=== PATIENT | female | born 1935 | race Caucasian/White ===

== ENCOUNTER → 2016-09-28 | Outpatient (CLI) | payer OTHER ==
[~2016-09-28] MED LIST: ACET1TAB84 PO; ARFO15NE INH; BACL10TA PO; BENZ100C7 PO; BUTA1CAP17 PO; CHOL100010 PO; CHOL100040 PO; CITA20TA4 PO; CITA20TA9 PO; CLX20 PO; CLX40 PO; CYAN500T PO; DICL1GEL28 TOP; DICL1GEL34 TD; FERR324T PO; FRCT/ PO; FRRS300 PO; FRS/40 PO; FURO-85 PO; GABA-113 PO; GFNSR600 PO; GUAI1TAB69 PO; HYDR-3983 PO; HYDR0.75 PO; HYDR1SOL PO; HYDR1SUS2 PO; IPRA1AER2 INH; IPRASOL4 INH; KETO0.5S22 OPL; KFL/250 PO; LEVO-366 PO; LEVO88TA3 PO; LIDO5DIS10 TOP; LINA1CAP; LINA1CAP2 PO; LINE600T5 PO; LORA-741 PO; LRS10 PO; LSX20 PO; LSX40 PO; LVQ250 PO; MCRK/10 PO; MELA1TAB48 PO; MELA1TAB5 PO; METH4PAK PO; MIDO2.5T PO; NAPR375T3 PO; NF84 PO; NRN300 PO; NUTR-31; NYSS/ PO; NYST100010 TOP; OMEP40CA PO; OMEP40CA41 PO; OXYC-57 PO; OYST1TAB; POLYSOL4 OPR; POLYSOL50 OPL; POTA1CAP2 PO; POTA1TAB97 PO; POTA20TA16 PO; PRD10 PO; PRED-301 PO; PRED10TA PO; PRED1SUS3 OPL; PRED20TA PO; PRED20TA2 PO; PSEU60TA80 PO; RIBO1TAB4 PO; ROPI0.25 PO; Remove Lidoderm Patch; SENN-65 PO; SENN8.6T7 PO; SIMV20TA2 PO; SPR25 PO; SPRIN/30 INH; TIOT1AER; TIOT1SPR INH; TORS20TA2 PO; TPRSR25 PO; TRAM-10 PO; ULT50 PO; VTMD1000 PO
--- NOTE | 2016-09-28 12:24 | DIAGNOSTIC IMAGING REPORT ---
CHEST 2 VIEWS ROUTINE CLINICAL HISTORY: Diaphragmatic paralysis. COMPARISON STUDY: Chest radiograph September 07, 2016. FINDINGS: Thoracolumbar and cervical spine fusion hardware and bilateral shoulder arthroplasties are incidentally noted. There is no evidence of pulmonary edema. No pneumothorax is present. Elevation of the right hemidiaphragm is noted. A moderate right pleural effusion is similar to prior exam. There is left lower lung atelectasis with a possible trace left pleural effusion. IMPRESSION: 1. No significant change in a moderate right pleural effusion with associated airspace opacity which could reflect atelectasis or consolidation. 2. Left lower lung atelectasis. 3. No evidence of pulmonary edema. No pneumothorax. Electronically signed by: Jake Lo M.D. 09/28/2016 12:22 PM Dictated Date/Time: 09/28/2016 12:20 PM
== END | disposition home or self-care (01) ==
LOC: C.RAD1850 12:01
PROVIDERS: ATTEND Internal Medicine
DX: J98.6 Disorders of diaphragm (principal); J90 Pleural effusion, not elsewhere classified; J98.11 Atelectasis

== ENCOUNTER → 2016-10-07 | Outpatient (CLI) | payer OTHER ==
--- NOTE | 2016-10-07 11:08 | DIAGNOSTIC IMAGING REPORT ---
CHEST 2 VIEWS ROUTINE CLINICAL HISTORY: R06.02 Shortness of [id number] Solitary pulmonary [id number] COMPARISON STUDY: Chest 09/28/2016. FINDINGS: Thoracolumbar and cervical spine fusion hardware and bilateral shoulder arthroplasties are incidentally noted. There is no evidence of pulmonary edema. No pneumothorax is present. Elevation of the right hemidiaphragm is noted. A moderate right pleural effusion is similar to prior exam. There is left lower lung atelectasis with a possible trace left pleural effusion. The heart remains mildly enlarged. IMPRESSION: 1. No significant change in a moderate right pleural effusion with associated airspace opacity which could reflect atelectasis or consolidation. 2. Left lower lung atelectasis. 3. No evidence of pulmonary edema. No pneumothorax. Electronically signed by: Jeff Maldonado M.D. 10/07/2016 11:06 AM Dictated Date/Time: 10/07/2016 11:04 AM
== END | disposition home or self-care (01) ==
LOC: C.RAD1850 10:46
PROVIDERS: ATTEND Internal Medicine
DX: R06.02 Shortness of breath (principal); R91.1 Solitary pulmonary nodule; R09.02 Hypoxemia

== ENCOUNTER → 2016-10-17 | Outpatient (CLI) | payer OTHER ==
--- NOTE | 2016-10-17 09:42 | DIAGNOSTIC IMAGING REPORT ---
CHEST CT WITHOUT CONTRAST CT DOSE: 628.70 mGy.cm HISTORY: J90 Pleural [id number] TECHNIQUE: Multiaxial CT images of the chest were performed without contrast. COMPARISON: Chest CTA 08/29/2016. FINDINGS: Bilateral shoulder arthroplasties and lower cervical spinal fusion hardware is again noted. There is also posterior spinal fusion hardware within the lower thoracic and visualized lumbar spine. Healing/healed right anterior fifth rib fracture. Old mild superior endplate compression deformity at T3, T4, and T6 remain unchanged. Surgical clips within the right upper quadrant. The unenhanced liver, spleen, left adrenal gland are unremarkable. Small right pleural effusion has decreased in size. There is trace fluid remaining within the right major fissure. No significant left pleural effusion. The heart is normal in size. No mediastinal or hilar lymphadenopathy. Right-sided chest wall subcutaneous emphysema has resolved. No pneumothorax. The central airways are patent. Stable 4 mm nodule within the right lung apex on image 61 of 291. Stable 2 mm nodule within the left lung apex on image 57. A few scattered punctate calcified granulomas. Left lower lobe linear densities favor subsegmental atelectasis are scarring. There is a 6 mm irregular nodule within the left lower lobe on image 168. This may represent residual atelectasis. Right basilar consolidation has improved. This also favors resolving atelectasis. IMPRESSION: 1. Decrease in size in the small right pleural effusion. 2. Right basilar consolidation has also improved. This favors resolving atelectasis. Continued follow-up is recommended to ensure resolution. 3. A few subcentimeter nodules within the lungs as described above with the largest in the left lower lobe measuring 6 mm. A 3-[address] follow-up is recommended to ensure stability/resolution. 4. Additional findings as described above. Electronically signed by: Jeff Maldonado M.D. 10/17/2016 9:40 AM Dictated Date/Time: 10/17/2016 9:30 AM
== END | disposition home or self-care (01) ==
LOC: C.CTS 09:10
PROVIDERS: ATTEND Surgery
DX: J90 Pleural effusion, not elsewhere classified (principal); R91.8 Other nonspecific abnormal finding of lung field

== ENCOUNTER 2016-10-20 16:20 | Emergency (ER) | payer OTHER ==
[~2016-10-20] VITALS: Ht 157.5 cm; Wt 93.0 kg
[~2016-10-20 16:20] MED LIST changes: -ARFO15NE INH; -BACL10TA PO; -BENZ100C7 PO; -BUTA1CAP17 PO; -CHOL100040 PO; -CITA20TA9 PO; -CLX20 PO; -CLX40 PO; -DICL1GEL34 TD; -FERR324T PO; -FRRS300 PO; -FURO-85 PO; -GABA-113 PO; -GFNSR600 PO; -GUAI1TAB69 PO; -HYDR-3983 PO; -HYDR0.75 PO; -HYDR1SUS2 PO; -IPRASOL4 INH; -KETO0.5S22 OPL; -KFL/250 PO; -LEVO-366 PO; -LINA1CAP; -LINE600T5 PO; -LORA-741 PO; -LSX20 PO; -LSX40 PO; -MCRK/10 PO; -MELA1TAB48 PO; -METH4PAK PO; -NAPR375T3 PO; -NUTR-31; -OMEP40CA41 PO; -OYST1TAB; -POTA1CAP2 PO; -POTA1TAB97 PO; -PRD10 PO; -PRED-301 PO; -PRED10TA PO; -PRED20TA PO; -PRED20TA2 PO; -PSEU60TA80 PO; -Remove Lidoderm Patch; -SENN-65 PO; -SENN8.6T7 PO; -SPR25 PO; -SPRIN/30 INH; -TIOT1AER; -TORS20TA2 PO; -TPRSR25 PO; -TRAM-10 PO; -ULT50 PO; -VTMD1000 PO
[2016-10-20 16:22] VITALS: TEMP 36.3; Ht 157.5 cm; Wt 93.0 kg
[2016-10-20] MEDS ORDERED: ALBUT/IPRATROP 3MG/0.5MG NEB 3 ML VIAL INH STA (16:36)
[2016-10-20] MEDS ORDERED: SODIUM CHLORIDE 0.9% 1000ML 1,000 ML IV STA (16:36)
[2016-10-20] MEDS ORDERED: OPTIRAY 320 IV PRN (16:45)
[2016-10-20 17:17] LABS: BASO % 0.1 %; BASO ABS # 0.02 K/uL (0-0.2); COMPLETE YES; EOS % 0.3 %; HEMATOCRIT 38.7 % (37-47); LYMPH % 9.7 %; LYMPH ABS # 1.43 K/uL (1.2-3.4); MEAN CELL VOLUME 90.8 fL (80-100); MEAN CORPUSCULAR HEMOGLOBIN 29.3 pg (25-34); MEAN CORPUSCULAR HGB CONC 32.3 g/dl (32-36); MONO % 5.6 %; NEUT % 82.3 %; PLATELET COUNT 255 K/uL (130-400); RED BLOOD COUNT 4.26 M/uL (4.2-5.4); WHITE BLOOD COUNT 14.78 K/uL (4.8-10.8)
[2016-10-20] MEDS ORDERED: IPRA1AER2 INH (17:19)
[2016-10-20] MEDS ORDERED: ARFO15NE INH (17:19)
[2016-10-20 17:23] VITALS: O2SAT 96
[2016-10-20] MEDS ORDERED: LSX20 PO (17:28)
[2016-10-20] MEDS ORDERED: FRCT/ PO (17:28)
[2016-10-20] MEDS ORDERED: IPRASOL4 INH (17:28)
[2016-10-20] MEDS ORDERED: POTA1CAP2 PO (17:28)
[2016-10-20] MEDS ORDERED: KETO0.5S22 OPL (17:28)
[2016-10-20] MEDS ORDERED: PRED-301 PO (17:36)
[2016-10-20] MEDS ORDERED: CHOL100040 PO (17:36)
[2016-10-20] MEDS ORDERED: BACL10TA PO (17:36)
[2016-10-20] MEDS ORDERED: ULT50 PO (17:36)
[2016-10-20] MEDS ORDERED: PRED10TA PO (17:36)
[2016-10-20] MEDS ORDERED: HYDR1SUS2 PO (17:39)
[2016-10-20 18:33] LABS: ALKALINE PHOSPHATASE 75 U/L (45-117); ALT/SGPT 37 U/L (12-78); AST/SGOT 20 U/L (15-37); BLOOD UREA NITROGEN 23 mg/dl (7-18); BUN/CREATININE RATIO 24.5 (10-20); CARBON DIOXIDE 27 mmol/L (21-32); CHLORIDE 105 mmol/L (98-107); CKMB/CK RATIO 3.7 (0-3.0); CREATININE 0.93 mg/dl (0.60-1.20); GLUCOSE 122 mg/dl (70-99); POTASSIUM 4.4 mmol/L (3.5-5.1); SODIUM 142 mmol/L (136-145)
[2016-10-20 19:09] LABS: INR 0.9 (0.9-1.1); PARTIAL THROMBOPLASTIN RATIO 0.9; PROTHROMBIN TIME (PATIENT) 9.9 SECONDS (9.0-12.0)
--- NOTE | 2016-10-20 19:34 | DIAGNOSTIC IMAGING REPORT ---
CHEST CTA for PULMONARY ARTERIES CT DOSE: 590.24 mGy.cm HISTORY: Atypical chest pain. TECHNIQUE: Multiaxial CT images of the chest were performed following the intravenous administration of contrast to evaluate the pulmonary arteries. Maximal intensity projection images were also obtained. COMPARISON STUDY: Chest CT 10/17/2016. FINDINGS: There is a normal caliber thoracic aorta with no evidence for dissection. There is no evidence for pulmonary embolus. No mediastinal or hilar lymphadenopathy. Small right pleural effusion persists. There is no significant left pleural effusion. Limited views of the upper abdomen demonstrate a normal spleen. The left adrenal gland is unremarkable. There are surgical clips in the region of the right adrenal gland. Fatty changes within the liver. Posterior fusion hardware within the lower thoracic spine. There is also cervical spine fusion hardware which is partially visualized. Bibasilar densities persist. No pneumothorax. There is a mosaic attenuation to the lungs. This may represent air trapping. A few scattered nodular density within the lungs persist with the largest in the left lower lobe measuring 6 mm. Stable 4 mm nodule within the right lung apex. Old mild superior endplate compression deformity is at the upper thoracic spine also remain unchanged. IMPRESSION: 1. No evidence for pulmonary embolus. 2. No significant change from the prior study. 3. Small right pleural effusion and bibasilar densities persist. These could represent atelectasis or pneumonia. 4. A few scattered subcentimeter pulmonary nodules with the largest in the left lower lobe measuring 6 mm. A 3 to six-month chest CT follow-up is recommended to ensure resolution. 5. Mosaic attenuation to the lungs which may represent mild air trapping. Electronically signed by: Jeff Maldonado M.D. 10/20/2016 7:33 PM Dictated Date/Time: 10/20/2016 7:24 PM
[2016-10-20] MEDS ORDERED: LEVOFLOXACIN 250 MG TAB PO STA (20:16)
[2016-10-20] MEDS ORDERED: LEVO-366 PO (20:26)
--- NOTE | 2016-10-20 20:27 | EMERGENCY ROOM VISIT NOTE ---
History Report prepared by Suzanna: Huber Zelaya Under the Supervision of: Dr. Denzel Pineda D.O. First contact with patient: 16:23 Chief Complaint: SHORTNESS OF BREATH Stated Complaint: SOB,WEIGHT GAIN, CHEST PAIN Nursing Triage Summary: SOB "for awhile" and excessive weight gain x2 months. Swelling to abdomen and facial swelling. History of Present Illness The patient is a 81 year old female who presents to the Emergency Room with complaints of persistent shortness of breath beginning 3 weeks ago. Per the patient's daughter, she had surgery in August of 2016 to stretch the right diaphragm because of worsening shortness of breath. She developed bilateral pneumonia 2 days following the surgery. 3 weeks ago the shortness of breath returned and they tried to cut back on her prednisone. Also 3 weeks ago she was diagnosed with a pleural effusion. She had an appointment today and was told the pleural effusion was now resolved per a recent CT scan. Since August of 2016 she has gained about 30 pounds of weight, and she normally retains fluids in her legs but not with this recent weight gain. The patient has had chest pain along with her shortness of breath. She is on Lasix. Per the patient, her abdomen feels larger than at baseline, and her legs feel "different than normal ". Source of History: patient, family (daughter) Onset: 3 weeks ago Position: other (lungs) Quality: other (shortness of breath) Timing: other (persistent) Associated Symptoms: + chest pain Review of Systems See HPI for pertinent positives & negatives. A total of 10 systems reviewed and were otherwise negative. Past Medical & Surgical Medical Problems: (1) Abdominal pain (2) Appendectomy (3) Asthma (4) Cervical vertebral fusion (5) Diaphragmatic paralysis (6) Diarrhea (7) DJD of right shoulder (8) Dyspnea, unspecified (9) Gastroesophageal reflux disease (10) Syncope due to orthostatic hypotension Family History Diabetes mellitus FH: cancer FH: gallbladder disease FH: heart disease FH: lung disease Hypertension Kidney disease or stones Social History Smoking Status: Never Smoker Alcohol Use: none Drug Use: none Marital Status: single Housing Status: lives with family Occupation Status: retired Current/Historical Medications Scheduled Calcium Carbonate (Calcium Carbonate), 1 TAB PO HS Cholecalciferol (Vitamin D-1000), 1,000 UNITS PO DAILY Citalopram Hydrobromide (Citalopram Hydrobromide), 20 MG PO DAILY Cyanocobalamin (Vitamin B-12), 1,000 MCG PO DAILY Furosemide (Furosemide), 20 MG PO UD Gabapentin (Gabapentin), 300 MG PO DAILY@1200 Ketorolac Tromethamine (Ophth) (Ketorolac Tromethamine), 1 DROP OPL QID Levothyroxine Sodium (Levothyroxine Sodium), 88 MCG PO DAILY Lidocaine (Lidoderm Patch 5% Patch), 1 PATCH TOP DAILY Melatonin (Kp Melatonin), 1 TAB PO HS Midodrine Hcl (Midodrine Hcl), 1 TAB PO TID Nystatin (Topical) (Nystop), 1 APPLN TOP BID UD Omeprazole (Prilosec), 40 MG PO BID Polyethylene Glycol-Propylene (Systane), 1 DROPS OPR QID Potassium Chloride (Potassium Chloride Er), 20 MEQ PO BID Prednisolone Acetate (Ophth) (Pred Forte 1% Oph), 1 DROPS OPL QID Prednisone (Prednisone), 5 MG PO DAILY Prednisone Tab (Prednisone), 10 MG PO DAILY Riboflavin (Riboflavin), 1 TAB PO DAILY Simvastatin (Zocor), 20 MG PO HS Tiotropium [place] Monohydrate (Spiriva Respimat), 2 PUFFS INH DAILY Scheduled PRN Acetamin/Butalbital/Caffeine (Fioricet), 1 TAB PO Q4 PRN for Headache Acetaminophen (Tylenol Arthritis Ext Rel), 650 MG PO Q4H PRN for Pain Arformoterol Tartrate (Brovana), 15 MCG INH BID PRN for SOB/Wheezing Baclofen (Lioresal), 10 MG PO TID PRN for Muscle Spasms Chlorphenir/Hydrocod Polistir (Tussionex), 5 ML PO Q6 PRN for Cough Diclofenac Sod (Voltaren 1% Top Gel), 2 GM TOP QID PRN for Pain Ipratropium-Albuterol (Combivent Respimat), 1 PUFFS INH QID PRN for SOB/Wheezing Ipratropium-Albuterol (Duoneb), 1 TREATMENT INH Q4H PRN for SOB/Wheezing Linaclotide (Linzess), 1 CAP PO QAM PRN for GI Upset Ropinirole (Requip), 0.25-0.5 MG PO HS PRN for RESTLESS LEGS Tramadol HCl (Tramadol HCl), 50 MG PO Q4-6HRS PRN for Pain Allergies Coded Allergies: Pneumococcal Vaccine (Verified Allergy, Severe, SHORTNESS OF BREATH, ) Erythromycin (Verified Allergy, Mild, RASH, 08/26/16) Adhesives (Verified Allergy, Unknown, TAPE-REDNESS, BLISTERS, 08/26/16) Metronidazole (Verified Allergy, Unknown, skin rash, 08/26/16) allergic to generic form Phenazopyridine (Verified Allergy, Unknown, abdominal pain/rash, 08/26/16) Polymyxin B (Verified Allergy, Unknown, 08/26/16) Salicylates (Verified Allergy, Unknown, pt states rash with ASA 325 but not ASA 81mg, 08/26/16) Sulfa Antibiotics (Verified Allergy, Unknown, "SULFA DRUGS" = RASH, ) Tetracycline (Verified Allergy, Unknown, RASH, 08/26/16) Morphine (Verified Adverse Reaction, Intermediate, urinary retention - oral morphine only, 08/26/16) Diltiazem (Verified Adverse Reaction, Mild, FLUID RETENTION, 08/26/16) Metoclopramide (Verified Adverse Reaction, Mild, TREMORS, 08/26/16) Bacitracin (Verified Adverse Reaction, Unknown, "MAKES IT WORSE"-OK IF NOT OTC MEDICATION, 08/26/16) OKAY IF NOT OVER THE COUNTER MEDICATION Physical Exam Vital Signs Date Time Temp Pulse Resp B/P Pulse Ox O2 Delivery O2 Flow Rate FiO2 10/20/16 18:54 92 16 163/80 94 Room Air 10/20/16 17:32 86 10/20/16 17:23 96 Room Air 10/20/16 16:25 96 Room Air 10/20/16 16:22 36.3 98 22 174/77 96 Room Air Physical Exam CONSTITUTIONAL/VITAL SIGNS: Reviewed / noted above. GENERAL: Non-toxic in appearance. INTEGUMENTARY: Warm, dry, and [place]. HEAD: Normocephalic. EYES: without scleral icterus or trauma. ENT/OROPHARYNX: clear and moist. LYMPHADENOPATHY/NECK: Is supple without lymphadenopathy or meningismus. RESPIRATORY: Crackles noted in the left base. CARDIOVASCULAR: Regular rate and rhythm. GI/ABDOMEN: Soft and nontender. No organomegaly or pulsatile mass. No rebound or guarding. Normal bowel sounds. EXTREMITIES: Warm and well perfused. BACK: No CVA tenderness. NEUROLOGICAL: Intact without focal deficits. PSYCHIATRIC: normal affect. MUSCULOSKELETAL: Normally developed with good muscle tone. Medical Decision & Procedures ER Provider Diagnostic Interpretation: CT results as stated below per my review and radiologist interpretation: CHEST CTA for PULMONARY ARTERIES FINDINGS: There is a normal caliber thoracic aorta with no evidence for dissection. There is no evidence for pulmonary embolus. No mediastinal or hilar lymphadenopathy. Small right pleural effusion persists. There is no significant left pleural effusion. Limited views of the upper abdomen demonstrate a normal spleen. The left adrenal gland is unremarkable. There are surgical clips in the region of the right adrenal gland. Fatty changes within the liver. Posterior fusion hardware within the lower thoracic spine. There is also cervical spine fusion hardware which is partially visualized. Bibasilar densities persist. No pneumothorax. There is a mosaic attenuation to the lungs. This may represent air trapping. A few scattered nodular density within the lungs persist with the largest in the left lower lobe measuring 6 mm. Stable 4 mm nodule within the right lung apex. Old mild superior endplate compression deformity is at the upper thoracic spine also remain unchanged. IMPRESSION: 1. No evidence for pulmonary embolus. 2. No significant change from the prior study. 3. Small right pleural effusion and bibasilar densities persist. These could represent atelectasis or pneumonia. 4. A few scattered subcentimeter pulmonary nodules with the largest in the left lower lobe measuring 6 mm. A 3 to six-month chest CT follow-up is recommended to ensure resolution. 5. Mosaic attenuation to the lungs which may represent mild air trapping. Electronically signed by: Jeff Maldonado M.D. 10/20/2016 7:33 PM Dictated Date/Time: 10/20/2016 7:24 PM Laboratory Results 10/20/16 16:52 Red Blood Count 4.26, Mean Corpuscular Volume 90.8, Mean Corpuscular Hemoglobin 29.3, Mean Corpuscular Hemoglobin Concent 32.3, Mean Platelet Volume 10.0, Neutrophils (%) (Auto) 82.3, Lymphocytes (%) (Auto) 9.7, Monocytes (%) (Auto) 5.6, Eosinophils (%) (Auto) 0.3, Basophils (%) (Auto) 0.1, Neutrophils # (Auto) 12.16, Lymphocytes # (Auto) 1.43, Monocytes # (Auto) 0.83, Eosinophils # (Auto) 0.05, Basophils # (Auto) 0.02 10/20/16 16:52 Test 10/20/16 16:52 10/20/16 18:52 White Blood Count 14.78 K/uL (4.8-10.8) Red Blood Count 4.26 M/uL (4.2-5.4) Hemoglobin 12.5 g/dL (12.0-16.0) Hematocrit 38.7 % (37-47) Mean Corpuscular Volume 90.8 fL (80-100) Mean Corpuscular Hemoglobin 29.3 pg (25-34) Mean Corpuscular Hemoglobin Concent 32.3 g/dl (32-36) Platelet Count 255 K/uL (130-400) Mean Platelet Volume 10.0 fL (7.4-10.4) Neutrophils (%) (Auto) 82.3 % Lymphocytes (%) (Auto) 9.7 % Monocytes (%) (Auto) 5.6 % Eosinophils (%) (Auto) 0.3 % Basophils (%) (Auto) 0.1 % Neutrophils # (Auto) 12.16 K/uL (1.4-6.5) Lymphocytes # (Auto) 1.43 K/uL (1.2-3.4) Monocytes # (Auto) 0.83 K/uL (0.11-0.59) Eosinophils # (Auto) 0.05 K/uL (0-0.5) Basophils # (Auto) 0.02 K/uL (0-0.2) RDW Standard Deviation 56.3 fL (36.4-46.3) RDW Coefficient of Variation 17.1 % (11.5-14.5) Immature Granulocyte % (Auto) 2.0 % Immature Granulocyte # (Auto) 0.29 K/uL (0.00-0.02) Anion Gap 10.0 mmol/L (3-11) Est Creatinine Clear Calc Drug Dose 52.1 ml/min Estimated GFR () 67.7 Estimated GFR (Non- 58.5 BUN/Creatinine Ratio 24.5 (10-20) Calcium Level 8.0 mg/dl (8.5-10.1) Total Bilirubin 0.4 mg/dl (0.2-1) Aspartate Amino Transf (AST/SGOT) 20 U/L (15-37) Alanine Aminotransferase (ALT/SGPT) 37 U/L (12-78) Alkaline Phosphatase 75 U/L (45-117) Total Creatine Kinase 57 U/L (26-192) Creatine Kinase MB 2.1 ng/ml (0.5-3.6) Creatine Kinase MB Ratio 3.7 (0-3.0) Troponin I < 0.015 ng/ml (0-0.045) Pro-B-Type Natriuretic Peptide 168 pg/ml (0-1800) Total Protein 7.1 gm/dl (6.4-8.2) Albumin 3.5 gm/dl (3.4-5.0) Globulin 3.6 gm/dl (2.5-4.0) Albumin/Globulin Ratio 1.0 (0.9-2) Prothrombin Time 9.9 SECONDS (9.0-12.0) Prothromb Time International Ratio 0.9 (0.9-1.1) Activated Partial Thromboplast Time 23.8 SECONDS (21.0-31.0) Partial Thromboplastin Ratio 0.9 Laboratory results as stated above per my review. Medications Administered Medications (Trade) Dose Ordered Sig/Natasha Route Start Time Stop Time Status Last Admin Dose Admin Albuterol/ Ipratropium 3 ml 3 ml NOW STAT INH 10/20/16 16:36 10/20/16 16:39 DC 10/20/16 17:20 3 ML Sodium Chloride (Nss 1000ml) 1,000 ml @ 150 mls/hr Q6H40M STAT IV 10/20/16 16:36 10/20/16 23:15 10/20/16 17:22 150 MLS/HR ECG Indication: SOB/dyspnea Rate (beats per minute): 86 Rhythm: normal sinus Findings: no acute ischemic change, no ectopy ED Course 1628: Previous medical records were reviewed. The patient was evaluated in room C4. A complete history and physical examination was performed. 1635: Ordered NSS 1,000 ml @ 150 mls/hr IV, and Duoneb 3 ml INH. 2024: On reevaluation, the patient is hemodynamically stable. I discussed the results and findings with the patient. She verbalized agreement of the treatment plan. The patient was discharged home. Medical Decision the differential was considered includes acute myocardial infarction, acute coronary syndrome, myocarditis, pericarditis, pericardial effusions /tamponad, esophageal perforation, pulmonary embolism, pneumonia, pneumothorax, cardiomyopathy, congestive heart, anemia , COPD/asthma exacerbation. This is a 81-year-old female who presents to the ED with a chief complaint of shortness of breath. The patient, according to the daughter had her diaphragm stretched summer. She saw Dr. Thapa today about 1 hour prior to arrival. The patient had a CAT scan 2 days ago without contrast did not show any abnormality and did show some improvement of her effusion. Patient has an appointment to see door closer office tomorrow. She reports some chest pain as well. Initial blood pressure was elevated 174/77. Her exam reveals some minimal crackles in the left base. EKG shows a normal sinus rhythm. White blood cell count is 14.7. The BUN is 23. Complete metabolic panel was otherwise unremarkable. Troponin is negative. BNP is normal. Albumin is normal. CT scan of the chest did not reveal PE. It is not significant change from the one done couple of days ago. Atelectasis versus pneumonia. After discussing the results with the patient and her daughter, the decision was made to place the patient on a course of Levaquin. She was given this 7 days. Impression Primary Impression: Pneumonia Additional Impression: Dyspnea Scribe Attestation The scribe's documentation has been prepared under my direction and personally reviewed by me in its entirety. I confirm that the note above accurately reflects all work, treatment, procedures, and medical decision making performed by me. Departure Information Dispostion Home / Self-Care Prescriptions Levofloxacin (Levaquin) 500 Mg Tab 500 MG PO DAILY for 7 Days, #7 TAB Prov: Denzel Pineda D.O. 10/20/16 Referrals Michael De Souza M.D. (PCP) Patient Instructions My [facility] Additional Instructions Levaquin as prescribed. Follow-up with your doctor as scheduled. Problem Qualifiers
[2016-10-20 20:50] VITALS: BP 167/96; PULSE 97; O2SAT 95
[2016-12-15] MEDS ORDERED: PRED10TA PO (14:41)
[2016-12-15] MEDS ORDERED: GFNSR600 PO (14:41)
[2016-12-15] MEDS ORDERED: LSX20 PO (14:41)
[2016-12-15] MEDS ORDERED: CLX40 PO (14:41)
[2016-12-15] MEDS ORDERED: BENZ100C7 PO (14:41)
[2016-12-15] MEDS ORDERED: SENN8.6T7 PO (14:41)
[2016-12-15] MEDS ORDERED: FRCT/ PO (14:41)
[2016-12-15] MEDS ORDERED: TPRSR25 PO (14:41)
[2016-12-15] MEDS ORDERED: POTA1CAP2 PO (14:41)
[2016-12-15] MEDS ORDERED: ULT50 PO (14:41)
[2016-12-15] MEDS ORDERED: IPRA1AER2 INH (14:41)
[2017-01-14] MEDS ORDERED: GABA-113 PO (15:58)
[2017-01-14] MEDS ORDERED: VTMD1000 PO (15:58)
[2017-01-25] MEDS ORDERED: NAPR375T3 PO (11:26)
[2017-01-28] MEDS ORDERED: FRRS300 PO (08:52)
[2017-01-28] MEDS ORDERED: PRD10 PO (08:52)
[2017-01-28] MEDS ORDERED: SPR25 PO (08:52)
[2017-01-28] MEDS ORDERED: LSX40 PO (08:52)
[2017-02-09] MEDS ORDERED: TIOT1AER (11:35)
[2017-02-09] MEDS ORDERED: TRAM-10 PO (11:35)
[2017-02-09] MEDS ORDERED: PRED20TA2 PO (11:35)
[2017-04-19] MEDS ORDERED: FERR324T PO (11:29)
[2017-04-21] MEDS ORDERED: PRD10 PO (11:07)
[2017-04-21] MEDS ORDERED: CLX20 PO (11:07)
== END 2016-10-20 20:51 | disposition home or self-care (01) ==
LOC: C.EDB 16:22 → C.EDC 20:51
DX: J18.9 Pneumonia, unspecified organism (principal); R06.00 Dyspnea, unspecified; J45.909 Unspecified asthma, uncomplicated; K21.9 Gastro-esophageal reflux disease without esophagitis

== ENCOUNTER 2016-10-21 13:49 | Inpatient (IN) | payer OTHER ==
[~2016-10-21] VITALS: Ht 157.5 cm; Wt 88.4 kg
[~2016-10-21 13:49] MED LIST changes: +ARFO15NE INH; +BACL10TA PO; -CHOL100010 PO; +CHOL100040 PO; -FRS/40 PO; -HYDR1SOL PO; +HYDR1SUS2 PO; +IPRASOL4 INH; +KETO0.5S22 OPL; +LEVO-366 PO; -LRS10 PO; +LSX20 PO; -LVQ250 PO; -NYSS/ PO; -OXYC-57 PO; -POLYSOL50 OPL; +POTA1CAP2 PO; -POTA20TA16 PO; +PRED-301 PO; +PRED10TA PO; +ULT50 PO
[2016-10-21 14:37] VITALS: BP 172/89; PULSE 87; TEMP 36.6; O2SAT 98; Ht 157.5 cm; Wt 88.4 kg
[2016-10-21] MEDS ORDERED: MAGNESIUM HYDROXIDE SUSP 30 ML UDC PO PRN (15:00)
[2016-10-21] MEDS ORDERED: ALUMINUM/MAGNESIUM/SIMETH (MAALOX MAX) 30 ML UDC PO PRN (15:00)
[2016-10-21] MEDS ORDERED: LORAZEPAM 2 MG/ML 1 ML VIAL IV PRN (15:00)
[2016-10-21] MEDS ORDERED: LEVALBUTEROL/IPRATROPIUM NEB INH SCH (15:00)
[2016-10-21] MEDS ORDERED: ZOLPIDEM TARTRATE 5 MG TAB PO PRN (15:00)
[2016-10-21] MEDS ORDERED: MoRPHine SULFATE 2 MG/ML CARP IV PRN ×2 (15:00→15:15)
[2016-10-21] MEDS ORDERED: ACETAMINOPHEN 325 MG TAB PO PRN (15:00)
[2016-10-21] MEDS ORDERED: ONDANSETRON INJ 2 MG/ML 2 ML VIAL IV PRN (15:00)
[2016-10-21] MEDS ORDERED: PROMETHAZINE HCL INJ 12.5 MG in SODIUM CHLORIDE 0.9% 50ML 50 ML IV PRN (15:00)
[2016-10-21] MEDS ORDERED: DiphenhydrAMINE HCL 50 MG/ML VIAL IV PRN (15:00)
[2016-10-21] MEDS ORDERED: BUDESONIDE 0.5 MG/2 ML VIAL (PULMICORT) INH ONE (15:12)
[2016-10-21] MEDS ORDERED: DICLOFENAC SOD 1% GEL 100 GM TUBE EXT PRN (15:15)
[2016-10-21] MEDS ORDERED: BUTALBITAL/ACETAMIN/CAFFEINE TAB PO PRN (15:15)
[2016-10-21] MEDS ORDERED: NON-FORMULARY MEDICATION (Acetaminophen (Tylenol Arthritis Ext Rel) 650 MG) PO PRN (15:15)
[2016-10-21] MEDS ORDERED: CHLORPH/HYDROCOD EXT REL LIQ 5ML UDP PO PRN (15:15)
[2016-10-21] MEDS ORDERED: ROPINIROLE HCL 0.25 MG TAB PO PRN (15:15)
[2016-10-21] MEDS ORDERED: TRAMADOL HCL 50 MG TAB PO PRN (15:15)
--- NOTE | 2016-10-21 15:24 | DIAGNOSTIC IMAGING REPORT ---
CHEST ONE VIEW PORTABLE CLINICAL HISTORY: Is a breath, dyspnea on exertion. COMPARISON STUDY: 10/07/2016 FINDINGS: There are postsurgical changes present within the lumbar spine cervical spine. The heart is the upper limits of normal in size. There is a small right pleural effusion. There are bibasal airspace opacities likely atelectatic.[ IMPRESSION: 1. Persistent right pleural effusion 2. Bibasilar airspace opacities likely atelectatic 3. No evidence of failure Electronically signed by: Edenilson Barrett M.D. 10/21/2016 3:23 PM Dictated Date/Time: 10/21/2016 3:22 PM
[2016-10-21] MEDS ORDERED: LEVALBUTEROL 1.25MG/0.5ML NEB INH PRN (15:45)
[2016-10-21] MEDS ORDERED: IPRATROPIUM BROMIDE NEB SOLN 0.02% 2.5 ML VIAL INH PRN (15:45)
[2016-10-21 16:00] VITALS: O2SAT 98
[2016-10-21] MEDS ORDERED: LORAZEPAM INJ 0.5 MG in SYRINGE 0.75 ML IV PRN (16:00)
[2016-10-21] MEDS ORDERED: PERFLUTREN LIPID MICROSPHERE (DEFINITY) IV ONE (16:20)
[2016-10-21] MEDS: KETOROLAC 0.5% OP SOLN 3 ML BTL OPL SCH ×2 (17:04→20:20)
[2016-10-21] MEDS: PrednisoLONE ACET 1% OP SUSP 5 ML BTL OPL SCH ×2 (17:04→20:20)
--- NOTE | 2016-10-21 17:11 | ECHOCARDIOGRAM REPORT ---
*NOTICE TO RECEIVING CONSTITUTION PARTY AGENCY This information is strictly Confidential and protected under [place] law. [place] law prohibits you from making any further disclosure of this information unless further disclosure is expressly permitted by the written consent of the person to whom it pertains or is authorized by law. A general authorization for the release of medical or other information is not sufficient for this purpose. Hospital accepts no responsibility if the information is made available to any other person, INCLUDING THE PATIENT. Interpretation Summary * Name: DONELL SHANE Study Date: 10/21/2016 03:46 PM BP: 172/89 mmHg * Patient Location: [facility] HR: 87 * : 1935 (M/d/yyyy) Gender: Female Height: 62 in * Age: 81 yrs Ethnicity: CA Weight: 203 lb * Ordering Physician: Kori * Performed By: Alyes Lindquist RCS * * Reason For Study: UMANA * BSA: 1.9 m2 * -- Conclusions -- * Left ventricular systolic function is normal. * No regional wall motion abnormalities noted. * Ejection Fraction = 65-70%. * There is mild concentric left ventricular hypertrophy. * Grade I diastolic dysfunction, (abnormal relaxation pattern). * No significant valvular pathology. Procedure Details * A complete two-dimensional transthoracic echocardiogram was performed (2D, M-mode, Doppler and color flow Doppler). Left Ventricle * The left ventricle is normal in size. * There is mild concentric left ventricular hypertrophy. * Ejection Fraction = 65-70%. * Left ventricular systolic function is normal. * No regional wall motion abnormalities noted. Right Ventricle * The right ventricle is not well visualized. * The right ventricular systolic function is normal as assessed by tricuspid annular plane systolic excursion (TAPSE) (normal >1.5 cm). Atria * The left atrium is mildly dilated. * Right atrium not well visualized. * There is no evidence of atrial septal defect, but resolution does not allow assessment for a patent foramen ovale. * Lipomatous hypertrophy of the interatrial septum is noted. Mitral Valve * The mitral valve is grossly normal. * Significant mitral regurgitation is absent. Tricuspid Valve * The tricuspid valve is not well visualized. * Significant tricuspid regurgitation is absent. Aortic Valve * The aortic valve is not well visualized. * The aortic valve opens well. * There is no significant aortic regurgitation. Pulmonic Valve * The pulmonary valve is not well seen, but the Doppler examination is normal without significant regurgitation or stenosis. * There is no significant pulmonary regurgitation. Great Vessels * The aortic root is normal size. Pericardium/Pleural * There is no pericardial effusion. Great Vessels * Normal inferior vena cava size and collapsability with sniff indicates a normal right atrial pressure of 3 mmHg Left Ventricular Diastolic Function * Grade I diastolic dysfunction, (abnormal relaxation pattern). MMode 2D Measurements and Calculations IVSd 1.2 cm IVSs 1.3 cm LVIDd 4.1 cm LVIDs 2.7 cm LVPWd 1.2 cm LVPWs 1.7 cm IVS/LVPW 1.1 FS 34.8 % EDV(Teich) 74.4 ml ESV(Teich) 26.5 ml EF(Teich) 64.4 % EDV(cubed) 69.1 ml ESV(cubed) 19.2 ml EF(cubed) 72.2 % % IVS thick 7.9 % % LVPW thick 42.0 % LV mass(C)d 173.4 grams LV mass(C)dI 90.2 grams/m\S\2 LV mass(C)s 137.2 grams LV mass(C)sI 71.3 grams/m\S\2 CO(Teich) 3.7 l/min CI(Teich) 1.9 l/min/m\S\2 SV(Teich) 47.9 ml SI(Teich) 24.9 ml/m\S\2 CO(cubed) 3.9 l/min CI(cubed) 2.0 l/min/m\S\2 SV(cubed) 49.9 ml SI(cubed) 26.0 ml/m\S\2 Ao root diam 3.4 cm Ao root area 9.0 cm\S\2 ACS 1.8 cm LA dimension 3.7 cm LA/Ao 1.1 LVAd ap4 36.4 cm\S\2 LVLd ap4 8.9 cm EDV(MOD-sp4) 121.0 ml LVAs ap4 15.7 cm\S\2 LVLs ap4 6.7 cm ESV(MOD-sp4) 31.0 ml EF(MOD-sp4) 74.4 % LVAd ap2 26.6 cm\S\2 LVLd ap2 7.7 cm EDV(MOD-sp2) 76.0 ml LVAs ap2 12.0 cm\S\2 LVLs ap2 6.4 cm ESV(MOD-sp2) 20.0 ml EF(MOD-sp2) 73.7 % CO(MOD-sp4) 7.0 l/min CI(MOD-sp4) 3.6 l/min/m\S\2 SV(MOD-sp4) 90.0 ml SI(MOD-sp4) 46.8 ml/m\S\2 CO(MOD-sp2) 4.4 l/min CI(MOD-sp2) 2.3 l/min/m\S\2 SV(MOD-sp2) 56.0 ml SI(MOD-sp2) 29.1 ml/m\S\2 Doppler Measurements and Calculations MV E max anson 77.9 cm/sec MV A max anson 100.0 cm/sec MV E/A 0.78 MV P1/2t max anson 81.1 cm/sec MV P1/2t 70.0 msec MVA(P1/2t) 3.1 cm\S\2 MV dec slope 339.5 cm/sec\S\2 MV dec time 0.20 sec Ao V2 max 141.2 cm/sec Ao max PG 8.0 mmHg Ao max PG (full) 0.13 mmHg LV V1 max PG 7.8 mmHg LV V1 max 140.1 cm/sec PA V2 max 81.4 cm/sec PA max PG 2.7 mmHg TR max anson 231.7 cm/sec
[2016-10-21 17:13] LABS: CKMB/CK RATIO 4.2 (0-3.0)
[2016-10-21] MEDS: IPRATROPIUM BROMIDE NEB SOLN 0.02% 2.5 ML VIAL INH SCH (19:01)
[2016-10-21] MEDS: BUDESONIDE 0.5 MG/2 ML VIAL (PULMICORT) INH SCH (19:01)
[2016-10-21 19:02] VITALS: PULSE 84; O2SAT 95
[2016-10-21] MEDS: LEVALBUTEROL 1.25MG/0.5ML NEB INH SCH (19:02)
[2016-10-21 19:41] VITALS: BP 130/77; PULSE 90; TEMP 37.2; O2SAT 92
[2016-10-21 19:55] VITALS: O2SAT 98
[2016-10-21] MEDS: PANTOprazole SOD 40 MG TAB PO SCH (20:13)
[2016-10-21] MEDS: MIDODRINE 2.5 MG TAB PO SCH (20:13)
[2016-10-21] MEDS: SIMVASTATIN 20 MG TAB PO SCH (20:13)
[2016-10-21] MEDS: POTASSIUM CHLORIDE 20 MEQ TABCR PO SCH (20:14)
[2016-10-21] MEDS: NYSTATIN POWDER 15GM BTL EXT SCH (20:19)
[2016-10-21] MEDS ORDERED: NON-FORMULARY MEDICATION (Melatonin (Kp Melatonin) 1 TAB) PO SCH (21:00)
[2016-10-21 23:04] LABS: CKMB/CK RATIO 4.9 (0-3.0)
--- NOTE | 2016-10-21 23:10 | History and Physical ---
History & Physical Date & Time of Service: Oct 21, 2016 at 22:52 Chief Complaint: Sob,f, Primary Care Physician: Michael De Souza M.D. History of Present Illness Source: patient The patient is a 81-year-old female who is being directly admitted from her outpatient PCP office due to issues with persistent shortness of breath over the past 3 weeks. She had presented to the emergency department last evening, and was started on levofloxacin orally. She has had a Harpreet fundoplication, and most recently had surgery in August 2016 related to her diaphragm and then had developed bilateral pneumonia 2 days post procedure. She has chronically been on prednisone, and when her prednisone is tapered she begins to develop issues with shortness of breath she had an issue with intermittent right sided pleural effusion. She reportedly has gained about 30 pounds since surgery in August 2016 patient feels that her abdomen is larger than her baseline and her legs feel different likely retaining more fluid. 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 Status: Chronic (5) Gastroesophageal reflux disease Status: Chronic Family History Diabetes mellitus FH: cancer FH: gallbladder disease FH: heart disease FH: lung disease Hypertension Kidney disease or stones Social History Smoking Status: Never Smoker Drug Use: none Marital Status: single Housing status: lives with family Occupational Status: retired Immunizations History of Influenza Vaccine: N/A Influenza Vaccine Date: Jun 18, 2012 History of Tetanus Vaccine?: Yes Tetanus Immunization Date: Mar 18, 2004 History of Pneumococcal: Yes Pneumococcal Date: May 31, 2010 History of Hepatitis B Vaccine: No Multi-Drug Resistant Organisms History of MDRO: Yes Type of MDRO: MRSA Allergies Coded Allergies: Pneumococcal Vaccine (Verified Allergy, Severe, SHORTNESS OF BREATH, ) Erythromycin (Verified Allergy, Mild, RASH, 08/26/16) Adhesives (Verified Allergy, Unknown, TAPE-REDNESS, BLISTERS, 08/26/16) Metronidazole (Verified Allergy, Unknown, skin rash, 08/26/16) allergic to generic form Phenazopyridine (Verified Allergy, Unknown, abdominal pain/rash, 08/26/16) Polymyxin B (Verified Allergy, Unknown, 08/26/16) Salicylates (Verified Allergy, Unknown, pt states rash with ASA 325 but not ASA 81mg, 08/26/16) Sulfa Antibiotics (Verified Allergy, Unknown, "SULFA DRUGS" = RASH, ) Tetracycline (Verified Allergy, Unknown, RASH, 08/26/16) Morphine (Verified Adverse Reaction, Intermediate, urinary retention - oral morphine only, 08/26/16) Diltiazem (Verified Adverse Reaction, Mild, FLUID RETENTION, 08/26/16) Metoclopramide (Verified Adverse Reaction, Mild, TREMORS, 08/26/16) Bacitracin (Verified Adverse Reaction, Unknown, "MAKES IT WORSE"-OK IF NOT OTC MEDICATION, 08/26/16) OKAY IF NOT OVER THE COUNTER MEDICATION Home Medications Scheduled Calcium Carbonate (Calcium Carbonate), 1 TAB PO HS Cholecalciferol (Vitamin D-1000), 1,000 UNITS PO DAILY Citalopram Hydrobromide (Citalopram Hydrobromide), 20 MG PO DAILY Cyanocobalamin (Vitamin B-12), 1,000 MCG PO DAILY Furosemide (Furosemide), 20 MG PO UD Gabapentin (Gabapentin), 300 MG PO DAILY@1200 Ketorolac Tromethamine (Ophth) (Ketorolac Tromethamine), 1 DROP OPL QID Levofloxacin (Levaquin), 500 MG PO DAILY Levothyroxine Sodium (Levothyroxine Sodium), 88 MCG PO DAILY Lidocaine (Lidoderm Patch 5% Patch), 1 PATCH TOP DAILY Melatonin (Kp Melatonin), 1 TAB PO HS Midodrine Hcl (Midodrine Hcl), 1 TAB PO TID Nystatin (Topical) (Nystop), 1 APPLN TOP BID UD Omeprazole (Prilosec), 40 MG PO BID Polyethylene Glycol-Propylene (Systane), 1 DROPS OPR QID Potassium Chloride (Potassium Chloride Er), 20 MEQ PO BID Prednisolone Acetate (Ophth) (Pred Forte 1% Oph), 1 DROPS OPL QID Prednisone (Prednisone), 5 MG PO DAILY Prednisone Tab (Prednisone), 10 MG PO DAILY Riboflavin (Riboflavin), 1 TAB PO DAILY Simvastatin (Zocor), 20 MG PO HS Tiotropium [place] Monohydrate (Spiriva Respimat), 2 PUFFS INH DAILY Scheduled PRN Acetamin/Butalbital/Caffeine (Fioricet), 1 TAB PO Q4 PRN for Headache Acetaminophen (Tylenol Arthritis Ext Rel), 650 MG PO Q4H PRN for Pain Arformoterol Tartrate (Brovana), 15 MCG INH BID PRN for SOB/Wheezing Baclofen (Lioresal), 10 MG PO TID PRN for Muscle Spasms Chlorphenir/Hydrocod Polistir (Tussionex), 5 ML PO Q6 PRN for Cough Diclofenac Sod (Voltaren 1% Top Gel), 2 GM TOP QID PRN for Pain Ipratropium-Albuterol (Combivent Respimat), 1 PUFFS INH QID PRN for SOB/Wheezing Ipratropium-Albuterol (Duoneb), 1 TREATMENT INH Q4H PRN for SOB/Wheezing Linaclotide (Linzess), 1 CAP PO QAM PRN for GI Upset Ropinirole (Requip), 0.25-0.5 MG PO HS PRN for RESTLESS LEGS Tramadol HCl (Tramadol HCl), 50 MG PO Q4-6HRS PRN for Pain Review of Systems The patient denies vision change, hearing change, sore throat, fevers, chills, sweats, nausea, vomiting, abdominal pain, pelvic pain, blood in urine or stool, dysuria, urinary frequency or urgency, memory loss, rash, abnormal bruising or bleeding, imbalance, focal weakness, numbness or tingling in arms or legs, night sweats, or allergy symptoms. The review of systems is otherwise negative other than for that already noted above, and at least 10 systems have been reviewed. Physical Exam Vital Signs Date Time Temp Pulse Resp B/P Pulse Ox O2 Delivery O2 Flow Rate FiO2 10/21/16 19:55 98 Room Air 10/21/16 19:41 37.2 90 24 130/77 92 10/21/16 19:02 84 18 95 Room Air 10/21/16 16:00 98 Room Air 10/21/16 14:37 36.6 87 20 172/89 98 Room Air The patient is awake, alert and oriented 3, normocephalic and atraumatic, lying in bed and in no acute distress. HEENT--PERRL, EOMI, mucous membranes and oropharynx dry. Neck--supple, no JVD or bruits, thyroid normal, trachea midline, no adenopathy. Heart--normal S1 and S2, no extra beats, no murmurs, rubs or gallops. Lungs--few crackles at the bases bilaterally, no respiratory distress, no accessory muscle use. Abdomen--normal bowel sounds and soft, nontender and nondistended, no hernias or masses, no organomegaly. Extremities--no cyanosis, clubbing. Trace bilateral pitting Edema. There are good distal pulses b/l. Dermatologic--normal skin turgor, normal color, warm and dry, no abnormal lymph nodes, no rash. Neurologic--cranial nerves II through XII grossly intact, motor and sensory examination normal. Rheumatologic--normal range of motion, nontender, muscles and joints. Psychiatric-- mildly depressed Diagnostics Laboratory Results Results Past 24 Hours Test 10/21/16 15:30 10/21/16 22:12 Range/Units Total Creatine Kinase 74 26-192 U/L Creatine Kinase MB 3.1 0.5-3.6 ng/ml Creatine Kinase MB Ratio 4.2 0-3.0 Troponin I < 0.015 0-0.045 ng/ml Diagnostic Radiology Patient Name: DONELL SHANE Unit Number: [id number] Dictated: 10/21/161521 Transcribed: 10/21/16 152 ARG Printed Date/Time: [~ rep prt dt]/[~ rep prt tm] [~ rep ct labl] - [~ rep ct ivnm] [facility] [place] [address] Dictated: 10/21/161521 Transcribed: 10/21/16 152 ARG Printed Date/Time: [~ rep prt dt]/[~ rep prt tm] [~ rep ct labl] - [~ rep ct ivnm] CHEST ONE VIEW PORTABLE CLINICAL HISTORY: Is a breath, dyspnea on exertion. COMPARISON STUDY: 10/07/2016 FINDINGS: There are postsurgical changes present within the lumbar spine cervical spine. The heart is the upper limits of normal in size. There is a small right pleural effusion. There are bibasal airspace opacities likely atelectatic.[ IMPRESSION: 1. Persistent right pleural effusion 2. Bibasilar airspace opacities likely atelectatic 3. No evidence of failure Electronically signed by: Edenilson Barrett M.D. 10/21/2016 3:23 PM Dictated Date/Time: 10/21/2016 3:22 PM The status of this report is Signed. Draft = Not yet reviewed or approved by Radiologist. Signed = Reviewed and approved by Radiologist. <AttendingPhy>Jose Sheikh M.D.</AttendingPhy> <FamilyPhy>Jaun See PA-C</FamilyPhy> <PrimaryPhy>Michael De Souza M.D.</PrimaryPhy> < UnitNumber>[id number]</UnitNumber> <VisitNumber>[id number]</VisitNumber> < PatientName>DONELL SHANE</PatientName> <DateOfBirth>1935</DateOfBirth> <Location>[facility]</Location> <ServiceDate></ServiceDate> <MNE>ESINDI</MNE> < OrderingPhy>Jose Sheikh M.D.</OrderingPhy> <OrderingPhyMNE>f rep ord dr downey</OrderingPhyMNE> <DictatingPhyMNE>f rep dict dr downey</DictatingPhyMNE> < CCListMNE>f rep ct nasreen</CCListMNE> <AdmittingPhyMNE>f pt admit dr downey</ AdmittingPhyMNE> <AttendingPhyMNE>f pt attend dr downey</AttendingPhyMNE> <ConsultingPhyMNE>f pt consult dr downey</ConsultingPhyMNE> <FamilyPhyMNE>f pt fam dr downey</FamilyPhyMNE> <OtherPhyMNE>f pt other dr downey</OtherPhyMNE> < PrimaryPhyMNE>f pt prim care dr downey</PrimaryPhyMNE> <ReferringPhyMNE>f pt referring dr downey</ReferringPhyMNE> EKG EKG shows normal sinus rhythm at 83, with T-wave inversion in lead aVL greater than 1, but no change compared to EKG of 10/20/2016 Impression Assessment and Plan Shortness of breath/chronic right pleural effusion/30 pound weight gain since August/worsening symptoms with attempts at prednisone tapering--the patient will be admitted to the telemetry unit, for serial cardiac enzymes, cardiac rhythm monitoring, and a 2-D echocardiogram with Dopplers. We'll place her on Xopenex with Atrovent nebulizer to use every 6 hours while awake and every 2 hours when necessary, and Pulmicort Respules 0.5 mg inhaled twice a day. Suspect that she is not able to take a deep enough breath to get her inhalers into the base of her lungs were she has persistent atelectasis. We'll hold Spiriva, Brovana, Combivent Respimat, and duo nebs. 30 pound weight gain--likely secondary to chronic steroid use, but has had a difficult time tapering due to shortness of breath. She may benefit from a trial of metformin to help with weight loss upon discharge Hypothyroidism continue levothyroxine sodium 88 g by mouth daily. GERD/gastroparesis--change omeprazole 40 mg by mouth twice a day to pantoprazole 40 mg by mouth twice a day. For now hold Linzess. Hypercholesterolemia--continue simvastatin 20 mg by mouth at bedtime. Orthostatic hypotension--continue admitted during by mouth 3 times a day. Vitamin B-12 deficiency continue 1000 g by mouth daily supplement. Depression/anxiety--continue citalopram 20 mg by mouth daily. She may benefit from a change to Cymbalta 30 mg by mouth daily in the future. Continue gabapentin 300 mg by mouth daily Level of Care Telemetry Advanced Directives Existing Advance Directive: No Existing Living Will: Yes Existing Power of Party Plan Sales Unit Advisor: Yes Resuscitation Status FULL RESUSCITATION VTE Prophylaxis VTE Risk Assessment Done? Y/N: Yes Risk Level: Moderate Given or contraindicated: SCD's
[2016-10-21 23:13] VITALS: BP 170/88; PULSE 83; TEMP 36.6; O2SAT 95
[2016-10-22] VITALS (10 sets, daily range): BP systolic 136–170; BP diastolic 59–93; PULSE 74–111; TEMP 36.5–37.4; O2SAT 92–97
[2016-10-22] MEDS: IPRATROPIUM BROMIDE NEB SOLN 0.02% 2.5 ML VIAL INH SCH ×4 (02:05→18:46)
[2016-10-22] MEDS: LEVALBUTEROL 1.25MG/0.5ML NEB INH SCH ×4 (02:05→18:46)
[2016-10-22] MEDS: LEVOTHYROXINE 88 MCG TAB PO SCH (06:13)
[2016-10-22 07:09] LABS: BASO % 0.4 %; BASO ABS # 0.05 K/uL (0-0.2); COMPLETE YES; EOS % 0.4 %; IG% 2.1 %; LYMPH ABS # 2.14 K/uL (1.2-3.4); MEAN CELL VOLUME 91.7 fL (80-100); MEAN CORPUSCULAR HEMOGLOBIN 28.8 pg (25-34); MEAN CORPUSCULAR HGB CONC 31.4 g/dl (32-36); MEAN PLATELET VOLUME 9.6 fL (7.4-10.4); MONO % 6.5 %; NEUT % 72.6 %; PLATELET COUNT 272 K/uL (130-400); RED BLOOD COUNT 4.58 M/uL (4.2-5.4); WHITE BLOOD COUNT 11.87 K/uL (4.8-10.8)
[2016-10-22 07:18] LABS: INR 0.9 (0.9-1.1)
[2016-10-22] MEDS: BUDESONIDE 0.5 MG/2 ML VIAL (PULMICORT) INH SCH ×2 (07:19→18:46)
[2016-10-22 07:39] LABS: ALT/SGPT 38 U/L (12-78); AST/SGOT 19 U/L (15-37); BLOOD UREA NITROGEN 22 mg/dl (7-18); BUN/CREATININE RATIO 20.4 (10-20); CALCIUM 8.5 mg/dl (8.5-10.1); CARBON DIOXIDE 28 mmol/L (21-32); CHLORIDE 102 mmol/L (98-107); GLUCOSE 87 mg/dl (70-99); MAGNESIUM 2.2 mg/dl (1.8-2.4); POTASSIUM 4.1 mmol/L (3.5-5.1); SODIUM 141 mmol/L (136-145)
[2016-10-22 07:44] LABS: ALKALINE PHOSPHATASE 77 U/L (45-117); CKMB/CK RATIO 4.5 (0-3.0)
[2016-10-22] MEDS: NYSTATIN POWDER 15GM BTL EXT SCH ×2 (08:02→21:24)
[2016-10-22] MEDS: CITALOPRAM 20 MG TAB PO SCH (08:03)
[2016-10-22] MEDS: PrednisoLONE ACET 1% OP SUSP 5 ML BTL OPL SCH ×4 (08:03→21:24)
[2016-10-22] MEDS: CHOLECALCIFEROL 1000 INTER.UNIT TAB PO SCH (08:03)
[2016-10-22] MEDS: PANTOprazole SOD 40 MG TAB PO SCH ×2 (08:03→21:32)
[2016-10-22] MEDS: CYANOCOBALAMIN 500 MCG TAB (VIT B-12) PO SCH (08:03)
[2016-10-22] MEDS: KETOROLAC 0.5% OP SOLN 3 ML BTL OPL SCH ×4 (08:03→21:25)
[2016-10-22] MEDS: POTASSIUM CHLORIDE 20 MEQ TABCR PO SCH ×2 (08:38→21:31)
[2016-10-22] MEDS: MIDODRINE 2.5 MG TAB PO SCH ×3 (08:38→17:48)
[2016-10-22] MEDS: LIDODERM (LIDOCAINE) PATCH 5% TD SCH (08:38)
[2016-10-22] MEDS ORDERED: RIBOFLAVIN 100 MG TAB PO SCH ×2 (09:00)
--- NOTE | 2016-10-22 10:38 | Progress Note ---
Subjective Date of Service: Oct 22, 2016. Subjective Pt evaluation today including: conversation w/ patient, physical exam, chart review, lab review, review of studies, conversation w/ art sales consultant, review of inpatient medication list Sitting up in chair, feeling more tired, and has difficulty breathing Report has been gaining weight, Problem List Medical Problems: (1) Cervical strain Status: Acute (2) Fall Status: Acute (3) Head injury Status: Acute (4) Head injury Status: Acute (5) Hip pain Status: Acute (6) Hypoxia Status: Acute (7) Pneumonia Status: Acute (8) Syncope Status: Acute (9) Traumatic compression fracture of third thoracic vertebra Status: Acute Review of Systems Constitutional: + fatigue, + weight loss, No chills, No fever, No problem reported, No sweats, No weakness Eyes: No diplopia, No discharge, No eye pain, No redness, No worsening of vision ENT: No dental problems, No hearing loss, No nasal symptoms, No sore throat, No tinnitus, No trouble swallowing, No unusual epistaxis Respiratory: + shortness of breath, No cough, No dyspnea at rest, No dyspnea on exertion, No hemoptysis, No sputum, No wheezing Cardiac: No PND, No chest pain, No claudication, No edema, No orthopnea, No palpitations Abdomen: No constipation, No diarrhea, No nausea, No pain, No vomiting Musculoskeletal: No calf pain, No joint pain, No muscle pain, No swelling Female : No abnormal vaginal bleeding, No dysuria, No hematuria, No incontinence, No urinary frequency, No vaginal discharge Neurologic: No balance problems, No memory loss, No numbness/tingling, No paralysis, No vertigo, No weakness Psychiatric: No anhedonism, No anxiety, No depression symptoms, No insomnia, No substance abuse Heme: No abnormal bleeding/bruising, No clotting problems, No night sweats, No swollen lymph nodes Endo: No excessive thirst, No excessive urination, No fatigue Skin: No bleeding, No color change, No itch, No new/changing skin lesions, No rash Objective Vital Signs Date Time Temp Pulse Resp B/P Pulse Ox O2 Delivery O2 Flow Rate FiO2 10/22/16 08:30 Room Air 10/22/16 07:19 92 18 94 Room Air 10/22/16 07:13 36.9 98 20 170/93 94 10/22/16 04:21 36.5 74 16 149/82 96 Room Air 10/22/16 04:00 Room Air 10/22/16 02:05 93 18 94 Room Air 10/22/16 00:00 Room Air 10/21/16 23:13 36.6 83 20 170/88 95 Room Air 10/21/16 19:55 98 Room Air 10/21/16 19:41 37.2 90 24 130/77 92 10/21/16 19:02 84 18 95 Room Air 10/21/16 16:00 98 Room Air 10/21/16 14:37 36.6 87 20 172/89 98 Room Air Physical Exam General Appearance: WD/WN, no apparent distress, + obese Eyes: normal inspection, PERRL, EOMI, sclerae normal ENT: normal ENT inspection, hearing grossly normal, pharynx normal Neck: supple, no adenopathy, thyroid normal, no JVD, no carotid bruits, trachea midline Respiratory/Chest: chest non-tender, normal breath sounds, no respiratory distress, no accessory muscle use, + decreased breath sounds, + crackles (in bilateral lower lung) Cardiovascular: regular rate, rhythm, no edema, no gallop, no JVD, no murmur Abdomen: normal bowel sounds, non tender, soft, no organomegaly, no pulsatile mass Extremities: normal range of motion, non-tender, normal inspection, no pedal edema, no calf tenderness, normal capillary refill, pelvis stable Neurologic/Psychiatric: regional sales director II-XII nml as tested, no motor/sensory deficits, alert, normal mood/affect, oriented x 3 Skin: normal color, warm/dry, no rash Lymphatic: no adenopathy Laboratory Results Last 24 Hours Test 10/21/16 15:30 10/21/16 22:12 10/22/16 06:51 Total Creatine Kinase 74 U/L 61 U/L 55 U/L Creatine Kinase MB 3.1 ng/ml 3.0 ng/ml 2.5 ng/ml Creatine Kinase MB Ratio 4.2 4.9 4.5 Troponin I < 0.015 ng/ml < 0.015 ng/ml < 0.015 ng/ml White Blood Count 11.87 K/uL Red Blood Count 4.58 M/uL Hemoglobin 13.2 g/dL Hematocrit 42.0 % Mean Corpuscular Volume 91.7 fL Mean Corpuscular Hemoglobin 28.8 pg Mean Corpuscular Hemoglobin Concent 31.4 g/dl Platelet Count 272 K/uL Mean Platelet Volume 9.6 fL Neutrophils (%) (Auto) 72.6 % Lymphocytes (%) (Auto) 18.0 % Monocytes (%) (Auto) 6.5 % Eosinophils (%) (Auto) 0.4 % Basophils (%) (Auto) 0.4 % Neutrophils # (Auto) 8.61 K/uL Lymphocytes # (Auto) 2.14 K/uL Monocytes # (Auto) 0.77 K/uL Eosinophils # (Auto) 0.05 K/uL Basophils # (Auto) 0.05 K/uL RDW Standard Deviation 58.7 fL RDW Coefficient of Variation 17.4 % Immature Granulocyte % (Auto) 2.1 % Immature Granulocyte # (Auto) 0.25 K/uL Prothrombin Time 10.0 SECONDS Prothromb Time International Ratio 0.9 Activated Partial Thromboplast Time 25.7 SECONDS Partial Thromboplastin Ratio 1.0 Sodium Level 141 mmol/L Potassium Level 4.1 mmol/L Chloride Level 102 mmol/L Carbon Dioxide Level 28 mmol/L Anion Gap 11.0 mmol/L Blood Urea Nitrogen 22 mg/dl Creatinine 1.10 mg/dl Est Creatinine Clear Calc Drug Dose 43.6 ml/min Estimated GFR () 55.3 Estimated GFR (Non- 47.7 BUN/Creatinine Ratio 20.4 Random Glucose 87 mg/dl Calcium Level 8.5 mg/dl Magnesium Level 2.2 mg/dl Total Bilirubin 0.8 mg/dl Direct Bilirubin 0.1 mg/dl Aspartate Amino Transf (AST/SGOT) 19 U/L Alanine Aminotransferase (ALT/SGPT) 38 U/L Alkaline Phosphatase 77 U/L Total Protein 7.1 gm/dl Albumin 3.7 gm/dl Assessment and Plan 81-year-old admitted because of Shortness of breath/chronic right pleural effusion/30 pound weight gain on 10/21/2016 Shortness of breath/chronic right pleural effusion/30 pound weight gain : I feel it is multiple medical conditions caused the problem, Stable, no significant improvement. Such as obesity, acute on chronic diastolic CHF, fluid overload fluid/ retention from steroid using acute on chronic diastolic CHF, which is supported by weight gain, bilateral lower lung has crackles, echo shows diastolic as CHF CHF teaching, 2 g sodium diet, fluid restriction to 1.8 L daily Lasix IV, optimal should be on beta richy and VONNIE inhibitor, however patient has orthostatic hypotension, possible not able to tolerate, she is Midodrine now Possible COPD with prednisone tapering- Continue Xopenex with Atrovent nebulizer to use every 6 hours while awake and every 2 hours when necessary, Continue Pulmicort Respules 0.5 mg inhaled twice a day, etc 30 pound weight gain--likely secondary to chronic steroid use, Hypothyroidism with a recent a minimal decreased TSH but T4 was normal continue levothyroxine sodium 88 g by mouth daily. GERD/gastroparesis--continue current medication Hypercholesterolemia--continue simvastatin 20 mg by mouth at bedtime. Orthostatic hypotension--continue admitted during by mouth 3 times a day. Vitamin B-12 deficiency continue 1000 g by mouth daily supplement. Depression/anxiety--continue citalopram 20 mg by mouth daily. Although bed to chair, PT OT, addiction social worker for discharge plan Continued [facility] stay due to: multiple IV medications needed Discharge planning: uncertain
[2016-10-22] MEDS: GABAPENTIN 300 MG CAP PO SCH (10:59)
[2016-10-22] MEDS ORDERED: FUROSEMIDE INJ 40 MG in SYRINGE 0 ML IV SCH ×2 (11:00→21:00)
[2016-10-22] MEDS: HEPARIN SOD 5000 UNIT/0.5 ML CARP SQ SCH ×2 (13:13→21:30)
[2016-10-22] MEDS: [UNRECOGNIZED DRUG - OTHER] SCH (15:32)
[2016-10-22] MEDS ORDERED: [UNRECOGNIZED DRUG - OTHER] SCH (16:00)
--- NOTE | 2016-10-22 18:37 | Progress Note ---
Progress Note I am taking over management of this patient from Dr. Nole at family and pt's request. Pt seen and examined, reviewed records and spoke with pt and daughter. SOB with worsening abdominal distension and bloating with 30+ lbs weight gain in the last 1-2 months since starting chronic high dose prednisone for COPD. Was being treated with diuresis but not much improvement. Recent CTA chest neg for PE but showed atelectasis vs infiltrate at bases in ER 2 nights ago, took one dose Levaquin and then was held on admission yesterday. Unclear if has true PNA. Afebrile here. Pro BNP was normal on 10/20, not clear that she has acute CHF. Not hypoxic NAD, AAOx3, not on O2, morbidly obese Lungs with mild crackles at bases, single exp wheeze SONJA field RRR no mgr Abd +BS, soft ND, mild TTP w/o guarding, no HSM Ext no edema 81 yo female with COPD, chronic dCHF, obesity, chronic back and joint pain, here with worsening SOB, 30 lbs weight gain in last 6 weeks and abdominal distension. Combination of weight gain likely from chronic high dose steroids, maybe mild volume overload, and with COPD exacerbation. Not hypoxic, more subjective symptoms. Needs weight loss. -added daily prednisone back on which she was not ordered -Consult Pulm to see her tomorrow -not clear that she has PNA, no abx for now -switch IV lasix back to po for tomorrow -check TSH as was slightly low 1 mo ago -check Abd US for those complaints Proph-heparin Dispo-FULL CODE
[2016-10-22] MEDS: BOOST VANILLA PO SCH ×2 (21:23)
[2016-10-22] MEDS: SIMVASTATIN 20 MG TAB PO SCH (21:31)
[2016-10-23] VITALS (11 sets, daily range): BP systolic 125–176; BP diastolic 79–106; PULSE 78–108; TEMP 36.8–37.2; O2SAT 92–97
[2016-10-23] MEDS: IPRATROPIUM BROMIDE NEB SOLN 0.02% 2.5 ML VIAL INH SCH ×4 (02:02→19:00)
[2016-10-23] MEDS: LEVALBUTEROL 1.25MG/0.5ML NEB INH SCH ×4 (02:03→19:00)
[2016-10-23] MEDS: LEVOTHYROXINE 88 MCG TAB PO SCH (05:22)
[2016-10-23] MEDS: HEPARIN SOD 5000 UNIT/0.5 ML CARP SQ SCH ×3 (05:23→21:37)
[2016-10-23 06:45] LABS: BASO % 0.1 %; BASO ABS # 0.01 K/uL (0-0.2); COMPLETE YES; HEMATOCRIT 40.4 % (37-47); IG% 1.5 %; LYMPH % 11.2 %; LYMPH ABS # 1.13 K/uL (1.2-3.4); MEAN CELL VOLUME 89.6 fL (80-100); MEAN CORPUSCULAR HGB CONC 32.4 g/dl (32-36); MEAN PLATELET VOLUME 9.9 fL (7.4-10.4); MONO % 5.9 %; NEUT % 81.3 %; PLATELET COUNT 281 K/uL (130-400); RED BLOOD COUNT 4.51 M/uL (4.2-5.4); WHITE BLOOD COUNT 10.05 K/uL (4.8-10.8)
[2016-10-23 06:56] LABS: PARTIAL THROMBOPLASTIN RATIO 1.1; PROTHROMBIN TIME (PATIENT) 10.4 SECONDS (9.0-12.0)
--- NOTE | 2016-10-23 06:59 | DIAGNOSTIC IMAGING REPORT ---
ABDOMINAL ULTRASOUND COMPLETE HISTORY: Pain. Nausea. abdominal pain, distension. COMPARISON: None. FINDINGS: Pancreas: The pancreas demonstrates a normal echotexture. Liver: Mild fatty infiltration Gallbladder: No gallbladder wall thickening. No gallstones. CBD: 5 mm Kidneys: No hydronephrosis. Spleen: Normal in size. Aorta: Normal in caliber. IVC: Patent. IMPRESSION: Mild fatty infiltration of liver. Otherwise negative study Electronically signed by: Vignesh Kim M.D. 10/23/2016 6:58 AM Dictated Date/Time: 10/23/2016 6:57 AM
[2016-10-23] MEDS: BUDESONIDE 0.5 MG/2 ML VIAL (PULMICORT) INH SCH ×2 (07:08→19:00)
[2016-10-23 07:42] LABS: BUN/CREATININE RATIO 22.8 (10-20); CALCIUM 8.8 mg/dl (8.5-10.1); CREATININE 0.97 mg/dl (0.60-1.20); THYROID STIMULATING HORMONE 1.36 uIu/ml (0.300-4.500)
[2016-10-23] MEDS: [UNRECOGNIZED DRUG - OTHER] SCH ×4 (07:55→23:37)
[2016-10-23] MEDS: MIDODRINE 2.5 MG TAB PO SCH ×3 (07:56→16:07)
[2016-10-23] MEDS: PrednisoLONE ACET 1% OP SUSP 5 ML BTL OPL SCH ×4 (08:02→20:16)
[2016-10-23] MEDS: NYSTATIN POWDER 15GM BTL EXT SCH ×2 (08:02→20:16)
[2016-10-23] MEDS: BOOST VANILLA PO SCH ×4 (08:02→20:16)
[2016-10-23] MEDS: POTASSIUM CHLORIDE 20 MEQ TABCR PO SCH ×2 (08:03→20:20)
[2016-10-23] MEDS: KETOROLAC 0.5% OP SOLN 3 ML BTL OPL SCH ×4 (08:03→20:16)
[2016-10-23] MEDS: CHOLECALCIFEROL 1000 INTER.UNIT TAB PO SCH (08:03)
[2016-10-23] MEDS: PANTOprazole SOD 40 MG TAB PO SCH ×2 (08:03→20:21)
[2016-10-23] MEDS: CYANOCOBALAMIN 500 MCG TAB (VIT B-12) PO SCH (08:03)
[2016-10-23] MEDS: LIDODERM (LIDOCAINE) PATCH 5% TD SCH (08:04)
[2016-10-23] MEDS: CITALOPRAM 20 MG TAB PO SCH (08:04)
[2016-10-23] MEDS ORDERED: FUROSEMIDE 20 MG TAB PO SCH (09:00)
[2016-10-23 10:11] LABS: ARTERIAL BLD GAS O2 SATURATION 96.1 % (90-95); ARTERIAL BLOOD GAS BASE EXCESS 1.2 mEq/L (-9-1.8); ARTERIAL BLOOD GAS HCO3 23 mmol/L (19-24); ARTERIAL BLOOD GAS PO2 77 mm/Hg (80-95)
[2016-10-23 10:18] LABS: ALLEN TEST POS (POS); ARTERIAL BLOOD GAS pH 7.54 (7.35-7.45); O2 ADMINISTRATION ROOM AIR
[2016-10-23] MEDS: GABAPENTIN 300 MG CAP PO SCH (12:16)
--- NOTE | 2016-10-23 12:24 | Pulmonary Consultation ---
History General Date of Service: Oct 23, 2016. Stated Complaint: Sob,Uhf, HPI The patient is a 81 year old female who presents to [facility] with complaints of Sob,Uhf,. The patient's primary care provider is Michael De Souza M.D.. 81y/o female admitted to [facility] after 3 weeks of progressive SOB. In August of 2016 the patient underwent a right curtis-diaphragmatic plication for a history of chronic paralysis. Her surgery was complicated two days later with associated bilateral pneumonia. She also notes a 30lb weight gain (12Kg via the records) since the surgery with associated increased abdominal girth and lower extremity edema. Patient notes 1-2 weeks worth of good respiratory response status post plication but since that time has had severe dyspnea at rest with increased work of breathing. She does not note fever, chills, pleurisy, chest pain, classic cardiac chest pain, lower extremity swelling over this time Work-Up: 1)EKG (10/21/16) NSR, no acute signs of ischemia 2)Abdomenal US results pending 3)WBC: 12K(Neutro#: 8.61) 4)Blood: preliminary no growth 5)CXR (10/21/16) bilateral costo-phrenic blunting with infiltrate vs. ateltectasis 6)Abdominal US (10/23/16) mild YATES otherwise WNL 7)Thoracic CTA (10/20/16) compared to 10/17/16 a.No PE b.Small rt sided pleural effusion with infiltrates vs. ateltectasis c.LLL 6mm pulmonary nodule d.Lingular infiltrate e.Vascular congestion f.RLL infiltrate 8) ABG a. 10/23/16 7.52///23 (RA) A-a Gradient:33 (expected: 19) b. 08/27/16 7.43/46/75/30 (1.5L) A-a Gradient:48 c. 09/22/15 7.42/45//28 (RA) A-a Gradient:55 9) Cardiac Echo (10/21/16) a. LV: mild LVH, EF=65-70% b. RV: function WNL, TAPSE >1.5cm c. Lipomatous hypertrophy of the inter-atrial septum is noted d. IVC sniff: WNL Treatment: 1) Prednisone 30mg QD 2) Midodrine 2.5mg TID 3) Levothyroxine 4) Xopenex/Atrovent Neb Q6hr 5) Budseonide 0.5mg BID 6) Xopenex 0.5ml ---increase to 1.25 (Q2 prn SOB) Poor spirometry less than 6 seconds Date: 09/17/2016 PRE POST % CHANGE FEV1/FVC: 81 FEV1: 1.51/85% 1.55/87% 3 FVC: 1.85/78% 1.86/78% 0 25-27%: 110% T.24/112% VC: 1.83/77% RV: 2.42/112% FRC: DLCO: 43% DLCO/VA: 65% Review of Systems Constitutional: reports: malaise, weakness, weight gain Eyes: reports: no symptoms ENT: reports: no symptoms Cardiovascular: reports: as stated in HPI Respiratory: reports: as stated in HPI Gastrointestinal: reports: no symptoms Genitourinary - Female: reports: no symptoms Musculoskeletal: reports: no symptoms Integumentary: reports: no symptoms Neurologic: reports: no symptoms Psychiatric: reports: no symptoms Endocrine: no symptoms Hematologic / Lymphatic: no symptoms Allergic / Immunologic: no symptoms Past Medical History Past Medical History: 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 2.Lt Rib Fx s/p fall 3.Mild Asthma 4.Sever DJD 5.GERD 6.CFI 7.Fibromyalgia 8.Hx MRSA Cellulitis 9.OA 10.Chronic Rhinitis 11.Hyperlipidemia 12.Benign colonic polyps 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 14.Vaginal wall prolapse with cystocele 15.Thyroid CA 16.Childbirth x3 17.Concussion fall 2016 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 Past Medical History: anxiety, asthma, depression, hypothyroidism, osteoarthritis, urinary tract infection, other Past Surgical History: 1.Cervical and lumbar arthrodesis 2.Hysterectomy 3.Knee arthroplasty 4.Right and Left shoulder replacements 5.Subtotal thyroidectomy-Ca 6.Tonsil/adenoidectomy 7.Vaginal sling 8.Adrenalectomy 9.Appendectomy 10.Lt cataract surgery 11.Thoracolumbar surgery 12.Harpreet-Fundoplication 13.Right Curtis-diaphragmatic plication 08/26/16 14.Cervical fusion Past Surgical History: adenoidectomy, appendectomy, hysterectomy, orthopedic surgery, spinal surgery, thyroidectomy, TKR, tonsillectomy Family History Diabetes mellitus FH: cancer FH: gallbladder disease FH: heart disease FH: lung disease Hypertension Kidney disease or stones Social History Hx Tobacco Use In Past Year?: No Smoking Status: Never Smoker Alcohol: no current use Drug Use: none Marital status: single Housing status: lives with family Occupational Status: retired Immunizations History of Influenza Vaccine: N/A Influenza Vaccine Date: Jun 18, 2012 History of Tetanus Vaccine?: Yes Tetanus Immunization Date: Mar 18, 2004 History of Pneumococcal: Yes Pneumococcal Date: May 31, 2010 History of Hepatitis B Vaccine: No History of MDRO History of MDRO: Yes Type of MDRO: MRSA Allergies Coded Allergies: Pneumococcal Vaccine (Verified Allergy, Severe, SHORTNESS OF BREATH, ) Erythromycin (Verified Allergy, Mild, RASH, 08/26/16) Adhesives (Verified Allergy, Unknown, TAPE-REDNESS, BLISTERS, 08/26/16) Metronidazole (Verified Allergy, Unknown, skin rash, 08/26/16) allergic to generic form Phenazopyridine (Verified Allergy, Unknown, abdominal pain/rash, 08/26/16) Polymyxin B (Verified Allergy, Unknown, 08/26/16) Salicylates (Verified Allergy, Unknown, pt states rash with ASA 325 but not ASA 81mg, 08/26/16) Sulfa Antibiotics (Verified Allergy, Unknown, "SULFA DRUGS" = RASH, ) Tetracycline (Verified Allergy, Unknown, RASH, 08/26/16) Morphine (Verified Adverse Reaction, Intermediate, urinary retention - oral morphine only, 08/26/16) Diltiazem (Verified Adverse Reaction, Mild, FLUID RETENTION, 08/26/16) Metoclopramide (Verified Adverse Reaction, Mild, TREMORS, 08/26/16) Bacitracin (Verified Adverse Reaction, Unknown, "MAKES IT WORSE"-OK IF NOT OTC MEDICATION, 08/26/16) OKAY IF NOT OVER THE COUNTER MEDICATION Current Medications Reported Home Medications Medications Dose Route/Sig Max Daily Dose Days Date Category Dose Instructions Levaquin (Levofloxacin) 500 Mg Tab 500 Mg PO DAILY 7 10/20/16 Rx Tussionex (Chlorphenir/Hydrocodone Polistirex) Liqcr 5 Ml PO Q6 PRN 10 10/20/16 Reported Lioresal (Baclofen) 10 Mg Tab 10 Mg PO TID PRN 10/20/16 Reported Vitamin D-1000 (Cholecalciferol) 1,000 Unit Tab 1,000 Units PO DAILY 10/20/16 Reported Tramadol HCl 50 Mg Tab 50 Mg PO Q4-6HRS PRN 10/20/16 Reported Prednisone 10 Mg Tab 10 Mg PO DAILY 10/20/16 Reported Prednisone 5 Mg Tab 5 Mg PO DAILY 10/20/16 Reported TAKE WITH A 10 MG TAB Potassium Chloride Er (Potassium Chloride) 10 Meq Cap 20 Meq PO BID 10/20/16 Reported Ketorolac Tromethamine (Ketorolac Tromethamine (Ophth)) 0.5 % Renetta 1 Drop OPL QID 10/20/16 Reported Duoneb (Ipratropium-Albuterol) 3 Ml Nebu 1 Treatment INH Q4H PRN 10/20/16 Reported Furosemide 20 Mg Tab 20 Mg PO UD 10/20/16 Reported [facility] TOLD DAUGHTER TO GIVE 1 TAB DAILY OR QOD PT CAN TOLERATE. Fioricet (Acetaminophen/Butalbital/Caffeine) 1 Ea Tab 1 Tab PO Q4 PRN 10/20/16 Reported Combivent Respimat (Ipratropium-Albuterol) 1 Aer Aer 1 Puffs INH QID PRN 10/20/16 Reported Brovana (Arformoterol Tartrate) 15 Mcg/2 Ml Neb 15 Mcg INH BID PRN 10/20/16 Reported Gabapentin 300 Mg Cap 300 Mg PO DAILY@1200 30 07/10/16 Rx Systane (Polyethylene Glycol-Propylene) 1 Renetta Renetta 1 Drops OPR QID 06/30/16 Reported Pred Forte 1% Oph (Prednisolone Acetate (Ophth)) 1 % Nicole 1 Drops OPL QID 06/30/16 Reported Levothyroxine Sodium 88 Mcg Tab 88 Mcg PO DAILY 90 05/09/16 Reported Requip (Ropinirole HCl) 0.25 Mg Tab 0.25-0.5 Mg PO HS PRN 04/24/16 Reported Tylenol Arthritis Ext Rel (Acetaminophen) 650 Mg Cplt 650 Mg PO Q4H PRN 02/26/16 Reported Spiriva Respimat (Tiotropium [place] Monohydrate) 2.5 Mcg/Act Spr 2 Puffs INH DAILY 02/26/16 Reported Calcium Carbonate 1,250 Mg Tab 1 Tab PO HS 02/26/16 Reported Prilosec (Omeprazole) 40 Mg Capcr 40 Mg PO BID 02/26/16 Reported Midodrine Hcl 2.5 Mg Tab 1 Tab PO TID 02/26/16 Reported Vitamin B-12 (Cyanocobalamin) 500 Mcg Tab 1,000 Mcg PO DAILY 12/20/15 Reported Citalopram Hydrobromide 20 Mg Tab 20 Mg PO DAILY 12/20/15 Reported Zocor (Simvastatin) 20 Mg Tab 20 Mg PO HS 12/20/15 Reported Lidoderm Patch 5% Patch (Lidocaine) 1 Patch Tdsy 1 Patch TOP DAILY 12/20/15 Reported ON 12 HOURS, OFF 12 HOURS Riboflavin 400 Mg Tab 1 Tab PO DAILY 12/01/15 Reported Kp Melatonin (Melatonin) 3 Mg Tab 1 Tab PO HS 12/01/15 Reported Linzess (Linaclotide) 290 Mcg Cap 1 Cap PO QAM PRN 10/27/15 Reported Voltaren 1% Top Gel (Diclofenac Sodium) Gel 2 Gm TOP QID PRN 09/19/15 Reported Nystop (Nystatin (Topical)) 100,000 Unit/Gm Pow 1 Appln TOP BID UD 09/19/15 Reported Physical Physical Exam Vital Signs: Date Time Temp Pulse Resp B/P Pulse Ox O2 Delivery O2 Flow Rate FiO2 10/23/16 11:56 36.9 78 16 154/81 93 Room Air 10/23/16 08:30 Room Air 10/23/16 07:15 36.8 93 20 171/90 94 Room Air 176/79 10/23/16 07:08 97 18 93 Room Air 10/23/16 04:37 36.9 105 19 168/106 95 Room Air 10/23/16 04:00 Room Air 10/23/16 02:03 98 16 94 Room Air 10/23/16 00:00 Room Air 10/22/16 23:19 36.9 101 18 164/84 94 Room Air 10/22/16 20:00 Room Air 10/22/16 18:59 36.7 105 22 136/81 95 Room Air 10/22/16 18:46 102 22 92 Room Air 10/22/16 16:30 Room Air 10/22/16 15:03 37.4 102 20 141/59 95 10/22/16 14:03 110 18 92 Room Air 10/22/16 12:30 Room Air General Appearance: uncomfortable Head: NORMOCEPHALIC, ATRAUMATIC Eyes: PERRLA, NO DISCHARGE, EOMI, SCLERAE NORMAL ENT: NORMAL EAR EXAM, NORMAL NASAL EXAM, NORMAL MOUTH EXAM, NORMAL THROAT EXAM , NORMAL DENTAL EXAM Neck: NORMAL RANGE OF MOTION, NO TENDERNESS, TRACHEA MIDLINE, NO STRIDOR Respiratory: other (mildly decreased breath sounds right lower lobe otherwise within normal limits) Abdomen: NON TENDER, NORMAL BOWEL SOUNDS, NO REBOUND, NO MASSES, NO GUARDING, NO ORGANOMEGALY Genitourinary - Female: EXTERNAL GENITALIA NORMAL Back: NORMAL INSPECTION, NO MIDLINE TENDERNESS, NO CVA TENDERNESS, NO PARAVERTEBRAL TTP Upper Extremities: NO EDEMA, NO DEFORMITY, NORMAL ROM Lower Extremities: NO EDEMA, NO DEFORMITY, NORMAL ROM Pulses: carotid (R) (2+), carotid (L) (2+), dorsalis pedis (R) (1+), dorsalis pedis (L) (1+) Neuro: ALERT, ORIENTED x 3, NORMAL MOTOR EXAM, NORMAL SENSATION, NORMAL CEREBELLAR EXAM Reflexes: biceps (R) (2+), bicpes (L) (2+), patellar (L) (2+), achilles (R) (2+ ) Babinski Testing: right (downgoing), left (downgoing) Psychiatric: depressed, anxious Diagnostics Labs Results Past 24 Hours Test 10/23/16 06:23 10/23/16 10:03 Range/Units White Blood Count 10.05 4.8-10.8 K/uL Red Blood Count 4.51 4.2-5.4 M/uL Hemoglobin 13.1 12.0-16.0 g/dL Hematocrit 40.4 37-47 % Mean Corpuscular Volume 89.6 80-100 fL Mean Corpuscular Hemoglobin 29.0 25-34 pg Mean Corpuscular Hemoglobin Concent 32.4 32-36 g/dl Platelet Count 281 130-400 K/uL Mean Platelet Volume 9.9 7.4-10.4 fL Neutrophils (%) (Auto) 81.3 % Lymphocytes (%) (Auto) 11.2 % Monocytes (%) (Auto) 5.9 % Eosinophils (%) (Auto) 0.0 % Basophils (%) (Auto) 0.1 % Neutrophils # (Auto) 8.17 1.4-6.5 K/uL Lymphocytes # (Auto) 1.13 1.2-3.4 K/uL Monocytes # (Auto) 0.59 0.11-0.59 K/uL Eosinophils # (Auto) 0.00 0-0.5 K/uL Basophils # (Auto) 0.01 0-0.2 K/uL RDW Standard Deviation 56.4 36.4-46.3 fL RDW Coefficient of Variation 17.2 11.5-14.5 % Immature Granulocyte % (Auto) 1.5 % Immature Granulocyte # (Auto) 0.15 0.00-0.02 K/uL Prothrombin Time 10.4 9.0-12.0 SECONDS Prothromb Time International Ratio 1.0 0.9-1.1 Activated Partial Thromboplast Time 28.1 21.0-31.0 SECONDS Partial Thromboplastin Ratio 1.1 Sodium Level 139 136-145 mmol/L Potassium Level 4.0 3.5-5.1 mmol/L Chloride Level 103 98-107 mmol/L Carbon Dioxide Level 24 21-32 mmol/L Anion Gap 12.0 3-11 mmol/L Blood Urea Nitrogen 22 7-18 mg/dl Creatinine 0.97 0.60-1.20 mg/dl Est Creatinine Clear Calc Drug Dose 48.7 ml/min Estimated GFR () 64.4 Estimated GFR (Non- 55.5 BUN/Creatinine Ratio 22.8 10-20 Random Glucose 148 70-99 mg/dl Calcium Level 8.8 8.5-10.1 mg/dl Magnesium Level 2.0 1.8-2.4 mg/dl Total Bilirubin 1.2 0.2-1 mg/dl Direct Bilirubin 0.2 0-0.2 mg/dl Aspartate Amino Transf (AST/SGOT) 15 15-37 U/L Alanine Aminotransferase (ALT/SGPT) 30 12-78 U/L Alkaline Phosphatase 76 45-117 U/L Total Protein 7.3 6.4-8.2 gm/dl Albumin 3.6 3.4-5.0 gm/dl Thyroid Stimulating Hormone (TSH) 1.360 0.300-4.500 uIu/ml Free Thyroxine 1.01 0.80-1.60 ng/dl Arterial Blood pH 7.54 7.35-7.45 Arterial Blood Partial Pressure CO2 27 35-46 mmHg Arterial Blood Partial Pressure O2 77 80-95 mm/Hg Arterial Blood HCO3 23 19-24 mmol/L Arterial Blood Oxygen Saturation 96.1 90-95 % Arterial Blood Base Excess 1.2 -9-1.8 mEq/L Arterial Blood Gas Delivery ROOM AIR John Test POS POS Diagnostic Radiology 1)CXR (10/21/16) bilateral costo-phrenic blunting with infiltrate vs. ateltectasis 2)Abdominal US (10/23/16) mild YATES otherwise WNL 3)Thoracic CTA (10/20/16) compared to 10/17/16 a.No PE b.Small rt sided pleural effusion with infiltrates vs. ateltectasis c.LLL 6mm pulmonary nodule d.Lingular infiltrate e.Vascular congestion f.RLL infiltrate EKG EKG (10/21/16) NSR, no acute signs of ischemia Impression Assessment and Plan 81-year-old female with acute on chronic respiratory insufficiency: #1 Respiratory Insufficiency: Exact etiology of the patient's subjective respiratory insufficiency is unknown. I have done an exhaustive search of her previous medical history. After reviewing the EMS system it does appear after the plication by Dr. Thapa that the patient's pulmonary status is improved. Also previous polio function test showed no signs of COPD and no signs of reversible airway disease suggestive of asthma. Also after evaluating the patient I walk back into her room vascular a few questions she was sleeping with no signs of respiratory insufficiency on room air pulse ox was noted to be 94% at that time. At this time I suggest we move forward with: - Medications: Continue current inpatient medications no acute changes also agree with holding off on antibiotics -Steroids: Continue current steroid dosing and slowly titrate off 2.5 mg per week as patient could be psychologically and possibly physiologically addicted at this time. -Diuresis: Patient has gained 12 kg over the last month, aggressive diuresis with monitoring renal function were the likely will help pulmonary compliance. -Patient's echocardiogram shows signs of left ventricular hypertrophy possibly increasing patient's respiratory insufficiency outpatient workup will be necessary. #2 Anxiety: Might be beneficial at this time for psychiatry to evaluate our patient.
[2016-10-23] MEDS ORDERED: NURSING VERBAL MED ORDER ONE (12:45)
[2016-10-23] MEDS ORDERED: FUROSEMIDE INJ 40 MG in SYRINGE 0 ML IV ONE (13:00)
--- NOTE | 2016-10-23 15:32 | Hospitalist Progress Note ---
Hospitalist Progress Note Date of Service Oct 23, 2016. Subjective Pt evaluation today including: conversation w/ patient, conversation w/ family , physical exam, chart review, lab review, review of studies, conversation w/ benefits consultant (Pulm), review of inpatient medication list Voiding: no voiding problems Pt still w/ c/o SOB, but remains with normal POx, abg reviewed this AM and case discussed at length with Pulm as well as pt and daughter. Pt denies any anxiety at all and says she has never been treated for anxiety or depression, but is on Celexa. She has diuresed based on body weight alone over the last 2-3 days on IV lasix. Daughter admits that she has noticed pt is anxious since the plication surgery. Constitutional: No fever Eyes: No problem reported ENT: No problem reported Respiratory: + dyspnea on exertion, + shortness of breath Cardiovascular: No chest pain Abdomen: No constipation, No pain Psychiatric: + anxiety, No depression symptoms Skin: No rash Objective Vital Signs Date Time Temp Pulse Resp B/P Pulse Ox O2 Delivery O2 Flow Rate FiO2 10/23/16 15:11 37.2 98 20 129/80 92 10/23/16 14:21 108 22 95 Room Air 10/23/16 12:15 Room Air 10/23/16 11:56 36.9 78 16 154/81 93 Room Air 10/23/16 08:30 Room Air 10/23/16 07:15 36.8 93 20 171/90 94 Room Air 176/79 10/23/16 07:08 97 18 93 Room Air 10/23/16 04:37 36.9 105 19 168/106 95 Room Air 10/23/16 04:00 Room Air 10/23/16 02:03 98 16 94 Room Air 10/23/16 00:00 Room Air 10/22/16 23:19 36.9 101 18 164/84 94 Room Air 10/22/16 20:00 Room Air 10/22/16 18:59 36.7 105 22 136/81 95 Room Air 10/22/16 18:46 102 22 92 Room Air 10/22/16 16:30 Room Air Physical Exam General Appearance: WD/WN, no apparent distress (before pt was aware I was observing her, she was resting comfortably in bed but as soon as I walked in the room, she immediately started hyperventilating and kept her eyes closed avoiding eye contact while answering my questions for over 20 min. When giving long answers with fluent sentences, she had no dyspnea at all, then would return to hyperventilating. Partway through interview,daughter came into room and pt increased her respiratory rate even more ), + obese Eyes: normal inspection, sclerae normal Neck: trachea midline Respiratory/Chest: lungs clear, normal breath sounds, no respiratory distress, no accessory muscle use Cardiovascular: regular rate, rhythm, no edema, no gallop, no murmur Abdomen: normal bowel sounds, non tender, soft (abd obese) Extremities: non-tender, normal inspection, no pedal edema, no calf tenderness Neurologic/Psychiatric: alert (but keeps eyes closed for the most part but is awake), oriented x 3, + depressed affect Skin: normal color, warm/dry, no rash Laboratory Results Last 24 Hours Test 10/23/16 06:23 10/23/16 10:03 White Blood Count 10.05 K/uL Red Blood Count 4.51 M/uL Hemoglobin 13.1 g/dL Hematocrit 40.4 % Mean Corpuscular Volume 89.6 fL Mean Corpuscular Hemoglobin 29.0 pg Mean Corpuscular Hemoglobin Concent 32.4 g/dl Platelet Count 281 K/uL Mean Platelet Volume 9.9 fL Neutrophils (%) (Auto) 81.3 % Lymphocytes (%) (Auto) 11.2 % Monocytes (%) (Auto) 5.9 % Eosinophils (%) (Auto) 0.0 % Basophils (%) (Auto) 0.1 % Neutrophils # (Auto) 8.17 K/uL Lymphocytes # (Auto) 1.13 K/uL Monocytes # (Auto) 0.59 K/uL Eosinophils # (Auto) 0.00 K/uL Basophils # (Auto) 0.01 K/uL RDW Standard Deviation 56.4 fL RDW Coefficient of Variation 17.2 % Immature Granulocyte % (Auto) 1.5 % Immature Granulocyte # (Auto) 0.15 K/uL Prothrombin Time 10.4 SECONDS Prothromb Time International Ratio 1.0 Activated Partial Thromboplast Time 28.1 SECONDS Partial Thromboplastin Ratio 1.1 Sodium Level 139 mmol/L Potassium Level 4.0 mmol/L Chloride Level 103 mmol/L Carbon Dioxide Level 24 mmol/L Anion Gap 12.0 mmol/L Blood Urea Nitrogen 22 mg/dl Creatinine 0.97 mg/dl Est Creatinine Clear Calc Drug Dose 48.7 ml/min Estimated GFR () 64.4 Estimated GFR (Non- 55.5 BUN/Creatinine Ratio 22.8 Random Glucose 148 mg/dl Calcium Level 8.8 mg/dl Magnesium Level 2.0 mg/dl Total Bilirubin 1.2 mg/dl Direct Bilirubin 0.2 mg/dl Aspartate Amino Transf (AST/SGOT) 15 U/L Alanine Aminotransferase (ALT/SGPT) 30 U/L Alkaline Phosphatase 76 U/L Total Protein 7.3 gm/dl Albumin 3.6 gm/dl Thyroid Stimulating Hormone (TSH) 1.360 uIu/ml Free Thyroxine 1.01 ng/dl Arterial Blood pH 7.54 Arterial Blood Partial Pressure CO2 27 mmHg Arterial Blood Partial Pressure O2 77 mm/Hg Arterial Blood HCO3 23 mmol/L Arterial Blood Oxygen Saturation 96.1 % Arterial Blood Base Excess 1.2 mEq/L Arterial Blood Gas Delivery ROOM AIR John Test POS Assessment and Plan 81 yo female with ?COPD/mild asthma, chronic dCHF, obesity, chronic back and joint pain, 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 Shortness of breath/chronic right pleural effusion/30 pound weight gain-seems to be secondary to a combination of weight gain likely from chronic high dose steroids, mild volume overload, and with steroid-dependent asthma along with large suspected anxiety component. Not hypoxic, A-a gradient minimally elevated , no signs of PNA. Did diurese a bit with IV lasix. Pulm recommends: -Continue current inpatient medications no acute changes also agree with holding off on antibiotics -Steroids: Continue current steroid dosing and slowly titrate off 2.5 mg per week as patient could be psychologically and possibly physiologically addicted at this time. -Diuresis: Patient has gained 12 kg over the last month, aggressive diuresis with monitoring renal function were the likely will help pulmonary compliance. -Patient's echocardiogram shows signs of left ventricular hypertrophy possibly increasing patient's respiratory insufficiency outpatient workup will be necessary. Abd US with mild fatty liver but no ascites. Likely feels abd increased girth from chronic high dose prednisone. TSH normal -treat Anxiety--> increase Celexa to 40mg daily -switch back to daily po lasix and increase dose to 40mg -needs conditioning, weight loss, rehab--> pt wants home PT/OT only -f/u with Pulm as outpatient -continue nebs, prednisone 30mg daily -could d/c to home on Monday Acute on chronic diastolic CHF, echo shows diastolic dysfunction 2 g sodium diet, fluid restriction to 1.8 L daily Lasix IV given and now transition to po -optimally should be on beta richy and VONNIE inhibitor, however patient has orthostatic hypotension, possible not able to tolerate, she is Midodrine now Hypothyroidism -TSH and FT4 here normal continue levothyroxine sodium 88 g by mouth lauren GERD/gastroparesis--continue current medication Hypercholesterolemia--continue simvastatin 20 mg by mouth at bedtime. Orthostatic hypotension--continue midodrine 3 times a day. Vitamin B12 deficiency- continue 1000 g by mouth daily supplement. Depression/anxiety--worsening her SOB which seems to be largely self-induced hyperventilation based on observation -increase citalopram to 40 mg by mouth daily. -f/u with PCP Proph- heparin Dispo-to home with home health hopeful for Monday if pt feeling better with breathing/Anxiety
[2016-10-23] MEDS ORDERED: CITALOPRAM 20 MG TAB PO ONE (16:00)
[2016-10-23] MEDS: BACLOFEN 10 MG TAB PO PRN (20:18)
[2016-10-23] MEDS: SIMVASTATIN 20 MG TAB PO SCH (20:20)
[2016-10-24] VITALS (10 sets, daily range): BP systolic 128–162; BP diastolic 75–85; PULSE 81–107; TEMP 36.5–37.4; O2SAT 93–97
[2016-10-24] MEDS: IPRATROPIUM BROMIDE NEB SOLN 0.02% 2.5 ML VIAL INH SCH ×4 (01:45→18:19)
[2016-10-24] MEDS: LEVALBUTEROL 1.25MG/0.5ML NEB INH SCH ×4 (01:45→18:20)
[2016-10-24] MEDS: LEVOTHYROXINE 88 MCG TAB PO SCH (06:13)
[2016-10-24] MEDS: HEPARIN SOD 5000 UNIT/0.5 ML CARP SQ SCH ×3 (06:14→20:28)
[2016-10-24 06:24] LABS: BASO % 0.1 %; BASO ABS # 0.01 K/uL (0-0.2); COMPLETE YES; EOS % 0.7 %; HEMATOCRIT 38.3 % (37-47); IG% 1.9 %; LYMPH % 25.9 %; LYMPH ABS # 1.81 K/uL (1.2-3.4); MEAN CELL VOLUME 91.4 fL (80-100); MEAN CORPUSCULAR HEMOGLOBIN 29.1 pg (25-34); MEAN CORPUSCULAR HGB CONC 31.9 g/dl (32-36); MONO % 8.9 %; NEUT % 62.5 %; PLATELET COUNT 271 K/uL (130-400); RED BLOOD COUNT 4.19 M/uL (4.2-5.4); WHITE BLOOD COUNT 6.99 K/uL (4.8-10.8)
[2016-10-24 06:51] LABS: BUN/CREATININE RATIO 29.8 (10-20); CALCIUM 8.9 mg/dl (8.5-10.1); CREATININE 1.1 mg/dl (0.60-1.20); MAGNESIUM 2.2 mg/dl (1.8-2.4); POTASSIUM 3.8 mmol/L (3.5-5.1)
[2016-10-24] MEDS: BUDESONIDE 0.5 MG/2 ML VIAL (PULMICORT) INH SCH ×2 (07:14→18:19)
[2016-10-24] MEDS: MIDODRINE 2.5 MG TAB PO SCH ×3 (07:50→16:35)
[2016-10-24] MEDS: [UNRECOGNIZED DRUG - OTHER] SCH ×3 (07:50→20:31)
[2016-10-24] MEDS: BOOST VANILLA PO SCH ×4 (07:51→20:26)
[2016-10-24] MEDS: CYANOCOBALAMIN 500 MCG TAB (VIT B-12) PO SCH (07:51)
[2016-10-24] MEDS: CHOLECALCIFEROL 1000 INTER.UNIT TAB PO SCH (07:52)
[2016-10-24] MEDS: PANTOprazole SOD 40 MG TAB PO SCH ×2 (07:52→20:30)
[2016-10-24] MEDS: BACLOFEN 10 MG TAB PO PRN (07:53)
[2016-10-24] MEDS: POTASSIUM CHLORIDE 20 MEQ TABCR PO SCH ×2 (07:53→20:30)
[2016-10-24] MEDS: CITALOPRAM 40 MG TAB PO SCH (07:53)
[2016-10-24] MEDS: FUROSEMIDE 40 MG TAB PO SCH (07:54)
[2016-10-24] MEDS: LIDODERM (LIDOCAINE) PATCH 5% TD SCH (07:55)
[2016-10-24] MEDS: KETOROLAC 0.5% OP SOLN 3 ML BTL OPL SCH ×4 (07:55→20:28)
[2016-10-24] MEDS: PrednisoLONE ACET 1% OP SUSP 5 ML BTL OPL SCH ×4 (07:55→20:28)
[2016-10-24] MEDS: NYSTATIN POWDER 15GM BTL EXT SCH ×2 (07:55→20:28)
--- NOTE | 2016-10-24 08:08 | PULMONARY PROGRESS NOTE ---
DATE: 10/24/2016 The patient is comfortable this morning, stating she is better. She was out of bed in the chair yesterday. She denies cough or wheezing. Denies any chest discomfort. Has not had any edema of the lower extremities. I reviewed her CT scan from 10/20/2016 and her chest x-ray now just reveals basilar atelectatic changes and mild hyperinflation consistent with asthma. PHYSICAL EXAMINATION: VITAL SIGNS: Stable and she is afebrile. Blood pressure 151/85, oxygen saturation 96% on room air and CPAP. I\T\O is unknown. Weight 88.7 kilograms. According to the nurses' notes, she had a fairly good night last night, resting comfortably at 0400, tolerated the BiPAP well. HEENT: Unremarkable except for a small posterior pharynx. No thrush is noted. There is no neck vein distention or HJR. HEART: Regular rate and rhythm. No murmurs are heard. LUNGS: Reveal minimal wheezing right at the end of expiration bilaterally. No fremitus is noted. There is no dullness to percussion. ABDOMEN: Soft, nontender, no fluid is noted, no organomegaly is noted. EXTREMITIES: She has no cyanosis, clubbing or edema. LABORATORY DATA: White count 6.99, hemoglobin and hematocrit of 12.2 and 38.3%, platelet count 271,000. Blood gas revealed pH 7.54, pCO2 of 27, pO2 of 77 with a relatively normal A-a gradient. PRP is unremarkable. Glucose of 148. TSH, cardiac enzymes, liver enzymes, coagulation profile are all normal. She had a bronchoscopy done in 01/2016, that was unremarkable. IMPRESSION: 1. Atelectasis at the bases. 2. Asthma. 3. Status post right hemidiaphragm plication. That has worked very well. RECOMMENDATIONS: 1. At this point, I continue with her present medications. I think the prednisone could be tapered down at 20 mg with a slow taper over about 10 days. 2. Continue on good DVT prophylaxis with subcu heparin and SCDs. 3. Increase the patient's activity. 4. Continue on the Xopenex and Pulmicort Respules. She could be changed over to Symbicort 160/4.5 two puffs b.i.d. as well. 5. Antireflux regimen. Overall, she is quite stable.
[2016-10-24] MEDS: GABAPENTIN 300 MG CAP PO SCH (11:44)
--- NOTE | 2016-10-24 13:41 | Progress Note ---
Subjective Date of Service: Oct 24, 2016. Subjective Pt evaluation today including: conversation w/ patient, physical exam, chart review, lab review, review of studies, review of inpatient medication list Patient seen and evaluated. Utilized BiPAP overnight and tolerated well. Up in bedside chair eating breakfast. Holds normal conversation without dyspnea. At rest she does not appear in any distress. States breathing somewhat improved since admission but largely unchanged. Has had restless nights and reports BiPAP helped her sleep. Problem List Medical Problems: (1) Cervical strain Status: Acute (2) Fall Status: Acute (3) Head injury Status: Acute (4) Head injury Status: Acute (5) Hip pain Status: Acute (6) Hypoxia Status: Acute (7) Pneumonia Status: Acute (8) Syncope Status: Acute (9) Traumatic compression fracture of third thoracic vertebra Status: Acute Review of Systems Constitutional: No chills, No fever Respiratory: + dyspnea on exertion, No cough, No shortness of breath Cardiac: No chest pain Abdomen: + problem reported (complains of increased abdominal girth and weight gain), No constipation, No diarrhea, No nausea, No pain, No vomiting Musculoskeletal: No swelling Female : No dysuria Skin: No rash Medications Current Inpatient Medications Medications (Trade) Dose Ordered Sig/Natasha Route Start Time Stop Time Status Last Admin Dose Admin Lorazepam (Ativan Inj) 0.5 mg Q4H PRN IV 10/21/16 15:00 11/20/16 14:59 Acetaminophen (Tylenol Tab) 650 mg Q4H PRN PO 10/21/16 15:00 11/20/16 14:59 Magnesium Hydroxide (Milk Of Magnesia Susp) 30 ml Q6H PRN PO 10/21/16 15:00 11/20/16 14:59 Diphenhydramine HCl (Benadryl Inj) 25 mg Q4H PRN IV 10/21/16 15:00 11/20/16 14:59 Al Hydrox/Mg Hydrox/ Simethicone 15 ml 15 ml Q4H PRN PO 10/21/16 15:00 11/20/16 14:59 Promethazine HCl/ Sodium Chloride (Phenergan Inj/ Nss 50ml) 50.5 ml @ 202 mls/hr Q4H PRN IV 10/21/16 15:00 11/20/16 14:59 Zolpidem Tartrate (Ambien Tab) 5 mg HSZ PRN PO 10/21/16 15:00 11/20/16 14:59 Ondansetron HCl (Zofran Inj) 4 mg Q6H PRN IV 10/21/16 15:00 11/20/16 14:59 Morphine Sulfate (MoRPHine SULFATE INJ) 2 mg Q2H PRN IV 10/21/16 15:00 11/04/16 14:59 Budesonide (Pulmicort Respules 0.5MG/ 2ML Neb Soln) 0.5 mg BIDR INH 10/21/16 20:00 11/20/16 19:59 10/24/16 07:14 0.5 MG Acetaminophen/ Butalbital/ Caffeine (Fioricet Tab) 1 tab Q4 PRN PO 10/21/16 15:15 11/20/16 15:14 Baclofen (Lioresal Tab) 10 mg TID PRN PO 10/21/16 15:15 11/20/16 15:14 10/24/16 07:53 10 MG Chlorphenir/ Hydrocodone Polistirex (Tussionex Liqd) 5 ml Q6 PRN PO 10/21/16 15:15 11/04/16 15:14 Cholecalciferol (Vitamin D Tab) 1,000 inter.unit DAILY PO 10/22/16 09:00 11/21/16 08:59 10/24/16 07:52 1,000 INTER.UNIT Cyanocobalamin (Vitamin B-12 Tab) 1,000 mcg DAILY PO 10/22/16 09:00 11/21/16 08:59 10/24/16 07:51 1,000 MCG Diclofenac Sodium (Voltaren 1% Top Gel) 1 appln QID PRN EXT 10/21/16 15:15 11/20/16 15:14 Gabapentin (Neurontin Cap) 300 mg DAILY@1200 PO 10/22/16 12:00 11/21/16 11:59 10/24/16 11:44 300 MG Ketorolac Tromethamine (Acular 0.5 Oph Soln) 1 drops QID OPL 10/21/16 17:00 11/20/16 16:59 10/24/16 07:55 1 DROPS Levothyroxine Sodium (Synthroid Tab) 88 mcg DAILYBB PO 10/22/16 06:30 11/21/16 06:29 10/24/16 06:13 88 MCG Lidocaine (Lidoderm Patch 5%) 1 patch DAILY TD 10/22/16 09:00 11/21/16 08:59 10/24/16 07:55 1 PATCH Nystatin (Mycostatin Powder) 1 appln BID EXT 10/21/16 21:00 11/20/16 20:59 10/24/16 07:55 1 APPLN Prednisolone Acetate (Pred Forte 1% Oph Susp) 1 drops QID OPL 10/21/16 17:00 11/20/16 16:59 10/24/16 07:55 1 DROPS Ropinirole HCl (Requip Tab) 0.5 mg HS PRN PO 10/21/16 15:15 11/20/16 15:14 10/23/16 20:17 0.5 MG Simvastatin (Zocor Tab) 20 mg HS PO 10/21/16 21:00 11/20/16 20:59 10/23/16 20:20 20 MG Tramadol HCl (Ultram Tab) 50 mg Q4H PRN PO 10/21/16 15:15 11/20/16 15:14 10/23/16 21:38 50 MG Miscellaneous Information (Order Awaiting Action) 1 ea QS N/A 10/21/16 16:00 11/20/16 15:59 Potassium Chloride (Klor-Con Tab) 20 meq BID PO 10/21/16 21:00 11/20/16 20:59 10/24/16 07:53 20 MEQ Pantoprazole Sodium (Protonix Tab) 40 mg BID PO 10/21/16 21:00 11/20/16 20:59 10/24/16 07:52 40 MG Miscellaneous (Remove Lidoderm Patch) 1 ea DAILY@21 N/A 10/21/16 21:00 11/20/16 20:59 10/23/16 20:22 1 EA Morphine Sulfate (MoRPHine SULFATE INJ) 4 mg Q2H PRN IV 10/21/16 15:15 11/04/16 15:14 Ipratropium Yulan (Atrovent 0.02% 0.5MG/2.5ML Neb) 0.5 mg Q6R INH 10/21/16 21:00 11/20/16 20:59 10/24/16 07:14 0.5 MG Levalbuterol (Xopenex 1.25MG/ 0.5ML Neb) 1.25 mg Q6R INH 10/21/16 21:00 11/20/16 20:59 10/24/16 07:14 1.25 MG Ipratropium Yulan (Atrovent 0.02% 0.5MG/2.5ML Neb) 0.5 mg Q2R PRN INH 10/21/16 15:45 11/20/16 15:44 Levalbuterol 1.25 mg 1.25 mg Q2R PRN INH 10/21/16 15:45 11/20/16 15:44 Lorazepam/Syringe (Ativan Inj/ Syringe) 1 ml @ 1 mls/min Q4H PRN IV 10/21/16 16:00 11/20/16 15:59 Miscellaneous Information (Order Awaiting Action) 1 ea QS N/A 10/22/16 16:00 11/21/16 15:59 Heparin Sodium (Porcine) (Heparin Sq 5000 Unit/0.5ml) 5,000 unit Q8 SQ 10/22/16 14:00 11/21/16 13:59 10/24/16 06:14 5,000 UNIT Midodrine (Proamatine Tab) 2.5 mg TID@0800,1200,1600 PO 10/22/16 12:00 11/21/16 11:59 10/24/16 11:44 2.5 MG Enteral Nutritional Formula (Boost) 1 can BID PO 10/22/16 21:00 11/21/16 20:59 10/24/16 07:51 1 CAN Citalopram Hydrobromide (celeXA TAB) 40 mg DAILY PO 10/24/16 09:00 11/23/16 08:59 10/24/16 07:53 40 MG Furosemide (Lasix Tab) 40 mg QAM PO 10/24/16 09:00 11/23/16 08:59 10/24/16 07:54 40 MG Prednisone (PredniSONE TAB) 20 mg DAILY PO 10/25/16 09:00 11/24/16 08:59 UNV Objective Vital Signs Date Time Temp Pulse Resp B/P Pulse Ox O2 Delivery O2 Flow Rate FiO2 10/24/16 12:07 Room Air 10/24/16 11:31 37.4 104 16 128/79 93 Room Air 10/24/16 08:00 Room Air 10/24/16 07:17 36.8 85 16 162/78 96 Room Air 10/24/16 07:14 86 18 95 Room Air 10/24/16 04:46 36.5 92 18 151/85 96 CPAP 10/24/16 04:00 Room Air 10/24/16 01:45 91 18 97 Room Air 10/24/16 00:00 Room Air 10/23/16 23:43 36.8 93 20 151/84 93 Room Air 93 10/23/16 22:39 93 96 10/23/16 20:00 Room Air 10/23/16 19:59 36.8 108 18 125/81 92 Room Air 10/23/16 19:00 103 18 97 Room Air 10/23/16 16:15 Room Air 10/23/16 15:11 37.2 98 20 129/80 92 10/23/16 14:21 108 22 95 Room Air Physical Exam General Appearance: WD/WN, no apparent distress Eyes: sclerae normal ENT: hearing grossly normal Neck: supple, no JVD, trachea midline Respiratory/Chest: lungs clear, no respiratory distress, no accessory muscle use, + decreased breath sounds Cardiovascular: regular rate, rhythm, no gallop, no murmur Abdomen: normal bowel sounds, non tender, soft Extremities: no pedal edema, no calf tenderness Neurologic/Psychiatric: alert Skin: normal color, warm/dry Laboratory Results Last 24 Hours Test 10/24/16 05:35 White Blood Count 6.99 K/uL Red Blood Count 4.19 M/uL Hemoglobin 12.2 g/dL Hematocrit 38.3 % Mean Corpuscular Volume 91.4 fL Mean Corpuscular Hemoglobin 29.1 pg Mean Corpuscular Hemoglobin Concent 31.9 g/dl Platelet Count 271 K/uL Mean Platelet Volume 10.0 fL Neutrophils (%) (Auto) 62.5 % Lymphocytes (%) (Auto) 25.9 % Monocytes (%) (Auto) 8.9 % Eosinophils (%) (Auto) 0.7 % Basophils (%) (Auto) 0.1 % Neutrophils # (Auto) 4.37 K/uL Lymphocytes # (Auto) 1.81 K/uL Monocytes # (Auto) 0.62 K/uL Eosinophils # (Auto) 0.05 K/uL Basophils # (Auto) 0.01 K/uL RDW Standard Deviation 58.1 fL RDW Coefficient of Variation 17.4 % Immature Granulocyte % (Auto) 1.9 % Immature Granulocyte # (Auto) 0.13 K/uL Sodium Level 141 mmol/L Potassium Level 3.8 mmol/L Chloride Level 103 mmol/L Carbon Dioxide Level 29 mmol/L Anion Gap 9.0 mmol/L Blood Urea Nitrogen 33 mg/dl Creatinine 1.10 mg/dl Est Creatinine Clear Calc Drug Dose 42.9 ml/min Estimated GFR () 55.3 Estimated GFR (Non- 47.7 BUN/Creatinine Ratio 29.8 Random Glucose 125 mg/dl Calcium Level 8.9 mg/dl Magnesium Level 2.2 mg/dl Total Bilirubin 1.1 mg/dl Direct Bilirubin 0.2 mg/dl Aspartate Amino Transf (AST/SGOT) 11 U/L Alanine Aminotransferase (ALT/SGPT) 25 U/L Alkaline Phosphatase 67 U/L Total Protein 6.9 gm/dl Albumin 3.5 gm/dl Assessment and Plan 81 yo female with ?COPD/mild asthma, chronic dCHF, obesity, chronic back and joint pain, 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 SOB with Chronic R Pleural Effusion: Associated 30 lbs Weight Gain - Chronic Steroids vs Mild Overload vs Asthma vs Anxiety - Will reduce steroids to Prednisone 20 mg daily and plan for taper as outpatient - Lasix 40 mg po daily - diurese as this may help with pulmonary effort - Nebulizers NATASHA and PRN - Pulmonary following Acute on Chronic Diastolic CHF: - Continue fluid restriction and low Na diet - Lasix 40 mg po daily Anxiety: - Celexa has been increased to 40 mg daily Hypothyroidism: - Synthroid 88 mcg daily DVT Prophylaxis: - Heparin 5000 units Q8H Disposition: - Possible D/C tomorrow with home PT/OT services - Outpatient pulmonary follow-up Continued [facility] stay due to: multiple IV medications needed Discharge planning: home with home health
[2016-10-24] MEDS: SIMVASTATIN 20 MG TAB PO SCH (20:31)
[2016-10-25] VITALS (7 sets, daily range): BP systolic 117–161; BP diastolic 73–82; PULSE 89–103; TEMP 36.2–37.1; O2SAT 94–96
[2016-10-25] MEDS: IPRATROPIUM BROMIDE NEB SOLN 0.02% 2.5 ML VIAL INH SCH ×2 (01:53→07:35)
[2016-10-25] MEDS: LEVALBUTEROL 1.25MG/0.5ML NEB INH SCH ×2 (01:53→07:35)
[2016-10-25] MEDS: HEPARIN SOD 5000 UNIT/0.5 ML CARP SQ SCH (06:27)
[2016-10-25] MEDS: LEVOTHYROXINE 88 MCG TAB PO SCH (06:27)
[2016-10-25] MEDS: BUDESONIDE 0.5 MG/2 ML VIAL (PULMICORT) INH SCH (07:51)
[2016-10-25] MEDS: MIDODRINE 2.5 MG TAB PO SCH ×2 (08:00→12:33)
[2016-10-25] MEDS: [UNRECOGNIZED DRUG - OTHER] SCH (08:00)
[2016-10-25] MEDS: PANTOprazole SOD 40 MG TAB PO SCH (08:01)
[2016-10-25] MEDS: CHOLECALCIFEROL 1000 INTER.UNIT TAB PO SCH (08:01)
[2016-10-25] MEDS: FUROSEMIDE 40 MG TAB PO SCH (08:01)
[2016-10-25] MEDS: BACLOFEN 10 MG TAB PO PRN (08:02)
[2016-10-25] MEDS: CYANOCOBALAMIN 500 MCG TAB (VIT B-12) PO SCH (08:03)
[2016-10-25] MEDS: GABAPENTIN 300 MG CAP PO SCH (08:03)
[2016-10-25] MEDS: CITALOPRAM 40 MG TAB PO SCH (08:03)
[2016-10-25] MEDS: NYSTATIN POWDER 15GM BTL EXT SCH (08:04)
[2016-10-25] MEDS: LIDODERM (LIDOCAINE) PATCH 5% TD SCH (08:04)
[2016-10-25] MEDS: POTASSIUM CHLORIDE 20 MEQ TABCR PO SCH (08:04)
[2016-10-25] MEDS: PrednisoLONE ACET 1% OP SUSP 5 ML BTL OPL SCH ×2 (08:04→12:34)
[2016-10-25] MEDS: KETOROLAC 0.5% OP SOLN 3 ML BTL OPL SCH ×2 (08:05→12:34)
[2016-10-25] MEDS: BOOST VANILLA PO SCH ×2 (08:12)
--- NOTE | 2016-10-25 08:52 | Discharge Instructions ---
Discharge Instructions Admission Reason for Admission: Sob,Uhf, Discharge Discharge Diagnosis / Problem: Shortness of Breath Discharge Goals Goal(s): Decrease discomfort, Improve function, Increase independence Activity Recommendations Activity Limitations: resume your previous activity . Instructions / Follow-Up Instructions / Follow-Up Shortness of Breath with Associated Weight Gain: - Chest X-Ray while admitted showed evidence of a chronic right lung pleural effusion (fluid on the lung) this may be contributing to your shortness of breath -- This X-ray did not show a pneumonia. -- Continue your Lasix (water pill) to help prevent too much fluid building up which will help with breathing -- Follow a low salt diet as this will help prevent you from retaining fluids - Weight Gain can be associated with the long-term steroid use and this weight gain can be making your breathing worse. -- We will taper the prednisone down slowly with Prednisone 20 mg daily for 2 days then 15 mg for 3 days then 10 mg for 3 days then 5 mg for 3 days -- A prescription will be provided. - Continue using your incentive spirometer to help try and take deeper breaths to open up those lower airways. - Ambulating and sitting up in a chair may help with this compared to laying flat in bed. Anxiety: - If you get anxious or get fearful with walking this can increase your breathing which will make you more short of breath. - We have increased your Celexa to 40 mg daily Follow-Up: - Please follow-up with your family doctor in 1 week - Please follow-up with pulmonary (lung doctor) in 1 week Current Hospital Diet Patient's current hospital diet: AHA Diet (Heart Healthy) Discharge Diet Recommended Diet: AHA Diet (Heart Healthy) Pending Studies Studies pending at discharge: no Medical Emergencies . Who to Call and When: Medical Emergencies: If at any time you feel your situation is an emergency, please call 911 immediately. . Non-Emergent Contact Non-Emergency issues call your: Primary Care Provider Call Non-Emergent contact if: you have a fever, you have any medication questions . . "Provider Documentation" section prepared by Ambreen Cid. VTE Core Measure Inpt VTE Proph given/why not?: SCD's
[2016-10-25] MEDS ORDERED: CLX40 PO (09:00)
[2016-10-25] MEDS ORDERED: PRED10TA PO ×2 (09:00→09:50)
--- NOTE | 2016-10-25 09:40 | PROGRESS NOTE ---
DATE: 10/25/2016 DATE: 10/25/2016. SUBJECTIVE: The patient is quite comfortable this morning sitting out of bed in the chair with no wheezing, cough or chest pain. She states she slept fairly well last night. She denies any sputum production, has not had any nausea or vomiting. OBJECTIVE: VITAL SIGNS: Stable and she is afebrile. Oxygen saturation is 94% on room air with BiPAP. Weight is stable at 88.4 kilograms down from 92.3 kilograms on the 3rd. According to nurses' note she had a fairly good night last night with no significant complaints. HEAD, EYES, EARS, NOSE, AND THROAT: Unremarkable. HEART: Regular rate and rhythm. LUNGS: Reveal bronchial breath sounds at the left base with few crackles at the left base. There is a bandage over the left hemithorax. ABDOMEN: Soft, nontender. EXTREMITIES: She has no cyanosis, clubbing or edema. LABORATORY DATA: White count was 6.9 yesterday, hematocrit 38%. PRP looked good except for BUN of 33. IMPRESSION: 1. Atelectasis at the bases, left greater than the right. 2. Status post right hemidiaphragm plication. 3. Asthma under good control. RECOMMENDATIONS: Continue with her present medications and taper the prednisone down over about a week. Continue with her present inhalers and she could be placed on Xopenex metered dose inhaler 2 puffs 4 times a day and Asmanex 220 mcg 1 inhalation b.i.d., Overall, she is stable.
--- NOTE | 2016-10-25 15:00 | Discharge Summary ---
Discharge Summary Admission Date: Oct 21, 2016 at 13:49 Discharge Date: Oct 25, 2016 Discharge Disposition: Home with services Principal Diagnosis: Shortness of Breath Problems/Secondary Diagnoses: 1. COPD/Mild Asthma 2. Diastolic Congestive Heart Failure 3. Chronic Back Pain 4. 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 GERD 6. Thyroid CA S/P Thyroidectomy 7. Dyslipidemia 8. Depression/Anxiety Immunizations: Have You Had Influenza Vaccine: N/A Influenza Vaccine Date: Jun 18, 2012 History of Tetanus Vaccine?: Yes Tetanus Immunization Date: Mar 18, 2004 History of Pneumococcal: Yes Pneumococcal Date: May 31, 2010 History of Hepatitis B Vaccine: No Procedures: 1. CHEST ONE VIEW PORTABLE CLINICAL HISTORY: Is a breath, dyspnea on exertion. COMPARISON STUDY: 10/07/2016 FINDINGS: There are postsurgical changes present within the lumbar spine cervical spine. The heart is the upper limits of normal in size. There is a small right pleural effusion. There are bibasal airspace opacities likely atelectatic.[ IMPRESSION: 1. Persistent right pleural effusion 2. Bibasilar airspace opacities likely atelectatic 3. No evidence of failure 2. ABDOMINAL ULTRASOUND COMPLETE HISTORY: Pain. Nausea. abdominal pain, distension. COMPARISON: None. FINDINGS: Pancreas: The pancreas demonstrates a normal echotexture. Liver: Mild fatty infiltration Gallbladder: No gallbladder wall thickening. No gallstones. CBD: 5 mm Kidneys: No hydronephrosis. Spleen: Normal in size. Aorta: Normal in caliber. IVC: Patent. IMPRESSION: Mild fatty infiltration of liver. Otherwise negative study 3. ECHOCARDIOGRAM - Left ventricular systolic function is normal. - No regional wall motion abnormalities noted. - Ejection Fraction = 65-70%. - There is mild concentric left ventricular hypertrophy. - Grade I diastolic dysfunction, (abnormal relaxation pattern). - No significant valvular pathology. Consultations: 1. Pulmonology 2. PT/OT Medication Reconciliation New Medications: Citalopram (Citalopram Hydrobromide) 40 Mg Tab 40 MG PO DAILY for 14 Days, #14 TAB Prednisone (Prednisone) 10 Mg Tab 10 MG PO DAILY, #13 TAB Take 2 tablets daily for two days then 1 1/2 tablets daily for three days then 1 tablet daily for three days then 1/2 tablet daily for three days Continued Medications: Acetamin/Butalbital/Caffeine (Fioricet) 1 Ea Tab 1 TAB PO Q4 PRN for Headache, #30 Acetaminophen (Tylenol Arthritis Ext Rel) 650 Mg Cplt 650 MG PO Q4H PRN for Pain, CAP Arformoterol Tartrate (Brovana) 15 Mcg/2 Ml Neb 15 MCG INH BID PRN for SOB/Wheezing, INHALER Baclofen (Lioresal) 10 Mg Tab 10 MG PO TID PRN for Muscle Spasms, TAB Calcium Carbonate (Calcium Carbonate) 1,250 Mg Tab 1 TAB PO HS Chlorphenir/Hydrocod Polistir (Tussionex) Liqcr 5 ML PO Q6 PRN for Cough for 10 Days, #100 ML Cholecalciferol (Vitamin D-1000) 1,000 Unit Tab 1000 UNITS PO DAILY Cyanocobalamin (Vitamin B-12) 500 Mcg Tab 1000 MCG PO DAILY, TAB Diclofenac Sod (Voltaren 1% Top Gel) Gel 2 GM TOP QID PRN for Pain Furosemide (Furosemide) 20 Mg Tab 20 MG PO UD, #30 [facility] TOLD DAUGHTER TO GIVE 1 TAB DAILY OR QOD PT CAN TOLERATE. Gabapentin (Gabapentin) 300 Mg Cap 300 MG PO DAILY@1200 for 30 Days, #30 CAP Ipratropium-Albuterol (Combivent Respimat) 1 Aer Aer 1 PUFFS INH QID PRN for SOB/Wheezing, INH Ipratropium-Albuterol (Duoneb) 3 Ml Nebu 1 TREATMENT INH Q4H PRN for SOB/Wheezing, INHA Ketorolac Tromethamine (Ophth) (Ketorolac Tromethamine) 0.5 % Renetta 1 DROP OPL QID, #15 Levofloxacin (Levaquin) 500 Mg Tab 500 MG PO DAILY for 7 Days, #7 TAB Levothyroxine Sodium (Levothyroxine Sodium) 88 Mcg Tab 88 MCG PO DAILY for 90 Days, #90 TAB 3 Refills Lidocaine (Lidoderm Patch 5% Patch) 1 Patch Tdsy 1 PATCH TOP DAILY ON 12 HOURS, OFF 12 HOURS Linaclotide (Linzess) 290 Mcg Cap 1 CAP PO QAM PRN for GI Upset Melatonin (Kp Melatonin) 3 Mg Tab 1 TAB PO HS Midodrine Hcl (Midodrine Hcl) 2.5 Mg Tab 1 TAB PO TID Nystatin (Topical) (Nystop) 100,000 Unit/Gm Pow 1 APPLN TOP BID UD Omeprazole (Prilosec) 40 Mg Capcr 40 MG PO BID, CAP Polyethylene Glycol-Propylene (Systane) 1 Renetta Renetta 1 DROPS OPR QID, #30 ML 5 Refills Potassium Chloride (Potassium Chloride Er) 10 Meq Cap 20 MEQ PO BID, #120 Prednisolone Acetate (Ophth) (Pred Forte 1% Oph) 1 % Nicole 1 DROPS OPL QID, #5 ML Riboflavin (Riboflavin) 400 Mg Tab 1 TAB PO DAILY Ropinirole (Requip) 0.25 Mg Tab 0.25-0.5 MG PO HS PRN for RESTLESS LEGS, TAB Simvastatin (Zocor) 20 Mg Tab 20 MG PO HS, TAB Tiotropium [place] Monohydrate (Spiriva Respimat) 2.5 Mcg/Act Spr 2 PUFFS INH DAILY Tramadol HCl (Tramadol HCl) 50 Mg Tab 50 MG PO Q4-6HRS PRN for Pain, #100 Discontinued Medications: Citalopram Hydrobromide (Citalopram Hydrobromide) 20 Mg Tab 20 MG PO DAILY Prednisone (Prednisone) 5 Mg Tab 5 MG PO DAILY, #60 TAKE WITH A 10 MG TAB Prednisone Tab (Prednisone) 10 Mg Tab 10 MG PO DAILY, TAB Discharge Exam Review of Systems: Constitutional: No chills, No fever Eyes: No worsening of vision ENT: No nasal symptoms, No sore throat, No trouble swallowing Respiratory: + cough, + dyspnea on exertion, No dyspnea at rest Cardiovascular: No chest pain Abdomen: No constipation, No diarrhea, No nausea, No pain, No vomiting Musculoskeletal: No calf pain, No swelling Genitourinary - Female: No dysuria Neurologic: No vertigo Psychiatric: + anxiety Endocrine: + fatigue Hematologic / Lymphatic: No abnormal bleeding/bruising, No clotting problems Integumentary: No rash Physical Exam: General Appearance: WD/WN, no apparent distress Eyes: sclerae normal ENT: hearing grossly normal Neck: supple, no JVD, trachea midline Respiratory/Chest: no respiratory distress, no accessory muscle use, + crackles (minimal crackles in L base) Cardiovascular: regular rate, rhythm, no gallop, no murmur Abdomen / GI: normal bowel sounds, non tender, soft, + distended Extremities: no calf tenderness Neurologic/Psychiatric: alert Skin: normal color, warm/dry Hospital Course HOSPITAL ADMISSION: The patient is a 81-year-old female who is being directly admitted from her outpatient PCP office due to issues with persistent shortness of breath over the past 3 weeks. She had presented to the emergency department last evening, and was started on levofloxacin orally. She has had a Harpreet fundoplication, and most recently had surgery in August 2016 related to her diaphragm and then had developed bilateral pneumonia 2 days post procedure. She has chronically been on prednisone, and when her prednisone is tapered she begins to develop issues with shortness of breath she had an issue with intermittent right sided pleural effusion. She reportedly has gained about 30 pounds since surgery in August 2016 patient feels that her abdomen is larger than her baseline and her legs feel different likely retaining more fluid. HOSPITAL COURSE: SOB with Chronic R Pleural Effusion: Associated 30 lbs Weight Gain - Chronic Steroids vs Mild Overload vs Asthma vs Anxiety - CXR significant for persistent R pleural effusion, bibasilar airspace opacities likely atelectatic without evidence of acute failure -- Discussion with Dr. Clayton with concern for a pneumonitis so will continue Levaquin 500 mg po x 7 days that was prescribed when she presented to the ED prior to admission. -- Will defer further antibiotic treatment to PCP or Jaun See PA-C - she is afebrile without leukocytosis - Abdominal U/S completed which was largely unremarkable in regards to fluid accumulation as patient complaining of increased abdominal girth and facial puffiness that is more than likely steroid-induced. - Concern with symptoms of SOB may be anxiety driven with this additional weight gain and LVH all contributing to this chronic shortness of breath - Upon assessment patient is in no acute distress with unlabored breathing however does get UMANA. - Did continue home Lasix to help control fluid overload that may be contributing to respiratory symptoms - Home inhalers continued as previously prescribed but concern that patient may not be taking adequate inhales to allow these inhalers to be effective. -- Again will defer to Jaun See vs PCP for adjustments - Plan is to taper chronic prednisone use as this is largely the the cause of the weight gain - question of element of psychological/physiological dependence -- Prednisone 20 mg daily x 2 days then 15 mg x 3 days then 10 mg x 3 days then 5 mg x 3 days Acute on Chronic Diastolic CHF: - Instructed to continue a low sodium diet and monitor weight - Continued home Lasix to continue with fluid removal Anxiety: - Concern for a component of anxiety factoring into shortness of breath and therefore her medication was adjusted - Celexa has been increased to 40 mg daily - instructed to follow-up with doctor for therapeutic effect Disposition: - Patient has remained at baseline during admission. She did utilize CPAP/BiPAP at night that did help with restlessness but she maintained normal pulse oximetry. - She is active with home health services and PT/OT services. She is stable, afebrile, without leukocytosis, and without acute complaints and is optimal for discharge home. - Discussed with daughter Grisel who reports that she has a scheduled appointment with Jaun See PA-C tomorrow (10/26/16) and reports that she will make any further appointment follow-ups as she needs to make them around her work schedule. Did offer to assist with appointment establishment but will defer to vidya Recinos. Total Time Spent: Greater than 30 minutes This includes examination of the patient, discharge planning, medication reconciliation, and communication with other providers. Discharge Instructions Please refer to the electronic Patient Visit Report (Discharge Instructions) for additional information. Additional Copies To Michael De Souza M.D.; Jaun See PA-C
[2016-12-15] MEDS ORDERED: SENN8.6T7 PO (14:41)
[2016-12-15] MEDS ORDERED: TPRSR25 PO (14:41)
[2016-12-15] MEDS ORDERED: ULT50 PO (14:41)
[2016-12-15] MEDS ORDERED: FRCT/ PO (14:41)
[2016-12-15] MEDS ORDERED: LSX20 PO (14:41)
[2016-12-15] MEDS ORDERED: PRED10TA PO (14:41)
[2016-12-15] MEDS ORDERED: CLX40 PO (14:41)
[2016-12-15] MEDS ORDERED: BENZ100C7 PO (14:41)
[2016-12-15] MEDS ORDERED: GFNSR600 PO (14:41)
[2016-12-15] MEDS ORDERED: IPRA1AER2 INH (14:41)
[2016-12-15] MEDS ORDERED: POTA1CAP2 PO (14:41)
[2017-01-14] MEDS ORDERED: GABA-113 PO (15:58)
[2017-01-14] MEDS ORDERED: VTMD1000 PO (15:58)
[2017-01-25] MEDS ORDERED: NAPR375T3 PO (11:26)
[2017-01-28] MEDS ORDERED: FRRS300 PO (08:52)
[2017-01-28] MEDS ORDERED: LSX40 PO (08:52)
[2017-01-28] MEDS ORDERED: SPR25 PO (08:52)
[2017-01-28] MEDS ORDERED: PRD10 PO (08:52)
[2017-02-09] MEDS ORDERED: PRED20TA2 PO (11:35)
[2017-02-09] MEDS ORDERED: TRAM-10 PO (11:35)
[2017-02-09] MEDS ORDERED: TIOT1AER (11:35)
[2017-04-19] MEDS ORDERED: FERR324T PO (11:29)
[2017-04-21] MEDS ORDERED: CLX20 PO (11:07)
[2017-04-21] MEDS ORDERED: PRD10 PO (11:07)
== END 2016-10-25 14:08 | disposition home health service (06) | DRG 291 ==
LOC: C.MED 13:49
PROVIDERS: ADMIT Hospitalist; ATTEND Internal Medicine
DX: I50.33 Acute on chronic diastolic (congestive) heart failure (principal); J98.11 Atelectasis; J44.9 Chronic obstructive pulmonary disease, unspecified; Z98.1 Arthrodesis status; K21.9 Gastro-esophageal reflux disease without esophagitis; J98.6 Disorders of diaphragm; J45.909 Unspecified asthma, uncomplicated; E03.9 Hypothyroidism, unspecified; E78.00 Pure hypercholesterolemia, unspecified; I95.1 Orthostatic hypotension; E53.8 Deficiency of other specified B group vitamins; M19.90 Unspecified osteoarthritis, unspecified site; M79.7 Fibromyalgia; F32.9 Major depressive disorder, single episode, unspecified; K76.0 Fatty (change of) liver, not elsewhere classified; Z79.52 Long term (current) use of systemic steroids; K31.84 Gastroparesis; M54.9 Dorsalgia, unspecified; Z86.14 Personal history of Methicillin resistant Staphylococcus aureus infection; Z83.3 Family history of diabetes mellitus; Z96.659 Presence of unspecified artificial knee joint; Z85.850 Personal history of malignant neoplasm of thyroid; J18.9 Pneumonia, unspecified organism; R06.00 Dyspnea, unspecified

== ENCOUNTER → 2016-11-08 | Outpatient (CLI) | payer OTHER ==
[~2016-11-08] MED LIST changes: +BENZ100C7 PO; +BUTA1CAP17 PO; -CITA20TA4 PO; +CITA20TA9 PO; +CLX20 PO; +CLX40 PO; +DICL1GEL34 TD; +FERR324T PO; +FRRS300 PO; +FURO-85 PO; +GABA-113 PO; +GFNSR600 PO; +GUAI1TAB69 PO; +HYDR-3983 PO; +HYDR0.75 PO; +KFL/250 PO; -LEVO-366 PO; +LINA1CAP; +LINE600T5 PO; +LORA-741 PO; +LSX40 PO; +MCRK/10 PO; +MELA1TAB48 PO; +METH4PAK PO; +NAPR375T3 PO; +NUTR-31; +OMEP40CA41 PO; +OYST1TAB; +POTA1TAB97 PO; +PRD10 PO; -PRED-301 PO; +PRED20TA PO; +PRED20TA2 PO; +PSEU60TA80 PO; +Remove Lidoderm Patch; +SENN-65 PO; +SENN8.6T7 PO; +SPR25 PO; +SPRIN/30 INH; +TIOT1AER; +TORS20TA2 PO; +TPRSR25 PO; +TRAM-10 PO; +VTMD1000 PO
--- NOTE | 2016-11-08 10:33 | DIAGNOSTIC IMAGING REPORT ---
CHEST 2 VIEWS ROUTINE CLINICAL HISTORY: SOB dyspnea. Cough. COMPARISON STUDY: 10/21/2016 FINDINGS: Stable bilateral total shoulder arthroplasties. Unchanging low thoracic and upper lumbar fusion. Moderately progressive right pleural effusion. Unchanging left basilar atelectasis. IMPRESSION: Moderate increase in prominence of right pleural effusion. All remaining components of the study are unchanged Electronically signed by: Vignesh Kim M.D. 11/08/2016 10:31 AM Dictated Date/Time: 11/08/2016 10:30 AM
== END | disposition home or self-care (01) ==
LOC: C.RADBBURG 00:35
PROVIDERS: ATTEND Internal Medicine Pulmonary Disease
DX: R06.02 Shortness of breath (principal)

== ENCOUNTER 2016-11-11 14:09 | Inpatient (IN) | payer OTHER ==
[~2016-11-11] VITALS: Ht 157.5 cm; Wt 89.9 kg
[~2016-11-11 14:09] MED LIST changes: -BENZ100C7 PO; -BUTA1CAP17 PO; -CITA20TA9 PO; -CLX20 PO; -DICL1GEL34 TD; -FERR324T PO; -FRRS300 PO; -FURO-85 PO; -GABA-113 PO; -GFNSR600 PO; -GUAI1TAB69 PO; -HYDR-3983 PO; -HYDR0.75 PO; -KFL/250 PO; -LINA1CAP; -LINE600T5 PO; -LORA-741 PO; -LSX40 PO; -MCRK/10 PO; -MELA1TAB48 PO; -METH4PAK PO; -NAPR375T3 PO; -NUTR-31; -OMEP40CA41 PO; -OYST1TAB; -POTA1TAB97 PO; -PRD10 PO; -PRED20TA PO; -PRED20TA2 PO; -PSEU60TA80 PO; -Remove Lidoderm Patch; -SENN-65 PO; -SENN8.6T7 PO; -SPR25 PO; -SPRIN/30 INH; -TIOT1AER; -TORS20TA2 PO; -TPRSR25 PO; -TRAM-10 PO; -VTMD1000 PO
[2016-11-11] MEDS ORDERED: ALUMINUM/MAGNESIUM/SIMETH (MAALOX MAX) 30 ML UDC PO PRN (15:15)
[2016-11-11] MEDS ORDERED: ONDANSETRON INJ 2 MG/ML 2 ML VIAL IV PRN (15:15)
[2016-11-11] MEDS ORDERED: ACETAMINOPHEN 325 MG TAB PO PRN (15:15)
--- NOTE | 2016-11-11 16:03 | DIAGNOSTIC IMAGING REPORT ---
CHEST 2 VIEWS ROUTINE CLINICAL HISTORY: Shortness of breath and cough. COMPARISON STUDY: Chest CT October 20, 2016 and chest radiograph November 08, 2016. FINDINGS: Cervical spine fusion, bilateral shoulder arthroplasties and thoracolumbar spine fusion are incidentally noted. Mild cardiomegaly is unchanged. There is no radiographic evidence of pulmonary edema. No pneumothorax is present. Elevation of the right hemidiaphragm is unchanged. A small right pleural effusion is unchanged. Bibasilar opacities are unchanged. IMPRESSION: 1. No change in the small right pleural effusion since prior exam. Bibasilar opacities which favor atelectasis. An infectious process could appear similar although is considered less likely. 2. Mild cardiomegaly without evidence of pulmonary edema. Electronically signed by: Jake Lo M.D. 11/11/2016 4:02 PM Dictated Date/Time: 11/11/2016 4:00 PM
--- NOTE | 2016-11-11 16:26 | History and Physical ---
History & Physical Date & Time of Service: Nov 11, 2016 at 15:51 Chief Complaint: Dyspnea Primary Care Physician: Michael De Souza M.D. History of Present Illness Source: patient, family, clinic records, hospital records This patient is a 81-year-old female that was directly admitted to the hospital from her health careers instructor office with complaints of a productive cough and shortness of breath that has gotten progressively worse over the last 2 weeks. The patient was discharged from the hospital 2 weeks ago with a diagnosis of acute bronchitis and diastolic CHF. Shortly after discharge, the patient's symptoms started progressing. She denies any fever or chills. She denies any chest pain. No heart palpitations or dizziness. The patient saw her health careers instructor last week and was put on a course of Levaquin 750 mg. She had no improvement. She saw her health careers instructor again 3 days ago. She was put on clindamycin 300 mg every 6 hours. She has been taking this as directed with no improvement. Her last DuoNeb was last night. The patient is dependent on steroids. She was discharged from the hospital on prednisone 30 mg. She is try to taper this to 27.5 mg, and her symptoms got worse. Patient reports a weight gain of approximately 20 pounds in 2 weeks. This was measured at to doctor's offices. 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 Status: Chronic (5) Gastroesophageal reflux disease Status: Chronic GERD hx thyroid ca anxiety chronic pain Family History Diabetes mellitus FH: cancer FH: gallbladder disease FH: heart disease FH: lung disease Hypertension Kidney disease or stones Social History Smoking Status: Never Smoker Drug Use: none Marital Status: Housing status: lives with family Occupational Status: retired Immunizations History of Influenza Vaccine: N/A Influenza Vaccine Date: Jun 18, 2012 History of Tetanus Vaccine?: Yes Tetanus Immunization Date: Mar 18, 2004 History of Pneumococcal: Yes Pneumococcal Date: May 31, 2010 History of Hepatitis B Vaccine: No Multi-Drug Resistant Organisms History of MDRO: Yes Type of MDRO: MRSA Allergies Coded Allergies: Pneumococcal Vaccine (Verified Allergy, Severe, SHORTNESS OF BREATH, ) Erythromycin (Verified Allergy, Mild, RASH, 08/26/16) Adhesives (Verified Allergy, Unknown, TAPE-REDNESS, BLISTERS, 08/26/16) Metronidazole (Verified Allergy, Unknown, skin rash, 08/26/16) allergic to generic form Phenazopyridine (Verified Allergy, Unknown, abdominal pain/rash, 08/26/16) Polymyxin B (Verified Allergy, Unknown, 08/26/16) Salicylates (Verified Allergy, Unknown, pt states rash with ASA 325 but not ASA 81mg, 08/26/16) Sulfa Antibiotics (Verified Allergy, Unknown, "SULFA DRUGS" = RASH, ) Tetracycline (Verified Allergy, Unknown, RASH, 08/26/16) Morphine (Verified Adverse Reaction, Intermediate, urinary retention - oral morphine only, 08/26/16) Diltiazem (Verified Adverse Reaction, Mild, FLUID RETENTION, 08/26/16) Metoclopramide (Verified Adverse Reaction, Mild, TREMORS, 08/26/16) Bacitracin (Verified Adverse Reaction, Unknown, "MAKES IT WORSE"-OK IF NOT OTC MEDICATION, 08/26/16) OKAY IF NOT OVER THE COUNTER MEDICATION Home Medications Scheduled Calcium Carbonate (Calcium Carbonate), 1 TAB PO HS Cholecalciferol (Vitamin D-1000), 1,000 UNITS PO DAILY Citalopram (Citalopram Hydrobromide), 40 MG PO DAILY Cyanocobalamin (Vitamin B-12), 1,000 MCG PO DAILY Furosemide (Furosemide), 20 MG PO UD Gabapentin (Gabapentin), 300 MG PO DAILY@1200 Ketorolac Tromethamine (Ophth) (Ketorolac Tromethamine), 1 DROP OPL QID Levothyroxine Sodium (Levothyroxine Sodium), 88 MCG PO DAILY Lidocaine (Lidoderm Patch 5% Patch), 1 PATCH TOP DAILY Melatonin (Kp Melatonin), 1 TAB PO HS Midodrine Hcl (Midodrine Hcl), 1 TAB PO TID Nystatin (Topical) (Nystop), 1 APPLN TOP BID UD Omeprazole (Prilosec), 40 MG PO BID Polyethylene Glycol-Propylene (Systane), 1 DROPS OPR QID Potassium Chloride (Potassium Chloride Er), 20 MEQ PO BID Prednisolone Acetate (Ophth) (Pred Forte 1% Oph), 1 DROPS OPL QID Prednisone (Prednisone), 10 MG PO DAILY Riboflavin (Riboflavin), 1 TAB PO DAILY Simvastatin (Zocor), 20 MG PO HS Tiotropium [place] Monohydrate (Spiriva Respimat), 2 PUFFS INH DAILY Scheduled PRN Acetamin/Butalbital/Caffeine (Fioricet), 1 TAB PO Q4 PRN for Headache Acetaminophen (Tylenol Arthritis Ext Rel), 650 MG PO Q4H PRN for Pain Arformoterol Tartrate (Brovana), 15 MCG INH BID PRN for SOB/Wheezing Baclofen (Lioresal), 10 MG PO TID PRN for Muscle Spasms Chlorphenir/Hydrocod Polistir (Tussionex), 5 ML PO Q6 PRN for Cough Diclofenac Sod (Voltaren 1% Top Gel), 2 GM TOP QID PRN for Pain Ipratropium-Albuterol (Combivent Respimat), 1 PUFFS INH QID PRN for SOB/Wheezing Ipratropium-Albuterol (Duoneb), 1 TREATMENT INH Q4H PRN for SOB/Wheezing Linaclotide (Linzess), 1 CAP PO QAM PRN for GI Upset Ropinirole (Requip), 0.25-0.5 MG PO HS PRN for RESTLESS LEGS Tramadol HCl (Tramadol HCl), 50 MG PO Q4-6HRS PRN for Pain Review of Systems 10 system review performed and negative unless noted in HPI or below Physical Exam General Appearance: + mild distress (moderate respiratory stress) Head: normocephalic Eyes: EOMI Neck: no JVD Respiratory/Chest: + pertinent finding (coarse breath sounds diffusely. Rhonchi at the bases bilaterally. Mild wheeze noted throughout. Positive tachypnea.) Cardiovascular: + tachycardia (tachycardic in the 130s. Regular. No murmurs.) Abdomen/GI: normal bowel sounds, non tender, soft Extremities/Musculoskelatal: no calf tenderness, no pedal edema Neurologic/Psych: no motor/sensory deficits, oriented x 3 Skin: warm/dry Diagnostics Laboratory Results Results Past 24 Hours Test 11/11/16 15:12 Range/Units Impression Assessment and Plan 81-year-old female with a history of possibly mild asthma, chronic bronchitis. Has had multiple admissions for shortness of breath and cough. Also a history of diastolic heart failure with left ventricular hypertrophy EF preserved. Not responding to outpatient treatment. Shortness of breath, dyspnea on exertion with productive cough. Likely secondary to acute bronchitis. There also could be a component of decompensated diastolic CHF -Admit to medical floor -Duonebs every 4 hrs scheduled, every 2 hrs prn -solumedrol 40 mg q 12 hr -Should probably cover for hospital acquired infections pending CXR results. Will hold off until CXR is back -Pulmonary consult possible acute on chronic dCHF -check BNP -one time extra dose of Lasix 40 mg IV now -Continue lasix 40 mg daily-start tomorrow -strict I&O's -daily weights Hypothyroidism -continue levothyroxine sodium 88 g by mouth daily Hypercholesterolemia- -continue simvastatin 20 mg by mouth at bedtime. Orthostatic hypotension- -continue midodrine 3 times a day. Anxiety -Continue citalopram to 40 mg by mouth daily. DVT prophylaxis -Lovenox 40 mg subQ daily -TEDS, SCDs CODE STATUS -LEVEL I FULL CODE i personally examined pt and verified all alexander points w A [facility] PAC feeling sob - d/w micheline michel pa-c who had been seeing her in office - felt was infectious initially - then this has been treated, but still sob -w exam/xray findings/weight gain/edema - admitted w concern on chf vitals noted see EMR, pleasant but fatigued appearing, mildly tachypnic. lungs coarse b/l no r/r/w, bibasilar diminished air entry. no accessory muscles CXR, labs noted sob - ddx CHF vs bronchitis picture vs anxiety (or elements of all three) -check ABG -moving air well - will continue current home dosing of steroids; inflammatory markers and CXR (as well as recent courses of levaquin and clinda) suggest abx not warranted currently - continue to follow -follow for response w diuretic - however w BNP low, would hold off on further aggressive diuresis unless she shows marked improvement after lasix given tonight -low threshold for pulmonary eval Level of Care Med/Surg Resuscitation Status FULL RESUSCITATION VTE Prophylaxis VTE Risk Assessment Done? Y/N: Yes Risk Level: Low Given or contraindicated: Enoxaparin (Lovenox)SQ, T.E.D. Stockings, SCD's
[2016-11-11] MEDS ORDERED: NON-FORMULARY MEDICATION (Linaclotide (Linzess) 1 CAP) PO PRN (16:30)
[2016-11-11] MEDS ORDERED: METHYLPREDNISOLONE IV 40 MG in SYRINGE 0 ML IV SCH (16:30)
[2016-11-11] MEDS ORDERED: FUROSEMIDE INJ 40 MG in SYRINGE 0 ML IV SCH (16:45)
[2016-11-11 17:08] LABS: BASO % 0.3 %; BASO ABS # 0.04 K/uL (0-0.2); COMPLETE YES; EOS % 0.1 %; HEMATOCRIT 38.1 % (37-47); LYMPH % 8.2 %; LYMPH ABS # 1.12 K/uL (1.2-3.4); MEAN CELL VOLUME 89.2 fL (80-100); MEAN CORPUSCULAR HEMOGLOBIN 28.8 pg (25-34); MEAN CORPUSCULAR HGB CONC 32.3 g/dl (32-36); MEAN PLATELET VOLUME 9.2 fL (7.4-10.4); MONO % 3.3 %; NEUT % 84.1 %; PLATELET COUNT 255 K/uL (130-400); RED BLOOD COUNT 4.27 M/uL (4.2-5.4); WHITE BLOOD COUNT 13.73 K/uL (4.8-10.8)
[2016-11-11] MEDS: PrednisoLONE ACET 1% OP SUSP 5 ML BTL OPL SCH ×2 (17:24→20:06)
[2016-11-11] MEDS: MIDODRINE 2.5 MG TAB PO SCH (17:24)
[2016-11-11 17:34] LABS: BLOOD UREA NITROGEN 21 mg/dl (7-18); BUN/CREATININE RATIO 21.1 (10-20); CALCIUM 8.3 mg/dl (8.5-10.1); CARBON DIOXIDE 27 mmol/L (21-32); CHLORIDE 102 mmol/L (98-107); GLUCOSE 136 mg/dl (70-99); MAGNESIUM 2.3 mg/dl (1.8-2.4); POTASSIUM 4.5 mmol/L (3.5-5.1); SODIUM 139 mmol/L (136-145)
[2016-11-11 17:39] LABS: C-REACTIVE PROTEIN 3.23 mg/dl (0-0.29)
[2016-11-11 17:59] VITALS: BP 182/104; PULSE 98; O2SAT 96; Ht 157.5 cm; Wt 89.9 kg
[2016-11-11] MEDS ORDERED: PATIENT'S HEIGHT AND/OR WEIGHT NEEDED SCH (18:15)
[2016-11-11 18:41] LABS: INR 0.9 (0.9-1.1)
[2016-11-11] MEDS: KETOROLAC 0.5% OP SOLN 5 ML BTL OPL SCH ×2 (18:48→20:06)
[2016-11-11] MEDS ORDERED: COUGH DROP (SUGAR FREE) LOZ 24 LOZ/1 BOX PO PRN (19:00)
[2016-11-11 19:33] VITALS: PULSE 96; O2SAT 94
[2016-11-11] MEDS: ALBUT/IPRATROP 3MG/0.5MG NEB 3 ML VIAL INH SCH (19:33)
[2016-11-11] MEDS: TRAMADOL HCL 50 MG TAB PO PRN (20:03)
[2016-11-11] MEDS: PANTOprazole SOD 40 MG TAB PO SCH (20:04)
[2016-11-11] MEDS: POTASSIUM CHLORIDE 20 MEQ TABCR PO SCH (20:05)
[2016-11-11] MEDS: ENOXAPARIN 40 MG/0.4 ML SYR SQ SCH (20:09)
[2016-11-11 20:41] LABS: ARTERIAL BLD GAS O2 SATURATION 93.9 % (90-95); ARTERIAL BLOOD GAS BASE EXCESS 4.3 mEq/L (-9-1.8); ARTERIAL BLOOD GAS HCO3 27 mmol/L (19-24); ARTERIAL BLOOD GAS PO2 67 mm/Hg (80-95)
[2016-11-11 20:48] LABS: ALLEN TEST POS (POS); O2 ADMINISTRATION ROOM AIR
[2016-11-11 20:49] LABS: ARTERIAL BLOOD GAS pH 7.51 (7.35-7.45)
[2016-11-11 21:25] VITALS: BP 152/80; O2SAT 96
[2016-11-11] MEDS: SIMVASTATIN 20 MG TAB PO SCH (21:26)
[2016-11-11 23:50] VITALS: BP 168/97; PULSE 98; TEMP 36.8; O2SAT 94
[2016-11-12] VITALS (8 sets, daily range): BP systolic 153–171; BP diastolic 86–98; PULSE 95–106; TEMP 36.8–37.1; O2SAT 92–96
[2016-11-12] MEDS: LEVOTHYROXINE 88 MCG TAB PO SCH (06:10)
[2016-11-12] MEDS: PrednisoLONE ACET 1% OP SUSP 5 ML BTL OPL SCH ×4 (07:47→20:09)
[2016-11-12] MEDS: KETOROLAC 0.5% OP SOLN 5 ML BTL OPL SCH ×4 (07:48→20:10)
[2016-11-12] MEDS: TIOTROPIUM BROMIDE 5 PUFF/90 MCG INH INH SCH (07:49)
[2016-11-12] MEDS: FUROSEMIDE 40 MG TAB PO SCH (07:50)
[2016-11-12] MEDS: ROPINIROLE HCL 0.25 MG TAB PO PRN (07:50)
[2016-11-12] MEDS: BACLOFEN 10 MG TAB PO PRN (07:50)
[2016-11-12] MEDS: PANTOprazole SOD 40 MG TAB PO SCH ×2 (07:51→20:10)
[2016-11-12] MEDS: CYANOCOBALAMIN 500 MCG TAB (VIT B-12) PO SCH (07:51)
[2016-11-12] MEDS: CITALOPRAM 40 MG TAB PO SCH (07:51)
[2016-11-12] MEDS: POTASSIUM CHLORIDE 20 MEQ TABCR PO SCH ×2 (07:53→20:10)
[2016-11-12] MEDS: ALBUT/IPRATROP 3MG/0.5MG NEB 3 ML VIAL INH SCH ×4 (07:54→20:49)
[2016-11-12] MEDS ORDERED: PREDNISONE PO SCH ×2 (08:00)
[2016-11-12] MEDS: MIDODRINE 2.5 MG TAB PO SCH ×3 (08:00→16:00)
[2016-11-12] MEDS ORDERED: FUROSEMIDE 20 MG TAB PO SCH (09:00)
[2016-11-12 09:39] LABS: BUN/CREATININE RATIO 27.4 (10-20); CALCIUM 8.4 mg/dl (8.5-10.1); CREATININE 0.99 mg/dl (0.60-1.20); POTASSIUM 3.7 mmol/L (3.5-5.1)
[2016-11-12] MEDS: TRAMADOL HCL 50 MG TAB PO PRN (11:50)
[2016-11-12] MEDS: GABAPENTIN 300 MG CAP PO SCH (11:52)
[2016-11-12] MEDS ORDERED: FUROSEMIDE 40 MG/4 ML VIAL IV STA (13:50)
--- NOTE | 2016-11-12 14:14 | Progress Note ---
Subjective Subjective Date of Service: Nov 12, 2016. Pt evaluation today including: conversation w/ patient, conversation w/ family , physical exam, chart review, review of studies, conversation w/ fashion consultant ( michleine michel/Zi), review of inpatient medication list Problem List Medical Problems: (1) Cervical strain Status: Acute (2) Fall Status: Acute (3) Head injury Status: Acute (4) Head injury Status: Acute (5) Hip pain Status: Acute (6) Hypoxia Status: Acute (7) Pneumonia Status: Acute (8) Syncope Status: Acute (9) Traumatic compression fracture of third thoracic vertebra Status: Acute Review of Systems Constitutional: No fever ENT: No hearing loss Respiratory: + cough, + dyspnea on exertion, + shortness of breath, + sputum, + wheezing Cardiac: No chest pain Abdomen: No pain Female : No dysuria Neurologic: No memory loss Psychiatric: No depression symptoms Endo: + fatigue Physical Exam Vital Signs Vital Signs Past 24 Hours: Date Time Temp Pulse Resp B/P Pulse Ox O2 Delivery O2 Flow Rate FiO2 11/12/16 11:12 98 18 96 Nasal Cannula 2.0 11/12/16 08:00 93 Room Air 11/12/16 07:54 101 18 93 Room Air 11/12/16 07:47 36.8 95 20 171/98 92 Room Air 11/12/16 00:01 Room Air 11/11/16 23:50 36.8 98 20 168/97 94 Room Air 11/11/16 21:25 152/80 96 Room Air 11/11/16 19:33 96 18 94 Room Air 11/11/16 17:59 98 20 182/104 96 Room Air Physical Exam: General Appearance: WD/WN, no apparent distress Eyes: bilateral eyes normal inspection ENT: hearing grossly normal, pharynx normal Neck: supple, no JVD Respiratory/Chest: chest non-tender, + crackles Cardiovascular: regular rate, rhythm, no JVD Abdomen: non tender, no organomegaly Extremities: normal inspection Neurologic/Psychiatric: no motor/sensory deficits, alert Medications Medications: Current Inpatient Medications Medications (Trade) Dose Ordered Sig/Natasha Route Start Time Stop Time Status Last Admin Dose Admin Enoxaparin Sodium (Lovenox Inj) 40 mg Q24H SQ 11/11/16 20:00 12/11/16 19:59 11/11/16 20:09 40 MG Acetaminophen (Tylenol Tab) 650 mg Q4H PRN PO 11/11/16 15:15 12/11/16 15:14 11/11/16 18:56 650 MG Al Hydrox/Mg Hydrox/Simethicone (Maalox Max Susp) 15 ml Q4H PRN PO 11/11/16 15:15 12/11/16 15:14 Ondansetron HCl (Zofran Inj) 4 mg Q6H PRN IV 11/11/16 15:15 12/11/16 15:14 Albuterol/ Ipratropium (Duoneb) 3 ml QIDR INH 11/11/16 16:00 12/11/16 15:59 11/12/16 11:11 3 ML Acetaminophen/ Butalbital/ Caffeine (Fioricet Tab) 1 tab Q4 PRN PO 11/11/16 16:30 12/11/16 16:29 Baclofen (Lioresal Tab) 10 mg TID PRN PO 11/11/16 16:30 12/11/16 16:29 11/12/16 07:50 10 MG Citalopram Hydrobromide (celeXA TAB) 40 mg DAILY PO 11/12/16 08:00 12/12/16 07:59 11/12/16 07:51 40 MG Cyanocobalamin (Vitamin B-12 Tab) 1,000 mcg DAILY PO 11/12/16 08:00 12/12/16 07:59 11/12/16 07:51 1,000 MCG Gabapentin (Neurontin Cap) 300 mg DAILY@1200 PO 11/12/16 12:00 12/12/16 11:59 11/12/16 11:52 300 MG Ketorolac Tromethamine (Acular 0.5% Oph Soln) 1 drops QID OPL 11/11/16 17:00 12/11/16 16:59 11/12/16 11:52 1 DROPS Levothyroxine Sodium (Synthroid Tab) 88 mcg DAILYBB PO 11/12/16 06:30 12/12/16 06:29 11/12/16 06:10 88 MCG Midodrine (Proamatine Tab) 2.5 mg TID@0800,1200,1600 PO 11/11/16 16:48 12/11/16 16:47 11/11/16 17:24 2.5 MG Prednisolone Acetate (Pred Forte 1% Oph Susp) 1 drops QID OPL 11/11/16 17:00 12/11/16 16:59 11/12/16 11:52 1 DROPS Ropinirole HCl (Requip Tab) 0.5 mg HS PRN PO 11/11/16 16:30 12/11/16 16:29 11/12/16 07:50 0.5 MG Simvastatin (Zocor Tab) 20 mg HS PO 11/11/16 22:00 12/11/16 21:59 11/11/16 21:26 20 MG Pantoprazole Sodium (Protonix Tab) 40 mg BID PO 11/11/16 20:00 12/11/16 19:59 11/12/16 07:51 40 MG Potassium Chloride (Klor-Con Tab) 20 meq BID PO 11/11/16 20:00 12/11/16 19:59 11/12/16 07:53 20 MEQ Tiotropium [place] (Spiriva Handihaler Inhaler) 1 puff DAILY INH 11/12/16 08:00 12/12/16 07:59 11/12/16 07:49 1 PUFF Miscellaneous Information (Order Awaiting Action) 1 ea QS N/A 11/12/16 00:00 12/12/16 00:00 Menthol (Nice Jass) 1 jass PRN PRN PO 11/11/16 19:00 12/11/16 18:59 11/11/16 20:02 1 JASS Furosemide (Lasix Tab) 40 mg QAM PO 11/12/16 08:00 12/12/16 07:59 11/12/16 07:50 40 MG Tramadol HCl (Ultram Tab) 50 mg Q4H PRN PO 11/11/16 19:15 12/11/16 19:14 11/12/16 11:50 50 MG Prednisone 20 mg/ Prednisone 7.5 mg 27.5 mg QAM PO 11/12/16 08:00 12/12/16 07:59 Future Hold 11/12/16 07:51 27.5 MG Methylprednisolone Sodium Succinate 40 mg/Syringe 0.64 ml @ 1.5 mls/min Q8H IV 11/12/16 14:00 12/12/16 13:59 Azithromycin 500 mg/Dextrose 255 ml @ 125 mls/hr DAILY@1500 IV 11/12/16 15:00 11/19/16 14:59 Furosemide/Syringe (Lasix Inj/ Syringe) 4 ml @ 4 mls/min NOW ONCE IV 11/12/16 14:30 11/12/16 14:31 Laboratory Data Labs: Last 24 Hours Test 11/11/16 17:00 11/11/16 20:25 11/12/16 08:25 White Blood Count 13.73 K/uL Red Blood Count 4.27 M/uL Hemoglobin 12.3 g/dL Hematocrit 38.1 % Mean Corpuscular Volume 89.2 fL Mean Corpuscular Hemoglobin 28.8 pg Mean Corpuscular Hemoglobin Concent 32.3 g/dl Platelet Count 255 K/uL Mean Platelet Volume 9.2 fL Neutrophils (%) (Auto) 84.1 % Lymphocytes (%) (Auto) 8.2 % Monocytes (%) (Auto) 3.3 % Eosinophils (%) (Auto) 0.1 % Basophils (%) (Auto) 0.3 % Neutrophils # (Auto) 11.56 K/uL Lymphocytes # (Auto) 1.12 K/uL Monocytes # (Auto) 0.45 K/uL Eosinophils # (Auto) 0.01 K/uL Basophils # (Auto) 0.04 K/uL RDW Standard Deviation 56.6 fL RDW Coefficient of Variation 17.4 % Immature Granulocyte % (Auto) 4.0 % Immature Granulocyte # (Auto) 0.55 K/uL Prothrombin Time 10.0 SECONDS Prothromb Time International Ratio 0.9 Activated Partial Thromboplast Time 26.1 SECONDS Partial Thromboplastin Ratio 1.0 Sodium Level 139 mmol/L 134 mmol/L Potassium Level 4.5 mmol/L 3.7 mmol/L Chloride Level 102 mmol/L 95 mmol/L Carbon Dioxide Level 27 mmol/L 32 mmol/L Anion Gap 10.0 mmol/L 7.0 mmol/L Blood Urea Nitrogen 21 mg/dl 27 mg/dl Creatinine 1.00 mg/dl 0.99 mg/dl Estimated GFR () 62.1 62.8 Estimated GFR (Non- 53.5 54.2 BUN/Creatinine Ratio 21.1 27.4 Random Glucose 136 mg/dl 110 mg/dl Calcium Level 8.3 mg/dl 8.4 mg/dl Magnesium Level 2.3 mg/dl C-Reactive Protein 3.23 mg/dl Pro-B-Type Natriuretic Peptide 92 pg/ml Procalcitonin < 0.05 ng/mL Arterial Blood pH 7.51 Arterial Blood Partial Pressure CO2 34 mmHg Arterial Blood Partial Pressure O2 67 mm/Hg Arterial Blood HCO3 27 mmol/L Arterial Blood Oxygen Saturation 93.9 % Arterial Blood Base Excess 4.3 mEq/L Arterial Blood Gas Delivery ROOM AIR John Test POS Est Creatinine Clear Calc Drug Dose 49.0 ml/min Assessment and Plan 81-year-old female with a history of possibly mild asthma, chronic bronchitis. Has had multiple admissions for shortness of breath and cough. Also a history of diastolic heart failure with left ventricular hypertrophy EF preserved. Not responding to outpatient treatment. Shortness of breath, dyspnea on exertion with productive cough. Likely secondary to acute bronchitis. There also could be a component of decompensated diastolic CHF medical floor cont Duonebs every 4 hrs scheduled, every 2 hrs prn solumedrol 40 mg q 8 hr Azithromycin IV possible acute on chronic dCHF given a dose of Lasix 40 mg IV now strict I&O's daily weights Hypothyroidism continue levothyroxine sodium 88 g by mouth daily Hypercholesterolemia- continue simvastatin 20 mg by mouth at bedtime. Orthostatic hypotension- continue midodrine 3 times a day. Anxiety Continue citalopram to 40 mg by mouth daily. DVT prophylaxis Lovenox 40 mg subQ daily TEDS, SCDs FULL CODE
[2016-11-12] MEDS ORDERED: NURSING VERBAL MED ORDER ONE (14:15)
[2016-11-12] MEDS ORDERED: FUROSEMIDE INJ 40 MG in SYRINGE 0 ML IV ONE (14:30)
[2016-11-12] MEDS: GUAIFENESIN 600 MG TABCR PO SCH ×2 (15:19→20:11)
[2016-11-12] MEDS: METHYLPREDNISOLONE IV 40 MG in SYRINGE 0 ML IV SCH ×2 (15:20→20:11)
[2016-11-12] MEDS: AZITHROMYCIN IV 500 MG in DEXTROSE 5% 250ML 250 ML IV SCH (15:20)
[2016-11-12] MEDS: ENOXAPARIN 40 MG/0.4 ML SYR SQ SCH (20:11)
[2016-11-12] MEDS: SIMVASTATIN 20 MG TAB PO SCH (20:11)
[2016-11-13] VITALS (9 sets, daily range): BP systolic 170–172; BP diastolic 83–91; PULSE 90–116; TEMP 36.4–37.2; O2SAT 93–97
[2016-11-13] MEDS: LEVOTHYROXINE 88 MCG TAB PO SCH (06:19)
[2016-11-13] MEDS: METHYLPREDNISOLONE IV 40 MG in SYRINGE 0 ML IV SCH ×2 (06:19→17:57)
[2016-11-13] MEDS: MIDODRINE 2.5 MG TAB PO SCH ×3 (08:00→15:46)
[2016-11-13] MEDS: PrednisoLONE ACET 1% OP SUSP 5 ML BTL OPL SCH ×4 (08:17→20:47)
[2016-11-13] MEDS: KETOROLAC 0.5% OP SOLN 5 ML BTL OPL SCH ×4 (08:17→20:47)
[2016-11-13] MEDS: TIOTROPIUM BROMIDE 5 PUFF/90 MCG INH INH SCH (08:17)
[2016-11-13] MEDS: ALBUT/IPRATROP 3MG/0.5MG NEB 3 ML VIAL INH SCH ×4 (08:17→19:05)
[2016-11-13] MEDS: FUROSEMIDE 40 MG TAB PO SCH (08:20)
[2016-11-13] MEDS: PANTOprazole SOD 40 MG TAB PO SCH ×2 (08:20→20:48)
[2016-11-13] MEDS: BACLOFEN 10 MG TAB PO PRN (08:20)
[2016-11-13] MEDS: GUAIFENESIN 600 MG TABCR PO SCH ×2 (08:20→20:48)
[2016-11-13] MEDS: CYANOCOBALAMIN 500 MCG TAB (VIT B-12) PO SCH (08:20)
[2016-11-13] MEDS: ROPINIROLE HCL 0.25 MG TAB PO PRN (08:20)
[2016-11-13] MEDS: CITALOPRAM 40 MG TAB PO SCH (08:20)
[2016-11-13] MEDS: POTASSIUM CHLORIDE 20 MEQ TABCR PO SCH ×2 (08:22→20:48)
[2016-11-13 08:36] LABS: BUN/CREATININE RATIO 27.4 (10-20); CALCIUM 8.7 mg/dl (8.5-10.1); CREATININE 0.94 mg/dl (0.60-1.20); POTASSIUM 3.8 mmol/L (3.5-5.1)
[2016-11-13] MEDS ORDERED: FUROSEMIDE 40 MG/4 ML VIAL IV STA (09:54)
[2016-11-13] MEDS ORDERED: FUROSEMIDE INJ 40 MG in SYRINGE 0 ML IV ONE (10:30)
--- NOTE | 2016-11-13 11:30 | Progress Note ---
Subjective Subjective Date of Service: Nov 13, 2016. Pt evaluation today including: conversation w/ patient, physical exam, chart review, review of studies, review of inpatient medication list Problem List Medical Problems: (1) Cervical strain Status: Acute (2) Fall Status: Acute (3) Head injury Status: Acute (4) Head injury Status: Acute (5) Hip pain Status: Acute (6) Hypoxia Status: Acute (7) Pneumonia Status: Acute (8) Syncope Status: Acute (9) Traumatic compression fracture of third thoracic vertebra Status: Acute Review of Systems Constitutional: No fever ENT: No hearing loss Respiratory: No cough Cardiac: No chest pain Abdomen: No pain Female : No dysuria Neurologic: No memory loss Psychiatric: No depression symptoms Endo: No fatigue Physical Exam Vital Signs Vital Signs Past 24 Hours: Date Time Temp Pulse Resp B/P Pulse Ox O2 Delivery O2 Flow Rate FiO2 11/13/16 08:17 102 18 95 Nasal Cannula 2.0 11/13/16 08:00 95 Room Air 11/13/16 07:30 36.7 90 20 170/91 95 Nasal Cannula 2.0 11/13/16 00:12 36.4 99 18 172/85 95 Nasal Cannula 2.0 11/13/16 00:01 Nasal Cannula 2.0 11/12/16 20:49 106 18 95 Room Air 11/12/16 20:00 Nasal Cannula 2.0 11/12/16 16:00 93 Room Air 11/12/16 15:43 102 18 93 Room Air 11/12/16 15:28 37.1 105 22 153/86 94 Nasal Cannula 1.0 Physical Exam: General Appearance: WD/WN, no apparent distress Eyes: bilateral eyes normal inspection ENT: hearing grossly normal, pharynx normal Neck: supple, no JVD Respiratory/Chest: chest non-tender, + crackles Cardiovascular: regular rate, rhythm, no gallop Abdomen: non tender, soft Extremities: normal inspection, no pedal edema Neurologic/Psychiatric: no motor/sensory deficits, normal mood/affect Skin: normal color, warm/dry Medications Medications: Current Inpatient Medications Medications (Trade) Dose Ordered Sig/Natasha Route Start Time Stop Time Status Last Admin Dose Admin Enoxaparin Sodium (Lovenox Inj) 40 mg Q24H SQ 11/11/16 20:00 12/11/16 19:59 11/12/16 20:11 40 MG Acetaminophen (Tylenol Tab) 650 mg Q4H PRN PO 11/11/16 15:15 12/11/16 15:14 11/11/16 18:56 650 MG Al Hydrox/Mg Hydrox/Simethicone (Maalox Max Susp) 15 ml Q4H PRN PO 11/11/16 15:15 12/11/16 15:14 Ondansetron HCl (Zofran Inj) 4 mg Q6H PRN IV 11/11/16 15:15 12/11/16 15:14 Albuterol/ Ipratropium (Duoneb) 3 ml QIDR INH 11/11/16 16:00 12/11/16 15:59 11/13/16 08:17 3 ML Acetaminophen/ Butalbital/ Caffeine (Fioricet Tab) 1 tab Q4 PRN PO 11/11/16 16:30 12/11/16 16:29 Baclofen (Lioresal Tab) 10 mg TID PRN PO 11/11/16 16:30 12/11/16 16:29 11/13/16 08:20 10 MG Citalopram Hydrobromide (celeXA TAB) 40 mg DAILY PO 11/12/16 08:00 12/12/16 07:59 11/13/16 08:20 40 MG Cyanocobalamin (Vitamin B-12 Tab) 1,000 mcg DAILY PO 11/12/16 08:00 12/12/16 07:59 11/13/16 08:20 1,000 MCG Gabapentin (Neurontin Cap) 300 mg DAILY@1200 PO 11/12/16 12:00 12/12/16 11:59 11/12/16 11:52 300 MG Ketorolac Tromethamine (Acular 0.5% Oph Soln) 1 drops QID OPL 11/11/16 17:00 12/11/16 16:59 11/13/16 08:17 1 DROPS Levothyroxine Sodium (Synthroid Tab) 88 mcg DAILYBB PO 11/12/16 06:30 12/12/16 06:29 11/13/16 06:19 88 MCG Midodrine (Proamatine Tab) 2.5 mg TID@0800,1200,1600 PO 11/11/16 16:48 12/11/16 16:47 11/11/16 17:24 2.5 MG Prednisolone Acetate (Pred Forte 1% Oph Susp) 1 drops QID OPL 11/11/16 17:00 12/11/16 16:59 11/13/16 08:17 1 DROPS Ropinirole HCl (Requip Tab) 0.5 mg HS PRN PO 11/11/16 16:30 12/11/16 16:29 11/13/16 08:20 0.5 MG Simvastatin (Zocor Tab) 20 mg HS PO 11/11/16 22:00 12/11/16 21:59 11/12/16 20:11 20 MG Pantoprazole Sodium (Protonix Tab) 40 mg BID PO 11/11/16 20:00 12/11/16 19:59 11/13/16 08:20 40 MG Potassium Chloride (Klor-Con Tab) 20 meq BID PO 11/11/16 20:00 12/11/16 19:59 11/13/16 08:22 20 MEQ Tiotropium [place] (Spiriva Handihaler Inhaler) 1 puff DAILY INH 11/12/16 08:00 12/12/16 07:59 11/13/16 08:17 1 PUFF Miscellaneous Information (Order Awaiting Action) 1 ea QS N/A 11/12/16 00:00 12/12/16 00:00 Menthol (Nice Alexis) 1 alexis PRN PRN PO 11/11/16 19:00 12/11/16 18:59 11/11/16 20:02 1 ALEXIS Furosemide (Lasix Tab) 40 mg QAM PO 11/12/16 08:00 12/12/16 07:59 11/13/16 08:20 40 MG Tramadol HCl (Ultram Tab) 50 mg Q4H PRN PO 11/11/16 19:15 12/11/16 19:14 11/12/16 11:50 50 MG Prednisone 20 mg/ Prednisone 7.5 mg 27.5 mg QAM PO 11/12/16 08:00 12/12/16 07:59 Future Hold 11/12/16 07:51 27.5 MG Azithromycin/ Dextrose (Zithromax IV/D5 250ml) 255 ml @ 125 mls/hr DAILY@1500 IV 11/12/16 15:00 11/19/16 14:59 11/12/16 15:20 125 MLS/HR Guaifenesin 600 mg 600 mg BID PO 11/12/16 14:29 12/12/16 14:28 11/13/16 08:20 600 MG Methylprednisolone Sodium Succinate/ Syringe (Solu-Medrol IV/ Syringe) 0.64 ml @ 1.5 mls/min Q12H IV 11/13/16 18:00 12/13/16 17:59 Laboratory Data Labs: Last 24 Hours Test 11/13/16 07:53 Sodium Level 134 mmol/L Potassium Level 3.8 mmol/L Chloride Level 96 mmol/L Carbon Dioxide Level 31 mmol/L Anion Gap 7.0 mmol/L Blood Urea Nitrogen 26 mg/dl Creatinine 0.94 mg/dl Est Creatinine Clear Calc Drug Dose 51.7 ml/min Estimated GFR () 66.9 Estimated GFR (Non- 57.7 BUN/Creatinine Ratio 27.4 Random Glucose 129 mg/dl Calcium Level 8.7 mg/dl Assessment and Plan 81-year-old female with a history of possibly mild asthma, chronic bronchitis. Has had multiple admissions for shortness of breath and cough. Also a history of diastolic heart failure with left ventricular hypertrophy EF preserved. Not responding to outpatient treatment. Shortness of breath, dyspnea on exertion with productive cough. Likely secondary to acute bronchitis. There also could be a component of decompensated diastolic CHF medical floor cont Duonebs every 4 hrs scheduled, every 2 hrs prn changed to solumedrol 40 mg q 12 hr Azithromycin IV possible acute on chronic dCHF given a dose of Lasix 40 mg IV now, again strict I&O's but patient is incontinent daily weights Hypothyroidism continue levothyroxine sodium 88 g by mouth daily Hypercholesterolemia- continue simvastatin 20 mg by mouth at bedtime. Orthostatic hypotension- holding midodrine 3 times a day due to significant elevated BP. Anxiety Continue citalopram to 40 mg by mouth daily. DVT prophylaxis Lovenox 40 mg subQ daily TEDS, SCDs FULL CODE
[2016-11-13] MEDS: GABAPENTIN 300 MG CAP PO SCH (11:56)
[2016-11-13] MEDS: AZITHROMYCIN IV 500 MG in DEXTROSE 5% 250ML 250 ML IV SCH (15:44)
[2016-11-13] MEDS: ENOXAPARIN 40 MG/0.4 ML SYR SQ SCH (20:46)
[2016-11-13] MEDS: SIMVASTATIN 20 MG TAB PO SCH (22:05)
[2016-11-14] VITALS (8 sets, daily range): BP systolic 164–166; BP diastolic 89–90; PULSE 95–103; TEMP 36.8–37.1; O2SAT 93–95
[2016-11-14] MEDS: LEVOTHYROXINE 88 MCG TAB PO SCH (06:23)
[2016-11-14] MEDS: METHYLPREDNISOLONE IV 40 MG in SYRINGE 0 ML IV SCH ×2 (06:24→18:55)
[2016-11-14 06:42] LABS: MEAN CELL VOLUME 88.5 fL (80-100); MEAN CORPUSCULAR HEMOGLOBIN 29.2 pg (25-34); MEAN CORPUSCULAR HGB CONC 33.1 g/dl (32-36); MEAN PLATELET VOLUME 9.4 fL (7.4-10.4); PLATELET COUNT 272 K/uL (130-400); RED BLOOD COUNT 4.07 M/uL (4.2-5.4); WHITE BLOOD COUNT 13.45 K/uL (4.8-10.8)
[2016-11-14 07:15] LABS: BUN/CREATININE RATIO 29.1 (10-20); CALCIUM 8.7 mg/dl (8.5-10.1); POTASSIUM 3.9 mmol/L (3.5-5.1)
[2016-11-14] MEDS: ROPINIROLE HCL 0.25 MG TAB PO PRN (07:51)
[2016-11-14] MEDS: PANTOprazole SOD 40 MG TAB PO SCH ×2 (07:51→22:24)
[2016-11-14] MEDS: FUROSEMIDE 40 MG TAB PO SCH (07:51)
[2016-11-14] MEDS: GABAPENTIN 300 MG CAP PO SCH (07:51)
[2016-11-14] MEDS: CITALOPRAM 40 MG TAB PO SCH (07:52)
[2016-11-14] MEDS: BACLOFEN 10 MG TAB PO PRN (07:52)
[2016-11-14] MEDS: CYANOCOBALAMIN 500 MCG TAB (VIT B-12) PO SCH (07:52)
[2016-11-14] MEDS: ALBUT/IPRATROP 3MG/0.5MG NEB 3 ML VIAL INH SCH ×4 (07:52→19:27)
[2016-11-14] MEDS: PrednisoLONE ACET 1% OP SUSP 5 ML BTL OPL SCH ×4 (07:53→22:21)
[2016-11-14] MEDS: TIOTROPIUM BROMIDE 5 PUFF/90 MCG INH INH SCH (07:53)
[2016-11-14] MEDS: KETOROLAC 0.5% OP SOLN 5 ML BTL OPL SCH ×4 (07:53→22:21)
[2016-11-14] MEDS: GUAIFENESIN 600 MG TABCR PO SCH ×2 (07:54→22:24)
[2016-11-14] MEDS: POTASSIUM CHLORIDE 20 MEQ TABCR PO SCH ×2 (07:54→22:22)
[2016-11-14] MEDS: MIDODRINE 2.5 MG TAB PO SCH ×2 (07:54→11:38)
[2016-11-14] MEDS ORDERED: OPTIRAY 320 IV PRN (12:00)
--- NOTE | 2016-11-14 15:25 | DIAGNOSTIC IMAGING REPORT ---
CT ANGIOGRAM OF THE CHEST CLINICAL HISTORY: Shortness of breath, possible pulmonary embolism COMPARISON STUDY: October 20, 2016 TECHNIQUE: Following the IV administration of 93 mL of Optiray-320, CT angiogram of the thorax was performed from the thoracic inlet to the lung bases utilizing the pulmonary embolus protocol. Images are reviewed in the axial, sagittal, and coronal planes. IV contrast was administered without complication. MIP imaging was performed. CT DOSE: 1065.22 mGy.cm FINDINGS: No pathologically enlarged axillary mediastinal or hilar lymph nodes were visualized. There was no evidence of thoracic aortic dilatation. There were no pulmonary artery filling defects to indicate acute pulmonary embolism. There is a small right pleural effusion There are bibasal or dependent airspace opacities, likely atelectatic. There are right middle lobe atelectatic changes. There is lower lobe bronchial wall thickening. There is a stable 4 mm right upper lobe pulmonary nodule as visualized in image #[id number] there is mosaic attenuation the lungs likely secondary to air-trapping. The 6 mm left lower lobe pulmonary nodule described in the prior study is obscured due to the adjacent parenchymal disease There is artifact secondary to bilateral shoulder arthroplasties and thoracolumbar spinal fusion IMPRESSION: 1. No CT evidence of acute pulmonary embolism 2. Small right pleural effusion 3. Right middle lobe and bilateral lower lobe airspace opacities, likely atelectatic although an inflammatory process could appear similar 4. Stable 4 mm right upper lobe pulmonary nodule 5. Mild mosaic attenuation of the lungs likely representing air trapping 6. Lower lobe bronchial wall thickening Electronically signed by: Edenilson Barrett M.D. 11/14/2016 3:24 PM Dictated Date/Time: 11/14/2016 3:17 PM
--- NOTE | 2016-11-14 15:27 | DIAGNOSTIC IMAGING REPORT ---
CT abdomen ABD WITH IV CONTRAST ONLY (CT) CLINICAL HISTORY: r/o infectious etiology infection TECHNIQUE: Transaxial acquisition with multi axial reformatted images COMPARISON STUDY: 05/09/2016. FINDINGS: Small right effusion. Mild bibasilar atelectatic and to lesser extent left basilar infiltrative change. Fatty infiltration of liver. Gallbladder is negative for distention. Kidneys are negative for hydronephrosis. Multiple surgical clips in right paravertebral line are present. Pancreas is uniform. Bowel pattern is considered nonobstructive. Considerable degenerative and postoperative changes of the spine. IMPRESSION: 1. Small right pleural effusion. Area of 2. Small bibasal left and to lesser extent right basilar infiltrative/atelectatic changes. 3. Stable postoperative changes of the spine. 4. Fatty infiltration of liver. 5. Nonobstructive bowel pattern. Electronically signed by: Vignesh Kim M.D. 11/14/2016 3:25 PM Dictated Date/Time: 11/14/2016 3:19 PM
--- NOTE | 2016-11-14 16:08 | Hospitalist Progress Note ---
Hospitalist Progress Note Date of Service Nov 14, 2016. Subjective Pt evaluation today including: conversation w/ patient, physical exam, chart review, lab review, review of studies, review of inpatient medication list Patient had no acute issues overnight Continue SOB, states she has had minimal improvement with use of O2 States she has had abdominal pain Denies any chest pain, Constitutional: No fever Eyes: No worsening of vision ENT: No hearing loss, No nasal symptoms, No sore throat Respiratory: + cough, + shortness of breath, + sputum Cardiovascular: No chest pain, No edema Abdomen: + pain, No constipation, No diarrhea, No nausea, No vomiting Musculoskeletal: No joint pain Female : No dysuria Endo: No fatigue Skin: No rash Medications Current Inpatient Medications Medications (Trade) Dose Ordered Sig/Natasha Route Start Time Stop Time Status Last Admin Dose Admin Enoxaparin Sodium (Lovenox Inj) 40 mg Q24H SQ 11/11/16 20:00 12/11/16 19:59 11/13/16 20:46 40 MG Acetaminophen (Tylenol Tab) 650 mg Q4H PRN PO 11/11/16 15:15 12/11/16 15:14 11/11/16 18:56 650 MG Al Hydrox/Mg Hydrox/Simethicone (Maalox Max Susp) 15 ml Q4H PRN PO 11/11/16 15:15 12/11/16 15:14 Ondansetron HCl (Zofran Inj) 4 mg Q6H PRN IV 11/11/16 15:15 12/11/16 15:14 Albuterol/ Ipratropium (Duoneb) 3 ml QIDR INH 11/11/16 16:00 12/11/16 15:59 11/14/16 11:20 3 ML Acetaminophen/ Butalbital/ Caffeine (Fioricet Tab) 1 tab Q4 PRN PO 11/11/16 16:30 12/11/16 16:29 Baclofen (Lioresal Tab) 10 mg TID PRN PO 11/11/16 16:30 12/11/16 16:29 11/14/16 07:52 10 MG Citalopram Hydrobromide (celeXA TAB) 40 mg DAILY PO 11/12/16 08:00 12/12/16 07:59 11/14/16 07:52 40 MG Cyanocobalamin (Vitamin B-12 Tab) 1,000 mcg DAILY PO 11/12/16 08:00 12/12/16 07:59 11/14/16 07:52 1,000 MCG Gabapentin (Neurontin Cap) 300 mg DAILY@1200 PO 11/12/16 12:00 12/12/16 11:59 11/14/16 07:51 300 MG Ketorolac Tromethamine (Acular 0.5% Oph Soln) 1 drops QID OPL 11/11/16 17:00 12/11/16 16:59 11/14/16 11:38 1 DROPS Levothyroxine Sodium (Synthroid Tab) 88 mcg DAILYBB PO 11/12/16 06:30 12/12/16 06:29 11/14/16 06:23 88 MCG Midodrine (Proamatine Tab) 2.5 mg TID@0800,1200,1600 PO 11/11/16 16:48 12/11/16 16:47 11/13/16 15:46 2.5 MG Prednisolone Acetate (Pred Forte 1% Oph Susp) 1 drops QID OPL 11/11/16 17:00 12/11/16 16:59 11/14/16 11:38 1 DROPS Ropinirole HCl (Requip Tab) 0.5 mg HS PRN PO 11/11/16 16:30 12/11/16 16:29 11/14/16 07:51 0.5 MG Simvastatin (Zocor Tab) 20 mg HS PO 11/11/16 22:00 12/11/16 21:59 11/13/16 22:05 20 MG Pantoprazole Sodium (Protonix Tab) 40 mg BID PO 11/11/16 20:00 12/11/16 19:59 11/14/16 07:51 40 MG Potassium Chloride (Klor-Con Tab) 20 meq BID PO 11/11/16 20:00 12/11/16 19:59 11/14/16 07:54 20 MEQ Tiotropium [place] (Spiriva Handihaler Inhaler) 1 puff DAILY INH 11/12/16 08:00 12/12/16 07:59 11/14/16 07:53 1 PUFF Miscellaneous Information (Order Awaiting Action) 1 ea QS N/A 11/12/16 00:00 12/12/16 00:00 Menthol (Nice Jass) 1 jass PRN PRN PO 11/11/16 19:00 12/11/16 18:59 11/11/16 20:02 1 JASS Furosemide (Lasix Tab) 40 mg QAM PO 11/12/16 08:00 12/12/16 07:59 11/14/16 07:51 40 MG Tramadol HCl (Ultram Tab) 50 mg Q4H PRN PO 11/11/16 19:15 12/11/16 19:14 11/12/16 11:50 50 MG Prednisone 20 mg/ Prednisone 7.5 mg 27.5 mg QAM PO 11/12/16 08:00 12/12/16 07:59 Future Hold 11/12/16 07:51 27.5 MG Azithromycin/ Dextrose (Zithromax IV/D5 250ml) 255 ml @ 125 mls/hr DAILY@1500 IV 11/12/16 15:00 11/19/16 14:59 11/13/16 15:44 125 MLS/HR Guaifenesin 600 mg 600 mg BID PO 11/12/16 14:29 12/12/16 14:28 11/14/16 07:54 600 MG Methylprednisolone Sodium Succinate/ Syringe (Solu-Medrol IV/ Syringe) 0.64 ml @ 1.5 mls/min Q12H IV 11/13/16 18:00 12/13/16 17:59 11/14/16 06:24 1.5 MLS/MIN Objective Vital Signs Date Time Temp Pulse Resp B/P Pulse Ox O2 Delivery O2 Flow Rate FiO2 11/14/16 11:20 96 20 95 Nasal Cannula 2.0 11/14/16 08:00 95 Room Air 11/14/16 07:52 102 20 93 Nasal Cannula 2.0 11/14/16 07:30 37.1 95 20 164/90 95 Nasal Cannula 1.0 11/14/16 00:20 36.8 99 18 166/89 94 Nasal Cannula 2.0 11/14/16 00:00 94 Nasal Cannula 2.0 11/13/16 19:10 105 20 96 Nasal Cannula 2.0 11/13/16 15:47 37.2 116 20 170/83 93 Nasal Cannula 1.0 11/13/16 15:45 93 Room Air 1.0 11/13/16 15:06 106 18 97 Nasal Cannula 1.0 Physical Exam General Appearance: WD/WN, no apparent distress Eyes: normal inspection ENT: normal ENT inspection Neck: supple Respiratory/Chest: chest non-tender, lungs clear Cardiovascular: regular rate, rhythm, no edema Abdomen: normal bowel sounds, non tender Extremities: normal range of motion, non-tender Neurologic/Psychiatric: no motor/sensory deficits, oriented x 3 Skin: normal color, warm/dry Lymphatic: no adenopathy Laboratory Results Last 24 Hours Test 11/14/16 06:15 White Blood Count 13.45 K/uL Red Blood Count 4.07 M/uL Hemoglobin 11.9 g/dL Hematocrit 36.0 % Mean Corpuscular Volume 88.5 fL Mean Corpuscular Hemoglobin 29.2 pg Mean Corpuscular Hemoglobin Concent 33.1 g/dl RDW Standard Deviation 55.1 fL RDW Coefficient of Variation 17.0 % Platelet Count 272 K/uL Mean Platelet Volume 9.4 fL Sodium Level 139 mmol/L Potassium Level 3.9 mmol/L Chloride Level 98 mmol/L Carbon Dioxide Level 31 mmol/L Anion Gap 10.0 mmol/L Blood Urea Nitrogen 29 mg/dl Creatinine 1.00 mg/dl Est Creatinine Clear Calc Drug Dose 48.6 ml/min Estimated GFR () 62.1 Estimated GFR (Non- 53.5 BUN/Creatinine Ratio 29.1 Random Glucose 120 mg/dl Calcium Level 8.7 mg/dl Assessment and Plan 81-year-old female with a history of possibly mild asthma, Diastolic CHF and chronic bronchitis presented with multiple shortness of breath and cough. Shortness of breath, - being treated for ADCHF and acute bronchitis - insetting of hypoxia and bry improvement with medical therapy concern for PE check CT angio - cont Duonebs every 4 hrs scheduled, every 2 hrs prn - cont solumedrol q12 - consult pulmonology - cont Azithromycin IV day #3/5 Hypoxic Respiratory failure - rule out PE check CT angio Abdominal Pain - check CT abdomen Diastolic CHF - suspect pt hypovolemic( BNP<92, no crackles on PE and no pulmonary edema on CXR) - hold lasix -strict I&O's -daily weights Hypothyroidism -continue levothyroxine sodium 88 g by mouth daily Hypercholesterolemia- -continue simvastatin 20 mg by mouth at bedtime. Orthostatic hypotension- -holding midodrine 3 times a day due to significant elevated BP. Anxiety -Continue citalopram to 40 mg by mouth daily. DVT prophylaxis Lovenox 40 mg subQ daily TEDS, SCDs FULL CODE
[2016-11-14] MEDS: AZITHROMYCIN IV 500 MG in DEXTROSE 5% 250ML 250 ML IV SCH (16:33)
[2016-11-14] MEDS: TRAMADOL HCL 50 MG TAB PO PRN (16:44)
[2016-11-14] MEDS: ENOXAPARIN 40 MG/0.4 ML SYR SQ SCH (22:25)
[2016-11-14] MEDS: SIMVASTATIN 20 MG TAB PO SCH (22:26)
[2016-11-15] VITALS (9 sets, daily range): BP systolic 142–182; BP diastolic 80–99; PULSE 89–103; TEMP 36.4–36.6; O2SAT 92–96
[2016-11-15] MEDS: LEVOTHYROXINE 88 MCG TAB PO SCH (06:04)
[2016-11-15] MEDS: METHYLPREDNISOLONE IV 40 MG in SYRINGE 0 ML IV SCH ×2 (06:06→18:42)
[2016-11-15] MEDS: ALBUT/IPRATROP 3MG/0.5MG NEB 3 ML VIAL INH SCH ×4 (07:29→19:19)
[2016-11-15] MEDS: BUDESONIDE/FORMOTEROL FUMARATE 160/4.5 60 PUFFS/INHALER INH SCH ×2 (08:08→20:40)
[2016-11-15] MEDS: PrednisoLONE ACET 1% OP SUSP 5 ML BTL OPL SCH ×4 (08:09→20:41)
[2016-11-15] MEDS: TIOTROPIUM BROMIDE 5 PUFF/90 MCG INH INH SCH (08:09)
[2016-11-15] MEDS: KETOROLAC 0.5% OP SOLN 5 ML BTL OPL SCH ×4 (08:10→20:41)
[2016-11-15] MEDS: CYANOCOBALAMIN 500 MCG TAB (VIT B-12) PO SCH (08:11)
[2016-11-15] MEDS: CITALOPRAM 40 MG TAB PO SCH (08:11)
[2016-11-15] MEDS: GUAIFENESIN 600 MG TABCR PO SCH ×2 (08:11→20:43)
[2016-11-15] MEDS: POTASSIUM CHLORIDE 20 MEQ TABCR PO SCH ×2 (08:11→20:42)
[2016-11-15] MEDS: PANTOprazole SOD 40 MG TAB PO SCH ×2 (08:12→20:44)
--- NOTE | 2016-11-15 09:01 | PULMONARY CONSULTATION ---
DATE OF CONSULTATION: 11/15/2016 HISTORY OF PRESENT ILLNESS: This is a 81-year-old female known from previous evaluation here several weeks ago. She carries a history of right hemidiaphragm plication in August and did well, was hospitalized for pneumonia and bronchospasm in October and then readmitted on 11/11/2016 and Ambreen Almonte has asked me to evaluate the patient from a pulmonary standpoint. The patient has been followed by her air twister winder, had been treated with Levaquin and Cleocin, continued to have cough which is nonproductive, associated with some wheezing and shortness of breath. She walks with a walker, had difficulty with walking even down the hallway. She carries a history of diastolic heart failure, although previous echocardiogram actually looked fairly good. She states the antibiotics did not help much. She was using DuoNeb, then was admitted directly to the hospital. Since her admission, she states she thinks she is finally turning the corner this morning. She has gained about 20 pounds over the last 2 weeks, apparently measured in her physician's office. She denies sputum production, has some wheezing, but she carries a history of reflux, but she has not had any problems with aspiration. She has not had any peripheral edema or pain in the calves or thighs with walking. REVIEW OF SYSTEMS: Otherwise is unremarkable. 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 She carries a history of thyroid carcinoma with thyroidectomy, but no radiation therapy or chemo. She carries a history of chronic pain syndrome and anxiety. She has also had a history of degenerative joint disease, obesity, and rib fractures. FAMILY HISTORY: Significant for gallbladder disease, kidney disease, and lung disease. SOCIAL HISTORY: She has never been a tobacco or alcohol user. From an occupational standpoint, she worked at a [employer]. She has not had any significant industrial exposures. ALLERGIES: NOTED AND ARE MULTIPLE. MEDICATIONS: Noted. She had been using Spiriva, had been on 10 mg of prednisone at home, apparently had not been on a short-acting bronchodilator except Combivent that she used p.r.n. I spoke with the nurses this morning and they state the patient has been fairly stable, has been able to ambulate to the bathroom now without too much difficulty. Physical therapy evaluation was noted in the records. On 11/13/2016, she continued to have shortness of breath exacerbated by any movement. PHYSICAL EXAMINATION: VITAL SIGNS: Reveal her blood pressure to be 142/80, her pulse is 90 and regular, respiratory rate is 18 when I took it, oxygen saturation 95% on 2 liters, and she is afebrile. Her weight was 93.4 kilograms on 11/11/2016 when she was admitted. Her weight was 88.4 kilograms on 10/25/2016, so she has gained a considerable amount of weight over the last 3 weeks. HEENT: Unremarkable except for a small posterior pharynx. No tenderness noted over the sinuses. Nares are unremarkable. There is no evidence of thrush. No adenopathy is noted. NECK: I could not detect any neck vein distention or HJR. Thyroid nonpalpable. No adenopathy is noted. Trachea is midline with no evidence of upper airway obstruction. HEART: Regular rate and rhythm. I do not detect any gallops. There is a slight mid to late systolic murmur heard underneath the right clavicle. No gallops are auscultated. No diastolic murmurs are heard. LUNGS: Reveal wheezing with inspiration and expiration with some rales at the lung bases, especially at the right base. ABDOMEN: Soft, nontender. No organomegaly noted. She has no cyanosis, clubbing or edema. CAT scan of the chest reveals no evidence of pulmonary embolism. She has a small pleural effusion with dependent airspace opacities consistent with atelectasis and some atelectatic changes in the right middle lobe. Several small pulmonary nodules are noted and they have not changed compared to the previous CT scan. MRSA DNA surveillance screen is negative. White count was 13.45 yesterday with hemoglobin 11.9, hematocrit of 36%, platelet count of 272,000. Blood gas revealed pH 7.51, pCO2 of 34, pO2 of 67 on room air on 11/11/2016. Coagulation profile is unremarkable. She did have a bronchoscopy done 01/25/2016 which revealed a few inflammatory cells and some bronchial epithelial cells with no malignancy noted. IMPRESSION: 1. Bronchial asthma with exacerbation. 2. Possible heart failure. She has rales at the lung bases and has gained a considerable amount of weight. 3. Anxiety. 4. Degenerative joint disease. RECOMMENDATIONS: 1. At this point, I would continue on the methylprednisolone 40 mg IV q. 12 hours. If she continues to wheeze, that may need to be increased. I do not find any evidence of acute infection, she has been treated with Levaquin and Cleocin, and there appear to be atelectatic changes on the chest x-ray; however, she is on Zithromax and I think I would continue and finish that. The Mucinex may be helpful to enhance mucociliary clearance. 2. I would continue on the Spiriva or DuoNeb but not both. I think the Spiriva probably could be discontinued if we will use DuoNeb. I would give the DuoNeb every 4 hours while awake and q. 4 hours p.r.n. 3. Start Symbicort 160/4.5 two puffs b.i.d. 4. Diuresis. I would institute some IV Lasix over the next 48-72 hours and follow the BUN and creatinine carefully. I hope with perhaps increasing the diuretics and getting her weight down, her dyspnea may improve. It appears that she MAY BE ALLERGIC TO ERYTHROMYCIN by the allergy adverse reaction notes in the chart, so the Zithromax probably should be discontinued in retrospect. She is not coughing up any sputum, I do not think getting the sputum would be helpful at this point. Therefore, I would continue with her steroids, add Symbicort, institute some IV diuretics, follow her weights, BUN and creatinine carefully, and check a BNP. Thanks for asking me to evaluate Ms. Philip and I will be glad to follow along with you during her hospital stay.
[2016-11-15 09:11] LABS: HEMATOCRIT 40.2 % (37-47); MEAN CELL VOLUME 92.4 fL (80-100); MEAN CORPUSCULAR HGB CONC 31.3 g/dl (32-36); MEAN PLATELET VOLUME 9.8 fL (7.4-10.4); PLATELET COUNT 237 K/uL (130-400); RED BLOOD COUNT 4.35 M/uL (4.2-5.4); WHITE BLOOD COUNT 8.29 K/uL (4.8-10.8)
[2016-11-15 09:52] LABS: BUN/CREATININE RATIO 33.8 (10-20); CALCIUM 8.9 mg/dl (8.5-10.1); CREATININE 0.89 mg/dl (0.60-1.20); POTASSIUM 3.9 mmol/L (3.5-5.1)
[2016-11-15] MEDS: GABAPENTIN 300 MG CAP PO SCH (12:09)
[2016-11-15] MEDS: AZITHROMYCIN IV 500 MG in DEXTROSE 5% 250ML 250 ML IV SCH (15:39)
[2016-11-15] MEDS: TRAMADOL HCL 50 MG TAB PO PRN (15:53)
--- NOTE | 2016-11-15 18:54 | Hospitalist Progress Note ---
Hospitalist Progress Note Date of Service Nov 15, 2016. Subjective Pt evaluation today including: conversation w/ patient, physical exam, chart review, lab review, review of studies, review of inpatient medication list Patient has continued SOB overnight Denies any chest pain, nausea or vomiting Constitutional: No fever Eyes: No worsening of vision ENT: No hearing loss Respiratory: No cough, No shortness of breath Cardiovascular: No chest pain, No edema Abdomen: No pain Female : No dysuria Neurologic: No memory loss Psychiatric: No depression symptoms Endo: No fatigue Skin: No rash Medications Current Inpatient Medications Medications (Trade) Dose Ordered Sig/Natasha Route Start Time Stop Time Status Last Admin Dose Admin Enoxaparin Sodium (Lovenox Inj) 40 mg Q24H SQ 11/11/16 20:00 12/11/16 19:59 11/14/16 22:25 40 MG Acetaminophen (Tylenol Tab) 650 mg Q4H PRN PO 11/11/16 15:15 12/11/16 15:14 11/11/16 18:56 650 MG Al Hydrox/Mg Hydrox/Simethicone (Maalox Max Susp) 15 ml Q4H PRN PO 11/11/16 15:15 12/11/16 15:14 Ondansetron HCl (Zofran Inj) 4 mg Q6H PRN IV 11/11/16 15:15 12/11/16 15:14 Albuterol/ Ipratropium (Duoneb) 3 ml QIDR INH 11/11/16 16:00 12/11/16 15:59 11/15/16 15:04 3 ML Acetaminophen/ Butalbital/ Caffeine (Fioricet Tab) 1 tab Q4 PRN PO 11/11/16 16:30 12/11/16 16:29 Baclofen (Lioresal Tab) 10 mg TID PRN PO 11/11/16 16:30 12/11/16 16:29 11/14/16 07:52 10 MG Citalopram Hydrobromide (celeXA TAB) 40 mg DAILY PO 11/12/16 08:00 12/12/16 07:59 11/15/16 08:11 40 MG Cyanocobalamin (Vitamin B-12 Tab) 1,000 mcg DAILY PO 11/12/16 08:00 12/12/16 07:59 11/15/16 08:11 1,000 MCG Gabapentin (Neurontin Cap) 300 mg DAILY@1200 PO 11/12/16 12:00 12/12/16 11:59 11/15/16 12:09 300 MG Ketorolac Tromethamine (Acular 0.5% Oph Soln) 1 drops QID OPL 11/11/16 17:00 12/11/16 16:59 11/15/16 17:38 1 DROPS Levothyroxine Sodium (Synthroid Tab) 88 mcg DAILYBB PO 11/12/16 06:30 12/12/16 06:29 11/15/16 06:04 88 MCG Prednisolone Acetate (Pred Forte 1% Oph Susp) 1 drops QID OPL 11/11/16 17:00 12/11/16 16:59 11/15/16 17:36 1 DROPS Ropinirole HCl (Requip Tab) 0.5 mg HS PRN PO 11/11/16 16:30 12/11/16 16:29 11/14/16 07:51 0.5 MG Simvastatin (Zocor Tab) 20 mg HS PO 11/11/16 22:00 12/11/16 21:59 11/14/16 22:26 20 MG Pantoprazole Sodium (Protonix Tab) 40 mg BID PO 11/11/16 20:00 12/11/16 19:59 11/15/16 08:12 40 MG Potassium Chloride (Klor-Con Tab) 20 meq BID PO 11/11/16 20:00 12/11/16 19:59 11/15/16 08:11 20 MEQ Tiotropium [place] (Spiriva Handihaler Inhaler) 1 puff DAILY INH 11/12/16 08:00 12/12/16 07:59 11/15/16 08:09 1 PUFF Miscellaneous Information (Order Awaiting Action) 1 ea QS N/A 11/12/16 00:00 12/12/16 00:00 Menthol (Nice Alexis) 1 alexis PRN PRN PO 11/11/16 19:00 12/11/16 18:59 11/11/16 20:02 1 ALEXIS Tramadol HCl (Ultram Tab) 50 mg Q4H PRN PO 11/11/16 19:15 12/11/16 19:14 11/15/16 15:53 50 MG Prednisone 20 mg/ Prednisone 7.5 mg 27.5 mg QAM PO 11/12/16 08:00 12/12/16 07:59 Future Hold 11/12/16 07:51 27.5 MG Azithromycin/ Dextrose (Zithromax IV/D5 250ml) 255 ml @ 125 mls/hr DAILY@1500 IV 11/12/16 15:00 11/19/16 14:59 11/15/16 15:39 125 MLS/HR Guaifenesin 600 mg 600 mg BID PO 11/12/16 14:29 12/12/16 14:28 11/15/16 08:11 600 MG Methylprednisolone Sodium Succinate/ Syringe (Solu-Medrol IV/ Syringe) 0.64 ml @ 1.5 mls/min Q12H IV 11/13/16 18:00 12/13/16 17:59 11/15/16 18:42 1.5 MLS/MIN Ioversol (Optiray 320) 125 ml UD PRN IV 11/14/16 12:00 11/18/16 11:59 Budesonide/ Formoterol Fumarate (Symbicort 160/ 4.5 Inh) 2 puffs BID INH 11/15/16 08:00 12/15/16 07:59 11/15/16 08:08 2 PUFFS Objective Vital Signs Date Time Temp Pulse Resp B/P Pulse Ox O2 Delivery O2 Flow Rate FiO2 11/15/16 16:52 89 154/84 11/15/16 16:00 Nasal Cannula 1.5 11/15/16 15:06 36.4 99 19 182/90 96 Nasal Cannula 1.5 11/15/16 15:04 96 20 95 Nasal Cannula 2.0 11/15/16 11:38 99 22 96 Nasal Cannula 2.0 11/15/16 10:34 103 96 11/15/16 08:22 Nasal Cannula 2.0 11/15/16 07:50 36.6 95 18 173/99 93 Nasal Cannula 2.0 11/15/16 07:29 94 22 94 Nasal Cannula 2.0 11/15/16 00:00 36.6 101 20 142/80 92 2.0 11/15/16 00:00 95 Nasal Cannula 2.0 11/14/16 19:27 103 20 95 Nasal Cannula 2.0 Physical Exam General Appearance: WD/WN, no apparent distress Eyes: normal inspection ENT: normal ENT inspection Neck: supple Respiratory/Chest: chest non-tender, + rales, + wheezing Cardiovascular: regular rate, rhythm, no edema Abdomen: normal bowel sounds, non tender, soft Extremities: normal range of motion, non-tender Neurologic/Psychiatric: bundle sorter II-XII nml as tested, no motor/sensory deficits, alert, oriented x 3 Skin: normal color Laboratory Results Last 24 Hours Test 11/15/16 08:46 White Blood Count 8.29 K/uL Red Blood Count 4.35 M/uL Hemoglobin 12.6 g/dL Hematocrit 40.2 % Mean Corpuscular Volume 92.4 fL Mean Corpuscular Hemoglobin 29.0 pg Mean Corpuscular Hemoglobin Concent 31.3 g/dl RDW Standard Deviation 56.9 fL RDW Coefficient of Variation 16.9 % Platelet Count 237 K/uL Mean Platelet Volume 9.8 fL Sodium Level 132 mmol/L Potassium Level 3.9 mmol/L Chloride Level 97 mmol/L Carbon Dioxide Level 25 mmol/L Anion Gap 10.0 mmol/L Blood Urea Nitrogen 30 mg/dl Creatinine 0.89 mg/dl Est Creatinine Clear Calc Drug Dose 54.6 ml/min Estimated GFR () 71.4 Estimated GFR (Non- 61.6 BUN/Creatinine Ratio 33.8 Random Glucose 124 mg/dl Calcium Level 8.9 mg/dl Pro-B-Type Natriuretic Peptide 58 pg/ml Assessment and Plan 81-year-old female with a history of possibly mild asthma, Diastolic CHF and chronic bronchitis presented with multiple shortness of breath and cough. Shortness of breath, - being treated for ADCHF and acute bronchitis - CT angio showed no PE - cont Duonebs every 4 hrs scheduled, every 2 hrs prn - cont solumedrol q12 - consult pulmonology - cont Azithromycin IV day #4/5 Hypoxic Respiratory failure - titrate o2 - consult pulmonary Abdominal Pain - CT abdomen reviewed Diastolic CHF - suspect pt hypovolemic( BNP<92, no crackles on PE and no pulmonary edema on CXR) - start IVF hydration - hold lasix -strict I&O's -daily weights Hypothyroidism -continue levothyroxine sodium 88 g by mouth daily Hypercholesterolemia- -continue simvastatin 20 mg by mouth at bedtime. Orthostatic hypotension- -holding midodrine 3 times a day due to significant elevated BP. Anxiety -Continue citalopram to 40 mg by mouth daily. DVT prophylaxis Lovenox 40 mg subQ daily TEDS, SCDs FULL CODE
[2016-11-15] MEDS: SODIUM CHLORIDE 0.9% 1000ML 1,000 ML IV SCH (20:37)
[2016-11-15] MEDS: SIMVASTATIN 20 MG TAB PO SCH (20:43)
[2016-11-15] MEDS: ENOXAPARIN 40 MG/0.4 ML SYR SQ SCH (20:44)
[2016-11-16] VITALS (11 sets, daily range): BP systolic 139–174; BP diastolic 81–99; PULSE 88–102; TEMP 36.5–36.8; O2SAT 96–98
[2016-11-16] MEDS: ROPINIROLE HCL 0.25 MG TAB PO PRN ×2 (01:06→22:17)
[2016-11-16] MEDS: DICLOFENAC SOD 1% GEL 100 GM TUBE EXT SCH ×2 (04:16→22:16)
[2016-11-16 04:59] LABS: INFLUENZA A PCR Neg for Influ A (NEG); INFLUENZA B PCR Neg for Influ B (NEG)
[2016-11-16] MEDS: LEVOTHYROXINE 88 MCG TAB PO SCH (06:43)
[2016-11-16] MEDS: METHYLPREDNISOLONE IV 40 MG in SYRINGE 0 ML IV SCH (06:50)
--- NOTE | 2016-11-16 08:00 | PULMONARY PROGRESS NOTE ---
DATE: 11/16/2016 The patient is comfortable this morning, states she is about the same. She was out of bed most of the day yesterday and tolerated that well. She denies cough. Still has some mild shortness of breath with exertion, but she is not very active. She does have a walker in her room. She has not been out ambulating in the hallway. She has restlessness of the legs, uses some Voltaren cream at home according to nurses' notes. Apparently according to nurses' notes daughters want Dr. Khalil to evaluate the patient rather than me so I will sign off on the patient today, although Dr. Khalil is away on vacation. The patient is very comfortable this morning. PHYSICAL EXAMINATION: VITAL SIGNS: Stable. Blood pressure 161/94, oxygen saturation 98% on 2 liters and she is afebrile. Weight was 93.4 kilograms at the time of admission. MEDICATIONS: Noted. HEENT: Posterior pharynx is unremarkable. No thrush is noted. NECK: There is no neck vein distention or HJR. HEART: Regular rate and rhythm. I do not detect any murmurs. LUNGS: Reveal decreased breath sounds bilaterally, otherwise are clear. ABDOMEN: Soft, nontender. EXTREMITIES: She has no cyanosis, clubbing or edema. LABORATORY DATA: White count was 8.29 yesterday, hemoglobin 12.6; it is pending for today. PRP was stable with sodium down to 132. Glucose is in the 120-129 range. BNP was normal at 58. Influenza A and B, PCR and antigens were negative. MRSA DNA surveillance screen negative as well. CT of the chest from the reveals a small pleural effusion on the right side with airspace opacities consistent with atelectasis. A 4 mm right upper lobe pulmonary nodule is noted and there is evidence of some bronchial wall thickening in the lower lobes, especially on the right side. Abdominal CAT scan revealed some basilar infiltrative atelectatic changes with some fatty infiltration of the liver with no evidence of bowel obstruction. IMPRESSION: 1. Asthma with exacerbation. 2. Atelectasis at the bases with possible pneumonia at the bases by CT scan. She did have a leukocytosis and that is improved. RECOMMENDATIONS: 1. Continue on her present medications. I would taper the methylprednisolone down to 20 mg q. 12 or prednisone 25 mg daily, and taper that over about 2 weeks. 2. I think Mucinex could be discontinued. Continue on the Zithromax for now. 3. Incentive spirometry, good DVT prophylaxis and antireflux regimen. I discussed this with the patient at great length. I will sign off on the patient now as the family has requested Dr. Khalil, although he is not here. I would be glad to reevaluate her again during her hospitalization if you desire.
[2016-11-16] MEDS: ALBUT/IPRATROP 3MG/0.5MG NEB 3 ML VIAL INH SCH ×4 (08:08→19:40)
[2016-11-16 08:12] LABS: BUN/CREATININE RATIO 24.9 (10-20); CALCIUM 8.5 mg/dl (8.5-10.1); CREATININE 0.91 mg/dl (0.60-1.20)
[2016-11-16 08:33] LABS: HEMATOCRIT 40.1 % (37-47); MEAN CELL VOLUME 88.3 fL (80-100); MEAN CORPUSCULAR HEMOGLOBIN 29.5 pg (25-34); MEAN CORPUSCULAR HGB CONC 33.4 g/dl (32-36); MEAN PLATELET VOLUME 9.6 fL (7.4-10.4); PLATELET COUNT 263 K/uL (130-400); RED BLOOD COUNT 4.54 M/uL (4.2-5.4); WHITE BLOOD COUNT 9.86 K/uL (4.8-10.8)
[2016-11-16] MEDS: TIOTROPIUM BROMIDE 5 PUFF/90 MCG INH INH SCH (08:35)
[2016-11-16] MEDS: BUDESONIDE/FORMOTEROL FUMARATE 160/4.5 60 PUFFS/INHALER INH SCH ×2 (08:35→20:12)
[2016-11-16] MEDS: CITALOPRAM 40 MG TAB PO SCH (08:37)
[2016-11-16] MEDS: GUAIFENESIN 600 MG TABCR PO SCH ×2 (08:37→20:15)
[2016-11-16] MEDS: BACLOFEN 10 MG TAB PO PRN ×2 (08:37→20:17)
[2016-11-16] MEDS: POTASSIUM CHLORIDE 20 MEQ TABCR PO SCH ×2 (08:37→20:13)
[2016-11-16] MEDS: CYANOCOBALAMIN 500 MCG TAB (VIT B-12) PO SCH (08:37)
[2016-11-16] MEDS: PANTOprazole SOD 40 MG TAB PO SCH ×2 (08:38→20:16)
[2016-11-16] MEDS: PrednisoLONE ACET 1% OP SUSP 5 ML BTL OPL SCH ×4 (08:39→20:13)
[2016-11-16] MEDS: KETOROLAC 0.5% OP SOLN 5 ML BTL OPL SCH ×4 (08:39→20:13)
[2016-11-16] MEDS: SODIUM CHLORIDE 0.9% 1000ML 1,000 ML IV SCH (08:44)
[2016-11-16] MEDS: TRAMADOL HCL 50 MG TAB PO PRN ×4 (08:44→22:08)
[2016-11-16] MEDS: GABAPENTIN 300 MG CAP PO SCH (11:39)
[2016-11-16] MEDS: AZITHROMYCIN IV 500 MG in DEXTROSE 5% 250ML 250 ML IV SCH (14:19)
[2016-11-16] MEDS ORDERED: CHLORPH/HYDROCOD EXT REL LIQ 5ML UDP PO PRN (14:45)
--- NOTE | 2016-11-16 15:48 | Hospitalist Progress Note ---
Hospitalist Progress Note Date of Service Nov 16, 2016. Subjective Pt evaluation today including: conversation w/ patient, physical exam, chart review, lab review, review of studies, review of inpatient medication list Patient had no acute issues Continues SOB with exertion Constitutional: No fever Eyes: No worsening of vision ENT: No hearing loss Respiratory: + cough, + shortness of breath, No sputum Cardiovascular: + chest pain Abdomen: No constipation, No pain, No vomiting Musculoskeletal: No joint pain Female : No dysuria Neurologic: No memory loss Psychiatric: No depression symptoms Endo: No fatigue Skin: No rash Medications Current Inpatient Medications Medications (Trade) Dose Ordered Sig/Natasha Route Start Time Stop Time Status Last Admin Dose Admin Enoxaparin Sodium (Lovenox Inj) 40 mg Q24H SQ 11/11/16 20:00 12/11/16 19:59 11/15/16 20:44 40 MG Acetaminophen (Tylenol Tab) 650 mg Q4H PRN PO 11/11/16 15:15 12/11/16 15:14 11/11/16 18:56 650 MG Al Hydrox/Mg Hydrox/Simethicone (Maalox Max Susp) 15 ml Q4H PRN PO 11/11/16 15:15 12/11/16 15:14 Ondansetron HCl (Zofran Inj) 4 mg Q6H PRN IV 11/11/16 15:15 12/11/16 15:14 Albuterol/ Ipratropium (Duoneb) 3 ml QIDR INH 11/11/16 16:00 12/11/16 15:59 11/16/16 11:30 3 ML Acetaminophen/ Butalbital/ Caffeine (Fioricet Tab) 1 tab Q4 PRN PO 11/11/16 16:30 12/11/16 16:29 Baclofen (Lioresal Tab) 10 mg TID PRN PO 11/11/16 16:30 12/11/16 16:29 11/16/16 08:37 10 MG Citalopram Hydrobromide (celeXA TAB) 40 mg DAILY PO 11/12/16 08:00 12/12/16 07:59 11/16/16 08:37 40 MG Cyanocobalamin (Vitamin B-12 Tab) 1,000 mcg DAILY PO 11/12/16 08:00 12/12/16 07:59 11/16/16 08:37 1,000 MCG Gabapentin (Neurontin Cap) 300 mg DAILY@1200 PO 11/12/16 12:00 12/12/16 11:59 11/16/16 11:39 300 MG Ketorolac Tromethamine (Acular 0.5% Oph Soln) 1 drops QID OPL 11/11/16 17:00 12/11/16 16:59 11/16/16 11:39 1 DROPS Levothyroxine Sodium (Synthroid Tab) 88 mcg DAILYBB PO 11/12/16 06:30 12/12/16 06:29 11/16/16 06:43 88 MCG Prednisolone Acetate (Pred Forte 1% Oph Susp) 1 drops QID OPL 11/11/16 17:00 12/11/16 16:59 11/16/16 11:39 1 DROPS Ropinirole HCl (Requip Tab) 0.5 mg HS PRN PO 11/11/16 16:30 12/11/16 16:29 11/16/16 01:06 0.5 MG Simvastatin (Zocor Tab) 20 mg HS PO 11/11/16 22:00 12/11/16 21:59 11/15/16 20:43 20 MG Pantoprazole Sodium (Protonix Tab) 40 mg BID PO 11/11/16 20:00 12/11/16 19:59 11/16/16 08:38 40 MG Potassium Chloride (Klor-Con Tab) 20 meq BID PO 11/11/16 20:00 12/11/16 19:59 11/16/16 08:37 20 MEQ Tiotropium [place] (Spiriva Handihaler Inhaler) 1 puff DAILY INH 11/12/16 08:00 12/12/16 07:59 11/16/16 08:35 1 PUFF Miscellaneous Information (Order Awaiting Action) 1 ea QS N/A 11/12/16 00:00 12/12/16 00:00 Menthol (Nice Alexis) 1 alexis PRN PRN PO 11/11/16 19:00 12/11/16 18:59 11/11/16 20:02 1 ALEXIS Tramadol HCl (Ultram Tab) 50 mg Q4H PRN PO 11/11/16 19:15 12/11/16 19:14 11/16/16 12:52 50 MG Prednisone 20 mg/ Prednisone 7.5 mg 27.5 mg QAM PO 11/12/16 08:00 12/12/16 07:59 Future Hold 11/12/16 07:51 27.5 MG Azithromycin/ Dextrose (Zithromax IV/D5 250ml) 255 ml @ 125 mls/hr DAILY@1500 IV 11/12/16 15:00 11/19/16 14:59 11/16/16 14:19 125 MLS/HR Guaifenesin (Mucinex Contr Rel Tab) 600 mg BID PO 11/12/16 14:29 12/12/16 14:28 11/16/16 08:37 600 MG Ioversol (Optiray 320) 125 ml UD PRN IV 11/14/16 12:00 11/18/16 11:59 Budesonide/ Formoterol Fumarate (Symbicort 160/ 4.5 Inh) 2 puffs BID INH 11/15/16 08:00 12/15/16 07:59 11/16/16 08:35 2 PUFFS Diclofenac Sodium 1 appln 1 appln HS EXT 11/16/16 22:00 12/16/16 21:59 11/16/16 04:16 1 APPLN Methylprednisolone Sodium Succinate/ Syringe (Solu-Medrol IV/ Syringe) 0.32 ml @ 1.5 mls/min Q12H IV 11/16/16 18:00 12/16/16 17:59 Enteral Nutritional Formula (Boost) 1 can AC PO 11/16/16 16:30 12/16/16 16:29 Nystatin (Mycostatin Susp) 5 ml QID PO 11/16/16 17:00 11/26/16 16:59 Chlorphenir/ Hydrocodone Polistirex (Tussionex Liqd) 5 ml Q12H PRN PO 11/16/16 14:45 11/30/16 14:44 Objective Vital Signs Date Time Temp Pulse Resp B/P Pulse Ox O2 Delivery O2 Flow Rate FiO2 11/16/16 14:48 36.8 102 20 143/81 97 Nasal Cannula 3.0 11/16/16 11:30 91 20 97 Nasal Cannula 2.0 11/16/16 08:08 91 20 96 Nasal Cannula 2.0 11/16/16 07:45 96 Nasal Cannula 2.0 11/16/16 07:31 36.7 91 20 171/92 96 Nasal Cannula 2.0 11/16/16 00:45 Nasal Cannula 2.0 11/16/16 00:00 36.6 94 20 161/94 98 2.0 11/15/16 19:19 97 20 96 Nasal Cannula 2.0 11/15/16 16:52 89 154/84 11/15/16 16:00 Nasal Cannula 1.5 Physical Exam General Appearance: WD/WN, no apparent distress Eyes: normal inspection ENT: normal ENT inspection, hearing grossly normal Neck: supple Respiratory/Chest: chest non-tender, normal breath sounds, + rhonchi Cardiovascular: regular rate, rhythm, no edema, no gallop Abdomen: normal bowel sounds, soft Extremities: normal range of motion, non-tender Neurologic/Psychiatric: plant breeder scientist II-XII nml as tested, no motor/sensory deficits, alert, oriented x 3 Laboratory Results Last 24 Hours Test 11/16/16 00:00 11/16/16 07:24 Influenza Type A (RT-PCR) Neg for Influ A Influenza Type A Antigen Neg for Influ A Influenza Type B Antigen Neg for Influ B Influenza Type B (RT-PCR) Neg for Influ B White Blood Count 9.86 K/uL Red Blood Count 4.54 M/uL Hemoglobin 13.4 g/dL Hematocrit 40.1 % Mean Corpuscular Volume 88.3 fL Mean Corpuscular Hemoglobin 29.5 pg Mean Corpuscular Hemoglobin Concent 33.4 g/dl RDW Standard Deviation 54.0 fL RDW Coefficient of Variation 16.6 % Platelet Count 263 K/uL Mean Platelet Volume 9.6 fL Sodium Level 140 mmol/L Potassium Level 4.0 mmol/L Chloride Level 103 mmol/L Carbon Dioxide Level 25 mmol/L Anion Gap 12.0 mmol/L Blood Urea Nitrogen 23 mg/dl Creatinine 0.91 mg/dl Est Creatinine Clear Calc Drug Dose 53.4 ml/min Estimated GFR () 69.5 Estimated GFR (Non- 60.0 BUN/Creatinine Ratio 24.9 Random Glucose 106 mg/dl Calcium Level 8.5 mg/dl Assessment and Plan 81-year-old female with a history of possibly mild asthma, Diastolic CHF and chronic bronchitis presented with multiple shortness of breath and cough. Shortness of breath, - 2/2 acute bronchitis - CT angio showed no PE - cont Duonebs every 4 hrs scheduled, every 2 hrs prn - cont solumedrol 20 mg q12 - appreciate pulmonology input - cont Azithromycin IV day #5 - check Viral culture to check for influenza H Hypoxic Respiratory failure - titrate o2 - appreciate pulmonary Abdominal Pain - CT abdomen reviewed Diastolic CHF - euvolemic( BNP<92, no crackles on PE and no pulmonary edema on CXR) -d/c IVF - hold lasix -strict I&O's -daily weights Hypothyroidism -continue levothyroxine sodium 88 g by mouth daily Hypercholesterolemia- -continue simvastatin 20 mg by mouth at bedtime. Orthostatic hypotension- -holding midodrine 3 times a day due to significant elevated BP. Anxiety -Continue citalopram to 40 mg by mouth daily. DVT prophylaxis Lovenox 40 mg subQ daily TEDS, SCDs FULL CODE
[2016-11-16] MEDS: BOOST VANILLA PO SCH ×2 (16:55)
[2016-11-16] MEDS: NYSTATIN SUSP 500,000 U/5 ML UDC PO SCH ×2 (16:59→20:15)
[2016-11-16] MEDS: METHYLPREDNISOLONE IV 20 MG in SYRINGE 0 ML IV SCH (18:08)
[2016-11-16] MEDS: ENOXAPARIN 40 MG/0.4 ML SYR SQ SCH (20:16)
[2016-11-16] MEDS: SIMVASTATIN 20 MG TAB PO SCH (20:19)
[2016-11-16] MEDS: OXYCODONE HCL IR 5 MG TAB (IMMEDIATE RELEASE) PO PRN (22:10)
[2016-11-16] MEDS ORDERED: BENZONATATE 100MG CAP PO ONE (22:15)
[2016-11-17] VITALS (14 sets, daily range): BP systolic 143–171; BP diastolic 76–85; PULSE 83–96; TEMP 36.4–36.6; O2SAT 92–98
[2016-11-17] MEDS: ACETAMINOPHEN 325 MG TAB PO SCH ×4 (01:00→20:17)
[2016-11-17] MEDS: BOOST VANILLA PO SCH ×8 (06:29→20:15)
[2016-11-17] MEDS: LEVOTHYROXINE 88 MCG TAB PO SCH (06:29)
[2016-11-17] MEDS: METHYLPREDNISOLONE IV 20 MG in SYRINGE 0 ML IV SCH (06:30)
[2016-11-17] MEDS: OXYCODONE HCL IR 5 MG TAB (IMMEDIATE RELEASE) PO PRN ×2 (07:21→16:34)
[2016-11-17] MEDS: BUDESONIDE/FORMOTEROL FUMARATE 160/4.5 60 PUFFS/INHALER INH SCH ×2 (07:44→20:14)
[2016-11-17] MEDS: CITALOPRAM 40 MG TAB PO SCH (07:45)
[2016-11-17] MEDS: NYSTATIN SUSP 500,000 U/5 ML UDC PO SCH ×4 (07:45→20:18)
[2016-11-17] MEDS: CYANOCOBALAMIN 500 MCG TAB (VIT B-12) PO SCH (07:45)
[2016-11-17] MEDS: POTASSIUM CHLORIDE 20 MEQ TABCR PO SCH ×2 (07:45→20:21)
[2016-11-17] MEDS: PANTOprazole SOD 40 MG TAB PO SCH ×2 (07:45→20:20)
[2016-11-17] MEDS: BACLOFEN 10 MG TAB PO PRN ×2 (07:45→14:06)
[2016-11-17] MEDS: BENZONATATE 100MG CAP PO SCH ×3 (07:45→20:20)
[2016-11-17] MEDS: KETOROLAC 0.5% OP SOLN 5 ML BTL OPL SCH ×4 (07:46→20:15)
[2016-11-17] MEDS: PrednisoLONE ACET 1% OP SUSP 5 ML BTL OPL SCH ×4 (07:46→20:14)
[2016-11-17] MEDS: ALBUT/IPRATROP 3MG/0.5MG NEB 3 ML VIAL INH SCH ×4 (07:59→19:08)
[2016-11-17] MEDS: GUAIFENESIN 600 MG TABCR PO SCH ×2 (08:22→20:19)
[2016-11-17] MEDS: TIOTROPIUM BROMIDE 5 PUFF/90 MCG INH INH SCH (08:22)
[2016-11-17 08:35] LABS: HEMATOCRIT 35.8 % (37-47); MEAN CELL VOLUME 88.8 fL (80-100); MEAN CORPUSCULAR HEMOGLOBIN 28.5 pg (25-34); MEAN CORPUSCULAR HGB CONC 32.1 g/dl (32-36); MEAN PLATELET VOLUME 9.4 fL (7.4-10.4); PLATELET COUNT 262 K/uL (130-400); RED BLOOD COUNT 4.03 M/uL (4.2-5.4); WHITE BLOOD COUNT 8.76 K/uL (4.8-10.8)
[2016-11-17] MEDS: GABAPENTIN 300 MG CAP PO SCH (11:18)
[2016-11-17] MEDS: TRAMADOL HCL 50 MG TAB PO PRN (14:12)
[2016-11-17] MEDS: AZITHROMYCIN IV 500 MG in DEXTROSE 5% 250ML 250 ML IV SCH (14:46)
--- NOTE | 2016-11-17 15:03 | Hospitalist Progress Note ---
Hospitalist Progress Note Date of Service Nov 17, 2016. Subjective Pt evaluation today including: conversation w/ patient, physical exam, chart review, lab review, review of studies, review of inpatient medication list Patient had no acute issues overnight c/o right lateral chest pain with coughing SOB is improved patient of oxygen Constitutional: No fever Eyes: No worsening of vision ENT: No hearing loss Respiratory: No cough, No shortness of breath Cardiovascular: No chest pain Abdomen: No constipation, No diarrhea, No pain, No vomiting Female : No dysuria Neurologic: No memory loss Psychiatric: No depression symptoms Endo: No fatigue Medications Current Inpatient Medications Medications (Trade) Dose Ordered Sig/Natasha Route Start Time Stop Time Status Last Admin Dose Admin Enoxaparin Sodium (Lovenox Inj) 40 mg Q24H SQ 11/11/16 20:00 12/11/16 19:59 11/16/16 20:16 40 MG Al Hydrox/Mg Hydrox/Simethicone (Maalox Max Susp) 15 ml Q4H PRN PO 11/11/16 15:15 12/11/16 15:14 Ondansetron HCl (Zofran Inj) 4 mg Q6H PRN IV 11/11/16 15:15 12/11/16 15:14 Albuterol/ Ipratropium (Duoneb) 3 ml QIDR INH 11/11/16 16:00 12/11/16 15:59 11/17/16 12:00 3 ML Acetaminophen/ Butalbital/ Caffeine (Fioricet Tab) 1 tab Q4 PRN PO 11/11/16 16:30 12/11/16 16:29 Baclofen (Lioresal Tab) 10 mg TID PRN PO 11/11/16 16:30 12/11/16 16:29 11/17/16 14:06 10 MG Citalopram Hydrobromide (celeXA TAB) 40 mg DAILY PO 11/12/16 08:00 12/12/16 07:59 11/17/16 07:45 40 MG Cyanocobalamin (Vitamin B-12 Tab) 1,000 mcg DAILY PO 11/12/16 08:00 12/12/16 07:59 11/17/16 07:45 1,000 MCG Gabapentin (Neurontin Cap) 300 mg DAILY@1200 PO 11/12/16 12:00 12/12/16 11:59 11/17/16 11:18 300 MG Ketorolac Tromethamine (Acular 0.5% Oph Soln) 1 drops QID OPL 11/11/16 17:00 12/11/16 16:59 11/17/16 11:19 1 DROPS Levothyroxine Sodium (Synthroid Tab) 88 mcg DAILYBB PO 11/12/16 06:30 12/12/16 06:29 11/17/16 06:29 88 MCG Prednisolone Acetate (Pred Forte 1% Oph Susp) 1 drops QID OPL 11/11/16 17:00 12/11/16 16:59 11/17/16 11:19 1 DROPS Ropinirole HCl (Requip Tab) 0.5 mg HS PRN PO 11/11/16 16:30 12/11/16 16:29 11/16/16 22:17 0.5 MG Simvastatin (Zocor Tab) 20 mg HS PO 11/11/16 22:00 12/11/16 21:59 11/16/16 20:19 20 MG Pantoprazole Sodium (Protonix Tab) 40 mg BID PO 11/11/16 20:00 12/11/16 19:59 11/17/16 07:45 40 MG Potassium Chloride (Klor-Con Tab) 20 meq BID PO 11/11/16 20:00 12/11/16 19:59 11/17/16 07:45 20 MEQ Tiotropium [place] (Spiriva Handihaler Inhaler) 1 puff DAILY INH 11/12/16 08:00 12/12/16 07:59 11/17/16 08:22 1 PUFF Miscellaneous Information (Order Awaiting Action) 1 ea QS N/A 11/12/16 00:00 12/12/16 00:00 Menthol (Nice Alexis) 1 alexis PRN PRN PO 11/11/16 19:00 12/11/16 18:59 11/11/16 20:02 1 ALEXIS Tramadol HCl (Ultram Tab) 50 mg Q4H PRN PO 11/11/16 19:15 12/11/16 19:14 11/17/16 14:12 50 MG Prednisone 20 mg/ Prednisone 7.5 mg 27.5 mg QAM PO 11/12/16 08:00 12/12/16 07:59 Future Hold 11/12/16 07:51 27.5 MG Azithromycin/ Dextrose (Zithromax IV/D5 250ml) 255 ml @ 125 mls/hr DAILY@1500 IV 11/12/16 15:00 11/19/16 14:59 11/17/16 14:46 125 MLS/HR Guaifenesin (Mucinex Contr Rel Tab) 600 mg BID PO 11/12/16 14:29 12/12/16 14:28 11/17/16 08:22 600 MG Ioversol (Optiray 320) 125 ml UD PRN IV 11/14/16 12:00 11/18/16 11:59 Budesonide/ Formoterol Fumarate (Symbicort 160/ 4.5 Inh) 2 puffs BID INH 11/15/16 08:00 12/15/16 07:59 11/17/16 07:44 2 PUFFS Diclofenac Sodium 1 appln 1 appln HS EXT 11/16/16 22:00 12/16/16 21:59 11/16/16 22:16 1 APPLN Methylprednisolone Sodium Succinate/ Syringe (Solu-Medrol IV/ Syringe) 0.32 ml @ 1.5 mls/min Q12H IV 11/16/16 18:00 12/16/16 17:59 11/17/16 06:30 1.5 MLS/MIN Enteral Nutritional Formula (Boost) 1 can AC PO 11/16/16 16:30 12/16/16 16:29 11/17/16 11:18 1 CAN Nystatin (Mycostatin Susp) 5 ml QID PO 11/16/16 17:00 11/26/16 16:59 11/17/16 11:18 5 ML Chlorphenir/ Hydrocodone Polistirex (Tussionex Liqd) 5 ml Q12H PRN PO 11/16/16 14:45 11/30/16 14:44 11/17/16 07:21 5 ML Acetaminophen (Tylenol Tab) 650 mg Q6@0200,0600,1400,2000 PO 11/17/16 01:15 12/17/16 01:14 11/17/16 14:07 650 MG Dextromethorphan Polymer Complex (Delsym Susp) 30 mg Q6H PRN PO 11/16/16 22:00 12/16/16 21:59 Benzonatate (Tessalon Perles Cap) 100 mg TID PO 11/17/16 08:00 12/17/16 07:59 11/17/16 14:07 100 MG Oxycodone HCl (Roxicodone Immediate Rel Tab) 5 mg Q4H PRN PO 11/16/16 22:00 11/30/16 21:59 11/17/16 07:21 5 MG Enteral Nutritional Formula (Boost) 1 can TID PO 11/17/16 14:00 12/17/16 13:59 11/17/16 14:18 1 CAN Ibuprofen (Advil Tab) 400 mg QID PRN PO 11/17/16 14:30 12/17/16 14:29 Objective Vital Signs Date Time Temp Pulse Resp B/P Pulse Ox O2 Delivery O2 Flow Rate FiO2 11/17/16 11:28 87 16 96 Room Air 11/17/16 10:25 83 20 143/82 92 Room Air 11/17/16 08:28 95 Room Air 11/17/16 08:27 20 95 Room Air 11/17/16 08:00 96 20 98 Nasal Cannula 1.0 11/17/16 07:59 98 Nasal Cannula 1.0 11/17/16 07:13 36.6 87 22 171/85 94 Nasal Cannula 1.0 11/17/16 00:00 94 Nasal Cannula 1.0 11/17/16 00:00 90 146/81 11/16/16 23:15 36.7 94 22 174/99 97 Nasal Cannula 1.0 11/16/16 21:18 36.8 95 16 139/81 98 Nasal Cannula 1.0 11/16/16 19:40 98 18 97 Nasal Cannula 1.0 11/16/16 16:47 Nasal Cannula 1.0 11/16/16 15:52 91 18 97 Nasal Cannula 2.0 Physical Exam General Appearance: WD/WN, no apparent distress Eyes: normal inspection ENT: normal ENT inspection Neck: supple Respiratory/Chest: chest non-tender, lungs clear Cardiovascular: regular rate, rhythm, no edema Abdomen: normal bowel sounds, non tender, soft Extremities: normal range of motion 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, no motor/sensory deficits, alert, oriented x 3 Skin: normal color, warm/dry Lymphatic: no adenopathy Laboratory Results Last 24 Hours Test 11/17/16 01:05 11/17/16 08:08 White Blood Count 8.76 K/uL Red Blood Count 4.03 M/uL Hemoglobin 11.5 g/dL Hematocrit 35.8 % Mean Corpuscular Volume 88.8 fL Mean Corpuscular Hemoglobin 28.5 pg Mean Corpuscular Hemoglobin Concent 32.1 g/dl RDW Standard Deviation 53.8 fL RDW Coefficient of Variation 16.4 % Platelet Count 262 K/uL Mean Platelet Volume 9.4 fL Assessment and Plan 81-year-old female with a history of possibly mild asthma, Diastolic CHF and chronic bronchitis presented with multiple shortness of breath and cough. Shortness of breath, - 2/2 acute bronchitis - CT angio showed no PE - cont Duonebs every 4 hrs scheduled, every 2 hrs prn - discontinue solumedrol 20 mg q12/start prednsione - appreciate pulmonology input - completed Azithromycin IV day #5/ Hypoxic Respiratory failure - titrate o2 - appreciate pulmonary input - 2 step at time of discharge Abdominal Pain - CT abdomen reviewed Diastolic CHF - euvolemic( BNP<92, no crackles on PE and no pulmonary edema on CXR) - hold lasix -strict I&O's -daily weights Hypothyroidism -continue levothyroxine sodium 88 g by mouth daily Hypercholesterolemia- -continue simvastatin 20 mg by mouth at bedtime. Orthostatic hypotension- -holding midodrine 3 times a day due to significant elevated BP. Anxiety -Continue citalopram to 40 mg by mouth daily. DVT prophylaxis Lovenox 40 mg subQ daily TEDS, SCDs FULL CODE
[2016-11-17] MEDS: SIMVASTATIN 20 MG TAB PO SCH (20:18)
[2016-11-17] MEDS: ENOXAPARIN 40 MG/0.4 ML SYR SQ SCH (20:19)
[2016-11-18] VITALS (8 sets, daily range): BP systolic 142–193; BP diastolic 81–89; PULSE 83–112; TEMP 36.4–36.9; O2SAT 95–98
[2016-11-18] MEDS: ACETAMINOPHEN 325 MG TAB PO SCH ×4 (02:00→20:21)
[2016-11-18] MEDS: LEVOTHYROXINE 88 MCG TAB PO SCH (06:43)
[2016-11-18] MEDS: ALBUT/IPRATROP 3MG/0.5MG NEB 3 ML VIAL INH SCH ×4 (07:38→19:48)
[2016-11-18] MEDS: CYANOCOBALAMIN 500 MCG TAB (VIT B-12) PO SCH (08:10)
[2016-11-18] MEDS: BOOST VANILLA PO SCH ×6 (08:10→20:22)
[2016-11-18] MEDS: CITALOPRAM 40 MG TAB PO SCH (08:10)
[2016-11-18] MEDS: GUAIFENESIN 600 MG TABCR PO SCH ×2 (08:10→20:20)
[2016-11-18] MEDS: POTASSIUM CHLORIDE 20 MEQ TABCR PO SCH ×2 (08:11→20:20)
[2016-11-18] MEDS: BENZONATATE 100MG CAP PO SCH ×3 (08:11→20:21)
[2016-11-18] MEDS: TIOTROPIUM BROMIDE 5 PUFF/90 MCG INH INH SCH (08:12)
[2016-11-18] MEDS: BUDESONIDE/FORMOTEROL FUMARATE 160/4.5 60 PUFFS/INHALER INH SCH ×2 (08:12→20:21)
[2016-11-18] MEDS: PrednisoLONE ACET 1% OP SUSP 5 ML BTL OPL SCH ×4 (08:13→20:21)
[2016-11-18] MEDS: KETOROLAC 0.5% OP SOLN 5 ML BTL OPL SCH ×4 (08:13→20:21)
[2016-11-18] MEDS: NYSTATIN SUSP 500,000 U/5 ML UDC PO SCH ×4 (08:14→20:22)
[2016-11-18] MEDS: PANTOprazole SOD 40 MG TAB PO SCH ×2 (08:14→20:21)
[2016-11-18 08:50] LABS: HEMATOCRIT 40.3 % (37-47); MEAN CORPUSCULAR HEMOGLOBIN 29.3 pg (25-34); MEAN CORPUSCULAR HGB CONC 32.3 g/dl (32-36); PLATELET COUNT 274 K/uL (130-400); RED BLOOD COUNT 4.43 M/uL (4.2-5.4); WHITE BLOOD COUNT 10.41 K/uL (4.8-10.8)
[2016-11-18 09:24] LABS: BUN/CREATININE RATIO 27.6 (10-20); CALCIUM 8.9 mg/dl (8.5-10.1); POTASSIUM 4.3 mmol/L (3.5-5.1)
--- NOTE | 2016-11-18 12:25 | Hospitalist Progress Note ---
Hospitalist Progress Note Date of Service Nov 18, 2016. Subjective Pt evaluation today including: conversation w/ patient, physical exam, chart review, lab review, review of studies, review of inpatient medication list Patient states SOB has improved C/o right lateral lower chest pain Denies any fever Constitutional: No fever Eyes: No worsening of vision ENT: No hearing loss Respiratory: + cough, + shortness of breath, No wheezing Cardiovascular: + chest pain (right lateral chest wall) Abdomen: No pain, No vomiting Musculoskeletal: No joint pain Female : No dysuria Neurologic: No memory loss, No numbness/tingling, No weakness Psychiatric: No depression symptoms Skin: No rash Medications Current Inpatient Medications Medications (Trade) Dose Ordered Sig/Natasha Route Start Time Stop Time Status Last Admin Dose Admin Enoxaparin Sodium (Lovenox Inj) 40 mg Q24H SQ 11/11/16 20:00 12/11/16 19:59 11/17/16 20:19 40 MG Al Hydrox/Mg Hydrox/Simethicone (Maalox Max Susp) 15 ml Q4H PRN PO 11/11/16 15:15 12/11/16 15:14 Ondansetron HCl (Zofran Inj) 4 mg Q6H PRN IV 11/11/16 15:15 12/11/16 15:14 Albuterol/ Ipratropium (Duoneb) 3 ml QIDR INH 11/11/16 16:00 12/11/16 15:59 11/18/16 11:17 3 ML Acetaminophen/ Butalbital/ Caffeine (Fioricet Tab) 1 tab Q4 PRN PO 11/11/16 16:30 12/11/16 16:29 Baclofen (Lioresal Tab) 10 mg TID PRN PO 11/11/16 16:30 12/11/16 16:29 11/17/16 14:06 10 MG Citalopram Hydrobromide (celeXA TAB) 40 mg DAILY PO 11/12/16 08:00 12/12/16 07:59 11/18/16 08:10 40 MG Cyanocobalamin (Vitamin B-12 Tab) 1,000 mcg DAILY PO 11/12/16 08:00 12/12/16 07:59 11/18/16 08:10 1,000 MCG Gabapentin (Neurontin Cap) 300 mg DAILY@1200 PO 11/12/16 12:00 12/12/16 11:59 11/17/16 11:18 300 MG Ketorolac Tromethamine (Acular 0.5% Oph Soln) 1 drops QID OPL 11/11/16 17:00 12/11/16 16:59 11/18/16 08:13 1 DROPS Levothyroxine Sodium (Synthroid Tab) 88 mcg DAILYBB PO 11/12/16 06:30 12/12/16 06:29 11/18/16 06:43 88 MCG Prednisolone Acetate (Pred Forte 1% Oph Susp) 1 drops QID OPL 11/11/16 17:00 12/11/16 16:59 11/18/16 08:13 1 DROPS Ropinirole HCl (Requip Tab) 0.5 mg HS PRN PO 11/11/16 16:30 12/11/16 16:29 11/16/16 22:17 0.5 MG Simvastatin (Zocor Tab) 20 mg HS PO 11/11/16 22:00 12/11/16 21:59 11/17/16 20:18 20 MG Pantoprazole Sodium (Protonix Tab) 40 mg BID PO 11/11/16 20:00 12/11/16 19:59 11/18/16 08:14 40 MG Potassium Chloride (Klor-Con Tab) 20 meq BID PO 11/11/16 20:00 12/11/16 19:59 11/18/16 08:11 20 MEQ Tiotropium [place] (Spiriva Handihaler Inhaler) 1 puff DAILY INH 11/12/16 08:00 12/12/16 07:59 11/18/16 08:12 1 PUFF Miscellaneous Information (Order Awaiting Action) 1 ea QS N/A 11/12/16 00:00 12/12/16 00:00 Menthol (Nice Alexis) 1 alexis PRN PRN PO 11/11/16 19:00 12/11/16 18:59 11/11/16 20:02 1 ALEXIS Tramadol HCl (Ultram Tab) 50 mg Q4H PRN PO 11/11/16 19:15 12/11/16 19:14 11/17/16 14:12 50 MG Prednisone/ Prednisone (PredniSONE TAB/ PredniSONE TAB) 27.5 mg QAM PO 11/12/16 08:00 12/12/16 07:59 Future Hold 11/12/16 07:51 27.5 MG Guaifenesin (Mucinex Contr Rel Tab) 600 mg BID PO 11/12/16 14:29 12/12/16 14:28 11/18/16 08:10 600 MG Ioversol (Optiray 320) 125 ml UD PRN IV 11/14/16 12:00 11/18/16 11:59 Budesonide/ Formoterol Fumarate (Symbicort 160/ 4.5 Inh) 2 puffs BID INH 11/15/16 08:00 12/15/16 07:59 11/18/16 08:12 2 PUFFS Diclofenac Sodium (Voltaren 1% Top Gel) 1 appln HS EXT 11/16/16 22:00 12/16/16 21:59 11/16/16 22:16 1 APPLN Nystatin (Mycostatin Susp) 5 ml QID PO 11/16/16 17:00 11/26/16 16:59 11/18/16 08:14 5 ML Chlorphenir/ Hydrocodone Polistirex (Tussionex Liqd) 5 ml Q12H PRN PO 11/16/16 14:45 11/30/16 14:44 11/17/16 07:21 5 ML Acetaminophen (Tylenol Tab) 650 mg Q6@0200,0600,1400,2000 PO 11/17/16 01:15 12/17/16 01:14 11/18/16 06:45 650 MG Dextromethorphan Polymer Complex (Delsym Susp) 30 mg Q6H PRN PO 11/16/16 22:00 12/16/16 21:59 Benzonatate (Tessalon Perles Cap) 100 mg TID PO 11/17/16 08:00 12/17/16 07:59 11/18/16 08:11 100 MG Oxycodone HCl (Roxicodone Immediate Rel Tab) 5 mg Q4H PRN PO 11/16/16 22:00 11/30/16 21:59 11/17/16 16:34 5 MG Enteral Nutritional Formula (Boost) 1 can TID PO 11/17/16 14:00 12/17/16 13:59 11/18/16 08:10 1 CAN Ibuprofen (Advil Tab) 400 mg QID PRN PO 11/17/16 14:30 12/17/16 14:29 Prednisone (PredniSONE TAB) 50 mg DAILY PO 11/18/16 08:00 12/18/16 07:59 11/18/16 08:10 50 MG Objective Vital Signs Date Time Temp Pulse Resp B/P Pulse Ox O2 Delivery O2 Flow Rate FiO2 11/18/16 11:17 100 18 95 Room Air 11/18/16 08:00 Room Air 11/18/16 07:38 87 18 97 Room Air 11/18/16 07:00 36.9 83 16 142/81 97 Room Air 11/18/16 00:00 Room Air 11/17/16 23:47 36.5 88 18 152/85 92 Room Air 11/17/16 19:08 84 18 95 Room Air 11/17/16 16:27 149/76 11/17/16 16:15 94 Room Air 11/17/16 15:20 36.4 94 20 164/85 94 Room Air 11/17/16 15:17 92 22 95 Room Air Physical Exam General Appearance: WD/WN, no apparent distress Eyes: normal inspection ENT: normal ENT inspection Neck: supple Respiratory/Chest: chest non-tender (right lateral chest wall tenderness), lungs clear, normal breath sounds Cardiovascular: regular rate, rhythm, no edema Abdomen: normal bowel sounds, non tender Extremities: normal range of motion, non-tender 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, no motor/sensory deficits, alert, oriented x 3 Laboratory Results Last 24 Hours Test 11/18/16 08:17 White Blood Count 10.41 K/uL Red Blood Count 4.43 M/uL Hemoglobin 13.0 g/dL Hematocrit 40.3 % Mean Corpuscular Volume 91.0 fL Mean Corpuscular Hemoglobin 29.3 pg Mean Corpuscular Hemoglobin Concent 32.3 g/dl RDW Standard Deviation 55.7 fL RDW Coefficient of Variation 16.8 % Platelet Count 274 K/uL Mean Platelet Volume 10.0 fL Nucleated RBC Absolute Count (auto) 0.04 K/uL Nucleated Red Blood Cells % 0.4 % Sodium Level 138 mmol/L Potassium Level 4.3 mmol/L Chloride Level 103 mmol/L Carbon Dioxide Level 27 mmol/L Anion Gap 8.0 mmol/L Blood Urea Nitrogen 28 mg/dl Creatinine 1.00 mg/dl Est Creatinine Clear Calc Drug Dose 48.6 ml/min Estimated GFR () 62.1 Estimated GFR (Non- 53.5 BUN/Creatinine Ratio 27.6 Random Glucose 99 mg/dl Calcium Level 8.9 mg/dl Assessment and Plan 81-year-old female with a history of possibly mild asthma, Diastolic CHF and chronic bronchitis presented with multiple shortness of breath and cough. Shortness of breath, - 2/2 acute bronchitis - CT angio showed no PE - cont Duonebs every 4 hrs scheduled, every 2 hrs prn - cont prednsione day #2 - appreciate pulmonology input - completed Azithromycin IV day #01/20 Right lateral Chest wall musculoskeletal pain - kdur pad - start flexeril/ NO NSAIDS due to GFR Hypoxic Respiratory failure - resolved - 2 step done showed no need for home o2 Abdominal Pain - CT abdomen reviewed - resolved Diastolic CHF - euvolemic( BNP<92, no crackles on PE and no pulmonary edema on CXR) - resume -strict I&O's -daily weights Hypothyroidism -continue levothyroxine sodium 88 g by mouth daily Hypercholesterolemia- -continue simvastatin 20 mg by mouth at bedtime. Orthostatic hypotension- -holding midodrine 3 times a day due to significant elevated BP. Anxiety -Continue citalopram to 40 mg by mouth daily. DVT prophylaxis Lovenox 40 mg subQ daily TEDS, SCDs FULL CODE
[2016-11-18] MEDS: CYCLOBENZAPRINE HCL 5 MG TAB PO SCH ×2 (13:44→20:20)
[2016-11-18] MEDS: GABAPENTIN 300 MG CAP PO SCH (13:44)
[2016-11-18] MEDS: TRAMADOL HCL 50 MG TAB PO PRN (13:51)
--- NOTE | 2016-11-18 15:43 | DIAGNOSTIC IMAGING REPORT ---
SINGLE VIEW CHEST CLINICAL HISTORY: Dyspnea. FINDINGS: An AP, portable, upright chest radiograph is compared to study dated 11/11/16. Correlation is made with chest CT dated 11/14/2016. The examination is degraded by portable technique, apical lordotic positioning, large body habitus, and patient rotation. The heart is enlarged. The pulmonary vasculature is noncongested. There are low lung volumes. There are small pleural effusions with bibasilar atelectasis. No pneumothorax is seen. The skeletal structures are osteopenic. Bilateral shoulder arthroplasties are in place. Extensive fusion hardware is noted in the cervical spine and at the thoracolumbar junction. Surgical clips are seen in the upper abdomen. IMPRESSION: 1. Cardiomegaly without radiographic evidence of congestive failure. 2. Layering pleural effusions with bibasilar atelectasis. Electronically signed by: Justo Mejias M.D. 11/18/2016 3:41 PM Dictated Date/Time: 11/18/2016 3:40 PM
[2016-11-18] MEDS ORDERED: FUROSEMIDE INJ 20 MG in SYRINGE 0 ML IV ONE (19:00)
[2016-11-18] MEDS: DEXTROMETHORPHAN POLYMR COMPLX 30 MG/5 ML UDP PO PRN (19:08)
[2016-11-18] MEDS: DICLOFENAC SOD 1% GEL 100 GM TUBE EXT SCH (20:20)
[2016-11-18] MEDS: SIMVASTATIN 20 MG TAB PO SCH (20:20)
[2016-11-18] MEDS: ENOXAPARIN 40 MG/0.4 ML SYR SQ SCH (20:22)
[2016-11-19] VITALS (7 sets, daily range): BP systolic 115–178; BP diastolic 74–87; PULSE 88–111; TEMP 36.6–37.3; O2SAT 95–99
[2016-11-19] MEDS: ACETAMINOPHEN 325 MG TAB PO SCH ×4 (02:01→20:28)
[2016-11-19] MEDS: LEVOTHYROXINE 88 MCG TAB PO SCH (06:41)
[2016-11-19 06:57] LABS: HEMATOCRIT 35.5 % (37-47); MEAN CELL VOLUME 89.2 fL (80-100); MEAN CORPUSCULAR HEMOGLOBIN 28.4 pg (25-34); MEAN CORPUSCULAR HGB CONC 31.8 g/dl (32-36); MEAN PLATELET VOLUME 9.9 fL (7.4-10.4); PLATELET COUNT 245 K/uL (130-400); RED BLOOD COUNT 3.98 M/uL (4.2-5.4)
[2016-11-19 07:30] LABS: CALCIUM 8.3 mg/dl (8.5-10.1); CREATININE 0.91 mg/dl (0.60-1.20); POTASSIUM 3.9 mmol/L (3.5-5.1)
[2016-11-19] MEDS: ALBUT/IPRATROP 3MG/0.5MG NEB 3 ML VIAL INH SCH ×4 (07:37→19:45)
[2016-11-19] MEDS: BENZONATATE 100MG CAP PO SCH ×3 (07:59→20:28)
[2016-11-19] MEDS ORDERED: FUROSEMIDE 20 MG TAB PO SCH (08:00)
[2016-11-19] MEDS: CITALOPRAM 40 MG TAB PO SCH (08:00)
[2016-11-19] MEDS: CYANOCOBALAMIN 500 MCG TAB (VIT B-12) PO SCH (08:01)
[2016-11-19] MEDS: DEXTROMETHORPHAN POLYMR COMPLX 30 MG/5 ML UDP PO PRN ×2 (08:01→22:30)
[2016-11-19] MEDS: POTASSIUM CHLORIDE 20 MEQ TABCR PO SCH ×2 (08:01→20:27)
[2016-11-19] MEDS: CYCLOBENZAPRINE HCL 5 MG TAB PO SCH ×3 (08:02→20:26)
[2016-11-19] MEDS: NYSTATIN SUSP 500,000 U/5 ML UDC PO SCH ×4 (08:02→20:27)
[2016-11-19] MEDS: PANTOprazole SOD 40 MG TAB PO SCH ×2 (08:02→20:28)
[2016-11-19] MEDS: TIOTROPIUM BROMIDE 5 PUFF/90 MCG INH INH SCH (08:03)
[2016-11-19] MEDS: BUDESONIDE/FORMOTEROL FUMARATE 160/4.5 60 PUFFS/INHALER INH SCH ×2 (08:03→20:26)
[2016-11-19] MEDS: GUAIFENESIN 600 MG TABCR PO SCH ×2 (08:04→20:26)
[2016-11-19] MEDS: LIDODERM (LIDOCAINE) PATCH 5% TD SCH (08:05)
[2016-11-19] MEDS: PrednisoLONE ACET 1% OP SUSP 5 ML BTL OPL SCH ×4 (08:05→20:26)
[2016-11-19] MEDS: KETOROLAC 0.5% OP SOLN 5 ML BTL OPL SCH ×4 (08:06→20:26)
[2016-11-19] MEDS: BOOST VANILLA PO SCH ×6 (08:10→20:26)
[2016-11-19 11:17] LABS: INFLUENZA A RAPID CULTURE NONE DETECTED (NONE DETECTED); INFLUENZA B RAPID CULTURE NONE DETECTED (NONE DETECTED); INFLUENZA VIRUS CULT SOURCE RESPIRATORY-NARES
[2016-11-19] MEDS: GABAPENTIN 300 MG CAP PO SCH (11:31)
[2016-11-19] MEDS ORDERED: FUROSEMIDE 40 MG/4 ML VIAL IV STA (13:36)
--- NOTE | 2016-11-19 16:42 | Hospitalist Progress Note ---
Hospitalist Progress Note Date of Service Nov 19, 2016. Subjective Pt evaluation today including: conversation w/ patient, physical exam, chart review, lab review, review of studies, review of inpatient medication list Patient had acute SOB overnight improved with lasix Constitutional: No fever Eyes: No worsening of vision ENT: No hearing loss Respiratory: + cough, + shortness of breath, No sputum, No wheezing Cardiovascular: + chest pain Abdomen: No constipation, No pain, No vomiting Musculoskeletal: No joint pain Female : No dysuria Neurologic: No memory loss Psychiatric: No depression symptoms Medications Current Inpatient Medications Medications (Trade) Dose Ordered Sig/Natasha Route Start Time Stop Time Status Last Admin Dose Admin Enoxaparin Sodium (Lovenox Inj) 40 mg Q24H SQ 11/11/16 20:00 12/11/16 19:59 11/18/16 20:22 40 MG Al Hydrox/Mg Hydrox/Simethicone (Maalox Max Susp) 15 ml Q4H PRN PO 11/11/16 15:15 12/11/16 15:14 Ondansetron HCl (Zofran Inj) 4 mg Q6H PRN IV 11/11/16 15:15 12/11/16 15:14 Albuterol/ Ipratropium (Duoneb) 3 ml QIDR INH 11/11/16 16:00 12/11/16 15:59 11/19/16 15:30 3 ML Acetaminophen/ Butalbital/ Caffeine (Fioricet Tab) 1 tab Q4 PRN PO 11/11/16 16:30 12/11/16 16:29 Baclofen (Lioresal Tab) 10 mg TID PRN PO 11/11/16 16:30 12/11/16 16:29 11/17/16 14:06 10 MG Citalopram Hydrobromide (celeXA TAB) 40 mg DAILY PO 11/12/16 08:00 12/12/16 07:59 11/19/16 08:00 40 MG Cyanocobalamin (Vitamin B-12 Tab) 1,000 mcg DAILY PO 11/12/16 08:00 12/12/16 07:59 11/19/16 08:01 1,000 MCG Gabapentin (Neurontin Cap) 300 mg DAILY@1200 PO 11/12/16 12:00 12/12/16 11:59 11/19/16 11:31 300 MG Ketorolac Tromethamine (Acular 0.5% Oph Soln) 1 drops QID OPL 11/11/16 17:00 12/11/16 16:59 11/19/16 16:04 1 DROPS Levothyroxine Sodium (Synthroid Tab) 88 mcg DAILYBB PO 11/12/16 06:30 12/12/16 06:29 11/19/16 06:41 88 MCG Prednisolone Acetate (Pred Forte 1% Oph Susp) 1 drops QID OPL 11/11/16 17:00 12/11/16 16:59 11/19/16 16:04 1 DROPS Ropinirole HCl (Requip Tab) 0.5 mg HS PRN PO 11/11/16 16:30 12/11/16 16:29 11/16/16 22:17 0.5 MG Simvastatin (Zocor Tab) 20 mg HS PO 11/11/16 22:00 12/11/16 21:59 11/18/16 20:20 20 MG Pantoprazole Sodium (Protonix Tab) 40 mg BID PO 11/11/16 20:00 12/11/16 19:59 11/19/16 08:02 40 MG Potassium Chloride (Klor-Con Tab) 20 meq BID PO 11/11/16 20:00 12/11/16 19:59 11/19/16 08:01 20 MEQ Tiotropium [place] (Spiriva Handihaler Inhaler) 1 puff DAILY INH 11/12/16 08:00 12/12/16 07:59 11/19/16 08:03 1 PUFF Miscellaneous Information (Order Awaiting Action) 1 ea QS N/A 11/12/16 00:00 12/12/16 00:00 Menthol (Nice Alexis) 1 alexis PRN PRN PO 11/11/16 19:00 12/11/16 18:59 11/11/16 20:02 1 ALEXIS Tramadol HCl (Ultram Tab) 50 mg Q4H PRN PO 11/11/16 19:15 12/11/16 19:14 11/18/16 13:51 50 MG Prednisone/ Prednisone (PredniSONE TAB/ PredniSONE TAB) 27.5 mg QAM PO 11/12/16 08:00 12/12/16 07:59 Future Hold 11/12/16 07:51 27.5 MG Guaifenesin (Mucinex Contr Rel Tab) 600 mg BID PO 11/12/16 14:29 12/12/16 14:28 11/19/16 08:04 600 MG Budesonide/ Formoterol Fumarate (Symbicort 160/ 4.5 Inh) 2 puffs BID INH 11/15/16 08:00 12/15/16 07:59 11/19/16 08:03 2 PUFFS Diclofenac Sodium (Voltaren 1% Top Gel) 1 appln HS EXT 11/16/16 22:00 12/16/16 21:59 11/18/16 20:20 1 APPLN Nystatin (Mycostatin Susp) 5 ml QID PO 11/16/16 17:00 11/26/16 16:59 11/19/16 11:32 5 ML Chlorphenir/ Hydrocodone Polistirex (Tussionex Liqd) 5 ml Q12H PRN PO 11/16/16 14:45 11/30/16 14:44 11/17/16 07:21 5 ML Acetaminophen (Tylenol Tab) 650 mg Q6@0200,0600,1400,2000 PO 11/17/16 01:15 12/17/16 01:14 11/19/16 12:52 650 MG Dextromethorphan Polymer Complex (Delsym Susp) 30 mg Q6H PRN PO 11/16/16 22:00 12/16/16 21:59 11/19/16 08:01 30 MG Benzonatate (Tessalon Perles Cap) 100 mg TID PO 11/17/16 08:00 12/17/16 07:59 11/19/16 12:52 100 MG Oxycodone HCl (Roxicodone Immediate Rel Tab) 5 mg Q4H PRN PO 11/16/16 22:00 11/30/16 21:59 11/17/16 16:34 5 MG Enteral Nutritional Formula (Boost) 1 can TID PO 11/17/16 14:00 12/17/16 13:59 11/19/16 13:39 1 CAN Ibuprofen (Advil Tab) 400 mg QID PRN PO 11/17/16 14:30 12/17/16 14:29 Prednisone (PredniSONE TAB) 50 mg DAILY PO 11/18/16 08:00 12/18/16 07:59 11/19/16 08:01 50 MG Cyclobenzaprine HCl (Flexeril Tab) 5 mg TID PO 11/18/16 14:00 12/18/16 13:59 11/19/16 12:52 5 MG Lidocaine (Lidoderm Patch 5%) 1 patch QAM TD 11/19/16 08:00 12/19/16 07:59 11/19/16 08:05 1 PATCH Miscellaneous (Remove Lidoderm Patch) 1 ea DAILY@21 N/A 11/19/16 21:00 12/19/16 20:59 Objective Vital Signs Date Time Temp Pulse Resp B/P Pulse Ox O2 Delivery O2 Flow Rate FiO2 11/19/16 16:13 37.3 111 22 115/74 97 Nasal Cannula 1.0 11/19/16 15:30 99 18 98 Nasal Cannula 1.0 11/19/16 11:32 99 18 97 Nasal Cannula 1.0 11/19/16 08:00 Nasal Cannula 2.0 11/19/16 07:53 36.7 88 20 170/87 97 Nasal Cannula 2.0 169/85 11/19/16 07:37 96 18 99 Nasal Cannula 2.0 11/19/16 00:05 36.6 97 18 178/86 95 Nasal Cannula 2.0 11/19/16 00:00 Nasal Cannula 2.0 11/18/16 19:48 87 18 97 Nasal Cannula 3.0 11/18/16 19:30 107 20 145/84 95 Nasal Cannula 2.0 11/18/16 18:55 112 28 193/81 98 Nasal Cannula 2.0 Physical Exam General Appearance: WD/WN, no apparent distress Eyes: normal inspection ENT: normal ENT inspection Neck: supple, no adenopathy Respiratory/Chest: chest non-tender, + crackles, + rhonchi Cardiovascular: regular rate, rhythm, no edema Abdomen: normal bowel sounds, non tender, soft Laboratory Results Last 24 Hours Test 11/19/16 06:31 11/19/16 06:32 Sodium Level 141 mmol/L Potassium Level 3.9 mmol/L Chloride Level 105 mmol/L Carbon Dioxide Level 29 mmol/L Anion Gap 7.0 mmol/L Blood Urea Nitrogen 32 mg/dl Creatinine 0.91 mg/dl Est Creatinine Clear Calc Drug Dose 53.4 ml/min Estimated GFR () 69.5 Estimated GFR (Non- 60.0 BUN/Creatinine Ratio 35.0 Random Glucose 105 mg/dl Calcium Level 8.3 mg/dl White Blood Count 12.50 K/uL Red Blood Count 3.98 M/uL Hemoglobin 11.3 g/dL Hematocrit 35.5 % Mean Corpuscular Volume 89.2 fL Mean Corpuscular Hemoglobin 28.4 pg Mean Corpuscular Hemoglobin Concent 31.8 g/dl RDW Standard Deviation 55.0 fL RDW Coefficient of Variation 16.8 % Platelet Count 245 K/uL Mean Platelet Volume 9.9 fL Nucleated RBC Absolute Count (auto) 0.05 K/uL Nucleated Red Blood Cells % 0.4 % Assessment and Plan 81-year-old female with a history of possibly mild asthma, Diastolic CHF and chronic bronchitis presented with multiple shortness of breath and cough. Acute bronchitis - cont Duonebs every 4 hrs scheduled, every 2 hrs prn - cont prednsione day #2/5 - appreciate pulmonology input - completed Azithromycin IV day #5 Acute Diastolic CHF - start lasix 40 mg IV daily -strict I&O's -daily weights Right lateral Chest wall musculoskeletal pain - kdur pad - continue flexeril/ NO NSAIDS due to GFR Hypoxic Respiratory failure - resolved - 2 step done showed no need for home o2 Abdominal Pain - CT abdomen reviewed - resolved Hypothyroidism -continue levothyroxine sodium 88 g by mouth daily Hypercholesterolemia- -continue simvastatin 20 mg by mouth at bedtime. Orthostatic hypotension- -holding midodrine 3 times a day due to significant elevated BP. Anxiety -Continue citalopram to 40 mg by mouth daily. DVT prophylaxis Lovenox 40 mg subQ daily TEDS, SCDs FULL CODE
[2016-11-19] MEDS: ENOXAPARIN 40 MG/0.4 ML SYR SQ SCH (20:27)
[2016-11-19] MEDS: SIMVASTATIN 20 MG TAB PO SCH (20:27)
[2016-11-19] MEDS: DICLOFENAC SOD 1% GEL 100 GM TUBE EXT SCH (20:27)
[2016-11-20] VITALS (11 sets, daily range): BP systolic 126–186; BP diastolic 66–87; PULSE 89–106; TEMP 36.4–36.8; O2SAT 93–98
[2016-11-20] MEDS: ROPINIROLE HCL 0.25 MG TAB PO PRN ×2 (02:30→08:11)
[2016-11-20] MEDS: ACETAMINOPHEN 325 MG TAB PO SCH ×4 (02:31→20:05)
[2016-11-20] MEDS: LEVOTHYROXINE 88 MCG TAB PO SCH (06:21)
[2016-11-20] MEDS: ALBUT/IPRATROP 3MG/0.5MG NEB 3 ML VIAL INH SCH ×4 (07:41→20:17)
[2016-11-20 07:49] LABS: MEAN CELL VOLUME 90.7 fL (80-100); MEAN CORPUSCULAR HEMOGLOBIN 29.3 pg (25-34); MEAN CORPUSCULAR HGB CONC 32.4 g/dl (32-36); MEAN PLATELET VOLUME 9.6 fL (7.4-10.4); PLATELET COUNT 225 K/uL (130-400); RED BLOOD COUNT 3.75 M/uL (4.2-5.4); WHITE BLOOD COUNT 10.45 K/uL (4.8-10.8)
[2016-11-20] MEDS: PrednisoLONE ACET 1% OP SUSP 5 ML BTL OPL SCH ×4 (08:08→20:03)
[2016-11-20] MEDS: BUDESONIDE/FORMOTEROL FUMARATE 160/4.5 60 PUFFS/INHALER INH SCH ×2 (08:08→20:04)
[2016-11-20] MEDS: NYSTATIN SUSP 500,000 U/5 ML UDC PO SCH ×4 (08:09→20:05)
[2016-11-20] MEDS: KETOROLAC 0.5% OP SOLN 5 ML BTL OPL SCH ×4 (08:09→20:03)
[2016-11-20] MEDS: BACLOFEN 10 MG TAB PO PRN (08:10)
[2016-11-20] MEDS: BENZONATATE 100MG CAP PO SCH ×3 (08:12→20:04)
[2016-11-20] MEDS: CYANOCOBALAMIN 500 MCG TAB (VIT B-12) PO SCH (08:13)
[2016-11-20] MEDS: CITALOPRAM 40 MG TAB PO SCH (08:13)
[2016-11-20] MEDS: PANTOprazole SOD 40 MG TAB PO SCH ×2 (08:13→20:05)
[2016-11-20] MEDS: GUAIFENESIN 600 MG TABCR PO SCH ×2 (08:14→20:05)
[2016-11-20] MEDS: POTASSIUM CHLORIDE 20 MEQ TABCR PO SCH ×2 (08:15→20:05)
[2016-11-20] MEDS: CYCLOBENZAPRINE HCL 5 MG TAB PO SCH ×3 (08:15→20:05)
[2016-11-20] MEDS: TIOTROPIUM BROMIDE 5 PUFF/90 MCG INH INH SCH (08:17)
[2016-11-20] MEDS: BOOST VANILLA PO SCH ×6 (08:18→20:00)
[2016-11-20 08:21] LABS: BUN/CREATININE RATIO 33.6 (10-20); CALCIUM 8.1 mg/dl (8.5-10.1); CREATININE 0.98 mg/dl (0.60-1.20); MAGNESIUM 2.2 mg/dl (1.8-2.4); POTASSIUM 3.9 mmol/L (3.5-5.1)
[2016-11-20] MEDS ORDERED: GUAIFENESIN SUGAR FREE 100 MG/5 ML UDC PO STA (08:51)
[2016-11-20] MEDS ORDERED: GUAIFENESIN SUGAR FREE 100 MG/5 ML UDC PO PRN (09:00)
[2016-11-20] MEDS: LIDODERM (LIDOCAINE) PATCH 5% TD SCH (09:16)
[2016-11-20] MEDS: GABAPENTIN 300 MG CAP PO SCH (11:38)
[2016-11-20] MEDS ORDERED: FUROSEMIDE 40 MG/4 ML VIAL IV STA (15:14)
--- NOTE | 2016-11-20 15:18 | Hospitalist Progress Note ---
Hospitalist Progress Note Date of Service Nov 20, 2016. Subjective Pt evaluation today including: conversation w/ patient, physical exam, chart review, lab review, review of studies, review of inpatient medication list Patient had improved SOB however continued cough Shan any fevers, good urine output from lasix Constitutional: No fever Eyes: No worsening of vision ENT: No hearing loss Respiratory: + shortness of breath, + sputum, No cough Cardiovascular: + chest pain (right lateral chest wall) Abdomen: No constipation, No pain, No vomiting Musculoskeletal: No joint pain Female : No dysuria, No hematuria Neurologic: No memory loss Psychiatric: No depression symptoms Heme: No abnormal bleeding/bruising Endo: No fatigue Skin: No itch, No rash Objective Vital Signs Date Time Temp Pulse Resp B/P Pulse Ox O2 Delivery O2 Flow Rate FiO2 11/20/16 14:58 36.6 106 20 129/66 95 Room Air 11/20/16 14:24 101 18 97 Room Air 11/20/16 11:26 95 18 94 Room Air 11/20/16 08:00 98 Room Air 11/20/16 07:42 92 18 98 Nasal Cannula 1.0 11/20/16 07:22 36.8 94 20 154/87 96 Room Air 11/20/16 01:39 101 143/82 11/20/16 00:00 36.8 99 22 186/87 97 Nasal Cannula 1.0 11/20/16 00:00 Nasal Cannula 1.0 11/19/16 19:45 99 18 98 Nasal Cannula 1.0 11/19/16 16:13 37.3 111 22 115/74 97 Nasal Cannula 1.0 11/19/16 16:00 Nasal Cannula 2.0 11/19/16 15:30 99 18 98 Nasal Cannula 1.0 Physical Exam General Appearance: WD/WN, no apparent distress Eyes: normal inspection ENT: normal ENT inspection, TMs normal Neck: supple Respiratory/Chest: lungs clear, normal breath sounds Cardiovascular: regular rate, rhythm, no edema Abdomen: normal bowel sounds, non tender, soft Extremities: normal range of motion, non-tender Neurologic/Psychiatric: medical housekeeper II-XII nml as tested, no motor/sensory deficits, alert, oriented x 3 Skin: normal color, warm/dry Lymphatic: no adenopathy Laboratory Results Last 24 Hours Test 11/20/16 07:40 White Blood Count 10.45 K/uL Red Blood Count 3.75 M/uL Hemoglobin 11.0 g/dL Hematocrit 34.0 % Mean Corpuscular Volume 90.7 fL Mean Corpuscular Hemoglobin 29.3 pg Mean Corpuscular Hemoglobin Concent 32.4 g/dl RDW Standard Deviation 56.4 fL RDW Coefficient of Variation 16.8 % Platelet Count 225 K/uL Mean Platelet Volume 9.6 fL Sodium Level 140 mmol/L Potassium Level 3.9 mmol/L Chloride Level 101 mmol/L Carbon Dioxide Level 32 mmol/L Anion Gap 7.0 mmol/L Blood Urea Nitrogen 33 mg/dl Creatinine 0.98 mg/dl Est Creatinine Clear Calc Drug Dose 49.5 ml/min Estimated GFR () 63.6 Estimated GFR (Non- 54.9 BUN/Creatinine Ratio 33.6 Random Glucose 93 mg/dl Calcium Level 8.1 mg/dl Magnesium Level 2.2 mg/dl Assessment and Plan 81-year-old female with a history of possibly mild asthma, Diastolic CHF and chronic bronchitis presented with multiple shortness of breath and cough. Acute bronchitis - cont Duonebs every 4 hrs scheduled, every 2 hrs prn - cont prednisone day #3 - appreciate pulmonology input - completed Azithromycin IV day #5 Acute Diastolic CHF -continue lasix 40 mg IV daily -strict I&O's -daily weights Tachycardia - start metoprolol 12.5 mg daily Right lateral Chest wall musculoskeletal pain - kdur pad - continue flexeril/ NO NSAIDS due to GFR Hypoxic Respiratory failure - resolved - 2 step done showed no need for home o2 Abdominal Pain - CT abdomen reviewed - resolved Hypothyroidism -continue levothyroxine sodium 88 g by mouth daily Hypercholesterolemia- -continue simvastatin 20 mg by mouth at bedtime. Orthostatic hypotension- -holding midodrine 3 times a day due to significant elevated BP. Anxiety -Continue citalopram to 40 mg by mouth daily. DVT prophylaxis Lovenox 40 mg subQ daily TEDS, SCDs FULL CODE
[2016-11-20] MEDS: FUROSEMIDE INJ 40 MG in SYRINGE 0 ML IV SCH (17:08)
[2016-11-20] MEDS: MIDODRINE 2.5 MG TAB PO SCH (17:09)
[2016-11-20] MEDS: ENOXAPARIN 40 MG/0.4 ML SYR SQ SCH (20:03)
[2016-11-20] MEDS: SIMVASTATIN 20 MG TAB PO SCH (21:47)
[2016-11-20] MEDS: DICLOFENAC SOD 1% GEL 100 GM TUBE EXT SCH (21:47)
[2016-11-21] VITALS (9 sets, daily range): BP systolic 127–153; BP diastolic 75–87; PULSE 71–99; TEMP 36.4–36.8; O2SAT 93–97
[2016-11-21] MEDS: ACETAMINOPHEN 325 MG TAB PO SCH ×4 (02:13→20:34)
[2016-11-21] MEDS: LEVOTHYROXINE 88 MCG TAB PO SCH (05:52)
[2016-11-21] MEDS: ALBUT/IPRATROP 3MG/0.5MG NEB 3 ML VIAL INH SCH ×5 (07:23→20:00)
[2016-11-21 08:15] LABS: BUN/CREATININE RATIO 28.9 (10-20); CALCIUM 8.2 mg/dl (8.5-10.1); CREATININE 1.1 mg/dl (0.60-1.20); MAGNESIUM 2.2 mg/dl (1.8-2.4); POTASSIUM 3.7 mmol/L (3.5-5.1)
[2016-11-21] MEDS: PANTOprazole SOD 40 MG TAB PO SCH ×2 (08:41→20:33)
[2016-11-21] MEDS: TIOTROPIUM BROMIDE 5 PUFF/90 MCG INH INH SCH (08:41)
[2016-11-21] MEDS: PrednisoLONE ACET 1% OP SUSP 5 ML BTL OPL SCH ×4 (08:42→20:30)
[2016-11-21] MEDS: BUDESONIDE/FORMOTEROL FUMARATE 160/4.5 60 PUFFS/INHALER INH SCH (08:42)
[2016-11-21] MEDS: BENZONATATE 100MG CAP PO SCH ×3 (08:43→20:32)
[2016-11-21] MEDS: MIDODRINE 2.5 MG TAB PO SCH ×3 (08:44→17:03)
[2016-11-21] MEDS: POTASSIUM CHLORIDE 20 MEQ TABCR PO SCH ×2 (08:45→20:34)
[2016-11-21] MEDS: GUAIFENESIN 600 MG TABCR PO SCH ×2 (08:45→20:35)
[2016-11-21] MEDS: CYANOCOBALAMIN 500 MCG TAB (VIT B-12) PO SCH (08:46)
[2016-11-21] MEDS: CITALOPRAM 40 MG TAB PO SCH (08:46)
[2016-11-21] MEDS: CYCLOBENZAPRINE HCL 5 MG TAB PO SCH ×3 (08:46→20:34)
[2016-11-21] MEDS: METOPROLOL SUCC 25MG EXT REL TAB PO SCH (08:47)
[2016-11-21] MEDS: KETOROLAC 0.5% OP SOLN 5 ML BTL OPL SCH ×4 (08:49→20:31)
[2016-11-21] MEDS: NYSTATIN SUSP 500,000 U/5 ML UDC PO SCH ×4 (08:49→20:35)
[2016-11-21] MEDS: BOOST VANILLA PO SCH ×6 (08:49→21:59)
[2016-11-21] MEDS: LIDODERM (LIDOCAINE) PATCH 5% TD SCH (08:49)
[2016-11-21] MEDS: FUROSEMIDE INJ 40 MG in SYRINGE 0 ML IV SCH ×2 (08:56→17:01)
[2016-11-21] MEDS: DEXTROMETHORPHAN POLYMR COMPLX 30 MG/5 ML UDP PO PRN (09:01)
[2016-11-21] MEDS: TRAMADOL HCL 50 MG TAB PO PRN (09:05)
--- NOTE | 2016-11-21 09:34 | Progress Note ---
Subjective Date of Service: Nov 21, 2016. Subjective pt feels lethargic and is short of breath, cough but not able to fully expectorate any mucus. Problem List Medical Problems: (1) Cervical strain Status: Acute (2) Fall Status: Acute (3) Head injury Status: Acute (4) Head injury Status: Acute (5) Hip pain Status: Acute (6) Hypoxia Status: Acute (7) Pneumonia Status: Acute (8) Syncope Status: Acute (9) Traumatic compression fracture of third thoracic vertebra Status: Acute Review of Systems Constitutional: + weakness, No chills, No fever Respiratory: + cough, + shortness of breath, + sputum Cardiac: + edema, No chest pain Abdomen: No nausea, No pain, No vomiting Female : No dysuria, No urinary frequency Objective Vital Signs Date Time Temp Pulse Resp B/P Pulse Ox O2 Delivery O2 Flow Rate FiO2 11/21/16 07:23 98 16 93 Room Air 11/21/16 07:22 36.4 82 16 151/81 93 Room Air 11/20/16 23:51 36.4 89 20 126/74 93 Room Air 11/20/16 20:17 101 16 95 Room Air 11/20/16 19:46 Room Air 11/20/16 16:00 98 Room Air 11/20/16 14:58 36.6 106 20 129/66 95 Room Air 11/20/16 14:24 101 18 97 Room Air 11/20/16 11:26 95 18 94 Room Air Physical Exam General Appearance: WD/WN, + mild distress Neck: supple, no JVD Respiratory/Chest: + respiratory distress, + decreased breath sounds, + accessory muscle use, + rhonchi Cardiovascular: regular rate, rhythm, no murmur Abdomen: normal bowel sounds, non tender, soft Extremities: no pedal edema, no calf tenderness Laboratory Results Last 24 Hours Test 11/21/16 07:24 Sodium Level 142 mmol/L Potassium Level 3.7 mmol/L Chloride Level 102 mmol/L Carbon Dioxide Level 30 mmol/L Anion Gap 10.0 mmol/L Blood Urea Nitrogen 32 mg/dl Creatinine 1.10 mg/dl Est Creatinine Clear Calc Drug Dose 43.3 ml/min Estimated GFR () 55.3 Estimated GFR (Non- 47.7 BUN/Creatinine Ratio 28.9 Random Glucose 90 mg/dl Calcium Level 8.2 mg/dl Magnesium Level 2.2 mg/dl Assessment and Plan 81-presented with shortness of breath, has bronchitis and acute on chronic diastolic heart failure i personally reviewed labs and vital signs 3/6 Acute bronchitis, restart antibiotics levaquin for Duonebs and formoterol use solu-medrol , checked chest x ray myself and did not see significant progression of illness Acute on Chronic Diastolic CHFseems stable lasix iv bid metoprolol 12.5 mg daily Right lateral Chest wall musculoskeletal pain - kdur pad flexeril/ NO NSAIDS due to GFR Hypoxic Respiratory failure- resolved - 2 step done showed no need for home o2 Abdominal Pain- resolved CT with no pathology Orthostatic hypotension- midodrine Hypothyroidism stable levothyroxine sodium 88 g by mouth daily Hypercholesterolemia- simvastatin 20 mg by mouth at bedtime. Anxiety citalopram to 40 mg by mouth daily. DVT prophylaxis Lovenox 40 mg subQ daily FULL CODE
[2016-11-21] MEDS ORDERED: FUROSEMIDE 40 MG TAB PO SCH (09:45)
[2016-11-21] MEDS: GABAPENTIN 300 MG CAP PO SCH (12:56)
--- NOTE | 2016-11-21 13:06 | DIAGNOSTIC IMAGING REPORT ---
CHEST ONE VIEW PORTABLE HISTORY: eval for change in effusions COMPARISON: Chest 11/18/2016. FINDINGS: Small to moderate right pleural effusion is unchanged in size. Small left pleural effusion has decreased in size. Linear density left lung base consistent with subsegmental atelectasis are scarring. No pneumothorax. Cervical and thoracolumbar spinal fusion hardware is again noted. There are bilateral shoulder prostheses. The lungs and remain clear. The heart is mildly enlarged. No evidence for pulmonary edema. IMPRESSION: 1. [id number] right pleural effusion remains unchanged. 2. Small left pleural effusion has decreased in size. 3. Stable mild cardiomegaly. Electronically signed by: Jeff Maldonado M.D. 11/21/2016 1:04 PM Dictated Date/Time: 11/21/2016 1:03 PM
[2016-11-21] MEDS: METHYLPREDNISOLONE IV 40 MG in SYRINGE 0 ML IV SCH ×2 (13:36→23:26)
--- NOTE | 2016-11-21 15:51 | PULMONARY PROGRESS NOTE ---
DATE: 11/21/2016 TIME: 03:10 p.m. SUBJECTIVE: The patient continues to complain of cough and shortness of breath. She states she does not feel much better. She is being seen at the request of the family. She states she is not able to bring up phlegm. She still feels congested. She is not having any chest pain. There have been no chills, fevers or sweats. Her appetite is good. OBJECTIVE: GENERAL: The patient looked mildly short of breath. Temperature is 36.7. HEENT: She is somewhat puffy in the face. I suspect this is from being on prednisone periodically. ENT exam is otherwise unremarkable. HEART: Heart rate is 99 beats per minute. Blood pressure 153/87. CHEST: Respiratory rate is 16 breaths per minute and not labored. Auscultation reveals rales posteriorly bilaterally. These would be in the lower third of the lungs. Oxygen saturation was 97% on room air. ABDOMEN: Soft. Good bowel sounds were heard. EXTREMITIES: Showed no cyanosis, clubbing or edema. LABORATORY DATA: Blood gas was done back on 11 of November showing a pH of 7.51 with a pCO2 of 34 and a pO2 of 67 on room air. Electrolytes show sodium 142, potassium 3.7, chloride 102, and bicarbonate 30. BUN was 32 with a creatinine of 1.1. Blood sugar was 90. Calcium was 8.2. Magnesium is 2.2. Flu test was negative. The patient had a chest x-ray done today. This shows small to moderate right pleural effusion, which is unchanged. The left pleural effusion is decreased slightly. She does have some increased opacity at the left lung base. This may represent subsegmental atelectasis. That density did almost look like a Celaya's hump. However, she has had a CAT scan of the chest done recently on the that did not show evidence of pulmonary embolic disease. IMPRESSIONS: 1. Asthma with exacerbation. 2. Status post plication of the right hemidiaphragm. COMMENTS AND RECOMMENDATIONS: Case was discussed with Dr. Jett. The patient has not been on antibiotics for several days. It appears that she had some azithromycin just for a day or two. Levaquin was started. I would have a tendency to decrease the furosemide. I do not believe she is wet. She had a normal BNP. It may be making it harder for her to clear the secretions. She is on formoterol by treatments. She is also back on methylprednisolone. She is already trying a flutter valve without a lot of success. We will try the vibration vest and see if that helps her at all.
[2016-11-21] MEDS: LEVOFLOXACIN / D5W 750 MG in PREMIXED IN D5W 150 ML IV SCH (16:58)
[2016-11-21] MEDS: FORMOTEROL FUMA NEBULIZER SOLN 20 MCG/2 ML VIAL INH SCH (20:00)
[2016-11-21] MEDS: ENOXAPARIN 40 MG/0.4 ML SYR SQ SCH (20:36)
[2016-11-21] MEDS: SIMVASTATIN 20 MG TAB PO SCH (21:58)
[2016-11-21] MEDS: DICLOFENAC SOD 1% GEL 100 GM TUBE EXT SCH (21:59)
[2016-11-22] VITALS (10 sets, daily range): BP systolic 99–167; BP diastolic 66–92; PULSE 85–109; TEMP 36.7–37; O2SAT 92–96
[2016-11-22] MEDS: ACETAMINOPHEN 325 MG TAB PO SCH ×4 (01:32→19:44)
[2016-11-22] MEDS: LEVOTHYROXINE 88 MCG TAB PO SCH (06:23)
[2016-11-22] MEDS: FORMOTEROL FUMA NEBULIZER SOLN 20 MCG/2 ML VIAL INH SCH ×2 (07:25→20:10)
[2016-11-22] MEDS: ALBUT/IPRATROP 3MG/0.5MG NEB 3 ML VIAL INH SCH ×4 (07:25→20:10)
[2016-11-22 07:53] LABS: BUN/CREATININE RATIO 30.7 (10-20); CALCIUM 8.1 mg/dl (8.5-10.1); CREATININE 1.2 mg/dl (0.60-1.20); POTASSIUM 3.9 mmol/L (3.5-5.1)
[2016-11-22] MEDS: NYSTATIN SUSP 500,000 U/5 ML UDC PO SCH ×4 (08:07→19:46)
[2016-11-22] MEDS: LIDODERM (LIDOCAINE) PATCH 5% TD SCH (08:07)
[2016-11-22] MEDS: GUAIFENESIN 600 MG TABCR PO SCH ×2 (08:07→19:48)
[2016-11-22] MEDS: MIDODRINE 2.5 MG TAB PO SCH ×3 (08:07→16:32)
[2016-11-22] MEDS: KETOROLAC 0.5% OP SOLN 5 ML BTL OPL SCH ×4 (08:08→19:41)
[2016-11-22] MEDS: BENZONATATE 100MG CAP PO SCH ×3 (08:08→19:47)
[2016-11-22] MEDS: PrednisoLONE ACET 1% OP SUSP 5 ML BTL OPL SCH ×4 (08:08→19:41)
[2016-11-22] MEDS: CYCLOBENZAPRINE HCL 5 MG TAB PO SCH ×3 (08:09→19:49)
[2016-11-22] MEDS: PANTOprazole SOD 40 MG TAB PO SCH ×2 (08:09→19:47)
[2016-11-22] MEDS: FUROSEMIDE INJ 40 MG in SYRINGE 0 ML IV SCH ×2 (08:09→16:23)
[2016-11-22] MEDS: BOOST VANILLA PO SCH ×6 (08:09→19:42)
[2016-11-22] MEDS: POTASSIUM CHLORIDE 20 MEQ TABCR PO SCH ×2 (08:09→19:46)
[2016-11-22] MEDS: METOPROLOL SUCC 25MG EXT REL TAB PO SCH (08:10)
[2016-11-22] MEDS: CITALOPRAM 40 MG TAB PO SCH (08:10)
[2016-11-22] MEDS: CYANOCOBALAMIN 500 MCG TAB (VIT B-12) PO SCH (08:10)
[2016-11-22] MEDS: TIOTROPIUM BROMIDE 5 PUFF/90 MCG INH INH SCH (08:11)
[2016-11-22] MEDS: TRAMADOL HCL 50 MG TAB PO PRN ×2 (08:22→16:19)
--- NOTE | 2016-11-22 11:30 | PULMONARY PROGRESS NOTE ---
DATE: 11/22/2016 TIME: 11:00 a.m. SUBJECTIVE: The patient is feeling slightly better. She apparently is not coughing as much according to nursing staff. She has not expectorated any phlegm. She complains of pain along the right side of her lower chest. Because of the pain, respiratory did not initiate the vest therapy, which seems reasonable. The patient has been out of bed to the commode. Reportedly, she slept better last night. OBJECTIVE: VITAL SIGNS: Temperature is 36.7. EARS, NOSE, AND THROAT: Unchanged from yesterday. HEART: Heart rate is 88 beats per minute. Blood pressure 164/91. CHEST: Respiratory rate is 16 breaths per minute. The breath sounds are diminished. Mild rhonchi are heard bilaterally. Saturation on room air was 94%. EXTREMITIES: Showed no edema. LABORATORY DATA: Electrolytes show sodium 136, potassium 3.9, chloride 96, and bicarbonate 28. The BUN was 37 with a creatinine of 1.2. Random blood sugar was 171. IMPRESSIONS: 1. Asthma with exacerbation. 2. Status post plication of the right hemidiaphragm. 3. Right-sided chest pain -- possibly related to rib fractures. COMMENTS AND RECOMMENDATIONS: I would continue with her current treatment in light of the fact she seems somewhat better today. This would include the formoterol, furosemide, levofloxacin, methylprednisolone, tiotropium, and the DuoNebs.
[2016-11-22] MEDS: METHYLPREDNISOLONE IV 40 MG in SYRINGE 0 ML IV SCH ×2 (13:31→23:23)
[2016-11-22] MEDS: GABAPENTIN 300 MG CAP PO SCH (13:32)
--- NOTE | 2016-11-22 18:56 | Progress Note ---
Subjective Date of Service: Nov 22, 2016. Subjective this pt looks slighty improved, daughter Grisel at bedside and updated, still considering if bronchoscopy may help hasten recovery Problem List Medical Problems: (1) Cervical strain Status: Acute (2) Fall Status: Acute (3) Head injury Status: Acute (4) Head injury Status: Acute (5) Hip pain Status: Acute (6) Hypoxia Status: Acute (7) Pneumonia Status: Acute (8) Syncope Status: Acute (9) Traumatic compression fracture of third thoracic vertebra Status: Acute Review of Systems Constitutional: + weakness, No chills, No fever Respiratory: + cough, + dyspnea on exertion, No shortness of breath, No sputum , No wheezing Cardiac: No chest pain, No edema Abdomen: No diarrhea, No nausea, No pain, No vomiting Female : No dysuria, No urinary frequency Psychiatric: No anhedonism, No depression symptoms Objective Vital Signs Date Time Temp Pulse Resp B/P Pulse Ox O2 Delivery O2 Flow Rate FiO2 11/22/16 07:25 88 16 96 Room Air 11/22/16 06:58 36.7 90 18 164/91 94 Room Air 11/22/16 00:00 Room Air 11/21/16 23:03 36.8 92 16 127/75 94 Room Air 11/21/16 19:57 76 16 95 Room Air 11/21/16 16:00 97 Room Air 11/21/16 15:56 82 16 95 Room Air 11/21/16 14:43 36.7 99 16 153/87 97 Room Air 11/21/16 11:45 71 14 97 Room Air Physical Exam General Appearance: WD/WN, + mild distress Neck: supple, no JVD Respiratory/Chest: + decreased breath sounds, + accessory muscle use, + rhonchi Cardiovascular: regular rate, rhythm, no murmur Abdomen: normal bowel sounds, non tender, soft Extremities: + pedal edema, + swelling Neurologic/Psychiatric: alert, oriented x 3 Laboratory Results Last 24 Hours Test 11/22/16 07:00 Sodium Level 136 mmol/L Potassium Level 3.9 mmol/L Chloride Level 96 mmol/L Carbon Dioxide Level 28 mmol/L Anion Gap 12.0 mmol/L Blood Urea Nitrogen 37 mg/dl Creatinine 1.20 mg/dl Est Creatinine Clear Calc Drug Dose 39.9 ml/min Estimated GFR () 49.8 Estimated GFR (Non- 43.0 BUN/Creatinine Ratio 30.7 Random Glucose 171 mg/dl Calcium Level 8.1 mg/dl Assessment and Plan 81-presented with shortness of breath, has bronchitis and acute on chronic diastolic heart failure i personally reviewed labs and vital signs 11/22 and reviewed cxr of 11/21 with tax examiner Acute bronchitis, restarted levaquin 11/21 for Duonebs and formoterol, continue solu-medrol Acute on Chronic Diastolic CHF seems stable lasix iv bid, was reduced to q day 11/22 metoprolol 12.5 mg daily, follow PRP Right lateral Chest wall musculoskeletal pain intermittent but improved, steroids may have also helped - kdur pad flexeril/ NO NSAIDS due to GFR Hypoxic Respiratory failure- resolved, not needing supplemental oxygen despite some worsening of subjective dyspnea Abdominal Pain- resolved CT with no pathology Orthostatic hypotension- midodrine Hypothyroidism stable levothyroxine sodium 88 g by mouth daily Hypercholesterolemia- simvastatin 20 mg by mouth at bedtime. Anxiety citalopram to 40 mg by mouth daily. DVT prophylaxis Lovenox 40 mg subQ daily FULL CODE
[2016-11-22] MEDS: ENOXAPARIN 40 MG/0.4 ML SYR SQ SCH (19:44)
[2016-11-22] MEDS: SIMVASTATIN 20 MG TAB PO SCH (20:49)
[2016-11-22] MEDS: DICLOFENAC SOD 1% GEL 100 GM TUBE EXT SCH (20:50)
[2016-11-23] VITALS (11 sets, daily range): BP systolic 135–162; BP diastolic 77–83; PULSE 88–98; TEMP 36.5–36.9; O2SAT 93–100
[2016-11-23] MEDS: ROPINIROLE HCL 0.25 MG TAB PO PRN (00:05)
[2016-11-23] MEDS: ACETAMINOPHEN 325 MG TAB PO SCH ×5 (00:05→23:29)
[2016-11-23] MEDS: LEVOTHYROXINE 88 MCG TAB PO SCH (06:25)
[2016-11-23 06:52] LABS: HEMATOCRIT 33.5 % (37-47); MEAN CELL VOLUME 89.3 fL (80-100); MEAN CORPUSCULAR HEMOGLOBIN 29.6 pg (25-34); MEAN CORPUSCULAR HGB CONC 33.1 g/dl (32-36); MEAN PLATELET VOLUME 10.2 fL (7.4-10.4); PLATELET COUNT 224 K/uL (130-400); RED BLOOD COUNT 3.75 M/uL (4.2-5.4); WHITE BLOOD COUNT 11.34 K/uL (4.8-10.8)
[2016-11-23] MEDS: FORMOTEROL FUMA NEBULIZER SOLN 20 MCG/2 ML VIAL INH SCH ×2 (07:03→19:12)
[2016-11-23 07:25] LABS: BUN/CREATININE RATIO 30.6 (10-20); CALCIUM 8.3 mg/dl (8.5-10.1); CREATININE 1.1 mg/dl (0.60-1.20); POTASSIUM 3.9 mmol/L (3.5-5.1)
[2016-11-23] MEDS: ALBUT/IPRATROP 3MG/0.5MG NEB 3 ML VIAL INH SCH ×4 (07:25→19:12)
[2016-11-23] MEDS ORDERED: FUROSEMIDE INJ 40 MG in SYRINGE 0 ML IV SCH (08:00)
[2016-11-23] MEDS: NYSTATIN SUSP 500,000 U/5 ML UDC PO SCH ×4 (08:15→20:05)
[2016-11-23] MEDS: KETOROLAC 0.5% OP SOLN 5 ML BTL OPL SCH ×4 (08:15→20:05)
[2016-11-23] MEDS: PrednisoLONE ACET 1% OP SUSP 5 ML BTL OPL SCH ×4 (08:15→20:05)
[2016-11-23] MEDS: LIDODERM (LIDOCAINE) PATCH 5% TD SCH (08:15)
[2016-11-23] MEDS: GUAIFENESIN 600 MG TABCR PO SCH ×2 (08:16→20:08)
[2016-11-23] MEDS: METOPROLOL SUCC 25MG EXT REL TAB PO SCH (08:16)
[2016-11-23] MEDS: CYANOCOBALAMIN 500 MCG TAB (VIT B-12) PO SCH (08:16)
[2016-11-23] MEDS: MIDODRINE 2.5 MG TAB PO SCH ×3 (08:17→16:52)
[2016-11-23] MEDS: CYCLOBENZAPRINE HCL 5 MG TAB PO SCH ×3 (08:17→20:07)
[2016-11-23] MEDS: BENZONATATE 100MG CAP PO SCH ×3 (08:18→20:07)
[2016-11-23] MEDS: POTASSIUM CHLORIDE 20 MEQ TABCR PO SCH ×2 (08:18→20:09)
[2016-11-23] MEDS: PANTOprazole SOD 40 MG TAB PO SCH ×2 (08:19→20:06)
[2016-11-23] MEDS: TIOTROPIUM BROMIDE 5 PUFF/90 MCG INH INH SCH (08:21)
[2016-11-23] MEDS: BOOST VANILLA PO SCH ×6 (08:21→20:05)
[2016-11-23] MEDS: CITALOPRAM 40 MG TAB PO SCH (08:21)
--- NOTE | 2016-11-23 12:43 | PULMONARY PROGRESS NOTE ---
DATE: 11/23/2016 TIME: 12:20 p.m. SUBJECTIVE: The patient is feeling better. She is less short of breath. She is still not able to bring up any phlegm, but she does not feel nearly as tight in the chest. Likewise, the pain in the right lateral side is lessening somewhat. She thinks the pain patch may be helping. Overall, this is the best she has felt. OBJECTIVE: GENERAL: The patient appeared comfortable at rest. Temperature is 36.5. She is puffy in the face related to chronic steroids. NECK: Palpation of the neck reveals no lymph nodes. HEART: Heart rate is 90 beats per minute. The rhythm is regular. Blood pressure 162/83. LUNGS: Respiratory rate 16 breaths per minute. Auscultation of the lung madden revealed slightly decreased breath sounds, but no rhonchi at all were heard today. Saturation on room air was 98%. IMPRESSIONS: 1. Asthma with exacerbation. 2. Status post right diaphragm plication. COMMENTS AND RECOMMENDATIONS: The patient seems to be improving daily. The furosemide was decreased to daily and I do agree with that. I believe the levofloxacin could be changed to oral if desired. I believe that her methylprednisolone could be decreased to 20 mg IV q. 12 hours. Would continue with her other treatments as current.
[2016-11-23] MEDS: GABAPENTIN 300 MG CAP PO SCH (12:56)
[2016-11-23] MEDS: LEVOFLOXACIN / D5W 750 MG in PREMIXED IN D5W 150 ML IV SCH (12:57)
--- NOTE | 2016-11-23 14:55 | Progress Note ---
Subjective Date of Service: Nov 23, 2016. Subjective this pt states she feels much better, stll shortness of breath, cough is less but also improved Problem List Medical Problems: (1) Cervical strain Status: Acute (2) Fall Status: Acute (3) Head injury Status: Acute (4) Head injury Status: Acute (5) Hip pain Status: Acute (6) Hypoxia Status: Acute (7) Pneumonia Status: Acute (8) Syncope Status: Acute (9) Traumatic compression fracture of third thoracic vertebra Status: Acute Review of Systems Constitutional: No chills, No fever Respiratory: + cough, + dyspnea on exertion, No shortness of breath, No sputum , No wheezing Cardiac: No chest pain, No edema Abdomen: No diarrhea, No pain, No vomiting Female : No dysuria, No hematuria, No incontinence, No urinary frequency Psychiatric: No anhedonism, No depression symptoms Objective Vital Signs Date Time Temp Pulse Resp B/P Pulse Ox O2 Delivery O2 Flow Rate FiO2 11/23/16 13:52 93 11/23/16 11:47 90 16 98 Room Air 11/23/16 08:00 98 Room Air 11/23/16 07:34 36.5 90 22 162/83 98 Room Air 11/23/16 07:03 88 16 100 Room Air 11/23/16 07:00 89 16 100 Room Air 11/23/16 00:18 36.9 93 20 152/79 94 Room Air 11/23/16 00:10 Room Air 11/22/16 20:10 94 16 92 Room Air 11/22/16 16:22 94 127/74 92 Room Air 11/22/16 16:00 96 Room Air 11/22/16 15:28 96 22 95 Room Air 11/22/16 15:00 36.9 85 20 99/66 96 Room Air Physical Exam General Appearance: WD/WN, + mild distress Neck: supple, no JVD Respiratory/Chest: + respiratory distress, + accessory muscle use, + rhonchi Cardiovascular: regular rate, rhythm, no murmur Abdomen: normal bowel sounds, non tender, soft Extremities: no pedal edema, no calf tenderness Neurologic/Psychiatric: alert, oriented x 3 Laboratory Results Last 24 Hours Test 11/23/16 06:30 White Blood Count 11.34 K/uL Red Blood Count 3.75 M/uL Hemoglobin 11.1 g/dL Hematocrit 33.5 % Mean Corpuscular Volume 89.3 fL Mean Corpuscular Hemoglobin 29.6 pg Mean Corpuscular Hemoglobin Concent 33.1 g/dl RDW Standard Deviation 54.2 fL RDW Coefficient of Variation 16.6 % Platelet Count 224 K/uL Mean Platelet Volume 10.2 fL Sodium Level 137 mmol/L Potassium Level 3.9 mmol/L Chloride Level 97 mmol/L Carbon Dioxide Level 29 mmol/L Anion Gap 11.0 mmol/L Blood Urea Nitrogen 34 mg/dl Creatinine 1.10 mg/dl Est Creatinine Clear Calc Drug Dose 43.6 ml/min Estimated GFR () 55.3 Estimated GFR (Non- 47.7 BUN/Creatinine Ratio 30.6 Random Glucose 179 mg/dl Calcium Level 8.3 mg/dl Assessment and Plan 81-presented with shortness of breath, has bronchitis and acute on chronic diastolic heart failure i personally reviewed labs and vital signs 11/23 Acute bronchitis, restarted levaquin 11/21 for Duonebs and formoterol, continue solu-medrol, has had dramatic improvement and will change to po steroids 11/23 Acute on Chronic Diastolic CHF seems stable lasix iv bid, change to po 11/23 metoprolol 12.5 mg daily, follow PRP Right lateral Chest wall musculoskeletal pain resolved - kdur pad flexeril/ NO NSAIDS due to GFR Hypoxic Respiratory failure- resolved, not needing supplemental oxygen Abdominal Pain- resolved CT with no pathology Orthostatic hypotension-no clinical issue midodrine Hypothyroidism stable levothyroxine sodium 88 g by mouth daily Hypercholesterolemia- simvastatin 20 mg by mouth at bedtime. Anxiety citalopram to 40 mg by mouth daily. DVT prophylaxis Lovenox 40 mg subQ daily FULL CODE
[2016-11-23] MEDS ORDERED: DIPHENOXYLATE/ATROPINE 2.5/0.025MG TAB PO PRN (16:00)
[2016-11-23] MEDS: ENOXAPARIN 40 MG/0.4 ML SYR SQ SCH (20:10)
[2016-11-23] MEDS: DICLOFENAC SOD 1% GEL 100 GM TUBE EXT SCH (21:11)
[2016-11-23] MEDS: SIMVASTATIN 20 MG TAB PO SCH (21:12)
[2016-11-23] MEDS: METHYLPREDNISOLONE IV 20 MG in SYRINGE 0 ML IV SCH (23:29)
[2016-11-24] VITALS (10 sets, daily range): BP systolic 118–168; BP diastolic 68–84; PULSE 79–102; TEMP 36.6–36.8; O2SAT 93–97
[2016-11-24] MEDS: ACETAMINOPHEN 325 MG TAB PO SCH ×3 (05:47→18:29)
[2016-11-24] MEDS: LEVOTHYROXINE 88 MCG TAB PO SCH (05:48)
[2016-11-24 06:03] LABS: BUN/CREATININE RATIO 27.3 (10-20); CREATININE 1.2 mg/dl (0.60-1.20); POTASSIUM 4.2 mmol/L (3.5-5.1)
[2016-11-24] MEDS: ALBUT/IPRATROP 3MG/0.5MG NEB 3 ML VIAL INH SCH ×5 (07:01→19:04)
[2016-11-24] MEDS: FORMOTEROL FUMA NEBULIZER SOLN 20 MCG/2 ML VIAL INH SCH ×2 (07:01→19:04)
[2016-11-24] MEDS: OXYCODONE HCL IR 5 MG TAB (IMMEDIATE RELEASE) PO PRN (08:00)
[2016-11-24] MEDS: BACLOFEN 10 MG TAB PO PRN (08:01)
[2016-11-24] MEDS: IBUPROFEN 200 MG TAB PO PRN ×2 (08:01→14:09)
[2016-11-24] MEDS: PANTOprazole SOD 40 MG TAB PO SCH ×2 (08:02→20:49)
[2016-11-24] MEDS: CYCLOBENZAPRINE HCL 5 MG TAB PO SCH ×3 (08:02→20:51)
[2016-11-24] MEDS: PrednisoLONE ACET 1% OP SUSP 5 ML BTL OPL SCH ×4 (08:03→20:46)
[2016-11-24] MEDS: TIOTROPIUM BROMIDE 5 PUFF/90 MCG INH INH SCH (08:03)
[2016-11-24] MEDS: KETOROLAC 0.5% OP SOLN 5 ML BTL OPL SCH ×4 (08:03→20:46)
[2016-11-24] MEDS: GUAIFENESIN 600 MG TABCR PO SCH ×2 (08:04→20:47)
[2016-11-24] MEDS: LIDODERM (LIDOCAINE) PATCH 5% TD SCH (08:04)
[2016-11-24] MEDS: CITALOPRAM 40 MG TAB PO SCH (08:04)
[2016-11-24] MEDS: CYANOCOBALAMIN 500 MCG TAB (VIT B-12) PO SCH (08:04)
[2016-11-24] MEDS: NYSTATIN SUSP 500,000 U/5 ML UDC PO SCH ×4 (08:04→20:47)
[2016-11-24] MEDS: METOPROLOL SUCC 25MG EXT REL TAB PO SCH (08:05)
[2016-11-24] MEDS: POTASSIUM CHLORIDE 20 MEQ TABCR PO SCH ×2 (08:05→20:51)
[2016-11-24] MEDS: BENZONATATE 100MG CAP PO SCH ×3 (08:05→20:50)
[2016-11-24] MEDS: FUROSEMIDE 20 MG TAB PO SCH (08:05)
[2016-11-24] MEDS: BOOST VANILLA PO SCH ×6 (08:51→20:46)
[2016-11-24] MEDS: MIDODRINE 2.5 MG TAB PO SCH ×3 (10:32→16:55)
[2016-11-24] MEDS: METHYLPREDNISOLONE IV 20 MG in SYRINGE 0 ML IV SCH (12:45)
[2016-11-24] MEDS: GABAPENTIN 300 MG CAP PO SCH (12:45)
--- NOTE | 2016-11-24 14:13 | Pulmonology Progress Note ---
Pulmonary Progress Note Date of Service Nov 24, 2016. Attending Dr. Sandoval Subjective Feels modestly improved today with regard to non-productive cough. +Dry throat alleviated by cough drops. Describes some right sided chest discomfort provoked with inspiration as well as abdominal bloating. Denies abdominal pain and regular BM, denies dysuria. Appetite in-tact. Reports dyspnea and fatigue post ambulation to the restroom just prior to my arrival. Objective 81-yo female admitted to [facility] 11/11/16 Prior records were reviewed. 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 She is a life-long non-smoker. She had been followed by Dr. 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 She has undergone bronchoscopies in the past. In 2009 RLL was biopsied by Dr. Givens (tissue benign) . FOB 01/2016 notable for lavage of mucoid impaction). Most recent bronchoscopy 06/2016 described multiple mucous plugs near the epiglottis as well as from the lingula and SONJA. Additionally, the procedure visualized a EDAC (in upright position) on the right main bronchus as well as counterclockwise turn/twist from the take-off of the RLL resulting in compression of the right lower and middle lobes. Historically, her BAL cultures have been unremarkable. Following her plication procedure early 08/2016 she did not benefit significant improvement in her overall respiratory function - she has since been unable to tolerate down-titration of her oral prednisone past 20mg/day. She was most recently admitted 10/21/16- with symptoms of dyspnea and concern for pneumonitis. She was treated with Levaquin and discharged on a steroid taper. Unfortunately, she continued to struggle with dyspnea, anxiety, cough, and increasing weight gain/abdominal girth. Symptoms persisted despite an additional course of clarithromycin. This visit patient was directly admitted from the OP pulmonary office for persistent symptoms of productive cough, dyspnea and weight gain. CXR noted persistent yet stable bilateral pleural effusions Rt > Left with bilateral opacities at bases consistent with atelectasis vs infiltrate. ABG 11/11/16 consistent with hyperventilation: 7.51/34/67-21%/. ProBNP/Trop/CK-MB: unremarkable. Pct: - undetected. CRP: elevated. CTA 11/14/16: no evidence of embolism, pulmonary nodule (as above), small bilateral pleural effusion and bilateral atelectasis vs infiltrate, thickening of the bronchial cano of the lower lobes, and suggestive of air trapping. CT Abdomen consistent with fatty infiltration of the liver (per report) but otherwise unremarkable. She was treated wtih IV steroid, xpectorant and bronchodilators. She completed an additional course of azithromycin and is currently dose #2 levofloxacin 750 with improvement. Today: - O2: 93-97% RA - Afebrile - WBC/Hgb/Hct/Plts: 11.34/11.1/33.5/224 - CO2: 30 Physical Exam: Constitutional: Chronically ill appearing elderly female sitting in chair at bedside. No acute distress. Head: + facial symmetry Eyes: Slight pupil asymmetry 0.5mm Rt > Left. EOMi, No conjunctival injection Mouth: No erythema, exudate, or post nasal gtt Neck: Trachea midline. No adenopathy or masses Respiratory: Non-labored yet shallow respirations. Diminished at bases. Scattered rales clearing with cough. No wheeze or rhonchi.No clubbing or cyanosis. Spirometry reaching 500cc after several attempts. Cardiovascular: RRR, I/ systolic murmur. +2 radial pulses. <1s capillary refill. Integumentary: no rashes, or ecchymosis Abdomen: Protuberant, soft. Obese MSK/Extremities: Moving and developed symmetrically. No calf tenderness. Neurologic: A&O, data recall in-tact. Appropriate affect. Assessment & Plan 81-yo female with multiple medical comorbidities presents with persistent symptoms of cough, dyspnea and generalized weakness/poor conditioning. She is clinically improving on current regimen. I do feel given the prior structural changes visualized on June bronchoscopy if her course continues to be protracted will arrange for bronchoscopy (can be done as an outpatient). Radiographically her pleural effusions appear small however will obtain ultrasound for further quantification. Data Medications: Current Inpatient Medications Medications (Trade) Dose Ordered Sig/Natasha Route Start Time Stop Time Status Last Admin Dose Admin Enoxaparin Sodium (Lovenox Inj) 40 mg Q24H SQ 11/11/16 20:00 12/11/16 19:59 11/23/16 20:10 40 MG Al Hydrox/Mg Hydrox/Simethicone (Maalox Max Susp) 15 ml Q4H PRN PO 11/11/16 15:15 12/11/16 15:14 Ondansetron HCl (Zofran Inj) 4 mg Q6H PRN IV 11/11/16 15:15 12/11/16 15:14 Albuterol/ Ipratropium (Duoneb) 3 ml QIDR INH 11/11/16 16:00 12/11/16 15:59 11/24/16 11:59 3 ML Acetaminophen/ Butalbital/ Caffeine (Fioricet Tab) 1 tab Q4 PRN PO 11/11/16 16:30 12/11/16 16:29 Baclofen (Lioresal Tab) 10 mg TID PRN PO 11/11/16 16:30 12/11/16 16:29 11/24/16 08:01 10 MG Citalopram Hydrobromide (celeXA TAB) 40 mg DAILY PO 11/12/16 08:00 12/12/16 07:59 11/24/16 08:04 40 MG Cyanocobalamin (Vitamin B-12 Tab) 1,000 mcg DAILY PO 11/12/16 08:00 12/12/16 07:59 11/24/16 08:04 1,000 MCG Gabapentin (Neurontin Cap) 300 mg DAILY@1200 PO 11/12/16 12:00 12/12/16 11:59 11/24/16 12:45 300 MG Ketorolac Tromethamine (Acular 0.5% Oph Soln) 1 drops QID OPL 11/11/16 17:00 12/11/16 16:59 11/24/16 12:45 1 DROPS Levothyroxine Sodium (Synthroid Tab) 88 mcg DAILYBB PO 11/12/16 06:30 3/27/17 06:29 11/24/16 05:48 88 MCG Prednisolone Acetate (Pred Forte 1% Oph Susp) 1 drops QID OPL 11/11/16 17:00 12/11/16 16:59 11/24/16 12:45 1 DROPS Ropinirole HCl (Requip Tab) 0.5 mg HS PRN PO 11/11/16 16:30 12/11/16 16:29 11/23/16 00:05 0.5 MG Simvastatin (Zocor Tab) 20 mg HS PO 11/11/16 22:00 12/11/16 21:59 11/23/16 21:12 20 MG Pantoprazole Sodium (Protonix Tab) 40 mg BID PO 11/11/16 20:00 12/11/16 19:59 11/24/16 08:02 40 MG Potassium Chloride (Klor-Con Tab) 20 meq BID PO 11/11/16 20:00 12/11/16 19:59 11/24/16 08:05 20 MEQ Tiotropium Riner (Spiriva Handihaler Inhaler) 1 puff DAILY INH 11/12/16 08:00 12/12/16 07:59 Future hold 11/24/16 08:03 1 PUFF Miscellaneous Information (Order Awaiting Action) 1 ea QS N/A 11/12/16 00:00 12/12/16 00:00 Menthol (Nice Jass) 1 jass PRN PRN PO 11/11/16 19:00 12/11/16 18:59 11/11/16 20:02 1 JASS Tramadol HCl (Ultram Tab) 50 mg Q4H PRN PO 11/11/16 19:15 12/11/16 19:14 11/22/16 16:19 50 MG Prednisone/ Prednisone (PredniSONE TAB/ PredniSONE TAB) 27.5 mg QAM PO 11/12/16 08:00 12/12/16 07:59 Future Hold 11/12/16 07:51 27.5 MG Diclofenac Sodium (Voltaren 1% Top Gel) 1 appln HS EXT 11/16/16 22:00 12/16/16 21:59 11/23/16 21:11 1 APPLN Nystatin (Mycostatin Susp) 5 ml QID PO 11/16/16 17:00 11/26/16 16:59 11/24/16 12:45 5 ML Dextromethorphan Polymer Complex (Delsym Susp) 30 mg Q6H PRN PO 11/16/16 22:00 12/16/16 21:59 11/21/16 09:01 30 MG Benzonatate (Tessalon Perles Cap) 100 mg TID PO 11/17/16 08:00 12/17/16 07:59 11/24/16 08:05 100 MG Oxycodone HCl (Roxicodone Immediate Rel Tab) 5 mg Q4H PRN PO 11/16/16 22:00 11/30/16 21:59 11/24/16 08:00 5 MG Enteral Nutritional Formula (Boost) 1 can TID PO 11/17/16 14:00 12/17/16 13:59 11/24/16 08:51 1 CAN Ibuprofen (Advil Tab) 400 mg QID PRN PO 11/17/16 14:30 12/17/16 14:29 11/24/16 08:01 400 MG Cyclobenzaprine HCl (Flexeril Tab) 5 mg TID PO 11/18/16 14:00 12/18/16 13:59 11/24/16 08:02 5 MG Lidocaine (Lidoderm Patch 5%) 1 patch QAM TD 11/19/16 08:00 12/19/16 07:59 11/24/16 08:04 1 PATCH Miscellaneous (Remove Lidoderm Patch) 1 ea DAILY@21 N/A 11/19/16 21:00 12/19/16 20:59 11/23/16 21:11 1 EA Metoprolol Succinate (Toprol Xl Tab) 12.5 mg QAM PO 11/21/16 08:00 12/21/16 07:59 11/24/16 08:05 12.5 MG Midodrine (Proamatine Tab) 2.5 mg TID@,,17 PO 11/20/16 17:00 12/20/16 16:59 11/24/16 12:45 2.5 MG Guaifenesin (Mucinex Contr Rel Tab) 1,200 mg BID PO 11/21/16 20:00 12/21/16 19:59 11/24/16 08:04 1,200 MG Formoterol Fumarate (Perforomist 20MCG/2ML Neb Soln) 20 mcg BIDR INH 11/21/16 20:00 12/21/16 19:59 11/24/16 07:01 20 MCG Acetaminophen 650 mg 650 mg Q6 PO 11/23/16 01:00 12/23/16 00:59 11/24/16 12:49 650 MG Methylprednisolone Sodium Succinate/ Syringe (Solu-Medrol IV/ Syringe) 0.32 ml @ 1.5 mls/min BID@0000,1200 IV 11/24/16 00:00 12/24/16 00:00 11/24/16 12:45 1.5 MLS/MIN Diphenoxylate HCl/ Atropine (Lomotil Tab) 1 tab Q6 PRN PO 11/23/16 16:00 12/23/16 15:59 11/23/16 16:50 1 TAB Furosemide (Lasix Tab) 20 mg QAM PO 11/24/16 08:00 12/24/16 07:59 11/24/16 08:05 20 MG Levofloxacin (Levaquin Tab) 750 mg Q2D@1100 PO 11/25/16 11:00 12/02/16 10:59 I & O: 24-Hour Column 11/24/16 08:00 Intake Total 1221 ml Output Total 1500 ml Balance -279 ml Vital Signs: Date Time Temp Pulse Resp B/P Pulse Ox O2 Delivery O2 Flow Rate FiO2 11/24/16 09:47 36.8 86 20 118/68 97 Room Air 11/24/16 08:00 93 Room Air 11/24/16 07:07 36.7 91 20 168/84 96 Room Air 11/24/16 07:02 93 16 94 Room Air 11/24/16 00:27 36.6 102 20 167/78 93 Room Air 11/24/16 00:00 Room Air 11/23/16 19:12 93 16 94 Room Air 11/23/16 16:27 98 16 95 Room Air 11/23/16 16:00 96 Room Air 11/23/16 14:59 36.8 91 18 135/77 96 Room Air 11/23/16 13:52 93 Laboratory Results: Last 24 Hours Test 11/24/16 05:27 Sodium Level 141 mmol/L Potassium Level 4.2 mmol/L Chloride Level 102 mmol/L Carbon Dioxide Level 30 mmol/L Anion Gap 9.0 mmol/L Blood Urea Nitrogen 33 mg/dl Creatinine 1.20 mg/dl Est Creatinine Clear Calc Drug Dose 39.9 ml/min Estimated GFR () 49.8 Estimated GFR (Non- 43.0 BUN/Creatinine Ratio 27.3 Random Glucose 189 mg/dl Calcium Level 8.0 mg/dl
--- NOTE | 2016-11-24 15:35 | DIAGNOSTIC IMAGING REPORT ---
EFFUSION-CHEST/MEDIASTINUM ULTRASOUND CLINICAL HISTORY: pleural effusion COMPARISON STUDY: Chest CTA 11/14/2016. FINDINGS: Trace right pleural effusion with approximately 46 cc. No left pleural effusion. IMPRESSION: Trace right pleural effusion. This was not marked for thoracentesis. Electronically signed by: Jeff Maldonado M.D. 11/24/2016 3:34 PM Dictated Date/Time: 11/24/2016 3:32 PM
--- NOTE | 2016-11-24 16:38 | Progress Note ---
Subjective Date of Service: Nov 24, 2016. Subjective this pt is doing better less cough but still feels short of breath with exertion Problem List Medical Problems: (1) Cervical strain Status: Acute (2) Fall Status: Acute (3) Head injury Status: Acute (4) Head injury Status: Acute (5) Hip pain Status: Acute (6) Hypoxia Status: Acute (7) Pneumonia Status: Acute (8) Syncope Status: Acute (9) Traumatic compression fracture of third thoracic vertebra Status: Acute Review of Systems Constitutional: + fatigue, + weakness, No chills, No fever Respiratory: + cough, + dyspnea on exertion, No shortness of breath, No sputum Cardiac: + edema, No chest pain Abdomen: No diarrhea, No nausea, No pain, No vomiting Female : No dysuria, No urinary frequency Objective Vital Signs Date Time Temp Pulse Resp B/P Pulse Ox O2 Delivery O2 Flow Rate FiO2 11/24/16 14:57 36.7 90 20 151/69 95 Room Air 11/24/16 13:00 95 11/24/16 09:47 36.8 86 20 118/68 97 Room Air 11/24/16 08:00 93 Room Air 11/24/16 07:07 36.7 91 20 168/84 96 Room Air 11/24/16 07:02 93 16 94 Room Air 11/24/16 00:27 36.6 102 20 167/78 93 Room Air 11/24/16 00:00 Room Air 11/23/16 19:12 93 16 94 Room Air Physical Exam General Appearance: WD/WN, + mild distress Neck: supple, no JVD Respiratory/Chest: + respiratory distress, + decreased breath sounds Cardiovascular: regular rate, rhythm, no murmur Abdomen: normal bowel sounds, non tender, soft Extremities: no pedal edema, no calf tenderness Neurologic/Psychiatric: alert, oriented x 3 Laboratory Results Last 24 Hours Test 11/24/16 05:27 Sodium Level 141 mmol/L Potassium Level 4.2 mmol/L Chloride Level 102 mmol/L Carbon Dioxide Level 30 mmol/L Anion Gap 9.0 mmol/L Blood Urea Nitrogen 33 mg/dl Creatinine 1.20 mg/dl Est Creatinine Clear Calc Drug Dose 39.9 ml/min Estimated GFR () 49.8 Estimated GFR (Non- 43.0 BUN/Creatinine Ratio 27.3 Random Glucose 189 mg/dl Calcium Level 8.0 mg/dl Assessment and Plan 81-presented with shortness of breath, has bronchitis, chronic respiratory failure(copd) and acute on chronic diastolic heart failure i personally reviewed labs and vital signs 11/24, ultrasound report Acute bronchitis, restarted levaquin 11/21, po levaquin 11/24. Duonebs and formoterol, changed to po steroids 11/23, us chest to check for pleural effusion negative. Did have a CTA one week ago without PE, breathless ness maybe multifactoral Acute on Chronic Diastolic CHF stable lasix iv bid, change to po 11/23 metoprolol 12.5 mg daily, follow PRP Right lateral Chest wall musculoskeletal pain resolved - kdur pad flexeril/ NO NSAIDS due to GFR Hypoxic Respiratory failure- resolved, not needing supplemental oxygen Abdominal Pain- resolved CT with no pathology Orthostatic hypotension-no clinical issue midodrine Hypothyroidism stable levothyroxine sodium 88 g by mouth daily Hypercholesterolemia- simvastatin 20 mg by mouth at bedtime. Anxiety citalopram to 40 mg by mouth daily. DVT prophylaxis Lovenox 40 mg subQ daily FULL CODE
[2016-11-24] MEDS: ENOXAPARIN 40 MG/0.4 ML SYR SQ SCH (20:48)
[2016-11-24] MEDS: DICLOFENAC SOD 1% GEL 100 GM TUBE EXT SCH (20:49)
[2016-11-24] MEDS: SIMVASTATIN 20 MG TAB PO SCH (20:49)
[2016-11-25] VITALS (7 sets, daily range): BP systolic 129–160; BP diastolic 78–81; PULSE 80–91; TEMP 36.7–37.3; O2SAT 96–98
[2016-11-25] MEDS: ACETAMINOPHEN 325 MG TAB PO SCH ×5 (01:02→23:40)
[2016-11-25] MEDS: METHYLPREDNISOLONE IV 20 MG in SYRINGE 0 ML IV SCH (01:02)
[2016-11-25] MEDS: LEVOTHYROXINE 88 MCG TAB PO SCH (06:16)
[2016-11-25] MEDS: ALBUT/IPRATROP 3MG/0.5MG NEB 3 ML VIAL INH SCH ×4 (07:06→19:28)
[2016-11-25] MEDS: FORMOTEROL FUMA NEBULIZER SOLN 20 MCG/2 ML VIAL INH SCH ×2 (07:07→19:32)
[2016-11-25] MEDS: PrednisoLONE ACET 1% OP SUSP 5 ML BTL OPL SCH ×4 (07:42→20:34)
[2016-11-25] MEDS: TIOTROPIUM BROMIDE 5 PUFF/90 MCG INH INH SCH (07:42)
[2016-11-25] MEDS: KETOROLAC 0.5% OP SOLN 5 ML BTL OPL SCH ×4 (07:43→20:00)
[2016-11-25] MEDS: BACLOFEN 10 MG TAB PO PRN (07:43)
[2016-11-25] MEDS: BOOST VANILLA PO SCH ×6 (07:43→20:44)
[2016-11-25] MEDS: FUROSEMIDE 20 MG TAB PO SCH (07:44)
[2016-11-25] MEDS: PANTOprazole SOD 40 MG TAB PO SCH ×2 (07:44→20:43)
[2016-11-25] MEDS: ROPINIROLE HCL 0.25 MG TAB PO PRN (07:44)
[2016-11-25] MEDS: CYCLOBENZAPRINE HCL 5 MG TAB PO SCH ×3 (07:45→20:44)
[2016-11-25] MEDS: POTASSIUM CHLORIDE 20 MEQ TABCR PO SCH ×2 (07:45→20:41)
[2016-11-25] MEDS: BENZONATATE 100MG CAP PO SCH ×3 (07:45→20:33)
[2016-11-25] MEDS: METOPROLOL SUCC 25MG EXT REL TAB PO SCH (07:45)
[2016-11-25] MEDS: MIDODRINE 2.5 MG TAB PO SCH ×3 (07:47→17:25)
[2016-11-25] MEDS: CYANOCOBALAMIN 500 MCG TAB (VIT B-12) PO SCH (07:47)
[2016-11-25] MEDS: CITALOPRAM 40 MG TAB PO SCH (07:47)
[2016-11-25] MEDS: GUAIFENESIN 600 MG TABCR PO SCH ×2 (07:47→20:35)
[2016-11-25] MEDS: LIDODERM (LIDOCAINE) PATCH 5% TD SCH (07:48)
[2016-11-25] MEDS: NYSTATIN SUSP 500,000 U/5 ML UDC PO SCH ×4 (07:49→20:42)
[2016-11-25 07:50] LABS: HEMATOCRIT 32.6 % (37-47); MEAN CELL VOLUME 89.6 fL (80-100); MEAN CORPUSCULAR HEMOGLOBIN 29.4 pg (25-34); MEAN CORPUSCULAR HGB CONC 32.8 g/dl (32-36); MEAN PLATELET VOLUME 10.1 fL (7.4-10.4); PLATELET COUNT 184 K/uL (130-400); RED BLOOD COUNT 3.64 M/uL (4.2-5.4); WHITE BLOOD COUNT 9.48 K/uL (4.8-10.8)
[2016-11-25 08:04] LABS: ARTERIAL BLD GAS O2 SATURATION 97.1 % (90-95); ARTERIAL BLOOD GAS BASE EXCESS 4.8 mEq/L (-9-1.8); ARTERIAL BLOOD GAS HCO3 28 mmol/L (19-24); ARTERIAL BLOOD GAS PO2 88 mm/Hg (80-95); ARTERIAL BLOOD GAS pH 7.49 (7.35-7.45)
[2016-11-25 08:06] LABS: ALLEN TEST POS (POS); O2 ADMINISTRATION 3 L
[2016-11-25 08:18] LABS: BUN/CREATININE RATIO 32.7 (10-20); CALCIUM 8.5 mg/dl (8.5-10.1); CREATININE 0.92 mg/dl (0.60-1.20); POTASSIUM 4.4 mmol/L (3.5-5.1)
[2016-11-25 08:24] LABS: BASO % 0.1 %; BASO ABS # 0.01 K/uL (0-0.2); COMPLETE YES; IG% 8.1 %; LYMPH % 11.3 %; LYMPH ABS # 1.07 K/uL (1.2-3.4); MONO % 4.6 %; NEUT % 75.9 %
[2016-11-25] MEDS: LEVOFLOXACIN 750 MG TAB PO SCH (10:50)
[2016-11-25] MEDS: GABAPENTIN 300 MG CAP PO SCH (12:14)
[2016-11-25] MEDS ORDERED: ACETYLCYSTEINE 20% INHAL SOLN ***DISPENSED BY RESP. INH ONE (13:14)
--- NOTE | 2016-11-25 14:22 | PROGRESS NOTE ---
DATE: 11/25/2016 DATE: 11/25/2016. PROBLEM LIST: Includes dyspnea, status post right diaphragm plication, questionable right-sided pleural effusion. SUBJECTIVE: The patient reports that she is feeling a little bit better. She states that she still has a lot of cough which is not typical at her baseline. She also has a lot of mucus that she feels is in her chest and she is not able to expectorate. She states she does have some wheezing as well. She states that she does get out of breath when she walks to the bathroom, which is unusual for her also. She reports a little bit of right-sided discomfort in the area of the incisions from the diaphragmatic plication. At this point, she denies any other concerns or problems. No nausea, no vomiting, no diarrhea. Her appetite is normal. No change in her bowels. No difficulty voiding. No swelling of her extremities. OBJECTIVE: GENERAL: The patient is a 81-year-old female sitting at bedside in no acute distress, no respiratory distress. She is alert and oriented x3. Mood is good. Affect is somewhat flat. VITAL SIGNS: Temp 36.8, pulse 88, respiration 18, blood pressure is 160/81, pulse ox 98% on 2 liters. HEAD, EYES, EARS, NOSE, AND THROAT: Normocephalic, atraumatic. NECK: Short, thick. No mass. No adenopathy. No bruit. CHEST: The patient has diminished breath sounds at the right base. A few coarse rhonchi in the upper airways bilaterally. No wheeze noted. No rales noted. CARDIOVASCULAR: Regular rate and rhythm. No murmurs, gallops or rubs. ABDOMEN: Obese, soft, nontender. No guarding, rigidity or organomegaly. EXTREMITIES: No erythema or edema. LABORATORY DATA: Shows a white count of 9,000, H\T\H 10.7 and 32.6, platelet count of 184,000. ABG shows a pH 7.49, pCO2 of 38, pO2 of 88, bicarb of 28, this is on 3 liters of oxygen. BUN 30, creatinine 0.92. Sodium 141, potassium 4.4, chloride 104, calcium is 8.5. No new imaging data. IMPRESSION: This is a 81-year-old female with quite a significant past history. Main complaint now is dyspnea on exertion which is multifactorial. After reviewing hospital notes I did go back and review the bronchoscopy that Xenia Rodrigues referred to in June 2016, which did describe some abnormalities and a twist of the right lower lobe and right middle lobe as well as some thick brown secretions in these lobes as well. This bronchoscopy was done prior to her diaphragmatic plication but I wonder if there is still some anatomical variations or changes in this right lower lobe, right middle lobe area. At this point while the patient is showing signs of improvement I think it would be prudent to have a repeat bronchoscopy done. I think it would be important for Dr. Khalil to do it as he is the provider who did the bronchoscopy in June of 2016 so he has a point of reference or frame of reference to evaluate if there has been any significant change or not. He will be back and is actually in the hospital next week so I think this could be done early next week, possibly as early as Monday. I therefore think it would be appropriate to have her continue hospitalization until them. In the meantime, I would like to start the patient on some Mucomyst to see if this helps with any of his secretions. I think doing this in a controlled environment is going to be better than trying to do this in an outpatient setting. In regards to the pleural effusion on chest x-ray I think that after reviewing the ultrasound which is showing very minimal fluid that what we are seeing on the chest x-ray is just some changes following her diaphragmatic plication and this is going to be her normal appearance moving forward. There does not appear to be any significant pleural effusion at this time. At this point, I would like for the patient to undergo bronchoscopy early next week, hopefully as soon as Monday in the hopes of reevaluating and reexamining this right lower lobe, right middle lobe. I would like to start the patient on Mucomyst and would recommend to continue to follow through his hospitalization. Currently, she is on 40 mg of prednisone orally which I think is appropriate. She is on antibiotic. There has not been any sputum culture, which I do not think the patient is able to expectorate anything and therefore would be difficult I think if we can get a sample of the mucus it would be helpful also. I will put an order in for a sputum culture. At this point, continue to follow through hospitalization.
--- NOTE | 2016-11-25 14:51 | Progress Note ---
Subjective Date of Service: Nov 25, 2016. Subjective this pt is doing better, but still has episodes of breathlessness, has seen pulmonary med and there maybe plans for bronchoscopy next week Problem List Medical Problems: (1) Cervical strain Status: Acute (2) Fall Status: Acute (3) Head injury Status: Acute (4) Head injury Status: Acute (5) Hip pain Status: Acute (6) Hypoxia Status: Acute (7) Pneumonia Status: Acute (8) Syncope Status: Acute (9) Traumatic compression fracture of third thoracic vertebra Status: Acute Review of Systems Constitutional: + weakness, No chills, No fever Respiratory: + cough, + dyspnea on exertion, + shortness of breath, No sputum Cardiac: No chest pain, No edema Abdomen: No nausea, No pain, No vomiting Female : No dysuria, No hematuria, No urinary frequency Psychiatric: No anhedonism, No depression symptoms Objective Vital Signs Date Time Temp Pulse Resp B/P Pulse Ox O2 Delivery O2 Flow Rate FiO2 11/25/16 11:10 80 16 98 Nasal Cannula 2.0 11/25/16 08:04 36.8 88 18 160/81 98 Nasal Cannula 2.0 11/25/16 08:00 Nasal Cannula 2.0 11/25/16 07:07 80 16 98 Nasal Cannula 2.0 11/25/16 00:30 Nasal Cannula 2.0 11/25/16 00:10 36.7 91 20 156/78 98 2.0 11/24/16 19:28 95 Nasal Cannula 2.0 11/24/16 19:04 79 16 97 Nasal Cannula 2.0 11/24/16 17:03 91 20 96 Room Air 11/24/16 14:57 36.7 90 20 151/69 95 Room Air Physical Exam General Appearance: WD/WN, + mild distress Neck: supple, no JVD Respiratory/Chest: + decreased breath sounds, + accessory muscle use, + rhonchi Cardiovascular: regular rate, rhythm, no murmur Abdomen: normal bowel sounds, soft Extremities: no pedal edema, no calf tenderness Neurologic/Psychiatric: alert, oriented x 3 Laboratory Results Last 24 Hours Test 11/25/16 07:41 White Blood Count 9.48 K/uL Red Blood Count 3.64 M/uL Hemoglobin 10.7 g/dL Hematocrit 32.6 % Mean Corpuscular Volume 89.6 fL Mean Corpuscular Hemoglobin 29.4 pg Mean Corpuscular Hemoglobin Concent 32.8 g/dl Platelet Count 184 K/uL Mean Platelet Volume 10.1 fL Neutrophils (%) (Auto) 75.9 % Lymphocytes (%) (Auto) 11.3 % Monocytes (%) (Auto) 4.6 % Eosinophils (%) (Auto) 0.0 % Basophils (%) (Auto) 0.1 % Neutrophils # (Auto) 7.19 K/uL Lymphocytes # (Auto) 1.07 K/uL Monocytes # (Auto) 0.44 K/uL Eosinophils # (Auto) 0.00 K/uL Basophils # (Auto) 0.01 K/uL RDW Standard Deviation 55.3 fL RDW Coefficient of Variation 17.0 % Immature Granulocyte % (Auto) 8.1 % Immature Granulocyte # (Auto) 0.77 K/uL Nucleated RBC Absolute Count (auto) 0.02 K/uL Nucleated Red Blood Cells % 0.3 % Arterial Blood pH 7.49 Arterial Blood Partial Pressure CO2 38 mmHg Arterial Blood Partial Pressure O2 88 mm/Hg Arterial Blood HCO3 28 mmol/L Arterial Blood Oxygen Saturation 97.1 % Arterial Blood Base Excess 4.8 mEq/L Arterial Blood Gas Delivery 3 L John Test POS Sodium Level 141 mmol/L Potassium Level 4.4 mmol/L Chloride Level 104 mmol/L Carbon Dioxide Level 26 mmol/L Anion Gap 11.0 mmol/L Blood Urea Nitrogen 30 mg/dl Creatinine 0.92 mg/dl Est Creatinine Clear Calc Drug Dose 51.9 ml/min Estimated GFR () 68.6 Estimated GFR (Non- 59.2 BUN/Creatinine Ratio 32.7 Random Glucose 159 mg/dl Calcium Level 8.5 mg/dl Assessment and Plan 81-presented with shortness of breath, has bronchitis, chronic respiratory failure(copd) and acute on chronic diastolic heart failure i spoke to micheline VENEAGS and Dr Sandoval, maybe plans for bronchscopy next week Acute bronchitis, restarted levaquin 11/21, po levaquin 11/24. Duonebs and formoterol, changed to po steroids 11/23, us chest to check for pleural effusion negative. Did have a CTA one week ago without PE, still breahtless, pulmonary med may consider Bronchoscopy next week Acute on Chronic Diastolic CHF stable lasix iv bid, po 11/23 metoprolol 12.5 mg daily, follow PRP seems stable Right lateral Chest wall musculoskeletal pain resolved - kdur pad flexeril/ NO NSAIDS due to GFR Hypoxic Respiratory failure- resolved, not needing supplemental oxygen Abdominal Pain- resolved CT with no pathology Orthostatic hypotension-no clinical issue midodrine Hypothyroidism stable levothyroxine sodium 88 g by mouth daily Hypercholesterolemia- simvastatin 20 mg by mouth at bedtime. Anxiety citalopram to 40 mg by mouth daily. DVT prophylaxis Lovenox 40 mg subQ daily FULL CODE
[2016-11-25] MEDS: ACETYLCYSTEINE 20% INHAL SOLN ***DISPENSED BY RESP. INH SCH (19:32)
[2016-11-25] MEDS: ENOXAPARIN 40 MG/0.4 ML SYR SQ SCH (20:32)
[2016-11-25] MEDS: DICLOFENAC SOD 1% GEL 100 GM TUBE EXT SCH (20:44)
[2016-11-25] MEDS: SIMVASTATIN 20 MG TAB PO SCH (20:46)
[2016-11-26] VITALS (9 sets, daily range): BP systolic 140–164; BP diastolic 77–89; PULSE 77–103; TEMP 36.6–36.9; O2SAT 93–97
[2016-11-26] MEDS ORDERED: ACETAMINOPHEN 325 MG TAB ONE (06:16)
[2016-11-26] MEDS: LEVOTHYROXINE 88 MCG TAB PO SCH (06:20)
[2016-11-26] MEDS: ACETAMINOPHEN 325 MG TAB PO SCH ×4 (06:20→23:54)
[2016-11-26] MEDS: FORMOTEROL FUMA NEBULIZER SOLN 20 MCG/2 ML VIAL INH SCH ×2 (07:16→19:44)
[2016-11-26] MEDS: ALBUT/IPRATROP 3MG/0.5MG NEB 3 ML VIAL INH SCH ×4 (07:16→19:44)
[2016-11-26] MEDS: ACETYLCYSTEINE 20% INHAL SOLN ***DISPENSED BY RESP. INH SCH ×2 (07:16→19:44)
[2016-11-26] MEDS: PrednisoLONE ACET 1% OP SUSP 5 ML BTL OPL SCH ×4 (08:14→20:16)
[2016-11-26] MEDS: NYSTATIN SUSP 500,000 U/5 ML UDC PO SCH ×2 (08:14→12:12)
[2016-11-26] MEDS: LIDODERM (LIDOCAINE) PATCH 5% TD SCH (08:14)
[2016-11-26] MEDS: FUROSEMIDE 20 MG TAB PO SCH (08:15)
[2016-11-26] MEDS: GUAIFENESIN 600 MG TABCR PO SCH ×2 (08:18→20:17)
[2016-11-26] MEDS: POTASSIUM CHLORIDE 20 MEQ TABCR PO SCH ×2 (08:19→20:18)
[2016-11-26] MEDS: METOPROLOL SUCC 25MG EXT REL TAB PO SCH (08:19)
[2016-11-26] MEDS: BENZONATATE 100MG CAP PO SCH ×3 (08:19→20:19)
[2016-11-26] MEDS: MIDODRINE 2.5 MG TAB PO SCH ×3 (08:20→17:40)
[2016-11-26] MEDS: CITALOPRAM 40 MG TAB PO SCH (08:20)
[2016-11-26] MEDS: KETOROLAC 0.5% OP SOLN 5 ML BTL OPL SCH (08:20)
[2016-11-26] MEDS: BOOST VANILLA PO SCH ×6 (08:20→20:15)
[2016-11-26] MEDS: TIOTROPIUM BROMIDE 5 PUFF/90 MCG INH INH SCH (08:21)
[2016-11-26] MEDS: PANTOprazole SOD 40 MG TAB PO SCH ×2 (08:21→20:18)
[2016-11-26] MEDS: CYANOCOBALAMIN 500 MCG TAB (VIT B-12) PO SCH (08:21)
--- NOTE | 2016-11-26 08:21 | Progress Note ---
Subjective Date of Service: Nov 26, 2016. Subjective this pt is slightly worsened today, has more wheezing and is more breathless, has need for oxygen for comfort Problem List Medical Problems: (1) Cervical strain Status: Acute (2) Fall Status: Acute (3) Head injury Status: Acute (4) Head injury Status: Acute (5) Hip pain Status: Acute (6) Hypoxia Status: Acute (7) Pneumonia Status: Acute (8) Syncope Status: Acute (9) Traumatic compression fracture of third thoracic vertebra Status: Acute Review of Systems Constitutional: No chills, No fever Respiratory: + cough, + shortness of breath, + sputum, + wheezing Cardiac: No chest pain, No edema, No orthopnea Abdomen: No diarrhea, No nausea, No pain, No vomiting Psychiatric: No anhedonism, No depression symptoms Objective Vital Signs Date Time Temp Pulse Resp B/P Pulse Ox O2 Delivery O2 Flow Rate FiO2 11/26/16 07:30 36.6 77 18 164/89 96 Nasal Cannula 2.0 11/26/16 07:16 87 16 97 Nasal Cannula 2.0 11/26/16 00:09 36.8 83 16 147/79 97 2.0 11/26/16 00:00 97 Nasal Cannula 2.0 11/25/16 19:32 87 16 97 Nasal Cannula 2.0 11/25/16 16:00 Nasal Cannula 2.0 11/25/16 15:58 37.3 86 20 129/78 96 11/25/16 15:12 84 16 96 Room Air 11/25/16 11:10 80 16 98 Nasal Cannula 2.0 Physical Exam General Appearance: WD/WN, + mild distress Neck: supple, no JVD Respiratory/Chest: chest non-tender, + accessory muscle use, + rhonchi, + wheezing Cardiovascular: regular rate, rhythm, no murmur Abdomen: normal bowel sounds, non tender, soft Neurologic/Psychiatric: alert, oriented x 3 Laboratory Results Last 24 Hours Test 11/26/16 07:25 Assessment and Plan 81-presented with shortness of breath, has bronchitis, chronic respiratory failure(copd) and acute on chronic diastolic heart failure i spoke to Dr Sandoval, plans for bronchscopy next week Acute bronchitis, restarted levaquin 11/21, po levaquin 11/24. Duonebs and formoterol, changed to po steroids worsened with po so returned to IV steroids 11/26, us chest to check for pleural effusion negative. Did have a CTA one week ago without PE, still breathless, pulmonary med may consider Bronchoscopy next week Acute on Chronic Diastolic CHF continues to be stable lasix iv bid, po 11/23 metoprolol 12.5 mg daily, follow PRP seems stable Right lateral Chest wall musculoskeletal pain resolved - kdur pad flexeril/ NO NSAIDS due to GFR Hypoxic Respiratory failure- resolved, not needing supplemental oxygen Abdominal Pain- resolved CT with no pathology Orthostatic hypotension-no clinical issue midodrine Hypothyroidism stable levothyroxine sodium 88 g by mouth daily Hypercholesterolemia- simvastatin 20 mg by mouth at bedtime. Anxiety citalopram to 40 mg by mouth daily. DVT prophylaxis Lovenox 40 mg subQ daily FULL CODE
[2016-11-26] MEDS: CYCLOBENZAPRINE HCL 5 MG TAB PO SCH ×3 (08:22→20:21)
[2016-11-26 08:26] LABS: CALCIUM 8.4 mg/dl (8.5-10.1); CREATININE 1.1 mg/dl (0.60-1.20); POTASSIUM 4.2 mmol/L (3.5-5.1)
[2016-11-26] MEDS: DOCUSATE SODIUM/SENNA 50/8.6MG TAB PO SCH (09:32)
[2016-11-26] MEDS: KETOROLAC 0.5% OP SOLN 3 ML BTL OPL SCH ×3 (12:12→20:16)
[2016-11-26] MEDS: GABAPENTIN 300 MG CAP PO SCH (12:13)
[2016-11-26] MEDS ORDERED: METHYLPREDNISOLONE IV 40 MG in SYRINGE 0 ML IV ONE (12:30)
--- NOTE | 2016-11-26 12:58 | PULMONARY PROGRESS NOTE ---
DATE: 11/26/2016 TIME: 12:40 p.m. SUBJECTIVE: The patient states she still feels short of breath. She is still coughing, but there has been no sputum production. I do not think she feels quite as good as she did a day or two ago. She feels fatigued. Her appetite is good. OBJECTIVE: VITAL SIGNS: Temperature is 36.6. She has not had any fever in the past 24 hours, but yesterday her maximum temperature was 37.3. She remains puffy in the face. Heart rate is 85 per minute. Blood pressure 164/89. Respiratory rate was 16 breaths per minute and not labored. Oxygen saturation 96% on 1 liter. LUNGS: The breath sounds at the right base are diminished compared with the left base. No wheezes or rales were heard. ABDOMEN: Obese. Good bowel sounds were heard. The abdomen appears a bit distended, yet it feels relatively soft. EXTREMITIES: Showed trace edema. IMPRESSION: 1. Asthma with exacerbation. 2. Status post right diaphragm plication. COMMENTS AND RECOMMENDATIONS: Jaun See PA-C, had spoken with the patient yesterday about the possibility of bronchoscopy. She does not feel like she is getting completely better. She has had bronchoscopy before. She thinks it has helped somewhat. She is interested in having bronchoscopy if there would be a chance that might help. Therefore, we will tentatively put her on the schedule for Monday for Dr. Khalil. We will keep her n.p.o. after midnight Monday.
[2016-11-26] MEDS: ENOXAPARIN 40 MG/0.4 ML SYR SQ SCH (20:19)
[2016-11-26] MEDS: SIMVASTATIN 20 MG TAB PO SCH (20:19)
[2016-11-26] MEDS: DICLOFENAC SOD 1% GEL 100 GM TUBE EXT SCH (20:20)
[2016-11-26] MEDS: METHYLPREDNISOLONE IV 40 MG in SYRINGE 0 ML IV SCH (23:49)
[2016-11-27] VITALS (7 sets, daily range): BP systolic 149–184; BP diastolic 81–98; PULSE 85–102; TEMP 36.8; O2SAT 94–98
[2016-11-27] MEDS: ACETAMINOPHEN 325 MG TAB PO SCH ×4 (05:40→23:44)
[2016-11-27] MEDS: LEVOTHYROXINE 88 MCG TAB PO SCH (05:40)
[2016-11-27] MEDS: ALBUT/IPRATROP 3MG/0.5MG NEB 3 ML VIAL INH SCH ×4 (07:20→19:37)
[2016-11-27] MEDS: ACETYLCYSTEINE 20% INHAL SOLN ***DISPENSED BY RESP. INH SCH ×2 (07:20→19:42)
[2016-11-27] MEDS: FORMOTEROL FUMA NEBULIZER SOLN 20 MCG/2 ML VIAL INH SCH ×2 (07:21→19:42)
[2016-11-27] MEDS: TIOTROPIUM BROMIDE 5 PUFF/90 MCG INH INH SCH (08:08)
[2016-11-27] MEDS: FUROSEMIDE 20 MG TAB PO SCH (08:08)
[2016-11-27] MEDS: CITALOPRAM 40 MG TAB PO SCH (08:08)
[2016-11-27] MEDS: CYCLOBENZAPRINE HCL 5 MG TAB PO SCH ×3 (08:08→20:08)
[2016-11-27] MEDS: GUAIFENESIN 600 MG TABCR PO SCH ×2 (08:08→20:07)
[2016-11-27] MEDS: PANTOprazole SOD 40 MG TAB PO SCH ×2 (08:08→20:07)
[2016-11-27] MEDS: MIDODRINE 2.5 MG TAB PO SCH ×3 (08:09→17:38)
[2016-11-27] MEDS: METOPROLOL SUCC 25MG EXT REL TAB PO SCH (08:09)
[2016-11-27] MEDS: CYANOCOBALAMIN 500 MCG TAB (VIT B-12) PO SCH (08:09)
[2016-11-27] MEDS: DOCUSATE SODIUM/SENNA 50/8.6MG TAB PO SCH (08:09)
[2016-11-27] MEDS: POTASSIUM CHLORIDE 20 MEQ TABCR PO SCH ×2 (08:10→20:09)
[2016-11-27] MEDS: LIDODERM (LIDOCAINE) PATCH 5% TD SCH (08:10)
[2016-11-27] MEDS: BENZONATATE 100MG CAP PO SCH ×3 (08:10→20:09)
[2016-11-27] MEDS: PrednisoLONE ACET 1% OP SUSP 5 ML BTL OPL SCH ×4 (08:11→20:05)
[2016-11-27] MEDS: KETOROLAC 0.5% OP SOLN 3 ML BTL OPL SCH ×4 (08:11→20:05)
[2016-11-27] MEDS: BOOST VANILLA PO SCH ×6 (08:11→20:04)
--- NOTE | 2016-11-27 08:35 | PULMONARY PROGRESS NOTE ---
DATE: 11/27/2016 TIME: 08:15 a.m. SUBJECTIVE: The patient did not sleep well. She states this is usual for her. Most nights, she has poor sleep. Her breathing is the same. She states she is still short of breath and feels she cannot always take a deep breath. She is not coughing much. She is not expectorating. OBJECTIVE: GENERAL: The patient appears comfortable. She is still very sleepy as I had to awaken her for this exam. VITAL SIGNS: Temperature is 36.8. She appears a little flushed this morning. There have not been any recent fevers, however. Heart rate was 99 per minute. Blood pressure 170/84. Respiratory rate was 16 breaths per minute. Saturation was 97% on 2 liters. LUNGS: The breath sounds are decreased at the right base, but otherwise were fairly clear. LABORATORY DATA: No lab studies were done today. IMPRESSIONS: 1. Asthma with exacerbation. 2. Status post right diaphragm plication. COMMENTS AND RECOMMENDATIONS: Dr. Khalil is going to do bronchoscopy tomorrow to see if the patient has retained secretions, which might be contributing to her symptoms. We will keep her n.p.o. after midnight tonight.
--- NOTE | 2016-11-27 11:24 | Progress Note ---
Subjective Date of Service: Nov 27, 2016. Subjective Pt evaluation today including: conversation w/ patient, physical exam, chart review, lab review, review of studies, review of inpatient medication list Pt reports slightly worsening shortness of breath Denies cough Sitting upright in chair No chest pain or palpitations Tolerating oxygen Problem List Medical Problems: (1) Cervical strain Status: Acute (2) Fall Status: Acute (3) Head injury Status: Acute (4) Head injury Status: Acute (5) Hip pain Status: Acute (6) Hypoxia Status: Acute (7) Pneumonia Status: Acute (8) Syncope Status: Acute (9) Traumatic compression fracture of third thoracic vertebra Status: Acute Review of Systems Constitutional: No chills, No fever Respiratory: + dyspnea at rest, + shortness of breath, No cough, No sputum, No wheezing Cardiac: + edema, No chest pain, No orthopnea Abdomen: No constipation, No diarrhea, No nausea, No pain, No vomiting Musculoskeletal: No joint pain, No muscle pain Female : No dysuria Endo: No excessive thirst, No fatigue Skin: No itch, No rash Objective Vital Signs Date Time Temp Pulse Resp B/P Pulse Ox O2 Delivery O2 Flow Rate FiO2 11/27/16 08:00 Nasal Cannula 2.0 11/27/16 07:21 99 16 97 Nasal Cannula 2.0 11/27/16 07:11 36.8 90 16 170/84 97 Nasal Cannula 2.0 11/27/16 00:00 97 Nasal Cannula 2.0 11/26/16 22:57 36.7 91 20 148/77 96 Nasal Cannula 2.0 11/26/16 19:44 94 16 97 Nasal Cannula 2.0 11/26/16 16:00 Nasal Cannula 2.0 11/26/16 15:21 36.9 101 20 140/79 96 Nasal Cannula 2.0 11/26/16 14:34 103 16 93 Nasal Cannula 2.0 11/26/16 11:22 85 16 96 Nasal Cannula 1.0 Physical Exam General Appearance: WD/WN, + mild distress Neck: supple, no adenopathy Respiratory/Chest: + decreased breath sounds, + crackles Cardiovascular: no gallop, no JVD Abdomen: non tender, soft Neurologic/Psychiatric: alert, oriented x 3 Assessment and Plan 81-presented with shortness of breath, has bronchitis, chronic respiratory failure(copd) and acute on chronic diastolic heart failure Acute bronchitis, restarted levaquin 11/21 and changed to PO levaquin on 11/24. Cont duonebs and formoterol. Changed to po steroids worsened with po so returned to IV steroids 11/26, US chest to check for pleural effusion negative. Did have a CTA one week ago without PE, still breathless, pulmonary will likely do bronchoscopy monday. Will repeat CXR in the meantime secondary to worsening shortness of breath. Acute on Chronic Diastolic CHF - continues to be stable lasix IV now converted to PO, metoprolol 12.5 mg daily, follow PRP seems stable Right lateral Chest wall musculoskeletal pain resolved - kdur pad flexeril/ NO NSAIDS due to GFR Hypoxic Respiratory failure- O2 therapy PRN Abdominal Pain- resolved CT with no pathology Orthostatic hypotension-no clinical issue, continue midodrine Hypothyroidism - stable levothyroxine sodium 88 g by mouth daily Hypercholesterolemia - simvastatin 20 mg by mouth at bedtime. Anxiety - stable, cont citalopram to 40 mg by mouth daily. DVT prophylaxis Lovenox 40 mg subQ daily FULL CODE
[2016-11-27] MEDS: METHYLPREDNISOLONE IV 40 MG in SYRINGE 0 ML IV SCH ×2 (11:31→23:41)
[2016-11-27] MEDS: LEVOFLOXACIN 750 MG TAB PO SCH (11:31)
[2016-11-27] MEDS: GABAPENTIN 300 MG CAP PO SCH (11:31)
--- NOTE | 2016-11-27 15:15 | DIAGNOSTIC IMAGING REPORT ---
SINGLE VIEW CHEST CLINICAL HISTORY: Dyspnea. FINDINGS: An AP, portable, upright chest radiograph is compared to study dated 11/21/2016. Correlation is made with chest CT dated 11/14/2016. The examination is degraded by portable technique, apical lordotic positioning, large body habitus, and patient rotation. The heart is enlarged. The pulmonary vasculature is noncongested. There are low lung volumes. There are small pleural effusions with bibasilar atelectasis. No pneumothorax is seen. The skeletal structures are osteopenic. Bilateral shoulder arthroplasties are in place. Extensive fusion hardware is noted in the cervical spine and at the thoracolumbar junction. Surgical clips are seen in the upper abdomen. IMPRESSION: 1. Cardiomegaly without radiographic evidence of congestive failure. 2. Layering pleural effusions with bibasilar atelectasis. This is unchanged from 11/21/2016. Electronically signed by: Justo Mejias M.D. 11/27/2016 3:14 PM Dictated Date/Time: 11/27/2016 3:13 PM
[2016-11-27] MEDS: SIMVASTATIN 20 MG TAB PO SCH (20:08)
[2016-11-27] MEDS: ENOXAPARIN 40 MG/0.4 ML SYR SQ SCH (20:10)
[2016-11-27] MEDS: DICLOFENAC SOD 1% GEL 100 GM TUBE EXT SCH (20:10)
[2016-11-28] VITALS (23 sets, daily range): BP systolic 136–184; BP diastolic 68–98; PULSE 83–103; TEMP 36.8–36.9; O2SAT 94–100
[2016-11-28] MEDS ORDERED: SODIUM CHLORIDE 0.65% NA SOLN 45 ML (OCEAN) ONE (03:45)
[2016-11-28] MEDS: ACETAMINOPHEN 325 MG TAB PO SCH ×3 (05:22→18:00)
[2016-11-28] MEDS: LEVOTHYROXINE 88 MCG TAB PO SCH (05:22)
[2016-11-28] MEDS: ACETYLCYSTEINE 20% INHAL SOLN ***DISPENSED BY RESP. INH SCH ×2 (07:24→19:15)
[2016-11-28] MEDS: FORMOTEROL FUMA NEBULIZER SOLN 20 MCG/2 ML VIAL INH SCH ×2 (07:24→19:14)
[2016-11-28] MEDS: ALBUT/IPRATROP 3MG/0.5MG NEB 3 ML VIAL INH SCH ×4 (07:24→19:14)
[2016-11-28] MEDS ORDERED: FENTANYL CITRATE INJ 50 MCG/1 ML 2 ML VIAL IV ONE ×2 (07:49→12:45)
[2016-11-28] MEDS ORDERED: MIDAZOLAM HCL 5 MG/ML 1 ML VIAL IV ONE ×2 (07:49→12:45)
[2016-11-28] MEDS: BOOST VANILLA PO SCH ×6 (08:00→20:00)
[2016-11-28] MEDS: DOCUSATE SODIUM/SENNA 50/8.6MG TAB PO SCH (08:00)
[2016-11-28] MEDS: MIDODRINE 2.5 MG TAB PO SCH ×3 (12:00→18:08)
[2016-11-28] MEDS: PrednisoLONE ACET 1% OP SUSP 5 ML BTL OPL SCH ×3 (12:00→18:11)
[2016-11-28] MEDS: KETOROLAC 0.5% OP SOLN 3 ML BTL OPL SCH ×3 (12:00→18:12)
--- NOTE | 2016-11-28 12:23 | Procedure Note ---
Post-Moderate Sedation Plan General Date of Moderate Sedation Nov 28, 2016. Vital Signs: Vital Signs Past 12 Hours Date Time Temp Pulse Resp B/P Pulse Ox O2 Delivery O2 Flow Rate FiO2 11/28/16 12:20 95 24 168/84 100 Mask 6.0 11/28/16 12:15 103 29 152/86 100 Mask 6.0 11/28/16 12:10 94 24 138/77 100 Mask 6.0 11/28/16 11:20 91 21 154/76 100 Mask 6.0 11/28/16 08:28 142/68 11/28/16 08:00 97 Nasal Cannula 2.0 11/28/16 07:26 88 16 97 Nasal Cannula 2.0 11/28/16 07:01 36.9 86 18 183/97 95 Room Air Review - Discharge Plan Post Moderate Sedation Plan: On clinical assessment, the patient appears to have tolerated the conscious sedation without complications. Patient is recovering as anticipated. Patient will return to her inpatient room
--- NOTE | 2016-11-28 12:28 | Bronchoscopy Procedure Note ---
Bronchoscopy Procedure Note Procedure: Bronchoscopy, bronchial alveolar lavage, conscious sedation Consent: Obtained to the patient placed in the chart Preprocedural diagnosis: Atelectasis Postprocedural diagnosis: Atelectasis Analgesia: 4% gel lidocaine: Via right naris 2% liquid lidocaine: Via bronchoscopy Sedation: Versed IV: 2 mg Fentanyl IV: 25 g Procedure: The [employer] video bronchoscope was used for this procedure and passed out through the right naris. Right naris/posterior naris/oropharynx/. Glottis: Anatomically within normal limits Glottis: Anatomically within normal limits Vocal cords: Anatomically within normal limits with good abduction and abduction Subglottis/trachea/Gayle: Anatomically within normal limits Right bronchial tree: Right mainstem: Approximately 70% EDAC associated on passive inspiration and expiration in the upright position Right upper lobe: Anatomically within normal limits Bronchus intermedius: Anatomically within normal limits Right middle lobe: Anatomically within normal limits Right lower lobe: Anatomically within normal limits Left bronchial tree: Left mainstem: Anatomically within normal limits Left upper lobe/lingula: Anatomically within normal limits Left lower lobe: Anatomically within normal limits BAL: Performed of the right middle lobe, 60 cc aliquot with 30 cc was returned mildly serosanguineous no signs of DAH Complications: None Follow-up: Follow-up inpatient in room 459
[2016-11-28] MEDS ORDERED: NURSING VERBAL MED ORDER ONE (12:30)
[2016-11-28] MEDS: BENZONATATE 100MG CAP PO SCH ×2 (14:00→14:28)
[2016-11-28] MEDS: CYCLOBENZAPRINE HCL 5 MG TAB PO SCH ×2 (14:00→14:30)
[2016-11-28] MEDS: TIOTROPIUM BROMIDE 5 PUFF/90 MCG INH INH SCH (14:13)
[2016-11-28] MEDS: ROPINIROLE HCL 0.25 MG TAB PO PRN (14:28)
[2016-11-28] MEDS: PANTOprazole SOD 40 MG TAB PO SCH (14:29)
[2016-11-28] MEDS: FUROSEMIDE 20 MG TAB PO SCH (14:29)
[2016-11-28] MEDS: POTASSIUM CHLORIDE 20 MEQ TABCR PO SCH (14:30)
[2016-11-28] MEDS: CYANOCOBALAMIN 500 MCG TAB (VIT B-12) PO SCH (14:31)
[2016-11-28] MEDS: CITALOPRAM 40 MG TAB PO SCH (14:31)
[2016-11-28] MEDS: GABAPENTIN 300 MG CAP PO SCH (14:31)
[2016-11-28] MEDS: GUAIFENESIN 600 MG TABCR PO SCH (14:32)
[2016-11-28] MEDS: METHYLPREDNISOLONE IV 40 MG in SYRINGE 0 ML IV SCH (14:34)
[2016-11-28] MEDS: NYSTATIN SUSP 500,000 U/5 ML UDC PO SCH ×2 (14:35→18:07)
[2016-11-28] MEDS: LIDODERM (LIDOCAINE) PATCH 5% TD SCH (14:35)
[2016-11-28] MEDS: METOPROLOL SUCC 25MG EXT REL TAB PO SCH (14:46)
--- NOTE | 2016-11-28 15:54 | Progress Note ---
Subjective Date of Service: Nov 28, 2016. Subjective Pt evaluation today including: conversation w/ patient, physical exam, chart review, lab review, review of studies (bronch results), review of inpatient medication list Pain: right ribs from coughing PO Intake: normal Voiding: incontinence (stress) I saw the patient pre-bronch today. She reports ongoing cough. Sinuses feel congested although she does not have any nasal discharge. Oral mucosa is sore. Still with dyspnea. Doesn't feel all that much better relative to a few days ago. She is unsure about her baseline weight but thinks it is 'between 170 and 180'. Problem List Medical Problems: (1) Cervical strain Status: Acute (2) Fall Status: Acute (3) Head injury Status: Acute (4) Head injury Status: Acute (5) Hip pain Status: Acute (6) Hypoxia Status: Acute (7) Pneumonia Status: Acute (8) Syncope Status: Acute (9) Traumatic compression fracture of third thoracic vertebra Status: Acute Review of Systems Constitutional: No chills, No fever Respiratory: + cough, + dyspnea on exertion, + wheezing Cardiac: + chest pain, + orthopnea, + see HPI Abdomen: No nausea, No pain Objective Vital Signs Date Time Temp Pulse Resp B/P Pulse Ox O2 Delivery O2 Flow Rate FiO2 11/28/16 14:52 36.9 91 24 144/87 97 2.0 11/28/16 13:09 36.8 89 20 154/80 97 11/28/16 12:55 96 20 138/78 95 Nasal Cannula 2.0 11/28/16 12:50 94 20 136/76 95 Nasal Cannula 2.0 11/28/16 12:45 92 20 150/75 94 Nasal Cannula 2.0 11/28/16 12:40 100 22 160/83 95 Nasal Cannula 2.0 11/28/16 12:35 100 22 163/79 95 Nasal Cannula 2.0 11/28/16 12:30 100 22 159/83 98 Nasal Cannula 4.0 11/28/16 12:25 97 24 148/96 98 Nasal Cannula 4.0 11/28/16 12:20 95 24 168/84 100 Mask 6.0 11/28/16 12:15 103 29 152/86 100 Mask 6.0 11/28/16 12:10 94 24 138/77 100 Mask 6.0 11/28/16 11:20 91 21 154/76 100 Mask 6.0 11/28/16 08:28 142/68 11/28/16 08:00 97 Nasal Cannula 2.0 11/28/16 07:26 88 16 97 Nasal Cannula 2.0 11/28/16 07:01 36.9 86 18 183/97 95 Room Air 11/28/16 00:00 97 Nasal Cannula 2.0 11/28/16 00:00 36.8 86 20 184/98 94 Nasal Cannula 2.0 11/27/16 23:38 36.8 86 20 184/98 94 11/27/16 20:47 Nasal Cannula 2.0 11/27/16 19:43 88 16 97 Nasal Cannula 2.0 11/27/16 16:24 36.8 102 20 149/81 98 11/27/16 16:00 Nasal Cannula 2.0 Physical Exam General Appearance: no apparent distress, + obese ENT: + pertinent finding (thrush plaques oral mucosa) Neck: no JVD Respiratory/Chest: no respiratory distress, no accessory muscle use, + rales ( fine, right base), + stridor (occasional ), + wheezing Cardiovascular: regular rate, rhythm, no gallop, no murmur Abdomen: normal bowel sounds, non tender, soft, no organomegaly Extremities: no pedal edema Neurologic/Psychiatric: alert, oriented x 3 Assessment and Plan 81yo female with: 1. acute hypoxic respiratory failure - multifactorial - acute/chronic diastolic CHF, asthma with exacerbation, question of right-sided pneumonia. To undergo bronch today to determine if atypical infection is present, exclude airway constriction/collapse, etc. 2. acute/chronic diastolic CHF - office records reviewed. Her weights have been quite variable for some time. Seems to run low 180s at baseline; weight today is about 200#. Will give an additional dose of IV lasix today, follow response and labs. 3. question/possible right-sided pneumonia - has had numerous courses of IV/PO antibiotics. Day #8 of levaquin today; would stop all antibiotics unless bronch cultures grow specific pathogen. 4. asthma with exacerbation - on IV steroids; will hold on weaning today. 5. thrush - nystatin solution qid. 6. c/o sinus congestion - pending bronch results consider CT sinuses. 7. DVT proph - lovenox once daily. 8. CKD stage 3 - creatinine stable in low 1's. 9. ? citrobacter UTI - patient not terribly symptomatic but this could be contributing to her overall lack of forward progress. Reasonable to d/c levaquin and change to rocephin. PT, OT consultations as tolerated Continued [facility] stay due to: multiple IV medications needed
[2016-11-28] MEDS ORDERED: FUROSEMIDE INJ 20 MG in SYRINGE 0 ML IV ONE (16:00)
[2016-11-28] MEDS: CEFTRIAXONE SOD INJ 1 GM in DEXTROSE 5% ADD-VANTAGE 50ML 50 ML IV SCH (18:29)
[2016-11-28] MEDS: DICLOFENAC SOD 1% GEL 100 GM TUBE EXT SCH (22:00)
[2016-11-29] VITALS (11 sets, daily range): BP systolic 136–149; BP diastolic 63–76; PULSE 92–107; TEMP 36.7–37.1; O2SAT 90–98
[2016-11-29] MEDS: KETOROLAC 0.5% OP SOLN 3 ML BTL OPL SCH ×5 (03:03→20:09)
[2016-11-29] MEDS: PrednisoLONE ACET 1% OP SUSP 5 ML BTL OPL SCH ×5 (03:03→20:09)
[2016-11-29] MEDS: NYSTATIN SUSP 500,000 U/5 ML UDC PO SCH ×5 (03:04→20:13)
[2016-11-29] MEDS: POTASSIUM CHLORIDE 20 MEQ TABCR PO SCH ×3 (03:05→20:11)
[2016-11-29] MEDS: GUAIFENESIN 600 MG TABCR PO SCH ×3 (03:06→20:13)
[2016-11-29] MEDS: CYCLOBENZAPRINE HCL 5 MG TAB PO SCH ×2 (03:06→08:26)
[2016-11-29] MEDS: BENZONATATE 100MG CAP PO SCH ×4 (03:09→20:14)
[2016-11-29] MEDS: ENOXAPARIN 40 MG/0.4 ML SYR SQ SCH ×2 (03:10→20:14)
[2016-11-29] MEDS: PANTOprazole SOD 40 MG TAB PO SCH ×3 (03:12→20:13)
[2016-11-29] MEDS: SIMVASTATIN 20 MG TAB PO SCH ×2 (03:14→20:17)
[2016-11-29] MEDS: METHYLPREDNISOLONE IV 40 MG in SYRINGE 0 ML IV SCH ×2 (03:18→11:54)
[2016-11-29] MEDS: ACETAMINOPHEN 325 MG TAB PO SCH ×5 (03:20→23:35)
[2016-11-29] MEDS: LEVOTHYROXINE 88 MCG TAB PO SCH (06:13)
[2016-11-29] MEDS: ALBUT/IPRATROP 3MG/0.5MG NEB 3 ML VIAL INH SCH ×4 (07:08→18:47)
[2016-11-29] MEDS: ACETYLCYSTEINE 20% INHAL SOLN ***DISPENSED BY RESP. INH SCH ×2 (07:15→18:47)
[2016-11-29] MEDS: FORMOTEROL FUMA NEBULIZER SOLN 20 MCG/2 ML VIAL INH SCH ×2 (07:15→18:47)
[2016-11-29 07:35] LABS: BUN/CREATININE RATIO 32.2 (10-20); CALCIUM 8.2 mg/dl (8.5-10.1); POTASSIUM 4.2 mmol/L (3.5-5.1)
[2016-11-29] MEDS: CITALOPRAM 40 MG TAB PO SCH (08:22)
[2016-11-29] MEDS: CYANOCOBALAMIN 500 MCG TAB (VIT B-12) PO SCH (08:23)
[2016-11-29] MEDS: DOCUSATE SODIUM/SENNA 50/8.6MG TAB PO SCH (08:24)
[2016-11-29] MEDS: METOPROLOL SUCC 25MG EXT REL TAB PO SCH (08:24)
[2016-11-29] MEDS: FUROSEMIDE 20 MG TAB PO SCH (08:24)
[2016-11-29] MEDS: TIOTROPIUM BROMIDE 5 PUFF/90 MCG INH INH SCH (08:25)
[2016-11-29] MEDS: BOOST VANILLA PO SCH ×6 (08:26→20:09)
[2016-11-29] MEDS: MIDODRINE 2.5 MG TAB PO SCH ×3 (08:26→16:24)
[2016-11-29] MEDS: LIDODERM (LIDOCAINE) PATCH 5% TD SCH (08:27)
[2016-11-29] MEDS ORDERED: FUROSEMIDE INJ 20 MG in SYRINGE 0 ML IV ONE (09:00)
[2016-11-29] MEDS ORDERED: TEMAZEPAM 7.5 MG CAP PO PRN (10:30)
[2016-11-29] MEDS ORDERED: LIDODERM (LIDOCAINE) PATCH 5% TD ONE (11:00)
--- NOTE | 2016-11-29 11:20 | DIAGNOSTIC IMAGING REPORT ---
SINUS CT CT DOSE: 661.96 mGy.cm HISTORY: Pain. Sinusitis. eval for sinusitis TECHNIQUE: Multiaxial CT images of the paranasal sinuses were performed and reformatted in the coronal plane without the use of contrast. COMPARISON: 04/25/2014 FINDINGS: All major sinuses are considered clear. The mastoid air cells are clear. The bilateral ostiomeatal units are patent. There are findings of mild hyperplastic changes the nasal turbinates. The orbits are unremarkable. IMPRESSION: The paranasal sinuses and mastoid air cells are clear. Mild hyperplastic changes the nasal turbinates Electronically signed by: Vignesh Kim M.D. 11/29/2016 11:19 AM Dictated Date/Time: 11/29/2016 11:18 AM
[2016-11-29] MEDS: GABAPENTIN 300 MG CAP PO SCH (12:52)
[2016-11-29] MEDS: TRIAMCINOLONE ACET NASAL SPRAY 10.8ML BTL NAE SCH (13:23)
[2016-11-29] MEDS ORDERED: FUROSEMIDE INJ 20 MG in SYRINGE 0 ML IV SCH (16:00)
[2016-11-29] MEDS: CEFTRIAXONE SOD INJ 1 GM in DEXTROSE 5% ADD-VANTAGE 50ML 50 ML IV SCH (16:24)
--- NOTE | 2016-11-29 16:49 | Progress Note ---
Subjective Date of Service: Nov 29, 2016. Subjective Pt evaluation today including: conversation w/ patient, conversation w/ family (daughter, by phone), physical exam, chart review, lab review, review of studies (bronch, CT sinuses), conversation w/ investment consultant (pulmonary), review of inpatient medication list Pain: right flank when she coughs PO Intake: excellent Voiding: incontinence sleeping very poorly awake much of the night Problem List Medical Problems: (1) Cervical strain Status: Acute (2) Fall Status: Acute (3) Head injury Status: Acute (4) Head injury Status: Acute (5) Hip pain Status: Acute (6) Hypoxia Status: Acute (7) Pneumonia Status: Acute (8) Syncope Status: Acute (9) Traumatic compression fracture of third thoracic vertebra Status: Acute Review of Systems Constitutional: + fatigue, No chills, No fever Respiratory: + cough, + dyspnea on exertion, + wheezing Cardiac: + orthopnea, No chest pain Abdomen: + pain, + see HPI, No diarrhea, No nausea, No vomiting Objective Vital Signs Date Time Temp Pulse Resp B/P Pulse Ox O2 Delivery O2 Flow Rate FiO2 11/29/16 15:49 92 18 95 Nasal Cannula 2.0 11/29/16 11:33 93 18 98 Nasal Cannula 2.0 11/29/16 09:39 92 Nasal Cannula 2.0 11/29/16 09:26 107 92 11/29/16 07:15 93 16 95 Nasal Cannula 2.0 11/29/16 07:06 37.1 93 18 149/76 92 Nasal Cannula 2.0 11/29/16 00:31 36.9 97 18 92 Nasal Cannula 11/29/16 00:29 97 Nasal Cannula 2.0 11/28/16 23:55 36.9 85 18 163/82 11/28/16 20:00 97 Nasal Cannula 2.0 11/28/16 19:15 83 16 96 Nasal Cannula Physical Exam General Appearance: no apparent distress, + obese, + pertinent finding (looks tired) ENT: + pertinent finding (thrush improved) Neck: no JVD Respiratory/Chest: no respiratory distress, no accessory muscle use, + decreased breath sounds (right base), + rales (right base), + rhonchi, + wheezing Cardiovascular: regular rate, rhythm, no gallop, no murmur Abdomen: normal bowel sounds, non tender, soft, no organomegaly Extremities: no pedal edema Neurologic/Psychiatric: alert, oriented x 3 Laboratory Results Last 24 Hours Test 11/29/16 06:35 Erythrocyte Sedimentation Rate 14 mm/hr Sodium Level 140 mmol/L Potassium Level 4.2 mmol/L Chloride Level 101 mmol/L Carbon Dioxide Level 30 mmol/L Anion Gap 9.0 mmol/L Blood Urea Nitrogen 32 mg/dl Creatinine 1.00 mg/dl Est Creatinine Clear Calc Drug Dose 47.7 ml/min Estimated GFR () 62.1 Estimated GFR (Non- 53.5 BUN/Creatinine Ratio 32.2 Random Glucose 140 mg/dl Calcium Level 8.2 mg/dl Assessment and Plan 81yo female with: 1. acute hypoxic respiratory failure - multifactorial - acute/chronic diastolic CHF, asthma with exacerbation, question of right-sided pneumonia. s/p bronch 11/28/16 --- spoke with Dr. Khalil who stated not much in the way of secretions/mucous. Cultures negative to date. Has had COPIOUS abx for her pulmonary issues over the last month. Last course was levaquin - d/c yesterday. I am unclear what continues to drive her wheezing/pulmonary issues. CT sinuses CLEAR. GERD? aspiration? other? normal eosinophils argues against eosinophilic lung disease normal sed rate argues against inflammatory lung disease, etc will get speech to see to r/o silent aspiration consider repeat chest CT? could some of the wheezing be from ongoing CHF? will attempt to diurese will stop IV steroids; has had 2+ weeks of such (on and off) convert to prednisone 60mg daily starting in AM and wean slowly 2. acute/chronic diastolic CHF - office records reviewed. Her weights have been quite variable for some time. Seems to run low 180s at baseline; weight today continues to be about 200#. Will give lasix IV again today and follow UOP and BUN / Cr. Strict outputs. 3. question/possible right-sided pneumonia - has had numerous courses of IV/PO antibiotics. All abx for lungs stopped. 4. asthma with exacerbation - on IV steroids; convert to PO prednisone in AM. 5. thrush - nystatin solution qid. 6. c/o sinus congestion - nasocort daily. CT sinuses w/o sinusitis. 7. DVT proph - lovenox once daily. 8. CKD stage 3 - creatinine stable in low 1's. 9. ? citrobacter UTI - day #2 of rocephin. Rx for 5 days. 10. deconditioning - I spoke to her about rehab this AM. STRONGLY recommended such. She was agreeable to referral. Probably SNF level of care. 11. insomnia - trazodone 25mg at HS tonight cautiously. 12. stop flexeril scheduled 13. flank pain, right - 2nd to strained muscles from coughing. Lidoderm prn. CT abd/pelvis negative. 14. GI proph - PPI twice daily. daughter Grisel updated by phone extensively all questions answered Continued [facility] stay due to: ambulation difficulties, multiple IV medications needed Discharge planning: uncertain
--- NOTE | 2016-11-29 18:52 | Pulmonology Progress Note ---
Pulmonary Progress Note Date of Service Nov 29, 2016. Attending Dr. Khalil Subjective Patient still notes dyspnea at rest "difficulty with moving air" but denies: fever, chills, pleurisy, cardiac chest pain Objective 81-yo female admitted to [facility] 11/11/16 with progressive cough and shortness of breath which had progressed over the previous 2 weeks: VS: reviewed and stable on 3L Physical Exam: Constitutional: ill appearing female Neck: no JVD Respiratory: tachypnic with decreased BS at the basis (non acute change from previous exams) Cardiovascular: RRR with distant heart sounds Integumentary: no rashes, or break down Abdomen: Protuberant, soft. Obese Primary function test sign by Dewayne Clayton on 05/02/2016 Spirometry: Within normal limits Lung volumes: Mild elevation in residual volume Diffusion capacity: Corrected is notably 78% Thoracic CTA (10/20/16) compared to 10/17/16 No PE Small rt sided pleural effusion with infiltrates vs. ateltectasis LLL 6mm pulmonary nodule Lingular infiltrate Vascular congestion RLL infiltrate ABG 11/25/16 7.49/38/88/28 (3L) A-a Gradient:70 11/11/16 7.51/34/67/27 (RA) A-a Gradient:34 10/23/16 7.52/27/77/23 (RA) A-a Gradient:33 08/27/16 7.43/46/75/30 (1.5L) A-a Gradient:48 09/22/15 7.42/45/68/28 (RA) A-a Gradient:55 Cardiac Echo (10/21/16) LV: mild LVH, EF=65-70% RV: function WNL, TAPSE >1.5cm Lipomatous hypertrophy of the inter-atrial septum is noted IVC sniff: WNL Radiology CT sinuses (11/29/16) WNL CXR (11/27/16) hilar fullness, bilateral cephalization, costophrenic blunting CTA (11/14/16) compared to 10/20/2016 kaylee pulmonary embolism osmall loculated right-sided pleural effusion oComet-tail sign left lower lobe possible rounded atelectasis obilateral posterior lower lobe atelectasis oLingular scarring LB5 ostable 4 mm right upper lobe nodule Assessment & Plan 81-yo female with multiple medical comorbidities presents with persistent symptoms of cough, dyspnea and generalized weakness/poor conditioning. She is clinically improving on current regimen. I do feel given the prior structural changes visualized on June bronchoscopy if her course continues to be protracted will arrange for bronchoscopy (can be done as an outpatient). Radiographically her pleural effusions appear small however will obtain ultrasound for further quantification. 81y/o female with chronic respiratory inefficacy: 1) Resp: At this time I don't believe the patient is having an acute COPD exacerbation and we should slowly vera down on her steroids. Rehabilitation is going to be a major part of her recovery process. I will order a SNIFF study along with MVV, MIP and MEP to evaluate her muscle function which could be affected from the plication and chronic steroids at this time. We should also repeat a cardiac echo and possible perform a V/Q if no answers present themselves. Data Medications: Current Inpatient Medications Medications (Trade) Dose Ordered Sig/Natasha Route Start Time Stop Time Status Last Admin Dose Admin Enoxaparin Sodium (Lovenox Inj) 40 mg Q24H SQ 11/11/16 20:00 12/11/16 19:59 11/29/16 03:10 40 MG Al Hydrox/Mg Hydrox/Simethicone (Maalox Max Susp) 15 ml Q4H PRN PO 11/11/16 15:15 12/11/16 15:14 Ondansetron HCl (Zofran Inj) 4 mg Q6H PRN IV 11/11/16 15:15 12/11/16 15:14 Albuterol/ Ipratropium (Duoneb) 3 ml QIDR INH 11/11/16 16:00 12/11/16 15:59 11/29/16 15:49 3 ML Acetaminophen/ Butalbital/ Caffeine (Fioricet Tab) 1 tab Q4 PRN PO 11/11/16 16:30 12/11/16 16:29 Baclofen (Lioresal Tab) 10 mg TID PRN PO 11/11/16 16:30 12/11/16 16:29 11/25/16 07:43 10 MG Citalopram Hydrobromide (celeXA TAB) 40 mg DAILY PO 11/12/16 08:00 12/12/16 07:59 11/29/16 08:22 40 MG Cyanocobalamin (Vitamin B-12 Tab) 1,000 mcg DAILY PO 11/12/16 08:00 12/12/16 07:59 11/29/16 08:23 1,000 MCG Gabapentin (Neurontin Cap) 300 mg DAILY@1200 PO 11/12/16 12:00 12/12/16 11:59 11/29/16 12:52 300 MG Levothyroxine Sodium (Synthroid Tab) 88 mcg DAILYBB PO 11/12/16 06:30 12/12/16 06:29 11/29/16 06:13 88 MCG Prednisolone Acetate (Pred Forte 1% Oph Susp) 1 drops QID OPL 11/11/16 17:00 12/11/16 16:59 11/29/16 16:22 1 DROPS Ropinirole HCl (Requip Tab) 0.5 mg HS PRN PO 11/11/16 16:30 12/11/16 16:29 11/28/16 14:28 0.5 MG Simvastatin (Zocor Tab) 20 mg HS PO 11/11/16 22:00 12/11/16 21:59 11/29/16 03:14 20 MG Pantoprazole Sodium (Protonix Tab) 40 mg BID PO 11/11/16 20:00 12/11/16 19:59 11/29/16 08:27 40 MG Potassium Chloride (Klor-Con Tab) 20 meq BID PO 11/11/16 20:00 12/11/16 19:59 11/29/16 08:25 20 MEQ Tiotropium [place] (Spiriva Handihaler Inhaler) 1 puff DAILY INH 11/12/16 08:00 12/12/16 07:59 Future hold 11/29/16 08:25 1 PUFF Miscellaneous Information (Order Awaiting Action) 1 ea QS N/A 11/12/16 00:00 12/12/16 00:00 Menthol (Nice Jass) 1 jass PRN PRN PO 11/11/16 19:00 12/11/16 18:59 11/11/16 20:02 1 JASS Tramadol HCl (Ultram Tab) 50 mg Q4H PRN PO 11/11/16 19:15 12/11/16 19:14 11/22/16 16:19 50 MG Prednisone/ Prednisone (PredniSONE TAB/ PredniSONE TAB) 27.5 mg QAM PO 11/12/16 08:00 12/12/16 07:59 Future hold 11/12/16 07:51 27.5 MG Diclofenac Sodium (Voltaren 1% Top Gel) 1 appln HS EXT 11/16/16 22:00 12/16/16 21:59 11/27/16 20:10 1 APPLN Dextromethorphan Polymer Complex (Delsym Susp) 30 mg Q6H PRN PO 11/16/16 22:00 12/16/16 21:59 11/21/16 09:01 30 MG Benzonatate (Tessalon Perles Cap) 100 mg TID PO 11/17/16 08:00 12/17/16 07:59 11/29/16 12:52 100 MG Oxycodone HCl (Roxicodone Immediate Rel Tab) 5 mg Q4H PRN PO 11/16/16 22:00 11/30/16 21:59 11/24/16 08:00 5 MG Enteral Nutritional Formula (Boost) 1 can TID PO 11/17/16 14:00 12/17/16 13:59 11/29/16 12:54 1 CAN Ibuprofen (Advil Tab) 400 mg QID PRN PO 11/17/16 14:30 12/17/16 14:29 11/24/16 14:09 400 MG Miscellaneous (Remove Lidoderm Patch) 1 ea DAILY@21 N/A 11/19/16 21:00 12/29/16 20:59 11/28/16 21:00 1 EA Metoprolol Succinate (Toprol Xl Tab) 12.5 mg QAM PO 11/21/16 08:00 12/21/16 07:59 11/29/16 08:24 12.5 MG Midodrine (Proamatine Tab) 2.5 mg TID@,,17 PO 11/20/16 17:00 12/20/16 16:59 11/29/16 16:24 2.5 MG Guaifenesin (Mucinex Contr Rel Tab) 1,200 mg BID PO 11/21/16 20:00 12/21/16 19:59 11/29/16 08:23 1,200 MG Formoterol Fumarate (Perforomist 20MCG/2ML Neb Soln) 20 mcg BIDR INH 11/21/16 20:00 12/21/16 19:59 11/29/16 07:15 20 MCG Acetaminophen (Tylenol Tab) 650 mg Q6 PO 11/23/16 01:00 12/23/16 00:59 11/29/16 17:40 650 MG Diphenoxylate HCl/ Atropine (Lomotil Tab) 1 tab Q6 PRN PO 11/23/16 16:00 12/23/16 15:59 11/23/16 16:50 1 TAB Furosemide (Lasix Tab) 20 mg QAM PO 11/24/16 08:00 12/24/16 07:59 11/29/16 08:24 20 MG Acetylcysteine (Mucomyst 20% Inh Soln) 3 ml BIDR INH 11/25/16 20:00 12/25/16 19:59 11/29/16 07:15 3 ML Senna/Docusate Sodium (Senokot S Tab) 1 tab QAM PO 11/26/16 08:30 12/26/16 08:29 11/29/16 08:24 1 TAB Ketorolac Tromethamine (Acular 0.5 Oph Soln) 1 drops QID OPL 11/26/16 12:00 12/11/16 16:59 11/29/16 16:23 1 DROPS Nystatin 5 ml 5 ml QID PO 11/28/16 12:00 12/08/16 11:59 11/29/16 16:23 5 ML Ceftriaxone Sodium/Dextrose (Rocephin Inj/ Dextrose Add-[place] 50ML) 50 ml @ 100 mls/hr Q24H IV 11/28/16 16:00 12/03/16 15:44 11/29/16 16:24 100 MLS/HR Lidocaine (Lidoderm Patch 5%) 2 patch QAM TD 11/30/16 08:00 12/30/16 07:59 Triamcinolone Acetonide (Nasacort Allergy 24hr) 2 sprays DAILY LATASHA 11/29/16 12:30 12/29/16 12:29 11/29/16 13:23 2 SPRAYS Trazodone HCl (Desyrel Tab) 25 mg HS PO 11/29/16 22:00 12/29/16 21:59 I & O: 24-Hour Column 11/29/16 08:00 Intake Total 275 ml Output Total 100 ml Balance 175 ml Vital Signs: Date Time Temp Pulse Resp B/P Pulse Ox O2 Delivery O2 Flow Rate FiO2 11/29/16 16:15 36.7 103 18 136/63 97 Nasal Cannula 2.0 11/29/16 16:00 97 Nasal Cannula 2.0 11/29/16 15:49 92 18 95 Nasal Cannula 2.0 11/29/16 11:33 93 18 98 Nasal Cannula 2.0 11/29/16 09:39 92 Nasal Cannula 2.0 11/29/16 09:26 107 92 11/29/16 07:15 93 16 95 Nasal Cannula 2.0 11/29/16 07:06 37.1 93 18 149/76 92 Nasal Cannula 2.0 11/29/16 00:31 36.9 97 18 92 Nasal Cannula 11/29/16 00:29 97 Nasal Cannula 2.0 11/28/16 23:55 36.9 85 18 163/82 11/28/16 20:00 97 Nasal Cannula 2.0 11/28/16 19:15 83 16 96 Nasal Cannula Laboratory Results: Last 24 Hours Test 11/29/16 06:35 Erythrocyte Sedimentation Rate 14 mm/hr Sodium Level 140 mmol/L Potassium Level 4.2 mmol/L Chloride Level 101 mmol/L Carbon Dioxide Level 30 mmol/L Anion Gap 9.0 mmol/L Blood Urea Nitrogen 32 mg/dl Creatinine 1.00 mg/dl Est Creatinine Clear Calc Drug Dose 47.7 ml/min Estimated GFR () 62.1 Estimated GFR (Non- 53.5 BUN/Creatinine Ratio 32.2 Random Glucose 140 mg/dl Calcium Level 8.2 mg/dl
[2016-11-29] MEDS: DICLOFENAC SOD 1% GEL 100 GM TUBE EXT SCH (20:47)
[2016-11-29] MEDS ORDERED: TRAZODONE HCL 50 MG TAB PO SCH (22:00)
[2016-11-30] VITALS (11 sets, daily range): BP systolic 113–147; BP diastolic 70–82; PULSE 81–104; TEMP 36.3–37; O2SAT 93–99
[2016-11-30] MEDS: LEVOTHYROXINE 88 MCG TAB PO SCH (05:56)
[2016-11-30] MEDS: ACETAMINOPHEN 325 MG TAB PO SCH ×4 (05:57→23:45)
[2016-11-30] MEDS: FORMOTEROL FUMA NEBULIZER SOLN 20 MCG/2 ML VIAL INH SCH ×2 (07:24→20:00)
[2016-11-30] MEDS: ACETYLCYSTEINE 20% INHAL SOLN ***DISPENSED BY RESP. INH SCH ×2 (07:25→20:00)
[2016-11-30 07:54] LABS: BUN/CREATININE RATIO 32.7 (10-20); CREATININE 1.1 mg/dl (0.60-1.20); MAGNESIUM 2.2 mg/dl (1.8-2.4); POTASSIUM 3.5 mmol/L (3.5-5.1)
[2016-11-30] MEDS: ALBUT/IPRATROP 3MG/0.5MG NEB 3 ML VIAL INH SCH ×4 (08:00→19:12)
[2016-11-30] MEDS: BOOST VANILLA PO SCH ×6 (08:00→19:57)
[2016-11-30] MEDS: FUROSEMIDE 20 MG TAB PO SCH (08:00)
[2016-11-30] MEDS ORDERED: POTASSIUM CHLORIDE 20 MEQ TABCR PO STA (08:06)
[2016-11-30] MEDS ORDERED: FUROSEMIDE INJ 20 MG in SYRINGE 0 ML IV ONE (08:30)
[2016-11-30] MEDS: GUAIFENESIN 600 MG TABCR PO SCH ×2 (09:08→19:59)
[2016-11-30] MEDS: PANTOprazole SOD 40 MG TAB PO SCH ×2 (09:09→19:58)
[2016-11-30] MEDS: DOCUSATE SODIUM/SENNA 50/8.6MG TAB PO SCH (09:09)
[2016-11-30] MEDS: MIDODRINE 2.5 MG TAB PO SCH ×3 (09:10→17:19)
[2016-11-30] MEDS: PrednisoLONE ACET 1% OP SUSP 5 ML BTL OPL SCH ×4 (09:10→19:57)
[2016-11-30] MEDS: KETOROLAC 0.5% OP SOLN 3 ML BTL OPL SCH ×4 (09:11→19:57)
[2016-11-30] MEDS: TRIAMCINOLONE ACET NASAL SPRAY 10.8ML BTL NAE SCH (09:11)
[2016-11-30] MEDS: LIDODERM (LIDOCAINE) PATCH 5% TD SCH (09:13)
[2016-11-30] MEDS: CITALOPRAM 40 MG TAB PO SCH (09:14)
[2016-11-30] MEDS: CYANOCOBALAMIN 500 MCG TAB (VIT B-12) PO SCH (09:14)
[2016-11-30] MEDS: METOPROLOL SUCC 25MG EXT REL TAB PO SCH (09:15)
[2016-11-30] MEDS: NYSTATIN SUSP 500,000 U/5 ML UDC PO SCH ×4 (09:15→19:58)
[2016-11-30] MEDS: TIOTROPIUM BROMIDE 5 PUFF/90 MCG INH INH SCH (09:16)
[2016-11-30] MEDS: BENZONATATE 100MG CAP PO SCH ×3 (09:18→20:02)
[2016-11-30] MEDS: POTASSIUM CHLORIDE 20 MEQ TABCR PO SCH ×2 (11:16→19:58)
--- NOTE | 2016-11-30 12:36 | DIAGNOSTIC IMAGING REPORT ---
VIDEO SWALLOW STUDY CLINICAL HISTORY: Aspiration. COMPARISON STUDY: Barium esophagram dated 06/03/2015. Fluoroscopy time: 1.9 minutes. TECHNIQUE: Fluoroscopic guidance was provided to the Department of Speech Pathology in performing a video swallow study. The patient consumed barium-impregnated pudding, cracker with paste, nectar thick liquid, and thin barium while the swallowing mechanism was observed in real-time. No penetration or aspiration was seen with any of the sampled textures. Extensive cervical spinal fusion hardware is noted. IMPRESSION: No penetration or aspiration was seen with any of the sampled textures. See dedicated Speech Pathology report for detailed findings and recommendations. Dictated: 11/30/2016 12:26 PM Transcribed: 11/30/2016 12:36 PM BEN_Chad Electronically signed by: Justo Mejias M.D. 11/30/2016 12:37 PM Dictated Date/Time: 11/30/2016 12:26 PM
[2016-11-30] MEDS: GABAPENTIN 300 MG CAP PO SCH (12:43)
[2016-11-30] MEDS: IBUPROFEN 200 MG TAB PO PRN (14:34)
[2016-11-30] MEDS: BACLOFEN 10 MG TAB PO PRN (14:35)
--- NOTE | 2016-11-30 15:06 | Progress Note ---
Subjective Date of Service: Nov 30, 2016. Subjective Pt evaluation today including: conversation w/ patient, physical exam, chart review, lab review, review of studies (video swallow), conversation w/ construction safety consultant (pulmonary, speech), review of inpatient medication list Pain: none voiced today PO Intake: normal Voiding: incontinence no issues overnight slept slightly better last night than previous days but still waking up frequently still with cough still with dyspnea Problem List Medical Problems: (1) Cervical strain Status: Acute (2) Fall Status: Acute (3) Head injury Status: Acute (4) Head injury Status: Acute (5) Hip pain Status: Acute (6) Hypoxia Status: Acute (7) Pneumonia Status: Acute (8) Syncope Status: Acute (9) Traumatic compression fracture of third thoracic vertebra Status: Acute Review of Systems Constitutional: No fever Respiratory: + cough, + dyspnea on exertion, + wheezing, No sputum Cardiac: + orthopnea, No chest pain, No edema Abdomen: No nausea, No vomiting Objective Vital Signs Date Time Temp Pulse Resp B/P Pulse Ox O2 Delivery O2 Flow Rate FiO2 11/30/16 14:22 36.5 88 28 147/82 99 Nasal Cannula 2.0 92 11/30/16 11:21 87 18 93 Nasal Cannula 2.0 11/30/16 08:00 97 Nasal Cannula 2.0 11/30/16 07:27 36.3 81 16 113/70 94 Nasal Cannula 2.0 11/30/16 07:24 100 18 93 Nasal Cannula 2.0 11/30/16 00:36 36.4 81 124/76 95 Nasal Cannula 2.0 11/29/16 23:35 Nasal Cannula 2.0 11/29/16 18:47 100 18 93 Nasal Cannula 2.0 11/29/16 16:15 36.7 103 18 136/63 97 Nasal Cannula 2.0 11/29/16 16:00 97 Nasal Cannula 2.0 11/29/16 15:49 92 18 95 Nasal Cannula 2.0 Physical Exam General Appearance: no apparent distress, + obese ENT: pharynx normal (thrush resolved) Neck: no JVD Respiratory/Chest: no respiratory distress, no accessory muscle use, + decreased breath sounds (right base), + rales (right base), + wheezing (b/l ) Cardiovascular: regular rate, rhythm, no gallop, no murmur Abdomen: normal bowel sounds, non tender, soft, no organomegaly Extremities: no pedal edema Neurologic/Psychiatric: alert, oriented x 3, + depressed affect Laboratory Results Last 24 Hours Test 11/30/16 06:51 Sodium Level 141 mmol/L Potassium Level 3.5 mmol/L Chloride Level 103 mmol/L Carbon Dioxide Level 29 mmol/L Anion Gap 9.0 mmol/L Blood Urea Nitrogen 36 mg/dl Creatinine 1.10 mg/dl Est Creatinine Clear Calc Drug Dose 44.2 ml/min Estimated GFR () 55.3 Estimated GFR (Non- 47.7 BUN/Creatinine Ratio 32.7 Random Glucose 148 mg/dl Calcium Level 8.0 mg/dl Magnesium Level 2.2 mg/dl Assessment and Plan 81yo female with: 1. acute hypoxic respiratory failure - multifactorial - acute/chronic diastolic CHF, asthma with exacerbation, question of right-sided pneumonia, other factors? s/p bronch 11/28/16 --- bacterial culture with staph - true pathogen? Has had COPIOUS abx for her pulmonary issues over the last month. I am unclear what continues to drive her wheezing/pulmonary issues. CT sinuses normal. Video swallow exam today was NORMAL / no signs of aspiration. cardiac "wheezing" from pulmonary edema? GERD? other? normal eosinophils argues against eosinophilic lung disease normal sed rate argues against inflammatory lung disease, etc weaned steroids today to prednisone 60mg daily diurese as tolerated 2. acute/chronic diastolic CHF - BUN and Cr relatively stable. Weight still above baseline weights. Diurese again with lasix 20mg IV x 1. 3. question/possible right-sided pneumonia - has had numerous courses of IV/PO antibiotics. All abx for lungs stopped. 4. asthma with exacerbation - wean to PO prednisone today. Has been on/off IV steroids for 2+ weeks. 5. thrush - nystatin solution qid. Resolved. 6. c/o sinus congestion - nasocort daily. CT sinuses w/o sinusitis. 7. DVT proph - lovenox once daily. 8. CKD stage 3 - creatinine stable in low 1's. 9. citrobacter UTI - day #3 of rocephin. Rx for 5 days. 10. deconditioning - I spoke to her again about rehab this AM. STRONGLY recommended such. She understands the need and agrees to referrals for this. Probably SNF level of care. 11. insomnia - increase trazodone to 50mg at HS. 12. GI proph - PPI twice daily. Continued [facility] stay due to: ambulation difficulties, multiple IV medications needed, other (ongoing pulmonary issues) Discharge planning: uncertain
[2016-11-30] MEDS: CEFTRIAXONE SOD INJ 1 GM in DEXTROSE 5% ADD-VANTAGE 50ML 50 ML IV SCH (17:05)
--- NOTE | 2016-11-30 18:45 | ECHOCARDIOGRAM REPORT ---
*NOTICE TO RECEIVING DEMOCRAT AGENCY This information is strictly Confidential and protected under [place] law. [place] law prohibits you from making any further disclosure of this information unless further disclosure is expressly permitted by the written consent of the person to whom it pertains or is authorized by law. A general authorization for the release of medical or other information is not sufficient for this purpose. Hospital accepts no responsibility if the information is made available to any other person, INCLUDING THE PATIENT. Interpretation Summary * Name: DONELL SHANE Study Date: 11/30/2016 10:03 AM * Patient Location: .[id number] HR: 91 * : 1935 (M/d/yyyy) Gender: Female Height: 62 in * Age: 81 yrs Ethnicity: [place] Weight: 206 lb * Ordering Physician: Bradley Mann * Referring Physician: Bradford Matthew * Performed By: Paige Caraballo RDCS * * Reason For Study: LTD ECHO IVC, PA PRESSURE * BSA: 1.9 m2 * History: LTD ECHO IVC, PA PRESSURE * This was a limited follow-up echocardiogram to assess the central venous and right ventricular pressures. The study was technically difficult and limited. The estimated right ventricular systolic pressure is at the upper limits of normal. The central venous pressure appeared to be normal. Procedure Details * Left Ventricle The left ventricle is normal in size. Left ventricular systolic function is normal. Ejection Fraction = 65-70%. * Right Ventricle The right ventricle is normal in size and function. * Atria The left atrium is not well visualized. Right atrium not well visualized. * Tricuspid Valve The tricuspid valve is not well visualized. Estimated right ventricular systolic pressure 30 millimeters of mercury. * Great Vessels The inferior vena cava was poorly visualized. It appeared to demonstrate normal respiratory variation in diameter. This would suggest an normal central venous pressure. * * Doppler Measurements and Calculations * TR max anson 254.9 cm/sec * * * * *
[2016-11-30] MEDS: ENOXAPARIN 40 MG/0.4 ML SYR SQ SCH (20:02)
[2016-11-30] MEDS: SIMVASTATIN 20 MG TAB PO SCH (21:21)
[2016-11-30] MEDS: DICLOFENAC SOD 1% GEL 100 GM TUBE EXT SCH (21:21)
[2016-11-30] MEDS ORDERED: TRAZODONE HCL 50 MG TAB PO SCH (22:00)
[2016-12-01] VITALS (9 sets, daily range): BP systolic 144–168; BP diastolic 81–91; PULSE 80–99; TEMP 36.3–37.1; O2SAT 95–100
[2016-12-01] MEDS: ACETAMINOPHEN 325 MG TAB PO SCH ×3 (06:05→17:01)
[2016-12-01] MEDS: LEVOTHYROXINE 88 MCG TAB PO SCH (06:06)
[2016-12-01 07:11] LABS: COMPLETE YES; EOS % 0.2 %; HEMATOCRIT 34.5 % (37-47); IG% 3.2 %; LYMPH % 12.1 %; MEAN CELL VOLUME 92.7 fL (80-100); MEAN CORPUSCULAR HEMOGLOBIN 29.3 pg (25-34); MEAN CORPUSCULAR HGB CONC 31.6 g/dl (32-36); MONO % 3.8 %; NEUT % 80.7 %; PLATELET COUNT 140 K/uL (130-400); RED BLOOD COUNT 3.72 M/uL (4.2-5.4); WHITE BLOOD COUNT 6.61 K/uL (4.8-10.8)
[2016-12-01] MEDS: ALBUT/IPRATROP 3MG/0.5MG NEB 3 ML VIAL INH SCH ×4 (07:15→19:38)
[2016-12-01] MEDS: ACETYLCYSTEINE 20% INHAL SOLN ***DISPENSED BY RESP. INH SCH ×2 (07:15→19:38)
[2016-12-01] MEDS: FORMOTEROL FUMA NEBULIZER SOLN 20 MCG/2 ML VIAL INH SCH ×2 (07:15→19:39)
[2016-12-01 07:48] LABS: BUN/CREATININE RATIO 35.5 (10-20); CALCIUM 7.9 mg/dl (8.5-10.1); CREATININE 0.98 mg/dl (0.60-1.20); POTASSIUM 4.1 mmol/L (3.5-5.1)
[2016-12-01] MEDS: TIOTROPIUM BROMIDE 5 PUFF/90 MCG INH INH SCH (09:10)
[2016-12-01] MEDS: KETOROLAC 0.5% OP SOLN 3 ML BTL OPL SCH ×4 (09:10→20:52)
[2016-12-01] MEDS: TRIAMCINOLONE ACET NASAL SPRAY 10.8ML BTL NAE SCH (09:10)
[2016-12-01] MEDS: PrednisoLONE ACET 1% OP SUSP 5 ML BTL OPL SCH ×4 (09:10→20:52)
[2016-12-01] MEDS: GUAIFENESIN 600 MG TABCR PO SCH ×2 (09:11→20:54)
[2016-12-01] MEDS: BOOST VANILLA PO SCH ×6 (09:11→20:00)
[2016-12-01] MEDS: DOCUSATE SODIUM/SENNA 50/8.6MG TAB PO SCH (09:12)
[2016-12-01] MEDS: POTASSIUM CHLORIDE 20 MEQ TABCR PO SCH ×2 (09:12→20:54)
[2016-12-01] MEDS: BENZONATATE 100MG CAP PO SCH ×3 (09:13→20:53)
[2016-12-01] MEDS: NYSTATIN SUSP 500,000 U/5 ML UDC PO SCH ×4 (09:14→20:53)
[2016-12-01] MEDS: LIDODERM (LIDOCAINE) PATCH 5% TD SCH (09:14)
[2016-12-01] MEDS: CYANOCOBALAMIN 500 MCG TAB (VIT B-12) PO SCH (09:15)
[2016-12-01] MEDS: CITALOPRAM 40 MG TAB PO SCH (09:15)
[2016-12-01] MEDS: PANTOprazole SOD 40 MG TAB PO SCH ×2 (09:15→20:54)
[2016-12-01] MEDS: METOPROLOL SUCC 25MG EXT REL TAB PO SCH (09:15)
[2016-12-01] MEDS: MIDODRINE 2.5 MG TAB PO SCH ×3 (09:16→16:34)
[2016-12-01] MEDS ORDERED: FUROSEMIDE INJ 20 MG in SYRINGE 0 ML IV ONE (10:00)
[2016-12-01] MEDS: LINEZOLID 600 MG TAB PO SCH ×2 (12:43→20:58)
[2016-12-01] MEDS: GABAPENTIN 300 MG CAP PO SCH (12:47)
[2016-12-01] MEDS: CEFTRIAXONE SOD INJ 1 GM in DEXTROSE 5% ADD-VANTAGE 50ML 50 ML IV SCH (16:23)
--- NOTE | 2016-12-01 18:12 | DIAGNOSTIC IMAGING REPORT ---
CHEST AND ABDOMEN 2 VIEWS HISTORY: eval for fecal impaction, ileus, etc. Generalized abdominal pain. COMPARISON: Chest 11/27/2016. Abdomen and pelvis CT 11/14/2016. FINDINGS: There are low lung volumes. Bibasilar densities and a small right pleural effusion remain unchanged. The heart remains mildly enlarged. Mild interstitial thickening which is likely chronic. Bilateral shoulder prostheses and cervical spinal fusion hardware. No pneumothorax. No pneumoperitoneum. No pneumatosis. Thoracolumbar spine posterior fusion is again noted. Surgical clips seen along the right side of the upper lumbar spine. Moderate amount of stool and residual barium seen throughout the colon. Multiple pelvic phleboliths. No dilated loops of small bowel to suggest an obstruction. IMPRESSION: 1. Small right pleural effusion and bibasilar densities remain unchanged. 2. No evidence for bowel obstruction. 3. Moderate stool and residual barium seen within the colon. Electronically signed by: Jeff Maldonado M.D. 12/01/2016 6:10 PM Dictated Date/Time: 12/01/2016 6:08 PM
--- NOTE | 2016-12-01 18:40 | Pulmonology Progress Note ---
Pulmonary Progress Note Date of Service Dec 01, 2016. Attending Dr. Khalil Subjective Continued and progressive dyspnea at rest Objective 81-yo female admitted to [facility] 11/11/16 with progressive shortness of breath and diagnosed with MRSA pneumonia/bronchiectasis status post bronchoscopy now with progressive dyspnea on exertion at rest. Vital signs: Reviewed notably increased oxygen requirement currently on high flow system Physical Exam: Constitutional: Respiratory distress Neck: no JVD Respiratory: Tachypnea, with decreased breath/volume movement but no notable wheezes appreciated, dullness to percussion at the bases Cardiovascular: RRR with distant heart sounds Integumentary: no rashes, or break down Abdomen: Protuberant, soft. Obese Chest x-ray/KUB: Shows possible atelectasis versus continue postoperative changes and decreased lung volumes, and large gastric bubble with diffuse fecal impaction Assessment & Plan 81-year-old female with progressive respiratory insufficiency: #1 respiratory insufficiency: Patient's respiratory insufficiency most likely multifactorial with deconditioning, MRSA pneumonia/bronchiectasis and fecal impaction. At this time we'll initiate patient on BiPAP therapy with nasal pillows, obtain ABG, agree with primary care teams initiation of Zyvox by mouth and suggests aggressive bowel regimen. Data Medications: Current Inpatient Medications Medications (Trade) Dose Ordered Sig/Natasha Route Start Time Stop Time Status Last Admin Dose Admin Enoxaparin Sodium (Lovenox Inj) 40 mg Q24H SQ 11/11/16 20:00 12/11/16 19:59 11/30/16 20:02 40 MG Al Hydrox/Mg Hydrox/Simethicone (Maalox Max Susp) 15 ml Q4H PRN PO 11/11/16 15:15 12/11/16 15:14 Ondansetron HCl (Zofran Inj) 4 mg Q6H PRN IV 11/11/16 15:15 12/11/16 15:14 Albuterol/ Ipratropium (Duoneb) 3 ml QIDR INH 11/11/16 16:00 12/11/16 15:59 12/01/16 16:26 3 ML Acetaminophen/ Butalbital/ Caffeine (Fioricet Tab) 1 tab Q4 PRN PO 11/11/16 16:30 12/11/16 16:29 Baclofen (Lioresal Tab) 10 mg TID PRN PO 11/11/16 16:30 12/11/16 16:29 11/30/16 14:35 10 MG Cyanocobalamin (Vitamin B-12 Tab) 1,000 mcg DAILY PO 11/12/16 08:00 12/12/16 07:59 12/01/16 09:15 1,000 MCG Gabapentin (Neurontin Cap) 300 mg DAILY@1200 PO 11/12/16 12:00 12/12/16 11:59 12/01/16 12:47 300 MG Levothyroxine Sodium (Synthroid Tab) 88 mcg DAILYBB PO 11/12/16 06:30 12/12/16 06:29 12/01/16 06:06 88 MCG Prednisolone Acetate (Pred Forte 1% Oph Susp) 1 drops QID OPL 11/11/16 17:00 12/11/16 16:59 12/01/16 16:32 1 DROPS Ropinirole HCl (Requip Tab) 0.5 mg HS PRN PO 11/11/16 16:30 12/11/16 16:29 11/28/16 14:28 0.5 MG Simvastatin (Zocor Tab) 20 mg HS PO 11/11/16 22:00 12/11/16 21:59 11/30/16 21:21 20 MG Pantoprazole Sodium (Protonix Tab) 40 mg BID PO 11/11/16 20:00 12/11/16 19:59 12/01/16 09:15 40 MG Potassium Chloride (Klor-Con Tab) 20 meq BID PO 11/11/16 20:00 12/11/16 19:59 12/01/16 09:12 20 MEQ Tiotropium [place] (Spiriva Handihaler Inhaler) 1 puff DAILY INH 11/12/16 08:00 12/12/16 07:59 Future hold 12/01/16 09:10 1 PUFF Miscellaneous Information (Order Awaiting Action) 1 ea QS N/A 11/12/16 00:00 12/12/16 00:00 Menthol (Nice Jass) 1 jass PRN PRN PO 11/11/16 19:00 12/11/16 18:59 11/11/16 20:02 1 JASS Diclofenac Sodium (Voltaren 1% Top Gel) 1 appln HS EXT 11/16/16 22:00 12/16/16 21:59 3/15/17 21:21 1 APPLN Benzonatate (Tessalon Perles Cap) 100 mg TID PO 11/17/16 08:00 12/17/16 07:59 12/01/16 12:47 100 MG Enteral Nutritional Formula (Boost) 1 can TID PO 11/17/16 14:00 12/17/16 13:59 12/01/16 12:46 1 CAN Ibuprofen (Advil Tab) 400 mg QID PRN PO 11/17/16 14:30 12/17/16 14:29 11/30/16 14:34 400 MG Miscellaneous (Remove Lidoderm Patch) 1 ea DAILY@ N/A 11/19/16 21:00 12/29/16 20:59 11/30/16 21:20 1 EA Metoprolol Succinate (Toprol Xl Tab) 12.5 mg QAM PO 11/21/16 08:00 12/21/16 07:59 12/01/16 09:15 12.5 MG Midodrine (Proamatine Tab) 2.5 mg TID@,,17 PO 11/20/16 17:00 12/20/16 16:59 12/01/16 16:34 2.5 MG Guaifenesin (Mucinex Contr Rel Tab) 1,200 mg BID PO 11/21/16 20:00 12/21/16 19:59 12/01/16 09:11 1,200 MG Formoterol Fumarate (Perforomist 20MCG/2ML Neb Soln) 20 mcg BIDR INH 11/21/16 20:00 12/21/16 19:59 12/01/16 07:15 20 MCG Acetaminophen (Tylenol Tab) 650 mg Q6 PO 11/23/16 01:00 12/23/16 00:59 12/01/16 17:01 650 MG Diphenoxylate HCl/ Atropine (Lomotil Tab) 1 tab Q6 PRN PO 11/23/16 16:00 12/23/16 15:59 11/23/16 16:50 1 TAB Furosemide (Lasix Tab) 20 mg QAM PO 11/24/16 08:00 12/24/16 07:59 Future Hold 11/29/16 08:24 20 MG Acetylcysteine (Mucomyst 20% Inh Soln) 3 ml BIDR INH 11/25/16 20:00 12/25/16 19:59 12/01/16 07:15 3 ML Senna/Docusate Sodium (Senokot S Tab) 1 tab QAM PO 11/26/16 08:30 12/26/16 08:29 12/01/16 09:12 1 TAB Ketorolac Tromethamine (Acular 0.5 Oph Soln) 1 drops QID OPL 11/26/16 12:00 12/11/16 16:59 12/01/16 16:33 1 DROPS Nystatin 5 ml 5 ml QID PO 11/28/16 12:00 12/08/16 11:59 12/01/16 16:33 5 ML Ceftriaxone Sodium/Dextrose (Rocephin Inj/ Dextrose Add-[place] 50ML) 50 ml @ 100 mls/hr Q24H IV 11/28/16 16:00 12/02/16 17:00 12/01/16 16:23 100 MLS/HR Lidocaine (Lidoderm Patch 5%) 2 patch QAM TD 11/30/16 08:00 12/30/16 07:59 12/01/16 09:14 2 PATCH Triamcinolone Acetonide (Nasacort Allergy 24hr) 2 sprays DAILY LATASHA 11/29/16 12:30 12/29/16 12:29 12/01/16 09:10 2 SPRAYS Prednisone (PredniSONE TAB) 60 mg DAILY PO 11/30/16 08:00 12/30/16 07:59 12/01/16 09:14 60 MG Linezolid (Zyvox Tab) 600 mg BID PO 12/01/16 10:15 12/08/16 10:14 12/01/16 12:43 600 MG I & O: 24-Hour Column 12/01/16 08:00 Intake Total 810 ml Output Total 400 ml Balance 410 ml Vital Signs: Date Time Temp Pulse Resp B/P Pulse Ox O2 Delivery O2 Flow Rate FiO2 12/01/16 16:00 97 Nasal Cannula 2.0 12/01/16 15:30 36.3 99 18 147/81 97 Nasal Cannula 2.0 12/01/16 14:50 97 18 95 Nasal Cannula 1.0 12/01/16 11:14 81 18 96 Nasal Cannula 1.0 12/01/16 08:58 Nasal Cannula 2.0 12/01/16 07:30 36.3 83 18 168/91 97 Nasal Cannula 2.0 12/01/16 07:16 80 18 98 Nasal Cannula 2.0 11/30/16 23:30 Nasal Cannula 2.0 11/30/16 23:05 36.7 104 20 145/79 94 Nasal Cannula 2.0 11/30/16 19:12 102 18 96 Nasal Cannula 2.0 Laboratory Results: Last 24 Hours Test 12/01/16 06:53 12/01/16 18:38 White Blood Count 6.61 K/uL Red Blood Count 3.72 M/uL Hemoglobin 10.9 g/dL Hematocrit 34.5 % Mean Corpuscular Volume 92.7 fL Mean Corpuscular Hemoglobin 29.3 pg Mean Corpuscular Hemoglobin Concent 31.6 g/dl Platelet Count 140 K/uL Mean Platelet Volume 10.0 fL Neutrophils (%) (Auto) 80.7 % Lymphocytes (%) (Auto) 12.1 % Monocytes (%) (Auto) 3.8 % Eosinophils (%) (Auto) 0.2 % Basophils (%) (Auto) 0.0 % Neutrophils # (Auto) 5.34 K/uL Lymphocytes # (Auto) 0.80 K/uL Monocytes # (Auto) 0.25 K/uL Eosinophils # (Auto) 0.01 K/uL Basophils # (Auto) 0.00 K/uL RDW Standard Deviation 60.7 fL RDW Coefficient of Variation 18.0 % Immature Granulocyte % (Auto) 3.2 % Immature Granulocyte # (Auto) 0.21 K/uL Sodium Level 141 mmol/L Potassium Level 4.1 mmol/L Chloride Level 104 mmol/L Carbon Dioxide Level 31 mmol/L Anion Gap 6.0 mmol/L Blood Urea Nitrogen 35 mg/dl Creatinine 0.98 mg/dl Est Creatinine Clear Calc Drug Dose 49.6 ml/min Estimated GFR () 63.6 Estimated GFR (Non- 54.9 BUN/Creatinine Ratio 35.5 Random Glucose 95 mg/dl Calcium Level 7.9 mg/dl
[2016-12-01 19:45] LABS: ARTERIAL BLD GAS O2 SATURATION 97.3 % (90-95); ARTERIAL BLOOD GAS BASE EXCESS 3.8 mEq/L (-9-1.8); ARTERIAL BLOOD GAS HCO3 27 mmol/L (19-24); ARTERIAL BLOOD GAS PO2 93 mm/Hg (80-95); ARTERIAL BLOOD GAS pH 7.49 (7.35-7.45)
[2016-12-01 19:48] LABS: ALLEN TEST POS (POS); O2 ADMINISTRATION 35%
--- NOTE | 2016-12-01 20:18 | Progress Note ---
Progress Note Date of Service Dec 01, 2016. 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 I had previously been told by Dr. Mann that this patient had MRSA pneumonia, and if she were to deterioration would require BiPAP and transferred to telemetry. I asked the nurse to ask the patient if she wanted to be on BiPAP and get back to me. She called me back and said the patient was starting to take out her high flow nasal cannula, and asked me to come up and see the patient. I went in to evaluate the patient, the right nasal cannula was not in her nose, and she reported this was hurting her eye. I placed back in her nose. She reported she did not want to be on high flow nasal cannula anymore. She reported it was was placed on her for a trial period for her breathing, and she was told she did not like it she would be able to back to nasal cannula. I told her that we could do a trial of nasal cannula, but that if she were to worsen she will require high flow oxygen or BiPAP. She adamantly refused BiPAP. I also asked if she would want to be intubated or ventilated if her breathing were to acutely worsen. She said she would not want to be intubated. I also asked her resuscitation status, and she said she would be DO NOT RESUSCITATE. I was also called by Dr. Mann after this, and we discussed that it would be best for the patient to be transferred to telemetry, and after about conversation that we would change her CODE STATUS to DO NOT RESUSCITATE. I also saw the respiratory therapist, and discussed this with him as well. I was unable to find the nurse to tell her this. I then called the clinical coordinator about the transfer. In summary, - Transfer to Telemetry - Switch to nasal cannula - Code status to DNR
[2016-12-01] MEDS: SIMVASTATIN 20 MG TAB PO SCH (20:56)
[2016-12-01] MEDS: DICLOFENAC SOD 1% GEL 100 GM TUBE EXT SCH (20:57)
[2016-12-01] MEDS: ENOXAPARIN 40 MG/0.4 ML SYR SQ SCH (20:57)
--- NOTE | 2016-12-01 21:34 | Progress Note ---
Subjective Date of Service: Dec 01, 2016. Subjective Pt evaluation today including: conversation w/ patient, conversation w/ family (daughter, by phone), physical exam, chart review, lab review, review of studies (cxr, abd x-rays), conversation w/ art sales consultant (pulmonary), review of inpatient medication list Pain: none voiced PO Intake: fair per staff Voiding: incontinence pt states her breathing is worse today more dyspnea she again slept poorly last pm due to her breathing and frequent night-time awakening still with severe cough Problem List Medical Problems: (1) Cervical strain Status: Acute (2) Fall Status: Acute (3) Head injury Status: Acute (4) Head injury Status: Acute (5) Hip pain Status: Acute (6) Hypoxia Status: Acute (7) Pneumonia Status: Acute (8) Syncope Status: Acute (9) Traumatic compression fracture of third thoracic vertebra Status: Acute Review of Systems Constitutional: No fever Respiratory: + cough, + dyspnea on exertion, + shortness of breath, + wheezing , No sputum Cardiac: + orthopnea, No chest pain Abdomen: + problem reported (bloating ) Objective Vital Signs Date Time Temp Pulse Resp B/P Pulse Ox O2 Delivery O2 Flow Rate FiO2 12/01/16 19:07 84 96 12/01/16 16:00 97 Nasal Cannula 2.0 12/01/16 15:30 36.3 99 18 147/81 97 Nasal Cannula 2.0 12/01/16 14:50 97 18 95 Nasal Cannula 1.0 12/01/16 11:14 81 18 96 Nasal Cannula 1.0 12/01/16 08:58 Nasal Cannula 2.0 12/01/16 07:30 36.3 83 18 168/91 97 Nasal Cannula 2.0 12/01/16 07:16 80 18 98 Nasal Cannula 2.0 11/30/16 23:30 Nasal Cannula 2.0 11/30/16 23:05 36.7 104 20 145/79 94 Nasal Cannula 2.0 Physical Exam General Appearance: + moderate distress (tachypnea, mild retractions) ENT: pharynx normal (thrush resolved ) Respiratory/Chest: + respiratory distress, + decreased breath sounds (right base), + accessory muscle use, + wheezing Cardiovascular: regular rate, rhythm, no gallop, + systolic murmur (1-2/6 LSB) Abdomen: normal bowel sounds, non tender, no organomegaly, + distended Extremities: no pedal edema Neurologic/Psychiatric: + depressed affect, + pertinent finding (sleepy but able to carry on full conversation) Laboratory Results Last 24 Hours Test 12/01/16 06:53 12/01/16 18:38 White Blood Count 6.61 K/uL Red Blood Count 3.72 M/uL Hemoglobin 10.9 g/dL Hematocrit 34.5 % Mean Corpuscular Volume 92.7 fL Mean Corpuscular Hemoglobin 29.3 pg Mean Corpuscular Hemoglobin Concent 31.6 g/dl Platelet Count 140 K/uL Mean Platelet Volume 10.0 fL Neutrophils (%) (Auto) 80.7 % Lymphocytes (%) (Auto) 12.1 % Monocytes (%) (Auto) 3.8 % Eosinophils (%) (Auto) 0.2 % Basophils (%) (Auto) 0.0 % Neutrophils # (Auto) 5.34 K/uL Lymphocytes # (Auto) 0.80 K/uL Monocytes # (Auto) 0.25 K/uL Eosinophils # (Auto) 0.01 K/uL Basophils # (Auto) 0.00 K/uL RDW Standard Deviation 60.7 fL RDW Coefficient of Variation 18.0 % Immature Granulocyte % (Auto) 3.2 % Immature Granulocyte # (Auto) 0.21 K/uL Sodium Level 141 mmol/L Potassium Level 4.1 mmol/L Chloride Level 104 mmol/L Carbon Dioxide Level 31 mmol/L Anion Gap 6.0 mmol/L Blood Urea Nitrogen 35 mg/dl Creatinine 0.98 mg/dl Est Creatinine Clear Calc Drug Dose 49.6 ml/min Estimated GFR () 63.6 Estimated GFR (Non- 54.9 BUN/Creatinine Ratio 35.5 Random Glucose 95 mg/dl Calcium Level 7.9 mg/dl Assessment and Plan 81yo female with: 1. acute hypoxic respiratory failure - multifactorial causes - clinically worse today. Repeat cxr with low lung volumes. Bronch culture from 11/28/16 with MRSA. Zyvox started for MRSA pneumonia. This afternoon I changed her to high-flow NC to support her work of breathing. Had discussion with Dr. Khalil from pulmonary re: her care. ABG ordered and BIPAP should be considered if hypercapneic. Daughter updated by phone re: clinical status, results of bronch culture, plan of care, etc. 2. acute/chronic diastolic CHF - suspect we are at or near euvolemia. Limited echo with normal appearing IVC. 1 more dose of IV lasix then stop IV. 3. MRSA pneumonia - it is entirely possible that Ms. Philip's lack of progress was due to ongoing MRSA infection of the lungs. Despite copious abx over the last few weeks none of those courses were adequate coverage for MRSA. Start zyvox 600mg BID. 4. asthma with exacerbation - likely due to MRSA infection. On prednisone 60mg. Leave dose as is today. 5. thrush - nystatin solution qid. Resolved. 6. abdominal distension - x-rays obtained today; moderate constipation. No SBO or ileus. Aggressive bowel regimen. 7. DVT proph - lovenox once daily. 8. CKD stage 3 - creatinine stable in low 1's. 9. citrobacter UTI - day #4 of rocephin. Rx for 5 days then stop. 10. deconditioning - severe - patient agreeable to rehab. 11. insomnia - ongoing despite trazodone use. Will stop such due to lack of efficacy and interaction of trazodone with zyvox. 12. GI proph - PPI twice daily. plan of care discussed with daughter, Dr. Khalil, and night-time MD Continued [facility] stay due to: ambulation difficulties, multiple IV medications needed, other (ongoing pulmonary issues) Discharge planning: uncertain
[2016-12-01] MEDS ORDERED: LORAZEPAM 0.5 MG TAB PO STA (23:41)
[2016-12-02] VITALS (11 sets, daily range): BP systolic 116–151; BP diastolic 75–89; PULSE 73–94; TEMP 36.5–37.2; O2SAT 92–98
[2016-12-02] MEDS: ACETAMINOPHEN 325 MG TAB PO SCH ×2 (00:20→06:17)
[2016-12-02] MEDS: LEVOTHYROXINE 88 MCG TAB PO SCH (06:16)
[2016-12-02] MEDS: ALBUT/IPRATROP 3MG/0.5MG NEB 3 ML VIAL INH SCH ×4 (07:32→19:28)
[2016-12-02] MEDS: FORMOTEROL FUMA NEBULIZER SOLN 20 MCG/2 ML VIAL INH SCH ×2 (07:36→19:28)
[2016-12-02] MEDS: ACETYLCYSTEINE 20% INHAL SOLN ***DISPENSED BY RESP. INH SCH ×2 (07:36→19:28)
[2016-12-02] MEDS: MIDODRINE 2.5 MG TAB PO SCH ×3 (08:00→16:32)
[2016-12-02] MEDS: KETOROLAC 0.5% OP SOLN 3 ML BTL OPL SCH ×4 (09:00→20:55)
[2016-12-02] MEDS: CYANOCOBALAMIN 500 MCG TAB (VIT B-12) PO SCH (09:00)
[2016-12-02] MEDS: POTASSIUM CHLORIDE 20 MEQ TABCR PO SCH ×2 (09:00→20:57)
[2016-12-02] MEDS: TIOTROPIUM BROMIDE 5 PUFF/90 MCG INH INH SCH (09:00)
[2016-12-02] MEDS: PANTOprazole SOD 40 MG TAB PO SCH ×2 (09:00→21:58)
[2016-12-02] MEDS: PrednisoLONE ACET 1% OP SUSP 5 ML BTL OPL SCH ×4 (09:00→20:56)
[2016-12-02] MEDS: GUAIFENESIN 600 MG TABCR PO SCH ×2 (09:00→20:58)
[2016-12-02] MEDS: DOCUSATE SODIUM/SENNA 50/8.6MG TAB PO SCH (09:00)
[2016-12-02] MEDS: BOOST VANILLA PO SCH ×6 (09:00→21:58)
[2016-12-02] MEDS: LIDODERM (LIDOCAINE) PATCH 5% TD SCH (09:00)
[2016-12-02] MEDS: TRIAMCINOLONE ACET NASAL SPRAY 10.8ML BTL NAE SCH (09:00)
[2016-12-02] MEDS: NYSTATIN SUSP 500,000 U/5 ML UDC PO SCH ×4 (09:00→20:56)
[2016-12-02] MEDS: METOPROLOL SUCC 25MG EXT REL TAB PO SCH (09:00)
[2016-12-02] MEDS: LINEZOLID 600 MG TAB PO SCH ×2 (09:00→21:59)
[2016-12-02] MEDS: BENZONATATE 100MG CAP PO SCH ×3 (09:00→20:59)
[2016-12-02 09:48] LABS: BUN/CREATININE RATIO 36.8 (10-20); CALCIUM 8.1 mg/dl (8.5-10.1); CREATININE 0.94 mg/dl (0.60-1.20)
[2016-12-02 09:49] LABS: PHOSPHORUS 2.5 mg/dl (2.5-4.9)
--- NOTE | 2016-12-02 12:13 | PROGRESS NOTE ---
DATE: 12/02/2016 PROBLEM LIST: Includes: 1. Respiratory insufficiency. 2. Increased oxygen demand. 3. MRSA pneumonia. SUBJECTIVE: The patient was transferred to ICU last night due to increased difficulty breathing, worsening respiratory status. She was tried on BiPAP which was unsuccessful. She was then placed on high flow and seemed to tolerate that better. The patient was actually seen today at the same time as Dr. Mann who has been following the patient. Dr. Mann reports the patient looks much improved. Respiratory rate is down. The patient denies any complaints other than feeling like she has difficulty getting her breath with the high flow on. She still is coughing some. She still is a little bit congested. There is no wheezing that she is aware of. There is no chest pain. She states her bowels did move this morning. She states she did have a fairly large amount of stool this morning. No other complaints or problems. She currently is on Zyvox for the MRSA and tolerated that well. OBJECTIVE: GENERAL: The patient is a 81-year-old female, lying in bed, does have high flow on, does not appear in any acute distress. When she talks, she is a little bit breathless, I am not sure if that is from the high flow or if she truly is having difficulty because respiratory rate is not increased. She is interactive and cooperative. VITAL SIGNS: Temp 36.7, pulse 81, respiration 20, blood pressure is 151/86, pulse ox 93% on high-flow oxygen with an O2 flow rate of 40 and FiO2 of 40%. NECK: Short, thick. No mass. No adenopathy. No bruit. HEENT: Normocephalic, atraumatic. Pupils equal, round, reactive to light and accommodation. Extraocular movements are intact. CHEST: The patient has few expiratory wheeze in the upper airways bilaterally, otherwise relatively clear. There is no rale or rhonchi noted. CARDIOVASCULAR: Regular rate and rhythm. No murmurs, gallops or rubs. ABDOMEN: Slightly distended. Bowel sounds are present throughout. EXTREMITIES: No erythema, no edema. ABG done yesterday shows a pH of 7.49, pCO2 of 37, pO2 of 93. No imaging data. 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 Following the surgery, she continued to have difficulty with her breathing. She eventually had bronchoscopy earlier in the week which did show methicillin-resistant Staph aureus. The patient has been placed on Zyvox at this time. In regard to her increased dyspnea and tachypnea, the patient is doing better according to Dr. Mann on high-flow oxygen. The patient when I entered was resting comfortably, did not appear in any respiratory distress. At this time, would recommend that we continue high flow, currently continue Zyvox, see if we can taper down or wean down oxygen as the patient's oxygen demand decreases. Potentially tomorrow we can start to decrease her prednisone and continue aggressive pulmonary toilet. Patient and chart reviewed and agree with plan above MTDD
[2016-12-02] MEDS: GABAPENTIN 300 MG CAP PO SCH (13:20)
[2016-12-02] MEDS: CEFTRIAXONE SOD INJ 1 GM in DEXTROSE 5% ADD-VANTAGE 50ML 50 ML IV SCH (16:31)
--- NOTE | 2016-12-02 20:40 | Progress Note ---
Subjective Date of Service: Dec 02, 2016. Subjective Pt evaluation today including: conversation w/ patient, physical exam, chart review, lab review, conversation w/ wine consultant (pulmonary ), review of inpatient medication list Pain: denies PO Intake: fair Voiding: incontinence tele stable overnight when asked about her breathing she states she feels no better but not any worse tolerating high-flow NC still with cough/wheeze denies orthopnea had "good bowel movement" this morning Problem List Medical Problems: (1) Cervical strain Status: Acute (2) Fall Status: Acute (3) Head injury Status: Acute (4) Head injury Status: Acute (5) Hip pain Status: Acute (6) Hypoxia Status: Acute (7) Pneumonia Status: Acute (8) Syncope Status: Acute (9) Traumatic compression fracture of third thoracic vertebra Status: Acute Review of Systems Constitutional: No chills, No fever Respiratory: + cough, + dyspnea at rest, + wheezing, No sputum Cardiac: No chest pain, No orthopnea Abdomen: No constipation, No nausea, No pain, No vomiting Objective Vital Signs Date Time Temp Pulse Resp B/P Pulse Ox O2 Delivery O2 Flow Rate FiO2 12/02/16 20:02 37.0 86 22 133/89 96 High Flow Oxygen 12/02/16 19:28 88 24 98 Nasal Cannula 40.0 40 12/02/16 16:00 High Flow Oxygen 40.0 40 12/02/16 15:51 36.5 90 22 143/82 97 High Flow Oxygen 12/02/16 15:14 88 18 96 Nasal Cannula 12/02/16 12:00 High Flow Oxygen 40.0 40 12/02/16 11:41 37.2 80 20 116/75 96 High Flow Oxygen 12/02/16 11:29 95 12/02/16 11:15 85 18 97 Nasal Cannula 12/02/16 08:00 High Flow Oxygen 40.0 40 12/02/16 07:50 36.7 81 20 151/86 93 High Flow Oxygen 12/02/16 07:37 94 18 93 Nasal Cannula 12/02/16 07:32 94 18 93 Nasal Cannula 12/02/16 04:22 37.0 79 20 145/81 97 High Flow Oxygen 40.0 42 12/02/16 04:00 High Flow Oxygen 40.0 40 12/02/16 00:00 High Flow Oxygen 40.0 40 12/01/16 23:10 37.1 81 24 144/81 100 High Flow Oxygen 40.0 40 Physical Exam General Appearance: no apparent distress, + pertinent finding (overall looks much better today; no tachypnea, no increased work of breathing ) ENT: pharynx normal (thrush resolved, MM slightly dry) Neck: no JVD Respiratory/Chest: no respiratory distress, no accessory muscle use, + decreased breath sounds (right base), + rales (right base), + wheezing (b/l, but slightly improved from previous ) Cardiovascular: regular rate, rhythm, no gallop, no murmur Abdomen: normal bowel sounds, non tender, soft, no organomegaly, + distended ( mild, maybe slightly better today) Extremities: no pedal edema Neurologic/Psychiatric: alert, oriented x 3, + pertinent finding (doesn't look as tired today) Laboratory Results Last 24 Hours Test 12/02/16 09:00 Sodium Level 141 mmol/L Potassium Level 4.0 mmol/L Chloride Level 104 mmol/L Carbon Dioxide Level 28 mmol/L Anion Gap 9.0 mmol/L Blood Urea Nitrogen 35 mg/dl Creatinine 0.94 mg/dl Est Creatinine Clear Calc Drug Dose 51.1 ml/min Estimated GFR () 66.9 Estimated GFR (Non- 57.7 BUN/Creatinine Ratio 36.8 Random Glucose 128 mg/dl Calcium Level 8.1 mg/dl Phosphorus Level 2.5 mg/dl Assessment and Plan 81yo female with: 1. acute hypoxic respiratory failure - previously multifactorial in nature, but now due to MRSA bronchitis/pneumonia. She looks modestly improved today (or at least more comfortable with high flow NC). Day #2 of zyvox. cont same abx, high flow, and supportive care. 2. acute/chronic diastolic CHF - acute component resolved. Limited echo with normal appearing IVC on 12/02/16. resume PO lasix. 3. MRSA pneumonia - day #2 of zyvox; would Rx 10-14 days. 4. asthma with exacerbation - likely due to MRSA infection. On prednisone 60mg. Leave dose as is today. Maybe wean to 50mg tomorrow. 5. thrush - nystatin solution qid. Resolved. 6. abdominal distension - 2nd to constipation - improving. 7. DVT proph - lovenox once daily. 8. CKD stage 3 - creatinine stable in low 1's. 9. citrobacter UTI - day #5 of rocephin. Stop rocephin today. Clinically resolved. 10. deconditioning - severe - patient agreeable to rehab. 11. insomnia - ongoing despite trazodone use. Will stop such due to lack of efficacy and interaction of trazodone with zyvox. 12. GI proph - PPI twice daily. continue telemetry status Continued [facility] stay due to: ambulation difficulties, multiple IV medications needed, other (ongoing pulmonary issues) Discharge planning: other (rehab, likely SNF level )
[2016-12-02] MEDS: ENOXAPARIN 40 MG/0.4 ML SYR SQ SCH (20:53)
[2016-12-02] MEDS: DICLOFENAC SOD 1% GEL 100 GM TUBE EXT SCH (20:54)
[2016-12-02] MEDS: SIMVASTATIN 20 MG TAB PO SCH (21:10)
[2016-12-02] MEDS ORDERED: BOOST VANILLA ONE ×2 (21:16)
[2016-12-03] VITALS (14 sets, daily range): BP systolic 129–159; BP diastolic 75–87; PULSE 70–86; TEMP 36.4–37.1; O2SAT 96–99
[2016-12-03] MEDS: LORAZEPAM 0.5 MG TAB PO PRN (00:40)
[2016-12-03] MEDS: LEVOTHYROXINE 88 MCG TAB PO SCH (05:47)
[2016-12-03] MEDS: ACETYLCYSTEINE 20% INHAL SOLN ***DISPENSED BY RESP. INH SCH ×2 (07:42→20:03)
[2016-12-03] MEDS: ALBUT/IPRATROP 3MG/0.5MG NEB 3 ML VIAL INH SCH ×5 (07:42→20:03)
[2016-12-03] MEDS: FORMOTEROL FUMA NEBULIZER SOLN 20 MCG/2 ML VIAL INH SCH ×2 (07:42→20:03)
[2016-12-03] MEDS: MIDODRINE 2.5 MG TAB PO SCH ×3 (08:29→16:53)
[2016-12-03] MEDS: TIOTROPIUM BROMIDE 5 PUFF/90 MCG INH INH SCH (08:30)
[2016-12-03] MEDS: POTASSIUM CHLORIDE 20 MEQ TABCR PO SCH ×2 (08:30→20:36)
[2016-12-03] MEDS: KETOROLAC 0.5% OP SOLN 3 ML BTL OPL SCH ×4 (08:30→20:34)
[2016-12-03] MEDS: PrednisoLONE ACET 1% OP SUSP 5 ML BTL OPL SCH ×4 (08:30→20:34)
[2016-12-03] MEDS: TRIAMCINOLONE ACET NASAL SPRAY 10.8ML BTL NAE SCH (08:30)
[2016-12-03] MEDS: GUAIFENESIN 600 MG TABCR PO SCH ×2 (08:31→20:37)
[2016-12-03] MEDS: NYSTATIN SUSP 500,000 U/5 ML UDC PO SCH ×4 (08:31→20:36)
[2016-12-03] MEDS: FUROSEMIDE 20 MG TAB PO SCH (08:31)
[2016-12-03] MEDS: PANTOprazole SOD 40 MG TAB PO SCH ×2 (08:31→20:38)
[2016-12-03] MEDS: METOPROLOL SUCC 25MG EXT REL TAB PO SCH (08:32)
[2016-12-03] MEDS: LIDODERM (LIDOCAINE) PATCH 5% TD SCH (08:32)
[2016-12-03] MEDS: CYANOCOBALAMIN 500 MCG TAB (VIT B-12) PO SCH (08:32)
[2016-12-03] MEDS: LINEZOLID 600 MG TAB PO SCH ×2 (08:32→20:36)
[2016-12-03] MEDS: DOCUSATE SODIUM/SENNA 50/8.6MG TAB PO SCH (08:32)
[2016-12-03] MEDS: BENZONATATE 100MG CAP PO SCH ×3 (08:32→20:40)
[2016-12-03] MEDS: BOOST VANILLA PO SCH ×6 (10:00→20:43)
[2016-12-03] MEDS: IBUPROFEN 200 MG TAB PO PRN (11:12)
[2016-12-03] MEDS: GABAPENTIN 300 MG CAP PO SCH (12:56)
[2016-12-03] MEDS: BUTALBITAL/ACETAMIN/CAFFEINE TAB PO PRN (12:58)
--- NOTE | 2016-12-03 14:09 | Pulmonology Progress Note ---
Pulmonary Progress Note Date of Service Dec 03, 2016. Attending Dr. Khalil Subjective Patient and family at the bedside note mild progression of last 24 hours of her respiratory status. Objective 81-yo female admitted to [facility] 11/11/16 with progressive shortness of breath and diagnosed with MRSA pneumonia/bronchiectasis status post bronchoscopy now with mild improvement in her respiratory status with last 24 hours. Vital signs: Reviewed notably increased oxygen requirement currently on high flow system 40%/10 L/m Physical Exam: Constitutional: Tachypnea Neck: no JVD Respiratory: Tachypnea, with decreased breath/volume movement but no notable wheezes appreciated, dullness to percussion at the bases Cardiovascular: RRR with distant heart sounds Integumentary: no rashes, or break down Abdomen: Protuberant, soft. Obese Assessment & Plan 81-year-old female with progressive respiratory insufficiency: #1 Respiratory Insufficiency: Respiratory insufficiency most likely secondary to MRSA pneumonia/bronchiectasis, fecal impaction and deconditioning. Agree with Dr. Mann with continuation of Zyvox. This time suggest we perform aggressive incentive spirometry. Initiate and perform during every commercial. Data Medications: Current Inpatient Medications Medications (Trade) Dose Ordered Sig/Natasha Route Start Time Stop Time Status Last Admin Dose Admin Enoxaparin Sodium (Lovenox Inj) 40 mg Q24H SQ 11/11/16 20:00 12/11/16 19:59 12/02/16 20:53 40 MG Al Hydrox/Mg Hydrox/Simethicone (Maalox Max Susp) 15 ml Q4H PRN PO 11/11/16 15:15 12/11/16 15:14 Ondansetron HCl (Zofran Inj) 4 mg Q6H PRN IV 11/11/16 15:15 12/11/16 15:14 Albuterol/ Ipratropium (Duoneb) 3 ml QIDR INH 11/11/16 16:00 12/11/16 15:59 12/03/16 11:26 3 ML Acetaminophen/ Butalbital/ Caffeine (Fioricet Tab) 1 tab Q4 PRN PO 11/11/16 16:30 12/11/16 16:29 12/03/16 12:58 1 TAB Baclofen (Lioresal Tab) 10 mg TID PRN PO 11/11/16 16:30 12/11/16 16:29 11/30/16 14:35 10 MG Cyanocobalamin (Vitamin B-12 Tab) 1,000 mcg DAILY PO 11/12/16 08:00 12/12/16 07:59 12/03/16 08:32 1,000 MCG Gabapentin (Neurontin Cap) 300 mg DAILY@1200 PO 11/12/16 12:00 12/12/16 11:59 12/03/16 12:56 300 MG Levothyroxine Sodium (Synthroid Tab) 88 mcg DAILYBB PO 11/12/16 06:30 12/12/16 06:29 12/03/16 05:47 88 MCG Prednisolone Acetate (Pred Forte 1% Oph Susp) 1 drops QID OPL 11/11/16 17:00 12/11/16 16:59 12/03/16 12:57 1 DROPS Ropinirole HCl (Requip Tab) 0.5 mg HS PRN PO 11/11/16 16:30 12/11/16 16:29 11/28/16 14:28 0.5 MG Simvastatin (Zocor Tab) 20 mg HS PO 11/11/16 22:00 12/11/16 21:59 12/02/16 21:10 20 MG Pantoprazole Sodium (Protonix Tab) 40 mg BID PO 11/11/16 20:00 12/11/16 19:59 12/03/16 08:31 40 MG Potassium Chloride (Klor-Con Tab) 20 meq BID PO 11/11/16 20:00 12/11/16 19:59 12/03/16 08:30 20 MEQ Tiotropium Crystal (Spiriva Handihaler Inhaler) 1 puff DAILY INH 11/12/16 08:00 12/12/16 07:59 Future hold 12/03/16 08:30 1 PUFF Miscellaneous Information (Order Awaiting Action) 1 ea QS N/A 11/12/16 00:00 12/12/16 00:00 Menthol (Nice Jass) 1 jass PRN PRN PO 11/11/16 19:00 12/11/16 18:59 11/11/16 20:02 1 JASS Diclofenac Sodium (Voltaren 1% Top Gel) 1 appln HS EXT 11/16/16 22:00 12/16/16 21:59 12/02/16 20:54 1 APPLN Benzonatate (Tessalon Perles Cap) 100 mg TID PO 11/17/16 08:00 12/17/16 07:59 12/03/16 08:32 100 MG Enteral Nutritional Formula (Boost) 1 can TID PO 11/17/16 14:00 12/17/16 13:59 12/03/16 10:00 1 CAN Ibuprofen (Advil Tab) 400 mg QID PRN PO 11/17/16 14:30 12/17/16 14:29 12/03/16 11:12 400 MG Miscellaneous (Remove Lidoderm Patch) 1 ea DAILY@21 N/A 11/19/16 21:00 12/29/16 20:59 12/02/16 20:55 1 EA Metoprolol Succinate (Toprol Xl Tab) 12.5 mg QAM PO 11/21/16 08:00 12/21/16 07:59 12/03/16 08:32 12.5 MG Midodrine (Proamatine Tab) 2.5 mg TID@ PO 11/20/16 17:00 12/20/16 16:59 12/03/16 12:56 2.5 MG Guaifenesin (Mucinex Contr Rel Tab) 1,200 mg BID PO 11/21/16 20:00 12/21/16 19:59 12/03/16 08:31 1,200 MG Formoterol Fumarate (Perforomist 20MCG/2ML Neb Soln) 20 mcg BIDR INH 11/21/16 20:00 12/21/16 19:59 12/03/16 07:42 20 MCG Diphenoxylate HCl/ Atropine (Lomotil Tab) 1 tab Q6 PRN PO 11/23/16 16:00 12/23/16 15:59 11/23/16 16:50 1 TAB Furosemide (Lasix Tab) 20 mg QAM PO 11/24/16 08:00 12/24/16 07:59 Future hold 12/03/16 08:31 20 MG Acetylcysteine (Mucomyst 20% Inh Soln) 3 ml BIDR INH 11/25/16 20:00 12/25/16 19:59 12/03/16 07:42 3 ML Senna/Docusate Sodium (Senokot S Tab) 1 tab QAM PO 11/26/16 08:30 12/26/16 08:29 12/03/16 08:32 1 TAB Ketorolac Tromethamine (Acular 0.5 Oph Soln) 1 drops QID OPL 11/26/16 12:00 12/11/16 16:59 12/03/16 12:57 1 DROPS Nystatin (Mycostatin Susp) 5 ml QID PO 11/28/16 12:00 12/08/16 11:59 12/03/16 12:57 5 ML Lidocaine (Lidoderm Patch 5%) 2 patch QAM TD 11/30/16 08:00 12/30/16 07:59 12/03/16 08:32 2 PATCH Triamcinolone Acetonide (Nasacort Allergy 24hr) 2 sprays DAILY LATASHA 11/29/16 12:30 12/29/16 12:29 12/03/16 08:30 2 SPRAYS Prednisone (PredniSONE TAB) 60 mg DAILY PO 11/30/16 08:00 12/30/16 07:59 12/03/16 08:31 60 MG Linezolid (Zyvox Tab) 600 mg BID PO 12/01/16 10:15 12/08/16 10:14 12/03/16 08:32 600 MG Lorazepam (Ativan Tab) 0.5 mg Q6H PRN PO 12/01/16 23:45 12/31/16 23:44 12/03/16 00:40 0.5 MG I & O: 24-Hour Column 12/03/16 07:59 Intake Total 1190 ml Output Total 550 ml Balance 640 ml Vital Signs: Date Time Temp Pulse Resp B/P Pulse Ox O2 Delivery O2 Flow Rate FiO2 12/03/16 11:37 36.4 84 20 129/75 97 High Flow Oxygen 12/03/16 11:26 83 18 97 Nasal Cannula 40.0 40 12/03/16 08:00 99 High Flow Oxygen 40.0 40 12/03/16 07:55 37.1 73 18 152/85 99 High Flow Oxygen 12/03/16 07:42 70 18 98 Nasal Cannula 40.0 40 12/03/16 04:00 High Flow Oxygen 40.0 40 12/03/16 03:25 36.8 84 22 156/82 96 High Flow Oxygen 12/03/16 00:06 36.9 80 24 159/87 96 High Flow Oxygen 12/03/16 00:00 High Flow Oxygen 40.0 40 12/02/16 20:02 37.0 86 22 133/89 96 High Flow Oxygen 12/02/16 20:00 High Flow Oxygen 40.0 40 12/02/16 19:28 88 24 98 Nasal Cannula 40.0 40 12/02/16 16:00 High Flow Oxygen 40.0 40 12/02/16 15:51 36.5 90 22 143/82 97 High Flow Oxygen 12/02/16 15:14 88 18 96 Nasal Cannula
[2016-12-03] MEDS: ENOXAPARIN 40 MG/0.4 ML SYR SQ SCH (20:33)
[2016-12-03] MEDS: DICLOFENAC SOD 1% GEL 100 GM TUBE EXT SCH (20:34)
[2016-12-03] MEDS: SIMVASTATIN 20 MG TAB PO SCH (20:39)
--- NOTE | 2016-12-03 21:06 | Progress Note ---
Subjective Date of Service: Dec 03, 2016. Subjective Pt evaluation today including: conversation w/ patient, conversation w/ family (daughter by phone), physical exam, chart review, lab review, conversation w/ customs consultant (pulmonary), review of inpatient medication list Pain: none PO Intake: normal/good Voiding: incontinence tele stable overnight. "I feel better today." staff report a very large bowel movement today. not as much dyspnea and not as much cough. Problem List Medical Problems: (1) Cervical strain Status: Acute (2) Fall Status: Acute (3) Head injury Status: Acute (4) Head injury Status: Acute (5) Hip pain Status: Acute (6) Hypoxia Status: Acute (7) Pneumonia Status: Acute (8) Syncope Status: Acute (9) Traumatic compression fracture of third thoracic vertebra Status: Acute Review of Systems Constitutional: No chills, No fever Respiratory: + cough, No dyspnea at rest, No sputum Cardiac: No chest pain Abdomen: No pain, No vomiting Objective Vital Signs Date Time Temp Pulse Resp B/P Pulse Ox O2 Delivery O2 Flow Rate FiO2 12/03/16 20:46 77 16 98 Nasal Cannula 4.0 12/03/16 20:03 86 18 98 Nasal Cannula 40.0 40 12/03/16 19:39 37.0 77 20 137/78 97 High Flow Oxygen 30.0 12/03/16 16:00 98 High Flow Oxygen 40.0 40 12/03/16 15:48 81 18 96 Nasal Cannula 40.0 40 12/03/16 15:22 36.8 85 19 144/83 98 High Flow Oxygen 30.0 12/03/16 12:00 97 High Flow Oxygen 40.0 40 12/03/16 11:37 36.4 84 20 129/75 97 High Flow Oxygen 12/03/16 11:26 83 18 97 Nasal Cannula 40.0 40 12/03/16 08:00 99 High Flow Oxygen 40.0 40 12/03/16 07:55 37.1 73 18 152/85 99 High Flow Oxygen 12/03/16 07:42 70 18 98 Nasal Cannula 40.0 40 12/03/16 04:00 High Flow Oxygen 40.0 40 12/03/16 03:25 36.8 84 22 156/82 96 High Flow Oxygen 12/03/16 00:06 36.9 80 24 159/87 96 High Flow Oxygen 12/03/16 00:00 High Flow Oxygen 40.0 40 Physical Exam General Appearance: no apparent distress, + pertinent finding (looks much better today) ENT: pharynx normal (no thrush) Neck: no JVD Respiratory/Chest: no respiratory distress, no accessory muscle use, + pertinent finding (airation markedly improved; minimal wheeze today; mild rales right base) Cardiovascular: regular rate, rhythm, no gallop, no murmur Abdomen: normal bowel sounds, non tender, soft, no organomegaly, + distended ( but also much improved) Extremities: no pedal edema Neurologic/Psychiatric: alert, oriented x 3 Assessment and Plan 81yo female with: 1. acute hypoxic respiratory failure - previously multifactorial in nature, but now due to MRSA bronchitis/pneumonia. She looks much improved today. Day #3 of zyvox. cont same abx, high flow, and supportive care. hopefully can wean HF NC off next 24 hours. 2. acute/chronic diastolic CHF - acute component resolved. Limited echo with normal appearing IVC on 12/02/16. resumed PO lasix. 3. MRSA pneumonia - day #3 of zyvox; would Rx 10-14 days. IMPROVED. 4. asthma with exacerbation - likely due to MRSA infection. wean to 50mg tomorrow. 5. thrush - nystatin solution qid. Resolved. 6. abdominal distension - 2nd to constipation - resolving. 7. DVT proph - lovenox once daily. 8. CKD stage 3 - creatinine stable. 9. citrobacter UTI - resolved, off abx for this particular pathogen. 10. deconditioning - severe - patient agreeable to rehab. 11. GI proph - PPI twice daily. continue telemetry status until am and transfer to med/surg if doing well Continued [facility] stay due to: ambulation difficulties, multiple IV medications needed, other (ongoing pulmonary issues) Discharge planning: other (rehab, likely SNF level )
[2016-12-04] VITALS (14 sets, daily range): BP systolic 119–150; BP diastolic 62–81; PULSE 56–93; TEMP 36.5–37; O2SAT 92–98
[2016-12-04] MEDS: LEVOTHYROXINE 88 MCG TAB PO SCH (06:23)
[2016-12-04] MEDS: FORMOTEROL FUMA NEBULIZER SOLN 20 MCG/2 ML VIAL INH SCH ×2 (07:32→19:54)
[2016-12-04] MEDS: ACETYLCYSTEINE 20% INHAL SOLN ***DISPENSED BY RESP. INH SCH ×2 (07:32→19:54)
[2016-12-04] MEDS: ALBUT/IPRATROP 3MG/0.5MG NEB 3 ML VIAL INH SCH ×4 (07:32→19:54)
[2016-12-04 08:06] LABS: BUN/CREATININE RATIO 34.3 (10-20); CALCIUM 7.9 mg/dl (8.5-10.1); CREATININE 0.89 mg/dl (0.60-1.20)
[2016-12-04] MEDS: MIDODRINE 2.5 MG TAB PO SCH ×3 (09:23→17:08)
[2016-12-04] MEDS: KETOROLAC 0.5% OP SOLN 3 ML BTL OPL SCH ×4 (09:24→21:00)
[2016-12-04] MEDS: PrednisoLONE ACET 1% OP SUSP 5 ML BTL OPL SCH ×4 (09:24→21:00)
[2016-12-04] MEDS: BOOST VANILLA PO SCH ×6 (09:24→20:00)
[2016-12-04] MEDS: TRIAMCINOLONE ACET NASAL SPRAY 10.8ML BTL NAE SCH (09:24)
[2016-12-04] MEDS: FUROSEMIDE 20 MG TAB PO SCH (09:25)
[2016-12-04] MEDS: POTASSIUM CHLORIDE 20 MEQ TABCR PO SCH ×2 (09:25→21:04)
[2016-12-04] MEDS: GUAIFENESIN 600 MG TABCR PO SCH ×2 (09:26→21:03)
[2016-12-04] MEDS: NYSTATIN SUSP 500,000 U/5 ML UDC PO SCH ×4 (09:26→21:06)
[2016-12-04] MEDS: DOCUSATE SODIUM/SENNA 50/8.6MG TAB PO SCH (09:26)
[2016-12-04] MEDS: BENZONATATE 100MG CAP PO SCH ×3 (09:27→21:02)
[2016-12-04] MEDS: PANTOprazole SOD 40 MG TAB PO SCH ×2 (09:27→21:02)
[2016-12-04] MEDS: CYANOCOBALAMIN 500 MCG TAB (VIT B-12) PO SCH (09:28)
[2016-12-04] MEDS: LIDODERM (LIDOCAINE) PATCH 5% TD SCH (09:28)
[2016-12-04] MEDS: LINEZOLID 600 MG TAB PO SCH ×2 (09:28→21:02)
[2016-12-04] MEDS: METOPROLOL SUCC 25MG EXT REL TAB PO SCH (09:28)
[2016-12-04] MEDS: BUTALBITAL/ACETAMIN/CAFFEINE TAB PO PRN (10:17)
[2016-12-04] MEDS: GABAPENTIN 300 MG CAP PO SCH (11:50)
[2016-12-04] MEDS: TIOTROPIUM BROMIDE 5 PUFF/90 MCG INH INH SCH (20:58)
[2016-12-04] MEDS: SIMVASTATIN 20 MG TAB PO SCH (21:03)
[2016-12-04] MEDS: DICLOFENAC SOD 1% GEL 100 GM TUBE EXT SCH (21:05)
[2016-12-04] MEDS: ENOXAPARIN 40 MG/0.4 ML SYR SQ SCH (21:14)
--- NOTE | 2016-12-04 23:43 | Progress Note ---
Subjective Date of Service: Dec 04, 2016. Subjective Pt evaluation today including: conversation w/ patient, physical exam, chart review, lab review Pain: denies any PO Intake: good, eating meals well Voiding: incontinence (stress) tele stable overnight she feels better still w/ cough but less frequent sitting in chair during my visit Problem List Medical Problems: (1) Cervical strain Status: Acute (2) Fall Status: Acute (3) Head injury Status: Acute (4) Head injury Status: Acute (5) Hip pain Status: Acute (6) Hypoxia Status: Acute (7) Pneumonia Status: Acute (8) Syncope Status: Acute (9) Traumatic compression fracture of third thoracic vertebra Status: Acute Review of Systems Constitutional: No chills, No fever Cardiac: No chest pain, No orthopnea Abdomen: No constipation, No pain Objective Vital Signs Date Time Temp Pulse Resp B/P Pulse Ox O2 Delivery O2 Flow Rate FiO2 12/04/16 23:32 37.0 93 18 123/77 92 Room Air 12/04/16 19:05 80 18 98 Nasal Cannula 3.0 12/04/16 16:40 95 Nasal Cannula 2.0 Humidified Oxygen 12/04/16 15:39 74 18 95 Nasal Cannula 3.0 12/04/16 15:23 36.9 80 20 119/70 96 Nasal Cannula 3.0 12/04/16 12:06 84 18 98 Nasal Cannula 3.0 12/04/16 11:15 36.9 85 20 130/79 98 Nasal Cannula 3.0 12/04/16 11:12 36.8 56 18 94 3.0 12/04/16 08:00 94 Nasal Cannula 3.0 12/04/16 07:37 56 18 97 Nasal Cannula 3.0 12/04/16 07:10 36.8 77 20 142/81 94 Nasal Cannula 3.0 12/04/16 04:00 36.6 78 18 142/65 96 Nasal Cannula 3.0 12/04/16 04:00 Nasal Cannula 3.0 12/04/16 00:00 36.5 86 20 150/62 97 Nasal Cannula 3.0 12/04/16 00:00 Nasal Cannula 3.0 Physical Exam General Appearance: no apparent distress ENT: pharynx normal Neck: no JVD Respiratory/Chest: no respiratory distress, no accessory muscle use, + accessory muscle use, + wheezing Cardiovascular: regular rate, rhythm, no gallop Abdomen: normal bowel sounds, non tender, soft, no organomegaly Extremities: no pedal edema Laboratory Results Last 24 Hours Test 12/04/16 07:25 Sodium Level 142 mmol/L Potassium Level 4.0 mmol/L Chloride Level 104 mmol/L Carbon Dioxide Level 29 mmol/L Anion Gap 9.0 mmol/L Blood Urea Nitrogen 31 mg/dl Creatinine 0.89 mg/dl Est Creatinine Clear Calc Drug Dose 53.7 ml/min Estimated GFR () 71.4 Estimated GFR (Non- 61.6 BUN/Creatinine Ratio 34.3 Random Glucose 104 mg/dl Calcium Level 7.9 mg/dl Assessment and Plan 81yo female with: 1. acute hypoxic respiratory failure -2nd to MRSA bronchitis/pneumonia. Continues with improvement. High-flow NC has been d/c. Day #4 of zyvox. Plan 10-14 day course of such. 2. acute/chronic diastolic CHF - compensated. 3. MRSA pneumonia - day #4 of zyvox; would Rx 10-14 days. IMPROVED. 4. asthma with exacerbation - likely due to MRSA infection. on 50mg of prednisone. leave at this dose tomorrow, then 40mg after that. 5. thrush - nystatin solution qid. Resolved. 6. abdominal distension - 2nd to constipation - resolved. 7. DVT proph - lovenox once daily. 8. CKD stage 3 - creatinine stable. 9. citrobacter UTI - resolved, off abx for this particular pathogen. 10. deconditioning - severe - patient agreeable to rehab. hopefully to rehab this week. 11. GI proph - PPI twice daily. transfer to med/surg Continued [facility] stay due to: ambulation difficulties, multiple IV medications needed, other (ongoing pulmonary issues) Discharge planning: other (rehab, likely SNF level )
[2016-12-05] VITALS (9 sets, daily range): BP systolic 124–176; BP diastolic 78–87; PULSE 72–89; TEMP 36.5–37; O2SAT 97–100
[2016-12-05] MEDS: LEVOTHYROXINE 88 MCG TAB PO SCH (05:55)
[2016-12-05] MEDS: ALBUT/IPRATROP 3MG/0.5MG NEB 3 ML VIAL INH SCH ×4 (07:26→19:46)
[2016-12-05] MEDS: FORMOTEROL FUMA NEBULIZER SOLN 20 MCG/2 ML VIAL INH SCH ×2 (07:26→19:46)
[2016-12-05] MEDS: ACETYLCYSTEINE 20% INHAL SOLN ***DISPENSED BY RESP. INH SCH ×2 (07:26→19:46)
[2016-12-05] MEDS: TIOTROPIUM BROMIDE 5 PUFF/90 MCG INH INH SCH (08:10)
[2016-12-05] MEDS: TRIAMCINOLONE ACET NASAL SPRAY 10.8ML BTL NAE SCH (08:11)
[2016-12-05] MEDS: KETOROLAC 0.5% OP SOLN 3 ML BTL OPL SCH ×4 (08:12→21:14)
[2016-12-05] MEDS: PrednisoLONE ACET 1% OP SUSP 5 ML BTL OPL SCH ×4 (08:12→21:14)
[2016-12-05] MEDS: BOOST VANILLA PO SCH ×6 (08:13→21:16)
[2016-12-05] MEDS: POTASSIUM CHLORIDE 20 MEQ TABCR PO SCH ×2 (08:14→21:15)
[2016-12-05] MEDS: FUROSEMIDE 20 MG TAB PO SCH (08:14)
[2016-12-05] MEDS: NYSTATIN SUSP 500,000 U/5 ML UDC PO SCH ×4 (08:15→21:15)
[2016-12-05] MEDS: MIDODRINE 2.5 MG TAB PO SCH ×3 (08:15→17:02)
[2016-12-05] MEDS: GUAIFENESIN 600 MG TABCR PO SCH ×2 (08:15→21:15)
[2016-12-05] MEDS: PANTOprazole SOD 40 MG TAB PO SCH ×2 (08:16→21:15)
[2016-12-05] MEDS: BENZONATATE 100MG CAP PO SCH ×3 (08:17→21:14)
[2016-12-05] MEDS: DOCUSATE SODIUM/SENNA 50/8.6MG TAB PO SCH (08:17)
[2016-12-05] MEDS: METOPROLOL SUCC 25MG EXT REL TAB PO SCH (08:18)
[2016-12-05] MEDS: CYANOCOBALAMIN 500 MCG TAB (VIT B-12) PO SCH (08:19)
[2016-12-05] MEDS: LINEZOLID 600 MG TAB PO SCH ×2 (08:19→21:15)
[2016-12-05] MEDS: LIDODERM (LIDOCAINE) PATCH 5% TD SCH (08:20)
[2016-12-05] MEDS: GABAPENTIN 300 MG CAP PO SCH (12:43)
[2016-12-05] MEDS: SIMVASTATIN 20 MG TAB PO SCH (21:15)
[2016-12-05] MEDS: ENOXAPARIN 40 MG/0.4 ML SYR SQ SCH (21:16)
[2016-12-05] MEDS: DICLOFENAC SOD 1% GEL 100 GM TUBE EXT SCH (21:16)
[2016-12-06] VITALS (10 sets, daily range): BP systolic 119–164; BP diastolic 70–90; PULSE 70–95; TEMP 36.4–36.6; O2SAT 93–98
--- NOTE | 2016-12-06 00:34 | Progress Note ---
Subjective Date of Service: Dec 05, 2016. Subjective Pt evaluation today including: conversation w/ patient, conversation w/ family (daughter by phone), physical exam, chart review, lab review, review of inpatient medication list Pain: denies PO Intake: normal Voiding: incontinence patient states "I feel really good" offers no complaints today still is OK with going to rehab slept better last pm Problem List Medical Problems: (1) Cervical strain Status: Acute (2) Fall Status: Acute (3) Head injury Status: Acute (4) Head injury Status: Acute (5) Hip pain Status: Acute (6) Hypoxia Status: Acute (7) Pneumonia Status: Acute (8) Syncope Status: Acute (9) Traumatic compression fracture of third thoracic vertebra Status: Acute Review of Systems Constitutional: No fever Respiratory: + cough, No dyspnea on exertion, No shortness of breath, No sputum , No wheezing Cardiac: No chest pain, No orthopnea Abdomen: No pain Objective Vital Signs Date Time Temp Pulse Resp B/P Pulse Ox O2 Delivery O2 Flow Rate FiO2 12/05/16 22:42 36.9 75 18 146/87 98 Nasal Cannula 2.0 12/05/16 21:45 Nasal Cannula 1.0 12/05/16 19:46 80 20 97 Nasal Cannula 1.0 12/05/16 16:30 Nasal Cannula 1.0 12/05/16 16:06 Nasal Cannula 1.0 12/05/16 15:31 84 20 100 Nasal Cannula 1.0 12/05/16 15:05 37.0 89 16 143/84 98 Nasal Cannula 2.0 12/05/16 13:33 98 Nasal Cannula 2.0 12/05/16 11:44 77 20 97 Nasal Cannula 2.0 12/05/16 11:22 78 22 124/78 12/05/16 07:57 Nasal Cannula 2.0 12/05/16 07:26 72 20 98 Nasal Cannula 2.0 12/05/16 07:17 36.5 80 18 176/82 98 Nasal Cannula 2.0 Physical Exam General Appearance: no apparent distress, + pertinent finding (looks great today) ENT: pharynx normal (thrush resolved) Neck: no JVD Respiratory/Chest: no respiratory distress, no accessory muscle use, + crackles (right base with decreased BS right base), + pertinent finding (NO WHEEZING TODAY) Cardiovascular: regular rate, rhythm, no gallop, no murmur Abdomen: normal bowel sounds, non tender, soft, no organomegaly Extremities: no pedal edema Assessment and Plan 81yo female with: 1. acute hypoxic respiratory failure -2nd to MRSA bronchitis/pneumonia. Improving very nicely with zyvox. Day #5 of zyvox. Plan 10-14 day course of such. 2. acute/chronic diastolic CHF - compensated. 3. MRSA pneumonia - day #5 of zyvox; would Rx 10-14 days. IMPROVED. 4. asthma with exacerbation - likely due to MRSA infection. Wean prednisone to 40mg tomorrow AM. Need to clarify with patient/daughter if she was taking prednisone chronically or just using for flares. 5. thrush - nystatin solution qid. Resolved. 6. abdominal distension - 2nd to constipation - resolved. 7. DVT proph - lovenox once daily. 8. CKD stage 3 - creatinine stable. repeat BMP in am for stability. 9. citrobacter UTI - resolved, off abx for this particular pathogen. 10. deconditioning - severe - patient agreeable to rehab. hopefully to rehab this week. referral placed to [facility]. 11. GI proph - PPI twice daily. I am incredibly pleased by her progress once she got on zyvox for MRSA found on bronchoscopy she made steady improvement daughter updated by phone this evening Continued [facility] stay due to: ambulation difficulties, multiple IV medications needed, other (ongoing pulmonary issues) Discharge planning: other (rehab, likely SNF level )
[2016-12-06] MEDS: LEVOTHYROXINE 88 MCG TAB PO SCH (06:40)
[2016-12-06 07:01] LABS: HEMATOCRIT 32.7 % (37-47); MEAN CELL VOLUME 91.1 fL (80-100); MEAN CORPUSCULAR HEMOGLOBIN 29.2 pg (25-34); MEAN CORPUSCULAR HGB CONC 32.1 g/dl (32-36); MEAN PLATELET VOLUME 9.8 fL (7.4-10.4); PLATELET COUNT 224 K/uL (130-400); RED BLOOD COUNT 3.59 M/uL (4.2-5.4); WHITE BLOOD COUNT 7.07 K/uL (4.8-10.8)
[2016-12-06 07:09] LABS: BUN/CREATININE RATIO 29.6 (10-20); CALCIUM 7.8 mg/dl (8.5-10.1); CREATININE 0.91 mg/dl (0.60-1.20); POTASSIUM 4.2 mmol/L (3.5-5.1)
[2016-12-06] MEDS: ALBUT/IPRATROP 3MG/0.5MG NEB 3 ML VIAL INH SCH ×4 (07:35→19:22)
[2016-12-06] MEDS: ACETYLCYSTEINE 20% INHAL SOLN ***DISPENSED BY RESP. INH SCH ×2 (07:35→19:22)
[2016-12-06] MEDS: FORMOTEROL FUMA NEBULIZER SOLN 20 MCG/2 ML VIAL INH SCH ×2 (07:35→19:22)
--- NOTE | 2016-12-06 08:08 | DIAGNOSTIC IMAGING REPORT ---
CHEST 2 VIEWS ROUTINE CLINICAL HISTORY: crackles pain COMPARISON STUDY: 12/01/2016. FINDINGS: small parenchymal infiltrate left base. Mild bibasilar atelectasis. Trace pleural fluid right lateral costophrenic angle. IMPRESSION: Small left basilar infiltrate. Small bilateral pleural effusions. Mild atelectasis right base. Electronically signed by: Vignesh Kim M.D. 12/06/2016 8:07 AM Dictated Date/Time: 12/06/2016 8:05 AM
[2016-12-06] MEDS: CYANOCOBALAMIN 500 MCG TAB (VIT B-12) PO SCH (08:36)
[2016-12-06] MEDS: NYSTATIN SUSP 500,000 U/5 ML UDC PO SCH ×4 (08:37→20:35)
[2016-12-06] MEDS: POTASSIUM CHLORIDE 20 MEQ TABCR PO SCH ×2 (08:37→20:34)
[2016-12-06] MEDS: BENZONATATE 100MG CAP PO SCH ×3 (08:37→20:36)
[2016-12-06] MEDS: MIDODRINE 2.5 MG TAB PO SCH ×3 (08:37→17:08)
[2016-12-06] MEDS: TIOTROPIUM BROMIDE 5 PUFF/90 MCG INH INH SCH (08:37)
[2016-12-06] MEDS: LINEZOLID 600 MG TAB PO SCH ×2 (08:38→20:36)
[2016-12-06] MEDS: LIDODERM (LIDOCAINE) PATCH 5% TD SCH (08:38)
[2016-12-06] MEDS: PANTOprazole SOD 40 MG TAB PO SCH ×2 (08:38→20:35)
[2016-12-06] MEDS: FUROSEMIDE 20 MG TAB PO SCH (08:38)
[2016-12-06] MEDS: DOCUSATE SODIUM/SENNA 50/8.6MG TAB PO SCH (08:38)
[2016-12-06] MEDS: KETOROLAC 0.5% OP SOLN 3 ML BTL OPL SCH ×4 (08:39→20:32)
[2016-12-06] MEDS: TRIAMCINOLONE ACET NASAL SPRAY 10.8ML BTL NAE SCH (08:39)
[2016-12-06] MEDS: GUAIFENESIN 600 MG TABCR PO SCH ×2 (08:39→20:34)
[2016-12-06] MEDS: PrednisoLONE ACET 1% OP SUSP 5 ML BTL OPL SCH ×4 (08:39→20:32)
[2016-12-06] MEDS: BOOST VANILLA PO SCH ×6 (08:39→20:33)
[2016-12-06] MEDS ORDERED: NURSING DECISION MEDICATION ORDER SCH (08:45)
[2016-12-06] MEDS ORDERED: LINACLOTIDE 290 MCG CAP PO PRN (10:00)
--- NOTE | 2016-12-06 10:17 | Hospitalist Progress Note ---
Hospitalist Progress Note Date of Service Dec 06, 2016. Subjective Pt evaluation today including: conversation w/ patient, physical exam, chart review, lab review, review of studies, review of inpatient medication list Patient seated at bedside for morning meal. She declines having SOB or chest pain. She has not had fever or chills. Her cough is reported as " a little bit " and is non-productive. Additional Comments: A 10 system review was performed and all were negative. Positives were placed in the subjective section. Objective Vital Signs Date Time Temp Pulse Resp B/P Pulse Ox O2 Delivery O2 Flow Rate FiO2 12/06/16 07:35 76 20 97 Nasal Cannula 1.0 12/06/16 06:58 36.6 70 18 164/90 96 Nasal Cannula 1.0 12/06/16 00:40 Nasal Cannula 1.0 12/05/16 22:42 36.9 75 18 146/87 98 Nasal Cannula 2.0 12/05/16 21:45 Nasal Cannula 1.0 12/05/16 19:46 80 20 97 Nasal Cannula 1.0 12/05/16 16:30 Nasal Cannula 1.0 12/05/16 16:06 Nasal Cannula 1.0 12/05/16 15:31 84 20 100 Nasal Cannula 1.0 12/05/16 15:05 37.0 89 16 143/84 98 Nasal Cannula 2.0 12/05/16 13:33 98 Nasal Cannula 2.0 12/05/16 11:44 77 20 97 Nasal Cannula 2.0 12/05/16 11:22 78 22 124/78 Physical Exam Notes: GEN: Awake, alert. Not in acute distress HEENT: Tm's intact, no inflammation, EOMI, PERRLA, MMM Neck: Soft, supple Lungs: decreased breath sounds at the right base otherwise clear. Heart: REG, nrl S1S2 without murmurs, rubs or gallops Abdomen: Soft, NT, ND, + BS EXT: No C/C/E NEURO: CN's II-XII grossly intact, non-focal Skin: warm, dry, no rashes PSYCH: pleasant, cooperative. Laboratory Results Last 24 Hours Test 12/06/16 05:58 White Blood Count 7.07 K/uL Red Blood Count 3.59 M/uL Hemoglobin 10.5 g/dL Hematocrit 32.7 % Mean Corpuscular Volume 91.1 fL Mean Corpuscular Hemoglobin 29.2 pg Mean Corpuscular Hemoglobin Concent 32.1 g/dl Platelet Count 224 K/uL Mean Platelet Volume 9.8 fL RDW Standard Deviation 57.1 fL RDW Coefficient of Variation 17.4 % Nucleated RBC Absolute Count (auto) 0.02 K/uL Nucleated Red Blood Cells % 0.3 % Sodium Level 140 mmol/L Potassium Level 4.2 mmol/L Chloride Level 103 mmol/L Carbon Dioxide Level 33 mmol/L Anion Gap 4.0 mmol/L Blood Urea Nitrogen 27 mg/dl Creatinine 0.91 mg/dl Est Creatinine Clear Calc Drug Dose 52.4 ml/min Estimated GFR () 69.5 Estimated GFR (Non- 60.0 BUN/Creatinine Ratio 29.6 Random Glucose 123 mg/dl Calcium Level 7.8 mg/dl Assessment and Plan 1) MRSA pneumonia - On day #6 of Zyvox 2) Acute/chronic diastolic CHF - continues to be compensated 3) Oral thrush - treating with Nystatin 4) Asthma exacerbation - improving, weaning steroids. 5) UTI - Citrobacter. This treatment was completed. 6) Deconditioning - chart indicates that this is severe. Plans to transition to [facility]. DVT prophylaxis - Lovenox.
[2016-12-06 10:43] LABS: BASO % 0.4 %; BASO ABS # 0.03 K/uL (0-0.2); COMPLETE YES; EOS % 0.1 %; IG% 7.8 %; LYMPH % 18.1 %; LYMPH ABS # 1.28 K/uL (1.2-3.4); MONO % 9.6 %
--- NOTE | 2016-12-06 12:10 | Pulmonology Progress Note ---
Pulmonary Progress Note Date of Service Dec 06, 2016. Attending Dr. Clayton Subjective Continued non-productive cough. Denies dyspnea. Patient reports ambulating without respiratory distress. Denies pain or GI symptoms. Objective 81-yo female admitted to [facility] 11/11/16 with progressive dyspnea and hypoxia. CTA 11/14/16: small right pleural effusion, RML adn bilaterla lower lob opacities, stable 4mm pulmonary nodule - no PE. Hospital course notable for treatment of Citrobacter freundii complex urinary pathogen and generalized deconditioning. Bronchoscopy 11/28/16 + BAL MRSA pneumonia/bronchiectasis. Swallow evaluation: negative for aspiration. She was treated with mucolytics, antibiotic (current linezolid), bronchodilators, bowel regimen and steroid with very slow clinical improvement. Today: - 96-98% 1-2LPM NC - Afebrile, hypertensive - WBC/Hgb/Hct/Plts: 7.07/10.5/32.7/224 - CO2: 33 - Prednisone: 40mg - Linezolid: day # 03/01 Physical Exam: Constitutional: Elderly chronically ill appearing female dozing in bedside chair. No acute distress. HEENT: + facial symmetry. EOMi, PERRLA, moist mucous membranes. Respiratory: Shallow respirations without accessory muscle use. No cough. Coarse bilateral crackles most pronounced right anterior and left base. No wheeze. Cardiovascular: RRR with distant heart sounds. Warm and perfused peripherally. GI: Abdomen soft, protuberant. Active bowel sounds MSK/Extremities: moving symmetrically. No peripheral edema. Ecchymosis without induration in areas of prior IV. Generalized weakness Neurologic: Wakens to voice easily. Follows commands. Phsychiatric: Flat affect. Assessment & Plan 81-year-old female with progressive respiratory insufficiency and MRSA + on BAL complicated by physical deconditioning. 1. Discontinue mucolytic/Mucomyst tomorrow 2. Continue Spiriva daily and QID duo-nebs 3. PT/OT and encouraged bedside spirometry and flutter 4. Will need significant rehab outpatient (anticipate discharge to [facility]) 5. Complete 10-14-day course antibiotic as planned 6. Slow steroid taper given the length of of her hospital stay and previous high doses: Decrease by 5mg Q 3 days and hold 10mg until follow-up with pulmonary 6. Will need CXR in 6-weeks (outpatient). Data Medications: Current Inpatient Medications Medications (Trade) Dose Ordered Sig/Natasha Route Start Time Stop Time Status Last Admin Dose Admin Enoxaparin Sodium (Lovenox Inj) 40 mg Q24H SQ 11/11/16 20:00 12/11/16 19:59 12/05/16 21:16 40 MG Al Hydrox/Mg Hydrox/Simethicone (Maalox Max Susp) 15 ml Q4H PRN PO 11/11/16 15:15 12/11/16 15:14 Ondansetron HCl (Zofran Inj) 4 mg Q6H PRN IV 11/11/16 15:15 12/11/16 15:14 Albuterol/ Ipratropium (Duoneb) 3 ml QIDR INH 11/11/16 16:00 12/11/16 15:59 12/05/16 15:31 3 ML Acetaminophen/ Butalbital/ Caffeine (Fioricet Tab) 1 tab Q4 PRN PO 11/11/16 16:30 12/11/16 16:29 12/04/16 10:17 1 TAB Baclofen (Lioresal Tab) 10 mg TID PRN PO 11/11/16 16:30 12/11/16 16:29 11/30/16 14:35 10 MG Cyanocobalamin (Vitamin B-12 Tab) 1,000 mcg DAILY PO 11/12/16 08:00 12/12/16 07:59 12/06/16 08:36 1,000 MCG Gabapentin (Neurontin Cap) 300 mg DAILY@1200 PO 11/12/16 12:00 12/12/16 11:59 12/05/16 12:43 300 MG Levothyroxine Sodium (Synthroid Tab) 88 mcg DAILYBB PO 11/12/16 06:30 12/12/16 06:29 12/06/16 06:40 88 MCG Prednisolone Acetate (Pred Forte 1% Oph Susp) 1 drops QID OPL 11/11/16 17:00 12/11/16 16:59 12/06/16 08:39 1 DROPS Ropinirole HCl (Requip Tab) 0.5 mg HS PRN PO 11/11/16 16:30 12/11/16 16:29 11/28/16 14:28 0.5 MG Simvastatin (Zocor Tab) 20 mg HS PO 11/11/16 22:00 12/11/16 21:59 12/05/16 21:15 20 MG Pantoprazole Sodium (Protonix Tab) 40 mg BID PO 11/11/16 20:00 12/11/16 19:59 12/06/16 08:38 40 MG Potassium Chloride (Klor-Con Tab) 20 meq BID PO 11/11/16 20:00 12/11/16 19:59 12/06/16 08:37 20 MEQ Tiotropium [place] (Spiriva Handihaler Inhaler) 1 puff DAILY INH 11/12/16 08:00 12/12/16 07:59 Future hold 12/06/16 08:37 1 PUFF Menthol (Nice Jass) 1 jass PRN PRN PO 11/11/16 19:00 12/11/16 18:59 11/11/16 20:02 1 JASS Diclofenac Sodium (Voltaren 1% Top Gel) 1 appln HS EXT 11/16/16 22:00 12/16/16 21:59 12/05/16 21:16 1 APPLN Benzonatate (Tessalon Perles Cap) 100 mg TID PO 11/17/16 08:00 12/17/16 07:59 12/06/16 08:37 100 MG Enteral Nutritional Formula (Boost) 1 can TID PO 11/17/16 14:00 12/17/16 13:59 12/06/16 08:39 1 CAN Ibuprofen (Advil Tab) 400 mg QID PRN PO 11/17/16 14:30 12/17/16 14:29 12/03/16 11:12 400 MG Miscellaneous (Remove Lidoderm Patch) 1 ea DAILY@21 N/A 11/19/16 21:00 12/29/16 20:59 12/05/16 21:17 1 EA Midodrine (Proamatine Tab) 2.5 mg TID@ PO 11/20/16 17:00 12/20/16 16:59 12/06/16 08:37 2.5 MG Guaifenesin (Mucinex Contr Rel Tab) 1,200 mg BID PO 11/21/16 20:00 12/21/16 19:59 12/06/16 08:39 1,200 MG Formoterol Fumarate (Perforomist 20MCG/2ML Neb Soln) 20 mcg BIDR INH 11/21/16 20:00 12/21/16 19:59 12/06/16 07:35 20 MCG Diphenoxylate HCl/ Atropine (Lomotil Tab) 1 tab Q6 PRN PO 11/23/16 16:00 12/23/16 15:59 11/23/16 16:50 1 TAB Furosemide (Lasix Tab) 20 mg QAM PO 11/24/16 08:00 12/24/16 07:59 Future hold 12/06/16 08:38 20 MG Acetylcysteine (Mucomyst 20% Inh Soln) 3 ml BIDR INH 11/25/16 20:00 12/25/16 19:59 12/06/16 07:35 3 ML Senna/Docusate Sodium (Senokot S Tab) 1 tab QAM PO 11/26/16 08:30 12/26/16 08:29 12/06/16 08:38 1 TAB Ketorolac Tromethamine (Acular 0.5 Oph Soln) 1 drops QID OPL 11/26/16 12:00 12/11/16 16:59 12/06/16 08:39 1 DROPS Nystatin (Mycostatin Susp) 5 ml QID PO 11/28/16 12:00 12/08/16 11:59 12/06/16 08:37 5 ML Lidocaine (Lidoderm Patch 5%) 2 patch QAM TD 11/30/16 08:00 12/30/16 07:59 12/06/16 08:38 2 PATCH Triamcinolone Acetonide (Nasacort Allergy 24hr) 2 sprays DAILY LATASHA 11/29/16 12:30 12/29/16 12:29 12/06/16 08:39 2 SPRAYS Linezolid (Zyvox Tab) 600 mg BID PO 12/01/16 10:15 12/08/16 10:14 12/06/16 08:38 600 MG Lorazepam (Ativan Tab) 0.5 mg Q6H PRN PO 12/01/16 23:45 12/31/16 23:44 12/03/16 00:40 0.5 MG Prednisone (PredniSONE TAB) 40 mg DAILY PO 12/06/16 08:00 01/05/17 07:59 12/06/16 08:56 40 MG Metoprolol Succinate (Toprol Xl Tab) 12.5 mg QPM PO 12/06/16 21:00 01/05/17 20:59 Linaclotide (Linzess) 290 mcg DAILY PRN PO 12/06/16 10:00 01/05/17 09:59 I & O: 24-Hour Column 12/06/16 07:59 Intake Total 420 ml Balance 420 ml Vital Signs: Date Time Temp Pulse Resp B/P Pulse Ox O2 Delivery O2 Flow Rate FiO2 12/06/16 07:35 76 20 97 Nasal Cannula 1.0 12/06/16 06:58 36.6 70 18 164/90 96 Nasal Cannula 1.0 12/06/16 00:40 Nasal Cannula 1.0 12/05/16 22:42 36.9 75 18 146/87 98 Nasal Cannula 2.0 12/05/16 21:45 Nasal Cannula 1.0 12/05/16 19:46 80 20 97 Nasal Cannula 1.0 12/05/16 16:30 Nasal Cannula 1.0 12/05/16 16:06 Nasal Cannula 1.0 12/05/16 15:31 84 20 100 Nasal Cannula 1.0 12/05/16 15:05 37.0 89 16 143/84 98 Nasal Cannula 2.0 12/05/16 13:33 98 Nasal Cannula 2.0 Laboratory Results: Last 24 Hours Test 12/06/16 05:58 White Blood Count 7.07 K/uL Red Blood Count 3.59 M/uL Hemoglobin 10.5 g/dL Hematocrit 32.7 % Mean Corpuscular Volume 91.1 fL Mean Corpuscular Hemoglobin 29.2 pg Mean Corpuscular Hemoglobin Concent 32.1 g/dl Platelet Count 224 K/uL Mean Platelet Volume 9.8 fL Neutrophils (%) (Auto) 64.0 % Lymphocytes (%) (Auto) 18.1 % Monocytes (%) (Auto) 9.6 % Eosinophils (%) (Auto) 0.1 % Basophils (%) (Auto) 0.4 % Neutrophils # (Auto) 4.52 K/uL Lymphocytes # (Auto) 1.28 K/uL Monocytes # (Auto) 0.68 K/uL Eosinophils # (Auto) 0.01 K/uL Basophils # (Auto) 0.03 K/uL RDW Standard Deviation 57.1 fL RDW Coefficient of Variation 17.4 % Immature Granulocyte % (Auto) 7.8 % Immature Granulocyte # (Auto) 0.55 K/uL Nucleated RBC Absolute Count (auto) 0.02 K/uL Nucleated Red Blood Cells % 0.3 % Sodium Level 140 mmol/L Potassium Level 4.2 mmol/L Chloride Level 103 mmol/L Carbon Dioxide Level 33 mmol/L Anion Gap 4.0 mmol/L Blood Urea Nitrogen 27 mg/dl Creatinine 0.91 mg/dl Est Creatinine Clear Calc Drug Dose 52.4 ml/min Estimated GFR () 69.5 Estimated GFR (Non- 60.0 BUN/Creatinine Ratio 29.6 Random Glucose 123 mg/dl Calcium Level 7.8 mg/dl
[2016-12-06] MEDS: GABAPENTIN 300 MG CAP PO SCH (12:25)
[2016-12-06] MEDS: BUTALBITAL/ACETAMIN/CAFFEINE TAB PO PRN (14:44)
[2016-12-06] MEDS: ENOXAPARIN 40 MG/0.4 ML SYR SQ SCH (20:37)
[2016-12-06] MEDS: DICLOFENAC SOD 1% GEL 100 GM TUBE EXT SCH (20:37)
[2016-12-06] MEDS: METOPROLOL SUCC 25MG EXT REL TAB PO SCH (20:40)
[2016-12-06] MEDS: SIMVASTATIN 20 MG TAB PO SCH (20:40)
[2016-12-07] VITALS (9 sets, daily range): BP systolic 125–235; BP diastolic 74–81; PULSE 74–93; TEMP 36.4–37; O2SAT 96–100
[2016-12-07] MEDS: LEVOTHYROXINE 88 MCG TAB PO SCH (06:02)
[2016-12-07] MEDS: FORMOTEROL FUMA NEBULIZER SOLN 20 MCG/2 ML VIAL INH SCH ×2 (07:11→19:17)
[2016-12-07] MEDS: ALBUT/IPRATROP 3MG/0.5MG NEB 3 ML VIAL INH SCH ×4 (07:11→19:16)
[2016-12-07] MEDS: ACETYLCYSTEINE 20% INHAL SOLN ***DISPENSED BY RESP. INH SCH ×2 (07:11→19:17)
[2016-12-07] MEDS: DOCUSATE SODIUM/SENNA 50/8.6MG TAB PO SCH (09:38)
[2016-12-07] MEDS: CYANOCOBALAMIN 500 MCG TAB (VIT B-12) PO SCH (09:38)
[2016-12-07] MEDS: LINEZOLID 600 MG TAB PO SCH ×2 (09:39→20:56)
[2016-12-07] MEDS: PANTOprazole SOD 40 MG TAB PO SCH ×2 (09:39→20:55)
[2016-12-07] MEDS: MIDODRINE 2.5 MG TAB PO SCH ×3 (09:40→17:23)
[2016-12-07] MEDS: TIOTROPIUM BROMIDE 5 PUFF/90 MCG INH INH SCH (09:41)
[2016-12-07] MEDS: BOOST VANILLA PO SCH ×6 (09:41→20:53)
[2016-12-07] MEDS: FUROSEMIDE 20 MG TAB PO SCH (09:41)
[2016-12-07] MEDS: POTASSIUM CHLORIDE 20 MEQ TABCR PO SCH ×2 (09:42→20:54)
[2016-12-07] MEDS: GUAIFENESIN 600 MG TABCR PO SCH ×2 (09:42→20:55)
[2016-12-07] MEDS: NYSTATIN SUSP 500,000 U/5 ML UDC PO SCH ×2 (09:42→12:07)
[2016-12-07] MEDS: PrednisoLONE ACET 1% OP SUSP 5 ML BTL OPL SCH ×4 (09:43→20:52)
[2016-12-07] MEDS: TRIAMCINOLONE ACET NASAL SPRAY 10.8ML BTL NAE SCH (09:43)
[2016-12-07] MEDS: KETOROLAC 0.5% OP SOLN 3 ML BTL OPL SCH ×4 (09:43→20:52)
[2016-12-07] MEDS: LIDODERM (LIDOCAINE) PATCH 5% TD SCH (09:44)
[2016-12-07] MEDS: BENZONATATE 100MG CAP PO SCH ×3 (09:44→20:55)
[2016-12-07] MEDS: FLUCONAZOLE 100 MG TAB PO SCH (09:50)
[2016-12-07] MEDS: GABAPENTIN 300 MG CAP PO SCH (12:07)
--- NOTE | 2016-12-07 14:04 | Hospitalist Progress Note ---
Hospitalist Progress Note Date of Service Dec 07, 2016. Subjective Pt evaluation today including: conversation w/ patient, physical exam, chart review, lab review, review of studies, review of inpatient medication list Patient has no complaints or concerns today. She tells me that she is breathing OK. Awaiting for word from [facility] regarding placement. Additional Comments: A 10 system review was performed and all were negative. Positives were placed in the subjective section. Objective Vital Signs Date Time Temp Pulse Resp B/P Pulse Ox O2 Delivery O2 Flow Rate FiO2 12/07/16 12:10 93 125/74 12/07/16 11:23 89 18 96 Nasal Cannula 1.0 12/07/16 09:45 Nasal Cannula 1.0 Humidified Oxygen 12/07/16 07:36 37.0 77 16 158/81 100 Nasal Cannula 1.0 12/07/16 07:11 74 18 97 Nasal Cannula 1.0 12/07/16 00:45 Nasal Cannula 1.0 12/06/16 23:42 36.5 86 18 119/70 96 Nasal Cannula 1.0 12/06/16 20:30 90 127/75 12/06/16 19:22 83 20 98 Nasal Cannula 1.0 12/06/16 15:45 97 Nasal Cannula 1.0 12/06/16 15:13 77 18 97 Nasal Cannula 1.0 12/06/16 15:06 36.4 95 20 120/74 97 Nasal Cannula 1.0 12/06/16 14:42 93 Physical Exam Notes: GEN: Awake, alert Not in acute distress HEENT: Tm's intact, no inflammation, EOMI, PERRLA, MMM Neck: Soft, supple Lungs: CTA b/l, no r/r/w Heart: REG, nrl S1S2 without murmurs, rubs or gallops Abdomen: Soft, NT, ND, + BS EXT: No C/C + trace edema at the ankles. NEURO: CN's II-XII grossly intact, non-focal Skin: warm, dry, no rashes PSYCH: pleasant, cooperative. Assessment and Plan 1) MRSA pneumonia - On day #7/14 of Zyvox now oral dosing. 2) Acute/chronic diastolic CHF - continues to be compensated. 3) Oral thrush - treating with Diflucan. 4) Asthma exacerbation - improving, weaning steroids. 5) UTI - Citrobacter. This treatment was completed. 6) Deconditioning - chart indicates that this is severe. Plans to transition to [facility]. DVT prophylaxis - Lovenox.
[2016-12-07] MEDS: BUTALBITAL/ACETAMIN/CAFFEINE TAB PO PRN (17:54)
[2016-12-07] MEDS: ENOXAPARIN 40 MG/0.4 ML SYR SQ SCH (20:57)
[2016-12-07] MEDS: DICLOFENAC SOD 1% GEL 100 GM TUBE EXT SCH (20:57)
[2016-12-07] MEDS: METOPROLOL SUCC 25MG EXT REL TAB PO SCH (20:58)
[2016-12-08] VITALS (11 sets, daily range): BP systolic 138–149; BP diastolic 75–79; PULSE 79–97; TEMP 36.5–36.8; O2SAT 93–97
[2016-12-08 05:39] LABS: HEMATOCRIT 32.9 % (37-47); MEAN CELL VOLUME 89.2 fL (80-100); MEAN CORPUSCULAR HEMOGLOBIN 29.3 pg (25-34); MEAN CORPUSCULAR HGB CONC 32.8 g/dl (32-36); MEAN PLATELET VOLUME 9.1 fL (7.4-10.4); PLATELET COUNT 232 K/uL (130-400); RED BLOOD COUNT 3.69 M/uL (4.2-5.4); WHITE BLOOD COUNT 7.67 K/uL (4.8-10.8)
[2016-12-08] MEDS: LEVOTHYROXINE 88 MCG TAB PO SCH (06:09)
[2016-12-08 06:14] LABS: BUN/CREATININE RATIO 30.4 (10-20); CALCIUM 7.7 mg/dl (8.5-10.1); POTASSIUM 4.2 mmol/L (3.5-5.1)
[2016-12-08] MEDS: ACETYLCYSTEINE 20% INHAL SOLN ***DISPENSED BY RESP. INH SCH (07:12)
[2016-12-08] MEDS: ALBUT/IPRATROP 3MG/0.5MG NEB 3 ML VIAL INH SCH ×4 (07:12→19:57)
[2016-12-08] MEDS: FORMOTEROL FUMA NEBULIZER SOLN 20 MCG/2 ML VIAL INH SCH ×2 (07:12→19:57)
[2016-12-08 07:43] LABS: BASO % 0.3 %; BASO ABS # 0.02 K/uL (0-0.2); COMPLETE YES; EOS % 0.1 %; LYMPH % 18.5 %; LYMPH ABS # 1.42 K/uL (1.2-3.4); MONO % 9.3 %; NEUT % 63.8 %
[2016-12-08] MEDS: BOOST VANILLA PO SCH ×6 (08:00→20:00)
[2016-12-08] MEDS: GUAIFENESIN 600 MG TABCR PO SCH ×2 (09:01→20:55)
[2016-12-08] MEDS: CITALOPRAM 20 MG TAB PO SCH (09:02)
[2016-12-08] MEDS: CYANOCOBALAMIN 500 MCG TAB (VIT B-12) PO SCH (09:03)
[2016-12-08] MEDS: POTASSIUM CHLORIDE 20 MEQ TABCR PO SCH ×2 (09:04→20:57)
[2016-12-08] MEDS: FLUCONAZOLE 100 MG TAB PO SCH (09:04)
[2016-12-08] MEDS: PrednisoLONE ACET 1% OP SUSP 5 ML BTL OPL SCH ×4 (09:05→20:00)
[2016-12-08] MEDS: FUROSEMIDE 20 MG TAB PO SCH (09:05)
[2016-12-08] MEDS: TRIAMCINOLONE ACET NASAL SPRAY 10.8ML BTL NAE SCH (09:06)
[2016-12-08] MEDS: KETOROLAC 0.5% OP SOLN 3 ML BTL OPL SCH ×4 (09:06→20:00)
[2016-12-08] MEDS: TIOTROPIUM BROMIDE 5 PUFF/90 MCG INH INH SCH (09:06)
[2016-12-08] MEDS: MIDODRINE 2.5 MG TAB PO SCH ×3 (09:08→17:12)
[2016-12-08] MEDS: DOCUSATE SODIUM/SENNA 50/8.6MG TAB PO SCH (09:08)
[2016-12-08] MEDS: BENZONATATE 100MG CAP PO SCH ×3 (09:09→20:54)
[2016-12-08] MEDS: PANTOprazole SOD 40 MG TAB PO SCH ×2 (09:09→20:54)
[2016-12-08] MEDS: LIDODERM (LIDOCAINE) PATCH 5% TD SCH (09:10)
[2016-12-08] MEDS: LINEZOLID 600 MG TAB PO SCH ×2 (09:10→20:57)
[2016-12-08] MEDS: GABAPENTIN 300 MG CAP PO SCH (12:48)
[2016-12-08] MEDS ORDERED: NURSING VERBAL MED ORDER ONE (14:45)
--- NOTE | 2016-12-08 14:54 | Hospitalist Progress Note ---
Hospitalist Progress Note Date of Service Dec 08, 2016. Subjective Pt evaluation today including: conversation w/ patient, physical exam, chart review, lab review, review of studies, review of inpatient medication list Patient was seated at bedside this am and was awake and alert. She has no complaints or concerns today. I had spoke with her daughter last evening. We identified that she had no been getting citalopram I thus reordered. She was not approved for [employer] therefore social service is looking into other options. HGB is 10.8 today. Additional Comments: A 10 system review was performed and all were negative. Positives were placed in the subjective section. Objective Vital Signs Date Time Temp Pulse Resp B/P Pulse Ox O2 Delivery O2 Flow Rate FiO2 12/08/16 12:20 94 Nasal Cannula 1.0 12/08/16 11:43 36.5 96 24 149/75 94 Nasal Cannula 1.0 12/08/16 11:12 91 20 96 Nasal Cannula 1.0 12/08/16 09:24 Nasal Cannula 1.0 Humidified Oxygen 12/08/16 07:42 36.8 83 18 143/79 93 Room Air 12/08/16 07:12 79 16 97 Nasal Cannula 1.0 12/08/16 00:00 96 Nasal Cannula 1.0 12/07/16 23:15 36.4 89 18 136/77 96 Nasal Cannula 2.0 12/07/16 19:17 88 16 96 Nasal Cannula 1.0 12/07/16 17:21 128/78 12/07/16 16:00 Nasal Cannula 1.0 12/07/16 15:20 90 14 98 Nasal Cannula 1.0 12/07/16 15:05 36.7 91 14 235/76 96 Nasal Cannula 1.0 Physical Exam Notes: GEN: Awake, alert. Not in acute distress HEENT: Tm's intact, no inflammation, EOMI, PERRLA, MMM Neck: Soft, supple Lungs: trace expiratory wheezes b/l. Heart: REG, nrl S1S2 without murmurs, rubs or gallops Abdomen: Soft, NT, ND, + BS EXT: No C/C trace b/l ankle edema. NEURO: CN's II-XII grossly intact, non-focal Skin: warm, dry, no rashes Laboratory Results Last 24 Hours Test 12/08/16 05:20 White Blood Count 7.67 K/uL Red Blood Count 3.69 M/uL Hemoglobin 10.8 g/dL Hematocrit 32.9 % Mean Corpuscular Volume 89.2 fL Mean Corpuscular Hemoglobin 29.3 pg Mean Corpuscular Hemoglobin Concent 32.8 g/dl Platelet Count 232 K/uL Mean Platelet Volume 9.1 fL Neutrophils (%) (Auto) 63.8 % Lymphocytes (%) (Auto) 18.5 % Monocytes (%) (Auto) 9.3 % Eosinophils (%) (Auto) 0.1 % Basophils (%) (Auto) 0.3 % Neutrophils # (Auto) 4.90 K/uL Lymphocytes # (Auto) 1.42 K/uL Monocytes # (Auto) 0.71 K/uL Eosinophils # (Auto) 0.01 K/uL Basophils # (Auto) 0.02 K/uL RDW Standard Deviation 56.7 fL RDW Coefficient of Variation 17.4 % Immature Granulocyte % (Auto) 8.0 % Immature Granulocyte # (Auto) 0.61 K/uL Nucleated RBC Absolute Count (auto) 0.03 K/uL Nucleated Red Blood Cells % 0.4 % Sodium Level 141 mmol/L Potassium Level 4.2 mmol/L Chloride Level 105 mmol/L Carbon Dioxide Level 30 mmol/L Anion Gap 6.0 mmol/L Blood Urea Nitrogen 30 mg/dl Creatinine 1.00 mg/dl Est Creatinine Clear Calc Drug Dose 48.4 ml/min Estimated GFR () 62.1 Estimated GFR (Non- 53.5 BUN/Creatinine Ratio 30.4 Random Glucose 113 mg/dl Calcium Level 7.7 mg/dl Assessment and Plan 1) MRSA pneumonia - On day #8/14 of Zyvox - now oral dosing. 2) Acute/chronic diastolic CHF - continues to be compensated. 3) Oral thrush - treating with Diflucan. 4) Asthma exacerbation - improving, weaning steroids. 5) UTI - Citrobacter. This treatment was completed. 6) Deconditioning - Looking into placement options. 7) Depression - restarted citalopram. DVT prophylaxis - Lovenox.
[2016-12-08] MEDS: DICLOFENAC SOD 1% GEL 100 GM TUBE EXT SCH (20:54)
[2016-12-08] MEDS: METOPROLOL SUCC 25MG EXT REL TAB PO SCH (20:56)
[2016-12-08] MEDS: ENOXAPARIN 40 MG/0.4 ML SYR SQ SCH (20:57)
[2016-12-09] VITALS (9 sets, daily range): BP systolic 126–144; BP diastolic 74–85; PULSE 79–100; TEMP 36.4–36.8; O2SAT 93–98
[2016-12-09] MEDS: LEVOTHYROXINE 88 MCG TAB PO SCH (06:07)
[2016-12-09 06:36] LABS: HEMATOCRIT 32.9 % (37-47); MEAN CELL VOLUME 90.1 fL (80-100); MEAN CORPUSCULAR HEMOGLOBIN 28.8 pg (25-34); MEAN CORPUSCULAR HGB CONC 31.9 g/dl (32-36); MEAN PLATELET VOLUME 9.3 fL (7.4-10.4); PLATELET COUNT 223 K/uL (130-400); RED BLOOD COUNT 3.65 M/uL (4.2-5.4); WHITE BLOOD COUNT 7.59 K/uL (4.8-10.8)
[2016-12-09 07:00] LABS: BUN/CREATININE RATIO 24.7 (10-20); CALCIUM 8.1 mg/dl (8.5-10.1); CREATININE 1.1 mg/dl (0.60-1.20); POTASSIUM 4.6 mmol/L (3.5-5.1)
[2016-12-09] MEDS: ALBUT/IPRATROP 3MG/0.5MG NEB 3 ML VIAL INH SCH ×4 (07:57→19:50)
[2016-12-09] MEDS: FORMOTEROL FUMA NEBULIZER SOLN 20 MCG/2 ML VIAL INH SCH ×2 (07:57→19:50)
[2016-12-09 08:22] LABS: BASO % 0.3 %; BASO ABS # 0.02 K/uL (0-0.2); COMPLETE YES; EOS % 0.4 %; IG% 5.9 %; LYMPH % 20.4 %; LYMPH ABS # 1.55 K/uL (1.2-3.4); MONO % 7.1 %; NEUT % 65.9 %
[2016-12-09] MEDS: TIOTROPIUM BROMIDE 5 PUFF/90 MCG INH INH SCH (08:25)
[2016-12-09] MEDS: GUAIFENESIN 600 MG TABCR PO SCH ×2 (08:26→21:21)
[2016-12-09] MEDS: TRIAMCINOLONE ACET NASAL SPRAY 10.8ML BTL NAE SCH (08:26)
[2016-12-09] MEDS: KETOROLAC 0.5% OP SOLN 3 ML BTL OPL SCH ×4 (08:26→21:27)
[2016-12-09] MEDS: LINEZOLID 600 MG TAB PO SCH ×2 (08:27→21:23)
[2016-12-09] MEDS: BOOST VANILLA PO SCH ×6 (08:27→20:00)
[2016-12-09] MEDS: PrednisoLONE ACET 1% OP SUSP 5 ML BTL OPL SCH ×4 (08:27→21:27)
[2016-12-09] MEDS: PANTOprazole SOD 40 MG TAB PO SCH ×2 (08:27→21:22)
[2016-12-09] MEDS: DOCUSATE SODIUM/SENNA 50/8.6MG TAB PO SCH (08:28)
[2016-12-09] MEDS: CITALOPRAM 20 MG TAB PO SCH (08:28)
[2016-12-09] MEDS: CYANOCOBALAMIN 500 MCG TAB (VIT B-12) PO SCH (08:28)
[2016-12-09] MEDS: MIDODRINE 2.5 MG TAB PO SCH ×3 (08:30→17:24)
[2016-12-09] MEDS: LIDODERM (LIDOCAINE) PATCH 5% TD SCH (08:30)
[2016-12-09] MEDS: BENZONATATE 100MG CAP PO SCH ×3 (08:30→21:24)
[2016-12-09] MEDS: FUROSEMIDE 20 MG TAB PO SCH (08:31)
[2016-12-09] MEDS: FLUCONAZOLE 100 MG TAB PO SCH (08:32)
[2016-12-09] MEDS: POTASSIUM CHLORIDE 20 MEQ TABCR PO SCH ×2 (08:32→21:24)
[2016-12-09] MEDS: GABAPENTIN 300 MG CAP PO SCH (13:09)
--- NOTE | 2016-12-09 16:12 | Hospitalist Progress Note ---
Hospitalist Progress Note Date of Service Dec 09, 2016. Subjective Pt evaluation today including: conversation w/ patient, physical exam, chart review, lab review, review of studies, review of inpatient medication list Patient being considered for [facility] rehab now. She is stable and without complaints. I do feel she is more talkative today than she has been. HGB is stable in the mid 10 range. Additional Comments: A 10 system review was performed and all were negative. Positives were placed in the subjective section. Objective Vital Signs Date Time Temp Pulse Resp B/P Pulse Ox O2 Delivery O2 Flow Rate FiO2 12/09/16 15:42 36.8 100 18 126/75 97 Room Air 12/09/16 15:19 83 16 96 Room Air 12/09/16 11:16 86 16 98 Nasal Cannula 1.0 12/09/16 08:00 Nasal Cannula 1.0 12/09/16 07:57 79 16 96 Nasal Cannula 1.0 12/09/16 07:32 36.6 83 18 144/81 97 Nasal Cannula 1.0 12/09/16 00:00 95 Room Air 12/08/16 23:20 36.6 84 16 138/79 96 Nasal Cannula 1.0 12/08/16 20:00 95 Room Air 12/08/16 19:58 82 16 96 Room Air Physical Exam Notes: GEN: Awake, alert.. Not in acute distress HEENT: Tm's intact, no inflammation, EOMI, PERRLA, MMM Neck: Soft, supple Lungs: CTA b/l, no r/r/w Heart: REG, nrl S1S2 without murmurs, rubs or gallops Abdomen: Soft, NT, ND, + BS EXT: No C/C trace b/l ankle edema. NEURO: CN's II-XII grossly intact, non-focal Skin: warm, dry, no rashes PSYCH: pleasant, more conversant today Laboratory Results Last 24 Hours Test 12/09/16 05:59 White Blood Count 7.59 K/uL Red Blood Count 3.65 M/uL Hemoglobin 10.5 g/dL Hematocrit 32.9 % Mean Corpuscular Volume 90.1 fL Mean Corpuscular Hemoglobin 28.8 pg Mean Corpuscular Hemoglobin Concent 31.9 g/dl Platelet Count 223 K/uL Mean Platelet Volume 9.3 fL Neutrophils (%) (Auto) 65.9 % Lymphocytes (%) (Auto) 20.4 % Monocytes (%) (Auto) 7.1 % Eosinophils (%) (Auto) 0.4 % Basophils (%) (Auto) 0.3 % Neutrophils # (Auto) 5.00 K/uL Lymphocytes # (Auto) 1.55 K/uL Monocytes # (Auto) 0.54 K/uL Eosinophils # (Auto) 0.03 K/uL Basophils # (Auto) 0.02 K/uL RDW Standard Deviation 59.2 fL RDW Coefficient of Variation 18.0 % Immature Granulocyte % (Auto) 5.9 % Immature Granulocyte # (Auto) 0.45 K/uL Nucleated RBC Absolute Count (auto) 0.05 K/uL Nucleated Red Blood Cells % 0.6 % Sodium Level 141 mmol/L Potassium Level 4.6 mmol/L Chloride Level 105 mmol/L Carbon Dioxide Level 29 mmol/L Anion Gap 7.0 mmol/L Blood Urea Nitrogen 27 mg/dl Creatinine 1.10 mg/dl Est Creatinine Clear Calc Drug Dose 44.3 ml/min Estimated GFR () 55.3 Estimated GFR (Non- 47.7 BUN/Creatinine Ratio 24.7 Random Glucose 97 mg/dl Calcium Level 8.1 mg/dl Assessment and Plan 1) MRSA pneumonia - On day #8/14 of Zyvox - oral dosing. 2) Acute/chronic diastolic CHF - continues to be compensated. 3) Oral thrush - treating with Diflucan I can likely D/C this in 1-2 days. 4) Asthma exacerbation - improving, weaning steroids. 5) UTI - Citrobacter. This treatment was completed. 6) Deconditioning - Considering [facility] 7) Depression - citalopram. DVT prophylaxis - Lovenox.
[2016-12-09] MEDS: DICLOFENAC SOD 1% GEL 100 GM TUBE EXT SCH (21:21)
[2016-12-09] MEDS: ENOXAPARIN 40 MG/0.4 ML SYR SQ SCH (21:23)
[2016-12-09] MEDS: METOPROLOL SUCC 25MG EXT REL TAB PO SCH (21:26)
[2016-12-10] VITALS (8 sets, daily range): BP systolic 122–136; BP diastolic 75–78; PULSE 81–104; TEMP 36.6; O2SAT 93–96
[2016-12-10] MEDS: LEVOTHYROXINE 88 MCG TAB PO SCH (06:14)
[2016-12-10] MEDS: ALBUT/IPRATROP 3MG/0.5MG NEB 3 ML VIAL INH SCH ×4 (07:15→19:43)
[2016-12-10] MEDS: FORMOTEROL FUMA NEBULIZER SOLN 20 MCG/2 ML VIAL INH SCH ×2 (07:16→19:45)
[2016-12-10] MEDS: DOCUSATE SODIUM/SENNA 50/8.6MG TAB PO SCH (08:31)
[2016-12-10] MEDS: CITALOPRAM 20 MG TAB PO SCH (08:32)
[2016-12-10] MEDS: GUAIFENESIN 600 MG TABCR PO SCH ×2 (08:32→20:17)
[2016-12-10] MEDS: PANTOprazole SOD 40 MG TAB PO SCH ×2 (08:32→20:19)
[2016-12-10] MEDS: CYANOCOBALAMIN 500 MCG TAB (VIT B-12) PO SCH (08:32)
[2016-12-10] MEDS: FUROSEMIDE 20 MG TAB PO SCH (08:33)
[2016-12-10] MEDS: LINEZOLID 600 MG TAB PO SCH ×2 (08:33→20:19)
[2016-12-10] MEDS: BENZONATATE 100MG CAP PO SCH ×3 (08:34→20:16)
[2016-12-10] MEDS: FLUCONAZOLE 100 MG TAB PO SCH (08:34)
[2016-12-10] MEDS: BOOST VANILLA PO SCH ×6 (08:35→20:16)
[2016-12-10] MEDS: TIOTROPIUM BROMIDE 5 PUFF/90 MCG INH INH SCH (08:35)
[2016-12-10] MEDS: TRIAMCINOLONE ACET NASAL SPRAY 10.8ML BTL NAE SCH (08:35)
[2016-12-10] MEDS: POTASSIUM CHLORIDE 20 MEQ TABCR PO SCH ×2 (08:35→20:18)
[2016-12-10] MEDS: KETOROLAC 0.5% OP SOLN 3 ML BTL OPL SCH ×4 (08:36→20:15)
[2016-12-10] MEDS: MIDODRINE 2.5 MG TAB PO SCH ×3 (08:36→16:32)
[2016-12-10] MEDS: PrednisoLONE ACET 1% OP SUSP 5 ML BTL OPL SCH ×4 (08:36→20:16)
[2016-12-10] MEDS: LIDODERM (LIDOCAINE) PATCH 5% TD SCH (08:37)
--- NOTE | 2016-12-10 10:44 | Hospitalist Progress Note ---
Hospitalist Progress Note Date of Service Dec 10, 2016. Subjective Pt evaluation today including: conversation w/ patient, physical exam, chart review, lab review, review of studies, review of inpatient medication list As of yesterday afternoon, the patient has been in this hospital 1 month. She is complaining of headache today. She ate breakfast. Otherwise no complaints. She tells me that she really, really wants out of the hospital. I sympathize with her. Additional Comments: A 10 system review was performed and all were negative. Positives were placed in the subjective section. Objective Vital Signs Date Time Temp Pulse Resp B/P Pulse Ox O2 Delivery O2 Flow Rate FiO2 12/10/16 08:30 Room Air 12/10/16 07:42 36.6 81 18 126/78 95 Room Air 12/10/16 07:15 88 16 96 Room Air 12/09/16 23:59 Room Air 12/09/16 23:21 36.4 100 16 142/85 93 Room Air 12/09/16 21:45 98 137/74 12/09/16 20:00 Room Air 12/09/16 19:53 82 16 95 Room Air 12/09/16 15:42 36.8 100 18 126/75 97 Room Air 12/09/16 15:19 83 16 96 Room Air 12/09/16 11:16 86 16 98 Nasal Cannula 1.0 Physical Exam Notes: GEN: Awake, alert. Not in acute distress. HEENT: Tm's intact, no inflammation, EOMI, PERRLA, MMM Neck: Soft, supple Lungs: CTA b/l, no r/r/w Heart: REG, nrl S1S2 without murmurs, rubs or gallops Abdomen: Soft, NT, ND, + BS EXT: No C/C trace ankle edema. NEURO: CN's II-XII grossly intact, non-focal Skin: warm, dry, no rashes PSYCH: pleasant, cooperative. Assessment and Plan 1) MRSA pneumonia - On day #9/14 of Zyvox - oral dosing. 2) Acute/chronic diastolic CHF - continues to be compensated. 3) Oral thrush - treating with Diflucan D/C today. 4) Asthma exacerbation - improving, weaning steroids. 5) UTI - Citrobacter. This treatment was completed. 6) Deconditioning - Considering [facility] 7) Depression - citalopram. DVT prophylaxis - Lovenox.
[2016-12-10] MEDS: GABAPENTIN 300 MG CAP PO SCH (11:41)
[2016-12-10] MEDS: METOPROLOL SUCC 25MG EXT REL TAB PO SCH (20:18)
[2016-12-10] MEDS: ENOXAPARIN 40 MG/0.4 ML SYR SQ SCH (20:19)
[2016-12-10] MEDS: DICLOFENAC SOD 1% GEL 100 GM TUBE EXT SCH (20:21)
[2016-12-11] VITALS (9 sets, daily range): BP systolic 127–154; BP diastolic 75–84; PULSE 78–103; TEMP 36.5–37; O2SAT 95–98
[2016-12-11] MEDS: LEVOTHYROXINE 88 MCG TAB PO SCH (06:07)
[2016-12-11] MEDS: FORMOTEROL FUMA NEBULIZER SOLN 20 MCG/2 ML VIAL INH SCH ×2 (07:12→19:30)
[2016-12-11] MEDS: ALBUT/IPRATROP 3MG/0.5MG NEB 3 ML VIAL INH SCH ×2 (07:12→11:13)
[2016-12-11] MEDS: MIDODRINE 2.5 MG TAB PO SCH ×3 (08:00→16:18)
[2016-12-11] MEDS: TRIAMCINOLONE ACET NASAL SPRAY 10.8ML BTL NAE SCH (08:01)
[2016-12-11] MEDS: KETOROLAC 0.5% OP SOLN 3 ML BTL OPL SCH ×2 (08:01→11:51)
[2016-12-11] MEDS: CYANOCOBALAMIN 500 MCG TAB (VIT B-12) PO SCH (08:01)
[2016-12-11] MEDS: CITALOPRAM 20 MG TAB PO SCH (08:01)
[2016-12-11] MEDS: PrednisoLONE ACET 1% OP SUSP 5 ML BTL OPL SCH ×2 (08:01→11:51)
[2016-12-11] MEDS: PANTOprazole SOD 40 MG TAB PO SCH (08:02)
[2016-12-11] MEDS: LINEZOLID 600 MG TAB PO SCH ×2 (08:02→20:32)
[2016-12-11] MEDS: POTASSIUM CHLORIDE 20 MEQ TABCR PO SCH (08:02)
[2016-12-11] MEDS: GUAIFENESIN 600 MG TABCR PO SCH ×2 (08:03→20:31)
[2016-12-11] MEDS: FLUCONAZOLE 100 MG TAB PO SCH (08:03)
[2016-12-11] MEDS: DOCUSATE SODIUM/SENNA 50/8.6MG TAB PO SCH (08:03)
[2016-12-11] MEDS: TIOTROPIUM BROMIDE 5 PUFF/90 MCG INH INH SCH (08:04)
[2016-12-11] MEDS: FUROSEMIDE 20 MG TAB PO SCH (08:04)
[2016-12-11] MEDS: BOOST VANILLA PO SCH ×6 (08:04→20:29)
[2016-12-11] MEDS: LIDODERM (LIDOCAINE) PATCH 5% TD SCH (08:05)
[2016-12-11] MEDS: BENZONATATE 100MG CAP PO SCH ×3 (08:05→20:30)
[2016-12-11] MEDS: GABAPENTIN 300 MG CAP PO SCH (11:51)
--- NOTE | 2016-12-11 17:51 | Hospitalist Progress Note ---
Hospitalist Progress Note Date of Service Dec 11, 2016. Subjective Pt evaluation today including: conversation w/ patient, physical exam, chart review, lab review, review of studies, review of inpatient medication list Patient stable. No new issues noted. Additional Comments: A 10 system review was performed and all were negative. Positives were placed in the subjective section. Objective Vital Signs Date Time Temp Pulse Resp B/P Pulse Ox O2 Delivery O2 Flow Rate FiO2 12/11/16 15:14 Room Air 12/11/16 15:10 94 20 98 Room Air 12/11/16 15:04 37.0 100 20 131/75 95 Room Air 12/11/16 11:54 103 130/79 12/11/16 11:15 96 20 96 Room Air 12/11/16 08:00 Room Air 12/11/16 07:12 78 16 95 Room Air 12/11/16 07:01 36.6 83 18 154/84 96 Room Air 12/10/16 23:59 Room Air 12/10/16 23:46 36.6 98 18 127/75 95 Room Air 12/10/16 20:26 104 136/75 96 Room Air 12/10/16 20:00 Room Air 12/10/16 19:45 88 16 96 Room Air Physical Exam Notes: GEN: Awake, alert. Not in acute distress HEENT: EOMI, PERRLA, MMM Neck: Soft, supple Lungs: CTA b/l, no r/r/w Heart: REG, nrl S1S2 without murmurs, rubs or gallops Abdomen: Soft, NT, ND, + BS EXT: No C/C/E NEURO: CN's II-XII grossly intact, non-focal Skin: warm, dry, no rashes PSYCH: pleasant. Assessment and Plan 1) MRSA pneumonia - On day #10/14 of Zyvox - oral dosing. 2) Acute/chronic diastolic CHF - continues to be compensated. 3) Oral thrush - completed treatment with Diflucan. 4) Asthma exacerbation - improving, weaning steroids - lower dose today. 5) UTI - Citrobacter. This treatment was completed. 6) Deconditioning - Considering [facility] 7) Depression - citalopram. DVT prophylaxis - Lovenox.
[2016-12-11] MEDS: ENOXAPARIN 40 MG/0.4 ML SYR SQ SCH (20:29)
[2016-12-11] MEDS: DICLOFENAC SOD 1% GEL 100 GM TUBE EXT SCH (20:30)
[2016-12-11] MEDS: METOPROLOL SUCC 25MG EXT REL TAB PO SCH (20:32)
[2016-12-12] VITALS (7 sets, daily range): BP systolic 114–154; BP diastolic 76–84; PULSE 80–95; TEMP 36.4–36.7; O2SAT 94–99
[2016-12-12] MEDS: FORMOTEROL FUMA NEBULIZER SOLN 20 MCG/2 ML VIAL INH SCH ×2 (07:21→20:00)
[2016-12-12] MEDS: GUAIFENESIN 600 MG TABCR PO SCH ×2 (08:45→21:31)
[2016-12-12] MEDS: CITALOPRAM 20 MG TAB PO SCH (08:46)
[2016-12-12] MEDS: MIDODRINE 2.5 MG TAB PO SCH ×3 (08:47→16:48)
[2016-12-12] MEDS: LINEZOLID 600 MG TAB PO SCH ×2 (08:47→21:32)
[2016-12-12] MEDS: DOCUSATE SODIUM/SENNA 50/8.6MG TAB PO SCH (08:47)
[2016-12-12] MEDS: BENZONATATE 100MG CAP PO SCH ×3 (08:48→21:32)
[2016-12-12] MEDS: TRIAMCINOLONE ACET NASAL SPRAY 10.8ML BTL NAE SCH (08:48)
[2016-12-12] MEDS: FUROSEMIDE 20 MG TAB PO SCH (08:48)
[2016-12-12] MEDS: BOOST VANILLA PO SCH ×6 (08:49→20:00)
[2016-12-12] MEDS: LIDODERM (LIDOCAINE) PATCH 5% TD SCH (08:50)
--- NOTE | 2016-12-12 16:29 | Pulmonology Progress Note ---
Pulmonary Progress Note Date of Service Dec 12, 2016. Attending Dr. Sandoval Subjective Denies any pain today. Cough continues - no better or worse. Appetite is in- tact. Ambulating the hallways (yesterday) with UMANA. Objective 81-yo female admitted to [facility] 11/11/16 with progressive dyspnea and hypoxia. CTA 11/14/16: small right pleural effusion, RML and bilateral lower lob opacities, stable 4mm pulmonary nodule - no PE. Hospital course notable for treatment of Citrobacter freundii complex urinary pathogen and generalized deconditioning. Bronchoscopy 11/28/16 + BAL MRSA pneumonia/bronchiectasis. Swallow evaluation: negative for aspiration. She was treated with mucolytics, antibiotic (current linezolid), bronchodilators, bowel regimen and steroid with very slow clinical improvement. Today: - 96-98% RA - Afebrile, hypertensive - No new labs - Prednisone: 30mg - Linezolid: day # 12/14 - Spirometer: 250 x 5 effort Physical Exam: Constitutional: Elderly chronically ill appearing female sitting in chair at bedside chair. No acute distress. HEENT: + facial symmetry. EOMi, PERRLA, moist mucous membranes. Respiratory: Shallow respirations without accessory muscle use during conversation. No cough. Reduced breath sounds with coarse crackles right lateral lung field. No cough or wheeze. Cardiovascular: RRR with distant heart sounds. Warm and perfused peripherally. GI: Abdomen soft, protuberant. Active bowel sounds MSK/Extremities: moving symmetrically. No peripheral edema. Generalized weakness Neurologic: Alert, oriented, cooperative and able to follow complex commands. Psychiatric: Flat affect. Assessment & Plan 81-year-old female with progressive respiratory insufficiency and MRSA + on BAL complicated by physical deconditioning and poor spirometry 1. Spiriva and PRN duo-nebs 2. PT/OT and encouraged bedside spirometry 3. Will need significant rehab outpatient and psychiatric consideration- planning in place 4. Continue slow steroid taper given the length of of her hospital stay and previous high doses: Decrease by 5mg Q 3 days and hold 10mg until follow-up with pulmonary Data Medications: Current Inpatient Medications Medications (Trade) Dose Ordered Sig/Natasha Route Start Time Stop Time Status Last Admin Dose Admin Enoxaparin Sodium (Lovenox Inj) 40 mg Q24H SQ 11/11/16 20:00 01/09/17 19:59 12/11/16 20:29 40 MG Diclofenac Sodium (Voltaren 1% Top Gel) 1 appln HS EXT 11/16/16 22:00 12/16/16 21:59 12/11/16 20:30 1 APPLN Benzonatate (Tessalon Perles Cap) 100 mg TID PO 11/17/16 08:00 12/17/16 07:59 12/12/16 14:13 100 MG Enteral Nutritional Formula (Boost) 1 can TID PO 11/17/16 14:00 12/17/16 13:59 12/12/16 14:14 1 CAN Ibuprofen (Advil Tab) 400 mg QID PRN PO 11/17/16 14:30 12/17/16 14:29 12/03/16 11:12 400 MG Miscellaneous (Remove Lidoderm Patch) 1 ea DAILY@21 N/A 11/19/16 21:00 12/29/16 20:59 12/11/16 20:49 1 EA Midodrine (Proamatine Tab) 2.5 mg TID@ PO 11/20/16 17:00 12/20/16 16:59 12/12/16 12:22 2.5 MG Guaifenesin (Mucinex Contr Rel Tab) 1,200 mg BID PO 11/21/16 20:00 12/21/16 19:59 12/12/16 08:45 1,200 MG Formoterol Fumarate (Perforomist 20MCG/2ML Neb Soln) 20 mcg BIDR INH 11/21/16 20:00 12/21/16 19:59 12/12/16 07:21 20 MCG Diphenoxylate HCl/ Atropine (Lomotil Tab) 1 tab Q6 PRN PO 11/23/16 16:00 12/23/16 15:59 11/23/16 16:50 1 TAB Furosemide (Lasix Tab) 20 mg QAM PO 11/24/16 08:00 12/24/16 07:59 Future hold 12/12/16 08:48 20 MG Senna/Docusate Sodium (Senokot S Tab) 1 tab QAM PO 11/26/16 08:30 12/26/16 08:29 12/12/16 08:47 1 TAB Lidocaine (Lidoderm Patch 5%) 2 patch QAM TD 11/30/16 08:00 12/30/16 07:59 12/12/16 08:50 2 PATCH Triamcinolone Acetonide (Nasacort Allergy 24hr) 2 sprays DAILY LATASHA 11/29/16 12:30 12/29/16 12:29 12/12/16 08:48 2 SPRAYS Linezolid (Zyvox Tab) 600 mg BID PO 12/01/16 10:15 12/14/16 23:59 12/12/16 08:47 600 MG Lorazepam (Ativan Tab) 0.5 mg Q6H PRN PO 12/01/16 23:45 12/31/16 23:44 12/03/16 00:40 0.5 MG Metoprolol Succinate (Toprol Xl Tab) 12.5 mg QPM PO 12/06/16 21:00 01/05/17 20:59 12/11/16 20:32 12.5 MG Linaclotide (Linzess) 290 mcg DAILY PRN PO 12/06/16 10:00 01/05/17 09:59 Prednisone (PredniSONE TAB) 30 mg DAILY PO 12/08/16 08:00 01/07/17 07:59 12/12/16 08:47 30 MG Citalopram Hydrobromide (celeXA TAB) 30 mg QAM PO 12/08/16 08:00 01/07/17 07:59 12/12/16 08:46 30 MG I & O: 24-Hour Column 12/12/16 07:59 Intake Total 420 ml Output Total 400 ml Balance 20 ml Vital Signs: Date Time Temp Pulse Resp B/P Pulse Ox O2 Delivery O2 Flow Rate FiO2 12/12/16 15:01 36.5 95 18 114/81 94 Room Air 12/12/16 12:21 93 126/76 12/12/16 08:30 Room Air 12/12/16 07:21 80 20 98 Room Air 12/12/16 07:10 36.4 80 16 154/82 96 Room Air 12/11/16 23:59 Room Air 12/11/16 23:54 36.5 88 18 146/79 97 Room Air 12/11/16 20:45 96 99 127/75 Room Air 12/11/16 20:00 Room Air 12/11/16 19:31 96 20 98 Room Air
[2016-12-12] MEDS: IBUPROFEN 200 MG TAB PO PRN ×2 (16:43→21:38)
--- NOTE | 2016-12-12 18:07 | Hospitalist Progress Note ---
Hospitalist Progress Note Date of Service Dec 12, 2016. Subjective Pt evaluation today including: conversation w/ patient, physical exam, chart review, lab review, review of studies, review of inpatient medication list Patient feels the same daily. I saw her earlier today. This afternoon, nursing noted the patient to have increased respirations with course sounds. I ordered a CXR and will check labs in the am. Additional Comments: A 10 system review was performed and all were negative. Positives were placed in the subjective section. Objective Vital Signs Date Time Temp Pulse Resp B/P Pulse Ox O2 Delivery O2 Flow Rate FiO2 12/12/16 16:45 141/84 12/12/16 16:10 Room Air 12/12/16 15:01 36.5 95 18 114/81 94 Room Air 12/12/16 12:21 93 126/76 12/12/16 08:30 Room Air 12/12/16 07:21 80 20 98 Room Air 12/12/16 07:10 36.4 80 16 154/82 96 Room Air 12/11/16 23:59 Room Air 12/11/16 23:54 36.5 88 18 146/79 97 Room Air 12/11/16 20:45 96 99 127/75 Room Air 12/11/16 20:00 Room Air 12/11/16 19:31 96 20 98 Room Air Physical Exam Notes: GEN: Awake, alert. Not in acute distress HEENT: EOMI, PERRLA, MMM Neck: Soft, supple Lungs: CTA b/l, no r/r/w Heart: REG, nrl S1S2 without murmurs, rubs or gallops Abdomen: Soft, NT, ND, + BS EXT: No C/C + trace b/l ankle edema. NEURO: CN's II-XII grossly intact, non-focal Skin: warm, dry, no rashes PSYCH: pleasant, cooperative. Assessment and Plan 1) MRSA pneumonia - On day #11/14 of Zyvox - oral dosing. 2) Acute/chronic diastolic CHF - continues to be compensated. 3) Oral thrush - completed treatment with Diflucan. 4) Asthma exacerbation - improving, weaning steroids - lower dose today. 5) UTI - Citrobacter. This treatment was completed. 6) Deconditioning - Considering [facility] 7) Depression - citalopram. DVT prophylaxis - Lovenox.
[2016-12-12] MEDS ORDERED: METHYLPREDNISOLONE IV 80 MG in SYRINGE 0 ML IV ONE (18:15)
[2016-12-12] MEDS: DICLOFENAC SOD 1% GEL 100 GM TUBE EXT SCH (21:33)
[2016-12-12] MEDS: ENOXAPARIN 40 MG/0.4 ML SYR SQ SCH (21:35)
[2016-12-12] MEDS: METOPROLOL SUCC 25MG EXT REL TAB PO SCH (21:36)
--- NOTE | 2016-12-12 22:21 | DIAGNOSTIC IMAGING REPORT ---
CHEST 2 VIEWS ROUTINE CLINICAL HISTORY: SOB, treating for MRSA pneumonia. Dyspnea COMPARISON STUDY: 12/06/2016 FINDINGS: Small bilateral pleural effusions. Improving left basilar infiltrate with minimal residual. Platelike atelectasis both lung bases. IMPRESSION: Slightly improved exam with improving left basilar infiltrative change. Small right effusion stable. Electronically signed by: Vignesh Kim M.D. 12/12/2016 10:20 PM Dictated Date/Time: 12/12/2016 10:19 PM
[2016-12-12] MEDS: LORAZEPAM 0.5 MG TAB PO PRN (23:21)
[2016-12-13] VITALS (8 sets, daily range): BP systolic 139–165; BP diastolic 76–84; PULSE 75–104; TEMP 36.4–36.9; O2SAT 84–97
[2016-12-13 06:44] LABS: COMPLETE YES; HEMATOCRIT 33.4 % (37-47); IG% 1.7 %; LYMPH % 11.7 %; LYMPH ABS # 0.82 K/uL (1.2-3.4); MEAN CELL VOLUME 89.5 fL (80-100); MEAN CORPUSCULAR HEMOGLOBIN 29.8 pg (25-34); MEAN CORPUSCULAR HGB CONC 33.2 g/dl (32-36); MEAN PLATELET VOLUME 9.4 fL (7.4-10.4); NEUT % 82.6 %; PLATELET COUNT 184 K/uL (130-400); RED BLOOD COUNT 3.73 M/uL (4.2-5.4)
[2016-12-13] MEDS: FORMOTEROL FUMA NEBULIZER SOLN 20 MCG/2 ML VIAL INH SCH ×2 (07:11→19:32)
[2016-12-13 07:13] LABS: BUN/CREATININE RATIO 27.4 (10-20); CALCIUM 8.3 mg/dl (8.5-10.1); CREATININE 0.94 mg/dl (0.60-1.20)
[2016-12-13] MEDS: MIDODRINE 2.5 MG TAB PO SCH ×3 (08:00→16:41)
[2016-12-13] MEDS: BOOST VANILLA PO SCH ×6 (09:00→19:39)
[2016-12-13] MEDS: TRIAMCINOLONE ACET NASAL SPRAY 10.8ML BTL NAE SCH (09:14)
[2016-12-13] MEDS: CITALOPRAM 20 MG TAB PO SCH (09:15)
[2016-12-13] MEDS: FUROSEMIDE 20 MG TAB PO SCH (09:17)
[2016-12-13] MEDS: GUAIFENESIN 600 MG TABCR PO SCH ×2 (09:18→19:41)
[2016-12-13] MEDS: DOCUSATE SODIUM/SENNA 50/8.6MG TAB PO SCH (09:21)
[2016-12-13] MEDS: BENZONATATE 100MG CAP PO SCH ×3 (09:22→19:41)
[2016-12-13] MEDS: LINEZOLID 600 MG TAB PO SCH ×2 (09:23→19:41)
[2016-12-13] MEDS: LIDODERM (LIDOCAINE) PATCH 5% TD SCH (09:24)
[2016-12-13] MEDS: IBUPROFEN 200 MG TAB PO PRN (17:22)
[2016-12-13] MEDS: ENOXAPARIN 40 MG/0.4 ML SYR SQ SCH (19:42)
[2016-12-13] MEDS: DICLOFENAC SOD 1% GEL 100 GM TUBE EXT SCH (20:25)
[2016-12-13] MEDS: METOPROLOL SUCC 25MG EXT REL TAB PO SCH (20:25)
--- NOTE | 2016-12-13 23:25 | Progress Note ---
Subjective Date of Service: Dec 13, 2016. 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) Pain: denies PO Intake: normal Voiding: no voiding problems c/o weakness, fatigue, and mild dyspnea on exertion but cough markedly improved ; denies wheezing or dyspnea at rest still agreeable to rehab therapy notes reviewed - only walking <25 feet with use of walker and needing frequent breaks due to fatigue/dyspnea Problem List Medical Problems: (1) Cervical strain Status: Acute (2) Fall Status: Acute (3) Head injury Status: Acute (4) Head injury Status: Acute (5) Hip pain Status: Acute (6) Hypoxia Status: Acute (7) Pneumonia Status: Acute (8) Syncope Status: Acute (9) Traumatic compression fracture of third thoracic vertebra Status: Acute Review of Systems Constitutional: No chills, No fever Respiratory: No cough, No shortness of breath, No wheezing Cardiac: No chest pain, No orthopnea Abdomen: No constipation, No diarrhea, No pain Objective Vital Signs Date Time Temp Pulse Resp B/P Pulse Ox O2 Delivery O2 Flow Rate FiO2 12/13/16 19:32 75 20 95 Room Air 12/13/16 16:00 Room Air 12/13/16 15:30 36.9 92 20 139/78 96 Room Air 12/13/16 11:53 157/84 12/13/16 09:38 104 84 12/13/16 08:39 96 Room Air 12/13/16 08:20 Room Air 12/13/16 07:50 36.4 88 15 165/76 94 Nasal Cannula 0.5 12/13/16 07:11 89 20 94 Nasal Cannula 0.5 12/13/16 00:00 97 Room Air Humidified Oxygen 12/12/16 23:30 36.7 84 18 138/84 96 Nasal Cannula 0.5 Humidified Oxygen Physical Exam General Appearance: no apparent distress ENT: pharynx normal Neck: no JVD Respiratory/Chest: lungs clear, no respiratory distress, no accessory muscle use Cardiovascular: regular rate, rhythm, no gallop, no murmur Abdomen: normal bowel sounds, non tender, soft, no organomegaly Extremities: no pedal edema Neurologic/Psychiatric: alert, + depressed affect Laboratory Results Last 24 Hours Test 12/13/16 06:00 White Blood Count 7.00 K/uL Red Blood Count 3.73 M/uL Hemoglobin 11.1 g/dL Hematocrit 33.4 % Mean Corpuscular Volume 89.5 fL Mean Corpuscular Hemoglobin 29.8 pg Mean Corpuscular Hemoglobin Concent 33.2 g/dl Platelet Count 184 K/uL Mean Platelet Volume 9.4 fL Neutrophils (%) (Auto) 82.6 % Lymphocytes (%) (Auto) 11.7 % Monocytes (%) (Auto) 4.0 % Eosinophils (%) (Auto) 0.0 % Basophils (%) (Auto) 0.0 % Neutrophils # (Auto) 5.78 K/uL Lymphocytes # (Auto) 0.82 K/uL Monocytes # (Auto) 0.28 K/uL Eosinophils # (Auto) 0.00 K/uL Basophils # (Auto) 0.00 K/uL RDW Standard Deviation 58.2 fL RDW Coefficient of Variation 18.0 % Immature Granulocyte % (Auto) 1.7 % Immature Granulocyte # (Auto) 0.12 K/uL Nucleated RBC Absolute Count (auto) 0.03 K/uL Nucleated Red Blood Cells % 0.4 % Sodium Level 139 mmol/L Potassium Level 4.0 mmol/L Chloride Level 103 mmol/L Carbon Dioxide Level 24 mmol/L Anion Gap 12.0 mmol/L Blood Urea Nitrogen 26 mg/dl Creatinine 0.94 mg/dl Est Creatinine Clear Calc Drug Dose 51.0 ml/min Estimated GFR () 66.9 Estimated GFR (Non- 57.7 BUN/Creatinine Ratio 27.4 Random Glucose 141 mg/dl Calcium Level 8.3 mg/dl Assessment and Plan 81yo female with: 1. acute hypoxic respiratory failure -2nd to MRSA bronchitis/pneumonia - resolved. Day #13/14 zyvox. 2. acute/chronic diastolic CHF - compensated. 3. MRSA pneumonia - resolved clinically. Day #13/14 of zyvox. 4. asthma with exacerbation - resolved. Weaning prednisone by 5mg every 3 days. Will wean to 10mg then hold at this dose until outpatient f/u. 5. thrush - nystatin solution qid. Resolved. 6. abdominal distension - resolved. 7. DVT proph - lovenox once daily. 8. CKD stage 3 - creatinine stable. 9. citrobacter UTI - resolved. 10. deconditioning - severe - patient agreeable to rehab. Acute inpatient rehab denied by her insurance despite completing peer to peer. Reason - does not need intensive medical therapies nor intensive rehab per the reviewer. SNF still being pursued; social work aware of such. PT, OT BOTH RECOMMENDING REHAB. 11. GI proph - PPI. dispo - SNF? Continued [facility] stay due to: ambulation difficulties Discharge planning: other (rehab)
[2016-12-14] VITALS (8 sets, daily range): BP systolic 118–168; BP diastolic 69–85; PULSE 74–91; TEMP 36.7–37; O2SAT 94–97
[2016-12-14] MEDS: FORMOTEROL FUMA NEBULIZER SOLN 20 MCG/2 ML VIAL INH SCH ×2 (07:25→19:15)
[2016-12-14] MEDS: BOOST VANILLA PO SCH ×6 (08:00→20:00)
[2016-12-14] MEDS: TRIAMCINOLONE ACET NASAL SPRAY 10.8ML BTL NAE SCH (09:08)
[2016-12-14] MEDS: DOCUSATE SODIUM/SENNA 50/8.6MG TAB PO SCH (09:10)
[2016-12-14] MEDS: GUAIFENESIN 600 MG TABCR PO SCH ×2 (09:11→20:59)
[2016-12-14] MEDS: CITALOPRAM 20 MG TAB PO SCH (09:12)
[2016-12-14] MEDS: FUROSEMIDE 20 MG TAB PO SCH (09:14)
[2016-12-14] MEDS: MIDODRINE 2.5 MG TAB PO SCH ×3 (09:14→18:22)
[2016-12-14] MEDS: BENZONATATE 100MG CAP PO SCH ×3 (09:20→20:58)
[2016-12-14] MEDS: LINEZOLID 600 MG TAB PO SCH ×2 (09:21→20:59)
[2016-12-14] MEDS: LIDODERM (LIDOCAINE) PATCH 5% TD SCH (09:22)
[2016-12-14] MEDS: IBUPROFEN 200 MG TAB PO PRN ×2 (18:21→22:03)
[2016-12-14] MEDS: ENOXAPARIN 40 MG/0.4 ML SYR SQ SCH (21:00)
[2016-12-14] MEDS: DICLOFENAC SOD 1% GEL 100 GM TUBE EXT SCH (21:01)
[2016-12-14] MEDS: METOPROLOL SUCC 25MG EXT REL TAB PO SCH (21:05)
--- NOTE | 2016-12-15 06:08 | Progress Note ---
Subjective Date of Service: late entry for visit Dec 14, 2016. Subjective Pt evaluation today including: conversation w/ patient, physical exam, chart review, lab review Pain: denies PO Intake: normal no issues overnight frustrated that she has not left the hospital still willing to go to rehab denies depression but feels trapped in her hospital room Problem List Medical Problems: (1) Cervical strain Status: Acute (2) Fall Status: Acute (3) Head injury Status: Acute (4) Head injury Status: Acute (5) Hip pain Status: Acute (6) Hypoxia Status: Acute (7) Pneumonia Status: Acute (8) Syncope Status: Acute (9) Traumatic compression fracture of third thoracic vertebra Status: Acute Review of Systems Constitutional: No fever Respiratory: + dyspnea on exertion, No cough, No shortness of breath, No sputum , No wheezing Cardiac: No chest pain, No orthopnea Abdomen: No pain Objective Vital Signs Date Time Temp Pulse Resp B/P Pulse Ox O2 Delivery O2 Flow Rate FiO2 12/15/16 02:07 Room Air 12/14/16 23:51 36.7 79 20 134/85 95 Room Air 12/14/16 19:15 83 18 97 Room Air 12/14/16 16:00 97 Room Air 12/14/16 15:36 37.0 90 16 125/77 97 12/14/16 11:41 91 130/77 12/14/16 08:45 Room Air 12/14/16 07:49 37.0 83 16 168/84 95 158/85 12/14/16 07:25 83 18 95 Room Air Physical Exam General Appearance: no apparent distress, + pertinent finding (looks depressed) ENT: pharynx normal Neck: no JVD Respiratory/Chest: no respiratory distress, no accessory muscle use, + rales ( scant, bases) Cardiovascular: regular rate, rhythm, no gallop, no murmur Abdomen: normal bowel sounds, non tender, soft, no organomegaly Extremities: non-tender, no pedal edema Neurologic/Psychiatric: alert, oriented x 3, + depressed affect Assessment and Plan 81yo female with: 1. acute hypoxic respiratory failure -2nd to MRSA bronchitis/pneumonia - resolved. Day #14/ zyvox. 2. acute/chronic diastolic CHF - compensated. 3. MRSA pneumonia - resolved clinically. Day #14 of zyvox. repeat cxr in am for radiographic resolution. 4. asthma with exacerbation - resolved. Weaning prednisone by 5mg every 3 days. Will wean to 10mg then hold at this dose until outpatient f/u. Leave at 25mg today. 5. thrush - nystatin solution qid. Resolved. 6. abdominal distension - resolved. 7. DVT proph - lovenox once daily. 8. CKD stage 3 - creatinine stable. 9. citrobacter UTI - resolved. 10. deconditioning - severe - patient agreeable to rehab. Acute inpatient rehab denied by her insurance despite completing peer to peer. Reason - does not need intensive medical therapies nor intensive rehab per the reviewer. SNF still being pursued; social work aware of such. Multiple referrals to various SNFs pending. PT, OT BOTH RECOMMENDING REHAB. 11. GI proph - PPI. dispo - SNF? despite patient denying depression she looks depressed consider SSRI attempted to call daughter; voicemail box not set up and could not leave message Continued [facility] stay due to: ambulation difficulties Discharge planning: other (rehab)
[2016-12-15] MEDS: CITALOPRAM 20 MG TAB PO SCH (07:44)
[2016-12-15] MEDS: BENZONATATE 100MG CAP PO SCH ×2 (07:44→13:53)
[2016-12-15] MEDS: DOCUSATE SODIUM/SENNA 50/8.6MG TAB PO SCH (07:45)
[2016-12-15] MEDS: MIDODRINE 2.5 MG TAB PO SCH ×3 (07:45→17:47)
[2016-12-15] MEDS: BOOST VANILLA PO SCH ×4 (07:46→13:53)
[2016-12-15] MEDS: FUROSEMIDE 20 MG TAB PO SCH (07:46)
[2016-12-15] MEDS: LIDODERM (LIDOCAINE) PATCH 5% TD SCH (07:46)
[2016-12-15] MEDS: GUAIFENESIN 600 MG TABCR PO SCH (07:46)
[2016-12-15] MEDS: TRIAMCINOLONE ACET NASAL SPRAY 10.8ML BTL NAE SCH (07:47)
[2016-12-15 08:03] VITALS: BP 149/85; PULSE 83; TEMP 36.9; O2SAT 97
[2016-12-15 08:17] VITALS: PULSE 84; O2SAT 97
[2016-12-15] MEDS: FORMOTEROL FUMA NEBULIZER SOLN 20 MCG/2 ML VIAL INH SCH ×2 (08:17→19:02)
--- NOTE | 2016-12-15 08:34 | DIAGNOSTIC IMAGING REPORT ---
CHEST 2 VIEWS ROUTINE CLINICAL HISTORY: Abnormal chest x-ray FOLLOW-UP STUDY COMPARISON STUDY: 12/12/2016 FINDINGS: The heart remains mildly enlarged. There is no failure. There are postsurgical changes present within the cervical spine and shoulders. There are postsurgical changes of a thoracolumbar spinal fusion. There is a suspected small right pleural effusion. There are bibasal airspace opacities, likely atelectatic.[ IMPRESSION: Stable findings. Persistent small right pleural effusion. Persistent bibasilar airspace opacities likely atelectatic. Electronically signed by: Edenilson Barrett M.D. 12/15/2016 8:32 AM Dictated Date/Time: 12/15/2016 8:31 AM
[2016-12-15 11:40] VITALS: BP 128/78; PULSE 92
[2016-12-15 14:12] VITALS: BP 128/78; PULSE 92; TEMP 36.9; O2SAT 97
[2016-12-15] MEDS ORDERED: GFNSR600 PO (14:41)
[2016-12-15] MEDS ORDERED: TPRSR25 PO (14:41)
[2016-12-15] MEDS ORDERED: IPRA1AER2 INH (14:41)
[2016-12-15] MEDS ORDERED: LSX20 PO (14:41)
[2016-12-15] MEDS ORDERED: SENN8.6T7 PO (14:41)
[2016-12-15] MEDS ORDERED: FRCT/ PO (14:41)
[2016-12-15] MEDS ORDERED: ULT50 PO (14:41)
[2016-12-15] MEDS ORDERED: BENZ100C7 PO (14:41)
[2016-12-15] MEDS ORDERED: PRED10TA PO (14:41)
[2016-12-15] MEDS ORDERED: CLX40 PO (14:41)
[2016-12-15] MEDS ORDERED: POTA1CAP2 PO (14:41)
--- NOTE | 2016-12-15 14:49 | Discharge Instructions ---
Discharge Instructions Date of Service Dec 15, 2016. Admission Reason for Admission: Dyspnea due to pneumonia and CHF Discharge Discharge Diagnosis / Problem: MRSA pneumonia along with acute CHF. Discharge Goals Goal(s): Improve disease control, Learn about illness, Diagnostic testing, Therapeutic intervention Activity Recommendations Activity Level: Up Ad Molly, Assistance Required Therapies: Physical Therapy, Occupational Therapy Exercise/Sports Limitations: gradually increase as tolerated Shower/Bathe: no limitations . Additional Information Patient informed of condition: Yes Advance Directives: Yes DNR: No Level of Care: Skilled Communicable Disease: Yes (MRSA precautions) Prognosis: Stable Oxygen at (LPM): none Mahoney Catheter: No Instructions / Follow-Up Instructions / Follow-Up From Dr. Mann - 1. please follow-up with [facility] in ONE WEEK - any provider 2. after the prednisone taper is complete please stop at 10mg and remain on 10mg daily until seen by the manager physical (see medication section for further details) 3. see Dr. Carlos De Souza, PCP, within 1 week of discharge from rehab Current Hospital Diet Patient's current hospital diet: AHA Diet (Heart Healthy) Discharge Diet Recommended Diet: AHA Diet (Heart Healthy) Diet Texture: Mechanical Soft (ground) Procedures Procedures Performed: 1. Chest CAT scan 2. Sinuses CAT scan 3. Abdominal CAT scan 4. video swallow test 5. bronchoscopy Pending Studies Studies pending at discharge: no Physician Orders On Transfer Vital Signs: per routine check daily O2 saturation as well also, check WEIGHT EVERY MORNING ON STANDING SCALE. Notify medical records clerk of any weight gain of more than 2-3 pounds in 1-2 days. Weigh: EVERY AM on standing scale See parameters above Additional Orders: SUMMARY/RECOMMENDATIONS from our speech therapist: Mrs. Philip presents mild to moderate oral and mild pharyngeal dysphagia. Mild esophageal dysfunction was also seen. While the patient did not aspirate for this study, she is at risk due to her compromised respiratory status and dyspnea. The following is recommended: 1.Moist mechanical soft diet, thin liquids. OOB in sitting upright in a chair for meals. 2.Aspiration precautions, straws OK. Fully upright for all p.o. intake and for 30-60 minutes after meals. Oral care q shift. 3.Safe swallow strategies: Small bites, small sips. Rest breaks as needed. CBC, BMP, and magnesium in 5 days for stability POLST Discussion: Not Applicable Medical Emergencies . Who to Call and When: Medical Emergencies: If at any time you feel your situation is an emergency, please call 911 immediately. . Non-Emergent Contact Non-Emergency issues call your: Boiler Repairman Call Non-Emergent contact if: temperature is above 100.5 worsening shortness of breath, worsening dyspnea on exertion, uncontrollable cough, weight gain of more than 2-3 pounds in 1-2 days, low oxygen levels, etc. . . "Provider Documentation" section prepared by Bradley Mann. Core Measure Problem Core Measures: None
[2016-12-15 19:02] VITALS: PULSE 84; O2SAT 97
--- NOTE | 2016-12-22 23:16 | Discharge Summary ---
Discharge Summary Date of Service Dec 22, 2016. Discharge Summary Admission Date: Nov 11, 2016 at 15:16 Discharge Date: Dec 15, 2016 Discharge Disposition: alf facility ([facility] ) Principal Diagnosis: acute hypoxic respiratory failure 2nd to MRSA pneumonia Problems/Secondary Diagnoses: 1. acute/chronic diastolic CHF 2. asthma with exacerbation 3. h/o cervical spine fusion 4. 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 GERD 6. h/o thyroid cancer 7. anxiety disorder 8. chronic pain syndrome 9. constipation - resolved 10. CKD stage 2-3 11. severe physical deconditioning 12. citrobacter UTI - resolved 13. thrush - resolved Immunizations: Have You Had Influenza Vaccine: N/A Influenza Vaccine Date: Jun 18, 2012 History of Tetanus Vaccine?: Yes Tetanus Immunization Date: Mar 18, 2004 History of Pneumococcal: Yes Pneumococcal Date: May 31, 2010 History of Hepatitis B Vaccine: No Procedures: 1. Chest CT - IMPRESSION: 1. No CT evidence of acute pulmonary embolism 2. Small right pleural effusion 3. Right middle lobe and bilateral lower lobe airspace opacities, likely atelectatic although an inflammatory process could appear similar 4. Stable 4 mm right upper lobe pulmonary nodule 5. Mild mosaic attenuation of the lungs likely representing air trapping 6. Lower lobe bronchial wall thickening 2. abdominal/pelvic CT 3. CT sinuses 4. video swallow examination 5. chest ultrasound 6. bronchoscopy - Chad Khalil MD 7. repeat limited echocardiogram - * This was a limited follow-up echocardiogram to assess the central venous and right ventricular pressures. The study was technically difficult and limited. The estimated right ventricular systolic pressure is at the upper limits of normal. The central venous pressure appeared to be normal. EF 65-70%. Consultations: pulmonary - Dewayne Clayton MD PT, OT, speech Medication Reconciliation New Medications: Benzonatate (Benzonatate) 100 Mg Cap 100 MG PO TID PRN for Cough, #30 CAP 1 Refill Guaifenesin Ext Rel (Mucinex Ext Rel) 600 Mg Tabcr 1200 MG PO BID, #60 0 Refills Metoprolol Succinate (Metoprolol Succinate ER) 25 Mg Tabcr 12.5 MG PO QPM, #30 1 Refill Sennosides-Docusate Sodium (Senokot S) 1 Tab Tab 1 TAB PO QAM, #30 TAB 1 Refill Changed Medications: Furosemide (Furosemide) 20 Mg Tab 20 MG PO QAM, #30 1 Refill (Changed from: UD; Refills: ; Removed Instructions) Potassium Chloride (Potassium Chloride Er) 10 Meq Cap 10 MEQ PO DAILY, #30 1 Refill (Changed from: 20 MEQ; BID; 120; Refills: ) Prednisone (Prednisone) 10 Mg Tab 10 MG PO DIRECTED, #100 TAB 1 Refill (Changed from: DAILY; 13; Refills: ; Take 2 tablets daily for two days then 1 1/2 tablets daily for three days then 1 tablet daily for three days then 1/2 tablet daily for three days) starting 12/16/16: take 2.5 tablets daily x 2 days, then 2 tablets daily x 5 days, then 1.5 tablets daily x 5 days, then 1 tablet daily thereafter. Take with food. Tramadol HCl (Tramadol HCl) 50 Mg Tab 50 MG PO Q6H PRN for Pain, #30 0 Refills (Changed from: Q4-6HRS; 100; Refills: ) Continued Medications: Acetamin/Butalbital/Caffeine (Fioricet) 1 Ea Tab 1 TAB PO Q4 PRN for Headache, #30 0 Refills (This prescription has been renewed) Acetaminophen (Tylenol Arthritis Ext Rel) 650 Mg Cplt 650 MG PO Q4H PRN for Pain, CAP Arformoterol Tartrate (Brovana) 15 Mcg/2 Ml Neb 15 MCG INH BID PRN for SOB/Wheezing, INHALER Calcium Carbonate (Calcium Carbonate) 1,250 Mg Tab 1 TAB PO HS Cholecalciferol (Vitamin D-1000) 1,000 Unit Tab 1000 UNITS PO DAILY Citalopram (Citalopram Hydrobromide) 40 Mg Tab 40 MG PO DAILY, #30 TAB 1 Refill (This prescription has been renewed) Cyanocobalamin (Vitamin B-12) 500 Mcg Tab 1000 MCG PO DAILY, TAB Diclofenac Sod (Voltaren 1% Top Gel) Gel 2 GM TOP QID PRN for Pain Ipratropium-Albuterol (Duoneb) 3 Ml Nebu 1 TREATMENT INH Q4H PRN for SOB/Wheezing, INHA Ipratropium-Albuterol (Combivent Respimat) 1 Aer Aer 1 PUFFS INH QID, #1 INH 1 Refill (This prescription has been renewed) Ketorolac Tromethamine (Ophth) (Ketorolac Tromethamine) 0.5 % Renetta 1 DROP OPL QID, #15 Levothyroxine Sodium (Levothyroxine Sodium) 88 Mcg Tab 88 MCG PO DAILY for 90 Days, #90 TAB 3 Refills Lidocaine (Lidoderm Patch 5% Patch) 1 Patch Tdsy 1 PATCH TOP DAILY ON 12 HOURS, OFF 12 HOURS Linaclotide (Linzess) 290 Mcg Cap 1 CAP PO QAM PRN for GI Upset Melatonin (Kp Melatonin) 3 Mg Tab 1 TAB PO HS Midodrine Hcl (Midodrine Hcl) 2.5 Mg Tab 1 TAB PO TID Omeprazole (Prilosec) 40 Mg Capcr 40 MG PO BID, CAP Polyethylene Glycol-Propylene (Systane) 1 Renetta Renetta 1 DROPS OPR QID, #30 ML 5 Refills Prednisolone Acetate (Ophth) (Pred Forte 1% Oph) 1 % Nicole 1 DROPS OPL QID, #5 ML Riboflavin (Riboflavin) 400 Mg Tab 1 TAB PO DAILY Ropinirole (Requip) 0.25 Mg Tab 0.25-0.5 MG PO HS PRN for RESTLESS LEGS, TAB Simvastatin (Zocor) 20 Mg Tab 20 MG PO HS, TAB Tiotropium [place] Monohydrate (Spiriva Respimat) 2.5 Mcg/Act Spr 2 PUFFS INH DAILY Discontinued Medications: Baclofen (Lioresal) 10 Mg Tab 10 MG PO TID PRN for Muscle Spasms, TAB Chlorphenir/Hydrocod Polistir (Tussionex) Liqcr 5 ML PO Q6 PRN for Cough for 10 Days, #100 ML Gabapentin (Gabapentin) 300 Mg Cap 300 MG PO DAILY@1200 for 30 Days, #30 CAP Nystatin (Topical) (Nystop) 100,000 Unit/Gm Pow 1 APPLN TOP BID UD Referrals At Discharge Follow up Referrals: Marker Delivery Referral - Within 1 Week with Xenia Watkins PA-C Discharge Exam Physical Exam: General Appearance: no apparent distress, + obese ENT: pharynx normal Neck: no JVD Respiratory/Chest: lungs clear, no respiratory distress, no accessory muscle use Cardiovascular: regular rate, rhythm, no gallop, no murmur, normal peripheral pulses Abdomen / GI: normal bowel sounds, non tender, soft, no organomegaly Extremities: no pedal edema Neurologic/Psychiatric: alert, oriented x 3, + depressed affect Hospital Course HISTORY OF PRESENT ILLNESS: Ms. Clouser is a 81-year-old female that was directly admitted to the hospital from her lay brother's office with complaints of a productive cough and shortness of breath that has gotten progressively worse over the last 2 weeks. The patient was discharged from the hospital 2 weeks ago with a diagnosis of acute bronchitis and diastolic CHF. Shortly after discharge, the patient's symptoms started progressing. She denies any fever or chills. She denies any chest pain. No heart palpitations or dizziness. The patient saw her lay brother last week and was put on a course of Levaquin 750 mg. She had no improvement. She saw her lay brother again 3 days ago. She was put on clindamycin 300 mg every 6 hours. She has been taking this as directed with no improvement. Her last DuoNeb was last night. The patient is dependent on steroids. She was discharged from the hospital on prednisone 30 mg. She tried to taper this to 27.5 mg but her symptoms got worse. Patient reports a weight gain of approximately 20 pounds in 2 weeks. HOSPITAL COURSE: Her acute hypoxic respiratory failure was thought to be due to a combination of factors including acute/chronic diastolic CHF, asthma with exacerbation, and right-sided pneumonia. She was treated with IV diuretics, IV steroids, and broad-spectrum IV antibiotic therapy. Despite such the patient made little to no improvement over the first 10-14 days of her hospitalization. Due to her lack of improvement she underwent diagnostic bronchoscopy by lay brother Dr. Chad Khalil. Bacterial cultures from the bronchoscopy ultimately grew MRSA. After instituting zyvox therapy for the MRSA the patient then started to show rapid improvement in all pulmonary symptoms. IV steroids were ultimately stopped and transitioned back to oral prednisone. IV diuretics were also stopped in marva of oral lasix. She completed her entire 14-day course of zyvox for the MRSA pneumonia while hospitalized. For much of her stay the patient required high-flow nasal cannula. Fortunately her O2 was weaned off in its entirety before discharge. Other issues addressed while here included thrush, constipation, citrobacter UTI , and severe deconditioning. Her prolonged hospitalization was due, in part, to difficulty securing a rehab center for her following discharge. Social work was heavily involved in this issue and fortunately she will transfer to the [facility] for rehabilitation. She will complete a SLOW prednisone taper after discharge but ultimately land at 10mg once daily and continue on this dose until she is seen by Isauro Steen. Total Time Spent: Greater than 30 minutes This includes examination of the patient, discharge planning, medication reconciliation, and communication with other providers. Discharge Instructions Please refer to the electronic Patient Visit Report (Discharge Instructions) for additional information. Follow-Up 1. see medical unit secretary of [facility] within 2-3 days 2. see [facility] - or any other provider within 1 week Additional Copies To Xenia Watkins PA-C; Michael De Souza M.D.; Jaun See PA-C; Chad Khalil MD ; [facility] at [facility]
[2017-01-14] MEDS ORDERED: GABA-113 PO (15:58)
[2017-01-14] MEDS ORDERED: VTMD1000 PO (15:58)
[2017-01-25] MEDS ORDERED: NAPR375T3 PO (11:26)
[2017-01-28] MEDS ORDERED: LSX40 PO (08:52)
[2017-01-28] MEDS ORDERED: PRD10 PO (08:52)
[2017-01-28] MEDS ORDERED: FRRS300 PO (08:52)
[2017-01-28] MEDS ORDERED: SPR25 PO (08:52)
[2017-02-09] MEDS ORDERED: TRAM-10 PO (11:35)
[2017-02-09] MEDS ORDERED: PRED20TA2 PO (11:35)
[2017-02-09] MEDS ORDERED: TIOT1AER (11:35)
[2017-04-19] MEDS ORDERED: FERR324T PO (11:29)
[2017-04-21] MEDS ORDERED: CLX20 PO (11:07)
[2017-04-21] MEDS ORDERED: PRD10 PO (11:07)
[2017-06-23] MEDS ORDERED: CLX20 PO (08:59)
[2017-06-23] MEDS ORDERED: CEPH500C2 PO (08:59)
== END 2016-12-15 19:26 | DRG 166 ==
LOC: ENRESERVDT → ENRESERVTM → C.MS4W 14:34 → UNDOADMIN 14:34 → C.MS4W 15:02 → C.2T 12-01 22:58 → C.4E 12-04 11:17
PROVIDERS: ADMIT Family Medicine; ATTEND Internal Medicine
PROC: 0B9D8ZX Drainage of Right Middle Lung Lobe, Via Natural or Artificial Opening Endoscopic, Diagnostic (ICD-10-PCS; principal; 2016-11-28)
DX: J15.212 Pneumonia due to Methicillin resistant Staphylococcus aureus (principal); J96.21 Acute and chronic respiratory failure with hypoxia; I50.33 Acute on chronic diastolic (congestive) heart failure; J45.901 Unspecified asthma with (acute) exacerbation; J98.11 Atelectasis; N39.0 Urinary tract infection, site not specified; J47.0 Bronchiectasis with acute lower respiratory infection; B37.0 Candidal stomatitis; K21.9 Gastro-esophageal reflux disease without esophagitis; E89.0 Postprocedural hypothyroidism; E78.00 Pure hypercholesterolemia, unspecified; E66.9 Obesity, unspecified; R03.0 Elevated blood-pressure reading, without diagnosis of hypertension; I12.9 Hypertensive chronic kidney disease with stage 1 through stage 4 chronic kidney disease, or unspecified chronic kidney disease; N18.3 Chronic kidney disease, stage 3 (moderate); E78.5 Hyperlipidemia, unspecified; F32.9 Major depressive disorder, single episode, unspecified; F41.9 Anxiety disorder, unspecified; I95.1 Orthostatic hypotension; B95.62 Methicillin resistant Staphylococcus aureus infection as the cause of diseases classified elsewhere; G47.00 Insomnia, unspecified; R10.9 Unspecified abdominal pain; R07.89 Other chest pain; R14.0 Abdominal distension (gaseous); B96.89 Other specified bacterial agents as the cause of diseases classified elsewhere; Z96.611 Presence of right artificial shoulder joint; Z96.612 Presence of left artificial shoulder joint; Z86.14 Personal history of Methicillin resistant Staphylococcus aureus infection; Z68.36 Body mass index [BMI] 36.0-36.9, adult; Z85.850 Personal history of malignant neoplasm of thyroid; Z87.81 Personal history of (healed) traumatic fracture; Z91.81 History of falling; Z87.01 Personal history of pneumonia (recurrent); Z98.1 Arthrodesis status; Z90.89 Acquired absence of other organs; Z98.890 Other specified postprocedural states; Z83.3 Family history of diabetes mellitus; Z82.49 Family history of ischemic heart disease and other diseases of the circulatory system; Z84.1 Family history of disorders of kidney and ureter; Z79.52 Long term (current) use of systemic steroids; Z79.899 Other long term (current) drug therapy

== ENCOUNTER → 2016-12-20 | Outpatient (CLI) | payer OTHER ==
[~2016-12-20] MED LIST changes: -BACL10TA PO; +BENZ100C7 PO; +BUTA1CAP17 PO; +CALC1CAP36 PO; +CEPH500C2 PO; +CITA20TA9 PO; +CLX20 PO; +DEXL60CA4 PO; +DICL1GEL12 TOP; +DICL1GEL34 TD; +ERGO500011 PO; +FERR1TAB23 PO; +FERR324T PO; +FRRS300 PO; +FURO-85 PO; +GABA-113 PO; +GFNSR600 PO; +GUAI1TAB69 PO; +HYDR-3983 PO; +HYDR0.75 PO; -HYDR1SUS2 PO; +INSDGIPEN SC; +INSU1INJ23 SQ; +INSU32MI13 SQ; +KFL/250 PO; +LEVO100T7 PO; +LINA1CAP; +LINE600T5 PO; +LORA-741 PO; +LPR25 PO; +LSX40 PO; +LVQ750 PO; +MCRK/10 PO; +MELA1TAB48 PO; +METH4PAK PO; +MIRA1TAB3 PO; +NAPR-1221 PO; -NRN300 PO; +NRV5 PO; +NUTR-31; +NVLGI/PEN SQ; +OMEP40CA41 PO; +OYST1TAB; +POTA1TAB97 PO; +PRD10 PO; +PRED20TA PO; +PRED20TA2 PO; +PSEU60TA80 PO; +Remove Lidoderm Patch; +SENN-65 PO; +SENN8.6T7 PO; +SPR25 PO; +SPRIN/30 INH; +TIOT1AER; +TIOT1AER2 INH; +TORS20TA2 PO; +TPRSR25 PO; +TRAM-10 PO; +VTMD1000 PO
[2016-12-20 10:15] LABS: HEMATOCRIT 36.3 % (37-47); MEAN CELL VOLUME 92.6 fL (80-100); MEAN CORPUSCULAR HEMOGLOBIN 29.3 pg (25-34); MEAN CORPUSCULAR HGB CONC 31.7 g/dl (32-36); MEAN PLATELET VOLUME 9.6 fL (7.4-10.4); PLATELET COUNT 190 K/uL (130-400); RED BLOOD COUNT 3.92 M/uL (4.2-5.4); WHITE BLOOD COUNT 8.04 K/uL (4.8-10.8)
[2016-12-20 10:18] LABS: BLOOD UREA NITROGEN 23 mg/dl (7-18); CALCIUM 8.1 mg/dl (8.5-10.1); CARBON DIOXIDE 28 mmol/L (21-32); CHLORIDE 102 mmol/L (98-107); GLUCOSE 87 mg/dl (70-99); MAGNESIUM 2.3 mg/dl (1.8-2.4); POTASSIUM 3.5 mmol/L (3.5-5.1); SODIUM 141 mmol/L (136-145)
== END ==
LOC: C.LABVPSUA 09:36
PROVIDERS: ATTEND Internal Medicine Critical Care Medicine
DX: I50.9 Heart failure, unspecified (principal); J93.9 Pneumothorax, unspecified; R53.83 Other fatigue

== ENCOUNTER → 2017-01-05 | Outpatient (CLI) | payer OTHER ==
[~2017-01-05] MED LIST changes: -LINA1CAP; +LINA1CAP PO
[2017-01-05 12:28] LABS: BLOOD UREA NITROGEN 17 mg/dl (7-18); CARBON DIOXIDE 31 mmol/L (21-32); CHLORIDE 103 mmol/L (98-107); CREATININE 0.79 mg/dl (0.60-1.20); GLUCOSE 85 mg/dl (70-99); MAGNESIUM 2.3 mg/dl (1.8-2.4); POTASSIUM 3.6 mmol/L (3.5-5.1); SODIUM 141 mmol/L (136-145)
[2017-01-05 12:39] LABS: CALCIUM 7.9 mg/dl (8.5-10.1)
--- NOTE | 2017-01-09 12:02 | CODING QUERY NO DIAGNOSIS ---
Valid Physician Order Needed A valid physician order must be submitted in order to properly bill for the service(s) provided, including date of service(s), valid diagnosis, and physician signature. If these tests are done on a recurring basis the original physican order must be submitted in order to code and bill for the service(s) provided. Please fax us the original, signed physician order so that we may expedite billing to [phone] DOS 01/05/2017 * MAGNESIUM * BMP Thank you [facility] Information Management
== END | disposition home or self-care (01) ==
LOC: C.LABSPEC 11:48
PROVIDERS: ATTEND Physician Assistant Medical
DX: E87.6 Hypokalemia (principal)

== ENCOUNTER → 2017-01-06 | Outpatient (CLI) | payer OTHER ==
[~2017-01-06] MED LIST changes: +LINA1CAP; -LINA1CAP PO
--- NOTE | 2017-01-06 11:34 | DIAGNOSTIC IMAGING REPORT ---
TWO VIEW CHEST CLINICAL HISTORY: Diaphragmatic paralysis. FINDINGS: PA and lateral chest radiographs are compared to study dated 12/15/2016. Correlation is made with chest CT dated 11/14/2016. The PA view is degraded by apical lordotic positioning. The heart is enlarged. The pulmonary vasculature is noncongested. There are low lung volumes. There are small pleural effusions with bibasilar atelectasis. No pneumothorax is seen. The skeletal structures are osteopenic. Bilateral shoulder arthroplasties are in place. Extensive fusion hardware is noted in the cervical spine and at the thoracolumbar junction. Surgical clips are seen in the upper abdomen. IMPRESSION: 1. Cardiomegaly without radiographic evidence of congestive failure. 2. Low lung volumes with layering pleural effusions and bibasilar atelectasis. This is unchanged from 12/15/2016. Electronically signed by: Justo Mejias M.D. 01/06/2017 11:31 AM Dictated Date/Time: 01/06/2017 11:30 AM
== END | disposition home or self-care (01) ==
LOC: C.RAD1850 11:02
PROVIDERS: ATTEND Surgery
DX: J98.6 Disorders of diaphragm (principal); I51.7 Cardiomegaly; J98.11 Atelectasis; D64.9 Anemia, unspecified

== ENCOUNTER → 2017-01-06 | Outpatient (CLI) | payer OTHER ==
[2017-01-06 12:36] LABS: HEMATOCRIT 34.9 % (37-47); MEAN CELL VOLUME 96.4 fL (80-100); MEAN CORPUSCULAR HEMOGLOBIN 29.6 pg (25-34); MEAN CORPUSCULAR HGB CONC 30.7 g/dl (32-36); MEAN PLATELET VOLUME 9.8 fL (7.4-10.4); PLATELET COUNT 263 K/uL (130-400); RED BLOOD COUNT 3.62 M/uL (4.2-5.4); WHITE BLOOD COUNT 8.27 K/uL (4.8-10.8)
[2017-01-06 13:04] LABS: ANISOCYTOSIS PRESENT; BASO % 0.6 %; BASO ABS # 0.05 K/uL (0-0.2); COMPLETE YES; EOS % 0.4 %; HYPOCHROMIA PRESENT; IG% 5.6 %; LYMPH % 22.4 %; LYMPH ABS # 1.85 K/uL (1.2-3.4); MONO % 9.6 %; NEUT % 61.4 %; POLYCHROMASIA 1+; TOXIC GRANULATION 1+
== END | disposition home or self-care (01) ==
LOC: C.LAB 11:25
PROVIDERS: ATTEND Internal Medicine
DX: D64.9 Anemia, unspecified (principal)

== ENCOUNTER → 2017-01-10 | Outpatient (CLI) | payer OTHER ==
[2017-01-10 16:00] LABS: FERRITIN 36.4 ng/ml (8.0-388.0)
--- NOTE | 2017-01-20 12:04 | CODING QUERY MEDICAL NECESSITY ---
CQSUPPORTING DIAGNOSIS NEEDED A supporting diagnosis is required for the test/procedure performed on this patient in order for us to be reimbursed by the patient's insurance. Please provide a supporting diagnosis for the following test/procedure listed below next to the test name along with your signature. *If there is no additional diagnosis for this patient that would support the following test/procedure please document that below next to the test/procedure. Test(s)/Procedure(s) that require a supporting diagnosis: DOS 01/10/17 VITAMIN B12 FOLIC ACID TEST ORDERED BY THEO ECHAVARRIA Provider Signature: Date: Thank you Liliana Woodruff Health Information Management Once completed, please kindly fax back to [phone] For questions please call [phone]
== END | disposition home or self-care (01) ==
LOC: C.LABSPEC 12:17
PROVIDERS: ATTEND Internal Medicine
DX: D64.9 Anemia, unspecified (principal)

== ENCOUNTER 2017-01-14 14:22 | Inpatient (IN) | payer OTHER ==
[~2017-01-14] VITALS: Ht 157.5 cm; Wt 92.3 kg
[~2017-01-14 14:22] MED LIST changes: -BUTA1CAP17 PO; -CALC1CAP36 PO; -CEPH500C2 PO; -CITA20TA9 PO; -CLX20 PO; -CYAN500T PO; -DEXL60CA4 PO; -DICL1GEL12 TOP; -DICL1GEL34 TD; -ERGO500011 PO; -FERR1TAB23 PO; -FERR324T PO; -FRRS300 PO; -FURO-85 PO; -GABA-113 PO; -GUAI1TAB69 PO; -HYDR-3983 PO; -HYDR0.75 PO; -INSDGIPEN SC; -INSU1INJ23 SQ; -INSU32MI13 SQ; -IPRASOL4 INH; -KFL/250 PO; -LEVO100T7 PO; -LEVO88TA3 PO; -LINA1CAP; -LINE600T5 PO; -LORA-741 PO; -LPR25 PO; -LSX40 PO; -LVQ750 PO; -MCRK/10 PO; -MELA1TAB48 PO; -METH4PAK PO; -MIDO2.5T PO; -MIRA1TAB3 PO; -NAPR-1221 PO; -NF84 PO; -NRV5 PO; -NUTR-31; -NVLGI/PEN SQ; -NYST100010 TOP; -OMEP40CA41 PO; -OYST1TAB; -POTA1TAB97 PO; -PRD10 PO; -PRED20TA PO; -PRED20TA2 PO; -PSEU60TA80 PO; -RIBO1TAB4 PO; -ROPI0.25 PO; -Remove Lidoderm Patch; -SENN-65 PO; -SIMV20TA2 PO; -SPR25 PO; -SPRIN/30 INH; -TIOT1AER; -TIOT1AER2 INH; -TORS20TA2 PO; -TRAM-10 PO; -VTMD1000 PO
[2017-01-14] MEDS ORDERED: SODIUM CHLORIDE 0.9% 1000ML 1,000 ML IV STA (14:28)
[2017-01-14] MEDS ORDERED: ALBUT/IPRATROP 3MG/0.5MG NEB 3 ML VIAL INH STA (14:45)
[2017-01-14] MEDS ORDERED: METHYLPREDNISOLONE 125 MG VIAL IV STA (14:45)
[2017-01-14] MEDS ORDERED: OPTIRAY 320 IV PRN (14:45)
--- NOTE | 2017-01-14 14:54 | DIAGNOSTIC IMAGING REPORT ---
CHEST ONE VIEW PORTABLE HISTORY: EVALUATE WEAKNESS COMPARISON: Chest 01/06/2017. FINDINGS: No pneumothorax. The heart remains mildly enlarged. Bilateral total shoulder arthroplasties. Distal resorption of the bilateral clavicles. There is suggestion of elevation of the right hemidiaphragm. Small bilateral pleural effusions persist. Thoracolumbar fusion rods are again noted. Bibasilar density suggesting atelectasis. Mild pulmonary vascular congestion. IMPRESSION: 1. No change from the prior study. 2. Mild pulmonary vascular congestion and small bilateral pleural effusions persist. 3. Bibasilar densities suggest subsegmental atelectasis. Electronically signed by: Jeff Maldonado M.D. 01/14/2017 2:52 PM Dictated Date/Time: 01/14/2017 2:49 PM
[2017-01-14] MEDS ORDERED: VANCOMYCIN INJ 2,000 MG in SODIUM CHLORIDE 0.9% 500ML 500 ML IV STA (15:14)
[2017-01-14] MEDS ORDERED: PIPERACILLIN/TAZOBACTAM 4.5 GM/100ML D5W IV STA (15:14)
[2017-01-14 15:23] LABS: ALLEN TEST POS (POS); ARTERIAL BLD GAS O2 SATURATION 96.7 % (90-95); ARTERIAL BLOOD GAS BASE EXCESS 6.2 mEq/L (-9-1.8); ARTERIAL BLOOD GAS HCO3 31 mmol/L (19-24); ARTERIAL BLOOD GAS PO2 93 mm/Hg (80-95); ARTERIAL BLOOD GAS pH 7.45 (7.35-7.45); O2 ADMINISTRATION 3L
[2017-01-14 15:24] LABS: BASO % 0.2 %; BASO ABS # 0.02 K/uL (0-0.2); COMPLETE YES; EOS % 0.2 %; HEMATOCRIT 32.9 % (37-47); IG% 1.2 %; LYMPH % 8.7 %; LYMPH ABS # 1.13 K/uL (1.2-3.4); MEAN CELL VOLUME 96.2 fL (80-100); MEAN CORPUSCULAR HEMOGLOBIN 28.9 pg (25-34); MEAN CORPUSCULAR HGB CONC 30.1 g/dl (32-36); MEAN PLATELET VOLUME 9.3 fL (7.4-10.4); MONO % 6.6 %; NEUT % 83.1 %; PLATELET COUNT 213 K/uL (130-400); RED BLOOD COUNT 3.42 M/uL (4.2-5.4); WHITE BLOOD COUNT 12.96 K/uL (4.8-10.8)
[2017-01-14 15:36] LABS: INR 0.9 (0.9-1.1); PROTHROMBIN TIME (PATIENT) 9.8 SECONDS (9.0-12.0)
[2017-01-14 15:43] LABS: ALT/SGPT 44 U/L (12-78); AST/SGOT 23 U/L (15-37); BLOOD UREA NITROGEN 23 mg/dl (7-18); BUN/CREATININE RATIO 23.9 (10-20); CALCIUM 7.2 mg/dl (8.5-10.1); CHLORIDE 101 mmol/L (98-107); CREATININE 0.96 mg/dl (0.60-1.20); GLUCOSE 202 mg/dl (70-99); MAGNESIUM 2.2 mg/dl (1.8-2.4); POTASSIUM 4.1 mmol/L (3.5-5.1); SODIUM 140 mmol/L (136-145)
[2017-01-14 15:52] LABS: ALKALINE PHOSPHATASE 70 U/L (45-117); CARBON DIOXIDE 29 mmol/L (21-32); CKMB/CK RATIO 2.5 (0-3.0)
[2017-01-14] MEDS ORDERED: OMEP40CA41 PO (15:58)
[2017-01-14] MEDS ORDERED: BUTA1CAP17 PO (15:58)
[2017-01-14] MEDS ORDERED: CITA20TA9 PO (15:58)
[2017-01-14] MEDS ORDERED: LINE600T5 PO (15:58)
[2017-01-14] MEDS ORDERED: HYDR0.75 PO (15:58)
[2017-01-14] MEDS ORDERED: SENN-65 PO (15:58)
[2017-01-14] MEDS ORDERED: IPRA1AER2 INH (15:58)
[2017-01-14] MEDS ORDERED: POTA1TAB97 PO (15:58)
[2017-01-14] MEDS ORDERED: FURO-85 PO (15:58)
[2017-01-14] MEDS ORDERED: GUAI1TAB69 PO (15:58)
[2017-01-14 16:11] LABS: URINE APPEARANCE CLEAR (CLEAR); URINE BILIRUBIN NEG (NEG); URINE COLOR DK YELLOW; URINE EPITHELIAL CELL AUTO 0-5 /lpf (0-5); URINE NITRITE NEG (NEG); URINE SPECIFIC GRAVITY 1.014 (1.000-1.030); UROBILINOGEN NEG (NEG)
[2017-01-14 16:18] LABS: MANUAL MICROSCOPIC REQUIRED? NO; REVIEW REQ? NO
--- NOTE | 2017-01-14 16:39 | DIAGNOSTIC IMAGING REPORT ---
CHEST CTA for PULMONARY ARTERIES CT DOSE: 667.86 mGy.cm HISTORY: Hypoxia. TECHNIQUE: Multiaxial CT images of the chest were performed following the intravenous administration of contrast to evaluate the pulmonary arteries. Maximal intensity projection images were also obtained. COMPARISON STUDY: Chest CTA 11/14/2016. FINDINGS: No hepatic or splenic masses. Lower thoracic and lumbar spine posterior fusion hardware. Cervical spinal fusion hardware. Bilateral shoulder arthroplasties. No mediastinal or hilar lymphadenopathy. Small right pleural effusion. Old right-sided rib fractures. No pneumothorax. Respiratory motion artifact. Moderate amount of mucoid material within the trachea resulting in 50% narrowing. Mildly distended and fluid-filled proximal esophagus. Stable 4 mm nodule within the right lung apex on image 85. Bibasilar linear densities. Lower lobe bronchial wall thickening persists. The bibasilar densities are similar to the prior study. Mosaic attenuation within the lungs has improved. No evidence for an aortic dissection. The heart is stable in size. The bilateral lower lobe and right middle lobe segmental and subsegmental pulmonary arteries are nondiagnostic due to the motion artifact. The remaining pulmonary arteries show no filling defects to suggest pulmonary embolus. IMPRESSION: 1. No evidence for pulmonary embolus with limitations as described above. 2. Small right pleural effusion. 3. Bibasilar linear densities are similar to the prior study and favor atelectasis. However, a pneumonia could also have a similar appearance. 4. Moderate mucoid material within the trachea resulting in 50% narrowing of the tracheal lumen. This could be due to aspiration. 5. No change in the lower lobe bronchial wall thickening. 6. Stable 4 mm right upper lobe pulmonary nodule. Electronically signed by: Jeff Maldonado M.D. 01/14/2017 4:38 PM Dictated Date/Time: 01/14/2017 4:30 PM
--- NOTE | 2017-01-14 17:17 | DIAGNOSTIC IMAGING REPORT ---
BILATERAL LOWER EXTREMITY VENOUS DOPPLER HISTORY: Leg edema, calf tenderness, eval for DVT COMPARISON STUDY: None. FINDINGS: There is normal compressibility, flow, and augmentation within the bilateral lower extremity deep venous systems. Bilateral lower extremity edema. The patient was unable to tolerate compression of the right superficial femoral vein. IMPRESSION: No DVT within the right or left lower extremity. Electronically signed by: Jeff Maldonado M.D. 01/14/2017 5:16 PM Dictated Date/Time: 01/14/2017 5:15 PM
[2017-01-14] MEDS ORDERED: FUROSEMIDE 40 MG/4 ML VIAL IV STA (17:52)
[2017-01-14] MEDS ORDERED: POTASSIUM CHLORIDE 10 MEQ TABCR PO STA (17:54)
[2017-01-14] MEDS ORDERED: FUROSEMIDE 40 MG/4 ML VIAL ONE (17:58)
[2017-01-14] MEDS ORDERED: BUTALBITAL/ACETAMIN/CAFFEINE TAB PO PRN (18:00)
[2017-01-14] MEDS ORDERED: NITROGLYCERIN 0.4 MG SL PER TAB CHARGE SL PRN (18:00)
[2017-01-14] MEDS ORDERED: MAGNESIUM HYDROXIDE SUSP 30 ML UDC PO PRN (18:00)
[2017-01-14] MEDS ORDERED: POLYETHYLENE (MIRALAX) 17 GM PACK PO PRN (18:00)
[2017-01-14] MEDS ORDERED: ONDANSETRON INJ 2 MG/ML 2 ML VIAL IV PRN (18:00)
[2017-01-14] MEDS ORDERED: ALUMINUM/MAGNESIUM/SIMETH (MAALOX MAX) 30 ML UDC PO PRN (18:00)
[2017-01-14] MEDS ORDERED: FUROSEMIDE INJ 20 MG in SYRINGE 0 ML IV ONE (19:15)
[2017-01-14 19:17] VITALS: BP 173/82; PULSE 91; TEMP 37; Ht 157.5 cm; Wt 92.3 kg
[2017-01-14 19:26] VITALS: O2SAT 96
[2017-01-14] MEDS: INSULIN ASPART 100 UNITS/ML 3 ML PEN SC SCH (19:59)
[2017-01-14] MEDS ORDERED: CEFEPIME IV 1,000 MG in DEXTROSE 5% 100ML 100 ML IV SCH (20:00)
[2017-01-14] MEDS: PrednisoLONE ACET 1% OP SUSP 5 ML BTL OPL SCH (21:12)
[2017-01-14] MEDS: KETOROLAC 0.5% OP SOLN 3 ML BTL OPL SCH (21:12)
[2017-01-14] MEDS: SIMVASTATIN 20 MG TAB PO SCH (21:13)
[2017-01-14] MEDS: GABAPENTIN 300 MG CAP PO SCH (21:13)
[2017-01-14] MEDS: MIDODRINE 2.5 MG TAB PO SCH (21:13)
[2017-01-14] MEDS: ENOXAPARIN 40 MG/0.4 ML SYR SC SCH (21:14)
[2017-01-14] MEDS: LINEZOLID 600 MG TAB PO SCH (21:14)
[2017-01-14] MEDS: GUAIFENESIN 600 MG TABCR PO SCH (21:15)
[2017-01-14] MEDS: ROPINIROLE HCL 0.25 MG TAB PO SCH (21:15)
[2017-01-14] MEDS: INSULIN GLARGINE SOLOSTAR 100 UNITS/ML 3 ML PEN SC SCH (21:21)
[2017-01-14] MEDS: ALBUT/IPRATROP 3MG/0.5MG NEB 3 ML VIAL INH SCH (21:28)
[2017-01-14 21:31] VITALS: PULSE 97; O2SAT 97
--- NOTE | 2017-01-14 22:38 | History and Physical ---
History & Physical Date & Time of Service: Jan 14, 2017 at 18:07 Chief Complaint: Shortness Of Breath Primary Care Physician: Michael De Souza M.D. 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 Patient went to the [facility] for rehab following her last hospital stay and did well from a physical standpoint with her rehab. She also did well from a pulmonary standpoint while in rehab although the daughters report she developed worsening leg edema during that rehab stay. She was released after 2 weeks of rehab to her home with her daughter, Grisel. Upon returning home she began to have worsening cough, worsening edema, and increasing dyspnea. On 01/09/17 she was placed on zyvox due to concern of returning MRSA bronchitis/ pneumonia and her steroids were increased back to 30mg daily (she has been on chronic steroids for some time). She was also seen in the cardiology office about 5 days ago. Due to the worsening edema and weight gain her lasix was doubled to 40mg daily. Thus, despite the zyvox, increased lasix, and increased prednisone, her symptoms continued to worsen. Finally, her dyspnea got so bad that walking from a chair to the bathroom or bedroom was incredibly difficult and thus she came to the ER for evaluation. After my assessment a christain was placed and following 40mg of lasix she diuresed over 1 liter of urine promptly. She was also given steroids IV by the ER attending prior to my assessment. Past Medical/Surgical History PMH: 1. chronic diastolic CHF 2. asthma 3. 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 GERD 5. h/o thyroid cancer 6. anxiety disorder 7. 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 recent prolonged hospitalization due to MRSA pneumonia & asthma exacerbation 10. hypothyroidism 11. hyperlipidemia PSH: 1. Appendectomy 2. Cervical vertebral fusion 3. Diaphragmatic paralysis on right side, s/p thoracoscopic plication of paralyzed right hemidiaphragm - 08/2016 4. lumbar arthrodesis 5. breast biopsy 6. hysterectomy 7. knee replacement 8. knee arthroscopy 9. carpal tunnel syndrome 10. shoulder surgery 11. tonsillectomy 12. vaginal sling 13. 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 since high school) Immunizations History of Influenza Vaccine: N/A Influenza Vaccine Date: Jun 18, 2012 History of Tetanus Vaccine?: Yes Tetanus Immunization Date: Mar 18, 2004 History of Pneumococcal: Yes Pneumococcal Date: May 31, 2010 History of Hepatitis B Vaccine: No Multi-Drug Resistant Organisms History of MDRO: Yes Type of MDRO: MRSA Allergies Coded Allergies: Pneumococcal Vaccine (Verified Allergy, Severe, SHORTNESS OF BREATH, ) Erythromycin (Verified Allergy, Mild, RASH, 01/14/17) Adhesives (Verified Allergy, Unknown, TAPE-REDNESS, BLISTERS, 01/14/17) Metronidazole (Verified Allergy, Unknown, skin rash, 01/14/17) allergic to generic form Phenazopyridine (Verified Allergy, Unknown, abdominal pain/rash, 01/14/17) Polymyxin B (Verified Allergy, Unknown, 01/14/17) Salicylates (Verified Allergy, Unknown, pt states rash with ASA 325 but not ASA 81mg, 01/14/17) Sulfa Antibiotics (Verified Allergy, Unknown, "SULFA DRUGS" = RASH, ) Tetracycline (Verified Allergy, Unknown, RASH, 01/14/17) Morphine (Verified Adverse Reaction, Intermediate, urinary retention - oral morphine only, 01/14/17) Diltiazem (Verified Adverse Reaction, Mild, FLUID RETENTION, 01/14/17) Metoclopramide (Verified Adverse Reaction, Mild, TREMORS, 01/14/17) Bacitracin (Verified Adverse Reaction, Unknown, "MAKES IT WORSE"-OK IF NOT OTC MEDICATION, 01/14/17) OKAY IF NOT OVER THE COUNTER MEDICATION Home Medications Scheduled Calcium Carbonate (Calcium Carbonate), 1 TAB PO HS Cholecalciferol (Vitamin D3), 1,000 UNITS PO QAM Citalopram Hydrobromide (Celexa), 30 MG PO QAM Cyanocobalamin (Vitamin B-12), 1,000 MCG PO QAM Furosemide (Lasix), 20 MG PO QAM Gabapentin (Neurontin), 300 MG PO BID Ipratropium-Albuterol (Combivent Respimat), 1 PUFFS INH QID Ketorolac Tromethamine (Ophth) (Ketorolac Tromethamine), 1 DROP OPL QID Levothyroxine Sodium (Levothyroxine Sodium), 88 MCG PO DAILY Linezolid (Zyvox), 600 MG PO BID Melatonin (Kp Melatonin), 1 TAB PO HS Midodrine Hcl (Midodrine Hcl), 1 TAB PO TID Omeprazole (Prilosec), 40 MG PO QAM Polyethylene Glycol-Propylene (Systane), 1 DROPS OPR QID Potassium Chloride (K-Tab), 20 MEQ PO QAM Prednisolone Acetate (Ophth) (Pred Forte 1% Oph), 1 DROPS OPL QID Riboflavin (Riboflavin), 1 TAB PO QAM Simvastatin (Zocor), 20 MG PO HS Tiotropium Rake Monohydrate (Spiriva Respimat), 2 PUFFS INH DAILY Scheduled PRN Acetaminophen (Tylenol Arthritis Ext Rel), 650 MG PO Q4H PRN for Pain Arformoterol Tartrate (Brovana), 15 MCG INH BID PRN for SOB/Wheezing Aivlwsndns-Vlcryldwicpqq-Rqdpp (Fioricet), 1 CAP PO Q4H PRN for Headache Guaifenesin (Mucinex Maximum Strength), 1 TAB PO DAILY PRN for CONGESTION Hydrocodone/Homatropine (Hydromet), 1 DOSE PO DIRECTED PRN for Cough Ipratropium-Albuterol (Duoneb), 1 TREATMENT INH Q4H PRN for SOB/Wheezing Linaclotide (Linzess), 1 CAP PO QAM PRN for GI Upset Ropinirole (Requip), 0.25-0.5 MG PO HS PRN for RESTLESS LEGS Senna/Docusate Sod (Senokot S), 1 TAB PO QAM PRN for Constipation Review of Systems Constitutional: + fatigue, + problem reported (20 pounds minimum of weight gain ), + sweats, + weakness, No chills, No fever, No weight loss Eyes: No worsening of vision ENT: No nasal symptoms, No sore throat, No trouble swallowing Respiratory: + cough, + dyspnea on exertion (walking 10 feet), + shortness of breath, + sputum (minimal), + wheezing, No hemoptysis Cardiovascular: + PND, + chest pain (with coughing only; no substernal pain), + edema, + orthopnea, No palpitations Abdomen: No GI bleeding, No diarrhea, No nausea, No pain, No vomiting Musculoskeletal: No joint pain, No muscle pain Genitourinary - Female: No dysuria Neurologic: No numbness/tingling Psychiatric: + anxiety Endocrine: + fatigue Hematologic / Lymphatic: No abnormal bleeding/bruising Integumentary: No rash Physical Exam Vital Signs Date Time Temp Pulse Resp B/P Pulse Ox O2 Delivery O2 Flow Rate FiO2 01/14/17 17:26 91 22 158/88 94 Nasal Cannula 3.0 01/14/17 16:22 98 20 137/103 94 Room Air 01/14/17 15:12 97 24 143/83 96 Nebulizer 01/14/17 14:35 103 01/14/17 14:24 37.3 100 24 173/90 93 Nasal Cannula 3.0 01/14/17 14:24 93 Nasal Cannula 3.0 01/14/17 14:24 87 Room Air General Appearance: + mild distress (tachypnea, audible wheezing while I was speaking with her; coughing spells), + pertinent finding (marmolejo facies/puffy face ) Head: normocephalic, atraumatic Eyes: PERRL, + abnormal sclerae exam (subconjunctival hemorrhage right eye), + pertinent finding (lens implant left eye) ENT: TMs normal, pharynx normal, + pertinent finding (no thrush) Neck: supple, no adenopathy, thyroid normal, + JVD (appears to have JVD) Respiratory/Chest: + respiratory distress, + accessory muscle use, + crackles ( bases), + wheezing (extensive b/l ) Cardiovascular: regular rate, rhythm, no gallop, normal peripheral pulses, + systolic murmur (2/6 RUSB) Abdomen/GI: normal bowel sounds, non tender, soft, no organomegaly, + hernia ( tiny umbilical hernia - reducible ), + pertinent finding (ascites present vs body wall edema) Back: normal inspection Extremities/Musculoskelatal: + pedal edema (2+ b/l ), + swelling (2+ b/l ) Neurologic/Psych: no motor/sensory deficits, alert, normal reflexes, oriented x 3 Skin: no rash Lymphatic: no adenopathy (no cervical lymphadenopathy ) Diagnostics Laboratory Results Results Past 24 Hours Test 01/14/17 15:07 01/14/17 15:10 01/14/17 15:50 Range/Units White Blood Count 12.96 4.8-10.8 K/uL Red Blood Count 3.42 4.2-5.4 M/uL Hemoglobin 9.9 12.0-16.0 g/dL Hematocrit 32.9 37-47 % Mean Corpuscular Volume 96.2 80-100 fL Mean Corpuscular Hemoglobin 28.9 25-34 pg Mean Corpuscular Hemoglobin Concent 30.1 32-36 g/dl Platelet Count 213 130-400 K/uL Mean Platelet Volume 9.3 7.4-10.4 fL Neutrophils (%) (Auto) 83.1 % Lymphocytes (%) (Auto) 8.7 % Monocytes (%) (Auto) 6.6 % Eosinophils (%) (Auto) 0.2 % Basophils (%) (Auto) 0.2 % Neutrophils # (Auto) 10.78 1.4-6.5 K/uL Lymphocytes # (Auto) 1.13 1.2-3.4 K/uL Monocytes # (Auto) 0.86 0.11-0.59 K/uL Eosinophils # (Auto) 0.02 0-0.5 K/uL Basophils # (Auto) 0.02 0-0.2 K/uL RDW Standard Deviation 68.2 36.4-46.3 fL RDW Coefficient of Variation 19.5 11.5-14.5 % Immature Granulocyte % (Auto) 1.2 % Immature Granulocyte # (Auto) 0.15 0.00-0.02 K/uL Nucleated RBC Absolute Count (auto) 0.04 0-0 K/uL Nucleated Red Blood Cells % 0.3 % Prothrombin Time 9.8 9.0-12.0 SECONDS Prothromb Time International Ratio 0.9 0.9-1.1 Activated Partial Thromboplast Time 25.6 21.0-31.0 SECONDS Partial Thromboplastin Ratio 1.0 Arterial Blood pH 7.45 7.35-7.45 Arterial Blood Partial Pressure CO2 45 35-46 mmHg Arterial Blood Partial Pressure O2 93 80-95 mm/Hg Arterial Blood HCO3 31 19-24 mmol/L Arterial Blood Oxygen Saturation 96.7 90-95 % Arterial Blood Base Excess 6.2 -9-1.8 mEq/L Arterial Blood Gas Delivery 3L John Test POS POS Sodium Level 140 136-145 mmol/L Potassium Level 4.1 3.5-5.1 mmol/L Chloride Level 101 98-107 mmol/L Carbon Dioxide Level 29 21-32 mmol/L Anion Gap 10.0 3-11 mmol/L Blood Urea Nitrogen 23 7-18 mg/dl Creatinine 0.96 0.60-1.20 mg/dl Est Creatinine Clear Calc Drug Dose 51.9 ml/min Estimated GFR () 64.7 Estimated GFR (Non- 55.9 BUN/Creatinine Ratio 23.9 10-20 Random Glucose 202 70-99 mg/dl Calcium Level 7.2 8.5-10.1 mg/dl Magnesium Level 2.2 1.8-2.4 mg/dl Total Bilirubin 0.4 0.2-1 mg/dl Direct Bilirubin < 0.1 0-0.2 mg/dl Aspartate Amino Transf (AST/SGOT) 23 15-37 U/L Alanine Aminotransferase (ALT/SGPT) 44 12-78 U/L Alkaline Phosphatase 70 45-117 U/L Total Creatine Kinase 73 26-192 U/L Creatine Kinase MB 1.8 0.5-3.6 ng/ml Creatine Kinase MB Ratio 2.5 0-3.0 Troponin I < 0.015 0-0.045 ng/ml Pro-B-Type Natriuretic Peptide 226 0-1800 pg/ml Total Protein 6.6 6.4-8.2 gm/dl Albumin 3.1 3.4-5.0 gm/dl Lipase 98 73-393 U/L Thyroid Stimulating Hormone (TSH) 1.010 0.300-4.500 uIu/ml Bedside Lactic Acid Venous 2.95 0.90-1.70 mmol/L Urine Color DK YELLOW Urine Appearance CLEAR CLEAR Urine pH 5.0 4.5-7.5 Urine Specific [place] 1.014 1.000-1.030 Urine Protein NEG NEG Urine Glucose (UA) NEG NEG Urine Ketones NEG NEG Urine Occult Blood TRACE NEG Urine Nitrite NEG NEG Urine Bilirubin NEG NEG Urine Urobilinogen NEG NEG Urine Leukocyte Esterase NEG NEG Urine WBC (Auto) 0 0-5 /hpf Urine RBC (Auto) 0-4 0-4 /hpf Urine Hyaline Casts (Auto) 0 0-5 /lpf Urine Epithelial Cells (Auto) 0-5 0-5 /lpf Urine Bacteria (Auto) NEG NEG Microbiology Results 01/14/17 Blood Culture, Received Pending 01/14/17 Blood Culture, Received Pending 01/14/17 Urine Culture, Received Pending Diagnostic Radiology cxr: IMPRESSION: 1. No change from the prior study. 2. Mild pulmonary vascular congestion and small bilateral pleural effusions persist. 3. Bibasilar densities suggest subsegmental atelectasis. CTA chest: IMPRESSION: 1. No evidence for pulmonary embolus with limitations as described above. 2. Small right pleural effusion. 3. Bibasilar linear densities are similar to the prior study and favor atelectasis. However, a pneumonia could also have a similar appearance. 4. Moderate mucoid material within the trachea resulting in 50% narrowing of the tracheal lumen. This could be due to aspiration. 5. No change in the lower lobe bronchial wall thickening. 6. Stable 4 mm right upper lobe pulmonary nodule. Bilateral Lower Extremity Venous Duplex Study: negative for DVT. EKG EKG - my reading - NSR, Flat ST segments V2-V6 In comparison to prior EKG - ST segments are more depressed/flat today in the anterior leads Impression Assessment and Plan 82yo female with long-standing asthma, chronic diastolic CHF, and a recent prolonged hospital stay for MRSA pneumonia/asthma exacerbation - presenting with : 1. acute hypoxic respiratory failure - her imaging is largely unchanged from her scans/x-rays completed during the prior hospitalization. Her presentation today is very similar to last time although it appears the bulk of her respiratory failure today is volume related. Specifically, it appears she has gained nearly 20 pounds of weight since her prior hospitalization. I cannot rule out an infectious component to her illness, especially in light of the lactic acidosis. See below. 2. acute/chronic diastolic CHF - placed christian due to her extreme respiratory distress. Lasix 60mg IV x 1 and follow UOP/weights/BUN & Cr. I imagine she will likely need 40mg of lasix IV daily-BID starting tomorrow. Prednisone and its resultant fluid retention likely contributing heavily to her volume status. Undiagnosed and/or untreated YULY could be contributing. She is markedly hypertensive and thus this may be contributing as well. She was discharged on low-dose beta richy 1 month ago. It is not on her med list today; will resume toprol xl 12.5 mg HS as previous. Nitro paste 0.5 inch q6h for afterload reduction/BP control to assist w/ diuresis. 3. question of infectious component - there is mucous in the airways on CT chest. This may simply be due to mucous plugging from her asthma. I cannot rule out concomitant infection. Send sputum cx. Reasonable to finish her course of zyvox - today is day #6; plan 10 days total. Add cefepime for gram negative coverage. Defer on atypical coverage as she has had several courses of levaquin in the last 2 months. She was seen by speech during the previous stay and had a NORMAL video swallow; would defer on anaerobe coverage at this time. Check procalcitonin to help with decision about antibiotic therapy. Pulmonary consult will be requested as well given the complexities of her pulmonary issues. 4. h/o pre-DM / T2DM - will place on lantus + novolog as her glycemic control will worsen with steroids. 5. asthma with exacerbation - I am uncertain how much of her wheezing is pulmonary in nature and how much is "cardiac wheezing" from pulmonary edema. [id number] will increase steroids to q6h IV in light of the amount of distress she is in. Taper as tolerated. 6. CKD stage 2 - creatinine is at baseline today. BMP in am. 7. DVT proph - lovenox 40mg daily. 8. anemia - chronic - H/H slightly lower than baseline. Follow carefully. 9. hypothyroidism - cont synthroid same dose; TSH recently was normal. 10. anxiety - cont home meds except celexa which MUST BE HELD ACCORDING TO PHARMACY DUE TO INCREASED RISK OF SEROTONIN SYNDROME WITH CONCOMITANT ZYVOX USAGE. CAN RESUME ONCE OFF THE ZYVOX. DAUGHTER WILL NEED TO BE INFORMED OF WHY THE CELEXA IS BEING HELD. 11. h/o orthostatic hypotension - remains on midodrine TID. 12. HTN - uncontrolled; resume the metoprolol xl as above, and nitropaste q6h. Can likely d/c the latter once she diureses. 13. GERD - PPI. 14. c/o chest discomfort - suspect musculoskeletal from coughing but in light of EKG findings will run serial troponins to be complete. PT, OT consults due to recent deconditioning and rehab stay daughters updated Level of Care Telemetry Advanced Directives Existing Advance Directive: Yes Existing Living Will: Yes Existing Power of Grinding Machine Operator: Yes Resuscitation Status FULL RESUSCITATION VTE Prophylaxis VTE Risk Assessment Done? Y/N: Yes Risk Level: Moderate Given or contraindicated: Enoxaparin (Lovenox)SQ Note total visit time 70 minutes Additional Copies To Michael De Souza M.D.; Jaun See PA-C
[2017-01-14 23:15] VITALS: BP 153/77; PULSE 91; TEMP 36.7; O2SAT 97
[2017-01-14] MEDS: NITROGLYCERIN OINT 2% 1GM PACKET EXT SCH (23:18)
[2017-01-14] MEDS: METHYLPREDNISOLONE IV 40 MG in SYRINGE 0 ML IV SCH (23:18)
[2017-01-14] MEDS: METOPROLOL SUCC 25MG EXT REL TAB PO SCH (23:19)
[2017-01-15] VITALS (23 sets, daily range): BP systolic 141–184; BP diastolic 76–104; PULSE 83–106; TEMP 36.5–37; O2SAT 93–99
--- NOTE | 2017-01-15 00:06 | EMERGENCY ROOM VISIT NOTE ---
History Report prepared by Suzanna: Rae Hawkins Under the Supervision of: Dr. Lukas Bowens M.D. First contact with patient: 14:27 Chief Complaint: SHORTNESS OF BREATH Stated Complaint: SHORTNESS OF BREATH Nursing Triage Summary: pt presents via ambulance for eval of shortness of breath, ems report pt was recently d/c'd from hospital/pt adm with pneumonia. History of Present Illness The patient is a 82 year old female who presents to the Emergency Room with complaints of worsening shortness of breath for the past 9 days. The history is obtained from the patient's daughter. The patient was recently admitted to the hospital for 6 weeks. She was treated for pneumonia and MRSA infection in the lungs. She was discharged on December 15 to [place], where she stayed for 2 weeks before returning home. Daughter states that she has been doing well, but 9 days ago developed a cough again. She had a chest x-ray on January 06 that showed an enlarged heart and effusions on both sides but no significant change from December 15. Today the patient became more short of breath. She also notes some mild substernal chest pain. She used her regular inhalers today. At home her O2 was 71% on room air. Family called the ambulance and the patient's O2 saturation improved with oxygen. She is currently 93% on 3L of O2. Daughters note swelling around the patient's ankles. She is currently taking Lasix, prednisone, and Linezolid. Her appetite and fluid intake has been normal. The patient does not take any blood thinners and has no previous history of blood clots. Pt denies LOC, headache, fevers, chills, diaphoresis, visual changes, neck pain, nausea, vomiting, abdominal pain, back pain, melena, hematochezia, urinary symptoms, numbness, weakness, lymphadenopathy, rash, or other complaints. Source of History: patient, family (daughters) Onset: 9 days ago Position: chest (respiratory) Symptom Intensity: 71% on room air Quality: other (shortness of breath) Timing: worsening Modifying Factors (Relieving): oxygen Associated Symptoms: + cough Review of Systems See HPI for pertinent positives and negatives. A total of ten systems were reviewed and were otherwise negative. Past Medical & Surgical Medical Problems: (1) Abdominal pain (2) Acute bronchitis (3) Acute respiratory failure with hypoxia (4) Appendectomy (5) Asthma (6) Cervical vertebral fusion (7) Diaphragmatic paralysis (8) Diarrhea (9) DJD of right shoulder (10) UMANA (dyspnea on exertion) (11) Dyspnea, unspecified (12) Gastroesophageal reflux disease (13) MRSA pneumonia (14) Syncope due to orthostatic hypotension Family History Diabetes mellitus FH: cancer FH: gallbladder disease FH: heart disease FH: lung disease Hypertension Kidney disease or stones Social History Smoking Status: Never Smoker Alcohol Use: none Drug Use: none Marital Status: Housing Status: lives with family Occupation Status: retired Current/Historical Medications Scheduled Calcium Carbonate (Calcium Carbonate), 1 TAB PO HS Cholecalciferol (Vitamin D3), 1,000 UNITS PO QAM Citalopram Hydrobromide (Celexa), 30 MG PO QAM Cyanocobalamin (Vitamin B-12), 1,000 MCG PO QAM Furosemide (Lasix), 20 MG PO QAM Gabapentin (Neurontin), 300 MG PO BID Ipratropium-Albuterol (Combivent Respimat), 1 PUFFS INH QID Ketorolac Tromethamine (Ophth) (Ketorolac Tromethamine), 1 DROP OPL QID Levothyroxine Sodium (Levothyroxine Sodium), 88 MCG PO DAILY Linezolid (Zyvox), 600 MG PO BID Melatonin (Kp Melatonin), 1 TAB PO HS Midodrine Hcl (Midodrine Hcl), 1 TAB PO TID Omeprazole (Prilosec), 40 MG PO QAM Polyethylene Glycol-Propylene (Systane), 1 DROPS OPR QID Potassium Chloride (K-Tab), 20 MEQ PO QAM Prednisolone Acetate (Ophth) (Pred Forte 1% Oph), 1 DROPS OPL QID Riboflavin (Riboflavin), 1 TAB PO QAM Simvastatin (Zocor), 20 MG PO HS Tiotropium [place] Monohydrate (Spiriva Respimat), 2 PUFFS INH DAILY Scheduled PRN Acetaminophen (Tylenol Arthritis Ext Rel), 650 MG PO Q4H PRN for Pain Arformoterol Tartrate (Brovana), 15 MCG INH BID PRN for SOB/Wheezing Xqbatkknkc-Hcswuhculxnxp-Tfaah (Fioricet), 1 CAP PO Q4H PRN for Headache Guaifenesin (Mucinex Maximum Strength), 1 TAB PO DAILY PRN for CONGESTION Hydrocodone/Homatropine (Hydromet), 1 DOSE PO DIRECTED PRN for Cough Ipratropium-Albuterol (Duoneb), 1 TREATMENT INH Q4H PRN for SOB/Wheezing Linaclotide (Linzess), 1 CAP PO QAM PRN for GI Upset Ropinirole (Requip), 0.25-0.5 MG PO HS PRN for RESTLESS LEGS Senna/Docusate Sod (Senokot S), 1 TAB PO QAM PRN for Constipation Allergies Coded Allergies: Pneumococcal Vaccine (Verified Allergy, Severe, SHORTNESS OF BREATH, ) Erythromycin (Verified Allergy, Mild, RASH, 01/14/17) Adhesives (Verified Allergy, Unknown, TAPE-REDNESS, BLISTERS, 01/14/17) Metronidazole (Verified Allergy, Unknown, skin rash, 01/14/17) allergic to generic form Phenazopyridine (Verified Allergy, Unknown, abdominal pain/rash, 01/14/17) Polymyxin B (Verified Allergy, Unknown, 01/14/17) Salicylates (Verified Allergy, Unknown, pt states rash with ASA 325 but not ASA 81mg, 01/14/17) Sulfa Antibiotics (Verified Allergy, Unknown, "SULFA DRUGS" = RASH, ) Tetracycline (Verified Allergy, Unknown, RASH, 01/14/17) Morphine (Verified Adverse Reaction, Intermediate, urinary retention - oral morphine only, 01/14/17) Diltiazem (Verified Adverse Reaction, Mild, FLUID RETENTION, 01/14/17) Metoclopramide (Verified Adverse Reaction, Mild, TREMORS, 01/14/17) Bacitracin (Verified Adverse Reaction, Unknown, "MAKES IT WORSE"-OK IF NOT OTC MEDICATION, 01/14/17) OKAY IF NOT OVER THE COUNTER MEDICATION Physical Exam Vital Signs Date Time Temp Pulse Resp B/P Pulse Ox O2 Delivery O2 Flow Rate FiO2 01/14/17 17:26 91 22 158/88 94 Nasal Cannula 3.0 01/14/17 16:22 98 20 137/103 94 Room Air 01/14/17 15:12 97 24 143/83 96 Nebulizer 01/14/17 14:35 103 01/14/17 14:24 37.3 100 24 173/90 93 Nasal Cannula 3.0 01/14/17 14:24 93 Nasal Cannula 3.0 01/14/17 14:24 87 Room Air Physical Exam GENERAL: Awake, sleepy, uncomfortable, dyspneic-appearing, in no distress HENT: Normocephalic, atraumatic. Oropharynx unremarkable. EYES: Subconjunctival hemorrhage on the right. Sclera non-icteric. NECK: Supple. No nuchal rigidity. FROM. No JVD. RESPIRATORY: Inspiratory and expiratory wheezing bilaterally. CARDIAC: Regular rate, normal rhythm. Extremities warm and well perfused. Pulses equal. ABDOMEN: Soft, non-distended. No tenderness to palpation. No rebound or guarding. No masses. RECTAL: Deferred. MUSCULOSKELETAL: Chest examination reveals no tenderness. The back is symmetrical on inspection without obvious abnormality. There is no CVA tenderness to palpation. No joint edema. LOWER EXTREMITIES: Calves are tender bilaterally. Chronic venous discoloration. 3+ edema bilaterally. NEURO: Normal sensorium. No sensory or motor deficits noted. SKIN: No rash or jaundice noted. Medical Decision & Procedures ER Provider Diagnostic Interpretation: Radiology results as stated below per my review and radiologist interpretation: CHEST ONE VIEW PORTABLE HISTORY: EVALUATE WEAKNESS COMPARISON: Chest 01/06/2017. FINDINGS: No pneumothorax. The heart remains mildly enlarged. Bilateral total shoulder arthroplasties. Distal resorption of the bilateral clavicles. There is suggestion of elevation of the right hemidiaphragm. Small bilateral pleural effusions persist. Thoracolumbar fusion rods are again noted. Bibasilar density suggesting atelectasis. Mild pulmonary vascular congestion. IMPRESSION: 1. No change from the prior study. 2. Mild pulmonary vascular congestion and small bilateral pleural effusions persist. 3. Bibasilar densities suggest subsegmental atelectasis. Electronically signed by: Jeff Maldonado M.D. 01/14/2017 2:52 PM Dictated Date/Time: 01/14/2017 2:49 PM CHEST CTA for PULMONARY ARTERIES CT DOSE: 667.86 mGy.cm HISTORY: Hypoxia. TECHNIQUE: Multiaxial CT images of the chest were performed following the intravenous administration of contrast to evaluate the pulmonary arteries. Maximal intensity projection images were also obtained. COMPARISON STUDY: Chest CTA 11/14/2016. FINDINGS: No hepatic or splenic masses. Lower thoracic and lumbar spine posterior fusion hardware. Cervical spinal fusion hardware. Bilateral shoulder arthroplasties. No mediastinal or hilar lymphadenopathy. Small right pleural effusion. Old right-sided rib fractures. No pneumothorax. Respiratory motion artifact. Moderate amount of mucoid material within the trachea resulting in 50% narrowing. Mildly distended and fluid-filled proximal esophagus. Stable 4 mm nodule within the right lung apex on image 85. Bibasilar linear densities. Lower lobe bronchial wall thickening persists. The bibasilar densities are similar to the prior study. Mosaic attenuation within the lungs has improved. No evidence for an aortic dissection. The heart is stable in size. The bilateral lower lobe and right middle lobe segmental and subsegmental pulmonary arteries are nondiagnostic due to the motion artifact. The remaining pulmonary arteries show no filling defects to suggest pulmonary embolus. IMPRESSION: 1. No evidence for pulmonary embolus with limitations as described above. 2. Small right pleural effusion. 3. Bibasilar linear densities are similar to the prior study and favor atelectasis. However, a pneumonia could also have a similar appearance. 4. Moderate mucoid material within the trachea resulting in 50% narrowing of the tracheal lumen. This could be due to aspiration. 5. No change in the lower lobe bronchial wall thickening. 6. Stable 4 mm right upper lobe pulmonary nodule. Electronically signed by: Jeff Maldonado M.D. 01/14/2017 4:38 PM Dictated Date/Time: 01/14/2017 4:30 PM BILATERAL LOWER EXTREMITY VENOUS DOPPLER HISTORY: Leg edema, calf tenderness, eval for DVT COMPARISON STUDY: None. FINDINGS: There is normal compressibility, flow, and augmentation within the bilateral lower extremity deep venous systems. Bilateral lower extremity edema. The patient was unable to tolerate compression of the right superficial femoral vein. IMPRESSION: No DVT within the right or left lower extremity. Electronically signed by: Jeff Maldonado M.D. 01/14/2017 5:16 PM Dictated Date/Time: 01/14/2017 5:15 PM Laboratory Results 01/14/17 15:07 Red Blood Count 3.42, Mean Corpuscular Volume 96.2, Mean Corpuscular Hemoglobin 28.9, Mean Corpuscular Hemoglobin Concent 30.1, Mean Platelet Volume 9.3, Neutrophils (%) (Auto) 83.1, Lymphocytes (%) (Auto) 8.7, Monocytes (%) (Auto) 6.6, Eosinophils (%) (Auto) 0.2, Basophils (%) (Auto) 0.2, Neutrophils # (Auto) 10.78, Lymphocytes # (Auto) 1.13, Monocytes # (Auto) 0.86, Eosinophils # (Auto) 0.02, Basophils # (Auto) 0.02 01/14/17 15:07 Test 01/14/17 15:07 01/14/17 15:10 01/14/17 15:50 White Blood Count 12.96 K/uL (4.8-10.8) Red Blood Count 3.42 M/uL (4.2-5.4) Hemoglobin 9.9 g/dL (12.0-16.0) Hematocrit 32.9 % (37-47) Mean Corpuscular Volume 96.2 fL (80-100) Mean Corpuscular Hemoglobin 28.9 pg (25-34) Mean Corpuscular Hemoglobin Concent 30.1 g/dl (32-36) Platelet Count 213 K/uL (130-400) Mean Platelet Volume 9.3 fL (7.4-10.4) Neutrophils (%) (Auto) 83.1 % Lymphocytes (%) (Auto) 8.7 % Monocytes (%) (Auto) 6.6 % Eosinophils (%) (Auto) 0.2 % Basophils (%) (Auto) 0.2 % Neutrophils # (Auto) 10.78 K/uL (1.4-6.5) Lymphocytes # (Auto) 1.13 K/uL (1.2-3.4) Monocytes # (Auto) 0.86 K/uL (0.11-0.59) Eosinophils # (Auto) 0.02 K/uL (0-0.5) Basophils # (Auto) 0.02 K/uL (0-0.2) RDW Standard Deviation 68.2 fL (36.4-46.3) RDW Coefficient of Variation 19.5 % (11.5-14.5) Immature Granulocyte % (Auto) 1.2 % Immature Granulocyte # (Auto) 0.15 K/uL (0.00-0.02) Nucleated RBC Absolute Count (auto) 0.04 K/uL (0-0) Nucleated Red Blood Cells % 0.3 % Prothrombin Time 9.8 SECONDS (9.0-12.0) Prothromb Time International Ratio 0.9 (0.9-1.1) Activated Partial Thromboplast Time 25.6 SECONDS (21.0-31.0) Partial Thromboplastin Ratio 1.0 Arterial Blood pH 7.45 (7.35-7.45) Arterial Blood Partial Pressure CO2 45 mmHg (35-46) Arterial Blood Partial Pressure O2 93 mm/Hg (80-95) Arterial Blood HCO3 31 mmol/L (19-24) Arterial Blood Oxygen Saturation 96.7 % (90-95) Arterial Blood Base Excess 6.2 mEq/L (-9-1.8) Arterial Blood Gas Delivery 3L John Test POS (POS) Anion Gap 10.0 mmol/L (3-11) Est Creatinine Clear Calc Drug Dose 51.9 ml/min Estimated GFR () 64.7 Estimated GFR (Non- 55.9 BUN/Creatinine Ratio 23.9 (10-20) Calcium Level 7.2 mg/dl (8.5-10.1) Magnesium Level 2.2 mg/dl (1.8-2.4) Total Bilirubin 0.4 mg/dl (0.2-1) Direct Bilirubin < 0.1 mg/dl (0-0.2) Aspartate Amino Transf (AST/SGOT) 23 U/L (15-37) Alanine Aminotransferase (ALT/SGPT) 44 U/L (12-78) Alkaline Phosphatase 70 U/L (45-117) Total Creatine Kinase 73 U/L (26-192) Creatine Kinase MB 1.8 ng/ml (0.5-3.6) Creatine Kinase MB Ratio 2.5 (0-3.0) Pro-B-Type Natriuretic Peptide 226 pg/ml (0-1800) Total Protein 6.6 gm/dl (6.4-8.2) Albumin 3.1 gm/dl (3.4-5.0) Lipase 98 U/L (73-393) Procalcitonin 0.09 ng/ml (0-0.5) Thyroid Stimulating Hormone (TSH) 1.010 uIu/ml (0.300-4.500) Bedside Lactic Acid Venous 2.95 mmol/L (0.90-1.70) Urine Color DK YELLOW Urine Appearance CLEAR (CLEAR) Urine pH 5.0 (4.5-7.5) Urine Specific [place] 1.014 (1.000-1.030) Urine Protein NEG (NEG) Urine Glucose (UA) NEG (NEG) Urine Ketones NEG (NEG) Urine Occult Blood TRACE (NEG) Urine Nitrite NEG (NEG) Urine Bilirubin NEG (NEG) Urine Urobilinogen NEG (NEG) Urine Leukocyte Esterase NEG (NEG) Urine WBC (Auto) 0 /hpf (0-5) Urine RBC (Auto) 0-4 /hpf (0-4) Urine Hyaline Casts (Auto) 0 /lpf (0-5) Urine Epithelial Cells (Auto) 0-5 /lpf (0-5) Urine Bacteria (Auto) NEG (NEG) Laboratory results reviewed by me Medications Administered Medications (Trade) Dose Ordered Sig/Natasha Route Start Time Stop Time Status Last Admin Dose Admin Sodium Chloride (Nss 1000ml) 1,000 ml @ 125 mls/hr Q8H STAT IV 01/14/17 14:28 01/14/17 22:27 DC 01/14/17 14:28 125 MLS/HR Albuterol/ Ipratropium (Duoneb) 3 ml NOW STAT INH 01/14/17 14:45 01/14/17 14:48 DC 01/14/17 15:05 3 ML Methylprednisolone Sodium Succinate (Solu-Medrol IV) 125 mg NOW STAT IV 01/14/17 14:45 01/14/17 14:48 DC 01/14/17 15:05 125 MG Piperacillin Sod/ Tazobactam Sod 4.5 gm 4.5 gm NOW STAT IV 01/14/17 15:14 01/14/17 15:15 DC 01/14/17 15:40 4.5 GM Vancomycin HCl/ Sodium Chloride (Vancomycin Inj/ Nss 500ml) 540 ml @ 200 mls/hr ONE STAT IV 01/14/17 15:14 01/14/17 17:55 DC 01/14/17 17:22 200 MLS/HR ECG Indication: SOB/dyspnea Rate (beats per minute): 100 Rhythm: normal sinus Findings: nonspecific-ST abn, no acute ischemic change, no ectopy ED Course 1427: The patient was evaluated in room A10. A complete history and physical exam was performed. 1428: NSS 1000 ml @ 125 mls/hr IV 1445: Solu-Medrol 125 mg IV, Duoneb 3 ml INH 1454: I updated the nursing staff and they are paging lab. 1514: Vancomycin HCl 2000 mg/Sodium Chloride 540 ml @ 200 mls/hr IV, Zosyn 4.5 gm IV 1601: I went to check on the patient, but she was at CT. I updated her daughters. 1621: I spoke with Dr. Mann. We discussed the patients results and treatment plan. The patient will be evaluated by the [facility] for further management. 1627: I reassessed the patient at this time. She is doing well. I discussed the results and treatment plan with the patient and her daughters. I answered all pertaining questions that they had. They expressed understanding and verbalized agreement. Medical Decision Triage Nursing notes reviewed. The patient's presentation and history were concerning for hypoxia and breathing difficulties. Etiologies such as pneumonia, COPD, reactive airway disease, CHF, cardiac ischemia, pulmonary embolism, pneumothorax, musculoskeletal, infections, gastrointestinal, as well as others were entertained. The patient was evaluated upon arrival. She was wheezing. She was uncomfortable. She was found to be hypoxic. Blood work, cultures, urinalysis, x-ray, CT, and ultrasounds were ordered. The patient was given a gentle fluid bolus and Solu-Medrol with a DuoNeb. She had an elevated lactate. Given her borderline tachycardia, lactate, and hypoxia she was treated for possible sepsis with vancomycin and Zosyn after cultures. The patient's CBC revealed mild leukocytosis as well as anemia. Coags and chemistry panel were unremarkable except for elevated glucose. The patient's lactate was elevated. BNP and troponin were negative. Bilateral lower extremity ultrasounds were negative. She had a CT PE study due to the significant high pretest probability and this was negative for pulmonary embolus. Questionable early infiltrate noted as well as chronic changes. The patient will need further evaluation and management in the hospital given her hypoxia and findings. Consultation was made with internal medicine. Patient was evaluated in the Emergency Room for further management. The chart was completed utilizing [employer] voice recognition software. Grammatical errors, random word insertions, pronoun errors, and incomplete sentences are an occasional consequence of this system due to software limitations, ambient noise, and hardware issues. Any formal questions or concerns about the content, text, or information contained within the body of this dictation should be directly addressed to the physician for clarification. Consults Time Called: 1619 Consulting Physician: Dr. Mann Returned Call: [address] Mann. We discussed the patients results and treatment plan. The patient will be evaluated by the [facility] for further management. Impression Primary Impression: Hypoxia Additional Impressions: Sepsis Reactive airway disease Lower extremity edema Scribe Attestation The scribe's documentation has been prepared under my direction and personally reviewed by me in its entirety. I confirm that the note above accurately reflects all work, treatment, procedures, and medical decision making performed by me. Departure Information Dispostion Being Evaluated By Hospitalist Referrals Michael De Souza M.D. (PCP) Patient Instructions [facility] Problem Qualifiers Additional Impressions: Sepsis Sepsis type: sepsis due to unspecified organism Qualified Codes: A41.9 - Sepsis, unspecified organism Reactive airway disease Asthma severity: unspecified severity Asthma complication type: with acute exacerbation Qualified Codes: J45.901 - Unspecified asthma with (acute) exacerbation Lower extremity edema Laterality: bilateral Qualified Codes: R60.0 - Localized edema
[2017-01-15] MEDS: ALBUT/IPRATROP 3MG/0.5MG NEB 3 ML VIAL INH SCH ×4 (03:03→21:11)
[2017-01-15] MEDS: NITROGLYCERIN OINT 2% 1GM PACKET EXT SCH ×4 (04:44→22:16)
[2017-01-15] MEDS: METHYLPREDNISOLONE IV 40 MG in SYRINGE 0 ML IV SCH (04:45)
[2017-01-15] MEDS: LEVOTHYROXINE 88 MCG TAB PO SCH (05:58)
[2017-01-15 07:00] LABS: BUN/CREATININE RATIO 23.8 (10-20); CALCIUM 7.3 mg/dl (8.5-10.1); CREATININE 0.94 mg/dl (0.60-1.20); MAGNESIUM 2.4 mg/dl (1.8-2.4); POTASSIUM 3.7 mmol/L (3.5-5.1)
--- NOTE | 2017-01-15 08:57 | Pulmonary Consultation ---
History General Date of Service: Jan 15, 2017. Stated Complaint: Acute Respiratory Failure W/ Hypoxia HPI The patient is a 82 year old female who presents to [facility] with complaints of Acute Respiratory Failure W/ Hypoxia. The patient's primary care provider is Michael De Souza M.D.. 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 Upon returning home on 01/09/2017 from rehabilitation [facility] she's had progressive lower extremity edema with increased shortness of breath. She was placed on Zyvox, increased her prednisone to 30 mg daily and her Lasix was doubled to 40 mg daily. She still had issues with increasing respiratory insufficiency and presented to the emergency room last evening. Currently denies: Pleurisy, chills, classic cardiac chest pain, hemoptysis, productive sputum Current Work-Up: WBC: 13K AB.45/45/93/31---3L Troponin I: WNL x2 BNP: 226 POC Lactic Acid: > 2.95 UA: WNL Microbiology: Pending Bilateral DVT: WNL CTA: No PE Small right sided pleural effusion Bilateral atelectasis no acute change Stable 4mm RUL Signs of tracheal aspiration vs. secretions Rounded atelectasis LLL Previous Work-Up: 1) EKG (10/21/16) NSR, no acute signs of ischemia 2) Abdominal US (10/23/16) mild YATES otherwise WNL 3) Thoracic CTA (10/20/16) compared to 10/17/16 a. No PE b. Small rt sided pleural effusion with infiltrates vs. ateltectasis c. LLL 6mm pulmonary nodule d. Lingular infiltrate e. Vascular congestion f. RLL infiltrate 4) ABG a. 10/23/16 7.52/27/77/23 (RA) A-a Gradient:33 (expected: 19) b. 08/27/16 7.43/46/75/30 (1.5L) A-a Gradient:48 c. 09/22/15 7.42/45/68/28 (RA) A-a Gradient:55 5) Cardiac Echo (11/30/16) a. LV: EF=65-70% b. RV: WNL c. PASP: 30mmHg d. IVC variation: WNL 6) Video Swallow (09/19/2015) a. penetration with a trace amount of aspiration with thin liquids b. limited hypopharyngeal and oral motility c. limited exam as the patient refused to cooperate 7) SNIFF (07/28/2016) a. Normal excursion of both curtis-diaphragms b. No evidence of right curtis-diaphragm paralysis 8) PFT (04/28/16) read by Dewayne storm reveals normal air flow b. no significant change post bronchoscdilator d. Lung volumes are WNL other than a mild increased RV e. DLCO/VA: 78% Historian: patient, EMS Review of Systems Constitutional: reports: weakness Eyes: reports: no symptoms ENT: reports: no symptoms Cardiovascular: reports: no symptoms Respiratory: reports: UMANA, cough Genitourinary - Female: reports: no symptoms Musculoskeletal: reports: myalgias Integumentary: reports: no symptoms Neurologic: reports: no symptoms Psychiatric: reports: anxiety, depression Endocrine: no symptoms Hematologic / Lymphatic: no symptoms Allergic / Immunologic: no symptoms Past Medical History Past Medical History: 1. 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 Lt Rib Fx s/p fall 4. Mild Asthma 5. Sever DJD 6. GERD 7. CFI 8. Fibromyalgia 9. Hx MRSA Cellulitis 10. OA 11. Chronic Rhinitis 12. Hyperlipidemia 13. Benign colonic polyps 14. Secondary Hypothyroidism-Ca 15. Vaginal wall prolapse with cystocele 16. Thyroid CA 17. Childbirth x3 18.Concussion fall 2016 19. 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 Depression 21. Microbiology a. Urine: E-Coli, Enterococcus Faecalis, Lactobacillus, Citrobacter b. Blood: Propionibacterium Acnes c. BAL (11/28/16) MRSA Past Medical History: anxiety, asthma, depression, hypothyroidism, osteoarthritis, urinary tract infection, other Past Surgical History: 1. Cervical and lumbar arthrodesis 2. Hysterectomy 3. Knee arthroplasty 4. Right and Left shoulder replacements 5. Subtotal thyroidectomy-Ca 6. Tonsil/adenoidectomy 7. Vaginal sling 8. Adrenalectomy 9. Appendectomy 10. Lt cataract surgery 11. Thoracolumbar surgery 12. Harpreet-Fundoplication 13. Right Curtis-diaphragmatic plication 08/26/16 14. Cervical fusion Past Surgical History: adenoidectomy, appendectomy, hysterectomy, orthopedic surgery, spinal surgery, thyroidectomy, TKR, tonsillectomy Family History Diabetes mellitus FH: cancer FH: gallbladder disease FH: heart disease FH: lung disease Hypertension Kidney disease or stones Social History Hx Tobacco Use In Past Year?: No Smoking Status: Never Smoker Alcohol: no current use Drug Use: none Marital status: Housing status: lives with family (daughter) Occupational Status: retired Immunizations History of Influenza Vaccine: N/A Influenza Vaccine Date: Jun 18, 2012 History of Tetanus Vaccine?: Yes Tetanus Immunization Date: Mar 18, 2004 History of Pneumococcal: Yes Pneumococcal Date: May 31, 2010 History of Hepatitis B Vaccine: No History of MDRO History of MDRO: Yes Type of MDRO: MRSA Allergies Coded Allergies: Pneumococcal Vaccine (Verified Allergy, Severe, SHORTNESS OF BREATH, ) Erythromycin (Verified Allergy, Mild, RASH, 01/14/17) Adhesives (Verified Allergy, Unknown, TAPE-REDNESS, BLISTERS, 01/14/17) Metronidazole (Verified Allergy, Unknown, skin rash, 01/14/17) allergic to generic form Phenazopyridine (Verified Allergy, Unknown, abdominal pain/rash, 01/14/17) Polymyxin B (Verified Allergy, Unknown, 01/14/17) Salicylates (Verified Allergy, Unknown, pt states rash with ASA 325 but not ASA 81mg, 01/14/17) Sulfa Antibiotics (Verified Allergy, Unknown, "SULFA DRUGS" = RASH, ) Tetracycline (Verified Allergy, Unknown, RASH, 01/14/17) Morphine (Verified Adverse Reaction, Intermediate, urinary retention - oral morphine only, 01/14/17) Diltiazem (Verified Adverse Reaction, Mild, FLUID RETENTION, 01/14/17) Metoclopramide (Verified Adverse Reaction, Mild, TREMORS, 01/14/17) Bacitracin (Verified Adverse Reaction, Unknown, "MAKES IT WORSE"-OK IF NOT OTC MEDICATION, 01/14/17) OKAY IF NOT OVER THE COUNTER MEDICATION Current Medications Reported Home Medications Medications Dose Route/Sig Max Daily Dose Days Date Category Hydromet (Hydrocodone Bit/Homatropine Methylb) 1 Ml Syrp 1 Dose PO DIRECTED PRN 9 01/14/17 Reported Zyvox (Linezolid) 600 Mg Tab 600 Mg PO BID 01/14/17 Reported Neurontin (Gabapentin) 300 Mg Cap 300 Mg PO BID 01/14/17 Reported Fioricet (Rtigwqjhlo-Dwguaueccaors-Avipd) 1 Cap Cap 1 Cap PO Q4H PRN 01/14/17 Reported Celexa (Citalopram Hydrobromide) 20 Mg Tab 30 Mg PO QAM 01/14/17 Reported Lasix (Furosemide) 20 Mg Tab 20 Mg PO QAM 01/14/17 Reported Mucinex Maximum Strength (Guaifenesin) 1,200 Mg Tab 1 Tab PO DAILY PRN 15 01/14/17 Reported Combivent Respimat (Ipratropium-Albuterol) 1 Aer Aer 1 Puffs INH QID 01/14/17 Reported K-Tab (Potassium Chloride) 20 Meq Tab 20 Meq PO QAM 01/14/17 Reported Senokot S (Senna/Docusate Sodium) 1 Tab Tab 1 Tab PO QAM PRN 01/14/17 Reported Vitamin D3 (Cholecalciferol) 1,000 Inter.unit Tab 1,000 Units PO QAM 01/14/17 Reported Prilosec (Omeprazole) 40 Mg Cap 40 Mg PO QAM 01/14/17 Reported Ketorolac Tromethamine (Ketorolac Tromethamine (Ophth)) 0.5 % Renetta 1 Drop OPL QID 10/20/16 Reported Duoneb (Ipratropium-Albuterol) 3 Ml Nebu 1 Treatment INH Q4H PRN 10/20/16 Reported Brovana (Arformoterol Tartrate) 15 Mcg/2 Ml Neb 15 Mcg INH BID PRN 10/20/16 Reported Systane (Polyethylene Glycol-Propylene) 1 Renetta Renetta 1 Drops OPR QID 06/30/16 Reported Pred Forte 1% Oph (Prednisolone Acetate (Ophth)) 1 % Nicole 1 Drops OPL QID 06/30/16 Reported Levothyroxine Sodium 88 Mcg Tab 88 Mcg PO DAILY 90 05/09/16 Reported Requip (Ropinirole HCl) 0.25 Mg Tab 0.25-0.5 Mg PO HS PRN 04/24/16 Reported Tylenol Arthritis Ext Rel (Acetaminophen) 650 Mg Cplt 650 Mg PO Q4H PRN 02/26/16 Reported Spiriva Respimat (Tiotropium [place] Monohydrate) 2.5 Mcg/Act Spr 2 Puffs INH DAILY 02/26/16 Reported Calcium Carbonate 1,250 Mg Tab 1 Tab PO HS 02/26/16 Reported Midodrine Hcl 2.5 Mg Tab 1 Tab PO TID 02/26/16 Reported Vitamin B-12 (Cyanocobalamin) 500 Mcg Tab 1,000 Mcg PO QAM 12/20/15 Reported Zocor (Simvastatin) 20 Mg Tab 20 Mg PO HS 12/20/15 Reported Riboflavin 400 Mg Tab 1 Tab PO QAM 12/01/15 Reported Kp Melatonin (Melatonin) 3 Mg Tab 1 Tab PO HS 12/01/15 Reported Linzess (Linaclotide) 290 Mcg Cap 1 Cap PO QAM PRN 10/27/15 Reported Physical Physical Exam Vital Signs: Date Time Temp Pulse Resp B/P Pulse Ox O2 Delivery O2 Flow Rate FiO2 01/15/17 07:47 36.5 97 28 141/89 95 Nasal Cannula 2.0 01/15/17 07:10 86 18 99 Nasal Cannula 3.0 01/15/17 04:00 94 Nasal Cannula 3.0 01/15/17 03:11 37.0 98 20 160/79 94 Nasal Cannula 3.0 01/15/17 02:00 91 18 96 Nasal Cannula 3.0 01/15/17 00:00 97 Nasal Cannula 3.0 01/14/17 23:15 36.7 91 22 153/77 97 Nasal Cannula 3.0 01/14/17 21:31 97 22 97 Nasal Cannula 3.0 01/14/17 19:26 96 Nasal Cannula 3.0 01/14/17 19:17 37.0 91 22 173/82 01/14/17 18:25 89 22 183/88 95 Room Air 01/14/17 17:26 91 22 158/88 94 Nasal Cannula 3.0 01/14/17 16:22 98 20 137/103 94 Room Air 01/14/17 15:12 97 24 143/83 96 Nebulizer 01/14/17 14:35 103 01/14/17 14:24 37.3 100 24 173/90 93 Nasal Cannula 3.0 01/14/17 14:24 93 Nasal Cannula 3.0 01/14/17 14:24 87 Room Air General Appearance: uncomfortable, obese Head: NORMOCEPHALIC, ATRAUMATIC Eyes: PERRLA, NO DISCHARGE, EOMI, SCLERAE NORMAL, CONJUNCTIVAE NORMAL ENT: NORMAL EAR EXAM, NORMAL NASAL EXAM, NORMAL MOUTH EXAM, NORMAL THROAT EXAM , NORMAL DENTAL EXAM, NORMAL SINUS EXAM Neck: NORMAL RANGE OF MOTION, other (upper airway rhonchi appreciated) Respiratory: other (decreased breath sounds right hemithorax with minimal rhonchi appreciated bilaterally) Cardiovasular: REGULAR RATE/RHYTHM, NORMAL S1S2, NO M/G/R, NO MURMUR, NO GALLOP Abdomen: NON TENDER, NORMAL BOWEL SOUNDS, NO REBOUND, NO MASSES, NO GUARDING Genitourinary - Female: EXTERNAL GENITALIA NORMAL Back: NORMAL INSPECTION, NO MIDLINE TENDERNESS, NO CVA TENDERNESS, NO PARAVERTEBRAL TTP Upper Extremities: NO EDEMA, NO DEFORMITY, NORMAL ROM Lower Extremities: edema Edema: Bilateral LE (2+) Pulses: carotid (R) (2+), carotid (L) (2+), posterior tibial (R), posterior tibial (L) (2+) Neuro: ALERT, NORMAL SENSATION, NORMAL CEREBELLAR EXAM Reflexes: biceps (R) (2+), bicpes (L) (2+), achilles (R) (2+), achilles (L) (2+ ) Babinski Testing: right (downgoing), left (downgoing) Psychiatric: NORMAL AFFECT, NO SUICIDAL IDEATION, CONTRACTS FOR SAFETY Diagnostics Labs Results Past 24 Hours Test 01/14/17 15:07 01/14/17 15:10 01/14/17 15:50 01/14/17 19:36 Range/Units White Blood Count 12.96 4.8-10.8 K/uL Red Blood Count 3.42 4.2-5.4 M/uL Hemoglobin 9.9 12.0-16.0 g/dL Hematocrit 32.9 37-47 % Mean Corpuscular Volume 96.2 80-100 fL Mean Corpuscular Hemoglobin 28.9 25-34 pg Mean Corpuscular Hemoglobin Concent 30.1 32-36 g/dl Platelet Count 213 130-400 K/uL Mean Platelet Volume 9.3 7.4-10.4 fL Neutrophils (%) (Auto) 83.1 % Lymphocytes (%) (Auto) 8.7 % Monocytes (%) (Auto) 6.6 % Eosinophils (%) (Auto) 0.2 % Basophils (%) (Auto) 0.2 % Neutrophils # (Auto) 10.78 1.4-6.5 K/uL Lymphocytes # (Auto) 1.13 1.2-3.4 K/uL Monocytes # (Auto) 0.86 0.11-0.59 K/uL Eosinophils # (Auto) 0.02 0-0.5 K/uL Basophils # (Auto) 0.02 0-0.2 K/uL RDW Standard Deviation 68.2 36.4-46.3 fL RDW Coefficient of Variation 19.5 11.5-14.5 % Immature Granulocyte % (Auto) 1.2 % Immature Granulocyte # (Auto) 0.15 0.00-0.02 K/uL Nucleated RBC Absolute Count (auto) 0.04 0-0 K/uL Nucleated Red Blood Cells % 0.3 % Prothrombin Time 9.8 9.0-12.0 SECONDS Prothromb Time International Ratio 0.9 0.9-1.1 Activated Partial Thromboplast Time 25.6 21.0-31.0 SECONDS Partial Thromboplastin Ratio 1.0 Arterial Blood pH 7.45 7.35-7.45 Arterial Blood Partial Pressure CO2 45 35-46 mmHg Arterial Blood Partial Pressure O2 93 80-95 mm/Hg Arterial Blood HCO3 31 19-24 mmol/L Arterial Blood Oxygen Saturation 96.7 90-95 % Arterial Blood Base Excess 6.2 -9-1.8 mEq/L Arterial Blood Gas Delivery 3L John Test POS POS Sodium Level 140 136-145 mmol/L Potassium Level 4.1 3.5-5.1 mmol/L Chloride Level 101 98-107 mmol/L Carbon Dioxide Level 29 21-32 mmol/L Anion Gap 10.0 3-11 mmol/L Blood Urea Nitrogen 23 7-18 mg/dl Creatinine 0.96 0.60-1.20 mg/dl Est Creatinine Clear Calc Drug Dose 51.9 ml/min Estimated GFR () 64.7 Estimated GFR (Non- 55.9 BUN/Creatinine Ratio 23.9 10-20 Random Glucose 202 70-99 mg/dl Calcium Level 7.2 8.5-10.1 mg/dl Magnesium Level 2.2 1.8-2.4 mg/dl Total Bilirubin 0.4 0.2-1 mg/dl Direct Bilirubin < 0.1 0-0.2 mg/dl Aspartate Amino Transf (AST/SGOT) 23 15-37 U/L Alanine Aminotransferase (ALT/SGPT) 44 12-78 U/L Alkaline Phosphatase 70 45-117 U/L Total Creatine Kinase 73 26-192 U/L Creatine Kinase MB 1.8 0.5-3.6 ng/ml Creatine Kinase MB Ratio 2.5 0-3.0 Troponin I < 0.015 0-0.045 ng/ml Pro-B-Type Natriuretic Peptide 226 0-1800 pg/ml Total Protein 6.6 6.4-8.2 gm/dl Albumin 3.1 3.4-5.0 gm/dl Lipase 98 73-393 U/L Procalcitonin 0.09 0-0.5 ng/ml Thyroid Stimulating Hormone (TSH) 1.010 0.300-4.500 uIu/ml Bedside Lactic Acid Venous 2.95 0.90-1.70 mmol/L Urine Color DK YELLOW Urine Appearance CLEAR CLEAR Urine pH 5.0 4.5-7.5 Urine Specific Bivins 1.014 1.000-1.030 Urine Protein NEG NEG Urine Glucose (UA) NEG NEG Urine Ketones NEG NEG Urine Occult Blood TRACE NEG Urine Nitrite NEG NEG Urine Bilirubin NEG NEG Urine Urobilinogen NEG NEG Urine Leukocyte Esterase NEG NEG Urine WBC (Auto) 0 0-5 /hpf Urine RBC (Auto) 0-4 0-4 /hpf Urine Hyaline Casts (Auto) 0 0-5 /lpf Urine Epithelial Cells (Auto) 0-5 0-5 /lpf Urine Bacteria (Auto) NEG NEG Bedside Glucose 230 70-90 mg/dl Test 01/14/17 21:54 01/14/17 23:50 01/15/17 05:54 01/15/17 06:27 Range/Units Bedside Glucose 274 171 70-90 mg/dl Troponin I < 0.015 0-0.045 ng/ml Sodium Level 143 136-145 mmol/L Potassium Level 3.7 3.5-5.1 mmol/L Chloride Level 99 98-107 mmol/L Carbon Dioxide Level 36 21-32 mmol/L Anion Gap 8.0 3-11 mmol/L Blood Urea Nitrogen 22 7-18 mg/dl Creatinine 0.94 0.60-1.20 mg/dl Est Creatinine Clear Calc Drug Dose 51.1 ml/min Estimated GFR () 66.4 Estimated GFR (Non- 57.3 BUN/Creatinine Ratio 23.8 10-20 Random Glucose 163 70-99 mg/dl Calcium Level 7.3 8.5-10.1 mg/dl Magnesium Level 2.4 1.8-2.4 mg/dl Microbiology Results 01/14/17 Blood Culture, Received Pending 01/14/17 Blood Culture, Received Pending 01/14/17 Urine Culture, Received Pending Diagnostic Radiology CTA: No PE Small right sided pleural effusion Bilateral atelectasis no acute change Stable 4mm RUL Signs of tracheal aspiration vs. secretions Rounded atelectasis LLL EKG EKG (10/21/16) NSR, no acute signs of ischemia Impression Assessment and Plan 82-year-old female with acute on chronic respiratory insufficiency #1 aspiration: Patient's clinical history, radiographs, pulmonary function tests and CT angios performed during this hospitalization are highly suggestive of chronic aspiration. She also had a video swallow performed 09/19/2015 which penetration with a trace amount of aspirated liquids and hypopharyngeal and oral limited motility. This time we'll place the patient nothing by mouth move her to the intensive care unit and perform bronchoscopic evaluation mechanical clearance of her airway. We'll have to wait over the next 4-6 hours as the patient was eating her breakfast as I walked in. #2 ID: as the patient does have history of MRSA pneumonia and high likelihood current aspiration. Due to this I believe we should continue: Nasal isn't switch cefepime to Zosyn for more anaerobic coverage. #3 Asthma: Patient is been diagnosed with asthma but no definitive findings via pulmonary function studies. As the patient most likely has aspiration induced respiratory insufficiency will decrease the steroids to 20 mg twice a day at this time.
[2017-01-15] MEDS: PrednisoLONE ACET 1% OP SUSP 5 ML BTL OPL SCH ×4 (09:18→22:06)
[2017-01-15] MEDS: KETOROLAC 0.5% OP SOLN 3 ML BTL OPL SCH ×4 (09:18→22:06)
[2017-01-15] MEDS: CHOLECALCIFEROL 1000 INTER.UNIT TAB PO SCH (09:19)
[2017-01-15] MEDS: GUAIFENESIN 600 MG TABCR PO SCH ×2 (09:19→22:05)
[2017-01-15] MEDS: GABAPENTIN 300 MG CAP PO SCH ×2 (09:19→22:05)
[2017-01-15] MEDS: CYANOCOBALAMIN 500 MCG TAB (VIT B-12) PO SCH (09:19)
[2017-01-15] MEDS: POTASSIUM CHLORIDE 20 MEQ TABCR PO SCH (09:19)
[2017-01-15] MEDS: MIDODRINE 2.5 MG TAB PO SCH ×3 (09:19→22:05)
[2017-01-15] MEDS: LINEZOLID 600 MG TAB PO SCH ×2 (09:19→22:04)
[2017-01-15] MEDS: PANTOprazole SOD 40 MG TAB PO SCH (09:19)
[2017-01-15] MEDS: TIOTROPIUM BROMIDE 5 PUFF/90 MCG INH INH SCH (09:20)
[2017-01-15] MEDS ORDERED: PIPERACILL/TAZOBAC CONSULT ACTIVE PRN (09:30)
[2017-01-15] MEDS: INSULIN ASPART 100 UNITS/ML 3 ML PEN SC SCH ×4 (09:31→22:09)
[2017-01-15] MEDS ORDERED: PIPERACILL/TAZOBAC IV 4.5 GM in DEXTROSE 5% 100ML IV ONE (10:00)
[2017-01-15] MEDS ORDERED: FUROSEMIDE INJ 40 MG in SYRINGE 0 ML IV ONE (11:14)
[2017-01-15] MEDS: ACETAMINOPHEN 325 MG TAB PO PRN ×2 (11:23→22:07)
[2017-01-15] MEDS ORDERED: PIPERACILL/TAZOBAC IV 3.375 GM in DEXTROSE 5% 100ML 100 ML IV SCH (12:00)
--- NOTE | 2017-01-15 13:49 | Progress Note ---
Subjective Date of Service: Jan 15, 2017. Subjective Pt evaluation today including: conversation w/ patient, physical exam, lab review, review of studies, review of inpatient medication list Still not feeling well. Breathing slightly improved. Tolerated breakfast this morning. Now NPO for bronch this afternoon. Problem List Medical Problems: (1) Cervical strain Status: Acute (2) Fall Status: Acute (3) Head injury Status: Acute (4) Head injury Status: Acute (5) Hip pain Status: Acute (6) Hypoxia Status: Acute (7) Hypoxia Status: Acute (8) Lower extremity edema Status: Acute (9) Pneumonia Status: Acute (10) Reactive airway disease Status: Acute (11) Sepsis Status: Acute (12) Syncope Status: Acute (13) Traumatic compression fracture of third thoracic vertebra Status: Acute Review of Systems All Other Systems: Reviewed and Negative Medications Acetaminophen (Tylenol Tab) 650 mg Q4H PRN PO Last administered on 01/15/17 11:23; Admin Dose 650 MG; Start 01/14/17 at 18:00; Stop 02/13/17 at 17:59 Acetaminophen/ Butalbital/ Caffeine (Fioricet Tab) 1 tab Q4H PRN PO; Start at 18:00; Stop 02/13/17 at 17:59 Al Hydrox/Mg Hydrox/Simethicone (Maalox Max Susp) 15 ml Q4H PRN PO; Start 01/14 at 18:00; Stop 02/13/17 at 17:59 Albuterol/ Ipratropium (Duoneb) 3 ml Q6R INH Last administered on 01/15/17 14: 07; Admin Dose 3 ML; Start 01/14/17 at 21:00; Stop 02/13/17 at 20:59 Calcium Carbonate (oS-Misael 500 TAB) 1,250 mg DAILY@1800 PO; Start 01/15/17 at 18: 00; Stop 02/14/17 at 17:59 Cholecalciferol (Vitamin D Tab) 1,000 inter.unit QAM PO Last administered on 09:19; Admin Dose 1,000 INTER.UNIT; Start 01/15/17 at 09:00; Stop at 08:59 Citalopram Hydrobromide (celeXA TAB) 30 mg QAM PO; Start 01/18/17 at 09:00; Stop 02/17/17 at 08:59 Cyanocobalamin (Vitamin B-12 Tab) 1,000 mcg QAM PO Last administered on 09:19; Admin Dose 1,000 MCG; Start 01/15/17 at 09:00; Stop 02/14/17 at 08: 59 Enoxaparin Sodium (Lovenox Inj) 40 mg Q24H SC Last administered on 01/14/17 21: 14; Admin Dose 40 MG; Start 01/14/17 at 21:00; Stop 02/13/17 at 20:59 Furosemide/Syringe (Lasix Inj/ Syringe) 4 ml @ 2 mls/min DAILY IV; Start at 09:00; Stop 02/15/17 at 08:59 Gabapentin (Neurontin Cap) 300 mg BID PO Last administered on 01/15/17 09:19; Admin Dose 300 MG; Start 01/14/17 at 21:00; Stop 02/13/17 at 20:59 Guaifenesin (Mucinex Contr Rel Tab) 1,200 mg Q12 PO Last administered on 09:19; Admin Dose 1,200 MG; Start 01/14/17 at 21:00; Stop 02/13/17 at 20:59 Insulin Aspart (novoLOG ASPART) SLIDING SCALE G... ACHS SC Last administered on 01/15/17 11:19; Admin Dose 2 UNITS; Start 01/14/17 at 21:00; Stop 02/13/17 at 20:59 Insulin Glargine (Lantus Solostar Pen) 10 unit HS SC Last administered on 21:21; Admin Dose 10 UNIT; Start 01/14/17 at 21:00; Stop 02/13/17 at 20:59 Ioversol (Optiray 320) 125 ml UD PRN IV; Start 01/14/17 at 14:45; Stop 01/18/17 at 14:44 Ketorolac Tromethamine (Acular 0.5 Oph Soln) 1 drops QID OPL Last administered on 01/15/17 14:37; Admin Dose 1 DROPS; Start 01/14/17 at 21:00; Stop 02/13/17 at 20:59 Levothyroxine Sodium (Synthroid Tab) 88 mcg DAILYBB PO Last administered on 01/15 05:58; Admin Dose 88 MCG; Start 01/15/17 at 06:00; Stop 02/14/17 at 05:59 Linezolid (Zyvox Tab) 600 mg BID PO Last administered on 01/15/17 09:19; Admin Dose 600 MG; Start 01/14/17 at 21:00; Stop 01/17/17 at 20:59 Magnesium Hydroxide (Milk Of Magnesia Susp) 30 ml Q12H PRN PO; Start 01/14/17 at 18:00; Stop 02/13/17 at 17:59 Methylprednisolone Sodium Succinate 20 mg/Syringe 0.32 ml @ 1.5 mls/min BID@ 0400,1600 IV; Start 01/15/17 at 16:00; Stop 02/14/17 at 15:59 Metoprolol Succinate 12.5 mg 12.5 mg HS PO Last administered on 01/14/17 23:19 ; Admin Dose 12.5 MG; Start 01/14/17 at 22:00; Stop 02/13/17 at 21:59 Midodrine (Proamatine Tab) 2.5 mg TID PO Last administered on 01/15/17 14:37; Admin Dose 2.5 MG; Start 01/14/17 at 21:00; Stop 02/13/17 at 20:59 Nitroglycerin (Nitroglycerin 2% Oint) 0.5 inch Q6H EXT Last administered on 01/15 10:42; Admin Dose 0.5 INCH; Start 01/14/17 at 22:00; Stop 02/13/17 at 21: 59 Nitroglycerin (Nitrostat Tab) 0.4 mg UD PRN SL; Start 01/14/17 at 18:00; Stop 02/13/17 at 17:59 Ondansetron HCl (Zofran Inj) 4 mg Q6H PRN IV; Start 01/14/17 at 18:00; Stop at 17:59 Pantoprazole Sodium (Protonix Tab) 40 mg QAM PO Last administered on 01/15/17 09:19; Admin Dose 40 MG; Start 01/15/17 at 09:00; Stop 02/14/17 at 08:59 Piperacillin Sod/ Tazobactam Sod 1 ea 1 ea UD PRN N/A; Start 01/15/17 at 09:30 ; Stop 02/14/17 at 09:29 Piperacillin Sod/ Tazobactam Sod/ Dextrose (Zosyn Iv/D5 100ml) 120 ml @ 30 mls/ hr Q8H IV; Start 01/15/17 at 16:00; Stop 01/22/17 at 15:59 Polyethylene (Miralax Powder Packet) 17 gm DAILY PRN PO; Start 01/14/17 at 18: 00; Stop 02/13/17 at 17:59 Potassium Chloride (Klor-Con Tab) 20 meq QAM PO Last administered on 01/15/17 09:19; Admin Dose 20 MEQ; Start 01/15/17 at 09:00; Stop 02/14/17 at 08:59 Prednisolone Acetate (Pred Forte 1% Oph Susp) 1 drops QID OPL Last administered on 01/15/17 14:36; Admin Dose 1 DROPS; Start 01/14/17 at 21:00; Stop 02/13/17 at 20:59 Ropinirole HCl (Requip Tab) 0.5 mg HS PO Last administered on 01/14/17 21:15; Admin Dose 0.5 MG; Start 01/14/17 at 21:00; Stop 02/13/17 at 20:59 Senna/Docusate Sodium (Senokot S Tab) 1 tab QAM PRN PO; Start 01/14/17 at 18:00 ; Stop 02/13/17 at 17:59 Simvastatin (Zocor Tab) 20 mg HS PO Last administered on 01/14/17 21:13; Admin Dose 20 MG; Start 01/14/17 at 21:00; Stop 02/13/17 at 20:59 Tiotropium [place] (Spiriva Handihaler Inhaler) 1 puff QAM INH Last administered on 01/15/17 09:20; Admin Dose 1 PUFF; Start 01/15/17 at 09:00; Stop 02/14/17 at 08:59 Objective Vital Signs Date Time Temp Pulse Resp B/P Pulse Ox O2 Delivery O2 Flow Rate FiO2 01/15/17 12:00 96 Nasal Cannula 3.0 01/15/17 11:16 36.6 85 18 184/104 96 Nasal Cannula 2.0 01/15/17 08:00 96 Nasal Cannula 3.0 01/15/17 07:47 36.5 97 28 141/89 95 Nasal Cannula 2.0 01/15/17 07:10 86 18 99 Nasal Cannula 3.0 01/15/17 04:00 94 Nasal Cannula 3.0 01/15/17 03:11 37.0 98 20 160/79 94 Nasal Cannula 3.0 01/15/17 02:00 91 18 96 Nasal Cannula 3.0 01/15/17 00:00 97 Nasal Cannula 3.0 01/14/17 23:15 36.7 91 22 153/77 97 Nasal Cannula 3.0 01/14/17 21:31 97 22 97 Nasal Cannula 3.0 01/14/17 19:26 96 Nasal Cannula 3.0 01/14/17 19:17 37.0 91 22 173/82 01/14/17 18:25 89 22 183/88 95 Room Air 01/14/17 17:26 91 22 158/88 94 Nasal Cannula 3.0 01/14/17 16:22 98 20 137/103 94 Room Air 01/14/17 15:12 97 24 143/83 96 Nebulizer 01/14/17 14:35 103 01/14/17 14:24 37.3 100 24 173/90 93 Nasal Cannula 3.0 01/14/17 14:24 93 Nasal Cannula 3.0 01/14/17 14:24 87 Room Air Physical Exam Comments: nad, arousable and answering questions appropriately anicteric s1 s2 rrr, no murmurs appreciated decreased breath sounds, bibasilar rales, no wheezing abd soft ntnd +BS 1+ BLE edema Laboratory Results Last 24 Hours Test 01/14/17 15:07 01/14/17 15:10 01/14/17 15:50 01/14/17 19:36 White Blood Count 12.96 K/uL Red Blood Count 3.42 M/uL Hemoglobin 9.9 g/dL Hematocrit 32.9 % Mean Corpuscular Volume 96.2 fL Mean Corpuscular Hemoglobin 28.9 pg Mean Corpuscular Hemoglobin Concent 30.1 g/dl Platelet Count 213 K/uL Mean Platelet Volume 9.3 fL Neutrophils (%) (Auto) 83.1 % Lymphocytes (%) (Auto) 8.7 % Monocytes (%) (Auto) 6.6 % Eosinophils (%) (Auto) 0.2 % Basophils (%) (Auto) 0.2 % Neutrophils # (Auto) 10.78 K/uL Lymphocytes # (Auto) 1.13 K/uL Monocytes # (Auto) 0.86 K/uL Eosinophils # (Auto) 0.02 K/uL Basophils # (Auto) 0.02 K/uL RDW Standard Deviation 68.2 fL RDW Coefficient of Variation 19.5 % Immature Granulocyte % (Auto) 1.2 % Immature Granulocyte # (Auto) 0.15 K/uL Nucleated RBC Absolute Count (auto) 0.04 K/uL Nucleated Red Blood Cells % 0.3 % Prothrombin Time 9.8 SECONDS Prothromb Time International Ratio 0.9 Activated Partial Thromboplast Time 25.6 SECONDS Partial Thromboplastin Ratio 1.0 Arterial Blood pH 7.45 Arterial Blood Partial Pressure CO2 45 mmHg Arterial Blood Partial Pressure O2 93 mm/Hg Arterial Blood HCO3 31 mmol/L Arterial Blood Oxygen Saturation 96.7 % Arterial Blood Base Excess 6.2 mEq/L Arterial Blood Gas Delivery 3L John Test POS Sodium Level 140 mmol/L Potassium Level 4.1 mmol/L Chloride Level 101 mmol/L Carbon Dioxide Level 29 mmol/L Anion Gap 10.0 mmol/L Blood Urea Nitrogen 23 mg/dl Creatinine 0.96 mg/dl Est Creatinine Clear Calc Drug Dose 51.9 ml/min Estimated GFR () 64.7 Estimated GFR (Non- 55.9 BUN/Creatinine Ratio 23.9 Random Glucose 202 mg/dl Calcium Level 7.2 mg/dl Magnesium Level 2.2 mg/dl Total Bilirubin 0.4 mg/dl Direct Bilirubin < 0.1 mg/dl Aspartate Amino Transf (AST/SGOT) 23 U/L Alanine Aminotransferase (ALT/SGPT) 44 U/L Alkaline Phosphatase 70 U/L Total Creatine Kinase 73 U/L Creatine Kinase MB 1.8 ng/ml Creatine Kinase MB Ratio 2.5 Troponin I < 0.015 ng/ml Pro-B-Type Natriuretic Peptide 226 pg/ml Total Protein 6.6 gm/dl Albumin 3.1 gm/dl Lipase 98 U/L Procalcitonin 0.09 ng/ml Thyroid Stimulating Hormone (TSH) 1.010 uIu/ml Bedside Lactic Acid Venous 2.95 mmol/L Urine Color DK YELLOW Urine Appearance CLEAR Urine pH 5.0 Urine Specific [place] 1.014 Urine Protein NEG Urine Glucose (UA) NEG Urine Ketones NEG Urine Occult Blood TRACE Urine Nitrite NEG Urine Bilirubin NEG Urine Urobilinogen NEG Urine Leukocyte Esterase NEG Urine WBC (Auto) 0 /hpf Urine RBC (Auto) 0-4 /hpf Urine Hyaline Casts (Auto) 0 /lpf Urine Epithelial Cells (Auto) 0-5 /lpf Urine Bacteria (Auto) NEG Bedside Glucose 230 mg/dl Test 01/14/17 21:54 01/14/17 23:50 01/15/17 05:54 01/15/17 06:27 Bedside Glucose 274 mg/dl 171 mg/dl Troponin I < 0.015 ng/ml Sodium Level 143 mmol/L Potassium Level 3.7 mmol/L Chloride Level 99 mmol/L Carbon Dioxide Level 36 mmol/L Anion Gap 8.0 mmol/L Blood Urea Nitrogen 22 mg/dl Creatinine 0.94 mg/dl Est Creatinine Clear Calc Drug Dose 51.1 ml/min Estimated GFR () 66.4 Estimated GFR (Non- 57.3 BUN/Creatinine Ratio 23.8 Random Glucose 163 mg/dl Calcium Level 7.3 mg/dl Magnesium Level 2.4 mg/dl Test 01/15/17 10:31 Bedside Glucose 189 mg/dl Assessment and Plan 1. Acute diastolic CHF - would given lasix 20mg IV today - re-assess and consider converting to oral lasix 40 mg by tomorrow AM if responds adequately - recent echo 11/2016 with preserved EF - cont meotprolol and statin 2. Aspiration pneumonia/itis - known to have aspirations - CT consistent with this - pulmonary consulted and will bring her to bronch later today - keep NPO - swallow evaluation - on zyvox for MRSA pneumonia and zosyn for aspiration coverage; hold celexa 3. Hypothyroid - cont levothyroxine 4. dvt ppx with lovenox
[2017-01-15] MEDS ORDERED: MIDAZOLAM HCL 5 MG/ML 1 ML VIAL ONE (15:29)
[2017-01-15] MEDS ORDERED: FENTANYL CITRATE INJ 50 MCG/1 ML 2 ML VIAL ONE (15:30)
[2017-01-15] MEDS ORDERED: FUROSEMIDE INJ 20 MG in SYRINGE 0 ML IV ONE (16:00)
--- NOTE | 2017-01-15 16:29 | Bronchoscopy Procedure Note ---
Bronchoscopy Procedure Note Procedure: Bronchoscopy, conscious sedation, BAL RML Consent: Obtained through the patient placed into the chart Preprocedural diagnosis: Chronic Cough Postprocedural diagnosis: Aspiration Start time: 0 End time: 1620 Total time: 10 minutes Analgesia: 2% liquid lidocaine: Via nebulizer 4% gel lidocaine: Via right naris 2% liquid lidocaine: Via bronchoscopy Sedation: Versed IV: 3 mg Fentanyl IV: 75 g Procedure: The [employer] video bronchoscope was used for this procedure Right naris/posterior naris/posterior oropharynx: Anatomically within normal limits Glottis: Anatomically within normal limits Vocal cords: Proper abduction and abduction, anatomically within normal limits Subglottis/trachea/Gayle: notable erythema along the gravity dependent/ posterior wall,diffuse mucus plugs/ oral secretions Right bronchial tree: Right mainstem bronchus: Anatomically within normal limits Right upper lobe: Anatomically within normal limits Bronchus intermedius: Anatomically within normal limits Right middle lobe: Anatomically within normal limits Right lower lobe: Anatomically within normal limits Findings: posterior wall erythema with diffuse mucus plugs/ oral secretions Left bronchial tree: Left mainstem bronchus: Anatomically within normal limits Left upper lobe: Anatomically within normal limits Lingula: Anatomically within normal limits Left lower lobe: Anatomically within normal limits Findings: posterior wall erythema with diffuse mucus plugs/ oral secretions Bronchial alveolar lavage: 60cc RML with 35cc returned Complications: None Follow-up: Return to inpatient bed
[2017-01-15] MEDS ORDERED: NURSING VERBAL MED ORDER ONE (16:30)
[2017-01-15] MEDS: PIPERACILL/TAZOBAC IV 4.5 GM in DEXTROSE 5% 100ML IV SCH (17:58)
[2017-01-15] MEDS: METHYLPREDNISOLONE IV 20 MG in SYRINGE 0 ML IV SCH (17:59)
[2017-01-15] MEDS: SIMVASTATIN 20 MG TAB PO SCH (22:04)
[2017-01-15] MEDS: CALCIUM CARBONATE 1250MG TAB PO SCH (22:04)
[2017-01-15] MEDS: METOPROLOL SUCC 25MG EXT REL TAB PO SCH (22:05)
[2017-01-15] MEDS: ROPINIROLE HCL 0.25 MG TAB PO SCH (22:05)
[2017-01-15] MEDS: ENOXAPARIN 40 MG/0.4 ML SYR SC SCH (22:06)
[2017-01-15] MEDS: INSULIN GLARGINE SOLOSTAR 100 UNITS/ML 3 ML PEN SC SCH (22:10)
[2017-01-16] VITALS (15 sets, daily range): BP systolic 145–181; BP diastolic 74–91; PULSE 79–102; TEMP 36.6–37.4; O2SAT 93–98
[2017-01-16] MEDS: PIPERACILL/TAZOBAC IV 4.5 GM in DEXTROSE 5% 100ML IV SCH ×4 (00:38→23:46)
[2017-01-16] MEDS: ALBUT/IPRATROP 3MG/0.5MG NEB 3 ML VIAL INH SCH ×4 (01:55→19:45)
[2017-01-16] MEDS: METHYLPREDNISOLONE IV 20 MG in SYRINGE 0 ML IV SCH (04:39)
[2017-01-16] MEDS: NITROGLYCERIN OINT 2% 1GM PACKET EXT SCH (04:39)
[2017-01-16] MEDS: ACETAMINOPHEN 325 MG TAB PO PRN ×3 (04:46→23:48)
[2017-01-16] MEDS: LEVOTHYROXINE 88 MCG TAB PO SCH (05:57)
[2017-01-16] MEDS: INSULIN ASPART 100 UNITS/ML 3 ML PEN SC SCH ×4 (07:00→20:38)
[2017-01-16 07:01] LABS: COMPLETE YES; IG% 1.2 %; LYMPH % 4.7 %; LYMPH ABS # 0.51 K/uL (1.2-3.4); MEAN CELL VOLUME 96.7 fL (80-100); MEAN CORPUSCULAR HEMOGLOBIN 29.6 pg (25-34); MEAN CORPUSCULAR HGB CONC 30.6 g/dl (32-36); MEAN PLATELET VOLUME 9.4 fL (7.4-10.4); MONO % 6.9 %; NEUT % 87.2 %; PLATELET COUNT 217 K/uL (130-400); RED BLOOD COUNT 3.31 M/uL (4.2-5.4)
[2017-01-16 07:47] LABS: BUN/CREATININE RATIO 25.8 (10-20); CALCIUM 8.4 mg/dl (8.5-10.1); CREATININE 0.94 mg/dl (0.60-1.20); MAGNESIUM 2.5 mg/dl (1.8-2.4); POTASSIUM 3.5 mmol/L (3.5-5.1)
--- NOTE | 2017-01-16 07:49 | PROGRESS NOTE ---
DATE: 01/16/2017 PULMONARY PROGRESS NOTE SUBJECTIVE: The patient is comfortable this morning. She states she feels better after the bronchoscopy, so even better after a significant diuresis. She states she has lost a considerable amount of weight with the diuretics. She did not sleep very well last night & is a bit tired this morning, but states respiratory status is improved. She denies cough or sputum production. With coughing, she does have some bit of right-sided chest pain that lasts about 3-5 seconds and then resolves. PHYSICAL EXAMINATION: VITAL SIGNS: Stable and she is afebrile. Blood pressure 146/74, oxygen saturation 93% on room air and she is afebrile. Weight 94.2 kilograms. She was 98.3 kilograms on the . She was 89.9 kilograms on the . She has gained a considerable amount of fluid weight and that is improving. HEENT: Unremarkable except for a small posterior pharynx with no evidence of thrush. She has a little lying soft palate and a large tongue. NECK: No neck vein distention or HJR. No adenopathy is noted. HEART: Regular rate and rhythm. LUNGS: Revealed decreased breath sounds at the bases but no rhonchi noted. ABDOMEN: Soft and obese, nontender. EXTREMITIES: She has no cyanosis, clubbing or edema. Changes consistent with osteoarthriti noted, of the hands. DATA: Bronchoscopy showed mucous obstruction in the lower lobe bronchi bilaterally. The AFB and fungal smears and BAL culture are pending. LABORATORY DATA: White count was 12.9 yesterday with hemoglobin 9.9; she does carry a history of anemia. Blood gas looked fairly good with a pH 7.45, pCO2 of 45, and pO2 of 93 on 3 liters. Glucose has been in the 139-165 range. CO2 was 26. Urinalysis was unremarkable. IMAGING DATA: CT of the chest yesterday reveals some old right-sided rib fractures and a small right-sided pleural effusion with mucous material in the trachea with 50% narrowing of the trachea and basilar densities consistent with atelectasis with some bronchial wall thickening. This would certainly be consistent with what was found by Dr. Khalil on the bronchoscopy. A small 4-mm nodule in the right apex on image 85 and is stable when compared to previous CAT scan of 11/14/2016. IMPRESSION: 1. Respiratory failure. 2. Right hemidiaphragm elevation, status post plication. Mostly respiratory insufficiency probably is related to significant fluid gain and that has improved dramatically. With her present medications, she has considerably improved. RECOMMENDATIONS: 1. At this point, I would continue to taper down the methylprednisolone and place her on prednisone 20 mg daily with a taper. 2. I continue on the antibiotics until the cultures from the bronchoscopy returns. If is still unremarkable, I believe that could be discontinued. 3. Continue on the DuoNeb 4 times daily and q. 4 hours p.r.n. and good DVT prophylaxis. 4. Increase activity. Physical therapy evaluation will be helpful. Overall, she is stable. [facility]
[2017-01-16] MEDS ORDERED: NURSING VERBAL MED ORDER ONE (11:00)
[2017-01-16] MEDS: CYANOCOBALAMIN 500 MCG TAB (VIT B-12) PO SCH (11:01)
[2017-01-16] MEDS: PANTOprazole SOD 40 MG TAB PO SCH (11:01)
[2017-01-16] MEDS: TIOTROPIUM BROMIDE 5 PUFF/90 MCG INH INH SCH (11:01)
[2017-01-16] MEDS: CHOLECALCIFEROL 1000 INTER.UNIT TAB PO SCH (11:01)
[2017-01-16] MEDS: MIDODRINE 2.5 MG TAB PO SCH ×3 (11:01→20:48)
[2017-01-16] MEDS: LINEZOLID 600 MG TAB PO SCH ×2 (11:01→20:46)
[2017-01-16] MEDS: GUAIFENESIN 600 MG TABCR PO SCH ×2 (11:02→20:47)
[2017-01-16] MEDS: GABAPENTIN 300 MG CAP PO SCH ×2 (11:02→20:48)
[2017-01-16] MEDS: POTASSIUM CHLORIDE 20 MEQ TABCR PO SCH (11:02)
[2017-01-16] MEDS: FUROSEMIDE INJ 40 MG in SYRINGE 0 ML IV SCH (11:02)
[2017-01-16] MEDS: KETOROLAC 0.5% OP SOLN 3 ML BTL OPL SCH ×4 (11:03→20:45)
[2017-01-16] MEDS: PrednisoLONE ACET 1% OP SUSP 5 ML BTL OPL SCH ×4 (11:04→20:45)
[2017-01-16 13:03] LABS: HEMATOCRIT 36.4 % (37-47)
--- NOTE | 2017-01-16 14:15 | Progress Note ---
Subjective Date of Service: January 16, 2017. Subjective Pt evaluation today including: conversation w/ patient, conversation w/ family , physical exam, chart review, lab review, review of studies, review of inpatient medication list Dry cough still present Awaiting speech/swallow eval No acute events overnight Problem List Medical Problems: (1) Cervical strain Status: Acute (2) Fall Status: Acute (3) Head injury Status: Acute (4) Head injury Status: Acute (5) Hip pain Status: Acute (6) Hypoxia Status: Acute (7) Hypoxia Status: Acute (8) Lower extremity edema Status: Acute (9) Pneumonia Status: Acute (10) Reactive airway disease Status: Acute (11) Sepsis Status: Acute (12) Syncope Status: Acute (13) Traumatic compression fracture of third thoracic vertebra Status: Acute Review of Systems Constitutional: No chills, No fever Respiratory: + cough, No sputum, No wheezing Cardiac: No chest pain, No orthopnea Abdomen: No nausea, No pain Musculoskeletal: No joint pain, No muscle pain Female : No dysuria, No urinary frequency Neurologic: No memory loss, No paralysis Objective Vital Signs Date Time Temp Pulse Resp B/P Pulse Ox O2 Delivery O2 Flow Rate FiO2 01/16/17 13:47 102 18 97 Nasal Cannula 3.0 01/16/17 12:00 96 Nasal Cannula 3.0 01/16/17 11:03 37.4 95 20 181/90 97 3.0 01/16/17 08:00 96 Nasal Cannula 3.0 01/16/17 07:34 83 16 97 Nasal Cannula 2.5 01/16/17 07:23 36.8 79 20 163/80 97 2.5 01/16/17 04:00 93 Nasal Cannula 3.0 01/16/17 03:18 36.6 88 18 146/74 93 Nasal Cannula 2.0 01/16/17 01:55 83 16 95 Nasal Cannula 3.0 01/16/17 00:00 96 Nasal Cannula 3.0 01/15/17 23:00 37.0 83 20 147/77 96 Nasal Cannula 3.0 01/15/17 20:00 96 Nasal Cannula 3.0 01/15/17 19:40 36.5 85 20 165/90 96 Nasal Cannula 3.0 01/15/17 19:35 84 18 96 Nasal Cannula 3.0 01/15/17 17:10 96 Nasal Cannula 3.0 01/15/17 16:51 89 17 151/82 97 Mask 6.0 01/15/17 16:25 93 17 151/82 96 Mask 6.0 01/15/17 16:20 93 17 168/84 93 Mask 6.0 01/15/17 16:15 93 17 156/83 93 Mask 6.0 01/15/17 16:12 92 18 153/78 93 Mask 6.0 01/15/17 16:09 93 16 151/81 93 Mask 6.0 01/15/17 16:05 106 96 147/76 94 Room Air 01/15/17 15:34 36.5 91 20 156/78 95 Nasal Cannula 3.0 Physical Exam General Appearance: WD/WN, + mild distress Neck: supple, no adenopathy Respiratory/Chest: chest non-tender, + decreased breath sounds Cardiovascular: no edema, no gallop Abdomen: non tender, soft Neurologic/Psychiatric: alert, normal mood/affect Laboratory Results Last 24 Hours Test 01/15/17 17:18 01/15/17 20:33 01/16/17 04:33 01/16/17 06:16 Bedside Glucose 167 mg/dl 165 mg/dl 144 mg/dl 139 mg/dl Test 01/16/17 06:32 01/16/17 11:21 01/16/17 12:42 White Blood Count 10.90 K/uL Red Blood Count 3.31 M/uL Hemoglobin 9.8 g/dL 11.4 g/dL Hematocrit 32.0 % 36.4 % Mean Corpuscular Volume 96.7 fL Mean Corpuscular Hemoglobin 29.6 pg Mean Corpuscular Hemoglobin Concent 30.6 g/dl Platelet Count 217 K/uL Mean Platelet Volume 9.4 fL Neutrophils (%) (Auto) 87.2 % Lymphocytes (%) (Auto) 4.7 % Monocytes (%) (Auto) 6.9 % Eosinophils (%) (Auto) 0.0 % Basophils (%) (Auto) 0.0 % Neutrophils # (Auto) 9.51 K/uL Lymphocytes # (Auto) 0.51 K/uL Monocytes # (Auto) 0.75 K/uL Eosinophils # (Auto) 0.00 K/uL Basophils # (Auto) 0.00 K/uL RDW Standard Deviation 67.2 fL RDW Coefficient of Variation 19.1 % Immature Granulocyte % (Auto) 1.2 % Immature Granulocyte # (Auto) 0.13 K/uL Sodium Level 142 mmol/L Potassium Level 3.5 mmol/L Chloride Level 100 mmol/L Carbon Dioxide Level 36 mmol/L Anion Gap 6.0 mmol/L Blood Urea Nitrogen 24 mg/dl Creatinine 0.94 mg/dl Est Creatinine Clear Calc Drug Dose 51.1 ml/min Estimated GFR () 66.4 Estimated GFR (Non- 57.3 BUN/Creatinine Ratio 25.8 Random Glucose 120 mg/dl Calcium Level 8.4 mg/dl Magnesium Level 2.5 mg/dl Bedside Glucose 106 mg/dl Assessment and Plan 1. Acute diastolic CHF - Switch to oral lasix - recent echo 11/2016 with preserved EF - cont meotprolol and statin 2. Aspiration pneumonia/itis - known to have aspirations - CT consistent with this - pulmonary consulted, bronch completed - swallow evaluation 01/16 - on zyvox for MRSA pneumonia and zosyn for aspiration coverage; hold celexa 3. Hypothyroid - cont levothyroxine 4. dvt ppx with lovenox
[2017-01-16] MEDS ORDERED: NITROGLYCERIN 2% OINTMENT 30GM TUBE EXT SCH (16:00)
[2017-01-16] MEDS: CALCIUM CARBONATE 1250MG TAB PO SCH (17:08)
[2017-01-16] MEDS: FERROUS SULFATE 325 MG TAB PO SCH (17:08)
[2017-01-16] MEDS: ROPINIROLE HCL 0.25 MG TAB PO SCH (20:46)
[2017-01-16] MEDS: SIMVASTATIN 20 MG TAB PO SCH (20:49)
[2017-01-16] MEDS: METOPROLOL SUCC 25MG EXT REL TAB PO SCH (20:49)
[2017-01-16] MEDS: ENOXAPARIN 40 MG/0.4 ML SYR SC SCH (20:51)
[2017-01-16] MEDS: INSULIN GLARGINE SOLOSTAR 100 UNITS/ML 3 ML PEN SC SCH (20:51)
[2017-01-17] VITALS (11 sets, daily range): BP systolic 133–191; BP diastolic 78–113; PULSE 74–102; TEMP 36.6–37; O2SAT 95–99
[2017-01-17] MEDS: ALBUT/IPRATROP 3MG/0.5MG NEB 3 ML VIAL INH SCH ×4 (02:23→19:58)
[2017-01-17] MEDS: LEVOTHYROXINE 88 MCG TAB PO SCH (05:56)
[2017-01-17 06:14] LABS: HEMATOCRIT 34.4 % (37-47); MEAN CELL VOLUME 97.2 fL (80-100); MEAN CORPUSCULAR HEMOGLOBIN 29.9 pg (25-34); MEAN CORPUSCULAR HGB CONC 30.8 g/dl (32-36); MEAN PLATELET VOLUME 8.8 fL (7.4-10.4); PLATELET COUNT 222 K/uL (130-400); RED BLOOD COUNT 3.54 M/uL (4.2-5.4); WHITE BLOOD COUNT 8.32 K/uL (4.8-10.8)
[2017-01-17 06:47] LABS: CREATININE 0.97 mg/dl (0.60-1.20)
[2017-01-17] MEDS: PrednisoLONE ACET 1% OP SUSP 5 ML BTL OPL SCH ×4 (08:22→21:59)
[2017-01-17] MEDS: GABAPENTIN 300 MG CAP PO SCH ×2 (08:22→22:02)
[2017-01-17] MEDS: CYANOCOBALAMIN 500 MCG TAB (VIT B-12) PO SCH (08:22)
[2017-01-17] MEDS: KETOROLAC 0.5% OP SOLN 3 ML BTL OPL SCH ×4 (08:22→21:59)
[2017-01-17] MEDS: LINEZOLID 600 MG TAB PO SCH (08:22)
[2017-01-17] MEDS: FUROSEMIDE INJ 40 MG in SYRINGE 0 ML IV SCH (08:22)
[2017-01-17] MEDS: MIDODRINE 2.5 MG TAB PO SCH ×3 (08:22→22:01)
[2017-01-17] MEDS: PANTOprazole SOD 40 MG TAB PO SCH (08:23)
[2017-01-17] MEDS: FERROUS SULFATE 325 MG TAB PO SCH ×2 (08:23→17:07)
[2017-01-17] MEDS: CHOLECALCIFEROL 1000 INTER.UNIT TAB PO SCH (08:23)
[2017-01-17] MEDS: GUAIFENESIN 600 MG TABCR PO SCH ×2 (08:23→22:00)
[2017-01-17] MEDS: POTASSIUM CHLORIDE 20 MEQ TABCR PO SCH (08:23)
[2017-01-17] MEDS: TIOTROPIUM BROMIDE 5 PUFF/90 MCG INH INH SCH (08:23)
[2017-01-17] MEDS: PIPERACILL/TAZOBAC IV 4.5 GM in DEXTROSE 5% 100ML IV SCH ×3 (08:35→23:19)
[2017-01-17] MEDS: INSULIN ASPART 100 UNITS/ML 3 ML PEN SC SCH ×4 (08:35→21:00)
[2017-01-17] MEDS ORDERED: METHYLPREDNISOLONE IV 20 MG in SYRINGE 0 ML IV SCH (09:00)
--- NOTE | 2017-01-17 09:03 | Clinical Documentation Query ---
LONNIE Fernandez : Please Document Present on Admission Status for - Aspiration pneumonia/pneumonitis as this directly impacts both medical and procedural DRG assignment. Thank you. (X ) Aspiration pneumonia/pneumonitis, POA ( ) Aspiration pneumonia/pneumonitis, not POA ( ) Other (Please explain) Thank You, Huber Campuzano RN [phone]
--- NOTE | 2017-01-17 12:20 | Progress Note ---
Subjective Date of Service: January 17, 2017. Subjective Pt evaluation today including: conversation w/ patient, physical exam, chart review, lab review, review of studies, review of inpatient medication list Resting comfortably in bed slight cough awaiting video swallow no worsening shortness of breath no incidents overnight Problem List Medical Problems: (1) Cervical strain Status: Acute (2) Fall Status: Acute (3) Head injury Status: Acute (4) Head injury Status: Acute (5) Hip pain Status: Acute (6) Hypoxia Status: Acute (7) Hypoxia Status: Acute (8) Lower extremity edema Status: Acute (9) Pneumonia Status: Acute (10) Reactive airway disease Status: Acute (11) Sepsis Status: Acute (12) Syncope Status: Acute (13) Traumatic compression fracture of third thoracic vertebra Status: Acute Review of Systems Constitutional: No chills, No fever Respiratory: + cough, + shortness of breath, No sputum Cardiac: No chest pain, No orthopnea Abdomen: No nausea, No pain Musculoskeletal: No joint pain, No muscle pain Female : No dysuria, No urinary frequency Neurologic: No memory loss, No paralysis Objective Vital Signs Date Time Temp Pulse Resp B/P Pulse Ox O2 Delivery O2 Flow Rate FiO2 01/17/17 11:07 37.0 91 20 154/89 95 2.0 01/17/17 08:00 Nasal Cannula 3.0 01/17/17 07:26 37.0 74 18 191/113 99 3.0 01/17/17 06:55 76 18 99 Nasal Cannula 3.0 01/17/17 04:00 Nasal Cannula 3.0 01/17/17 03:06 36.7 81 18 177/97 99 Nasal Cannula 3.0 01/17/17 00:01 Nasal Cannula 3.0 01/16/17 22:58 36.7 84 17 160/80 98 Nasal Cannula 3.0 01/16/17 20:00 Nasal Cannula 3.0 01/16/17 19:49 96 18 98 Nasal Cannula 3.0 01/16/17 19:03 37.3 93 20 152/91 97 Nasal Cannula 3.0 01/16/17 16:00 96 Nasal Cannula 3.0 01/16/17 15:14 36.9 99 20 145/79 98 Nasal Cannula 3.0 01/16/17 13:47 102 18 97 Nasal Cannula 3.0 Physical Exam General Appearance: WD/WN, no apparent distress Neck: supple, no adenopathy Respiratory/Chest: chest non-tender, + decreased breath sounds Cardiovascular: no edema, no JVD Abdomen: non tender, soft Neurologic/Psychiatric: alert, normal mood/affect Laboratory Results Last 24 Hours Test 01/16/17 12:42 01/16/17 15:54 01/16/17 20:07 01/17/17 06:02 Hemoglobin 11.4 g/dL 10.6 g/dL Hematocrit 36.4 % 34.4 % Bedside Glucose 128 mg/dl 99 mg/dl White Blood Count 8.32 K/uL Red Blood Count 3.54 M/uL Mean Corpuscular Volume 97.2 fL Mean Corpuscular Hemoglobin 29.9 pg Mean Corpuscular Hemoglobin Concent 30.8 g/dl RDW Standard Deviation 67.3 fL RDW Coefficient of Variation 19.0 % Platelet Count 222 K/uL Mean Platelet Volume 8.8 fL Creatinine 0.97 mg/dl Est Creatinine Clear Calc Drug Dose 49.5 ml/min Estimated GFR () 63.9 Estimated GFR (Non- 55.2 Test 01/17/17 06:30 01/17/17 11:13 Bedside Glucose 94 mg/dl 126 mg/dl Assessment and Plan 1. Acute diastolic CHF - Switch to oral lasix on discharge - recent echo 11/2016 with preserved EF - cont metoprolol and statin 2. Aspiration pneumonia/itis POA - known to have aspirations - CT consistent with this - pulmonary consulted, bronch completed - swallow evaluation 01/16 and video swallow 01/17 - on zyvox for MRSA pneumonia and zosyn for aspiration coverage; hold celexa - cont pred taper 3. Hypothyroid - cont levothyroxine 4. dvt ppx with lovenox
--- NOTE | 2017-01-17 15:05 | DIAGNOSTIC IMAGING REPORT ---
VIDEO SWALLOW STUDY CLINICAL HISTORY: Aspiration. COMPARISON STUDY: Video swallow study dated 11/30/2016. Fluoroscopy time: 1.8 minutes. FINDINGS: Fluoroscopic guidance was provided to the department of speech pathology in performing a video swallow study. The patient consumed barium impregnated pudding, cracker with paste, nectar thick liquids, and thin barium while the swallowing mechanism was observed in real-time. No penetration or aspiration was seen with any of the sampled textures. Disordered swallowing was observed. Extensive fusion hardware is noted in the cervical spine. IMPRESSION: 1. No penetration or aspiration was seen with any of the sampled textures. 2. Disordered swallowing was noted. 3. See dedicated speech pathology report for detailed findings and recommendations. Dictated: 01/17/2017 2:54 PM Transcribed: 01/17/2017 3:05 PM [facility] Electronically signed by: Justo Mejias M.D. 01/17/2017 3:06 PM Dictated Date/Time: 01/17/2017 2:54 PM
[2017-01-17] MEDS: CALCIUM CARBONATE 1250MG TAB PO SCH (17:07)
[2017-01-17] MEDS: SIMVASTATIN 20 MG TAB PO SCH (22:00)
[2017-01-17] MEDS: ROPINIROLE HCL 0.25 MG TAB PO SCH (22:02)
[2017-01-17] MEDS: ENOXAPARIN 40 MG/0.4 ML SYR SC SCH (22:02)
[2017-01-17] MEDS: METOPROLOL SUCC 25MG EXT REL TAB PO SCH (22:03)
[2017-01-17] MEDS: INSULIN GLARGINE SOLOSTAR 100 UNITS/ML 3 ML PEN SC SCH (22:05)
[2017-01-18] VITALS (8 sets, daily range): BP systolic 115–183; BP diastolic 76–90; PULSE 79–100; TEMP 36.6–37; O2SAT 91–98
[2017-01-18] MEDS: ALBUT/IPRATROP 3MG/0.5MG NEB 3 ML VIAL INH SCH ×4 (02:11→19:38)
[2017-01-18] MEDS: LEVOTHYROXINE 88 MCG TAB PO SCH (05:59)
[2017-01-18] MEDS: TIOTROPIUM BROMIDE 5 PUFF/90 MCG INH INH SCH (08:26)
[2017-01-18] MEDS: PANTOprazole SOD 40 MG TAB PO SCH (08:26)
[2017-01-18] MEDS: KETOROLAC 0.5% OP SOLN 3 ML BTL OPL SCH ×4 (08:26→21:12)
[2017-01-18] MEDS: PrednisoLONE ACET 1% OP SUSP 5 ML BTL OPL SCH ×4 (08:26→21:12)
[2017-01-18] MEDS: CHOLECALCIFEROL 1000 INTER.UNIT TAB PO SCH (08:26)
[2017-01-18] MEDS: GABAPENTIN 300 MG CAP PO SCH ×2 (08:27→21:09)
[2017-01-18] MEDS: CYANOCOBALAMIN 500 MCG TAB (VIT B-12) PO SCH (08:27)
[2017-01-18] MEDS: GUAIFENESIN 600 MG TABCR PO SCH ×2 (08:27→21:00)
[2017-01-18] MEDS: POTASSIUM CHLORIDE 20 MEQ TABCR PO SCH (08:27)
[2017-01-18] MEDS: MIDODRINE 2.5 MG TAB PO SCH ×3 (08:28→21:11)
[2017-01-18] MEDS: FUROSEMIDE 20 MG TAB PO SCH (08:28)
[2017-01-18] MEDS: FERROUS SULFATE 325 MG TAB PO SCH ×2 (08:28→16:53)
[2017-01-18] MEDS: CITALOPRAM 20 MG TAB PO SCH (08:28)
[2017-01-18] MEDS: INSULIN ASPART 100 UNITS/ML 3 ML PEN SC SCH ×4 (08:30→21:17)
[2017-01-18] MEDS: PIPERACILL/TAZOBAC IV 4.5 GM in DEXTROSE 5% 100ML IV SCH ×2 (08:44→16:27)
[2017-01-18 09:55] LABS: BASO % 0.2 %; BASO ABS # 0.02 K/uL (0-0.2); COMPLETE YES; EOS % 0.9 %; HEMATOCRIT 41.2 % (37-47); IG% 1.9 %; LYMPH % 19.9 %; LYMPH ABS # 1.71 K/uL (1.2-3.4); MEAN CELL VOLUME 97.6 fL (80-100); MEAN CORPUSCULAR HEMOGLOBIN 28.7 pg (25-34); MEAN CORPUSCULAR HGB CONC 29.4 g/dl (32-36); MEAN PLATELET VOLUME 9.2 fL (7.4-10.4); MONO % 6.6 %; NEUT % 70.5 %; PLATELET COUNT 259 K/uL (130-400); RED BLOOD COUNT 4.22 M/uL (4.2-5.4); WHITE BLOOD COUNT 8.59 K/uL (4.8-10.8)
[2017-01-18] MEDS ORDERED: GLUCOSE 10 TABS/TUBE PO PRN (10:30)
[2017-01-18] MEDS ORDERED: DEXTROSE 50% 50 ML SYR IV PRN (10:30)
[2017-01-18] MEDS ORDERED: GLUCOSE 40% GEL 15 GM TUBE PO PRN (10:30)
[2017-01-18] MEDS ORDERED: GLUCAGON FOR INJ 1 MG VIAL SQ PRN (10:30)
[2017-01-18 11:49] LABS: ARTERIAL BLD GAS O2 SATURATION 93.5 % (90-95); ARTERIAL BLOOD GAS BASE EXCESS 8.1 mEq/L (-9-1.8); ARTERIAL BLOOD GAS HCO3 32 mmol/L (19-24); ARTERIAL BLOOD GAS PO2 68 mm/Hg (80-95)
[2017-01-18 11:52] LABS: ALLEN TEST POSITIVE (POS); O2 ADMINISTRATION ROOM AIR
--- NOTE | 2017-01-18 14:06 | Progress Note ---
Subjective Date of Service: January 18, 2017. Subjective Pt evaluation today including: conversation w/ patient, physical exam, chart review, lab review, review of studies, review of inpatient medication list Pt resting comfortably in bed States breathing about the same Does not qualify for O2 Problem List Medical Problems: (1) Cervical strain Status: Acute (2) Fall Status: Acute (3) Head injury Status: Acute (4) Head injury Status: Acute (5) Hip pain Status: Acute (6) Hypoxia Status: Acute (7) Hypoxia Status: Acute (8) Lower extremity edema Status: Acute (9) Pneumonia Status: Acute (10) Reactive airway disease Status: Acute (11) Sepsis Status: Acute (12) Syncope Status: Acute (13) Traumatic compression fracture of third thoracic vertebra Status: Acute Review of Systems Constitutional: No chills, No fever Respiratory: + cough, + shortness of breath, No sputum, No wheezing Cardiac: No chest pain, No orthopnea Abdomen: No nausea, No pain Musculoskeletal: No joint pain, No muscle pain Female : No dysuria, No urinary frequency Objective Vital Signs Date Time Temp Pulse Resp B/P Pulse Ox O2 Delivery O2 Flow Rate FiO2 01/18/17 10:29 91 95 01/18/17 08:45 Room Air 01/18/17 07:19 79 18 96 Nasal Cannula 3.0 01/18/17 07:17 37.0 82 18 183/90 96 Nasal Cannula 2.0 01/18/17 00:00 98 Nasal Cannula 3.0 01/17/17 23:57 36.9 80 18 156/84 96 Nasal Cannula 2.0 01/17/17 20:00 98 Nasal Cannula 3.0 01/17/17 19:58 90 18 98 Nasal Cannula 3.0 01/17/17 16:00 97 Nasal Cannula 3.0 01/17/17 15:32 36.7 96 18 145/78 97 Nasal Cannula 3.0 01/17/17 14:25 74 18 97 Nasal Cannula 2.0 Physical Exam General Appearance: WD/WN, + mild distress Neck: supple, no adenopathy Respiratory/Chest: chest non-tender, + decreased breath sounds Cardiovascular: no edema, no gallop Abdomen: non tender, soft Neurologic/Psychiatric: alert, oriented x 3 Laboratory Results Last 24 Hours Test 01/17/17 16:25 01/17/17 19:56 01/18/17 07:26 01/18/17 08:50 Bedside Glucose 137 mg/dl 133 mg/dl 97 mg/dl White Blood Count 8.59 K/uL Red Blood Count 4.22 M/uL Hemoglobin 12.1 g/dL Hematocrit 41.2 % Mean Corpuscular Volume 97.6 fL Mean Corpuscular Hemoglobin 28.7 pg Mean Corpuscular Hemoglobin Concent 29.4 g/dl Platelet Count 259 K/uL Mean Platelet Volume 9.2 fL Neutrophils (%) (Auto) 70.5 % Lymphocytes (%) (Auto) 19.9 % Monocytes (%) (Auto) 6.6 % Eosinophils (%) (Auto) 0.9 % Basophils (%) (Auto) 0.2 % Neutrophils # (Auto) 6.05 K/uL Lymphocytes # (Auto) 1.71 K/uL Monocytes # (Auto) 0.57 K/uL Eosinophils # (Auto) 0.08 K/uL Basophils # (Auto) 0.02 K/uL RDW Standard Deviation 68.4 fL RDW Coefficient of Variation 19.1 % Immature Granulocyte % (Auto) 1.9 % Immature Granulocyte # (Auto) 0.16 K/uL Test 01/18/17 11:27 01/18/17 11:35 Bedside Glucose 98 mg/dl Arterial Blood pH 7.50 Arterial Blood Partial Pressure CO2 42 mmHg Arterial Blood Partial Pressure O2 68 mm/Hg Arterial Blood HCO3 32 mmol/L Arterial Blood Oxygen Saturation 93.5 % Arterial Blood Base Excess 8.1 mEq/L Arterial Blood Gas Delivery ROOM AIR John Test POSITIVE Assessment and Plan 1. Acute diastolic CHF - Switch to oral lasix on discharge - recent echo 11/2016 with preserved EF - cont metoprolol and statin - Recheck CXR 01/18 2. Aspiration pneumonia/itis POA - known to have aspirations - CT consistent with this - pulmonary consulted, bronch completed - swallow evaluation 01/16 and video swallow 01/17 determined no aspiration - on zyvox for MRSA pneumonia and zosyn for aspiration coverage; hold celexa - cont pred taper 3. Hypothyroid - cont levothyroxine 4. dvt ppx with lovenox
--- NOTE | 2017-01-18 14:33 | DIAGNOSTIC IMAGING REPORT ---
CHEST ONE VIEW PORTABLE CLINICAL HISTORY: Shortness of breath. COMPARISON STUDY: Chest radiograph and chest CT January 14, 2017. FINDINGS: Spinal hardware and bilateral shoulder arthroplasties are noted. There is no pneumothorax. Cardiomegaly is unchanged. There is no evidence of pulmonary edema. A small right pleural effusion is unchanged. Bibasilar opacities persist. IMPRESSION: 1. No change in bibasilar opacities. The appearance favors atelectasis although pneumonia could appear similar. 2. Small right pleural effusion. 3. No evidence of pulmonary edema. Electronically signed by: Jake Lo M.D. 01/18/2017 2:32 PM Dictated Date/Time: 01/18/2017 2:30 PM
[2017-01-18] MEDS: ACETAMINOPHEN 325 MG TAB PO PRN (15:32)
[2017-01-18] MEDS ORDERED: NURSING VERBAL MED ORDER ONE ×3 (16:45→18:15)
[2017-01-18] MEDS: HYDROCODONE/ACETAMINOPHEN 7.5/325MG TAB PO PRN (16:52)
[2017-01-18] MEDS: CALCIUM CARBONATE 1250MG TAB PO SCH (16:54)
[2017-01-18] MEDS: GUAIFENESIN SUGAR FREE 100 MG/5 ML UDC PO PRN (17:17)
[2017-01-18] MEDS ORDERED: MoRPHine SULFATE 2 MG/ML CARP ONE (18:07)
[2017-01-18] MEDS ORDERED: KETOROLAC TROMETHAMINE 30 MG/ML VIAL ONE (18:17)
[2017-01-18] MEDS ORDERED: KETOROLAC TROMETHAMINE 15 MG/ML VIAL IV. ONE (18:45)
[2017-01-18] MEDS: METOPROLOL SUCC 25MG EXT REL TAB PO SCH (21:07)
[2017-01-18] MEDS: SIMVASTATIN 20 MG TAB PO SCH (21:09)
[2017-01-18] MEDS: ROPINIROLE HCL 0.25 MG TAB PO SCH (21:10)
[2017-01-18] MEDS: ENOXAPARIN 40 MG/0.4 ML SYR SC SCH (21:13)
[2017-01-18] MEDS: INSULIN GLARGINE SOLOSTAR 100 UNITS/ML 3 ML PEN SC SCH (21:16)
[2017-01-19] VITALS (7 sets, daily range): BP systolic 116–169; BP diastolic 70–83; PULSE 76–91; TEMP 36.8–37.9; O2SAT 91–94
[2017-01-19] MEDS: PIPERACILL/TAZOBAC IV 4.5 GM in DEXTROSE 5% 100ML IV SCH ×3 (00:23→16:02)
[2017-01-19] MEDS: ALBUT/IPRATROP 3MG/0.5MG NEB 3 ML VIAL INH SCH ×4 (02:12→19:33)
[2017-01-19] MEDS: LEVOTHYROXINE 88 MCG TAB PO SCH (06:25)
[2017-01-19 08:08] LABS: HEMATOCRIT 40.3 % (37-47)
[2017-01-19] MEDS: MIDODRINE 2.5 MG TAB PO SCH ×3 (08:23→21:19)
[2017-01-19] MEDS: PANTOprazole SOD 40 MG TAB PO SCH (08:23)
[2017-01-19] MEDS: CHOLECALCIFEROL 1000 INTER.UNIT TAB PO SCH (08:23)
[2017-01-19] MEDS: TIOTROPIUM BROMIDE 5 PUFF/90 MCG INH INH SCH (08:23)
[2017-01-19] MEDS: CYANOCOBALAMIN 500 MCG TAB (VIT B-12) PO SCH (08:23)
[2017-01-19] MEDS: FUROSEMIDE 20 MG TAB PO SCH (08:24)
[2017-01-19] MEDS: POTASSIUM CHLORIDE 20 MEQ TABCR PO SCH (08:24)
[2017-01-19] MEDS: CITALOPRAM 20 MG TAB PO SCH (08:24)
[2017-01-19] MEDS: GABAPENTIN 300 MG CAP PO SCH ×2 (08:24→21:20)
[2017-01-19] MEDS: GUAIFENESIN 600 MG TABCR PO SCH ×2 (08:24→21:20)
[2017-01-19] MEDS: FERROUS SULFATE 325 MG TAB PO SCH ×2 (08:25→17:15)
[2017-01-19] MEDS: PrednisoLONE ACET 1% OP SUSP 5 ML BTL OPL SCH ×4 (08:25→21:20)
[2017-01-19] MEDS: KETOROLAC 0.5% OP SOLN 3 ML BTL OPL SCH ×4 (08:25→21:20)
[2017-01-19] MEDS: INSULIN ASPART 100 UNITS/ML 3 ML PEN SC SCH ×4 (08:27→21:34)
[2017-01-19 08:40] LABS: BUN/CREATININE RATIO 23.5 (10-20); CREATININE 1.2 mg/dl (0.60-1.20); POTASSIUM 3.4 mmol/L (3.5-5.1)
[2017-01-19 08:45] LABS: CALCIUM 9.3 mg/dl (8.5-10.1)
[2017-01-19] MEDS: HYDROCODONE/ACETAMINOPHEN 7.5/325MG TAB PO PRN ×2 (09:24→18:25)
--- NOTE | 2017-01-19 12:31 | Progress Note ---
Subjective Date of Service: January 19, 2017. Subjective Pt evaluation today including: conversation w/ patient, physical exam, chart review, lab review, review of studies, review of inpatient medication list States pain in chest and difficulty breathing On room air, requesting box fan Cough but dry No other concerns at this time Problem List Medical Problems: (1) Cervical strain Status: Acute (2) Fall Status: Acute (3) Head injury Status: Acute (4) Head injury Status: Acute (5) Hip pain Status: Acute (6) Hypoxia Status: Acute (7) Hypoxia Status: Acute (8) Lower extremity edema Status: Acute (9) Pneumonia Status: Acute (10) Reactive airway disease Status: Acute (11) Sepsis Status: Acute (12) Syncope Status: Acute (13) Traumatic compression fracture of third thoracic vertebra Status: Acute Review of Systems Constitutional: No chills, No fever Respiratory: + cough, No dyspnea on exertion, No shortness of breath, No sputum , No wheezing Cardiac: No chest pain, No orthopnea Abdomen: No constipation, No diarrhea, No nausea, No pain, No vomiting Musculoskeletal: No joint pain, No muscle pain Neurologic: No memory loss, No paralysis Objective Vital Signs Date Time Temp Pulse Resp B/P Pulse Ox O2 Delivery O2 Flow Rate FiO2 01/19/17 08:30 Room Air 01/19/17 07:10 80 18 94 Room Air 01/19/17 07:07 36.8 81 18 169/83 93 Room Air 01/19/17 02:13 81 18 93 Room Air 01/19/17 00:00 Room Air 01/18/17 22:57 37.0 88 20 132/77 92 Room Air 01/18/17 19:38 82 18 91 Room Air 01/18/17 16:00 Room Air 01/18/17 15:48 36.6 100 20 142/82 92 Room Air 01/18/17 14:08 91 18 92 Room Air Physical Exam General Appearance: WD/WN, + mild distress Neck: supple, no adenopathy Respiratory/Chest: + decreased breath sounds, + wheezing Cardiovascular: no edema, no gallop Abdomen: non tender, soft Neurologic/Psychiatric: alert, oriented x 3 Laboratory Results Last 24 Hours Test 01/18/17 16:44 01/18/17 19:56 01/19/17 07:18 01/19/17 07:48 Bedside Glucose 210 mg/dl 184 mg/dl 120 mg/dl Hemoglobin 12.1 g/dL Hematocrit 40.3 % Sodium Level 142 mmol/L Potassium Level 3.4 mmol/L Chloride Level 102 mmol/L Carbon Dioxide Level 33 mmol/L Anion Gap 7.0 mmol/L Blood Urea Nitrogen 28 mg/dl Creatinine 1.20 mg/dl Est Creatinine Clear Calc Drug Dose 39.1 ml/min Estimated GFR () 49.4 Estimated GFR (Non- 42.7 BUN/Creatinine Ratio 23.5 Random Glucose 94 mg/dl Calcium Level 9.3 mg/dl Assessment and Plan 1. Acute diastolic CHF - Switch to oral lasix on discharge - recent echo 11/2016 with preserved EF - cont metoprolol and statin - Recheck CXR 01/18 2. Aspiration pneumonia/itis POA - known to have aspirations - CT consistent with this - pulmonary consulted, bronch completed - swallow evaluation 01/16 and video swallow 01/17 determined no aspiration - on zyvox for MRSA pneumonia and zosyn for aspiration coverage; hold celexa - cont pred taper 3. Hypothyroid - cont levothyroxine 4. dvt ppx with lovenox DISPO: Awaiting PT/OT and possible rehab
[2017-01-19] MEDS: CALCIUM CARBONATE 1250MG TAB PO SCH (17:15)
[2017-01-19] MEDS: ROPINIROLE HCL 0.25 MG TAB PO SCH (21:19)
[2017-01-19] MEDS: SIMVASTATIN 20 MG TAB PO SCH (21:19)
[2017-01-19] MEDS: METOPROLOL SUCC 25MG EXT REL TAB PO SCH (21:19)
[2017-01-19] MEDS: ENOXAPARIN 40 MG/0.4 ML SYR SC SCH (21:21)
[2017-01-19] MEDS: INSULIN GLARGINE SOLOSTAR 100 UNITS/ML 3 ML PEN SC SCH (21:26)
[2017-01-20] MEDS: PIPERACILL/TAZOBAC IV 4.5 GM in DEXTROSE 5% 100ML IV SCH ×2 (01:23→08:39)
[2017-01-20] MEDS: ALBUT/IPRATROP 3MG/0.5MG NEB 3 ML VIAL INH SCH ×4 (02:08→19:23)
[2017-01-20 06:49] LABS: MEAN CELL VOLUME 95.9 fL (80-100); MEAN CORPUSCULAR HEMOGLOBIN 29.6 pg (25-34); MEAN CORPUSCULAR HGB CONC 30.9 g/dl (32-36); MEAN PLATELET VOLUME 9.3 fL (7.4-10.4); PLATELET COUNT 221 K/uL (130-400); RED BLOOD COUNT 3.65 M/uL (4.2-5.4); WHITE BLOOD COUNT 9.72 K/uL (4.8-10.8)
[2017-01-20] MEDS: LEVOTHYROXINE 88 MCG TAB PO SCH (06:49)
[2017-01-20 07:17] VITALS: PULSE 75; O2SAT 95
[2017-01-20 07:22] LABS: CREATININE 1.1 mg/dl (0.60-1.20)
[2017-01-20 07:39] VITALS: BP 137/84; PULSE 87; TEMP 36.7; O2SAT 96
[2017-01-20 08:00] VITALS: O2SAT 96
[2017-01-20] MEDS: GUAIFENESIN 600 MG TABCR PO SCH ×2 (08:05→21:22)
[2017-01-20] MEDS: FUROSEMIDE 20 MG TAB PO SCH (08:05)
[2017-01-20] MEDS: CHOLECALCIFEROL 1000 INTER.UNIT TAB PO SCH (08:06)
[2017-01-20] MEDS: GABAPENTIN 300 MG CAP PO SCH ×2 (08:06→21:23)
[2017-01-20] MEDS: POTASSIUM CHLORIDE 20 MEQ TABCR PO SCH (08:07)
[2017-01-20] MEDS: PANTOprazole SOD 40 MG TAB PO SCH (08:07)
[2017-01-20] MEDS: FERROUS SULFATE 325 MG TAB PO SCH ×2 (08:07→17:29)
[2017-01-20] MEDS: CITALOPRAM 20 MG TAB PO SCH (08:08)
[2017-01-20] MEDS: CYANOCOBALAMIN 500 MCG TAB (VIT B-12) PO SCH (08:08)
[2017-01-20] MEDS: MIDODRINE 2.5 MG TAB PO SCH ×3 (08:09→21:24)
[2017-01-20] MEDS: PrednisoLONE ACET 1% OP SUSP 5 ML BTL OPL SCH ×4 (08:09→21:20)
[2017-01-20] MEDS: KETOROLAC 0.5% OP SOLN 3 ML BTL OPL SCH ×4 (08:10→21:22)
[2017-01-20] MEDS: HYDROCODONE/ACETAMINOPHEN 7.5/325MG TAB PO PRN ×2 (08:21→14:59)
[2017-01-20] MEDS: INSULIN ASPART 100 UNITS/ML 3 ML PEN SC SCH ×4 (08:38→21:38)
[2017-01-20] MEDS ORDERED: NURSING VERBAL MED ORDER ONE ×2 (09:00→15:30)
[2017-01-20] MEDS ORDERED: MoRPHine SULFATE 2 MG/ML CARP IV ONE (09:30)
[2017-01-20] MEDS: TIOTROPIUM BROMIDE 5 PUFF/90 MCG INH INH SCH (11:14)
[2017-01-20] MEDS: GUAIFENESIN SUGAR FREE 100 MG/5 ML UDC PO PRN ×2 (14:59→23:03)
[2017-01-20 15:54] VITALS: BP 142/82; PULSE 97; TEMP 36.8; O2SAT 94
--- NOTE | 2017-01-20 15:59 | Progress Note ---
Subjective Date of Service: January 20, 2017. Subjective Pt evaluation today including: conversation w/ patient, physical exam, chart review, lab review, review of studies, review of inpatient medication list Pt reports pain in right flank Still cough but dry Shortness of breath about the same Problem List Medical Problems: (1) Cervical strain Status: Acute (2) Fall Status: Acute (3) Head injury Status: Acute (4) Head injury Status: Acute (5) Hip pain Status: Acute (6) Hypoxia Status: Acute (7) Hypoxia Status: Acute (8) Lower extremity edema Status: Acute (9) Pneumonia Status: Acute (10) Reactive airway disease Status: Acute (11) Sepsis Status: Acute (12) Syncope Status: Acute (13) Traumatic compression fracture of third thoracic vertebra Status: Acute Review of Systems Constitutional: No chills, No fever Respiratory: + cough, No dyspnea on exertion, No shortness of breath, No sputum , No wheezing Cardiac: No chest pain, No orthopnea Abdomen: No constipation, No diarrhea, No nausea, No pain, No vomiting Musculoskeletal: + joint pain, + muscle pain Female : No dysuria, No urinary frequency Objective Vital Signs Date Time Temp Pulse Resp B/P Pulse Ox O2 Delivery O2 Flow Rate FiO2 01/20/17 08:00 96 Room Air 01/20/17 07:39 36.7 87 18 137/84 96 Nasal Cannula 2.0 01/20/17 07:17 75 18 95 Room Air 01/20/17 00:00 Room Air 01/19/17 23:12 37.9 91 18 116/70 91 Room Air 01/19/17 20:00 Room Air 01/19/17 19:33 76 18 93 Room Air 01/19/17 16:15 Room Air Physical Exam General Appearance: WD/WN, + mild distress Neck: supple, no adenopathy Respiratory/Chest: lungs clear, + decreased breath sounds Cardiovascular: regular rate, rhythm, no JVD Abdomen: non tender, soft, no organomegaly Neurologic/Psychiatric: alert, oriented x 3 Laboratory Results Last 24 Hours Test 01/19/17 16:14 01/19/17 19:49 01/20/17 06:10 01/20/17 07:10 Bedside Glucose 165 mg/dl 243 mg/dl 114 mg/dl White Blood Count 9.72 K/uL Red Blood Count 3.65 M/uL Hemoglobin 10.8 g/dL Hematocrit 35.0 % Mean Corpuscular Volume 95.9 fL Mean Corpuscular Hemoglobin 29.6 pg Mean Corpuscular Hemoglobin Concent 30.9 g/dl RDW Standard Deviation 67.4 fL RDW Coefficient of Variation 19.1 % Platelet Count 221 K/uL Mean Platelet Volume 9.3 fL Creatinine 1.10 mg/dl Est Creatinine Clear Calc Drug Dose 42.7 ml/min Estimated GFR () 54.9 Estimated GFR (Non- 47.4 Test 01/20/17 11:31 Bedside Glucose 119 mg/dl Assessment and Plan Acute diastolic CHF - Switch to oral lasix on discharge - Recent echo 11/2016 with preserved EF - Cont metoprolol and statin - Recheck CXR 01/18 - Consult cardiology Chronic pain -- ?from cough - [place] in addition to lidoderm patch added Aspiration pneumonia/itis POA - Known to have aspirations - CT consistent with this - Pulmonary consulted, bronch completed diffuse mucus plugs and oral secretions - Swallow evaluation 01/16 and video swallow 01/17 determined no aspiration - Cont pred taper - Finished course of antibx Hypothyroid - Cont levothyroxine - TSH WNL DVT ppx with lovenox DISPO: Awaiting PT/OT and possible rehab
[2017-01-20] MEDS ORDERED: LIDODERM (LIDOCAINE) PATCH 5% TD ONE (16:00)
[2017-01-20] MEDS: CALCIUM CARBONATE 1250MG TAB PO SCH (17:29)
[2017-01-20 19:23] VITALS: PULSE 81; O2SAT 97
[2017-01-20] MEDS: DICLOFENAC SOD 1% GEL 100 GM TUBE EXT SCH (21:19)
[2017-01-20] MEDS: ROPINIROLE HCL 0.25 MG TAB PO SCH (21:24)
[2017-01-20] MEDS: SIMVASTATIN 20 MG TAB PO SCH (21:24)
[2017-01-20] MEDS: ENOXAPARIN 40 MG/0.4 ML SYR SC SCH (21:26)
[2017-01-20] MEDS: INSULIN GLARGINE SOLOSTAR 100 UNITS/ML 3 ML PEN SC SCH (21:39)
[2017-01-20 23:22] VITALS: BP 131/80; PULSE 86; TEMP 36.8; O2SAT 96
[2017-01-21] MEDS: ALBUT/IPRATROP 3MG/0.5MG NEB 3 ML VIAL INH SCH ×4 (01:51→19:42)
[2017-01-21] MEDS: GUAIFENESIN SUGAR FREE 100 MG/5 ML UDC PO PRN (05:41)
[2017-01-21] MEDS: LEVOTHYROXINE 88 MCG TAB PO SCH (05:41)
[2017-01-21 06:35] LABS: HEMATOCRIT 35.1 % (37-47); MEAN CELL VOLUME 95.6 fL (80-100); MEAN CORPUSCULAR HEMOGLOBIN 29.2 pg (25-34); MEAN CORPUSCULAR HGB CONC 30.5 g/dl (32-36); MEAN PLATELET VOLUME 9.1 fL (7.4-10.4); PLATELET COUNT 205 K/uL (130-400); RED BLOOD COUNT 3.67 M/uL (4.2-5.4); WHITE BLOOD COUNT 8.74 K/uL (4.8-10.8)
[2017-01-21 07:00] LABS: ANISOCYTOSIS PRESENT; BASO % 0.3 %; BASO ABS # 0.03 K/uL (0-0.2); COMPLETE YES; EOS % 1.1 %; IG% 5.9 %; LYMPH % 20.7 %; LYMPH ABS # 1.81 K/uL (1.2-3.4); MONO % 10.9 %; NEUT % 61.1 %
[2017-01-21 07:10] VITALS: PULSE 83; O2SAT 91
[2017-01-21 07:20] LABS: BUN/CREATININE RATIO 18.5 (10-20); POTASSIUM 3.3 mmol/L (3.5-5.1)
[2017-01-21 08:00] VITALS: BP 151/83; PULSE 88; TEMP 36.8; O2SAT 91
[2017-01-21] MEDS: GUAIFENESIN 600 MG TABCR PO SCH ×2 (09:17→21:15)
[2017-01-21] MEDS: CYANOCOBALAMIN 500 MCG TAB (VIT B-12) PO SCH (09:18)
[2017-01-21] MEDS: FERROUS SULFATE 325 MG TAB PO SCH ×2 (09:18→17:04)
[2017-01-21] MEDS: GABAPENTIN 300 MG CAP PO SCH ×2 (09:18→21:16)
[2017-01-21] MEDS: CITALOPRAM 20 MG TAB PO SCH (09:18)
[2017-01-21] MEDS: MIDODRINE 2.5 MG TAB PO SCH ×3 (09:19→21:20)
[2017-01-21] MEDS: PANTOprazole SOD 40 MG TAB PO SCH (09:19)
[2017-01-21] MEDS: CHOLECALCIFEROL 1000 INTER.UNIT TAB PO SCH (09:20)
[2017-01-21] MEDS: DOCUSATE SODIUM/SENNA 50/8.6MG TAB PO PRN (09:20)
[2017-01-21] MEDS: FUROSEMIDE 20 MG TAB PO SCH (09:20)
[2017-01-21] MEDS: LIDODERM (LIDOCAINE) PATCH 5% TD SCH (09:21)
[2017-01-21] MEDS: TIOTROPIUM BROMIDE 5 PUFF/90 MCG INH INH SCH (09:21)
[2017-01-21] MEDS: PrednisoLONE ACET 1% OP SUSP 5 ML BTL OPL SCH ×4 (09:22→21:13)
[2017-01-21] MEDS: POTASSIUM CHLORIDE 20 MEQ TABCR PO SCH (09:22)
[2017-01-21] MEDS: KETOROLAC 0.5% OP SOLN 3 ML BTL OPL SCH ×4 (09:23→21:14)
[2017-01-21] MEDS: INSULIN ASPART 100 UNITS/ML 3 ML PEN SC SCH ×4 (09:28→21:23)
--- NOTE | 2017-01-21 11:57 | CARDIOLOGY CONSULTATION ---
DATE OF CONSULTATION: 01/21/2017 REQUESTING: Dr. Leander Lilly. INSURANCE RISK MANAGER: Gautam Boucher DO, [facility] Cardiology for Dr. 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 REASON FOR CONSULTATION: Lower extremity edema and abdominal distention and diastolic heart failure. HISTORY OF PRESENT ILLNESS: She had an extensive hospitalization in OctoberNovember 2016 due to MRSA pneumonia and asthma exacerbation. She was discharged on steroids and went to rehab for 2 weeks. Over that 2-week period and since then, she has had significant weight gain. Her prednisone had been increased due to increasing shortness of breath as an outpatient. Her Lasix was doubled as an outpatient, but she continued to gain weight. The patient notes that she has had increased abdominal distention and lower extremity edema. She notes that with diuretics in the hospital, her lower extremity edema has improved, but her abdominal distention persists. She remained short of breath and she has a chronic cough, which is nonproductive. She did have a recent echocardiogram, which revealed preserved left ventricular systolic function in November of 2016 with an EF in the 65%-70%. Her right ventricle is described as normal. Her atria were not well visualized due to her body habitus and her PA pressure was approximately 30 mmHg. The patient denies any palpitations or fluttering or feeling her heart racing. Just sitting in bed, she looks short of breath. She has significant abdominal distention. She is sort of hunched in bed. She describes shortness of breath with activity. She denies any chest pain, chest pressure, or chest heaviness. Her lightheadedness has improved with the use of midodrine. She denies any presyncope or syncope. As noted, she has a chronic cough, which is nonproductive. She has orthopedic issues. Rest of review of systems is otherwise negative. PAST MEDICAL HISTORY: 1. Chronic diastolic heart failure. 2. Asthma. 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 4. GERD. 5. Thyroid cancer. 6. Anxiety disorder. 7. Chronic pain syndrome. 8. Chronic kidney disease, stage II-III. 9. Recent prolonged hospitalization due to MRSA pneumonia and asthma. 10. Hypothyroidism. 11. Hyperlipidemia. 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 FAMILY HISTORY: Positive for cancer, gallbladder disease, heart disease and lung disease. INPATIENT MEDICATIONS: Reviewed in detail. SOCIAL HISTORY: She is a lifetime nonsmoker. She is with 3 children. She lives with her daughter. PHYSICAL EXAMINATION: GENERAL: She is awake, alert, and oriented x3. She looks chronically ill. VITAL SIGNS: Her heart rate is 88, her blood pressure is 151/83, her respirations are 18, and her sat is 91% on room air. HEENNT: 2+ carotid upstrokes. No evidence of carotid bruits. Her jugular venous pressure cannot be assessed due to her neck size. Her sclerae is anicteric. Her hearing is normal. LUNGS: Clear to auscultation bilaterally with decreased breath sounds in the bases bilaterally. No rales, rhonchi or wheezing. HEART: Regular rate and rhythm. No appreciable murmurs, rubs or gallops. Her heart sounds were distant. ABDOMEN: Distended and firm. Positive bowel sounds. Nontender. EXTREMITIES: No clubbing, cyanosis or edema. PSYCHIATRIC: She appears somewhat depressed. LABORATORY STUDIES: Her diagnostic studies reviewed including her hemoglobin of 10.7 and her platelet count of 205. Sodium 145 and potassium 3.3. Her BUN is 18 and creatinine is 1. Of note, her admission BNP was normal, although in obese women, this can be falsely negative. Her troponins were negative. Echocardiogram reviewed as discussed above. CT of her chest was reviewed. Her most recent chest x-ray on 01/18/2017, no evidence of pulmonary edema, small right pleural effusion, and atelectasis. IMPRESSION: 1. Chronic diastolic heart failure. 2. Possible obstructive sleep apnea and obesity hypoventilation syndrome. 3. Likely chronic right-sided heart failure. 4. Weight gain due to chronic prednisone use. 5. History of orthostatic symptoms, thought to be due to autonomic dysfunction on chronic midodrine 2.5 mg t.i.d. I would make the following recommendations. I would continue her diuretic. She does not seem significantly prerenal and unfortunately, given her chronic prednisone use, which is going to increase her volume status, she actually may need more diuretics than 20 mg daily. She needs to be weighed daily on standing scale to follow her weight. She needs to follow a low sodium diet (2000 mg) and needs dietary education. I would consider an overnight nocturnal pulse oximetry to see if her oxygen drops and I would not be surprised if it drops significantly as even her baseline pulse ox is low and ultimately as an outpatient, she would likely benefit from a sleep study if she has not had one and treatment with CPAP if she has sleep apnea and obesity hypoventilation syndrome. We will continue to follow with you. Dr. Kelyl will be returning on Monday. [facility] CENT[facility]helsie
--- NOTE | 2017-01-21 13:16 | Progress Note ---
Subjective Date of Service: January 21, 2017. Subjective Pt evaluation today including: conversation w/ patient, physical exam, chart review, lab review, review of studies, review of inpatient medication list Resting in bed comfortably States flank pain more tolerable with lidoderm patch Cough still persistent Problem List Medical Problems: (1) Cervical strain Status: Acute (2) Fall Status: Acute (3) Head injury Status: Acute (4) Head injury Status: Acute (5) Hip pain Status: Acute (6) Hypoxia Status: Acute (7) Hypoxia Status: Acute (8) Lower extremity edema Status: Acute (9) Pneumonia Status: Acute (10) Reactive airway disease Status: Acute (11) Sepsis Status: Acute (12) Syncope Status: Acute (13) Traumatic compression fracture of third thoracic vertebra Status: Acute Review of Systems Constitutional: No chills, No fever Respiratory: + cough, + shortness of breath, + sputum, No wheezing Cardiac: No chest pain, No orthopnea Abdomen: No constipation, No nausea, No pain, No vomiting Musculoskeletal: + joint pain, + muscle pain Female : No dysuria, No urinary frequency Objective Vital Signs Date Time Temp Pulse Resp B/P Pulse Ox O2 Delivery O2 Flow Rate FiO2 01/21/17 08:00 Room Air 01/21/17 08:00 36.8 88 18 151/83 91 Room Air 01/21/17 07:10 83 18 91 Room Air 01/21/17 00:11 Room Air 01/20/17 23:22 36.8 86 18 131/80 96 Room Air 01/20/17 19:58 Room Air 01/20/17 19:23 81 18 97 Room Air 01/20/17 16:00 Room Air 01/20/17 15:54 36.8 97 18 142/82 94 Room Air Physical Exam General Appearance: WD/WN, + mild distress Neck: supple, no adenopathy Respiratory/Chest: chest non-tender, + decreased breath sounds Cardiovascular: no edema, no gallop Abdomen: non tender, soft Neurologic/Psychiatric: alert, oriented x 3 Laboratory Results Last 24 Hours Test 01/20/17 16:27 01/20/17 20:44 01/21/17 06:15 01/21/17 07:32 Bedside Glucose 136 mg/dl 165 mg/dl 102 mg/dl White Blood Count 8.74 K/uL Red Blood Count 3.67 M/uL Hemoglobin 10.7 g/dL Hematocrit 35.1 % Mean Corpuscular Volume 95.6 fL Mean Corpuscular Hemoglobin 29.2 pg Mean Corpuscular Hemoglobin Concent 30.5 g/dl Platelet Count 205 K/uL Mean Platelet Volume 9.1 fL Neutrophils (%) (Auto) 61.1 % Lymphocytes (%) (Auto) 20.7 % Monocytes (%) (Auto) 10.9 % Eosinophils (%) (Auto) 1.1 % Basophils (%) (Auto) 0.3 % Neutrophils # (Auto) 5.33 K/uL Lymphocytes # (Auto) 1.81 K/uL Monocytes # (Auto) 0.95 K/uL Eosinophils # (Auto) 0.10 K/uL Basophils # (Auto) 0.03 K/uL RDW Standard Deviation 66.1 fL RDW Coefficient of Variation 18.8 % Immature Granulocyte % (Auto) 5.9 % Immature Granulocyte # (Auto) 0.52 K/uL Nucleated RBC Absolute Count (auto) 0.02 K/uL Nucleated Red Blood Cells % 0.3 % Anisocytosis PRESENT Sodium Level 145 mmol/L Potassium Level 3.3 mmol/L Chloride Level 107 mmol/L Carbon Dioxide Level 31 mmol/L Anion Gap 7.0 mmol/L Blood Urea Nitrogen 18 mg/dl Creatinine 1.00 mg/dl Est Creatinine Clear Calc Drug Dose 47.0 ml/min Estimated GFR () 61.6 Estimated GFR (Non- 53.2 BUN/Creatinine Ratio 18.5 Random Glucose 91 mg/dl Calcium Level 9.0 mg/dl Test 01/21/17 11:22 Bedside Glucose 105 mg/dl Assessment and Plan Acute diastolic CHF - Switch to oral lasix on discharge - Recent echo 11/2016 with preserved EF - Cont metoprolol and statin - Recheck CXR 01/18 - Consult cardiology per daughter request, diuresing well on lasix but still volume overloaded, increase lasix to 40 mg Chronic pain -- ?from cough - [place] in addition to lidoderm patch added Aspiration pneumonia/itis POA - Known to have aspirations - CT consistent with this - Pulmonary consulted, bronch completed diffuse mucus plugs and oral secretions - Swallow evaluation 01/16 and video swallow 01/17 determined no aspiration - Cont pred taper - Finished course of antibx Hypothyroid - Cont levothyroxine - TSH WNL DVT ppx with lovenox DISPO: Awaiting PT/OT and possible rehab
[2017-01-21] MEDS ORDERED: POTASSIUM CHLORIDE 20 MEQ TABCR PO ONE (13:45)
[2017-01-21 14:22] VITALS: PULSE 102; O2SAT 92
[2017-01-21 15:16] VITALS: BP 137/81; PULSE 105; TEMP 36.8; O2SAT 90
[2017-01-21] MEDS: CALCIUM CARBONATE 1250MG TAB PO SCH (17:04)
[2017-01-21 19:42] VITALS: PULSE 106; O2SAT 94
[2017-01-21] MEDS: DICLOFENAC SOD 1% GEL 100 GM TUBE EXT SCH (21:14)
[2017-01-21] MEDS: ROPINIROLE HCL 0.25 MG TAB PO SCH (21:15)
[2017-01-21] MEDS: SIMVASTATIN 20 MG TAB PO SCH (21:16)
[2017-01-21] MEDS: ENOXAPARIN 40 MG/0.4 ML SYR SC SCH (21:17)
[2017-01-21] MEDS: INSULIN GLARGINE SOLOSTAR 100 UNITS/ML 3 ML PEN SC SCH (21:22)
[2017-01-21 23:25] VITALS: BP 148/70; PULSE 99; TEMP 37; O2SAT 93
[2017-01-22] VITALS (7 sets, daily range): BP systolic 123–152; BP diastolic 73–80; PULSE 91–99; TEMP 36.6; O2SAT 93–94
[2017-01-22] MEDS: ALBUT/IPRATROP 3MG/0.5MG NEB 3 ML VIAL INH SCH ×4 (01:57→19:46)
[2017-01-22 05:48] LABS: MEAN CELL VOLUME 97.5 fL (80-100); MEAN CORPUSCULAR HEMOGLOBIN 30.1 pg (25-34); MEAN CORPUSCULAR HGB CONC 30.9 g/dl (32-36); MEAN PLATELET VOLUME 9.5 fL (7.4-10.4); PLATELET COUNT 222 K/uL (130-400); RED BLOOD COUNT 3.59 M/uL (4.2-5.4); WHITE BLOOD COUNT 8.89 K/uL (4.8-10.8)
[2017-01-22 06:14] LABS: BASO % 0.2 %; BASO ABS # 0.02 K/uL (0-0.2); BUN/CREATININE RATIO 22.6 (10-20); CALCIUM 8.6 mg/dl (8.5-10.1); COMPLETE YES; CREATININE 1.1 mg/dl (0.60-1.20); EOS % 0.7 %; HYPERSEGMENTED POLYS OCCASIONAL; IG% 5.3 %; LYMPH % 22.9 %; LYMPH ABS # 2.04 K/uL (1.2-3.4); MONO % 10.5 %; NEUT % 60.4 %; POTASSIUM 3.5 mmol/L (3.5-5.1)
[2017-01-22] MEDS: LEVOTHYROXINE 88 MCG TAB PO SCH (06:27)
[2017-01-22] MEDS: HYDROCODONE/ACETAMINOPHEN 7.5/325MG TAB PO PRN (08:44)
[2017-01-22] MEDS: FERROUS SULFATE 325 MG TAB PO SCH ×2 (08:44→17:50)
[2017-01-22] MEDS: KETOROLAC 0.5% OP SOLN 3 ML BTL OPL SCH ×4 (08:45→20:40)
[2017-01-22] MEDS: PrednisoLONE ACET 1% OP SUSP 5 ML BTL OPL SCH ×4 (08:45→20:40)
[2017-01-22] MEDS: GUAIFENESIN 600 MG TABCR PO SCH ×2 (08:46→20:31)
[2017-01-22] MEDS: CYANOCOBALAMIN 500 MCG TAB (VIT B-12) PO SCH (08:47)
[2017-01-22] MEDS: FUROSEMIDE 40 MG TAB PO SCH (08:47)
[2017-01-22] MEDS: GABAPENTIN 300 MG CAP PO SCH ×2 (08:47→20:32)
[2017-01-22] MEDS: CITALOPRAM 20 MG TAB PO SCH (08:47)
[2017-01-22] MEDS: DOCUSATE SODIUM/SENNA 50/8.6MG TAB PO PRN (08:48)
[2017-01-22] MEDS: GUAIFENESIN SUGAR FREE 100 MG/5 ML UDC PO PRN (08:48)
[2017-01-22] MEDS: CHOLECALCIFEROL 1000 INTER.UNIT TAB PO SCH (08:49)
[2017-01-22] MEDS: POTASSIUM CHLORIDE 20 MEQ TABCR PO SCH (08:50)
[2017-01-22] MEDS: PANTOprazole SOD 40 MG TAB PO SCH (08:51)
[2017-01-22] MEDS: MIDODRINE 2.5 MG TAB PO SCH ×3 (08:51→20:33)
[2017-01-22] MEDS: LIDODERM (LIDOCAINE) PATCH 5% TD SCH (08:52)
[2017-01-22] MEDS ORDERED: POTASSIUM CHLORIDE 20 MEQ TABCR PO SCH (09:00)
[2017-01-22] MEDS: INSULIN ASPART 100 UNITS/ML 3 ML PEN SC SCH ×4 (09:09→20:45)
[2017-01-22] MEDS: TIOTROPIUM BROMIDE 5 PUFF/90 MCG INH INH SCH (11:37)
--- NOTE | 2017-01-22 13:29 | Progress Note ---
Subjective Date of Service: January 22, 2017. Subjective Pt evaluation today including: conversation w/ patient, physical exam, chart review, lab review, review of studies, review of inpatient medication list Pt resting comfortably in bed Still states mild respiratory distress Hacking dry cough No fevers or chills Flank pain more tolerable with lidoderm patch Problem List Medical Problems: (1) Cervical strain Status: Acute (2) Fall Status: Acute (3) Head injury Status: Acute (4) Head injury Status: Acute (5) Hip pain Status: Acute (6) Hypoxia Status: Acute (7) Hypoxia Status: Acute (8) Lower extremity edema Status: Acute (9) Pneumonia Status: Acute (10) Reactive airway disease Status: Acute (11) Sepsis Status: Acute (12) Syncope Status: Acute (13) Traumatic compression fracture of third thoracic vertebra Status: Acute Review of Systems Constitutional: No chills, No fever Respiratory: + cough, No dyspnea on exertion, No shortness of breath, No sputum , No wheezing Cardiac: No chest pain, No orthopnea Abdomen: No constipation, No diarrhea, No nausea, No pain, No vomiting Musculoskeletal: + muscle pain (right flank pain), No joint pain Female : No dysuria, No urinary frequency Objective Vital Signs Date Time Temp Pulse Resp B/P Pulse Ox O2 Delivery O2 Flow Rate FiO2 01/22/17 09:38 Room Air 01/22/17 07:33 36.6 91 16 152/78 93 Room Air 01/22/17 07:31 99 16 93 Room Air 01/22/17 00:05 94 Room Air 01/21/17 23:25 37.0 99 18 148/70 93 Room Air 01/21/17 19:42 106 16 94 Room Air 01/21/17 16:00 Room Air 01/21/17 15:16 36.8 105 17 137/81 90 Room Air 01/21/17 14:22 102 16 92 Room Air Physical Exam General Appearance: WD/WN, + mild distress Neck: supple, no adenopathy Respiratory/Chest: lungs clear, + decreased breath sounds Cardiovascular: no edema, no gallop Abdomen: non tender, soft Neurologic/Psychiatric: alert, + depressed affect Laboratory Results Last 24 Hours Test 01/21/17 16:59 01/21/17 20:31 01/22/17 05:18 01/22/17 07:31 Bedside Glucose 211 mg/dl 171 mg/dl 110 mg/dl White Blood Count 8.89 K/uL Red Blood Count 3.59 M/uL Hemoglobin 10.8 g/dL Hematocrit 35.0 % Mean Corpuscular Volume 97.5 fL Mean Corpuscular Hemoglobin 30.1 pg Mean Corpuscular Hemoglobin Concent 30.9 g/dl Platelet Count 222 K/uL Mean Platelet Volume 9.5 fL Neutrophils (%) (Auto) 60.4 % Lymphocytes (%) (Auto) 22.9 % Monocytes (%) (Auto) 10.5 % Eosinophils (%) (Auto) 0.7 % Basophils (%) (Auto) 0.2 % Neutrophils # (Auto) 5.37 K/uL Lymphocytes # (Auto) 2.04 K/uL Monocytes # (Auto) 0.93 K/uL Eosinophils # (Auto) 0.06 K/uL Basophils # (Auto) 0.02 K/uL RDW Standard Deviation 68.5 fL RDW Coefficient of Variation 19.2 % Immature Granulocyte % (Auto) 5.3 % Immature Granulocyte # (Auto) 0.47 K/uL Nucleated RBC Absolute Count (auto) 0.06 K/uL Nucleated Red Blood Cells % 0.6 % Hypersegmented Polys OCCASIONAL Sodium Level 147 mmol/L Potassium Level 3.5 mmol/L Chloride Level 109 mmol/L Carbon Dioxide Level 29 mmol/L Anion Gap 9.0 mmol/L Blood Urea Nitrogen 25 mg/dl Creatinine 1.10 mg/dl Est Creatinine Clear Calc Drug Dose 42.8 ml/min Estimated GFR () 54.9 Estimated GFR (Non- 47.4 BUN/Creatinine Ratio 22.6 Random Glucose 99 mg/dl Calcium Level 8.6 mg/dl Test 01/22/17 11:52 Bedside Glucose 119 mg/dl Assessment and Plan Acute on chronic diastolic CHF - Continue lasix 40 mg PO daily, resolved, appropriate diuresis - Recent echo 11/2016 with 65-70% EF, no WMA - Cont metoprolol and statin - Recheck CXR 01/18 - Consult cardiology per daughter request, diuresing well on lasix but still volume overloaded, cont lasix 40 mg PO daily Chronic pain -- ?from cough - [place] in addition to lidoderm patch added, better tolerated Aspiration pneumonia/itis POA - Known to have aspirations - CT consistent with this - Pulmonary consulted, bronch completed with diffuse mucus plugs and oral secretions noted - Swallow evaluation 01/16 and video swallow 01/17 determined no aspiration - Cont pred taper - Finished 7 day course of antibx Hypothyroid - Cont levothyroxine - TSH WNL DVT ppx with lovenox DISPO: Pt would like to reconsider rehab, states she will make her decision over the weekend on whether to look at rehab vs home with home health
[2017-01-22] MEDS: CALCIUM CARBONATE 1250MG TAB PO SCH (17:50)
[2017-01-22] MEDS: SIMVASTATIN 20 MG TAB PO SCH (20:35)
[2017-01-22] MEDS: DICLOFENAC SOD 1% GEL 100 GM TUBE EXT SCH (20:37)
[2017-01-22] MEDS: ROPINIROLE HCL 0.25 MG TAB PO SCH (20:38)
[2017-01-22] MEDS: ENOXAPARIN 40 MG/0.4 ML SYR SC SCH (20:39)
[2017-01-22] MEDS: INSULIN GLARGINE SOLOSTAR 100 UNITS/ML 3 ML PEN SC SCH (20:45)
[2017-01-23] VITALS (10 sets, daily range): BP systolic 116–175; BP diastolic 70–84; PULSE 86–93; TEMP 36.5–36.8; O2SAT 91–97
[2017-01-23] MEDS: ALBUT/IPRATROP 3MG/0.5MG NEB 3 ML VIAL INH SCH ×5 (01:49→19:35)
[2017-01-23] MEDS: LEVOTHYROXINE 88 MCG TAB PO SCH (06:16)
[2017-01-23 06:21] LABS: BASO % 0.3 %; BASO ABS # 0.03 K/uL (0-0.2); COMPLETE YES; EOS % 0.5 %; HEMATOCRIT 35.3 % (37-47); IG% 4.1 %; LYMPH % 26.9 %; LYMPH ABS # 2.53 K/uL (1.2-3.4); MEAN CELL VOLUME 96.7 fL (80-100); MEAN PLATELET VOLUME 9.4 fL (7.4-10.4); MONO % 8.6 %; NEUT % 59.6 %; PLATELET COUNT 230 K/uL (130-400); RED BLOOD COUNT 3.65 M/uL (4.2-5.4); WHITE BLOOD COUNT 9.42 K/uL (4.8-10.8)
[2017-01-23 07:00] LABS: BUN/CREATININE RATIO 22.1 (10-20); CALCIUM 8.7 mg/dl (8.5-10.1); POTASSIUM 3.2 mmol/L (3.5-5.1)
[2017-01-23] MEDS: FERROUS SULFATE 325 MG TAB PO SCH ×2 (08:02→17:39)
[2017-01-23] MEDS: KETOROLAC 0.5% OP SOLN 3 ML BTL OPL SCH ×4 (08:03→21:17)
[2017-01-23] MEDS: TIOTROPIUM BROMIDE 5 PUFF/90 MCG INH INH SCH (08:03)
[2017-01-23] MEDS: PrednisoLONE ACET 1% OP SUSP 5 ML BTL OPL SCH ×4 (08:03→21:17)
[2017-01-23] MEDS: CHOLECALCIFEROL 1000 INTER.UNIT TAB PO SCH (08:03)
[2017-01-23] MEDS: MIDODRINE 2.5 MG TAB PO SCH ×3 (08:04→21:20)
[2017-01-23] MEDS: CYANOCOBALAMIN 500 MCG TAB (VIT B-12) PO SCH (08:06)
[2017-01-23] MEDS: GABAPENTIN 300 MG CAP PO SCH ×2 (08:06→21:21)
[2017-01-23] MEDS: CITALOPRAM 20 MG TAB PO SCH (08:06)
[2017-01-23] MEDS: PANTOprazole SOD 40 MG TAB PO SCH (08:06)
[2017-01-23] MEDS: GUAIFENESIN 600 MG TABCR PO SCH ×2 (08:08→21:20)
[2017-01-23] MEDS: FUROSEMIDE 40 MG TAB PO SCH ×2 (08:08→21:21)
[2017-01-23] MEDS: POTASSIUM CHLORIDE 20 MEQ TABCR PO SCH (08:09)
[2017-01-23] MEDS: LIDODERM (LIDOCAINE) PATCH 5% TD SCH (08:09)
[2017-01-23] MEDS: INSULIN ASPART 100 UNITS/ML 3 ML PEN SC SCH ×4 (08:26→21:00)
[2017-01-23] MEDS ORDERED: POTASSIUM CHLORIDE 10 MEQ TABCR PO ONE (09:00)
--- NOTE | 2017-01-23 09:22 | Pulmonology Progress Note ---
Pulmonary Progress Note Date of Service January 23, 2017. Attending Dr. Sandoval Subjective Continues to describe loose cough with inability to expectorate. Dyspnea is persistent provoked with activity and alleviated with rest. Has been making an effort to ambulate throughout the room. Nebulizer is modestly palliative providing temporary relief. Appetite is in-tact. No fevers or chest discomfort. 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 She is a life-long non- smoker. Patient history notable for recent admission 11/11/16 - 12/15/16 with acute on chronic respiratory insufficiency with respiratory culture + MRSA complicated by UTI, thrush, and deconditioning. Discharged to [facility]. Patient admitted 01/14/17 with h/o progressive dyspnea and peripheral edema/ weight gain despite #6 antibiotics, 30mg prednisone, and increase daily diuretic. On admission labs notable for leukocytosis and elevated lactic acid in the setting of nL LFTs. AGBs: CO2: 42-45. CTA 01/14: moderate mucoid material in the trachea. Small right pleural effusion. Stable 4mm rt apical nodule. lower lobe bronchial thickening. No PE. Bronchoscopy 01/15/17: Procedure notable for erythema of the posterior wall of the trachea with diffuse mucoid secretions of the trachea, right and left bronchial trees. Rabia - few, rare yeast. Video swallow 01/17/17: + disordered swallowing - no aspiration CXR 01/18/17: stable-unchanged bibasilar opacities and small right pleural effusion. Today: - 91-94% RA - Afebrile, hypertensive, HD stable - WBC/hgb/hct/plts: 9.42/10.6/35.3/230 - K+: 3.2, CO2: 29 Physical Exam: Constitutional: chronically ill appearing elderly female sitting in chair at bedside. Does appear brighter than prior admission HEENT: EOMi, PERRLA, pale conjunctiva. Moist mucous membranes Respiratory: non-labored respirations. Bronchial BS on left anteriorly. Right lateral coarse rales. Scant loose cough during exam. No accessary muscle use. CV: RRR, diminished S1, S2. Warm and perfused peripherally : christian draining yellow urine MSK/Extremities: moving symmetrically. No peripheral edema of the UE/LEs. Modest venous stasis changes LEs bilaterally Neurologic: A&O x 3. Good data recall. Appropriate affect. Assessment & Plan 82-yo female admitted with acute on chronic respiratory insufficiency felt to be secondary to mucoid burden, suspected aspiration and volume overload. 1. Continue bronchodilators Q6-hours and pulmonary toilet: low-flow flutter and IS 2. Dose adjustment: 25mg prednisone tomorrow 3. Continue to suspect aspiration: aspiration precautions and sleep with HOB elevated 30-degrees 4. Re-visit outpatient PSG (last attempt undeliverable 11/2016) post discharge Data Medications: Current Inpatient Medications Medications (Trade) Dose Ordered Sig/Natasha Route Start Time Stop Time Status Last Admin Dose Admin Enoxaparin Sodium (Lovenox Inj) 40 mg Q24H SC 01/14/17 21:00 02/13/17 20:59 01/22/17 20:39 40 MG Acetaminophen (Tylenol Tab) 650 mg Q4H PRN PO 01/14/17 18:00 02/13/17 17:59 01/18/17 15:32 650 MG Al Hydrox/Mg Hydrox/Simethicone (Maalox Max Susp) 15 ml Q4H PRN PO 01/14/17 18:00 02/13/17 17:59 Magnesium Hydroxide (Milk Of Magnesia Susp) 30 ml Q12H PRN PO 01/14/17 18:00 02/13/17 17:59 Ondansetron HCl (Zofran Inj) 4 mg Q6H PRN IV 01/14/17 18:00 02/13/17 17:59 Nitroglycerin (Nitrostat Tab) 0.4 mg UD PRN SL 01/14/17 18:00 02/13/17 17:59 Polyethylene (Miralax Powder Packet) 17 gm DAILY PRN PO 01/14/17 18:00 02/13/17 17:59 01/21/17 16:22 17 GM Cholecalciferol (Vitamin D Tab) 1,000 inter.unit QAM PO 01/15/17 09:00 02/14/17 08:59 01/23/17 08:03 1,000 INTER.UNIT Citalopram Hydrobromide (celeXA TAB) 30 mg QAM PO 01/18/17 09:00 02/17/17 08:59 01/23/17 08:06 30 MG Cyanocobalamin (Vitamin B-12 Tab) 1,000 mcg QAM PO 01/15/17 09:00 02/14/17 08:59 01/23/17 08:06 1,000 MCG Gabapentin (Neurontin Cap) 300 mg BID PO 01/14/17 21:00 02/13/17 20:59 01/23/17 08:06 300 MG Albuterol/ Ipratropium (Duoneb) 3 ml Q6R INH 01/14/17 21:00 02/13/17 20:59 01/23/17 07:41 3 ML Ketorolac Tromethamine (Acular 0.5 Oph Soln) 1 drops QID OPL 01/14/17 21:00 02/13/17 20:59 01/23/17 08:03 1 DROPS Levothyroxine Sodium (Synthroid Tab) 88 mcg DAILYBB PO 01/15/17 06:00 02/14/17 05:59 01/23/17 06:16 88 MCG Midodrine (Proamatine Tab) 2.5 mg TID PO 01/14/17 21:00 02/13/17 20:59 01/22/17 20:33 2.5 MG Prednisolone Acetate (Pred Forte 1% Oph Susp) 1 drops QID OPL 01/14/17 21:00 02/13/17 20:59 01/23/17 08:03 1 DROPS Ropinirole HCl (Requip Tab) 0.5 mg HS PO 01/14/17 21:00 02/13/17 20:59 01/22/17 20:38 0.5 MG Senna/Docusate Sodium (Senokot S Tab) 1 tab QAM PRN PO 01/14/17 18:00 02/13/17 17:59 01/22/17 08:48 1 TAB Simvastatin (Zocor Tab) 20 mg HS PO 01/14/17 21:00 02/13/17 20:59 01/22/17 20:35 20 MG Acetaminophen/ Butalbital/ Caffeine (Fioricet Tab) 1 tab Q4H PRN PO 01/14/17 18:00 02/13/17 17:59 01/21/17 03:11 1 TAB Calcium Carbonate (oS-Misael 500 TAB) 1,250 mg DAILY@1800 PO 01/15/17 18:00 02/14/17 17:59 01/22/17 17:50 1,250 MG Guaifenesin (Mucinex Contr Rel Tab) 1,200 mg Q12 PO 01/14/17 21:00 02/13/17 20:59 01/23/17 08:08 1,200 MG Pantoprazole Sodium (Protonix Tab) 40 mg QAM PO 01/15/17 09:00 02/14/17 08:59 01/23/17 08:06 40 MG Potassium Chloride (Klor-Con Tab) 20 meq QAM PO 01/15/17 09:00 02/14/17 08:59 01/23/17 08:09 20 MEQ Tiotropium Mobile (Spiriva Handihaler Inhaler) 1 puff QAM INH 01/15/17 09:00 02/14/17 08:59 01/23/17 08:03 1 PUFF Insulin Glargine (Lantus Solostar Pen) 10 unit HS SC 01/14/17 21:00 02/13/17 20:59 01/22/17 20:45 10 UNIT Insulin Aspart (novoLOG ASPART) SLIDING SCALE G... ACHS SC 01/14/17 21:00 02/13/17 20:59 01/23/17 08:26 11 UNITS Ferrous Sulfate (Feosol Tab) 325 mg BIDM PO 01/16/17 16:45 02/15/17 16:44 01/23/17 08:02 325 MG Prednisone (PredniSONE TAB) 40 mg DAILY PO 01/18/17 09:00 02/17/17 08:59 01/23/17 08:07 40 MG Glucose (Glucose 40% Gel) 15-30 GRAMS 15 GRAMS... UD PRN PO 01/18/17 10:30 02/17/17 10:29 Glucose (Glucose Chew Tab) 4-8 Tablets 4 Tabl... UD PRN PO 01/18/17 10:30 02/17/17 10:29 Dextrose (Dextrose 50% 50ML Syringe) 25-50ML OF 50% DW IV FOR... UD PRN IV 01/18/17 10:30 02/17/17 10:29 Glucagon (Glucagon Inj) 1 mg UD PRN SQ 01/18/17 10:30 02/17/17 10:29 Guaifenesin (Robitussin Sugar Free Syrup) 100 mg Q6H PRN PO 01/18/17 15:45 02/17/17 15:44 01/22/17 08:48 100 MG Acetaminophen/ Hydrocodone Bitart ([place] 7.5/325 Tab) 1 tab Q4H PRN PO 01/18/17 16:45 02/01/17 16:44 01/22/17 08:44 1 TAB Diclofenac Sodium (Voltaren 1% Top Gel) 1 appln HS EXT 01/20/17 21:00 02/19/17 20:59 01/22/17 20:37 1 APPLN Lidocaine (Lidoderm Patch 5%) 1 patch QAM TD 01/21/17 09:00 02/20/17 08:59 01/23/17 08:09 1 PATCH Miscellaneous (Remove Lidoderm Patch) 1 ea DAILY@2100 N/A 01/20/17 21:00 02/19/17 20:59 01/22/17 20:37 1 EA Furosemide (Lasix Tab) 40 mg BID PO 01/23/17 21:00 02/22/17 20:59 I & O: 24-Hour Column 01/23/17 08:00 Intake Total 840 ml Output Total 1625 ml Balance -785 ml Vital Signs: Date Time Temp Pulse Resp B/P Pulse Ox O2 Delivery O2 Flow Rate FiO2 01/23/17 07:42 87 16 94 Room Air 01/23/17 07:35 36.5 86 18 175/84 92 Room Air 01/23/17 04:41 92 16 92 Room Air 01/23/17 00:05 36.8 92 16 139/73 91 Room Air 01/23/17 00:00 93 Room Air 01/22/17 20:45 97 136/80 01/22/17 20:00 Room Air 01/22/17 19:46 92 16 93 Room Air 01/22/17 16:00 Room Air 01/22/17 15:18 36.6 99 18 123/73 93 Room Air 01/22/17 14:19 97 16 93 Room Air 01/22/17 09:38 Room Air Laboratory Results: Last 24 Hours Test 01/22/17 11:52 01/22/17 16:50 01/22/17 20:21 01/23/17 05:41 Bedside Glucose 119 mg/dl 136 mg/dl 149 mg/dl White Blood Count 9.42 K/uL Red Blood Count 3.65 M/uL Hemoglobin 10.6 g/dL Hematocrit 35.3 % Mean Corpuscular Volume 96.7 fL Mean Corpuscular Hemoglobin 29.0 pg Mean Corpuscular Hemoglobin Concent 30.0 g/dl Platelet Count 230 K/uL Mean Platelet Volume 9.4 fL Neutrophils (%) (Auto) 59.6 % Lymphocytes (%) (Auto) 26.9 % Monocytes (%) (Auto) 8.6 % Eosinophils (%) (Auto) 0.5 % Basophils (%) (Auto) 0.3 % Neutrophils # (Auto) 5.61 K/uL Lymphocytes # (Auto) 2.53 K/uL Monocytes # (Auto) 0.81 K/uL Eosinophils # (Auto) 0.05 K/uL Basophils # (Auto) 0.03 K/uL RDW Standard Deviation 67.3 fL RDW Coefficient of Variation 19.0 % Immature Granulocyte % (Auto) 4.1 % Immature Granulocyte # (Auto) 0.39 K/uL Nucleated RBC Absolute Count (auto) 0.06 K/uL Nucleated Red Blood Cells % 0.6 % Sodium Level 144 mmol/L Potassium Level 3.2 mmol/L Chloride Level 107 mmol/L Carbon Dioxide Level 29 mmol/L Anion Gap 8.0 mmol/L Blood Urea Nitrogen 22 mg/dl Creatinine 1.00 mg/dl Est Creatinine Clear Calc Drug Dose 47.1 ml/min Estimated GFR () 61.6 Estimated GFR (Non- 53.2 BUN/Creatinine Ratio 22.1 Random Glucose 83 mg/dl Calcium Level 8.7 mg/dl Test 01/23/17 07:16 Bedside Glucose 97 mg/dl
--- NOTE | 2017-01-23 09:53 | CARDIOLOGY PROGRESS NOTE ---
DATE: 01/23/2017 TIME: 8:19 a.m. SUBJECTIVE: Ms. Philip does not feel any better from a breathing standpoint compared to when she presented. She has been followed in the outpatient cardiology office for shortness of breath. She was last seen on 01/09/2017 by Julianna Abraham PA-C. At that time, she had worsening edema after being placed on prednisone and therefore her Lasix was increased to 40 mg daily. At that time, the metoprolol was also discontinued secondary to orthostatic symptoms. She has been hospitalized here since 01/14/2017. She was seen by pulmonology and then over the weekend by Dr. Boucher for cardiology. Ms. Philip does not believe that she has had any worsening edema, but states that her abdomen has been more distended and thinks that she perhaps is retaining fluid in her abdomen. She describes shortness of breath at rest, orthopnea and also with exertion. Throughout her hospital stay, she has been receiving 40 mg of Lasix p.o. daily. She has also received intermittent IV dosing of Lasix 20 mg IV on 01/14/2017; 40 mg IV once daily on 01/16/2017 and 01/17/2017. She also received 20 mg of IV Lasix on 01/15/2017. Her creatinine was 0.96 on presentation, increased to 1.2 and then has trended back down to 1. She denies angina, syncope, near syncope or palpitations. She was sleeping when I entered the room and appeared to be breathing comfortably. She also appeared to be breathing comfortably during our conversation. OBJECTIVE: VITAL SIGNS: Temperature is 36.5 degrees, heart rate 87 beats per minute, respiratory rate 16 and blood pressure 175/84 mmHg; however, her blood pressure was mostly normotensive yesterday. Oxygen saturation is 94% on room air. I's and O's negative 385 mL yesterday. Cumulative I's and O's for her hospital stay is negative 12.2 liters thus far. Her weight is 91.2 kilograms, down from 91.8 kilograms yesterday. GENERAL: No acute distress. She is alert. NECK: Thick. Cannot assess JVD. CARDIAC: No ventricular heave. Regular. Normal S1, S2. No audible murmurs, rubs or gallops. LUNGS: Decreased breath sounds throughout, especially at the right base, otherwise clear. ABDOMEN: Soft. It is mildly distended, but nontender. Normoactive bowel sounds. No bruits are noted. EXTREMITIES: Trace bilateral lower extremity edema. No cyanosis. Has 2+ radial pulses bilaterally and 2+ dorsalis pedis pulses bilaterally. PSYCHIATRIC: Affect appears appropriate. MEDICATIONS: Include; Lovenox 40 mg subQ daily, Lasix 40 mg p.o. daily, Synthroid 88 mcg daily, midodrine 2.5 mg p.o. t.i.d., Protonix 40 mg daily, potassium chloride 20 mEq daily, prednisone 40 mg daily, Requip 0.5 mg at bedtime, simvastatin 20 mg p.o. at bedtime and Spiriva one puff daily. STUDIES: CT angiogram of 01/14/2017; no evidence of pulmonary embolus; however, it was a limited study. Bibasilar linear densities, favoring atelectasis per radiology. Small right pleural effusion. Moderate mucoid material within the trachea, resulting in 50% narrowing of the tracheal lumen, could be due to aspiration per radiology. Stable 4 mm right upper lobe pulmonary nodule. Chest x-ray of 01/18/2017; no change in bibasilar opacities. Small right pleural effusion. No evidence of pulmonary edema per radiology. Venous Doppler of 01/14/2017; no DVT of bilateral lower extremities. Bronchoscopy was performed on 01/15/[address] Khalil. Last pulmonology note of 01/16/[address] Clayton; he recommended antibiotics until cultures were available from the bronchoscopy. Bronchoscopy washings are showing Rabia albicans and other yeast. Cultures are not yet final. LABORATORIES: Sodium 144, potassium 3.2, BUN 22, creatinine 1. WBC 9.4, hemoglobin 10.6, platelets 230. Monitor strips that are available were reviewed. Sinus rhythm. No arrhythmia. ECG from presentation was personally reviewed. Sinus rhythm, 100 beats per minute. Nonspecific ST/T wave abnormality. Most recent echocardiogram of 11/30/2016; reported normal LV systolic function with an EF of 65-70%. Normal RV size and systolic function. RVSP is estimated at 30 mmHg, it was a limited study. A complete study on 10/21/2016 had demonstrated similar LV findings and no significant valvular abnormalities. ASSESSMENT AND PLAN: 1. Shortness of breath; likely multifactorial. She has been managed by pulmonology and Dr. Khalil has suspected chronic aspiration. She also has a reported history of asthma and is being treated with steroids. She also has appeared to be hypervolemic. Her renal function is stable. She is diuresing on current dose of Lasix; however, we will increase Lasix to 40 mg twice daily for now and watch renal function closely. 2. Hypervolemia. Her BNP was not elevated, less than 300. Her BNP has not been elevated on several evaluations in the past, with the highest BNP being 226; but typically it is less than 100. Therefore, acute congestive heart failure is not likely with such a low brain natriuretic peptide. Hypervolemia, however, is possible especially while on steroid treatment. There is no obvious fluid retention on exam; however, her abdomen feels more distended to her; this may or may not be secondary to fluid. It is reasonable to increase diuretics, but monitor renal function closely for signs of azotemia. Also, monitor electrolytes closely as she is hypokalemic today. We will give additional potassium chloride this morning. 3. Orthostatic hypotension: She takes midodrine which could account for some of her hypertension, especially while lying in bed. We would recommend that she spend her daylight hours while on midodrine out of bed to avoid supine hypertension. 4. Hypertension: We will have to accept some degree of hypertension due to her orthostatic hypotensive symptoms in the past. 5. Disposition: Cardiology will continue to follow. However, I will be away from the hospital tomorrow. Please call for any questions or concerns. Dr. Mari Burton, the primary hospitalist, was paged to discuss above recommendations. MARIBELLD
[2017-01-23] MEDS ORDERED: Remove Lidoderm Patch (12:59)
[2017-01-23] MEDS ORDERED: LSX40 PO (12:59)
[2017-01-23] MEDS ORDERED: HYDR-3983 PO (12:59)
[2017-01-23] MEDS ORDERED: METH4PAK PO (13:00)
--- NOTE | 2017-01-23 13:08 | Discharge Instructions ---
Discharge Instructions Admission Admission Date: Jan 14, 2017 at 17:27 Admission Diagnosis: Acute Respiratory Failure W/ Hypoxia. Discharge Care Plan - Problem: Medical Problems: (1) Hypoxia (2) Lower extremity edema (3) Reactive airway disease (4) Sepsis Care Plan - Goal(s): Improve function Care Plan - Instructions: Activity Recommendations: no limitations Recommended Home Diet: 1800 Misael Wt Reduction * Call 911 or immediately go to the Hospital Emergency Department nearest your location if you feel you have an emergent problem. Inpt VTE Proph given/why not?: Enoxaparin (Lovenox)SQ Follow Up Follow-Up: Follow up with Dr. Sandoval in 2 weeks [facility] Recommendations: Call your doctor if: * Temperature above 101 degrees * Pain not relieved by pain medicine ordered * There is increased drainage or redness from any incision * You have any unanswered questions or concerns. Your Doctors Instructions noted above were prepared by provider Abby Reece.
--- NOTE | 2017-01-23 14:13 | DIAGNOSTIC IMAGING REPORT ---
CHEST 2 VIEWS ROUTINE CLINICAL HISTORY: Chest pain. Cough. Right pleural effusion. COMPARISON STUDY: 01/18/2017 FINDINGS: The heart is mildly enlarged. There are postsurgical changes present within the thoracolumbar spine and cervical spine. There are bilateral shoulder arthroplasties. There is a persistent right pleural effusion which is stable to minimally larger. There are persistent bibasilar opacities, likely atelectatic. IMPRESSION: 1. Persistent right pleural effusion 2. Persistent bibasilar opacities Electronically signed by: Edenilson Barrett M.D. 01/23/2017 2:12 PM Dictated Date/Time: 01/23/2017 2:10 PM
[2017-01-23] MEDS: KETOROLAC TROMETHAMINE 15 MG/ML VIAL IM SCH ×2 (14:23→21:14)
[2017-01-23] MEDS: HYDROCODONE/ACETAMINOPHEN 7.5/325MG TAB PO PRN (16:53)
--- NOTE | 2017-01-23 17:36 | Progress Note ---
Subjective Date of Service: January 23, 2017. Subjective Pt evaluation today including: conversation w/ patient, physical exam, chart review, lab review, review of studies, conversation w/ network systems consultant (Dr. Sandoval) Problem List Medical Problems: (1) Cervical strain Status: Acute (2) Fall Status: Acute (3) Head injury Status: Acute (4) Head injury Status: Acute (5) Hip pain Status: Acute (6) Hypoxia Status: Acute (7) Hypoxia Status: Acute (8) Lower extremity edema Status: Acute (9) Pneumonia Status: Acute (10) Reactive airway disease Status: Acute (11) Sepsis Status: Acute (12) Syncope Status: Acute (13) Traumatic compression fracture of third thoracic vertebra Status: Acute Review of Systems Constitutional: No chills, No fatigue, No fever, No problem reported, No see HPI, No sweats, No weakness, No weight loss Eyes: No diplopia, No discharge, No eye pain, No problem reported, No redness, No see HPI, No worsening of vision ENT: No dental problems, No hearing loss, No nasal symptoms, No problem reported, No see HPI, No sore throat, No tinnitus, No trouble swallowing, No unusual epistaxis Respiratory: + shortness of breath Cardiac: + chest pain (when she takes deep breath) Abdomen: No GI bleeding, No constipation, No diarrhea, No nausea, No pain, No problem reported, No see HPI, No vomiting Musculoskeletal: No calf pain, No joint pain, No muscle pain, No problem reported, No see HPI, No swelling Female : No abnormal vaginal bleeding, No dysuria, No hematuria, No incontinence, No problem reported, No see HPI, No urinary frequency, No vaginal discharge Neurologic: No balance problems, No memory loss, No numbness/tingling, No paralysis, No problem reported, No see HPI, No vertigo, No weakness Psychiatric: No anhedonism, No anxiety, No depression symptoms, No insomnia, No problem reported, No see HPI, No substance abuse Heme: No abnormal bleeding/bruising, No clotting problems, No night sweats, No problem reported, No see HPI, No swollen lymph nodes Endo: No excessive thirst, No excessive urination, No fatigue, No problem reported, No see HPI Skin: No bleeding, No color change, No itch, No new/changing skin lesions, No problem reported, No rash, No see HPI Medications Current Inpatient Medications Medications (Trade) Dose Ordered Sig/Natasha Route Start Time Stop Time Status Last Admin Dose Admin Enoxaparin Sodium (Lovenox Inj) 40 mg Q24H SC 01/14/17 21:00 02/13/17 20:59 01/22/17 20:39 40 MG Acetaminophen (Tylenol Tab) 650 mg Q4H PRN PO 01/14/17 18:00 02/13/17 17:59 01/18/17 15:32 650 MG Al Hydrox/Mg Hydrox/Simethicone (Maalox Max Susp) 15 ml Q4H PRN PO 01/14/17 18:00 02/13/17 17:59 Magnesium Hydroxide (Milk Of Magnesia Susp) 30 ml Q12H PRN PO 01/14/17 18:00 02/13/17 17:59 Ondansetron HCl (Zofran Inj) 4 mg Q6H PRN IV 01/14/17 18:00 02/13/17 17:59 Nitroglycerin (Nitrostat Tab) 0.4 mg UD PRN SL 01/14/17 18:00 02/13/17 17:59 Polyethylene (Miralax Powder Packet) 17 gm DAILY PRN PO 01/14/17 18:00 02/13/17 17:59 01/21/17 16:22 17 GM Cholecalciferol (Vitamin D Tab) 1,000 inter.unit QAM PO 01/15/17 09:00 02/14/17 08:59 01/23/17 08:03 1,000 INTER.UNIT Citalopram Hydrobromide (celeXA TAB) 30 mg QAM PO 01/18/17 09:00 02/17/17 08:59 01/23/17 08:06 30 MG Cyanocobalamin (Vitamin B-12 Tab) 1,000 mcg QAM PO 01/15/17 09:00 02/14/17 08:59 01/23/17 08:06 1,000 MCG Gabapentin (Neurontin Cap) 300 mg BID PO 01/14/17 21:00 02/13/17 20:59 01/23/17 08:06 300 MG Albuterol/ Ipratropium (Duoneb) 3 ml Q6R INH 01/14/17 21:00 02/13/17 20:59 01/23/17 07:41 3 ML Ketorolac Tromethamine (Acular 0.5 Oph Soln) 1 drops QID OPL 01/14/17 21:00 02/13/17 20:59 01/23/17 13:07 1 DROPS Levothyroxine Sodium (Synthroid Tab) 88 mcg DAILYBB PO 01/15/17 06:00 02/14/17 05:59 01/23/17 06:16 88 MCG Midodrine (Proamatine Tab) 2.5 mg TID PO 01/14/17 21:00 02/13/17 20:59 01/22/17 20:33 2.5 MG Prednisolone Acetate (Pred Forte 1% Oph Susp) 1 drops QID OPL 01/14/17 21:00 02/13/17 20:59 01/23/17 13:07 1 DROPS Ropinirole HCl (Requip Tab) 0.5 mg HS PO 01/14/17 21:00 02/13/17 20:59 01/22/17 20:38 0.5 MG Senna/Docusate Sodium (Senokot S Tab) 1 tab QAM PRN PO 01/14/17 18:00 02/13/17 17:59 01/22/17 08:48 1 TAB Simvastatin (Zocor Tab) 20 mg HS PO 01/14/17 21:00 02/13/17 20:59 01/22/17 20:35 20 MG Acetaminophen/ Butalbital/ Caffeine (Fioricet Tab) 1 tab Q4H PRN PO 01/14/17 18:00 02/13/17 17:59 01/21/17 03:11 1 TAB Calcium Carbonate (oS-Misael 500 TAB) 1,250 mg DAILY@1800 PO 01/15/17 18:00 02/14/17 17:59 01/22/17 17:50 1,250 MG Guaifenesin (Mucinex Contr Rel Tab) 1,200 mg Q12 PO 01/14/17 21:00 02/13/17 20:59 01/23/17 08:08 1,200 MG Pantoprazole Sodium (Protonix Tab) 40 mg QAM PO 01/15/17 09:00 02/14/17 08:59 01/23/17 08:06 40 MG Potassium Chloride (Klor-Con Tab) 20 meq QAM PO 01/15/17 09:00 02/14/17 08:59 01/23/17 08:09 20 MEQ Tiotropium [place] (Spiriva Handihaler Inhaler) 1 puff QAM INH 01/15/17 09:00 02/14/17 08:59 01/23/17 08:03 1 PUFF Insulin Glargine (Lantus Solostar Pen) 10 unit HS SC 01/14/17 21:00 02/13/17 20:59 01/22/17 20:45 10 UNIT Insulin Aspart (novoLOG ASPART) SLIDING SCALE G... ACHS SC 01/14/17 21:00 02/13/17 20:59 01/23/17 13:06 4 UNITS Ferrous Sulfate (Feosol Tab) 325 mg BIDM PO 01/16/17 16:45 02/15/17 16:44 01/23/17 08:02 325 MG Prednisone (PredniSONE TAB) 40 mg DAILY PO 01/18/17 09:00 02/17/17 08:59 01/23/17 08:07 40 MG Glucose (Glucose 40% Gel) 15-30 GRAMS 15 GRAMS... UD PRN PO 01/18/17 10:30 02/17/17 10:29 Glucose (Glucose Chew Tab) 4-8 Tablets 4 Tabl... UD PRN PO 01/18/17 10:30 02/17/17 10:29 Dextrose (Dextrose 50% 50ML Syringe) 25-50ML OF 50% DW IV FOR... UD PRN IV 01/18/17 10:30 02/17/17 10:29 Glucagon (Glucagon Inj) 1 mg UD PRN SQ 01/18/17 10:30 02/17/17 10:29 Guaifenesin (Robitussin Sugar Free Syrup) 100 mg Q6H PRN PO 01/18/17 15:45 02/17/17 15:44 01/22/17 08:48 100 MG Acetaminophen/ Hydrocodone Bitart ([place] 7.5/325 Tab) 1 tab Q4H PRN PO 01/18/17 16:45 02/01/17 16:44 01/23/17 16:53 1 TAB Diclofenac Sodium (Voltaren 1% Top Gel) 1 appln HS EXT 01/20/17 21:00 64/17 20:59 01/22/17 20:37 1 APPLN Lidocaine (Lidoderm Patch 5%) 1 patch QAM TD 01/21/17 09:00 02/20/17 08:59 01/23/17 08:09 1 PATCH Miscellaneous (Remove Lidoderm Patch) 1 ea DAILY@2100 N/A 01/20/17 21:00 02/19/17 20:59 01/22/17 20:37 1 EA Furosemide (Lasix Tab) 40 mg BID PO 01/23/17 21:00 02/22/17 20:59 Ketorolac Tromethamine (Toradol Inj) 15 mg Q12 IM 01/23/17 14:00 01/24/17 14:00 01/23/17 14:23 15 MG Objective Vital Signs Date Time Temp Pulse Resp B/P Pulse Ox O2 Delivery O2 Flow Rate FiO2 01/23/17 15:45 36.8 93 16 132/78 97 Room Air 01/23/17 14:27 127/77 01/23/17 10:50 87 94 01/23/17 08:00 Room Air 01/23/17 07:42 87 16 94 Room Air 01/23/17 07:35 36.5 86 18 175/84 92 Room Air 01/23/17 04:41 92 16 92 Room Air 01/23/17 00:05 36.8 92 16 139/73 91 Room Air 01/23/17 00:00 93 Room Air 01/22/17 20:45 97 136/80 01/22/17 20:00 Room Air 01/22/17 19:46 92 16 93 Room Air Physical Exam General Appearance: WD/WN, no apparent distress Eyes: normal inspection, PERRL ENT: normal ENT inspection, hearing grossly normal Neck: supple Respiratory/Chest: + respiratory distress, + crackles Cardiovascular: regular rate, rhythm, no edema, no gallop, no JVD, no murmur Abdomen: normal bowel sounds, non tender, soft, no organomegaly Extremities: normal range of motion, non-tender, normal inspection, no pedal edema, no calf tenderness 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/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, no motor/sensory deficits, alert, normal mood/affect, oriented x 3 Skin: normal color, warm/dry, no rash Laboratory Results Last 24 Hours Test 01/22/17 20:21 01/23/17 05:41 01/23/17 07:16 01/23/17 11:06 Bedside Glucose 149 mg/dl 97 mg/dl 93 mg/dl White Blood Count 9.42 K/uL Red Blood Count 3.65 M/uL Hemoglobin 10.6 g/dL Hematocrit 35.3 % Mean Corpuscular Volume 96.7 fL Mean Corpuscular Hemoglobin 29.0 pg Mean Corpuscular Hemoglobin Concent 30.0 g/dl Platelet Count 230 K/uL Mean Platelet Volume 9.4 fL Neutrophils (%) (Auto) 59.6 % Lymphocytes (%) (Auto) 26.9 % Monocytes (%) (Auto) 8.6 % Eosinophils (%) (Auto) 0.5 % Basophils (%) (Auto) 0.3 % Neutrophils # (Auto) 5.61 K/uL Lymphocytes # (Auto) 2.53 K/uL Monocytes # (Auto) 0.81 K/uL Eosinophils # (Auto) 0.05 K/uL Basophils # (Auto) 0.03 K/uL RDW Standard Deviation 67.3 fL RDW Coefficient of Variation 19.0 % Immature Granulocyte % (Auto) 4.1 % Immature Granulocyte # (Auto) 0.39 K/uL Nucleated RBC Absolute Count (auto) 0.06 K/uL Nucleated Red Blood Cells % 0.6 % Sodium Level 144 mmol/L Potassium Level 3.2 mmol/L Chloride Level 107 mmol/L Carbon Dioxide Level 29 mmol/L Anion Gap 8.0 mmol/L Blood Urea Nitrogen 22 mg/dl Creatinine 1.00 mg/dl Est Creatinine Clear Calc Drug Dose 47.1 ml/min Estimated GFR () 61.6 Estimated GFR (Non- 53.2 BUN/Creatinine Ratio 22.1 Random Glucose 83 mg/dl Calcium Level 8.7 mg/dl Assessment and Plan Acute on chronic diastolic CHF - decreased lasix dose to 40 mg PO daily, monitor renal function, replace potassium - Recent echo 11/2016 with 65-70% EF, no WMA - Cont metoprolol and statin - Recheck CXR today - Consult cardiologyappreciated Right lower chest pain, pleuritic with underlying pleural effusion -- worse with cough and deep breath - D/W Dr. Sandoval, obtain CXR 2 viewes -low dose NSAIDs - continue [place] / lidoderm patch Aspiration pneumonia/itis POA - Known to have aspirations - CT consistent with this - Pulmonary consulted, bronch completed with diffuse mucus plugs and oral secretions noted - Swallow evaluation 01/16 and video swallow 01/17 determined no aspiration - Cont pred taper - Finished 7 day course of antibx Hypothyroid - Cont levothyroxine - TSH WNL DVT ppx with lovenox DISPO: Pt agreed to rehab
[2017-01-23] MEDS: CALCIUM CARBONATE 1250MG TAB PO SCH (17:55)
[2017-01-23] MEDS: DICLOFENAC SOD 1% GEL 100 GM TUBE EXT SCH (21:16)
[2017-01-23] MEDS: ENOXAPARIN 40 MG/0.4 ML SYR SC SCH (21:18)
[2017-01-23] MEDS: SIMVASTATIN 20 MG TAB PO SCH (21:19)
[2017-01-23] MEDS: ROPINIROLE HCL 0.25 MG TAB PO SCH (21:22)
[2017-01-23] MEDS: INSULIN GLARGINE SOLOSTAR 100 UNITS/ML 3 ML PEN SC SCH (21:24)
[2017-01-24] VITALS (10 sets, daily range): BP systolic 119–154; BP diastolic 63–82; PULSE 78–96; TEMP 36.5–36.9; O2SAT 92–96
[2017-01-24] MEDS: ALBUT/IPRATROP 3MG/0.5MG NEB 3 ML VIAL INH SCH ×4 (01:52→20:41)
[2017-01-24] MEDS: LEVOTHYROXINE 88 MCG TAB PO SCH (05:55)
[2017-01-24 06:00] LABS: BASO % 0.5 %; BASO ABS # 0.04 K/uL (0-0.2); COMPLETE YES; EOS % 0.7 %; HEMATOCRIT 32.9 % (37-47); IG% 4.5 %; LYMPH % 21.8 %; LYMPH ABS # 1.75 K/uL (1.2-3.4); MEAN CELL VOLUME 95.6 fL (80-100); MEAN CORPUSCULAR HEMOGLOBIN 29.7 pg (25-34); MEAN PLATELET VOLUME 9.8 fL (7.4-10.4); MONO % 8.8 %; NEUT % 63.7 %; PLATELET COUNT 238 K/uL (130-400); RED BLOOD COUNT 3.44 M/uL (4.2-5.4); WHITE BLOOD COUNT 8.04 K/uL (4.8-10.8)
[2017-01-24 06:34] LABS: BUN/CREATININE RATIO 22.4 (10-20); CALCIUM 8.1 mg/dl (8.5-10.1); CREATININE 1.1 mg/dl (0.60-1.20); MAGNESIUM 2.1 mg/dl (1.8-2.4); POTASSIUM 3.3 mmol/L (3.5-5.1)
[2017-01-24 06:36] LABS: PHOSPHORUS 3.4 mg/dl (2.5-4.9)
[2017-01-24] MEDS ORDERED: NURSING VERBAL MED ORDER ONE (07:30)
[2017-01-24] MEDS ORDERED: POTASSIUM CHLORIDE 20 MEQ TABCR PO ONE (08:30)
[2017-01-24] MEDS: INSULIN ASPART 100 UNITS/ML 3 ML PEN SC SCH ×4 (09:05→20:59)
[2017-01-24] MEDS: FERROUS SULFATE 325 MG TAB PO SCH ×2 (09:06→17:41)
[2017-01-24] MEDS: CITALOPRAM 20 MG TAB PO SCH (09:07)
[2017-01-24] MEDS: MIDODRINE 2.5 MG TAB PO SCH ×3 (09:08→21:14)
[2017-01-24] MEDS: CYANOCOBALAMIN 500 MCG TAB (VIT B-12) PO SCH (09:09)
[2017-01-24] MEDS: POTASSIUM CHLORIDE 20 MEQ TABCR PO SCH (09:10)
[2017-01-24] MEDS: GUAIFENESIN 600 MG TABCR PO SCH ×2 (09:11→21:14)
[2017-01-24] MEDS: FUROSEMIDE 40 MG TAB PO SCH ×2 (09:11→22:31)
[2017-01-24] MEDS: GABAPENTIN 300 MG CAP PO SCH ×2 (09:11→21:14)
[2017-01-24] MEDS: PANTOprazole SOD 40 MG TAB PO SCH (09:12)
[2017-01-24] MEDS: CHOLECALCIFEROL 1000 INTER.UNIT TAB PO SCH (09:12)
[2017-01-24] MEDS: LIDODERM (LIDOCAINE) PATCH 5% TD SCH (09:14)
[2017-01-24] MEDS: PrednisoLONE ACET 1% OP SUSP 5 ML BTL OPL SCH ×4 (09:14→21:13)
[2017-01-24] MEDS: KETOROLAC 0.5% OP SOLN 3 ML BTL OPL SCH ×4 (09:15→21:13)
[2017-01-24] MEDS: TIOTROPIUM BROMIDE 5 PUFF/90 MCG INH INH SCH (09:16)
[2017-01-24] MEDS: KETOROLAC TROMETHAMINE 15 MG/ML VIAL IM SCH (09:16)
[2017-01-24] MEDS: HYDROCODONE/ACETAMINOPHEN 7.5/325MG TAB PO PRN ×2 (11:06→17:34)
--- NOTE | 2017-01-24 16:12 | Progress Note ---
Subjective Date of Service: January 24, 2017. Subjective Pt evaluation today including: conversation w/ patient, conversation w/ family , physical exam, chart review, lab review, review of inpatient medication list Problem List Medical Problems: (1) Cervical strain Status: Acute (2) Fall Status: Acute (3) Head injury Status: Acute (4) Head injury Status: Acute (5) Hip pain Status: Acute (6) Hypoxia Status: Acute (7) Hypoxia Status: Acute (8) Lower extremity edema Status: Acute (9) Pneumonia Status: Acute (10) Reactive airway disease Status: Acute (11) Sepsis Status: Acute (12) Syncope Status: Acute (13) Traumatic compression fracture of third thoracic vertebra Status: Acute Review of Systems Constitutional: No chills, No fatigue, No fever, No problem reported, No see HPI, No sweats, No weakness, No weight loss Eyes: No diplopia, No discharge, No eye pain, No problem reported, No redness, No see HPI, No worsening of vision ENT: No dental problems, No hearing loss, No nasal symptoms, No problem reported, No see HPI, No sore throat, No tinnitus, No trouble swallowing, No unusual epistaxis Respiratory: + cough, No dyspnea at rest, No dyspnea on exertion, No hemoptysis , No problem reported, No see HPI, No shortness of breath, No sputum, No wheezing Cardiac: + chest pain (right lower side of the chest), No PND, No claudication , No edema, No orthopnea, No palpitations, No problem reported, No see HPI Abdomen: No GI bleeding, No constipation, No diarrhea, No nausea, No pain, No problem reported, No see HPI, No vomiting Musculoskeletal: No calf pain, No joint pain, No muscle pain, No problem reported, No see HPI, No swelling Female : No abnormal vaginal bleeding, No dysuria, No hematuria, No incontinence, No problem reported, No see HPI, No urinary frequency, No vaginal discharge Neurologic: No balance problems, No memory loss, No numbness/tingling, No paralysis, No problem reported, No see HPI, No vertigo, No weakness Psychiatric: No anhedonism, No anxiety, No depression symptoms, No insomnia, No problem reported, No see HPI, No substance abuse Heme: No abnormal bleeding/bruising, No clotting problems, No night sweats, No problem reported, No see HPI, No swollen lymph nodes Endo: No excessive thirst, No excessive urination, No fatigue, No problem reported, No see HPI Skin: No bleeding, No color change, No itch, No new/changing skin lesions, No problem reported, No rash, No see HPI Medications Current Inpatient Medications Medications (Trade) Dose Ordered Sig/Natasha Route Start Time Stop Time Status Last Admin Dose Admin Enoxaparin Sodium (Lovenox Inj) 40 mg Q24H SC 01/14/17 21:00 02/13/17 20:59 01/23/17 21:18 40 MG Acetaminophen (Tylenol Tab) 650 mg Q4H PRN PO 01/14/17 18:00 02/13/17 17:59 01/18/17 15:32 650 MG Al Hydrox/Mg Hydrox/Simethicone (Maalox Max Susp) 15 ml Q4H PRN PO 01/14/17 18:00 02/13/17 17:59 Magnesium Hydroxide (Milk Of Magnesia Susp) 30 ml Q12H PRN PO 01/14/17 18:00 02/13/17 17:59 Ondansetron HCl (Zofran Inj) 4 mg Q6H PRN IV 01/14/17 18:00 02/13/17 17:59 Nitroglycerin (Nitrostat Tab) 0.4 mg UD PRN SL 01/14/17 18:00 02/13/17 17:59 Polyethylene (Miralax Powder Packet) 17 gm DAILY PRN PO 01/14/17 18:00 02/13/17 17:59 01/21/17 16:22 17 GM Cholecalciferol (Vitamin D Tab) 1,000 inter.unit QAM PO 01/15/17 09:00 02/14/17 08:59 01/24/17 09:12 1,000 INTER.UNIT Citalopram Hydrobromide (celeXA TAB) 30 mg QAM PO 01/18/17 09:00 02/17/17 08:59 01/24/17 09:07 30 MG Cyanocobalamin (Vitamin B-12 Tab) 1,000 mcg QAM PO 01/15/17 09:00 02/14/17 08:59 01/24/17 09:09 1,000 MCG Gabapentin (Neurontin Cap) 300 mg BID PO 01/14/17 21:00 02/13/17 20:59 01/24/17 09:11 300 MG Albuterol/ Ipratropium (Duoneb) 3 ml Q6R INH 01/14/17 21:00 02/13/17 20:59 01/24/17 14:56 3 ML Ketorolac Tromethamine (Acular 0.5 Oph Soln) 1 drops QID OPL 01/14/17 21:00 02/13/17 20:59 01/24/17 12:49 1 DROPS Levothyroxine Sodium (Synthroid Tab) 88 mcg DAILYBB PO 01/15/17 06:00 02/14/17 05:59 01/24/17 05:55 88 MCG Midodrine (Proamatine Tab) 2.5 mg TID PO 01/14/17 21:00 02/13/17 20:59 01/24/17 13:57 2.5 MG Prednisolone Acetate (Pred Forte 1% Oph Susp) 1 drops QID OPL 01/14/17 21:00 02/13/17 20:59 01/24/17 12:49 1 DROPS Ropinirole HCl (Requip Tab) 0.5 mg HS PO 01/14/17 21:00 02/13/17 20:59 01/23/17 21:22 0.5 MG Senna/Docusate Sodium (Senokot S Tab) 1 tab QAM PRN PO 01/14/17 18:00 02/13/17 17:59 01/22/17 08:48 1 TAB Simvastatin (Zocor Tab) 20 mg HS PO 01/14/17 21:00 02/13/17 20:59 01/23/17 21:19 20 MG Acetaminophen/ Butalbital/ Caffeine (Fioricet Tab) 1 tab Q4H PRN PO 01/14/17 18:00 02/13/17 17:59 01/21/17 03:11 1 TAB Calcium Carbonate (oS-Misael 500 TAB) 1,250 mg DAILY@1800 PO 01/15/17 18:00 02/14/17 17:59 01/23/17 17:55 1,250 MG Guaifenesin (Mucinex Contr Rel Tab) 1,200 mg Q12 PO 01/14/17 21:00 02/13/17 20:59 01/24/17 09:11 1,200 MG Pantoprazole Sodium (Protonix Tab) 40 mg QAM PO 01/15/17 09:00 02/14/17 08:59 01/24/17 09:12 40 MG Potassium Chloride (Klor-Con Tab) 20 meq QAM PO 01/15/17 09:00 02/14/17 08:59 01/24/17 09:10 20 MEQ Tiotropium [place] (Spiriva Handihaler Inhaler) 1 puff QAM INH 01/15/17 09:00 02/14/17 08:59 01/24/17 09:16 1 PUFF Insulin Glargine (Lantus Solostar Pen) 10 unit HS SC 01/14/17 21:00 02/13/17 20:59 01/23/17 21:24 10 UNIT Insulin Aspart (novoLOG ASPART) SLIDING SCALE G... ACHS SC 01/14/17 21:00 02/13/17 20:59 01/24/17 12:49 4 UNITS Ferrous Sulfate (Feosol Tab) 325 mg BIDM PO 01/16/17 16:45 02/15/17 16:44 01/24/17 09:06 325 MG Prednisone (PredniSONE TAB) 40 mg DAILY PO 01/18/17 09:00 02/17/17 08:59 01/24/17 09:08 40 MG Glucose (Glucose 40% Gel) 15-30 GRAMS 15 GRAMS... UD PRN PO 01/18/17 10:30 02/17/17 10:29 Glucose (Glucose Chew Tab) 4-8 Tablets 4 Tabl... UD PRN PO 01/18/17 10:30 02/17/17 10:29 Dextrose (Dextrose 50% 50ML Syringe) 25-50ML OF 50% DW IV FOR... UD PRN IV 01/18/17 10:30 02/17/17 10:29 Glucagon (Glucagon Inj) 1 mg UD PRN SQ 01/18/17 10:30 02/17/17 10:29 Guaifenesin (Robitussin Sugar Free Syrup) 100 mg Q6H PRN PO 01/18/17 15:45 02/17/17 15:44 01/22/17 08:48 100 MG Acetaminophen/ Hydrocodone Bitart ([place] 7.5/325 Tab) 1 tab Q4H PRN PO 01/18/17 16:45 02/01/17 16:44 01/24/17 11:06 1 TAB Diclofenac Sodium (Voltaren 1% Top Gel) 1 appln HS EXT 01/20/17 21:00 02/19/17 20:59 01/23/17 21:16 1 APPLN Lidocaine (Lidoderm Patch 5%) 1 patch QAM TD 01/21/17 09:00 02/20/17 08:59 01/24/17 09:14 1 PATCH Miscellaneous (Remove Lidoderm Patch) 1 ea DAILY@2100 N/A 01/20/17 21:00 02/19/17 20:59 01/23/17 21:24 1 EA Furosemide (Lasix Tab) 40 mg BID PO 01/23/17 21:00 02/22/17 20:59 01/24/17 09:11 40 MG Objective Vital Signs Date Time Temp Pulse Resp B/P Pulse Ox O2 Delivery O2 Flow Rate FiO2 01/24/17 15:27 36.9 92 18 140/63 93 Room Air 01/24/17 14:56 86 16 95 Room Air 01/24/17 13:56 36.5 95 20 119/71 94 Room Air 01/24/17 10:30 78 18 146/78 96 Room Air 01/24/17 08:00 Room Air 01/24/17 07:19 36.8 81 18 154/82 95 Room Air 01/24/17 06:55 83 16 94 Room Air 01/24/17 00:00 Room Air 01/23/17 23:35 36.8 90 16 116/70 92 Room Air 01/23/17 20:05 Room Air 01/23/17 19:35 91 16 95 Room Air Physical Exam General Appearance: WD/WN, no apparent distress, + obese Eyes: normal inspection, EOMI ENT: normal ENT inspection, hearing grossly normal Neck: supple Respiratory/Chest: chest non-tender, lungs clear, normal breath sounds, no respiratory distress Cardiovascular: regular rate, rhythm, no edema, no gallop, no JVD Abdomen: normal bowel sounds, non tender, soft Extremities: normal range of motion, non-tender, normal inspection, no pedal edema 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, no motor/sensory deficits, alert, normal mood/affect, oriented x 3 Skin: normal color, warm/dry, no rash Laboratory Results Last 24 Hours Test 01/23/17 16:10 01/23/17 20:20 01/24/17 05:14 01/24/17 07:30 Bedside Glucose 161 mg/dl 129 mg/dl 91 mg/dl White Blood Count 8.04 K/uL Red Blood Count 3.44 M/uL Hemoglobin 10.2 g/dL Hematocrit 32.9 % Mean Corpuscular Volume 95.6 fL Mean Corpuscular Hemoglobin 29.7 pg Mean Corpuscular Hemoglobin Concent 31.0 g/dl Platelet Count 238 K/uL Mean Platelet Volume 9.8 fL Neutrophils (%) (Auto) 63.7 % Lymphocytes (%) (Auto) 21.8 % Monocytes (%) (Auto) 8.8 % Eosinophils (%) (Auto) 0.7 % Basophils (%) (Auto) 0.5 % Neutrophils # (Auto) 5.12 K/uL Lymphocytes # (Auto) 1.75 K/uL Monocytes # (Auto) 0.71 K/uL Eosinophils # (Auto) 0.06 K/uL Basophils # (Auto) 0.04 K/uL RDW Standard Deviation 65.7 fL RDW Coefficient of Variation 19.0 % Immature Granulocyte % (Auto) 4.5 % Immature Granulocyte # (Auto) 0.36 K/uL Nucleated RBC Absolute Count (auto) 0.03 K/uL Nucleated Red Blood Cells % 0.4 % Sodium Level 142 mmol/L Potassium Level 3.3 mmol/L Chloride Level 104 mmol/L Carbon Dioxide Level 32 mmol/L Anion Gap 6.0 mmol/L Blood Urea Nitrogen 25 mg/dl Creatinine 1.10 mg/dl Est Creatinine Clear Calc Drug Dose 42.7 ml/min Estimated GFR () 54.9 Estimated GFR (Non- 47.4 BUN/Creatinine Ratio 22.4 Random Glucose 86 mg/dl Calcium Level 8.1 mg/dl Phosphorus Level 3.4 mg/dl Magnesium Level 2.1 mg/dl Total Bilirubin 0.5 mg/dl Aspartate Amino Transf (AST/SGOT) 11 U/L Alanine Aminotransferase (ALT/SGPT) 32 U/L Alkaline Phosphatase 66 U/L Total Protein 6.2 gm/dl Albumin 3.1 gm/dl Globulin 3.1 gm/dl Albumin/Globulin Ratio 1.0 Test 01/24/17 11:14 Bedside Glucose 96 mg/dl Assessment and Plan Acute on chronic diastolic CHF - decreased lasix dose to 40 mg PO daily, monitor renal function, replace potassium - Recent echo 11/2016 with 65-70% EF, no WMA - Cont metoprolol and statin - Recheck CXR today - Consult cardiology appreciated Right lower chest pain, pleuritic with underlying pleural effusion -- worse with cough and deep breath - D/W Dr. Sandoval, obtain CXR 2 views that showed small effusion -low dose NSAIDs - continue [place] / lidoderm patch - Low dose toradol bid Aspiration pneumonia/itis POA - Known to have aspirations - CT consistent with this - Pulmonary consulted, bronch completed with diffuse mucus plugs and oral secretions noted - Swallow evaluation 01/16 and video swallow 01/17 determined no aspiration - Cont pred taper - Finished 7 day course of antibx Hypothyroid - Cont levothyroxine - TSH WNL severe deconditioning - needs more rehab DVT ppx with lovenox DISPO: Pt agreed to rehab
[2017-01-24] MEDS: CALCIUM CARBONATE 1250MG TAB PO SCH (17:43)
[2017-01-24] MEDS: GUAIFENESIN SUGAR FREE 100 MG/5 ML UDC PO PRN (17:44)
[2017-01-24] MEDS: DICLOFENAC SOD 1% GEL 100 GM TUBE EXT SCH (21:13)
[2017-01-24] MEDS: SIMVASTATIN 20 MG TAB PO SCH (21:15)
[2017-01-24] MEDS: ROPINIROLE HCL 0.25 MG TAB PO SCH (21:15)
[2017-01-24] MEDS: INSULIN GLARGINE SOLOSTAR 100 UNITS/ML 3 ML PEN SC SCH (21:30)
[2017-01-24] MEDS: ENOXAPARIN 40 MG/0.4 ML SYR SC SCH (21:31)
[2017-01-24] MEDS: SPIRONOLACTONE 25 MG TAB PO SCH (22:31)
[2017-01-25] MEDS: ALBUT/IPRATROP 3MG/0.5MG NEB 3 ML VIAL INH SCH ×4 (02:07→19:22)
[2017-01-25] MEDS: LEVOTHYROXINE 88 MCG TAB PO SCH (05:18)
[2017-01-25 06:36] LABS: BASO % 0.3 %; BASO ABS # 0.03 K/uL (0-0.2); COMPLETE YES; EOS % 0.4 %; HEMATOCRIT 36.2 % (37-47); IG% 2.7 %; LYMPH % 18.8 %; LYMPH ABS # 1.92 K/uL (1.2-3.4); MEAN CELL VOLUME 95.8 fL (80-100); MEAN CORPUSCULAR HEMOGLOBIN 29.4 pg (25-34); MEAN CORPUSCULAR HGB CONC 30.7 g/dl (32-36); MEAN PLATELET VOLUME 9.6 fL (7.4-10.4); MONO % 7.9 %; NEUT % 69.9 %; PLATELET COUNT 276 K/uL (130-400); RED BLOOD COUNT 3.78 M/uL (4.2-5.4)
[2017-01-25 07:04] VITALS: BP 152/83; PULSE 88; TEMP 37; O2SAT 95
[2017-01-25 07:11] LABS: BUN/CREATININE RATIO 24.1 (10-20); CALCIUM 8.6 mg/dl (8.5-10.1); CREATININE 1.2 mg/dl (0.60-1.20); MAGNESIUM 2.1 mg/dl (1.8-2.4); POTASSIUM 3.5 mmol/L (3.5-5.1)
[2017-01-25 07:14] LABS: PHOSPHORUS 3.3 mg/dl (2.5-4.9)
[2017-01-25 07:16] VITALS: PULSE 71; O2SAT 95
[2017-01-25 08:00] VITALS: O2SAT 95
--- NOTE | 2017-01-25 08:46 | CARDIOLOGY PROGRESS NOTE ---
DATE: 01/25/2017 DATE: 01/25/2017. TIME: 8:08 a.m. SUBJECTIVE: Ms. Philip states that she was out of bed early this morning because she was short of breath overnight. She continues to have bouts of shortness of breath. She states that she does have some better episodes as far as her breathing goes, but all in all continues to feel similar to when she arrived. She denies chest pain. She does have some right-sided abdominal pain. She denies syncope, near syncope, palpitations or edema. She continues to feel as though her abdomen is distended. OBJECTIVE: VITAL SIGNS: Temperature 37 degrees, heart rate 71 beats per minute, respiration rate 12, blood pressure 152/83 mmHg; however, her blood pressure has been mostly normotensive over the past 24 hours. Oxygen saturation 95% on room air. I's and O's negative 1.3 liters yesterday cumulative fluid balance for this hospital stay is negative 15.6 liters. Weight 90.7 kg. GENERAL: No acute distress. She is alert. NECK: Is thick. Cannot appreciate JVD. CARDIAC EXAMINATION: No ventricular heave. Regular, normal S1, S2. No audible murmurs, rubs or gallops. LUNGS: Clear to auscultation bilaterally. ABDOMEN: Right upper quadrant abdominal pain. Abdomen is mildly distended. No masses were palpated. No bruits noted. EXTREMITIES: Trace pedal edema bilaterally. No cyanosis. PSYCHIATRIC: Affect appears appropriate. MEDICATIONS: Include Lovenox 40 mg subQ q. 24 hours, Lasix 40 mg p.o. b.i.d., levothyroxine 88 mcg daily, midodrine 2.5 mg p.o. t.i.d., Protonix 40 mg daily, potassium chloride 20 mEq daily, prednisone 40 mg daily, simvastatin 20 mg daily, spironolactone 25 mg p.o. b.i.d. LABORATORY DATA: Sodium 140, potassium 3.5, BUN 29, creatinine 1.2. AST 10, ALT 34, albumin 3.6. White blood cell count 10.2, hemoglobin 11.1, platelets 276. Bronchial washings culture Rabia albicans from right middle lobe. Blood cultures have been negative. ASSESSMENT AND PLAN: 1. Shortness of breath: Likely multifactorial. Pulmonology suspects chronic aspiration. Her brain natriuretic peptide has consistently been below 300. CT scan demonstrated moderate amount of mucoid material within the trachea resulting in 50% narrowing. There is no evidence of pulmonary edema on CT scan report and no pulmonary embolus. Her symptoms are not improving significantly according to what she reports. Continue to follow with pulmonology. Despite diuretics, she has no significant improvement in her breathing. 2. Hypervolemia: Her BNP was less than 300, which makes heart failure very unlikely. She also does not examine well for hypervolemia, although she feels as though her abdomen is mostly fluid retention. Continue diuretics until renal function is evident of more significant azotemia. Steroidal treatment can cause some fluid retention. 3. Orthostatic hypotension: Monitor for worsening symptoms with diuretics, but she appears to be tolerating them so far. Can continue midodrine. 4. Hypertension: She was intermittently hypertensive but with orthostatic hypotension history, will have to accept some degree of hypertension. 5. Abdominal Pain: Uncertain etiology. Had ultrasound few months ago. Will repeat. Further evaluation will be deferred to primary service. 6. Disposition: Cardiology will continue to follow. I will be away tomorrow and if there are any questions or concerns tomorrow please do not hesitate to call the on-call community health director from [facility]. BREANA
[2017-01-25] MEDS: PrednisoLONE ACET 1% OP SUSP 5 ML BTL OPL SCH ×4 (09:56→23:08)
[2017-01-25] MEDS: KETOROLAC 0.5% OP SOLN 3 ML BTL OPL SCH ×4 (09:57→23:08)
[2017-01-25] MEDS: LIDODERM (LIDOCAINE) PATCH 5% TD SCH (09:57)
[2017-01-25] MEDS: INSULIN ASPART 100 UNITS/ML 3 ML PEN SC SCH ×4 (09:59→21:00)
[2017-01-25] MEDS: CITALOPRAM 20 MG TAB PO SCH (10:00)
[2017-01-25] MEDS: CYANOCOBALAMIN 500 MCG TAB (VIT B-12) PO SCH (10:02)
[2017-01-25] MEDS: FUROSEMIDE 40 MG TAB PO SCH ×2 (10:03→23:05)
[2017-01-25] MEDS: SPIRONOLACTONE 25 MG TAB PO SCH ×2 (10:03→23:05)
[2017-01-25] MEDS: CHOLECALCIFEROL 1000 INTER.UNIT TAB PO SCH (10:03)
[2017-01-25] MEDS: MIDODRINE 2.5 MG TAB PO SCH ×3 (10:04→23:05)
[2017-01-25] MEDS: GUAIFENESIN 600 MG TABCR PO SCH ×2 (10:04→23:06)
[2017-01-25] MEDS: POTASSIUM CHLORIDE 20 MEQ TABCR PO SCH (10:05)
[2017-01-25] MEDS: FERROUS SULFATE 325 MG TAB PO SCH ×2 (10:05→18:27)
[2017-01-25] MEDS: GABAPENTIN 300 MG CAP PO SCH ×2 (10:05→23:06)
[2017-01-25] MEDS: TIOTROPIUM BROMIDE 5 PUFF/90 MCG INH INH SCH (10:06)
[2017-01-25] MEDS: PANTOprazole SOD 40 MG TAB PO SCH (10:09)
[2017-01-25] MEDS ORDERED: NAPR-1221 PO (11:26)
--- NOTE | 2017-01-25 13:42 | DIAGNOSTIC IMAGING REPORT ---
ABDOMINAL ULTRASOUND COMPLETE HISTORY: Generalized abdominal pain. COMPARISON: Abdominal ultrasound 05/09/2016. FINDINGS: Pancreas: The pancreatic tail is obscured by overlying bowel gas. The remaining portions of the pancreas are within normal limits. Liver: The liver is echogenic consistent with fatty change. Gallbladder: No gallbladder wall thickening. No gallstones. CBD: 4 mm. Kidneys: No hydronephrosis. Spleen: Normal in size. Aorta: Proximal to mid abdominal aorta is normal in caliber. Distal abdominal aorta obscured by overlying bowel gas. IMPRESSION: 1. Hepatic steatosis. 2. Normal gallbladder. No gallstones. Electronically signed by: Jeff Maldonado M.D. 01/25/2017 1:40 PM Dictated Date/Time: 01/25/2017 1:37 PM
[2017-01-25 15:16] VITALS: BP 164/90; PULSE 111; TEMP 37.2; O2SAT 93
--- NOTE | 2017-01-25 18:14 | Progress Note ---
Subjective Date of Service: January 25, 2017. Subjective Pt evaluation today including: conversation w/ patient, conversation w/ family , physical exam, chart review, lab review, review of inpatient medication list Problem List Medical Problems: (1) Cervical strain Status: Acute (2) Fall Status: Acute (3) Head injury Status: Acute (4) Head injury Status: Acute (5) Hip pain Status: Acute (6) Hypoxia Status: Acute (7) Hypoxia Status: Acute (8) Lower extremity edema Status: Acute (9) Pneumonia Status: Acute (10) Reactive airway disease Status: Acute (11) Sepsis Status: Acute (12) Syncope Status: Acute (13) Traumatic compression fracture of third thoracic vertebra Status: Acute Review of Systems Constitutional: No chills, No fatigue, No fever, No problem reported, No see HPI, No sweats, No weakness, No weight loss Eyes: No diplopia, No discharge, No eye pain, No problem reported, No redness, No see HPI, No worsening of vision ENT: No dental problems, No hearing loss, No nasal symptoms, No problem reported, No see HPI, No sore throat, No tinnitus, No trouble swallowing, No unusual epistaxis Respiratory: No cough, No dyspnea at rest, No dyspnea on exertion, No hemoptysis, No problem reported, No see HPI, No shortness of breath, No sputum, No wheezing Cardiac: + chest pain (pleuritic in lower right chest), No PND, No claudication , No edema, No orthopnea, No palpitations, No problem reported, No see HPI Abdomen: No GI bleeding, No constipation, No diarrhea, No nausea, No pain, No problem reported, No see HPI, No vomiting Female : No abnormal vaginal bleeding, No dysuria, No hematuria, No incontinence, No problem reported, No see HPI, No urinary frequency, No vaginal discharge Neurologic: No balance problems, No memory loss, No numbness/tingling, No paralysis, No problem reported, No see HPI, No vertigo, No weakness Psychiatric: No anhedonism, No anxiety, No depression symptoms, No insomnia, No problem reported, No see HPI, No substance abuse Heme: No abnormal bleeding/bruising, No clotting problems, No night sweats, No problem reported, No see HPI, No swollen lymph nodes Endo: No excessive thirst, No excessive urination, No fatigue, No problem reported, No see HPI Skin: No bleeding, No color change, No itch, No new/changing skin lesions, No problem reported, No rash, No see HPI Medications Current Inpatient Medications Medications (Trade) Dose Ordered Sig/Natasha Route Start Time Stop Time Status Last Admin Dose Admin Enoxaparin Sodium (Lovenox Inj) 40 mg Q24H SC 01/14/17 21:00 02/13/17 20:59 01/24/17 21:31 40 MG Acetaminophen (Tylenol Tab) 650 mg Q4H PRN PO 01/14/17 18:00 02/13/17 17:59 01/18/17 15:32 650 MG Al Hydrox/Mg Hydrox/Simethicone (Maalox Max Susp) 15 ml Q4H PRN PO 01/14/17 18:00 02/13/17 17:59 Magnesium Hydroxide (Milk Of Magnesia Susp) 30 ml Q12H PRN PO 01/14/17 18:00 02/13/17 17:59 Ondansetron HCl (Zofran Inj) 4 mg Q6H PRN IV 01/14/17 18:00 02/13/17 17:59 Nitroglycerin (Nitrostat Tab) 0.4 mg UD PRN SL 01/14/17 18:00 02/13/17 17:59 Polyethylene (Miralax Powder Packet) 17 gm DAILY PRN PO 01/14/17 18:00 02/13/17 17:59 01/21/17 16:22 17 GM Cholecalciferol (Vitamin D Tab) 1,000 inter.unit QAM PO 01/15/17 09:00 02/14/17 08:59 01/25/17 10:03 1,000 INTER.UNIT Citalopram Hydrobromide (celeXA TAB) 30 mg QAM PO 01/18/17 09:00 02/17/17 08:59 01/25/17 10:00 30 MG Cyanocobalamin (Vitamin B-12 Tab) 1,000 mcg QAM PO 01/15/17 09:00 02/14/17 08:59 01/25/17 10:02 1,000 MCG Gabapentin (Neurontin Cap) 300 mg BID PO 01/14/17 21:00 02/13/17 20:59 01/25/17 10:05 300 MG Albuterol/ Ipratropium (Duoneb) 3 ml Q6R INH 01/14/17 21:00 02/13/17 20:59 01/25/17 07:15 3 ML Ketorolac Tromethamine (Acular 0.5 Oph Soln) 1 drops QID OPL 01/14/17 21:00 02/13/17 20:59 01/25/17 13:50 1 DROPS Levothyroxine Sodium (Synthroid Tab) 88 mcg DAILYBB PO 01/15/17 06:00 02/14/17 05:59 01/25/17 05:18 88 MCG Midodrine (Proamatine Tab) 2.5 mg TID PO 01/14/17 21:00 02/13/17 20:59 01/25/17 14:31 2.5 MG Prednisolone Acetate (Pred Forte 1% Oph Susp) 1 drops QID OPL 01/14/17 21:00 02/13/17 20:59 01/25/17 13:48 1 DROPS Ropinirole HCl (Requip Tab) 0.5 mg HS PO 01/14/17 21:00 02/13/17 20:59 01/24/17 21:15 0.5 MG Senna/Docusate Sodium (Senokot S Tab) 1 tab QAM PRN PO 01/14/17 18:00 02/13/17 17:59 01/22/17 08:48 1 TAB Simvastatin (Zocor Tab) 20 mg HS PO 01/14/17 21:00 02/13/17 20:59 01/24/17 21:15 20 MG Acetaminophen/ Butalbital/ Caffeine (Fioricet Tab) 1 tab Q4H PRN PO 01/14/17 18:00 02/13/17 17:59 01/21/17 03:11 1 TAB Calcium Carbonate (oS-Misael 500 TAB) 1,250 mg DAILY@1800 PO 01/15/17 18:00 02/14/17 17:59 01/24/17 17:43 1,250 MG Guaifenesin (Mucinex Contr Rel Tab) 1,200 mg Q12 PO 01/14/17 21:00 02/13/17 20:59 01/25/17 10:04 1,200 MG Pantoprazole Sodium (Protonix Tab) 40 mg QAM PO 01/15/17 09:00 02/14/17 08:59 01/25/17 10:09 40 MG Potassium Chloride (Klor-Con Tab) 20 meq QAM PO 01/15/17 09:00 02/14/17 08:59 01/25/17 10:05 20 MEQ Tiotropium [place] (Spiriva Handihaler Inhaler) 1 puff QAM INH 01/15/17 09:00 02/14/17 08:59 01/25/17 10:06 1 PUFF Insulin Glargine (Lantus Solostar Pen) 10 unit HS SC 01/14/17 21:00 02/13/17 20:59 01/24/17 21:30 10 UNIT Insulin Aspart (novoLOG ASPART) SLIDING SCALE G... ACHS SC 01/14/17 21:00 02/13/17 20:59 01/25/17 14:35 7 UNITS Ferrous Sulfate (Feosol Tab) 325 mg BIDM PO 01/16/17 16:45 02/15/17 16:44 01/25/17 10:05 325 MG Prednisone (PredniSONE TAB) 40 mg DAILY PO 01/18/17 09:00 02/17/17 08:59 01/25/17 10:11 40 MG Glucose (Glucose 40% Gel) 15-30 GRAMS 15 GRAMS... UD PRN PO 01/18/17 10:30 02/17/17 10:29 Glucose (Glucose Chew Tab) 4-8 Tablets 4 Tabl... UD PRN PO 01/18/17 10:30 02/17/17 10:29 Dextrose (Dextrose 50% 50ML Syringe) 25-50ML OF 50% DW IV FOR... UD PRN IV 01/18/17 10:30 02/17/17 10:29 Glucagon (Glucagon Inj) 1 mg UD PRN SQ 01/18/17 10:30 02/17/17 10:29 Guaifenesin (Robitussin Sugar Free Syrup) 100 mg Q6H PRN PO 01/18/17 15:45 02/17/17 15:44 01/24/17 17:44 100 MG Acetaminophen/ Hydrocodone Bitart ([place] 7.5/325 Tab) 1 tab Q4H PRN PO 01/18/17 16:45 02/01/17 16:44 01/24/17 17:34 1 TAB Diclofenac Sodium (Voltaren 1% Top Gel) 1 appln HS EXT 01/20/17 21:00 02/19/17 20:59 01/24/17 21:13 1 APPLN Lidocaine (Lidoderm Patch 5%) 1 patch QAM TD 01/21/17 09:00 02/20/17 08:59 01/25/17 09:57 1 PATCH Miscellaneous (Remove Lidoderm Patch) 1 ea DAILY@2100 N/A 01/20/17 21:00 02/19/17 20:59 01/24/17 21:13 1 EA Furosemide (Lasix Tab) 40 mg BID PO 01/23/17 21:00 02/22/17 20:59 01/25/17 10:03 40 MG Spironolactone (Aldactone Tab) 25 mg BID PO 01/24/17 21:00 02/23/17 20:59 01/25/17 10:03 25 MG Objective Vital Signs Date Time Temp Pulse Resp B/P Pulse Ox O2 Delivery O2 Flow Rate FiO2 01/25/17 15:16 37.2 111 18 164/90 93 Room Air 01/25/17 08:00 95 Room Air 01/25/17 07:16 71 12 95 Room Air 01/25/17 07:04 37.0 88 18 152/83 95 Room Air 01/25/17 00:00 Room Air 01/24/17 23:44 36.5 84 18 126/72 92 Room Air 01/24/17 21:04 96 121/68 01/24/17 19:10 80 16 95 Room Air Physical Exam General Appearance: WD/WN, no apparent distress Eyes: normal inspection, EOMI ENT: normal ENT inspection, hearing grossly normal Neck: supple Respiratory/Chest: lungs clear, normal breath sounds, no respiratory distress, no accessory muscle use, + pertinent finding (tender right lower chest wall) Cardiovascular: regular rate, rhythm, no edema, no gallop, no JVD Abdomen: normal bowel sounds, non tender, soft, no organomegaly Extremities: normal range of motion, non-tender, normal inspection, no pedal edema, no calf tenderness 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, no motor/sensory deficits, alert, normal mood/affect, oriented x 3 Skin: normal color, warm/dry, no rash Laboratory Results Last 24 Hours Test 01/24/17 20:24 01/25/17 06:24 01/25/17 07:36 01/25/17 11:17 Bedside Glucose 140 mg/dl 89 mg/dl 115 mg/dl White Blood Count 10.20 K/uL Red Blood Count 3.78 M/uL Hemoglobin 11.1 g/dL Hematocrit 36.2 % Mean Corpuscular Volume 95.8 fL Mean Corpuscular Hemoglobin 29.4 pg Mean Corpuscular Hemoglobin Concent 30.7 g/dl Platelet Count 276 K/uL Mean Platelet Volume 9.6 fL Neutrophils (%) (Auto) 69.9 % Lymphocytes (%) (Auto) 18.8 % Monocytes (%) (Auto) 7.9 % Eosinophils (%) (Auto) 0.4 % Basophils (%) (Auto) 0.3 % Neutrophils # (Auto) 7.12 K/uL Lymphocytes # (Auto) 1.92 K/uL Monocytes # (Auto) 0.81 K/uL Eosinophils # (Auto) 0.04 K/uL Basophils # (Auto) 0.03 K/uL RDW Standard Deviation 66.2 fL RDW Coefficient of Variation 19.0 % Immature Granulocyte % (Auto) 2.7 % Immature Granulocyte # (Auto) 0.28 K/uL Nucleated RBC Absolute Count (auto) 0.04 K/uL Nucleated Red Blood Cells % 0.4 % Sodium Level 140 mmol/L Potassium Level 3.5 mmol/L Chloride Level 102 mmol/L Carbon Dioxide Level 30 mmol/L Anion Gap 8.0 mmol/L Blood Urea Nitrogen 29 mg/dl Creatinine 1.20 mg/dl Est Creatinine Clear Calc Drug Dose 39.2 ml/min Estimated GFR () 49.4 Estimated GFR (Non- 42.7 BUN/Creatinine Ratio 24.1 Random Glucose 81 mg/dl Calcium Level 8.6 mg/dl Phosphorus Level 3.3 mg/dl Magnesium Level 2.1 mg/dl Total Bilirubin 0.6 mg/dl Aspartate Amino Transf (AST/SGOT) 10 U/L Alanine Aminotransferase (ALT/SGPT) 34 U/L Alkaline Phosphatase 70 U/L Total Protein 7.2 gm/dl Albumin 3.6 gm/dl Globulin 3.6 gm/dl Albumin/Globulin Ratio 1.0 Test 01/25/17 16:32 Bedside Glucose 141 mg/dl Assessment and Plan Awaiting appeal to go to rehab Acute on chronic diastolic CHF - decreased lasix dose to 40 mg PO daily, monitor renal function, replace potassium - Recent echo 11/2016 with 65-70% EF, no WMA - Cont metoprolol and statin - Recheck CXR today - Consult cardiology appreciated Right lower chest pain, pleuritic with underlying pleural effusion -- worse with cough and deep breath - D/W Dr. Sandoval, obtain CXR 2 views that showed small effusion -low dose NSAIDs for few days only, with monitoring renal function - continue [place] / lidoderm patch - Low dose toradol bid Aspiration pneumonia/itis POA - Known to have aspirations - CT consistent with this - Pulmonary consulted, bronch completed with diffuse mucus plugs and oral secretions noted - Swallow evaluation 01/16 and video swallow 01/17 determined no aspiration - Cont pred taper - Finished 7 day course of antibx Hypothyroid - Cont levothyroxine - TSH WNL severe deconditioning - needs more rehab DVT ppx with lovenox DISPO: Pt agreed to rehab
[2017-01-25] MEDS: CALCIUM CARBONATE 1250MG TAB PO SCH (18:27)
[2017-01-25 19:23] VITALS: PULSE 87; O2SAT 96
[2017-01-25] MEDS ORDERED: NURSING VERBAL MED ORDER ONE (20:45)
[2017-01-25] MEDS ORDERED: MICONAZOLE NITRATE POWDER 43 GM EXT PRN (21:00)
[2017-01-25] MEDS: SIMVASTATIN 20 MG TAB PO SCH (23:06)
[2017-01-25] MEDS: ROPINIROLE HCL 0.25 MG TAB PO SCH (23:06)
[2017-01-25] MEDS: ENOXAPARIN 40 MG/0.4 ML SYR SC SCH (23:07)
[2017-01-25] MEDS: DICLOFENAC SOD 1% GEL 100 GM TUBE EXT SCH (23:11)
[2017-01-25] MEDS: INSULIN GLARGINE SOLOSTAR 100 UNITS/ML 3 ML PEN SC SCH (23:14)
[2017-01-26] VITALS (9 sets, daily range): BP systolic 115–175; BP diastolic 70–98; PULSE 82–108; TEMP 36.5–37.1; O2SAT 91–95
[2017-01-26] MEDS: GUAIFENESIN SUGAR FREE 100 MG/5 ML UDC PO PRN (00:22)
[2017-01-26] MEDS: ALBUT/IPRATROP 3MG/0.5MG NEB 3 ML VIAL INH SCH ×4 (01:47→19:25)
[2017-01-26] MEDS: LEVOTHYROXINE 88 MCG TAB PO SCH (06:45)
[2017-01-26 08:31] LABS: BASO % 0.2 %; BASO ABS # 0.02 K/uL (0-0.2); COMPLETE YES; EOS % 0.4 %; HEMATOCRIT 37.1 % (37-47); IG% 1.9 %; LYMPH % 20.4 %; MEAN CELL VOLUME 96.4 fL (80-100); MEAN CORPUSCULAR HEMOGLOBIN 30.1 pg (25-34); MEAN CORPUSCULAR HGB CONC 31.3 g/dl (32-36); MEAN PLATELET VOLUME 10.2 fL (7.4-10.4); MONO % 7.1 %; PLATELET COUNT 294 K/uL (130-400); RED BLOOD COUNT 3.85 M/uL (4.2-5.4); WHITE BLOOD COUNT 11.27 K/uL (4.8-10.8)
[2017-01-26] MEDS: CITALOPRAM 20 MG TAB PO SCH (08:32)
[2017-01-26] MEDS: CHOLECALCIFEROL 1000 INTER.UNIT TAB PO SCH (08:32)
[2017-01-26] MEDS: GABAPENTIN 300 MG CAP PO SCH ×2 (08:32→21:07)
[2017-01-26] MEDS: MIDODRINE 2.5 MG TAB PO SCH ×3 (08:32→21:11)
[2017-01-26] MEDS: CYANOCOBALAMIN 500 MCG TAB (VIT B-12) PO SCH (08:32)
[2017-01-26] MEDS: POTASSIUM CHLORIDE 20 MEQ TABCR PO SCH (08:33)
[2017-01-26] MEDS: FUROSEMIDE 40 MG TAB PO SCH (08:33)
[2017-01-26] MEDS: INSULIN ASPART 100 UNITS/ML 3 ML PEN SC SCH ×4 (08:35→21:25)
[2017-01-26] MEDS: PANTOprazole SOD 40 MG TAB PO SCH (08:35)
[2017-01-26] MEDS: LIDODERM (LIDOCAINE) PATCH 5% TD SCH (08:36)
[2017-01-26] MEDS: SPIRONOLACTONE 25 MG TAB PO SCH ×2 (08:37→21:09)
[2017-01-26] MEDS: FERROUS SULFATE 325 MG TAB PO SCH ×2 (08:38→18:22)
[2017-01-26] MEDS: GUAIFENESIN 600 MG TABCR PO SCH ×2 (08:38→21:09)
[2017-01-26] MEDS: PrednisoLONE ACET 1% OP SUSP 5 ML BTL OPL SCH ×4 (08:40→21:09)
[2017-01-26] MEDS: KETOROLAC 0.5% OP SOLN 3 ML BTL OPL SCH ×4 (08:40→21:07)
[2017-01-26 09:06] LABS: BUN/CREATININE RATIO 23.3 (10-20); CREATININE 1.3 mg/dl (0.60-1.20)
--- NOTE | 2017-01-26 09:20 | CARDIOLOGY PROGRESS NOTE ---
DATE: 01/26/2017 SUBJECTIVE: Mrs. Philip is resting comfortably in bedside chair without complaints of chest discomfort. Feels that her dyspnea has improved. She is anxious for hospital discharge. OBJECTIVE: VITAL SIGNS: Blood pressure is 170/90 with a regular pulse of 82. Respiratory rate is 18. The patient is afebrile at 36.5 degrees Celsius. Saturation 91% on room air. NECK: Supple with full carotid upstrokes. No obvious bruits. Jugular venous pressure is difficult to assess. CARDIOVASCULAR: Reveals a regular rhythm with normal S1 and S2. Heart sounds are distant. No obvious murmurs. LUNGS: Clear without rales, rhonchi or wheezes. ABDOMEN: Obese without bruits. EXTREMITIES: Reveal intact radial artery pulses bilaterally. There is no peripheral edema. DATA: CBC notes hemoglobin 11.6, hematocrit 37.1, white count 11.2, platelet count 294,000. Electrolytes are pending. IMPRESSION AND PLAN: 1. Shortness of breath -- multifactorial in origin. Pulmonary service feels this may represent chronic aspiration. There does not seem to be a major element of congestive heart failure. She continues on Lasix 40 mg b.i.d. Would reduce her dose should her BUN and creatinine be increasing. 2. Hypervolemia -- seems euvolemic at this time. 3. Orthostatic hypotension -- stable. 4. Hypertension -- difficult to control.
[2017-01-26] MEDS: TIOTROPIUM BROMIDE 5 PUFF/90 MCG INH INH SCH (10:38)
[2017-01-26] MEDS ORDERED: POTASSIUM CHLORIDE 10 MEQ TABCR PO STA ×2 (12:11→21:36)
--- NOTE | 2017-01-26 15:23 | Progress Note ---
Subjective Date of Service: January 26, 2017. Subjective Pt evaluation today including: conversation w/ patient, conversation w/ family , physical exam, chart review, lab review, review of studies, review of inpatient medication list Problem List Medical Problems: (1) Cervical strain Status: Acute (2) Fall Status: Acute (3) Head injury Status: Acute (4) Head injury Status: Acute (5) Hip pain Status: Acute (6) Hypoxia Status: Acute (7) Hypoxia Status: Acute (8) Lower extremity edema Status: Acute (9) Pneumonia Status: Acute (10) Reactive airway disease Status: Acute (11) Sepsis Status: Acute (12) Syncope Status: Acute (13) Traumatic compression fracture of third thoracic vertebra Status: Acute Review of Systems Constitutional: No chills, No fever Respiratory: No cough, No dyspnea on exertion, No shortness of breath, No sputum, No wheezing Cardiac: No chest pain, No orthopnea Abdomen: No constipation, No diarrhea, No nausea, No pain, No vomiting Musculoskeletal: No joint pain, No muscle pain Female : No dysuria, No urinary frequency Objective Vital Signs Date Time Temp Pulse Resp B/P Pulse Ox O2 Delivery O2 Flow Rate FiO2 01/26/17 14:30 90 16 93 Room Air 01/26/17 11:32 93 159/84 01/26/17 08:00 Room Air 01/26/17 07:17 99 115/70 01/26/17 07:13 36.5 108 18 175/98 91 Room Air 01/26/17 07:11 82 16 91 Room Air 01/26/17 01:47 100 20 95 Room Air 01/26/17 00:34 37.1 98 18 163/88 94 Room Air 01/25/17 19:23 87 14 96 Room Air 01/25/17 16:00 Room Air Physical Exam General Appearance: WD/WN, no apparent distress Neck: supple, no adenopathy Respiratory/Chest: chest non-tender, + decreased breath sounds Cardiovascular: no edema, no gallop Abdomen: non tender, soft Neurologic/Psychiatric: alert, normal mood/affect Laboratory Results Last 24 Hours Test 01/25/17 16:32 01/25/17 20:34 01/26/17 07:35 01/26/17 08:10 Bedside Glucose 141 mg/dl 117 mg/dl 110 mg/dl White Blood Count 11.27 K/uL Red Blood Count 3.85 M/uL Hemoglobin 11.6 g/dL Hematocrit 37.1 % Mean Corpuscular Volume 96.4 fL Mean Corpuscular Hemoglobin 30.1 pg Mean Corpuscular Hemoglobin Concent 31.3 g/dl Platelet Count 294 K/uL Mean Platelet Volume 10.2 fL Neutrophils (%) (Auto) 70.0 % Lymphocytes (%) (Auto) 20.4 % Monocytes (%) (Auto) 7.1 % Eosinophils (%) (Auto) 0.4 % Basophils (%) (Auto) 0.2 % Neutrophils # (Auto) 7.89 K/uL Lymphocytes # (Auto) 2.30 K/uL Monocytes # (Auto) 0.80 K/uL Eosinophils # (Auto) 0.05 K/uL Basophils # (Auto) 0.02 K/uL RDW Standard Deviation 67.6 fL RDW Coefficient of Variation 19.2 % Immature Granulocyte % (Auto) 1.9 % Immature Granulocyte # (Auto) 0.21 K/uL Nucleated RBC Absolute Count (auto) 0.04 K/uL Nucleated Red Blood Cells % 0.4 % Sodium Level 142 mmol/L Potassium Level 3.0 mmol/L Chloride Level 101 mmol/L Carbon Dioxide Level 29 mmol/L Anion Gap 12.0 mmol/L Blood Urea Nitrogen 30 mg/dl Creatinine 1.30 mg/dl Est Creatinine Clear Calc Drug Dose 36.2 ml/min Estimated GFR () 44.9 Estimated GFR (Non- 38.7 BUN/Creatinine Ratio 23.3 Random Glucose 114 mg/dl Calcium Level 9.0 mg/dl Test 01/26/17 11:20 Bedside Glucose 139 mg/dl Assessment and Plan Acute on chronic diastolic CHF - Discontinue lasix 40 mg PO daily due to worsening MANJULA, appropriate diuresis - Recent echo 11/2016 with 65-70% EF, no WMA - Cont metoprolol and statin - Recheck CXR 01/18 - Consult cardiology per daughter request, diuresing well on lasix but still volume overloaded, cont lasix 40 mg PO daily Chronic pain -- ?from cough - [place] in addition to lidoderm patch added, better tolerated Aspiration pneumonia/itis POA Awaiting appeal to go to rehab Right lower chest pain, pleuritic with underlying pleural effusion -- worse with cough and deep breath - D/W Dr. Sandoval, obtain CXR 2 views that showed small effusion -low dose NSAIDs for few days only, with monitoring renal function - continue [place] / lidoderm patch - Low dose toradol bid Aspiration pneumonia/itis POA - Known to have aspirations - CT consistent with this - Pulmonary consulted, bronch completed with diffuse mucus plugs and oral secretions noted - Swallow evaluation 01/16 and video swallow 01/17 determined no aspiration - Cont pred taper - Finished 7 day course of antibx Hypothyroid - Cont levothyroxine - TSH WNL severe deconditioning - needs more rehab DVT ppx with lovenox DISPO: Pt agreed to rehab
[2017-01-26] MEDS: CALCIUM CARBONATE 1250MG TAB PO SCH (18:22)
[2017-01-26] MEDS: DICLOFENAC SOD 1% GEL 100 GM TUBE EXT SCH (18:22)
[2017-01-26] MEDS: SIMVASTATIN 20 MG TAB PO SCH (21:07)
[2017-01-26] MEDS: ENOXAPARIN 40 MG/0.4 ML SYR SC SCH (21:07)
[2017-01-26] MEDS: ROPINIROLE HCL 0.25 MG TAB PO SCH (21:10)
[2017-01-26] MEDS: INSULIN GLARGINE SOLOSTAR 100 UNITS/ML 3 ML PEN SC SCH (21:24)
[2017-01-27] VITALS (7 sets, daily range): BP systolic 109–161; BP diastolic 66–88; PULSE 84–96; TEMP 36.4–37; O2SAT 94–95
[2017-01-27] MEDS: ALBUT/IPRATROP 3MG/0.5MG NEB 3 ML VIAL INH SCH (03:00)
[2017-01-27] MEDS: LEVOTHYROXINE 88 MCG TAB PO SCH (05:22)
[2017-01-27] MEDS: IPRATROPIUM BROMIDE/ALBUTEROL respimat INH INH SCH ×4 (07:12→17:30)
[2017-01-27] MEDS: TIOTROPIUM BROMIDE 5 PUFF/90 MCG INH INH SCH (07:23)
[2017-01-27] MEDS: GABAPENTIN 300 MG CAP PO SCH ×2 (07:23→21:22)
[2017-01-27] MEDS: CITALOPRAM 20 MG TAB PO SCH (07:24)
[2017-01-27] MEDS: CYANOCOBALAMIN 500 MCG TAB (VIT B-12) PO SCH (07:25)
[2017-01-27] MEDS: POTASSIUM CHLORIDE 20 MEQ TABCR PO SCH (07:26)
[2017-01-27] MEDS: GUAIFENESIN 600 MG TABCR PO SCH ×2 (07:26→21:21)
[2017-01-27] MEDS: FERROUS SULFATE 325 MG TAB PO SCH ×2 (07:28→17:29)
[2017-01-27] MEDS: PANTOprazole SOD 40 MG TAB PO SCH (07:29)
[2017-01-27] MEDS: CHOLECALCIFEROL 1000 INTER.UNIT TAB PO SCH (07:30)
[2017-01-27] MEDS: MIDODRINE 2.5 MG TAB PO SCH ×3 (07:31→21:22)
[2017-01-27] MEDS: SPIRONOLACTONE 25 MG TAB PO SCH ×2 (07:32→21:21)
[2017-01-27] MEDS: KETOROLAC 0.5% OP SOLN 3 ML BTL OPL SCH ×4 (07:32→21:18)
[2017-01-27] MEDS: PrednisoLONE ACET 1% OP SUSP 5 ML BTL OPL SCH ×4 (07:33→21:18)
[2017-01-27] MEDS: LIDODERM (LIDOCAINE) PATCH 5% TD SCH (07:34)
[2017-01-27 08:09] LABS: BASO % 0.2 %; BASO ABS # 0.02 K/uL (0-0.2); COMPLETE YES; HEMATOCRIT 36.1 % (37-47); LYMPH ABS # 1.46 K/uL (1.2-3.4); MEAN CELL VOLUME 98.6 fL (80-100); MEAN CORPUSCULAR HEMOGLOBIN 30.3 pg (25-34); MEAN CORPUSCULAR HGB CONC 30.7 g/dl (32-36); MONO % 9.1 %; NEUT % 70.7 %; PLATELET COUNT 288 K/uL (130-400); RED BLOOD COUNT 3.66 M/uL (4.2-5.4); WHITE BLOOD COUNT 8.61 K/uL (4.8-10.8)
[2017-01-27] MEDS: INSULIN ASPART 100 UNITS/ML 3 ML PEN SC SCH ×4 (09:03→21:00)
[2017-01-27 09:12] LABS: BUN/CREATININE RATIO 25.4 (10-20); CREATININE 1.1 mg/dl (0.60-1.20); POTASSIUM 4.2 mmol/L (3.5-5.1)
[2017-01-27 09:41] LABS: CALCIUM 9.3 mg/dl (8.5-10.1)
--- NOTE | 2017-01-27 11:00 | Cardiology Follow-Up ---
Subjective Date of Service: January 27, 2017. Pt evaluation today including: conversation w/ patient, physical exam, chart review, lab review, review of studies, review of inpatient medication list, conversation w/ attending History of Present Illness The patient is out in her chair this morning. She reports that her shortness of breath is unchanged. She continues to feel short of breath constantly, and her breathing is worsened at random. It is not necessarily worsened with her position or exertion. She does not have any lower extremity edema, but she continues to not abdominal distension. She notes soreness in her chest secondary to coughing. She denies any other chest pain. She notes lightheadedness upon initially standing. She denies syncope or presyncope. Social History Smoking Status: Never Smoker History of Alcohol Use: No Review of Systems Respiratory: + sputum Objective Vital Signs Past 12 Hours Date Time Temp Pulse Resp B/P Pulse Ox O2 Delivery O2 Flow Rate FiO2 01/27/17 08:00 94 Room Air 01/27/17 07:40 36.5 84 16 129/74 94 Room Air 01/27/17 00:07 36.4 88 18 116/69 94 Room Air 01/27/17 00:00 94 Room Air Last Recorded Weight-Kilograms: 90.900 Intake & Output 8-Hour Column 01/26/17 01/26/17 01/27/17 15:59 23:59 07:59 Intake Total 400 ml 0 ml 180 ml Output Total 0 ml 0 ml Balance 400 ml 0 ml 180 ml 24-Hour Column 01/27/17 07:59 Intake Total 580 ml Output Total 0 ml Balance 580 ml Physical Exam Constitutional: Alert, oriented, in no acute distress HEENT: Head is atraumatic and normocephalic. EOMs intact. Sclera anicteric. Face is symmetric. No perioral cyanosis. Mucous membranes moist. Neck: Supple, no appreciable JVD but difficult exam due to thick neck Pulmonary: Normal respiratory effort, clear to auscultation throughout Cardiac: Regular rate and rhythm, normal S1 and S2, no gallops, no rubs, no murmurs Extremities: No edema. No clubbing or cyanosis. Pulses intact. Abdomen: Normal bowel sounds, soft, non-tender, no abdominal mass palpated Skin: Normal skin color, turgor, and pigmentation, no rash, no skin lesions Neurological: Oriented to person, place, and time Data Laboratory Results: Last 24 Hours Test 01/26/17 11:20 01/26/17 16:23 01/26/17 20:06 01/27/17 07:37 Bedside Glucose 139 mg/dl 190 mg/dl 216 mg/dl White Blood Count 8.61 K/uL Red Blood Count 3.66 M/uL Hemoglobin 11.1 g/dL Hematocrit 36.1 % Mean Corpuscular Volume 98.6 fL Mean Corpuscular Hemoglobin 30.3 pg Mean Corpuscular Hemoglobin Concent 30.7 g/dl Platelet Count 288 K/uL Mean Platelet Volume 10.0 fL Neutrophils (%) (Auto) 70.7 % Lymphocytes (%) (Auto) 17.0 % Monocytes (%) (Auto) 9.1 % Eosinophils (%) (Auto) 1.0 % Basophils (%) (Auto) 0.2 % Neutrophils # (Auto) 6.09 K/uL Lymphocytes # (Auto) 1.46 K/uL Monocytes # (Auto) 0.78 K/uL Eosinophils # (Auto) 0.09 K/uL Basophils # (Auto) 0.02 K/uL RDW Standard Deviation 70.2 fL RDW Coefficient of Variation 19.4 % Immature Granulocyte % (Auto) 2.0 % Immature Granulocyte # (Auto) 0.17 K/uL Nucleated RBC Absolute Count (auto) 0.04 K/uL Nucleated Red Blood Cells % 0.5 % Sodium Level 144 mmol/L Potassium Level 4.2 mmol/L Chloride Level 106 mmol/L Carbon Dioxide Level 31 mmol/L Anion Gap 7.0 mmol/L Blood Urea Nitrogen 28 mg/dl Creatinine 1.10 mg/dl Est Creatinine Clear Calc Drug Dose 42.8 ml/min Estimated GFR () 54.9 Estimated GFR (Non- 47.4 BUN/Creatinine Ratio 25.4 Random Glucose 82 mg/dl Osmolality 300 mOsm/kg Calcium Level 9.3 mg/dl Test 01/27/17 07:44 Bedside Glucose 89 mg/dl Assessment and Plan ASSESSMENT AND PLAN: 1. Shortness of breath: Likely multifactorial. Pulmonology suspects chronic aspiration. There does not seem to be a major element of congestive heart failure. Her brain natriuretic peptide has consistently been below 300, and her symptoms are not improving despite adequate diuresis. 2. Hypervolemia: Her BNP was less than 300, which makes heart failure very unlikely. Her diuretics are on hold due to azotemia. Recommend discharging on a daily diuretic given her history of lower extremity edema. Would use Lasix 40 mg daily, which was what she was on prior to admission. 3. Orthostatic hypotension: Her symptoms appear stable. Continue Midodrine. 4. Hypertension: She has been intermittently hypertensive but with her orthostatic hypotension, will have to accept some degree of hypertension. Patient discussed with Dr. Kelly, and the plan was made in collaboration with him.
--- NOTE | 2017-01-27 14:05 | Progress Note ---
Subjective Date of Service: January 27, 2017. Subjective Pt evaluation today including: conversation w/ patient, physical exam, chart review, lab review, review of studies, review of inpatient medication list Resting in bed comfortably Pain controlled No SOB, CP No acute events overnight Problem List Medical Problems: (1) Cervical strain Status: Acute (2) Fall Status: Acute (3) Head injury Status: Acute (4) Head injury Status: Acute (5) Hip pain Status: Acute (6) Hypoxia Status: Acute (7) Hypoxia Status: Acute (8) Lower extremity edema Status: Acute (9) Pneumonia Status: Acute (10) Reactive airway disease Status: Acute (11) Sepsis Status: Acute (12) Syncope Status: Acute (13) Traumatic compression fracture of third thoracic vertebra Status: Acute Review of Systems Constitutional: No chills, No fever Respiratory: No cough, No shortness of breath, No sputum, No wheezing Cardiac: No chest pain, No orthopnea Abdomen: No diarrhea, No nausea, No pain, No vomiting Musculoskeletal: No joint pain, No muscle pain Female : No dysuria, No urinary frequency Objective Vital Signs Date Time Temp Pulse Resp B/P Pulse Ox O2 Delivery O2 Flow Rate FiO2 01/27/17 10:20 96 95 01/27/17 08:00 94 Room Air 01/27/17 07:40 36.5 84 16 129/74 94 Room Air 01/27/17 00:07 36.4 88 18 116/69 94 Room Air 01/27/17 00:00 94 Room Air 01/26/17 19:20 88 18 94 Room Air 01/26/17 17:53 Room Air 01/26/17 15:23 37.1 97 18 133/77 91 Room Air 01/26/17 14:30 90 16 93 Room Air Physical Exam General Appearance: WD/WN, no apparent distress Neck: supple, no adenopathy Respiratory/Chest: chest non-tender, + decreased breath sounds Cardiovascular: no edema, no gallop Abdomen: non tender, soft Neurologic/Psychiatric: alert, oriented x 3 Laboratory Results Last 24 Hours Test 01/26/17 16:23 01/26/17 20:06 01/27/17 07:37 01/27/17 07:44 Bedside Glucose 190 mg/dl 216 mg/dl 89 mg/dl White Blood Count 8.61 K/uL Red Blood Count 3.66 M/uL Hemoglobin 11.1 g/dL Hematocrit 36.1 % Mean Corpuscular Volume 98.6 fL Mean Corpuscular Hemoglobin 30.3 pg Mean Corpuscular Hemoglobin Concent 30.7 g/dl Platelet Count 288 K/uL Mean Platelet Volume 10.0 fL Neutrophils (%) (Auto) 70.7 % Lymphocytes (%) (Auto) 17.0 % Monocytes (%) (Auto) 9.1 % Eosinophils (%) (Auto) 1.0 % Basophils (%) (Auto) 0.2 % Neutrophils # (Auto) 6.09 K/uL Lymphocytes # (Auto) 1.46 K/uL Monocytes # (Auto) 0.78 K/uL Eosinophils # (Auto) 0.09 K/uL Basophils # (Auto) 0.02 K/uL RDW Standard Deviation 70.2 fL RDW Coefficient of Variation 19.4 % Immature Granulocyte % (Auto) 2.0 % Immature Granulocyte # (Auto) 0.17 K/uL Nucleated RBC Absolute Count (auto) 0.04 K/uL Nucleated Red Blood Cells % 0.5 % Sodium Level 144 mmol/L Potassium Level 4.2 mmol/L Chloride Level 106 mmol/L Carbon Dioxide Level 31 mmol/L Anion Gap 7.0 mmol/L Blood Urea Nitrogen 28 mg/dl Creatinine 1.10 mg/dl Est Creatinine Clear Calc Drug Dose 42.8 ml/min Estimated GFR () 54.9 Estimated GFR (Non- 47.4 BUN/Creatinine Ratio 25.4 Random Glucose 82 mg/dl Osmolality 300 mOsm/kg Calcium Level 9.3 mg/dl Test 01/27/17 11:44 Bedside Glucose 187 mg/dl Assessment and Plan Acute on chronic diastolic CHF - Cont lasix 40 mg PO daily, appropriate diuresis - Recent echo 11/2016 with 65-70% EF, no WMA - Cont metoprolol and statin - Recheck CXR 01/18 - Consult cardiology per daughter request, diuresing well on lasix but still volume overloaded, cont lasix 40 mg PO daily Chronic pain -- ?from cough - Royal in addition to lidoderm patch added, better tolerated Aspiration pneumonia/itis POA Awaiting appeal to go to rehab Right lower chest pain, pleuritic with underlying pleural effusion -- worse with cough and deep breath - D/W Dr. Sandoval, obtain CXR 2 views that showed small effusion -low dose NSAIDs for few days only, with monitoring renal function - continue Royal / lidoderm patch - Low dose toradol bid Aspiration pneumonia/itis POA - Known to have aspirations - CT consistent with this - Pulmonary consulted, bronch completed with diffuse mucus plugs and oral secretions noted - Swallow evaluation 01/16 and video swallow 01/17 determined no aspiration - Cont pred taper - Finished 7 day course of antibx Hypothyroid - Cont levothyroxine - TSH WNL severe deconditioning - needs more rehab DVT ppx with lovenox DISPO: Pt agreed to rehab
[2017-01-27] MEDS: HYDROCODONE/ACETAMINOPHEN 7.5/325MG TAB PO PRN ×2 (16:59→23:59)
[2017-01-27] MEDS: CALCIUM CARBONATE 1250MG TAB PO SCH (17:29)
[2017-01-27] MEDS: INSULIN GLARGINE SOLOSTAR 100 UNITS/ML 3 ML PEN SC SCH (21:13)
[2017-01-27] MEDS: DICLOFENAC SOD 1% GEL 100 GM TUBE EXT SCH (21:18)
[2017-01-27] MEDS: SIMVASTATIN 20 MG TAB PO SCH (21:22)
[2017-01-27] MEDS: ROPINIROLE HCL 0.25 MG TAB PO SCH (21:22)
[2017-01-27] MEDS: ENOXAPARIN 40 MG/0.4 ML SYR SC SCH (21:23)
[2017-01-28] MEDS: IPRATROPIUM BROMIDE/ALBUTEROL respimat INH INH SCH ×2 (05:44)
[2017-01-28] MEDS: LEVOTHYROXINE 88 MCG TAB PO SCH (05:44)
[2017-01-28 07:21] VITALS: BP 148/77; PULSE 82; TEMP 36.4; O2SAT 94
[2017-01-28 07:25] LABS: BASO % 0.3 %; BASO ABS # 0.02 K/uL (0-0.2); COMPLETE YES; EOS % 1.3 %; HEMATOCRIT 32.8 % (37-47); IG% 2.4 %; LYMPH % 25.5 %; LYMPH ABS # 1.79 K/uL (1.2-3.4); MEAN CORPUSCULAR HEMOGLOBIN 29.9 pg (25-34); MEAN CORPUSCULAR HGB CONC 30.8 g/dl (32-36); MEAN PLATELET VOLUME 9.7 fL (7.4-10.4); MONO % 8.6 %; NEUT % 61.9 %; PLATELET COUNT 255 K/uL (130-400); RED BLOOD COUNT 3.38 M/uL (4.2-5.4); WHITE BLOOD COUNT 7.01 K/uL (4.8-10.8)
[2017-01-28 07:52] LABS: BUN/CREATININE RATIO 20.6 (10-20); CALCIUM 8.5 mg/dl (8.5-10.1); CREATININE 1.2 mg/dl (0.60-1.20); POTASSIUM 3.6 mmol/L (3.5-5.1)
[2017-01-28] MEDS: PANTOprazole SOD 40 MG TAB PO SCH (08:14)
[2017-01-28] MEDS: LIDODERM (LIDOCAINE) PATCH 5% TD SCH (08:15)
[2017-01-28] MEDS: CITALOPRAM 20 MG TAB PO SCH (08:15)
[2017-01-28] MEDS: CYANOCOBALAMIN 500 MCG TAB (VIT B-12) PO SCH (08:15)
[2017-01-28] MEDS: GABAPENTIN 300 MG CAP PO SCH (08:15)
[2017-01-28] MEDS: CHOLECALCIFEROL 1000 INTER.UNIT TAB PO SCH (08:15)
[2017-01-28] MEDS: TIOTROPIUM BROMIDE 5 PUFF/90 MCG INH INH SCH (08:16)
[2017-01-28] MEDS: KETOROLAC 0.5% OP SOLN 3 ML BTL OPL SCH (08:16)
[2017-01-28] MEDS: GUAIFENESIN 600 MG TABCR PO SCH (08:16)
[2017-01-28] MEDS: SPIRONOLACTONE 25 MG TAB PO SCH (08:16)
[2017-01-28] MEDS: POTASSIUM CHLORIDE 20 MEQ TABCR PO SCH (08:16)
[2017-01-28] MEDS: FERROUS SULFATE 325 MG TAB PO SCH (08:16)
[2017-01-28] MEDS: PrednisoLONE ACET 1% OP SUSP 5 ML BTL OPL SCH (08:17)
[2017-01-28] MEDS: INSULIN ASPART 100 UNITS/ML 3 ML PEN SC SCH (08:24)
[2017-01-28] MEDS: MIDODRINE 2.5 MG TAB PO SCH (08:30)
[2017-01-28] MEDS ORDERED: LSX40 PO (08:52)
[2017-01-28] MEDS ORDERED: PRD10 PO (08:52)
[2017-01-28] MEDS ORDERED: SPR25 PO (08:52)
[2017-01-28] MEDS ORDERED: FRRS300 PO (08:52)
[2017-01-28] MEDS ORDERED: FUROSEMIDE 40 MG TAB PO SCH (09:00)
[2017-01-28 09:21] VITALS: BP 148/77; PULSE 82; TEMP 36.4; O2SAT 94
--- NOTE | 2017-01-28 14:42 | Discharge Summary ---
Discharge Summary Date of Service January 28, 2017. Discharge Summary Admission Date: Jan 14, 2017 at 17:27 Discharge Date: January 24, 2017 Discharge Disposition: Rehab Principal Diagnosis: ACute CHF exab Immunizations: Have You Had Influenza Vaccine: N/A Influenza Vaccine Date: Jun 18, 2012 History of Tetanus Vaccine?: Yes Tetanus Immunization Date: Mar 18, 2004 History of Pneumococcal: Yes Pneumococcal Date: May 31, 2010 History of Hepatitis B Vaccine: No Consultations: Cardiology Pulmonary Medication Reconciliation New Medications: Naproxen (Naproxen) 375 Mg Tab 1 TAB PO BID for 2 Days, #4 TAB stop after 2 days Prednisone (Prednisone) 10 Mg Tab 10 MG PO UD, #30 TABS Please take 4 tablets daily for 3 days then 3 tablets daily for 3 days then 2 tablets daily for 3 days then 1 tablet daily for 3 days then stop Ferrous Sulfate (Ferrous Sulfate) 325 Mg Tab 325 MG PO BIDM for 30 Days, #60 TAB Furosemide (Furosemide) 40 Mg Tab 40 MG PO DAILY for 30 Days, #30 TAB Furosemide (Furosemide) 40 Mg Tab 40 MG PO QAM for 30 Days, #30 TAB Hydrocodone/Acetaminophen 7.5MG/325MG ([place] 7.5MG/325MG) Tab 1 TAB PO Q6H PRN for Pain for 30 Days, #20 TAB PRN PAIN Spironolactone (Spironolactone) 25 Mg Tab 25 MG PO BID for 30 Days, #60 TAB [Remove Lidoderm Patch] () 1 EA EA 1 EA N/A DAILY@2100, #15 PATCH 3 Refills Continued Medications: Acetaminophen (Tylenol Arthritis Ext Rel) 650 Mg Cplt 650 MG PO Q4H PRN for Pain, CAP Arformoterol Tartrate (Brovana) 15 Mcg/2 Ml Neb 15 MCG INH BID PRN for SOB/Wheezing, INHALER Gvyzjxgtyu-Hrppjdztwalto-Crkhx (Fioricet) 1 Cap Cap 1 CAP PO Q4H PRN for Headache Calcium Carbonate (Calcium Carbonate) 1,250 Mg Tab 1 TAB PO HS Cholecalciferol (Vitamin D3) 1,000 Inter.unit Tab 1000 UNITS PO QAM Citalopram Hydrobromide (Celexa) 20 Mg Tab 30 MG PO QAM, TAB Cyanocobalamin (Vitamin B-12) 500 Mcg Tab 1000 MCG PO QAM, TAB Gabapentin (Neurontin) 300 Mg Cap 300 MG PO BID, CAP Guaifenesin (Mucinex Maximum Strength) 1,200 Mg Tab 1 TAB PO DAILY PRN for CONGESTION for 15 Days, #15 TAB Hydrocodone/Homatropine (Hydromet) 1 Ml Syrp 1 DOSE PO DIRECTED PRN for Cough for 9 Days, ML Ipratropium-Albuterol (Duoneb) 3 Ml Nebu 1 TREATMENT INH Q4H PRN for SOB/Wheezing, INHA Ipratropium-Albuterol (Combivent Respimat) 1 Aer Aer 1 PUFFS INH QID, INH Ketorolac Tromethamine (Ophth) (Ketorolac Tromethamine) 0.5 % Renetta 1 DROP OPL QID, #15 Levothyroxine Sodium (Levothyroxine Sodium) 88 Mcg Tab 88 MCG PO DAILY for 90 Days, #90 TAB 3 Refills Linaclotide (Linzess) 290 Mcg Cap 1 CAP PO QAM PRN for GI Upset Melatonin (Kp Melatonin) 3 Mg Tab 1 TAB PO HS Midodrine Hcl (Midodrine Hcl) 2.5 Mg Tab 1 TAB PO TID Omeprazole (Prilosec) 40 Mg Cap 40 MG PO QAM, CAP Polyethylene Glycol-Propylene (Systane) 1 Renetta Renetta 1 DROPS OPR QID, #30 ML 5 Refills Potassium Chloride (K-Tab) 20 Meq Tab 20 MEQ PO QAM Prednisolone Acetate (Ophth) (Pred Forte 1% Oph) 1 % Nicole 1 DROPS OPL QID, #5 ML Riboflavin (Riboflavin) 400 Mg Tab 1 TAB PO QAM Ropinirole (Requip) 0.25 Mg Tab 0.25-0.5 MG PO HS PRN for RESTLESS LEGS, TAB Senna/Docusate Sod (Senokot S) 1 Tab Tab 1 TAB PO QAM PRN for Constipation, TAB Simvastatin (Zocor) 20 Mg Tab 20 MG PO HS, TAB Tiotropium [place] Monohydrate (Spiriva Respimat) 2.5 Mcg/Act Spr 2 PUFFS INH DAILY Discontinued Medications: Furosemide (Lasix) 20 Mg Tab 20 MG PO QAM, TAB Linezolid (Zyvox) 600 Mg Tab 600 MG PO BID, TAB Discharge Exam Review of Systems: Constitutional: No chills, No fever Respiratory: + cough, No dyspnea on exertion, No shortness of breath, No sputum Cardiovascular: No chest pain, No orthopnea Abdomen: No diarrhea, No nausea, No pain, No vomiting Musculoskeletal: No joint pain, No muscle pain Genitourinary - Female: No dysuria, No urinary frequency, No urinary urgency Neurologic: No paralysis, No weakness Physical Exam: General Appearance: WD/WN, no apparent distress Neck: supple, no adenopathy Respiratory/Chest: lungs clear, + decreased breath sounds Cardiovascular: no edema, no gallop Abdomen / GI: non tender, soft Neurologic/Psychiatric: alert, oriented x 3 Hospital Course Acute on chronic diastolic CHF - Cont lasix 40 mg PO daily, appropriate diuresis - Recent echo 11/2016 with 65-70% EF, no WMA - Cont metoprolol and statin - Recheck CXR 01/18 - Consult cardiology per daughter request, diuresing well on lasix but still volume overloaded, cont lasix 40 mg PO daily Chronic pain -- ?from cough - [place] in addition to lidoderm patch added, better tolerated Aspiration pneumonia/itis POA Awaiting appeal to go to rehab Right lower chest pain, pleuritic with underlying pleural effusion -- worse with cough and deep breath - D/W Dr. Sandoval, obtain CXR 2 views that showed small effusion -low dose NSAIDs for few days only, with monitoring renal function - continue [place] / lidoderm patch - Low dose toradol bid Aspiration pneumonia/itis POA - Known to have aspirations - CT consistent with this - Pulmonary consulted, bronch completed with diffuse mucus plugs and oral secretions noted - Swallow evaluation 01/16 and video swallow 01/17 determined no aspiration - Cont pred taper - Finished 7 day course of antibx Hypothyroid - Cont levothyroxine - TSH WNL severe deconditioning - needs more rehab DVT ppx with lovenox DISPO: Pt agreed to rehab Total Time Spent: Greater than 30 minutes This includes examination of the patient, discharge planning, medication reconciliation, and communication with other providers. Discharge Instructions Please refer to the electronic Patient Visit Report (Discharge Instructions) for additional information.
[2017-02-09] MEDS ORDERED: PRED20TA2 PO (11:35)
[2017-02-09] MEDS ORDERED: TIOT1AER (11:35)
[2017-04-19] MEDS ORDERED: FERR324T PO (11:29)
[2017-04-21] MEDS ORDERED: PRD10 PO (11:07)
[2017-04-21] MEDS ORDERED: CLX20 PO (11:07)
[2017-05-01] MEDS ORDERED: LINA1CAP PO (17:39)
[2017-06-23] MEDS ORDERED: CEPH500C2 PO (08:59)
[2017-07-07] MEDS ORDERED: SIMV20TA2 PO (00:19)
[2017-07-07] MEDS ORDERED: CYAN500T PO (00:27)
[2017-07-07] MEDS ORDERED: CLX20 PO (08:59)
[2017-07-07] MEDS ORDERED: RIBO1TAB4 PO (10:15)
[2017-07-07] MEDS ORDERED: TRAM-10 PO (11:35)
[2017-07-07] MEDS ORDERED: ROPI0.25 PO (12:14)
[2017-07-07] MEDS ORDERED: LEVO88TA3 PO (13:26)
[2017-07-07] MEDS ORDERED: MELA1TAB48 PO (15:08)
[2017-07-07] MEDS ORDERED: TORS20TA2 PO (15:31)
[2017-07-07] MEDS ORDERED: SPRIN/30 INH (15:31)
[2017-07-07] MEDS ORDERED: LORA-741 PO (15:31)
[2017-07-07] MEDS ORDERED: NF84 PO (15:55)
[2017-07-07] MEDS ORDERED: MIDO2.5T PO (15:55)
[2017-07-07] MEDS ORDERED: GABA-113 PO (15:58)
[2017-07-07] MEDS ORDERED: VTMD1000 PO (15:58)
[2017-07-07] MEDS ORDERED: IPRASOL4 INH (17:28)
[2017-07-07] MEDS ORDERED: IPRA1AER2 INH ×2 (17:39→21:19)
[2017-07-07] MEDS ORDERED: PRED10TA PO (21:19)
[2017-07-07] MEDS ORDERED: POTA1CAP2 PO (21:19)
[2017-07-07] MEDS ORDERED: FERR1TAB23 PO (21:19)
[2017-07-07] MEDS ORDERED: NVLGI/PEN SQ (21:19)
[2017-07-07] MEDS ORDERED: DEXL60CA4 PO (21:19)
[2017-07-07] MEDS ORDERED: DICL1GEL12 TOP (21:19)
[2017-07-07] MEDS ORDERED: MIRA1TAB3 PO (21:19)
[2017-07-07] MEDS ORDERED: INSU1INJ23 SQ (21:19)
[2017-07-07] MEDS ORDERED: CALC1CAP36 PO (21:19)
[2017-07-07] MEDS ORDERED: NYST100010 TOP (21:19)
[2017-07-07] MEDS ORDERED: TIOT1AER2 INH (21:46)
[2017-07-07] MEDS ORDERED: LEVO100T7 PO (21:51)
[2017-07-27] MEDS ORDERED: LPR25 PO (10:22)
[2017-07-27] MEDS ORDERED: LVQ750 PO (10:22)
[2017-07-27] MEDS ORDERED: FRCT/ PO (10:22)
[2017-07-27] MEDS ORDERED: VTMD1000 PO (10:22)
[2017-07-27] MEDS ORDERED: MIDO2.5T PO (10:22)
[2017-07-27] MEDS ORDERED: FERR1TAB23 PO (10:22)
[2017-07-27] MEDS ORDERED: PRED10TA PO (10:22)
[2017-07-27] MEDS ORDERED: CLX20 PO (10:22)
[2017-07-27] MEDS ORDERED: ERGO500011 PO (10:22)
[2017-07-27] MEDS ORDERED: POTA1CAP2 PO (10:22)
[2017-07-27] MEDS ORDERED: INSDGIPEN SC (10:22)
[2017-07-27] MEDS ORDERED: INSU32MI13 SQ (10:22)
[2017-07-27] MEDS ORDERED: LEVO100T7 PO (10:22)
[2017-07-27] MEDS ORDERED: NRV5 PO (10:22)
== END 2017-01-28 11:15 | DRG 166 ==
LOC: ENRESERVTM → ENRESERVDT → EDBD 14:22 → C.EDA 14:23 → UNDOADMIN 17:27 → C.2T 17:27 → C.MS2W 01-17 12:20
PROVIDERS: ADMIT Internal Medicine; ATTEND Hospitalist
PROC: 0B9D8ZX Drainage of Right Middle Lung Lobe, Via Natural or Artificial Opening Endoscopic, Diagnostic (ICD-10-PCS; principal; 2017-01-15)
DX: J69.0 Pneumonitis due to inhalation of food and vomit (principal); I50.33 Acute on chronic diastolic (congestive) heart failure; J96.01 Acute respiratory failure with hypoxia; I13.0 Hypertensive heart and chronic kidney disease with heart failure and stage 1 through stage 4 chronic kidney disease, or unspecified chronic kidney disease; J45.909 Unspecified asthma, uncomplicated; J98.6 Disorders of diaphragm; D64.9 Anemia, unspecified; G89.29 Other chronic pain; M79.7 Fibromyalgia; K21.9 Gastro-esophageal reflux disease without esophagitis; N18.3 Chronic kidney disease, stage 3 (moderate); F41.9 Anxiety disorder, unspecified; I95.1 Orthostatic hypotension; E03.9 Hypothyroidism, unspecified; E78.5 Hyperlipidemia, unspecified; Z51.81 Encounter for therapeutic drug level monitoring; Z79.899 Other long term (current) drug therapy; Z79.52 Long term (current) use of systemic steroids; Z87.01 Personal history of pneumonia (recurrent); Z86.14 Personal history of Methicillin resistant Staphylococcus aureus infection; Z85.850 Personal history of malignant neoplasm of thyroid; Z82.49 Family history of ischemic heart disease and other diseases of the circulatory system; Z83.3 Family history of diabetes mellitus; Z84.1 Family history of disorders of kidney and ureter

== ENCOUNTER → 2017-02-06 | Outpatient (CLI) | payer OTHER ==
[~2017-02-06] MED LIST changes: -BENZ100C7 PO; +BUTA1CAP17 PO; +CALC1CAP36 PO; +CEPH500C2 PO; -CHOL100040 PO; +CITA20TA9 PO; +CLX20 PO; -CLX40 PO; +CYAN500T PO; +DEXL60CA4 PO; +DICL1GEL12 TOP; -DICL1GEL28 TOP; +DICL1GEL34 TD; +ERGO500011 PO; +FERR1TAB23 PO; +FERR324T PO; +FRRS300 PO; +GABA-113 PO; -GFNSR600 PO; +GUAI1TAB69 PO; +HYDR-3983 PO; +HYDR0.75 PO; +INSDGIPEN SC; +INSU1INJ23 SQ; +INSU32MI13 SQ; +IPRASOL4 INH; +KFL/250 PO; +LEVO100T7 PO; +LEVO88TA3 PO; -LIDO5DIS10 TOP; +LINA1CAP PO; +LORA-741 PO; +LPR25 PO; -LSX20 PO; +LSX40 PO; +LVQ750 PO; +MCRK/10 PO; +MELA1TAB48 PO; +MIDO2.5T PO; +MIRA1TAB3 PO; +NAPR-1221 PO; +NF84 PO; +NRV5 PO; +NUTR-31; +NVLGI/PEN SQ; +NYST100010 TOP; -OMEP40CA PO; +OMEP40CA41 PO; +OYST1TAB; +POTA1TAB97 PO; +PRD10 PO; +PRED20TA PO; +PRED20TA2 PO; +PSEU60TA80 PO; +RIBO1TAB4 PO; +ROPI0.25 PO; +Remove Lidoderm Patch; +SENN-65 PO; -SENN8.6T7 PO; +SIMV20TA2 PO; +SPR25 PO; +SPRIN/30 INH; +TIOT1AER; +TIOT1AER2 INH; +TORS20TA2 PO; -TPRSR25 PO; +TRAM-10 PO; -ULT50 PO; +VTMD1000 PO
[2017-02-06 11:05] LABS: HEMATOCRIT 39.3 % (37-47); MEAN CELL VOLUME 97.3 fL (80-100); MEAN CORPUSCULAR HEMOGLOBIN 29.2 pg (25-34); MEAN PLATELET VOLUME 10.3 fL (7.4-10.4); PLATELET COUNT 232 K/uL (130-400); RED BLOOD COUNT 4.04 M/uL (4.2-5.4); WHITE BLOOD COUNT 11.71 K/uL (4.8-10.8)
[2017-02-06 11:13] LABS: BLOOD UREA NITROGEN 30 mg/dl (7-18); BUN/CREATININE RATIO 30.4 (10-20); CALCIUM 8.8 mg/dl (8.5-10.1); CARBON DIOXIDE 32 mmol/L (21-32); CHLORIDE 103 mmol/L (98-107); CREATININE 0.99 mg/dl (0.60-1.20); GLUCOSE 108 mg/dl (70-99); POTASSIUM 3.9 mmol/L (3.5-5.1); SODIUM 141 mmol/L (136-145)
== END ==
LOC: C.LABVPSUA 10:05
PROVIDERS: ATTEND Internal Medicine Critical Care Medicine
DX: I50.9 Heart failure, unspecified (principal); J93.9 Pneumothorax, unspecified

== ENCOUNTER → 2017-02-10 | Outpatient (CLI) | payer OTHER ==
[~2017-02-10] MED LIST changes: -HYDR-3983 PO; -NAPR-1221 PO; -TIOT1SPR INH
[2017-02-10 15:02] LABS: BLOOD UREA NITROGEN 34 mg/dl (7-18); BUN/CREATININE RATIO 28.6 (10-20); CALCIUM 8.3 mg/dl (8.5-10.1); CARBON DIOXIDE 28 mmol/L (21-32); CHLORIDE 100 mmol/L (98-107); GLUCOSE 150 mg/dl (70-99); POTASSIUM 4.2 mmol/L (3.5-5.1); SODIUM 140 mmol/L (136-145)
== END | disposition home or self-care (01) ==
LOC: C.LABVPSUA 13:52
PROVIDERS: ATTEND Internal Medicine Critical Care Medicine
DX: I50.9 Heart failure, unspecified (principal)

== ENCOUNTER → 2017-02-17 | Outpatient (CLI) | payer OTHER ==
[2017-02-17 14:07] LABS: CALCIUM 8.2 mg/dl (8.5-10.1)
[2017-02-17 14:12] LABS: BLOOD UREA NITROGEN 28 mg/dl (7-18); BUN/CREATININE RATIO 27.9 (10-20); CARBON DIOXIDE 28 mmol/L (21-32); CHLORIDE 102 mmol/L (98-107); GLUCOSE 88 mg/dl (70-99); POTASSIUM 4.2 mmol/L (3.5-5.1); SODIUM 140 mmol/L (136-145)
== END | disposition home or self-care (01) ==
LOC: C.LABSPEC 13:23
PROVIDERS: ATTEND Physician Assistant
DX: R60.9 Edema, unspecified (principal)

== ENCOUNTER → 2017-03-02 | Outpatient (CLI) | payer OTHER ==
[~2017-03-02] MED LIST changes: -CALC1CAP36 PO; -DEXL60CA4 PO; -DICL1GEL12 TOP; -ERGO500011 PO; -FERR1TAB23 PO; -FRCT/ PO; -INSDGIPEN SC; -INSU1INJ23 SQ; -INSU32MI13 SQ; -LEVO100T7 PO; +LINA1CAP; -LINA1CAP PO; -LPR25 PO; -LVQ750 PO; -MIRA1TAB3 PO; -NRV5 PO; -NVLGI/PEN SQ; -NYST100010 TOP; -POTA1CAP2 PO; -PRED10TA PO; -TIOT1AER2 INH
[2017-03-02 16:04] LABS: HEMATOCRIT 38.5 % (37-47); MEAN CORPUSCULAR HGB CONC 31.7 g/dl (32-36); MEAN PLATELET VOLUME 10.4 fL (7.4-10.4); PLATELET COUNT 180 K/uL (130-400); RED BLOOD COUNT 3.93 M/uL (4.2-5.4)
[2017-03-02 16:53] LABS: ALKALINE PHOSPHATASE 66 U/L (45-117); ALT/SGPT 43 U/L (12-78); AST/SGOT 23 U/L (15-37); BLOOD UREA NITROGEN 22 mg/dl (7-18); BUN/CREATININE RATIO 22.3 (10-20); CALCIUM 7.9 mg/dl (8.5-10.1); CARBON DIOXIDE 28 mmol/L (21-32); CHLORIDE 101 mmol/L (98-107); GLUCOSE 191 mg/dl (70-99); POTASSIUM 4.8 mmol/L (3.5-5.1); SODIUM 139 mmol/L (136-145)
--- NOTE | 2017-03-31 09:44 | CODING QUERY NO DIAGNOSIS ---
TREATMENT RENDERED WITHOUT A DIAGNOSIS To promote full compliance with coding requirements relating to patient care, physician participation is requested in all cases of sap developer uncertainty. Please assist us with providing a diagnosis/symptom for the test(s) below: A diagnosis/symptom was not documented on your Order. A valid diagnosis/symptom is required to bill all insurances. Please remember that we are unable to code a diagnosis of rule out, probable, possible, questionable, or suspected. Tests that require a diagnosis: * CMP DIAGNOSIS: * CBC W/O DIFF DIAGNOSIS: Provider Signature: Date: Thank you Xenia Pederson [employer] Once completed, please kindly fax back to [phone] For questions please call [phone]
== END | disposition home or self-care (01) ==
LOC: C.LABSPEC 15:43
PROVIDERS: ATTEND Internal Medicine
DX: E87.6 Hypokalemia (principal); D64.9 Anemia, unspecified; R18.8 Other ascites; J44.9 Chronic obstructive pulmonary disease, unspecified

== ENCOUNTER → 2017-03-03 | Outpatient (CLI) | payer OTHER ==
[~2017-03-03] MED LIST changes: +CALC1CAP36 PO; +DEXL60CA4 PO; +DICL1GEL12 TOP; +ERGO500011 PO; +FERR1TAB23 PO; +FRCT/ PO; +INSDGIPEN SC; +INSU1INJ23 SQ; +INSU32MI13 SQ; +LEVO100T7 PO; -LINA1CAP; +LINA1CAP PO; +LPR25 PO; +LVQ750 PO; +MIRA1TAB3 PO; +NRV5 PO; +NVLGI/PEN SQ; +NYST100010 TOP; +POTA1CAP2 PO; +PRED10TA PO; +TIOT1AER2 INH
[2017-03-03 12:05] LABS: HEMATOCRIT 41.9 % (37-47); MEAN CELL VOLUME 99.3 fL (80-100); MEAN CORPUSCULAR HEMOGLOBIN 31.3 pg (25-34); MEAN CORPUSCULAR HGB CONC 31.5 g/dl (32-36); MEAN PLATELET VOLUME 10.1 fL (7.4-10.4); PLATELET COUNT 198 K/uL (130-400); RED BLOOD COUNT 4.22 M/uL (4.2-5.4); WHITE BLOOD COUNT 10.86 K/uL (4.8-10.8)
[2017-03-03 12:17] LABS: BLOOD UREA NITROGEN 25 mg/dl (7-18); BUN/CREATININE RATIO 22.5 (10-20); CARBON DIOXIDE 27 mmol/L (21-32); CHLORIDE 102 mmol/L (98-107); GLUCOSE 91 mg/dl (70-99); GLUCOSE,FASTING 91 mg/dl (70-99); POTASSIUM 4.4 mmol/L (3.5-5.1); SODIUM 141 mmol/L (136-145)
[2017-03-03 12:24] LABS: CALCIUM 8.5 mg/dl (8.5-10.1)
[2017-03-03 12:51] LABS: ESTIMATED AVERAGE GLUCOSE 140 mg/dl; HA1C FLAG Normal (Normal)
[2017-03-03 13:07] LABS: COMPLETE YES; EOSINOPHIL % 0.9 %; LYMPH ABS # 1.43 K/uL (1.2-3.4); LYMPHOCYTE % 13.2 %; MYELOCYTE % 2.6 %; NEUTROPHILS % 77.2 %
== END | disposition home or self-care (01) ==
LOC: C.LABBFT 11:04
PROVIDERS: ATTEND Internal Medicine
DX: I10 Essential (primary) hypertension (principal); D64.9 Anemia, unspecified; E87.6 Hypokalemia; R73.09 Other abnormal glucose

== ENCOUNTER → 2017-03-06 | Outpatient (CLI) | payer OTHER ==
[~2017-03-06] MED LIST changes: +OPTIRAY 320 IV PRN
--- NOTE | 2017-03-06 15:41 | DIAGNOSTIC IMAGING REPORT ---
ABDOMEN AND PELVIS CT WITH IV AND ORAL CONTRAST CT DOSE: 1046.34 mGycm HISTORY: Pain ABDOMINAL PAIN, EDEMA, GASTROPARESIS TECHNIQUE: Multiaxial CT images of the abdomen and pelvis were performed following the use of intravenous and oral contrast. COMPARISON STUDY: 11/14/2016 FINDINGS: Trace pleural fluid and pleural thickening both lung bases. Mild dependent bibasilar atelectatic change. Stable postoperative changes to the thoracolumbar spine. Stable fatty infiltration of liver. Pancreas is fatty replaced but appears stable. Kidneys negative for hydronephrosis. Bowel pattern overall is nonobstructive. There is moderate fecal material throughout the colon. Bladder is midline. There is no free fluid within the pelvic cul-de-sac. The right rectus musculature is atrophic. Small periumbilical hernia. This contains fat exclusively. It is nonobstructive finding.. Musculature of the right abdominal and pelvic region is somewhat atrophic. This is unchanged in the prior exam. IMPRESSION: No acute process. Chronic/postoperative change. Electronically signed by: Vignesh Kim M.D. 03/06/2017 3:40 PM Dictated Date/Time: 03/06/2017 3:32 PM
== END | disposition home or self-care (01) ==
LOC: C.CTS 14:36
PROVIDERS: ATTEND Physician Assistant
DX: K31.84 Gastroparesis (principal); R60.9 Edema, unspecified; R10.9 Unspecified abdominal pain

== ENCOUNTER → 2017-03-24 | Outpatient (CLI) | payer OTHER ==
[~2017-03-24] MED LIST changes: -CALC1CAP36 PO; -DEXL60CA4 PO; -DICL1GEL12 TOP; -ERGO500011 PO; -FERR1TAB23 PO; -FRCT/ PO; -INSDGIPEN SC; -INSU1INJ23 SQ; -INSU32MI13 SQ; -LEVO100T7 PO; +LINA1CAP; -LINA1CAP PO; -LPR25 PO; -LSX40 PO; -LVQ750 PO; -MIRA1TAB3 PO; -NRV5 PO; -NVLGI/PEN SQ; -NYST100010 TOP; -OPTIRAY 320 IV PRN; -POTA1CAP2 PO; -PRED10TA PO; -TIOT1AER2 INH
[2017-03-24 17:11] LABS: BLOOD UREA NITROGEN 32 mg/dl (7-18); BUN/CREATININE RATIO 28.8 (10-20); CARBON DIOXIDE 30 mmol/L (21-32); CHLORIDE 101 mmol/L (98-107); GLUCOSE 172 mg/dl (70-99); MAGNESIUM 2.5 mg/dl (1.8-2.4); POTASSIUM 4.1 mmol/L (3.5-5.1); SODIUM 138 mmol/L (136-145)
== END | disposition home or self-care (01) ==
LOC: C.LAB1850 15:57
PROVIDERS: ATTEND Physician Assistant
DX: R60.9 Edema, unspecified (principal)

== ENCOUNTER → 2017-04-12 | Outpatient (CLI) | payer OTHER ==
[2017-04-12 14:04] LABS: BLOOD UREA NITROGEN 30 mg/dl (7-18); BUN/CREATININE RATIO 27.5 (10-20); CALCIUM 7.9 mg/dl (8.5-10.1); CARBON DIOXIDE 35 mmol/L (21-32); CHLORIDE 97 mmol/L (98-107); GLUCOSE 98 mg/dl (70-99); POTASSIUM 3.7 mmol/L (3.5-5.1); SODIUM 139 mmol/L (136-145)
== END | disposition home or self-care (01) ==
LOC: C.LABBC 09:56
PROVIDERS: ATTEND Physician Assistant
DX: R60.9 Edema, unspecified (principal)

== ENCOUNTER 2017-04-13 12:14 | Inpatient (IN) | payer OTHER ==
[~2017-04-13] VITALS: Ht 157.5 cm; Wt 99.5 kg
[~2017-04-13 12:14] MED LIST changes: -CEPH500C2 PO; -CLX20 PO; -DICL1GEL34 TD; -FERR324T PO; -KFL/250 PO; -LINA1CAP; -LORA-741 PO; -MCRK/10 PO; -MELA1TAB48 PO; -NUTR-31; -OYST1TAB; -PRD10 PO; -PRED20TA PO; -PSEU60TA80 PO; -SPRIN/30 INH; -TORS20TA2 PO
[2017-04-13 14:45] VITALS: BP 156/85; PULSE 105; TEMP 37.1; O2SAT 95; Ht 157.5 cm; Wt 99.5 kg
[2017-04-13] MEDS ORDERED: MELA1TAB48 PO (15:08)
[2017-04-13] MEDS ORDERED: MCRK/10 PO (15:20)
[2017-04-13] MEDS ORDERED: ALUMINUM/MAGNESIUM/SIMETH (MAALOX MAX) 30 ML UDC PO PRN (15:30)
[2017-04-13] MEDS ORDERED: MAGNESIUM HYDROXIDE SUSP 30 ML UDC PO PRN (15:30)
[2017-04-13] MEDS ORDERED: ONDANSETRON INJ 2 MG/ML 2 ML VIAL IV PRN (15:30)
[2017-04-13] MEDS ORDERED: ACETAMINOPHEN 325 MG TAB PO PRN (15:30)
[2017-04-13] MEDS ORDERED: NITROGLYCERIN 0.4 MG SL PER TAB CHARGE SL PRN (15:30)
[2017-04-13] MEDS ORDERED: POLYETHYLENE (MIRALAX) 17 GM PACK PO PRN (15:30)
[2017-04-13] MEDS ORDERED: PSEU60TA80 PO (15:31)
[2017-04-13] MEDS ORDERED: TORS20TA2 PO (15:31)
[2017-04-13] MEDS ORDERED: LORA-741 PO (15:31)
[2017-04-13] MEDS ORDERED: SPRIN/30 INH (15:31)
[2017-04-13] MEDS ORDERED: TIOT1AER (15:31)
[2017-04-13] MEDS ORDERED: DICL1GEL34 TD (15:31)
[2017-04-13] MEDS ORDERED: IPRA1AER2 INH (15:31)
[2017-04-13] MEDS ORDERED: ROPINIROLE HCL 0.25 MG TAB PO PRN (16:15)
[2017-04-13 16:24] VITALS: O2SAT 99
[2017-04-13 16:28] VITALS: O2SAT 99
[2017-04-13 16:28] LABS: MEAN CELL VOLUME 95.5 fL (80-100); MEAN CORPUSCULAR HEMOGLOBIN 32.1 pg (25-34); MEAN CORPUSCULAR HGB CONC 33.6 g/dl (32-36); MEAN PLATELET VOLUME 9.9 fL (7.4-10.4); PLATELET COUNT 175 K/uL (130-400); RED BLOOD COUNT 3.77 M/uL (4.2-5.4); WHITE BLOOD COUNT 11.67 K/uL (4.8-10.8)
--- NOTE | 2017-04-13 16:28 | History and Physical ---
History & Physical Date & Time of Service: Apr 13, 2017 at 16:14 Chief Complaint: Chf, Decomposation, Sob Primary Care Physician: Michael De Souza M.D. History of Present Illness Source: patient Ms. Philip is an 82 y/o female with PMHx of R Hemidiaphragm Paralysis S/P Plication, Asthma on Chronic Prednisone, Diastolic Congestive Heart Failure, CKD Stage III-IV, Hypothyroidism, and Paroxysmal Atrial Tachycardia who presents as a direct admission from the Pulmonology office for progressive SOB, UMANA, and bilateral lower extremity edema x weeks. This has been a progressive and ongoing issue for her with acute exacerbations and hospitalizations. She was admitted in November 2016 which revealed MRSA from sample taken from bronchoscopy. Patient reports that she was previously on Lasix but did not diurese well and was switched to Torsemide but is unable to tell me when this occurred. She feels that she has not had any improvement since Torsemide and her symptoms have progressively worsened. She recently got re-established with the lymphedema clinic but reports no improvement in her legs. She states fluid retention has been an ongoing issue for so long she is not sure of her dry weight and thinks it is 170-180 lbs. She has been undergoing evaluation with 6 minute walking tests and reports saturations in the 70s with limited steps. She feels that O2 has helped and currently is using 2 L at all times. She is having SOB at rest and reports increased SOB with limited movement including simple tasks as trying to get out of bed. She does report orthopnea. She has an associated intermittent cough that is largely non-productive and has been present for weeks and denies acute changes in quality of this cough. Outpatient records reviewed and consideration for Trilogy was made. She has been on chronic Prednisone 40 mg with previous attempts to wean but was not tolerated by the patient. This chronic steroids were a concern for possible etiology of ongoing symptoms. She reports she has noticed herself wheezing at home but states she has not had to use her inhalers/nebs for PRN use only scheduled purposes. She follows with Dr. Kelly and Jaun See PA-C. She denies fever /chills, CP, abdominal pain, N/V, dysuria, constipation/diarrhea, or sick contacts. She will be admitted to telemetry for possible acute on chronic diastolic CHF and suspect underlying pulmonary hypertension. Past Medical/Surgical History 1. Diastolic CHF 2. Asthma 3. R Diaphragmatic Paralysis S/P Plication 4. GERD 5. H/O Thyroid Cancer 6. Anxiety Disorder 7. Chronic Pain Syndrome 8. CKD Stage II-III 9. H/O MRSA Pneumonia 10. Hypothyroidism 11. Hyperlipidemia Family History Diabetes mellitus FH: cancer FH: gallbladder disease FH: heart disease FH: lung disease Hypertension Kidney disease or stones Social History Smoking Status: Never Smoker Smokeless Tobacco Use: No Alcohol Use: none Drug Use: none Marital Status: Housing status: lives with family Occupational Status: retired Immunizations History of Influenza Vaccine: N/A Influenza Vaccine Date: Jun 18, 2012 History of Tetanus Vaccine?: Yes Tetanus Immunization Date: Mar 18, 2004 History of Pneumococcal: Yes Pneumococcal Date: May 31, 2010 History of Hepatitis B Vaccine: No Multi-Drug Resistant Organisms History of MDRO: Yes Type of MDRO: MRSA Allergies Coded Allergies: Pneumococcal Vaccine (Verified Allergy, Severe, SHORTNESS OF BREATH, ) Erythromycin (Verified Allergy, Mild, RASH, 01/14/17) Adhesives (Verified Allergy, Unknown, TAPE-REDNESS, BLISTERS, 01/14/17) Metronidazole (Verified Allergy, Unknown, skin rash, 01/14/17) allergic to generic form Phenazopyridine (Verified Allergy, Unknown, abdominal pain/rash, 01/14/17) Polymyxin B (Verified Allergy, Unknown, 01/14/17) Salicylates (Verified Allergy, Unknown, pt states rash with ASA 325 but not ASA 81mg, 01/14/17) Sulfa Antibiotics (Verified Allergy, Unknown, "SULFA DRUGS" = RASH, ) Tetracycline (Verified Allergy, Unknown, RASH, 01/14/17) Morphine (Verified Adverse Reaction, Intermediate, urinary retention - oral morphine only, 01/14/17) Diltiazem (Verified Adverse Reaction, Mild, FLUID RETENTION, 01/14/17) Metoclopramide (Verified Adverse Reaction, Mild, TREMORS, 01/14/17) Bacitracin (Verified Adverse Reaction, Unknown, "MAKES IT WORSE"-OK IF NOT OTC MEDICATION, 01/14/17) OKAY IF NOT OVER THE COUNTER MEDICATION Home Medications Scheduled Calcium Carbonate (Calcium Carbonate), 1 TAB PO DAILY Cholecalciferol (Vitamin D3), 2,000 UNITS PO DAILY Citalopram Hydrobromide (Celexa), 30 MG PO QAM Cyanocobalamin (Vitamin B-12), 1,000 MCG PO QAM Diclofenac Sodium (Topical) (Diclofenac Sodium), 2 GM TD QID Gabapentin (Neurontin), 300 MG PO BID Ipratropium-Albuterol (Combivent Respimat), 1 PUFFS INH QID Ipratropium-Albuterol (Combivent Respimat), 1 PUFFS INH QID Levothyroxine Sodium (Levothyroxine Sodium), 88 MCG PO DAILY Lorazepam (Ativan), 0.5 MG PO HS Melatonin (Melatonin), 1 TAB PO HS Midodrine Hcl (Midodrine Hcl), 1 TAB PO TID Polyethylene Glycol-Propylene (Systane), 1 DROPS OPR QID Potassium Chloride (K-Tabs), 2 TABS PO BID Prednisone (Prednisone Tab), 0 PO DAILY Pseudoephedrine-Guaifenesin (Mucinex D), 1 TAB PO BID Riboflavin (Riboflavin), 1 TAB PO QAM Simvastatin (Zocor), 20 MG PO HS Spironolactone (Spironolactone), 25 MG PO BID Tiotropium [place] (Spiriva [place]), 1 CAP INH DAILY Tiotropium [place]-Olodaterol (Stiolto Respimat 2.5-2.5 Mcg/Act), 2 PUFFS DAILY Tiotropium [place]-Olodaterol (Stiolto Respimat 2.5-2.5 Mcg/Act), BID Tramadol (Ultram), 1 TAB PO TID Scheduled PRN Acetaminophen (Tylenol Arthritis Ext Rel), 650 MG PO Q4H PRN for Pain Hydrocodone/Homatropine (Hydromet), 1 DOSE PO DIRECTED PRN for Cough Ipratropium-Albuterol (Duoneb), 1 TREATMENT INH Q4H PRN for SOB/Wheezing Ropinirole (Requip), 0.5 MG PO HS PRN for RESTLESS LEGS Miscellaneous Medications Torsemide (Demadex), 20 MG PO Review of Systems Constitutional: No fever, No chills Eyes: No worsening of vision ENT: No nasal symptoms, No sore throat, No trouble swallowing Respiratory: + cough, + wheezing, + dyspnea on exertion, No sputum, No hemoptysis Cardiovascular: No chest pain, No palpitations Abdomen: No pain, No nausea, No vomiting, No diarrhea, No constipation, No GI bleeding Musculoskeletal: + swelling (bilateral lower extremity edema - progressive over weeks) Genitourinary - Female: + urinary frequency, No dysuria Neurologic: No vertigo Hematologic / Lymphatic: No abnormal bleeding/bruising Integumentary: No rash Physical Exam Vital Signs Date Time Temp Pulse Resp B/P (MAP) Pulse Ox O2 Delivery O2 Flow Rate FiO2 04/13/17 14:45 37.1 105 24 156/85 95 Nasal Cannula 2.0 General Appearance: WD/WN, no apparent distress Head: normocephalic, atraumatic Eyes: sclerae normal ENT: hearing grossly normal Neck: supple, no JVD, trachea midline Respiratory/Chest: no respiratory distress, no accessory muscle use, + crackles (bases bilaterally), + pertinent finding (good air flow without wheezing) Cardiovascular: regular rate, rhythm, no gallop, + systolic murmur Abdomen/GI: normal bowel sounds, non tender, soft, + distended Extremities/Musculoskelatal: + swelling (extensive bilateral pitting edema 3-4 + that extends to just above the knees bilaterally and is trace in this region) Neurologic/Psych: alert, oriented x 3 Skin: normal color, warm/dry Diagnostics Laboratory Results Results Past 24 Hours Test 04/13/17 15:25 Range/Units Microbiology Results 04/13/17 MRSA DNA Surveillance Screen, Received Pending Impression Assessment and Plan Ms. Philip is an 82 y/o female with PMHx of R Hemidiaphragm Paralysis S/P Plication, Asthma on Chronic Prednisone, Diastolic Congestive Heart Failure, CKD Stage III-IV, Hypothyroidism, and Paroxysmal Atrial Tachycardia who presents as a direct admission from the Pulmonology office for progressive SOB, UMANA, and bilateral lower extremity edema x weeks Acute on Chronic Hypoxic Respiratory Failure with R Hemidiaphragm Paralysis S/P Plication: Pulmonary HTN? - Supplemental O2 with wean as necessary - has been utilizing 2 L continuously at home - Given progressive nature of condition and no clear cause of CHF vs Pulm source - question underlying pulmonary HTN? - Obtain update echo - reviewed reading from November 2016 with EF 65-70%, no wall motion abnormalities, diastolic type I -- Of note patient has a H/O sclerotic aortic valve - CT Chest without contrast - has H/O MRSA pneumonia - does have mildly elevated WBC but likely from steroids Acute on Chronic Diastolic CHF: - Reporting dry weight of 170-180 but likely inaccurate - Hold Torsemide and spironolactone and give Lasix 40 mg IV x 1 dose and will assess diuresis and implement continued doses per evaluation - Daily weights and I&Os - Consult cardiology - appreciate recommendations Asthma on Chronic Prednisone: - Patient with short breaths but good airflow without wheezing - doesn't appear in exacerbation at this time - Duonebs FERDINAND and PRN - will hold home Combivent/Duonebs - continue Spiriva - Prednisone 40 mg daily - BSG AC and HS given chronic steroids - monitor and may need intervention pending readings CKD Stage III-IV: - Await labs and continue to monitor DVT Prophylaxis: Heparin SC Q8H Code Status: FULL RESUSCITATION Disposition: PT/OT evaluations 82 y/o/f with PMHx of R Hemidiaphragm Paralysis S/P Plication, Asthma on Chronic Prednisone, also has Diastolic CHF, Hypothyroidism, and PAT sent from Pulmonology office for progressive SOB, increase LE edema and weight gain . 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 Y/N: Yes Risk Level: Moderate Given or contraindicated: Unfractionated heparin SQ
[2017-04-13] MEDS ORDERED: FUROSEMIDE INJ 40 MG in SYRINGE 0 ML IV ONE (17:00)
[2017-04-13 17:02] LABS: ALB/GLOB RATIO 0.9 (0.9-2); ALKALINE PHOSPHATASE 64 U/L (45-117); ALT/SGPT 43 U/L (12-78); AST/SGOT 19 U/L (15-37); BLOOD UREA NITROGEN 32 mg/dl (7-18); BUN/CREATININE RATIO 26.9 (10-20); CALCIUM 7.9 mg/dl (8.5-10.1); CARBON DIOXIDE 32 mmol/L (21-32); CHLORIDE 96 mmol/L (98-107); GLUCOSE 151 mg/dl (70-99); POTASSIUM 3.5 mmol/L (3.5-5.1); SODIUM 138 mmol/L (136-145)
--- NOTE | 2017-04-13 17:09 | DIAGNOSTIC IMAGING REPORT ---
CT OF THE CHEST WITHOUT IV CONTRAST CLINICAL HISTORY: Dyspnea. COMPARISON STUDY: Chest CT January 14, 2017 and chest radiograph January 23, 2017. CT DOSE: 617.79 mGycm TECHNIQUE: Axial images of the chest were obtained without IV contrast. Images were reviewed in the axial, sagittal, and coronal planes. IV contrast was not administered for this examination. A dose lowering technique was utilized adhering to the principles of ALARA. FINDINGS: Incidental note is made of bilateral shoulder arthroplasties and multilevel postoperative findings within the cervical and thoracic lumbar spines. The heart is moderately enlarged. There is no pericardial effusion. No enlarged thoracic lymph nodes are present. There is no pneumothorax. A small right pleural effusion has not significant changed since CT of March 06, 2017. Associated right lower lobe opacity suggest atelectasis. There is no consolidation to suggest pneumonia. Lungs are suboptimally assessed due to respiratory motion. There are multiple subacute to chronic bilateral rib fractures. Fatty infiltration of the liver is noted. IMPRESSION: 1. No significant change in a small right pleural effusion with associated airspace opacity suggestive of atelectasis. 2. Bilateral lower lobe, lingular and right middle lobe opacities suggestive of atelectasis. No consolidation to suggest pneumonia. Electronically signed by: Jake Lo M.D. 04/13/2017 5:08 PM Dictated Date/Time: 04/13/2017 5:01 PM
[2017-04-13 17:16] LABS: BASO % 0.2 %; BASO ABS # 0.02 K/uL (0-0.2); COMPLETE YES; EOS % 0.4 %; IG% 5.4 %; LYMPH % 14.7 %; LYMPH ABS # 1.71 K/uL (1.2-3.4); MONO % 8.7 %; NEUT % 70.6 %; TEAR DROP CELLS OCCASIONAL
[2017-04-13] MEDS: DICLOFENAC SOD 1% GEL 100 GM TUBE EXT SCH ×2 (17:20→20:26)
[2017-04-13] MEDS: ALBUT/IPRATROP 3MG/0.5MG NEB 3 ML VIAL INH SCH ×2 (19:22→19:44)
[2017-04-13 19:23] VITALS: PULSE 80; O2SAT 94
[2017-04-13 19:54] VITALS: BP 134/81; PULSE 104; TEMP 36.5; O2SAT 93
[2017-04-13] MEDS: LORAZEPAM 0.5 MG TAB PO SCH (20:26)
[2017-04-13] MEDS: TRAMADOL HCL 50 MG TAB PO SCH (20:27)
[2017-04-13] MEDS: HEPARIN SOD 5000 UNIT/0.5 ML CARP SQ SCH (20:28)
[2017-04-13] MEDS: MIDODRINE 2.5 MG TAB PO SCH (20:28)
[2017-04-13] MEDS: SIMVASTATIN 20 MG TAB PO SCH (20:28)
[2017-04-13] MEDS: GABAPENTIN 300 MG CAP PO SCH (20:29)
[2017-04-13] MEDS ORDERED: CEFTRIAXONE SOD INJ 1 GM in DEXTROSE 5% ADD-VANTAGE 50ML 50 ML IV SCH (22:00)
[2017-04-13 23:35] VITALS: BP 135/77; PULSE 103; TEMP 36.7; O2SAT 97
[2017-04-14] VITALS (11 sets, daily range): BP systolic 111–175; BP diastolic 71–95; PULSE 88–106; TEMP 36.8–37.5; O2SAT 92–98
[2017-04-14 06:29] LABS: HEMATOCRIT 37.2 % (37-47); MEAN CELL VOLUME 97.6 fL (80-100); MEAN CORPUSCULAR HEMOGLOBIN 31.5 pg (25-34); MEAN CORPUSCULAR HGB CONC 32.3 g/dl (32-36); MEAN PLATELET VOLUME 9.9 fL (7.4-10.4); PLATELET COUNT 165 K/uL (130-400); RED BLOOD COUNT 3.81 M/uL (4.2-5.4); WHITE BLOOD COUNT 11.56 K/uL (4.8-10.8)
[2017-04-14] MEDS: HEPARIN SOD 5000 UNIT/0.5 ML CARP SQ SCH ×3 (06:39→22:00)
[2017-04-14] MEDS: LEVOTHYROXINE 88 MCG TAB PO SCH (06:40)
[2017-04-14 07:02] LABS: BUN/CREATININE RATIO 23.2 (10-20); CALCIUM 7.8 mg/dl (8.5-10.1); CREATININE 1.3 mg/dl (0.60-1.20); MAGNESIUM 2.1 mg/dl (1.8-2.4); POTASSIUM 3.6 mmol/L (3.5-5.1)
[2017-04-14 07:05] LABS: ALB/GLOB RATIO 0.9 (0.9-2); PHOSPHORUS 3.9 mg/dl (2.5-4.9)
[2017-04-14 07:18] LABS: BASOPHIL % 0.9 %; COMPLETE YES; EOSINOPHIL % 0.9 %; LYMPH ABS # 1.02 K/uL (1.2-3.4); LYMPHOCYTE % 8.8 %; MYELOCYTE % 4.4 %; NEUTROPHILS % 82.3 %
[2017-04-14] MEDS: ALBUT/IPRATROP 3MG/0.5MG NEB 3 ML VIAL INH SCH ×4 (07:30→18:59)
[2017-04-14] MEDS: LACTOBACILLUS ACIDOPHILUS 1 GM PACK PO SCH ×3 (08:38→17:47)
[2017-04-14] MEDS: FUROSEMIDE INJ 20 MG in SYRINGE 0 ML IV SCH ×2 (08:38→20:07)
[2017-04-14] MEDS: CYANOCOBALAMIN 500 MCG TAB (VIT B-12) PO SCH (08:39)
[2017-04-14] MEDS: GABAPENTIN 300 MG CAP PO SCH ×2 (08:39→20:08)
[2017-04-14] MEDS: MIDODRINE 2.5 MG TAB PO SCH ×3 (08:39→17:47)
[2017-04-14] MEDS: DICLOFENAC SOD 1% GEL 100 GM TUBE EXT SCH ×4 (08:40→20:08)
[2017-04-14] MEDS: TIOTROPIUM BROMIDE 5 PUFF/90 MCG INH INH SCH (08:41)
[2017-04-14] MEDS: TRAMADOL HCL 50 MG TAB PO SCH ×3 (08:58→20:07)
[2017-04-14] MEDS: CITALOPRAM 20 MG TAB PO SCH (09:37)
--- NOTE | 2017-04-14 12:26 | Cardiology Consultation ---
Cardiology Consultation Date of Consultation: Apr 14, 2017. Requesting Physician: Dr. Morgan Attending Physician: Dr. Yuen Pt evaluation today including: conversation w/ patient, physical exam, chart review, lab review, review of studies, review of inpatient medication list, conversation w/ attending History of Present Illness Ms. 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 She has had the following studies/procedures: 1. Cardiac catheterization 04/20/2007: No CAD. 2. Echo 04/30/2016: Small LV cavity size. LV EF greater than 65%. Type 1 diastolic dysfunction. Normal wall motion. Sclerotic aortic valve without significant stenosis. 3. Echo 10/21/2016: Normal LV size and systolic function. EF 65-70%. No regional wall motion abnormalities. Mild concentric LVH. Grade 1 diastolic dysfunction. No significant valvular abnormalities. 4. Limited echo 11/30/2016: Normal LV size and systolic function. EF 65-70%. Estimated RVSP at the upper limits of normal at 30 mmHg. Central venous pressure normal. Patient was directly admitted from her [facility] office yesterday due to complaints of increased shortness of breath and lower extremity edema. The patient has had multiple hospitalizations this year to due to shortness of breath. During her hospitalization in , she underwent diagnostic bronchoscopy and bacterial cultures ultimately grew MRSA. She has continued to struggle with shortness of breath over the last few months, and has required chronic high dose prednisone therapy. Her shortness of breath occurs at rest and is worsened with minimal exertion as well as with lying flat. She has had increased lower extremity edema as well. Her Lasix was recently switched to Torsemide as an outpatient in hopes of providing better diuresis. She was also referred to the lymphedema clinic. Despite these interventions, her symptoms continued to worsen, leading to her admission yesterday. Patient was seen at bedside today. The head of her bed is elevated at about 45 degrees. She continues to feel short of breath. Her legs are still edematous and tender to touch. She denies chest pain or other anginal type symptoms. She denies lightheadedness, syncope, or presyncope. She denies abnormal bleeding or cerebrovascular symptoms. She notes a nonproductive cough with occasional wheezing. She denies chills. She denies GI/ symptoms. Review of Systems: As noted in HPI. All other 10 point ROS otherwise negative. Family History Diabetes mellitus FH: cancer FH: gallbladder disease FH: heart disease FH: lung disease Hypertension Kidney disease or stones Social History Smoking Status: Never Smoker History of Alcohol Use: No Allergies Coded Allergies: Pneumococcal Vaccine (Verified Allergy, Severe, SHORTNESS OF BREATH, ) Erythromycin (Verified Allergy, Mild, RASH, 01/14/17) Adhesives (Verified Allergy, Unknown, TAPE-REDNESS, BLISTERS, 01/14/17) Metronidazole (Verified Allergy, Unknown, skin rash, 01/14/17) allergic to generic form Phenazopyridine (Verified Allergy, Unknown, abdominal pain/rash, 01/14/17) Polymyxin B (Verified Allergy, Unknown, 01/14/17) Salicylates (Verified Allergy, Unknown, pt states rash with ASA 325 but not ASA 81mg, 01/14/17) Sulfa Antibiotics (Verified Allergy, Unknown, "SULFA DRUGS" = RASH, ) Tetracycline (Verified Allergy, Unknown, RASH, 01/14/17) Morphine (Verified Adverse Reaction, Intermediate, urinary retention - oral morphine only, 01/14/17) Diltiazem (Verified Adverse Reaction, Mild, FLUID RETENTION, 01/14/17) Metoclopramide (Verified Adverse Reaction, Mild, TREMORS, 01/14/17) Bacitracin (Verified Adverse Reaction, Unknown, "MAKES IT WORSE"-OK IF NOT OTC MEDICATION, 01/14/17) OKAY IF NOT OVER THE COUNTER MEDICATION Medications Current Inpatient Medications Medications (Trade) Dose Ordered Sig/Natasha Route Start Time Stop Time Status Last Admin Dose Admin Acetaminophen (Tylenol Tab) 650 mg Q4H PRN PO 04/13/17 15:30 05/13/17 15:29 Al Hydrox/Mg Hydrox/Simethicone (Maalox Max Susp) 15 ml Q4H PRN PO 04/13/17 15:30 05/13/17 15:29 Magnesium Hydroxide (Milk Of Magnesia Susp) 30 ml Q12H PRN PO 04/13/17 15:30 05/13/17 15:29 Ondansetron HCl (Zofran Inj) 4 mg Q6H PRN IV 04/13/17 15:30 05/13/17 15:29 Nitroglycerin (Nitrostat Tab) 0.4 mg UD PRN SL 04/13/17 15:30 05/13/17 15:29 Polyethylene (Miralax Powder Packet) 17 gm DAILY PRN PO 04/13/17 15:30 05/13/17 15:29 Citalopram Hydrobromide (celeXA TAB) 30 mg QAM PO 04/14/17 09:00 05/14/17 08:59 04/14/17 09:37 30 MG Cyanocobalamin (Vitamin B-12 Tab) 1,000 mcg QAM PO 04/14/17 09:00 05/14/17 08:59 04/14/17 08:39 1,000 MCG Diclofenac Sodium (Voltaren 1% Top Gel) 1 appln QID EXT 04/13/17 17:00 05/13/17 16:59 04/14/17 08:40 1 APPLN Gabapentin (Neurontin Cap) 300 mg BID PO 04/13/17 21:00 05/13/17 20:59 04/14/17 08:39 300 MG Levothyroxine Sodium (Synthroid Tab) 88 mcg DAILYBB PO 04/14/17 06:00 05/14/17 05:59 04/14/17 06:40 88 MCG Lorazepam (Ativan Tab) 0.5 mg HS PO 04/13/17 21:00 05/13/17 20:59 04/13/17 20:26 0.5 MG Midodrine (Proamatine Tab) 2.5 mg TID@0800,1200,1800 PO 04/13/17 21:00 05/13/17 20:59 04/14/17 08:39 2.5 MG Ropinirole HCl (Requip Tab) 0.5 mg HS PRN PO 04/13/17 16:15 05/13/17 16:14 04/14/17 08:41 0.5 MG Simvastatin (Zocor Tab) 20 mg HS PO 04/13/17 21:00 05/13/17 20:59 04/13/17 20:28 20 MG Tiotropium Wrens (Spiriva Handihaler Inhaler) 1 puff DAILY INH 04/14/17 09:00 8/27/17 08:59 04/14/17 08:41 1 PUFF Tramadol HCl (Ultram Tab) 50 mg TID PO 04/13/17 21:00 05/13/17 20:59 04/14/17 08:58 50 MG Miscellaneous Information (Order Awaiting Action) 1 ea QS N/A 04/14/17 00:00 05/14/17 00:00 Albuterol/ Ipratropium (Duoneb) 3 ml QIDR INH 04/13/17 20:00 05/13/17 19:59 04/14/17 07:30 3 ML Heparin Sodium (Porcine) (Heparin Sq 5000 Unit/0.5ml) 5,000 unit Q8 SQ 04/13/17 22:00 05/13/17 21:59 04/14/17 06:39 5,000 UNIT Prednisone (PredniSONE TAB) 40 mg DAILY PO 04/14/17 09:00 05/14/17 08:59 04/14/17 08:39 40 MG Furosemide 20 mg/ Syringe 2 ml @ 4 mls/min BID IV 04/14/17 09:00 05/14/17 08:59 04/14/17 08:38 4 MLS/MIN Lactobacillus Acidophilus (Lactinex Granules Pack) 1 gm TIDM PO 04/14/17 07:30 05/14/17 07:29 04/14/17 08:38 1 GM Ceftriaxone Sodium 1 gm/ Dextrose 50 ml @ 100 mls/hr Q24H IV 04/13/17 22:00 04/23/17 21:59 04/13/17 22:25 100 MLS/HR Physical Exam Vital Signs Past 12 Hours Date Time Temp Pulse Resp B/P (MAP) Pulse Ox O2 Delivery O2 Flow Rate FiO2 04/14/17 08:37 37.5 104 22 136/81 (99) 93 Nasal Cannula 2.0 04/14/17 07:30 95 18 95 Nasal Cannula 3.0 04/14/17 04:00 Nasal Cannula 2.0 04/14/17 03:48 37.2 102 20 160/85 (110) 95 Nasal Cannula 3.0 04/14/17 00:00 Nasal Cannula 2.0 04/13/17 23:35 36.7 103 18 135/77 (96) 97 Nasal Cannula 3.0 Constitutional: Somnolent, in no acute distress HEENT: Head is atraumatic and normocephalic. EOMs intact. Sclera anicteric. Face is symmetric. No perioral cyanosis. Mucous membranes moist. Neck: Supple, no appreciable JVD but difficult exam due to thick neck Pulmonary: Normal respiratory effort, decreased breath sounds in the bilateral lower lung madden Cardiac: Regular rate and rhythm, normal S1 and S2, no gallops, no rubs, 1/6 basal systolic ejection murmur Extremities: +2 lower extremity edema bilaterally. No clubbing or cyanosis. Pulses intact. Abdomen: Obese. Normal bowel sounds, soft, non-tender, no abdominal mass palpated Skin: Normal skin color, turgor, and pigmentation, no rash, no skin lesions Neurological: Oriented to person, place, and time Data Laboratory Results: Last 24 Hours Test 04/13/17 16:14 04/14/17 06:23 04/14/17 08:13 White Blood Count 11.67 K/uL 11.56 K/uL Red Blood Count 3.77 M/uL 3.81 M/uL Hemoglobin 12.1 g/dL 12.0 g/dL Hematocrit 36.0 % 37.2 % Mean Corpuscular Volume 95.5 fL 97.6 fL Mean Corpuscular Hemoglobin 32.1 pg 31.5 pg Mean Corpuscular Hemoglobin Concent 33.6 g/dl 32.3 g/dl Platelet Count 175 K/uL 165 K/uL Mean Platelet Volume 9.9 fL 9.9 fL Neutrophils (%) (Auto) 70.6 % Lymphocytes (%) (Auto) 14.7 % Monocytes (%) (Auto) 8.7 % Eosinophils (%) (Auto) 0.4 % Basophils (%) (Auto) 0.2 % Neutrophils # (Auto) 8.25 K/uL Lymphocytes # (Auto) 1.71 K/uL Monocytes # (Auto) 1.01 K/uL Eosinophils # (Auto) 0.05 K/uL Basophils # (Auto) 0.02 K/uL RDW Standard Deviation 58.8 fL 61.8 fL RDW Coefficient of Variation 16.8 % 17.3 % Immature Granulocyte % (Auto) 5.4 % Immature Granulocyte # (Auto) 0.63 K/uL Nucleated RBC Absolute Count (auto) 0.02 K/uL 0.03 K/uL Nucleated Red Blood Cells % 0.2 % 0.2 % Tear Drop Cells OCCASIONAL D-Dimer 340 ug/L FEU Sodium Level 138 mmol/L 140 mmol/L Potassium Level 3.5 mmol/L 3.6 mmol/L Chloride Level 96 mmol/L 95 mmol/L Carbon Dioxide Level 32 mmol/L 36 mmol/L Anion Gap 10.0 mmol/L 9.0 mmol/L Blood Urea Nitrogen 32 mg/dl 30 mg/dl Creatinine 1.20 mg/dl 1.30 mg/dl Est Creatinine Clear Calc Drug Dose 41.8 ml/min 38.5 ml/min Estimated GFR () 49.4 44.9 Estimated GFR (Non- 42.7 38.7 BUN/Creatinine Ratio 26.9 23.2 Random Glucose 151 mg/dl 119 mg/dl Calcium Level 7.9 mg/dl 7.8 mg/dl Total Bilirubin 0.5 mg/dl 0.7 mg/dl Aspartate Amino Transf (AST/SGOT) 19 U/L 18 U/L Alanine Aminotransferase (ALT/SGPT) 43 U/L 40 U/L Alkaline Phosphatase 64 U/L 62 U/L Troponin I < 0.015 ng/ml Pro-B-Type Natriuretic Peptide 171 pg/ml Total Protein 6.6 gm/dl 6.4 gm/dl Albumin 3.2 gm/dl 3.1 gm/dl Globulin 3.4 gm/dl 3.3 gm/dl Albumin/Globulin Ratio 0.9 0.9 Neutrophils % (Manual) 82.3 % Lymphocytes % (Manual) 8.8 % Monocytes % (Manual) 2.7 % Eosinophils % (Manual) 0.9 % Basophils % (Manual) 0.9 % Myelocytes % 4.4 % Neutrophils # (Manual) 9.51 K/uL Total Absolute Neutrophils 9.51 K/uL Lymphocytes # (Manual) 1.02 K/uL Total Absolute Lymphocytes 1.02 K/uL Monocytes # (Manual) 0.31 K/uL Eosinophils # (Manual) 0.10 K/uL Basophils # (Manual) 0.10 K/uL Myelocytes # 0.51 K/uL Hypogranular Neutrophils 1+ Lactic Acid Level 2.5 mmol/L Phosphorus Level 3.9 mg/dl Magnesium Level 2.1 mg/dl C-Reactive Protein 2.90 mg/dl Procalcitonin 0.11 ng/ml Chest CT: 1. No significant change in a small right pleural effusion with associated airspace opacity suggestive of atelectasis. 2. Bilateral lower lobe, lingular and right middle lobe opacities suggestive of atelectasis. No consolidation to suggest pneumonia. EKG today shows sinus rhythm at 95 bpm. Nonspecific T wave abnormality. Telemetry reviewed: Sinus rhythm in the ' Assessment & Plan ASSESSMENT/PLAN: 1. Shortness of breath: Etiology uncertain but appears to be multifactorial. She has a history of right hemidiaphragm paralysis with a history of plication in 08/2016. She also has asthma for which she is on chronic prednisone therapy. In addition, she appears hypervolemic and is now being diuresed with IV Lasix. She has been ordered a repeat echocardiogram to further evaluate for pulmonary hypertension, although, her studies have been normal in the past. 2. Hypervolemia: Her BNP is 171. Her BNPs have not been elevated on several occasions in the past. In fact, her highest BNP has been 226. Acute congestive heart failure is therefore not likely. Hypervolemia is possible, however, especially with chronic steroid treatment. It is reasonable to continue with IV Lasix therapy for diuresis. If she does not have adequate fluid output, would increase the dose to 40 mg twice daily. Continue to monitor PRP closely while on diuretic therapy. 3. Orthostatic hypotension: She is on midodrine and currently asymptomatic. 4. Hypertension: Will have to accept some degree of hypertension due to orthostatic symptoms in the past. Thank you for allowing us to see this patient in consultation. Dr. Yuen will also be in to see the patient later today. Attending note: Patient's echocardiogram revealed essentially normal LV systolic function. She is noted to have an element of diastolic dysfunction which is mild an age- appropriate. Her low N terminal proBNP also makes pulmonary edema on unlikely etiology for her hypoxemia and persistent dyspnea. She appears to have preserved RV function on echocardiography. While the possibility of right- sided failure exists, especially in the setting of pulmonary disease, this is not the proven etiology for lower extremity edema. In the absence of improvement with the measures undertaken or 4 persistent questions regarding the true etiology of her symptoms right heart catheterization could be entertained in order to determine pulmonary and right-sided heart pressures. At this time however he continued diuresis primarily for possible improvement of lower extremity edema. We will monitor the results of her other testing and progression of symptoms while hospitalized.
[2017-04-14 15:32] LABS: ALLEN TEST POS (POS); ARTERIAL BLD GAS O2 SATURATION 96.9 % (90-95); ARTERIAL BLOOD GAS HCO3 29 mmol/L (19-24); ARTERIAL BLOOD GAS PO2 87 mm/Hg (80-95); ARTERIAL BLOOD GAS pH 7.46 (7.35-7.45); O2 ADMINISTRATION 2 LITERS
--- NOTE | 2017-04-14 16:20 | Pulmonary Consultation ---
History General Date of Service: Apr 14, 2017. Stated Complaint: Chf, Decomposation, Sob HPI The patient is a 82 year old female who presents to [facility] [address] with complaints of Chf, Decomposation, Sob. The patient's primary care provider is Michael De Souza M.D.. 82-year-old female being admitted for progressive shortness of breath and global decompensation. Patient isn't past medical history significant for mild diffusion abnormality, right hemidiaphragmatic paralysis undergoing fundoplication and mild diastolic heart failure. She has had progressive dyspnea and fatigue over the past year which is notably progressed in the last 3 -4 months. Over that time she has also had increasing global edema is been followed up by cardiology, pulmonary and lymphedema clinic. She's had increased/ aggressive diuresis with little benefit. She also notes bilateral lower extremity myalgias/neuralgias which are progressive over this period of time. She currently denies: Fever, chills, or active cough, classic cardiac chest pain , pleurisy, unintentional weight loss, vertigo or palpitations. Current Work-Up WBC: 12K H/H: 12/36 PLT: 165K D-dimer: 340 BUN/Cr: 30/1.30 Lactic: 2.5H CRP: 2.90H Pro-PNB: 171 ALB: 3.1 Procalcitonin: 0.11 CT Thorax compared to 01/14/17 CAT Chest Continued right pleural effusion with associated atelectasis Bilateral lower lobe, Lingular, RML opacifications suggestive of atelectasis AB04/14/17 7. (5L) A-a Gradient: 100 Previous Work-Up: Hart/lambda ratio: 06/03/13: 1.43 03/26/15: 1.89H CXR (10/21/16) bilateral costo-phrenic blunting with infiltrate vs. ateltectasis Abdominal US (10/23/16) mild YATES otherwise WNL Thoracic CTA (10/20/16) compared to 10/17/16 a. No PE b. Small rt sided pleural effusion with infiltrates vs. ateltectasis c. LLL 6mm pulmonary nodule d. Lingular infiltrate e. Vascular congestion f. RLL infiltrate ABG 1) 04/14/17 7.46/42/87/29 (5L) A-a Gradient: 100 2) 01/18/17 7.50/42/68/32 (RA) A-a Gradient: 23 3) 01/14/17 7.45/45//31 (3L) A-a Gradient: 56 4) 12/01/16 7.49/37//27 (35%) A-a Gradient: 100 5) 11/25/16 7.49/38//28 (3L) A-a Gradient: 70 6) 11/11/16 7.51/34// (RA) A-a Gradient: 34 7) 10/23/16 7.52//77/23 (RA) A-a Gradient: 33 8) 08/27/16 7.43/46/75/30 (1.5L) A-a Gradient: 48 9) 09/22/15 7.42/// (RA) A-a Gradient: 55 Cardiac Echo (10/21/16) a. LV: mild LVH, EF=65-70% b. RV: function WNL, TAPSE >1.5cm c. Lipomatous hypertrophy of the inter-atrial septum is noted d. IVC Sniff: WNL Cardiac catheterization 04/20/2007: No CAD. Echo 04/30/2016: Small LV cavity size. LV EF greater than 65%. Type 1 diastolic dysfunction. Normal wall motion. Sclerotic aortic valve without significant stenosis. Echo 10/21/2016: Normal LV size and systolic function. EF 65-70%. No regional wall motion abnormalities. Mild concentric LVH. Grade 1 diastolic dysfunction. No significant valvular abnormalities. Limited echo 11/30/2016: Normal LV size and systolic function. EF 65-70%. Estimated RVSP at the upper limits of normal at 30 mmHg. Central venous pressure normal. Primary function studies 08/07/16 Spirometry: Within normal limits Lung lungs: Mild elevation of the residual volume Mildly decreased diffusion capacity without alveolar volume correction at 70% Bronchoscopy 07/06/2017 Trachea: Ely dependent posterior wall mucous plugs and erythema, possible secretions Left bronchial tree: Posterior wall erythema with diffuse mucous plugs and oral secretions Right bronchial tree: Posterior wall erythema with diffuse mucous plugs oral secretions Medications: 1) Spiriva 2) Prednisone 40mg 3) Ceftriaxone 1G 4) Duo-Neb Historian: patient, family, EMS Review of Systems Constitutional: reports: malaise, weakness Eyes: reports: other (periorbital edema) ENT: reports: no symptoms Cardiovascular: reports: as stated in HPI Respiratory: reports: as stated in HPI Gastrointestinal: reports: no symptoms Genitourinary - Female: reports: urinary frequency Musculoskeletal: reports: myalgias Integumentary: reports: no symptoms Neurologic: reports: general weakness Psychiatric: reports: depression Endocrine: no symptoms Hematologic / Lymphatic: no symptoms Allergic / Immunologic: no symptoms Past Medical History Past Medical History: 1. 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 Lt Rib Fx s/p fall 3. Mild Asthma 4. Sever DJD 5. GERD 6. CFI 7. Fibromyalgia 8. Microbiology URINE: (07/24/15) Escherichia coli (09/01/15) Enterococcus faecalis (12/08/15) Lactobacillus species (11/25/16) Citrobacter species BAL (01/25/16) fungal species (06/30/16) fungal species (11/28/16) MRSA (01/15/17) fungal species Blood (04/24/16) Propionibacterium acnes 9. OA 10. Chronic Rhinitis 11. Hyperlipidemia 12. Benign colonic polyps 13. Secondary Hypothyroidism-Ca 14. Vaginal wall prolapse with cystocele 15. Thyroid CA 16. Childbirth x3 17. Concussion fall 2015 18. 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 Hypertension 20. Paroxysmal atrial tachycardia 21. Restless leg syndrome 22. Diastolic heart failure Past Medical History: anxiety, asthma, depression, hypothyroidism, osteoarthritis, urinary tract infection, other Past Surgical History: 1. Cervical and lumbar arthrodesis 2. Hysterectomy 3. Knee arthroplasty 4. Right and Left shoulder replacements 5. Subtotal thyroidectomy-Ca 6. Tonsil/adenoidectomy 7. Vaginal sling 8. Adrenalectomy 9. Appendectomy 10. Lt cataract surgery 11. Thoracolumbar surgery 12. Harpreet-Fundoplication 13. Right Curtis-diaphragmatic plication 08/26/16 14. Cervical fusion Past Surgical History: adenoidectomy, appendectomy, hysterectomy, orthopedic surgery, spinal surgery, thyroidectomy, TKR, tonsillectomy Family History Diabetes mellitus FH: cancer FH: gallbladder disease FH: heart disease FH: lung disease Hypertension Kidney disease or stones Diabetes mellitus cancer gallbladder disease heart disease lung disease Hypertension Kidney disease or stones Social History Hx Tobacco Use In Past Year?: No Smoking Status: Never Smoker, secondhand smoke exposure Alcohol: no current use Drug Use: none Marital status: single Housing status: lives with family Occupational Status: retired Hx Tobacco Use In Past Year?: No Smoking Status: Never Smoker Alcohol: no current use Drug Use: none Marital status: Housing status: lives with family Occupational Status: retired Immunizations History of Influenza Vaccine: N/A Influenza Vaccine Date: Jun 18, 2012 History of Tetanus Vaccine?: Yes Tetanus Immunization Date: Mar 18, 2004 History of Pneumococcal: Yes Pneumococcal Date: May 31, 2010 History of Hepatitis B Vaccine: No History of MDRO History of MDRO: Yes Type of MDRO: MRSA Allergies Coded Allergies: Pneumococcal Vaccine (Verified Allergy, Severe, SHORTNESS OF BREATH, ) Erythromycin (Verified Allergy, Mild, RASH, 01/14/17) Adhesives (Verified Allergy, Unknown, TAPE-REDNESS, BLISTERS, 01/14/17) Metronidazole (Verified Allergy, Unknown, skin rash, 01/14/17) allergic to generic form Phenazopyridine (Verified Allergy, Unknown, abdominal pain/rash, 01/14/17) Polymyxin B (Verified Allergy, Unknown, 01/14/17) Salicylates (Verified Allergy, Unknown, pt states rash with ASA 325 but not ASA 81mg, 01/14/17) Sulfa Antibiotics (Verified Allergy, Unknown, "SULFA DRUGS" = RASH, ) Tetracycline (Verified Allergy, Unknown, RASH, 01/14/17) Morphine (Verified Adverse Reaction, Intermediate, urinary retention - oral morphine only, 01/14/17) Diltiazem (Verified Adverse Reaction, Mild, FLUID RETENTION, 01/14/17) Metoclopramide (Verified Adverse Reaction, Mild, TREMORS, 01/14/17) Bacitracin (Verified Adverse Reaction, Unknown, "MAKES IT WORSE"-OK IF NOT OTC MEDICATION, 01/14/17) OKAY IF NOT OVER THE COUNTER MEDICATION Current Medications Reported Home Medications Medications Dose Route/Sig Max Daily Dose Days Date Category Dose Instructions Spiriva Handihaler (Tiotropium [place]) 30 Puff/540 Mcg Aerp 1 Cap INH DAILY 04/13/17 Reported Demadex (Torsemide) 20 Mg Tab 20 Mg PO 04/13/17 Reported Stiolto Respimat 2.5-2.5 Mcg/Act (Tiotropium [place]-Olodaterol) 1 Aer Aer BID 04/13/17 Reported Combivent Respimat (Ipratropium-Albuterol) 1 Aer Aer 1 Puffs INH QID 04/13/17 Reported Mucinex D (Pseudoephedrine-Guaifenesin) 1 Tab Tab 1 Tab PO BID 10 04/13/17 Reported Diclofenac Sodium (Diclofenac Sodium (Topical)) 1 % Gel 2 Gm TD QID 04/13/17 Reported Ativan (Lorazepam) 0.5 Mg Tab 0.5 Mg PO HS 04/13/17 Reported K-Tabs (Potassium Chloride) 10 Meq Tabcr 2 Tabs PO BID 04/13/17 Reported Melatonin 10 Mg Tab 1 Tab PO HS 04/13/17 Reported Stiolto Respimat 2.5-2.5 Mcg/Act (Tiotropium [place]-Olodaterol) 1 Aer Aer 2 Puffs DAILY 02/09/17 Reported Ultram (Tramadol HCl) 50 Mg Tab 1 Tab PO TID 30 02/09/17 Reported Prednisone Tab (Prednisone) 20 Mg Tab 0 PO DAILY 02/09/17 Reported 2 TABS DAILY FOR 2 DAYS, THEN 1 TAB DAILY FOR 2 DAYS, THEN 1/2 TAB DAILY FOR 2 DAYS. Spironolactone 25 Mg Tab 25 Mg PO BID 30 01/28/17 Rx Hydromet (Hydrocodone Bit/Homatropine Methylb) 1 Ml Syrp 1 Dose PO DIRECTED PRN 9 01/14/17 Reported Neurontin (Gabapentin) 300 Mg Cap 300 Mg PO BID 01/14/17 Reported Celexa (Citalopram Hydrobromide) 20 Mg Tab 30 Mg PO QAM 01/14/17 Reported Combivent Respimat (Ipratropium-Albuterol) 1 Aer Aer 1 Puffs INH QID 01/14/17 Reported Vitamin D3 (Cholecalciferol) 1,000 Inter.unit Tab 2,000 Units PO DAILY 01/14/17 Reported Duoneb (Ipratropium-Albuterol) 3 Ml Nebu 1 Treatment INH Q4H PRN 10/20/16 Reported Systane (Polyethylene Glycol-Propylene) 1 Renetta Renetta 1 Drops OPR QID 06/30/16 Reported Levothyroxine Sodium 88 Mcg Tab 88 Mcg PO DAILY 90 05/09/16 Reported Requip (Ropinirole HCl) 0.25 Mg Tab 0.5 Mg PO HS PRN 04/24/16 Reported Tylenol Arthritis Ext Rel (Acetaminophen) 650 Mg Cplt 650 Mg PO Q4H PRN 02/26/16 Reported Calcium Carbonate 1,250 Mg Tab 1 Tab PO DAILY 02/26/16 Reported Midodrine Hcl 2.5 Mg Tab 1 Tab PO TID 02/26/16 Reported Vitamin B-12 (Cyanocobalamin) 500 Mcg Tab 1,000 Mcg PO QAM 12/20/15 Reported Zocor (Simvastatin) 20 Mg Tab 20 Mg PO HS 12/20/15 Reported Riboflavin 400 Mg Tab 1 Tab PO QAM 12/01/15 Reported Physical Physical Exam Vital Signs: Date Time Temp Pulse Resp B/P (MAP) Pulse Ox O2 Delivery O2 Flow Rate FiO2 04/14/17 15:38 36.9 98 20 134/83 (100) 98 Nasal Cannula 04/14/17 13:15 97 04/14/17 12:38 36.8 106 22 111/71 (84) 92 Nasal Cannula 2.0 04/14/17 11:19 101 18 94 Nasal Cannula 3.0 04/14/17 08:37 37.5 104 22 136/81 (99) 93 Nasal Cannula 2.0 04/14/17 07:30 95 18 95 Nasal Cannula 3.0 04/14/17 04:00 Nasal Cannula 2.0 04/14/17 03:48 37.2 102 20 160/85 (110) 95 Nasal Cannula 3.0 04/14/17 00:00 Nasal Cannula 2.0 04/13/17 23:35 36.7 103 18 135/77 (96) 97 Nasal Cannula 3.0 04/13/17 20:00 Nasal Cannula 2.0 04/13/17 19:54 36.5 104 22 134/81 (98) 93 Nasal Cannula 3.0 04/13/17 19:23 80 18 94 Nasal Cannula 3.0 04/13/17 16:28 99 Nasal Cannula 2.0 04/13/17 16:24 99 Nasal Cannula 2.0 General Appearance: mild distress Head: NORMOCEPHALIC, ATRAUMATIC Eyes: other (periorbital edema) ENT: NORMAL EAR EXAM, NORMAL NASAL EXAM, NORMAL MOUTH EXAM, NORMAL THROAT EXAM Neck: NORMAL RANGE OF MOTION, NO TENDERNESS, TRACHEA MIDLINE, NO STRIDOR Respiratory: other (decreased breath sounds mild rhonchi appreciated in the left hemithorax greater than right) Cardiovasular: REGULAR RATE/RHYTHM, NORMAL S1S2, NO M/G/R, NO MURMUR, NO GALLOP Abdomen: NON TENDER, NORMAL BOWEL SOUNDS, NO REBOUND, NO MASSES, NO GUARDING, other (mild distended edema usually) Genitourinary - Female: EXTERNAL GENITALIA NORMAL Back: NORMAL INSPECTION, NO MIDLINE TENDERNESS, NO CVA TENDERNESS Upper Extremities: edema, other Lower Extremities: edema Edema: Bilateral UE (1+), Bilateral LE (2+) Pulses: carotid (R) (2+), carotid (L) (2+), posterior tibial (R), posterior tibial (L) (2+) Neuro: ALERT, ORIENTED x 3, NORMAL MOTOR EXAM Reflexes: biceps (R) (1+), bicpes (L) (1+), achilles (R) (1+), achilles (L) (1+ ) Babinski Testing: right (downgoing), left (downgoing) Psychiatric: flat affect, depressed Diagnostics Labs Results Past 24 Hours Test 04/13/17 16:14 04/14/17 06:23 04/14/17 08:13 04/14/17 15:09 Range/Units White Blood Count 11.67 11.56 4.8-10.8 K/uL Red Blood Count 3.77 3.81 4.2-5.4 M/uL Hemoglobin 12.1 12.0 12.0-16.0 g/dL Hematocrit 36.0 37.2 37-47 % Mean Corpuscular Volume 95.5 97.6 80-100 fL Mean Corpuscular Hemoglobin 32.1 31.5 25-34 pg Mean Corpuscular Hemoglobin Concent 33.6 32.3 32-36 g/dl Platelet Count 175 165 130-400 K/uL Mean Platelet Volume 9.9 9.9 7.4-10.4 fL Neutrophils (%) (Auto) 70.6 % Lymphocytes (%) (Auto) 14.7 % Monocytes (%) (Auto) 8.7 % Eosinophils (%) (Auto) 0.4 % Basophils (%) (Auto) 0.2 % Neutrophils # (Auto) 8.25 1.4-6.5 K/uL Lymphocytes # (Auto) 1.71 1.2-3.4 K/uL Monocytes # (Auto) 1.01 0.11-0.59 K/uL Eosinophils # (Auto) 0.05 0-0.5 K/uL Basophils # (Auto) 0.02 0-0.2 K/uL RDW Standard Deviation 58.8 61.8 36.4-46.3 fL RDW Coefficient of Variation 16.8 17.3 11.5-14.5 % Immature Granulocyte % (Auto) 5.4 % Immature Granulocyte # (Auto) 0.63 0.00-0.02 K/uL Nucleated RBC Absolute Count (auto) 0.02 0.03 0-0 K/uL Nucleated Red Blood Cells % 0.2 0.2 % Tear Drop Cells OCCASIONAL D-Dimer 340 0-500 ug/L FEU Sodium Level 138 140 136-145 mmol/L Potassium Level 3.5 3.6 3.5-5.1 mmol/L Chloride Level 96 95 98-107 mmol/L Carbon Dioxide Level 32 36 21-32 mmol/L Anion Gap 10.0 9.0 3-11 mmol/L Blood Urea Nitrogen 32 30 7-18 mg/dl Creatinine 1.20 1.30 0.60-1.20 mg/dl Est Creatinine Clear Calc Drug Dose 41.8 38.5 ml/min Estimated GFR () 49.4 44.9 Estimated GFR (Non- 42.7 38.7 BUN/Creatinine Ratio 26.9 23.2 10-20 Random Glucose 151 119 70-99 mg/dl Calcium Level 7.9 7.8 8.5-10.1 mg/dl Total Bilirubin 0.5 0.7 0.2-1 mg/dl Aspartate Amino Transf (AST/SGOT) 19 18 15-37 U/L Alanine Aminotransferase (ALT/SGPT) 43 40 12-78 U/L Alkaline Phosphatase 64 62 45-117 U/L Troponin I < 0.015 0-0.045 ng/ml Pro-B-Type Natriuretic Peptide 171 0-1800 pg/ml Total Protein 6.6 6.4 6.4-8.2 gm/dl Albumin 3.2 3.1 3.4-5.0 gm/dl Globulin 3.4 3.3 2.5-4.0 gm/dl Albumin/Globulin Ratio 0.9 0.9 0.9-2 Neutrophils % (Manual) 82.3 % Lymphocytes % (Manual) 8.8 % Monocytes % (Manual) 2.7 % Eosinophils % (Manual) 0.9 % Basophils % (Manual) 0.9 % Myelocytes % 4.4 % Neutrophils # (Manual) 9.51 1.4-6.5 K/uL Total Absolute Neutrophils 9.51 1.4-6.5 K/uL Lymphocytes # (Manual) 1.02 1.2-3.4 K/uL Total Absolute Lymphocytes 1.02 1.2-3.4 K/uL Monocytes # (Manual) 0.31 0.11-0.59 K/uL Eosinophils # (Manual) 0.10 0-0.5 K/uL Basophils # (Manual) 0.10 0-0.2 K/uL Myelocytes # 0.51 0-0 K/uL Hypogranular Neutrophils 1+ Lactic Acid Level 2.5 0.4-2.0 mmol/L Phosphorus Level 3.9 2.5-4.9 mg/dl Magnesium Level 2.1 1.8-2.4 mg/dl C-Reactive Protein 2.90 0-0.29 mg/dl Procalcitonin 0.11 0-0.5 ng/ml Arterial Blood pH 7.46 7.35-7.45 Arterial Blood Partial Pressure CO2 42 35-46 mmHg Arterial Blood Partial Pressure O2 87 80-95 mm/Hg Arterial Blood HCO3 29 19-24 mmol/L Arterial Blood Oxygen Saturation 96.9 90-95 % Arterial Blood Base Excess 5.0 -9-1.8 mEq/L Arterial Blood Gas Delivery 2 LITERS John Test POS POS Microbiology Results 04/14/17 Gram Stain, Barbra Batch Pending 04/14/17 Sputum Culture, Barbra Batch Pending Diagnostic Radiology CT Thorax compared to 01/14/17 CAT Chest Continued right pleural effusion with associated atelectasis Bilateral lower lobe, Lingular, RML opacifications suggestive of atelectasis EKG Interpretation: NORMAL EKG Impression Assessment and Plan 82-year-old Female with progressive dyspnea on exertion admitted for respiratory insufficiency/hypoxemia: #1 Hypoxemia: The etiology of this patient's hypoxemia is unknown at this time issues had normal pulmonary function test less than a year ago: No acute changes on her recent his chest is but her ABG shows today and a gradient of 100. The etiologies of an enlarging Aa gradient R: V/Q mismatch, diffusion abnormality, or shunt physiology. The patient's previous pulmonary function tests show mild diffusion abnormality after being corrected for alveolar volume at 78%. At this time would like to move forward with V/Q mismatch and possible bolus study as well as bedside spirometry for further evaluation. #2 Global Edema: The patient's underlying global edema is also associated and seems to be progressing with her current hypoxemia. This time I'll send off for prealbumin, free T4, T3, folic acid, reticulocyte count, a.m. cortisol level is and IgM levels. #3 Pneumonia: Suggest continue antibiotics at this time but I will switch her to Zosyn that she has a history of bronchoscopic and microbiologic findings suggesting aspiration. Pro-calcitonin levels within normal limits and her CT does not show any signs of U infiltrative process. We'll also repeat her CRP on a daily basis which may help us guide the discontinuation of her antibiotics has been shown in ICU studies.
[2017-04-14] MEDS ORDERED: PIPERACILL/TAZOBAC IV 4.5 GM in DEXTROSE 5% 100ML 100 ML IV ONE (16:45)
--- NOTE | 2017-04-14 18:15 | ECHOCARDIOGRAM REPORT ---
*NOTICE TO RECEIVING [employer]Y This information is strictly Confidential and protected under [place] law. [place] law prohibits you from making any further disclosure of this information unless further disclosure is expressly permitted by the written consent of the person to whom it pertains or is authorized by law. A general authorization for the release of medical or other information is not sufficient for this purpose. Hospital accepts no responsibility if the information is made available to any other person, INCLUDING THE PATIENT. Interpretation Summary * Name: DONELL SHANE Study Date: 04/14/2017 03:33 PM BP: 160/85 mmHg * Patient Location: C.2T\S\E218\S\1 HR: 99 * : 1935 (M/d/yyy) Gender: Female Height: 62 in * Age: 82 yrs Ethnicity: CA Weight: 224 lb * Ordering Physician: Ambreen Cid * Referring Physician: Jaun See PA-C * Performed By: Bao Salmeron RCS * * Reason For Study: CHF * BSA: 2.0 m2 * -- Conclusions -- * 1. Severely technically limited. * 2. Grossly normal LV size and function. Cannot rule out regional walll motion abnormalities. * 3. RV not well visualized but appears grossly normal. * 4. No apparent significant valvular pathology. * 5. Compared with prior study on 11/30/2016: No significant changes. Procedure Details * Left Ventricle The left ventricle is grossly normal size. There is normal left ventricular wall thickness. Ejection Fraction = 60-65%. * Right Ventricle The right ventricle is not well visualized. * Atria The left atrium is not well visualized. Right atrium not well visualized. * Mitral Valve The mitral valve is not well visualized. Significant mitral regurgitation is absent. * Aortic Valve The aortic valve is not well visualized. No hemodynamically significant valvular aortic stenosis. * Great Vessels The aortic root and proximal ascending aorta are normal sized. * Pericardium/Pleural There is no pericardial effusion. * * MMode 2D Measurements and Calculations * IVSd 0.95 cm * * LVIDd 5.1 cm * LVIDs 2.7 cm * LVPWd 1.3 cm * * IVS/LVPW 0.74 * FS 46.8 % * EDV(Teich) 123.9 ml * ESV(Teich) 27.4 ml * EF(Teich) 77.9 % * * EDV(cubed) 132.8 ml * ESV(cubed) 20.0 ml * EF(cubed) 84.9 % * * LV mass(C)d 217.3 grams * LV mass(C)dI 108.4 grams/m\S\2 * * SV(Teich) 96.5 ml * SI(Teich) 48.1 ml/m\S\2 * SV(cubed) 112.8 ml * SI(cubed) 56.2 ml/m\S\2 * * LVAd ap4 21.0 cm\S\2 * LVLd ap4 7.4 cm * EDV(MOD-sp4) 48.4 ml * EDV(sp4-el) 50.8 ml * LVAs ap4 10.4 cm\S\2 * LVLs ap4 5.8 cm * ESV(MOD-sp4) 16.0 ml * ESV(sp4-el) 15.7 ml * EF(MOD-sp4) 66.9 % * EF(sp4-el) 69.2 % * * LVAd ap2 15.1 cm\S\2 * LVLd ap2 6.4 cm * EDV(MOD-sp2) 30.0 ml * EDV(sp2-el) 30.2 ml * LVAs ap2 7.6 cm\S\2 * LVLs ap2 4.7 cm * ESV(MOD-sp2) 11.1 ml * ESV(sp2-el) 10.3 ml * EF(MOD-sp2) 63.1 % * EF(sp2-el) 66.0 % * * LVLd %diff -15.67 % * EDV(MOD-bp) 41.1 ml * LVLs %diff -22.45 % * ESV(MOD-bp) 14.6 ml * EF(MOD-bp) 64.5 % * * SV(MOD-sp4) 32.4 ml * SI(MOD-sp4) 16.2 ml/m\S\2 * * SV(MOD-sp2) 18.9 ml * SI(MOD-sp2) 9.4 ml/m\S\2 * * SV(MOD-bp) 26.5 ml * SI(MOD-bp) 13.2 ml/m\S\2 * * SV(sp4-el) 35.2 ml * SI(sp4-el) 17.5 ml/m\S\2 * * SV(sp2-el) 20.0 ml * SI(sp2-el) 9.9 ml/m\S\2 * * * * * Doppler Measurements and Calculations * MV A max anson 99.4 cm/sec * * MV dec time 0.12 sec * * Ao V2 max 158.8 cm/sec * Ao max PG 10.1 mmHg * Ao max PG (full) -0.26 mmHg * * LV V1 max PG 10.3 mmHg * * LV V1 max 160.8 cm/sec * * * * *
--- NOTE | 2017-04-14 18:23 | Progress Note ---
Subjective Date of Service: Apr 14, 2017. ~8am Subjective Pt evaluation today including: conversation w/ patient, physical exam, chart review, lab review, review of inpatient medication list feeling about the same notes that she wasn't really feeling worse than normal just not getting better orthopnea UMANA edema sob in general no f/c/s no purulent sputum Problem List Medical Problems: (1) Cervical strain Status: Acute (2) Fall Status: Acute (3) Head injury Status: Acute (4) Head injury Status: Acute (5) Hip pain Status: Acute (6) Hypoxia Status: Acute (7) Hypoxia Status: Acute (8) Lower extremity edema Status: Acute (9) Pneumonia Status: Acute (10) Reactive airway disease Status: Acute (11) Sepsis Status: Acute (12) Syncope Status: Acute (13) Traumatic compression fracture of third thoracic vertebra Status: Acute Review of Systems ros otherwise negative except for as above Objective Vital Signs Date Time Temp Pulse Resp B/P (MAP) Pulse Ox O2 Delivery O2 Flow Rate FiO2 04/14/17 16:05 94 18 98 Nasal Cannula 2.0 04/14/17 15:38 36.9 98 20 134/83 (100) 98 Nasal Cannula 04/14/17 13:15 97 04/14/17 12:38 36.8 106 22 111/71 (84) 92 Nasal Cannula 2.0 04/14/17 11:19 101 18 94 Nasal Cannula 3.0 04/14/17 08:37 37.5 104 22 136/81 (99) 93 Nasal Cannula 2.0 04/14/17 07:30 95 18 95 Nasal Cannula 3.0 04/14/17 04:00 Nasal Cannula 2.0 04/14/17 03:48 37.2 102 20 160/85 (110) 95 Nasal Cannula 3.0 04/14/17 00:00 Nasal Cannula 2.0 04/13/17 23:35 36.7 103 18 135/77 (96) 97 Nasal Cannula 3.0 04/13/17 20:00 Nasal Cannula 2.0 04/13/17 19:54 36.5 104 22 134/81 (98) 93 Nasal Cannula 3.0 04/13/17 19:23 80 18 94 Nasal Cannula 3.0 Physical Exam General Appearance: no apparent distress Eyes: EOMI ENT: hearing grossly normal Neck: trachea midline Respiratory/Chest: no respiratory distress, no accessory muscle use Extremities: normal range of motion Neurologic/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: 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 billing 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 II-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 nml as tested, alert, normal mood/affect Skin: normal color, warm/dry Laboratory Results Last 24 Hours Test 04/14/17 06:23 04/14/17 08:13 04/14/17 15:09 White Blood Count 11.56 K/uL Red Blood Count 3.81 M/uL Hemoglobin 12.0 g/dL Hematocrit 37.2 % Mean Corpuscular Volume 97.6 fL Mean Corpuscular Hemoglobin 31.5 pg Mean Corpuscular Hemoglobin Concent 32.3 g/dl Platelet Count 165 K/uL Mean Platelet Volume 9.9 fL RDW Standard Deviation 61.8 fL RDW Coefficient of Variation 17.3 % Nucleated RBC Absolute Count (auto) 0.03 K/uL Neutrophils % (Manual) 82.3 % Lymphocytes % (Manual) 8.8 % Monocytes % (Manual) 2.7 % Eosinophils % (Manual) 0.9 % Basophils % (Manual) 0.9 % Myelocytes % 4.4 % Nucleated Red Blood Cells % 0.2 % Neutrophils # (Manual) 9.51 K/uL Total Absolute Neutrophils 9.51 K/uL Lymphocytes # (Manual) 1.02 K/uL Total Absolute Lymphocytes 1.02 K/uL Monocytes # (Manual) 0.31 K/uL Eosinophils # (Manual) 0.10 K/uL Basophils # (Manual) 0.10 K/uL Myelocytes # 0.51 K/uL Hypogranular Neutrophils 1+ Sodium Level 140 mmol/L Potassium Level 3.6 mmol/L Chloride Level 95 mmol/L Carbon Dioxide Level 36 mmol/L Anion Gap 9.0 mmol/L Blood Urea Nitrogen 30 mg/dl Creatinine 1.30 mg/dl Est Creatinine Clear Calc Drug Dose 38.5 ml/min Estimated GFR () 44.9 Estimated GFR (Non- 38.7 BUN/Creatinine Ratio 23.2 Random Glucose 119 mg/dl Lactic Acid Level 2.5 mmol/L Calcium Level 7.8 mg/dl Phosphorus Level 3.9 mg/dl Magnesium Level 2.1 mg/dl Total Bilirubin 0.7 mg/dl Aspartate Amino Transf (AST/SGOT) 18 U/L Alanine Aminotransferase (ALT/SGPT) 40 U/L Alkaline Phosphatase 62 U/L Total Protein 6.4 gm/dl Albumin 3.1 gm/dl Globulin 3.3 gm/dl Albumin/Globulin Ratio 0.9 C-Reactive Protein 2.90 mg/dl Procalcitonin 0.11 ng/ml Arterial Blood pH 7.46 Arterial Blood Partial Pressure CO2 42 mmHg Arterial Blood Partial Pressure O2 87 mm/Hg Arterial Blood HCO3 29 mmol/L Arterial Blood Oxygen Saturation 96.9 % Arterial Blood Base Excess 5.0 mEq/L Arterial Blood Gas Delivery 2 LITERS John Test POS Assessment and Plan hypoxia/SOB/UMANA/CHF -concern on R sided CHF vs other -trial of bipap HS -await echo - possibly trial of PDE -DVT proph - heparin SQ
[2017-04-14] MEDS: LORAZEPAM 0.5 MG TAB PO SCH (20:07)
[2017-04-14] MEDS: SIMVASTATIN 20 MG TAB PO SCH (20:08)
[2017-04-14] MEDS: PIPERACILL/TAZOBAC IV 4.5 GM in DEXTROSE 5% 100ML 100 ML IV SCH (22:00)
[2017-04-15] VITALS (9 sets, daily range): BP systolic 123–152; BP diastolic 69–83; PULSE 81–96; TEMP 36.5–36.8; O2SAT 91–98
[2017-04-15] MEDS: ALBUT/IPRATROP 3MG/0.5MG NEB 3 ML VIAL INH SCH ×4 (02:00→19:24)
[2017-04-15] MEDS: HEPARIN SOD 5000 UNIT/0.5 ML CARP SQ SCH ×3 (06:00→20:09)
[2017-04-15] MEDS: PIPERACILL/TAZOBAC IV 4.5 GM in DEXTROSE 5% 100ML 100 ML IV SCH ×3 (06:34→22:00)
[2017-04-15] MEDS: LEVOTHYROXINE 88 MCG TAB PO SCH (06:34)
[2017-04-15 08:10] LABS: HEMATOCRIT 36.2 % (37-47); MEAN CELL VOLUME 97.1 fL (80-100); MEAN CORPUSCULAR HEMOGLOBIN 30.8 pg (25-34); MEAN CORPUSCULAR HGB CONC 31.8 g/dl (32-36); PLATELET COUNT 166 K/uL (130-400); RED BLOOD COUNT 3.73 M/uL (4.2-5.4); WHITE BLOOD COUNT 9.07 K/uL (4.8-10.8)
[2017-04-15 08:36] LABS: BUN/CREATININE RATIO 21.5 (10-20); CALCIUM 7.9 mg/dl (8.5-10.1); CREATININE 1.3 mg/dl (0.60-1.20); POTASSIUM 3.1 mmol/L (3.5-5.1)
[2017-04-15 08:47] LABS: PREALBUMIN 44.6 mg/dl (20-40); THYROID STIMULATING HORMONE 0.981 uIu/ml (0.300-4.500)
[2017-04-15] MEDS: FUROSEMIDE INJ 20 MG in SYRINGE 0 ML IV SCH ×2 (09:27→20:08)
[2017-04-15] MEDS: LACTOBACILLUS ACIDOPHILUS 1 GM PACK PO SCH ×3 (09:27→17:47)
[2017-04-15] MEDS: CYANOCOBALAMIN 500 MCG TAB (VIT B-12) PO SCH (09:28)
[2017-04-15] MEDS: CITALOPRAM 20 MG TAB PO SCH (09:28)
[2017-04-15] MEDS: MIDODRINE 2.5 MG TAB PO SCH ×3 (09:28→17:47)
[2017-04-15] MEDS: DICLOFENAC SOD 1% GEL 100 GM TUBE EXT SCH ×4 (09:28→20:07)
[2017-04-15] MEDS: TIOTROPIUM BROMIDE 5 PUFF/90 MCG INH INH SCH (09:29)
[2017-04-15] MEDS: GABAPENTIN 300 MG CAP PO SCH ×2 (09:29→20:08)
[2017-04-15] MEDS: TRAMADOL HCL 50 MG TAB PO SCH ×3 (09:35→20:07)
--- NOTE | 2017-04-15 09:45 | Progress Note ---
Subjective Date of Service: Apr 15, 2017. Subjective Pt evaluation today including: conversation w/ patient, physical exam, chart review, lab review, review of inpatient medication list feeling about the same. no better but not really worse. swelling about the same, breathing about the same Problem List Medical Problems: (1) Cervical strain Status: Acute (2) Fall Status: Acute (3) Head injury Status: Acute (4) Head injury Status: Acute (5) Hip pain Status: Acute (6) Hypoxia Status: Acute (7) Hypoxia Status: Acute (8) Lower extremity edema Status: Acute (9) Pneumonia Status: Acute (10) Reactive airway disease Status: Acute (11) Sepsis Status: Acute (12) Syncope Status: Acute (13) Traumatic compression fracture of third thoracic vertebra Status: Acute Review of Systems all other ROS otherwise negative except for as above Objective Vital Signs Date Time Temp Pulse Resp B/P (MAP) Pulse Ox O2 Delivery O2 Flow Rate FiO2 04/15/17 07:36 36.5 88 20 149/83 (105) 96 Nasal Cannula 2.0 04/15/17 07:05 86 18 91 Nasal Cannula 2.0 04/15/17 04:00 Nasal Cannula 2.0 04/15/17 03:25 36.5 81 22 152/78 (102) 98 Nasal Cannula 2.0 04/15/17 00:01 Nasal Cannula 2.0 04/14/17 23:27 36.8 92 22 149/89 (109) 96 Nasal Cannula 2.0 04/14/17 20:46 37.0 92 18 151/87 (108) 94 Nasal Cannula 04/14/17 20:00 Nasal Cannula 2.0 04/14/17 18:59 88 18 98 Nasal Cannula 2.0 04/14/17 16:05 94 18 98 Nasal Cannula 2.0 04/14/17 16:05 Nasal Cannula 2.0 04/14/17 15:38 36.9 98 20 134/83 (100) 98 Nasal Cannula 04/14/17 13:15 97 04/14/17 12:38 36.8 106 22 111/71 (84) 92 Nasal Cannula 2.0 04/14/17 12:05 Nasal Cannula 2.0 04/14/17 11:19 101 18 94 Nasal Cannula 3.0 Physical Exam General Appearance: no apparent distress Eyes: EOMI ENT: hearing grossly normal Neck: trachea midline Respiratory/Chest: no respiratory distress, no accessory muscle use Extremities: normal range of motion Neurologic/Psychiatric: aquaculturist II-XII nml as tested, alert Skin: normal color, warm/dry Laboratory Results Last 24 Hours Test 04/14/17 15:09 04/15/17 07:49 Arterial Blood pH 7.46 Arterial Blood Partial Pressure CO2 42 mmHg Arterial Blood Partial Pressure O2 87 mm/Hg Arterial Blood HCO3 29 mmol/L Arterial Blood Oxygen Saturation 96.9 % Arterial Blood Base Excess 5.0 mEq/L Arterial Blood Gas Delivery 2 LITERS John Test POS White Blood Count 9.07 K/uL Red Blood Count 3.73 M/uL Hemoglobin 11.5 g/dL Hematocrit 36.2 % Mean Corpuscular Volume 97.1 fL Mean Corpuscular Hemoglobin 30.8 pg Mean Corpuscular Hemoglobin Concent 31.8 g/dl RDW Standard Deviation 60.5 fL RDW Coefficient of Variation 17.0 % Platelet Count 166 K/uL Mean Platelet Volume 10.0 fL Nucleated RBC Absolute Count (auto) 0.02 K/uL Nucleated Red Blood Cells % 0.2 % Absolute Reticulocyte Count 0.07 10^6/uL Percent Reticulocyte Count 1.9 % Sodium Level 137 mmol/L Potassium Level 3.1 mmol/L Chloride Level 93 mmol/L Carbon Dioxide Level 39 mmol/L Anion Gap 5.0 mmol/L Blood Urea Nitrogen 28 mg/dl Creatinine 1.30 mg/dl Est Creatinine Clear Calc Drug Dose 38.0 ml/min Estimated GFR () 44.9 Estimated GFR (Non- 38.7 BUN/Creatinine Ratio 21.5 Random Glucose 127 mg/dl Calcium Level 7.9 mg/dl Prealbumin 44.6 mg/dl Folate 22.85 ng/mL Thyroid Stimulating Hormone (TSH) 0.981 uIu/ml Free Thyroxine 0.79 ng/dl Free Triiodothyronine 1.82 pg/ml Cortisol AM Sample 5.44 mcg/dl Assessment and Plan hypoxia/SOB/UMANA/CHF -concern on R sided CHF vs other -trial of bipap HS -echo poor imaging - ?RHC -PFTs -DVT proph - heparin SQ
[2017-04-15] MEDS ORDERED: POTASSIUM CHLORIDE 10 MEQ TABCR PO ONE (10:00)
--- NOTE | 2017-04-15 14:04 | Pulmonology Progress Note ---
Pulmonary Progress Note Date of Service Apr 15, 2017. Attending Dr. Khalil Subjective Patient continues to note shortness of breath/dyspnea at rest LABS: WBC: 9K PLT: 166K BUN/Cr: 15/10. CRP: 2.90H Pro-BNP: 171 Pre-Albumin: 44.6H Tot Pro: 6.4 ALB: 3.1 TBili: 0.5 AST: 19 ALT: 43 Folate: 22.85H TSH: 0.981wnl Free T4: 0.79L Free T3: 1.82L Am Cortisol: 5.44wnl Procalcitonin: 0.11wnl AB.46/42/87/29 (2L) Micro: Expectorated sputum 04/06/2017: Canceled MRSA DNA nasal swab: Positive CT Thorax (04/15/17) compared to 01/14/17 CAT Chest Continued right pleural effusion with associated atelectasis Bilateral lower lobe, Lingular, RML opacifications suggestive of atelectasis EKG(04/15/17: 0945)NSR, rate-79, low voltage, no signs of acute ischemic event, I do not noted any acute changes from EKG 04/14/2017 VS: I/Os: Total: -1.3L 24hrs: -3400cc SaO2: 91-98% FiO2: 2L RR: 18-22 GEN: RESP: CARD: ABD: Medications #1 Zosyn #2 Spiriva one puff daily #3 prednisone 40 mg #4 Lasix 20 mg IV daily #5 Synthroid 88 g daily #6 heparin subcutaneous 5000 units every 8 hours #7 Midodrine 2.5 mg 3 times a day #8 DuoNeb 4 times daily Objective Patient notably fatigued but no signs of increased work of breathing during our conversation. She did not have accessory muscle use no restricted. LABS: WBC: 9K PLT: 166K BUN/Cr: 15/10. CRP: 2.90H Pro-BNP: 171 Pre-Albumin: 44.6H Tot Pro: 6.4 ALB: 3.1 TBili: 0.5 AST: 19 ALT: 43 Folate: 22.85H TSH: 0.981wnl Free T4: 0.79L Free T3: 1.82L Am Cortisol: 5.44wnl Procalcitonin: 0.11wnl AB.46/42// (2L) Micro: Expectorated sputum 04/06/2017: Canceled MRSA DNA nasal swab: Positive CT Thorax (04/15/17) compared to 01/14/17 CAT Chest Continued right pleural effusion with associated atelectasis Bilateral lower lobe, Lingular, RML opacifications suggestive of atelectasis EKG(04/15/17: 0945)NSR, rate-79, low voltage, no signs of acute ischemic event, I do not noted any acute changes from EKG 04/14/2017 VS: I/Os: Total: -1.3L 24hrs: -3400cc SaO2: 91-98% FiO2: 2L GEN: RR: 18-22 GEN: Fatigue. Orientated 3 RESP: Mild expiratory wheezing noted, decreased breath sounds at the bases CARD: S1-S2 distant heart sounds ABD: No rebound positive bowel sounds no organomegaly noted Medications #1 Zosyn #2 Spiriva one puff daily #3 prednisone 40 mg #4 Lasix 20 mg IV daily #5 Synthroid 88 g daily #6 heparin subcutaneous 5000 units every 8 hours #7 Midodrine 2.5 mg 3 times a day #8 DuoNeb 4 times daily Assessment & Plan 82-year-old female with progressive dyspnea/hypoxia admitted with acute on chronic respiratory insufficiency: #1 hypoxia: At this time the serum studies sent off show no definitive etiology for her fatigue, global edema or hypoxia. I will ask the respiratory therapy team to perform bedside spirometry with peak inspiratory and expiratory flow evaluation as well as maximum minute ventilation for evaluation the patient's overall spirometry and pulmonary muscle function. This patient has been notably declining like to obtain the bedside spirometry and muscle function evaluations but if they are within normal limits I then feel it moving to V/Q scan as well as right heart catheterization is appropriate. #2 pneumonia: Patient is answering signs of improvement will continue current antibiotic course. Data Medications: Current Inpatient Medications Medications (Trade) Dose Ordered Sig/Natasha Route Start Time Stop Time Status Last Admin Dose Admin Acetaminophen (Tylenol Tab) 650 mg Q4H PRN PO 04/13/17 15:30 05/13/17 15:29 Al Hydrox/Mg Hydrox/Simethicone (Maalox Max Susp) 15 ml Q4H PRN PO 04/13/17 15:30 05/13/17 15:29 Magnesium Hydroxide (Milk Of Magnesia Susp) 30 ml Q12H PRN PO 04/13/17 15:30 05/13/17 15:29 Ondansetron HCl (Zofran Inj) 4 mg Q6H PRN IV 04/13/17 15:30 05/13/17 15:29 Nitroglycerin (Nitrostat Tab) 0.4 mg UD PRN SL 04/13/17 15:30 05/13/17 15:29 Polyethylene (Miralax Powder Packet) 17 gm DAILY PRN PO 04/13/17 15:30 05/13/17 15:29 Citalopram Hydrobromide (celeXA TAB) 30 mg QAM PO 04/14/17 09:00 05/14/17 08:59 04/15/17 09:28 30 MG Cyanocobalamin (Vitamin B-12 Tab) 1,000 mcg QAM PO 04/14/17 09:00 05/14/17 08:59 04/15/17 09:28 1,000 MCG Diclofenac Sodium (Voltaren 1% Top Gel) 1 appln QID EXT 04/13/17 17:00 05/13/17 16:59 04/15/17 09:28 1 APPLN Gabapentin (Neurontin Cap) 300 mg BID PO 04/13/17 21:00 05/13/17 20:59 04/15/17 09:29 300 MG Levothyroxine Sodium (Synthroid Tab) 88 mcg DAILYBB PO 04/14/17 06:00 05/14/17 05:59 04/15/17 06:34 88 MCG Lorazepam (Ativan Tab) 0.5 mg HS PO 04/13/17 21:00 05/13/17 20:59 04/14/17 20:07 0.5 MG Midodrine (Proamatine Tab) 2.5 mg TID@0800,1200,1800 PO 04/13/17 21:00 05/13/17 20:59 04/15/17 12:37 2.5 MG Ropinirole HCl (Requip Tab) 0.5 mg HS PRN PO 04/13/17 16:15 05/13/17 16:14 04/14/17 08:41 0.5 MG Simvastatin (Zocor Tab) 20 mg HS PO 04/13/17 21:00 05/13/17 20:59 04/14/17 20:08 20 MG Tiotropium [place] (Spiriva Handihaler Inhaler) 1 puff DAILY INH 04/14/17 09:00 05/14/17 08:59 04/15/17 09:29 1 PUFF Tramadol HCl (Ultram Tab) 50 mg TID PO 04/13/17 21:00 05/13/17 20:59 04/15/17 09:35 50 MG Miscellaneous Information (Order Awaiting Action) 1 ea QS N/A 04/14/17 00:00 05/14/17 00:00 Albuterol/ Ipratropium (Duoneb) 3 ml QIDR INH 04/13/17 20:00 05/13/17 19:59 04/15/17 07:05 3 ML Heparin Sodium (Porcine) (Heparin Sq 5000 Unit/0.5ml) 5,000 unit Q8 SQ 04/13/17 22:00 05/13/17 21:59 04/15/17 06:00 5,000 UNIT Prednisone (PredniSONE TAB) 40 mg DAILY PO 04/14/17 09:00 05/14/17 08:59 04/15/17 09:27 40 MG Furosemide 20 mg/ Syringe 2 ml @ 4 mls/min BID IV 04/14/17 09:00 05/14/17 08:59 04/15/17 09:27 4 MLS/MIN Lactobacillus Acidophilus (Lactinex Granules Pack) 1 gm TIDM PO 04/14/17 07:30 05/14/17 07:29 04/15/17 12:38 1 GM Piperacillin Sod/ Tazobactam Sod 4.5 gm/Dextrose 120 ml @ 30 mls/hr Q8H IV 04/14/17 22:00 04/21/17 21:59 04/15/17 06:34 30 MLS/HR Vital Signs: Date Time Temp Pulse Resp B/P (MAP) Pulse Ox O2 Delivery O2 Flow Rate FiO2 04/15/17 11:52 36.5 90 20 123/73 (90) 94 Nasal Cannula 2.0 04/15/17 07:36 36.5 88 20 149/83 (105) 96 Nasal Cannula 2.0 04/15/17 07:05 86 18 91 Nasal Cannula 2.0 04/15/17 04:00 Nasal Cannula 2.0 04/15/17 03:25 36.5 81 22 152/78 (102) 98 Nasal Cannula 2.0 04/15/17 00:01 Nasal Cannula 2.0 04/14/17 23:27 36.8 92 22 149/89 (109) 96 Nasal Cannula 2.0 04/14/17 20:46 37.0 92 18 151/87 (108) 94 Nasal Cannula 04/14/17 20:00 Nasal Cannula 2.0 04/14/17 18:59 88 18 98 Nasal Cannula 2.0 04/14/17 16:05 94 18 98 Nasal Cannula 2.0 04/14/17 16:05 Nasal Cannula 2.0 04/14/17 15:38 36.9 98 20 134/83 (100) 98 Nasal Cannula Laboratory Results: Last 24 Hours Test 04/14/17 15:09 04/15/17 07:49 Arterial Blood pH 7.46 Arterial Blood Partial Pressure CO2 42 mmHg Arterial Blood Partial Pressure O2 87 mm/Hg Arterial Blood HCO3 29 mmol/L Arterial Blood Oxygen Saturation 96.9 % Arterial Blood Base Excess 5.0 mEq/L Arterial Blood Gas Delivery 2 LITERS John Test POS White Blood Count 9.07 K/uL Red Blood Count 3.73 M/uL Hemoglobin 11.5 g/dL Hematocrit 36.2 % Mean Corpuscular Volume 97.1 fL Mean Corpuscular Hemoglobin 30.8 pg Mean Corpuscular Hemoglobin Concent 31.8 g/dl RDW Standard Deviation 60.5 fL RDW Coefficient of Variation 17.0 % Platelet Count 166 K/uL Mean Platelet Volume 10.0 fL Nucleated RBC Absolute Count (auto) 0.02 K/uL Nucleated Red Blood Cells % 0.2 % Absolute Reticulocyte Count 0.07 10^6/uL Percent Reticulocyte Count 1.9 % Sodium Level 137 mmol/L Potassium Level 3.1 mmol/L Chloride Level 93 mmol/L Carbon Dioxide Level 39 mmol/L Anion Gap 5.0 mmol/L Blood Urea Nitrogen 28 mg/dl Creatinine 1.30 mg/dl Est Creatinine Clear Calc Drug Dose 38.0 ml/min Estimated GFR () 44.9 Estimated GFR (Non- 38.7 BUN/Creatinine Ratio 21.5 Random Glucose 127 mg/dl Calcium Level 7.9 mg/dl Prealbumin 44.6 mg/dl Folate 22.85 ng/mL Thyroid Stimulating Hormone (TSH) 0.981 uIu/ml Free Thyroxine 0.79 ng/dl Free Triiodothyronine 1.82 pg/ml Cortisol AM Sample 5.44 mcg/dl
[2017-04-15] MEDS: LORAZEPAM 0.5 MG TAB PO SCH (20:07)
[2017-04-15] MEDS: SIMVASTATIN 20 MG TAB PO SCH (20:08)
[2017-04-15] MEDS: [UNRECOGNIZED DRUG - OTHER] XX SCH (21:00)
[2017-04-16] VITALS (10 sets, daily range): BP systolic 117–143; BP diastolic 71–82; PULSE 85–100; TEMP 36.5–37.2; O2SAT 93–98
[2017-04-16] MEDS: LEVOTHYROXINE 88 MCG TAB PO SCH (05:55)
[2017-04-16] MEDS: PIPERACILL/TAZOBAC IV 4.5 GM in DEXTROSE 5% 100ML 100 ML IV SCH ×3 (05:55→18:13)
[2017-04-16] MEDS: HEPARIN SOD 5000 UNIT/0.5 ML CARP SQ SCH ×3 (05:57→20:50)
[2017-04-16 05:58] LABS: HEMATOCRIT 36.1 % (37-47); MEAN CELL VOLUME 97.8 fL (80-100); MEAN CORPUSCULAR HEMOGLOBIN 31.7 pg (25-34); MEAN CORPUSCULAR HGB CONC 32.4 g/dl (32-36); MEAN PLATELET VOLUME 10.1 fL (7.4-10.4); PLATELET COUNT 167 K/uL (130-400); RED BLOOD COUNT 3.69 M/uL (4.2-5.4); WHITE BLOOD COUNT 9.24 K/uL (4.8-10.8)
[2017-04-16 06:56] LABS: BUN/CREATININE RATIO 21.9 (10-20); CALCIUM 7.8 mg/dl (8.5-10.1); CREATININE 1.3 mg/dl (0.60-1.20); POTASSIUM 3.8 mmol/L (3.5-5.1)
[2017-04-16] MEDS: ALBUT/IPRATROP 3MG/0.5MG NEB 3 ML VIAL INH SCH ×4 (07:27→20:21)
[2017-04-16] MEDS: MIDODRINE 2.5 MG TAB PO SCH ×3 (08:30→18:14)
[2017-04-16] MEDS: DICLOFENAC SOD 1% GEL 100 GM TUBE EXT SCH ×4 (08:30→20:51)
[2017-04-16] MEDS: GABAPENTIN 300 MG CAP PO SCH ×2 (08:30→20:51)
[2017-04-16] MEDS: LACTOBACILLUS ACIDOPHILUS 1 GM PACK PO SCH ×2 (08:30→12:25)
[2017-04-16] MEDS: FUROSEMIDE INJ 20 MG in SYRINGE 0 ML IV SCH ×2 (08:30→20:51)
[2017-04-16] MEDS: [UNRECOGNIZED DRUG - OTHER] XX SCH ×4 (08:30→20:30)
[2017-04-16] MEDS: TRAMADOL HCL 50 MG TAB PO SCH ×3 (08:30→20:54)
[2017-04-16] MEDS: TIOTROPIUM BROMIDE 5 PUFF/90 MCG INH INH SCH (08:30)
[2017-04-16] MEDS: CITALOPRAM 20 MG TAB PO SCH (08:30)
[2017-04-16] MEDS: CYANOCOBALAMIN 500 MCG TAB (VIT B-12) PO SCH (08:30)
--- NOTE | 2017-04-16 14:33 | Pulmonology Progress Note ---
Pulmonary Progress Note Date of Service Apr 16, 2017. Attending Dr. Khalil Subjective Patient notes continued dyspnea at rest as well as severe fatigue Objective The patient continues to have a shallow mildly tachypnea Respiratory cycle. LABS: WBC: 9K PLT: 167K BUN/Cr: 29/1.30 Micro: MRSA DNA nasal swab: Positive CT Thorax (04/15/17) compared to 01/14/17 CAT Chest Continued right pleural effusion with associated atelectasis Bilateral lower lobe, Lingular, RML opacifications suggestive of atelectasis VS: I/Os: Total: -3.2L 24hrs: -290cc SaO2: 95-98% FiO2: 2L RR: 18-22 GEN: Flat affect RESP: Decreased breath sounds globally CARD: S1 and S2 distant heart sounds but no murmurs rubs or gallops appreciated ABD: Positive bowel sounds soft nontender NIF: Per the respiratory notes the patient had 3 consecutive studies 22, 22, 18 Assessment & Plan 82-year-old female with progressive dyspnea/hypoxia admitted with acute on chronic respiratory insufficiency: #1 Respiratory: The patient continues to have respiratory insufficiency and associated hypoxemia. At this time I do believe we need to move forward with right heart catheterization for further evaluation of possible diastolic heart failure as well as shunt fraction evaluation. He also appears that the patient might be having muscular respiratory insufficiency as her NIF was only 22 at maximum. Respiratory therapist did believe this inappropriate effort. We were unable to get bedside spirometry, MEP or MVV. A combined history of diastolic dysfunctioning as well as neuromuscular dysfunction would sit with the patient' s clinical and medical workup. I will place a consult in for Dr. Michael Decker of the [facility] cardiology department for right heart catheterization /shunt fraction evaluation. Also believe this this is negative further evaluation with V/Q scan is warranted. #2 Pneumonia: Patient is answering signs of improvement will continue current antibiotic course. Data Medications: Current Inpatient Medications Medications (Trade) Dose Ordered Sig/Natasha Route Start Time Stop Time Status Last Admin Dose Admin Acetaminophen (Tylenol Tab) 650 mg Q4H PRN PO 04/13/17 15:30 05/13/17 15:29 Al Hydrox/Mg Hydrox/Simethicone (Maalox Max Susp) 15 ml Q4H PRN PO 04/13/17 15:30 05/13/17 15:29 Magnesium Hydroxide (Milk Of Magnesia Susp) 30 ml Q12H PRN PO 04/13/17 15:30 05/13/17 15:29 Ondansetron HCl (Zofran Inj) 4 mg Q6H PRN IV 04/13/17 15:30 05/13/17 15:29 Nitroglycerin (Nitrostat Tab) 0.4 mg UD PRN SL 04/13/17 15:30 05/13/17 15:29 Polyethylene (Miralax Powder Packet) 17 gm DAILY PRN PO 04/13/17 15:30 05/13/17 15:29 Citalopram Hydrobromide (celeXA TAB) 30 mg QAM PO 04/14/17 09:00 05/14/17 08:59 04/16/17 08:30 30 MG Cyanocobalamin (Vitamin B-12 Tab) 1,000 mcg QAM PO 04/14/17 09:00 05/14/17 08:59 04/16/17 08:30 1,000 MCG Diclofenac Sodium (Voltaren 1% Top Gel) 1 appln QID EXT 04/13/17 17:00 05/13/17 16:59 04/16/17 12:25 1 APPLN Gabapentin (Neurontin Cap) 300 mg BID PO 04/13/17 21:00 05/13/17 20:59 04/16/17 08:30 300 MG Levothyroxine Sodium (Synthroid Tab) 88 mcg DAILYBB PO 04/14/17 06:00 05/14/17 05:59 04/16/17 05:55 88 MCG Lorazepam (Ativan Tab) 0.5 mg HS PO 04/13/17 21:00 05/13/17 20:59 04/15/17 20:07 0.5 MG Midodrine (Proamatine Tab) 2.5 mg TID@0800,1200,1800 PO 04/13/17 21:00 05/13/17 20:59 04/16/17 12:25 2.5 MG Ropinirole HCl (Requip Tab) 0.5 mg HS PRN PO 04/13/17 16:15 05/13/17 16:14 04/14/17 08:41 0.5 MG Simvastatin (Zocor Tab) 20 mg HS PO 04/13/17 21:00 05/13/17 20:59 04/15/17 20:08 20 MG Tiotropium [place] (Spiriva Handihaler Inhaler) 1 puff DAILY INH 04/14/17 09:00 05/14/17 08:59 04/16/17 08:30 1 PUFF Tramadol HCl (Ultram Tab) 50 mg TID PO 04/13/17 21:00 05/13/17 20:59 04/16/17 08:30 50 MG Albuterol/ Ipratropium (Duoneb) 3 ml QIDR INH 04/13/17 20:00 05/13/17 19:59 04/16/17 11:22 3 ML Heparin Sodium (Porcine) (Heparin Sq 5000 Unit/0.5ml) 5,000 unit Q8 SQ 04/13/17 22:00 05/13/17 21:59 04/16/17 05:57 5,000 UNIT Prednisone (PredniSONE TAB) 40 mg DAILY PO 04/14/17 09:00 05/14/17 08:59 04/16/17 08:30 40 MG Furosemide 20 mg/ Syringe 2 ml @ 4 mls/min BID IV 04/14/17 09:00 05/14/17 08:59 04/16/17 08:30 4 MLS/MIN Lactobacillus Acidophilus (Lactinex Granules Pack) 1 gm TIDM PO 04/14/17 07:30 05/14/17 07:29 04/16/17 12:25 1 GM Piperacillin Sod/ Tazobactam Sod 4.5 gm/Dextrose 120 ml @ 30 mls/hr Q8H IV 04/14/17 22:00 04/21/17 21:59 04/16/17 05:55 30 MLS/HR Non-Formulary Medication (Non-Formulary Patient'S Own Med) 1 ea QID XX 04/15/17 21:00 05/15/17 20:59 04/16/17 12:33 1 EA I & O: 24-Hour Column 04/17/17 08:00 Intake Total 311 ml Output Total 550 ml Balance -239 ml Vital Signs: Date Time Temp Pulse Resp B/P (MAP) Pulse Ox O2 Delivery O2 Flow Rate FiO2 04/16/17 12:20 Nasal Cannula 2.0 04/16/17 11:35 36.7 92 20 121/72 (88) 97 Nasal Cannula 2.0 04/16/17 11:22 95 18 97 Nasal Cannula 2.0 04/16/17 08:30 Nasal Cannula 2.0 04/16/17 07:52 36.9 100 22 138/74 (95) 96 Nasal Cannula 2.0 04/16/17 07:27 85 18 98 Nasal Cannula 2.0 04/16/17 04:00 Nasal Cannula 2.0 04/16/17 02:46 36.5 88 18 131/76 (94) 95 CPAP 2.0 04/16/17 00:01 Nasal Cannula 2.0 04/15/17 23:24 36.8 90 21 149/80 (103) 97 Nasal Cannula 2.0 04/15/17 20:00 Nasal Cannula 2.0 04/15/17 19:24 88 18 98 Nasal Cannula 2.0 04/15/17 18:56 36.7 96 18 129/69 (89) 96 Nasal Cannula 2.0 04/15/17 16:00 Nasal Cannula 2.0 04/15/17 15:07 90 18 98 Nasal Cannula 2.0 04/15/17 15:06 36.7 87 20 124/71 (88) 98 Nasal Cannula 2.0 Laboratory Results: Last 24 Hours Test 04/16/17 05:30 White Blood Count 9.24 K/uL Red Blood Count 3.69 M/uL Hemoglobin 11.7 g/dL Hematocrit 36.1 % Mean Corpuscular Volume 97.8 fL Mean Corpuscular Hemoglobin 31.7 pg Mean Corpuscular Hemoglobin Concent 32.4 g/dl RDW Standard Deviation 60.5 fL RDW Coefficient of Variation 16.9 % Platelet Count 167 K/uL Mean Platelet Volume 10.1 fL Sodium Level 139 mmol/L Potassium Level 3.8 mmol/L Chloride Level 95 mmol/L Carbon Dioxide Level 37 mmol/L Anion Gap 7.0 mmol/L Blood Urea Nitrogen 29 mg/dl Creatinine 1.30 mg/dl Est Creatinine Clear Calc Drug Dose 38.0 ml/min Estimated GFR () 44.9 Estimated GFR (Non- 38.7 BUN/Creatinine Ratio 21.9 Random Glucose 187 mg/dl Calcium Level 7.8 mg/dl
[2017-04-16] MEDS ORDERED: PIPERACILL/TAZOBAC CONSULT ACTIVE PRN (14:45)
--- NOTE | 2017-04-16 16:39 | Progress Note ---
Subjective Date of Service: Apr 16, 2017. Subjective Pt evaluation today including: conversation w/ patient, physical exam, chart review, lab review, review of inpatient medication list feeling the same edema the same legs hurting hte same sob/umana/orthopnea the same no f/c/s Problem List Medical Problems: (1) Cervical strain Status: Acute (2) Fall Status: Acute (3) Head injury Status: Acute (4) Head injury Status: Acute (5) Hip pain Status: Acute (6) Hypoxia Status: Acute (7) Hypoxia Status: Acute (8) Lower extremity edema Status: Acute (9) Pneumonia Status: Acute (10) Reactive airway disease Status: Acute (11) Sepsis Status: Acute (12) Syncope Status: Acute (13) Traumatic compression fracture of third thoracic vertebra Status: Acute Review of Systems all other ROS otherwise negative except for as above Objective Vital Signs Date Time Temp Pulse Resp B/P (MAP) Pulse Ox O2 Delivery O2 Flow Rate FiO2 04/16/17 15:25 37.1 93 20 117/71 (86) 95 Nasal Cannula 3.0 04/16/17 15:20 98 18 95 Nasal Cannula 2.0 04/16/17 12:20 Nasal Cannula 2.0 04/16/17 11:35 36.7 92 20 121/72 (88) 97 Nasal Cannula 2.0 04/16/17 11:22 95 18 97 Nasal Cannula 2.0 04/16/17 08:30 Nasal Cannula 2.0 04/16/17 07:52 36.9 100 22 138/74 (95) 96 Nasal Cannula 2.0 04/16/17 07:27 85 18 98 Nasal Cannula 2.0 04/16/17 04:00 Nasal Cannula 2.0 04/16/17 02:46 36.5 88 18 131/76 (94) 95 CPAP 2.0 04/16/17 00:01 Nasal Cannula 2.0 04/15/17 23:24 36.8 90 21 149/80 (103) 97 Nasal Cannula 2.0 04/15/17 20:00 Nasal Cannula 2.0 04/15/17 19:24 88 18 98 Nasal Cannula 2.0 04/15/17 18:56 36.7 96 18 129/69 (89) 96 Nasal Cannula 2.0 Physical Exam General Appearance: no apparent distress Eyes: EOMI ENT: hearing grossly normal Neck: trachea midline Respiratory/Chest: no respiratory distress, no accessory muscle use Extremities: normal range of motion (weak), + pedal edema Neurologic/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 II-XII nml as tested, alert, normal mood/affect Skin: normal color, warm/dry Laboratory Results Last 24 Hours Test 04/16/17 05:30 White Blood Count 9.24 K/uL Red Blood Count 3.69 M/uL Hemoglobin 11.7 g/dL Hematocrit 36.1 % Mean Corpuscular Volume 97.8 fL Mean Corpuscular Hemoglobin 31.7 pg Mean Corpuscular Hemoglobin Concent 32.4 g/dl RDW Standard Deviation 60.5 fL RDW Coefficient of Variation 16.9 % Platelet Count 167 K/uL Mean Platelet Volume 10.1 fL Sodium Level 139 mmol/L Potassium Level 3.8 mmol/L Chloride Level 95 mmol/L Carbon Dioxide Level 37 mmol/L Anion Gap 7.0 mmol/L Blood Urea Nitrogen 29 mg/dl Creatinine 1.30 mg/dl Est Creatinine Clear Calc Drug Dose 38.0 ml/min Estimated GFR () 44.9 Estimated GFR (Non- 38.7 BUN/Creatinine Ratio 21.9 Random Glucose 187 mg/dl Calcium Level 7.8 mg/dl Assessment and Plan hypoxia/SOB/UMANA/CHF -concern on R sided CHF vs other - bedside spirometry per pulmonary while not the best effort can be c/w neuromuscular weakness (likely deconditioning as most likely culprit) -trial of bipap HS ongoing -echo poor imaging - RHC appears warranted by both myself and pulmonary - await further cardiology input -ongoing trial of lasix - not looking too volume contracted -DVT proph - heparin SQ -treat pneumonia as per pulmonary metabolic alkalosis -contraction alkalosis from lasix - but no significant rise in creatinine yet - OK to continue diuresis and follow
[2017-04-16] MEDS: LACTOBACILLUS ACIDOPHILUS (FLORANEX) TAB PO SCH (18:13)
[2017-04-16] MEDS: SIMVASTATIN 20 MG TAB PO SCH (20:52)
[2017-04-16] MEDS: LORAZEPAM 0.5 MG TAB PO SCH (20:54)
[2017-04-17] VITALS (19 sets, daily range): BP systolic 102–160; BP diastolic 68–89; PULSE 82–105; TEMP 36.7–37.2; O2SAT 92–99
[2017-04-17] MEDS: PIPERACILL/TAZOBAC IV 4.5 GM in DEXTROSE 5% 100ML 100 ML IV SCH ×2 (02:05→09:18)
[2017-04-17] MEDS: LEVOTHYROXINE 88 MCG TAB PO SCH (05:48)
[2017-04-17] MEDS: HEPARIN SOD 5000 UNIT/0.5 ML CARP SQ SCH ×3 (05:49→21:19)
[2017-04-17] MEDS: ALBUT/IPRATROP 3MG/0.5MG NEB 3 ML VIAL INH SCH ×5 (07:08→20:09)
[2017-04-17] MEDS: LACTOBACILLUS ACIDOPHILUS (FLORANEX) TAB PO SCH (07:30)
[2017-04-17] MEDS: MIDODRINE 2.5 MG TAB PO SCH ×3 (08:00→17:19)
[2017-04-17] MEDS: GABAPENTIN 300 MG CAP PO SCH ×2 (08:45→21:17)
[2017-04-17] MEDS: CITALOPRAM 20 MG TAB PO SCH (08:45)
[2017-04-17] MEDS: TRAMADOL HCL 50 MG TAB PO SCH ×3 (08:46→21:28)
[2017-04-17] MEDS: [UNRECOGNIZED DRUG - OTHER] XX SCH ×4 (08:46→21:17)
[2017-04-17] MEDS: CYANOCOBALAMIN 500 MCG TAB (VIT B-12) PO SCH (08:46)
--- NOTE | 2017-04-17 09:13 | CARDIOLOGY PROGRESS NOTE ---
DATE: 04/17/2017 TIME: 08:43 a.m. SUBJECTIVE: Ms. Philip was seen on Monday by Dr. Yuen, cardiology. She continues to feel short of breath with orthopnea. She states her breathing is not improved since being admitted despite being negative fluid balance of 4.3 liters. Her swelling has improved, however. She states that she maintains a low sodium diet. Her breathing difficulty has been an ongoing issue. She states that despite hospitalizations for her breathing difficulty, she never feels any better from a breathing standpoint even when discharged. She denies chest pain, syncope, or palpitations. OBJECTIVE: VITAL SIGNS: Temperature 37 degrees, heart rate 82 beats per minute, respiratory rate 18, blood pressure 117/74 mmHg, and oxygen saturation 95% on 2 liters per nasal cannula. I's and O's negative 1.1 liters yesterday and negative 4.36 liters so far this hospitalization. Weight 99.3 kg. GENERAL: No acute distress. She is alert. NECK: Thick. I cannot assess for JVD. CARDIAC EXAM: No ventricular heave. Regular, normal S1 and S2. No audible murmurs, rubs or gallops. LUNGS: Decreased breath sounds, but clear. ABDOMEN: Protuberant and obese. Normal active bowel sounds. Nontender. EXTREMITIES: Trace bilateral lower extremity edema. No cyanosis. PSYCHIATRIC: Affect appears appropriate. MEDICATIONS: Include Lasix 20 mg IV b.i.d., heparin 5000 units subQ q. 8 hours, midodrine 2.5 mg p.o. t.i.d., Synthroid 88 mcg daily, Zosyn IV, prednisone 40 mg daily, simvastatin 20 mg at bedtime, and Celexa 30 mg daily. LABORATORY DATA: From yesterday, sodium 139, potassium 3.8, BUN 29, and creatinine 1.3. Albumin earlier this hospital stay 3.1. ProBNP 171. TSH 0.98. White blood cell count 9.24, hemoglobin 11.7, and platelets 167. CT scan of the chest report reviewed. Small right pleural effusion with associated airspace opacities suggestive of atelectasis. Bilateral lower lobe lingular and right middle lobe opacity suggestive of atelectasis. Echocardiogram report reviewed from 04/14/[address] Decker. Technically limited study. Grossly normal LV size and systolic function. RV not well visualized, but appears grossly normal. No significant valvular abnormalities reported. Telemetry personally reviewed. No arrhythmia. Chart reviewed. ASSESSMENT AND PLAN: 1. Shortness of breath: Etiology has not been completely identified. It is not likely left heart failure. She has had several ProBNPs over the past couple of years and it has been consistently below 300. Also, she has had a good response to IV diuretics and despite this, her breathing has not improved according to her report this morning. A right heart catheterization may help better identify etiology or at least define her filling pressures and pulmonary artery pressures and may be of diagnostic benefit going forward. Risks and benefits were discussed with her today. She would like to undergo the procedure. Her daughter, Delores was also updated via telephone and plans on coming to the hospital some point today hopefully for the right heart catheterization. 2. Edema: Her edema has improved and now appears to be trace. She has responded well to diuretics. Etiology uncertain. Plan as above. Monitor renal function and electrolytes closely with diuretic therapy. 3. Orthostatic hypotension: She is on midodrine. She denies any symptoms. 4. Disposition: Right heart catheterization is pending. The patient's care has been discussed with Dr. Carpio of interventional cardiology, who will be performing the right heart catheterization if it is able to be done today. Addendum: She underwent right heart catheterization. Please see report by Dr. Carpio for full details. He reported the following: RA 6/2/0; RV 28/2 ; PA 28/10/17; PW 6/ 5/3 mmHg. The mean right atrial pressure and pulmonary capillary wedge pressure are actually low, suggesting intravascular hypovolemia. PVR is 4 Wood units. This supports that heart failure is not the etiology for her shortness of breath as she continues to be short of breath this morning with these filling pressures. Recommend discontinuation of intravenous diuretic therapy. Right heart catheterization results were discussed with primary service, Dr. Corral. He plans on discontinuing intravenous diuretic therapy and restarting oral diuretics with creatinine improves to help control her peripheral edema. In regards to her shortness of breath, would recommend continued evaluation and follow-up as per pulmonology. A phone call was made to discussed findings with her daughter, Delores. There was no answer. Dr. Carpio discussed results with her daughter following the procedure. Please call for any further questions or concerns from a cardiac perspective. [facility]IN[facility] HEALTH SYSTEMChelsie
[2017-04-17] MEDS: DICLOFENAC SOD 1% GEL 100 GM TUBE EXT SCH ×4 (09:17→21:16)
[2017-04-17] MEDS: FUROSEMIDE INJ 20 MG in SYRINGE 0 ML IV SCH (09:17)
[2017-04-17] MEDS: TIOTROPIUM BROMIDE 5 PUFF/90 MCG INH INH SCH (09:18)
[2017-04-17] MEDS ORDERED: MIDAZOLAM HCL 1 MG/ML 2ML VIAL ONE (10:37)
[2017-04-17] MEDS ORDERED: FENTANYL CITRATE INJ 50 MCG/1 ML 2 ML VIAL ONE (10:37)
[2017-04-17] MEDS: LACTOBACILLUS ACIDOPHILUS 1 GM PACK PO SCH ×2 (11:30→17:15)
[2017-04-17] MEDS ORDERED: SODIUM CHLORIDE 0.9% 1000ML 250 ML IV PRN (12:09)
[2017-04-17] MEDS ORDERED: ACETAMINOPHEN 325 MG TAB PO PRN (12:15)
[2017-04-17] MEDS ORDERED: ONDANSETRON INJ 2 MG/ML 2 ML VIAL IV PRN (12:15)
[2017-04-17] MEDS ORDERED: ATROPINE SULFATE 0.1 MG/ML 5ML SYR IV PRN (12:15)
[2017-04-17 12:33] LABS: ISTAT ARTERIAL BLOOD GAS HCO3 37 meq/L (19-24); ISTAT ARTERIAL BLOOD GAS PCO2 53 mmHg (35-46); ISTAT ARTERIAL BLOOD GAS PO2 < 32 mmHg (80-95); ISTAT ARTERIAL BLOOD GAS pH 7.45 (7.35-7.45); ISTAT CARBON DIOXIDE 38 mEq/l (24-31)
[2017-04-17 12:33] LABS: ISTAT ARTERIAL BLOOD GAS HCO3 38 meq/L (19-24); ISTAT ARTERIAL BLOOD GAS PCO2 54 mmHg (35-46); ISTAT ARTERIAL BLOOD GAS PO2 < 32 mmHg (80-95); ISTAT ARTERIAL BLOOD GAS pH 7.45 (7.35-7.45); ISTAT CARBON DIOXIDE 39 mEq/l (24-31)
--- NOTE | 2017-04-17 13:42 | Cardiac Catheterization ---
Procedure Note Procedure Date Apr 17, 2017. Pre-Procedure Diagnosis CHF AUC Score 7 Post-Procedure Diagnosis Normal Intracardiac Pressures Procedure(s) Performed Right Heart Cath [facility] Mortiser Operator Dr. Carpio Home Care Chaplain(s) AMY Ritchie Estimated Blood Loss 15 ml Medication(s) Fentanyl, Versed, Lidocaine 1% Intravenous versed given for anxiety reduction. Intravenous fentanyl given for analgesia. Summary of Findings Clinical indications: Presumed Congestive heart failure and elevated right heart pressures. Catheterization site: 6 Austrian sheath right femoral vein. The transducer was positioned with the use of a level. Accurate positioning of the transducer was verified prior to performance of right heart catheterization. Multiple attempts were required to adequately access the right femoral vein. Ultrasound guidance was utilized. The vein was entered several times and the guidewire would not advance. The femoral artery was cannulated with the needle. Hemostasis was obtained with application of local pressure. Ultimately the femoral vein was adequately cannulated and a guidewire was advanced. The sheath was then inserted uneventfully. Catheters: 6 Austrian Brady-Jelena thermodilution catheter. Hemostasis: Manual pressure. Complications: No significant complications. The patient's skin in the groin was very fragile. The superficial layers split easily just with finger pressure. Findings: The pressures in mm of mercury were: RA 6/2/0; RV 28/2 ; PA 28/10/17 ; PW 6/5/3. The cardiac output by the thermodilution method was 3.5 liters/ minute. The cardiac index was 1.8 liters/minute per meter squared. The pulmonary artery oxygen saturation was 60%. Right atrial oxygen saturation 61% . The right femoral vein pressure was 15. Conclusions: Low to normal right heart and pulmonary wedge pressures. Hemodynamics Rest Ao: NA Final Ao: NA LV: NA RA: 6/2/0 mm Hg RV: 25/2 mm Hg PA: 28/10/17 mm Hg PW: 6/5/3 mm Hg . Recommendations Medical therapy and/or Counseling Specimens None Radiation Exposure (mGy) 774 Contrast (mls) none Fluids (cc crystalloids) 100 Drains none Anesthesia Intravenous versed and fentanyl. Lidocaine 1% for local anesthesia. Procedural Complication(s) None Disposition PCU ACC Data Cardiac Status Clinical evaluation leading to the procedure CAD Presntation: No Sxs, no angina Anginal Classification: No symptoms Heart Failure: NYHA Class: CCS III (Presumed. However, BNP normal.) Cardiogenic Shock w/in 24Hrs: No Cardiac Arrest w/in 24Hrs: No Imaging studies past 6 months: Yes Stress studies past 6 months: No Standard Exercise Stress Test: No Stress Echocardiogram: No Stress Testing w/SPECT MPI: No Cardiac CTA: No
--- NOTE | 2017-04-17 13:43 | Procedure Note ---
Pre-Mod Sedation Assessment General Date of Moderate Sedation: Apr 17, 2017. Vital Signs: Vital Signs Past 12 Hours Date Time Temp Pulse Resp B/P (MAP) Pulse Ox O2 Delivery O2 Flow Rate FiO2 04/17/17 13:00 89 16 128/78 (95) 96 Nasal Cannula 3.0 04/17/17 12:45 82 16 125/71 (89) 97 Nasal Cannula 3.0 04/17/17 12:30 Nasal Cannula 3.0 04/17/17 12:28 36.7 93 20 129/78 (95) 97 Nasal Cannula 3.0 04/17/17 12:00 93 18 147/90 (109) 97 Room Air 04/17/17 08:00 Nasal Cannula 2.0 04/17/17 07:08 82 18 95 Nasal Cannula 2.0 04/17/17 07:04 37.0 82 20 117/74 (88) 95 Nasal Cannula 2.0 04/17/17 04:00 Nasal Cannula 2.0 04/17/17 04:00 37.1 88 18 160/89 (112) 96 Nasal Cannula 2.0 Review Cardiovascular: regular rate, rhythm, + pertinent finding (peripheral edema) Abdomen: + distended Lungs: lungs clear Pre-Sedation Airway Assessment Oral Cavity: Dentures Able to Visualize Vocal Cords: No Short Thick Neck: Yes Hx of Sleep Apnea: No Smoking Status: Never Smoker ASA Classification: Class IV Procedure Planning Contraindications-for Mod Sed: None Yes Notes The planned sedation has been discussed with the patient and consent obtained. I have identified the patient, determined the appropriateness of sedation and have assessed the patient immediately prior to the procedure. All medicine(s) and interventions are by my order.
--- NOTE | 2017-04-17 13:45 | Procedure Note ---
Post-Mod Sedation Assessment General Date of Moderate Sedation Apr 17, 2017. Vital Signs: Vital Signs Past 12 Hours Date Time Temp Pulse Resp B/P (MAP) Pulse Ox O2 Delivery O2 Flow Rate FiO2 04/17/17 13:00 89 16 128/78 (95) 96 Nasal Cannula 3.0 04/17/17 12:45 82 16 125/71 (89) 97 Nasal Cannula 3.0 04/17/17 12:30 Nasal Cannula 3.0 04/17/17 12:28 36.7 93 20 129/78 (95) 97 Nasal Cannula 3.0 04/17/17 12:00 93 18 147/90 (109) 97 Room Air 04/17/17 08:00 Nasal Cannula 2.0 04/17/17 07:08 82 18 95 Nasal Cannula 2.0 04/17/17 07:04 37.0 82 20 117/74 (88) 95 Nasal Cannula 2.0 04/17/17 04:00 Nasal Cannula 2.0 04/17/17 04:00 37.1 88 18 160/89 (112) 96 Nasal Cannula 2.0 Review - Discharge Criteria Vital Signs Stable: Yes Alert/Oriented/Conversant: Yes Returned to Baseline Mental St: Yes Nausea Absent/Minimal: Yes Pain/Discomfort/Absent/Minimal: Yes Normal/Baseline Respirations: Yes Active Bleeding?: No Pt Received D/C Instructions: N/A Prescriptions Given: None Specific Proced. D/C Criteria Distal Pulses Present (Cardiac: Yes Groin site assessed-Card Cath: Yes Voided Prior To Discharge: N/A Discharged Patients Adult Escort/Transportation: N/A
[2017-04-17] MEDS ORDERED: SULFAMETHOXAZOLE/TRIMETHOPRIM DS 800/160MG TAB PO ONE (14:45)
--- NOTE | 2017-04-17 16:37 | Pulmonology Progress Note ---
Pulmonary Progress Note Date of Service Apr 17, 2017. Attending Dr. Mahoney Subjective Patient seen and examined. She is status post a right heart cath. States that she feels a little bit tired and lethargic. Objective Vital signs: Temperature max 37.1, blood pressure 102/68 to 160/89, pulse 82-93 , respiratory rate 16-21 pulse oximetry 93-99% on 3 L nasal cannula. Cumulative output is 4900 since admission On exam Gen.: No acute distress, lying comfortably in bed with flat affect CVS: S1-S2, regular rate and rhythm, heart sounds distant, no murmurs rubs or gallops appreciated Pulmonary: Decreased breath sounds bilaterally, bibasilar crackles Abdomen: Obese, nontender, bowel sounds positive, umbilical hernia Extremities: Edema bilateral lower extremity, right greater than left with positive erythema. Dressing in place on right femoral insertion site. No cyanosis, no clubbing. Medications: Patient on Zosyn 4.5 g every 8 hours, Bactrim DS 160 mg every 12 hours, ipratropium 1 puff daily, penicillin 40 mg daily, Lasix 20 mg twice a day IV, heparin 5000 units every 8 hours subcutaneous every 4 hours, Synthroid 88 g grams by mouth daily. Right heart cath 04/17/2017 LV: NA RA: 6/2/0 mm Hg RV: 25/2 mm Hg PA: 28/10/17 mm Hg PW: 6/5/3 mm Hg . Labs: POC pH 7.45, PCO2 53, PO2 32, bicarbonate 37, O2 saturation 61% NIF: Per the respiratory notes the patient had 3 consecutive studies 22, 22, 18 Micro: MRSA DNA nasal swab: Positive Right upper extremity cultures 04/17/2017pending Imaging: CT Thorax (04/15/17) compared to 01/14/17 CT Chest Continued right pleural effusion with associated atelectasis Bilateral lower lobe, Lingular, RML opacifications suggestive of atelectasis Assessment & Plan Respiratory insufficiency on LTOT 2L History of Asthma on chronic steroids Diaphragmatic weakness Obesity hypoventilation syndrome Deconditioning The patient's respiratory symptoms appear to be multifactorial in nature. She is status post right heart catheterization today for elevated pulmonary pressures seen on transthoracic echo cardiogram. However, right heart pressures are low to within normal limits. V/Q scan has been ordered to rule out CTPEH. However, with normal right heart pressures and this unlikely. Patient also had a bedside pulmonary function tests which show severe restriction. This can be secondary to chronic steroid use and diaphragmatic weakness as well as obesity. There also may be a component of decreased effort present. Patient may benefit from a full sleep study as well as pulmonary rehabilitation as an outpatient. In the meantime,She does appear to the responding well to diuresis. I would continue this as her creatinine tolerates. Avoid sedatives as this can precipitate lethargy and hypoventilation. Continue with oxygen and titrate to an SaO2 between 88-92%. She may benefit from CPAP at night. Continue with nebulizers and antibiotics to complete a 7-10 days. Recommend physical therapy and occupational therapy consults. Will continue to follow with you. Data Medications: Current Inpatient Medications Medications (Trade) Dose Ordered Sig/Natasha Route Start Time Stop Time Status Last Admin Dose Admin Acetaminophen (Tylenol Tab) 650 mg Q4H PRN PO 04/13/17 15:30 05/13/17 15:29 Al Hydrox/Mg Hydrox/Simethicone (Maalox Max Susp) 15 ml Q4H PRN PO 04/13/17 15:30 05/13/17 15:29 Magnesium Hydroxide (Milk Of Magnesia Susp) 30 ml Q12H PRN PO 04/13/17 15:30 05/13/17 15:29 Ondansetron HCl (Zofran Inj) 4 mg Q6H PRN IV 04/13/17 15:30 05/13/17 15:29 Nitroglycerin (Nitrostat Tab) 0.4 mg UD PRN SL 04/13/17 15:30 05/13/17 15:29 Polyethylene (Miralax Powder Packet) 17 gm DAILY PRN PO 04/13/17 15:30 05/13/17 15:29 Citalopram Hydrobromide (celeXA TAB) 30 mg QAM PO 04/14/17 09:00 05/14/17 08:59 04/16/17 08:30 30 MG Cyanocobalamin (Vitamin B-12 Tab) 1,000 mcg QAM PO 04/14/17 09:00 05/14/17 08:59 04/16/17 08:30 1,000 MCG Diclofenac Sodium (Voltaren 1% Top Gel) 1 appln QID EXT 04/13/17 17:00 05/13/17 16:59 04/17/17 12:59 1 APPLN Gabapentin (Neurontin Cap) 300 mg BID PO 04/13/17 21:00 05/13/17 20:59 04/16/17 20:51 300 MG Levothyroxine Sodium (Synthroid Tab) 88 mcg DAILYBB PO 04/14/17 06:00 05/14/17 05:59 04/17/17 05:48 88 MCG Lorazepam (Ativan Tab) 0.5 mg HS PO 04/13/17 21:00 05/13/17 20:59 04/16/17 20:54 0.5 MG Midodrine (Proamatine Tab) 2.5 mg TID@0800,1200,1800 PO 04/13/17 21:00 05/13/17 20:59 04/16/17 18:14 2.5 MG Ropinirole HCl (Requip Tab) 0.5 mg HS PRN PO 04/13/17 16:15 05/13/17 16:14 04/14/17 08:41 0.5 MG Simvastatin (Zocor Tab) 20 mg HS PO 04/13/17 21:00 05/13/17 20:59 04/16/17 20:52 20 MG Tiotropium [place] (Spiriva Handihaler Inhaler) 1 puff DAILY INH 04/14/17 09:00 05/14/17 08:59 04/17/17 09:18 1 PUFF Tramadol HCl (Ultram Tab) 50 mg TID PO 04/13/17 21:00 05/13/17 20:59 04/17/17 15:11 50 MG Albuterol/ Ipratropium (Duoneb) 3 ml QIDR INH 04/13/17 20:00 05/13/17 19:59 04/17/17 07:08 3 ML Heparin Sodium (Porcine) (Heparin Sq 5000 Unit/0.5ml) 5,000 unit Q8 SQ 04/13/17 22:00 05/13/17 21:59 04/17/17 15:11 5,000 UNIT Prednisone (PredniSONE TAB) 40 mg DAILY PO 04/14/17 09:00 05/14/17 08:59 04/16/17 08:30 40 MG Furosemide 20 mg/ Syringe 2 ml @ 4 mls/min BID IV 04/14/17 09:00 05/14/17 08:59 04/17/17 09:17 4 MLS/MIN Lactobacillus Acidophilus (Lactinex Granules Pack) 1 gm TIDM PO 04/14/17 07:30 05/14/17 07:29 Future hold 04/16/17 12:25 1 GM Non-Formulary Medication (Non-Formulary Patient'S Own Med) 1 ea QID XX 04/15/17 21:00 05/15/17 20:59 04/16/17 18:14 1 EA Piperacillin Sod/ Tazobactam Sod (Consult) 1 ea UD PRN N/A 04/16/17 14:45 05/16/17 14:44 Piperacillin Sod/ Tazobactam Sod 4.5 gm/Dextrose 120 ml @ 30 mls/hr Q8H IV 04/17/17 02:00 04/21/17 13:59 04/17/17 09:18 30 MLS/HR Sodium Chloride 250 ml @ 999 mls/hr Q16M PRN IV 04/17/17 12:09 05/17/17 12:08 Atropine Sulfate (Atropine Sulfate 0.1MG/Ml Inj) 0.6 mg PRN PRN IV 04/17/17 12:15 05/17/17 12:14 Trimethoprim/ Sulfamethoxazole (Septra Ds 800/ 160MG Tab) 1 tab Q12 PO 04/17/17 21:00 04/27/17 08:59 I & O: 24-Hour Column 04/18/17 08:00 Intake Total 164 ml Output Total 775 ml Balance -611 ml Vital Signs: Date Time Temp Pulse Resp B/P (MAP) Pulse Ox O2 Delivery O2 Flow Rate FiO2 04/17/17 15:25 36.9 90 21 124/71 (88) 99 Nasal Cannula 3.0 04/17/17 14:45 85 127/75 (92) 93 04/17/17 14:15 91 137/79 (98) 99 04/17/17 13:45 88 18 117/72 (87) 99 3.0 04/17/17 13:30 91 102/68 (79) 99 04/17/17 13:15 90 18 126/79 (95) 98 04/17/17 13:00 89 16 128/78 (95) 96 Nasal Cannula 3.0 04/17/17 12:45 82 16 125/71 (89) 97 Nasal Cannula 3.0 04/17/17 12:30 Nasal Cannula 3.0 04/17/17 12:28 36.7 93 20 129/78 (95) 97 Nasal Cannula 3.0 04/17/17 12:00 93 18 147/90 (109) 97 Room Air 04/17/17 08:00 Nasal Cannula 2.0 04/17/17 07:08 82 18 95 Nasal Cannula 2.0 04/17/17 07:04 37.0 82 20 117/74 (88) 95 Nasal Cannula 2.0 04/17/17 04:00 Nasal Cannula 2.0 04/17/17 04:00 37.1 88 18 160/89 (112) 96 Nasal Cannula 2.0 04/16/17 23:59 Nasal Cannula 2.0 04/16/17 23:15 37.2 93 16 143/82 (102) 96 Nasal Cannula 2.0 04/16/17 20:00 Nasal Cannula 2.0 04/16/17 19:50 93 18 97 Nasal Cannula 2.0 04/16/17 19:15 37.0 95 16 130/78 (95) 93 Nasal Cannula 2.0 04/16/17 16:30 Nasal Cannula 2.0 Laboratory Results: Last 24 Hours Test 04/17/17 11:53 04/17/17 11:57 Bedside Blood Gas pH (LAB) 7.45 7.45 Bedside Blood Gas pCO2 (LAB) 54 mmHg 53 mmHg Bedside Blood Gas pO2 (LAB) < 32 mmHg < 32 mmHg Bedside Blood Gas HCO3 (LAB) 38 meq/L 37 meq/L Bedside Blood Gas Total CO2 39 mEq/l 38 mEq/l Bedside Blood Gas Base Excess (LAB) 14.0 meq/L 13.0 meq/L Bedside Blood Gas O2 Saturation 60.0 % 61.0 %
--- NOTE | 2017-04-17 17:04 | Family Medicine Progress Note ---
Progress Note Date of Service Apr 17, 2017. Subjective Pt evaluation today including: conversation w/ patient, physical exam, chart review, lab review Pain: None Voiding: no voiding problems, christian catheter in place No complaints at this time Patient states that shortness of breath is minimally improved Denies chest pain, palpitations orthopnea S/p right heart catheterization today. Constitutional: No fever, No chills, No sweats Eyes: No eye pain, No redness, No discharge ENT: No nasal symptoms, No sore throat, No tinnitus Respiratory: + shortness of breath, No cough, No sputum, No wheezing Cardiovascular: No chest pain, No claudication, No palpitations Abdomen: No pain, No nausea, No vomiting, No diarrhea, No constipation Musculoskeletal: No joint pain, No muscle pain Female : No dysuria, No urinary frequency Neurologic: No memory loss, No paralysis, No weakness, No numbness/tingling Psychiatric: No depression symptoms, No anhedonism, No anxiety Endo: No excessive thirst, No excessive urination Skin: No rash All Other Systems: Reviewed and Negative Medications Current Inpatient Medications Medications (Trade) Dose Ordered Sig/Natasha Route Start Time Stop Time Status Last Admin Dose Admin Acetaminophen (Tylenol Tab) 650 mg Q4H PRN PO 04/13/17 15:30 05/13/17 15:29 Al Hydrox/Mg Hydrox/Simethicone (Maalox Max Susp) 15 ml Q4H PRN PO 04/13/17 15:30 05/13/17 15:29 Magnesium Hydroxide (Milk Of Magnesia Susp) 30 ml Q12H PRN PO 04/13/17 15:30 05/13/17 15:29 Ondansetron HCl (Zofran Inj) 4 mg Q6H PRN IV 04/13/17 15:30 05/13/17 15:29 Nitroglycerin (Nitrostat Tab) 0.4 mg UD PRN SL 04/13/17 15:30 05/13/17 15:29 Polyethylene (Miralax Powder Packet) 17 gm DAILY PRN PO 04/13/17 15:30 05/13/17 15:29 Citalopram Hydrobromide (celeXA TAB) 30 mg QAM PO 04/14/17 09:00 05/14/17 08:59 04/16/17 08:30 30 MG Cyanocobalamin (Vitamin B-12 Tab) 1,000 mcg QAM PO 04/14/17 09:00 05/14/17 08:59 04/16/17 08:30 1,000 MCG Diclofenac Sodium (Voltaren 1% Top Gel) 1 appln QID EXT 04/13/17 17:00 05/13/17 16:59 04/17/17 12:59 1 APPLN Gabapentin (Neurontin Cap) 300 mg BID PO 04/13/17 21:00 05/13/17 20:59 04/16/17 20:51 300 MG Levothyroxine Sodium (Synthroid Tab) 88 mcg DAILYBB PO 04/14/17 06:00 05/14/17 05:59 04/17/17 05:48 88 MCG Lorazepam (Ativan Tab) 0.5 mg HS PO 04/13/17 21:00 05/13/17 20:59 04/16/17 20:54 0.5 MG Midodrine (Proamatine Tab) 2.5 mg TID@0800,1200,1800 PO 04/13/17 21:00 05/13/17 20:59 04/16/17 18:14 2.5 MG Ropinirole HCl (Requip Tab) 0.5 mg HS PRN PO 04/13/17 16:15 05/13/17 16:14 04/14/17 08:41 0.5 MG Simvastatin (Zocor Tab) 20 mg HS PO 04/13/17 21:00 05/13/17 20:59 04/16/17 20:52 20 MG Tiotropium [place] (Spiriva Handihaler Inhaler) 1 puff DAILY INH 04/14/17 09:00 05/14/17 08:59 04/17/17 09:18 1 PUFF Tramadol HCl (Ultram Tab) 50 mg TID PO 04/13/17 21:00 05/13/17 20:59 04/17/17 15:11 50 MG Albuterol/ Ipratropium (Duoneb) 3 ml QIDR INH 04/13/17 20:00 05/13/17 19:59 04/17/17 16:17 3 ML Heparin Sodium (Porcine) (Heparin Sq 5000 Unit/0.5ml) 5,000 unit Q8 SQ 04/13/17 22:00 05/13/17 21:59 04/17/17 15:11 5,000 UNIT Prednisone (PredniSONE TAB) 40 mg DAILY PO 04/14/17 09:00 05/14/17 08:59 04/16/17 08:30 40 MG Furosemide 20 mg/ Syringe 2 ml @ 4 mls/min BID IV 04/14/17 09:00 05/14/17 08:59 04/17/17 09:17 4 MLS/MIN Lactobacillus Acidophilus (Lactinex Granules Pack) 1 gm TIDM PO 04/14/17 07:30 05/14/17 07:29 Future hold 04/16/17 12:25 1 GM Non-Formulary Medication (Non-Formulary Patient'S Own Med) 1 ea QID XX 04/15/17 21:00 05/15/17 20:59 04/16/17 18:14 1 EA Piperacillin Sod/ Tazobactam Sod (Consult) 1 ea UD PRN N/A 04/16/17 14:45 05/16/17 14:44 Piperacillin Sod/ Tazobactam Sod 4.5 gm/Dextrose 120 ml @ 30 mls/hr Q8H IV 04/17/17 02:00 04/21/17 13:59 04/17/17 09:18 30 MLS/HR Sodium Chloride 250 ml @ 999 mls/hr Q16M PRN IV 04/17/17 12:09 05/17/17 12:08 Atropine Sulfate (Atropine Sulfate 0.1MG/Ml Inj) 0.6 mg PRN PRN IV 04/17/17 12:15 05/17/17 12:14 Trimethoprim/ Sulfamethoxazole (Septra Ds 800/ 160MG Tab) 1 tab Q12 PO 04/17/17 21:00 04/27/17 08:59 Objective Vital Signs Date Time Temp Pulse Resp B/P (MAP) Pulse Ox O2 Delivery O2 Flow Rate FiO2 04/17/17 16:17 92 18 95 Nasal Cannula 2.0 04/17/17 15:25 36.9 90 21 124/71 (88) 99 Nasal Cannula 3.0 04/17/17 14:45 85 127/75 (92) 93 04/17/17 14:15 91 137/79 (98) 99 04/17/17 13:45 88 18 117/72 (87) 99 3.0 04/17/17 13:30 91 102/68 (79) 99 04/17/17 13:15 90 18 126/79 (95) 98 04/17/17 13:00 89 16 128/78 (95) 96 Nasal Cannula 3.0 04/17/17 12:45 82 16 125/71 (89) 97 Nasal Cannula 3.0 04/17/17 12:30 Nasal Cannula 3.0 04/17/17 12:28 36.7 93 20 129/78 (95) 97 Nasal Cannula 3.0 04/17/17 12:00 93 18 147/90 (109) 97 Room Air 04/17/17 08:00 Nasal Cannula 2.0 04/17/17 07:08 82 18 95 Nasal Cannula 2.0 04/17/17 07:04 37.0 82 20 117/74 (88) 95 Nasal Cannula 2.0 04/17/17 04:00 Nasal Cannula 2.0 04/17/17 04:00 37.1 88 18 160/89 (112) 96 Nasal Cannula 2.0 04/16/17 23:59 Nasal Cannula 2.0 04/16/17 23:15 37.2 93 16 143/82 (102) 96 Nasal Cannula 2.0 04/16/17 20:00 Nasal Cannula 2.0 04/16/17 19:50 93 18 97 Nasal Cannula 2.0 04/16/17 19:15 37.0 95 16 130/78 (95) 93 Nasal Cannula 2.0 Physical Exam General Appearance: WD/WN, no apparent distress Eyes: normal inspection, EOMI ENT: hearing grossly normal, TMs normal, pharynx normal Neck: supple, no adenopathy, no JVD Respiratory/Chest: lungs clear, no respiratory distress Cardiovascular: regular rate, rhythm, no gallop, no murmur Abdomen: normal bowel sounds, non tender, soft Extremities: + pertinent finding (supercificial ulcer with surrounding warmth and erythema) Neurologic/Psychiatric: alert, normal mood/affect, oriented x 3 Skin: normal color, warm/dry, no rash Lymphatic: no adenopathy Laboratory Results Last 24 Hours Test 04/17/17 11:53 04/17/17 11:57 Bedside Blood Gas pH (LAB) 7.45 7.45 Bedside Blood Gas pCO2 (LAB) 54 mmHg 53 mmHg Bedside Blood Gas pO2 (LAB) < 32 mmHg < 32 mmHg Bedside Blood Gas HCO3 (LAB) 38 meq/L 37 meq/L Bedside Blood Gas Total CO2 39 mEq/l 38 mEq/l Bedside Blood Gas Base Excess (LAB) 14.0 meq/L 13.0 meq/L Bedside Blood Gas O2 Saturation 60.0 % 61.0 % Assessment and Plan 82 year old female with acute on chronic SOB. Our plan for her is as follows: Shortness of breath - Appears to be chronic, with recent exacerbation - Currently on 3.5 L by [place]; She was started on 2L of O2 1 week prior to admission. - Likely cause is multifactorial Diaphragmatic hemiparesis, yielding poor inspiratory effort and tidal volumes History of asthma, with severe restriction on bedside spirometry Elevated BMI likely secondary airway obstruction - Initial impression was acute on chronic CHF; s/p right heart catheterization not suggestive of elevated pressures; in addition BNPs have essentially been normal making cardiac etiology less likely - Continue 2 L by nasal cannula when awake with BiPAP at nighttime - Continue Duoneb and Spiriva - Continue Prednisone; will continue 40 mg dose today - Patient current receiving treatment for PNA, though CT does not suggest infiltration and pro-calcitonin was negative. Will de-escalate to PO Levaquin and complete 7 day course - Lasix will be held at this time as patient is nearly 5 L negative and studies suggest this is unlikely CHF; monitor daily I/Os Patient in Torsemide and Spironolactone at home which can be re-started tomorrow - Pulmonary recommendations appreciated - We will order a V/Q scan; if negative, this may be patient's new baseline in the setting of multiple co-morbidities Acute Kidney Injury - Cr 1.3 today; baseline 1.0-1.1 - Will hold Lasix and Diuretics for today as 5 L down; will also hold Torsemide and Spironolactone at this time until Cr noted to trend downward and patient is not grossly overloaded at this time Orthostatic Hypotension - Continue Midodrine - BPs stable in 120s systolic - In conjunction with severe SOB, this may greatly affect her ability to ambulate out of hospital Right [place] Cellulitis - History of MRSA - Will started on Bactrim DS 1 tab PO BID - Wound culture pending Depression - Continue Citalopram Hypothyroidism - Continue Levothyroxine Restless Leg - Continue Requip Code Status - Level I Full Code DVT Prophylaxis - Heparin 5000 units TID Disposition - OT/PT evaluate and treat - Discharge needs unclear at this time Reviewed: Pt Seen/Exam by Me History still continues to feel short of breath. no worsening with posture. activity worsens. no chest pain. Constitutional: denies: fever Gastrointestinal/Abdominal: negative: abdominal pain General Appearance: no apparent distress (comfortable in bed) Respiratory: lungs clear, no respiratory distress Cardiovascular: regular rate, rhythm Neurologic/Psychiatric: alert, oriented x 3 Skin Characteristics: warm/dry Assessment/Plan Resident Physician Supervision Note: I was present with Dr. Corral in bedside. I verified the alexander history and physical, reviewed labs and image studies, discussed the case with the resident and agree with the findings and care plan.
[2017-04-17 18:11] LABS: HEMATOCRIT 36.6 % (37-47); MEAN CELL VOLUME 96.6 fL (80-100); MEAN CORPUSCULAR HEMOGLOBIN 31.4 pg (25-34); MEAN PLATELET VOLUME 9.6 fL (7.4-10.4); PLATELET COUNT 152 K/uL (130-400); RED BLOOD COUNT 3.79 M/uL (4.2-5.4); WHITE BLOOD COUNT 9.03 K/uL (4.8-10.8)
[2017-04-17 18:18] LABS: MEAN CORPUSCULAR HGB CONC 32.5 g/dl (32-36)
[2017-04-17] MEDS: AMOXICILLIN/CLAVULANATE TAB 875 MG TAB PO SCH (19:00)
--- NOTE | 2017-04-17 20:52 | DIAGNOSTIC IMAGING REPORT ---
NUCLEAR PULMONARY VENTILATION/PERFUSION SCAN CLINICAL HISTORY: Hypoxia. Dyspnea. COMPARISON STUDY: Chest x-ray dated 01/23/2017. Chest CT dated 04/13/2017. TECHNIQUE: Initially, ventilation images of both lungs are obtained following the inhalation of 32.5 mCi of aerosolized technetium 99m DTPA. Subsequently, perfusion images of both lungs were obtained following the IV administration of 6.2 mCi of technetium 99m MAA. Ventilation and perfusion images were acquired in the anterior, posterior, and oblique projections. Note that interpretation is significantly suboptimal without current plain film correlate. FINDINGS: A chest x-ray performed 01/23/2017 shows cardiomegaly and small pleural effusions. The ventilation of both lungs is markedly heterogeneous. Deposition of tracer within the central airways suggests obstructive physiology. Perfusion is mildly heterogeneous. No segmental perfusion defects are identified on the perfusion imaging. IMPRESSION: 1. Findings are considered low probability for pulmonary embolus. 2. Markedly heterogeneous ventilation. Electronically signed by: Justo Mejias M.D. 04/17/2017 8:50 PM Dictated Date/Time: 04/17/2017 8:48 PM
[2017-04-17] MEDS: SIMVASTATIN 20 MG TAB PO SCH (21:17)
[2017-04-17] MEDS: SULFAMETHOXAZOLE/TRIMETHOPRIM DS 800/160MG TAB PO SCH (21:18)
[2017-04-17] MEDS: LORAZEPAM 0.5 MG TAB PO SCH (21:27)
[2017-04-18] VITALS (13 sets, daily range): BP systolic 99–166; BP diastolic 52–89; PULSE 72–103; TEMP 36.6–37.1; O2SAT 91–96
[2017-04-18] MEDS: HEPARIN SOD 5000 UNIT/0.5 ML CARP SQ SCH ×3 (06:12→21:44)
[2017-04-18] MEDS: LEVOTHYROXINE 88 MCG TAB PO SCH (06:12)
[2017-04-18 07:02] LABS: HEMATOCRIT 35.9 % (37-47); MEAN CELL VOLUME 97.3 fL (80-100); MEAN CORPUSCULAR HGB CONC 32.9 g/dl (32-36); MEAN PLATELET VOLUME 9.9 fL (7.4-10.4); PLATELET COUNT 162 K/uL (130-400); RED BLOOD COUNT 3.69 M/uL (4.2-5.4); WHITE BLOOD COUNT 9.04 K/uL (4.8-10.8)
[2017-04-18] MEDS: ALBUT/IPRATROP 3MG/0.5MG NEB 3 ML VIAL INH SCH ×4 (07:13→19:05)
[2017-04-18 07:38] LABS: BUN/CREATININE RATIO 20.1 (10-20); CALCIUM 8.3 mg/dl (8.5-10.1); CREATININE 1.3 mg/dl (0.60-1.20); POTASSIUM 3.3 mmol/L (3.5-5.1)
[2017-04-18] MEDS: CITALOPRAM 20 MG TAB PO SCH (09:34)
[2017-04-18] MEDS: DICLOFENAC SOD 1% GEL 100 GM TUBE EXT SCH ×4 (09:34→20:11)
[2017-04-18] MEDS: LACTOBACILLUS ACIDOPHILUS 1 GM PACK PO SCH ×3 (09:34→18:00)
[2017-04-18] MEDS: AMOXICILLIN/CLAVULANATE TAB 875 MG TAB PO SCH (09:35)
[2017-04-18] MEDS: GABAPENTIN 300 MG CAP PO SCH ×2 (09:35→20:10)
[2017-04-18] MEDS: CYANOCOBALAMIN 500 MCG TAB (VIT B-12) PO SCH (09:35)
[2017-04-18] MEDS: SULFAMETHOXAZOLE/TRIMETHOPRIM DS 800/160MG TAB PO SCH (09:35)
[2017-04-18] MEDS: MIDODRINE 2.5 MG TAB PO SCH ×3 (09:36→18:01)
--- NOTE | 2017-04-18 09:36 | Family Medicine Progress Note ---
Progress Note Date of Service Apr 18, 2017. Subjective Pt evaluation today including: conversation w/ patient, physical exam, chart review, lab review Pain: None Voiding: no voiding problems, no incontinence SOB slightly improved No acute issues overnight States would like to go home No new issues; eating and drinking well; no voiding issues Constitutional: No fever, No chills, No sweats Eyes: No worsening of vision, No eye pain, No redness ENT: No hearing loss, No unusual epistaxis, No nasal symptoms, No sore throat, No tinnitus Respiratory: + shortness of breath (improving), No cough, No sputum, No wheezing Cardiovascular: No chest pain, No orthopnea, No palpitations Abdomen: No pain, No nausea, No vomiting, No diarrhea Musculoskeletal: No joint pain, No muscle pain Female : No dysuria, No urinary frequency Neurologic: No numbness/tingling Psychiatric: No depression symptoms, No anxiety Heme: No clotting problems, No swollen lymph nodes Endo: No fatigue, No excessive thirst, No excessive urination Skin: + new/changing skin lesions (right [place] superficial ulcer; stable), No rash, No itch Medications Current Inpatient Medications Medications (Trade) Dose Ordered Sig/Natasha Route Start Time Stop Time Status Last Admin Dose Admin Acetaminophen (Tylenol Tab) 650 mg Q4H PRN PO 04/13/17 15:30 05/13/17 15:29 Al Hydrox/Mg Hydrox/Simethicone (Maalox Max Susp) 15 ml Q4H PRN PO 04/13/17 15:30 05/13/17 15:29 Magnesium Hydroxide (Milk Of Magnesia Susp) 30 ml Q12H PRN PO 04/13/17 15:30 05/13/17 15:29 Ondansetron HCl (Zofran Inj) 4 mg Q6H PRN IV 04/13/17 15:30 05/13/17 15:29 Nitroglycerin (Nitrostat Tab) 0.4 mg UD PRN SL 04/13/17 15:30 05/13/17 15:29 Polyethylene (Miralax Powder Packet) 17 gm DAILY PRN PO 04/13/17 15:30 05/13/17 15:29 Citalopram Hydrobromide (celeXA TAB) 30 mg QAM PO 04/14/17 09:00 05/14/17 08:59 04/16/17 08:30 30 MG Cyanocobalamin (Vitamin B-12 Tab) 1,000 mcg QAM PO 04/14/17 09:00 05/14/17 08:59 04/16/17 08:30 1,000 MCG Diclofenac Sodium (Voltaren 1% Top Gel) 1 appln QID EXT 04/13/17 17:00 05/13/17 16:59 04/17/17 21:16 1 APPLN Gabapentin (Neurontin Cap) 300 mg BID PO 04/13/17 21:00 05/13/17 20:59 04/17/17 21:17 300 MG Levothyroxine Sodium (Synthroid Tab) 88 mcg DAILYBB PO 04/14/17 06:00 05/14/17 05:59 04/18/17 06:12 88 MCG Lorazepam (Ativan Tab) 0.5 mg HS PO 04/13/17 21:00 05/13/17 20:59 04/17/17 21:27 0.5 MG Midodrine (Proamatine Tab) 2.5 mg TID@0800,1200,1800 PO 04/13/17 21:00 05/13/17 20:59 04/17/17 17:19 2.5 MG Ropinirole HCl (Requip Tab) 0.5 mg HS PRN PO 04/13/17 16:15 05/13/17 16:14 04/14/17 08:41 0.5 MG Simvastatin (Zocor Tab) 20 mg HS PO 04/13/17 21:00 05/13/17 20:59 04/17/17 21:17 20 MG Tiotropium [place] (Spiriva Handihaler Inhaler) 1 puff DAILY INH 04/14/17 09:00 05/14/17 08:59 04/17/17 09:18 1 PUFF Tramadol HCl (Ultram Tab) 50 mg TID PO 04/13/17 21:00 05/13/17 20:59 04/17/17 21:28 50 MG Albuterol/ Ipratropium (Duoneb) 3 ml QIDR INH 04/13/17 20:00 05/13/17 19:59 04/18/17 07:13 3 ML Heparin Sodium (Porcine) (Heparin Sq 5000 Unit/0.5ml) 5,000 unit Q8 SQ 04/13/17 22:00 05/13/17 21:59 04/18/17 06:12 5,000 UNIT Prednisone (PredniSONE TAB) 40 mg DAILY PO 04/14/17 09:00 05/14/17 08:59 04/16/17 08:30 40 MG Furosemide 20 mg/ Syringe 2 ml @ 4 mls/min BID IV 04/14/17 09:00 05/14/17 08:59 Future Hold 04/17/17 09:17 4 MLS/MIN Lactobacillus Acidophilus (Lactinex Granules Pack) 1 gm TIDM PO 04/14/17 07:30 05/14/17 07:29 Future hold 04/17/17 17:15 1 GM Non-Formulary Medication (Non-Formulary Patient'S Own Med) 1 ea QID XX 04/15/17 21:00 05/15/17 20:59 04/17/17 21:17 1 EA Sodium Chloride 250 ml @ 999 mls/hr Q16M PRN IV 04/17/17 12:09 05/17/17 12:08 Atropine Sulfate (Atropine Sulfate 0.1MG/Ml Inj) 0.6 mg PRN PRN IV 04/17/17 12:15 05/17/17 12:14 Trimethoprim/ Sulfamethoxazole (Septra Ds 800/ 160MG Tab) 1 tab Q12 PO 04/17/17 21:00 04/27/17 08:59 04/17/17 21:18 1 TAB Amoxicillin/ Clavulanate Potassium (Augmentin Tab) 875 mg BIDM PO 04/17/17 18:30 04/24/17 16:44 04/17/17 19:00 875 MG Objective Vital Signs Date Time Temp Pulse Resp B/P (MAP) Pulse Ox O2 Delivery O2 Flow Rate FiO2 04/18/17 08:23 36.8 74 18 124/63 (83) 96 04/18/17 07:13 96 15 95 Nasal Cannula 2.0 04/18/17 04:00 BiPAP 2.0 04/18/17 03:51 37.1 99 19 128/80 (96) 94 Nasal Cannula 2.0 04/17/17 23:59 94 94 2.0 04/17/17 23:59 94 16 94 BiPAP 2.0 04/17/17 23:59 BiPAP 2.0 04/17/17 23:31 37.2 101 20 133/78 (96) 95 Nasal Cannula 2.0 04/17/17 20:00 Nasal Cannula 2.0 04/17/17 19:47 37.1 100 20 118/76 (90) 92 Nasal Cannula 2.5 04/17/17 17:15 105 121/70 (87) 95 04/17/17 16:17 92 18 95 Nasal Cannula 2.0 04/17/17 16:15 97 18 120/79 (93) 97 Nasal Cannula 2.0 04/17/17 16:00 Nasal Cannula 3.0 04/17/17 15:25 36.9 90 21 124/71 (88) 99 Nasal Cannula 3.0 04/17/17 15:15 93 130/78 (95) 95 04/17/17 14:45 85 127/75 (92) 93 04/17/17 14:15 91 137/79 (98) 99 04/17/17 13:45 88 18 117/72 (87) 99 3.0 04/17/17 13:30 91 102/68 (79) 99 04/17/17 13:15 90 18 126/79 (95) 98 04/17/17 13:00 89 16 128/78 (95) 96 Nasal Cannula 3.0 04/17/17 12:45 82 16 125/71 (89) 97 Nasal Cannula 3.0 04/17/17 12:30 Nasal Cannula 3.0 04/17/17 12:28 36.7 93 20 129/78 (95) 97 Nasal Cannula 3.0 04/17/17 12:00 93 18 147/90 (109) 97 Room Air Physical Exam General Appearance: WD/WN, no apparent distress Eyes: normal inspection, EOMI ENT: hearing grossly normal, pharynx normal Neck: supple, no adenopathy, no JVD Respiratory/Chest: lungs clear, no respiratory distress, + pertinent finding ( nasal cannula 2 L) Cardiovascular: regular rate, rhythm, no gallop, no murmur Abdomen: normal bowel sounds, non tender, soft Extremities: + pertinent finding (bilateral low grade tenderness; has been chronic; right [place] coinsized superficial ulcer covered with optifoam) Neurologic/Psychiatric: alert, normal mood/affect Skin: normal color, warm/dry, no rash Lymphatic: no adenopathy Laboratory Results Last 24 Hours Test 04/17/17 11:53 04/17/17 11:57 04/17/17 18:05 04/18/17 06:29 Bedside Blood Gas pH (LAB) 7.45 7.45 Bedside Blood Gas pCO2 (LAB) 54 mmHg 53 mmHg Bedside Blood Gas pO2 (LAB) < 32 mmHg < 32 mmHg Bedside Blood Gas HCO3 (LAB) 38 meq/L 37 meq/L Bedside Blood Gas Total CO2 39 mEq/l 38 mEq/l Bedside Blood Gas Base Excess (LAB) 14.0 meq/L 13.0 meq/L Bedside Blood Gas O2 Saturation 60.0 % 61.0 % White Blood Count 9.03 K/uL 9.04 K/uL Red Blood Count 3.79 M/uL 3.69 M/uL Hemoglobin 11.9 g/dL 11.8 g/dL Hematocrit 36.6 % 35.9 % Mean Corpuscular Volume 96.6 fL 97.3 fL Mean Corpuscular Hemoglobin 31.4 pg 32.0 pg Mean Corpuscular Hemoglobin Concent 32.5 g/dl 32.9 g/dl RDW Standard Deviation 60.0 fL 62.7 fL RDW Coefficient of Variation 17.1 % 17.5 % Platelet Count 152 K/uL 162 K/uL Mean Platelet Volume 9.6 fL 9.9 fL Nucleated RBC Absolute Count (auto) 0.02 K/uL 0.06 K/uL Nucleated Red Blood Cells % 0.2 % 0.6 % Sodium Level 138 mmol/L Potassium Level 3.3 mmol/L Chloride Level 95 mmol/L Carbon Dioxide Level 35 mmol/L Anion Gap 8.0 mmol/L Blood Urea Nitrogen 26 mg/dl Creatinine 1.30 mg/dl Est Creatinine Clear Calc Drug Dose 38.1 ml/min Estimated GFR () 44.9 Estimated GFR (Non- 38.7 BUN/Creatinine Ratio 20.1 Random Glucose 112 mg/dl Calcium Level 8.3 mg/dl Assessment and Plan 82 year old female with acute on chronic SOB. Our plan for her is as follows: Shortness of breath - Appears to be chronic, with recent exacerbation - Currently on 2 L NC, at baseline - Likely cause is multifactorial Diaphragmatic hemiparesis, yielding poor inspiratory effort and tidal volumes History of asthma, with severe restriction on bedside spirometry Elevated BMI likely causing restrictive airway ds. - Right heart catheterization negative for elevated pressures; effectively normal BNPs, objective making CHF unlikely as a an etiology - V/Q scan low probability for PE - PFT with restrictive lung ds - Continue 2 L by nasal cannula - Continue Duoneb and Spiriva - De-escalate Prednisone to 30 mg today x 2 days; then back to home dose of 20 mg I am reluctant to discontinue Prednisone altogether as a patient is likely chronically dependent - Patient currently being treated with Augmentin for presumed PNA This will be changed to Levaquin for concurrent coverage of PNA and cellulitis (as noted below) Will complete 7 day course from today (due to need for full course for cellulitis) - 5 L negative; discontinue IV Lasix as pulmonary congestion seems unlikely - Resume Torsemide and Spironolactone at home which can be re-started tomorrow - Incentive spirometer Acute Kidney Injury - Cr stable at ; baseline 1.0-1.1 Prolonged QTc - QTc 444 today - Quinolone use for PNA and cellulitis coverage can be deemed appropriate at this time Orthostatic Hypotension - Likely sec to adrenal suppression sec to chronic steroid use - Continue Midodrine - BPs stable - In conjunction with severe SOB, this may greatly affect her ability to ambulate out of hospital and risk for poor inspiratory effort Right [place] Cellulitis - History of MRSA - Started on Bactrim DS 1 tab PO BID; prelim cultures growing Pseudomonas - Start Levaquin; adjust per sensitivities Old rib fractures - no falls. patient reports getting fractures if leans onto anything - likely with significant osteopenia sec to chronic steroid use. Depression - Continue Citalopram Hypothyroidism - Continue Levothyroxine Restless Leg - Continue Requip Code Status - Level I Full Code DVT Prophylaxis - Heparin 5000 units TID Disposition - OT/PT evaluate and treat - Transfer to Med/Surg - Patient unfortunately, not having good ambulatory at this time; rehabilitation recommended. Per CM, daughter stated that she would like to have patient brought home and not rehabilitation. Patient has stated to that she refuses any inpatient rehabilitation. I will revisit discussion with family. Reviewed: Pt Seen/Exam by Me Constitutional: denies: fever Respiratory: positive: short of breath (breathing is same) Cardiovascular: denies chest pain Gastrointestinal/Abdominal: negative: abdominal pain General Appearance: no apparent distress Respiratory: lungs clear, no respiratory distress Cardiovascular: regular rate, rhythm Neurologic/Psychiatric: alert, oriented x 3 Skin Characteristics: warm/dry Assessment/Plan Resident Physician Supervision Note: I was present with Dr. Corral in bedside. I verified the alexander history and physical, reviewed labs and image studies, discussed the case with the resident and agree with the findings and care plan.
[2017-04-18] MEDS: [UNRECOGNIZED DRUG - OTHER] XX SCH ×4 (09:37→20:11)
[2017-04-18] MEDS: TRAMADOL HCL 50 MG TAB PO SCH ×3 (09:40→20:10)
[2017-04-18] MEDS: TIOTROPIUM BROMIDE 5 PUFF/90 MCG INH INH SCH (10:28)
[2017-04-18] MEDS ORDERED: POTASSIUM CHLORIDE 20 MEQ TABCR PO ONE (13:15)
[2017-04-18] MEDS ORDERED: LEVOFLOXACIN 500 MG TAB PO SCH (13:30)
--- NOTE | 2017-04-18 15:32 | Pulmonology Progress Note ---
Pulmonary Progress Note Date of Service Apr 18, 2017. Attending Dr. Mahoney Subjective Patient seen and examined at that time she has no complaints other than right groin pain at site of a right femoral catheter. She denies any shortness of breath, any chest pain, or cough. Objective Vital signs MAXIMUM TEMPERATURE 37.1, blood pressure 99/52 to 128/80, pulse 72- 101, respiratory rate 15-19, pulse ox 91-96%, on 2 L nasal cannula. Her cumulative balance is 5 L negative. Gen.: No acute distress, lying comfortably in bed with flat affect CVS: S1-S2, regular rate and rhythm, heart sounds distant, no murmurs rubs or gallops appreciated Pulmonary: Decreased breath sounds bilaterally, bibasilar crackles Abdomen: Obese, nontender, bowel sounds positive, umbilical hernia Extremities: Edema bilateral lower extremity, right greater than left with positive erythema. Dressing in place on right femoral insertion site. No cyanosis, no clubbing. Medications: Patient on Levaquin 500 mg by mouth daily, Spiriva 1 puff daily, albuterol every 4 hours, heparin 5000 units every 8 hours subcutaneous every 4 hours, Synthroid 88 g grams by mouth daily. Right heart cath 04/17/2017 LV: NA RA: 6/2/0 mm Hg RV: 25/2 mm Hg PA: 28/10/17 mm Hg PW: 6/5/3 mm Hg . Labs: POC pH 7.45, PCO2 53, PO2 32, bicarbonate 37, O2 saturation 61% NIF: Per the respiratory notes the patient had 3 consecutive studies 22, 22, 18 Micro: MRSA DNA nasal swab: Positive Culture of right lower extremity is positive for Pseudomonas species from 2016 Imaging: CT Thorax (04/15/17) compared to 01/14/17 CT Chest Continued right pleural effusion with associated atelectasis Bilateral lower lobe, Lingular, RML opacifications suggestive of atelectasis V/Q 04/17/2017 showed markedly heterogeneous ventilation with low probability for pulmonary embolus. Assessment & Plan Respiratory insufficiency on LTOT 2L History of Asthma on chronic steroids Diaphragmatic weakness Obesity hypoventilation syndrome Deconditioning The patient's respiratory symptoms appear to be multifactorial in nature. She is status post right heart catheterization today for elevated pulmonary pressures seen on transthoracic echo cardiogram. However, right heart pressures are low to within normal limits. V/Q scan was ordered to rule out CTPEH And has low probability for pulmonary embolism. Patient also had a bedside pulmonary function tests which show severe restriction. This can be secondary to chronic steroid use and diaphragmatic weakness as well as obesity. There also may be a component of decreased effort present. Patient may benefit from a full sleep study as well as pulmonary rehabilitation as an outpatient. In the meantime,She does appear to the responding well to diuresis. I would continue this as her creatinine tolerates. Avoid sedatives as this can precipitate lethargy and hypoventilation. Continue with oxygen and titrate to an SaO2 between 88-92%. She may benefit from CPAP at night. Continue with Spiriva, albuterol inhalers and antibiotics to complete a 7-10 days. Taper steroids as tolerated. This should be done slowly as an outpatient pulmonary clinic. Will sign off case for now. Please reconsult if you have other questions or concerns. Data Medications: Current Inpatient Medications Medications (Trade) Dose Ordered Sig/Natasha Route Start Time Stop Time Status Last Admin Dose Admin Acetaminophen (Tylenol Tab) 650 mg Q4H PRN PO 04/13/17 15:30 05/13/17 15:29 Al Hydrox/Mg Hydrox/Simethicone (Maalox Max Susp) 15 ml Q4H PRN PO 04/13/17 15:30 05/13/17 15:29 Magnesium Hydroxide (Milk Of Magnesia Susp) 30 ml Q12H PRN PO 04/13/17 15:30 05/13/17 15:29 Ondansetron HCl (Zofran Inj) 4 mg Q6H PRN IV 04/13/17 15:30 05/13/17 15:29 Nitroglycerin (Nitrostat Tab) 0.4 mg UD PRN SL 04/13/17 15:30 05/13/17 15:29 Polyethylene (Miralax Powder Packet) 17 gm DAILY PRN PO 04/13/17 15:30 05/13/17 15:29 Citalopram Hydrobromide (celeXA TAB) 30 mg QAM PO 04/14/17 09:00 05/14/17 08:59 04/18/17 09:34 30 MG Cyanocobalamin (Vitamin B-12 Tab) 1,000 mcg QAM PO 04/14/17 09:00 05/14/17 08:59 04/18/17 09:35 1,000 MCG Diclofenac Sodium (Voltaren 1% Top Gel) 1 appln QID EXT 04/13/17 17:00 05/13/17 16:59 04/18/17 14:48 1 APPLN Gabapentin (Neurontin Cap) 300 mg BID PO 04/13/17 21:00 05/13/17 20:59 04/18/17 09:35 300 MG Levothyroxine Sodium (Synthroid Tab) 88 mcg DAILYBB PO 04/14/17 06:00 05/14/17 05:59 04/18/17 06:12 88 MCG Lorazepam (Ativan Tab) 0.5 mg HS PO 04/13/17 21:00 05/13/17 20:59 04/17/17 21:27 0.5 MG Midodrine (Proamatine Tab) 2.5 mg TID@0800,1200,1800 PO 04/13/17 21:00 05/13/17 20:59 04/18/17 12:01 2.5 MG Ropinirole HCl (Requip Tab) 0.5 mg HS PRN PO 04/13/17 16:15 05/13/17 16:14 04/14/17 08:41 0.5 MG Simvastatin (Zocor Tab) 20 mg HS PO 04/13/17 21:00 05/13/17 20:59 04/17/17 21:17 20 MG Tiotropium [place] (Spiriva Handihaler Inhaler) 1 puff DAILY INH 04/14/17 09:00 05/14/17 08:59 04/18/17 10:28 1 PUFF Tramadol HCl (Ultram Tab) 50 mg TID PO 04/13/17 21:00 05/13/17 20:59 04/18/17 14:47 50 MG Albuterol/ Ipratropium (Duoneb) 3 ml QIDR INH 04/13/17 20:00 05/13/17 19:59 04/18/17 11:09 3 ML Heparin Sodium (Porcine) (Heparin Sq 5000 Unit/0.5ml) 5,000 unit Q8 SQ 04/13/17 22:00 05/13/17 21:59 04/18/17 14:50 5,000 UNIT Furosemide 20 mg/ Syringe 2 ml @ 4 mls/min BID IV 04/14/17 09:00 8/27/17 08:59 Future Hold 04/17/17 09:17 4 MLS/MIN Lactobacillus Acidophilus (Lactinex Granules Pack) 1 gm TIDM PO 04/14/17 07:30 05/14/17 07:29 Future hold 04/18/17 12:01 1 GM Non-Formulary Medication (Non-Formulary Patient'S Own Med) 1 ea QID XX 04/15/17 21:00 05/15/17 20:59 04/18/17 14:47 1 EA Sodium Chloride 250 ml @ 999 mls/hr Q16M PRN IV 04/17/17 12:09 05/17/17 12:08 Atropine Sulfate (Atropine Sulfate 0.1MG/Ml Inj) 0.6 mg PRN PRN IV 04/17/17 12:15 05/17/17 12:14 Spironolactone (Aldactone Tab) 25 mg BID17 PO 04/18/17 17:00 05/18/17 16:59 Torsemide (Demadex Tab) 20 mg DAILY PO 04/19/17 08:00 05/19/17 08:59 Prednisone (PredniSONE TAB) 30 mg DAILY PO 04/18/17 10:00 05/18/17 09:59 04/18/17 12:01 30 MG Levofloxacin (Levaquin Tab) 500 mg DAILY@1100 PO 04/18/17 13:30 04/28/17 10:59 04/18/17 14:47 500 MG Vital Signs: Date Time Temp Pulse Resp B/P (MAP) Pulse Ox O2 Delivery O2 Flow Rate FiO2 04/18/17 12:59 36.7 72 16 95 2.0 04/18/17 12:01 36.7 72 16 99/52 (68) 95 04/18/17 12:00 Nasal Cannula 2.0 04/18/17 11:09 101 15 91 Nasal Cannula 2.0 04/18/17 08:23 36.8 74 18 124/63 (83) 96 04/18/17 08:00 Nasal Cannula 2.0 04/18/17 07:13 96 15 95 Nasal Cannula 2.0 04/18/17 04:00 BiPAP 2.0 04/18/17 03:51 37.1 99 19 128/80 (96) 94 Nasal Cannula 2.0 04/17/17 23:59 94 94 2.0 04/17/17 23:59 94 16 94 BiPAP 2.0 04/17/17 23:59 BiPAP 2.0 04/17/17 23:31 37.2 101 20 133/78 (96) 95 Nasal Cannula 2.0 04/17/17 20:00 Nasal Cannula 2.0 04/17/17 19:47 37.1 100 20 118/76 (90) 92 Nasal Cannula 2.5 04/17/17 17:15 105 121/70 (87) 95 04/17/17 16:17 92 18 95 Nasal Cannula 2.0 04/17/17 16:15 97 18 120/79 (93) 97 Nasal Cannula 2.0 04/17/17 16:00 Nasal Cannula 3.0 Laboratory Results: Last 24 Hours Test 04/17/17 18:05 04/18/17 06:29 04/18/17 11:22 White Blood Count 9.03 K/uL 9.04 K/uL Red Blood Count 3.79 M/uL 3.69 M/uL Hemoglobin 11.9 g/dL 11.8 g/dL Hematocrit 36.6 % 35.9 % Mean Corpuscular Volume 96.6 fL 97.3 fL Mean Corpuscular Hemoglobin 31.4 pg 32.0 pg Mean Corpuscular Hemoglobin Concent 32.5 g/dl 32.9 g/dl RDW Standard Deviation 60.0 fL 62.7 fL RDW Coefficient of Variation 17.1 % 17.5 % Platelet Count 152 K/uL 162 K/uL Mean Platelet Volume 9.6 fL 9.9 fL Nucleated RBC Absolute Count (auto) 0.02 K/uL 0.06 K/uL Nucleated Red Blood Cells % 0.2 % 0.6 % Sodium Level 138 mmol/L Potassium Level 3.3 mmol/L Chloride Level 95 mmol/L Carbon Dioxide Level 35 mmol/L Anion Gap 8.0 mmol/L Blood Urea Nitrogen 26 mg/dl Creatinine 1.30 mg/dl Est Creatinine Clear Calc Drug Dose 38.1 ml/min Estimated GFR () 44.9 Estimated GFR (Non- 38.7 BUN/Creatinine Ratio 20.1 Random Glucose 112 mg/dl Calcium Level 8.3 mg/dl Bedside Glucose 174 mg/dl
[2017-04-18] MEDS: SPIRONOLACTONE 25 MG TAB PO SCH (17:11)
[2017-04-18] MEDS: SIMVASTATIN 20 MG TAB PO SCH (20:11)
[2017-04-18] MEDS ORDERED: LEVOFLOXACIN 750 MG TAB PO SCH (21:00)
[2017-04-18] MEDS: LORAZEPAM 0.5 MG TAB PO SCH (21:41)
[2017-04-19] VITALS (8 sets, daily range): BP systolic 133–167; BP diastolic 83–91; PULSE 90–116; TEMP 36.6–36.8; O2SAT 92–97
[2017-04-19] MEDS: LEVOTHYROXINE 88 MCG TAB PO SCH (06:18)
[2017-04-19] MEDS: HEPARIN SOD 5000 UNIT/0.5 ML CARP SQ SCH ×3 (06:20→20:44)
[2017-04-19] MEDS: ALBUT/IPRATROP 3MG/0.5MG NEB 3 ML VIAL INH SCH ×4 (07:13→19:31)
[2017-04-19 08:08] LABS: HEMATOCRIT 33.5 % (37-47); MEAN CELL VOLUME 96.5 fL (80-100); MEAN CORPUSCULAR HEMOGLOBIN 32.3 pg (25-34); MEAN CORPUSCULAR HGB CONC 33.4 g/dl (32-36); MEAN PLATELET VOLUME 10.3 fL (7.4-10.4); PLATELET COUNT 153 K/uL (130-400); RED BLOOD COUNT 3.47 M/uL (4.2-5.4); WHITE BLOOD COUNT 8.56 K/uL (4.8-10.8)
[2017-04-19] MEDS: DICLOFENAC SOD 1% GEL 100 GM TUBE EXT SCH ×4 (08:24→20:35)
[2017-04-19] MEDS: GABAPENTIN 300 MG CAP PO SCH ×2 (08:25→20:36)
[2017-04-19] MEDS: LACTOBACILLUS ACIDOPHILUS 1 GM PACK PO SCH ×3 (08:25→17:05)
[2017-04-19] MEDS: TORSEMIDE 20 MG TAB PO SCH (08:25)
[2017-04-19] MEDS: MIDODRINE 2.5 MG TAB PO SCH ×3 (08:25→17:06)
[2017-04-19] MEDS: CYANOCOBALAMIN 500 MCG TAB (VIT B-12) PO SCH (08:25)
[2017-04-19] MEDS: TRAMADOL HCL 50 MG TAB PO SCH ×3 (08:25→20:36)
[2017-04-19] MEDS: TIOTROPIUM BROMIDE 5 PUFF/90 MCG INH INH SCH (08:25)
[2017-04-19] MEDS: CITALOPRAM 20 MG TAB PO SCH (08:26)
[2017-04-19] MEDS: [UNRECOGNIZED DRUG - OTHER] XX SCH ×4 (08:27→20:37)
[2017-04-19] MEDS: SPIRONOLACTONE 25 MG TAB PO SCH ×2 (08:28→17:05)
[2017-04-19 08:45] LABS: CALCIUM 8.5 mg/dl (8.5-10.1); CREATININE 1.3 mg/dl (0.60-1.20); POTASSIUM 3.4 mmol/L (3.5-5.1)
[2017-04-19] MEDS ORDERED: GENTAMICIN CONSULT ACTIVE PRN (08:45)
[2017-04-19] MEDS ORDERED: GENTAMICIN IV SCH (09:30)
[2017-04-19] MEDS ORDERED: DEXTROSE 5% IV SCH (09:30)
[2017-04-19] MEDS ORDERED: POTASSIUM CHLORIDE 10 MEQ TABCR PO STA (11:26)
[2017-04-19] MEDS ORDERED: FERR324T PO (11:29)
--- NOTE | 2017-04-19 11:48 | Pharmacy Progress Note ---
Pharmacy Abx Initial Consult Date of Service Apr 19, 2017. Pharmacy Dosing Scope Date of Consult: 04/19/17 Consultation requested by: Dr. Corral Pharmacy is consulted to initiate Gentamicin IV dosing therapy, order appropriate labs and adjust drug dose/frequency. Subjective The patient is a 82 year old female admitted on Apr 13, 2017 at 13:52. Objective Height (Feet): 5 Height (Inches): 2.00 Weight (Kilograms): 99.500 Vital Signs (Past 12Hrs) Vital Signs Past 12 Hours Date Time Temp Pulse Resp B/P (MAP) Pulse Ox O2 Delivery O2 Flow Rate FiO2 04/19/17 11:15 95 16 97 Nasal Cannula 2.0 04/19/17 08:00 Nasal Cannula 2.0 04/19/17 07:15 90 16 96 Nasal Cannula 2.0 04/19/17 07:10 36.6 92 20 167/91 (116) 94 04/19/17 01:25 Nasal Cannula 2.0 04/18/17 23:41 37.0 96 20 145/83 (103) 96 BiPAP Lab Results (24Hrs) Laboratory Tests (24 Hours) Test 04/19/17 07:43 White Blood Count 8.56 K/uL (4.8-10.8) Micro Results Date/Time Source Procedure Growth Status 04/13/17 00:00 Nasal MRSA DNA Surveillance Screen - Final Specimen Positive for MRSA by DNA Probe Complete 04/17/17 00:00 Skin Leg Right Lower Gram Stain - Final Resulted 04/17/17 00:00 Wound Culture - Preliminary Pseudomonas Aeruginosa Resulted Risk Factors for Resistance * Hospitalization for 48 hours or more within the past 90 days; - for acute resp. 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 aeruginosa (resistant to fluoroquinolones & aztreonam , intermediate to cefepime) * Levaquin PO has been discontinued * per discussion with MD, once daily agent desired for discharge (in the event that she does not agree to rehab facility) * pt meets criteria for aminoglycoside extended-interval dosing, however, accumulation of drug is possible due to h/o CKD Plan Start Gentamicin IV for treatment of P. aeruginosa cellulitis Gentamicin * Patient meets criteria for extended-interval aminoglycoside dosing per the [place] nomogram * Dose: 480 mg (7 mg/kg) IV every 48 hours * Dosage based on adjusted body weight for patients weighing > 120% of ideal body weight. * Random level ordered for 6-14 hours after the start of the infusion to ensure dosing interval is appropriate. Pharmacy will continue to follow and will adjust dose/frequency as necessary. Thank you.
[2017-04-19] MEDS ORDERED: CITALOPRAM 20 MG TAB PO ONE (12:00)
--- NOTE | 2017-04-19 12:52 | Family Medicine Progress Note ---
Progress Note Date of Service Apr 19, 2017. Subjective Pt evaluation today including: conversation w/ patient, conversation w/ family (daughter), physical exam, chart review, lab review Pain: Denies Voiding: no voiding problems, no incontinence No complaints at this time States that she feels she can manage at home No issues overnight Noted that 3-person assist required to help patient ambulate Constitutional: No fever, No chills, No sweats, No weight loss Eyes: No worsening of vision, No eye pain, No redness ENT: No hearing loss, No nasal symptoms, No sore throat Respiratory: + shortness of breath (stable), No cough, No sputum, No wheezing Cardiovascular: No chest pain, No PND, No palpitations Abdomen: No pain, No nausea, No vomiting, No diarrhea, No constipation Musculoskeletal: + calf pain (bilateral calf pain, long-standing per patient and unchanged), No joint pain, No muscle pain Female : No dysuria, No urinary frequency Neurologic: No weakness, No numbness/tingling, No vertigo Psychiatric: No depression symptoms, No anhedonism, No anxiety Skin: + rash, + new/changing skin lesions, + color change Medications Current Inpatient Medications Medications (Trade) Dose Ordered Sig/Natasha Route Start Time Stop Time Status Last Admin Dose Admin Acetaminophen (Tylenol Tab) 650 mg Q4H PRN PO 04/13/17 15:30 05/13/17 15:29 04/18/17 15:54 650 MG Al Hydrox/Mg Hydrox/Simethicone (Maalox Max Susp) 15 ml Q4H PRN PO 04/13/17 15:30 05/13/17 15:29 04/19/17 12:18 15 ML Magnesium Hydroxide (Milk Of Magnesia Susp) 30 ml Q12H PRN PO 04/13/17 15:30 05/13/17 15:29 Ondansetron HCl (Zofran Inj) 4 mg Q6H PRN IV 04/13/17 15:30 05/13/17 15:29 Nitroglycerin (Nitrostat Tab) 0.4 mg UD PRN SL 04/13/17 15:30 05/13/17 15:29 Polyethylene (Miralax Powder Packet) 17 gm DAILY PRN PO 04/13/17 15:30 05/13/17 15:29 Cyanocobalamin (Vitamin B-12 Tab) 1,000 mcg QAM PO 04/14/17 09:00 05/14/17 08:59 04/19/17 08:25 1,000 MCG Diclofenac Sodium (Voltaren 1% Top Gel) 1 appln QID EXT 04/13/17 17:00 05/13/17 16:59 04/19/17 12:19 1 APPLN Gabapentin (Neurontin Cap) 300 mg BID PO 04/13/17 21:00 05/13/17 20:59 04/19/17 08:25 300 MG Levothyroxine Sodium (Synthroid Tab) 88 mcg DAILYBB PO 04/14/17 06:00 05/14/17 05:59 04/19/17 06:18 88 MCG Lorazepam (Ativan Tab) 0.5 mg HS PO 04/13/17 21:00 05/13/17 20:59 04/18/17 21:41 0.5 MG Midodrine (Proamatine Tab) 2.5 mg TID@0800,1200,1800 PO 04/13/17 21:00 05/13/17 20:59 04/19/17 12:22 2.5 MG Ropinirole HCl (Requip Tab) 0.5 mg HS PRN PO 04/13/17 16:15 05/13/17 16:14 04/14/17 08:41 0.5 MG Simvastatin (Zocor Tab) 20 mg HS PO 04/13/17 21:00 05/13/17 20:59 04/18/17 20:11 20 MG Tiotropium [place] (Spiriva Handihaler Inhaler) 1 puff DAILY INH 04/14/17 09:00 05/14/17 08:59 04/19/17 08:25 1 PUFF Tramadol HCl (Ultram Tab) 50 mg TID PO 04/13/17 21:00 05/13/17 20:59 04/19/17 08:25 50 MG Albuterol/ Ipratropium (Duoneb) 3 ml QIDR INH 04/13/17 20:00 05/13/17 19:59 04/19/17 11:09 3 ML Heparin Sodium (Porcine) (Heparin Sq 5000 Unit/0.5ml) 5,000 unit Q8 SQ 04/13/17 22:00 05/13/17 21:59 04/19/17 06:20 5,000 UNIT Furosemide 20 mg/ Syringe 2 ml @ 4 mls/min BID IV 04/14/17 09:00 05/14/17 08:59 Future Hold 04/17/17 09:17 4 MLS/MIN Lactobacillus Acidophilus (Lactinex Granules Pack) 1 gm TIDM PO 04/14/17 07:30 05/14/17 07:29 Future hold 04/19/17 12:20 1 GM Non-Formulary Medication (Non-Formulary Patient'S Own Med) 1 ea QID XX 04/15/17 21:00 05/15/17 20:59 04/19/17 12:20 1 EA Sodium Chloride 250 ml @ 999 mls/hr Q16M PRN IV 04/17/17 12:09 05/17/17 12:08 Atropine Sulfate (Atropine Sulfate 0.1MG/Ml Inj) 0.6 mg PRN PRN IV 04/17/17 12:15 05/17/17 12:14 Spironolactone (Aldactone Tab) 25 mg BID17 PO 04/18/17 17:00 05/18/17 16:59 04/19/17 08:28 25 MG Torsemide (Demadex Tab) 20 mg DAILY PO 04/19/17 08:00 05/19/17 08:59 04/19/17 08:25 20 MG Prednisone (PredniSONE TAB) 30 mg DAILY PO 04/18/17 10:00 05/18/17 09:59 04/19/17 08:25 30 MG Gentamicin Sulfate (Consult) 1 ea UD PRN N/A 04/19/17 08:45 05/19/17 08:44 Gentamicin Sulfate 480 mg/ Dextrose 112 ml @ 100 mls/hr Q48H IV 04/19/17 09:30 04/26/17 09:29 04/19/17 10:21 100 MLS/HR Citalopram Hydrobromide (celeXA TAB) 40 mg QAM PO 04/20/17 08:00 05/14/17 08:59 Objective Physical Exam General Appearance: WD/WN, no apparent distress Eyes: normal inspection, EOMI ENT: hearing grossly normal, pharynx normal Neck: supple, no adenopathy, no JVD Respiratory/Chest: lungs clear, no accessory muscle use, + pertinent finding ( 2L Nasal cannula) Cardiovascular: regular rate, rhythm, no gallop, no murmur Abdomen: normal bowel sounds, non tender, soft Extremities: non-tender, no pedal edema Neurologic/Psychiatric: alert, normal mood/affect, oriented x 3 Skin: normal color, warm/dry, no rash Lymphatic: no adenopathy Laboratory Results Last 24 Hours Test 04/19/17 07:43 White Blood Count 8.56 K/uL Red Blood Count 3.47 M/uL Hemoglobin 11.2 g/dL Hematocrit 33.5 % Mean Corpuscular Volume 96.5 fL Mean Corpuscular Hemoglobin 32.3 pg Mean Corpuscular Hemoglobin Concent 33.4 g/dl RDW Standard Deviation 59.4 fL RDW Coefficient of Variation 17.0 % Platelet Count 153 K/uL Mean Platelet Volume 10.3 fL Nucleated RBC Absolute Count (auto) 0.05 K/uL Nucleated Red Blood Cells % 0.5 % Sodium Level 137 mmol/L Potassium Level 3.4 mmol/L Chloride Level 98 mmol/L Carbon Dioxide Level 32 mmol/L Anion Gap 7.0 mmol/L Blood Urea Nitrogen 22 mg/dl Creatinine 1.30 mg/dl Est Creatinine Clear Calc Drug Dose 38.1 ml/min Estimated GFR () 44.9 Estimated GFR (Non- 38.7 BUN/Creatinine Ratio 17.0 Random Glucose 166 mg/dl Calcium Level 8.5 mg/dl Assessment and Plan 82 year old female with acute on chronic SOB. Our plan for her is as follows: Shortness of breath - Appears to be chronic, with recent exacerbation - Currently on 2 L NC, at baseline - Right heart catheterization negative for elevated pressures; effectively normal BNPs, objective making CHF unlikely as a an etiology - V/Q scan low probability for PE - Likely cause is multifactorial --> diaphragmatic hemiparesis + asthma + obesity + deconditioning-related hypoventilation - Continue Duoneb and Spiriva - Continue Prednisone de-escalation: drop to 20 mg (chronic dose), starting tomorrow - Will discontinue treatment for PNA at this time - Currently back on home doses of Torsemide and Spironolactone Pre-renal azotemia - Cr stable at 1.3; baseline 1.0-1.1 - Encourage PO hydration; monitor daily labs Hypokalemia - K 3.4 today - Repleted with addition 40 mEq PO KCl with chronic daily KCl supplementation Prolonged QTc - QTc 444 today Orthostatic Hypotension - From adrenal suppression sec to chronic steroid use; continue Midodrine - In conjunction with severe SOB, this may greatly affect her ability to ambulate out of hospital and risk for poor inspiratory effort Right [place] Cellulitis - History of MRSA - Wound culture positive for Pseudomonas, resistant to quinolones BUT clinically [place] wound appears much better than 48 hours ago - 1 dose IV Gentamycin given but given good clinical appearance, will D/C antibiotics at this time to prevent C.diff and nephrotoxicity Old rib fractures - no falls. patient reports getting fractures if leans onto anything - likely with significant osteopenia sec to chronic steroid use. Anemia - iron studies negative. daughter reports patient has been on iron replacement - continued Depression - Continue Citalopram; dose increased today Hypothyroidism - Continue Levothyroxine Restless Leg - Continue Requip Code Status - Level I Full Code DVT Prophylaxis - Heparin 5000 units TID Disposition - OT/PT evaluate and treat - Med/Surg - After discussion, the patient is amenable to temporary rehabilitation stay. Daughter agreeable to this as long as her mother is. Discussed with case management who will start process. Continued [facility] stay due to: ambulation difficulties Discharge planning: uncertain Reviewed: Pt Seen/Exam by Me History feels weak Constitutional: denies: fever Respiratory: negative: short of breath Gastrointestinal/Abdominal: negative: abdominal pain General Appearance: no apparent distress Respiratory: lungs clear, no respiratory distress Cardiovascular: regular rate, rhythm Neurologic/Psychiatric: alert, oriented x 3, other (flat affect) Skin Characteristics: other (right [place] ulcer much improved since admission) Assessment/Plan Resident Physician Supervision Note: I was present with Dr. Corral in bedside. I verified the alexander history and physical, reviewed labs and image studies, discussed the case with the resident and agree with the findings and care plan.
[2017-04-19] MEDS ORDERED: VANCOMYCIN 1GM/270ML NSS IV STA (14:02)
--- NOTE | 2017-04-19 14:04 | Progress Note ---
Progress Note Date of Service Apr 19, 2017. Progress Note ID Consult Dictated #[id number] A/P: 1. RLE ulcer - pseudomonas and gpc (h/o MRSA) 2. Leukocytosis - improving -Will change gent to imipenem, add vanco x 1 pending ID gpc from wound culture -Continue local care -Will follow. thank you
--- NOTE | 2017-04-19 14:25 | INFECT. DISEASE CONSULTATION ---
DATE OF CONSULTATION: 04/19/2017 HISTORY OF PRESENT ILLNESS: This is an 82-year-old female who was admitted from pulmonary office for worsening shortness of breath and bilateral lower extremity edema. She has been followed by pulmonary as well as cardiology here. She did undergo a cardiac catheterization. She does have a known history of right lower extremity ulceration which her family member states has been present for some weeks. It was doing well at home until it was scratched by the dog. In the Emergency Room, this was cultured and is growing pseudomonas and gram-positive cocci which is yet to be identified. She was placed today on IV gentamicin. She did have an episode of vomiting prior to my examination, which is a new finding for her. She currently denies any chest pain, cough, shortness of breath, nausea or diarrhea, but she did recently have an episode of vomiting earlier in the day. She denies any abdominal pain. She has no urinary symptoms. She denies any pain in the lower extremity. Her family members states that she has had minimal drainage. She previously was being followed at the wound care center, but this has been many years ago for history of MRSA. Her remaining review of systems is unremarkable. PAST MEDICAL HISTORY: Significant for congestive heart failure, asthma, diaphragmatic paralysis, GERD, thyroid cancer, anxiety, chronic pain, chronic kidney disease, hypothyroidism and hyperlipidemia. FAMILY HISTORY: Noncontributory. SOCIAL HISTORY: Negative for tobacco use, alcohol use or drug use. She lives with family. She denies any recent sick contacts. ALLERGIES: SHE HAS MULTIPLE ALLERGIES INCLUDING ERYTHROMYCIN, ADHESIVE TAPE, FLAGYL, POLYMYXIN B, SALICYLATE, SULFA ANTIBIOTICS, TETRACYCLINES, MORPHINE, DILTIAZEM, REGLAN AND BACITRACIN. CURRENT MEDICATIONS: Include Celexa, gentamicin, Demadex, Aldactone, prednisone, atropine, vitamin B12, Spiriva, probiotic, Synthroid, subQ heparin, Neurontin, Ativan, midodrine, Zocor, Ultram, DuoNebs, Voltaren gel, Requip, Tylenol, Maalox, milk of magnesia, Zofran and MiraLax. PHYSICAL EXAMINATION: VITAL SIGNS: She has been afebrile since admission to the hospital. Pulse of 95, respiratory rate is 16, blood pressure is 167/91, oxygen saturation is 97% on room air. GENERAL: She is awake, alert and oriented. She is somewhat lethargic after an episode of vomiting but appropriate. HEENT: Extraocular muscles are intact. Mucous membranes are moist. HEART: Regular. LUNGS: Clear bilaterally with poor inspiratory effort. ABDOMEN: Soft, nontender, nondistended. EXTREMITIES: There is no lower extremity edema. There are chronic changes to the skin with bilateral lower extremities, a right lateral calf ulceration is noted. There is no surrounding warmth, induration, edema, erythema or drainage. ASSESSMENT AND PLAN: Right calf ulceration with pseudomonas and gram-positive cocci. At this time, I will transition her from gentamicin to imipenem. She will also receive a 1 time dose of vancomycin today pending the results of her wound culture with identification of the gram-positive cocci. She does have a history of methicillin-resistant staphylococcus aureus in the past. There are no oral options for treating the pseudomonas, but hopefully, she will complete a course while hospitalized. She will need continued wound care while in the hospital. We will follow along with you. Thank you for this consultation.
[2017-04-19] MEDS ORDERED: IMIPENEM/CILASTATIN IV 300 MG in DEXTROSE 5% 100ML 100 ML IV SCH (15:00)
[2017-04-19] MEDS ORDERED: IMIPENEM/CILASTATIN CONSULT ACTIVE PRN (15:30)
[2017-04-19] MEDS ORDERED: VANCOMYCIN INJ 2,500 MG in SODIUM CHLORIDE 0.9% 500ML 500 ML IV SCH (16:00)
[2017-04-19] MEDS: LORAZEPAM 0.5 MG TAB PO SCH (20:37)
[2017-04-19] MEDS: SIMVASTATIN 20 MG TAB PO SCH (20:37)
[2017-04-20] VITALS (9 sets, daily range): BP systolic 151–169; BP diastolic 72–91; PULSE 96–106; TEMP 36.4–36.7; O2SAT 92–98
[2017-04-20] MEDS ORDERED: MICONAZOLE NITRATE POWDER 43 GM EXT PRN (05:15)
[2017-04-20] MEDS: LEVOTHYROXINE 88 MCG TAB PO SCH (06:45)
[2017-04-20] MEDS: HEPARIN SOD 5000 UNIT/0.5 ML CARP SQ SCH ×3 (06:46→22:08)
[2017-04-20 07:38] LABS: HEMATOCRIT 35.2 % (37-47); MEAN CELL VOLUME 98.6 fL (80-100); MEAN CORPUSCULAR HEMOGLOBIN 31.7 pg (25-34); MEAN CORPUSCULAR HGB CONC 32.1 g/dl (32-36); MEAN PLATELET VOLUME 10.4 fL (7.4-10.4); PLATELET COUNT 193 K/uL (130-400); RED BLOOD COUNT 3.57 M/uL (4.2-5.4); WHITE BLOOD COUNT 9.43 K/uL (4.8-10.8)
[2017-04-20] MEDS: ALBUT/IPRATROP 3MG/0.5MG NEB 3 ML VIAL INH SCH ×4 (07:45→19:29)
[2017-04-20 08:07] LABS: BUN/CREATININE RATIO 16.5 (10-20); CALCIUM 8.5 mg/dl (8.5-10.1); CREATININE 1.3 mg/dl (0.60-1.20)
[2017-04-20] MEDS: LACTOBACILLUS ACIDOPHILUS 1 GM PACK PO SCH ×3 (08:14→17:41)
[2017-04-20] MEDS: SPIRONOLACTONE 25 MG TAB PO SCH ×2 (08:14→17:41)
[2017-04-20] MEDS: TRAMADOL HCL 50 MG TAB PO SCH ×3 (08:14→20:26)
[2017-04-20] MEDS: DICLOFENAC SOD 1% GEL 100 GM TUBE EXT SCH ×4 (08:15→20:27)
[2017-04-20] MEDS: [UNRECOGNIZED DRUG - OTHER] XX SCH ×4 (08:15→20:28)
[2017-04-20] MEDS: TORSEMIDE 20 MG TAB PO SCH (08:16)
[2017-04-20] MEDS: MIDODRINE 2.5 MG TAB PO SCH ×3 (08:16→17:41)
[2017-04-20] MEDS: CYANOCOBALAMIN 500 MCG TAB (VIT B-12) PO SCH (08:16)
[2017-04-20] MEDS: GABAPENTIN 300 MG CAP PO SCH ×2 (08:17→20:27)
[2017-04-20] MEDS: CITALOPRAM 20 MG TAB PO SCH (08:17)
[2017-04-20] MEDS: TIOTROPIUM BROMIDE 5 PUFF/90 MCG INH INH SCH (08:40)
[2017-04-20] MEDS: IMIPENEM/CILASTATIN IV 300 MG in DEXTROSE 5% 100ML 100 ML IV SCH ×3 (09:53→22:07)
[2017-04-20] MEDS ORDERED: VANCOMYCIN INJ 2,500 MG in SODIUM CHLORIDE 0.9% 500ML 500 ML IV SCH (10:00)
--- NOTE | 2017-04-20 10:55 | Family Medicine Progress Note ---
Progress Note Date of Service Apr 20, 2017. Subjective Pt evaluation today including: conversation w/ patient, physical exam, chart review, lab review Pain: None Voiding: no voiding problems Patient doing well at this time Breathing is stable, no new issues overnight Still amenable to rehabilitation but frustrated that she is still in the hospital Eating and drinking well Right [place] ulcer seems stable Constitutional: No fever, No chills, No sweats Eyes: No worsening of vision, No redness, No discharge ENT: No unusual epistaxis, No nasal symptoms, No sore throat Respiratory: + shortness of breath (baseline), No cough, No sputum Cardiovascular: No chest pain, No claudication, No palpitations Abdomen: No pain, No nausea, No vomiting, No diarrhea, No constipation Musculoskeletal: No joint pain, No muscle pain Female : No dysuria, No urinary frequency Neurologic: No weakness, No numbness/tingling, No vertigo Psychiatric: No anxiety, No insomnia Heme: No abnormal bleeding/bruising, No clotting problems, No swollen lymph nodes Skin: No rash, No new/changing skin lesions, No color change Medications Current Inpatient Medications Medications (Trade) Dose Ordered Sig/Natasha Route Start Time Stop Time Status Last Admin Dose Admin Acetaminophen (Tylenol Tab) 650 mg Q4H PRN PO 04/13/17 15:30 05/13/17 15:29 04/18/17 15:54 650 MG Al Hydrox/Mg Hydrox/Simethicone (Maalox Max Susp) 15 ml Q4H PRN PO 04/13/17 15:30 05/13/17 15:29 04/19/17 12:18 15 ML Magnesium Hydroxide (Milk Of Magnesia Susp) 30 ml Q12H PRN PO 04/13/17 15:30 05/13/17 15:29 Ondansetron HCl (Zofran Inj) 4 mg Q6H PRN IV 04/13/17 15:30 05/13/17 15:29 Nitroglycerin (Nitrostat Tab) 0.4 mg UD PRN SL 04/13/17 15:30 05/13/17 15:29 Polyethylene (Miralax Powder Packet) 17 gm DAILY PRN PO 04/13/17 15:30 05/13/17 15:29 Cyanocobalamin (Vitamin B-12 Tab) 1,000 mcg QAM PO 04/14/17 09:00 05/14/17 08:59 04/20/17 08:16 1,000 MCG Diclofenac Sodium (Voltaren 1% Top Gel) 1 appln QID EXT 04/13/17 17:00 05/13/17 16:59 04/20/17 08:15 1 APPLN Gabapentin (Neurontin Cap) 300 mg BID PO 04/13/17 21:00 05/13/17 20:59 04/20/17 08:17 300 MG Levothyroxine Sodium (Synthroid Tab) 88 mcg DAILYBB PO 04/14/17 06:00 05/14/17 05:59 04/20/17 06:45 88 MCG Lorazepam (Ativan Tab) 0.5 mg HS PO 04/13/17 21:00 05/13/17 20:59 04/19/17 20:37 0.5 MG Midodrine (Proamatine Tab) 2.5 mg TID@0800,1200,1800 PO 04/13/17 21:00 05/13/17 20:59 04/20/17 08:16 2.5 MG Ropinirole HCl (Requip Tab) 0.5 mg HS PRN PO 04/13/17 16:15 05/13/17 16:14 04/14/17 08:41 0.5 MG Simvastatin (Zocor Tab) 20 mg HS PO 04/13/17 21:00 05/13/17 20:59 04/19/17 20:37 20 MG Tiotropium [place] (Spiriva Handihaler Inhaler) 1 puff DAILY INH 04/14/17 09:00 05/14/17 08:59 04/20/17 08:40 1 PUFF Tramadol HCl (Ultram Tab) 50 mg TID PO 04/13/17 21:00 05/13/17 20:59 04/20/17 08:14 50 MG Albuterol/ Ipratropium (Duoneb) 3 ml QIDR INH 04/13/17 20:00 05/13/17 19:59 04/20/17 07:45 3 ML Heparin Sodium (Porcine) (Heparin Sq 5000 Unit/0.5ml) 5,000 unit Q8 SQ 04/13/17 22:00 05/13/17 21:59 04/20/17 06:46 5,000 UNIT Furosemide 20 mg/ Syringe 2 ml @ 4 mls/min BID IV 04/14/17 09:00 05/14/17 08:59 Future Hold 04/17/17 09:17 4 MLS/MIN Lactobacillus Acidophilus (Lactinex Granules Pack) 1 gm TIDM PO 04/14/17 07:30 05/14/17 07:29 Future hold 04/20/17 08:14 1 GM Non-Formulary Medication (Non-Formulary Patient'S Own Med) 1 ea QID XX 04/15/17 21:00 05/15/17 20:59 04/20/17 08:15 1 EA Sodium Chloride 250 ml @ 999 mls/hr Q16M PRN IV 04/17/17 12:09 05/17/17 12:08 Atropine Sulfate (Atropine Sulfate 0.1MG/Ml Inj) 0.6 mg PRN PRN IV 04/17/17 12:15 05/17/17 12:14 Spironolactone (Aldactone Tab) 25 mg BID17 PO 04/18/17 17:00 05/18/17 16:59 04/20/17 08:14 25 MG Torsemide (Demadex Tab) 20 mg DAILY PO 04/19/17 08:00 05/19/17 08:59 04/20/17 08:16 20 MG Citalopram Hydrobromide (celeXA TAB) 40 mg QAM PO 04/20/17 08:00 05/14/17 08:59 04/20/17 08:17 40 MG Imipenem/ Cilastatin Sodium (Consult) 1 ea UD PRN N/A 04/19/17 15:30 05/19/17 15:29 Miconazole Nitrate (Desenex Powder) 1 appln PRN PRN EXT 04/20/17 05:15 05/20/17 05:14 Prednisone (PredniSONE TAB) 20 mg DAILY PO 04/20/17 08:00 05/20/17 07:59 04/20/17 08:16 20 MG Imipenem/ Cilastatin Sodium 300 mg/Dextrose 106 ml @ 100 mls/hr Q6H IV 04/20/17 10:00 04/30/17 09:59 04/20/17 09:53 100 MLS/HR Vancomycin HCl 2500 mg/Sodium Chloride 550 ml @ 200 mls/hr 1000 IV 04/20/17 10:00 04/20/17 12:44 Objective Physical Exam General Appearance: WD/WN, no apparent distress Eyes: normal inspection, EOMI ENT: hearing grossly normal, pharynx normal Neck: supple, no adenopathy, no JVD Respiratory/Chest: lungs clear, no respiratory distress Cardiovascular: regular rate, rhythm, no gallop, no murmur Abdomen: normal bowel sounds, non tender, soft Extremities: non-tender, no pedal edema Neurologic/Psychiatric: alert, normal mood/affect, oriented x 3 Skin: normal color, warm/dry, no rash Lymphatic: no adenopathy Laboratory Results Last 24 Hours Test 04/20/17 07:09 White Blood Count 9.43 K/uL Red Blood Count 3.57 M/uL Hemoglobin 11.3 g/dL Hematocrit 35.2 % Mean Corpuscular Volume 98.6 fL Mean Corpuscular Hemoglobin 31.7 pg Mean Corpuscular Hemoglobin Concent 32.1 g/dl RDW Standard Deviation 60.9 fL RDW Coefficient of Variation 17.1 % Platelet Count 193 K/uL Mean Platelet Volume 10.4 fL Nucleated RBC Absolute Count (auto) 0.09 K/uL Nucleated Red Blood Cells % 1.0 % Sodium Level 134 mmol/L Potassium Level 4.0 mmol/L Chloride Level 95 mmol/L Carbon Dioxide Level 32 mmol/L Anion Gap 7.0 mmol/L Blood Urea Nitrogen 22 mg/dl Creatinine 1.30 mg/dl Est Creatinine Clear Calc Drug Dose 38.1 ml/min Estimated GFR () 44.9 Estimated GFR (Non- 38.7 BUN/Creatinine Ratio 16.5 Random Glucose 129 mg/dl Calcium Level 8.5 mg/dl Assessment and Plan 82 year old female with acute on chronic SOB. Our plan for her is as follows: Shortness of breath - Appears to be chronic, with recent exacerbation; currently on 2L NC Will require home sleep study which apparently has been arranged Will give prescription for pulmonary rehabilitation - Right heart catheterization negative for elevated pressures; effectively normal BNPs, objective making CHF unlikely as a an etiology - V/Q scan low probability for PE - Likely cause is multifactorial --> diaphragmatic hemiparesis + asthma + obesity + deconditioning-related hypoventilation - Continue Duoneb and Spiriva - Continue Prednisone; back on baseline dose of 20 mg Chronic Leg Edema - Currently back on home doses of Torsemide and Spironolactone; - consider resuming lymphedema clinic treatments. - discussed limiting salt. Pre-renal azotemia - Cr stable at 1.3; baseline 1.0-1.1 - Encourage PO hydration; monitor daily labs Hypokalemia Chronic - likely sec to diuretics - K improved to 4.0 after repletion yesterday Orthostatic Hypotension - From adrenal suppression sec to chronic steroid use; continue Midodrine - In conjunction with severe SOB, this may greatly affect her ability to ambulate out of hospital and risk for poor inspiratory effort Right [place] Cellulitis - History of MRSA - Wound culture positive for Pseudomonas, resistant to quinolones BUT clinically [place] wound appears much better than 48 hours ago - Single dose Gentamyin given; Discussed case with ID and we will have patient on Imipenem and Vancomycin until discharge Can be discontinue oziel discharged given relatively good clinical appearance of ulcer Old rib fractures - No falls. Patient reports getting fractures if leans onto anything - likely with significant osteopenia sec to chronic steroid use. Anemia - iron studies negative. daughter reports patient has been on iron replacement Depression - Increase Citalopram to 40 mg yesterday Hypothyroidism - Continue Levothyroxine Restless Leg - Continue Requip Code Status - Level I Full Code DVT Prophylaxis - Heparin 5000 units TID Disposition - OT/PT evaluate and treat - Med/Surg - After discussion, the patient is amenable to temporary rehabilitation stay. Daughter agreeable to this as long as her mother is. Discussed with case management who will start process. Continued [facility] stay due to: ambulation difficulties Discharge planning: home Reviewed: Pt Seen/Exam by Me History mood better looking forward to getting out of the hospital Constitutional: denies: fever Respiratory: negative: short of breath Cardiovascular: denies chest pain Gastrointestinal/Abdominal: negative: abdominal pain General Appearance: no apparent distress Respiratory: lungs clear, no respiratory distress Cardiovascular: regular rate, rhythm Neurologic/Psychiatric: alert, oriented x 3 Skin Characteristics: warm/dry Assessment/Plan Resident Physician Supervision Note: I was present with Dr. Corral in bedside. I verified the alexander history and physical, reviewed labs and image studies, discussed the case with the resident and agree with the findings and care plan.
[2017-04-20] MEDS: SIMVASTATIN 20 MG TAB PO SCH (20:28)
[2017-04-20] MEDS: LORAZEPAM 0.5 MG TAB PO SCH (20:28)
[2017-04-21 00:25] VITALS: PULSE 89; O2SAT 96
[2017-04-21] MEDS: IMIPENEM/CILASTATIN IV 300 MG in DEXTROSE 5% 100ML 100 ML IV SCH ×2 (04:45→10:13)
[2017-04-21] MEDS: LEVOTHYROXINE 88 MCG TAB PO SCH (06:11)
[2017-04-21] MEDS: HEPARIN SOD 5000 UNIT/0.5 ML CARP SQ SCH ×2 (06:14→13:38)
[2017-04-21 07:50] VITALS: BP 150/85; PULSE 88; TEMP 36.7; O2SAT 99
[2017-04-21] MEDS: TIOTROPIUM BROMIDE 5 PUFF/90 MCG INH INH SCH (08:02)
[2017-04-21] MEDS: TRAMADOL HCL 50 MG TAB PO SCH ×2 (08:02→13:37)
[2017-04-21] MEDS: [UNRECOGNIZED DRUG - OTHER] XX SCH ×2 (08:02→12:07)
[2017-04-21] MEDS: GABAPENTIN 300 MG CAP PO SCH (08:03)
[2017-04-21] MEDS: CYANOCOBALAMIN 500 MCG TAB (VIT B-12) PO SCH (08:03)
[2017-04-21] MEDS: LACTOBACILLUS ACIDOPHILUS 1 GM PACK PO SCH ×2 (08:03→12:06)
[2017-04-21] MEDS: TORSEMIDE 20 MG TAB PO SCH (08:03)
[2017-04-21] MEDS: SPIRONOLACTONE 25 MG TAB PO SCH (08:03)
[2017-04-21] MEDS: MIDODRINE 2.5 MG TAB PO SCH ×2 (08:03→12:07)
[2017-04-21] MEDS: CITALOPRAM 20 MG TAB PO SCH (08:03)
[2017-04-21] MEDS: DICLOFENAC SOD 1% GEL 100 GM TUBE EXT SCH ×2 (08:04→12:06)
[2017-04-21 08:21] LABS: BUN/CREATININE RATIO 19.6 (10-20); CALCIUM 8.3 mg/dl (8.5-10.1); CREATININE 1.2 mg/dl (0.60-1.20); POTASSIUM 3.5 mmol/L (3.5-5.1)
[2017-04-21] MEDS ORDERED: PRD10 PO (11:07)
[2017-04-21] MEDS ORDERED: CLX20 PO (11:07)
--- NOTE | 2017-04-21 11:18 | Discharge Instructions ---
Discharge Instructions Date of Service Apr 21, 2017. Admission Reason for Admission: Chf, Decomposation, Sob Discharge Discharge Diagnosis / Problem: Shortness of breath Discharge Goals Goal(s): Decrease discomfort, Improve function, Increase independence Activity Recommendations Activity Level: Assistance Required . Additional Information Patient informed of condition: Yes Advance Directives: Yes DNR: No Level of Care: Skilled Communicable Disease: No Prognosis: Stable Instructions / Follow-Up Instructions / Follow-Up With family physician and pulmonology after discharge from Skilled facility. Current Hospital Diet Patient's current hospital diet: AHA Diet (Heart Healthy), Low Sodium Diet (2gm Na) Discharge Diet Recommended Diet: Low Sodium Diet (2gm Na) Pending Studies Studies pending at discharge: no Physician Orders On Transfer Dressing Changes: right leg small ulcer - dressing change every 2-3 days. Additional Orders: Please have her keep her legs propped up when sedentary Laboratory Results Hemoglobin A1c Test 03/03/17 11:09 Range/Units Estimated Average Glucose 140 mg/dl Hemoglobin A1c 6.5 H 4.5-5.6 % Medical Emergencies . Who to Call and When: Medical Emergencies: If at any time you feel your situation is an emergency, please call 911 immediately. . Non-Emergent Contact Non-Emergency issues call your: Primary Care Provider . . "Provider Documentation" section prepared by Gia Salmeron. . Core Measure Problem Core Measures: None
[2017-04-21] MEDS: ALBUT/IPRATROP 3MG/0.5MG NEB 3 ML VIAL INH SCH ×2 (11:23→14:59)
[2017-04-21 11:24] VITALS: PULSE 99; O2SAT 94
[2017-04-21 14:59] VITALS: PULSE 97; O2SAT 94
[2017-04-21 15:54] VITALS: BP 150/85; PULSE 97; TEMP 36.7; O2SAT 94
--- NOTE | 2017-04-21 19:48 | Discharge Summary ---
Discharge Summary Date of Service Apr 21, 2017. (Leo Fitzgerald MD) Discharge Summary Admission Date: Apr 13, 2017 at 13:52 Discharge Date: Apr 21, 2017 Discharge Disposition: care home facility Principal Diagnosis: Shortness of breath Immunizations: Have You Had Influenza Vaccine: N/A Influenza Vaccine Date: Jun 18, 2012 History of Tetanus Vaccine?: Yes Tetanus Immunization Date: Mar 18, 2004 History of Pneumococcal: Yes Pneumococcal Date: May 31, 2010 History of Hepatitis B Vaccine: No Consultations: Pulmonology ID Cardiology (Leo Fitzgerald MD) Medication Reconciliation New Medications: Citalopram (Citalopram Hydrobromide) 20 Mg Tab 40 MG PO QAM for 30 Days, TAB Prednisone (Prednisone) 10 Mg Tab 20 MG PO DAILY for 15 Days, TAB 20mgs for 5 days, 10mgs for 5 days, 5mgs daily until seen by family physician/pulmonology to slowly wean and stop Continued Medications: Acetaminophen (Tylenol Arthritis Ext Rel) 650 Mg Cplt 650 MG PO Q4H PRN for Pain, CAP Calcium Carbonate (Calcium Carbonate) 1,250 Mg Tab 1 TAB PO DAILY Cholecalciferol (Vitamin D3) 1,000 Inter.unit Tab 2000 UNITS PO DAILY Cyanocobalamin (Vitamin B-12) 500 Mcg Tab 1000 MCG PO QAM, TAB Diclofenac Sodium (Topical) (Diclofenac Sodium) 1 % Gel 2 GM TD QID Ferrous Gluconate (Iron Supplement) 324 Mg Tab 324 MG PO BID for 30 Days, TAB Gabapentin (Neurontin) 300 Mg Cap 300 MG PO BID, CAP Ipratropium-Albuterol (Duoneb) 3 Ml Nebu 1 TREATMENT INH Q4H PRN for SOB/Wheezing, INHA Levothyroxine Sodium (Levothyroxine Sodium) 88 Mcg Tab 88 MCG PO DAILY for 90 Days, #90 TAB 3 Refills Lorazepam (Ativan) 0.5 Mg Tab 0.5 MG PO HS, TAB Melatonin (Melatonin) 10 Mg Tab 1 TAB PO HS Midodrine Hcl (Midodrine Hcl) 2.5 Mg Tab 1 TAB PO TID Polyethylene Glycol-Propylene (Systane) 1 Renetta Renetta 1 DROPS OPR QID, #30 ML 5 Refills Potassium Chloride (K-Tabs) 10 Meq Tabcr 2 TABS PO BID Prednisone (Prednisone Tab) 20 Mg Tab 0 PO DAILY, #7 TAB 2 TABS DAILY FOR 2 DAYS, THEN 1 TAB DAILY FOR 2 DAYS, THEN 1/2 TAB DAILY FOR 2 DAYS. Riboflavin (Riboflavin) 400 Mg Tab 1 TAB PO QAM Ropinirole (Requip) 0.25 Mg Tab 0.5 MG PO HS PRN for RESTLESS LEGS, TAB Simvastatin (Zocor) 20 Mg Tab 20 MG PO HS, TAB Spironolactone (Spironolactone) 25 Mg Tab 25 MG PO BID for 30 Days, #60 TAB Tiotropium [place] (Spiriva Handihaler) 30 Puff/540 Mcg Aerp 1 CAP INH DAILY, INHALER Torsemide (Demadex) 20 Mg Tab 20 MG PO, TAB Tramadol (Ultram) 50 Mg Tab 1 TAB PO TID for 30 Days, #90 TAB Discontinued Medications: Citalopram Hydrobromide (Celexa) 20 Mg Tab 30 MG PO QAM, TAB Hydrocodone/Homatropine (Hydromet) 1 Ml Syrp 1 DOSE PO DIRECTED PRN for Cough for 9 Days, ML Ipratropium-Albuterol (Combivent Respimat) 1 Aer Aer 1 PUFFS INH QID, INH Pseudoephedrine-Guaifenesin (Mucinex D) 1 Tab Tab 1 TAB PO BID for 10 Days, #20 TAB Tiotropium [place]-Olodaterol (Stiolto Respimat 2.5-2.5 Mcg/Act) 1 Aer Aer BID Discharge Exam feeling better this am Review of Systems: Constitutional: No fever Respiratory: No shortness of breath Cardiovascular: No chest pain Abdomen: No pain Physical Exam: General Appearance: no apparent distress (sitting in chair. alert) Respiratory/Chest: lungs clear, no respiratory distress Cardiovascular: regular rate, rhythm Neurologic/Psychiatric: alert, oriented x 3 Skin: + pertinent finding (small ulcer on right leg - minimal drainage) (Gia Salmeron M.D.) Hospital Course 82 year old female who presented to [facility] with acute on chronic SOB. Patient was discharged to rehab facility after extensive workup did not find any new findings for new onset shortness of breath. Shortness of breath - Appears to be chronic, with recent exacerbation; currently on 2L NC Will require home sleep study which apparently has been arranged Will give prescription for pulmonary rehabilitation - Right heart catheterization negative for elevated pressures; effectively normal BNPs, objective making CHF unlikely as a an etiology - V/Q scan low probability for PE - Likely cause is multifactorial --> diaphragmatic hemiparesis + asthma + obesity + deconditioning-related hypoventilation - Continue Duoneb and Spiriva - Continue Prednisone; back on baseline dose of 20 mg Chronic Leg Edema - Currently back on home doses of Torsemide and Spironolactone; - consider resuming lymphedema clinic treatments. - discussed limiting salt. Pre-renal azotemia - Cr stable at 1.2; baseline 1.0-1.1 - Encourage PO hydration Hypokalemia Chronic - likely sec to diuretics - K improved to 3.5 after repletion Orthostatic Hypotension - From adrenal suppression sec to chronic steroid use; continue Midodrine - In conjunction with severe SOB, this may greatly affect her ability to ambulate out of hospital and risk for poor inspiratory effort Right [place] Cellulitis - History of MRSA - Wound culture positive for Pseudomonas, resistant to quinolones BUT clinically [place] wound appears much better - Single dose Gentamyin given; Discussed case with ID and we will have patient on Imipenem and Vancomycin until discharge Can be discontinue oziel discharged given relatively good clinical appearance of ulcer Old rib fractures - No falls. Patient reports getting fractures if leans onto anything - likely with significant osteopenia sec to chronic steroid use. Anemia - iron studies negative. daughter reports patient has been on iron replacement Depression - Increase Citalopram to 40 mg yesterday Hypothyroidism - Continue Levothyroxine Restless Leg - Continue Requip Total Time Spent: Less than 30 minutes This includes examination of the patient, discharge planning, medication reconciliation, and communication with other providers. (Leo Fitzgerald MD) Resident Physician Supervision Note: I was present with Dr. Fitzgerald in bedside. I verified the alexander history and physical, reviewed labs and image studies, discussed the case with the resident and agree with the findings and care plan. Total Time Spent: Greater than 30 minutes (40) (Gia Salmeron M.D.) Discharge Instructions Please refer to the electronic Patient Visit Report (Discharge Instructions) for additional information. (Leo Fitzgerald MD) Additional Copies To Loraine Ortiz. NEFTALI; Norma Munoz D.O.; Michael De Souza M.D.
[2017-06-23] MEDS ORDERED: CEPH500C2 PO (08:59)
[2017-06-23] MEDS ORDERED: CLX20 PO (08:59)
== END 2017-04-21 16:44 | DRG 205 ==
LOC: C.2T 13:52 → ENRESERV 04-18 12:36 → C.4E 04-18 13:46
PROVIDERS: ADMIT Internal Medicine; ATTEND Family Medicine
PROC: 4A023N6 Measurement of Cardiac Sampling and Pressure, Right Heart, Percutaneous Approach (ICD-10-PCS; principal; 2017-04-17 10:55)
DX: E66.2 Morbid (severe) obesity with alveolar hypoventilation (principal); J96.21 Acute and chronic respiratory failure with hypoxia; Z68.41 Body mass index [BMI] 40.0-44.9, adult; I13.0 Hypertensive heart and chronic kidney disease with heart failure and stage 1 through stage 4 chronic kidney disease, or unspecified chronic kidney disease; N18.4 Chronic kidney disease, stage 4 (severe); I50.32 Chronic diastolic (congestive) heart failure; N17.9 Acute kidney failure, unspecified; L03.115 Cellulitis of right lower limb; E87.3 Alkalosis; L97.819 Non-pressure chronic ulcer of other part of right lower leg with unspecified severity; I48.0 Paroxysmal atrial fibrillation; J45.909 Unspecified asthma, uncomplicated; K21.9 Gastro-esophageal reflux disease without esophagitis; E78.5 Hyperlipidemia, unspecified; G89.4 Chronic pain syndrome; F41.9 Anxiety disorder, unspecified; F32.9 Major depressive disorder, single episode, unspecified; M19.90 Unspecified osteoarthritis, unspecified site; Z87.01 Personal history of pneumonia (recurrent); Z86.14 Personal history of Methicillin resistant Staphylococcus aureus infection; Z86.010 Personal history of colon polyps; Z87.440 Personal history of urinary (tract) infections; J31.0 Chronic rhinitis; K31.84 Gastroparesis; Z85.850 Personal history of malignant neoplasm of thyroid; E87.6 Hypokalemia; G25.81 Restless legs syndrome; M79.7 Fibromyalgia; B96.5 Pseudomonas (aeruginosa) (mallei) (pseudomallei) as the cause of diseases classified elsewhere; R35.0 Frequency of micturition; J98.6 Disorders of diaphragm; I95.1 Orthostatic hypotension; E89.0 Postprocedural hypothyroidism; Z79.899 Other long term (current) drug therapy; Z83.3 Family history of diabetes mellitus; Z80.9 Family history of malignant neoplasm, unspecified; Z82.49 Family history of ischemic heart disease and other diseases of the circulatory system; Z83.6 Family history of other diseases of the respiratory system; Z88.5 Allergy status to narcotic agent; Z83.79 Family history of other diseases of the digestive system; Z84.1 Family history of disorders of kidney and ureter; Z88.2 Allergy status to sulfonamides; Z88.7 Allergy status to serum and vaccine; Z88.8 Allergy status to other drugs, medicaments and biological substances; Z88.3 Allergy status to other anti-infective agents; Z91.048 Other nonmedicinal substance allergy status; Z90.49 Acquired absence of other specified parts of digestive tract; Z90.710 Acquired absence of both cervix and uterus; Z98.1 Arthrodesis status; Z96.659 Presence of unspecified artificial knee joint; Z96.611 Presence of right artificial shoulder joint; Z96.612 Presence of left artificial shoulder joint

== ENCOUNTER 2017-05-01 16:10 | Emergency (ER) | payer OTHER ==
[~2017-05-01 16:10] MED LIST changes: -ARFO15NE INH; -BUTA1CAP17 PO; -CITA20TA9 PO; +CLX20 PO; +DICL1GEL34 TD; +FERR324T PO; -FRRS300 PO; -GUAI1TAB69 PO; -HYDR0.75 PO; -IPRA1AER2 INH; -KETO0.5S22 OPL; -LINA1CAP2 PO; +LORA-741 PO; +MCRK/10 PO; +MELA1TAB48 PO; -MELA1TAB5 PO; -OMEP40CA41 PO; -POTA1TAB97 PO; +PRD10 PO; -PRED1SUS3 OPL; -Remove Lidoderm Patch; -SENN-65 PO; +SPRIN/30 INH; -TIOT1AER; +TORS20TA2 PO
[2017-05-01 16:27] VITALS: Ht 154.9 cm
[2017-05-01] MEDS ORDERED: IPRA1AER2 INH (17:39)
[2017-05-01] MEDS ORDERED: OYST1TAB (17:39)
[2017-05-01] MEDS ORDERED: LINA1CAP (17:39)
[2017-05-01] MEDS ORDERED: PRED20TA PO (17:39)
[2017-05-01] MEDS ORDERED: KFL/250 PO (17:39)
[2017-05-01] MEDS ORDERED: NUTR-31 (17:39)
[2017-05-01 18:56] VITALS: O2SAT 96
[2017-05-01 19:02] LABS: BASO % 0.1 %; BASO ABS # 0.01 K/uL (0-0.2); COMPLETE YES; HEMATOCRIT 33.7 % (37-47); IG% 3.2 %; LYMPH % 6.4 %; LYMPH ABS # 0.53 K/uL (1.2-3.4); MEAN CELL VOLUME 98.3 fL (80-100); MEAN CORPUSCULAR HEMOGLOBIN 32.4 pg (25-34); MEAN CORPUSCULAR HGB CONC 32.9 g/dl (32-36); MEAN PLATELET VOLUME 9.6 fL (7.4-10.4); MONO % 2.2 %; NEUT % 88.1 %; PLATELET COUNT 207 K/uL (130-400); RED BLOOD COUNT 3.43 M/uL (4.2-5.4); WHITE BLOOD COUNT 8.22 K/uL (4.8-10.8)
[2017-05-01 19:13] VITALS: TEMP 37
[2017-05-01 19:16] LABS: ALT/SGPT 41 U/L (12-78); BLOOD UREA NITROGEN 19 mg/dl (7-18); BUN/CREATININE RATIO 12.7 (10-20); CALCIUM 7.6 mg/dl (8.5-10.1); CARBON DIOXIDE 33 mmol/L (21-32); CHLORIDE 95 mmol/L (98-107); GLUCOSE 230 mg/dl (70-99); POTASSIUM 3.4 mmol/L (3.5-5.1); SODIUM 136 mmol/L (136-145)
[2017-05-01 19:21] LABS: ALKALINE PHOSPHATASE 75 U/L (45-117); AST/SGOT 25 U/L (15-37); CKMB/CK RATIO 1.8 (0-3.0)
[2017-05-01 19:24] LABS: INR 0.9 (0.9-1.1); PARTIAL THROMBOPLASTIN RATIO 0.9; PROTHROMBIN TIME (PATIENT) 9.9 SECONDS (9.0-12.0)
--- NOTE | 2017-05-01 19:24 | DIAGNOSTIC IMAGING REPORT ---
CHEST ONE VIEW PORTABLE CLINICAL HISTORY: Fever, sepsis COMPARISON STUDY: 01/23/2017 FINDINGS: There are postsurgical changes within the cervical spine. There are postsurgical changes of a thoracoabdominal spinal fusion. There are postsurgical changes involving both shoulders. The heart is enlarged. There is a persistent small right pleural effusion. There are persistent bibasal airspace opacities, likely atelectatic.[ IMPRESSION: No significant change from the prior study. Persistent cardiomegaly. Persistent right pleural effusion. Persistent bibasilar opacities, likely atelectatic Electronically signed by: Edenilson Barrett M.D. 05/01/2017 7:23 PM Dictated Date/Time: 05/01/2017 7:22 PM
--- NOTE | 2017-05-01 19:30 | EMERGENCY ROOM VISIT NOTE ---
History Report prepared by Suzanna: Paige Kasper Under the Supervision of: Dr. Denzel Pineda D.O. First contact with patient: 17:45 Chief Complaint: SHORTNESS OF BREATH Stated Complaint: TIRED, SOB, LOW BLOOD COUNTS Nursing Triage Summary: per log washer: daughter states mother has been more tired for last couple days worsening since yesterday. dehydrated and generalized malaise per Daughter. patietn c/o SOB and right sided abdominal pain. hx chronic anemia wears 2LNC at home. patient had steriod injection to right sciatica today History of Present Illness The patient is an 82 year old female who presents to the Emergency Room with complaints of persistent shortness of breath that began prior to arrival. She currently rates her discomfort as 5/10 in severity. Per the patient's daughter , the patient is chronically anemic. She states that the patient's red blood cell count has been around 3.1. She states that when the patient's H&H drops below 10 she then becomes short of breath and fatigued. The patient's daughter states that the patient doctors state that the patient should be treated when her H&H drops below 10. She states that the patient has been complaining of feeling weak. The patient's daughter states that the patient had a cardiac catheterization done two weeks ago that was normal. She states that cardiology wants the patient's blood pressure to be between 130-160 systolically. Source of History: patient, family (daughter) Onset: prior to arrival Position: other (global) Symptom Intensity: 5/10 Quality: other (shortness of breath) Timing: other (persistent) Associated Symptoms: + fatigue, + weakness Review of Systems See HPI for pertinent positives & negatives. A total of 10 systems reviewed and were otherwise negative. 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 (11) UMANA (dyspnea on exertion) (12) Dyspnea, unspecified (13) Gastroesophageal reflux disease (14) MRSA pneumonia (15) Syncope due to orthostatic hypotension Family History Diabetes mellitus FH: cancer FH: gallbladder disease FH: heart disease FH: lung disease Hypertension Kidney disease or stones Social History Smoking Status: Never Smoker Alcohol Use: none Drug Use: none Marital Status: Housing Status: lives with family Occupation Status: retired Current/Historical Medications Scheduled Calcium Carbonate (Calcium Carbonate), 1 TAB PO DAILY Cephalexin Monohydrate (Keflex), 250 MG PO QID Cholecalciferol (Vitamin D3), 2,000 UNITS PO DAILY Citalopram (Citalopram Hydrobromide), 40 MG PO QAM Cyanocobalamin (Vitamin B-12), 1,000 MCG PO QAM Diclofenac Sodium (Topical) (Diclofenac Sodium), 2 GM TD QID Ferrous Gluconate (Iron Supplement), 324 MG PO BID Gabapentin (Neurontin), 300 MG PO BID Ipratropium-Albuterol (Combivent Respimat), 1 PUFFS INH QID Levothyroxine Sodium (Levothyroxine Sodium), 88 MCG PO DAILY Lorazepam (Ativan), 0.5 MG PO HS Melatonin (Melatonin), 1 TAB PO HS Midodrine Hcl (Midodrine Hcl), 1 TAB PO TID Oyster Shell (Oyster Shell Calcium), HS Polyethylene Glycol-Propylene (Systane), 1 DROPS OPR QID Potassium Chloride (K-Tabs), 2 TABS PO BID Prednisone (Prednisone), 2 TAB PO DAILY Riboflavin (Riboflavin), 1 TAB PO QAM Simvastatin (Zocor), 20 MG PO HS Spironolactone (Spironolactone), 25 MG PO BID Tiotropium [place] (Spiriva [place]er), 1 CAP INH DAILY Tramadol (Ultram), 1 TAB PO TID Scheduled PRN Acetaminophen (Tylenol Arthritis Ext Rel), 650 MG PO Q4H PRN for Pain Ipratropium-Albuterol (Duoneb), 1 TREATMENT INH Q4H PRN for SOB/Wheezing Ropinirole (Requip), 0.5 MG PO HS PRN for RESTLESS LEGS Miscellaneous Medications Linaclotide (Linzess) Nutritional Supplements (Boost High Protein) Torsemide (Demadex), 20 MG PO Allergies Coded Allergies: Pneumococcal Vaccine (Verified Allergy, Severe, SHORTNESS OF BREATH, ) Erythromycin (Verified Allergy, Mild, RASH, 05/01/17) Adhesives (Verified Allergy, Unknown, TAPE-REDNESS, BLISTERS, 05/01/17) Metronidazole (Verified Allergy, Unknown, skin rash, 05/01/17) allergic to generic form Phenazopyridine (Verified Allergy, Unknown, abdominal pain/rash, 05/01/17) Polymyxin B (Verified Allergy, Unknown, 05/01/17) Salicylates (Verified Allergy, Unknown, pt states rash with ASA 325 but not ASA 81mg, 05/01/17) Sulfa Antibiotics (Verified Allergy, Unknown, "SULFA DRUGS" = RASH, ) family reports patient tolerates Bactrim Tetracycline (Verified Allergy, Unknown, RASH, 05/01/17) Morphine (Verified Adverse Reaction, Intermediate, urinary retention - oral morphine only, 05/01/17) Diltiazem (Verified Adverse Reaction, Mild, FLUID RETENTION, 05/01/17) Metoclopramide (Verified Adverse Reaction, Mild, TREMORS, 05/01/17) Bacitracin (Verified Adverse Reaction, Unknown, "MAKES IT WORSE"-OK IF NOT OTC MEDICATION, 05/01/17) OKAY IF NOT OVER THE COUNTER MEDICATION Physical Exam Vital Signs Date Time Temp Pulse Resp B/P (MAP) Pulse Ox O2 Delivery O2 Flow Rate FiO2 05/01/17 19:13 37.0 94 22 131/73 95 Nasal Cannula 2.0 05/01/17 18:56 96 Nasal Cannula 2.0 05/01/17 18:02 94 16 123/66 95 Nasal Cannula 2.0 05/01/17 17:10 96 Nasal Cannula 2.0 05/01/17 17:08 96 05/01/17 17:03 94 26 130/68 96 Nasal Cannula 2.0 05/01/17 16:31 91 Nasal Cannula 2.0 05/01/17 16:27 37.1 104 28 122/68 92 Nasal Cannula 2.0 Physical Exam CONSTITUTIONAL/VITAL SIGNS: Reviewed / noted above. GENERAL: Non-toxic in appearance. INTEGUMENTARY: Warm, dry, and [place]. HEAD: Normocephalic. EYES: without scleral icterus or trauma. ENT/OROPHARYNX: clear and moist. LYMPHADENOPATHY/NECK: Is supple without lymphadenopathy or meningismus. RESPIRATORY: Lungs clear and equal. CARDIOVASCULAR: Regular rate and rhythm. GI/ABDOMEN: Soft and nontender. No organomegaly or pulsatile mass. No rebound or guarding. Normal bowel sounds. EXTREMITIES: Warm and well perfused. BACK: No CVA tenderness. NEUROLOGICAL: Intact without focal deficits. PSYCHIATRIC: normal affect. MUSCULOSKELETAL: Normally developed with good muscle tone. Medical Decision & Procedures ER Provider Diagnostic Interpretation: X ray results and stated below per my interpretation and radiology interpretation. CHEST ONE VIEW PORTABLE CLINICAL HISTORY: Fever, sepsis COMPARISON STUDY: 01/23/2017 FINDINGS: There are postsurgical changes within the cervical spine. There are postsurgical changes of a thoracoabdominal spinal fusion. There are postsurgical changes involving both shoulders. The heart is enlarged. There is a persistent small right pleural effusion. There are persistent bibasal airspace opacities, likely atelectatic.[ IMPRESSION: No significant change from the prior study. Persistent cardiomegaly. Persistent right pleural effusion. Persistent bibasilar opacities, likely atelectatic Electronically signed by: Edenilson Barrett M.D. 05/01/2017 7:23 PM Dictated Date/Time: 05/01/2017 7:22 PM Laboratory Results 05/01/17 18:50 Red Blood Count 3.43, Mean Corpuscular Volume 98.3, Mean Corpuscular Hemoglobin 32.4, Mean Corpuscular Hemoglobin Concent 32.9, Mean Platelet Volume 9.6, Neutrophils (%) (Auto) 88.1, Lymphocytes (%) (Auto) 6.4, Monocytes (%) (Auto) 2.2, Eosinophils (%) (Auto) 0.0, Basophils (%) (Auto) 0.1, Neutrophils # (Auto) 7.24, Lymphocytes # (Auto) 0.53, Monocytes # (Auto) 0.18, Eosinophils # (Auto) 0.00, Basophils # (Auto) 0.01 05/01/17 18:50 Test 05/01/17 18:50 White Blood Count 8.22 K/uL (4.8-10.8) Red Blood Count 3.43 M/uL (4.2-5.4) Hemoglobin 11.1 g/dL (12.0-16.0) Hematocrit 33.7 % (37-47) Mean Corpuscular Volume 98.3 fL (80-100) Mean Corpuscular Hemoglobin 32.4 pg (25-34) Mean Corpuscular Hemoglobin Concent 32.9 g/dl (32-36) Platelet Count 207 K/uL (130-400) Mean Platelet Volume 9.6 fL (7.4-10.4) Neutrophils (%) (Auto) 88.1 % Lymphocytes (%) (Auto) 6.4 % Monocytes (%) (Auto) 2.2 % Eosinophils (%) (Auto) 0.0 % Basophils (%) (Auto) 0.1 % Neutrophils # (Auto) 7.24 K/uL (1.4-6.5) Lymphocytes # (Auto) 0.53 K/uL (1.2-3.4) Monocytes # (Auto) 0.18 K/uL (0.11-0.59) Eosinophils # (Auto) 0.00 K/uL (0-0.5) Basophils # (Auto) 0.01 K/uL (0-0.2) RDW Standard Deviation 65.7 fL (36.4-46.3) RDW Coefficient of Variation 18.3 % (11.5-14.5) Immature Granulocyte % (Auto) 3.2 % Immature Granulocyte # (Auto) 0.26 K/uL (0.00-0.02) Nucleated RBC Absolute Count (auto) 0.04 K/uL (0-0) Nucleated Red Blood Cells % 0.5 % Prothrombin Time 9.9 SECONDS (9.0-12.0) Prothromb Time International Ratio 0.9 (0.9-1.1) Activated Partial Thromboplast Time 23.6 SECONDS (21.0-31.0) Partial Thromboplastin Ratio 0.9 Anion Gap 8.0 mmol/L (3-11) Estimated GFR () 37.7 Estimated GFR (Non- 32.6 BUN/Creatinine Ratio 12.7 (10-20) Calcium Level 7.6 mg/dl (8.5-10.1) Total Bilirubin 0.6 mg/dl (0.2-1) Direct Bilirubin 0.1 mg/dl (0-0.2) Aspartate Amino Transf (AST/SGOT) 25 U/L (15-37) Alanine Aminotransferase (ALT/SGPT) 41 U/L (12-78) Alkaline Phosphatase 75 U/L (45-117) Total Creatine Kinase 83 U/L (26-192) Creatine Kinase MB 1.5 ng/ml (0.5-3.6) Creatine Kinase MB Ratio 1.8 (0-3.0) Troponin I < 0.015 ng/ml (0-0.045) Total Protein 6.7 gm/dl (6.4-8.2) Albumin 3.2 gm/dl (3.4-5.0) Laboratory results as stated above per my review. ECG Indication: SOB/dyspnea, weakness Rate (beats per minute): 92 Rhythm: normal sinus Findings: no acute ischemic change, no ectopy ED Course 1814: Previous medical records were reviewed. The patient was evaluated in room C8. A complete history and physical examination was performed. 1939: I reevaluated the patient and she is resting. I discussed all the exam findings with her daughter and I discussed the treatment plan. She verbalized complete understanding and agreement. She is ready to take the patient home. Medical Decision Differentials include: Acute coronary syndrome, myocardial infarction, CVA, TIA , anemia, infection, pneumonia, UTI, pyelonephritis, poor nutrition, dehydration , electrolyte disturbance, and hypoglycemia. This is an 82-year-old female who presents to the ED with a chief complaint of shortness of breath. The patient has been tired recently and has been short of breath. The patient is using 2 L of oxygen at home. She is saturating 95% on this 2 L. The patient's daughter was concerned about anemia. Her vital signs are normal. Exam was unremarkable. Lungs are clear. There is no pedal edema or swelling in the lower extremities. Abdomen was soft and nontender. EKG shows a normal sinus rhythm at a rate of 97. Hemoglobin is 11.1. Troponin was negative. Complete metabolic panel was unremarkable. The creatinine is 1.5. Baseline is 1.3. Chest x-ray did not show acute disease. The patient was told the results of the test. She is felt to be stable for discharge and outpatient follow-up. Medication Reconcilliation Current Medication List: was personally reviewed by me Blood Pressure Screening Patient's blood pressure: Normal blood pressure Blood pressure disposition: Did not require urgent referral Impression Primary Impression: Fatigue Additional Impression: Dyspnea Scribe Attestation The scribe's documentation has been prepared under my direction and personally reviewed by me in its entirety. I confirm that the note above accurately reflects all work, treatment, procedures, and medical decision making performed by me. Departure Information Dispostion Home / Self-Care Referrals Michael De Souza M.D. (PCP) Forms HOME CARE DOCUMENTATION FORM, IMPORTANT VISIT INFORMATION Patient Instructions My [facility] Additional Instructions Follow-up with your doctor for further care and evaluation in 1-2 days. Return to the emergency department for worsening or new symptoms or any concerns. You have been examined and treated today on an emergency basis only. This is not a substitute for, or an effort to provide, complete comprehensive medical care. It is impossible to recognize and treat all injuries or illnesses in a single emergency department visit. It is therefore important that you follow up closely with your doctor. Call as soon as possible for an appointment. Problem Qualifiers
[2017-05-01 19:31] VITALS: BP 124/68
[2017-05-01 19:40] VITALS: PULSE 93; O2SAT 95
[2017-06-23] MEDS ORDERED: CLX20 PO (08:59)
[2017-06-23] MEDS ORDERED: CEPH500C2 PO (08:59)
== END 2017-05-01 20:12 | disposition home or self-care (01) ==
LOC: C.EDB 16:11 → C.EDC 20:12
DX: R06.00 Dyspnea, unspecified (principal); R53.83 Other fatigue; K21.9 Gastro-esophageal reflux disease without esophagitis; J45.909 Unspecified asthma, uncomplicated; I50.30 Unspecified diastolic (congestive) heart failure; Z86.14 Personal history of Methicillin resistant Staphylococcus aureus infection; Z98.890 Other specified postprocedural states; Z79.899 Other long term (current) drug therapy; Z88.2 Allergy status to sulfonamides; Z88.3 Allergy status to other anti-infective agents; Z88.8 Allergy status to other drugs, medicaments and biological substances; Z91.09 Other allergy status, other than to drugs and biological substances; Z83.3 Family history of diabetes mellitus; Z80.9 Family history of malignant neoplasm, unspecified; Z83.79 Family history of other diseases of the digestive system; Z82.49 Family history of ischemic heart disease and other diseases of the circulatory system; Z84.1 Family history of disorders of kidney and ureter; G24.8 Other dystonia; Z96.611 Presence of right artificial shoulder joint; M96.1 Postlaminectomy syndrome, not elsewhere classified; M79.1 Myalgia; M70.61 Trochanteric bursitis, right hip; G57.83 Other specified mononeuropathies of bilateral lower limbs; Z98.1 Arthrodesis status; G89.28 Other chronic postprocedural pain; M48.54XD Collapsed vertebra, not elsewhere classified, thoracic region, subsequent encounter for fracture with routine healing; I51.7 Cardiomegaly; J90 Pleural effusion, not elsewhere classified; M46.1 Sacroiliitis, not elsewhere classified

== ENCOUNTER → 2017-05-08 | Outpatient (CLI) | payer OTHER ==
[~2017-05-08] MED LIST changes: +CEPH500C2 PO; +IPRA1AER2 INH; +KFL/250 PO; +LINA1CAP; +NUTR-31; +OYST1TAB; -PRD10 PO; +PRED20TA PO; -PRED20TA2 PO
[2017-05-08 17:38] LABS: ALT/SGPT 52 U/L (12-78); AST/SGOT 20 U/L (15-37); BLOOD UREA NITROGEN 30 mg/dl (7-18); BUN/CREATININE RATIO 25.4 (10-20); CALCIUM 8.1 mg/dl (8.5-10.1); CARBON DIOXIDE 31 mmol/L (21-32); CHLORIDE 97 mmol/L (98-107); GLUCOSE 247 mg/dl (70-99); POTASSIUM 4.4 mmol/L (3.5-5.1); SODIUM 135 mmol/L (136-145)
[2017-05-08 17:40] LABS: ALB/GLOB RATIO 1.1 (0.9-2); ALKALINE PHOSPHATASE 77 U/L (45-117)
[2017-05-08 17:51] LABS: HEMATOCRIT 35.8 % (37-47); MEAN CELL VOLUME 99.4 fL (80-100); MEAN CORPUSCULAR HEMOGLOBIN 31.9 pg (25-34); MEAN CORPUSCULAR HGB CONC 32.1 g/dl (32-36); PLATELET COUNT 213 K/uL (130-400)
[2017-05-08 18:58] LABS: BASO % 0.3 %; BASO ABS # 0.03 K/uL (0-0.2); COMPLETE YES; EOS % 0.1 %; IG% 5.2 %; LYMPH % 8.4 %; LYMPH ABS # 0.92 K/uL (1.2-3.4); MONO % 2.8 %; NEUT % 83.2 %; POLYCHROMASIA 1+
== END | disposition home or self-care (01) ==
LOC: C.LABBFT 14:43
PROVIDERS: ATTEND Internal Medicine
DX: D64.9 Anemia, unspecified (principal); J96.10 Chronic respiratory failure, unspecified whether with hypoxia or hypercapnia

== ENCOUNTER → 2017-06-02 | Outpatient (CLI) | payer OTHER ==
[~2017-06-02] MED LIST changes: -FERR324T PO; -KFL/250 PO
[2017-06-02 18:14] LABS: HEMATOCRIT 36.2 % (37-47); MEAN CELL VOLUME 101.4 fL (80-100); MEAN CORPUSCULAR HEMOGLOBIN 32.8 pg (25-34); MEAN CORPUSCULAR HGB CONC 32.3 g/dl (32-36); MEAN PLATELET VOLUME 10.7 fL (7.4-10.4); PLATELET COUNT 178 K/uL (130-400); RED BLOOD COUNT 3.57 M/uL (4.2-5.4); WHITE BLOOD COUNT 11.85 K/uL (4.8-10.8)
[2017-06-02 18:23] LABS: ALT/SGPT 47 U/L (12-78); BLOOD UREA NITROGEN 27 mg/dl (7-18); BUN/CREATININE RATIO 27.1 (10-20); CALCIUM 9.1 mg/dl (8.5-10.1); CARBON DIOXIDE 33 mmol/L (21-32); CHLORIDE 97 mmol/L (98-107); GLUCOSE 188 mg/dl (70-99); POTASSIUM 3.9 mmol/L (3.5-5.1); SODIUM 137 mmol/L (136-145)
[2017-06-02 18:26] LABS: ALB/GLOB RATIO 1.1 (0.9-2); ALKALINE PHOSPHATASE 71 U/L (45-117); AST/SGOT 21 U/L (15-37)
--- NOTE | 2017-06-08 12:03 | CODING QUERY NO DIAGNOSIS ---
Valid Physician Order Needed A valid physician order must be submitted in order to properly bill for the service(s) provided, including date of service(s), valid diagnosis, and physician signature. If these tests are done on a recurring basis the original physician order must be submitted in order to code and bill for the service(s) provided. Please fax us the original, signed physician order so that we may expedite billing to [phone] DOS 06/02/2017 * CBC W/O DIFF * CMP Thank you [facility] Information Management
== END | disposition home or self-care (01) ==
LOC: C.LABSPEC 17:15
PROVIDERS: ATTEND Internal Medicine
DX: I13.0 Hypertensive heart and chronic kidney disease with heart failure and stage 1 through stage 4 chronic kidney disease, or unspecified chronic kidney disease (principal); I50.32 Chronic diastolic (congestive) heart failure; N18.3 Chronic kidney disease, stage 3 (moderate)

== ENCOUNTER → 2017-07-05 | Outpatient (CLI) | payer OTHER ==
[~2017-07-05] MED LIST changes: +CALC1CAP36 PO; +DEXL60CA4 PO; +DICL1GEL12 TOP; +FERR1TAB23 PO; +INSU1INJ23 SQ; +LEVO100T7 PO; +MIRA1TAB3 PO; +NVLGI/PEN SQ; +NYST100010 TOP; +POTA1CAP2 PO; +PRED10TA PO; +TIOT1AER2 INH
[2017-07-05 17:42] LABS: BLOOD UREA NITROGEN 25 mg/dl (7-18); BUN/CREATININE RATIO 22.8 (10-20); CARBON DIOXIDE 34 mmol/L (21-32); CHLORIDE 91 mmol/L (98-107); CREATININE 1.11 mg/dl (0.60-1.20); GLUCOSE 106 mg/dl (70-99); POTASSIUM 3.5 mmol/L (3.5-5.1); SODIUM 136 mmol/L (136-145)
[2017-07-05 17:53] LABS: CHOLESTEROL 254 mg/dl (0-200); CHOLESTEROL/HDL RATIO 4.2; HDL CHOLESTEROL 61 mg/dl; LDL CHOLESTEROL CALCULATED 117 mg/dl; THYROID STIMULATING HORMONE 0.644 uIu/ml (0.300-4.500); TRIGLYCERIDES 380 mg/dl (0-150); VERY LOW DENSITY LIPOPROT CALC 76 mg/dl
== END | disposition home or self-care (01) ==
LOC: C.LABBFT 11:33
PROVIDERS: ATTEND Internal Medicine Endocrinology, Diabetes & Metabolism
DX: R53.83 Other fatigue (principal); E55.9 Vitamin D deficiency, unspecified; E20.9 Hypoparathyroidism, unspecified; N18.9 Chronic kidney disease, unspecified; E78.5 Hyperlipidemia, unspecified

== ENCOUNTER → 2017-08-04 | Outpatient (CLI) | payer OTHER ==
[~2017-08-04] MED LIST changes: -CEPH500C2 PO; -DICL1GEL34 TD; +ERGO500011 PO; +FRCT/ PO; +INSDGIPEN SC; -INSU1INJ23 SQ; +INSU32MI13 SQ; -LEVO88TA3 PO; +LPR25 PO; +LVQ750 PO; -MCRK/10 PO; -MIRA1TAB3 PO; +NRV5 PO; -NUTR-31; -OYST1TAB; -POLYSOL4 OPR; -PRED20TA PO; -SPRIN/30 INH; -TORS20TA2 PO
--- NOTE | 2017-08-04 13:51 | DIAGNOSTIC IMAGING REPORT ---
R SHOULDER MIN 2 VIEWS ROUTINE CLINICAL HISTORY: Right shoulder pain. COMPARISON STUDY: Right shoulder 09/19/2015. FINDINGS: There is a right total shoulder arthroplasty. The hardware appears intact. No acute fracture or dislocation. Extensive cervical spinal fusion hardware is again noted. There has been distal resection of the right clavicle. Mild inferior displacement of the distal clavicle in relation to the acromium has slightly progressed. This measures up to 6 mm. IMPRESSION: 1. Postoperative changes within the right shoulder. No acute fracture or dislocation. 2. Mild inferior displacement within the right clavicle in relation to the acromion which has slightly progressed. This raises the possibility of interval acromioclavicular separation. Electronically signed by: Jeff Maldonado M.D. 08/04/2017 1:49 PM Dictated Date/Time: 08/04/2017 1:40 PM
== END | disposition home or self-care (01) ==
LOC: C.RAD 12:47
PROVIDERS: ATTEND Physician Assistant Medical
DX: M25.511 Pain in right shoulder (principal)

== ENCOUNTER → 2017-08-04 | Outpatient (CLI) | payer OTHER ==
[2017-08-04 12:15] LABS: BASO % 0.1 %; BASO ABS # 0.01 K/uL (0-0.2); COMPLETE YES; EOS % 0.1 %; HEMATOCRIT 38.9 % (37-47); IG% 3.7 %; LYMPH % 8.8 %; LYMPH ABS # 0.96 K/uL (1.2-3.4); MEAN CELL VOLUME 101.3 fL (80-100); MEAN CORPUSCULAR HGB CONC 30.6 g/dl (32-36); MEAN PLATELET VOLUME 10.3 fL (7.4-10.4); MONO % 4.4 %; NEUT % 82.9 %; PLATELET COUNT 184 K/uL (130-400); RED BLOOD COUNT 3.84 M/uL (4.2-5.4); WHITE BLOOD COUNT 10.85 K/uL (4.8-10.8)
[2017-08-04 12:25] LABS: BLOOD UREA NITROGEN 24 mg/dl (7-18); BUN/CREATININE RATIO 23.3 (10-20); CALCIUM 7.9 mg/dl (8.5-10.1); CARBON DIOXIDE 30 mmol/L (21-32); CHLORIDE 104 mmol/L (98-107); CREATININE 1.04 mg/dl (0.60-1.20); GLUCOSE 149 mg/dl (70-99); POTASSIUM 4.6 mmol/L (3.5-5.1); SODIUM 141 mmol/L (136-145)
[2017-08-04 12:35] LABS: THYROID STIMULATING HORMONE 0.802 uIu/ml (0.300-4.500)
== END | disposition home or self-care (01) ==
LOC: C.LABBFT 10:48
PROVIDERS: ATTEND Physician Assistant Medical
DX: Z00.00 Encounter for general adult medical examination without abnormal findings (principal); E20.9 Hypoparathyroidism, unspecified; E89.0 Postprocedural hypothyroidism; C73 Malignant neoplasm of thyroid gland; Z79.899 Other long term (current) drug therapy; R53.83 Other fatigue; D64.9 Anemia, unspecified; E55.9 Vitamin D deficiency, unspecified

== ENCOUNTER → 2017-08-09 | Outpatient (CLI) | payer OTHER ==
[2017-08-09 10:46] LABS: URINE APPEARANCE TURBID (CLEAR); URINE BILIRUBIN NEG (NEG); URINE COLOR DK YELLOW; URINE EPITHELIAL CELL AUTO >30 /lpf (0-5); URINE NITRITE NEG (NEG); URINE SPECIFIC GRAVITY 1.037 (1.000-1.030); UROBILINOGEN NEG (NEG)
[2017-08-09 10:49] LABS: MANUAL MICROSCOPIC REQUIRED? NO; REVIEW REQ? YES
== END | disposition home or self-care (01) ==
LOC: C.LAB1850 09:18
PROVIDERS: ATTEND Physician Assistant Medical
DX: R39.9 Unspecified symptoms and signs involving the genitourinary system (principal)

== ENCOUNTER → 2017-08-24 | Outpatient (CLI) | payer OTHER ==
[~2017-08-24] MED LIST changes: +AGMUDL4005 PO; +APIX1TAB3 PO; +ATOR10TA82 PO; +BUTACAP7 PO; +Boost Plus Vanilla PO; +CALC12504 PO; +CHOL2000 PO; +CHOLTAB9 PO; +CITA20TA4 PO; +CMD5 PO; +CRD200 PO; +CRFL PO; +CYAN1CAP3 PO; +DEXT30TA7 PO; +DLCS PR; +ELQ25 PO; +FERR1TAB13 PO; +FLUC150T PO; +GENT60IN4 NAE; +GUAI1TAB55 PO; +HYDR-4079 PO; +HYDR5SYP11 PO; +INSU100I23 SQ; +IPRA-64 INH; -IPRASOL4 INH; +LCTXP PO; +LEVO1TAB35 PO; -LINA1CAP; +LINA1CAP PO; +LINA1CAP2 PO; +LVNIS100 SQ; +MCRK20 PO; +MGNO400 PO; +MIRA1TAB3 PO; +MOML PO; +MRLP17 PO; +MULT1LIQ6 PO; -NF84 PO; +NRN100 PO; +NUTR-7 PO; +NVLGIPEN SC; +NYSS5 PO; +NYST80OI TOP; +PANT1TAB3 PO; +POLY1SOL6 OP; +POTA-639 PO; +POTA10TA PO; +PRD/25 PO; +PRD20 PO; +PRMT25 PO; +PROB1TAB16 PO; +ROPI0.5T PO; +RSPS5 PO; +SENN8.6T7 PO; +SPIR25TA PO; +SPIR25TA6 PO; -SPR25 PO; +SPRIN/30 INH; +SUCR5SUS PO; +VANC1SUS PO; +VANC5CAP PO; +VLTG EXT; +VNTHFA/IN INH
[2017-08-24 14:41] LABS: BLOOD UREA NITROGEN 23 mg/dl (7-18); CALCIUM 7.7 mg/dl (8.5-10.1); CARBON DIOXIDE 24 mmol/L (21-32); GLUCOSE 148 mg/dl (70-99); POTASSIUM 4.4 mmol/L (3.5-5.1); SODIUM 139 mmol/L (136-145)
== END | disposition home or self-care (01) ==
LOC: C.LABSPEC 14:22
PROVIDERS: ATTEND Internal Medicine
DX: E87.6 Hypokalemia (principal); N39.0 Urinary tract infection, site not specified; E09.52 Drug or chemical induced diabetes mellitus with diabetic peripheral angiopathy with gangrene; T38.0X Poisoning by, adverse effect of and underdosing of glucocorticoids and synthetic analogues; X58.XXXD Exposure to other specified factors, subsequent encounter

== ENCOUNTER 2017-08-25 00:47 | Emergency (ER) | payer OTHER ==
[~2017-08-25] VITALS: Ht 157.5 cm; Wt 99.4 kg
[~2017-08-25 00:47] MED LIST changes: -AGMUDL4005 PO; -APIX1TAB3 PO; -ATOR10TA82 PO; -BUTACAP7 PO; -Boost Plus Vanilla PO; -CALC12504 PO; -CHOL2000 PO; -CHOLTAB9 PO; -CITA20TA4 PO; -CMD5 PO; -CRD200 PO; -CRFL PO; -CYAN1CAP3 PO; -DEXT30TA7 PO; -DLCS PR; -ELQ25 PO; -FERR1TAB13 PO; -FLUC150T PO; -GENT60IN4 NAE; -GUAI1TAB55 PO; -HYDR-4079 PO; -HYDR5SYP11 PO; -INSU100I23 SQ; -IPRA-64 INH; +IPRASOL4 INH; -LCTXP PO; -LEVO1TAB35 PO; -LINA1CAP2 PO; -LVNIS100 SQ; -MCRK20 PO; -MGNO400 PO; -MIRA1TAB3 PO; -MOML PO; -MRLP17 PO; -MULT1LIQ6 PO; +NF84 PO; -NRN100 PO; -NUTR-7 PO; -NVLGIPEN SC; -NYSS5 PO; -NYST80OI TOP; -PANT1TAB3 PO; -POLY1SOL6 OP; -POTA-639 PO; -POTA10TA PO; -PRD/25 PO; -PRD20 PO; -PRMT25 PO; -PROB1TAB16 PO; -ROPI0.5T PO; -RSPS5 PO; -SENN8.6T7 PO; -SPIR25TA PO; -SPIR25TA6 PO; +SPR25 PO; -SPRIN/30 INH; -SUCR5SUS PO; -VANC1SUS PO; -VANC5CAP PO; -VLTG EXT; -VNTHFA/IN INH
[2017-08-25 00:56] VITALS: Ht 157.5 cm; Wt 99.4 kg
[2017-08-25 01:22] LABS: BASO % 0.1 %; BASO ABS # 0.01 K/uL (0-0.2); COMPLETE YES; EOS % 0.1 %; HEMATOCRIT 37.1 % (37-47); IG% 4.7 %; LYMPH % 15.2 %; LYMPH ABS # 1.12 K/uL (1.2-3.4); MEAN CELL VOLUME 99.7 fL (80-100); MEAN CORPUSCULAR HEMOGLOBIN 31.2 pg (25-34); MEAN CORPUSCULAR HGB CONC 31.3 g/dl (32-36); MEAN PLATELET VOLUME 10.2 fL (7.4-10.4); MONO % 8.1 %; NEUT % 71.8 %; PLATELET COUNT 158 K/uL (130-400); RED BLOOD COUNT 3.72 M/uL (4.2-5.4); WHITE BLOOD COUNT 7.37 K/uL (4.8-10.8)
[2017-08-25 01:40] LABS: ALT/SGPT 28 U/L (12-78); AST/SGOT 12 U/L (15-37); BLOOD UREA NITROGEN 20 mg/dl (7-18); BUN/CREATININE RATIO 22.9 (10-20); CALCIUM 7.6 mg/dl (8.5-10.1); CARBON DIOXIDE 33 mmol/L (21-32); CHLORIDE 104 mmol/L (98-107); CREATININE 0.86 mg/dl (0.60-1.20); GLUCOSE 84 mg/dl (70-99); POTASSIUM 3.8 mmol/L (3.5-5.1); SODIUM 140 mmol/L (136-145)
[2017-08-25 01:46] LABS: ALKALINE PHOSPHATASE 45 U/L (45-117); CKMB/CK RATIO 3.3 (0-3.0)
[2017-08-25 02:23] LABS: URINE APPEARANCE CLEAR (CLEAR); URINE BILIRUBIN NEG (NEG); URINE COLOR DK YELLOW; URINE NITRITE NEG (NEG); URINE PH 7.5 (4.5-7.5); URINE SPECIFIC GRAVITY 1.018 (1.000-1.030); UROBILINOGEN NEG (NEG)
[2017-08-25] MEDS ORDERED: PRED10TA PO (02:32)
[2017-08-25 02:40] LABS: MANUAL MICROSCOPIC REQUIRED? NO; REVIEW REQ? NO
--- NOTE | 2017-08-25 02:44 | EMERGENCY ROOM VISIT NOTE ---
History Report prepared by Suzanna: Maribeth Moore Under the Supervision of: Dr. Linda Singh D.O. First contact with patient: 00:56 Chief Complaint: RESPIRATORY PROBLEMS Stated Complaint: BREATHING DIFFCULTY Nursing Triage Summary: patient recently admitted with breathing difficulty, started having breathing difficulty again today. also states increased weakness. uses 2L O2 at home normally, has had to increased it to 4 L recently. History of Present Illness The patient is an 82 year old female who presents to the Emergency Room with complaints of worsening respiratory problems starting today. The patient's daughter states that she went home from work tonight and her mother seemed weak. She reports that her mom complained about shortness of breath and notes it is worse when standing. She reports that the home health nurse believes that she heard something in her lungs today. The patient complains of right side and shoulder pain. The daughter notes that they just found that she has a shoulder between the clavicle and collarbone. She reports that she has an appointment with Dr. Carreon in September. The daughter notes that when she complains about her side in the past, she has been diagnosed with a UTI. The patient denies abdominal pain. The daughter notes that she took her last dose of Augmentin for cellulitis on her legs last night. She denies the patient being on blood thinners. She reports that the patient normally wears O2 at home from 2-4.5 L. Source of History: patient, family Onset: today Position: other (global) Quality: other (global) Timing: worsening Modifying Factors (Worsening): exertion Associated Symptoms: No abdominal pain Note: The patient complains of right side pain and shoulder pain. Review of Systems See HPI for pertinent positives & negatives. A total of 10 systems reviewed and were otherwise negative. 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 (13) UMANA (dyspnea on exertion) (14) Dyspnea, unspecified (15) Gastroesophageal reflux disease (16) MRSA pneumonia (17) Syncope due to orthostatic hypotension Family History Diabetes mellitus FH: cancer FH: gallbladder disease FH: heart disease FH: lung disease Hypertension Kidney disease or stones Social History Smoking Status: Never Smoker Alcohol Use: none Drug Use: none Marital Status: Housing Status: lives with family Occupation Status: retired Current/Historical Medications Scheduled Amlodipine Besylate (Amlodipine Besylate), 5 MG PO QAM Calcitriol (Calcitriol), 0.25 MCG PO DAILY Calcium Carbonate (Calcium Carbonate), 1 TAB PO HS Cholecalciferol (Vitamin D3), 1,000 UNITS PO DAILY Citalopram (Citalopram Hydrobromide), 40 MG PO DAILY Cyanocobalamin (Vitamin B-12), 1,000 MCG PO QAM Dexlansoprazole (Dexilant), 60 MG PO QAM Diclofenac Sodium (Topical) (Voltaren 1% Top Gel), 1 APPLN TOP PRN UD Ergocalciferol (Vitamin D 57703 Unit), 50,000 INTERUNIT PO Q7D@0900 Ferrous Sulfate (Iron), 325 MG PO QAM Insulin Aspart (Novolog Flexpen), SQ QPM Insulin Glargine (Lantus Solostar), 20 UNITS SC QAM Ipratropium-Albuterol (Combivent Respimat), 1 PUFFS INH QID Levothyroxine Sodium (Levothyroxine Sodium), 100 MCG PO QAM Linaclotide (Linzess), 145 MCG PO QAM Melatonin (Melatonin), 1 TAB PO HS Metoprolol Tartrate (Lopressor), 12.5 MG PO BID Nystatin (Topical) (Nystop), 1 APPLN TOP TID Potassium Chloride (Potassium Chloride Er), 20 MEQ PO BID Prednisone Tab (Prednisone), 30 MG PO DAILY Riboflavin (Riboflavin), 1 TAB PO QAM Ropinirole (Requip), 1-2 TABS PO HS Simvastatin (Zocor), 20 MG PO HS Spironolactone (Spironolactone), 25 MG PO BID Tiotropium [place] (Spiriva Respimat), 2 PUFF INH DAILY Tramadol (Ultram), 50 MG PO QID Scheduled PRN Acetamin/Butalbital/Caffeine (Fioricet), 1 TAB PO Q4H PRN for Headache Acetaminophen (Tylenol Arthritis Ext Rel), 650 MG PO Q4H PRN for Pain Ipratropium-Albuterol (Duoneb), 1 TREATMENT INH Q4H PRN for SOB/Wheezing Lorazepam (Ativan), 0.5 MG PO HS PRN for Sleep Midodrine Hcl (Midodrine Hcl), 1 TAB PO TID PRN for BP<100/60 or if up and about Allergies Coded Allergies: Pneumococcal Vaccine (Verified Allergy, Severe, SHORTNESS OF BREATH, ) Erythromycin (Verified Allergy, Mild, RASH, 08/25/17) Adhesives (Verified Allergy, Unknown, TAPE-REDNESS, BLISTERS, 08/25/17) Metronidazole (Verified Allergy, Unknown, skin rash, 08/25/17) allergic to generic form Phenazopyridine (Verified Allergy, Unknown, abdominal pain/rash, 08/25/17) Polymyxin B (Verified Allergy, Unknown, 08/25/17) Salicylates (Verified Allergy, Unknown, pt states rash with ASA 325 but not ASA 81mg, 08/25/17) Tetracycline (Verified Allergy, Unknown, RASH, 08/25/17) Morphine (Verified Adverse Reaction, Intermediate, urinary retention - oral morphine only, 08/25/17) Diltiazem (Verified Adverse Reaction, Mild, FLUID RETENTION, 08/25/17) Metoclopramide (Verified Adverse Reaction, Mild, TREMORS, 08/25/17) Bacitracin (Verified Adverse Reaction, Unknown, "MAKES IT WORSE"-OK IF NOT OTC MEDICATION, 08/25/17) OKAY IF NOT OVER THE COUNTER MEDICATION Physical Exam Vital Signs Date Time Temp Pulse Resp B/P (MAP) Pulse Ox O2 Delivery O2 Flow Rate FiO2 08/25/17 04:03 84 16 134/76 96 08/25/17 03:21 36.7 80 20 152/80 93 Nasal Cannula 4.0 08/25/17 02:00 144/97 08/25/17 01:47 83 20 95 Nasal Cannula 4.0 08/25/17 01:30 145/88 08/25/17 01:17 81 19 96 Nasal Cannula 4.0 08/25/17 01:00 138/92 08/25/17 00:56 36.6 83 18 138/81 97 Nasal Cannula 4.0 08/25/17 00:56 97 Nasal Cannula 4.0 08/25/17 00:55 83 08/25/17 00:53 138/81 Physical Exam HEENT: Head - normocephalic and atraumatic Pupils are equal, round, and reactive to light. Extraocular eye muscles are intact, and sclera are anicteric. Nose - moist nasal mucosa without discharge. Mouth - moist buccal mucosa. Oropharynx is nonerythematous and there is no tonsillar exudate or edema noted. Neck: Supple; no JVD, nuchal rigidity, cervical lymphadenopathy, or auscultated bruits. Heart: Regular rate and rhythm. There is a normal S1 and S2 with no murmurs, clicks, or gallops appreciated. Heart sounds are distant secondary to body habitus. Lungs: Rales in both lung bases. No wheezes or rhonchi. Abdomen: Soft, completely nontender, nondistended, with good bowel sounds. There are no palpable pulsatile masses or hepatosplenomegaly. There is no guarding, rigidity, or rebound noted. Right CVA tenderness. The patient does have some yeast noted under the breast but no obvious skin lesions over the flanks. Extremities: No evidence of cyanosis or clubbing. There are easily palpable peripheral pulses. Legs are wrapped with VONNIE wraps. They were removed. Significant pedal edema with areas of purpura and erythema that are slightly tender to touch. Skin: warm and dry with good turgor and no rashes. Medical Decision & Procedures ER Provider Diagnostic Interpretation: Chest X-Ray: The results were interpreted by me. Stable cardiomegaly. In creased pleural effusion at the left lung base. Atelectasis at the right lung base. Mild pulmonary vascular congestion. Laboratory Results 08/25/17 01:13 Red Blood Count 3.72, Mean Corpuscular Volume 99.7, Mean Corpuscular Hemoglobin 31.2, Mean Corpuscular Hemoglobin Concent 31.3, Mean Platelet Volume 10.2, Neutrophils (%) (Auto) 71.8, Lymphocytes (%) (Auto) 15.2, Monocytes (%) (Auto) 8.1, Eosinophils (%) (Auto) 0.1, Basophils (%) (Auto) 0.1, Neutrophils # (Auto) 5.28, Lymphocytes # (Auto) 1.12, Monocytes # (Auto) 0.60, Eosinophils # (Auto) 0.01, Basophils # (Auto) 0.01 08/25/17 01:13 Test 08/25/17 01:13 08/25/17 01:59 White Blood Count 7.37 K/uL (4.8-10.8) Red Blood Count 3.72 M/uL (4.2-5.4) Hemoglobin 11.6 g/dL (12.0-16.0) Hematocrit 37.1 % (37-47) Mean Corpuscular Volume 99.7 fL (80-100) Mean Corpuscular Hemoglobin 31.2 pg (25-34) Mean Corpuscular Hemoglobin Concent 31.3 g/dl (32-36) Platelet Count 158 K/uL (130-400) Mean Platelet Volume 10.2 fL (7.4-10.4) Neutrophils (%) (Auto) 71.8 % Lymphocytes (%) (Auto) 15.2 % Monocytes (%) (Auto) 8.1 % Eosinophils (%) (Auto) 0.1 % Basophils (%) (Auto) 0.1 % Neutrophils # (Auto) 5.28 K/uL (1.4-6.5) Lymphocytes # (Auto) 1.12 K/uL (1.2-3.4) Monocytes # (Auto) 0.60 K/uL (0.11-0.59) Eosinophils # (Auto) 0.01 K/uL (0-0.5) Basophils # (Auto) 0.01 K/uL (0-0.2) RDW Standard Deviation 58.1 fL (36.4-46.3) RDW Coefficient of Variation 16.0 % (11.5-14.5) Immature Granulocyte % (Auto) 4.7 % Immature Granulocyte # (Auto) 0.35 K/uL (0.00-0.02) Nucleated RBC Absolute Count (auto) 0.03 K/uL (0-0) Nucleated Red Blood Cells % 0.4 % Anion Gap 3.0 mmol/L (3-11) Est Creatinine Clear Calc Drug Dose 57.5 ml/min Estimated GFR () 73.9 Estimated GFR (Non- 63.8 BUN/Creatinine Ratio 22.9 (10-20) Calcium Level 7.6 mg/dl (8.5-10.1) Total Bilirubin 0.7 mg/dl (0.2-1) Aspartate Amino Transf (AST/SGOT) 12 U/L (15-37) Alanine Aminotransferase (ALT/SGPT) 28 U/L (12-78) Alkaline Phosphatase 45 U/L (45-117) Total Creatine Kinase 40 U/L (26-192) Creatine Kinase MB 1.3 ng/ml (0.5-3.6) Creatine Kinase MB Ratio 3.3 (0-3.0) Troponin I < 0.015 ng/ml (0-0.045) Pro-B-Type Natriuretic Peptide 197 pg/ml (0-1800) Total Protein 6.0 gm/dl (6.4-8.2) Albumin 3.0 gm/dl (3.4-5.0) Globulin 3.0 gm/dl (2.5-4.0) Albumin/Globulin Ratio 1.0 (0.9-2) Urine Color DK YELLOW Urine Appearance CLEAR (CLEAR) Urine pH 7.5 (4.5-7.5) Urine Specific [place] 1.018 (1.000-1.030) Urine Protein NEG (NEG) Urine Glucose (UA) NEG (NEG) Urine Ketones NEG (NEG) Urine Occult Blood NEG (NEG) Urine Nitrite NEG (NEG) Urine Bilirubin NEG (NEG) Urine Urobilinogen NEG (NEG) Urine Leukocyte Esterase NEG (NEG) Laboratory results per my review. Medications Administered Medications (Trade) Dose Ordered Sig/Natasha Route Start Time Stop Time Status Last Admin Dose Admin Tramadol HCl (Ultram Tab) 50 mg NOW STAT PO 08/25/17 03:26 08/25/17 03:27 DC 08/25/17 04:06 50 MG Procedure 0326: Ordered Tramadol HCl 50 mg PO. ECG Indication: SOB/dyspnea Rate (beats per minute): 81 Rhythm: normal sinus Findings: no acute ischemic change, no ectopy ED Course 0114: Past medical records reviewed. The patient was evaluated in room B6. A complete history and physical exam was performed. A 12 EKG was obtained. Patient had a chest x-ray as described above. 0303: Upon reevaluation, the patient is resting comfortably. We are going to rewrap her legs. I discussed findings and results with her and her daughter. They verbalized agreement of the treatment plan. The patient was discharged home. 0326: Ordered Tramadol HCl 50 mg PO. Medical Decision The patient is an 82 year old female who presents to the Emergency Room with increased weakness continued shortness of breath, and persistent right flank pain. Differential diagnoses include pyelonephritis, electrolyte abnormality, CHF, pulmonary edema. LABS: White count 70.3 Hemoglobin 11.6 which is her baseline Normal renal function Glucose 84 Cardiac enzymes are negative BNP 197 Calcium 7.6 slightly low Urine was unremarkable The patient has chronic shortness of breath that worsens with exertion. The patient's daughter explains that she's had significant increased weakness and began to complain of right flank pain again which in previous episodes as indicated a urinary tract infection. The urinalysis was unremarkable today. The patient's calcium was slightly low. I have asked her follow up with the PCP to have that rechecked. In the meantime, she is to double her dose of calcium carbonate. The patient's oxygen saturations remained stable on 4 L of O2 which she uses routinely at home. Medication Reconcilliation Current Medication List: was personally reviewed by me Blood Pressure Screening Patient's blood pressure: Elevated blood pressure Blood pressure disposition: Elevated BP felt to be situational Impression Primary Impression: Weakness Additional Impressions: Right flank pain Hypocalcemia Scribe Attestation The scribe's documentation has been prepared under my direction and personally reviewed by me in its entirety. I confirm that the note above accurately reflects all work, treatment, procedures, and medical decision making performed by me. Departure Information Dispostion Home / Self-Care Referrals Michael De Souza M.D. (PCP) Forms HOME CARE DOCUMENTATION FORM, IMPORTANT VISIT INFORMATION, WORK / SCHOOL INSTRUCTIONS Patient Instructions [employer] Additional Instructions Rest Watch the legs closely. Keep wraps in place Return to the ER for worsening symptoms. Follow up with PCP to have the calcium rechecked. Take increased dose of calcium carbonate at bedtime Problem Qualifiers
[2017-08-25 03:21] VITALS: TEMP 36.7
[2017-08-25] MEDS ORDERED: TRAMADOL HCL 50 MG TAB PO STA (03:26)
[2017-08-25 04:03] VITALS: BP 134/76; PULSE 84; O2SAT 96
--- NOTE | 2017-08-25 06:34 | DIAGNOSTIC IMAGING REPORT ---
CHEST ONE VIEW PORTABLE CLINICAL HISTORY: Shortness of breath COMPARISON STUDY: 07/24/2017 FINDINGS: The heart is borderline enlarged. There are postsurgical changes present within the cervical spine and thoracolumbar spine. There are postsurgical changes of bilateral shoulder arthroplasties. There is no failure. There are linear by basilar opacities, likely atelectatic. There is persistent blunting of the costophrenic angles.[ IMPRESSION: Borderline cardiomegaly and bibasal atelectatic change. Persistent blunting of the lateral costophrenic angles suggesting trace effusions Electronically signed by: Edenilson Barrett M.D. 08/25/2017 6:33 AM Dictated Date/Time: 08/25/2017 6:31 AM
== END 2017-08-25 04:03 | disposition home or self-care (01) ==
LOC: EDBD 00:47 → C.EDB 00:48
DX: R53.1 Weakness (principal); E83.51 Hypocalcemia; R06.02 Shortness of breath; Z79.899 Other long term (current) drug therapy; R10.9 Unspecified abdominal pain; Z87.01 Personal history of pneumonia (recurrent)

== ENCOUNTER → 2017-09-05 | Outpatient (CLI) | payer OTHER ==
[~2017-09-05] MED LIST changes: +APIX1TAB3 PO; +CALC12504 PO; +CHOL2000 PO; +CITA20TA4 PO; +CMD5 PO; +HYDR5SYP11 PO; -INSU32MI13 SQ; +LCTXP PO; +LEVO1TAB35 PO; +LINA1CAP2 PO; +LVNIS100 SQ; -LVQ750 PO; +MIRA1TAB3 PO; -NF84 PO; +NUTR-7 PO; +PRD/25 PO; +PRMT25 PO
--- NOTE | 2017-09-07 11:19 | CODING QUERY NO DIAGNOSIS ---
TREATMENT RENDERED WITHOUT A DIAGNOSIS To promote full compliance with coding requirements relating to patient care, physician participation is requested in all cases of dermatology procedural physician uncertainty. Please assist us with providing a diagnosis/symptom for the test(s) below: A diagnosis/symptom was not documented on your Order. A valid diagnosis/symptom is required to bill all insurances. Please remember that we are unable to code a diagnosis of rule out, probable, possible, questionable, or suspected. Tests that require a diagnosis: DOS: 09/05/17 * CALCIUM DIAGNOSIS: * VITAMIN D DIAGNOSIS: Provider Signature: Date: Thank you Erica Ty [employer] Once completed, please kindly fax back to [phone] For questions please call [phone]
--- NOTE | 2017-09-07 11:21 | CODING QUERY NO DIAGNOSIS ---
Valid Physician Order Needed A valid physician order must be submitted in order to properly bill for the service(s) provided, including date of service(s), valid diagnosis, and physician signature. If these tests are done on a recurring basis the original physican order must be submitted in order to code and bill for the service(s) provided. Please fax us the original, signed physician order so that we may expedite billing to [phone] DOS 09/05/17 * CA AND VITAMIN D ORDERED BY DR. SANDHU Thank you Erica [facility] Information Management
== END | disposition home or self-care (01) ==
LOC: C.LABSPEC 13:03
PROVIDERS: ATTEND Internal Medicine
DX: E83.51 Hypocalcemia (principal)

== ENCOUNTER → 2017-09-13 | Outpatient (CLI) | payer OTHER ==
[~2017-09-13] MED LIST changes: +AGMUDL4005 PO; +ATOR10TA82 PO; +BUTACAP7 PO; +Boost Plus Vanilla PO; +CHOLTAB9 PO; +CRD200 PO; +CRFL PO; +CYAN1CAP3 PO; +DEXT30TA7 PO; +DLCS PR; +ELQ25 PO; +FERR1TAB13 PO; +FLUC150T PO; +GENT60IN4 NAE; +GUAI1TAB55 PO; +HYDR-4079 PO; +INSU100I23 SQ; +IPRA-64 INH; -IPRASOL4 INH; +MCRK20 PO; +MGNO400 PO; +MOML PO; +MRLP17 PO; +MULT1LIQ6 PO; +NRN100 PO; +NVLGIPEN SC; +NYSS5 PO; +NYST80OI TOP; +PANT1TAB3 PO; +POLY1SOL6 OP; +POTA-639 PO; +POTA10TA PO; +PRD20 PO; +PROB1TAB16 PO; +ROPI0.5T PO; +RSPS5 PO; +SENN8.6T7 PO; +SPIR25TA PO; +SPIR25TA6 PO; -SPR25 PO; +SPRIN/30 INH; +SUCR5SUS PO; +VANC1SUS PO; +VANC5CAP PO; +VLTG EXT; +VNTHFA/IN INH
[2017-09-13 14:21] LABS: BLOOD UREA NITROGEN 26 mg/dl (7-18); CALCIUM 8.4 mg/dl (8.5-10.1); CARBON DIOXIDE 33 mmol/L (21-32); CREATININE 1.05 mg/dl (0.60-1.20); GLUCOSE 122 mg/dl (70-99); POTASSIUM 4.4 mmol/L (3.5-5.1); SODIUM 138 mmol/L (136-145)
== END | disposition home or self-care (01) ==
LOC: C.LABSPEC 13:24
PROVIDERS: ATTEND Internal Medicine Cardiovascular Disease
DX: D64.9 Anemia, unspecified (principal); E83.51 Hypocalcemia

== ENCOUNTER 2017-09-19 15:09 | Inpatient (IN) | payer OTHER ==
[~2017-09-19] VITALS: Ht 160 cm; Wt 96.9 kg
[~2017-09-19 15:09] MED LIST changes: -AGMUDL4005 PO; -APIX1TAB3 PO; -ATOR10TA82 PO; -BUTACAP7 PO; -Boost Plus Vanilla PO; -CALC12504 PO; -CHOL2000 PO; -CHOLTAB9 PO; -CITA20TA4 PO; -CMD5 PO; -CRD200 PO; -CRFL PO; -CYAN1CAP3 PO; -DEXT30TA7 PO; -DLCS PR; -ELQ25 PO; -FERR1TAB13 PO; -FLUC150T PO; -GABA-113 PO; -GENT60IN4 NAE; -GUAI1TAB55 PO; -HYDR-4079 PO; -HYDR5SYP11 PO; -INSU100I23 SQ; -IPRA-64 INH; +IPRASOL4 INH; -LCTXP PO; -LEVO1TAB35 PO; -LINA1CAP2 PO; -LVNIS100 SQ; -MCRK20 PO; -MGNO400 PO; -MIRA1TAB3 PO; -MOML PO; -MRLP17 PO; -MULT1LIQ6 PO; +NF84 PO; -NRN100 PO; -NUTR-7 PO; -NVLGIPEN SC; -NYSS5 PO; -NYST80OI TOP; -PANT1TAB3 PO; -POLY1SOL6 OP; -POTA-639 PO; -POTA10TA PO; -PRD/25 PO; -PRD20 PO; -PRMT25 PO; -PROB1TAB16 PO; -ROPI0.5T PO; -RSPS5 PO; -SENN8.6T7 PO; -SPIR25TA PO; -SPIR25TA6 PO; +SPR25 PO; -SPRIN/30 INH; -SUCR5SUS PO; -VANC1SUS PO; -VANC5CAP PO; -VLTG EXT; -VNTHFA/IN INH
--- NOTE | 2017-09-19 15:59 | DIAGNOSTIC IMAGING REPORT ---
CHEST ONE VIEW PORTABLE CLINICAL HISTORY: weakness mental status change COMPARISON STUDY: 08/25/2017 FINDINGS: Mild stable cardiomegaly. Chronic pleural and parenchymal change left and to lesser extent right base. Lungs otherwise appear clear. Prior operative changes to both shoulders as well as cervical spine. IMPRESSION: Chronic change. Moderate stable cardiomegaly. No acute process. The above report was generated using voice recognition software. It may contain grammatical, syntax or spelling errors. Electronically signed by: Vignesh Kim M.D. 09/19/2017 3:57 PM Dictated Date/Time: 09/19/2017 3:56 PM
--- NOTE | 2017-09-19 16:32 | EMERGENCY ROOM VISIT NOTE ---
History First contact with patient: 15:29 Chief Complaint: ILLNESS Stated Complaint: PAIN RIGHT SIDE, SOB, GENERAL MALAISE History of Present Illness The patient is a 82 year old female who presents to the Emergency Room via private vehicle accompanied by daughter with complaints of "pain right side, shortness of breath, general malaise". The patient is accompanied by her daughter who provides much of the history. The daughter states that since about Sheng time, about one week ago the patient has been increasingly tired , wants to sleep a lot, has had headaches, right-sided flank pain, shortness of breath, now requiring 5 L of oxygen set of 2, and is been on Cipro for 2 weeks. She is concerned about a potential urinary tract infection. The patient provides very little of the history. Review of Systems A complete 10-point Review of Systems was discussed with the patient, with pertinent positives and negatives listed in the History of Present Illness. All remaining Review of Systems questions can be considered negative unless otherwise specified. 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 (13) UMANA (dyspnea on exertion) (14) Dyspnea, unspecified (15) Gastroesophageal reflux disease (16) Metabolic encephalopathy (17) MRSA pneumonia (18) Syncope due to orthostatic hypotension Family History Diabetes mellitus FH: cancer FH: gallbladder disease FH: heart disease FH: lung disease Hypertension Kidney disease or stones Social History Smoking Status: Never Smoker Alcohol Use: none Drug Use: none Marital Status: Housing Status: lives with family Occupation Status: retired Current/Historical Medications Scheduled Calcitriol (Calcitriol), 0.25 MCG PO DAILY Calcium Carbonate (Calcium Carbonate), 1,250 MG PO HS Cholecalciferol (Vitamin D3), 2,000 UNITS PO BID Citalopram Hydrobromide (Citalopram Hydrobromide), 30 MG PO DAILY Cyanocobalamin (Vitamin B-12), 1,000 MCG PO QAM Dexlansoprazole (Dexilant), 60 MG PO QAM Diclofenac Sodium (Topical) (Voltaren 1% Top Gel), 1 APPLN TOP PRN UD Ferrous Sulfate (Iron), 325 MG PO QAM Gabapentin (Neurontin), 300 MG PO BID Insulin Aspart (Novolog Flexpen), SQ QPM Insulin Glargine (Lantus Solostar), 20 UNITS SC QAM Ipratropium-Albuterol (Combivent Respimat), 1 PUFFS INH QID Levothyroxine Sodium (Levothyroxine Sodium), 100 MCG PO QAM Melatonin (Melatonin), 10 MG PO HS Nystatin (Topical) (Nystop), 1 APPLN TOP TID Potassium Chloride (Potassium Chloride Er), 20 MEQ PO BID Prednisone (Prednisone), 2.5 MG PO DAILY Prednisone Tab (Prednisone), 30 MG PO DAILY Riboflavin (Riboflavin), 400 MG PO QAM Ropinirole (Requip), 0.25-0.5 MG PO HS Simvastatin (Zocor), 20 MG PO HS Spironolactone (Spironolactone), 25 MG PO BID Tiotropium [place] (Spiriva Respimat), 2 PUFF INH DAILY Tramadol (Ultram), 50 MG PO QID Scheduled PRN Acetamin/Butalbital/Caffeine (Fioricet), 1 TAB PO Q4H PRN for Headache Hydrocodone W/ Homatropine (Hycodan 5/1.5MG 5 Ml), 5 ML PO Q4H PRN for COUGH/ PAIN Ipratropium-Albuterol (Duoneb), 1 TREATMENT INH Q4H PRN for SOB/Wheezing Linaclotide (Linzess), 145 MCG PO DAILY PRN for Constipation Lorazepam (Ativan), 0.5 MG PO HS PRN for Sleep Midodrine Hcl (Midodrine Hcl), 1 TAB PO TID PRN for BP<100/60 or if up and about Physical Exam Vital Signs Date Time Temp Pulse Resp B/P (MAP) Pulse Ox O2 Delivery O2 Flow Rate FiO2 09/19/17 20:58 85 20 157/60 95 4.0 09/19/17 20:22 85 09/19/17 19:30 93 20 157/92 96 Nasal Cannula 4.0 09/19/17 17:45 90 20 181/99 97 Nasal Cannula 4.0 09/19/17 16:56 88 18 148/82 96 Nasal Cannula 4.0 09/19/17 16:11 97 Nasal Cannula 4.0 09/19/17 16:09 90 09/19/17 15:35 36.8 90 20 135/86 97 Nasal Cannula 4.0 Physical Exam VITAL SIGNS - Vital signs and nursing notes were reviewed. Stable. GENERAL -82-year-old female appearing her stated age who is in no acute distress. The patient does appear to be ill, is not talking much, has her eyes closed, and has a general erythematous hue. She does appear to be dehydrated. SKIN - Without rashes. No petechial rash. HEAD - NC/AT. EYES - PERRL with EOMI bilaterally. Sclera anicteric. No hyphema. EARS - No deformities of external structures noted on gross examination bilaterally. NOSE - Midline and without cyanosis. No epistaxis or purulent drainage noted. Septum midline without deviation or septal hematoma noted. MOUTH/OROPHARYNX - Without perioral cyanosis. Mouth appears to be dry. LUNGS - Chest wall symmetric without accessory muscle use, intercostals retractions, or central cyanosis. Normal vesicular breath sounds CTA B/L. No wheezes, rales, or rhonchi appreciated. CARDIAC - RRR with S1/S2. No murmur, rubs, or gallops appreciated. ABDOMEN - Abdominal contour normal without pulsations or visible masses. BS normoactive all four quadrants. No tenderness, palpable masses, hepatosplenomegaly, or ascites noted. Right-sided flank pain noted. EXTREMITIES - +5/5 strength noted in UE/LE bilaterally. No peripheral cyanosis noted. No leg swelling. NEUROLOGIC - Cranial nerves II through XII grossly intact. PSYCH - A&O, and cooperates fully with examiner. Medical Decision & Procedures ER Provider Diagnostic Interpretation: CHEST ONE VIEW PORTABLE CLINICAL HISTORY: weakness mental status change COMPARISON STUDY: 08/25/2017 FINDINGS: Mild stable cardiomegaly. Chronic pleural and parenchymal change left and to lesser extent right base. Lungs otherwise appear clear. Prior operative changes to both shoulders as well as cervical spine. IMPRESSION: Chronic change. Moderate stable cardiomegaly. No acute process. The above report was generated using voice recognition software. It may contain grammatical, syntax or spelling errors. Electronically signed by: Vignesh Kim M.D. 09/19/2017 3:57 PM Dictated Date/Time: 09/19/2017 3:56 PM HEAD WITHOUT CONTRAST (CT) CT DOSE: 1425.10 mGy.cm HISTORY: Mental status change confusion TECHNIQUE: Multiaxial CT images of the head were performed without the use of intravenous contrast. A dose lowering technique was utilized adhering to the principles of ALARA. Comparison: 07/07/2017 Findings: The paranasal sinuses and mastoid air cells are clear. The calvarium and skull base are intact. The ventricles and sulci are within normal limits. There is no mass, hematoma, midline shift, or acute infarct. 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 Impression: No acute intracranial abnormality. Chronic and small vessel change. Mild atrophy. The above report was generated using voice recognition software. It may contain grammatical, syntax or spelling errors. Electronically signed by: Vignesh Kim M.D. 09/19/2017 4:46 PM Dictated Date/Time: 09/19/2017 4:43 PM Laboratory Results 09/19/17 16:26 Red Blood Count 3.96, Mean Corpuscular Volume 96.7, Mean Corpuscular Hemoglobin 31.1, Mean Corpuscular Hemoglobin Concent 32.1, Mean Platelet Volume 10.3, Neutrophils (%) (Auto) 84.1, Lymphocytes (%) (Auto) 7.9, Monocytes (%) (Auto) 4.5, Eosinophils (%) (Auto) 0.2, Basophils (%) (Auto) 0.2, Neutrophils # (Auto) 9.30, Lymphocytes # (Auto) 0.87, Monocytes # (Auto) 0.50, Eosinophils # (Auto) 0.02, Basophils # (Auto) 0.02 09/19/17 16:26 Test 09/19/17 16:26 09/19/17 17:55 09/19/17 21:45 White Blood Count 11.05 K/uL (4.8-10.8) Red Blood Count 3.96 M/uL (4.2-5.4) Hemoglobin 12.3 g/dL (12.0-16.0) Hematocrit 38.3 % (37-47) Mean Corpuscular Volume 96.7 fL (80-100) Mean Corpuscular Hemoglobin 31.1 pg (25-34) Mean Corpuscular Hemoglobin Concent 32.1 g/dl (32-36) Platelet Count 178 K/uL (130-400) Mean Platelet Volume 10.3 fL (7.4-10.4) Neutrophils (%) (Auto) 84.1 % Lymphocytes (%) (Auto) 7.9 % Monocytes (%) (Auto) 4.5 % Eosinophils (%) (Auto) 0.2 % Basophils (%) (Auto) 0.2 % Neutrophils # (Auto) 9.30 K/uL (1.4-6.5) Lymphocytes # (Auto) 0.87 K/uL (1.2-3.4) Monocytes # (Auto) 0.50 K/uL (0.11-0.59) Eosinophils # (Auto) 0.02 K/uL (0-0.5) Basophils # (Auto) 0.02 K/uL (0-0.2) RDW Standard Deviation 56.7 fL (36.4-46.3) RDW Coefficient of Variation 16.0 % (11.5-14.5) Immature Granulocyte % (Auto) 3.1 % Immature Granulocyte # (Auto) 0.34 K/uL (0.00-0.02) Prothrombin Time 9.6 SECONDS (9.0-12.0) Prothromb Time International Ratio 0.9 (0.9-1.1) Activated Partial Thromboplast Time 22.4 SECONDS (21.0-31.0) Partial Thromboplastin Ratio 0.9 Anion Gap 9.0 mmol/L (3-11) Est Creatinine Clear Calc Drug Dose 47.3 ml/min Estimated GFR () 58.8 Estimated GFR (Non- 50.7 BUN/Creatinine Ratio 18.5 (10-20) Lactic Acid Level 3.6 mmol/L (0.4-2.0) Calcium Level 8.3 mg/dl (8.5-10.1) Magnesium Level 2.0 mg/dl (1.8-2.4) Total Bilirubin 0.6 mg/dl (0.2-1) Aspartate Amino Transf (AST/SGOT) 14 U/L (15-37) Alanine Aminotransferase (ALT/SGPT) 32 U/L (12-78) Alkaline Phosphatase 60 U/L (45-117) Total Creatine Kinase 40 U/L (26-192) Creatine Kinase MB 1.7 ng/ml (0.5-3.6) Creatine Kinase MB Ratio 4.3 (0-3.0) Total Protein 6.4 gm/dl (6.4-8.2) Albumin 3.2 gm/dl (3.4-5.0) Globulin 3.2 gm/dl (2.5-4.0) Albumin/Globulin Ratio 1.0 (0.9-2) Thyroid Stimulating Hormone (TSH) 2.240 uIu/ml (0.300-4.500) Urine Color DK YELLOW Urine Appearance CLEAR (CLEAR) Urine pH 5.0 (4.5-7.5) Urine Specific [place] 1.018 (1.000-1.030) Urine Protein NEG (NEG) Urine Glucose (UA) NEG (NEG) Urine Ketones NEG (NEG) Urine Occult Blood TRACE (NEG) Urine Nitrite NEG (NEG) Urine Bilirubin NEG (NEG) Urine Urobilinogen NEG (NEG) Urine Leukocyte Esterase NEG (NEG) Urine WBC (Auto) 0 /hpf (0-5) Urine RBC (Auto) 0-4 /hpf (0-4) Urine Hyaline Casts (Auto) 1-5 /lpf (0-5) Urine Epithelial Cells (Auto) 10-20 /lpf (0-5) Urine Bacteria (Auto) NEG (NEG) Medications Administered Medications (Trade) Dose Ordered Sig/Natasha Route Start Time Stop Time Status Last Admin Dose Admin Sodium Chloride 500 ml @ 999 mls/hr Q31M STAT IV 09/19/17 17:06 09/19/17 17:36 DC 09/19/17 17:18 999 MLS/HR Piperacillin Sod/ Tazobactam Sod (Zosyn Iv) 4.5 gm NOW STAT IV 09/19/17 17:29 09/19/17 17:32 DC 09/19/17 20:18 4.5 GM Sodium Chloride 1,000 ml @ 999 mls/hr Q1H1M STAT IV 09/19/17 17:38 09/19/17 18:38 DC 09/19/17 20:07 999 MLS/HR Vancomycin HCl 2000 mg/Sodium Chloride 540 ml @ 200 mls/hr 2030 IV 09/19/17 20:30 09/19/17 23:11 09/19/17 21:10 200 MLS/HR Medical Decision Patient was seen and evaluated as above. She presents to say with pain in the right side, dyspnea, general malaise and increased confusion over the past few days. She is accompanied with her daughter. It's an EKG was obtained and reveals normal sinus rhythm, and when compared with EKG of 08/25/2017 no significant change was found. There is no ectopy or ischemic change. IV access was established, and he but workup was performed. Concern was over sepsis, despite stable vital signs. Lactic acid was elevated at 3.6. Slight leukocytosis. She was given IV fluids, as well as Zosyn and vancomycin were ordered. The origin of the sepsis at this time is not clear. It was difficult obtaining a urine Sample. Slight anemia with red blood cell count at 3.96. Coags normal. She appears dehydrated clinically and a BUN at 19. No evidence of other metabolic abnormality. Patient troponin negative. Urinalysis does not reveal any evidence of infection however culture was ordered. Blood cultures pending. I did discuss the case with the attending physician, and subsequently the hospitalist. Please refer to further documentation regarding her stay. A CT scan of her chest was also ordered over concern for her increased drive in need of oxygen. There was difficulty in obtaining this as the IV disrupted during the CT. CT was ordered to rule out PE. In evaluation treatment this patient following differential diagnoses were obtained: NH, PE, sepsis, among others. Impression Primary Impression: Sepsis Departure Information Dispostion Admitted as an inpatient Condition FAIR Referrals Michael De Souza M.D. (PCP) Patient Instructions My [facility]
[2017-09-19] MEDS ORDERED: CITA20TA4 PO (16:34)
[2017-09-19] MEDS ORDERED: GABA-113 PO (16:35)
[2017-09-19 16:38] LABS: BASO % 0.2 %; BASO ABS # 0.02 K/uL (0-0.2); EOS % 0.2 %; EOS ABS # 0.02 K/uL (0-0.5); HEMATOCRIT 38.3 % (37-47); HEMOGLOBIN 12.3 g/dL (12.0-16.0); IG# 0.34 K/uL (0.00-0.02); LYMPH % 7.9 %; LYMPH ABS # 0.87 K/uL (1.2-3.4); MEAN CELL VOLUME 96.7 fL (80-100); MEAN CORPUSCULAR HEMOGLOBIN 31.1 pg (25-34); MEAN CORPUSCULAR HGB CONC 32.1 g/dl (32-36); MEAN PLATELET VOLUME 10.3 fL (7.4-10.4); MONO % 4.5 %; NEUT % 84.1 %; PLATELET COUNT 178 K/uL (130-400); RED CELL DISTRIBUTION WIDTH SD 56.7 fL (36.4-46.3); WHITE BLOOD COUNT 11.05 K/uL (4.8-10.8)
[2017-09-19] MEDS ORDERED: HYDR5SYP11 PO (16:41)
[2017-09-19] MEDS ORDERED: PRD/25 PO (16:41)
[2017-09-19] MEDS ORDERED: MIRA1TAB3 PO (16:41)
[2017-09-19] MEDS ORDERED: CHOL2000 PO (16:44)
[2017-09-19 16:46] LABS: INR 0.9 (0.9-1.1); PTT PATIENT 22.4 SECONDS (21.0-31.0)
--- NOTE | 2017-09-19 16:48 | DIAGNOSTIC IMAGING REPORT ---
HEAD WITHOUT CONTRAST (CT) CT DOSE: 1425.10 mGy.cm HISTORY: Mental status change confusion TECHNIQUE: Multiaxial CT images of the head were performed without the use of intravenous contrast. A dose lowering technique was utilized adhering to the principles of ALARA. Comparison: 07/07/2017 Findings: The paranasal sinuses and mastoid air cells are clear. The calvarium and skull base are intact. The ventricles and sulci are within normal limits. There is no mass, hematoma, midline shift, or acute infarct. 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 Impression: No acute intracranial abnormality. Chronic and small vessel change. Mild atrophy. The above report was generated using voice recognition software. It may contain grammatical, syntax or spelling errors. Electronically signed by: Vignesh Kim M.D. 09/19/2017 4:46 PM Dictated Date/Time: 09/19/2017 4:43 PM
[2017-09-19 17:01] LABS: ALBUMIN 3.2 gm/dl (3.4-5.0); ALT/SGPT 32 U/L (12-78); AST/SGOT 14 U/L (15-37); BLOOD UREA NITROGEN 19 mg/dl (7-18); CALCIUM 8.3 mg/dl (8.5-10.1); CARBON DIOXIDE 26 mmol/L (21-32); CREATININE 1.04 mg/dl (0.60-1.20); GLUCOSE 151 mg/dl (70-99); POTASSIUM 4.4 mmol/L (3.5-5.1); SODIUM 136 mmol/L (136-145)
[2017-09-19] MEDS ORDERED: SODIUM CHLORIDE 0.9% 500ML 500 ML IV STA (17:06)
[2017-09-19 17:12] LABS: ALKALINE PHOSPHATASE 60 U/L (45-117); CKMB 1.7 ng/ml (0.5-3.6); TOTAL PROTEIN 6.4 gm/dl (6.4-8.2)
[2017-09-19] MEDS ORDERED: OPTIRAY 320 IV PRN (17:15)
[2017-09-19] MEDS ORDERED: PIPERACILLIN/TAZOBACTAM 4.5 GM/100ML D5W IV STA (17:29)
[2017-09-19] MEDS ORDERED: SODIUM CHLORIDE 0.9% 1000ML 1,000 ML IV STA (17:38)
[2017-09-19] MEDS ORDERED: VANCOMYCIN INJ 2,000 MG in SODIUM CHLORIDE 0.9% 250ML 250 ML IV STA (20:06)
[2017-09-19] MEDS ORDERED: VANCOMYCIN INJ 2,000 MG in SODIUM CHLORIDE 0.9% 500ML 500 ML IV SCH (20:30)
--- NOTE | 2017-09-19 21:11 | History and Physical ---
History & Physical Date & Time of Service: Sep 19, 2017 at 20:57 Chief Complaint: Pain Right Side, Sob, General Malaise Primary Care Physician: Michael De Souza M.D. History of Present Illness Source: patient, family 84 years old female with COPD, chronic respiratory failure was on 2 L of oxygen at home currently between 4 and 5 L oxygen supplement. Possible neuromuscular dysfunction, obesity hypoventilation syndrome, possible sleep apnea, and chronic steroid dependent. Presented to the ED with change in mental status, confusion and generalized weakness. Family gradually increased oxygen supplement to 4-5 L. She remains short of breath. Also she has steroids one face and chronic abdominal pain. Recently about 10 days ago she was placed on Cipro for cellulitis. Cellulitis has improved, no diarrhea and no urinary symptoms. Despite of her cellulitis improvement in her mental status started to decline slowly over the past few days. She also appears to be short of breath and her face is flushed. In ED her lactic acid was 3 rest of her vitals and lab were within acceptable range Past Medical/Surgical History Medical Problems: (1) Ambulatory dysfunction Status: Chronic (2) Appendectomy Status: Chronic (3) Asthma Status: Chronic (4) Cervical vertebral fusion Status: Resolved (5) Diaphragmatic paralysis Permanent Comment: Right side, 2009 s/p spinal injection. Status: Chronic (6) UMANA (dyspnea on exertion) Status: Chronic (7) Gastroesophageal reflux disease Status: Chronic (8) Syncope due to orthostatic hypotension Status: Chronic Family History Diabetes mellitus FH: cancer FH: gallbladder disease FH: heart disease FH: lung disease Hypertension Kidney disease or stones Social History Smoking Status: Never Smoker Drug Use: none Marital Status: Housing status: lives with family Occupational Status: retired Immunizations History of Influenza Vaccine: N/A Influenza Vaccine Date: Jun 18, 2012 History of Tetanus Vaccine?: Yes Tetanus Immunization Date: Mar 18, 2004 History of Pneumococcal: Yes Pneumococcal Date: May 31, 2010 History of Hepatitis B Vaccine: No Multi-Drug Resistant Organisms History of MDRO: Yes Type of MDRO: MRSA Allergies Coded Allergies: Pneumococcal Vaccine (Verified Allergy, Severe, SHORTNESS OF BREATH, ) Erythromycin (Verified Allergy, Mild, RASH, 08/25/17) Adhesives (Verified Allergy, Unknown, TAPE-REDNESS, BLISTERS, 08/25/17) Metronidazole (Verified Allergy, Unknown, skin rash, 08/25/17) allergic to generic form Phenazopyridine (Verified Allergy, Unknown, abdominal pain/rash, 08/25/17) Polymyxin B (Verified Allergy, Unknown, 08/25/17) Salicylates (Verified Allergy, Unknown, pt states rash with ASA 325 but not ASA 81mg, 08/25/17) Tetracycline (Verified Allergy, Unknown, RASH, 08/25/17) Morphine (Verified Adverse Reaction, Intermediate, urinary retention - oral morphine only, 08/25/17) Diltiazem (Verified Adverse Reaction, Mild, FLUID RETENTION, 08/25/17) Metoclopramide (Verified Adverse Reaction, Mild, TREMORS, 08/25/17) Bacitracin (Verified Adverse Reaction, Unknown, "MAKES IT WORSE"-OK IF NOT OTC MEDICATION, 08/25/17) OKAY IF NOT OVER THE COUNTER MEDICATION Home Medications Scheduled Calcitriol (Calcitriol), 0.25 MCG PO DAILY Calcium Carbonate (Calcium Carbonate), 1,250 MG PO HS Cholecalciferol (Vitamin D3), 2,000 UNITS PO BID Citalopram Hydrobromide (Citalopram Hydrobromide), 30 MG PO DAILY Cyanocobalamin (Vitamin B-12), 1,000 MCG PO QAM Dexlansoprazole (Dexilant), 60 MG PO QAM Diclofenac Sodium (Topical) (Voltaren 1% Top Gel), 1 APPLN TOP PRN UD Ferrous Sulfate (Iron), 325 MG PO QAM Gabapentin (Neurontin), 300 MG PO BID Insulin Aspart (Novolog Flexpen), SQ QPM Insulin Glargine (Lantus Solostar), 20 UNITS SC QAM Ipratropium-Albuterol (Combivent Respimat), 1 PUFFS INH QID Levothyroxine Sodium (Levothyroxine Sodium), 100 MCG PO QAM Melatonin (Melatonin), 10 MG PO HS Nystatin (Topical) (Nystop), 1 APPLN TOP TID Potassium Chloride (Potassium Chloride Er), 20 MEQ PO BID Prednisone (Prednisone), 2.5 MG PO DAILY Prednisone Tab (Prednisone), 30 MG PO DAILY Riboflavin (Riboflavin), 400 MG PO QAM Ropinirole (Requip), 0.25-0.5 MG PO HS Simvastatin (Zocor), 20 MG PO HS Spironolactone (Spironolactone), 25 MG PO BID Tiotropium [place] (Spiriva Respimat), 2 PUFF INH DAILY Tramadol (Ultram), 50 MG PO QID Scheduled PRN Acetamin/Butalbital/Caffeine (Fioricet), 1 TAB PO Q4H PRN for Headache Hydrocodone W/ Homatropine (Hycodan 5/1.5MG 5 Ml), 5 ML PO Q4H PRN for COUGH/ PAIN Ipratropium-Albuterol (Duoneb), 1 TREATMENT INH Q4H PRN for SOB/Wheezing Linaclotide (Linzess), 145 MCG PO DAILY PRN for Constipation Lorazepam (Ativan), 0.5 MG PO HS PRN for Sleep Midodrine Hcl (Midodrine Hcl), 1 TAB PO TID PRN for BP<100/60 or if up and about Review of Systems Due to patient mental status review of system was unobtainable/unreliable We'll attempt to obtain review of system as needed from staff and family Constitutional: + weakness, + fatigue Physical Exam Vital Signs Date Time Temp Pulse Resp B/P (MAP) Pulse Ox O2 Delivery O2 Flow Rate FiO2 09/19/17 20:22 85 09/19/17 19:30 93 20 157/92 96 Nasal Cannula 4.0 09/19/17 17:45 90 20 181/99 97 Nasal Cannula 4.0 09/19/17 16:56 88 18 148/82 96 Nasal Cannula 4.0 09/19/17 16:11 97 Nasal Cannula 4.0 09/19/17 16:09 90 09/19/17 15:35 36.8 90 20 135/86 97 Nasal Cannula 4.0 General Appearance: + mild distress, + obese Eyes: normal inspection, EOMI ENT: normal ENT inspection, hearing grossly normal Neck: supple Respiratory/Chest: chest non-tender, + respiratory distress, + decreased breath sounds, + crackles, + wheezing Cardiovascular: regular rate, rhythm, no edema, no gallop, no JVD, no murmur Abdomen/GI: normal bowel sounds, no pulsatile mass, + tenderness, + distended Back: normal inspection Extremities/Musculoskelatal: normal inspection, no calf tenderness, normal capillary refill, no pedal edema Neurologic/Psych: conference coordinator II-XII nml as tested, no motor/sensory deficits, + pertinent finding (slightly lethargic but can be aroused easily, followed simple commands and answer simple questions, moves all extremities) Skin: normal color, warm/dry, no rash Diagnostics Laboratory Results Results Past 24 Hours Test 09/19/17 16:26 09/19/17 17:55 Range/Units White Blood Count 11.05 4.8-10.8 K/uL Red Blood Count 3.96 4.2-5.4 M/uL Hemoglobin 12.3 12.0-16.0 g/dL Hematocrit 38.3 37-47 % Mean Corpuscular Volume 96.7 80-100 fL Mean Corpuscular Hemoglobin 31.1 25-34 pg Mean Corpuscular Hemoglobin Concent 32.1 32-36 g/dl Platelet Count 178 130-400 K/uL Mean Platelet Volume 10.3 7.4-10.4 fL Neutrophils (%) (Auto) 84.1 % Lymphocytes (%) (Auto) 7.9 % Monocytes (%) (Auto) 4.5 % Eosinophils (%) (Auto) 0.2 % Basophils (%) (Auto) 0.2 % Neutrophils # (Auto) 9.30 1.4-6.5 K/uL Lymphocytes # (Auto) 0.87 1.2-3.4 K/uL Monocytes # (Auto) 0.50 0.11-0.59 K/uL Eosinophils # (Auto) 0.02 0-0.5 K/uL Basophils # (Auto) 0.02 0-0.2 K/uL RDW Standard Deviation 56.7 36.4-46.3 fL RDW Coefficient of Variation 16.0 11.5-14.5 % Immature Granulocyte % (Auto) 3.1 % Immature Granulocyte # (Auto) 0.34 0.00-0.02 K/uL Prothrombin Time 9.6 9.0-12.0 SECONDS Prothromb Time International Ratio 0.9 0.9-1.1 Activated Partial Thromboplast Time 22.4 21.0-31.0 SECONDS Partial Thromboplastin Ratio 0.9 Sodium Level 136 136-145 mmol/L Potassium Level 4.4 3.5-5.1 mmol/L Chloride Level 101 98-107 mmol/L Carbon Dioxide Level 26 21-32 mmol/L Anion Gap 9.0 3-11 mmol/L Blood Urea Nitrogen 19 7-18 mg/dl Creatinine 1.04 0.60-1.20 mg/dl Est Creatinine Clear Calc Drug Dose 47.3 ml/min Estimated GFR () 58.8 Estimated GFR (Non- 50.7 BUN/Creatinine Ratio 18.5 10-20 Random Glucose 151 70-99 mg/dl Lactic Acid Level 3.6 0.4-2.0 mmol/L Calcium Level 8.3 8.5-10.1 mg/dl Magnesium Level 2.0 1.8-2.4 mg/dl Total Bilirubin 0.6 0.2-1 mg/dl Aspartate Amino Transf (AST/SGOT) 14 15-37 U/L Alanine Aminotransferase (ALT/SGPT) 32 12-78 U/L Alkaline Phosphatase 60 45-117 U/L Total Creatine Kinase 40 26-192 U/L Creatine Kinase MB 1.7 0.5-3.6 ng/ml Creatine Kinase MB Ratio 4.3 0-3.0 Troponin I < 0.015 0-0.045 ng/ml Total Protein 6.4 6.4-8.2 gm/dl Albumin 3.2 3.4-5.0 gm/dl Globulin 3.2 2.5-4.0 gm/dl Albumin/Globulin Ratio 1.0 0.9-2 Thyroid Stimulating Hormone (TSH) 2.240 0.300-4.500 uIu/ml Urine Color DK YELLOW Urine Appearance CLEAR CLEAR Urine pH 5.0 4.5-7.5 Urine Specific [place] 1.018 1.000-1.030 Urine Protein NEG NEG Urine Glucose (UA) NEG NEG Urine Ketones NEG NEG Urine Occult Blood TRACE NEG Urine Nitrite NEG NEG Urine Bilirubin NEG NEG Urine Urobilinogen NEG NEG Urine Leukocyte Esterase NEG NEG Urine WBC (Auto) 0 0-5 /hpf Urine RBC (Auto) 0-4 0-4 /hpf Urine Hyaline Casts (Auto) 1-5 0-5 /lpf Urine Epithelial Cells (Auto) 10-20 0-5 /lpf Urine Bacteria (Auto) NEG NEG Microbiology Results 09/19/17 Blood Culture, Received Pending 09/19/17 Blood Culture, Received Pending 09/19/17 Urine Culture, Received Pending Impression Assessment and Plan 84 years old female with COPD, chronic respiratory failure was on 2 L of oxygen at home currently between 4 and 5 L oxygen supplement. Possible neuromuscular dysfunction, obesity hypoventilation syndrome, possible sleep apnea, and chronic steroid dependent. Presented to the ED with change in mental status, confusion and generalized weakness. 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 Obtain ABG Bronchodilators BiPAP as needed Consult nuisance animal damage control agent Heparin for DVT prophylaxis
[2017-09-19] MEDS ORDERED: POLYETHYLENE (MIRALAX) 17 GM PACK PO PRN (21:15)
[2017-09-19] MEDS ORDERED: HYDROCODONE/HOMATROPINE SYRUP 5MG/1.5MG 5ML UDP PO PRN (21:15)
[2017-09-19] MEDS ORDERED: ZOLPIDEM TARTRATE 5 MG TAB PO PRN ×2 (21:15)
[2017-09-19] MEDS ORDERED: GLUCOSE 40% GEL 15 GM TUBE PO PRN (21:15)
[2017-09-19] MEDS ORDERED: ONDANSETRON INJ 2 MG/ML 2 ML VIAL IV PRN (21:15)
[2017-09-19] MEDS ORDERED: MAGNESIUM HYDROXIDE SUSP 30 ML UDC PO PRN (21:15)
[2017-09-19] MEDS ORDERED: ACETAMINOPHEN 325 MG TAB PO PRN (21:15)
[2017-09-19] MEDS ORDERED: MIDODRINE 2.5 MG TAB PO PRN (21:15)
[2017-09-19] MEDS ORDERED: GLUCOSE 10 TABS/TUBE PO PRN (21:15)
[2017-09-19] MEDS ORDERED: GLUCAGON FOR INJ 1 MG VIAL SQ PRN (21:15)
[2017-09-19] MEDS ORDERED: ALUMINUM/MAGNESIUM/SIMETH (MAALOX MAX) 30 ML UDC PO PRN (21:15)
[2017-09-19] MEDS ORDERED: DEXTROSE 50% 50 ML SYR IV PRN (21:15)
[2017-09-19] MEDS ORDERED: LORAZEPAM 0.5 MG TAB PO PRN (21:15)
[2017-09-19] MEDS ORDERED: PHARMACY GLYCEMIC MGMT CONSULT PRN (21:55)
[2017-09-19] MEDS ORDERED: VANCOMYCIN CONSULT ACTIVE PRN (22:15)
[2017-09-19 22:32] LABS: LIPASE 106 U/L (73-393)
[2017-09-19 23:04] VITALS: BP 151/83; PULSE 77; TEMP 36.4; O2SAT 99; BMI 37.5
[2017-09-19] MEDS ORDERED: LEVOFLOXACIN / D5W 500 MG in PREMIXED IN D5W 100 ML IV SCH (23:30)
[2017-09-20] VITALS (14 sets, daily range): BP systolic 135–165; BP diastolic 66–99; PULSE 75–109; TEMP 36.6–37.2; O2SAT 90–99; Ht 160 cm; Wt 96.9 kg
[2017-09-20] MEDS: SODIUM CHLORIDE 0.9% 1000ML 1,000 ML IV SCH (02:11)
[2017-09-20] MEDS ORDERED: HEPARIN IV BOLUS 6,000 UNIT in SYRINGE 0 ML IV ONE (05:00)
[2017-09-20 05:09] LABS: BASO % 0.2 %; BASO ABS # 0.02 K/uL (0-0.2); EOS % 0.2 %; EOS ABS # 0.02 K/uL (0-0.5); HEMATOCRIT 35.5 % (37-47); HEMOGLOBIN 11.7 g/dL (12.0-16.0); IG# 0.35 K/uL (0.00-0.02); LYMPH % 15.6 %; MEAN CELL VOLUME 95.9 fL (80-100); MEAN CORPUSCULAR HEMOGLOBIN 31.6 pg (25-34); MEAN PLATELET VOLUME 10.3 fL (7.4-10.4); MONO % 8.3 %; MONO ABS # 0.69 K/uL (0.11-0.59); NEUT % 71.5 %; NEUT ABS # 5.98 K/uL (1.4-6.5); PLATELET COUNT 165 K/uL (130-400); RED CELL DISTRIBUTION WIDTH CV 16.2 % (11.5-14.5); RED CELL DISTRIBUTION WIDTH SD 56.2 fL (36.4-46.3); WHITE BLOOD COUNT 8.36 K/uL (4.8-10.8)
[2017-09-20 05:19] LABS: PTT PATIENT 23.1 SECONDS (21.0-31.0)
[2017-09-20 05:41] LABS: ALBUMIN 2.9 gm/dl (3.4-5.0); CALCIUM 7.8 mg/dl (8.5-10.1); CREATININE 0.82 mg/dl (0.60-1.20); PHOSPHORUS 2.8 mg/dl (2.5-4.9); POTASSIUM 3.7 mmol/L (3.5-5.1); TOTAL PROTEIN 5.9 gm/dl (6.4-8.2)
[2017-09-20] MEDS ORDERED: ENOXAPARIN 30 MG/0.3 ML SYR SC SCH (06:00)
[2017-09-20] MEDS: HEPARIN 25,000 UNIT/500ML D5W 500 ML IV PRN (06:03)
[2017-09-20 06:28] LABS: HEMOGLOBIN A1C 6.8 % (4.5-5.6)
[2017-09-20] MEDS: INSULIN ASPART 100 UNITS/ML 3 ML PEN SC SCH ×4 (06:45→20:37)
[2017-09-20] MEDS: LEVOTHYROXINE 100 MCG TAB PO SCH (06:48)
--- NOTE | 2017-09-20 07:05 | DIAGNOSTIC IMAGING REPORT ---
ULTRASOUND BILATERAL LOWER EXTREMITY VENOUS CLINICAL HISTORY: Dyspnea. COMPARISON STUDY: Bilateral lower extremity venous ultrasound dated 01/14/2017. TECHNIQUE: Real-time, grayscale, and color Doppler sonography of the deep veins of the right and left lower extremity was performed from the inguinal crease to the calf. Compression and augmentation were utilized. FINDINGS: Right lower extremity: There is nearly occlusive deep venous thrombosis identified within the proximal popliteal vein and within one of the 2 duplicated distal popliteal veins. Deep venous thrombosis is also seen within the right calf within one of the posterior tibial veins. The remaining calf vessels are clear. The common femoral and superficial femoral veins are patent and normally compressible. The greater saphenous vein and the profunda femoris vein at the junction with the common femoral vein are clear. Left lower extremity: Nonocclusive deep venous thrombosis is seen within the proximal superficial femoral vein. Deep venous thrombosis is also seen in the calf within one of the peroneal veins. The common femoral, mid to distal portions of the superficial femoral, and popliteal veins are patent and normally compressible. The greater saphenous vein and the profunda femoris vein at the junction with the common femoral vein are clear. IMPRESSION: Bilateral deep venous thrombosis as above. Electronically signed by: Justo Mejias M.D. 09/20/2017 7:04 AM Dictated Date/Time: 09/20/2017 7:02 AM
[2017-09-20] MEDS: ALBUT/IPRATROP 3MG/0.5MG NEB 3 ML VIAL INH SCH ×4 (08:13→20:54)
[2017-09-20] MEDS ORDERED: INSULIN GLARGINE SOLOSTAR 100 UNITS/ML 3 ML PEN SC SCH ×2 (09:00)
[2017-09-20] MEDS ORDERED: VANCOMYCIN INJ 1,000 MG in SODIUM CHLORIDE 0.9% 250ML 250 ML IV SCH (09:00)
[2017-09-20] MEDS ORDERED: BOOST PLUS VANILLA PO SCH (09:00)
[2017-09-20] MEDS: LACTOBACILLUS ACIDOPHILUS 1 GM PACK PO SCH ×3 (09:07→16:49)
[2017-09-20] MEDS: CITALOPRAM 20 MG TAB PO SCH (09:07)
[2017-09-20] MEDS: CALCITRIOL 0.25 MCG CAP PO SCH (09:08)
[2017-09-20] MEDS: GABAPENTIN 300 MG CAP PO SCH ×2 (09:08→21:26)
[2017-09-20] MEDS: NYSTATIN POWDER 15GM BTL EXT SCH ×3 (09:09→21:25)
[2017-09-20] MEDS: SPIRONOLACTONE 25 MG TAB PO SCH ×2 (09:09→21:25)
[2017-09-20] MEDS: TRAMADOL HCL 50 MG TAB PO SCH ×4 (09:12→21:25)
--- NOTE | 2017-09-20 09:36 | Family Medicine Progress Note ---
Progress Note Date of Service Sep 20, 2017. Subjective Pt evaluation today including: conversation w/ patient, physical exam, chart review Pain: chest pain, abdominal pain PO Intake: tolerating Voiding: no voiding problems This AM pt reported sob, cp (pleuritic) and abdominal pain (chronic). Also reported dizziness. Denied n/v. Constitutional: No fever, No chills Respiratory: + shortness of breath Cardiovascular: + chest pain Abdomen: + pain, No nausea, No vomiting Female : No dysuria Medications Current Inpatient Medications Medications (Trade) Dose Ordered Sig/Natasha Route Start Time Stop Time Status Last Admin Dose Admin Ioversol (Optiray 320) 111 ml UD PRN IV 09/19/17 17:15 09/23/17 17:14 Calcitriol (Rocaltrol Cap) 0.25 mcg DAILY PO 09/20/17 09:00 10/20/17 08:59 09/20/17 09:08 0.25 MCG Citalopram Hydrobromide (celeXA TAB) 30 mg DAILY PO 09/20/17 09:00 10/20/17 08:59 09/20/17 09:07 30 MG Gabapentin (Neurontin Cap) 300 mg BID PO 09/20/17 09:00 10/20/17 08:59 09/20/17 09:08 300 MG Hydrocodone Bit/ Homatropine Methylb (Hycodan Syrup) 5 ml Q4H PRN PO 09/19/17 21:15 10/03/17 21:14 Levothyroxine Sodium (Synthroid Tab) 100 mcg DAILYBB PO 09/20/17 06:00 10/20/17 06:59 09/20/17 06:48 100 MCG Lorazepam (Ativan Tab) 0.5 mg HS PRN PO 09/19/17 21:15 10/19/17 21:14 Midodrine (Proamatine Tab) 2.5 mg TID PRN PO 09/19/17 21:15 10/19/17 21:14 Nystatin (Mycostatin Powder) 1 appln TID EXT 09/20/17 09:00 10/20/17 08:59 09/20/17 09:09 1 APPLN Prednisone (PredniSONE TAB) 2.5 mg DAILY PO 09/20/17 09:00 10/20/17 08:59 09/20/17 09:08 2.5 MG Prednisone (PredniSONE TAB) 30 mg DAILY PO 09/20/17 09:00 10/20/17 08:59 09/20/17 09:08 30 MG Ropinirole HCl (Requip Tab) 0.25 mg HS PO 09/20/17 21:00 10/20/17 20:59 Simvastatin (Zocor Tab) 20 mg HS PO 09/20/17 21:00 10/20/17 20:59 Spironolactone (Aldactone Tab) 25 mg BID PO 09/20/17 09:00 10/20/17 08:59 09/20/17 09:09 25 MG Tramadol HCl (Ultram Tab) 50 mg QID PO 09/20/17 09:00 10/20/17 08:59 09/20/17 09:12 50 MG Albuterol/ Ipratropium (Duoneb) 3 ml QIDR INH 09/20/17 08:00 10/20/17 07:59 Levofloxacin 500 mg/Prmx 100 ml @ 100 mls/hr Q24H IV 09/19/17 23:30 09/21/17 23:29 09/20/17 02:11 100 MLS/HR Lactobacillus Acidophilus (Lactinex Granules Pack) 1 gm TIDM PO 09/20/17 07:15 10/20/17 07:59 09/20/17 09:07 1 GM Sodium Chloride 1,000 ml @ 50 mls/hr Q20H IV 09/19/17 21:11 10/19/17 21:10 09/20/17 02:11 50 MLS/HR Acetaminophen (Tylenol Tab) 650 mg Q4H PRN PO 09/19/17 21:15 10/19/17 21:14 Al Hydrox/Mg Hydrox/Simethicone (Maalox Max Susp) 15 ml Q4H PRN PO 09/19/17 21:15 10/19/17 21:14 Magnesium Hydroxide (Milk Of Magnesia Susp) 30 ml Q12H PRN PO 09/19/17 21:15 10/19/17 21:14 Zolpidem Tartrate (Ambien Tab) 5 mg HSZ PRN PO 09/19/17 21:15 10/19/17 21:14 Ondansetron HCl (Zofran Inj) 4 mg Q6H PRN IV 09/19/17 21:15 10/19/17 21:14 Polyethylene (Miralax Powder Packet) 17 gm DAILY PRN PO 09/19/17 21:15 10/19/17 21:14 Insulin Aspart (novoLOG ASPART) SLIDING SCALE If C... ACHS SC 09/20/17 06:45 10/20/17 06:59 Glucose (Glucose 40% Gel) 15-30 GRAMS 15 GRAMS... UD PRN PO 09/19/17 21:15 10/19/17 21:14 Glucose (Glucose Chew Tab) 4-8 Tablets 4 Tabl... UD PRN PO 09/19/17 21:15 10/19/17 21:14 Dextrose (Dextrose 50% 50ML Syringe) 25-50ML OF 50% DW IV FOR... UD PRN IV 09/19/17 21:15 10/19/17 21:14 Glucagon (Glucagon Inj) 1 mg UD PRN SQ 09/19/17 21:15 10/19/17 21:14 Miscellaneous Information (Consult Glycemic Management Pharmacy) 1 ea UD PRN N/A 09/19/17 21:55 10/19/17 21:54 Enteral Nutritional Formula (Boost Plus Vanilla) 1 can BID PO 09/20/17 09:00 10/20/17 08:59 09/20/17 09:12 1 CAN Vancomycin HCl (Consult) 1 ea UD PRN N/A 09/19/17 22:15 10/19/17 22:14 Heparin Sodium/ Dextrose 500 ml @ 25 mls/hr Q20H PRN IV 09/20/17 05:00 10/20/17 04:59 09/20/17 06:03 25 MLS/HR Insulin Glargine (Lantus Solostar Pen) 15 units QAM SC 09/20/17 09:00 10/20/17 08:59 09/20/17 09:13 15 UNITS Vancomycin HCl 1500 mg/Sodium Chloride 530 ml @ 200 mls/hr Q16H IV 09/20/17 12:00 09/22/17 11:59 Objective Vital Signs Date Time Temp Pulse Resp B/P (MAP) Pulse Ox O2 Delivery O2 Flow Rate FiO2 09/20/17 06:09 91 20 156/94 (114) 95 Nasal Cannula 3.0 1/3/18 04:00 Nasal Cannula 4.0 09/20/17 01:22 79 99 3.0 09/19/17 23:59 Nasal Cannula 4.0 09/19/17 23:04 36.4 77 16 151/83 99 Nasal Cannula 4.0 09/19/17 22:29 36.9 84 18 167/91 96 Room Air 4.0 09/19/17 20:58 85 20 157/60 95 4.0 09/19/17 20:22 85 09/19/17 19:30 93 20 157/92 96 Nasal Cannula 4.0 09/19/17 17:45 90 20 181/99 97 Nasal Cannula 4.0 09/19/17 16:56 88 18 148/82 96 Nasal Cannula 4.0 09/19/17 16:11 97 Nasal Cannula 4.0 09/19/17 16:09 90 09/19/17 15:35 36.8 90 20 135/86 97 Nasal Cannula 4.0 Physical Exam General Appearance: no apparent distress Eyes: + pertinent finding (teary) Neck: supple Respiratory/Chest: chest non-tender, lungs clear, + decreased breath sounds ( slightly ) Cardiovascular: regular rate, rhythm, no murmur Abdomen: normal bowel sounds, soft, + tenderness (diffuse) Extremities: non-tender, no pedal edema Laboratory Results 09/20/17 04:59 Red Blood Count 3.70, Mean Corpuscular Volume 95.9, Mean Corpuscular Hemoglobin 31.6, Mean Corpuscular Hemoglobin Concent 33.0, Mean Platelet Volume 10.3, Neutrophils (%) (Auto) 71.5, Lymphocytes (%) (Auto) 15.6, Monocytes (%) (Auto) 8.3, Eosinophils (%) (Auto) 0.2, Basophils (%) (Auto) 0.2, Neutrophils # (Auto) 5.98, Lymphocytes # (Auto) 1.30, Monocytes # (Auto) 0.69, Eosinophils # (Auto) 0.02, Basophils # (Auto) 0.02 09/20/17 04:59 Test 09/19/17 16:26 09/19/17 17:55 09/19/17 21:45 09/19/17 23:10 Total Creatine Kinase 40 U/L (26-192) Creatine Kinase MB 1.7 ng/ml (0.5-3.6) Creatine Kinase MB Ratio 4.3 (0-3.0) Thyroid Stimulating Hormone (TSH) 2.240 uIu/ml (0.300-4.500) Urine Color DK YELLOW Urine Appearance CLEAR (CLEAR) Urine pH 5.0 (4.5-7.5) Urine Specific [place] 1.018 (1.000-1.030) Urine Protein NEG (NEG) Urine Glucose (UA) NEG (NEG) Urine Ketones NEG (NEG) Urine Occult Blood TRACE (NEG) Urine Nitrite NEG (NEG) Urine Bilirubin NEG (NEG) Urine Urobilinogen NEG (NEG) Urine Leukocyte Esterase NEG (NEG) Urine WBC (Auto) 0 /hpf (0-5) Urine RBC (Auto) 0-4 /hpf (0-4) Urine Hyaline Casts (Auto) 1-5 /lpf (0-5) Urine Epithelial Cells (Auto) 10-20 /lpf (0-5) Urine Bacteria (Auto) NEG (NEG) Troponin I < 0.015 ng/ml (0-0.045) Lipase 106 U/L (73-393) Arterial Blood pH 7.43 (7.35-7.45) Arterial Blood Partial Pressure CO2 40 mmHg (35-46) Arterial Blood Partial Pressure O2 130 mm/Hg (80-95) Arterial Blood HCO3 26 mmol/L (19-24) Arterial Blood Oxygen Saturation 98.8 % (90-95) Arterial Blood Base Excess 1.5 mEq/L (-9-1.8) Arterial Blood Gas Delivery 4.5 John Test POS (POS) Test 09/20/17 04:59 White Blood Count 8.36 K/uL (4.8-10.8) Red Blood Count 3.70 M/uL (4.2-5.4) Hemoglobin 11.7 g/dL (12.0-16.0) Hematocrit 35.5 % (37-47) Mean Corpuscular Volume 95.9 fL (80-100) Mean Corpuscular Hemoglobin 31.6 pg (25-34) Mean Corpuscular Hemoglobin Concent 33.0 g/dl (32-36) Platelet Count 165 K/uL (130-400) Mean Platelet Volume 10.3 fL (7.4-10.4) Neutrophils (%) (Auto) 71.5 % Lymphocytes (%) (Auto) 15.6 % Monocytes (%) (Auto) 8.3 % Eosinophils (%) (Auto) 0.2 % Basophils (%) (Auto) 0.2 % Neutrophils # (Auto) 5.98 K/uL (1.4-6.5) Lymphocytes # (Auto) 1.30 K/uL (1.2-3.4) Monocytes # (Auto) 0.69 K/uL (0.11-0.59) Eosinophils # (Auto) 0.02 K/uL (0-0.5) Basophils # (Auto) 0.02 K/uL (0-0.2) RDW Standard Deviation 56.2 fL (36.4-46.3) RDW Coefficient of Variation 16.2 % (11.5-14.5) Immature Granulocyte % (Auto) 4.2 % Immature Granulocyte # (Auto) 0.35 K/uL (0.00-0.02) Prothrombin Time 10.0 SECONDS (9.0-12.0) Prothromb Time International Ratio 1.0 (0.9-1.1) Activated Partial Thromboplast Time 23.1 SECONDS (21.0-31.0) Partial Thromboplastin Ratio 0.9 Anion Gap 5.0 mmol/L (3-11) Est Creatinine Clear Calc Drug Dose 60.3 ml/min Estimated GFR () 78.3 Estimated GFR (Non- 67.6 BUN/Creatinine Ratio 16.4 (10-20) Estimated Average Glucose 148 mg/dl Hemoglobin A1c 6.8 % (4.5-5.6) Lactic Acid Level 1.0 mmol/L (0.4-2.0) Calcium Level 7.8 mg/dl (8.5-10.1) Phosphorus Level 2.8 mg/dl (2.5-4.9) Magnesium Level 2.0 mg/dl (1.8-2.4) Total Bilirubin 0.7 mg/dl (0.2-1) Aspartate Amino Transf (AST/SGOT) 14 U/L (15-37) Alanine Aminotransferase (ALT/SGPT) 30 U/L (12-78) Alkaline Phosphatase 56 U/L (45-117) Total Protein 5.9 gm/dl (6.4-8.2) Albumin 2.9 gm/dl (3.4-5.0) Globulin 3.0 gm/dl (2.5-4.0) Albumin/Globulin Ratio 1.0 (0.9-2) Date/Time Source Procedure Growth Status 09/20/17 01:07 Nasal MRSA DNA Surveillance Screen - Final Specimen Positive for MRSA by DNA Probe Complete Assessment and Plan 84 years old female with COPD, chronic respiratory failure was on 2 L of oxygen at home currently between 3L NC. Possible neuromuscular dysfunction, obesity hypoventilation syndrome, possible sleep apnea, and chronic steroid dependence. Bilateral DVTs - Venous doppler - On heparin drip Acute and chronic respiratory failure multifactorial - Hx of obesity hypoventilation syndrome, Obstructive sleep apnea, Diaphragmatic paralysis/neuromuscular disorder, Steroid myopathy (Chronic steroid dependence) - PE rule out with CTA - CTA pending - complete after 24 hrs given induration - Levofloxacin for possible PNA Metabolic encephalopathy with lactic acidemia - improved - Lactic acid improved to 1 from 3.6 - ABD wnl SIRS present on admission with no obvious cause of infection - Received Vanc and Zosyn - UA neg - UCx pending - BCx pending Acute and chronic respiratory failure multifactorial - Hx of obesity hypoventilation syndrom- Continue same dose prednisone, Obstructive sleep apnea, Diaphragmatic paralysis/neuromuscular disorder, Steroid myopathy (Chronic steroid dependence) - chronic prednisone chronic dosage - inhalers GERD Heparin for DVT prophylaxis History Resident Physician Supervision Note: I was present with Dr. Betancourt during the history and exam. I discussed the case with the resident and agree with the findings and plan as documented in the note. Any exceptions or clarifications are listed here. Pt reports stable, nonworsening shortness of breath with intermittently productive cough of yellow sputum with accompanying discomfort in the chest/ shoulder which is reproducible to light touch. Facial pain b/l with minimal congestion, also present with light touch. Reports no n/v, abd pain, lightheadedness. General Appearance: mild distress, obese Respiratory: no respiratory distress, decreased breath sounds, rales (b/l LL) Cardiovascular: normal peripheral pulses, regular rate, rhythm, no murmur Extremities: other (IV site infiltration on the right with minimal persistent pain on examination) Assessment/Plan 84 y/o female h/o COPD on 2L at home presents w/ acute onset shortness of breath Acute on chronic respiratory failure with concern for underlying PE - CT chest for PE evaluation, AC as noted below, continue prednisone SIRS w/o source - presently afebrile, without leukocytosis - d/c abx, f/u Cx, procalcitonin, monitor for changes DVT, bilateral - continue heparin - likely transition to warfarin HTN - continue present management DMII - on chronic steroid therapy - d/c'd previously on lantus 20U w/ ISS Chronic adrenal insufficiency secondary to chronic steroid use HLD - continue simvastatin RLS - h/o requip Hypothyroidism - continue levothyroxine Depression - home regimen of citalopram 40 mg daily, and ativan 0.5 mg Hs prn for sleep 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
--- NOTE | 2017-09-20 10:12 | Clinical Documentation Query ---
CLINICAL DOCUMENTATION QUERY 82-y/o female with complaints pain right side, shortness of breath, and general malaise. In your clinical opinion is this patient being managed for: (x ) Possible PE WITH DVT B/L ( ) Not Agree ( ) Other explanation of clinical findings (Please Explain) ( ) Unable to determine (Please Define) ( ) Need to Discuss The medical record reflects the following clinical findings, treatment, and risk factors. Clinical Indicators: +Bilateral DVT's, tachycardia 98, respiratory failure Treatment: O2, Heparin gtt, Venous dopplers Risk Factors: Age, obesity, Prednisone therapy Please clarify and document your clinical opinion in the progress notes and discharge summary. Terms such as "probable", "suspected", "likely", "questionable", "possible", or "still to be ruled out" are acceptable. IF IN AGREEMENT, YOU MUST DOCUMENT ABOVE DIAGNOSTIC STATEMENT IN DAILY PROGRESS NOTES AND DISCHARGE SUMMARY. This document is not part of the patient's record. Thank You, Wojciech Cid, RN [phone]
--- NOTE | 2017-09-20 10:13 | Clinical Documentation Query ---
CLINICAL DOCUMENTATION QUERY 82-y/o female with complaints pain right side, shortness of breath, and general malaise. In your clinical opinion is this patient being managed for: ( ) Possible PE ( ) Not Agree ( ) Other explanation of clinical findings (Please Explain) ( ) Unable to determine (Please Define) ( ) Need to Discuss The medical record reflects the following clinical findings, treatment, and risk factors. Clinical Indicators: +Bilateral DVT's, tachycardia 98, respiratory failure Treatment: O2, Heparin gtt, Venous dopplers Risk Factors: Age, obesity, Prednisone therapy Please clarify and document your clinical opinion in the progress notes and discharge summary. Terms such as "probable", "suspected", "likely", "questionable", "possible", or "still to be ruled out" are acceptable. IF IN AGREEMENT, YOU MUST DOCUMENT ABOVE DIAGNOSTIC STATEMENT IN DAILY PROGRESS NOTES AND DISCHARGE SUMMARY. This document is not part of the patient's record. Thank You, Wojciech Cid, RN [phone]
--- NOTE | 2017-09-20 10:27 | Pulmonary Consultation ---
History General Date of Service: Sep 20, 2017. Stated Complaint: Metabolic Encephalopathy HPI The patient is a 82 year old female who presents to [facility] with complaints of Metabolic Encephalopathy. The patient's primary care provider is Michael De Souza M.D.. Mrs. Philip is an 82-year-old female who presented to the emergency room accompanied by her daughter with complaints of one-week history right-sided pleuritic chest pain chest pain, worsening shortness of breath at rest and generalized malaise and fatigue. Per EMR and patient she states that she's been having increased feelings of fatigue associated with shortness of breath and right-sided chest and flank pain. Patient has some dyspnea at baseline secondary to atelectasis, diaphragmatic weakness and deconditioning. Per daughter she's also had episodes of confusion. She states that chest pain is exacerbated with deep inspiration. She denies any fevers, chills, lightheadedness or dizziness. She states that she has had intermittent headaches. She has home oxygen for chronic hypoxic respiratory failure and is normally on 2 L/m nasal cannula however this was increased to 5 L/m. She was also treated for cellulitis with Cipro over the last 2 weeks. Patient currently denies any genitourinary or gastrointestinal symptoms. She states that she has had decreased appetite the last few days. She is unsure of any weight loss. Of note patient also noticed that she's had increased bilateral lower extremity swelling. She denies any sick contacts or recent travel. Patient is well known to our pulmonary service for chronic dyspnea and cough. She had bronchoscopies performed on 06/29/10, 01/25/2016 which grew yeast from right middle lobe, 06/30/2016 which again grew yeast for right lower lobe, 11/28 which grew MRSA and yeast from right middle lobe, 01/15/2017 which grew Rabia albicans. She had a right wound culture which grew pseudomonas aeruginosa and enterococcus faecalis. Most recently she had a urine culture from 07/24/2017 positive for Escherichia coli. She also had a right heart cath done on 04/17/2017 which showed normal right heart pressures. Upon arrival to the ER, temperature 36.9, pulse 93, respiratory rate 20, blood pressure 157/92 saturating 96% on 4 L nasal cannula. EKG showed normal sinus rhythm at 90 bpm. Laboratory data showed a white blood cell count 11, hemoglobin 12.3, platelet count of 178. Sodium 136, potassium 4.4, carbon dioxide 26, BUN 9, creatinine 1.04 and random glucose of 151. Troponin was less than 0.0152. LFTs were within normal limits. Lactate 3.6. Coags were within normal limits. ABG 7.43/40/130s/26/98.8% on 4.5 L/m nasal cannula. Blood culture and urine culture pending. Chest x-ray done showed chronic pleural and parenchymal changes bilaterally. Greater on the left than on the right. Moderate stable cardiomegaly present. In the ER, she was given 1 L normal saline bolus 2, Zosyn 4.5 g, vancomycin 2 g. She was admitted for metabolic encephalopathy and possible sepsis with unknown etiology. A bilateral lower extremity Doppler was done over the course of the night and showed bilateral deep venous thrombosis. She was subsequently started on heparin. She tolerated CPAP overnight. At the time of my evaluation this morning, patient resting comfortably in bed and in no acute distress. She denies any any shortness of breath or chest pain. Historian: patient, other (EMR) Onset: last week Complaint Status: worsened, persistent Quality of Pain: dull Review of Systems Constitutional: reports: as stated in HPI Eyes: reports: as stated in HPI ENT: reports: as stated in HPI Cardiovascular: reports: as stated in HPI Respiratory: reports: as stated in HPI Gastrointestinal: reports: as stated in HPI Genitourinary - Female: reports: as stated in HPI Musculoskeletal: reports: as stated in HPI Integumentary: reports: as stated in HPI Neurologic: reports: as stated in HPI Psychiatric: reports: as stated in HPI Endocrine: as stated in HPI Hematologic / Lymphatic: as stated in HPI Allergic / Immunologic: as stated in HPI All Other Symptoms All Other Systems: Reviewed and Negative Past Medical History Past Medical History: A Past Medical History: anxiety, asthma, depression, hypothyroidism, osteoarthritis, urinary tract infection, other Past Surgical History: adenoidectomy, appendectomy, hysterectomy, orthopedic surgery, spinal surgery, thyroidectomy, TKR, tonsillectomy Family History Diabetes mellitus FH: cancer FH: gallbladder disease FH: heart disease FH: lung disease Hypertension Kidney disease or stones Social History Hx Tobacco Use In Past Year?: No Smoking Status: Unknown if Ever Smoked Alcohol: no current use Drug Use: none Marital status: Housing status: lives with family Occupational Status: retired Immunizations History of Influenza Vaccine: N/A Influenza Vaccine Date: Jun 18, 2012 History of Tetanus Vaccine?: Yes Tetanus Immunization Date: Mar 18, 2004 History of Pneumococcal: Yes Pneumococcal Date: May 31, 2010 History of Hepatitis B Vaccine: No History of MDRO History of MDRO: Yes Type of MDRO: MRSA Allergies Coded Allergies: Pneumococcal Vaccine (Verified Allergy, Severe, SHORTNESS OF BREATH, ) Erythromycin (Verified Allergy, Mild, RASH, 08/25/17) Adhesives (Verified Allergy, Unknown, TAPE-REDNESS, BLISTERS, 08/25/17) Metronidazole (Verified Allergy, Unknown, skin rash, 08/25/17) allergic to generic form Phenazopyridine (Verified Allergy, Unknown, abdominal pain/rash, 08/25/17) Polymyxin B (Verified Allergy, Unknown, 08/25/17) Salicylates (Verified Allergy, Unknown, pt states rash with ASA 325 but not ASA 81mg, 08/25/17) Tetracycline (Verified Allergy, Unknown, RASH, 08/25/17) Morphine (Verified Adverse Reaction, Intermediate, urinary retention - oral morphine only, 08/25/17) Diltiazem (Verified Adverse Reaction, Mild, FLUID RETENTION, 08/25/17) Metoclopramide (Verified Adverse Reaction, Mild, TREMORS, 08/25/17) Bacitracin (Verified Adverse Reaction, Unknown, "MAKES IT WORSE"-OK IF NOT OTC MEDICATION, 08/25/17) OKAY IF NOT OVER THE COUNTER MEDICATION Current Medications Reported Home Medications Medications Dose Route/Sig Max Daily Dose Days Date Category Dose Instructions Vitamin D3 (Cholecalciferol) 2,000 Unit Cap 2,000 Units PO BID 90 09/19/17 Reported Prednisone 2.5 Mg Tab 2.5 Mg PO DAILY 09/19/17 Reported CURRENT DOSE: 32.5MG only adjusted by catering attendant..dr. anne Hycodan 5/1.5MG 5 Ml (Hydrocodone W/ Homatropine) 1 Syp Syp 5 Ml PO Q4H PRN 09/19/17 Reported Neurontin (Gabapentin) 300 Mg Cap 300 Mg PO BID 09/19/17 Reported Citalopram Hydrobromide 20 Mg Tab 30 Mg PO DAILY 09/19/17 Reported Prednisone 10 Mg Tab 30 Mg PO DAILY 08/25/17 Reported CURRENT DOSE: 32.5MG only adjusted by catering attendant..dr. omid Castillous Solostar (Insulin Glargine) 100 Unit/Ml Inj 20 Units SC QAM 30 07/27/17 Rx Fioricet (Acetaminophen/Butalbital/Caffeine) 1 Ea Tab 1 Tab PO Q4H PRN 30 07/27/17 Rx Levothyroxine Sodium 100 Mcg Tab 100 Mcg PO QAM 30 07/27/17 Rx Potassium Chloride Er (Potassium Chloride) 10 Meq Cap 20 Meq PO BID 30 07/27/17 Rx Iron (Ferrous Sulfate) 325 Mg Tab 325 Mg PO QAM 30 07/27/17 Rx Midodrine Hcl 2.5 Mg Tab 1 Tab PO TID PRN 30 07/27/17 Rx Spiriva Respimat (Tiotropium [place]) 1.25 Mcg/Act Aer 2 Puff INH DAILY 07/07/17 Reported Nystop (Nystatin (Topical)) 100,000 Unit/Gm Pow 1 Appln TOP TID 07/07/17 Reported Novolog Flexpen (Insulin Aspart) 100 Units/Ml Inj SQ QPM 07/07/17 Reported SLIDING SCALE Voltaren 1% Top Gel (Diclofenac Sodium (Topical)) 1 % Gel 1 Appln TOP PRN UD 07/07/17 Reported Dexilant (Dexlansoprazole) 60 Mg Cap 60 Mg PO QAM 07/07/17 Reported Calcitriol 0.25 Mcg Cap 0.25 Mcg PO DAILY 07/07/17 Reported TAKE WITH CALCIUM Combivent Respimat (Ipratropium-Albuterol) 1 Aer Aer 1 Puffs INH QID 05/01/17 Reported Linzess (Linaclotide) 145 Mcg Cap 145 Mcg PO DAILY PRN 05/01/17 Reported Ativan (Lorazepam) 0.5 Mg Tab 0.5 Mg PO HS PRN 04/13/17 Reported Melatonin 10 Mg Tab 10 Mg PO HS 04/13/17 Reported Ultram (Tramadol HCl) 50 Mg Tab 50 Mg PO QID 02/09/17 Reported Spironolactone 25 Mg Tab 25 Mg PO BID 30 01/28/17 Rx Duoneb (Ipratropium-Albuterol) 3 Ml Nebu 1 Treatment INH Q4H PRN 10/20/16 Reported Requip (Ropinirole HCl) 0.25 Mg Tab 0.25-0.5 Mg PO HS 04/24/16 Reported Calcium Carbonate 1,250 Mg Tab 1,250 Mg PO HS 02/26/16 Reported Vitamin B-12 (Cyanocobalamin) 500 Mcg Tab 1,000 Mcg PO QAM 12/20/15 Reported Zocor (Simvastatin) 20 Mg Tab 20 Mg PO HS 12/20/15 Reported Riboflavin 400 Mg Tab 400 Mg PO QAM 12/01/15 Reported Physical Physical Exam Vital Signs: Date Time Temp Pulse Resp B/P (MAP) Pulse Ox O2 Delivery O2 Flow Rate FiO2 09/20/17 06:09 91 20 156/94 (114) 95 Nasal Cannula 3.0 09/20/17 04:00 Nasal Cannula 4.0 09/20/17 01:22 79 99 3.0 09/19/17 23:59 Nasal Cannula 4.0 09/19/17 23:04 36.4 77 16 151/83 99 Nasal Cannula 4.0 09/19/17 22:29 36.9 84 18 167/91 96 Room Air 4.0 09/19/17 20:58 85 20 157/60 95 4.0 09/19/17 20:22 85 09/19/17 19:30 93 20 157/92 96 Nasal Cannula 4.0 09/19/17 17:45 90 20 181/99 97 Nasal Cannula 4.0 09/19/17 16:56 88 18 148/82 96 Nasal Cannula 4.0 09/19/17 16:11 97 Nasal Cannula 4.0 09/19/17 16:09 90 09/19/17 15:35 36.8 90 20 135/86 97 Nasal Cannula 4.0 General Appearance: NO APPARENT DISTRESS, obese Head: NORMOCEPHALIC, ATRAUMATIC Eyes: NO DISCHARGE, EOMI, SCLERAE NORMAL, CONJUNCTIVAE NORMAL ENT: NORMAL MOUTH EXAM, NORMAL THROAT EXAM Neck: NO TENDERNESS, TRACHEA MIDLINE, NO STRIDOR, SUPPLE, other (short thick neck) Respiratory: NO RESPIRATORY DISTRESS, other (crackles at bases bilaterally, no wheezes) Cardiovasular: REGULAR RATE/RHYTHM, NORMAL S1S2, NO M/G/R Abdomen: NON TENDER, NORMAL BOWEL SOUNDS, NO REBOUND, other (obese) Back: NORMAL INSPECTION, NO MIDLINE TENDERNESS, NO CVA TENDERNESS Upper Extremities: NO EDEMA, NO DEFORMITY, NORMAL ROM Lower Extremities: NO EDEMA (trace edema), NO DEFORMITY, NORMAL ROM, other Pulses: dorsalis pedis (R) (2+), dorsalis pedis (L) (2+) Neuro: ALERT, ORIENTED x 3, NORMAL MOTOR EXAM, NORMAL SPEECH, NORMAL MEMORY Psychiatric: NO SUICIDAL IDEATION, CONTRACTS FOR SAFETY, flat affect Diagnostics Labs Results Past 24 Hours Test 09/19/17 16:26 09/19/17 17:55 09/19/17 21:45 09/19/17 23:10 Range/Units White Blood Count 11.05 4.8-10.8 K/uL Red Blood Count 3.96 4.2-5.4 M/uL Hemoglobin 12.3 12.0-16.0 g/dL Hematocrit 38.3 37-47 % Mean Corpuscular Volume 96.7 80-100 fL Mean Corpuscular Hemoglobin 31.1 25-34 pg Mean Corpuscular Hemoglobin Concent 32.1 32-36 g/dl Platelet Count 178 130-400 K/uL Mean Platelet Volume 10.3 7.4-10.4 fL Neutrophils (%) (Auto) 84.1 % Lymphocytes (%) (Auto) 7.9 % Monocytes (%) (Auto) 4.5 % Eosinophils (%) (Auto) 0.2 % Basophils (%) (Auto) 0.2 % Neutrophils # (Auto) 9.30 1.4-6.5 K/uL Lymphocytes # (Auto) 0.87 1.2-3.4 K/uL Monocytes # (Auto) 0.50 0.11-0.59 K/uL Eosinophils # (Auto) 0.02 0-0.5 K/uL Basophils # (Auto) 0.02 0-0.2 K/uL RDW Standard Deviation 56.7 36.4-46.3 fL RDW Coefficient of Variation 16.0 11.5-14.5 % Immature Granulocyte % (Auto) 3.1 % Immature Granulocyte # (Auto) 0.34 0.00-0.02 K/uL Prothrombin Time 9.6 9.0-12.0 SECONDS Prothromb Time International Ratio 0.9 0.9-1.1 Activated Partial Thromboplast Time 22.4 21.0-31.0 SECONDS Partial Thromboplastin Ratio 0.9 Sodium Level 136 136-145 mmol/L Potassium Level 4.4 3.5-5.1 mmol/L Chloride Level 101 98-107 mmol/L Carbon Dioxide Level 26 21-32 mmol/L Anion Gap 9.0 3-11 mmol/L Blood Urea Nitrogen 19 7-18 mg/dl Creatinine 1.04 0.60-1.20 mg/dl Est Creatinine Clear Calc Drug Dose 47.3 ml/min Estimated GFR () 58.8 Estimated GFR (Non- 50.7 BUN/Creatinine Ratio 18.5 10-20 Random Glucose 151 70-99 mg/dl Lactic Acid Level 3.6 0.4-2.0 mmol/L Calcium Level 8.3 8.5-10.1 mg/dl Magnesium Level 2.0 1.8-2.4 mg/dl Total Bilirubin 0.6 0.2-1 mg/dl Aspartate Amino Transf (AST/SGOT) 14 15-37 U/L Alanine Aminotransferase (ALT/SGPT) 32 12-78 U/L Alkaline Phosphatase 60 45-117 U/L Total Creatine Kinase 40 26-192 U/L Creatine Kinase MB 1.7 0.5-3.6 ng/ml Creatine Kinase MB Ratio 4.3 0-3.0 Troponin I < 0.015 < 0.015 0-0.045 ng/ml Total Protein 6.4 6.4-8.2 gm/dl Albumin 3.2 3.4-5.0 gm/dl Globulin 3.2 2.5-4.0 gm/dl Albumin/Globulin Ratio 1.0 0.9-2 Thyroid Stimulating Hormone (TSH) 2.240 0.300-4.500 uIu/ml Urine Color DK YELLOW Urine Appearance CLEAR CLEAR Urine pH 5.0 4.5-7.5 Urine Specific [place] 1.018 1.000-1.030 Urine Protein NEG NEG Urine Glucose (UA) NEG NEG Urine Ketones NEG NEG Urine Occult Blood TRACE NEG Urine Nitrite NEG NEG Urine Bilirubin NEG NEG Urine Urobilinogen NEG NEG Urine Leukocyte Esterase NEG NEG Urine WBC (Auto) 0 0-5 /hpf Urine RBC (Auto) 0-4 0-4 /hpf Urine Hyaline Casts (Auto) 1-5 0-5 /lpf Urine Epithelial Cells (Auto) 10-20 0-5 /lpf Urine Bacteria (Auto) NEG NEG Lipase 106 73-393 U/L Arterial Blood pH 7.43 7.35-7.45 Arterial Blood Partial Pressure CO2 40 35-46 mmHg Arterial Blood Partial Pressure O2 130 80-95 mm/Hg Arterial Blood HCO3 26 19-24 mmol/L Arterial Blood Oxygen Saturation 98.8 90-95 % Arterial Blood Base Excess 1.5 -9-1.8 mEq/L Arterial Blood Gas Delivery 4.5 John Test POS POS Test 09/20/17 04:59 Range/Units White Blood Count 8.36 4.8-10.8 K/uL Red Blood Count 3.70 4.2-5.4 M/uL Hemoglobin 11.7 12.0-16.0 g/dL Hematocrit 35.5 37-47 % Mean Corpuscular Volume 95.9 80-100 fL Mean Corpuscular Hemoglobin 31.6 25-34 pg Mean Corpuscular Hemoglobin Concent 33.0 32-36 g/dl Platelet Count 165 130-400 K/uL Mean Platelet Volume 10.3 7.4-10.4 fL Neutrophils (%) (Auto) 71.5 % Lymphocytes (%) (Auto) 15.6 % Monocytes (%) (Auto) 8.3 % Eosinophils (%) (Auto) 0.2 % Basophils (%) (Auto) 0.2 % Neutrophils # (Auto) 5.98 1.4-6.5 K/uL Lymphocytes # (Auto) 1.30 1.2-3.4 K/uL Monocytes # (Auto) 0.69 0.11-0.59 K/uL Eosinophils # (Auto) 0.02 0-0.5 K/uL Basophils # (Auto) 0.02 0-0.2 K/uL RDW Standard Deviation 56.2 36.4-46.3 fL RDW Coefficient of Variation 16.2 11.5-14.5 % Immature Granulocyte % (Auto) 4.2 % Immature Granulocyte # (Auto) 0.35 0.00-0.02 K/uL Prothrombin Time 10.0 9.0-12.0 SECONDS Prothromb Time International Ratio 1.0 0.9-1.1 Activated Partial Thromboplast Time 23.1 21.0-31.0 SECONDS Partial Thromboplastin Ratio 0.9 Sodium Level 138 136-145 mmol/L Potassium Level 3.7 3.5-5.1 mmol/L Chloride Level 105 98-107 mmol/L Carbon Dioxide Level 28 21-32 mmol/L Anion Gap 5.0 3-11 mmol/L Blood Urea Nitrogen 13 7-18 mg/dl Creatinine 0.82 0.60-1.20 mg/dl Est Creatinine Clear Calc Drug Dose 60.3 ml/min Estimated GFR () 78.3 Estimated GFR (Non- 67.6 BUN/Creatinine Ratio 16.4 10-20 Random Glucose 82 70-99 mg/dl Estimated Average Glucose 148 mg/dl Hemoglobin A1c 6.8 4.5-5.6 % Lactic Acid Level 1.0 0.4-2.0 mmol/L Calcium Level 7.8 8.5-10.1 mg/dl Phosphorus Level 2.8 2.5-4.9 mg/dl Magnesium Level 2.0 1.8-2.4 mg/dl Total Bilirubin 0.7 0.2-1 mg/dl Aspartate Amino Transf (AST/SGOT) 14 15-37 U/L Alanine Aminotransferase (ALT/SGPT) 30 12-78 U/L Alkaline Phosphatase 56 45-117 U/L Total Protein 5.9 6.4-8.2 gm/dl Albumin 2.9 3.4-5.0 gm/dl Globulin 3.0 2.5-4.0 gm/dl Albumin/Globulin Ratio 1.0 0.9-2 Microbiology Results 09/19/17 Blood Culture, Received Pending 09/19/17 Blood Culture, Received Pending 09/20/17 MRSA DNA Surveillance Screen - Final, Complete Specimen Positive for MRSA by DNA Probe 09/19/17 Urine Culture, Received Pending Diagnostic Radiology ULTRASOUND BILATERAL LOWER EXTREMITY VENOUS CLINICAL HISTORY: Dyspnea. COMPARISON STUDY: Bilateral lower extremity venous ultrasound dated 01/14/2017. TECHNIQUE: Real-time, grayscale, and color Doppler sonography of the deep veins of the right and left lower extremity was performed from the inguinal crease to the calf. Compression and augmentation were utilized. FINDINGS: Right lower extremity: There is nearly occlusive deep venous thrombosis identified within the proximal popliteal vein and within one of the 2 duplicated distal popliteal veins. Deep venous thrombosis is also seen within the right calf within one of the posterior tibial veins. The remaining calf vessels are clear. The common femoral and superficial femoral veins are patent and normally compressible. The greater saphenous vein and the profunda femoris vein at the junction with the common femoral vein are clear. Left lower extremity: Nonocclusive deep venous thrombosis is seen within the proximal superficial femoral vein. Deep venous thrombosis is also seen in the calf within one of the peroneal veins. The common femoral, mid to distal portions of the superficial femoral, and popliteal veins are patent and normally compressible. The greater saphenous vein and the profunda femoris vein at the junction with the common femoral vein are clear. IMPRESSION: Bilateral deep venous thrombosis as above. CHEST ONE VIEW PORTABLE CLINICAL HISTORY: weakness mental status change COMPARISON STUDY: 08/25/2017 FINDINGS: Mild stable cardiomegaly. Chronic pleural and parenchymal change left and to lesser extent right base. Lungs otherwise appear clear. Prior operative changes to both shoulders as well as cervical spine. IMPRESSION: Chronic change. Moderate stable cardiomegaly. No acute process. HEAD WITHOUT CONTRAST (CT) CT DOSE: 1425.10 mGy.cm HISTORY: Mental status change confusion TECHNIQUE: Multiaxial CT images of the head were performed without the use of intravenous contrast. A dose lowering technique was utilized adhering to the principles of ALARA. Comparison: 07/07/2017 Findings: The paranasal sinuses and mastoid air cells are clear. The calvarium and skull base are intact. The ventricles and sulci are within normal limits. There is no mass, hematoma, midline shift, or acute infarct. 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 Impression: No acute intracranial abnormality. Chronic and small vessel change. Mild atrophy. Impression Assessment and Plan Respiratory insufficiency Oxygen dependence Bilateral DVT History of Asthma on chronic steroids Diaphragmatic weakness Obesity hypoventilation syndrome Deconditioning Mrs. Philip presents with acute on chronic respiratory insufficiency with increased oxygen requirements and altered mental status. Bilateral U/S of lower extremities show bilateral DVT. Patient likely has pulmonary emboli, with history of worsening dyspnea at rest and pleuritic chest pain in this setting. She has limited mobility at baseline and is at high risk. Patient also had a bedside pulmonary function tests which show severe restriction. This can be secondary to chronic steroid use and diaphragmatic weakness as well as obesity. There also may be a component of decreased effort present. Recommendations Continue with oxygen and titrate to an SaO2 between 88-92%. Taper oxygen as tolerated. Continue with CPAP at night. Send procalcitonin, but I do not feel that dyspnea is secondary to bacterial lung infection. Increased lactate may be secondary to increased work of breathing or sepsis from another source. I do agree with CT chest to rule out PE and evaluate lung parenchyma. Recommend incentive spirometry prn and adequate pain control. Continue with home dose of steroids. Consider OT/PT Continue with full dose anticoagulation. This is likely a provoked DVT from sedentary lifestyle, however a full coagablity profile can be performed at some point. She may require lifelong therapy. I appreciate the consult. Please contact me if you have any other questions or concerns.
--- NOTE | 2017-09-20 11:45 | Pharmacy Progress Note ---
Glycemic Control Intl Consult Date of Service Sep 20, 2017. Scope Glycemic Pharmacist consulted by Dr Richards on 09/19/17 for glycemic control and to write orders per [facility] inpatient glycemic control protocol Objective Weight (Kilograms): 94.600 Accuchecks BSG (last 24hrs): Test 09/19/17 16:26 09/20/17 04:59 Random Glucose 151 mg/dl (70-99) 82 mg/dl (70-99) Laboratory Data (last 24hrs) Test 09/19/17 16:26 09/20/17 04:59 Anion Gap 9.0 mmol/L 5.0 mmol/L BUN/Creatinine Ratio 18.5 16.4 Blood Urea Nitrogen 19 mg/dl 13 mg/dl Creatinine 1.04 mg/dl 0.82 mg/dl Potassium Level 4.4 mmol/L 3.7 mmol/L Sodium Level 136 mmol/L 138 mmol/L White Blood Count 11.05 K/uL 8.36 K/uL Red Blood Count 3.96 M/uL 3.70 M/uL Hemoglobin 12.3 g/dL 11.7 g/dL Hematocrit 38.3 % 35.5 % Mean Corpuscular Volume 96.7 fL 95.9 fL Mean Corpuscular Hemoglobin 31.1 pg 31.6 pg Mean Corpuscular Hemoglobin Concent 32.1 g/dl 33.0 g/dl Platelet Count 178 K/uL 165 K/uL Mean Platelet Volume 10.3 fL 10.3 fL Neutrophils (%) (Auto) 84.1 % 71.5 % Lymphocytes (%) (Auto) 7.9 % 15.6 % Monocytes (%) (Auto) 4.5 % 8.3 % Eosinophils (%) (Auto) 0.2 % 0.2 % Basophils (%) (Auto) 0.2 % 0.2 % Neutrophils # (Auto) 9.30 K/uL 5.98 K/uL Lymphocytes # (Auto) 0.87 K/uL 1.30 K/uL Monocytes # (Auto) 0.50 K/uL 0.69 K/uL Eosinophils # (Auto) 0.02 K/uL 0.02 K/uL Basophils # (Auto) 0.02 K/uL 0.02 K/uL Hemoglobin A1c 6.8 % HbA1c Test 09/20/17 04:59 Hemoglobin A1c 6.8 % (4.5-5.6) H Recent Pertinent Medications Outpatient Anti-diabetic Regimen: * Lantus 20 units qAM * Novolog qPM * A1c = 6.8 % on 09/20/17 The patient is currently receiving: * Basal insulin: Lantus 20 units every 24 hours - home dose received 1/2 prior to arrival * Correctional Insulin: Novolog Correction per scale ACHS Goal Range: Low 140 mg/dL - High 180 mg/dL Correction Factor: 30 mg/dL/unit * Prandial insulin: Per carb ratio of 1 unit per 10 grams CHO consumed Risk Factors for Insulin Resistance: * Steroids: Prednisone 32.5 mg po daily (home dose) * Infection: on empiric levofloxacin, vancomycin * IVF: heparin drip * Diet: T2DM Assessment & Plan ASSESSMENT: * 82 yo F admitted with metabolic encephalopathy * Home regimen of insulin may be heavily weighted towards basal (unsure of Novolog dose but only receives once daily qPM per med rec). This is atypical for a patient also on moderate dose outpatient steroids as steroids cause more significant post-prandial BSG elevations which are better managed by bolus insulin (Novolog) as compared to basal insulin * Patient notes swallowing difficulty - unknown what po intake will be * Per RN, no intake at breakfast and only 20 g CHO intake at lunch today * Lantus * BSG also below goal range this AM (82 mg/dL) and outpatient regimen may be too basal heavy (see above) - will reduce outpatient Lantus dose by 25% * Novolog * Will start with slightly looser than weight-based stress of 2 due to uncertain oral intake and BSG below goal range this AM PLAN FOR INPATIENT GLYCEMIC CONTROL: * Basal insulin with LANTUS 15 units SQ x1 then qAM based on BSG * 10 units BSG < 100 mg/dL * 15 units BSG 100-140 mg/dL * 20 units BSG 140-180 mg/dL * 25 units BSG greater than 180 mg/dL * Correctional Insulin with NOVOLOG per scale ACHS or Q6hrs while NPO * Goal Range: Low 140 mg/dL - High 180 mg/dL * Correction Factor: 30 mg/dL/unit * Nutritional / Prandial insulin per carb ratio of 1 unit per 9 grams CHO consumed * Please note that the plan above was derived based on current level of insulin resistance and hospital stress. These recommendations are appropriate for inpatient admission only. Plan of care upon discharge will need to be reassessed to avoid potential outpatient hypo/hyperglycemia. Thank you.
[2017-09-20] MEDS ORDERED: VANCOMYCIN INJ 1,500 MG in SODIUM CHLORIDE 0.9% 500ML 500 ML IV SCH (12:00)
--- NOTE | 2017-09-20 16:48 | DIAGNOSTIC IMAGING REPORT ---
ABDOMEN COMPLETE (US) CLINICAL HISTORY: 82 years-old Female presenting with abd pain. TECHNIQUE: Real-time grayscale and limited color Doppler ultrasound imaging of the abdomen was performed. COMPARISON: 01/25/[address] from 07/07/2017. FINDINGS: Examination limited by body habitus and poor sonographic windows. Pancreas: Visualized portions of the pancreatic head and body normal. Pancreatic duct top normal in size. Liver: Markedly hyperechogenic parenchyma with obscuration of the right hemidiaphragm, likely indicating marked hepatic steatosis. The liver measures 24.2 cm in maximal sagittal dimension. Limited evaluation for hepatic mass given attenuation. Main portal vein patent with normal directional flow. Biliary: No intrahepatic biliary ductal dilatation. Common bile duct measures up to 3 mm in diameter. Gallbladder: Decompressed. Sonographic Newberry's sign negative. Spleen: Normal in echogenicity and size, measuring 8.8 cm in length. Kidneys: Cortical thinning suggested bilaterally. Prominent lobulations in the left kidney. Right kidney measures 10.4 cm, and left kidney measures 9.3 cm. No hydronephrosis. Bladder: Decompressed with a Mahoney catheter. Vasculature: Visualized portions of the IVC and abdominal aorta normal. Ascites: None. IMPRESSION: 1. Severe hepatic steatosis. Correlate with liver function tests to exclude steatohepatitis as a cause for abdominal pain. 2. Renal cortical thinning could suggest medical renal disease. No hydronephrosis. Electronically signed by: Jorge Villafana M.D. 09/20/2017 4:47 PM Dictated Date/Time: 09/20/2017 4:43 PM
[2017-09-20] MEDS: BOOST GLUCOSE CONTROL PO SCH (20:36)
[2017-09-20] MEDS: ROPINIROLE HCL 0.25 MG TAB PO SCH (21:26)
[2017-09-20] MEDS: SIMVASTATIN 20 MG TAB PO SCH (21:26)
[2017-09-21] VITALS (12 sets, daily range): BP systolic 100–168; BP diastolic 50–84; PULSE 78–99; TEMP 36.4–37.5; O2SAT 94–100
[2017-09-21] MEDS: SODIUM CHLORIDE 0.9% 1000ML 1,000 ML IV SCH ×2 (01:09→12:10)
[2017-09-21] MEDS: HEPARIN 25,000 UNIT/500ML D5W 500 ML IV PRN ×2 (02:45→15:44)
[2017-09-21] MEDS: LEVOTHYROXINE 100 MCG TAB PO SCH (06:21)
[2017-09-21 06:29] LABS: HEMATOCRIT 36.4 % (37-47); HEMOGLOBIN 11.7 g/dL (12.0-16.0); MEAN CELL VOLUME 97.8 fL (80-100); MEAN CORPUSCULAR HEMOGLOBIN 31.5 pg (25-34); MEAN CORPUSCULAR HGB CONC 32.1 g/dl (32-36); MEAN PLATELET VOLUME 11.1 fL (7.4-10.4); NUCLEATED RED BLOOD CELL ABS 0.03 K/uL (0-0); PLATELET COUNT 147 K/uL (130-400); RED CELL DISTRIBUTION WIDTH CV 16.3 % (11.5-14.5); RED CELL DISTRIBUTION WIDTH SD 57.8 fL (36.4-46.3); WHITE BLOOD COUNT 7.52 K/uL (4.8-10.8)
[2017-09-21 06:44] LABS: INR 0.9 (0.9-1.1)
[2017-09-21 06:53] LABS: PTT PATIENT 46.1 SECONDS (21.0-31.0)
[2017-09-21 06:55] LABS: BASO % 0.3 %; BASO ABS # 0.02 K/uL (0-0.2); EOS % 0.4 %; EOS ABS # 0.03 K/uL (0-0.5); IG# 0.43 K/uL (0.00-0.02); MONO % 8.8 %; MONO ABS # 0.66 K/uL (0.11-0.59); NEUT % 68.8 %; NEUT ABS # 5.18 K/uL (1.4-6.5)
[2017-09-21 07:05] LABS: CALCIUM 7.9 mg/dl (8.5-10.1); CREATININE 0.92 mg/dl (0.60-1.20)
[2017-09-21] MEDS: ALBUT/IPRATROP 3MG/0.5MG NEB 3 ML VIAL INH SCH ×4 (07:11→20:51)
[2017-09-21] MEDS ORDERED: HEPARIN IV BOLUS 3,000 UNIT in SYRINGE 0 ML IV ONE (08:15)
[2017-09-21] MEDS: CITALOPRAM 20 MG TAB PO SCH (09:15)
[2017-09-21] MEDS: GABAPENTIN 300 MG CAP PO SCH ×2 (09:15→21:36)
[2017-09-21] MEDS: TRAMADOL HCL 50 MG TAB PO SCH ×4 (09:15→21:00)
[2017-09-21] MEDS: SPIRONOLACTONE 25 MG TAB PO SCH ×2 (09:16→21:37)
[2017-09-21] MEDS: LACTOBACILLUS ACIDOPHILUS 1 GM PACK PO SCH ×3 (09:16→18:53)
[2017-09-21] MEDS: NYSTATIN POWDER 15GM BTL EXT SCH ×3 (09:17→21:00)
[2017-09-21] MEDS: CALCITRIOL 0.25 MCG CAP PO SCH (09:17)
[2017-09-21] MEDS: BOOST GLUCOSE CONTROL PO SCH ×2 (09:18→21:00)
[2017-09-21] MEDS: INSULIN ASPART 100 UNITS/ML 3 ML PEN SC SCH ×4 (09:23→22:15)
[2017-09-21] MEDS: INSULIN GLARGINE SOLOSTAR 100 UNITS/ML 3 ML PEN SC SCH (09:23)
--- NOTE | 2017-09-21 09:47 | Family Medicine Progress Note ---
Progress Note Date of Service Sep 21, 2017. Subjective Pt evaluation today including: conversation w/ patient, physical exam, chart review, lab review Pain: reports chest and abdominal pain PO Intake: tolerating Voiding: christian catheter in place This AM pt reports feeling more oriented but still having sob worse with exertion, chest pain and abdominal pain Constitutional: No fever, No chills Respiratory: + shortness of breath Cardiovascular: + chest pain Abdomen: + pain, No nausea, No vomiting Medications Current Inpatient Medications Medications (Trade) Dose Ordered Sig/Natasha Route Start Time Stop Time Status Last Admin Dose Admin Ioversol (Optiray 320) 111 ml UD PRN IV 09/19/17 17:15 09/23/17 17:14 Calcitriol (Rocaltrol Cap) 0.25 mcg DAILY PO 09/20/17 09:00 10/20/17 08:59 09/21/17 09:17 0.25 MCG Citalopram Hydrobromide (celeXA TAB) 30 mg DAILY PO 09/20/17 09:00 10/20/17 08:59 09/21/17 09:15 30 MG Gabapentin (Neurontin Cap) 300 mg BID PO 09/20/17 09:00 10/20/17 08:59 09/21/17 09:15 300 MG Hydrocodone Bit/ Homatropine Methylb (Hycodan Syrup) 5 ml Q4H PRN PO 09/19/17 21:15 10/03/17 21:14 Levothyroxine Sodium (Synthroid Tab) 100 mcg DAILYBB PO 09/20/17 06:00 10/20/17 06:59 09/21/17 06:21 100 MCG Lorazepam (Ativan Tab) 0.5 mg HS PRN PO 09/19/17 21:15 10/19/17 21:14 Midodrine (Proamatine Tab) 2.5 mg TID PRN PO 09/19/17 21:15 10/19/17 21:14 Nystatin (Mycostatin Powder) 1 appln TID EXT 09/20/17 09:00 10/20/17 08:59 09/21/17 09:17 1 APPLN Prednisone (PredniSONE TAB) 2.5 mg DAILY PO 09/20/17 09:00 10/20/17 08:59 09/21/17 09:17 2.5 MG Prednisone (PredniSONE TAB) 30 mg DAILY PO 09/20/17 09:00 10/20/17 08:59 09/21/17 09:15 30 MG Ropinirole HCl (Requip Tab) 0.25 mg HS PO 09/20/17 21:00 10/20/17 20:59 09/20/17 21:26 0.25 MG Simvastatin (Zocor Tab) 20 mg HS PO 09/20/17 21:00 10/20/17 20:59 09/20/17 21:26 20 MG Spironolactone (Aldactone Tab) 25 mg BID PO 09/20/17 09:00 10/20/17 08:59 09/21/17 09:16 25 MG Tramadol HCl (Ultram Tab) 50 mg QID PO 09/20/17 09:00 10/20/17 08:59 09/21/17 09:15 50 MG Albuterol/ Ipratropium (Duoneb) 3 ml QIDR INH 09/20/17 08:00 10/20/17 07:59 09/21/17 07:11 3 ML Lactobacillus Acidophilus (Lactinex Granules Pack) 1 gm TIDM PO 09/20/17 07:15 10/20/17 07:59 09/21/17 09:16 1 GM Sodium Chloride 1,000 ml @ 50 mls/hr Q20H IV 09/19/17 21:11 10/19/17 21:10 09/21/17 01:09 50 MLS/HR Acetaminophen (Tylenol Tab) 650 mg Q4H PRN PO 09/19/17 21:15 10/19/17 21:14 09/20/17 14:47 650 MG Al Hydrox/Mg Hydrox/Simethicone (Maalox Max Susp) 15 ml Q4H PRN PO 09/19/17 21:15 10/19/17 21:14 Magnesium Hydroxide (Milk Of Magnesia Susp) 30 ml Q12H PRN PO 09/19/17 21:15 10/19/17 21:14 Zolpidem Tartrate (Ambien Tab) 5 mg HSZ PRN PO 09/19/17 21:15 10/19/17 21:14 Ondansetron HCl (Zofran Inj) 4 mg Q6H PRN IV 09/19/17 21:15 10/19/17 21:14 Polyethylene (Miralax Powder Packet) 17 gm DAILY PRN PO 09/19/17 21:15 10/19/17 21:14 Insulin Aspart (novoLOG ASPART) SLIDING SCALE If C... ACHS SC 09/20/17 06:45 10/20/17 06:59 09/21/17 09:23 2 UNITS Glucose (Glucose 40% Gel) 15-30 GRAMS 15 GRAMS... UD PRN PO 09/19/17 21:15 10/19/17 21:14 Glucose (Glucose Chew Tab) 4-8 Tablets 4 Tabl... UD PRN PO 09/19/17 21:15 10/19/17 21:14 Dextrose (Dextrose 50% 50ML Syringe) 25-50ML OF 50% DW IV FOR... UD PRN IV 09/19/17 21:15 10/19/17 21:14 Glucagon (Glucagon Inj) 1 mg UD PRN SQ 09/19/17 21:15 10/19/17 21:14 Miscellaneous Information (Consult Glycemic Management Pharmacy) 1 ea UD PRN N/A 09/19/17 21:55 10/19/17 21:54 Heparin Sodium/ Dextrose 500 ml @ 28 mls/hr [id number] PRN IV 09/20/17 05:00 10/20/17 04:59 09/21/17 02:45 25 MLS/HR Enteral Nutritional Formula (Boost Glucose Control) 1 can BID PO 09/20/17 21:00 10/20/17 20:59 09/21/17 09:18 1 CAN Insulin Glargine (Lantus Solostar Pen) QAM SC 09/21/17 09:00 10/21/17 08:59 09/21/17 09:23 10 UNITS Objective Vital Signs Date Time Temp Pulse Resp B/P (MAP) Pulse Ox O2 Delivery O2 Flow Rate FiO2 09/21/17 08:00 36.8 99 20 134/64 (87) 99 Nasal Cannula 3.0 09/21/17 07:11 86 18 94 Nasal Cannula 3.0 09/21/17 04:00 36.4 85 20 124/79 (94) 97 Nasal Cannula 3.0 09/21/17 04:00 Nasal Cannula 3.0 1/3/18 23:59 75 16 09/20/17 23:59 Nasal Cannula 3.0 09/20/17 23:13 85 98 3.0 09/20/17 20:56 88 18 97 Nasal Cannula 4.0 09/20/17 20:00 Nasal Cannula 4.0 09/20/17 19:13 36.6 87 23 135/66 (89) 99 Nasal Cannula 3.5 09/20/17 16:45 36.7 101 15 156/99 (118) 92 Nasal Cannula 4.0 09/20/17 16:00 Nasal Cannula 4.0 09/20/17 12:43 37.2 106 23 143/68 (93) 90 Nasal Cannula 4.0 09/20/17 12:00 Nasal Cannula 4.0 09/20/17 11:30 90 18 93 Nasal Cannula 4.0 09/20/17 10:01 109 24 160/88 (112) 94 Nasal Cannula 4.0 Physical Exam General Appearance: no apparent distress Eyes: normal inspection, sclerae normal Neck: supple Respiratory/Chest: lungs clear, + decreased breath sounds, + pertinent finding (R sided clavicular chest TTP ) Cardiovascular: regular rate, rhythm, no murmur Abdomen: normal bowel sounds, soft, + tenderness (RUQ) Extremities: no pedal edema, + calf tenderness (bilateral), + pertinent finding (L elbow region arm edema and TTP from indurated IV and R arm IV sites sore with mild edema) Neurologic/Psychiatric: alert, oriented x 3 Skin: warm/dry Laboratory Results 09/21/17 06:06 Red Blood Count 3.72, Mean Corpuscular Volume 97.8, Mean Corpuscular Hemoglobin 31.5, Mean Corpuscular Hemoglobin Concent 32.1, Mean Platelet Volume 11.1, Neutrophils (%) (Auto) 68.8, Lymphocytes (%) (Auto) 16.0, Monocytes (%) (Auto) 8.8, Eosinophils (%) (Auto) 0.4, Basophils (%) (Auto) 0.3, Neutrophils # (Auto) 5.18, Lymphocytes # (Auto) 1.20, Monocytes # (Auto) 0.66, Eosinophils # (Auto) 0.03, Basophils # (Auto) 0.02 09/21/17 06:06 Test 09/20/17 12:30 09/20/17 19:14 09/21/17 06:06 Urine Color DK YELLOW Urine Appearance CLEAR (CLEAR) Urine pH 5.0 (4.5-7.5) Urine Specific [place] 1.036 (1.000-1.030) Urine Protein NEG (NEG) Urine Glucose (UA) NEG (NEG) Urine Ketones NEG (NEG) Urine Occult Blood 2+ (NEG) Urine Nitrite NEG (NEG) Urine Bilirubin NEG (NEG) Urine Urobilinogen NEG (NEG) Urine Leukocyte Esterase NEG (NEG) Urine WBC (Auto) 1-5 /hpf (0-5) Urine RBC (Auto) 10-30 /hpf (0-4) Urine Hyaline Casts (Auto) 1-5 /lpf (0-5) Urine Epithelial Cells (Auto) 10-20 /lpf (0-5) Urine Bacteria (Auto) NEG (NEG) Bedside Glucose 171 mg/dl (70-90) White Blood Count 7.52 K/uL (4.8-10.8) Red Blood Count 3.72 M/uL (4.2-5.4) Hemoglobin 11.7 g/dL (12.0-16.0) Hematocrit 36.4 % (37-47) Mean Corpuscular Volume 97.8 fL (80-100) Mean Corpuscular Hemoglobin 31.5 pg (25-34) Mean Corpuscular Hemoglobin Concent 32.1 g/dl (32-36) Platelet Count 147 K/uL (130-400) Mean Platelet Volume 11.1 fL (7.4-10.4) Neutrophils (%) (Auto) 68.8 % Lymphocytes (%) (Auto) 16.0 % Monocytes (%) (Auto) 8.8 % Eosinophils (%) (Auto) 0.4 % Basophils (%) (Auto) 0.3 % Neutrophils # (Auto) 5.18 K/uL (1.4-6.5) Lymphocytes # (Auto) 1.20 K/uL (1.2-3.4) Monocytes # (Auto) 0.66 K/uL (0.11-0.59) Eosinophils # (Auto) 0.03 K/uL (0-0.5) Basophils # (Auto) 0.02 K/uL (0-0.2) RDW Standard Deviation 57.8 fL (36.4-46.3) RDW Coefficient of Variation 16.3 % (11.5-14.5) Immature Granulocyte % (Auto) 5.7 % Immature Granulocyte # (Auto) 0.43 K/uL (0.00-0.02) Nucleated RBC Absolute Count (auto) 0.03 K/uL (0-0) Nucleated Red Blood Cells % 0.4 % Prothrombin Time 9.8 SECONDS (9.0-12.0) Prothromb Time International Ratio 0.9 (0.9-1.1) Activated Partial Thromboplast Time 46.1 SECONDS (21.0-31.0) Partial Thromboplastin Ratio 1.8 Anion Gap 6.0 mmol/L (3-11) Est Creatinine Clear Calc Drug Dose 54.0 ml/min Estimated GFR () 68.2 Estimated GFR (Non- 58.8 BUN/Creatinine Ratio 13.3 (10-20) Calcium Level 7.9 mg/dl (8.5-10.1) Chemistry Specimen Hemolysis Assessment and Plan 84 years old female with COPD, chronic respiratory failure was on 2 L of oxygen at home. Possible neuromuscular dysfunction, obesity hypoventilation syndrome, possible sleep apnea, and chronic steroid dependence. Currently requiring 3L O2 with sob and chest pain likely from PE vs. PNA Acute and chronic respiratory failure from PE vs. PNA - Hx of obesity hypoventilation syndrome, Obstructive sleep apnea, Diaphragmatic paralysis/neuromuscular disorder, Steroid myopathy (Chronic steroid dependence) - On O2 3L NC - wean as tolerated - PE rule out with CT after 24 hrs pending improvement in IV site indurations - Levofloxacin dced - On chronic prednisone dosage - Continue duonebs Bilateral DVTs - provoked 1st episode 2/2 sedentary lifestyle - Venous doppler - bilateral DVTs - On heparin IV - discussed warfarin vs. NOAC - pt has no preference - Discuss with case management regarding insurance preference/coverage Metabolic encephalopathy with lactic acidemia - improved - Lactic acid improved to 1 from 3.6 - ABG wnl SIRS present on admission with no obvious cause of infection - afebrile no WBC - Received Vanc and Zosyn - UA neg - UCx NGTD - BCx pending DM - on chronic steroids - Lantus 20 U and SS Hypothyroidism - Continue levothyroxine Hyperlipidemia - Continue simvastatin Depression - citalopram 40mg Migraine - Fiorcet PRN at home Heparin for DVT prophylaxis -Dispo: pending clinical improvement Resident Involvement: Resident Care Provided Care Provided: Adult Hospital Medicine History Resident Physician Supervision Note: I was present with Dr. Betancourt during the history and exam. I discussed the case with the resident and agree with the findings and plan as documented in the note. Any exceptions or clarifications are listed here. Pt reports improving shortness of breath and fatigue while at rest. Decreasing pain of the b/l UE at IV infiltration sites. Reports no FERNANDEZ, vision changes, nausea, chest pain, paresthesias. General Appearance: no apparent distress, obese Respiratory: chest non-tender, lungs clear, no respiratory distress, decreased breath sounds Cardiovascular: normal peripheral pulses, regular rate, rhythm, no murmur Gastrointestinal: normal bowel sounds, non tender, soft, no organomegaly Extremities: other (+ve b/l calf TTP stable) Neurologic/Psychiatric: alert, normal mood/affect, oriented x 3 Assessment/Plan 84 y/o female h/o COPD on 2L at home presents w/ acute onset shortness of breath Acute on chronic respiratory failure with concern for underlying PE - will hold on imaging and continue treatment w/ AC based on improvement. Off abx x 1 day with continued improvement. 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
--- NOTE | 2017-09-21 13:41 | Pharmacy Progress Note ---
Glycemic Control Progress Note Date of Service Sep 21, 2017. Scope Glycemic Pharmacist consulted for glycemic control to write orders per formerly [facility] inpatient glycemic control protocol. Objective Accuchecks BSG (last 24hrs): Test 09/20/17 16:43 09/20/17 19:14 09/21/17 06:06 Bedside Glucose 228 mg/dl (70-90) 171 mg/dl (70-90) Random Glucose 92 mg/dl (70-99) HbA1c: Test 09/20/17 04:59 Hemoglobin A1c 6.8 % (4.5-5.6) H Recent Pertinent Medications The patient is currently receiving: * Basal insulin: Lantus SQ Q AM per the following scale: 10 units if < 100; 15 units 100-140; 20 units 140-180; 25 units if above 180 * Correctional Insulin: Novolog Correction per scale ACHS Goal Range: Low 140 mg/dL - High 180 mg/dL Correction Factor: 30 mg/dL/unit * Prandial insulin: Per carb ratio of 1 unit per 9 grams CHO consumed * Oral Agents: None currently Outpatient Anti-Diabetic Meds Lantus 20 units SQ Q AM Novolog SQ Q PM (also uses Prednisone 32.5mg PO daily) Assessment & Plan ASSESSMENT: 09/21/17 * Fasting BSG 95 this AM w/ 15 units of Lantus on board; she has already received 10 units of Lantus this AM per scale. Will adjust scale to allow for doses of 15 - 20 units Lantus daily per new scale * Post-prandial BSGs climbed throughout the day yesterday, likely due to the effects of AM prednisone administration and due to "negative insulin" when BSGs were lower than goal range lower limit earlier in the day. Will adjust CR to allow for slightly larger Novolog doses w/ meals. PLAN FOR INPATIENT GLYCEMIC CONTROL: * Changing Lantus SQ Q AM to: 15 units SQ if BSG less than 140; 20 units SQ if BSG 140 or greater * Changing correction factor to 25 mg/dl/unit * Changing carb ratio to 1 unit per 8 grams CHO consumed * Changing goal range to Low 120 mg/dL - High 160 mg/dL * Please note that the plan above was derived based on current level of insulin resistance and hospital stress. These recommendations are appropriate for inpatient admission only. Plan of care upon discharge will need to be reassessed to avoid potential outpatient hypo/hyperglycemia. Thank you.
[2017-09-21 14:33] LABS: PTT PATIENT 93.7 SECONDS (21.0-31.0)
[2017-09-21] MEDS ORDERED: ENOXAPARIN 1 MG/KG SQ SCH (18:00)
[2017-09-21] MEDS ORDERED: VANCOMYCIN TROUGH ONE (19:30)
[2017-09-21] MEDS: WARFARIN SOD 5 MG TAB PO SCH (20:23)
[2017-09-21] MEDS: ENOXAPARIN 100 MG/1ML SYR SQ SCH (20:24)
[2017-09-21] MEDS: SIMVASTATIN 20 MG TAB PO SCH (21:36)
[2017-09-21] MEDS: ROPINIROLE HCL 0.25 MG TAB PO SCH (21:37)
[2017-09-21 22:23] LABS: PTT PATIENT 27.3 SECONDS (21.0-31.0)
[2017-09-22] VITALS (11 sets, daily range): BP systolic 137–172; BP diastolic 68–82; PULSE 71–88; TEMP 36.4–37.1; O2SAT 94–98
[2017-09-22] MEDS: LEVOTHYROXINE 100 MCG TAB PO SCH (05:52)
[2017-09-22] MEDS: ENOXAPARIN 100 MG/1ML SYR SQ SCH ×2 (06:22→19:32)
[2017-09-22] MEDS: ALBUT/IPRATROP 3MG/0.5MG NEB 3 ML VIAL INH SCH ×4 (07:42→20:07)
[2017-09-22 07:44] LABS: HEMATOCRIT 34.8 % (37-47); HEMOGLOBIN 11.1 g/dL (12.0-16.0); MEAN CELL VOLUME 98.6 fL (80-100); MEAN CORPUSCULAR HEMOGLOBIN 31.4 pg (25-34); MEAN CORPUSCULAR HGB CONC 31.9 g/dl (32-36); MEAN PLATELET VOLUME 10.4 fL (7.4-10.4); NUCLEATED RED BLOOD CELL ABS 0.04 K/uL (0-0); PLATELET COUNT 163 K/uL (130-400); RED CELL DISTRIBUTION WIDTH CV 16.4 % (11.5-14.5); RED CELL DISTRIBUTION WIDTH SD 58.9 fL (36.4-46.3); WHITE BLOOD COUNT 6.66 K/uL (4.8-10.8)
[2017-09-22] MEDS: INSULIN ASPART 100 UNITS/ML 3 ML PEN SC SCH ×4 (08:00→21:29)
[2017-09-22 08:04] LABS: CALCIUM 8.1 mg/dl (8.5-10.1); CREATININE 0.81 mg/dl (0.60-1.20); POTASSIUM 3.5 mmol/L (3.5-5.1)
[2017-09-22] MEDS: BOOST GLUCOSE CONTROL PO SCH ×2 (08:41→21:39)
[2017-09-22] MEDS: LACTOBACILLUS ACIDOPHILUS 1 GM PACK PO SCH ×3 (08:42→18:23)
[2017-09-22] MEDS: TRAMADOL HCL 50 MG TAB PO SCH ×4 (08:42→21:22)
[2017-09-22] MEDS: CALCITRIOL 0.25 MCG CAP PO SCH (08:42)
[2017-09-22] MEDS: SPIRONOLACTONE 25 MG TAB PO SCH ×2 (08:44→21:25)
[2017-09-22] MEDS: GABAPENTIN 300 MG CAP PO SCH ×2 (08:44→21:23)
[2017-09-22] MEDS: NYSTATIN POWDER 15GM BTL EXT SCH ×3 (09:00→21:24)
[2017-09-22 09:13] LABS: CREATININE 0.79 mg/dl (0.60-1.20)
[2017-09-22] MEDS: INSULIN GLARGINE SOLOSTAR 100 UNITS/ML 3 ML PEN SC SCH (09:23)
--- NOTE | 2017-09-22 09:42 | Family Medicine Progress Note ---
Progress Note Date of Service Sep 22, 2017. Subjective Pt evaluation today including: conversation w/ patient, physical exam, chart review, lab review Pain: chest pain (pleuritic), abdominal pain and LE pain extremity PO Intake: tolerating Voiding: christian catheter in place This AM pt reports about the same chest pain, sob, abdominal pain and LE pain Constitutional: No fever, No chills Respiratory: + shortness of breath Cardiovascular: + chest pain Abdomen: + pain, No nausea, No vomiting Musculoskeletal: + calf pain Medications Current Inpatient Medications Medications (Trade) Dose Ordered Sig/Natasha Route Start Time Stop Time Status Last Admin Dose Admin Ioversol (Optiray 320) 111 ml UD PRN IV 09/19/17 17:15 09/23/17 17:14 Calcitriol (Rocaltrol Cap) 0.25 mcg DAILY PO 09/20/17 09:00 10/20/17 08:59 09/22/17 08:42 0.25 MCG Citalopram Hydrobromide (celeXA TAB) 30 mg DAILY PO 09/20/17 09:00 10/20/17 08:59 09/21/17 09:15 30 MG Gabapentin (Neurontin Cap) 300 mg BID PO 09/20/17 09:00 10/20/17 08:59 09/22/17 08:44 300 MG Hydrocodone Bit/ Homatropine Methylb (Hycodan Syrup) 5 ml Q4H PRN PO 09/19/17 21:15 10/03/17 21:14 Levothyroxine Sodium (Synthroid Tab) 100 mcg DAILYBB PO 09/20/17 06:00 10/20/17 06:59 09/22/17 05:52 100 MCG Lorazepam (Ativan Tab) 0.5 mg HS PRN PO 09/19/17 21:15 10/19/17 21:14 Midodrine (Proamatine Tab) 2.5 mg TID PRN PO 09/19/17 21:15 10/19/17 21:14 Nystatin (Mycostatin Powder) 1 appln TID EXT 09/20/17 09:00 10/20/17 08:59 09/21/17 21:00 1 APPLN Prednisone (PredniSONE TAB) 2.5 mg DAILY PO 09/20/17 09:00 10/20/17 08:59 09/22/17 08:43 2.5 MG Prednisone (PredniSONE TAB) 30 mg DAILY PO 09/20/17 09:00 10/20/17 08:59 09/22/17 08:43 30 MG Ropinirole HCl (Requip Tab) 0.25 mg HS PO 09/20/17 21:00 10/20/17 20:59 09/21/17 21:37 0.25 MG Simvastatin (Zocor Tab) 20 mg HS PO 09/20/17 21:00 10/20/17 20:59 09/21/17 21:36 20 MG Spironolactone (Aldactone Tab) 25 mg BID PO 09/20/17 09:00 10/20/17 08:59 09/22/17 08:44 25 MG Tramadol HCl (Ultram Tab) 50 mg QID PO 09/20/17 09:00 10/20/17 08:59 09/22/17 08:42 50 MG Albuterol/ Ipratropium (Duoneb) 3 ml QIDR INH 09/20/17 08:00 10/20/17 07:59 09/22/17 07:42 3 ML Lactobacillus Acidophilus (Lactinex Granules Pack) 1 gm TIDM PO 09/20/17 07:15 10/20/17 07:59 09/22/17 08:42 1 GM Acetaminophen (Tylenol Tab) 650 mg Q4H PRN PO 09/19/17 21:15 10/19/17 21:14 09/20/17 14:47 650 MG Al Hydrox/Mg Hydrox/Simethicone (Maalox Max Susp) 15 ml Q4H PRN PO 09/19/17 21:15 10/19/17 21:14 Magnesium Hydroxide (Milk Of Magnesia Susp) 30 ml Q12H PRN PO 09/19/17 21:15 10/19/17 21:14 Zolpidem Tartrate (Ambien Tab) 5 mg HSZ PRN PO 09/19/17 21:15 10/19/17 21:14 Ondansetron HCl (Zofran Inj) 4 mg Q6H PRN IV 09/19/17 21:15 10/19/17 21:14 Polyethylene (Miralax Powder Packet) 17 gm DAILY PRN PO 09/19/17 21:15 10/19/17 21:14 Insulin Aspart (novoLOG ASPART) SLIDING SCALE If C... ACHS SC 09/20/17 06:45 10/20/17 06:59 09/21/17 22:15 2 UNITS Glucose (Glucose 40% Gel) 15-30 GRAMS 15 GRAMS... UD PRN PO 09/19/17 21:15 10/19/17 21:14 Glucose (Glucose Chew Tab) 4-8 Tablets 4 Tabl... UD PRN PO 09/19/17 21:15 10/19/17 21:14 Dextrose (Dextrose 50% 50ML Syringe) 25-50ML OF 50% DW IV FOR... UD PRN IV 09/19/17 21:15 10/19/17 21:14 Glucagon (Glucagon Inj) 1 mg UD PRN SQ 09/19/17 21:15 10/19/17 21:14 Miscellaneous Information (Consult Glycemic Management Pharmacy) 1 ea UD PRN N/A 09/19/17 21:55 10/19/17 21:54 Enteral Nutritional Formula (Boost Glucose Control) 1 can BID PO 09/20/17 21:00 10/20/17 20:59 09/22/17 08:41 1 CAN Insulin Glargine (Lantus Solostar Pen) QAM SC 09/21/17 09:00 10/21/17 08:59 09/22/17 09:23 15 UNITS Warfarin Sodium (Coumadin Tab) 5 mg DAILY@16 PO 09/21/17 19:00 10/21/17 18:59 09/21/17 20:23 5 MG Enoxaparin Sodium (Lovenox Inj) 100 mg Q12H SQ 09/21/17 19:00 10/21/17 18:59 09/22/17 06:22 100 MG Objective Vital Signs Date Time Temp Pulse Resp B/P (MAP) Pulse Ox O2 Delivery O2 Flow Rate FiO2 09/22/17 08:00 98 Nasal Cannula 3.0 09/22/17 07:42 71 18 97 Nasal Cannula 3.0 09/22/17 07:40 36.6 74 16 172/81 (111) 98 Nasal Cannula 3.0 09/22/17 07:25 Nasal Cannula 3.0 09/22/17 06:22 71 167/81 (109) 09/22/17 01:57 167/82 (110) 09/22/17 00:15 CPAP 3.0 09/21/17 22:58 36.5 78 16 168/84 (112) 97 CPAP 3.0 09/21/17 22:50 81 96 3.0 09/21/17 20:54 78 18 98 Nasal Cannula 3.0 09/21/17 16:53 Nasal Cannula 3.0 09/21/17 15:11 36.8 89 18 134/74 (94) 94 Nasal Cannula 3.0 09/21/17 13:15 37.5 96 24 146/70 (95) 94 Nasal Cannula 2.0 09/21/17 12:02 133/80 (97) 09/21/17 11:49 36.8 92 20 96 3.0 09/21/17 11:38 36.8 92 20 100/50 (67) 100 Nebulizer 100 09/21/17 11:21 90 18 97 Nasal Cannula 3.0 Physical Exam General Appearance: no apparent distress Neck: supple Respiratory/Chest: lungs clear, + decreased breath sounds Cardiovascular: regular rate, rhythm Abdomen: normal bowel sounds, soft, + tenderness (LUQ region) Extremities: no pedal edema, + calf tenderness (bilateral) Neurologic/Psychiatric: alert Laboratory Results 09/22/17 07:19 09/22/17 07:19 Test 09/21/17 19:43 09/22/17 07:19 09/22/17 07:59 Vancomycin Level Trough 8.8 mcg/ml (SEE COMMENT) Red Blood Count 3.53 M/uL (4.2-5.4) Mean Corpuscular Volume 98.6 fL (80-100) Mean Corpuscular Hemoglobin 31.4 pg (25-34) Mean Corpuscular Hemoglobin Concent 31.9 g/dl (32-36) RDW Standard Deviation 58.9 fL (36.4-46.3) RDW Coefficient of Variation 16.4 % (11.5-14.5) Mean Platelet Volume 10.4 fL (7.4-10.4) Nucleated RBC Absolute Count (auto) 0.04 K/uL (0-0) Nucleated Red Blood Cells % 0.6 % Prothrombin Time 10.1 SECONDS (9.0-12.0) Prothromb Time International Ratio 1.0 (0.9-1.1) Activated Partial Thromboplast Time 28.0 SECONDS (21.0-31.0) Partial Thromboplastin Ratio 1.1 Anion Gap 6.0 mmol/L (3-11) Est Creatinine Clear Calc Drug Dose 61.4 ml/min Estimated GFR () 79.5 Estimated GFR (Non- 68.6 BUN/Creatinine Ratio 12.7 (10-20) Calcium Level 8.1 mg/dl (8.5-10.1) Bedside Glucose 94 mg/dl (70-90) Assessment and Plan 84 years old female with COPD, chronic respiratory failure was on 2 L of oxygen at home. Possible neuromuscular dysfunction, obesity hypoventilation syndrome, possible sleep apnea, and chronic steroid dependence. Currently requiring 3L O2 with sob and chest pain likely from PE vs. PNA Acute and chronic respiratory failure from PE vs. PNA - Hx of obesity hypoventilation syndrome, Obstructive sleep apnea, Diaphragmatic paralysis/neuromuscular disorder, Steroid myopathy (Chronic steroid dependence) - On O2 3L NC - wean as tolerated - Consider PE/PNA rule out with CT after 24 hrs pending improvement in IV site indurations if not improved - Levofloxacin dced - On chronic prednisone dosage - Continue duonebs Bilateral DVTs - provoked 1st episode 2/2 sedentary lifestyle - Venous doppler - bilateral DVTs - Started on Coumadin and lovenox (stop 24hrs after INR >+2) from heparin IV - discussed warfarin vs. NOAC - pt has no preference and asked to speak with daughter - Daughter preferred coumadin Metabolic encephalopathy with lactic acidemia - improved - Lactic acid improved to 1 from 3.6 - ABG wnl SIRS present on admission with no obvious cause of infection - afebrile no WBC - Received Vanc and Zosyn - UA neg - UCx NGTD - BCx NGTD DM - on chronic steroids - Lantus 20 U and SS Hypothyroidism - Continue levothyroxine Hyperlipidemia - Continue simvastatin Depression - citalopram 40mg Migraine - Fiorcet PRN at home Lovenox DVT prophylaxis -Dispo: pending clinical improvement Resident Involvement: Resident Care Provided Care Provided: Adult Hospital Medicine History Resident Physician Supervision Note: I was present with Dr. Betancourt during the history and exam. I discussed the case with the resident and agree with the findings and plan as documented in the note. Any exceptions or clarifications are listed here. Pt reports mildly improved shortness of breath from previous with stable chronic right sided pain which is unchanged from the last month. Reports no abdominal pain, distention, though has no recent bowel movement. Reports no n/ v. Discussed with patient extensively regarding need for PT evaluation and cooperation addressing her previous refusals. She is agreeable to work with them on next visit. Discussed case with pt's daughter, Grisel, and reviewed course of care as noted below. General Appearance: no apparent distress, obese Respiratory: chest non-tender, lungs clear, normal breath sounds, no respiratory distress Cardiovascular: normal peripheral pulses, regular rate, rhythm, no murmur Gastrointestinal: normal bowel sounds, non tender, soft, no organomegaly Neurologic/Psychiatric: alert, normal mood/affect, oriented x 3 Assessment/Plan 84 y/o female h/o COPD on 2L at home presents w/ acute onset shortness of breath DVT, bilateral w/ concern for PE - warfarin/lovenox, encourage IS use and PT. Wean O2 as tolerated Constipation - restart home linzess for refractory constipation, inpatient bowel regimen as noted HTN - continue present management. 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
[2017-09-22] MEDS: CITALOPRAM 20 MG TAB PO SCH (09:57)
[2017-09-22] MEDS ORDERED: POLYETHYLENE (MIRALAX) 17 GM PACK PO ONE (15:43)
[2017-09-22] MEDS ORDERED: DOCUSATE SODIUM 100 MG CAP PO ONE (15:45)
[2017-09-22] MEDS: LINZESS - ORDER AWAITING ACTION SCH (16:00)
[2017-09-22] MEDS: WARFARIN SOD 5 MG TAB PO SCH (16:49)
[2017-09-22] MEDS: DOCUSATE SODIUM 100 MG CAP PO SCH (21:00)
[2017-09-22] MEDS: ROPINIROLE HCL 0.25 MG TAB PO SCH (21:23)
[2017-09-22] MEDS: SIMVASTATIN 20 MG TAB PO SCH (21:25)
[2017-09-23] VITALS (7 sets, daily range): BP systolic 146–152; BP diastolic 79–80; PULSE 78–96; TEMP 36.7–37; O2SAT 95–98
[2017-09-23] MEDS: ENOXAPARIN 100 MG/1ML SYR SQ SCH ×2 (06:04→19:04)
[2017-09-23] MEDS: LEVOTHYROXINE 100 MCG TAB PO SCH (06:04)
[2017-09-23 06:34] LABS: BASO % 0.4 %; BASO ABS # 0.03 K/uL (0-0.2); EOS % 0.7 %; EOS ABS # 0.05 K/uL (0-0.5); HEMATOCRIT 33.7 % (37-47); HEMOGLOBIN 10.7 g/dL (12.0-16.0); LYMPH % 15.8 %; LYMPH ABS # 1.09 K/uL (1.2-3.4); MEAN CELL VOLUME 98.5 fL (80-100); MEAN CORPUSCULAR HEMOGLOBIN 31.3 pg (25-34); MEAN CORPUSCULAR HGB CONC 31.8 g/dl (32-36); MEAN PLATELET VOLUME 10.6 fL (7.4-10.4); MONO % 10.2 %; NEUT % 68.5 %; NEUT ABS # 4.72 K/uL (1.4-6.5); NUCLEATED RED BLOOD CELL ABS 0.07 K/uL (0-0); PLATELET COUNT 163 K/uL (130-400); RED CELL DISTRIBUTION WIDTH CV 16.4 % (11.5-14.5); RED CELL DISTRIBUTION WIDTH SD 58.5 fL (36.4-46.3); WHITE BLOOD COUNT 6.89 K/uL (4.8-10.8)
[2017-09-23 06:49] LABS: PTT PATIENT 28.8 SECONDS (21.0-31.0)
[2017-09-23 07:05] LABS: CALCIUM 8.5 mg/dl (8.5-10.1); CREATININE 0.73 mg/dl (0.60-1.20); POTASSIUM 3.6 mmol/L (3.5-5.1)
[2017-09-23] MEDS: ALBUT/IPRATROP 3MG/0.5MG NEB 3 ML VIAL INH SCH ×4 (07:35→20:18)
[2017-09-23] MEDS: LINZESS - ORDER AWAITING ACTION SCH ×4 (08:00→23:16)
[2017-09-23] MEDS: INSULIN ASPART 100 UNITS/ML 3 ML PEN SC SCH ×4 (08:00→22:09)
[2017-09-23] MEDS: BOOST GLUCOSE CONTROL PO SCH ×2 (09:00→21:54)
[2017-09-23] MEDS ORDERED: POLYETHYLENE (MIRALAX) 17 GM PACK PO SCH (09:00)
[2017-09-23] MEDS ORDERED: INSULIN GLARGINE SOLOSTAR 100 UNITS/ML 3 ML PEN SC SCH ×2 (09:00)
[2017-09-23] MEDS: LACTOBACILLUS ACIDOPHILUS 1 GM PACK PO SCH ×3 (09:42→18:00)
[2017-09-23] MEDS: NYSTATIN POWDER 15GM BTL EXT SCH ×3 (09:43→21:00)
[2017-09-23] MEDS: SPIRONOLACTONE 25 MG TAB PO SCH ×2 (09:43→21:47)
[2017-09-23] MEDS: CITALOPRAM 20 MG TAB PO SCH (09:44)
[2017-09-23] MEDS: DOCUSATE SODIUM 100 MG CAP PO SCH ×2 (09:44→21:47)
[2017-09-23] MEDS: GABAPENTIN 300 MG CAP PO SCH ×2 (09:45→21:47)
[2017-09-23] MEDS: CALCITRIOL 0.25 MCG CAP PO SCH (09:47)
[2017-09-23] MEDS: TRAMADOL HCL 50 MG TAB PO SCH ×4 (09:54→21:54)
--- NOTE | 2017-09-23 10:22 | Pharmacy Progress Note ---
Glycemic Control Progress Note Date of Service Sep 23, 2017. Scope Glycemic Pharmacist consulted for glycemic control to write orders per [facility] inpatient glycemic control protocol. Objective Accuchecks BSG (last 24hrs): Test 09/22/17 12:10 09/22/17 17:07 09/22/17 20:28 09/23/17 06:15 Bedside Glucose 127 mg/dl (70-90) 229 mg/dl (70-90) 229 mg/dl (70-90) Random Glucose 100 mg/dl (70-99) Test 09/23/17 08:10 Bedside Glucose 101 mg/dl (70-90) HbA1c: Test 09/20/17 04:59 Hemoglobin A1c 6.8 % (4.5-5.6) H Recent Pertinent Medications The patient is currently receiving: * Basal insulin: Lantus 15-20 units every 24 hours in the morning * Correctional Insulin: Novolog Correction per scale ACHS Goal Range: Low 120 mg/dL - High 160 mg/dL Correction Factor: 25 mg/dL/unit * Prandial insulin: Per carb ratio of 1 unit per 8 grams CHO consumed Outpatient Anti-Diabetic Meds Lantus 20 units qAM plus Novolog in the PM Assessment & Plan ASSESSMENT: * See progress note from 09/20/16 for more background info, in short: * Pt receiving SQ basal bolus insulin regimen for hyperglycemia secondary to baseline DM (outpatient regimen on hold),stress (on home prednisone dose of 32.5 mg daily). * Patient is currently receiving an average of 36 units of insulin per day * 15 units of basal insulin * 21 units of prandial/correctional insulin * BSGs ranging 94 - 229 mg/dl over the past 24hrs * Changes needed to insulin regimen: * AM Fasting BSG = 100 mg/dl. This is slightly below goal range for patient based on inpatient targets and co-morbidities. Will continue dose of Lantus 15 units once daily. Consider removing correction at bedtime to allow for increased fasting and therefore more basal insulin. Patient would most likely benefit from NPH due to chronic steroid use. * Post-prandial BSGs are elevated therefore need to tighten CF/CR. May require tighter coverage at lunch and dinner. * Total daily dose = ~35-40 units. PLAN FOR INPATIENT GLYCEMIC CONTROL: * Continuing Lantus 15 units SQ qAM * Tightening correction factor to 20 mg/dl/unit * Tightening carb ratio to 1 unit per 7 grams CHO consumed * Changing goal range to Low 110 mg/dL - High 140 mg/dL RECOMMENDATIONS FOR DISCHARGE: * Patient's HbA1C indicates excellent glycemic coverage. Can continue home regiment as long as patient does not have low blood sugars at home. Thank you.
[2017-09-23] MEDS: WARFARIN SOD 5 MG TAB PO SCH (16:11)
--- NOTE | 2017-09-23 17:16 | Family Medicine Progress Note ---
Progress Note Date of Service Sep 23, 2017. Subjective Pt evaluation today including: conversation w/ patient, conversation w/ family , physical exam, chart review, lab review, review of inpatient medication list Pain: Chest and leg pain reported PO Intake: Tolerating PO intake Voiding: incontinence Ms. Philip reports she continues to have right sided chest pain and pain in both legs. She states her breathing has improved slightly but that she still feels short of breath at rest. She also reports she has not yet had a bowel movement and that she has abdominal pain. She lives at home with her daughter and has a nurse come in 1-2 a week to help. Constitutional: No fever, No chills Respiratory: + shortness of breath, No cough, No sputum, No wheezing Cardiovascular: + chest pain Abdomen: + pain, + constipation, No nausea, No vomiting Female : + incontinence All Other Systems: Reviewed and Negative Medications Current Inpatient Medications Medications (Trade) Dose Ordered Sig/Natasha Route Start Time Stop Time Status Last Admin Dose Admin Ioversol (Optiray 320) 111 ml UD PRN IV 09/19/17 17:15 09/23/17 17:14 Calcitriol (Rocaltrol Cap) 0.25 mcg DAILY PO 09/20/17 09:00 10/20/17 08:59 09/23/17 09:47 0.25 MCG Citalopram Hydrobromide (celeXA TAB) 30 mg DAILY PO 09/20/17 09:00 10/20/17 08:59 09/23/17 09:44 30 MG Gabapentin (Neurontin Cap) 300 mg BID PO 09/20/17 09:00 10/20/17 08:59 09/23/17 09:45 300 MG Hydrocodone Bit/ Homatropine Methylb (Hycodan Syrup) 5 ml Q4H PRN PO 09/19/17 21:15 10/03/17 21:14 Levothyroxine Sodium (Synthroid Tab) 100 mcg DAILYBB PO 09/20/17 06:00 10/20/17 06:59 09/23/17 06:04 100 MCG Lorazepam (Ativan Tab) 0.5 mg HS PRN PO 09/19/17 21:15 10/19/17 21:14 Midodrine (Proamatine Tab) 2.5 mg TID PRN PO 09/19/17 21:15 10/19/17 21:14 Nystatin (Mycostatin Powder) 1 appln TID EXT 09/20/17 09:00 10/20/17 08:59 09/23/17 09:43 1 APPLN Prednisone (PredniSONE TAB) 2.5 mg DAILY PO 09/20/17 09:00 10/20/17 08:59 09/23/17 09:46 2.5 MG Prednisone (PredniSONE TAB) 30 mg DAILY PO 09/20/17 09:00 10/20/17 08:59 09/23/17 09:46 30 MG Ropinirole HCl (Requip Tab) 0.25 mg HS PO 09/20/17 21:00 10/20/17 20:59 09/22/17 21:23 0.25 MG Simvastatin (Zocor Tab) 20 mg HS PO 09/20/17 21:00 10/20/17 20:59 09/22/17 21:25 20 MG Spironolactone (Aldactone Tab) 25 mg BID PO 09/20/17 09:00 10/20/17 08:59 09/23/17 09:43 25 MG Tramadol HCl (Ultram Tab) 50 mg QID PO 09/20/17 09:00 10/20/17 08:59 09/23/17 13:10 50 MG Albuterol/ Ipratropium (Duoneb) 3 ml QIDR INH 09/20/17 08:00 10/20/17 07:59 09/23/17 15:52 3 ML Lactobacillus Acidophilus (Lactinex Granules Pack) 1 gm TIDM PO 09/20/17 07:15 10/20/17 07:59 09/23/17 13:09 1 GM Acetaminophen (Tylenol Tab) 650 mg Q4H PRN PO 09/19/17 21:15 10/19/17 21:14 09/20/17 14:47 650 MG Al Hydrox/Mg Hydrox/Simethicone (Maalox Max Susp) 15 ml Q4H PRN PO 09/19/17 21:15 10/19/17 21:14 Magnesium Hydroxide (Milk Of Magnesia Susp) 30 ml Q12H PRN PO 09/19/17 21:15 10/19/17 21:14 Zolpidem Tartrate (Ambien Tab) 5 mg HSZ PRN PO 09/19/17 21:15 10/19/17 21:14 Ondansetron HCl (Zofran Inj) 4 mg Q6H PRN IV 09/19/17 21:15 10/19/17 21:14 Polyethylene (Miralax Powder Packet) 17 gm DAILY PRN PO 09/19/17 21:15 10/19/17 21:14 Insulin Aspart (novoLOG ASPART) SLIDING SCALE If C... ACHS SC 09/20/17 06:45 10/20/17 06:59 09/23/17 13:45 7 UNITS Glucose (Glucose 40% Gel) 15-30 GRAMS 15 GRAMS... UD PRN PO 09/19/17 21:15 10/19/17 21:14 Glucose (Glucose Chew Tab) 4-8 Tablets 4 Tabl... UD PRN PO 09/19/17 21:15 10/19/17 21:14 Dextrose (Dextrose 50% 50ML Syringe) 25-50ML OF 50% DW IV FOR... UD PRN IV 09/19/17 21:15 10/19/17 21:14 Glucagon (Glucagon Inj) 1 mg UD PRN SQ 09/19/17 21:15 10/19/17 21:14 Miscellaneous Information (Consult Glycemic Management Pharmacy) 1 ea UD PRN N/A 09/19/17 21:55 10/19/17 21:54 Enteral Nutritional Formula (Boost Glucose Control) 1 can BID PO 09/20/17 21:00 10/20/17 20:59 09/23/17 09:00 1 CAN Warfarin Sodium (Coumadin Tab) 5 mg DAILY@16 PO 09/21/17 19:00 10/21/17 18:59 09/23/17 16:11 5 MG Enoxaparin Sodium (Lovenox Inj) 100 mg Q12H SQ 09/21/17 19:00 10/21/17 18:59 09/23/17 06:04 100 MG Insulin Glargine (Lantus Solostar Pen) SEE PROTOCOL TEXT QAM SC 09/23/17 09:00 10/23/17 08:59 09/23/17 10:04 15 UNITS Miscellaneous Information (Order Awaiting Action) 1 ea QS N/A 09/22/17 16:00 10/22/17 15:59 Docusate Sodium (coLACE CAP) 100 mg BID PO 09/22/17 21:00 10/22/17 20:59 09/23/17 09:44 100 MG Polyethylene (Miralax Powder Packet) 17 gm BID PO 09/23/17 21:00 10/23/17 08:59 Ferrous Sulfate (Feosol Tab) 325 mg QAM PO 09/24/17 09:00 10/24/17 08:59 Objective Vital Signs Date Time Temp Pulse Resp B/P (MAP) Pulse Ox O2 Delivery O2 Flow Rate FiO2 09/23/17 15:53 82 18 96 Nasal Cannula 3.0 09/23/17 15:44 95 18 147/80 (102) 97 09/23/17 13:35 Nasal Cannula 2.0 09/23/17 11:21 87 18 95 Nasal Cannula 3.0 09/23/17 07:59 36.7 80 18 146/79 (101) 95 Nasal Cannula 2.0 09/23/17 07:45 Nasal Cannula 3.0 09/23/17 07:35 78 18 98 Nasal Cannula 4.0 09/23/17 00:06 Nasal Cannula 3.0 09/22/17 23:43 36.4 86 16 137/68 (91) 98 Nasal Cannula 3.5 09/22/17 20:07 87 18 95 Nasal Cannula 3.0 Physical Exam General Appearance: WD/WN, no apparent distress Respiratory/Chest: no respiratory distress, no accessory muscle use, + decreased breath sounds Cardiovascular: regular rate, rhythm, no gallop, no JVD, no murmur Abdomen: normal bowel sounds, no organomegaly, no pulsatile mass, + distended, + tenderness Laboratory Results Last 24 Hours Test 09/22/17 20:28 09/23/17 06:15 09/23/17 08:10 09/23/17 12:06 Bedside Glucose 229 mg/dl 101 mg/dl 109 mg/dl White Blood Count 6.89 K/uL Red Blood Count 3.42 M/uL Hemoglobin 10.7 g/dL Hematocrit 33.7 % Mean Corpuscular Volume 98.5 fL Mean Corpuscular Hemoglobin 31.3 pg Mean Corpuscular Hemoglobin Concent 31.8 g/dl Platelet Count 163 K/uL Mean Platelet Volume 10.6 fL Neutrophils (%) (Auto) 68.5 % Lymphocytes (%) (Auto) 15.8 % Monocytes (%) (Auto) 10.2 % Eosinophils (%) (Auto) 0.7 % Basophils (%) (Auto) 0.4 % Neutrophils # (Auto) 4.72 K/uL Lymphocytes # (Auto) 1.09 K/uL Monocytes # (Auto) 0.70 K/uL Eosinophils # (Auto) 0.05 K/uL Basophils # (Auto) 0.03 K/uL RDW Standard Deviation 58.5 fL RDW Coefficient of Variation 16.4 % Immature Granulocyte % (Auto) 4.4 % Immature Granulocyte # (Auto) 0.30 K/uL Nucleated RBC Absolute Count (auto) 0.07 K/uL Nucleated Red Blood Cells % 1.0 % Prothrombin Time 10.8 SECONDS Prothromb Time International Ratio 1.0 Activated Partial Thromboplast Time 28.8 SECONDS Partial Thromboplastin Ratio 1.1 Sodium Level 138 mmol/L Potassium Level 3.6 mmol/L Chloride Level 104 mmol/L Carbon Dioxide Level 28 mmol/L Anion Gap 6.0 mmol/L Blood Urea Nitrogen 15 mg/dl Creatinine 0.73 mg/dl Est Creatinine Clear Calc Drug Dose 68.1 ml/min Estimated GFR () 90.2 Estimated GFR (Non- 77.8 BUN/Creatinine Ratio 20.1 Random Glucose 100 mg/dl Calcium Level 8.5 mg/dl Assessment and Plan Ms. Philip is a 84 year old female with COPD, chronic respiratory failure (on 2 L of oxygen at home) who is currently requiring 3L O2 with SOB and chest pain likely from PE. Acute and chronic respiratory failure from PE vs. PNA - Hx of obesity hypoventilation syndrome, Obstructive sleep apnea, Diaphragmatic paralysis/neuromuscular disorder, Steroid myopathy (Chronic steroid dependence) - On O2 3L NC - wean as tolerated - suspected cause is PE given bilateral DVTs and improvement in symptoms with anticoagulation - On chronic prednisone dosage - Continue duonebs Bilateral DVTs - provoked 1st episode 2/2 sedentary lifestyle - Venous doppler - bilateral DVTs - Started on Coumadin and lovenox (stop 24hrs after INR >+2) Constipation - miralax BID - daughter brought Linzess from home DM - on chronic steroids - Lantus 15 daily and SS Hypothyroidism - Continue levothyroxine Hyperlipidemia - Continue simvastatin Depression - citalopram 40mg Migraine - Fiorcet PRN at home Anemia - restart home iron tablet - Hgb stable at 10.7 Code: Full DVT Prophylaxis: Lovenox Disposition: likely d/c tomorrow. PT to eval tomorrow morning again. Resident Tracking Resident Involvement: Resident Care Provided Care Provided: Adult Hospital Medicine History Resident Physician Supervision Note: I was present with Dr. Baird during the history and exam. I discussed the case with the resident and agree with the findings and plan as documented in the note. Any exceptions or clarifications are listed here. Pt reports gradual improvement in shortness of breath and nonproductive today and has been working with PT with difficulty but is resting in chair at time of examination. Still no BM and with abdominal discomfort therefrom. Chronic pain is grossly unchanged. General Appearance: no apparent distress, obese Respiratory: no respiratory distress, decreased breath sounds, wheezing Cardiovascular: normal peripheral pulses, regular rate, rhythm, no murmur Gastrointestinal: normal bowel sounds, non tender, soft, no organomegaly Assessment/Plan 84 y/o female h/o COPD on 2L at home presents w/ acute onset shortness of breath DVT, bilateral w/ concern for PE - warfarin/lovenox, encourage IS use and PT. Wean O2 as tolerated Constipation - linzess for refractory constipation, inpatient bowel regimen as noted HTN - continue present management. 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
[2017-09-23] MEDS: ROPINIROLE HCL 0.25 MG TAB PO SCH (21:47)
[2017-09-23] MEDS: SIMVASTATIN 20 MG TAB PO SCH (21:47)
[2017-09-23] MEDS: POLYETHYLENE (MIRALAX) 17 GM PACK PO SCH (21:48)
[2017-09-24 05:55] LABS: HEMATOCRIT 34.4 % (37-47); HEMOGLOBIN 11.2 g/dL (12.0-16.0); MEAN CELL VOLUME 97.2 fL (80-100); MEAN CORPUSCULAR HEMOGLOBIN 31.6 pg (25-34); MEAN CORPUSCULAR HGB CONC 32.6 g/dl (32-36); MEAN PLATELET VOLUME 10.5 fL (7.4-10.4); NUCLEATED RED BLOOD CELL ABS 0.08 K/uL (0-0); PLATELET COUNT 171 K/uL (130-400); RED CELL DISTRIBUTION WIDTH CV 16.2 % (11.5-14.5); RED CELL DISTRIBUTION WIDTH SD 58.1 fL (36.4-46.3); WHITE BLOOD COUNT 7.85 K/uL (4.8-10.8)
[2017-09-24 06:12] LABS: INR 1.4 (0.9-1.1); PTT PATIENT 31.3 SECONDS (21.0-31.0)
[2017-09-24] MEDS: LEVOTHYROXINE 100 MCG TAB PO SCH (06:13)
[2017-09-24] MEDS: ENOXAPARIN 100 MG/1ML SYR SQ SCH (06:13)
[2017-09-24] MEDS ORDERED: LVNIS100 SQ (06:55)
[2017-09-24] MEDS ORDERED: CMD5 PO (06:55)
[2017-09-24] MEDS: ALBUT/IPRATROP 3MG/0.5MG NEB 3 ML VIAL INH SCH ×2 (07:14→11:25)
[2017-09-24 07:16] VITALS: PULSE 80; O2SAT 98
[2017-09-24] MEDS ORDERED: LOVENOX TEACHING KIT ONE (07:30)
[2017-09-24] MEDS: LINZESS - ORDER AWAITING ACTION SCH (07:34)
[2017-09-24 07:55] VITALS: BP 162/81; PULSE 88; TEMP 36.9; O2SAT 96
[2017-09-24] MEDS ORDERED: INSULIN GLARGINE SOLOSTAR 100 UNITS/ML 3 ML PEN SC SCH (09:00)
[2017-09-24] MEDS ORDERED: FERROUS SULFATE 325 MG TAB PO SCH (09:00)
[2017-09-24] MEDS: BOOST GLUCOSE CONTROL PO SCH (09:26)
[2017-09-24] MEDS: NYSTATIN POWDER 15GM BTL EXT SCH (09:35)
[2017-09-24] MEDS: LACTOBACILLUS ACIDOPHILUS 1 GM PACK PO SCH (09:35)
[2017-09-24] MEDS: SPIRONOLACTONE 25 MG TAB PO SCH (09:36)
[2017-09-24] MEDS: GABAPENTIN 300 MG CAP PO SCH (09:36)
[2017-09-24] MEDS: DOCUSATE SODIUM 100 MG CAP PO SCH (09:37)
[2017-09-24] MEDS: CITALOPRAM 20 MG TAB PO SCH (09:37)
[2017-09-24] MEDS: POLYETHYLENE (MIRALAX) 17 GM PACK PO SCH (09:38)
[2017-09-24] MEDS: CALCITRIOL 0.25 MCG CAP PO SCH (09:39)
[2017-09-24] MEDS: TRAMADOL HCL 50 MG TAB PO SCH (09:42)
[2017-09-24] MEDS: INSULIN ASPART 100 UNITS/ML 3 ML PEN SC SCH (09:44)
[2017-09-24] MEDS ORDERED: LINA1CAP PO (10:14)
--- NOTE | 2017-09-24 10:46 | Discharge Instructions ---
Discharge Instructions Date of Service Sep 24, 2017. Admission Reason for Admission: Metabolic Encephalopathy VTE Date & Time Date of VTE Diagnosis: Sep 20, 2017 Time of VTE Diagnosis: 07:02 Discharge Goals Goal(s): Decrease discomfort, Improve function, Increase independence Activity Recommendations Activity Limitations: resume your previous activity . Instructions / Follow-Up Instructions / Follow-Up You were admitted to [facility] because you were having trouble breathing and you were confused and feeling weak. Below are the medical problems addressed during your stay: Blood Clots in Legs - you were found to have blood clots in both of your legs - we treated this with heparin, which thins your blood, and will be sending you home on lovenox and warfarin, to continue to keep your blood thin - please use the lovenox as prescribed and stop using it once your INR level is above 2 (your family doctor will tell you when it is safe to do this) - please see below for medication instructions regarding warfarin Breathing Problems - your breathing problems are likely due to a mix of your COPD, neuromuscular dysfunction and possible sleep apnea - this was worsened by your suspected blood clot in your lungs, which has been improving day by day with the blood thinners you are taking - please continue to stay on your oxygen at all times at home and use your CPAP at night Constipation - we have renewed your prescription for linzess which will hopefully help your bowels move - if the linzess does not help, please speak to your primary care provider about possible alternate medications Anemia - your hemoglobin (blood levels) have been stable at 11.2 - please continue to take your iron tablet as prescribed Medication Instructions: * Warfarin is a medicine prescribed to prevent blood clots * Warfarin will thin your blood and help prevent new clots * Take your medications exactly as directed * Never skip a dose. Never take a double dose. If you miss a dose, take it as soon as you remember * It is important for your doctor to monitor your prothrombin time (PT). This is a lab test * Keep your appointment for lab tests Risk of Adverse Drug Reactions and Interactions: * Warfarin increases your risk of bleeding * The food you eat and other medications you take can affect how Warfarin works in your body * Ask your doctor about daily aspirin therapy * It is very important to talk with your doctor about all of the other medicines , antibiotics, vitamins or herbal products that you are taking * All of your medication must be approved by your doctor, including new medicines, as well as medicines you have taken before you started taking Warfarin Diet: * In order for Warfarin to work properly, it is important to keep your intake of Vitamin K as consistent as possible * You should avoid any sudden change in Vitamin K intake * Report any significant changes in your diet or weight to your doctor Call your Primary Care doctor if you experience any of the following: * Swelling or Pain in your leg * Sudden, continuous pain deep in a muscle * Pain that worsens when you are active or when you stand still for a long time * Chest Pain * Sudden Shortness of Breath * Rapid or pounding heart beat * Fainting * Dizziness * Cough with blood or bloody sputum * Sweating more than normal * Bruises * Heavy or uncontrolled bleeding * Blood in your urine, stool or vomit * Black or tarry stools Caring for Your Self at Home: * Avoid sitting, standing or lying down for long periods without moving your legs and feet * When traveling by car, stop to get out and move around at least once every 3 hours * On long airplane, train or bus rides, get up and move around when possible * If you can't get up, wiggle your toes and tighten your calves to keep your blood moving Follow Up: It is important for you to keep your follow up appointments with your medical provider. Current Hospital Diet Patient's current hospital diet: Diabetes Type 2 Diet Discharge Diet Recommended Diet: Diabetes Type 2 Diet Pending Studies Studies pending at discharge: no Laboratory Results Hemoglobin A1c Test 09/20/17 04:59 Range/Units Estimated Average Glucose 148 mg/dl Hemoglobin A1c 6.8 H 4.5-5.6 % Lipid Panel Test 07/05/17 11:44 Range/Units Triglycerides Level 380 H 0-150 mg/dl Cholesterol Level 254 H 0-200 mg/dl HDL Cholesterol 61 mg/dl Cholesterol/HDL Ratio 4.2 LDL Cholesterol, Calculated 117 mg/dl Medical Emergencies . Who to Call and When: Medical Emergencies: If at any time you feel your situation is an emergency, please call 911 immediately. . Non-Emergent Contact Non-Emergency issues call your: Primary Care Provider . . "Provider Documentation" section prepared by Taty Baird. . VTE Core Measure Inpt VTE Proph given/why not?: Enoxaparin (Lovenox)SQ, Warfarin (Coumadin) Reason no anticoag overlap I/P: Treatment provided - N/A Reason no anticoag overlap @DC: Treatment provided - N/A
--- NOTE | 2017-09-24 10:59 | Discharge Summary ---
Discharge Summary Date of Service Sep 24, 2017. Discharge Summary Admission Date: Sep 19, 2017 at 21:26 Discharge Date: Sep 24, 2017 Discharge Disposition: Home with services Principal Diagnosis: Bilateral DVTs and Suspected PE Immunizations: Have You Had Influenza Vaccine: N/A Influenza Vaccine Date: Jun 18, 2012 History of Tetanus Vaccine?: Yes Tetanus Immunization Date: Mar 18, 2004 History of Pneumococcal: Yes Pneumococcal Date: May 31, 2010 History of Hepatitis B Vaccine: No Procedures: HEAD WITHOUT CONTRAST (CT) CT DOSE: 1425.10 mGy.cm HISTORY: Mental status change confusion TECHNIQUE: Multiaxial CT images of the head were performed without the use of intravenous contrast. A dose lowering technique was utilized adhering to the principles of ALARA. Comparison: 07/07/2017 Findings: The paranasal sinuses and mastoid air cells are clear. The calvarium and skull base are intact. The ventricles and sulci are within normal limits. There is no mass, hematoma, midline shift, or acute infarct. 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 Impression: No acute intracranial abnormality. Chronic and small vessel change. Mild atrophy. CHEST ONE VIEW PORTABLE CLINICAL HISTORY: weakness mental status change COMPARISON STUDY: 08/25/2017 FINDINGS: Mild stable cardiomegaly. Chronic pleural and parenchymal change left and to lesser extent right base. Lungs otherwise appear clear. Prior operative changes to both shoulders as well as cervical spine. IMPRESSION: Chronic change. Moderate stable cardiomegaly. No acute process. ABDOMEN COMPLETE (US) CLINICAL HISTORY: 82 years-old Female presenting with abd pain. TECHNIQUE: Real-time grayscale and limited color Doppler ultrasound imaging of the abdomen was performed. COMPARISON: 01/25/[address] from 07/07/2017. FINDINGS: Examination limited by body habitus and poor sonographic windows. Pancreas: Visualized portions of the pancreatic head and body normal. Pancreatic duct top normal in size. Liver: Markedly hyperechogenic parenchyma with obscuration of the right hemidiaphragm, likely indicating marked hepatic steatosis. The liver measures 24.2 cm in maximal sagittal dimension. Limited evaluation for hepatic mass given attenuation. Main portal vein patent with normal directional flow. Biliary: No intrahepatic biliary ductal dilatation. Common bile duct measures up to 3 mm in diameter. Gallbladder: Decompressed. Sonographic Newberry's sign negative. Spleen: Normal in echogenicity and size, measuring 8.8 cm in length. Kidneys: Cortical thinning suggested bilaterally. Prominent lobulations in the left kidney. Right kidney measures 10.4 cm, and left kidney measures 9.3 cm. No hydronephrosis. Bladder: Decompressed with a Mahoney catheter. Vasculature: Visualized portions of the IVC and abdominal aorta normal. Ascites: None. IMPRESSION: 1. Severe hepatic steatosis. Correlate with liver function tests to exclude steatohepatitis as a cause for abdominal pain. 2. Renal cortical thinning could suggest medical renal disease. No hydronephrosis. ULTRASOUND BILATERAL LOWER EXTREMITY VENOUS CLINICAL HISTORY: Dyspnea. COMPARISON STUDY: Bilateral lower extremity venous ultrasound dated 01/14/2017. TECHNIQUE: Real-time, grayscale, and color Doppler sonography of the deep veins of the right and left lower extremity was performed from the inguinal crease to the calf. Compression and augmentation were utilized. FINDINGS: Right lower extremity: There is nearly occlusive deep venous thrombosis identified within the proximal popliteal vein and within one of the 2 duplicated distal popliteal veins. Deep venous thrombosis is also seen within the right calf within one of the posterior tibial veins. The remaining calf vessels are clear. The common femoral and superficial femoral veins are patent and normally compressible. The greater saphenous vein and the profunda femoris vein at the junction with the common femoral vein are clear. Left lower extremity: Nonocclusive deep venous thrombosis is seen within the proximal superficial femoral vein. Deep venous thrombosis is also seen in the calf within one of the peroneal veins. The common femoral, mid to distal portions of the superficial femoral, and popliteal veins are patent and normally compressible. The greater saphenous vein and the profunda femoris vein at the junction with the common femoral vein are clear. IMPRESSION: Bilateral deep venous thrombosis as above. Medication Reconciliation New Medications: Enoxaparin (Enoxaparin Sodium) 100 Mg/Ml Inj 100 MG SQ Q12H for 14 Days, #14 SYR Warfarin Sod (Coumadin) 5 Mg Tab 5 MG PO DAILY@16 for 30 Days, #30 TAB Continued Medications: Acetamin/Butalbital/Caffeine (Fioricet) 1 Ea Tab 1 TAB PO Q4H PRN for Headache for 30 Days, #20 TAB Calcitriol (Calcitriol) 0.25 Mcg Cap 0.25 MCG PO DAILY TAKE WITH CALCIUM Calcium Carbonate (Calcium Carbonate) 1,250 Mg Tab 1250 MG PO HS Cholecalciferol (Vitamin D3) 2,000 Unit Cap 2000 UNITS PO BID for 90 Days, CAP 3 Refills Citalopram Hydrobromide (Citalopram Hydrobromide) 20 Mg Tab 30 MG PO DAILY, TAB Cyanocobalamin (Vitamin B-12) 500 Mcg Tab 1000 MCG PO QAM, TAB Dexlansoprazole (Dexilant) 60 Mg Cap 60 MG PO QAM Diclofenac Sodium (Topical) (Voltaren 1% Top Gel) 1 % Gel 1 APPLN TOP PRN UD Ferrous Sulfate (Iron) 325 Mg Tab 325 MG PO QAM for 30 Days Gabapentin (Neurontin) 300 Mg Cap 300 MG PO BID, CAP Hydrocodone W/ Homatropine (Hycodan 5/1.5MG 5 Ml) 1 Syp Syp 5 ML PO Q4H PRN for COUGH/PAIN, ML Insulin Aspart (Novolog Flexpen) 100 Units/Ml Inj SQ QPM SLIDING SCALE Insulin Glargine (Lantus Solostar) 100 Unit/Ml Inj 20 UNITS SC QAM for 30 Days, #1 BOX Ipratropium-Albuterol (Duoneb) 3 Ml Nebu 1 TREATMENT INH Q4H PRN for SOB/Wheezing, INHA Ipratropium-Albuterol (Combivent Respimat) 1 Aer Aer 1 PUFFS INH QID, INH Levothyroxine Sodium (Levothyroxine Sodium) 100 Mcg Tab 100 MCG PO QAM for 30 Days Linaclotide (Linzess) 145 Mcg Cap 145 MCG PO DAILY PRN for Constipation for 30 Days, #30 TAB (This prescription has been renewed) Lorazepam (Ativan) 0.5 Mg Tab 0.5 MG PO HS PRN for Sleep, TAB Melatonin (Melatonin) 10 Mg Tab 10 MG PO HS Midodrine Hcl (Midodrine Hcl) 2.5 Mg Tab 1 TAB PO TID PRN for BP<100/60 or if up and about for 30 Days Nystatin (Topical) (Nystop) 100,000 Unit/Gm Pow 1 APPLN TOP TID Potassium Chloride (Potassium Chloride Er) 10 Meq Cap 20 MEQ PO BID for 30 Days Prednisone (Prednisone) 2.5 Mg Tab 2.5 MG PO DAILY, TAB CURRENT DOSE: 32.5MG only adjusted by drug safety associate..dr. anne Prednisone Tab (Prednisone) 10 Mg Tab 30 MG PO DAILY CURRENT DOSE: 32.5MG only adjusted by drug safety associate..dr. anne Riboflavin (Riboflavin) 400 Mg Tab 400 MG PO QAM Ropinirole (Requip) 0.25 Mg Tab 0.25-0.5 MG PO HS, TAB Simvastatin (Zocor) 20 Mg Tab 20 MG PO HS, TAB Spironolactone (Spironolactone) 25 Mg Tab 25 MG PO BID for 30 Days, #60 TAB Tiotropium [place] (Spiriva Respimat) 1.25 Mcg/Act Aer 2 PUFF INH DAILY, INHALER Tramadol (Ultram) 50 Mg Tab 50 MG PO QID Discharge Exam Ms. Philip reports she feels about the same today as yesterday. She remains with her chest pain and pain in both legs. She states that her breathing has been improving day by day. She also reports mild abdominal pain, and has not had a BM in a week, which she states is normal for her. She states she is ready for discharge and prefers home over a rehab facility. Review of Systems: Constitutional: No fever, No chills Respiratory: + shortness of breath, No cough, No sputum, No wheezing Cardiovascular: + chest pain, No palpitations Abdomen: + pain, + constipation, No nausea, No vomiting, No diarrhea Genitourinary - Female: + urinary incontinence Hospital Course Ms. Philip is a 84 year old female with COPD, chronic respiratory failure (on 2 L of oxygen at home) who was admitted with shortness of breath, AMS, weakness and chest pain. Bilateral DVTs - provoked 1st episode secondary to sedentary lifestyle - Venous doppler showed bilateral DVTs - discharged on Coumadin and lovenox (stop 24hrs after INR >+2) - will need f/u with PCP to determine when to d/c lovenox and follow INR levels Acute on chronic respiratory failure secondary to suspected PE - Hx of obesity hypoventilation syndrome, Obstructive sleep apnea, Diaphragmatic paralysis/neuromuscular disorder, Steroid myopathy (Chronic steroid dependence) - initially had an increased oxygen demand, and on d/c, is at her home requirement of 2L - treated for pneumonia at first, but no improvement with antibiotics - suspected cause is PE given bilateral DVTs and improvement in symptoms with anticoagulation - unable to complete CT to rule out PE given IVs were not patent - continue home respiratory regimen w/inhalers and nebs as needed Constipation - no BMs whilst in hospital - daughter brought Linzess from home, but it was and therefore a new prescription was sent for Linzess Anemia - Hgb stable at 11.2 Code: Full DVT Prophylaxis: Lovenox Disposition: likely d/c tomorrow. PT to eval tomorrow morning again. Total Time Spent: Less than 30 minutes This includes examination of the patient, discharge planning, medication reconciliation, and communication with other providers. Discharge Instructions Please refer to the electronic Patient Visit Report (Discharge Instructions) for additional information. Additional Copies To Michael De Souza M.D. Resident Tracking Resident Involvement: Resident Care Provided Care Provided: Adult Hospital Medicine History Resident Physician Supervision Note: I was present with Dr. Baird during the history and exam. I discussed the case with the resident and agree with the findings and plan as documented in the note. Any exceptions or clarifications are listed here. Pt reports continued gradual improvement in shortness of breath. Chronic right sided pain at baseline per patient. No BM as yet, still within her normal timeline between BM but would recommend Linzess (w/ nonexpired med) General Appearance: no apparent distress, obese Respiratory: chest non-tender, lungs clear, no respiratory distress, decreased breath sounds Cardiovascular: normal peripheral pulses, regular rate, rhythm, no murmur Gastrointestinal: normal bowel sounds, non tender, soft, no organomegaly Assessment/Plan 84 y/o female h/o COPD on 2L at home presents w/ acute onset shortness of breath DVT, bilateral w/ concern for PE - improving. Continue warfarin/lovenox, encourage IS use and activity with PT at home. On baseline O2 Constipation - linzess for refractory constipation, continue home bowel regimen HTN - resume home management. 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
[2017-09-24 11:25] VITALS: PULSE 88; O2SAT 97
[2017-09-24 11:26] VITALS: BP 162/81; PULSE 88; TEMP 36.9; O2SAT 97
== END 2017-09-24 13:53 | disposition home health service (06) | DRG 175 ==
LOC: EDBD 15:09 → C.EDC 15:11 → C.MSICU 21:26 → ENRESERV 21:46 → C.MSW 09-21 12:56
PROVIDERS: ADMIT Internal Medicine; ATTEND Family Medicine
DX: I26.99 Other pulmonary embolism without acute cor pulmonale (principal); J96.20 Acute and chronic respiratory failure, unspecified whether with hypoxia or hypercapnia; I50.30 Unspecified diastolic (congestive) heart failure; I82.403 Acute embolism and thrombosis of unspecified deep veins of lower extremity, bilateral; G93.41 Metabolic encephalopathy; J44.1 Chronic obstructive pulmonary disease with (acute) exacerbation; G72.0 Drug-induced myopathy; E66.2 Morbid (severe) obesity with alveolar hypoventilation; I13.0 Hypertensive heart and chronic kidney disease with heart failure and stage 1 through stage 4 chronic kidney disease, or unspecified chronic kidney disease; T38.0X5A Adverse effect of glucocorticoids and synthetic analogues, initial encounter; J45.909 Unspecified asthma, uncomplicated; Z98.1 Arthrodesis status; D64.9 Anemia, unspecified; K21.9 Gastro-esophageal reflux disease without esophagitis; Z86.14 Personal history of Methicillin resistant Staphylococcus aureus infection; J98.6 Disorders of diaphragm; K59.00 Constipation, unspecified; Z83.3 Family history of diabetes mellitus; Z99.81 Dependence on supplemental oxygen; Z79.52 Long term (current) use of systemic steroids; Z79.4 Long term (current) use of insulin; Y92.009 Unspecified place in unspecified non-institutional (private) residence as the place of occurrence of the external cause

== ENCOUNTER → 2017-09-25 | Outpatient (CLI) | payer OTHER ==
[~2017-09-25] MED LIST changes: -ACET1TAB84 PO; +APIX1TAB3 PO; +CALC12504 PO; +CHOL2000 PO; +CITA20TA4 PO; -CLX20 PO; +CMD5 PO; -ERGO500011 PO; +GABA-113 PO; +HYDR5SYP11 PO; +LCTXP PO; +LEVO1TAB35 PO; +LINA1CAP2 PO; -LPR25 PO; +LVNIS100 SQ; -NF84 PO; -NRV5 PO; +NUTR-7 PO; +PRD/25 PO; +PRMT25 PO; -VTMD1000 PO
[2017-09-25 15:35] LABS: INR 2.6 (0.9-1.1)
--- NOTE | 2017-10-13 08:57 | CODING QUERY NO DIAGNOSIS ---
: 1935 Valid Physician Order Needed A valid physician order must be submitted in order to properly bill for the service(s) provided, including date of service(s), valid diagnosis, and physician signature. If these tests are done on a recurring basis the original physician order must be submitted in order to code and bill for the service(s) provided. Please fax us the original, signed physician order so that we may expedite billing to [phone] DOS 09/25/2017 * Prothrombin Time (PT) Thank you Shanda Guadarrama [facility] Information Management
== END | disposition home or self-care (01) ==
LOC: C.LABSPEC 14:51
PROVIDERS: ATTEND Internal Medicine
DX: Z01.89 Encounter for other specified special examinations (principal)

== ENCOUNTER → 2017-09-28 | Outpatient (CLI) | payer OTHER ==
[~2017-09-28] MED LIST changes: -APIX1TAB3 PO; -LCTXP PO; -LEVO1TAB35 PO; -LINA1CAP2 PO; -NUTR-7 PO; -PRMT25 PO
[2017-09-28 16:05] LABS: INR 2.8 (0.9-1.1)
== END | disposition home or self-care (01) ==
LOC: C.LABSPEC 15:47
PROVIDERS: ATTEND Internal Medicine
DX: Z51.81 Encounter for therapeutic drug level monitoring (principal); Z79.01 Long term (current) use of anticoagulants; I82.409 Acute embolism and thrombosis of unspecified deep veins of unspecified lower extremity; I26.99 Other pulmonary embolism without acute cor pulmonale

== ENCOUNTER 2017-10-02 13:00 | Inpatient (IN) | payer OTHER ==
[~2017-10-02] VITALS: Ht 157.5 cm; Wt 95.6 kg
[~2017-10-02 13:00] MED LIST changes: -APIX1TAB3 PO; -LCTXP PO; -LEVO1TAB35 PO; -LINA1CAP2 PO; -NUTR-7 PO; -PRMT25 PO
[2017-10-02] MEDS ORDERED: OPTIRAY 320 IV PRN ×2 (13:30)
--- NOTE | 2017-10-02 13:54 | DIAGNOSTIC IMAGING REPORT ---
CHEST ONE VIEW PORTABLE HISTORY: 82 years-old Female fever acute fever COMPARISON: Chest radiograph 09/19/2017 TECHNIQUE: Portable AP view of the chest FINDINGS: Cardiac silhouette is moderately enlarged, unchanged. Atherosclerosis of the aorta. There is no pneumothorax or overt pulmonary edema. Chronic blunting of the costophrenic angles are again seen suggesting areas of atelectasis/scarring or small effusions. Linear subsegmental left basilar and lateral left midlung opacities are again seen suggesting areas of scarring. No pneumothorax. Surgical clips are seen within the right upper abdomen. Extensive fusion hardware of the thoracolumbar spine. Bilateral shoulder arthroplasties with fusion hardware of the cervical spine also noted. Post surgical or post traumatic changes of the distal clavicles bilaterally. IMPRESSION: Cardiomegaly without acute process. The above report was generated using voice recognition software. It may contain grammatical, syntax or spelling errors. Electronically signed by: Rey Campos M.D. 10/02/2017 1:52 PM Dictated Date/Time: 10/02/2017 1:50 PM
[2017-10-02 14:03] LABS: ISTAT CREATININE 0.9 mg/dl (0.6-1.3); ISTAT IONIZED CALCIUM 1.13 mmol/l (1.12-1.32); ISTAT POTASSIUM 3.8 mEq/L (3.3-5.0)
[2017-10-02 14:06] LABS: BASO % 0.4 %; BASO ABS # 0.04 K/uL (0-0.2); EOS % 0.8 %; EOS ABS # 0.07 K/uL (0-0.5); HEMATOCRIT 39.9 % (37-47); HEMOGLOBIN 12.7 g/dL (12.0-16.0); LYMPH % 16.9 %; LYMPH ABS # 1.57 K/uL (1.2-3.4); MEAN CELL VOLUME 97.6 fL (80-100); MEAN CORPUSCULAR HEMOGLOBIN 31.1 pg (25-34); MEAN CORPUSCULAR HGB CONC 31.8 g/dl (32-36); MEAN PLATELET VOLUME 10.3 fL (7.4-10.4); MONO % 7.9 %; MONO ABS # 0.73 K/uL (0.11-0.59); NEUT % 70.8 %; NEUT ABS # 6.58 K/uL (1.4-6.5); NUCLEATED RED BLOOD CELL ABS 0.04 K/uL (0-0); PLATELET COUNT 196 K/uL (130-400); RED CELL DISTRIBUTION WIDTH CV 16.2 % (11.5-14.5); RED CELL DISTRIBUTION WIDTH SD 57.8 fL (36.4-46.3); WHITE BLOOD COUNT 9.29 K/uL (4.8-10.8)
[2017-10-02 14:11] LABS: INR 3.4 (0.9-1.1)
[2017-10-02] MEDS ORDERED: PRMT25 PO (14:18)
[2017-10-02] MEDS ORDERED: LINA1CAP2 PO (14:18)
[2017-10-02 14:25] LABS: ALBUMIN 3.4 gm/dl (3.4-5.0); ALT/SGPT 43 U/L (12-78); AST/SGOT 16 U/L (15-37); BLOOD UREA NITROGEN 24 mg/dl (7-18); CALCIUM 8.6 mg/dl (8.5-10.1); CARBON DIOXIDE 32 mmol/L (21-32); CREATININE 0.97 mg/dl (0.60-1.20); GLUCOSE 86 mg/dl (70-99); POTASSIUM 3.7 mmol/L (3.5-5.1); SODIUM 138 mmol/L (136-145)
[2017-10-02 14:30] LABS: ALKALINE PHOSPHATASE 59 U/L (45-117); CKMB 1.9 ng/ml (0.5-3.6); TOTAL PROTEIN 6.7 gm/dl (6.4-8.2)
--- NOTE | 2017-10-02 15:09 | DIAGNOSTIC IMAGING REPORT ---
HEAD WITHOUT CONTRAST (CT) CLINICAL HISTORY: 82 years-old Female with FERNANDEZ . Acute headache with flulike symptoms TECHNIQUE: Multiple axial CT images of the head were obtained without contrast. A dose lowering technique was utilized adhering to the principles of ALARA. COMPARISON: CT head 09/19/2017. FINDINGS: No acute intracranial hemorrhage, midline shift, intracranial mass, hydrocephalus, territorial ischemia or abnormal extra-axial collection. Moderate atrophy with ex vacuo ventriculomegaly. Chronic microvascular ischemic changes are noted. The calvarium is intact. Small right mastoid effusion. Left mastoid air cells are clear. Small amount of fluid is also within the right inner ear cavity. Mild mucosal thickening of the right sphenoid sinus. Soft tissues are unremarkable. IMPRESSION: 1. Chronic changes as above without acute intracranial abnormality. 2. Small right mastoid effusion with fluid also seen within the right middle ear cavity. Correlate clinically to exclude otomastoiditis. 3. Mild sphenoid sinus disease. The above report was generated using voice recognition software. It may contain grammatical, syntax or spelling errors. Electronically signed by: Rey Campos M.D. 10/02/2017 3:07 PM Dictated Date/Time: 10/02/2017 3:05 PM
[2017-10-02] MEDS ORDERED: SODIUM CHLORIDE 0.9% 1000ML 1,000 ML IV STA (15:17)
--- NOTE | 2017-10-02 15:23 | DIAGNOSTIC IMAGING REPORT ---
(CHEST FOR PE) ANGIO WITH CT DOSE: 2554.08 mGy.cm HISTORY: 82 years-old Female presents with acute right-sided chest and abdominal pain TECHNIQUE: Multiple CTA images of the chest were obtained after the intravenous administration of 93 ml Optiray 320. Coronal and sagittal MIPS were obtained from the axial data set and were submitted for review. A dose lowering technique was utilized adhering to the principles of ALARA. COMPARISON: CT of the chest 07/07/2017, chest radiographs of same day, chest CT 01/21/2016. FINDINGS: CTA: Mild multichamber cardiac enlargement. No pericardial effusion identified. Coronary arterial disease. The thoracic aorta is normal in both course and caliber without aneurysm or dissection. Note is made of the left vertebral artery emanating directly from the aortic arch. The imaged great vessels are patent. Moderate atherosclerosis of the thoracic aorta. The pulmonary arterial tree is opacified to the level of the proximal segmental branches. The distal segmental and subsegmental branches are not well-seen secondary to respiratory motion. No focal filling defects identified to suggest pulmonary thromboembolic disease. CT CHEST: No focal thyroid nodule identified. No pathologic adenopathy of the chest identified. Small right pleural effusion. Subsegmental dependent bibasilar opacities suggest atelectasis. Additionally, there are scattered groundglass opacities throughout the bilateral lungs. 4 mm solid noncalcified nodule of the right upper lobe is seen on image 194 series 6 which is unchanged dating back to at least 01/21/2016 suggesting benign etiology. Linear subsegmental consolidative opacities are present within the lingula and right lower lobe. Central airways are patent. No acute amount of the imaged upper abdomen. Surgical clips are seen adjacent to the posterior right hepatic lobe. Right shoulder arthroplasties are noted in addition to fusion hardware of the thoracolumbar spine. IMPRESSION: 1. No acute aortic pathology or evidence of pulmonary thromboembolic disease. Limited evaluation of the segmental and subsegmental branches of the pulmonary arterial tree secondary to respiratory motion. 2. Cardiomegaly with small right pleural effusion and mild dependent subsegmental atelectasis. Additionally, there are linear subsegmental consolidative lingular and right lower lobe opacities with scattered ground glass densities likely reflecting additional areas of atelectasis. The above report was generated using voice recognition software. It may contain grammatical, syntax or spelling errors. Electronically signed by: Rey Campos M.D. 10/02/2017 3:21 PM Dictated Date/Time: 10/02/2017 3:13 PM
--- NOTE | 2017-10-02 15:25 | DIAGNOSTIC IMAGING REPORT ---
ABDOMEN AND PELVIS CT WITH IV CONTRAST CT DOSE: HISTORY: r sided abd pain TECHNIQUE: Multiaxial CT images of the abdomen and pelvis were performed following the use of intravenous contrast. A dose lowering technique was utilized adhering to the principles of ALARA. COMPARISON STUDY: Abdomen and pelvis CT 07/07/2017. FINDINGS: Small right pleural effusion, unchanged. Bibasilar linear densities favor subsegmental atelectasis. A 5 mm hypodense lesion within the central liver. This is too small to characterize but favors a cyst. The spleen, left adrenal gland, pancreas, and gallbladder are unremarkable. The right adrenal gland may be surgically absent. Bilateral cortical renal thinning which is likely age-related. No hydronephrosis. Small fat-containing umbilical hernia. Small subcutaneous hematoma within the right lower quadrant which measures 3.5 cm. This may be due to prior medication injection. Posterior fusion decompression seen within the lower thoracic and lumbar spine. Multiple healed bilateral rib fractures. The bladder is unremarkable. The uterus is surgically absent. No bowel wall thickening or obstruction. IMPRESSION: 1. Small right pleural effusion. 2. No bowel wall thickening or obstruction. 3. A small subcutaneous hematoma within the right lower quadrant which is likely due to prior medication injection. 4. Additional findings as described above. Electronically signed by: Jeff Maldonado M.D. 10/02/2017 3:24 PM Dictated Date/Time: 10/02/2017 3:17 PM
[2017-10-02] MEDS ORDERED: LEVAQUIN 750MG / 150ML D5W IV ONE (15:30)
[2017-10-02 15:44] LABS: INFLUENZA B ANTIGEN Neg for Influ B (NEG)
[2017-10-02] MEDS ORDERED: PIPERACILLIN/TAZOBACTAM 4.5 GM/100ML D5W IV STA (15:45)
[2017-10-02] MEDS ORDERED: BUTALBITAL/ACETAMIN/CAFFEINE TAB PO PRN (16:45)
[2017-10-02] MEDS ORDERED: ONDANSETRON INJ 2 MG/ML 2 ML VIAL IV PRN (16:45)
[2017-10-02] MEDS ORDERED: ALUMINUM/MAGNESIUM/SIMETH (MAALOX MAX) 30 ML UDC PO PRN (16:45)
[2017-10-02] MEDS ORDERED: NITROGLYCERIN 0.4 MG SL PER TAB CHARGE SL PRN (16:45)
[2017-10-02] MEDS ORDERED: MAGNESIUM HYDROXIDE SUSP 30 ML UDC PO PRN (16:45)
[2017-10-02] MEDS ORDERED: NON-FORMULARY MEDICATION (Linaclotide (Linzess) 290 MCG) PO PRN (16:45)
[2017-10-02] MEDS ORDERED: OSELTAMIVIR PHOSPHATE 75 MG CAP PO STA (17:04)
[2017-10-02] MEDS ORDERED: VANCOMYCIN INJ 1,000 MG in SODIUM CHLORIDE 0.9% 250ML 250 ML IV SCH (17:45)
[2017-10-02] MEDS ORDERED: VANCOMYCIN CONSULT ACTIVE PRN (17:45)
[2017-10-02] MEDS ORDERED: GLUCAGON FOR INJ 1 MG VIAL SQ PRN (18:30)
[2017-10-02] MEDS ORDERED: DEXTROSE 50% 50 ML SYR IV PRN (18:30)
[2017-10-02] MEDS ORDERED: GLUCOSE 10 TABS/TUBE PO PRN (18:30)
[2017-10-02] MEDS ORDERED: GLUCOSE 40% GEL 15 GM TUBE PO PRN (18:30)
[2017-10-02] MEDS ORDERED: PIPERACILLIN/TAZOBACTAM 4.5 GM/100ML D5W ONE (18:38)
[2017-10-02 18:50] VITALS: BP 158/78; PULSE 86; TEMP 37.3; O2SAT 98; BMI 38.3
[2017-10-02] MEDS ORDERED: VANCOMYCIN INJ 2,250 MG in SODIUM CHLORIDE 0.9% 500ML 500 ML IV SCH (19:00)
--- NOTE | 2017-10-02 19:18 | EMERGENCY ROOM VISIT NOTE ---
History Report prepared by Suzanna: Agnes Vasquez Under the Supervision of: Carlos RyanO. First contact with patient: 13:01 Stated Complaint: FLU SX History of Present Illness The patient is a 82 year old female who presents to the Emergency Room with complaints of persistent right sided pain that began one day ago. She notes her discomfort worsens with exertion. The patient states that she has shortness of breath, a runny nose, and a cough that began yesterday. She notes that her last bowel movement was yesterday. The patient states she normally is on 3L of oxygen. She denies falling frequently or having any recent falls. The patient was seen in the Emergency Department on 09/19/17 for sepsis and was admitted for a possible PE and bilateral DVT. The HPI is limited due to poor cooperation from the patient. Daughter admits that patient has been more confused and requiring increased oxygen recently. Source of History: patient History Limited By: poor cooperation Onset: one day ago Position: other (right sided pain) Symptom Intensity: persistent Quality: other (right sided pain) Modifying Factors (Worsening): exertion Associated Symptoms: + cough, + SOB Review of Systems See HPI for pertinent positives & negatives. A total of 10 systems reviewed and were otherwise negative. 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 (13) UMANA (dyspnea on exertion) (14) Dyspnea, unspecified (15) Gastroesophageal reflux disease (16) Metabolic encephalopathy (17) MRSA pneumonia (18) Sepsis (19) Syncope due to orthostatic hypotension Family History Diabetes mellitus FH: cancer FH: gallbladder disease FH: heart disease FH: lung disease Hypertension Kidney disease or stones Social History Smoking Status: Unknown if Ever Smoked Alcohol Use: none Drug Use: none Marital Status: Housing Status: lives with family Occupation Status: retired Current/Historical Medications Scheduled Calcitriol (Calcitriol), 0.25 MCG PO DAILY Calcium Carbonate (Calcium Carbonate), 1,250 MG PO HS Cholecalciferol (Vitamin D3), 2,000 UNITS PO BID Citalopram Hydrobromide (Citalopram Hydrobromide), 30 MG PO DAILY Cyanocobalamin (Vitamin B-12), 1,000 MCG PO QAM Dexlansoprazole (Dexilant), 60 MG PO QAM Diclofenac Sodium (Topical) (Voltaren 1% Top Gel), 1 APPLN TOP PRN UD Enoxaparin (Enoxaparin Sodium), 100 MG SQ Q12H Ferrous Sulfate (Iron), 325 MG PO QAM Gabapentin (Neurontin), 300 MG PO BID Insulin Aspart (Novolog Flexpen), SQ QPM Insulin Glargine (Lantus Solostar), 20 UNITS SC QAM Ipratropium-Albuterol (Combivent Respimat), 1 PUFFS INH QID Levothyroxine Sodium (Levothyroxine Sodium), 100 MCG PO QAM Melatonin (Melatonin), 10 MG PO HS Midodrine (Midodrine HCl), 2.5 MG PO TID Nystatin (Topical) (Nystop), 1 APPLN TOP TID Potassium Chloride (Potassium Chloride Er), 20 MEQ PO BID Prednisone (Prednisone), 2.5 MG PO DAILY Prednisone Tab (Prednisone), 30 MG PO DAILY Riboflavin (Riboflavin), 400 MG PO QAM Ropinirole (Requip), 0.25-0.5 MG PO HS Simvastatin (Zocor), 20 MG PO HS Spironolactone (Spironolactone), 25 MG PO BID Tiotropium [place] (Spiriva Respimat), 2 PUFF INH DAILY Tramadol (Ultram), 50 MG PO QID Warfarin Sod (Coumadin), 5 MG PO DAILY@16 Scheduled PRN Acetamin/Butalbital/Caffeine (Fioricet), 1 TAB PO Q4H PRN for Headache Hydrocodone W/ Homatropine (Hycodan 5/1.5MG 5 Ml), 5 ML PO Q4H PRN for COUGH/ PAIN Ipratropium-Albuterol (Duoneb), 1 TREATMENT INH Q4H PRN for SOB/Wheezing Linaclotide (Linzess), 290 MCG PO DAILY PRN for Constipation Lorazepam (Ativan), 0.5 MG PO HS PRN for Sleep Allergies Coded Allergies: Pneumococcal Vaccine (Verified Allergy, Severe, SHORTNESS OF BREATH, ) Erythromycin (Verified Allergy, Mild, RASH, 10/02/17) Adhesives (Verified Allergy, Unknown, TAPE-REDNESS, BLISTERS, 10/02/17) Metronidazole (Verified Allergy, Unknown, skin rash, 10/02/17) allergic to generic form Phenazopyridine (Verified Allergy, Unknown, abdominal pain/rash, 10/02/17) Polymyxin B (Verified Allergy, Unknown, 10/02/17) Salicylates (Verified Allergy, Unknown, pt states rash with ASA 325 but not ASA 81mg, 10/02/17) Tetracycline (Verified Allergy, Unknown, RASH, 10/02/17) Morphine (Verified Adverse Reaction, Intermediate, urinary retention - oral morphine only, 10/02/17) Diltiazem (Verified Adverse Reaction, Mild, FLUID RETENTION, 10/02/17) Metoclopramide (Verified Adverse Reaction, Mild, TREMORS, 10/02/17) Bacitracin (Verified Adverse Reaction, Unknown, "MAKES IT WORSE"-OK IF NOT OTC MEDICATION, 10/02/17) OKAY IF NOT OVER THE COUNTER MEDICATION Physical Exam Vital Signs Date Time Temp Pulse Resp B/P (MAP) Pulse Ox O2 Delivery O2 Flow Rate FiO2 10/02/17 18:50 37.3 86 22 158/78 (104) 98 Nasal Cannula 2.0 10/02/17 17:25 91 10/02/17 17:06 92 20 133/67 95 Nasal Cannula 3.0 10/02/17 15:11 85 20 129/64 94 Nasal Cannula 3.0 10/02/17 13:38 36.9 97 16 127/68 97 Nasal Cannula 10/02/17 13:13 85 Physical Exam GENERAL: Sitting up in bed, eyes closed, disheveled, not wanting to answer questions alert, well appearing, well nourished, no distress, non-toxic EYE EXAM: normal conjunctiva. PERRL and EOM's grossly intact. OROPHARYNX: no exudate, no erythema, lips, buccal mucosa, and tongue normal and mucous membranes are moist NECK: supple, no nuchal rigidity, no adenopathy, non-tender LUNGS: Clear to auscultation. Normal chest wall mechanics HEART: no murmurs, S1 normal and S2 normal CHEST: Severe acute reproducible tenderness across right wall/right abdomen. ABDOMEN: Bruising on abdomen. Abdomen soft, non-tender, normo-active bowel sounds, no masses, no rebound or guarding. BACK: Back is symmetrical on inspection and there is no deformity, no midline tenderness, no CVA tenderness. SKIN: no rashes and no bruising UPPER EXTREMITIES: upper extremities are grossly normal. LOWER EXTREMITIES: No pitting edema. NEURO EXAM: Awake, alert, following commands, no focal deficit. Normal sensorium , cranial nerves II-XII grossly intact, normal speech, no gross weakness of arms, no gross weakness of legs. Medical Decision & Procedures ER Provider Diagnostic Interpretation: Radiology results as stated below per my review and the radiologist's interpretation: HEAD WITHOUT CONTRAST (CT) CLINICAL HISTORY: 82 years-old Female with FERNANDEZ . Acute headache with flulike symptoms TECHNIQUE: Multiple axial CT images of the head were obtained without contrast. A dose lowering technique was utilized adhering to the principles of ALARA. COMPARISON: CT head 09/19/2017. FINDINGS: No acute intracranial hemorrhage, midline shift, intracranial mass, hydrocephalus, territorial ischemia or abnormal extra-axial collection. Moderate atrophy with ex vacuo ventriculomegaly. Chronic microvascular ischemic changes are noted. The calvarium is intact. Small right mastoid effusion. Left mastoid air cells are clear. Small amount of fluid is also within the right inner ear cavity. Mild mucosal thickening of the right sphenoid sinus. Soft tissues are unremarkable. IMPRESSION: 1. Chronic changes as above without acute intracranial abnormality. 2. Small right mastoid effusion with fluid also seen within the right middle ear cavity. Correlate clinically to exclude otomastoiditis. 3. Mild sphenoid sinus disease. The above report was generated using voice recognition software. It may contain grammatical, syntax or spelling errors. Electronically signed by: Rey Campos M.D. 10/02/2017 3:07 PM Dictated Date/Time: 10/02/2017 3:05 PM ABDOMEN AND PELVIS CT WITH IV CONTRAST CT DOSE: HISTORY: r sided abd pain TECHNIQUE: Multiaxial CT images of the abdomen and pelvis were performed following the use of intravenous contrast. A dose lowering technique was utilized adhering to the principles of ALARA. COMPARISON STUDY: Abdomen and pelvis CT 07/07/2017. FINDINGS: Small right pleural effusion, unchanged. Bibasilar linear densities favor subsegmental atelectasis. A 5 mm hypodense lesion within the central liver. This is too small to characterize but favors a cyst. The spleen, left adrenal gland, pancreas, and gallbladder are unremarkable. The right adrenal gland may be surgically absent. Bilateral cortical renal thinning which is likely age-related. No hydronephrosis. Small fat-containing umbilical hernia. Small subcutaneous hematoma within the right lower quadrant which measures 3.5 cm. This may be due to prior medication injection. Posterior fusion decompression seen within the lower thoracic and lumbar spine. Multiple healed bilateral rib fractures. The bladder is unremarkable. The uterus is surgically absent. No bowel wall thickening or obstruction. IMPRESSION: 1. Small right pleural effusion. 2. No bowel wall thickening or obstruction. 3. A small subcutaneous hematoma within the right lower quadrant which is likely due to prior medication injection. 4. Additional findings as described above. Electronically signed by: Jeff Maldonado M.D. 10/02/2017 3:24 PM Dictated Date/Time: 10/02/2017 3:17 PM (CHEST FOR PE) ANGIO WITH CT DOSE: 2554.08 mGy.cm HISTORY: 82 years-old Female presents with acute right-sided chest and abdominal pain TECHNIQUE: Multiple CTA images of the chest were obtained after the intravenous administration of 93 ml Optiray 320. Coronal and sagittal MIPS were obtained from the axial data set and were submitted for review. A dose lowering technique was utilized adhering to the principles of ALARA. COMPARISON: CT of the chest 07/07/2017, chest radiographs of same day, chest CT 01/21/2016. FINDINGS: CTA: Mild multichamber cardiac enlargement. No pericardial effusion identified. Coronary arterial disease. The thoracic aorta is normal in both course and caliber without aneurysm or dissection. Note is made of the left vertebral artery emanating directly from the aortic arch. The imaged great vessels are patent. Moderate atherosclerosis of the thoracic aorta. The pulmonary arterial tree is opacified to the level of the proximal segmental branches. The distal segmental and subsegmental branches are not well-seen secondary to respiratory motion. No focal filling defects identified to suggest pulmonary thromboembolic disease. CT CHEST: No focal thyroid nodule identified. No pathologic adenopathy of the chest identified. Small right pleural effusion. Subsegmental dependent bibasilar opacities suggest atelectasis. Additionally, there are scattered groundglass opacities throughout the bilateral lungs. 4 mm solid noncalcified nodule of the right upper lobe is seen on image 194 series 6 which is unchanged dating back to at least 01/21/2016 suggesting benign etiology. Linear subsegmental consolidative opacities are present within the lingula and right lower lobe. Central airways are patent. No acute amount of the imaged upper abdomen. Surgical clips are seen adjacent to the posterior right hepatic lobe. Right shoulder arthroplasties are noted in addition to fusion hardware of the thoracolumbar spine. IMPRESSION: 1. No acute aortic pathology or evidence of pulmonary thromboembolic disease. Limited evaluation of the segmental and subsegmental branches of the pulmonary arterial tree secondary to respiratory motion. 2. Cardiomegaly with small right pleural effusion and mild dependent subsegmental atelectasis. Additionally, there are linear subsegmental consolidative lingular and right lower lobe opacities with scattered ground glass densities likely reflecting additional areas of atelectasis. The above report was generated using voice recognition software. It may contain grammatical, syntax or spelling errors. Electronically signed by: Rey Campos M.D. 10/02/2017 3:21 PM Dictated Date/Time: 10/02/2017 3:13 PM CHEST ONE VIEW PORTABLE HISTORY: 82 years-old Female fever acute fever COMPARISON: Chest radiograph 09/19/2017 TECHNIQUE: Portable AP view of the chest FINDINGS: Cardiac silhouette is moderately enlarged, unchanged. Atherosclerosis of the aorta. There is no pneumothorax or overt pulmonary edema. Chronic blunting of the costophrenic angles are again seen suggesting areas of atelectasis/scarring or small effusions. Linear subsegmental left basilar and lateral left midlung opacities are again seen suggesting areas of scarring. No pneumothorax. Surgical clips are seen within the right upper abdomen. Extensive fusion hardware of the thoracolumbar spine. Bilateral shoulder arthroplasties with fusion hardware of the cervical spine also noted. Post surgical or post traumatic changes of the distal clavicles bilaterally. IMPRESSION: Cardiomegaly without acute process. The above report was generated using voice recognition software. It may contain grammatical, syntax or spelling errors. Electronically signed by: Rey Campos M.D. 10/02/2017 1:52 PM Dictated Date/Time: 10/02/2017 1:50 PM Laboratory Results 10/02/17 13:52 Red Blood Count 4.09, Mean Corpuscular Volume 97.6, Mean Corpuscular Hemoglobin 31.1, Mean Corpuscular Hemoglobin Concent 31.8, Mean Platelet Volume 10.3, Neutrophils (%) (Auto) 70.8, Lymphocytes (%) (Auto) 16.9, Monocytes (%) (Auto) 7.9, Eosinophils (%) (Auto) 0.8, Basophils (%) (Auto) 0.4, Neutrophils # (Auto) 6.58, Lymphocytes # (Auto) 1.57, Monocytes # (Auto) 0.73, Eosinophils # (Auto) 0.07, Basophils # (Auto) 0.04 10/02/17 13:52 Test 10/02/17 13:49 10/02/17 13:52 10/02/17 16:59 10/02/17 17:11 Bedside Lactic Acid Venous 2.10 mmol/L (0.90-1.70) White Blood Count 9.29 K/uL (4.8-10.8) Red Blood Count 4.09 M/uL (4.2-5.4) Hemoglobin 12.7 g/dL (12.0-16.0) Hematocrit 39.9 % (37-47) Mean Corpuscular Volume 97.6 fL (80-100) Mean Corpuscular Hemoglobin 31.1 pg (25-34) Mean Corpuscular Hemoglobin Concent 31.8 g/dl (32-36) Platelet Count 196 K/uL (130-400) Mean Platelet Volume 10.3 fL (7.4-10.4) Neutrophils (%) (Auto) 70.8 % Lymphocytes (%) (Auto) 16.9 % Monocytes (%) (Auto) 7.9 % Eosinophils (%) (Auto) 0.8 % Basophils (%) (Auto) 0.4 % Neutrophils # (Auto) 6.58 K/uL (1.4-6.5) Lymphocytes # (Auto) 1.57 K/uL (1.2-3.4) Monocytes # (Auto) 0.73 K/uL (0.11-0.59) Eosinophils # (Auto) 0.07 K/uL (0-0.5) Basophils # (Auto) 0.04 K/uL (0-0.2) Bedside Hemoglobin 13.6 g/dl (12.0-16.0) Bedside Hematocrit 40 % (37-47) RDW Standard Deviation 57.8 fL (36.4-46.3) RDW Coefficient of Variation 16.2 % (11.5-14.5) Immature Granulocyte % (Auto) 3.2 % Immature Granulocyte # (Auto) 0.30 K/uL (0.00-0.02) Nucleated RBC Absolute Count (auto) 0.04 K/uL (0-0) Nucleated Red Blood Cells % 0.5 % Prothrombin Time 34.5 SECONDS (9.0-12.0) Prothromb Time International Ratio 3.4 (0.9-1.1) Bedside Sodium 140 mEq/L (135-144) Bedside Potassium 3.8 mEq/L (3.3-5.0) Bedside Chloride 98 mEq/L (101-112) Bedside Total CO2 30 mEq/l (24-31) Anion Gap 17.0 mmol/L (16-25) Bedside Blood Urea Nitrogen 26 mg/dl (7-18) Bedside Creatinine 0.9 mg/dl (0.6-1.3) Est Creatinine Clear Calc Drug Dose 50.0 ml/min Estimated GFR () 63.9 Estimated GFR (Non- 55.2 BUN/Creatinine Ratio 24.4 (10-20) Bedside Glucose (other) 92 mg/dl (70-99) Calcium Level 8.6 mg/dl (8.5-10.1) Bedside Ionized Calcium (Suzie) 1.13 mmol/l (1.12-1.32) Magnesium Level 1.9 mg/dl (1.8-2.4) Total Bilirubin 0.5 mg/dl (0.2-1) Direct Bilirubin < 0.1 mg/dl (0-0.2) Aspartate Amino Transf (AST/SGOT) 16 U/L (15-37) Alanine Aminotransferase (ALT/SGPT) 43 U/L (12-78) Alkaline Phosphatase 59 U/L (45-117) Total Creatine Kinase 52 U/L (26-192) Creatine Kinase MB 1.9 ng/ml (0.5-3.6) Creatine Kinase MB Ratio 3.7 (0-3.0) Troponin I < 0.015 ng/ml (0-0.045) Total Protein 6.7 gm/dl (6.4-8.2) Albumin 3.4 gm/dl (3.4-5.0) Influenza Type A Antigen Neg for Influ A (NEG) Influenza Type B Antigen Neg for Influ B (NEG) Urine Color YELLOW Urine Appearance CLEAR (CLEAR) Urine pH 5.0 (4.5-7.5) Urine Specific [place] > 1.045 (1.000-1.030) Urine Protein NEG (NEG) Urine Glucose (UA) NEG (NEG) Urine Ketones NEG (NEG) Urine Occult Blood NEG (NEG) Urine Nitrite NEG (NEG) Urine Bilirubin NEG (NEG) Urine Urobilinogen NEG (NEG) Urine Leukocyte Esterase NEG (NEG) Venous Blood pH 7.41 (7.36-7.41) Venous Blood Partial Pressure CO2 44 mmHg (38.0-50.0) Venous Blood Partial Pressure O2 46 mmHg Venous Blood HCO3 27 mmol/L Venous Blood Oxygen Saturation 80.4 % Venous Blood Base Excess 2.4 mEq/L Laboratory results per my review. Medications Administered Medications (Trade) Dose Ordered Sig/Natasha Route Start Time Stop Time Status Last Admin Dose Admin Sodium Chloride 1,000 ml @ 999 mls/hr Q1H1M STAT IV 10/02/17 15:17 10/02/17 16:17 DC 10/02/17 15:44 999 MLS/HR Levofloxacin (Levaquin / D5W) 750 mg NOW ONCE IV 10/02/17 15:30 10/02/17 15:31 DC 10/02/17 15:44 750 MG Piperacillin Sod/ Tazobactam Sod (Zosyn Iv) 4.5 gm NOW STAT IV 10/02/17 15:45 10/02/17 15:46 DC 10/02/17 15:45 4.5 GM ECG Indication: other (pain) Rate (beats per minute): 87 Rhythm: sinus rhythm Findings: no ectopy, other (normal axis) ED Course ED COURSE: Vital signs were reviewed and showed normal vital signs. The patients medical record was reviewed The above diagnostic studies were performed and reviewed. ED treatments and interventions as stated above. 1302: The patient was evaluated in room C8. A complete history and physical examination was performed. 1330: Ordered Optiray 320 100ml IV. 1440: I reevaluated the patient, who was resting. She states that she has been dizzy for the past week or so. I updated the patient on test findings and she verbalized complete understanding. 1517: Ordered Sodium Chloride 1000 ml @ 999 mls/hr IV. 1530: Ordered Levaquin 750mg IV. 1540: I reevaluated the patient, who was still resting. I updated her on test findings. 1545: Ordered Zosyn IV 4.5gm IV. 1601: I reviewed the patient's case with KLEVER Sharma. He will evaluate the patient for further management. Medical Decision Differential diagnoses includes but is not limited to pneumonia, bronchitis, COPD/Asthma exacerbation, pneumothorax, pulmonary embolism, congestive heart failure, acute coronary syndrome. Patient is a 82-year-old female who presents to ER with chills, nausea, cough and runny nose associated with diffuse right-sided chest and abdominal pain. Recently admitted and discharged following DVTs and possible PEs placed on anticoagulation. She was brought back in for the above complaints associated with worsening confusion. CBC all BMP, LFTs, bilirubin and troponin was negative. Lactate was elevated at 2.1. INR was 3.4. ABG was unremarkable. UA was negative. CT PE shows consolidations which I favor likely infectious as she has upper esterase symptoms. She was covered with antibiotics. Patient family were updated bedside. Discussed with internal medicine. She was admitted with increased oxygen requirements, shortness of breath, and likely pneumonia. Medication Reconcilliation Current Medication List: was personally reviewed by me Consults Time Called: 1601 Consulting Physician: KLEVER Sharma Returned Call: 1601 I reviewed the patient's case with KLEVER Sharma. He will evaluate the patient for further management. Impression Primary Impression: PNA (pneumonia) Scribe Attestation The scribe's documentation has been prepared under my direction and personally reviewed by me in its entirety. I confirm that the note above accurately reflects all work, treatment, procedures, and medical decision making performed by me. Departure Information Dispostion Being Evaluated By Hospitalist Michael Tabares M.D. (PCP) Forms HOME CARE DOCUMENTATION FORM, IMPORTANT VISIT INFORMATION, WORK / SCHOOL INSTRUCTIONS Problem Qualifiers Primary Impression: PNA (pneumonia) Pneumonia type: due to unspecified organism Laterality: unspecified laterality Lung location: unspecified part of lung Qualified Codes: J18.9 - Pneumonia, unspecified organism
[2017-10-02] MEDS ORDERED: SODIUM CHLORIDE 0.9% 1000ML 1,000 ML IV SCH (19:36)
[2017-10-02 20:00] VITALS: O2SAT 98
[2017-10-02] MEDS ORDERED: OSELTAMIVIR PHOSPHATE 75 MG CAP PO SCH (21:00)
[2017-10-02] MEDS: INSULIN ASPART 100 UNITS/ML 3 ML PEN SC SCH (21:00)
[2017-10-02] MEDS ORDERED: CEFEPIME IV 1,000 MG in DEXTROSE 5% 100ML 100 ML IV SCH (21:00)
[2017-10-02] MEDS: IPRATROPIUM BROMIDE/ALBUTEROL respimat INH INH SCH ×2 (21:00→21:06)
[2017-10-02] MEDS: TRAMADOL HCL 50 MG TAB PO SCH ×2 (21:00→21:04)
[2017-10-02] MEDS ORDERED: NON-FORMULARY MEDICATION (Melatonin 10 MG) PO SCH (21:00)
[2017-10-02] MEDS: NYSTATIN POWDER 15GM BTL EXT SCH (21:05)
[2017-10-02] MEDS: OSELTAMIVIR PHOSPHATE SUSP 30 MG/5 ML UDP PO SCH (21:06)
[2017-10-02] MEDS: POTASSIUM CHLORIDE 10 MEQ TABCR PO SCH (21:07)
[2017-10-02] MEDS: MIDODRINE 2.5 MG TAB PO SCH (21:08)
[2017-10-02] MEDS: ROPINIROLE HCL 0.25 MG TAB PO SCH (21:09)
[2017-10-02] MEDS: CALCIUM CARBONATE 1250MG TAB PO SCH (21:09)
[2017-10-02] MEDS: CHOLECALCIFEROL 1000 INTER.UNIT TAB PO SCH (21:10)
[2017-10-02] MEDS: SIMVASTATIN 20 MG TAB PO SCH (21:10)
[2017-10-02] MEDS: GABAPENTIN 300 MG CAP PO SCH (21:11)
[2017-10-02] MEDS: CEFEPIME IV 1,000 MG in SYRINGE 0 ML IV SCH (21:32)
--- NOTE | 2017-10-02 23:06 | History and Physical ---
History & Physical Date & Time of Service: Oct 02, 2017 at 17:00 Chief Complaint: Flu Sx Primary Care Physician: Michael De Souza M.D. History of Present Illness Source: patient, family (daughter at bedside) 82yo female with numerous medical problems including recent hospital stay for b/ l LE DVT and suspected PE, chronic hypoxic respiratory failure on home o2, T2DM , chronic diastolic CHF, and HTN - discharged home on lovenox bridge with coumadin on September 24 from [facility] - who presents with several days of headaches, right-sided chest pain, abdominal discomfort, diffuse myalgias, cough , diffuse arthralgias, cold chills, and then the development of mild confusion/ lethargy over the weekend. Most of the history was obtained from her daughter with whom she lives as the patient was altered. Appetite was surprisingly ok until this AM. Uses a walker for ambulation and had been doing ok post-discharge but was more fatigued today. Recent flu A exposure (2 grand-children, some-time in late August/early September). Daughter confirms that the lovenox injections have been stopped and she remains on once daily coumadin 5mg. Last INR was 2.[address] . Saw Dr. Khalil from pulmonary this past Monday and at that time pneumonia was not suspected. Past Medical/Surgical History PMH/PSH: 1. h/o MRSA pneumonia 2. h/o prednisone induced myopathy 3. Migraine Headaches 4. COPD, steroid dependent 5. chronic hypoxic respiratory failure 6. b/l DVT with suspected PEs - 08/2017 7. HTN 8. T2DM 9. orthostatic hypotension 10. hyperlipidemia 11. restless Leg Syndrome 12. Hypothyroidism 13. Depression 14. chronic diastolic CHF 15. h/o right R Diaphragmatic Paralysis S/P Plication 16. GERD 17. H/O Thyroid Cancer 18. 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, ) Immunizations History of Influenza Vaccine: N/A Influenza Vaccine Date: Jun 18, 2012 History of Tetanus Vaccine?: Yes Tetanus Immunization Date: Mar 18, 2004 History of Pneumococcal: Yes Pneumococcal Date: May 31, 2010 History of Hepatitis B Vaccine: No Multi-Drug Resistant Organisms History of MDRO: Yes Type of MDRO: MRSA Allergies Coded Allergies: Pneumococcal Vaccine (Verified Allergy, Severe, SHORTNESS OF BREATH, ) Erythromycin (Verified Allergy, Mild, RASH, 10/02/17) Adhesives (Verified Allergy, Unknown, TAPE-REDNESS, BLISTERS, 10/02/17) Metronidazole (Verified Allergy, Unknown, skin rash, 10/02/17) allergic to generic form Phenazopyridine (Verified Allergy, Unknown, abdominal pain/rash, 10/02/17) Polymyxin B (Verified Allergy, Unknown, 10/02/17) Salicylates (Verified Allergy, Unknown, pt states rash with ASA 325 but not ASA 81mg, 10/02/17) Tetracycline (Verified Allergy, Unknown, RASH, 10/02/17) Morphine (Verified Adverse Reaction, Intermediate, urinary retention - oral morphine only, 10/02/17) Diltiazem (Verified Adverse Reaction, Mild, FLUID RETENTION, 10/02/17) Metoclopramide (Verified Adverse Reaction, Mild, TREMORS, 10/02/17) Bacitracin (Verified Adverse Reaction, Unknown, "MAKES IT WORSE"-OK IF NOT OTC MEDICATION, 10/02/17) OKAY IF NOT OVER THE COUNTER MEDICATION Home Medications Scheduled Calcitriol (Calcitriol), 0.25 MCG PO DAILY Calcium Carbonate (Calcium Carbonate), 1,250 MG PO HS Cholecalciferol (Vitamin D3), 2,000 UNITS PO BID Citalopram Hydrobromide (Citalopram Hydrobromide), 30 MG PO DAILY Cyanocobalamin (Vitamin B-12), 1,000 MCG PO QAM Dexlansoprazole (Dexilant), 60 MG PO QAM Diclofenac Sodium (Topical) (Voltaren 1% Top Gel), 1 APPLN TOP PRN UD Enoxaparin (Enoxaparin Sodium), 100 MG SQ Q12H Ferrous Sulfate (Iron), 325 MG PO QAM Gabapentin (Neurontin), 300 MG PO BID Insulin Aspart (Novolog Flexpen), SQ QPM Insulin Glargine (Lantus Solostar), 20 UNITS SC QAM Ipratropium-Albuterol (Combivent Respimat), 1 PUFFS INH QID Levothyroxine Sodium (Levothyroxine Sodium), 100 MCG PO QAM Melatonin (Melatonin), 10 MG PO HS Midodrine (Midodrine HCl), 2.5 MG PO TID Nystatin (Topical) (Nystop), 1 APPLN TOP TID Potassium Chloride (Potassium Chloride Er), 20 MEQ PO BID Prednisone (Prednisone), 2.5 MG PO DAILY Prednisone Tab (Prednisone), 30 MG PO DAILY Riboflavin (Riboflavin), 400 MG PO QAM Ropinirole (Requip), 0.25-0.5 MG PO HS Simvastatin (Zocor), 20 MG PO HS Spironolactone (Spironolactone), 25 MG PO BID Tiotropium [place] (Spiriva Respimat), 2 PUFF INH DAILY Tramadol (Ultram), 50 MG PO QID Warfarin Sod (Coumadin), 5 MG PO DAILY@16 Scheduled PRN Acetamin/Butalbital/Caffeine (Fioricet), 1 TAB PO Q4H PRN for Headache Hydrocodone W/ Homatropine (Hycodan 5/1.5MG 5 Ml), 5 ML PO Q4H PRN for COUGH/ PAIN Ipratropium-Albuterol (Duoneb), 1 TREATMENT INH Q4H PRN for SOB/Wheezing Linaclotide (Linzess), 290 MCG PO DAILY PRN for Constipation Lorazepam (Ativan), 0.5 MG PO HS PRN for Sleep Review of Systems Constitutional: + chills (1-2 days), + weakness, + fatigue, No fever, No weight loss Eyes: No worsening of vision ENT: + nasal symptoms, + trouble swallowing, No sore throat Respiratory: + cough, + sputum, + wheezing, + shortness of breath Cardiovascular: + chest pain (right-sided), No orthopnea, No PND, No edema Abdomen: + pain, No nausea, No vomiting, No diarrhea, No GI bleeding Musculoskeletal: + joint pain (diffuse), + muscle pain (diffuse ) Genitourinary - Female: No dysuria Neurologic: + weakness Psychiatric: + depression symptoms Endocrine: + fatigue Hematologic / Lymphatic: + abnormal bleeding/bruising (since starting coumadin) Integumentary: No rash Physical Exam Vital Signs Date Time Temp Pulse Resp B/P (MAP) Pulse Ox O2 Delivery O2 Flow Rate FiO2 10/02/17 15:11 85 20 129/64 94 Nasal Cannula 3.0 10/02/17 13:38 36.9 97 16 127/68 97 Nasal Cannula 10/02/17 13:13 85 General Appearance: + mild distress (looks ill, moaning, but will open her eyes to commands), + obese Head: normocephalic, atraumatic, + pertinent finding (no tenderness over the mastoids b/l) Eyes: PERRL, sclerae normal ENT: + pertinent finding (MM dry, no lesions) Neck: supple (no meningismus, no rigidity ), no adenopathy, no JVD Respiratory/Chest: no respiratory distress, no accessory muscle use, + crackles (mild, right base), + pertinent finding (no wheezes; good airation ) Cardiovascular: regular rate, rhythm, no gallop, no murmur, normal peripheral pulses Abdomen/GI: normal bowel sounds, non tender, soft, no organomegaly Back: normal inspection Extremities/Musculoskelatal: no pedal edema Neurologic/Psych: + pertinent finding (sleepy, but awakens to commands; no facial droop; strength 5/5 x 4 exts; DTRs 2+ b/l ) Skin: no rash Lymphatic: no adenopathy (no cervical lymphadenopathy ) Diagnostics Laboratory Results Results Past 24 Hours Test 10/02/17 13:49 10/02/17 13:52 10/02/17 16:42 Range/Units Bedside Lactic Acid Venous 2.10 0.90-1.70 mmol/L White Blood Count 9.29 4.8-10.8 K/uL Red Blood Count 4.09 4.2-5.4 M/uL Hemoglobin 12.7 12.0-16.0 g/dL Hematocrit 39.9 37-47 % Mean Corpuscular Volume 97.6 80-100 fL Mean Corpuscular Hemoglobin 31.1 25-34 pg Mean Corpuscular Hemoglobin Concent 31.8 32-36 g/dl Platelet Count 196 130-400 K/uL Mean Platelet Volume 10.3 7.4-10.4 fL Neutrophils (%) (Auto) 70.8 % Lymphocytes (%) (Auto) 16.9 % Monocytes (%) (Auto) 7.9 % Eosinophils (%) (Auto) 0.8 % Basophils (%) (Auto) 0.4 % Neutrophils # (Auto) 6.58 1.4-6.5 K/uL Lymphocytes # (Auto) 1.57 1.2-3.4 K/uL Monocytes # (Auto) 0.73 0.11-0.59 K/uL Eosinophils # (Auto) 0.07 0-0.5 K/uL Basophils # (Auto) 0.04 0-0.2 K/uL Bedside Hemoglobin 13.6 12.0-16.0 g/dl Bedside Hematocrit 40 37-47 % RDW Standard Deviation 57.8 36.4-46.3 fL RDW Coefficient of Variation 16.2 11.5-14.5 % Immature Granulocyte % (Auto) 3.2 % Immature Granulocyte # (Auto) 0.30 0.00-0.02 K/uL Nucleated RBC Absolute Count (auto) 0.04 0-0 K/uL Nucleated Red Blood Cells % 0.5 % Prothrombin Time 34.5 9.0-12.0 SECONDS Prothromb Time International Ratio 3.4 0.9-1.1 Bedside Sodium 140 135-144 mEq/L Sodium Level 138 136-145 mmol/L Bedside Potassium 3.8 3.3-5.0 mEq/L Potassium Level 3.7 3.5-5.1 mmol/L Bedside Chloride 98 101-112 mEq/L Chloride Level 102 98-107 mmol/L Carbon Dioxide Level 32 21-32 mmol/L Bedside Total CO2 30 24-31 mEq/l Anion Gap 17.0 16-25 mmol/L Bedside Blood Urea Nitrogen 26 7-18 mg/dl Blood Urea Nitrogen 24 7-18 mg/dl Creatinine 0.97 0.60-1.20 mg/dl Bedside Creatinine 0.9 0.6-1.3 mg/dl Est Creatinine Clear Calc Drug Dose 50.0 ml/min Estimated GFR () 63.9 Estimated GFR (Non- 55.2 BUN/Creatinine Ratio 24.4 10-20 Bedside Glucose (other) 92 70-99 mg/dl Random Glucose 86 70-99 mg/dl Calcium Level 8.6 8.5-10.1 mg/dl Bedside Ionized Calcium (Suzie) 1.13 1.12-1.32 mmol/l Magnesium Level 1.9 1.8-2.4 mg/dl Total Bilirubin 0.5 0.2-1 mg/dl Direct Bilirubin < 0.1 0-0.2 mg/dl Aspartate Amino Transf (AST/SGOT) 16 15-37 U/L Alanine Aminotransferase (ALT/SGPT) 43 12-78 U/L Alkaline Phosphatase 59 45-117 U/L Total Creatine Kinase 52 26-192 U/L Creatine Kinase MB 1.9 0.5-3.6 ng/ml Creatine Kinase MB Ratio 3.7 0-3.0 Troponin I < 0.015 0-0.045 ng/ml Total Protein 6.7 6.4-8.2 gm/dl Albumin 3.4 3.4-5.0 gm/dl Influenza Type A Antigen Neg for Influ A NEG Influenza Type B Antigen Neg for Influ B NEG Microbiology Results 10/02/17 Blood Culture, Received Pending 10/02/17 Blood Culture, Received Pending Diagnostic Radiology 1. cxr - no infiltrates. 2. CTA chest - IMPRESSION: 1. No acute aortic pathology or evidence of pulmonary thromboembolic disease. Limited evaluation of the segmental and subsegmental branches of the pulmonary arterial tree secondary to respiratory motion. 2. Cardiomegaly with small right pleural effusion and mild dependent subsegmental atelectasis. Additionally, there are linear subsegmental consolidative lingular and right lower lobe opacities with scattered ground glass densities likely reflecting additional areas of atelectasis. 3. CT head - IMPRESSION: 1. Chronic changes as above without acute intracranial abnormality. 2. Small right mastoid effusion with fluid also seen within the right middle ear cavity. Correlate clinically to exclude otomastoiditis. 3. Mild sphenoid sinus disease. 4. CT abd/pelvis - IMPRESSION: 1. Small right pleural effusion. 2. No bowel wall thickening or obstruction. 3. A small subcutaneous hematoma within the right lower quadrant which is likely due to prior medication injection. 4. Additional findings as described above. EKG EKG - my reading - NSR, no ST changes; suggestion of left atrial enlargement. Impression Assessment and Plan 82yo female with multiple medical problems including COPD, chronic hypoxic respiratory failure on home o2, recent hospital admission for b/l DVTs and suspected PEs, chronic diastolic CHF, prior h/o MRSA pneumonia - presenting with chills, altered mental status, worsening cough, and diffuse arthralgias/ myalgias. Although rapid flu is negative her symptomatology is suspicious for influenza. I cannot exclude a developing pneumonia in the right lung base. 1. probable early sepsis - suspect 2nd to clinical influenza and/or right- sided pneumonia. u/a not suggestive of UTI. Follow blood/urine cultures. Will continue IV antibiotics to cover for possible gram negative pneumonia or MRSA pneumonia given her frequent hospital stays and prior MRSA pneumonia. Will presumptively Rx for influenza with tamiflu x [address] in droplet isolation. Supportive care - NC O2, inhalers/nebs prn, etc. Repeat cxr in AM to reassess her right lung. 2. metabolic encephalopathy - 2nd to #1 above. Supportive care. Check VBG to ensure no hypercarbia contributing to altered MS. 3. recent b/l DVTs - INR is supratherapeutic today; hold coumadin; daily INR. 4. COPD - not in exacerbation at this time. Defer on IV steroids; however, will give "stress-dose steroids" for #1 with prednisone 60mg daily. Defer to daytime MD for tapering. She takes 32mg daily of prednisone per Dr. Khalil. 5. chronic hypoxic respiratory failure - multifactorial based on records. She is satting well on home O2 amount. 6. T2DM - continue lantus + novolog; BSGs ac/hs. 7. orthostatic hypotension - continue midodrine. 8. chronic diastolic CHF - she appears mildly volume contracted today and not in exacerbation. 9. FEN - AHA/DM diet; NS hydration x 1 liter; lytes in AM. 10. DVT proph - on coumadin. 11. hypothyroidism - cont synthroid; most recent TSH earlier this month was normal. 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 13. abdominal pain per history - CT abd/pelvis without discrete pathology; u/a without UTI. No tenderness during my admission exam. Follow. Due to possible pneumonia? other? Daughter reported no diarrhea or constipation. Level of Care Telemetry Advanced Directives Existing Advance Directive: Yes Existing Living Will: Yes Existing Power of [employer]: Yes Resuscitation Status FULL RESUSCITATION VTE Prophylaxis VTE Risk Assessment Done? Y/N: Yes Risk Level: Moderate Given or contraindicated: Warfarin (Coumadin) Note total time about 70 min
[2017-10-02 23:58] VITALS: BP 135/81; PULSE 91; TEMP 36.8; O2SAT 95
[2017-10-03] VITALS (7 sets, daily range): BP systolic 123–148; BP diastolic 74–83; PULSE 73–88; TEMP 36.5–37.3; O2SAT 93–98
[2017-10-03 06:29] LABS: HEMATOCRIT 35.7 % (37-47); HEMOGLOBIN 11.5 g/dL (12.0-16.0); MEAN CELL VOLUME 97.5 fL (80-100); MEAN CORPUSCULAR HEMOGLOBIN 31.4 pg (25-34); MEAN CORPUSCULAR HGB CONC 32.2 g/dl (32-36); MEAN PLATELET VOLUME 10.3 fL (7.4-10.4); NUCLEATED RED BLOOD CELL ABS 0.02 K/uL (0-0); PLATELET COUNT 188 K/uL (130-400); RED CELL DISTRIBUTION WIDTH CV 16.6 % (11.5-14.5); RED CELL DISTRIBUTION WIDTH SD 59.5 fL (36.4-46.3); WHITE BLOOD COUNT 7.77 K/uL (4.8-10.8)
[2017-10-03] MEDS: LEVOTHYROXINE 100 MCG TAB PO SCH (06:33)
[2017-10-03 06:44] LABS: INR 2.5 (0.9-1.1)
[2017-10-03 06:56] LABS: CALCIUM 8.1 mg/dl (8.5-10.1); CREATININE 0.82 mg/dl (0.60-1.20); POTASSIUM 4.4 mmol/L (3.5-5.1)
[2017-10-03] MEDS: CALCITRIOL 0.25 MCG CAP PO SCH (08:46)
[2017-10-03] MEDS: TIOTROPIUM BROMIDE 5 PUFF/90 MCG INH INH SCH (08:47)
[2017-10-03] MEDS: CYANOCOBALAMIN 500 MCG TAB (VIT B-12) PO SCH (08:47)
[2017-10-03] MEDS: POTASSIUM CHLORIDE 10 MEQ TABCR PO SCH ×2 (08:47→21:37)
[2017-10-03] MEDS: IPRATROPIUM BROMIDE/ALBUTEROL respimat INH INH SCH ×4 (08:47→21:37)
[2017-10-03] MEDS: SPIRONOLACTONE 25 MG TAB PO SCH ×2 (08:48→17:05)
[2017-10-03] MEDS: CITALOPRAM 20 MG TAB PO SCH (08:48)
[2017-10-03] MEDS: CHOLECALCIFEROL 1000 INTER.UNIT TAB PO SCH ×2 (08:48→21:45)
[2017-10-03] MEDS: MIDODRINE 2.5 MG TAB PO SCH ×3 (08:49→18:38)
[2017-10-03] MEDS: GABAPENTIN 300 MG CAP PO SCH ×2 (08:49→21:45)
[2017-10-03] MEDS: FERROUS SULFATE 325 MG TAB PO SCH (08:49)
[2017-10-03] MEDS: PANTOprazole SOD 40 MG TAB PO SCH (08:49)
[2017-10-03] MEDS: INSULIN ASPART 100 UNITS/ML 3 ML PEN SC SCH ×4 (08:58→21:00)
[2017-10-03] MEDS: NYSTATIN POWDER 15GM BTL EXT SCH ×3 (09:00→21:37)
[2017-10-03] MEDS: OSELTAMIVIR PHOSPHATE SUSP 30 MG/5 ML UDP PO SCH ×2 (10:07→21:49)
[2017-10-03] MEDS: TRAMADOL HCL 50 MG TAB PO SCH ×4 (10:07→21:45)
[2017-10-03] MEDS: INSULIN GLARGINE SOLOSTAR 100 UNITS/ML 3 ML PEN SC SCH (10:11)
[2017-10-03] MEDS: VANCOMYCIN INJ 1,500 MG in SODIUM CHLORIDE 0.9% 500ML 500 ML IV SCH (13:30)
[2017-10-03] MEDS: CEFEPIME IV 1,000 MG in SYRINGE 0 ML IV SCH (18:37)
--- NOTE | 2017-10-03 19:00 | Progress Note ---
Subjective Date of Service: Oct 03, 2017. Subjective Pt evaluation today including: conversation w/ patient, physical exam Patient reports no difficulty breathing. Patient continues to have right sided chest pain. Patient denies fever, chills, cough. Problem List Medical Problems: (1) Cervical strain Status: Acute (2) Fall Status: Acute (3) Fatigue Status: Acute (4) Head injury Status: Acute (5) Head injury Status: Acute (6) Hip pain Status: Acute (7) Hypocalcemia Status: Acute (8) Hypoxia Status: Acute (9) Hypoxia Status: Acute (10) Lower extremity edema Status: Acute (11) PNA (pneumonia) Status: Acute (12) Pneumonia Status: Acute (13) Reactive airway disease Status: Acute (14) Right flank pain Status: Acute (15) Sepsis Status: Acute (16) Sepsis Status: Acute (17) Syncope Status: Acute (18) Traumatic compression fracture of third thoracic vertebra Status: Acute (19) Weakness Status: Acute Review of Systems Constitutional: No fever, No chills Eyes: No worsening of vision, No eye pain Respiratory: No cough, No sputum Cardiac: + chest pain, No orthopnea Abdomen: No pain, No nausea Psychiatric: No depression symptoms, No anhedonism Skin: No rash, No itch All Other Systems: Reviewed and Negative Medications Current Inpatient Medications Medications (Trade) Dose Ordered Sig/Natasha Route Start Time Stop Time Status Last Admin Dose Admin Ioversol (Optiray 320) 100 ml UD PRN IV 10/02/17 13:30 10/06/17 13:29 Ioversol (Optiray 320) 100 ml UD PRN IV 10/02/17 13:30 10/06/17 13:29 Acetaminophen (Tylenol Tab) 650 mg Q4H PRN PO 10/02/17 16:45 11/01/17 16:44 Al Hydrox/Mg Hydrox/Simethicone (Maalox Max Susp) 15 ml Q4H PRN PO 10/02/17 16:45 11/01/17 16:44 Magnesium Hydroxide (Milk Of Magnesia Susp) 30 ml Q12H PRN PO 10/02/17 16:45 11/01/17 16:44 Ondansetron HCl (Zofran Inj) 4 mg Q6H PRN IV 10/02/17 16:45 11/01/17 16:44 Nitroglycerin (Nitrostat Tab) 0.4 mg UD PRN SL 10/02/17 16:45 11/01/17 16:44 Acetaminophen/ Butalbital/ Caffeine (Fioricet Tab) 1 tab Q4H PRN PO 10/02/17 16:45 11/01/17 16:44 10/03/17 08:52 1 TAB Calcitriol (Rocaltrol Cap) 0.25 mcg DAILY PO 10/03/17 09:00 11/02/17 08:59 10/04/17 07:38 0.25 MCG Citalopram Hydrobromide (celeXA TAB) 30 mg DAILY PO 10/03/17 09:00 11/02/17 08:59 10/04/17 07:36 30 MG Cyanocobalamin (Vitamin B-12 Tab) 1,000 mcg QAM PO 10/03/17 09:00 11/02/17 08:59 10/04/17 07:37 1,000 MCG Gabapentin (Neurontin Cap) 300 mg BID PO 10/02/17 21:00 11/01/17 20:59 10/04/17 07:37 300 MG Insulin Glargine (Lantus Solostar Pen) 20 units QAM SC 10/03/17 09:00 11/02/17 08:59 10/04/17 07:48 20 UNITS Albuterol/ Ipratropium (Combivent Respimat Inh) 1 puffs QID INH 10/02/17 17:00 11/01/17 16:59 10/04/17 07:35 1 PUFFS Albuterol/ Ipratropium (Duoneb) 3 ml Q4H PRN INH 10/02/17 16:45 11/01/17 16:44 Levothyroxine Sodium (Synthroid Tab) 100 mcg DAILYBB PO 10/03/17 06:00 11/02/17 06:59 10/04/17 06:19 100 MCG Lorazepam (Ativan Tab) 0.5 mg HS PRN PO 10/02/17 16:45 11/01/17 16:44 Midodrine (Proamatine Tab) 2.5 mg TID@0800,1200,1800 PO 10/02/17 18:00 11/01/17 17:59 10/04/17 07:35 2.5 MG Nystatin (Mycostatin Powder) 1 appln TID EXT 10/02/17 21:00 11/01/17 20:59 10/04/17 07:38 1 APPLN Ropinirole HCl (Requip Tab) 0.25 mg HS PO 10/02/17 21:00 11/01/17 20:59 10/03/17 21:45 0.25 MG Simvastatin (Zocor Tab) 20 mg HS PO 10/02/17 21:00 11/01/17 20:59 10/03/17 21:45 20 MG Spironolactone (Aldactone Tab) 25 mg BID17 PO 10/03/17 09:00 11/02/17 08:59 10/04/17 07:34 25 MG Tramadol HCl (Ultram Tab) 50 mg QID PO 10/02/17 17:00 11/01/17 16:59 10/04/17 07:33 50 MG Insulin Aspart (novoLOG ASPART) SLIDING SCALE G... ACHS SC 10/02/17 21:00 11/01/17 20:59 10/04/17 08:21 5 UNITS Calcium Carbonate (oS-Misael 500 TAB) 1,250 mg HS PO 10/02/17 21:00 11/01/17 20:59 10/03/17 21:45 1,250 MG Cholecalciferol (Vitamin D Tab) 2,000 inter.unit BID PO 10/02/17 21:00 11/01/17 20:59 10/04/17 07:36 2,000 INTER.UNIT Pantoprazole Sodium (Protonix Tab) 40 mg QAM PO 10/03/17 09:00 11/02/17 08:59 10/04/17 07:34 40 MG Ferrous Sulfate (Feosol Tab) 325 mg QAM PO 10/03/17 09:00 11/02/17 08:59 10/04/17 07:37 325 MG Potassium Chloride (Klor-Con M10) 20 meq BID PO 10/02/17 21:00 11/01/17 20:59 10/04/17 07:38 20 MEQ Tiotropium Star (Spiriva Handihaler Inhaler) 1 puff QAM INH 10/03/17 09:00 11/02/17 08:59 10/04/17 07:36 1 PUFF Prednisone (PredniSONE TAB) 60 mg QAM PO 10/03/17 09:00 11/02/17 08:59 10/04/17 07:33 60 MG Miscellaneous Information (Consult) 1 ea UD PRN N/A 10/02/17 17:45 11/01/17 17:44 Glucose (Glucose 40% Gel) 15-30 GRAMS 15 GRAMS... UD PRN PO 10/02/17 18:30 11/01/17 18:29 Glucose (Glucose Chew Tab) 4-8 Tablets 4 Tabl... UD PRN PO 10/02/17 18:30 11/01/17 18:29 Dextrose (Dextrose 50% 50ML Syringe) 25-50ML OF 50% DW IV FOR... UD PRN IV 10/02/17 18:30 11/01/17 18:29 Glucagon (Glucagon Inj) 1 mg UD PRN SQ 10/02/17 18:30 11/01/17 18:29 Oseltamivir Phosphate (Tamiflu Susp) 30 mg BID PO 10/02/17 21:00 10/07/17 20:59 10/04/17 07:34 30 MG Cefepime HCl 1000 mg/Syringe 11 ml @ 5.5 mls/min DAILY@1800 IV 10/02/17 18:58 10/09/17 18:57 10/03/17 18:37 5.5 MLS/MIN Miscellaneous Information (Order Awaiting Action) 1 ea QS N/A 10/03/17 00:00 11/02/17 00:00 Vancomycin HCl 1500 mg/Sodium Chloride 530 ml @ 200 mls/hr Q18H IV 10/03/17 12:00 10/10/17 11:59 10/04/17 06:19 200 MLS/HR Objective Vital Signs Date Time Temp Pulse Resp B/P (MAP) Pulse Ox O2 Delivery O2 Flow Rate FiO2 10/03/17 16:00 Nasal Cannula 10/03/17 15:47 37.3 80 20 136/83 (100) 96 Nasal Cannula 3.0 10/03/17 12:00 Nasal Cannula 10/03/17 11:30 36.9 76 18 148/77 (100) 98 3.0 10/03/17 08:00 Nasal Cannula 10/03/17 08:00 36.6 86 18 123/77 (92) 96 10/03/17 07:21 36.5 88 20 136/74 (94) 98 3.0 10/03/17 04:00 Nasal Cannula 3.0 10/02/17 23:59 Nasal Cannula 3.0 10/02/17 23:58 36.8 91 18 135/81 (99) 95 3.0 10/02/17 20:00 98 Nasal Cannula 3.0 Physical Exam Comments: General Appearance: + mild distress (looks ill, moaning, but will open her eyes to commands), + obese Head: normocephalic, atraumatic, + pertinent finding (no tenderness over the mastoids b/l) Eyes: PERRL, sclerae normal ENT: + pertinent finding (MM dry, no lesions) Neck: supple (no meningismus, no rigidity ), no adenopathy, no JVD Respiratory/Chest: no respiratory distress, no accessory muscle use, + pertinent finding (no wheezes; good airation ) Cardiovascular: regular rate, rhythm, no gallop, no murmur, normal peripheral pulses Abdomen/GI: normal bowel sounds, non tender, soft, no organomegaly Back: normal inspection Extremities/Musculoskelatal: no pedal edema Neurologic/Psych: awake, no facial droop; strength 5/5 x 4 exts; DTRs 2+ b/l ) Skin: no rash Lymphatic: no adenopathy (no cervical lymphadenopathy ) Laboratory Results Last 24 Hours Test 10/02/17 20:11 10/03/17 06:12 10/03/17 06:47 10/03/17 11:06 Bedside Glucose 107 mg/dl 146 mg/dl 114 mg/dl White Blood Count 7.77 K/uL Red Blood Count 3.66 M/uL Hemoglobin 11.5 g/dL Hematocrit 35.7 % Mean Corpuscular Volume 97.5 fL Mean Corpuscular Hemoglobin 31.4 pg Mean Corpuscular Hemoglobin Concent 32.2 g/dl RDW Standard Deviation 59.5 fL RDW Coefficient of Variation 16.6 % Platelet Count 188 K/uL Mean Platelet Volume 10.3 fL Nucleated RBC Absolute Count (auto) 0.02 K/uL Nucleated Red Blood Cells % 0.3 % Prothrombin Time 25.4 SECONDS Prothromb Time International Ratio 2.5 Sodium Level 142 mmol/L Potassium Level 4.4 mmol/L Chloride Level 106 mmol/L Carbon Dioxide Level 27 mmol/L Anion Gap 9.0 mmol/L Blood Urea Nitrogen 17 mg/dl Creatinine 0.82 mg/dl Est Creatinine Clear Calc Drug Dose 58.6 ml/min Estimated GFR () 78.3 Estimated GFR (Non- 67.6 BUN/Creatinine Ratio 20.7 Random Glucose 136 mg/dl Calcium Level 8.1 mg/dl Test 10/03/17 16:18 Bedside Glucose 175 mg/dl Assessment and Plan 82yo female with multiple medical problems including COPD, chronic hypoxic respiratory failure on home o2, recent hospital admission for b/l DVTs and suspected PEs, chronic diastolic CHF, prior h/o MRSA pneumonia - presenting with chills, altered mental status, worsening cough, and diffuse arthralgias/ myalgias. Although rapid flu is negative her symptomatology is suspicious for influenza. I cannot exclude a developing pneumonia in the right lung base. 1. probable early sepsis - suspect 2nd to clinical influenza and/or right- sided pneumonia. u/a not suggestive of UTI. Follow blood/urine cultures. Patient started on antbiotics on admission. However, patient has not had a fever while in the hospital. For the moment will continue with IV antibiotics to cover for possible gram negative pneumonia or MRSA pneumonia given her frequent hospital stays and prior MRSA pneumonia. Tamiflu was started on admission, this will be stopped as patient is not having any symptoms. Supportive care - NC O2, inhalers/nebs prn, etc. 2. metabolic encephalopathy - 2nd to #1 above. Supportive care. Improved. will monitor 3. recent b/l DVTs - INR is supratherapeutic today; hold coumadin; daily INR. 4. COPD - not in exacerbation at this time. Defer on IV steroids; however, will give "stress-dose steroids" for #1 with prednisone 60mg daily. On prednisone 60 mg po daily She takes 32mg daily of prednisone per Dr. Khalil. 5. chronic hypoxic respiratory failure - multifactorial based on records. She is saturating well on home O2 amount. 6. T2DM - continue lantus + novolog; BSGs ac/hs. 7. orthostatic hypotension - continue midodrine. 8. chronic diastolic CHF - she appears mildly volume contracted today and not in exacerbation. 9. FEN - AHA/DM diet; NS hydration x 1 liter; lytes in AM. 10. DVT proph - on coumadin. 11. hypothyroidism - cont synthroid; most recent TSH earlier this month was normal. 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 13. abdominal pain per history - CT abd/pelvis without discrete pathology; u/a without UTI. No tenderness during my admission exam. Follow. 14. right sided chest pain unsure of cause. no fractures noted on exam. May be pleuritic from small effusion however, patient is tender on palpation. clinical history does not fit pleuritic chest pain. Continued [facility] stay due to: inadequate oral pain control Discharge planning: uncertain
[2017-10-03] MEDS: SIMVASTATIN 20 MG TAB PO SCH (21:45)
[2017-10-03] MEDS: ROPINIROLE HCL 0.25 MG TAB PO SCH (21:45)
[2017-10-03] MEDS: CALCIUM CARBONATE 1250MG TAB PO SCH (21:45)
[2017-10-04 03:55] VITALS: BP 156/81; PULSE 80; TEMP 37.2; O2SAT 97
[2017-10-04] MEDS: VANCOMYCIN INJ 1,500 MG in SODIUM CHLORIDE 0.9% 500ML 500 ML IV SCH (06:19)
[2017-10-04] MEDS: LEVOTHYROXINE 100 MCG TAB PO SCH (06:19)
[2017-10-04 06:27] LABS: INR 1.8 (0.9-1.1)
[2017-10-04 06:47] LABS: CREATININE 0.91 mg/dl (0.60-1.20)
--- NOTE | 2017-10-04 06:57 | DIAGNOSTIC IMAGING REPORT ---
CHEST 2 VIEWS ROUTINE CLINICAL HISTORY: Pneumonia COMPARISON STUDY: 10/02/2017 FINDINGS: There are bilateral shoulder arthroplasties. There are postsurgical changes present within the cervical spine and thoracolumbar spine. The heart remains mildly enlarged. There is a small right pleural effusion and possible trace left pleural effusion. There are persistent bibasilar opacities, likely atelectatic although a superimposed infectious/inflammatory process could appear similar.[ IMPRESSION: No significant change from the preceding study. Mild cardiomegaly. Small right pleural effusion and possible trace left pleural effusion. Persistent bibasilar opacities likely atelectatic although a superimposed infectious/inflammatory process could appear similar Electronically signed by: Edenilson Barrett M.D. 10/04/2017 6:56 AM Dictated Date/Time: 10/04/2017 6:54 AM
[2017-10-04] MEDS: TRAMADOL HCL 50 MG TAB PO SCH ×4 (07:33→19:53)
[2017-10-04] MEDS: SPIRONOLACTONE 25 MG TAB PO SCH ×2 (07:34→17:04)
[2017-10-04] MEDS: OSELTAMIVIR PHOSPHATE SUSP 30 MG/5 ML UDP PO SCH ×2 (07:34→19:52)
[2017-10-04] MEDS: PANTOprazole SOD 40 MG TAB PO SCH (07:34)
[2017-10-04] MEDS: MIDODRINE 2.5 MG TAB PO SCH ×3 (07:35→17:05)
[2017-10-04] MEDS: IPRATROPIUM BROMIDE/ALBUTEROL respimat INH INH SCH ×4 (07:35→19:53)
[2017-10-04] MEDS: CHOLECALCIFEROL 1000 INTER.UNIT TAB PO SCH ×2 (07:36→19:56)
[2017-10-04] MEDS: CITALOPRAM 20 MG TAB PO SCH (07:36)
[2017-10-04] MEDS: TIOTROPIUM BROMIDE 5 PUFF/90 MCG INH INH SCH (07:36)
[2017-10-04] MEDS: GABAPENTIN 300 MG CAP PO SCH ×2 (07:37→19:56)
[2017-10-04] MEDS: FERROUS SULFATE 325 MG TAB PO SCH (07:37)
[2017-10-04] MEDS: CYANOCOBALAMIN 500 MCG TAB (VIT B-12) PO SCH (07:37)
[2017-10-04] MEDS: CALCITRIOL 0.25 MCG CAP PO SCH (07:38)
[2017-10-04] MEDS: NYSTATIN POWDER 15GM BTL EXT SCH ×3 (07:38→19:57)
[2017-10-04] MEDS: POTASSIUM CHLORIDE 10 MEQ TABCR PO SCH ×2 (07:38→19:54)
[2017-10-04] MEDS: INSULIN GLARGINE SOLOSTAR 100 UNITS/ML 3 ML PEN SC SCH (07:48)
[2017-10-04 07:54] VITALS: BP 144/73; PULSE 75; TEMP 36.8; O2SAT 94
[2017-10-04] MEDS: INSULIN ASPART 100 UNITS/ML 3 ML PEN SC SCH ×4 (08:21→21:00)
[2017-10-04 09:03] LABS: BASO % 0.3 %; BASO ABS # 0.02 K/uL (0-0.2); EOS % 0.6 %; EOS ABS # 0.04 K/uL (0-0.5); HEMATOCRIT 34.5 % (37-47); IG# 0.25 K/uL (0.00-0.02); LYMPH % 17.3 %; LYMPH ABS # 1.23 K/uL (1.2-3.4); MEAN CELL VOLUME 97.2 fL (80-100); MEAN CORPUSCULAR HGB CONC 31.9 g/dl (32-36); MEAN PLATELET VOLUME 10.7 fL (7.4-10.4); MONO % 9.6 %; MONO ABS # 0.68 K/uL (0.11-0.59); NEUT % 68.7 %; NEUT ABS # 4.89 K/uL (1.4-6.5); PLATELET COUNT 189 K/uL (130-400); RED CELL DISTRIBUTION WIDTH CV 16.1 % (11.5-14.5); RED CELL DISTRIBUTION WIDTH SD 57.1 fL (36.4-46.3); WHITE BLOOD COUNT 7.11 K/uL (4.8-10.8)
[2017-10-04 09:19] LABS: CALCIUM 8.5 mg/dl (8.5-10.1); CREATININE 0.82 mg/dl (0.60-1.20); POTASSIUM 3.8 mmol/L (3.5-5.1)
--- NOTE | 2017-10-04 10:40 | Progress Note ---
Progress Note Date of Service Oct 04, 2017. Progress Note ID Consult Dictated #[id number] A/P: 1. flu -Continue tamiflu, day 3/5 -No other infection identified, can stop abx from ID standpoint, thank you
--- NOTE | 2017-10-04 11:14 | INFECT. DISEASE CONSULTATION ---
DATE OF CONSULTATION: 10/04/2017 DATE OF CONSULTATION: 10/04/2017 HISTORY OF PRESENT ILLNESS: This is an 82-year-old female who was admitted to the hospital secondary to abdominal pain and diffuse myalgias with cough. Flu swab was negative; however, she was placed empirically on Tamiflu and is on day 3 of 5. Overall, she states she is feeling better. She does have a history of a recent hospital stay where she was found to have bilateral lower extremity DVTs and PE and she has been on anticoagulation for that. She was also placed on vancomycin and cefepime. She also is on prednisone. Her white blood cell count is normal at 7.1. UA is negative. Blood cultures are negative. A chest x-ray showed atelectasis. A CAT scan of the abdomen and pelvis was unremarkable. CAT scan of the chest again showed atelectasis. She currently is in droplet precautions. On my examination, she is awake and reading the paper and states she has no shortness of breath, cough or chest pain. Infectious diseases was consulted for questionable pneumonia. Her remaining review of systems is reviewed and unremarkable. PAST MEDICAL HISTORY: Significant for migraines, COPD on chronic steroids, respiratory failure, history of DVT with suspected PE on anticoagulation, hypertension, type 2 diabetes, hyperlipidemia, restless leg syndrome, hypothyroidism, depression, diastolic heart failure, diaphragmatic paralysis, GERD, history of thyroid cancer, anxiety and chronic kidney disease. FAMILY HISTORY: Noncontributory. SOCIAL HISTORY: Negative for alcohol use, drug use and tobacco use. ALLERGIES: SHE IS ALLERGIC TO ERYTHROMYCIN AND ADHESIVE TAPE, FLAGYL, POLYMYXIN B, TETRACYCLINE, MORPHINE, DILTIAZEM, REGLAN AND BACITRACIN. CURRENT MEDICATIONS: Include vancomycin, calcitriol, Celexa, vitamin B12, Lantus, Aldactone, Protonix, iron, Spiriva, prednisone, Synthroid, Neurontin, Nystatin, Zocor, Requip, vitamin D, potassium, Tamiflu, cefepime, Combivent, Ultram, Tylenol, Maalox, milk of magnesia, Fioricet, DuoNebs, Ativan. PHYSICAL EXAMINATION: VITAL SIGNS: She is afebrile, pulse 75, respiratory rate 16, blood pressure 144/73, oxygen saturation is 94% on 3 liters. GENERAL: She is awake, alert and oriented on my examination. She is in no acute distress. HEAD, EYES, EARS, NOSE, AND THROAT: Mucous membranes are dry. Extraocular muscles are intact. HEART: Regular. LUNGS: Clear with decreased breath sounds at the bases bilaterally. ABDOMEN: Soft, nontender, nondistended. There is no edema. SKIN: Without rash. LABORATORY STUDIES: CBC reveals a white blood cell count of 7.1, hemoglobin 11, platelets 189. Chemistry panel reveals a sodium of 139, potassium 3.8, chloride 105, bicarbonate 28, BUN 22, creatinine 0.8, glucose 122. UA is negative. Flu swab was negative. Blood cultures are no growth to date x2 sets. Her most recent chest x-ray was done this morning and shows persistent atelectasis. ASSESSMENT AND PLAN: Respiratory distress. I agree with empiric treatment for influenza. She is on day 3 of 5 of Tamiflu. With regards to her additional antibiotics it can be discontinued from an infectious diseases standpoint. Thank you for this consultation.
[2017-10-04 11:42] VITALS: BP 150/71; O2SAT 96
[2017-10-04 11:58] VITALS: BP 150/71; PULSE 84; TEMP 36.9; O2SAT 94
[2017-10-04] MEDS ORDERED: WARFARIN SOD 5 MG TAB PO SCH (16:00)
[2017-10-04 16:12] VITALS: BP 150/82; PULSE 79; TEMP 37.6; O2SAT 97
[2017-10-04 16:33] VITALS: Ht 157.5 cm; Wt 95.6 kg
--- NOTE | 2017-10-04 16:58 | PULMONARY CONSULTATION ---
DATE OF CONSULTATION: 10/04/2017 PULMONARY MEDICINE CONSULTATION REASON FOR CONSULTATION: Pulmonary evaluation/severe dyspnea. HISTORY OF PRESENT ILLNESS: An 82-year-old white female with complex medical history followed by Jaun See our physician senior care assistant in our pulmonary medicine clinic, and by Dr. Michael De Souza, her primary care physician. The patient was admitted on 09/22/2017 and has a history of bilateral lower extremity DVT and suspected pulmonary emboli along with chronic hypoxic respiratory failure on home oxygen and type 2 diabetes mellitus well as chronic diastolic heart failure and hypertension. The patient was last admitted and discharged on Lovenox/Coumadin on September 24 presented with several days of headache, right-sided pleuritic discomfort, stating that "my right lung does not work well." She has also had vague abdominal distention, myalgias and confusion. She lives with her daughter who works in our Emergency Room and has had multiple admissions to this facility. The patient was seen by Dr. Annemarie Mahoney from pulmonary medicine on 09/20/2017 because of right-sided pleuritic pain, generalized malaise and fatigue. She had dyspnea with minimal exertion and was felt to have right lower lobe atelectasis, diaphragmatic weakness, having undergone a diaphragmatic plication with Dr. 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 The patient has been on home oxygen at 2 liters, but it was increased to 5 liters during last admission. She was treated for cellulitis with Cipro for 2 weeks. She has undergone bronchoscopy on 06/29/2010, 01/25/2016, which grew out yeast in right middle lobe and again in June 2016 with yeast growing from the right lower lobe. She also had MRSA in November of 2014, growing from the right middle lobe. She has been treated for wound infection and chronic urinary tract infection. She underwent a right heart catheterization in March of 2007, which showed apparently normal pulmonary arterial right-sided ventricular and pulmonary systolic pressures. She has tolerated CPAP overnight. She as well has been seen by Dr. Khalil in consultation in March of 2017. He saw her postoperatively after her plication. CT scan in October 2016 showed a small right-sided pleural effusion with atelectasis and a 6 mm left lower lobe pulmonary nodule. There was a lingular infiltrate and vascular congestion at that time. Aa gradients were plotted out from September 2015 to March of 2017. Cardiac catheterization in April of 2007 showed no evidence for coronary artery disease and an echo in April of 2016 which showed type 1 diastolic dysfunction with normal LVEF, right ventricular systolic pressures were estimated at 30 mmHg by echocardiogram in November of 2016. Spirometry in July 2016 was essentially normal with mild elevation of residual volume. Mucous plugging was discovered on bronchoscopy in October 2016. She has been on prednisone on numerous antibiotics, in the interim. PHYSICAL EXAMINATION: GENERAL: Reveals a cushingoid white female, in no obvious respiratory distress but uncomfortable appearing. VITAL SIGNS: Temperature 36.9, pulse 84 and regular, respiratory rate 16, blood pressure 150/71, O2 sat 94% on current O2 supplementation. SKIN: Without lesion. HEENT: Atraumatic, normocephalic. Cushingoid faces. PERRLA. EOMI. Conjunctivae pink. Sclerae nonicteric. Fundi grade 1 changes. NECK: Neck veins are not distended at 45 degrees. No adenopathy. LUNGS: Decreased breath sounds in right base. No audible wheezes. CARDIAC: Sinus tachycardia, no S3 audible. ABDOMEN: Soft, protuberant and distended. EXTREMITIES: Trace pitting edema. No clubbing or peripheral cyanosis. NEUROLOGICAL: Intact. LABORATORY AND IMAGING DATA: Chest x-ray yesterday shows no significant change from 10/02/2017, showing cardiomegaly, small right pleural effusion, trace left pleural effusion, persistent basilar opacities with an inflammatory process not able to be ruled out. Abdominal pelvic CT done in the ER showed a small right pleural effusion and subcutaneous hematoma, but no other acute findings. CTA also done at the same time showed no evidence of pulmonary thromboembolic disease but the study was limited, small right pleural effusion with dependent subsegmental atelectasis, subsegmental consolidative changes involving the lingula and right lower lobe were also noted with ground-glass opacities seen. Review of previous bronchial washings grew out a yeast on 01/15/2017 with similar findings on November of 2016 and Staph aureus on 12/15/2016. Blood cultures in April of 2016 was positive propionibacterium acnes. Bronchial washings in January of 2016 grew out yeast. The most recent white count was 7100, H&H 11 and 34.5. ABG on 09/19/2017 - pH 7.43, pCO2 of 40, pO2 of 130 on 4.5 liters. BUN [address], [address] Nolasco saw the patient today, the patient is on day #3 of a 5-day temozolomide regimen and she suggested discontinuance of current antibiotic coverage. The patient's Serology for influenza A and B antigen was negative. OVERALL ASSESSMENT: An 82-year-old white female with complex medical history and symptoms of progressive dyspnea, both at rest and with exertion, abdominal distention and the whole plethora of comorbid symptomatology. The patient has a presumptive diagnosis of pulmonary emboli given her previous history and ultrasound, chronic deep venous thrombosis, though in 2016 there was no evidence of bilateral lower extremity deep venous thrombosis. The ventilation perfusion lung scan reviewed from March of 2017 was read as a low probability scan. Deep venous thrombosis study in December 2016 was negative for deep venous thrombosis. Video swallow done this past year showed no obvious evidence for aspiration. Will need to review serial x-rays and CAT scans, and try to determine the best approach for this patient. Will also review previous pulmonary function studies. It is not clear to me whether patient has a reversible element to her underlying cardiopulmonary symptoms.
[2017-10-04] MEDS: CALCIUM CARBONATE 1250MG TAB PO SCH (19:54)
[2017-10-04] MEDS: SIMVASTATIN 20 MG TAB PO SCH (19:54)
[2017-10-04] MEDS: ROPINIROLE HCL 0.25 MG TAB PO SCH (19:56)
[2017-10-04] MEDS: BOOST GLUCOSE CONTROL PO SCH (19:57)
[2017-10-04 20:00] VITALS: BP 152/79; PULSE 80; TEMP 37.5; O2SAT 97
[2017-10-04] MEDS ORDERED: BOOST VANILLA PO SCH (21:00)
--- NOTE | 2017-10-04 22:35 | Progress Note ---
Subjective Date of Service: Oct 04, 2017. Subjective Pt evaluation today including: conversation w/ patient, physical exam Patient reports breathing better. She reports she is at baseline Daughter is concerned and thinks a cpap will be better for her despite having a machine at home. Problem List Medical Problems: (1) Cervical strain Status: Acute (2) Fall Status: Acute (3) Fatigue Status: Acute (4) Head injury Status: Acute (5) Head injury Status: Acute (6) Hip pain Status: Acute (7) Hypocalcemia Status: Acute (8) Hypoxia Status: Acute (9) Hypoxia Status: Acute (10) Lower extremity edema Status: Acute (11) PNA (pneumonia) Status: Acute (12) Pneumonia Status: Acute (13) Reactive airway disease Status: Acute (14) Right flank pain Status: Acute (15) Sepsis Status: Acute (16) Sepsis Status: Acute (17) Syncope Status: Acute (18) Traumatic compression fracture of third thoracic vertebra Status: Acute (19) Weakness Status: Acute Review of Systems Constitutional: No fever, No chills Eyes: No worsening of vision, No eye pain ENT: No hearing loss Respiratory: + shortness of breath, No cough, No sputum Cardiac: No chest pain Abdomen: No pain Female : No dysuria Neurologic: No memory loss Heme: No abnormal bleeding/bruising Endo: No fatigue Skin: No rash, No itch All Other Systems: Reviewed and Negative Medications Current Inpatient Medications Medications (Trade) Dose Ordered Sig/Natasha Route Start Time Stop Time Status Last Admin Dose Admin Ioversol (Optiray 320) 100 ml UD PRN IV 10/02/17 13:30 10/06/17 13:29 Ioversol (Optiray 320) 100 ml UD PRN IV 10/02/17 13:30 10/06/17 13:29 Acetaminophen (Tylenol Tab) 650 mg Q4H PRN PO 10/02/17 16:45 11/01/17 16:44 Al Hydrox/Mg Hydrox/Simethicone (Maalox Max Susp) 15 ml Q4H PRN PO 10/02/17 16:45 11/01/17 16:44 Magnesium Hydroxide (Milk Of Magnesia Susp) 30 ml Q12H PRN PO 10/02/17 16:45 11/01/17 16:44 Ondansetron HCl (Zofran Inj) 4 mg Q6H PRN IV 10/02/17 16:45 11/01/17 16:44 Nitroglycerin (Nitrostat Tab) 0.4 mg UD PRN SL 10/02/17 16:45 11/01/17 16:44 Acetaminophen/ Butalbital/ Caffeine (Fioricet Tab) 1 tab Q4H PRN PO 10/02/17 16:45 11/01/17 16:44 10/03/17 08:52 1 TAB Calcitriol (Rocaltrol Cap) 0.25 mcg DAILY PO 10/03/17 09:00 11/02/17 08:59 10/04/17 07:38 0.25 MCG Citalopram Hydrobromide (celeXA TAB) 30 mg DAILY PO 10/03/17 09:00 11/02/17 08:59 10/04/17 07:36 30 MG Cyanocobalamin (Vitamin B-12 Tab) 1,000 mcg QAM PO 10/03/17 09:00 11/02/17 08:59 10/04/17 07:37 1,000 MCG Gabapentin (Neurontin Cap) 300 mg BID PO 10/02/17 21:00 11/01/17 20:59 10/04/17 19:56 300 MG Insulin Glargine (Lantus Solostar Pen) 20 units QAM SC 10/03/17 09:00 11/02/17 08:59 10/04/17 07:48 20 UNITS Albuterol/ Ipratropium (Combivent Respimat Inh) 1 puffs QID INH 10/02/17 17:00 11/01/17 16:59 10/04/17 19:53 1 PUFFS Albuterol/ Ipratropium (Duoneb) 3 ml Q4H PRN INH 10/02/17 16:45 11/01/17 16:44 Levothyroxine Sodium (Synthroid Tab) 100 mcg DAILYBB PO 10/03/17 06:00 11/02/17 06:59 10/04/17 06:19 100 MCG Lorazepam (Ativan Tab) 0.5 mg HS PRN PO 10/02/17 16:45 11/01/17 16:44 Midodrine (Proamatine Tab) 2.5 mg TID@0800,1200,1800 PO 10/02/17 18:00 11/01/17 17:59 10/04/17 17:05 2.5 MG Nystatin (Mycostatin Powder) 1 appln TID EXT 10/02/17 21:00 11/01/17 20:59 10/04/17 19:57 1 APPLN Ropinirole HCl (Requip Tab) 0.25 mg HS PO 10/02/17 21:00 11/01/17 20:59 10/04/17 19:56 0.25 MG Simvastatin (Zocor Tab) 20 mg HS PO 10/02/17 21:00 11/01/17 20:59 10/04/17 19:54 20 MG Spironolactone (Aldactone Tab) 25 mg BID17 PO 10/03/17 09:00 11/02/17 08:59 10/04/17 17:04 25 MG Tramadol HCl (Ultram Tab) 50 mg QID PO 10/02/17 17:00 11/01/17 16:59 10/04/17 19:53 50 MG Insulin Aspart (novoLOG ASPART) SLIDING SCALE G... ACHS SC 10/02/17 21:00 11/01/17 20:59 10/04/17 17:13 6 UNITS Calcium Carbonate (oS-Misael 500 TAB) 1,250 mg HS PO 10/02/17 21:00 11/01/17 20:59 10/04/17 19:54 1,250 MG Cholecalciferol (Vitamin D Tab) 2,000 inter.unit BID PO 10/02/17 21:00 11/01/17 20:59 10/04/17 19:56 2,000 INTER.UNIT Pantoprazole Sodium (Protonix Tab) 40 mg QAM PO 10/03/17 09:00 11/02/17 08:59 10/04/17 07:34 40 MG Ferrous Sulfate (Feosol Tab) 325 mg QAM PO 10/03/17 09:00 11/02/17 08:59 10/04/17 07:37 325 MG Potassium Chloride (Klor-Con M10) 20 meq BID PO 10/02/17 21:00 11/01/17 20:59 10/04/17 19:54 20 MEQ Tiotropium [place] (Spiriva Handihaler Inhaler) 1 puff QAM INH 10/03/17 09:00 11/02/17 08:59 10/04/17 07:36 1 PUFF Prednisone (PredniSONE TAB) 60 mg QAM PO 10/03/17 09:00 11/02/17 08:59 10/04/17 07:33 60 MG Glucose (Glucose 40% Gel) 15-30 GRAMS 15 GRAMS... UD PRN PO 10/02/17 18:30 11/01/17 18:29 Glucose (Glucose Chew Tab) 4-8 Tablets 4 Tabl... UD PRN PO 10/02/17 18:30 11/01/17 18:29 Dextrose (Dextrose 50% 50ML Syringe) 25-50ML OF 50% DW IV FOR... UD PRN IV 10/02/17 18:30 11/01/17 18:29 Glucagon (Glucagon Inj) 1 mg UD PRN SQ 10/02/17 18:30 11/01/17 18:29 Oseltamivir Phosphate (Tamiflu Susp) 30 mg BID PO 10/02/17 21:00 10/07/17 20:59 10/04/17 19:52 30 MG Miscellaneous Information (Order Awaiting Action) 1 ea QS N/A 10/03/17 00:00 11/02/17 00:00 Warfarin Sodium (Coumadin Tab) 5 mg DAILY@16 PO 10/04/17 16:00 11/03/17 15:59 10/04/17 17:03 5 MG Enteral Nutritional Formula (Boost Glucose Control) 1 can DAILY@1000,2100 PO 10/04/17 21:00 11/03/17 20:59 Objective Vital Signs Date Time Temp Pulse Resp B/P (MAP) Pulse Ox O2 Delivery O2 Flow Rate FiO2 10/04/17 20:00 97 Nasal Cannula 3.0 10/04/17 20:00 37.5 80 20 152/79 (103) 97 Nasal Cannula 3.0 80 10/04/17 16:12 37.6 79 22 150/82 (104) 97 Nasal Cannula 3.0 10/04/17 16:00 Nasal Cannula 10/04/17 12:00 Nasal Cannula 10/04/17 11:58 36.9 84 16 150/71 (97) 94 10/04/17 11:42 96 10/04/17 08:00 Nasal Cannula 10/04/17 07:54 36.8 75 16 144/73 (96) 94 10/04/17 04:00 Nasal Cannula 3.0 BiPAP 10/04/17 03:55 37.2 80 16 156/81 (106) 97 10/04/17 00:00 Nasal Cannula 3.0 BiPAP 10/03/17 23:57 73 96 3.0 10/03/17 23:55 37.0 83 18 141/82 (101) 95 Room Air Physical Exam Abdomen: + distended Comments: General Appearance:looks better, no longer ill appearing + obese Head: normocephalic, atraumatic, + pertinent finding (no tenderness over the mastoids b/l) Eyes: PERRL, sclerae normal ENT: + pertinent finding (MM dry, no lesions) Neck: supple (no meningismus, no rigidity ), no adenopathy, no JVD Respiratory/Chest: no respiratory distress, no accessory muscle use, + pertinent finding (no wheezes; good airation ) Cardiovascular: regular rate, rhythm, no gallop, no murmur, normal peripheral pulses Abdomen/GI: normal bowel sounds, non tender, soft, no organomegaly Back: normal inspection Extremities/Musculoskelatal: no pedal edema Neurologic/Psych: awake, no facial droop; strength 5/5 x 4 exts; DTRs 2+ b/l ) Skin: no rash Lymphatic: no adenopathy (no cervical lymphadenopathy ) Laboratory Results Last 24 Hours Test 10/04/17 06:02 10/04/17 06:49 10/04/17 11:29 10/04/17 16:36 White Blood Count 7.11 K/uL Red Blood Count 3.55 M/uL Hemoglobin 11.0 g/dL Hematocrit 34.5 % Mean Corpuscular Volume 97.2 fL Mean Corpuscular Hemoglobin 31.0 pg Mean Corpuscular Hemoglobin Concent 31.9 g/dl Platelet Count 189 K/uL Mean Platelet Volume 10.7 fL Neutrophils (%) (Auto) 68.7 % Lymphocytes (%) (Auto) 17.3 % Monocytes (%) (Auto) 9.6 % Eosinophils (%) (Auto) 0.6 % Basophils (%) (Auto) 0.3 % Neutrophils # (Auto) 4.89 K/uL Lymphocytes # (Auto) 1.23 K/uL Monocytes # (Auto) 0.68 K/uL Eosinophils # (Auto) 0.04 K/uL Basophils # (Auto) 0.02 K/uL RDW Standard Deviation 57.1 fL RDW Coefficient of Variation 16.1 % Immature Granulocyte % (Auto) 3.5 % Immature Granulocyte # (Auto) 0.25 K/uL Prothrombin Time 19.1 SECONDS Prothromb Time International Ratio 1.8 Sodium Level 139 mmol/L Potassium Level 3.8 mmol/L Chloride Level 105 mmol/L Carbon Dioxide Level 28 mmol/L Anion Gap 6.0 mmol/L Blood Urea Nitrogen 22 mg/dl Creatinine 0.82 mg/dl Est Creatinine Clear Calc Drug Dose 59.0 ml/min Estimated GFR () 78.3 Estimated GFR (Non- 67.6 BUN/Creatinine Ratio 26.7 Random Glucose 108 mg/dl Calcium Level 8.5 mg/dl Bedside Glucose 122 mg/dl 132 mg/dl 176 mg/dl Test 10/04/17 21:22 Bedside Glucose 136 mg/dl Assessment and Plan 82yo female with multiple medical problems including COPD, chronic hypoxic respiratory failure on home o2, recent hospital admission for b/l DVTs and suspected PEs, chronic diastolic CHF, prior h/o MRSA pneumonia - presenting with chills, altered mental status, worsening cough, and diffuse arthralgias/ myalgias. Although rapid flu is negative her symptomatology is suspicious for influenza. I cannot exclude a developing pneumonia in the right lung base. 1. probable early sepsis - suspect 2nd to clinical influenza u/a not suggestive of UTI. Follow blood/urine cultures. Patient started on antibiotics on admission. However, patient has not had a fever while in the hospital. ID consulted. Recommended to dc antibiotics and continue with tamiflu Supportive care - NC O2, inhalers/nebs prn, etc. 2. metabolic encephalopathy - 2nd to #1 above. Supportive care. Improved. will monitor 3. recent b/l DVTs - INR is subtherapeutic today; restart coumadin; daily INR. 4. COPD - not in exacerbation at this time. Defer on IV steroids; however, will give "stress-dose steroids" for #1 with prednisone 60mg daily. On prednisone 60 mg po daily She takes 32mg daily of prednisone per Dr. Khalil. 5. chronic hypoxic respiratory failure - multifactorial based on records. She is saturating well on home O2 amount. 6. T2DM - continue lantus + novolog; BSGs ac/hs. 7. orthostatic hypotension - continue midodrine. 8. chronic diastolic CHF - she appears mildly volume contracted today and not in exacerbation. 9. FEN - AHA/DM diet; NS hydration x 1 liter; lytes in AM. 10. DVT proph - on coumadin. 11. hypothyroidism - cont synthroid; most recent TSH earlier this month was normal. 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 13. abdominal pain per history - CT abd/pelvis without discrete pathology; u/a without UTI. No tenderness during my admission exam. Follow. 14. right sided chest pain unsure of cause. no fractures noted on exam. May be pleuritic from small effusion however, patient is tender on palpation. clinical history does not fit pleuritic chest pain. Continued [facility] stay due to: inadequate oral pain control Discharge planning: uncertain
[2017-10-04] MEDS ORDERED: VANCOMYCIN TROUGH ONE (23:30)
[2017-10-05] VITALS (8 sets, daily range): BP systolic 125–148; BP diastolic 53–80; PULSE 72–91; TEMP 36.6–37.3; O2SAT 94–97
[2017-10-05] MEDS: LEVOTHYROXINE 100 MCG TAB PO SCH (05:45)
[2017-10-05 06:50] LABS: INR 1.5 (0.9-1.1)
[2017-10-05 07:15] LABS: CREATININE 0.93 mg/dl (0.60-1.20)
[2017-10-05] MEDS: TRAMADOL HCL 50 MG TAB PO SCH ×4 (07:52→22:43)
[2017-10-05] MEDS: MIDODRINE 2.5 MG TAB PO SCH ×3 (07:52→17:09)
[2017-10-05] MEDS: IPRATROPIUM BROMIDE/ALBUTEROL respimat INH INH SCH ×4 (07:53→22:31)
[2017-10-05] MEDS: GABAPENTIN 300 MG CAP PO SCH ×2 (07:53→22:35)
[2017-10-05] MEDS: TIOTROPIUM BROMIDE 5 PUFF/90 MCG INH INH SCH (07:53)
[2017-10-05] MEDS: NYSTATIN POWDER 15GM BTL EXT SCH ×3 (07:53→22:44)
[2017-10-05] MEDS: CALCITRIOL 0.25 MCG CAP PO SCH (07:54)
[2017-10-05] MEDS: CITALOPRAM 20 MG TAB PO SCH (07:54)
[2017-10-05] MEDS: SPIRONOLACTONE 25 MG TAB PO SCH ×2 (07:54→17:08)
[2017-10-05] MEDS: FERROUS SULFATE 325 MG TAB PO SCH (07:55)
[2017-10-05] MEDS: CYANOCOBALAMIN 500 MCG TAB (VIT B-12) PO SCH (07:55)
[2017-10-05] MEDS: CHOLECALCIFEROL 1000 INTER.UNIT TAB PO SCH ×2 (07:56→22:35)
[2017-10-05] MEDS: OSELTAMIVIR PHOSPHATE SUSP 30 MG/5 ML UDP PO SCH ×2 (07:56→22:43)
[2017-10-05] MEDS: PANTOprazole SOD 40 MG TAB PO SCH (07:56)
[2017-10-05] MEDS: POTASSIUM CHLORIDE 10 MEQ TABCR PO SCH ×2 (07:56→22:34)
[2017-10-05] MEDS: INSULIN ASPART 100 UNITS/ML 3 ML PEN SC SCH ×4 (08:04→22:46)
[2017-10-05] MEDS: INSULIN GLARGINE SOLOSTAR 100 UNITS/ML 3 ML PEN SC SCH (08:06)
[2017-10-05] MEDS: BOOST GLUCOSE CONTROL PO SCH ×2 (10:03→22:43)
[2017-10-05] MEDS ORDERED: SODIUM CHLORIDE 0.9% 1000ML 1,000 ML IV SCH (14:59)
--- NOTE | 2017-10-05 16:11 | PULMONARY PROGRESS NOTE ---
DATE: 10/05/2017 SUBJECTIVE: The patient's evaluation is today including: Conversation with the patient, physical exam, review of lab data, serial chest x-rays and CAT scans and previous reports as well as discussion with the patient's daughter. Although, the patient feels somewhat better today, she still feels quite congested and does not feel that aspect of her presentation is improved. She has last undergone bronchoscopic intervention apparently this past December and had significant improvement with suctioning of copious secretions and mucous plugging on those occasions. OBJECTIVE: CURRENT VITAL SIGNS: Temperature 36.8, pulse 90 and regular, respiratory rate 24, blood pressure 148/80, and O2 sat 97% on 3 liters. SKIN: Warm and dry. HEENT: Atraumatic and normocephalic. PERRLA. LUNGS: Scattered rhonchi with decreased breath sounds at the right base. CARDIAC: Regular rhythm. No murmurs or gallops. ABDOMEN: Soft and protuberant. EXTREMITIES: With trace pedal edema. No clubbing or peripheral cyanosis. NEUROLOGIC: Intact. No lateralizing signs. Review of most recent CT scan of the chest on October 02 clearly shows a small right pleural effusion with dependent subsegmental atelectasis and consolidative subsegmental changes in the lingula and right lower lobe as well as ground-glass opacities in both lungs. When you looked back on previous CT scans and chest x-rays, these findings have been noted on multiple occasions. Ventilation/perfusion lung scan done in March 2017 was read as low probability scan, but significant heterogeneity was noted, suggesting obstructive physiology. She has had a previous history of deep venous thrombosis involving the deep veins of the calf in the past, but no confirmatory evidence of pulmonary thromboembolic disease. Again at this point in time, I would favor the patient undergo a bronchoscopic intervention tomorrow. We will hold any further anticoagulation as the patient's PT/INR was 1.5 today and I believe we can safely proceed with this procedure tomorrow. BREANA
--- NOTE | 2017-10-05 17:11 | Progress Note ---
Subjective Date of Service: Oct 05, 2017. Subjective Pt evaluation today including: conversation w/ patient, physical exam Patient feels more SHORT of breath today. She reports having worsening in her breathing. patient also reports that her right side of her chest is worse. She reports that she no longer has a cough. Problem List Medical Problems: (1) Cervical strain Status: Acute (2) Fall Status: Acute (3) Fatigue Status: Acute (4) Head injury Status: Acute (5) Head injury Status: Acute (6) Hip pain Status: Acute (7) Hypocalcemia Status: Acute (8) Hypoxia Status: Acute (9) Hypoxia Status: Acute (10) Lower extremity edema Status: Acute (11) PNA (pneumonia) Status: Acute (12) Pneumonia Status: Acute (13) Reactive airway disease Status: Acute (14) Right flank pain Status: Acute (15) Sepsis Status: Acute (16) Sepsis Status: Acute (17) Syncope Status: Acute (18) Traumatic compression fracture of third thoracic vertebra Status: Acute (19) Weakness Status: Acute Review of Systems Constitutional: No fever, No chills Eyes: No worsening of vision, No eye pain ENT: No hearing loss, No unusual epistaxis Cardiac: No chest pain, No orthopnea Abdomen: No pain, No nausea Neurologic: No memory loss, No paralysis Psychiatric: No depression symptoms, No anhedonism Skin: + rash, No itch All Other Systems: Reviewed and Negative Medications Current Inpatient Medications Medications (Trade) Dose Ordered Sig/Natasha Route Start Time Stop Time Status Last Admin Dose Admin Ioversol (Optiray 320) 100 ml UD PRN IV 10/02/17 13:30 10/06/17 13:29 Ioversol (Optiray 320) 100 ml UD PRN IV 10/02/17 13:30 10/06/17 13:29 Acetaminophen (Tylenol Tab) 650 mg Q4H PRN PO 10/02/17 16:45 11/01/17 16:44 Al Hydrox/Mg Hydrox/Simethicone (Maalox Max Susp) 15 ml Q4H PRN PO 10/02/17 16:45 11/01/17 16:44 Magnesium Hydroxide (Milk Of Magnesia Susp) 30 ml Q12H PRN PO 10/02/17 16:45 11/01/17 16:44 Ondansetron HCl (Zofran Inj) 4 mg Q6H PRN IV 10/02/17 16:45 11/01/17 16:44 Nitroglycerin (Nitrostat Tab) 0.4 mg UD PRN SL 10/02/17 16:45 11/01/17 16:44 Acetaminophen/ Butalbital/ Caffeine (Fioricet Tab) 1 tab Q4H PRN PO 10/02/17 16:45 11/01/17 16:44 10/03/17 08:52 1 TAB Calcitriol (Rocaltrol Cap) 0.25 mcg DAILY PO 10/03/17 09:00 11/02/17 08:59 10/05/17 07:54 0.25 MCG Citalopram Hydrobromide (celeXA TAB) 30 mg DAILY PO 10/03/17 09:00 11/02/17 08:59 10/05/17 07:54 30 MG Cyanocobalamin (Vitamin B-12 Tab) 1,000 mcg QAM PO 10/03/17 09:00 11/02/17 08:59 10/05/17 07:55 1,000 MCG Gabapentin (Neurontin Cap) 300 mg BID PO 10/02/17 21:00 11/01/17 20:59 10/05/17 07:53 300 MG Insulin Glargine (Lantus Solostar Pen) 20 units QAM SC 10/03/17 09:00 11/02/17 08:59 10/05/17 08:06 20 UNITS Albuterol/ Ipratropium (Combivent Respimat Inh) 1 puffs QID INH 10/02/17 17:00 11/01/17 16:59 10/05/17 17:07 1 PUFFS Albuterol/ Ipratropium (Duoneb) 3 ml Q4H PRN INH 10/02/17 16:45 11/01/17 16:44 Levothyroxine Sodium (Synthroid Tab) 100 mcg DAILYBB PO 10/03/17 06:00 11/02/17 06:59 10/05/17 05:45 100 MCG Lorazepam (Ativan Tab) 0.5 mg HS PRN PO 10/02/17 16:45 11/01/17 16:44 Midodrine (Proamatine Tab) 2.5 mg TID@0800,1200,1800 PO 10/02/17 18:00 11/01/17 17:59 10/05/17 17:09 2.5 MG Nystatin (Mycostatin Powder) 1 appln TID EXT 10/02/17 21:00 11/01/17 20:59 10/05/17 14:04 1 APPLN Ropinirole HCl (Requip Tab) 0.25 mg HS PO 10/02/17 21:00 11/01/17 20:59 10/04/17 19:56 0.25 MG Simvastatin (Zocor Tab) 20 mg HS PO 10/02/17 21:00 11/01/17 20:59 10/04/17 19:54 20 MG Spironolactone (Aldactone Tab) 25 mg BID17 PO 10/03/17 09:00 11/02/17 08:59 10/05/17 17:08 25 MG Tramadol HCl (Ultram Tab) 50 mg QID PO 10/02/17 17:00 11/01/17 16:59 10/05/17 17:07 50 MG Insulin Aspart (novoLOG ASPART) SLIDING SCALE G... ACHS SC 10/02/17 21:00 11/01/17 20:59 10/05/17 17:14 5 UNITS Calcium Carbonate (oS-Misael 500 TAB) 1,250 mg HS PO 10/02/17 21:00 11/01/17 20:59 10/04/17 19:54 1,250 MG Cholecalciferol (Vitamin D Tab) 2,000 inter.unit BID PO 10/02/17 21:00 11/01/17 20:59 10/05/17 07:56 2,000 INTER.UNIT Pantoprazole Sodium (Protonix Tab) 40 mg QAM PO 10/03/17 09:00 11/02/17 08:59 10/05/17 07:56 40 MG Ferrous Sulfate (Feosol Tab) 325 mg QAM PO 10/03/17 09:00 11/02/17 08:59 10/05/17 07:55 325 MG Potassium Chloride (Klor-Con M10) 20 meq BID PO 10/02/17 21:00 11/01/17 20:59 10/05/17 07:56 20 MEQ Tiotropium [place] (Spiriva Handihaler Inhaler) 1 puff QAM INH 10/03/17 09:00 11/02/17 08:59 10/05/17 07:53 1 PUFF Prednisone (PredniSONE TAB) 60 mg QAM PO 10/03/17 09:00 11/02/17 08:59 10/05/17 07:53 60 MG Glucose (Glucose 40% Gel) 15-30 GRAMS 15 GRAMS... UD PRN PO 10/02/17 18:30 11/01/17 18:29 Glucose (Glucose Chew Tab) 4-8 Tablets 4 Tabl... UD PRN PO 10/02/17 18:30 11/01/17 18:29 Dextrose (Dextrose 50% 50ML Syringe) 25-50ML OF 50% DW IV FOR... UD PRN IV 10/02/17 18:30 11/01/17 18:29 Glucagon (Glucagon Inj) 1 mg UD PRN SQ 10/02/17 18:30 11/01/17 18:29 Oseltamivir Phosphate (Tamiflu Susp) 30 mg BID PO 10/02/17 21:00 10/07/17 20:59 10/05/17 07:56 30 MG Miscellaneous Information (Order Awaiting Action) 1 ea QS N/A 10/03/17 00:00 11/02/17 00:00 Enteral Nutritional Formula (Boost Glucose Control) 1 can DAILY@1000,2100 PO 10/04/17 21:00 11/03/17 20:59 10/05/17 10:03 1 CAN Sodium Chloride 1,000 ml @ 15 mls/hr Q24H IV 10/05/17 14:59 10/06/17 14:58 Objective Vital Signs Date Time Temp Pulse Resp B/P (MAP) Pulse Ox O2 Delivery O2 Flow Rate FiO2 10/05/17 15:57 36.7 85 16 125/75 (92) 97 Nasal Cannula 10/05/17 12:00 Nasal Cannula 3.0 10/05/17 10:38 36.8 90 24 148/80 (102) 97 Nasal Cannula 4.0 10/05/17 08:00 Nasal Cannula 3.0 10/05/17 07:45 36.6 84 18 145/74 (97) 95 Nasal Cannula 3.0 10/05/17 04:00 Nasal Cannula 3.0 10/05/17 03:21 36.7 84 18 147/74 (98) 97 3.0 10/05/17 00:12 37.3 72 16 145/76 (99) 96 3.0 10/05/17 00:00 Nasal Cannula 3.0 10/04/17 20:00 97 Nasal Cannula 3.0 10/04/17 20:00 37.5 80 20 152/79 (103) 97 Nasal Cannula 3.0 80 Physical Exam Comments: General Appearance:looks better, no longer ill appearing + obese Head: normocephalic, atraumatic, + pertinent finding (no tenderness over the mastoids b/l) Eyes: PERRL, sclerae normal ENT: + pertinent finding (MM dry, no lesions) Neck: supple (no meningismus, no rigidity ), no adenopathy, no JVD Respiratory/Chest: no respiratory distress, no accessory muscle use, + pertinent finding (no wheezes; good airation ) Cardiovascular: regular rate, rhythm, no gallop, no murmur, normal peripheral pulses Abdomen/GI: normal bowel sounds, non tender, soft, no organomegaly Back: normal inspection Extremities/Musculoskelatal: no pedal edema Neurologic/Psych: awake, no facial droop; strength 5/5 x 4 exts; DTRs 2+ b/l ) Skin: erythema noted on multiple sin folds on her right side of her chest. Lymphatic: no adenopathy (no cervical lymphadenopathy ) Laboratory Results Last 24 Hours Test 10/04/17 21:22 10/05/17 06:22 10/05/17 06:55 10/05/17 10:53 Bedside Glucose 136 mg/dl 99 mg/dl 131 mg/dl Prothrombin Time 15.8 SECONDS Prothromb Time International Ratio 1.5 Creatinine 0.93 mg/dl Est Creatinine Clear Calc Drug Dose 52.1 ml/min Estimated GFR () 67.3 Estimated GFR (Non- 58.0 Test 10/05/17 16:06 Bedside Glucose 250 mg/dl Assessment and Plan 82yo female with multiple medical problems including COPD, chronic hypoxic respiratory failure on home o2, recent hospital admission for b/l DVTs and suspected PEs, chronic diastolic CHF, prior h/o MRSA pneumonia - presenting with chills, altered mental status, worsening cough, and diffuse arthralgias/ myalgias. Although rapid flu is negative her symptomatology is suspicious for influenza. I cannot exclude a developing pneumonia in the right lung base. 1. probable early sepsis - suspect 2nd to clinical influenza u/a not suggestive of UTI. Follow blood/urine cultures. Patient started on antibiotics on admission. However, patient has not had a fever while in the hospital. ID consulted. Pulmonary also consulted. May obtain a bronch on Monday Recommended to dc antibiotics and continue with tamiflu Supportive care - [place] O2, inhalers/nebs prn, etc. 2. metabolic encephalopathy - 2nd to #1 above. Supportive care. resolved 3. severe candidal intertrigo will give fluconazole 150 mg PO weekly starting tomorrow in AM likely cause of pain. 3. recent b/l DVTs - INR remains subtherapeutic today; restarted coumadin; daily INR. 4. COPD - not in exacerbation at this time. Defer on IV steroids; however, will give "stress-dose steroids" for #1 with prednisone 60mg daily. On prednisone 60 mg po daily She takes 32mg daily of prednisone per Dr. Khalil. 5. chronic hypoxic respiratory failure - multifactorial based on records. She is saturating well on home O2 amount. 6. T2DM - continue lantus + novolog; BSGs ac/hs. 7. orthostatic hypotension - continue midodrine. 8. chronic diastolic CHF - she appears mildly volume contracted today and not in exacerbation. 9. FEN - AHA/DM diet; NS hydration x 1 liter; lytes in AM. 10. DVT proph - on coumadin. 11. hypothyroidism - cont synthroid; most recent TSH earlier this month was normal. 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 13. abdominal pain per history - CT abd/pelvis without discrete pathology; u/a without UTI. No tenderness during my admission exam. Follow. Continued [facility] stay due to: inadequate oral pain control Discharge planning: uncertain
[2017-10-05] MEDS ORDERED: FLUCONAZOLE 50 MG TAB PO ONE (21:45)
[2017-10-05] MEDS: CALCIUM CARBONATE 1250MG TAB PO SCH (22:34)
[2017-10-05] MEDS: SIMVASTATIN 20 MG TAB PO SCH (22:36)
[2017-10-05] MEDS: ROPINIROLE HCL 0.25 MG TAB PO SCH (22:37)
[2017-10-06 03:11] VITALS: BP 155/75; PULSE 73; TEMP 36.9; O2SAT 97
[2017-10-06 05:42] LABS: INR 1.9 (0.9-1.1)
[2017-10-06 06:06] LABS: CREATININE 0.67 mg/dl (0.60-1.20)
[2017-10-06] MEDS: LEVOTHYROXINE 100 MCG TAB PO SCH (06:13)
--- NOTE | 2017-10-06 07:31 | History & Physical Bridge Note ---
H&P Re-Evaluation Bridge Note: I have examined the patient, reviewed the History & Physical and in the interval since the performance of the History & Physical I have noted the following changes of clinical significance: No changes noted
--- NOTE | 2017-10-06 07:33 | Pre Sedation Assessment ---
Pre Sedation Assessment General Date of Sedation: Oct 06, 2017. Vital Signs Past 12 Hours Date Time Temp Pulse Resp B/P (MAP) Pulse Ox O2 Delivery O2 Flow Rate FiO2 10/06/17 04:00 Nasal Cannula 3.0 10/06/17 03:11 36.9 73 21 155/75 (101) 97 Nasal Cannula 1.0 10/05/17 23:59 Nasal Cannula 3.0 10/05/17 23:04 36.8 75 20 147/74 (98) 97 Nasal Cannula 1.0 10/05/17 20:20 37.2 74 16 146/53 (84) 97 Nasal Cannula 10/05/17 20:00 Nasal Cannula 3.0 Pre-Sedation Airway Assessment Smoking Status: Never Smoker Hx of Sleep Apnea: Yes Oral Cavity: Dentures Mallampati Classification: Class III ASA Classification: Class III Procedure Planning Contraindications for Sedation: None Current Medications Reviewed: Yes Notes The planned sedation has been discussed with the patient. Informed Consent was obtained. I have identified the patient, determined the appropriateness of sedation and have assessed the patient immediately prior to the procedure. All medicine(s) and interventions are by my order.
[2017-10-06 07:38] VITALS: BP 146/70; PULSE 75; TEMP 36.5; O2SAT 99
[2017-10-06] MEDS ORDERED: NURSING VERBAL MED ORDER ONE (08:00)
--- NOTE | 2017-10-06 08:34 | PULMONARY PROGRESS NOTE ---
DATE: 10/06/2017 SUBJECTIVE: The patient was informed this morning that we had to cancel her bronchoscopy because her PT/INR was 1.9 (yesterday, it was 1.5), even though the Coumadin has been held. We will schedule her for Monday as I believe the patient will benefit from bronchoalveolar lavage, but will hold Coumadin for the weekend and if INR remains greater than 1.5 on Monday, then I would administer 2.5 mg p.o. of vitamin K and check the protime on Monday.
[2017-10-06] MEDS: NYSTATIN POWDER 15GM BTL EXT SCH ×2 (09:12→14:05)
[2017-10-06] MEDS: INSULIN GLARGINE SOLOSTAR 100 UNITS/ML 3 ML PEN SC SCH (09:15)
[2017-10-06] MEDS: OSELTAMIVIR PHOSPHATE SUSP 30 MG/5 ML UDP PO SCH (09:15)
[2017-10-06] MEDS: CALCITRIOL 0.25 MCG CAP PO SCH (09:33)
[2017-10-06] MEDS: CYANOCOBALAMIN 500 MCG TAB (VIT B-12) PO SCH (09:33)
[2017-10-06] MEDS: TRAMADOL HCL 50 MG TAB PO SCH ×3 (09:33→17:39)
[2017-10-06] MEDS: PANTOprazole SOD 40 MG TAB PO SCH (09:34)
[2017-10-06] MEDS: POTASSIUM CHLORIDE 10 MEQ TABCR PO SCH (09:34)
[2017-10-06] MEDS: CITALOPRAM 20 MG TAB PO SCH (09:34)
[2017-10-06] MEDS: FERROUS SULFATE 325 MG TAB PO SCH (09:34)
[2017-10-06] MEDS: CHOLECALCIFEROL 1000 INTER.UNIT TAB PO SCH (09:34)
[2017-10-06] MEDS: GABAPENTIN 300 MG CAP PO SCH (09:34)
[2017-10-06] MEDS: IPRATROPIUM BROMIDE/ALBUTEROL respimat INH INH SCH ×3 (09:35→17:34)
[2017-10-06] MEDS: MIDODRINE 2.5 MG TAB PO SCH ×3 (09:35→17:40)
[2017-10-06] MEDS: SPIRONOLACTONE 25 MG TAB PO SCH ×2 (09:36→17:34)
[2017-10-06] MEDS: TIOTROPIUM BROMIDE 5 PUFF/90 MCG INH INH SCH (09:36)
[2017-10-06] MEDS: INSULIN ASPART 100 UNITS/ML 3 ML PEN SC SCH ×4 (10:13→21:33)
[2017-10-06] MEDS: BOOST GLUCOSE CONTROL PO SCH ×2 (10:24→21:23)
[2017-10-06 11:50] VITALS: BP 106/66; PULSE 81; TEMP 37; O2SAT 99
[2017-10-06 15:53] VITALS: BP 144/72; PULSE 75; TEMP 37.1; O2SAT 96
--- NOTE | 2017-10-06 16:01 | Progress Note ---
Subjective Date of Service: Oct 06, 2017. Subjective Pt evaluation today including: conversation w/ patient Patient feels slightly improved today as her shortness of breath has decreased. She reports having worsening in her breathing. Patient also reports that her right side of her chest is the same. Problem List Medical Problems: (1) Cervical strain Status: Acute (2) Fall Status: Acute (3) Fatigue Status: Acute (4) Head injury Status: Acute (5) Head injury Status: Acute (6) Hip pain Status: Acute (7) Hypocalcemia Status: Acute (8) Hypoxia Status: Acute (9) Hypoxia Status: Acute (10) Lower extremity edema Status: Acute (11) PNA (pneumonia) Status: Acute (12) Pneumonia Status: Acute (13) Reactive airway disease Status: Acute (14) Right flank pain Status: Acute (15) Sepsis Status: Acute (16) Sepsis Status: Acute (17) Syncope Status: Acute (18) Traumatic compression fracture of third thoracic vertebra Status: Acute (19) Weakness Status: Acute Review of Systems Constitutional: No fever, No chills Eyes: No worsening of vision, No eye pain Respiratory: No cough, No sputum Cardiac: No chest pain, No orthopnea Abdomen: No pain, No nausea Neurologic: No memory loss, No paralysis Psychiatric: No depression symptoms, No anhedonism All Other Systems: Reviewed and Negative Medications Current Inpatient Medications Medications (Trade) Dose Ordered Sig/Natasha Route Start Time Stop Time Status Last Admin Dose Admin Acetaminophen (Tylenol Tab) 650 mg Q4H PRN PO 10/02/17 16:45 11/01/17 16:44 Al Hydrox/Mg Hydrox/Simethicone (Maalox Max Susp) 15 ml Q4H PRN PO 10/02/17 16:45 11/01/17 16:44 Magnesium Hydroxide (Milk Of Magnesia Susp) 30 ml Q12H PRN PO 10/02/17 16:45 11/01/17 16:44 Ondansetron HCl (Zofran Inj) 4 mg Q6H PRN IV 10/02/17 16:45 11/01/17 16:44 Nitroglycerin (Nitrostat Tab) 0.4 mg UD PRN SL 10/02/17 16:45 11/01/17 16:44 Acetaminophen/ Butalbital/ Caffeine (Fioricet Tab) 1 tab Q4H PRN PO 10/02/17 16:45 11/01/17 16:44 10/03/17 08:52 1 TAB Calcitriol (Rocaltrol Cap) 0.25 mcg DAILY PO 10/03/17 09:00 11/02/17 08:59 10/06/17 09:33 0.25 MCG Citalopram Hydrobromide (celeXA TAB) 30 mg DAILY PO 10/03/17 09:00 11/02/17 08:59 10/06/17 09:34 30 MG Cyanocobalamin (Vitamin B-12 Tab) 1,000 mcg QAM PO 10/03/17 09:00 11/02/17 08:59 10/06/17 09:33 1,000 MCG Gabapentin (Neurontin Cap) 300 mg BID PO 10/02/17 21:00 11/01/17 20:59 10/06/17 09:34 300 MG Insulin Glargine (Lantus Solostar Pen) 20 units QAM SC 10/03/17 09:00 11/02/17 08:59 10/06/17 09:15 20 UNITS Albuterol/ Ipratropium (Combivent Respimat Inh) 1 puffs QID INH 10/02/17 17:00 11/01/17 16:59 10/06/17 17:34 1 PUFFS Albuterol/ Ipratropium (Duoneb) 3 ml Q4H PRN INH 10/02/17 16:45 11/01/17 16:44 Levothyroxine Sodium (Synthroid Tab) 100 mcg DAILYBB PO 10/03/17 06:00 11/02/17 06:59 10/06/17 06:13 100 MCG Lorazepam (Ativan Tab) 0.5 mg HS PRN PO 10/02/17 16:45 11/01/17 16:44 Midodrine (Proamatine Tab) 2.5 mg TID@0800,1200,1800 PO 10/02/17 18:00 11/01/17 17:59 10/06/17 17:40 2.5 MG Nystatin (Mycostatin Powder) 1 appln TID EXT 10/02/17 21:00 11/01/17 20:59 10/06/17 14:05 1 APPLN Ropinirole HCl (Requip Tab) 0.25 mg HS PO 10/02/17 21:00 11/01/17 20:59 10/06/17 21:25 0.25 MG Simvastatin (Zocor Tab) 20 mg HS PO 10/02/17 21:00 11/01/17 20:59 10/06/17 21:24 20 MG Spironolactone (Aldactone Tab) 25 mg BID17 PO 10/03/17 09:00 11/02/17 08:59 10/06/17 17:34 25 MG Tramadol HCl (Ultram Tab) 50 mg QID PO 10/02/17 17:00 11/01/17 16:59 10/06/17 17:39 50 MG Insulin Aspart (novoLOG ASPART) SLIDING SCALE G... ACHS SC 10/02/17 21:00 11/01/17 20:59 10/06/17 21:33 3 UNITS Calcium Carbonate (oS-Misael 500 TAB) 1,250 mg HS PO 10/02/17 21:00 11/01/17 20:59 10/06/17 21:24 1,250 MG Cholecalciferol (Vitamin D Tab) 2,000 inter.unit BID PO 10/02/17 21:00 11/01/17 20:59 10/06/17 09:34 2,000 INTER.UNIT Pantoprazole Sodium (Protonix Tab) 40 mg QAM PO 10/03/17 09:00 11/02/17 08:59 10/06/17 09:34 40 MG Ferrous Sulfate (Feosol Tab) 325 mg QAM PO 10/03/17 09:00 11/02/17 08:59 10/06/17 09:34 325 MG Potassium Chloride (Klor-Con M10) 20 meq BID PO 10/02/17 21:00 11/01/17 20:59 10/06/17 09:34 20 MEQ Tiotropium [place] (Spiriva Handihaler Inhaler) 1 puff QAM INH 10/03/17 09:00 11/02/17 08:59 10/06/17 09:36 1 PUFF Prednisone (PredniSONE TAB) 60 mg QAM PO 10/03/17 09:00 11/02/17 08:59 10/06/17 09:35 60 MG Glucose (Glucose 40% Gel) 15-30 GRAMS 15 GRAMS... UD PRN PO 10/02/17 18:30 11/01/17 18:29 Glucose (Glucose Chew Tab) 4-8 Tablets 4 Tabl... UD PRN PO 10/02/17 18:30 11/01/17 18:29 Dextrose (Dextrose 50% 50ML Syringe) 25-50ML OF 50% DW IV FOR... UD PRN IV 10/02/17 18:30 11/01/17 18:29 Glucagon (Glucagon Inj) 1 mg UD PRN SQ 10/02/17 18:30 11/01/17 18:29 Oseltamivir Phosphate (Tamiflu Susp) 30 mg BID PO 10/02/17 21:00 10/07/17 20:59 10/06/17 09:15 30 MG Miscellaneous Information (Order Awaiting Action) 1 ea QS N/A 10/03/17 00:00 11/02/17 00:00 Enteral Nutritional Formula (Boost Glucose Control) 1 can DAILY@1000,2100 PO 10/04/17 21:00 11/03/17 20:59 10/06/17 21:23 1 CAN Miscellaneous Information (Pending Order) 1 ea Q24H N/A 10/06/17 08:15 10/09/17 00:00 10/06/17 09:12 1 EA Objective Vital Signs Date Time Temp Pulse Resp B/P (MAP) Pulse Ox O2 Delivery O2 Flow Rate FiO2 10/06/17 15:53 37.1 75 18 144/72 (96) 96 Nasal Cannula 4.0 10/06/17 12:00 Nasal Cannula 3.0 10/06/17 11:50 37.0 81 18 106/66 (79) 99 10/06/17 08:00 Nasal Cannula 3.0 10/06/17 07:38 36.5 75 20 146/70 (95) 99 Nasal Cannula 4.0 10/06/17 04:00 Nasal Cannula 3.0 10/06/17 03:11 36.9 73 21 155/75 (101) 97 Nasal Cannula 1.0 10/05/17 23:59 Nasal Cannula 3.0 10/05/17 23:04 36.8 75 20 147/74 (98) 97 Nasal Cannula 1.0 10/05/17 20:20 37.2 74 16 146/53 (84) 97 Nasal Cannula 10/05/17 20:00 Nasal Cannula 3.0 Physical Exam Comments: General Appearance:looks better, no longer ill appearing + obese Head: normocephalic, atraumatic, + pertinent finding (no tenderness over the mastoids b/l) Eyes: PERRL, sclerae normal ENT: + pertinent finding (MM dry, no lesions) Neck: supple (no meningismus, no rigidity ), no adenopathy, no JVD Respiratory/Chest: no respiratory distress, no accessory muscle use, + pertinent finding (no wheezes; good airation ) Cardiovascular: regular rate, rhythm, no gallop, no murmur, normal peripheral pulses Abdomen/GI: normal bowel sounds, non tender, soft, no organomegaly Back: normal inspection Extremities/Musculoskelatal: no pedal edema Neurologic/Psych: awake, no facial droop; strength 5/5 x 4 exts; DTRs 2+ b/l ) Skin: erythema noted on multiple sin folds on her right side of her chest. Lymphatic: no adenopathy (no cervical lymphadenopathy ) Laboratory Results Last 24 Hours Test 10/05/17 16:06 10/05/17 20:33 10/06/17 05:12 10/06/17 06:45 Bedside Glucose 250 mg/dl 233 mg/dl 125 mg/dl Prothrombin Time 19.2 SECONDS Prothromb Time International Ratio 1.9 Creatinine 0.67 mg/dl Est Creatinine Clear Calc Drug Dose 72.3 ml/min Estimated GFR () 96.2 Estimated GFR (Non- 83.0 Test 10/06/17 11:24 Bedside Glucose 118 mg/dl Assessment and Plan 82yo female with multiple medical problems including COPD, chronic hypoxic respiratory failure on home o2, recent hospital admission for b/l DVTs and suspected PEs, chronic diastolic CHF, prior h/o MRSA pneumonia - presenting with chills, altered mental status, worsening cough, and diffuse arthralgias/ myalgias. Although rapid flu is negative her symptomatology is suspicious for influenza. I cannot exclude a developing pneumonia in the right lung base. 1. probable early sepsis - suspect 2nd to clinical influenza u/a not suggestive of UTI. Nosignificant change today. Follow blood/urine cultures. Patient started on antibiotics on admission. However, patient has not had a fever while in the hospital. ID consulted. Pulmonary also consulted. May obtain a bronch on Monday ill hold coumadin for trach. Recommended to dc antibiotics and continue with tamiflu Supportive care - [place] O2, inhalers/nebs prn, etc. 2. metabolic encephalopathy - 2nd to #1 above. Supportive care. resolved 3. severe candidal intertrigo fluconazole 150 mg PO weekly monday (today is first dose) likely cause of pain. 3. recent b/l DVTs - INR remains subtherapeutic today; will hold for bronch 4. COPD - Defer on IV steroids; however, will give "stress-dose steroids" for # 1 with prednisone 60mg daily. On prednisone 60 mg po daily She takes 32mg daily of prednisone per Dr. Khalil. will have bronch on monday 5. chronic hypoxic respiratory failure - multifactorial based on records. She is saturating well on home O2 amount. 6. T2DM - continue lantus + novolog; BSGs ac/hs. 7. orthostatic hypotension - continue midodrine. 8. chronic diastolic CHF - she appears mildly volume contracted today and not in exacerbation. 9. FEN - AHA/DM diet; NS hydration x 1 liter; lytes in AM. 10. DVT proph - on coumadin. 11. hypothyroidism - cont synthroid; most recent TSH earlier this month was normal. 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 13. abdominal pain per history - CT abd/pelvis without discrete pathology; u/a without UTI. No tenderness during my admission exam. Follow. Continued [facility] stay due to: inadequate oral pain control Discharge planning: uncertain
[2017-10-06 19:00] VITALS: BP 132/81; PULSE 78; TEMP 36.9; O2SAT 96
[2017-10-06] MEDS: SIMVASTATIN 20 MG TAB PO SCH (21:24)
[2017-10-06] MEDS: CALCIUM CARBONATE 1250MG TAB PO SCH (21:24)
[2017-10-06] MEDS: ROPINIROLE HCL 0.25 MG TAB PO SCH (21:25)
[2017-10-06 23:31] VITALS: BP 153/78; PULSE 72; TEMP 36.9; O2SAT 97
[2017-10-07] VITALS (7 sets, daily range): BP systolic 95–131; BP diastolic 57–73; PULSE 67–82; TEMP 36.7–36.8; O2SAT 92–98
[2017-10-07] MEDS: TRAMADOL HCL 50 MG TAB PO SCH ×4 (03:27→20:22)
[2017-10-07] MEDS: LEVOTHYROXINE 100 MCG TAB PO SCH (06:19)
[2017-10-07] MEDS: IPRATROPIUM BROMIDE/ALBUTEROL respimat INH INH SCH ×4 (07:57→19:17)
[2017-10-07] MEDS: NYSTATIN POWDER 15GM BTL EXT SCH ×3 (07:57→19:17)
[2017-10-07] MEDS: TIOTROPIUM BROMIDE 5 PUFF/90 MCG INH INH SCH (07:58)
[2017-10-07] MEDS: CITALOPRAM 20 MG TAB PO SCH (08:00)
[2017-10-07] MEDS: FERROUS SULFATE 325 MG TAB PO SCH (08:00)
[2017-10-07] MEDS: CYANOCOBALAMIN 500 MCG TAB (VIT B-12) PO SCH (08:00)
[2017-10-07] MEDS: GABAPENTIN 300 MG CAP PO SCH ×2 (08:01→19:19)
[2017-10-07] MEDS: CHOLECALCIFEROL 1000 INTER.UNIT TAB PO SCH ×2 (08:01→19:19)
[2017-10-07] MEDS: POTASSIUM CHLORIDE 10 MEQ TABCR PO SCH ×2 (08:02→19:20)
[2017-10-07] MEDS: MIDODRINE 2.5 MG TAB PO SCH ×5 (08:02→20:22)
[2017-10-07] MEDS: PANTOprazole SOD 40 MG TAB PO SCH (08:03)
[2017-10-07] MEDS: CALCITRIOL 0.25 MCG CAP PO SCH (08:03)
[2017-10-07 08:04] LABS: INR 1.2 (0.9-1.1)
[2017-10-07] MEDS: INSULIN GLARGINE SOLOSTAR 100 UNITS/ML 3 ML PEN SC SCH (08:58)
[2017-10-07] MEDS: INSULIN ASPART 100 UNITS/ML 3 ML PEN SC SCH ×4 (09:00→22:05)
[2017-10-07] MEDS: SPIRONOLACTONE 25 MG TAB PO SCH ×2 (09:03→16:42)
--- NOTE | 2017-10-07 09:17 | PULMONARY PROGRESS NOTE ---
DATE: 10/07/2017 The patient evaluation today included a review of lab studies. SUBJECTIVE: The patient will undergo bronchoscopic evaluation on Monday. Her protime/INR is now 1.2. We would cover her with Lovenox this weekend, but hold the Lovenox after midnight, Monday night and we will perform bronchoscopic intervention on Monday a.m.
[2017-10-07] MEDS: OSELTAMIVIR PHOSPHATE SUSP 30 MG/5 ML UDP PO SCH ×2 (09:23→19:21)
[2017-10-07] MEDS: BOOST GLUCOSE CONTROL PO SCH ×2 (10:17→21:00)
--- NOTE | 2017-10-07 21:42 | Progress Note ---
Subjective Date of Service: Oct 07, 2017. Subjective Pt evaluation today including: conversation w/ patient, physical exam, chart review, lab review, review of studies, review of inpatient medication list Voiding: no voiding problems Patient feels slightly improved today as her shortness of breath has decreased. Problem List Medical Problems: (1) Cervical strain Status: Acute (2) Fall Status: Acute (3) Fatigue Status: Acute (4) Head injury Status: Acute (5) Head injury Status: Acute (6) Hip pain Status: Acute (7) Hypocalcemia Status: Acute (8) Hypoxia Status: Acute (9) Hypoxia Status: Acute (10) Lower extremity edema Status: Acute (11) PNA (pneumonia) Status: Acute (12) Pneumonia Status: Acute (13) Reactive airway disease Status: Acute (14) Right flank pain Status: Acute (15) Sepsis Status: Acute (16) Sepsis Status: Acute (17) Syncope Status: Acute (18) Traumatic compression fracture of third thoracic vertebra Status: Acute (19) Weakness Status: Acute Review of Systems All Other Systems: Reviewed and Negative Medications Last Resulted CBC 10/04/17 06:02 Red Blood Count 3.55, Mean Corpuscular Volume 97.2, Mean Corpuscular Hemoglobin 31.0, Mean Corpuscular Hemoglobin Concent 31.9, Mean Platelet Volume 10.7, Neutrophils (%) (Auto) 68.7, Lymphocytes (%) (Auto) 17.3, Monocytes (%) (Auto) 9.6, Eosinophils (%) (Auto) 0.6, Basophils (%) (Auto) 0.3, Neutrophils # (Auto) 4.89, Lymphocytes # (Auto) 1.23, Monocytes # (Auto) 0.68, Eosinophils # (Auto) 0.04, Basophils # (Auto) 0.02 Last Resulted BMP 10/04/17 06:02 10/06/17 05:12 Objective Vital Signs Date Time Temp Pulse Resp B/P (MAP) Pulse Ox O2 Delivery O2 Flow Rate FiO2 10/07/17 19:25 82 99/62 (74) 10/07/17 16:30 97 Nasal Cannula 3.0 10/07/17 15:07 36.8 80 20 131/73 (92) 97 10/07/17 08:04 97 Nasal Cannula 3.0 10/07/17 07:24 36.7 82 20 121/57 (78) 97 1/20/18 00:00 Nasal Cannula 3.0 10/06/17 23:31 36.9 72 22 153/78 (103) 97 Nasal Cannula 3.0 Physical Exam Comments: General Appearance:looks better, no longer ill appearing + obese Head: normocephalic, atraumatic, + pertinent finding (no tenderness over the mastoids b/l) Eyes: PERRL, sclerae normal ENT: + pertinent finding (MM dry, no lesions) Neck: supple (no meningismus, no rigidity ), no adenopathy, no JVD Respiratory/Chest: no respiratory distress, no accessory muscle use, + pertinent finding (no wheezes; good airation ) Cardiovascular: regular rate, rhythm, no gallop, no murmur, normal peripheral pulses Abdomen/GI: normal bowel sounds, non tender, soft, no organomegaly Back: normal inspection Extremities/Musculoskelatal: no pedal edema Neurologic/Psych: awake, no facial droop; strength 5/5 x 4 exts; DTRs 2+ b/l ) Skin: erythema noted on multiple sin folds on her right side of her chest. Lymphatic: no adenopathy (no cervical lymphadenopathy ) Laboratory Results Last 24 Hours Test 10/07/17 07:37 10/07/17 07:53 10/07/17 11:17 Prothrombin Time 12.7 SECONDS Prothromb Time International Ratio 1.2 Bedside Glucose 135 mg/dl 126 mg/dl Assessment and Plan 82yo female with multiple medical problems including COPD, chronic hypoxic respiratory failure on home o2, recent hospital admission for b/l DVTs and suspected PEs, chronic diastolic CHF, prior h/o MRSA pneumonia - presenting with chills, altered mental status, worsening cough, and diffuse arthralgias/ myalgias. Although rapid flu is negative her symptomatology is suspicious for influenza. I cannot exclude a developing pneumonia in the right lung base. 1. SARS- suspect 2nd to clinical influenza No significant change in breathing today. 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 However, patient has not had a fever while in the hospital. appreciate pulmonary input---bronchoscopy on monday--npo monday night Recommended to dc antibiotics as per ID and continue with tamiflu Supportive care - NC O2, inhalers/nebs prn, etc. 2. metabolic encephalopathy - resolved 3. severe candidal intertrigo fluconazole 150 mg PO weekly monday (today is first dose) likely cause of pain.improving 3. recent b/l DVTs - INR remains subtherapeutic today; will hold for bronch 4. COPD - Defer on IV steroids; however, will give "stress-dose steroids" for # 1 with prednisone 60mg daily. On prednisone 60 mg po daily She takes 32mg daily of prednisone per Dr. Khalil. will have bronch on monday 5. chronic hypoxic respiratory failure - multifactorial based on records. She is saturating well on home O2 amount. 6. T2DM - continue lantus + novolog; BSGs ac/hs. 7. orthostatic hypotension - continue midodrine. 8. chronic diastolic CHF - she appears mildly volume contracted today and not in exacerbation. 9. FEN - AHA/DM diet; NS hydration x 1 liter; lytes in AM. 10. DVT proph - on coumadin. 11. hypothyroidism - cont synthroid; most recent TSH earlier this month was normal. 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 13. abdominal pain per history - CT abd/pelvis without discrete pathology; u/a without UTI. No tenderness during my admission exam. Follow. Continued [facility] stay due to: inadequate oral pain control Discharge planning: uncertain Continued [facility] stay due to: inadequate oral pain control Discharge planning: uncertain
[2017-10-07] MEDS: SIMVASTATIN 20 MG TAB PO SCH (22:01)
[2017-10-07] MEDS: CALCIUM CARBONATE 1250MG TAB PO SCH (22:01)
[2017-10-07] MEDS: ROPINIROLE HCL 0.25 MG TAB PO SCH (22:02)
[2017-10-07] MEDS: ALBUT/IPRATROP 3MG/0.5MG NEB 3 ML VIAL INH PRN (22:36)
[2017-10-08] MEDS: LEVOTHYROXINE 100 MCG TAB PO SCH (05:56)
[2017-10-08 07:10] VITALS: BP 114/68; PULSE 76; TEMP 36.6; O2SAT 97
[2017-10-08] MEDS: TRAMADOL HCL 50 MG TAB PO SCH ×4 (09:48→20:14)
[2017-10-08] MEDS: POTASSIUM CHLORIDE 10 MEQ TABCR PO SCH ×2 (09:49→20:16)
[2017-10-08] MEDS: PANTOprazole SOD 40 MG TAB PO SCH (09:49)
[2017-10-08] MEDS: CALCITRIOL 0.25 MCG CAP PO SCH (09:49)
[2017-10-08] MEDS: CHOLECALCIFEROL 1000 INTER.UNIT TAB PO SCH ×2 (09:49→20:17)
[2017-10-08] MEDS: GABAPENTIN 300 MG CAP PO SCH ×2 (09:49→20:15)
[2017-10-08] MEDS: CYANOCOBALAMIN 500 MCG TAB (VIT B-12) PO SCH (09:50)
[2017-10-08] MEDS: CITALOPRAM 20 MG TAB PO SCH (09:50)
[2017-10-08] MEDS: FERROUS SULFATE 325 MG TAB PO SCH (09:50)
[2017-10-08] MEDS: NYSTATIN POWDER 15GM BTL EXT SCH ×3 (09:51→20:14)
[2017-10-08] MEDS: IPRATROPIUM BROMIDE/ALBUTEROL respimat INH INH SCH ×4 (09:52→20:14)
[2017-10-08] MEDS: MIDODRINE 2.5 MG TAB PO SCH ×3 (09:53→17:22)
[2017-10-08] MEDS: SPIRONOLACTONE 25 MG TAB PO SCH ×2 (09:55→17:21)
[2017-10-08] MEDS: INSULIN ASPART 100 UNITS/ML 3 ML PEN SC SCH ×4 (09:57→20:27)
[2017-10-08] MEDS: INSULIN GLARGINE SOLOSTAR 100 UNITS/ML 3 ML PEN SC SCH (09:57)
[2017-10-08] MEDS: BOOST GLUCOSE CONTROL PO SCH ×2 (11:08→20:14)
--- NOTE | 2017-10-08 12:59 | Progress Note ---
Subjective Date of Service: Oct 08, 2017. Subjective Pt evaluation today including: conversation w/ patient, physical exam, chart review, lab review, review of studies, conversation w/ home planning consultant salesperson Voiding: no voiding problems Problem List Medical Problems: (1) Cervical strain Status: Acute (2) Fall Status: Acute (3) Fatigue Status: Acute (4) Head injury Status: Acute (5) Head injury Status: Acute (6) Hip pain Status: Acute (7) Hypocalcemia Status: Acute (8) Hypoxia Status: Acute (9) Hypoxia Status: Acute (10) Lower extremity edema Status: Acute (11) PNA (pneumonia) Status: Acute (12) Pneumonia Status: Acute (13) Reactive airway disease Status: Acute (14) Right flank pain Status: Acute (15) Sepsis Status: Acute (16) Sepsis Status: Acute (17) Syncope Status: Acute (18) Traumatic compression fracture of third thoracic vertebra Status: Acute (19) Weakness Status: Acute Review of Systems All Other Systems: Reviewed and Negative Objective Vital Signs Date Time Temp Pulse Resp B/P (MAP) Pulse Ox O2 Delivery O2 Flow Rate FiO2 10/08/17 07:10 36.6 76 18 114/68 (83) 97 2.0 10/08/17 00:40 Nasal Cannula 3.0 10/07/17 23:42 36.7 76 18 95/57 (70) 92 2.0 10/07/17 22:37 67 16 98 Nasal Cannula 3.5 10/07/17 19:25 82 99/62 (74) 10/07/17 16:30 97 Nasal Cannula 3.0 10/07/17 15:07 36.8 80 20 131/73 (92) 97 Physical Exam General Appearance: + obese Comments: General Appearance:looks better, no longer ill appearing + obese Head: normocephalic, atraumatic, + pertinent finding (no tenderness over the mastoids b/l) Eyes: PERRL, sclerae normal ENT: + pertinent finding (MM dry, no lesions) Neck: supple (no meningismus, no rigidity ), no adenopathy, no JVD Respiratory/Chest: no respiratory distress, no accessory muscle use, + pertinent finding (no wheezes; good airation ) Cardiovascular: regular rate, rhythm, no gallop, no murmur, normal peripheral pulses Abdomen/GI: normal bowel sounds, non tender, soft, no organomegaly Laboratory Results Last 24 Hours Test 10/07/17 16:24 10/07/17 20:14 10/08/17 06:18 10/08/17 07:24 Bedside Glucose 234 mg/dl 195 mg/dl 111 mg/dl Prothrombin Time 10.7 SECONDS Prothromb Time International Ratio 1.0 Assessment and Plan 82yo female with multiple medical problems including COPD, chronic hypoxic respiratory failure on home o2, recent hospital admission for b/l DVTs and suspected PEs, chronic diastolic CHF, prior h/o MRSA pneumonia - presenting with chills, altered mental status, worsening cough, and diffuse arthralgias/ myalgias. Although rapid flu is negative her symptomatology is suspicious for influenza. I cannot exclude a developing pneumonia in the right lung base. 1. SARS- suspect 2nd to clinical influenza No significant change in breathing today. 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 However, patient has not had a fever while in the hospital. appreciate pulmonary input---bronchoscopy on monday--npo Monday night Recommended to dc antibiotics as per ID and continue with tamiflu Supportive care - [place] O2, inhalers/nebs prn, etc. 2. metabolic encephalopathy - resolved 3. severe candidal intertrigo fluconazole 150 mg PO weekly monday (today is first dose) likely cause of pain.improving 3. recent b/l DVTs - INR remains subtherapeutic today; will hold for bronch 4. COPD - Defer on IV steroids; however, will give "stress-dose steroids" for # 1 with prednisone 60mg daily. On prednisone 60 mg po daily She takes 32mg daily of prednisone per Dr. Khalil. will have bronch on monday 5. chronic hypoxic respiratory failure - multifactorial based on records. She is saturating well on home O2 amount. 6. T2DM - continue lantus + novolog; BSGs ac/hs. 7. orthostatic hypotension - continue midodrine. 8. chronic diastolic CHF - she appears mildly volume contracted today and not in exacerbation. 9. FEN - AHA/DM diet; NS hydration x 1 liter; lytes in AM. 10. DVT proph - on coumadin. 11. hypothyroidism - cont synthroid; most recent TSH earlier this month was normal. 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 13. abdominal pain per history - CT abd/pelvis without discrete pathology; u/a without UTI. No tenderness during my admission exam. Follow. Continued [facility] stay due to: inadequate oral pain control Discharge planning: uncertain Continued [facility] stay due to: inadequate oral pain control Discharge planning: uncertain
[2017-10-08] MEDS: TIOTROPIUM BROMIDE 5 PUFF/90 MCG INH INH SCH (13:24)
[2017-10-08 15:31] VITALS: BP 130/62; PULSE 84; TEMP 36.7; O2SAT 95
[2017-10-08] MEDS: SIMVASTATIN 20 MG TAB PO SCH (20:17)
[2017-10-08] MEDS: CALCIUM CARBONATE 1250MG TAB PO SCH (20:18)
[2017-10-08] MEDS: ROPINIROLE HCL 0.25 MG TAB PO SCH (20:18)
[2017-10-08] MEDS ORDERED: NURSING DECISION MEDICATION ORDER SCH (23:15)
[2017-10-08 23:34] VITALS: BP 125/70; PULSE 78; TEMP 36.8; O2SAT 96
[2017-10-09] MEDS: ACETAMINOPHEN 325 MG TAB PO PRN (00:22)
[2017-10-09] MEDS: INSULIN ASPART 100 UNITS/ML 3 ML PEN SC SCH ×4 (06:00→20:51)
[2017-10-09] MEDS: LEVOTHYROXINE 100 MCG TAB PO SCH (06:07)
[2017-10-09 07:04] VITALS: BP 151/69; PULSE 68; TEMP 36.6; O2SAT 97
[2017-10-09] MEDS: TRAMADOL HCL 50 MG TAB PO SCH ×4 (08:00→20:44)
[2017-10-09] MEDS: MIDODRINE 2.5 MG TAB PO SCH ×4 (08:00→17:09)
[2017-10-09] MEDS: NYSTATIN POWDER 15GM BTL EXT SCH ×3 (08:00→20:47)
--- NOTE | 2017-10-09 08:11 | Pre Sedation Assessment ---
Pre Sedation Assessment General Date of Sedation: Oct 09, 2017. Vital Signs Past 12 Hours Date Time Temp Pulse Resp B/P (MAP) Pulse Ox O2 Delivery O2 Flow Rate FiO2 10/09/17 07:04 36.6 68 18 151/69 (96) 97 3.0 10/09/17 00:10 Nasal Cannula 3.0 10/08/17 23:34 36.8 78 18 125/70 (88) 96 2.0 Pre-Sedation Airway Assessment Smoking Status: Never Smoker Hx of Sleep Apnea: Yes Short Thick Neck: Yes Thyro-mental Distance: < or =3 Finger Breadths Oral Cavity: Dentures Mallampati Classification: Class III ASA Classification: Class III NPO Status Date of Last Intake of Fluids: Oct 09, 2017 Time of Last Intake of Fluids: 0000 Date of Last Intake of Solids: Oct 08, 2017 Procedure Planning Contraindications for Sedation: None Current Medications Reviewed: Yes Notes The planned sedation has been discussed with the patient. Informed Consent was obtained. I have identified the patient, determined the appropriateness of sedation and have assessed the patient immediately prior to the procedure. All medicine(s) and interventions are by my order.
[2017-10-09] MEDS ORDERED: FENTANYL CITRATE INJ 50 MCG/1 ML 2 ML VIAL IV ONE (08:37)
[2017-10-09] MEDS ORDERED: LEVALBUTEROL 1.25MG/0.5ML NEB INH ONE (08:53)
[2017-10-09] MEDS ORDERED: LIDOCAINE VISCOUS 2% 100ML TOP ONE (08:53)
[2017-10-09] MEDS ORDERED: LIDOCAINE 4% INH SOLN 4 ML BTL TOP ONE (08:53)
[2017-10-09] MEDS ORDERED: OXYMETAZOLINE HCL 0.05% NA SPR 15 ML BTL ONE (08:53)
[2017-10-09] MEDS ORDERED: MIDAZOLAM HCL 5 MG/ML 1 ML VIAL IV ONE (08:53)
--- NOTE | 2017-10-09 08:55 | Post Sedation Assessment ---
Post Sedation Assessment General Date of Sedation Oct 09, 2017. Vital Signs: Vital Signs Past 12 Hours Date Time Temp Pulse Resp B/P (MAP) Pulse Ox O2 Delivery O2 Flow Rate FiO2 10/09/17 08:45 99 20 164/84 99 Mask 10 10/09/17 08:40 99 20 182/98 96 Mask 10 10/09/17 08:35 71 20 139/73 98 Mask 5 10/09/17 08:30 73 20 140/85 100 Mask 5 10/09/17 08:09 68 18 155/84 100 Mask 3 10/09/17 07:04 36.6 68 18 151/69 (96) 97 3.0 10/09/17 00:10 Nasal Cannula 3.0 10/08/17 23:34 36.8 78 18 125/70 (88) 96 2.0 Post Procedure Recovery Score Activity: (2) Moves 4 extremities * Respiration: (2) Deep breath/cough Circulation: (2) +/-20% PreAnes Value Consciousness: (1) Arouseable (by name) Oxygen Saturation: (1) O2 needed for >90% Post Anesthesia Score: 8 Post Sedation Plan On clinical assessment, the patient appears to have tolerated the sedation without complications. Patient is recovering as anticipated. Patient will continue to be monitored by nursing and may be discharged when sedation discharge criteria are met per below protocol. Upon Completions of procedure and additional 15 minutes continue every 5 minute vital signs and the P.A.R. score; then discharge to a Phase I or Fast Track to Phase II per the following guidelines: * Discharge Patient to appropriate Phase II area if PAR is 8 or greater or return to pre- procedure baseline. The post - procedure orders will be as directed. * If PAR score is less than 8 or not return to pre-procedure baseline then patient will follow Phase I monitoring till PAR is reached for Phase II. The Phase I may be done in procedure room or may call to secure a Phase I area. * If naloxone or flumazenil are used for reversal, hold in Phase I for an additional 60 -120 minutes before discharge to Phase II. Please call the Sedation Physician to re-evaluate and complete post-note for discharge to Phase II area. Do NOT discharge from procedure sedation or Phase 1 until post- sedation evaluation note is complete by procedure /sedation MD Sedation Discharge Instructions to be given to the patient at discharge to home.
[2017-10-09 09:15] VITALS: BP 138/70; PULSE 80; TEMP 36.7; O2SAT 92
[2017-10-09 09:45] VITALS: BP 116/68; PULSE 78; TEMP 36.9; O2SAT 95
[2017-10-09 10:15] VITALS: BP 102/64; PULSE 72; TEMP 36.5; O2SAT 94
[2017-10-09 10:45] VITALS: BP 104/67; PULSE 75; TEMP 36.5; O2SAT 94
[2017-10-09] MEDS: IPRATROPIUM BROMIDE/ALBUTEROL respimat INH INH SCH ×4 (11:11→20:47)
[2017-10-09] MEDS: BOOST GLUCOSE CONTROL PO SCH ×2 (11:12→20:43)
[2017-10-09] MEDS: TIOTROPIUM BROMIDE 5 PUFF/90 MCG INH INH SCH (11:12)
[2017-10-09] MEDS: SPIRONOLACTONE 25 MG TAB PO SCH ×2 (11:12→17:10)
[2017-10-09] MEDS: CALCITRIOL 0.25 MCG CAP PO SCH (11:13)
[2017-10-09] MEDS: CITALOPRAM 20 MG TAB PO SCH (11:13)
[2017-10-09] MEDS: PANTOprazole SOD 40 MG TAB PO SCH (11:14)
[2017-10-09] MEDS: POTASSIUM CHLORIDE 10 MEQ TABCR PO SCH ×2 (11:14→20:45)
[2017-10-09] MEDS: FERROUS SULFATE 325 MG TAB PO SCH (11:14)
[2017-10-09] MEDS: GABAPENTIN 300 MG CAP PO SCH ×2 (11:14→20:46)
[2017-10-09] MEDS: CYANOCOBALAMIN 500 MCG TAB (VIT B-12) PO SCH (11:14)
[2017-10-09] MEDS: CHOLECALCIFEROL 1000 INTER.UNIT TAB PO SCH ×2 (11:14→20:46)
[2017-10-09] MEDS: INSULIN GLARGINE SOLOSTAR 100 UNITS/ML 3 ML PEN SC SCH (11:36)
--- NOTE | 2017-10-09 12:33 | OPERATIVE REPORT ---
DATE OF OPERATION: 10/09/2017 PROCEDURE: Fiberoptic bronchoscopy with bronchoalveolar lavage. INDICATIONS: Persistent areas of atelectasis/rule out mucoid impaction. ANESTHESIA PREOPERATIVELY: None. ANESTHESIA DURING PROCEDURE: 25 mcg IV fentanyl, 3 mg IV Versed, 20 mL 2% Xylocaine spray above and below the cords, 4% viscous Xylocaine intranasally. DESCRIPTION OF PROCEDURE: Fiberoptic bronchoscope was inserted into the right naris with minimal difficulty and passed to the level of the true vocal cords. Cords appeared to approximate normally with phonation without evidence of lesions or paralysis. The area was anesthetized with 2% Xylocaine spray and the scope was then introduced in the right and left tracheobronchial tree. The shaan was sharp. The right main stem bronchus was explored initially and no obvious endobronchial lesions were seen. Right upper lobe of the apical posterior, anterior segments, bronchus intermedius, right middle lobe, medial lateral segments and all basilar segments right lower lobe were found to be free of endobronchial lesions. There was evidence for EDAC with collapse of the right mainstem bronchus from the shaan to the level of the right middle lobe with coughing and expiratory maneuvers. A moderate degree of inflammatory mucosal change was seen. Each lobar segment showed evidence for mucoid impaction and the right middle lobe and lower lobe down to the segmental bronchi were lavaged with normosol and the aspirate sent for appropriate studies. The scope was then withdrawn to the shaan and then inserted into the left mainstem bronchus. This left upper lobe, lingular subdivision and left lower lobe were found to be free of endobronchial lesions with a moderate amount of mucopurulent secretion, lavaged from each lobar segment until clear. Procedure was then terminated. The patient was given a nebulizer treatment with Xopenex 1.25 mg and transferred to the medical floor, hemodynamically stable with no signs of respiratory compromise. Will await microbiological and cytologic examination of the bronchial washings. I attest to the content of the Intraoperative Record and any orders documented therein. Any exception s are noted below.
[2017-10-09 13:00] LABS: BASO % 0.2 %; BASO ABS # 0.02 K/uL (0-0.2); EOS % 0.5 %; EOS ABS # 0.05 K/uL (0-0.5); HEMATOCRIT 35.7 % (37-47); HEMOGLOBIN 11.6 g/dL (12.0-16.0); IG# 0.38 K/uL (0.00-0.02); LYMPH % 12.4 %; LYMPH ABS # 1.25 K/uL (1.2-3.4); MEAN CELL VOLUME 99.4 fL (80-100); MEAN CORPUSCULAR HEMOGLOBIN 32.3 pg (25-34); MEAN CORPUSCULAR HGB CONC 32.5 g/dl (32-36); MEAN PLATELET VOLUME 10.4 fL (7.4-10.4); MONO % 6.9 %; NEUT % 76.2 %; NEUT ABS # 7.68 K/uL (1.4-6.5); NUCLEATED RED BLOOD CELL ABS 0.04 K/uL (0-0); PLATELET COUNT 193 K/uL (130-400); RED CELL DISTRIBUTION WIDTH CV 16.5 % (11.5-14.5); RED CELL DISTRIBUTION WIDTH SD 59.3 fL (36.4-46.3); WHITE BLOOD COUNT 10.08 K/uL (4.8-10.8)
[2017-10-09 13:16] LABS: CALCIUM 8.7 mg/dl (8.5-10.1); CREATININE 0.82 mg/dl (0.60-1.20); POTASSIUM 3.7 mmol/L (3.5-5.1)
--- NOTE | 2017-10-09 13:20 | Progress Note ---
Subjective Date of Service: Oct 09, 2017. Subjective Pt evaluation today including: conversation w/ patient, conversation w/ family , physical exam, chart review, lab review, review of studies, review of inpatient medication list Problem List Medical Problems: (1) Cervical strain Status: Acute (2) Fall Status: Acute (3) Fatigue Status: Acute (4) Head injury Status: Acute (5) Head injury Status: Acute (6) Hip pain Status: Acute (7) Hypocalcemia Status: Acute (8) Hypoxia Status: Acute (9) Hypoxia Status: Acute (10) Lower extremity edema Status: Acute (11) PNA (pneumonia) Status: Acute (12) Pneumonia Status: Acute (13) Reactive airway disease Status: Acute (14) Right flank pain Status: Acute (15) Sepsis Status: Acute (16) Sepsis Status: Acute (17) Syncope Status: Acute (18) Traumatic compression fracture of third thoracic vertebra Status: Acute (19) Weakness Status: Acute Review of Systems Constitutional: No see HPI, No fever, No chills, No sweats, No weight loss, No weakness, No fatigue, No problem reported Eyes: No see HPI, No worsening of vision, No eye pain, No redness, No discharge , No diplopia, No problem reported ENT: No see HPI, No hearing loss, No unusual epistaxis, No nasal symptoms, No sore throat, No tinnitus, No dental problems, No trouble swallowing, No problem reported Respiratory: No see HPI, No cough, No sputum, No wheezing, No shortness of breath, No dyspnea on exertion, No dyspnea at rest, No hemoptysis, No problem reported Cardiac: No see HPI, No chest pain, No orthopnea, No PND, No edema, No claudication, No palpitations, No problem reported Abdomen: No see HPI, No pain, No nausea, No vomiting, No diarrhea, No constipation, No GI bleeding, No problem reported Musculoskeletal: No see HPI, No joint pain, No muscle pain, No swelling, No calf pain, No problem reported Female : No see HPI, No dysuria, No urinary frequency, No hematuria, No incontinence, No abnormal vaginal bleeding, No vaginal discharge, No problem reported Psychiatric: No see HPI, No depression symptoms, No anhedonism, No anxiety, No insomnia, No substance abuse, No problem reported Heme: No see HPI, No abnormal bleeding/bruising, No clotting problems, No swollen lymph nodes, No night sweats, No problem reported Endo: No see HPI, No fatigue, No excessive thirst, No excessive urination, No problem reported Skin: No see HPI, No rash, No itch, No new/changing skin lesions, No color change, No bleeding, No problem reported Objective Vital Signs Date Time Temp Pulse Resp B/P (MAP) Pulse Ox O2 Delivery O2 Flow Rate FiO2 10/09/17 10:45 36.5 75 18 104/67 (79) 94 Nasal Cannula 4.0 10/09/17 10:15 36.5 72 18 102/64 (77) 94 Nasal Cannula 4.0 10/09/17 09:45 36.9 78 18 116/68 (84) 95 Nasal Cannula 4.0 10/09/17 09:15 36.7 80 20 138/70 (92) 92 Nasal Cannula 4.0 10/09/17 09:00 86 18 141/66 97 Nasal Cannula 4 10/09/17 08:55 84 18 144/73 97 Nasal Cannula 4 10/09/17 08:50 81 18 150/72 99 Mask 10 10/09/17 08:45 99 20 164/84 99 Mask 10 10/09/17 08:40 99 20 182/98 96 Mask 10 10/09/17 08:35 71 20 139/73 98 Mask 5 10/09/17 08:30 73 20 140/85 100 Mask 5 10/09/17 08:30 Oxymask 10/09/17 08:09 68 18 155/84 100 Mask 3 10/09/17 08:00 Nasal Cannula 3.0 10/09/17 07:04 36.6 68 18 151/69 (96) 97 3.0 10/09/17 00:10 Nasal Cannula 3.0 10/08/17 23:34 36.8 78 18 125/70 (88) 96 2.0 10/08/17 16:00 Nasal Cannula 3.0 10/08/17 15:31 36.7 84 20 130/62 (84) 95 Physical Exam General Appearance: no apparent distress, + obese Eyes: normal inspection, EOMI ENT: normal ENT inspection, hearing grossly normal Neck: supple Respiratory/Chest: chest non-tender, lungs clear, normal breath sounds, no respiratory distress, no accessory muscle use Cardiovascular: regular rate, rhythm, no edema, no gallop, no JVD, no murmur Abdomen: normal bowel sounds, soft, no pulsatile mass, + distended Extremities: normal range of motion, non-tender, normal inspection, no pedal edema Neurologic/Psychiatric: electrocardiogram technician II-XII nml as tested, no motor/sensory deficits, alert, normal mood/affect Skin: normal color, warm/dry, no rash Laboratory Results Last 24 Hours Test 10/08/17 16:15 10/08/17 19:54 10/08/17 23:57 10/09/17 06:04 Bedside Glucose 231 mg/dl 257 mg/dl 165 mg/dl 124 mg/dl Test 10/09/17 06:38 10/09/17 07:31 10/09/17 08:55 10/09/17 12:48 Prothrombin Time 10.5 SECONDS Prothromb Time International Ratio 1.0 Bedside Glucose 142 mg/dl White Blood Count 10.08 K/uL Red Blood Count 3.59 M/uL Hemoglobin 11.6 g/dL Hematocrit 35.7 % Mean Corpuscular Volume 99.4 fL Mean Corpuscular Hemoglobin 32.3 pg Mean Corpuscular Hemoglobin Concent 32.5 g/dl Platelet Count 193 K/uL Mean Platelet Volume 10.4 fL Neutrophils (%) (Auto) 76.2 % Lymphocytes (%) (Auto) 12.4 % Monocytes (%) (Auto) 6.9 % Eosinophils (%) (Auto) 0.5 % Basophils (%) (Auto) 0.2 % Neutrophils # (Auto) 7.68 K/uL Lymphocytes # (Auto) 1.25 K/uL Monocytes # (Auto) 0.70 K/uL Eosinophils # (Auto) 0.05 K/uL Basophils # (Auto) 0.02 K/uL RDW Standard Deviation 59.3 fL RDW Coefficient of Variation 16.5 % Immature Granulocyte % (Auto) 3.8 % Immature Granulocyte # (Auto) 0.38 K/uL Nucleated RBC Absolute Count (auto) 0.04 K/uL Nucleated Red Blood Cells % 0.4 % Assessment and Plan 82 years old female with chronic hypoxic respiratory failure, COPD on 2 L home oxygen as baseline, recent bilateral DVTs and pulmonary embolism currently on Coumadin, diastolic CHF not in exacerbation. Presented to the hospital with altered mental status, myalgia, worsening cough. SIRS present on admission Suspected influenza Blood and urine cultures are negative Initially was started on antibiotics, stopped by ID Empiric Tamiflu Acute and chronic respiratory failure Status post bronchoscopy done by Dr. Matthew 10/09/2017, revealed mucoid impaction in the right middle lobe bronchus and lower lobe, status post appropriate lavage infection. Left lower lobe bronchus field moderate amount of mucopurulent secretions status post lavage. Patient tolerated the procedure well Supportive care - NC O2, inhalers/nebs prn, etc. Continue steroids and bronchodilators Metabolic encephalopathy, improved, likely was multi factorial as above Rabia intertrigo fluconazole 150 mg PO weekly monday (today is first dose) Nystatin Recent DVT/PE Restart Coumadin T2DM - continue lantus + novolog; BSGs ac/hs. orthostatic hypotension - continue midodrine. chronic diastolic CHF/ not in exacerbation. DVT proph - on coumadin. hypothyroidism - cont synthroid; most recent TSH earlier this month was normal. 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 abdominal tenderness on exam- CT abd/pelvis was not informative Ordered lactic acid and reevaluate in a.m. Continued [facility] stay due to: inadequate oral pain control Discharge planning: uncertain
[2017-10-09 15:18] VITALS: BP 103/63; PULSE 79; TEMP 36.7; O2SAT 97
[2017-10-09] MEDS: HEPARIN SOD 5000 UNIT/0.5 ML CARP SQ SCH ×2 (15:24→20:52)
[2017-10-09] MEDS ORDERED: NURSING VERBAL MED ORDER ONE (16:00)
[2017-10-09] MEDS: WARFARIN SOD 5 MG TAB PO SCH (17:08)
[2017-10-09] MEDS: ROPINIROLE HCL 0.25 MG TAB PO SCH (20:45)
[2017-10-09] MEDS: CALCIUM CARBONATE 1250MG TAB PO SCH (20:46)
[2017-10-09] MEDS: SIMVASTATIN 20 MG TAB PO SCH (20:47)
[2017-10-10 01:16] VITALS: BP 119/72; PULSE 72; TEMP 36.1; O2SAT 97
[2017-10-10 04:16] LABS: BASO % 0.2 %; BASO ABS # 0.02 K/uL (0-0.2); EOS % 0.2 %; EOS ABS # 0.02 K/uL (0-0.5); HEMATOCRIT 34.5 % (37-47); HEMOGLOBIN 11.1 g/dL (12.0-16.0); IG# 0.37 K/uL (0.00-0.02); LYMPH % 16.1 %; LYMPH ABS # 1.38 K/uL (1.2-3.4); MEAN CELL VOLUME 98.3 fL (80-100); MEAN CORPUSCULAR HEMOGLOBIN 31.6 pg (25-34); MEAN CORPUSCULAR HGB CONC 32.2 g/dl (32-36); MEAN PLATELET VOLUME 10.7 fL (7.4-10.4); MONO % 8.2 %; NEUT ABS # 6.07 K/uL (1.4-6.5); NUCLEATED RED BLOOD CELL ABS 0.06 K/uL (0-0); PLATELET COUNT 196 K/uL (130-400); RED CELL DISTRIBUTION WIDTH CV 16.9 % (11.5-14.5); RED CELL DISTRIBUTION WIDTH SD 60.6 fL (36.4-46.3); WHITE BLOOD COUNT 8.56 K/uL (4.8-10.8)
[2017-10-10 04:43] LABS: ALBUMIN 2.9 gm/dl (3.4-5.0); CALCIUM 8.5 mg/dl (8.5-10.1); CREATININE 0.9 mg/dl (0.60-1.20); POTASSIUM 4.1 mmol/L (3.5-5.1); TOTAL PROTEIN 5.8 gm/dl (6.4-8.2)
[2017-10-10] MEDS: LEVOTHYROXINE 100 MCG TAB PO SCH (06:09)
[2017-10-10] MEDS: HEPARIN SOD 5000 UNIT/0.5 ML CARP SQ SCH ×2 (06:11→13:22)
[2017-10-10 07:32] VITALS: BP 121/76; PULSE 77; TEMP 36.7; O2SAT 100
[2017-10-10] MEDS: NYSTATIN POWDER 15GM BTL EXT SCH ×3 (07:55→19:25)
[2017-10-10] MEDS: IPRATROPIUM BROMIDE/ALBUTEROL respimat INH INH SCH ×4 (07:55→19:23)
[2017-10-10] MEDS: POTASSIUM CHLORIDE 10 MEQ TABCR PO SCH ×2 (07:56→19:23)
[2017-10-10] MEDS: MIDODRINE 2.5 MG TAB PO SCH ×3 (07:56→16:52)
[2017-10-10] MEDS: TIOTROPIUM BROMIDE 5 PUFF/90 MCG INH INH SCH (07:56)
[2017-10-10] MEDS: CHOLECALCIFEROL 1000 INTER.UNIT TAB PO SCH ×2 (07:56→19:24)
[2017-10-10] MEDS: CALCITRIOL 0.25 MCG CAP PO SCH (07:57)
[2017-10-10] MEDS: GABAPENTIN 300 MG CAP PO SCH ×2 (07:57→19:24)
[2017-10-10] MEDS: SPIRONOLACTONE 25 MG TAB PO SCH ×2 (07:58→16:52)
[2017-10-10] MEDS: PANTOprazole SOD 40 MG TAB PO SCH (07:58)
[2017-10-10] MEDS: CITALOPRAM 20 MG TAB PO SCH (07:58)
[2017-10-10] MEDS: CYANOCOBALAMIN 500 MCG TAB (VIT B-12) PO SCH (07:59)
[2017-10-10] MEDS: FERROUS SULFATE 325 MG TAB PO SCH (07:59)
[2017-10-10 08:00] VITALS: O2SAT 100
[2017-10-10] MEDS: TRAMADOL HCL 50 MG TAB PO SCH ×4 (08:04→19:26)
[2017-10-10] MEDS: INSULIN GLARGINE SOLOSTAR 100 UNITS/ML 3 ML PEN SC SCH (08:14)
[2017-10-10] MEDS: INSULIN ASPART 100 UNITS/ML 3 ML PEN SC SCH ×4 (09:16→20:29)
[2017-10-10] MEDS: BOOST GLUCOSE CONTROL PO SCH ×2 (10:06→19:23)
--- NOTE | 2017-10-10 12:27 | Clinical Documentation Query ---
Dr. MAUREEN RAZO, [facility] : CLINICAL DOCUMENTATION QUERY Patient is an 82 year old female admitted for evaluation of altered mental status, cough, myalgias. Documentation included "early sepsis", then evolved to "SARS", and subsequently has again changed to "SIRS" due to influenza. In ICD 10 language, SIRS can only be captured in the setting of a non-infectious process. Therefore, as appropriate, consider documentation of sepsis as this is amenable to ICD 10 coding. In your clinical opinion is this patient being managed for: ( x ) Sepsis due to pneumonia ( ) Not Agree ( ) Other explanation of clinical findings (Please Explain) ( ) Unable to determine (Please Define) ( ) Need to Discuss Please clarify and document your clinical opinion in the progress notes and discharge summary. Terms such as "probable", "suspected", "likely", "questionable", "possible", or "still to be ruled out" are acceptable. IF IN AGREEMENT, YOU MUST DOCUMENT ABOVE DIAGNOSTIC STATEMENT IN DAILY PROGRESS NOTES AND DISCHARGE SUMMARY. This document is not part of the patient's record. Thank You, Huber Campuzano, RN [phone]
[2017-10-10 15:47] VITALS: BP 143/71; PULSE 84; TEMP 36.8; O2SAT 94
[2017-10-10] MEDS: WARFARIN SOD 5 MG TAB PO SCH (16:52)
--- NOTE | 2017-10-10 18:20 | Progress Note ---
Subjective Date of Service: Oct 10, 2017. Subjective Pt evaluation today including: conversation w/ patient, physical exam, chart review, lab review, review of inpatient medication list Problem List Medical Problems: (1) Cervical strain Status: Acute (2) Fall Status: Acute (3) Fatigue Status: Acute (4) Head injury Status: Acute (5) Head injury Status: Acute (6) Hip pain Status: Acute (7) Hypocalcemia Status: Acute (8) Hypoxia Status: Acute (9) Hypoxia Status: Acute (10) Lower extremity edema Status: Acute (11) PNA (pneumonia) Status: Acute (12) Pneumonia Status: Acute (13) Reactive airway disease Status: Acute (14) Right flank pain Status: Acute (15) Sepsis Status: Acute (16) Sepsis Status: Acute (17) Syncope Status: Acute (18) Traumatic compression fracture of third thoracic vertebra Status: Acute (19) Weakness Status: Acute Review of Systems Constitutional: No see HPI, No fever, No chills, No sweats, No weight loss, No weakness, No fatigue, No problem reported Eyes: No see HPI, No worsening of vision, No eye pain, No redness, No discharge , No diplopia, No problem reported ENT: No see HPI, No hearing loss, No unusual epistaxis, No nasal symptoms, No sore throat, No tinnitus, No dental problems, No trouble swallowing, No problem reported Respiratory: No see HPI, No cough, No sputum, No wheezing, No shortness of breath, No dyspnea on exertion, No dyspnea at rest, No hemoptysis, No problem reported Cardiac: No see HPI, No chest pain, No orthopnea, No PND, No edema, No claudication, No palpitations, No problem reported Breast: No see HPI, No breast lump, No change in shape, No nipple discharge, No breast pain, No problem reported Abdomen: No see HPI, No pain, No nausea, No vomiting, No diarrhea, No constipation, No GI bleeding, No problem reported Musculoskeletal: No see HPI, No joint pain, No muscle pain, No swelling, No calf pain, No problem reported Female : No see HPI, No dysuria, No urinary frequency, No hematuria, No incontinence, No abnormal vaginal bleeding, No vaginal discharge, No problem reported Neurologic: No see HPI, No memory loss, No paralysis, No weakness, No numbness/ tingling, No vertigo, No balance problems, No problem reported Psychiatric: No see HPI, No depression symptoms, No anhedonism, No anxiety, No insomnia, No substance abuse, No problem reported Heme: No see HPI, No abnormal bleeding/bruising, No clotting problems, No swollen lymph nodes, No night sweats, No problem reported Endo: No see HPI, No fatigue, No excessive thirst, No excessive urination, No problem reported Skin: No see HPI, No rash, No itch, No new/changing skin lesions, No color change, No bleeding, No problem reported Objective Vital Signs Date Time Temp Pulse Resp B/P (MAP) Pulse Ox O2 Delivery O2 Flow Rate FiO2 10/10/17 16:00 Nasal Cannula 3.0 10/10/17 15:47 36.8 84 18 143/71 (95) 94 Nasal Cannula 3.0 10/10/17 08:00 100 Nasal Cannula 3.0 10/10/17 07:32 36.7 77 20 121/76 (91) 100 10/10/17 01:16 36.1 72 18 119/72 (88) 97 2.0 10/10/17 00:00 Nasal Cannula 3.0 10/09/17 20:00 Nasal Cannula 3.0 Physical Exam General Appearance: no apparent distress, + obese Eyes: normal inspection, EOMI ENT: normal ENT inspection, hearing grossly normal Neck: supple Respiratory/Chest: chest non-tender, lungs clear, normal breath sounds, no respiratory distress, no accessory muscle use Cardiovascular: regular rate, rhythm, no edema, no gallop, no JVD, no murmur Abdomen: normal bowel sounds, non tender, soft, no organomegaly, no pulsatile mass Extremities: normal range of motion, non-tender, normal inspection, no pedal edema, no calf tenderness 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, no motor/sensory deficits, alert, normal mood/affect, oriented x 3 Skin: normal color, warm/dry, no rash Laboratory Results Last 24 Hours Test 10/09/17 20:20 10/10/17 03:55 10/10/17 07:51 10/10/17 11:30 Bedside Glucose 204 mg/dl 88 mg/dl 140 mg/dl White Blood Count 8.56 K/uL Red Blood Count 3.51 M/uL Hemoglobin 11.1 g/dL Hematocrit 34.5 % Mean Corpuscular Volume 98.3 fL Mean Corpuscular Hemoglobin 31.6 pg Mean Corpuscular Hemoglobin Concent 32.2 g/dl Platelet Count 196 K/uL Mean Platelet Volume 10.7 fL Neutrophils (%) (Auto) 71.0 % Lymphocytes (%) (Auto) 16.1 % Monocytes (%) (Auto) 8.2 % Eosinophils (%) (Auto) 0.2 % Basophils (%) (Auto) 0.2 % Neutrophils # (Auto) 6.07 K/uL Lymphocytes # (Auto) 1.38 K/uL Monocytes # (Auto) 0.70 K/uL Eosinophils # (Auto) 0.02 K/uL Basophils # (Auto) 0.02 K/uL RDW Standard Deviation 60.6 fL RDW Coefficient of Variation 16.9 % Immature Granulocyte % (Auto) 4.3 % Immature Granulocyte # (Auto) 0.37 K/uL Nucleated RBC Absolute Count (auto) 0.06 K/uL Nucleated Red Blood Cells % 0.6 % Prothrombin Time 10.0 SECONDS Prothromb Time International Ratio 1.0 Sodium Level 137 mmol/L Potassium Level 4.1 mmol/L Chloride Level 100 mmol/L Carbon Dioxide Level 36 mmol/L Anion Gap 1.0 mmol/L Blood Urea Nitrogen 29 mg/dl Creatinine 0.90 mg/dl Est Creatinine Clear Calc Drug Dose 53.5 ml/min Estimated GFR () 70.0 Estimated GFR (Non- 60.4 BUN/Creatinine Ratio 32.5 Random Glucose 112 mg/dl Lactic Acid Level 1.4 mmol/L Calcium Level 8.5 mg/dl Magnesium Level 2.0 mg/dl Total Bilirubin 0.4 mg/dl Aspartate Amino Transf (AST/SGOT) 12 U/L Alanine Aminotransferase (ALT/SGPT) 33 U/L Alkaline Phosphatase 50 U/L Total Protein 5.8 gm/dl Albumin 2.9 gm/dl Globulin 2.9 gm/dl Albumin/Globulin Ratio 1.0 Test 10/10/17 16:24 Bedside Glucose 246 mg/dl Assessment and Plan 82 years old female with chronic hypoxic respiratory failure, COPD on 2 L home oxygen as baseline, recent bilateral DVTs and pulmonary embolism currently on Coumadin, diastolic CHF not in exacerbation. Presented to the hospital with altered mental status, myalgia, worsening cough. SIRS present on admission possibly reactive due to PE, pneumonia ruled out Suspected influenza, treated empirically Blood and urine cultures are negative Initially was started on antibiotics, stopped by ID Empiric Tamiflu Acute and chronic respiratory failure Status post bronchoscopy done by Dr. Matthew 10/09/2017, revealed mucoid impaction in the right middle lobe bronchus and lower lobe, status post appropriate lavage infection. Left lower lobe bronchus field moderate amount of mucopurulent secretions status post lavage. Patient tolerated the procedure well Supportive care - NC O2, inhalers/nebs prn, etc. Continue steroids and bronchodilators Metabolic encephalopathy, improved, likely was multi factorial as above Rabia intertrigo fluconazole 150 mg PO weekly monday (today is first dose) Nystatin Recent DVT/PE Restart Coumadin and heparin drip T2DM - continue lantus + novolog; BSGs ac/hs. orthostatic hypotension - continue midodrine. chronic diastolic CHF/ not in exacerbation. DVT proph - on coumadin. hypothyroidism - cont synthroid; most recent TSH earlier this month was normal. 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 abdominal tenderness improved on exam- CT abd/pelvis was not informative lactic acid normalized today Continued [facility] stay due to: inadequate oral pain control Discharge planning: uncertain
[2017-10-10] MEDS: SIMVASTATIN 20 MG TAB PO SCH (19:24)
[2017-10-10] MEDS: ROPINIROLE HCL 0.25 MG TAB PO SCH (19:24)
[2017-10-10] MEDS: CALCIUM CARBONATE 1250MG TAB PO SCH (19:26)
[2017-10-10] MEDS: HEPARIN 25,000 UNIT/500ML D5W 500 ML IV PRN ×2 (20:02→23:32)
[2017-10-10 20:17] LABS: PTT PATIENT 24.5 SECONDS (21.0-31.0)
[2017-10-10 23:20] VITALS: BP 149/74; PULSE 72; TEMP 36.7; O2SAT 97
[2017-10-11] MEDS: ACETAMINOPHEN 325 MG TAB PO PRN ×2 (01:49→23:25)
[2017-10-11 03:02] LABS: PTT PATIENT 55.3 SECONDS (21.0-31.0)
[2017-10-11] MEDS: LEVOTHYROXINE 100 MCG TAB PO SCH (06:29)
[2017-10-11 07:10] LABS: INR 1.1 (0.9-1.1)
[2017-10-11 07:42] LABS: ALBUMIN 3.3 gm/dl (3.4-5.0); CALCIUM 9.2 mg/dl (8.5-10.1)
[2017-10-11 07:43] LABS: TOTAL PROTEIN 6.6 gm/dl (6.4-8.2)
[2017-10-11 07:44] VITALS: BP 130/80; PULSE 72; TEMP 36.9; O2SAT 96
[2017-10-11 08:00] VITALS: O2SAT 96
[2017-10-11] MEDS: NYSTATIN POWDER 15GM BTL EXT SCH ×3 (08:47→21:03)
[2017-10-11] MEDS: TIOTROPIUM BROMIDE 5 PUFF/90 MCG INH INH SCH (08:48)
[2017-10-11] MEDS: IPRATROPIUM BROMIDE/ALBUTEROL respimat INH INH SCH ×4 (08:48→21:02)
[2017-10-11] MEDS: GABAPENTIN 300 MG CAP PO SCH ×2 (08:48→21:12)
[2017-10-11] MEDS: CHOLECALCIFEROL 1000 INTER.UNIT TAB PO SCH ×2 (08:48→21:12)
[2017-10-11] MEDS: SPIRONOLACTONE 25 MG TAB PO SCH ×2 (08:48→17:35)
[2017-10-11] MEDS: FERROUS SULFATE 325 MG TAB PO SCH (08:48)
[2017-10-11] MEDS: CYANOCOBALAMIN 500 MCG TAB (VIT B-12) PO SCH (08:49)
[2017-10-11] MEDS: POTASSIUM CHLORIDE 10 MEQ TABCR PO SCH ×2 (08:49→21:14)
[2017-10-11] MEDS: CITALOPRAM 20 MG TAB PO SCH (08:49)
[2017-10-11] MEDS: PANTOprazole SOD 40 MG TAB PO SCH (08:50)
[2017-10-11] MEDS: MIDODRINE 2.5 MG TAB PO SCH ×3 (08:50→17:35)
[2017-10-11] MEDS: CALCITRIOL 0.25 MCG CAP PO SCH (08:50)
[2017-10-11] MEDS: INSULIN GLARGINE SOLOSTAR 100 UNITS/ML 3 ML PEN SC SCH (08:54)
[2017-10-11] MEDS: INSULIN ASPART 100 UNITS/ML 3 ML PEN SC SCH ×4 (08:54→21:09)
[2017-10-11] MEDS: BOOST GLUCOSE CONTROL PO SCH ×2 (09:02→21:13)
[2017-10-11] MEDS: TRAMADOL HCL 50 MG TAB PO SCH ×4 (09:02→21:11)
[2017-10-11] MEDS ORDERED: CEFEPIME IV 2,000 MG in DEXTROSE 5% 100ML 100 ML IV SCH (10:45)
[2017-10-11] MEDS: CEFEPIME IV 2,000 MG in SYRINGE 7.5 ML IV SCH ×2 (11:35→23:26)
--- NOTE | 2017-10-11 16:10 | Progress Note ---
Subjective Date of Service: Oct 11, 2017. Subjective Pt evaluation today including: conversation w/ patient, conversation w/ family , physical exam, chart review, lab review, review of studies, review of inpatient medication list Problem List Medical Problems: (1) Cervical strain Status: Acute (2) Fall Status: Acute (3) Fatigue Status: Acute (4) Head injury Status: Acute (5) Head injury Status: Acute (6) Hip pain Status: Acute (7) Hypocalcemia Status: Acute (8) Hypoxia Status: Acute (9) Hypoxia Status: Acute (10) Lower extremity edema Status: Acute (11) PNA (pneumonia) Status: Acute (12) Pneumonia Status: Acute (13) Reactive airway disease Status: Acute (14) Right flank pain Status: Acute (15) Sepsis Status: Acute (16) Sepsis Status: Acute (17) Syncope Status: Acute (18) Traumatic compression fracture of third thoracic vertebra Status: Acute (19) Weakness Status: Acute Review of Systems Constitutional: No see HPI, No fever, No chills, No sweats, No weight loss, No weakness, No fatigue, No problem reported Eyes: No see HPI, No worsening of vision, No eye pain, No redness, No discharge , No diplopia, No problem reported ENT: No see HPI, No hearing loss, No unusual epistaxis, No nasal symptoms, No sore throat, No tinnitus, No dental problems, No trouble swallowing, No problem reported Respiratory: No see HPI, No cough, No sputum, No wheezing, No shortness of breath, No dyspnea on exertion, No dyspnea at rest, No hemoptysis, No problem reported Cardiac: No see HPI, No chest pain, No orthopnea, No PND, No edema, No claudication, No palpitations, No problem reported Breast: No see HPI, No breast lump, No change in shape, No nipple discharge, No breast pain, No problem reported Abdomen: No see HPI, No pain, No nausea, No vomiting, No diarrhea, No constipation, No GI bleeding, No problem reported Musculoskeletal: No see HPI, No joint pain, No muscle pain, No swelling, No calf pain, No problem reported Female : No see HPI, No dysuria, No urinary frequency, No hematuria, No incontinence, No abnormal vaginal bleeding, No vaginal discharge, No problem reported Neurologic: No see HPI, No memory loss, No paralysis, No weakness, No numbness/ tingling, No vertigo, No balance problems, No problem reported Psychiatric: No see HPI, No depression symptoms, No anhedonism, No anxiety, No insomnia, No substance abuse, No problem reported Heme: No see HPI, No abnormal bleeding/bruising, No clotting problems, No swollen lymph nodes, No night sweats, No problem reported Endo: No see HPI, No fatigue, No excessive thirst, No excessive urination, No problem reported Skin: No see HPI, No rash, No itch, No new/changing skin lesions, No color change, No bleeding, No problem reported Objective Vital Signs Date Time Temp Pulse Resp B/P (MAP) Pulse Ox O2 Delivery O2 Flow Rate FiO2 10/11/17 08:00 96 Nasal Cannula 3.0 10/11/17 07:44 36.9 72 20 130/80 (97) 96 3.0 10/11/17 00:00 Nasal Cannula 3.0 10/10/17 23:20 36.7 72 21 149/74 (99) 97 Nasal Cannula 3.0 Physical Exam General Appearance: WD/WN, no apparent distress Eyes: normal inspection, EOMI ENT: normal ENT inspection, hearing grossly normal Neck: supple Respiratory/Chest: chest non-tender, normal breath sounds, no respiratory distress, + crackles Cardiovascular: regular rate, rhythm, no edema, no gallop, no JVD, no murmur Abdomen: normal bowel sounds, non tender, soft, no organomegaly, no pulsatile mass, + distended Extremities: normal range of motion, non-tender, normal inspection, no pedal edema, no calf tenderness 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, no motor/sensory deficits, alert, normal mood/affect, oriented x 3 Skin: normal color, warm/dry, no rash Laboratory Results Last 24 Hours Test 10/10/17 16:24 10/10/17 19:54 10/10/17 20:06 10/11/17 02:00 Bedside Glucose 246 mg/dl 220 mg/dl Activated Partial Thromboplast Time 24.5 SECONDS 55.3 SECONDS Partial Thromboplastin Ratio 0.9 2.1 Test 10/11/17 06:25 10/11/17 07:16 Prothrombin Time 11.3 SECONDS Prothromb Time International Ratio 1.1 Sodium Level 136 mmol/L Potassium Level 4.0 mmol/L Chloride Level 98 mmol/L Carbon Dioxide Level 32 mmol/L Anion Gap 6.0 mmol/L Blood Urea Nitrogen 29 mg/dl Creatinine 1.00 mg/dl Est Creatinine Clear Calc Drug Dose 48.6 ml/min Estimated GFR () 61.6 Estimated GFR (Non- 53.2 BUN/Creatinine Ratio 29.0 Random Glucose 93 mg/dl Calcium Level 9.2 mg/dl Total Bilirubin 0.4 mg/dl Aspartate Amino Transf (AST/SGOT) 14 U/L Alanine Aminotransferase (ALT/SGPT) 37 U/L Alkaline Phosphatase 58 U/L Total Protein 6.6 gm/dl Albumin 3.3 gm/dl Globulin 3.3 gm/dl Albumin/Globulin Ratio 1.0 Bedside Glucose 99 mg/dl Assessment and Plan 82 years old female with chronic hypoxic respiratory failure, COPD on 2 L home oxygen as baseline, recent bilateral DVTs and pulmonary embolism currently on Coumadin, diastolic CHF not in exacerbation. Presented to the hospital with altered mental status, myalgia, worsening cough. SIRS present on admission possibly reactive due to PE Gram-negative pneumonia as detected by bronchoalveolar wash culture Suspected influenza, treated empirically Blood and urine cultures are negative Based on bronchoalveolar lavage cultures and Findings in the bronchoscopy of mucopurulent discharge, she was started on cefepime empirically until cultures come back Empiric Tamiflu Acute and chronic respiratory failure Status post bronchoscopy done by Dr. Matthew 10/09/2017, revealed mucoid impaction in the right middle lobe bronchus and lower lobe, status post appropriate lavage infection. Left lower lobe bronchus field moderate amount of mucopurulent secretions status post lavage. Patient tolerated the procedure well Supportive care - [place] O2, inhalers/nebs prn, etc. Continue steroids and bronchodilators Metabolic encephalopathy, improved, likely was multi factorial as above Rabia intertrigo fluconazole 150 mg PO weekly monday (today is first dose) Nystatin Recent DVT/PE Restart Coumadin and heparin drip T2DM - continue lantus + novolog; BSGs ac/hs. orthostatic hypotension - continue midodrine. chronic diastolic CHF/ not in exacerbation. DVT proph - on coumadin. hypothyroidism - cont synthroid; most recent TSH earlier this month was normal. 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 Slight abdominal distention, will order KUB Continued [facility] stay due to: inadequate oral pain control Discharge planning: uncertain
[2017-10-11] MEDS: LACTOBACILLUS ACIDOPHILUS 1 GM PACK PO SCH (17:09)
[2017-10-11] MEDS: WARFARIN SOD 5 MG TAB PO SCH (17:36)
[2017-10-11] MEDS: HEPARIN 25,000 UNIT/500ML D5W 500 ML IV PRN (17:40)
--- NOTE | 2017-10-11 20:12 | DIAGNOSTIC IMAGING REPORT ---
KUB CLINICAL HISTORY: Abdominal distention. FINDINGS: 3 AP supine abdominal radiographs are correlated with abdominal CT dated 10/02/2017. There is no convincing radiographic evidence of bowel obstruction. There are nonspecific mildly distended loops of small bowel in the midabdomen. There is moderate to severe constipation. No evidence of intraperitoneal free air is seen on the supine images. Surgical clips are noted in the right upper quadrant. Phlebolith are seen in the pelvis. The skeletal structures are osteopenic. Extensive fusion hardware is seen in the thoracolumbar spine. IMPRESSION: 1. There is no convincing radiographic evidence of bowel obstruction. 2. Moderate to severe constipation is noted in the right colon. Electronically signed by: Justo Mejias M.D. 10/11/2017 8:11 PM Dictated Date/Time: 10/11/2017 8:07 PM
[2017-10-11] MEDS: SIMVASTATIN 20 MG TAB PO SCH (21:11)
[2017-10-11] MEDS: CALCIUM CARBONATE 1250MG TAB PO SCH (21:13)
[2017-10-11] MEDS: ROPINIROLE HCL 0.25 MG TAB PO SCH (21:14)
[2017-10-11] MEDS: LORAZEPAM 0.5 MG TAB PO PRN (23:24)
[2017-10-12] MEDS ORDERED: LEVOFLOXACIN / D5W 500 MG in PREMIXED IN D5W 100 ML IV SCH
[2017-10-12 00:19] VITALS: BP 158/90; PULSE 87; TEMP 37; O2SAT 97
[2017-10-12] MEDS: LEVOTHYROXINE 100 MCG TAB PO SCH (06:31)
[2017-10-12 06:45] LABS: HEMATOCRIT 36.2 % (37-47); HEMOGLOBIN 11.7 g/dL (12.0-16.0); MEAN CELL VOLUME 96.3 fL (80-100); MEAN CORPUSCULAR HEMOGLOBIN 31.1 pg (25-34); MEAN CORPUSCULAR HGB CONC 32.3 g/dl (32-36); NUCLEATED RED BLOOD CELL ABS 0.08 K/uL (0-0); PLATELET COUNT 199 K/uL (130-400); RED CELL DISTRIBUTION WIDTH CV 16.3 % (11.5-14.5); RED CELL DISTRIBUTION WIDTH SD 56.9 fL (36.4-46.3); WHITE BLOOD COUNT 11.46 K/uL (4.8-10.8)
[2017-10-12 06:59] LABS: INR 1.3 (0.9-1.1)
[2017-10-12 07:06] LABS: PTT PATIENT 68.8 SECONDS (21.0-31.0)
[2017-10-12 07:16] LABS: ALBUMIN 3.2 gm/dl (3.4-5.0); CALCIUM 9.4 mg/dl (8.5-10.1); CREATININE 0.94 mg/dl (0.60-1.20); POTASSIUM 4.5 mmol/L (3.5-5.1)
[2017-10-12 07:19] LABS: TOTAL PROTEIN 6.4 gm/dl (6.4-8.2)
[2017-10-12 07:23] VITALS: BP 128/91; PULSE 88; TEMP 36.8; O2SAT 96
[2017-10-12 07:25] LABS: BASO % 0.2 %; BASO ABS # 0.02 K/uL (0-0.2); EOS % 0.1 %; EOS ABS # 0.01 K/uL (0-0.5); IG# 0.77 K/uL (0.00-0.02); LYMPH % 13.6 %; LYMPH ABS # 1.56 K/uL (1.2-3.4); MONO % 7.5 %; MONO ABS # 0.86 K/uL (0.11-0.59); NEUT % 71.9 %; NEUT ABS # 8.24 K/uL (1.4-6.5)
[2017-10-12 08:00] VITALS: O2SAT 96
[2017-10-12] MEDS: IPRATROPIUM BROMIDE/ALBUTEROL respimat INH INH SCH ×4 (08:00→21:23)
[2017-10-12] MEDS: TIOTROPIUM BROMIDE 5 PUFF/90 MCG INH INH SCH (08:00)
[2017-10-12] MEDS: NYSTATIN POWDER 15GM BTL EXT SCH ×3 (08:00→21:31)
[2017-10-12] MEDS: FERROUS SULFATE 325 MG TAB PO SCH (08:01)
[2017-10-12] MEDS: TRAMADOL HCL 50 MG TAB PO SCH ×4 (08:01→21:22)
[2017-10-12] MEDS: CYANOCOBALAMIN 500 MCG TAB (VIT B-12) PO SCH (08:01)
[2017-10-12] MEDS: CHOLECALCIFEROL 1000 INTER.UNIT TAB PO SCH ×2 (08:01→21:25)
[2017-10-12] MEDS: GABAPENTIN 300 MG CAP PO SCH ×2 (08:01→21:23)
[2017-10-12] MEDS: CITALOPRAM 20 MG TAB PO SCH (08:01)
[2017-10-12] MEDS: CALCITRIOL 0.25 MCG CAP PO SCH (08:01)
[2017-10-12] MEDS: POTASSIUM CHLORIDE 10 MEQ TABCR PO SCH ×2 (08:02→21:23)
[2017-10-12] MEDS: MIDODRINE 2.5 MG TAB PO SCH ×3 (08:02→18:47)
[2017-10-12] MEDS: LACTOBACILLUS ACIDOPHILUS 1 GM PACK PO SCH ×3 (08:02→18:49)
[2017-10-12] MEDS: PANTOprazole SOD 40 MG TAB PO SCH (08:02)
[2017-10-12] MEDS: SPIRONOLACTONE 25 MG TAB PO SCH ×2 (08:03→18:48)
[2017-10-12] MEDS: BOOST GLUCOSE CONTROL PO SCH ×2 (09:47→21:22)
[2017-10-12] MEDS: INSULIN ASPART 100 UNITS/ML 3 ML PEN SC SCH ×4 (09:52→21:29)
[2017-10-12] MEDS: INSULIN GLARGINE SOLOSTAR 100 UNITS/ML 3 ML PEN SC SCH (09:52)
[2017-10-12] MEDS: CEFEPIME IV 2,000 MG in SYRINGE 7.5 ML IV SCH ×2 (12:30→23:33)
[2017-10-12 15:45] VITALS: BP 142/57; PULSE 97; TEMP 36.9; O2SAT 95
[2017-10-12] MEDS: HEPARIN 25,000 UNIT/500ML D5W 500 ML IV PRN (17:21)
--- NOTE | 2017-10-12 17:31 | Progress Note ---
Subjective Date of Service: Oct 12, 2017. Subjective Pt evaluation today including: conversation w/ patient, physical exam, chart review, lab review, review of inpatient medication list Problem List Medical Problems: (1) Cervical strain Status: Acute (2) Fall Status: Acute (3) Fatigue Status: Acute (4) Head injury Status: Acute (5) Head injury Status: Acute (6) Hip pain Status: Acute (7) Hypocalcemia Status: Acute (8) Hypoxia Status: Acute (9) Hypoxia Status: Acute (10) Lower extremity edema Status: Acute (11) PNA (pneumonia) Status: Acute (12) Pneumonia Status: Acute (13) Reactive airway disease Status: Acute (14) Right flank pain Status: Acute (15) Sepsis Status: Acute (16) Sepsis Status: Acute (17) Syncope Status: Acute (18) Traumatic compression fracture of third thoracic vertebra Status: Acute (19) Weakness Status: Acute Review of Systems Constitutional: No see HPI, No fever, No chills, No sweats, No weight loss, No weakness, No fatigue, No problem reported Eyes: No see HPI, No worsening of vision, No eye pain, No redness, No discharge , No diplopia, No problem reported ENT: No see HPI, No hearing loss, No unusual epistaxis, No nasal symptoms, No sore throat, No tinnitus, No dental problems, No trouble swallowing, No problem reported Respiratory: + shortness of breath, No see HPI, No cough, No sputum, No wheezing, No dyspnea on exertion, No dyspnea at rest, No hemoptysis, No problem reported Cardiac: No see HPI, No chest pain, No orthopnea, No PND, No edema, No claudication, No palpitations, No problem reported Abdomen: No see HPI, No pain, No nausea, No vomiting, No diarrhea, No constipation, No GI bleeding, No problem reported Musculoskeletal: No see HPI, No joint pain, No muscle pain, No swelling, No calf pain, No problem reported Female : No see HPI, No dysuria, No urinary frequency, No hematuria, No incontinence, No abnormal vaginal bleeding, No vaginal discharge, No problem reported Neurologic: No see HPI, No memory loss, No paralysis, No weakness, No numbness/ tingling, No vertigo, No balance problems, No problem reported Psychiatric: No see HPI, No depression symptoms, No anhedonism, No anxiety, No insomnia, No substance abuse, No problem reported Heme: No see HPI, No abnormal bleeding/bruising, No clotting problems, No swollen lymph nodes, No night sweats, No problem reported Endo: No see HPI, No fatigue, No excessive thirst, No excessive urination, No problem reported Skin: No see HPI, No rash, No itch, No new/changing skin lesions, No color change, No bleeding, No problem reported Objective Vital Signs Date Time Temp Pulse Resp B/P (MAP) Pulse Ox O2 Delivery O2 Flow Rate FiO2 10/12/17 16:00 Nasal Cannula 3.0 10/12/17 15:45 36.9 97 22 142/57 (85) 95 Nasal Cannula 3.0 10/12/17 08:00 96 Nasal Cannula 3.0 10/12/17 07:23 36.8 88 18 128/91 (103) 96 2.0 10/12/17 02:50 Nasal Cannula 3.0 10/12/17 00:19 37.0 87 20 158/90 (112) 97 3.0 Physical Exam General Appearance: WD/WN, + mild distress Eyes: normal inspection, EOMI ENT: normal ENT inspection, hearing grossly normal Neck: supple Respiratory/Chest: chest non-tender, + decreased breath sounds, + crackles Cardiovascular: regular rate, rhythm, no edema, no gallop, no JVD, no murmur Abdomen: normal bowel sounds, non tender, soft, no organomegaly, no pulsatile mass Extremities: normal range of motion, non-tender, normal inspection, no pedal edema, no calf tenderness 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, no motor/sensory deficits, alert, normal mood/affect, oriented x 3 Skin: normal color, warm/dry, no rash Laboratory Results Last 24 Hours Test 10/11/17 20:12 10/12/17 06:09 10/12/17 07:22 Bedside Glucose 240 mg/dl 152 mg/dl White Blood Count 11.46 K/uL Red Blood Count 3.76 M/uL Hemoglobin 11.7 g/dL Hematocrit 36.2 % Mean Corpuscular Volume 96.3 fL Mean Corpuscular Hemoglobin 31.1 pg Mean Corpuscular Hemoglobin Concent 32.3 g/dl Platelet Count 199 K/uL Mean Platelet Volume 11.0 fL Neutrophils (%) (Auto) 71.9 % Lymphocytes (%) (Auto) 13.6 % Monocytes (%) (Auto) 7.5 % Eosinophils (%) (Auto) 0.1 % Basophils (%) (Auto) 0.2 % Neutrophils # (Auto) 8.24 K/uL Lymphocytes # (Auto) 1.56 K/uL Monocytes # (Auto) 0.86 K/uL Eosinophils # (Auto) 0.01 K/uL Basophils # (Auto) 0.02 K/uL RDW Standard Deviation 56.9 fL RDW Coefficient of Variation 16.3 % Immature Granulocyte % (Auto) 6.7 % Immature Granulocyte # (Auto) 0.77 K/uL Nucleated RBC Absolute Count (auto) 0.08 K/uL Nucleated Red Blood Cells % 0.7 % Tear Drop Cells 1+ Prothrombin Time 13.4 SECONDS Prothromb Time International Ratio 1.3 Activated Partial Thromboplast Time 68.8 SECONDS Partial Thromboplastin Ratio 2.6 Sodium Level 135 mmol/L Potassium Level 4.5 mmol/L Chloride Level 98 mmol/L Carbon Dioxide Level 29 mmol/L Anion Gap 8.0 mmol/L Blood Urea Nitrogen 30 mg/dl Creatinine 0.94 mg/dl Est Creatinine Clear Calc Drug Dose 52.1 ml/min Estimated GFR () 66.4 Estimated GFR (Non- 57.3 BUN/Creatinine Ratio 32.3 Random Glucose 158 mg/dl Calcium Level 9.4 mg/dl Magnesium Level 2.0 mg/dl Total Bilirubin 0.4 mg/dl Aspartate Amino Transf (AST/SGOT) 16 U/L Alanine Aminotransferase (ALT/SGPT) 41 U/L Alkaline Phosphatase 56 U/L Total Protein 6.4 gm/dl Albumin 3.2 gm/dl Globulin 3.2 gm/dl Albumin/Globulin Ratio 1.0 Assessment and Plan 82 years old female with chronic hypoxic respiratory failure, COPD on 2 L home oxygen as baseline, recent bilateral DVTs and pulmonary embolism currently on Coumadin, diastolic CHF not in exacerbation. Presented to the hospital with altered mental status, myalgia, worsening cough. Sepsis on admission secondary to multilobar pneumonia Gram-negative pneumonia as detected by bronchoalveolar wash culture Suspected influenza, treated empirically Blood and urine cultures are negative Based on bronchoalveolar lavage cultures and Findings in the bronchoscopy of mucopurulent discharge, she was started on cefepime / levofloxacin empirically until cultures come back Empiric Tamiflu Acute and chronic respiratory failure Status post bronchoscopy done by Dr. Matthew 10/09/2017, revealed mucoid impaction in the right middle lobe bronchus and lower lobe, status post appropriate lavage infection. Left lower lobe bronchus field moderate amount of mucopurulent secretions status post lavage. Patient tolerated the procedure well Supportive care - [place] O2, inhalers/nebs prn, etc. Continue steroids and bronchodilators Tapered down prednisone slowly Metabolic encephalopathy, improved, likely was multi factorial as above Rabia intertrigo fluconazole 150 mg PO weekly monday (today is first dose) Nystatin Recent DVT/PE Restart Coumadin and heparin drip T2DM - continue lantus + novolog; BSGs ac/hs. orthostatic hypotension - continue midodrine. chronic diastolic CHF/ not in exacerbation. DVT proph - on coumadin. hypothyroidism - cont synthroid; most recent TSH earlier this month was normal. 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 Slight abdominal distention, will order KUB Continued [facility] stay due to: inadequate oral pain control Discharge planning: uncertain
[2017-10-12] MEDS: WARFARIN SOD 5 MG TAB PO SCH (18:47)
[2017-10-12] MEDS: SIMVASTATIN 20 MG TAB PO SCH (21:24)
[2017-10-12] MEDS: CALCIUM CARBONATE 1250MG TAB PO SCH (21:25)
[2017-10-12] MEDS: ROPINIROLE HCL 0.25 MG TAB PO SCH (21:26)
[2017-10-12 23:01] VITALS: BP 156/78; PULSE 95; TEMP 36.7; O2SAT 96
[2017-10-12] MEDS: LORAZEPAM 0.5 MG TAB PO PRN (23:33)
[2017-10-13] MEDS ORDERED: LEVOFLOXACIN 500MG / D5W IV SCH (05:00)
[2017-10-13] MEDS: LEVOTHYROXINE 100 MCG TAB PO SCH (05:22)
[2017-10-13 06:57] LABS: HEMOGLOBIN 11.2 g/dL (12.0-16.0); MEAN CELL VOLUME 95.4 fL (80-100); MEAN CORPUSCULAR HEMOGLOBIN 30.5 pg (25-34); MEAN PLATELET VOLUME 10.7 fL (7.4-10.4); NUCLEATED RED BLOOD CELL ABS 0.07 K/uL (0-0); PLATELET COUNT 208 K/uL (130-400); RED CELL DISTRIBUTION WIDTH CV 16.4 % (11.5-14.5); RED CELL DISTRIBUTION WIDTH SD 56.7 fL (36.4-46.3); WHITE BLOOD COUNT 11.02 K/uL (4.8-10.8)
[2017-10-13 07:09] VITALS: BP 140/74; PULSE 82; TEMP 36.8; O2SAT 97
[2017-10-13 07:09] LABS: INR 1.6 (0.9-1.1)
[2017-10-13 07:14] LABS: PTT PATIENT 77.2 SECONDS (21.0-31.0)
[2017-10-13] MEDS: HEPARIN 25,000 UNIT/500ML D5W 500 ML IV PRN ×2 (07:30→16:00)
[2017-10-13 07:32] LABS: ALBUMIN 3.1 gm/dl (3.4-5.0); CALCIUM 9.2 mg/dl (8.5-10.1); CREATININE 0.85 mg/dl (0.60-1.20); POTASSIUM 4.4 mmol/L (3.5-5.1)
[2017-10-13 07:35] LABS: TOTAL PROTEIN 6.5 gm/dl (6.4-8.2)
[2017-10-13 08:00] VITALS: O2SAT 96
[2017-10-13] MEDS: NYSTATIN POWDER 15GM BTL EXT SCH ×3 (08:04→21:05)
[2017-10-13] MEDS: GABAPENTIN 300 MG CAP PO SCH ×2 (08:04→21:01)
[2017-10-13] MEDS: IPRATROPIUM BROMIDE/ALBUTEROL respimat INH INH SCH ×4 (08:04→21:03)
[2017-10-13] MEDS: FERROUS SULFATE 325 MG TAB PO SCH (08:05)
[2017-10-13] MEDS: CYANOCOBALAMIN 500 MCG TAB (VIT B-12) PO SCH (08:05)
[2017-10-13] MEDS: CHOLECALCIFEROL 1000 INTER.UNIT TAB PO SCH ×2 (08:05→21:02)
[2017-10-13] MEDS: CITALOPRAM 20 MG TAB PO SCH (08:06)
[2017-10-13] MEDS: PANTOprazole SOD 40 MG TAB PO SCH (08:07)
[2017-10-13] MEDS: MIDODRINE 2.5 MG TAB PO SCH ×3 (08:08→17:05)
[2017-10-13] MEDS: LACTOBACILLUS ACIDOPHILUS 1 GM PACK PO SCH ×3 (08:08→16:55)
[2017-10-13] MEDS: POTASSIUM CHLORIDE 10 MEQ TABCR PO SCH ×2 (08:08→21:00)
[2017-10-13] MEDS: CALCITRIOL 0.25 MCG CAP PO SCH (08:09)
[2017-10-13] MEDS: SPIRONOLACTONE 25 MG TAB PO SCH ×2 (08:09→17:01)
[2017-10-13] MEDS: INSULIN ASPART 100 UNITS/ML 3 ML PEN SC SCH ×4 (08:20→21:04)
[2017-10-13] MEDS: INSULIN GLARGINE SOLOSTAR 100 UNITS/ML 3 ML PEN SC SCH (08:21)
[2017-10-13] MEDS: TIOTROPIUM BROMIDE 5 PUFF/90 MCG INH INH SCH (08:28)
[2017-10-13] MEDS: TRAMADOL HCL 50 MG TAB PO SCH ×4 (08:33→21:12)
[2017-10-13] MEDS: BOOST GLUCOSE CONTROL PO SCH ×2 (10:00→21:00)
[2017-10-13] MEDS: CEFEPIME IV 2,000 MG in SYRINGE 7.5 ML IV SCH ×2 (11:31→23:19)
[2017-10-13 12:21] VITALS: BP 157/83; PULSE 80
[2017-10-13 14:21] LABS: PTT PATIENT 68.1 SECONDS (21.0-31.0)
[2017-10-13 14:46] VITALS: BP 145/74; PULSE 93; TEMP 36.4; O2SAT 94
[2017-10-13] MEDS: WARFARIN SOD 5 MG TAB PO SCH (17:03)
--- NOTE | 2017-10-13 17:07 | Progress Note ---
Subjective Date of Service: Oct 13, 2017. Subjective Pt evaluation today including: conversation w/ patient, physical exam, chart review, lab review, review of inpatient medication list Pain: controlled PO Intake: adequate Voiding: no voiding problems Discussed anticoagulation with her daughter Delores, who agreed to changing her anticoagulation to Eliquis Problem List Medical Problems: (1) Cervical strain Status: Acute (2) Fall Status: Acute (3) Fatigue Status: Acute (4) Head injury Status: Acute (5) Head injury Status: Acute (6) Hip pain Status: Acute (7) Hypocalcemia Status: Acute (8) Hypoxia Status: Acute (9) Hypoxia Status: Acute (10) Lower extremity edema Status: Acute (11) PNA (pneumonia) Status: Acute (12) Pneumonia Status: Acute (13) Reactive airway disease Status: Acute (14) Right flank pain Status: Acute (15) Sepsis Status: Acute (16) Sepsis Status: Acute (17) Syncope Status: Acute (18) Traumatic compression fracture of third thoracic vertebra Status: Acute (19) Weakness Status: Acute Review of Systems Constitutional: + weakness, + fatigue, No see HPI, No fever, No chills, No sweats, No weight loss, No problem reported Eyes: No see HPI, No worsening of vision, No eye pain, No redness, No discharge , No diplopia, No problem reported ENT: No see HPI, No hearing loss, No unusual epistaxis, No nasal symptoms, No sore throat, No tinnitus, No dental problems, No trouble swallowing, No problem reported Respiratory: + cough, + shortness of breath, No see HPI, No sputum, No wheezing , No dyspnea on exertion, No dyspnea at rest, No hemoptysis, No problem reported Cardiac: No see HPI, No chest pain, No orthopnea, No PND, No edema, No claudication, No palpitations, No problem reported Breast: No see HPI, No breast lump, No change in shape, No nipple discharge, No breast pain, No problem reported Abdomen: No see HPI, No pain, No nausea, No vomiting, No diarrhea, No constipation, No GI bleeding, No problem reported Musculoskeletal: No see HPI, No joint pain, No muscle pain, No swelling, No calf pain, No problem reported Female : No see HPI, No dysuria, No urinary frequency, No hematuria, No incontinence, No abnormal vaginal bleeding, No vaginal discharge, No problem reported Neurologic: No see HPI, No memory loss, No paralysis, No weakness, No numbness/ tingling, No vertigo, No balance problems, No problem reported Heme: No see HPI, No abnormal bleeding/bruising, No clotting problems, No swollen lymph nodes, No night sweats, No problem reported Endo: No see HPI, No fatigue, No excessive thirst, No excessive urination, No problem reported Objective Vital Signs Date Time Temp Pulse Resp B/P (MAP) Pulse Ox O2 Delivery O2 Flow Rate FiO2 10/13/17 16:07 Nasal Cannula 3.0 10/13/17 14:46 36.4 93 20 145/74 (97) 94 Nasal Cannula 2.0 10/13/17 12:21 80 157/83 (107) 10/13/17 11:59 Nasal Cannula 3.0 10/13/17 08:00 96 Nasal Cannula 3.0 10/13/17 07:09 36.8 82 22 140/74 (96) 97 Nasal Cannula 2.0 10/13/17 00:00 Nasal Cannula 3.0 10/12/17 23:01 36.7 95 24 156/78 (104) 96 Nasal Cannula 3.0 Physical Exam General Appearance: no apparent distress, + obese Eyes: normal inspection, EOMI ENT: normal ENT inspection, hearing grossly normal Neck: supple Respiratory/Chest: chest non-tender, + decreased breath sounds, + crackles Cardiovascular: regular rate, rhythm, no edema, no gallop, no JVD, no murmur Abdomen: normal bowel sounds, non tender, soft, no organomegaly, no pulsatile mass Extremities: normal range of motion, non-tender, normal inspection, no pedal edema Neurologic/Psychiatric: broadcast correspondent II-XII nml as tested, no motor/sensory deficits, alert, normal mood/affect, oriented x 3 Skin: normal color, warm/dry, no rash Laboratory Results Last 24 Hours Test 10/12/17 20:25 10/13/17 06:23 10/13/17 07:20 10/13/17 11:23 Bedside Glucose 236 mg/dl 146 mg/dl 103 mg/dl White Blood Count 11.02 K/uL Red Blood Count 3.67 M/uL Hemoglobin 11.2 g/dL Hematocrit 35.0 % Mean Corpuscular Volume 95.4 fL Mean Corpuscular Hemoglobin 30.5 pg Mean Corpuscular Hemoglobin Concent 32.0 g/dl Platelet Count 208 K/uL Mean Platelet Volume 10.7 fL RDW Standard Deviation 56.7 fL RDW Coefficient of Variation 16.4 % Nucleated RBC Absolute Count (auto) 0.07 K/uL Neutrophils % (Manual) 81.2 % Lymphocytes % (Manual) 7.1 % Monocytes % (Manual) 5.4 % Eosinophils % (Manual) 0.9 % Metamyelocytes % 2.7 % Myelocytes % 2.7 % Nucleated Red Blood Cells % 0.6 % Neutrophils # (Manual) 8.95 K/uL Total Absolute Neutrophils 8.95 K/uL Lymphocytes # (Manual) 0.78 K/uL Total Absolute Lymphocytes 0.78 K/uL Monocytes # (Manual) 0.60 K/uL Eosinophils # (Manual) 0.10 K/uL Metamyelocytes # 0.30 K/uL Myelocytes # 0.30 K/uL Red Blood Cell Morphology Unremarkable Prothrombin Time 16.4 SECONDS Prothromb Time International Ratio 1.6 Activated Partial Thromboplast Time 77.2 SECONDS Partial Thromboplastin Ratio 3.0 Sodium Level 136 mmol/L Potassium Level 4.4 mmol/L Chloride Level 100 mmol/L Carbon Dioxide Level 30 mmol/L Anion Gap 6.0 mmol/L Blood Urea Nitrogen 24 mg/dl Creatinine 0.85 mg/dl Est Creatinine Clear Calc Drug Dose 56.7 ml/min Estimated GFR () 75.0 Estimated GFR (Non- 64.7 BUN/Creatinine Ratio 28.4 Random Glucose 132 mg/dl Calcium Level 9.2 mg/dl Magnesium Level 2.0 mg/dl Total Bilirubin 0.4 mg/dl Aspartate Amino Transf (AST/SGOT) 18 U/L Alanine Aminotransferase (ALT/SGPT) 42 U/L Alkaline Phosphatase 57 U/L Total Protein 6.5 gm/dl Albumin 3.1 gm/dl Globulin 3.4 gm/dl Albumin/Globulin Ratio 0.9 Test 10/13/17 13:49 Activated Partial Thromboplast Time 68.1 SECONDS Partial Thromboplastin Ratio 2.6 Assessment and Plan 82 years old female with chronic hypoxic respiratory failure, COPD on 2 L home oxygen as baseline, recent bilateral DVTs and pulmonary embolism currently on Coumadin, diastolic CHF not in exacerbation. Presented to the hospital with altered mental status, myalgia, worsening cough. Sepsis on admission secondary to multilobar pneumonia Gram-negative pneumonia as detected by bronchoalveolar wash culture Suspected influenza, treated empirically Blood and urine cultures are negative Based on bronchoalveolar lavage cultures and Findings in the bronchoscopy of mucopurulent discharge, she was started on cefepime / levofloxacin empirically until cultures come back S/P Empiric Tamiflu Acute and chronic respiratory failure, improved Status post bronchoscopy done by Dr. Matthew 10/09/2017, revealed mucoid impaction in the right middle lobe bronchus and lower lobe, status post appropriate lavage infection. Left lower lobe bronchus field moderate amount of mucopurulent secretions status post lavage. Patient tolerated the procedure well Supportive care - NC O2, inhalers/nebs prn, etc. Continue steroids and bronchodilators Tapered down steroids slowly Metabolic encephalopathy, improved, likely was multi factorial as above Rabia intertrigo fluconazole 150 mg PO weekly Monday x 3 doses ( received first dose 10/07) Nystatin Recent DVT/PE DC Coumadin and heparin drip start Eliquis T2DM - continue lantus + novolog; BSGs ac/hs. orthostatic hypotension - continue midodrine. chronic diastolic CHF/ not in exacerbation. DVT proph - on coumadin. hypothyroidism - cont synthroid; most recent TSH earlier this month was normal. 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 Slight abdominal distention, will order KUB Continued [facility] stay due to: inadequate oral pain control Discharge planning: uncertain
[2017-10-13 17:16] VITALS: PULSE 67; O2SAT 98
[2017-10-13] MEDS: ALBUT/IPRATROP 3MG/0.5MG NEB 3 ML VIAL INH PRN (17:16)
[2017-10-13] MEDS: APIXABAN 2.5 MG TAB PO SCH (18:51)
[2017-10-13] MEDS ORDERED: LEVALBUTEROL/IPRATROPIUM NEB INH SCH (20:00)
[2017-10-13] MEDS: SIMVASTATIN 20 MG TAB PO SCH (21:01)
[2017-10-13] MEDS: ROPINIROLE HCL 0.25 MG TAB PO SCH (21:02)
[2017-10-13] MEDS: CALCIUM CARBONATE 1250MG TAB PO SCH (21:02)
[2017-10-13 23:01] VITALS: BP 145/70; PULSE 89; TEMP 36.5; O2SAT 95
[2017-10-13] MEDS: IPRATROPIUM BROMIDE NEB SOLN 0.02% 2.5 ML VIAL INH SCH (23:37)
[2017-10-13] MEDS: LEVALBUTEROL 0.63MG/3 ML NEB INH SCH (23:37)
[2017-10-14] VITALS (10 sets, daily range): BP systolic 126–133; BP diastolic 67–71; PULSE 66–90; TEMP 36.5–36.7; O2SAT 92–98
[2017-10-14] MEDS: LEVOTHYROXINE 100 MCG TAB PO SCH (06:25)
[2017-10-14] MEDS: LEVALBUTEROL 0.63MG/3 ML NEB INH SCH ×3 (07:50→19:11)
[2017-10-14] MEDS: IPRATROPIUM BROMIDE NEB SOLN 0.02% 2.5 ML VIAL INH SCH ×3 (07:50→19:11)
[2017-10-14 07:59] LABS: HEMOGLOBIN 11.2 g/dL (12.0-16.0); MEAN CELL VOLUME 98.3 fL (80-100); MEAN CORPUSCULAR HEMOGLOBIN 31.5 pg (25-34); MEAN PLATELET VOLUME 10.6 fL (7.4-10.4); NUCLEATED RED BLOOD CELL ABS 0.06 K/uL (0-0); PLATELET COUNT 198 K/uL (130-400); RED CELL DISTRIBUTION WIDTH CV 16.7 % (11.5-14.5); RED CELL DISTRIBUTION WIDTH SD 60.1 fL (36.4-46.3); WHITE BLOOD COUNT 8.61 K/uL (4.8-10.8)
[2017-10-14] MEDS ORDERED: LEVOFLOXACIN 500 MG TAB PO SCH (08:00)
[2017-10-14] MEDS ORDERED: PREDNISONE PO SCH ×2 (08:00)
[2017-10-14 08:08] LABS: INR 1.9 (0.9-1.1); PTT PATIENT 29.5 SECONDS (21.0-31.0)
[2017-10-14 08:29] LABS: ALBUMIN 3.1 gm/dl (3.4-5.0); CALCIUM 9.6 mg/dl (8.5-10.1); CREATININE 0.86 mg/dl (0.60-1.20); POTASSIUM 4.5 mmol/L (3.5-5.1)
[2017-10-14 08:32] LABS: TOTAL PROTEIN 6.2 gm/dl (6.4-8.2)
[2017-10-14 08:37] LABS: BASO % 0.3 %; BASO ABS # 0.03 K/uL (0-0.2); EOS % 0.2 %; EOS ABS # 0.02 K/uL (0-0.5); IG# 0.62 K/uL (0.00-0.02); LYMPH % 14.6 %; LYMPH ABS # 1.26 K/uL (1.2-3.4); MONO % 11.5 %; MONO ABS # 0.99 K/uL (0.11-0.59); NEUT % 66.2 %; NEUT ABS # 5.69 K/uL (1.4-6.5)
[2017-10-14] MEDS: INSULIN GLARGINE SOLOSTAR 100 UNITS/ML 3 ML PEN SC SCH (09:07)
[2017-10-14] MEDS: IPRATROPIUM BROMIDE/ALBUTEROL respimat INH INH SCH ×4 (09:10→20:49)
[2017-10-14] MEDS: INSULIN ASPART 100 UNITS/ML 3 ML PEN SC SCH ×4 (09:10→21:01)
[2017-10-14] MEDS: NYSTATIN POWDER 15GM BTL EXT SCH ×3 (09:10→21:02)
[2017-10-14] MEDS: TIOTROPIUM BROMIDE 5 PUFF/90 MCG INH INH SCH (09:11)
[2017-10-14] MEDS: CITALOPRAM 20 MG TAB PO SCH (09:12)
[2017-10-14] MEDS: APIXABAN 2.5 MG TAB PO SCH ×2 (09:14→20:55)
[2017-10-14] MEDS: FERROUS SULFATE 325 MG TAB PO SCH (09:14)
[2017-10-14] MEDS: LACTOBACILLUS ACIDOPHILUS 1 GM PACK PO SCH ×3 (09:15→17:09)
[2017-10-14] MEDS: POTASSIUM CHLORIDE 10 MEQ TABCR PO SCH ×2 (09:15→20:51)
[2017-10-14] MEDS: PANTOprazole SOD 40 MG TAB PO SCH (09:16)
[2017-10-14] MEDS: MIDODRINE 2.5 MG TAB PO SCH ×3 (09:16→18:11)
[2017-10-14] MEDS: GABAPENTIN 300 MG CAP PO SCH ×2 (09:17→20:49)
[2017-10-14] MEDS: CALCITRIOL 0.25 MCG CAP PO SCH (09:17)
[2017-10-14] MEDS: TRAMADOL HCL 50 MG TAB PO SCH ×4 (09:20→21:02)
[2017-10-14] MEDS: CHOLECALCIFEROL 1000 INTER.UNIT TAB PO SCH ×2 (09:21→20:50)
[2017-10-14] MEDS: CYANOCOBALAMIN 500 MCG TAB (VIT B-12) PO SCH (09:21)
[2017-10-14] MEDS: SPIRONOLACTONE 25 MG TAB PO SCH ×2 (09:21→17:10)
[2017-10-14] MEDS: BOOST GLUCOSE CONTROL PO SCH ×3 (09:56→20:55)
[2017-10-14] MEDS: CEFEPIME IV 2,000 MG in SYRINGE 7.5 ML IV SCH (11:51)
[2017-10-14] MEDS: SIMVASTATIN 20 MG TAB PO SCH (20:49)
[2017-10-14] MEDS: ROPINIROLE HCL 0.25 MG TAB PO SCH (20:53)
[2017-10-14] MEDS: CALCIUM CARBONATE 1250MG TAB PO SCH (20:54)
[2017-10-14] MEDS ORDERED: PIPERACILL/TAZOBAC CONSULT ACTIVE PRN (21:15)
[2017-10-14] MEDS ORDERED: PIPERACILL/TAZOBAC IV 4.5 GM in DEXTROSE 5% 100ML 100 ML IV SCH (21:15)
[2017-10-14] MEDS ORDERED: PIPERACILL/TAZOBAC IV 4.5 GM in DEXTROSE 5% 100ML IV ONE (21:30)
[2017-10-14] MEDS ORDERED: LEVOFLOXACIN / D5W 500 MG in PREMIXED IN D5W 100 ML IV SCH (23:00)
--- NOTE | 2017-10-14 23:31 | Hospitalist Progress Note ---
Hospitalist Progress Note Date of Service Oct 14, 2017. Subjective Pt evaluation today including: conversation w/ patient Pt feels tired, was out of bed to chair a lot today. Still feels SOB. Is eating and moving bowels. All Other Systems: Reviewed and Negative Objective Vital Signs Date Time Temp Pulse Resp B/P (MAP) Pulse Ox O2 Delivery O2 Flow Rate FiO2 10/14/17 23:13 36.6 76 18 133/71 (91) 97 Nasal Cannula 4.0 10/14/17 20:00 94 Nasal Cannula 4.0 10/14/17 19:11 81 16 93 Nasal Cannula 4.0 10/14/17 16:00 94 Nasal Cannula 4.0 10/14/17 15:07 36.7 87 20 126/67 (86) 94 Nasal Cannula 4.0 10/14/17 14:19 90 16 92 Nasal Cannula 4.0 10/14/17 08:00 97 Nasal Cannula 4.0 10/14/17 07:52 66 16 97 Nasal Cannula 4.0 10/14/17 07:03 36.5 82 18 133/70 (91) 97 Nasal Cannula 4.0 10/14/17 00:00 98 Nasal Cannula 4.0 Physical Exam General Appearance: WD/WN, no apparent distress, + obese Eyes: normal inspection, sclerae normal ENT: hearing grossly normal, pharynx normal Neck: trachea midline Respiratory/Chest: lungs clear, normal breath sounds, no respiratory distress, no accessory muscle use Cardiovascular: regular rate, rhythm, no gallop, no murmur, + pertinent finding (trace pitting edema legs bilat) Abdomen: normal bowel sounds, non tender, soft Extremities: no calf tenderness Neurologic/Psychiatric: alert, + depressed affect Skin: normal color, warm/dry, no rash Laboratory Results Last 24 Hours Test 10/14/17 07:11 10/14/17 07:42 10/14/17 11:31 10/14/17 16:32 White Blood Count 8.61 K/uL Red Blood Count 3.56 M/uL Hemoglobin 11.2 g/dL Hematocrit 35.0 % Mean Corpuscular Volume 98.3 fL Mean Corpuscular Hemoglobin 31.5 pg Mean Corpuscular Hemoglobin Concent 32.0 g/dl Platelet Count 198 K/uL Mean Platelet Volume 10.6 fL Neutrophils (%) (Auto) 66.2 % Lymphocytes (%) (Auto) 14.6 % Monocytes (%) (Auto) 11.5 % Eosinophils (%) (Auto) 0.2 % Basophils (%) (Auto) 0.3 % Neutrophils # (Auto) 5.69 K/uL Lymphocytes # (Auto) 1.26 K/uL Monocytes # (Auto) 0.99 K/uL Eosinophils # (Auto) 0.02 K/uL Basophils # (Auto) 0.03 K/uL RDW Standard Deviation 60.1 fL RDW Coefficient of Variation 16.7 % Immature Granulocyte % (Auto) 7.2 % Immature Granulocyte # (Auto) 0.62 K/uL Nucleated RBC Absolute Count (auto) 0.06 K/uL Nucleated Red Blood Cells % 0.6 % Basophilic Stippling 1+ Tear Drop Cells 1+ Prothrombin Time 19.2 SECONDS Prothromb Time International Ratio 1.9 Activated Partial Thromboplast Time 29.5 SECONDS Partial Thromboplastin Ratio 1.1 Sodium Level 138 mmol/L Potassium Level 4.5 mmol/L Chloride Level 99 mmol/L Carbon Dioxide Level 33 mmol/L Anion Gap 5.0 mmol/L Blood Urea Nitrogen 22 mg/dl Creatinine 0.86 mg/dl Est Creatinine Clear Calc Drug Dose 55.9 ml/min Estimated GFR () 73.9 Estimated GFR (Non- 63.8 BUN/Creatinine Ratio 26.2 Random Glucose 89 mg/dl Calcium Level 9.6 mg/dl Total Bilirubin 0.4 mg/dl Aspartate Amino Transf (AST/SGOT) 13 U/L Alanine Aminotransferase (ALT/SGPT) 37 U/L Alkaline Phosphatase 45 U/L Total Protein 6.2 gm/dl Albumin 3.1 gm/dl Globulin 3.1 gm/dl Albumin/Globulin Ratio 1.0 Bedside Glucose 123 mg/dl 102 mg/dl 216 mg/dl Test 10/14/17 20:09 Bedside Glucose 216 mg/dl Assessment and Plan This pt is an 82 year old female with chronic hypoxic respiratory failure, COPD on 2 L home oxygen as baseline, recent bilateral DVTs and pulmonary embolism currently on Coumadin, chronic diastolic CHF vs venous insufficiency/LE edema, hypothyroidism, steroid-induced myopathy, DMII, orthostatic hypotension, and CKD stage II-III. Presented to the hospital with altered mental status, myalgia , worsening cough, and acute on chronic hypoxemic respiratory failure with multilobar PNA. Sepsis on admission secondary to multilobar pneumonia - underwent Bronchoscopy with BAL on 10/09. Improved Gram-negative pneumonia as detected by bronchoalveolar wash culture--> growing out Bordetella bronchoseptica, sensitive to Levaquin Suspected influenza on admission despite neg rapid flu swab, treated empirically with five days of Tamiflu Blood and urine cultures are negative Based on bronchoalveolar lavage cultures and Findings in the bronchoscopy of mucopurulent discharge, she was started on cefepime / levofloxacin empirically - -> consult ID to see about treatment length and implications of Bordetella PNA -can likely dc Cefepime, but will await ID opinion Acute and chronic respiratory failure, improved Status post bronchoscopy done by Dr. Matthew 10/09/2017, revealed mucoid impaction in the right middle lobe bronchus and lower lobe, status post appropriate lavage infection. Left lower lobe bronchus field moderate amount of mucopurulent secretions status post lavage. Patient tolerated the procedure well Supportive care - NC O2, inhalers/nebs prn, etc. Continue steroids and bronchodilators Tapered down steroids slowly-MUST BE ON 32.5mg daily as per daughter Metabolic encephalopathy, improved, likely was multi factorial as above Rabia intertrigo fluconazole 150 mg PO weekly Monday x 3 doses ( received first dose 10/07) Nystatin Recent DVT/PE DC Coumadin and heparin drip after previous d/w daughter and patient started Eliquis but today changed to 5mg bid dosing, does not need the 10mg bid dosing as previously ordered as was already treated with Lovenox/Coumadin beginning 3 weeks ago -continue to follow INR as is still elevated today at 1.9 T2DM - continue lantus + novolog; BSGs ac/hs. orthostatic hypotension - stable -continue midodrine. chronic diastolic CHF-last ECHO in 03/2017 with normal EF, no diastolic dysfunction but was technically difficult. Does have chronic peripheral edema related to obesity and venous insufficiency and should not be on high doses diuretics -continue aldactone 25 bid hypothyroidism - cont synthroid; most recent TSH earlier this month was normal. 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 DVT proph -being treated for Acute DVT with Eliquis
[2017-10-15] VITALS (7 sets, daily range): BP systolic 134–156; BP diastolic 70–80; PULSE 71–91; TEMP 36.6–36.9; O2SAT 96–99
[2017-10-15] MEDS: PIPERACILL/TAZOBAC IV 4.5 GM in DEXTROSE 5% 100ML IV SCH ×3 (01:52→17:38)
[2017-10-15] MEDS: LEVOTHYROXINE 100 MCG TAB PO SCH (06:08)
[2017-10-15 06:47] LABS: HEMATOCRIT 35.7 % (37-47); HEMOGLOBIN 11.4 g/dL (12.0-16.0); MEAN CELL VOLUME 98.3 fL (80-100); MEAN CORPUSCULAR HEMOGLOBIN 31.4 pg (25-34); MEAN CORPUSCULAR HGB CONC 31.9 g/dl (32-36); MEAN PLATELET VOLUME 10.3 fL (7.4-10.4); NUCLEATED RED BLOOD CELL ABS 0.08 K/uL (0-0); PLATELET COUNT 184 K/uL (130-400); RED CELL DISTRIBUTION WIDTH CV 16.8 % (11.5-14.5); RED CELL DISTRIBUTION WIDTH SD 60.4 fL (36.4-46.3); WHITE BLOOD COUNT 9.21 K/uL (4.8-10.8)
[2017-10-15 07:14] LABS: INR 2.1 (0.9-1.1)
[2017-10-15 07:17] LABS: CALCIUM 9.3 mg/dl (8.5-10.1); CREATININE 1.28 mg/dl (0.60-1.20); POTASSIUM 4.7 mmol/L (3.5-5.1)
[2017-10-15] MEDS: IPRATROPIUM BROMIDE NEB SOLN 0.02% 2.5 ML VIAL INH SCH ×3 (07:58→19:23)
[2017-10-15] MEDS: LEVALBUTEROL 0.63MG/3 ML NEB INH SCH ×3 (07:58→19:23)
[2017-10-15] MEDS: NYSTATIN POWDER 15GM BTL EXT SCH ×3 (08:59→21:32)
[2017-10-15] MEDS: TIOTROPIUM BROMIDE 5 PUFF/90 MCG INH INH SCH (09:00)
[2017-10-15] MEDS: APIXABAN 2.5 MG TAB PO SCH (09:00)
[2017-10-15] MEDS: IPRATROPIUM BROMIDE/ALBUTEROL respimat INH INH SCH ×4 (09:00→21:32)
[2017-10-15] MEDS: CITALOPRAM 20 MG TAB PO SCH (09:01)
[2017-10-15] MEDS: LACTOBACILLUS ACIDOPHILUS 1 GM PACK PO SCH ×3 (09:02→17:14)
[2017-10-15] MEDS: FERROUS SULFATE 325 MG TAB PO SCH (09:02)
[2017-10-15] MEDS: POTASSIUM CHLORIDE 10 MEQ TABCR PO SCH ×2 (09:02→21:40)
[2017-10-15] MEDS: GABAPENTIN 300 MG CAP PO SCH ×2 (09:03→21:37)
[2017-10-15] MEDS: PANTOprazole SOD 40 MG TAB PO SCH (09:04)
[2017-10-15] MEDS: MIDODRINE 2.5 MG TAB PO SCH ×3 (09:04→17:16)
[2017-10-15] MEDS: CALCITRIOL 0.25 MCG CAP PO SCH (09:04)
[2017-10-15] MEDS: CHOLECALCIFEROL 1000 INTER.UNIT TAB PO SCH ×2 (09:05→21:38)
[2017-10-15] MEDS: CYANOCOBALAMIN 500 MCG TAB (VIT B-12) PO SCH (09:05)
[2017-10-15] MEDS: SPIRONOLACTONE 25 MG TAB PO SCH ×2 (09:06→17:15)
[2017-10-15] MEDS: TRAMADOL HCL 50 MG TAB PO SCH ×4 (09:17→21:47)
[2017-10-15] MEDS: INSULIN ASPART 100 UNITS/ML 3 ML PEN SC SCH ×4 (09:18→21:49)
[2017-10-15] MEDS: INSULIN GLARGINE SOLOSTAR 100 UNITS/ML 3 ML PEN SC SCH (09:19)
[2017-10-15] MEDS: BOOST GLUCOSE CONTROL PO SCH ×2 (09:49→21:45)
[2017-10-15] MEDS ORDERED: DOCUSATE SODIUM/SENNA 50/8.6MG TAB PO ONE (10:24)
[2017-10-15] MEDS ORDERED: POLYETHYLENE (MIRALAX) 17 GM PACK PO ONE (10:24)
--- NOTE | 2017-10-15 10:38 | Hospitalist Progress Note ---
Hospitalist Progress Note Date of Service Oct 15, 2017. Subjective Pt evaluation today including: conversation w/ patient, conversation w/ family (daughter on phone), conversation w/ technology sales consultant (ID) Pt says she feels "ok." SOB is the same as it always is, cannot tell if it's better or worse from 2 weeks ago or 1 month ago. No BM noted in 3 days. Last night [facility] [facility] added on Zosyn at daughter's request despite adequate coverage with Levaquin. Daughter reports that Zosyn "works better" and that her mom usually has to be on abx for several weeks as she is "not a normal patient. " Also, prednisone was supposed to be 32.5mg in AM and 17.5mg qPM-changes made this AM (added AM dose back on that was stopped). Discussed case with ID All Other Systems: Reviewed and Negative Objective Vital Signs Date Time Temp Pulse Resp B/P (MAP) Pulse Ox O2 Delivery O2 Flow Rate FiO2 10/15/17 07:59 71 16 97 Nasal Cannula 4.0 10/15/17 07:24 36.6 81 20 134/70 (91) 98 4.0 10/14/17 23:13 36.6 76 18 133/71 (91) 97 Nasal Cannula 4.0 10/14/17 20:00 94 Nasal Cannula 4.0 10/14/17 19:11 81 16 93 Nasal Cannula 4.0 10/14/17 16:00 94 Nasal Cannula 4.0 10/14/17 15:07 36.7 87 20 126/67 (86) 94 Nasal Cannula 4.0 10/14/17 14:19 90 16 92 Nasal Cannula 4.0 Physical Exam General Appearance: no apparent distress, + obese Eyes: normal inspection, EOMI, sclerae normal ENT: hearing grossly normal, pharynx normal Neck: trachea midline Respiratory/Chest: lungs clear, normal breath sounds, no respiratory distress, no accessory muscle use Cardiovascular: regular rate, rhythm, no edema, no gallop, no murmur Abdomen: normal bowel sounds, non tender, soft (but mildly distended) Extremities: no pedal edema, no calf tenderness Neurologic/Psychiatric: alert, + depressed affect Skin: normal color, warm/dry, no rash Laboratory Results Last 24 Hours Test 10/14/17 11:31 10/14/17 16:32 10/14/17 20:09 1/28/18 06:33 Bedside Glucose 102 mg/dl 216 mg/dl 216 mg/dl White Blood Count 9.21 K/uL Red Blood Count 3.63 M/uL Hemoglobin 11.4 g/dL Hematocrit 35.7 % Mean Corpuscular Volume 98.3 fL Mean Corpuscular Hemoglobin 31.4 pg Mean Corpuscular Hemoglobin Concent 31.9 g/dl RDW Standard Deviation 60.4 fL RDW Coefficient of Variation 16.8 % Platelet Count 184 K/uL Mean Platelet Volume 10.3 fL Nucleated RBC Absolute Count (auto) 0.08 K/uL Nucleated Red Blood Cells % 0.8 % Prothrombin Time 22.0 SECONDS Prothromb Time International Ratio 2.1 Sodium Level 136 mmol/L Potassium Level 4.7 mmol/L Chloride Level 97 mmol/L Carbon Dioxide Level 33 mmol/L Anion Gap 6.0 mmol/L Blood Urea Nitrogen 27 mg/dl Creatinine 1.28 mg/dl Est Creatinine Clear Calc Drug Dose 37.5 ml/min Estimated GFR () 45.7 Estimated GFR (Non- 39.4 BUN/Creatinine Ratio 21.0 Random Glucose 108 mg/dl Calcium Level 9.3 mg/dl Test 10/15/17 07:35 Bedside Glucose 113 mg/dl Assessment and Plan This pt is an 82 year old female with chronic hypoxic respiratory failure, COPD on 2 L home oxygen as baseline, recent bilateral DVTs and pulmonary embolism currently on Coumadin, chronic diastolic CHF vs venous insufficiency/LE edema, hypothyroidism, steroid-induced myopathy, DMII, orthostatic hypotension, and CKD stage II-III. Presented to the hospital with altered mental status, myalgia , worsening cough, and acute on chronic hypoxemic respiratory failure with multilobar PNA. Sepsis on admission secondary to multilobar pneumonia - underwent Bronchoscopy with BAL on 10/09. Improved/Stable. Seems to be at her baseline. Gram-negative pneumonia as detected by bronchoalveolar wash culture--> growing out Bordetella bronchoseptica, sensitive to Levaquin and Zosyn-daughter insists pt be on Zosyn residential. - Discussed with ID--> thinks one week of Levaquin would be adequate, but can do either Levaquin or Zosyn for total 2 weeks to acquiesce to daughter/pt wishes -if stable for discharge, could place PICC line, but daughter wants Pulm to see her on Monday so will hold off on PICC (today day #4 of Levaquin,day#2 Zosyn) -Suspected influenza on admission despite neg rapid flu swab, treated empirically with five days of Tamiflu -Blood and urine cultures are negative -f/u fungal and Mycobacterium cxs, smears negative Acute and chronic respiratory failure, improved, on 4LNC and POx high 90s -d/w RN--> wean down to 3LNC, keep sats>92% given COPD -Status post bronchoscopy done by Dr. Matthew 10/09/2017, revealed mucoid impaction in the right middle lobe bronchus and lower lobe, status post appropriate lavage infection. Left lower lobe bronchus field moderate amount of mucopurulent secretions status post lavage. Patient tolerated the procedure well -Supportive care - NC O2, inhalers/nebs prn, etc. -Continue steroids and bronchodilators Tapered down steroids slowly-MUST BE ON 32.5mg qAM and 17.5mg qPM = 60mg daily as per daughter and ONLY Dr. Khalil or Jaun See may taper them Metabolic encephalopathy, improved, likely was multi factorial as above Rabia intertrigo fluconazole 150 mg PO weekly Monday x 3 doses ( received first dose 10/07) Nystatin Recent DVT/PE-was already treated with Lovenox/Coumadin beginning 3 weeks ago at time of diagnosis DC Coumadin and heparin drip after previous d/w daughter and patient and transitioning to Eliquis started Eliquis but today INR 2.1--> HOLD Eliquis today, restart when INR< 2.0 -continue to follow INR T2DM - continue lantus + novolog; BSGs ac/hs. orthostatic hypotension - stable -continue midodrine. chronic diastolic CHF-last ECHO in 03/2017 with normal EF, no diastolic dysfunction but was technically difficult. Does have chronic peripheral edema related to obesity and venous insufficiency and should not be on high doses diuretics -continue aldactone 25 bid hypothyroidism - cont synthroid; most recent TSH earlier this month was normal. 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 DVT proph -being treated for Acute DVT with Eliquis Dispo-to home possibly with PICC line for Zosyn if approved by insurance in 1-2 days
[2017-10-15] MEDS ORDERED: PREDNISONE PO ONE ×2 (10:45)
[2017-10-15] MEDS ORDERED: LEVOFLOXACIN CONSULT ACTIVE PRN (10:45)
[2017-10-15] MEDS: SIMVASTATIN 20 MG TAB PO SCH (21:35)
[2017-10-15] MEDS: ROPINIROLE HCL 0.25 MG TAB PO SCH (21:37)
[2017-10-15] MEDS: CALCIUM CARBONATE 1250MG TAB PO SCH (21:37)
[2017-10-15] MEDS: DOCUSATE SODIUM/SENNA 50/8.6MG TAB PO SCH (21:39)
[2017-10-16] MEDS: PIPERACILL/TAZOBAC IV 4.5 GM in DEXTROSE 5% 100ML IV SCH ×2 (02:31→10:45)
[2017-10-16] MEDS: LEVOTHYROXINE 100 MCG TAB PO SCH (05:41)
[2017-10-16 06:43] LABS: HEMOGLOBIN 11.6 g/dL (12.0-16.0); MEAN CELL VOLUME 97.3 fL (80-100); MEAN CORPUSCULAR HEMOGLOBIN 31.4 pg (25-34); MEAN CORPUSCULAR HGB CONC 32.2 g/dl (32-36); MEAN PLATELET VOLUME 10.4 fL (7.4-10.4); NUCLEATED RED BLOOD CELL ABS 0.06 K/uL (0-0); PLATELET COUNT 193 K/uL (130-400); RED CELL DISTRIBUTION WIDTH CV 16.6 % (11.5-14.5); RED CELL DISTRIBUTION WIDTH SD 59.7 fL (36.4-46.3); WHITE BLOOD COUNT 11.13 K/uL (4.8-10.8)
[2017-10-16 07:06] VITALS: BP 144/77; PULSE 87; TEMP 36.8; O2SAT 94
[2017-10-16 07:09] LABS: BASO % 0.3 %; BASO ABS # 0.03 K/uL (0-0.2); IG# 0.66 K/uL (0.00-0.02); LYMPH % 10.1 %; LYMPH ABS # 1.12 K/uL (1.2-3.4); MONO ABS # 0.78 K/uL (0.11-0.59); NEUT % 76.7 %; NEUT ABS # 8.54 K/uL (1.4-6.5)
[2017-10-16 07:10] LABS: CALCIUM 9.1 mg/dl (8.5-10.1); CREATININE 1.33 mg/dl (0.60-1.20); POTASSIUM 4.4 mmol/L (3.5-5.1)
[2017-10-16 07:19] LABS: INR 1.3 (0.9-1.1)
[2017-10-16] MEDS: IPRATROPIUM BROMIDE NEB SOLN 0.02% 2.5 ML VIAL INH SCH ×3 (07:34→19:45)
[2017-10-16] MEDS: LEVALBUTEROL 0.63MG/3 ML NEB INH SCH ×3 (07:35→19:45)
[2017-10-16] MEDS ORDERED: PREDNISONE PO SCH ×2 (08:00)
[2017-10-16] MEDS: NYSTATIN POWDER 15GM BTL EXT SCH ×3 (08:45→21:08)
[2017-10-16] MEDS: IPRATROPIUM BROMIDE/ALBUTEROL respimat INH INH SCH ×4 (08:45→21:07)
[2017-10-16] MEDS: CITALOPRAM 20 MG TAB PO SCH (08:46)
[2017-10-16] MEDS: FERROUS SULFATE 325 MG TAB PO SCH (08:46)
[2017-10-16] MEDS: TIOTROPIUM BROMIDE 5 PUFF/90 MCG INH INH SCH (08:46)
[2017-10-16] MEDS: LACTOBACILLUS ACIDOPHILUS 1 GM PACK PO SCH ×3 (08:47→17:40)
[2017-10-16] MEDS: GABAPENTIN 300 MG CAP PO SCH ×2 (08:47→21:12)
[2017-10-16] MEDS: POLYETHYLENE (MIRALAX) 17 GM PACK PO SCH (08:47)
[2017-10-16] MEDS: PANTOprazole SOD 40 MG TAB PO SCH (08:47)
[2017-10-16] MEDS: MIDODRINE 2.5 MG TAB PO SCH ×3 (08:47→17:42)
[2017-10-16] MEDS: CALCITRIOL 0.25 MCG CAP PO SCH (08:47)
[2017-10-16] MEDS: TRAMADOL HCL 50 MG TAB PO SCH ×4 (08:48→21:17)
[2017-10-16] MEDS: CYANOCOBALAMIN 500 MCG TAB (VIT B-12) PO SCH (08:48)
[2017-10-16] MEDS: DOCUSATE SODIUM/SENNA 50/8.6MG TAB PO SCH ×2 (08:48→21:11)
[2017-10-16] MEDS: CHOLECALCIFEROL 1000 INTER.UNIT TAB PO SCH ×2 (08:49→21:11)
[2017-10-16] MEDS: INSULIN ASPART 100 UNITS/ML 3 ML PEN SC SCH ×4 (08:59→21:07)
[2017-10-16] MEDS: INSULIN GLARGINE SOLOSTAR 100 UNITS/ML 3 ML PEN SC SCH (09:11)
--- NOTE | 2017-10-16 10:19 | Progress Note ---
Subjective Date of Service: Oct 16, 2017. Subjective Pt evaluation today including: conversation w/ patient, physical exam, chart review, lab review, review of studies asked to re-eval pt due to bronch culture. She was on Levaquin for this and doing well. On my exam she is oob to chair, reading paper. comfortable. denies any sob, states occan cough but much improved. no f/c. tolerating abx. Did discuss with primary service yesterday, daughter requested that she be treated with zosyn as she feels this is more effective for her mother, this was started over weekend. Blood cultures negative and final. wbc mildly elevated but remains on steroids. pt denies abd pain, no n/v/d. all remaining ros reviewed and are negative. Problem List Medical Problems: (1) Cervical strain Status: Acute (2) Fall Status: Acute (3) Fatigue Status: Acute (4) Head injury Status: Acute (5) Head injury Status: Acute (6) Hip pain Status: Acute (7) Hypocalcemia Status: Acute (8) Hypoxia Status: Acute (9) Hypoxia Status: Acute (10) Lower extremity edema Status: Acute (11) PNA (pneumonia) Status: Acute (12) Pneumonia Status: Acute (13) Reactive airway disease Status: Acute (14) Right flank pain Status: Acute (15) Sepsis Status: Acute (16) Sepsis Status: Acute (17) Syncope Status: Acute (18) Traumatic compression fracture of third thoracic vertebra Status: Acute (19) Weakness Status: Acute Objective Vital Signs Date Time Temp Pulse Resp B/P (MAP) Pulse Ox O2 Delivery O2 Flow Rate FiO2 10/16/17 07:06 36.8 87 16 144/77 (99) 94 Nasal Cannula 2.0 10/16/17 00:00 Nasal Cannula 3.0 10/15/17 22:54 36.9 91 18 149/79 (102) 96 Nasal Cannula 2.0 10/15/17 20:00 Nasal Cannula 3.0 10/15/17 16:00 99 Nasal Cannula 3.0 10/15/17 14:33 36.8 86 20 156/80 (105) 99 10/15/17 14:32 82 16 96 Nasal Cannula 4.0 Physical Exam General Appearance: WD/WN, no apparent distress Eyes: normal inspection, EOMI Neck: supple Respiratory/Chest: lungs clear, normal breath sounds, no respiratory distress, + decreased breath sounds Cardiovascular: regular rate, rhythm, no edema Abdomen: soft Extremities: non-tender Neurologic/Psychiatric: alert, oriented x 3 Skin: normal color Laboratory Results Item Value Date Time Gram Stain - Final Resulted 10/09/17 0855 Bronchial Washings Right & Left Lower Lobe Last 24 Hours Test 10/15/17 11:59 10/15/17 16:28 10/15/17 19:59 10/16/17 06:22 Bedside Glucose 146 mg/dl 209 mg/dl 300 mg/dl White Blood Count 11.13 K/uL Red Blood Count 3.70 M/uL Hemoglobin 11.6 g/dL Hematocrit 36.0 % Mean Corpuscular Volume 97.3 fL Mean Corpuscular Hemoglobin 31.4 pg Mean Corpuscular Hemoglobin Concent 32.2 g/dl Platelet Count 193 K/uL Mean Platelet Volume 10.4 fL Neutrophils (%) (Auto) 76.7 % Lymphocytes (%) (Auto) 10.1 % Monocytes (%) (Auto) 7.0 % Eosinophils (%) (Auto) 0.0 % Basophils (%) (Auto) 0.3 % Neutrophils # (Auto) 8.54 K/uL Lymphocytes # (Auto) 1.12 K/uL Monocytes # (Auto) 0.78 K/uL Eosinophils # (Auto) 0.00 K/uL Basophils # (Auto) 0.03 K/uL RDW Standard Deviation 59.7 fL RDW Coefficient of Variation 16.6 % Immature Granulocyte % (Auto) 5.9 % Immature Granulocyte # (Auto) 0.66 K/uL Nucleated RBC Absolute Count (auto) 0.06 K/uL Nucleated Red Blood Cells % 0.6 % Prothrombin Time 14.0 SECONDS Prothromb Time International Ratio 1.3 Sodium Level 134 mmol/L Potassium Level 4.4 mmol/L Chloride Level 96 mmol/L Carbon Dioxide Level 31 mmol/L Anion Gap 7.0 mmol/L Blood Urea Nitrogen 26 mg/dl Creatinine 1.33 mg/dl Est Creatinine Clear Calc Drug Dose 36.4 ml/min Estimated GFR () 43.6 Estimated GFR (Non- 37.7 BUN/Creatinine Ratio 19.8 Random Glucose 197 mg/dl Calcium Level 9.1 mg/dl Assessment and Plan (1) Pleural effusion Assessment & Plan: can continue with levaquin to complete 14 days total, however, zosyn would also be alternative. downside to zosyn would be need for picc line and multiple doses/day vs once daily po abx. Daughter has requested zosyn be continued, no contraindication to continuing this, if this is the plan , levaquin can be d/c. Continued [facility] stay due to: inadequate oral pain control Discharge planning: uncertain
[2017-10-16] MEDS ORDERED: LEVOFLOXACIN / D5W 750 MG in PREMIXED IN D5W 150 ML IV SCH ×2 (11:00)
--- NOTE | 2017-10-16 12:31 | PULMONARY PROGRESS NOTE ---
DATE: 10/16/2017 TIME: 11:45 a.m. SUBJECTIVE: The patient indicates she feels pretty good. She denies significant shortness of breath this morning. She has a cough, which is dry. She was able to get to the bathroom with relatively minimal assistance from the nurse. I spoke with her RN, who feels that the patient is as good as she has been since her hospital stay. She feels that she looks as good as she usually does. The patient of course is modestly week. 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 OBJECTIVE: VITAL SIGNS: Temperature was 36.8. Heart rate was 87. The rhythm is regular. Blood pressure 144/77. GENERAL: The patient was cooperative, alert and oriented. She was in no distress. The patient is somewhat cushingoid in the face. LUNGS: Lung madden revealed on the left side mild inspiratory rhonchi. The right lung was clear. No active wheezing was heard. The respiratory rate was 16 breaths per minute. The oxygen saturation was 94% on 2 liters. ABDOMEN: Markedly obese. Bowel sounds were present, but were slightly diminished. There was no tenderness to palpation. EXTREMITIES: Revealed scars on both knees from prior surgeries. There was no cyanosis or clubbing. There was no significant edema. LABORATORY DATA: White count today was 11.13. Hemoglobin 11.6. Platelets 193,000. INR today was down to 1.3. Electrolytes show sodium 134, potassium 4.4, chloride 96, and bicarbonate 31. BUN is 26 with a creatinine of 1.33. The patient's bronchial washings from bronchoscopy on October 09 showed Bordetella bronchiseptica. This was sensitive to levofloxacin with an PADMINI of less than 2. It was sensitive to piperacillin/tazobactam, but with an PADMINI less than 16. IMPRESSIONS: 1. Acute on chronic respiratory failure with hypoxia. 2. Chronic obstructive pulmonary disease exacerbation. 3. Respiratory infection with Bordetella bronchiseptica. 4. Chronic steroid use. COMMENTS AND RECOMMENDATIONS: The patient seems to be about as stable as she is going to be. I did discuss the case with Dr. Lockwood. There is an issue regarding the antibiotic of choice. Apparently, infectious disease had recommended 2 weeks of levofloxacin. The patient's family had requested to have a PICC line to receive the Zosyn at home. They felt that in general, that medication had worked better for her in the past. If indeed, the culture is accurate, the PADMINI would be better for the levofloxacin and then for the Zosyn. Also, it would not require a PICC line and thus, there would be increased risk of infection from the PICC line itself as well as inherent risks of phlebitis from the PICC line. Thus, these are issues to be considered. It would appear that either antibiotic would be acceptable. The patient is still maintained on very high prednisone. Obviously, this has to be weaned, but quite slowly. I would continue with the patient's other medications as they have been.
[2017-10-16] MEDS: BOOST GLUCOSE CONTROL PO SCH ×2 (12:44→21:17)
[2017-10-16 14:48] VITALS: BP 151/80; PULSE 86; TEMP 36.8; O2SAT 98
[2017-10-16 16:00] VITALS: O2SAT 98
--- NOTE | 2017-10-16 17:14 | Hospitalist Progress Note ---
Hospitalist Progress Note Date of Service Oct 16, 2017. Subjective Pt evaluation today including: conversation w/ patient, conversation w/ family Pt feels better today. Had a small BM. Is OOB to chair. Discussed case with Pulm today. Daughter and pt agreeable to changing to Levaquin and stopping Zosyn. All Other Systems: Reviewed and Negative Objective Vital Signs Date Time Temp Pulse Resp B/P (MAP) Pulse Ox O2 Delivery O2 Flow Rate FiO2 10/16/17 14:48 36.8 86 20 151/80 (103) 98 2.0 10/16/17 10:16 Nasal Cannula 2.0 10/16/17 07:06 36.8 87 16 144/77 (99) 94 Nasal Cannula 2.0 10/16/17 00:00 Nasal Cannula 3.0 10/15/17 22:54 36.9 91 18 149/79 (102) 96 Nasal Cannula 2.0 10/15/17 20:00 Nasal Cannula 3.0 Physical Exam General Appearance: no apparent distress, + obese (sitting in chair) Eyes: normal inspection, sclerae normal ENT: hearing grossly normal Neck: trachea midline Respiratory/Chest: lungs clear, normal breath sounds, no respiratory distress, no accessory muscle use Cardiovascular: regular rate, rhythm, no edema, no gallop, no murmur Abdomen: normal bowel sounds, non tender, soft Extremities: non-tender, normal inspection, no pedal edema, no calf tenderness Neurologic/Psychiatric: alert, + depressed affect Skin: normal color, warm/dry, no rash Laboratory Results Last 24 Hours Test 10/15/17 19:59 10/16/17 06:22 Bedside Glucose 300 mg/dl White Blood Count 11.13 K/uL Red Blood Count 3.70 M/uL Hemoglobin 11.6 g/dL Hematocrit 36.0 % Mean Corpuscular Volume 97.3 fL Mean Corpuscular Hemoglobin 31.4 pg Mean Corpuscular Hemoglobin Concent 32.2 g/dl Platelet Count 193 K/uL Mean Platelet Volume 10.4 fL Neutrophils (%) (Auto) 76.7 % Lymphocytes (%) (Auto) 10.1 % Monocytes (%) (Auto) 7.0 % Eosinophils (%) (Auto) 0.0 % Basophils (%) (Auto) 0.3 % Neutrophils # (Auto) 8.54 K/uL Lymphocytes # (Auto) 1.12 K/uL Monocytes # (Auto) 0.78 K/uL Eosinophils # (Auto) 0.00 K/uL Basophils # (Auto) 0.03 K/uL RDW Standard Deviation 59.7 fL RDW Coefficient of Variation 16.6 % Immature Granulocyte % (Auto) 5.9 % Immature Granulocyte # (Auto) 0.66 K/uL Nucleated RBC Absolute Count (auto) 0.06 K/uL Nucleated Red Blood Cells % 0.6 % Prothrombin Time 14.0 SECONDS Prothromb Time International Ratio 1.3 Sodium Level 134 mmol/L Potassium Level 4.4 mmol/L Chloride Level 96 mmol/L Carbon Dioxide Level 31 mmol/L Anion Gap 7.0 mmol/L Blood Urea Nitrogen 26 mg/dl Creatinine 1.33 mg/dl Est Creatinine Clear Calc Drug Dose 36.4 ml/min Estimated GFR () 43.6 Estimated GFR (Non- 37.7 BUN/Creatinine Ratio 19.8 Random Glucose 197 mg/dl Calcium Level 9.1 mg/dl Assessment and Plan This pt is an 82 year old female with chronic hypoxic respiratory failure, COPD on 2 L home oxygen as baseline, recent bilateral DVTs and pulmonary embolism currently on Coumadin, chronic diastolic CHF vs venous insufficiency/LE edema, hypothyroidism, steroid-induced myopathy, DMII, orthostatic hypotension, and CKD stage II-III. Presented to the hospital with altered mental status, myalgia , worsening cough, and acute on chronic hypoxemic respiratory failure with multilobar PNA. Sepsis on admission secondary to multilobar pneumonia - underwent Bronchoscopy with BAL on 10/09. Improved/Stable. Is back at her baseline. On 2LNC now. Gram-negative pneumonia as detected by bronchoalveolar wash culture--> growing out Bordetella bronchoseptica, sensitive to Levaquin and Zosyn-daughter was insisting pt be on Zosyn--> but now is agreeable to po Levaquin to avoid risk of PICC line that would be necessary for Zosyn - Discussed with ID--> thinks one week of Levaquin would be adequate, but can do Levaquin for total 2 weeks to acquiesce to daughter/pt wishes (today day #5 of Levaquin) -dc Zosyn -Suspected influenza on admission despite neg rapid flu swab, treated empirically with five days of Tamiflu -Blood and urine cultures are negative -f/u fungal and Mycobacterium cxs, smears negative--> now with Fungal element growing on cx, ID pending Acute and chronic respiratory failure/COPD/OHS-improved, on 2LNC and POx high 90s -Status post bronchoscopy done by Dr. Matthew 10/09/2017, revealed mucoid impaction in the right middle lobe bronchus and lower lobe, status post appropriate lavage infection. Left lower lobe bronchus field moderate amount of mucopurulent secretions status post lavage. Patient tolerated the procedure well -Supportive care - NC O2, inhalers/nebs prn, etc. -Continue steroids and bronchodilators Tapered down steroids slowly-MUST BE ON 50mg daily as per daughter and ONLY Dr. Khalil or Jaun See may taper them-Jaun to see pt tomorrow, was on 30mg daily on admission 2 weeks ago Metabolic encephalopathy, improved, likely was multi factorial as above Rabia intertrigo fluconazole 150 mg PO x 1 given on 10/05 Nystatin Recent DVT with suspected PE-was already treated with Lovenox/Coumadin beginning 3 weeks ago at time of diagnosis DCd Coumadin and heparin drip after previous d/w daughter and patient and transitioned to Eliquis restart Eliquis now that INR< 2 -continue to follow INR given recent coumadin use -check on $$ of Eliquis T2DM with hyperglycemia secondary to higher dose steroids - increase lantus to 22 units qAM and tightened carb coverage and correction factor for SSI -continue BSGs ac/hs. orthostatic hypotension - stable -continue midodrine. chronic diastolic CHF-last ECHO in 03/2017 with normal EF, no diastolic dysfunction but was technically difficult. Does have chronic peripheral edema related to obesity and venous insufficiency and should not be on high doses diuretics -continue aldactone 25 bid hypothyroidism - cont synthroid; most recent TSH earlier this month was normal. Acute renal insufficiency on CKD stage 2-3 - creatinine is increased slightly to 1.33 today -hold aldactone -decrease K+ to 10meq bid to avoid hyperkalemia in setting of worsening renal function DVT proph -being treated for Acute DVT with Eliquis Dispo-to home in 1-2 days
[2017-10-16] MEDS: APIXABAN 2.5 MG TAB PO SCH (17:40)
[2017-10-16] MEDS: POTASSIUM CHLORIDE 10 MEQ TABCR PO SCH (21:08)
[2017-10-16] MEDS: ROPINIROLE HCL 0.25 MG TAB PO SCH (21:09)
[2017-10-16] MEDS: SIMVASTATIN 20 MG TAB PO SCH (21:10)
[2017-10-16] MEDS: CALCIUM CARBONATE 1250MG TAB PO SCH (21:10)
[2017-10-16] MEDS: LORAZEPAM 0.5 MG TAB PO PRN (23:34)
[2017-10-17] VITALS (8 sets, daily range): BP systolic 123–174; BP diastolic 69–96; PULSE 84–96; TEMP 36.4–36.8; O2SAT 92–97
[2017-10-17] MEDS: LEVOTHYROXINE 100 MCG TAB PO SCH (05:43)
[2017-10-17] MEDS: APIXABAN 2.5 MG TAB PO SCH ×2 (05:43→21:16)
[2017-10-17 07:09] LABS: HEMATOCRIT 34.4 % (37-47); HEMOGLOBIN 11.1 g/dL (12.0-16.0); MEAN CELL VOLUME 96.4 fL (80-100); MEAN CORPUSCULAR HEMOGLOBIN 31.1 pg (25-34); MEAN CORPUSCULAR HGB CONC 32.3 g/dl (32-36); MEAN PLATELET VOLUME 10.2 fL (7.4-10.4); NUCLEATED RED BLOOD CELL ABS 0.09 K/uL (0-0); PLATELET COUNT 179 K/uL (130-400); RED CELL DISTRIBUTION WIDTH CV 16.4 % (11.5-14.5); RED CELL DISTRIBUTION WIDTH SD 57.1 fL (36.4-46.3); WHITE BLOOD COUNT 11.95 K/uL (4.8-10.8)
[2017-10-17 07:16] LABS: INR 1.1 (0.9-1.1)
[2017-10-17 07:39] LABS: CALCIUM 9.4 mg/dl (8.5-10.1); CREATININE 0.98 mg/dl (0.60-1.20); POTASSIUM 3.8 mmol/L (3.5-5.1)
[2017-10-17 07:51] LABS: BASO % 0.4 %; BASO ABS # 0.05 K/uL (0-0.2); EOS % 0.3 %; EOS ABS # 0.03 K/uL (0-0.5); IG# 0.89 K/uL (0.00-0.02); LYMPH % 11.5 %; LYMPH ABS # 1.37 K/uL (1.2-3.4); MONO % 11.8 %; MONO ABS # 1.41 K/uL (0.11-0.59); NEUT % 68.6 %
[2017-10-17] MEDS: IPRATROPIUM BROMIDE NEB SOLN 0.02% 2.5 ML VIAL INH SCH ×3 (08:31→20:46)
[2017-10-17] MEDS: LEVALBUTEROL 0.63MG/3 ML NEB INH SCH ×3 (08:31→20:45)
[2017-10-17] MEDS: INSULIN ASPART 100 UNITS/ML 3 ML PEN SC SCH ×4 (09:45→21:32)
[2017-10-17] MEDS: INSULIN GLARGINE SOLOSTAR 100 UNITS/ML 3 ML PEN SC SCH (09:46)
[2017-10-17] MEDS: NYSTATIN POWDER 15GM BTL EXT SCH ×3 (09:49→21:14)
[2017-10-17] MEDS: POTASSIUM CHLORIDE 10 MEQ TABCR PO SCH ×2 (09:49→21:17)
[2017-10-17] MEDS: IPRATROPIUM BROMIDE/ALBUTEROL respimat INH INH SCH ×4 (09:49→21:14)
[2017-10-17] MEDS: DOCUSATE SODIUM/SENNA 50/8.6MG TAB PO SCH ×2 (09:50→21:18)
[2017-10-17] MEDS: LACTOBACILLUS ACIDOPHILUS 1 GM PACK PO SCH ×3 (09:50→17:40)
[2017-10-17] MEDS: CALCITRIOL 0.25 MCG CAP PO SCH (09:50)
[2017-10-17] MEDS: PANTOprazole SOD 40 MG TAB PO SCH (09:51)
[2017-10-17] MEDS: POLYETHYLENE (MIRALAX) 17 GM PACK PO SCH (09:51)
[2017-10-17] MEDS: GABAPENTIN 300 MG CAP PO SCH ×2 (09:51→21:17)
[2017-10-17] MEDS: CHOLECALCIFEROL 1000 INTER.UNIT TAB PO SCH ×2 (09:51→21:20)
[2017-10-17] MEDS: FERROUS SULFATE 325 MG TAB PO SCH (09:52)
[2017-10-17] MEDS: CITALOPRAM 20 MG TAB PO SCH (09:52)
[2017-10-17] MEDS: CYANOCOBALAMIN 500 MCG TAB (VIT B-12) PO SCH (09:52)
[2017-10-17] MEDS: TIOTROPIUM BROMIDE 5 PUFF/90 MCG INH INH SCH (09:53)
[2017-10-17] MEDS: MIDODRINE 2.5 MG TAB PO SCH ×3 (09:54→19:38)
[2017-10-17] MEDS: BOOST GLUCOSE CONTROL PO SCH ×2 (09:59→21:00)
[2017-10-17] MEDS: TRAMADOL HCL 50 MG TAB PO SCH ×4 (10:00→21:18)
--- NOTE | 2017-10-17 11:20 | PULMONARY PROGRESS NOTE ---
DATE: 10/17/2017 PROBLEM LIST: Includes: 1. Acute on chronic respiratory failure with hypoxia. 2. Chronic obstructive pulmonary disease with exacerbation. 3. Respiratory infection with Bordetella bronchiseptica species, susceptible to quinolones. 4. Chronic steroid use. SUBJECTIVE: The patient reports today that she is actually feeling pretty well. She is in a chair at bedside and states that this is the best her breathing is better since she has been in here. She states that she still does feel out of breath with activity. When she gets up and moves around, she does get winded. She states that she also has some cough, but there is no mucus production. She states that she feels like there may be a little bit of mucous in her chest, but it was difficult to expectorate She is using her oxygen and feels that this is helpful for her. She has been on Levaquin for the Bordetella species. Apparently, Dr. Lockwood did have a conversation with her daughter. There apparently was some question about using IV medications. When I asked if the patient is having chest pain, she reported that she give much more information and when I tried to get more information, she did not really say much. She has notice that her abdomen is distended. She states that her bowels did not move yesterday. She states that she is passing gas. She does not really have much abdominal discomfort. She states that she is voiding well and she states that her legs are not bad. Unfortunately, patient is severely deconditioned but is not agreeable to going to rehab. OBJECTIVE: GENERAL: The patient is an 82-year-old female seen at bedside. She is alert and oriented x3. Mood is good. Affect is good. VITAL SIGNS: Temp 36.6, pulse 85, respirations 20, blood pressure is 123/69, pulse ox 96% on 2 liters. HEENT: The patient does have rounded feces from steroid. Pupils are equal. NECK: Short, thick, no mass. No adenopathy. CHEST: Diminished breath sounds bilaterally. Auscultation did not reveal any significant wheezing. No rale or rhonchi noted. Overall, lung sounds were good. CARDIOVASCULAR: Regular rate and rhythm. No murmurs, gallops or rubs appreciated. ABDOMEN: The patient is obese, but abdomen does seem to be distended, slightly tympanic to percussion. No tenderness to percussion. Bowel sounds were present and did sound slightly hyperactive. EXTREMITIES: No erythema, no edema. NEUROLOGIC: Cranial nerves II through XII grossly intact. No focal deficits noted. LABORATORY DATA: White count shows 11,000, H&H 11.1 and 34.4, platelet count 179,000. INR 1.1. BUN is 38, creatinine is 0.98. IMAGING DATA: No new radiologic data. IMPRESSION: 1. This is an 82-year-old female who we follow in the office for chronic respiratory failure secondary to her chronic obstructive pulmonary disease. She is having acute exacerbation with hypoxia. 2. Chronic obstructive pulmonary disease exacerbation. 3. Respiratory infection with Bordetella bronchiseptica. This is susceptible to Levaquin. The patient is on Levaquin at this time, will continue. Apparently, infectious disease is following as well. 4. Chronic steroid use. 5. History of right diaphragmatic plication. 6. Abdominal distention. PLAN: 1. At this point, the patient seems relatively stable and this is the best I have seen her in a long time including outpatient gonzalez. 2. Do agree with the Levaquin. Would recommend to follow ID recommendations regarding the Bordetella bronchiseptica treatment. The patient seems to be tolerating Levaquin well. We will continue to follow in the office. 3. In regards to her prednisone, the patient has currently been on 50 mg, would recommend to continue 50 mg daily until seen in the office at which point we will continue our tapering dose. 4. Abdominal distention. The patient states she did move her bowels yesterday; however, with the amount of distention she is having, I would like to repeat an abdominal x-ray. At this point we will recheck patient in the morning. I would anticipate that the patient should be able to potentially be discharged in the next day or 2. MTDD
[2017-10-17] MEDS ORDERED: LINACLOTIDE 290 MCG PO PRN (12:15)
--- NOTE | 2017-10-17 14:49 | Hospitalist Progress Note ---
Hospitalist Progress Note Date of Service Oct 17, 2017. Subjective Pt evaluation today including: conversation w/ patient, conversation w/ center lead consultant (ID, Pulm) Pt feels ok, not really SOB. Had 2 BMs yesterday. Feels ready for discharge tomorrow All Other Systems: Reviewed and Negative Objective Vital Signs Date Time Temp Pulse Resp B/P (MAP) Pulse Ox O2 Delivery O2 Flow Rate FiO2 10/17/17 08:00 Nasal Cannula 2.0 10/17/17 07:25 36.6 85 20 123/69 (87) 96 10/17/17 00:30 Nasal Cannula 2.0 10/17/17 00:20 36.6 90 18 150/84 (106) 93 Nasal Cannula 2.0 10/16/17 16:00 98 Nasal Cannula 2.0 10/16/17 14:48 36.8 86 20 151/80 (103) 98 2.0 Physical Exam General Appearance: no apparent distress, + obese (sitting inc hair) Eyes: normal inspection, sclerae normal ENT: hearing grossly normal Neck: trachea midline Respiratory/Chest: lungs clear, normal breath sounds, no respiratory distress, no accessory muscle use Cardiovascular: regular rate, rhythm, no murmur, + pertinent finding (trace pitting edema bilat) Abdomen: normal bowel sounds, non tender, soft (but mildly distended) Extremities: no calf tenderness Neurologic/Psychiatric: alert, + depressed affect Skin: normal color, warm/dry, no rash Laboratory Results Last 24 Hours Test 10/16/17 16:52 10/16/17 20:15 10/17/17 06:51 10/17/17 07:43 Bedside Glucose 182 mg/dl 123 mg/dl 80 mg/dl White Blood Count 11.95 K/uL Red Blood Count 3.57 M/uL Hemoglobin 11.1 g/dL Hematocrit 34.4 % Mean Corpuscular Volume 96.4 fL Mean Corpuscular Hemoglobin 31.1 pg Mean Corpuscular Hemoglobin Concent 32.3 g/dl Platelet Count 179 K/uL Mean Platelet Volume 10.2 fL Neutrophils (%) (Auto) 68.6 % Lymphocytes (%) (Auto) 11.5 % Monocytes (%) (Auto) 11.8 % Eosinophils (%) (Auto) 0.3 % Basophils (%) (Auto) 0.4 % Neutrophils # (Auto) 8.20 K/uL Lymphocytes # (Auto) 1.37 K/uL Monocytes # (Auto) 1.41 K/uL Eosinophils # (Auto) 0.03 K/uL Basophils # (Auto) 0.05 K/uL RDW Standard Deviation 57.1 fL RDW Coefficient of Variation 16.4 % Immature Granulocyte % (Auto) 7.4 % Immature Granulocyte # (Auto) 0.89 K/uL Nucleated RBC Absolute Count (auto) 0.09 K/uL Nucleated Red Blood Cells % 0.8 % Prothrombin Time 12.0 SECONDS Prothromb Time International Ratio 1.1 Sodium Level 136 mmol/L Potassium Level 3.8 mmol/L Chloride Level 99 mmol/L Carbon Dioxide Level 28 mmol/L Anion Gap 9.0 mmol/L Blood Urea Nitrogen 38 mg/dl Creatinine 0.98 mg/dl Est Creatinine Clear Calc Drug Dose 49.3 ml/min Estimated GFR () 63.1 Estimated GFR (Non- 54.5 BUN/Creatinine Ratio 39.3 Random Glucose 81 mg/dl Calcium Level 9.4 mg/dl Magnesium Level 2.3 mg/dl Test 10/17/17 11:15 Bedside Glucose 118 mg/dl Assessment and Plan This pt is an 82 year old female with chronic hypoxic respiratory failure, COPD on 2 L home oxygen as baseline, recent bilateral DVTs and pulmonary embolism currently on Coumadin, chronic diastolic CHF vs venous insufficiency/LE edema, hypothyroidism, steroid-induced myopathy, DMII, orthostatic hypotension, and CKD stage II-III. Presented to the hospital with altered mental status, myalgia , worsening cough, and acute on chronic hypoxemic respiratory failure with multilobar PNA. Sepsis on admission secondary to multilobar pneumonia - underwent Bronchoscopy with BAL on 10/09. Improved/Stable. Is back at her baseline. Continues on 2LNC and is stable Gram-negative pneumonia as detected by bronchoalveolar wash culture--> growing out Bordetella bronchoseptica, sensitive to Levaquin and Zosyn-daughter was insisting pt be on Zosyn--> but now is agreeable to po Levaquin to avoid risk of PICC line that would be necessary for Zosyn - Discussed with ID--> thinks one week of Levaquin would be adequate, but can do Levaquin for total 2 weeks to acquiesce to daughter/pt wishes (today day # of Levaquin) -dcs Zosyn -Suspected influenza on admission despite neg rapid flu swab, treated empirically with five days of Tamiflu -Blood and urine cultures are negative -f/u fungal and Mycobacterium cxs, smears negative--> now with Yeast not Cnadida growing on fungal cx-reviewed with ID--> likely colonization, no need to treat Acute and chronic respiratory failure/COPD/OHS-improved, on 2LNC and POx high 90s -Status post bronchoscopy done by Dr. Matthew 10/09/2017, revealed mucoid impaction in the right middle lobe bronchus and lower lobe, status post appropriate lavage infection. Left lower lobe bronchus field moderate amount of mucopurulent secretions status post lavage. Patient tolerated the procedure well -Supportive care - NC O2, inhalers/nebs prn, etc. -Continue steroids and bronchodilators Tapered down steroids slowly-spoke with Pulm-she is to remain on prednisone 50mg daily until seen by Pulm in office Metabolic encephalopathy, improved, likely was multi factorial as above Rabia intertrigo fluconazole 150 mg PO x 1 given on 10/05 Nystatin Recent DVT with suspected PE-was already treated with Lovenox/Coumadin beginning 3 weeks ago at time of diagnosis DCd Coumadin and heparin drip after previous d/w daughter and patient and transitioned to Eliquis restarted Eliquis when INR< 2 -continue to follow INR given recent coumadin use--> is 1.1 today, can stop checking INR -check on $$ of Eliquis--> will be $30/month T2DM with hyperglycemia secondary to higher dose steroids - increase lantus to 22 units qAM and tightened carb coverage and correction factor for SSI -continue BSGs ac/hs. orthostatic hypotension - stable -continue midodrine. chronic diastolic CHF-last ECHO in 03/2017 with normal EF, no diastolic dysfunction but was technically difficult. 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 Acute renal insufficiency on CKD stage 2-3 - creatinine was increased to 1.33, now improved with holding aldactone to 0.98 -with trace pitting edema in legs, will restart aldactone at lower dose of 25mg daily -inecrease K+ back to home dose of 20meq bid as K+ 3.8 today DVT proph -being treated for Acute DVT with Eliquis Dispo-to home in 1 day
[2017-10-17] MEDS ORDERED: LEVOFLOXACIN / D5W 750 MG in PREMIXED IN D5W 150 ML IV SCH (16:00)
[2017-10-17] MEDS: CALCIUM CARBONATE 1250MG TAB PO SCH (21:20)
[2017-10-17] MEDS: SIMVASTATIN 20 MG TAB PO SCH (21:21)
[2017-10-17] MEDS: ROPINIROLE HCL 0.25 MG TAB PO SCH (21:22)
[2017-10-18] MEDS: LEVOTHYROXINE 100 MCG TAB PO SCH (05:52)
[2017-10-18 07:12] VITALS: BP 136/79; PULSE 79; TEMP 36.6; O2SAT 100
[2017-10-18] MEDS: LEVALBUTEROL 0.63MG/3 ML NEB INH SCH (07:16)
[2017-10-18] MEDS: IPRATROPIUM BROMIDE NEB SOLN 0.02% 2.5 ML VIAL INH SCH (07:16)
[2017-10-18] MEDS: TRAMADOL HCL 50 MG TAB PO SCH ×2 (07:54→11:41)
[2017-10-18] MEDS: LACTOBACILLUS ACIDOPHILUS 1 GM PACK PO SCH ×2 (07:54→11:41)
[2017-10-18] MEDS: DOCUSATE SODIUM/SENNA 50/8.6MG TAB PO SCH (07:54)
[2017-10-18] MEDS: CHOLECALCIFEROL 1000 INTER.UNIT TAB PO SCH (07:54)
[2017-10-18] MEDS: CYANOCOBALAMIN 500 MCG TAB (VIT B-12) PO SCH (07:54)
[2017-10-18] MEDS: IPRATROPIUM BROMIDE/ALBUTEROL respimat INH INH SCH ×2 (07:54→11:41)
[2017-10-18] MEDS: NYSTATIN POWDER 15GM BTL EXT SCH (07:54)
[2017-10-18] MEDS: POLYETHYLENE (MIRALAX) 17 GM PACK PO SCH (07:54)
[2017-10-18] MEDS: TIOTROPIUM BROMIDE 5 PUFF/90 MCG INH INH SCH (07:55)
[2017-10-18] MEDS: FERROUS SULFATE 325 MG TAB PO SCH (07:55)
[2017-10-18] MEDS: CALCITRIOL 0.25 MCG CAP PO SCH (07:55)
[2017-10-18] MEDS: PANTOprazole SOD 40 MG TAB PO SCH (07:55)
[2017-10-18] MEDS: POTASSIUM CHLORIDE 10 MEQ TABCR PO SCH (07:55)
[2017-10-18] MEDS: MIDODRINE 2.5 MG TAB PO SCH ×2 (07:56→11:41)
[2017-10-18] MEDS: GABAPENTIN 300 MG CAP PO SCH (07:56)
[2017-10-18] MEDS: APIXABAN 2.5 MG TAB PO SCH (07:56)
[2017-10-18] MEDS: CITALOPRAM 20 MG TAB PO SCH (07:56)
[2017-10-18 08:00] LABS: HEMATOCRIT 36.1 % (37-47); HEMOGLOBIN 11.5 g/dL (12.0-16.0); MEAN CELL VOLUME 97.3 fL (80-100); MEAN CORPUSCULAR HGB CONC 31.9 g/dl (32-36); MEAN PLATELET VOLUME 10.6 fL (7.4-10.4); NUCLEATED RED BLOOD CELL ABS 0.07 K/uL (0-0); PLATELET COUNT 175 K/uL (130-400); RED CELL DISTRIBUTION WIDTH CV 16.3 % (11.5-14.5); RED CELL DISTRIBUTION WIDTH SD 58.1 fL (36.4-46.3)
[2017-10-18] MEDS ORDERED: SPIRONOLACTONE 25 MG TAB PO SCH (08:00)
[2017-10-18 08:38] LABS: CREATININE 0.95 mg/dl (0.60-1.20)
[2017-10-18] MEDS: INSULIN ASPART 100 UNITS/ML 3 ML PEN SC SCH ×2 (09:03→12:34)
[2017-10-18] MEDS: INSULIN GLARGINE SOLOSTAR 100 UNITS/ML 3 ML PEN SC SCH (09:03)
[2017-10-18] MEDS: BOOST GLUCOSE CONTROL PO SCH (09:48)
[2017-10-18 10:10] VITALS: O2SAT 100
[2017-10-18] MEDS ORDERED: SPR25 PO (10:40)
[2017-10-18] MEDS ORDERED: LCTXP PO (10:40)
[2017-10-18] MEDS ORDERED: LEVO1TAB35 PO (10:40)
[2017-10-18] MEDS ORDERED: NUTR-7 PO (10:40)
[2017-10-18] MEDS ORDERED: PRED10TA PO (10:40)
[2017-10-18] MEDS ORDERED: PRMT25 PO (10:40)
[2017-10-18] MEDS ORDERED: INSDGIPEN SC (10:40)
[2017-10-18] MEDS ORDERED: APIX1TAB3 PO (10:40)
--- NOTE | 2017-10-18 10:47 | Discharge Instructions ---
Discharge Instructions Date of Service Oct 18, 2017. Admission Reason for Admission: Sepsis, Pneumonia Discharge Discharge Diagnosis / Problem: Sepsis, Pneumonia Discharge Goals Goal(s): Improve disease control, Diagnostic testing, Therapeutic intervention Activity Recommendations Activity Limitations: as noted below Exercise/Sports Limitations: gradually increase as tolerated Shower/Bathe: no limitations . Instructions / Follow-Up Instructions / Follow-Up Please finish out the course of Levaquin as prescribed. Stay on the prednisone 50mg daily until seen by Pulmonology. Please follow up with Pulmonology and PCP as scheduled. Current Hospital Diet Patient's current hospital diet: AHA Diet (Heart Healthy), Diabetes Type 2 Diet Discharge Diet Recommended Diet: AHA Diet (Heart Healthy), Diabetes Type 2 Diet Procedures Procedures Performed: Bronchoscopy Pending Studies Studies pending at discharge: no Laboratory Results Hemoglobin A1c Test 09/20/17 04:59 Range/Units Estimated Average Glucose 148 mg/dl Hemoglobin A1c 6.8 H 4.5-5.6 % Medical Emergencies . Who to Call and When: Medical Emergencies: If at any time you feel your situation is an emergency, please call 911 immediately. . Non-Emergent Contact Non-Emergency issues call your: Primary Care Provider, Lamps Tester And Inspector Call Non-Emergent contact if: you have a fever, you have any medication questions . . "Provider Documentation" section prepared by Sydnee Lockwood. . VTE Core Measure Inpt VTE Proph given/why not?: Other Anticoagulation (Eliquis)
--- NOTE | 2017-10-18 10:49 | Discharge Summary ---
Discharge Summary Date of Service Oct 18, 2017. 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 Recent bilateral DVTs Small right mastoid effusion with fluid also seen within the right middle ear on CT Head cavity Chronic venous insufficiency with peripheral edema Hypothyroidism Steroid-induced myopathy DMII Orthostatic hypotension CKD stage II-III OHS Rabia intertrigo 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 T2DM with hyperglycemia secondary to corticosteroids Acute renal insufficiency on CKD stage 2-3 Hypokalemia Obesity, BMI 38.5 Chronic constipation/IBS-D Immunizations: Have You Had Influenza Vaccine: N/A Influenza Vaccine Date: Jun 18, 2012 History of Tetanus Vaccine?: Yes Tetanus Immunization Date: Mar 18, 2004 History of Pneumococcal: Yes Pneumococcal Date: May 31, 2010 History of Hepatitis B Vaccine: No Procedures: Chest xrays CTA Chest CT abd/pel KUB Bronchoscopy CT Head Consultations: Infectious Disease Pulmonology Medication Reconciliation New Medications: Apixaban (Eliquis) 5 Mg Tab 5 MG PO BID for 30 Days, #60 TAB Levofloxacin (Levaquin) 750 Mg Tab 750 MG PO DAILY for 8 Days, #8 TAB Lactobacillus Acidophilus (Lactinex Granules) 1 Gm Pack 1 GM PO TIDM for 8 Days, #24 EA Nutritional Supplements (Boost) 1 Liq Liq 1 CAN PO DAILY@1000,2100 for 30 Days Changed Medications: Insulin Glargine (Lantus Solostar) 100 Unit/Ml Inj 22 UNITS SC QAM for 30 Days (Changed from: 20 UNITS; Removed Quantity) Midodrine (Midodrine HCl) 2.5 Mg Tab 2.5 MG PO TID for 30 Days (Changed from: BP 130-160. CALL DR ALVES) BP 130-160. CALL Cardiology Prednisone Tab (Prednisone) 10 Mg Tab 50 MG PO DAILY, #70 TAB (Changed from: 30 MG; CURRENT DOSE: 32.5MG only adjusted by electric blanket packer..dr. anne) CURRENT DOSE: 50MG only adjusted by electric blanket packer..dr. anne Spironolactone (Spironolactone) 25 Mg Tab 25 MG PO QAM for 30 Days (Changed from: BID; Removed Quantity) Continued Medications: Acetamin/Butalbital/Caffeine (Fioricet) 1 Ea Tab 1 TAB PO Q4H PRN for Headache for 30 Days, #20 TAB Calcitriol (Calcitriol) 0.25 Mcg Cap 0.25 MCG PO DAILY TAKE WITH CALCIUM Calcium Carbonate (Calcium Carbonate) 1,250 Mg Tab 1250 MG PO HS Cholecalciferol (Vitamin D3) 2,000 Unit Cap 2000 UNITS PO BID for 90 Days, CAP 3 Refills Citalopram Hydrobromide (Citalopram Hydrobromide) 20 Mg Tab 30 MG PO DAILY, TAB Cyanocobalamin (Vitamin B-12) 500 Mcg Tab 1000 MCG PO QAM, TAB Dexlansoprazole (Dexilant) 60 Mg Cap 60 MG PO QAM Diclofenac Sodium (Topical) (Voltaren 1% Top Gel) 1 % Gel 1 APPLN TOP PRN UD Ferrous Sulfate (Iron) 325 Mg Tab 325 MG PO QAM for 30 Days Gabapentin (Neurontin) 300 Mg Cap 300 MG PO BID, CAP Insulin Aspart (Novolog Flexpen) 100 Units/Ml Inj SQ QPM SLIDING SCALE Ipratropium-Albuterol (Duoneb) 3 Ml Nebu 1 TREATMENT INH Q4H PRN for SOB/Wheezing, INHA Ipratropium-Albuterol (Combivent Respimat) 1 Aer Aer 1 PUFFS INH QID, INH Levothyroxine Sodium (Levothyroxine Sodium) 100 Mcg Tab 100 MCG PO QAM for 30 Days Linaclotide (Linzess) 290 Mcg Cap 290 MCG PO DAILY PRN for Constipation Lorazepam (Ativan) 0.5 Mg Tab 0.5 MG PO HS PRN for Sleep, TAB Melatonin (Melatonin) 10 Mg Tab 10 MG PO HS Nystatin (Topical) (Nystop) 100,000 Unit/Gm Pow 1 APPLN TOP TID Potassium Chloride (Potassium Chloride Er) 10 Meq Cap 20 MEQ PO BID for 30 Days Riboflavin (Riboflavin) 400 Mg Tab 400 MG PO QAM Ropinirole (Requip) 0.25 Mg Tab 0.25-0.5 MG PO HS, TAB Simvastatin (Zocor) 20 Mg Tab 20 MG PO HS, TAB Tiotropium [place] (Spiriva Respimat) 1.25 Mcg/Act Aer 2 PUFF INH DAILY, INHALER Tramadol (Ultram) 50 Mg Tab 50 MG PO QID Discontinued Medications: Hydrocodone W/ Homatropine (Hycodan 5/1.5MG 5 Ml) 1 Syp Syp 5 ML PO Q4H PRN for COUGH/PAIN, ML Prednisone (Prednisone) 2.5 Mg Tab 2.5 MG PO DAILY, TAB CURRENT DOSE: 32.5MG only adjusted by electric blanket packer..dr. anne Warfarin Sod (Coumadin) 5 Mg Tab 5 MG PO DAILY@16 for 30 Days, #30 TAB Discharge Exam Feeling well, SOB is at her baseline, no cough, moving bowels, akiko po, afebrile. Daughter requested I draw a lactate on her prior to discharge to prove she "doesn't have sepsis." Lacate was normal. Physical Exam General Appearance: no apparent distress, + obese Eyes: normal inspection, sclerae normal ENT: hearing grossly normal Neck: trachea midline Respiratory/Chest: lungs clear, normal breath sounds, no respiratory distress, no accessory muscle use Cardiovascular: regular rate, rhythm, no murmur, + pertinent finding (trace pitting edema bilat) Abdomen: normal bowel sounds, non tender, soft (but mildly distended) Extremities: no calf tenderness Neurologic/Psychiatric: alert, + depressed affect Skin: normal color, warm/dry, no rash Review of Systems: Constitutional: No fever, No chills Eyes: No problem reported ENT: No problem reported Respiratory: + shortness of breath (chronic) Cardiovascular: No chest pain Abdomen: No pain, No constipation Musculoskeletal: No problem reported Genitourinary - Female: No problem reported Neurologic: No problem reported Psychiatric: No problem reported Endocrine: + fatigue (chronic) Hematologic / Lymphatic: No problem reported Integumentary: No problem reported Hospital Course This pt is an 82 year old female with chronic hypoxic respiratory failure, COPD on 2 L home oxygen as baseline, recent bilateral DVTs and pulmonary embolism currently on Coumadin, chronic diastolic CHF vs venous insufficiency/LE edema, hypothyroidism, steroid-induced myopathy, DMII, orthostatic hypotension, and CKD stage II-III. Presented to the hospital with altered mental status, myalgia , worsening cough, and acute on chronic hypoxemic respiratory failure with multilobar PNA. Sepsis on admission secondary to multilobar pneumonia - underwent Bronchoscopy with BAL on 10/09. Improved/Stable. Is back at her baseline. Continues on 2LNC and is stable Gram-negative pneumonia as detected by bronchoalveolar wash culture--> growing out Bordetella bronchoseptica, sensitive to Levaquin and Zosyn-daughter was insisting pt be on Zosyn--> but now is agreeable to po Levaquin to avoid risk of PICC line that would be necessary for Zosyn - Discussed with ID--> thinks one week of Levaquin would be adequate, but can do Levaquin for total 2 weeks to acquiesce to daughter/pt wishes (today day # of Levaquin) -dcd Zosyn -Suspected influenza on admission despite neg rapid flu swab, treated empirically with five days of Tamiflu -Blood and urine cultures are negative -f/u fungal and Mycobacterium cxs, smears negative--> with Yeast not Rabia growing on fungal cx-reviewed with ID--> likely colonization, no need to treat Acute and chronic respiratory failure/COPD/OHS-improved, on 2LNC and POx high 90s -Status post bronchoscopy done by Dr. Matthew 10/09/2017, revealed mucoid impaction in the right middle lobe bronchus and lower lobe, status post appropriate lavage infection. Left lower lobe bronchus field moderate amount of mucopurulent secretions status post lavage. Patient tolerated the procedure well -Supportive care - NC O2, inhalers/nebs prn, etc. -Continue steroids and bronchodilators Tapered down steroids slowly-spoke with Pulm-she is to remain on prednisone 50mg daily until seen by Pulm in office Metabolic encephalopathy, improved, likely was multi factorial as above Rabia intertrigo fluconazole 150 mg PO x 1 given on 10/05 Nystatin Recent DVT with suspected PE-was already treated with Lovenox/Coumadin beginning 3 weeks ago at time of diagnosis DCd Coumadin and heparin drip after previous d/w daughter and patient and transitioned to Eliquis restarted Eliquis when INR< 2 -checked on $$ of Eliquis--> will be $30/month -continue Eliquis 5mg po bid x 6 months T2DM with hyperglycemia secondary to higher dose steroids - increased lantus to 22 units qAM and tightened carb coverage and correction factor for SSI -continue BSGs ac/hs. orthostatic hypotension - stable -continue midodrine. chronic diastolic CHF-last ECHO in 03/2017 with normal EF, no diastolic dysfunction but was technically difficult. 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 Acute renal insufficiency on CKD stage 2-3/Hypokalemia - creatinine was increased to 1.33, now improved with holding aldactone to 0.98 -with trace pitting edema in legs, restarted aldactone at lower dose of 25mg daily -continue K+20meq bid Discharged to home in stable condition with Home Health Total Time Spent: Greater than 30 minutes This includes examination of the patient, discharge planning, medication reconciliation, and communication with other providers. Discharge Instructions Please refer to the electronic Patient Visit Report (Discharge Instructions) for additional information. Follow-Up PCP and Pulmonology within 1-2 weeks Additional Copies To Michael De Souza M.D.; Chad Anne MD
[2017-10-18 12:07] VITALS: BP 136/79; PULSE 79; TEMP 36.6; O2SAT 100
[2017-10-18] MEDS ORDERED: LEVALBUTEROL 0.63MG/3 ML NEB INH PRN (15:00)
[2017-10-18] MEDS ORDERED: IPRATROPIUM BROMIDE NEB SOLN 0.02% 2.5 ML VIAL INH PRN (15:00)
[2017-10-21] MEDS ORDERED: APIXABAN 2.5 MG TAB PO SCH (08:00)
[2017-11-02 19:05] LABS: HERPES SIMPLEX VIRUS CULT NOT ISOLATED (NOT ISOLATED)
== END 2017-10-18 13:45 | disposition home health service (06) | DRG 853 ==
LOC: EDBD 13:00 → C.EDC 13:01 → UNDOADMIN 16:58 → C.2T 16:58 → ENRESERV 17:23 → C.2T 10-06 20:03 → C.MS4W 10-06 20:03
PROVIDERS: ADMIT Internal Medicine; ATTEND Family Medicine
PROC: 0B9 Respiratory System, Drainage (ICD-10-PCS; principal; 2017-10-09 08:00)
PROC: 0B9F8ZX Drainage of Right Lower Lung Lobe, Via Natural or Artificial Opening Endoscopic, Diagnostic (ICD-10-PCS; principal; 2017-10-09 08:00)
DX: A41.59 Other Gram-negative sepsis (principal); J15.6 Pneumonia due to other Gram-negative bacteria; J11.00 Influenza due to unidentified influenza virus with unspecified type of pneumonia; J96.21 Acute and chronic respiratory failure with hypoxia; G93.41 Metabolic encephalopathy; I26.99 Other pulmonary embolism without acute cor pulmonale; I50.32 Chronic diastolic (congestive) heart failure; G72.0 Drug-induced myopathy; E66.2 Morbid (severe) obesity with alveolar hypoventilation; J98.11 Atelectasis; T17.800A Unspecified foreign body in other parts of respiratory tract causing asphyxiation, initial encounter; I82.409 Acute embolism and thrombosis of unspecified deep veins of unspecified lower extremity; T38.0X5A Adverse effect of glucocorticoids and synthetic analogues, initial encounter; J44.9 Chronic obstructive pulmonary disease, unspecified; Z98.1 Arthrodesis status; E11.21 Type 2 diabetes mellitus with diabetic nephropathy; Z86.14 Personal history of Methicillin resistant Staphylococcus aureus infection; Z83.3 Family history of diabetes mellitus; Z79.4 Long term (current) use of insulin; Y92.019 Unspecified place in single-family (private) house as the place of occurrence of the external cause; Z86.718 Personal history of other venous thrombosis and embolism; Z79.01 Long term (current) use of anticoagulants; B37.2 Candidiasis of skin and nail; Z86.711 Personal history of pulmonary embolism; R79.1 Abnormal coagulation profile; F32.9 Major depressive disorder, single episode, unspecified; G25.81 Restless legs syndrome; E03.9 Hypothyroidism, unspecified; K21.9 Gastro-esophageal reflux disease without esophagitis; Z85.850 Personal history of malignant neoplasm of thyroid; N18.3 Chronic kidney disease, stage 3 (moderate); I95.1 Orthostatic hypotension; L30.4 Erythema intertrigo; E87.6 Hypokalemia; Z99.81 Dependence on supplemental oxygen; E11.65 Type 2 diabetes mellitus with hyperglycemia; Z68.38 Body mass index [BMI] 38.0-38.9, adult; Z79.52 Long term (current) use of systemic steroids

== ENCOUNTER → 2017-10-02 | Outpatient (CLI) | payer OTHER ==
[~2017-10-02] MED LIST changes: +APIX1TAB3 PO; +LCTXP PO; +LEVO1TAB35 PO; +LINA1CAP2 PO; +NUTR-7 PO; +PRMT25 PO
[2017-10-02 14:00] LABS: INR 3.5 (0.9-1.1)
--- NOTE | 2017-10-03 09:38 | CODING QUERY NO DIAGNOSIS ---
PLEASE PROVIDE COPY OF PHYSICIAN ORDER To promote full compliance with coding requirements relating to patient care, physician participation is requested in all cases of shaft repairer uncertainty. Please assist us with providing a copy of the original physician order including diagnosis and signature for the following services that were rendered on 10/02/17: PT/INR Thank you Ambreen Bruno [facility] Information Management Once completed, please kindly fax back to [phone] For questions please call [phone]
== END | disposition home or self-care (01) ==
LOC: C.LABSPEC 12:46
PROVIDERS: ATTEND Internal Medicine
DX: I82.409 Acute embolism and thrombosis of unspecified deep veins of unspecified lower extremity (principal); I26.99 Other pulmonary embolism without acute cor pulmonale

== ENCOUNTER → 2017-10-26 | Outpatient (CLI) | payer OTHER ==
[~2017-10-26] MED LIST changes: +APIX1TAB3 PO; +LCTXP PO; +LEVO1TAB35 PO; +LINA1CAP2 PO; +NUTR-7 PO; +PRMT25 PO
--- NOTE | 2017-10-26 14:11 | DIAGNOSTIC IMAGING REPORT ---
ULTRASOUND RIGHT LOWER EXTREMITY VENOUS CLINICAL HISTORY: Right lower extremity edema. COMPARISON STUDY: Bilateral lower extremity venous ultrasound dated 09/20/2017. TECHNIQUE: Real-time, grayscale, and color Doppler sonography of the deep veins of the right lower extremity was performed from the inguinal crease to the calf. Compression and augmentation were utilized. FINDINGS: Nonocclusive deep venous thrombosis is present within 1 of 2 popliteal veins. The common femoral femoral and superficial femoral veins are patent and normally compressible. The greater saphenous vein and the profunda femoris vein at the junction with the common femoral vein are clear. The visualized calf veins are patent. IMPRESSION: There is nonocclusive deep venous thrombosis again seen within 1 of 2 popliteal veins. This appears improved from 09/20/2017. Electronically signed by: Justo Mejias M.D. 10/26/2017 2:10 PM Dictated Date/Time: 10/26/2017 2:08 PM
[2017-10-26 17:54] LABS: ALBUMIN 3.4 gm/dl (3.4-5.0); ALT/SGPT 36 U/L (12-78); AST/SGOT 14 U/L (15-37); BLOOD UREA NITROGEN 30 mg/dl (7-18); CALCIUM 8.7 mg/dl (8.5-10.1); CARBON DIOXIDE 32 mmol/L (21-32); CREATININE 1.02 mg/dl (0.60-1.20); GLUCOSE 108 mg/dl (70-99); POTASSIUM 3.6 mmol/L (3.5-5.1); SODIUM 138 mmol/L (136-145)
[2017-10-26 17:58] LABS: ALKALINE PHOSPHATASE 50 U/L (45-117); TOTAL PROTEIN 6.6 gm/dl (6.4-8.2)
== END | disposition home or self-care (01) ==
LOC: C.ULTRBC 12:21
PROVIDERS: ATTEND Physician Assistant
DX: I82.4Z1 Acute embolism and thrombosis of unspecified deep veins of right distal lower extremity (principal); R60.9 Edema, unspecified; R05 Cough

== ENCOUNTER → 2017-11-02 | Outpatient (CLI) | payer OTHER ==
[~2017-11-02] MED LIST changes: +ACET1TAB84 PO; +AGMUDL4005 PO; -CMD5 PO; +DEXT30TA7 PO; +FERR1TAB13 PO; +FLUC150T PO; +HYDR-4079 PO; -HYDR5SYP11 PO; -LEVO1TAB35 PO; -LINA1CAP PO; -LVNIS100 SQ; -MIDO2.5T PO; +NYST80OI TOP; +POTA-639 PO; -PRD/25 PO; +PROB1TAB16 PO; +RSPS5 PO; +SPRIN/30 INH; +SUCR5SUS PO; +VANC1SUS PO; +VANC5CAP PO
[2017-11-02 17:18] LABS: HEMATOCRIT 39.8 % (37-47); HEMOGLOBIN 12.5 g/dL (12.0-16.0); MEAN CORPUSCULAR HEMOGLOBIN 31.4 pg (25-34); MEAN CORPUSCULAR HGB CONC 31.4 g/dl (32-36); MEAN PLATELET VOLUME 10.6 fL (7.4-10.4); NUCLEATED RED BLOOD CELL ABS 0.03 K/uL (0-0); PLATELET COUNT 188 K/uL (130-400); RED CELL DISTRIBUTION WIDTH CV 16.7 % (11.5-14.5); RED CELL DISTRIBUTION WIDTH SD 60.5 fL (36.4-46.3); WHITE BLOOD COUNT 8.03 K/uL (4.8-10.8)
[2017-11-02 17:26] LABS: ALBUMIN 3.2 gm/dl (3.4-5.0); ALT/SGPT 31 U/L (12-78); BLOOD UREA NITROGEN 27 mg/dl (7-18); CARBON DIOXIDE 30 mmol/L (21-32); GLUCOSE 133 mg/dl (70-99); POTASSIUM 3.9 mmol/L (3.5-5.1); SODIUM 141 mmol/L (136-145)
[2017-11-02 17:29] LABS: ALKALINE PHOSPHATASE 48 U/L (45-117); AST/SGOT 15 U/L (15-37); TOTAL PROTEIN 6.4 gm/dl (6.4-8.2)
== END | disposition home or self-care (01) ==
LOC: C.LABSPEC 16:42
PROVIDERS: ATTEND Internal Medicine
DX: D64.9 Anemia, unspecified (principal); J18.9 Pneumonia, unspecified organism; N18.9 Chronic kidney disease, unspecified

== ENCOUNTER → 2017-11-07 | Outpatient (CLI) | payer OTHER ==
[~2017-11-07] MED LIST changes: -ACET1TAB84 PO; -AGMUDL4005 PO; -DEXT30TA7 PO; -FERR1TAB13 PO; -FLUC150T PO; -HYDR-4079 PO; -NYST80OI TOP; -POTA-639 PO; -PROB1TAB16 PO; -RSPS5 PO; -SPRIN/30 INH; -SUCR5SUS PO; -VANC1SUS PO; -VANC5CAP PO
--- NOTE | 2017-11-07 11:29 | DIAGNOSTIC IMAGING REPORT ---
RIGHT LOWER EXTREMITY VENOUS DOPPLER CLINICAL HISTORY: Increasing right leg edema. No deep venous thrombus. COMPARISON STUDY: Right lower extremity venous Doppler October 26, 2017. TECHNIQUE: Sonography of the deep venous system of the right lower extremity was performed. Compression and augmentation were evaluated. FINDINGS: Nonocclusive thrombus within the right popliteal vein is similar to exam of October 26, 2017. No additional sites of deep venous thrombus were identified. IMPRESSION: No significant change in nonocclusive thrombus within the right popliteal vein since exam of October 26, 2017. Electronically signed by: Jake Lo M.D. 11/07/2017 11:28 AM Dictated Date/Time: 11/07/2017 11:26 AM
== END | disposition home or self-care (01) ==
LOC: C.ULTR 10:25
PROVIDERS: ATTEND Physician Assistant Medical
DX: R60.9 Edema, unspecified (principal); M79.604 Pain in right leg

== ENCOUNTER → 2017-12-05 | Outpatient (CLI) | payer OTHER ==
[~2017-12-05] MED LIST changes: +ACET1TAB84 PO; +AGMUDL4005 PO; +DEXT30TA7 PO; +FERR1TAB13 PO; +FLUC150T PO; +HYDR-4079 PO; +NYST80OI TOP; +POTA-639 PO; +PROB1TAB16 PO; +RSPS5 PO; +SPRIN/30 INH; +SUCR5SUS PO; +VANC1SUS PO; +VANC5CAP PO
[2017-12-05 14:25] LABS: HEMATOCRIT 38.9 % (37-47); HEMOGLOBIN 12.2 g/dL (12.0-16.0); MEAN CELL VOLUME 99.5 fL (80-100); MEAN CORPUSCULAR HEMOGLOBIN 31.2 pg (25-34); MEAN PLATELET VOLUME 10.5 fL (7.4-10.4); PLATELET COUNT 183 K/uL (130-400); RED CELL DISTRIBUTION WIDTH CV 16.7 % (11.5-14.5); RED CELL DISTRIBUTION WIDTH SD 59.6 fL (36.4-46.3); WHITE BLOOD COUNT 12.89 K/uL (4.8-10.8)
[2017-12-05 14:38] LABS: ALBUMIN 3.1 gm/dl (3.4-5.0); ALKALINE PHOSPHATASE 58 U/L (45-117); ALT/SGPT 33 U/L (12-78); AST/SGOT 17 U/L (15-37); BLOOD UREA NITROGEN 25 mg/dl (7-18); CALCIUM 8.6 mg/dl (8.5-10.1); CARBON DIOXIDE 28 mmol/L (21-32); CREATININE 1.02 mg/dl (0.60-1.20); GLUCOSE 231 mg/dl (70-99); POTASSIUM 4.4 mmol/L (3.5-5.1); SODIUM 137 mmol/L (136-145); TOTAL PROTEIN 6.3 gm/dl (6.4-8.2)
[2017-12-05 14:40] LABS: MEAN CORPUSCULAR HGB CONC 31.4 g/dl (32-36)
--- NOTE | 2017-12-12 07:55 | CODING QUERY NO DIAGNOSIS ---
Valid Physician Order Needed A valid physician order must be submitted in order to properly bill for the service(s) provided, including date of service(s), valid diagnosis, and physician signature. If these tests are done on a recurring basis the original physician order must be submitted in order to code and bill for the service(s) provided. Please fax us the original, signed physician order so that we may expedite billing to [phone] DOS: 12/05/2017 * CBC W/O DIFF * CMP Thank you Mann [facility] Information Management
== END | disposition home or self-care (01) ==
LOC: C.LABSPEC 14:14
PROVIDERS: ATTEND Internal Medicine
DX: Z01.89 Encounter for other specified special examinations (principal)

== ENCOUNTER → 2017-12-06 | Outpatient (CLI) | payer OTHER ==
[~2017-12-06] MED LIST changes: -AGMUDL4005 PO; -POTA-639 PO; +POTA20TA16 PO; -RSPS5 PO; -SUCR5SUS PO; -VANC1SUS PO; -VANC5CAP PO
== END | disposition home or self-care (01) ==
LOC: C.LAB 13:16
PROVIDERS: ATTEND Internal Medicine
DX: R05 Cough (principal)

== ENCOUNTER 2017-12-13 00:26 | Emergency (ER) | payer OTHER ==
[~2017-12-13] VITALS: Ht 167.6 cm; Wt 101.0 kg
[~2017-12-13 00:26] MED LIST changes: -ACET1TAB84 PO; -APIX1TAB3 PO; -DEXT30TA7 PO; -FERR1TAB13 PO; -FLUC150T PO; -HYDR-4079 PO; -NYST80OI TOP; -POTA20TA16 PO; -PROB1TAB16 PO; -SPRIN/30 INH
[2017-12-13 00:28] VITALS: TEMP 36.9; Ht 167.6 cm; Wt 101.0 kg
--- NOTE | 2017-12-13 00:37 | EMERGENCY ROOM VISIT NOTE ---
History Report prepared by Suzanna: Jp Hutton Under the Supervision of: Dr. Deepthi Lin M.D. First contact with patient: 00:30 Chief Complaint: FALL Stated Complaint: FALL/INCREASED WEAKNESS History of Present Illness The patient is an 82 year old female who presents to the Emergency Room after "sliding out of her chair" just prior to arrival. The patient is unsure how/why she slid out of her chest, but notes that she has constant pain in her right side. This pain in her right side is worsened by deep inhalation. She denies hitting her head on the fall. She does wear 4-5L of oxygen at home at baseline. The patient is incontinent of her bladder at baseline as well, and did urinate after the fall. 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 A total of 10 systems reviewed and were otherwise negative. 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 (13) UMANA (dyspnea on exertion) (14) Dyspnea, unspecified (15) Gastroesophageal reflux disease (16) Metabolic encephalopathy (17) MRSA pneumonia (18) Sepsis (19) Syncope due to orthostatic hypotension Family History Diabetes mellitus FH: cancer FH: gallbladder disease FH: heart disease FH: lung disease Hypertension Kidney disease or stones Social History Smoking Status: Never Smoker Alcohol Use: none Drug Use: none Marital Status: Housing Status: lives with family Occupation Status: retired Current/Historical Medications Scheduled Apixaban (Eliquis), 5 MG PO BID Calcitriol (Calcitriol), 0.25 MCG PO DAILY Calcium Carbonate (Calcium Carbonate), 1,250 MG PO HS Cholecalciferol (Vitamin D3), 1,000 UNITS PO DAILY Citalopram Hydrobromide (Citalopram Hydrobromide), 20 MG PO DAILY Cyanocobalamin (Vitamin B-12), 1,000 MCG PO QAM Dexlansoprazole (Dexilant), 60 MG PO QAM Dextromethorphan-Guaifenesin (Mucinex Dm), 1,200 MG PO Q12 Diclofenac Sodium (Topical) (Voltaren 1% Top Gel), 1 APPLN TOP PRN UD Ferrous Sulfate (Kp Ferrous Sulfate), 325 MG PO DAILY Fluconazole (Diflucan), 150 MG PO in 2 days Gabapentin (Neurontin), 300 MG PO BID Insulin Aspart (Novolog Flexpen), SQ QPM Insulin Glargine (Lantus Solostar), 22 SC QAM Levothyroxine Sodium (Levothyroxine Sodium), 100 MCG PO DAILY Melatonin (Melatonin), 10 MG PO HS Midodrine (Midodrine HCl), 2.5 MG PO TID Nystatin (Topical) (Nystop), 1 APPLN TOP TID Potassium Ext Rel (Klor-Con), 20 MEQ PO DAILY Probiotic Product (Probiotic), 1 TAB PO DAILY Riboflavin (Riboflavin), 400 MG PO QAM Simvastatin (Zocor), 20 MG PO HS Tiotropium [place] (Spiriva Handihaler), 2 PUFFS INH DAILY Tramadol (Ultram), 50 MG PO QID Scheduled PRN Acetamin/Butalbital/Caffeine (Fioricet), 1 TAB PO Q4 PRN for Headache Acetaminophen (Tylenol Arthritis Ext Rel), 650 MG PO Q4 PRN for Pain Hydrocodone/Acetaminophen 10MG/325MG ([place] 10MG/325MG), 1 TAB PO Q4H PRN for Pain Ipratropium-Albuterol (Duoneb), 1 TREATMENT INH Q4H PRN for SOB/Wheezing Linaclotide (Linzess), 290 MCG PO DAILY PRN for Constipation Lorazepam (Ativan), 0.5 MG PO HS PRN for Sleep Allergies Coded Allergies: Pneumococcal Vaccine (Verified Allergy, Severe, SHORTNESS OF BREATH, ) Erythromycin (Verified Allergy, Mild, RASH, 12/13/17) Adhesives (Verified Allergy, Unknown, TAPE-REDNESS, BLISTERS, 12/13/17) Metronidazole (Verified Allergy, Unknown, skin rash, 12/13/17) allergic to generic form Phenazopyridine (Verified Allergy, Unknown, abdominal pain/rash, 12/13/17) Polymyxin B (Verified Allergy, Unknown, 12/13/17) Salicylates (Verified Allergy, Unknown, pt states rash with ASA 325 but not ASA 81mg, 12/13/17) Tetracycline (Verified Allergy, Unknown, RASH, 12/13/17) Morphine (Verified Adverse Reaction, Intermediate, urinary retention - oral morphine only, 12/13/17) Diltiazem (Verified Adverse Reaction, Mild, FLUID RETENTION, 12/13/17) Metoclopramide (Verified Adverse Reaction, Mild, TREMORS, 12/13/17) Bacitracin (Verified Adverse Reaction, Unknown, "MAKES IT WORSE"-OK IF NOT OTC MEDICATION, 12/13/17) OKAY IF NOT OVER THE COUNTER MEDICATION Physical Exam Vital Signs Date Time Temp Pulse Resp B/P (MAP) Pulse Ox O2 Delivery O2 Flow Rate FiO2 12/13/17 04:05 85 18 141/81 95 12/13/17 03:31 152/78 12/13/17 03:06 85 18 96 Nasal Cannula 4.0 12/13/17 03:01 156/89 12/13/17 02:36 84 15 96 Nasal Cannula 4.0 12/13/17 02:31 87 16 152/88 96 Nasal Cannula 4.0 12/13/17 02:04 86 18 146/89 96 Room Air 4.0 12/13/17 00:43 92 12/13/17 00:28 36.9 91 22 144/84 Nasal Cannula 5.0 Physical Exam Vital signs reviewed. General: Chronically Ill-appearing elderly female, in no significant distress. HEENT: No scleral icterus, PERRLA, neck supple. Atraumatic. Cardiovascular: Regular rate and rhythm, no extra sounds. Pulmonary: Clear to auscultation bilaterally, normal work of breathing. n/c oxygen Abdomen: Moderately distended, tender to palpation of the ribs and pelvis bilaterally. Soft, positive bowel sounds. Musculoskeletal: Atraumatic, no peripheral edema. Full ROM of the bilateral LE without pain. Cervical spine is non-tender, no step-off or deformity. Neurologic: Patient awake alert and oriented x 3 Skin: Warm, dry, no rash Medical Decision & Procedures ER Provider Diagnostic Interpretation: Radiology results as stated below per my review and radiologist interpretation: CT HEAD: Comparison: CT Dated 10/02/2017. No acute intracranial hemorrhage or other acute intracranial abnormality. No skull fracture. Atrophy and chronic small vessel ischemic disease. Radiologist: Raven Rodriguez MD PELVIS X-RAY: Degenerative changes of the hips bilaterally are present. There is no acute fracture appreciated. Somewhat limited due to body habitus. CHEST X-RAY: Chest x-ray reveals implanted hardware of the cervical spine, bilateral shoulders, and lumbar spine. She has poor inspiratory effort, cardiomegaly, no focal lung consolidation. There is no obvious fractures. CT C SPINE: Comparison: CT date 09/19/2015 Evaluation of cervical spine limited due to osteopenia and artifact fro hardware . Postsurgical changes of the cervical spine from C3-C6 with associated artifact. No definite acute fracture or subluxation of the cervical spine accounting for limitations of exam. Radiologist: Raven Rodriguez. Laboratory Results 12/13/17 01:25 Red Blood Count 3.85, Mean Corpuscular Volume 96.6, Mean Corpuscular Hemoglobin 31.9, Mean Corpuscular Hemoglobin Concent 33.1, Mean Platelet Volume 10.1, Neutrophils (%) (Auto) 74.4, Lymphocytes (%) (Auto) 12.8, Monocytes (%) (Auto) 7.9, Eosinophils (%) (Auto) 0.1, Basophils (%) (Auto) 0.2, Neutrophils # (Auto) 6.28, Lymphocytes # (Auto) 1.08, Monocytes # (Auto) 0.67, Eosinophils # (Auto) 0.01, Basophils # (Auto) 0.02 12/13/17 01:25 Test 12/13/17 01:25 12/13/17 01:35 White Blood Count 8.45 K/uL (4.8-10.8) Red Blood Count 3.85 M/uL (4.2-5.4) Hemoglobin 12.3 g/dL (12.0-16.0) Hematocrit 37.2 % (37-47) Mean Corpuscular Volume 96.6 fL (80-100) Mean Corpuscular Hemoglobin 31.9 pg (25-34) Mean Corpuscular Hemoglobin Concent 33.1 g/dl (32-36) Platelet Count 182 K/uL (130-400) Mean Platelet Volume 10.1 fL (7.4-10.4) Neutrophils (%) (Auto) 74.4 % Lymphocytes (%) (Auto) 12.8 % Monocytes (%) (Auto) 7.9 % Eosinophils (%) (Auto) 0.1 % Basophils (%) (Auto) 0.2 % Neutrophils # (Auto) 6.28 K/uL (1.4-6.5) Lymphocytes # (Auto) 1.08 K/uL (1.2-3.4) Monocytes # (Auto) 0.67 K/uL (0.11-0.59) Eosinophils # (Auto) 0.01 K/uL (0-0.5) Basophils # (Auto) 0.02 K/uL (0-0.2) RDW Standard Deviation 58.4 fL (36.4-46.3) RDW Coefficient of Variation 16.7 % (11.5-14.5) Immature Granulocyte % (Auto) 4.6 % Immature Granulocyte # (Auto) 0.39 K/uL (0.00-0.02) Anion Gap 8.0 mmol/L (3-11) Est Creatinine Clear Calc Drug Dose 61.8 ml/min Estimated GFR () 72.9 Estimated GFR (Non- 62.9 BUN/Creatinine Ratio 26.7 (10-20) Calcium Level 8.1 mg/dl (8.5-10.1) Magnesium Level 2.1 mg/dl (1.8-2.4) Total Bilirubin 0.7 mg/dl (0.2-1) Direct Bilirubin 0.1 mg/dl (0-0.2) Aspartate Amino Transf (AST/SGOT) 13 U/L (15-37) Alanine Aminotransferase (ALT/SGPT) 39 U/L (12-78) Alkaline Phosphatase 56 U/L (45-117) Troponin I < 0.015 ng/ml (0-0.045) Total Protein 6.2 gm/dl (6.4-8.2) Albumin 3.1 gm/dl (3.4-5.0) Urine Color DK YELLOW Urine Appearance CLEAR (CLEAR) Urine pH 5.5 (4.5-7.5) Urine Specific [place] 1.027 (1.000-1.030) Urine Protein NEG (NEG) Urine Glucose (UA) 2+ (NEG) Urine Ketones NEG (NEG) Urine Occult Blood 1+ (NEG) Urine Nitrite NEG (NEG) Urine Bilirubin NEG (NEG) Urine Urobilinogen NEG (NEG) Urine Leukocyte Esterase NEG (NEG) Urine WBC (Auto) 10-30 /hpf (0-5) Urine RBC (Auto) 5-10 /hpf (0-4) Urine Hyaline Casts (Auto) 1-5 /lpf (0-5) Urine Epithelial Cells (Auto) 10-20 /lpf (0-5) Urine Bacteria (Auto) NEG (NEG) Urine Yeast (Auto) BUDDING (NONE PRSENT) Laboratory results per my review. Medications Administered Medications (Trade) Dose Ordered Sig/Natasha Route Start Time Stop Time Status Last Admin Dose Admin Tramadol HCl (Ultram Tab) 50 mg NOW STAT PO 12/13/17 00:51 12/13/17 00:54 DC 12/13/17 01:08 50 MG Acetaminophen (Tylenol Tab) 650 mg NOW STAT PO 12/13/17 00:51 12/13/17 00:54 DC 12/13/17 01:08 650 MG Fluconazole (Diflucan Tab) 150 mg NOW ONCE PO 12/13/17 03:45 12/13/17 03:46 DC 12/13/17 03:43 150 MG ECG Per My Interpretation Indication: weakness Rate (beats per minute): 92 Rhythm: normal sinus Findings: Q waves (Inferior), T-wave inversion (and flattening in the anterior) , other (No PVCs, No ESTER/STD) ED Course 0035: Past medical records reviewed. The patient was evaluated in room B6. A complete history and physical examination was performed. 0051: Ordered Tylenol 650 mg PO, Ultram 50 mg PO. 0336: Upon reevaluation, the patient appeared to have improvement of her symptoms. I discussed findings with her. She verbalized agreement of the treatment plan. The patient was discharged home. Medical Decision Differential diagnosis: Etiologies such as fracture, dislocation, intra-abdominal, pneumothorax, intrathoracic , intracranial, neurologic, as well as other traumatic pathologies were entertained. fracture, dislocation, intra-abdominal, pneumothorax, pulmonary contusion, hemothorax, intracranial, neurologic,as well as others were deemed relatively unlikely. This patient was evaluated and appeared to be in no significant distress. The patient appears to be chronically ill and is on her home nasal cannula oxygen at 4 L. Physical examination reveals a diffuse tenderness to the chest abdomen and pelvis. The patient has no focal source for the pain on exam. Chest x-ray was obtained and to my interpretation reveals no evidence of infiltrate, rib fracture or pneumonia. EKG reveals no evidence of acute ischemic changes. UA is negative for infection but concerning for yeast. Patient's daughter states she has been on Cipro and Augmentin most recently. Patient was given Diflucan 150 mg p.o., 1 tablet to take in 2 days. Patient will use caution when changing positions and attempting to ambulate. She will follow-up with her physician this week for reevaluation return to the ER for worsening of symptoms or any medical concerns. Medication Reconcilliation Current Medication List: was personally reviewed by me Blood Pressure Screening Patient's blood pressure: Normal blood pressure Impression Primary Impression: Vaginal yeast infection Additional Impression: Fall from chair, initial encounter Scribe Attestation The scribe's documentation has been prepared under my direction and personally reviewed by me in its entirety. I confirm that the note above accurately reflects all work, treatment, procedures, and medical decision making performed by me. Departure Information Dispostion Home / Self-Care Prescriptions Fluconazole (DIFLUCAN) 150 Mg Tab 150 MG PO in 2 days, #1 TAB Prov: Deepthi Lin M.D. 12/13/17 Referrals Michael De Souza M.D. (PCP) Forms HOME CARE DOCUMENTATION FORM, IMPORTANT VISIT INFORMATION Patient Instructions My [facility] Additional Instructions Diagnosis: Fall from chair, vaginal yeast Diflucan 150 mg given today in the ER, repeat in 48 hours. Continue your antibiotics as prescribed by Dr. De Souza. Follow-up with Dr. De Souza's office this week for reevaluation. Return to the emergency department for worsening of symptoms or any medical concerns. Problem Qualifiers
[2017-12-13] MEDS ORDERED: HYDR-4079 PO (00:46)
[2017-12-13] MEDS ORDERED: ACET1TAB84 PO (00:49)
[2017-12-13] MEDS ORDERED: DEXT30TA7 PO (00:51)
[2017-12-13] MEDS ORDERED: ACETAMINOPHEN 325 MG TAB PO STA (00:51)
[2017-12-13] MEDS ORDERED: TRAMADOL HCL 50 MG TAB PO STA (00:51)
[2017-12-13] MEDS ORDERED: LEVO100T7 PO (00:55)
[2017-12-13] MEDS ORDERED: NYST80OI TOP (00:57)
[2017-12-13] MEDS ORDERED: FRCT/ PO (01:00)
[2017-12-13] MEDS ORDERED: FERR1TAB13 PO (01:02)
[2017-12-13] MEDS ORDERED: POTA20TA16 PO (01:06)
[2017-12-13] MEDS ORDERED: INSDGIPEN SC (01:07)
[2017-12-13] MEDS ORDERED: PRMT25 PO (01:09)
[2017-12-13] MEDS ORDERED: SPRIN/30 INH (01:12)
[2017-12-13] MEDS ORDERED: PROB1TAB16 PO (01:16)
[2017-12-13] MEDS ORDERED: APIX1TAB3 PO (01:19)
[2017-12-13 01:32] LABS: BASO % 0.2 %; BASO ABS # 0.02 K/uL (0-0.2); EOS % 0.1 %; EOS ABS # 0.01 K/uL (0-0.5); HEMATOCRIT 37.2 % (37-47); HEMOGLOBIN 12.3 g/dL (12.0-16.0); IG# 0.39 K/uL (0.00-0.02); LYMPH % 12.8 %; LYMPH ABS # 1.08 K/uL (1.2-3.4); MEAN CELL VOLUME 96.6 fL (80-100); MEAN CORPUSCULAR HEMOGLOBIN 31.9 pg (25-34); MEAN CORPUSCULAR HGB CONC 33.1 g/dl (32-36); MEAN PLATELET VOLUME 10.1 fL (7.4-10.4); MONO % 7.9 %; MONO ABS # 0.67 K/uL (0.11-0.59); NEUT % 74.4 %; NEUT ABS # 6.28 K/uL (1.4-6.5); PLATELET COUNT 182 K/uL (130-400); RED CELL DISTRIBUTION WIDTH CV 16.7 % (11.5-14.5); RED CELL DISTRIBUTION WIDTH SD 58.4 fL (36.4-46.3); WHITE BLOOD COUNT 8.45 K/uL (4.8-10.8)
[2017-12-13 01:56] LABS: ALBUMIN 3.1 gm/dl (3.4-5.0); ALT/SGPT 39 U/L (12-78); AST/SGOT 13 U/L (15-37); BLOOD UREA NITROGEN 23 mg/dl (7-18); CALCIUM 8.1 mg/dl (8.5-10.1); CARBON DIOXIDE 29 mmol/L (21-32); CREATININE 0.87 mg/dl (0.60-1.20); GLUCOSE 108 mg/dl (70-99); SODIUM 139 mmol/L (136-145)
[2017-12-13 02:00] LABS: ALKALINE PHOSPHATASE 56 U/L (45-117); TOTAL PROTEIN 6.2 gm/dl (6.4-8.2)
[2017-12-13] MEDS ORDERED: FLUCONAZOLE 50 MG TAB PO ONE (03:45)
[2017-12-13] MEDS ORDERED: FLUC150T PO (03:45)
[2017-12-13 04:05] VITALS: BP 141/81; PULSE 85; O2SAT 95
--- NOTE | 2017-12-13 06:56 | DIAGNOSTIC IMAGING REPORT ---
CT SCAN OF THE BRAIN WITHOUT IV CONTRAST CLINICAL HISTORY: Fall. COMPARISON STUDY: CT of the brain dated 10/02/2017. TECHNIQUE: Unenhanced axial CT scan of the brain is performed from the vertex to the skull base. A dose lowering technique was utilized adhering to the principles of ALARA. CT DOSE: 729.78 mGycm FINDINGS: Brain parenchyma: There are age-related involutional changes noting moderate patchy subcortical and periventricular microangiopathic change. There is no hemorrhage, mass effect, or evidence of acute territorial ischemia by CT criteria. Ku-white matter is preserved. No extra-axial fluid collection is seen. Ventricles, sulci, cisterns: Prominent secondary to involutional change. Intracranial vasculature: There is atherosclerotic calcification of the cavernous carotid and vertebral arteries. Calvarium: The Skeletal structures are osteopenic. There is no depressed calvarial fracture. Sinuses and mastoids: The visualized paranasal sinuses are clear. There is a right mastoid effusion. The left mastoid air cells are well pneumatized. Orbits: The bony orbits are grossly intact. There are bilateral ocular lens implants. IMPRESSION: There is no hemorrhage, mass effect, or evidence of acute territorial ischemia by CT criteria. Electronically signed by: Justo Mejias M.D. 12/13/2017 6:54 AM Dictated Date/Time: 12/13/2017 6:53 AM
--- NOTE | 2017-12-13 07:06 | DIAGNOSTIC IMAGING REPORT ---
SINGLE VIEW CHEST CLINICAL HISTORY: Fall. FINDINGS: An AP, portable, upright chest radiograph is compared to study dated 10/04/2017 and correlated with chest CT dated 10/02/2017. The examination is degraded by portable technique and apical lordotic positioning. The heart is enlarged and there is atherosclerotic calcification of the thoracic aorta. The pulmonary vasculature is noncongested. Chronic interstitial thickening is similar to previous. Small pleural effusions are suspected. There are foci of bibasilar scarring/atelectasis. No airspace consolidation is seen typical for pneumonia. No pneumothorax is seen. The skeletal structures are osteopenic. Bilateral shoulder arthroplasties are in place. Extensive fusion hardware is seen in the lower cervical spine and at the thoracolumbar junction. There is widening at the acromioclavicular joints bilaterally. IMPRESSION: 1. Cardiomegaly without radiographic evidence of congestive failure. 2. Suspect trace pleural effusions. Electronically signed by: Justo Mejias M.D. 12/13/2017 7:05 AM Dictated Date/Time: 12/13/2017 7:03 AM
--- NOTE | 2017-12-13 07:29 | DIAGNOSTIC IMAGING REPORT ---
SINGLE VIEW PELVIS CLINICAL HISTORY: Fall. FINDINGS: An AP, portable, supine pelvic radiograph is compared to study dated 06/30/2016. The skeletal structures are osteopenic. There is no radiographic evidence of fracture involving the hips or bony pelvis. There is moderate to advanced arthritic change and joint space narrowing seen in both hips, right greater than left. Small enthesophytes arise from the anterior superior iliac spine bilaterally. Sclerotic change is noted in the sacroiliac joints and pubic symphysis. Lumbosacral spondylosis is partially imaged with evidence of lumbar spinal fusion and interposition bone graft. The overlying soft tissues are normal in appearance. There is atherosclerotic calcification of the femoral arteries. Calcified phlebolith are noted in the pelvis. IMPRESSION: Osteopenia and arthritic change as above. There is no radiographic evidence of fracture involving the hips or bony pelvis. Electronically signed by: Justo Mejias M.D. 12/13/2017 7:27 AM Dictated Date/Time: 12/13/2017 7:26 AM
--- NOTE | 2017-12-13 08:05 | DIAGNOSTIC IMAGING REPORT ---
CERVICAL SPINE W/O CLINICAL HISTORY: 82 years-old Female presenting with fall. TECHNIQUE: Multidetector CT of the cervical spine was performed without the use of intravenous contrast. IV contrast: None. A dose lowering technique was used consistent with the principles of ALARA (as low as reasonably achievable). COMPARISON: 07/07/2017. CT DOSE (mGy.cm): The estimated cumulative dose is 452.98 mGycm. 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 Cervical fusion hardware both anteriorly and posteriorly. Anterior cervical discectomy and fusion of C3-4 with interbody spacer. Additionally, anterior cervical discectomy and fusion of C4-C6 with a separate plate and screw fixation anteriorly. Interbody cage noted with corpectomy of C5. Posteriorly, screw and joe fixation noted bilaterally at C3-C5. Laminectomy defects at these levels. No hardware complication. No significant osseous neural foraminal or spinal canal narrowing. Straightening of normal lumbar lordosis. 3 mm of grade 1 anterolisthesis of C3 on C4, unchanged. Normal predental interval. No acute fracture or subluxation. Multiple bone islands noted throughout the cervical spine. There is a logic rotatory subluxation of C1 on C2 suggested. Trace fluid in the right mastoid air cells. Skull base intact. Cerumen noted in the bilateral external auditory canals. Lung apices clear. Soft tissues of the neck within normal limits allowing for noncontrast technique. IMPRESSION: 1. No acute osseous injury. 2. Postsurgical changes of anterior and posterior fusion with laminectomy defects as above. No hardware complication. 3. No significant osseous neural foraminal or spinal canal narrowing. Electronically signed by: Jorge Villafana M.D. 12/13/2017 8:03 AM Dictated Date/Time: 12/13/2017 6:58 AM
== END 2017-12-13 04:05 | disposition home or self-care (01) ==
LOC: EDBD 00:26 → C.EDB 00:29
DX: Z04.3 Encounter for examination and observation following other accident (principal); W07.XXXA Fall from chair, initial encounter; Y92.019 Unspecified place in single-family (private) house as the place of occurrence of the external cause; B37.3 Candidiasis of vulva and vagina; I50.30 Unspecified diastolic (congestive) heart failure; J96.91 Respiratory failure, unspecified with hypoxia; R26.2 Difficulty in walking, not elsewhere classified; J45.909 Unspecified asthma, uncomplicated; M19.011 Primary osteoarthritis, right shoulder; J98.6 Disorders of diaphragm; K21.9 Gastro-esophageal reflux disease without esophagitis; G93.41 Metabolic encephalopathy; Z86.14 Personal history of Methicillin resistant Staphylococcus aureus infection; Z87.01 Personal history of pneumonia (recurrent); Z83.3 Family history of diabetes mellitus; Z80.9 Family history of malignant neoplasm, unspecified; Z83.79 Family history of other diseases of the digestive system; Z82.49 Family history of ischemic heart disease and other diseases of the circulatory system; Z83.6 Family history of other diseases of the respiratory system; Z84.1 Family history of disorders of kidney and ureter; Z79.01 Long term (current) use of anticoagulants; Z79.4 Long term (current) use of insulin; Z79.899 Other long term (current) drug therapy; Z99.81 Dependence on supplemental oxygen; Z88.7 Allergy status to serum and vaccine; Z88.1 Allergy status to other antibiotic agents; Z91.048 Other nonmedicinal substance allergy status; Z88.5 Allergy status to narcotic agent; Z88.8 Allergy status to other drugs, medicaments and biological substances

== ENCOUNTER 2017-12-21 11:58 | Inpatient (IN) | payer OTHER ==
[~2017-12-21] VITALS: Ht 157.5 cm; Wt 99.5 kg
[~2017-12-21 11:58] MED LIST changes: +ACET1TAB84 PO; +APIX1TAB3 PO; +DEXT30TA7 PO; +FERR1TAB13 PO; -FERR1TAB23 PO; +FLUC150T PO; +HYDR-4079 PO; -IPRA1AER2 INH; -LCTXP PO; +NITROGLYCERIN 2% OINTMENT 30GM TUBE EXT SCH; -NUTR-7 PO; +POTA-639 PO; -POTA1CAP2 PO; -PRED10TA PO; +PROB1TAB16 PO; -ROPI0.25 PO; -SPR25 PO; +SPRIN/30 INH; -TIOT1AER2 INH
--- NOTE | 2017-12-21 12:51 | EMERGENCY ROOM VISIT NOTE ---
History Report prepared by Suzanna: Jp Hutton Under the Supervision of: Dr. Alexx Nicole M.D. First contact with patient: 12:02 Chief Complaint: RESPIRATORY PROBLEMS Stated Complaint: BREATHING DIFFICULTY Nursing Triage Summary: Per EMS reports, pt. had coughing episode this morning that worsened her baseline shortness of breath. Daughter also reported that she had a possible episode of emesis and aspiration with coughing fit. 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 Pt. also C/O generalized right sided pain. Patient states she wears oxygen at home. When asked how many liters, she states "whatever." Pt. denies bringing up anything with cough. History of Present Illness The patient is an 82 year old white female with a past medical history of abdominal pain, acute bronchitis, acute diastolic (congestive) heart failure, acute respiratory failure with hypoxia, ambulatory dysfunction, appendectomy, asthma, cervical vertebral fusion, dehydration, diaphragmatic paralysis, diarrhea, DJD of right shoulder, UMANA (dyspnea on exertion), dyspnea, unspecified , gastroesophageal reflux disease, metabolic encephalopathy, MRSA pneumonia, sepsis, and syncope due to orthostatic hypotension who presents to the Emergency Room with complaints of an intermittent cough and vomiting episode that occurred this morning, a few hours ago. This history was taken from the patient's daughter at bedside. She states that she has had a cough for a few days, and struggles to bring anything up as she only has use of one side of her diaphragm. The coughing episode this morning caused the patient to vomit, and she seemed to very short of breath following this episode. The patient's daughter is concerned that she may have aspirated on the emesis. She does believe the patient seemed to be at baseline yesterday. The patient herself denies any chest pain and notes that her shortness of breath is what is bothering her the most. Her SOB is currently worse than at her baseline. The patient was recently admitted to the hospital for multi-lobular pneumonia. She is having a follow-up with Dr. Kelly - Cardiology tomorrow for some recent ECG changes. The daughter also expressed concern over the patient's blood pressure readings today. Her blood pressure is lower than usual, and the patient has a history of syncopal episodes with low blood pressure. The patient does wear 5L of oxygen at home. Source of History: patient Onset: A few hours ago Position: chest Quality: other (Cough, vomiting, SOB) Timing: other (One vomiting episode this morning) Associated Symptoms: No chest pain Review of Systems See HPI for pertinent positives and negatives. A total of ten systems were reviewed and were otherwise negative. 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 (13) UMANA (dyspnea on exertion) (14) Dyspnea, unspecified (15) Gastroesophageal reflux disease (16) Metabolic encephalopathy (17) MRSA pneumonia (18) Sepsis (19) Syncope due to orthostatic hypotension Family History Diabetes mellitus FH: cancer FH: gallbladder disease FH: heart disease FH: lung disease Hypertension Kidney disease or stones Social History Smoking Status: Never Smoker Alcohol Use: none Drug Use: none Marital Status: Housing Status: lives with family Occupation Status: retired Current/Historical Medications Scheduled Amoxicillin/Clavulanate Potas (Augmentin 400MG/5ML), 11 ML PO BID Apixaban (Eliquis), 5 MG PO BID Calcitriol (Calcitriol), 0.25 MCG PO DAILY Calcium Carbonate (Calcium Carbonate), 1,250 MG PO HS Cholecalciferol (Vitamin D3), 1,000 UNITS PO DAILY Citalopram Hydrobromide (Citalopram Hydrobromide), 20 MG PO DAILY Cyanocobalamin (Vitamin B-12), 1,000 MCG PO QAM Dexlansoprazole (Dexilant), 60 MG PO QAM Dextromethorphan-Guaifenesin (Mucinex Dm), 1,200 MG PO Q12 Diclofenac Sodium (Topical) (Voltaren 1% Top Gel), 1 APPLN TOP PRN UD Ferrous Sulfate (Kp Ferrous Sulfate), 325 MG PO DAILY Gabapentin (Neurontin), 300 MG PO BID Insulin Aspart (Novolog Flexpen), SQ QPM Insulin Glargine (Lantus Solostar), 22 SC QAM Levothyroxine Sodium (Levothyroxine Sodium), 100 MCG PO DAILY Melatonin (Melatonin), 10 MG PO HS Midodrine (Midodrine HCl), 2.5 MG PO TID Nystatin (Topical) (Nystop), 1 APPLN TOP TID Potassium Ext Rel (Klor-Con), 20 MEQ PO DAILY Probiotic Product (Probiotic), 1 TAB PO DAILY Riboflavin (Riboflavin), 400 MG PO QAM Simvastatin (Zocor), 20 MG PO HS Tiotropium Kiron (Spiriva Handihaler), 2 PUFFS INH DAILY Tramadol (Ultram), 50 MG PO QID Scheduled PRN Acetamin/Butalbital/Caffeine (Fioricet), 1 TAB PO Q4 PRN for Headache Acetaminophen (Tylenol Arthritis Ext Rel), 650 MG PO Q4 PRN for Pain Hydrocodone/Acetaminophen 10MG/325MG (Eaton 10MG/325MG), 1 TAB PO Q4H PRN for Pain Ipratropium-Albuterol (Duoneb), 1 TREATMENT INH Q4H PRN for SOB/Wheezing Linaclotide (Linzess), 290 MCG PO DAILY PRN for Constipation Lorazepam (Ativan), 0.5 MG PO HS PRN for Sleep Allergies Coded Allergies: Pneumococcal Vaccine (Verified Allergy, Severe, SHORTNESS OF BREATH, ) Erythromycin (Verified Allergy, Mild, RASH, 12/21/17) Adhesives (Verified Allergy, Unknown, TAPE-REDNESS, BLISTERS, 12/21/17) Metronidazole (Verified Allergy, Unknown, skin rash, 12/21/17) allergic to generic form Phenazopyridine (Verified Allergy, Unknown, abdominal pain/rash, 12/21/17) Polymyxin B (Verified Allergy, Unknown, 12/21/17) Salicylates (Verified Allergy, Unknown, pt states rash with ASA 325 but not ASA 81mg, 12/21/17) Tetracycline (Verified Allergy, Unknown, RASH, 12/21/17) Morphine (Verified Adverse Reaction, Intermediate, urinary retention - oral morphine only, 12/21/17) Diltiazem (Verified Adverse Reaction, Mild, FLUID RETENTION, 12/21/17) Metoclopramide (Verified Adverse Reaction, Mild, TREMORS, 12/21/17) Bacitracin (Verified Adverse Reaction, Unknown, "MAKES IT WORSE"-OK IF NOT OTC MEDICATION, 12/21/17) OKAY IF NOT OVER THE COUNTER MEDICATION Physical Exam Vital Signs Date Time Temp Pulse Resp B/P (MAP) Pulse Ox O2 Delivery O2 Flow Rate FiO2 12/21/17 21:46 37.1 111 24 148/65 96 Nasal Cannula 4.0 18 20:17 38.7 110 26 148/82 94 Nasal Cannula 4.0 18 18:35 119 27 110/70 95 Nasal Cannula 4.0 12/21/18 16:30 105 26 96 Nasal Cannula 4.0 12/21/18 16:02 96 Nasal Cannula 4.0 18 16:01 134/86 18 16:00 109 23 18 15:31 82 Nasal Cannula 4.0 12/21/18 15:30 97 24 94 Nasal Cannula 4.0 18 15:25 99 27 94 Nasal Cannula 4.0 18 15:20 99 26 95 Nasal Cannula 4.0 18 15:15 96 24 97 Nasal Cannula 4.0 18 15:10 96 24 96 Nasal Cannula 4.0 18 15:05 96 24 96 Nasal Cannula 4.0 18 15:00 95 24 97 Nasal Cannula 4.0 18 14:55 95 24 96 Nasal Cannula 4.0 18 14:50 94 25 94 Nasal Cannula 4.0 18 14:45 94 26 95 Nasal Cannula 4.0 18 14:40 94 24 95 Nasal Cannula 4.0 12/21/18 14:35 92 25 96 Nasal Cannula 4.0 18 14:30 93 29 92 Nasal Cannula 4.0 18 14:28 149/69 88 Nasal Cannula 4.0 12/21/18 14:05 97 24 97 Nasal Cannula 4.0 12/21/18 14:00 95 22 96 Nasal Cannula 4.0 18 13:42 101 20 155/77 95 Nasal Cannula 4.0 5/18 12:55 98 20 137/69 96 Nasal Cannula 4.0 5/18 12:48 98 4/5/18 12:41 96 Nasal Cannula 4.0 45/18 12:00 97 Nasal Cannula 4.0 45/18 12:00 97 Nasal Cannula 4.0 5/18 12:00 36.8 103 20 119/84 96 Nasal Cannula 4.0 Physical Exam GENERAL: Awake, alert, well-appearing, NAD. Nasal cannula in place. HENT: Normocephalic, atraumatic. EYES: Normal conjunctiva. Sclera non-icteric. NECK: Supple. No nuchal rigidity. FROM. RESPIRATORY: CTAB, no rhonchi, bibasilar crackles, no wheezing CARDIAC: Tachycardic with regular rhythm, no MRG ABDOMEN: Distended but Soft, NTND, BS+ MSK: No chest wall TTP, 1+ pitting edema in the right extremity. NEURO: GCS 14, follows commands, CN 2-12 intact, moves all 4s on command SKIN: No rash or jaundice noted. Medical Decision & Procedures ER Provider Diagnostic Interpretation: Radiology results as stated below per my review and radiologist interpretation: CT OF THE CHEST WITH IV CONTRAST CLINICAL HISTORY: r/o occult PNA, concern for aspiration, recent emesis/choking COMPARISON STUDY: No previous studies for comparison. TECHNIQUE: Following the IV administration of 92 mL of Optiray-320, CT of the thorax was performed from the thoracic inlet to the lung bases. Images are reviewed in the axial, sagittal, and coronal planes. IV contrast was administered without complication. A dose lowering technique was utilized adhering to the principles of ALARA. CT DOSE: 909.97 mGy.cm FINDINGS: Thoracic aorta: The ascending thoracic aorta measures 37 mm. Pulmonary vasculature: The pulmonary trunk is normal in caliber. There are no central filling defects identified to suggest pulmonary embolus. Note that this examination was not protocoled for the evaluation of pulmonary emboli. HEART: The heart is borderline enlarged. There are minimal coronary artery calcifications. Lungs and pleural spaces: Evaluation is significantly limited due to respiratory motion artifact. There is a small right pleural effusion. There is bibasal atelectasis. There is a stable 3 mm right upper lobe pulmonary nodule. There are subtle nodular airspace opacities within the right perihilar region, consistent with a pneumonitis. Mediastinum: There is no mediastinal lymphadenopathy. Jenny: There is no evidence of pathologic hilar adenopathy Axilla: There is no evidence of pathologic axillary lymphadenopathy Upper abdomen: Surgical clips are visualized in the region of the right adrenal gland Skeletal structures: There are postsurgical changes present within the cervical spine, thoracolumbar spine, and both shoulders. IMPRESSION: 1. Study compromised due to respiratory motion artifact 2. Small right pleural effusion 3. Subtle nodular airspace opacities within the right perihilar region consistent with a pneumonitis. Electronically signed by: Edenilson Barrett M.D. 12/21/2017 2:36 PM Dictated Date/Time: 12/21/2017 2:27 PM CHEST ONE VIEW PORTABLE CLINICAL HISTORY: Respiratory distress COMPARISON STUDY: 12/13/2017 FINDINGS: The heart is normal in size. There is no overt failure. There is blunting of the right lateral costophrenic angle similar to the prior study. There are linear opacities the left lung base likely atelectatic. There is no lobar consolidation. There are postsurgical changes of the neck, thoracic and lumbar spines, both shoulders.[ IMPRESSION: No significant change from the prior study. Suspected small right pleural effusion. Subsegmental atelectatic changes at the left lung base. Electronically signed by: Edenilson Barrett M.D. 12/21/2017 1:09 PM Dictated Date/Time: 12/21/2017 1:08 PM Laboratory Results Test 12/21/17 12:48 12/21/17 12:52 12/21/17 20:14 Influenza Type A Antigen Neg for Influ A (NEG) Influenza Type B Antigen Neg for Influ B (NEG) Prothrombin Time 9.9 SECONDS (9.0-12.0) Prothromb Time International Ratio 0.9 (0.9-1.1) Activated Partial Thromboplast Time 21.8 SECONDS (21.0-31.0) Partial Thromboplastin Ratio 0.8 Venous Blood pH 7.42 (7.36-7.41) Venous Blood Partial Pressure CO2 48 mmHg (38.0-50.0) Venous Blood Partial Pressure O2 46 mmHg Venous Blood HCO3 30 mmol/L Venous Blood Oxygen Saturation 80.5 % Venous Blood Base Excess 5.1 mEq/L Troponin I < 0.015 ng/ml (0-0.045) Pro-B-Type Natriuretic Peptide 104 pg/ml (0-1800) Urine Color DK YELLOW Urine Appearance CLEAR (CLEAR) Urine pH 5.0 (4.5-7.5) Urine Specific Keiser > 1.045 (1.000-1.030) Urine Protein NEG (NEG) Urine Glucose (UA) NEG (NEG) Urine Ketones NEG (NEG) Urine Occult Blood NEG (NEG) Urine Nitrite NEG (NEG) Urine Bilirubin NEG (NEG) Urine Urobilinogen NEG (NEG) Urine Leukocyte Esterase NEG (NEG) Laboratory results reviewed by me Medications Administered Medications (Trade) Dose Ordered Sig/Natasha Route Start Time Stop Time Status Last Admin Dose Admin Sodium Chloride 500 ml @ 500 mls/hr Q1H STAT IV 12/21/17 13:29 12/21/17 14:28 DC 12/21/17 13:42 500 MLS/HR Amoxicillin/ Clavulanate Potassium (Amoxicillin/ Clavulanate 600MG/ 42.9MG 5 Ml JOANN) 875 mg ONE STAT PO 12/21/17 14:53 12/21/17 14:55 DC 12/21/17 16:38 875 MG Sodium Chloride 1,000 ml @ 999 mls/hr Q1H1M STAT IV 12/21/17 20:16 12/21/17 21:16 DC 12/21/17 21:13 999 MLS/HR Acetaminophen (Tylenol Tab) 650 mg NOW STAT PO 12/21/17 20:16 12/21/17 20:17 DC 12/21/17 21:13 650 MG Ceftriaxone Sodium (Rocephin Inj) 1 gm NOW STAT IV 12/21/17 20:31 12/21/17 20:32 DC 12/21/17 21:13 1 GM Nitroglycerin (Nitroglycerin 2% Oint) 1 inch Q6H EXT 12/21/17 00:00 12/22/17 00:40 DC 12/22/17 00:26 1 INCH ECG Per My Interpretation Indication: SOB/dyspnea Rate (beats per minute): 105 Rhythm: sinus tachycardia Findings: other (Normal intervals, normal axis, no STS or TWI) ED Course 1213: The patient was evaluated in room C8. A complete history and physical exam was performed. 1329: Ordered Sodium Chloride 500 mL @ 500 mL/hr IV. 1453: Ordered Amoxicillin/Clavulanate Potassium 875 mg PO. 1513: I discussed the case with Jaun Bach PA-C Pulmonology. He states that the Augmentin is appropriate, and he can see her in the clinic tomorrow. 2017: The patient's nurse has informed me that the patient is now tachycardic and febrile. I will page the hospitalist for an inpatient stay. Medical Decision Nursing notes reviewed. Ancillary studies and prior records reviewed. The patient is an 82 year old white female with a past medical history of abdominal pain, acute bronchitis, acute diastolic (congestive) heart failure, acute respiratory failure with hypoxia, ambulatory dysfunction, appendectomy, asthma, cervical vertebral fusion, dehydration, diaphragmatic paralysis, diarrhea, DJD of right shoulder, UMANA (dyspnea on exertion), dyspnea, unspecified , gastroesophageal reflux disease, metabolic encephalopathy, MRSA pneumonia, sepsis, and syncope due to orthostatic hypotension who presents to the Emergency Room with complaints of an intermittent cough and vomiting episode that occurred this morning, a few hours ago. Differential diagnosis: Etiologies such as infections, reactive airway disease, pneumonia, pneumothorax , COPD, CHF, cardiac ischemia, pulmonary embolism, musculoskeletal, gastrointestinal, as well as others were entertained. Patient was seen and evaluated at the bedside. Patient does have a recent admission for multifocal pneumonia. 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 The patient's family over the bedside of the patient had been trying to cough and then had an episode of emesis and was concerned about possible aspiration. Patient is a GCS of 14 on exam is able to follow commands and does state that she is not feeling very well and does state that she has had some worsening difficulty with breathing and shortness of breath. 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 Patient's blood work was fairly unremarkable. Patient has a normal white blood cell count. No anemia. Patient has a fairly normal gas pH is normal. Troponin is not elevated BNP is not elevated. EKG with no ischemic changes. Chest x-ray is otherwise clear. Lactate mildly elevated 2.6 with some prerenal azotemia so she was given [address] of fluids[address] A [address] of the chest was ordered in order to look for possible occult pneumonia or aspiration pneumonitis. Patient CT did show pneumonitis. Patient does not have any elevated white blood cell count. Patient did have a mildly elevated lactate but she was given fluids. Patient has not had any fever. I did speak with the on-call kosher inspector who agreed the patient could be seen in the morning but with any lack of fever or other concerning signs there was unlikely to be additional benefit from staying in the hospital. The patient was pending discharge however the patient did spike a fever and patient was tachycardic. The patient was given some Tylenol fluids and blood cultures were drawn. A cath urine was also obtained. The hospitalist was paged for admission given the patient's fever, tachycardia, and possible source being the aspiration pneumonitis which could potentially be developing into a pneumonia. Consults Time Called: [id number] Consulting Physician: Jaun Bach PA-C Pulmonology Returned Call: [phone] I discussed the case with Jaun Bach PA-C Pulmonology. He states that the Augmentin is appropriate, and he can see her in the clinic tomorrow. Additional Consults: Time Called: 2014 Consulted Physician: Jose Cutler Returned Call: Discussed with resident who will further evaluate and treat the patient. Impression Primary Impression: Pneumonitis Scribe Attestation The scribe's documentation has been prepared under my direction and personally reviewed by me in its entirety. I confirm that the note above accurately reflects all work, treatment, procedures, and medical decision making performed by me. Departure Information Dispostion Being Evaluated By Hospitalist Prescriptions Amoxicillin/Clavulanate Potas (AUGMENTIN 400MG/5ML) 400 Mg/5 Ml Susp 11 ML PO BID for 7 Days, #154 ML Prov: Alexx Nicole M.D. 12/21/17 Referrals Michael De Souza M.D. (PCP) Patient Instructions My [facility] Additional Instructions Please return to the emergency department if you have worsening or recurrent symptoms not amenable to at-home treatment. Please call for a follow-up appointment with her primary care physician. Please take your medications as prescribed. If you have other concerns and/or complaints please feel free to also call your primary care physician's office or return the ED for further evaluation, management, and treatment. Take your medications as prescribed. If taking an antibiotic consider taking a probiotic and/or eating yogurt, but at the least, please take with food as it can cause upset stomach. You have been examined and treated today on an emergency basis only. This is not a substitute for, or an effort to provide, complete comprehensive medical care. It is impossible to recognize and treat all injuries or illnesses in a single emergency department visit. It is therefore important that you follow up closely with [facility], your PCP, and/or your specialist(s). Call as soon as possible for an appointment. Thank you for your time and consideration. I look forward to speaking with you again soon. Please don't hesitate to call us if you have any questions.
--- NOTE | 2017-12-21 13:10 | DIAGNOSTIC IMAGING REPORT ---
CHEST ONE VIEW PORTABLE CLINICAL HISTORY: Respiratory distress COMPARISON STUDY: 12/13/2017 FINDINGS: The heart is normal in size. There is no overt failure. There is blunting of the right lateral costophrenic angle similar to the prior study. There are linear opacities the left lung base likely atelectatic. There is no lobar consolidation. There are postsurgical changes of the neck, thoracic and lumbar spines, both shoulders.[ IMPRESSION: No significant change from the prior study. Suspected small right pleural effusion. Subsegmental atelectatic changes at the left lung base. Electronically signed by: Edenilson Barrett M.D. 12/21/2017 1:09 PM Dictated Date/Time: 12/21/2017 1:08 PM
[2017-12-21 13:12] LABS: BASO % 0.1 %; BASO ABS # 0.01 K/uL (0-0.2); EOS % 0.2 %; EOS ABS # 0.02 K/uL (0-0.5); HEMATOCRIT 40.5 % (37-47); HEMOGLOBIN 13.1 g/dL (12.0-16.0); IG# 0.29 K/uL (0.00-0.02); LYMPH % 7.1 %; MEAN CELL VOLUME 97.8 fL (80-100); MEAN CORPUSCULAR HEMOGLOBIN 31.6 pg (25-34); MEAN CORPUSCULAR HGB CONC 32.3 g/dl (32-36); MEAN PLATELET VOLUME 10.2 fL (7.4-10.4); MONO % 4.8 %; MONO ABS # 0.48 K/uL (0.11-0.59); NEUT % 84.9 %; NUCLEATED RED BLOOD CELL ABS 0.04 K/uL (0-0); PLATELET COUNT 188 K/uL (130-400); RED CELL DISTRIBUTION WIDTH CV 16.6 % (11.5-14.5); RED CELL DISTRIBUTION WIDTH SD 58.6 fL (36.4-46.3)
[2017-12-21 13:23] LABS: INR 0.9 (0.9-1.1); PTT PATIENT 21.8 SECONDS (21.0-31.0)
[2017-12-21 13:26] LABS: ALBUMIN 3.1 gm/dl (3.4-5.0); ALT/SGPT 33 U/L (12-78); BLOOD UREA NITROGEN 25 mg/dl (7-18); CALCIUM 8.6 mg/dl (8.5-10.1); CARBON DIOXIDE 28 mmol/L (21-32); CREATININE 1.02 mg/dl (0.60-1.20); GLUCOSE 124 mg/dl (70-99); POTASSIUM 3.9 mmol/L (3.5-5.1); SODIUM 143 mmol/L (136-145)
[2017-12-21 13:26] LABS: INFLUENZA B ANTIGEN Neg for Influ B (NEG)
[2017-12-21] MEDS ORDERED: SODIUM CHLORIDE 0.9% 500ML 500 ML IV STA (13:29)
[2017-12-21 13:31] LABS: ALKALINE PHOSPHATASE 54 U/L (45-117); AST/SGOT 16 U/L (15-37); TOTAL PROTEIN 6.4 gm/dl (6.4-8.2)
[2017-12-21] MEDS ORDERED: OPTIRAY 320 IV PRN (14:15)
--- NOTE | 2017-12-21 14:38 | DIAGNOSTIC IMAGING REPORT ---
CT OF THE CHEST WITH IV CONTRAST CLINICAL HISTORY: r/o occult PNA, concern for aspiration, recent emesis/choking COMPARISON STUDY: No previous studies for comparison. TECHNIQUE: Following the IV administration of 92 mL of Optiray-320, CT of the thorax was performed from the thoracic inlet to the lung bases. Images are reviewed in the axial, sagittal, and coronal planes. IV contrast was administered without complication. A dose lowering technique was utilized adhering to the principles of ALARA. CT DOSE: 909.97 mGy.cm FINDINGS: Thoracic aorta: The ascending thoracic aorta measures 37 mm. Pulmonary vasculature: The pulmonary trunk is normal in caliber. There are no central filling defects identified to suggest pulmonary embolus. Note that this examination was not protocoled for the evaluation of pulmonary emboli. HEART: The heart is borderline enlarged. There are minimal coronary artery calcifications. Lungs and pleural spaces: Evaluation is significantly limited due to respiratory motion artifact. There is a small right pleural effusion. There is bibasal atelectasis. There is a stable 3 mm right upper lobe pulmonary nodule. There are subtle nodular airspace opacities within the right perihilar region, consistent with a pneumonitis. Mediastinum: There is no mediastinal lymphadenopathy. Jenny: There is no evidence of pathologic hilar adenopathy Axilla: There is no evidence of pathologic axillary lymphadenopathy Upper abdomen: Surgical clips are visualized in the region of the right adrenal gland Skeletal structures: There are postsurgical changes present within the cervical spine, thoracolumbar spine, and both shoulders. IMPRESSION: 1. Study compromised due to respiratory motion artifact 2. Small right pleural effusion 3. Subtle nodular airspace opacities within the right perihilar region consistent with a pneumonitis. Electronically signed by: Edenilson Barrett M.D. 12/21/2017 2:36 PM Dictated Date/Time: 12/21/2017 2:27 PM
[2017-12-21] MEDS ORDERED: AMOXICILLIN/CLAVULANATE POTAS 600 MG/5 ML UDP PO STA (14:53)
[2017-12-21] MEDS ORDERED: AGMUDL4005 PO (17:24)
[2017-12-21] MEDS ORDERED: ACETAMINOPHEN 325 MG TAB PO STA (20:16)
[2017-12-21] MEDS ORDERED: SODIUM CHLORIDE 0.9% 1000ML 1,000 ML IV STA (20:16)
[2017-12-21] MEDS ORDERED: CEFTRIAXONE SOD INJ 1 GM ADDVIAL IV STA (20:31)
[2017-12-21] MEDS ORDERED: ALUMINUM/MAGNESIUM/SIMETH (MAALOX MAX) 30 ML UDC PO PRN (22:15)
[2017-12-21] MEDS ORDERED: MoRPHine SULFATE 2 MG/ML CARP IV PRN (22:15)
[2017-12-21] MEDS ORDERED: NITROGLYCERIN 0.4 MG SL PER TAB CHARGE SL PRN (22:15)
[2017-12-21] MEDS ORDERED: MAGNESIUM HYDROXIDE SUSP 30 ML UDC PO PRN (22:15)
[2017-12-21] MEDS ORDERED: ACETAMINOPHEN 325 MG TAB PO PRN (22:15)
[2017-12-21] MEDS ORDERED: ONDANSETRON INJ 2 MG/ML 2 ML VIAL IV PRN (22:15)
[2017-12-21] MEDS ORDERED: PIPERACILL/TAZOBAC CONSULT ACTIVE PRN (23:00)
[2017-12-21] MEDS ORDERED: DICLOFENAC SOD 1% GEL 100 GM TUBE EXT PRN (23:15)
[2017-12-21] MEDS ORDERED: ALBUT/IPRATROP 3MG/0.5MG NEB 3 ML VIAL INH PRN (23:15)
[2017-12-21] MEDS ORDERED: LORAZEPAM 0.5 MG TAB PO PRN (23:15)
[2017-12-21 23:38] VITALS: BP 130/66; PULSE 95; TEMP 37.7; O2SAT 95; BMI 38.3
--- NOTE | 2017-12-21 23:59 | History and Physical ---
History & Physical Date & Time of Service: Dec 21, 2017 at 23:01 Chief Complaint: Breathing Difficulty Primary Care Physician: Michael De Souza M.D. History of Present Illness Source: patient, family (daughter Delores - works in ER dept. 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 Per daughter there is a concern that the patient may have aspirated some food she ate this AM. Pt is on 5L O2 at home for a hemiparesis of her diaphragm. Patient was recently being treated for a pneumonia with Augmentin, she is in the 2nd week of a two week course. Pt is prone to lung infections because of diaphragmatic hemiparesis - she sees a spring intern in [place]. Patient was also supposed to see Dr. Turner tomorrow for evaluation of "skipped heart beats". While daughter denies any recent falls there have been multiple near misses where a family member has to catch the patient. Sick contacts: After Easter everyone except pt got sick with a virus except the pt, daughter states that pt might be symptomatic from the flu. Pt is currently unable to tell me any of the history - per daughter at bedside, this is normal for her when she is tired and when it approaches night time. PMHx: Syncope from orthostatic hypotension. SHX: Daughter Delores works in the ER and is the primary historian. Past Medical/Surgical History Medical Problems: (1) Abdominal pain (2) Abdominal pain of unknown etiology (3) Acute bronchitis (4) Acute diastolic (congestive) heart failure (5) Acute respiratory failure with hypoxia (6) Ambulatory dysfunction (7) Appendectomy (8) Asthma (9) Bilateral lower leg cellulitis (10) Cardiac enzymes elevated (11) Cellulitis (12) Cellulitis of right leg (13) Cervical strain (14) Cervical vertebral fusion (15) Chest pain (16) Closed head injury (17) Constipation (18) Contusion, multiple sites (19) Cough (20) Dehydration (21) Diaphragmatic paralysis (22) Diarrhea (23) Dizziness (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 (25) UMANA (dyspnea on exertion) (26) Dyspnea (27) Dyspnea, unspecified (28) Fall (29) Fall (30) fall and orthostatic hypotension (31) Fall at home (32) Fall from chair, initial encounter (33) Fatigue (34) Gastroesophageal reflux disease (35) Head injury (36) Head injury (37) Head pain (38) Hematoma of right iliopsoas muscle (39) Hip pain (40) Hypocalcemia (41) Hypokalemia (42) Hypoxia (43) Hypoxia (44) Intractable pain (45) Intractable pain (46) Leg laceration (47) Lower extremity cellulitis (48) Lower extremity edema (49) Lower extremity venous stasis (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 (51) Metabolic encephalopathy (52) MRSA (methicillin resistant staph aureus) culture positive (53) MRSA pneumonia (54) Multiple contusions (55) Multiple rib fractures (56) Multiple rib fractures (57) Neck pain (58) Peripheral edema (59) Pleural effusion (60) Pleural effusion (61) PNA (pneumonia) (62) Pneumonia (63) Reactive airway disease (64) Rib fracture (65) Rib fractures (66) Rib fractures (67) Right flank pain (68) Right hip pain (69) Sepsis (70) Sepsis (71) Sepsis (72) Syncope (73) Syncope due to orthostatic hypotension (74) Thoracic back pain (75) Traumatic compression fracture of third thoracic vertebra (76) UTI (urinary tract infection) (77) Vaginal yeast infection (78) Weakness (79) Yeast vaginitis Family History Diabetes mellitus FH: cancer FH: gallbladder disease FH: heart disease FH: lung disease Hypertension Kidney disease or stones Social History Smoking Status: Never Smoker Smokeless Tobacco Use: No Alcohol Use: none Drug Use: none Marital Status: Housing status: lives with family Occupational Status: retired Immunizations History of Influenza Vaccine: N/A Influenza Vaccine Date: Jun 18, 2012 History of Tetanus Vaccine?: Yes Tetanus Immunization Date: Mar 18, 2004 History of Pneumococcal: Yes Pneumococcal Date: May 31, 2010 History of Hepatitis B Vaccine: No Allergies Coded Allergies: Pneumococcal Vaccine (Verified Allergy, Severe, SHORTNESS OF BREATH, ) Erythromycin (Verified Allergy, Mild, RASH, 12/21/17) Adhesives (Verified Allergy, Unknown, TAPE-REDNESS, BLISTERS, 12/21/17) Metronidazole (Verified Allergy, Unknown, skin rash, 12/21/17) allergic to generic form Phenazopyridine (Verified Allergy, Unknown, abdominal pain/rash, 12/21/17) Polymyxin B (Verified Allergy, Unknown, 12/21/17) Salicylates (Verified Allergy, Unknown, pt states rash with ASA 325 but not ASA 81mg, 12/21/17) Tetracycline (Verified Allergy, Unknown, RASH, 12/21/17) Morphine (Verified Adverse Reaction, Intermediate, urinary retention - oral morphine only, 12/21/17) Diltiazem (Verified Adverse Reaction, Mild, FLUID RETENTION, 12/21/17) Metoclopramide (Verified Adverse Reaction, Mild, TREMORS, 12/21/17) Bacitracin (Verified Adverse Reaction, Unknown, "MAKES IT WORSE"-OK IF NOT OTC MEDICATION, 12/21/17) OKAY IF NOT OVER THE COUNTER MEDICATION Home Medications Scheduled Amoxicillin/Clavulanate [place] (Augmentin 400MG/5ML), 11 ML PO BID Apixaban (Eliquis), 5 MG PO BID Calcitriol (Calcitriol), 0.25 MCG PO DAILY Calcium Carbonate (Calcium Carbonate), 1,250 MG PO HS Cholecalciferol (Vitamin D3), 1,000 UNITS PO DAILY Citalopram Hydrobromide (Citalopram Hydrobromide), 20 MG PO DAILY Cyanocobalamin (Vitamin B-12), 1,000 MCG PO QAM Dexlansoprazole (Dexilant), 60 MG PO QAM Dextromethorphan-Guaifenesin (Mucinex Dm), 1,200 MG PO Q12 Diclofenac Sodium (Topical) (Voltaren 1% Top Gel), 1 APPLN TOP PRN UD Ferrous Sulfate (Kp Ferrous Sulfate), 325 MG PO DAILY Gabapentin (Neurontin), 300 MG PO BID Insulin Aspart (Novolog Flexpen), SQ QPM Insulin Glargine (Lantus Solostar), 22 SC QAM Levothyroxine Sodium (Levothyroxine Sodium), 100 MCG PO DAILY Melatonin (Melatonin), 10 MG PO HS Midodrine (Midodrine HCl), 2.5 MG PO TID Nystatin (Topical) (Nystop), 1 APPLN TOP TID Potassium Ext Rel (Klor-Con), 20 MEQ PO DAILY Prednisone Tab (Prednisone), 40 MG PO DAILY Probiotic Product (Probiotic), 1 TAB PO DAILY Riboflavin (Riboflavin), 400 MG PO QAM Simvastatin (Zocor), 20 MG PO HS Sucralfate (Carafate), 10 ML PO QID Tiotropium [place] (Spiriva Handihaler), 2 PUFFS INH DAILY Tramadol (Ultram), 50 MG PO QID Scheduled PRN Acetamin/Butalbital/Caffeine (Fioricet), 1 TAB PO Q4 PRN for Headache Acetaminophen (Tylenol Arthritis Ext Rel), 650 MG PO Q4 PRN for Pain Hydrocodone/Acetaminophen 10MG/325MG (Clarence 10MG/325MG), 1 TAB PO Q4H PRN for Pain Ipratropium-Albuterol (Duoneb), 1 TREATMENT INH Q4H PRN for SOB/Wheezing Linaclotide (Linzess), 290 MCG PO DAILY PRN for Constipation Lorazepam (Ativan), 0.5 MG PO HS PRN for Sleep Review of Systems Unable to obtain ROS due to pt's underlying condition. Pt does state that "everything hurts" when asked to evaluate her pain. Per daughter this is normal for the patient to answer this way when she is sick. Physical Exam Vital Signs Date Time Temp Pulse Resp B/P (MAP) Pulse Ox O2 Delivery O2 Flow Rate FiO2 12/21/17 21:46 37.1 111 24 148/65 96 Nasal Cannula 4.0 12/21/17 20:17 38.7 110 26 148/82 94 Nasal Cannula 4.0 12/21/17 18:35 119 27 110/70 95 Nasal Cannula 4.0 12/21/17 16:30 105 26 96 Nasal Cannula 4.0 12/21/17 16:02 96 Nasal Cannula 4.0 12/21/17 16:01 134/86 12/21/17 16:00 109 23 12/21/17 15:31 82 Nasal Cannula 4.0 12/21/17 15:30 97 24 94 Nasal Cannula 4.0 12/21/17 15:25 99 27 94 Nasal Cannula 4.0 12/21/17 15:20 99 26 95 Nasal Cannula 4.0 18 15:15 96 24 97 Nasal Cannula 4.0 12/21/17 15:10 96 24 96 Nasal Cannula 4.0 12/21/17 15:05 96 24 96 Nasal Cannula 4.0 12/21/17 15:00 95 24 97 Nasal Cannula 4.0 12/21/17 14:55 95 24 96 Nasal Cannula 4.0 12/21/17 14:50 94 25 94 Nasal Cannula 4.0 12/21/17 14:45 94 26 95 Nasal Cannula 4.0 12/21/17 14:40 94 24 95 Nasal Cannula 4.0 12/21/17 14:35 92 25 96 Nasal Cannula 4.0 12/21/17 14:30 93 29 92 Nasal Cannula 4.0 12/21/17 14:28 149/69 88 Nasal Cannula 4.0 12/21/17 14:05 97 24 97 Nasal Cannula 4.0 12/21/17 14:00 95 22 96 Nasal Cannula 4.0 12/21/17 13:42 101 20 155/77 95 Nasal Cannula 4.0 12/21/17 12:55 98 20 137/69 96 Nasal Cannula 4.0 12/21/17 12:48 98 12/21/17 12:41 96 Nasal Cannula 4.0 12/21/17 12:00 97 Nasal Cannula 4.0 12/21/17 12:00 97 Nasal Cannula 4.0 12/21/17 12:00 36.8 103 20 119/84 96 Nasal Cannula 4.0 General Appearance: WD/WN, no apparent distress, + obese Head: normocephalic, atraumatic Eyes: normal inspection, PERRL ENT: normal ENT inspection Neck: supple Respiratory/Chest: chest non-tender, no respiratory distress, no accessory muscle use, + pertinent finding (difficult to assess due to large body habitus, maybe somce crackles in the RLL) Cardiovascular: normal peripheral pulses, + pertinent finding (frequent skipped beats, not tachycardic. ) Abdomen/GI: normal bowel sounds, non tender, soft, no organomegaly, no pulsatile mass Back: normal inspection, no CVA tenderness, no muscle spasm Extremities/Musculoskelatal: normal inspection, + pertinent finding (right sided calf tenderness, daughter states she is being treated with a DVT. ) Neurologic/Psych: french weaver II-XII nml as tested, no motor/sensory deficits, alert, normal mood/affect, + disoriented (oriented to person, no place or time - pt was tired however and this could be night time baseline. ) Diagnostics Laboratory Results Results Past 24 Hours Test 12/21/17 12:48 12/21/17 12:52 45/18 20:14 12/21/17 22:53 Range/Units Influenza Type A Antigen Neg for Influ A NEG Influenza Type B Antigen Neg for Influ B NEG White Blood Count 9.90 4.8-10.8 K/uL Red Blood Count 4.14 4.2-5.4 M/uL Hemoglobin 13.1 12.0-16.0 g/dL Hematocrit 40.5 37-47 % Mean Corpuscular Volume 97.8 80-100 fL Mean Corpuscular Hemoglobin 31.6 25-34 pg Mean Corpuscular Hemoglobin Concent 32.3 32-36 g/dl Platelet Count 188 130-400 K/uL Mean Platelet Volume 10.2 7.4-10.4 fL Neutrophils (%) (Auto) 84.9 % Lymphocytes (%) (Auto) 7.1 % Monocytes (%) (Auto) 4.8 % Eosinophils (%) (Auto) 0.2 % Basophils (%) (Auto) 0.1 % Neutrophils # (Auto) 8.40 1.4-6.5 K/uL Lymphocytes # (Auto) 0.70 1.2-3.4 K/uL Monocytes # (Auto) 0.48 0.11-0.59 K/uL Eosinophils # (Auto) 0.02 0-0.5 K/uL Basophils # (Auto) 0.01 0-0.2 K/uL RDW Standard Deviation 58.6 36.4-46.3 fL RDW Coefficient of Variation 16.6 11.5-14.5 % Immature Granulocyte % (Auto) 2.9 % Immature Granulocyte # (Auto) 0.29 0.00-0.02 K/uL Nucleated RBC Absolute Count (auto) 0.04 0-0 K/uL Nucleated Red Blood Cells % 0.4 % Prothrombin Time 9.9 9.0-12.0 SECONDS Prothromb Time International Ratio 0.9 0.9-1.1 Activated Partial Thromboplast Time 21.8 21.0-31.0 SECONDS Partial Thromboplastin Ratio 0.8 Venous Blood pH 7.42 7.36-7.41 Venous Blood Partial Pressure CO2 48 38.0-50.0 mmHg Venous Blood Partial Pressure O2 46 mmHg Venous Blood HCO3 30 mmol/L Venous Blood Oxygen Saturation 80.5 % Venous Blood Base Excess 5.1 mEq/L Sodium Level 143 136-145 mmol/L Potassium Level 3.9 3.5-5.1 mmol/L Chloride Level 107 98-107 mmol/L Carbon Dioxide Level 28 21-32 mmol/L Anion Gap 8.0 3-11 mmol/L Blood Urea Nitrogen 25 7-18 mg/dl Creatinine 1.02 0.60-1.20 mg/dl Est Creatinine Clear Calc Drug Dose 49.5 ml/min Estimated GFR () 60.2 Estimated GFR (Non- 51.9 BUN/Creatinine Ratio 24.0 10-20 Random Glucose 124 70-99 mg/dl Lactic Acid Level 2.6 0.4-2.0 mmol/L Calcium Level 8.6 8.5-10.1 mg/dl Magnesium Level 2.1 1.8-2.4 mg/dl Total Bilirubin 0.7 0.2-1 mg/dl Aspartate Amino Transf (AST/SGOT) 16 15-37 U/L Alanine Aminotransferase (ALT/SGPT) 33 12-78 U/L Alkaline Phosphatase 54 45-117 U/L Troponin I < 0.015 0-0.045 ng/ml Pro-B-Type Natriuretic Peptide 104 0-1800 pg/ml Total Protein 6.4 6.4-8.2 gm/dl Albumin 3.1 3.4-5.0 gm/dl Globulin 3.3 2.5-4.0 gm/dl Albumin/Globulin Ratio 0.9 0.9-2 Urine Color DK YELLOW Urine Appearance CLEAR CLEAR Urine pH 5.0 4.5-7.5 Urine Specific [place] > 1.045 1.000-1.030 Urine Protein NEG NEG Urine Glucose (UA) NEG NEG Urine Ketones NEG NEG Urine Occult Blood NEG NEG Urine Nitrite NEG NEG Urine Bilirubin NEG NEG Urine Urobilinogen NEG NEG Urine Leukocyte Esterase NEG NEG Microbiology Results 12/21/17 Blood Culture, Received Pending 12/21/17 Blood Culture, Received Pending Diagnostic Radiology CHEST ONE VIEW PORTABLE CLINICAL HISTORY: Respiratory distress COMPARISON STUDY: 12/13/2017 FINDINGS: The heart is normal in size. There is no overt failure. There is blunting of the right lateral costophrenic angle similar to the prior study. There are linear opacities the left lung base likely atelectatic. There is no lobar consolidation. There are postsurgical changes of the neck, thoracic and lumbar spines, both shoulders.[ IMPRESSION: No significant change from the prior study. Suspected small right pleural effusion. Subsegmental atelectatic changes at the left lung base. CT OF THE CHEST WITH IV CONTRAST CLINICAL HISTORY: r/o occult PNA, concern for aspiration, recent emesis/choking COMPARISON STUDY: No previous studies for comparison. TECHNIQUE: Following the IV administration of 92 mL of Optiray-320, CT of the thorax was performed from the thoracic inlet to the lung bases. Images are reviewed in the axial, sagittal, and coronal planes. IV contrast was administered without complication. A dose lowering technique was utilized adhering to the principles of ALARA. CT DOSE: 909.97 mGy.cm FINDINGS: Thoracic aorta: The ascending thoracic aorta measures 37 mm. Pulmonary vasculature: The pulmonary trunk is normal in caliber. There are no central filling defects identified to suggest pulmonary embolus. Note that this examination was not protocoled for the evaluation of pulmonary emboli. HEART: The heart is borderline enlarged. There are minimal coronary artery calcifications. Lungs and pleural spaces: Evaluation is significantly limited due to respiratory motion artifact. There is a small right pleural effusion. There is bibasal atelectasis. There is a stable 3 mm right upper lobe pulmonary nodule. There are subtle nodular airspace opacities within the right perihilar region, consistent with a pneumonitis. Mediastinum: There is no mediastinal lymphadenopathy. Jenny: There is no evidence of pathologic hilar adenopathy Axilla: There is no evidence of pathologic axillary lymphadenopathy Upper abdomen: Surgical clips are visualized in the region of the right adrenal gland Skeletal structures: There are postsurgical changes present within the cervical spine, thoracolumbar spine, and both shoulders. IMPRESSION: 1. Study compromised due to respiratory motion artifact 2. Small right pleural effusion 3. Subtle nodular airspace opacities within the right perihilar region consistent with a pneumonitis. EKG Sinus tachycardia Premature supraventricular complexes Nonspecific T wave abnormality When compared with ECG of 13-DEC-2017 00:31, Premature supraventricular complexes are now Present Confirmed by MAURICE TURNER ([id number]) on 12/21/2017 1:25:20 PM Impression Assessment and Plan 82F presenting with cough and fatigue x 1 day. DDx include aspiration pneumonia and the flu. Aspiration Pneumonitis Witnessed aspiration episode. X-ray and CT suggest pneumonitis. Pt has already received approx 7 days of Augmentin Coverage from PCP. WIll start on Zosyn with an end date 3 days from now. Speech swallow eval. Nector thickened liquid and mechanical soft diet for now. Lactate Downtrending. Follow up Blood Cultures. Follow up Procalcitonin. Possible Flu. Acute onset of symptoms, recent contacts with a viral illness. Will treat empirically as flu despite negative flu swab - sensitivity of flu swab is low. IVF for hydration + PO. Starting Tamiflu - pharmacy OK to adjust dosing based on renal function. Prequent PVCs New finding on EKG, will consult cardiology whether an echo or intervention is warranted. Last echo in March 2017 showed, * 1. Severely technically limited. * 2. Grossly normal LV size and function. Cannot rule out regional walll motion abnormalities. * 3. RV not well visualized but appears grossly normal. * 4. No apparent significant valvular pathology. * 5. Compared with prior study on 11/30/2016: No significant changes. At present pt is unable to provide a good history, per daughter there have been near falls that she is wondering if related to the PVCs. Cardiology consulted. Admit to Tele. Near Falls (per daughter) Will evaluate with PT and OT. History of Orthostatic Hypotension c/w home med Midodrine. DM2 on Insulin Diabetic Control Consult. History of DVTs Per med rec pt is on Eliquis, daughter told me Dontaerelliyah, git most recent records from PCP showed Eliquis 5mg BID, will get Eliquis. Chronic Pain - c/w home meds, Gabapentin 300mg BID, Clarence PRN, voltaren gel and Ultram PRN. GERD - c/w PPI Near Falls - PT and OT on board. Depression - c/w Citalopram. Hypothyroid - c/w Synthroid HLD - c/w Zocor Asthma - Duonebs PRN, Spiriva daily. Insomnia - Ativan PRN for sleep Diet - DM2 & Heart Healthy, nector thickened liquid and mechanical soft. Elevated MCV - checking B12 and Folic acid. DVT Proph: AC as above (eliquis) Admit to Tele Full Code Attending addendum: I have physically seen this patient, have supervised the medical residents activities, and agree with the H&P unless as otherwise noted. Assessment and Plan: Aspiration pneumonitis-- The patient will be admitted to telemetry for serial cardiac enzymes, serial EKG's, cardiac rhythm monitoring and a 2-D echocardiogram with Dopplers. Zosyn IV Duonebs every 4 hours while awake and every 2 hours when necessary. Titrate nasal cannula oxygen to keep pulse ox greater than or equal to 91%. Empiric treatment with Tamiflu for documented exposure. Near falls/dehydration-- gently hydrate with IV fluids normal saline at 60 mL's per hour. Medications otherwise as above. Advanced Directives Existing Advance Directive: No Existing Living Will: No Existing Power of Carpenter Repairer: No Resuscitation Status VTE Prophylaxis Will order VTE Prophylaxis: Yes Social Service Consult Receiving Home Health Resident Involvement: Resident Care Provided Care Provided: Adult Hospital Medicine
[2017-12-22] VITALS (7 sets, daily range): BP systolic 126–149; BP diastolic 70–80; PULSE 82–108; TEMP 36.6–37.6; O2SAT 93–98
[2017-12-22] MEDS ORDERED: PIPERACILL/TAZOBAC IV 4.5 GM in NSS 100 ML IV SCH ×2
[2017-12-22] MEDS: NSS + 20MEQ KCL 1000ML 1,000 ML IV SCH ×2 (00:15→17:09)
[2017-12-22] MEDS ORDERED: PHARMACY GLYCEMIC MGMT CONSULT PRN (00:21)
[2017-12-22] MEDS ORDERED: GLUCAGON FOR INJ 1 MG VIAL SQ PRN (00:45)
[2017-12-22] MEDS ORDERED: DEXTROSE 50% 50 ML SYR IV PRN (00:45)
[2017-12-22] MEDS ORDERED: GLUCOSE 40% GEL 15 GM TUBE PO PRN (00:45)
[2017-12-22] MEDS ORDERED: GLUCOSE 10 TABS/TUBE PO PRN (00:45)
[2017-12-22 05:38] LABS: BASO % 0.1 %; BASO ABS # 0.01 K/uL (0-0.2); EOS % 0.1 %; EOS ABS # 0.01 K/uL (0-0.5); HEMATOCRIT 35.4 % (37-47); HEMOGLOBIN 11.4 g/dL (12.0-16.0); IG# 0.18 K/uL (0.00-0.02); LYMPH % 17.6 %; LYMPH ABS # 1.48 K/uL (1.2-3.4); MEAN CELL VOLUME 98.3 fL (80-100); MEAN CORPUSCULAR HEMOGLOBIN 31.7 pg (25-34); MEAN CORPUSCULAR HGB CONC 32.2 g/dl (32-36); MEAN PLATELET VOLUME 10.2 fL (7.4-10.4); MONO % 6.7 %; MONO ABS # 0.56 K/uL (0.11-0.59); NEUT % 73.4 %; NEUT ABS # 6.16 K/uL (1.4-6.5); NUCLEATED RED BLOOD CELL ABS 0.02 K/uL (0-0); PLATELET COUNT 162 K/uL (130-400); RED CELL DISTRIBUTION WIDTH SD 61.4 fL (36.4-46.3)
[2017-12-22] MEDS: LEVOTHYROXINE 100 MCG TAB PO SCH (06:00)
[2017-12-22] MEDS: PIPERACILL/TAZOBAC IV 4.5 GM in NSS 100 ML IV SCH ×2 (06:00→13:38)
[2017-12-22] MEDS: NITROGLYCERIN 2% OINTMENT 30GM TUBE EXT SCH ×3 (06:00→17:49)
[2017-12-22 06:07] LABS: ALBUMIN 2.5 gm/dl (3.4-5.0); CALCIUM 7.7 mg/dl (8.5-10.1); CREATININE 1.06 mg/dl (0.60-1.20); POTASSIUM 3.6 mmol/L (3.5-5.1)
[2017-12-22 06:10] LABS: TOTAL PROTEIN 5.4 gm/dl (6.4-8.2)
[2017-12-22] MEDS: HYDROCODONE/ACETAMI 10/325 TAB PO PRN (06:24)
[2017-12-22] MEDS: CITALOPRAM 20 MG TAB PO SCH (07:41)
[2017-12-22] MEDS: APIXABAN 2.5 MG TAB PO SCH ×2 (07:42→21:08)
[2017-12-22] MEDS: MIDODRINE 2.5 MG TAB PO SCH ×3 (07:42→17:48)
[2017-12-22] MEDS: GABAPENTIN 300 MG CAP PO SCH ×2 (07:43→21:09)
[2017-12-22] MEDS: CYANOCOBALAMIN 500 MCG TAB (VIT B-12) PO SCH (07:43)
[2017-12-22] MEDS: PANTOprazole SOD 40 MG TAB PO SCH (07:43)
[2017-12-22] MEDS: OSELTAMIVIR PHOSPHATE 75 MG CAP PO SCH ×2 (07:43→21:09)
[2017-12-22] MEDS: POTASSIUM CHLORIDE 20 MEQ TABCR PO SCH (07:43)
[2017-12-22] MEDS: INSULIN ASPART 100 UNITS/ML 3 ML PEN SC SCH ×5 (07:44→21:00)
[2017-12-22] MEDS: TIOTROPIUM BROMIDE 5 PUFF/90 MCG INH INH SCH (07:45)
[2017-12-22] MEDS: NYSTATIN POWDER 15GM BTL EXT SCH ×3 (07:45→21:07)
--- NOTE | 2017-12-22 08:15 | Clinical Documentation Query ---
CLINICAL DOCUMENTATION QUERY 82-y/o female who is being treated for aspiration pneumonia. Patient had become febrile, tachycardic, and hypoxic on supplemental O2. In your clinical opinion is this patient being managed for: ( ) Acute respiratory failure in setting of aspiration pneumonia ( ) Not Agree ( ) Other explanation of clinical findings (Please Explain) ( ) Unable to determine (Please Define) ( ) Need to Discuss The medical record reflects the following clinical findings, treatment, and risk factors. Clinical Indicators: Tmax 38.7 97-119 20-27 110/70 88% 4L NC. Treatment: O2, IV Zosyn, Risk Factors: Age, pneumonia, diaphragmatic hemiparesis, obesity Please clarify and document your clinical opinion in the progress notes and discharge summary. Terms such as "probable", "suspected", "likely", "questionable", "possible", or "still to be ruled out" are acceptable. IF IN AGREEMENT, YOU MUST DOCUMENT ABOVE DIAGNOSTIC STATEMENT IN DAILY PROGRESS NOTES AND DISCHARGE SUMMARY. This document is not part of the patient's record. Thank You, Wojciech Cid, RN [phone]
--- NOTE | 2017-12-22 08:16 | Clinical Documentation Query ---
CLINICAL DOCUMENTATION QUERY 82-y/o female who is being treated for aspiration pneumonia. Patient had become febrile, tachycardic, and hypoxic on supplemental O2. In your clinical opinion is this patient being managed for: ( ) Acute respiratory failure in setting of aspiration pneumonia (x ) Not Agree ( ) Other explanation of clinical findings (Please Explain) ( ) Unable to determine (Please Define) ( ) Need to Discuss The medical record reflects the following clinical findings, treatment, and risk factors. Clinical Indicators: Tmax 38.7 97-119 20-27 110/70 88% 4L NC. Treatment: O2, IV Zosyn, Risk Factors: Age, pneumonia, diaphragmatic hemiparesis, obesity Please clarify and document your clinical opinion in the progress notes and discharge summary. Terms such as "probable", "suspected", "likely", "questionable", "possible", or "still to be ruled out" are acceptable. IF IN AGREEMENT, YOU MUST DOCUMENT ABOVE DIAGNOSTIC STATEMENT IN DAILY PROGRESS NOTES AND DISCHARGE SUMMARY. This document is not part of the patient's record. Thank You, Wojciech Cid, RN [phone]
[2017-12-22] MEDS ORDERED: APIXABAN 2.5 MG TAB PO SCH (09:00)
[2017-12-22] MEDS ORDERED: RIVAROXABAN TAB 15 MG TAB PO SCH (09:00)
[2017-12-22] MEDS ORDERED: PIPERACILL/TAZOBAC IV 3.375 GM in DEXTROSE 5% 100ML 100 ML IV SCH (09:00)
[2017-12-22] MEDS: TRAMADOL HCL 50 MG TAB PO SCH ×4 (09:57→21:15)
[2017-12-22] MEDS ORDERED: INSULIN GLARGINE SOLOSTAR 100 UNITS/ML 3 ML PEN SC SCH (10:00)
--- NOTE | 2017-12-22 11:16 | Family Medicine Progress Note ---
Progress Note Date of Service Dec 22, 2017. Subjective Pt evaluation today including: conversation w/ patient, physical exam, chart review, lab review, review of inpatient medication list reports that breathing is better feels a little better this morning No concerns Unable to get much more of a history Constitutional: + fever, + chills Eyes: No worsening of vision Respiratory: + shortness of breath, + dyspnea on exertion, No cough, No sputum Cardiovascular: No chest pain Abdomen: No pain, No nausea, No vomiting, No diarrhea Female : No dysuria, No urinary frequency Medications Medications (Trade) Dose Ordered Sig/Natasha Route Start Time Stop Time Status Last Admin Dose Admin Sodium Chloride 1,000 ml @ 999 mls/hr Q1H1M STAT IV 12/21/17 20:16 12/21/17 21:16 DC 12/21/17 21:13 999 MLS/HR Acetaminophen (Tylenol Tab) 650 mg NOW STAT PO 12/21/17 20:16 12/21/17 20:17 DC 12/21/17 21:13 650 MG Ceftriaxone Sodium (Rocephin Inj) 1 gm NOW STAT IV 12/21/17 20:31 12/21/17 20:32 DC 12/21/17 21:13 1 GM Oseltamivir Phosphate (Tamiflu Cap) 75 mg BID PO 12/22/17 09:00 12/27/17 08:59 12/22/17 07:43 75 MG Potassium Chloride/Sodium Chloride 1,000 ml @ 60 mls/hr [id number] IV 12/21/17 23:59 01/20/18 23:58 12/22/17 00:15 60 MLS/HR Citalopram Hydrobromide (celeXA TAB) 20 mg DAILY PO 12/22/17 09:00 01/21/18 08:59 12/22/17 07:41 20 MG Cyanocobalamin (Vitamin B-12 Tab) 1,000 mcg QAM PO 12/22/17 09:00 01/21/18 08:59 12/22/17 07:43 1,000 MCG Gabapentin (Neurontin Cap) 300 mg BID PO 12/22/17 09:00 01/21/18 08:59 12/22/17 07:43 300 MG Acetaminophen/ Hydrocodone Bitart ([place] 10/325 Tab) 1 tab Q4H PRN PO 12/21/17 23:15 01/04/18 23:14 12/22/17 06:24 1 TAB Levothyroxine Sodium (Synthroid Tab) 100 mcg DAILYBB PO 12/22/17 06:00 01/21/18 05:59 12/22/17 06:00 100 MCG Midodrine (Proamatine Tab) 2.5 mg TID@0800,1200,1800 PO 12/22/17 08:00 01/21/18 07:59 12/22/17 10:33 2.5 MG Nystatin (Mycostatin Powder) 1 appln TID EXT 12/22/17 09:00 01/21/18 08:59 12/22/17 10:22 1 APPLN Potassium Chloride (Klor-Con Tab) 20 meq DAILY PO 12/22/17 09:00 01/21/18 08:59 12/22/17 07:43 20 MEQ Tiotropium [place] (Spiriva Handihaler Inhaler) 1 puff DAILY INH 12/22/17 09:00 01/21/18 08:59 12/22/17 07:45 1 PUFF Tramadol HCl (Ultram Tab) 50 mg QID PO 12/22/17 09:00 01/21/18 08:59 12/22/17 10:22 50 MG Pantoprazole Sodium (Protonix Tab) 40 mg QAM PO 12/22/17 09:00 01/21/18 08:59 12/22/17 07:43 40 MG Piperacillin Sod/ Tazobactam Sod 4.5 gm/Sodium Chloride 120 ml @ 30 mls/hr TODAY@0000 IV 12/22/17 00:00 12/22/17 03:59 DC 12/22/17 00:15 30 MLS/HR Nitroglycerin (Nitroglycerin 2% Oint) 1 inch Q6H EXT 12/22/17 06:00 01/21/18 05:59 12/22/17 10:33 1 INCH Insulin Aspart (novoLOG ASPART) SLIDING SCALE ACHS SC 12/22/17 07:00 01/21/18 06:59 12/22/17 13:40 4 UNITS Apixaban (Eliquis Tab) 5 mg BID PO 12/22/17 09:00 01/21/18 08:59 12/22/17 07:42 5 MG Piperacillin Sod/ Tazobactam Sod 4.5 gm/Sodium Chloride 120 ml @ 30 mls/hr Q8H IV 12/22/17 06:00 12/22/17 14:34 DC 12/22/17 13:38 30 MLS/HR Insulin Glargine (Lantus Solostar Pen) 5 units QAM SC 12/22/17 10:00 01/21/18 09:59 12/22/17 10:30 5 UNITS Objective Vital Signs Date Time Temp Pulse Resp B/P (MAP) Pulse Ox O2 Delivery O2 Flow Rate FiO2 12/22/17 16:00 93 Nasal Cannula 4.0 12/22/17 15:45 36.9 93 18 134/79 (97) 93 12/22/17 12:00 Nasal Cannula 4.0 12/22/17 12:00 Nasal Cannula 4.0 12/22/17 10:31 37.1 90 16 130/75 (93) 97 Nasal Cannula 4.0 12/22/17 08:00 Nasal Cannula 4.0 12/22/17 07:32 37.0 96 20 144/70 (94) 96 Nasal Cannula 4.0 12/22/17 04:00 Nasal Cannula 4.0 12/22/17 03:25 37.6 108 20 149/80 (103) 96 Nasal Cannula 4.0 12/21/17 23:59 Nasal Cannula 4.0 12/21/17 23:38 37.7 95 20 130/66 95 Nasal Cannula 4.0 12/21/17 23:12 37.1 104 24 135/67 95 12/21/17 23:03 37.1 104 24 135/67 95 Nasal Cannula 4.0 12/21/17 21:46 37.1 111 24 148/65 96 Nasal Cannula 4.0 12/21/17 20:17 38.7 110 26 148/82 94 Nasal Cannula 4.0 12/21/17 18:35 119 27 110/70 95 Nasal Cannula 4.0 Physical Exam General Appearance: no apparent distress Eyes: PERRL, EOMI ENT: hearing grossly normal Neck: supple Respiratory/Chest: no respiratory distress, no accessory muscle use, + decreased breath sounds Cardiovascular: regular rate, rhythm, no murmur Abdomen: normal bowel sounds, non tender, soft Extremities: non-tender, no pedal edema, + calf tenderness (right sided) Neurologic/Psychiatric: no motor/sensory deficits, alert, normal mood/affect Laboratory Results Last 24 Hours Test 12/21/17 20:14 12/21/17 23:46 12/22/17 01:22 12/22/17 05:14 Urine Color DK YELLOW Urine Appearance CLEAR Urine pH 5.0 Urine Specific [place] > 1.045 Urine Protein NEG Urine Glucose (UA) NEG Urine Ketones NEG Urine Occult Blood NEG Urine Nitrite NEG Urine Bilirubin NEG Urine Urobilinogen NEG Urine Leukocyte Esterase NEG Lactic Acid Level 1.9 mmol/L Vitamin B12 Level 1304 pg/mL Folate 18.24 ng/mL Procalcitonin 0.15 ng/ml Bedside Glucose 114 mg/dl White Blood Count 8.40 K/uL Red Blood Count 3.60 M/uL Hemoglobin 11.4 g/dL Hematocrit 35.4 % Mean Corpuscular Volume 98.3 fL Mean Corpuscular Hemoglobin 31.7 pg Mean Corpuscular Hemoglobin Concent 32.2 g/dl Platelet Count 162 K/uL Mean Platelet Volume 10.2 fL Neutrophils (%) (Auto) 73.4 % Lymphocytes (%) (Auto) 17.6 % Monocytes (%) (Auto) 6.7 % Eosinophils (%) (Auto) 0.1 % Basophils (%) (Auto) 0.1 % Neutrophils # (Auto) 6.16 K/uL Lymphocytes # (Auto) 1.48 K/uL Monocytes # (Auto) 0.56 K/uL Eosinophils # (Auto) 0.01 K/uL Basophils # (Auto) 0.01 K/uL RDW Standard Deviation 61.4 fL RDW Coefficient of Variation 17.0 % Immature Granulocyte % (Auto) 2.1 % Immature Granulocyte # (Auto) 0.18 K/uL Nucleated RBC Absolute Count (auto) 0.02 K/uL Nucleated Red Blood Cells % 0.3 % Sodium Level 143 mmol/L Potassium Level 3.6 mmol/L Chloride Level 108 mmol/L Carbon Dioxide Level 29 mmol/L Anion Gap 6.0 mmol/L Blood Urea Nitrogen 25 mg/dl Creatinine 1.06 mg/dl Est Creatinine Clear Calc Drug Dose 45.3 ml/min Estimated GFR () 57.4 Estimated GFR (Non- 49.6 BUN/Creatinine Ratio 23.5 Random Glucose 97 mg/dl Calcium Level 7.7 mg/dl Magnesium Level 1.8 mg/dl Total Bilirubin 0.7 mg/dl Aspartate Amino Transf (AST/SGOT) 16 U/L Alanine Aminotransferase (ALT/SGPT) 26 U/L Alkaline Phosphatase 46 U/L Total Protein 5.4 gm/dl Albumin 2.5 gm/dl Globulin 2.9 gm/dl Albumin/Globulin Ratio 0.9 Test 12/22/17 06:45 12/22/17 10:22 12/22/17 16:20 Bedside Glucose 110 mg/dl 124 mg/dl 110 mg/dl Assessment and Plan 82F presenting with cough and fatigue x 1 day. DDx include aspiration pneumonia and the flu. Aspiration Pneumonitis Witnessed aspiration episode. X-ray and CT suggest pneumonitis involving right perihilar region Pt has already received approx 7 days of Augmentin Coverage from PCP. Started on Zosyn initially but low pseudomonas risk- will continue augmentin- If clinically worsening- may broaden coverage Speech swallow eval without overt aspiration- slippery, dental soft diet Lactate Downtrended Follow up Blood Cultures. Pro-chase negative chronic respiratory failure -suprisingly stable in spite of acute illness, continue O2 Possible Flu. Acute onset of symptoms, recent contacts with a viral illness. Will treat empirically as flu despite negative flu swab - sensitivity of flu swab is low. IVF for hydration + PO. Starting Tamiflu - pharmacy OK to adjust dosing based on renal function. - recheck flu swab tomorrow and if negative- would stop navya-flu Prequent PVCs / Falls New finding on EKG, will consult cardiology whether an echo or intervention is warranted. Last echo in March 2017 showed, * 1. Severely technically limited. * 2. Grossly normal LV size and function. Cannot rule out regional walll motion abnormalities. * 3. RV not well visualized but appears grossly normal. * 4. No apparent significant valvular pathology. * 5. Compared with prior study on 11/30/2016: No significant changes. At present pt is unable to provide a good history, per daughter there have been near falls that she is wondering if related to the PVCs. Cardiology consulted.- pending Admit to Tele. Near Falls (per daughter) Will evaluate with PT and OT. History of Orthostatic Hypotension c/w home med Midodrine. DM2 on Insulin Diabetic Control Consult. History of DVTs Eliquis bid Chronic Pain - c/w home meds, Gabapentin 300mg BID, [place] PRN, voltaren gel and Ultram PRN. GERD - c/w PPI [place] - PT and OT on board. Depression - c/w Citalopram. Hypothyroid - c/w Synthroid HLD - c/w Zocor Asthma - Duonebs PRN, Spiriva daily. Insomnia - Ativan PRN for sleep Diet - DM2 & Heart Healthy, Slipery, dental soft Elevated MCV - checking B12 and Folic acid. DVT Proph: AC as above (eliquis) Admit to Tele Full Code Resident Physician Supervision Note: I interviewed and examined the patient. Discussed with Dr. Grey and agree with findings and plan as documented in the note. Any exceptions or clarifications are listed here: None Documented By: Hans dawkins no significant sob vitals noted fatigued but nad breahting unlabored no pallor or icterus, lungs clear moderate effort pneumonitis, chronic respiratory failure - HAP vs aspiration vs flu -continue empiric treatmet, supportive care, seems improving
[2017-12-22] MEDS ORDERED: PRED10TA PO ×2 (13:33→13:35)
[2017-12-22] MEDS ORDERED: SUCR5SUS PO (13:36)
--- NOTE | 2017-12-22 15:13 | Pharmacy Progress Note ---
Glycemic Control Intl Consult Date of Service Dec 22, 2017. Scope Glycemic Pharmacist consulted by Dr Norman on 12/22/17 for glycemic control and to write orders per [facility] inpatient glycemic control protocol Objective Weight (Kilograms): 94.400 Accuchecks BSG (last 24hrs): Test 12/22/17 01:22 12/22/17 05:14 12/22/17 06:45 12/22/17 10:22 Bedside Glucose 114 mg/dl (70-90) 110 mg/dl (70-90) 124 mg/dl (70-90) Random Glucose 97 mg/dl (70-99) Laboratory Data (last 24hrs) Test 12/22/17 05:14 Anion Gap 6.0 mmol/L BUN/Creatinine Ratio 23.5 Blood Urea Nitrogen 25 mg/dl Creatinine 1.06 mg/dl Potassium Level 3.6 mmol/L Sodium Level 143 mmol/L White Blood Count 8.40 K/uL Red Blood Count 3.60 M/uL Hemoglobin 11.4 g/dL Hematocrit 35.4 % Mean Corpuscular Volume 98.3 fL Mean Corpuscular Hemoglobin 31.7 pg Mean Corpuscular Hemoglobin Concent 32.2 g/dl Platelet Count 162 K/uL Mean Platelet Volume 10.2 fL Neutrophils (%) (Auto) 73.4 % Lymphocytes (%) (Auto) 17.6 % Monocytes (%) (Auto) 6.7 % Eosinophils (%) (Auto) 0.1 % Basophils (%) (Auto) 0.1 % Neutrophils # (Auto) 6.16 K/uL Lymphocytes # (Auto) 1.48 K/uL Monocytes # (Auto) 0.56 K/uL Eosinophils # (Auto) 0.01 K/uL Basophils # (Auto) 0.01 K/uL Recent Pertinent Medications Outpatient Anti-diabetic Regimen: * Lantus 22 units qAM plus Novolog sliding scale * A1c = 6.8 % 09/20/17 Risk Factors for Insulin Resistance: * Infection: zosyn (changed to Augmentin) and Tamiflu * Diet: type 2 diabetic diet Assessment & Plan ASSESSMENT: * Ms Philip is an 82 y/o F with a PMH of CHF, iatrogenic diaphragmatic hemiparesis, and well controlled type 2 diabetes who presents with aspiration pneumonia. The patient's blood sugar this morning was 110 mg/dL. She typically takes Lantus and prednisone at home. Since prednisone was not ordered this morning, a very reduced dose of Lantus was given (5 units). After paging physician, prednisone was added for tomorrow. * From previous hospitalizations, it has always been difficult to manage patient 's blood sugars as they climb throughout the day BUT fastings are always well controlled. The fasting blood sugars limit the amount of Lantus able to be given. Since the patient is on chronic prednisone, it is reasonable to try NPH for her. Will try 0.4 units/kg or 40 units tomorrow morning with prednisone. Will evaluate dose of Lantus tomorrow based upon how patient responds today. * For Novolog, will use parameters from previous hospitalizations. PLAN FOR INPATIENT GLYCEMIC CONTROL: * Basal insulin with LANTUS 5 units SQ x 1 this morning and evaluate tomorrow PLUS NPH 35 units qAM with prednisone * Correctional Insulin with NOVOLOG per scale ACHS or Q6hrs while NPO * Goal Range: Low 110 mg/dL - High 140 mg/dL * Correction Factor: 25 mg/dL/unit * Nutritional / Prandial insulin per carb ratio of 1 unit per 8 grams CHO consumed * Please note that the plan above was derived based on current level of insulin resistance and hospital stress. These recommendations are appropriate for inpatient admission only. Plan of care upon discharge will need to be reassessed to avoid potential outpatient hypo/hyperglycemia. Thank you.
[2017-12-22] MEDS: AMOXICILLIN/CLAVULANATE SUSP 400 MG/5 ML UDP PO SCH (17:09)
[2017-12-22] MEDS: SUCRALFATE 1 GM/10 ML UDC PO SCH ×2 (17:09→21:08)
--- NOTE | 2017-12-22 19:51 | CARDIOLOGY CONSULTATION ---
DATE OF CONSULTATION: 12/22/2017 TIME OF DICTATION: 1848. CONSULTING PHYSICIAN: Dr. Rojo. REASON FOR CONSULTATION: Possible symptomatic PVCs. HISTORY OF PRESENT ILLNESS: Ms. Philip is a pleasant 82-year-old female with a history significant for orthostatic hypotension with also a history of hypertension, edema, DVT, paroxysmal atrial tachycardia, dyslipidemia and gastroparesis. She also underwent right hemidiaphragm plication for diaphragmatic paralysis in the past. She was admitted to [facility] yesterday with a febrile illness. She is being treated for possible flu as well as possible aspiration pneumonitis. Her daughter Delores has provided the majority of today's history as the patient herself is quite somnolent, although she does respond to verbal stimuli and did answer yes or no questions. Delores states that for the past 1-2 weeks, her mother has been having increased episodes of fatigue, weakness and orthostatic-type symptoms. When she stands up, she will get quite lightheaded but denies actual syncope. She lives a rather sedentary life but does stand up and is somewhat mobile to use the restroom and uses a walker. They recently have had a family get together and many family members became ill approximately a week ago with symptoms such as myalgias, nausea and vomiting. Delores thought that perhaps her mother was able to escape this illness but then she developed nausea, vomiting and worsening symptoms as above with orthostatic issues and overall fatigue and myalgias. She had 1 episode of emesis. She also has had a nonproductive cough. There was concern that she has frequent PVCs from the admitting physician. There were also concerns apparently as an outpatient that she was having ectopy and she had an appointment scheduled as an outpatient today with me in the office setting. Her daughter, Delores, had questions about PVCs and what could be done for them if they are causing issues. Available recent office ECG was reviewed as well as ECGs done throughout this hospitalization and prior hospital ECGs and these were interpreted as noted below. She has not had any worsening edema. She has been more short of breath in general. She denies syncope, chest pain, palpitations or bleeding such as melena, hematochezia or hematuria. She has been placed on anticoagulation for DVTs in the past. REVIEW OF SYSTEMS: As above and review of systems otherwise negative/unremarkable. PAST MEDICAL HISTORY: 1. Orthostatic hypotension. 2. History of hypertension. 3. Sclerotic aortic valve. 4. Edema. 5. DVT. 6. Paroxysmal atrial tachycardia. 7. Dyslipidemia. 8. Abdominal pain. 9. COPD per records. 10. Type 2 diabetes. 11. Gastroparesis. 12. Fibromyalgia. 13. Presumed pulmonary embolism. 14. Restless leg syndrome. 15. Restrictive lung disease. 16. GERD. 17. Hypokalemia. 18. Status post right hemidiaphragm plication for diaphragmatic paralysis. 19. Lymphedema. HOME MEDICATIONS: Include midodrine 2.5 mg 3 times daily, prednisone, Eliquis 5 mg twice daily, potassium chloride 40 mEq twice daily, NovoLog, Basaglar, Carafate, Dexilant, gabapentin, simvastatin, spironolactone 25 mg twice daily, ropinirole, citalopram. Please see full outpatient list. INPATIENT MEDICATIONS: Include Augmentin 400 mg p.o. b.i.d., Eliquis 5 mg twice daily, citalopram 20 mg daily, gabapentin 300 mg p.o. b.i.d., Lantus, Synthroid 100 mcg daily, midodrine 2.5 mg 3 times daily, Tamiflu 75 mg p.o. b.i.d., Protonix 40 mg daily, potassium chloride 20 mEq daily, prednisone 40 mg daily, simvastatin 20 mg daily, sucralfate 1 gram p.o. q.i.d., Spiriva 1 puff daily. ALLERGIES: LISTED PNEUMOCOCCAL VACCINE, ERYTHROMYCIN, ADHESIVES, METRONIDAZOLE, PHENAZOPYRIDINE, POLYMYXIN B, FULL-DOSE ASPIRIN, TETRACYCLINE, MORPHINE, DILTIAZEM CAUSED EDEMA, METOCLOPRAMIDE AND BACITRACIN. THESE ARE LISTED ALLERGIES OR ADVERSE REACTIONS/INTOLERANCES. SOCIAL HISTORY: She lives at home with her daughter Delores who is currently present at the bedside. No tobacco, alcohol or drug abuse. She is a . She has 3 children. Grandchildren and great grandchildren. FAMILY HISTORY: Father had MD in his 50s or 60s. PHYSICAL EXAMINATION: VITAL SIGNS: Temperature 36.9 degrees, heart rate 93 beats per minute, respiration rate 18, blood pressure 134/79 mmHg, oxygen saturation 93% on 4 liters per nasal cannula. Weight 94.4 kg. GENERAL: No acute distress. She is somnolent but awakens to verbal stimuli. HEENT: Anicteric sclerae. NECK: No appreciable JVD but thick neck. No bruits. Normal carotid upstrokes bilaterally. CARDIAC: PMI was nonpalpable. There was no ventricular heave. Regular, without ectopy. Normal S1, S2. No murmurs, rubs or gallops. LUNGS: Bilateral crackles. ABDOMEN: Soft, nondistended. There is central abdominal pain, without palpable mass. EXTREMITIES: 2+ radial pulses bilaterally. 2+ posterior tibialis pulses bilaterally. Trace bilateral lower extremity edema in the dependent areas. No cyanosis. Several ECGs were reviewed. ECG #1 on 08/25/2017, sinus rhythm, 81 beats per minute, nonspecific T-wave abnormality. ECG on 09/19/2017 and 10/02/2017, sinus rhythm. No ectopy. ECG #4 on 12/13/2017, sinus rhythm. No PVCs. ECG 12/21/2017 at 12:02, sinus rhythm with premature supraventricular complexes. Heart rate 105 beats per minute. Nonspecific T-wave abnormality. ECG 12/22/2017, sinus rhythm at 91 beats per minute. Nonspecific ST-T wave abnormality. Premature supraventricular complexes no longer present. ECG 10/30/2017 as an outpatient, sinus rhythm at 72 beats per minute, nonspecific T-wave abnormality. Telemetry personally reviewed. No arrhythmia. No significant PVC burden noted. LABORATORY DATA: White blood cell count is 8.4, hemoglobin 11.4, platelets 162, sodium 143, potassium 3.6, BUN 25, creatinine 1.06, albumin 2.5. Most recent echo 04/14/2017 reported as technically difficult study with grossly normal LV size and systolic function. No significant valvular abnormalities reported. CT scan of the chest 12/21/2017 reported compromised study due to respiratory motion artifact. Small right pleural effusion. Subtle nodular airspace opacities within the right perihilar region consistent with pneumonitis. ASSESSMENT AND PLAN: 1. Concern for premature ventricular contractions: Several ECGs were reviewed and telemetry was reviewed. There was no evidence of significant PVC burden on telemetry and there were no PVCs noted on several ECGs dating back to August including outpatient ECG in October. Her symptoms of lightheadedness with change in position are consistent with her documented orthostatic hypotension. No further evaluation recommended at this time in regard to ectopy. 2. Premature supraventricular complexes: These are typically benign. This would not account for her symptoms of orthostatic hypotension. No further evaluation recommended at this time. No specific treatment recommended as she is asymptomatic from her ectopy. 3. Orthostatic hypotension: Her daughter Delores states that symptoms were well controlled up until recently and this also coincides with her current illness. Would recommend seeing how she feels after she recovers from her current illness. If with adequate hydration and oral intake she continues to have significant orthostatic symptoms, would recommend increasing midodrine to 5 mg 3 times daily. Would hold off for now, however, as she is acutely ill with a febrile illness and will be spending much of her time in the hospital bed as she is quite somnolent. 4. Shortness of breath: She does not appear to be hypervolemic on exam. She is being treated for pneumonitis and she is being treated for possible flu as per primary service. 5. Disposition: The patient's care has been discussed with Dr. Pinon of the primary hospitalist service. Cardiology will sign off at this time. Please call with any other questions or concerns. Thanks for allowing me to participate in the care of Ms. Philip.
[2017-12-22] MEDS: SIMVASTATIN 20 MG TAB PO SCH (21:09)
[2017-12-23] VITALS (8 sets, daily range): BP systolic 131–160; BP diastolic 70–81; PULSE 79–97; TEMP 37.1–37.3; O2SAT 95–98
[2017-12-23] MEDS: NITROGLYCERIN 2% OINTMENT 30GM TUBE EXT SCH ×4 (00:25→17:08)
[2017-12-23] MEDS: LEVOTHYROXINE 100 MCG TAB PO SCH (05:43)
[2017-12-23 05:48] LABS: BASO % 0.2 %; BASO ABS # 0.01 K/uL (0-0.2); EOS % 1.1 %; EOS ABS # 0.06 K/uL (0-0.5); HEMATOCRIT 34.6 % (37-47); HEMOGLOBIN 10.8 g/dL (12.0-16.0); IG# 0.16 K/uL (0.00-0.02); LYMPH % 19.3 %; MEAN CORPUSCULAR HEMOGLOBIN 31.2 pg (25-34); MEAN CORPUSCULAR HGB CONC 31.2 g/dl (32-36); MEAN PLATELET VOLUME 10.1 fL (7.4-10.4); MONO % 6.7 %; MONO ABS # 0.38 K/uL (0.11-0.59); NEUT % 69.9 %; NEUT ABS # 3.99 K/uL (1.4-6.5); PLATELET COUNT 143 K/uL (130-400); RED CELL DISTRIBUTION WIDTH CV 17.1 % (11.5-14.5); RED CELL DISTRIBUTION WIDTH SD 62.3 fL (36.4-46.3)
[2017-12-23 06:19] LABS: CREATININE 0.82 mg/dl (0.60-1.20); POTASSIUM 3.6 mmol/L (3.5-5.1)
[2017-12-23 06:20] LABS: ALBUMIN 2.4 gm/dl (3.4-5.0); CALCIUM 7.1 mg/dl (8.5-10.1)
[2017-12-23 06:22] LABS: TOTAL PROTEIN 5.3 gm/dl (6.4-8.2)
[2017-12-23] MEDS ORDERED: INSULIN HUMAN NPH SC SCH (07:30)
[2017-12-23] MEDS: INSULIN ASPART 100 UNITS/ML 3 ML PEN SC SCH ×4 (09:09→20:54)
[2017-12-23] MEDS: TIOTROPIUM BROMIDE 5 PUFF/90 MCG INH INH SCH (09:13)
[2017-12-23] MEDS: OSELTAMIVIR PHOSPHATE 75 MG CAP PO SCH (09:13)
[2017-12-23] MEDS: SUCRALFATE 1 GM/10 ML UDC PO SCH ×4 (09:13→20:50)
[2017-12-23] MEDS: CYANOCOBALAMIN 500 MCG TAB (VIT B-12) PO SCH (09:13)
[2017-12-23] MEDS: PANTOprazole SOD 40 MG TAB PO SCH (09:13)
[2017-12-23] MEDS: CITALOPRAM 20 MG TAB PO SCH (09:14)
[2017-12-23] MEDS: GABAPENTIN 300 MG CAP PO SCH ×2 (09:14→20:50)
[2017-12-23] MEDS: APIXABAN 2.5 MG TAB PO SCH ×2 (09:14→20:50)
[2017-12-23] MEDS: POTASSIUM CHLORIDE 20 MEQ TABCR PO SCH (09:15)
[2017-12-23] MEDS: NYSTATIN POWDER 15GM BTL EXT SCH ×3 (09:15→20:51)
--- NOTE | 2017-12-23 09:31 | Pharmacy Progress Note ---
Pharmacy Glycemic Short Note 2 Date of Service Dec 23, 2017. OUTPATIENT ANTIDIABETIC REGIMEN: * Lantus 22 units in the morning and Novolog sliding ASSESSMENT: * Ms Philip is an 82 y/o F with a PMH of CHF, iatrogenic diaphragmatic hemiparesis, and well controlled type 2 diabetes who presents with aspiration pneumonia. Yesterday the patient received 9 units of insulin (5 units of bolus) . Blood sugars were [phone] mg/dL. She received no prednisone. The patient's blood sugar this morning was 94 mg/dL. She typically takes Lantus and prednisone at home. * From previous hospitalizations, it has always been difficult to manage patient 's blood sugars as they climb throughout the day BUT fastings are always well controlled. The fasting blood sugars limit the amount of Lantus able to be given. Since the patient is on chronic prednisone, it is reasonable to use 0.3 units/kg or 35 units with prednisone. Will evaluate dose of Lantus tomorrow based upon how patient responds today. * For Novolog, will use parameters from previous hospitalizations. PLAN FOR INPATIENT GLYCEMIC CONTROL: * Basal insulin * NPH 35 units SQ with morning meal * Bolus insulin * NovoLog per scale ACHS or Q6hrs while NPO * Goal Range: Low 110 mg/dL - High 140 mg/dL * Correction Factor: 25 mg/dL/unit * Nutritional / Prandial insulin per carb ratio of 1 unit per 8 grams CHO consumed PLAN FOR DISCHARGE: * The patient is well controlled on her home regimen. As long as she does not have any hypoglycemia it is reasonable to continue.
[2017-12-23] MEDS: MIDODRINE 2.5 MG TAB PO SCH ×3 (09:38→17:07)
[2017-12-23] MEDS: AMOXICILLIN/CLAVULANATE SUSP 400 MG/5 ML UDP PO SCH ×2 (09:38→17:07)
[2017-12-23] MEDS: NSS + 20MEQ KCL 1000ML 1,000 ML IV SCH (09:38)
[2017-12-23] MEDS: TRAMADOL HCL 50 MG TAB PO SCH ×4 (09:38→20:54)
[2017-12-23 10:43] LABS: INFLUENZA A PCR Neg for Influ A (NEG); INFLUENZA B PCR Neg for Influ B (NEG)
--- NOTE | 2017-12-23 11:11 | Family Medicine Progress Note ---
Progress Note Date of Service Dec 23, 2017. Subjective Pt evaluation today including: conversation w/ patient, physical exam, chart review, lab review Pain: denies pain Voiding: no voiding problems Thinks her breathing is still bad but improved since admission. No CP, dizziness Constitutional: No fever, No chills Eyes: No worsening of vision ENT: No hearing loss Respiratory: + shortness of breath, No cough, No sputum Cardiovascular: No chest pain, No orthopnea Abdomen: No pain, No nausea Musculoskeletal: No joint pain Female : No dysuria, No urinary frequency Neurologic: No memory loss Psychiatric: No depression symptoms Heme: No abnormal bleeding/bruising Medications Current Inpatient Medications Medications (Trade) Dose Ordered Sig/Natasha Route Start Time Stop Time Status Last Admin Dose Admin Ioversol (Optiray 320) 125 ml UD PRN IV 12/21/17 14:15 12/25/17 14:14 Acetaminophen (Tylenol Tab) 650 mg Q4H PRN PO 12/21/17 22:15 01/20/18 22:14 Al Hydrox/Mg Hydrox/Simethicone (Maalox Max Susp) 15 ml Q4H PRN PO 12/21/17 22:15 01/20/18 22:14 Magnesium Hydroxide (Milk Of Magnesia Susp) 30 ml Q12H PRN PO 12/21/17 22:15 01/20/18 22:14 Ondansetron HCl (Zofran Inj) 4 mg Q6H PRN IV 12/21/17 22:15 01/20/18 22:14 Nitroglycerin (Nitrostat Tab) 0.4 mg UD PRN SL 12/21/17 22:15 01/20/18 22:14 Morphine Sulfate (MoRPHine SULFATE INJ) 2 mg Q30M PRN IV 12/21/17 22:15 01/04/18 22:14 Oseltamivir Phosphate (Tamiflu Cap) 75 mg BID PO 12/22/17 09:00 12/27/17 08:59 12/23/17 09:13 75 MG Potassium Chloride/Sodium Chloride 1,000 ml @ 60 mls/hr [id number] IV 12/21/17 23:59 01/20/18 23:58 12/23/17 09:38 60 MLS/HR Citalopram Hydrobromide (celeXA TAB) 20 mg DAILY PO 12/22/17 09:00 01/21/18 08:59 12/23/17 09:14 20 MG Cyanocobalamin (Vitamin B-12 Tab) 1,000 mcg QAM PO 12/22/17 09:00 01/21/18 08:59 12/23/17 09:13 1,000 MCG Diclofenac Sodium (Voltaren 1% Top Gel) 1 appln DAILY PRN EXT 12/21/17 23:15 01/20/18 23:14 Gabapentin (Neurontin Cap) 300 mg BID PO 12/22/17 09:00 01/21/18 08:59 12/23/17 09:14 300 MG Acetaminophen/ Hydrocodone Bitart ([place] 10/325 Tab) 1 tab Q4H PRN PO 12/21/17 23:15 01/04/18 23:14 12/22/17 06:24 1 TAB Albuterol/ Ipratropium (Duoneb) 3 ml Q4H PRN INH 12/21/17 23:15 01/20/18 23:14 Levothyroxine Sodium (Synthroid Tab) 100 mcg DAILYBB PO 12/22/17 06:00 01/21/18 05:59 12/23/17 05:43 100 MCG Lorazepam (Ativan Tab) 0.5 mg HS PRN PO 12/21/17 23:15 01/20/18 23:14 Midodrine (Proamatine Tab) 2.5 mg TID@0800,1200,1800 PO 12/22/17 08:00 01/21/18 07:59 12/22/17 17:48 2.5 MG Nystatin (Mycostatin Powder) 1 appln TID EXT 12/22/17 09:00 01/21/18 08:59 12/23/17 09:15 1 APPLN Potassium Chloride (Klor-Con Tab) 20 meq DAILY PO 12/22/17 09:00 01/21/18 08:59 12/23/17 09:15 20 MEQ Simvastatin (Zocor Tab) 20 mg HS PO 12/22/17 21:00 01/21/18 20:59 12/22/17 21:09 20 MG Tiotropium [place] (Spiriva Handihaler Inhaler) 1 puff DAILY INH 12/22/17 09:00 01/21/18 08:59 12/23/17 09:13 1 PUFF Tramadol HCl (Ultram Tab) 50 mg QID PO 12/22/17 09:00 01/21/18 08:59 12/23/17 09:38 50 MG Pantoprazole Sodium (Protonix Tab) 40 mg QAM PO 12/22/17 09:00 01/21/18 08:59 12/23/17 09:13 40 MG Miscellaneous Information (Consult Glycemic Management Pharmacy) 1 ea DAILY PRN N/A 12/22/17 00:21 01/21/18 00:20 Nitroglycerin (Nitroglycerin 2% Oint) 1 inch Q6H EXT 12/22/17 06:00 01/21/18 05:59 12/23/17 05:41 1 INCH Insulin Aspart (novoLOG ASPART) SLIDING SCALE ACHS SC 12/22/17 07:00 01/21/18 06:59 12/22/17 17:47 5 UNITS Glucose (Glucose 40% Gel) 15-30 GRAMS 15 GRAMS... UD PRN PO 12/22/17 00:45 01/21/18 00:44 Glucose (Glucose Chew Tab) 4-8 Tablets 4 Tabl... UD PRN PO 12/22/17 00:45 01/21/18 00:44 Dextrose (Dextrose 50% 50ML Syringe) 25-50ML OF 50% DW IV FOR... UD PRN IV 12/22/17 00:45 01/21/18 00:44 Glucagon (Glucagon Inj) 1 mg UD PRN SQ 12/22/17 00:45 01/21/18 00:44 Apixaban (Eliquis Tab) 5 mg BID PO 12/22/17 09:00 01/21/18 08:59 12/23/17 09:14 5 MG Prednisone (PredniSONE TAB) 40 mg DAILY PO 12/23/17 09:00 01/22/18 08:59 12/23/17 09:14 40 MG Sucralfate (Carafate Susp) 1 gm QID PO 12/22/17 17:00 01/21/18 16:59 12/23/17 09:13 1 GM Insulin Human NPH (novoLIN-N NPH) 35 units QDB SC 12/23/17 07:30 01/22/18 07:29 4/7/18 09:16 35 UNITS Amoxicillin/ Clavulanate Potassium (Augmentin Susp) 400 mg BIDM PO 12/22/17 16:45 12/29/17 16:44 12/23/17 09:38 400 MG Objective Vital Signs Date Time Temp Pulse Resp B/P (MAP) Pulse Ox O2 Delivery O2 Flow Rate FiO2 12/23/17 08:00 Nasal Cannula 3.0 12/23/17 07:54 37.2 89 20 160/78 (105) 96 2.0 12/23/17 04:00 37.2 85 18 134/77 (96) 96 Nasal Cannula 3.0 12/23/17 04:00 Nasal Cannula 3.0 12/23/17 00:21 37.1 86 18 150/73 (98) 95 Nasal Cannula 4.0 12/22/17 23:59 Nasal Cannula 4.0 12/22/17 20:00 98 Nasal Cannula 4.0 12/22/17 19:40 36.6 82 18 126/76 (93) 98 12/22/17 16:00 93 Nasal Cannula 4.0 12/22/17 15:45 36.9 93 18 134/79 (97) 93 12/22/17 12:00 Nasal Cannula 4.0 12/22/17 12:00 Nasal Cannula 4.0 Physical Exam General Appearance: WD/WN, no apparent distress Eyes: normal inspection ENT: hearing grossly normal Neck: supple Respiratory/Chest: normal breath sounds, + rhonchi Cardiovascular: regular rate, rhythm Abdomen: normal bowel sounds, non tender, soft Extremities: no pedal edema, + calf tenderness (right sided) Neurologic/Psychiatric: alert, normal mood/affect, oriented x 3 Laboratory Results 12/23/17 05:33 Red Blood Count 3.46, Mean Corpuscular Volume 100.0, Mean Corpuscular Hemoglobin 31.2, Mean Corpuscular Hemoglobin Concent 31.2, Mean Platelet Volume 10.1, Neutrophils (%) (Auto) 69.9, Lymphocytes (%) (Auto) 19.3, Monocytes (%) ( Auto) 6.7, Eosinophils (%) (Auto) 1.1, Basophils (%) (Auto) 0.2, Neutrophils # ( Auto) 3.99, Lymphocytes # (Auto) 1.10, Monocytes # (Auto) 0.38, Eosinophils # ( Auto) 0.06, Basophils # (Auto) 0.01 12/23/17 05:33 Test 12/23/17 05:33 12/23/17 06:48 12/23/17 09:20 White Blood Count 5.70 K/uL (4.8-10.8) Red Blood Count 3.46 M/uL (4.2-5.4) Hemoglobin 10.8 g/dL (12.0-16.0) Hematocrit 34.6 % (37-47) Mean Corpuscular Volume 100.0 fL (80-100) Mean Corpuscular Hemoglobin 31.2 pg (25-34) Mean Corpuscular Hemoglobin Concent 31.2 g/dl (32-36) Platelet Count 143 K/uL (130-400) Mean Platelet Volume 10.1 fL (7.4-10.4) Neutrophils (%) (Auto) 69.9 % Lymphocytes (%) (Auto) 19.3 % Monocytes (%) (Auto) 6.7 % Eosinophils (%) (Auto) 1.1 % Basophils (%) (Auto) 0.2 % Neutrophils # (Auto) 3.99 K/uL (1.4-6.5) Lymphocytes # (Auto) 1.10 K/uL (1.2-3.4) Monocytes # (Auto) 0.38 K/uL (0.11-0.59) Eosinophils # (Auto) 0.06 K/uL (0-0.5) Basophils # (Auto) 0.01 K/uL (0-0.2) RDW Standard Deviation 62.3 fL (36.4-46.3) RDW Coefficient of Variation 17.1 % (11.5-14.5) Immature Granulocyte % (Auto) 2.8 % Immature Granulocyte # (Auto) 0.16 K/uL (0.00-0.02) Anion Gap 3.0 mmol/L (3-11) Est Creatinine Clear Calc Drug Dose 58.6 ml/min Estimated GFR () 78.3 Estimated GFR (Non- 67.6 BUN/Creatinine Ratio 25.4 (10-20) Calcium Level 7.1 mg/dl (8.5-10.1) Total Bilirubin 0.7 mg/dl (0.2-1) Aspartate Amino Transf (AST/SGOT) 15 U/L (15-37) Alanine Aminotransferase (ALT/SGPT) 27 U/L (12-78) Alkaline Phosphatase 42 U/L (45-117) Total Protein 5.3 gm/dl (6.4-8.2) Albumin 2.4 gm/dl (3.4-5.0) Globulin 2.9 gm/dl (2.5-4.0) Albumin/Globulin Ratio 0.8 (0.9-2) Bedside Glucose 106 mg/dl (70-90) Influenza Type A (RT-PCR) Neg for Influ A (NEG) Influenza Type B (RT-PCR) Neg for Influ B (NEG) Assessment and Plan 82F presenting with cough and fatigue x 1 day. Aspiration Pneumonitis - Witnessed aspiration episode. 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 Severely technically limited. * 2. Grossly normal LV size and function. Cannot rule out regional walll motion abnormalities. * 3. RV not well visualized but appears grossly normal. * 4. No apparent significant valvular pathology. * 5. Compared with prior study on 11/30/2016: No significant changes. - less likely sec to PVCs - Likely sec to orthostasis History of Orthostatic Hypotension Midodrine currently held due to higher BP DM2 on Insulin Diabetic Control Consult. History of DVTs Eliquis bid Chronic Pain - c/w home meds, Gabapentin 300mg BID, [place] PRN, voltaren gel and Ultram PRN. GERD - Continue PPI [place] - PT and OT on board. Depression - c/w Citalopram. Hypothyroid - c/w Synthroid HLD - c/w Zocor Asthma - Duonebs PRN, Spiriva daily. Insomnia - Ativan PRN for sleep Diet - DM2 & Heart Healthy, Slippery, dental soft DVT Proph: Eliquis Admit to Tele Full Code Resident Physician Supervision Note: I interviewed and examined the patient. Discussed with Dr. López and agree with findings and plan as documented in the note. Any exceptions or clarifications are listed here: None Documented By: Hans Pinon feleing better about the same revisited and answered extensive questions from dtr to the best of my ability vitals noted fatigued but nad breahting unlabored no pallor or icterus, lungs clear moderate effort pneumonitis, chronic respiratory failure - HAP vs aspiration vs flu, givne dtr seeing choking event aspiration most likely - surprisingly little distress given chronic respiratory failure - augmentin, time. flu negative can stop tamiflu -continue antibiotics, supportive care, seems improving otherwise as above Resident Tracking Resident Involvement: Resident Care Provided Care Provided: Adult Hospital Medicine
[2017-12-23] MEDS: ALBUT/IPRATROP 3MG/0.5MG NEB 3 ML VIAL INH SCH ×2 (15:59→19:05)
[2017-12-23] MEDS: SIMVASTATIN 20 MG TAB PO SCH (20:51)
[2017-12-24] VITALS (15 sets, daily range): BP systolic 144–173; BP diastolic 72–85; PULSE 75–105; TEMP 36.4–37.5; O2SAT 95–99
[2017-12-24] MEDS: NSS + 20MEQ KCL 1000ML 1,000 ML IV SCH (00:12)
[2017-12-24] MEDS: NITROGLYCERIN 2% OINTMENT 30GM TUBE EXT SCH ×5 (00:12→23:45)
[2017-12-24] MEDS: LEVOTHYROXINE 100 MCG TAB PO SCH (06:09)
[2017-12-24] MEDS: INSULIN ASPART 100 UNITS/ML 3 ML PEN SC SCH ×4 (07:00→20:42)
[2017-12-24] MEDS: ALBUT/IPRATROP 3MG/0.5MG NEB 3 ML VIAL INH SCH ×4 (07:26→19:30)
[2017-12-24 07:43] LABS: BASO % 0.2 %; BASO ABS # 0.01 K/uL (0-0.2); EOS % 0.5 %; EOS ABS # 0.03 K/uL (0-0.5); HEMOGLOBIN 9.9 g/dL (12.0-16.0); IG# 0.15 K/uL (0.00-0.02); LYMPH % 17.8 %; LYMPH ABS # 1.05 K/uL (1.2-3.4); MEAN CELL VOLUME 98.5 fL (80-100); MEAN CORPUSCULAR HEMOGLOBIN 30.5 pg (25-34); MEAN CORPUSCULAR HGB CONC 30.9 g/dl (32-36); MEAN PLATELET VOLUME 10.4 fL (7.4-10.4); MONO % 8.5 %; NEUT % 70.5 %; NEUT ABS # 4.15 K/uL (1.4-6.5); NUCLEATED RED BLOOD CELL ABS 0.02 K/uL (0-0); PLATELET COUNT 160 K/uL (130-400); RED CELL DISTRIBUTION WIDTH CV 16.7 % (11.5-14.5); RED CELL DISTRIBUTION WIDTH SD 60.2 fL (36.4-46.3); WHITE BLOOD COUNT 5.89 K/uL (4.8-10.8)
[2017-12-24 08:11] LABS: ALBUMIN 2.4 gm/dl (3.4-5.0); CALCIUM 6.9 mg/dl (8.5-10.1); CREATININE 0.74 mg/dl (0.60-1.20); POTASSIUM 3.5 mmol/L (3.5-5.1)
[2017-12-24 08:14] LABS: TOTAL PROTEIN 5.3 gm/dl (6.4-8.2)
[2017-12-24] MEDS: MIDODRINE 2.5 MG TAB PO SCH ×3 (09:17→18:41)
[2017-12-24] MEDS: TIOTROPIUM BROMIDE 5 PUFF/90 MCG INH INH SCH (09:17)
[2017-12-24] MEDS: CYANOCOBALAMIN 500 MCG TAB (VIT B-12) PO SCH (09:18)
[2017-12-24] MEDS: PANTOprazole SOD 40 MG TAB PO SCH (09:18)
[2017-12-24] MEDS: APIXABAN 2.5 MG TAB PO SCH ×2 (09:19→20:37)
[2017-12-24] MEDS: POTASSIUM CHLORIDE 20 MEQ TABCR PO SCH (09:20)
[2017-12-24] MEDS: INSULIN GLARGINE SOLOSTAR 100 UNITS/ML 3 ML PEN SC SCH (09:22)
[2017-12-24] MEDS: NYSTATIN POWDER 15GM BTL EXT SCH ×3 (09:23→20:36)
[2017-12-24] MEDS: SUCRALFATE 1 GM/10 ML UDC PO SCH ×4 (09:23→20:37)
[2017-12-24] MEDS: CITALOPRAM 20 MG TAB PO SCH (09:23)
[2017-12-24] MEDS: TRAMADOL HCL 50 MG TAB PO SCH ×4 (09:28→20:42)
[2017-12-24] MEDS: AMOXICILLIN/CLAVULANATE SUSP 400 MG/5 ML UDP PO SCH ×2 (09:28→17:06)
--- NOTE | 2017-12-24 09:52 | Pharmacy Progress Note ---
Pharmacy Glycemic Short Note 2 Date of Service Dec 24, 2017. OUTPATIENT ANTIDIABETIC REGIMEN: * Lantus 22 units in the morning and Novolog sliding ASSESSMENT: * Ms Philip is an 82 y/o F with a PMH of CHF, iatrogenic diaphragmatic hemiparesis, and well controlled type 2 diabetes who presents with aspiration pneumonia. Yesterday the patient received 44 units of insulin (35 units of NPH) . Blood sugars were [phone] mg/dL. She received 40 mg of prednisone. The patient's blood sugar this morning was 119 mg/dL. She typically takes Lantus and prednisone at home. * From previous hospitalizations, it has always been difficult to manage patient 's blood sugars as they climb throughout the day BUT fastings are always well controlled. The fasting blood sugars limit the amount of Lantus able to be given. Since the patient is on chronic prednisone, it is reasonable to use 0.3 units/kg or 35 units of NPH with prednisone. Fasting was trending upwards today at 119 mg/dL so will schedule Lantus 5 units daily. NPH is moved to lunch since patient trended above 200 mg/dL yesterday. Sometimes the effects of NPH are dissipated by evening. * For Novolog, will use parameters from previous hospitalizations. PLAN FOR INPATIENT GLYCEMIC CONTROL: * Basal insulin * NPH 35 units SQ with lunch * Lantus 5 units QAM * Bolus insulin * NovoLog per scale ACHS or Q6hrs while NPO * Goal Range: Low 110 mg/dL - High 140 mg/dL * Correction Factor: 25 mg/dL/unit * Nutritional / Prandial insulin per carb ratio of 1 unit per 8 grams CHO consumed PLAN FOR DISCHARGE: * The patient is well controlled on her home regimen. As long as she does not have any hypoglycemia it is reasonable to continue.
--- NOTE | 2017-12-24 10:34 | Family Medicine Progress Note ---
Progress Note Date of Service Dec 24, 2017. Subjective Pt evaluation today including: conversation w/ patient, physical exam, chart review, lab review Pain: denies pain PO Intake: good Constitutional: No fever, No chills Eyes: No worsening of vision ENT: No hearing loss Respiratory: + shortness of breath, No cough, No sputum Cardiovascular: No chest pain Abdomen: No pain, No nausea, No vomiting Musculoskeletal: No joint pain Female : + incontinence, No dysuria Neurologic: No memory loss Psychiatric: No depression symptoms Medications Current Inpatient Medications Medications (Trade) Dose Ordered Sig/Natasha Route Start Time Stop Time Status Last Admin Dose Admin Ioversol (Optiray 320) 125 ml UD PRN IV 12/21/17 14:15 12/25/17 14:14 Acetaminophen (Tylenol Tab) 650 mg Q4H PRN PO 12/21/17 22:15 01/20/18 22:14 Al Hydrox/Mg Hydrox/Simethicone (Maalox Max Susp) 15 ml Q4H PRN PO 12/21/17 22:15 01/20/18 22:14 Magnesium Hydroxide (Milk Of Magnesia Susp) 30 ml Q12H PRN PO 12/21/17 22:15 01/20/18 22:14 Ondansetron HCl (Zofran Inj) 4 mg Q6H PRN IV 12/21/17 22:15 01/20/18 22:14 Nitroglycerin (Nitrostat Tab) 0.4 mg UD PRN SL 12/21/17 22:15 01/20/18 22:14 Morphine Sulfate (MoRPHine SULFATE INJ) 2 mg Q30M PRN IV 12/21/17 22:15 01/04/18 22:14 Potassium Chloride/Sodium Chloride 1,000 ml @ 60 mls/hr [id number] IV 12/21/17 23:59 01/20/18 23:58 12/24/17 00:12 60 MLS/HR Citalopram Hydrobromide (celeXA TAB) 20 mg DAILY PO 12/22/17 09:00 01/21/18 08:59 12/24/17 09:23 20 MG Cyanocobalamin (Vitamin B-12 Tab) 1,000 mcg QAM PO 12/22/17 09:00 01/21/18 08:59 12/24/17 09:18 1,000 MCG Diclofenac Sodium (Voltaren 1% Top Gel) 1 appln DAILY PRN EXT 12/21/17 23:15 01/20/18 23:14 Gabapentin (Neurontin Cap) 300 mg BID PO 12/22/17 09:00 01/21/18 08:59 12/23/17 20:50 300 MG Acetaminophen/ Hydrocodone Bitart ([place] 10/325 Tab) 1 tab Q4H PRN PO 12/21/17 23:15 01/04/18 23:14 12/22/17 06:24 1 TAB Albuterol/ Ipratropium (Duoneb) 3 ml Q4H PRN INH 12/21/17 23:15 01/20/18 23:14 Levothyroxine Sodium (Synthroid Tab) 100 mcg DAILYBB PO 12/22/17 06:00 01/21/18 05:59 12/24/17 06:09 100 MCG Lorazepam (Ativan Tab) 0.5 mg HS PRN PO 12/21/17 23:15 01/20/18 23:14 Midodrine (Proamatine Tab) 2.5 mg TID@0800,1200,1800 PO 12/22/17 08:00 01/21/18 07:59 12/24/17 09:17 2.5 MG Nystatin (Mycostatin Powder) 1 appln TID EXT 12/22/17 09:00 01/21/18 08:59 12/24/17 09:23 1 APPLN Potassium Chloride (Klor-Con Tab) 20 meq DAILY PO 12/22/17 09:00 01/21/18 08:59 12/24/17 09:20 20 MEQ Simvastatin (Zocor Tab) 20 mg HS PO 12/22/17 21:00 01/21/18 20:59 12/23/17 20:51 20 MG Tiotropium [place] (Spiriva Handihaler Inhaler) 1 puff DAILY INH 12/22/17 09:00 01/21/18 08:59 12/24/17 09:17 1 PUFF Tramadol HCl (Ultram Tab) 50 mg QID PO 12/22/17 09:00 01/21/18 08:59 12/24/17 09:28 50 MG Pantoprazole Sodium (Protonix Tab) 40 mg QAM PO 12/22/17 09:00 01/21/18 08:59 12/24/17 09:18 40 MG Miscellaneous Information (Consult Glycemic Management Pharmacy) 1 ea DAILY PRN N/A 12/22/17 00:21 01/21/18 00:20 Nitroglycerin (Nitroglycerin 2% Oint) 1 inch Q6H EXT 12/22/17 06:00 01/21/18 05:59 12/24/17 06:10 1 INCH Insulin Aspart (novoLOG ASPART) SLIDING SCALE ACHS SC 12/22/17 07:00 01/21/18 06:59 12/23/17 20:54 4 UNITS Glucose (Glucose 40% Gel) 15-30 GRAMS 15 GRAMS... UD PRN PO 12/22/17 00:45 01/21/18 00:44 Glucose (Glucose Chew Tab) 4-8 Tablets 4 Tabl... UD PRN PO 12/22/17 00:45 01/21/18 00:44 Dextrose (Dextrose 50% 50ML Syringe) 25-50ML OF 50% DW IV FOR... UD PRN IV 12/22/17 00:45 01/21/18 00:44 Glucagon (Glucagon Inj) 1 mg UD PRN SQ 12/22/17 00:45 01/21/18 00:44 Apixaban (Eliquis Tab) 5 mg BID PO 12/22/17 09:00 01/21/18 08:59 12/24/17 09:19 5 MG Prednisone (PredniSONE TAB) 40 mg DAILY PO 12/23/17 09:00 01/22/18 08:59 12/24/17 09:19 40 MG Sucralfate (Carafate Susp) 1 gm QID PO 12/22/17 17:00 01/21/18 16:59 12/24/17 09:23 1 GM Amoxicillin/ Clavulanate Potassium (Augmentin Susp) 400 mg BIDM PO 12/22/17 16:45 12/29/17 16:44 12/24/17 09:28 400 MG Albuterol/ Ipratropium (Duoneb) 3 ml QIDR INH 12/23/17 16:00 01/22/18 15:59 12/24/17 07:26 3 ML Insulin Human NPH (novoLIN-N NPH) 35 units QDL SC 12/24/17 11:30 5/8/18 11:29 Insulin Glargine (Lantus Solostar Pen) 5 units QAM SC 12/24/17 09:00 01/23/18 08:59 12/24/17 09:22 5 UNITS Objective Vital Signs Date Time Temp Pulse Resp B/P (MAP) Pulse Ox O2 Delivery O2 Flow Rate FiO2 12/24/17 07:30 36.9 86 18 145/72 (96) 98 Nasal Cannula 3.0 12/24/17 07:26 81 18 97 Nasal Cannula 3.0 12/24/17 04:02 Nasal Cannula 3.0 12/24/17 03:48 36.7 85 18 144/72 (96) 97 Nasal Cannula 3.0 12/24/17 00:00 Nasal Cannula 3.0 12/23/17 23:49 37.3 91 20 146/76 (99) 98 Nasal Cannula 3.0 12/23/17 20:00 Nasal Cannula 3.0 12/23/17 19:45 37.3 97 20 131/70 (90) 96 Nasal Cannula 3.0 12/23/17 19:06 79 18 98 Nasal Cannula 3.0 12/23/17 16:01 84 18 97 Nasal Cannula 3.0 12/23/17 16:00 Nasal Cannula 3.0 12/23/17 12:00 Nasal Cannula 3.0 12/23/17 11:15 37.2 92 20 159/81 (107) 97 2.0 Physical Exam General Appearance: WD/WN, no apparent distress ENT: hearing grossly normal Neck: supple Respiratory/Chest: lungs clear, no respiratory distress, + crackles (fine crackles bibasilar) Cardiovascular: regular rate, rhythm Abdomen: normal bowel sounds, non tender, soft Extremities: no pedal edema Neurologic/Psychiatric: alert, normal mood/affect, oriented x 3 Laboratory Results 12/24/17 07:05 Red Blood Count 3.25, Mean Corpuscular Volume 98.5, Mean Corpuscular Hemoglobin 30.5, Mean Corpuscular Hemoglobin Concent 30.9, Mean Platelet Volume 10.4, Neutrophils (%) (Auto) 70.5, Lymphocytes (%) (Auto) 17.8, Monocytes (%) (Auto) 8.5, Eosinophils (%) (Auto) 0.5, Basophils (%) (Auto) 0.2, Neutrophils # (Auto) 4.15, Lymphocytes # (Auto) 1.05, Monocytes # (Auto) 0.50, Eosinophils # (Auto) 0.03, Basophils # (Auto) 0.01 12/24/17 07:05 Test 12/24/17 07:05 12/24/17 07:13 12/24/17 08:42 White Blood Count 5.89 K/uL (4.8-10.8) Red Blood Count 3.25 M/uL (4.2-5.4) Hemoglobin 9.9 g/dL (12.0-16.0) Hematocrit 32.0 % (37-47) Mean Corpuscular Volume 98.5 fL (80-100) Mean Corpuscular Hemoglobin 30.5 pg (25-34) Mean Corpuscular Hemoglobin Concent 30.9 g/dl (32-36) Platelet Count 160 K/uL (130-400) Mean Platelet Volume 10.4 fL (7.4-10.4) Neutrophils (%) (Auto) 70.5 % Lymphocytes (%) (Auto) 17.8 % Monocytes (%) (Auto) 8.5 % Eosinophils (%) (Auto) 0.5 % Basophils (%) (Auto) 0.2 % Neutrophils # (Auto) 4.15 K/uL (1.4-6.5) Lymphocytes # (Auto) 1.05 K/uL (1.2-3.4) Monocytes # (Auto) 0.50 K/uL (0.11-0.59) Eosinophils # (Auto) 0.03 K/uL (0-0.5) Basophils # (Auto) 0.01 K/uL (0-0.2) RDW Standard Deviation 60.2 fL (36.4-46.3) RDW Coefficient of Variation 16.7 % (11.5-14.5) Immature Granulocyte % (Auto) 2.5 % Immature Granulocyte # (Auto) 0.15 K/uL (0.00-0.02) Nucleated RBC Absolute Count (auto) 0.02 K/uL (0-0) Nucleated Red Blood Cells % 0.3 % Anion Gap 9.0 mmol/L (3-11) Est Creatinine Clear Calc Drug Dose 66.4 ml/min Estimated GFR () 88.7 Estimated GFR (Non- 76.5 BUN/Creatinine Ratio 18.8 (10-20) Calcium Level 6.9 mg/dl (8.5-10.1) Total Bilirubin 0.5 mg/dl (0.2-1) Aspartate Amino Transf (AST/SGOT) 15 U/L (15-37) Alanine Aminotransferase (ALT/SGPT) 26 U/L (12-78) Alkaline Phosphatase 41 U/L (45-117) Total Protein 5.3 gm/dl (6.4-8.2) Albumin 2.4 gm/dl (3.4-5.0) Globulin 2.9 gm/dl (2.5-4.0) Albumin/Globulin Ratio 0.8 (0.9-2) Bedside Glucose 119 mg/dl (70-90) 25-Hydroxy Vitamin D Total 34.9 ng/ml (30-100) Assessment and Plan 82F presenting with cough and fatigue x 1 day CONTACT LENS FITTER Aspiration Pneumonitis - Witnessed aspiration episode. 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 Severely technically limited. * 2. Grossly normal LV size and function. Cannot rule out regional walll motion abnormalities. * 3. RV not well visualized but appears grossly normal. * 4. No apparent significant valvular pathology. * 5. Compared with prior study on 11/30/2016: No significant changes. - less likely sec to PVCs - Likely sec to orthostasis History of Orthostatic Hypotension Midodrine currently held due to higher BP DM2 on Insulin Diabetic Control Consult. History of DVTs Eliquis bid Chronic Pain - c/w home meds, Gabapentin 300mg BID, [place] PRN, voltaren gel and Ultram PRN. GERD - Continue PPI [place] - PT and OT on board. Depression - c/w Citalopram. Hypothyroid - c/w Synthroid HLD - c/w Zocor Asthma - Duonebs PRN, Spiriva daily. - Prednisone 40 mg daily Insomnia - Ativan PRN for sleep Diet - DM2 & Heart Healthy, Slippery, dental soft DVT Proph: Ryley Full Code Resident Physician Supervision Note: I interviewed and examined the patient. Discussed with Dr. López and agree with findings and plan as documented in the note. Any exceptions or clarifications are listed here: None Documented By: Hans Pinon breathing maybe a little worse today, but about the same as earlier iggy noted nad fatigued appearing breathing unlabored sob - appears to have had mild pulmonary edema - fluids stopped, lungs improved. follow. secondarily, was having O2 weaned, but normally is on more- turned back to higher to better match home settings aspiration pneumonia - augmentin, supportive care weakness/deconditioning - PT/OT dtr requests pulmonary consult to manage prednisone otherwise as above Resident Tracking Resident Involvement: Resident Care Provided Care Provided: Adult Hospital Medicine
[2017-12-24] MEDS: GABAPENTIN 300 MG CAP PO SCH ×2 (11:17→20:37)
[2017-12-24] MEDS: INSULIN HUMAN NPH SC SCH (11:20)
[2017-12-24] MEDS ORDERED: NURSING VERBAL MED ORDER ONE ×2 (14:00→16:30)
[2017-12-24] MEDS: BOOST PLUS VANILLA PO SCH (17:32)
[2017-12-24] MEDS: SIMVASTATIN 20 MG TAB PO SCH (20:38)
[2017-12-24] MEDS: LACTOBACILLUS ACIDOPHILUS (FLORANEX) TAB PO SCH (23:28)
[2017-12-25] VITALS (14 sets, daily range): BP systolic 135–173; BP diastolic 67–92; PULSE 70–119; TEMP 36.5–37.3; O2SAT 93–100; Ht 157.5 cm; Wt 99.5 kg
[2017-12-25 04:24] LABS: BASO % 0.3 %; BASO ABS # 0.02 K/uL (0-0.2); EOS % 0.1 %; EOS ABS # 0.01 K/uL (0-0.5); HEMOGLOBIN 10.3 g/dL (12.0-16.0); IG# 0.33 K/uL (0.00-0.02); LYMPH ABS # 0.76 K/uL (1.2-3.4); MEAN CELL VOLUME 97.9 fL (80-100); MEAN CORPUSCULAR HEMOGLOBIN 31.5 pg (25-34); MEAN CORPUSCULAR HGB CONC 32.2 g/dl (32-36); MONO % 10.7 %; MONO ABS # 0.81 K/uL (0.11-0.59); NEUT % 74.6 %; NEUT ABS # 5.67 K/uL (1.4-6.5); PLATELET COUNT 176 K/uL (130-400); RED CELL DISTRIBUTION WIDTH CV 16.8 % (11.5-14.5); RED CELL DISTRIBUTION WIDTH SD 60.7 fL (36.4-46.3)
[2017-12-25 04:53] LABS: ALBUMIN 2.7 gm/dl (3.4-5.0); CALCIUM 7.1 mg/dl (8.5-10.1); CREATININE 0.99 mg/dl (0.60-1.20); POTASSIUM 4.2 mmol/L (3.5-5.1); TOTAL PROTEIN 5.8 gm/dl (6.4-8.2)
[2017-12-25] MEDS: LEVOTHYROXINE 100 MCG TAB PO SCH (05:47)
[2017-12-25] MEDS: NITROGLYCERIN 2% OINTMENT 30GM TUBE EXT SCH ×3 (05:48→17:31)
[2017-12-25] MEDS: INSULIN ASPART 100 UNITS/ML 3 ML PEN SC SCH ×4 (07:00→20:29)
[2017-12-25] MEDS: ALBUT/IPRATROP 3MG/0.5MG NEB 3 ML VIAL INH SCH ×4 (07:04→19:46)
[2017-12-25] MEDS: CITALOPRAM 20 MG TAB PO SCH (08:28)
[2017-12-25] MEDS: LACTOBACILLUS ACIDOPHILUS (FLORANEX) TAB PO SCH ×3 (08:28→17:23)
[2017-12-25] MEDS: PANTOprazole SOD 40 MG TAB PO SCH (08:28)
[2017-12-25] MEDS: CYANOCOBALAMIN 500 MCG TAB (VIT B-12) PO SCH (08:28)
[2017-12-25] MEDS: NYSTATIN POWDER 15GM BTL EXT SCH ×3 (08:29→19:45)
[2017-12-25] MEDS: APIXABAN 2.5 MG TAB PO SCH ×2 (08:29→19:45)
[2017-12-25] MEDS: MIDODRINE 2.5 MG TAB PO SCH ×3 (08:29→17:25)
[2017-12-25] MEDS: TIOTROPIUM BROMIDE 5 PUFF/90 MCG INH INH SCH (08:29)
[2017-12-25] MEDS: SUCRALFATE 1 GM/10 ML UDC PO SCH ×4 (08:30→19:46)
[2017-12-25] MEDS: POTASSIUM CHLORIDE 20 MEQ TABCR PO SCH (08:30)
[2017-12-25] MEDS: GABAPENTIN 300 MG CAP PO SCH ×2 (08:30→19:45)
[2017-12-25] MEDS: INSULIN GLARGINE SOLOSTAR 100 UNITS/ML 3 ML PEN SC SCH (08:32)
[2017-12-25] MEDS: BOOST PLUS VANILLA PO SCH (08:51)
[2017-12-25] MEDS: AMOXICILLIN/CLAVULANATE SUSP 400 MG/5 ML UDP PO SCH ×2 (08:52→17:22)
[2017-12-25] MEDS: TRAMADOL HCL 50 MG TAB PO SCH ×4 (08:52→19:44)
--- NOTE | 2017-12-25 08:58 | CARDIOLOGY PROGRESS NOTE ---
DATE: 12/25/2017 TIME: 8:28 a.m. SUBJECTIVE: She states that her breathing has not improved. She still feels short of breath. She denies chest pain, syncope or vomiting. She still has abdominal pain. She felt lightheaded when standing up today while checking orthostatic vital signs with nursing staff. She states that she is quite upset this morning. She states that she has been interrupted and had been put through different maneuvers to check blood pressures. OBJECTIVE: VITAL SIGNS: Her blood pressure was 157/84 and increased to 168/92 sitting and increased to 173/92 standing GENERAL: No acute distress. She is alert and oriented. She is much more awake today. NECK: Thick. CARDIAC EXAM: No ventricular heave. Regular, normal S1, S2. There were no audible murmurs, rubs or gallops. LUNGS: Bibasilar crackles, otherwise clear. ABDOMEN: Mildly distended, diffusely tender. Normoactive bowel sounds. EXTREMITIES: No cyanosis or pitting edema. MEDICATIONS: Include Eliquis 5 mg p.o. b.i.d., Augmentin 400 mg p.o. b.i.d., citalopram 20 mg daily, Neurontin 300 mg p.o. b.i.d., midodrine 2.5 mg p.o. 3 times daily, Protonix 40 mg daily, potassium chloride 20 mEq daily, prednisone 40 mg daily, simvastatin 20 mg at bedtime, Carafate 1 g p.o. q.i.d., Spiriva 1 puff daily. LABORATORY DATA: Sodium 142, potassium 4.2, BUN 15, creatinine 0.99, albumin 2.7. WBC 7.6, hemoglobin 10.3, platelets 176. Telemetry personally reviewed. She does not appear to have any arrhythmia over the weekend. No significant ectopy. She is currently in sinus rhythm. She currently has low grade sinus tachycardia with heart rates in the low 100s. ASSESSMENT AND PLAN: 1. Tachycardia: She has low-grade sinus tachycardia currently but is also visibly upset. Monitor for any etiology for sinus tachycardia. She also does have mildly distended abdomen with diffuse tenderness and apparently had several bouts of diarrhea last night. Monitor her fluid status carefully. However, it is difficult on exam. Monitor to make sure that she is taking adequate p.o. fluids, especially if having several bouts of diarrhea and if she becomes more tachycardic, would consider IV fluids. 2. Premature supraventricular complexes: She has not had any significant ectopy, no frequent ectopy. 3. Supraventricular tachycardia: On 12/22/2017, she did have a very brief episode of nonsustained SVT lasting less than 10 beats. No specific treatment recommended at this time given her history of orthostatic hypotension. 4. Orthostatic hypotension: She felt lightheaded when standing up today and although her heart rate did become a bit more tachycardic when standing upright, her blood pressure also increased. Continue current dose of midodrine for now. If she has worsening symptoms in the future, especially if she is noted to have further orthostatic hypotension, could consider increasing midodrine, but would continue current dose for now. 5. Shortness of breath: She apparently had witnessed aspiration according to records and has been treated for pneumonitis from the primary team. Her lung exam has not changed. 6. Disposition: Please call with any other questions or concerns. Cardiology will sign off at this time.
--- NOTE | 2017-12-25 10:11 | Pulmonary Consultation ---
History General Date of Service: Dec 25, 2017. Stated Complaint: Pneumonitis HPI The patient is a 82 year old female who presents to [facility] with complaints of Pneumonitis. The patient's primary care provider is Michael De Souza M.D.. 82y/o female admitted to [facility] admission with acute on chronic respiratory insufficiency, difficulty breathing, possible aspiration and worsening fatigue. Last seen in the pulmonary clinic 12/15/2017 with history of weakness falling out of her chair 3 weeks prior and increased bilateral wheezing per clinical evaluation Dr. De Souza and home nursing. Patient is also been experiencing dizziness/vertigo which appears to be relieved with Dramamine. At the time of her ED evaluation the patient did have some yeast on her urinary evaluation and was given Diflucan. He was still working on her outpatient trilogy machine and were slowly titrating down her prednisone attempting to move down to 40 mg daily. PmHx: Pulmonary embolism, sleep apnea/OHV, COPD, oxygen dependent 2-5L, diaphragmatic insufficiency/status post fundoplication, steroid-induced myopathy , orthostatic hypotension, hypertension, sclerotic aortic valve, chronic lymphedema, possible paroxysmal atrial fibrillation-currently within normal limits, chronic shortness of breath. Today the patient still notes she is severely fatigued but appears to be back to her baseline respiratory status. At this time she denies any productive cough, fever, chills, pleurisy, chest pain, fever or chills. Current workup Urine(12/13/2017): Yeast not Rabia albicans species EKG 12/22/2017: NSR, nonspecific ST and T-wave abnormalities Blood culture 2: No growth to date VBG (12/21/17): 7.42/48 corrected to 7.46/40 SaO2: 82-98% on 3-4L nc Pro-calcitonin: 0.15 Lactic acid: 2.6--1.9 Creatinine 0.99 Influenza a and B antibody/PCR: Negative UA: Within normal limits Chest x-ray 12/21/2017: No acute changes as compared to previous imaging CT chest 12/21/2017: Small pleural effusion/right: Subtle nodular airspace opacities in the right perihilar region (personally reviewed previous CT imaging last CTA 10/02/2017: No acute changes) Current pulmonary treatment/medications: 1. Boost twice daily 2. Duo nebs 4 times daily 3. Prednisone 40 mg 4. Augmentin 400 mg twice daily 5. Spiriva 6. Protonix 40 mg 7. Eliquis 5 mg twice daily next Discontinued medications 1. Zosyn 2. Ceftriaxone 3. Tamiflu Previous workup CXR (10/21/16) bilateral costo-phrenic blunting with infiltrate vs. ateltectasis Abdominal US (10/23/16) mild YATES otherwise WNL Thoracic CTA (10/20/16) compared to 10/17/16 a. No PE b. Small rt sided pleural effusion with infiltrates vs. ateltectasis c. LLL 6mm pulmonary nodule d. Lingular infiltrate e. Vascular congestion f. RLL infiltrate ABG 1) 04/14/17 7.46/42// (5L) A-a Gradient: 100 2) 01/18/17 7.50/42//32 (RA) A-a Gradient: 23 3) 01/14/17 7.45/// (3L) A-a Gradient: 56 4) 12/01/16 7.49/37// (35%) A-a Gradient: 100 5) 11/25/16 7.49/38// (3L) A-a Gradient: 70 6) 11/11/16 7.51/34// (RA) A-a Gradient: 34 7) 10/23/16 7.52///23 (RA) A-a Gradient: 33 8) 08/27/16 7.43/46/75/30 (1.5L) A-a Gradient: 48 9) 09/22/15 7.42/45// (RA) A-a Gradient: 55 Cardiac Echo (10/21/16) a. LV: mild LVH, EF=65-70% b. RV: function WNL, TAPSE >1.5cm c. Lipomatous hypertrophy of the inter-atrial septum is noted d. IVC Sniff: WNL Cardiac catheterization 04/20/2007: No CAD. Echo 04/30/2016: Small LV cavity size. LV EF greater than 65%. Type 1 diastolic dysfunction. Normal wall motion. Sclerotic aortic valve without significant stenosis. Echo 10/21/2016: Normal LV size and systolic function. EF 65-70%. No regional wall motion abnormalities. Mild concentric LVH. Grade 1 diastolic dysfunction. No significant valvular abnormalities. Limited echo 11/30/2016: Normal LV size and systolic function. EF 65-70%. Estimated RVSP at the upper limits of normal at 30 mmHg. Central venous pressure normal. Primary function studies 08/07/16 Spirometry: Within normal limits Lung lungs: Mild elevation of the residual volume Mildly decreased diffusion capacity without alveolar volume correction at 70% Bronchoscopy 07/06/2017 Trachea: [place] dependent posterior wall mucous plugs and erythema, possible secretions Left bronchial tree: Posterior wall erythema with diffuse mucous plugs and oral secretions Right bronchial tree: Posterior wall erythema with diffuse mucous plugs oral secretions Microbiology URINE: (07/24/15) Escherichia coli (09/01/15) Enterococcus faecalis (12/08/15) Lactobacillus species (11/25/16) Citrobacter species (07/07/17) Escherichia coli (07/24/17) Escherichia coli BAL (01/25/16) fungal species (06/30/16) fungal species (11/28/16) MRSA (01/15/17) fungal species (10/09/2017) Bordetella Bronchiseptica Blood (04/24/16) Propionibacterium acnes Skin (04/17/17) right lower extremity: Pseudomonas aeruginosa, Enterococcus faecalis Past medical history 1. Chronic respiratory insufficiency 2. Allergic rhinitis 3. Anemia 4. Anxiety 5. Mild to moderate aortic sclerosis 6. COPD/asthma 7. Cellulitis-right upper extremity 8. Chronic constipation 9. Chronic pain syndrome 10. Chronic kidney disease 11. Orthostatic hypotension-fall with head injury 12. Diabetes mellitus 13. PE/DVT 14. Dysphasia---- 15. Fibromyalgia 16. GERD 17. Hypertension 18. Hypoparathyroidism-status post ablation 19. Internal hemorrhoids 20. Lumbar radiculopathy 21. Medullary carcinoma thyroid 22. MRSA 23. History of pleural effusion 24. Recurrent pneumonias 25. 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 Shingles 27. Solitary pulmonary nodule 28. Traumatic compression fracture T3 29. Vitamin B-12 and D deficiency Past surgical history 1. Adrenalectomy 2. Cervical atherogenesis 3. Lumbar arthrodesis 4. Breast biopsy 5. Multiple bronchoscopies 6. Hysterectomy 7. Knee arthroplasty/medial meniscus repair 8. Nerve block transforaminal epidural lumbar L4 through L5 9. Curtis-diaphragmatic plication 10. Tonsillectomy with adenoidectomy 11. Total thyroidectomy 12. Vaginal sling secondary to stress incontinence Family history Mother-breast cancer Father-kidney stones, hypertension Grandmother-breast cancer Social history Alcohol: No history of use or abuse Drugs: No history of use or abuse Marital status: Tobacco: Never smoker Occupation: Retired Outpatient medications 1. Saline nebulizer 2. vitamin B12 3. Lorazepam 0.5 mg nightly 4. ipratropium/albuterol nebulizer 4 times daily 5. prednisone 42.5 mg daily-tapering down 2.5 mg every 2 week 6. Spiriva Respimat 1.25 mcg 7. tramadol 50 mg every 6 as needed pain 8. Mucinex 1200 mg p.o. twice daily as needed 9. Basaglar 22U QHS 10. NovoLog 11. Eliquis 5 mg 12. Dexilant 60 MG Oral Capsule Delayed Release 13. gabapentin 300 mg twice daily 14. Carafate 15. simvastatin 20 mg 16. Spironolactone 25 mg twice daily 17. calcium carbonate 18. Levothyroxine 100 mcg daily 19. Melatonin 10 mg nightly 20. Diclofenac 1% gel 21. Hydrocodone-acetaminophen 10/325 mg every 4 hours as needed 22. Midrin 2.5 mg 3 times daily 23. ROPINIRole HCl - 0.5 MG Oral Tablet 24. [id number] 50-325-40 MG Oral Tablet; TAKE 1 TABLET Every 25. Citalopram Hydrobromide 20 MG Oral Tablet; take 1 and 1/2 tablet daily; 26. Iron 325 (65 Fe) MG Oral Tablet; Take 1 tablet daily; 27. Linzess 290 MCG Oral Capsule; Take 1 tablet daily; 28. Vitamin D 1000 UNIT Oral Tablet; TAKE 1 TABLET DAILY Historian: patient, EMS Review of Systems Constitutional: reports: as stated in HPI Eyes: reports: no symptoms ENT: reports: nasal congestion Cardiovascular: reports: as stated in HPI Respiratory: reports: as stated in HPI Gastrointestinal: reports: no symptoms Genitourinary - Female: reports: no symptoms Musculoskeletal: reports: arthralgias, myalgias Neurologic: reports: no symptoms Psychiatric: reports: depression Hematologic / Lymphatic: easy bleeding Allergic / Immunologic: no symptoms Past Medical History Past Medical History: Please refer to HPI Past Medical History: anxiety, asthma, depression, hypothyroidism, osteoarthritis, urinary tract infection, other Past Surgical History: Please refer to HPI Past Surgical History: adenoidectomy, appendectomy, hysterectomy, orthopedic surgery, spinal surgery, thyroidectomy, TKR, tonsillectomy Family History Diabetes mellitus FH: cancer FH: gallbladder disease FH: heart disease FH: lung disease Hypertension Kidney disease or stones Please refer to HPI Social History Please refer to HPI Hx Tobacco Use In Past Year?: No Smoking Status: Never Smoker Alcohol: no current use Drug Use: none Marital status: Housing status: lives with family Occupational Status: retired Immunizations History of Influenza Vaccine: N/A Influenza Vaccine Date: Jun 18, 2012 History of Tetanus Vaccine?: Yes Tetanus Immunization Date: Mar 18, 2004 History of Pneumococcal: Yes Pneumococcal Date: May 31, 2010 History of Hepatitis B Vaccine: No History of MDRO History of MDRO: Yes Type of MDRO: MRSA Allergies Coded Allergies: Pneumococcal Vaccine (Verified Allergy, Severe, SHORTNESS OF BREATH, ) Erythromycin (Verified Allergy, Mild, RASH, 12/21/17) Adhesives (Verified Allergy, Unknown, TAPE-REDNESS, BLISTERS, 12/21/17) Metronidazole (Verified Allergy, Unknown, skin rash, 12/21/17) allergic to generic form Phenazopyridine (Verified Allergy, Unknown, abdominal pain/rash, 12/21/17) Polymyxin B (Verified Allergy, Unknown, 12/21/17) Salicylates (Verified Allergy, Unknown, pt states rash with ASA 325 but not ASA 81mg, 12/21/17) Tetracycline (Verified Allergy, Unknown, RASH, 12/21/17) Morphine (Verified Adverse Reaction, Intermediate, urinary retention - oral morphine only, 12/21/17) Diltiazem (Verified Adverse Reaction, Mild, FLUID RETENTION, 12/21/17) Metoclopramide (Verified Adverse Reaction, Mild, TREMORS, 12/21/17) Bacitracin (Verified Adverse Reaction, Unknown, "MAKES IT WORSE"-OK IF NOT OTC MEDICATION, 12/21/17) OKAY IF NOT OVER THE COUNTER MEDICATION Current Medications Reported Home Medications Medications Dose Route/Sig Max Daily Dose Days Date Category Dose Instructions Carafate (Sucralfate) 1 Gm/10 Ml Susp 10 Ml PO QID 30 12/22/17 Reported Prednisone 10 Mg Tab 40 Mg PO DAILY 12/22/17 Reported Augmentin 400MG/5ML (Amoxicillin/Clavulanate Potassium) 400 Mg/5 Ml Susp 11 Ml PO BID 7 12/21/17 Rx Eliquis (Apixaban) 5 Mg Tab 5 Mg PO BID 12/13/17 Reported Probiotic (Probiotic Product) 1 Tab Tab 1 Tab PO DAILY 12/13/17 Reported Spiriva Handihaler (Tiotropium [place]) 30 Puff/540 Mcg Aerp 2 Puffs INH DAILY 12/13/17 Reported Midodrine HCl (Midodrine) 2.5 Mg Tab 2.5 Mg PO TID 12/13/17 Reported b/p 130-160 call cardiology Lantus Solostar (Insulin Glargine) 100 Unit/Ml Inj 22 SC QAM 12/13/17 Reported Klor-Con (Potassium Chloride) 20 Meq Tabcr 20 Meq PO DAILY 12/13/17 Reported Kp Ferrous Sulfate (Ferrous Sulfate) 325 Mg Tab 325 Mg PO DAILY 12/13/17 Reported Fioricet (Acetaminophen/Butalbital/Caffeine) 1 Ea Tab 1 Tab PO Q4 PRN 12/13/17 Reported Levothyroxine Sodium 100 Mcg Tab 100 Mcg PO DAILY 12/13/17 Reported Mucinex Dm (Dextromethorphan-Guaifenesin) 1 Tab Tab 1,200 Mg PO Q12 12/13/17 Reported Tylenol Arthritis Ext Rel (Acetaminophen) 650 Mg Cplt 650 Mg PO Q4 PRN 12/13/17 Reported [place] 10MG/325MG (Acetaminophen/Hydrocodone Bitart) Tab 1 Tab PO Q4H PRN 12/13/17 Reported PRN PAIN Linzess (Linaclotide) 290 Mcg Cap 290 Mcg PO DAILY PRN 10/02/17 Reported Vitamin D3 (Cholecalciferol) 2,000 Unit Cap 1,000 Units PO DAILY 09/19/17 Reported Neurontin (Gabapentin) 300 Mg Cap 300 Mg PO BID 09/19/17 Reported Citalopram Hydrobromide 20 Mg Tab 20 Mg PO DAILY 09/19/17 Reported Nystop (Nystatin (Topical)) 100,000 Unit/Gm Pow 1 Appln TOP TID 07/07/17 Reported Novolog Flexpen (Insulin Aspart) 100 Units/Ml Inj SQ QPM 07/07/17 Reported SLIDING SCALE Voltaren 1% Top Gel (Diclofenac Sodium (Topical)) 1 % Gel 1 Appln TOP PRN UD 07/07/17 Reported Dexilant (Dexlansoprazole) 60 Mg Cap 60 Mg PO QAM 07/07/17 Reported Calcitriol 0.25 Mcg Cap 0.25 Mcg PO DAILY 07/07/17 Reported TAKE WITH CALCIUM Ativan (Lorazepam) 0.5 Mg Tab 0.5 Mg PO HS PRN 04/13/17 Reported Melatonin 10 Mg Tab 10 Mg PO HS 04/13/17 Reported Ultram (Tramadol HCl) 50 Mg Tab 50 Mg PO QID 02/09/17 Reported Duoneb (Ipratropium-Albuterol) 3 Ml Nebu 1 Treatment INH Q4H PRN 10/20/16 Reported Calcium Carbonate 1,250 Mg Tab 1,250 Mg PO HS 02/26/16 Reported Vitamin B-12 (Cyanocobalamin) 500 Mcg Tab 1,000 Mcg PO QAM 12/20/15 Reported Zocor (Simvastatin) 20 Mg Tab 20 Mg PO HS 12/20/15 Reported Riboflavin 400 Mg Tab 400 Mg PO QAM 12/01/15 Reported Physical Physical Exam Vital Signs: Date Time Temp Pulse Resp B/P (MAP) Pulse Ox O2 Delivery O2 Flow Rate FiO2 12/25/17 07:45 93 Nasal Cannula 4.0 12/25/17 07:36 36.7 106 28 157/84 (108) 98 Nasal Cannula 4.0 106 168/92 (117) 119 173/92 (119) 12/25/17 07:06 94 18 95 Nasal Cannula 4.0 12/25/17 04:00 Nasal Cannula 4.0 12/25/17 03:28 36.5 96 20 144/75 (98) 99 Nasal Cannula 4.0 12/24/17 23:59 Nasal Cannula 4.0 12/24/17 23:05 37.5 105 20 157/85 (109) 99 Nasal Cannula 2.0 12/24/17 21:56 104 20 95 Mask 7.0 12/24/17 20:00 95 Nasal Cannula 4.0 12/24/17 19:44 37.1 101 20 173/77 (109) 97 Nasal Cannula 4.0 12/24/17 19:31 98 18 97 Nasal Cannula 4.0 12/24/17 16:00 95 Nasal Cannula 4.0 12/24/17 15:32 36.4 100 20 148/74 (98) 95 Nasal Cannula 2.0 12/24/17 15:17 83 18 96 Nasal Cannula 3.0 12/24/17 12:00 96 Nasal Cannula 2.5 12/24/17 11:14 36.6 88 18 144/74 (97) 96 3.0 12/24/17 11:13 75 18 98 Nasal Cannula 3.0 General Appearance: NO APPARENT DISTRESS, uncomfortable Head: NORMOCEPHALIC, ATRAUMATIC Eyes: PERRLA, NO DISCHARGE, EOMI, SCLERAE NORMAL ENT: NORMAL EAR EXAM, NORMAL NASAL EXAM, NORMAL MOUTH EXAM, NORMAL THROAT EXAM Neck: NORMAL RANGE OF MOTION, NO TENDERNESS, TRACHEA MIDLINE, NO STRIDOR Respiratory: other (Decreased breath sounds at the bases with some mild rhonchi but otherwise clear to auscultation) Cardiovasular: REGULAR RATE/RHYTHM, NORMAL S1S2, NO M/G/R, NO MURMUR, NO GALLOP Abdomen: NON TENDER, NORMAL BOWEL SOUNDS, NO REBOUND, NO MASSES, NO GUARDING, NO ORGANOMEGALY Genitourinary - Female: EXTERNAL GENITALIA NORMAL Back: NORMAL INSPECTION, NO MIDLINE TENDERNESS, NO CVA TENDERNESS Upper Extremities: NO EDEMA, NO DEFORMITY Lower Extremities: NO EDEMA, NO DEFORMITY Pulses: carotid (R) (1+), carotid (L) (1+), posterior tibial (R), posterior tibial (L) (1+) Neuro: ALERT, ORIENTED x 3, NORMAL MOTOR EXAM, NORMAL SENSATION, NORMAL CEREBELLAR EXAM Reflexes: biceps (R) (2+), bicpes (L) (2+), achilles (R) (2+), achilles (L) (2+ ) Babinski Testing: right (downgoing), left (downgoing) Psychiatric: NORMAL AFFECT, NO SUICIDAL IDEATION, depressed Diagnostics Labs Results Past 24 Hours Test 12/24/17 11:07 12/24/17 16:12 12/24/17 20:19 12/25/17 03:59 Range/Units Bedside Glucose 110 174 178 70-90 mg/dl White Blood Count 7.60 4.8-10.8 K/uL Red Blood Count 3.27 4.2-5.4 M/uL Hemoglobin 10.3 12.0-16.0 g/dL Hematocrit 32.0 37-47 % Mean Corpuscular Volume 97.9 80-100 fL Mean Corpuscular Hemoglobin 31.5 25-34 pg Mean Corpuscular Hemoglobin Concent 32.2 32-36 g/dl Platelet Count 176 130-400 K/uL Mean Platelet Volume 10.0 7.4-10.4 fL Neutrophils (%) (Auto) 74.6 % Lymphocytes (%) (Auto) 10.0 % Monocytes (%) (Auto) 10.7 % Eosinophils (%) (Auto) 0.1 % Basophils (%) (Auto) 0.3 % Neutrophils # (Auto) 5.67 1.4-6.5 K/uL Lymphocytes # (Auto) 0.76 1.2-3.4 K/uL Monocytes # (Auto) 0.81 0.11-0.59 K/uL Eosinophils # (Auto) 0.01 0-0.5 K/uL Basophils # (Auto) 0.02 0-0.2 K/uL RDW Standard Deviation 60.7 36.4-46.3 fL RDW Coefficient of Variation 16.8 11.5-14.5 % Immature Granulocyte % (Auto) 4.3 % Immature Granulocyte # (Auto) 0.33 0.00-0.02 K/uL Sodium Level 142 136-145 mmol/L Potassium Level 4.2 3.5-5.1 mmol/L Chloride Level 108 98-107 mmol/L Carbon Dioxide Level 27 21-32 mmol/L Anion Gap 7.0 3-11 mmol/L Blood Urea Nitrogen 15 7-18 mg/dl Creatinine 0.99 0.60-1.20 mg/dl Est Creatinine Clear Calc Drug Dose 49.6 ml/min Estimated GFR () 62.4 Estimated GFR (Non- 53.8 BUN/Creatinine Ratio 15.0 10-20 Random Glucose 120 70-99 mg/dl Calcium Level 7.1 8.5-10.1 mg/dl Total Bilirubin 0.4 0.2-1 mg/dl Aspartate Amino Transf (AST/SGOT) 17 15-37 U/L Alanine Aminotransferase (ALT/SGPT) 33 12-78 U/L Alkaline Phosphatase 47 45-117 U/L Total Protein 5.8 6.4-8.2 gm/dl Albumin 2.7 3.4-5.0 gm/dl Globulin 3.1 2.5-4.0 gm/dl Albumin/Globulin Ratio 0.9 0.9-2 Test 12/25/17 06:56 Range/Units Bedside Glucose 107 70-90 mg/dl Diagnostic Radiology Please refer to HPI EKG Please refer to HPI Impression Assessment and Plan 82-year-old female with chronic respiratory insufficiency: 1. Respiratory Insufficiency: The nature of the patient's respiratory insufficiency is unknown as her chest x-ray, VBG and other evaluations during this admission are notably within normal limits. As well there is no signs of acute infection as her pro-calcitonin is within normal limits as well. Patient does have chronic respiratory insufficiency where she has been working to obtain a noninvasive machine currently supposed to be on BiPAP at 12/6 H2O cm. Will initiate therapy at this time trying to maintain the patient on the BiPAP as much as tolerated but definitively when she is asleep. 2. ID: Patient is showing no signs of active infection as there is no acute changes on her radiographic imaging as well as pro-calcitonin white blood cell count within normal limits. She was also previously on Augmentin prior to arrival. At this time I will discontinue the patient's antibiotics. It is possible the patient had an aspiration event but most aspirations approximately 90% only chemical and not infectious in etiology continue to monitor. 3. 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 4. VTE: Patient has a history of chronic anticoagulation with DVT/PE. Continue on Xarelto. This is a difficult case as the patient does have better compliance on Xarelto but as previously stated it is not well evaluated in people with a BMI greater than 40.
[2017-12-25] MEDS: INSULIN HUMAN NPH SC SCH (12:23)
--- NOTE | 2017-12-25 17:16 | Family Medicine Progress Note ---
Progress Note Date of Service Dec 25, 2017. Subjective Pt evaluation today including: conversation w/ patient, conversation w/ family Pt was seen and examined at bedside. Telemetry showed sinus rhythm in the 80s and 90s. No acute overnight events. Pt is wearing oxygen. Daughter reports that the patient had diarrhea. Constitutional: No fever, No chills, No sweats ENT: No hearing loss Respiratory: + shortness of breath, + dyspnea on exertion, No cough, No sputum, No wheezing Cardiovascular: No chest pain Abdomen: + diarrhea, No pain, No nausea, No vomiting, No constipation Musculoskeletal: No joint pain Female : No dysuria Skin: No rash Objective Physical Exam General Appearance: WD/WN, no apparent distress, + obese Eyes: normal inspection, PERRL, EOMI ENT: normal ENT inspection Neck: supple, no adenopathy Respiratory/Chest: chest non-tender, lungs clear (decreased breath sounds at the bases, possible crackling on the right side. 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 Workup negative to date. Aspiration Pneumonitis Witnessed aspiration episode. X-ray and CT suggest pneumonitis involving right perihilar region. Had finished a course of Augmentin as an OP, today is final day of Augmentin. BC currently neg so far, procalcitonin negative. Initially on Zosyn, switched back to Augmentin, broaden coverage if worse. Speech swallow eval without overt aspiration- slippery, dental soft diet Chronic respiratory failure, per Dr. Khalil there's no diaphragmatic paralysis. Will put on BIPAP, per pulm pt should be on BIPAP as much as possible. Supraventricular tachycardia / Falls Last echo in March 2017 showed normal EF. No interventions for SVT and unlikely the cause of her falls Likely sec to orthostasis. Asthma , likely now steroid dependant Duonebs PRN, Spiriva daily. Prednisone 40 mg daily - Pt has been using chronically, will need long wean, defer to outpatient per Dr. Remi stevens. Diarrhea Will test for C. Diff. Encourage outpatient Probiotics. History of Orthostatic Hypotension per cards, continue with Midodrine DM2 on Insulin Diabetic Control Consult. History of DVTs Eliquis bid Chronic Pain - c/w home meds, Gabapentin 300mg BID, Calcium PRN, voltaren gel and Ultram PRN. GERD Continue PPI Near Falls PT and OT on board. Depression c/w Citalopram. Hypothyroid c/w Synthroid HLD c/w Zocor Insomnia Ativan PRN for sleep Diet: DM2 & Heart Healthy, Slippery, dental soft, Fluids held yesterday due to concern for pulmonary edema. DVT Proph: Eliquis BID Dispo: Await pt recs, pt would like to go home on discharge, already has home health. Doesn't want SNF. Interested in home PT. Transfer to Med Surg, no reason we need cardiac monitoring. Full Code Resident Involvement: Resident Care Provided Care Provided: Adult Hospital Medicine Reviewed: Pt Seen/Exam by Me History feeling back to baseline. minimal cough. good appetite Constitutional: denies: fever Respiratory: positive: cough (mild) Cardiovascular: denies chest pain General Appearance: no apparent distress Respiratory: no respiratory distress, decreased breath sounds (base) Cardiovascular: regular rate, rhythm Extremities: pedal edema (mild bilateral) Neurologic/Psychiatric: alert, oriented x 3 Skin Characteristics: warm/dry Assessment/Plan Resident Physician Supervision Note: I independently interviewed and examined the patient and verified the alexander history and physical, reviewed labs and image studies, discussed the case with the resident Dr. Norman and agree with the findings and care plan.
[2017-12-25] MEDS: BOOST GLUCOSE CONTROL PO SCH (19:44)
[2017-12-25] MEDS: SIMVASTATIN 20 MG TAB PO SCH (19:46)
[2017-12-25] MEDS: BENEFIBER PO SCH (19:48)
[2017-12-26] VITALS (10 sets, daily range): BP systolic 152–172; BP diastolic 73–87; PULSE 88–98; TEMP 36.6–36.9; O2SAT 93–99
[2017-12-26] MEDS: RASPBERRY SYRUP 5 ML UDP PO SCH ×5 (00:19→21:11)
[2017-12-26] MEDS: NITROGLYCERIN 2% OINTMENT 30GM TUBE EXT SCH ×4 (00:19→18:04)
[2017-12-26] MEDS: VANCOMYCIN HCL 125 MG/2.5ML SOLN PO SCH ×5 (00:25→21:10)
[2017-12-26] MEDS: LEVOTHYROXINE 100 MCG TAB PO SCH (06:12)
[2017-12-26] MEDS: ALBUT/IPRATROP 3MG/0.5MG NEB 3 ML VIAL INH SCH ×4 (06:42→18:50)
[2017-12-26] MEDS: POTASSIUM CHLORIDE 20 MEQ TABCR PO SCH (07:59)
[2017-12-26] MEDS: TRAMADOL HCL 50 MG TAB PO SCH ×4 (08:02→20:00)
[2017-12-26] MEDS: SUCRALFATE 1 GM/10 ML UDC PO SCH ×4 (08:31→21:11)
[2017-12-26] MEDS: PANTOprazole SOD 40 MG TAB PO SCH (08:31)
[2017-12-26] MEDS: MIDODRINE 2.5 MG TAB PO SCH ×3 (08:31→17:57)
[2017-12-26] MEDS: NYSTATIN POWDER 15GM BTL EXT SCH ×3 (08:32→21:08)
[2017-12-26] MEDS: APIXABAN 2.5 MG TAB PO SCH ×2 (08:32→21:09)
[2017-12-26] MEDS: GABAPENTIN 300 MG CAP PO SCH ×2 (08:32→21:10)
[2017-12-26] MEDS: CITALOPRAM 20 MG TAB PO SCH (08:32)
[2017-12-26] MEDS: LACTOBACILLUS ACIDOPHILUS (FLORANEX) TAB PO SCH ×3 (08:32→17:58)
[2017-12-26] MEDS: BOOST GLUCOSE CONTROL PO SCH ×2 (08:33→17:58)
[2017-12-26] MEDS: CYANOCOBALAMIN 500 MCG TAB (VIT B-12) PO SCH (08:33)
[2017-12-26] MEDS: BENEFIBER PO SCH ×2 (08:35→21:10)
--- NOTE | 2017-12-26 08:46 | Pulmonology Progress Note ---
Pulmonary Progress Note Date of Service Dec 26, 2017. Attending Dr. Khalil Subjective Patient notes she is much improved today able to sit up in bed and eat her breakfast Objective Patient sitting up eating breakfast no signs of respiratory insufficiency. No signs of accessory muscle use. She denies: Fever, chills, productive cough. PmHx: Pulmonary embolism, sleep apnea/OHV, COPD, oxygen dependent 2-5L, diaphragmatic insufficiency/status post fundoplication, steroid-induced myopathy , orthostatic hypotension, hypertension, sclerotic aortic valve, chronic lymphedema, possible paroxysmal atrial fibrillation-currently within normal limits, chronic shortness of breath. Vital signs: Stable on 3-4 L nasal cannula oxygen support Respiratory: Decreased breath sounds globally mild rhonchi at the right base Cardiac: S1-S2, regular rate and rhythm, distant heart sounds Abdomen: Positive bowel sounds soft nontender Extremities: Minimal/trace edema C. difficile testing for 06/07/2018: Positive Blood cultures 2 12/21/2017: Negative Medications 1. Vancomycin 125 mg 4 times daily p.o. 2. DuoNeb's 4 times daily 3. Prednisone 40 mg daily 4. Spiriva daily 5. Eliquis 5 mg twice daily Assessment & Plan 82-year-old female with chronic respiratory insufficiency now with positive C. difficile: 1. Respiratory Insufficiency: Patient with acute on chronic respiratory insufficiency currently appears back to her baseline. There appear to be difficulty obtaining outpatient BiPAP machine so the patient was not being controlled with her recommended 6/12 cm H2O BiPAP support. Appears after being supported yesterday that she is greatly improved and via her respiratory status appears to be back to her baseline. 2. ID: Positive C. difficile stool evaluation. Patient started on vancomycin 125 mg p.o. 4 times daily. Patient doing well off active treatment/antibiotics for pneumonia. Continue to monitor 3. 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 4. VTE: Patient has a history of chronic anticoagulation with DVT/PE. Continue on Xarelto. This is a difficult case as the patient does have better compliance on Xarelto but as previously stated it is not well evaluated in people with a BMI greater than 40. 5. COPD: Patient currently on high doses of steroid as well as a LAMA/Spiriva as well as DuoNeb's. Will continue on current treatment and as an outpatient attempt a long-acting LAMA/LABA inhaler. Data Medications: Current Inpatient Medications Medications (Trade) Dose Ordered Sig/Natasha Route Start Time Stop Time Status Last Admin Dose Admin Acetaminophen (Tylenol Tab) 650 mg Q4H PRN PO 12/21/17 22:15 01/20/18 22:14 Al Hydrox/Mg Hydrox/Simethicone (Maalox Max Susp) 15 ml Q4H PRN PO 12/21/17 22:15 01/20/18 22:14 Magnesium Hydroxide (Milk Of Magnesia Susp) 30 ml Q12H PRN PO 12/21/17 22:15 01/20/18 22:14 Ondansetron HCl (Zofran Inj) 4 mg Q6H PRN IV 12/21/17 22:15 01/20/18 22:14 Nitroglycerin (Nitrostat Tab) 0.4 mg UD PRN SL 12/21/17 22:15 01/20/18 22:14 Morphine Sulfate (MoRPHine SULFATE INJ) 2 mg Q30M PRN IV 12/21/17 22:15 01/04/18 22:14 Citalopram Hydrobromide (celeXA TAB) 20 mg DAILY PO 12/22/17 09:00 01/21/18 08:59 12/25/17 08:28 20 MG Cyanocobalamin (Vitamin B-12 Tab) 1,000 mcg QAM PO 12/22/17 09:00 01/21/18 08:59 12/25/17 08:28 1,000 MCG Diclofenac Sodium (Voltaren 1% Top Gel) 1 appln DAILY PRN EXT 12/21/17 23:15 01/20/18 23:14 Gabapentin (Neurontin Cap) 300 mg BID PO 12/22/17 09:00 01/21/18 08:59 12/25/17 19:45 300 MG Acetaminophen/ Hydrocodone Bitart ([place] 10/325 Tab) 1 tab Q4H PRN PO 12/21/17 23:15 01/04/18 23:14 12/22/17 06:24 1 TAB Albuterol/ Ipratropium (Duoneb) 3 ml Q4H PRN INH 12/21/17 23:15 01/20/18 23:14 12/24/17 21:56 3 ML Levothyroxine Sodium (Synthroid Tab) 100 mcg DAILYBB PO 12/22/17 06:00 01/21/18 05:59 12/26/17 06:12 100 MCG Lorazepam (Ativan Tab) 0.5 mg HS PRN PO 12/21/17 23:15 01/20/18 23:14 Midodrine (Proamatine Tab) 2.5 mg TID@0800,1200,1800 PO 12/22/17 08:00 01/21/18 07:59 12/25/17 17:25 2.5 MG Nystatin (Mycostatin Powder) 1 appln TID EXT 12/22/17 09:00 01/21/18 08:59 12/25/17 19:45 1 APPLN Potassium Chloride (Klor-Con Tab) 20 meq DAILY PO 12/22/17 09:00 01/21/18 08:59 12/25/17 08:30 20 MEQ Simvastatin (Zocor Tab) 20 mg HS PO 12/22/17 21:00 01/21/18 20:59 12/25/17 19:46 20 MG Tiotropium [place] (Spiriva Handihaler Inhaler) 1 puff DAILY INH 12/22/17 09:00 01/21/18 08:59 12/25/17 08:29 1 PUFF Tramadol HCl (Ultram Tab) 50 mg QID PO 12/22/17 09:00 01/21/18 08:59 12/25/17 19:44 50 MG Pantoprazole Sodium (Protonix Tab) 40 mg QAM PO 12/22/17 09:00 01/21/18 08:59 12/25/17 08:28 40 MG Miscellaneous Information (Consult Glycemic Management Pharmacy) 1 ea DAILY PRN N/A 12/22/17 00:21 01/21/18 00:20 Nitroglycerin (Nitroglycerin 2% Oint) 1 inch Q6H EXT 12/22/17 06:00 01/21/18 05:59 12/26/17 06:12 1 INCH Insulin Aspart (novoLOG ASPART) SLIDING SCALE ACHS SC 12/22/17 07:00 01/21/18 06:59 12/25/17 18:36 8 UNITS Glucose (Glucose 40% Gel) 15-30 GRAMS 15 GRAMS... UD PRN PO 12/22/17 00:45 01/21/18 00:44 Glucose (Glucose Chew Tab) 4-8 Tablets 4 Tabl... UD PRN PO 12/22/17 00:45 01/21/18 00:44 Dextrose (Dextrose 50% 50ML Syringe) 25-50ML OF 50% DW IV FOR... UD PRN IV 12/22/17 00:45 01/21/18 00:44 Glucagon (Glucagon Inj) 1 mg UD PRN SQ 12/22/17 00:45 01/21/18 00:44 Apixaban (Eliquis Tab) 5 mg BID PO 12/22/17 09:00 01/21/18 08:59 12/25/17 19:45 5 MG Prednisone (PredniSONE TAB) 40 mg DAILY PO 12/23/17 09:00 01/22/18 08:59 12/25/17 08:28 40 MG Sucralfate (Carafate Susp) 1 gm QID PO 12/22/17 17:00 01/21/18 16:59 12/25/17 19:46 1 GM Albuterol/ Ipratropium (Duoneb) 3 ml QIDR INH 12/23/17 16:00 01/22/18 15:59 12/26/17 06:42 3 ML Insulin Human NPH (novoLIN-N NPH) 35 units QDL SC 12/24/17 11:30 01/23/18 11:29 12/25/17 12:23 35 UNITS Insulin Glargine (Lantus Solostar Pen) 5 units QAM SC 12/24/17 09:00 01/23/18 08:59 12/25/17 08:32 5 UNITS Lactobacillus Acidophilus (Floranex Tab) 4 tab TIDM PO 12/24/17 22:00 01/23/18 21:59 12/25/17 17:23 4 TAB Enteral Nutritional Formula (Boost Glucose Control) 1 can BIDM PO 12/25/17 16:45 01/24/18 16:44 12/25/17 19:44 1 CAN Non-Formulary Medication (Non-Formulary Patient'S Own Med) 1 ea BID PO 12/25/17 20:00 01/24/18 20:59 12/25/17 19:48 1 EA Vancomycin HCl (Vancomycin Oral Soln) 125 mg QID PO 12/26/17 00:00 01/09/18 00:00 12/26/17 00:25 125 MG Raspberry (Raspberry Syrup 5ml Cup) 5 ml QID PO 12/26/17 00:00 01/09/18 00:00 12/26/17 00:19 5 ML Vital Signs: Date Time Temp Pulse Resp B/P (MAP) Pulse Ox O2 Delivery O2 Flow Rate FiO2 12/26/17 07:49 36.8 90 20 152/80 (104) 95 Nasal Cannula 4.0 12/26/17 06:43 90 18 97 Nasal Cannula 4.0 12/26/17 06:12 98 163/87 (112) 12/26/17 00:41 Nasal Cannula 3.0 12/25/17 23:35 36.7 100 20 135/67 (89) 100 CPAP 3.0 12/25/17 22:10 101 98 35 12/25/17 19:46 70 18 98 Nasal Cannula 3.0 12/25/17 19:30 100 Nasal Cannula 3.0 35 12/25/17 17:18 36.8 100 18 167/84 (111) 100 Nasal Cannula 4.0 12/25/17 16:15 Nasal Cannula 4.0 12/25/17 16:00 37.3 107 28 97 4.0 12/25/17 12:40 37.3 107 28 155/84 (107) 97 Nasal Cannula 4.0 12/25/17 12:00 97 Nasal Cannula 4.0 12/25/17 11:18 107 98 35 12/25/17 11:17 107 18 98 BiPAP/CPAP 35 Laboratory Results: Last 24 Hours Test 12/25/17 11:24 12/25/17 17:01 12/25/17 20:02 Bedside Glucose 104 mg/dl 128 mg/dl 121 mg/dl
[2017-12-26] MEDS: INSULIN ASPART 100 UNITS/ML 3 ML PEN SC SCH ×4 (08:49→21:17)
[2017-12-26] MEDS: TIOTROPIUM BROMIDE 5 PUFF/90 MCG INH INH SCH (08:51)
[2017-12-26] MEDS: INSULIN GLARGINE SOLOSTAR 100 UNITS/ML 3 ML PEN SC SCH (08:51)
[2017-12-26] MEDS: HYDROCODONE/ACETAMI 10/325 TAB PO PRN (10:14)
[2017-12-26] MEDS ORDERED: INSULIN HUMAN NPH SC SCH (12:00)
--- NOTE | 2017-12-26 12:22 | Pharmacy Progress Note ---
Glycemic Control Progress Note Date of Service Dec 26, 2017. Scope Glycemic Pharmacist consulted for glycemic control to write orders per [facility] inpatient glycemic control protocol. Objective Accuchecks BSG (last 24hrs): Test 12/25/17 17:01 12/25/17 20:02 12/26/17 08:00 12/26/17 11:38 Bedside Glucose 128 mg/dl (70-90) 121 mg/dl (70-90) 74 mg/dl (70-90) 78 mg/dl (70-90) Recent Pertinent Medications Assessment & Plan ASSESSMENT: * See progress note from 12/24/17 for more background info, in short: * Patient is currently receiving an average of ~50 units of insulin per day * 35 units of basal insulin * 8 units of prandial/correctional insulin * BSGs ranging 74 - 121 mg/dl over the past 24hrs * Changes needed to insulin regimen: * AM Fasting BSG = 74 mg/dl. This is slightly below goal range for patient based on inpatient targets and co-morbidities. Therefore Basal insulin needs decreased. Will decrease QDL NPH from 35units ---> 30units. Continue with QAM lantus 5units * Post-prandial BSG was 78. Will loosen up CR from 8-->9. Ms. Philip has been eating large meals. This minimal adjustment will hopefully mitigate lows and prevent a dramatic increase in dinner time BSG. * Please note that the plan above was derived based on current level of insulin resistance and hospital stress. These recommendations are appropriate for inpatient admission only. Plan of care upon discharge will need to be reassessed to avoid potential outpatient hypo/hyperglycemia. Thank you.
[2017-12-26] MEDS: INSULIN HUMAN NPH SC SCH (13:02)
--- NOTE | 2017-12-26 14:39 | Family Medicine Progress Note ---
Progress Note Date of Service Dec 26, 2017. Subjective Pt evaluation today including: conversation w/ patient, conversation w/ family Pt was seen and examined at bedside. Pt is complaining of new onset right hip pain. denies any falls. Denies spraining the right hip. Pt continues to have loose stools. Constitutional: No fever, No chills, No sweats ENT: No hearing loss Respiratory: + shortness of breath, + dyspnea on exertion, No cough, No sputum, No wheezing Cardiovascular: No chest pain Abdomen: + diarrhea, No pain, No nausea, No vomiting, No constipation Musculoskeletal: No joint pain Female : No dysuria Skin: No rash Objective Physical Exam Notes: General Appearance: WD/WN, no apparent distress, + obese Eyes: normal inspection, PERRL, EOMI ENT: normal ENT inspection Neck: supple, no adenopathy Respiratory/Chest: chest non-tender, lungs clear (decreased breath sounds at the bases, no crackles ), no respiratory distress, no accessory muscle use Cardiovascular: regular rate, rhythm, no edema, no gallop, no JVD, no murmur Abdomen: normal bowel sounds, non tender, soft, no organomegaly, no pulsatile mass Extremities: normal range of motion, normal inspection, no calf tenderness, lateral right hip is tender with mild ecchymosis. 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 Workup negative to date. Aspiration Pneumonitis Witnessed aspiration episode. X-ray and CT suggest pneumonitis involving right perihilar region. Had finished a course of Augmentin as an OP, s/p 14 day course of outpatient Augmentin. BC currently neg so far, procalcitonin negative. Initially on Zosyn, switched back to Augmentin, broaden coverage if worse. Speech swallow eval without overt aspiration- slippery, dental soft diet Chronic respiratory failure, per Dr. Khalil there's no diaphragmatic paralysis. Will put on BIPAP, per pulm pt should be on BIPAP as much as possible. Supraventricular tachycardia / Falls Last echo in March 2017 showed normal EF. No interventions for SVT and unlikely the cause of her falls Likely sec to orthostasis. Asthma , likely now steroid dependant Duonebs PRN, Spiriva daily. Prednisone 40 mg daily - Pt has been using chronically, will need long wean, defer to outpatient per Dr. Remi stevens. Diarrhea C. Diff positive on 12/25/17 PM, PO Vanco started that evening. History of Orthostatic Hypotension per cards, continue with Midodrine DM2 on Insulin Diabetic Control Consult. History of DVTs Follow up Doppler RLE for right thigh pain. c/w Eliquis bid Chronic Pain - c/w home meds, Gabapentin 300mg BID, [place] PRN, voltaren gel and Ultram PRN. GERD Continue PPI Near [place] PT and OT recommend longterm facility for rehab. Looking for placement. Depression c/w Citalopram. Hypothyroid c/w Synthroid HLD c/w Zocor Insomnia Ativan PRN for sleep Diet: DM2 & Heart Healthy, Slippery, dental soft. DVT Proph: Eliquis BID Dispo: Outpatient rehab as above. c/w Med Surg. Full Code Resident Involvement: Resident Care Provided Care Provided: Adult Hospital Medicine Reviewed: Pt Seen/Exam by Me History c/o pain in right thigh. Constitutional: denies: fever Respiratory: negative: short of breath Cardiovascular: denies chest pain General Appearance: no apparent distress Respiratory: lungs clear, no respiratory distress Cardiovascular: regular rate, rhythm Gastrointestinal: soft Extremities: other (right thigh - ? tender to touch across the whole thigh) Neurologic/Psychiatric: alert, oriented x 3 Skin Characteristics: warm/dry Assessment/Plan Resident Physician Supervision Note: I independently interviewed and examined the patient and verified the alexander history and physical, reviewed labs and image studies, discussed the case with the resident Dr. Norman and agree with the findings and care plan.
--- NOTE | 2017-12-26 15:38 | DIAGNOSTIC IMAGING REPORT ---
ULTRASOUND RIGHT LOWER EXTREMITY VENOUS CLINICAL HISTORY: Right thigh pain. COMPARISON STUDY: Right lower extremity venous ultrasound dated 11/07/2017. TECHNIQUE: Real-time, grayscale, and color Doppler sonography of the deep veins of the right lower extremity was performed from the inguinal crease to above the knee. The patient could not tolerate compression. The examination is degraded by lack of patient cooperation and large body habitus. The patient discontinued the examination below the superficial femoral vein. FINDINGS: There is no sonographic evidence of deep venous thrombosis identified in the right lower extremity from the common femoral vein to the distal superficial femoral vein. The popliteal vein and the calf vessels were assessed. The greater saphenous vein at the junction with the common femoral vein are clear. IMPRESSION: 1. There is no sonographic evidence of deep venous thrombosis identified in the right lower extremity involving the common femoral vein are the superficial femoral vein. 2. The patient declined assessment of the popliteal vein and the calf veins. Electronically signed by: Justo Mejias M.D. 12/26/2017 3:37 PM Dictated Date/Time: 12/26/2017 3:34 PM
[2017-12-26] MEDS: SIMVASTATIN 20 MG TAB PO SCH (21:09)
[2017-12-27] VITALS (11 sets, daily range): BP systolic 147–173; BP diastolic 69–81; PULSE 82–98; TEMP 36.5–36.7; O2SAT 96–100
[2017-12-27] MEDS: NITROGLYCERIN 2% OINTMENT 30GM TUBE EXT SCH ×5 (00:17→23:42)
[2017-12-27] MEDS: LEVOTHYROXINE 100 MCG TAB PO SCH (05:39)
[2017-12-27] MEDS: ALBUT/IPRATROP 3MG/0.5MG NEB 3 ML VIAL INH SCH ×4 (07:31→19:27)
[2017-12-27] MEDS: MIDODRINE 2.5 MG TAB PO SCH ×3 (08:53→18:01)
[2017-12-27] MEDS: PANTOprazole SOD 40 MG TAB PO SCH (08:53)
[2017-12-27] MEDS: CITALOPRAM 20 MG TAB PO SCH (08:53)
[2017-12-27] MEDS: RASPBERRY SYRUP 5 ML UDP PO SCH ×4 (08:54→21:16)
[2017-12-27] MEDS: GABAPENTIN 300 MG CAP PO SCH ×2 (08:54→21:15)
[2017-12-27] MEDS: LACTOBACILLUS ACIDOPHILUS (FLORANEX) TAB PO SCH ×3 (08:54→17:59)
[2017-12-27] MEDS: CYANOCOBALAMIN 500 MCG TAB (VIT B-12) PO SCH (08:55)
[2017-12-27] MEDS: SUCRALFATE 1 GM/10 ML UDC PO SCH ×4 (08:55→21:15)
[2017-12-27] MEDS: APIXABAN 2.5 MG TAB PO SCH ×2 (08:55→21:15)
[2017-12-27] MEDS: NYSTATIN POWDER 15GM BTL EXT SCH ×3 (08:55→21:15)
[2017-12-27] MEDS: TIOTROPIUM BROMIDE 5 PUFF/90 MCG INH INH SCH (08:55)
[2017-12-27] MEDS: BENEFIBER PO SCH ×2 (08:56→20:00)
[2017-12-27] MEDS: POTASSIUM CHLORIDE 20 MEQ TABCR PO SCH (08:56)
[2017-12-27] MEDS: VANCOMYCIN HCL 125 MG/2.5ML SOLN PO SCH ×4 (08:57→21:17)
[2017-12-27] MEDS: BOOST GLUCOSE CONTROL PO SCH ×2 (08:57→17:59)
[2017-12-27] MEDS: TRAMADOL HCL 50 MG TAB PO SCH ×4 (08:57→21:18)
[2017-12-27] MEDS: INSULIN ASPART 100 UNITS/ML 3 ML PEN SC SCH ×4 (09:13→21:19)
[2017-12-27] MEDS: INSULIN GLARGINE SOLOSTAR 100 UNITS/ML 3 ML PEN SC SCH (09:14)
--- NOTE | 2017-12-27 12:41 | PROGRESS NOTE ---
DATE: 12/27/2017 PROBLEM LIST: Includes: 1. Acute on chronic respiratory insufficiency. 2. Steroid dependence. 3. Steroid dependent and oxygen dependent chronic obstructive pulmonary disease. 4. Chronic deep vein thrombosis, pulmonary embolism. SUBJECTIVE: The patient reports that overall she thinks she is doing better today. She still is a little bit sleepy and tired but feels that her breathing is better. She did use her BiPAP overnight last night. She feels that the BiPAP works better than the Trilogy that she has at home. Currently, she is using her oxygen and is doing well with that. No cough or congestion at this time. No significant shortness of breath, no chest heaviness or tightness. Overall, feels that she is doing better. OBJECTIVE: GENERAL: The patient is an 82-year-old female, lying in bed. She is alert, oriented. Mood is good. Affect is good. She is interactive and cooperative. VITAL SIGNS: Temp 36.5, pulse 87, respirations 20, blood pressure 164/72, pulse ox 98%-99% on 4 L. HEENT: Normocephalic, atraumatic. Pupils equal, round and reactive to light and accommodation. Extraocular movements are intact. [place], moist gingival and buccal mucosa. NECK: Supple. No mass, no adenopathy, no bruit. Neck is short and thick. CHEST: Diminished breath sounds bilaterally. No wheeze, rales or rhonchi noted. CARDIOVASCULAR: Regular rate and rhythm. No murmurs, gallops, or rubs. ABDOMEN: Obese. Patient does have some bloating noted. No tenderness to palpation. No guarding, rigidity or organomegaly. EXTREMITIES: Trace erythema. No edema, no tenderness. No new lab data. No new radiologic data. IMPRESSION: 1. This is an 82-year-old female with chronic respiratory insufficiency who actually had a C. diff positive testing done in regards to respiratory insufficiency. She does have acute on chronic respiratory insufficiency, appears to be close to being back to her normal state. She does need BiPAP. She will need to be transitioned over from the Trilogy that she has at home. She does much better on the BiPAP and is pretty much back to her baseline today. 2. Chronic obstructive pulmonary disease which is steroid dependent. Currently, she is on 40 mg and will continue to work to titrate it down as an outpatient. She is also oxygen dependent and is on medications for her breathing. 2. Chronic deep vein thrombosis, pulmonary embolism, on Xarelto. 3. Clostridium difficile positive. The patient is on oral vancomycin. PLAN: At this point is to continue to monitor. If she continues to do well, we will anticipate possibility of being discharged within the next 24-48 hours and that depends on the hospitalist team. We will continue to try and work to see if we can get a BiPAP for her to use at home. Plan has been reviewed and agreed upon. BREANA
[2017-12-27] MEDS: INSULIN HUMAN NPH SC SCH (13:23)
[2017-12-27 14:19] LABS: BASO % 0.3 %; BASO ABS # 0.02 K/uL (0-0.2); EOS % 0.4 %; EOS ABS # 0.03 K/uL (0-0.5); HEMATOCRIT 32.6 % (37-47); HEMOGLOBIN 10.5 g/dL (12.0-16.0); IG# 0.32 K/uL (0.00-0.02); LYMPH % 8.3 %; LYMPH ABS # 0.63 K/uL (1.2-3.4); MEAN CELL VOLUME 97.9 fL (80-100); MEAN CORPUSCULAR HEMOGLOBIN 31.5 pg (25-34); MEAN PLATELET VOLUME 9.9 fL (7.4-10.4); MONO % 9.3 %; MONO ABS # 0.71 K/uL (0.11-0.59); NEUT % 77.5 %; NEUT ABS # 5.92 K/uL (1.4-6.5); NUCLEATED RED BLOOD CELL ABS 0.05 K/uL (0-0); PLATELET COUNT 182 K/uL (130-400); RED CELL DISTRIBUTION WIDTH CV 16.9 % (11.5-14.5); RED CELL DISTRIBUTION WIDTH SD 60.3 fL (36.4-46.3); WHITE BLOOD COUNT 7.63 K/uL (4.8-10.8)
[2017-12-27 14:21] LABS: MEAN CORPUSCULAR HGB CONC 32.2 g/dl (32-36)
--- NOTE | 2017-12-27 17:51 | Family Medicine Progress Note ---
Progress Note Date of Service Dec 27, 2017. Subjective Pt was seen and examined at bedside. Right hip is not bothering her at rest. Pt continues to have loose stools. No acute complaints. Daughter wanted to know when the past blood work was performed and the absolute RBC count. Constitutional: No fever, No chills, No sweats ENT: No hearing loss Respiratory: + shortness of breath, + dyspnea on exertion, No cough, No sputum, No wheezing Cardiovascular: No chest pain Abdomen: + diarrhea, No pain, No nausea, No vomiting, No constipation Musculoskeletal: No joint pain Female : No dysuria Skin: No rash Objective Physical Exam Notes: General Appearance: WD/WN, no apparent distress, + obese, grossly unchanged exam from previous day. Eyes: normal inspection, PERRL, EOMI ENT: normal ENT inspection Neck: supple, no adenopathy Respiratory/Chest: chest non-tender, lungs clear (decreased breath sounds at the bases, no crackles ), no respiratory distress, no accessory muscle use, on nasal cannula and not BIPAP. Cardiovascular: regular rate, rhythm, no edema, no gallop, no JVD, no murmur Abdomen: normal bowel sounds, non tender, soft, no organomegaly, no pulsatile mass Extremities: normal range of motion, normal inspection, no calf tenderness, lateral right hip is tender with mild ecchymosis. 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 Workup negative to date. Aspiration Pneumonitis Witnessed aspiration episode. X-ray and CT suggest pneumonitis involving right perihilar region. Had finished a course of Augmentin as an OP, s/p 14 day course of outpatient Augmentin. BC currently neg so far, procalcitonin negative. Initially on Zosyn, switched back to Augmentin, broaden coverage if worse. Speech swallow eval without overt aspiration- slippery, dental soft diet. No Abx on DC warranted. Chronic respiratory failure, per Dr. Khalil there's no diaphragmatic paralysis. Not wearing BIPAP in the room, per patient she prefers nasal cannula, recommended continued BIPAP. Per pulm pt should be on BIPAP as much as possible. Per Jaun See's note patient has a Trilogy device at home and he will work on getting a BIPAP machine at home for the patient. Supraventricular tachycardia / Falls Last echo in March 2017 showed normal EF. No interventions for SVT and unlikely the cause of her falls Likely sec to orthostasis. Asthma , likely now steroid dependant Duonebs PRN, Spiriva daily. Prednisone 40 mg daily - Pt has been using chronically, will need long wean, defer to outpatient per Dr. Remi stevens. Diarrhea C. Diff positive on 12/25/17 PM, PO Vanco started on 12/25/2017. Anemia (chronic) On admission Hemoglobin was 13, after fluid resuscitation pt went back down to baseline of around 10.5. Per daughter, pt needs a transfusion if she goes below [address] Farrell. I reviewed Dr. Farrell's note from several years ago and he states that should hemoglobin dip below 10.5 pt is a candidate for erythropoietin. Stat CBC was obtained and hemoglobin was 10.5. Per Dr. Farrell's note he does not think the patient's fatigue is from this low hemoglobin. History of Orthostatic Hypotension per cards, continue with Midodrine DM2 on Insulin Diabetic Control Consult. History of DVTs Doppler RLE was negative for DVT. c/w Eliquis bid Chronic Pain - c/w home meds, Gabapentin 300mg BID, [place] PRN, voltaren gel and Ultram PRN. GERD Continue PPI Near Falls Daughter and Pt has declined multiple rehab locations for reasons including not being able to accommodate a private room. Please see Case management notes. The only remaining option is to DC home with services. OT will come see the patient early in the AM. Anticipate DC tomorrow. Patient is medically cleared for discharge. Depression c/w Citalopram. Hypothyroid c/w Synthroid HLD c/w Zocor Insomnia Ativan PRN for sleep Diet: DM2 & Heart Healthy, Slippery, dental soft. DVT Proph: Eliquis BID Dispo: Outpatient rehab as above. c/w Med Surg. Full Code Resident Involvement: Resident Care Provided Care Provided: Adult Hospital Medicine Reviewed: Pt Seen/Exam by Me History right thigh pain is better diarrhea - multiple loose stools yesterday and some today Constitutional: denies: fever Respiratory: negative: short of breath Cardiovascular: denies chest pain General Appearance: no apparent distress Respiratory: lungs clear, no respiratory distress Cardiovascular: regular rate, rhythm Gastrointestinal: soft Neurologic/Psychiatric: alert, oriented x 3 Skin Characteristics: warm/dry Assessment/Plan Resident Physician Supervision Note: I independently interviewed and examined the patient and verified the alexander history and physical, reviewed labs and image studies, discussed the case with the resident Dr. Norman and agree with the findings and care plan.
[2017-12-27] MEDS: SIMVASTATIN 20 MG TAB PO SCH (21:16)
[2017-12-28] VITALS (8 sets, daily range): BP systolic 143–167; BP diastolic 64–83; PULSE 74–92; TEMP 36.5–36.9; O2SAT 96–99
[2017-12-28] MEDS: NITROGLYCERIN 2% OINTMENT 30GM TUBE EXT SCH ×3 (05:43→18:38)
[2017-12-28] MEDS: LEVOTHYROXINE 100 MCG TAB PO SCH (05:45)
[2017-12-28] MEDS: ALBUT/IPRATROP 3MG/0.5MG NEB 3 ML VIAL INH SCH ×4 (07:17→19:53)
[2017-12-28] MEDS: BENEFIBER PO SCH ×2 (09:08→20:45)
[2017-12-28] MEDS: BOOST GLUCOSE CONTROL PO SCH ×2 (09:08→16:37)
[2017-12-28] MEDS: VANCOMYCIN HCL 125 MG/2.5ML SOLN PO SCH ×4 (09:10→20:42)
[2017-12-28] MEDS: SUCRALFATE 1 GM/10 ML UDC PO SCH ×4 (09:10→20:42)
[2017-12-28] MEDS: LACTOBACILLUS ACIDOPHILUS (FLORANEX) TAB PO SCH ×3 (09:10→17:11)
[2017-12-28] MEDS: TRAMADOL HCL 50 MG TAB PO SCH ×4 (09:10→20:41)
[2017-12-28] MEDS: NYSTATIN POWDER 15GM BTL EXT SCH ×3 (09:11→19:03)
[2017-12-28] MEDS: TIOTROPIUM BROMIDE 5 PUFF/90 MCG INH INH SCH (09:11)
[2017-12-28] MEDS: PANTOprazole SOD 40 MG TAB PO SCH (09:11)
[2017-12-28] MEDS: APIXABAN 2.5 MG TAB PO SCH ×2 (09:11→20:43)
[2017-12-28] MEDS: CITALOPRAM 20 MG TAB PO SCH (09:12)
[2017-12-28] MEDS: CYANOCOBALAMIN 500 MCG TAB (VIT B-12) PO SCH (09:13)
[2017-12-28] MEDS: RASPBERRY SYRUP 5 ML UDP PO SCH ×4 (09:13→20:42)
[2017-12-28] MEDS: GABAPENTIN 300 MG CAP PO SCH ×2 (09:13→20:44)
[2017-12-28] MEDS: MIDODRINE 2.5 MG TAB PO SCH ×3 (09:13→19:02)
[2017-12-28] MEDS: POTASSIUM CHLORIDE 20 MEQ TABCR PO SCH (09:13)
[2017-12-28] MEDS: INSULIN ASPART 100 UNITS/ML 3 ML PEN SC SCH ×4 (09:17→21:49)
[2017-12-28] MEDS: INSULIN GLARGINE SOLOSTAR 100 UNITS/ML 3 ML PEN SC SCH (09:17)
[2017-12-28] MEDS: HYDROCODONE/ACETAMI 10/325 TAB PO PRN (10:12)
--- NOTE | 2017-12-28 10:59 | Pharmacy Progress Note ---
Pharmacy Glycemic Short Note 2 Date of Service Dec 28, 2017. OUTPATIENT ANTIDIABETIC REGIMEN: * Lantus 22 units in the morning and Novolog sliding scale Test 12/27/17 11:58 12/27/17 16:35 12/27/17 20:12 12/28/17 08:02 Bedside Glucose 113 mg/dl (70-90) 135 mg/dl (70-90) 234 mg/dl (70-90) 135 mg/dl (70-90) ASSESSMENT: 12/28/17 * Patient received 57 units of insulin yesterday * Remains on NPH + Lantus for basal insulin and once daily prednisone coverage; also on Novolog w/ CF/CR * Trend of HS BSGs shows that 35 units of NPH was too much and 30 units is now not enough * Will increase slightly to 33 units. This is being administered w/ lunch d/t most significant postprandial effects in the evening. * No changes to Lantus or Novolog parameters PLAN FOR INPATIENT GLYCEMIC CONTROL: * Basal insulin * Increase NPH to 33 units SQ with lunch * Lantus 5 units QAM * Bolus insulin - no change * NovoLog per scale ACHS or Q6hrs while NPO * Goal Range: Low 110 mg/dL - High 140 mg/dL * Correction Factor: 25 mg/dL/unit * Nutritional / Prandial insulin per carb ratio of 1 unit per 9 grams CHO consumed
[2017-12-28] MEDS: INSULIN HUMAN NPH SC SCH (13:20)
--- NOTE | 2017-12-28 16:20 | Family Medicine Progress Note ---
Progress Note Date of Service Dec 28, 2017. Subjective Pt was seen and examined at bedside. No acute overnight events. No current complaints. Daughter not in the room. Blood work from previous day was reviewed with the patient. Per nurse patient was up out of bed to the chair earlier in the day. When asked why she didn't want to go to [facility] or [facility] pt confirmed it was because they could not provide a single room. When asked why she didn't want a single room pt yelled "I'm sick of telling everyone why I want a double room. It should be in the chart." I calmly explained to the patient that despite information being in the chart I would like to hear here opinion on the matter and health care providers always ask the same questions because repetition reinforces information and can tease out new information. Pt verbalized understanding and calmed down. Constitutional: No fever, No chills, No sweats ENT: No hearing loss Respiratory: + shortness of breath, + dyspnea on exertion, No cough, No sputum, No wheezing Cardiovascular: No chest pain Abdomen: + diarrhea, No pain, No nausea, No vomiting, No constipation Musculoskeletal: No joint pain Female : No dysuria Skin: No rash Objective Physical Exam Notes: General Appearance: WD/WN, no apparent distress, + obese, Eyes: normal inspection, PERRL, EOMI ENT: normal ENT inspection Neck: supple, no adenopathy Respiratory/Chest: chest non-tender, lungs clear (decreased breath sounds at the bases, no crackles ), no respiratory distress, no accessory muscle use, on nasal cannula and not BIPAP. Cardiovascular: regular rate, rhythm, no edema, no gallop, no JVD, no murmur Abdomen: normal bowel sounds, non tender, soft, no organomegaly, no pulsatile mass Extremities: normal range of motion, normal inspection, pt reports being tender in every area she is touched, hips, knees, calves, shoulders, elbows, chest and hands. She rates the worst pain as being over the lateral right hip. 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 Workup negative to date. Patient has refused placement in every SNF offered - does not want single room, wants only to be placed with other PT patients not ad terminal makeup operator patients, will not go to [facility]. Aspiration Pneumonitis Witnessed aspiration episode. X-ray and CT suggest pneumonitis involving right perihilar region. Had finished a course of Augmentin as an OP, s/p 14 day course of outpatient Augmentin. BC currently neg so far, procalcitonin negative. Initially on Zosyn, switched back to Augmentin, broaden coverage if worse. Speech swallow eval without overt aspiration- slippery, dental soft diet. No Abx on DC warranted. Chronic respiratory failure, per Dr. Khalil there's no diaphragmatic paralysis. Not wearing BIPAP in the room, per patient she prefers nasal cannula, recommended continued BIPAP. Per pulm pt should be on BIPAP as much as possible. Per Jaun See's note patient has a Trilogy device at home and he will work on getting a BIPAP machine at home for the patient. Supraventricular tachycardia / Falls Last echo in March 2017 showed normal EF. No interventions for SVT and unlikely the cause of her falls Likely sec to orthostasis. Pt has declined all SNF placements , will get home PT - pt is staying today for worsening right hip pain. Asthma , likely now steroid dependant Duonebs PRN, Spiriva daily. Prednisone 40 mg daily - Pt has been using chronically, will need long wean, defer to outpatient per Dr. Khalil recs. Diarrhea C. Diff positive on 12/25/17 PM, PO Vanco started on 12/25/2017. Anemia (chronic) On admission Hemoglobin was 13, after fluid resuscitation pt went back down to baseline of around 10.5. Per daughter, pt needs a transfusion if she goes below [address] Farrell. I reviewed Dr. Farrell's note from several years ago and he states that should hemoglobin dip below 10.5 pt is a candidate for erythropoietin. Stat CBC was obtained and hemoglobin was 10.5. Per Dr. Farrell's note he does not think the patient's fatigue is from this low hemoglobin. History of Orthostatic Hypotension per cards, continue with Midodrine DM2 on Insulin Diabetic Control Consult. History of DVTs Doppler RLE was negative for DVT. c/w Eliquis bid Right hip pain sec to arthritis Chronic Pain - c/w home meds, Gabapentin 300mg BID, [place] PRN, voltaren gel and Ultram PRN. GERD Continue PPI Near Falls Daughter and Pt has declined multiple rehab locations for reasons including not being able to accommodate a private room. Please see Case management notes. The only remaining option is to DC home with services. OT will come see the patient early in the AM. Expect DC tomorrow. Depression c/w Citalopram. Hypothyroid c/w Synthroid HLD c/w Zocor Insomnia Ativan PRN for sleep Diet: DM2 & Heart Healthy, Slippery, dental soft. DVT Proph: Eliquis BID Dispo: Outpatient rehab as above. c/w Med Surg. Full Code Resident Involvement: Resident Care Provided Care Provided: Adult Hospital Medicine Reviewed: Pt Seen/Exam by Me History continues to have right hip pain loose stools + Constitutional: denies: fever Respiratory: negative: short of breath Cardiovascular: denies chest pain General Appearance: no apparent distress Respiratory: lungs clear, no respiratory distress Cardiovascular: regular rate, rhythm Extremities: other (right hip with nonspecific tenderness across the whole joint area and thigh) Neurologic/Psychiatric: alert, oriented x 3 Skin Characteristics: warm/dry Assessment/Plan Resident Physician Supervision Note: I independently interviewed and examined the patient and verified the alexander history and physical, reviewed labs and image studies, discussed the case with the resident Dr. Norman and agree with the findings and care plan.
[2017-12-28] MEDS: SIMVASTATIN 20 MG TAB PO SCH (20:43)
[2017-12-29] VITALS (8 sets, daily range): BP systolic 149–157; BP diastolic 73–83; PULSE 88–98; TEMP 36.5; O2SAT 96–98
[2017-12-29] MEDS: HYDROCODONE/ACETAMI 10/325 TAB PO PRN (00:02)
[2017-12-29] MEDS: NITROGLYCERIN 2% OINTMENT 30GM TUBE EXT SCH ×3 (00:18→11:44)
[2017-12-29] MEDS: LEVOTHYROXINE 100 MCG TAB PO SCH (06:09)
[2017-12-29] MEDS: ALBUT/IPRATROP 3MG/0.5MG NEB 3 ML VIAL INH SCH ×3 (07:21→15:47)
[2017-12-29] MEDS: SUCRALFATE 1 GM/10 ML UDC PO SCH ×2 (08:11→11:47)
[2017-12-29] MEDS: VANCOMYCIN HCL 125 MG/2.5ML SOLN PO SCH ×2 (08:12→11:45)
[2017-12-29] MEDS: RASPBERRY SYRUP 5 ML UDP PO SCH ×2 (08:12→11:45)
[2017-12-29] MEDS: TRAMADOL HCL 50 MG TAB PO SCH ×2 (08:13→11:55)
[2017-12-29] MEDS: LACTOBACILLUS ACIDOPHILUS (FLORANEX) TAB PO SCH ×2 (08:15→11:51)
[2017-12-29] MEDS: GABAPENTIN 300 MG CAP PO SCH (08:15)
[2017-12-29] MEDS: CYANOCOBALAMIN 500 MCG TAB (VIT B-12) PO SCH (08:16)
[2017-12-29] MEDS: MIDODRINE 2.5 MG TAB PO SCH ×2 (08:16→11:51)
[2017-12-29] MEDS: PANTOprazole SOD 40 MG TAB PO SCH (08:17)
[2017-12-29] MEDS: TIOTROPIUM BROMIDE 5 PUFF/90 MCG INH INH SCH (08:17)
[2017-12-29] MEDS: NYSTATIN POWDER 15GM BTL EXT SCH ×2 (08:18→13:43)
[2017-12-29] MEDS: BOOST GLUCOSE CONTROL PO SCH (08:19)
[2017-12-29] MEDS: CITALOPRAM 20 MG TAB PO SCH (08:20)
[2017-12-29] MEDS: APIXABAN 2.5 MG TAB PO SCH (08:20)
[2017-12-29] MEDS: POTASSIUM CHLORIDE 20 MEQ TABCR PO SCH (08:21)
[2017-12-29] MEDS: BENEFIBER PO SCH (08:22)
[2017-12-29] MEDS: INSULIN GLARGINE SOLOSTAR 100 UNITS/ML 3 ML PEN SC SCH (08:35)
[2017-12-29] MEDS: INSULIN ASPART 100 UNITS/ML 3 ML PEN SC SCH ×2 (08:36→13:42)
--- NOTE | 2017-12-29 11:00 | Pulmonology Progress Note ---
Pulmonary Progress Note Date of Service Dec 29, 2017. Attending Dr. Khalil Subjective Patient notes she is back to her baseline respiratory status Objective Patient sitting up in bed eating breakfast at the time of my arrival showing no signs of respiratory insufficiency: She denied productive cough, fever, chills but also notes she has difficulty with clearing some of her secretions in the past PmHx: Pulmonary embolism, sleep apnea/OHV, COPD, oxygen dependent 2-5L, diaphragmatic insufficiency/status post fundoplication, steroid-induced myopathy , orthostatic hypotension, hypertension, sclerotic aortic valve, chronic lymphedema, possible paroxysmal atrial fibrillation-currently within normal limits, chronic shortness of breath. Vital signs: Stable on 4 L nasal cannula oxygen support Respiratory: Decreased breath sounds globally but no weak decrease ventilation in the right lower lobe Cardiac: S1-S2, regular rate and rhythm, distant heart sounds Abdomen: Positive bowel sounds soft nontender Extremities: Minimal/trace edema C. difficile testing for 06/07/2018: Positive Blood cultures (2) 12/21/2017: Negative to date Medications 1. Vancomycin 125 mg 4 times daily p.o. 2. DuoNeb's 4 times daily 3. Prednisone 40 mg daily 4. Spiriva daily 5. Eliquis 5 mg twice daily Assessment & Plan 82-year-old female with chronic respiratory insufficiency now with positive C. difficile: 1. Respiratory Insufficiency: Patient with acute on chronic respiratory insufficiency currently stabilized on BiPAP at 6/12 cm H2O. Most likely brought on by C. difficile infection. Patient appears to be back to her baseline. Suggest continue BiPAP while the patient is asleep even during daytime naps 2. ID: Positive C. difficile stool evaluation. Patient started on vancomycin 125 mg p.o. 4 times daily. Patient doing well off active treatment/antibiotics for pneumonia. 3. 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 4. VTE: Patient has a history of chronic anticoagulation with DVT/PE. Continue on Eliquis. 5. COPD: Patient currently on high doses of steroid as well as a LAMA/Spiriva as well as DuoNeb's. Will continue on current treatment and as an outpatient attempt a long-acting LAMA/LABA inhaler. At this time pulmonary service will sign off please contact us if her clinical status changes Data Medications: Current Inpatient Medications Medications (Trade) Dose Ordered Sig/Natasha Route Start Time Stop Time Status Last Admin Dose Admin Acetaminophen (Tylenol Tab) 650 mg Q4H PRN PO 12/21/17 22:15 01/20/18 22:14 Al Hydrox/Mg Hydrox/Simethicone (Maalox Max Susp) 15 ml Q4H PRN PO 12/21/17 22:15 01/20/18 22:14 Magnesium Hydroxide (Milk Of Magnesia Susp) 30 ml Q12H PRN PO 12/21/17 22:15 01/20/18 22:14 Ondansetron HCl (Zofran Inj) 4 mg Q6H PRN IV 12/21/17 22:15 01/20/18 22:14 Nitroglycerin (Nitrostat Tab) 0.4 mg UD PRN SL 12/21/17 22:15 01/20/18 22:14 Morphine Sulfate (MoRPHine SULFATE INJ) 2 mg Q30M PRN IV 12/21/17 22:15 01/04/18 22:14 Citalopram Hydrobromide (celeXA TAB) 20 mg DAILY PO 12/22/17 09:00 01/21/18 08:59 12/29/17 08:20 20 MG Cyanocobalamin (Vitamin B-12 Tab) 1,000 mcg QAM PO 12/22/17 09:00 01/21/18 08:59 12/29/17 08:16 1,000 MCG Diclofenac Sodium (Voltaren 1% Top Gel) 1 appln DAILY PRN EXT 12/21/17 23:15 01/20/18 23:14 Gabapentin (Neurontin Cap) 300 mg BID PO 12/22/17 09:00 01/21/18 08:59 12/29/17 08:15 300 MG Acetaminophen/ Hydrocodone Bitart ([place] 10/325 Tab) 1 tab Q4H PRN PO 12/21/17 23:15 01/04/18 23:14 12/29/17 00:02 1 TAB Albuterol/ Ipratropium (Duoneb) 3 ml Q4H PRN INH 12/21/17 23:15 01/20/18 23:14 12/24/17 21:56 3 ML Levothyroxine Sodium (Synthroid Tab) 100 mcg DAILYBB PO 12/22/17 06:00 01/21/18 05:59 12/29/17 06:09 100 MCG Lorazepam (Ativan Tab) 0.5 mg HS PRN PO 12/21/17 23:15 01/20/18 23:14 Midodrine (Proamatine Tab) 2.5 mg TID@0800,1200,1800 PO 12/22/17 08:00 01/21/18 07:59 12/29/17 08:16 2.5 MG Nystatin (Mycostatin Powder) 1 appln TID EXT 12/22/17 09:00 01/21/18 08:59 12/29/17 08:18 1 APPLN Potassium Chloride (Klor-Con Tab) 20 meq DAILY PO 12/22/17 09:00 01/21/18 08:59 12/29/17 08:21 20 MEQ Simvastatin (Zocor Tab) 20 mg HS PO 12/22/17 21:00 01/21/18 20:59 12/28/17 20:43 20 MG Tiotropium [place] (Spiriva Handihaler Inhaler) 1 puff DAILY INH 12/22/17 09:00 01/21/18 08:59 12/29/17 08:17 1 PUFF Tramadol HCl (Ultram Tab) 50 mg QID PO 12/22/17 09:00 01/21/18 08:59 12/29/17 08:13 50 MG Pantoprazole Sodium (Protonix Tab) 40 mg QAM PO 12/22/17 09:00 01/21/18 08:59 12/29/17 08:17 40 MG Miscellaneous Information (Consult Glycemic Management Pharmacy) 1 ea DAILY PRN N/A 12/22/17 00:21 01/21/18 00:20 Nitroglycerin (Nitroglycerin 2% Oint) 1 inch Q6H EXT 12/22/17 06:00 01/21/18 05:59 12/29/17 06:08 1 INCH Insulin Aspart (novoLOG ASPART) SLIDING SCALE ACHS SC 12/22/17 07:00 01/21/18 06:59 12/29/17 08:36 6 UNITS Glucose (Glucose 40% Gel) 15-30 GRAMS 15 GRAMS... UD PRN PO 12/22/17 00:45 01/21/18 00:44 Glucose (Glucose Chew Tab) 4-8 Tablets 4 Tabl... UD PRN PO 12/22/17 00:45 01/21/18 00:44 Dextrose (Dextrose 50% 50ML Syringe) 25-50ML OF 50% DW IV FOR... UD PRN IV 12/22/17 00:45 01/21/18 00:44 Glucagon (Glucagon Inj) 1 mg UD PRN SQ 12/22/17 00:45 01/21/18 00:44 Apixaban (Eliquis Tab) 5 mg BID PO 12/22/17 09:00 01/21/18 08:59 12/29/17 08:20 5 MG Prednisone (PredniSONE TAB) 40 mg DAILY PO 12/23/17 09:00 01/22/18 08:59 12/29/17 08:15 40 MG Sucralfate (Carafate Susp) 1 gm QID PO 12/22/17 17:00 01/21/18 16:59 12/29/17 08:11 1 GM Albuterol/ Ipratropium (Duoneb) 3 ml QIDR INH 12/23/17 16:00 01/22/18 15:59 12/29/17 07:21 3 ML Insulin Glargine (Lantus Solostar Pen) 5 units QAM SC 12/24/17 09:00 01/23/18 08:59 12/29/17 08:35 5 UNITS Lactobacillus Acidophilus (Floranex Tab) 4 tab TIDM PO 12/24/17 22:00 01/23/18 21:59 12/29/17 08:15 4 TAB Enteral Nutritional Formula (Boost Glucose Control) 1 can BIDM PO 12/25/17 16:45 01/24/18 16:44 12/29/17 08:19 1 CAN Non-Formulary Medication (Non-Formulary Patient'S Own Med) 1 ea BID PO 12/25/17 20:00 01/24/18 20:59 12/29/17 08:22 1 EA Vancomycin HCl (Vancomycin Oral Soln) 125 mg QID PO 12/26/17 00:00 01/09/18 00:00 12/29/17 08:12 125 MG Raspberry (Raspberry Syrup 5ml Cup) 5 ml QID PO 12/26/17 00:00 01/09/18 00:00 12/29/17 08:12 5 ML Insulin Human NPH (novoLIN-N NPH) 33 units QDL SC 12/28/17 12:00 01/27/18 11:59 12/28/17 13:20 33 UNITS Vital Signs: Date Time Temp Pulse Resp B/P (MAP) Pulse Ox O2 Delivery O2 Flow Rate FiO2 12/29/17 08:00 Nasal Cannula 4.0 12/29/17 07:21 91 16 96 Nasal Cannula 4.0 12/29/17 06:35 36.5 98 20 98 Nasal Cannula 4.0 12/29/17 06:06 92 157/80 (105) 12/29/17 00:16 88 149/73 (98) 12/29/17 00:00 Nasal Cannula 4.0 12/28/17 23:22 36.7 92 20 152/77 (102) 96 Nasal Cannula 2.0 12/28/17 19:54 89 16 98 Nasal Cannula 4.0 12/28/17 16:02 36.9 90 20 143/64 (90) 96 Nasal Cannula 4.0 12/28/17 16:00 Nasal Cannula 4.0 12/28/17 15:17 81 16 99 Nasal Cannula 4.0 12/28/17 11:49 74 16 99 Nasal Cannula 4.0 Laboratory Results: Last 24 Hours Test 12/28/17 12:05 12/28/17 16:56 12/28/17 21:09 12/29/17 07:35 Bedside Glucose 115 mg/dl 199 mg/dl 183 mg/dl 100 mg/dl
--- NOTE | 2017-12-29 11:03 | Pharmacy Progress Note ---
Pharmacy Glycemic Short Note 2 Date of Service Dec 29, 2017. OUTPATIENT ANTIDIABETIC REGIMEN: * Lantus 22 units in the morning and Novolog sliding scale Item Value Date Time Bedside Glucose 135 mg/dl H 12/28/17 0802 Bedside Glucose 115 mg/dl H 12/28/17 1205 Bedside Glucose 199 mg/dl H 12/28/17 1656 Bedside Glucose 183 mg/dl H 12/28/17 2109 Bedside Glucose 100 mg/dl H 12/29/17 0735 ASSESSMENT: * Patient is currently receiving 65 units of insulin per day * 5 units of basal insulin with Lantus * 33 units of basal/steroid induced hyperglycemia with NPH * 27 units of prandial coverage with NovoLog * NPH dose adjusted upwards yesterday since HS BSGs trending upwards from prednisone. Now, BSGs below 200 mg/dl yesterday. No changes needed to regimen today. * NPH dose will need adjusted with each step down in prednisone dosing. Pt currently ordered/receiving Prednisone 40mg PO daily since 12/23/17 PLAN FOR INPATIENT GLYCEMIC CONTROL: * Basal insulin - no change * NPH 33 units SQ with lunch (hold if prednisone is held) * Lantus 5 units QAM * Bolus insulin - no change * NovoLog per scale ACHS or Q6hrs while NPO * Goal Range: Low 110 mg/dL - High 140 mg/dL * Correction Factor: 25 mg/dL/unit * Nutritional / Prandial insulin per carb ratio of 1 unit per 9 grams CHO consumed
[2017-12-29] MEDS: INSULIN HUMAN NPH SC SCH (12:02)
[2017-12-29] MEDS ORDERED: RSPS5 PO (14:25)
[2017-12-29] MEDS ORDERED: VANC1SUS PO (14:25)
--- NOTE | 2017-12-29 14:29 | Discharge Instructions ---
Discharge Instructions Date of Service Dec 29, 2017. Admission Reason for Admission: Pneumonitis Discharge Discharge Diagnosis / Problem: Aspiration Pneumonitis, Clostridium Difficile Discharge Goals Goal(s): Decrease discomfort, Improve function Activity Recommendations Activity Limitations: resume your previous activity . Instructions / Follow-Up Instructions / Follow-Up You were treated at [facility] for aspiration pneumonitis and clostridium difficile. You should continue the treatment for clostridium difficile with vancomycin as prescribed. Please follow up with your primary care physician within the next week follow discharge (Dr De Souza January 01). Please follow up with your elderly sitter as previously arranged on January 16. Current Hospital Diet Patient's current hospital diet: Diabetes Type 2 Diet Discharge Diet Recommended Diet: Diabetes Type 2 Diet Pending Studies Studies pending at discharge: no Medical Emergencies . Who to Call and When: Medical Emergencies: If at any time you feel your situation is an emergency, please call 911 immediately. . Non-Emergent Contact Non-Emergency issues call your: Primary Care Provider . . "Provider Documentation" section prepared by Bradley Crook. .
[2017-12-29] MEDS ORDERED: VANC5CAP PO (15:28)
--- NOTE | 2017-12-29 15:34 | Discharge Instructions ---
Discharge Instructions Date of Service Dec 29, 2017. Admission Reason for Admission: Pneumonitis Activity Recommendations . Current Hospital Diet Patient's current hospital diet: Diabetes Type 2 Diet Medical Emergencies . Who to Call and When: Medical Emergencies: If at any time you feel your situation is an emergency, please call 911 immediately. . Non-Emergent Contact . . "Provider Documentation" section prepared by Bradley Crook. .
--- NOTE | 2017-12-29 21:53 | Discharge Summary ---
Discharge Summary Date of Service Dec 29, 2017. Discharge Summary Admission Date: Dec 21, 2017 at 22:53 Discharge Date: Dec 29, 2017 Discharge Disposition: Home with services (discharge s) Principal Diagnosis: Aspiration pneumonitis, clostridium difficile Problems/Secondary Diagnoses: Tight right hamstring Obesity hypoventilation syndrome Chronic respiratory insufficiency, chronic dyspnea Orthostatic hypotension Sleep Apnea Hypertension Type 2 Diabetes Mellitus Immunizations: Have You Had Influenza Vaccine: N/A Influenza Vaccine Date: Jun 18, 2012 History of Tetanus Vaccine?: Yes Tetanus Immunization Date: Mar 18, 2004 History of Pneumococcal: Yes Pneumococcal Date: May 31, 2010 History of Hepatitis B Vaccine: No Consultations: Pulmonology Cardiology Medication Reconciliation New Medications: Vancomycin Hcl (Vancomycin) 125 Mg Cap 125 MG PO QID for 7 Days, #25 CAP Raspberry (Raspberry Syrup) 5 Ml/Cup Syrp 5 ML PO QID for 7 Days, #140 ML 0 Refills Continued Medications: Acetamin/Butalbital/Caffeine (Fioricet) 1 Ea Tab 1 TAB PO Q4 PRN for Headache, TAB Acetaminophen (Tylenol Arthritis Ext Rel) 650 Mg Cplt 650 MG PO Q4 PRN for Pain, CAP Apixaban (Eliquis) 5 Mg Tab 5 MG PO BID, TAB Calcitriol (Calcitriol) 0.25 Mcg Cap 0.25 MCG PO DAILY TAKE WITH CALCIUM Calcium Carbonate (Calcium Carbonate) 1,250 Mg Tab 1250 MG PO HS Cholecalciferol (Vitamin D3) 2,000 Unit Cap 1000 UNITS PO DAILY, CAP Citalopram Hydrobromide (Citalopram Hydrobromide) 20 Mg Tab 20 MG PO DAILY, TAB Cyanocobalamin (Vitamin B-12) 500 Mcg Tab 1000 MCG PO QAM, TAB Dexlansoprazole (Dexilant) 60 Mg Cap 60 MG PO QAM Dextromethorphan-Guaifenesin (Mucinex Dm) 1 Tab Tab 1200 MG PO Q12, TAB Diclofenac Sodium (Topical) (Voltaren 1% Top Gel) 1 % Gel 1 APPLN TOP PRN UD Ferrous Sulfate (Kp Ferrous Sulfate) 325 Mg Tab 325 MG PO DAILY, TAB Gabapentin (Neurontin) 300 Mg Cap 300 MG PO BID, CAP Hydrocodone/Acetaminophen 10MG/325MG ([place] 10MG/325MG) Tab 1 TAB PO Q4H PRN for Pain, TAB PRN PAIN Insulin Aspart (Novolog Flexpen) 100 Units/Ml Inj SQ QPM SLIDING SCALE Insulin Glargine (Lantus Solostar) 100 Unit/Ml Inj 22 SC QAM, PEN Ipratropium-Albuterol (Duoneb) 3 Ml Nebu 1 TREATMENT INH Q4H PRN for SOB/Wheezing, INHA Levothyroxine Sodium (Levothyroxine Sodium) 100 Mcg Tab 100 MCG PO DAILY, TAB Linaclotide (Linzess) 290 Mcg Cap 290 MCG PO DAILY PRN for Constipation Lorazepam (Ativan) 0.5 Mg Tab 0.5 MG PO HS PRN for Sleep, TAB Melatonin (Melatonin) 10 Mg Tab 10 MG PO HS Midodrine (Midodrine HCl) 2.5 Mg Tab 2.5 MG PO TID b/p 130-160 call cardiology Nystatin (Topical) (Nystop) 100,000 Unit/Gm Pow 1 APPLN TOP TID Potassium Ext Rel (Klor-Con) 20 Meq Tabcr 20 MEQ PO DAILY, TAB Prednisone Tab (Prednisone) 10 Mg Tab 40 MG PO DAILY, TAB Probiotic Product (Probiotic) 1 Tab Tab 1 TAB PO DAILY Riboflavin (Riboflavin) 400 Mg Tab 400 MG PO QAM Simvastatin (Zocor) 20 Mg Tab 20 MG PO HS, TAB Sucralfate (Carafate) 1 Gm/10 Ml Susp 10 ML PO QID for 30 Days, #1200 ML 3 Refills Tiotropium [place] (Spiriva Handihaler) 30 Puff/540 Mcg Aerp 2 PUFFS INH DAILY, CAP Tramadol (Ultram) 50 Mg Tab 50 MG PO QID Discharge Exam Mrs. Philip feels much the same as the previous day. No change in her difficulty breathing. Becomes short of breath with small movements. Still complaining of left "hip" pain which extends from her hip down to her knee. All systems reviewed and otherwise negative Physical Exam: General Appearance: no apparent distress, + obese Respiratory/Chest: no respiratory distress, no accessory muscle use, + decreased breath sounds (bilaterally, poor respiratory effort, equal bilaterally ) Cardiovascular: regular rate, rhythm, no murmur, normal peripheral pulses ( radial bilaterally) Abdomen / GI: normal bowel sounds, non tender, soft Extremities: normal capillary refill, + pertinent finding (painful hamstrings bilaterally especially on exertion to medial knee, knee joint itself non painful and no effusion noted, no pain on hip rotation) Neurologic/Psychiatric: alert, oriented x 3 Hospital Course Mrs Philip was admitted to [facility] from to 29 December 2017 for shortness of breath, fever (in ER), intermittent cough and vomiting episode. She was diagnosed with aspiration pneumonitis. She completed Augmentin which was continued as inpatient as previously prescribed 14 day course starting on 11 December. She was also treated with intermitted BiPAP. Her respiratory status improved. Unfortunately she developed watery diarrhea and was positive for clostridium difficile therefore is now being treated with a 10 day course of vancomycin. She was evaluated by her outpatient asset protection specialist by request of her daughter (Dr Kelly) for a very brief episode of nonsustained SVT lasting less than 10 beats. No specific treatment recommended at this time given her history of orthostatic hypotension. Recommended continuing current dose of midodrine for orthostatic hypotension. She was also evaluated by pulmonology by request of her daughter - recommend using BiPAP 12/6 even during her naps. She had chronic pain in her right thigh/leg. Had dopplers which were negative. To continue PT She is now being discharged home with home services by request (recommended she has further rehabilitation). Total Time Spent: Greater than 30 minutes This includes examination of the patient, discharge planning, medication reconciliation, and communication with other providers. Discharge Instructions Please refer to the electronic Patient Visit Report (Discharge Instructions) for additional information. Follow-Up She will follow up with her PCP Dr De Souza on 01 January 2018 She will follow up with pulmonology Jaun See on 16 Jan 2018 Additional Copies To Michael De Souza M.D.; Jaun See, PA-C Reviewed: Pt Seen/Exam by Me History overall feeling much better right thigh pain better Constitutional: denies: fever Respiratory: negative: short of breath Cardiovascular: denies chest pain General Appearance: no apparent distress (sitting in recliner) Respiratory: lungs clear, no respiratory distress Cardiovascular: regular rate, rhythm Neurologic/Psychiatric: alert, oriented x 3 Skin Characteristics: warm/dry Assessment/Plan Resident Physician Supervision Note: I independently interviewed and examined the patient and verified the alexander history and physical, reviewed labs and image studies, discussed the case with the resident Dr. Crook and agree with the findings and care plan. Time spent in discharge 35 min
== END 2017-12-29 16:18 | disposition home health service (06) | DRG 178 ==
LOC: C.EDC 11:58 → EDBD 11:58 → C.2T 22:53 → ENRESERV 22:58 → C.MS4W 12-25 16:11
PROVIDERS: ADMIT Hospitalist; ATTEND Family Medicine
DX: J69.0 Pneumonitis due to inhalation of food and vomit (principal); A04.72 Enterocolitis due to Clostridium difficile, not specified as recurrent; I47.2 Ventricular tachycardia; E66.2 Morbid (severe) obesity with alveolar hypoventilation; Z68.41 Body mass index [BMI] 40.0-44.9, adult; J96.10 Chronic respiratory failure, unspecified whether with hypoxia or hypercapnia; I95.1 Orthostatic hypotension; E86.0 Dehydration; M62.451 Contracture of muscle, right thigh; E11.9 Type 2 diabetes mellitus without complications; I10 Essential (primary) hypertension; J98.6 Disorders of diaphragm; J45.909 Unspecified asthma, uncomplicated; J44.9 Chronic obstructive pulmonary disease, unspecified; D64.9 Anemia, unspecified; E03.9 Hypothyroidism, unspecified; F32.9 Major depressive disorder, single episode, unspecified; E78.5 Hyperlipidemia, unspecified; G89.29 Other chronic pain; K21.9 Gastro-esophageal reflux disease without esophagitis; Z79.899 Other long term (current) drug therapy; Z79.01 Long term (current) use of anticoagulants; Z79.4 Long term (current) use of insulin; Z99.81 Dependence on supplemental oxygen; Z91.81 History of falling; Z86.718 Personal history of other venous thrombosis and embolism; Z86.711 Personal history of pulmonary embolism; Z88.7 Allergy status to serum and vaccine; Z88.1 Allergy status to other antibiotic agents; Z88.3 Allergy status to other anti-infective agents; Z91.048 Other nonmedicinal substance allergy status; Z88.8 Allergy status to other drugs, medicaments and biological substances; Z88.5 Allergy status to narcotic agent; Z83.3 Family history of diabetes mellitus; Z82.49 Family history of ischemic heart disease and other diseases of the circulatory system; Z84.1 Family history of disorders of kidney and ureter; Z80.3 Family history of malignant neoplasm of breast

== ENCOUNTER → 2018-01-08 | Outpatient (CLI) | payer OTHER ==
[~2018-01-08] MED LIST changes: -FLUC150T PO; -NITROGLYCERIN 2% OINTMENT 30GM TUBE EXT SCH; +PRED10TA PO; +RSPS5 PO; +SUCR5SUS PO; +VANC5CAP PO
[2018-01-08 17:23] LABS: BASO % 0.1 %; BASO ABS # 0.01 K/uL (0-0.2); EOS % 0.1 %; EOS ABS # 0.01 K/uL (0-0.5); HEMATOCRIT 38.4 % (37-47); HEMOGLOBIN 12.3 g/dL (12.0-16.0); LYMPH % 7.3 %; LYMPH ABS # 0.71 K/uL (1.2-3.4); MEAN CELL VOLUME 97.7 fL (80-100); MEAN CORPUSCULAR HEMOGLOBIN 31.3 pg (25-34); MEAN PLATELET VOLUME 10.8 fL (7.4-10.4); MONO % 3.5 %; MONO ABS # 0.34 K/uL (0.11-0.59); NEUT % 84.9 %; NEUT ABS # 8.21 K/uL (1.4-6.5); NUCLEATED RED BLOOD CELL ABS 0.02 K/uL (0-0); PLATELET COUNT 232 K/uL (130-400); RED CELL DISTRIBUTION WIDTH CV 16.2 % (11.5-14.5); RED CELL DISTRIBUTION WIDTH SD 58.2 fL (36.4-46.3); WHITE BLOOD COUNT 9.68 K/uL (4.8-10.8)
[2018-01-08 17:25] LABS: BLOOD UREA NITROGEN 24 mg/dl (7-18); CALCIUM 8.8 mg/dl (8.5-10.1); CARBON DIOXIDE 30 mmol/L (21-32); CREATININE 1.04 mg/dl (0.60-1.20); GLUCOSE 178 mg/dl (70-99); POTASSIUM 4.3 mmol/L (3.5-5.1); SODIUM 137 mmol/L (136-145)
== END | disposition home or self-care (01) ==
LOC: C.LABBFT 15:36
PROVIDERS: ATTEND Internal Medicine
DX: R05 Cough (principal); C73 Malignant neoplasm of thyroid gland

== ENCOUNTER → 2018-01-11 | Outpatient (CLI) | payer OTHER ==
--- NOTE | 2018-01-11 10:01 | DIAGNOSTIC IMAGING REPORT ---
RIGHT WRIST 4 VIEWS CLINICAL HISTORY: Right hand weakness. Wrist pain. FINDINGS: 4 views of the right wrist are obtained. No prior studies are available for comparison at the time of dictation. The skeletal structures are osteopenic. No fracture is seen. There is degenerative narrowing at the radiocarpal articulation. Mild osteoarthritic change is seen at the first carpometacarpal joint. The overlying soft tissues are normal in appearance. There is atherosclerotic calcification of the regional arteries. IMPRESSION: Osteopenia and mild arthritic change as above. No acute bony abnormality is identified. Electronically signed by: Justo Mejias M.D. 01/11/2018 10:00 AM Dictated Date/Time: 01/11/2018 9:58 AM
--- NOTE | 2018-01-11 10:03 | DIAGNOSTIC IMAGING REPORT ---
R HAND MIN 3 VIEWS ROUTINE CLINICAL HISTORY: RIGHT HAND WEAKNESS RIGHT HAND PAIN COMPARISON: None. DISCUSSION: The bones are mildly osteopenic. No acute fractures are visualized. There are moderately advanced erosive osteoarthritic changes involving the distal interphalangeal joints of the second through fifth fingers. IMPRESSION: 1. No acute fractures 2. Advanced erosive osteoarthritic changes involve the distal interphalangeal joints of the second through fifth fingers Electronically signed by: Edenilson Barrett M.D. 01/11/2018 10:01 AM Dictated Date/Time: 01/11/2018 10:00 AM
--- NOTE | 2018-01-11 10:07 | DIAGNOSTIC IMAGING REPORT ---
TWO VIEW CHEST CLINICAL HISTORY: Acute respiratory failure. FINDINGS: PA and lateral chest radiographs are compared to chest x-ray and chest CT dated 12/21/2017. The heart is top normal for projection and there is atherosclerotic calcification of the thoracic aorta. The pulmonary vasculature is noncongested. There is a small right pleural effusion and bibasilar atelectasis. Plate like atelectasis is seen in the lingula. There is no pneumothorax. The skeletal structures are osteopenic. Fusion hardware is noted in the lower cervical spine. Extensive fusion hardware is also seen at the thoracolumbar junction. There are bilateral shoulder arthroplasties. Surgical clips are noted in the upper abdomen. IMPRESSION: 1. There is a small right pleural effusion and bibasilar atelectasis. This is similar in appearance to 12/21/2017. 2. There is no evidence of superimposed airspace consolidation to suggest pneumonia.. Electronically signed by: Justo Mejias M.D. 01/11/2018 10:06 AM Dictated Date/Time: 01/11/2018 10:04 AM
== END | disposition home or self-care (01) ==
LOC: C.RAD 09:15
PROVIDERS: ATTEND Internal Medicine
DX: J96.00 Acute respiratory failure, unspecified whether with hypoxia or hypercapnia (principal); R29.898 Other symptoms and signs involving the musculoskeletal system; J90 Pleural effusion, not elsewhere classified; J98.11 Atelectasis; M85.831 Other specified disorders of bone density and structure, right forearm

== ENCOUNTER → 2018-01-16 | Outpatient (CLI) | payer OTHER | END | disposition home or self-care (01) | LOC: C.LAB1850 10:51 | PROVIDERS: ATTEND Physician Assistant | DX: E89.0 Postprocedural hypothyroidism (principal) ==

== ENCOUNTER → 2018-01-22 | Outpatient (CLI) | payer OTHER ==
--- NOTE | 2018-01-22 16:07 | DIAGNOSTIC IMAGING REPORT ---
SOFT TISSUE NECK WITHOUT CLINICAL HISTORY: THYROID CA TECHNIQUE: Transaxial acquisition with multi axial reformatted images COMPARISON STUDY: 12/14/2015 FINDINGS: Bony structures of the cervical column remains stable with evidence for an anterior and posterior cervical fusion and a central corpectomy. Hardware appears intact. The major salivary glands are unremarkable. The parotid and submandibular glands are uniform. No significant cervical adenopathy. Apparent prior thyroid resection. Minimal apical chronic pleural thickening and parenchymal scarring. IMPRESSION: 1. Chronic and postoperative change unaltered from the prior exam. 2. Prior thyroidectomy. 3. No current evidence for neoplastic change. The above report was generated using voice recognition software. It may contain grammatical, syntax or spelling errors. Electronically signed by: Vignesh Kim M.D. 01/22/2018 4:06 PM Dictated Date/Time: 01/22/2018 4:02 PM
== END | disposition home or self-care (01) ==
LOC: C.CTS 15:51
PROVIDERS: ATTEND Physician Assistant
DX: C73 Malignant neoplasm of thyroid gland (principal); E89.0 Postprocedural hypothyroidism

== ENCOUNTER → 2018-01-24 | Outpatient (CLI) | payer OTHER ==
[2018-01-24 15:12] LABS: BASO % 0.1 %; BASO ABS # 0.01 K/uL (0-0.2); EOS % 0.3 %; EOS ABS # 0.03 K/uL (0-0.5); HEMATOCRIT 39.8 % (37-47); HEMOGLOBIN 12.9 g/dL (12.0-16.0); IG# 0.34 K/uL (0.00-0.02); LYMPH ABS # 0.93 K/uL (1.2-3.4); MEAN CELL VOLUME 96.4 fL (80-100); MEAN CORPUSCULAR HEMOGLOBIN 31.2 pg (25-34); MEAN CORPUSCULAR HGB CONC 32.4 g/dl (32-36); MEAN PLATELET VOLUME 10.4 fL (7.4-10.4); MONO % 3.7 %; MONO ABS # 0.38 K/uL (0.11-0.59); NEUT % 83.6 %; PLATELET COUNT 179 K/uL (130-400); RED CELL DISTRIBUTION WIDTH SD 56.5 fL (36.4-46.3); WHITE BLOOD COUNT 10.29 K/uL (4.8-10.8)
[2018-01-24 15:26] LABS: INR 0.9 (0.9-1.1); PTT PATIENT 22.6 SECONDS (21.0-31.0)
[2018-01-24 15:45] LABS: ALBUMIN 3.4 gm/dl (3.4-5.0); ALT/SGPT 47 U/L (12-78); AST/SGOT 21 U/L (15-37); BLOOD UREA NITROGEN 24 mg/dl (7-18); CALCIUM 8.5 mg/dl (8.5-10.1); CARBON DIOXIDE 28 mmol/L (21-32); CREATININE 1.11 mg/dl (0.60-1.20); GLUCOSE 202 mg/dl (70-99); POTASSIUM 4.4 mmol/L (3.5-5.1); SODIUM 140 mmol/L (136-145)
[2018-01-24 15:48] LABS: ALKALINE PHOSPHATASE 69 U/L (45-117); TOTAL PROTEIN 6.8 gm/dl (6.4-8.2)
== END | disposition home or self-care (01) ==
LOC: C.LAB1850 14:41
PROVIDERS: ATTEND Physician Assistant
DX: R05 Cough (principal)

== ENCOUNTER → 2018-01-25 | Outpatient (CLI) | payer OTHER ==
[~2018-01-25] MED LIST changes: +AGMUDL4005 PO; +FERR1TAB23 PO; +FLUC150T PO; +IPRA1AER2 INH; +LCTXP PO; +NUTR-7 PO; +NYST80OI TOP; +POTA1CAP2 PO; +ROPI0.25 PO; +SPR25 PO; +TIOT1AER2 INH; +VANC1SUS PO
== END | disposition home or self-care (01) ==
LOC: C.LAB 13:21
PROVIDERS: ATTEND Physician Assistant
DX: R05 Cough (principal)

== ENCOUNTER 2018-02-05 06:24 | Day surgery (SDC) | payer OTHER ==
[~2018-02-05] VITALS: Ht 157.5 cm; Wt 90.0 kg
[~2018-02-05 06:24] MED LIST changes: -AGMUDL4005 PO; -FERR1TAB23 PO; -FLUC150T PO; -IPRA1AER2 INH; -LCTXP PO; -NUTR-7 PO; -NYST80OI TOP; -POTA1CAP2 PO; -ROPI0.25 PO; -SPR25 PO; -TIOT1AER2 INH; -VANC1SUS PO
--- NOTE | 2018-02-05 07:03 | History and Physical ---
History & Physical Date of Service February 05, 2018. History & Physical 83-year-old female here for bronchoscopic evaluation of chronic bronchiectasis and failure to respond to outpatient treatment. Patient has a PmHx: Significant for cardiac disease, pulmonary disease with chronic respiratory insufficiency and recurrent hospital admissions for pneumonia. PmHx: 1. Chronic bronchitis/COPD 2. Acute sinusitis, recurrence not specified, unspecified location 3. Nocturnal hypoxemia on trilogy device 4. Allergic rhinitis 5. Anemia 6. Anxiety 7. Aortic valve sclerosis 8. Asthma 9. Cellulitis of right upper arm (L03.113) 10. Chronic constipation 11. Chronic pain 12. Chronic steroid use 13. CKD (chronic kidney disease) 14. Clostridium difficile colitis 15. History of Concussion 16. Confusion 17. Cystocele, midline 18. Depression 19. Diabetes mellitus, type 2 20. Diarrhea (R19.7) 21. DVT (deep venous thrombosis) 22. Dysphagia 23. Fibromyalgia 24. Gastroesophageal reflux disease 25. Gastroparesis 26. Hyperlipidemia 27. Hypertension 28. Hypothyroidism, postablative 29. Insomnia 30. Internal hemorrhoids 31. Lumbar radiculopathy 32. Medullary carcinoma of thyroid 33. Methicillin resistant Staphylococcus aureus infection 34. Neuromuscular disease 35. Orthostatic hypotension 36. Osteoarthritis 37. Paroxysmal atrial tachycardia 38. Physical deconditioning 39. History of Pleural effusion 40. Post concussion syndrome 41. Prolapse of vaginal cano 42. Pulmonary embolism, bilateral 43. Restless legs syndrome 44. Rosacea 45. Sensorineural hearing loss of both ears 46. Shingles 47. Solitary pulmonary nodule 48. Traumatic compression fracture of T3 thoracic vertebra 49. Traumatic compression fracture of T4 thoracic vertebra 50. Tubular adenoma of colon 51. History of Ulcer of right leg 52. History of Urinary incontinence 53. Vitamin B12 deficiency 54. Vitamin D deficiency Surgical History 1. History of Adrenalectomy 2. History of Arthrodesis Cervical 3. History of Arthrodesis Lumbar 4. History of Biopsy Breast Open 5. History of Bronchoscopy (Diagnostic) 6. History of Hysterectomy 7. History of Knee Arthroplasty 8. History of Knee Arthroscopy With Medial Meniscus Repair 9. History of Neck Surgery 10. History of Nerve Block Transforaminal Epidural Lumbar L4 - L5 11. History of Neuroplasty Decompression Median Nerve At Carpal Tunnel 12. History of Shoulder Surgery 13. History of Surgery Diaphragm 14. History of Surgery Diaphragm Repair Plication 15. History of Thyroid Surgery Total Thyroidectomy 16. History of Tonsillectomy With Adenoidectomy 17. History of Vaginal Sling Operation For Stress Incontinence Family History 1. Family history of Breast Cancer 2. Denied: Family history of colon cancer (Z80.0) 3. Denied: Family history of ulcerative colitis 4. Denied: Family history of colon cancer (Z80.0) 5. Family history of kidney stones (Z84.1) 6. Denied: Family history of ulcerative colitis 7. Family history of Hypertension 8. Family history of Breast Cancer 9. Family history of Breast Cancer 10. Denied: Family history of Colon cancer 11. Denied: Family history of colonic polyps 12. 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 Saline 0.9 % Solution; USE ONE VIAL SALINE VIA NEBULIZER EVERY 3-4 HOURS NEEDED 2. Gentamicin in Saline 0.8-0.9 MG/ML-% Intravenous Solution; GENTAMYCIN 60MG IN 45 ML NASAL SOLUTION SI SPRAYS EACH NOSTRIL TID 3. Vitamin B-12 1000 MCG Oral Tablet; TAKE 1 TABLET DAILY DIRECTED; 4. LORazepam 0.5 MG Oral Tablet; TAKE ONE TABLETS AT BEDTIME NEEDED 5. Ipratropium-Albuterol 0.5-2.5 (3) MG/3ML Inhalation Solution; USE 1 UNIT DOSE IN NEBULIZER 4 TIMES DAILY 6. PredniSONE 5 MG Oral Tablet; patient currently on 42.5mg daily and is tapering down 7. PredniSONE 10 MG Oral Tablet; Currently 40 mg each day 8. Spiriva Respimat 1.25 MCG/ACT Inhalation Aerosol Solution; INHALE 2 PUFFS 9. TraMADol HCl - 50 MG Oral Tablet; 50mg po q 6hr prn pain; Last Rx:[id number] Ordered 10. Dificid 200 MG Oral Tablet; Take 1 tablet twice daily; 11. Vancomycin HCl - 125 MG Oral Capsule; TAKE 1 CAPSULE 4 TIMES DAILY; 12. Mucinex 600 MG Oral Tablet Extended Release 12 Hour; 1200mg po bid prn; 13. Basaglar KwikPen 100 UNIT/ML Subcutaneous Solution Pen-injector; Inject 22 units at bedtime 14. BD Pen Needle Marcia U/F 32G X 4 MM; Inject with new pen needle for 2x a day; 15. NovoLOG FlexPen 100 UNIT/ML Subcutaneous Solution Pen-injector; use sliding scale 16. Eliquis 5 MG Oral Tablet; Take 1 tablet twice daily 17. Potassium Chloride ER 10 MEQ Oral Capsule Extended Release; TAKE 2 CAPSULE Daily 18. Nystatin [id number] UNIT/GM External Powder; APPLY TO AFFECTED AREA 3 TIMES DAILY 19. Dexilant 60 MG Oral Capsule Delayed Release; TAKE 1 CAPSULE Daily; 20. Gabapentin 300 MG Oral Capsule; TAKE 1 CAP TWO TIMES DAILY; 21. Carafate 1 GM/10ML Oral Suspension; TAKE 10 ML 4 TIMES DAILY; 22. Riboflavin 400 MG Oral Tablet; Take 1 tablet daily; 23. Probiotic Oral Capsule 24. Simvastatin 20 MG Oral Tablet; TAKE 1 TABLET AT BEDTIME; 25. Spironolactone 25 MG Oral Tablet; one tablet twice daily; 26. Potassium Chloride ER 10 MEQ Oral Capsule Extended Release; take 2 capsules by mouth twice a day 27. Calcitriol 0.25 MCG Oral Capsule; Take 0.25 mcg once daily with Calcium; 28. Calcium Carbonate 1250 (500 Ca) MG Oral Tablet; TAKE 2 TABLET DAILY 29. Levothyroxine Sodium 100 MCG Oral Tablet; 100 mcg daily; 30. Melatonin 10 MG Oral Tablet; TAKE 1 TABLET AT BEDTIME; 31. Diclofenac Sodium 1 % Transdermal Gel; Apply 2 grams four times per day. 32. Tylenol Arthritis Pain 650 MG TBCR; TAKE 1 TABLET EVERY 4 HOURS NEEDED FOR PAIN 33. Midodrine HCl - 2.5 MG Oral Tablet; TAKE 1 TABLET 3 times daily for BP 130- 160; 34. ROPINIRole HCl - 0.5 MG Oral Tablet; TAKE ONE TABLET TWO HOURS BEFORE BEDTIME 35. Wtijqfaquy-FPMB-Uhornzzj 50-325-40 MG Oral Tablet; TAKE 1 TABLET Every 4 hours PRN 36. Citalopram Hydrobromide 20 MG Oral Tablet; take 1 and 1/2 tablet daily; 37. Iron 325 (65 Fe) MG Oral Tablet; Take 1 tablet daily; 38. Linzess 290 MCG Oral Capsule; Take 1 tablet daily; 39. Vitamin D 1000 UNIT Oral Tablet; TAKE 1 TABLET DAILY; Allergies 1. Pyridium TABS 2. Aspirin TABS 3. Bactericin OINT 4. DilTIAZem HCl TABS 5. Erythromycin Derivatives 6. Metoclopramide HCl TABS 7. Metrogel GEL 8. Morphine Derivatives 9. Pneumovax 23 INJ 10. Reglan TABS 11. Sulfa Drugs 12. Tetracyclines 13. Adhesive Tape Immunizations Influenza --- Series1: 03-Jun-2011; Series2: 02-Jul-2012; Series3: 27-May-2014; Series4: 10-Jul-2015; Series5: 08-Jun-2017 Tdap --- Series1: 04-Jul-2012 Vital Signs Blood Pressure: 128 / 84, RUE, Sitting Heart Rate: 99 O2 Saturation: 97, Nasal Cannula FiO2: 4L/min, Nasal Cannula Respiration: 20 Constitutional General appearance: No acute distress, well appearing and well nourished. Well- nourished, well-developed white female. No acute distress. She is alert and oriented x3. Mood is good. Affect is good. Eyes Conjunctiva and lids: No swelling, erythema or discharge. Pupils and irises: Equal, round and reactive to light. Ears, Nose, Mouth, and Throat External inspection of ears and nose: Normal. Oropharynx: Normal with no erythema, edema, exudate or lesions. Pulmonary Respiratory effort: No increased work of breathing or signs of respiratory distress. Auscultation of lungs: Abnormal. For the most part, patient is clear. There are few bibasilar rales. No wheeze or rhonchi at this time. Good air movement throughout. Cardiovascular Palpation of heart: Normal PMI, no thrills. Auscultation of heart: Normal rate and rhythm, normal S1 and S2, without murmurs. Examination of extremities for edema and/or varicosities: Normal. Abdomen Abdomen: Abnormal. Abdomen slightly distended. Bowel sounds present. No guarding, rigidity, or organomegaly. Liver and spleen: No hepatomegaly or splenomegaly. Lymphatic Palpation of lymph nodes in neck: No lymphadenopathy. Skin Skin and subcutaneous tissue: Normal without rashes or lesions. Neurologic Cranial nerves: Cranial nerves 2-12 intact. Reflexes: 2+ and symmetric. Sensation: No sensory loss. Psychiatric Orientation to person, place, and time: Normal. Mood and affect: Normal.
[2018-02-05] MEDS ORDERED: SPIR25TA PO (07:05)
[2018-02-05 07:07] VITALS: BP 151/98; PULSE 100; TEMP 37; O2SAT 99; Ht 157.5 cm; Wt 90.0 kg
--- NOTE | 2018-02-05 08:15 | DIAGNOSTIC IMAGING REPORT ---
CHEST ONE VIEW PORTABLE CLINICAL HISTORY: 83 years-old Female presenting with Cough, SOB Pre bronchoscopy [facility] 1. TECHNIQUE: Portable upright AP view of the chest was obtained. COMPARISON: 01/11/2018. FINDINGS: Atherosclerosis of the aortic arch. Cardiac silhouette normal in size. Mildly low lung volumes. Increased bibasilar bandlike opacities. Elevation of the bilateral hemidiaphragms. No other focal opacity. Trace bilateral pleural effusions are difficult to exclude. No large pneumothorax. Bilateral shoulder arthroplasties, anterior and posterior cervical fusion, and posterior thoracolumbar fusion hardware noted. Surgical clips project over the right paraspinal region in the mid abdomen. IMPRESSION: 1. Low lung volumes with increased hypoventilatory changes including bibasilar atelectasis. Electronically signed by: Jorge Villafana M.D. 02/05/2018 8:14 AM Dictated Date/Time: 02/05/2018 8:12 AM
--- NOTE | 2018-02-05 08:32 | Discharge Instructions ---
Discharge Instructions Date of Service February 05, 2018. Admission Reason for Admission: Chronic Cough, Shortness Of Breath Discharge Discharge Diagnosis / Problem: Chronic respiratory insufficiency Discharge Goals Goal(s): Diagnostic testing Activity Recommendations Activity Limitations: resume your previous activity Exercise/Sports Limitations: as tolerated . Instructions / Follow-Up Instructions / Follow-Up Patient is to follow-up with the [facility] provider Jalen See, Chad Khalil are Rodrigo Matthew. Current Hospital Diet Patient's current hospital diet: Discharge Diet Recommended Diet: Regular Diet Procedures Procedures Performed: No procedure performed today Pending Studies Studies pending at discharge: no Medical Emergencies . Who to Call and When: Medical Emergencies: If at any time you feel your situation is an emergency, please call 911 immediately. . Non-Emergent Contact Non-Emergency issues call your: Sports Information Director Call Non-Emergent contact if: you have a fever, temperature is above 101.5 . . "Provider Documentation" section prepared by Chad Khalil. . Retirement Assistant Recommendations Retirement Assistant Recommendations: During my evaluation of this patient I did not hear any rhonchi in the lower and /or upper airways. Along with this I did order a bedside/portable CXR with no signs of infiltrative pattern within the thorax. Due to this I discontinued the bronchoscopy procedure. I have spoken to provider Jalen See as well as Dr. Bradford Matthew. At this time I believe the pulmonary team needs to discuss the possibility of tracheostomy and mechanical ventilation intermittently with this patient.
== END 2018-02-05 08:45 | disposition home or self-care (01) ==
LOC: C.ACU 06:24
PROVIDERS: ATTEND Internal Medicine Critical Care Medicine
DX: R05 Cough (principal); R06.02 Shortness of breath; Z53.9 Procedure and treatment not carried out, unspecified reason

== ENCOUNTER 2018-03-15 14:14 | Inpatient (IN) | payer OTHER ==
[~2018-03-15] VITALS: Ht 157.5 cm; Wt 85.9 kg
[~2018-03-15 14:14] MED LIST changes: -CALC12504 PO; -CALC1CAP36 PO; -CHOL2000 PO; +CHOLTAB9 PO; -CITA20TA4 PO; +CYAN1CAP3 PO; -CYAN500T PO; -DEXL60CA4 PO; -DICL1GEL12 TOP; -GABA-113 PO; +GENT60IN4 NAE; -HYDR-4079 PO; -INSDGIPEN SC; +INSU100I23 SQ; -IPRASOL4 INH; -LINA1CAP2 PO; -LORA-741 PO; -MELA1TAB48 PO; +METHYLPREDNISOLONE IV 40 MG in SYRINGE 0 ML IV SCH; -NVLGI/PEN SQ; -NYST100010 TOP; -POTA-639 PO; +POTA10TA PO; -RSPS5 PO; +SPIR25TA PO; -VANC5CAP PO
[2018-03-15] MEDS ORDERED: LINA1CAP2 PO (14:18)
[2018-03-15] MEDS ORDERED: ALBUT/IPRATROP 3MG/0.5MG NEB 3 ML VIAL INH STA (14:25)
[2018-03-15 14:39] LABS: BASO % 0.1 %; BASO ABS # 0.01 K/uL (0-0.2); EOS % 0.3 %; EOS ABS # 0.03 K/uL (0-0.5); HEMOGLOBIN 12.3 g/dL (12.0-16.0); IG# 0.24 K/uL (0.00-0.02); LYMPH % 11.7 %; LYMPH ABS # 1.21 K/uL (1.2-3.4); MEAN CELL VOLUME 97.3 fL (80-100); MEAN CORPUSCULAR HEMOGLOBIN 30.7 pg (25-34); MEAN CORPUSCULAR HGB CONC 31.5 g/dl (32-36); MEAN PLATELET VOLUME 10.7 fL (7.4-10.4); MONO % 5.1 %; MONO ABS # 0.53 K/uL (0.11-0.59); NEUT % 80.5 %; PLATELET COUNT 177 K/uL (130-400); RED CELL DISTRIBUTION WIDTH CV 16.6 % (11.5-14.5); WHITE BLOOD COUNT 10.32 K/uL (4.8-10.8)
[2018-03-15 14:45] LABS: INR 0.9 (0.9-1.1)
[2018-03-15 15:00] LABS: ALBUMIN 2.9 gm/dl (3.4-5.0); ALKALINE PHOSPHATASE 60 U/L (45-117); ALT/SGPT 38 U/L (12-78); AST/SGOT 16 U/L (15-37); BLOOD UREA NITROGEN 21 mg/dl (7-18); CALCIUM 7.9 mg/dl (8.5-10.1); CARBON DIOXIDE 27 mmol/L (21-32); CREATININE 1.12 mg/dl (0.60-1.20); GLUCOSE 208 mg/dl (70-99); LIPASE 149 U/L (73-393); POTASSIUM 3.7 mmol/L (3.5-5.1); SODIUM 140 mmol/L (136-145)
--- NOTE | 2018-03-15 15:05 | DIAGNOSTIC IMAGING REPORT ---
CHEST ONE VIEW PORTABLE HISTORY: 83 years-old Female Evaluate Fever/Sepsis acute fever and sepsis COMPARISON: Chest radiograph 02/05/2018 TECHNIQUE: Portable AP view of the chest FINDINGS: Cardiac silhouette is again enlarged. Atherosclerosis of the aorta. Mild right hemidiaphragmatic elevation. Small bilateral pleural effusions with subsegmental linear bibasilar and lateral left midlung opacities. No overt pulmonary edema or pneumothorax. Bilateral shoulder arthroplasties. Spinal fusion changes of the thoracolumbar spine and cervical spine are partially imaged. Surgical clips project over the abdominal right upper quadrant. IMPRESSION: 1. Cardiomegaly without overt pulmonary edema. 2. Small bilateral pleural effusions with subsegmental bibasilar and lateral left midlung opacities suggesting atelectasis. The above report was generated using voice recognition software. It may contain grammatical, syntax or spelling errors. Electronically signed by: Rey Campos M.D. 03/15/2018 3:04 PM Dictated Date/Time: 03/15/2018 3:01 PM
[2018-03-15] MEDS ORDERED: MELA1TAB48 PO (15:08)
[2018-03-15] MEDS ORDERED: LORA-741 PO (15:31)
[2018-03-15] MEDS ORDERED: BUTACAP7 PO (15:41)
[2018-03-15] MEDS ORDERED: ROPI0.5T PO (15:41)
[2018-03-15] MEDS ORDERED: TIOT1AER2 INH (15:41)
[2018-03-15] MEDS ORDERED: POLY1SOL6 OP (15:41)
[2018-03-15] MEDS ORDERED: GUAI1TAB55 PO (15:41)
[2018-03-15] MEDS ORDERED: CRFL PO (15:41)
[2018-03-15] MEDS ORDERED: CALC12504 PO (15:55)
[2018-03-15] MEDS ORDERED: CITA20TA4 PO (16:34)
[2018-03-15] MEDS ORDERED: GABA-113 PO (16:35)
[2018-03-15] MEDS ORDERED: SODIUM CHLORIDE 0.9% 500ML 500 ML IV STA (16:45)
[2018-03-15] MEDS ORDERED: METHYLPREDNISOLONE 125 MG VIAL IV STA (16:45)
[2018-03-15] MEDS ORDERED: ALBUT/IPRATROP 3MG/0.5MG NEB 3 ML VIAL INH ONE (16:45)
[2018-03-15] MEDS ORDERED: ACETAMINOPHEN IV 100 ML IV STA (16:45)
[2018-03-15] MEDS ORDERED: LORAZEPAM 0.5 MG TAB PO STA (16:45)
[2018-03-15] MEDS ORDERED: MAGNESIUM SULFATE 1GM / D5W 1 GM BAG IV STA (16:45)
[2018-03-15] MEDS ORDERED: OPTIRAY 320 IV PRN (17:00)
[2018-03-15] MEDS ORDERED: IPRA-64 INH (17:28)
--- NOTE | 2018-03-15 17:35 | DIAGNOSTIC IMAGING REPORT ---
CT OF THE ABDOMEN AND PELVIS WITH CONTRAST CLINICAL HISTORY: Generalized abdominal pain, hematuria. COMPARISON STUDY: CT of the abdomen and pelvis October 02, 2017. TECHNIQUE: Following IV administration of 120 mL of Optiray-320, axial images of the abdomen and pelvis were obtained from the lung bases to the proximal femurs. Images were reviewed in the axial, sagittal, and coronal planes. IV contrast was administered without complication. A dose lowering technique was utilized adhering to the principles of ALARA. FINDINGS: The chest will be reported separately. There is a trace right pleural effusion. Postoperative findings within the spine are noted. There is no biliary or pancreatic ductal dilatation. No hepatic lesions are present. The spleen, adrenal glands and kidneys are unremarkable. Is no hydronephrosis. No pneumatosis, free air or portal venous gas is present. There is no evidence for a bowel obstruction. Caliber and wall thickness of small and large bowel are normal. The appendix is not visualized but there is no right lower quadrant inflammation. Note is made of a 2.7 cm subcutaneous density of the right lower quadrant which may reflect a medication injection sites/tiny hematoma. No acute pelvic or lumbar spine fracture is noted. Old right-sided rib fractures are noted. There is no lymphadenopathy. Sensitivity for detection of urothelial lesions is diminished given the lack of delayed phase imaging. There are no ureteral calculi. There is minimal bladder wall thickening. IMPRESSION: 1. No ureteral calculi or hydronephrosis. Minimal bladder wall thickening which could be correlated with urinalysis. 2. No bowel obstruction. 3. No definite acute process within the abdomen or pelvis. Electronically signed by: Jake Lo M.D. 03/15/2018 5:34 PM Dictated Date/Time: 03/15/2018 5:25 PM
--- NOTE | 2018-03-15 17:35 | DIAGNOSTIC IMAGING REPORT ---
CHEST CTA for PULMONARY ARTERIES CT DOSE: 1916.88 mGy.cm HISTORY: Atypical chest pain. TECHNIQUE: Multiaxial CT images of the chest were performed following the intravenous administration of contrast to evaluate the pulmonary arteries. Maximal intensity projection images were also obtained. A dose lowering technique was utilized adhering to the principles of ALARA. COMPARISON STUDY: Chest CT 12/21/2017. FINDINGS: Normal caliber thoracic aorta with no evidence for dissection. Small right pleural effusion persists. The heart remains mildly enlarged. Nondiagnostic evaluation of the bilateral lower lobe subsegmental and lingular subsegmental pulmonary arteries due to the motion artifact. The remaining pulmonary arteries show no filling defects to suggest pulmonary embolus. Cervical and thoracolumbar spinal fusion hardware is again noted. No mediastinal or hilar lymphadenopathy. Chronic mild compression deformities within the thoracic spine remain unchanged. No acute fractures within the visualized osseous structures. Multiple old, healed right-sided rib fractures. Bilateral total shoulder arthroplasties. Stable 3.5 mm nodule within the right lung apex on image 210. Bibasilar linear densities are nonspecific but favor subsegmental atelectasis. These are similar to the prior study. IMPRESSION: 1. No evidence for pulmonary embolus with limitations as described above. 2. Small right pleural effusion, unchanged. 3. Right basilar linear densities are also similar to the prior study. These favor subsegmental atelectasis. 4. A stable 3.5 mm nodule within the right lung apex. Electronically signed by: Jeff Maldonado M.D. 03/15/2018 5:34 PM Dictated Date/Time: 03/15/2018 5:25 PM
--- NOTE | 2018-03-15 17:49 | EMERGENCY ROOM VISIT NOTE ---
History Report prepared by Suzanna: aMribeth Moore Under the Supervision of: Dr. Tono Guerrero M.D. First contact with patient: 14:17 Chief Complaint: CHEST PAIN Stated Complaint: CHEST PAIN History of Present Illness The patient is an 83 year old female who presents to the Emergency Room with complaints of worsening chest pain starting this morning. The patient states that the pain is a sharp pain and she currently rates it as 10/10 in severity. She reports that the pain radiates into her back and is worse with breathing. The patient complains of pain everywhere. The patient's daughter notes that the patient had a burning chest pain a week ago, but it eased up so he thought nothing of it. She notes that the patient has been more drowsy than usual lately. The patient denies fever, chills, nausea, vomiting, and diarrhea. The patient;'s daughter notes that the patient is to have a trach placed next Monday because there is stiff stuck in her trachea that they cannot get out with a bronchoscopy. She notes that the patient is usually on O2. Source of History: patient, family Onset: this morning Position: chest Symptom Intensity: 10/10 Quality: sharp Timing: worsening Modifying Factors (Worsening): breathing Associated Symptoms: No fevers, No chills, No nausea, No vomiting, No diarrhea Note: The patient complains of pain everywhere. The patient's daughter complains of the patient being drowsy. Review of Systems See HPI for pertinent positives and negatives. A total of ten systems were reviewed and were otherwise negative. 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 (13) UMANA (dyspnea on exertion) (14) Dyspnea, unspecified (15) Gastroesophageal reflux disease (16) Metabolic encephalopathy (17) MRSA pneumonia (18) Sepsis (19) Syncope due to orthostatic hypotension Family History Diabetes mellitus FH: cancer FH: gallbladder disease FH: heart disease FH: lung disease Hypertension Kidney disease or stones Social History Smoking Status: Never Smoker Alcohol Use: none Drug Use: none Marital Status: Housing Status: lives with family Occupation Status: retired Current/Historical Medications Scheduled Apixaban (Eliquis), 5 MG PO BID Calcitriol (Calcitriol), 0.25 MCG PO DAILY Calcium Carbonate (Calcium Carbonate), 2,500 MG PO HS Cholecalciferol (D3-1000), 1,000 UNITS PO DAILY Citalopram Hydrobromide (Citalopram Hydrobromide), 30 MG PO DAILY Cyanocobalamin (B-12), 1,000 MCG PO QAM Dexlansoprazole (Dexilant), 60 MG PO QAM Ferrous Sulfate (Kp Ferrous Sulfate), 325 MG PO DAILY Gabapentin (Neurontin), 300 MG PO BID Gentamicin In Saline (Gentamicin Sulfate/0.9% S), 2 SPRAYS LATASHA TID Insulin Aspart (Novolog Flexpen), SQ QPM Insulin Glargine (Basaglar Kwikpen), 22 UNITS SQ QAM Ipratropium-Albuterol (Duoneb), 1 TREATMENT INH QID Levothyroxine Sodium (Levothyroxine Sodium), 100 MCG PO DAILY Melatonin (Melatonin), 10 MG PO HS Midodrine (Midodrine HCl), 2.5 MG PO TID Nystatin (Topical) (Nystop), 1 APPLN TOP TID Polyethylene Glycol-Propylene (Systane Ultra), 1 DROPS OP QID Potassium Chloride (K-Tabs), 20 MEQ PO DAILY Prednisone Tab (Prednisone), 40 MG PO DAILY Probiotic Product (Probiotic), 1 TAB PO DAILY Riboflavin (Riboflavin), 400 MG PO QAM Ropinirole Hydrochloride (Requip), 0.5 MG PO HS Simvastatin (Zocor), 20 MG PO HS Spironolactone (Aldactone), 25 MG PO BID Sucralfate (Carafate), 10 ML PO QID Tiotropium [place] (Spiriva Respimat), 2 PUFF INH BID Scheduled PRN Acetaminophen (Tylenol Arthritis Ext Rel), 650 MG PO Q4 PRN for Pain Fesjdfjuba-Dufkent-Pdfodljk (Butal/Asa/Caff), 1 CAP PO Q4 PRN for Headache Diclofenac Sodium (Topical) (Voltaren 1% Top Gel), 1 APPLN TOP QID PRN for Pain Guaifenesin Ext Rel (Mucinex Ext Rel), 1,200 MG PO Q12 PRN for congestion Linaclotide (Linzess), 290 MCG PO DAILY PRN for Lorazepam (Ativan), 0.25-0.5 MG PO Q6 PRN for Sleep Tramadol (Ultram), 50 MG PO Q6H PRN for Pain Allergies Coded Allergies: Adhesives (Verified Allergy, Severe, TAPE-REDNESS, BLISTERS, 02/21/18) Pneumococcal Vaccine (Verified Allergy, Severe, SHORTNESS OF BREATH, ) Metronidazole (Verified Allergy, Intermediate, skin rash, 02/21/18) allergic to generic form Phenazopyridine (Verified Allergy, Intermediate, abdominal pain/rash, ) Erythromycin (Verified Allergy, Mild, RASH, 02/21/18) Salicylates (Verified Allergy, Unknown, pt states rash with ASA 325 but not ASA 81mg, 02/21/18) Sulfa Antibiotics (Verified Allergy, Unknown, ON MED LIST, 02/21/18) Tetracycline (Verified Allergy, Unknown, RASH, 02/21/18) Morphine (Verified Adverse Reaction, Intermediate, urinary retention - oral morphine only, 02/21/18) Diltiazem (Verified Adverse Reaction, Mild, FLUID RETENTION, 02/21/18) Metoclopramide (Verified Adverse Reaction, Mild, TREMORS, 02/21/18) Bacitracin (Verified Adverse Reaction, Unknown, "MAKES IT WORSE"-OK IF NOT OTC MEDICATION, 02/21/18) OKAY IF NOT OVER THE COUNTER MEDICATION Physical Exam Vital Signs Date Time Temp Pulse Resp B/P (MAP) Pulse Ox O2 Delivery O2 Flow Rate FiO2 03/15/18 18:30 99 03/15/18 18:07 95 18 96 Nasal Cannula 5.0 03/15/18 18:01 96 24 133/74 96 Nasal Cannula 5.0 03/15/18 17:56 36.8 109 18 129/78 98 Nasal Cannula 5.0 03/15/18 16:00 97 18 158/82 96 Nasal Cannula 5.0 03/15/18 14:23 94 03/15/18 14:14 36.7 90 16 131/83 98 Nasal Cannula 5.0 03/15/18 14:14 98 Nasal Cannula 5.0 03/15/18 14:14 98 Nasal Cannula 5.0 Physical Exam GENERAL: Awake, alert, chronically ill-appearing, in no distress HENT: Normocephalic, atraumatic. Oropharynx unremarkable. Mucous membranes are dry. EYES: Normal conjunctiva. Sclera non-icteric. NECK: Supple. No nuchal rigidity. FROM. No JVD. RESPIRATORY: Diminished at base with scant intermittent wheezes. CARDIAC: Regular rate, normal rhythm. Extremities warm and well perfused. Pulses equal. ABDOMEN: Obese. Soft, non-distended. Generalized tenderness to palpation. No rebound or guarding. No masses. RECTAL: Deferred. MUSCULOSKELETAL: Chest examination reveals generalized tenderness throughout the anterior chest. The back is symmetrical on inspection without obvious abnormality. There is no CVA tenderness to palpation. No joint edema. LOWER EXTREMITIES: Calves are equal size bilaterally and non-tender. No edema. No discoloration. NEURO: Normal sensorium. No sensory or motor deficits noted. SKIN: No rash or jaundice noted. Medical Decision & Procedures ER Provider Diagnostic Interpretation: Radiology results as stated below per my review and radiologist interpretation: CHEST ONE VIEW PORTABLE HISTORY: 83 years-old Female Evaluate Fever/Sepsis acute fever and sepsis COMPARISON: Chest radiograph 02/05/2018 TECHNIQUE: Portable AP view of the chest FINDINGS: Cardiac silhouette is again enlarged. Atherosclerosis of the aorta. Mild right hemidiaphragmatic elevation. Small bilateral pleural effusions with subsegmental linear bibasilar and lateral left midlung opacities. No overt pulmonary edema or pneumothorax. Bilateral shoulder arthroplasties. Spinal fusion changes of the thoracolumbar spine and cervical spine are partially imaged. Surgical clips project over the abdominal right upper quadrant. IMPRESSION: 1. Cardiomegaly without overt pulmonary edema. 2. Small bilateral pleural effusions with subsegmental bibasilar and lateral left midlung opacities suggesting atelectasis. The above report was generated using voice recognition software. It may contain grammatical, syntax or spelling errors. Electronically signed by: Rey Campos M.D. 03/15/2018 3:04 PM Dictated Date/Time: 03/15/2018 3:01 PM CHEST CTA for PULMONARY ARTERIES CT DOSE: 1916.88 mGy.cm HISTORY: Atypical chest pain. TECHNIQUE: Multiaxial CT images of the chest were performed following the intravenous administration of contrast to evaluate the pulmonary arteries. Maximal intensity projection images were also obtained. A dose lowering technique was utilized adhering to the principles of ALARA. COMPARISON STUDY: Chest CT 12/21/2017. FINDINGS: Normal caliber thoracic aorta with no evidence for dissection. Small right pleural effusion persists. The heart remains mildly enlarged. Nondiagnostic evaluation of the bilateral lower lobe subsegmental and lingular subsegmental pulmonary arteries due to the motion artifact. The remaining pulmonary arteries show no filling defects to suggest pulmonary embolus. Cervical and thoracolumbar spinal fusion hardware is again noted. No mediastinal or hilar lymphadenopathy. Chronic mild compression deformities within the thoracic spine remain unchanged. No acute fractures within the visualized osseous structures. Multiple old, healed right-sided rib fractures. Bilateral total shoulder arthroplasties. Stable 3.5 mm nodule within the right lung apex on image 210. Bibasilar linear densities are nonspecific but favor subsegmental atelectasis. These are similar to the prior study. IMPRESSION: 1. No evidence for pulmonary embolus with limitations as described above. 2. Small right pleural effusion, unchanged. 3. Right basilar linear densities are also similar to the prior study. These favor subsegmental atelectasis. 4. A stable 3.5 mm nodule within the right lung apex. Electronically signed by: Jeff Maldonado M.D. 03/15/2018 5:34 PM Dictated Date/Time: 03/15/2018 5:[address] OF THE ABDOMEN AND PELVIS WITH CONTRAST CLINICAL HISTORY: Generalized abdominal pain, hematuria. COMPARISON STUDY: CT of the abdomen and pelvis October 02, 2017. TECHNIQUE: Following IV administration of 120 mL of Optiray-320, axial images of the abdomen and pelvis were obtained from the lung bases to the proximal femurs. Images were reviewed in the axial, sagittal, and coronal planes. IV contrast was administered without complication. A dose lowering technique was utilized adhering to the principles of ALARA. FINDINGS: The chest will be reported separately. There is a trace right pleural effusion. Postoperative findings within the spine are noted. There is no biliary or pancreatic ductal dilatation. No hepatic lesions are present. The spleen, adrenal glands and kidneys are unremarkable. Is no hydronephrosis. No pneumatosis, free air or portal venous gas is present. There is no evidence for a bowel obstruction. Caliber and wall thickness of small and large bowel are normal. The appendix is not visualized but there is no right lower quadrant inflammation. Note is made of a 2.7 cm subcutaneous density of the right lower quadrant which may reflect a medication injection sites/tiny hematoma. No acute pelvic or lumbar spine fracture is noted. Old right-sided rib fractures are noted. There is no lymphadenopathy. Sensitivity for detection of urothelial lesions is diminished given the lack of delayed phase imaging. There are no ureteral calculi. There is minimal bladder wall thickening. IMPRESSION: 1. No ureteral calculi or hydronephrosis. Minimal bladder wall thickening which could be correlated with urinalysis. 2. No bowel obstruction. 3. No definite acute process within the abdomen or pelvis. Electronically signed by: Jake Lo M.D. 03/15/2018 5:34 PM Dictated Date/Time: 03/15/2018 5:25 PM Laboratory Results 03/15/18 14:25 Red Blood Count 4.01, Mean Corpuscular Volume 97.3, Mean Corpuscular Hemoglobin 30.7, Mean Corpuscular Hemoglobin Concent 31.5, Mean Platelet Volume 10.7, Neutrophils (%) (Auto) 80.5, Lymphocytes (%) (Auto) 11.7, Monocytes (%) (Auto) 5.1, Eosinophils (%) (Auto) 0.3, Basophils (%) (Auto) 0.1, Neutrophils # (Auto) 8.30, Lymphocytes # (Auto) 1.21, Monocytes # (Auto) 0.53, Eosinophils # (Auto) 0.03, Basophils # (Auto) 0.01 03/15/18 14:25 Test 03/15/18 14:25 03/15/18 14:47 03/15/18 15:10 White Blood Count 10.32 K/uL (4.8-10.8) Red Blood Count 4.01 M/uL (4.2-5.4) Hemoglobin 12.3 g/dL (12.0-16.0) Hematocrit 39.0 % (37-47) Mean Corpuscular Volume 97.3 fL (80-100) Mean Corpuscular Hemoglobin 30.7 pg (25-34) Mean Corpuscular Hemoglobin Concent 31.5 g/dl (32-36) Platelet Count 177 K/uL (130-400) Mean Platelet Volume 10.7 fL (7.4-10.4) Neutrophils (%) (Auto) 80.5 % Lymphocytes (%) (Auto) 11.7 % Monocytes (%) (Auto) 5.1 % Eosinophils (%) (Auto) 0.3 % Basophils (%) (Auto) 0.1 % Neutrophils # (Auto) 8.30 K/uL (1.4-6.5) Lymphocytes # (Auto) 1.21 K/uL (1.2-3.4) Monocytes # (Auto) 0.53 K/uL (0.11-0.59) Eosinophils # (Auto) 0.03 K/uL (0-0.5) Basophils # (Auto) 0.01 K/uL (0-0.2) RDW Standard Deviation 59.0 fL (36.4-46.3) RDW Coefficient of Variation 16.6 % (11.5-14.5) Immature Granulocyte % (Auto) 2.3 % Immature Granulocyte # (Auto) 0.24 K/uL (0.00-0.02) Prothrombin Time 9.9 SECONDS (9.0-12.0) Prothromb Time International Ratio 0.9 (0.9-1.1) Anion Gap 9.0 mmol/L (3-11) Est Creatinine Clear Calc Drug Dose 41.1 ml/min Estimated GFR () 53.4 Estimated GFR (Non- 46.0 BUN/Creatinine Ratio 18.5 (10-20) Calcium Level 7.9 mg/dl (8.5-10.1) Magnesium Level 1.8 mg/dl (1.8-2.4) Total Bilirubin 0.5 mg/dl (0.2-1) Direct Bilirubin < 0.1 mg/dl (0-0.2) Aspartate Amino Transf (AST/SGOT) 16 U/L (15-37) Alanine Aminotransferase (ALT/SGPT) 38 U/L (12-78) Alkaline Phosphatase 60 U/L (45-117) Total Creatine Kinase 35 U/L (26-192) Troponin I < 0.015 ng/ml (0-0.045) Pro-B-Type Natriuretic Peptide 140 pg/ml (0-1800) Total Protein 6.0 gm/dl (6.4-8.2) Albumin 2.9 gm/dl (3.4-5.0) Lipase 149 U/L (73-393) Venous Blood pH 7.44 (7.36-7.41) Venous Blood Partial Pressure CO2 44 mmHg (38.0-50.0) Venous Blood Partial Pressure O2 47 mmHg Venous Blood HCO3 29 mmol/L Venous Blood Oxygen Saturation 81.4 % Venous Blood Base Excess 4.2 mEq/L Urine Color DK YELLOW Urine Appearance CLOUDY (CLEAR) Urine pH 5.0 (4.5-7.5) Urine Specific [place] 1.031 (1.000-1.030) Urine Protein NEG (NEG) Urine Glucose (UA) 1+ (NEG) Urine Ketones TRACE (NEG) Urine Occult Blood NEG (NEG) Urine Nitrite NEG (NEG) Urine Bilirubin NEG (NEG) Urine Urobilinogen NEG (NEG) Urine Leukocyte Esterase NEG (NEG) Urine WBC (Auto) 1-5 /hpf (0-5) Urine RBC (Auto) 5-10 /hpf (0-4) Urine Hyaline Casts (Auto) 5-10 /lpf (0-5) Urine Epithelial Cells (Auto) >30 /lpf (0-5) Urine Bacteria (Auto) NEG (NEG) Urine Pathogenic Casts /lpf (0) Laboratory results reviewed by me Medications Administered Medications (Trade) Dose Ordered Sig/Natasha Route Start Time Stop Time Status Last Admin Dose Admin Albuterol/ Ipratropium (Duoneb) 3 ml NOW STAT INH 03/15/18 14:25 03/15/18 14:30 DC 03/15/18 14:45 3 ML Sodium Chloride 500 ml @ 999 mls/hr Q31M STAT IV 03/15/18 16:45 03/15/18 17:15 DC 03/15/18 17:51 999 MLS/HR Methylprednisolone Sodium Succinate (Solu-Medrol IV) 125 mg NOW STAT IV 03/15/18 16:45 03/15/18 16:50 DC 03/15/18 17:52 125 MG Magnesium Sulfate (Magnesium Sulfate 1gm / D5W) 2 gm NOW STAT IV 03/15/18 16:45 03/15/18 16:50 DC 03/15/18 17:51 2 GM Albuterol/ Ipratropium (Duoneb) 12 ml ONE ONCE INH 03/15/18 16:45 03/15/18 16:50 DC 03/15/18 18:07 12 ML Acetaminophen 100 ml @ 400 mls/hr NOW STAT IV 03/15/18 16:45 03/15/18 16:59 DC 6/28/18 17:51 400 MLS/HR ECG Per My Interpretation Indication: chest pain Rate (beats per minute): 95 Rhythm: sinus rhythm Findings: PAC, no acute ischemic change, other (normal axis) ED Course 1420: The patient was evaluated in room C3. A complete history and physical exam was performed. 1632: I reevaluated the patient and updated her and her family. They verbally understand and agree with the treatment plan. 1651: I discussed the patient with Dr. Sean ERNST Hospitalist. She will evaluate the patient for further treatment. Medical Decision I reviewed the patient's past medical history, medications, and the nursing notes as described above. Differential diagnosis: Etiologies such as cardiac ischemia, aortic dissection, pulmonary embolism, pneumonia, pneumothorax, musculoskeletal, infections, pericarditis, myocarditis , esophageal rupture, gastrointestinal, as well as others were entertained. The patient is a 83-year-old woman with a past medical history of obesity hypoventilation syndrome chronic respiratory insufficiency setting of bronchiectasis, type 2 diabetes presents emergency department from home with generalized chest pain and abdominal pain that began today per hpi. On arrival the patient is chronically ill-appearing but in no acute distress, afebrile stable vital signs. On exam the patient has generalized reducible tenderness throughout her anterior chest wall and abdomen. Patient has scattered intermittent wheezes on lung exam. EKG without evidence of acute ischemia. WBC within normal limits. Troponin and BNP negative. Chemistry without evidence of acidosis. Patient still feeling generalized pain and shortness of breath after neb. Will treat for COPD exacerbation with steroids and nebs. CT- PE and abdomen pelvis ordered and pending to evaluate the patient's multiple pain complaints in the setting of her history of chronic illness. Case discussed with KLEVER Geiger hospitalist, who will evaluate the patient for admission. Medication Reconcilliation Current Medication List: was personally reviewed by me Blood Pressure Screening Patient's blood pressure: Normal blood pressure Will be further monitored by the hospitalist. Consults Time Called: 1636 Consulting Physician: Dr. Sean ERNST Hospitalist Returned Call: [phone] I discussed the patient with Dr. Sean ERNST Hospitalist. She will evaluate the patient for further treatment. Impression Primary Impression: COPD exacerbation Scribe Attestation The scribe's documentation has been prepared under my direction and personally reviewed by me in its entirety. I confirm that the note above accurately reflects all work, treatment, procedures, and medical decision making performed by me. Departure Information Dispostion Being Evaluated By Hospitalist Referrals Michael De Souza M.D. (PCP) Patient Instructions [facility]
[2018-03-15 17:56] VITALS: BP 129/78; PULSE 109; TEMP 36.8; O2SAT 98; BMI 38.9
[2018-03-15 18:07] VITALS: PULSE 95; O2SAT 96
[2018-03-15] MEDS ORDERED: ALBUTEROL 0.083% NEBU SOLN 3 ML VIAL INH PRN (18:30)
[2018-03-15] MEDS ORDERED: MAGNESIUM HYDROXIDE SUSP 30 ML UDC PO PRN (18:30)
[2018-03-15] MEDS ORDERED: ONDANSETRON INJ 2 MG/ML 2 ML VIAL IV PRN (18:30)
[2018-03-15] MEDS ORDERED: ALUMINUM/MAGNESIUM/SIMETH (MAALOX MAX) 30 ML UDC PO PRN (18:30)
--- NOTE | 2018-03-15 18:52 | History and Physical ---
History & Physical Date & Time of Service: Mar 15, 2018 at 18:51 Chief Complaint: Chest Pain Primary Care Physician: Michael De Souza M.D. History of Present Illness Source: patient Ms. Philip is an 83 y/o female with PMHx of Chronic Respiratory Failure 2/2 COPD, H/O DVTs, Hypothyroidism, T2DM, CKD Stage II/III, Diastolic CHF, and Elevated R Hemidiaphragm S/P Plication who presents to the ED c/o R sided CP. Patient reports she developed a sudden on set of R sided CP this AM that is sharp in nature with radiation into the back. She states the pain is worse on breathing and movement. She is significantly tender to just touching the skin and moving her breast to exam. She reports this is the pain she is experiencing when I examined the skin. She has some mild erythema under the breast fold with a strong odor. No vesicles or lesions suggesting shingles. States she had shingles previously around the eye. She states she has felt at baseline otherwise. She reports no cough or worsening of her breathing. She is wheezing on examination. She was seen by Jaun See PA-C on 03/13 and was saturating well on 4L NC. Currently she is at 5 L NC. She denies fever or chills. Daughter reports approx. one week ago she had burning chest pain but this resolved on its own. She has noted her mother to be more lethargic then baseline. Patient is A&O but mostly keeps eyes closed but is non-toxic appearing. She is due to have tracheostomy placed in coming week by Dr. Alfaro due to issues with secretion clearance. She has an extensive pulmonary history including MRSA pneumonia, candidal growth, and bordetella bronchiseptica. CTA without PE but some limitations due to motion and otherwise stable findings. CT Abd with minimal bladder wall thickening with UA not suggestive of UTI. She is dry on examination. Afebrile and without leukocytosis. Lactic acid at 3.4 with repeat of 4.1. She denies recent illness, diarrhea, melena/hematochezia. Past Medical/Surgical History 1. Chronic Respiratory Failure 2/2 COPD 2. Elevated R Hemidiaphragm S/P Plication 3. H/O DVTs 4. Hypothyroidism 5. T2DM 6. CKD Stage II/III 7. Diastolic CHF 8. GERD 9. S/P Appendectomy 10. MRSA PNA and Bordetella Bronchiseptica PNA Family History Diabetes mellitus FH: cancer FH: gallbladder disease FH: heart disease FH: lung disease Hypertension Kidney disease or stones Social History Smoking Status: Never Smoker Drug Use: none Marital Status: Housing status: lives with family Occupational Status: retired Immunizations History of Influenza Vaccine: N/A Influenza Vaccine Date: Jun 18, 2012 History of Tetanus Vaccine?: Yes Tetanus Immunization Date: Mar 18, 2004 History of Pneumococcal: Yes Pneumococcal Date: May 31, 2010 History of Hepatitis B Vaccine: No Allergies Coded Allergies: Adhesives (Verified Allergy, Severe, TAPE-REDNESS, BLISTERS, 02/21/18) Pneumococcal Vaccine (Verified Allergy, Severe, SHORTNESS OF BREATH, ) Metronidazole (Verified Allergy, Intermediate, skin rash, 02/21/18) allergic to generic form Phenazopyridine (Verified Allergy, Intermediate, abdominal pain/rash, ) Erythromycin (Verified Allergy, Mild, RASH, 02/21/18) Salicylates (Verified Allergy, Unknown, pt states rash with ASA 325 but not ASA 81mg, 02/21/18) Sulfa Antibiotics (Verified Allergy, Unknown, ON MED LIST, 02/21/18) Tetracycline (Verified Allergy, Unknown, RASH, 02/21/18) Morphine (Verified Adverse Reaction, Intermediate, urinary retention - oral morphine only, 02/21/18) Diltiazem (Verified Adverse Reaction, Mild, FLUID RETENTION, 02/21/18) Metoclopramide (Verified Adverse Reaction, Mild, TREMORS, 02/21/18) Bacitracin (Verified Adverse Reaction, Unknown, "MAKES IT WORSE"-OK IF NOT OTC MEDICATION, 02/21/18) OKAY IF NOT OVER THE COUNTER MEDICATION Home Medications Scheduled Apixaban (Eliquis), 5 MG PO BID Calcitriol (Calcitriol), 0.25 MCG PO DAILY Calcium Carbonate (Calcium Carbonate), 2,500 MG PO HS Cholecalciferol (D3-1000), 1,000 UNITS PO DAILY Citalopram Hydrobromide (Citalopram Hydrobromide), 30 MG PO DAILY Cyanocobalamin (B-12), 1,000 MCG PO QAM Dexlansoprazole (Dexilant), 60 MG PO QAM Ferrous Sulfate (Kp Ferrous Sulfate), 325 MG PO DAILY Gabapentin (Neurontin), 300 MG PO BID Gentamicin In Saline (Gentamicin Sulfate/0.9% S), 2 SPRAYS LATASHA TID Insulin Aspart (Novolog Flexpen), SQ QPM Insulin Glargine (Basaglar Kwikpen), 22 UNITS SQ QAM Ipratropium-Albuterol (Duoneb), 1 TREATMENT INH QID Levothyroxine Sodium (Levothyroxine Sodium), 100 MCG PO DAILY Melatonin (Melatonin), 10 MG PO HS Midodrine (Midodrine HCl), 2.5 MG PO TID Nystatin (Topical) (Nystop), 1 APPLN TOP TID Polyethylene Glycol-Propylene (Systane Ultra), 1 DROPS OP QID Potassium Chloride (K-Tabs), 20 MEQ PO DAILY Prednisone Tab (Prednisone), 40 MG PO DAILY Probiotic Product (Probiotic), 1 TAB PO DAILY Riboflavin (Riboflavin), 400 MG PO QAM Ropinirole Hydrochloride (Requip), 0.5 MG PO HS Simvastatin (Zocor), 20 MG PO HS Spironolactone (Aldactone), 25 MG PO BID Sucralfate (Carafate), 10 ML PO QID Tiotropium [place] (Spiriva Respimat), 2 PUFF INH BID Scheduled PRN Acetaminophen (Tylenol Arthritis Ext Rel), 650 MG PO Q4 PRN for Pain Uogylxfwnb-Erzohja-Ndgiabwd (Butal/Asa/Caff), 1 CAP PO Q4 PRN for Headache Diclofenac Sodium (Topical) (Voltaren 1% Top Gel), 1 APPLN TOP QID PRN for Pain Guaifenesin Ext Rel (Mucinex Ext Rel), 1,200 MG PO Q12 PRN for congestion Linaclotide (Linzess), 290 MCG PO DAILY PRN for Lorazepam (Ativan), 0.25-0.5 MG PO Q6 PRN for Sleep Tramadol (Ultram), 50 MG PO Q6H PRN for Pain Review of Systems Constitutional: No fever, No chills ENT: No nasal symptoms, No sore throat Respiratory: + wheezing, + shortness of breath (chronic), No cough, No sputum Cardiovascular: + chest pain (R sided) Abdomen: No pain, No nausea, No vomiting, No diarrhea, No constipation Musculoskeletal: + muscle pain (diffuse - ongoing) Genitourinary - Female: No dysuria Hematologic / Lymphatic: No abnormal bleeding/bruising Integumentary: No rash Physical Exam Vital Signs Date Time Temp Pulse Resp B/P (MAP) Pulse Ox O2 Delivery O2 Flow Rate FiO2 03/15/18 18:30 99 03/15/18 18:07 95 18 96 Nasal Cannula 5.0 03/15/18 18:01 96 24 133/74 96 Nasal Cannula 5.0 03/15/18 17:56 98 Nasal Cannula 5.0 03/15/18 16:00 97 18 158/82 96 Nasal Cannula 5.0 03/15/18 14:23 94 03/15/18 14:14 36.7 90 16 131/83 98 Nasal Cannula 5.0 03/15/18 14:14 98 Nasal Cannula 5.0 03/15/18 14:14 98 Nasal Cannula 5.0 General Appearance: WD/WN, no apparent distress Head: normocephalic, atraumatic Eyes: sclerae normal ENT: hearing grossly normal Neck: supple, no JVD, trachea midline, + pertinent finding (dry oral mucosa) Respiratory/Chest: no respiratory distress, no accessory muscle use, + wheezing (expiratory), + pertinent finding (siginificant tenderness with minimal touch of area just below R breast, mild erythema with powder/cream in place - no visualized open areas, strong odor from under the breast) Cardiovascular: regular rate, rhythm Abdomen/GI: normal bowel sounds, non tender, soft Extremities/Musculoskelatal: no calf tenderness Neurologic/Psych: alert, oriented x 3, + pertinent finding (mostly keeps eyes closed) Skin: warm/dry Diagnostics Laboratory Results Results Past 24 Hours Test 03/15/18 14:25 03/15/18 14:47 03/15/18 15:10 Range/Units White Blood Count 10.32 4.8-10.8 K/uL Red Blood Count 4.01 4.2-5.4 M/uL Hemoglobin 12.3 12.0-16.0 g/dL Hematocrit 39.0 37-47 % Mean Corpuscular Volume 97.3 80-100 fL Mean Corpuscular Hemoglobin 30.7 25-34 pg Mean Corpuscular Hemoglobin Concent 31.5 32-36 g/dl Platelet Count 177 130-400 K/uL Mean Platelet Volume 10.7 7.4-10.4 fL Neutrophils (%) (Auto) 80.5 % Lymphocytes (%) (Auto) 11.7 % Monocytes (%) (Auto) 5.1 % Eosinophils (%) (Auto) 0.3 % Basophils (%) (Auto) 0.1 % Neutrophils # (Auto) 8.30 1.4-6.5 K/uL Lymphocytes # (Auto) 1.21 1.2-3.4 K/uL Monocytes # (Auto) 0.53 0.11-0.59 K/uL Eosinophils # (Auto) 0.03 0-0.5 K/uL Basophils # (Auto) 0.01 0-0.2 K/uL RDW Standard Deviation 59.0 36.4-46.3 fL RDW Coefficient of Variation 16.6 11.5-14.5 % Immature Granulocyte % (Auto) 2.3 % Immature Granulocyte # (Auto) 0.24 0.00-0.02 K/uL Prothrombin Time 9.9 9.0-12.0 SECONDS Prothromb Time International Ratio 0.9 0.9-1.1 Sodium Level 140 136-145 mmol/L Potassium Level 3.7 3.5-5.1 mmol/L Chloride Level 104 98-107 mmol/L Carbon Dioxide Level 27 21-32 mmol/L Anion Gap 9.0 3-11 mmol/L Blood Urea Nitrogen 21 7-18 mg/dl Creatinine 1.12 0.60-1.20 mg/dl Est Creatinine Clear Calc Drug Dose 41.1 ml/min Estimated GFR () 53.4 Estimated GFR (Non- 46.0 BUN/Creatinine Ratio 18.5 10-20 Random Glucose 208 70-99 mg/dl Calcium Level 7.9 8.5-10.1 mg/dl Magnesium Level 1.8 1.8-2.4 mg/dl Total Bilirubin 0.5 0.2-1 mg/dl Direct Bilirubin < 0.1 0-0.2 mg/dl Aspartate Amino Transf (AST/SGOT) 16 15-37 U/L Alanine Aminotransferase (ALT/SGPT) 38 12-78 U/L Alkaline Phosphatase 60 45-117 U/L Total Creatine Kinase 35 26-192 U/L Troponin I < 0.015 0-0.045 ng/ml Pro-B-Type Natriuretic Peptide 140 0-1800 pg/ml Total Protein 6.0 6.4-8.2 gm/dl Albumin 2.9 3.4-5.0 gm/dl Lipase 149 73-393 U/L Venous Blood pH 7.44 7.36-7.41 Venous Blood Partial Pressure CO2 44 38.0-50.0 mmHg Venous Blood Partial Pressure O2 47 mmHg Venous Blood HCO3 29 mmol/L Venous Blood Oxygen Saturation 81.4 % Venous Blood Base Excess 4.2 mEq/L Lactic Acid Level 3.4 0.4-2.0 mmol/L Urine Color DK YELLOW Urine Appearance CLOUDY CLEAR Urine pH 5.0 4.5-7.5 Urine Specific [place] 1.031 1.000-1.030 Urine Protein NEG NEG Urine Glucose (UA) 1+ NEG Urine Ketones TRACE NEG Urine Occult Blood NEG NEG Urine Nitrite NEG NEG Urine Bilirubin NEG NEG Urine Urobilinogen NEG NEG Urine Leukocyte Esterase NEG NEG Urine WBC (Auto) 1-5 0-5 /hpf Urine RBC (Auto) 5-10 0-4 /hpf Urine Hyaline Casts (Auto) 5-10 0-5 /lpf Urine Epithelial Cells (Auto) >30 0-5 /lpf Urine Bacteria (Auto) NEG NEG Urine Pathogenic Casts 0 /lpf Microbiology Results 03/15/18 Blood Culture, Received Pending 03/15/18 Blood Culture, Received Pending 03/15/18 Urine Culture, Received Pending Diagnostic Radiology CT OF THE ABDOMEN AND PELVIS WITH CONTRAST FINDINGS: The chest will be reported separately. There is a trace right pleural effusion. Postoperative findings within the spine are noted. There is no biliary or pancreatic ductal dilatation. No hepatic lesions are present. The spleen, adrenal glands and kidneys are unremarkable. Is no hydronephrosis. No pneumatosis, free air or portal venous gas is present. There is no evidence for a bowel obstruction. Caliber and wall thickness of small and large bowel are normal. The appendix is not visualized but there is no right lower quadrant inflammation. Note is made of a 2.7 cm subcutaneous density of the right lower quadrant which may reflect a medication injection sites/tiny hematoma. No acute pelvic or lumbar spine fracture is noted. Old right-sided rib fractures are noted. There is no lymphadenopathy. Sensitivity for detection of urothelial lesions is diminished given the lack of delayed phase imaging. There are no ureteral calculi. There is minimal bladder wall thickening. IMPRESSION: 1. No ureteral calculi or hydronephrosis. Minimal bladder wall thickening which could be correlated with urinalysis. 2. No bowel obstruction. 3. No definite acute process within the abdomen or pelvis. CHEST CTA for PULMONARY ARTERIES FINDINGS: Normal caliber thoracic aorta with no evidence for dissection. Small right pleural effusion persists. The heart remains mildly enlarged. Nondiagnostic evaluation of the bilateral lower lobe subsegmental and lingular subsegmental pulmonary arteries due to the motion artifact. The remaining pulmonary arteries show no filling defects to suggest pulmonary embolus. Cervical and thoracolumbar spinal fusion hardware is again noted. No mediastinal or hilar lymphadenopathy. Chronic mild compression deformities within the thoracic spine remain unchanged. No acute fractures within the visualized osseous structures. Multiple old, healed right-sided rib fractures. Bilateral total shoulder arthroplasties. Stable 3.5 mm nodule within the right lung apex on image 210. Bibasilar linear densities are nonspecific but favor subsegmental atelectasis. These are similar to the prior study. IMPRESSION: 1. No evidence for pulmonary embolus with limitations as described above. 2. Small right pleural effusion, unchanged. 3. Right basilar linear densities are also similar to the prior study. These favor subsegmental atelectasis. 4. A stable 3.5 mm nodule within the right lung apex. CHEST ONE VIEW PORTABLE FINDINGS: Cardiac silhouette is again enlarged. Atherosclerosis of the aorta. Mild right hemidiaphragmatic elevation. Small bilateral pleural effusions with subsegmental linear bibasilar and lateral left midlung opacities. No overt pulmonary edema or pneumothorax. Bilateral shoulder arthroplasties. Spinal fusion changes of the thoracolumbar spine and cervical spine are partially imaged. Surgical clips project over the abdominal right upper quadrant. IMPRESSION: 1. Cardiomegaly without overt pulmonary edema. 2. Small bilateral pleural effusions with subsegmental bibasilar and lateral left midlung opacities suggesting atelectasis. EKG Sinus rhythm with Premature atrial complexes T wave abnormality, consider lateral ischemia Abnormal ECG When compared with ECG of 19-FEB-2018 00:37, Premature atrial complexes are now Present Impression Assessment and Plan Ms. Philip is an 83 y/o female with PMHx of Chronic Respiratory Failure 2/2 COPD, H/O DVTs, Hypothyroidism, T2DM, CKD Stage II/III, Diastolic CHF, and Elevated R Hemidiaphragm S/P Plication who presents to the ED c/o R sided CP. Chest Pain: - Pain is completely reproducible even with light touch of the skin and more specific to under the breast which is likely intertrigal related - no signs of shingles and patient reports she did have this before around the eye - May have an element of chronic pain Elevated Lactic: Suspect from Dehydration: - Patient is dry on examination and will given 1 L bolus and continue NSS at 80 mL/hr and repeat lactic - Initial was 3.4 with increase to 4.1 and will repeat after fluid bolus - if remains elevated may need to further explore with imaging vs initiate empiric antibiotics given her H/O MRSA/bordetella bronchiseptica PNA Lethargy: - She is alert and oriented with good recall and answers appropriate - however is laying in bed mostly with eyes closed. May be dehyrdation related and will monitor Acute on Chronic Respiratory Failure 2/2 COPD: Baseline 4 vs 5 L? - Was just at pulm office with appropriate sats on 4 L - currently requiring 5 and having wheezing - Solu-Medrol 40 mg IV Q8H; Duonebs FERDINAND and PRN H/O DVTs: - Eliquis 5 mg BID T2DM with Hyperglycemia: - Likely will continue to run high with steroids - given lethargy unsure of oral intake and will implement SSI but likely will need to add long-acting coverage for better control Disposition: From home with daughter Advanced Directives Existing Living Will: Yes Existing Power of Dredge Runner: Yes (STARLA DTR ) Resuscitation Status VTE Prophylaxis Will order VTE Prophylaxis: Yes History Patient seen and examined, chart reviewed, case discussed with THEO Cid and I agree with her assessment and plan as documented above. Briefly, patient is an 83yo female with complex past medical history presenting with right sided chest and abdominal pain. Patient denies fevers/chills/increase in cough or sputum production/no recent illness. She does admit to feeling more short of breath than usual and is presently receiving a neb treatment. On physical exam she is afebrile and hemodynamically stable. She is resting in bed, NAD, awake but sleepy and oriented x 4. HEENT with dry mucus membranes. Heart +S1/S2, no m/r/g, distant heart sounds. Lungs with equal air entry bilaterally, no rales/rhonchi +diffuse mild end-expiratory wheezing in bilateral lung madden. Abdomen obese, soft, tender on the right side with voluntary guarding. No rebound. No peritoneal signs. Ext warm, well perfused , no edema. Neuro - grossly intact Labs and images reviewed - significant for lactate of 3.4 Assessment and plan: Will admit to telemetry. Tx for suspected COPD exacerbation given presence of wheezing and increased O2 demand - steroids, nebs. Treat dehydration with gentle IVF and electrolyte repletion. Repeat lactate - if increasing would consider repeat CT Abdomen and addition of antibiotics Remainder of plan as above
[2018-03-15] MEDS ORDERED: GLUCOSE 10 TABS/TUBE PO PRN (19:00)
[2018-03-15] MEDS ORDERED: CARBOHYDRATES FOR HYPOGLYCEMIA PO PRN (19:00)
[2018-03-15] MEDS ORDERED: DEXTROSE 50% 50 ML SYR IV PRN (19:00)
[2018-03-15] MEDS ORDERED: GLUCAGON FOR INJ 1 MG VIAL SQ PRN (19:00)
[2018-03-15] MEDS ORDERED: GLUCOSE 40% GEL 15 GM TUBE PO PRN (19:00)
[2018-03-15] MEDS: ALBUT/IPRATROP 3MG/0.5MG NEB 3 ML VIAL NEB SCH (19:35)
[2018-03-15] MEDS: SODIUM CHLORIDE 0.9% 1000ML 1,000 ML IV SCH (20:17)
[2018-03-15] MEDS: NYSTATIN POWDER 15GM BTL EXT SCH (21:19)
[2018-03-15] MEDS ORDERED: CALC1CAP36 PO (21:19)
[2018-03-15] MEDS ORDERED: NYST100010 TOP (21:19)
[2018-03-15] MEDS ORDERED: NVLGI/PEN SQ (21:19)
[2018-03-15] MEDS ORDERED: DICL1GEL12 TOP (21:19)
[2018-03-15] MEDS ORDERED: DEXL60CA4 PO (21:19)
[2018-03-15] MEDS: SUCRALFATE 1 GM/10 ML UDC PO SCH (21:20)
[2018-03-15] MEDS: APIXABAN 2.5 MG TAB PO SCH (21:21)
[2018-03-15] MEDS: CALCIUM CARBONATE 1250MG TAB PO SCH (21:21)
[2018-03-15] MEDS: SIMVASTATIN 20 MG TAB PO SCH (21:21)
[2018-03-15] MEDS: GABAPENTIN 300 MG CAP PO SCH (21:22)
[2018-03-15] MEDS: ROPINIROLE HCL 0.25 MG TAB PO SCH (21:23)
[2018-03-15] MEDS: INSULIN ASPART 100 UNITS/ML 3 ML PEN SC SCH (21:27)
[2018-03-15] MEDS ORDERED: SODIUM CHLORIDE 0.9% 1000ML 1,000 ML IV ONE (21:30)
[2018-03-15 23:36] VITALS: BP 163/72; PULSE 99; TEMP 37.2; O2SAT 96
[2018-03-16] VITALS (10 sets, daily range): BP systolic 128–148; BP diastolic 64–75; PULSE 90–95; TEMP 36.5–37; O2SAT 95–99
[2018-03-16] MEDS ORDERED: VANCOMYCIN CONSULT ACTIVE PRN (00:15)
[2018-03-16] MEDS ORDERED: VANCOMYCIN IV 1,000 MG in SODIUM CHLORIDE 0.9% 250ML 250 ML IV SCH (00:15)
[2018-03-16] MEDS ORDERED: AZITHROMYCIN IV 500 MG in DEXTROSE 5% 250ML 250 ML IV SCH (00:15)
[2018-03-16] MEDS ORDERED: SODIUM CHLORIDE 0.9% 1000ML 1,000 ML IV SCH (00:15)
[2018-03-16] MEDS ORDERED: VANCOMYCIN IV 2,000 MG in SODIUM CHLORIDE 0.9% 500ML 500 ML IV SCH (01:00)
[2018-03-16] MEDS: ALBUT/IPRATROP 3MG/0.5MG NEB 3 ML VIAL NEB SCH ×4 (01:35→18:55)
[2018-03-16] MEDS: METHYLPREDNISOLONE IV 40 MG in SYRINGE 0 ML IV SCH ×3 (01:39→17:22)
[2018-03-16] MEDS: TRAMADOL HCL 50 MG TAB PO PRN ×2 (04:35→16:41)
[2018-03-16] MEDS: LEVOTHYROXINE 100 MCG TAB PO SCH (06:03)
[2018-03-16] MEDS: MIDODRINE 2.5 MG TAB PO SCH ×3 (06:03→16:38)
[2018-03-16] MEDS: HYOSCYAMINE SULFATE 0.125 MG SL TAB SL PRN ×2 (06:26→16:37)
[2018-03-16 06:54] LABS: HEMATOCRIT 32.6 % (37-47); HEMOGLOBIN 10.5 g/dL (12.0-16.0); MEAN CELL VOLUME 96.7 fL (80-100); MEAN CORPUSCULAR HEMOGLOBIN 31.2 pg (25-34); MEAN CORPUSCULAR HGB CONC 32.2 g/dl (32-36); MEAN PLATELET VOLUME 10.5 fL (7.4-10.4); NUCLEATED RED BLOOD CELL ABS 0.02 K/uL (0-0); PLATELET COUNT 162 K/uL (130-400); RED CELL DISTRIBUTION WIDTH CV 16.4 % (11.5-14.5); RED CELL DISTRIBUTION WIDTH SD 57.6 fL (36.4-46.3); WHITE BLOOD COUNT 8.74 K/uL (4.8-10.8)
[2018-03-16 07:24] LABS: CREATININE 0.95 mg/dl (0.60-1.20); POTASSIUM 4.2 mmol/L (3.5-5.1)
[2018-03-16] MEDS: NYSTATIN POWDER 15GM BTL EXT SCH ×3 (08:01→21:00)
[2018-03-16] MEDS: CHOLECALCIFEROL 1000 INTER.UNIT TAB PO SCH (08:01)
[2018-03-16] MEDS: CYANOCOBALAMIN 500 MCG TAB (VIT B-12) PO SCH (08:02)
[2018-03-16] MEDS: APIXABAN 2.5 MG TAB PO SCH ×2 (08:02→20:59)
[2018-03-16] MEDS: GABAPENTIN 300 MG CAP PO SCH ×2 (08:03→20:59)
[2018-03-16] MEDS: SUCRALFATE 1 GM/10 ML UDC PO SCH ×4 (08:03→20:58)
[2018-03-16] MEDS: FERROUS SULFATE 325 MG TAB PO SCH (08:03)
[2018-03-16] MEDS: CALCITRIOL 0.25 MCG CAP PO SCH (08:03)
[2018-03-16] MEDS: CITALOPRAM 20 MG TAB PO SCH (08:03)
[2018-03-16] MEDS: BUTALBITAL/ASA/CAFFEINE 1 EA TAB/CAP PO PRN (08:04)
[2018-03-16] MEDS: POTASSIUM CHLORIDE 10 MEQ TABCR PO SCH (08:04)
[2018-03-16] MEDS: INSULIN ASPART 100 UNITS/ML 3 ML PEN SC SCH ×4 (08:09→21:08)
[2018-03-16] MEDS ORDERED: LANTUS PER UNIT CHARGE SC STA (08:26)
[2018-03-16] MEDS: PANTOprazole SOD 40 MG TAB PO SCH (09:26)
[2018-03-16] MEDS: ACETAMINOPHEN 325 MG TAB PO PRN (13:07)
[2018-03-16] MEDS: OXYCODONE HCL IR 5 MG TAB (IMMEDIATE RELEASE) PO PRN ×2 (13:07→20:58)
[2018-03-16] MEDS: SODIUM CHLORIDE 0.9% 1000ML 1,000 ML IV SCH (13:12)
--- NOTE | 2018-03-16 17:29 | Progress Note ---
Subjective Date of Service: Mar 16, 2018. Subjective pt has more abdominal wall pain and no further chest pain, states her breathing is worse than baseline, she has no other new complaints daughter is at the bedside and updated Problem List Medical Problems: (1) Cervical strain Status: Acute (2) Contusion of multiple sites Status: Acute (3) COPD exacerbation Status: Acute (4) Fall Status: Acute (5) Fall from chair, initial encounter Status: Acute (6) Fatigue Status: Acute (7) Head injury Status: Acute (8) Head injury Status: Acute (9) Hip pain Status: Acute (10) Hypocalcemia Status: Acute (11) Hypoxia Status: Acute (12) Hypoxia Status: Acute (13) Lower extremity edema Status: Acute (14) PNA (pneumonia) Status: Acute (15) Pneumonia Status: Acute (16) Pneumonitis Status: Acute (17) Reactive airway disease Status: Acute (18) Right flank pain Status: Acute (19) Sepsis Status: Acute (20) Sepsis Status: Acute (21) Syncope Status: Acute (22) Traumatic compression fracture of third thoracic vertebra Status: Acute (23) Vaginal yeast infection Status: Acute (24) Weakness Status: Acute (25) Yeast vaginitis Status: Acute Review of Systems Constitutional: + weakness, + fatigue, No fever, No chills Respiratory: + cough, + sputum, + shortness of breath, + dyspnea on exertion Cardiac: No chest pain, No edema, No claudication Abdomen: + pain, No nausea, No vomiting Musculoskeletal: No joint pain, No muscle pain Female : No dysuria, No urinary frequency, No hematuria, No incontinence Neurologic: No memory loss, No paralysis Psychiatric: No depression symptoms, No anhedonism Objective Vital Signs Date Time Temp Pulse Resp B/P (MAP) Pulse Ox O2 Delivery O2 Flow Rate FiO2 03/16/18 06:58 90 16 98 Nasal Cannula 4.0 03/16/18 06:20 36.6 91 22 131/67 (88) 97 Nasal Cannula 3.5 03/16/18 04:00 Nasal Cannula 3.0 03/16/18 03:39 36.7 94 20 148/73 (98) 97 Nasal Cannula 3.5 03/16/18 01:35 95 16 98 Nasal Cannula 2.0 03/15/18 23:59 Nasal Cannula 2.0 03/15/18 23:36 37.2 99 22 163/72 (102) 96 Nasal Cannula 2.0 03/15/18 19:14 97 19 134/81 97 03/15/18 18:30 99 03/15/18 18:07 95 18 96 Nasal Cannula 5.0 03/15/18 18:01 96 24 133/74 96 Nasal Cannula 5.0 03/15/18 17:56 36.8 109 18 129/78 98 Nasal Cannula 5.0 03/15/18 16:00 97 18 158/82 96 Nasal Cannula 5.0 03/15/18 14:23 94 03/15/18 14:14 36.7 90 16 131/83 98 Nasal Cannula 5.0 03/15/18 14:14 98 Nasal Cannula 5.0 03/15/18 14:14 98 Nasal Cannula 5.0 Physical Exam General Appearance: WD/WN, + moderate distress, + obese Eyes: normal inspection, sclerae normal Neck: supple, trachea midline Respiratory/Chest: + decreased breath sounds, + accessory muscle use, + rhonchi Cardiovascular: regular rate, rhythm, no murmur Abdomen: normal bowel sounds, soft, + tenderness (right abdomen, no rash seen to suggest shingles) Extremities: no pedal edema, no calf tenderness Neurologic/Psychiatric: alert, oriented x 3 Laboratory Results Last 24 Hours Test 03/15/18 14:25 03/15/18 14:47 03/15/18 15:10 03/15/18 19:33 White Blood Count 10.32 K/uL Red Blood Count 4.01 M/uL Hemoglobin 12.3 g/dL Hematocrit 39.0 % Mean Corpuscular Volume 97.3 fL Mean Corpuscular Hemoglobin 30.7 pg Mean Corpuscular Hemoglobin Concent 31.5 g/dl Platelet Count 177 K/uL Mean Platelet Volume 10.7 fL Neutrophils (%) (Auto) 80.5 % Lymphocytes (%) (Auto) 11.7 % Monocytes (%) (Auto) 5.1 % Eosinophils (%) (Auto) 0.3 % Basophils (%) (Auto) 0.1 % Neutrophils # (Auto) 8.30 K/uL Lymphocytes # (Auto) 1.21 K/uL Monocytes # (Auto) 0.53 K/uL Eosinophils # (Auto) 0.03 K/uL Basophils # (Auto) 0.01 K/uL RDW Standard Deviation 59.0 fL RDW Coefficient of Variation 16.6 % Immature Granulocyte % (Auto) 2.3 % Immature Granulocyte # (Auto) 0.24 K/uL Prothrombin Time 9.9 SECONDS Prothromb Time International Ratio 0.9 Sodium Level 140 mmol/L Potassium Level 3.7 mmol/L Chloride Level 104 mmol/L Carbon Dioxide Level 27 mmol/L Anion Gap 9.0 mmol/L Blood Urea Nitrogen 21 mg/dl Creatinine 1.12 mg/dl Est Creatinine Clear Calc Drug Dose 41.1 ml/min Estimated GFR () 53.4 Estimated GFR (Non- 46.0 BUN/Creatinine Ratio 18.5 Random Glucose 208 mg/dl Calcium Level 7.9 mg/dl Magnesium Level 1.8 mg/dl Total Bilirubin 0.5 mg/dl Direct Bilirubin < 0.1 mg/dl Aspartate Amino Transf (AST/SGOT) 16 U/L Alanine Aminotransferase (ALT/SGPT) 38 U/L Alkaline Phosphatase 60 U/L Total Creatine Kinase 35 U/L Troponin I < 0.015 ng/ml Pro-B-Type Natriuretic Peptide 140 pg/ml Total Protein 6.0 gm/dl Albumin 2.9 gm/dl Lipase 149 U/L Venous Blood pH 7.44 Venous Blood Partial Pressure CO2 44 mmHg Venous Blood Partial Pressure O2 47 mmHg Venous Blood HCO3 29 mmol/L Venous Blood Oxygen Saturation 81.4 % Venous Blood Base Excess 4.2 mEq/L Lactic Acid Level 3.4 mmol/L 4.1 mmol/L Urine Color DK YELLOW Urine Appearance CLOUDY Urine pH 5.0 Urine Specific [place] 1.031 Urine Protein NEG Urine Glucose (UA) 1+ Urine Ketones TRACE Urine Occult Blood NEG Urine Nitrite NEG Urine Bilirubin NEG Urine Urobilinogen NEG Urine Leukocyte Esterase NEG Urine WBC (Auto) 1-5 /hpf Urine RBC (Auto) 5-10 /hpf Urine Hyaline Casts (Auto) 5-10 /lpf Urine Epithelial Cells (Auto) >30 /lpf Urine Bacteria (Auto) NEG Urine Pathogenic Casts /lpf Test 03/15/18 20:08 03/15/18 23:07 03/16/18 06:46 03/16/18 07:11 Bedside Glucose 333 mg/dl 288 mg/dl Lactic Acid Level 5.3 mmol/L White Blood Count 8.74 K/uL Red Blood Count 3.37 M/uL Hemoglobin 10.5 g/dL Hematocrit 32.6 % Mean Corpuscular Volume 96.7 fL Mean Corpuscular Hemoglobin 31.2 pg Mean Corpuscular Hemoglobin Concent 32.2 g/dl RDW Standard Deviation 57.6 fL RDW Coefficient of Variation 16.4 % Platelet Count 162 K/uL Mean Platelet Volume 10.5 fL Nucleated RBC Absolute Count (auto) 0.02 K/uL Nucleated Red Blood Cells % 0.2 % Sodium Level 141 mmol/L Potassium Level 4.2 mmol/L Chloride Level 107 mmol/L Carbon Dioxide Level 25 mmol/L Anion Gap 9.0 mmol/L Blood Urea Nitrogen 18 mg/dl Creatinine 0.95 mg/dl Est Creatinine Clear Calc Drug Dose 47.3 ml/min Estimated GFR () 65.1 Estimated GFR (Non- 56.2 BUN/Creatinine Ratio 18.9 Random Glucose 235 mg/dl Calcium Level 8.0 mg/dl Magnesium Level 2.3 mg/dl Assessment and Plan 83 y/o female presents with right sided chest/abd pain and acute on Chronic Respiratory Failure with hypoxia, COPD, H/O DVTs, Hypothyroidism, T2DM, CKD Stage II/III, Diastolic CHF, and Elevated R Hemidiaphragm S/P Plication Right sided Chest Pain: - Pain reproducible concern for cutaneous yeast infection, no signs of shingles ( she has history of the same) Elevated Lactic: Suspect from Dehydration: clinically dehydrated continue NSS at 80 mL/hr and repeat lactic given her H/O MRSA/bordetella bronchiseptica PNA will watch for infection, checked procalcitonin and was normal going against sepsis Lethargy:- She was alert and oriented with good recall and answers appropriate Acute on Chronic Respiratory Failure with hypoxia COPD: Baseline 4 vs 5 L? -- currently requiring 5 and having wheezing- Solu-Medrol 40 mg IV Q8H; Duonebs FERDINAND and PRN H/O DVTs:- Eliquis 5 mg BID--> convert to lovenox for upcoming tracheostomy T2DM SSI consider long acting insulin Disposition: From home with daughter
[2018-03-16] MEDS: SIMVASTATIN 20 MG TAB PO SCH (20:59)
[2018-03-16] MEDS: CALCIUM CARBONATE 1250MG TAB PO SCH (20:59)
[2018-03-16] MEDS: ROPINIROLE HCL 0.25 MG TAB PO SCH (20:59)
[2018-03-17] VITALS (13 sets, daily range): BP systolic 109–191; BP diastolic 74–106; PULSE 83–108; TEMP 36.9–37.1; O2SAT 95–99
[2018-03-17] MEDS: TRAMADOL HCL 50 MG TAB PO PRN (00:50)
[2018-03-17] MEDS: LORAZEPAM 0.5 MG TAB PO PRN (00:51)
[2018-03-17] MEDS: ALBUT/IPRATROP 3MG/0.5MG NEB 3 ML VIAL NEB SCH ×4 (01:56→18:59)
[2018-03-17] MEDS: METHYLPREDNISOLONE IV 40 MG in SYRINGE 0 ML IV SCH ×2 (02:06→09:56)
[2018-03-17 05:20] LABS: HEMATOCRIT 33.2 % (37-47); HEMOGLOBIN 10.2 g/dL (12.0-16.0); MEAN CELL VOLUME 96.2 fL (80-100); MEAN CORPUSCULAR HEMOGLOBIN 29.6 pg (25-34); MEAN CORPUSCULAR HGB CONC 30.7 g/dl (32-36); MEAN PLATELET VOLUME 10.3 fL (7.4-10.4); NUCLEATED RED BLOOD CELL ABS 0.02 K/uL (0-0); PLATELET COUNT 168 K/uL (130-400); RED CELL DISTRIBUTION WIDTH CV 16.4 % (11.5-14.5); RED CELL DISTRIBUTION WIDTH SD 56.9 fL (36.4-46.3); WHITE BLOOD COUNT 9.44 K/uL (4.8-10.8)
[2018-03-17 05:38] LABS: CALCIUM 8.5 mg/dl (8.5-10.1); CREATININE 0.83 mg/dl (0.60-1.20); POTASSIUM 4.3 mmol/L (3.5-5.1)
[2018-03-17] MEDS: LEVOTHYROXINE 100 MCG TAB PO SCH (06:35)
[2018-03-17] MEDS: MIDODRINE 2.5 MG TAB PO SCH (06:37)
[2018-03-17] MEDS: SUCRALFATE 1 GM/10 ML UDC PO SCH ×4 (08:16→20:41)
[2018-03-17] MEDS: NYSTATIN POWDER 15GM BTL EXT SCH ×3 (08:16→20:43)
[2018-03-17] MEDS: BUTALBITAL/ASA/CAFFEINE 1 EA TAB/CAP PO PRN (08:17)
[2018-03-17] MEDS: CHOLECALCIFEROL 1000 INTER.UNIT TAB PO SCH (08:17)
[2018-03-17] MEDS: GABAPENTIN 300 MG CAP PO SCH ×2 (08:17→20:42)
[2018-03-17] MEDS: CYANOCOBALAMIN 500 MCG TAB (VIT B-12) PO SCH (08:17)
[2018-03-17] MEDS: CITALOPRAM 20 MG TAB PO SCH (08:17)
[2018-03-17] MEDS: CALCITRIOL 0.25 MCG CAP PO SCH (08:18)
[2018-03-17] MEDS: DICLOFENAC SOD 1% GEL 100 GM TUBE EXT PRN (08:18)
[2018-03-17] MEDS: PANTOprazole SOD 40 MG TAB PO SCH (08:18)
[2018-03-17] MEDS: APIXABAN 2.5 MG TAB PO SCH ×2 (08:18→20:42)
[2018-03-17] MEDS: FERROUS SULFATE 325 MG TAB PO SCH (08:18)
[2018-03-17] MEDS: POTASSIUM CHLORIDE 10 MEQ TABCR PO SCH (08:19)
[2018-03-17] MEDS: INSULIN ASPART 100 UNITS/ML 3 ML PEN SC SCH ×4 (08:24→20:47)
[2018-03-17] MEDS: OXYCODONE HCL IR 5 MG TAB (IMMEDIATE RELEASE) PO PRN (08:27)
[2018-03-17] MEDS: ACETAMINOPHEN 325 MG TAB PO PRN (08:28)
[2018-03-17] MEDS ORDERED: NURSING VERBAL MED ORDER ONE (10:45)
[2018-03-17] MEDS ORDERED: CLONIDINE HCL 0.1 MG TAB PO ONE (11:30)
--- NOTE | 2018-03-17 15:44 | Progress Note ---
Subjective Date of Service: Mar 17, 2018. Subjective pt states she feels she has returned to her baseline with regard to her breathing and has some improvement of her right sided chest pain, she has no evidence of shingles and her intertrigo has improved with antifungal powder Problem List Medical Problems: (1) Cervical strain Status: Acute (2) Contusion of multiple sites Status: Acute (3) COPD exacerbation Status: Acute (4) Fall Status: Acute (5) Fall from chair, initial encounter Status: Acute (6) Fatigue Status: Acute (7) Head injury Status: Acute (8) Head injury Status: Acute (9) Hip pain Status: Acute (10) Hypocalcemia Status: Acute (11) Hypoxia Status: Acute (12) Hypoxia Status: Acute (13) Lower extremity edema Status: Acute (14) PNA (pneumonia) Status: Acute (15) Pneumonia Status: Acute (16) Pneumonitis Status: Acute (17) Reactive airway disease Status: Acute (18) Right flank pain Status: Acute (19) Sepsis Status: Acute (20) Sepsis Status: Acute (21) Syncope Status: Acute (22) Traumatic compression fracture of third thoracic vertebra Status: Acute (23) Vaginal yeast infection Status: Acute (24) Weakness Status: Acute (25) Yeast vaginitis Status: Acute Review of Systems Constitutional: + weakness, + fatigue Respiratory: + cough, + sputum, + shortness of breath, + dyspnea on exertion Cardiac: + chest pain, No edema Breast: + problem reported (red skin changes beneath right breast), No breast lump, No change in shape Abdomen: No pain, No nausea, No vomiting, No diarrhea Musculoskeletal: + joint pain, + muscle pain Female : No dysuria, No urinary frequency Psychiatric: + depression symptoms, No anxiety Objective Vital Signs Date Time Temp Pulse Resp B/P (MAP) Pulse Ox O2 Delivery O2 Flow Rate FiO2 03/17/18 15:25 36.9 99 22 160/81 (107) 99 Nasal Cannula 3.0 03/17/18 12:46 105 18 98 Nasal Cannula 4.0 03/17/18 12:03 Nasal Cannula 3.0 03/17/18 11:10 37.0 107 24 191/106 (134) 96 Nasal Cannula 2.0 03/17/18 08:06 Nasal Cannula 2.0 03/17/18 07:20 37.0 93 18 172/95 (120) 95 Nasal Cannula 2.0 03/17/18 07:07 93 16 96 Nasal Cannula 2.0 03/17/18 04:17 36.9 94 21 165/84 (111) 98 Nasal Cannula 2.0 03/17/18 04:00 98 Nasal Cannula 2.0 03/17/18 01:56 83 16 98 Nasal Cannula 2.0 03/17/18 00:36 37.0 88 20 157/79 (105) 98 2.0 03/17/18 00:00 98 Nasal Cannula 2.0 03/16/18 20:00 96 Nasal Cannula 2.0 03/16/18 19:35 37.0 92 20 148/75 (99) 96 Nasal Cannula 3.0 03/16/18 18:55 93 18 97 Nasal Cannula 2.0 03/16/18 16:03 Nasal Cannula 2.0 03/16/18 15:46 36.6 94 22 134/64 (87) 95 Nasal Cannula 2.0 Physical Exam General Appearance: WD/WN, + mild distress Eyes: normal inspection, sclerae normal Neck: supple, trachea midline Respiratory/Chest: + decreased breath sounds, + accessory muscle use, + rhonchi Cardiovascular: regular rate, rhythm, no murmur Abdomen: normal bowel sounds, non tender, soft Extremities: no calf tenderness, + pedal edema Neurologic/Psychiatric: alert, oriented x 3 Skin: + rash, + pertinent finding (red skin changes beneath right breast) Laboratory Results Last 24 Hours Test 03/16/18 16:07 03/16/18 20:10 03/17/18 05:10 03/17/18 07:20 Bedside Glucose 171 mg/dl 248 mg/dl 206 mg/dl White Blood Count 9.44 K/uL Red Blood Count 3.45 M/uL Hemoglobin 10.2 g/dL Hematocrit 33.2 % Mean Corpuscular Volume 96.2 fL Mean Corpuscular Hemoglobin 29.6 pg Mean Corpuscular Hemoglobin Concent 30.7 g/dl RDW Standard Deviation 56.9 fL RDW Coefficient of Variation 16.4 % Platelet Count 168 K/uL Mean Platelet Volume 10.3 fL Nucleated RBC Absolute Count (auto) 0.02 K/uL Nucleated Red Blood Cells % 0.2 % Sodium Level 138 mmol/L Potassium Level 4.3 mmol/L Chloride Level 105 mmol/L Carbon Dioxide Level 26 mmol/L Anion Gap 7.0 mmol/L Blood Urea Nitrogen 20 mg/dl Creatinine 0.83 mg/dl Est Creatinine Clear Calc Drug Dose 54.1 ml/min Estimated GFR () 76.6 Estimated GFR (Non- 66.1 BUN/Creatinine Ratio 24.3 Random Glucose 211 mg/dl Calcium Level 8.5 mg/dl Magnesium Level 2.0 mg/dl Test 03/17/18 11:00 Bedside Glucose 152 mg/dl Assessment and Plan 83 y/o female presents with right sided chest/abd pain and acute on Chronic Respiratory Failure with hypoxia, COPD, H/O DVTs, Hypothyroidism, T2DM, CKD Stage II/III, Diastolic CHF, and Elevated R Hemidiaphragm S/P Plication Right sided Chest Pain: resolving no defined source - Pain reproducible concern for cutaneous yeast infection this is clinically improving, continues with no signs of shingles( she has history of the same) Elevated Lactic: Suspect from Dehydration: given her H/O MRSA/bordetella bronchiseptica PNA will watch for infection, checked procalcitonin and was normal going against sepsis Lethargy:- She continues to be alert and oriented with good recall and answers appropriate Acute on Chronic Respiratory Failure with hypoxia COPD: Baseline 4 vs 5 L? -- resolved wheezing- Solu-Medrol 40 mg IV taper as able; Rocío FERDINAND and PRN H/O DVTs:- Eliquis 5 mg BID--> converted to lovenox for upcoming tracheostomy T2DM SSI plus using lantus bid Disposition: From home with daughter
[2018-03-17] MEDS: ROPINIROLE HCL 0.25 MG TAB PO SCH (20:41)
[2018-03-17] MEDS: CALCIUM CARBONATE 1250MG TAB PO SCH (20:41)
[2018-03-17] MEDS: SIMVASTATIN 20 MG TAB PO SCH (20:42)
[2018-03-17] MEDS ORDERED: METHYLPREDNISOLONE IV 40 MG in SYRINGE 0 ML IV SCH (22:00)
[2018-03-18] VITALS (11 sets, daily range): BP systolic 117–177; BP diastolic 58–98; PULSE 86–114; TEMP 36.6–37.1; O2SAT 96–99
[2018-03-18] MEDS: LORAZEPAM 0.5 MG TAB PO PRN ×2 (00:44→21:12)
[2018-03-18] MEDS: OXYCODONE HCL IR 5 MG TAB (IMMEDIATE RELEASE) PO PRN ×3 (00:45→21:12)
[2018-03-18] MEDS: ALBUT/IPRATROP 3MG/0.5MG NEB 3 ML VIAL NEB SCH ×4 (01:54→19:55)
[2018-03-18] MEDS: LEVOTHYROXINE 100 MCG TAB PO SCH (06:18)
[2018-03-18 07:45] LABS: HEMATOCRIT 35.4 % (37-47); HEMOGLOBIN 11.6 g/dL (12.0-16.0); MEAN CELL VOLUME 95.4 fL (80-100); MEAN CORPUSCULAR HEMOGLOBIN 31.3 pg (25-34); MEAN CORPUSCULAR HGB CONC 32.8 g/dl (32-36); MEAN PLATELET VOLUME 10.6 fL (7.4-10.4); NUCLEATED RED BLOOD CELL ABS 0.02 K/uL (0-0); PLATELET COUNT 178 K/uL (130-400); RED CELL DISTRIBUTION WIDTH CV 16.4 % (11.5-14.5); RED CELL DISTRIBUTION WIDTH SD 56.6 fL (36.4-46.3); WHITE BLOOD COUNT 8.06 K/uL (4.8-10.8)
--- NOTE | 2018-03-18 07:58 | Progress Note ---
Subjective Date of Service: Mar 18, 2018. Subjective this pt is still having intermittent issues with coughing and eating, baseline shortness of breath maybe a bit worse than usual. Is contemplating tracheostomy this week with Dr Khalil and Dr Velazquez Problem List Medical Problems: (1) Cervical strain Status: Acute (2) Contusion of multiple sites Status: Acute (3) COPD exacerbation Status: Acute (4) Fall Status: Acute (5) Fall from chair, initial encounter Status: Acute (6) Fatigue Status: Acute (7) Head injury Status: Acute (8) Head injury Status: Acute (9) Hip pain Status: Acute (10) Hypocalcemia Status: Acute (11) Hypoxia Status: Acute (12) Hypoxia Status: Acute (13) Lower extremity edema Status: Acute (14) PNA (pneumonia) Status: Acute (15) Pneumonia Status: Acute (16) Pneumonitis Status: Acute (17) Reactive airway disease Status: Acute (18) Right flank pain Status: Acute (19) Sepsis Status: Acute (20) Sepsis Status: Acute (21) Syncope Status: Acute (22) Traumatic compression fracture of third thoracic vertebra Status: Acute (23) Vaginal yeast infection Status: Acute (24) Weakness Status: Acute (25) Yeast vaginitis Status: Acute Review of Systems Constitutional: No fever, No chills, No weakness Respiratory: + wheezing, + shortness of breath, + dyspnea on exertion, No cough Cardiac: + chest pain, + edema Abdomen: No pain, No nausea, No vomiting Musculoskeletal: No joint pain, No muscle pain Psychiatric: No depression symptoms, No anxiety Objective Vital Signs Date Time Temp Pulse Resp B/P (MAP) Pulse Ox O2 Delivery O2 Flow Rate FiO2 03/18/18 07:13 96 18 98 Nasal Cannula 3.0 03/18/18 04:00 96 Nasal Cannula 3.0 03/18/18 03:45 36.9 104 21 177/79 (111) 96 Nasal Cannula 3.0 03/18/18 00:01 36.9 86 20 163/90 (114) 96 Nasal Cannula 3.0 03/18/18 00:00 96 Nasal Cannula 3.0 03/17/18 20:00 96 Nasal Cannula 3.0 03/17/18 19:28 37.1 91 20 109/74 (86) 96 Nasal Cannula 2.5 03/17/18 18:59 108 18 98 Nasal Cannula 3.0 03/17/18 16:02 Nasal Cannula 2.0 03/17/18 15:25 36.9 99 22 160/81 (107) 99 Nasal Cannula 3.0 03/17/18 12:46 105 18 98 Nasal Cannula 4.0 03/17/18 12:03 Nasal Cannula 3.0 03/17/18 11:10 37.0 107 24 191/106 (134) 96 Nasal Cannula 2.0 03/17/18 08:06 Nasal Cannula 2.0 Physical Exam General Appearance: WD/WN, + moderate distress Neck: supple, no JVD Respiratory/Chest: chest non-tender, + decreased breath sounds, + accessory muscle use Cardiovascular: regular rate, rhythm, no murmur Abdomen: normal bowel sounds, non tender, soft Extremities: no calf tenderness, + pedal edema Neurologic/Psychiatric: alert, oriented x 3 Laboratory Results Last 24 Hours Test 03/17/18 11:00 03/17/18 15:54 03/17/18 20:40 03/18/18 07:24 Bedside Glucose 152 mg/dl 202 mg/dl 206 mg/dl 208 mg/dl Test 03/18/18 07:34 White Blood Count 8.06 K/uL Red Blood Count 3.71 M/uL Hemoglobin 11.6 g/dL Hematocrit 35.4 % Mean Corpuscular Volume 95.4 fL Mean Corpuscular Hemoglobin 31.3 pg Mean Corpuscular Hemoglobin Concent 32.8 g/dl RDW Standard Deviation 56.6 fL RDW Coefficient of Variation 16.4 % Platelet Count 178 K/uL Mean Platelet Volume 10.6 fL Nucleated RBC Absolute Count (auto) 0.02 K/uL Nucleated Red Blood Cells % 0.3 % Assessment and Plan 83 y/o female presents with right sided chest/abd pain and acute on Chronic Respiratory Failure with hypoxia, COPD, H/O DVTs, Hypothyroidism, T2DM, CKD Stage II/III, Diastolic CHF, and Elevated R Hemidiaphragm S/P Plication Right sided Chest Pain: resolving no defined source - Pain reproducible concern for cutaneous yeast infection this is clinically improving, continues with no signs of shingles( she has history of the same) Elevated Lactic: Suspect from Dehydration: is improved but not normalized, no signs of active infection given her H/O MRSA/bordetella bronchiseptica PNA will watch for infection, checked procalcitonin and was normal going against sepsis Lethargy:- She continues to be alert and oriented with good recall and answers appropriate Acute on Chronic Respiratory Failure with hypoxia COPD: Baseline 4 vs 5 L? -- resolved wheezing-steroid taper as able; Duonebs FERDINAND and PRN Pt has some third spacing and cor pulmonale clinically, echo from 2017 doesnt comment on pulm presssures, will give one dose of lasix as it may help bp also HTN did have midodrine for orthostasis but now is hypertensive will hold and start clonidine H/O DVTs:- Eliquis 5 mg BID--> converted to lovenox for upcoming tracheostomy T2DM SSI plus using lantus bid Disposition: From home with daughter
[2018-03-18 08:21] LABS: CALCIUM 9.7 mg/dl (8.5-10.1); CREATININE 0.96 mg/dl (0.60-1.20); POTASSIUM 4.3 mmol/L (3.5-5.1)
[2018-03-18] MEDS: CITALOPRAM 20 MG TAB PO SCH (08:28)
[2018-03-18] MEDS: HYOSCYAMINE SULFATE 0.125 MG SL TAB SL PRN (08:28)
[2018-03-18] MEDS: CHOLECALCIFEROL 1000 INTER.UNIT TAB PO SCH (08:28)
[2018-03-18] MEDS: PANTOprazole SOD 40 MG TAB PO SCH (08:28)
[2018-03-18] MEDS: SUCRALFATE 1 GM/10 ML UDC PO SCH ×4 (08:29→21:11)
[2018-03-18] MEDS: CYANOCOBALAMIN 500 MCG TAB (VIT B-12) PO SCH (08:29)
[2018-03-18] MEDS: CALCITRIOL 0.25 MCG CAP PO SCH (08:29)
[2018-03-18] MEDS: GABAPENTIN 300 MG CAP PO SCH ×2 (08:30→21:33)
[2018-03-18] MEDS: APIXABAN 2.5 MG TAB PO SCH ×2 (08:30→21:11)
[2018-03-18] MEDS: DICLOFENAC SOD 1% GEL 100 GM TUBE EXT PRN (08:30)
[2018-03-18] MEDS: POTASSIUM CHLORIDE 10 MEQ TABCR PO SCH (08:30)
[2018-03-18] MEDS: FERROUS SULFATE 325 MG TAB PO SCH (08:31)
[2018-03-18] MEDS: INSULIN ASPART 100 UNITS/ML 3 ML PEN SC SCH ×4 (08:39→21:13)
[2018-03-18] MEDS: POLYETHYLENE (MIRALAX) 17 GM PACK PO PRN (08:40)
[2018-03-18] MEDS: ACETAMINOPHEN 325 MG TAB PO PRN (08:40)
[2018-03-18] MEDS: NYSTATIN POWDER 15GM BTL EXT SCH ×3 (08:41→21:11)
[2018-03-18] MEDS: CLONIDINE HCL 0.1 MG TAB PO SCH (10:01)
[2018-03-18] MEDS: TRAMADOL HCL 50 MG TAB PO PRN (15:59)
[2018-03-18] MEDS ORDERED: FUROSEMIDE INJ 20 MG in SYRINGE 0 ML IV ONE (16:00)
[2018-03-18] MEDS ORDERED: METOPROLOL TARTRATE 1 MG/ML VIAL IV STA (20:09)
[2018-03-18] MEDS: CALCIUM CARBONATE 1250MG TAB PO SCH (21:11)
[2018-03-18] MEDS: ROPINIROLE HCL 0.25 MG TAB PO SCH (21:12)
[2018-03-18] MEDS: SIMVASTATIN 20 MG TAB PO SCH (21:12)
[2018-03-18] MEDS ORDERED: DILTIAZEM HCL 5 MG/ML 5 ML VIAL ONE (22:06)
[2018-03-18] MEDS ORDERED: AMIODARONE IV BOLUS / DRIP IV STA (22:34)
[2018-03-18] MEDS ORDERED: 0.2 MICRON FILTER SET 1 EA IV SCH (22:45)
[2018-03-18] MEDS ORDERED: AMIODARONE / D5W 100 ML IV SCH (22:45)
[2018-03-18] MEDS ORDERED: AMIODARONE / D5W 200 ML IV SCH (23:00)
[2018-03-19] VITALS (9 sets, daily range): BP systolic 99–131; BP diastolic 59–77; PULSE 66–155; TEMP 36.2–36.8; O2SAT 95–98; Ht 157.5 cm; Wt 85.9 kg
[2018-03-19] MEDS: ALBUT/IPRATROP 3MG/0.5MG NEB 3 ML VIAL NEB SCH ×4 (02:04→19:25)
[2018-03-19] MEDS: AMIODARONE / D5W 200 ML IV SCH ×2 (04:56→19:58)
[2018-03-19] MEDS: LEVOTHYROXINE 100 MCG TAB PO SCH (04:58)
[2018-03-19] MEDS: INSULIN ASPART 100 UNITS/ML 3 ML PEN SC SCH ×4 (08:48→21:00)
[2018-03-19] MEDS: PANTOprazole SOD 40 MG TAB PO SCH (08:51)
[2018-03-19] MEDS: GABAPENTIN 300 MG CAP PO SCH ×2 (08:51→20:01)
[2018-03-19] MEDS: SUCRALFATE 1 GM/10 ML UDC PO SCH ×4 (08:51→20:01)
[2018-03-19] MEDS: CITALOPRAM 20 MG TAB PO SCH (08:52)
[2018-03-19] MEDS: CLONIDINE HCL 0.1 MG TAB PO SCH (08:52)
[2018-03-19] MEDS: CALCITRIOL 0.25 MCG CAP PO SCH (08:52)
[2018-03-19] MEDS: POTASSIUM CHLORIDE 10 MEQ TABCR PO SCH (08:53)
[2018-03-19] MEDS: CHOLECALCIFEROL 1000 INTER.UNIT TAB PO SCH (08:53)
[2018-03-19] MEDS: APIXABAN 2.5 MG TAB PO SCH (08:54)
[2018-03-19] MEDS: FERROUS SULFATE 325 MG TAB PO SCH (08:54)
[2018-03-19] MEDS: CYANOCOBALAMIN 500 MCG TAB (VIT B-12) PO SCH (08:54)
[2018-03-19] MEDS: NYSTATIN POWDER 15GM BTL EXT SCH ×3 (08:55→20:01)
[2018-03-19 10:20] LABS: CALCIUM 9.3 mg/dl (8.5-10.1); CREATININE 0.94 mg/dl (0.60-1.20); POTASSIUM 3.8 mmol/L (3.5-5.1)
--- NOTE | 2018-03-19 10:57 | DIAGNOSTIC IMAGING REPORT ---
CHEST ONE VIEW PORTABLE CLINICAL HISTORY: right PICC tip placement COMPARISON STUDY: Chest radiograph and chest CT March 15, 2018. FINDINGS: Bilateral shoulder arthroplasties and cervical/thoracolumbar spine fusion hardware is incidentally noted. There is no pneumothorax. Lung volumes are diminished. There are small bilateral pleural effusions. Cardiomegaly is unchanged. Tip of right PICC projects over the proximal right atrium. The catheter could be withdrawn 2 cm. IMPRESSION: 1. Tip of right PICC projects over the proximal right atrium. The catheter could be withdrawn 2 cm to reach the cavoatrial junction. 2. Small bilateral pleural effusions. 3. Linear bibasilar opacities which favor atelectasis. Electronically signed by: Jake Lo M.D. 03/19/2018 10:55 AM Dictated Date/Time: 03/19/2018 10:53 AM
--- NOTE | 2018-03-19 11:42 | DIAGNOSTIC IMAGING REPORT ---
CHEST ONE VIEW PORTABLE CLINICAL HISTORY: Chest x-ray for PICC catheter placement COMPARISON STUDY: 03/19/2018 FINDINGS: The heart remains enlarged. There are bilateral parenchymal opacities statistically atelectatic. There are postsurgical changes present within the thoracolumbar spine cervical spine and both shoulders. The right-sided PICC catheter has been withdrawn slightly and is now positioned with its tip near the atriocaval junction.[ IMPRESSION: The right-sided PICC catheter is visualized. The tip is positioned near the atriocaval junction Electronically signed by: Edenilson Barrett M.D. 03/19/2018 11:40 AM Dictated Date/Time: 03/19/2018 11:39 AM
--- NOTE | 2018-03-19 15:12 | CARDIOLOGY CONSULTATION ---
DATE OF CONSULTATION: 03/19/2018 PERTINENT HISTORY: Ms. Philip is an 83-year-old white female with a complex past medical history who was admitted on 03/15/2018 with right-sided chest pain syndrome felt to be musculoskeletal in origin. The patient developed atrial fibrillation with rapid ventricular response last evening. This consultation was ordered to assist in her management. Of note, the patient is typically followed by Dr. Kelly. The patient was in her usual state of health on day of presentation when she noted tenderness to palpation in the right chest and right upper abdomen. She was evaluated in the Emergency Room and felt that it would be best for hospital admission for observation. The patient has a longstanding history of chronic respiratory failure related to COPD and restrictive lung disease. Consideration is being made for a tracheostomy as she has difficulty handling her secretions. The patient does carry history of paroxysmal atrial tachycardia; however, has never experienced atrial fibrillation. Her episode last evening was completely asymptomatic. She was placed on intravenous amiodarone and converted to sinus rhythm at approximately 7:00 a.m. this morning. Of note, she is chronically on Eliquis for her lower extremity DVTs. We have discussed conversion from intravenous to oral dosing of her amiodarone. Currently, the patient is resting comfortably in bed without complaints. PAST MEDICAL HISTORY: 1. Hypertension. 2. Left ventricular hypertrophy. 3. Diastolic dysfunction. 4. History of diastolic CHF. 5. Paroxysmal atrial tachycardia. 6. Hypercholesterolemia. 7. Orthostatic hypotension. 8. Chronic respiratory failure. 9. COPD. 10. Restrictive lung disease. 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 12. Lymphedema. 13. Chronic renal failure. 14. History of recurrent DVT. 15. Gastroparesis. 16. GERD. 17. Appendectomy. MEDICATIONS: 1. Amiodarone drip. 2. Clonidine 0.1 mg daily. 3. Eliquis 5 mg b.i.d. 4. Zocor 20 mg at bedtime. 5. Potassium 20 mEq daily. 6. Protonix 40 mg per day. 7. Iron sulfate 325 mg per day. 8. Synthroid 0.1 mg daily. 9. Prednisone 40 mg per day. 10. DuoNeb q. 6 hour. 11. Celexa 30 mg daily. 12. Neurontin 300 mg b.i.d. 13. Requip 0.5 mg daily. 14. Carafate 1 gram q.i.d. 15. Os-Misael 250 mg daily. 16. Rocaltrol 0.25 mg daily. ALLERGIES: NUMEROUS, please see list. SOCIAL HISTORY: The patient is a , but lives with her daughter. She denies tobacco or alcohol. FAMILY HISTORY: Father had an OK 50s or [address]s in Dr[address] ZARAGOZA. REVIEW OF SYSTEMS: A 10-point review of systems was negative except for that described above. PHYSICAL EXAMINATION: GENERAL: This is a well-developed, well-nourished white female, in no acute distress. VITAL SIGNS: Blood pressure is 107/66 with a regular pulse of 76. Respiratory rate is 22. The patient is afebrile at 36.3 degrees Celsius. Saturation is 90% on 2 liters nasal cannula. HEENT: Negative. Masters facies identified. NECK: Supple with full carotid upstrokes. No obvious bruits. Jugular venous pressure is difficult to assess. CARDIOVASCULAR: Reveals a regular rhythm with normal S1, S2. Heart sounds are distant. No obvious murmurs. LUNGS: No distant breath sounds, but no rales, rhonchi, or wheeze. ABDOMEN: Obese without bruits. EXTREMITIES: Reveal intact radial artery pulses bilaterally. 1+ nonpitting edema is noted in the pretibial regions. DATA: CBC notes hemoglobin of 11.6, hematocrit 35.4, white count 8.06, platelet count 180,000. Electrolytes showed a sodium of 141, potassium 3.8, chloride 102, bicarb 33, BUN 20, creatinine 0.9, glucose 125. Magnesium level is normal at 1.8. Troponin I level is undetectable, less than 0.015. EKG on presentation noted sinus rhythm with PACs and left ventricular hypertrophy and repolarization changes. EKG done last evening noted atrial fibrillation with rapid ventricular response and an inferolateral ST and T-wave abnormality. Telemetry noted conversion to sinus rhythm at 7:00 a.m. this morning. IMPRESSION: Ms. Philip was admitted with her chronic respiratory failure and an atypical chest pain syndrome. She had developed atrial fibrillation with rapid ventricular response last evening which has converted to sinus rhythm on intravenous amiodarone. Suspect that she will be intolerant of an atrial dysrhythmia in the future. Would suggest converting from IV to oral dosing. Reduced 200 mg twice daily while hospitalized, and to increase to 200 mg daily at time of discharge. PLAN: 1. Agree with use of intravenous amiodarone. 2. Convert to 200 mg b.i.d. while hospitalized. 3. Reduce the 200 mg daily at time of discharge. 4. Further recommendation pending her clinical course.
--- NOTE | 2018-03-19 16:35 | DIAGNOSTIC IMAGING REPORT ---
CT SCAN OF THE BRAIN WITHOUT IV CONTRAST CLINICAL HISTORY: Change in mental status. COMPARISON STUDY: CT of the brain dated 12/13/2017. TECHNIQUE: Unenhanced axial CT scan of the brain is performed from the vertex to the skull base. A dose lowering technique was utilized adhering to the principles of ALARA. CT DOSE: 614.27 mGy.cm FINDINGS: Brain parenchyma: There are age-related involutional changes noting moderate to advanced subcortical and periventricular microangiopathic change. There is no hemorrhage, mass effect, or evidence of acute territorial ischemia by CT criteria. Ku-white matter is preserved. No extra-axial fluid collection is seen. Ventricles, sulci, cisterns: Prominent secondary to involutional change. Intracranial vasculature: There is atherosclerotic calcification of the cavernous carotid and vertebral arteries. Calvarium: The Skeletal structures are osteopenic. There is no depressed calvarial fracture. Sinuses and mastoids: There is mucosal thickening within sphenoid sinuses. The remaining visualized paranasal sinuses are clear. There is a right mastoid effusion. The left mastoid air cells are well pneumatized. Orbits: The bony orbits are grossly intact. There are bilateral ocular lens implants. IMPRESSION: There is no hemorrhage, mass effect, or evidence of acute territorial ischemia by CT criteria. Electronically signed by: Justo Mejias M.D. 03/19/2018 4:34 PM Dictated Date/Time: 03/19/2018 4:32 PM
--- NOTE | 2018-03-19 19:59 | Pulmonary Consultation ---
History General Date of Service: Mar 19, 2018. Stated Complaint: Copd Exacerbation HPI The patient is a 83 year old female who presents to [facility] with complaints of Copd Exacerbation. The patient's primary care provider is Michael De Souza M.D.. 83-year-old female with chronic respiratory insufficiency admitted 03/15/2018 with chest pain, elevated lactic acid and chronic failure to thrive. Patient was improving on high-dose steroids but notably had an episode of rapid atrial fibrillation on 03/19/2018 requiring amiodarone control. Patient has a significantPmHx: Pulmonary embolism, sleep apnea/OHV, COPD, oxygen dependent 2- 5L, diaphragmatic insufficiency/status post fundoplication, steroid-induced myopathy, orthostatic hypotension, hypertension, sclerotic aortic valve, chronic lymphedema, paroxysmal atrial fibrillation, chronic shortness of breath , C diff positive, recurrent UTIs. Patient notes she continues to have dyspnea even at rest and her daughter at the bedside 6 notes her mother was doing better on the elevated methylprednisolone levels and seem to have increasing lethargy after there attempted to be weaned down. At this time the patient currently denies: Fever, chills, chest pain/pleurisy, palpitations, classic cardiac chest pain, B type symptoms, hemoptysis or productive sputum. Current workup VB.43/52 corrected to 7.46/43 VB.44/44 corrected to 7.48/37 Lactic Acid: 3.4--[id number] Albumin: 2.9 Procalcitonin: 0.06 CXR 03/15/18: Cardiomegaly, small bilateral pleural effusions, left midlung opacity/atelectasis CTA chest 03/15/18: no PE, chronic sm right sided pleural effusion, right sided atelectasis, stable 3.[address] abdomen pelvis 03/15/2018: Within normal limits CXR 03/19/18: tip of PICC project over the right atrium CXR 03/19/18: tip of PICC at atrial-caval junction CT head 03/19/2018: No acute changes noted Previous workup: CXR (10/21/16) bilateral costo-phrenic blunting with infiltrate vs. ateltectasis Abdominal US (10/23/16) mild YATES otherwise WNL Video swallow 11/30/2016: Within normal limits Thoracic CTA (10/20/16) compared to 10/17/16 a. No PE b. Small rt sided pleural effusion with infiltrates vs. ateltectasis c. LLL 6mm pulmonary nodule d. Lingular infiltrate e. Vascular congestion f. RLL infiltrate CT chest 12/21/2017: Small pleural effusion/right: Subtle nodular airspace opacities in the right perihilar region (personally reviewed previous CT imaging last CTA 10/02/2017: No acute changes) ABG 1) 04/14/17 7.46/42/87/29 (5L) A-a Gradient: 100 2) 01/18/17 7.50/42/68/32 (RA) A-a Gradient: 23 3) 01/14/17 7.45/45//31 (3L) A-a Gradient: 56 4) 12/01/16 7.49/37// (35%) A-a Gradient: 100 5) 11/25/16 7.49/38//28 (3L) A-a Gradient: 70 6) 11/11/16 7.51/34// (RA) A-a Gradient: 34 7) 10/23/16 7.52/// (RA) A-a Gradient: 33 8) 08/27/16 7.43/46/75/30 (1.5L) A-a Gradient: 48 9) 09/22/15 7.42/// (RA) A-a Gradient: 55 Cardiac Echo (10/21/16) a. LV: mild LVH, EF=65-70% b. RV: function WNL, TAPSE >1.5cm c. Lipomatous hypertrophy of the inter-atrial septum is noted d. IVC Sniff: WNL Echo 04/30/2016: LV: EF greater than 65%. Type 1 diastolic dysfunction. Normal wall motion Sclerotic aortic valve without significant stenosis. Echo 10/21/2016: Normal LV size and systolic function. EF 65-70%. No regional wall motion abnormalities. Mild concentric LVH. Grade 1 diastolic dysfunction. No significant valvular abnormalities. Limited Echo 11/30/2016: Normal LV size and systolic function. EF 65-70%. Estimated RVSP at the upper limits of normal at 30 mmHg. Central venous pressure normal. Cardiac catheterization 04/20/2007: No CAD Primary function studies 08/07/16 Spirometry: Within normal limits Lung lungs: Mild elevation of the residual volume Mildly decreased diffusion capacity without alveolar volume correction at 70% Spirometry (supine and sitting) 06/21/2017: Significant change in the supine and upright the FEV1 and FVC Bronchoscopy 07/06/2017 Trachea: Sav[place] dependent posterior wall mucous plugs and erythema, possible secretions Left bronchial tree: Posterior wall erythema with diffuse mucous plugs and oral secretions Right bronchial tree: Posterior wall erythema with diffuse mucous plugs oral secretions Microbiology URINE: (07/24/15) Escherichia coli (09/01/15) Enterococcus faecalis (12/08/15) Lactobacillus species (11/25/16) Citrobacter species (07/07/17) Escherichia coli (07/24/17) Escherichia coli Respiratory Bronchial washing (06/29/2010) MRSA Bronchial washing left upper lobe (01/25/16) fungal species Right lower lobe bronchial washing (06/30/16) fungal species Bronchial washing right middle lobe (11/28/16) MRSA Bronchial washing right middle (01/15/17) fungal species Bronchial washing right and left lower lobe (10/09/2017) Bordetella Bronchiseptica Blood (04/24/16) Propionibacterium acnes Skin (04/17/17) right lower extremity: Pseudomonas aeruginosa, Enterococcus faecalis C. difficile testing for 06/07/2018: Positive PmHx: 1. PE/DVT 2. COPD 3. History of pneumonia: MRSA and Bordetella Bronchiseptica 4. Paroxysmal atrial fibrillation 5. Sleep apnea/obesity hypoventilation syndrome 6. Chronic respiratory insufficiency 7. Oxygen dependence 2-5 liters 8. Chronic kidney disease stage II/III 9. Diaphragmatic insufficiency s/p fundoplication 10. Steroid induced myopathy/chronic steroid dependence 11. C diff positive 12. Allergic rhinitis 13. Anemia 14. Anxiety 15. Aortic valve sclerosis 16. Cellulitis of right upper arm 17. Chronic constipation 18. Chronic pain 19. Chronic steroid use 20. CKD (chronic kidney disease) 21. Concussion 22. Cystocele, midline 23. Depression 24. Diabetes mellitus, type 2 25. Dysphagia 26. Fibromyalgia 27. Gait instability 28. Gastroesophageal reflux disease 29. Gastroparesis 30. Generalized weakness 31. Hyperlipidemia 32. Hypertension 33. Hypothyroidism, postablative 34. Insomnia 35. Internal hemorrhoids 36. Left lumbar radiculopathy 37. Medullary carcinoma of thyroid 38. Neuromuscular disease 39. Orthostatic hypotension 40. Osteoarthritis 41. Physical deconditioning 42. Hx of Pleural effusion 43. Post concussion syndrome 44. Prolapse of vaginal cano 45. Restless legs syndrome 46. Sensorineural hearing loss of both ears 47. Solitary pulmonary nodule 48. Thyroid cancer 49. Traumatic compression fracture of T3 thoracic vertebra 50. Traumatic compression fracture of T4 thoracic vertebra 51. Tubular adenoma of colon (D12.6) 52. Ulcer of right leg (L97.919) 53. Urinary incontinence (R32) 54. Recurrence Urinary tract infection 55. Vitamin B12 deficiency 56. Vitamin D deficiency PsHx: 1. Adrenalectomy 2. Cervical atherogenesis 3. Lumbar arthrodesis 4. Breast biopsy 5. Multiple bronchoscopies 6. Hysterectomy 7. Knee arthroplasty/medial meniscus repair 8. Nerve block transforaminal epidural lumbar L4 through L5 9. Curtis-diaphragmatic plication 10. Tonsillectomy with adenoidectomy 11. Total thyroidectomy 12. Vaginal sling secondary to stress incontinence 13. Status post appendectomy Family history Mother-breast cancer Father-kidney stones, hypertension Grandmother-breast cancer Social history Alcohol: No history of use or abuse Drugs: No history of use or abuse Marital status: Tobacco: Never smoker Occupation: Retired Historian: patient, family, EMS Review of Systems Constitutional: reports: as stated in HPI Eyes: reports: no symptoms ENT: reports: no symptoms Cardiovascular: reports: as stated in HPI Respiratory: reports: as stated in HPI Gastrointestinal: reports: no symptoms Genitourinary - Female: reports: no symptoms Musculoskeletal: reports: as stated in HPI Integumentary: reports: no symptoms Neurologic: reports: no symptoms Psychiatric: reports: depression Endocrine: no symptoms Hematologic / Lymphatic: no symptoms Allergic / Immunologic: no symptoms Past Medical History Past Medical History: Please refer to HPI Past Medical History: anxiety, asthma, depression, hypothyroidism, osteoarthritis, urinary tract infection, other Past Surgical History: Please refer to HPI Past Surgical History: adenoidectomy, appendectomy, hysterectomy, orthopedic surgery, spinal surgery, thyroidectomy, TKR, tonsillectomy Family History Diabetes mellitus FH: cancer FH: gallbladder disease FH: heart disease FH: lung disease Hypertension Kidney disease or stones Please refer to HPI Social History Please refer to HPI Hx Tobacco Use In Past Year?: No Smoking Status: Never Smoker Alcohol: no current use Drug Use: none Marital status: Housing status: lives with family Occupational Status: retired Immunizations History of Influenza Vaccine: N/A Influenza Vaccine Date: Jun 18, 2012 History of Tetanus Vaccine?: Yes Tetanus Immunization Date: Mar 18, 2004 History of Pneumococcal: Yes Pneumococcal Date: May 31, 2010 History of Hepatitis B Vaccine: No History of MDRO History of MDRO: Yes Type of MDRO: MRSA Allergies Coded Allergies: Adhesives (Verified Allergy, Severe, TAPE-REDNESS, BLISTERS, 03/19/18) Pneumococcal Vaccine (Verified Allergy, Severe, SHORTNESS OF BREATH, ) Metronidazole (Verified Allergy, Intermediate, skin rash, 03/19/18) allergic to generic form Phenazopyridine (Verified Allergy, Intermediate, abdominal pain/rash, ) Erythromycin (Verified Allergy, Mild, RASH, 03/19/18) Salicylates (Verified Allergy, Unknown, pt states rash with ASA 325 but not ASA 81mg, 03/19/18) Sulfa Antibiotics (Verified Allergy, Unknown, ON MED LIST, 03/19/18) Tetracycline (Verified Allergy, Unknown, RASH, 03/19/18) Morphine (Verified Adverse Reaction, Intermediate, urinary retention - oral morphine only, 03/19/18) Diltiazem (Verified Adverse Reaction, Mild, FLUID RETENTION, 03/19/18) Metoclopramide (Verified Adverse Reaction, Mild, TREMORS, 03/19/18) Bacitracin (Verified Adverse Reaction, Unknown, "MAKES IT WORSE"-OK IF NOT OTC MEDICATION, 03/19/18) OKAY IF NOT OVER THE COUNTER MEDICATION Current Medications Reported Home Medications Medications Dose Route/Sig Max Daily Dose Days Date Category Dose Instructions Systane Ultra (Polyethylene Glycol-Propylene) 1 Renetta Renetta 1 Drops OP QID 03/15/18 Reported Spiriva Respimat (Tiotropium Bradford) 1.25 Mcg/Act Aer 2 Puff INH BID 03/15/18 Reported Requip (Ropinirole Hydrochloride) 0.5 Mg Tab 0.5 Mg PO HS 03/15/18 Reported TAKE 2 HR BEFORE HS Mucinex Ext Rel (Guaifenesin) 600 Mg Tab 1,200 Mg PO Q12 PRN 03/15/18 Reported Carafate (Sucralfate) 1 Gm/10 Ml Nicole 10 Ml PO QID 03/15/18 Reported Butal/Asa/Caff (Kbsayxnfnp-Lpreomn-Iwouganr) 1 Cap Cap 1 Cap PO Q4 PRN 03/15/18 Reported Gentamicin Sulfate/0.9% S (Gentamicin In Saline) 1 Inj Inj 2 Sprays LATASHA TID 02/19/18 Reported GENTAMYCIN 60MG IN 45 ML NASAL SOLUTION. Basaglar Kwikpen (Insulin Glargine) 100 Unit/Ml Inj 22 Units SQ QAM 02/19/18 Reported K-Tabs (Potassium Chloride) 10 Meq Tab 20 Meq PO DAILY 02/19/18 Reported D3-1000 (Cholecalciferol) 1,000 Unit Tab 1,000 Units PO DAILY 02/19/18 Reported B-12 (Cyanocobalamin) 1,000 Mcg Cap 1,000 Mcg PO QAM 02/19/18 Reported Aldactone (Spironolactone) 25 Mg Tab 25 Mg PO BID 02/05/18 Reported Prednisone 10 Mg Tab 40 Mg PO DAILY 12/22/17 Reported Eliquis (Apixaban) 5 Mg Tab 5 Mg PO BID 12/13/17 Reported Probiotic (Probiotic Product) 1 Tab Tab 1 Tab PO DAILY 12/13/17 Reported Midodrine HCl (Midodrine) 2.5 Mg Tab 2.5 Mg PO TID 12/13/17 Reported FOR B/P between 130-160 Kp Ferrous Sulfate (Ferrous Sulfate) 325 Mg Tab 325 Mg PO DAILY 12/13/17 Reported Levothyroxine Sodium 100 Mcg Tab 100 Mcg PO DAILY 12/13/17 Reported Tylenol Arthritis Ext Rel (Acetaminophen) 650 Mg Cplt 650 Mg PO Q4 PRN 12/13/17 Reported Linzess (Linaclotide) 290 Mcg Cap 290 Mcg PO DAILY PRN 10/02/17 Reported Neurontin (Gabapentin) 300 Mg Cap 300 Mg PO BID 09/19/17 Reported Citalopram Hydrobromide 20 Mg Tab 30 Mg PO DAILY 09/19/17 Reported Nystop (Nystatin (Topical)) 100,000 Unit/Gm Pow 1 Appln TOP TID 07/07/17 Reported Novolog Flexpen (Insulin Aspart) 100 Units/Ml Inj SQ QPM 07/07/17 Reported SLIDING SCALE Voltaren 1% Top Gel (Diclofenac Sodium (Topical)) 1 % Gel 1 Appln TOP QID PRN 07/07/17 Reported Dexilant (Dexlansoprazole) 60 Mg Cap 60 Mg PO QAM 07/07/17 Reported Calcitriol 0.25 Mcg Cap 0.25 Mcg PO DAILY 07/07/17 Reported TAKE WITH CALCIUM Ativan (Lorazepam) 0.5 Mg Tab 0.25-0.5 Mg PO Q6 PRN 04/13/17 Reported Melatonin 10 Mg Tab 10 Mg PO HS 04/13/17 Reported Ultram (Tramadol HCl) 50 Mg Tab 50 Mg PO Q6H PRN 02/09/17 Reported Duoneb (Ipratropium-Albuterol) 3 Ml Nebu 1 Treatment INH QID 10/20/16 Reported Calcium Carbonate 1,250 Mg Tab 2,500 Mg PO HS 02/26/16 Reported Zocor (Simvastatin) 20 Mg Tab 20 Mg PO HS 12/20/15 Reported Riboflavin 400 Mg Tab 400 Mg PO QAM 12/01/15 Reported Physical Physical Exam Vital Signs: Date Time Temp Pulse Resp B/P (MAP) Pulse Ox O2 Delivery O2 Flow Rate FiO2 03/19/18 18:55 69 16 96 Nasal Cannula 3.0 03/19/18 16:00 Nasal Cannula 3.0 03/19/18 15:23 36.4 71 18 115/77 (90) 95 Nasal Cannula 2.0 03/19/18 14:06 71 18 98 Nasal Cannula 3.0 03/19/18 12:02 36.3 76 22 107/66 (80) 98 Nasal Cannula 2.0 03/19/18 12:00 Nasal Cannula 3.0 03/19/18 08:14 36.5 18 99/59 (72) 96 Nasal Cannula 3.0 03/19/18 08:00 Nasal Cannula 3.0 03/19/18 07:09 78 18 97 Nasal Cannula 3.0 03/19/18 04:23 Nasal Cannula 3.0 03/19/18 04:18 36.2 155 17 107/69 (82) 97 Nasal Cannula 3.0 03/19/18 00:25 Nasal Cannula 3.0 03/18/18 23:57 36.6 91 22 117/78 (91) 98 Nasal Cannula 3.0 03/18/18 21:11 145 149/75 03/18/18 20:53 Nasal Cannula 3.0 General Appearance: NO APPARENT DISTRESS, uncomfortable Head: NORMOCEPHALIC, ATRAUMATIC Eyes: PERRLA, NO DISCHARGE, EOMI ENT: other (Rounded face ease) Neck: NORMAL RANGE OF MOTION, NO TENDERNESS, TRACHEA MIDLINE, NO STRIDOR Respiratory: other (Mostly clear to auscultation but notably decreased breath sounds with some mild rhonchi appreciated the right base) Cardiovasular: REGULAR RATE/RHYTHM, NORMAL S1S2, NO M/G/R, NO MURMUR Abdomen: NON TENDER, NORMAL BOWEL SOUNDS, NO REBOUND, NO MASSES, NO GUARDING Genitourinary - Female: EXTERNAL GENITALIA NORMAL Back: NORMAL INSPECTION, NO MIDLINE TENDERNESS, NO CVA TENDERNESS, NO PARAVERTEBRAL TTP Upper Extremities: NO EDEMA, other (Notable skin breakdown and some ecchymoses bilaterally) Lower Extremities: other (Bilateral 2+ pitting edema) Pulses: carotid (R) (2+), carotid (L) (2+), posterior tibial (R), posterior tibial (L) (1+) Neuro: ALERT, ORIENTED x 3, NORMAL MOTOR EXAM, NORMAL SENSATION Reflexes: biceps (R) (1+), bicpes (L) (1+), achilles (R) (1+), achilles (L) (1+ ) Babinski Testing: right (downgoing), left (downgoing) Psychiatric: flat affect Diagnostics Labs Results Past 24 Hours Test 03/18/18 20:44 03/19/18 07:34 03/19/18 09:21 03/19/18 11:35 Range/Units Bedside Glucose 182 143 157 70-90 mg/dl Sodium Level 141 136-145 mmol/L Potassium Level 3.8 3.5-5.1 mmol/L Chloride Level 102 98-107 mmol/L Carbon Dioxide Level 33 21-32 mmol/L Anion Gap 6.0 3-11 mmol/L Blood Urea Nitrogen 29 7-18 mg/dl Creatinine 0.94 0.60-1.20 mg/dl Est Creatinine Clear Calc Drug Dose 47.9 ml/min Estimated GFR () 65.9 Estimated GFR (Non- 56.9 BUN/Creatinine Ratio 30.4 10-20 Random Glucose 125 70-99 mg/dl Calcium Level 9.3 8.5-10.1 mg/dl Magnesium Level 1.8 1.8-2.4 mg/dl Test 03/19/18 15:31 03/19/18 16:35 Range/Units Venous Blood pH 7.43 7.36-7.41 Venous Blood Partial Pressure CO2 52 38.0-50.0 mmHg Venous Blood Partial Pressure O2 35 mmHg Venous Blood HCO3 34 mmol/L Venous Blood Oxygen Saturation 63.2 % Venous Blood Base Excess 8.4 mEq/L Ammonia 13.5 11-32 umol/L Bedside Glucose 236 70-90 mg/dl Diagnostic Radiology Please refer to HPI EKG Atrial fibrillation with RVR rate 150 Impression Assessment and Plan 83-year-old female with chronic respiratory insufficiency and steroid dependence admitted with atypical chest pain with an episode of atrial fibrillation with RVR: 1. Chronic respiratory insufficiency: The patient has undergone plication of the right hemidiaphragm and has chronic steroid induced myopathy with most likely diaphragmatic myopathy as well. At this time I do suggest we move forward with her plan tracheostomy but this will be dependent on anesthesia as well as Dr. Velazquez deciding if this would be an appropriate time for the patient. 2. Lactic acidosis: Patient does have a history of elevated lactic acid. Classically this would be from hypoperfused state such as shock regional hyper for fusion but there are no signs at this time of these syndromes. Other etiologies such as alcohols, carbon monoxide, sign I would, seizures her heavy exercise or less likely as well. Possible medication induced elevated lactic acid levels from beta 2 agonist or even thoracic clearly seen and dog models from chronic prednisone are steroid use are noted. As the patient is currently steroid dependent I will continue these and taper down as appropriate. I should note that beta 2 agonist at this level of dosing should not induced lactic acidosis. 3. PE/VTE: Patient has a history thromboembolic events was previously treated with Eliquis. Currently being held for possible tracheostomy. Will have to work with primary care team and ENT to evaluate proper anticoagulation. If anesthesia/ENT believe the patient is not appropriate to undergo tracheostomy at this time would reinitiate Eliquis.
[2018-03-19] MEDS: ACETAMINOPHEN 325 MG TAB PO PRN (20:01)
[2018-03-19] MEDS: CALCIUM CARBONATE 1250MG TAB PO SCH (20:01)
[2018-03-19] MEDS: SIMVASTATIN 20 MG TAB PO SCH (20:01)
[2018-03-19] MEDS: ROPINIROLE HCL 0.25 MG TAB PO SCH (20:02)
[2018-03-19] MEDS ORDERED: HEPARIN 25,000 UNIT/500ML D5W 500 ML IV SCH (20:45)
[2018-03-20] VITALS (9 sets, daily range): BP systolic 111–151; BP diastolic 58–83; PULSE 65–85; TEMP 36–37; O2SAT 95–99
[2018-03-20] MEDS: ALBUT/IPRATROP 3MG/0.5MG NEB 3 ML VIAL NEB SCH ×4 (01:27→19:39)
--- NOTE | 2018-03-20 01:40 | Progress Note ---
Subjective Date of Service: Mar 19, 2018. Subjective Pt evaluation today including: conversation w/ patient, conversation w/ family (daughter at bedside), physical exam, chart review, lab review, review of studies (CT head, chest, abd, pelvis), conversation w/ home sales consultant (ENT (Marcus), pulmonary (omid)), review of inpatient medication list Pain: denies PO Intake: poor today Voiding: incontinence tele - rapid a. fib overnight, then converted to NSR this am about 0700 pt with eyes closed entire visit daughter states she "was good up until last night then she went down hill" has been confused today per daughter received oxycodone and ativan last pm at bedtime; daughter reports she gets confused with oxycodone pt was just awake enough to state she had no pain anywhere ROS otherwise couldn't be obtained reliably Problem List Medical Problems: (1) Cervical strain Status: Acute (2) Contusion of multiple sites Status: Acute (3) COPD exacerbation Status: Acute (4) Fall Status: Acute (5) Fall from chair, initial encounter Status: Acute (6) Fatigue Status: Acute (7) Head injury Status: Acute (8) Head injury Status: Acute (9) Hip pain Status: Acute (10) Hypocalcemia Status: Acute (11) Hypoxia Status: Acute (12) Hypoxia Status: Acute (13) Lower extremity edema Status: Acute (14) PNA (pneumonia) Status: Acute (15) Pneumonia Status: Acute (16) Pneumonitis Status: Acute (17) Reactive airway disease Status: Acute (18) Right flank pain Status: Acute (19) Sepsis Status: Acute (20) Sepsis Status: Acute (21) Syncope Status: Acute (22) Traumatic compression fracture of third thoracic vertebra Status: Acute (23) Vaginal yeast infection Status: Acute (24) Weakness Status: Acute (25) Yeast vaginitis Status: Acute Review of Systems Constitutional: No fever Respiratory: No shortness of breath Cardiac: No chest pain, No orthopnea, No PND Abdomen: No pain, No nausea, No vomiting Heme: No abnormal bleeding/bruising Objective Vital Signs Date Time Temp Pulse Resp B/P (MAP) Pulse Ox O2 Delivery O2 Flow Rate FiO2 03/19/18 18:55 69 16 96 Nasal Cannula 3.0 03/19/18 16:00 Nasal Cannula 3.0 03/19/18 15:23 36.4 71 18 115/77 (90) 95 Nasal Cannula 2.0 03/19/18 14:06 71 18 98 Nasal Cannula 3.0 03/19/18 12:02 36.3 76 22 107/66 (80) 98 Nasal Cannula 2.0 03/19/18 12:00 Nasal Cannula 3.0 03/19/18 08:14 36.5 18 99/59 (72) 96 Nasal Cannula 3.0 03/19/18 08:00 Nasal Cannula 3.0 03/19/18 07:09 78 18 97 Nasal Cannula 3.0 03/19/18 04:23 Nasal Cannula 3.0 03/19/18 04:18 36.2 155 17 107/69 (82) 97 Nasal Cannula 3.0 03/19/18 00:25 Nasal Cannula 3.0 03/18/18 23:57 36.6 91 22 117/78 (91) 98 Nasal Cannula 3.0 Physical Exam General Appearance: no apparent distress, + pertinent finding (cushingnoid facies) ENT: pharynx normal Neck: no JVD Respiratory/Chest: lungs clear, no respiratory distress, no accessory muscle use, + decreased breath sounds (bases, worse on right) Cardiovascular: regular rate, rhythm, no gallop, no murmur Abdomen: normal bowel sounds, non tender, soft, no organomegaly, + distended ( mild) Extremities: no pedal edema Neurologic/Psychiatric: + pertinent finding (sleepy today; doesn't appear to have focal lack of strength issues any limb) Skin: + pertinent finding (bruises right arm, right thigh; PICC in place right arm ) Laboratory Results Last 24 Hours Test 03/19/18 07:34 03/19/18 09:21 03/19/18 11:35 03/19/18 15:31 Bedside Glucose 143 mg/dl 157 mg/dl Sodium Level 141 mmol/L Potassium Level 3.8 mmol/L Chloride Level 102 mmol/L Carbon Dioxide Level 33 mmol/L Anion Gap 6.0 mmol/L Blood Urea Nitrogen 29 mg/dl Creatinine 0.94 mg/dl Est Creatinine Clear Calc Drug Dose 47.9 ml/min Estimated GFR () 65.9 Estimated GFR (Non- 56.9 BUN/Creatinine Ratio 30.4 Random Glucose 125 mg/dl Calcium Level 9.3 mg/dl Magnesium Level 1.8 mg/dl Venous Blood pH 7.43 Venous Blood Partial Pressure CO2 52 mmHg Venous Blood Partial Pressure O2 35 mmHg Venous Blood HCO3 34 mmol/L Venous Blood Oxygen Saturation 63.2 % Venous Blood Base Excess 8.4 mEq/L Ammonia 13.5 umol/L Test 03/19/18 16:35 03/19/18 20:41 Bedside Glucose 236 mg/dl 164 mg/dl Assessment and Plan 83yo female: 1. encephalopathy - toxic from recent pain meds/benzos? brewing infectious process? stroke? other? checked ammonia - normal. checked VBG - no significant hypercarbia. CT head done - no acute process. Provide supportive care, serial exams, etc. If this persists then consider MRI brain. 2. new-onset a. fib - converted to NSR this am with amiodarone drip. Seen by cardiology - to be transitioned to oral amiodarone ultimately. Remains on anticoagulation. 3. chronic hypoxic respiratory failure - stable on home O2 amount. 4. right-sided chest/abd pain at admission - resolved, w/u negative, etiology was uncertain. 5. recommendation for trach - I spoke with Dr. Khalil and Dr. Velazquez today. Dr. Khalil has recommended trach placement due to concern she cannot handle her own secretions and is aspirating these. Dr. Velazquez has Ms. Philip on the schedule for Monday of this week. In preparation for this Monday will HOLD her eliquis and transition to heparin infusion. 6. COPD - steroid dependent; currently on 40mg/day. Wean to 30mg in 48 hours. 7. H/O DVTs - noted; remains on anticoagulation. 8. CKD stage 3 - creatinine stable. 9. Hypothyroidism - compensated; cont synthroid. 10. T2DM - controlled. 11. chronic diastolic CHF - compensated at this time. 12. right-sided elevated Hemidiaphragm - S/P Plication in the past. 13. elevated lactate level - uncertain etiology, but no hypotension or acute process to explain this. Did she have ischemic bowel at presentation that has now resolved? 14. HTN - controlled today with current meds. daughter updated at bedside time today 35 minutes Continued [facility] stay due to: inadequate po fluid intake, multiple IV medications needed, other (altered MS, need for trach) Discharge planning: uncertain
[2018-03-20 03:43] LABS: PTT PATIENT 48.3 SECONDS (21.0-31.0)
[2018-03-20 03:45] LABS: CALCIUM 8.1 mg/dl (8.5-10.1); CREATININE 0.9 mg/dl (0.60-1.20); POTASSIUM 3.3 mmol/L (3.5-5.1)
[2018-03-20] MEDS: LEVOTHYROXINE 100 MCG TAB PO SCH (06:08)
[2018-03-20] MEDS ORDERED: POTASSIUM CHLORIDE 20 MEQ TABCR PO ONE (07:35)
[2018-03-20] MEDS: AMIODARONE / D5W 200 ML IV SCH ×2 (08:02→19:17)
[2018-03-20] MEDS: INSULIN ASPART 100 UNITS/ML 3 ML PEN SC SCH ×4 (08:03→21:00)
[2018-03-20] MEDS: SUCRALFATE 1 GM/10 ML UDC PO SCH ×4 (08:06→21:47)
[2018-03-20] MEDS: NYSTATIN POWDER 15GM BTL EXT SCH ×3 (08:06→21:46)
[2018-03-20] MEDS: CHOLECALCIFEROL 1000 INTER.UNIT TAB PO SCH (08:07)
[2018-03-20] MEDS: FERROUS SULFATE 325 MG TAB PO SCH (08:07)
[2018-03-20] MEDS: CYANOCOBALAMIN 500 MCG TAB (VIT B-12) PO SCH (08:07)
[2018-03-20] MEDS: POTASSIUM CHLORIDE 10 MEQ TABCR PO SCH (08:07)
[2018-03-20] MEDS: CALCITRIOL 0.25 MCG CAP PO SCH (08:08)
[2018-03-20] MEDS: CLONIDINE HCL 0.1 MG TAB PO SCH (08:08)
[2018-03-20] MEDS: CITALOPRAM 20 MG TAB PO SCH (08:08)
[2018-03-20] MEDS: PANTOprazole SOD 40 MG TAB PO SCH (08:09)
[2018-03-20] MEDS: GABAPENTIN 300 MG CAP PO SCH ×2 (08:09→21:48)
--- NOTE | 2018-03-20 15:14 | Pulmonology Progress Note ---
Pulmonary Progress Note Date of Service Mar 20, 2018. Attending Dr. Khalil Subjective Patient notes she continues at her baseline breathing status but feels warm today. 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 Chronic Respiratory Insufficiency: Patient has undergone diaphragmatic plication as well as most likely steroid induced myopathy/progressive respiratory insufficiency. At this time I do agree with moving forward with tracheostomy and have contacted ENT physician Dr. Velazquez. 2. Lactic acidosis: Patient does have a history of elevated lactic acid. Classically this would be from hypoperfused state such as shock regional hyper for fusion but there are no signs at this time of these syndromes. Other etiologies such as alcohols, carbon monoxide, sign I would, seizures her heavy exercise or less likely as well. Possible medication induced elevated lactic acid levels from beta 2 agonist or even thoracic clearly seen and dog models from chronic prednisone are steroid use are noted. As the patient is currently steroid dependent I will continue these and taper down as appropriate. I should note that beta 2 agonist at this level of dosing should not induced lactic acidosis. 3. PE/VTE: Patient is currently on heparin drip but notably 2.5 liters positive. At this time I work for the pharmacist to move her back over to Lovenox as her GFR is 60. Data Medications: Current Inpatient Medications Medications (Trade) Dose Ordered Sig/Natasha Route Start Time Stop Time Status Last Admin Dose Admin Acetaminophen (Tylenol Tab) 650 mg Q4H PRN PO 03/15/18 18:30 04/14/18 18:29 03/19/18 20:01 650 MG Al Hydrox/Mg Hydrox/Simethicone (Maalox Max Susp) 15 ml Q4H PRN PO 03/15/18 18:30 04/14/18 18:29 Magnesium Hydroxide (Milk Of Magnesia Susp) 30 ml Q12H PRN PO 03/15/18 18:30 04/14/18 18:29 Ondansetron HCl (Zofran Inj) 4 mg Q6H PRN IV 03/15/18 18:30 04/14/18 18:29 Polyethylene (Miralax Powder Packet) 17 gm DAILY PRN PO 03/15/18 18:30 04/14/18 18:29 03/18/18 08:40 17 GM Albuterol Sulfate (Ventolin 0.083% 2.5MG/3ML Neb) 2.5 mg Q4H PRN INH 03/15/18 18:30 04/14/18 18:29 Albuterol/ Ipratropium (Duoneb) 3 ml Q6R NEB 03/15/18 21:00 04/14/18 20:59 03/20/18 13:32 3 ML Butalbital/ Aspirin/Caffeine (Fiorinal Tab/ CAP) 1 tab Q4 PRN PO 03/15/18 20:00 04/14/18 19:59 03/17/18 08:17 1 TAB Calcitriol (Rocaltrol Cap) 0.25 mcg DAILY PO 03/16/18 09:00 04/15/18 08:59 03/20/18 08:08 0.25 MCG Cholecalciferol (Vitamin D Tab) 1,000 inter.unit DAILY PO 03/16/18 09:00 04/15/18 08:59 03/20/18 08:07 1,000 INTER.UNIT Citalopram Hydrobromide (celeXA TAB) 30 mg DAILY PO 03/16/18 09:00 04/15/18 08:59 03/20/18 08:08 30 MG Diclofenac Sodium (Voltaren 1% Top Gel) 1 appln QID PRN EXT 03/15/18 19:30 04/14/18 19:29 03/18/18 08:30 1 APPLN Gabapentin (Neurontin Cap) 300 mg BID PO 03/15/18 21:00 04/14/18 20:59 03/20/18 08:09 300 MG Levothyroxine Sodium (Synthroid Tab) 100 mcg DAILYBB PO 03/16/18 06:00 04/15/18 06:59 03/20/18 06:08 100 MCG Lorazepam (Ativan Tab) 0.25 mg for mild anxiety/ sl... Q6 PRN PO 03/15/18 18:30 04/14/18 18:29 Future Hold 03/18/18 21:12 0.25 MG Nystatin (Mycostatin Powder) 1 appln TID EXT 03/15/18 21:00 04/14/18 20:59 03/20/18 14:21 1 APPLN Ropinirole HCl (Requip Tab) 0.5 mg HS PO 03/15/18 21:00 04/14/18 20:59 03/19/18 20:02 0.5 MG Simvastatin (Zocor Tab) 20 mg HS PO 03/15/18 21:00 04/14/18 20:59 03/19/18 20:01 20 MG Sucralfate (Carafate Susp) 1 gm QID PO 03/15/18 21:00 04/14/18 20:59 03/20/18 12:04 1 GM Tramadol HCl (Ultram Tab) 50 mg Q6H PRN PO 03/15/18 18:30 04/14/18 18:29 03/18/18 15:59 50 MG Apixaban (Eliquis Tab) 5 mg BID PO 03/15/18 21:00 04/14/18 20:59 Future Hold 03/19/18 08:54 5 MG Calcium Carbonate (oS-Misael 500 TAB) 2,500 mg HS PO 03/15/18 21:00 04/14/18 20:59 03/19/18 20:01 2,500 MG Cyanocobalamin (Vitamin B-12 Tab) 1,000 mcg QAM PO 03/16/18 09:00 04/15/18 08:59 03/20/18 08:07 1,000 MCG Pantoprazole Sodium (Protonix Tab) 40 mg QAM PO 03/16/18 09:00 04/15/18 08:59 03/20/18 08:09 40 MG Ferrous Sulfate (Feosol Tab) 325 mg DAILY PO 03/16/18 09:00 04/15/18 08:59 03/20/18 08:07 325 MG Miscellaneous Information (Order Awaiting Action) 1 ea QS N/A 03/16/18 00:00 04/15/18 00:00 03/18/18 18:49 1 EA Potassium Chloride (Klor-Con M10) 20 meq DAILY PO 03/16/18 09:00 04/15/18 08:59 03/20/18 08:07 20 MEQ Miscellaneous Information (Order Awaiting Action) 1 ea QS N/A 03/16/18 00:00 04/15/18 00:00 03/18/18 18:49 1 EA Miscellaneous Information (Order Awaiting Action) 1 ea QS N/A 03/16/18 00:00 04/15/18 00:00 03/18/18 18:48 1 EA Insulin Aspart (novoLOG ASPART) SLIDING SCALE If C... ACHS SC 03/15/18 21:00 04/14/18 20:59 03/20/18 12:03 6 UNITS Glucose (Glucose 40% Gel) 15-30 GRAMS 15 GRAMS... UD PRN PO 03/15/18 19:00 04/14/18 18:59 Glucose (Glucose Chew Tab) 4-8 Tablets 4 Tabl... UD PRN PO 03/15/18 19:00 04/14/18 18:59 Dextrose (Dextrose 50% 50ML Syringe) 25-50ML 25ML FOR ... UD PRN IV 03/15/18 19:00 04/14/18 18:59 Glucagon (Glucagon Inj) 1 mg UD PRN SQ 03/15/18 19:00 04/14/18 18:59 Carbohydrates (Carbohydrates For Hypoglycemia) 15-30 GRAMS 15 grams if BSG 54-69... UD PRN PO 03/15/18 19:00 04/14/18 18:59 Clonidine HCl (Catapres Tab) 0.1 mg QAM PO 03/18/18 09:00 04/17/18 08:59 03/20/18 08:08 0.1 MG Prednisone (PredniSONE TAB) 40 mg DAILY PO 03/18/18 09:00 04/17/18 08:59 03/20/18 08:09 40 MG Amiodarone HCL/ Dextrose 200 ml @ 16.7 mls/hr [id number] IV 03/19/18 05:00 04/18/18 04:59 03/20/18 08:02 16.7 MLS/HR Heparin Sodium/ Dextrose 500 ml @ 23 mls/hr [id number] IV 03/19/18 20:45 04/18/18 20:44 03/19/18 21:39 23 MLS/HR Heparin Sodium (Porcine) (Heparin 10 Unit/ ml 5 ml Flush) 5 ml PRN PRN FLUSH 03/20/18 00:30 04/19/18 00:29 I & O: 24-Hour Column 03/21/18 08:00 Intake Total 321 ml Output Total 150 ml Balance 171 ml Vital Signs: Date Time Temp Pulse Resp B/P (MAP) Pulse Ox O2 Delivery O2 Flow Rate FiO2 03/20/18 13:32 85 18 98 Nasal Cannula 5.0 03/20/18 12:00 Nasal Cannula 3.0 03/20/18 11:42 36.7 79 18 111/68 (82) 95 Nasal Cannula 03/20/18 08:01 36.6 75 16 138/67 (90) 96 Nasal Cannula 03/20/18 08:00 Nasal Cannula 3.0 03/20/18 06:56 70 16 98 Nasal Cannula 3.0 03/20/18 04:11 36.0 72 22 151/70 (97) 99 Nasal Cannula 3.0 03/20/18 04:00 Nasal Cannula 3.0 03/20/18 01:27 67 14 97 Nasal Cannula 3.0 03/19/18 23:59 Nasal Cannula 3.0 03/19/18 23:52 36.6 66 19 131/70 (90) 98 Nasal Cannula 3.0 03/19/18 20:00 36.8 77 16 122/60 (80) 95 Nasal Cannula 3.0 03/19/18 20:00 Nasal Cannula 3.0 03/19/18 18:55 69 16 96 Nasal Cannula 3.0 03/19/18 16:00 Nasal Cannula 3.0 03/19/18 15:23 36.4 71 18 115/77 (90) 95 Nasal Cannula 2.0 Laboratory Results: Last 24 Hours Test 03/19/18 15:31 7/2/18 16:35 03/19/18 20:41 03/20/18 03:17 Venous Blood pH 7.43 Venous Blood Partial Pressure CO2 52 mmHg Venous Blood Partial Pressure O2 35 mmHg Venous Blood HCO3 34 mmol/L Venous Blood Oxygen Saturation 63.2 % Venous Blood Base Excess 8.4 mEq/L Ammonia 13.5 umol/L Bedside Glucose 236 mg/dl 164 mg/dl Activated Partial Thromboplast Time 48.3 SECONDS Partial Thromboplastin Ratio 1.9 Sodium Level 144 mmol/L Potassium Level 3.3 mmol/L Chloride Level 102 mmol/L Carbon Dioxide Level 37 mmol/L Anion Gap 5.0 mmol/L Blood Urea Nitrogen 25 mg/dl Creatinine 0.90 mg/dl Est Creatinine Clear Calc Drug Dose 50.0 ml/min Estimated GFR () 69.5 Estimated GFR (Non- 60.0 BUN/Creatinine Ratio 27.5 Random Glucose 127 mg/dl Calcium Level 8.1 mg/dl Test 03/20/18 07:19 03/20/18 11:24 Bedside Glucose 134 mg/dl 231 mg/dl
[2018-03-20] MEDS: ENOXAPARIN 80 MG/0.8 ML SYR SQ SCH (16:18)
--- NOTE | 2018-03-20 19:07 | Cardiology Follow-Up ---
Subjective Date of Service: Mar 20, 2018. Pt evaluation today including: conversation w/ patient, physical exam, chart review, lab review, review of studies, review of inpatient medication list, conversation w/ attending History of Present Illness Mrs. Philip states that she is short of breath intermittently in any position. She has pain throughout her entire body, including right-sided chest pain. She overall does not feel well. She denies syncope but does have occasional lightheadedness. No reported bleeding. Review of systems: As above. Review of Systems Respiratory: No shortness of breath Cardiac: No chest pain, No orthopnea, No PND Medications Current Inpatient Medications Medications (Trade) Dose Ordered Sig/Natasha Route Start Time Stop Time Status Last Admin Dose Admin Acetaminophen (Tylenol Tab) 650 mg Q4H PRN PO 03/15/18 18:30 04/14/18 18:29 03/19/18 20:01 650 MG Al Hydrox/Mg Hydrox/Simethicone (Maalox Max Susp) 15 ml Q4H PRN PO 03/15/18 18:30 04/14/18 18:29 Magnesium Hydroxide (Milk Of Magnesia Susp) 30 ml Q12H PRN PO 03/15/18 18:30 04/14/18 18:29 Ondansetron HCl (Zofran Inj) 4 mg Q6H PRN IV 03/15/18 18:30 04/14/18 18:29 Polyethylene (Miralax Powder Packet) 17 gm DAILY PRN PO 03/15/18 18:30 04/14/18 18:29 03/18/18 08:40 17 GM Albuterol Sulfate (Ventolin 0.083% 2.5MG/3ML Neb) 2.5 mg Q4H PRN INH 03/15/18 18:30 04/14/18 18:29 Albuterol/ Ipratropium (Duoneb) 3 ml Q6R NEB 03/15/18 21:00 04/14/18 20:59 03/20/18 13:32 3 ML Butalbital/ Aspirin/Caffeine (Fiorinal Tab/ CAP) 1 tab Q4 PRN PO 03/15/18 20:00 04/14/18 19:59 03/17/18 08:17 1 TAB Calcitriol (Rocaltrol Cap) 0.25 mcg DAILY PO 03/16/18 09:00 7/29/18 08:59 03/20/18 08:08 0.25 MCG Cholecalciferol (Vitamin D Tab) 1,000 inter.unit DAILY PO 03/16/18 09:00 04/15/18 08:59 03/20/18 08:07 1,000 INTER.UNIT Citalopram Hydrobromide (celeXA TAB) 30 mg DAILY PO 03/16/18 09:00 04/15/18 08:59 03/20/18 08:08 30 MG Diclofenac Sodium (Voltaren 1% Top Gel) 1 appln QID PRN EXT 03/15/18 19:30 04/14/18 19:29 03/18/18 08:30 1 APPLN Gabapentin (Neurontin Cap) 300 mg BID PO 03/15/18 21:00 04/14/18 20:59 03/20/18 08:09 300 MG Levothyroxine Sodium (Synthroid Tab) 100 mcg DAILYBB PO 03/16/18 06:00 04/15/18 06:59 03/20/18 06:08 100 MCG Lorazepam (Ativan Tab) 0.25 mg for mild anxiety/ sl... Q6 PRN PO 03/15/18 18:30 04/14/18 18:29 Future Hold 03/18/18 21:12 0.25 MG Nystatin (Mycostatin Powder) 1 appln TID EXT 03/15/18 21:00 04/14/18 20:59 03/20/18 14:21 1 APPLN Ropinirole HCl (Requip Tab) 0.5 mg HS PO 03/15/18 21:00 04/14/18 20:59 03/19/18 20:02 0.5 MG Simvastatin (Zocor Tab) 20 mg HS PO 03/15/18 21:00 04/14/18 20:59 03/19/18 20:01 20 MG Sucralfate (Carafate Susp) 1 gm QID PO 03/15/18 21:00 04/14/18 20:59 03/20/18 12:04 1 GM Tramadol HCl (Ultram Tab) 50 mg Q6H PRN PO 03/15/18 18:30 04/14/18 18:29 03/18/18 15:59 50 MG Apixaban (Eliquis Tab) 5 mg BID PO 03/15/18 21:00 04/14/18 20:59 Future Hold 03/19/18 08:54 5 MG Calcium Carbonate (oS-Misael 500 TAB) 2,500 mg HS PO 03/15/18 21:00 04/14/18 20:59 03/19/18 20:01 2,500 MG Cyanocobalamin (Vitamin B-12 Tab) 1,000 mcg QAM PO 03/16/18 09:00 04/15/18 08:59 03/20/18 08:07 1,000 MCG Pantoprazole Sodium (Protonix Tab) 40 mg QAM PO 03/16/18 09:00 04/15/18 08:59 03/20/18 08:09 40 MG Ferrous Sulfate (Feosol Tab) 325 mg DAILY PO 03/16/18 09:00 04/15/18 08:59 03/20/18 08:07 325 MG Miscellaneous Information (Order Awaiting Action) 1 ea QS N/A 03/16/18 00:00 04/15/18 00:00 03/18/18 18:49 1 EA Potassium Chloride (Klor-Con M10) 20 meq DAILY PO 03/16/18 09:00 04/15/18 08:59 03/20/18 08:07 20 MEQ Miscellaneous Information (Order Awaiting Action) 1 ea QS N/A 03/16/18 00:00 04/15/18 00:00 03/18/18 18:49 1 EA Miscellaneous Information (Order Awaiting Action) 1 ea QS N/A 03/16/18 00:00 04/15/18 00:00 03/18/18 18:48 1 EA Insulin Aspart (novoLOG ASPART) SLIDING SCALE If C... ACHS SC 03/15/18 21:00 04/14/18 20:59 03/20/18 18:11 4 UNITS Glucose (Glucose 40% Gel) 15-30 GRAMS 15 GRAMS... UD PRN PO 03/15/18 19:00 04/14/18 18:59 Glucose (Glucose Chew Tab) 4-8 Tablets 4 Tabl... UD PRN PO 03/15/18 19:00 04/14/18 18:59 Dextrose (Dextrose 50% 50ML Syringe) 25-50ML 25ML FOR ... UD PRN IV 03/15/18 19:00 04/14/18 18:59 Glucagon (Glucagon Inj) 1 mg UD PRN SQ 03/15/18 19:00 04/14/18 18:59 Carbohydrates (Carbohydrates For Hypoglycemia) 15-30 GRAMS 15 grams if BSG 54-69... UD PRN PO 03/15/18 19:00 04/14/18 18:59 Clonidine HCl (Catapres Tab) 0.1 mg QAM PO 03/18/18 09:00 04/17/18 08:59 03/20/18 08:08 0.1 MG Prednisone (PredniSONE TAB) 40 mg DAILY PO 03/18/18 09:00 04/17/18 08:59 03/20/18 08:09 40 MG Amiodarone HCL/ Dextrose 200 ml @ 16.7 mls/hr [id number] IV 03/19/18 05:00 04/18/18 04:59 03/20/18 08:02 16.7 MLS/HR Heparin Sodium (Porcine) (Heparin 10 Unit/ ml 5 ml Flush) 5 ml PRN PRN FLUSH 03/20/18 00:30 04/19/18 00:29 Enoxaparin Sodium (Lovenox Inj) 80 mg Q12 SQ 03/20/18 16:00 04/19/18 20:59 Future Hold 03/20/18 16:18 80 MG Miscellaneous (Stop Order) 1 ea ONE ONCE N/A 03/22/18 20:00 03/22/18 20:01 Objective Vital Signs Past 12 Hours Date Time Temp Pulse Resp B/P (MAP) Pulse Ox O2 Delivery O2 Flow Rate FiO2 03/20/18 16:40 36.9 80 20 128/74 (92) 98 Nasal Cannula 3.0 03/20/18 16:00 Nasal Cannula 3.0 03/20/18 13:32 85 18 98 Nasal Cannula 5.0 03/20/18 12:00 Nasal Cannula 3.0 03/20/18 11:42 36.7 79 18 111/68 (82) 95 Nasal Cannula 03/20/18 08:01 36.6 75 16 138/67 (90) 96 Nasal Cannula 03/20/18 08:00 Nasal Cannula 3.0 Last Recorded Weight-Kilograms: 80.900 Intake & Output 8-Hour Column 03/20/18 03/21/18 03/21/18 16:00 00:00 08:00 Intake Total 321 ml Output Total 150 ml Balance 171 ml 24-Hour Column 03/21/18 08:00 Intake Total 321 ml Output Total 150 ml Balance 171 ml Physical Exam Gen.: No acute distress. Alert. HEENT: Anicteric sclera. Neck: Thick neck. Cannot appreciate JVD. Cardiac: No ventricular heave. Regular rate and rhythm. Normal S1-S2. No murmurs , rubs, or gallops. Pulmonary: Bibasilar crackles, otherwise clear. Abdomen: Soft, nondistended, with normoactive bowel sounds. No bruits noted. Abdominal tenderness upon palpation. Extremities: 2+ radial pulses bilaterally. 2+ posterior tibialis pulses bilaterally. No significant pitting edema or cyanosis. Data Laboratory Results: Last 24 Hours Test 03/19/18 20:41 03/20/18 00:00 03/20/18 03:17 03/20/18 07:19 Bedside Glucose 164 mg/dl 134 mg/dl Activated Partial Thromboplast Time 48.3 SECONDS Partial Thromboplastin Ratio 1.9 Sodium Level 144 mmol/L Potassium Level 3.3 mmol/L Chloride Level 102 mmol/L Carbon Dioxide Level 37 mmol/L Anion Gap 5.0 mmol/L Blood Urea Nitrogen 25 mg/dl Creatinine 0.90 mg/dl Est Creatinine Clear Calc Drug Dose 50.0 ml/min Estimated GFR () 69.5 Estimated GFR (Non- 60.0 BUN/Creatinine Ratio 27.5 Random Glucose 127 mg/dl Calcium Level 8.1 mg/dl Test 03/20/18 11:24 03/20/18 16:20 03/20/18 18:35 03/20/18 18:36 Bedside Glucose 231 mg/dl 196 mg/dl Erythrocyte Sedimentation Rate 2 mm/hr Telemetry personally reviewed: She remains in sinus rhythm. Chart reviewed. Assessment and Plan ASSESSMENT/PLAN: 1. Paroxysmal atrial fibrillation: She may have been mildly symptomatic with palpitations. She converted while on amiodarone drip. She has had issues with orthostatic symptoms in the past and therefore anti rhythmic approach may be reasonable to continue. Will stop IV amiodarone and replace with amiodarone 200 mg 3 times daily. After a total of 10 days of loading dose, including intravenous initiation, would recommend 200 mg once daily. She is already anticoagulated for DVT in the past. Agree with anticoagulation for stroke risk reduction. TSH ordered while on amiodarone as she has not had a recent TSH noted in her electronic record. 2. Shortness of breath: She has documented pulmonary issues and pulmonology is following along. Tracheostomy has been recommended by Dr. Khalil and is pending for later this week. Would recommend that her net fluid balance remain relatively even. 3. Orthostatic hypotension: This has been a chronic issue. Her blood pressure is well controlled currently. 4. Plan of care has been discussed with Dr. Lopes of the primary hospitalist service. Please call with any other questions or concerns. ECG ordered for tomorrow.
[2018-03-20 19:08] LABS: ALBUMIN 2.7 gm/dl (3.4-5.0); TOTAL PROTEIN 5.1 gm/dl (6.4-8.2)
--- NOTE | 2018-03-20 21:17 | DIAGNOSTIC IMAGING REPORT ---
GALLBLADDER-ABD LIMITED CLINICAL HISTORY: ruq abd pain, lactic acidosis; eval for cholecystititis pain TECHNIQUE: Ultrasound COMPARISON STUDY: 09/20/2017 FINDINGS: Normal gallbladder. No shadowing gallstones. Common bile duct 4 mm. Fatty infiltration of liver. Pancreas and right kidney are unremarkable. IMPRESSION: 1. Normal gallbladder. 2. Fatty infiltration of liver. The above report was generated using voice recognition software. It may contain grammatical, syntax or spelling errors. Electronically signed by: Vignesh Kim M.D. 03/20/2018 9:16 PM Dictated Date/Time: 03/20/2018 9:15 PM
[2018-03-20] MEDS: AMIODARONE 200 MG TAB PO SCH (21:47)
[2018-03-20] MEDS: SIMVASTATIN 20 MG TAB PO SCH (21:48)
[2018-03-20] MEDS: ROPINIROLE HCL 0.25 MG TAB PO SCH (21:48)
[2018-03-20] MEDS: CALCIUM CARBONATE 1250MG TAB PO SCH (21:49)
--- NOTE | 2018-03-20 22:15 | Progress Note ---
Subjective Date of Service: Mar 20, 2018. Subjective Pt evaluation today including: conversation w/ patient, conversation w/ family (daughter by phone), physical exam, chart review, lab review, review of studies (RUQ u/s, etc), conversation w/ computer consultant (cardiology, general surgery), review of inpatient medication list Pain: abdomen, RUQ region PO Intake: fair at best Voiding: christian catheter in place tele stable overnight throughout the visit she had her eyes closed, was moaning and grunting when asked what was wrong she said multiple times "I just don't feel good" she reported bodywide myalgias but no arthralgias, feeling flushed, and simply having no energy she reported poor appetite when asked if eating made her abdomen feel worse she stated "yes" denied any vomiting also reported "feeling short of breath" but not any worse than normal Problem List Medical Problems: (1) Cervical strain Status: Acute (2) Contusion of multiple sites Status: Acute (3) COPD exacerbation Status: Acute (4) Fall Status: Acute (5) Fall from chair, initial encounter Status: Acute (6) Fatigue Status: Acute (7) Head injury Status: Acute (8) Head injury Status: Acute (9) Hip pain Status: Acute (10) Hypocalcemia Status: Acute (11) Hypoxia Status: Acute (12) Hypoxia Status: Acute (13) Lower extremity edema Status: Acute (14) PNA (pneumonia) Status: Acute (15) Pneumonia Status: Acute (16) Pneumonitis Status: Acute (17) Reactive airway disease Status: Acute (18) Right flank pain Status: Acute (19) Sepsis Status: Acute (20) Sepsis Status: Acute (21) Syncope Status: Acute (22) Traumatic compression fracture of third thoracic vertebra Status: Acute (23) Vaginal yeast infection Status: Acute (24) Weakness Status: Acute (25) Yeast vaginitis Status: Acute Review of Systems Constitutional: + chills, + fatigue, No fever Respiratory: + cough, + dyspnea at rest Cardiac: No chest pain Abdomen: + pain, No vomiting Musculoskeletal: + muscle pain, No joint pain, No swelling Female : + dysuria Objective Vital Signs Date Time Temp Pulse Resp B/P (MAP) Pulse Ox O2 Delivery O2 Flow Rate FiO2 03/20/18 19:43 37.0 79 18 123/83 (96) 98 Nasal Cannula 3.0 03/20/18 16:40 36.9 80 20 128/74 (92) 98 Nasal Cannula 3.0 03/20/18 16:00 Nasal Cannula 3.0 03/20/18 13:32 85 18 98 Nasal Cannula 5.0 03/20/18 12:00 Nasal Cannula 3.0 03/20/18 11:42 36.7 79 18 111/68 (82) 95 Nasal Cannula 03/20/18 08:01 36.6 75 16 138/67 (90) 96 Nasal Cannula 03/20/18 08:00 Nasal Cannula 3.0 03/20/18 06:56 70 16 98 Nasal Cannula 3.0 03/20/18 04:11 36.0 72 22 151/70 (97) 99 Nasal Cannula 3.0 03/20/18 04:00 Nasal Cannula 3.0 03/20/18 01:27 67 14 97 Nasal Cannula 3.0 03/19/18 23:59 Nasal Cannula 3.0 03/19/18 23:52 36.6 66 19 131/70 (90) 98 Nasal Cannula 3.0 Physical Exam General Appearance: + mild distress (moaning, looks ill, eyes closed but answering questions) ENT: pharynx normal Neck: no JVD Respiratory/Chest: no respiratory distress, no accessory muscle use, + decreased breath sounds (right base), + crackles (left base) Cardiovascular: regular rate, rhythm, no gallop, no murmur Abdomen: normal bowel sounds, soft, no organomegaly, + tenderness (RUQ, moderate) Extremities: no pedal edema, + pertinent finding (no joint synovitis of any joint of hands, knees, wrists, elbows, etc) Neurologic/Psychiatric: alert, + disoriented (mild), + pertinent finding (mild proximal muscle weakness of upper extremities with trying to raise her arms) Skin: + rash (erythema on back, upper) Laboratory Results Last 24 Hours Test 03/20/18 00:00 03/20/18 03:17 03/20/18 07:19 03/20/18 11:24 Urine Color YELLOW Urine Appearance CLEAR Urine pH 6.5 Urine Specific [place] 1.019 Urine Protein NEG Urine Glucose (UA) 1+ Urine Ketones NEG Urine Occult Blood TRACE Urine Nitrite NEG Urine Bilirubin NEG Urine Urobilinogen NEG Urine Leukocyte Esterase SMALL Urine WBC (Auto) 5-10 /hpf Urine RBC (Auto) 0-4 /hpf Urine Hyaline Casts (Auto) 1-5 /lpf Urine Epithelial Cells (Auto) >30 /lpf Urine Bacteria (Auto) NEG Activated Partial Thromboplast Time 48.3 SECONDS Partial Thromboplastin Ratio 1.9 Sodium Level 144 mmol/L Potassium Level 3.3 mmol/L Chloride Level 102 mmol/L Carbon Dioxide Level 37 mmol/L Anion Gap 5.0 mmol/L Blood Urea Nitrogen 25 mg/dl Creatinine 0.90 mg/dl Est Creatinine Clear Calc Drug Dose 50.0 ml/min Estimated GFR () 69.5 Estimated GFR (Non- 60.0 BUN/Creatinine Ratio 27.5 Random Glucose 127 mg/dl Calcium Level 8.1 mg/dl Bedside Glucose 134 mg/dl 231 mg/dl Test 03/20/18 16:20 03/20/18 18:35 03/20/18 18:36 03/20/18 20:15 Bedside Glucose 196 mg/dl 132 mg/dl Erythrocyte Sedimentation Rate 2 mm/hr Lactic Acid Level 2.5 mmol/L Total Bilirubin 0.4 mg/dl Direct Bilirubin 0.1 mg/dl Aspartate Amino Transf (AST/SGOT) 20 U/L Alanine Aminotransferase (ALT/SGPT) 40 U/L Alkaline Phosphatase 46 U/L C-Reactive Protein 0.52 mg/dl Total Protein 5.1 gm/dl Albumin 2.7 gm/dl Lipase 154 U/L Thyroid Stimulating Hormone (TSH) 1.490 uIu/ml Assessment and Plan 83yo female: 1. encephalopathy - improved from yesterday. Previous exam - patient was lethargic; today she is awake, following commands, answering questions, voicing concerns. Suspect it was toxic from recent pain meds/benzos but I cannot exclude metabolic process. CT head, ammonia, VBG without identifiable cause of her delirium. 2. new-onset a. fib - converted to NSR and has remained in NSR with amiodarone drip. Appreciate cardiology consultation - drip to be transitioned to oral amiodarone 200mg BID. 3. abdominal pain with lactic acidosis - I am uncertain of the etiology of her pain. 03/15/[address] without pathology. Since much of her pain today is RUQ will obtain RUQ u/s. If the gall bladder appears normal then will repeat her CT abd/pelvis looking for evidence of ischemia. I spoke with gen surg, Dr. Hurd, who will formally consult in am. Treat pain in meantime. LFTs, lipase, sed rate, and crp are reassuring but don't rule out all entities. 4. chronic hypoxic respiratory failure - stable on home O2 amount. No evidence of complicating pneumonia at this time. 5. right-sided chest/abd pain at admission - etiology uncertain; ACS was ruled out; PE was ruled out. See #3 above. 6. ?UTI - send u/a and urine cx; start abx if needed. 7. recommendation for trach - I spoke with Dr. Khalil and Dr. Velazquez yesterday. Dr. Khalil has recommended trach placement due to concern she cannot handle her own secretions and is aspirating these. Dr. Velazquez has Ms. Philip on the schedule for Monday of this week. In preparation for this Monday will HOLD her eliquis and use lovenox at therapeutic dosing until then. 7. COPD - steroid dependent; currently on 40mg/day. Wean to 30mg tomorrow. Could prednisone be masking an intra-abdominal process??? 8. H/O DVTs - noted; remains on anticoagulation. 9. CKD stage 3 - creatinine stable. 10. Hypothyroidism - compensated; cont synthroid. 11. T2DM - controlled. 12. chronic diastolic CHF - compensated at this time. 13. right-sided elevated Hemidiaphragm - S/P Plication in the past. 14. elevated lactate level - uncertain etiology, but no hypotension or obvious acute process to explain this. See discussion above in abdominal pain section. 15. HTN - controlled with current meds. total time today about 50 minutes reviewing care plan w/ consultants, speaking with daughter, ordering tests, etc Continued [facility] stay due to: inadequate po fluid intake, inadequate oral pain control, ambulation difficulties, multiple IV medications needed, other ( altered MS, need for trach) Discharge planning: uncertain
[2018-03-20] MEDS ORDERED: CEFTRIAXONE SOD INJ 2,000 MG in DEXTROSE 5% 50ML 50 ML IV SCH (22:30)
[2018-03-20] MEDS ORDERED: AMIODARONE DRIP - STOP ORDER ONE (23:00)
[2018-03-21] VITALS (9 sets, daily range): BP systolic 106–154; BP diastolic 60–82; PULSE 76–86; TEMP 36.7–37; O2SAT 96–100
[2018-03-21] MEDS: ALBUT/IPRATROP 3MG/0.5MG NEB 3 ML VIAL NEB SCH ×4 (01:51→19:21)
[2018-03-21 05:18] LABS: HEMATOCRIT 33.2 % (37-47); HEMOGLOBIN 10.5 g/dL (12.0-16.0); MEAN CELL VOLUME 96.5 fL (80-100); MEAN CORPUSCULAR HEMOGLOBIN 30.5 pg (25-34); MEAN CORPUSCULAR HGB CONC 31.6 g/dl (32-36); MEAN PLATELET VOLUME 10.6 fL (7.4-10.4); NUCLEATED RED BLOOD CELL ABS 0.02 K/uL (0-0); PLATELET COUNT 135 K/uL (130-400); RED CELL DISTRIBUTION WIDTH CV 16.6 % (11.5-14.5); RED CELL DISTRIBUTION WIDTH SD 58.6 fL (36.4-46.3); WHITE BLOOD COUNT 4.07 K/uL (4.8-10.8)
--- NOTE | 2018-03-21 05:33 | DIAGNOSTIC IMAGING REPORT ---
ABD/PELVIS IV AND ORAL CONT CLINICAL HISTORY: 83 years-old Female presenting with Abdominal Pain, elevated lactate. TECHNIQUE: Multidetector CT of the abdomen and pelvis was performed after the administration of oral and intravenous contrast. IV contrast: 92 mL of Optiray 320. A dose lowering technique was used consistent with the principles of ALARA (as low as reasonably achievable). COMPARISON: 03/15/2018. CT DOSE (mGy.cm): The estimated cumulative dose is 1432.91. FINDINGS: [employer] topogram: Extensive thoracolumbar fusion hardware. External leads overlie the upper abdomen. Surgical clips project over the right upper quadrant. Lung bases: Peribronchovascular and dependent consolidation and volume loss in the lower lobes. Patchy groundglass densities also noted not limited to a dependent distribution. No interlobular septal thickening. Multichamber enlargement of the heart. Coronary artery and aortic valve calcification. Small right and trace left pleural effusions. Pleural effusion on the right may be loculated. Liver: Mildly macronodular contour of the liver. Able appearance of the centrally hypodense and peripherally nodular enhancing 2 cm lesion in the right hepatic lobe, suggestive of a benign hemangioma. Biliary: No intrahepatic or extrahepatic biliary ductal dilatation. Normal gallbladder. Pancreas: Mild parenchymal atrophy. Spleen: Normal. Adrenal glands: Postsurgical changes of right adrenalectomy. Kidneys and ureters: Normal. No hydronephrosis. Bladder: Normal. Pelvic organs: Uterus surgically absent. Bowel: Moderate stool burden throughout mildly distended colon. No bowel obstruction. No pneumatosis. No bowel wall thickening. Peritoneal cavity: No free fluid or intraperitoneal gas. Lymph nodes: No enlarged lymph nodes in the abdomen or pelvis. Vasculature: Atherosclerosis of the normal caliber abdominal aorta. IVC patent. Abdominal wall: Small fat-containing umbilical hernia. Abdominal wall laxity. Musculoskeletal: Extensive thoracolumbar fusion hardware with laminectomy defects. Degenerative changes of the spine. Multiple old right rib fractures. Osteopenia. IMPRESSION: 1. Peribronchovascular and dependent consolidation most likely atelectasis. However, superimposed patchy groundglass opacity may imply small airways disease, mild edema, or less likely an infectious etiology. 2. No acute intra-abdominal pathology. No evidence of bowel ischemia. 3. Findings suggest constipation. 4. Postsurgical changes of right adrenalectomy. Electronically signed by: Jorge Villafana M.D. 03/21/2018 5:32 AM Dictated Date/Time: 03/21/2018 5:20 AM
[2018-03-21 05:35] LABS: CALCIUM 7.7 mg/dl (8.5-10.1); CREATININE 0.9 mg/dl (0.60-1.20); POTASSIUM 3.4 mmol/L (3.5-5.1)
[2018-03-21] MEDS: LEVOTHYROXINE 100 MCG TAB PO SCH (05:58)
[2018-03-21 06:13] LABS: BASO % 0.2 %; BASO ABS # 0.01 K/uL (0-0.2); EOS ABS # 0.04 K/uL (0-0.5); IG# 0.22 K/uL (0.00-0.02); LYMPH ABS # 0.61 K/uL (1.2-3.4); MONO % 7.1 %; MONO ABS # 0.29 K/uL (0.11-0.59); NEUT % 71.3 %
[2018-03-21] MEDS ORDERED: BISACODYL 10 MG SUPP PR STA (07:29)
[2018-03-21] MEDS ORDERED: POTASSIUM CHLORIDE 20 MEQ TABCR PO STA (07:29)
[2018-03-21] MEDS: INSULIN ASPART 100 UNITS/ML 3 ML PEN SC SCH ×3 (08:41→20:57)
[2018-03-21] MEDS: POLYETHYLENE (MIRALAX) 17 GM PACK PO PRN (09:02)
[2018-03-21] MEDS: NYSTATIN POWDER 15GM BTL EXT SCH ×3 (09:04→20:47)
[2018-03-21] MEDS: PANTOprazole SOD 40 MG TAB PO SCH (09:04)
[2018-03-21] MEDS: SUCRALFATE 1 GM/10 ML UDC PO SCH ×4 (09:04→20:49)
[2018-03-21] MEDS: GABAPENTIN 300 MG CAP PO SCH ×2 (09:04→20:51)
[2018-03-21] MEDS: CITALOPRAM 20 MG TAB PO SCH (09:05)
[2018-03-21] MEDS: CHOLECALCIFEROL 1000 INTER.UNIT TAB PO SCH (09:05)
[2018-03-21] MEDS: CALCITRIOL 0.25 MCG CAP PO SCH (09:05)
[2018-03-21] MEDS: CLONIDINE HCL 0.1 MG TAB PO SCH (09:05)
[2018-03-21] MEDS: FERROUS SULFATE 325 MG TAB PO SCH (09:06)
[2018-03-21] MEDS: POTASSIUM CHLORIDE 10 MEQ TABCR PO SCH (09:06)
[2018-03-21] MEDS: CYANOCOBALAMIN 500 MCG TAB (VIT B-12) PO SCH (09:06)
[2018-03-21] MEDS: AMIODARONE 200 MG TAB PO SCH ×3 (09:06→20:50)
[2018-03-21] MEDS: ENOXAPARIN 80 MG/0.8 ML SYR SQ SCH ×2 (09:07→20:51)
--- NOTE | 2018-03-21 10:20 | Cardiology Follow-Up ---
Subjective Date of Service: Mar 21, 2018. Pt evaluation today including: conversation w/ patient, physical exam, chart review, lab review, review of studies, review of inpatient medication list, conversation w/ attending History of Present Illness She denies chest pain. Overall her diffuse pain has improved. She still feels short of breath at times. She did not sleep well. She denies syncope or palpitations. Review of systems: As above. Review of Systems Respiratory: + cough, + dyspnea at rest Cardiac: No chest pain Medications Current Inpatient Medications Medications (Trade) Dose Ordered Sig/Natasha Route Start Time Stop Time Status Last Admin Dose Admin Acetaminophen (Tylenol Tab) 650 mg Q4H PRN PO 03/15/18 18:30 04/14/18 18:29 03/19/18 20:01 650 MG Al Hydrox/Mg Hydrox/Simethicone (Maalox Max Susp) 15 ml Q4H PRN PO 03/15/18 18:30 04/14/18 18:29 Magnesium Hydroxide (Milk Of Magnesia Susp) 30 ml Q12H PRN PO 03/15/18 18:30 04/14/18 18:29 Ondansetron HCl (Zofran Inj) 4 mg Q6H PRN IV 03/15/18 18:30 04/14/18 18:29 Polyethylene (Miralax Powder Packet) 17 gm DAILY PRN PO 03/15/18 18:30 04/14/18 18:29 03/21/18 09:02 17 GM Albuterol Sulfate (Ventolin 0.083% 2.5MG/3ML Neb) 2.5 mg Q4H PRN INH 03/15/18 18:30 04/14/18 18:29 Albuterol/ Ipratropium (Duoneb) 3 ml Q6R NEB 03/15/18 21:00 04/14/18 20:59 03/21/18 06:57 3 ML Butalbital/ Aspirin/Caffeine (Fiorinal Tab/ CAP) 1 tab Q4 PRN PO 03/15/18 20:00 04/14/18 19:59 03/17/18 08:17 1 TAB Calcitriol (Rocaltrol Cap) 0.25 mcg DAILY PO 03/16/18 09:00 04/15/18 08:59 03/21/18 09:05 0.25 MCG Cholecalciferol (Vitamin D Tab) 1,000 inter.unit DAILY PO 03/16/18 09:00 04/15/18 08:59 03/21/18 09:05 1,000 INTER.UNIT Citalopram Hydrobromide (celeXA TAB) 30 mg DAILY PO 03/16/18 09:00 04/15/18 08:59 03/21/18 09:05 30 MG Diclofenac Sodium (Voltaren 1% Top Gel) 1 appln QID PRN EXT 03/15/18 19:30 04/14/18 19:29 03/18/18 08:30 1 APPLN Gabapentin (Neurontin Cap) 300 mg BID PO 03/15/18 21:00 04/14/18 20:59 03/21/18 09:04 300 MG Levothyroxine Sodium (Synthroid Tab) 100 mcg DAILYBB PO 03/16/18 06:00 04/15/18 06:59 03/21/18 05:58 100 MCG Lorazepam (Ativan Tab) 0.25 mg for mild anxiety/ sl... Q6 PRN PO 03/15/18 18:30 04/14/18 18:29 Future Hold 03/18/18 21:12 0.25 MG Nystatin (Mycostatin Powder) 1 appln TID EXT 03/15/18 21:00 04/14/18 20:59 03/21/18 09:04 1 APPLN Ropinirole HCl (Requip Tab) 0.5 mg HS PO 03/15/18 21:00 04/14/18 20:59 03/20/18 21:48 0.5 MG Simvastatin (Zocor Tab) 20 mg HS PO 03/15/18 21:00 04/14/18 20:59 03/20/18 21:48 20 MG Sucralfate (Carafate Susp) 1 gm QID PO 03/15/18 21:00 04/14/18 20:59 03/21/18 09:04 1 GM Tramadol HCl (Ultram Tab) 50 mg Q6H PRN PO 03/15/18 18:30 04/14/18 18:29 03/18/18 15:59 50 MG Apixaban (Eliquis Tab) 5 mg BID PO 03/15/18 21:00 7/28/18 20:59 Future Hold 03/19/18 08:54 5 MG Calcium Carbonate (oS-Misael 500 TAB) 2,500 mg HS PO 03/15/18 21:00 04/14/18 20:59 03/20/18 21:49 2,500 MG Cyanocobalamin (Vitamin B-12 Tab) 1,000 mcg QAM PO 03/16/18 09:00 04/15/18 08:59 03/21/18 09:06 1,000 MCG Pantoprazole Sodium (Protonix Tab) 40 mg QAM PO 03/16/18 09:00 04/15/18 08:59 03/21/18 09:04 40 MG Ferrous Sulfate (Feosol Tab) 325 mg DAILY PO 03/16/18 09:00 04/15/18 08:59 03/21/18 09:06 325 MG Miscellaneous Information (Order Awaiting Action) 1 ea QS N/A 03/16/18 00:00 04/15/18 00:00 03/18/18 18:49 1 EA Potassium Chloride (Klor-Con M10) 20 meq DAILY PO 03/16/18 09:00 04/15/18 08:59 03/21/18 09:06 20 MEQ Miscellaneous Information (Order Awaiting Action) 1 ea QS N/A 03/16/18 00:00 04/15/18 00:00 03/18/18 18:49 1 EA Miscellaneous Information (Order Awaiting Action) 1 ea QS N/A 03/16/18 00:00 04/15/18 00:00 03/18/18 18:48 1 EA Insulin Aspart (novoLOG ASPART) SLIDING SCALE If C... ACHS SC 03/15/18 21:00 04/14/18 20:59 03/20/18 18:11 4 UNITS Glucose (Glucose 40% Gel) 15-30 GRAMS 15 GRAMS... UD PRN PO 03/15/18 19:00 04/14/18 18:59 Glucose (Glucose Chew Tab) 4-8 Tablets 4 Tabl... UD PRN PO 03/15/18 19:00 04/14/18 18:59 Dextrose (Dextrose 50% 50ML Syringe) 25-50ML 25ML FOR ... UD PRN IV 03/15/18 19:00 04/14/18 18:59 Glucagon (Glucagon Inj) 1 mg UD PRN SQ 03/15/18 19:00 04/14/18 18:59 Carbohydrates (Carbohydrates For Hypoglycemia) 15-30 GRAMS 15 grams if BSG 54-69... UD PRN PO 03/15/18 19:00 04/14/18 18:59 Clonidine HCl (Catapres Tab) 0.1 mg QAM PO 03/18/18 09:00 04/17/18 08:59 03/21/18 09:05 0.1 MG Prednisone (PredniSONE TAB) 40 mg DAILY PO 03/18/18 09:00 04/17/18 08:59 03/21/18 09:05 40 MG Heparin Sodium (Porcine) (Heparin 10 Unit/ ml 5 ml Flush) 5 ml PRN PRN FLUSH 03/20/18 00:30 04/19/18 00:29 Enoxaparin Sodium (Lovenox Inj) 80 mg Q12 SQ 03/20/18 16:00 04/19/18 20:59 Future Hold 03/21/18 09:07 80 MG Miscellaneous (Stop Order) 1 ea ONE ONCE N/A 03/22/18 20:00 03/22/18 20:01 Amiodarone HCl (Cordarone Tab) 200 mg TID PO 03/20/18 21:00 04/19/18 20:59 03/21/18 09:06 200 MG Ceftriaxone Sodium 2000 mg/ Dextrose 70 ml @ 100 mls/hr DAILY@2200 IV 03/20/18 22:30 03/22/18 22:29 03/20/18 22:30 100 MLS/HR Objective Vital Signs Past 12 Hours Date Time Temp Pulse Resp B/P (MAP) Pulse Ox O2 Delivery O2 Flow Rate FiO2 03/21/18 08:00 Nasal Cannula 3.0 03/21/18 07:18 36.7 86 20 154/82 (106) 100 Nasal Cannula 3.0 03/21/18 06:57 82 18 100 Nasal Cannula 3.0 03/21/18 04:23 Nasal Cannula 3.0 03/21/18 03:43 36.7 80 20 150/80 (103) 98 Nasal Cannula 3.0 03/20/18 23:38 36.6 76 18 146/83 (104) 99 Nasal Cannula 3.0 Last Recorded Weight-Kilograms: 92.000 Intake & Output 03/20/18 03/21/18 03/22/18 08:00 08:00 08:00 Intake Total 752 ml 796 ml Output Total 200 ml 1500 ml Balance 552 ml -704 ml Physical Exam Gen.: No acute distress. Alert. HEENT: Anicteric sclera. Neck: Thick neck. Cannot appreciate JVD. Cardiac: No ventricular heave. Regular. No ectopy. Normal S1-S2. No murmurs, rubs, or gallops. Pulmonary: Clear on anterior auscultation. Abdomen: Soft, nondistended, with normoactive bowel sounds. No bruits noted. No tenderness. Extremities: No significant pitting edema or cyanosis. Data Laboratory Results: Last 24 Hours Test 03/20/18 11:24 03/20/18 16:20 03/20/18 18:35 03/20/18 18:36 Bedside Glucose 231 mg/dl 196 mg/dl Erythrocyte Sedimentation Rate 2 mm/hr Lactic Acid Level 2.5 mmol/L Total Bilirubin 0.4 mg/dl Direct Bilirubin 0.1 mg/dl Aspartate Amino Transf (AST/SGOT) 20 U/L Alanine Aminotransferase (ALT/SGPT) 40 U/L Alkaline Phosphatase 46 U/L C-Reactive Protein 0.52 mg/dl Total Protein 5.1 gm/dl Albumin 2.7 gm/dl Lipase 154 U/L Thyroid Stimulating Hormone (TSH) 1.490 uIu/ml Test 03/20/18 20:15 03/21/18 05:09 Bedside Glucose 132 mg/dl White Blood Count 4.07 K/uL Red Blood Count 3.44 M/uL Hemoglobin 10.5 g/dL Hematocrit 33.2 % Mean Corpuscular Volume 96.5 fL Mean Corpuscular Hemoglobin 30.5 pg Mean Corpuscular Hemoglobin Concent 31.6 g/dl Platelet Count 135 K/uL Mean Platelet Volume 10.6 fL Neutrophils (%) (Auto) 71.3 % Lymphocytes (%) (Auto) 15.0 % Monocytes (%) (Auto) 7.1 % Eosinophils (%) (Auto) 1.0 % Basophils (%) (Auto) 0.2 % Neutrophils # (Auto) 2.90 K/uL Lymphocytes # (Auto) 0.61 K/uL Monocytes # (Auto) 0.29 K/uL Eosinophils # (Auto) 0.04 K/uL Basophils # (Auto) 0.01 K/uL RDW Standard Deviation 58.6 fL RDW Coefficient of Variation 16.6 % Immature Granulocyte % (Auto) 5.4 % Immature Granulocyte # (Auto) 0.22 K/uL Nucleated RBC Absolute Count (auto) 0.02 K/uL Nucleated Red Blood Cells % 0.6 % Basophilic Stippling 1+ Tear Drop Cells 1+ Sodium Level 142 mmol/L Potassium Level 3.4 mmol/L Chloride Level 102 mmol/L Carbon Dioxide Level 35 mmol/L Anion Gap 5.0 mmol/L Blood Urea Nitrogen 17 mg/dl Creatinine 0.90 mg/dl Est Creatinine Clear Calc Drug Dose 47.2 ml/min Estimated GFR () 69.5 Estimated GFR (Non- 60.0 BUN/Creatinine Ratio 18.6 Random Glucose 101 mg/dl Lactic Acid Level 1.0 mmol/L Calcium Level 7.7 mg/dl Telemetry personally reviewed: No arrhythmia. Remains sinus rhythm. ECG personally reviewed 03/21/2018: Sinus rhythm 79 bpm. Normal ECG. Chart reviewed. Assessment and Plan ASSESSMENT/PLAN: 1. Paroxysmal atrial fibrillation: She may have been mildly symptomatic with palpitations. She converted while on amiodarone drip. She remains in sinus rhythm while on amiodarone. Continue amiodarone 200 mg 3 times daily. On 03/29, reduce dose to 200 mg once daily if no further issues with atrial fibrillation. She is chronically anticoagulated for prior DVT. Continue anticoagulation for stroke risk reduction as managed by the primary service. TSH normal. 2. Shortness of breath: She has documented pulmonary issues and pulmonology is following along. Tracheostomy has been recommended by Dr. Khalil and is pending for later this week. Would recommend that her net fluid balance remain relatively even. She does not appear to be hypervolemic on exam. 3. Hypertension with intermittent Orthostatic hypotension: This has been a chronic issue. Her blood pressure is mildly hypertensive. Allow for mild hypertension given orthostatic symptoms in the past with treatment. 4. Disposition: Plan of care has been communicated with Dr. Lopes of the primary hospitalist service. Cardiology will sign off at this time. Please call with any further questions or concerns.
[2018-03-21] MEDS ORDERED: NURSING VERBAL MED ORDER ONE ×2 (11:00→13:15)
[2018-03-21] MEDS ORDERED: INSULIN ASPART 100 UNITS/ML 3 ML PEN SC SCH (12:00)
--- NOTE | 2018-03-21 12:24 | Pulmonology Progress Note ---
Pulmonary Progress Note Date of Service Mar 21, 2018. Attending Dr. Khalil Subjective Patient woken noted some mild nausea but overall no acute change in respiratory status Objective Patient was asleep uncomfortable when I walked into the room on nasal cannula with no signs of respiratory insufficiency. She was easily arousable and she noted some mild nausea. Vital signs: Stable on 3liters with saturations from 98--100% I/Os : Total +1.7L, 24hrs: -650cc Respiratory: Rhonchi appreciated in the right lower lobe otherwise clear to auscultation Cardiac: S1-S2 distant heart sounds but regular rhythm Abdomen: Positive bowel sounds soft nontender Extremities: 1+ pitting edema in the dependent regions PmHx: Pulmonary embolism, sleep apnea/OHV, COPD, oxygen dependent 2-5L, diaphragmatic insufficiency/status post fundoplication, steroid-induced myopathy , orthostatic hypotension, hypertension, sclerotic aortic valve, chronic lymphedema, paroxysmal atrial fibrillation, chronic shortness of breath, C diff positive, recurrent UTIs Procalcitonin: 0.5 CRP: 0.52 elevated Lactic acid: 1.0 CT of the abdomen 03/21/2018: Shows continuation bilateral right greater than left atelectasis, no acute changes Microbiology no growth today Assessment & Plan 83-year-old female with chronic respiratory insufficiency and steroid dependence admitted with atypical chest pain with an episode of atrial fibrillation with RVR: 1. Chronic Respiratory Insufficiency: Patient has undergone diaphragmatic plication as well as most likely steroid induced myopathy/progressive respiratory insufficiency. At this time I do agree with moving forward with tracheostomy and have contacted ENT physician Dr. Velazquez. 2. Lactic Acidosis: Patient's lactic acidosis has returned to within normal limits. Once again the etiology is unknown. Continue to monitor. 3. PE/VTE: Patient currently on Lovenox. Medication should be discontinued the evening prior to her interventions/tracheostomy. And then Re continued based off Dr. Velazquez's recommendation Data Medications: Current Inpatient Medications Medications (Trade) Dose Ordered Sig/Natasha Route Start Time Stop Time Status Last Admin Dose Admin Acetaminophen (Tylenol Tab) 650 mg Q4H PRN PO 03/15/18 18:30 04/14/18 18:29 03/19/18 20:01 650 MG Al Hydrox/Mg Hydrox/Simethicone (Maalox Max Susp) 15 ml Q4H PRN PO 03/15/18 18:30 04/14/18 18:29 Magnesium Hydroxide (Milk Of Magnesia Susp) 30 ml Q12H PRN PO 03/15/18 18:30 04/14/18 18:29 Ondansetron HCl (Zofran Inj) 4 mg Q6H PRN IV 03/15/18 18:30 04/14/18 18:29 Polyethylene (Miralax Powder Packet) 17 gm DAILY PRN PO 03/15/18 18:30 04/14/18 18:29 03/21/18 09:02 17 GM Albuterol Sulfate (Ventolin 0.083% 2.5MG/3ML Neb) 2.5 mg Q4H PRN INH 03/15/18 18:30 04/14/18 18:29 Albuterol/ Ipratropium (Duoneb) 3 ml Q6R NEB 03/15/18 21:00 04/14/18 20:59 03/21/18 06:57 3 ML Butalbital/ Aspirin/Caffeine (Fiorinal Tab/ CAP) 1 tab Q4 PRN PO 03/15/18 20:00 04/14/18 19:59 03/17/18 08:17 1 TAB Calcitriol (Rocaltrol Cap) 0.25 mcg DAILY PO 03/16/18 09:00 04/15/18 08:59 03/21/18 09:05 0.25 MCG Cholecalciferol (Vitamin D Tab) 1,000 inter.unit DAILY PO 03/16/18 09:00 04/15/18 08:59 03/21/18 09:05 1,000 INTER.UNIT Citalopram Hydrobromide (celeXA TAB) 30 mg DAILY PO 03/16/18 09:00 04/15/18 08:59 03/21/18 09:05 30 MG Diclofenac Sodium (Voltaren 1% Top Gel) 1 appln QID PRN EXT 03/15/18 19:30 04/14/18 19:29 03/18/18 08:30 1 APPLN Gabapentin (Neurontin Cap) 300 mg BID PO 03/15/18 21:00 04/14/18 20:59 03/21/18 09:04 300 MG Levothyroxine Sodium (Synthroid Tab) 100 mcg DAILYBB PO 03/16/18 06:00 04/15/18 06:59 03/21/18 05:58 100 MCG Lorazepam (Ativan Tab) 0.25 mg for mild anxiety/ sl... Q6 PRN PO 03/15/18 18:30 04/14/18 18:29 Future Hold 03/18/18 21:12 0.25 MG Nystatin (Mycostatin Powder) 1 appln TID EXT 03/15/18 21:00 04/14/18 20:59 03/21/18 09:04 1 APPLN Ropinirole HCl (Requip Tab) 0.5 mg HS PO 03/15/18 21:00 04/14/18 20:59 03/20/18 21:48 0.5 MG Simvastatin (Zocor Tab) 20 mg HS PO 03/15/18 21:00 04/14/18 20:59 03/20/18 21:48 20 MG Sucralfate (Carafate Susp) 1 gm QID PO 03/15/18 21:00 04/14/18 20:59 03/21/18 09:04 1 GM Tramadol HCl (Ultram Tab) 50 mg Q6H PRN PO 03/15/18 18:30 04/14/18 18:29 03/18/18 15:59 50 MG Apixaban (Eliquis Tab) 5 mg BID PO 03/15/18 21:00 04/14/18 20:59 Future Hold 03/19/18 08:54 5 MG Calcium Carbonate (oS-Misael 500 TAB) 2,500 mg HS PO 03/15/18 21:00 04/14/18 20:59 03/20/18 21:49 2,500 MG Cyanocobalamin (Vitamin B-12 Tab) 1,000 mcg QAM PO 03/16/18 09:00 04/15/18 08:59 03/21/18 09:06 1,000 MCG Pantoprazole Sodium (Protonix Tab) 40 mg QAM PO 03/16/18 09:00 04/15/18 08:59 03/21/18 09:04 40 MG Ferrous Sulfate (Feosol Tab) 325 mg DAILY PO 03/16/18 09:00 04/15/18 08:59 03/21/18 09:06 325 MG Miscellaneous Information (Order Awaiting Action) 1 ea QS N/A 03/16/18 00:00 04/15/18 00:00 03/18/18 18:49 1 EA Potassium Chloride (Klor-Con M10) 20 meq DAILY PO 03/16/18 09:00 04/15/18 08:59 03/21/18 09:06 20 MEQ Miscellaneous Information (Order Awaiting Action) 1 ea QS N/A 03/16/18 00:00 04/15/18 00:00 03/18/18 18:49 1 EA Miscellaneous Information (Order Awaiting Action) 1 ea QS N/A 03/16/18 00:00 04/15/18 00:00 03/18/18 18:48 1 EA Glucose (Glucose 40% Gel) 15-30 GRAMS 15 GRAMS... UD PRN PO 03/15/18 19:00 04/14/18 18:59 Glucose (Glucose Chew Tab) 4-8 Tablets 4 Tabl... UD PRN PO 03/15/18 19:00 04/14/18 18:59 Dextrose (Dextrose 50% 50ML Syringe) 25-50ML 25ML FOR ... UD PRN IV 03/15/18 19:00 04/14/18 18:59 Glucagon (Glucagon Inj) 1 mg UD PRN SQ 03/15/18 19:00 04/14/18 18:59 Carbohydrates (Carbohydrates For Hypoglycemia) 15-30 GRAMS 15 grams if BSG 54-69... UD PRN PO 03/15/18 19:00 04/14/18 18:59 Clonidine HCl (Catapres Tab) 0.1 mg QAM PO 03/18/18 09:00 04/17/18 08:59 03/21/18 09:05 0.1 MG Prednisone (PredniSONE TAB) 40 mg DAILY PO 03/18/18 09:00 04/17/18 08:59 03/21/18 09:05 40 MG Heparin Sodium (Porcine) (Heparin 10 Unit/ ml 5 ml Flush) 5 ml PRN PRN FLUSH 03/20/18 00:30 04/19/18 00:29 Enoxaparin Sodium (Lovenox Inj) 80 mg Q12 SQ 03/20/18 16:00 04/19/18 20:59 Future Hold 03/21/18 09:07 80 MG Miscellaneous (Stop Order) 1 ea ONE ONCE N/A 03/22/18 20:00 03/22/18 20:01 Amiodarone HCl (Cordarone Tab) 200 mg TID PO 03/20/18 21:00 03/28/18 23:59 03/21/18 09:06 200 MG Ceftriaxone Sodium 2000 mg/ Dextrose 70 ml @ 100 mls/hr DAILY@2200 IV 03/20/18 22:30 03/22/18 22:29 03/20/18 22:30 100 MLS/HR Amiodarone HCl (Cordarone Tab) 200 mg DAILY PO 03/29/18 09:00 04/28/18 08:59 Insulin Aspart (novoLOG ASPART) SLIDING SCALE If C... Q6 SC 03/21/18 12:00 04/20/18 11:59 Vital Signs: Date Time Temp Pulse Resp B/P (MAP) Pulse Ox O2 Delivery O2 Flow Rate FiO2 03/21/18 08:00 Nasal Cannula 3.0 03/21/18 07:18 36.7 86 20 154/82 (106) 100 Nasal Cannula 3.0 03/21/18 06:57 82 18 100 Nasal Cannula 3.0 03/21/18 04:23 Nasal Cannula 3.0 03/21/18 03:43 36.7 80 20 150/80 (103) 98 Nasal Cannula 3.0 03/20/18 23:38 36.6 76 18 146/83 (104) 99 Nasal Cannula 3.0 03/20/18 20:30 Nasal Cannula 3.0 03/20/18 19:43 37.0 79 18 123/83 (96) 98 Nasal Cannula 3.0 03/20/18 16:40 36.9 80 20 128/74 (92) 98 Nasal Cannula 3.0 03/20/18 16:00 Nasal Cannula 3.0 03/20/18 13:32 85 18 98 Nasal Cannula 5.0 Laboratory Results: Last 24 Hours Test 03/20/18 16:20 03/20/18 18:35 03/20/18 18:36 03/20/18 20:15 Bedside Glucose 196 mg/dl 132 mg/dl Erythrocyte Sedimentation Rate 2 mm/hr Lactic Acid Level 2.5 mmol/L Total Bilirubin 0.4 mg/dl Direct Bilirubin 0.1 mg/dl Aspartate Amino Transf (AST/SGOT) 20 U/L Alanine Aminotransferase (ALT/SGPT) 40 U/L Alkaline Phosphatase 46 U/L C-Reactive Protein 0.52 mg/dl Total Protein 5.1 gm/dl Albumin 2.7 gm/dl Lipase 154 U/L Thyroid Stimulating Hormone (TSH) 1.490 uIu/ml Test 03/21/18 05:09 03/21/18 12:11 White Blood Count 4.07 K/uL Red Blood Count 3.44 M/uL Hemoglobin 10.5 g/dL Hematocrit 33.2 % Mean Corpuscular Volume 96.5 fL Mean Corpuscular Hemoglobin 30.5 pg Mean Corpuscular Hemoglobin Concent 31.6 g/dl Platelet Count 135 K/uL Mean Platelet Volume 10.6 fL Neutrophils (%) (Auto) 71.3 % Lymphocytes (%) (Auto) 15.0 % Monocytes (%) (Auto) 7.1 % Eosinophils (%) (Auto) 1.0 % Basophils (%) (Auto) 0.2 % Neutrophils # (Auto) 2.90 K/uL Lymphocytes # (Auto) 0.61 K/uL Monocytes # (Auto) 0.29 K/uL Eosinophils # (Auto) 0.04 K/uL Basophils # (Auto) 0.01 K/uL RDW Standard Deviation 58.6 fL RDW Coefficient of Variation 16.6 % Immature Granulocyte % (Auto) 5.4 % Immature Granulocyte # (Auto) 0.22 K/uL Nucleated RBC Absolute Count (auto) 0.02 K/uL Nucleated Red Blood Cells % 0.6 % Basophilic Stippling 1+ Tear Drop Cells 1+ Sodium Level 142 mmol/L Potassium Level 3.4 mmol/L Chloride Level 102 mmol/L Carbon Dioxide Level 35 mmol/L Anion Gap 5.0 mmol/L Blood Urea Nitrogen 17 mg/dl Creatinine 0.90 mg/dl Est Creatinine Clear Calc Drug Dose 47.2 ml/min Estimated GFR () 69.5 Estimated GFR (Non- 60.0 BUN/Creatinine Ratio 18.6 Random Glucose 101 mg/dl Lactic Acid Level 1.0 mmol/L Calcium Level 7.7 mg/dl Bedside Glucose 169 mg/dl
[2018-03-21] MEDS: POLYETHYLENE (MIRALAX) 17 GM PACK PO SCH ×3 (13:21→18:28)
--- NOTE | 2018-03-21 15:43 | SURGICAL CONSULTATION ---
DATE OF CONSULTATION: 03/21/2018 I have been asked by Dr. Mann to see this 83-year-old female who presented to the Emergency Room with complaint of right-sided chest pain initially. She was found to have a lactic acid elevation that was as high as 5.3. That was on the 15 of March and since then has been decreasing. Today it is 1.0. The patient also then complained of abdominal pain and had been noted to have some abdominal tenderness. The patient was also found to have inspissated stool within the rectum which was evacuated today and since then has had 2 bowel movements. She states that her abdomen is feeling some better. She has mild nausea but was eating a small amount of clear liquid. She has not vomited. She had no melena or hematochezia. She has undergone 2 CAT scans of the abdomen and pelvis and underwent an ultrasound of the gallbladder. The ultrasound of the gallbladder revealed no gallstones. The common duct was [address] scan of the abdomen and pelvis on 2 occasions showed evidence of issues in the lung bases but had no intra-abdominal pathology noted. Her liver was noted to be macronodular in contour. There was no ductal dilatation. The pancreas showed some mild atrophy but was otherwise normal. PAST MEDICAL HISTORY: Includes COPD with chronic respiratory insufficiency requiring oxygen at home. She had an elevated right hemidiaphragm that was plicated. She has a history of DVT and PE. She also has hypothyroidism, type 2 diabetes, chronic kidney disease, diastolic CHF, GERD. PAST SURGICAL HISTORY: For the diaphragm plication and an appendectomy. PHYSICAL EXAMINATION: GENERAL: Reveals an elderly female who is resting comfortably. Her eyes were closed during the majority of the visit; however, she was answering questions appropriately. VITAL SIGNS: Blood pressure 110/60, heart rate 82, respirations 20, temperature 37.0, pulse oximetry 96% on room air. HEENT: Reveals sclerae to be anicteric. Mucous membranes are moist. NECK: Supple. LUNGS: Had no wheezes, but there were scattered rhonchi. HEART: Regular. ABDOMEN: Has decreased bowel sounds, but the pitch is normal. Her abdomen is mildly distended. It is soft. There is diffuse tenderness to moderate palpation throughout the abdomen, but it is more pronounced along the traverse of the colon. RECTAL EXAM: Was performed by Dr. Mann today. LABORATORY DATA: Most recently reveals a WBC of 4.07 with an H&H of 10.5 and 33.2 and a platelet count of 135,000. Sodium 142, potassium 3.4, chloride 102, CO2 25, BUN 17, creatinine 0.9, glucose 132. Lactic acid 1.0. Radiologic studies as per HPI. ASSESSMENT AND PLAN: This patient had chest pain as well as some abdominal pain. This may be related to her significant constipation and hopefully now that she has had bowel movements, this will resolve. There were no acute findings on the CT or ultrasound studies. There is no evidence of acute cholecystitis. I do not feel that there is any need for immediate surgical intervention. We will continue to follow and monitor her lactic acid as well as her abdominal exam and can make further decisions as her condition may change.
[2018-03-21] MEDS: TIOTROPIUM BROMIDE 28 PUFF/4 GM INH INH SCH (20:48)
[2018-03-21] MEDS: SIMVASTATIN 20 MG TAB PO SCH (20:50)
[2018-03-21] MEDS: ROPINIROLE HCL 0.25 MG TAB PO SCH (20:52)
[2018-03-21] MEDS: CALCIUM CARBONATE 1250MG TAB PO SCH (20:52)
[2018-03-21] MEDS: TRAMADOL HCL 50 MG TAB PO PRN (21:07)
[2018-03-22] VITALS (10 sets, daily range): BP systolic 90–153; BP diastolic 42–72; PULSE 76–84; TEMP 36.6–37.2; O2SAT 98–100
[2018-03-22] MEDS: ALBUT/IPRATROP 3MG/0.5MG NEB 3 ML VIAL NEB SCH ×4 (02:00→19:28)
[2018-03-22 04:54] LABS: CALCIUM 7.9 mg/dl (8.5-10.1); CREATININE 0.9 mg/dl (0.60-1.20); POTASSIUM 3.7 mmol/L (3.5-5.1)
[2018-03-22] MEDS: LEVOTHYROXINE 100 MCG TAB PO SCH (05:47)
[2018-03-22] MEDS ORDERED: BISACODYL 5 MG TABEC PO ONE (08:15)
[2018-03-22] MEDS: TIOTROPIUM BROMIDE 28 PUFF/4 GM INH INH SCH ×2 (08:17→21:08)
[2018-03-22] MEDS: NYSTATIN POWDER 15GM BTL EXT SCH ×3 (08:17→21:08)
[2018-03-22] MEDS: CYANOCOBALAMIN 500 MCG TAB (VIT B-12) PO SCH (08:18)
[2018-03-22] MEDS: PANTOprazole SOD 40 MG TAB PO SCH (08:18)
[2018-03-22] MEDS: SUCRALFATE 1 GM/10 ML UDC PO SCH ×4 (08:18→21:06)
[2018-03-22] MEDS: GABAPENTIN 300 MG CAP PO SCH ×2 (08:18→21:06)
--- NOTE | 2018-03-22 08:18 | Progress Note ---
Subjective Date of Service: Mar 21, 2018. Subjective Pt evaluation today including: conversation w/ patient, conversation w/ family (daughter), physical exam, chart review, lab review, review of studies, conversation w/ wig sales consultant (surgery), review of inpatient medication list Pain: abdomen - multiple locations today PO Intake: poor Voiding: christian catheter in place tele stable overnight had a small smear of stool following dulcolax suppos abd pain better after passing stool during my visit I went to perform a rectal exam w/ nursing assistance before I performed a MONTY she had already passed a rock-solid ball of stool I then performed the MONTY - she had copious stool in the rectal vault even despite passing the prior stool there was mild amount of gross mucous on the glove following MONTY no gross blood no masses not as achy today Problem List Medical Problems: (1) Cervical strain Status: Acute (2) Contusion of multiple sites Status: Acute (3) COPD exacerbation Status: Acute (4) Fall Status: Acute (5) Fall from chair, initial encounter Status: Acute (6) Fatigue Status: Acute (7) Head injury Status: Acute (8) Head injury Status: Acute (9) Hip pain Status: Acute (10) Hypocalcemia Status: Acute (11) Hypoxia Status: Acute (12) Hypoxia Status: Acute (13) Lower extremity edema Status: Acute (14) PNA (pneumonia) Status: Acute (15) Pneumonia Status: Acute (16) Pneumonitis Status: Acute (17) Reactive airway disease Status: Acute (18) Right flank pain Status: Acute (19) Sepsis Status: Acute (20) Sepsis Status: Acute (21) Syncope Status: Acute (22) Traumatic compression fracture of third thoracic vertebra Status: Acute (23) Vaginal yeast infection Status: Acute (24) Weakness Status: Acute (25) Yeast vaginitis Status: Acute Review of Systems Constitutional: No fever Respiratory: No shortness of breath Cardiac: No chest pain Abdomen: + see HPI, + pain, No nausea, No vomiting Objective Vital Signs Date Time Temp Pulse Resp B/P (MAP) Pulse Ox O2 Delivery O2 Flow Rate FiO2 03/21/18 19:21 80 20 97 Nasal Cannula 3.0 03/21/18 16:00 Nasal Cannula 3.0 03/21/18 15:44 36.9 78 18 120/63 (82) 96 03/21/18 13:45 81 18 97 Nasal Cannula 3.0 03/21/18 12:00 Nasal Cannula 3.0 03/21/18 11:27 37.0 82 20 117/60 (79) 96 Room Air 03/21/18 08:00 Nasal Cannula 3.0 03/21/18 07:18 36.7 86 20 154/82 (106) 100 Nasal Cannula 3.0 03/21/18 06:57 82 18 100 Nasal Cannula 3.0 03/21/18 04:23 Nasal Cannula 3.0 03/21/18 03:43 36.7 80 20 150/80 (103) 98 Nasal Cannula 3.0 03/20/18 23:38 36.6 76 18 146/83 (104) 99 Nasal Cannula 3.0 Physical Exam General Appearance: no apparent distress, + obese, + pertinent finding ( cushingnoid appearance) ENT: pharynx normal Neck: no JVD Respiratory/Chest: no respiratory distress, no accessory muscle use, + decreased breath sounds (right base), + rales (very mild- bases) Cardiovascular: regular rate, rhythm, no gallop, no murmur Abdomen: normal bowel sounds, soft, no organomegaly, + tenderness (RUQ/RLQ/LLQ) , + pertinent finding (MONTY - copious stool, mild mucous, no blood) Extremities: no pedal edema Neurologic/Psychiatric: alert (more awake/alert today) Laboratory Results Last 24 Hours Test 03/21/18 05:09 03/21/18 12:11 03/21/18 16:15 03/21/18 20:22 White Blood Count 4.07 K/uL Red Blood Count 3.44 M/uL Hemoglobin 10.5 g/dL Hematocrit 33.2 % Mean Corpuscular Volume 96.5 fL Mean Corpuscular Hemoglobin 30.5 pg Mean Corpuscular Hemoglobin Concent 31.6 g/dl Platelet Count 135 K/uL Mean Platelet Volume 10.6 fL Neutrophils (%) (Auto) 71.3 % Lymphocytes (%) (Auto) 15.0 % Monocytes (%) (Auto) 7.1 % Eosinophils (%) (Auto) 1.0 % Basophils (%) (Auto) 0.2 % Neutrophils # (Auto) 2.90 K/uL Lymphocytes # (Auto) 0.61 K/uL Monocytes # (Auto) 0.29 K/uL Eosinophils # (Auto) 0.04 K/uL Basophils # (Auto) 0.01 K/uL RDW Standard Deviation 58.6 fL RDW Coefficient of Variation 16.6 % Immature Granulocyte % (Auto) 5.4 % Immature Granulocyte # (Auto) 0.22 K/uL Nucleated RBC Absolute Count (auto) 0.02 K/uL Nucleated Red Blood Cells % 0.6 % Basophilic Stippling 1+ Tear Drop Cells 1+ Sodium Level 142 mmol/L Potassium Level 3.4 mmol/L Chloride Level 102 mmol/L Carbon Dioxide Level 35 mmol/L Anion Gap 5.0 mmol/L Blood Urea Nitrogen 17 mg/dl Creatinine 0.90 mg/dl Est Creatinine Clear Calc Drug Dose 47.2 ml/min Estimated GFR () 69.5 Estimated GFR (Non- 60.0 BUN/Creatinine Ratio 18.6 Random Glucose 101 mg/dl Lactic Acid Level 1.0 mmol/L Calcium Level 7.7 mg/dl Bedside Glucose 169 mg/dl 310 mg/dl 181 mg/dl Assessment and Plan 83yo female: 1. encephalopathy - continues to improve. Suspect it was toxic from recent pain meds/benzos but I cannot exclude metabolic process from her abdominal issues. CT head, ammonia, VBG were normal. 2. new-onset a. fib - converted to NSR and has remained in NSR with amiodarone. Continue oral amiodarone 200mg daily. 3. abdominal pain with lactic acidosis - I am uncertain of the etiology of her pain. 03/15/[address] pathology[address] CT 03/20/18 normal except for moderate constipation. She passed a rock-solid stool today and despite such still had copious stool on MONTY. Did she have a low-grade stercolitis? This certainly can cause abd pain, lactic acidosis, and confusion in seniors. Appreciate gen surg consult. continue aggressive bowel regimen. give miralax x 3 doses +/- oral dulcolax. LFTs, lipase, sed rate, and crp are reassuring.. 4. chronic hypoxic respiratory failure - stable on home O2 amount. No evidence of complicating pneumonia at this time. 5. right-sided chest/abd pain at admission - etiology uncertain; ACS was ruled out; PE was ruled out. See #3 above. 6. ?UTI - ruled out; stop rocephin. 7. recommendation for trach - I spoke with Dr. Khalil and Dr. Velazquez yesterday. Dr. Khalil has recommended trach placement due to concern she cannot handle her own secretions and is aspirating these. Dr. Velazquez has Ms. Philip on the schedule for Monday of this week. In preparation for this Monday will HOLD her eliquis and use lovenox at therapeutic dosing until then. 7. COPD - steroid dependent; currently on 40mg/day. Wean to 30mg tomorrow. Could prednisone be masking an intra-abdominal process??? 8. H/O DVTs - noted; remains on anticoagulation. 9. CKD stage 3 - creatinine stable. 10. Hypothyroidism - compensated; cont synthroid. 11. T2DM - controlled. 12. chronic diastolic CHF - compensated at this time. 13. right-sided elevated Hemidiaphragm - S/P Plication in the past. 14. elevated lactate level - due to #3 above? 15. HTN - controlled with current meds. daughter updated at bedside Continued [facility] stay due to: inadequate po fluid intake, voiding difficulties, ambulation difficulties, multiple IV medications needed, other (altered MS, need for trach) Discharge planning: uncertain
[2018-03-22] MEDS: AMIODARONE 200 MG TAB PO SCH ×3 (08:19→21:07)
[2018-03-22] MEDS: CALCITRIOL 0.25 MCG CAP PO SCH (08:19)
[2018-03-22] MEDS: POTASSIUM CHLORIDE 10 MEQ TABCR PO SCH (08:19)
[2018-03-22] MEDS: CITALOPRAM 20 MG TAB PO SCH (08:20)
[2018-03-22] MEDS: CLONIDINE HCL 0.1 MG TAB PO SCH (08:21)
[2018-03-22] MEDS: CHOLECALCIFEROL 1000 INTER.UNIT TAB PO SCH (08:21)
[2018-03-22] MEDS: FERROUS SULFATE 325 MG TAB PO SCH (08:21)
[2018-03-22] MEDS: ENOXAPARIN 80 MG/0.8 ML SYR SQ SCH (08:22)
[2018-03-22] MEDS: INSULIN ASPART 100 UNITS/ML 3 ML PEN SC SCH ×4 (08:25→21:17)
--- NOTE | 2018-03-22 10:40 | Surgery Progress Note ---
Surgery Progress Note Date of Service Mar 22, 2018. Subjective Post OP Day: HD # 7 still having some abdominal pain tolerating clear liquids Objective Vital Signs: Date Time Temp Pulse Resp B/P (MAP) Pulse Ox O2 Delivery O2 Flow Rate FiO2 03/22/18 07:50 36.6 84 18 153/72 (99) 98 Nasal Cannula 3.0 03/22/18 07:17 76 18 98 Nasal Cannula 3.0 03/22/18 04:00 Nasal Cannula 3.0 03/22/18 03:17 36.7 76 20 93/42 (59) 98 Nasal Cannula 3.0 03/22/18 00:00 Nasal Cannula 3.0 03/21/18 23:46 36.9 80 19 106/62 (77) 98 Nasal Cannula 3.0 03/21/18 20:00 36.8 76 18 128/77 (94) 98 03/21/18 20:00 Nasal Cannula 3.0 03/21/18 19:21 80 20 97 Nasal Cannula 3.0 03/21/18 16:00 Nasal Cannula 3.0 03/21/18 15:44 36.9 78 18 120/63 (82) 96 03/21/18 13:45 81 18 97 Nasal Cannula 3.0 03/21/18 12:00 Nasal Cannula 3.0 03/21/18 11:27 37.0 82 20 117/60 (79) 96 Room Air General Appearance: no apparent distress Head: normocephalic, atraumatic Neck: trachea midline Respiratory/Chest: no respiratory distress, no accessory muscle use Abdomen: non distended, soft, no organomegaly, no pulsatile mass, + tenderness (upper abdomen on deep palpation, no rigidity, guarding or rebound pain) Laboratory Results: Results Past 24 Hours Test 03/21/18 12:11 03/21/18 16:15 03/21/18 20:22 03/22/18 04:13 Range/Units Bedside Glucose 169 310 181 70-90 mg/dl Sodium Level 141 136-145 mmol/L Potassium Level 3.7 3.5-5.1 mmol/L Chloride Level 101 98-107 mmol/L Carbon Dioxide Level 34 21-32 mmol/L Anion Gap 6.0 3-11 mmol/L Blood Urea Nitrogen 15 7-18 mg/dl Creatinine 0.90 0.60-1.20 mg/dl Est Creatinine Clear Calc Drug Dose 50.7 ml/min Estimated GFR () 69.5 Estimated GFR (Non- 60.0 BUN/Creatinine Ratio 16.3 10-20 Random Glucose 93 70-99 mg/dl Calcium Level 7.9 8.5-10.1 mg/dl Magnesium Level 1.9 1.8-2.4 mg/dl Test 03/22/18 06:57 Range/Units Bedside Glucose 111 70-90 mg/dl Assessment & Plan RUQ abdominal pain - CT scan of abdomen and pelvis x 2 with no intra-abdominal findings - Gallbladder US normal - CT scan suggestive of Constipation with moderate stool burden in colon - abdomen is soft, nondistended, lactic acid yesterday 1.0 Plan: No acute surgical intervention required continue current medical management Dulcolax ordered this morning Dr. Hurd has seen and examined patient, agrees with above I have interviewed and examined this patient and reviewed the labs and radiology reports and I agree with the above note. She feels better today. Her abdomen is softer and less tender. There is no need for surgical intervention at this time. I would continue with managing her cathartics.
[2018-03-22] MEDS: TRAMADOL HCL 50 MG TAB PO PRN (11:41)
--- NOTE | 2018-03-22 14:09 | Progress Note ---
Progress Note Date of Service Mar 22, 2018. Progress Note Pt is scheduled for tracheostomy with Dr. Velazquez tomorrow. Pt is a 83 yo female with multiple comorbidities. PMH includes COPD, restrictive lung dz, chronic respiratory insufficiency with hypoventilation on chronic steroid with 2-5L O2 dependent, YULY on CPAP, HTN, h/o distolic CHF, DVT, CKD stage II/III, chronic diaphragm insufficiency s/p plication, hypothyroidism, and obesity. Pt is scheduled for trach due to her hypoventilation syndrome with hypercarbia and hypersecretions. Pt had an episode of Afib with RVR a few days ago, which converted so SR with IV amiodarone and was being followed by cardiology. Most recent TTE from 11/2016 showed EF of 65-70, RVSP 30mmHg. Explained to patient regarding anesthesia plan including GA with possible post op ventilation in the ICU. All questions were answered and consent was signed. Pt was advised to be NPO after midnight except for sips of water with meds. Case also discussed with Dr. Velazquez who stated that case can also be done under local with sedation to minimize risk of post op ventilation.
--- NOTE | 2018-03-22 16:59 | Pulmonology Progress Note ---
Pulmonary Progress Note Date of Service Mar 22, 2018. Attending Dr. Khalil Subjective Patient is sleeping in bed but easily arousable spoke to her daughter at length notes she is improving after her defecation Objective Patient lying in bed sleeping showing no signs of respiratory insufficiency. Vital signs: Stable on 3liters I/Os : Total +3L, 24hrs: +1170cc Respiratory: Rhonchi appreciated in the right lower lobe otherwise clear to auscultation Cardiac: S1-S2 distant heart sounds but regular rhythm Abdomen: Positive bowel sounds soft nontender Extremities: 1+ pitting edema in the dependent regions PmHx: Pulmonary embolism, sleep apnea/OHV, COPD, oxygen dependent 2-5L, diaphragmatic insufficiency/status post fundoplication, steroid-induced myopathy , orthostatic hypotension, hypertension, sclerotic aortic valve, chronic lymphedema, paroxysmal atrial fibrillation, chronic shortness of breath, C diff positive, recurrent UTIs Procalcitonin: 0.5 CRP: 0.52 elevated Lactic acid: 1.0 CT of the abdomen 03/21/2018: Shows continuation bilateral right greater than left atelectasis, no acute changes Microbiology no growth today Assessment & Plan 83-year-old female with chronic respiratory insufficiency and steroid dependence admitted with atypical chest pain with an episode of atrial fibrillation with RVR: 1. Chronic Respiratory Insufficiency: Patient has undergone diaphragmatic plication as well as most likely steroid induced myopathy/progressive respiratory insufficiency. At this time I do agree with moving forward with tracheostomy and have contacted ENT physician Dr. Velazquez. 2. Lactic Acidosis: Patient's lactic acidosis has returned to within normal limits. Once again the etiology is unknown. Continue to monitor. 3. PE/VTE: Patient currently on Lovenox. Medication should be discontinued the evening prior to her interventions/tracheostomy. And then Re continued based off Dr. Velazquez's recommendation Data Medications: Current Inpatient Medications Medications (Trade) Dose Ordered Sig/Natasha Route Start Time Stop Time Status Last Admin Dose Admin Acetaminophen (Tylenol Tab) 650 mg Q4H PRN PO 03/15/18 18:30 04/14/18 18:29 03/19/18 20:01 650 MG Al Hydrox/Mg Hydrox/Simethicone (Maalox Max Susp) 15 ml Q4H PRN PO 03/15/18 18:30 04/14/18 18:29 Magnesium Hydroxide (Milk Of Magnesia Susp) 30 ml Q12H PRN PO 03/15/18 18:30 04/14/18 18:29 Ondansetron HCl (Zofran Inj) 4 mg Q6H PRN IV 03/15/18 18:30 04/14/18 18:29 Polyethylene (Miralax Powder Packet) 17 gm DAILY PRN PO 03/15/18 18:30 04/14/18 18:29 03/21/18 09:02 17 GM Albuterol Sulfate (Ventolin 0.083% 2.5MG/3ML Neb) 2.5 mg Q4H PRN INH 03/15/18 18:30 04/14/18 18:29 Albuterol/ Ipratropium (Duoneb) 3 ml Q6R NEB 03/15/18 21:00 04/14/18 20:59 03/22/18 14:17 3 ML Butalbital/ Aspirin/Caffeine (Fiorinal Tab/ CAP) 1 tab Q4 PRN PO 03/15/18 20:00 04/14/18 19:59 03/17/18 08:17 1 TAB Calcitriol (Rocaltrol Cap) 0.25 mcg DAILY PO 03/16/18 09:00 04/15/18 08:59 03/22/18 08:19 0.25 MCG Cholecalciferol (Vitamin D Tab) 1,000 inter.unit DAILY PO 03/16/18 09:00 04/15/18 08:59 03/22/18 08:21 1,000 INTER.UNIT Citalopram Hydrobromide (celeXA TAB) 30 mg DAILY PO 03/16/18 09:00 04/15/18 08:59 03/22/18 08:20 30 MG Diclofenac Sodium (Voltaren 1% Top Gel) 1 appln QID PRN EXT 03/15/18 19:30 04/14/18 19:29 03/18/18 08:30 1 APPLN Gabapentin (Neurontin Cap) 300 mg BID PO 03/15/18 21:00 04/14/18 20:59 03/22/18 08:18 300 MG Levothyroxine Sodium (Synthroid Tab) 100 mcg DAILYBB PO 03/16/18 06:00 04/15/18 06:59 03/22/18 05:47 100 MCG Lorazepam (Ativan Tab) 0.25 mg for mild anxiety/ sl... Q6 PRN PO 03/15/18 18:30 04/14/18 18:29 Future Hold 03/18/18 21:12 0.25 MG Nystatin (Mycostatin Powder) 1 appln TID EXT 03/15/18 21:00 04/14/18 20:59 03/22/18 14:37 1 APPLN Ropinirole HCl (Requip Tab) 0.5 mg HS PO 03/15/18 21:00 04/14/18 20:59 03/21/18 20:52 0.5 MG Simvastatin (Zocor Tab) 20 mg HS PO 03/15/18 21:00 04/14/18 20:59 03/21/18 20:50 20 MG Sucralfate (Carafate Susp) 1 gm QID PO 03/15/18 21:00 04/14/18 20:59 03/22/18 11:41 1 GM Tramadol HCl (Ultram Tab) 50 mg Q6H PRN PO 03/15/18 18:30 04/14/18 18:29 03/22/18 11:41 50 MG Apixaban (Eliquis Tab) 5 mg BID PO 03/15/18 21:00 04/14/18 20:59 Future Hold 03/19/18 08:54 5 MG Calcium Carbonate (oS-Misael 500 TAB) 2,500 mg HS PO 03/15/18 21:00 04/14/18 20:59 03/21/18 20:52 2,500 MG Cyanocobalamin (Vitamin B-12 Tab) 1,000 mcg QAM PO 03/16/18 09:00 04/15/18 08:59 03/22/18 08:18 1,000 MCG Pantoprazole Sodium (Protonix Tab) 40 mg QAM PO 03/16/18 09:00 04/15/18 08:59 03/22/18 08:18 40 MG Ferrous Sulfate (Feosol Tab) 325 mg DAILY PO 03/16/18 09:00 04/15/18 08:59 03/22/18 08:21 325 MG Miscellaneous Information (Order Awaiting Action) 1 ea QS N/A 03/16/18 00:00 04/15/18 00:00 03/18/18 18:49 1 EA Potassium Chloride (Klor-Con M10) 20 meq DAILY PO 03/16/18 09:00 04/15/18 08:59 03/22/18 08:19 20 MEQ Glucose (Glucose 40% Gel) 15-30 GRAMS 15 GRAMS... UD PRN PO 03/15/18 19:00 04/14/18 18:59 Glucose (Glucose Chew Tab) 4-8 Tablets 4 Tabl... UD PRN PO 03/15/18 19:00 04/14/18 18:59 Dextrose (Dextrose 50% 50ML Syringe) 25-50ML 25ML FOR ... UD PRN IV 03/15/18 19:00 04/14/18 18:59 Glucagon (Glucagon Inj) 1 mg UD PRN SQ 03/15/18 19:00 04/14/18 18:59 Carbohydrates (Carbohydrates For Hypoglycemia) 15-30 GRAMS 15 grams if BSG 54-69... UD PRN PO 03/15/18 19:00 04/14/18 18:59 Clonidine HCl (Catapres Tab) 0.1 mg QAM PO 03/18/18 09:00 04/17/18 08:59 03/22/18 08:21 0.1 MG Heparin Sodium (Porcine) (Heparin 10 Unit/ ml 5 ml Flush) 5 ml PRN PRN FLUSH 03/20/18 00:30 04/19/18 00:29 Enoxaparin Sodium (Lovenox Inj) 80 mg Q12 SQ 03/20/18 16:00 04/19/18 20:59 Future Hold 03/22/18 08:22 80 MG Miscellaneous (Stop Order) 1 ea ONE ONCE N/A 03/22/18 20:00 03/22/18 20:01 Amiodarone HCl (Cordarone Tab) 200 mg TID PO 03/20/18 21:00 03/28/18 23:59 03/22/18 14:36 200 MG Amiodarone HCl (Cordarone Tab) 200 mg DAILY PO 03/29/18 09:00 04/28/18 08:59 Insulin Aspart (novoLOG ASPART) SLIDING SCALE If C... ACHS SC 03/21/18 16:15 04/20/18 16:14 03/22/18 08:25 1 UNITS Tiotropium [place] (Spiriva Respimat) 2 puff BID INH 03/21/18 21:00 04/20/18 20:59 03/22/18 08:17 2 PUFF Non-Formulary Medication (Non-Formulary Patient'S Own Med) 1 ea DAILY PO 03/22/18 09:00 04/21/18 08:59 03/22/18 08:21 1 EA Prednisone (PredniSONE TAB) 30 mg DAILY PO 03/22/18 09:00 04/17/18 08:59 03/22/18 10:45 30 MG I & O: 24-Hour Column 03/23/18 08:00 Intake Total 1470 ml Output Total 150 ml Balance 1320 ml Vital Signs: Date Time Temp Pulse Resp B/P (MAP) Pulse Ox O2 Delivery O2 Flow Rate FiO2 03/22/18 16:00 Nasal Cannula 3.0 03/22/18 15:18 36.8 80 16 108/68 (81) 98 Nasal Cannula 3.0 03/22/18 14:17 83 18 98 Nasal Cannula 3.0 03/22/18 12:15 112/68 (83) 03/22/18 12:00 Nasal Cannula 3.0 03/22/18 11:26 37.2 84 20 90/54 (66) 99 Nasal Cannula 3.0 03/22/18 08:00 Nasal Cannula 3.0 03/22/18 07:50 36.6 84 18 153/72 (99) 98 Nasal Cannula 3.0 03/22/18 07:17 76 18 98 Nasal Cannula 3.0 03/22/18 04:00 Nasal Cannula 3.0 03/22/18 03:17 36.7 76 20 93/42 (59) 98 Nasal Cannula 3.0 03/22/18 00:00 Nasal Cannula 3.0 03/21/18 23:46 36.9 80 19 106/62 (77) 98 Nasal Cannula 3.0 03/21/18 20:00 36.8 76 18 128/77 (94) 98 03/21/18 20:00 Nasal Cannula 3.0 03/21/18 19:21 80 20 97 Nasal Cannula 3.0 Laboratory Results: Last 24 Hours Test 03/21/18 20:22 03/22/18 04:13 03/22/18 06:57 03/22/18 10:50 Bedside Glucose 181 mg/dl 111 mg/dl 117 mg/dl Sodium Level 141 mmol/L Potassium Level 3.7 mmol/L Chloride Level 101 mmol/L Carbon Dioxide Level 34 mmol/L Anion Gap 6.0 mmol/L Blood Urea Nitrogen 15 mg/dl Creatinine 0.90 mg/dl Est Creatinine Clear Calc Drug Dose 50.7 ml/min Estimated GFR () 69.5 Estimated GFR (Non- 60.0 BUN/Creatinine Ratio 16.3 Random Glucose 93 mg/dl Calcium Level 7.9 mg/dl Magnesium Level 1.9 mg/dl Test 03/22/18 16:26 Bedside Glucose 249 mg/dl
[2018-03-22] MEDS ORDERED: [UNRECOGNIZED DRUG - REMARK] ONE (20:00)
[2018-03-22] MEDS: SIMVASTATIN 20 MG TAB PO SCH (21:06)
[2018-03-22] MEDS: ROPINIROLE HCL 0.25 MG TAB PO SCH (21:06)
[2018-03-22] MEDS: CALCIUM CARBONATE 1250MG TAB PO SCH (21:07)
[2018-03-23] VITALS (15 sets, daily range): BP systolic 121–168; BP diastolic 68–85; PULSE 74–99; TEMP 36.5–37.5; O2SAT 92–100
[2018-03-23] MEDS: ALBUT/IPRATROP 3MG/0.5MG NEB 3 ML VIAL NEB SCH ×4 (02:11→19:00)
[2018-03-23 05:16] LABS: HEMATOCRIT 31.2 % (37-47); HEMOGLOBIN 9.9 g/dL (12.0-16.0); MEAN CELL VOLUME 96.6 fL (80-100); MEAN CORPUSCULAR HEMOGLOBIN 30.7 pg (25-34); MEAN CORPUSCULAR HGB CONC 31.7 g/dl (32-36); MEAN PLATELET VOLUME 10.7 fL (7.4-10.4); NUCLEATED RED BLOOD CELL ABS 0.02 K/uL (0-0); PLATELET COUNT 138 K/uL (130-400); RED CELL DISTRIBUTION WIDTH CV 16.8 % (11.5-14.5); RED CELL DISTRIBUTION WIDTH SD 59.3 fL (36.4-46.3); WHITE BLOOD COUNT 4.52 K/uL (4.8-10.8)
[2018-03-23] MEDS: LEVOTHYROXINE 100 MCG TAB PO SCH (05:55)
[2018-03-23] MEDS ORDERED: MIDAZOLAM HCL 1 MG/ML 2ML VIAL IV ONE (06:32)
[2018-03-23] MEDS ORDERED: FENTANYL CITRATE INJ 50 MCG/1 ML 2 ML VIAL IV ONE (06:32)
[2018-03-23] MEDS ORDERED: ROCURONIUM BROMIDE 10 MG/ML 5 ML VIAL IV ONE (06:35)
[2018-03-23] MEDS ORDERED: PROPOFOL IV EMULSION 10 MG/ML 20 ML VIAL IV ONE (06:35)
--- NOTE | 2018-03-23 06:44 | Progress Note ---
Subjective Date of Service: Mar 22, 2018. Subjective Pt evaluation today including: conversation w/ patient, conversation w/ family (Delores, daughter, at bedside), physical exam, chart review, lab review, conversation w/ wealth management consultant (ENT, pulmonary), review of inpatient medication list Pain: abd pain MUCH improved PO Intake: improved Voiding: christian catheter in place (purewick catheter in place) patient feeling better than previous abdominal pain nearly resolved she can't recall if she has had additional stools but she says "I think so" appetite improved; asks to eat fish for dinner denies any new complaints when asked if she is ok with proceeding with tracheostomy tomorrow she states yes Problem List Medical Problems: (1) Cervical strain Status: Acute (2) Contusion of multiple sites Status: Acute (3) COPD exacerbation Status: Acute (4) Fall Status: Acute (5) Fall from chair, initial encounter Status: Acute (6) Fatigue Status: Acute (7) Head injury Status: Acute (8) Head injury Status: Acute (9) Hip pain Status: Acute (10) Hypocalcemia Status: Acute (11) Hypoxia Status: Acute (12) Hypoxia Status: Acute (13) Lower extremity edema Status: Acute (14) PNA (pneumonia) Status: Acute (15) Pneumonia Status: Acute (16) Pneumonitis Status: Acute (17) Reactive airway disease Status: Acute (18) Right flank pain Status: Acute (19) Sepsis Status: Acute (20) Sepsis Status: Acute (21) Syncope Status: Acute (22) Traumatic compression fracture of third thoracic vertebra Status: Acute (23) Vaginal yeast infection Status: Acute (24) Weakness Status: Acute (25) Yeast vaginitis Status: Acute Review of Systems Respiratory: No shortness of breath Cardiac: No chest pain Abdomen: No pain, No nausea, No vomiting Objective Vital Signs Date Time Temp Pulse Resp B/P (MAP) Pulse Ox O2 Delivery O2 Flow Rate FiO2 03/22/18 20:00 Nasal Cannula 03/22/18 19:33 37.0 82 20 109/68 (82) 100 Nebulizer 03/22/18 19:29 84 16 98 Nasal Cannula 3.0 03/22/18 16:00 Nasal Cannula 3.0 03/22/18 15:18 36.8 80 16 108/68 (81) 98 Nasal Cannula 3.0 03/22/18 14:17 83 18 98 Nasal Cannula 3.0 03/22/18 12:15 112/68 (83) 03/22/18 12:00 Nasal Cannula 3.0 03/22/18 11:26 37.2 84 20 90/54 (66) 99 Nasal Cannula 3.0 03/22/18 08:00 Nasal Cannula 3.0 03/22/18 07:50 36.6 84 18 153/72 (99) 98 Nasal Cannula 3.0 03/22/18 07:17 76 18 98 Nasal Cannula 3.0 03/22/18 04:00 Nasal Cannula 3.0 03/22/18 03:17 36.7 76 20 93/42 (59) 98 Nasal Cannula 3.0 03/22/18 00:00 Nasal Cannula 3.0 03/21/18 23:46 36.9 80 19 106/62 (77) 98 Nasal Cannula 3.0 Physical Exam General Appearance: no apparent distress, + obese, + pertinent finding ( cushingnoid appearance) ENT: pharynx normal (no thrush, MMM) Neck: no JVD Respiratory/Chest: no respiratory distress, no accessory muscle use, + rales ( minimal - bases) Cardiovascular: regular rate, rhythm, no gallop, + systolic murmur (2/6 LLSB) Abdomen: normal bowel sounds, non tender, soft, no organomegaly, + pertinent finding (distension and tenderness both markedly improved) Extremities: no pedal edema Neurologic/Psychiatric: + pertinent finding (affect improved, more talkative today) Laboratory Results Last 24 Hours Test 03/22/18 04:13 03/22/18 06:57 03/22/18 10:50 03/22/18 16:26 Sodium Level 141 mmol/L Potassium Level 3.7 mmol/L Chloride Level 101 mmol/L Carbon Dioxide Level 34 mmol/L Anion Gap 6.0 mmol/L Blood Urea Nitrogen 15 mg/dl Creatinine 0.90 mg/dl Est Creatinine Clear Calc Drug Dose 50.7 ml/min Estimated GFR () 69.5 Estimated GFR (Non- 60.0 BUN/Creatinine Ratio 16.3 Random Glucose 93 mg/dl Calcium Level 7.9 mg/dl Magnesium Level 1.9 mg/dl Bedside Glucose 111 mg/dl 117 mg/dl 249 mg/dl Assessment and Plan 83yo female: 1. encephalopathy - resolved. Suspect it was toxic from recent pain meds/benzos as well as metabolic from the lactic acidosis and severe constipation. CT head, ammonia, VBG, blood cultures, etc were all normal. 2. new-onset a. fib - converted to NSR and has remained in NSR with amiodarone. Continue oral amiodarone 200mg daily. Hold lovenox bridge in anticipation of trach placement tomorrow AM. 3. abdominal pain with lactic acidosis - 03/15/[address] pathology[address] CT 03/20/18 normal except for moderate constipation. There has been NO signs of an ischemic bowel process. Gall bladder w/u was negative. She passed a rock-solid stool yesterday and despite such still had copious stool on MONTY. Did she have a low-grade stercolitis? This certainly could have caused abd pain , lactic acidosis, and confusion. Appreciate gen surg consult. Nothing surgical at this time. continue aggressive bowel regimen. LFTs, lipase, sed rate, and crp have been reassuring.. 4. chronic hypoxic respiratory failure - stable on home O2 amount. No evidence of complicating pneumonia at this time. 5. right-sided chest/abd pain at admission - etiology uncertain; ACS was ruled out; PE was ruled out. See #3 above. I believe the abdominal pain was likely due to severe constipation. 6. ?UTI - ruled out; abx stopped. 7. recommendation for trach - I spoke with Dr. Khalil and Dr. Velazquez multiple times this week; Dr. Khalil has recommended trach placement due to concern she cannot handle her own secretions and is aspirating these. Dr. Velazquez to take her to the OR tomorrow am. Eliquis and lovenox bridge both on hold. 7. COPD - steroid dependent; currently on 40mg/day. Weaned to 30mg today. 8. H/O DVTs - noted; remains on anticoagulation. 9. CKD stage 3 - creatinine stable. 10. Hypothyroidism - compensated; cont synthroid. 11. T2DM - controlled. 12. chronic diastolic CHF - compensated 13. right-sided elevated Hemidiaphragm - S/P Plication in the past. 14. elevated lactate level - due to #3 above? resolved. 15. HTN - controlled with current meds. 16. FEN - advance diet to T2DM diet tonight, then NPO after MN for trach in AM daughter updated at bedside once again Continued MN stay due to: voiding difficulties, ambulation difficulties, multiple IV medications needed, other (need for trach) Discharge planning: uncertain
[2018-03-23] MEDS ORDERED: KETAMINE HCL INJ 50 MG/ML 10 ML VIAL IV ONE (06:53)
[2018-03-23] MEDS: INSULIN ASPART 100 UNITS/ML 3 ML PEN SC SCH ×4 (07:00→21:05)
[2018-03-23] MEDS ORDERED: LIDO 2%/EPINEPHRINE 1:100000 20 ML VIAL ONE (07:01)
[2018-03-23] MEDS ORDERED: LIDOCAINE HCL 2% LOCAL 50ML VIAL ONE (07:02)
--- NOTE | 2018-03-23 08:12 | [facility] Post Operative Brief Note ---
Immediate Operative Summary Operative Date Mar 23, 2018. Pre-Operative Diagnosis Respiratory failure Post-Operative Diagnosis same Procedure(s) Performed Tracheostomy with rotation flaps Surgeon Dr. Velazquez Garment Turner Surgeon(s) none Estimated Blood Loss 5 cc Findings Consistent with Post-Op Diagnosis Specimens none, as per surgeon Drains None Anesthesia Type MAC Complication(s) none Disposition Disposition: PCU Overlapping Procedure I was present for: the critical portions of procedure. I was immediately available: during the entire case
[2018-03-23] MEDS: FENTANYL CITRATE INJ 50 MCG/1 ML 2 ML VIAL IV PRN ×2 (08:28→08:35)
[2018-03-23] MEDS ORDERED: ATROPINE SULFATE 0.1 MG/ML 5ML SYR IV PRN (08:30)
[2018-03-23] MEDS ORDERED: EpHEDrine SULFATE INJ 50 MG/ML AMP IV PRN (08:30)
[2018-03-23] MEDS ORDERED: ONDANSETRON INJ 2 MG/ML 2 ML VIAL IV PRN (08:30)
[2018-03-23] MEDS: CLONIDINE HCL 0.1 MG TAB PO SCH (09:00)
[2018-03-23] MEDS: AMIODARONE 200 MG TAB PO SCH ×3 (09:00→21:00)
[2018-03-23] MEDS: POTASSIUM CHLORIDE 10 MEQ TABCR PO SCH (09:00)
[2018-03-23] MEDS: TIOTROPIUM BROMIDE 28 PUFF/4 GM INH INH SCH ×2 (09:00→21:06)
[2018-03-23] MEDS: PANTOprazole SOD 40 MG TAB PO SCH (09:00)
[2018-03-23] MEDS: SUCRALFATE 1 GM/10 ML UDC PO SCH ×4 (09:00→21:00)
[2018-03-23] MEDS: CITALOPRAM 20 MG TAB PO SCH (09:00)
[2018-03-23] MEDS: CYANOCOBALAMIN 500 MCG TAB (VIT B-12) PO SCH (09:00)
[2018-03-23] MEDS: CHOLECALCIFEROL 1000 INTER.UNIT TAB PO SCH (09:00)
[2018-03-23] MEDS: FERROUS SULFATE 325 MG TAB PO SCH (09:00)
[2018-03-23] MEDS: GABAPENTIN 300 MG CAP PO SCH ×2 (09:00→21:00)
[2018-03-23] MEDS: CALCITRIOL 0.25 MCG CAP PO SCH (09:00)
[2018-03-23] MEDS: NYSTATIN POWDER 15GM BTL EXT SCH ×3 (09:31→21:05)
--- NOTE | 2018-03-23 09:49 | OPERATIVE REPORT ---
DATE OF OPERATION: 03/23/2018 PREOPERATIVE DIAGNOSIS: Respiratory failure. POSTOPERATIVE DIAGNOSIS: Respiratory failure. PROCEDURE: Tracheal fenestration with rotation flaps. SURGEON: Xiomara Velazquez MD ANESTHESIA: Local with sedation. COMPLICATIONS: None. BLOOD LOSS: 5 mL. HISTORY OF PRESENT ILLNESS: An 83-year-old lady with respiratory failure after plication of the diaphragm and long history of steroid use due to COPD. The patient and the daughter both requested tracheostomy for suctioning the secretions and for better ventilation. DESCRIPTION OF PROCEDURE: The patient was brought to the operating room and placed in supine position, prepped with ChloraPrep and draped in the usual sterile manner for tracheostomy. She was sedated by anesthesia. Local anesthesia was obtained by injecting with 2% Xylocaine with 1:100,000 strength epinephrine. The inferiorly based skin flap was delineated and incised using #15 blade, carried down through the subcutaneous fat. The superior and inferior skin flaps were elevated slightly and the subcutaneous fat in the midline was excised using the Bovie to expose the strap muscles and the trachea. The bleeders were controlled using the Bovie. The thyroid and cricoid were identified. The first tracheal cartilage was retracted superiorly with the trach hook. The incision was made to the second and third tracheal rings on each side and across the space between the third and fourth tracheal ring creating a superiorly based tracheal cartilage graft of the second and third ring, which was retracted superiorly and then the skin flap from inferiorly was rotated to the inferior edge of the tracheostomy opening. These flaps were sewn in using interrupted 2-0 Prolene sutures as well as the lateral skin flaps, which were sewn to the lateral wall of the trachea with 2-0 Prolene sutures. At this point, a #8 Shiley was inserted without difficulty and the incision was closed with interrupted 4-0 nylon sutures, 2-0 Prolene was used as 4 corner sutures to sew in the tracheostomy tube. The trach tape was placed. The patient tolerated the procedure well, was taken to recovery area in satisfactory condition. I attest to the content of the Intraoperative Record and any orders documented therein. Any exception s are noted below.
--- NOTE | 2018-03-23 10:56 | Surgery Progress Note ---
Surgery Progress Note Date of Service Mar 23, 2018. Subjective Post OP Day: HD # 8 s/p tracheostomy this morning abdominal pain still present but stable compared to yesterday when asked about bowel movements states she has had none Objective Vital Signs: Date Time Temp Pulse Resp B/P (MAP) Pulse Ox O2 Delivery O2 Flow Rate FiO2 03/23/18 10:30 84 18 140/75 (96) 96 Humidified Oxygen 40 Trach Collar 03/23/18 10:00 84 18 140/75 (96) 96 Humidified Oxygen 40 Trach Collar 03/23/18 10:00 82 18 143/73 (96) 100 Humidified Oxygen 40 Trach Collar 03/23/18 09:45 84 18 143/79 (100) 100 Humidified Oxygen 40 Trach Collar 03/23/18 09:30 84 20 144/83 (103) 100 Humidified Oxygen 40 Trach Collar 03/23/18 09:15 84 20 154/71 (98) 97 Humidified Oxygen 40 Trach Collar 03/23/18 09:12 90 03/23/18 09:00 Humidified Oxygen 40 Trach Collar 03/23/18 09:00 37.2 85 18 166/85 (112) 94 Humidified Oxygen 40 Trach Collar 03/23/18 08:52 82 18 03/23/18 08:52 82 18 97 03/23/18 08:50 133/65 03/23/18 08:47 83 16 98 03/23/18 08:47 82 16 03/23/18 08:46 36.0 96 Trach Collar 5 03/23/18 08:45 128/63 03/23/18 08:42 79 15 03/23/18 08:42 82 15 98 03/23/18 08:41 82 14 03/23/18 08:41 81 14 117/71 97 18 08:36 83 14 127/72 97 18 08:36 82 14 03/23/18 08:31 83 14 129/57 98 18 08:31 82 14 03/23/18 08:26 83 10 150/95 98 18 08:26 83 10 03/23/18 08:21 86 21 03/23/18 08:21 86 21 100 03/23/18 08:20 140/62 03/23/18 08:17 109/80 03/23/18 08:16 85 14 100 03/23/18 08:16 36.2 86 17 109/80 100 Trach Collar 10 03/23/18 08:16 84 14 03/23/18 04:00 Nasal Cannula 03/23/18 03:56 36.5 78 17 121/68 (85) 98 Nasal Cannula 3.0 03/23/18 02:12 74 14 98 Nasal Cannula 3.0 03/23/18 00:00 Nasal Cannula 03/22/18 23:56 36.9 81 16 143/67 (92) 98 Nasal Cannula 3.0 03/22/18 20:00 Nasal Cannula 03/22/18 19:33 37.0 82 20 109/68 (82) 100 Nebulizer 03/22/18 19:29 84 16 98 Nasal Cannula 3.0 03/22/18 16:00 Nasal Cannula 3.0 03/22/18 15:18 36.8 80 16 108/68 (81) 98 Nasal Cannula 3.0 03/22/18 14:17 83 18 98 Nasal Cannula 3.0 03/22/18 12:15 112/68 (83) 03/22/18 12:00 Nasal Cannula 3.0 03/22/18 11:26 37.2 84 20 90/54 (66) 99 Nasal Cannula 3.0 General Appearance: + mild distress Head: normocephalic, atraumatic Neck: + pertinent finding (Tracheostomy present) Respiratory/Chest: no respiratory distress, no accessory muscle use Abdomen: non distended, soft, no organomegaly, no pulsatile mass, + tenderness (generalzed, no peritonitis) Laboratory Results: Results Past 24 Hours Test 03/22/18 16:26 03/22/18 20:23 03/23/18 05:07 03/23/18 06:32 Range/Units Bedside Glucose 249 213 129 70-90 mg/dl White Blood Count 4.52 4.8-10.8 K/uL Red Blood Count 3.23 4.2-5.4 M/uL Hemoglobin 9.9 12.0-16.0 g/dL Hematocrit 31.2 37-47 % Mean Corpuscular Volume 96.6 80-100 fL Mean Corpuscular Hemoglobin 30.7 25-34 pg Mean Corpuscular Hemoglobin Concent 31.7 32-36 g/dl RDW Standard Deviation 59.3 36.4-46.3 fL RDW Coefficient of Variation 16.8 11.5-14.5 % Platelet Count 138 130-400 K/uL Mean Platelet Volume 10.7 7.4-10.4 fL Nucleated RBC Absolute Count (auto) 0.02 0-0 K/uL Nucleated Red Blood Cells % 0.5 % Assessment & Plan Abdominal pain Constipation - CT scan of abdomen and pelvis x 2 with no intra-abdominal findings - Gallbladder US normal - CT scan suggestive of Constipation with moderate stool burden in colon - abdomen is soft, nondistended, lactic acid Monday 1.0 Plan: No acute surgical intervention required continue current medical management Aggressive bowel regimen recommended if can tolerate Dr. Hurd has seen and examined patient, agrees with above
--- NOTE | 2018-03-23 11:17 | Anesthesiology Progress Note ---
Anesthesia Post Op Note Date & Time Mar 23, 2018 at 11:17 Vital Signs Pain Intensity: 4 Vital Signs Past 12 Hours Date Time Temp Pulse Resp B/P (MAP) Pulse Ox O2 Delivery O2 Flow Rate FiO2 03/23/18 11:00 86 22 138/69 (92) 100 Humidified Oxygen 40 Trach Collar 03/23/18 10:30 84 18 140/75 (96) 96 Humidified Oxygen 40 Trach Collar 03/23/18 10:00 84 18 140/75 (96) 96 Humidified Oxygen 40 Trach Collar 03/23/18 10:00 82 18 143/73 (96) 100 Humidified Oxygen 40 Trach Collar 03/23/18 09:45 84 18 143/79 (100) 100 Humidified Oxygen 40 Trach Collar 03/23/18 09:30 84 20 144/83 (103) 100 Humidified Oxygen 40 Trach Collar 03/23/18 09:15 84 20 154/71 (98) 97 Humidified Oxygen 40 Trach Collar 03/23/18 09:12 90 03/23/18 09:00 Humidified Oxygen 40 Trach Collar 03/23/18 09:00 37.2 85 18 166/85 (112) 94 Humidified Oxygen 40 Trach Collar 03/23/18 08:52 82 18 03/23/18 08:52 82 18 97 03/23/18 08:50 133/65 03/23/18 08:47 83 16 98 03/23/18 08:47 82 16 03/23/18 08:46 36.0 96 Trach Collar 5 03/23/18 08:45 128/63 03/23/18 08:42 79 15 03/23/18 08:42 82 15 98 03/23/18 08:41 82 14 03/23/18 08:41 81 14 117/71 97 03/23/18 08:36 83 14 127/72 97 03/23/18 08:36 82 14 03/23/18 08:31 83 14 129/57 98 03/23/18 08:31 82 14 03/23/18 08:26 83 10 150/95 98 03/23/18 08:26 83 10 03/23/18 08:21 86 21 03/23/18 08:21 86 21 100 03/23/18 08:20 140/62 03/23/18 08:17 109/80 03/23/18 08:16 85 14 100 03/23/18 08:16 36.2 86 17 109/80 100 Trach Collar 10 03/23/18 08:16 84 14 03/23/18 04:00 Nasal Cannula 03/23/18 03:56 36.5 78 17 121/68 (85) 98 Nasal Cannula 3.0 03/23/18 02:12 74 14 98 Nasal Cannula 3.0 03/23/18 00:00 Nasal Cannula 03/22/18 23:56 36.9 81 16 143/67 (92) 98 Nasal Cannula 3.0 Notes Mental Status: alert / awake / arousable, participated in evaluation Pt Amnestic to Procedure: Yes Nausea / Vomiting: adequately controlled Pain: adequately controlled Airway Patency, RR, SpO2: stable & adequate BP & HR: stable & adequate Hydration State: stable & adequate Anesthetic Complications: no major complications apparent
[2018-03-23] MEDS: HYDROmorphone INJ 0.5 MG/0.5 ML SYR IV PRN ×2 (12:03→19:54)
[2018-03-23] MEDS ORDERED: NURSING VERBAL MED ORDER ONE (13:15)
[2018-03-23] MEDS ORDERED: METHYLPREDNISOLONE 40 MG in SYRINGE 0 ML IV ONE (13:30)
--- NOTE | 2018-03-23 15:14 | Hospitalist Progress Note ---
Hospitalist Progress Note Date of Service Mar 23, 2018. Subjective Pt evaluation today including: conversation w/ patient, conversation w/ bridal sales consultant (Pulmonology) Patient had tracheostomy placed today. Reports she is having some pain but doing okay. Reports she saw some right upper quadrant abdominal pain but not terrible. RN reports she was coughing and choking when she tried to take her meds earlier so we held off and her morning meds. All Other Systems: Reviewed and Negative Objective Vital Signs Date Time Temp Pulse Resp B/P (MAP) Pulse Ox O2 Delivery O2 Flow Rate FiO2 03/23/18 13:10 88 20 98 Trach Collar 10.0 30 03/23/18 12:00 Humidified Oxygen 40 Trach Collar 03/23/18 11:45 37.4 03/23/18 11:00 86 22 138/69 (92) 100 Humidified Oxygen 40 Trach Collar 03/23/18 10:30 84 18 140/75 (96) 96 Humidified Oxygen 40 Trach Collar 03/23/18 10:00 84 18 140/75 (96) 96 Humidified Oxygen 40 Trach Collar 03/23/18 10:00 82 18 143/73 (96) 100 Humidified Oxygen 40 Trach Collar 03/23/18 09:45 84 18 143/79 (100) 100 Humidified Oxygen 40 Trach Collar 03/23/18 09:30 84 20 144/83 (103) 100 Humidified Oxygen 40 Trach Collar 03/23/18 09:15 84 20 154/71 (98) 97 Humidified Oxygen 40 Trach Collar 03/23/18 09:12 90 03/23/18 09:00 Humidified Oxygen 40 Trach Collar 03/23/18 09:00 37.2 85 18 166/85 (112) 94 Humidified Oxygen 40 Trach Collar 03/23/18 08:52 82 18 03/23/18 08:52 82 18 97 03/23/18 08:50 133/65 03/23/18 08:47 83 16 98 03/23/18 08:47 82 16 03/23/18 08:46 36.0 96 Trach Collar 5 03/23/18 08:45 128/63 03/23/18 08:42 79 15 03/23/18 08:42 82 15 98 03/23/18 08:41 82 14 03/23/18 08:41 81 14 117/71 97 03/23/18 08:36 83 14 127/72 97 03/23/18 08:36 82 14 03/23/18 08:31 83 14 129/57 98 03/23/18 08:31 82 14 03/23/18 08:26 83 10 150/95 98 03/23/18 08:26 83 10 03/23/18 08:21 86 21 03/23/18 08:21 86 21 100 03/23/18 08:20 140/62 03/23/18 08:17 109/80 03/23/18 08:16 85 14 100 03/23/18 08:16 36.2 86 17 109/80 100 Trach Collar 10 03/23/18 08:16 84 14 03/23/18 04:00 Nasal Cannula 03/23/18 03:56 36.5 78 17 121/68 (85) 98 Nasal Cannula 3.0 03/23/18 02:12 74 14 98 Nasal Cannula 3.0 03/23/18 00:00 Nasal Cannula 03/22/18 23:56 36.9 81 16 143/67 (92) 98 Nasal Cannula 3.0 03/22/18 20:00 Nasal Cannula 03/22/18 19:33 37.0 82 20 109/68 (82) 100 Nebulizer 03/22/18 19:29 84 16 98 Nasal Cannula 3.0 03/22/18 16:00 Nasal Cannula 3.0 03/22/18 15:18 36.8 80 16 108/68 (81) 98 Nasal Cannula 3.0 Physical Exam General Appearance: WD/WN, no apparent distress, + obese Eyes: normal inspection, sclerae normal ENT: hearing grossly normal, + pertinent finding (Tracheostomy in place) Neck: trachea midline Respiratory/Chest: no respiratory distress, no accessory muscle use, + rhonchi (At the upper airways) Cardiovascular: regular rate, rhythm, no edema, + systolic murmur Abdomen: normal bowel sounds, non tender, soft, no organomegaly Extremities: non-tender, normal inspection, no pedal edema, no calf tenderness Neurologic/Psychiatric: alert, normal mood/affect Skin: normal color, warm/dry, no rash Laboratory Results Last 24 Hours Test 03/22/18 16:26 03/22/18 20:23 03/23/18 05:07 03/23/18 06:32 Bedside Glucose 249 mg/dl 213 mg/dl 129 mg/dl White Blood Count 4.52 K/uL Red Blood Count 3.23 M/uL Hemoglobin 9.9 g/dL Hematocrit 31.2 % Mean Corpuscular Volume 96.6 fL Mean Corpuscular Hemoglobin 30.7 pg Mean Corpuscular Hemoglobin Concent 31.7 g/dl RDW Standard Deviation 59.3 fL RDW Coefficient of Variation 16.8 % Platelet Count 138 K/uL Mean Platelet Volume 10.7 fL Nucleated RBC Absolute Count (auto) 0.02 K/uL Nucleated Red Blood Cells % 0.5 % Test 03/23/18 11:12 Bedside Glucose 122 mg/dl Assessment and Plan 83yo female: 1. encephalopathy - resolved. Suspect it was toxic from recent pain meds/benzos as well as metabolic from the lactic acidosis and severe constipation. CT head, ammonia, VBG, blood cultures, etc were all normal. 2. new-onset a. fib - converted to NSR and has remained in NSR with amiodarone. Continue oral amiodarone 200mg tid until 03/29 and then reduced to 200 mg once daily Hold lovenox bridge due to trach placement today-restart when okay with surgery versus going back to [facility] 3. abdominal pain with lactic acidosis - 03/15/[address] without pathology. Lactate now normal CT 03/20/18 normal except for moderate constipation. There has been NO signs of an ischemic bowel process. Gall bladder w/u was negative. She passed a rock-solid stool this admission and despite such still had copious stool on MONTY. Did she have a low-grade stercolitis? This certainly could have caused abd pain , lactic acidosis, and confusion. Appreciate gen surg consult. Nothing surgical at this time. continue aggressive bowel regimen. LFTs, lipase, sed rate, and crp have been reassuring.. 4. chronic hypoxic respiratory failure - stable on home O2 amount-currently on trach collar. No evidence of complicating pneumonia at this time. 5. right-sided chest/abd pain at admission - etiology uncertain; ACS was ruled out; PE was ruled out. See #3 above. I believe the abdominal pain was likely due to severe constipation. 6. ?UTI - ruled out; abx stopped. 7. recommendation for trach - I spoke with Dr. Khalil and Dr. Velazquez multiple times this week; Dr. Khalil has recommended trach placement due to concern she cannot handle her own secretions and is aspirating these. Dr. Velazquez took her to the OR today for tracheostomy Eliquis and lovenox bridge both on hold. -Further trach care as per pulmonary and ENT -Overnight oximetry test tonight on trach collar to determine if will need vent at nighttime 7. COPD - steroid dependent; recently weaned to prednisone 30 mg-give 1 dose IV site Medrol today as she was not able to take her morning prednisone dose 8. H/O DVTs - noted; remains on anticoagulation which is on hold for surgery. 9. CKD stage 3 - creatinine stable. 10. Hypothyroidism - compensated; cont synthroid. 11. T2DM - controlled. 12. chronic diastolic CHF - compensated 13. right-sided elevated Hemidiaphragm - S/P Plication in the past. 14. elevated lactate level - due to #3 above? resolved. 15. HTN - controlled with current meds. Disposition-remain on telemetry
--- NOTE | 2018-03-23 17:51 | Pulmonology Progress Note ---
Pulmonary Progress Note Date of Service Mar 23, 2018. Attending Dr. Khalil Subjective Patient was asleep but easily arousable note she has some minor neck discomfort but otherwise is doing well status post tracheostomy: Objective Sleeping in bed status post tracheostomy shows no signs of respiratory insufficiency as I walked into the room patient was saturating at 98 % on trach collar: Vital signs: Stable on trach collar 40 % FiO2 I/Os : +2.7L Neck: Fresh tracheostomy with size 8 Shiley/cuffed Respiratory: Clear to auscultation Cardiac: S1-S2 distant heart sounds but regular rhythm Abdomen: Positive bowel sounds soft nontender Extremities: 1+ pitting edema in the dependent regions PmHx: Pulmonary embolism, sleep apnea/OHV, COPD, oxygen dependent 2-5L, diaphragmatic insufficiency/status post fundoplication, steroid-induced myopathy , orthostatic hypotension, hypertension, sclerotic aortic valve, chronic lymphedema, paroxysmal atrial fibrillation, chronic shortness of breath, C diff positive, recurrent UTIs Procalcitonin: 0.5 CRP: 0.52 elevated Lactic acid: 1.0 CT of the abdomen 03/21/2018: Shows continuation bilateral right greater than left atelectasis, no acute changes Urine: Rabia glabrata Assessment & Plan 83-year-old female with chronic respiratory insufficiency and steroid dependence admitted with atypical chest pain with an episode of atrial fibrillation with RVR: 1. Chronic Respiratory Insufficiency: Patient has undergone diaphragmatic plication as well as most likely steroid induced myopathy/progressive respiratory insufficiency. I would like to thank Dr. Velazquez for perform tracheostomy at this time the patient is doing well. Continue to monitor. This evening will perform nocturnal desaturation study to determine if tracheostomy has of removed enough space ventilation to overcome the patient's chronic respiratory insufficiency. If she continues have desaturations at night will then initiate ventilator assistance. 2. Lactic Acidosis: Patient's lactic acidosis has returned to within normal limits. Once again the etiology is unknown. Continue to monitor. 3. PE/VTE: Patient currently on Lovenox. Medication should be discontinued the evening prior to her interventions/tracheostomy. Will defer to Dr. Velazquez when he is comfortable for re-initiating anticoagulation. Data Medications: Current Inpatient Medications Medications (Trade) Dose Ordered Sig/Natasha Route Start Time Stop Time Status Last Admin Dose Admin Acetaminophen (Tylenol Tab) 650 mg Q4H PRN PO 03/15/18 18:30 04/14/18 18:29 03/19/18 20:01 650 MG Al Hydrox/Mg Hydrox/Simethicone (Maalox Max Susp) 15 ml Q4H PRN PO 03/15/18 18:30 04/14/18 18:29 Magnesium Hydroxide (Milk Of Magnesia Susp) 30 ml Q12H PRN PO 03/15/18 18:30 04/14/18 18:29 Ondansetron HCl (Zofran Inj) 4 mg Q6H PRN IV 03/15/18 18:30 04/14/18 18:29 Polyethylene (Miralax Powder Packet) 17 gm DAILY PRN PO 03/15/18 18:30 04/14/18 18:29 03/21/18 09:02 17 GM Albuterol Sulfate (Ventolin 0.083% 2.5MG/3ML Neb) 2.5 mg Q4H PRN INH 03/15/18 18:30 04/14/18 18:29 Albuterol/ Ipratropium (Duoneb) 3 ml Q6R NEB 03/15/18 21:00 04/14/18 20:59 03/23/18 13:07 3 ML Butalbital/ Aspirin/Caffeine (Fiorinal Tab/ CAP) 1 tab Q4 PRN PO 03/15/18 20:00 04/14/18 19:59 03/17/18 08:17 1 TAB Calcitriol (Rocaltrol Cap) 0.25 mcg DAILY PO 03/16/18 09:00 04/15/18 08:59 03/22/18 08:19 0.25 MCG Cholecalciferol (Vitamin D Tab) 1,000 inter.unit DAILY PO 03/16/18 09:00 04/15/18 08:59 03/22/18 08:21 1,000 INTER.UNIT Citalopram Hydrobromide (celeXA TAB) 30 mg DAILY PO 03/16/18 09:00 04/15/18 08:59 03/22/18 08:20 30 MG Diclofenac Sodium (Voltaren 1% Top Gel) 1 appln QID PRN EXT 03/15/18 19:30 04/14/18 19:29 03/18/18 08:30 1 APPLN Gabapentin (Neurontin Cap) 300 mg BID PO 03/15/18 21:00 04/14/18 20:59 03/22/18 21:06 300 MG Levothyroxine Sodium (Synthroid Tab) 100 mcg DAILYBB PO 03/16/18 06:00 04/15/18 06:59 03/23/18 05:55 100 MCG Lorazepam (Ativan Tab) 0.25 mg for mild anxiety/ sl... Q6 PRN PO 03/15/18 18:30 04/14/18 18:29 Future Hold 03/18/18 21:12 0.25 MG Nystatin (Mycostatin Powder) 1 appln TID EXT 03/15/18 21:00 04/14/18 20:59 03/23/18 12:15 1 APPLN Ropinirole HCl (Requip Tab) 0.5 mg HS PO 03/15/18 21:00 04/14/18 20:59 03/22/18 21:06 0.5 MG Simvastatin (Zocor Tab) 20 mg HS PO 03/15/18 21:00 04/14/18 20:59 03/22/18 21:06 20 MG Sucralfate (Carafate Susp) 1 gm QID PO 03/15/18 21:00 04/14/18 20:59 03/22/18 21:06 1 GM Tramadol HCl (Ultram Tab) 50 mg Q6H PRN PO 03/15/18 18:30 04/14/18 18:29 03/22/18 11:41 50 MG Apixaban (Eliquis Tab) 5 mg BID PO 03/15/18 21:00 04/14/18 20:59 Future Hold 03/19/18 08:54 5 MG Calcium Carbonate (oS-Misael 500 TAB) 2,500 mg HS PO 03/15/18 21:00 04/14/18 20:59 03/22/18 21:07 2,500 MG Cyanocobalamin (Vitamin B-12 Tab) 1,000 mcg QAM PO 03/16/18 09:00 04/15/18 08:59 03/22/18 08:18 1,000 MCG Pantoprazole Sodium (Protonix Tab) 40 mg QAM PO 03/16/18 09:00 04/15/18 08:59 03/22/18 08:18 40 MG Ferrous Sulfate (Feosol Tab) 325 mg DAILY PO 03/16/18 09:00 04/15/18 08:59 03/22/18 08:21 325 MG Miscellaneous Information (Order Awaiting Action) 1 ea QS N/A 03/16/18 00:00 04/15/18 00:00 03/18/18 18:49 1 EA Potassium Chloride (Klor-Con M10) 20 meq DAILY PO 03/16/18 09:00 04/15/18 08:59 03/22/18 08:19 20 MEQ Glucose (Glucose 40% Gel) 15-30 GRAMS 15 GRAMS... UD PRN PO 03/15/18 19:00 04/14/18 18:59 Glucose (Glucose Chew Tab) 4-8 Tablets 4 Tabl... UD PRN PO 03/15/18 19:00 04/14/18 18:59 Dextrose (Dextrose 50% 50ML Syringe) 25-50ML 25ML FOR ... UD PRN IV 03/15/18 19:00 04/14/18 18:59 Glucagon (Glucagon Inj) 1 mg UD PRN SQ 03/15/18 19:00 04/14/18 18:59 Carbohydrates (Carbohydrates For Hypoglycemia) 15-30 GRAMS 15 grams if BSG 54-69... UD PRN PO 03/15/18 19:00 04/14/18 18:59 Clonidine HCl (Catapres Tab) 0.1 mg QAM PO 03/18/18 09:00 04/17/18 08:59 03/22/18 08:21 0.1 MG Heparin Sodium (Porcine) (Heparin 10 Unit/ ml 5 ml Flush) 5 ml PRN PRN FLUSH 03/20/18 00:30 04/19/18 00:29 Enoxaparin Sodium (Lovenox Inj) 80 mg Q12 SQ 03/20/18 16:00 04/19/18 20:59 Future Hold 03/22/18 08:22 80 MG Amiodarone HCl (Cordarone Tab) 200 mg TID PO 03/20/18 21:00 03/28/18 23:59 03/22/18 21:07 200 MG Amiodarone HCl (Cordarone Tab) 200 mg DAILY PO 03/29/18 09:00 04/28/18 08:59 Insulin Aspart (novoLOG ASPART) SLIDING SCALE If C... ACHS SC 03/21/18 16:15 04/20/18 16:14 03/22/18 21:17 2 UNITS Tiotropium [place] (Spiriva Respimat) 2 puff BID INH 03/21/18 21:00 04/20/18 20:59 03/22/18 21:08 2 PUFF Non-Formulary Medication (Non-Formulary Patient'S Own Med) 1 ea DAILY PO 03/22/18 09:00 04/21/18 08:59 03/22/18 08:21 1 EA Prednisone (PredniSONE TAB) 30 mg DAILY PO 03/22/18 09:00 04/17/18 08:59 03/22/18 10:45 30 MG Hydromorphone HCl (Dilaudid Inj) 0.25 mg Q1H PRN IV 03/23/18 11:30 04/06/18 11:29 03/23/18 12:03 0.25 MG I & O: 24-Hour Column 03/24/18 07:59 Intake Total 450 ml Output Total 5 ml Balance 445 ml Vital Signs: Date Time Temp Pulse Resp B/P (MAP) Pulse Ox O2 Delivery O2 Flow Rate FiO2 03/23/18 16:00 Humidified Oxygen 40 Trach Collar 03/23/18 15:44 37.2 81 18 144/77 (99) 94 Trach Collar 10.0 03/23/18 13:10 88 20 98 Trach Collar 10.0 30 03/23/18 12:00 Humidified Oxygen 40 Trach Collar 03/23/18 11:45 37.4 03/23/18 11:00 86 22 138/69 (92) 100 Humidified Oxygen 40 Trach Collar 03/23/18 10:30 84 18 140/75 (96) 96 Humidified Oxygen 40 Trach Collar 03/23/18 10:00 84 18 140/75 (96) 96 Humidified Oxygen 40 Trach Collar 03/23/18 10:00 82 18 143/73 (96) 100 Humidified Oxygen 40 Trach Collar 03/23/18 09:45 84 18 143/79 (100) 100 Humidified Oxygen 40 Trach Collar 03/23/18 09:30 84 20 144/83 (103) 100 Humidified Oxygen 40 Trach Collar 03/23/18 09:15 84 20 154/71 (98) 97 Humidified Oxygen 40 Trach Collar 03/23/18 09:12 90 03/23/18 09:00 Humidified Oxygen 40 Trach Collar 03/23/18 09:00 37.2 85 18 166/85 (112) 94 Humidified Oxygen 40 Trach Collar 03/23/18 08:52 82 18 03/23/18 08:52 82 18 97 03/23/18 08:50 133/65 03/23/18 08:47 83 16 98 03/23/18 08:47 82 16 03/23/18 08:46 36.0 96 Trach Collar 5 03/23/18 08:45 128/63 03/23/18 08:42 79 15 03/23/18 08:42 82 15 98 03/23/18 08:41 82 14 03/23/18 08:41 81 14 117/71 97 03/23/18 08:36 83 14 127/72 97 03/23/18 08:36 82 14 03/23/18 08:31 83 14 129/57 98 03/23/18 08:31 82 14 03/23/18 08:26 83 10 150/95 98 03/23/18 08:26 83 10 03/23/18 08:21 86 21 03/23/18 08:21 86 21 100 03/23/18 08:20 140/62 03/23/18 08:17 109/80 03/23/18 08:16 85 14 100 03/23/18 08:16 36.2 86 17 109/80 100 Trach Collar 10 03/23/18 08:16 84 14 03/23/18 04:00 Nasal Cannula 03/23/18 03:56 36.5 78 17 121/68 (85) 98 Nasal Cannula 3.0 03/23/18 02:12 74 14 98 Nasal Cannula 3.0 03/23/18 00:00 Nasal Cannula 03/22/18 23:56 36.9 81 16 143/67 (92) 98 Nasal Cannula 3.0 03/22/18 20:00 Nasal Cannula 03/22/18 19:33 37.0 82 20 109/68 (82) 100 Nebulizer 03/22/18 19:29 84 16 98 Nasal Cannula 3.0 Laboratory Results: Last 24 Hours Test 03/22/18 20:23 03/23/18 05:07 03/23/18 06:32 03/23/18 11:12 Bedside Glucose 213 mg/dl 129 mg/dl 122 mg/dl White Blood Count 4.52 K/uL Red Blood Count 3.23 M/uL Hemoglobin 9.9 g/dL Hematocrit 31.2 % Mean Corpuscular Volume 96.6 fL Mean Corpuscular Hemoglobin 30.7 pg Mean Corpuscular Hemoglobin Concent 31.7 g/dl RDW Standard Deviation 59.3 fL RDW Coefficient of Variation 16.8 % Platelet Count 138 K/uL Mean Platelet Volume 10.7 fL Nucleated RBC Absolute Count (auto) 0.02 K/uL Nucleated Red Blood Cells % 0.5 % Test 03/23/18 16:37 Bedside Glucose 180 mg/dl
[2018-03-23] MEDS ORDERED: CASPOFUNGIN INJ 70 MG in SODIUM CHLORIDE 0.9% 250ML 250 ML IV ONE (19:00)
[2018-03-23] MEDS: CALCIUM CARBONATE 1250MG TAB PO SCH (21:00)
[2018-03-23] MEDS: ROPINIROLE HCL 0.25 MG TAB PO SCH (21:00)
[2018-03-23] MEDS: SIMVASTATIN 20 MG TAB PO SCH (21:00)
[2018-03-24] VITALS (11 sets, daily range): BP systolic 106–169; BP diastolic 67–84; PULSE 83–107; TEMP 36.7–38.2; O2SAT 86–96
[2018-03-24] MEDS: ALBUT/IPRATROP 3MG/0.5MG NEB 3 ML VIAL NEB SCH ×3 (02:15→15:01)
[2018-03-24] MEDS: HYDROmorphone INJ 0.5 MG/0.5 ML SYR IV PRN ×3 (03:13→20:02)
[2018-03-24] MEDS: LEVOTHYROXINE 100 MCG TAB PO SCH (06:00)
[2018-03-24 06:04] LABS: BASO % 0.1 %; BASO ABS # 0.01 K/uL (0-0.2); HEMATOCRIT 37.1 % (37-47); HEMOGLOBIN 11.8 g/dL (12.0-16.0); IG# 0.27 K/uL (0.00-0.02); LYMPH ABS # 1.22 K/uL (1.2-3.4); MEAN CELL VOLUME 94.9 fL (80-100); MEAN CORPUSCULAR HEMOGLOBIN 30.2 pg (25-34); MEAN CORPUSCULAR HGB CONC 31.8 g/dl (32-36); MEAN PLATELET VOLUME 11.4 fL (7.4-10.4); MONO % 7.9 %; NEUT % 77.3 %; NEUT ABS # 7.86 K/uL (1.4-6.5); NUCLEATED RED BLOOD CELL ABS 0.04 K/uL (0-0); PLATELET COUNT 165 K/uL (130-400); RED CELL DISTRIBUTION WIDTH CV 16.6 % (11.5-14.5); RED CELL DISTRIBUTION WIDTH SD 57.3 fL (36.4-46.3); WHITE BLOOD COUNT 10.16 K/uL (4.8-10.8)
[2018-03-24 06:42] LABS: CALCIUM 8.4 mg/dl (8.5-10.1); CREATININE 1.02 mg/dl (0.60-1.20); POTASSIUM 3.7 mmol/L (3.5-5.1)
[2018-03-24] MEDS: INSULIN ASPART 100 UNITS/ML 3 ML PEN SC SCH ×4 (07:00→21:26)
[2018-03-24 08:19] LABS: HEMOGLOBIN A1C 7.1 % (4.5-5.6)
[2018-03-24] MEDS: SUCRALFATE 1 GM/10 ML UDC PO SCH ×4 (09:00→21:00)
[2018-03-24] MEDS ORDERED: LEVOTHYROXINE SODIUM INJ 50 MCG in SYRINGE 0 ML IV ONE (09:30)
[2018-03-24] MEDS ORDERED: METHYLPREDNISOLONE IV 40 MG in SYRINGE 0 ML IV ONE (09:30)
--- NOTE | 2018-03-24 10:54 | Pulmonology Progress Note ---
Pulmonary Progress Note Date of Service Mar 24, 2018. Attending Dr. Khalil Subjective Patient notes no change in overall respiratory status but does have increasing secretions via her tracheostomy: Objective Saturating at 95% on trach collar when I walked into the room sleeping snow signs of respiratory distress/insufficiency: Patient notes no increased work of breathing but notable tracheal secretions PmHx: Pulmonary embolism, sleep apnea/OHV, COPD, oxygen dependent 2-5L, diaphragmatic insufficiency/status post fundoplication, steroid-induced myopathy , orthostatic hypotension, hypertension, sclerotic aortic valve, chronic lymphedema, paroxysmal atrial fibrillation, chronic shortness of breath, C diff positive, recurrent UTIs Vital Signs/Physical Exam: SaO2: 91-95 % on Ventimask 35 % Tmax: 37.5 Neck: Fresh tracheostomy minimal bleeding no signs of breakdown Tracheostomy: Large quantity of mucus, suctioned to 14 centimeters notable mucus secretions Respiratory: Rhonchi appreciated right lower lobe Cardiac: S1-S2 Abdomen: Positive bowel sounds soft nontender Labs: Procalcitonin: 0.5 CRP: 0.52 elevated Lactic acid: 1.0 WBC: 10K (Neutro #: 7.86) CT of the abdomen 03/21/2018: Shows continuation bilateral right greater than left atelectasis, no acute changes Urine: Rabia glabrata Current Pulmonary Medications/antibiotics/antifungals: 1. Methylprednisolone 40 mg IV daily 2. Caspofungin 50 mg Q 24 3. Spiriva 2 puffs b.i.d. 4. Pantoprazole 40 mg q.day 5. Duo nebs q.6 hours Microbiology URINE: (07/24/15) Escherichia coli (09/01/15) Enterococcus faecalis (12/08/15) Lactobacillus species (11/25/16) Citrobacter species (07/07/17) Escherichia coli (07/24/17) Escherichia coli (03/20/18) Rabia Glabrata Respiratory Bronchial washing (06/29/2010) MRSA Bronchial washing left upper lobe (01/25/16) Fungal Species Right lower lobe bronchial washing (06/30/16) Fungal Species Bronchial washing right middle lobe (11/28/16) MRSA Bronchial washing right middle (01/15/17) Fungal Species Bronchial washing right and left lower lobe (10/09/2017) Bordetella Bronchiseptica Blood (04/24/16) Propionibacterium acnes Skin (04/17/17) right lower extremity: Pseudomonas aeruginosa, Enterococcus faecalis Stool C. difficile testing for 06/07/2018: Positive Assessment & Plan 83-year-old female with chronic respiratory insufficiency and steroid dependence admitted with atypical chest pain with an episode of atrial fibrillation with RVR: 1. Chronic Respiratory Insufficiency: Patient has undergone diaphragmatic plication as well as most likely steroid induced myopathy/progressive respiratory insufficiency. I would like to thank Dr. Velazquez for perform tracheostomy at this time the patient is doing well. Unable to perform nocturnal desaturation study is patient had a poor night sleep. At this time please perform continuous pulse oximetry when the patient is asleep at any time during the day. If the study does show hypoventilation when the patient is sleeping will then initiate mechanical ventilation. 2. Lactic Acidosis: Patient's lactic acidosis has returned to within normal limits. Once again the etiology is unknown. Continue to monitor. 3. PE/VTE: Patient currently on Lovenox. Medication should be discontinued the evening prior to her interventions/tracheostomy. Will defer to Dr. Velazquez when he is comfortable for re-initiating anticoagulation. 4. Tracheal Secretions: Patient having increased dark tracheal secretions with suctioning. Does have a mild fever and leukocytosis. The team is ordering a high-resolution CT scan of the lungs. Will order tracheal suction send off for microbiologic analysis at this time and then initiate antibiotics in tell microbiology returns. Will start the patient on cefepime and vancomycin at this time she has a history of MRSA. Data Medications: Current Inpatient Medications Medications (Trade) Dose Ordered Sig/Natasha Route Start Time Stop Time Status Last Admin Dose Admin Acetaminophen (Tylenol Tab) 650 mg Q4H PRN PO 03/15/18 18:30 04/14/18 18:29 03/19/18 20:01 650 MG Al Hydrox/Mg Hydrox/Simethicone (Maalox Max Susp) 15 ml Q4H PRN PO 03/15/18 18:30 04/14/18 18:29 Magnesium Hydroxide (Milk Of Magnesia Susp) 30 ml Q12H PRN PO 03/15/18 18:30 04/14/18 18:29 Ondansetron HCl (Zofran Inj) 4 mg Q6H PRN IV 03/15/18 18:30 04/14/18 18:29 Polyethylene (Miralax Powder Packet) 17 gm DAILY PRN PO 03/15/18 18:30 04/14/18 18:29 03/21/18 09:02 17 GM Albuterol Sulfate (Ventolin 0.083% 2.5MG/3ML Neb) 2.5 mg Q4H PRN INH 03/15/18 18:30 04/14/18 18:29 Albuterol/ Ipratropium (Duoneb) 3 ml Q6R NEB 03/15/18 21:00 04/14/18 20:59 03/24/18 07:26 3 ML Butalbital/ Aspirin/Caffeine (Fiorinal Tab/ CAP) 1 tab Q4 PRN PO 03/15/18 20:00 04/14/18 19:59 03/17/18 08:17 1 TAB Calcitriol (Rocaltrol Cap) 0.25 mcg DAILY PO 03/16/18 09:00 04/15/18 08:59 03/22/18 08:19 0.25 MCG Cholecalciferol (Vitamin D Tab) 1,000 inter.unit DAILY PO 03/16/18 09:00 04/15/18 08:59 03/22/18 08:21 1,000 INTER.UNIT Citalopram Hydrobromide (celeXA TAB) 30 mg DAILY PO 03/16/18 09:00 04/15/18 08:59 03/22/18 08:20 30 MG Diclofenac Sodium (Voltaren 1% Top Gel) 1 appln QID PRN EXT 03/15/18 19:30 04/14/18 19:29 03/18/18 08:30 1 APPLN Gabapentin (Neurontin Cap) 300 mg BID PO 03/15/18 21:00 04/14/18 20:59 03/22/18 21:06 300 MG Levothyroxine Sodium (Synthroid Tab) 100 mcg DAILYBB PO 03/16/18 06:00 04/15/18 06:59 Future Hold 03/23/18 05:55 100 MCG Lorazepam (Ativan Tab) 0.25 mg for mild anxiety/ sl... Q6 PRN PO 03/15/18 18:30 04/14/18 18:29 Future Hold 03/18/18 21:12 0.25 MG Nystatin (Mycostatin Powder) 1 appln TID EXT 03/15/18 21:00 04/14/18 20:59 03/23/18 21:05 1 APPLN Ropinirole HCl (Requip Tab) 0.5 mg HS PO 03/15/18 21:00 04/14/18 20:59 03/22/18 21:06 0.5 MG Simvastatin (Zocor Tab) 20 mg HS PO 03/15/18 21:00 04/14/18 20:59 03/22/18 21:06 20 MG Sucralfate (Carafate Susp) 1 gm QID PO 03/15/18 21:00 04/14/18 20:59 03/22/18 21:06 1 GM Tramadol HCl (Ultram Tab) 50 mg Q6H PRN PO 03/15/18 18:30 04/14/18 18:29 03/22/18 11:41 50 MG Apixaban (Eliquis Tab) 5 mg BID PO 03/15/18 21:00 04/14/18 20:59 Future Hold 03/19/18 08:54 5 MG Calcium Carbonate (oS-Misael 500 TAB) 2,500 mg HS PO 03/15/18 21:00 04/14/18 20:59 03/22/18 21:07 2,500 MG Cyanocobalamin (Vitamin B-12 Tab) 1,000 mcg QAM PO 03/16/18 09:00 04/15/18 08:59 03/22/18 08:18 1,000 MCG Pantoprazole Sodium (Protonix Tab) 40 mg QAM PO 03/16/18 09:00 04/15/18 08:59 03/22/18 08:18 40 MG Ferrous Sulfate (Feosol Tab) 325 mg DAILY PO 03/16/18 09:00 04/15/18 08:59 03/22/18 08:21 325 MG Miscellaneous Information (Order Awaiting Action) 1 ea QS N/A 03/16/18 00:00 04/15/18 00:00 03/18/18 18:49 1 EA Potassium Chloride (Klor-Con M10) 20 meq DAILY PO 03/16/18 09:00 04/15/18 08:59 03/22/18 08:19 20 MEQ Glucose (Glucose 40% Gel) 15-30 GRAMS 15 GRAMS... UD PRN PO 03/15/18 19:00 04/14/18 18:59 Glucose (Glucose Chew Tab) 4-8 Tablets 4 Tabl... UD PRN PO 03/15/18 19:00 04/14/18 18:59 Dextrose (Dextrose 50% 50ML Syringe) 25-50ML 25ML FOR ... UD PRN IV 03/15/18 19:00 04/14/18 18:59 Glucagon (Glucagon Inj) 1 mg UD PRN SQ 03/15/18 19:00 04/14/18 18:59 Carbohydrates (Carbohydrates For Hypoglycemia) 15-30 GRAMS 15 grams if BSG 54-69... UD PRN PO 03/15/18 19:00 04/14/18 18:59 Clonidine HCl (Catapres Tab) 0.1 mg QAM PO 03/18/18 09:00 04/17/18 08:59 03/22/18 08:21 0.1 MG Heparin Sodium (Porcine) (Heparin 10 Unit/ ml 5 ml Flush) 5 ml PRN PRN FLUSH 03/20/18 00:30 04/19/18 00:29 Enoxaparin Sodium (Lovenox Inj) 80 mg Q12 SQ 03/20/18 16:00 04/19/18 20:59 Future Hold 03/22/18 08:22 80 MG Amiodarone HCl (Cordarone Tab) 200 mg TID PO 03/20/18 21:00 03/28/18 23:59 03/22/18 21:07 200 MG Amiodarone HCl (Cordarone Tab) 200 mg DAILY PO 03/29/18 09:00 04/28/18 08:59 Insulin Aspart (novoLOG ASPART) SLIDING SCALE If C... ACHS SC 03/21/18 16:15 04/20/18 16:14 03/23/18 21:05 2 UNITS Tiotropium Stanley (Spiriva Respimat) 2 puff BID INH 03/21/18 21:00 04/20/18 20:59 03/23/18 21:06 2 PUFF Non-Formulary Medication (Non-Formulary Patient'S Own Med) 1 ea DAILY PO 03/22/18 09:00 04/21/18 08:59 03/22/18 08:21 1 EA Prednisone (PredniSONE TAB) 30 mg DAILY PO 03/22/18 09:00 04/17/18 08:59 Future Hold 03/22/18 10:45 30 MG Hydromorphone HCl (Dilaudid Inj) 0.25 mg Q1H PRN IV 03/23/18 11:30 04/06/18 11:29 03/24/18 03:13 0.25 MG Caspofungin 50 mg/ Sodium Chloride 260 ml @ 250 mls/hr Q24H IV 03/24/18 18:00 03/29/18 18:14 Levothyroxine Sodium 50 mcg/ Syringe 2.5 ml @ 2 mls/min DAILY@09 IV 03/25/18 09:00 04/24/18 08:59 Methylprednisolone Sodium Succinate 40 mg/Syringe 0.64 ml @ 1.5 mls/min DAILY IV 03/25/18 09:00 04/24/18 08:59 Potassium Chloride 100 ml @ 100 mls/hr Q1H IV 03/24/18 09:30 03/24/18 11:29 Vital Signs: Date Time Temp Pulse Resp B/P (MAP) Pulse Ox O2 Delivery O2 Flow Rate FiO2 03/24/18 07:54 37.1 101 20 153/84 (107) 95 Trach Collar 35 03/24/18 02:44 37.5 98 20 169/80 (109) 91 Trach Collar 03/23/18 22:56 37.5 93 20 168/85 (112) 92 Trach Collar 6.0 03/23/18 20:46 37.5 91 22 150/80 (103) 92 Trach Collar 03/23/18 20:00 Trach Collar 28 03/23/18 19:02 99 22 Room Air 03/23/18 16:00 Humidified Oxygen 40 Trach Collar 03/23/18 15:44 37.2 81 18 144/77 (99) 94 Trach Collar 10.0 03/23/18 13:10 88 20 98 Trach Collar 10.0 30 03/23/18 12:00 Humidified Oxygen 40 Trach Collar 03/23/18 11:45 37.4 03/23/18 11:00 86 22 138/69 (92) 100 Humidified Oxygen 40 Trach Collar Laboratory Results: Last 24 Hours Test 03/23/18 11:12 03/23/18 16:37 03/23/18 20:52 03/24/18 05:47 Bedside Glucose 122 mg/dl 180 mg/dl 212 mg/dl White Blood Count 10.16 K/uL Red Blood Count 3.91 M/uL Hemoglobin 11.8 g/dL Hematocrit 37.1 % Mean Corpuscular Volume 94.9 fL Mean Corpuscular Hemoglobin 30.2 pg Mean Corpuscular Hemoglobin Concent 31.8 g/dl Platelet Count 165 K/uL Mean Platelet Volume 11.4 fL Neutrophils (%) (Auto) 77.3 % Lymphocytes (%) (Auto) 12.0 % Monocytes (%) (Auto) 7.9 % Eosinophils (%) (Auto) 0.0 % Basophils (%) (Auto) 0.1 % Neutrophils # (Auto) 7.86 K/uL Lymphocytes # (Auto) 1.22 K/uL Monocytes # (Auto) 0.80 K/uL Eosinophils # (Auto) 0.00 K/uL Basophils # (Auto) 0.01 K/uL RDW Standard Deviation 57.3 fL RDW Coefficient of Variation 16.6 % Immature Granulocyte % (Auto) 2.7 % Immature Granulocyte # (Auto) 0.27 K/uL Nucleated RBC Absolute Count (auto) 0.04 K/uL Nucleated Red Blood Cells % 0.4 % Sodium Level 139 mmol/L Potassium Level 3.7 mmol/L Chloride Level 100 mmol/L Carbon Dioxide Level 29 mmol/L Anion Gap 10.0 mmol/L Blood Urea Nitrogen 13 mg/dl Creatinine 1.02 mg/dl Est Creatinine Clear Calc Drug Dose 43.9 ml/min Estimated GFR () 59.7 Estimated GFR (Non- 51.5 BUN/Creatinine Ratio 13.0 Random Glucose 98 mg/dl Estimated Average Glucose 157 mg/dl Hemoglobin A1c 7.1 % Calcium Level 8.4 mg/dl Magnesium Level 1.8 mg/dl Test 03/24/18 07:50 Bedside Glucose 112 mg/dl
[2018-03-24] MEDS ORDERED: VANCOMYCIN CONSULT ACTIVE PRN (11:00)
--- NOTE | 2018-03-24 11:10 | DIAGNOSTIC IMAGING REPORT ---
CT SCAN OF THE CHEST WITHOUT IV CONTRAST CLINICAL HISTORY: Recent tracheostomy. Increased secretions. COMPARISON STUDY: Chest x-ray dated 03/19/2018. Chest CT scans dated 03/15/2018 and 01/21/2016. TECHNIQUE: CT scan of the thorax was performed from the thoracic inlet to the upper abdomen. Images are reviewed in the axial, sagittal, and coronal planes. IV contrast was not administered for this examination. A dose lowering technique was utilized adhering to the principles of ALARA. The examination is degraded by motion artifact, as well as significant streak artifact from both arms which could not elevated above the chest and multifocal metallic hardware. CT DOSE: 943.36 mGy.cm FINDINGS: Thyroid: Markedly atrophic versus surgically absent. Thoracic aorta: There is atherosclerotic calcification of the thoracic aorta, which is normal in caliber and demonstrates standard 3-vessel arch anatomy. Heart: The heart is normal in size and without pericardial effusion. There are coronary artery calcifications. The pulmonary trunk is normal in caliber. A right PICC line is in place. Lungs and pleural spaces: A tracheostomy is in place. This is new from 03/15/2018. Evaluation of lung parenchyma is degraded by motion artifact. There are small pleural effusions with bibasilar consolidation. The trachea appears clear. Secretions fill the left mainstem bronchus. There are also secretions in the right lower lobe airways. No pneumothorax is seen. Mediastinum: There is rather pneumomediastinum. There is no mediastinal lymphadenopathy. Jenny: Not well assessed without IV contrast. Axillae: There is no axillary lymphadenopathy. Upper abdomen: Surgical clips are noted in the right retroperitoneal space. Partially visualized upper abdominal viscera is otherwise grossly normal as imaged. Skeletal structures: The skeletal structures are osteopenic. No lytic or blastic bony lesions are seen. There are bilateral shoulder arthroplasties. Fusion hardware is seen in the lower cervical spine and extensive fusion hardware is also identified at the thoracolumbar junction. Compression deformities are seen in the upper thoracic region. There are healed right-sided rib fractures. Soft tissues: There is extensive subcutaneous emphysema seen in the lower neck bilaterally and extending into the ventral chest and right upper extremity. IMPRESSION: 1. Streak and motion compromised examination. 2. A tracheostomy is new from previous. 3. Secretions are seen within the left mainstem bronchus and the right lower lobe airways. 4. There is extensive subcutaneous emphysema identified in the lower neck and the anterior chest wall. Additionally, there is pneumomediastinum. These findings are nonspecific and may be related to the recent tracheostomy placement. Clinical correlation will be required. 5. There are small pleural effusions with bibasilar consolidation. This is similar to 03/15/2018 and likely represents atelectasis. Clinical correlation will be required. 6. There is no pneumothorax. 7. Additional findings as above. Electronically signed by: Justo Mejias M.D. 03/24/2018 11:08 AM Dictated Date/Time: 03/24/2018 11:00 AM
[2018-03-24] MEDS: POTASSIUM CHLR 10 MEQ / WTR 100 ML IV SCH ×2 (11:23→12:23)
[2018-03-24] MEDS: NYSTATIN POWDER 15GM BTL EXT SCH ×3 (11:32→21:24)
[2018-03-24] MEDS: TIOTROPIUM BROMIDE 28 PUFF/4 GM INH INH SCH ×2 (11:33→21:30)
[2018-03-24] MEDS: CITALOPRAM 20 MG TAB PO SCH (11:35)
[2018-03-24] MEDS: CLONIDINE HCL 0.1 MG TAB PO SCH (11:35)
[2018-03-24] MEDS: AMIODARONE 200 MG TAB PO SCH ×3 (11:35→21:00)
[2018-03-24] MEDS: POTASSIUM CHLORIDE 10 MEQ TABCR PO SCH (11:36)
[2018-03-24] MEDS: GABAPENTIN 300 MG CAP PO SCH ×2 (11:36→21:00)
[2018-03-24] MEDS: FERROUS SULFATE 325 MG TAB PO SCH (11:36)
[2018-03-24] MEDS: CALCITRIOL 0.25 MCG CAP PO SCH (11:37)
[2018-03-24] MEDS: PANTOprazole SOD 40 MG TAB PO SCH (11:37)
[2018-03-24] MEDS: CHOLECALCIFEROL 1000 INTER.UNIT TAB PO SCH (11:38)
[2018-03-24] MEDS: CYANOCOBALAMIN 500 MCG TAB (VIT B-12) PO SCH (11:39)
[2018-03-24] MEDS ORDERED: VANCOMYCIN IV 2,000 MG in SODIUM CHLORIDE 0.9% 500ML 500 ML IV ONE (11:45)
[2018-03-24] MEDS: CEFEPIME IV 2,000 MG in SYRINGE 7.5 ML IV SCH (12:22)
--- NOTE | 2018-03-24 13:05 | DIAGNOSTIC IMAGING REPORT ---
SINGLE VIEW CHEST CLINICAL HISTORY: New tracheostomy. FINDINGS: An AP, portable, upright chest radiograph is compared to study dated 03/19/2018 and correlated with chest CT performed the same day 03/24/2018. The examination is degraded by portable technique and patient rotation. A tracheostomy is new from previous. A right PICC line is unchanged in position. The heart is top normal for projection. There is atherosclerotic calcification of the thoracic aorta. The pulmonary vasculature is noncongested. There are small pleural effusions with bibasilar consolidation. No pneumothorax is seen. The skeletal structures are osteopenic. Extensive fusion hardware is seen in the lower cervical spine and at the thoracolumbar junction. Bilateral shoulder arthroplasties are in place. Extensive subcutaneous emphysema is seen in the lower neck and chest wall. IMPRESSION: 1. A tracheostomy is new from 03/19/2018. 2. There is extensive subcutaneous emphysema in the lower neck and chest wall. 3. There are small pleural effusions with bibasilar consolidation. This likely represents atelectasis, and these findings were better characterized on today's chest CT. 4. Pneumomediastinum seen by CT is not well visualized by x-ray. Electronically signed by: Justo Mejias M.D. 03/24/2018 1:03 PM Dictated Date/Time: 03/24/2018 1:01 PM
[2018-03-24] MEDS ORDERED: CEFEPIME IV 2,000 MG in DEXTROSE 5% 100ML 100 ML IV SCH (14:00)
--- NOTE | 2018-03-24 15:14 | Pharmacy Progress Note ---
Pharmacy Antibiotic Consult Date of Service: Mar 24, 2018. Pharmacy Dosing Scope Pharmacy is consulted to initiate vancomycin IV dosing therapy, order appropriate labs and adjust drug dose/frequency. Subjective The patient is a 83 year old female admitted on Mar 15, 2018 at 18:50. Objective Height (Feet): 5 Height (Inches): 2 Weight (Kilograms): 85.400 Lab Results (24hrs): Test 03/24/18 05:47 03/24/18 07:50 03/24/18 11:36 White Blood Count 10.16 K/uL (4.8-10.8) Red Blood Count 3.91 M/uL (4.2-5.4) Hemoglobin 11.8 g/dL (12.0-16.0) Hematocrit 37.1 % (37-47) Mean Corpuscular Volume 94.9 fL (80-100) Mean Corpuscular Hemoglobin 30.2 pg (25-34) Mean Corpuscular Hemoglobin Concent 31.8 g/dl (32-36) Platelet Count 165 K/uL (130-400) Mean Platelet Volume 11.4 fL (7.4-10.4) Neutrophils (%) (Auto) 77.3 % Lymphocytes (%) (Auto) 12.0 % Monocytes (%) (Auto) 7.9 % Eosinophils (%) (Auto) 0.0 % Basophils (%) (Auto) 0.1 % Neutrophils # (Auto) 7.86 K/uL (1.4-6.5) Lymphocytes # (Auto) 1.22 K/uL (1.2-3.4) Monocytes # (Auto) 0.80 K/uL (0.11-0.59) Eosinophils # (Auto) 0.00 K/uL (0-0.5) Basophils # (Auto) 0.01 K/uL (0-0.2) RDW Standard Deviation 57.3 fL (36.4-46.3) RDW Coefficient of Variation 16.6 % (11.5-14.5) Immature Granulocyte % (Auto) 2.7 % Immature Granulocyte # (Auto) 0.27 K/uL (0.00-0.02) Nucleated RBC Absolute Count (auto) 0.04 K/uL (0-0) Nucleated Red Blood Cells % 0.4 % Sodium Level 139 mmol/L (136-145) Potassium Level 3.7 mmol/L (3.5-5.1) Chloride Level 100 mmol/L (98-107) Carbon Dioxide Level 29 mmol/L (21-32) Anion Gap 10.0 mmol/L (3-11) Blood Urea Nitrogen 13 mg/dl (7-18) Creatinine 1.02 mg/dl (0.60-1.20) Est Creatinine Clear Calc Drug Dose 43.9 ml/min Estimated GFR () 59.7 Estimated GFR (Non- 51.5 BUN/Creatinine Ratio 13.0 (10-20) Random Glucose 98 mg/dl (70-99) Estimated Average Glucose 157 mg/dl Hemoglobin A1c 7.1 % (4.5-5.6) Calcium Level 8.4 mg/dl (8.5-10.1) Magnesium Level 1.8 mg/dl (1.8-2.4) Bedside Glucose 112 mg/dl (70-90) 121 mg/dl (70-90) Assessment & Plan Loading dose: 2000 mg IV X 1 dose then: vanc 1250 mg IV every 24 hours starting tomorrow @ 1200. Goal trough level estimate: between 15 - 20 mcg/mL. Peak and trough or random level has been ordered for: @ 1130. Pharmacy will continue to follow and will adjust dose/frequency as necessary. Thank you
--- NOTE | 2018-03-24 16:59 | Hospitalist Progress Note ---
Hospitalist Progress Note Date of Service Mar 24, 2018. Subjective Pt evaluation today including: conversation w/ patient, conversation w/ family , conversation w/ application security consultant (Pulmonology) Patient did not sleep all night and they were unable to complete her overnight oximetry because of this. She had significantly increased purulent secretions from the trach this morning which was sent for culture. Discussed the case with pulmonology-recommended starting antibiotics, collecting the sputum culture , and getting a CT of the chest. There is one documented fever today, however the nurse reports it was rechecked about 2 hours later and without any intervention the fever was gone. Discussed the case with speech therapy who recommended the patient was okay to swallow liquids diet. Telemetry with normal sinus rhythm, sinus tach in the low 100s, PACs, PJCs All Other Systems: Reviewed and Negative Objective Vital Signs Date Time Temp Pulse Resp B/P (MAP) Pulse Ox O2 Delivery O2 Flow Rate FiO2 03/24/18 15:53 37.3 98 22 108/69 (82) 94 Trach Collar 35 03/24/18 15:01 93 20 94 Trach Collar 12.0 35 03/24/18 13:21 37.3 03/24/18 11:09 38.2 107 20 153/80 (104) 96 Trach Collar 35.0 03/24/18 08:00 Humidified Oxygen 35 Trach Collar 03/24/18 07:54 37.1 101 20 153/84 (107) 95 Trach Collar 35 03/24/18 07:37 84 22 86 Trach Collar 35 03/24/18 02:44 37.5 98 20 169/80 (109) 91 Trach Collar 03/23/18 22:56 37.5 93 20 168/85 (112) 92 Trach Collar 6.0 03/23/18 20:46 37.5 91 22 150/80 (103) 92 Trach Collar 03/23/18 20:00 Trach Collar 28 03/23/18 19:02 99 22 Room Air Physical Exam General Appearance: no apparent distress (Drowsy but wakes up and answers questions with shaking her head yes or no) Eyes: normal inspection, sclerae normal ENT: hearing grossly normal Neck: trachea midline (With tracheostomy in place with trach collar) Respiratory/Chest: no respiratory distress, no accessory muscle use, + rhonchi (In the upper airways) Cardiovascular: regular rate, rhythm, no murmur, + pertinent finding (1+ pitting edema legs bilaterally) Abdomen: normal bowel sounds, non tender, soft Extremities: no calf tenderness Neurologic/Psychiatric: + pertinent finding (Drowsy but does wake up and answer questions) Skin: normal color, warm/dry, no rash Laboratory Results Last 24 Hours Test 03/23/18 20:52 03/24/18 05:47 03/24/18 07:50 03/24/18 11:36 Bedside Glucose 212 mg/dl 112 mg/dl 121 mg/dl White Blood Count 10.16 K/uL Red Blood Count 3.91 M/uL Hemoglobin 11.8 g/dL Hematocrit 37.1 % Mean Corpuscular Volume 94.9 fL Mean Corpuscular Hemoglobin 30.2 pg Mean Corpuscular Hemoglobin Concent 31.8 g/dl Platelet Count 165 K/uL Mean Platelet Volume 11.4 fL Neutrophils (%) (Auto) 77.3 % Lymphocytes (%) (Auto) 12.0 % Monocytes (%) (Auto) 7.9 % Eosinophils (%) (Auto) 0.0 % Basophils (%) (Auto) 0.1 % Neutrophils # (Auto) 7.86 K/uL Lymphocytes # (Auto) 1.22 K/uL Monocytes # (Auto) 0.80 K/uL Eosinophils # (Auto) 0.00 K/uL Basophils # (Auto) 0.01 K/uL RDW Standard Deviation 57.3 fL RDW Coefficient of Variation 16.6 % Immature Granulocyte % (Auto) 2.7 % Immature Granulocyte # (Auto) 0.27 K/uL Nucleated RBC Absolute Count (auto) 0.04 K/uL Nucleated Red Blood Cells % 0.4 % Sodium Level 139 mmol/L Potassium Level 3.7 mmol/L Chloride Level 100 mmol/L Carbon Dioxide Level 29 mmol/L Anion Gap 10.0 mmol/L Blood Urea Nitrogen 13 mg/dl Creatinine 1.02 mg/dl Est Creatinine Clear Calc Drug Dose 43.9 ml/min Estimated GFR () 59.7 Estimated GFR (Non- 51.5 BUN/Creatinine Ratio 13.0 Random Glucose 98 mg/dl Estimated Average Glucose 157 mg/dl Hemoglobin A1c 7.1 % Calcium Level 8.4 mg/dl Magnesium Level 1.8 mg/dl Assessment and Plan This patient is an 83yo female with a complex medical history, here with acute metabolic and toxic encephalopathy, lactic acidosis, abdominal pain all likely secondary to stercoral colitis. Also with Rabia glabrata UTI and underwent planned tracheostomy for chronic aspiration and respiratory failure. 1. Acute metabolic and toxic encephalopathy - resolved. Suspect it was toxic from recent pain meds/benzos as well as metabolic from the lactic acidosis and severe constipation. CT head, ammonia, VBG, blood cultures, etc were all normal. 2. new-onset a. fib - converted to NSR and has remained in NSR with amiodarone. Continue oral amiodarone 200mg tid until 03/29 and then reduced to 200 mg once daily Holding lovenox bridge due to trach placement-restart when okay with surgery versus going back to Eliquis -Continue telemetry monitoring -Follow electrolytes and replace as needed 3. abdominal pain with lactic acidosis - 03/15/[address] without pathology. Lactate now normal CT 03/20/18 normal except for moderate constipation. There has been NO signs of an ischemic bowel process. Gall bladder w/u was negative. She passed a rock-solid stool this admission and despite such still had copious stool on MONTY. Possibly this was secondary to low-grade stercolitis? This certainly could have caused abd pain, lactic acidosis, and confusion. Appreciate gen surg consult. Nothing surgical at this time. -continue aggressive bowel regimen-make MiraLAX scheduled daily and add senna 17.2 mg nightly. -LFTs, lipase, sed rate, and crp have been reassuring.. 4. chronic hypoxic respiratory failure - stable -currently on trach collar. 5. right-sided chest/abd pain at admission - etiology uncertain; ACS was ruled out; PE was ruled out. See #3 above. I believe the abdominal pain was likely due to severe constipation. 6. Rabia glabrata UTI-initial UA and urine culture were negative, repeat on was worse and patient had symptoms of dysuria at that time. Urine culture growing Rabia glabrata -Started IV caspofungin-today's day #2 -Awaiting infectious disease consultation-could potentially switch to high-dose Diflucan as per pharmacy? 7. Chronic aspiration-now status post tracheostomy as per pulmonology recommendations to decrease space. Dr. Velazquez took her to the OR on 03/23 for tracheostomy Eliquis and lovenox bridge both on hold. -Further trach care as per pulmonary and ENT -Overnight oximetry test tonight on trach collar to determine if will need vent at nighttime-we will attempt again 7. COPD - steroid dependent; recently weaned to prednisone 30 mg-give 1 dose IV SoluMedrol again today as she was not able to take her morning prednisone dose -Now taking p.o. so will revert back to prednisone 30 mg daily tomorrow 8. H/O DVTs - noted; remains on anticoagulation which is on hold for surgery. 9. CKD stage 3 - creatinine stable. 10. Hypothyroidism - compensated; cont synthroid-received IV dose this morning but revert back to p.o. as she is now tolerating p.o. 11. T2DM - controlled. Hemoglobin A1c 7.1% -Continue insulin sliding scale, Accu-Cheks -Basal insulin on hold from home 12. chronic diastolic CHF - compensated 13. right-sided elevated Hemidiaphragm - S/P Plication in the past. 14. elevated lactate level - due to #3 above? resolved. 15. HTN - controlled with current meds. -Continue clonidine 16. History of orthostatic hypotension-takes midodrine as needed 17. RLS-takes Mirapex and gabapentin 18. Suspected pneumonia-with isolated fever today. Increased secretions coming from trach, CT scan of the chest repeated on 03/24 with secretions and likely atelectasis with mild pleural effusions -Discussed with pulmonology-check sputum from the trach -Start cefepime and vancomycin -Check blood cultures if spikes fever again Disposition-remain on telemetry
[2018-03-24] MEDS: CASPOFUNGIN INJ 50 MG in SODIUM CHLORIDE 0.9% 250ML 250 ML IV SCH (17:14)
[2018-03-24] MEDS: SIMVASTATIN 20 MG TAB PO SCH (21:00)
[2018-03-24] MEDS: CALCIUM CARBONATE 1250MG TAB PO SCH (21:00)
[2018-03-24] MEDS: SENNA 8.6 MG TAB PO SCH (21:00)
[2018-03-24] MEDS: ROPINIROLE HCL 0.25 MG TAB PO SCH (21:00)
[2018-03-25] VITALS (14 sets, daily range): BP systolic 129–171; BP diastolic 68–104; PULSE 83–100; TEMP 36.7–37.7; O2SAT 90–97
[2018-03-25] MEDS: CEFEPIME IV 2,000 MG in SYRINGE 7.5 ML IV SCH ×2 (00:08→12:09)
[2018-03-25] MEDS: LEVOTHYROXINE 100 MCG TAB PO SCH (05:38)
[2018-03-25 06:22] LABS: BASO % 0.2 %; BASO ABS # 0.01 K/uL (0-0.2); HEMATOCRIT 30.4 % (37-47); HEMOGLOBIN 9.8 g/dL (12.0-16.0); LYMPH % 12.4 %; LYMPH ABS # 0.71 K/uL (1.2-3.4); MEAN CELL VOLUME 95.9 fL (80-100); MEAN CORPUSCULAR HEMOGLOBIN 30.9 pg (25-34); MEAN CORPUSCULAR HGB CONC 32.2 g/dl (32-36); MEAN PLATELET VOLUME 10.6 fL (7.4-10.4); MONO % 11.7 %; MONO ABS # 0.67 K/uL (0.11-0.59); NEUT ABS # 4.23 K/uL (1.4-6.5); NUCLEATED RED BLOOD CELL ABS 0.03 K/uL (0-0); PLATELET COUNT 134 K/uL (130-400); RED CELL DISTRIBUTION WIDTH SD 59.7 fL (36.4-46.3); WHITE BLOOD COUNT 5.72 K/uL (4.8-10.8)
[2018-03-25 06:49] LABS: ALBUMIN 2.6 gm/dl (3.4-5.0); CALCIUM 7.7 mg/dl (8.5-10.1); CREATININE 0.9 mg/dl (0.60-1.20); POTASSIUM 3.5 mmol/L (3.5-5.1); TOTAL PROTEIN 5.5 gm/dl (6.4-8.2)
[2018-03-25] MEDS: INSULIN ASPART 100 UNITS/ML 3 ML PEN SC SCH ×3 (07:00→17:11)
--- NOTE | 2018-03-25 07:17 | Progress Note ---
Progress Note Date of Service Mar 25, 2018. Progress Note ID Consult Dictated #[id number] A/P: 1. UTI -Continue caspofungin x 2 more days -Thank you
[2018-03-25] MEDS: ALBUT/IPRATROP 3MG/0.5MG NEB 3 ML VIAL NEB SCH ×3 (07:18→21:00)
[2018-03-25] MEDS: SUCRALFATE 1 GM/10 ML UDC PO SCH ×4 (08:54→19:52)
[2018-03-25] MEDS: CLONIDINE HCL 0.1 MG TAB PO SCH (08:54)
[2018-03-25] MEDS: CITALOPRAM 20 MG TAB PO SCH (08:54)
[2018-03-25] MEDS: GABAPENTIN 300 MG CAP PO SCH ×2 (08:55→19:53)
[2018-03-25] MEDS: FERROUS SULFATE 325 MG TAB PO SCH (08:55)
[2018-03-25] MEDS: POLYETHYLENE (MIRALAX) 17 GM PACK PO SCH (08:55)
[2018-03-25] MEDS: POTASSIUM CHLORIDE 10 MEQ TABCR PO SCH (08:55)
[2018-03-25] MEDS: AMIODARONE 200 MG TAB PO SCH ×3 (08:55→19:53)
[2018-03-25] MEDS: CYANOCOBALAMIN 500 MCG TAB (VIT B-12) PO SCH (08:56)
[2018-03-25] MEDS: PANTOprazole SOD 40 MG TAB PO SCH (08:56)
[2018-03-25] MEDS: CHOLECALCIFEROL 1000 INTER.UNIT TAB PO SCH (08:56)
[2018-03-25] MEDS: CALCITRIOL 0.25 MCG CAP PO SCH (08:56)
[2018-03-25] MEDS ORDERED: NURSING VERBAL MED ORDER ONE ×3 (09:00→19:00)
[2018-03-25] MEDS ORDERED: LEVOTHYROXINE SODIUM INJ 50 MCG in SYRINGE 0 ML IV SCH (09:00)
[2018-03-25] MEDS ORDERED: METHYLPREDNISOLONE IV 40 MG in SYRINGE 0 ML IV SCH (09:00)
[2018-03-25] MEDS ORDERED: LEVOTHYROXINE SODIUM INJ 50 MCG in SYRINGE 0 ML IV ONE (09:15)
[2018-03-25] MEDS ORDERED: METHYLPREDNISOLONE 40 MG in SYRINGE 0 ML IV ONE (09:15)
[2018-03-25] MEDS: NYSTATIN POWDER 15GM BTL EXT SCH ×3 (09:18→20:05)
[2018-03-25] MEDS: TIOTROPIUM BROMIDE 28 PUFF/4 GM INH INH SCH ×2 (09:19→20:04)
--- NOTE | 2018-03-25 10:28 | INFECT. DISEASE CONSULTATION ---
DATE OF CONSULTATION: 03/25/2018 HISTORY OF PRESENT ILLNESS: This is an 83-year-old female who was admitted to the hospital secondary to chest pain. She does have a history of COPD. She does have a trach collar with oxygen. She is being followed by cardiology as well as pulmonology during this visit. She has not had leukocytosis or fever since admission to the hospital. As part of her workup, she did have a urine culture obtained on the 18 of February which grew Rabia glabrata. Her UA at that time had only 5-10 WBCs, no bacteria and no yeast were seen. Infectious diseases was consulted for further management. She was started on caspofungin on the . She is also on vancomycin and cefepime and oral prednisone. She has had worsening secretions over the past several days. She did undergo a CAT scan of the chest yesterday which showed secretions in her airway, pneumomediastinum, subcutaneous emphysema in the lower neck and anterior chest wall related to recent trach placement. On my examination, the patient is unable to provide any history. She is resting comfortably. She has no trach secretions on my examination. PAST MEDICAL HISTORY: Significant for COPD with recent trach, history of DVTs, hypothyroidism, type 2 diabetes, chronic kidney disease, CHF, GERD, appendectomy. FAMILY HISTORY: Noncontributory. SOCIAL HISTORY: Negative for tobacco use, alcohol use or drug use. ALLERGIES: SHE IS ALLERGIC TO ADHESIVE TAPE, METRONIDAZOLE, PHENAZOPYRIDINE, ERYTHROMYCIN, SALICYLATE, SULFA ANTIBIOTICS, TETRACYCLINE, MORPHINE, DILTIAZEM, REGLAN, AND BACITRACIN. CURRENT MEDICATIONS: Amiodarone, vancomycin, MiraLax, Senokot, caspofungin, cefepime, Dilaudid, prednisone, Spiriva, subQ heparin, clonidine, calcitriol, vitamin D, Celexa, vitamin B, Protonix, iron, potassium, Synthroid, DuoNebs, Neurontin, nystatin powder, Requip, Zocor, Carafate, calcium, acetaminophen, Maalox, milk of magnesia, Zofran, albuterol, and Ultram. PHYSICAL EXAMINATION: VITAL SIGNS: She is afebrile, pulse 84, respiratory rate 19, blood pressure 129/74, oxygen saturation is 96% on trach collar. GENERAL: She is awake and nonverbal on my examination. HEART: Regular. LUNGS: Decreased bilaterally. ABDOMEN: Soft and nondistended. EXTREMITIES: There is no edema. SKIN: Without rash. LABORATORY STUDIES: Chemistry panel today, sodium 141, potassium 3.5, chloride 104, bicarbonate 29, BUN 18, creatinine 0.9, glucose 115. LFTs are within normal limits. CBC: White blood cell count 5.7, hemoglobin 9.8, platelets 134. Blood cultures on the are negative and final. Sputum culture from yesterday is pending. Urine culture from the is growing Rabia glabrata. ASSESSMENT AND PLAN: Fungal urinary tract infection. She can continue caspofungin for an additional 2 days. It is unclear if this is a true UTI or colonization; however, she is tolerating caspofungin well and can complete a course of this for positive urine culture. Thank you for this consultation.
--- NOTE | 2018-03-25 11:22 | Pulmonology Progress Note ---
Pulmonary Progress Note Date of Service Mar 25, 2018. Attending Dr. Khalil Subjective Patient notes continuous tracheal aspirate, with intermittent cough and some mild shortness of breath Objective Patient was stable saturations and notable tracheal aspirate on tracheal suctioning: Was asleep when I walked in the room showing no signs of respiratory insufficiency PmHx: Pulmonary embolism, sleep apnea/OHV, COPD, oxygen dependent 2-5L, diaphragmatic insufficiency/status post fundoplication, steroid-induced myopathy , orthostatic hypotension, hypertension, sclerotic aortic valve, chronic lymphedema, paroxysmal atrial fibrillation, chronic shortness of breath, C diff positive, recurrent UTIs Vital Signs/Physical Exam: SaO2: 90-97% on Venti-mask 21-35% Tmax: 37.2 Neck: Fresh tracheostomy minimal bleeding no signs of breakdown, mild sub-q fremitus Tracheostomy: Mucus secretions noted on tracheostomy suctioning Respiratory: Rhonchi appreciated right lower lobe Cardiac: S1-S2 Abdomen: Positive bowel sounds soft non-tender to deep palpation Labs: Procalcitonin: 0.5 CRP: 0.52 elevated Lactic acid: 1.0 WBC: 6K CT of the abdomen 03/21/2018: Shows continuation bilateral right greater than left atelectasis, no acute changes Urine: Rabia Glabrata Tracheal Aspirate: Staphylococcus Aureus Current Pulmonary Medications/antibiotics/antifungals: 1. Methylprednisolone 40 mg IV daily 2. Caspofungin 50 mg Q 24 (Day#: 3) 3. Spiriva 2 puffs b.i.d. 4. Pantoprazole 40 mg q.day 5. Duo nebs q.6 hours 6. Vancomycin (Day#: 2) 7. Cefepime (Day#: 2) Microbiology URINE: (07/24/15) Escherichia coli (09/01/15) Enterococcus faecalis (12/08/15) Lactobacillus species (11/25/16) Citrobacter species (07/07/17) Escherichia coli (07/24/17) Escherichia coli (03/20/18) Rabia Glabrata Respiratory Bronchial washing (06/29/2010) MRSA Bronchial washing left upper lobe (01/25/16) Fungal Species Right lower lobe bronchial washing (06/30/16) Fungal Species Bronchial washing right middle lobe (11/28/16) MRSA Bronchial washing right middle (01/15/17) Fungal Species Bronchial washing right and left lower lobe (10/09/2017) Bordetella Bronchiseptica Tracheal Aspirate (03/24/18): Staphylococcus Aureus Blood (04/24/16) Propionibacterium acnes Skin (04/17/17) right lower extremity: Pseudomonas aeruginosa, Enterococcus faecalis Stool C. difficile testing for 06/07/2018: Positive Assessment & Plan 83-year-old female with chronic respiratory insufficiency and steroid dependence admitted with atypical chest pain with an episode of atrial fibrillation with RVR: 1. Chronic Respiratory Insufficiency: Patient is status post tracheostomy day number 3. Patient had a sleep/nocturnal desaturation study that noted one event of desaturation <88% for 60 minutes. On this time will switch the patient to a ventilator device placing her on pressure support at 10/5 and repeat her nocturnal desaturation study. I have spoken to the respiratory team about this. 2. Aspiration: Per the RT ease the patient aspirated as they were cleaning her trachea the noted applesauce. He must note that the patient should not try to swallow with an intact/inflated tracheal balloon. This will increase the difficulty of her swallowing which on previous swallow evaluation she is noted to have aspiration events back in 2016. 3. PE/VTE: Will defer to Dr. Velazquez when he is comfortable for re-initiating anticoagulation. Patient treated with Eliquis secondary to poor compliance with Coumadin as well as difficulty with controlling her INR/therapeutic levels. Due to her morbid obesity the NOAQs are not recommend at this time but secondary to the patient's poor compliance the team is decided to use Eliquis for overall best control. 4. Tracheal Secretions: Diffuse tracheal secretions patient currently doing well once again most likely from underlying chronic bronchiectasis as well as possible aspiration. Continue to monitor the patient repeat CXR in the morning and possible bronchoscopic intervention if necessary. 5. PNA: Tracheal aspirate did grew out Staphylococcus aAreus. Patient has a history of MRSA pneumonia. It is possible this is just a colonizing agent but will continue her current antibiotic regimen for least a 5 day window in order procalcitonin the a.m.. Data Medications: Current Inpatient Medications Medications (Trade) Dose Ordered Sig/Natasha Route Start Time Stop Time Status Last Admin Dose Admin Acetaminophen (Tylenol Tab) 650 mg Q4H PRN PO 03/15/18 18:30 04/14/18 18:29 03/19/18 20:01 650 MG Al Hydrox/Mg Hydrox/Simethicone (Maalox Max Susp) 15 ml Q4H PRN PO 03/15/18 18:30 04/14/18 18:29 Magnesium Hydroxide (Milk Of Magnesia Susp) 30 ml Q12H PRN PO 03/15/18 18:30 04/14/18 18:29 Ondansetron HCl (Zofran Inj) 4 mg Q6H PRN IV 03/15/18 18:30 04/14/18 18:29 Albuterol Sulfate (Ventolin 0.083% 2.5MG/3ML Neb) 2.5 mg Q4H PRN INH 03/15/18 18:30 04/14/18 18:29 Albuterol/ Ipratropium (Duoneb) 3 ml Q6R NEB 03/15/18 21:00 04/14/18 20:59 03/25/18 07:18 3 ML Butalbital/ Aspirin/Caffeine (Fiorinal Tab/ CAP) 1 tab Q4 PRN PO 03/15/18 20:00 04/14/18 19:59 03/17/18 08:17 1 TAB Calcitriol (Rocaltrol Cap) 0.25 mcg DAILY PO 03/16/18 09:00 04/15/18 08:59 03/24/18 11:37 0.25 MCG Cholecalciferol (Vitamin D Tab) 1,000 inter.unit DAILY PO 03/16/18 09:00 04/15/18 08:59 03/24/18 11:38 1,000 INTER.UNIT Citalopram Hydrobromide (celeXA TAB) 30 mg DAILY PO 03/16/18 09:00 04/15/18 08:59 03/24/18 11:35 30 MG Diclofenac Sodium (Voltaren 1% Top Gel) 1 appln QID PRN EXT 03/15/18 19:30 04/14/18 19:29 03/18/18 08:30 1 APPLN Gabapentin (Neurontin Cap) 300 mg BID PO 03/15/18 21:00 04/14/18 20:59 03/24/18 11:36 300 MG Levothyroxine Sodium (Synthroid Tab) 100 mcg DAILYBB PO 03/16/18 06:00 04/15/18 06:59 Future hold 03/23/18 05:55 100 MCG Lorazepam (Ativan Tab) 0.25 mg for mild anxiety/ sl... Q6 PRN PO 03/15/18 18:30 04/14/18 18:29 Future Hold 03/18/18 21:12 0.25 MG Nystatin (Mycostatin Powder) 1 appln TID EXT 03/15/18 21:00 04/14/18 20:59 03/25/18 09:18 1 APPLN Ropinirole HCl (Requip Tab) 0.5 mg HS PO 03/15/18 21:00 04/14/18 20:59 03/22/18 21:06 0.5 MG Simvastatin (Zocor Tab) 20 mg HS PO 03/15/18 21:00 04/14/18 20:59 03/22/18 21:06 20 MG Sucralfate (Carafate Susp) 1 gm QID PO 03/15/18 21:00 04/14/18 20:59 03/24/18 12:22 1 GM Tramadol HCl (Ultram Tab) 50 mg Q6H PRN PO 03/15/18 18:30 04/14/18 18:29 03/22/18 11:41 50 MG Apixaban (Eliquis Tab) 5 mg BID PO 03/15/18 21:00 04/14/18 20:59 Future Hold 03/19/18 08:54 5 MG Calcium Carbonate (oS-Misael 500 TAB) 2,500 mg HS PO 03/15/18 21:00 04/14/18 20:59 03/22/18 21:07 2,500 MG Cyanocobalamin (Vitamin B-12 Tab) 1,000 mcg QAM PO 03/16/18 09:00 04/15/18 08:59 03/24/18 11:39 1,000 MCG Pantoprazole Sodium (Protonix Tab) 40 mg QAM PO 03/16/18 09:00 04/15/18 08:59 03/24/18 11:37 40 MG Ferrous Sulfate (Feosol Tab) 325 mg DAILY PO 03/16/18 09:00 04/15/18 08:59 03/24/18 11:36 325 MG Miscellaneous Information (Order Awaiting Action) 1 ea QS N/A 03/16/18 00:00 04/15/18 00:00 03/18/18 18:49 1 EA Potassium Chloride (Klor-Con M10) 20 meq DAILY PO 03/16/18 09:00 04/15/18 08:59 03/24/18 11:36 20 MEQ Glucose (Glucose 40% Gel) 15-30 GRAMS 15 GRAMS... UD PRN PO 03/15/18 19:00 04/14/18 18:59 Glucose (Glucose Chew Tab) 4-8 Tablets 4 Tabl... UD PRN PO 03/15/18 19:00 04/14/18 18:59 Dextrose (Dextrose 50% 50ML Syringe) 25-50ML 25ML FOR ... UD PRN IV 03/15/18 19:00 04/14/18 18:59 Glucagon (Glucagon Inj) 1 mg UD PRN SQ 03/15/18 19:00 04/14/18 18:59 Carbohydrates (Carbohydrates For Hypoglycemia) 15-30 GRAMS 15 grams if BSG 54-69... UD PRN PO 03/15/18 19:00 04/14/18 18:59 Clonidine HCl (Catapres Tab) 0.1 mg QAM PO 03/18/18 09:00 04/17/18 08:59 03/24/18 11:35 0.1 MG Heparin Sodium (Porcine) (Heparin 10 Unit/ ml 5 ml Flush) 5 ml PRN PRN FLUSH 03/20/18 00:30 04/19/18 00:29 Enoxaparin Sodium (Lovenox Inj) 80 mg Q12 SQ 03/20/18 16:00 04/19/18 20:59 Future Hold 03/22/18 08:22 80 MG Amiodarone HCl (Cordarone Tab) 200 mg TID PO 03/20/18 21:00 03/28/18 23:59 03/24/18 15:04 200 MG Amiodarone HCl (Cordarone Tab) 200 mg DAILY PO 03/29/18 09:00 04/28/18 08:59 Insulin Aspart (novoLOG ASPART) SLIDING SCALE If C... ACHS SC 03/21/18 16:15 04/20/18 16:14 03/24/18 21:26 2 UNITS Tiotropium Nelson (Spiriva Respimat) 2 puff BID INH 03/21/18 21:00 04/20/18 20:59 03/25/18 09:19 2 PUFF Non-Formulary Medication (Non-Formulary Patient'S Own Med) 1 ea DAILY PO 03/22/18 09:00 04/21/18 08:59 03/24/18 11:37 1 EA Prednisone (PredniSONE TAB) 30 mg DAILY PO 03/22/18 09:00 04/17/18 08:59 Future hold 03/22/18 10:45 30 MG Hydromorphone HCl (Dilaudid Inj) 0.25 mg Q1H PRN IV 03/23/18 11:30 04/06/18 11:29 03/24/18 20:02 0.25 MG Caspofungin 50 mg/ Sodium Chloride 260 ml @ 250 mls/hr Q24H IV 03/24/18 18:00 03/29/18 18:14 03/24/18 17:14 250 MLS/HR Vancomycin HCl 1250 mg/Sodium Chloride 275 ml @ 125 mls/hr Q24H IV 03/25/18 12:00 04/01/18 11:59 Vancomycin HCl (Consult) 1 ea UD PRN N/A 03/24/18 11:00 04/23/18 10:59 Cefepime HCl 2000 mg/Syringe 20 ml @ 5 mls/min Q12H IV 03/24/18 12:00 03/31/18 11:59 03/25/18 00:08 5 MLS/MIN Polyethylene (Miralax Powder Packet) 17 gm DAILY PO 03/25/18 09:00 04/14/18 18:29 Senna (Senokot Tab) 17.2 mg HS PO 03/24/18 21:00 04/23/18 20:59 Vital Signs: Date Time Temp Pulse Resp B/P (MAP) Pulse Ox O2 Delivery O2 Flow Rate FiO2 03/25/18 08:33 144/68 (93) 03/25/18 08:00 Humidified Oxygen 35 Trach Collar 03/25/18 07:36 37.2 86 22 168/104 (125) 97 Trach Collar 03/25/18 07:18 97 22 93 Trach Collar 12.0 35 03/25/18 06:21 90 Room Air 21 03/25/18 03:30 36.9 84 19 129/74 (92) 96 Trach Collar 03/24/18 23:37 36.7 86 20 106/67 (80) 96 Trach Collar 03/24/18 22:00 94 Humidified Oxygen 12.0 35 Trach Collar 03/24/18 19:30 93 22 94 Trach Collar 12.0 35 03/24/18 19:01 37.2 83 18 136/73 (94) 95 Trach Collar 35 03/24/18 15:53 37.3 98 22 108/69 (82) 94 Trach Collar 35 03/24/18 15:01 93 20 94 Trach Collar 12.0 35 03/24/18 13:21 37.3 Laboratory Results: Last 24 Hours Test 03/24/18 11:36 03/24/18 16:45 03/24/18 20:31 03/25/18 06:01 Bedside Glucose 121 mg/dl 244 mg/dl 229 mg/dl White Blood Count 5.72 K/uL Red Blood Count 3.17 M/uL Hemoglobin 9.8 g/dL Hematocrit 30.4 % Mean Corpuscular Volume 95.9 fL Mean Corpuscular Hemoglobin 30.9 pg Mean Corpuscular Hemoglobin Concent 32.2 g/dl Platelet Count 134 K/uL Mean Platelet Volume 10.6 fL Neutrophils (%) (Auto) 74.0 % Lymphocytes (%) (Auto) 12.4 % Monocytes (%) (Auto) 11.7 % Eosinophils (%) (Auto) 0.0 % Basophils (%) (Auto) 0.2 % Neutrophils # (Auto) 4.23 K/uL Lymphocytes # (Auto) 0.71 K/uL Monocytes # (Auto) 0.67 K/uL Eosinophils # (Auto) 0.00 K/uL Basophils # (Auto) 0.01 K/uL RDW Standard Deviation 59.7 fL RDW Coefficient of Variation 17.0 % Immature Granulocyte % (Auto) 1.7 % Immature Granulocyte # (Auto) 0.10 K/uL Nucleated RBC Absolute Count (auto) 0.03 K/uL Nucleated Red Blood Cells % 0.5 % Sodium Level 141 mmol/L Potassium Level 3.5 mmol/L Chloride Level 104 mmol/L Carbon Dioxide Level 29 mmol/L Anion Gap 8.0 mmol/L Blood Urea Nitrogen 18 mg/dl Creatinine 0.90 mg/dl Est Creatinine Clear Calc Drug Dose 50.5 ml/min Estimated GFR () 69.5 Estimated GFR (Non- 60.0 BUN/Creatinine Ratio 19.5 Random Glucose 115 mg/dl Calcium Level 7.7 mg/dl Magnesium Level 1.9 mg/dl Total Bilirubin 0.9 mg/dl Direct Bilirubin 0.2 mg/dl Aspartate Amino Transf (AST/SGOT) 16 U/L Alanine Aminotransferase (ALT/SGPT) 37 U/L Alkaline Phosphatase 50 U/L Total Protein 5.5 gm/dl Albumin 2.6 gm/dl Test 03/25/18 07:15 Bedside Glucose 136 mg/dl
[2018-03-25] MEDS: VANCOMYCIN IV 1,250 MG in SODIUM CHLORIDE 0.9% 250ML 250 ML IV SCH (12:09)
[2018-03-25] MEDS: ACETAMINOPHEN IV 1000MG/100ML IV PRN (16:00)
--- NOTE | 2018-03-25 16:37 | Hospitalist Progress Note ---
Hospitalist Progress Note Date of Service Mar 25, 2018. Subjective Pt evaluation today including: conversation w/ patient, conversation w/ family , conversation w/ railroad design consultant (Pulmonology) Patient had applesauce sucked out from her trach this morning that was used for morning pills. She is now n.p.o. again. Has been drowsy all day but does wake up and answer questions with yes or no head shakes. Temperature is mildly elevated but not febrile yet. Suctioning some thick bloody secretions as per respiratory therapy notes. Remains in normal sinus rhythm on telemetry Daughter is agreeable to LTAC placement if insurance will cover All Other Systems: Reviewed and Negative Objective Vital Signs Date Time Temp Pulse Resp B/P (MAP) Pulse Ox O2 Delivery O2 Flow Rate FiO2 03/25/18 15:19 37.7 100 18 171/80 (110) 90 Trach Collar 03/25/18 15:10 98 20 165/90 (115) 90 Trach Collar 03/25/18 14:27 92 22 91 Trach Collar 12.0 35 03/25/18 12:19 36.9 91 20 166/83 (110) 95 Trach Collar 03/25/18 08:33 144/68 (93) 03/25/18 08:00 Humidified Oxygen 35 Trach Collar 03/25/18 07:36 37.2 86 22 168/104 (125) 97 Trach Collar 03/25/18 07:18 97 22 93 Trach Collar 12.0 35 03/25/18 06:21 90 Room Air 21 03/25/18 03:30 36.9 84 19 129/74 (92) 96 Trach Collar 03/24/18 23:37 36.7 86 20 106/67 (80) 96 Trach Collar 03/24/18 22:00 94 Humidified Oxygen 12.0 35 Trach Collar 03/24/18 19:30 93 22 94 Trach Collar 12.0 35 03/24/18 19:01 37.2 83 18 136/73 (94) 95 Trach Collar 35 Physical Exam General Appearance: WD/WN, no apparent distress (Drowsy but wakes up and answers questions) Eyes: normal inspection, sclerae normal ENT: hearing grossly normal Neck: trachea midline (With tracheostomy in place with trach collar) Respiratory/Chest: no respiratory distress, no accessory muscle use, + rhonchi Cardiovascular: regular rate, rhythm, no edema, no murmur Abdomen: normal bowel sounds, non tender, soft Extremities: normal inspection, no pedal edema, no calf tenderness Neurologic/Psychiatric: + pertinent finding (Drowsy as above) Skin: normal color, warm/dry, no rash Laboratory Results Last 24 Hours Test 03/24/18 16:45 03/24/18 20:31 03/25/18 06:01 03/25/18 07:15 Bedside Glucose 244 mg/dl 229 mg/dl 136 mg/dl White Blood Count 5.72 K/uL Red Blood Count 3.17 M/uL Hemoglobin 9.8 g/dL Hematocrit 30.4 % Mean Corpuscular Volume 95.9 fL Mean Corpuscular Hemoglobin 30.9 pg Mean Corpuscular Hemoglobin Concent 32.2 g/dl Platelet Count 134 K/uL Mean Platelet Volume 10.6 fL Neutrophils (%) (Auto) 74.0 % Lymphocytes (%) (Auto) 12.4 % Monocytes (%) (Auto) 11.7 % Eosinophils (%) (Auto) 0.0 % Basophils (%) (Auto) 0.2 % Neutrophils # (Auto) 4.23 K/uL Lymphocytes # (Auto) 0.71 K/uL Monocytes # (Auto) 0.67 K/uL Eosinophils # (Auto) 0.00 K/uL Basophils # (Auto) 0.01 K/uL RDW Standard Deviation 59.7 fL RDW Coefficient of Variation 17.0 % Immature Granulocyte % (Auto) 1.7 % Immature Granulocyte # (Auto) 0.10 K/uL Nucleated RBC Absolute Count (auto) 0.03 K/uL Nucleated Red Blood Cells % 0.5 % Sodium Level 141 mmol/L Potassium Level 3.5 mmol/L Chloride Level 104 mmol/L Carbon Dioxide Level 29 mmol/L Anion Gap 8.0 mmol/L Blood Urea Nitrogen 18 mg/dl Creatinine 0.90 mg/dl Est Creatinine Clear Calc Drug Dose 50.5 ml/min Estimated GFR () 69.5 Estimated GFR (Non- 60.0 BUN/Creatinine Ratio 19.5 Random Glucose 115 mg/dl Calcium Level 7.7 mg/dl Magnesium Level 1.9 mg/dl Total Bilirubin 0.9 mg/dl Direct Bilirubin 0.2 mg/dl Aspartate Amino Transf (AST/SGOT) 16 U/L Alanine Aminotransferase (ALT/SGPT) 37 U/L Alkaline Phosphatase 50 U/L Total Protein 5.5 gm/dl Albumin 2.6 gm/dl Test 03/25/18 11:42 Bedside Glucose 136 mg/dl Assessment and Plan This patient is an 83yo female with a complex medical history, here with acute metabolic and toxic encephalopathy, lactic acidosis, abdominal pain all likely secondary to stercoral colitis. Also with Rabia glabrata UTI and underwent planned tracheostomy for chronic aspiration and respiratory failure. 1. Acute metabolic and toxic encephalopathy -was resolved, however now returned possibly secondary to staph pneumonia Suspect that previously, it was toxic from recent pain meds/benzos as well as metabolic from the lactic acidosis and severe constipation. CT head, ammonia, VBG, blood cultures, etc were all normal early on. -Now treating for pneumonia as below 2. new-onset a. fib - converted to NSR and has remained in NSR with amiodarone. Continue oral amiodarone 200mg tid until 03/29 and then reduced to 200 mg once daily-although currently n.p.o. for recurrent aspiration Holding lovenox bridge due to trach placement-restart when okay with surgery versus going back to Eliquis -Continue telemetry monitoring -Follow electrolytes and replace as needed 3. abdominal pain with lactic acidosis - 03/15/[address] without pathology. Lactate now normal CT 03/20/18 normal except for moderate constipation. There has been NO signs of an ischemic bowel process. Gall bladder w/u was negative. She passed a rock-solid stool this admission and despite such still had copious stool on MONTY. Possibly this was secondary to low-grade stercolitis? This certainly could have caused abd pain, lactic acidosis, and confusion. Appreciate gen surg consult. Nothing surgical at this time. -continue aggressive bowel regimen-make MiraLAX scheduled daily and add senna 17.2 mg nightly when taking p.o. again. -LFTs, lipase, sed rate, and crp have been reassuring.. 4. chronic hypoxic respiratory failure - stable -currently on trach collar. 5. right-sided chest/abd pain at admission - etiology uncertain; ACS was ruled out; PE was ruled out. See #3 above. I believe the abdominal pain was likely due to severe constipation. 6. Rabia glabrata UTI-initial UA and urine culture were negative, repeat on was worse and patient had symptoms of dysuria at that time. Urine culture growing Rabia glabrata -Started IV caspofungin-today's day #/5 -Appreciate infectious disease consultation 7. 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 Dr. Velazquez took her to the OR on 03/23 for tracheostomy Eliquis and lovenox bridge both on hold. -Further trach care as per pulmonary and ENT -Pulmonology to order vent settings for tonight -Possibly will transfer to LTAC in the next 1-2 days if accepted and approved for fresh tracheostomy care 7. COPD -pulmonology said that she never had COPD before, likely just hypoventilation due to plication and steroid-induced myopathy as above-she is now steroid dependent/steroid-induced myopathy; recently weaned to prednisone 30 mg-give 1 dose IV SoluMedrol again today as she was not able to take her morning prednisone dose -Once she is taking p.o. so will revert back to prednisone 30 mg daily 8. H/O DVTs - noted; remains on anticoagulation which is on hold for surgery. 9. CKD stage 3 - creatinine stable. 10. Hypothyroidism - compensated; cont synthroid-received IV dose again this morning but revert back to p.o. when able to take p.o. again 11. T2DM - controlled. Hemoglobin A1c 7.1% -Continue insulin sliding scale, Accu-Cheks -Basal insulin on hold from home 12. chronic diastolic CHF - compensated 13. right-sided elevated Hemidiaphragm - S/P Plication in the past. 14. elevated lactate level - due to #3 above? resolved. 15. HTN - controlled with current meds. -Continue clonidine when taking p.o., otherwise as needed IV meds 16. History of orthostatic hypotension-takes midodrine as needed 17. RLS-takes Mirapex and gabapentin 18. Staphylococcus aureus pneumonia-with isolated fever on 03/24, low-grade temp today. Sputum culture growing staph aureus-sensitivity pending Increased secretions coming from trach, CT scan of the chest repeated on 03/24 with secretions and likely atelectasis with mild pleural effusions -Follow-up final sensitivity on the Staphylococcus aureus -Continue broad-spectrum antibiotics with cefepime and vancomycin for now -Check blood cultures if spikes fever again 19. Dysphagia-speech evaluation appreciated-on [place] for video swallow tomorrow if more alert, keep n.p.o. again for now Disposition-remain on telemetry, discussed with case management-will see about if insurance will approve LTAC transfer for her in the next 1-2 days PT/OT consultations-should begin passive range of motion while in bed as per pulmonology recommendations
[2018-03-25] MEDS: CASPOFUNGIN INJ 50 MG in SODIUM CHLORIDE 0.9% 250ML 250 ML IV SCH (17:17)
[2018-03-25] MEDS: ROPINIROLE HCL 0.25 MG TAB PO SCH (19:53)
[2018-03-25] MEDS: SIMVASTATIN 20 MG TAB PO SCH (19:53)
[2018-03-25] MEDS: SENNA 8.6 MG TAB PO SCH (19:53)
[2018-03-25] MEDS: CALCIUM CARBONATE 1250MG TAB PO SCH (19:53)
[2018-03-25] MEDS: HYDROmorphone INJ 0.5 MG/0.5 ML SYR IV PRN (20:03)
[2018-03-26] VITALS (14 sets, daily range): BP systolic 118–186; BP diastolic 74–92; PULSE 71–94; TEMP 36.8–37.4; O2SAT 94–100
[2018-03-26] MEDS: CEFEPIME IV 2,000 MG in SYRINGE 7.5 ML IV SCH ×2 (00:23→12:59)
[2018-03-26] MEDS: ALBUT/IPRATROP 3MG/0.5MG NEB 3 ML VIAL NEB SCH ×4 (03:00→19:08)
[2018-03-26] MEDS: LEVOTHYROXINE 100 MCG TAB PO SCH (04:36)
[2018-03-26 05:07] LABS: EOS % 0.2 %; EOS ABS # 0.01 K/uL (0-0.5); HEMATOCRIT 31.7 % (37-47); IG# 0.07 K/uL (0.00-0.02); LYMPH ABS # 0.54 K/uL (1.2-3.4); MEAN CELL VOLUME 95.8 fL (80-100); MEAN CORPUSCULAR HEMOGLOBIN 30.2 pg (25-34); MEAN CORPUSCULAR HGB CONC 31.5 g/dl (32-36); MEAN PLATELET VOLUME 10.4 fL (7.4-10.4); MONO % 11.9 %; MONO ABS # 0.58 K/uL (0.11-0.59); NEUT % 75.5 %; NEUT ABS # 3.69 K/uL (1.4-6.5); NUCLEATED RED BLOOD CELL ABS 0.04 K/uL (0-0); PLATELET COUNT 141 K/uL (130-400); RED CELL DISTRIBUTION WIDTH CV 16.5 % (11.5-14.5); RED CELL DISTRIBUTION WIDTH SD 57.1 fL (36.4-46.3); WHITE BLOOD COUNT 4.89 K/uL (4.8-10.8)
[2018-03-26 05:31] LABS: CALCIUM 7.4 mg/dl (8.5-10.1); CREATININE 0.8 mg/dl (0.60-1.20); POTASSIUM 3.2 mmol/L (3.5-5.1)
[2018-03-26] MEDS: INSULIN ASPART 100 UNITS/ML 3 ML PEN SC SCH ×4 (06:00→18:44)
--- NOTE | 2018-03-26 07:07 | DIAGNOSTIC IMAGING REPORT ---
CHEST ONE VIEW PORTABLE CLINICAL HISTORY: 83 years-old Female presenting with Aspiration. TECHNIQUE: Portable upright AP view of the chest was obtained. COMPARISON: 03/24/2018. FINDINGS: Tracheostomy tube, right upper extremity PICC, bilateral shoulder arthroplasties, anterior and posterior cervical fusion hardware, thoracolumbar fusion hardware, and surgical clips in the epigastrium again noted. Significant diffuse soft tissue emphysema. Due to the severity, underlying pneumomediastinum is difficult to appreciate and better visualized on CT from 03/24/2018. Atherosclerosis of aortic arch. Cardiac silhouette top normal in size. Bronchovascular bundle prominence. Mildly low lung volumes, unchanged. Bibasilar opacities unchanged. Small right and trace left pleural effusions. No large pneumothorax. Chronic separation of the bilateral AC joints versus postsurgical change. IMPRESSION: 1. No significant change in bibasilar infiltrates with small right and trace left pleural effusions. This could represent be compatible with aspiration, although atelectasis and congestive change could appear similarly. Recent CT chest better demonstrates the presence of endobronchial debris and pneumomediastinum. 2. Mildly low lung volumes with hypoventilatory changes as on prior exam. 3. Extensive soft tissue emphysema. Electronically signed by: Jorge Villafana M.D. 03/26/2018 7:06 AM Dictated Date/Time: 03/26/2018 7:01 AM
[2018-03-26] MEDS: NYSTATIN POWDER 15GM BTL EXT SCH ×3 (08:27→20:48)
[2018-03-26] MEDS: CYANOCOBALAMIN 500 MCG TAB (VIT B-12) PO SCH (09:00)
[2018-03-26] MEDS: CHOLECALCIFEROL 1000 INTER.UNIT TAB PO SCH (09:00)
[2018-03-26] MEDS: CALCITRIOL 0.25 MCG CAP PO SCH (09:00)
[2018-03-26] MEDS ORDERED: POTASSIUM CHLR 20 MEQ / WTR 20 MEQ IV SCH (09:00)
[2018-03-26] MEDS: CITALOPRAM 20 MG TAB PO SCH (09:00)
[2018-03-26] MEDS: POTASSIUM CHLORIDE 10 MEQ TABCR PO SCH (09:00)
[2018-03-26] MEDS: SUCRALFATE 1 GM/10 ML UDC PO SCH ×4 (09:00→21:00)
[2018-03-26] MEDS: FERROUS SULFATE 325 MG TAB PO SCH (09:00)
[2018-03-26] MEDS: GABAPENTIN 300 MG CAP PO SCH ×2 (09:00→21:00)
[2018-03-26] MEDS: POLYETHYLENE (MIRALAX) 17 GM PACK PO SCH (09:00)
[2018-03-26] MEDS: PANTOprazole SOD 40 MG TAB PO SCH (09:00)
[2018-03-26] MEDS: CLONIDINE HCL 0.1 MG TAB PO SCH (09:00)
[2018-03-26] MEDS: AMIODARONE 200 MG TAB PO SCH ×3 (09:00→21:00)
--- NOTE | 2018-03-26 09:22 | Surgery Progress Note ---
Surgery Progress Note Date of Service Mar 26, 2018. Subjective Post OP Day: 3 (s/p tracheostomy) per nurse patient aspirated applesauce and had applesauce suctioned from tracheostomy, now NPO (has not been getting bowel regimen or po MEDS), was disimpacted over the weekend and had some leaking stool but no bowel movement since. Objective Vital Signs: Date Time Temp Pulse Resp B/P (MAP) Pulse Ox O2 Delivery O2 Flow Rate FiO2 03/26/18 07:12 71 97 28 03/26/18 07:09 71 24 97 BiPAP/CPAP 03/26/18 06:50 36.8 74 20 151/74 (99) 97 BiPAP 03/26/18 05:36 82 94 03/26/18 03:30 36.9 80 21 186/88 (120) 94 BiPAP 03/26/18 01:30 86 95 28 03/25/18 23:34 36.8 83 20 155/82 (106) 96 BiPAP 03/25/18 22:00 94 BiPAP 03/25/18 21:55 BiPAP 03/25/18 21:50 88 96 28 03/25/18 19:29 37.2 94 24 166/88 (114) 95 Trach Collar 35 03/25/18 18:56 37.3 03/25/18 15:19 37.7 100 18 171/80 (110) 90 Trach Collar 03/25/18 15:10 98 20 165/90 (115) 90 Trach Collar 03/25/18 14:27 92 22 91 Trach Collar 12.0 35 03/25/18 12:19 36.9 91 20 166/83 (110) 95 Trach Collar General Appearance: no apparent distress, + obese, + pertinent finding ( sleeping on encounter) Head: normocephalic, atraumatic Neck: trachea midline, + pertinent finding (tracheostomy present) Abdomen: non tender, non distended, soft, no organomegaly, no pulsatile mass Laboratory Results: Results Past 24 Hours Test 03/25/18 11:42 03/25/18 16:36 03/26/18 00:24 03/26/18 04:43 Range/Units Bedside Glucose 136 200 141 70-90 mg/dl White Blood Count 4.89 4.8-10.8 K/uL Red Blood Count 3.31 4.2-5.4 M/uL Hemoglobin 10.0 12.0-16.0 g/dL Hematocrit 31.7 37-47 % Mean Corpuscular Volume 95.8 80-100 fL Mean Corpuscular Hemoglobin 30.2 25-34 pg Mean Corpuscular Hemoglobin Concent 31.5 32-36 g/dl Platelet Count 141 130-400 K/uL Mean Platelet Volume 10.4 7.4-10.4 fL Neutrophils (%) (Auto) 75.5 % Lymphocytes (%) (Auto) 11.0 % Monocytes (%) (Auto) 11.9 % Eosinophils (%) (Auto) 0.2 % Basophils (%) (Auto) 0.0 % Neutrophils # (Auto) 3.69 1.4-6.5 K/uL Lymphocytes # (Auto) 0.54 1.2-3.4 K/uL Monocytes # (Auto) 0.58 0.11-0.59 K/uL Eosinophils # (Auto) 0.01 0-0.5 K/uL Basophils # (Auto) 0.00 0-0.2 K/uL RDW Standard Deviation 57.1 36.4-46.3 fL RDW Coefficient of Variation 16.5 11.5-14.5 % Immature Granulocyte % (Auto) 1.4 % Immature Granulocyte # (Auto) 0.07 0.00-0.02 K/uL Nucleated RBC Absolute Count (auto) 0.04 0-0 K/uL Nucleated Red Blood Cells % 0.8 % Sodium Level 141 136-145 mmol/L Potassium Level 3.2 3.5-5.1 mmol/L Chloride Level 105 98-107 mmol/L Carbon Dioxide Level 27 21-32 mmol/L Anion Gap 9.0 3-11 mmol/L Blood Urea Nitrogen 16 7-18 mg/dl Creatinine 0.80 0.60-1.20 mg/dl Est Creatinine Clear Calc Drug Dose 56.8 ml/min Estimated GFR () 80.1 Estimated GFR (Non- 69.1 BUN/Creatinine Ratio 20.1 10-20 Random Glucose 88 70-99 mg/dl Calcium Level 7.4 8.5-10.1 mg/dl Magnesium Level 2.0 1.8-2.4 mg/dl Procalcitonin 0.10 0-0.5 ng/ml Test 03/26/18 06:06 03/26/18 08:20 Range/Units Bedside Glucose 83 85 70-90 mg/dl Assessment & Plan Abdominal pain on admission,Severe constipation, Stercoral colitis? - afebrile, no leukocytosis - 2 CT scan of abdomen and pelvis without intra-abdominal findings - Resolution of elevated lactic acid - GB US negative - Abdomen completely soft, nontender on examination today Plan: No surgical intervention required Continue medical management May require enema if patient becomes impacted again since she is NPO due to aspiration may require parental nutrition our services signing off, call with questions or concerns Dr. Bansal has seen pt, agrees with above
[2018-03-26] MEDS: D5W AND 1/2NSS + 20MEQ KCL 1,000 ML IV SCH (09:40)
[2018-03-26] MEDS: POTASSIUM CHLR 20MEQ / WTR IV SCH ×2 (09:43→11:35)
--- NOTE | 2018-03-26 10:15 | Pulmonology Progress Note ---
Pulmonary Progress Note Date of Service Mar 26, 2018. Attending Dr. Oleary Subjective The patient appeared comfortable however she was complaining of pain mainly in the neck area. Patient status post tracheostomy. She denies any nausea, she is comfortable laying down. Low-grade fever was reported yesterday. Unable to swallow even applesauce. Objective Patient was stable saturations and notable tracheal aspirate on tracheal suctioning: Was asleep when I walked in the room showing no signs of respiratory insufficiency PmHx: Pulmonary embolism, sleep apnea/OHV, COPD, oxygen dependent 2-5L, diaphragmatic insufficiency/status post fundoplication, steroid-induced myopathy , orthostatic hypotension, hypertension, sclerotic aortic valve, chronic lymphedema, paroxysmal atrial fibrillation, chronic shortness of breath, C diff positive, recurrent UTIs Vital Signs/Physical Exam: SaO2: 90-97% on Venti-mask 21-35% Tmax: 37.2 Neck: Fresh tracheostomy minimal bleeding no signs of breakdown, mild sub-q fremitus Tracheostomy: Mucus secretions noted on tracheostomy suctioning Respiratory: Rhonchi appreciated right lower lobe Cardiac: S1-S2 Abdomen: Positive bowel sounds soft non-tender to deep palpation Labs: Procalcitonin: 0.5 CRP: 0.52 elevated Lactic acid: 1.0 WBC: 6K CT of the abdomen 03/21/2018: Shows continuation bilateral right greater than left atelectasis, no acute changes Urine: Rabia Glabrata Tracheal Aspirate: Staphylococcus Aureus Current Pulmonary Medications/antibiotics/antifungals: 1. Methylprednisolone 40 mg IV daily 2. Caspofungin 50 mg Q 24 (Day#: 3) 3. Spiriva 2 puffs b.i.d. 4. Pantoprazole 40 mg q.day 5. Duo nebs q.6 hours 6. Vancomycin (Day#: 2) 7. Cefepime (Day#: 2) Microbiology URINE: (07/24/15) Escherichia coli (09/01/15) Enterococcus faecalis (12/08/15) Lactobacillus species (11/25/16) Citrobacter species (07/07/17) Escherichia coli (07/24/17) Escherichia coli (03/20/18) Rabia Glabrata Respiratory Bronchial washing (06/29/2010) MRSA Bronchial washing left upper lobe (01/25/16) Fungal Species Right lower lobe bronchial washing (06/30/16) Fungal Species Bronchial washing right middle lobe (11/28/16) MRSA Bronchial washing right middle (01/15/17) Fungal Species Bronchial washing right and left lower lobe (10/09/2017) Bordetella Bronchiseptica Tracheal Aspirate (03/24/18): Staphylococcus Aureus Blood (04/24/16) Propionibacterium acnes Skin (04/17/17) right lower extremity: Pseudomonas aeruginosa, Enterococcus faecalis Stool C. difficile testing for 06/07/2018: Positive Physical exam on 03/26/2018 showed low-grade temperature yesterday, S1-S2 regular rate and rhythm, she does have rhonchi bilaterally, copious amount of secretions from the tracheostomy tube, edema in the periphery, abdomen is benign. Assessment & Plan 1. Morbid obesity with BMI more than 30. 2. Obstructive sleep apnea with CO2 retention. 3. COPD with cor pulmonale. 4. Acute on chronic respiratory failure, currently with tracheostomy tube. 5. A. fib with RVR. 6. Aspiration pneumonitis. 7. Subcu emphysema, iatrogenic, resolving. 8. Mild CHF with bilateral pleural effusion. 9. chronic hypercapnic respiratory failure. Plan: 1. Continue current antibiotic and downgrade them later if the patient is not febrile. Patient has no leukocytosis. 2. Continue with prednisone 30 mg. 3. Consult GI for PEG tube placement. The patient is clearly aspirating. 4. Discontinue Spiriva, the patient has a trach tube in place and will continue with short acting beta agonist on scheduled dose. 5. The patient is unable to take any of her pills due to dysphagia. Thank you, will follow. Data Medications: Current Inpatient Medications Medications (Trade) Dose Ordered Sig/Natasha Route Start Time Stop Time Status Last Admin Dose Admin Acetaminophen (Tylenol Tab) 650 mg Q4H PRN PO 03/15/18 18:30 04/14/18 18:29 03/19/18 20:01 650 MG Al Hydrox/Mg Hydrox/Simethicone (Maalox Max Susp) 15 ml Q4H PRN PO 03/15/18 18:30 04/14/18 18:29 Magnesium Hydroxide (Milk Of Magnesia Susp) 30 ml Q12H PRN PO 03/15/18 18:30 04/14/18 18:29 Ondansetron HCl (Zofran Inj) 4 mg Q6H PRN IV 6/28/18 18:30 04/14/18 18:29 Albuterol Sulfate (Ventolin 0.083% 2.5MG/3ML Neb) 2.5 mg Q4H PRN INH 03/15/18 18:30 04/14/18 18:29 Albuterol/ Ipratropium (Duoneb) 3 ml Q6R NEB 03/15/18 21:00 04/14/18 20:59 03/26/18 07:08 3 ML Butalbital/ Aspirin/Caffeine (Fiorinal Tab/ CAP) 1 tab Q4 PRN PO 03/15/18 20:00 04/14/18 19:59 03/17/18 08:17 1 TAB Calcitriol (Rocaltrol Cap) 0.25 mcg DAILY PO 03/16/18 09:00 04/15/18 08:59 03/24/18 11:37 0.25 MCG Cholecalciferol (Vitamin D Tab) 1,000 inter.unit DAILY PO 03/16/18 09:00 04/15/18 08:59 03/24/18 11:38 1,000 INTER.UNIT Citalopram Hydrobromide (celeXA TAB) 30 mg DAILY PO 03/16/18 09:00 04/15/18 08:59 03/24/18 11:35 30 MG Diclofenac Sodium (Voltaren 1% Top Gel) 1 appln QID PRN EXT 03/15/18 19:30 04/14/18 19:29 03/18/18 08:30 1 APPLN Gabapentin (Neurontin Cap) 300 mg BID PO 03/15/18 21:00 04/14/18 20:59 03/24/18 11:36 300 MG Levothyroxine Sodium (Synthroid Tab) 100 mcg DAILYBB PO 03/16/18 06:00 04/15/18 06:59 Future hold 03/23/18 05:55 100 MCG Lorazepam (Ativan Tab) 0.25 mg for mild anxiety/ sl... Q6 PRN PO 03/15/18 18:30 04/14/18 18:29 Future Hold 03/18/18 21:12 0.25 MG Nystatin (Mycostatin Powder) 1 appln TID EXT 03/15/18 21:00 04/14/18 20:59 03/26/18 08:27 1 APPLN Ropinirole HCl (Requip Tab) 0.5 mg HS PO 03/15/18 21:00 04/14/18 20:59 03/22/18 21:06 0.5 MG Simvastatin (Zocor Tab) 20 mg HS PO 03/15/18 21:00 04/14/18 20:59 03/22/18 21:06 20 MG Sucralfate (Carafate Susp) 1 gm QID PO 03/15/18 21:00 04/14/18 20:59 03/24/18 12:22 1 GM Tramadol HCl (Ultram Tab) 50 mg Q6H PRN PO 03/15/18 18:30 04/14/18 18:29 03/22/18 11:41 50 MG Apixaban (Eliquis Tab) 5 mg BID PO 03/15/18 21:00 04/14/18 20:59 Future Hold 03/19/18 08:54 5 MG Calcium Carbonate (oS-Misael 500 TAB) 2,500 mg HS PO 03/15/18 21:00 04/14/18 20:59 03/22/18 21:07 2,500 MG Cyanocobalamin (Vitamin B-12 Tab) 1,000 mcg QAM PO 03/16/18 09:00 04/15/18 08:59 03/24/18 11:39 1,000 MCG Pantoprazole Sodium (Protonix Tab) 40 mg QAM PO 03/16/18 09:00 04/15/18 08:59 03/24/18 11:37 40 MG Ferrous Sulfate (Feosol Tab) 325 mg DAILY PO 03/16/18 09:00 04/15/18 08:59 03/24/18 11:36 325 MG Miscellaneous Information (Order Awaiting Action) 1 ea QS N/A 03/16/18 00:00 04/15/18 00:00 03/18/18 18:49 1 EA Potassium Chloride (Klor-Con M10) 20 meq DAILY PO 03/16/18 09:00 04/15/18 08:59 03/24/18 11:36 20 MEQ Glucose (Glucose 40% Gel) 15-30 GRAMS 15 GRAMS... UD PRN PO 03/15/18 19:00 04/14/18 18:59 Glucose (Glucose Chew Tab) 4-8 Tablets 4 Tabl... UD PRN PO 03/15/18 19:00 04/14/18 18:59 Dextrose (Dextrose 50% 50ML Syringe) 25-50ML 25ML FOR ... UD PRN IV 03/15/18 19:00 04/14/18 18:59 Glucagon (Glucagon Inj) 1 mg UD PRN SQ 03/15/18 19:00 04/14/18 18:59 Carbohydrates (Carbohydrates For Hypoglycemia) 15-30 GRAMS 15 grams if BSG 54-69... UD PRN PO 03/15/18 19:00 04/14/18 18:59 Clonidine HCl (Catapres Tab) 0.1 mg QAM PO 03/18/18 09:00 04/17/18 08:59 03/24/18 11:35 0.1 MG Heparin Sodium (Porcine) (Heparin 10 Unit/ ml 5 ml Flush) 5 ml PRN PRN FLUSH 03/20/18 00:30 04/19/18 00:29 Enoxaparin Sodium (Lovenox Inj) 80 mg Q12 SQ 03/20/18 16:00 04/19/18 20:59 Future Hold 03/22/18 08:22 80 MG Amiodarone HCl (Cordarone Tab) 200 mg TID PO 03/20/18 21:00 03/28/18 23:59 03/24/18 15:04 200 MG Amiodarone HCl (Cordarone Tab) 200 mg DAILY PO 03/29/18 09:00 04/28/18 08:59 Tiotropium Exchange (Spiriva Respimat) 2 puff BID INH 03/21/18 21:00 04/20/18 20:59 03/25/18 09:19 2 PUFF Non-Formulary Medication (Non-Formulary Patient'S Own Med) 1 ea DAILY PO 03/22/18 09:00 04/21/18 08:59 03/24/18 11:37 1 EA Prednisone (PredniSONE TAB) 30 mg DAILY PO 03/22/18 09:00 04/17/18 08:59 Future hold 03/22/18 10:45 30 MG Hydromorphone HCl (Dilaudid Inj) 0.25 mg Q1H PRN IV 03/23/18 11:30 04/06/18 11:29 03/25/18 20:03 0.25 MG Caspofungin 50 mg/ Sodium Chloride 260 ml @ 250 mls/hr Q24H IV 03/24/18 18:00 03/29/18 18:14 03/25/18 17:17 250 MLS/HR Vancomycin HCl 1250 mg/Sodium Chloride 275 ml @ 125 mls/hr Q24H IV 03/25/18 12:00 04/01/18 11:59 03/25/18 12:09 125 MLS/HR Vancomycin HCl (Consult) 1 ea UD PRN N/A 03/24/18 11:00 04/23/18 10:59 Cefepime HCl 2000 mg/Syringe 20 ml @ 5 mls/min Q12H IV 03/24/18 12:00 03/31/18 11:59 03/26/18 00:23 5 MLS/MIN Polyethylene (Miralax Powder Packet) 17 gm DAILY PO 03/25/18 09:00 04/14/18 18:29 Senna (Senokot Tab) 17.2 mg HS PO 03/24/18 21:00 04/23/18 20:59 Acetaminophen 100 ml @ 400 mls/hr Q8H PRN IV 03/25/18 15:45 04/24/18 15:44 03/25/18 16:00 400 MLS/HR Insulin Aspart (novoLOG ASPART) SLIDING SCALE If C... Q6 SC 03/26/18 00:00 04/25/18 00:00 Potassium Chloride/Dextrose/ Sod Cl 1,000 ml @ 75 mls/hr [id number] IV 03/26/18 10:00 04/25/18 09:59 03/26/18 09:40 75 MLS/HR Potassium Chloride 20 meq/ Prmx 100 ml @ 50 mls/hr Q2H IV 03/26/18 09:15 03/26/18 13:14 03/26/18 09:43 50 MLS/HR Vital Signs: Date Time Temp Pulse Resp B/P (MAP) Pulse Ox O2 Delivery O2 Flow Rate FiO2 03/26/18 07:12 71 97 28 03/26/18 07:09 71 24 97 BiPAP/CPAP 28 03/26/18 06:50 36.8 74 20 151/74 (99) 97 BiPAP 03/26/18 05:36 82 94 28 03/26/18 03:30 36.9 80 21 186/88 (120) 94 BiPAP 03/26/18 01:30 86 95 28 03/25/18 23:34 36.8 83 20 155/82 (106) 96 BiPAP 03/25/18 22:00 94 BiPAP 28 03/25/18 21:55 BiPAP 28 03/25/18 21:50 88 96 28 03/25/18 19:29 37.2 94 24 166/88 (114) 95 Trach Collar 35 03/25/18 18:56 37.3 03/25/18 15:19 37.7 100 18 171/80 (110) 90 Trach Collar 03/25/18 15:10 98 20 165/90 (115) 90 Trach Collar 03/25/18 14:27 92 22 91 Trach Collar 12.0 35 03/25/18 12:19 36.9 91 20 166/83 (110) 95 Trach Collar Laboratory Results: Last 24 Hours Test 03/25/18 11:42 03/25/18 16:36 03/26/18 00:24 03/26/18 04:43 Bedside Glucose 136 mg/dl 200 mg/dl 141 mg/dl White Blood Count 4.89 K/uL Red Blood Count 3.31 M/uL Hemoglobin 10.0 g/dL Hematocrit 31.7 % Mean Corpuscular Volume 95.8 fL Mean Corpuscular Hemoglobin 30.2 pg Mean Corpuscular Hemoglobin Concent 31.5 g/dl Platelet Count 141 K/uL Mean Platelet Volume 10.4 fL Neutrophils (%) (Auto) 75.5 % Lymphocytes (%) (Auto) 11.0 % Monocytes (%) (Auto) 11.9 % Eosinophils (%) (Auto) 0.2 % Basophils (%) (Auto) 0.0 % Neutrophils # (Auto) 3.69 K/uL Lymphocytes # (Auto) 0.54 K/uL Monocytes # (Auto) 0.58 K/uL Eosinophils # (Auto) 0.01 K/uL Basophils # (Auto) 0.00 K/uL RDW Standard Deviation 57.1 fL RDW Coefficient of Variation 16.5 % Immature Granulocyte % (Auto) 1.4 % Immature Granulocyte # (Auto) 0.07 K/uL Nucleated RBC Absolute Count (auto) 0.04 K/uL Nucleated Red Blood Cells % 0.8 % Sodium Level 141 mmol/L Potassium Level 3.2 mmol/L Chloride Level 105 mmol/L Carbon Dioxide Level 27 mmol/L Anion Gap 9.0 mmol/L Blood Urea Nitrogen 16 mg/dl Creatinine 0.80 mg/dl Est Creatinine Clear Calc Drug Dose 56.8 ml/min Estimated GFR () 80.1 Estimated GFR (Non- 69.1 BUN/Creatinine Ratio 20.1 Random Glucose 88 mg/dl Calcium Level 7.4 mg/dl Magnesium Level 2.0 mg/dl Procalcitonin 0.10 ng/ml Test 03/26/18 06:06 03/26/18 08:20 Bedside Glucose 83 mg/dl 85 mg/dl
--- NOTE | 2018-03-26 10:49 | Progress Note ---
Subjective Date of Service: Mar 26, 2018. Subjective Pt evaluation today including: physical exam, chart review, lab review pt seen in followup, noted to have aspirated yesterday. remains on caspo, tolerating well. nonverbal on my exam today, afebrile currently, tmax 37.7. placed on vanco and cefepime by pulm due to concern for PNA, sputum culture growing MRSA, sensitive to vanco. Problem List Medical Problems: (1) Cervical strain Status: Acute (2) Contusion of multiple sites Status: Acute (3) COPD exacerbation Status: Acute (4) Fall Status: Acute (5) Fall from chair, initial encounter Status: Acute (6) Fatigue Status: Acute (7) Head injury Status: Acute (8) Head injury Status: Acute (9) Hip pain Status: Acute (10) Hypocalcemia Status: Acute (11) Hypoxia Status: Acute (12) Hypoxia Status: Acute (13) Lower extremity edema Status: Acute (14) PNA (pneumonia) Status: Acute (15) Pneumonia Status: Acute (16) Pneumonitis Status: Acute (17) Reactive airway disease Status: Acute (18) Right flank pain Status: Acute (19) Sepsis Status: Acute (20) Sepsis Status: Acute (21) Syncope Status: Acute (22) Traumatic compression fracture of third thoracic vertebra Status: Acute (23) Vaginal yeast infection Status: Acute (24) Weakness Status: Acute (25) Yeast vaginitis Status: Acute Objective Vital Signs Date Time Temp Pulse Resp B/P (MAP) Pulse Ox O2 Delivery O2 Flow Rate FiO2 03/26/18 08:00 94 Trach Collar 35 03/26/18 07:12 71 97 28 03/26/18 07:09 71 24 97 BiPAP/CPAP 03/26/18 06:50 36.8 74 20 151/74 (99) 97 BiPAP 03/26/18 05:36 82 94 28 03/26/18 03:30 36.9 80 21 186/88 (120) 94 BiPAP 03/26/18 01:30 86 95 28 03/25/18 23:34 36.8 83 20 155/82 (106) 96 BiPAP 03/25/18 22:00 94 BiPAP 03/25/18 21:55 BiPAP 28 03/25/18 21:50 88 96 28 03/25/18 19:29 37.2 94 24 166/88 (114) 95 Trach Collar 35 03/25/18 18:56 37.3 03/25/18 15:19 37.7 100 18 171/80 (110) 90 Trach Collar 03/25/18 15:10 98 20 165/90 (115) 90 Trach Collar 03/25/18 14:27 92 22 91 Trach Collar 12.0 35 03/25/18 12:19 36.9 91 20 166/83 (110) 95 Trach Collar Physical Exam General Appearance: + pertinent finding (non verbal, comfortable) Neck: supple, + pertinent finding (trach site c/d/i) Respiratory/Chest: lungs clear, no respiratory distress, + decreased breath sounds Cardiovascular: regular rate, rhythm, no edema Abdomen: soft Extremities: no pedal edema Skin: normal color Laboratory Results Item Value Date Time Gram Stain - Final Resulted 03/24/18 1425 Sputum Trach. Tube Suction Urine Culture - Final Complete 03/20/18 0000 Urine,Catheterized Rabia Glabrata (T. Glabrata) Blood Culture - Final Complete 03/15/18 1459 Blood NO GROWTH Blood Culture - Final Complete 03/15/18 1447 Blood NO GROWTH Last 24 Hours Test 03/25/18 11:42 03/25/18 16:36 03/26/18 00:24 03/26/18 04:43 Bedside Glucose 136 mg/dl 200 mg/dl 141 mg/dl White Blood Count 4.89 K/uL Red Blood Count 3.31 M/uL Hemoglobin 10.0 g/dL Hematocrit 31.7 % Mean Corpuscular Volume 95.8 fL Mean Corpuscular Hemoglobin 30.2 pg Mean Corpuscular Hemoglobin Concent 31.5 g/dl Platelet Count 141 K/uL Mean Platelet Volume 10.4 fL Neutrophils (%) (Auto) 75.5 % Lymphocytes (%) (Auto) 11.0 % Monocytes (%) (Auto) 11.9 % Eosinophils (%) (Auto) 0.2 % Basophils (%) (Auto) 0.0 % Neutrophils # (Auto) 3.69 K/uL Lymphocytes # (Auto) 0.54 K/uL Monocytes # (Auto) 0.58 K/uL Eosinophils # (Auto) 0.01 K/uL Basophils # (Auto) 0.00 K/uL RDW Standard Deviation 57.1 fL RDW Coefficient of Variation 16.5 % Immature Granulocyte % (Auto) 1.4 % Immature Granulocyte # (Auto) 0.07 K/uL Nucleated RBC Absolute Count (auto) 0.04 K/uL Nucleated Red Blood Cells % 0.8 % Sodium Level 141 mmol/L Potassium Level 3.2 mmol/L Chloride Level 105 mmol/L Carbon Dioxide Level 27 mmol/L Anion Gap 9.0 mmol/L Blood Urea Nitrogen 16 mg/dl Creatinine 0.80 mg/dl Est Creatinine Clear Calc Drug Dose 56.8 ml/min Estimated GFR () 80.1 Estimated GFR (Non- 69.1 BUN/Creatinine Ratio 20.1 Random Glucose 88 mg/dl Calcium Level 7.4 mg/dl Magnesium Level 2.0 mg/dl Procalcitonin 0.10 ng/ml Test 03/26/18 06:06 03/26/18 08:20 Bedside Glucose 83 mg/dl 85 mg/dl Assessment and Plan (1) UTI (urinary tract infection) Assessment & Plan: continue caspo as planned (2) MRSA pneumonia Continued [facility] stay due to: voiding difficulties, ambulation difficulties, multiple IV medications needed, other (need for trach) Discharge planning: uncertain
[2018-03-26] MEDS ORDERED: VANCOMYCIN TROUGH ONE (11:30)
[2018-03-26] MEDS: TIOTROPIUM BROMIDE 28 PUFF/4 GM INH INH SCH (11:33)
--- NOTE | 2018-03-26 12:44 | Pharmacy Progress Note ---
Pharmacy Abx Dose Short Note Date of Service Mar 26, 2018. Assessment & Plan Item Value Date Time Vancomycin Level Trough 10.5 mcg/ml 03/26/18 1134 Gram Stain - Final Resulted 03/24/18 1425 Sputum Trach. Tube Suction Urine Culture - Final Complete 03/20/18 0000 Urine,Catheterized Rabia Glabrata (T. Glabrata) Assessment 83 year old female receiving Vancomycin 1250mg Q24H for treatment of pneumonia with MRSA in her sputum. Patient is also on Cefepime 2gm Q12H and Caspofungin 50mg Q24H for her UTI Day # 3 of antimicrobial therapy. Plan Vancomycin * Trough level of 10.5 mcg/mL is subtherapeutic, but level was drawn PRIOR to steady state. * Change to 1250 mg IV every 18 hours * Estimated pharmacokinetics: ke~0.05, t1/2=13.5 hours * Goal trough level for Pneumonia : 15 to 20 mcg/mL * Trough level ordered for: 03/28/18 at 1730 Pharmacy will continue to follow and will adjust dose/frequency as necessary. Thank you.
[2018-03-26] MEDS: VANCOMYCIN IV 1,250 MG in SODIUM CHLORIDE 0.9% 250ML 250 ML IV SCH (13:00)
[2018-03-26] MEDS ORDERED: METHYLPREDNISOLONE IV 30 MG in SYRINGE 0 ML IV SCH (17:08)
--- NOTE | 2018-03-26 17:54 | Hospitalist Progress Note ---
Hospitalist Progress Note Date of Service Mar 26, 2018. Subjective Pt evaluation today including: conversation w/ patient, conversation w/ family , conversation w/ enrollment consultant (Speech Therapy), review of inpatient medication list Voiding: christian catheter in place Speech therapy evaluated the patient today in she is clearly aspirating, was not safe to do a swallow study. Patient denies pain today. She has been drowsy but does wake up and answer questions. When asked if she would like a PEG tube, she shakes her head no, however she shakes her head yes to NG tube for feeding. She has not been able to take any of her p.o. meds. She has remained in normal sinus rhythm PACs and PVCs on telemetry. Discussed her case with her daughter at length All Other Systems: Reviewed and Negative Objective Vital Signs Date Time Temp Pulse Resp B/P (MAP) Pulse Ox O2 Delivery O2 Flow Rate FiO2 03/26/18 15:25 37.4 83 20 118/77 (91) 98 Trach Collar 35 03/26/18 14:20 84 24 99 BiPAP/CPAP 03/26/18 11:37 37.0 94 20 138/84 (102) 97 Trach Collar 03/26/18 08:00 94 Trach Collar 35 03/26/18 07:12 71 97 28 03/26/18 07:09 71 24 97 BiPAP/CPAP 03/26/18 06:50 36.8 74 20 151/74 (99) 97 BiPAP 03/26/18 05:36 82 94 03/26/18 03:30 36.9 80 21 186/88 (120) 94 BiPAP 03/26/18 01:30 86 95 28 03/25/18 23:34 36.8 83 20 155/82 (106) 96 BiPAP 03/25/18 22:00 94 BiPAP 03/25/18 21:55 BiPAP 28 03/25/18 21:50 88 96 28 03/25/18 19:29 37.2 94 24 166/88 (114) 95 Trach Collar 35 03/25/18 18:56 37.3 Physical Exam General Appearance: WD/WN, no apparent distress, + obese Eyes: normal inspection, sclerae normal ENT: hearing grossly normal Neck: trachea midline (Tracheostomy in place) Respiratory/Chest: no respiratory distress, no accessory muscle use, + rhonchi (In the upper lung madden bilaterally) Cardiovascular: regular rate, rhythm, no edema, no murmur Abdomen: normal bowel sounds, non tender, soft Extremities: normal inspection, no pedal edema, no calf tenderness Neurologic/Psychiatric: alert, normal mood/affect Skin: normal color, warm/dry, no rash Laboratory Results Last 24 Hours Test 03/26/18 00:24 03/26/18 04:43 03/26/18 06:06 03/26/18 08:20 Bedside Glucose 141 mg/dl 83 mg/dl 85 mg/dl White Blood Count 4.89 K/uL Red Blood Count 3.31 M/uL Hemoglobin 10.0 g/dL Hematocrit 31.7 % Mean Corpuscular Volume 95.8 fL Mean Corpuscular Hemoglobin 30.2 pg Mean Corpuscular Hemoglobin Concent 31.5 g/dl Platelet Count 141 K/uL Mean Platelet Volume 10.4 fL Neutrophils (%) (Auto) 75.5 % Lymphocytes (%) (Auto) 11.0 % Monocytes (%) (Auto) 11.9 % Eosinophils (%) (Auto) 0.2 % Basophils (%) (Auto) 0.0 % Neutrophils # (Auto) 3.69 K/uL Lymphocytes # (Auto) 0.54 K/uL Monocytes # (Auto) 0.58 K/uL Eosinophils # (Auto) 0.01 K/uL Basophils # (Auto) 0.00 K/uL RDW Standard Deviation 57.1 fL RDW Coefficient of Variation 16.5 % Immature Granulocyte % (Auto) 1.4 % Immature Granulocyte # (Auto) 0.07 K/uL Nucleated RBC Absolute Count (auto) 0.04 K/uL Nucleated Red Blood Cells % 0.8 % Sodium Level 141 mmol/L Potassium Level 3.2 mmol/L Chloride Level 105 mmol/L Carbon Dioxide Level 27 mmol/L Anion Gap 9.0 mmol/L Blood Urea Nitrogen 16 mg/dl Creatinine 0.80 mg/dl Est Creatinine Clear Calc Drug Dose 56.8 ml/min Estimated GFR () 80.1 Estimated GFR (Non- 69.1 BUN/Creatinine Ratio 20.1 Random Glucose 88 mg/dl Calcium Level 7.4 mg/dl Magnesium Level 2.0 mg/dl Procalcitonin 0.10 ng/ml Test 03/26/18 11:34 7/9/18 12:04 Vancomycin Level Trough 10.5 mcg/ml Bedside Glucose 85 mg/dl Assessment and Plan This patient is an 83yo female with a complex medical history, here with acute metabolic and toxic encephalopathy, lactic acidosis, abdominal pain all likely secondary to stercoral colitis. Also with Rabia glabrata UTI and underwent planned tracheostomy for chronic aspiration and respiratory failure. 1. Acute metabolic and toxic encephalopathy -was resolved, however now returned possibly secondary to staph pneumonia, but improving today Suspect that previously, it was toxic from recent pain meds/benzos as well as metabolic from the lactic acidosis and severe constipation. CT head, ammonia, VBG, blood cultures, etc were all normal early on. -Now treating for pneumonia as below 2. new-onset a. fib - converted to NSR and continues to remain NSR despite not being able to take amiodarone for the last couple of days Restart when NG tube placed-oral amiodarone 200mg tid until 03/29 and then reduced to 200 mg once daily Holding lovenox bridge due to trach placement-restart when okay with surgery versus going back to Eliquis -Continue telemetry monitoring -Follow electrolytes and replace as needed 3. abdominal pain with lactic acidosis - 03/15/[address] without pathology. Lactate now normal CT 03/20/18 normal except for moderate constipation. There has been NO signs of an ischemic bowel process. Gall bladder w/u was negative. She passed a rock-solid stool this admission and despite such still had copious stool on MONTY. Possibly this was secondary to low-grade stercolitis? This certainly could have caused abd pain, lactic acidosis, and confusion. Appreciate gen surg consult. Nothing surgical at this time. -continue aggressive bowel regimen once enteral feedings begin -LFTs, lipase, sed rate, and crp have been reassuring.. 4. chronic hypoxic respiratory failure - stable -currently on trach collar. 5. right-sided chest/abd pain at admission - etiology uncertain; ACS was ruled out; PE was ruled out. See #3 above. I believe the abdominal pain was likely due to severe constipation. 6. Rabia glabrata UTI-initial UA and urine culture were negative, repeat on was worse and patient had symptoms of dysuria at that time. Urine culture growing Rabia glabrata -Continue IV caspofungin through 03/27 -Appreciate infectious disease consultation 7. 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 Dr. Velazquez took her to the OR on 03/23 for tracheostomy Eliquis and lovenox bridge both on hold. -Further trach care as per pulmonary and ENT -Pulmonology to order vent settings for overnight -Possibly will transfer to LTAC in the next 1-2 days if accepted and approved for fresh tracheostomy care 7. COPD -pulmonology said that she never had COPD before, likely just hypoventilation due to plication and steroid-induced myopathy as above-she is now steroid dependent/steroid-induced myopathy; recently weaned to prednisone 30 mg-which was converted to IV SoluMedrol again today as she was not able to take her morning prednisone dose -Once she is taking p.o. so will revert back to prednisone 30 mg daily and needs to taper down slowly over the next year 8. H/O DVTs - noted; remains on anticoagulation which is on hold for surgery. 9. CKD stage 3 - creatinine stable. 10. Hypothyroidism - compensated; cont IV Synthroid-and revert back to p.o. when start enteral feeds 11. T2DM - controlled. Hemoglobin A1c 7.1% -Continue insulin sliding scale, Accu-Cheks -Basal insulin on hold from home 12. chronic diastolic CHF - compensated 13. right-sided elevated Hemidiaphragm - S/P Plication in the past. 14. elevated lactate level - due to #3 above? resolved. 15. HTN - controlled on no meds for now -Restart clonidine when taking p.o., otherwise as needed IV meds 16. History of orthostatic hypotension-takes midodrine as needed-on hold now 17. RLS-takes Mirapex and gabapentin-both on hold now 18. MRSA pneumonia-with isolated fever on 03/24 Increased secretions coming from trach, CT scan of the chest repeated on 03/24 with secretions and likely atelectasis with mild pleural effusions -Continue broad-spectrum antibiotics with cefepime and vancomycin for now -Check blood cultures if spikes fever again -Aggressive suctioning 19. Dysphagia-speech evaluation appreciated-remain n.p.o. -GI consultation to discuss PEG tube, however patient and daughter unsure if they would want that at this point -May drop Dobbhoff feeding tube tomorrow 20. Hypokalemia-replaced IV Disposition-remain on telemetry, discussed with case management-will see about if insurance will approve LTAC transfer for her in the next 1-2 days PT/OT consultations-should begin passive range of motion while in bed as per pulmonology recommendations
[2018-03-26] MEDS: CASPOFUNGIN INJ 50 MG in SODIUM CHLORIDE 0.9% 250ML 250 ML IV SCH (18:36)
[2018-03-26] MEDS: SIMVASTATIN 20 MG TAB PO SCH (21:00)
[2018-03-26] MEDS: ROPINIROLE HCL 0.25 MG TAB PO SCH (21:00)
[2018-03-26] MEDS: CALCIUM CARBONATE 1250MG TAB PO SCH (21:00)
[2018-03-26] MEDS: SENNA 8.6 MG TAB PO SCH (21:00)
[2018-03-26] MEDS: ACETAMINOPHEN IV 1000MG/100ML IV PRN (21:52)
[2018-03-26] MEDS ORDERED: LORAZEPAM 2 MG/ML 1 ML VIAL IV STA (23:04)
[2018-03-27] VITALS (15 sets, daily range): BP systolic 158–168; BP diastolic 65–102; PULSE 81–111; TEMP 36.4–37.2; O2SAT 95–100
[2018-03-27] MEDS: CEFEPIME IV 2,000 MG in SYRINGE 7.5 ML IV SCH ×2 (00:06→12:27)
[2018-03-27] MEDS: D5W AND 1/2NSS + 20MEQ KCL 1,000 ML IV SCH ×2 (00:06→18:28)
[2018-03-27] MEDS: ALBUT/IPRATROP 3MG/0.5MG NEB 3 ML VIAL NEB SCH ×4 (02:00→19:43)
[2018-03-27 05:08] LABS: CREATININE 0.8 mg/dl (0.60-1.20)
[2018-03-27] MEDS: VANCOMYCIN IV 1,250 MG in SODIUM CHLORIDE 0.9% 250ML 250 ML IV SCH (05:40)
[2018-03-27] MEDS: INSULIN ASPART 100 UNITS/ML 3 ML PEN SC SCH ×4 (05:51→18:27)
[2018-03-27 08:49] LABS: CALCIUM 7.4 mg/dl (8.5-10.1); CREATININE 0.74 mg/dl (0.60-1.20); POTASSIUM 3.6 mmol/L (3.5-5.1)
[2018-03-27] MEDS: CLONIDINE HCL 0.1 MG TAB PO SCH (09:00)
[2018-03-27] MEDS: FERROUS SULFATE 325 MG TAB PO SCH (09:00)
[2018-03-27] MEDS ORDERED: METHYLPREDNISOLONE IV 30 MG in SYRINGE 0 ML IV SCH (09:00)
[2018-03-27] MEDS: NYSTATIN POWDER 15GM BTL EXT SCH ×3 (09:00→21:25)
[2018-03-27] MEDS: SUCRALFATE 1 GM/10 ML UDC PO SCH ×3 (09:00→16:58)
[2018-03-27] MEDS: CALCITRIOL 0.25 MCG CAP PO SCH (09:00)
[2018-03-27] MEDS: POLYETHYLENE (MIRALAX) 17 GM PACK PO SCH (09:00)
[2018-03-27] MEDS: CITALOPRAM 20 MG TAB PO SCH (09:00)
[2018-03-27] MEDS: AMIODARONE 200 MG TAB PO SCH ×2 (09:00→13:59)
[2018-03-27] MEDS: CHOLECALCIFEROL 1000 INTER.UNIT TAB PO SCH (09:00)
[2018-03-27] MEDS: CYANOCOBALAMIN 500 MCG TAB (VIT B-12) PO SCH (09:00)
[2018-03-27] MEDS: GABAPENTIN 300 MG CAP PO SCH (09:00)
[2018-03-27] MEDS: LEVOTHYROXINE SODIUM INJ 50 MCG in SYRINGE 0 ML IV SCH (09:11)
--- NOTE | 2018-03-27 10:30 | Hospitalist Progress Note ---
Hospitalist Progress Note Date of Service Mar 27, 2018. Subjective Pt evaluation today including: conversation w/ patient, conversation w/ home performance consultant (GI) Voiding: christian catheter in place Pt resting comfortably. Opens eyes to answer some questions, keeps them closed for others. Shakes her head yes today to agreement to getting a PEG tube.Says she is having some abd pain. Remains in NSR on tele All Other Systems: Reviewed and Negative Objective Vital Signs Date Time Temp Pulse Resp B/P (MAP) Pulse Ox O2 Delivery O2 Flow Rate FiO2 03/27/18 09:00 Trach Collar 10.0 28 03/27/18 07:29 82 98 28 03/27/18 06:50 37.1 89 22 166/102 (123) 98 BiPAP 85 Trach Collar 03/27/18 05:08 94 97 28 03/27/18 04:07 36.9 92 18 163/81 (108) 97 BiPAP Trach Collar 03/27/18 02:03 81 96 28 03/27/18 02:02 81 28 96 BiPAP/CPAP 28 03/27/18 00:00 96 Trach Collar 03/26/18 23:11 37.1 91 18 162/92 (115) 97 Trach Collar 03/26/18 22:00 91 96 28 03/26/18 19:39 37.2 91 18 158/84 (108) 94 Trach Collar 35 03/26/18 19:11 85 20 100 Trach Collar 12.0 35 03/26/18 16:00 Room Air 03/26/18 15:25 37.4 83 20 118/77 (91) 98 Trach Collar 35 03/26/18 14:20 84 24 99 Trach Collar 12.0 35 03/26/18 11:37 37.0 94 20 138/84 (102) 97 Trach Collar Physical Exam General Appearance: WD/WN, no apparent distress, + obese Eyes: normal inspection, sclerae normal ENT: hearing grossly normal Neck: trachea midline (with trach in place) Respiratory/Chest: no respiratory distress, no accessory muscle use, + rhonchi (upper airways) Cardiovascular: regular rate, rhythm, no murmur Abdomen: normal bowel sounds, soft, + tenderness (mild in RUQ without guarding or rebound) Extremities: normal inspection Neurologic/Psychiatric: + pertinent finding (awake but keeps eyes closed, odd affect) Skin: normal color, warm/dry Laboratory Results Last 24 Hours Test 03/26/18 11:34 03/26/18 12:04 03/26/18 18:42 03/27/18 00:16 Vancomycin Level Trough 10.5 mcg/ml Bedside Glucose 85 mg/dl 103 mg/dl 187 mg/dl Test 03/27/18 04:11 03/27/18 05:48 03/27/18 08:08 Creatinine 0.80 mg/dl 0.74 mg/dl Est Creatinine Clear Calc Drug Dose 56.3 ml/min 56.5 ml/min Estimated GFR () 80.1 88.1 Estimated GFR (Non- 69.1 76.0 Bedside Glucose 176 mg/dl Sodium Level 140 mmol/L Potassium Level 3.6 mmol/L Chloride Level 105 mmol/L Carbon Dioxide Level 25 mmol/L Anion Gap 10.0 mmol/L Blood Urea Nitrogen 13 mg/dl BUN/Creatinine Ratio 17.4 Random Glucose 123 mg/dl Calcium Level 7.4 mg/dl Assessment and Plan This patient is an 83yo female with a complex medical history, here with acute metabolic and toxic encephalopathy, lactic acidosis, abdominal pain all likely secondary to stercoral colitis. Also with Rabia glabrata UTI and underwent planned tracheostomy for chronic aspiration and respiratory failure. 1. Acute metabolic and toxic encephalopathy -was resolved, however now returned possibly secondary to staph pneumonia, but improving today Suspect that previously, it was toxic from recent pain meds/benzos as well as metabolic from the lactic acidosis and severe constipation. CT head, ammonia, VBG, blood cultures, etc were all normal early on. -Now treating for pneumonia as below 2. New-onset a. fib - converted to NSR and continues to remain NSR despite not being able to take amiodarone for the last couple of days Restart when NG tube placed-oral amiodarone 200mg tid until 03/29 and then reduced to 200 mg once daily Holding lovenox bridge due to trach placement-restart when okay with surgery versus going back to Eliquis -Continue telemetry monitoring -Follow electrolytes and replace as needed 3. Abdominal pain with lactic acidosis - 03/15/[address] without pathology. Lactate now normal CT 03/20/18 normal except for moderate constipation. There has been NO signs of an ischemic bowel process. Gall bladder w/u was negative. She passed a rock-solid stool this admission and despite such still had copious stool on MONTY. Possibly this was secondary to low-grade stercolitis? This certainly could have caused abd pain, lactic acidosis, and confusion. Appreciate gen surg consult. Nothing surgical at this time. Now with some return of abd pain. Not eating for several days, may have constipation again -continue aggressive bowel regimen once enteral feedings begin 4. chronic hypoxic respiratory failure - stable -currently on trach collar. 5. right-sided chest/abd pain at admission - etiology uncertain; ACS was ruled out; PE was ruled out. See #3 above. I believe the abdominal pain was likely due to severe constipation. 6. Rabia glabrata UTI-initial UA and urine culture were negative, repeat on was worse and patient had symptoms of dysuria at that time. Urine culture growing Rabia glabrata -Continue IV caspofungin through 03/27-dc after today -Appreciate infectious disease consultation 7. 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 Dr. Velazquez took her to the OR on 03/23 for tracheostomy Eliquis and lovenox bridge both on hold. -Further trach care as per pulmonary and ENT -Pulmonology to order vent settings for overnight -Possibly will transfer to LTAC in the next 1-2 days if accepted and approved for fresh tracheostomy care 7. COPD -pulmonology said that she never had COPD before, likely just hypoventilation due to plication and steroid-induced myopathy as above-she is now steroid dependent/steroid-induced myopathy; recently weaned to prednisone 30 mg-which was converted to IV SoluMedrol as she was not able to take her morning prednisone dose -Once she is taking p.o. so will revert back to prednisone 30 mg daily and needs to taper down slowly over the next year 8. H/O DVTs - noted; remains on anticoagulation which is on hold for surgery. 9. CKD stage 3 - creatinine stable. 10. Hypothyroidism - compensated; cont IV Synthroid-and revert back to p.o. when start enteral feeds 11. T2DM - controlled. Hemoglobin A1c 7.1% -Continue insulin sliding scale, Accu-Cheks -Basal insulin on hold from home 12. chronic diastolic CHF - compensated 13. right-sided elevated Hemidiaphragm - S/P Plication in the past. 14. elevated lactate level - due to #3 above? resolved. 15. HTN - controlled on no meds for now -Restart clonidine when taking p.o., otherwise as needed IV meds 16. History of orthostatic hypotension-takes midodrine as needed-on hold now 17. RLS-takes Mirapex and gabapentin-both on hold now 18. MRSA pneumonia-with isolated fever on 03/24 Increased secretions coming from trach, CT scan of the chest repeated on 03/24 with secretions and likely atelectasis with mild pleural effusions -Continue broad-spectrum antibiotics with cefepime and vancomycin for now, consider stopping Cefepime tomorrow if no further fevers -Check blood cultures if spikes fever again -Aggressive suctioning 19. Dysphagia-speech evaluation appreciated-remain n.p.o. -GI consultation to discuss PEG tube, GI thinks J-tube wouldbe best given h/o gastroparesis -daughter refusing [employer] for now -Consult General Surgery for J-tube placement 20. Hypokalemia-replaced IV Disposition-remain on telemetry, discussed with case management-will see about if insurance will approve LTAC transfer for her in the next 1-2 days after J- tube placed PT/OT consultations-should begin passive range of motion while in bed as per pulmonology recommendations
[2018-03-27] MEDS: PANTOprazole INJ 40 MG in SYRINGE 0 ML IV SCH (12:27)
--- NOTE | 2018-03-27 13:52 | Gastrointestinal Consultation ---
Gastrointestinal Consultation Date of Consultation: Mar 27, 2018 Attending Physician: Dr. Lockwood Consulting Physician: Dr. Geiger/ROSALINA Amin Reason for Consultation: eval for PEG tube History of Present Illness Patient is a 83 year old female with a history of chronic constipation, GERD, gastritis, gastroparesis and COPD admitted with chest pain and respiratory failure. She is status post tracheostomy placement four days ago. She is having shortness of breath and brie aspiration. She is not tolerating oral intake of nutrition or medications. There was consideration of NG tube placement but patient and family are now desiring PEG tube placement. She denies any abdominal pain or vomiting. Daughter reports she has had good control of her GERD and gastritis symptoms as an outpatient with use of PPI and Carafate. She is currently on antibiotics for sputum positive staph pneumonia. Past Medical/Surgical History Medical Problems: (1) Cervical strain Status: Acute (2) Contusion of multiple sites Status: Acute (3) COPD exacerbation Status: Acute (4) Fall Status: Acute (5) Fall from chair, initial encounter Status: Acute (6) Fatigue Status: Acute (7) Head injury Status: Acute (8) Head injury Status: Acute (9) Hip pain Status: Acute (10) Hypocalcemia Status: Acute (11) Hypoxia Status: Acute (12) Hypoxia Status: Acute (13) Lower extremity edema Status: Acute (14) PNA (pneumonia) Status: Acute (15) Pneumonia Status: Acute (16) Pneumonitis Status: Acute (17) Reactive airway disease Status: Acute (18) Right flank pain Status: Acute (19) Sepsis Status: Acute (20) Sepsis Status: Acute (21) Syncope Status: Acute (22) Traumatic compression fracture of third thoracic vertebra Status: Acute (23) Vaginal yeast infection Status: Acute (24) Weakness Status: Acute (25) Yeast vaginitis Status: Acute Family History Diabetes mellitus FH: cancer FH: gallbladder disease FH: heart disease FH: lung disease Hypertension Kidney disease or stones Social History Alcohol Use: none Drug Use: none Marital Status: Housing Status: lives with family Occupation Status: retired Allergies Coded Allergies: Adhesives (Verified Allergy, Severe, TAPE-REDNESS, BLISTERS, 03/19/18) Pneumococcal Vaccine (Verified Allergy, Severe, SHORTNESS OF BREATH, ) Metronidazole (Verified Allergy, Intermediate, skin rash, 03/19/18) allergic to generic form Phenazopyridine (Verified Allergy, Intermediate, abdominal pain/rash, ) Erythromycin (Verified Allergy, Mild, RASH, 03/19/18) Salicylates (Verified Allergy, Unknown, pt states rash with ASA 325 but not ASA 81mg, 03/19/18) Sulfa Antibiotics (Verified Allergy, Unknown, ON MED LIST, 03/19/18) Tetracycline (Verified Allergy, Unknown, RASH, 03/19/18) Morphine (Verified Adverse Reaction, Intermediate, urinary retention - oral morphine only, 03/19/18) Diltiazem (Verified Adverse Reaction, Mild, FLUID RETENTION, 03/19/18) Metoclopramide (Verified Adverse Reaction, Mild, TREMORS, 03/19/18) Bacitracin (Verified Adverse Reaction, Unknown, "MAKES IT WORSE"-OK IF NOT OTC MEDICATION, 03/19/18) OKAY IF NOT OVER THE COUNTER MEDICATION Current Medications Home Meds and Scripts Medications Dose Route/Sig Max Daily Dose Days Date Category Dose Instructions Systane Ultra (Polyethylene Glycol-Propylene) 1 Renetta Renetta 1 Drops OP QID 03/15/18 Reported Spiriva Respimat (Tiotropium [place]) 1.25 Mcg/Act Aer 2 Puff INH BID 03/15/18 Reported Requip (Ropinirole Hydrochloride) 0.5 Mg Tab 0.5 Mg PO HS 03/15/18 Reported TAKE 2 HR BEFORE HS Mucinex Ext Rel (Guaifenesin) 600 Mg Tab 1,200 Mg PO Q12 PRN 03/15/18 Reported Carafate (Sucralfate) 1 Gm/10 Ml Nicole 10 Ml PO QID 03/15/18 Reported Butal/Asa/Caff (Zhhgngmbwu-Chocyqo-Pxegbsxo) 1 Cap Cap 1 Cap PO Q4 PRN 03/15/18 Reported Gentamicin Sulfate/0.9% S (Gentamicin In Saline) 1 Inj Inj 2 Sprays LATASHA TID 02/19/18 Reported GENTAMYCIN 60MG IN 45 ML NASAL SOLUTION. Basaglar Kwikpen (Insulin Glargine) 100 Unit/Ml Inj 22 Units SQ QAM 02/19/18 Reported K-Tabs (Potassium Chloride) 10 Meq Tab 20 Meq PO DAILY 02/19/18 Reported D3-1000 (Cholecalciferol) 1,000 Unit Tab 1,000 Units PO DAILY 02/19/18 Reported B-12 (Cyanocobalamin) 1,000 Mcg Cap 1,000 Mcg PO QAM 02/19/18 Reported Aldactone (Spironolactone) 25 Mg Tab 25 Mg PO BID 02/05/18 Reported Prednisone 10 Mg Tab 40 Mg PO DAILY 12/22/17 Reported Eliquis (Apixaban) 5 Mg Tab 5 Mg PO BID 12/13/17 Reported Probiotic (Probiotic Product) 1 Tab Tab 1 Tab PO DAILY 12/13/17 Reported Midodrine HCl (Midodrine) 2.5 Mg Tab 2.5 Mg PO TID 12/13/17 Reported FOR B/P between 130-160 Kp Ferrous Sulfate (Ferrous Sulfate) 325 Mg Tab 325 Mg PO DAILY 12/13/17 Reported Levothyroxine Sodium 100 Mcg Tab 100 Mcg PO DAILY 12/13/17 Reported Tylenol Arthritis Ext Rel (Acetaminophen) 650 Mg Cplt 650 Mg PO Q4 PRN 12/13/17 Reported Linzess (Linaclotide) 290 Mcg Cap 290 Mcg PO DAILY PRN 10/02/17 Reported Neurontin (Gabapentin) 300 Mg Cap 300 Mg PO BID 09/19/17 Reported Citalopram Hydrobromide 20 Mg Tab 30 Mg PO DAILY 09/19/17 Reported Nystop (Nystatin (Topical)) 100,000 Unit/Gm Pow 1 Appln TOP TID 07/07/17 Reported Novolog Flexpen (Insulin Aspart) 100 Units/Ml Inj SQ QPM 07/07/17 Reported SLIDING SCALE Voltaren 1% Top Gel (Diclofenac Sodium (Topical)) 1 % Gel 1 Appln TOP QID PRN 07/07/17 Reported Dexilant (Dexlansoprazole) 60 Mg Cap 60 Mg PO QAM 07/07/17 Reported Calcitriol 0.25 Mcg Cap 0.25 Mcg PO DAILY 07/07/17 Reported TAKE WITH CALCIUM Ativan (Lorazepam) 0.5 Mg Tab 0.25-0.5 Mg PO Q6 PRN 04/13/17 Reported Melatonin 10 Mg Tab 10 Mg PO HS 04/13/17 Reported Ultram (Tramadol HCl) 50 Mg Tab 50 Mg PO Q6H PRN 02/09/17 Reported Duoneb (Ipratropium-Albuterol) 3 Ml Nebu 1 Treatment INH QID 10/20/16 Reported Calcium Carbonate 1,250 Mg Tab 2,500 Mg PO HS 02/26/16 Reported Zocor (Simvastatin) 20 Mg Tab 20 Mg PO HS 12/20/15 Reported Riboflavin 400 Mg Tab 400 Mg PO QAM 12/01/15 Reported Review of Systems Constitutional: + weakness, + fatigue Eyes: No problem reported ENT: + see HPI Respiratory: + see HPI Cardiac: + see HPI, No palpitations Abdomen: + see HPI Musculoskeletal: + see HPI Female : No problem reported Psych: No problem reported Skin: No problem reported Physical Exam Date Time Temp Pulse Resp B/P (MAP) Pulse Ox O2 Delivery O2 Flow Rate FiO2 03/27/18 10:57 37.2 84 21 168/88 (114) 97 Trach Collar 10.0 03/27/18 09:00 Trach Collar 10.0 28 03/27/18 07:29 82 98 28 03/27/18 06:50 37.1 89 22 166/102 (123) 98 BiPAP 85 Trach Collar 03/27/18 05:08 94 97 28 03/27/18 04:07 36.9 92 18 163/81 (108) 97 BiPAP Trach Collar 03/27/18 02:03 81 96 28 03/27/18 02:02 81 28 96 BiPAP/CPAP 28 03/27/18 00:00 96 Trach Collar 03/26/18 23:11 37.1 91 18 162/92 (115) 97 Trach Collar 03/26/18 22:00 91 96 28 03/26/18 19:39 37.2 91 18 158/84 (108) 94 Trach Collar 35 03/26/18 19:11 85 20 100 Trach Collar 12.0 35 03/26/18 16:00 Room Air 03/26/18 15:25 37.4 83 20 118/77 (91) 98 Trach Collar 35 03/26/18 14:20 84 24 99 Trach Collar 12.0 35 General Appearance: + mild distress Eyes: EOMI ENT: hearing grossly normal Respiratory/Chest: + decreased breath sounds Cardiovascular: regular rate, rhythm Abdomen: normal bowel sounds, non tender, soft Extremities: + swelling Neurologic/Psych: + pertinent finding (drowsy) Skin: warm/dry Laboratory Results Last 24 Hours Test 03/26/18 18:42 03/27/18 00:16 03/27/18 04:11 03/27/18 05:48 Bedside Glucose 103 mg/dl 187 mg/dl 176 mg/dl Creatinine 0.80 mg/dl Est Creatinine Clear Calc Drug Dose 56.3 ml/min Estimated GFR () 80.1 Estimated GFR (Non- 69.1 Test 03/27/18 08:08 03/27/18 11:28 Sodium Level 140 mmol/L Potassium Level 3.6 mmol/L Chloride Level 105 mmol/L Carbon Dioxide Level 25 mmol/L Anion Gap 10.0 mmol/L Blood Urea Nitrogen 13 mg/dl Creatinine 0.74 mg/dl Est Creatinine Clear Calc Drug Dose 56.5 ml/min Estimated GFR () 88.1 Estimated GFR (Non- 76.0 BUN/Creatinine Ratio 17.4 Random Glucose 123 mg/dl Calcium Level 7.4 mg/dl Bedside Glucose 163 mg/dl Impression Patient is a 83 year old female with GERD, gastritis, gastroparesis, chronic constipation and COPD with respiratory failure being referred for consideration of PEG tube in the setting of feeding difficulty and brie aspiration. Plan Due to the patient's history of gastroparesis (T 1/2 479 minutes), patient should be considered for surgical J-tube placement in lieu of PEG. I did inform the patient and her daughter that placement of any feeding tube will not eliminate her risk of further aspiration as she can continue to aspiration on oral secretions. The patient and daughter verbalized understanding of this risk. Recommend surgical consultation for consideration of J-tube. Thank you for allowing us to participate in the care of this pleasant patient. If you have any questions or concerns, please do not hesitate to contact us. Agree with ROSALINA Amin as above Abd: Soft, tender throughout, Distended, +BS If family and patient wish to pursue enteral feeding, recommend surgically placed J-tube, as a PEG tube will offer no protection against aspiration.
--- NOTE | 2018-03-27 15:12 | Progress Note ---
Subjective Date of Service: Mar 27, 2018. Subjective Pt evaluation today including: physical exam, chart review, lab review pt non verbal on my exam, comfortable. remains on trach collar. tolerating abx. afebrile. Problem List Medical Problems: (1) Cervical strain Status: Acute (2) Contusion of multiple sites Status: Acute (3) COPD exacerbation Status: Acute (4) Fall Status: Acute (5) Fall from chair, initial encounter Status: Acute (6) Fatigue Status: Acute (7) Head injury Status: Acute (8) Head injury Status: Acute (9) Hip pain Status: Acute (10) Hypocalcemia Status: Acute (11) Hypoxia Status: Acute (12) Hypoxia Status: Acute (13) Lower extremity edema Status: Acute (14) PNA (pneumonia) Status: Acute (15) Pneumonia Status: Acute (16) Pneumonitis Status: Acute (17) Reactive airway disease Status: Acute (18) Right flank pain Status: Acute (19) Sepsis Status: Acute (20) Sepsis Status: Acute (21) Syncope Status: Acute (22) Traumatic compression fracture of third thoracic vertebra Status: Acute (23) Vaginal yeast infection Status: Acute (24) Weakness Status: Acute (25) Yeast vaginitis Status: Acute Objective Vital Signs Date Time Temp Pulse Resp B/P (MAP) Pulse Ox O2 Delivery O2 Flow Rate FiO2 03/27/18 15:04 37.0 97 20 158/79 (105) 97 Trach Collar 10.0 28 03/27/18 14:12 94 22 96 BiPAP/CPAP 03/27/18 10:57 37.2 84 21 168/88 (114) 97 Trach Collar 10.0 03/27/18 09:00 Trach Collar 10.0 28 03/27/18 07:29 82 98 28 03/27/18 06:50 37.1 89 22 166/102 (123) 98 BiPAP 85 Trach Collar 03/27/18 05:08 94 97 28 03/27/18 04:07 36.9 92 18 163/81 (108) 97 BiPAP Trach Collar 03/27/18 02:03 81 96 28 03/27/18 02:02 81 28 96 BiPAP/CPAP 28 03/27/18 00:00 96 Trach Collar 03/26/18 23:11 37.1 91 18 162/92 (115) 97 Trach Collar 03/26/18 22:00 91 96 28 03/26/18 19:39 37.2 91 18 158/84 (108) 94 Trach Collar 35 03/26/18 19:11 85 20 100 Trach Collar 12.0 35 03/26/18 16:00 Room Air 03/26/18 15:25 37.4 83 20 118/77 (91) 98 Trach Collar 35 Physical Exam General Appearance: WD/WN Neck: supple Respiratory/Chest: no respiratory distress, + decreased breath sounds Cardiovascular: regular rate, rhythm, no edema Abdomen: soft Extremities: non-tender Skin: normal color, + pertinent finding (scattered ecchymosis lower ext) Laboratory Results Item Value Date Time Gram Stain - Final Complete 03/24/18 1425 Sputum Trach. Tube Suction Urine Culture - Final Complete 03/20/18 0000 Urine,Catheterized Rabia Glabrata (T. Glabrata) Urine Culture - Final Complete 03/15/18 1510 Urine,Catheterized NO GROWTH - LESS THAN 1,000 COLONIES/ML Blood Culture - Final Complete 03/15/18 1447 Blood NO GROWTH Blood Culture - Final Complete 03/15/18 1459 Blood NO GROWTH Last 24 Hours Test 03/26/18 18:42 03/27/18 00:16 03/27/18 04:11 03/27/18 05:48 Bedside Glucose 103 mg/dl 187 mg/dl 176 mg/dl Creatinine 0.80 mg/dl Est Creatinine Clear Calc Drug Dose 56.3 ml/min Estimated GFR () 80.1 Estimated GFR (Non- 69.1 Test 03/27/18 08:08 03/27/18 11:28 Sodium Level 140 mmol/L Potassium Level 3.6 mmol/L Chloride Level 105 mmol/L Carbon Dioxide Level 25 mmol/L Anion Gap 10.0 mmol/L Blood Urea Nitrogen 13 mg/dl Creatinine 0.74 mg/dl Est Creatinine Clear Calc Drug Dose 56.5 ml/min Estimated GFR () 88.1 Estimated GFR (Non- 76.0 BUN/Creatinine Ratio 17.4 Random Glucose 123 mg/dl Calcium Level 7.4 mg/dl Bedside Glucose 163 mg/dl Assessment and Plan (1) UTI (urinary tract infection) Assessment & Plan: continue caspo as planned (2) MRSA pneumonia Continued [facility] stay due to: voiding difficulties, ambulation difficulties, multiple IV medications needed, other (need for trach) Discharge planning: uncertain
--- NOTE | 2018-03-27 17:10 | Pulmonology Progress Note ---
Pulmonary Progress Note Date of Service Mar 27, 2018. Attending Dr. Anirudh Baum The patient complains of diffuse pain in the abdomen and the chest, she appears although without distress but somewhat uncomfortable according to her. She denies any nausea, no shortness of breath and she is on trach collar. No events occurred overnight. She has been evaluated by GI and was proposed to have J-tube instead of G-tube due to gastroparesis. Objective Patient was stable saturations and notable tracheal aspirate on tracheal suctioning: Was asleep when I walked in the room showing no signs of respiratory insufficiency PmHx: Pulmonary embolism, sleep apnea/OHV, COPD, oxygen dependent 2-5L, diaphragmatic insufficiency/status post fundoplication, steroid-induced myopathy , orthostatic hypotension, hypertension, sclerotic aortic valve, chronic lymphedema, paroxysmal atrial fibrillation, chronic shortness of breath, C diff positive, recurrent UTIs Vital Signs/Physical Exam: SaO2: 90-97% on Venti-mask 21-35% Tmax: 37.2 Neck: Fresh tracheostomy minimal bleeding no signs of breakdown, mild sub-q fremitus Tracheostomy: Mucus secretions noted on tracheostomy suctioning Respiratory: Rhonchi appreciated right lower lobe Cardiac: S1-S2 Abdomen: Positive bowel sounds soft non-tender to deep palpation Labs: Procalcitonin: 0.5 CRP: 0.52 elevated Lactic acid: 1.0 WBC: 6K CT of the abdomen 03/21/2018: Shows continuation bilateral right greater than left atelectasis, no acute changes Urine: Rabia Glabrata Tracheal Aspirate: Staphylococcus Aureus Current Pulmonary Medications/antibiotics/antifungals: 1. Methylprednisolone 40 mg IV daily 2. Caspofungin 50 mg Q 24 (Day#: 3) 3. Spiriva 2 puffs b.i.d. 4. Pantoprazole 40 mg q.day 5. Duo nebs q.6 hours 6. Vancomycin (Day#: 2) 7. Cefepime (Day#: 2) Microbiology URINE: (07/24/15) Escherichia coli (09/01/15) Enterococcus faecalis (12/08/15) Lactobacillus species (11/25/16) Citrobacter species (07/07/17) Escherichia coli (07/24/17) Escherichia coli (03/20/18) Rabia Glabrata Respiratory Bronchial washing (06/29/2010) MRSA Bronchial washing left upper lobe (01/25/16) Fungal Species Right lower lobe bronchial washing (06/30/16) Fungal Species Bronchial washing right middle lobe (11/28/16) MRSA Bronchial washing right middle (01/15/17) Fungal Species Bronchial washing right and left lower lobe (10/09/2017) Bordetella Bronchiseptica Tracheal Aspirate (03/24/18): Staphylococcus Aureus Blood (04/24/16) Propionibacterium acnes Skin (04/17/17) right lower extremity: Pseudomonas aeruginosa, Enterococcus faecalis Stool C. difficile testing for 06/07/2018: Positive Physical exam on 03/26/2018 showed low-grade temperature yesterday, S1-S2 regular rate and rhythm, she does have rhonchi bilaterally, copious amount of secretions from the tracheostomy tube, edema in the periphery, abdomen is benign. Physical exam on 03/27/2018 showed no fever, vital signs are stable, no stridor, distant rhonchi bilaterally, remains with moderate amount of secretions, abdomen is nontender but soft, vague pain mainly on the left and right lower quadrant, minimal edema in the periphery. Assessment & Plan 1. Morbid obesity with BMI more than 30. 2. Obstructive sleep apnea with CO2 retention. 3. COPD with cor pulmonale. 4. Acute on chronic respiratory failure, currently with tracheostomy tube. 5. A. fib with RVR. 6. Aspiration pneumonitis. 7. Subcu emphysema, iatrogenic, resolving. 8. Mild CHF with bilateral pleural effusion. 9. chronic hypercapnic respiratory failure. 10. Diaphragm dysfunction status post diaphragm plication. Plan: 1. Continue current antibiotic and downgrade them later if the patient is not febrile. Patient has no leukocytosis. 2. The patient is currently on Solu-Medrol 30 mg daily, it is a short acting steroids, I will change it to 20 mg IV every 12 hours instead. 3. Appreciate GI input, the patient would benefit from feeding tube, plan for J -tube rather than NG tube. 4. Discontinue Spiriva, the patient has a trach tube in place and will continue with short acting beta agonist on scheduled dose. 5. The patient failed swallow eval. Thank you, will follow. Data Medications: Current Inpatient Medications Medications (Trade) Dose Ordered Sig/Natasha Route Start Time Stop Time Status Last Admin Dose Admin Acetaminophen (Tylenol Tab) 650 mg Q4H PRN PO 03/15/18 18:30 04/14/18 18:29 03/19/18 20:01 650 MG Al Hydrox/Mg Hydrox/Simethicone (Maalox Max Susp) 15 ml Q4H PRN PO 03/15/18 18:30 04/14/18 18:29 Magnesium Hydroxide (Milk Of Magnesia Susp) 30 ml Q12H PRN PO 03/15/18 18:30 04/14/18 18:29 Ondansetron HCl (Zofran Inj) 4 mg Q6H PRN IV 03/15/18 18:30 04/14/18 18:29 Albuterol Sulfate (Ventolin 0.083% 2.5MG/3ML Neb) 2.5 mg Q4H PRN INH 03/15/18 18:30 04/14/18 18:29 Albuterol/ Ipratropium (Duoneb) 3 ml Q6R NEB 03/15/18 21:00 04/14/18 20:59 03/27/18 14:10 3 ML Butalbital/ Aspirin/Caffeine (Fiorinal Tab/ CAP) 1 tab Q4 PRN PO 03/15/18 20:00 04/14/18 19:59 03/17/18 08:17 1 TAB Calcitriol (Rocaltrol Cap) 0.25 mcg DAILY PO 03/16/18 09:00 04/15/18 08:59 03/24/18 11:37 0.25 MCG Cholecalciferol (Vitamin D Tab) 1,000 inter.unit DAILY PO 03/16/18 09:00 04/15/18 08:59 03/24/18 11:38 1,000 INTER.UNIT Citalopram Hydrobromide (celeXA TAB) 30 mg DAILY PO 03/16/18 09:00 04/15/18 08:59 03/24/18 11:35 30 MG Diclofenac Sodium (Voltaren 1% Top Gel) 1 appln QID PRN EXT 03/15/18 19:30 04/14/18 19:29 03/18/18 08:30 1 APPLN Gabapentin (Neurontin Cap) 300 mg BID PO 03/15/18 21:00 04/14/18 20:59 03/24/18 11:36 300 MG Levothyroxine Sodium (Synthroid Tab) 100 mcg DAILYBB PO 03/16/18 06:00 04/15/18 06:59 Future Hold 03/23/18 05:55 100 MCG Lorazepam (Ativan Tab) 0.25 mg for mild anxiety/ sl... Q6 PRN PO 03/15/18 18:30 04/14/18 18:29 Future Hold 03/18/18 21:12 0.25 MG Nystatin (Mycostatin Powder) 1 appln TID EXT 03/15/18 21:00 04/14/18 20:59 03/27/18 14:02 1 APPLN Ropinirole HCl (Requip Tab) 0.5 mg HS PO 03/15/18 21:00 04/14/18 20:59 03/22/18 21:06 0.5 MG Simvastatin (Zocor Tab) 20 mg HS PO 03/15/18 21:00 04/14/18 20:59 03/22/18 21:06 20 MG Sucralfate (Carafate Susp) 1 gm QID PO 03/15/18 21:00 04/14/18 20:59 03/24/18 12:22 1 GM Tramadol HCl (Ultram Tab) 50 mg Q6H PRN PO 03/15/18 18:30 04/14/18 18:29 Future Hold 03/22/18 11:41 50 MG Apixaban (Eliquis Tab) 5 mg BID PO 03/15/18 21:00 04/14/18 20:59 Future Hold 03/19/18 08:54 5 MG Calcium Carbonate (oS-Misael 500 TAB) 2,500 mg HS PO 03/15/18 21:00 04/14/18 20:59 03/22/18 21:07 2,500 MG Cyanocobalamin (Vitamin B-12 Tab) 1,000 mcg QAM PO 03/16/18 09:00 04/15/18 08:59 03/24/18 11:39 1,000 MCG Pantoprazole Sodium (Protonix Tab) 40 mg QAM PO 03/16/18 09:00 04/15/18 08:59 Future Hold 03/24/18 11:37 40 MG Ferrous Sulfate (Feosol Tab) 325 mg DAILY PO 03/16/18 09:00 04/15/18 08:59 03/24/18 11:36 325 MG Miscellaneous Information (Order Awaiting Action) 1 ea QS N/A 03/16/18 00:00 04/15/18 00:00 03/18/18 18:49 1 EA Potassium Chloride (Klor-Con M10) 20 meq DAILY PO 03/16/18 09:00 04/15/18 08:59 Future Hold 03/24/18 11:36 20 MEQ Glucose (Glucose 40% Gel) 15-30 GRAMS 15 GRAMS... UD PRN PO 03/15/18 19:00 04/14/18 18:59 Glucose (Glucose Chew Tab) 4-8 Tablets 4 Tabl... UD PRN PO 03/15/18 19:00 04/14/18 18:59 Dextrose (Dextrose 50% 50ML Syringe) 25-50ML 25ML FOR ... UD PRN IV 03/15/18 19:00 04/14/18 18:59 Glucagon (Glucagon Inj) 1 mg UD PRN SQ 03/15/18 19:00 04/14/18 18:59 Carbohydrates (Carbohydrates For Hypoglycemia) 15-30 GRAMS 15 grams if BSG 54-69... UD PRN PO 03/15/18 19:00 04/14/18 18:59 Clonidine HCl (Catapres Tab) 0.1 mg QAM PO 03/18/18 09:00 04/17/18 08:59 03/24/18 11:35 0.1 MG Heparin Sodium (Porcine) (Heparin 10 Unit/ ml 5 ml Flush) 5 ml PRN PRN FLUSH 03/20/18 00:30 04/19/18 00:29 Enoxaparin Sodium (Lovenox Inj) 80 mg Q12 SQ 03/20/18 16:00 04/19/18 20:59 Future Hold 03/22/18 08:22 80 MG Amiodarone HCl (Cordarone Tab) 200 mg TID PO 03/20/18 21:00 03/28/18 23:59 03/24/18 15:04 200 MG Amiodarone HCl (Cordarone Tab) 200 mg DAILY PO 03/29/18 09:00 04/28/18 08:59 Non-Formulary Medication (Non-Formulary Patient'S Own Med) 1 ea DAILY PO 03/22/18 09:00 04/21/18 08:59 03/24/18 11:37 1 EA Prednisone (PredniSONE TAB) 30 mg DAILY PO 03/22/18 09:00 04/17/18 08:59 Future hold 03/22/18 10:45 30 MG Hydromorphone HCl (Dilaudid Inj) 0.25 mg Q1H PRN IV 03/23/18 11:30 04/06/18 11:29 03/25/18 20:03 0.25 MG Caspofungin 50 mg/ Sodium Chloride 260 ml @ 250 mls/hr Q24H IV 03/24/18 18:00 03/29/18 18:14 03/26/18 18:36 250 MLS/HR Vancomycin HCl (Consult) 1 ea UD PRN N/A 03/24/18 11:00 04/23/18 10:59 Cefepime HCl 2000 mg/Syringe 20 ml @ 5 mls/min Q12H IV 03/24/18 12:00 03/31/18 11:59 03/27/18 12:27 5 MLS/MIN Polyethylene (Miralax Powder Packet) 17 gm DAILY PO 03/25/18 09:00 04/14/18 18:29 Senna (Senokot Tab) 17.2 mg HS PO 03/24/18 21:00 04/23/18 20:59 Acetaminophen 100 ml @ 400 mls/hr Q8H PRN IV 03/25/18 15:45 04/24/18 15:44 03/26/18 21:52 400 MLS/HR Insulin Aspart (novoLOG ASPART) SLIDING SCALE If C... Q6 SC 03/26/18 00:00 04/25/18 00:00 Potassium Chloride/Dextrose/ Sod Cl 1,000 ml @ 75 mls/hr [id number] IV 03/26/18 10:00 04/25/18 09:59 03/27/18 00:06 75 MLS/HR Vancomycin HCl 1250 mg/Sodium Chloride 275 ml @ 125 mls/hr Q18H IV 03/27/18 06:00 04/03/18 05:59 03/27/18 05:40 125 MLS/HR Levothyroxine Sodium 50 mcg/ Syringe 2.5 ml @ 2 mls/min DAILY@09 IV 03/27/18 09:00 04/26/18 08:59 03/27/18 09:11 2 MLS/MIN Pantoprazole Sodium 40 mg/ Syringe 10 ml @ 5 mls/min DAILY@11 IV 03/27/18 11:00 04/26/18 10:59 03/27/18 12:27 5 MLS/MIN Methylprednisolone Sodium Succinate 20 mg/Syringe 0.32 ml @ 1.5 mls/min Q12 IV 03/27/18 21:00 04/26/18 08:59 UNV I & O: 24-Hour Column 03/28/18 08:00 Intake Total 753 ml Output Total 650 ml Balance 103 ml Vital Signs: Date Time Temp Pulse Resp B/P (MAP) Pulse Ox O2 Delivery O2 Flow Rate FiO2 03/27/18 15:04 37.0 97 20 158/79 (105) 97 Trach Collar 10.0 28 03/27/18 14:12 94 22 96 BiPAP/CPAP 28 03/27/18 10:57 37.2 84 21 168/88 (114) 97 Trach Collar 10.0 03/27/18 09:00 Trach Collar 10.0 28 03/27/18 07:29 82 98 28 03/27/18 06:50 37.1 89 22 166/102 (123) 98 BiPAP 85 Trach Collar 03/27/18 05:08 94 97 28 03/27/18 04:07 36.9 92 18 163/81 (108) 97 BiPAP Trach Collar 03/27/18 02:03 81 96 28 03/27/18 02:02 81 28 96 BiPAP/CPAP 28 03/27/18 00:00 96 Trach Collar 03/26/18 23:11 37.1 91 18 162/92 (115) 97 Trach Collar 03/26/18 22:00 91 96 28 03/26/18 19:39 37.2 91 18 158/84 (108) 94 Trach Collar 35 03/26/18 19:11 85 20 100 Trach Collar 12.0 35 Laboratory Results: Last 24 Hours Test 03/26/18 18:42 03/27/18 00:16 03/27/18 04:11 03/27/18 05:48 Bedside Glucose 103 mg/dl 187 mg/dl 176 mg/dl Creatinine 0.80 mg/dl Est Creatinine Clear Calc Drug Dose 56.3 ml/min Estimated GFR () 80.1 Estimated GFR (Non- 69.1 Test 03/27/18 08:08 03/27/18 11:28 Sodium Level 140 mmol/L Potassium Level 3.6 mmol/L Chloride Level 105 mmol/L Carbon Dioxide Level 25 mmol/L Anion Gap 10.0 mmol/L Blood Urea Nitrogen 13 mg/dl Creatinine 0.74 mg/dl Est Creatinine Clear Calc Drug Dose 56.5 ml/min Estimated GFR () 88.1 Estimated GFR (Non- 76.0 BUN/Creatinine Ratio 17.4 Random Glucose 123 mg/dl Calcium Level 7.4 mg/dl Bedside Glucose 163 mg/dl
[2018-03-27] MEDS: HYDROmorphone INJ 0.5 MG/0.5 ML SYR IV PRN (17:27)
[2018-03-27] MEDS: CASPOFUNGIN INJ 50 MG in SODIUM CHLORIDE 0.9% 250ML 250 ML IV SCH (17:27)
[2018-03-27] MEDS ORDERED: LORAZEPAM INJ 0.5 MG in SYRINGE 0.75 ML IV PRN (18:45)
[2018-03-27] MEDS: METHYLPREDNISOLONE IV 20 MG in SYRINGE 0 ML IV SCH (21:26)
[2018-03-28] VITALS (12 sets, daily range): BP systolic 149–161; BP diastolic 82–91; PULSE 67–98; TEMP 36.6–37.1; O2SAT 91–100
[2018-03-28] MEDS: VANCOMYCIN IV 1,250 MG in SODIUM CHLORIDE 0.9% 250ML 250 ML IV SCH ×2 (00:28→18:59)
[2018-03-28] MEDS: HYDROmorphone INJ 0.5 MG/0.5 ML SYR IV PRN ×5 (00:29→19:52)
[2018-03-28] MEDS: CEFEPIME IV 2,000 MG in SYRINGE 7.5 ML IV SCH ×2 (00:29→12:15)
[2018-03-28] MEDS: ALBUT/IPRATROP 3MG/0.5MG NEB 3 ML VIAL NEB SCH ×4 (01:47→20:00)
[2018-03-28] MEDS: INSULIN ASPART 100 UNITS/ML 3 ML PEN SC SCH ×4 (06:07→19:01)
[2018-03-28 06:59] LABS: HEMATOCRIT 31.5 % (37-47); HEMOGLOBIN 10.1 g/dL (12.0-16.0); IG# 0.12 K/uL (0.00-0.02); LYMPH % 8.7 %; LYMPH ABS # 0.51 K/uL (1.2-3.4); MEAN CELL VOLUME 94.6 fL (80-100); MEAN CORPUSCULAR HEMOGLOBIN 30.3 pg (25-34); MEAN CORPUSCULAR HGB CONC 32.1 g/dl (32-36); MEAN PLATELET VOLUME 10.1 fL (7.4-10.4); MONO % 7.5 %; MONO ABS # 0.44 K/uL (0.11-0.59); NEUT % 81.7 %; NEUT ABS # 4.76 K/uL (1.4-6.5); PLATELET COUNT 174 K/uL (130-400); RED CELL DISTRIBUTION WIDTH CV 16.4 % (11.5-14.5); RED CELL DISTRIBUTION WIDTH SD 56.4 fL (36.4-46.3); WHITE BLOOD COUNT 5.83 K/uL (4.8-10.8)
[2018-03-28 07:35] LABS: CALCIUM 7.2 mg/dl (8.5-10.1); CREATININE 0.75 mg/dl (0.60-1.20); POTASSIUM 3.8 mmol/L (3.5-5.1)
[2018-03-28] MEDS: LEVOTHYROXINE SODIUM INJ 50 MCG in SYRINGE 0 ML IV SCH (08:29)
[2018-03-28] MEDS: METHYLPREDNISOLONE IV 20 MG in SYRINGE 0 ML IV SCH ×2 (08:29→21:44)
[2018-03-28] MEDS: NYSTATIN POWDER 15GM BTL EXT SCH ×3 (08:29→21:45)
[2018-03-28] MEDS: ACETAMINOPHEN IV 1000MG/100ML IV PRN (08:33)
[2018-03-28] MEDS: D5W AND 1/2NSS + 20MEQ KCL 1,000 ML IV SCH ×2 (08:49→21:44)
--- NOTE | 2018-03-28 11:45 | DIAGNOSTIC IMAGING REPORT ---
KUB HISTORY: Acute abdominal distention with generalized abdominal pain abdominal distention, NPO, r/o SBO COMPARISON: CT abdomen and pelvis 03/21/2018 FINDINGS: Oral contrast is noted within the large bowel. There is mild gaseous distention of what appears to be both small and large bowel evidence of small bowel obstruction. No definite pneumatosis or pneumoperitoneum. Surgical clips project over the right upper abdomen medially. Thoracolumbar spinal fusion hardware is noted. No definite urolith. IMPRESSION: Gaseous distention of both large and small bowel suggests ileus with oral contrast within the large bowel, presumably from enteric contrast administered on 03/21/2018. Electronically signed by: Rey Campos M.D. 03/28/2018 11:44 AM Dictated Date/Time: 03/28/2018 11:40 AM
[2018-03-28] MEDS: PANTOprazole INJ 40 MG in SYRINGE 0 ML IV SCH (12:15)
--- NOTE | 2018-03-28 14:32 | Medical Consult ---
Consultation Date of Consultation: Mar 28, 2018. Attending Physician: Bradley Mann MD History of Present Illness 83 y/o female s/p tracheostomy for respiratory with history of COPD, gastroparesis we were asked to see for J-tube placement. GI was consulted for PEG tube placement given a lack of po intake, difficulty with meds, aspiration and the patient/family wishes not to have NG tube. GI recommended surgery evaluate her for J-tube given history of gastroparesis. Past Medical/Surgical History Medical Problems: (1) Cervical strain Status: Acute (2) Contusion of multiple sites Status: Acute (3) COPD exacerbation Status: Acute (4) Fall Status: Acute (5) Fall from chair, initial encounter Status: Acute (6) Fatigue Status: Acute (7) Head injury Status: Acute (8) Head injury Status: Acute (9) Hip pain Status: Acute (10) Hypocalcemia Status: Acute (11) Hypoxia Status: Acute (12) Hypoxia Status: Acute (13) Lower extremity edema Status: Acute (14) PNA (pneumonia) Status: Acute (15) Pneumonia Status: Acute (16) Pneumonitis Status: Acute (17) Reactive airway disease Status: Acute (18) Right flank pain Status: Acute (19) Sepsis Status: Acute (20) Sepsis Status: Acute (21) Syncope Status: Acute (22) Traumatic compression fracture of third thoracic vertebra Status: Acute (23) Vaginal yeast infection Status: Acute (24) Weakness Status: Acute (25) Yeast vaginitis Status: Acute Family History Diabetes mellitus FH: cancer FH: gallbladder disease FH: heart disease FH: lung disease Hypertension Kidney disease or stones Social History Drug Use: none Marital Status: Housing Status: lives with family Occupation Status: retired Allergies Coded Allergies: Adhesives (Verified Allergy, Severe, TAPE-REDNESS, BLISTERS, 03/19/18) Pneumococcal Vaccine (Verified Allergy, Severe, SHORTNESS OF BREATH, ) Metronidazole (Verified Allergy, Intermediate, skin rash, 03/19/18) allergic to generic form Phenazopyridine (Verified Allergy, Intermediate, abdominal pain/rash, ) Erythromycin (Verified Allergy, Mild, RASH, 03/19/18) Salicylates (Verified Allergy, Unknown, pt states rash with ASA 325 but not ASA 81mg, 03/19/18) Sulfa Antibiotics (Verified Allergy, Unknown, ON MED LIST, 03/19/18) Tetracycline (Verified Allergy, Unknown, RASH, 03/19/18) Morphine (Verified Adverse Reaction, Intermediate, urinary retention - oral morphine only, 03/19/18) Diltiazem (Verified Adverse Reaction, Mild, FLUID RETENTION, 03/19/18) Metoclopramide (Verified Adverse Reaction, Mild, TREMORS, 03/19/18) Bacitracin (Verified Adverse Reaction, Unknown, "MAKES IT WORSE"-OK IF NOT OTC MEDICATION, 03/19/18) OKAY IF NOT OVER THE COUNTER MEDICATION Current Inpatient Medications Current Inpatient Medications Medications (Trade) Dose Ordered Sig/Natasha Route Start Time Stop Time Status Last Admin Dose Admin Acetaminophen (Tylenol Tab) 650 mg Q4H PRN PO 03/15/18 18:30 04/14/18 18:29 Future Hold 03/19/18 20:01 650 MG Al Hydrox/Mg Hydrox/Simethicone (Maalox Max Susp) 15 ml Q4H PRN PO 03/15/18 18:30 04/14/18 18:29 Magnesium Hydroxide (Milk Of Magnesia Susp) 30 ml Q12H PRN PO 03/15/18 18:30 04/14/18 18:29 Ondansetron HCl (Zofran Inj) 4 mg Q6H PRN IV 03/15/18 18:30 04/14/18 18:29 Albuterol Sulfate (Ventolin 0.083% 2.5MG/3ML Neb) 2.5 mg Q4H PRN INH 03/15/18 18:30 04/14/18 18:29 Albuterol/ Ipratropium (Duoneb) 3 ml Q6R NEB 03/15/18 21:00 04/14/18 20:59 03/28/18 07:20 3 ML Butalbital/ Aspirin/Caffeine (Fiorinal Tab/ CAP) 1 tab Q4 PRN PO 03/15/18 20:00 04/14/18 19:59 Future Hold 03/17/18 08:17 1 TAB Calcitriol (Rocaltrol Cap) 0.25 mcg DAILY PO 03/16/18 09:00 04/15/18 08:59 Future Hold 03/24/18 11:37 0.25 MCG Cholecalciferol (Vitamin D Tab) 1,000 inter.unit DAILY PO 03/16/18 09:00 04/15/18 08:59 Future Hold 03/24/18 11:38 1,000 INTER.UNIT Citalopram Hydrobromide (celeXA TAB) 30 mg DAILY PO 03/16/18 09:00 04/15/18 08:59 Future Hold 03/24/18 11:35 30 MG Diclofenac Sodium (Voltaren 1% Top Gel) 1 appln QID PRN EXT 03/15/18 19:30 04/14/18 19:29 03/18/18 08:30 1 APPLN Gabapentin (Neurontin Cap) 300 mg BID PO 03/15/18 21:00 04/14/18 20:59 Future Hold 03/24/18 11:36 300 MG Levothyroxine Sodium (Synthroid Tab) 100 mcg DAILYBB PO 03/16/18 06:00 04/15/18 06:59 Future Hold 03/23/18 05:55 100 MCG Lorazepam (Ativan Tab) 0.25 mg for mild anxiety/ sl... Q6 PRN PO 03/15/18 18:30 04/14/18 18:29 Future Hold 03/18/18 21:12 0.25 MG Nystatin (Mycostatin Powder) 1 appln TID EXT 03/15/18 21:00 04/14/18 20:59 03/28/18 08:29 1 APPLN Ropinirole HCl (Requip Tab) 0.5 mg HS PO 03/15/18 21:00 04/14/18 20:59 Future Hold 03/22/18 21:06 0.5 MG Simvastatin (Zocor Tab) 20 mg HS PO 03/15/18 21:00 04/14/18 20:59 Future Hold 03/22/18 21:06 20 MG Sucralfate (Carafate Susp) 1 gm QID PO 03/15/18 21:00 04/14/18 20:59 Future Hold 03/24/18 12:22 1 GM Tramadol HCl (Ultram Tab) 50 mg Q6H PRN PO 03/15/18 18:30 04/14/18 18:29 Future Hold 03/22/18 11:41 50 MG Apixaban (Eliquis Tab) 5 mg BID PO 03/15/18 21:00 04/14/18 20:59 Future Hold 03/19/18 08:54 5 MG Calcium Carbonate (oS-Misael 500 TAB) 2,500 mg HS PO 03/15/18 21:00 04/14/18 20:59 Future Hold 03/22/18 21:07 2,500 MG Cyanocobalamin (Vitamin B-12 Tab) 1,000 mcg QAM PO 03/16/18 09:00 04/15/18 08:59 Future Hold 03/24/18 11:39 1,000 MCG Pantoprazole Sodium (Protonix Tab) 40 mg QAM PO 03/16/18 09:00 04/15/18 08:59 Future Hold 03/24/18 11:37 40 MG Ferrous Sulfate (Feosol Tab) 325 mg DAILY PO 03/16/18 09:00 04/15/18 08:59 Future Hold 03/24/18 11:36 325 MG Miscellaneous Information (Order Awaiting Action) 1 ea QS N/A 03/16/18 00:00 04/15/18 00:00 03/18/18 18:49 1 EA Potassium Chloride (Klor-Con M10) 20 meq DAILY PO 03/16/18 09:00 04/15/18 08:59 Future Hold 03/24/18 11:36 20 MEQ Glucose (Glucose 40% Gel) 15-30 GRAMS 15 GRAMS... UD PRN PO 03/15/18 19:00 04/14/18 18:59 Glucose (Glucose Chew Tab) 4-8 Tablets 4 Tabl... UD PRN PO 03/15/18 19:00 04/14/18 18:59 Dextrose (Dextrose 50% 50ML Syringe) 25-50ML 25ML FOR ... UD PRN IV 03/15/18 19:00 04/14/18 18:59 Glucagon (Glucagon Inj) 1 mg UD PRN SQ 03/15/18 19:00 04/14/18 18:59 Carbohydrates (Carbohydrates For Hypoglycemia) 15-30 GRAMS 15 grams if BSG 54-69... UD PRN PO 03/15/18 19:00 04/14/18 18:59 Clonidine HCl (Catapres Tab) 0.1 mg QAM PO 03/18/18 09:00 04/17/18 08:59 Future Hold 03/24/18 11:35 0.1 MG Heparin Sodium (Porcine) (Heparin 10 Unit/ ml 5 ml Flush) 5 ml PRN PRN FLUSH 03/20/18 00:30 04/19/18 00:29 Enoxaparin Sodium (Lovenox Inj) 80 mg Q12 SQ 03/20/18 16:00 04/19/18 20:59 Future Hold 03/22/18 08:22 80 MG Amiodarone HCl (Cordarone Tab) 200 mg TID PO 03/20/18 21:00 03/28/18 23:59 Future Hold 03/24/18 15:04 200 MG Amiodarone HCl (Cordarone Tab) 200 mg DAILY PO 03/29/18 09:00 04/28/18 08:59 Non-Formulary Medication (Non-Formulary Patient'S Own Med) 1 ea DAILY PO 03/22/18 09:00 04/21/18 08:59 03/24/18 11:37 1 EA Prednisone (PredniSONE TAB) 30 mg DAILY PO 03/22/18 09:00 04/17/18 08:59 Future Hold 03/22/18 10:45 30 MG Hydromorphone HCl (Dilaudid Inj) 0.25 mg Q1H PRN IV 03/23/18 11:30 04/06/18 11:29 03/28/18 08:35 0.25 MG Vancomycin HCl (Consult) 1 ea UD PRN N/A 03/24/18 11:00 04/23/18 10:59 Cefepime HCl 2000 mg/Syringe 20 ml @ 5 mls/min Q12H IV 03/24/18 12:00 03/31/18 11:59 03/28/18 12:15 5 MLS/MIN Polyethylene (Miralax Powder Packet) 17 gm DAILY PO 03/25/18 09:00 04/14/18 18:29 Future Hold Senna (Senokot Tab) 17.2 mg HS PO 03/24/18 21:00 04/23/18 20:59 Future Hold Acetaminophen 100 ml @ 400 mls/hr Q8H PRN IV 03/25/18 15:45 04/24/18 15:44 03/28/18 08:33 400 MLS/HR Insulin Aspart (novoLOG ASPART) SLIDING SCALE If C... Q6 SC 03/26/18 00:00 04/25/18 00:00 03/28/18 12:17 1 UNITS Potassium Chloride/Dextrose/ Sod Cl 1,000 ml @ 75 mls/hr [id number] IV 03/26/18 10:00 04/25/18 09:59 03/28/18 08:49 75 MLS/HR Vancomycin HCl 1250 mg/Sodium Chloride 275 ml @ 125 mls/hr Q18H IV 03/27/18 06:00 04/03/18 05:59 03/28/18 00:28 125 MLS/HR Levothyroxine Sodium 50 mcg/ Syringe 2.5 ml @ 2 mls/min DAILY@09 IV 03/27/18 09:00 04/26/18 08:59 03/28/18 08:29 2 MLS/MIN Pantoprazole Sodium 40 mg/ Syringe 10 ml @ 5 mls/min DAILY@11 IV 03/27/18 11:00 04/26/18 10:59 03/28/18 12:15 5 MLS/MIN Methylprednisolone Sodium Succinate 20 mg/Syringe 0.32 ml @ 1.5 mls/min Q12H IV 03/27/18 21:00 04/26/18 20:59 03/28/18 08:29 1.5 MLS/MIN Lorazepam (Ativan Inj) 0.5 mg Q6H PRN IV 03/27/18 18:15 04/26/18 18:14 Lorazepam 0.5 mg/ Syringe 1 ml @ 1 mls/min Q6H PRN IV 03/27/18 18:45 04/26/18 18:44 Physical Exam Date Time Temp Pulse Resp B/P (MAP) Pulse Ox O2 Delivery O2 Flow Rate FiO2 03/28/18 11:04 36.8 67 20 157/82 (107) 100 Room Air 03/28/18 08:00 Trach Collar 28 03/28/18 07:40 73 19 98 BiPAP/CPAP 28 03/28/18 06:58 36.9 76 20 151/85 (107) 100 Room Air 03/28/18 05:30 92 97 28 03/28/18 03:14 36.9 79 22 161/87 (111) 91 BiPAP Trach Collar 03/28/18 01:48 95 100 28 7/11/18 01:47 95 22 98 BiPAP/CPAP 28 03/27/18 23:59 95 BiPAP Trach Collar 03/27/18 23:01 37.0 102 19 163/82 (109) 95 BiPAP Trach Collar 03/27/18 22:47 111 100 28 03/27/18 19:45 87 18 98 Trach Collar 6.0 28 03/27/18 19:37 36.4 99 22 162/65 (97) 98 Trach Collar 03/27/18 16:00 Trach Collar 03/27/18 15:04 37.0 97 20 158/79 (105) 97 Trach Collar 10.0 28 General Appearance: no apparent distress Neurologic/Psych: alert (nonverbal, on trach collar) Laboratory Results Last 24 Hours Test 03/27/18 18:14 03/28/18 00:09 03/28/18 06:03 03/28/18 06:50 Bedside Glucose 204 mg/dl 175 mg/dl 190 mg/dl White Blood Count 5.83 K/uL Red Blood Count 3.33 M/uL Hemoglobin 10.1 g/dL Hematocrit 31.5 % Mean Corpuscular Volume 94.6 fL Mean Corpuscular Hemoglobin 30.3 pg Mean Corpuscular Hemoglobin Concent 32.1 g/dl Platelet Count 174 K/uL Mean Platelet Volume 10.1 fL Neutrophils (%) (Auto) 81.7 % Lymphocytes (%) (Auto) 8.7 % Monocytes (%) (Auto) 7.5 % Eosinophils (%) (Auto) 0.0 % Basophils (%) (Auto) 0.0 % Neutrophils # (Auto) 4.76 K/uL Lymphocytes # (Auto) 0.51 K/uL Monocytes # (Auto) 0.44 K/uL Eosinophils # (Auto) 0.00 K/uL Basophils # (Auto) 0.00 K/uL RDW Standard Deviation 56.4 fL RDW Coefficient of Variation 16.4 % Immature Granulocyte % (Auto) 2.1 % Immature Granulocyte # (Auto) 0.12 K/uL Sodium Level 139 mmol/L Potassium Level 3.8 mmol/L Chloride Level 106 mmol/L Carbon Dioxide Level 26 mmol/L Anion Gap 8.0 mmol/L Blood Urea Nitrogen 12 mg/dl Creatinine 0.75 mg/dl Est Creatinine Clear Calc Drug Dose 60.7 ml/min Estimated GFR () 86.6 Estimated GFR (Non- 74.8 BUN/Creatinine Ratio 15.6 Random Glucose 180 mg/dl Calcium Level 7.2 mg/dl Magnesium Level 2.1 mg/dl Test 03/28/18 12:10 Bedside Glucose 206 mg/dl Assessment & Plan Gastroparesis, esophageal dysmotility Ileus Acute on chronic respiratory failure s/p trach Morbid obesity Obstructive sleep apnea COPD with cor pulmonale Dr. Henriquez saw the patient, reviewed imaging and would not recommend surgical J-tube placement at this time. Would recommend evaluation at a tertiary center for possible PEJ if there remains a concern for aspiration/ gastroparesis.
[2018-03-28] MEDS ORDERED: BISACODYL 10 MG SUPP PR STA (15:20)
--- NOTE | 2018-03-28 17:27 | Pulmonology Progress Note ---
Pulmonary Progress Note Date of Service Mar 28, 2018. Attending Dr. Anirudh Baum The patient continued to complain of vague abdominal discomfort, she denies any chest pain, she does have minimal discomfort also at the trach site. Overall she is weak and deconditioned. Objective Patient was stable saturations and notable tracheal aspirate on tracheal suctioning: Was asleep when I walked in the room showing no signs of respiratory insufficiency PmHx: Pulmonary embolism, sleep apnea/OHV, COPD, oxygen dependent 2-5L, diaphragmatic insufficiency/status post fundoplication, steroid-induced myopathy , orthostatic hypotension, hypertension, sclerotic aortic valve, chronic lymphedema, paroxysmal atrial fibrillation, chronic shortness of breath, C diff positive, recurrent UTIs Vital Signs/Physical Exam: SaO2: 90-97% on Venti-mask 21-35% Tmax: 37.2 Neck: Fresh tracheostomy minimal bleeding no signs of breakdown, mild sub-q fremitus Tracheostomy: Mucus secretions noted on tracheostomy suctioning Respiratory: Rhonchi appreciated right lower lobe Cardiac: S1-S2 Abdomen: Positive bowel sounds soft non-tender to deep palpation Labs: Procalcitonin: 0.5 CRP: 0.52 elevated Lactic acid: 1.0 WBC: 6K CT of the abdomen 03/21/2018: Shows continuation bilateral right greater than left atelectasis, no acute changes Urine: Rabia Glabrata Tracheal Aspirate: Staphylococcus Aureus Current Pulmonary Medications/antibiotics/antifungals: 1. Methylprednisolone 40 mg IV daily 2. Caspofungin 50 mg Q 24 (Day#: 3) 3. Spiriva 2 puffs b.i.d. 4. Pantoprazole 40 mg q.day 5. Duo nebs q.6 hours 6. Vancomycin (Day#: 2) 7. Cefepime (Day#: 2) Microbiology URINE: (07/24/15) Escherichia coli (09/01/15) Enterococcus faecalis (12/08/15) Lactobacillus species (11/25/16) Citrobacter species (07/07/17) Escherichia coli (07/24/17) Escherichia coli (03/20/18) Rabia Glabrata Respiratory Bronchial washing (06/29/2010) MRSA Bronchial washing left upper lobe (01/25/16) Fungal Species Right lower lobe bronchial washing (06/30/16) Fungal Species Bronchial washing right middle lobe (11/28/16) MRSA Bronchial washing right middle (4/30/17) Fungal Species Bronchial washing right and left lower lobe (10/09/2017) Bordetella Bronchiseptica Tracheal Aspirate (03/24/18): Staphylococcus Aureus Blood (04/24/16) Propionibacterium acnes Skin (04/17/17) right lower extremity: Pseudomonas aeruginosa, Enterococcus faecalis Stool C. difficile testing for 06/07/2018: Positive Physical exam on 03/26/2018 showed low-grade temperature yesterday, S1-S2 regular rate and rhythm, she does have rhonchi bilaterally, copious amount of secretions from the tracheostomy tube, edema in the periphery, abdomen is benign. Physical exam on 03/27/2018 showed no fever, vital signs are stable, no stridor, distant rhonchi bilaterally, remains with moderate amount of secretions, abdomen is nontender but soft, vague pain mainly on the left and right lower quadrant, minimal edema in the periphery. Physical exam on 03/28/2018 showed afebrile patient, vital signs are stable, no stridor, rhonchi bilaterally, S1 S2 regular rate and rhythm, trach site appeared well maintained. Abdomen is distended tympanic. Edema in the periphery with skin changes due to chronic steroids use. Assessment & Plan 1. Morbid obesity with BMI more than 30. 2. Obstructive sleep apnea with CO2 retention. 3. COPD with cor pulmonale. 4. Acute on chronic respiratory failure, currently with tracheostomy tube. 5. A. fib with RVR. 6. Aspiration pneumonitis. 7. Subcu emphysema, iatrogenic, resolving. 8. Mild CHF with bilateral pleural effusion. 9. chronic hypercapnic respiratory failure. 10. Diaphragm dysfunction status post diaphragm plication. 11. Developing ileus versus partial small bowel obstruction. Plan: 1. Antibiotic per infectious disease. Appreciated. 2. Continue Solu-Medrol 20 mg IV every 12 hours, the patient is not able to take anything oral. Pending plan for J-tube. 3. If the patient continues to have ileus, NG tube placement for decompression. The patient had recent CAT scan of the abdomen on 03/21/2018 which did not show any abnormality. 4. Discontinue Spiriva, the patient has a trach tube in place and will continue with short acting beta agonist on scheduled dose. 5. The patient failed swallow eval. 6. Palliative care consult. 7. Address the CODE STATUS. Thank you, will follow. Data Medications: Current Inpatient Medications Medications (Trade) Dose Ordered Sig/Natasha Route Start Time Stop Time Status Last Admin Dose Admin Acetaminophen (Tylenol Tab) 650 mg Q4H PRN PO 03/15/18 18:30 04/14/18 18:29 Future Hold 03/19/18 20:01 650 MG Al Hydrox/Mg Hydrox/Simethicone (Maalox Max Susp) 15 ml Q4H PRN PO 03/15/18 18:30 04/14/18 18:29 Magnesium Hydroxide (Milk Of Magnesia Susp) 30 ml Q12H PRN PO 03/15/18 18:30 04/14/18 18:29 Ondansetron HCl (Zofran Inj) 4 mg Q6H PRN IV 03/15/18 18:30 04/14/18 18:29 Albuterol Sulfate (Ventolin 0.083% 2.5MG/3ML Neb) 2.5 mg Q4H PRN INH 03/15/18 18:30 04/14/18 18:29 Albuterol/ Ipratropium (Duoneb) 3 ml Q6R NEB 03/15/18 21:00 04/14/18 20:59 03/28/18 14:40 3 ML Butalbital/ Aspirin/Caffeine (Fiorinal Tab/ CAP) 1 tab Q4 PRN PO 03/15/18 20:00 04/14/18 19:59 Future Hold 03/17/18 08:17 1 TAB Calcitriol (Rocaltrol Cap) 0.25 mcg DAILY PO 03/16/18 09:00 04/15/18 08:59 Future Hold 03/24/18 11:37 0.25 MCG Cholecalciferol (Vitamin D Tab) 1,000 inter.unit DAILY PO 03/16/18 09:00 04/15/18 08:59 Future Hold 03/24/18 11:38 1,000 INTER.UNIT Citalopram Hydrobromide (celeXA TAB) 30 mg DAILY PO 03/16/18 09:00 04/15/18 08:59 Future Hold 03/24/18 11:35 30 MG Diclofenac Sodium (Voltaren 1% Top Gel) 1 appln QID PRN EXT 03/15/18 19:30 04/14/18 19:29 03/18/18 08:30 1 APPLN Gabapentin (Neurontin Cap) 300 mg BID PO 03/15/18 21:00 04/14/18 20:59 Future Hold 03/24/18 11:36 300 MG Levothyroxine Sodium (Synthroid Tab) 100 mcg DAILYBB PO 03/16/18 06:00 04/15/18 06:59 Future Hold 03/23/18 05:55 100 MCG Lorazepam (Ativan Tab) 0.25 mg for mild anxiety/ sl... Q6 PRN PO 03/15/18 18:30 04/14/18 18:29 Future Hold 03/18/18 21:12 0.25 MG Nystatin (Mycostatin Powder) 1 appln TID EXT 03/15/18 21:00 04/14/18 20:59 03/28/18 14:00 1 APPLN Ropinirole HCl (Requip Tab) 0.5 mg HS PO 03/15/18 21:00 04/14/18 20:59 Future Hold 03/22/18 21:06 0.5 MG Simvastatin (Zocor Tab) 20 mg HS PO 03/15/18 21:00 04/14/18 20:59 Future Hold 03/22/18 21:06 20 MG Sucralfate (Carafate Susp) 1 gm QID PO 03/15/18 21:00 04/14/18 20:59 Future Hold 03/24/18 12:22 1 GM Tramadol HCl (Ultram Tab) 50 mg Q6H PRN PO 03/15/18 18:30 04/14/18 18:29 Future Hold 03/22/18 11:41 50 MG Apixaban (Eliquis Tab) 5 mg BID PO 03/15/18 21:00 04/14/18 20:59 Future Hold 03/19/18 08:54 5 MG Calcium Carbonate (oS-Misael 500 TAB) 2,500 mg HS PO 03/15/18 21:00 04/14/18 20:59 Future Hold 03/22/18 21:07 2,500 MG Cyanocobalamin (Vitamin B-12 Tab) 1,000 mcg QAM PO 03/16/18 09:00 04/15/18 08:59 Future Hold 03/24/18 11:39 1,000 MCG Pantoprazole Sodium (Protonix Tab) 40 mg QAM PO 03/16/18 09:00 04/15/18 08:59 Future Hold 03/24/18 11:37 40 MG Ferrous Sulfate (Feosol Tab) 325 mg DAILY PO 03/16/18 09:00 04/15/18 08:59 Future Hold 03/24/18 11:36 325 MG Miscellaneous Information (Order Awaiting Action) 1 ea QS N/A 03/16/18 00:00 04/15/18 00:00 03/18/18 18:49 1 EA Potassium Chloride (Klor-Con M10) 20 meq DAILY PO 03/16/18 09:00 04/15/18 08:59 Future Hold 03/24/18 11:36 20 MEQ Glucose (Glucose 40% Gel) 15-30 GRAMS 15 GRAMS... UD PRN PO 03/15/18 19:00 04/14/18 18:59 Glucose (Glucose Chew Tab) 4-8 Tablets 4 Tabl... UD PRN PO 03/15/18 19:00 04/14/18 18:59 Dextrose (Dextrose 50% 50ML Syringe) 25-50ML 25ML FOR ... UD PRN IV 03/15/18 19:00 04/14/18 18:59 Glucagon (Glucagon Inj) 1 mg UD PRN SQ 03/15/18 19:00 04/14/18 18:59 Carbohydrates (Carbohydrates For Hypoglycemia) 15-30 GRAMS 15 grams if BSG 54-69... UD PRN PO 03/15/18 19:00 04/14/18 18:59 Clonidine HCl (Catapres Tab) 0.1 mg QAM PO 03/18/18 09:00 04/17/18 08:59 Future Hold 03/24/18 11:35 0.1 MG Heparin Sodium (Porcine) (Heparin 10 Unit/ ml 5 ml Flush) 5 ml PRN PRN FLUSH 03/20/18 00:30 04/19/18 00:29 Enoxaparin Sodium (Lovenox Inj) 80 mg Q12 SQ 03/20/18 16:00 04/19/18 20:59 Future Hold 03/22/18 08:22 80 MG Amiodarone HCl (Cordarone Tab) 200 mg TID PO 03/20/18 21:00 03/28/18 23:59 Future Hold 03/24/18 15:04 200 MG Amiodarone HCl (Cordarone Tab) 200 mg DAILY PO 03/29/18 09:00 04/28/18 08:59 Non-Formulary Medication (Non-Formulary Patient'S Own Med) 1 ea DAILY PO 03/22/18 09:00 04/21/18 08:59 03/24/18 11:37 1 EA Prednisone (PredniSONE TAB) 30 mg DAILY PO 03/22/18 09:00 04/17/18 08:59 Future Hold 03/22/18 10:45 30 MG Hydromorphone HCl (Dilaudid Inj) 0.25 mg Q1H PRN IV 03/23/18 11:30 04/06/18 11:29 03/28/18 08:35 0.25 MG Vancomycin HCl (Consult) 1 ea UD PRN N/A 03/24/18 11:00 04/23/18 10:59 Cefepime HCl 2000 mg/Syringe 20 ml @ 5 mls/min Q12H IV 03/24/18 12:00 03/31/18 11:59 03/28/18 12:15 5 MLS/MIN Polyethylene (Miralax Powder Packet) 17 gm DAILY PO 03/25/18 09:00 04/14/18 18:29 Future Hold Senna (Senokot Tab) 17.2 mg HS PO 03/24/18 21:00 04/23/18 20:59 Future Hold Acetaminophen 100 ml @ 400 mls/hr Q8H PRN IV 03/25/18 15:45 04/24/18 15:44 03/28/18 08:33 400 MLS/HR Insulin Aspart (novoLOG ASPART) SLIDING SCALE If C... Q6 SC 03/26/18 00:00 04/25/18 00:00 03/28/18 12:17 1 UNITS Potassium Chloride/Dextrose/ Sod Cl 1,000 ml @ 75 mls/hr [id number] IV 03/26/18 10:00 04/25/18 09:59 03/28/18 08:49 75 MLS/HR Vancomycin HCl 1250 mg/Sodium Chloride 275 ml @ 125 mls/hr Q18H IV 03/27/18 06:00 04/03/18 05:59 03/28/18 00:28 125 MLS/HR Levothyroxine Sodium 50 mcg/ Syringe 2.5 ml @ 2 mls/min DAILY@09 IV 03/27/18 09:00 04/26/18 08:59 03/28/18 08:29 2 MLS/MIN Pantoprazole Sodium 40 mg/ Syringe 10 ml @ 5 mls/min DAILY@11 IV 03/27/18 11:00 04/26/18 10:59 03/28/18 12:15 5 MLS/MIN Methylprednisolone Sodium Succinate 20 mg/Syringe 0.32 ml @ 1.5 mls/min Q12H IV 03/27/18 21:00 04/26/18 20:59 03/28/18 08:29 1.5 MLS/MIN Lorazepam (Ativan Inj) 0.5 mg Q6H PRN IV 03/27/18 18:15 04/26/18 18:14 Lorazepam 0.5 mg/ Syringe 1 ml @ 1 mls/min Q6H PRN IV 03/27/18 18:45 04/26/18 18:44 I & O: 24-Hour Column 03/29/18 08:00 Intake Total 776 ml Output Total 275 ml Balance 501 ml Vital Signs: Date Time Temp Pulse Resp B/P (MAP) Pulse Ox O2 Delivery O2 Flow Rate FiO2 03/28/18 14:56 36.6 98 22 149/82 (104) 100 03/28/18 14:40 74 19 98 BiPAP/CPAP 03/28/18 11:04 36.8 67 20 157/82 (107) 100 Room Air 03/28/18 08:00 Trach Collar 03/28/18 07:40 73 19 98 BiPAP/CPAP 03/28/18 06:58 36.9 76 20 151/85 (107) 100 Room Air 03/28/18 05:30 92 97 28 03/28/18 03:14 36.9 79 22 161/87 (111) 91 BiPAP Trach Collar 03/28/18 01:48 95 100 28 03/28/18 01:47 95 22 98 BiPAP/CPAP 28 03/27/18 23:59 95 BiPAP Trach Collar 03/27/18 23:01 37.0 102 19 163/82 (109) 95 BiPAP Trach Collar 03/27/18 22:47 111 100 28 03/27/18 19:45 87 18 98 Trach Collar 6.0 28 03/27/18 19:37 36.4 99 22 162/65 (97) 98 Trach Collar Laboratory Results: Last 24 Hours Test 03/27/18 18:14 03/28/18 00:09 03/28/18 06:03 03/28/18 06:50 Bedside Glucose 204 mg/dl 175 mg/dl 190 mg/dl White Blood Count 5.83 K/uL Red Blood Count 3.33 M/uL Hemoglobin 10.1 g/dL Hematocrit 31.5 % Mean Corpuscular Volume 94.6 fL Mean Corpuscular Hemoglobin 30.3 pg Mean Corpuscular Hemoglobin Concent 32.1 g/dl Platelet Count 174 K/uL Mean Platelet Volume 10.1 fL Neutrophils (%) (Auto) 81.7 % Lymphocytes (%) (Auto) 8.7 % Monocytes (%) (Auto) 7.5 % Eosinophils (%) (Auto) 0.0 % Basophils (%) (Auto) 0.0 % Neutrophils # (Auto) 4.76 K/uL Lymphocytes # (Auto) 0.51 K/uL Monocytes # (Auto) 0.44 K/uL Eosinophils # (Auto) 0.00 K/uL Basophils # (Auto) 0.00 K/uL RDW Standard Deviation 56.4 fL RDW Coefficient of Variation 16.4 % Immature Granulocyte % (Auto) 2.1 % Immature Granulocyte # (Auto) 0.12 K/uL Sodium Level 139 mmol/L Potassium Level 3.8 mmol/L Chloride Level 106 mmol/L Carbon Dioxide Level 26 mmol/L Anion Gap 8.0 mmol/L Blood Urea Nitrogen 12 mg/dl Creatinine 0.75 mg/dl Est Creatinine Clear Calc Drug Dose 60.7 ml/min Estimated GFR () 86.6 Estimated GFR (Non- 74.8 BUN/Creatinine Ratio 15.6 Random Glucose 180 mg/dl Calcium Level 7.2 mg/dl Magnesium Level 2.1 mg/dl Test 03/28/18 12:10 Bedside Glucose 206 mg/dl
[2018-03-28] MEDS ORDERED: VANCOMYCIN TROUGH ONE (17:30)
[2018-03-29] VITALS (14 sets, daily range): BP systolic 130–180; BP diastolic 74–100; PULSE 72–91; TEMP 36.6–37.7; O2SAT 96–100
[2018-03-29] MEDS: CEFEPIME IV 2,000 MG in SYRINGE 7.5 ML IV SCH ×3 (00:42→23:18)
[2018-03-29] MEDS: ALBUT/IPRATROP 3MG/0.5MG NEB 3 ML VIAL NEB SCH ×4 (01:55→19:00)
[2018-03-29] MEDS: HYDROmorphone INJ 0.5 MG/0.5 ML SYR IV PRN ×5 (04:30→23:05)
--- NOTE | 2018-03-29 05:21 | Progress Note ---
Subjective Date of Service: Mar 28, 2018. Subjective Pt evaluation today including: conversation w/ family (Delores, daughter, at bedside), physical exam, chart review, lab review, review of studies (KUB x-ray) , conversation w/ eligibility consultant (gen surg, GI, pulmonary, quality audit representative from [facility] in [place] ), review of inpatient medication list Pain: neck pain near trach PO Intake: npo Voiding: christian catheter in place (purewick) tele stable overnight tolerating trach and blow-by during my visit she kept her eyes shut the entire visit, but did open them to commands and followed all commands she also complained of frequent burping and abdominal distension no respiratory distress Problem List Medical Problems: (1) Cervical strain Status: Acute (2) Contusion of multiple sites Status: Acute (3) COPD exacerbation Status: Acute (4) Fall Status: Acute (5) Fall from chair, initial encounter Status: Acute (6) Fatigue Status: Acute (7) Head injury Status: Acute (8) Head injury Status: Acute (9) Hip pain Status: Acute (10) Hypocalcemia Status: Acute (11) Hypoxia Status: Acute (12) Hypoxia Status: Acute (13) Lower extremity edema Status: Acute (14) PNA (pneumonia) Status: Acute (15) Pneumonia Status: Acute (16) Pneumonitis Status: Acute (17) Reactive airway disease Status: Acute (18) Right flank pain Status: Acute (19) Sepsis Status: Acute (20) Sepsis Status: Acute (21) Syncope Status: Acute (22) Traumatic compression fracture of third thoracic vertebra Status: Acute (23) Vaginal yeast infection Status: Acute (24) Weakness Status: Acute (25) Yeast vaginitis Status: Acute Review of Systems Constitutional: No fever Respiratory: + cough, + sputum, + hemoptysis, No wheezing, No dyspnea at rest Cardiac: No chest pain Abdomen: + pain, + constipation, No nausea, No vomiting, No diarrhea Objective Vital Signs Date Time Temp Pulse Resp B/P (MAP) Pulse Ox O2 Delivery O2 Flow Rate FiO2 03/28/18 20:00 89 21 98 BiPAP/CPAP 28 03/28/18 19:13 37.1 84 26 158/91 (113) 100 Trach Collar 8.0 03/28/18 14:56 36.6 98 22 149/82 (104) 100 03/28/18 14:40 74 19 98 BiPAP/CPAP 28 03/28/18 11:04 36.8 67 20 157/82 (107) 100 Room Air 03/28/18 08:00 Trach Collar 28 03/28/18 07:40 73 19 98 BiPAP/CPAP 03/28/18 06:58 36.9 76 20 151/85 (107) 100 Room Air 03/28/18 05:30 92 97 28 03/28/18 03:14 36.9 79 22 161/87 (111) 91 BiPAP Trach Collar 03/28/18 01:48 95 100 28 03/28/18 01:47 95 22 98 BiPAP/CPAP 28 03/27/18 23:59 95 BiPAP Trach Collar 03/27/18 23:01 37.0 102 19 163/82 (109) 95 BiPAP Trach Collar 03/27/18 22:47 111 100 28 Physical Exam General Appearance: no apparent distress, + obese, + pertinent finding ( cushingnood facies) ENT: pharynx normal Neck: no JVD, + pertinent finding (trach in place; secretions noted) Respiratory/Chest: lungs clear, no respiratory distress, no accessory muscle use, + decreased breath sounds (bases) Cardiovascular: regular rate, rhythm, no gallop, no murmur Abdomen: + distended, + tenderness, + hernia (umbilical - reducible) Extremities: no pedal edema Neurologic/Psychiatric: + depressed affect Skin: + pertinent finding (PICC line LUE) Laboratory Results Last 24 Hours Test 03/28/18 00:09 03/28/18 06:03 03/28/18 06:50 03/28/18 12:10 Bedside Glucose 175 mg/dl 190 mg/dl 206 mg/dl White Blood Count 5.83 K/uL Red Blood Count 3.33 M/uL Hemoglobin 10.1 g/dL Hematocrit 31.5 % Mean Corpuscular Volume 94.6 fL Mean Corpuscular Hemoglobin 30.3 pg Mean Corpuscular Hemoglobin Concent 32.1 g/dl Platelet Count 174 K/uL Mean Platelet Volume 10.1 fL Neutrophils (%) (Auto) 81.7 % Lymphocytes (%) (Auto) 8.7 % Monocytes (%) (Auto) 7.5 % Eosinophils (%) (Auto) 0.0 % Basophils (%) (Auto) 0.0 % Neutrophils # (Auto) 4.76 K/uL Lymphocytes # (Auto) 0.51 K/uL Monocytes # (Auto) 0.44 K/uL Eosinophils # (Auto) 0.00 K/uL Basophils # (Auto) 0.00 K/uL RDW Standard Deviation 56.4 fL RDW Coefficient of Variation 16.4 % Immature Granulocyte % (Auto) 2.1 % Immature Granulocyte # (Auto) 0.12 K/uL Sodium Level 139 mmol/L Potassium Level 3.8 mmol/L Chloride Level 106 mmol/L Carbon Dioxide Level 26 mmol/L Anion Gap 8.0 mmol/L Blood Urea Nitrogen 12 mg/dl Creatinine 0.75 mg/dl Est Creatinine Clear Calc Drug Dose 60.7 ml/min Estimated GFR () 86.6 Estimated GFR (Non- 74.8 BUN/Creatinine Ratio 15.6 Random Glucose 180 mg/dl Calcium Level 7.2 mg/dl Magnesium Level 2.1 mg/dl Test 03/28/18 17:29 03/28/18 18:27 Vancomycin Level Trough 15.6 mcg/ml Bedside Glucose 175 mg/dl Assessment and Plan 83yo female: 1. b/l pneumonia - 2nd to MRSA - day #5 of therapy. Suspect we can d/c the cefepime soon although will defer that decision to ID. 2. new-onset a. fib - converted to NSR and has remained in NSR with amiodarone. Amiodarone now on hold due to NPO status. Would resume lovenox 1mg/kg BID tomorrow for anticoagulation purposes (or heparin drip). 3. abdominal pain with lactic acidosis - 03/15/[address] without pathology[address] CT 03/20/18 normal except for moderate constipation. There has been NO signs of an ischemic bowel process. Gall bladder w/u was negative. May have had a low-grade stercolitis. This certainly could have caused abd pain , lactic acidosis, and confusion. 4. acute/chronic hypoxic respiratory failure - s/p trach placement. Acute component 2nd to #1. Overall stable. 5. ileus - etiology? This may be narcotic related as we are 4 days post-op from the trach placement and I would have expected the ileus to have occurred much sooner if surgery-related. Electrolytes wnl. Tried to place NG tube today w/o success. Gave dulcolax suppos x 1 today. NPO. 6. protein calorie malnutrition, moderate degree, along with aspiration - needs permanent enteral feeding tube. GI feels strongly about J-tube placement. Gen surg has suggested that she go to tertiary care center for placement of a J- tube. 7. COPD with mild exacerbation - remains on IV steroids; pulmonary managing. Continue pulmonary toilet, nebs, etc. 8. H/O DVTs - noted; remains on anticoagulation. 9. CKD stage 3 - creatinine stable. 10. Hypothyroidism - compensated; cont synthroid IV. 11. T2DM - controlled. 12. chronic diastolic CHF - compensated 13. right-sided elevated Hemidiaphragm - S/P Plication in the past. 14. depression - resume SSRI when able to give safely. 15. HTN - controlled 16. FEN - continue current IVF; NPO; bmp/mag/phos in am. 17. DVT proph - would resume lovenox 1mg/kg BID in am as long as no contraindication from pulmonary standpoint. Delores, daughter, updated at bedside dispo - [facility] in [place]? Continued [facility] stay due to: abnormal vital signs, inadequate po fluid intake, voiding difficulties, ambulation difficulties, multiple IV medications needed, other (ileus, pneumonia, etc) Discharge planning: acute transfer ([facility] - [place])
[2018-03-29 06:18] LABS: CALCIUM 7.3 mg/dl (8.5-10.1); CREATININE 0.85 mg/dl (0.60-1.20); PHOSPHORUS 2.1 mg/dl (2.5-4.9); POTASSIUM 3.7 mmol/L (3.5-5.1)
[2018-03-29] MEDS: INSULIN ASPART 100 UNITS/ML 3 ML PEN SC SCH ×4 (06:39→18:02)
[2018-03-29] MEDS: AMIODARONE 200 MG TAB PO SCH (09:00)
[2018-03-29] MEDS: ACETAMINOPHEN IV 1000MG/100ML IV PRN (09:02)
[2018-03-29] MEDS: METHYLPREDNISOLONE IV 20 MG in SYRINGE 0 ML IV SCH ×2 (09:07→19:48)
[2018-03-29] MEDS: LEVOTHYROXINE SODIUM INJ 50 MCG in SYRINGE 0 ML IV SCH (09:07)
[2018-03-29] MEDS: NYSTATIN POWDER 15GM BTL EXT SCH ×3 (09:08→19:48)
[2018-03-29] MEDS ORDERED: POTASSIUM PHOS 3 MMOL/1 ML INFUSION IV STA (09:27)
[2018-03-29] MEDS ORDERED: POTASSIUM PHOSPHATE INJ 15 MMOL in SODIUM CHLORIDE 0.9% 250ML 250 ML IV ONE (10:00)
[2018-03-29] MEDS: D5W AND 1/2NSS + 20MEQ KCL 1,000 ML IV SCH ×2 (10:03→23:05)
[2018-03-29] MEDS: PANTOprazole INJ 40 MG in SYRINGE 0 ML IV SCH (10:04)
[2018-03-29] MEDS ORDERED: LIDOCAINE HCL 2% JELLY 30 ML TUBE ONE (11:11)
[2018-03-29] MEDS ORDERED: BENZOCAIN/TETRACA/BUTAM SPRAY 200 APPLN/20 GM SPRY EXT ONE (11:25)
[2018-03-29] MEDS: VANCOMYCIN IV 1,250 MG in SODIUM CHLORIDE 0.9% 250ML 250 ML IV SCH (11:58)
--- NOTE | 2018-03-29 12:04 | Pharmacy Progress Note ---
Pharmacy Abx Dose Short Note Date of Service Mar 29, 2018. Assessment & Plan Assessment Item Value Date Time Vancomycin Level Trough 15.6 mcg/ml 03/28/18 1729 83 year old female receiving Vancomycin for treatment of MRSA pneumonia Day # 6 of antimicrobial therapy. Plan Vancomycin * Trough level of 15.6 mcg/mL is therapeutic * Continue dose of 1250 mg IV every 18 hours * Goal trough level for pneumonia : 15 to 20 mcg/mL * Trough level ordered for: 03/30/18 @ 2330 Pharmacy will continue to follow and will adjust dose/frequency as necessary. Thank you.
--- NOTE | 2018-03-29 13:47 | Pulmonology Progress Note ---
Pulmonary Progress Note Date of Service Mar 29, 2018. Attending Dr. Anirudh Baum The patient continued to be having abdominal distention with vague abdominal pain mainly on the right side. She is currently on the ventilator placed with tracheal cuff inflation. The patient agreed to placement of NG tube which was placed in the left nostril. And confirmed with KUB. Objective Patient was stable saturations and notable tracheal aspirate on tracheal suctioning: Was asleep when I walked in the room showing no signs of respiratory insufficiency PmHx: Pulmonary embolism, sleep apnea/OHV, COPD, oxygen dependent 2-5L, diaphragmatic insufficiency/status post fundoplication, steroid-induced myopathy , orthostatic hypotension, hypertension, sclerotic aortic valve, chronic lymphedema, paroxysmal atrial fibrillation, chronic shortness of breath, C diff positive, recurrent UTIs Vital Signs/Physical Exam: SaO2: 90-97% on Venti-mask 21-35% Tmax: 37.2 Neck: Fresh tracheostomy minimal bleeding no signs of breakdown, mild sub-q fremitus Tracheostomy: Mucus secretions noted on tracheostomy suctioning Respiratory: Rhonchi appreciated right lower lobe Cardiac: S1-S2 Abdomen: Positive bowel sounds soft non-tender to deep palpation Labs: Procalcitonin: 0.5 CRP: 0.52 elevated Lactic acid: 1.0 WBC: 6K CT of the abdomen 03/21/2018: Shows continuation bilateral right greater than left atelectasis, no acute changes Urine: Rabia Glabrata Tracheal Aspirate: Staphylococcus Aureus Current Pulmonary Medications/antibiotics/antifungals: 1. Methylprednisolone 40 mg IV daily 2. Caspofungin 50 mg Q 24 (Day#: 3) 3. Spiriva 2 puffs b.i.d. 4. Pantoprazole 40 mg q.day 5. Duo nebs q.6 hours 6. Vancomycin (Day#: 2) 7. Cefepime (Day#: 2) Microbiology URINE: (07/24/15) Escherichia coli (09/01/15) Enterococcus faecalis (12/08/15) Lactobacillus species (11/25/16) Citrobacter species (07/07/17) Escherichia coli (07/24/17) Escherichia coli (03/20/18) Rabia Glabrata Respiratory Bronchial washing (06/29/2010) MRSA Bronchial washing left upper lobe (01/25/16) Fungal Species Right lower lobe bronchial washing (06/30/16) Fungal Species Bronchial washing right middle lobe (11/28/16) MRSA Bronchial washing right middle (01/15/17) Fungal Species Bronchial washing right and left lower lobe (10/09/2017) Bordetella Bronchiseptica Tracheal Aspirate (03/24/18): Staphylococcus Aureus Blood (04/24/16) Propionibacterium acnes Skin (04/17/17) right lower extremity: Pseudomonas aeruginosa, Enterococcus faecalis Stool C. difficile testing for 06/07/2018: Positive Physical exam on 03/26/2018 showed low-grade temperature yesterday, S1-S2 regular rate and rhythm, she does have rhonchi bilaterally, copious amount of secretions from the tracheostomy tube, edema in the periphery, abdomen is benign. Physical exam on 03/27/2018 showed no fever, vital signs are stable, no stridor, distant rhonchi bilaterally, remains with moderate amount of secretions, abdomen is nontender but soft, vague pain mainly on the left and right lower quadrant, minimal edema in the periphery. Physical exam on 03/28/2018 showed afebrile patient, vital signs are stable, no stridor, rhonchi bilaterally, S1 S2 regular rate and rhythm, trach site appeared well maintained. Abdomen is distended tympanic. Edema in the periphery with skin changes due to chronic steroids use. Physical exam on 03/29/2018 showed stable vital signs, S1-S2 regular rate and rhythm, trach site appears well-maintained, subcu emphysema is improving, distant breath sounds bilaterally, abdomen remains distended and tympanic, umbilical hernia, edema in the periphery, cushingoid type. KUB was reviewed after placement of NG tube which showed the tip of the NG tube is sub-phrenic. Assessment & Plan 1. Morbid obesity with BMI more than 30. 2. Obstructive sleep apnea with CO2 retention. 3. COPD with cor pulmonale. 4. Acute on chronic respiratory failure, currently with tracheostomy tube. 5. A. fib with RVR. 6. Aspiration pneumonitis. 7. Subcu emphysema, iatrogenic, resolving. 8. Mild CHF with bilateral pleural effusion. 9. chronic hypercapnic respiratory failure. 10. Diaphragm dysfunction status post diaphragm plication. 11. Developing ileus versus partial small bowel obstruction. 12. 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 Plan: 1. Antibiotic per infectious disease. Appreciated. 2. Continue Solu-Medrol 20 mg IV every 12 hours, the patient is not able to take anything oral. Pending plan for J-tube. 3. NG tube was placed, KUB was confirming the NG tube placement, keep the NG tube to suction. 4. Discontinue Spiriva, the patient has a trach tube in place and will continue with short acting beta agonist on scheduled dose. 5. The patient has intolerance to most of the prokinetic drugs. I am not sure what her allergies to erythromycin or Reglan, if it is not true allergy, it can be started via the NG tube. 6. Palliative care consult. 7. Address the CODE STATUS. 8. Once her ileus is improving, start trickle tube feeding and advance as tolerated. 9. J-tube placement by surgery once appropriate medically. Thank you, will follow. Data Medications: Current Inpatient Medications Medications (Trade) Dose Ordered Sig/Natasha Route Start Time Stop Time Status Last Admin Dose Admin Acetaminophen (Tylenol Tab) 650 mg Q4H PRN PO 03/15/18 18:30 04/14/18 18:29 Future Hold 03/19/18 20:01 650 MG Al Hydrox/Mg Hydrox/Simethicone (Maalox Max Susp) 15 ml Q4H PRN PO 03/15/18 18:30 04/14/18 18:29 Magnesium Hydroxide (Milk Of Magnesia Susp) 30 ml Q12H PRN PO 03/15/18 18:30 04/14/18 18:29 Ondansetron HCl (Zofran Inj) 4 mg Q6H PRN IV 03/15/18 18:30 04/14/18 18:29 Albuterol Sulfate (Ventolin 0.083% 2.5MG/3ML Neb) 2.5 mg Q4H PRN INH 03/15/18 18:30 04/14/18 18:29 Albuterol/ Ipratropium (Duoneb) 3 ml Q6R NEB 03/15/18 21:00 04/14/18 20:59 03/29/18 06:56 3 ML Butalbital/ Aspirin/Caffeine (Fiorinal Tab/ CAP) 1 tab Q4 PRN PO 03/15/18 20:00 04/14/18 19:59 Future Hold 03/17/18 08:17 1 TAB Calcitriol (Rocaltrol Cap) 0.25 mcg DAILY PO 03/16/18 09:00 04/15/18 08:59 Future Hold 03/24/18 11:37 0.25 MCG Cholecalciferol (Vitamin D Tab) 1,000 inter.unit DAILY PO 03/16/18 09:00 04/15/18 08:59 Future Hold 03/24/18 11:38 1,000 INTER.UNIT Citalopram Hydrobromide (celeXA TAB) 30 mg DAILY PO 03/16/18 09:00 04/15/18 08:59 Future Hold 03/24/18 11:35 30 MG Diclofenac Sodium (Voltaren 1% Top Gel) 1 appln QID PRN EXT 03/15/18 19:30 04/14/18 19:29 03/18/18 08:30 1 APPLN Gabapentin (Neurontin Cap) 300 mg BID PO 03/15/18 21:00 04/14/18 20:59 Future Hold 03/24/18 11:36 300 MG Levothyroxine Sodium (Synthroid Tab) 100 mcg DAILYBB PO 03/16/18 06:00 04/15/18 06:59 Future Hold 03/23/18 05:55 100 MCG Lorazepam (Ativan Tab) 0.25 mg for mild anxiety/ sl... Q6 PRN PO 03/15/18 18:30 04/14/18 18:29 Future Hold 03/18/18 21:12 0.25 MG Nystatin (Mycostatin Powder) 1 appln TID EXT 03/15/18 21:00 04/14/18 20:59 03/29/18 09:08 1 APPLN Ropinirole HCl (Requip Tab) 0.5 mg HS PO 03/15/18 21:00 04/14/18 20:59 Future Hold 03/22/18 21:06 0.5 MG Simvastatin (Zocor Tab) 20 mg HS PO 03/15/18 21:00 04/14/18 20:59 Future Hold 03/22/18 21:06 20 MG Sucralfate (Carafate Susp) 1 gm QID PO 03/15/18 21:00 04/14/18 20:59 Future Hold 03/24/18 12:22 1 GM Tramadol HCl (Ultram Tab) 50 mg Q6H PRN PO 03/15/18 18:30 04/14/18 18:29 Future Hold 03/22/18 11:41 50 MG Apixaban (Eliquis Tab) 5 mg BID PO 03/15/18 21:00 04/14/18 20:59 Future Hold 03/19/18 08:54 5 MG Calcium Carbonate (oS-Misael 500 TAB) 2,500 mg HS PO 03/15/18 21:00 04/14/18 20:59 Future Hold 03/22/18 21:07 2,500 MG Cyanocobalamin (Vitamin B-12 Tab) 1,000 mcg QAM PO 03/16/18 09:00 04/15/18 08:59 Future Hold 03/24/18 11:39 1,000 MCG Pantoprazole Sodium (Protonix Tab) 40 mg QAM PO 03/16/18 09:00 04/15/18 08:59 Future Hold 03/24/18 11:37 40 MG Ferrous Sulfate (Feosol Tab) 325 mg DAILY PO 03/16/18 09:00 04/15/18 08:59 Future Hold 03/24/18 11:36 325 MG Miscellaneous Information (Order Awaiting Action) 1 ea QS N/A 03/16/18 00:00 04/15/18 00:00 03/18/18 18:49 1 EA Potassium Chloride (Klor-Con M10) 20 meq DAILY PO 03/16/18 09:00 04/15/18 08:59 Future Hold 03/24/18 11:36 20 MEQ Glucose (Glucose 40% Gel) 15-30 GRAMS 15 GRAMS... UD PRN PO 03/15/18 19:00 04/14/18 18:59 Glucose (Glucose Chew Tab) 4-8 Tablets 4 Tabl... UD PRN PO 03/15/18 19:00 04/14/18 18:59 Dextrose (Dextrose 50% 50ML Syringe) 25-50ML 25ML FOR ... UD PRN IV 03/15/18 19:00 04/14/18 18:59 Glucagon (Glucagon Inj) 1 mg UD PRN SQ 03/15/18 19:00 04/14/18 18:59 Carbohydrates (Carbohydrates For Hypoglycemia) 15-30 GRAMS 15 grams if BSG 54-69... UD PRN PO 03/15/18 19:00 04/14/18 18:59 Clonidine HCl (Catapres Tab) 0.1 mg QAM PO 03/18/18 09:00 04/17/18 08:59 Future Hold 03/24/18 11:35 0.1 MG Heparin Sodium (Porcine) (Heparin 10 Unit/ ml 5 ml Flush) 5 ml PRN PRN FLUSH 03/20/18 00:30 04/19/18 00:29 Enoxaparin Sodium (Lovenox Inj) 80 mg Q12 SQ 03/20/18 16:00 04/19/18 20:59 Future Hold 03/22/18 08:22 80 MG Amiodarone HCl (Cordarone Tab) 200 mg DAILY PO 03/29/18 09:00 04/28/18 08:59 Non-Formulary Medication (Non-Formulary Patient'S Own Med) 1 ea DAILY PO 03/22/18 09:00 04/21/18 08:59 03/24/18 11:37 1 EA Prednisone (PredniSONE TAB) 30 mg DAILY PO 03/22/18 09:00 04/17/18 08:59 Future Hold 03/22/18 10:45 30 MG Hydromorphone HCl (Dilaudid Inj) 0.25 mg Q1H PRN IV 03/23/18 11:30 04/06/18 11:29 03/29/18 09:01 0.25 MG Vancomycin HCl (Consult) 1 ea UD PRN N/A 03/24/18 11:00 04/23/18 10:59 Cefepime HCl 2000 mg/Syringe 20 ml @ 5 mls/min Q12H IV 03/24/18 12:00 03/31/18 11:59 03/29/18 11:58 5 MLS/MIN Polyethylene (Miralax Powder Packet) 17 gm DAILY PO 03/25/18 09:00 04/14/18 18:29 Future Hold Senna (Senokot Tab) 17.2 mg HS PO 03/24/18 21:00 04/23/18 20:59 Future Hold Acetaminophen 100 ml @ 400 mls/hr Q8H PRN IV 03/25/18 15:45 04/24/18 15:44 03/29/18 09:02 400 MLS/HR Insulin Aspart (novoLOG ASPART) SLIDING SCALE If C... Q6 SC 03/26/18 00:00 04/25/18 00:00 03/29/18 06:39 2 UNITS Potassium Chloride/Dextrose/ Sod Cl 1,000 ml @ 75 mls/hr [id number] IV 03/26/18 10:00 04/25/18 09:59 03/29/18 10:03 75 MLS/HR Vancomycin HCl 1250 mg/Sodium Chloride 275 ml @ 125 mls/hr Q18H IV 03/27/18 06:00 04/03/18 05:59 03/29/18 11:58 125 MLS/HR Levothyroxine Sodium 50 mcg/ Syringe 2.5 ml @ 2 mls/min DAILY@09 IV 03/27/18 09:00 04/26/18 08:59 03/29/18 09:07 2 MLS/MIN Pantoprazole Sodium 40 mg/ Syringe 10 ml @ 5 mls/min DAILY@11 IV 03/27/18 11:00 04/26/18 10:59 03/29/18 10:04 5 MLS/MIN Methylprednisolone Sodium Succinate 20 mg/Syringe 0.32 ml @ 1.5 mls/min Q12H IV 03/27/18 21:00 04/26/18 20:59 03/29/18 09:07 1.5 MLS/MIN Lorazepam (Ativan Inj) 0.5 mg Q6H PRN IV 03/27/18 18:15 04/26/18 18:14 Lorazepam 0.5 mg/ Syringe 1 ml @ 1 mls/min Q6H PRN IV 03/27/18 18:45 04/26/18 18:44 Vital Signs: Date Time Temp Pulse Resp B/P (MAP) Pulse Ox O2 Delivery O2 Flow Rate FiO2 03/29/18 11:44 36.6 85 180/95 (123) 100 Trach Collar 03/29/18 08:00 BiPAP 03/29/18 07:14 37.0 81 16 147/79 (101) 99 Trach Collar 03/29/18 06:58 86 22 100 BiPAP/CPAP 28 03/29/18 06:58 86 100 28 03/29/18 04:28 91 98 28 03/29/18 03:10 37.7 81 18 134/78 (96) 97 BiPAP Trach Collar 03/29/18 01:57 83 97 28 03/29/18 01:56 83 26 97 BiPAP/CPAP 28 03/29/18 00:00 Trach Collar 6.0 28 03/28/18 23:48 37.1 86 18 155/84 (107) 98 BiPAP Trach Collar 03/28/18 20:00 89 21 98 BiPAP/CPAP 28 03/28/18 20:00 89 99 28 03/28/18 19:13 37.1 84 26 158/91 (113) 100 Trach Collar 8.0 03/28/18 16:00 Trach Collar 6.0 28 03/28/18 14:56 36.6 98 22 149/82 (104) 100 03/28/18 14:40 74 19 98 BiPAP/CPAP 28 Laboratory Results: Last 24 Hours Test 03/28/18 17:29 03/28/18 18:27 03/29/18 00:46 03/29/18 05:35 Vancomycin Level Trough 15.6 mcg/ml Bedside Glucose 175 mg/dl 155 mg/dl Sodium Level 141 mmol/L Potassium Level 3.7 mmol/L Chloride Level 107 mmol/L Carbon Dioxide Level 26 mmol/L Anion Gap 7.0 mmol/L Blood Urea Nitrogen 11 mg/dl Creatinine 0.85 mg/dl Est Creatinine Clear Calc Drug Dose 52.8 ml/min Estimated GFR () 74.5 Estimated GFR (Non- 64.3 BUN/Creatinine Ratio 12.3 Random Glucose 217 mg/dl Calcium Level 7.3 mg/dl Phosphorus Level 2.1 mg/dl Magnesium Level 2.0 mg/dl Test 03/29/18 06:23 03/29/18 11:54 Bedside Glucose 224 mg/dl 167 mg/dl
--- NOTE | 2018-03-29 13:59 | DIAGNOSTIC IMAGING REPORT ---
KUB HISTORY: Status post placement of enteric tube post decompression via NG COMPARISON: KUB of same day at 03/28/2018 FINDINGS: Status post placement of an enteric tube with distal tip terminating within the right upper abdomen, likely within the region of the distal gastric lumen. Surgical clips project over the abdominal right upper quadrant. Persistent dilated large and small bowel without significant change from comparison retained enteric contrast is noted throughout the colon. Posterior joe and screw fusion hardware of the thoracolumbar spine. Peripheral arterial calcifications are noted. IMPRESSION: 1. Enteric tube projects over the abdominal right upper quadrant, likely within the distal gastric lumen. 2. Persistent ileus pattern without evidence of obstruction. Electronically signed by: Rey Campos M.D. 03/29/2018 1:57 PM Dictated Date/Time: 03/29/2018 1:48 PM
[2018-03-29] MEDS: LORAZEPAM 2 MG/ML 1 ML VIAL IV PRN (17:08)
[2018-03-30] VITALS (12 sets, daily range): BP systolic 123–165; BP diastolic 71–97; PULSE 77–102; TEMP 37–37.3; O2SAT 97–100
[2018-03-30] MEDS: LORAZEPAM 2 MG/ML 1 ML VIAL IV PRN ×2 (00:21→17:25)
[2018-03-30] MEDS: INSULIN ASPART 100 UNITS/ML 3 ML PEN SC SCH ×5 (00:24→23:50)
--- NOTE | 2018-03-30 00:29 | Progress Note ---
Subjective Date of Service: Mar 29, 2018. Subjective Pt evaluation today including: conversation w/ patient, physical exam, chart review, lab review, review of studies (KUB x-ray), review of inpatient medication list Pain: abdomen, neck PO Intake: npo, ng tube in place tele stable overnight during the visit she was very awake, alert, and trying to answer questions by whispering when asked if she still wants to pursue a permanent feeding tube she shook her head "NO" multiple times this was witnessed by the medical hospital sales in the room NG tube was placed successfully earlier today; f/u KUB x-ray showed proper NG tube placement Problem List Medical Problems: (1) Cervical strain Status: Acute (2) Contusion of multiple sites Status: Acute (3) COPD exacerbation Status: Acute (4) Fall Status: Acute (5) Fall from chair, initial encounter Status: Acute (6) Fatigue Status: Acute (7) Head injury Status: Acute (8) Head injury Status: Acute (9) Hip pain Status: Acute (10) Hypocalcemia Status: Acute (11) Hypoxia Status: Acute (12) Hypoxia Status: Acute (13) Lower extremity edema Status: Acute (14) PNA (pneumonia) Status: Acute (15) Pneumonia Status: Acute (16) Pneumonitis Status: Acute (17) Reactive airway disease Status: Acute (18) Right flank pain Status: Acute (19) Sepsis Status: Acute (20) Sepsis Status: Acute (21) Syncope Status: Acute (22) Traumatic compression fracture of third thoracic vertebra Status: Acute (23) Vaginal yeast infection Status: Acute (24) Weakness Status: Acute (25) Yeast vaginitis Status: Acute Review of Systems Constitutional: No fever Respiratory: + cough, + sputum, No dyspnea at rest Cardiac: No chest pain Abdomen: + pain, No nausea, No vomiting Objective Vital Signs Date Time Temp Pulse Resp B/P (MAP) Pulse Ox O2 Delivery O2 Flow Rate FiO2 03/29/18 16:47 162/94 (116) 03/29/18 16:00 BiPAP 6.0 28 Trach Collar 03/29/18 15:33 37.3 82 20 176/100 (125) 98 Trach Collar 03/29/18 14:17 72 22 100 BiPAP/CPAP 28 03/29/18 14:17 72 100 28 03/29/18 11:44 36.6 85 180/95 (123) 100 Trach Collar 03/29/18 08:00 BiPAP 03/29/18 07:14 37.0 81 16 147/79 (101) 99 Trach Collar 03/29/18 06:58 86 22 100 BiPAP/CPAP 28 03/29/18 06:58 86 100 28 03/29/18 04:28 91 98 28 03/29/18 03:10 37.7 81 18 134/78 (96) 97 BiPAP Trach Collar 03/29/18 01:57 83 97 28 03/29/18 01:56 83 26 97 BiPAP/CPAP 28 03/29/18 00:00 Trach Collar 6.0 28 03/28/18 23:48 37.1 86 18 155/84 (107) 98 BiPAP Trach Collar 03/28/18 20:00 89 21 98 BiPAP/CPAP 28 03/28/18 20:00 89 99 28 Physical Exam General Appearance: no apparent distress, + pertinent finding (more awake and alert today) ENT: pharynx normal Neck: no JVD, + pertinent finding (trach in place, clean) Respiratory/Chest: no respiratory distress, no accessory muscle use, + decreased breath sounds (bases; scattered crackles b/l ) Cardiovascular: regular rate, rhythm, no gallop Abdomen: normal bowel sounds, no organomegaly, + distended (worse than yesterday), + tenderness (generalized) Extremities: no pedal edema Neurologic/Psychiatric: alert, + depressed affect Laboratory Results Last 24 Hours Test 03/29/18 00:46 03/29/18 05:35 03/29/18 06:23 03/29/18 11:54 Bedside Glucose 155 mg/dl 224 mg/dl 167 mg/dl Sodium Level 141 mmol/L Potassium Level 3.7 mmol/L Chloride Level 107 mmol/L Carbon Dioxide Level 26 mmol/L Anion Gap 7.0 mmol/L Blood Urea Nitrogen 11 mg/dl Creatinine 0.85 mg/dl Est Creatinine Clear Calc Drug Dose 52.8 ml/min Estimated GFR () 74.5 Estimated GFR (Non- 64.3 BUN/Creatinine Ratio 12.3 Random Glucose 217 mg/dl Calcium Level 7.3 mg/dl Phosphorus Level 2.1 mg/dl Magnesium Level 2.0 mg/dl Test 03/29/18 18:00 Bedside Glucose 203 mg/dl Assessment and Plan 83yo female: 1. b/l pneumonia - 2nd to MRSA - day #6 of therapy. Suspect we can d/c the cefepime today. Continue vanco for MRSA. 2. new-onset a. fib - converted to NSR and has remained in NSR with amiodarone for several days. Amiodarone now on hold due to NPO status. Will speak with pulmonary about resuming lovenox 1mg/kg BID for anticoagulation purposes (or heparin drip). 3. ileus - s/p NG tube insertion today. Follow w/ serial exams. Keep electrolytes normal. Treat #1 above. Minimize narcotics if at all possible. 4. acute/chronic hypoxic respiratory failure - s/p trach placement. Acute component 2nd to #1. Overall stable. 5. dysphagia - patient now reporting today she does NOT want permanent feeding tube. Will ask speech to perform re-evaluation of her swallow function given her wishes and with the hope her swallowing has improved. 6. protein calorie malnutrition, moderate degree, along with aspiration - needs permanent enteral feeding tube. GI feels strongly about J-tube placement. Gen surg has suggested that she go to tertiary [facility] for placement of a J- tube. See #5, however, about pt's change of heart re: a feeding tube. 7. COPD with mild exacerbation - remains on IV steroids; pulmonary managing. Continue pulmonary toilet, nebs, etc. Stable. 8. H/O DVTs - noted; need to resume anticoagulation soon. 9. CKD stage 3 - creatinine stable. 10. Hypothyroidism - compensated; cont synthroid IV. 11. T2DM - controlled. 12. chronic diastolic CHF - compensated 13. right-sided elevated Hemidiaphragm - S/P Plication in the past. 14. depression - resume SSRI when able to give safely. 15. HTN - controlled 16. FEN - continue current IVF; NPO; replace phos today IV; repeat level in am. 17. DVT proph - would resume lovenox 1mg/kg BID in am as long as no contraindication from pulmonary standpoint. left messages for Delores, her daughter, yesterday and today need to address code status, feeding tube status, etc. Continued [facility] stay due to: abnormal vital signs, inadequate po fluid intake, inadequate oral pain control, voiding difficulties, ambulation difficulties, multiple IV medications needed, other (ileus, pneumonia, etc) Discharge planning: acute transfer ([facility])
[2018-03-30] MEDS: ALBUT/IPRATROP 3MG/0.5MG NEB 3 ML VIAL NEB SCH ×4 (02:02→19:10)
[2018-03-30] MEDS: HYDROmorphone INJ 0.5 MG/0.5 ML SYR IV PRN ×6 (02:29→22:32)
[2018-03-30] MEDS: VANCOMYCIN IV 1,250 MG in SODIUM CHLORIDE 0.9% 250ML 250 ML IV SCH ×2 (05:50→23:52)
[2018-03-30 06:53] LABS: HEMATOCRIT 31.2 % (37-47); HEMOGLOBIN 9.7 g/dL (12.0-16.0); MEAN CELL VOLUME 94.8 fL (80-100); MEAN CORPUSCULAR HEMOGLOBIN 29.5 pg (25-34); MEAN CORPUSCULAR HGB CONC 31.1 g/dl (32-36); MEAN PLATELET VOLUME 10.1 fL (7.4-10.4); NUCLEATED RED BLOOD CELL ABS 0.02 K/uL (0-0); PLATELET COUNT 165 K/uL (130-400); RED CELL DISTRIBUTION WIDTH CV 16.5 % (11.5-14.5); RED CELL DISTRIBUTION WIDTH SD 56.7 fL (36.4-46.3); WHITE BLOOD COUNT 5.06 K/uL (4.8-10.8)
[2018-03-30 07:26] LABS: CREATININE 0.7 mg/dl (0.60-1.20); POTASSIUM 3.6 mmol/L (3.5-5.1)
[2018-03-30] MEDS: AMIODARONE 200 MG TAB PO SCH (07:30)
[2018-03-30] MEDS: NYSTATIN POWDER 15GM BTL EXT SCH ×3 (08:52→21:24)
[2018-03-30] MEDS: LEVOTHYROXINE SODIUM INJ 50 MCG in SYRINGE 0 ML IV SCH (08:52)
[2018-03-30] MEDS: METHYLPREDNISOLONE IV 20 MG in SYRINGE 0 ML IV SCH ×2 (08:52→21:24)
[2018-03-30] MEDS: PANTOprazole INJ 40 MG in SYRINGE 0 ML IV SCH (08:52)
[2018-03-30] MEDS: D5W AND 1/2NSS + 20MEQ KCL 1,000 ML IV SCH (12:50)
[2018-03-30] MEDS: METOCLOPRAMIDE HCL INJ 5 MG/ML 2 ML VIAL IV. SCH ×3 (12:56→23:53)
[2018-03-30] MEDS ORDERED: PEPTAMEN 1.5 CAL 1000ML BAG NG SCH (13:00)
--- NOTE | 2018-03-30 13:20 | Pulmonology Progress Note ---
Pulmonary Progress Note Date of Service Mar 30, 2018. Attending Dr. Oleary Subjective The patient continued to do poorly clinically however she is more awake today and following commands. No fever was reported. No leak from the trach site. The patient continued to have distended abdomen but less than it was yesterday. The patient has NG tube with suction. Objective Patient was stable saturations and notable tracheal aspirate on tracheal suctioning: Was asleep when I walked in the room showing no signs of respiratory insufficiency PmHx: Pulmonary embolism, sleep apnea/OHV, COPD, oxygen dependent 2-5L, diaphragmatic insufficiency/status post fundoplication, steroid-induced myopathy , orthostatic hypotension, hypertension, sclerotic aortic valve, chronic lymphedema, paroxysmal atrial fibrillation, chronic shortness of breath, C diff positive, recurrent UTIs Vital Signs/Physical Exam: SaO2: 90-97% on Venti-mask 21-35% Tmax: 37.2 Neck: Fresh tracheostomy minimal bleeding no signs of breakdown, mild sub-q fremitus Tracheostomy: Mucus secretions noted on tracheostomy suctioning Respiratory: Rhonchi appreciated right lower lobe Cardiac: S1-S2 Abdomen: Positive bowel sounds soft non-tender to deep palpation Labs: Procalcitonin: 0.5 CRP: 0.52 elevated Lactic acid: 1.0 WBC: 6K CT of the abdomen 03/21/2018: Shows continuation bilateral right greater than left atelectasis, no acute changes Urine: Rabia Glabrata Tracheal Aspirate: Staphylococcus Aureus Current Pulmonary Medications/antibiotics/antifungals: 1. Methylprednisolone 40 mg IV daily 2. Caspofungin 50 mg Q 24 (Day#: 3) 3. Spiriva 2 puffs b.i.d. 4. Pantoprazole 40 mg q.day 5. Duo nebs q.6 hours 6. Vancomycin (Day#: 2) 7. Cefepime (Day#: 2) Microbiology URINE: (07/24/15) Escherichia coli (09/01/15) Enterococcus faecalis (12/08/15) Lactobacillus species (11/25/16) Citrobacter species (07/07/17) Escherichia coli (07/24/17) Escherichia coli (03/20/18) Rabia Glabrata Respiratory Bronchial washing (06/29/2010) MRSA Bronchial washing left upper lobe (01/25/16) Fungal Species Right lower lobe bronchial washing (06/30/16) Fungal Species Bronchial washing right middle lobe (11/28/16) MRSA Bronchial washing right middle (01/15/17) Fungal Species Bronchial washing right and left lower lobe (10/09/2017) Bordetella Bronchiseptica Tracheal Aspirate (03/24/18): Staphylococcus Aureus Blood (04/24/16) Propionibacterium acnes Skin (04/17/17) right lower extremity: Pseudomonas aeruginosa, Enterococcus faecalis Stool C. difficile testing for 06/07/2018: Positive Physical exam on 03/26/2018 showed low-grade temperature yesterday, S1-S2 regular rate and rhythm, she does have rhonchi bilaterally, copious amount of secretions from the tracheostomy tube, edema in the periphery, abdomen is benign. Physical exam on 03/27/2018 showed no fever, vital signs are stable, no stridor, distant rhonchi bilaterally, remains with moderate amount of secretions, abdomen is nontender but soft, vague pain mainly on the left and right lower quadrant, minimal edema in the periphery. Physical exam on 03/28/2018 showed afebrile patient, vital signs are stable, no stridor, rhonchi bilaterally, S1 S2 regular rate and rhythm, trach site appeared well maintained. Abdomen is distended tympanic. Edema in the periphery with skin changes due to chronic steroids use. Physical exam on 03/29/2018 showed stable vital signs, S1-S2 regular rate and rhythm, trach site appears well-maintained, subcu emphysema is improving, distant breath sounds bilaterally, abdomen remains distended and tympanic, umbilical hernia, edema in the periphery, cushingoid type. KUB was reviewed after placement of NG tube which showed the tip of the NG tube is sub-phrenic. Physical exam on 03/30/2018 showed vital signs are stable, S1-S2 regular rate and rhythm, less secretions from the tracheostomy tube noted, subcu emphysema almost resolved, no stridor, rhonchi bilaterally, abdomen is slightly distended with umbilical hernia, tympanic, edema in the periphery. Her laboratory also showed no leukocytosis, no new organism, she does have MRSA in the sputum. Assessment & Plan 1. Morbid obesity with BMI more than 30. 2. Obstructive sleep apnea with CO2 retention. 3. COPD with cor pulmonale. 4. Acute on chronic respiratory failure, currently with tracheostomy tube. 5. A. fib with RVR. 6. Aspiration pneumonitis. 7. Subcu emphysema, iatrogenic, resolving. 8. Mild CHF with bilateral pleural effusion. 9. chronic hypercapnic respiratory failure. 10. Diaphragm dysfunction status post diaphragm plication. 11. Developing ileus versus partial small bowel obstruction. 12. 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 Plan: 1. Continue with Vanco and caspofungin, stop date per infectious disease. 2. Continue Solu-Medrol 20 mg IV every 12 hours, once she is able to tolerate the NG tube feeding, I would change her to prednisone 40 mg with taper very slowly. 3. Nutrition consult to start the patient on trickle tube feed. 4. Continue DuoNeb. 5. I am not sure what type of allergy the patient has to Reglan however I will start her on Reglan due to her history of gastroparesis. I would watch for side effects such as anticholinergic effect, seizure activity, tremor. 6. Palliative care consult. 7. Address the CODE STATUS. 8. I have discussed the case with Dr. Mann, he is in agreement with the plan, appreciate his input. 9. Apparently, the patient declined the placement of J-tube. However my experience with this is closer that she has changed her decision in the past on several issues. 10. If the patient declined J-tube placement, the next step would be to change the cuffed tracheostomy tube to an uncuffed and allow the patient to be fed orally. Regardless of the risk of her aspiration with the understanding that the patient is terminal. Thank you, will follow. Data Medications: Current Inpatient Medications Medications (Trade) Dose Ordered Sig/Natasha Route Start Time Stop Time Status Last Admin Dose Admin Acetaminophen (Tylenol Tab) 650 mg Q4H PRN PO 03/15/18 18:30 04/14/18 18:29 Future Hold 03/19/18 20:01 650 MG Al Hydrox/Mg Hydrox/Simethicone (Maalox Max Susp) 15 ml Q4H PRN PO 03/15/18 18:30 04/14/18 18:29 Magnesium Hydroxide (Milk Of Magnesia Susp) 30 ml Q12H PRN PO 03/15/18 18:30 04/14/18 18:29 Ondansetron HCl (Zofran Inj) 4 mg Q6H PRN IV 03/15/18 18:30 04/14/18 18:29 Albuterol Sulfate (Ventolin 0.083% 2.5MG/3ML Neb) 2.5 mg Q4H PRN INH 03/15/18 18:30 04/14/18 18:29 Albuterol/ Ipratropium (Duoneb) 3 ml Q6R NEB 03/15/18 21:00 04/14/18 20:59 03/30/18 07:09 3 ML Butalbital/ Aspirin/Caffeine (Fiorinal Tab/ CAP) 1 tab Q4 PRN PO 03/15/18 20:00 04/14/18 19:59 Future Hold 03/17/18 08:17 1 TAB Calcitriol (Rocaltrol Cap) 0.25 mcg DAILY PO 03/16/18 09:00 04/15/18 08:59 Future Hold 03/24/18 11:37 0.25 MCG Cholecalciferol (Vitamin D Tab) 1,000 inter.unit DAILY PO 03/16/18 09:00 04/15/18 08:59 Future Hold 03/24/18 11:38 1,000 INTER.UNIT Citalopram Hydrobromide (celeXA TAB) 30 mg DAILY PO 03/16/18 09:00 04/15/18 08:59 Future Hold 03/24/18 11:35 30 MG Diclofenac Sodium (Voltaren 1% Top Gel) 1 appln QID PRN EXT 03/15/18 19:30 04/14/18 19:29 03/18/18 08:30 1 APPLN Gabapentin (Neurontin Cap) 300 mg BID PO 03/15/18 21:00 04/14/18 20:59 Future Hold 03/24/18 11:36 300 MG Levothyroxine Sodium (Synthroid Tab) 100 mcg DAILYBB PO 03/16/18 06:00 04/15/18 06:59 Future Hold 03/23/18 05:55 100 MCG Lorazepam (Ativan Tab) 0.25 mg for mild anxiety/ sl... Q6 PRN PO 03/15/18 18:30 04/14/18 18:29 Future Hold 03/18/18 21:12 0.25 MG Nystatin (Mycostatin Powder) 1 appln TID EXT 03/15/18 21:00 04/14/18 20:59 03/30/18 12:50 1 APPLN Ropinirole HCl (Requip Tab) 0.5 mg HS PO 03/15/18 21:00 04/14/18 20:59 Future Hold 03/22/18 21:06 0.5 MG Simvastatin (Zocor Tab) 20 mg HS PO 03/15/18 21:00 04/14/18 20:59 Future Hold 03/22/18 21:06 20 MG Sucralfate (Carafate Susp) 1 gm QID PO 03/15/18 21:00 04/14/18 20:59 Future Hold 03/24/18 12:22 1 GM Tramadol HCl (Ultram Tab) 50 mg Q6H PRN PO 03/15/18 18:30 04/14/18 18:29 Future Hold 03/22/18 11:41 50 MG Apixaban (Eliquis Tab) 5 mg BID PO 03/15/18 21:00 04/14/18 20:59 Future Hold 03/19/18 08:54 5 MG Calcium Carbonate (oS-Imsael 500 TAB) 2,500 mg HS PO 03/15/18 21:00 04/14/18 20:59 Future Hold 03/22/18 21:07 2,500 MG Cyanocobalamin (Vitamin B-12 Tab) 1,000 mcg QAM PO 03/16/18 09:00 04/15/18 08:59 Future Hold 03/24/18 11:39 1,000 MCG Pantoprazole Sodium (Protonix Tab) 40 mg QAM PO 03/16/18 09:00 04/15/18 08:59 Future Hold 03/24/18 11:37 40 MG Ferrous Sulfate (Feosol Tab) 325 mg DAILY PO 03/16/18 09:00 04/15/18 08:59 Future Hold 03/24/18 11:36 325 MG Miscellaneous Information (Order Awaiting Action) 1 ea QS N/A 03/16/18 00:00 04/15/18 00:00 03/18/18 18:49 1 EA Potassium Chloride (Klor-Con M10) 20 meq DAILY PO 03/16/18 09:00 04/15/18 08:59 Future Hold 03/24/18 11:36 20 MEQ Glucose (Glucose 40% Gel) 15-30 GRAMS 15 GRAMS... UD PRN PO 03/15/18 19:00 04/14/18 18:59 Glucose (Glucose Chew Tab) 4-8 Tablets 4 Tabl... UD PRN PO 03/15/18 19:00 04/14/18 18:59 Dextrose (Dextrose 50% 50ML Syringe) 25-50ML 25ML FOR ... UD PRN IV 03/15/18 19:00 04/14/18 18:59 Glucagon (Glucagon Inj) 1 mg UD PRN SQ 03/15/18 19:00 04/14/18 18:59 Carbohydrates (Carbohydrates For Hypoglycemia) 15-30 GRAMS 15 grams if BSG 54-69... UD PRN PO 03/15/18 19:00 04/14/18 18:59 Clonidine HCl (Catapres Tab) 0.1 mg QAM PO 03/18/18 09:00 04/17/18 08:59 Future Hold 03/24/18 11:35 0.1 MG Heparin Sodium (Porcine) (Heparin 10 Unit/ ml 5 ml Flush) 5 ml PRN PRN FLUSH 03/20/18 00:30 04/19/18 00:29 Enoxaparin Sodium (Lovenox Inj) 80 mg Q12 SQ 03/20/18 16:00 04/19/18 20:59 Future Hold 03/22/18 08:22 80 MG Amiodarone HCl (Cordarone Tab) 200 mg DAILY PO 03/29/18 09:00 04/28/18 08:59 Non-Formulary Medication (Non-Formulary Patient'S Own Med) 1 ea DAILY PO 03/22/18 09:00 04/21/18 08:59 03/24/18 11:37 1 EA Prednisone (PredniSONE TAB) 30 mg DAILY PO 03/22/18 09:00 04/17/18 08:59 Future Hold 03/22/18 10:45 30 MG Hydromorphone HCl (Dilaudid Inj) 0.25 mg Q1H PRN IV 03/23/18 11:30 04/06/18 11:29 03/30/18 12:49 0.25 MG Vancomycin HCl (Consult) 1 ea UD PRN N/A 03/24/18 11:00 04/23/18 10:59 Polyethylene (Miralax Powder Packet) 17 gm DAILY PO 03/25/18 09:00 04/14/18 18:29 Future Hold Senna (Senokot Tab) 17.2 mg HS PO 03/24/18 21:00 04/23/18 20:59 Future Hold Acetaminophen 100 ml @ 400 mls/hr Q8H PRN IV 03/25/18 15:45 04/24/18 15:44 03/29/18 09:02 400 MLS/HR Insulin Aspart (novoLOG ASPART) SLIDING SCALE If C... Q6 SC 03/26/18 00:00 04/25/18 00:00 03/30/18 00:24 1 UNITS Potassium Chloride/Dextrose/ Sod Cl 1,000 ml @ 75 mls/hr [id number] IV 03/26/18 10:00 04/25/18 09:59 03/30/18 12:50 75 MLS/HR Vancomycin HCl 1250 mg/Sodium Chloride 275 ml @ 125 mls/hr Q18H IV 03/27/18 06:00 04/03/18 05:59 03/30/18 05:50 125 MLS/HR Levothyroxine Sodium 50 mcg/ Syringe 2.5 ml @ 2 mls/min DAILY@09 IV 03/27/18 09:00 04/26/18 08:59 03/30/18 08:52 2 MLS/MIN Pantoprazole Sodium 40 mg/ Syringe 10 ml @ 5 mls/min DAILY@11 IV 03/27/18 11:00 04/26/18 10:59 03/30/18 08:52 5 MLS/MIN Methylprednisolone Sodium Succinate 20 mg/Syringe 0.32 ml @ 1.5 mls/min Q12H IV 03/27/18 21:00 04/26/18 20:59 03/30/18 08:52 1.5 MLS/MIN Lorazepam (Ativan Inj) 0.5 mg Q6H PRN IV 03/27/18 18:15 04/26/18 18:14 03/30/18 00:21 0.5 MG Lorazepam 0.5 mg/ Syringe 1 ml @ 1 mls/min Q6H PRN IV 03/27/18 18:45 04/26/18 18:44 Metoclopramide HCl (Reglan Inj) 5 mg Q6H IV. 03/30/18 12:00 04/29/18 11:59 03/30/18 12:56 5 MG Enteral Nutritional Formula (Peptamen 1.5) 1,000 ml UD NG 03/30/18 13:00 04/29/18 12:59 Vital Signs: Date Time Temp Pulse Resp B/P (MAP) Pulse Ox O2 Delivery O2 Flow Rate FiO2 03/30/18 11:26 37.0 82 18 144/77 (99) 98 Trach Collar 03/30/18 08:15 Trach Collar 5.0 03/30/18 07:47 37.2 82 20 147/84 (105) 100 Trach Collar 5.0 03/30/18 07:15 77 16 99 BiPAP/CPAP 28 03/30/18 07:15 77 99 28 03/30/18 03:08 37.0 89 18 123/71 (88) 99 Trach Collar 03/30/18 02:18 80 100 28 03/30/18 02:02 80 18 100 BiPAP/CPAP 28 03/29/18 23:59 BiPAP 28 03/29/18 23:29 74 100 28 03/29/18 22:55 36.8 73 18 130/74 (92) 96 Trach Collar 03/29/18 19:30 37.0 81 18 160/77 (104) 100 Trach Collar 03/29/18 19:00 80 20 100 BiPAP/CPAP 28 03/29/18 19:00 80 100 28 03/29/18 16:47 162/94 (116) 03/29/18 16:00 BiPAP 6.0 28 Trach Collar 03/29/18 15:33 37.3 82 20 176/100 (125) 98 Trach Collar 03/29/18 14:17 72 22 100 BiPAP/CPAP 28 03/29/18 14:17 72 100 28 Laboratory Results: Last 24 Hours Test 03/29/18 18:00 03/30/18 00:01 03/30/18 05:49 03/30/18 06:31 Bedside Glucose 203 mg/dl 183 mg/dl 163 mg/dl White Blood Count 5.06 K/uL Red Blood Count 3.29 M/uL Hemoglobin 9.7 g/dL Hematocrit 31.2 % Mean Corpuscular Volume 94.8 fL Mean Corpuscular Hemoglobin 29.5 pg Mean Corpuscular Hemoglobin Concent 31.1 g/dl RDW Standard Deviation 56.7 fL RDW Coefficient of Variation 16.5 % Platelet Count 165 K/uL Mean Platelet Volume 10.1 fL Nucleated RBC Absolute Count (auto) 0.02 K/uL Nucleated Red Blood Cells % 0.3 % Sodium Level 138 mmol/L Potassium Level 3.6 mmol/L Chloride Level 106 mmol/L Carbon Dioxide Level 24 mmol/L Anion Gap 8.0 mmol/L Blood Urea Nitrogen 8 mg/dl Creatinine 0.70 mg/dl Est Creatinine Clear Calc Drug Dose 65.7 ml/min Estimated GFR () 94.2 Estimated GFR (Non- 81.3 BUN/Creatinine Ratio 12.0 Random Glucose 154 mg/dl Calcium Level 7.0 mg/dl Phosphorus Level 2.0 mg/dl
--- NOTE | 2018-03-30 19:41 | Progress Note ---
Subjective Date of Service: Mar 30, 2018. Subjective Pt evaluation today including: conversation w/ patient, conversation w/ family (Delores, daughter, at bedside), physical exam, chart review, lab review, review of inpatient medication list Pain: neck, abd - improved PO Intake: tolerated popcicle with speech therapy Voiding: christian catheter in place tele stable overnight very awake, alert today again communicates that she does not want to pursue a feeding tube (PEG or j- tube) passing flatus no emesis; NG tube in place but now clamped Problem List Medical Problems: (1) Cervical strain Status: Acute (2) Contusion of multiple sites Status: Acute (3) COPD exacerbation Status: Acute (4) Fall Status: Acute (5) Fall from chair, initial encounter Status: Acute (6) Fatigue Status: Acute (7) Head injury Status: Acute (8) Head injury Status: Acute (9) Hip pain Status: Acute (10) Hypocalcemia Status: Acute (11) Hypoxia Status: Acute (12) Hypoxia Status: Acute (13) Lower extremity edema Status: Acute (14) PNA (pneumonia) Status: Acute (15) Pneumonia Status: Acute (16) Pneumonitis Status: Acute (17) Reactive airway disease Status: Acute (18) Right flank pain Status: Acute (19) Sepsis Status: Acute (20) Sepsis Status: Acute (21) Syncope Status: Acute (22) Traumatic compression fracture of third thoracic vertebra Status: Acute (23) Vaginal yeast infection Status: Acute (24) Weakness Status: Acute (25) Yeast vaginitis Status: Acute Review of Systems Constitutional: No fever Respiratory: + cough, No shortness of breath Cardiac: No chest pain, No orthopnea Abdomen: No pain, No nausea Objective Vital Signs Date Time Temp Pulse Resp B/P (MAP) Pulse Ox O2 Delivery O2 Flow Rate FiO2 03/30/18 19:11 102 20 98 Trach Collar 6.0 28 03/30/18 18:45 37.3 82 15 156/97 (116) 100 Trach Collar 5.0 28 03/30/18 16:01 37.2 79 15 127/77 (94) 97 Trach Collar 5.0 28 03/30/18 14:25 84 18 100 Trach Collar 6.0 28 03/30/18 11:26 37.0 82 18 144/77 (99) 98 Trach Collar 03/30/18 08:15 Trach Collar 5.0 03/30/18 07:47 37.2 82 20 147/84 (105) 100 Trach Collar 5.0 03/30/18 07:15 77 16 99 BiPAP/CPAP 28 03/30/18 07:15 77 99 28 03/30/18 03:08 37.0 89 18 123/71 (88) 99 Trach Collar 03/30/18 02:18 80 100 28 03/30/18 02:02 80 18 100 BiPAP/CPAP 28 03/29/18 23:59 BiPAP 28 03/29/18 23:29 74 100 28 03/29/18 22:55 36.8 73 18 130/74 (92) 96 Trach Collar 03/29/18 19:30 37.0 81 18 160/77 (104) 100 Trach Collar Physical Exam General Appearance: no apparent distress, + pertinent finding (best she has looked in several days) ENT: pharynx normal Neck: + pertinent finding (trach in place, white secretions noted at entrance of trach) Respiratory/Chest: no respiratory distress, no accessory muscle use, + decreased breath sounds (bases) Cardiovascular: regular rate, rhythm, no gallop, no murmur Abdomen: normal bowel sounds, no organomegaly, + distended (but improved from yesterday's exam), + hernia (umbilical - reducible) Extremities: no pedal edema Neurologic/Psychiatric: alert, oriented x 3 Skin: + pertinent finding (PICC line, RUE - clean) Laboratory Results Last 24 Hours Test 03/30/18 00:01 03/30/18 05:49 03/30/18 06:31 03/30/18 12:10 Bedside Glucose 183 mg/dl 163 mg/dl 157 mg/dl White Blood Count 5.06 K/uL Red Blood Count 3.29 M/uL Hemoglobin 9.7 g/dL Hematocrit 31.2 % Mean Corpuscular Volume 94.8 fL Mean Corpuscular Hemoglobin 29.5 pg Mean Corpuscular Hemoglobin Concent 31.1 g/dl RDW Standard Deviation 56.7 fL RDW Coefficient of Variation 16.5 % Platelet Count 165 K/uL Mean Platelet Volume 10.1 fL Nucleated RBC Absolute Count (auto) 0.02 K/uL Nucleated Red Blood Cells % 0.3 % Sodium Level 138 mmol/L Potassium Level 3.6 mmol/L Chloride Level 106 mmol/L Carbon Dioxide Level 24 mmol/L Anion Gap 8.0 mmol/L Blood Urea Nitrogen 8 mg/dl Creatinine 0.70 mg/dl Est Creatinine Clear Calc Drug Dose 65.7 ml/min Estimated GFR () 94.2 Estimated GFR (Non- 81.3 BUN/Creatinine Ratio 12.0 Random Glucose 154 mg/dl Calcium Level 7.0 mg/dl Phosphorus Level 2.0 mg/dl Test 03/30/18 16:47 Bedside Glucose 165 mg/dl Assessment and Plan 83yo female: 1. b/l pneumonia - 2nd to MRSA - day #7 of therapy. Continue vanco for MRSA. Plan 10 days of Rx. 2. new-onset a. fib - converted to NSR earlier this stay with amiodarone. Resume amiodarone. Resume eliquis. 3. ileus - improving. NG tube clamped to allow periodic oral nutrition. She refused enteral feedings today via the NG tube. Reglan started by Dr. Oleary. Passing flatus. Cont IV fluids but reduce rate to 50cc/hr. 4. acute/chronic hypoxic respiratory failure - s/p trach placement. Acute component 2nd to #1. Overall stable and improved. 5. dysphagia - patient again reporting she does NOT want permanent feeding tube. Speech re-evaluated today w/ bedside swallow and patient placed back on thickened liquids. 6. protein calorie malnutrition, moderate degree - again she is refusing permanent feeding tube. Clears started by speech therapy. Hopefully can advance this as ileus resolves. 7. COPD with mild exacerbation - remains on IV steroids; pulmonary managing. Continue pulmonary toilet, nebs, etc. Stable. 8. H/O DVTs - noted; resume eliquis. 9. CKD stage 3 - creatinine stable. 10. Hypothyroidism - compensated; cont synthroid. 11. T2DM - controlled. 12. chronic diastolic CHF - compensated 13. right-sided elevated Hemidiaphragm - S/P Plication in the past. 14. depression - resume SSRI now that she can take PO. 15. HTN - controlled 16. FEN - continue IVF but cut fluid rate; clear liquids; phos will improve as nutrition improves. 17. DVT proph - resume eliquis. Delores, daughter, updated at bedside she is supportive of her mother's desire NOT to have a feeding tube awaiting insurance determination for LTACH Continued [facility] stay due to: inadequate po fluid intake, inadequate oral pain control, voiding difficulties, ambulation difficulties, multiple IV medications needed, other (ileus, pneumonia, etc) Discharge planning: acute transfer ([facility] - [place])
[2018-03-30] MEDS: APIXABAN 2.5 MG TAB PO SCH (21:36)
[2018-03-30] MEDS ORDERED: VANCOMYCIN TROUGH ONE (23:30)
[2018-03-31] VITALS (14 sets, daily range): BP systolic 114–187; BP diastolic 69–94; PULSE 62–111; TEMP 36.4–37.1; O2SAT 93–100
[2018-03-31] MEDS: ALBUT/IPRATROP 3MG/0.5MG NEB 3 ML VIAL NEB SCH ×4 (01:50→19:47)
[2018-03-31] MEDS: LORAZEPAM 2 MG/ML 1 ML VIAL IV PRN (03:54)
[2018-03-31] MEDS: HYDROmorphone INJ 0.5 MG/0.5 ML SYR IV PRN ×4 (04:34→22:49)
[2018-03-31] MEDS: INSULIN ASPART 100 UNITS/ML 3 ML PEN SC SCH ×3 (05:59→17:10)
[2018-03-31] MEDS: METOCLOPRAMIDE HCL INJ 5 MG/ML 2 ML VIAL IV. SCH ×4 (06:01→22:49)
[2018-03-31] MEDS: D5W AND 1/2NSS + 20MEQ KCL 1,000 ML IV SCH (06:01)
[2018-03-31] MEDS: LEVOTHYROXINE 100 MCG TAB PO SCH (06:08)
[2018-03-31] MEDS: METHYLPREDNISOLONE IV 20 MG in SYRINGE 0 ML IV SCH (08:56)
[2018-03-31] MEDS: AMIODARONE 200 MG TAB PO SCH (08:56)
[2018-03-31] MEDS: NYSTATIN POWDER 15GM BTL EXT SCH ×3 (08:56→21:11)
[2018-03-31] MEDS: PANTOprazole INJ 40 MG in SYRINGE 0 ML IV SCH (08:56)
[2018-03-31] MEDS: APIXABAN 2.5 MG TAB PO SCH ×2 (08:57→21:12)
[2018-03-31] MEDS: CITALOPRAM 20 MG TAB PO SCH (09:13)
--- NOTE | 2018-03-31 16:20 | Pulmonology Progress Note ---
Pulmonary Progress Note Date of Service Mar 31, 2018. Attending Dr. Oleary Subjective The patient is more awake today, however she stated to several staff members that she does not want to continue living like this, she is heading towards comfort measures instead of under going aggressive treatment Objective Patient was stable saturations and notable tracheal aspirate on tracheal suctioning: Was asleep when I walked in the room showing no signs of respiratory insufficiency PmHx: Pulmonary embolism, sleep apnea/OHV, COPD, oxygen dependent 2-5L, diaphragmatic insufficiency/status post fundoplication, steroid-induced myopathy , orthostatic hypotension, hypertension, sclerotic aortic valve, chronic lymphedema, paroxysmal atrial fibrillation, chronic shortness of breath, C diff positive, recurrent UTIs Vital Signs/Physical Exam: SaO2: 90-97% on Venti-mask 21-35% Tmax: 37.2 Neck: Fresh tracheostomy minimal bleeding no signs of breakdown, mild sub-q fremitus Tracheostomy: Mucus secretions noted on tracheostomy suctioning Respiratory: Rhonchi appreciated right lower lobe Cardiac: S1-S2 Abdomen: Positive bowel sounds soft non-tender to deep palpation Labs: Procalcitonin: 0.5 CRP: 0.52 elevated Lactic acid: 1.0 WBC: 6K CT of the abdomen 03/21/2018: Shows continuation bilateral right greater than left atelectasis, no acute changes Urine: Rabia Glabrata Tracheal Aspirate: Staphylococcus Aureus Current Pulmonary Medications/antibiotics/antifungals: 1. Methylprednisolone 40 mg IV daily 2. Caspofungin 50 mg Q 24 (Day#: 3) 3. Spiriva 2 puffs b.i.d. 4. Pantoprazole 40 mg q.day 5. Duo nebs q.6 hours 6. Vancomycin (Day#: 2) 7. Cefepime (Day#: 2) Microbiology URINE: (07/24/15) Escherichia coli (09/01/15) Enterococcus faecalis (12/08/15) Lactobacillus species (11/25/16) Citrobacter species (07/07/17) Escherichia coli (07/24/17) Escherichia coli (03/20/18) Rabia Glabrata Respiratory Bronchial washing (06/29/2010) MRSA Bronchial washing left upper lobe (01/25/16) Fungal Species Right lower lobe bronchial washing (06/30/16) Fungal Species Bronchial washing right middle lobe (11/28/16) MRSA Bronchial washing right middle (01/15/17) Fungal Species Bronchial washing right and left lower lobe (10/09/2017) Bordetella Bronchiseptica Tracheal Aspirate (03/24/18): Staphylococcus Aureus Blood (04/24/16) Propionibacterium acnes Skin (04/17/17) right lower extremity: Pseudomonas aeruginosa, Enterococcus faecalis Stool C. difficile testing for 06/07/2018: Positive Physical exam on 03/26/2018 showed low-grade temperature yesterday, S1-S2 regular rate and rhythm, she does have rhonchi bilaterally, copious amount of secretions from the tracheostomy tube, edema in the periphery, abdomen is benign. Physical exam on 03/27/2018 showed no fever, vital signs are stable, no stridor, distant rhonchi bilaterally, remains with moderate amount of secretions, abdomen is nontender but soft, vague pain mainly on the left and right lower quadrant, minimal edema in the periphery. Physical exam on 03/28/2018 showed afebrile patient, vital signs are stable, no stridor, rhonchi bilaterally, S1 S2 regular rate and rhythm, trach site appeared well maintained. Abdomen is distended tympanic. Edema in the periphery with skin changes due to chronic steroids use. Physical exam on 03/29/2018 showed stable vital signs, S1-S2 regular rate and rhythm, trach site appears well-maintained, subcu emphysema is improving, distant breath sounds bilaterally, abdomen remains distended and tympanic, umbilical hernia, edema in the periphery, cushingoid type. KUB was reviewed after placement of NG tube which showed the tip of the NG tube is sub-phrenic. Physical exam on 03/30/2018 showed vital signs are stable, S1-S2 regular rate and rhythm, less secretions from the tracheostomy tube noted, subcu emphysema almost resolved, no stridor, rhonchi bilaterally, abdomen is slightly distended with umbilical hernia, tympanic, edema in the periphery. Her laboratory also showed no leukocytosis, no new organism, she does have MRSA in the sputum. Physical exam on 03/31/2018 showed vital signs are stable, S1-S2, A. fib, tracheostomy site is well maintained, remains with significant secretions and suctioned at the bedside, rhonchi bilaterally, abdomen is less distended, nontender, trace edema in the periphery. Glucose remains elevated. Assessment & Plan 1. Morbid obesity with BMI more than 30. 2. Obstructive sleep apnea with CO2 retention. 3. COPD with cor pulmonale. 4. Acute on chronic respiratory failure, currently with tracheostomy tube. 5. A. fib with RVR. 6. Aspiration pneumonitis. 7. Subcu emphysema, iatrogenic, resolving. 8. Mild CHF with bilateral pleural effusion. 9. chronic hypercapnic respiratory failure. 10. Diaphragm dysfunction status post diaphragm plication. 11. Developing ileus versus partial small bowel obstruction. 12. 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 Plan: 1. Continue with Vanco and caspofungin, stop date per infectious disease. 2. Continue Solu-Medrol 20 mg IV every 12 hours, the patient pulled her NG tube and cannot be given prednisone that way. 3. Given the fact the patient lost her NG tube, will deflate the cough and start oral intake, hopefully the patient will not have an event of aspiration. Patient remains at risk for it. 4. Continue DuoNeb. 5. I am not sure what type of allergy the patient has to Reglan however I will start her on Reglan due to her history of gastroparesis. She seems to tolerate Reglan. 6. Palliative care consult. 7. Address the CODE STATUS. 8. I have discussed the case with Dr. Mann, the discussion took place with the patient as well. The nursing staff also were at the bedside. The patient is leaning towards comfort measures. We will await the arrival of her daughter and then discuss further the next step. Agree with palliation given this patient prolonged hospitalization and suffering. She does not seem to have endpoint given her progressive illness. 9. Agree with the patient on withholding any invasive tube feeding. 10. The trach can be changed to non-cuffed in an effort to alleviate the patient's symptoms while she is swallowing. Discussed with the staff at the bedside. Data Medications: Current Inpatient Medications Medications (Trade) Dose Ordered Sig/Natasha Route Start Time Stop Time Status Last Admin Dose Admin Acetaminophen (Tylenol Tab) 650 mg Q4H PRN PO 03/15/18 18:30 04/14/18 18:29 Future Hold 03/19/18 20:01 650 MG Al Hydrox/Mg Hydrox/Simethicone (Maalox Max Susp) 15 ml Q4H PRN PO 03/15/18 18:30 04/14/18 18:29 Magnesium Hydroxide (Milk Of Magnesia Susp) 30 ml Q12H PRN PO 03/15/18 18:30 04/14/18 18:29 Ondansetron HCl (Zofran Inj) 4 mg Q6H PRN IV 03/15/18 18:30 04/14/18 18:29 Albuterol Sulfate (Ventolin 0.083% 2.5MG/3ML Neb) 2.5 mg Q4H PRN INH 03/15/18 18:30 04/14/18 18:29 Albuterol/ Ipratropium (Duoneb) 3 ml Q6R NEB 03/15/18 21:00 04/14/18 20:59 03/31/18 14:12 3 ML Butalbital/ Aspirin/Caffeine (Fiorinal Tab/ CAP) 1 tab Q4 PRN PO 03/15/18 20:00 04/14/18 19:59 Future Hold 03/17/18 08:17 1 TAB Calcitriol (Rocaltrol Cap) 0.25 mcg DAILY PO 03/16/18 09:00 04/15/18 08:59 Future Hold 03/24/18 11:37 0.25 MCG Cholecalciferol (Vitamin D Tab) 1,000 inter.unit DAILY PO 03/16/18 09:00 04/15/18 08:59 Future Hold 03/24/18 11:38 1,000 INTER.UNIT Citalopram Hydrobromide (celeXA TAB) 30 mg DAILY PO 03/16/18 09:00 04/15/18 08:59 Future hold 03/31/18 09:13 30 MG Diclofenac Sodium (Voltaren 1% Top Gel) 1 appln QID PRN EXT 03/15/18 19:30 04/14/18 19:29 03/18/18 08:30 1 APPLN Gabapentin (Neurontin Cap) 300 mg BID PO 03/15/18 21:00 04/14/18 20:59 Future Hold 03/24/18 11:36 300 MG Levothyroxine Sodium (Synthroid Tab) 100 mcg DAILYBB PO 03/16/18 06:00 04/15/18 06:59 Future hold 03/31/18 06:08 100 MCG Lorazepam (Ativan Tab) 0.25 mg for mild anxiety/ sl... Q6 PRN PO 03/15/18 18:30 04/14/18 18:29 Future Hold 03/18/18 21:12 0.25 MG Nystatin (Mycostatin Powder) 1 appln TID EXT 03/15/18 21:00 04/14/18 20:59 03/31/18 13:50 1 APPLN Ropinirole HCl (Requip Tab) 0.5 mg HS PO 03/15/18 21:00 04/14/18 20:59 Future Hold 03/22/18 21:06 0.5 MG Simvastatin (Zocor Tab) 20 mg HS PO 03/15/18 21:00 04/14/18 20:59 Future Hold 03/22/18 21:06 20 MG Sucralfate (Carafate Susp) 1 gm QID PO 03/15/18 21:00 04/14/18 20:59 Future Hold 03/24/18 12:22 1 GM Tramadol HCl (Ultram Tab) 50 mg Q6H PRN PO 03/15/18 18:30 04/14/18 18:29 Future Hold 03/22/18 11:41 50 MG Apixaban (Eliquis Tab) 5 mg BID PO 03/15/18 21:00 04/14/18 20:59 Future hold 03/31/18 08:57 5 MG Calcium Carbonate (oS-Misael 500 TAB) 2,500 mg HS PO 03/15/18 21:00 04/14/18 20:59 Future Hold 03/22/18 21:07 2,500 MG Cyanocobalamin (Vitamin B-12 Tab) 1,000 mcg QAM PO 03/16/18 09:00 04/15/18 08:59 Future Hold 03/24/18 11:39 1,000 MCG Pantoprazole Sodium (Protonix Tab) 40 mg QAM PO 03/16/18 09:00 04/15/18 08:59 Future Hold 03/24/18 11:37 40 MG Ferrous Sulfate (Feosol Tab) 325 mg DAILY PO 03/16/18 09:00 04/15/18 08:59 Future Hold 03/24/18 11:36 325 MG Miscellaneous Information (Order Awaiting Action) 1 ea QS N/A 03/16/18 00:00 04/15/18 00:00 03/18/18 18:49 1 EA Potassium Chloride (Klor-Con M10) 20 meq DAILY PO 03/16/18 09:00 04/15/18 08:59 Future Hold 03/24/18 11:36 20 MEQ Glucose (Glucose 40% Gel) 15-30 GRAMS 15 GRAMS... UD PRN PO 03/15/18 19:00 04/14/18 18:59 Glucose (Glucose Chew Tab) 4-8 Tablets 4 Tabl... UD PRN PO 03/15/18 19:00 04/14/18 18:59 Dextrose (Dextrose 50% 50ML Syringe) 25-50ML 25ML FOR ... UD PRN IV 03/15/18 19:00 04/14/18 18:59 Glucagon (Glucagon Inj) 1 mg UD PRN SQ 03/15/18 19:00 04/14/18 18:59 Carbohydrates (Carbohydrates For Hypoglycemia) 15-30 GRAMS 15 grams if BSG 54-69... UD PRN PO 03/15/18 19:00 04/14/18 18:59 Clonidine HCl (Catapres Tab) 0.1 mg QAM PO 03/18/18 09:00 04/17/18 08:59 Future Hold 03/24/18 11:35 0.1 MG Heparin Sodium (Porcine) (Heparin 10 Unit/ ml 5 ml Flush) 5 ml PRN PRN FLUSH 03/20/18 00:30 04/19/18 00:29 Amiodarone HCl (Cordarone Tab) 200 mg DAILY PO 03/29/18 09:00 04/28/18 08:59 03/31/18 08:56 200 MG Non-Formulary Medication (Non-Formulary Patient'S Own Med) 1 ea DAILY PO 03/22/18 09:00 04/21/18 08:59 03/24/18 11:37 1 EA Prednisone (PredniSONE TAB) 30 mg DAILY PO 03/22/18 09:00 04/17/18 08:59 Future Hold 03/22/18 10:45 30 MG Hydromorphone HCl (Dilaudid Inj) 0.25 mg Q1H PRN IV 03/23/18 11:30 04/06/18 11:29 03/31/18 15:22 0.25 MG Vancomycin HCl (Consult) 1 ea UD PRN N/A 03/24/18 11:00 04/23/18 10:59 Polyethylene (Miralax Powder Packet) 17 gm DAILY PO 03/25/18 09:00 04/14/18 18:29 Future Hold Senna (Senokot Tab) 17.2 mg HS PO 03/24/18 21:00 04/23/18 20:59 Future Hold Acetaminophen 100 ml @ 400 mls/hr Q8H PRN IV 03/25/18 15:45 04/24/18 15:44 03/29/18 09:02 400 MLS/HR Insulin Aspart (novoLOG ASPART) SLIDING SCALE If C... Q6 SC 03/26/18 00:00 04/25/18 00:00 03/30/18 00:24 1 UNITS Potassium Chloride/Dextrose/ Sod Cl 1,000 ml @ 50 mls/hr Q20H IV 03/26/18 10:00 04/25/18 09:59 03/31/18 06:01 50 MLS/HR Vancomycin HCl 1250 mg/Sodium Chloride 275 ml @ 125 mls/hr Q18H IV 03/27/18 06:00 04/03/18 05:59 03/30/18 23:52 125 MLS/HR Pantoprazole Sodium 40 mg/ Syringe 10 ml @ 5 mls/min DAILY@11 IV 03/27/18 11:00 04/26/18 10:59 03/31/18 08:56 5 MLS/MIN Methylprednisolone Sodium Succinate 20 mg/Syringe 0.32 ml @ 1.5 mls/min Q12H IV 03/27/18 21:00 04/26/18 20:59 03/31/18 08:56 1.5 MLS/MIN Lorazepam (Ativan Inj) 0.5 mg Q6H PRN IV 03/27/18 18:15 04/26/18 18:14 03/31/18 03:54 0.5 MG Lorazepam 0.5 mg/ Syringe 1 ml @ 1 mls/min Q6H PRN IV 03/27/18 18:45 04/26/18 18:44 Metoclopramide HCl (Reglan Inj) 5 mg Q6H IV. 03/30/18 12:00 04/29/18 11:59 7/14/18 13:51 5 MG Enteral Nutritional Formula (Peptamen 1.5) 1,000 ml UD NG 03/30/18 13:00 04/29/18 12:59 I & O: 24-Hour Column 04/01/18 08:00 Intake Total 560 ml Output Total 750 ml Balance -190 ml Vital Signs: Date Time Temp Pulse Resp B/P (MAP) Pulse Ox O2 Delivery O2 Flow Rate FiO2 03/31/18 15:58 37.1 98 15 162/94 (116) 94 Trach Collar 6.0 28 03/31/18 14:12 62 20 97 Trach Collar 28 03/31/18 12:37 Trach Collar 03/31/18 10:59 36.6 80 15 144/72 (96) 96 Trach Collar 5.0 28 03/31/18 10:50 36.9 90 20 122/78 (93) 97 Trach Collar 5.0 03/31/18 08:30 Trach Collar 5.0 03/31/18 06:51 72 20 100 Trach Collar 28 03/31/18 03:07 36.4 92 19 114/72 (86) 93 Room Air 03/31/18 02:42 37.1 80 19 125/69 (87) 98 BiPAP 28 Trach Collar 03/31/18 01:54 81 100 28 03/31/18 01:52 80 23 97 BiPAP/CPAP 28 03/31/18 00:00 Trach Collar 5.0 03/30/18 23:10 37.1 91 15 165/81 (109) 99 Trach Collar 5.0 28 03/30/18 22:20 97 98 28 03/30/18 20:00 Trach Collar 5.0 03/30/18 19:11 102 20 98 Trach Collar 6.0 28 03/30/18 18:45 37.3 82 15 156/97 (116) 100 Trach Collar 5.0 28 Laboratory Results: Last 24 Hours Test 03/30/18 16:47 03/30/18 23:22 03/30/18 23:50 03/31/18 05:59 Bedside Glucose 165 mg/dl 129 mg/dl 163 mg/dl Vancomycin Level Trough 17.6 mcg/ml Test 03/31/18 11:02 Bedside Glucose 144 mg/dl
[2018-03-31] MEDS: VANCOMYCIN IV 1,250 MG in SODIUM CHLORIDE 0.9% 250ML 250 ML IV SCH (18:07)
--- NOTE | 2018-03-31 20:35 | Progress Note ---
Subjective Date of Service: Mar 31, 2018. Subjective Pt evaluation today including: conversation w/ patient, conversation w/ family (Delores, daughter, by phone), physical exam, chart review, lab review, conversation w/ oracle database consultant (pulmonary), review of inpatient medication list Pain: neck, abdomen PO Intake: tolerating PO albeit in small amounts Voiding: christian catheter in place tele stable overnight during the night the patient removed her NG tube and told staff that she simply wanted to she was found multiple times trying to remove her tracheostomy shortly after nursing shift change this am she also told the daytime nursing staff she wanted to I met with the patient at bedside during AM rounds; Dr. Oleary from pulmonary was there; her nurse was also in attendance I asked her the following - 1. was she tired of being in the hospital? she nodded "yes" 2. did she want to stop aggressive care? also nodded "yes" 3. did she want to go to [place] ([facility])? nodded "No" 4. was she wanting to ? "yes" this was witnessed by the above individuals Problem List Medical Problems: (1) Cervical strain Status: Acute (2) Contusion of multiple sites Status: Acute (3) COPD exacerbation Status: Acute (4) Fall Status: Acute (5) Fall from chair, initial encounter Status: Acute (6) Fatigue Status: Acute (7) Head injury Status: Acute (8) Head injury Status: Acute (9) Hip pain Status: Acute (10) Hypocalcemia Status: Acute (11) Hypoxia Status: Acute (12) Hypoxia Status: Acute (13) Lower extremity edema Status: Acute (14) PNA (pneumonia) Status: Acute (15) Pneumonia Status: Acute (16) Pneumonitis Status: Acute (17) Reactive airway disease Status: Acute (18) Right flank pain Status: Acute (19) Sepsis Status: Acute (20) Sepsis Status: Acute (21) Syncope Status: Acute (22) Traumatic compression fracture of third thoracic vertebra Status: Acute (23) Vaginal yeast infection Status: Acute (24) Weakness Status: Acute (25) Yeast vaginitis Status: Acute Review of Systems Respiratory: + cough, No shortness of breath Cardiac: No chest pain Abdomen: + pain Objective Vital Signs Date Time Temp Pulse Resp B/P (MAP) Pulse Ox O2 Delivery O2 Flow Rate FiO2 03/31/18 15:58 37.1 98 15 162/94 (116) 94 Trach Collar 6.0 28 03/31/18 14:12 62 20 97 Trach Collar 28 03/31/18 12:37 Trach Collar 03/31/18 10:59 36.6 80 15 144/72 (96) 96 Trach Collar 5.0 28 03/31/18 10:50 36.9 90 20 122/78 (93) 97 Trach Collar 5.0 03/31/18 08:30 Trach Collar 5.0 03/31/18 06:51 72 20 100 Trach Collar 28 03/31/18 03:07 36.4 92 19 114/72 (86) 93 Room Air 03/31/18 02:42 37.1 80 19 125/69 (87) 98 BiPAP 28 Trach Collar 03/31/18 01:54 81 100 28 03/31/18 01:52 80 23 97 BiPAP/CPAP 28 03/31/18 00:00 Trach Collar 5.0 03/30/18 23:10 37.1 91 15 165/81 (109) 99 Trach Collar 5.0 28 03/30/18 22:20 97 98 28 03/30/18 20:00 Trach Collar 5.0 03/30/18 19:11 102 20 98 Trach Collar 6.0 28 03/30/18 18:45 37.3 82 15 156/97 (116) 100 Trach Collar 5.0 28 Physical Exam General Appearance: no apparent distress, + obese, + pertinent finding ( cushingnoid face) ENT: pharynx normal Neck: + pertinent finding (trach with copious, thick secretions; neck without JVD) Respiratory/Chest: no respiratory distress, no accessory muscle use, + decreased breath sounds (bases) Cardiovascular: regular rate, rhythm, no gallop, no murmur Abdomen: no organomegaly, + abnormal bowel sounds (high pitched), + distended Extremities: no pedal edema Neurologic/Psychiatric: alert, + depressed affect, + pertinent finding (lucid, following all commands, answering all questions) Skin: + pertinent finding (PICC line, RUE, clean) Laboratory Results Last 24 Hours Test 03/30/18 16:47 03/30/18 23:22 03/30/18 23:50 03/31/18 05:59 Bedside Glucose 165 mg/dl 129 mg/dl 163 mg/dl Vancomycin Level Trough 17.6 mcg/ml Test 03/31/18 11:02 03/31/18 16:37 Bedside Glucose 144 mg/dl 172 mg/dl Assessment and Plan 83yo female: 1. b/l pneumonia - 2nd to MRSA - day #8 of therapy. Continue vanco for MRSA. Plan 10-14 days of Rx. Could always change to zyvox in marva of vanco. 2. new-onset a. fib - converted to NSR earlier this stay with amiodarone. Resumed amiodarone by mouth and eliquis. 3. ileus - improving; patient self-removed her NG tube last night. Has tolerated liquids with NG tube gone. Cont reglan IV. 4. acute/chronic hypoxic respiratory failure - s/p trach placement. Acute component 2nd to #1. Overall stable. 5. dysphagia - patient refusing permanent feeding tube. Speech re-evaluated her yesterday w/ bedside swallow and patient placed back on thickened liquids. Tolerating such thus far. 6. protein calorie malnutrition, moderate degree - again she is refusing permanent feeding tube. Clears started by speech therapy. Hopefully can advance diet tomorrow. 7. COPD with mild exacerbation - wean to prednisone 30mg daily in the AM; stop IV steroids. 8. H/O DVTs - noted; resumed eliquis. 9. CKD stage 3 - creatinine stable. BMP am. 10. Hypothyroidism - compensated; cont synthroid. 11. T2DM - controlled. 12. chronic diastolic CHF - compensated 13. right-sided elevated Hemidiaphragm - S/P Plication in the past. 14. depression - resumed SSRI. 15. HTN - controlled 16. FEN - stop fluids in am if PO intake is sufficient. BMP am. 17. DVT proph - resumed eliquis. 18. RLS - resume requip. 19. depression w/ thoughts of dying - resumed celexa. Delores, daughter, updated by phone today we plan to have large discussion tomorrow re: code status, goals of care ( ongoing Rx vs palliative vs other), disposition, etc Continued [facility] stay due to: inadequate po fluid intake, inadequate oral pain control, voiding difficulties, ambulation difficulties, multiple IV medications needed, other (ileus, pneumonia, etc) Discharge planning: uncertain
[2018-03-31] MEDS: ROPINIROLE HCL 0.25 MG TAB PO SCH (21:31)
[2018-03-31] MEDS: SENNA 8.6 MG TAB PO SCH (21:32)
[2018-03-31] MEDS: GABAPENTIN 300 MG CAP PO SCH (21:32)
[2018-04-01] VITALS (9 sets, daily range): BP systolic 110–152; BP diastolic 59–82; PULSE 73–90; TEMP 36.7–38; O2SAT 91–100
[2018-04-01] MEDS: INSULIN ASPART 100 UNITS/ML 3 ML PEN SC SCH ×5 (00:35→20:51)
[2018-04-01] MEDS: D5W AND 1/2NSS + 20MEQ KCL 1,000 ML IV SCH (00:35)
[2018-04-01] MEDS: ALBUT/IPRATROP 3MG/0.5MG NEB 3 ML VIAL NEB SCH ×4 (01:16→19:40)
[2018-04-01] MEDS: METOCLOPRAMIDE HCL INJ 5 MG/ML 2 ML VIAL IV. SCH ×4 (06:02→23:29)
[2018-04-01] MEDS: LEVOTHYROXINE 100 MCG TAB PO SCH (06:02)
[2018-04-01] MEDS ORDERED: NURSING VERBAL MED ORDER ONE (06:15)
[2018-04-01 06:55] LABS: CALCIUM 7.8 mg/dl (8.5-10.1); CREATININE 0.73 mg/dl (0.60-1.20); POTASSIUM 3.3 mmol/L (3.5-5.1)
[2018-04-01] MEDS: PANTOprazole INJ 40 MG in SYRINGE 0 ML IV SCH (07:26)
[2018-04-01] MEDS ORDERED: POTASSIUM CHLR 20 MEQ / WTR 20 MEQ IV STA (08:44)
[2018-04-01] MEDS ORDERED: POTASSIUM CHLR 20 MEQ / WTR 100 MEQ IV STA (08:51)
[2018-04-01] MEDS: SUCRALFATE 1 GM/10 ML UDC PO SCH ×4 (09:00→20:31)
[2018-04-01] MEDS: PANTOprazole SOD 40 MG TAB PO SCH (09:00)
[2018-04-01] MEDS: CITALOPRAM 20 MG TAB PO SCH (09:37)
[2018-04-01] MEDS: AMIODARONE 200 MG TAB PO SCH (09:37)
[2018-04-01] MEDS: APIXABAN 2.5 MG TAB PO SCH ×2 (09:38→20:25)
[2018-04-01] MEDS: GABAPENTIN 300 MG CAP PO SCH ×2 (09:38→20:31)
[2018-04-01] MEDS: NYSTATIN POWDER 15GM BTL EXT SCH ×3 (09:39→20:25)
[2018-04-01] MEDS: HYDROmorphone INJ 0.5 MG/0.5 ML SYR IV PRN ×3 (09:46→20:25)
--- NOTE | 2018-04-01 13:12 | Progress Note ---
Progress Note Date of Service Apr 01, 2018. Progress Note Lengthy discussion held with patient, her daughter Delores, and Sydnee from the nursing staff who knows the pt's daughter well. We discussed current issues/problems, lack of nutrition, options for care AFTER discharge, prognosis, and code status. Options for after discharge included home with [facility] [place]. I explained to pt/her daughter that she was a very poor candidate for LTACH for a variety of reasons but particularly because of poor nutrition and the fact Mrs. Philip does NOT want temporary NG tube feedings or a permanent feeding tube. I further explained that making progress in an LTACH without proper nutrition would be difficult if not impossible. They were comfortable with excluding the LTACH as an option. The pt and her daughter reported they would prefer [facility] as Dr. Clemens, their diagnostic medical sonographer, knows her well. With respect to code status -- Mrs. Philip, in the presence of Sydnee and Delores, stated she would NOT want CPR or mechanical ventilation in the event of a cardiopulmonary arrest. Thus, she will be made a level 5 DNR. I did not formally discuss hospice or palliative care, and I did not discuss palliative eating/risk of aspiration. I will defer that until tomorrow. Dr. Oleary, however, plans to discuss the aspiration issue with the patient. Support given to patient & her daughter. I recommended they call their science interpreter at [facility] attend and see if the residential door unit installer could provide spiritual support. Total time about 30 minutes. Bradley Mann MD
[2018-04-01] MEDS: VANCOMYCIN IV 1,250 MG in SODIUM CHLORIDE 0.9% 250ML 250 ML IV SCH (13:25)
--- NOTE | 2018-04-01 14:40 | Pulmonology Progress Note ---
Pulmonary Progress Note Date of Service Apr 01, 2018. Attending Dr. Oleary Subjective No change clinically, the patient respiratory status however has been stable, she is literally off the trach mask, with cuff deflation, and her O2 sat remains above the 95%. Less secretion from the trach tube noted. Objective Patient was stable saturations and notable tracheal aspirate on tracheal suctioning: Was asleep when I walked in the room showing no signs of respiratory insufficiency PmHx: Pulmonary embolism, sleep apnea/OHV, COPD, oxygen dependent 2-5L, diaphragmatic insufficiency/status post fundoplication, steroid-induced myopathy , orthostatic hypotension, hypertension, sclerotic aortic valve, chronic lymphedema, paroxysmal atrial fibrillation, chronic shortness of breath, C diff positive, recurrent UTIs Vital Signs/Physical Exam: SaO2: 90-97% on Venti-mask 21-35% Tmax: 37.2 Neck: Fresh tracheostomy minimal bleeding no signs of breakdown, mild sub-q fremitus Tracheostomy: Mucus secretions noted on tracheostomy suctioning Respiratory: Rhonchi appreciated right lower lobe Cardiac: S1-S2 Abdomen: Positive bowel sounds soft non-tender to deep palpation Labs: Procalcitonin: 0.5 CRP: 0.52 elevated Lactic acid: 1.0 WBC: 6K CT of the abdomen 03/21/2018: Shows continuation bilateral right greater than left atelectasis, no acute changes Urine: Rabia Glabrata Tracheal Aspirate: Staphylococcus Aureus Current Pulmonary Medications/antibiotics/antifungals: 1. Methylprednisolone 40 mg IV daily 2. Caspofungin 50 mg Q 24 (Day#: 3) 3. Spiriva 2 puffs b.i.d. 4. Pantoprazole 40 mg q.day 5. Duo nebs q.6 hours 6. Vancomycin (Day#: 2) 7. Cefepime (Day#: 2) Microbiology URINE: (07/24/15) Escherichia coli (09/01/15) Enterococcus faecalis (12/08/15) Lactobacillus species (11/25/16) Citrobacter species (07/07/17) Escherichia coli (07/24/17) Escherichia coli (03/20/18) Rabia Glabrata Respiratory Bronchial washing (06/29/2010) MRSA Bronchial washing left upper lobe (01/25/16) Fungal Species Right lower lobe bronchial washing (06/30/16) Fungal Species Bronchial washing right middle lobe (11/28/16) MRSA Bronchial washing right middle (01/15/17) Fungal Species Bronchial washing right and left lower lobe (10/09/2017) Bordetella Bronchiseptica Tracheal Aspirate (03/24/18): Staphylococcus Aureus Blood (04/24/16) Propionibacterium acnes Skin (04/17/17) right lower extremity: Pseudomonas aeruginosa, Enterococcus faecalis Stool C. difficile testing for 06/07/2018: Positive Physical exam on 03/26/2018 showed low-grade temperature yesterday, S1-S2 regular rate and rhythm, she does have rhonchi bilaterally, copious amount of secretions from the tracheostomy tube, edema in the periphery, abdomen is benign. Physical exam on 03/27/2018 showed no fever, vital signs are stable, no stridor, distant rhonchi bilaterally, remains with moderate amount of secretions, abdomen is nontender but soft, vague pain mainly on the left and right lower quadrant, minimal edema in the periphery. Physical exam on 03/28/2018 showed afebrile patient, vital signs are stable, no stridor, rhonchi bilaterally, S1 S2 regular rate and rhythm, trach site appeared well maintained. Abdomen is distended tympanic. Edema in the periphery with skin changes due to chronic steroids use. Physical exam on 03/29/2018 showed stable vital signs, S1-S2 regular rate and rhythm, trach site appears well-maintained, subcu emphysema is improving, distant breath sounds bilaterally, abdomen remains distended and tympanic, umbilical hernia, edema in the periphery, cushingoid type. KUB was reviewed after placement of NG tube which showed the tip of the NG tube is sub-phrenic. Physical exam on 03/30/2018 showed vital signs are stable, S1-S2 regular rate and rhythm, less secretions from the tracheostomy tube noted, subcu emphysema almost resolved, no stridor, rhonchi bilaterally, abdomen is slightly distended with umbilical hernia, tympanic, edema in the periphery. Her laboratory also showed no leukocytosis, no new organism, she does have MRSA in the sputum. Physical exam on 03/31/2018 showed vital signs are stable, S1-S2, A. fib, tracheostomy site is well maintained, remains with significant secretions and suctioned at the bedside, rhonchi bilaterally, abdomen is less distended, nontender, trace edema in the periphery. Glucose remains elevated. Physical exam on 04/01/2018 showed stable vital signs, remains in A. fib but rate controlled, trach site appeared clean, distant breath sounds bilaterally, abdomen is softer and benign nondistended with positive bowel sounds, trace edema in the periphery. Labs were reviewed, no new imaging. Assessment & Plan 1. Morbid obesity with BMI more than 30. 2. Obstructive sleep apnea with CO2 retention. 3. COPD with cor pulmonale. 4. Acute on chronic respiratory failure, currently with tracheostomy tube. 5. A. fib with RVR. 6. Aspiration pneumonitis. 7. Subcu emphysema, iatrogenic, resolving. 8. Mild CHF with bilateral pleural effusion. 9. chronic hypercapnic respiratory failure. 10. Diaphragm dysfunction status post diaphragm plication. 11. Developing ileus versus partial small bowel obstruction. 12. 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 Plan: 1. Continue with Vanco and caspofungin, stop date per infectious disease. 2. Decrease prednisone to 20 mg p.o. daily. 3. Allow the patient for oral intake with aspiration precaution.. 4. Continue DuoNeb. 5. Continue Reglan before meals and at bedtime. 6. Palliative care consult. 7. CODE STATUS addressed with Dr. Mann, appreciate his input, patient is currently DNR. Apparently there was the patient decision which I agree with. 8. discussed the goal of care with the daughter, and hopefully the patient will reach the point where she can be discharged to a long-term, discharging to home itself might not be feasible. 9. No further discussion regarding feeding tube, the patient declined all. 10. The trach can be changed to non-cuffed in an effort to alleviate the patient's symptoms while she is swallowing. Discussed with the staff at the bedside. Data Medications: Current Inpatient Medications Medications (Trade) Dose Ordered Sig/Natasha Route Start Time Stop Time Status Last Admin Dose Admin Acetaminophen (Tylenol Tab) 650 mg Q4H PRN PO 03/15/18 18:30 04/14/18 18:29 Future Hold 03/19/18 20:01 650 MG Al Hydrox/Mg Hydrox/Simethicone (Maalox Max Susp) 15 ml Q4H PRN PO 03/15/18 18:30 04/14/18 18:29 Magnesium Hydroxide (Milk Of Magnesia Susp) 30 ml Q12H PRN PO 03/15/18 18:30 04/14/18 18:29 Ondansetron HCl (Zofran Inj) 4 mg Q6H PRN IV 03/15/18 18:30 04/14/18 18:29 Albuterol Sulfate (Ventolin 0.083% 2.5MG/3ML Neb) 2.5 mg Q4H PRN INH 03/15/18 18:30 04/14/18 18:29 Albuterol/ Ipratropium (Duoneb) 3 ml Q6R NEB 03/15/18 21:00 04/14/18 20:59 04/01/18 06:58 3 ML Butalbital/ Aspirin/Caffeine (Fiorinal Tab/ CAP) 1 tab Q4 PRN PO 03/15/18 20:00 04/14/18 19:59 Future Hold 03/17/18 08:17 1 TAB Calcitriol (Rocaltrol Cap) 0.25 mcg DAILY PO 03/16/18 09:00 04/15/18 08:59 Future Hold 03/24/18 11:37 0.25 MCG Cholecalciferol (Vitamin D Tab) 1,000 inter.unit DAILY PO 03/16/18 09:00 04/15/18 08:59 Future Hold 03/24/18 11:38 1,000 INTER.UNIT Citalopram Hydrobromide (celeXA TAB) 30 mg DAILY PO 03/16/18 09:00 04/15/18 08:59 Future hold 04/01/18 09:37 30 MG Diclofenac Sodium (Voltaren 1% Top Gel) 1 appln QID PRN EXT 03/15/18 19:30 04/14/18 19:29 03/18/18 08:30 1 APPLN Gabapentin (Neurontin Cap) 300 mg BID PO 03/15/18 21:00 04/14/18 20:59 Future hold 04/01/18 09:38 300 MG Levothyroxine Sodium (Synthroid Tab) 100 mcg DAILYBB PO 03/16/18 06:00 04/15/18 06:59 Future hold 04/01/18 06:02 100 MCG Lorazepam (Ativan Tab) 0.25 mg for mild anxiety/ sl... Q6 PRN PO 03/15/18 18:30 04/14/18 18:29 Future Hold 03/18/18 21:12 0.25 MG Nystatin (Mycostatin Powder) 1 appln TID EXT 03/15/18 21:00 04/14/18 20:59 04/01/18 13:25 1 APPLN Ropinirole HCl (Requip Tab) 0.5 mg HS PO 03/15/18 21:00 04/14/18 20:59 Future hold 03/31/18 21:31 0.5 MG Simvastatin (Zocor Tab) 20 mg HS PO 03/15/18 21:00 04/14/18 20:59 Future Hold 03/22/18 21:06 20 MG Sucralfate (Carafate Susp) 1 gm QID PO 03/15/18 21:00 04/14/18 20:59 Future hold 04/01/18 13:25 1 GM Apixaban (Eliquis Tab) 5 mg BID PO 03/15/18 21:00 04/14/18 20:59 Future hold 04/01/18 09:38 5 MG Calcium Carbonate (oS-Misael 500 TAB) 2,500 mg HS PO 03/15/18 21:00 04/14/18 20:59 Future Hold 03/22/18 21:07 2,500 MG Cyanocobalamin (Vitamin B-12 Tab) 1,000 mcg QAM PO 03/16/18 09:00 04/15/18 08:59 Future Hold 03/24/18 11:39 1,000 MCG Pantoprazole Sodium (Protonix Tab) 40 mg QAM PO 03/16/18 09:00 04/15/18 08:59 Future hold 03/24/18 11:37 40 MG Ferrous Sulfate (Feosol Tab) 325 mg DAILY PO 03/16/18 09:00 04/15/18 08:59 Future Hold 03/24/18 11:36 325 MG Miscellaneous Information (Order Awaiting Action) 1 ea QS N/A 03/16/18 00:00 04/15/18 00:00 03/18/18 18:49 1 EA Glucose (Glucose 40% Gel) 15-30 GRAMS 15 GRAMS... UD PRN PO 03/15/18 19:00 04/14/18 18:59 Glucose (Glucose Chew Tab) 4-8 Tablets 4 Tabl... UD PRN PO 03/15/18 19:00 04/14/18 18:59 Dextrose (Dextrose 50% 50ML Syringe) 25-50ML 25ML FOR ... UD PRN IV 03/15/18 19:00 04/14/18 18:59 Glucagon (Glucagon Inj) 1 mg UD PRN SQ 03/15/18 19:00 04/14/18 18:59 Carbohydrates (Carbohydrates For Hypoglycemia) 15-30 GRAMS 15 grams if BSG 54-69... UD PRN PO 03/15/18 19:00 04/14/18 18:59 Clonidine HCl (Catapres Tab) 0.1 mg QAM PO 03/18/18 09:00 04/17/18 08:59 Future Hold 03/24/18 11:35 0.1 MG Heparin Sodium (Porcine) (Heparin 10 Unit/ ml 5 ml Flush) 5 ml PRN PRN FLUSH 03/20/18 00:30 04/19/18 00:29 Amiodarone HCl (Cordarone Tab) 200 mg DAILY PO 03/29/18 09:00 04/28/18 08:59 04/01/18 09:37 200 MG Non-Formulary Medication (Non-Formulary Patient'S Own Med) 1 ea DAILY PO 03/22/18 09:00 04/21/18 08:59 03/24/18 11:37 1 EA Hydromorphone HCl (Dilaudid Inj) 0.25 mg Q1H PRN IV 03/23/18 11:30 04/06/18 11:29 04/01/18 13:26 0.25 MG Vancomycin HCl (Consult) 1 ea UD PRN N/A 03/24/18 11:00 04/23/18 10:59 Senna (Senokot Tab) 17.2 mg HS PO 03/24/18 21:00 04/23/18 20:59 Future hold 03/31/18 21:32 17.2 MG Acetaminophen 100 ml @ 400 mls/hr Q8H PRN IV 03/25/18 15:45 04/24/18 15:44 03/29/18 09:02 400 MLS/HR Potassium Chloride/Dextrose/ Sod Cl 1,000 ml @ 50 mls/hr Q20H IV 03/26/18 10:00 04/25/18 09:59 04/01/18 00:35 50 MLS/HR Vancomycin HCl 1250 mg/Sodium Chloride 275 ml @ 125 mls/hr Q18H IV 03/27/18 06:00 04/03/18 05:59 04/01/18 13:25 125 MLS/HR Pantoprazole Sodium 40 mg/ Syringe 10 ml @ 5 mls/min DAILY@11 IV 03/27/18 11:00 04/26/18 10:59 03/31/18 08:56 5 MLS/MIN Lorazepam (Ativan Inj) 0.5 mg Q6H PRN IV 03/27/18 18:15 04/26/18 18:14 03/31/18 03:54 0.5 MG Lorazepam 0.5 mg/ Syringe 1 ml @ 1 mls/min Q6H PRN IV 03/27/18 18:45 04/26/18 18:44 Metoclopramide HCl (Reglan Inj) 5 mg Q6H IV. 03/30/18 12:00 04/29/18 11:59 04/01/18 13:26 5 MG Enteral Nutritional Formula (Peptamen 1.5) 1,000 ml UD NG 03/30/18 13:00 04/29/18 12:59 Prednisone (PredniSONE TAB) 30 mg QAM PO 04/01/18 09:00 05/01/18 08:59 04/01/18 09:38 30 MG Insulin Aspart (novoLOG ASPART) SLIDING SCALE If C... ACHS SC 04/01/18 07:00 05/01/18 06:59 I & O: 24-Hour Column 04/02/18 08:00 Intake Total 478 ml Output Total 550 ml Balance -72 ml Vital Signs: Date Time Temp Pulse Resp B/P (MAP) Pulse Ox O2 Delivery O2 Flow Rate FiO2 04/01/18 11:38 37.2 89 151/71 (97) 91 04/01/18 08:45 Trach Collar 5.0 04/01/18 07:01 36.7 86 20 152/80 (104) 96 Trach Collar 6.0 04/01/18 06:59 73 18 95 Trach Collar 6.0 28 04/01/18 04:01 36.9 86 22 145/79 (101) 96 Trach Collar 6.0 28 04/01/18 01:16 85 18 100 Trach Collar 6.0 28 03/31/18 23:04 37.1 87 15 142/80 (100) 96 Trach Collar 6.0 28 03/31/18 22:18 111 100 28 03/31/18 21:11 97 174/90 (118) 03/31/18 20:00 Trach Collar 5.0 03/31/18 19:55 36.8 84 15 187/81 (116) 97 Trach Collar 6.0 28 03/31/18 19:49 84 20 100 Trach Collar 28 03/31/18 15:58 37.1 98 15 162/94 (116) 94 Trach Collar 6.0 28 Laboratory Results: Last 24 Hours Test 03/31/18 16:37 03/31/18 20:19 04/01/18 00:35 04/01/18 06:15 Bedside Glucose 172 mg/dl 114 mg/dl 110 mg/dl Sodium Level 144 mmol/L Potassium Level 3.3 mmol/L Chloride Level 109 mmol/L Carbon Dioxide Level 28 mmol/L Anion Gap 7.0 mmol/L Blood Urea Nitrogen 5 mg/dl Creatinine 0.73 mg/dl Est Creatinine Clear Calc Drug Dose 61.7 ml/min Estimated GFR () 89.5 Estimated GFR (Non- 77.2 BUN/Creatinine Ratio 6.9 Random Glucose 98 mg/dl Calcium Level 7.8 mg/dl Test 04/01/18 07:17 04/01/18 11:35 Bedside Glucose 106 mg/dl 118 mg/dl
[2018-04-01] MEDS: SENNA 8.6 MG TAB PO SCH (20:31)
[2018-04-01] MEDS: ROPINIROLE HCL 0.25 MG TAB PO SCH (20:31)
--- NOTE | 2018-04-01 21:55 | Progress Note ---
Subjective Date of Service: Apr 01, 2018. Subjective Pt evaluation today including: conversation w/ patient, conversation w/ family (Delores, daughter, at bedside), physical exam, chart review, lab review, conversation w/ interior design consultant (pulmonary), review of inpatient medication list Pain: neck, and abdomen - ongoing PO Intake: scant/minimal -- no appetite Voiding: christian catheter in place no stool continues to have neck/abd discomfort swallowing is satisfactory, but has no appetite, and has had minimal oral intake admits to depression no respiratory distress; denies dyspnea c/o weakness and fatigue LENGTHY discussion held with patient and her daughter today - see separate note Problem List Medical Problems: (1) Cervical strain Status: Acute (2) Contusion of multiple sites Status: Acute (3) COPD exacerbation Status: Acute (4) Fall Status: Acute (5) Fall from chair, initial encounter Status: Acute (6) Fatigue Status: Acute (7) Head injury Status: Acute (8) Head injury Status: Acute (9) Hip pain Status: Acute (10) Hypocalcemia Status: Acute (11) Hypoxia Status: Acute (12) Hypoxia Status: Acute (13) Lower extremity edema Status: Acute (14) PNA (pneumonia) Status: Acute (15) Pneumonia Status: Acute (16) Pneumonitis Status: Acute (17) Reactive airway disease Status: Acute (18) Right flank pain Status: Acute (19) Sepsis Status: Acute (20) Sepsis Status: Acute (21) Syncope Status: Acute (22) Traumatic compression fracture of third thoracic vertebra Status: Acute (23) Vaginal yeast infection Status: Acute (24) Weakness Status: Acute (25) Yeast vaginitis Status: Acute Review of Systems Constitutional: + fatigue Respiratory: + cough, + sputum, No dyspnea at rest Cardiac: No chest pain Abdomen: + pain, + constipation, No nausea, No vomiting Psychiatric: + depression symptoms Objective Vital Signs Date Time Temp Pulse Resp B/P (MAP) Pulse Ox O2 Delivery O2 Flow Rate FiO2 04/01/18 11:38 37.2 89 151/71 (97) 91 04/01/18 08:45 Trach Collar 5.0 04/01/18 07:01 36.7 86 20 152/80 (104) 96 Trach Collar 6.0 04/01/18 06:59 73 18 95 Trach Collar 6.0 28 04/01/18 04:01 36.9 86 22 145/79 (101) 96 Trach Collar 6.0 28 04/01/18 01:16 85 18 100 Trach Collar 6.0 28 03/31/18 23:04 37.1 87 15 142/80 (100) 96 Trach Collar 6.0 28 03/31/18 22:18 111 100 28 03/31/18 21:11 97 174/90 (118) 03/31/18 20:00 Trach Collar 5.0 03/31/18 19:55 36.8 84 15 187/81 (116) 97 Trach Collar 6.0 28 03/31/18 19:49 84 20 100 Trach Collar 28 03/31/18 15:58 37.1 98 15 162/94 (116) 94 Trach Collar 6.0 28 03/31/18 14:12 62 20 97 Trach Collar 28 Physical Exam General Appearance: no apparent distress, + obese, + pertinent finding ( cushingnoid facies) ENT: pharynx normal (no thrush, MMM) Neck: no JVD, + pertinent finding (trach in place; copious, thick, delgado-yellow secretions present in trach opening) Respiratory/Chest: + decreased breath sounds (bases), + pertinent finding ( very course BS b/l ) Cardiovascular: regular rate, rhythm, no gallop Abdomen: no organomegaly, + distended (no change from yesterday's exam), + tenderness Extremities: no pedal edema Neurologic/Psychiatric: alert, oriented x 3, + depressed affect (crying/ tearful ) Skin: + pertinent finding (PICC line, RUE - clean ; ecchymoses on legs, arms ) Laboratory Results Last 24 Hours Test 03/31/18 16:37 03/31/18 20:19 04/01/18 00:35 04/01/18 06:15 Bedside Glucose 172 mg/dl 114 mg/dl 110 mg/dl Sodium Level 144 mmol/L Potassium Level 3.3 mmol/L Chloride Level 109 mmol/L Carbon Dioxide Level 28 mmol/L Anion Gap 7.0 mmol/L Blood Urea Nitrogen 5 mg/dl Creatinine 0.73 mg/dl Est Creatinine Clear Calc Drug Dose 61.7 ml/min Estimated GFR () 89.5 Estimated GFR (Non- 77.2 BUN/Creatinine Ratio 6.9 Random Glucose 98 mg/dl Calcium Level 7.8 mg/dl Test 04/01/18 07:17 04/01/18 11:35 Bedside Glucose 106 mg/dl 118 mg/dl Assessment and Plan 83yo female: 1. b/l pneumonia - 2nd to MRSA - day #9 of therapy. Continue vanco for MRSA. Plan 10-14 days of Rx. Could always change to zyvox in marva of vanco. 2. new-onset a. fib - converted to NSR earlier this stay with amiodarone. Resumed amiodarone by mouth along w/ eliquis. 3. ileus - ongoing. Patient pulled out her NG tube 2 nights ago. Fortunately she has not had nausea/emesis. With that said she has had no bowel movement. Dr. Oleary added reglan IV q6h. Will continue this for now. Allow diet as desired/tolerated. 4. acute/chronic hypoxic respiratory failure - s/p trach placement. Acute component 2nd to #1. 5. dysphagia - patient refusing permanent feeding tube. She pulled out her NG tube 2 nights ago as well. Speech re-evaluated her 03/30/18 w/ bedside swallow and patient placed back on thickened liquids. Tolerating such thus far. Allow mech soft diabetic diet as desired/tolerated. 6. protein calorie malnutrition, moderate-severe degree - again she is refusing permanent feeding tube. Ongoing issue. Doubt it will improve. 7. COPD with mild exacerbation - wean to prednisone 20mg daily in the AM.. 8. H/O DVTs - noted; resumed eliquis. 9. CKD stage 3 - creatinine stable. 10. Hypothyroidism - compensated; cont synthroid. 11. T2DM - controlled. 12. chronic diastolic CHF - compensated. In fact she has lost weight in the hospital. 13. right-sided elevated Hemidiaphragm - S/P Plication in the past. 14. depression - resumed SSRI. Consider titration and/or addition of additional medication. 15. HTN - controlled 16. FEN - stop fluids. Diet if desired. Replace K with IV KCL today. 17. DVT proph - eliquis. 18. RLS - requip. patient overall doing very, very poorly is profoundly weak/deconditioned (hasn't bed out of bed in 2+ weeks) little to no appetite ongoing depression despite IV vanco had low-grade temps today see my separate note from today re: discussion held with patient, her daughter Delores, and nursing staff pt now DNR I suspect we are approaching palliative care/hospice status will formally involve palliative care tomorrow ( please note I did NOT address palliative care during the discussion today) will try to stop any unnecessary meds (statin, iron, b12, etc etc) focus on quality and pain control and relieving other symptoms total time today over 2 visits - 60 minutes Continued [facility] stay due to: fever, inadequate po fluid intake, inadequate oral pain control, voiding difficulties, ambulation difficulties, multiple IV medications needed, other (ileus, pneumonia, etc) Discharge planning: uncertain
[2018-04-02] VITALS (10 sets, daily range): BP systolic 108–144; BP diastolic 52–85; PULSE 68–111; TEMP 36.7–37.9; O2SAT 93–99
[2018-04-02] MEDS: ALBUT/IPRATROP 3MG/0.5MG NEB 3 ML VIAL NEB SCH ×4 (01:46→19:25)
[2018-04-02] MEDS: HYDROmorphone INJ 0.5 MG/0.5 ML SYR IV PRN ×2 (01:55→08:15)
[2018-04-02] MEDS: VANCOMYCIN IV 1,250 MG in SODIUM CHLORIDE 0.9% 250ML 250 ML IV SCH (06:11)
[2018-04-02] MEDS: LEVOTHYROXINE 100 MCG TAB PO SCH (06:11)
[2018-04-02] MEDS: METOCLOPRAMIDE HCL INJ 5 MG/ML 2 ML VIAL IV. SCH ×3 (06:11→17:23)
[2018-04-02] MEDS: ACETAMINOPHEN IV 1000MG/100ML IV PRN (08:16)
[2018-04-02] MEDS ORDERED: PANTOprazole SOD 40 MG TAB PO SCH (09:00)
[2018-04-02] MEDS: INSULIN ASPART 100 UNITS/ML 3 ML PEN SC SCH ×4 (09:16→20:52)
[2018-04-02] MEDS: SUCRALFATE 1 GM/10 ML UDC PO SCH ×4 (09:56→20:52)
[2018-04-02] MEDS: CITALOPRAM 20 MG TAB PO SCH ×2 (09:56→11:46)
[2018-04-02] MEDS: APIXABAN 2.5 MG TAB PO SCH ×3 (09:57→20:54)
[2018-04-02] MEDS: GABAPENTIN 300 MG CAP PO SCH ×3 (09:57→20:53)
[2018-04-02] MEDS: AMIODARONE 200 MG TAB PO SCH ×2 (09:57→11:46)
[2018-04-02] MEDS: PANTOprazole SOD 40 MG TAB PO SCH ×2 (09:57→11:47)
[2018-04-02] MEDS: NYSTATIN POWDER 15GM BTL EXT SCH ×3 (09:58→20:52)
--- NOTE | 2018-04-02 10:19 | Pulmonology Progress Note ---
Pulmonary Progress Note Date of Service Apr 02, 2018. Attending Dr. Oleary Subjective The patient clinically remains the same, no events overnight, minimal secretions from the trach site reported, the patient has not started on oral intake in the past 24 hours. The patient herself appeared to be fatigued but denies any pain or shortness of breath. She has occasional cough from a trach site. Objective Patient was stable saturations and notable tracheal aspirate on tracheal suctioning: Was asleep when I walked in the room showing no signs of respiratory insufficiency PmHx: Pulmonary embolism, sleep apnea/OHV, COPD, oxygen dependent 2-5L, diaphragmatic insufficiency/status post fundoplication, steroid-induced myopathy , orthostatic hypotension, hypertension, sclerotic aortic valve, chronic lymphedema, paroxysmal atrial fibrillation, chronic shortness of breath, C diff positive, recurrent UTIs Vital Signs/Physical Exam: SaO2: 90-97% on Venti-mask 21-35% Tmax: 37.2 Neck: Fresh tracheostomy minimal bleeding no signs of breakdown, mild sub-q fremitus Tracheostomy: Mucus secretions noted on tracheostomy suctioning Respiratory: Rhonchi appreciated right lower lobe Cardiac: S1-S2 Abdomen: Positive bowel sounds soft non-tender to deep palpation Labs: Procalcitonin: 0.5 CRP: 0.52 elevated Lactic acid: 1.0 WBC: 6K CT of the abdomen 03/21/2018: Shows continuation bilateral right greater than left atelectasis, no acute changes Urine: Rabia Glabrata Tracheal Aspirate: Staphylococcus Aureus Current Pulmonary Medications/antibiotics/antifungals: 1. Methylprednisolone 40 mg IV daily 2. Caspofungin 50 mg Q 24 (Day#: 3) 3. Spiriva 2 puffs b.i.d. 4. Pantoprazole 40 mg q.day 5. Duo nebs q.6 hours 6. Vancomycin (Day#: 2) 7. Cefepime (Day#: 2) Microbiology URINE: (07/24/15) Escherichia coli (09/01/15) Enterococcus faecalis (12/08/15) Lactobacillus species (11/25/16) Citrobacter species (07/07/17) Escherichia coli (07/24/17) Escherichia coli (03/20/18) Rabia Glabrata Respiratory Bronchial washing (06/29/2010) MRSA Bronchial washing left upper lobe (01/25/16) Fungal Species Right lower lobe bronchial washing (06/30/16) Fungal Species Bronchial washing right middle lobe (11/28/16) MRSA Bronchial washing right middle (01/15/17) Fungal Species Bronchial washing right and left lower lobe (10/09/2017) Bordetella Bronchiseptica Tracheal Aspirate (03/24/18): Staphylococcus Aureus Blood (04/24/16) Propionibacterium acnes Skin (04/17/17) right lower extremity: Pseudomonas aeruginosa, Enterococcus faecalis Stool C. difficile testing for 06/07/2018: Positive Physical exam on 03/26/2018 showed low-grade temperature yesterday, S1-S2 regular rate and rhythm, she does have rhonchi bilaterally, copious amount of secretions from the tracheostomy tube, edema in the periphery, abdomen is benign. Physical exam on 03/27/2018 showed no fever, vital signs are stable, no stridor, distant rhonchi bilaterally, remains with moderate amount of secretions, abdomen is nontender but soft, vague pain mainly on the left and right lower quadrant, minimal edema in the periphery. Physical exam on 03/28/2018 showed afebrile patient, vital signs are stable, no stridor, rhonchi bilaterally, S1 S2 regular rate and rhythm, trach site appeared well maintained. Abdomen is distended tympanic. Edema in the periphery with skin changes due to chronic steroids use. Physical exam on 03/29/2018 showed stable vital signs, S1-S2 regular rate and rhythm, trach site appears well-maintained, subcu emphysema is improving, distant breath sounds bilaterally, abdomen remains distended and tympanic, umbilical hernia, edema in the periphery, cushingoid type. KUB was reviewed after placement of NG tube which showed the tip of the NG tube is sub-phrenic. Physical exam on 03/30/2018 showed vital signs are stable, S1-S2 regular rate and rhythm, less secretions from the tracheostomy tube noted, subcu emphysema almost resolved, no stridor, rhonchi bilaterally, abdomen is slightly distended with umbilical hernia, tympanic, edema in the periphery. Her laboratory also showed no leukocytosis, no new organism, she does have MRSA in the sputum. Physical exam on 03/31/2018 showed vital signs are stable, S1-S2, A. fib, tracheostomy site is well maintained, remains with significant secretions and suctioned at the bedside, rhonchi bilaterally, abdomen is less distended, nontender, trace edema in the periphery. Glucose remains elevated. Physical exam on 04/01/2018 showed stable vital signs, remains in A. fib but rate controlled, trach site appeared clean, distant breath sounds bilaterally, abdomen is softer and benign nondistended with positive bowel sounds, trace edema in the periphery. Labs were reviewed, no new imaging. Physical exam on 04/02/2018 showed well-maintained tracheostomy site, cushingoid appearance, vital signs are stable, she is on minimal oxygen only for humidification, minimal secretions from the inner cannula, S1-S2 regular rate and rhythm, distant breath sounds, abdomen is soft, trace edema in the periphery. No new imaging and no new labs. Assessment & Plan 1. Morbid obesity with BMI more than 30. 2. Obstructive sleep apnea with CO2 retention. 3. COPD with cor pulmonale. 4. Acute on chronic respiratory failure, currently with tracheostomy tube. 5. A. fib with RVR. 6. Aspiration pneumonitis. 7. Subcu emphysema, iatrogenic, resolving. 8. Mild CHF with bilateral pleural effusion. 9. chronic hypercapnic respiratory failure. 10. Diaphragm dysfunction status post diaphragm plication. 11. Developing ileus versus partial small bowel obstruction. 12. 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 Plan: 1. Continue with Vanco and caspofungin, stop date per infectious disease. 2. Decrease prednisone to 20 mg p.o. daily. 3. Allow the patient for oral intake with aspiration precaution.. Hopefully will start today. 4. Continue DuoNeb. 5. Continue Reglan before meals and at bedtime. 6. Palliative care consult. 7. CODE STATUS addressed with Dr. Mann, appreciate his input, patient is currently DNR. Patient decision. 8. discussed the goal of care with the daughter, and hopefully the patient will reach the point where she can be discharged to a detention, discharging to home itself might not be feasible. 9. No further discussion regarding feeding tube, the patient declined all. 10. The trach can be changed to non-cuffed in an effort to alleviate the patient's symptoms while she is swallowing. Discussed with the staff at the bedside. Thank you, will follow. Data Medications: Current Inpatient Medications Medications (Trade) Dose Ordered Sig/Natasha Route Start Time Stop Time Status Last Admin Dose Admin Acetaminophen (Tylenol Tab) 650 mg Q4H PRN PO 03/15/18 18:30 04/14/18 18:29 Future hold 03/19/18 20:01 650 MG Al Hydrox/Mg Hydrox/Simethicone (Maalox Max Susp) 15 ml Q4H PRN PO 03/15/18 18:30 04/14/18 18:29 Magnesium Hydroxide (Milk Of Magnesia Susp) 30 ml Q12H PRN PO 03/15/18 18:30 04/14/18 18:29 Ondansetron HCl (Zofran Inj) 4 mg Q6H PRN IV 03/15/18 18:30 04/14/18 18:29 Albuterol Sulfate (Ventolin 0.083% 2.5MG/3ML Neb) 2.5 mg Q4H PRN INH 03/15/18 18:30 04/14/18 18:29 Albuterol/ Ipratropium (Duoneb) 3 ml Q6R NEB 03/15/18 21:00 04/14/18 20:59 04/01/18 19:40 3 ML Citalopram Hydrobromide (celeXA TAB) 30 mg DAILY PO 03/16/18 09:00 04/15/18 08:59 Future hold 04/01/18 09:37 30 MG Diclofenac Sodium (Voltaren 1% Top Gel) 1 appln QID PRN EXT 03/15/18 19:30 04/14/18 19:29 03/18/18 08:30 1 APPLN Gabapentin (Neurontin Cap) 300 mg BID PO 03/15/18 21:00 04/14/18 20:59 Future hold 04/01/18 20:31 300 MG Levothyroxine Sodium (Synthroid Tab) 100 mcg DAILYBB PO 03/16/18 06:00 04/15/18 06:59 Future hold 04/02/18 06:11 100 MCG Nystatin (Mycostatin Powder) 1 appln TID EXT 03/15/18 21:00 04/14/18 20:59 04/02/18 09:58 1 APPLN Ropinirole HCl (Requip Tab) 0.5 mg HS PO 03/15/18 21:00 04/14/18 20:59 Future hold 04/01/18 20:31 0.5 MG Sucralfate (Carafate Susp) 1 gm QID PO 03/15/18 21:00 04/14/18 20:59 Future hold 04/01/18 20:31 1 GM Apixaban (Eliquis Tab) 5 mg BID PO 03/15/18 21:00 04/14/18 20:59 Future hold 04/01/18 20:25 5 MG Pantoprazole Sodium (Protonix Tab) 40 mg QAM PO 03/16/18 09:00 04/15/18 08:59 Future hold 03/24/18 11:37 40 MG Miscellaneous Information (Order Awaiting Action) 1 ea QS N/A 03/16/18 00:00 04/15/18 00:00 03/18/18 18:49 1 EA Glucose (Glucose 40% Gel) 15-30 GRAMS 15 GRAMS... UD PRN PO 03/15/18 19:00 04/14/18 18:59 Glucose (Glucose Chew Tab) 4-8 Tablets 4 Tabl... UD PRN PO 03/15/18 19:00 04/14/18 18:59 Dextrose (Dextrose 50% 50ML Syringe) 25-50ML 25ML FOR ... UD PRN IV 03/15/18 19:00 04/14/18 18:59 Glucagon (Glucagon Inj) 1 mg UD PRN SQ 03/15/18 19:00 04/14/18 18:59 Carbohydrates (Carbohydrates For Hypoglycemia) 15-30 GRAMS 15 grams if BSG 54-69... UD PRN PO 03/15/18 19:00 04/14/18 18:59 Heparin Sodium (Porcine) (Heparin 10 Unit/ ml 5 ml Flush) 5 ml PRN PRN FLUSH 03/20/18 00:30 04/19/18 00:29 Amiodarone HCl (Cordarone Tab) 200 mg DAILY PO 03/29/18 09:00 04/28/18 08:59 04/01/18 09:37 200 MG Non-Formulary Medication (Non-Formulary Patient'S Own Med) 1 ea DAILY PO 03/22/18 09:00 04/21/18 08:59 03/24/18 11:37 1 EA Hydromorphone HCl (Dilaudid Inj) 0.25 mg Q1H PRN IV 03/23/18 11:30 04/06/18 11:29 04/02/18 08:15 0.25 MG Vancomycin HCl (Consult) 1 ea UD PRN N/A 03/24/18 11:00 04/23/18 10:59 Senna (Senokot Tab) 17.2 mg HS PO 03/24/18 21:00 04/23/18 20:59 Future hold 04/01/18 20:31 17.2 MG Acetaminophen 100 ml @ 400 mls/hr Q8H PRN IV 03/25/18 15:45 04/24/18 15:44 04/02/18 08:16 400 MLS/HR Vancomycin HCl 1250 mg/Sodium Chloride 275 ml @ 125 mls/hr Q18H IV 03/27/18 06:00 04/03/18 05:59 04/02/18 06:11 125 MLS/HR Lorazepam (Ativan Inj) 0.5 mg Q6H PRN IV 03/27/18 18:15 04/26/18 18:14 03/31/18 03:54 0.5 MG Lorazepam 0.5 mg/ Syringe 1 ml @ 1 mls/min Q6H PRN IV 03/27/18 18:45 04/26/18 18:44 Metoclopramide HCl (Reglan Inj) 5 mg Q6H IV. 03/30/18 12:00 04/29/18 11:59 04/02/18 06:11 5 MG Enteral Nutritional Formula (Peptamen 1.5) 1,000 ml UD NG 03/30/18 13:00 04/29/18 12:59 Insulin Aspart (novoLOG ASPART) SLIDING SCALE If C... ACHS SC 04/01/18 07:00 05/01/18 06:59 Prednisone (PredniSONE TAB) 20 mg QAM PO 04/02/18 09:00 05/01/18 08:59 Vital Signs: Date Time Temp Pulse Resp B/P (MAP) Pulse Ox O2 Delivery O2 Flow Rate FiO2 04/02/18 08:45 Trach Collar 5.0 04/02/18 07:57 37.9 98 24 144/85 (104) 95 Trach Collar 5.0 04/02/18 04:01 37.1 70 18 108/52 (70) 95 Nasal Cannula 5.0 28 04/01/18 22:57 37.3 86 15 112/62 (79) 97 Trach Collar 6.0 28 04/01/18 20:00 Room Air 04/01/18 19:40 80 20 97 Room Air 04/01/18 18:43 37.7 90 19 110/59 (76) 91 04/01/18 15:14 38.0 89 15 146/82 (103) 91 Room Air 04/01/18 11:38 37.2 89 151/71 (97) 91 Laboratory Results: Last 24 Hours Test 04/01/18 11:35 04/01/18 15:58 04/01/18 20:50 04/02/18 07:23 Bedside Glucose 118 mg/dl 153 mg/dl 125 mg/dl 100 mg/dl
--- NOTE | 2018-04-02 12:24 | Palliative Care Consultation ---
Consultation Date of Consultation: Apr 02, 2018. Requesting Physician: Dr. Mann Attending Physician: Dr. Nelson Reason for Consultation: Goals of care History of Present Illness This 83 year old female patient with complicated and extensive past medical history including chronic respiratory failure, COPD, obesity, elevated right hemidiaphragm, diastolic CHF, CKD stage II/III, and others listed below, presented to the hospital 18 days ago with c/o right sided chest pain. Her stay has been quite complicated including a tracheostomy for airway protection/ secretion management, fib with RVR, aspiration pneumonitis, mild CHF with bilateral pleural effusion, ileus vs. SBO, as well as overall deconditioning/ decline. Dr. Mann had extensive conversations with patient and daughter over the weekend about poor prognosis. Palliative care is consulted to establish goals of care. Met with patient in room 217 this AM. Patient is awake, drowsy, oriented to person, place and event. She is unable to speak due to trach, but is able to answer yes and no questions and mouth words. From our conversation, she was able to tell me that she does not want to continue to receive aggressive care. She does not want to return to the hospital and would be okay with hospice care. She DOES want to continue abx and allow comfort feeding/permissive aspiration. She gave me permission to call her daughter/POA, Grisel Philip. I called Grisel and left a message. Dr. Georges entered patient's room this afternoon when daughter was at bedside. Grisel dismissed her and stated she does not want palliative care team involved with patient. Past Medical/Surgical History Medical History: 1. Chronic Respiratory Failure 2/2 COPD 2. Elevated R Hemidiaphragm S/P Plication 3. H/O DVTs 4. Hypothyroidism 5. T2DM 6. CKD Stage II/III 7. Diastolic CHF 8. GERD 9. S/P Appendectomy 10. MRSA PNA and Bordetella Bronchiseptica PNA Social History Drug Use: none Marital Status: Housing Status: lives with family Occupation Status: retired Review of Systems Constitutional: + weakness ENT: + trouble swallowing Respiratory: + cough, No shortness of breath Cardiac: + edema, No chest pain Abdomen: + pain (epigastric), No nausea, No vomiting Female : No problem reported Psychiatric: No depression symptoms, No anxiety Allergies Coded Allergies: Adhesives (Verified Allergy, Severe, TAPE-REDNESS, BLISTERS, 03/19/18) Pneumococcal Vaccine (Verified Allergy, Severe, SHORTNESS OF BREATH, ) Metronidazole (Verified Allergy, Intermediate, skin rash, 03/19/18) allergic to generic form Phenazopyridine (Verified Allergy, Intermediate, abdominal pain/rash, ) Erythromycin (Verified Allergy, Mild, RASH, 03/19/18) Salicylates (Verified Allergy, Unknown, pt states rash with ASA 325 but not ASA 81mg, 03/19/18) Sulfa Antibiotics (Verified Allergy, Unknown, ON MED LIST, 03/19/18) Tetracycline (Verified Allergy, Unknown, RASH, 03/19/18) Morphine (Verified Adverse Reaction, Intermediate, urinary retention - oral morphine only, 03/19/18) Diltiazem (Verified Adverse Reaction, Mild, FLUID RETENTION, 03/19/18) Metoclopramide (Verified Adverse Reaction, Mild, TREMORS, 03/19/18) Bacitracin (Verified Adverse Reaction, Unknown, "MAKES IT WORSE"-OK IF NOT OTC MEDICATION, 03/19/18) OKAY IF NOT OVER THE COUNTER MEDICATION Medications Current Inpatient Medications Medications (Trade) Dose Ordered Sig/Natasha Route Start Time Stop Time Status Last Admin Dose Admin Acetaminophen (Tylenol Tab) 650 mg Q4H PRN PO 03/15/18 18:30 04/14/18 18:29 Future hold 03/19/18 20:01 650 MG Al Hydrox/Mg Hydrox/Simethicone (Maalox Max Susp) 15 ml Q4H PRN PO 03/15/18 18:30 04/14/18 18:29 Magnesium Hydroxide (Milk Of Magnesia Susp) 30 ml Q12H PRN PO 03/15/18 18:30 04/14/18 18:29 Ondansetron HCl (Zofran Inj) 4 mg Q6H PRN IV 03/15/18 18:30 04/14/18 18:29 Albuterol Sulfate (Ventolin 0.083% 2.5MG/3ML Neb) 2.5 mg Q4H PRN INH 03/15/18 18:30 04/14/18 18:29 Albuterol/ Ipratropium (Duoneb) 3 ml Q6R NEB 03/15/18 21:00 04/14/18 20:59 04/01/18 19:40 3 ML Citalopram Hydrobromide (celeXA TAB) 30 mg DAILY PO 03/16/18 09:00 04/15/18 08:59 Future hold 04/01/18 09:37 30 MG Diclofenac Sodium (Voltaren 1% Top Gel) 1 appln QID PRN EXT 03/15/18 19:30 04/14/18 19:29 03/18/18 08:30 1 APPLN Gabapentin (Neurontin Cap) 300 mg BID PO 03/15/18 21:00 04/14/18 20:59 Future hold 04/01/18 20:31 300 MG Levothyroxine Sodium (Synthroid Tab) 100 mcg DAILYBB PO 03/16/18 06:00 04/15/18 06:59 Future hold 04/02/18 06:11 100 MCG Nystatin (Mycostatin Powder) 1 appln TID EXT 03/15/18 21:00 04/14/18 20:59 04/02/18 09:58 1 APPLN Ropinirole HCl (Requip Tab) 0.5 mg HS PO 03/15/18 21:00 04/14/18 20:59 Future hold 04/01/18 20:31 0.5 MG Sucralfate (Carafate Susp) 1 gm QID PO 03/15/18 21:00 04/14/18 20:59 Future hold 04/01/18 20:31 1 GM Apixaban (Eliquis Tab) 5 mg BID PO 03/15/18 21:00 04/14/18 20:59 Future hold 04/01/18 20:25 5 MG Pantoprazole Sodium (Protonix Tab) 40 mg QAM PO 03/16/18 09:00 04/15/18 08:59 Future hold 03/24/18 11:37 40 MG Miscellaneous Information (Order Awaiting Action) 1 ea QS N/A 03/16/18 00:00 04/15/18 00:00 03/18/18 18:49 1 EA Glucose (Glucose 40% Gel) 15-30 GRAMS 15 GRAMS... UD PRN PO 03/15/18 19:00 04/14/18 18:59 Glucose (Glucose Chew Tab) 4-8 Tablets 4 Tabl... UD PRN PO 03/15/18 19:00 04/14/18 18:59 Dextrose (Dextrose 50% 50ML Syringe) 25-50ML 25ML FOR ... UD PRN IV 03/15/18 19:00 04/14/18 18:59 Glucagon (Glucagon Inj) 1 mg UD PRN SQ 03/15/18 19:00 04/14/18 18:59 Carbohydrates (Carbohydrates For Hypoglycemia) 15-30 GRAMS 15 grams if BSG 54-69... UD PRN PO 03/15/18 19:00 04/14/18 18:59 Heparin Sodium (Porcine) (Heparin 10 Unit/ ml 5 ml Flush) 5 ml PRN PRN FLUSH 03/20/18 00:30 04/19/18 00:29 Amiodarone HCl (Cordarone Tab) 200 mg DAILY PO 03/29/18 09:00 04/28/18 08:59 04/01/18 09:37 200 MG Non-Formulary Medication (Non-Formulary Patient'S Own Med) 1 ea DAILY PO 03/22/18 09:00 04/21/18 08:59 03/24/18 11:37 1 EA Hydromorphone HCl (Dilaudid Inj) 0.25 mg Q1H PRN IV 03/23/18 11:30 04/06/18 11:29 04/02/18 08:15 0.25 MG Vancomycin HCl (Consult) 1 ea UD PRN N/A 03/24/18 11:00 04/23/18 10:59 Senna (Senokot Tab) 17.2 mg HS PO 03/24/18 21:00 04/23/18 20:59 Future hold 04/01/18 20:31 17.2 MG Acetaminophen 100 ml @ 400 mls/hr Q8H PRN IV 03/25/18 15:45 04/24/18 15:44 04/02/18 08:16 400 MLS/HR Vancomycin HCl 1250 mg/Sodium Chloride 275 ml @ 125 mls/hr Q18H IV 03/27/18 06:00 04/03/18 05:59 04/02/18 06:11 125 MLS/HR Lorazepam (Ativan Inj) 0.5 mg Q6H PRN IV 03/27/18 18:15 04/26/18 18:14 03/31/18 03:54 0.5 MG Lorazepam 0.5 mg/ Syringe 1 ml @ 1 mls/min Q6H PRN IV 03/27/18 18:45 04/26/18 18:44 Metoclopramide HCl (Reglan Inj) 5 mg Q6H IV. 03/30/18 12:00 04/29/18 11:59 04/02/18 06:11 5 MG Enteral Nutritional Formula (Peptamen 1.5) 1,000 ml UD NG 03/30/18 13:00 04/29/18 12:59 Insulin Aspart (novoLOG ASPART) SLIDING SCALE If C... ACHS SC 04/01/18 07:00 05/01/18 06:59 Prednisone (PredniSONE TAB) 20 mg QAM PO 04/02/18 09:00 05/01/18 08:59 Physical Exam Date Time Temp Pulse Resp B/P (MAP) Pulse Ox O2 Delivery O2 Flow Rate FiO2 04/02/18 10:56 36.8 72 18 111/64 (80) 96 Trach Collar 5.0 04/02/18 08:45 Trach Collar 5.0 04/02/18 07:57 37.9 98 24 144/85 (104) 95 Trach Collar 5.0 04/02/18 04:01 37.1 70 18 108/52 (70) 95 Nasal Cannula 5.0 28 04/01/18 22:57 37.3 86 15 112/62 (79) 97 Trach Collar 6.0 28 04/01/18 20:00 Room Air 04/01/18 19:40 80 20 97 Room Air 04/01/18 18:43 37.7 90 19 110/59 (76) 91 04/01/18 15:14 38.0 89 15 146/82 (103) 91 Room Air General Appearance: no apparent distress, + obese, + pertinent finding ( extremely deconditioned) ENT: + pertinent finding (trach present with trach collar. patient's face is grossly enlarged at jawline above trach) Neck: supple, no JVD Respiratory: no respiratory distress, no accessory muscle use, + decreased breath sounds, + pertinent finding (coarse throughout) Cardiovascular: regular rate, rhythm, + normal peripheral pulses Abdomen: normal bowel sounds, non tender, soft (obese) Neurologic/Psychiatric: normal mood/affect, oriented x 3, + pertinent finding ( drowsy) Laboratory Results Last 24 Hours Test 04/01/18 15:58 04/01/18 20:50 04/02/18 07:23 04/02/18 10:52 Bedside Glucose 153 mg/dl 125 mg/dl 100 mg/dl 105 mg/dl Assessment & Plan Palliative Performance Scale: 20 % Problem list: Weakness Dysphagia/NPO Malnutrition/Deconditioning Respiratory failure 2/2 COPD s/p trach BL pneumonia 2/2 MRSA Goals of care Palliative care recs: -Patient stated she wants to pursue comfort/hospice care and is tired of being in hospital. She does want to continue abx. -Patient nodded head "yes" when I asked if she wanted to eat/drink and allow permissive aspiration despite the risk of aspiration and pneumonia. -Patient's orientation status is difficult to assess, so she gave permission to speak with her daughter Grisel. I called Grisel and left her a message, no return call. Dr. Georges spoke with patient's daughter at bedside who stated she did not want palliative care team to be involved. -Patient does have living will on file that states "The only way I would want any life support procedures is if i would have a fairly healthy life and not be a burden to my family. If tests show I would be in a vegetable state with no responses- then I would not want any procedures to prolong life." She names her daughter Grisel Philip and Tina Blakely as POA. -Given patient's multiple medical problems and her wish to remain out of the hospital, she would certainly qualify for hospice if they wish to proceed that way. Thank you kindly for this consult. We will follow peripherally and be available if patient's daughter wishes to have our service on board. Total time spent 50 minutes with >50% of time spent at bedside with patient counseling and discussing goals of care.
[2018-04-02] MEDS: BOOST VANILLA PUDDING CUP PO SCH (16:57)
[2018-04-02] MEDS: SENNA 8.6 MG TAB PO SCH (20:54)
[2018-04-02] MEDS: ROPINIROLE HCL 0.25 MG TAB PO SCH (20:55)
--- NOTE | 2018-04-02 22:00 | Progress Note ---
Subjective Date of Service: Apr 02, 2018. Subjective Pt evaluation today including: conversation w/ patient, conversation w/ family , physical exam Patient was seen with daughter at bedside. Patient is having dinner and was able to eat it all. Daughter states she is improving due to her eating today. She does not want palliative care involved. Problem List Medical Problems: (1) Cervical strain Status: Acute (2) Contusion of multiple sites Status: Acute (3) COPD exacerbation Status: Acute (4) Fall Status: Acute (5) Fall from chair, initial encounter Status: Acute (6) Fatigue Status: Acute (7) Head injury Status: Acute (8) Head injury Status: Acute (9) Hip pain Status: Acute (10) Hypocalcemia Status: Acute (11) Hypoxia Status: Acute (12) Hypoxia Status: Acute (13) Lower extremity edema Status: Acute (14) PNA (pneumonia) Status: Acute (15) Pneumonia Status: Acute (16) Pneumonitis Status: Acute (17) Reactive airway disease Status: Acute (18) Right flank pain Status: Acute (19) Sepsis Status: Acute (20) Sepsis Status: Acute (21) Syncope Status: Acute (22) Traumatic compression fracture of third thoracic vertebra Status: Acute (23) Vaginal yeast infection Status: Acute (24) Weakness Status: Acute (25) Yeast vaginitis Status: Acute Review of Systems Constitutional: + fatigue Respiratory: + cough, + sputum, No dyspnea at rest Cardiac: No chest pain Abdomen: + pain, + constipation, No nausea, No vomiting Psychiatric: + depression symptoms All Other Systems: Reviewed and Negative Objective Vital Signs Date Time Temp Pulse Resp B/P (MAP) Pulse Ox O2 Delivery O2 Flow Rate FiO2 04/02/18 19:52 37.0 101 20 119/73 (88) 93 Trach Collar 04/02/18 19:25 111 20 93 Trach Collar 28.0 04/02/18 17:06 95 Trach Collar 5.0 04/02/18 15:37 36.7 84 16 129/66 (87) 95 Trach Collar 04/02/18 14:29 78 20 95 Trach Collar 28.0 04/02/18 10:56 36.8 72 18 111/64 (80) 96 Trach Collar 5.0 04/02/18 08:45 Trach Collar 5.0 04/02/18 07:57 37.9 98 24 144/85 (104) 95 Trach Collar 5.0 04/02/18 04:01 37.1 70 18 108/52 (70) 95 Nasal Cannula 5.0 28 04/01/18 22:57 37.3 86 15 112/62 (79) 97 Trach Collar 6.0 28 Physical Exam Comments: General Appearance: no apparent distress, + obese, + pertinent finding ( cushingnoid facies) ENT: pharynx normal (no thrush, MMM) Neck: no JVD, + pertinent finding (trach in place; copious, thick, delgado-yellow secretions present in trach opening) Respiratory/Chest: + decreased breath sounds (bases), + pertinent finding ( very course BS b/l ) Cardiovascular: regular rate, rhythm, no gallop Abdomen: no organomegaly, + distended (no change from yesterday's exam), + tenderness Extremities: no pedal edema Neurologic/Psychiatric: alert, oriented x 3, + depressed affect (crying/ tearful ) Skin: + pertinent finding (PICC line, RUE - clean ; ecchymoses on legs, arms ) Laboratory Results Last 24 Hours Test 04/02/18 07:23 04/02/18 10:52 04/02/18 16:09 04/02/18 20:04 Bedside Glucose 100 mg/dl 105 mg/dl 178 mg/dl 132 mg/dl Assessment and Plan 83yo female: 1. b/l pneumonia - 2nd to MRSA - day #10 of therapy. Continue vanco for MRSA. Plan 10-14 days of Rx. Could always change to zyvox in marva of vanco. Patient had one episode of fever this AM. Patient has a trach due likely to her weight causing an obstruction. 2. new-onset a. fib - converted to NSR earlier this stay with amiodarone. Resumed amiodarone by mouth along w/ eliquis. 3. ileus - ongoing. Patient pulled out her NG tube 2 nights ago. Fortunately she has not had nausea/emesis. With that said she has had no bowel movement. Dr. Oleary added reglan IV q6h. Will continue this for now. Allow diet as desired/tolerated. 4. acute/chronic hypoxic respiratory failure - s/p trach placement. Acute component 2nd to #1. 5. dysphagia - patient refusing permanent feeding tube. She pulled out her NG tube 2 nights ago as well. Speech re-evaluated her 03/30/18 w/ bedside swallow and patient placed back on thickened liquids. Tolerating such thus far. Allow [facility] soft diabetic diet as desired/tolerated. Patient today tolerated soft diet. 6. protein calorie malnutrition, moderate-severe degree - again she is refusing permanent feeding tube. Ongoing issue. Doubt it will improve. 7. COPD with mild exacerbation - wean to prednisone 20mg daily in the AM.. 8. H/O DVTs - noted; resumed eliquis. 9. CKD stage 3 - creatinine stable. 10. Hypothyroidism - compensated; cont synthroid. 11. T2DM - controlled. 12. chronic diastolic CHF - compensated. In fact she has lost weight in the hospital. 13. right-sided elevated Hemidiaphragm - S/P Plication in the past. 14. depression - resumed SSRI. Consider titration and/or addition of additional medication. 15. HTN - controlled 16. FEN - stop fluids. Diet if desired. Replace K with IV KCL today. 17. DVT proph - eliquis. 18. RLS - requip. patient overall doing very, very poorly is profoundly weak/deconditioned (hasn't bed out of bed in 2+ weeks) little to no appetite ongoing depression despite IV vanco had low-grade temps today pt now DNR I brought up the idea of palliative care to the daughter, she refuses and states she is not there at the moment. Spent 35 minutes in management of case. Given that patient and family do not want palliative care involvement, Juli fernandez is back on the table. Continued [facility] stay due to: fever, inadequate po fluid intake, inadequate oral pain control, voiding difficulties, ambulation difficulties, multiple IV medications needed, other (ileus, pneumonia, etc) Discharge planning: uncertain
[2018-04-03] VITALS (14 sets, daily range): BP systolic 98–133; BP diastolic 64–81; PULSE 72–98; TEMP 36.6–37.4; O2SAT 95–99
[2018-04-03] MEDS: METOCLOPRAMIDE HCL INJ 5 MG/ML 2 ML VIAL IV. SCH ×5 (00:15→21:04)
[2018-04-03] MEDS: VANCOMYCIN IV 1,250 MG in SODIUM CHLORIDE 0.9% 250ML 250 ML IV SCH ×2 (00:15→17:20)
[2018-04-03] MEDS: ALBUT/IPRATROP 3MG/0.5MG NEB 3 ML VIAL NEB SCH ×4 (01:50→19:30)
[2018-04-03] MEDS: LEVOTHYROXINE 100 MCG TAB PO SCH (05:55)
[2018-04-03] MEDS: INSULIN ASPART 100 UNITS/ML 3 ML PEN SC SCH ×4 (07:00→21:00)
[2018-04-03] MEDS: PANTOprazole SOD 40 MG TAB PO SCH (08:03)
[2018-04-03] MEDS: BOOST VANILLA PUDDING CUP PO SCH ×2 (08:03→17:17)
[2018-04-03] MEDS: CITALOPRAM 20 MG TAB PO SCH (08:04)
[2018-04-03] MEDS: APIXABAN 2.5 MG TAB PO SCH ×2 (08:04→21:02)
[2018-04-03] MEDS: AMIODARONE 200 MG TAB PO SCH (08:04)
[2018-04-03] MEDS: GABAPENTIN 300 MG CAP PO SCH ×2 (08:04→21:02)
[2018-04-03] MEDS: SUCRALFATE 1 GM/10 ML UDC PO SCH ×4 (08:06→21:01)
[2018-04-03] MEDS: NYSTATIN POWDER 15GM BTL EXT SCH ×3 (08:06→21:01)
--- NOTE | 2018-04-03 15:17 | Pulmonology Progress Note ---
Pulmonary Progress Note Date of Service Apr 03, 2018. Attending Dr. Oleary Subjective No clinical changes since yesterday. The patient is afebrile, her oral intake has been poor, tracheostomy tube has not been changed yet. Objective Patient was stable saturations and notable tracheal aspirate on tracheal suctioning: Was asleep when I walked in the room showing no signs of respiratory insufficiency PmHx: Pulmonary embolism, sleep apnea/OHV, COPD, oxygen dependent 2-5L, diaphragmatic insufficiency/status post fundoplication, steroid-induced myopathy , orthostatic hypotension, hypertension, sclerotic aortic valve, chronic lymphedema, paroxysmal atrial fibrillation, chronic shortness of breath, C diff positive, recurrent UTIs Vital Signs/Physical Exam: SaO2: 90-97% on Venti-mask 21-35% Tmax: 37.2 Neck: Fresh tracheostomy minimal bleeding no signs of breakdown, mild sub-q fremitus Tracheostomy: Mucus secretions noted on tracheostomy suctioning Respiratory: Rhonchi appreciated right lower lobe Cardiac: S1-S2 Abdomen: Positive bowel sounds soft non-tender to deep palpation Labs: Procalcitonin: 0.5 CRP: 0.52 elevated Lactic acid: 1.0 WBC: 6K CT of the abdomen 03/21/2018: Shows continuation bilateral right greater than left atelectasis, no acute changes Urine: Rabia Glabrata Tracheal Aspirate: Staphylococcus Aureus Current Pulmonary Medications/antibiotics/antifungals: 1. Methylprednisolone 40 mg IV daily 2. Caspofungin 50 mg Q 24 (Day#: 3) 3. Spiriva 2 puffs b.i.d. 4. Pantoprazole 40 mg q.day 5. Duo nebs q.6 hours 6. Vancomycin (Day#: 2) 7. Cefepime (Day#: 2) Microbiology URINE: (07/24/15) Escherichia coli (09/01/15) Enterococcus faecalis (12/08/15) Lactobacillus species (11/25/16) Citrobacter species (07/07/17) Escherichia coli (07/24/17) Escherichia coli (03/20/18) Rabia Glabrata Respiratory Bronchial washing (06/29/2010) MRSA Bronchial washing left upper lobe (01/25/16) Fungal Species Right lower lobe bronchial washing (06/30/16) Fungal Species Bronchial washing right middle lobe (11/28/16) MRSA Bronchial washing right middle (01/15/17) Fungal Species Bronchial washing right and left lower lobe (10/09/2017) Bordetella Bronchiseptica Tracheal Aspirate (03/24/18): Staphylococcus Aureus Blood (04/24/16) Propionibacterium acnes Skin (04/17/17) right lower extremity: Pseudomonas aeruginosa, Enterococcus faecalis Stool C. difficile testing for 06/07/2018: Positive Physical exam on 03/26/2018 showed low-grade temperature yesterday, S1-S2 regular rate and rhythm, she does have rhonchi bilaterally, copious amount of secretions from the tracheostomy tube, edema in the periphery, abdomen is benign. Physical exam on 03/27/2018 showed no fever, vital signs are stable, no stridor, distant rhonchi bilaterally, remains with moderate amount of secretions, abdomen is nontender but soft, vague pain mainly on the left and right lower quadrant, minimal edema in the periphery. Physical exam on 03/28/2018 showed afebrile patient, vital signs are stable, no stridor, rhonchi bilaterally, S1 S2 regular rate and rhythm, trach site appeared well maintained. Abdomen is distended tympanic. Edema in the periphery with skin changes due to chronic steroids use. Physical exam on 03/29/2018 showed stable vital signs, S1-S2 regular rate and rhythm, trach site appears well-maintained, subcu emphysema is improving, distant breath sounds bilaterally, abdomen remains distended and tympanic, umbilical hernia, edema in the periphery, cushingoid type. KUB was reviewed after placement of NG tube which showed the tip of the NG tube is sub-phrenic. Physical exam on 03/30/2018 showed vital signs are stable, S1-S2 regular rate and rhythm, less secretions from the tracheostomy tube noted, subcu emphysema almost resolved, no stridor, rhonchi bilaterally, abdomen is slightly distended with umbilical hernia, tympanic, edema in the periphery. Her laboratory also showed no leukocytosis, no new organism, she does have MRSA in the sputum. Physical exam on 03/31/2018 showed vital signs are stable, S1-S2, A. fib, tracheostomy site is well maintained, remains with significant secretions and suctioned at the bedside, rhonchi bilaterally, abdomen is less distended, nontender, trace edema in the periphery. Glucose remains elevated. Physical exam on 04/01/2018 showed stable vital signs, remains in A. fib but rate controlled, trach site appeared clean, distant breath sounds bilaterally, abdomen is softer and benign nondistended with positive bowel sounds, trace edema in the periphery. Labs were reviewed, no new imaging. Physical exam on 04/02/2018 showed well-maintained tracheostomy site, cushingoid appearance, vital signs are stable, she is on minimal oxygen only for humidification, minimal secretions from the inner cannula, S1-S2 regular rate and rhythm, distant breath sounds, abdomen is soft, trace edema in the periphery. No new imaging and no new labs. Physical exam on 04/03/2018 showed elderly female, no apparent distress, overall lethargic, tracheostomy tube site appeared with some irritation, S1-S2 regular rate and rhythm, distant breath sounds bilaterally, abdomen is benign, no edema. Laboratory without any changes. Assessment & Plan 1. Morbid obesity with BMI more than 30. 2. Obstructive sleep apnea with CO2 retention. 3. COPD with cor pulmonale. 4. Acute on chronic respiratory failure, currently with tracheostomy tube. 5. A. fib with RVR. 6. Aspiration pneumonitis. 7. Subcu emphysema, iatrogenic, resolving. 8. Mild CHF with bilateral pleural effusion. 9. chronic hypercapnic respiratory failure. 10. Diaphragm dysfunction status post diaphragm plication. 11. severe osteoarthritis with thoracolumbar spinal fixation. Plan: 1. Antibiotic per infectious disease. 2. Continue with prednisone 20 mg p.o. daily. 3. Advance oral intake as tolerated. Likely she will continue to be on soft diet. 4. Continue DuoNeb. 5. Continue Reglan before meals and at bedtime. 6. Palliative care consult. 7. Patient is DNR. 8. Goals of care needs to be addressed realistically with the patient and her daughter. 9. The patient declined feeding tube placement altogether. 10. The trach tube needs to be changed, it has been placed 10 days ago, the site appeared to be irritated. Discussed with the staff at the bedside. Thank you, will follow. Data Medications: Current Inpatient Medications Medications (Trade) Dose Ordered Sig/Natasha Route Start Time Stop Time Status Last Admin Dose Admin Acetaminophen (Tylenol Tab) 650 mg Q4H PRN PO 03/15/18 18:30 04/14/18 18:29 Future hold 03/19/18 20:01 650 MG Al Hydrox/Mg Hydrox/Simethicone (Maalox Max Susp) 15 ml Q4H PRN PO 03/15/18 18:30 04/14/18 18:29 Magnesium Hydroxide (Milk Of Magnesia Susp) 30 ml Q12H PRN PO 03/15/18 18:30 04/14/18 18:29 Ondansetron HCl (Zofran Inj) 4 mg Q6H PRN IV 03/15/18 18:30 04/14/18 18:29 Albuterol Sulfate (Ventolin 0.083% 2.5MG/3ML Neb) 2.5 mg Q4H PRN INH 03/15/18 18:30 04/14/18 18:29 Albuterol/ Ipratropium (Duoneb) 3 ml Q6R NEB 03/15/18 21:00 04/14/18 20:59 04/03/18 14:12 3 ML Citalopram Hydrobromide (celeXA TAB) 30 mg DAILY PO 03/16/18 09:00 04/15/18 08:59 Future hold 04/03/18 08:04 30 MG Diclofenac Sodium (Voltaren 1% Top Gel) 1 appln QID PRN EXT 03/15/18 19:30 04/14/18 19:29 03/18/18 08:30 1 APPLN Gabapentin (Neurontin Cap) 300 mg BID PO 03/15/18 21:00 04/14/18 20:59 Future hold 04/03/18 08:04 300 MG Levothyroxine Sodium (Synthroid Tab) 100 mcg DAILYBB PO 03/16/18 06:00 04/15/18 06:59 Future hold 04/03/18 05:55 100 MCG Nystatin (Mycostatin Powder) 1 appln TID EXT 03/15/18 21:00 04/14/18 20:59 04/03/18 12:28 1 APPLN Ropinirole HCl (Requip Tab) 0.5 mg HS PO 03/15/18 21:00 04/14/18 20:59 Future hold 04/02/18 20:55 0.5 MG Sucralfate (Carafate Susp) 1 gm QID PO 03/15/18 21:00 04/14/18 20:59 Future hold 04/03/18 12:26 1 GM Apixaban (Eliquis Tab) 5 mg BID PO 03/15/18 21:00 04/14/18 20:59 Future hold 04/03/18 08:04 5 MG Pantoprazole Sodium (Protonix Tab) 40 mg QAM PO 03/16/18 09:00 04/15/18 08:59 Future hold 04/03/18 08:03 40 MG Miscellaneous Information (Order Awaiting Action) 1 ea QS N/A 03/16/18 00:00 04/15/18 00:00 03/18/18 18:49 1 EA Glucose (Glucose 40% Gel) 15-30 GRAMS 15 GRAMS... UD PRN PO 03/15/18 19:00 04/14/18 18:59 Glucose (Glucose Chew Tab) 4-8 Tablets 4 Tabl... UD PRN PO 03/15/18 19:00 04/14/18 18:59 Dextrose (Dextrose 50% 50ML Syringe) 25-50ML 25ML FOR ... UD PRN IV 03/15/18 19:00 04/14/18 18:59 Glucagon (Glucagon Inj) 1 mg UD PRN SQ 03/15/18 19:00 04/14/18 18:59 Carbohydrates (Carbohydrates For Hypoglycemia) 15-30 GRAMS 15 grams if BSG 54-69... UD PRN PO 03/15/18 19:00 04/14/18 18:59 Heparin Sodium (Porcine) (Heparin 10 Unit/ ml 5 ml Flush) 5 ml PRN PRN FLUSH 03/20/18 00:30 04/19/18 00:29 Amiodarone HCl (Cordarone Tab) 200 mg DAILY PO 03/29/18 09:00 04/28/18 08:59 04/03/18 08:04 200 MG Non-Formulary Medication (Non-Formulary Patient'S Own Med) 1 ea DAILY PO 03/22/18 09:00 04/21/18 08:59 04/03/18 08:07 1 EA Hydromorphone HCl (Dilaudid Inj) 0.25 mg Q1H PRN IV 03/23/18 11:30 04/06/18 11:29 04/02/18 08:15 0.25 MG Vancomycin HCl (Consult) 1 ea UD PRN N/A 03/24/18 11:00 04/23/18 10:59 Senna (Senokot Tab) 17.2 mg HS PO 03/24/18 21:00 04/23/18 20:59 Future hold 04/02/18 20:54 17.2 MG Acetaminophen 100 ml @ 400 mls/hr Q8H PRN IV 03/25/18 15:45 04/24/18 15:44 04/02/18 08:16 400 MLS/HR Vancomycin HCl 1250 mg/Sodium Chloride 275 ml @ 125 mls/hr Q18H IV 03/27/18 06:00 04/07/18 05:59 04/03/18 00:15 125 MLS/HR Lorazepam (Ativan Inj) 0.5 mg Q6H PRN IV 03/27/18 18:15 04/26/18 18:14 03/31/18 03:54 0.5 MG Lorazepam 0.5 mg/ Syringe 1 ml @ 1 mls/min Q6H PRN IV 03/27/18 18:45 04/26/18 18:44 Metoclopramide HCl (Reglan Inj) 5 mg Q6H IV. 03/30/18 12:00 04/29/18 11:59 04/03/18 12:28 5 MG Enteral Nutritional Formula (Peptamen 1.5) 1,000 ml UD NG 03/30/18 13:00 04/29/18 12:59 Insulin Aspart (novoLOG ASPART) SLIDING SCALE If C... ACHS SC 04/01/18 07:00 05/01/18 06:59 04/02/18 17:28 4 UNITS Prednisone (PredniSONE TAB) 20 mg QAM PO 04/02/18 09:00 05/01/18 08:59 04/03/18 08:03 20 MG Enteral Nutritional Formula (Boost Pudding) 1 cup BIDM PO 04/02/18 16:45 05/02/18 16:44 04/03/18 08:03 1 CUP Vital Signs: Date Time Temp Pulse Resp B/P (MAP) Pulse Ox O2 Delivery O2 Flow Rate FiO2 04/03/18 14:12 87 20 95 BiPAP/CPAP 28.0 04/03/18 12:00 36.6 80 20 120/64 (82) 98 T-piece Trach Collar 04/03/18 08:00 96 BiPAP 28.0 28 04/03/18 08:00 98 04/03/18 07:09 72 96 28 04/03/18 07:08 72 25 96 BiPAP/CPAP 28.0 04/03/18 06:42 36.9 88 18 126/69 (88) 97 BiPAP 04/03/18 04:38 37.4 89 22 98/67 (77) 99 BiPAP 04/03/18 00:01 97 BiPAP 28 04/02/18 23:35 36.8 97 26 137/72 (93) 99 BiPAP 04/02/18 23:02 68 97 28 04/02/18 19:52 37.0 101 20 119/73 (88) 93 Trach Collar 04/02/18 19:25 111 20 93 Trach Collar 28.0 04/02/18 17:06 95 Trach Collar 5.0 04/02/18 15:37 36.7 84 16 129/66 (87) 95 Trach Collar Laboratory Results: Last 24 Hours Test 04/02/18 16:09 04/02/18 20:04 04/03/18 07:28 04/03/18 11:27 Bedside Glucose 178 mg/dl 132 mg/dl 116 mg/dl 155 mg/dl
[2018-04-03] MEDS: ROPINIROLE HCL 0.25 MG TAB PO SCH (21:01)
[2018-04-03] MEDS: SENNA 8.6 MG TAB PO SCH (21:03)
--- NOTE | 2018-04-03 22:04 | Progress Note ---
Subjective Date of Service: Apr 03, 2018. Subjective Pt evaluation today including: conversation w/ patient, physical exam Patient has no new complaints today. Problem List Medical Problems: (1) Cervical strain Status: Acute (2) Contusion of multiple sites Status: Acute (3) COPD exacerbation Status: Acute (4) Fall Status: Acute (5) Fall from chair, initial encounter Status: Acute (6) Fatigue Status: Acute (7) Head injury Status: Acute (8) Head injury Status: Acute (9) Hip pain Status: Acute (10) Hypocalcemia Status: Acute (11) Hypoxia Status: Acute (12) Hypoxia Status: Acute (13) Lower extremity edema Status: Acute (14) PNA (pneumonia) Status: Acute (15) Pneumonia Status: Acute (16) Pneumonitis Status: Acute (17) Reactive airway disease Status: Acute (18) Right flank pain Status: Acute (19) Sepsis Status: Acute (20) Sepsis Status: Acute (21) Syncope Status: Acute (22) Traumatic compression fracture of third thoracic vertebra Status: Acute (23) Vaginal yeast infection Status: Acute (24) Weakness Status: Acute (25) Yeast vaginitis Status: Acute Review of Systems Constitutional: + fatigue Respiratory: + cough, + sputum, No dyspnea at rest Cardiac: No chest pain Abdomen: + pain, + constipation, No nausea, No vomiting Psychiatric: + depression symptoms Objective Vital Signs Date Time Temp Pulse Resp B/P (MAP) Pulse Ox O2 Delivery O2 Flow Rate FiO2 04/03/18 20:43 36.7 90 18 133/81 (98) 97 T-piece 8.0 28 Trach Collar 04/03/18 20:00 98 Trach Collar 28.0 04/03/18 19:49 93 20 98 Trach Collar 28.0 04/03/18 16:30 36.7 91 20 122/70 (87) 97 T-piece 6.0 28 Trach Collar 04/03/18 14:12 87 20 95 BiPAP/CPAP 28.0 04/03/18 12:00 36.6 80 20 120/64 (82) 98 T-piece Trach Collar 04/03/18 08:00 96 BiPAP 28.0 28 04/03/18 08:00 98 04/03/18 07:09 72 96 28 04/03/18 07:08 72 25 96 BiPAP/CPAP 28.0 7/17/18 06:42 36.9 88 18 126/69 (88) 97 BiPAP 04/03/18 04:38 37.4 89 22 98/67 (77) 99 BiPAP 04/03/18 00:01 97 BiPAP 28 04/02/18 23:35 36.8 97 26 137/72 (93) 99 BiPAP 04/02/18 23:02 68 97 28 Physical Exam Comments: General Appearance: no apparent distress, + obese, + pertinent finding ( cushingnoid facies) ENT: pharynx normal (no thrush, MMM) Neck: no JVD, + pertinent finding (trach in place; copious, thick, delgado-yellow secretions present in trach opening, site appears more irritated) Respiratory/Chest: + decreased breath sounds (bases), + pertinent finding ( very course BS b/l ) Cardiovascular: regular rate, rhythm, no gallop Abdomen: no organomegaly, + distended (no change from yesterday's exam), + tenderness Extremities: no pedal edema Neurologic/Psychiatric: alert, oriented x 3, calm today. Skin: + pertinent finding (PICC line, RUE - clean ; ecchymoses on legs, arms ) Laboratory Results Last 24 Hours Test 04/03/18 07:28 04/03/18 11:27 04/03/18 16:32 04/03/18 20:45 Bedside Glucose 116 mg/dl 155 mg/dl 195 mg/dl 190 mg/dl Assessment and Plan 83yo female: 1. b/l pneumonia - 2nd to MRSA - day #11 of therapy. Continue vanco for MRSA. Plan 10-14 days of Rx. Could always change to zyvox in marva of vanco. Patient had no fevers today, nor overnight Patient has a trach due likely to her weight, large neck and cushinoid features causing an obstruction. Patient currently on high flow oxygen. Will obtain ENT consult to downsize trach. 2. new-onset a. fib - converted to NSR earlier this stay with amiodarone. Resumed amiodarone by mouth along w/ eliquis. 3. ileus - ongoing. Patient pulled out her NG tube 2 nights ago. Fortunately she has not had nausea/emesis. With that said she has had no bowel movement. Will CONTINUE reglan IV q6h. Allow diet as desired/tolerated. Despite lack of BM, patient is not worse. May consider lactulose. 4. acute/chronic hypoxic respiratory failure - s/p trach placement. Acute component 2nd to #1. 5. dysphagia - patient refusing permanent feeding tube. She pulled out her NG tube 2 nights ago as well. Speech re-evaluated her 03/30/18 w/ bedside swallow and patient placed back on thickened liquids. Tolerating such thus far. Allow [facility] soft diabetic diet as desired/tolerated. Patient today tolerated soft diet. 6. protein calorie malnutrition, moderate-severe degree - again she is refusing permanent feeding tube. Ongoing issue. Doubt it will improve. 7. COPD with mild exacerbation - wean to prednisone 20mg daily in the AM.. 8. H/O DVTs - noted; resumed eliquis. 9. CKD stage 3 - creatinine stable. 10. Hypothyroidism - compensated; cont synthroid. 11. T2DM - controlled. 12. chronic diastolic CHF - compensated. In fact she has lost weight in the hospital. 13. right-sided elevated Hemidiaphragm - S/P Plication in the past. 14. depression - resumed SSRI. Consider titration and/or addition of additional medication. 15. HTN - controlled 16. FEN - stop fluids. Diet if desired. Replace K with IV KCL today. 17. DVT proph - eliquis. 18. RLS - requip. pt now DNR Spent 35 minutes in management of case. Given that patient and family do not want palliative care involvement, L tach is back on the table. However, had peer to peer with insurance company. This was denied. May revisit idea, in 3 days if patient improves. However she has multiple hurdles to go through, deconditioning, ileus, depression. Continued [facility] stay due to: fever, inadequate po fluid intake, inadequate oral pain control, voiding difficulties, ambulation difficulties, multiple IV medications needed, other (ileus, pneumonia, etc) Discharge planning: uncertain
[2018-04-04] VITALS (13 sets, daily range): BP systolic 113–139; BP diastolic 60–75; PULSE 71–91; TEMP 36.6–37.2; O2SAT 95–98
[2018-04-04] MEDS: ALBUT/IPRATROP 3MG/0.5MG NEB 3 ML VIAL NEB SCH ×4 (02:17→19:07)
[2018-04-04] MEDS: METOCLOPRAMIDE HCL INJ 5 MG/ML 2 ML VIAL IV. SCH ×3 (05:29→17:26)
[2018-04-04] MEDS: LEVOTHYROXINE 100 MCG TAB PO SCH (05:29)
[2018-04-04] MEDS: INSULIN ASPART 100 UNITS/ML 3 ML PEN SC SCH ×4 (07:00→20:21)
[2018-04-04] MEDS: NYSTATIN POWDER 15GM BTL EXT SCH ×3 (07:59→21:13)
[2018-04-04] MEDS: BOOST VANILLA PUDDING CUP PO SCH ×2 (07:59→17:25)
[2018-04-04] MEDS: AMIODARONE 200 MG TAB PO SCH (08:00)
[2018-04-04] MEDS: SUCRALFATE 1 GM/10 ML UDC PO SCH ×4 (08:00→21:14)
[2018-04-04] MEDS: CITALOPRAM 20 MG TAB PO SCH (08:00)
[2018-04-04] MEDS: APIXABAN 2.5 MG TAB PO SCH ×2 (08:01→21:14)
[2018-04-04] MEDS: GABAPENTIN 300 MG CAP PO SCH ×2 (08:01→21:16)
[2018-04-04] MEDS: PANTOprazole SOD 40 MG TAB PO SCH (08:01)
--- NOTE | 2018-04-04 08:31 | DIAGNOSTIC IMAGING REPORT ---
KUB HISTORY: Acute generalized abdominal pain with constipation constipation COMPARISON: KUB 03/29/2018. FINDINGS: Interval removal of the previously described enteric tube. Surgical clips are again seen projecting over the abdominal right upper quadrant. Retained enteric contrast is seen throughout the colon with mild progression from comparison study. Moderate volume of stool material is intermixed with the enteric contrast. Mild gaseous distention of the large bowel without evidence of small bowel obstruction. Renal shadows are obscured. No definite urolith identified. Posterior joe and screw fusion hardware of the thoracolumbar spine. Degenerative changes of the hips and pelvis. Probable phleboliths about the central pelvis with arterial calcifications noted. IMPRESSION: 1. Suggested constipation with persistent retained enteric contrast throughout the colon. 2. Nonobstructive bowel gas pattern. 3. Interval removal of the enteric tube. Electronically signed by: Rey Campos M.D. 04/04/2018 8:30 AM Dictated Date/Time: 04/04/2018 8:27 AM
[2018-04-04 08:32] LABS: BASO % 0.2 %; BASO ABS # 0.01 K/uL (0-0.2); EOS % 0.5 %; EOS ABS # 0.03 K/uL (0-0.5); HEMATOCRIT 33.8 % (37-47); HEMOGLOBIN 10.7 g/dL (12.0-16.0); IG# 0.08 K/uL (0.00-0.02); LYMPH ABS # 0.94 K/uL (1.2-3.4); MEAN CELL VOLUME 95.8 fL (80-100); MEAN CORPUSCULAR HEMOGLOBIN 30.3 pg (25-34); MEAN CORPUSCULAR HGB CONC 31.7 g/dl (32-36); MEAN PLATELET VOLUME 10.6 fL (7.4-10.4); MONO % 10.3 %; MONO ABS # 0.57 K/uL (0.11-0.59); NEUT % 70.6 %; NUCLEATED RED BLOOD CELL ABS 0.03 K/uL (0-0); PLATELET COUNT 159 K/uL (130-400); RED CELL DISTRIBUTION WIDTH CV 16.9 % (11.5-14.5); RED CELL DISTRIBUTION WIDTH SD 59.3 fL (36.4-46.3); WHITE BLOOD COUNT 5.53 K/uL (4.8-10.8)
[2018-04-04 08:54] LABS: ALBUMIN 2.6 gm/dl (3.4-5.0); CALCIUM 8.1 mg/dl (8.5-10.1); CREATININE 3.02 mg/dl (0.60-1.20); PHOSPHORUS 3.5 mg/dl (2.5-4.9); POTASSIUM 3.1 mmol/L (3.5-5.1); TOTAL PROTEIN 5.7 gm/dl (6.4-8.2)
--- NOTE | 2018-04-04 13:46 | Pharmacy Progress Note ---
Pharmacy Abx Dose Short Note Date of Service Apr 04, 2018. Assessment & Plan Assessment 83 year old female receiving vancomycin for treatment of MRSA PNA. Day #08/31 of antimicrobial therapy. Patient's trough levels have been therapeutic and SCr has been stable. However, SCr bumped significantly to 3.0 this morning. Vancomycin dose was put on hold this morning and a STAT vancomycin trough level was ordered. Plan Vancomycin * Trough level of 39 mcg/mL is supratherapeutic. * Vanco on hold for now, confirmed with Dr. Nelson that vancomycin is to be continued and pharmacy is to follow (last day of therapy 04/06) * Goal trough level: 15-20 mcg/mL * Random level ordered for: 04/05/18 with AM labs to determine when vancomycin can be re-dosed Pharmacy will continue to follow and will adjust dose/frequency as necessary. Thank you.
[2018-04-04] MEDS: LACTATED RINGER'S 1000ML 1,000 ML IV SCH ×2 (13:57→21:17)
--- NOTE | 2018-04-04 15:20 | Pulmonology Progress Note ---
Pulmonary Progress Note Date of Service Apr 04, 2018. Attending Dr. Anirudh Baum The patient continued to be lethargic, she has significant secretions today from the tracheostomy tube. Hemodynamically stable overnight. She denies any pain or shortness of breath. No recurrence of ileus nausea or vomiting and no diarrhea. Objective Patient was stable saturations and notable tracheal aspirate on tracheal suctioning: Was asleep when I walked in the room showing no signs of respiratory insufficiency PmHx: Pulmonary embolism, sleep apnea/OHV, COPD, oxygen dependent 2-5L, diaphragmatic insufficiency/status post fundoplication, steroid-induced myopathy , orthostatic hypotension, hypertension, sclerotic aortic valve, chronic lymphedema, paroxysmal atrial fibrillation, chronic shortness of breath, C diff positive, recurrent UTIs Vital Signs/Physical Exam: SaO2: 90-97% on Venti-mask 21-35% Tmax: 37.2 Neck: Fresh tracheostomy minimal bleeding no signs of breakdown, mild sub-q fremitus Tracheostomy: Mucus secretions noted on tracheostomy suctioning Respiratory: Rhonchi appreciated right lower lobe Cardiac: S1-S2 Abdomen: Positive bowel sounds soft non-tender to deep palpation Labs: Procalcitonin: 0.5 CRP: 0.52 elevated Lactic acid: 1.0 WBC: 6K CT of the abdomen 03/21/2018: Shows continuation bilateral right greater than left atelectasis, no acute changes Urine: Rabia Glabrata Tracheal Aspirate: Staphylococcus Aureus Current Pulmonary Medications/antibiotics/antifungals: 1. Methylprednisolone 40 mg IV daily 2. Caspofungin 50 mg Q 24 (Day#: 3) 3. Spiriva 2 puffs b.i.d. 4. Pantoprazole 40 mg q.day 5. Duo nebs q.6 hours 6. Vancomycin (Day#: 2) 7. Cefepime (Day#: 2) Microbiology URINE: (07/24/15) Escherichia coli (09/01/15) Enterococcus faecalis (12/08/15) Lactobacillus species (11/25/16) Citrobacter species (07/07/17) Escherichia coli (07/24/17) Escherichia coli (03/20/18) Rabia Glabrata Respiratory Bronchial washing (06/29/2010) MRSA Bronchial washing left upper lobe (01/25/16) Fungal Species Right lower lobe bronchial washing (06/30/16) Fungal Species Bronchial washing right middle lobe (11/28/16) MRSA Bronchial washing right middle (01/15/17) Fungal Species Bronchial washing right and left lower lobe (10/09/2017) Bordetella Bronchiseptica Tracheal Aspirate (03/24/18): Staphylococcus Aureus Blood (04/24/16) Propionibacterium acnes Skin (04/17/17) right lower extremity: Pseudomonas aeruginosa, Enterococcus faecalis Stool C. difficile testing for 06/07/2018: Positive Physical exam on 03/26/2018 showed low-grade temperature yesterday, S1-S2 regular rate and rhythm, she does have rhonchi bilaterally, copious amount of secretions from the tracheostomy tube, edema in the periphery, abdomen is benign. Physical exam on 03/27/2018 showed no fever, vital signs are stable, no stridor, distant rhonchi bilaterally, remains with moderate amount of secretions, abdomen is nontender but soft, vague pain mainly on the left and right lower quadrant, minimal edema in the periphery. Physical exam on 03/28/2018 showed afebrile patient, vital signs are stable, no stridor, rhonchi bilaterally, S1 S2 regular rate and rhythm, trach site appeared well maintained. Abdomen is distended tympanic. Edema in the periphery with skin changes due to chronic steroids use. Physical exam on 03/29/2018 showed stable vital signs, S1-S2 regular rate and rhythm, trach site appears well-maintained, subcu emphysema is improving, distant breath sounds bilaterally, abdomen remains distended and tympanic, umbilical hernia, edema in the periphery, cushingoid type. KUB was reviewed after placement of NG tube which showed the tip of the NG tube is sub-phrenic. Physical exam on 03/30/2018 showed vital signs are stable, S1-S2 regular rate and rhythm, less secretions from the tracheostomy tube noted, subcu emphysema almost resolved, no stridor, rhonchi bilaterally, abdomen is slightly distended with umbilical hernia, tympanic, edema in the periphery. Her laboratory also showed no leukocytosis, no new organism, she does have MRSA in the sputum. Physical exam on 03/31/2018 showed vital signs are stable, S1-S2, A. fib, tracheostomy site is well maintained, remains with significant secretions and suctioned at the bedside, rhonchi bilaterally, abdomen is less distended, nontender, trace edema in the periphery. Glucose remains elevated. Physical exam on 04/01/2018 showed stable vital signs, remains in A. fib but rate controlled, trach site appeared clean, distant breath sounds bilaterally, abdomen is softer and benign nondistended with positive bowel sounds, trace edema in the periphery. Labs were reviewed, no new imaging. Physical exam on 04/02/2018 showed well-maintained tracheostomy site, cushingoid appearance, vital signs are stable, she is on minimal oxygen only for humidification, minimal secretions from the inner cannula, S1-S2 regular rate and rhythm, distant breath sounds, abdomen is soft, trace edema in the periphery. No new imaging and no new labs. Physical exam on 04/03/2018 showed elderly female, no apparent distress, overall lethargic, tracheostomy tube site appeared with some irritation, S1-S2 regular rate and rhythm, distant breath sounds bilaterally, abdomen is benign, no edema. Laboratory without any changes. Physical exam on 04/04/2018 showed elderly female, not in any apparent distress at the moment, secretions were noted and inner cannula was changed again, no stridor, distant breath sounds bilaterally, S1-S2 regular rate and rhythm, abdomen is soft and benign, trace edema in the periphery. Her labs also were reviewed which showed elevated BUN/creatinine. Assessment & Plan 1. Morbid obesity with BMI more than 30. 2. Obstructive sleep apnea with CO2 retention. 3. COPD with cor pulmonale. 4. Acute on chronic respiratory failure, currently with tracheostomy tube. 5. A. fib with RVR. 6. Aspiration pneumonitis. 7. Subcu emphysema, iatrogenic, resolving. 8. Mild CHF with bilateral pleural effusion. 9. chronic hypercapnic respiratory failure. 10. Diaphragm dysfunction status post diaphragm plication. 11. severe osteoarthritis with thoracolumbar spinal fixation. Plan: 1. Antibiotic per infectious disease. Adjust the dose of vancomycin as her level is 39 which is toxic. 2. Continue with prednisone 20 mg p.o. daily. 3. Advance oral intake as tolerated. Likely she will continue to be on soft diet. Her oral intake is inadequate which reflected in the elevation in her BUN /creatinine. 4. Continue DuoNeb. 5. Continue Reglan before meals and at bedtime. 6. Palliative care consult. 7. Patient is DNR. 8. Tracheostomy tube is planned to be changed by Dr. Velazquez on 04/06/2018. Preferably non-cuffed trach tube. The patient does not need to go on the ventilator overnight. She corrected her space just by using a trach mask. 9. New onset AK I, start the patient on IV fluids, check BMP in the morning. 10. No need to use the BiPAP via the ventilator and a trach tube, it is a demand mode when it is used through an ET tube or trach tube. No need for BiPAP via mask either. Keep the patient on trach mask on 10/04 basis. 11. Evaluation for acute renal failure, although I believe it is prerenal. Discussed with the staff at the bedside. Thank you, will follow. Data Medications: Current Inpatient Medications Medications (Trade) Dose Ordered Sig/Natasha Route Start Time Stop Time Status Last Admin Dose Admin Acetaminophen (Tylenol Tab) 650 mg Q4H PRN PO 03/15/18 18:30 04/14/18 18:29 Future hold 03/19/18 20:01 650 MG Al Hydrox/Mg Hydrox/Simethicone (Maalox Max Susp) 15 ml Q4H PRN PO 03/15/18 18:30 04/14/18 18:29 Magnesium Hydroxide (Milk Of Magnesia Susp) 30 ml Q12H PRN PO 03/15/18 18:30 04/14/18 18:29 Ondansetron HCl (Zofran Inj) 4 mg Q6H PRN IV 03/15/18 18:30 04/14/18 18:29 Albuterol Sulfate (Ventolin 0.083% 2.5MG/3ML Neb) 2.5 mg Q4H PRN INH 03/15/18 18:30 04/14/18 18:29 Albuterol/ Ipratropium (Duoneb) 3 ml Q6R NEB 03/15/18 21:00 04/14/18 20:59 04/04/18 14:09 3 ML Citalopram Hydrobromide (celeXA TAB) 30 mg DAILY PO 03/16/18 09:00 04/15/18 08:59 Future hold 04/04/18 08:00 30 MG Diclofenac Sodium (Voltaren 1% Top Gel) 1 appln QID PRN EXT 03/15/18 19:30 04/14/18 19:29 03/18/18 08:30 1 APPLN Gabapentin (Neurontin Cap) 300 mg BID PO 03/15/18 21:00 04/14/18 20:59 Future hold 04/04/18 08:01 300 MG Levothyroxine Sodium (Synthroid Tab) 100 mcg DAILYBB PO 03/16/18 06:00 04/15/18 06:59 Future hold 04/04/18 05:29 100 MCG Nystatin (Mycostatin Powder) 1 appln TID EXT 03/15/18 21:00 04/14/18 20:59 04/04/18 12:27 1 APPLN Ropinirole HCl (Requip Tab) 0.5 mg HS PO 03/15/18 21:00 04/14/18 20:59 Future hold 04/03/18 21:01 0.5 MG Sucralfate (Carafate Susp) 1 gm QID PO 03/15/18 21:00 04/14/18 20:59 Future hold 04/04/18 12:27 1 GM Pantoprazole Sodium (Protonix Tab) 40 mg QAM PO 03/16/18 09:00 04/15/18 08:59 Future hold 04/04/18 08:01 40 MG Miscellaneous Information (Order Awaiting Action) 1 ea QS N/A 03/16/18 00:00 04/15/18 00:00 03/18/18 18:49 1 EA Glucose (Glucose 40% Gel) 15-30 GRAMS 15 GRAMS... UD PRN PO 03/15/18 19:00 04/14/18 18:59 Glucose (Glucose Chew Tab) 4-8 Tablets 4 Tabl... UD PRN PO 03/15/18 19:00 04/14/18 18:59 Dextrose (Dextrose 50% 50ML Syringe) 25-50ML 25ML FOR ... UD PRN IV 03/15/18 19:00 04/14/18 18:59 Glucagon (Glucagon Inj) 1 mg UD PRN SQ 03/15/18 19:00 04/14/18 18:59 Carbohydrates (Carbohydrates For Hypoglycemia) 15-30 GRAMS 15 grams if BSG 54-69... UD PRN PO 03/15/18 19:00 04/14/18 18:59 Heparin Sodium (Porcine) (Heparin 10 Unit/ ml 5 ml Flush) 5 ml PRN PRN FLUSH 03/20/18 00:30 04/19/18 00:29 04/03/18 19:48 5 ML Amiodarone HCl (Cordarone Tab) 200 mg DAILY PO 03/29/18 09:00 04/28/18 08:59 04/04/18 08:00 200 MG Non-Formulary Medication (Non-Formulary Patient'S Own Med) 1 ea DAILY PO 03/22/18 09:00 04/21/18 08:59 04/04/18 08:05 1 EA Hydromorphone HCl (Dilaudid Inj) 0.25 mg Q1H PRN IV 03/23/18 11:30 04/06/18 11:29 04/02/18 08:15 0.25 MG Vancomycin HCl (Consult) 1 ea UD PRN N/A 03/24/18 11:00 04/23/18 10:59 Senna (Senokot Tab) 17.2 mg HS PO 03/24/18 21:00 04/23/18 20:59 Future hold 04/03/18 21:03 17.2 MG Acetaminophen 100 ml @ 400 mls/hr Q8H PRN IV 03/25/18 15:45 04/24/18 15:44 04/02/18 08:16 400 MLS/HR Lorazepam (Ativan Inj) 0.5 mg Q6H PRN IV 03/27/18 18:15 04/26/18 18:14 03/31/18 03:54 0.5 MG Lorazepam 0.5 mg/ Syringe 1 ml @ 1 mls/min Q6H PRN IV 03/27/18 18:45 04/26/18 18:44 Metoclopramide HCl (Reglan Inj) 5 mg Q6H IV. 03/30/18 12:00 04/29/18 11:59 04/04/18 12:27 5 MG Enteral Nutritional Formula (Peptamen 1.5) 1,000 ml UD NG 03/30/18 13:00 04/29/18 12:59 Insulin Aspart (novoLOG ASPART) SLIDING SCALE If C... ACHS SC 04/01/18 07:00 05/01/18 06:59 04/03/18 17:19 4 UNITS Prednisone (PredniSONE TAB) 20 mg QAM PO 04/02/18 09:00 05/01/18 08:59 04/04/18 08:01 20 MG Enteral Nutritional Formula (Boost Pudding) 1 cup BIDM PO 04/02/18 16:45 05/02/18 16:44 04/04/18 07:59 1 CUP Apixaban (Eliquis Tab) 2.5 mg BID PO 04/04/18 21:00 05/04/18 20:59 Lactated Ringer's 1,000 ml @ 100 mls/hr Q10H IV 04/04/18 13:45 05/04/18 13:44 04/04/18 13:57 100 MLS/HR I & O: 24-Hour Column 04/05/18 08:00 Intake Total 39 ml Balance 39 ml Vital Signs: Date Time Temp Pulse Resp B/P (MAP) Pulse Ox O2 Delivery O2 Flow Rate FiO2 04/04/18 14:09 84 20 95 Trach Collar 28 04/04/18 11:23 36.8 83 16 121/69 (86) 95 04/04/18 08:00 97 T-piece Trach Collar 04/04/18 07:30 71 20 96 BiPAP/CPAP 28 04/04/18 07:06 36.7 74 17 113/60 (77) 96 BiPAP 28 Trach Collar 04/04/18 03:38 37.2 76 20 121/67 (85) 96 BiPAP 28 Trach Collar 04/04/18 02:18 91 98 28 04/04/18 02:17 91 25 98 BiPAP/CPAP 28.0 04/03/18 23:30 37.2 78 20 128/75 (92) 96 BiPAP 28 Trach Collar 04/03/18 22:28 91 98 28 04/03/18 20:43 36.7 90 18 133/81 (98) 97 T-piece 8.0 28 Trach Collar 04/03/18 20:00 98 Trach Collar 28.0 04/03/18 19:49 93 20 98 Trach Collar 28.0 04/03/18 16:30 36.7 91 20 122/70 (87) 97 T-piece 6.0 28 Trach Collar Laboratory Results: Last 24 Hours Test 04/03/18 16:32 04/03/18 20:45 04/04/18 07:44 04/04/18 08:25 Bedside Glucose 195 mg/dl 190 mg/dl 112 mg/dl White Blood Count 5.53 K/uL Red Blood Count 3.53 M/uL Hemoglobin 10.7 g/dL Hematocrit 33.8 % Mean Corpuscular Volume 95.8 fL Mean Corpuscular Hemoglobin 30.3 pg Mean Corpuscular Hemoglobin Concent 31.7 g/dl Platelet Count 159 K/uL Mean Platelet Volume 10.6 fL Neutrophils (%) (Auto) 70.6 % Lymphocytes (%) (Auto) 17.0 % Monocytes (%) (Auto) 10.3 % Eosinophils (%) (Auto) 0.5 % Basophils (%) (Auto) 0.2 % Neutrophils # (Auto) 3.90 K/uL Lymphocytes # (Auto) 0.94 K/uL Monocytes # (Auto) 0.57 K/uL Eosinophils # (Auto) 0.03 K/uL Basophils # (Auto) 0.01 K/uL RDW Standard Deviation 59.3 fL RDW Coefficient of Variation 16.9 % Immature Granulocyte % (Auto) 1.4 % Immature Granulocyte # (Auto) 0.08 K/uL Nucleated RBC Absolute Count (auto) 0.03 K/uL Nucleated Red Blood Cells % 0.5 % Sodium Level 144 mmol/L Potassium Level 3.1 mmol/L Chloride Level 110 mmol/L Carbon Dioxide Level 26 mmol/L Anion Gap 7.0 mmol/L Blood Urea Nitrogen 19 mg/dl Creatinine 3.02 mg/dl Est Creatinine Clear Calc Drug Dose 14.7 ml/min Estimated GFR () 16.1 Estimated GFR (Non- 13.9 BUN/Creatinine Ratio 6.1 Random Glucose 114 mg/dl Lactic Acid Level 1.3 mmol/L Calcium Level 8.1 mg/dl Phosphorus Level 3.5 mg/dl Magnesium Level 2.1 mg/dl Total Bilirubin 0.8 mg/dl Aspartate Amino Transf (AST/SGOT) 19 U/L Alanine Aminotransferase (ALT/SGPT) 33 U/L Alkaline Phosphatase 92 U/L Total Protein 5.7 gm/dl Albumin 2.6 gm/dl Globulin 3.1 gm/dl Albumin/Globulin Ratio 0.8 Test 04/04/18 11:15 04/04/18 12:05 Bedside Glucose 140 mg/dl Vancomycin Level Trough 39.0 mcg/ml
[2018-04-04] MEDS: SENNA 8.6 MG TAB PO SCH (21:00)
[2018-04-04] MEDS: ROPINIROLE HCL 0.25 MG TAB PO SCH (21:15)
--- NOTE | 2018-04-04 22:38 | Progress Note ---
Subjective Date of Service: Apr 04, 2018. Subjective Pt evaluation today including: conversation w/ patient, physical exam Patient is lethargic. Patient does not provide significant medical history. Patient had smalol bowel movement. Problem List Medical Problems: (1) Cervical strain Status: Acute (2) Contusion of multiple sites Status: Acute (3) COPD exacerbation Status: Acute (4) Fall Status: Acute (5) Fall from chair, initial encounter Status: Acute (6) Fatigue Status: Acute (7) Head injury Status: Acute (8) Head injury Status: Acute (9) Hip pain Status: Acute (10) Hypocalcemia Status: Acute (11) Hypoxia Status: Acute (12) Hypoxia Status: Acute (13) Lower extremity edema Status: Acute (14) PNA (pneumonia) Status: Acute (15) Pneumonia Status: Acute (16) Pneumonitis Status: Acute (17) Reactive airway disease Status: Acute (18) Right flank pain Status: Acute (19) Sepsis Status: Acute (20) Sepsis Status: Acute (21) Syncope Status: Acute (22) Traumatic compression fracture of third thoracic vertebra Status: Acute (23) Vaginal yeast infection Status: Acute (24) Weakness Status: Acute (25) Yeast vaginitis Status: Acute Review of Systems unable to obtain ROS. Objective Vital Signs Date Time Temp Pulse Resp B/P (MAP) Pulse Ox O2 Delivery O2 Flow Rate FiO2 04/04/18 20:00 97 Trach Collar 6.0 28 04/04/18 19:10 36.6 81 20 97 28.0 04/04/18 19:07 81 20 97 Trach Collar 28 04/04/18 15:05 36.6 84 16 139/75 (96) 97 Trach Collar 04/04/18 14:09 84 20 95 Trach Collar 28 04/04/18 11:23 36.8 83 16 121/69 (86) 95 04/04/18 08:00 97 T-piece Trach Collar 04/04/18 07:30 71 20 96 BiPAP/CPAP 28 04/04/18 07:06 36.7 74 17 113/60 (77) 96 BiPAP 28 Trach Collar 04/04/18 03:38 37.2 76 20 121/67 (85) 96 BiPAP 28 Trach Collar 04/04/18 02:18 91 98 28 04/04/18 02:17 91 25 98 BiPAP/CPAP 28.0 04/03/18 23:30 37.2 78 20 128/75 (92) 96 BiPAP 28 Trach Collar Physical Exam Comments: General Appearance: no apparent distress, + obese, + pertinent finding ( cushingnoid facies) ENT: pharynx normal (no thrush, MMM) Neck: no JVD, + pertinent finding (trach in place; copious, thick, delgado-yellow secretions present in trach opening, site appears more irritated) Respiratory/Chest: + decreased breath sounds (bases), + pertinent finding ( very course BS b/l ) Cardiovascular: regular rate, rhythm, no gallop Abdomen: no organomegaly, + distended (no change from yesterday's exam), + tenderness Extremities: no pedal edema Neurologic/Psychiatric: alert, oriented x 3, calm today. Skin: + pertinent finding (PICC line, RUE - clean ; ecchymoses on legs, arms ) Laboratory Results Last 24 Hours Test 04/04/18 07:44 04/04/18 08:25 04/04/18 11:15 04/04/18 12:05 Bedside Glucose 112 mg/dl 140 mg/dl White Blood Count 5.53 K/uL Red Blood Count 3.53 M/uL Hemoglobin 10.7 g/dL Hematocrit 33.8 % Mean Corpuscular Volume 95.8 fL Mean Corpuscular Hemoglobin 30.3 pg Mean Corpuscular Hemoglobin Concent 31.7 g/dl Platelet Count 159 K/uL Mean Platelet Volume 10.6 fL Neutrophils (%) (Auto) 70.6 % Lymphocytes (%) (Auto) 17.0 % Monocytes (%) (Auto) 10.3 % Eosinophils (%) (Auto) 0.5 % Basophils (%) (Auto) 0.2 % Neutrophils # (Auto) 3.90 K/uL Lymphocytes # (Auto) 0.94 K/uL Monocytes # (Auto) 0.57 K/uL Eosinophils # (Auto) 0.03 K/uL Basophils # (Auto) 0.01 K/uL RDW Standard Deviation 59.3 fL RDW Coefficient of Variation 16.9 % Immature Granulocyte % (Auto) 1.4 % Immature Granulocyte # (Auto) 0.08 K/uL Nucleated RBC Absolute Count (auto) 0.03 K/uL Nucleated Red Blood Cells % 0.5 % Sodium Level 144 mmol/L Potassium Level 3.1 mmol/L Chloride Level 110 mmol/L Carbon Dioxide Level 26 mmol/L Anion Gap 7.0 mmol/L Blood Urea Nitrogen 19 mg/dl Creatinine 3.02 mg/dl Est Creatinine Clear Calc Drug Dose 14.7 ml/min Estimated GFR () 16.1 Estimated GFR (Non- 13.9 BUN/Creatinine Ratio 6.1 Random Glucose 114 mg/dl Lactic Acid Level 1.3 mmol/L Calcium Level 8.1 mg/dl Phosphorus Level 3.5 mg/dl Magnesium Level 2.1 mg/dl Total Bilirubin 0.8 mg/dl Aspartate Amino Transf (AST/SGOT) 19 U/L Alanine Aminotransferase (ALT/SGPT) 33 U/L Alkaline Phosphatase 92 U/L Total Protein 5.7 gm/dl Albumin 2.6 gm/dl Globulin 3.1 gm/dl Albumin/Globulin Ratio 0.8 Vancomycin Level Trough 39.0 mcg/ml Test 04/04/18 16:25 04/04/18 20:13 Bedside Glucose 142 mg/dl 138 mg/dl Assessment and Plan 83yo female: 1. b/l pneumonia - 2nd to MRSA - day #12 of therapy. Continue vanco for MRSA. Plan 10-14 days of Rx. Could always change to zyvox in marva of vanco. Level is currently toxic at 39. Patient had no fevers today, nor overnight Patient has a trach due likely to her weight, large neck and cushinoid features causing an obstruction. Patient currently on high flow oxygen. Will obtain ENT consult to downsize trach scheduled for Monday to downsize trach and place uncuff.. 2. new-onset a. fib - converted to NSR earlier this stay with amiodarone. Resumed amiodarone by mouth along w/ eliquis. 3. ileus - ongoing. Patient pulled out her NG tube 2 nights ago. Fortunately she has not had nausea/emesis. With that said she has had no bowel movement. Will CONTINUE reglan IV q6h. Allow diet as desired/tolerated. Despite lack of BM, patient is not worse. May consider lactulose. 4. acute/chronic hypoxic respiratory failure - s/p trach placement. Acute component 2nd to #1. 5. dysphagia - patient refusing permanent feeding tube. She pulled out her NG tube 2 nights ago as well. Speech re-evaluated her 7/13/18 w/ bedside swallow and patient placed back on thickened liquids. Tolerating such thus far. Allow [facility] soft diabetic diet as desired/tolerated. Patient today tolerated soft diet. 6. protein calorie malnutrition, moderate-severe degree - again she is refusing permanent feeding tube. Ongoing issue. Doubt it will improve. 7. COPD with mild exacerbation - wean to prednisone 20mg daily in the AM.. 8. H/O DVTs - noted; resumed eliquis. 9. Acute on CKD stage 3 - creatinine has increased to above 3. Vanco levels are toxic. Patient also has not made sufficent urine. Will monitor, restart IV fluids.. 10. Hypothyroidism - compensated; cont synthroid. 11. T2DM - controlled. 12. chronic diastolic CHF - compensated. In fact she has lost weight in the hospital. 13. right-sided elevated Hemidiaphragm - S/P Plication in the past. 14. depression - resumed SSRI. Consider titration and/or addition of additional medication. 15. HTN - controlled 16. FEN -restart IVF. Diet if desired. 17. DVT proph - eliquis. 18. RLS - requip. spent 35 minutes in management of case. Continued [facility] stay due to: fever, inadequate po fluid intake, inadequate oral pain control, voiding difficulties, ambulation difficulties, multiple IV medications needed, other (ileus, pneumonia, etc) Discharge planning: uncertain
[2018-04-05] VITALS (10 sets, daily range): BP systolic 112–137; BP diastolic 56–88; PULSE 64–90; TEMP 36.8–37.2; O2SAT 95–98
[2018-04-05] MEDS: METOCLOPRAMIDE HCL INJ 5 MG/ML 2 ML VIAL IV. SCH ×4 (00:01→18:00)
[2018-04-05] MEDS: ALBUT/IPRATROP 3MG/0.5MG NEB 3 ML VIAL NEB SCH ×4 (02:04→19:11)
[2018-04-05] MEDS: LEVOTHYROXINE 100 MCG TAB PO SCH (05:44)
[2018-04-05 06:32] LABS: CREATININE 4.36 mg/dl (0.60-1.20)
[2018-04-05] MEDS: PANTOprazole SOD 40 MG TAB PO SCH (08:33)
[2018-04-05] MEDS: GABAPENTIN 300 MG CAP PO SCH ×2 (08:34→19:53)
[2018-04-05] MEDS: APIXABAN 2.5 MG TAB PO SCH ×2 (08:34→19:53)
[2018-04-05] MEDS: AMIODARONE 200 MG TAB PO SCH (08:35)
[2018-04-05] MEDS: CITALOPRAM 20 MG TAB PO SCH (08:35)
[2018-04-05] MEDS: NYSTATIN POWDER 15GM BTL EXT SCH ×3 (08:35→19:53)
[2018-04-05] MEDS: SUCRALFATE 1 GM/10 ML UDC PO SCH ×4 (08:36→19:52)
[2018-04-05] MEDS: BOOST VANILLA PUDDING CUP PO SCH (08:36)
[2018-04-05] MEDS: INSULIN ASPART 100 UNITS/ML 3 ML PEN SC SCH ×4 (08:56→20:10)
[2018-04-05] MEDS: LACTATED RINGER'S 1000ML 1,000 ML IV SCH ×2 (08:59→19:15)
--- NOTE | 2018-04-05 09:10 | Pharmacy Progress Note ---
Pharmacy Antibiotic Prog Note Date of Service Apr 05, 2018. Subjective The patient is currently on vancomycin; however on hold at this time due to supratherapeutic levels The patient is currently on day # 13/14 of IV therapy. Objective Height (Feet): 5 Height (Inches): 2.00 Weight (Kilograms): 88.800 Levels: Item Value Date Time Random Vancomycin Level 36.3 mcg/ml 04/05/18 0533 Vancomycin Level Trough 39.0 mcg/ml 04/04/18 1205 Lab Results (24hrs): Test 04/04/18 12:05 04/04/18 20:13 04/05/18 05:33 04/05/18 07:45 Vancomycin Level Trough 39.0 mcg/ml (SEE COMMENT) Bedside Glucose 138 mg/dl (70-90) 97 mg/dl (70-90) Creatinine 4.36 mg/dl (0.60-1.20) Est Creatinine Clear Calc Drug Dose 10.2 ml/min Estimated GFR () 10.3 Estimated GFR (Non- 8.9 Random Vancomycin Level 36.3 mcg/ml Assessment & Plan 83 year old female receiving vancomycin for treatment of MRSA PNA. Vancomycin * Random level this am still supratherapeutic at ~36 mcg/ml, has decreased only slightly from yesterdays trough level of 39 mcg/ml * Last vancomycin dose was 04/03 @1800 - Scr continues to rise more today from 3 to 4.36 mg/dL (CrCl ~10 ml/min) * Will continue to hold further doses - duration of therapy 14 days likely, expect patient to be therapeutic until end of therapy course - no need to order any more doses at this time * Estimated t1/2>48 hrs, ke~0.0039 hr-1, CrCl ~10 ml/min Pharmacy will continue to follow and will adjust dose/frequency as necessary. Thank you. Pharmacy will continue to follow and will adjust dose/frequency as necessary. Thank you
--- NOTE | 2018-04-05 13:56 | PULMONARY PROGRESS NOTE ---
DATE: 04/05/2018 TIME: 1:15 p.m. SUBJECTIVE: The patient was sleeping when I came into her room. She did awaken readily. Her daughter was with her during this evaluation. I also spoke with her registered nurse. The patient has had no major problems today. She has been comfortable throughout the day. The patient indicates to me that she is short of breath, though she does not look short of breath. She does bring secretions out through her trach. Her daughter feels the mucus is coming out much easier than it did before she had the tracheostomy. The patient is tentatively scheduled for a trach change tomorrow. The patient indicates she is coughing a moderate amount. I asked her if she thought that her breathing was better since she has the trach and she seemed to indicate that she thought so. OBJECTIVE: GENERAL: The patient appears profoundly weak. She did not appear in distress at rest. VITAL SIGNS: Temperature is 37.2. There have been no fever spikes for the past 3 days. Her highest fever 3 days ago was 37.9. In the past 24 hours, the highest temperature is 37.2. HEENT: Pupils were reactive. Her mouth appeared dry. The trach is in place. One can palpate some crepitance from subcutaneous emphysema on the left upper anterior chest. This has been reported other times in her chart. It is definitely small quantity. Blood pressure is 112/59. HEART: Rate is 72 per minute. The rhythm sounded regular, although she does have a history of atrial fibrillation. LUNGS: Auscultation of the lung madden revealed rhonchi bilaterally, heard anteriorly. Her respiratory rate is 20. Saturation is 95% on 6-liter trach collar. This reportedly was 28%. ABDOMEN: Obese. Bowel sounds were present. EXTREMITIES: The patient is edematous bilaterally. She has much more ecchymosis than I would expect on her upper legs. LABORATORY DATA: Blood sugar this morning was 140. Creatinine today was 4.36. Prior creatinine was 3.02. That was just 1 day earlier. IMPRESSIONS: 1. Acute on chronic respiratory failure with hypoxia and hypercarbia. 2. Chronic obstructive pulmonary disease. 3. Cor pulmonale. 4. Obesity hypoventilation syndrome. 5. Obstructive sleep apnea. 6. Status post trach. 7. Dysphagia. 8. Renal failure. COMMENTS AND RECOMMENDATIONS: The biggest concern at present is the rapid worsening of the renal function. The creatinine today is 4.36, and back on the , the creatinine was 0.73. This needs to be addressed. She is on vancomycin which may contribute to renal failure. Perhaps this should be reviewed as well as a review of all of her medicines. It is not clear exactly how long she has been on the vancomycin, but perhaps it could be stopped. We will defer this to the hospitalist team. She will need followup BUN and creatinine. She is tentatively scheduled for a trach tube changed tomorrow. Dr. Khalil has suggested a trach without a cuff. The patient's status is very marginal. She is extremely weak and debilitated. I would not taper her prednisone lower than the 20 mg she has been at. I believe she has been on higher dose on long-term. She has had a lot of stresses in the past few weeks. Thus, her need for steroids may actually be somewhat higher. An assessment of her intake over the past several days would suggest that her intake has been very poor. Perhaps that is accounting for the increase in creatinine. A spot urinary sodium may be helpful to determine if she actually needs fluids or not. Case discussed with Dr. Nelson. [facility], [place]
[2018-04-05 15:04] LABS: CALCIUM 7.7 mg/dl (8.5-10.1); CREATININE 4.82 mg/dl (0.60-1.20); POTASSIUM 3.6 mmol/L (3.5-5.1)
--- NOTE | 2018-04-05 16:39 | Nephrology Consultation ---
Nephrology Consultation Date & Providers Date of Consultation: Apr 05, 2018. Primary Care Provider: Michael De Souza M.D. Referring Provider: Reason for Consultation MANJULA History of Present Illness Karen Philip is an 83 year-old female with a complicated medical history including chronic respiratory failure, COPD, obesity, elevated right hemidiaphragm, diastolic CHF, CKD stage II/III and chronic debility. She presented to [facility] at the end of February with right sided chest pain. Hospital course has been complicated by bilateral pneumonia, tracheostomy placement, atrial fibrillation with RVR, aspiration pneumonitis, mild CHF with bilateral pleural effusion, ileus vs. SBO, as well as overall deconditioning/decline. Nephrology consultation was requested to assist in the management of MANJULA. Creatinine on March 02 was 0.7 mg/dL. On repeat metabolic profile obtained Mar 05, creatinine was found to be 3.0 mg/dL. Despite IV fluid replacement creatinine continues to rise. Karen was unable to provide medical history or assist with complete ROS. I spoke with the patient's daughter (Delores) as well as medical providers. Medical record was reviewed in detail. Karen is incontinent of urine throughout the day. No notable change in urine output has been appreciated. She continues to tolerate a predominately liquid diet. There have been no recent fevers or signs of infection. Hemodynamically the patient has been stable for the past several days. Mahoney catheter was removed on March 02. Past Medical/Surgical History Medical: 1. Chronic Respiratory Failure with combined restrictive and obstructive lung disease, hypoventilation and YULY; chronic oxygen dependence 2. Elevated R Hemidiaphragm s/p fundoplication 3. H/O DVTs/PE 4. Hypothyroidism 5. T2DM 6. CKD Stage II/III (baseline creatinine <1 mg/dL) 7. Diastolic CHF 8. GERD 9. S/P Appendectomy 10. 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 Sclerotic aortic valve 13. Chronic lymphedema 14. Paroxysmal atrial fibrillation 15. History of C diff colitis 16. Recurrent pneumonia 17. Recurrent UTI Surgical: Fundoplication, tracheostomy Allergies Coded Allergies: Adhesives (Verified Allergy, Severe, TAPE-REDNESS, BLISTERS, 03/19/18) Pneumococcal Vaccine (Verified Allergy, Severe, SHORTNESS OF BREATH, ) Metronidazole (Verified Allergy, Intermediate, skin rash, 03/19/18) allergic to generic form Phenazopyridine (Verified Allergy, Intermediate, abdominal pain/rash, ) Erythromycin (Verified Allergy, Mild, RASH, 03/19/18) Salicylates (Verified Allergy, Unknown, pt states rash with ASA 325 but not ASA 81mg, 03/19/18) Sulfa Antibiotics (Verified Allergy, Unknown, ON MED LIST, 03/19/18) Tetracycline (Verified Allergy, Unknown, RASH, 03/19/18) Morphine (Verified Adverse Reaction, Intermediate, urinary retention - oral morphine only, 03/19/18) Diltiazem (Verified Adverse Reaction, Mild, FLUID RETENTION, 03/19/18) Metoclopramide (Verified Adverse Reaction, Mild, TREMORS, 03/19/18) Bacitracin (Verified Adverse Reaction, Unknown, "MAKES IT WORSE"-OK IF NOT OTC MEDICATION, 03/19/18) OKAY IF NOT OVER THE COUNTER MEDICATION Inpatient Medications Current Inpatient Medications Medications (Trade) Dose Ordered Sig/Natasha Route Start Time Stop Time Status Last Admin Dose Admin Acetaminophen (Tylenol Tab) 650 mg Q4H PRN PO 03/15/18 18:30 04/14/18 18:29 Future hold 03/19/18 20:01 650 MG Al Hydrox/Mg Hydrox/Simethicone (Maalox Max Susp) 15 ml Q4H PRN PO 03/15/18 18:30 04/14/18 18:29 Magnesium Hydroxide (Milk Of Magnesia Susp) 30 ml Q12H PRN PO 03/15/18 18:30 04/14/18 18:29 Ondansetron HCl (Zofran Inj) 4 mg Q6H PRN IV 03/15/18 18:30 04/14/18 18:29 Albuterol Sulfate (Ventolin 0.083% 2.5MG/3ML Neb) 2.5 mg Q4H PRN INH 03/15/18 18:30 04/14/18 18:29 Albuterol/ Ipratropium (Duoneb) 3 ml Q6R NEB 03/15/18 21:00 04/14/18 20:59 04/05/18 14:06 3 ML Citalopram Hydrobromide (celeXA TAB) 30 mg DAILY PO 03/16/18 09:00 04/15/18 08:59 Future hold 04/05/18 08:35 30 MG Diclofenac Sodium (Voltaren 1% Top Gel) 1 appln QID PRN EXT 03/15/18 19:30 04/14/18 19:29 03/18/18 08:30 1 APPLN Gabapentin (Neurontin Cap) 300 mg BID PO 03/15/18 21:00 04/14/18 20:59 Future hold 04/05/18 08:34 300 MG Levothyroxine Sodium (Synthroid Tab) 100 mcg DAILYBB PO 03/16/18 06:00 04/15/18 06:59 Future hold 04/05/18 05:44 100 MCG Nystatin (Mycostatin Powder) 1 appln TID EXT 03/15/18 21:00 04/14/18 20:59 04/05/18 13:10 1 APPLN Ropinirole HCl (Requip Tab) 0.5 mg HS PO 03/15/18 21:00 04/14/18 20:59 Future hold 04/04/18 21:15 0.5 MG Sucralfate (Carafate Susp) 1 gm QID PO 03/15/18 21:00 04/14/18 20:59 Future hold 04/05/18 13:07 1 GM Pantoprazole Sodium (Protonix Tab) 40 mg QAM PO 03/16/18 09:00 04/15/18 08:59 Future hold 04/05/18 08:33 40 MG Miscellaneous Information (Order Awaiting Action) 1 ea QS N/A 03/16/18 00:00 04/15/18 00:00 03/18/18 18:49 1 EA Glucose (Glucose 40% Gel) 15-30 GRAMS 15 GRAMS... UD PRN PO 03/15/18 19:00 04/14/18 18:59 Glucose (Glucose Chew Tab) 4-8 Tablets 4 Tabl... UD PRN PO 03/15/18 19:00 04/14/18 18:59 Dextrose (Dextrose 50% 50ML Syringe) 25-50ML 25ML FOR ... UD PRN IV 03/15/18 19:00 04/14/18 18:59 Glucagon (Glucagon Inj) 1 mg UD PRN SQ 03/15/18 19:00 04/14/18 18:59 Carbohydrates (Carbohydrates For Hypoglycemia) 15-30 GRAMS 15 grams if BSG 54-69... UD PRN PO 03/15/18 19:00 04/14/18 18:59 Heparin Sodium (Porcine) (Heparin 10 Unit/ ml 5 ml Flush) 5 ml PRN PRN FLUSH 03/20/18 00:30 04/19/18 00:29 04/03/18 19:48 5 ML Amiodarone HCl (Cordarone Tab) 200 mg DAILY PO 03/29/18 09:00 04/28/18 08:59 04/05/18 08:35 200 MG Non-Formulary Medication (Non-Formulary Patient'S Own Med) 1 ea DAILY PO 03/22/18 09:00 04/21/18 08:59 04/04/18 08:05 1 EA Hydromorphone HCl (Dilaudid Inj) 0.25 mg Q1H PRN IV 03/23/18 11:30 04/06/18 11:29 04/02/18 08:15 0.25 MG Vancomycin HCl (Consult) 1 ea UD PRN N/A 03/24/18 11:00 04/06/18 23:59 Senna (Senokot Tab) 17.2 mg HS PO 03/24/18 21:00 04/23/18 20:59 Future hold 04/03/18 21:03 17.2 MG Acetaminophen 100 ml @ 400 mls/hr Q8H PRN IV 03/25/18 15:45 04/24/18 15:44 04/02/18 08:16 400 MLS/HR Lorazepam (Ativan Inj) 0.5 mg Q6H PRN IV 03/27/18 18:15 04/26/18 18:14 03/31/18 03:54 0.5 MG Lorazepam 0.5 mg/ Syringe 1 ml @ 1 mls/min Q6H PRN IV 03/27/18 18:45 04/26/18 18:44 Metoclopramide HCl (Reglan Inj) 5 mg Q6H IV. 03/30/18 12:00 04/29/18 11:59 04/05/18 13:07 5 MG Insulin Aspart (novoLOG ASPART) SLIDING SCALE If C... ACHS SC 04/01/18 07:00 05/01/18 06:59 04/03/18 17:19 4 UNITS Prednisone (PredniSONE TAB) 20 mg QAM PO 04/02/18 09:00 05/01/18 08:59 04/05/18 08:34 20 MG Apixaban (Eliquis Tab) 2.5 mg BID PO 04/04/18 20:00 05/04/18 20:59 04/05/18 08:34 2.5 MG Lactated Ringer's 1,000 ml @ 100 mls/hr Q10H IV 04/04/18 13:45 05/04/18 13:44 04/05/18 08:59 100 MLS/HR Enteral Nutritional Formula (Boost Plus Vanilla) 0.5 can QID PO 04/05/18 17:00 05/05/18 16:59 Family History Diabetes mellitus FH: cancer FH: gallbladder disease FH: heart disease FH: lung disease Hypertension Kidney disease or stones Social History Drug Use: none Marital Status: Housing Status: lives with family Occupation: retired Review of Systems A complete review of systems was not able to be completed due to compromised mental status and difficulty communicating with tracheostomy. Physical Exam Date Time Temp Pulse Resp B/P (MAP) Pulse Ox O2 Delivery O2 Flow Rate FiO2 04/05/18 15:09 36.8 85 20 122/72 (89) 96 Trach Collar 04/05/18 14:07 88 20 96 Trach Collar 28 04/05/18 08:34 37.2 72 20 112/59 (76) 95 Trach Collar 6.0 04/05/18 08:30 96 Trach Collar 6.0 04/05/18 07:11 90 22 96 Trach Collar 28 04/05/18 02:07 80 20 95 Trach Collar 28 04/05/18 00:00 Trach Collar 6.0 28 04/04/18 23:51 36.8 80 20 118/68 (85) 95 Trach Collar 6.0 04/04/18 20:00 97 Trach Collar 6.0 28 04/04/18 19:10 36.6 81 20 97 28.0 04/04/18 19:07 81 20 97 Trach Collar 28 General Appearance: no apparent distress, + obese, + pertinent finding (elderly , frail appearing) Head: normocephalic, atraumatic Eyes: sclerae normal Neck: supple, no JVD, + pertinent finding (tracheostomy) Respiratory/Chest: no respiratory distress, no accessory muscle use, + rhonchi Cardiovascular: regular rate, rhythm, no gallop, + systolic murmur Abdomen/GI: non tender, soft Extremities/Musculoskelatal: normal inspection, + pedal edema, + pertinent finding (dependent edema) Neurologic/Psych: + depressed affect, + disoriented Laboratory Results Last 24 Hours Test 04/04/18 16:25 04/04/18 20:13 04/05/18 05:33 04/05/18 07:45 Bedside Glucose 142 mg/dl 138 mg/dl 97 mg/dl Creatinine 4.36 mg/dl Est Creatinine Clear Calc Drug Dose 10.2 ml/min Estimated GFR () 10.3 Estimated GFR (Non- 8.9 Random Vancomycin Level 36.3 mcg/ml Test 04/05/18 11:45 04/05/18 13:53 Bedside Glucose 140 mg/dl Sodium Level 142 mmol/L Potassium Level 3.6 mmol/L Chloride Level 109 mmol/L Carbon Dioxide Level 24 mmol/L Anion Gap 9.0 mmol/L Blood Urea Nitrogen 22 mg/dl Creatinine 4.82 mg/dl Est Creatinine Clear Calc Drug Dose 9.5 ml/min Estimated GFR () 9.1 Estimated GFR (Non- 7.9 BUN/Creatinine Ratio 4.6 Random Glucose 168 mg/dl Calcium Level 7.7 mg/dl Impression (1) MANJULA (acute kidney injury) Karen Philip is a chronically ill and frail 83-year-old female with multiple comorbid medical conditions. 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 Karen is now being managed with tracheostomy and a chronic oxygen requirement. The patient has documented chronic diastolic CHF, cor pulmonale, paroxysmal atrial fibrillation. She has had recurrent pneumonia and recent pneumonitis. Hospital course has been long -- associated with progressive debility. At this time, the patient is not communicating well and functional status is significantly limited. Overall, prognosis is guarded. MANJULA is severe. The patient is making urine by report but urine volume is not quantified due to incontinence. Metabolic profile is otherwise acceptable at this time but creatinine is rising rapidly. Volume status appears acceptable and patient is tolerating IVF. Fortunately, there is no current need for dialysis. Unfortunately, if there is no improvement in kidney function, given the degree of frailty and multiple medical comorbidities, I would not expect dialysis to provide significant clinical benefit. Creatinine did start to rise following the removal of the Mahoney catheter on April 01. A renal US has been requested. I have also asked for a new catheter to be placed to monitor accurate I/O's and obtain urine studies. UA/microscopy and random urine sodium to be collected once catheter is in place. LR @ 100 ml/hr will be continued for now to encourage a slightly positive fluid balance. I/O's will be monitored. Metabolic profile will be rechecked tomorrow AM. Contributing medications certainly may include vancomycin. Elevated vancomycin levels noted. The medication has been held. In addition to obstructive nephropathy, or ATN/vancomycin nephrotoxicity additional potential causes of MANJULA to consider would be ATN or AIN. Renovascular disease less likely or a warfarin nephropathy (associated with Eliquis). CT of the abdomen on Mar 21 documented normal appearing kidneys without evidence of obstruction.
[2018-04-05] MEDS: BOOST PLUS VANILLA OR BOOST GLUCOSE CONTROL STRAWBERRY PO SCH ×2 (17:00→19:59)
--- NOTE | 2018-04-05 17:33 | DIAGNOSTIC IMAGING REPORT ---
(DARRIUS/BLAD)RETROPERITON COMP HISTORY: 83 years-old Female MANJULA acute kidney injury COMPARISON: CT abdomen and pelvis 03/21/2018 TECHNIQUE: Multiple real-time sonographic images of the kidneys and urinary bladder were obtained assessing grayscale appearance and color Doppler flow FINDINGS: Study is limited secondary to patient body habitus and portable technique. The right kidney measures 9.4 cm in length and is unremarkable without renal calculi, hydronephrosis or suspicious mass lesion identified. The left kidney measures 9.9 cm in length and is also unremarkable without renal calculi, hydronephrosis or suspicious mass lesion identified. Urinary bladder is partially collapsed. Ureteral jets are not identified. IMPRESSION: 1. Limited study secondary to patient body habitus and portable technique. 2. Unremarkable sonographic appearance of the kidneys and urinary bladder without renal calculi or hydronephrosis. The above report was generated using voice recognition software. It may contain grammatical, syntax or spelling errors. Electronically signed by: Rey Campos M.D. 04/05/2018 5:32 PM Dictated Date/Time: 04/05/2018 5:29 PM
[2018-04-05] MEDS: ROPINIROLE HCL 0.25 MG TAB PO SCH (19:53)
[2018-04-05] MEDS: SENNA 8.6 MG TAB PO SCH (19:54)
--- NOTE | 2018-04-05 22:35 | Progress Note ---
Subjective Date of Service: Apr 05, 2018. Subjective Pt evaluation today including: conversation w/ patient, conversation w/ family , physical exam Patient is 83 yo female. Patient was resting when I was in the room. D/W daughter in her room. She had questions regarding potassium. She states she was on aldactone before. She states that she is also on midodrine before that would perk her up. She also states that she needs to keep her SBP above 130 with a limit to 160. She also states that her hemoglobin has to above 10, because that is what her [employer] Gr[employer] wants. Patient is more awake and she states that she is short of breath despite not looking dyspneic. Problem List Medical Problems: (1) Cervical strain Status: Acute (2) Contusion of multiple sites Status: Acute (3) COPD exacerbation Status: Acute (4) Fall Status: Acute (5) Fall from chair, initial encounter Status: Acute (6) Fatigue Status: Acute (7) Head injury Status: Acute (8) Head injury Status: Acute (9) Hip pain Status: Acute (10) Hypocalcemia Status: Acute (11) Hypoxia Status: Acute (12) Hypoxia Status: Acute (13) Lower extremity edema Status: Acute (14) PNA (pneumonia) Status: Acute (15) Pneumonia Status: Acute (16) Pneumonitis Status: Acute (17) Reactive airway disease Status: Acute (18) Right flank pain Status: Acute (19) Sepsis Status: Acute (20) Sepsis Status: Acute (21) Syncope Status: Acute (22) Traumatic compression fracture of third thoracic vertebra Status: Acute (23) Vaginal yeast infection Status: Acute (24) Weakness Status: Acute (25) Yeast vaginitis Status: Acute Review of Systems Constitutional: No fever Eyes: No worsening of vision ENT: No unusual epistaxis Respiratory: + cough, + shortness of breath Cardiac: No chest pain Breast: No breast lump Abdomen: + pain, No nausea Musculoskeletal: No joint pain Neurologic: No memory loss Psychiatric: + depression symptoms Endo: + fatigue Skin: No rash Objective Vital Signs Date Time Temp Pulse Resp B/P (MAP) Pulse Ox O2 Delivery O2 Flow Rate FiO2 04/05/18 20:30 Trach Collar 6.0 28 04/05/18 19:11 74 20 97 Trach Collar 28 04/05/18 16:00 97 Trach Collar 6.0 04/05/18 15:09 36.8 85 20 122/72 (89) 96 Trach Collar 04/05/18 14:07 88 20 96 Trach Collar 28 04/05/18 08:34 37.2 72 20 112/59 (76) 95 Trach Collar 6.0 04/05/18 08:30 96 Trach Collar 6.0 04/05/18 07:11 90 22 96 Trach Collar 28 04/05/18 02:07 80 20 95 Trach Collar 28 04/05/18 00:00 Trach Collar 6.0 28 04/04/18 23:51 36.8 80 20 118/68 (85) 95 Trach Collar 6.0 Physical Exam Comments: General Appearance: no apparent distress, + obese, + pertinent finding ( cushingnoid facies) ENT: pharynx normal (no thrush, MMM) Neck: no JVD, + pertinent finding (trach in place; copious, thick, delgado-yellow secretions present in trach opening, site appears more irritated) Respiratory/Chest: + decreased breath sounds (bases), + pertinent finding ( very course BS b/l ) Cardiovascular: regular rate, rhythm, no gallop Abdomen: no organomegaly, + distended (no change from yesterday's exam), + tenderness Extremities: no pedal edema Neurologic/Psychiatric: alert, oriented x 3, calm today. Skin: + pertinent finding (PICC line, RUE - clean ; ecchymoses on legs, arms ) Laboratory Results Last 24 Hours Test 04/05/18 05:33 04/05/18 07:45 04/05/18 11:45 04/05/18 13:53 Creatinine 4.36 mg/dl 4.82 mg/dl Est Creatinine Clear Calc Drug Dose 10.2 ml/min 9.5 ml/min Estimated GFR () 10.3 9.1 Estimated GFR (Non- 8.9 7.9 Random Vancomycin Level 36.3 mcg/ml Bedside Glucose 97 mg/dl 140 mg/dl Sodium Level 142 mmol/L Potassium Level 3.6 mmol/L Chloride Level 109 mmol/L Carbon Dioxide Level 24 mmol/L Anion Gap 9.0 mmol/L Blood Urea Nitrogen 22 mg/dl BUN/Creatinine Ratio 4.6 Random Glucose 168 mg/dl Calcium Level 7.7 mg/dl Test 04/05/18 16:42 04/05/18 18:25 04/05/18 20:10 Bedside Glucose 171 mg/dl 162 mg/dl Urine Color YELLOW Urine Appearance TURBID Urine pH 5.[address] 1.021 Urine Protein 1+ Urine Glucose (UA) NEG Urine Ketones TRACE Urine Occult Blood 3+ Urine Nitrite NEG Urine Bilirubin NEG Urine Urobilinogen NEG Urine Leukocyte Esterase NEG Urine WBC (Auto) 1-5 /hpf Urine RBC (Auto) 5-10 /hpf Urine Hyaline Casts (Auto) 1-5 /lpf Urine Epithelial Cells (Auto) >30 /lpf Urine Bacteria (Auto) NEG Urine Pathogenic Casts /lpf Urine Yeast (Auto) PRESENT Urine Random Sodium 43 mEq/L Assessment and Plan 83yo female: 1. b/l pneumonia - 2nd to MRSA - day #13 of therapy. Continue vanco for MRSA. Plan 10-14 days of Rx. Patient had no fevers today, nor overnight Patient has a trach due likely to her weight, large neck and cushinoid features causing an obstruction. Patient currently on high flow oxygen. Will obtain ENT consult to switch trach to a uncuffed trach. Plan is for monday. Vanco level is currently toxic. Will likely not require another dose as tomorrow is last day of antibiotic 2. new-onset a. fib - converted to NSR earlier this stay with amiodarone. Resumed amiodarone by mouth along w/ eliquis. 3. ileus - ongoing. Patient pulled out her NG tube 2 nights ago. Fortunately she has not had nausea/emesis. With that said she has had no bowel movement. Will CONTINUE reglan IV q6h. Allow diet as desired/tolerated. Despite lack of BM, patient is not worse. May consider lactulose. 4. acute/chronic hypoxic respiratory failure - s/p trach placement. Acute component 2nd to #1. 5. dysphagia - patient refusing permanent feeding tube. She pulled out her NG tube 2 nights ago as well. Speech re-evaluated her 03/30/18 w/ bedside swallow and patient placed back on thickened liquids. Tolerating such thus far. Allow mech soft diabetic diet as desired/tolerated. Patient today tolerated soft diet. 6. protein calorie malnutrition, moderate-severe degree - again she is refusing permanent feeding tube. Ongoing issue. Doubt it will improve. 7. COPD with mild exacerbation - wean to prednisone 20mg daily in the AM.. 8. H/O DVTs - noted; resumed eliquis. 9. Acute on CKD stage 3 - creatinine has increased to above 4. Vanco levels are toxic. Patient also has not made sufficent urine. Will monitor, cont IV fluids. Consult nephro. 10. Hypothyroidism - compensated; cont synthroid. 11. T2DM - controlled. 12. chronic diastolic CHF - compensated. In fact she has lost weight in the hospital. 13. right-sided elevated Hemidiaphragm - S/P Plication in the past. 14. depression - resumed SSRI. Consider titration and/or addition of additional medication. 15. HTN - controlled 16. FEN -restart IVF. Diet if desired. 17. DVT proph - eliquis. 18. RLS - requip. Continued [facility] stay due to: fever, inadequate po fluid intake, inadequate oral pain control, voiding difficulties, ambulation difficulties, multiple IV medications needed, other (ileus, pneumonia, etc) Discharge planning: uncertain
[2018-04-06] VITALS (13 sets, daily range): BP systolic 112–158; BP diastolic 68–86; PULSE 68–82; TEMP 36.5–37.4; O2SAT 93–99
[2018-04-06] MEDS: METOCLOPRAMIDE HCL INJ 5 MG/ML 2 ML VIAL IV. SCH ×5 (01:03→23:42)
[2018-04-06] MEDS: ALBUT/IPRATROP 3MG/0.5MG NEB 3 ML VIAL NEB SCH ×4 (02:03→19:20)
[2018-04-06] MEDS: LACTATED RINGER'S 1000ML 1,000 ML IV SCH ×2 (05:40→20:35)
[2018-04-06] MEDS: LEVOTHYROXINE 100 MCG TAB PO SCH (06:30)
[2018-04-06 06:54] LABS: ALBUMIN 2.2 gm/dl (3.4-5.0); CALCIUM 7.5 mg/dl (8.5-10.1); CREATININE 5.22 mg/dl (0.60-1.20); PHOSPHORUS 3.6 mg/dl (2.5-4.9); POTASSIUM 3.1 mmol/L (3.5-5.1)
[2018-04-06] MEDS: INSULIN ASPART 100 UNITS/ML 3 ML PEN SC SCH ×4 (08:31→20:31)
[2018-04-06] MEDS: BOOST PLUS VANILLA OR BOOST GLUCOSE CONTROL STRAWBERRY PO SCH ×4 (08:32→20:00)
[2018-04-06] MEDS: NYSTATIN POWDER 15GM BTL EXT SCH ×3 (08:32→20:33)
[2018-04-06] MEDS: SUCRALFATE 1 GM/10 ML UDC PO SCH ×4 (08:32→20:25)
[2018-04-06] MEDS ORDERED: ATROPINE SULFATE 0.1 MG/ML 5ML SYR IV PRN (11:15)
[2018-04-06] MEDS ORDERED: ONDANSETRON INJ 2 MG/ML 2 ML VIAL IV PRN (11:15)
--- NOTE | 2018-04-06 11:45 | [facility] Post Operative Brief Note ---
Immediate Operative Summary Operative Date Apr 06, 2018. Pre-Operative Diagnosis Respiratory failure Post-Operative Diagnosis same Procedure(s) Performed Tracheostomy with rotation flaps Surgeon Dr. Velazquez Windows Vmware Engineer Surgeon(s) none Estimated Blood Loss 5 cc Findings Consistent with Post-Op Diagnosis Specimens none, as per surgeon Drains None Anesthesia Type MAC Complication(s) none Disposition Accompanied Pt To Recover: yes Disposition: Recovery Room / PACU Overlapping Procedure I was present for: the critical portions of procedure. I was immediately available: during the entire case
--- NOTE | 2018-04-06 12:17 | OPERATIVE REPORT ---
DATE OF OPERATION: 04/06/2018 PREOPERATIVE DIAGNOSIS: Respiratory failure. POSTOPERATIVE DIAGNOSIS: Respiratory failure. PROCEDURE: Bronchoscopy and trach change. SURGEON: Xiomara Velazquez MD ANESTHESIA: Sedation. COMPLICATIONS: None. BLOOD LOSS: 1 mL. HISTORY OF PRESENT ILLNESS: An 83-year-old lady underwent a tracheostomy by me 2 weeks ago, developed some infection around the trach. Dr. Oleary requested a trach change. DESCRIPTION OF PROCEDURE: The patient was brought to the operating room and placed in the semi-sitting position. The sutures around the trach were removed. The trach site was cleaned. The trach flaps were all viable and looks to be in good position. The bronchoscope was introduced and the #6 Shiley cuffless tracheostomy tube was placed over the bronchoscope. The original trach was removed and then the #6 Shiley tracheostomy tube was placed over the bronchoscope visualizing the shaan with the bronchoscope and then flipping the #[address] The trach tape was secured. The patient tolerated the procedure well and was taken to recovery area in satisfactory condition. I attest to the content of the Intraoperative Record and any orders documented therein. Any exception s are noted below.
--- NOTE | 2018-04-06 12:48 | Anesthesiology Progress Note ---
Anesthesia Post Op Note Date & Time Apr 06, 2018 at 12:48 Vital Signs Pain Intensity: 0 Vital Signs Past 12 Hours Date Time Temp Pulse Resp B/P (MAP) Pulse Ox O2 Delivery O2 Flow Rate FiO2 04/06/18 12:38 82 25 97 04/06/18 12:38 82 25 04/06/18 12:36 135/70 18 12:33 83 21 18 12:33 83 21 96 04/06/18 12:31 152/69 04/06/18 12:28 84 28 04/06/18 12:28 84 28 96 04/06/18 12:26 134/82 04/06/18 12:23 79 29 04/06/18 12:23 82 29 88 04/06/18 12:22 87 32 04/06/18 12:22 86 32 96 04/06/18 12:21 139/79 04/06/18 12:19 36.9 86 28 139/79 (84) 95 Trach Collar 5.0 30 04/06/18 12:17 86 28 04/06/18 12:17 86 28 95 04/06/18 12:16 86 27 04/06/18 12:16 86 27 134/76 95 18 12:12 130/73 04/06/18 12:11 85 30 04/06/18 12:11 86 30 95 04/06/18 12:07 177/77 04/06/18 12:06 97 34 90 04/06/18 12:06 88 34 04/06/18 12:01 90 26 127/100 95 04/06/18 12:01 90 26 04/06/18 11:56 90 29 04/06/18 11:56 90 29 124/94 96 18 11:52 137/63 18 11:51 55 2018 11:51 36.8 82 4 137/63 (67) 96 Trach Collar 5.0 04/06/18 11:51 55 20/18 07:35 68 20 96 Trach Collar 28 04/06/18 07:30 96 Trach Collar 6.0 04/06/18 07:07 36.6 69 20 112/68 (83) 96 Trach Collar 6.0 04/06/18 02:03 78 20 98 Trach Collar 28 Notes Mental Status: alert / awake / arousable, participated in evaluation Pt Amnestic to Procedure: Yes Nausea / Vomiting: adequately controlled Pain: adequately controlled Airway Patency, RR, SpO2: stable & adequate BP & HR: stable & adequate Hydration State: stable & adequate Anesthetic Complications: no major complications apparent
--- NOTE | 2018-04-06 12:49 | PROGRESS NOTE ---
DATE: 04/06/2018 SUBJECTIVE: Mrs. Philip was seen immediately after her operating room procedure today. Her tracheostomy tube was changed by Dr. Velazquez when she had a bronchoscopy. Apparently her tracheostomy tube was clogged with some mucus. Additionally, her bronchoscopy showed only mucus. No other significant findings were noted. She was in the PACU and was awake and alert. She denied having any pain. She denied feeling short of breath. OBJECTIVE: GENERAL: On physical exam when seen by me, she was somewhat lethargic but easily aroused. She did recognize me (I cared for her a number of years ago). VITAL SIGNS: Her blood pressure was 127/106, her pulse was 88 and regular, respiratory rate was 20, her pulse ox 95% with oxygen administered via cuff. SKIN: Showed normal skin turgor. She had some scattered ecchymoses. Tracheostomy is in place. There was no bleeding from the tracheostomy site. 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 LYMPHATICS: Showed no palpable adenopathy. HEAD: Grossly normal. EYES: Grossly normal. The ocular fundi were not examined. EARS, NOSE, MOUTH AND THROAT: Unremarkable. Oral mucous membranes are moist. NECK: Showed the tracheostomy. I saw no jugular venous distention, but the exam was limited by her body habitus. I hear no carotid bruit. CHEST: Showed limited inspiratory effort. She had scattered rhonchi, but no rales. CARDIAC: Showed a regular rhythm. S1 and S2 seemed normal. There was a soft systolic murmur at the upper left sternal border and base. ABDOMEN: Nontender. There is no obvious organomegaly or mass. Bowel sounds are present. EXTREMITIES: Showed 1-2+ lower extremity edema. NEUROLOGIC: Showed her to be responsive to me. There were no lateralizing changes. Her urine output thus far today was only about 150 mL. It was not accurately recorded for the past 2 days. PERTINENT LABORATORY WORK: From today showed a serum sodium of 144 mmol/L, potassium 3.1 mmol/L, chloride is 110 mmol/L, and CO2 content 25 mmol/L. Her anion gap calculated at 9. However, her serum albumin is 2.2. Therefore, her anion gap is probably more in the range of 14. Her BUN is 24. Her creatinine is 5.22. Her calcium is 7.5 with a phosphate of 3.6. Blood sugars vary from 83-171. ASSESSMENT: Mrs. Philip has acute renal failure very likely secondary to vancomycin nephrotoxicity. Vancomycin was discontinued as soon as the elevation of her serum creatinine was noted. Currently, the rate of rise of her serum creatinine appears to have slowed. Hopefully, that is an indication that this can turn around. It may be several days before we see the maximum improvement in her renal function. Her serum potassium is low. It is hard to completely characterize the etiology of her hypokalemia without arterial blood gases. She is getting potassium supplements. She does have some edema, which is to a great extent, probably related to her low serum albumin. However, the degree of her acute renal insufficiency is also a contributing factor. An ultrasound of her kidneys failed to show any evidence of an obvious hydronephrosis. The study was limited to some extent for technical reasons related to her body habitus and the fact that it was done as a portable study. RECOMMENDATIONS: No change, continue supportive care. Will continue the close monitoring of her renal function on a daily basis. Also given her acute renal failure, observation of her electrolytes and serum potassium is likewise necessary. We should also be closely monitoring her urine output. A urine for sodium and creatinine can be done today to try to assess her fractional excretion of sodium while she is oliguric. Certainly if her fractional excretion of sodium is above 10, it speaks to acute tubular dysfunction which is a manifestation of vancomycin nephrotoxicity.
[2018-04-06] MEDS: PANTOprazole SOD 40 MG TAB PO SCH (12:57)
[2018-04-06] MEDS: POTASSIUM CHLR 10 MEQ / WTR 100 ML IV SCH ×2 (12:57→14:23)
[2018-04-06] MEDS: GABAPENTIN 300 MG CAP PO SCH ×2 (12:58→20:26)
[2018-04-06] MEDS: APIXABAN 2.5 MG TAB PO SCH ×2 (12:58→20:25)
[2018-04-06] MEDS: AMIODARONE 200 MG TAB PO SCH (12:58)
[2018-04-06] MEDS: CITALOPRAM 20 MG TAB PO SCH (12:58)
--- NOTE | 2018-04-06 15:01 | PULMONARY PROGRESS NOTE ---
DATE: 04/06/2018 PULMONARY PROGRESS NOTE TIME: 2:15 p.m. SUBJECTIVE: The patient had a tracheostomy change within the past 1-2 hours. She is currently sleeping. She had been awake earlier. I spoke with nursing who indicated that patient did try some after the procedure. They felt she was getting somewhat congested and bringing up loose secretions and so they stopped feeding her. The patient does not appear in any degree of shortness of breath. She has a new trach in place. Within the trach are some serosanguineous and slightly bloody secretions. The tracheostomy itself is a size 6 as was the prior trach. It is uncuffed. It does appear somewhat loose. The neck strappings are not very snug. OBJECTIVE: GENERAL: The patient appears slightly flushed. VITAL SIGNS: Temperature is 37.3. Heart rate is 82 per minute. Blood pressure 158/77. Respiratory rate at the time of this exam is 24. It is not labored. No rhonchi were heard at present. Saturation was 99% on 6 liter trach collar. LABORATORY DATA: Today shows sodium 144, potassium 3.1, chloride 110, bicarbonate 25. BUN is 24 with a creatinine 5.22. This has increased from yesterday afternoon when the creatinine was 4.82. Nephrology is now on the case and making suggestions. A spot urinary sodium yesterday was 43. ASSESSMENT: 1. [id number] respiratory failure with hypoxia and hypercarbia -- improved. 2. Chronic obstructive pulmonary disease. 3. Cor pulmonale. 4. Obstructive sleep apnea. 5. Obesity hypoventilation syndrome. 6. Status post tracheostomy. 7. Dysphagia. 8. Renal failure. RECOMMENDATIONS: Would continue with her respiratory medications as present. Prognosis remains very guarded.
[2018-04-06] MEDS: ACETAMINOPHEN IV 1000MG/100ML IV PRN (15:42)
[2018-04-06] MEDS ORDERED: LACTULOSE SYRUP 30 GM/45 ML UDP PO ONE (18:45)
[2018-04-06] MEDS: SENNA 8.6 MG TAB PO SCH (20:25)
[2018-04-06] MEDS: ROPINIROLE HCL 0.25 MG TAB PO SCH (20:26)
[2018-04-06] MEDS: DICLOFENAC SOD 1% GEL 100 GM TUBE EXT PRN (23:49)
[2018-04-07] VITALS (9 sets, daily range): BP systolic 143–152; BP diastolic 75–90; PULSE 72–87; TEMP 36.6–37.2; O2SAT 97–99
[2018-04-07] MEDS: ACETAMINOPHEN 325 MG TAB PO PRN ×2 (01:19→19:53)
[2018-04-07] MEDS: ALBUT/IPRATROP 3MG/0.5MG NEB 3 ML VIAL NEB SCH ×4 (01:49→19:18)
[2018-04-07] MEDS: LEVOTHYROXINE 100 MCG TAB PO SCH (05:41)
[2018-04-07] MEDS: METOCLOPRAMIDE HCL INJ 5 MG/ML 2 ML VIAL IV. SCH ×3 (05:41→18:35)
[2018-04-07] MEDS: LACTATED RINGER'S 1000ML 1,000 ML IV SCH ×2 (05:41→12:23)
[2018-04-07 06:25] LABS: ALBUMIN 2.1 gm/dl (3.4-5.0); CALCIUM 7.5 mg/dl (8.5-10.1); CREATININE 5.87 mg/dl (0.60-1.20); PHOSPHORUS 3.3 mg/dl (2.5-4.9); POTASSIUM 4.3 mmol/L (3.5-5.1)
--- NOTE | 2018-04-07 07:48 | Progress Note ---
Subjective Date of Service: Apr 06, 2018. Subjective Pt evaluation today including: conversation w/ patient, physical exam Patient seen in the afternoon. Patient returned from having trach change Patient states feeling short of breath and is having secretions coming from her trach. Problem List Medical Problems: (1) Cervical strain Status: Acute (2) Contusion of multiple sites Status: Acute (3) COPD exacerbation Status: Acute (4) Fall Status: Acute (5) Fall from chair, initial encounter Status: Acute (6) Fatigue Status: Acute (7) Head injury Status: Acute (8) Head injury Status: Acute (9) Hip pain Status: Acute (10) Hypocalcemia Status: Acute (11) Hypoxia Status: Acute (12) Hypoxia Status: Acute (13) Lower extremity edema Status: Acute (14) PNA (pneumonia) Status: Acute (15) Pneumonia Status: Acute (16) Pneumonitis Status: Acute (17) Reactive airway disease Status: Acute (18) Right flank pain Status: Acute (19) Sepsis Status: Acute (20) Sepsis Status: Acute (21) Syncope Status: Acute (22) Traumatic compression fracture of third thoracic vertebra Status: Acute (23) Vaginal yeast infection Status: Acute (24) Weakness Status: Acute (25) Yeast vaginitis Status: Acute Review of Systems Constitutional: No fever, No chills Eyes: No worsening of vision ENT: No unusual epistaxis Respiratory: + cough, + shortness of breath Cardiac: No chest pain Abdomen: + pain Musculoskeletal: No joint pain Female : No hematuria Neurologic: No vertigo Psychiatric: + depression symptoms Heme: No abnormal bleeding/bruising Endo: + fatigue Skin: No rash All Other Systems: Reviewed and Negative Objective Vital Signs Date Time Temp Pulse Resp B/P (MAP) Pulse Ox O2 Delivery O2 Flow Rate FiO2 04/07/18 07:29 36.6 74 18 152/90 (110) 98 Trach Collar 5.0 04/07/18 07:20 84 20 98 Trach Collar 28 04/07/18 01:49 73 20 97 Trach Collar 28 04/07/18 01:00 Trach Collar 6.0 04/06/18 23:05 36.5 72 20 156/86 (109) 95 Trach Collar 04/06/18 21:43 96 Trach Collar 5.0 04/06/18 19:20 78 20 96 Trach Collar 28 04/06/18 16:00 93 Trach Collar 6.0 7/20/18 14:48 37.0 82 20 124/77 (93) 93 7/20/18 14:11 82 20 93 Trach Collar 28 7/20/18 14:00 37.3 82 20 158/77 (104) 99 Trach Collar 6.0 7/20/18 13:30 37.3 81 20 142/74 (96) 93 Trach Collar 6.0 7/20/18 12:54 37.4 80 20 136/73 (94) 96 Trach Collar 6.0 7/20/18 12:38 82 25 97 7/20/18 12:38 82 25 7/20/18 12:36 135/70 7/20/18 12:33 83 21 7/20/18 12:33 83 21 96 7/20/18 12:31 152/69 7/20/18 12:28 84 28 7/20/18 12:28 84 28 96 7/20/18 12:26 134/82 7/20/18 12:23 79 29 7/20/18 12:23 82 29 88 7/20/18 12:22 87 32 7/20/18 12:22 86 32 96 7/20/18 12:21 139/79 7/20/18 12:19 36.9 86 28 139/79 (84) 95 Trach Collar 5.0 30 7/20/18 12:17 86 28 7/20/18 12:17 86 28 95 7/20/18 12:16 86 27 7/20/18 12:16 86 27 134/76 95 7/20/18 12:12 130/73 7/20/18 12:11 85 30 7/20/18 12:11 86 30 95 7/20/18 12:07 177/77 7/20/18 12:06 97 34 90 7/20/18 12:06 88 34 7/20/18 12:01 90 26 127/100 95 7/20/18 12:01 90 26 7/20/18 11:56 90 29 7/20/18 11:56 90 29 124/94 96 7/20/18 11:52 137/63 7/20/18 11:51 55 7/20/18 11:51 36.8 82 4 137/63 (67) 96 Trach Collar 5.0 7/20/18 11:51 55 Physical Exam Comments: General Appearance: no apparent distress, + obese, + pertinent finding ( cushingnoid facies) ENT: pharynx normal (no thrush, MMM) Neck: no JVD, + pertinent finding (trach in place; serosanguineous secretions noted today) Respiratory/Chest: + decreased breath sounds (bases), Cardiovascular: regular rate, rhythm, no gallop Abdomen: no organomegaly, + decreased distention today, + tenderness Extremities: no pedal edema Neurologic/Psychiatric: alert, oriented x 3, calm today. Skin: + pertinent finding (PICC line, RUE - clean ; ecchymoses on legs, arms ) Laboratory Results Last 24 Hours Test 04/06/18 09:57 04/06/18 13:15 04/06/18 16:48 04/06/18 20:23 Bedside Glucose 83 mg/dl 79 mg/dl 114 mg/dl 182 mg/dl Test 04/07/18 05:25 04/07/18 06:05 Sodium Level 143 mmol/L Potassium Level 4.3 mmol/L Chloride Level 112 mmol/L Carbon Dioxide Level 25 mmol/L Anion Gap 6.0 mmol/L Blood Urea Nitrogen 27 mg/dl Creatinine 5.87 mg/dl Est Creatinine Clear Calc Drug Dose 7.7 ml/min Estimated GFR () 7.2 Estimated GFR (Non- 6.2 BUN/Creatinine Ratio 4.5 Random Glucose 127 mg/dl Calcium Level 7.5 mg/dl Phosphorus Level 3.3 mg/dl Albumin 2.1 gm/dl Urine Random Creatinine 109.0 mg/dl Urine Random Sodium 79 mEq/L Assessment and Plan 83yo female: 1. b/l pneumonia - 2nd to MRSA - completed 14 days of vanco. Continue vanco for MRSA. Plan 10-14 days of Rx. Patient had no fevers today, nor overnight Last fever noted on the 02 of April Patient has a trach due likely to her weight, large neck and cushinoid features causing an obstruction. Patient currently on high flow oxygen. Patient just had a change in her trach which is now uncuff. Size remains to be 6. Vanco level is currently toxic. Will likely not require another dose as tomorrow is last day of antibiotic 2. new-onset a. fib - converted to NSR earlier this stay with amiodarone. Resumed amiodarone by mouth along w/ eliquis. 3. ileus - ongoing. Patient pulled out her NG tube 2 nights ago. Fortunately she has not had nausea/emesis. With that said she has had no bowel movement. Will CONTINUE reglan IV q6h. Allow diet as desired/tolerated. Patient has had a BM today, which are small, will monitor. Patient did receive lactulose in past 24 hours. 4. acute/chronic hypoxic respiratory failure - s/p trach placement. Acute component 2nd to #1. 5. dysphagia - patient refusing permanent feeding tube. She pulled out her NG tube 2 nights ago as well. Speech re-evaluated her 03/30/18 w/ bedside swallow and patient placed back on thickened liquids. Tolerating such thus far. Allow mech soft diabetic diet as desired/tolerated. Patient today tolerated soft diet. 6. protein calorie malnutrition, moderate-severe degree - again she is refusing permanent feeding tube. Ongoing issue. Doubt it will improve. 7. COPD with mild exacerbation - wean to prednisone 20mg daily in the AM. will not recommend decreasing to 10 mg given the risk that she may become hypotensive from adrenal insufficiency. 8. H/O DVTs - noted; resumed eliquis. 9. Acute on CKD stage 3 - creatinine has increased to above 5. Vanco levels are toxic. Patient also has not made sufficent urine. Consulted neprho Likely ATN. will monitor. 10. Hypothyroidism - compensated; cont synthroid. 11. T2DM - controlled. 12. chronic diastolic CHF - compensated. In fact she has lost weight in the hospital. 13. right-sided elevated Hemidiaphragm - S/P Plication in the past. 14. depression - resumed SSRI. Consider titration and/or addition of additional medication. 15. HTN - controlled 16. FEN -restart IVF. Diet if desired. 17. DVT proph - eliquis. 18. RLS - requip. Continued [facility] stay due to: fever, inadequate po fluid intake, inadequate oral pain control, voiding difficulties, ambulation difficulties, multiple IV medications needed, other (ileus, pneumonia, etc) Discharge planning: uncertain
[2018-04-07] MEDS: BOOST PLUS VANILLA OR BOOST GLUCOSE CONTROL STRAWBERRY PO SCH ×5 (08:00→19:31)
[2018-04-07] MEDS: INSULIN ASPART 100 UNITS/ML 3 ML PEN SC SCH ×4 (09:08→21:00)
[2018-04-07] MEDS: NYSTATIN POWDER 15GM BTL EXT SCH ×3 (09:09→19:27)
[2018-04-07] MEDS: CITALOPRAM 20 MG TAB PO SCH (09:10)
[2018-04-07] MEDS: GABAPENTIN 300 MG CAP PO SCH ×2 (09:11→19:28)
[2018-04-07] MEDS: AMIODARONE 200 MG TAB PO SCH (09:13)
[2018-04-07] MEDS: SUCRALFATE 1 GM/10 ML UDC PO SCH ×4 (09:13→19:28)
[2018-04-07] MEDS: APIXABAN 2.5 MG TAB PO SCH ×2 (09:15→19:28)
[2018-04-07] MEDS: PANTOprazole SOD 40 MG TAB PO SCH (09:15)
[2018-04-07] MEDS: LANSOPRAZOLE SOLUTAB 30 MG NG SCH (12:35)
--- NOTE | 2018-04-07 12:50 | PULMONARY PROGRESS NOTE ---
DATE: 04/07/2018 TIME: 12:25 p.m. SUBJECTIVE: The patient is limited in her history due to the trach. She does complain of shortness of breath. I believe she has been generally uncomfortable. Her urine outputs have been poor. Thus far today, she has had a total of 125 mL of output. OBJECTIVE: GENERAL: The patient looks generally uncomfortable. VITAL SIGNS: Temperature is 36.6. Heart rate is 74 per minute. Blood pressure is 152/90. Oxygen saturation is 98% on 5-liter trach collar. HEENT: Her trach tube is in place. Nurses have been suctioning her. With nursing assistance, I set the patient forward to listen to her. Just sitting forward slightly for a few seconds resulted in her getting significant coughing and wheezing. LUNGS: The breath sounds are diminished, but they are heard. Wheezing was heard on expiration. ABDOMEN: Obese. She does have good bowel sounds. EXTREMITIES: Remain edematous. The left arm seems much more edematous than the right arm. LABORATORY DATA: Electrolytes today show sodium 143, potassium 4.3, chloride 112, bicarbonate 25. BUN is 27 with a creatinine 5.87. Yesterday's creatinine was 5.22. IMPRESSIONS: 1. Acute on chronic respiratory failure with hypoxia and hypercarbia. 2. Chronic obstructive pulmonary disease. 3. Cor pulmonale. 4. Obesity hypoventilation. 5. Obstructive sleep apnea. 6. Status post tracheostomy. 7. Dysphagia. 8. Acute renal failure. COMMENTS AND RECOMMENDATIONS: The patient continues to remain very marginal. I actually hear more wheezing today. Some of this may be tracheal irritation. She does remain on every 6 hours nebulizer treatments. She has p.r.n. treatments as well. She oxygenates very well despite her lung problems. She remains very debilitated.
--- NOTE | 2018-04-07 13:43 | Nephrology Progress Note ---
Nephrology Progress Note Date of Service Apr 07, 2018. Chief Complaint MANJULA Subjective No acute events overnight. Karen is resting comfortably in bed. She denies pain. No fevers or chills. Appetite fair. Review of Systems A complete review of systems was performed. Pertinent positives are noted above. All other systems are negative. Vital Signs Last 8 Hrs Date Time Temp Pulse Resp B/P (MAP) Pulse Ox O2 Delivery O2 Flow Rate FiO2 04/07/18 08:00 98 Trach Collar 28 04/07/18 07:29 36.6 74 18 152/90 (110) 98 Trach Collar 5.0 28 04/07/18 07:20 84 20 98 Trach Collar 28 Last Recorded Weight Weight (Kilograms): 87.800 Physical Exam General Appearance: no apparent distress, + pertinent finding (frail, elderly) Head: normocephalic, atraumatic Eyes: normal inspection, sclerae normal Neck: supple, + pertinent finding (trach) Respiratory/Chest: + decreased breath sounds, + rales Cardiovascular: regular rate, rhythm, + systolic murmur Abdomen/GI: non tender, soft Extremities/Musculoskelatal: + pedal edema (dependent edema), + pertinent finding (L>R UE edema) Neurologic/Psych: alert Family History Diabetes mellitus FH: cancer FH: gallbladder disease FH: heart disease FH: lung disease Hypertension Kidney disease or stones Social History Smoking Status: Never smoker Drug Use: none Marital Status: Housing Status: lives with family Occupation: retired Laboratory Results Past 24 Hours 04/07/18 05:25 Test 04/06/18 16:48 04/06/18 20:23 04/07/18 05:25 04/07/18 06:05 Bedside Glucose 114 mg/dl (70-90) 182 mg/dl (70-90) Anion Gap 6.0 mmol/L (3-11) Est Creatinine Clear Calc Drug Dose 7.7 ml/min Estimated GFR () 7.2 Estimated GFR (Non- 6.2 BUN/Creatinine Ratio 4.5 (10-20) Calcium Level 7.5 mg/dl (8.5-10.1) Phosphorus Level 3.3 mg/dl (2.5-4.9) Albumin 2.1 gm/dl (3.4-5.0) Urine Random Creatinine 109.0 mg/dl Urine Random Sodium 79 mEq/L Test 04/07/18 07:41 04/07/18 11:50 Bedside Glucose 115 mg/dl (70-90) 117 mg/dl (70-90) Allergies Coded Allergies: Adhesives (Verified Allergy, Severe, TAPE-REDNESS, BLISTERS, 03/19/18) Pneumococcal Vaccine (Verified Allergy, Severe, SHORTNESS OF BREATH, ) Metronidazole (Verified Allergy, Intermediate, skin rash, 03/19/18) allergic to generic form Phenazopyridine (Verified Allergy, Intermediate, abdominal pain/rash, ) Erythromycin (Verified Allergy, Mild, RASH, 03/19/18) Salicylates (Verified Allergy, Unknown, pt states rash with ASA 325 but not ASA 81mg, 03/19/18) Sulfa Antibiotics (Verified Allergy, Unknown, ON MED LIST, 03/19/18) Tetracycline (Verified Allergy, Unknown, RASH, 03/19/18) Morphine (Verified Adverse Reaction, Intermediate, urinary retention - oral morphine only, 03/19/18) Diltiazem (Verified Adverse Reaction, Mild, FLUID RETENTION, 03/19/18) Metoclopramide (Verified Adverse Reaction, Mild, TREMORS, 03/19/18) Bacitracin (Verified Adverse Reaction, Unknown, "MAKES IT WORSE"-OK IF NOT OTC MEDICATION, 03/19/18) OKAY IF NOT OVER THE COUNTER MEDICATION Medications Current Inpatient Medications Medications (Trade) Dose Ordered Sig/Natasha Route Start Time Stop Time Status Last Admin Dose Admin Acetaminophen (Tylenol Tab) 650 mg Q4H PRN PO 03/15/18 18:30 04/14/18 18:29 Future hold 04/07/18 01:19 650 MG Al Hydrox/Mg Hydrox/Simethicone (Maalox Max Susp) 15 ml Q4H PRN PO 03/15/18 18:30 04/14/18 18:29 Magnesium Hydroxide (Milk Of Magnesia Susp) 30 ml Q12H PRN PO 03/15/18 18:30 04/14/18 18:29 Ondansetron HCl (Zofran Inj) 4 mg Q6H PRN IV 03/15/18 18:30 04/14/18 18:29 Albuterol Sulfate (Ventolin 0.083% 2.5MG/3ML Neb) 2.5 mg Q4H PRN INH 03/15/18 18:30 04/14/18 18:29 Albuterol/ Ipratropium (Duoneb) 3 ml Q6R NEB 03/15/18 21:00 04/14/18 20:59 04/07/18 07:20 3 ML Citalopram Hydrobromide (celeXA TAB) 30 mg DAILY PO 03/16/18 09:00 04/15/18 08:59 Future hold 04/07/18 09:10 30 MG Diclofenac Sodium (Voltaren 1% Top Gel) 1 appln QID PRN EXT 03/15/18 19:30 04/14/18 19:29 04/06/18 23:49 1 APPLN Gabapentin (Neurontin Cap) 300 mg BID PO 03/15/18 21:00 04/14/18 20:59 Future hold 04/07/18 09:11 300 MG Levothyroxine Sodium (Synthroid Tab) 100 mcg DAILYBB PO 03/16/18 06:00 04/15/18 06:59 Future hold 04/07/18 05:41 100 MCG Nystatin (Mycostatin Powder) 1 appln TID EXT 03/15/18 21:00 04/14/18 20:59 04/07/18 09:09 1 APPLN Ropinirole HCl (Requip Tab) 0.5 mg HS PO 03/15/18 21:00 04/14/18 20:59 Future hold 04/06/18 20:26 0.5 MG Sucralfate (Carafate Susp) 1 gm QID PO 03/15/18 21:00 04/14/18 20:59 Future hold 04/07/18 12:22 1 GM Miscellaneous Information (Order Awaiting Action) 1 ea QS N/A 03/16/18 00:00 04/15/18 00:00 03/18/18 18:49 1 EA Glucose (Glucose 40% Gel) 15-30 GRAMS 15 GRAMS... UD PRN PO 03/15/18 19:00 04/14/18 18:59 Glucose (Glucose Chew Tab) 4-8 Tablets 4 Tabl... UD PRN PO 03/15/18 19:00 04/14/18 18:59 Dextrose (Dextrose 50% 50ML Syringe) 25-50ML 25ML FOR ... UD PRN IV 03/15/18 19:00 04/14/18 18:59 Glucagon (Glucagon Inj) 1 mg UD PRN SQ 03/15/18 19:00 04/14/18 18:59 Carbohydrates (Carbohydrates For Hypoglycemia) 15-30 GRAMS 15 grams if BSG 54-69... UD PRN PO 03/15/18 19:00 04/14/18 18:59 Heparin Sodium (Porcine) (Heparin 10 Unit/ ml 5 ml Flush) 5 ml PRN PRN FLUSH 03/20/18 00:30 04/19/18 00:29 04/03/18 19:48 5 ML Amiodarone HCl (Cordarone Tab) 200 mg DAILY PO 03/29/18 09:00 04/28/18 08:59 04/07/18 09:13 200 MG Non-Formulary Medication (Non-Formulary Patient'S Own Med) 1 ea DAILY PO 03/22/18 09:00 04/21/18 08:59 04/04/18 08:05 1 EA Senna (Senokot Tab) 17.2 mg HS PO 03/24/18 21:00 04/23/18 20:59 Future hold 04/06/18 20:25 17.2 MG Acetaminophen 100 ml @ 400 mls/hr Q8H PRN IV 03/25/18 15:45 04/24/18 15:44 04/06/18 15:42 400 MLS/HR Lorazepam (Ativan Inj) 0.5 mg Q6H PRN IV 03/27/18 18:15 04/26/18 18:14 03/31/18 03:54 0.5 MG Lorazepam 0.5 mg/ Syringe 1 ml @ 1 mls/min Q6H PRN IV 03/27/18 18:45 04/26/18 18:44 Metoclopramide HCl (Reglan Inj) 5 mg Q6H IV. 03/30/18 12:00 04/29/18 11:59 04/07/18 12:22 5 MG Insulin Aspart (novoLOG ASPART) SLIDING SCALE If C... ACHS SC 04/01/18 07:00 05/01/18 06:59 04/06/18 20:31 1 UNITS Prednisone (PredniSONE TAB) 20 mg QAM PO 04/02/18 09:00 8/14/18 08:59 04/07/18 09:10 20 MG Apixaban (Eliquis Tab) 2.5 mg BID PO 04/04/18 20:00 05/04/18 20:59 04/07/18 09:15 2.5 MG Lactated Ringer's 1,000 ml @ 100 mls/hr Q10H IV 04/04/18 13:45 05/04/18 13:44 04/07/18 12:23 100 MLS/HR Enteral Nutritional Formula (Boost Plus Vanilla) 0.5 can QID PO 04/05/18 17:00 05/05/18 16:59 04/07/18 12:36 0.5 CAN Lansoprazole (Prevacid Solutab) 30 mg DAILY NG 04/07/18 09:30 05/07/18 09:29 04/07/18 12:35 30 MG Impression (1) MANJULA (acute kidney injury) Karen Philip is a chronically ill and frail 83-year-old female with multiple comorbid medical conditions. 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 Karen is now being managed with tracheostomy and a chronic oxygen requirement. She has developed oliguric MANJULA consistent with ATN. ATN possibly secondary to vancomycin nephrotoxicity. Vancomycin has been discontinued. Renal US did not show evidence of obstruction. UA is bland with acellular microscopy. Urine sodium excretion consistent with tubular injury. Recommendations -- Stop IVF -- Encourage nutrition -- Document I/O's -- Check metabolic profile daily -- No current indication for [employer], dialysis not likely to provide clinical benefit given comorbid medical conditions -- Daughter updated
[2018-04-07] MEDS ORDERED: LACTULOSE SYRUP 30 GM/45 ML UDP PO STA (16:36)
[2018-04-07] MEDS ORDERED: MIDODRINE 2.5 MG TAB PO PRN (16:45)
[2018-04-07] MEDS: ROPINIROLE HCL 0.25 MG TAB PO SCH (19:28)
[2018-04-07] MEDS: SENNA 8.6 MG TAB PO SCH (19:29)
[2018-04-08] VITALS (8 sets, daily range): BP systolic 138–145; BP diastolic 69–80; PULSE 63–84; TEMP 36.5–37; O2SAT 94–99
[2018-04-08] MEDS: METOCLOPRAMIDE HCL INJ 5 MG/ML 2 ML VIAL IV. SCH ×4 (01:00→17:35)
[2018-04-08] MEDS: ALBUT/IPRATROP 3MG/0.5MG NEB 3 ML VIAL NEB SCH ×4 (01:54→20:03)
[2018-04-08 06:10] LABS: EOS % 0.3 %; EOS ABS # 0.01 K/uL (0-0.5); HEMOGLOBIN 9.8 g/dL (12.0-16.0); IG# 0.08 K/uL (0.00-0.02); LYMPH % 16.9 %; LYMPH ABS # 0.67 K/uL (1.2-3.4); MEAN CELL VOLUME 96.4 fL (80-100); MEAN CORPUSCULAR HEMOGLOBIN 29.5 pg (25-34); MEAN CORPUSCULAR HGB CONC 30.6 g/dl (32-36); MEAN PLATELET VOLUME 10.7 fL (7.4-10.4); MONO % 11.6 %; MONO ABS # 0.46 K/uL (0.11-0.59); NEUT % 69.2 %; NEUT ABS # 2.75 K/uL (1.4-6.5); PLATELET COUNT 210 K/uL (130-400); RED CELL DISTRIBUTION WIDTH CV 16.1 % (11.5-14.5); RED CELL DISTRIBUTION WIDTH SD 56.8 fL (36.4-46.3); WHITE BLOOD COUNT 3.97 K/uL (4.8-10.8)
[2018-04-08] MEDS: LEVOTHYROXINE 100 MCG TAB PO SCH (06:18)
[2018-04-08 06:54] LABS: ALBUMIN 2.3 gm/dl (3.4-5.0); CALCIUM 7.8 mg/dl (8.5-10.1); CREATININE 6.04 mg/dl (0.60-1.20); PHOSPHORUS 3.3 mg/dl (2.5-4.9); POTASSIUM 4.3 mmol/L (3.5-5.1)
--- NOTE | 2018-04-08 07:27 | Progress Note ---
Subjective Date of Service: Apr 07, 2018. Subjective Patient reports some mild abd. pain in RUQ. Patient denies any other symptoms today. States she is breathing better. Problem List Medical Problems: (1) Cervical strain Status: Acute (2) Contusion of multiple sites Status: Acute (3) COPD exacerbation Status: Acute (4) Fall Status: Acute (5) Fall from chair, initial encounter Status: Acute (6) Fatigue Status: Acute (7) Head injury Status: Acute (8) Head injury Status: Acute (9) Hip pain Status: Acute (10) Hypocalcemia Status: Acute (11) Hypoxia Status: Acute (12) Hypoxia Status: Acute (13) Lower extremity edema Status: Acute (14) PNA (pneumonia) Status: Acute (15) Pneumonia Status: Acute (16) Pneumonitis Status: Acute (17) Reactive airway disease Status: Acute (18) Right flank pain Status: Acute (19) Sepsis Status: Acute (20) Sepsis Status: Acute (21) Syncope Status: Acute (22) Traumatic compression fracture of third thoracic vertebra Status: Acute (23) Vaginal yeast infection Status: Acute (24) Weakness Status: Acute (25) Yeast vaginitis Status: Acute Review of Systems unable to obtain ROS due to patient being somnolent Objective Vital Signs Date Time Temp Pulse Resp B/P (MAP) Pulse Ox O2 Delivery O2 Flow Rate FiO2 04/08/18 07:17 36.6 72 20 145/80 (101) 99 Trach Collar 2.0 28 04/08/18 07:15 80 20 96 Trach Collar 28 04/08/18 01:54 72 20 97 Trach Collar 04/07/18 23:29 37.1 72 20 150/75 (100) 99 Trach Collar 8.0 04/07/18 20:14 Trach Collar 28 04/07/18 19:18 80 20 99 Trach Collar 28 04/07/18 16:00 99 Trach Collar 28 04/07/18 15:00 37.2 79 20 143/77 (99) 99 Trach Collar 6.0 28 04/07/18 14:14 87 20 98 Trach Collar 28 04/07/18 08:00 98 Trach Collar 28 04/07/18 07:29 36.6 74 18 152/90 (110) 98 Trach Collar 5.0 28 Physical Exam Comments: General Appearance: no apparent distress, + obese, + pertinent finding ( cushingnoid facies), somnolent ENT: pharynx normal (no thrush, MMM) Neck: no JVD, + pertinent finding (trach in place; serosanguineous secretions noted today) Respiratory/Chest: + decreased breath sounds (bases), Cardiovascular: regular rate, rhythm, no gallop Abdomen: no organomegaly, + decreased distention today, + tenderness Extremities: no pedal edema Neurologic/Psychiatric: somnolent, knows she is in hospital and knows her name Skin: + pertinent finding (PICC line, RUE - clean ; ecchymoses on legs, arms ) Laboratory Results Last 24 Hours Test 04/07/18 07:41 04/07/18 11:50 04/07/18 16:23 04/07/18 20:29 Bedside Glucose 115 mg/dl 117 mg/dl 147 mg/dl 172 mg/dl Test 04/08/18 05:23 White Blood Count 3.97 K/uL Red Blood Count 3.32 M/uL Hemoglobin 9.8 g/dL Hematocrit 32.0 % Mean Corpuscular Volume 96.4 fL Mean Corpuscular Hemoglobin 29.5 pg Mean Corpuscular Hemoglobin Concent 30.6 g/dl Platelet Count 210 K/uL Mean Platelet Volume 10.7 fL Neutrophils (%) (Auto) 69.2 % Lymphocytes (%) (Auto) 16.9 % Monocytes (%) (Auto) 11.6 % Eosinophils (%) (Auto) 0.3 % Basophils (%) (Auto) 0.0 % Neutrophils # (Auto) 2.75 K/uL Lymphocytes # (Auto) 0.67 K/uL Monocytes # (Auto) 0.46 K/uL Eosinophils # (Auto) 0.01 K/uL Basophils # (Auto) 0.00 K/uL RDW Standard Deviation 56.8 fL RDW Coefficient of Variation 16.1 % Immature Granulocyte % (Auto) 2.0 % Immature Granulocyte # (Auto) 0.08 K/uL Sodium Level 146 mmol/L Potassium Level 4.3 mmol/L Chloride Level 110 mmol/L Carbon Dioxide Level 26 mmol/L Anion Gap 9.0 mmol/L Blood Urea Nitrogen 29 mg/dl Creatinine 6.04 mg/dl Est Creatinine Clear Calc Drug Dose 7.8 ml/min Estimated GFR () 7.0 Estimated GFR (Non- 6.0 BUN/Creatinine Ratio 4.8 Random Glucose 78 mg/dl Calcium Level 7.8 mg/dl Phosphorus Level 3.3 mg/dl Albumin 2.3 gm/dl Assessment and Plan 83yo female: 1. b/l pneumonia - 2nd to MRSA - completed 14 days of vanco. Continue vanco for MRSA. Plan 10-14 days of Rx. Patient had no fevers today, nor overnight Last fever noted on the 02 of April Patient has a trach due likely to her weight, large neck and cushinoid features causing an obstruction. Patient currently on high flow oxygen. Patient just had a change in her trach which is now uncuff. Size remains to be 6. Vanco level was toxic at end of treatment. Vanco has been held since level became toxic. 2. new-onset a. fib - converted to NSR earlier this stay with amiodarone. Resumed amiodarone by mouth along w/ eliquis. 3. ileus - ongoing. Patient pulled out her NG tube 2 nights ago. Fortunately she has not had nausea/emesis. With that said she has had no bowel movement. Will CONTINUE reglan IV q6h. Allow diet as desired/tolerated. Patient continue to have small bowel movement. Will reorder lactulose. 4. acute/chronic hypoxic respiratory failure - s/p trach placement. Acute component 2nd to #1. 5. dysphagia - patient refusing permanent feeding tube. She pulled out her NG tube 2 nights ago as well. Speech re-evaluated her 03/30/18 w/ bedside swallow and patient placed back on thickened liquids. Tolerating such thus far. Allow mech soft diabetic diet as desired/tolerated. Patient today tolerated soft diet. 6. protein calorie malnutrition, moderate-severe degree - again she is refusing permanent feeding tube. Ongoing issue. Doubt it will improve. 7. COPD with mild exacerbation - wean to prednisone 20mg daily in the AM. will not recommend decreasing to 10 mg given the risk that she may become hypotensive from adrenal insufficiency. 8. H/O DVTs - noted; resumed eliquis. 9. Acute on CKD stage 3 - creatinine has increased to above 5. Vanco levels are toxic. Patient also has not made sufficent urine. Consulted neprho Likely ATN, due to her lab tests. Will hold off IVF now UO is low. The culprit for now believe to be vancomycin. 10. Hypothyroidism - compensated; cont synthroid. 11. T2DM - controlled. 12. chronic diastolic CHF - compensated. In fact she has lost weight in the hospital. 13. right-sided elevated Hemidiaphragm - S/P Plication in the past. 14. depression - resumed SSRI. Consider titration and/or addition of additional medication. 15. HTN - controlled 16. FEN -restart IVF. Diet if desired. 17. DVT proph - eliquis. 18. RLS - requip. Had discussion with daughter. She understands patient is not improving but would like to continue to treat and not have palliative care. D/W daughter that patient is not a good candidate for HD however she would like to entertain the idea. Will discuss with Nephro tomorrow. Continued [facility] stay due to: fever, inadequate po fluid intake, inadequate oral pain control, voiding difficulties, ambulation difficulties, multiple IV medications needed, other (ileus, pneumonia, etc) Discharge planning: uncertain
[2018-04-08] MEDS: NYSTATIN POWDER 15GM BTL EXT SCH ×3 (07:56→19:31)
[2018-04-08] MEDS: GABAPENTIN 300 MG CAP PO SCH ×2 (07:57→21:26)
[2018-04-08] MEDS: AMIODARONE 200 MG TAB PO SCH (07:57)
[2018-04-08] MEDS: SUCRALFATE 1 GM/10 ML UDC PO SCH ×4 (07:58→21:25)
[2018-04-08] MEDS: CITALOPRAM 20 MG TAB PO SCH (07:58)
[2018-04-08] MEDS: APIXABAN 2.5 MG TAB PO SCH ×2 (07:58→21:26)
[2018-04-08] MEDS: BOOST PLUS VANILLA OR BOOST GLUCOSE CONTROL STRAWBERRY PO SCH ×4 (07:59→20:00)
[2018-04-08] MEDS: LANSOPRAZOLE SOLUTAB 30 MG NG SCH (07:59)
[2018-04-08] MEDS: INSULIN ASPART 100 UNITS/ML 3 ML PEN SC SCH ×4 (09:17→21:00)
--- NOTE | 2018-04-08 09:22 | ENT CONSULTATION ---
DATE OF ADMISSION: 03/15/2018 SUBJECTIVE: The patient is sleeping. OBJECTIVE: The trach site looks clean. IMPRESSION: Status post tracheostomy and status post trach change. RECOMMENDATIONS: Continue trach care.
--- NOTE | 2018-04-08 13:12 | Nephrology Progress Note ---
Nephrology Progress Note Date of Service Apr 08, 2018. Chief Complaint MANJULA Subjective Karen was very somnolent yesterday. She opened eyes to questions but did not answer questions. She did deny pain. No fevers or chills. Dr. Nelson and the patient's daughter had a conversation with Karen at the bedside yesterday. I had an extensive conversation with Grisel this morning as well. I discussed the plan of care with Dr. Nelson this morning as well. Karen reportedly did respond "yes" when asked about whether she would consider dialysis yesterday with Dr. Nelson and her daughter. Grisel also expressed to me today that she wants to do everything she can to keep her mother alive. She notes that her mother has overcome the odds and made remarkable recovery in the past. Review of Systems A complete review of systems was performed. Pertinent positives are noted above. All other systems are negative. Vital Signs Last 8 Hrs Date Time Temp Pulse Resp B/P (MAP) Pulse Ox O2 Delivery O2 Flow Rate FiO2 04/08/18 08:00 Trach Collar 28 04/08/18 07:17 36.6 72 20 145/80 (101) 99 Trach Collar 2.0 28 04/08/18 07:15 80 20 96 Trach Collar 28 Last Recorded Weight Weight (Kilograms): 94.200 Physical Exam General Appearance: no apparent distress, + obese Head: normocephalic, atraumatic Eyes: sclerae normal ENT: pharynx normal, + pertinent finding (oral mucosa dry) Neck: supple Respiratory/Chest: + decreased breath sounds, + rales (basilar) Cardiovascular: regular rate, rhythm Abdomen/GI: non tender, soft Genitourinary - Female: + pertinent finding (Mahoney draining yellow urine) Extremities/Musculoskelatal: + pertinent finding (dependent edema) Neurologic/Psych: + depressed affect, + pertinent finding (lethargic, no tremor ) Family History Diabetes mellitus FH: cancer FH: gallbladder disease FH: heart disease FH: lung disease Hypertension Kidney disease or stones Social History Smoking Status: Never smoker Drug Use: none Marital Status: Housing Status: lives with family Occupation: retired Laboratory Results Past 24 Hours 04/08/18 05:23 Red Blood Count 3.32, Mean Corpuscular Volume 96.4, Mean Corpuscular Hemoglobin 29.5, Mean Corpuscular Hemoglobin Concent 30.6, Mean Platelet Volume 10.7, Neutrophils (%) (Auto) 69.2, Lymphocytes (%) (Auto) 16.9, Monocytes (%) (Auto) 11.6, Eosinophils (%) (Auto) 0.3, Basophils (%) (Auto) 0.0, Neutrophils # (Auto ) 2.75, Lymphocytes # (Auto) 0.67, Monocytes # (Auto) 0.46, Eosinophils # (Auto ) 0.01, Basophils # (Auto) 0.00 04/08/18 05:23 Test 04/07/18 16:23 04/07/18 20:29 04/08/18 05:23 04/08/18 07:33 Bedside Glucose 147 mg/dl (70-90) 172 mg/dl (70-90) 78 mg/dl (70-90) White Blood Count 3.97 K/uL (4.8-10.8) Red Blood Count 3.32 M/uL (4.2-5.4) Hemoglobin 9.8 g/dL (12.0-16.0) Hematocrit 32.0 % (37-47) Mean Corpuscular Volume 96.4 fL (80-100) Mean Corpuscular Hemoglobin 29.5 pg (25-34) Mean Corpuscular Hemoglobin Concent 30.6 g/dl (32-36) Platelet Count 210 K/uL (130-400) Mean Platelet Volume 10.7 fL (7.4-10.4) Neutrophils (%) (Auto) 69.2 % Lymphocytes (%) (Auto) 16.9 % Monocytes (%) (Auto) 11.6 % Eosinophils (%) (Auto) 0.3 % Basophils (%) (Auto) 0.0 % Neutrophils # (Auto) 2.75 K/uL (1.4-6.5) Lymphocytes # (Auto) 0.67 K/uL (1.2-3.4) Monocytes # (Auto) 0.46 K/uL (0.11-0.59) Eosinophils # (Auto) 0.01 K/uL (0-0.5) Basophils # (Auto) 0.00 K/uL (0-0.2) RDW Standard Deviation 56.8 fL (36.4-46.3) RDW Coefficient of Variation 16.1 % (11.5-14.5) Immature Granulocyte % (Auto) 2.0 % Immature Granulocyte # (Auto) 0.08 K/uL (0.00-0.02) Anion Gap 9.0 mmol/L (3-11) Est Creatinine Clear Calc Drug Dose 7.8 ml/min Estimated GFR () 7.0 Estimated GFR (Non- 6.0 BUN/Creatinine Ratio 4.8 (10-20) Calcium Level 7.8 mg/dl (8.5-10.1) Phosphorus Level 3.3 mg/dl (2.5-4.9) Albumin 2.3 gm/dl (3.4-5.0) Test 04/08/18 11:26 Bedside Glucose 103 mg/dl (70-90) Allergies Coded Allergies: Adhesives (Verified Allergy, Severe, TAPE-REDNESS, BLISTERS, 03/19/18) Pneumococcal Vaccine (Verified Allergy, Severe, SHORTNESS OF BREATH, ) Metronidazole (Verified Allergy, Intermediate, skin rash, 03/19/18) allergic to generic form Phenazopyridine (Verified Allergy, Intermediate, abdominal pain/rash, ) Erythromycin (Verified Allergy, Mild, RASH, 03/19/18) Salicylates (Verified Allergy, Unknown, pt states rash with ASA 325 but not ASA 81mg, 03/19/18) Sulfa Antibiotics (Verified Allergy, Unknown, ON MED LIST, 03/19/18) Tetracycline (Verified Allergy, Unknown, RASH, 03/19/18) Morphine (Verified Adverse Reaction, Intermediate, urinary retention - oral morphine only, 03/19/18) Diltiazem (Verified Adverse Reaction, Mild, FLUID RETENTION, 03/19/18) Metoclopramide (Verified Adverse Reaction, Mild, TREMORS, 03/19/18) Bacitracin (Verified Adverse Reaction, Unknown, "MAKES IT WORSE"-OK IF NOT OTC MEDICATION, 03/19/18) OKAY IF NOT OVER THE COUNTER MEDICATION Medications Current Inpatient Medications Medications (Trade) Dose Ordered Sig/Natasha Route Start Time Stop Time Status Last Admin Dose Admin Acetaminophen (Tylenol Tab) 650 mg Q4H PRN PO 03/15/18 18:30 04/14/18 18:29 Future hold 04/07/18 19:53 650 MG Al Hydrox/Mg Hydrox/Simethicone (Maalox Max Susp) 15 ml Q4H PRN PO 03/15/18 18:30 04/14/18 18:29 Magnesium Hydroxide (Milk Of Magnesia Susp) 30 ml Q12H PRN PO 03/15/18 18:30 04/14/18 18:29 Ondansetron HCl (Zofran Inj) 4 mg Q6H PRN IV 03/15/18 18:30 04/14/18 18:29 Albuterol Sulfate (Ventolin 0.083% 2.5MG/3ML Neb) 2.5 mg Q4H PRN INH 03/15/18 18:30 04/14/18 18:29 Albuterol/ Ipratropium (Duoneb) 3 ml Q6R NEB 03/15/18 21:00 04/14/18 20:59 04/08/18 07:15 3 ML Citalopram Hydrobromide (celeXA TAB) 30 mg DAILY PO 03/16/18 09:00 04/15/18 08:59 Future hold 04/08/18 07:58 30 MG Diclofenac Sodium (Voltaren 1% Top Gel) 1 appln QID PRN EXT 03/15/18 19:30 04/14/18 19:29 04/06/18 23:49 1 APPLN Gabapentin (Neurontin Cap) 300 mg BID PO 03/15/18 21:00 04/14/18 20:59 Future hold 04/08/18 07:57 300 MG Levothyroxine Sodium (Synthroid Tab) 100 mcg DAILYBB PO 03/16/18 06:00 04/15/18 06:59 Future hold 04/08/18 06:18 100 MCG Nystatin (Mycostatin Powder) 1 appln TID EXT 03/15/18 21:00 04/14/18 20:59 04/08/18 07:56 1 APPLN Ropinirole HCl (Requip Tab) 0.5 mg HS PO 03/15/18 21:00 04/14/18 20:59 Future hold 04/07/18 19:28 0.5 MG Sucralfate (Carafate Susp) 1 gm QID PO 03/15/18 21:00 04/14/18 20:59 Future hold 04/08/18 11:32 1 GM Miscellaneous Information (Order Awaiting Action) 1 ea QS N/A 03/16/18 00:00 04/15/18 00:00 03/18/18 18:49 1 EA Glucose (Glucose 40% Gel) 15-30 GRAMS 15 GRAMS... UD PRN PO 03/15/18 19:00 04/14/18 18:59 Glucose (Glucose Chew Tab) 4-8 Tablets 4 Tabl... UD PRN PO 03/15/18 19:00 04/14/18 18:59 Dextrose (Dextrose 50% 50ML Syringe) 25-50ML 25ML FOR ... UD PRN IV 03/15/18 19:00 04/14/18 18:59 Glucagon (Glucagon Inj) 1 mg UD PRN SQ 03/15/18 19:00 04/14/18 18:59 Carbohydrates (Carbohydrates For Hypoglycemia) 15-30 GRAMS 15 grams if BSG 54-69... UD PRN PO 03/15/18 19:00 04/14/18 18:59 Heparin Sodium (Porcine) (Heparin 10 Unit/ ml 5 ml Flush) 5 ml PRN PRN FLUSH 03/20/18 00:30 04/19/18 00:29 04/08/18 11:32 5 ML Amiodarone HCl (Cordarone Tab) 200 mg DAILY PO 03/29/18 09:00 04/28/18 08:59 04/08/18 07:57 200 MG Non-Formulary Medication (Non-Formulary Patient'S Own Med) 1 ea DAILY PO 03/22/18 09:00 04/21/18 08:59 04/04/18 08:05 1 EA Senna (Senokot Tab) 17.2 mg HS PO 03/24/18 21:00 04/23/18 20:59 Future hold 04/07/18 19:29 17.2 MG Acetaminophen 100 ml @ 400 mls/hr Q8H PRN IV 03/25/18 15:45 04/24/18 15:44 04/06/18 15:42 400 MLS/HR Lorazepam (Ativan Inj) 0.5 mg Q6H PRN IV 03/27/18 18:15 04/26/18 18:14 03/31/18 03:54 0.5 MG Lorazepam 0.5 mg/ Syringe 1 ml @ 1 mls/min Q6H PRN IV 03/27/18 18:45 04/26/18 18:44 Metoclopramide HCl (Reglan Inj) 5 mg Q6H IV. 03/30/18 12:00 04/29/18 11:59 04/08/18 11:32 5 MG Insulin Aspart (novoLOG ASPART) SLIDING SCALE If C... ACHS SC 04/01/18 07:00 05/01/18 06:59 04/07/18 17:56 1 UNITS Prednisone (PredniSONE TAB) 20 mg QAM PO 04/02/18 09:00 05/01/18 08:59 04/08/18 07:57 20 MG Apixaban (Eliquis Tab) 2.5 mg BID PO 04/04/18 20:00 05/04/18 20:59 04/08/18 07:58 2.5 MG Enteral Nutritional Formula (Boost Plus Vanilla) 0.5 can QID PO 04/05/18 17:00 05/05/18 16:59 04/07/18 12:36 0.5 CAN Lansoprazole (Prevacid Solutab) 30 mg DAILY NG 04/07/18 09:30 05/07/18 09:29 04/08/18 07:59 30 MG Midodrine (Proamatine Tab) 2.5 mg TID@,,17 PRN PO 04/07/18 16:45 05/07/18 16:44 Impression (1) MANJULA (acute kidney injury) Karen Philip is a chronically ill and frail 83-year-old female with multiple comorbid medical conditions. 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 Karen is now being managed with tracheostomy and a chronic oxygen requirement. She has developed oliguric MANJULA consistent with ATN while being treated for multifocal MRSA pneumonia. MANJULA is consistent with ATN, possibly secondary to vancomycin nephrotoxicity. Vancomycin has been discontinued. Renal US did not show evidence of obstruction. UA is bland with acellular microscopy. Urine sodium excretion consistent with tubular injury. Recommendations -- Repeat metabolic profile this afternoon -- Encourage oral fluids and nutrition -- Hold IV free water at this time pending monitoring of free water deficit -- No current indication for dialysis; I explained to the patient's daughter again today that dialysis is likely to be complicated given multiple medical comorbidities -- Due to debility and chronic lung disease, patient is unfortunately a poor long-term candidate for benefits from dialysis -- Document I/O's
[2018-04-08 17:43] LABS: CALCIUM 7.7 mg/dl (8.5-10.1); CREATININE 6.27 mg/dl (0.60-1.20); POTASSIUM 4.7 mmol/L (3.5-5.1)
[2018-04-08] MEDS: ACETAMINOPHEN IV 1000MG/100ML IV PRN (19:36)
[2018-04-08] MEDS: SENNA 8.6 MG TAB PO SCH (21:27)
[2018-04-08] MEDS: ROPINIROLE HCL 0.25 MG TAB PO SCH (21:27)
--- NOTE | 2018-04-08 23:23 | Progress Note ---
Subjective Date of Service: Apr 08, 2018. Subjective Pt evaluation today including: conversation w/ patient, physical exam Patient is more lethargic today. Does not provide any complaints today. Problem List Medical Problems: (1) Cervical strain Status: Acute (2) Contusion of multiple sites Status: Acute (3) COPD exacerbation Status: Acute (4) Fall Status: Acute (5) Fall from chair, initial encounter Status: Acute (6) Fatigue Status: Acute (7) Head injury Status: Acute (8) Head injury Status: Acute (9) Hip pain Status: Acute (10) Hypocalcemia Status: Acute (11) Hypoxia Status: Acute (12) Hypoxia Status: Acute (13) Lower extremity edema Status: Acute (14) PNA (pneumonia) Status: Acute (15) Pneumonia Status: Acute (16) Pneumonitis Status: Acute (17) Reactive airway disease Status: Acute (18) Right flank pain Status: Acute (19) Sepsis Status: Acute (20) Sepsis Status: Acute (21) Syncope Status: Acute (22) Traumatic compression fracture of third thoracic vertebra Status: Acute (23) Vaginal yeast infection Status: Acute (24) Weakness Status: Acute (25) Yeast vaginitis Status: Acute Review of Systems unable to obtain ROS Objective Vital Signs Date Time Temp Pulse Resp B/P (MAP) Pulse Ox O2 Delivery O2 Flow Rate FiO2 04/08/18 20:03 84 18 97 Trach Collar 04/08/18 16:00 94 Trach Collar 2.0 04/08/18 14:55 37.0 80 20 138/74 (95) 94 04/08/18 14:37 76 20 95 Trach Collar 04/08/18 08:00 Trach Collar 04/08/18 07:17 36.6 72 20 145/80 (101) 99 Trach Collar 2.0 04/08/18 07:15 80 20 96 Trach Collar 28 04/08/18 01:54 72 20 97 Trach Collar 28 04/07/18 23:29 37.1 72 20 150/75 (100) 99 Trach Collar 8.0 Physical Exam Comments: General Appearance: SOMNOLENT, + obese, + pertinent finding (cushingnoid facies ) ENT: pharynx normal (no thrush, MMM) Neck: no JVD, + pertinent finding (trach in place; serosanguineous secretions noted today) Respiratory/Chest: + decreased breath sounds (bases), Cardiovascular: regular rate, rhythm, no gallop Abdomen: no organomegaly, + decreased distention today, + tenderness Extremities: no pedal edema Neurologic/Psychiatric: awakens with verbal stimuli, but quickly goes back to sleep. Skin: + pertinent finding (PICC line, RUE - clean ; ecchymoses on legs, arms ) Laboratory Results Last 24 Hours Test 04/08/18 05:23 04/08/18 07:33 04/08/18 11:26 04/08/18 16:40 White Blood Count 3.97 K/uL Red Blood Count 3.32 M/uL Hemoglobin 9.8 g/dL Hematocrit 32.0 % Mean Corpuscular Volume 96.4 fL Mean Corpuscular Hemoglobin 29.5 pg Mean Corpuscular Hemoglobin Concent 30.6 g/dl Platelet Count 210 K/uL Mean Platelet Volume 10.7 fL Neutrophils (%) (Auto) 69.2 % Lymphocytes (%) (Auto) 16.9 % Monocytes (%) (Auto) 11.6 % Eosinophils (%) (Auto) 0.3 % Basophils (%) (Auto) 0.0 % Neutrophils # (Auto) 2.75 K/uL Lymphocytes # (Auto) 0.67 K/uL Monocytes # (Auto) 0.46 K/uL Eosinophils # (Auto) 0.01 K/uL Basophils # (Auto) 0.00 K/uL RDW Standard Deviation 56.8 fL RDW Coefficient of Variation 16.1 % Immature Granulocyte % (Auto) 2.0 % Immature Granulocyte # (Auto) 0.08 K/uL Sodium Level 146 mmol/L Potassium Level 4.3 mmol/L Chloride Level 110 mmol/L Carbon Dioxide Level 26 mmol/L Anion Gap 9.0 mmol/L Blood Urea Nitrogen 29 mg/dl Creatinine 6.04 mg/dl Est Creatinine Clear Calc Drug Dose 7.8 ml/min Estimated GFR () 7.0 Estimated GFR (Non- 6.0 BUN/Creatinine Ratio 4.8 Random Glucose 78 mg/dl Calcium Level 7.8 mg/dl Phosphorus Level 3.3 mg/dl Albumin 2.3 gm/dl Bedside Glucose 78 mg/dl 103 mg/dl 143 mg/dl Test 04/08/18 16:57 04/08/18 20:17 Sodium Level 144 mmol/L Potassium Level 4.7 mmol/L Chloride Level 110 mmol/L Carbon Dioxide Level 27 mmol/L Anion Gap 7.0 mmol/L Blood Urea Nitrogen 32 mg/dl Creatinine 6.27 mg/dl Est Creatinine Clear Calc Drug Dose 7.5 ml/min Estimated GFR () 6.6 Estimated GFR (Non- 5.7 BUN/Creatinine Ratio 5.2 Random Glucose 128 mg/dl Calcium Level 7.7 mg/dl Bedside Glucose 116 mg/dl Assessment and Plan 83yo female: 1. b/l pneumonia - 2nd to MRSA - completed 14 days of vanco. Continue vanco for MRSA. Plan 10-14 days of Rx. Patient had no fevers today, nor overnight Last fever noted on the 02 of April Patient has a trach due likely to her weight, large neck and cushinoid features causing an obstruction. Patient currently on high flow oxygen. Patient just had a change in her trach which is now uncuff. Size remains to be 6. Vanco level was toxic at end of treatment. Vanco has been held since level became toxic. 2. new-onset a. fib - converted to NSR earlier this stay with amiodarone. Resumed amiodarone by mouth along w/ eliquis. 3. ileus - ongoing. Patient pulled out her NG tube 2 nights ago. Fortunately she has not had nausea/emesis. With that said she has had no bowel movement. Will CONTINUE reglan IV q6h. Allow diet as desired/tolerated. Patient continue to have small bowel movements daily. 4. acute/chronic hypoxic respiratory failure - s/p trach placement. Acute component 2nd to #1. 5. dysphagia - patient refusing permanent feeding tube. She pulled out her NG tube earlier this past week. Speech re-evaluated her 03/30/18 w/ bedside swallow and patient placed back on thickened liquids. Tolerating such thus far. Allow mech soft diabetic diet as desired/tolerated. Patient today tolerated soft diet. 6. protein calorie malnutrition, moderate-severe degree - again she is refusing permanent feeding tube. Ongoing issue. Doubt it will improve. 7. COPD with mild exacerbation - wean to prednisone 20mg daily in the AM. will not recommend decreasing to 10 mg given the risk that she may become hypotensive from adrenal insufficiency. 8. H/O DVTs - noted; resumed eliquis. 9. Acute on CKD stage 3 - creatinine has increased to above 6. Vanco levels are toxic. Patient also has not made sufficient urine. Consulted janetho Likely ATN, due to her lab tests. Will hold off IVF now UO is low now 400 ml in past 24 hours. The culprit for now is believed to be vancomycin. Appears creatinine is now plateauing. 10. Hypothyroidism - compensated; cont synthroid. 11. T2DM - controlled. 12. chronic diastolic CHF - compensated. In fact she has lost weight in the hospital. 13. right-sided elevated Hemidiaphragm - S/P Plication in the past. 14. depression - resumed SSRI. Consider titration and/or addition of additional medication. 15. HTN - controlled 16. FEN -restart IVF. Diet if desired. 17. DVT proph - eliquis. 18. RLS - requip. Patient remains to have poor prognosis given the fact that she has been in bed for her entire hospitalization. Likely is becoming weaker, patient has multiple comorbidites and is now having signs of severe renal failure. Nephrology does not believe patient is a good candidate for HD. This was discussed with daughter. Poor prognosis Continued [facility] stay due to: fever, inadequate po fluid intake, inadequate oral pain control, voiding difficulties, ambulation difficulties, multiple IV medications needed, other (ileus, pneumonia, etc) Discharge planning: uncertain
[2018-04-09] VITALS (8 sets, daily range): BP systolic 113–167; BP diastolic 68–86; PULSE 63–88; TEMP 36.8–37.1; O2SAT 95–100
[2018-04-09] MEDS: METOCLOPRAMIDE HCL INJ 5 MG/ML 2 ML VIAL IV. SCH ×5 (00:30→23:22)
[2018-04-09] MEDS: ALBUT/IPRATROP 3MG/0.5MG NEB 3 ML VIAL NEB SCH ×4 (02:05→20:45)
[2018-04-09] MEDS: LEVOTHYROXINE 100 MCG TAB PO SCH (06:43)
[2018-04-09 07:11] LABS: CALCIUM 7.7 mg/dl (8.5-10.1); CREATININE 6.18 mg/dl (0.60-1.20); PHOSPHORUS 3.8 mg/dl (2.5-4.9); POTASSIUM 4.1 mmol/L (3.5-5.1)
--- NOTE | 2018-04-09 07:57 | Anesthesiology Progress Note ---
Anesthesia Post Op Note Date & Time Apr 09, 2018 at 07:55 Vital Signs Vital Signs Past 12 Hours Date Time Temp Pulse Resp B/P (MAP) Pulse Ox O2 Delivery O2 Flow Rate FiO2 04/09/18 07:45 36.9 72 18 155/86 (109) 96 Trach Collar 8.0 28 04/09/18 07:33 67 16 95 Trach Collar 28 04/09/18 02:05 88 16 97 Trach Collar 28 04/08/18 23:46 36.5 63 20 139/69 (92) 97 Trach Collar 04/08/18 22:00 Trach Collar 28 04/08/18 20:03 84 18 97 Trach Collar 28 Notes Mental Status: alert / awake / arousable, participated in evaluation Pt Amnestic to Procedure: Yes Nausea / Vomiting: adequately controlled Pain: adequately controlled Airway Patency, RR, SpO2: stable & adequate BP & HR: stable & adequate Hydration State: stable & adequate Anesthetic Complications: no major complications apparent Patient is resting calmly. Discussed with RN patients post-op course. No apparent complications from anesthesia.
--- NOTE | 2018-04-09 08:53 | PULMONARY PROGRESS NOTE ---
DATE: 04/09/2018 TIME: 8:30 a.m. SUBJECTIVE: The patient is quite lethargic. She did not open her eyes. She did follow some commands. She nods her head yes when I asked her if she was short of breath. She also nods as yes to if she was having pain. I spoke with her registered nurse who indicated that there were no problems overnight as far as she knew. OBJECTIVE: GENERAL: The patient is lethargic. VITAL SIGNS: Temperature 36.9. There have been no recent fevers. Heart rate is 72 per minute. The rhythm is regular. Blood pressure 155/86. HEENT: Trach site remains intact. No secretions were noted in the trach. The patient remains cushingoid in appearance. LUNGS: Auscultation of the lung madden reveals mild rhonchi bilaterally. There was no respiratory distress. She was breathing easily with a rate of 18 breaths per minute. Saturation was 96% on a 28% trach collar. ABDOMEN: The abdomen is soft. Bowel sounds were normal. There was no apparent tenderness to palpation. EXTREMITIES: The patient's lower extremities felt cool below the knees. Trace edema was noted. She moves very little. LABORATORY DATA: Electrolytes today show sodium 145, potassium 4.1, chloride 110, bicarbonate 26. BUN is 35 with a creatinine of 6.18. Creatinine yesterday afternoon was 6.27. ASSESSMENT: 1. Gruky-ch-szveuuz respiratory failure with hypoxic and hypercarbia. 2. Chronic obstructive pulmonary disease. 3. Cor pulmonale. 4. Obesity hypoventilation syndrome. 5. Obstructive sleep apnea. 6. Status post tracheostomy. 7. Acute renal failure. COMMENTS AND RECOMMENDATIONS: The patient's respiratory status seems stable. She has more than adequate oxygenation with relatively small quantities of oxygen. She is not having any respiratory distress. She has mild rhonchi. I suspect some of her lethargy may be related to the renal failure superimposed upon her underlying chronic disease and numerous medications which could contribute to lethargy. I have no specific suggestions at present from a pulmonary perspective.
[2018-04-09] MEDS: SUCRALFATE 1 GM/10 ML UDC PO SCH ×4 (09:14→20:38)
[2018-04-09] MEDS: APIXABAN 2.5 MG TAB PO SCH ×2 (09:15→20:39)
[2018-04-09] MEDS: GABAPENTIN 300 MG CAP PO SCH ×2 (09:15→20:38)
[2018-04-09] MEDS: LANSOPRAZOLE SOLUTAB 30 MG NG SCH (09:15)
[2018-04-09] MEDS: AMIODARONE 200 MG TAB PO SCH (09:16)
[2018-04-09] MEDS: CITALOPRAM 20 MG TAB PO SCH (09:16)
[2018-04-09] MEDS: BOOST PLUS VANILLA OR BOOST GLUCOSE CONTROL STRAWBERRY PO SCH ×4 (09:16→20:36)
[2018-04-09] MEDS: INSULIN ASPART 100 UNITS/ML 3 ML PEN SC SCH ×4 (09:17→20:14)
[2018-04-09] MEDS: NYSTATIN POWDER 15GM BTL EXT SCH ×3 (09:18→20:37)
--- NOTE | 2018-04-09 11:45 | Nephrology Progress Note ---
Nephrology Progress Note Date of Service Apr 09, 2018. Chief Complaint MANJULA Subjective Ms. Philip was seen & examined in her hospital room this morning. At the time of my evaluation she was awake and alert. She appeared to be breathing comfortably via tracheostomy. Ms. Philip shakes her head "yes or no" to questions. Review of Systems Constitutional: No fever Cardiovascular: No chest pain Respiratory: No dyspnea at rest Abdomen: No pain, No nausea, No vomiting A complete review of systems was performed. Pertinent positives are noted above. All other systems are negative. Vital Signs Last 8 Hrs Date Time Temp Pulse Resp B/P (MAP) Pulse Ox O2 Delivery O2 Flow Rate FiO2 04/09/18 09:00 96 Trach Collar 8.0 04/09/18 07:45 36.9 72 18 155/86 (109) 96 Trach Collar 8.0 28 04/09/18 07:33 67 16 95 Trach Collar 28 Last Recorded Weight Weight (Kilograms): 94.500 Physical Exam General Appearance: no apparent distress Head: atraumatic Eyes: PERRL, EOMI Neck: no adenopathy, + pertinent finding (tracheostomy in place) Respiratory/Chest: lungs clear (anteriorly) Cardiovascular: regular rate, rhythm Abdomen/GI: normal bowel sounds, non tender, soft Genitourinary - Female: + pertinent finding (christian catheter in place draining clear yellow urine) Extremities/Musculoskelatal: no calf tenderness Neurologic/Psych: alert Family History Diabetes mellitus FH: cancer FH: gallbladder disease FH: heart disease FH: lung disease Hypertension Kidney disease or stones Social History Smoking Status: Never smoker Drug Use: none Marital Status: Housing Status: lives with family Occupation: retired Laboratory Results Past 24 Hours 04/08/18 16:57 04/09/18 05:48 Test 04/08/18 16:40 04/08/18 16:57 04/08/18 20:17 04/09/18 05:48 Bedside Glucose 143 mg/dl (70-90) 116 mg/dl (70-90) Anion Gap 7.0 mmol/L (3-11) 9.0 mmol/L (3-11) Est Creatinine Clear Calc Drug Dose 7.5 ml/min 7.6 ml/min Estimated GFR () 6.6 6.8 Estimated GFR (Non- 5.7 5.8 BUN/Creatinine Ratio 5.2 (10-20) 5.7 (10-20) Calcium Level 7.7 mg/dl (8.5-10.1) 7.7 mg/dl (8.5-10.1) Phosphorus Level 3.8 mg/dl (2.5-4.9) Albumin 2.0 gm/dl (3.4-5.0) Test 04/09/18 07:31 Bedside Glucose 80 mg/dl (70-90) Allergies Coded Allergies: Adhesives (Verified Allergy, Severe, TAPE-REDNESS, BLISTERS, 03/19/18) Pneumococcal Vaccine (Verified Allergy, Severe, SHORTNESS OF BREATH, ) Metronidazole (Verified Allergy, Intermediate, skin rash, 03/19/18) allergic to generic form Phenazopyridine (Verified Allergy, Intermediate, abdominal pain/rash, ) Erythromycin (Verified Allergy, Mild, RASH, 03/19/18) Salicylates (Verified Allergy, Unknown, pt states rash with ASA 325 but not ASA 81mg, 03/19/18) Sulfa Antibiotics (Verified Allergy, Unknown, ON MED LIST, 03/19/18) Tetracycline (Verified Allergy, Unknown, RASH, 03/19/18) Morphine (Verified Adverse Reaction, Intermediate, urinary retention - oral morphine only, 03/19/18) Diltiazem (Verified Adverse Reaction, Mild, FLUID RETENTION, 03/19/18) Metoclopramide (Verified Adverse Reaction, Mild, TREMORS, 03/19/18) Bacitracin (Verified Adverse Reaction, Unknown, "MAKES IT WORSE"-OK IF NOT OTC MEDICATION, 03/19/18) OKAY IF NOT OVER THE COUNTER MEDICATION Medications Current Inpatient Medications Medications (Trade) Dose Ordered Sig/Natasha Route Start Time Stop Time Status Last Admin Dose Admin Acetaminophen (Tylenol Tab) 650 mg Q4H PRN PO 03/15/18 18:30 04/14/18 18:29 Future hold 04/07/18 19:53 650 MG Al Hydrox/Mg Hydrox/Simethicone (Maalox Max Susp) 15 ml Q4H PRN PO 03/15/18 18:30 04/14/18 18:29 Magnesium Hydroxide (Milk Of Magnesia Susp) 30 ml Q12H PRN PO 03/15/18 18:30 04/14/18 18:29 Ondansetron HCl (Zofran Inj) 4 mg Q6H PRN IV 03/15/18 18:30 04/14/18 18:29 Albuterol Sulfate (Ventolin 0.083% 2.5MG/3ML Neb) 2.5 mg Q4H PRN INH 03/15/18 18:30 04/14/18 18:29 Albuterol/ Ipratropium (Duoneb) 3 ml Q6R NEB 03/15/18 21:00 04/14/18 20:59 04/09/18 07:32 3 ML Citalopram Hydrobromide (celeXA TAB) 30 mg DAILY PO 03/16/18 09:00 04/15/18 08:59 Future hold 04/09/18 09:16 30 MG Diclofenac Sodium (Voltaren 1% Top Gel) 1 appln QID PRN EXT 03/15/18 19:30 04/14/18 19:29 04/06/18 23:49 1 APPLN Gabapentin (Neurontin Cap) 300 mg BID PO 03/15/18 21:00 04/14/18 20:59 Future hold 04/09/18 09:15 300 MG Levothyroxine Sodium (Synthroid Tab) 100 mcg DAILYBB PO 03/16/18 06:00 04/15/18 06:59 Future hold 04/09/18 06:43 100 MCG Nystatin (Mycostatin Powder) 1 appln TID EXT 03/15/18 21:00 04/14/18 20:59 04/09/18 09:18 1 APPLN Ropinirole HCl (Requip Tab) 0.5 mg HS PO 03/15/18 21:00 04/14/18 20:59 Future hold 04/08/18 21:27 0.5 MG Sucralfate (Carafate Susp) 1 gm QID PO 03/15/18 21:00 04/14/18 20:59 Future hold 04/09/18 09:14 1 GM Miscellaneous Information (Order Awaiting Action) 1 ea QS N/A 03/16/18 00:00 04/15/18 00:00 03/18/18 18:49 1 EA Glucose (Glucose 40% Gel) 15-30 GRAMS 15 GRAMS... UD PRN PO 03/15/18 19:00 04/14/18 18:59 Glucose (Glucose Chew Tab) 4-8 Tablets 4 Tabl... UD PRN PO 03/15/18 19:00 04/14/18 18:59 Dextrose (Dextrose 50% 50ML Syringe) 25-50ML 25ML FOR ... UD PRN IV 03/15/18 19:00 04/14/18 18:59 Glucagon (Glucagon Inj) 1 mg UD PRN SQ 03/15/18 19:00 04/14/18 18:59 Carbohydrates (Carbohydrates For Hypoglycemia) 15-30 GRAMS 15 grams if BSG 54-69... UD PRN PO 03/15/18 19:00 04/14/18 18:59 Heparin Sodium (Porcine) (Heparin 10 Unit/ ml 5 ml Flush) 5 ml PRN PRN FLUSH 03/20/18 00:30 04/19/18 00:29 04/09/18 06:06 5 ML Amiodarone HCl (Cordarone Tab) 200 mg DAILY PO 03/29/18 09:00 04/28/18 08:59 04/09/18 09:16 200 MG Non-Formulary Medication (Non-Formulary Patient'S Own Med) 1 ea DAILY PO 03/22/18 09:00 04/21/18 08:59 04/04/18 08:05 1 EA Senna (Senokot Tab) 17.2 mg HS PO 03/24/18 21:00 04/23/18 20:59 Future hold 04/08/18 21:27 17.2 MG Acetaminophen 100 ml @ 400 mls/hr Q8H PRN IV 03/25/18 15:45 04/24/18 15:44 04/08/18 19:36 400 MLS/HR Lorazepam (Ativan Inj) 0.5 mg Q6H PRN IV 03/27/18 18:15 04/26/18 18:14 03/31/18 03:54 0.5 MG Lorazepam 0.5 mg/ Syringe 1 ml @ 1 mls/min Q6H PRN IV 03/27/18 18:45 04/26/18 18:44 Metoclopramide HCl (Reglan Inj) 5 mg Q6H IV. 03/30/18 12:00 04/29/18 11:59 04/09/18 06:06 5 MG Insulin Aspart (novoLOG ASPART) SLIDING SCALE If C... ACHS SC 04/01/18 07:00 05/01/18 06:59 04/07/18 17:56 1 UNITS Prednisone (PredniSONE TAB) 20 mg QAM PO 04/02/18 09:00 05/01/18 08:59 04/09/18 09:15 20 MG Apixaban (Eliquis Tab) 2.5 mg BID PO 04/04/18 20:00 05/04/18 20:59 04/09/18 09:15 2.5 MG Enteral Nutritional Formula (Boost Plus Vanilla) 0.5 can QID PO 04/05/18 17:00 05/05/18 16:59 04/09/18 09:16 0.5 CAN Lansoprazole (Prevacid Solutab) 30 mg DAILY NG 04/07/18 09:30 05/07/18 09:29 04/09/18 09:15 30 MG Midodrine (Proamatine Tab) 2.5 mg TID@08,12,17 PRN PO 04/07/18 16:45 05/07/18 16:44 Impression (1) MANJULA (acute kidney injury) Karen Philip is a chronically ill and frail 83-year-old female with multiple comorbid medical conditions. 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 Karen is now being managed with tracheostomy and a chronic oxygen requirement. She has developed oliguric MANJULA consistent with ATN while being treated for multifocal MRSA pneumonia. MANJULA is consistent with ATN, possibly secondary to vancomycin nephrotoxicity. Vancomycin has been discontinued. Renal US did not show evidence of obstruction. UA is bland with acellular microscopy. Urine sodium excretion consistent with tubular injury. Recommendations -- Kidney function was unchanged overnight. Creatinine stable at 6.2. Patient is now nonoliguric -- Electrolyte balance is acceptable. No acute indication for HD today. Will monitor volume status, UO and electrolytes. -- Dalysis is likely to be complicated given multiple medical comorbidities -- Due to debility and chronic lung disease, patient is unfortunately a poor long-term candidate for benefits from dialysis
--- NOTE | 2018-04-09 17:32 | Progress Note ---
Subjective Date of Service: Apr 09, 2018. Subjective this pt is awake and alert, she makes eye contact and nods head appropriately, daughter is at bedside is concerned about anemia and iron level Problem List Medical Problems: (1) Cervical strain Status: Acute (2) Contusion of multiple sites Status: Acute (3) COPD exacerbation Status: Acute (4) Fall Status: Acute (5) Fall from chair, initial encounter Status: Acute (6) Fatigue Status: Acute (7) Head injury Status: Acute (8) Head injury Status: Acute (9) Hip pain Status: Acute (10) Hypocalcemia Status: Acute (11) Hypoxia Status: Acute (12) Hypoxia Status: Acute (13) Lower extremity edema Status: Acute (14) PNA (pneumonia) Status: Acute (15) Pneumonia Status: Acute (16) Pneumonitis Status: Acute (17) Reactive airway disease Status: Acute (18) Right flank pain Status: Acute (19) Sepsis Status: Acute (20) Sepsis Status: Acute (21) Syncope Status: Acute (22) Traumatic compression fracture of third thoracic vertebra Status: Acute (23) Vaginal yeast infection Status: Acute (24) Weakness Status: Acute (25) Yeast vaginitis Status: Acute Review of Systems Constitutional: + problem reported (pt is limited about her interactiion she declines pain or feeling depressed, otherwise her limited speech limits ROS) Objective Vital Signs Date Time Temp Pulse Resp B/P (MAP) Pulse Ox O2 Delivery O2 Flow Rate FiO2 04/09/18 07:45 36.9 72 18 155/86 (109) 96 Trach Collar 8.0 04/09/18 07:33 67 16 95 Trach Collar 28 04/09/18 02:05 88 16 97 Trach Collar 04/08/18 23:46 36.5 63 20 139/69 (92) 97 Trach Collar 04/08/18 22:00 Trach Collar 28 04/08/18 20:03 84 18 97 Trach Collar 28 04/08/18 16:00 94 Trach Collar 2.0 04/08/18 14:55 37.0 80 20 138/74 (95) 94 04/08/18 14:37 76 20 95 Trach Collar 28 Physical Exam General Appearance: + mild distress, + obese Eyes: normal inspection, sclerae normal Neck: supple, no JVD Respiratory/Chest: chest non-tender, + decreased breath sounds, + accessory muscle use Cardiovascular: regular rate, rhythm, no murmur Abdomen: normal bowel sounds, non tender, soft Extremities: no pedal edema, no calf tenderness Neurologic/Psychiatric: alert, + depressed affect Laboratory Results Last 24 Hours Test 04/08/18 11:26 04/08/18 16:40 04/08/18 16:57 04/08/18 20:17 Bedside Glucose 103 mg/dl 143 mg/dl 116 mg/dl Sodium Level 144 mmol/L Potassium Level 4.7 mmol/L Chloride Level 110 mmol/L Carbon Dioxide Level 27 mmol/L Anion Gap 7.0 mmol/L Blood Urea Nitrogen 32 mg/dl Creatinine 6.27 mg/dl Est Creatinine Clear Calc Drug Dose 7.5 ml/min Estimated GFR () 6.6 Estimated GFR (Non- 5.7 BUN/Creatinine Ratio 5.2 Random Glucose 128 mg/dl Calcium Level 7.7 mg/dl Test 04/09/18 05:48 04/09/18 07:31 Sodium Level 145 mmol/L Potassium Level 4.1 mmol/L Chloride Level 110 mmol/L Carbon Dioxide Level 26 mmol/L Anion Gap 9.0 mmol/L Blood Urea Nitrogen 35 mg/dl Creatinine 6.18 mg/dl Est Creatinine Clear Calc Drug Dose 7.6 ml/min Estimated GFR () 6.8 Estimated GFR (Non- 5.8 BUN/Creatinine Ratio 5.7 Random Glucose 70 mg/dl Calcium Level 7.7 mg/dl Phosphorus Level 3.8 mg/dl Albumin 2.0 gm/dl Bedside Glucose 80 mg/dl Assessment and Plan 83 y/o female presents with right sided chest/abd pain and acute on Chronic Respiratory Failure with hypoxia, COPD, H/O DVTs, Hypothyroidism, T2DM, CKD Stage II/III, Diastolic CHF, and Elevated R Hemidiaphragm S/P Plication, she underwent tracheostomy, has feeding difficulties and now has acute kidney injury b/l pneumonia - 2nd to MRSA - completed 14 days of vanco. Patient has a trach due likely to her weight, large neck and cushinoid features causing an obstruction. Patient currently requiring high flow oxygen. Patient just had a change in her trach which is now uncuffed. Size remains to be 6. Vanco level was toxic at end of treatment. Vanco has been held since level became toxic. new-onset a. fib - converted to NSR earlier this stay with amiodarone. Resumed amiodarone along w/ eliquis. ileus - ongoing. Will CONTINUE reglan IV q6h. Allow diet as desired/tolerated. acute/chronic hypoxic respiratory failure - s/p trach placement. Acute component 2nd to pneumonia dysphagia - patient refusing permanent feeding tube. She pulled out her NG tube earlier this past week. Speech re-evaluated her 03/30/18 w/ bedside swallow and patient placed back on thickened liquids. Tolerating such thus far. [facility] as desired/tolerated. protein calorie malnutrition, moderate-severe degree - again she is refusing permanent feeding tube. . COPD with mild exacerbation - wean to prednisone is not recommended to decreasing to 10 mg given the risk that she may become hypotensive from adrenal insufficiency. H/O DVTs - noted; resumed eliquis. Acute on CKD stage 3 Consulted neprhology Likely ATN, due to her lab tests. Hypothyroidism - compensated; cont synthroid. T2DM - controlled with insulin ssi. chronic diastolic CHF - compensated. In fact she has lost weight in the hospital. right-sided elevated Hemidiaphragm - S/P Plication in the past. depression - resumed SSRI. Consider titration and/or addition of additional medication. Pts daughter is concerned as hgb is slightly below 10 will add multivitamin po and check iron level in am, is currently not microcytic DVT proph - eliquis. RLS - requip. Continued [facility] stay due to: fever, inadequate po fluid intake, inadequate oral pain control, voiding difficulties, ambulation difficulties, multiple IV medications needed, other (ileus, pneumonia, etc) Discharge planning: uncertain
[2018-04-09] MEDS: ROPINIROLE HCL 0.25 MG TAB PO SCH (20:38)
[2018-04-09] MEDS: SENNA 8.6 MG TAB PO SCH (20:39)
[2018-04-09] MEDS: ACETAMINOPHEN 325 MG TAB PO PRN (20:53)
[2018-04-10] VITALS (8 sets, daily range): BP systolic 146–172; BP diastolic 78–83; PULSE 61–83; TEMP 36.5–37.1; O2SAT 92–99
[2018-04-10] MEDS: ALBUT/IPRATROP 3MG/0.5MG NEB 3 ML VIAL NEB SCH ×4 (01:46→19:30)
[2018-04-10] MEDS: METOCLOPRAMIDE HCL INJ 5 MG/ML 2 ML VIAL IV. SCH ×3 (05:56→19:44)
[2018-04-10] MEDS: LEVOTHYROXINE 100 MCG TAB PO SCH (05:56)
[2018-04-10] MEDS: INSULIN ASPART 100 UNITS/ML 3 ML PEN SC SCH ×4 (06:30→20:53)
[2018-04-10 06:32] LABS: HEMATOCRIT 29.7 % (37-47); HEMOGLOBIN 9.5 g/dL (12.0-16.0); MEAN CELL VOLUME 95.5 fL (80-100); MEAN CORPUSCULAR HEMOGLOBIN 30.5 pg (25-34); MEAN PLATELET VOLUME 10.4 fL (7.4-10.4); PLATELET COUNT 200 K/uL (130-400); RED CELL DISTRIBUTION WIDTH CV 16.3 % (11.5-14.5); RED CELL DISTRIBUTION WIDTH SD 56.8 fL (36.4-46.3); WHITE BLOOD COUNT 3.41 K/uL (4.8-10.8)
[2018-04-10 07:09] LABS: ALBUMIN 2.2 gm/dl (3.4-5.0); CALCIUM 7.8 mg/dl (8.5-10.1); CREATININE 6.18 mg/dl (0.60-1.20); PHOSPHORUS 4.3 mg/dl (2.5-4.9)
[2018-04-10] MEDS: BOOST PLUS VANILLA OR BOOST GLUCOSE CONTROL STRAWBERRY PO SCH ×4 (08:00→19:48)
[2018-04-10] MEDS: CITALOPRAM 20 MG TAB PO SCH (08:16)
[2018-04-10] MEDS: AMIODARONE 200 MG TAB PO SCH (08:16)
[2018-04-10] MEDS: NYSTATIN POWDER 15GM BTL EXT SCH ×3 (08:16→19:48)
[2018-04-10] MEDS: GABAPENTIN 300 MG CAP PO SCH ×2 (08:17→19:48)
[2018-04-10] MEDS: FLINTSTONES COMPLETE CHEWABLE TAB PO SCH (08:19)
[2018-04-10] MEDS: LANSOPRAZOLE SOLUTAB 30 MG NG SCH (08:20)
[2018-04-10] MEDS: SUCRALFATE 1 GM/10 ML UDC PO SCH ×4 (08:20→19:48)
[2018-04-10] MEDS: APIXABAN 2.5 MG TAB PO SCH ×2 (08:20→19:49)
--- NOTE | 2018-04-10 11:34 | Nephrology Progress Note ---
Nephrology Progress Note Date of Service Apr 10, 2018. Chief Complaint MANJULA Subjective Ms. Philip was seen & examined in her hospital room this morning. She opens her eyes to voice but does not vocalize or follow commands. She appears quite weak. Review of Systems Unable to obtain ROS Vital Signs Last 8 Hrs Date Time Temp Pulse Resp B/P (MAP) Pulse Ox O2 Delivery O2 Flow Rate FiO2 04/10/18 08:00 95 Trach Collar 8.0 28 04/10/18 07:44 36.5 70 16 158/79 (105) 95 Trach Collar 8.0 04/10/18 07:11 61 16 92 Trach Collar 8.0 28 Last Recorded Weight Weight (Kilograms): 94.500 Physical Exam General Appearance: + pertinent finding (chronically ill appearing) Head: atraumatic Eyes: PERRL Neck: no adenopathy, + pertinent finding (tracheostomy in place) Respiratory/Chest: lungs clear (anteriorly) Cardiovascular: + bradycardia Abdomen/GI: normal bowel sounds, soft Genitourinary - Female: + pertinent finding (christian catheter in place draining clear yellow urine) Extremities/Musculoskelatal: no pedal edema Neurologic/Psych: + pertinent finding (lethargic. Opens eyes to verbal command ) Family History Diabetes mellitus FH: cancer FH: gallbladder disease FH: heart disease FH: lung disease Hypertension Kidney disease or stones Social History Smoking Status: Never smoker Drug Use: none Marital Status: Housing Status: lives with family Occupation: retired Laboratory Results Past 24 Hours 04/10/18 05:50 04/10/18 05:50 Test 04/09/18 11:38 04/09/18 16:39 04/09/18 20:09 04/10/18 05:50 Bedside Glucose 89 mg/dl (70-90) 121 mg/dl (70-90) 102 mg/dl (70-90) Red Blood Count 3.11 M/uL (4.2-5.4) Mean Corpuscular Volume 95.5 fL (80-100) Mean Corpuscular Hemoglobin 30.5 pg (25-34) Mean Corpuscular Hemoglobin Concent 32.0 g/dl (32-36) RDW Standard Deviation 56.8 fL (36.4-46.3) RDW Coefficient of Variation 16.3 % (11.5-14.5) Mean Platelet Volume 10.4 fL (7.4-10.4) Anion Gap 7.0 mmol/L (3-11) Est Creatinine Clear Calc Drug Dose 7.6 ml/min Estimated GFR () 6.8 Estimated GFR (Non- 5.8 BUN/Creatinine Ratio 6.3 (10-20) Calcium Level 7.8 mg/dl (8.5-10.1) Phosphorus Level 4.3 mg/dl (2.5-4.9) Iron Level 31 mcg/dl (35-150) Albumin 2.2 gm/dl (3.4-5.0) Test 04/10/18 07:29 Bedside Glucose 79 mg/dl (70-90) Allergies Coded Allergies: Adhesives (Verified Allergy, Severe, TAPE-REDNESS, BLISTERS, 03/19/18) Pneumococcal Vaccine (Verified Allergy, Severe, SHORTNESS OF BREATH, ) Metronidazole (Verified Allergy, Intermediate, skin rash, 03/19/18) allergic to generic form Phenazopyridine (Verified Allergy, Intermediate, abdominal pain/rash, ) Erythromycin (Verified Allergy, Mild, RASH, 03/19/18) Salicylates (Verified Allergy, Unknown, pt states rash with ASA 325 but not ASA 81mg, 03/19/18) Sulfa Antibiotics (Verified Allergy, Unknown, ON MED LIST, 03/19/18) Tetracycline (Verified Allergy, Unknown, RASH, 03/19/18) Morphine (Verified Adverse Reaction, Intermediate, urinary retention - oral morphine only, 03/19/18) Diltiazem (Verified Adverse Reaction, Mild, FLUID RETENTION, 03/19/18) Metoclopramide (Verified Adverse Reaction, Mild, TREMORS, 03/19/18) Bacitracin (Verified Adverse Reaction, Unknown, "MAKES IT WORSE"-OK IF NOT OTC MEDICATION, 03/19/18) OKAY IF NOT OVER THE COUNTER MEDICATION Medications Current Inpatient Medications Medications (Trade) Dose Ordered Sig/Natasha Route Start Time Stop Time Status Last Admin Dose Admin Acetaminophen (Tylenol Tab) 650 mg Q4H PRN PO 03/15/18 18:30 04/14/18 18:29 Future hold 04/09/18 20:53 650 MG Al Hydrox/Mg Hydrox/Simethicone (Maalox Max Susp) 15 ml Q4H PRN PO 03/15/18 18:30 04/14/18 18:29 Magnesium Hydroxide (Milk Of Magnesia Susp) 30 ml Q12H PRN PO 03/15/18 18:30 04/14/18 18:29 Ondansetron HCl (Zofran Inj) 4 mg Q6H PRN IV 03/15/18 18:30 04/14/18 18:29 Albuterol Sulfate (Ventolin 0.083% 2.5MG/3ML Neb) 2.5 mg Q4H PRN INH 03/15/18 18:30 04/14/18 18:29 04/09/18 19:37 2.5 MG Albuterol/ Ipratropium (Duoneb) 3 ml Q6R NEB 03/15/18 21:00 04/14/18 20:59 04/10/18 07:09 3 ML Citalopram Hydrobromide (celeXA TAB) 30 mg DAILY PO 03/16/18 09:00 04/15/18 08:59 Future hold 04/10/18 08:16 30 MG Diclofenac Sodium (Voltaren 1% Top Gel) 1 appln QID PRN EXT 03/15/18 19:30 04/14/18 19:29 04/06/18 23:49 1 APPLN Gabapentin (Neurontin Cap) 300 mg BID PO 03/15/18 21:00 04/14/18 20:59 Future hold 04/10/18 08:17 300 MG Levothyroxine Sodium (Synthroid Tab) 100 mcg DAILYBB PO 03/16/18 06:00 04/15/18 06:59 Future hold 04/10/18 05:56 100 MCG Nystatin (Mycostatin Powder) 1 appln TID EXT 03/15/18 21:00 04/14/18 20:59 04/10/18 08:16 1 APPLN Ropinirole HCl (Requip Tab) 0.5 mg HS PO 03/15/18 21:00 04/14/18 20:59 Future hold 04/09/18 20:38 0.5 MG Sucralfate (Carafate Susp) 1 gm QID PO 03/15/18 21:00 04/14/18 20:59 Future hold 04/10/18 08:20 1 GM Miscellaneous Information (Order Awaiting Action) 1 ea QS N/A 03/16/18 00:00 04/15/18 00:00 03/18/18 18:49 1 EA Glucose (Glucose 40% Gel) 15-30 GRAMS 15 GRAMS... UD PRN PO 03/15/18 19:00 04/14/18 18:59 Glucose (Glucose Chew Tab) 4-8 Tablets 4 Tabl... UD PRN PO 03/15/18 19:00 04/14/18 18:59 Dextrose (Dextrose 50% 50ML Syringe) 25-50ML 25ML FOR ... UD PRN IV 03/15/18 19:00 04/14/18 18:59 Glucagon (Glucagon Inj) 1 mg UD PRN SQ 03/15/18 19:00 04/14/18 18:59 Carbohydrates (Carbohydrates For Hypoglycemia) 15-30 GRAMS 15 grams if BSG 54-69... UD PRN PO 03/15/18 19:00 04/14/18 18:59 Heparin Sodium (Porcine) (Heparin 10 Unit/ ml 5 ml Flush) 5 ml PRN PRN FLUSH 03/20/18 00:30 04/19/18 00:29 04/10/18 05:59 5 ML Amiodarone HCl (Cordarone Tab) 200 mg DAILY PO 03/29/18 09:00 04/28/18 08:59 04/10/18 08:16 200 MG Non-Formulary Medication (Non-Formulary Patient'S Own Med) 1 ea DAILY PO 03/22/18 09:00 04/21/18 08:59 04/04/18 08:05 1 EA Senna (Senokot Tab) 17.2 mg HS PO 03/24/18 21:00 04/23/18 20:59 Future hold 04/09/18 20:39 17.2 MG Acetaminophen 100 ml @ 400 mls/hr Q8H PRN IV 03/25/18 15:45 04/24/18 15:44 04/08/18 19:36 400 MLS/HR Lorazepam (Ativan Inj) 0.5 mg Q6H PRN IV 03/27/18 18:15 04/26/18 18:14 03/31/18 03:54 0.5 MG Lorazepam 0.5 mg/ Syringe 1 ml @ 1 mls/min Q6H PRN IV 03/27/18 18:45 04/26/18 18:44 Metoclopramide HCl (Reglan Inj) 5 mg Q6H IV. 03/30/18 12:00 04/29/18 11:59 04/10/18 05:56 5 MG Insulin Aspart (novoLOG ASPART) SLIDING SCALE If C... ACHS SC 04/01/18 07:00 05/01/18 06:59 04/07/18 17:56 1 UNITS Prednisone (PredniSONE TAB) 20 mg QAM PO 04/02/18 09:00 05/01/18 08:59 04/10/18 08:19 20 MG Apixaban (Eliquis Tab) 2.5 mg BID PO 04/04/18 20:00 05/04/18 20:59 04/10/18 08:20 2.5 MG Enteral Nutritional Formula (Boost Plus Vanilla) 0.5 can QID PO 04/05/18 17:00 05/05/18 16:59 04/10/18 08:00 0.5 CAN Lansoprazole (Prevacid Solutab) 30 mg DAILY NG 04/07/18 09:30 05/07/18 09:29 04/10/18 08:20 30 MG Midodrine (Proamatine Tab) 2.5 mg TID@08,12,17 PRN PO 04/07/18 16:45 05/07/18 16:44 Multivitamins (Flintstones Complete Tab) 2 tab QAM PO 04/10/18 08:00 05/10/18 07:59 04/10/18 08:19 2 TAB Iron Sucrose 100 mg/Sodium Chloride 105 ml @ 420 mls/hr TODAY@1200 IV 04/10/18 12:00 04/10/18 12:14 04/10/18 10:51 420 MLS/HR Impression (1) MANJULA (acute kidney injury) (2) Pneumonia (3) MRSA (methicillin resistant staph aureus) culture positive (4) COPD exacerbation Karen Philip is a chronically ill and frail 83-year-old female with multiple comorbid medical conditions. 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 Karen is now being managed with tracheostomy and a chronic oxygen requirement. She has developed oliguric MANJULA consistent with ATN while being treated for multifocal MRSA pneumonia. MANJULA is consistent with ATN, possibly secondary to vancomycin nephrotoxicity. Vancomycin has been discontinued. Renal US did not show evidence of obstruction. UA is bland with acellular microscopy. Urine sodium excretion consistent with tubular injury. Recommendations -- Kidney function was unchanged overnight. Creatinine remains stable at ~6.2. Urine output is improving. Patient had 900 cc UO last 24 hours. -- Electrolyte balance is acceptable. No acute indication for HD today. Will monitor volume status, UO and electrolytes. -- Dialysis is likely to be complicated given multiple medical comorbidities. Continue supportive care. Patient may be entering recovery phase of ATN -- Due to debility and chronic lung disease, patient is unfortunately a poor long-term candidate for benefits from dialysis
[2018-04-10] MEDS ORDERED: IRON SUCROSE INJ 100 MG in SODIUM CHLORIDE 0.9% 100ML 100 ML IV SCH (12:00)
--- NOTE | 2018-04-10 15:24 | Progress Note ---
Subjective Date of Service: Apr 10, 2018. Subjective Patient is sleeping but awoke easily she is able to nod and mouth yes or no to my questions. She denied having any recent pain or problems. She did not eat much breakfast but she states she feels like eating lunch she has no focal pain is still in agreement to pursue rehabilitation when appropriate Problem List Medical Problems: (1) Cervical strain Status: Acute (2) Contusion of multiple sites Status: Acute (3) COPD exacerbation Status: Acute (4) Fall Status: Acute (5) Fall from chair, initial encounter Status: Acute (6) Fatigue Status: Acute (7) Head injury Status: Acute (8) Head injury Status: Acute (9) Hip pain Status: Acute (10) Hypocalcemia Status: Acute (11) Hypoxia Status: Acute (12) Hypoxia Status: Acute (13) Lower extremity edema Status: Acute (14) PNA (pneumonia) Status: Acute (15) Pneumonia Status: Acute (16) Pneumonitis Status: Acute (17) Reactive airway disease Status: Acute (18) Right flank pain Status: Acute (19) Sepsis Status: Acute (20) Sepsis Status: Acute (21) Syncope Status: Acute (22) Traumatic compression fracture of third thoracic vertebra Status: Acute (23) Vaginal yeast infection Status: Acute (24) Weakness Status: Acute (25) Yeast vaginitis Status: Acute Review of Systems Constitutional: + weakness, + fatigue, No fever, No chills Respiratory: No cough, No shortness of breath, No dyspnea on exertion Cardiac: No chest pain, No edema Abdomen: No pain, No nausea, No vomiting, No diarrhea Neurologic: + weakness, No memory loss Psychiatric: + depression symptoms, No anhedonism Objective Vital Signs Date Time Temp Pulse Resp B/P (MAP) Pulse Ox O2 Delivery O2 Flow Rate FiO2 04/10/18 14:15 82 16 96 Trach Collar 8.0 04/10/18 08:00 95 Trach Collar 8.0 04/10/18 07:44 36.5 70 16 158/79 (105) 95 Trach Collar 8.0 04/10/18 07:11 61 16 92 Trach Collar 8.0 04/10/18 01:46 63 16 99 Trach Collar 8.0 04/10/18 00:00 Trach Collar 8.0 04/09/18 23:20 36.8 68 16 113/68 (83) 100 Trach Collar 8.0 04/09/18 19:40 63 18 98 Trach Collar 28 04/09/18 16:00 Trach Collar 8.0 Physical Exam General Appearance: WD/WN, + mild distress Eyes: normal inspection, sclerae normal Neck: supple, no JVD Respiratory/Chest: chest non-tender, lungs clear, no accessory muscle use Cardiovascular: regular rate, rhythm, no murmur Abdomen: normal bowel sounds, non tender, soft Extremities: no calf tenderness, + pedal edema Laboratory Results Last 24 Hours Test 04/09/18 16:39 04/09/18 20:09 04/10/18 05:50 04/10/18 07:29 Bedside Glucose 121 mg/dl 102 mg/dl 79 mg/dl White Blood Count 3.41 K/uL Red Blood Count 3.11 M/uL Hemoglobin 9.5 g/dL Hematocrit 29.7 % Mean Corpuscular Volume 95.5 fL Mean Corpuscular Hemoglobin 30.5 pg Mean Corpuscular Hemoglobin Concent 32.0 g/dl RDW Standard Deviation 56.8 fL RDW Coefficient of Variation 16.3 % Platelet Count 200 K/uL Mean Platelet Volume 10.4 fL Sodium Level 145 mmol/L Potassium Level 4.0 mmol/L Chloride Level 109 mmol/L Carbon Dioxide Level 28 mmol/L Anion Gap 7.0 mmol/L Blood Urea Nitrogen 38 mg/dl Creatinine 6.18 mg/dl Est Creatinine Clear Calc Drug Dose 7.6 ml/min Estimated GFR () 6.8 Estimated GFR (Non- 5.8 BUN/Creatinine Ratio 6.3 Random Glucose 74 mg/dl Calcium Level 7.8 mg/dl Phosphorus Level 4.3 mg/dl Iron Level 31 mcg/dl Albumin 2.2 gm/dl Test 04/10/18 11:39 Bedside Glucose 85 mg/dl Assessment and Plan 83 y/o female presents with right sided chest/abd pain and acute on Chronic Respiratory Failure with hypoxia, COPD, H/O DVTs, Hypothyroidism, T2DM, CKD Stage II/III, Diastolic CHF, and Elevated R Hemidiaphragm S/P Plication, she underwent tracheostomy, has feeding difficulties and now has acute kidney injury b/l pneumonia - 2nd to MRSA - completed 14 days of vanco. Patient has a trach due likely to her weight, large neck and cushinoid features causing an obstruction. changed trach to uncuffed.Size 6. Vanco level was toxic at end of treatment. Vanco has been held since level became toxic. new-onset a. fib - converted to NSR earlier this stay with amiodarone. amiodarone along w/ eliquis. need to work on a bowel regimen, limited oral fiber intake also at play acute/chronic hypoxic respiratory failure - s/p trach placement. Acute component 2nd to pneumonia dysphagia - patient refusing permanent feeding tube. Speech re-evaluated her 03/30/18 w/ bedside swallow and patient placed back on thickened liquids. Tolerating such thus far. Allow [facility] soft diabetic diet as desired/tolerated. protein calorie malnutrition, moderate-severe degree - again she is refusing permanent feeding tube. . COPD with mild exacerbation - wean to prednisone is not recommended to decreasing to 10 mg given the risk that she may become hypotensive from adrenal insufficiency. H/O DVTs - noted; resumed eliquis. Acute on CKD stage 3 Consulted neprhology Likely ATN, due to her lab tests. Hypothyroidism - compensated; cont synthroid. T2DM - controlled with insulin ssi. chronic diastolic CHF - compensated. In fact she has lost weight in the hospital. right-sided elevated Hemidiaphragm - S/P Plication in the past. depression - resumed SSRI. Consider titration and/or addition of additional medication. iron deficiency, pt has issues taking oral iron will have dose of iv iron and follow anemia especially since on anticoagulation. on prevacid soltab DVT proph - eliquis. RLS - requip. Continued [facility] stay due to: fever, inadequate po fluid intake, inadequate oral pain control, voiding difficulties, ambulation difficulties, multiple IV medications needed, other (ileus, pneumonia, etc) Discharge planning: uncertain
[2018-04-10] MEDS: ROPINIROLE HCL 0.25 MG TAB PO SCH (19:49)
[2018-04-10] MEDS: SENNA 8.6 MG TAB PO SCH (19:50)
[2018-04-11] VITALS (8 sets, daily range): BP systolic 139–181; BP diastolic 71–83; PULSE 67–80; TEMP 36.2–37; O2SAT 92–98
[2018-04-11] MEDS: METOCLOPRAMIDE HCL INJ 5 MG/ML 2 ML VIAL IV. SCH ×5 (00:11→23:42)
[2018-04-11] MEDS: ALBUT/IPRATROP 3MG/0.5MG NEB 3 ML VIAL NEB SCH ×4 (02:05→19:13)
[2018-04-11] MEDS: LEVOTHYROXINE 100 MCG TAB PO SCH (05:27)
[2018-04-11] MEDS: ACETAMINOPHEN 325 MG TAB PO PRN (05:28)
[2018-04-11 06:49] LABS: CALCIUM 8.2 mg/dl (8.5-10.1); CREATININE 5.58 mg/dl (0.60-1.20); POTASSIUM 3.9 mmol/L (3.5-5.1)
[2018-04-11] MEDS: GABAPENTIN 300 MG CAP PO SCH ×2 (07:59→20:29)
[2018-04-11] MEDS: FLINTSTONES COMPLETE CHEWABLE TAB PO SCH (07:59)
[2018-04-11] MEDS: APIXABAN 2.5 MG TAB PO SCH ×2 (07:59→20:25)
[2018-04-11] MEDS: AMIODARONE 200 MG TAB PO SCH (07:59)
[2018-04-11] MEDS: CITALOPRAM 20 MG TAB PO SCH (07:59)
[2018-04-11] MEDS: SUCRALFATE 1 GM/10 ML UDC PO SCH ×4 (08:00→20:25)
[2018-04-11] MEDS: LANSOPRAZOLE SOLUTAB 30 MG NG SCH (08:00)
[2018-04-11] MEDS: BOOST PLUS VANILLA OR BOOST GLUCOSE CONTROL STRAWBERRY PO SCH ×4 (08:00→20:25)
[2018-04-11] MEDS: NYSTATIN POWDER 15GM BTL EXT SCH ×3 (08:01→20:24)
[2018-04-11] MEDS: INSULIN ASPART 100 UNITS/ML 3 ML PEN SC SCH ×4 (09:18→21:00)
[2018-04-11 09:19] LABS: HEMATOCRIT 34.2 % (37-47); HEMOGLOBIN 10.4 g/dL (12.0-16.0)
--- NOTE | 2018-04-11 12:19 | Nephrology Progress Note ---
Nephrology Progress Note Date of Service Apr 11, 2018. Chief Complaint MAJNULA Subjective Ms. Philip was seen & examined in her hospital room this morning. She opens her eyes to voice and will nod her head "yes or no". She indicated that she is very weak. She is breathing comfortably with her tracheostomy Review of Systems Patient unable to participate in ROS Vital Signs Last 8 Hrs Date Time Temp Pulse Resp B/P (MAP) Pulse Ox O2 Delivery O2 Flow Rate FiO2 04/11/18 08:46 Trach Collar 28 04/11/18 07:26 36.9 70 16 163/80 (107) 97 Trach Collar 6.0 04/11/18 07:22 67 16 92 Trach Collar 6.0 28 Last Recorded Weight Weight (Kilograms): 94.500 Physical Exam General Appearance: + pertinent finding (frail, chronically ill appearing) Head: atraumatic Eyes: PERRL, EOMI Neck: + pertinent finding (breathing via trach mask) Respiratory/Chest: lungs clear (anteriorly. Patient could not sit forward for evaluation of posterior lung madden) Cardiovascular: regular rate, rhythm Abdomen/GI: normal bowel sounds, non tender, soft Extremities/Musculoskelatal: + pertinent finding (3+ dependent edema) Neurologic/Psych: + pertinent finding (lethargic but awakens to voice) Family History Diabetes mellitus FH: cancer FH: gallbladder disease FH: heart disease FH: lung disease Hypertension Kidney disease or stones Social History Smoking Status: Never smoker Drug Use: none Marital Status: Housing Status: lives with family Occupation: retired Laboratory Results Past 24 Hours 04/11/18 08:50 04/11/18 05:43 Test 04/10/18 16:40 04/10/18 20:18 04/11/18 05:43 04/11/18 07:45 Bedside Glucose 111 mg/dl (70-90) 121 mg/dl (70-90) 79 mg/dl (70-90) Anion Gap 7.0 mmol/L (3-11) Est Creatinine Clear Calc Drug Dose 8.5 ml/min Estimated GFR () 7.7 Estimated GFR (Non- 6.6 BUN/Creatinine Ratio 6.8 (10-20) Calcium Level 8.2 mg/dl (8.5-10.1) Test 04/11/18 11:38 Bedside Glucose 121 mg/dl (70-90) Allergies Coded Allergies: Adhesives (Verified Allergy, Severe, TAPE-REDNESS, BLISTERS, 03/19/18) Pneumococcal Vaccine (Verified Allergy, Severe, SHORTNESS OF BREATH, ) Metronidazole (Verified Allergy, Intermediate, skin rash, 03/19/18) allergic to generic form Phenazopyridine (Verified Allergy, Intermediate, abdominal pain/rash, ) Erythromycin (Verified Allergy, Mild, RASH, 03/19/18) Salicylates (Verified Allergy, Unknown, pt states rash with ASA 325 but not ASA 81mg, 03/19/18) Sulfa Antibiotics (Verified Allergy, Unknown, ON MED LIST, 03/19/18) Tetracycline (Verified Allergy, Unknown, RASH, 03/19/18) Morphine (Verified Adverse Reaction, Intermediate, urinary retention - oral morphine only, 03/19/18) Diltiazem (Verified Adverse Reaction, Mild, FLUID RETENTION, 03/19/18) Metoclopramide (Verified Adverse Reaction, Mild, TREMORS, 03/19/18) Bacitracin (Verified Adverse Reaction, Unknown, "MAKES IT WORSE"-OK IF NOT OTC MEDICATION, 03/19/18) OKAY IF NOT OVER THE COUNTER MEDICATION Medications Current Inpatient Medications Medications (Trade) Dose Ordered Sig/Natasha Route Start Time Stop Time Status Last Admin Dose Admin Acetaminophen (Tylenol Tab) 650 mg Q4H PRN PO 03/15/18 18:30 04/14/18 18:29 Future hold 04/11/18 05:28 650 MG Al Hydrox/Mg Hydrox/Simethicone (Maalox Max Susp) 15 ml Q4H PRN PO 03/15/18 18:30 04/14/18 18:29 Magnesium Hydroxide (Milk Of Magnesia Susp) 30 ml Q12H PRN PO 03/15/18 18:30 04/14/18 18:29 Ondansetron HCl (Zofran Inj) 4 mg Q6H PRN IV 03/15/18 18:30 04/14/18 18:29 Albuterol Sulfate (Ventolin 0.083% 2.5MG/3ML Neb) 2.5 mg Q4H PRN INH 03/15/18 18:30 04/14/18 18:29 04/09/18 19:37 2.5 MG Albuterol/ Ipratropium (Duoneb) 3 ml Q6R NEB 03/15/18 21:00 04/14/18 20:59 04/11/18 07:21 3 ML Citalopram Hydrobromide (celeXA TAB) 30 mg DAILY PO 03/16/18 09:00 04/15/18 08:59 Future hold 04/11/18 07:59 30 MG Diclofenac Sodium (Voltaren 1% Top Gel) 1 appln QID PRN EXT 03/15/18 19:30 04/14/18 19:29 04/06/18 23:49 1 APPLN Gabapentin (Neurontin Cap) 300 mg BID PO 03/15/18 21:00 04/14/18 20:59 Future hold 04/11/18 07:59 300 MG Levothyroxine Sodium (Synthroid Tab) 100 mcg DAILYBB PO 03/16/18 06:00 04/15/18 06:59 Future hold 04/11/18 05:27 100 MCG Nystatin (Mycostatin Powder) 1 appln TID EXT 03/15/18 21:00 04/14/18 20:59 04/11/18 08:01 1 APPLN Ropinirole HCl (Requip Tab) 0.5 mg HS PO 03/15/18 21:00 04/14/18 20:59 Future hold 04/10/18 19:49 0.5 MG Sucralfate (Carafate Susp) 1 gm QID PO 03/15/18 21:00 04/14/18 20:59 Future hold 04/11/18 08:00 1 GM Miscellaneous Information (Order Awaiting Action) 1 ea QS N/A 03/16/18 00:00 04/15/18 00:00 03/18/18 18:49 1 EA Glucose (Glucose 40% Gel) 15-30 GRAMS 15 GRAMS... UD PRN PO 03/15/18 19:00 04/14/18 18:59 Glucose (Glucose Chew Tab) 4-8 Tablets 4 Tabl... UD PRN PO 03/15/18 19:00 04/14/18 18:59 Dextrose (Dextrose 50% 50ML Syringe) 25-50ML 25ML FOR ... UD PRN IV 03/15/18 19:00 04/14/18 18:59 Glucagon (Glucagon Inj) 1 mg UD PRN SQ 03/15/18 19:00 04/14/18 18:59 Carbohydrates (Carbohydrates For Hypoglycemia) 15-30 GRAMS 15 grams if BSG 54-69... UD PRN PO 03/15/18 19:00 04/14/18 18:59 Heparin Sodium (Porcine) (Heparin 10 Unit/ ml 5 ml Flush) 5 ml PRN PRN FLUSH 03/20/18 00:30 04/19/18 00:29 04/11/18 05:28 5 ML Amiodarone HCl (Cordarone Tab) 200 mg DAILY PO 03/29/18 09:00 04/28/18 08:59 04/11/18 07:59 200 MG Non-Formulary Medication (Non-Formulary Patient'S Own Med) 1 ea DAILY PO 03/22/18 09:00 04/21/18 08:59 04/04/18 08:05 1 EA Senna (Senokot Tab) 17.2 mg HS PO 03/24/18 21:00 04/23/18 20:59 Future hold 04/10/18 19:50 17.2 MG Acetaminophen 100 ml @ 400 mls/hr Q8H PRN IV 03/25/18 15:45 04/24/18 15:44 04/08/18 19:36 400 MLS/HR Lorazepam (Ativan Inj) 0.5 mg Q6H PRN IV 03/27/18 18:15 04/26/18 18:14 03/31/18 03:54 0.5 MG Lorazepam 0.5 mg/ Syringe 1 ml @ 1 mls/min Q6H PRN IV 03/27/18 18:45 04/26/18 18:44 Metoclopramide HCl (Reglan Inj) 5 mg Q6H IV. 03/30/18 12:00 04/29/18 11:59 04/11/18 05:28 5 MG Insulin Aspart (novoLOG ASPART) SLIDING SCALE If C... ACHS SC 04/01/18 07:00 05/01/18 06:59 04/07/18 17:56 1 UNITS Prednisone (PredniSONE TAB) 20 mg QAM PO 04/02/18 09:00 05/01/18 08:59 04/11/18 07:59 20 MG Apixaban (Eliquis Tab) 2.5 mg BID PO 04/04/18 20:00 05/04/18 20:59 04/11/18 07:59 2.5 MG Enteral Nutritional Formula (Boost Plus Vanilla) 0.5 can QID PO 04/05/18 17:00 05/05/18 16:59 04/11/18 08:00 0.5 CAN Lansoprazole (Prevacid Solutab) 30 mg DAILY NG 04/07/18 09:30 05/07/18 09:29 04/11/18 08:00 30 MG Midodrine (Proamatine Tab) 2.5 mg TID@08,12,17 PRN PO 04/07/18 16:45 05/07/18 16:44 Multivitamins (Flintstones Complete Tab) 2 tab QAM PO 04/10/18 08:00 05/10/18 07:59 04/11/18 07:59 2 TAB Impression (1) MANJULA (acute kidney injury) (2) Pneumonia (3) MRSA (methicillin resistant staph aureus) culture positive (4) COPD exacerbation Karen Philip is a chronically ill and frail 83-year-old female with multiple comorbid medical conditions. 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 Karen is now being managed with tracheostomy and a chronic oxygen requirement. She has developed oliguric MANJULA consistent with ATN while being treated for multifocal MRSA pneumonia. MANJULA is consistent with ATN, possibly secondary to vancomycin nephrotoxicity. Vancomycin has been discontinued. Renal US did not show evidence of obstruction. UA is bland with acellular microscopy. Urine sodium excretion consistent with tubular injury. Recommendations -- Patient is now within the recovery phase of ATN. Creatinine is trending down and UO was > 1 L overnight. Electrolyte balance remains acceptable. Will continue to monitor. No acute indication for HD at this time. -- Monitor volume status, UO and electrolytes. -- Dialysis is likely to be complicated given multiple medical comorbidities. Continue supportive care. -- Due to debility and chronic lung disease, patient is unfortunately a poor long-term candidate for benefits from dialysis
--- NOTE | 2018-04-11 15:31 | Progress Note ---
Subjective Date of Service: Apr 11, 2018. Subjective this pt is weak but attempting to eat as being fed by daughter, has had some response from bone marrow with elevation of HGB We are looking for rehab placement and she is being evaluated by LT[facility] Problem List Medical Problems: (1) Cervical strain Status: Acute (2) Contusion of multiple sites Status: Acute (3) COPD exacerbation Status: Acute (4) Fall Status: Acute (5) Fall from chair, initial encounter Status: Acute (6) Fatigue Status: Acute (7) Head injury Status: Acute (8) Head injury Status: Acute (9) Hip pain Status: Acute (10) Hypocalcemia Status: Acute (11) Hypoxia Status: Acute (12) Hypoxia Status: Acute (13) Lower extremity edema Status: Acute (14) PNA (pneumonia) Status: Acute (15) Pneumonia Status: Acute (16) Pneumonitis Status: Acute (17) Reactive airway disease Status: Acute (18) Right flank pain Status: Acute (19) Sepsis Status: Acute (20) Sepsis Status: Acute (21) Syncope Status: Acute (22) Traumatic compression fracture of third thoracic vertebra Status: Acute (23) Vaginal yeast infection Status: Acute (24) Weakness Status: Acute (25) Yeast vaginitis Status: Acute Review of Systems Constitutional: + weakness, + fatigue, No fever, No chills Respiratory: + dyspnea on exertion, No cough, No shortness of breath Cardiac: + edema, No chest pain Abdomen: + constipation, No pain, No nausea, No vomiting Musculoskeletal: No joint pain, No muscle pain Neurologic: + weakness, + balance problems, No memory loss, No paralysis Objective Vital Signs Date Time Temp Pulse Resp B/P (MAP) Pulse Ox O2 Delivery O2 Flow Rate FiO2 04/11/18 14:31 79 16 98 Trach Collar 6.0 04/11/18 08:46 Trach Collar 04/11/18 07:26 36.9 70 16 163/80 (107) 97 Trach Collar 6.0 04/11/18 07:22 67 16 92 Trach Collar 6.0 04/11/18 02:07 68 14 92 Trach Collar 6.0 04/11/18 00:45 Trach Collar 04/10/18 23:49 37.1 78 22 146/83 (104) 96 Trach Collar 6.0 04/10/18 19:34 71 14 98 Trach Collar 6.0 04/10/18 17:03 Trach Collar 7.0 Physical Exam General Appearance: WD/WN, + mild distress Neck: supple, no JVD Respiratory/Chest: + decreased breath sounds, + accessory muscle use Cardiovascular: regular rate, rhythm, no murmur Abdomen: normal bowel sounds, non tender, soft Extremities: no calf tenderness, + pedal edema Neurologic/Psychiatric: alert, + depressed affect Laboratory Results Last 24 Hours Test 04/10/18 16:40 04/10/18 20:18 04/11/18 05:43 04/11/18 07:45 Bedside Glucose 111 mg/dl 121 mg/dl 79 mg/dl Sodium Level 145 mmol/L Potassium Level 3.9 mmol/L Chloride Level 109 mmol/L Carbon Dioxide Level 29 mmol/L Anion Gap 7.0 mmol/L Blood Urea Nitrogen 38 mg/dl Creatinine 5.58 mg/dl Est Creatinine Clear Calc Drug Dose 8.5 ml/min Estimated GFR () 7.7 Estimated GFR (Non- 6.6 BUN/Creatinine Ratio 6.8 Random Glucose 90 mg/dl Calcium Level 8.2 mg/dl Test 04/11/18 08:50 04/11/18 11:38 Hemoglobin 10.4 g/dL Hematocrit 34.2 % Bedside Glucose 121 mg/dl Assessment and Plan 83 y/o female presents with right sided chest/abd pain and acute on Chronic Respiratory Failure with hypoxia, COPD, H/O DVTs, Hypothyroidism, T2DM, CKD Stage II/III, Diastolic CHF, and Elevated R Hemidiaphragm S/P Plication, she underwent tracheostomy, has feeding difficulties and now has acute kidney injury which is resolving b/l pneumonia - 2nd to MRSA - completed 14 days of vanco. Patient has a trach due likely to her weight, large neck and cushinoid features causing airway obstruction. changed trach to uncuffed.Size 6. Vanco level was toxic at end of treatment. Vanco has been held since level became toxic. new-onset a. fib - converted to NSR earlier this stay with amiodarone. amiodarone along w/ eliquis. need to work on a bowel regimen, limited oral fiber intake also at play acute/chronic hypoxic respiratory failure - s/p trach placement. Acute component 2nd to pneumonia has resolved dysphagia - patient refusing permanent feeding tube. Speech re-evaluated her 03/30/18 w/ bedside swallow and patient placed back on thickened liquids. Tolerating such thus far. Allow [facility] soft diabetic diet as desired/tolerated, has had challenges meeting caloric intake. protein calorie malnutrition, moderate-severe degree - again she is refusing permanent feeding tube, offering oral feeds and supplements. . COPD with mild exacerbation - wean to prednisone is not recommended to decreasing to 10 mg given the risk that she may become hypotensive from adrenal insufficiency. H/O DVTs - noted; resumed eliquis. Acute on CKD stage 3 Consulted neprhology, resolving ATN, due to her lab tests. Hypothyroidism - compensated; cont synthroid. T2DM - controlled with insulin ssi. chronic diastolic CHF - compensated. In fact she has lost weight in the hospital. right-sided elevated Hemidiaphragm - S/P Plication in the past. depression - resumed SSRI. Consider titration and/or addition of additional medication. iron deficiency, pt has issues taking oral iron will have dose of iv iron and follow anemia especially since on anticoagulation. on prevacid soltab DVT proph - eliquis. RLS - requip. Continued [facility] stay due to: fever, inadequate po fluid intake, inadequate oral pain control, voiding difficulties, ambulation difficulties, multiple IV medications needed, other (ileus, pneumonia, etc) Discharge planning: uncertain
--- NOTE | 2018-04-11 15:56 | PULMONARY PROGRESS NOTE ---
DATE: 04/11/2018 TIME: 03:40 p.m. SUBJECTIVE: The patient is a little brighter today. She indicates that she is less short of breath. She nods her head yes when I asked her if she feels better today. OBJECTIVE: GENERAL: She looked comfortable. She awakened easily. VITAL SIGNS: Temperature 36.9. Cardiac rate was 79 per minute. Blood pressure 163/80. LUNGS: Lung madden revealed better aeration. She was able to take deeper breaths than prior. Lung madden were clear. Trach is in place. Saturation is 98% on a 28% trach collar. EXTREMITIES: Show what appears to be decreased edema. The upper extremities are still edematous, but the lower extremities have improved. She has already had 950 mL of urine output today thus far. LABORATORY DATA: Hemoglobin today is 10.4 with hematocrit 34.2. Today's BUN is 38 with a creatinine of 5.58. Her creatinine appears to have peaked at 6.27 on the . IMPRESSIONS: 1. Acute on chronic respiratory failure with hypoxia and hypercarbia. 2. Chronic obstructive pulmonary disease. 3. Cor pulmonale. 4. Obesity hypoventilation syndrome. 5. Sleep apnea. 6. Status post trach. 7. Renal failure. COMMENTS AND RECOMMENDATIONS: The patient seems a little better today in certain perspectives. I have no new suggestions from a respiratory perspective. Hopefully, as her renal function improves, she may become more awake and alert. I believe at some point in time we should make an attempt to help the patient be able to speak through her trach. This may require use of a Passy-Lizeth valve. Consider checking with Dr. Velazquez regarding his opinion about how to accomplish this for the patient.
[2018-04-11] MEDS: ROPINIROLE HCL 0.25 MG TAB PO SCH (20:26)
[2018-04-11] MEDS: SENNA 8.6 MG TAB PO SCH (20:27)
[2018-04-12] VITALS (7 sets, daily range): BP systolic 149–160; BP diastolic 74–82; PULSE 64–80; TEMP 36.6–36.8; O2SAT 94–98
[2018-04-12] MEDS: ALBUT/IPRATROP 3MG/0.5MG NEB 3 ML VIAL NEB SCH ×4 (02:05→19:33)
[2018-04-12] MEDS: LEVOTHYROXINE 100 MCG TAB PO SCH (05:28)
[2018-04-12] MEDS: METOCLOPRAMIDE HCL INJ 5 MG/ML 2 ML VIAL IV. SCH ×4 (05:28→23:09)
[2018-04-12 06:59] LABS: CALCIUM 7.9 mg/dl (8.5-10.1); CREATININE 4.99 mg/dl (0.60-1.20); POTASSIUM 3.6 mmol/L (3.5-5.1)
[2018-04-12] MEDS: BOOST PLUS VANILLA OR BOOST GLUCOSE CONTROL STRAWBERRY PO SCH ×4 (07:57→20:00)
[2018-04-12] MEDS: AMIODARONE 200 MG TAB PO SCH (07:59)
[2018-04-12] MEDS: SUCRALFATE 1 GM/10 ML UDC PO SCH ×4 (08:00→20:21)
[2018-04-12] MEDS: LANSOPRAZOLE SOLUTAB 30 MG NG SCH (08:00)
[2018-04-12] MEDS: GABAPENTIN 300 MG CAP PO SCH ×2 (08:00→21:18)
[2018-04-12] MEDS: CITALOPRAM 20 MG TAB PO SCH (08:00)
[2018-04-12] MEDS: APIXABAN 2.5 MG TAB PO SCH ×2 (08:00→20:20)
[2018-04-12] MEDS: FLINTSTONES COMPLETE CHEWABLE TAB PO SCH (08:00)
[2018-04-12] MEDS: INSULIN ASPART 100 UNITS/ML 3 ML PEN SC SCH ×4 (08:01→21:00)
[2018-04-12] MEDS: NYSTATIN POWDER 15GM BTL EXT SCH ×3 (08:01→20:22)
--- NOTE | 2018-04-12 10:29 | Nephrology Progress Note ---
Nephrology Progress Note Date of Service Apr 12, 2018. Chief Complaint MANJULA Subjective Ms. Philip was seen & examined in her hospital room this morning. She opens her eyes to voice and will nod her head to yes/no questions. She remains very weak but appears to be breathing comfortably on trach collar at 6 L / min. Review of Systems Respiratory: No dyspnea at rest Patient is unable to participate in ROS Vital Signs Last 8 Hrs Date Time Temp Pulse Resp B/P (MAP) Pulse Ox O2 Delivery O2 Flow Rate FiO2 04/12/18 09:11 Trach Collar 28 04/12/18 07:31 36.6 80 20 152/82 (105) 98 Trach Collar 6.0 28 04/12/18 07:04 76 14 98 Trach Collar 6.0 28 Last Recorded Weight Weight (Kilograms): 88.600 Physical Exam General Appearance: + pertinent finding (frail, chronically ill appearing) Head: atraumatic Eyes: PERRL, EOMI Neck: no adenopathy, + pertinent finding (trach collar in place) Respiratory/Chest: lungs clear, no respiratory distress Cardiovascular: regular rate, rhythm Abdomen/GI: normal bowel sounds, non tender, soft Extremities/Musculoskelatal: no calf tenderness, no pedal edema Neurologic/Psych: alert, oriented x 3 Family History Diabetes mellitus FH: cancer FH: gallbladder disease FH: heart disease FH: lung disease Hypertension Kidney disease or stones Social History Smoking Status: Never smoker Drug Use: none Marital Status: Housing Status: lives with family Occupation: retired Laboratory Results Past 24 Hours 04/12/18 06:00 Test 04/11/18 11:38 04/11/18 16:57 04/11/18 20:41 04/12/18 06:00 Bedside Glucose 121 mg/dl (70-90) 172 mg/dl (70-90) 152 mg/dl (70-90) Anion Gap 8.0 mmol/L (3-11) Est Creatinine Clear Calc Drug Dose 9.1 ml/min Estimated GFR () 8.8 Estimated GFR (Non- 7.6 BUN/Creatinine Ratio 7.5 (10-20) Calcium Level 7.9 mg/dl (8.5-10.1) Test 04/12/18 07:38 Bedside Glucose 134 mg/dl (70-90) Allergies Coded Allergies: Adhesives (Verified Allergy, Severe, TAPE-REDNESS, BLISTERS, 03/19/18) Pneumococcal Vaccine (Verified Allergy, Severe, SHORTNESS OF BREATH, ) Metronidazole (Verified Allergy, Intermediate, skin rash, 03/19/18) allergic to generic form Phenazopyridine (Verified Allergy, Intermediate, abdominal pain/rash, ) Erythromycin (Verified Allergy, Mild, RASH, 03/19/18) Salicylates (Verified Allergy, Unknown, pt states rash with ASA 325 but not ASA 81mg, 03/19/18) Sulfa Antibiotics (Verified Allergy, Unknown, ON MED LIST, 03/19/18) Tetracycline (Verified Allergy, Unknown, RASH, 03/19/18) Morphine (Verified Adverse Reaction, Intermediate, urinary retention - oral morphine only, 03/19/18) Diltiazem (Verified Adverse Reaction, Mild, FLUID RETENTION, 03/19/18) Metoclopramide (Verified Adverse Reaction, Mild, TREMORS, 03/19/18) Bacitracin (Verified Adverse Reaction, Unknown, "MAKES IT WORSE"-OK IF NOT OTC MEDICATION, 03/19/18) OKAY IF NOT OVER THE COUNTER MEDICATION Medications Current Inpatient Medications Medications (Trade) Dose Ordered Sig/Natasha Route Start Time Stop Time Status Last Admin Dose Admin Acetaminophen (Tylenol Tab) 650 mg Q4H PRN PO 03/15/18 18:30 04/14/18 18:29 Future hold 04/11/18 05:28 650 MG Al Hydrox/Mg Hydrox/Simethicone (Maalox Max Susp) 15 ml Q4H PRN PO 03/15/18 18:30 04/14/18 18:29 Magnesium Hydroxide (Milk Of Magnesia Susp) 30 ml Q12H PRN PO 03/15/18 18:30 04/14/18 18:29 Ondansetron HCl (Zofran Inj) 4 mg Q6H PRN IV 03/15/18 18:30 04/14/18 18:29 Albuterol Sulfate (Ventolin 0.083% 2.5MG/3ML Neb) 2.5 mg Q4H PRN INH 03/15/18 18:30 04/14/18 18:29 04/09/18 19:37 2.5 MG Albuterol/ Ipratropium (Duoneb) 3 ml Q6R NEB 03/15/18 21:00 04/14/18 20:59 04/12/18 07:04 3 ML Citalopram Hydrobromide (celeXA TAB) 30 mg DAILY PO 03/16/18 09:00 04/15/18 08:59 Future hold 04/12/18 08:00 30 MG Diclofenac Sodium (Voltaren 1% Top Gel) 1 appln QID PRN EXT 03/15/18 19:30 04/14/18 19:29 04/06/18 23:49 1 APPLN Gabapentin (Neurontin Cap) 300 mg BID PO 03/15/18 21:00 04/14/18 20:59 Future hold 04/12/18 08:00 300 MG Levothyroxine Sodium (Synthroid Tab) 100 mcg DAILYBB PO 03/16/18 06:00 04/15/18 06:59 Future hold 04/12/18 05:28 100 MCG Nystatin (Mycostatin Powder) 1 appln TID EXT 03/15/18 21:00 04/14/18 20:59 04/12/18 08:01 1 APPLN Ropinirole HCl (Requip Tab) 0.5 mg HS PO 03/15/18 21:00 04/14/18 20:59 Future hold 04/11/18 20:26 0.5 MG Sucralfate (Carafate Susp) 1 gm QID PO 03/15/18 21:00 04/14/18 20:59 Future hold 04/12/18 08:00 1 GM Miscellaneous Information (Order Awaiting Action) 1 ea QS N/A 03/16/18 00:00 04/15/18 00:00 03/18/18 18:49 1 EA Glucose (Glucose 40% Gel) 15-30 GRAMS 15 GRAMS... UD PRN PO 03/15/18 19:00 04/14/18 18:59 Glucose (Glucose Chew Tab) 4-8 Tablets 4 Tabl... UD PRN PO 03/15/18 19:00 04/14/18 18:59 Dextrose (Dextrose 50% 50ML Syringe) 25-50ML 25ML FOR ... UD PRN IV 03/15/18 19:00 04/14/18 18:59 Glucagon (Glucagon Inj) 1 mg UD PRN SQ 03/15/18 19:00 04/14/18 18:59 Carbohydrates (Carbohydrates For Hypoglycemia) 15-30 GRAMS 15 grams if BSG 54-69... UD PRN PO 03/15/18 19:00 04/14/18 18:59 Heparin Sodium (Porcine) (Heparin 10 Unit/ ml 5 ml Flush) 5 ml PRN PRN FLUSH 03/20/18 00:30 04/19/18 00:29 04/12/18 06:00 5 ML Amiodarone HCl (Cordarone Tab) 200 mg DAILY PO 03/29/18 09:00 04/28/18 08:59 04/12/18 07:59 200 MG Non-Formulary Medication (Non-Formulary Patient'S Own Med) 1 ea DAILY PO 03/22/18 09:00 04/21/18 08:59 04/04/18 08:05 1 EA Senna (Senokot Tab) 17.2 mg HS PO 03/24/18 21:00 04/23/18 20:59 Future hold 04/11/18 20:27 17.2 MG Acetaminophen 100 ml @ 400 mls/hr Q8H PRN IV 03/25/18 15:45 04/24/18 15:44 04/08/18 19:36 400 MLS/HR Lorazepam (Ativan Inj) 0.5 mg Q6H PRN IV 03/27/18 18:15 04/26/18 18:14 03/31/18 03:54 0.5 MG Lorazepam 0.5 mg/ Syringe 1 ml @ 1 mls/min Q6H PRN IV 03/27/18 18:45 04/26/18 18:44 Metoclopramide HCl (Reglan Inj) 5 mg Q6H IV. 03/30/18 12:00 04/29/18 11:59 04/12/18 05:28 5 MG Insulin Aspart (novoLOG ASPART) SLIDING SCALE If C... ACHS SC 04/01/18 07:00 05/01/18 06:59 04/07/18 17:56 1 UNITS Prednisone (PredniSONE TAB) 20 mg QAM PO 04/02/18 09:00 05/01/18 08:59 04/12/18 08:00 20 MG Apixaban (Eliquis Tab) 2.5 mg BID PO 04/04/18 20:00 8/17/18 20:59 04/12/18 08:00 2.5 MG Enteral Nutritional Formula (Boost Plus Vanilla) 0.5 can QID PO 04/05/18 17:00 05/05/18 16:59 04/11/18 20:25 0.5 CAN Lansoprazole (Prevacid Solutab) 30 mg DAILY NG 04/07/18 09:30 05/07/18 09:29 04/12/18 08:00 30 MG Midodrine (Proamatine Tab) 2.5 mg TID@,,17 PRN PO 04/07/18 16:45 05/07/18 16:44 Multivitamins (Flintstones Complete Tab) 2 tab QAM PO 04/10/18 08:00 05/10/18 07:59 04/12/18 08:00 2 TAB Impression (1) MANJULA (acute kidney injury) (2) Pneumonia (3) MRSA (methicillin resistant staph aureus) culture positive (4) COPD exacerbation Karen Philip is a chronically ill and frail 83-year-old female with multiple comorbid medical conditions. 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 Karen is now being managed with tracheostomy and a chronic oxygen requirement. She has developed oliguric MANJULA consistent with ATN while being treated for multifocal MRSA pneumonia. MANJULA is consistent with ATN, possibly secondary to vancomycin nephrotoxicity. Vancomycin has been discontinued. Renal US did not show evidence of obstruction. UA is bland with acellular microscopy. Urine sodium excretion consistent with tubular injury. Recommendations -- Patient is now within the recovery phase of ATN. Creatinine is trending down and UO was > 1 L overnight. Electrolyte balance remains acceptable. Will continue to monitor. No acute indication for HD at this time. -- Monitor volume status, UO and electrolytes. -- Dialysis is likely to be complicated given multiple medical comorbidities. Continue supportive care. -- Due to debility and chronic lung disease, patient is unfortunately a poor long-term candidate for benefits from dialysis
--- NOTE | 2018-04-12 15:55 | Progress Note ---
Subjective Date of Service: Apr 12, 2018. Subjective this pt is more awake today, she has no focal complaints and is with some improved breathing Problem List Medical Problems: (1) Cervical strain Status: Acute (2) Contusion of multiple sites Status: Acute (3) COPD exacerbation Status: Acute (4) Fall Status: Acute (5) Fall from chair, initial encounter Status: Acute (6) Fatigue Status: Acute (7) Head injury Status: Acute (8) Head injury Status: Acute (9) Hip pain Status: Acute (10) Hypocalcemia Status: Acute (11) Hypoxia Status: Acute (12) Hypoxia Status: Acute (13) Lower extremity edema Status: Acute (14) PNA (pneumonia) Status: Acute (15) Pneumonia Status: Acute (16) Pneumonitis Status: Acute (17) Reactive airway disease Status: Acute (18) Right flank pain Status: Acute (19) Sepsis Status: Acute (20) Sepsis Status: Acute (21) Syncope Status: Acute (22) Traumatic compression fracture of third thoracic vertebra Status: Acute (23) Vaginal yeast infection Status: Acute (24) Weakness Status: Acute (25) Yeast vaginitis Status: Acute Review of Systems Respiratory: + dyspnea on exertion, No cough, No sputum, No wheezing, No shortness of breath Cardiac: No chest pain, No edema Abdomen: No pain, No nausea Musculoskeletal: No joint pain, No muscle pain Neurologic: No memory loss, No paralysis Psychiatric: No depression symptoms, No anhedonism, No anxiety Objective Vital Signs Date Time Temp Pulse Resp B/P (MAP) Pulse Ox O2 Delivery O2 Flow Rate FiO2 04/12/18 15:05 36.8 75 18 149/74 (99) 95 Trach Collar 6.0 04/12/18 14:05 78 14 94 Trach Collar 6.0 04/12/18 09:11 Trach Collar 04/12/18 07:31 36.6 80 20 152/82 (105) 98 Trach Collar 6.0 04/12/18 07:04 76 14 98 Trach Collar 6.0 04/12/18 02:05 74 16 96 Trach Collar 6.0 04/12/18 00:40 Trach Collar 04/11/18 23:01 37.0 80 16 139/71 (93) 97 Room Air 04/11/18 19:16 78 16 96 Trach Collar 6.0 04/11/18 16:30 95 Trach Collar 7.0 Physical Exam General Appearance: WD/WN, + mild distress Eyes: normal inspection, sclerae normal Neck: supple, no JVD Respiratory/Chest: + respiratory distress, + decreased breath sounds, + accessory muscle use Cardiovascular: regular rate, rhythm, no murmur Abdomen: normal bowel sounds, soft Extremities: no pedal edema, no calf tenderness Laboratory Results Last 24 Hours Test 04/11/18 16:57 04/11/18 20:41 04/12/18 06:00 04/12/18 07:38 Bedside Glucose 172 mg/dl 152 mg/dl 134 mg/dl Sodium Level 146 mmol/L Potassium Level 3.6 mmol/L Chloride Level 110 mmol/L Carbon Dioxide Level 28 mmol/L Anion Gap 8.0 mmol/L Blood Urea Nitrogen 37 mg/dl Creatinine 4.99 mg/dl Est Creatinine Clear Calc Drug Dose 9.1 ml/min Estimated GFR () 8.8 Estimated GFR (Non- 7.6 BUN/Creatinine Ratio 7.5 Random Glucose 115 mg/dl Calcium Level 7.9 mg/dl Test 04/12/18 11:30 Bedside Glucose 114 mg/dl Assessment and Plan 83 y/o female presents with right sided chest/abd pain and acute on Chronic Respiratory Failure with hypoxia, COPD, H/O DVTs, Hypothyroidism, T2DM, CKD Stage II/III, Diastolic CHF, and Elevated R Hemidiaphragm S/P Plication, she underwent tracheostomy, has feeding difficulties and resolving acute kidney injury from vancomycin Little changes in her care, following improving renal function, awaiting placement decision b/l pneumonia - 2nd to MRSA - completed 14 days of vanco. Patient has a trach due likely to her weight, large neck and cushinoid features causing airway obstruction. changed trach to uncuffed.Size 6. Vanco level was toxic at end of treatment. Vanco has been held since level became toxic. new-onset a. fib - converted to NSR earlier this stay with amiodarone. amiodarone along w/ eliquis. need to work on a bowel regimen, limited oral fiber intake also at play acute/chronic hypoxic respiratory failure - s/p trach placement. Acute component 2nd to pneumonia has resolved dysphagia - patient refusing permanent feeding tube. Speech re-evaluated her 03/30/18 w/ bedside swallow and patient placed back on thickened liquids. Tolerating such thus far. Allow [facility] soft diabetic diet as desired/tolerated, has had challenges meeting caloric intake. protein calorie malnutrition, moderate-severe degree - again she is refusing permanent feeding tube, offering oral feeds and supplements. . COPD with mild exacerbation - wean to prednisone is not recommended to decreasing to 10 mg given the risk that she may become hypotensive from adrenal insufficiency. H/O DVTs - noted; resumed eliquis. Acute on CKD stage 3 Consulted neprhology, resolving ATN, due to her lab tests. Hypothyroidism - compensated; cont synthroid. T2DM - controlled with insulin ssi. chronic diastolic CHF - compensated. In fact she has lost weight in the hospital. right-sided elevated Hemidiaphragm - S/P Plication in the past. depression - resumed SSRI. Consider titration and/or addition of additional medication. iron deficiency, pt has issues taking oral iron will have dose of iv iron and follow anemia especially since on anticoagulation. on prevacid soltab DVT proph - eliquis. RLS - requip. Continued [facility] stay due to: fever, inadequate po fluid intake, inadequate oral pain control, voiding difficulties, ambulation difficulties, multiple IV medications needed, other (ileus, pneumonia, etc) Discharge planning: uncertain
[2018-04-12] MEDS: SENNA 8.6 MG TAB PO SCH (20:21)
[2018-04-12] MEDS: ACETAMINOPHEN 325 MG TAB PO PRN (20:21)
[2018-04-12] MEDS: ROPINIROLE HCL 0.25 MG TAB PO SCH (20:21)
[2018-04-13] VITALS (8 sets, daily range): BP systolic 132–155; BP diastolic 70–81; PULSE 62–72; TEMP 36.4–36.5; O2SAT 95–99
[2018-04-13] MEDS: ALBUT/IPRATROP 3MG/0.5MG NEB 3 ML VIAL NEB SCH ×4 (01:46→19:09)
[2018-04-13] MEDS: METOCLOPRAMIDE HCL INJ 5 MG/ML 2 ML VIAL IV. SCH (06:16)
[2018-04-13] MEDS: LEVOTHYROXINE 100 MCG TAB PO SCH (06:17)
[2018-04-13] MEDS: BOOST PLUS VANILLA OR BOOST GLUCOSE CONTROL STRAWBERRY PO SCH ×4 (08:00→20:00)
[2018-04-13] MEDS: APIXABAN 2.5 MG TAB PO SCH ×2 (08:14→20:38)
[2018-04-13] MEDS: GABAPENTIN 300 MG CAP PO SCH (08:14)
[2018-04-13] MEDS: LANSOPRAZOLE SOLUTAB 30 MG NG SCH (08:14)
[2018-04-13] MEDS: FLINTSTONES COMPLETE CHEWABLE TAB PO SCH (08:14)
[2018-04-13] MEDS: SUCRALFATE 1 GM/10 ML UDC PO SCH (08:14)
[2018-04-13] MEDS: NYSTATIN POWDER 15GM BTL EXT SCH ×3 (08:15→20:08)
[2018-04-13] MEDS: INSULIN ASPART 100 UNITS/ML 3 ML PEN SC SCH ×4 (08:19→20:39)
[2018-04-13] MEDS ORDERED: NURSING VERBAL MED ORDER ONE (09:30)
[2018-04-13 09:42] LABS: CALCIUM 7.6 mg/dl (8.5-10.1); CREATININE 3.94 mg/dl (0.60-1.20)
--- NOTE | 2018-04-13 09:44 | Nephrology Progress Note ---
Nephrology Progress Note Date of Service Apr 13, 2018. Chief Complaint MANJULA Subjective Ms. Philip was seen & examined in her hospital room this morning. She awakens to voice and will nod her head in response to yes/no questions. She appears to be breathing comfortably on her trach collar at 8 L / min. Review of Systems Unable to participate in ROS Vital Signs Last 8 Hrs Date Time Temp Pulse Resp B/P (MAP) Pulse Ox O2 Delivery O2 Flow Rate FiO2 04/13/18 07:53 36.4 67 18 134/79 (97) 95 Trach Collar 8.0 04/13/18 07:15 62 16 96 Trach Collar 8.0 28 04/13/18 01:46 66 16 97 Trach Collar 8.0 28 Last Recorded Weight Weight (Kilograms): 90.800 Physical Exam General Appearance: + pertinent finding (chronically ill appearing) Head: atraumatic Eyes: PERRL, EOMI Neck: no adenopathy Respiratory/Chest: lungs clear (anteriorly) Cardiovascular: regular rate, rhythm Abdomen/GI: normal bowel sounds, non tender, soft Genitourinary - Female: + pertinent finding (christian catheter in place. 500 cc yellow urine in collection bag) Extremities/Musculoskelatal: no calf tenderness, no pedal edema Neurologic/Psych: + pertinent finding (awakens to voice. ) Family History Diabetes mellitus FH: cancer FH: gallbladder disease FH: heart disease FH: lung disease Hypertension Kidney disease or stones Social History Smoking Status: Never smoker Drug Use: none Marital Status: Housing Status: lives with family Occupation: retired Laboratory Results Past 24 Hours Test 04/12/18 11:30 04/12/18 16:39 04/12/18 20:00 04/13/18 07:39 Bedside Glucose 114 mg/dl (70-90) 169 mg/dl (70-90) 164 mg/dl (70-90) 91 mg/dl (70-90) Test 04/13/18 09:07 Allergies Coded Allergies: Adhesives (Verified Allergy, Severe, TAPE-REDNESS, BLISTERS, 03/19/18) Pneumococcal Vaccine (Verified Allergy, Severe, SHORTNESS OF BREATH, ) Metronidazole (Verified Allergy, Intermediate, skin rash, 03/19/18) allergic to generic form Phenazopyridine (Verified Allergy, Intermediate, abdominal pain/rash, ) Erythromycin (Verified Allergy, Mild, RASH, 03/19/18) Salicylates (Verified Allergy, Unknown, pt states rash with ASA 325 but not ASA 81mg, 03/19/18) Sulfa Antibiotics (Verified Allergy, Unknown, ON MED LIST, 03/19/18) Tetracycline (Verified Allergy, Unknown, RASH, 03/19/18) Morphine (Verified Adverse Reaction, Intermediate, urinary retention - oral morphine only, 03/19/18) Diltiazem (Verified Adverse Reaction, Mild, FLUID RETENTION, 03/19/18) Metoclopramide (Verified Adverse Reaction, Mild, TREMORS, 03/19/18) Bacitracin (Verified Adverse Reaction, Unknown, "MAKES IT WORSE"-OK IF NOT OTC MEDICATION, 03/19/18) OKAY IF NOT OVER THE COUNTER MEDICATION Medications Current Inpatient Medications Medications (Trade) Dose Ordered Sig/Natasha Route Start Time Stop Time Status Last Admin Dose Admin Acetaminophen (Tylenol Tab) 650 mg Q4H PRN PO 03/15/18 18:30 04/14/18 18:29 Future hold 04/12/18 20:21 650 MG Al Hydrox/Mg Hydrox/Simethicone (Maalox Max Susp) 15 ml Q4H PRN PO 03/15/18 18:30 04/14/18 18:29 Magnesium Hydroxide (Milk Of Magnesia Susp) 30 ml Q12H PRN PO 03/15/18 18:30 04/14/18 18:29 Ondansetron HCl (Zofran Inj) 4 mg Q6H PRN IV 03/15/18 18:30 04/14/18 18:29 Albuterol Sulfate (Ventolin 0.083% 2.5MG/3ML Neb) 2.5 mg Q4H PRN INH 03/15/18 18:30 04/14/18 18:29 04/09/18 19:37 2.5 MG Albuterol/ Ipratropium (Duoneb) 3 ml Q6R NEB 03/15/18 21:00 04/14/18 20:59 04/13/18 07:15 3 ML Citalopram Hydrobromide (celeXA TAB) 30 mg DAILY PO 03/16/18 09:00 04/15/18 08:59 Future hold 04/12/18 08:00 30 MG Diclofenac Sodium (Voltaren 1% Top Gel) 1 appln QID PRN EXT 03/15/18 19:30 04/14/18 19:29 04/06/18 23:49 1 APPLN Gabapentin (Neurontin Cap) 300 mg BID PO 03/15/18 21:00 04/14/18 20:59 Future hold 04/13/18 08:14 300 MG Levothyroxine Sodium (Synthroid Tab) 100 mcg DAILYBB PO 03/16/18 06:00 04/15/18 06:59 Future hold 04/13/18 06:17 100 MCG Nystatin (Mycostatin Powder) 1 appln TID EXT 03/15/18 21:00 04/14/18 20:59 04/13/18 08:15 1 APPLN Ropinirole HCl (Requip Tab) 0.5 mg HS PO 03/15/18 21:00 04/14/18 20:59 Future hold 04/12/18 20:21 0.5 MG Sucralfate (Carafate Susp) 1 gm QID PO 03/15/18 21:00 04/14/18 20:59 Future hold 04/13/18 08:14 1 GM Miscellaneous Information (Order Awaiting Action) 1 ea QS N/A 03/16/18 00:00 04/15/18 00:00 03/18/18 18:49 1 EA Glucose (Glucose 40% Gel) 15-30 GRAMS 15 GRAMS... UD PRN PO 03/15/18 19:00 04/14/18 18:59 Glucose (Glucose Chew Tab) 4-8 Tablets 4 Tabl... UD PRN PO 03/15/18 19:00 04/14/18 18:59 Dextrose (Dextrose 50% 50ML Syringe) 25-50ML 25ML FOR ... UD PRN IV 03/15/18 19:00 04/14/18 18:59 Glucagon (Glucagon Inj) 1 mg UD PRN SQ 03/15/18 19:00 04/14/18 18:59 Carbohydrates (Carbohydrates For Hypoglycemia) 15-30 GRAMS 15 grams if BSG 54-69... UD PRN PO 03/15/18 19:00 04/14/18 18:59 Heparin Sodium (Porcine) (Heparin 10 Unit/ ml 5 ml Flush) 5 ml PRN PRN FLUSH 03/20/18 00:30 04/19/18 00:29 04/13/18 08:24 5 ML Amiodarone HCl (Cordarone Tab) 200 mg DAILY PO 03/29/18 09:00 04/28/18 08:59 04/12/18 07:59 200 MG Non-Formulary Medication (Non-Formulary Patient'S Own Med) 1 ea DAILY PO 03/22/18 09:00 04/21/18 08:59 04/04/18 08:05 1 EA Senna (Senokot Tab) 17.2 mg HS PO 03/24/18 21:00 04/23/18 20:59 Future hold 04/12/18 20:21 17.2 MG Acetaminophen 100 ml @ 400 mls/hr Q8H PRN IV 03/25/18 15:45 04/24/18 15:44 04/08/18 19:36 400 MLS/HR Lorazepam (Ativan Inj) 0.5 mg Q6H PRN IV 03/27/18 18:15 04/26/18 18:14 03/31/18 03:54 0.5 MG Lorazepam 0.5 mg/ Syringe 1 ml @ 1 mls/min Q6H PRN IV 03/27/18 18:45 04/26/18 18:44 Metoclopramide HCl (Reglan Inj) 5 mg Q6H IV. 03/30/18 12:00 04/29/18 11:59 04/13/18 06:16 5 MG Insulin Aspart (novoLOG ASPART) SLIDING SCALE If C... ACHS SC 04/01/18 07:00 05/01/18 06:59 04/07/18 17:56 1 UNITS Prednisone (PredniSONE TAB) 20 mg QAM PO 04/02/18 09:00 05/01/18 08:59 04/12/18 08:00 20 MG Apixaban (Eliquis Tab) 2.5 mg BID PO 04/04/18 20:00 05/04/18 20:59 04/13/18 08:14 2.5 MG Enteral Nutritional Formula (Boost Plus Vanilla) 0.5 can QID PO 04/05/18 17:00 05/05/18 16:59 04/11/18 20:25 0.5 CAN Lansoprazole (Prevacid Solutab) 30 mg DAILY NG 04/07/18 09:30 05/07/18 09:29 04/13/18 08:14 30 MG Midodrine (Proamatine Tab) 2.5 mg TID@08,12,17 PRN PO 04/07/18 16:45 05/07/18 16:44 Multivitamins (Flintstones Complete Tab) 2 tab QAM PO 04/10/18 08:00 05/10/18 07:59 04/13/18 08:14 2 TAB Impression (1) MANJULA (acute kidney injury) (2) Pneumonia (3) MRSA (methicillin resistant staph aureus) culture positive (4) COPD exacerbation Ms. Philip is a frail 83-year-old female with multiple comorbid medical conditions. 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 Karen is now being managed with tracheostomy and a chronic oxygen requirement. She has developed oliguric MANJULA consistent with ATN while being treated for multifocal MRSA pneumonia. MANJULA is consistent with ATN, possibly secondary to vancomycin nephrotoxicity. Vancomycin has been discontinued. Renal US did not show evidence of obstruction. UA is bland with acellular microscopy. Urine sodium excretion consistent with tubular injury. Recommendations -- Patient remains within the recovery phase of ATN. Creatinine has improved from 4.9 to 3.9 overnight and UO was > 1 L overnight. Electrolyte balance remains acceptable. Will continue to monitor. No acute indication for HD at this time. -- Monitor volume status, UO and electrolytes. -- Dialysis is likely to be complicated given multiple medical comorbidities. Continue supportive care. -- Due to debility and chronic lung disease, patient is unfortunately a poor long-term candidate for benefits from dialysis
[2018-04-13] MEDS: CITALOPRAM 20 MG TAB PO SCH (09:48)
[2018-04-13] MEDS: AMIODARONE 200 MG TAB PO SCH (09:48)
[2018-04-13] MEDS ORDERED: ALTEPLASE, RECOMBINANT 1 MG/ML 2 ML VIAL IV ONE (10:15)
--- NOTE | 2018-04-13 16:26 | Progress Note ---
Subjective Date of Service: Apr 13, 2018. Subjective this pt is awake but lethargic, she is agreeable rehab at this time Problem List Medical Problems: (1) Cervical strain Status: Acute (2) Contusion of multiple sites Status: Acute (3) COPD exacerbation Status: Acute (4) Fall Status: Acute (5) Fall from chair, initial encounter Status: Acute (6) Fatigue Status: Acute (7) Head injury Status: Acute (8) Head injury Status: Acute (9) Hip pain Status: Acute (10) Hypocalcemia Status: Acute (11) Hypoxia Status: Acute (12) Hypoxia Status: Acute (13) Lower extremity edema Status: Acute (14) PNA (pneumonia) Status: Acute (15) Pneumonia Status: Acute (16) Pneumonitis Status: Acute (17) Reactive airway disease Status: Acute (18) Right flank pain Status: Acute (19) Sepsis Status: Acute (20) Sepsis Status: Acute (21) Syncope Status: Acute (22) Traumatic compression fracture of third thoracic vertebra Status: Acute (23) Vaginal yeast infection Status: Acute (24) Weakness Status: Acute (25) Yeast vaginitis Status: Acute Review of Systems Constitutional: No fever, No chills, No weakness, No fatigue Respiratory: No cough, No wheezing Cardiac: No chest pain, No PND, No edema Abdomen: No pain, No nausea, No vomiting Female : No dysuria, No urinary frequency, No hematuria Psychiatric: No depression symptoms, No anhedonism Objective Vital Signs Date Time Temp Pulse Resp B/P (MAP) Pulse Ox O2 Delivery O2 Flow Rate FiO2 04/13/18 15:21 36.4 66 20 132/70 (90) 96 Trach Collar 8.0 04/13/18 14:17 68 16 96 Trach Collar 8.0 04/13/18 09:00 Trach Collar 04/13/18 07:53 36.4 67 18 134/79 (97) 95 Trach Collar 8.0 04/13/18 07:15 62 16 96 Trach Collar 8.0 04/13/18 01:46 66 16 97 Trach Collar 8.0 04/12/18 23:43 36.7 70 16 160/74 (102) 95 Trach Collar 04/12/18 21:30 Trach Collar 04/12/18 19:36 64 14 94 Trach Collar 6.0 28 Physical Exam General Appearance: WD/WN, + mild distress Eyes: normal inspection, sclerae normal Neck: supple, no JVD Respiratory/Chest: chest non-tender, lungs clear, normal breath sounds Cardiovascular: regular rate, rhythm, no murmur Abdomen: normal bowel sounds, soft Extremities: no calf tenderness, + pedal edema Neurologic/Psychiatric: alert, + depressed affect Laboratory Results Last 24 Hours Test 04/12/18 16:39 04/12/18 20:00 04/13/18 07:39 04/13/18 09:07 Bedside Glucose 169 mg/dl 164 mg/dl 91 mg/dl Sodium Level 147 mmol/L Potassium Level 4.0 mmol/L Chloride Level 112 mmol/L Carbon Dioxide Level 26 mmol/L Anion Gap 9.0 mmol/L Blood Urea Nitrogen 36 mg/dl Creatinine 3.94 mg/dl Est Creatinine Clear Calc Drug Dose 11.7 ml/min Estimated GFR () 11.7 Estimated GFR (Non- 10.1 BUN/Creatinine Ratio 9.1 Random Glucose 81 mg/dl Calcium Level 7.6 mg/dl Chemistry Specimen Hemolysis Test 04/13/18 11:57 Bedside Glucose 93 mg/dl Assessment and Plan 83 y/o female presents with right sided chest/abd pain and acute on Chronic Respiratory Failure with hypoxia, COPD, H/O DVTs, Hypothyroidism, T2DM, CKD Stage II/III, Diastolic CHF, and Elevated R Hemidiaphragm S/P Plication, she underwent tracheostomy, has feeding difficulties and resolving acute kidney injury from vancomycin Little changes in her care, following continued improvement in renal function, awaiting placement decision b/l pneumonia - 2nd to MRSA - completed 14 days of vanco. Patient has a trach due likely to her weight, large neck and cushingoid features causing airway obstruction. changed trach to uncuffed.Size 6. Vanco level was toxic at end of treatment. Vanco has been held since level became toxic. new-onset a. fib - converted to NSR earlier this stay with amiodarone. amiodarone along w/ eliquis. need to work on a bowel regimen, limited oral fiber intake also at play acute/chronic hypoxic respiratory failure - s/p trach placement. Acute component 2nd to pneumonia has resolved dysphagia - patient refusing permanent feeding tube. Speech re-evaluated her 03/30/18 w/ bedside swallow and patient placed back on thickened liquids. Tolerating such thus far. Allow [facility] soft diabetic diet as desired/tolerated, has had challenges meeting caloric intake. protein calorie malnutrition, moderate-severe degree - again she is refusing permanent feeding tube, offering oral feeds and supplements. . COPD with mild exacerbation - wean to prednisone is not recommended to decreasing to 10 mg given the risk that she may become hypotensive from adrenal insufficiency. H/O DVTs - noted; resumed eliquis. Acute on CKD stage 3 Consulted neprhology, resolving ATN, due to her lab tests. Hypothyroidism - compensated; cont synthroid. T2DM - controlled with insulin ssi. chronic diastolic CHF - compensated. In fact she has lost weight in the hospital. right-sided elevated Hemidiaphragm - S/P Plication in the past. depression - resumed SSRI. Consider titration and/or addition of additional medication. iron deficiency, pt has issues taking oral iron will have dose of iv iron and follow anemia especially since on anticoagulation. on prevacid soltab DVT proph - eliquis. RLS - requip. Continued [facility] stay due to: fever, inadequate po fluid intake, inadequate oral pain control, voiding difficulties, ambulation difficulties, multiple IV medications needed, other (ileus, pneumonia, etc) Discharge planning: uncertain
[2018-04-13] MEDS: ACETAMINOPHEN 325 MG TAB PO PRN (16:58)
[2018-04-13] MEDS: ROPINIROLE HCL 0.25 MG TAB PO SCH (20:38)
[2018-04-13] MEDS: SENNA 8.6 MG TAB PO SCH (20:38)
[2018-04-13] MEDS ORDERED: GABAPENTIN 300 MG CAP PO SCH (21:00)
[2018-04-14] VITALS (8 sets, daily range): BP systolic 132–147; BP diastolic 72–81; PULSE 60–90; TEMP 36.5–36.8; O2SAT 93–98
[2018-04-14] MEDS: ALBUT/IPRATROP 3MG/0.5MG NEB 3 ML VIAL NEB SCH ×4 (01:41→18:44)
[2018-04-14] MEDS: LEVOTHYROXINE 100 MCG TAB PO SCH (06:24)
[2018-04-14 06:32] LABS: HEMATOCRIT 29.2 % (37-47); HEMOGLOBIN 9.1 g/dL (12.0-16.0); MEAN CELL VOLUME 95.7 fL (80-100); MEAN CORPUSCULAR HEMOGLOBIN 29.8 pg (25-34); MEAN CORPUSCULAR HGB CONC 31.2 g/dl (32-36); MEAN PLATELET VOLUME 9.7 fL (7.4-10.4); PLATELET COUNT 187 K/uL (130-400); RED CELL DISTRIBUTION WIDTH CV 15.9 % (11.5-14.5); RED CELL DISTRIBUTION WIDTH SD 55.7 fL (36.4-46.3); WHITE BLOOD COUNT 4.17 K/uL (4.8-10.8)
[2018-04-14 07:07] LABS: CALCIUM 7.2 mg/dl (8.5-10.1); CREATININE 3.28 mg/dl (0.60-1.20)
[2018-04-14] MEDS: NYSTATIN POWDER 15GM BTL EXT SCH ×3 (07:40→21:18)
[2018-04-14] MEDS: CITALOPRAM 20 MG TAB PO SCH (07:41)
[2018-04-14] MEDS: MULTIVITAMINS W/MINERALS 15ML UDP PO SCH (07:42)
[2018-04-14] MEDS: AMIODARONE 200 MG TAB PO SCH (07:43)
[2018-04-14] MEDS: LANSOPRAZOLE SOLUTAB 30 MG NG SCH (07:44)
[2018-04-14] MEDS: APIXABAN 2.5 MG TAB PO SCH ×2 (07:44→21:32)
[2018-04-14] MEDS: BOOST PLUS VANILLA OR BOOST GLUCOSE CONTROL STRAWBERRY PO SCH ×4 (08:03→20:00)
[2018-04-14] MEDS: INSULIN ASPART 100 UNITS/ML 3 ML PEN SC SCH ×4 (09:09→21:00)
[2018-04-14] MEDS ORDERED: POTASSIUM CHLORIDE 20 MEQ/15 ML UDC PO STA (09:26)
--- NOTE | 2018-04-14 09:35 | Nephrology Progress Note ---
Nephrology Progress Note Date of Service Apr 14, 2018. Chief Complaint f/u for MANJULA, Hypokalemia, hypernatremia Subjective Karen was seen and examined in her room this am. overall clinically stable, but lethergic. Opens eyes and responds minimally. PO intake has been poor. Renal function improving, recovery phase of ATN, net negative with hypokalemia and hypoalbuminemia. Review of Systems A complete review of systems was performed. Pertinent positives are noted above. All other systems are negative. Vital Signs Last 8 Hrs Date Time Temp Pulse Resp B/P (MAP) Pulse Ox O2 Delivery O2 Flow Rate FiO2 04/14/18 07:27 60 16 98 Trach Collar 8.0 28 04/14/18 01:41 68 16 96 Trach Collar 8.0 28 Last Recorded Weight Weight (Kilograms): 85.100 Physical Exam GENERAL: Elderly female , AAA x 3, ill-appearing, not in any distress, responds minimally. Head and NECK: Supple, face puffy, trach collar in place RESPIRATORY: Normal breathing efforts, no accessory muscle use, clear to auscultation bilaterally, no wheezes or rales. CARDIOVASCULAR: S1, S2 normal, rate rhythm regular. EXTREMITY: No lower extremity edema, b/l upper extremity edema NEURO: moves extremities Family History Diabetes mellitus FH: cancer FH: gallbladder disease FH: heart disease FH: lung disease Hypertension Kidney disease or stones Social History Smoking Status: Never smoker Drug Use: none Marital Status: Housing Status: lives with family Occupation: retired Laboratory Results Past 24 Hours 04/14/18 05:50 04/14/18 05:50 Test 04/13/18 11:57 04/13/18 17:03 04/13/18 20:13 04/14/18 05:50 Bedside Glucose 93 mg/dl (70-90) 134 mg/dl (70-90) 148 mg/dl (70-90) Red Blood Count 3.05 M/uL (4.2-5.4) Mean Corpuscular Volume 95.7 fL (80-100) Mean Corpuscular Hemoglobin 29.8 pg (25-34) Mean Corpuscular Hemoglobin Concent 31.2 g/dl (32-36) RDW Standard Deviation 55.7 fL (36.4-46.3) RDW Coefficient of Variation 15.9 % (11.5-14.5) Mean Platelet Volume 9.7 fL (7.4-10.4) Anion Gap 9.0 mmol/L (3-11) Est Creatinine Clear Calc Drug Dose 13.6 ml/min Estimated GFR () 14.6 Estimated GFR (Non- 12.6 BUN/Creatinine Ratio 9.6 (10-20) Calcium Level 7.2 mg/dl (8.5-10.1) Test 04/14/18 07:54 Bedside Glucose 90 mg/dl (70-90) Allergies Coded Allergies: Adhesives (Verified Allergy, Severe, TAPE-REDNESS, BLISTERS, 03/19/18) Pneumococcal Vaccine (Verified Allergy, Severe, SHORTNESS OF BREATH, ) Metronidazole (Verified Allergy, Intermediate, skin rash, 03/19/18) allergic to generic form Phenazopyridine (Verified Allergy, Intermediate, abdominal pain/rash, ) Erythromycin (Verified Allergy, Mild, RASH, 03/19/18) Salicylates (Verified Allergy, Unknown, pt states rash with ASA 325 but not ASA 81mg, 03/19/18) Sulfa Antibiotics (Verified Allergy, Unknown, ON MED LIST, 03/19/18) Tetracycline (Verified Allergy, Unknown, RASH, 03/19/18) Morphine (Verified Adverse Reaction, Intermediate, urinary retention - oral morphine only, 03/19/18) Diltiazem (Verified Adverse Reaction, Mild, FLUID RETENTION, 03/19/18) Metoclopramide (Verified Adverse Reaction, Mild, TREMORS, 03/19/18) Bacitracin (Verified Adverse Reaction, Unknown, "MAKES IT WORSE"-OK IF NOT OTC MEDICATION, 03/19/18) OKAY IF NOT OVER THE COUNTER MEDICATION Medications Current Inpatient Medications Medications (Trade) Dose Ordered Sig/Natasha Route Start Time Stop Time Status Last Admin Dose Admin Acetaminophen (Tylenol Tab) 650 mg Q4H PRN PO 03/15/18 18:30 04/14/18 18:29 Future hold 04/13/18 16:58 650 MG Al Hydrox/Mg Hydrox/Simethicone (Maalox Max Susp) 15 ml Q4H PRN PO 03/15/18 18:30 04/14/18 18:29 Magnesium Hydroxide (Milk Of Magnesia Susp) 30 ml Q12H PRN PO 03/15/18 18:30 04/14/18 18:29 Ondansetron HCl (Zofran Inj) 4 mg Q6H PRN IV 03/15/18 18:30 04/14/18 18:29 Albuterol Sulfate (Ventolin 0.083% 2.5MG/3ML Neb) 2.5 mg Q4H PRN INH 03/15/18 18:30 04/14/18 18:29 04/09/18 19:37 2.5 MG Albuterol/ Ipratropium (Duoneb) 3 ml Q6R NEB 03/15/18 21:00 04/14/18 20:59 04/14/18 07:21 3 ML Citalopram Hydrobromide (celeXA TAB) 30 mg DAILY PO 03/16/18 09:00 04/15/18 08:59 Future hold 04/14/18 07:41 30 MG Diclofenac Sodium (Voltaren 1% Top Gel) 1 appln QID PRN EXT 03/15/18 19:30 04/14/18 19:29 04/06/18 23:49 1 APPLN Levothyroxine Sodium (Synthroid Tab) 100 mcg DAILYBB PO 03/16/18 06:00 04/15/18 06:59 Future hold 04/14/18 06:24 100 MCG Nystatin (Mycostatin Powder) 1 appln TID EXT 03/15/18 21:00 04/14/18 20:59 04/14/18 07:40 1 APPLN Ropinirole HCl (Requip Tab) 0.5 mg HS PO 03/15/18 21:00 04/14/18 20:59 Future hold 04/13/18 20:38 0.5 MG Miscellaneous Information (Order Awaiting Action) 1 ea QS N/A 03/16/18 00:00 04/15/18 00:00 03/18/18 18:49 1 EA Glucose (Glucose 40% Gel) 15-30 GRAMS 15 GRAMS... UD PRN PO 03/15/18 19:00 04/14/18 18:59 Glucose (Glucose Chew Tab) 4-8 Tablets 4 Tabl... UD PRN PO 03/15/18 19:00 04/14/18 18:59 Dextrose (Dextrose 50% 50ML Syringe) 25-50ML 25ML FOR ... UD PRN IV 03/15/18 19:00 04/14/18 18:59 Glucagon (Glucagon Inj) 1 mg UD PRN SQ 03/15/18 19:00 04/14/18 18:59 Carbohydrates (Carbohydrates For Hypoglycemia) 15-30 GRAMS 15 grams if BSG 54-69... UD PRN PO 03/15/18 19:00 04/14/18 18:59 Heparin Sodium (Porcine) (Heparin 10 Unit/ ml 5 ml Flush) 5 ml PRN PRN FLUSH 03/20/18 00:30 04/19/18 00:29 04/14/18 05:48 5 ML Amiodarone HCl (Cordarone Tab) 200 mg DAILY PO 03/29/18 09:00 04/28/18 08:59 04/14/18 07:43 200 MG Non-Formulary Medication (Non-Formulary Patient'S Own Med) 1 ea DAILY PO 03/22/18 09:00 04/21/18 08:59 04/04/18 08:05 1 EA Senna (Senokot Tab) 17.2 mg HS PO 03/24/18 21:00 04/23/18 20:59 Future hold 04/13/18 20:38 17.2 MG Acetaminophen 100 ml @ 400 mls/hr Q8H PRN IV 03/25/18 15:45 04/24/18 15:44 04/08/18 19:36 400 MLS/HR Lorazepam (Ativan Inj) 0.5 mg Q6H PRN IV 03/27/18 18:15 04/26/18 18:14 03/31/18 03:54 0.5 MG Lorazepam 0.5 mg/ Syringe 1 ml @ 1 mls/min Q6H PRN IV 03/27/18 18:45 04/26/18 18:44 Insulin Aspart (novoLOG ASPART) SLIDING SCALE If C... ACHS SC 04/01/18 07:00 05/01/18 06:59 04/07/18 17:56 1 UNITS Prednisone (PredniSONE TAB) 20 mg QAM PO 04/02/18 09:00 05/01/18 08:59 04/14/18 07:43 20 MG Apixaban (Eliquis Tab) 2.5 mg BID PO 04/04/18 20:00 8/17/18 20:59 04/14/18 07:44 2.5 MG Enteral Nutritional Formula (Boost Plus Vanilla) 0.5 can QID PO 04/05/18 17:00 05/05/18 16:59 04/14/18 08:03 0.5 CAN Lansoprazole (Prevacid Solutab) 30 mg DAILY NG 04/07/18 09:30 05/07/18 09:29 04/14/18 07:44 30 MG Gabapentin (Neurontin Cap) 300 mg HS PO 04/13/18 21:00 04/14/18 20:59 04/13/18 20:38 300 MG Multivitamins Therapeutic (Cerovite Liquid) 15 ml QAM PO 04/14/18 08:00 05/14/18 07:59 04/14/18 07:42 15 ML Impression (1) MANJULA (acute kidney injury) (2) Pneumonia (3) MRSA (methicillin resistant staph aureus) culture positive (4) COPD exacerbation Ms. Philip is a frail 83-year-old female with multiple comorbid medical conditions. 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 Karen is now being managed with tracheostomy and a chronic oxygen requirement. She has developed oliguric MANJULA consistent with ATN while being treated for multifocal MRSA pneumonia. MANJULA is consistent with ATN, possibly secondary to vancomycin nephrotoxicity. Vancomycin has been discontinued. Renal US did not show evidence of obstruction. UA is bland with acellular microscopy. Urine sodium excretion consistent with tubular injury. Recommendations -- Patient remains within the recovery phase of ATN. Creatinine has improved from 4.9 to 3.3, net negative daily, became hypokalemic and hypernatremic with free water deficit with auto diuresis --since patient's p.o. intake remained extremely poor, start on D5 water at 75 with 40 of KCl --extra dose of KCl 40 mEq El elixir x1 dose -- Monitor volume status, UO and electrolytes. -- Due to debility and chronic lung disease, patient is unfortunately a poor long-term candidate for benefits from dialysis, although renal function seems to be improving, overall prognosis remains poor.
[2018-04-14] MEDS ORDERED: POTASSIUM CHLORIDE 20 MEQ/15 ML UDC PO SCH (09:45)
[2018-04-14] MEDS ORDERED: IRON SUCROSE INJ 100 MG in SODIUM CHLORIDE 0.9% 100ML 100 ML IV SCH (11:00)
[2018-04-14] MEDS: POTASSIUM CHLORIDE INJ 40 MEQ in DEXTROSE 5% 1000ML 1,000 ML IV SCH (11:03)
[2018-04-14] MEDS ORDERED: MIDODRINE 2.5 MG TAB PO PRN (13:30)
--- NOTE | 2018-04-14 14:26 | Pulmonology Progress Note ---
Pulmonary Progress Note Date of Service Apr 14, 2018. Attending Dr. Khalil Subjective Patient is lying in bed notes continued fatigue but does note slow but steady improvement overall respiratory status since admission. She also notes increasing strength in her voice since the time of the tracheostomy. Objective Patient was awake and interacting with the nursing staff and I walked in. We had a long conversation and she showed no signs of respiratory insufficiency. PmHx: Pulmonary embolism, sleep apnea/OHV, COPD, oxygen dependent 2-5L, diaphragmatic insufficiency/status post fundoplication, steroid-induced myopathy , orthostatic hypotension, hypertension, sclerotic aortic valve, chronic lymphedema, paroxysmal atrial fibrillation, chronic shortness of breath, C diff positive, recurrent UTIs, status post tracheostomy 03/23/2018 Vital Signs/Physical Exam: SaO2: 93-98% on Venti-mask: 28% Tmax: 36.5 Neck: Well-healed ostomy with size 6 uncuffed Tracheostomy: Mild mucus secretions from the inner cannula easily suction cleared Respiratory: Minimal rhonchi appreciated the bases Cardiac: S1-S2 Abdomen: Positive bowel sounds soft non-tender to deep palpation Respiratory Medications: 1. Lisinopril 30 mg 2. Eliquis 2.5 mg b.i.d. 3. Prednisone 20 mg 4. Amiodarone 200 mg q.d. 5. DuoNeb q.6 hours 6. Ventolin nebulizer Q 4 p.r.n. Microbiology URINE: (07/24/15) Escherichia coli (09/01/15) Enterococcus faecalis (12/08/15) Lactobacillus species (11/25/16) Citrobacter species (07/07/17) Escherichia coli (07/24/17) Escherichia coli (03/20/18) Rabia Glabrata Respiratory Bronchial washing (06/29/2010) MRSA Bronchial washing left upper lobe (01/25/16) Fungal Species Right lower lobe bronchial washing (06/30/16) Fungal Species Bronchial washing right middle lobe (11/28/16) MRSA Bronchial washing right middle (01/15/17) Fungal Species Bronchial washing right and left lower lobe (10/09/2017) Bordetella Bronchiseptica Tracheal Aspirate (03/24/18): MRSA Blood (04/24/16) Propionibacterium acnes Skin (04/17/17) right lower extremity: Pseudomonas aeruginosa, Enterococcus faecalis Stool C. difficile testing for 06/07/2018: Positive Oximetry report 03/24/2018: Max single time <88%: 68 mins Patient initially admitted 03/15/2018 with atrial fibrillation currently controlled with amiodarone who underwent tracheostomy on 03/23/2018 for chronic respiratory insufficiency/failure. Patient also acquired MRSA pneumonia was treated with vancomycin and had ATN/AKA slowly resolving. Assessment & Plan 83-year-old female with chronic respiratory insufficiency with complicated hospital course: Atrial fibrillation, tracheostomy, MRSA pneumonia, AKA/ATN: 1. Respiratory: Patient has chronic respiratory insufficiency currently doing well on trach collar at 28 %. At this time I would like to continue aggressive pulmonary toilet and perform a nocturnal desaturation study as the patient's initial oximetry study performed 03/24/2018 during this admission showed approximately 68 minutes in a row with a saturation less than 88%. Plan: 1. Antibiotic per infectious disease. Adjust the dose of vancomycin as her level is 39 which is toxic. 2. Continue with prednisone 20 mg p.o. daily. 3. Advance oral intake as tolerated. Likely she will continue to be on soft diet. Her oral intake is inadequate which reflected in the elevation in her BUN /creatinine. 4. Continue DuoNeb. 5. Continue Reglan before meals and at bedtime. 6. Palliative care consult. 7. Patient is DNR. 8. Tracheostomy tube is planned to be changed by Dr. Velazquez on 04/06/2018. Preferably non-cuffed trach tube. The patient does not need to go on the ventilator overnight. She corrected her space just by using a trach mask. 9. New onset AK I, start the patient on IV fluids, check BMP in the morning. 10. No need to use the BiPAP via the ventilator and a trach tube, it is a demand mode when it is used through an ET tube or trach tube. No need for BiPAP via mask either. Keep the patient on trach mask on 10/04 basis. 11. Evaluation for acute renal failure, although I believe it is prerenal. Discussed with the staff at the bedside. Thank you, will follow. Data Medications: Current Inpatient Medications Medications (Trade) Dose Ordered Sig/Natasha Route Start Time Stop Time Status Last Admin Dose Admin Acetaminophen (Tylenol Tab) 650 mg Q4H PRN PO 03/15/18 18:30 04/14/18 18:29 Future hold 04/13/18 16:58 650 MG Al Hydrox/Mg Hydrox/Simethicone (Maalox Max Susp) 15 ml Q4H PRN PO 03/15/18 18:30 04/14/18 18:29 Magnesium Hydroxide (Milk Of Magnesia Susp) 30 ml Q12H PRN PO 03/15/18 18:30 04/14/18 18:29 Ondansetron HCl (Zofran Inj) 4 mg Q6H PRN IV 03/15/18 18:30 04/14/18 18:29 Albuterol Sulfate (Ventolin 0.083% 2.5MG/3ML Neb) 2.5 mg Q4H PRN INH 03/15/18 18:30 04/14/18 18:29 04/09/18 19:37 2.5 MG Albuterol/ Ipratropium (Duoneb) 3 ml Q6R NEB 03/15/18 21:00 04/14/18 20:59 04/14/18 07:21 3 ML Citalopram Hydrobromide (celeXA TAB) 30 mg DAILY PO 03/16/18 09:00 04/15/18 08:59 Future hold 04/14/18 07:41 30 MG Diclofenac Sodium (Voltaren 1% Top Gel) 1 appln QID PRN EXT 03/15/18 19:30 04/14/18 19:29 04/06/18 23:49 1 APPLN Levothyroxine Sodium (Synthroid Tab) 100 mcg DAILYBB PO 03/16/18 06:00 04/15/18 06:59 Future hold 04/14/18 06:24 100 MCG Nystatin (Mycostatin Powder) 1 appln TID EXT 03/15/18 21:00 04/14/18 20:59 04/14/18 14:01 1 APPLN Ropinirole HCl (Requip Tab) 0.5 mg HS PO 03/15/18 21:00 04/14/18 20:59 Future hold 04/13/18 20:38 0.5 MG Miscellaneous Information (Order Awaiting Action) 1 ea QS N/A 03/16/18 00:00 04/15/18 00:00 03/18/18 18:49 1 EA Glucose (Glucose 40% Gel) 15-30 GRAMS 15 GRAMS... UD PRN PO 03/15/18 19:00 04/14/18 18:59 Glucose (Glucose Chew Tab) 4-8 Tablets 4 Tabl... UD PRN PO 03/15/18 19:00 04/14/18 18:59 Dextrose (Dextrose 50% 50ML Syringe) 25-50ML 25ML FOR ... UD PRN IV 03/15/18 19:00 04/14/18 18:59 Glucagon (Glucagon Inj) 1 mg UD PRN SQ 03/15/18 19:00 04/14/18 18:59 Carbohydrates (Carbohydrates For Hypoglycemia) 15-30 GRAMS 15 grams if BSG 54-69... UD PRN PO 03/15/18 19:00 04/14/18 18:59 Heparin Sodium (Porcine) (Heparin 10 Unit/ ml 5 ml Flush) 5 ml PRN PRN FLUSH 03/20/18 00:30 04/19/18 00:29 04/14/18 05:48 5 ML Amiodarone HCl (Cordarone Tab) 200 mg DAILY PO 03/29/18 09:00 04/28/18 08:59 04/14/18 07:43 200 MG Non-Formulary Medication (Non-Formulary Patient'S Own Med) 1 ea DAILY PO 03/22/18 09:00 04/21/18 08:59 04/04/18 08:05 1 EA Senna (Senokot Tab) 17.2 mg HS PO 03/24/18 21:00 04/23/18 20:59 Future hold 04/13/18 20:38 17.2 MG Acetaminophen 100 ml @ 400 mls/hr Q8H PRN IV 03/25/18 15:45 04/24/18 15:44 04/08/18 19:36 400 MLS/HR Lorazepam (Ativan Inj) 0.5 mg Q6H PRN IV 03/27/18 18:15 04/26/18 18:14 03/31/18 03:54 0.5 MG Lorazepam 0.5 mg/ Syringe 1 ml @ 1 mls/min Q6H PRN IV 03/27/18 18:45 04/26/18 18:44 Insulin Aspart (novoLOG ASPART) SLIDING SCALE If C... ACHS SC 04/01/18 07:00 05/01/18 06:59 04/07/18 17:56 1 UNITS Prednisone (PredniSONE TAB) 20 mg QAM PO 04/02/18 09:00 05/01/18 08:59 04/14/18 07:43 20 MG Apixaban (Eliquis Tab) 2.5 mg BID PO 04/04/18 20:00 05/04/18 20:59 04/14/18 07:44 2.5 MG Enteral Nutritional Formula (Boost Plus Vanilla) 0.5 can QID PO 04/05/18 17:00 05/05/18 16:59 04/14/18 13:00 0.5 CAN Lansoprazole (Prevacid Solutab) 30 mg DAILY NG 04/07/18 09:30 05/07/18 09:29 04/14/18 07:44 30 MG Gabapentin (Neurontin Cap) 300 mg HS PO 04/13/18 21:00 04/14/18 20:59 04/13/18 20:38 300 MG Multivitamins Therapeutic (Cerovite Liquid) 15 ml QAM PO 04/14/18 08:00 05/14/18 07:59 04/14/18 07:42 15 ML Potassium Chloride 40 meq/ Dextrose 1,020 ml @ 75 mls/hr [id number] IV 04/14/18 10:00 05/14/18 09:59 04/14/18 11:03 75 MLS/HR Potassium Chloride (Beba Ciel Elix) 40 meq BID PO 04/14/18 09:45 05/14/18 09:44 Future hold Midodrine (Proamatine Tab) 2.5 mg TID@08,12,17 PRN PO 04/14/18 13:30 05/14/18 13:29 UNV Vital Signs: Date Time Temp Pulse Resp B/P (MAP) Pulse Ox O2 Delivery O2 Flow Rate FiO2 04/14/18 10:48 23 7.0 04/14/18 09:00 93 Trach Collar 8.0 28 04/14/18 08:30 36.5 90 139/79 (99) 93 Trach Collar 04/14/18 07:27 60 16 98 Trach Collar 8.0 28 04/14/18 01:41 68 16 96 Trach Collar 8.0 28 04/14/18 00:20 Trach Collar 8.0 04/13/18 22:37 36.5 68 18 155/81 (105) 99 Trach Collar 04/13/18 19:12 72 16 98 Trach Collar 8.0 04/13/18 16:00 96 Trach Collar 8.0 28 04/13/18 15:21 36.4 66 20 132/70 (90) 96 Trach Collar 8.0 04/13/18 14:17 68 16 96 Trach Collar 8.0 Laboratory Results: Last 24 Hours Test 04/13/18 17:03 04/13/18 20:13 04/14/18 05:50 04/14/18 07:54 Bedside Glucose 134 mg/dl 148 mg/dl 90 mg/dl White Blood Count 4.17 K/uL Red Blood Count 3.05 M/uL Hemoglobin 9.1 g/dL Hematocrit 29.2 % Mean Corpuscular Volume 95.7 fL Mean Corpuscular Hemoglobin 29.8 pg Mean Corpuscular Hemoglobin Concent 31.2 g/dl RDW Standard Deviation 55.7 fL RDW Coefficient of Variation 15.9 % Platelet Count 187 K/uL Mean Platelet Volume 9.7 fL Sodium Level 146 mmol/L Potassium Level 3.0 mmol/L Chloride Level 109 mmol/L Carbon Dioxide Level 28 mmol/L Anion Gap 9.0 mmol/L Blood Urea Nitrogen 32 mg/dl Creatinine 3.28 mg/dl Est Creatinine Clear Calc Drug Dose 13.6 ml/min Estimated GFR () 14.6 Estimated GFR (Non- 12.6 BUN/Creatinine Ratio 9.6 Random Glucose 73 mg/dl Calcium Level 7.2 mg/dl Test 04/14/18 12:02 Bedside Glucose 160 mg/dl
--- NOTE | 2018-04-14 14:54 | Progress Note ---
Subjective Date of Service: Apr 14, 2018. Subjective this pt is about the same, she is eating small bites Her daughter is at the bedside and has questions about her HGB of 9.2 wanting a transfusion or erythropoietin. the pt does not appear to be in acute distress, will use iron supplementation. pt is in need of transitional care, will explore acute or subacute rehab Problem List Medical Problems: (1) Cervical strain Status: Acute (2) Contusion of multiple sites Status: Acute (3) COPD exacerbation Status: Acute (4) Fall Status: Acute (5) Fall from chair, initial encounter Status: Acute (6) Fatigue Status: Acute (7) Head injury Status: Acute (8) Head injury Status: Acute (9) Hip pain Status: Acute (10) Hypocalcemia Status: Acute (11) Hypoxia Status: Acute (12) Hypoxia Status: Acute (13) Lower extremity edema Status: Acute (14) PNA (pneumonia) Status: Acute (15) Pneumonia Status: Acute (16) Pneumonitis Status: Acute (17) Reactive airway disease Status: Acute (18) Right flank pain Status: Acute (19) Sepsis Status: Acute (20) Sepsis Status: Acute (21) Syncope Status: Acute (22) Traumatic compression fracture of third thoracic vertebra Status: Acute (23) Vaginal yeast infection Status: Acute (24) Weakness Status: Acute (25) Yeast vaginitis Status: Acute Review of Systems Constitutional: + weakness, + fatigue, No fever, No chills Respiratory: + cough, + shortness of breath, + dyspnea on exertion Cardiac: + edema, No chest pain Abdomen: No pain, No nausea, No vomiting, No diarrhea Female : No dysuria, No hematuria Psychiatric: No depression symptoms, No anxiety Objective Vital Signs Date Time Temp Pulse Resp B/P (MAP) Pulse Ox O2 Delivery O2 Flow Rate FiO2 04/14/18 14:15 76 16 97 Trach Collar 8.0 04/14/18 10:48 23 7.0 04/14/18 09:00 93 Trach Collar 8.0 04/14/18 08:30 36.5 90 139/79 (99) 93 Trach Collar 04/14/18 07:27 60 16 98 Trach Collar 8.0 04/14/18 01:41 68 16 96 Trach Collar 8.0 04/14/18 00:20 Trach Collar 8.0 04/13/18 22:37 36.5 68 18 155/81 (105) 99 Trach Collar 04/13/18 19:12 72 16 98 Trach Collar 8.0 28 04/13/18 16:00 96 Trach Collar 8.0 28 04/13/18 15:21 36.4 66 20 132/70 (90) 96 Trach Collar 8.0 28 Physical Exam General Appearance: WD/WN, + mild distress Eyes: normal inspection, PERRL, EOMI, sclerae normal Respiratory/Chest: chest non-tender, + respiratory distress, + accessory muscle use Cardiovascular: regular rate, rhythm, no murmur Abdomen: normal bowel sounds, soft Extremities: no pedal edema, no calf tenderness Neurologic/Psychiatric: alert, oriented x 3 Laboratory Results Last 24 Hours Test 04/13/18 17:03 04/13/18 20:13 04/14/18 05:50 04/14/18 07:54 Bedside Glucose 134 mg/dl 148 mg/dl 90 mg/dl White Blood Count 4.17 K/uL Red Blood Count 3.05 M/uL Hemoglobin 9.1 g/dL Hematocrit 29.2 % Mean Corpuscular Volume 95.7 fL Mean Corpuscular Hemoglobin 29.8 pg Mean Corpuscular Hemoglobin Concent 31.2 g/dl RDW Standard Deviation 55.7 fL RDW Coefficient of Variation 15.9 % Platelet Count 187 K/uL Mean Platelet Volume 9.7 fL Sodium Level 146 mmol/L Potassium Level 3.0 mmol/L Chloride Level 109 mmol/L Carbon Dioxide Level 28 mmol/L Anion Gap 9.0 mmol/L Blood Urea Nitrogen 32 mg/dl Creatinine 3.28 mg/dl Est Creatinine Clear Calc Drug Dose 13.6 ml/min Estimated GFR () 14.6 Estimated GFR (Non- 12.6 BUN/Creatinine Ratio 9.6 Random Glucose 73 mg/dl Calcium Level 7.2 mg/dl Test 04/14/18 12:02 Bedside Glucose 160 mg/dl Assessment and Plan 83 y/o female presents with right sided chest/abd pain and acute on Chronic Respiratory Failure with hypoxia, COPD, H/O DVTs, Hypothyroidism, T2DM, CKD Stage II/III, Diastolic CHF, and Elevated R Hemidiaphragm S/P Plication, she underwent tracheostomy, has feeding difficulties and resolving acute kidney injury from vancomycin Continues with little changes in her care, following improvement in renal function, awaiting placement decision, family has questions about transfusions b/l pneumonia - 2nd to MRSA - completed 14 days of vanco. Patient has a trach due likely to her weight, large neck and cushingoid features causing airway obstruction. changed trach to uncuffed.Size 6. Vanco level was toxic at end of treatment. Vanco has been held since level became toxic. new-onset a. fib - converted to NSR earlier this stay with amiodarone. amiodarone along w/ eliquis. acute/chronic hypoxic respiratory failure - s/p trach placement. Acute component 2nd to pneumonia has resolved dysphagia - patient refusing permanent feeding tube. Speech re-evaluated her 03/30/18 w/ bedside swallow and patient placed back on thickened liquids. Tolerating such thus far. Allow mech soft diabetic diet as desired/tolerated, has had challenges meeting caloric intake. protein calorie malnutrition, moderate-severe degree - again she is refusing permanent feeding tube, offering oral feeds and supplements. . COPD with mild exacerbation - wean to prednisone is not recommended to decreasing to 10 mg given the risk that she may become hypotensive from adrenal insufficiency. H/O DVTs - noted; resumed eliquis. Acute on CKD stage 3 Consulted neprhology, resolving ATN, due to her lab tests. Hypothyroidism - compensated; cont synthroid. T2DM - controlled with insulin ssi. chronic diastolic CHF - compensated. In fact she has lost weight in the hospital. right-sided elevated Hemidiaphragm - S/P Plication in the past. depression - resumed SSRI. Consider titration and/or addition of additional medication. iron deficiency, pt has issues taking oral iron will have dose of iv iron and follow anemia especially since on anticoagulation. on prevacid soltab DVT proph - eliquis. RLS - requip. Continued [facility] stay due to: fever, inadequate po fluid intake, inadequate oral pain control, voiding difficulties, ambulation difficulties, multiple IV medications needed, other (ileus, pneumonia, etc) Discharge planning: uncertain
[2018-04-14] MEDS: ACETAMINOPHEN 325 MG TAB PO PRN (16:09)
[2018-04-14] MEDS: SENNA 8.6 MG TAB PO SCH (21:00)
[2018-04-15] VITALS (8 sets, daily range): BP systolic 135–170; BP diastolic 78–94; PULSE 75–80; TEMP 36.9; O2SAT 92–96
[2018-04-15] MEDS: POTASSIUM CHLORIDE INJ 40 MEQ in DEXTROSE 5% 1000ML 1,000 ML IV SCH (00:12)
[2018-04-15] MEDS: LEVOTHYROXINE 100 MCG TAB PO SCH (06:25)
[2018-04-15] MEDS: INSULIN ASPART 100 UNITS/ML 3 ML PEN SC SCH ×4 (06:30→20:50)
[2018-04-15 07:04] LABS: CALCIUM 7.1 mg/dl (8.5-10.1); CREATININE 2.56 mg/dl (0.60-1.20); POTASSIUM 3.3 mmol/L (3.5-5.1)
[2018-04-15] MEDS: ALBUT/IPRATROP 3MG/0.5MG NEB 3 ML VIAL INH SCH ×4 (07:25→19:36)
[2018-04-15] MEDS ORDERED: POTASSIUM CHLORIDE 20 MEQ/15 ML UDC PO SCH (09:00)
[2018-04-15] MEDS: AMIODARONE 200 MG TAB PO SCH (09:06)
[2018-04-15] MEDS: MULTIVITAMINS W/MINERALS 15ML UDP PO SCH (09:09)
[2018-04-15] MEDS: LANSOPRAZOLE SOLUTAB 30 MG NG SCH (09:09)
[2018-04-15] MEDS: CITALOPRAM 20 MG TAB PO SCH (09:10)
[2018-04-15] MEDS: APIXABAN 2.5 MG TAB PO SCH ×2 (09:13→20:50)
[2018-04-15] MEDS: BOOST PLUS VANILLA OR BOOST GLUCOSE CONTROL STRAWBERRY PO SCH ×4 (09:20→20:49)
--- NOTE | 2018-04-15 10:16 | Nephrology Progress Note ---
Nephrology Progress Note Date of Service Apr 15, 2018. Chief Complaint f/u for MANJULA, Hypokalemia, hypernatremia Subjective Karen was seen and examined in her room this morning. Looks comfortable, denies any symptoms. Renal function continues to improve, creatinine was 2.6 this morning, hyponatremia improved. Remain non-oliguric. Blood pressure control. Review of Systems A complete review of systems was performed. Pertinent positives are noted above. All other systems are negative. Vital Signs Last 8 Hrs Date Time Temp Pulse Resp B/P (MAP) Pulse Ox O2 Delivery O2 Flow Rate FiO2 04/15/18 09:00 93 Trach Collar 8.0 28 04/15/18 07:25 80 18 94 Trach Collar 6.0 04/15/18 07:25 36.9 75 16 135/78 (97) 95 Trach Collar 6.0 Last Recorded Weight Weight (Kilograms): 89.400 Physical Exam GENERAL: Elderly female , AAA x 3, ill-appearing, not in any distress, responds minimally. Head and NECK: Supple, face puffy, trach collar in place RESPIRATORY: Normal breathing efforts, no accessory muscle use, clear to auscultation bilaterally, no wheezes or rales. CARDIOVASCULAR: S1, S2 normal, rate rhythm regular. EXTREMITY: No lower extremity edema, b/l upper extremity edema NEURO: moves extremities Family History Diabetes mellitus FH: cancer FH: gallbladder disease FH: heart disease FH: lung disease Hypertension Kidney disease or stones Social History Smoking Status: Never smoker Drug Use: none Marital Status: Housing Status: lives with family Occupation: retired Laboratory Results Past 24 Hours 04/15/18 05:45 Test 04/14/18 12:02 04/14/18 16:49 04/14/18 19:49 04/15/18 05:45 Bedside Glucose 160 mg/dl (70-90) 207 mg/dl (70-90) 178 mg/dl (70-90) Anion Gap 7.0 mmol/L (3-11) Est Creatinine Clear Calc Drug Dose 17.9 ml/min Estimated GFR () 19.6 Estimated GFR (Non- 16.9 BUN/Creatinine Ratio 10.8 (10-20) Calcium Level 7.1 mg/dl (8.5-10.1) Iron Level 105 mcg/dl (35-150) Test 04/15/18 07:44 Bedside Glucose 88 mg/dl (70-90) Allergies Coded Allergies: Adhesives (Verified Allergy, Severe, TAPE-REDNESS, BLISTERS, 03/19/18) Pneumococcal Vaccine (Verified Allergy, Severe, SHORTNESS OF BREATH, ) Metronidazole (Verified Allergy, Intermediate, skin rash, 03/19/18) allergic to generic form Phenazopyridine (Verified Allergy, Intermediate, abdominal pain/rash, ) Erythromycin (Verified Allergy, Mild, RASH, 03/19/18) Salicylates (Verified Allergy, Unknown, pt states rash with ASA 325 but not ASA 81mg, 03/19/18) Sulfa Antibiotics (Verified Allergy, Unknown, ON MED LIST, 03/19/18) Tetracycline (Verified Allergy, Unknown, RASH, 03/19/18) Morphine (Verified Adverse Reaction, Intermediate, urinary retention - oral morphine only, 03/19/18) Diltiazem (Verified Adverse Reaction, Mild, FLUID RETENTION, 03/19/18) Metoclopramide (Verified Adverse Reaction, Mild, TREMORS, 03/19/18) Bacitracin (Verified Adverse Reaction, Unknown, "MAKES IT WORSE"-OK IF NOT OTC MEDICATION, 03/19/18) OKAY IF NOT OVER THE COUNTER MEDICATION Medications Current Inpatient Medications Medications (Trade) Dose Ordered Sig/Natasha Route Start Time Stop Time Status Last Admin Dose Admin Heparin Sodium (Porcine) (Heparin 10 Unit/ ml 5 ml Flush) 5 ml PRN PRN FLUSH 03/20/18 00:30 04/19/18 00:29 04/14/18 05:48 5 ML Amiodarone HCl (Cordarone Tab) 200 mg DAILY PO 03/29/18 09:00 04/28/18 08:59 04/15/18 09:06 200 MG Non-Formulary Medication (Non-Formulary Patient'S Own Med) 1 ea DAILY PO 03/22/18 09:00 04/21/18 08:59 04/04/18 08:05 1 EA Senna (Senokot Tab) 17.2 mg HS PO 03/24/18 21:00 04/23/18 20:59 Future hold 04/13/18 20:38 17.2 MG Acetaminophen 100 ml @ 400 mls/hr Q8H PRN IV 03/25/18 15:45 04/24/18 15:44 04/08/18 19:36 400 MLS/HR Lorazepam (Ativan Inj) 0.5 mg Q6H PRN IV 03/27/18 18:15 04/26/18 18:14 03/31/18 03:54 0.5 MG Lorazepam 0.5 mg/ Syringe 1 ml @ 1 mls/min Q6H PRN IV 03/27/18 18:45 04/26/18 18:44 04/14/18 18:37 1 MLS/MIN Insulin Aspart (novoLOG ASPART) SLIDING SCALE If C... ACHS SC 04/01/18 07:00 05/01/18 06:59 04/14/18 17:43 1 UNITS Prednisone (PredniSONE TAB) 20 mg QAM PO 04/02/18 09:00 05/01/18 08:59 04/15/18 09:08 20 MG Apixaban (Eliquis Tab) 2.5 mg BID PO 04/04/18 20:00 05/04/18 20:59 04/15/18 09:13 2.5 MG Enteral Nutritional Formula (Boost Plus Vanilla) 0.5 can QID PO 04/05/18 17:00 05/05/18 16:59 04/15/18 09:20 0.5 CAN Lansoprazole (Prevacid Solutab) 30 mg DAILY NG 04/07/18 09:30 05/07/18 09:29 04/15/18 09:09 30 MG Multivitamins Therapeutic (Cerovite Liquid) 15 ml QAM PO 04/14/18 08:00 05/14/18 07:59 04/15/18 09:09 15 ML Midodrine (Proamatine Tab) 2.5 mg TID@08,12,17 PRN PO 04/14/18 13:30 05/14/18 13:29 04/15/18 09:08 2.5 MG Albuterol/ Ipratropium (Duoneb) 3 ml QIDR INH 04/15/18 08:00 05/15/18 07:59 04/15/18 07:25 3 ML Potassium Chloride (Beba Ciel Elix) 40 meq QAM PO 04/15/18 09:00 05/14/18 09:44 04/15/18 09:34 40 MEQ Potassium Chloride 100 ml @ 100 mls/hr Q1H IV 04/15/18 10:30 04/15/18 14:29 Impression (1) MANJULA (acute kidney injury) (2) Pneumonia (3) MRSA (methicillin resistant staph aureus) culture positive (4) COPD exacerbation Ms. Philip is a frail 83-year-old female with multiple comorbid medical conditions. 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 Karen is now being managed with tracheostomy and a chronic oxygen requirement. She has developed oliguric MANJULA consistent with ATN while being treated for multifocal MRSA pneumonia. MANJULA is consistent with ATN, possibly secondary to vancomycin nephrotoxicity. Vancomycin has been discontinued. Renal US did not show evidence of obstruction. UA is bland with acellular microscopy. Urine sodium excretion consistent with tubular injury. Recommendations -- Patient remains within the recovery phase of ATN. Creatinine has improved to 2.6, net negative daily --discontinue D5 water, replace potassium with KCl 40 mEq El elixir x1 dose -- Monitor volume status, UO and electrolytes. -- Due to debility and chronic lung disease, although renal function seems to be improving, overall prognosis remains poor. Will follow
[2018-04-15] MEDS: POTASSIUM CHLR 10 MEQ / WTR 100 ML IV SCH ×4 (10:55→14:44)
--- NOTE | 2018-04-15 13:48 | Hospitalist Progress Note ---
Hospitalist Progress Note Date of Service Apr 15, 2018. Subjective Pt evaluation today including: conversation w/ patient Voiding: christian catheter in place Patient reports some mild abdominal pain in the right upper quadrant and right- sided. Not eating much in a few bowel movements in the last few days. Otherwise, renal function improving. No other complaints All Other Systems: Reviewed and Negative Objective Vital Signs Date Time Temp Pulse Resp B/P (MAP) Pulse Ox O2 Delivery O2 Flow Rate FiO2 04/15/18 11:27 79 20 92 Trach Collar 6.0 04/15/18 09:00 93 Trach Collar 8.0 28 04/15/18 07:25 80 18 94 Trach Collar 6.0 04/15/18 07:25 36.9 75 16 135/78 (97) 95 Trach Collar 6.0 04/14/18 22:42 36.8 70 16 147/81 (103) 95 Room Air 04/14/18 20:10 Trach Collar 8.0 04/14/18 18:44 77 18 94 Trach Collar 6.0 04/14/18 14:59 36.5 76 18 132/72 (92) 96 Trach Collar 8.0 04/14/18 14:15 76 16 97 Trach Collar 8.0 28 Physical Exam General Appearance: no apparent distress Eyes: normal inspection, sclerae normal ENT: hearing grossly normal Neck: + pertinent finding (Trach collar in place) Respiratory/Chest: no respiratory distress, no accessory muscle use, + pertinent finding (Coarse upper airway sounds, otherwise clear) Cardiovascular: regular rate, rhythm, no murmur Abdomen: normal bowel sounds, non tender, soft Extremities: no pedal edema, no calf tenderness Neurologic/Psychiatric: alert, normal mood/affect Skin: normal color, no rash Laboratory Results Last 24 Hours Test 04/14/18 16:49 04/14/18 19:49 04/15/18 05:45 04/15/18 07:44 Bedside Glucose 207 mg/dl 178 mg/dl 88 mg/dl Sodium Level 143 mmol/L Potassium Level 3.3 mmol/L Chloride Level 106 mmol/L Carbon Dioxide Level 30 mmol/L Anion Gap 7.0 mmol/L Blood Urea Nitrogen 28 mg/dl Creatinine 2.56 mg/dl Est Creatinine Clear Calc Drug Dose 17.9 ml/min Estimated GFR () 19.6 Estimated GFR (Non- 16.9 BUN/Creatinine Ratio 10.8 Random Glucose 89 mg/dl Calcium Level 7.1 mg/dl Iron Level 105 mcg/dl Test 04/15/18 11:04 Bedside Glucose 127 mg/dl Assessment and Plan This patient is an 83 y/o female presents with right sided chest/abd pain secondary to stercoral colitis and acute on Chronic Respiratory Failure with hypoxia, with a history of COPD, H/O DVTs, Hypothyroidism, T2DM, CKD Stage II/ III, Diastolic CHF, and Elevated R Hemidiaphragm S/P Plication, she underwent tracheostomy, has feeding difficulties and resolving acute kidney injury from vancomycin after treatment for MRSA pneumonia Continues with little changes in her care, following improvement in renal function, awaiting placement decision Right-sided abdominal pain-recurrent. Initially was stercoral colitis on admission with lactic acidosis that resolved with movement of her bowels. -Aggressive bowel regimen-add bisacodyl suppository, MiraLAX, and senna/ docusate twice daily b/l pneumonia - 2nd to MRSA - completed 14 days of vanco. Patient has a trach due likely to her weight, large neck and cushingoid features causing airway obstruction. changed trach to uncuffed.Size 6. Vanco level was toxic at end of treatment. Vanco has been held since level became toxic. new-onset a. fib - converted to NSR earlier this stay with amiodarone. -Continue amiodarone along w/ eliquis. acute/chronic hypoxic respiratory failure - s/p trach placement. Acute component 2nd to pneumonia has resolved -Remain on trach collar continuously, no need for BiPAP dysphagia - patient refusing permanent feeding tube. Speech re-evaluated her 03/30/18 w/ bedside swallow and patient placed back on thickened liquids. Tolerating such thus far. [facility] as desired/tolerated, has had challenges meeting caloric intake. protein calorie malnutrition, moderate-severe degree - again she is refusing permanent feeding tube, offering oral feeds and supplements. . COPD with mild exacerbation - weaning prednisone is not recommended given the risk that she may become hypotensive from adrenal insufficiency. 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 Acute on CKD stage 3 Consulted nephrhology, resolving ATN, creatinine continues to improve -Follow BMP -Follow I's and O's and volume status Hypothyroidism - compensated; cont synthroid. T2DM - controlled with insulin ssi. chronic diastolic CHF - compensated. In fact she has lost weight in the hospital. right-sided elevated Hemidiaphragm - S/P Plication in the past. Contributes to her hypoventilation depression - resumed SSRI iron deficiency, pt has issues taking oral iron will received a dose of iv iron and follow anemia especially since on anticoagulation. on prevacid soltab Rabia glabrata UTI-initial UA and urine culture were negative, repeat on 03/20 was worse and patient had symptoms of dysuria at that time. Urine culture growing Rabia glabrata -Completed course of IV caspofungin -Appreciate infectious disease consultation History of orthostatic hypotension-takes midodrine as needed DVT proph - eliquis. RLS - requip. Disposition-applying for authorization for subacute rehab
[2018-04-15] MEDS ORDERED: POLYETHYLENE (MIRALAX) 17 GM PACK PO ONE (15:14)
[2018-04-15] MEDS ORDERED: DOCUSATE SODIUM/SENNA 50/8.6MG TAB PO ONE (15:15)
[2018-04-15] MEDS ORDERED: BISACODYL 10 MG SUPP PR PRN (15:15)
[2018-04-15] MEDS: ACETAMINOPHEN IV 1000MG/100ML IV PRN (16:18)
[2018-04-15] MEDS: DOCUSATE SODIUM/SENNA 50/8.6MG TAB PO SCH (20:50)
--- NOTE | 2018-04-15 22:20 | DIAGNOSTIC IMAGING REPORT ---
KUB CLINICAL HISTORY: MD ORDER pain COMPARISON STUDY: 04/04/2018 FINDINGS: Nonobstructive bowel pattern. Postoperative changes lumbar spine. Several pelvic vascular calcifications./Low thoracic no secondary signs of free air. IMPRESSION: No acute process. The above report was generated using voice recognition software. It may contain grammatical, syntax or spelling errors. Electronically signed by: Vignesh Kim M.D. 04/15/2018 10:19 PM Dictated Date/Time: 04/15/2018 10:18 PM
[2018-04-16] VITALS (7 sets, daily range): BP systolic 131–143; BP diastolic 75–80; PULSE 70–82; TEMP 36.6–37; O2SAT 95–96
[2018-04-16 05:53] LABS: BASO % 0.2 %; BASO ABS # 0.01 K/uL (0-0.2); EOS % 0.3 %; EOS ABS # 0.02 K/uL (0-0.5); HEMATOCRIT 29.7 % (37-47); HEMOGLOBIN 9.6 g/dL (12.0-16.0); IG# 0.29 K/uL (0.00-0.02); LYMPH % 24.9 %; LYMPH ABS # 1.62 K/uL (1.2-3.4); MEAN CORPUSCULAR HEMOGLOBIN 30.4 pg (25-34); MEAN CORPUSCULAR HGB CONC 32.3 g/dl (32-36); MEAN PLATELET VOLUME 9.8 fL (7.4-10.4); MONO % 9.4 %; MONO ABS # 0.61 K/uL (0.11-0.59); NEUT % 60.7 %; NEUT ABS # 3.95 K/uL (1.4-6.5); PLATELET COUNT 195 K/uL (130-400); RED CELL DISTRIBUTION WIDTH SD 55.4 fL (36.4-46.3)
[2018-04-16 06:30] LABS: CALCIUM 7.3 mg/dl (8.5-10.1); CREATININE 2.39 mg/dl (0.60-1.20); POTASSIUM 3.8 mmol/L (3.5-5.1)
[2018-04-16] MEDS: ALBUT/IPRATROP 3MG/0.5MG NEB 3 ML VIAL INH SCH ×4 (07:10→19:07)
[2018-04-16] MEDS: LANSOPRAZOLE SOLUTAB 30 MG NG SCH ×2 (08:00→08:43)
[2018-04-16] MEDS: CITALOPRAM 20 MG TAB PO SCH ×2 (08:43→08:54)
[2018-04-16] MEDS: BOOST PLUS VANILLA OR BOOST GLUCOSE CONTROL STRAWBERRY PO SCH ×5 (08:43→19:40)
[2018-04-16] MEDS: APIXABAN 2.5 MG TAB PO SCH ×3 (08:44→19:41)
[2018-04-16] MEDS: POLYETHYLENE (MIRALAX) 17 GM PACK PO SCH ×2 (08:44→08:55)
[2018-04-16] MEDS: MULTIVITAMINS W/MINERALS 15ML UDP PO SCH ×2 (08:44→08:54)
[2018-04-16] MEDS: AMIODARONE 200 MG TAB PO SCH ×2 (08:44→08:54)
[2018-04-16] MEDS: DOCUSATE SODIUM/SENNA 50/8.6MG TAB PO SCH ×3 (08:45→19:40)
[2018-04-16] MEDS: INSULIN ASPART 100 UNITS/ML 3 ML PEN SC SCH ×4 (08:55→21:00)
[2018-04-16] MEDS: MAGNESIUM SULFATE 1GM / D5W 100 ML IV SCH ×3 (09:58→12:47)
--- NOTE | 2018-04-16 11:20 | Nephrology Progress Note ---
Nephrology Progress Note Date of Service Apr 16, 2018. Chief Complaint f/u for MANJULA, Hypokalemia, hypernatremia Subjective Karen was seen and examined in her room this morning. Looks comfortable, denies any symptoms. Renal function continues to improve, creatinine was 2.4 this morning, hyponatremia and hypokalemia resolved. Remain non-oliguric. Blood pressure controlled. Review of Systems A complete review of systems was performed. Pertinent positives are noted above. All other systems are negative. Vital Signs Last 8 Hrs Date Time Temp Pulse Resp B/P (MAP) Pulse Ox O2 Delivery O2 Flow Rate FiO2 04/16/18 07:34 37.0 75 16 96 Trach Collar 6.0 04/16/18 07:12 70 18 96 Trach Collar 6.0 28 Last Recorded Weight Weight (Kilograms): 86.400 Physical Exam GENERAL: Elderly female , AAA x 3, ill-appearing, not in any distress, responds minimally. Head and NECK: Supple, face puffy, trach collar in place RESPIRATORY: Normal breathing efforts, no accessory muscle use, clear to auscultation bilaterally, no wheezes or rales. CARDIOVASCULAR: S1, S2 normal, rate rhythm regular. EXTREMITY: No lower extremity edema, b/l upper extremity edema NEURO: moves extremiti Family History Diabetes mellitus FH: cancer FH: gallbladder disease FH: heart disease FH: lung disease Hypertension Kidney disease or stones Social History Smoking Status: Never smoker Drug Use: none Marital Status: Housing Status: lives with family Occupation: retired Laboratory Results Past 24 Hours 04/16/18 05:45 Red Blood Count 3.16, Mean Corpuscular Volume 94.0, Mean Corpuscular Hemoglobin 30.4, Mean Corpuscular Hemoglobin Concent 32.3, Mean Platelet Volume 9.8, Neutrophils (%) (Auto) 60.7, Lymphocytes (%) (Auto) 24.9, Monocytes (%) (Auto) 9.4, Eosinophils (%) (Auto) 0.3, Basophils (%) (Auto) 0.2, Neutrophils # (Auto) 3.95, Lymphocytes # (Auto) 1.62, Monocytes # (Auto) 0.61, Eosinophils # (Auto) 0.02, Basophils # (Auto) 0.01 04/16/18 05:45 Test 04/15/18 11:04 04/15/18 16:39 04/15/18 19:52 04/16/18 05:45 Bedside Glucose 127 mg/dl (70-90) 156 mg/dl (70-90) 155 mg/dl (70-90) White Blood Count 6.50 K/uL (4.8-10.8) Red Blood Count 3.16 M/uL (4.2-5.4) Hemoglobin 9.6 g/dL (12.0-16.0) Hematocrit 29.7 % (37-47) Mean Corpuscular Volume 94.0 fL (80-100) Mean Corpuscular Hemoglobin 30.4 pg (25-34) Mean Corpuscular Hemoglobin Concent 32.3 g/dl (32-36) Platelet Count 195 K/uL (130-400) Mean Platelet Volume 9.8 fL (7.4-10.4) Neutrophils (%) (Auto) 60.7 % Lymphocytes (%) (Auto) 24.9 % Monocytes (%) (Auto) 9.4 % Eosinophils (%) (Auto) 0.3 % Basophils (%) (Auto) 0.2 % Neutrophils # (Auto) 3.95 K/uL (1.4-6.5) Lymphocytes # (Auto) 1.62 K/uL (1.2-3.4) Monocytes # (Auto) 0.61 K/uL (0.11-0.59) Eosinophils # (Auto) 0.02 K/uL (0-0.5) Basophils # (Auto) 0.01 K/uL (0-0.2) RDW Standard Deviation 55.4 fL (36.4-46.3) RDW Coefficient of Variation 16.0 % (11.5-14.5) Immature Granulocyte % (Auto) 4.5 % Immature Granulocyte # (Auto) 0.29 K/uL (0.00-0.02) Anion Gap 8.0 mmol/L (3-11) Est Creatinine Clear Calc Drug Dose 19.2 ml/min Estimated GFR () 21.3 Estimated GFR (Non- 18.4 BUN/Creatinine Ratio 9.6 (10-20) Calcium Level 7.3 mg/dl (8.5-10.1) Magnesium Level 1.3 mg/dl (1.8-2.4) Test 04/16/18 07:41 Bedside Glucose 79 mg/dl (70-90) Allergies Coded Allergies: Adhesives (Verified Allergy, Severe, TAPE-REDNESS, BLISTERS, 03/19/18) Pneumococcal Vaccine (Verified Allergy, Severe, SHORTNESS OF BREATH, ) Metronidazole (Verified Allergy, Intermediate, skin rash, 03/19/18) allergic to generic form Phenazopyridine (Verified Allergy, Intermediate, abdominal pain/rash, ) Erythromycin (Verified Allergy, Mild, RASH, 03/19/18) Salicylates (Verified Allergy, Unknown, pt states rash with ASA 325 but not ASA 81mg, 03/19/18) Sulfa Antibiotics (Verified Allergy, Unknown, ON MED LIST, 03/19/18) Tetracycline (Verified Allergy, Unknown, RASH, 03/19/18) Morphine (Verified Adverse Reaction, Intermediate, urinary retention - oral morphine only, 03/19/18) Diltiazem (Verified Adverse Reaction, Mild, FLUID RETENTION, 03/19/18) Metoclopramide (Verified Adverse Reaction, Mild, TREMORS, 03/19/18) Bacitracin (Verified Adverse Reaction, Unknown, "MAKES IT WORSE"-OK IF NOT OTC MEDICATION, 03/19/18) OKAY IF NOT OVER THE COUNTER MEDICATION Medications Current Inpatient Medications Medications (Trade) Dose Ordered Sig/Natasha Route Start Time Stop Time Status Last Admin Dose Admin Heparin Sodium (Porcine) (Heparin 10 Unit/ ml 5 ml Flush) 5 ml PRN PRN FLUSH 03/20/18 00:30 04/19/18 00:29 04/16/18 05:46 5 ML Amiodarone HCl (Cordarone Tab) 200 mg DAILY PO 03/29/18 09:00 04/28/18 08:59 04/15/18 09:06 200 MG Non-Formulary Medication (Non-Formulary Patient'S Own Med) 1 ea DAILY PO 03/22/18 09:00 04/21/18 08:59 04/04/18 08:05 1 EA Acetaminophen 100 ml @ 400 mls/hr Q8H PRN IV 03/25/18 15:45 04/24/18 15:44 04/15/18 16:18 400 MLS/HR Insulin Aspart (novoLOG ASPART) SLIDING SCALE If C... ACHS SC 04/01/18 07:00 05/01/18 06:59 04/14/18 17:43 1 UNITS Prednisone (PredniSONE TAB) 20 mg QAM PO 04/02/18 09:00 05/01/18 08:59 04/15/18 09:08 20 MG Apixaban (Eliquis Tab) 2.5 mg BID PO 04/04/18 20:00 05/04/18 20:59 04/15/18 20:50 2.5 MG Enteral Nutritional Formula (Boost Plus Vanilla) 0.5 can QID PO 04/05/18 17:00 05/05/18 16:59 04/15/18 20:49 0.5 CAN Lansoprazole (Prevacid Solutab) 30 mg DAILY NG 04/07/18 09:30 05/07/18 09:29 04/15/18 09:09 30 MG Multivitamins Therapeutic (Cerovite Liquid) 15 ml QAM PO 04/14/18 08:00 05/14/18 07:59 04/15/18 09:09 15 ML Midodrine (Proamatine Tab) 2.5 mg TID@08,12,17 PRN PO 04/14/18 13:30 05/14/18 13:29 04/15/18 09:08 2.5 MG Albuterol/ Ipratropium (Duoneb) 3 ml QIDR INH 04/15/18 08:00 05/15/18 07:59 04/16/18 07:10 3 ML Senna/Docusate Sodium (Senokot S Tab) 1 tab BID PO 04/15/18 20:00 05/15/18 19:59 04/15/18 20:50 1 TAB Bisacodyl (Dulcolax Supp) 10 mg DAILY PRN NV 04/15/18 15:15 05/15/18 15:14 04/15/18 18:52 10 MG Polyethylene (Miralax Powder Packet) 17 gm DAILY PO 04/16/18 08:00 05/16/18 07:59 Citalopram Hydrobromide (celeXA TAB) 30 mg QAM PO 04/16/18 08:00 05/16/18 07:59 Impression (1) MANJULA (acute kidney injury) (2) Pneumonia (3) MRSA (methicillin resistant staph aureus) culture positive (4) COPD exacerbation Ms. Philip is a frail 83-year-old female with multiple comorbid medical conditions. 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 Karen is now being managed with tracheostomy and a chronic oxygen requirement. She has developed oliguric MANJULA consistent with ATN while being treated for multifocal MRSA pneumonia. MANJULA is consistent with ATN, possibly secondary to vancomycin nephrotoxicity. Vancomycin has been discontinued. Renal US did not show evidence of obstruction. UA is bland with acellular microscopy. Urine sodium excretion consistent with tubular injury. Recommendations -- Patient remains within the recovery phase of ATN. Creatinine has improved to 2.4, net negative daily -- Monitor volume status, UO and electrolytes. -- Due to debility and chronic lung disease, although renal function seems to be improving, overall prognosis remains poor. Will follow
[2018-04-16] MEDS: ACETAMINOPHEN IV 1000MG/100ML IV PRN (12:21)
--- NOTE | 2018-04-16 13:25 | Pulmonology Progress Note ---
Pulmonary Progress Note Date of Service Apr 16, 2018. Attending Dr. Khalil Subjective Patient notes she is more fatigued today and having increasing sputum production : Objective Patient is easily arousable today. She appears tired but has no signs of respiratory insufficiency at this time such as tachypnea or accessory muscle use. I did remove her tracheostomy inner cannula and was notably cleared/no signs of mucus production. PmHx: Pulmonary embolism, sleep apnea/OHV, COPD, oxygen dependent 2-5L, diaphragmatic insufficiency/status post fundoplication, steroid-induced myopathy , orthostatic hypotension, hypertension, sclerotic aortic valve, chronic lymphedema, paroxysmal atrial fibrillation, chronic shortness of breath, C diff positive, recurrent UTIs, status post tracheostomy 03/23/2018 Vital Signs/Physical Exam: SaO2: 96% on Venti-mask: 28% Tmax: 37.0 Neck: Well-healed ostomy with size 6 uncuffed Tracheostomy: Mild mucus secretions from the inner cannula easily suction cleared Respiratory: Minimal rhonchi appreciated the bases Cardiac: S1-S2 Abdomen: Positive bowel sounds soft non-tender to deep palpation Respiratory Medications: 1. Lisinopril 30 mg 2. Eliquis 2.5 mg b.i.d. 3. Prednisone 20 mg 4. Amiodarone 200 mg q.d. 5. DuoNeb q.6 hours 6. Ventolin nebulizer Q 4 p.r.n. Microbiology URINE: (07/24/15) Escherichia coli (09/01/15) Enterococcus faecalis (12/08/15) Lactobacillus species (11/25/16) Citrobacter species (07/07/17) Escherichia coli (07/24/17) Escherichia coli (03/20/18) Rabia Glabrata Respiratory Bronchial washing (06/29/2010) MRSA Bronchial washing left upper lobe (01/25/16) Fungal Species Right lower lobe bronchial washing (06/30/16) Fungal Species Bronchial washing right middle lobe (11/28/16) MRSA Bronchial washing right middle (01/15/17) Fungal Species Bronchial washing right and left lower lobe (10/09/2017) Bordetella Bronchiseptica Tracheal Aspirate (03/24/18): MRSA Blood (04/24/16) Propionibacterium acnes Skin (04/17/17) right lower extremity: Pseudomonas aeruginosa, Enterococcus faecalis Stool C. difficile testing for 06/07/2018: Positive Oximetry report 03/24/2018: Max single time <88%: 68 mins Patient initially admitted 03/15/2018: Right-sided chest/abdominal pain secondary to stercoral with subsequent atrial fibrillation currently controlled with amiodarone who underwent tracheostomy on 03/23/2018 for chronic respiratory insufficiency/failure. Patient also acquired MRSA pneumonia was treated with vancomycin and had ATN/AKA slowly resolving. Assessment & Plan 83-year-old female with chronic respiratory insufficiency with complicated hospital course: Atrial fibrillation, tracheostomy, MRSA pneumonia, AKA/ATN: 1. Respiratory: Patient notably stable at this time but with chronic respiratory issues. Will continue to monitor and obtain a repeat pulse oximetry study today to to determine effectiveness of tracheostomy and possible necessity of noninvasive ventilation in the future. 2. Sputum production: Patient notes she is having some sputum production but per the records both RT, nursing mi exam there are no signs of productive sputum. Will continue to monitor. Data Medications: Current Inpatient Medications Medications (Trade) Dose Ordered Sig/Natasha Route Start Time Stop Time Status Last Admin Dose Admin Heparin Sodium (Porcine) (Heparin 10 Unit/ ml 5 ml Flush) 5 ml PRN PRN FLUSH 03/20/18 00:30 04/19/18 00:29 04/16/18 09:27 5 ML Amiodarone HCl (Cordarone Tab) 200 mg DAILY PO 03/29/18 09:00 04/28/18 08:59 04/15/18 09:06 200 MG Non-Formulary Medication (Non-Formulary Patient'S Own Med) 1 ea DAILY PO 03/22/18 09:00 04/21/18 08:59 04/04/18 08:05 1 EA Acetaminophen 100 ml @ 400 mls/hr Q8H PRN IV 03/25/18 15:45 04/24/18 15:44 04/16/18 12:21 400 MLS/HR Insulin Aspart (novoLOG ASPART) SLIDING SCALE If C... ACHS SC 04/01/18 07:00 05/01/18 06:59 04/14/18 17:43 1 UNITS Prednisone (PredniSONE TAB) 20 mg QAM PO 04/02/18 09:00 05/01/18 08:59 04/15/18 09:08 20 MG Apixaban (Eliquis Tab) 2.5 mg BID PO 04/04/18 20:00 05/04/18 20:59 04/15/18 20:50 2.5 MG Enteral Nutritional Formula (Boost Plus Vanilla) 0.5 can QID PO 04/05/18 17:00 05/05/18 16:59 04/15/18 20:49 0.5 CAN Lansoprazole (Prevacid Solutab) 30 mg DAILY NG 04/07/18 09:30 05/07/18 09:29 04/15/18 09:09 30 MG Multivitamins Therapeutic (Cerovite Liquid) 15 ml QAM PO 04/14/18 08:00 05/14/18 07:59 04/15/18 09:09 15 ML Midodrine (Proamatine Tab) 2.5 mg TID@08,12,17 PRN PO 04/14/18 13:30 05/14/18 13:29 04/15/18 09:08 2.5 MG Albuterol/ Ipratropium (Duoneb) 3 ml QIDR INH 04/15/18 08:00 05/15/18 07:59 04/16/18 11:32 3 ML Senna/Docusate Sodium (Senokot S Tab) 1 tab BID PO 04/15/18 20:00 05/15/18 19:59 04/15/18 20:50 1 TAB Bisacodyl (Dulcolax Supp) 10 mg DAILY PRN VT 04/15/18 15:15 05/15/18 15:14 04/15/18 18:52 10 MG Polyethylene (Miralax Powder Packet) 17 gm DAILY PO 04/16/18 08:00 05/16/18 07:59 Citalopram Hydrobromide (celeXA TAB) 30 mg QAM PO 04/16/18 08:00 05/16/18 07:59 Vital Signs: Date Time Temp Pulse Resp B/P (MAP) Pulse Ox O2 Delivery O2 Flow Rate FiO2 04/16/18 11:38 71 18 96 Trach Collar 6.0 28 04/16/18 10:58 Trach Collar 6.0 04/16/18 07:34 37.0 75 16 96 Trach Collar 6.0 04/16/18 07:12 70 18 96 Trach Collar 6.0 28 04/16/18 00:00 Trach Collar 6.0 04/15/18 22:48 36.9 76 18 170/94 (119) 96 Room Air 04/15/18 20:00 96 Trach Collar 6.0 28 04/15/18 19:40 78 20 96 Trach Collar 6.0 28 04/15/18 16:00 Trach Collar 6.0 04/15/18 15:36 36.9 75 22 154/79 (104) 95 Room Air 04/15/18 15:33 75 20 96 Trach Collar 6.0 28 Laboratory Results: Last 24 Hours Test 04/15/18 16:39 04/15/18 19:52 04/16/18 05:45 04/16/18 07:41 Bedside Glucose 156 mg/dl 155 mg/dl 79 mg/dl White Blood Count 6.50 K/uL Red Blood Count 3.16 M/uL Hemoglobin 9.6 g/dL Hematocrit 29.7 % Mean Corpuscular Volume 94.0 fL Mean Corpuscular Hemoglobin 30.4 pg Mean Corpuscular Hemoglobin Concent 32.3 g/dl Platelet Count 195 K/uL Mean Platelet Volume 9.8 fL Neutrophils (%) (Auto) 60.7 % Lymphocytes (%) (Auto) 24.9 % Monocytes (%) (Auto) 9.4 % Eosinophils (%) (Auto) 0.3 % Basophils (%) (Auto) 0.2 % Neutrophils # (Auto) 3.95 K/uL Lymphocytes # (Auto) 1.62 K/uL Monocytes # (Auto) 0.61 K/uL Eosinophils # (Auto) 0.02 K/uL Basophils # (Auto) 0.01 K/uL RDW Standard Deviation 55.4 fL RDW Coefficient of Variation 16.0 % Immature Granulocyte % (Auto) 4.5 % Immature Granulocyte # (Auto) 0.29 K/uL Sodium Level 141 mmol/L Potassium Level 3.8 mmol/L Chloride Level 106 mmol/L Carbon Dioxide Level 28 mmol/L Anion Gap 8.0 mmol/L Blood Urea Nitrogen 23 mg/dl Creatinine 2.39 mg/dl Est Creatinine Clear Calc Drug Dose 19.2 ml/min Estimated GFR () 21.3 Estimated GFR (Non- 18.4 BUN/Creatinine Ratio 9.6 Random Glucose 74 mg/dl Calcium Level 7.3 mg/dl Magnesium Level 1.3 mg/dl Test 04/16/18 11:32 Bedside Glucose 88 mg/dl
--- NOTE | 2018-04-16 14:24 | Hospitalist Progress Note ---
Hospitalist Progress Note Date of Service Apr 16, 2018. Subjective Pt evaluation today including: conversation w/ patient, conversation w/ family Still having some right-sided abdominal pain but slightly improved from yesterday after having 2 bowel movements. She is refusing some of her pills today. No other complaints but does want to sit in the chair. Reviewed her medications. Daughter would like the gabapentin to be restarted as this helps with her back pain. All Other Systems: Reviewed and Negative Objective Vital Signs Date Time Temp Pulse Resp B/P (MAP) Pulse Ox O2 Delivery O2 Flow Rate FiO2 04/16/18 11:38 71 18 96 Trach Collar 6.0 28 04/16/18 10:58 Trach Collar 6.0 04/16/18 07:34 37.0 75 16 131/75 (93) 96 Trach Collar 6.0 04/16/18 07:12 70 18 96 Trach Collar 6.0 28 04/16/18 00:00 Trach Collar 6.0 04/15/18 22:48 36.9 76 18 170/94 (119) 96 Room Air 04/15/18 20:00 96 Trach Collar 6.0 28 04/15/18 19:40 78 20 96 Trach Collar 6.0 28 04/15/18 16:00 Trach Collar 6.0 04/15/18 15:36 36.9 75 22 154/79 (104) 95 Room Air 04/15/18 15:33 75 20 96 Trach Collar 6.0 28 Physical Exam General Appearance: WD/WN, no apparent distress Eyes: normal inspection, sclerae normal ENT: hearing grossly normal Neck: trachea midline (Tracheostomy in place with trach collar) Respiratory/Chest: lungs clear, normal breath sounds, no respiratory distress, no accessory muscle use Cardiovascular: regular rate, rhythm, no edema, no murmur Abdomen: normal bowel sounds, soft, + tenderness (Mild in the right upper quadrant without guarding or rebound) Extremities: no calf tenderness Neurologic/Psychiatric: alert, + depressed affect Skin: normal color, warm/dry, no rash Laboratory Results Last 24 Hours Test 04/15/18 16:39 04/15/18 19:52 04/16/18 05:45 04/16/18 07:41 Bedside Glucose 156 mg/dl 155 mg/dl 79 mg/dl White Blood Count 6.50 K/uL Red Blood Count 3.16 M/uL Hemoglobin 9.6 g/dL Hematocrit 29.7 % Mean Corpuscular Volume 94.0 fL Mean Corpuscular Hemoglobin 30.4 pg Mean Corpuscular Hemoglobin Concent 32.3 g/dl Platelet Count 195 K/uL Mean Platelet Volume 9.8 fL Neutrophils (%) (Auto) 60.7 % Lymphocytes (%) (Auto) 24.9 % Monocytes (%) (Auto) 9.4 % Eosinophils (%) (Auto) 0.3 % Basophils (%) (Auto) 0.2 % Neutrophils # (Auto) 3.95 K/uL Lymphocytes # (Auto) 1.62 K/uL Monocytes # (Auto) 0.61 K/uL Eosinophils # (Auto) 0.02 K/uL Basophils # (Auto) 0.01 K/uL RDW Standard Deviation 55.4 fL RDW Coefficient of Variation 16.0 % Immature Granulocyte % (Auto) 4.5 % Immature Granulocyte # (Auto) 0.29 K/uL Sodium Level 141 mmol/L Potassium Level 3.8 mmol/L Chloride Level 106 mmol/L Carbon Dioxide Level 28 mmol/L Anion Gap 8.0 mmol/L Blood Urea Nitrogen 23 mg/dl Creatinine 2.39 mg/dl Est Creatinine Clear Calc Drug Dose 19.2 ml/min Estimated GFR () 21.3 Estimated GFR (Non- 18.4 BUN/Creatinine Ratio 9.6 Random Glucose 74 mg/dl Calcium Level 7.3 mg/dl Magnesium Level 1.3 mg/dl Test 04/16/18 11:32 Bedside Glucose 88 mg/dl Assessment and Plan This patient is an 83 y/o female presents with right sided chest/abd pain secondary to stercoral colitis and acute on Chronic Respiratory Failure with hypoxia, with a history of COPD, H/O DVTs, Hypothyroidism, T2DM, CKD Stage II/ III, Diastolic CHF, and Elevated R Hemidiaphragm S/P Plication, she underwent tracheostomy, has feeding difficulties and resolving acute kidney injury from vancomycin after treatment for MRSA pneumonia Continues with little changes in her care, following improvement in renal function, awaiting placement decision Right-sided abdominal pain-recurrent. Initially was stercoral colitis on admission with lactic acidosis that resolved with movement of her bowels. Slightly improved today with starting to move her bowels -Continue aggressive bowel regimen-add bisacodyl suppository, MiraLAX, and senna /docusate twice daily -At her home Linzess 290 mcg once daily b/l pneumonia - 2nd to MRSA - completed 14 days of vanco. Patient has a trach due likely to her weight, large neck and cushingoid features causing airway obstruction. changed trach to uncuffed.Size 6. Vanco level was toxic at end of treatment. Vanco has been held since level became toxic. new-onset a. fib - converted to NSR earlier this stay with amiodarone. -Continue amiodarone along w/ eliquis. acute/chronic hypoxic respiratory failure - s/p trach placement. Acute component 2nd to pneumonia has resolved -Remain on trach collar continuously, no need for BiPAP at this point but pulmonary ordered overnight oximetry tonight to reassess for this need dysphagia - patient refusing permanent feeding tube. Still with minimal intake p.o. Speech re-evaluated her 03/30/18 w/ bedside swallow and patient placed back on thickened liquids. Tolerating such thus far. Allow mech soft diabetic diet as desired/tolerated, has had challenges meeting caloric intake. protein calorie malnutrition, moderate-severe degree - again she is refusing permanent feeding tube, offering oral feeds and supplements. Continues with minimal p.o. intake but is eating somewhat. COPD with mild exacerbation - weaning prednisone is not recommended given the risk that she may become hypotensive from adrenal insufficiency. 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 Acute on CKD stage 3 Consulted nephrology, resolving ATN, creatinine continues to improve today to 2.39 and with good amount of urine output -Follow BMP -Follow I's and O's and volume status Hypothyroidism - compensated; cont synthroid. T2DM - controlled with insulin ssi. chronic diastolic CHF - compensated. In fact she has lost weight in the hospital. right-sided elevated Hemidiaphragm - S/P Plication in the past. Contributes to her hypoventilation depression - resumed SSRI Celexa 30 mill grams daily iron deficiency, pt has issues taking oral iron will received a dose of iv iron and follow anemia especially since on anticoagulation. on prevacid soltab Rabia glabrata UTI-initial UA and urine culture were negative, repeat on 03/20 was worse and patient had symptoms of dysuria at that time. Urine culture growing Rabia glabrata -Completed course of IV caspofungin -Appreciate infectious disease consultation History of orthostatic hypotension-takes midodrine as needed Chronic lower back pain-restart gabapentin 300 mg in the evening and 20 mg in the morning DVT proph - eliquis. RLS - requip., Restarting gabapentin for this as well Disposition-applying for authorization for subacute rehab-awaiting decision
[2018-04-16] MEDS ORDERED: NURSING VERBAL MED ORDER ONE (14:30)
[2018-04-16] MEDS: LINACLOTIDE 290 MCG CAP PO PRN (18:39)
[2018-04-16] MEDS ORDERED: GABAPENTIN 300 MG CAP PO SCH (21:00)
[2018-04-17] VITALS (7 sets, daily range): BP systolic 130–135; BP diastolic 79; PULSE 69–84; TEMP 36.6–37.2; O2SAT 90–97
[2018-04-17 06:45] LABS: CALCIUM 7.4 mg/dl (8.5-10.1); CREATININE 2.04 mg/dl (0.60-1.20); POTASSIUM 3.2 mmol/L (3.5-5.1)
[2018-04-17] MEDS: ALBUT/IPRATROP 3MG/0.5MG NEB 3 ML VIAL INH SCH ×4 (07:26→18:56)
[2018-04-17] MEDS ORDERED: GABAPENTIN 100 MG CAP PO SCH (08:00)
[2018-04-17] MEDS: CITALOPRAM 20 MG TAB PO SCH (08:02)
[2018-04-17] MEDS: BOOST PLUS VANILLA OR BOOST GLUCOSE CONTROL STRAWBERRY PO SCH ×3 (08:02→16:39)
[2018-04-17] MEDS: LANSOPRAZOLE SOLUTAB 30 MG NG SCH (08:02)
[2018-04-17] MEDS: APIXABAN 2.5 MG TAB PO SCH (08:03)
[2018-04-17] MEDS: AMIODARONE 200 MG TAB PO SCH (08:03)
[2018-04-17] MEDS: DOCUSATE SODIUM/SENNA 50/8.6MG TAB PO SCH (08:03)
[2018-04-17] MEDS: POLYETHYLENE (MIRALAX) 17 GM PACK PO SCH ×2 (08:03→08:17)
[2018-04-17] MEDS: MULTIVITAMINS W/MINERALS 15ML UDP PO SCH (08:03)
[2018-04-17] MEDS: LINACLOTIDE 290 MCG CAP PO PRN (08:04)
[2018-04-17] MEDS: INSULIN ASPART 100 UNITS/ML 3 ML PEN SC SCH ×3 (08:15→16:30)
[2018-04-17] MEDS ORDERED: POTASSIUM CHLR 20 MEQ / WTR 20 MEQ IV STA ×3 (08:34→11:27)
--- NOTE | 2018-04-17 10:16 | Nephrology Progress Note ---
Nephrology Progress Note Date of Service Apr 17, 2018. Chief Complaint f/u for MANJULA, Hypokalemia, hypernatremia Bautista Jones was seen and examined in morning. She was sitting up in for the 1st time in last few days. Denies any symptom. Renal function continues to improve creatinine 2.0, potassium low at 3.2. Remain non-oliguric. Blood pressure stable. Review of Systems A complete review of systems was performed. Pertinent positives are noted above. All other systems are negative. Vital Signs Last 8 Hrs Date Time Temp Pulse Resp B/P (MAP) Pulse Ox O2 Delivery O2 Flow Rate FiO2 04/17/18 07:49 37.2 74 16 135/79 (97) 92 Trach Collar 6.0 04/17/18 07:26 82 20 97 Trach Collar 6.0 28 Last Recorded Weight Weight (Kilograms): 85.900 Physical Exam GENERAL: Elderly female , AAA x 3, ill-appearing, not in any distress, responds minimally. Head and NECK: Supple, face puffy, trach collar in place RESPIRATORY: Normal breathing efforts, no accessory muscle use, clear to auscultation bilaterally, no wheezes or rales. CARDIOVASCULAR: S1, S2 normal, rate rhythm regular. EXTREMITY: No lower extremity edema, b/l upper extremity edema NEURO: moves extremity Family History Diabetes mellitus FH: cancer FH: gallbladder disease FH: heart disease FH: lung disease Hypertension Kidney disease or stones Social History Smoking Status: Never smoker Drug Use: none Marital Status: Housing Status: lives with family Occupation: retired Laboratory Results Past 24 Hours 04/17/18 05:30 Test 04/16/18 11:32 04/16/18 17:03 04/16/18 20:41 04/17/18 05:30 Bedside Glucose 88 mg/dl (70-90) 92 mg/dl (70-90) 108 mg/dl (70-90) Anion Gap 8.0 mmol/L (3-11) Est Creatinine Clear Calc Drug Dose 22.1 ml/min Estimated GFR () 25.8 Estimated GFR (Non- 22.3 BUN/Creatinine Ratio 9.6 (10-20) Calcium Level 7.4 mg/dl (8.5-10.1) Magnesium Level 2.2 mg/dl (1.8-2.4) Test 04/17/18 07:40 Bedside Glucose 77 mg/dl (70-90) Allergies Coded Allergies: Adhesives (Verified Allergy, Severe, TAPE-REDNESS, BLISTERS, 03/19/18) Pneumococcal Vaccine (Verified Allergy, Severe, SHORTNESS OF BREATH, ) Metronidazole (Verified Allergy, Intermediate, skin rash, 03/19/18) allergic to generic form Phenazopyridine (Verified Allergy, Intermediate, abdominal pain/rash, ) Erythromycin (Verified Allergy, Mild, RASH, 03/19/18) Salicylates (Verified Allergy, Unknown, pt states rash with ASA 325 but not ASA 81mg, 03/19/18) Sulfa Antibiotics (Verified Allergy, Unknown, ON MED LIST, 03/19/18) Tetracycline (Verified Allergy, Unknown, RASH, 03/19/18) Morphine (Verified Adverse Reaction, Intermediate, urinary retention - oral morphine only, 03/19/18) Diltiazem (Verified Adverse Reaction, Mild, FLUID RETENTION, 03/19/18) Metoclopramide (Verified Adverse Reaction, Mild, TREMORS, 03/19/18) Bacitracin (Verified Adverse Reaction, Unknown, "MAKES IT WORSE"-OK IF NOT OTC MEDICATION, 03/19/18) OKAY IF NOT OVER THE COUNTER MEDICATION Medications Current Inpatient Medications Medications (Trade) Dose Ordered Sig/Natasha Route Start Time Stop Time Status Last Admin Dose Admin Heparin Sodium (Porcine) (Heparin 10 Unit/ ml 5 ml Flush) 5 ml PRN PRN FLUSH 03/20/18 00:30 04/19/18 00:29 04/17/18 05:31 5 ML Amiodarone HCl (Cordarone Tab) 200 mg DAILY PO 03/29/18 09:00 04/28/18 08:59 04/17/18 08:03 200 MG Non-Formulary Medication (Non-Formulary Patient'S Own Med) 1 ea DAILY PO 03/22/18 09:00 04/21/18 08:59 04/04/18 08:05 1 EA Acetaminophen 100 ml @ 400 mls/hr Q8H PRN IV 03/25/18 15:45 04/24/18 15:44 04/16/18 12:21 400 MLS/HR Insulin Aspart (novoLOG ASPART) SLIDING SCALE If C... ACHS SC 04/01/18 07:00 8/14/18 06:59 04/14/18 17:43 1 UNITS Prednisone (PredniSONE TAB) 20 mg QAM PO 04/02/18 09:00 05/01/18 08:59 04/17/18 08:03 20 MG Apixaban (Eliquis Tab) 2.5 mg BID PO 04/04/18 20:00 05/04/18 20:59 04/17/18 08:03 2.5 MG Enteral Nutritional Formula (Boost Plus Vanilla) 0.5 can QID PO 04/05/18 17:00 05/05/18 16:59 04/17/18 08:02 0.5 CAN Lansoprazole (Prevacid Solutab) 30 mg DAILY NG 04/07/18 09:30 05/07/18 09:29 04/17/18 08:02 30 MG Multivitamins Therapeutic (Cerovite Liquid) 15 ml QAM PO 04/14/18 08:00 05/14/18 07:59 04/17/18 08:03 15 ML Midodrine (Proamatine Tab) 2.5 mg TID@08,12,17 PRN PO 04/14/18 13:30 05/14/18 13:29 04/15/18 09:08 2.5 MG Albuterol/ Ipratropium (Duoneb) 3 ml QIDR INH 04/15/18 08:00 05/15/18 07:59 04/17/18 07:26 3 ML Senna/Docusate Sodium (Senokot S Tab) 1 tab BID PO 04/15/18 20:00 05/15/18 19:59 04/17/18 08:03 1 TAB Bisacodyl (Dulcolax Supp) 10 mg DAILY PRN WA 04/15/18 15:15 05/15/18 15:14 04/15/18 18:52 10 MG Polyethylene (Miralax Powder Packet) 17 gm DAILY PO 04/16/18 08:00 05/16/18 07:59 Citalopram Hydrobromide (celeXA TAB) 30 mg QAM PO 04/16/18 08:00 05/16/18 07:59 04/17/18 08:02 30 MG Gabapentin (Neurontin Cap) 300 mg HS PO 04/16/18 21:00 05/16/18 20:59 04/16/18 19:41 300 MG Gabapentin (Neurontin Cap) 200 mg QAM PO 04/17/18 08:00 05/17/18 07:59 04/17/18 08:03 200 MG Linaclotide (Linzess) 290 mcg DAILY PRN PO 04/16/18 15:45 05/16/18 15:44 04/17/18 08:04 290 MCG Potassium Chloride 0 ml @ 0 mls/hr NOW STAT IV 04/17/18 08:45 04/17/18 10:44 04/17/18 10:03 50 MLS/HR Impression (1) MANJULA (acute kidney injury) (2) Pneumonia (3) MRSA (methicillin resistant staph aureus) culture positive (4) COPD exacerbation Ms. Philip is a frail 83-year-old female with multiple comorbid medical conditions. 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 Karen is now being managed with tracheostomy and a chronic oxygen requirement. She has developed oliguric MANJULA consistent with ATN while being treated for multifocal MRSA pneumonia. MANJULA is consistent with ATN, possibly secondary to vancomycin nephrotoxicity. Vancomycin has been discontinued. Renal US did not show evidence of obstruction. UA is bland with acellular microscopy. Urine sodium excretion consistent with tubular injury. Recommendations -- Patient remains within the recovery phase of ATN. Creatinine has improved to 2.0, net negative daily --replace potassium with 40 mEq -- Monitor volume status, UO and electrolytes. Will follow
[2018-04-17] MEDS: POTASSIUM CHLR 10 MEQ / WTR 100 ML IV SCH ×4 (10:53→15:07)
--- NOTE | 2018-04-17 11:44 | Hospitalist Progress Note ---
Hospitalist Progress Note Date of Service Apr 17, 2018. Subjective Pt evaluation today including: conversation w/ patient, lab review Patient started to move her bowels more with her Linzess. She says the abdominal pain on the right side is not better than yesterday. She did well and her overnight pulse oximetry test and stated 96% pretty much the whole night. Continues to make urine which is clear and renal function continues to improve. Musculoskeletal: + problem reported (Chronic lower back pain) All Other Systems: Reviewed and Negative Objective Vital Signs Date Time Temp Pulse Resp B/P (MAP) Pulse Ox O2 Delivery O2 Flow Rate FiO2 04/17/18 11:10 79 20 97 Trach Collar 6.0 28 04/17/18 07:49 37.2 74 16 135/79 (97) 92 Trach Collar 6.0 04/17/18 07:26 82 20 97 Trach Collar 6.0 28 04/16/18 22:54 36.6 71 16 143/80 (101) 95 Trach Collar 04/16/18 20:13 Trach Collar 6.0 04/16/18 19:11 82 20 96 Trach Collar 6.0 28 04/16/18 16:00 96 Trach Collar 6.0 04/16/18 15:30 76 20 96 Trach Collar 6.0 28 Physical Exam General Appearance: WD/WN, no apparent distress Eyes: normal inspection, sclerae normal ENT: hearing grossly normal Neck: trachea midline (Tracheostomy and trach collar in place) Respiratory/Chest: lungs clear, normal breath sounds, no respiratory distress, no accessory muscle use Cardiovascular: regular rate, rhythm, no edema, no murmur Abdomen: normal bowel sounds, soft, + tenderness (Mild in the right side without guarding or rebound tenderness) Extremities: non-tender, normal inspection, no pedal edema, no calf tenderness Neurologic/Psychiatric: alert, + depressed affect Skin: normal color, warm/dry, no rash Laboratory Results Last 24 Hours Test 04/16/18 17:03 04/16/18 20:41 04/17/18 05:30 04/17/18 07:40 Bedside Glucose 92 mg/dl 108 mg/dl 77 mg/dl Sodium Level 143 mmol/L Potassium Level 3.2 mmol/L Chloride Level 107 mmol/L Carbon Dioxide Level 28 mmol/L Anion Gap 8.0 mmol/L Blood Urea Nitrogen 20 mg/dl Creatinine 2.04 mg/dl Est Creatinine Clear Calc Drug Dose 22.1 ml/min Estimated GFR () 25.8 Estimated GFR (Non- 22.3 BUN/Creatinine Ratio 9.6 Random Glucose 69 mg/dl Calcium Level 7.4 mg/dl Magnesium Level 2.2 mg/dl Assessment and Plan This patient is an 83 y/o female presents with right sided chest/abd pain secondary to stercoral colitis and acute on Chronic Respiratory Failure with hypoxia, with a history of COPD, H/O DVTs, Hypothyroidism, T2DM, CKD Stage II/ III, Diastolic CHF, and Elevated R Hemidiaphragm S/P Plication, she underwent tracheostomy, has feeding difficulties and resolving acute kidney injury from vancomycin after treatment for MRSA pneumonia Continues with little changes in her care, following improvement in renal function, awaiting placement decision Right-sided abdominal pain-recurrent. Initially was stercoral colitis on admission with lactic acidosis that resolved with movement of her bowels. Not much improved today but perhaps the Linzess is causing her abdominal cramping and she is having multiple bowel movement so far today. Hopefully this will help. -Continue aggressive bowel regimen-add bisacodyl suppository, MiraLAX, and senna /docusate twice daily -Continue her home Linzess 290 mcg once daily b/l pneumonia - 2nd to MRSA - completed 14 days of vanco. No recurrence so far Patient has a trach due likely to her weight, large neck and cushingoid features causing airway obstruction. changed trach to uncuffed.Size 6. Vanco level was toxic at end of treatment. Vanco has been held since level became toxic. new-onset a. fib - converted to NSR earlier this stay with amiodarone. -Continue amiodarone along w/ eliquis. acute/chronic hypoxic respiratory failure - s/p trach placement. Acute component 2nd to pneumonia has resolved -Remain on trach collar continuously, no need for BiPAP at this point and overnight oximetry test confirms this again on the night of 04/16 as her pulse ox remained in the mid to high 90s all night on 28% trach collar dysphagia - patient refused permanent feeding tube. Still with minimal intake p.o. Speech re-evaluated her 03/30/18 w/ bedside swallow and patient placed back on thickened liquids. Tolerating such thus far. [facility]/tolerated, has had challenges meeting caloric intake. protein calorie malnutrition, moderate-severe degree - again she is refusing permanent feeding tube, offering oral feeds and supplements. Continues with minimal p.o. intake but is eating somewhat. COPD with mild exacerbation - weaning prednisone is not recommended given the risk that she may become hypotensive from adrenal insufficiency. 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 Acute on CKD stage 3 Consulted nephrology, resolving ATN, creatinine continues to improve today to 2.04 and with good amount of urine output -Follow BMP -Follow I's and O's and volume status Hypothyroidism - compensated; cont synthroid. T2DM - controlled with insulin ssi. chronic diastolic CHF - compensated. In fact she has lost weight in the hospital. right-sided elevated Hemidiaphragm - S/P Plication in the past. Contributes to her hypoventilation depression - resumed SSRI Celexa 30 MG daily iron deficiency, pt has issues taking oral iron will received a dose of iv iron and follow anemia especially since on anticoagulation. on prevacid soltab Rabia glabrata UTI-initial UA and urine culture were negative, repeat on 03/20 was worse and patient had symptoms of dysuria at that time. Urine culture growing Rabia glabrata -Completed course of IV caspofungin -Appreciate infectious disease consultation History of orthostatic hypotension-takes midodrine as needed Chronic lower back pain-restarted gabapentin 300 mg in the evening and 200 mg in the morning Hypokalemia-persists today, potassium down to 3.2 -Replace with 40 mEq KCl IV DVT proph - eliquis. RLS - requip., Restarting gabapentin for this as well Disposition-applying for authorization for subacute rehab-awaiting decision
--- NOTE | 2018-04-17 13:55 | Pulmonology Progress Note ---
Pulmonary Progress Note Date of Service Apr 17, 2018. Attending Dr. Khalil Subjective Patient notes some mild shortness of breath and intermittent mucus production but overall stable/no acute changes Objective Patient was awake when I walked into the room and notes some mild respiratory insufficiency but no signs of respiratory failure such as tachypnea or secondary muscle use during our conversation. She was able to cough up a small mucus ball while I was in the room which was opaque. PmHx: Pulmonary embolism, sleep apnea/OHV, COPD, oxygen dependent 2-5L, diaphragmatic insufficiency/status post fundoplication, steroid-induced myopathy , orthostatic hypotension, hypertension, sclerotic aortic valve, chronic lymphedema, paroxysmal atrial fibrillation, chronic shortness of breath, C diff positive, recurrent UTIs, status post tracheostomy 03/23/2018 Vital Signs/Physical Exam: SaO2: 96% on Venti-mask: 28% Tmax: 37.0 Neck: Well-healed ostomy with size 6 uncuffed Tracheostomy: Mild mucus secretions from the inner cannula easily suction cleared Respiratory: Minimal rhonchi appreciated the bases Cardiac: S1-S2 Abdomen: Positive bowel sounds soft non-tender to deep palpation Respiratory Medications: 1. Lisinopril 30 mg 2. Eliquis 2.5 mg b.i.d. 3. Prednisone 20 mg 4. Amiodarone 200 mg q.d. 5. DuoNeb q.6 hours 6. Ventolin nebulizer Q 4 p.r.n. Microbiology URINE: (07/24/15) Escherichia coli (09/01/15) Enterococcus faecalis (12/08/15) Lactobacillus species (11/25/16) Citrobacter species (07/07/17) Escherichia coli (07/24/17) Escherichia coli (03/20/18) Rabia Glabrata Respiratory Bronchial washing (06/29/2010) MRSA Bronchial washing left upper lobe (01/25/16) Fungal Species Right lower lobe bronchial washing (06/30/16) Fungal Species Bronchial washing right middle lobe (11/28/16) MRSA Bronchial washing right middle (01/15/17) Fungal Species Bronchial washing right and left lower lobe (10/09/2017) Bordetella Bronchiseptica Tracheal Aspirate (03/24/18): MRSA Blood (04/24/16) Propionibacterium acnes Skin (04/17/17) right lower extremity: Pseudomonas aeruginosa, Enterococcus faecalis Stool C. difficile testing for 06/07/2018: Positive Oximetry report 03/24/2018: Max single time <88%: 68 mins Patient initially admitted 03/15/2018: Right-sided chest/abdominal pain secondary to stercoral with subsequent atrial fibrillation currently controlled with amiodarone who underwent tracheostomy on 03/23/2018 for chronic respiratory insufficiency/failure. Patient also acquired MRSA pneumonia was treated with vancomycin and had ATN/AKA slowly resolving. Assessment & Plan 83-year-old female with chronic respiratory insufficiency with complicated hospital course: Atrial fibrillation, tracheostomy, MRSA pneumonia, AKA/ATN: 1. Respiratory: Per verbal report patient had no significant desaturations overnight. I am still waiting for the official overnight pulse oximetry study performed 04/16/2018 through 04/17/2018 at this time. If the patient did do well noninvasive mechanical ventilation would not be warranted. 2. Sputum Production: Mild mucus production no signs of brie infection. Continue to monitor. 3. Rehab: Patient would greatly benefit from a rehab center such as an [facility] or possibly [facility] that she could start initiating rehabilitation protocols. Data Medications: Current Inpatient Medications Medications (Trade) Dose Ordered Sig/Natasha Route Start Time Stop Time Status Last Admin Dose Admin Heparin Sodium (Porcine) (Heparin 10 Unit/ ml 5 ml Flush) 5 ml PRN PRN FLUSH 03/20/18 00:30 04/19/18 00:29 04/17/18 05:31 5 ML Amiodarone HCl (Cordarone Tab) 200 mg DAILY PO 03/29/18 09:00 04/28/18 08:59 04/17/18 08:03 200 MG Non-Formulary Medication (Non-Formulary Patient'S Own Med) 1 ea DAILY PO 03/22/18 09:00 04/21/18 08:59 04/04/18 08:05 1 EA Acetaminophen 100 ml @ 400 mls/hr Q8H PRN IV 03/25/18 15:45 04/24/18 15:44 04/16/18 12:21 400 MLS/HR Insulin Aspart (novoLOG ASPART) SLIDING SCALE If C... ACHS SC 04/01/18 07:00 05/01/18 06:59 04/14/18 17:43 1 UNITS Prednisone (PredniSONE TAB) 20 mg QAM PO 04/02/18 09:00 05/01/18 08:59 04/17/18 08:03 20 MG Apixaban (Eliquis Tab) 2.5 mg BID PO 04/04/18 20:00 05/04/18 20:59 04/17/18 08:03 2.5 MG Enteral Nutritional Formula (Boost Plus Vanilla) 0.5 can QID PO 04/05/18 17:00 05/05/18 16:59 04/17/18 08:02 0.5 CAN Lansoprazole (Prevacid Solutab) 30 mg DAILY NG 04/07/18 09:30 05/07/18 09:29 04/17/18 08:02 30 MG Multivitamins Therapeutic (Cerovite Liquid) 15 ml QAM PO 04/14/18 08:00 05/14/18 07:59 04/17/18 08:03 15 ML Midodrine (Proamatine Tab) 2.5 mg TID@08,12,17 PRN PO 04/14/18 13:30 05/14/18 13:29 04/15/18 09:08 2.5 MG Albuterol/ Ipratropium (Duoneb) 3 ml QIDR INH 04/15/18 08:00 05/15/18 07:59 04/17/18 11:10 3 ML Senna/Docusate Sodium (Senokot S Tab) 1 tab BID PO 04/15/18 20:00 05/15/18 19:59 04/17/18 08:03 1 TAB Bisacodyl (Dulcolax Supp) 10 mg DAILY PRN ME 04/15/18 15:15 05/15/18 15:14 04/15/18 18:52 10 MG Polyethylene (Miralax Powder Packet) 17 gm DAILY PO 04/16/18 08:00 05/16/18 07:59 Citalopram Hydrobromide (celeXA TAB) 30 mg QAM PO 04/16/18 08:00 05/16/18 07:59 04/17/18 08:02 30 MG Gabapentin (Neurontin Cap) 300 mg HS PO 04/16/18 21:00 05/16/18 20:59 04/16/18 19:41 300 MG Gabapentin (Neurontin Cap) 200 mg QAM PO 04/17/18 08:00 05/17/18 07:59 04/17/18 08:03 200 MG Linaclotide (Linzess) 290 mcg DAILY PRN PO 04/16/18 15:45 05/16/18 15:44 04/17/18 08:04 290 MCG Potassium Chloride 100 ml @ 100 mls/hr Q1H IV 04/17/18 13:00 04/17/18 14:59 04/17/18 13:44 100 MLS/HR Vital Signs: Date Time Temp Pulse Resp B/P (MAP) Pulse Ox O2 Delivery O2 Flow Rate FiO2 04/17/18 12:13 Trach Collar 6.0 28 04/17/18 11:10 79 20 97 Trach Collar 6.0 28 04/17/18 07:49 37.2 74 16 135/79 (97) 92 Trach Collar 6.0 04/17/18 07:26 82 20 97 Trach Collar 6.0 28 04/16/18 22:54 36.6 71 16 143/80 (101) 95 Trach Collar 04/16/18 20:13 Trach Collar 6.0 04/16/18 19:11 82 20 96 Trach Collar 6.0 28 04/16/18 16:00 96 Trach Collar 6.0 04/16/18 15:30 76 20 96 Trach Collar 6.0 28 Laboratory Results: Last 24 Hours Test 04/16/18 17:03 04/16/18 20:41 04/17/18 05:30 04/17/18 07:40 Bedside Glucose 92 mg/dl 108 mg/dl 77 mg/dl Sodium Level 143 mmol/L Potassium Level 3.2 mmol/L Chloride Level 107 mmol/L Carbon Dioxide Level 28 mmol/L Anion Gap 8.0 mmol/L Blood Urea Nitrogen 20 mg/dl Creatinine 2.04 mg/dl Est Creatinine Clear Calc Drug Dose 22.1 ml/min Estimated GFR () 25.8 Estimated GFR (Non- 22.3 BUN/Creatinine Ratio 9.6 Random Glucose 69 mg/dl Calcium Level 7.4 mg/dl Magnesium Level 2.2 mg/dl Test 04/17/18 11:40 Bedside Glucose 79 mg/dl
[2018-04-17] MEDS ORDERED: LEVOTHYROXINE 100 MCG TAB PO STA (16:07)
[2018-04-17] MEDS ORDERED: MCRK20 PO (16:12)
[2018-04-17] MEDS ORDERED: MULT1LIQ6 PO (16:12)
[2018-04-17] MEDS ORDERED: ELQ25 PO (16:12)
[2018-04-17] MEDS ORDERED: CALC12504 PO (16:12)
[2018-04-17] MEDS ORDERED: NRN100 PO (16:12)
[2018-04-17] MEDS ORDERED: PRMT25 PO (16:12)
[2018-04-17] MEDS ORDERED: GABA-113 PO (16:12)
[2018-04-17] MEDS ORDERED: NVLGIPEN SC (16:12)
[2018-04-17] MEDS ORDERED: PRD20 PO (16:12)
[2018-04-17] MEDS ORDERED: DLCS PR (16:12)
[2018-04-17] MEDS ORDERED: SENN8.6T7 PO (16:12)
[2018-04-17] MEDS ORDERED: LINA1CAP2 PO (16:12)
[2018-04-17] MEDS ORDERED: MRLP17 PO (16:12)
[2018-04-17] MEDS ORDERED: Boost Plus Vanilla PO (16:12)
[2018-04-17] MEDS ORDERED: CRD200 PO (16:12)
--- NOTE | 2018-04-17 16:23 | Discharge Instructions ---
Discharge Instructions Date of Service Apr 17, 2018. Admission Reason for Admission: Abdominal pain Discharge Discharge Diagnosis / Problem: Tracheostomy, MRSA pneumonia, MANJULA, stercoral colitis Discharge Goals Goal(s): Improve disease control, Diagnostic testing, Therapeutic intervention Activity Recommendations Activity Level: Assistance Required Therapies: Physical Therapy, Occupational Therapy, Speech Therapy Shower/Bathe: no limitations . Additional Information Patient informed of condition: Yes Advance Directives: Yes DNR: Yes Level of Care: Acute Rehab Communicable Disease: Yes (MRSA) Prognosis: Stable Oxygen at (LPM): Trach collar at 28% Mahoney Catheter: Yes Instructions / Follow-Up Instructions / Follow-Up This patient is an 83 y/o female with a complex medical history to include COPD , chronic respiratory failure, hypoventilation syndrome, H/O DVTs, Hypothyroidism, T2DM, CKD Stage II/III, chronic diastolic CHF, steroid-induced myopathy, chronic anemia, elevated R Hemidiaphragm S/P Plication, major depressive disorder, restless leg syndrome, chronic lower back pain, who presented with right sided abd pain secondary to stercoral colitis and acute on Chronic Respiratory Failure with hypoxia. She underwent tracheostomy, has feeding difficulties and resolving acute kidney injury from vancomycin after treatment for MRSA pneumonia. She also had new onset atrial fibrillation upon admission which resolved with amiodarone treatment. Right-sided abdominal pain-recurrent and now improving. Initially was stercoral colitis on admission with lactic acidosis that resolved with movement of her bowels. Not much improved today but perhaps the Linzess is causing her abdominal cramping and she is having multiple bowel movement so far today. Hopefully this will help. -Continue aggressive bowel regimen-bisacodyl suppository as needed, MiraLAX, and senna/docusate twice daily -Continue her home Linzess 290 mcg once daily Multifocal pneumonia - 2nd to MRSA - completed 14 days of vanco. No recurrence so far Patient has a trach due likely to her weight, large neck and cushingoid features causing airway obstruction. changed trach to uncuffed.Size 6. Vanco level was toxic at end of treatment. Vanco has been held since level became toxic. New-onset a. fib - converted to NSR earlier this stay with amiodarone. -Continue amiodarone 200 mg once daily along w/ eliquis renally dose to 2.5 mg p.o. twice daily. -Should have follow-up with cardiology after discharge acute/chronic hypoxic respiratory failure - s/p trach placement. Acute component 2nd to pneumonia has resolved -Remain on trach collar continuously, no need for BiPAP at this point and overnight oximetry test confirms this again on the night of 04/16 as her pulse ox remained in the mid to high 90s all night on 28% trach collar -Needs follow-up with pulmonology after discharge dysphagia - patient refused permanent feeding tube. Still with minimal intake p.o. but improving Speech re-evaluated her 03/30/18 w/ bedside swallow and patient placed back on thickened liquids and mechanical soft diet. Tolerating such thus far. Allow [facility] soft diabetic diet as desired/tolerated, has had challenges meeting caloric intake. protein calorie malnutrition, moderate-severe degree - again she is refusing permanent feeding tube, offering oral feeds and supplements. Continues with minimal p.o. intake but is eating somewhat. COPD with mild exacerbation - weaning prednisone is not recommended given the risk that she may become hypotensive from adrenal insufficiency. She has been on steroids for a long time-needs to be slowly weaned over the next year with pulmonary as an outpatient-was tapered down to 20 mg daily at this point we will leave there for a while Steroid-induced myopathy-contributing to hypoventilation with need for trach placement-hopefully will improve as tapers off steroids and with aggressive rehab H/O DVTs - noted; continues on Eliquis. Acute on CKD stage 3 Consulted nephrology, resolving ATN, creatinine continues to improve today to 2.04 and with good amount of urine output -Follow BMP -Follow I's and O's and volume status -Should have follow-up with nephrology after discharge Hypothyroidism - compensated; cont synthroid. T2DM - controlled with insulin ssi. Actually with hypoglycemia here due to poor p.o. intake -Consider making diet regular rather than diabetic if this continues -Continue Accu-Cheks q. before meals at bedtime chronic diastolic CHF - compensated. In fact she has lost weight in the hospital. right-sided elevated Hemidiaphragm - S/P Plication in the past. Contributes to her hypoventilation depression - resumed SSRI Celexa 30 MG daily iron deficiency, pt has issues taking oral iron will received a dose of iv iron and follow anemia especially since on anticoagulation. on prevacid soltab -Would not give p.o. iron due to problems with severe constipation Rabia glabrata UTI-initial UA and urine culture were negative, repeat on 03/20 was worse and patient had symptoms of dysuria at that time. Urine culture growing Rabia glabrata -Completed course of IV caspofungin -Appreciate infectious disease consultation History of orthostatic hypotension-takes midodrine as needed for systolic blood pressure less than 120 Chronic lower back pain-restarted gabapentin 300 mg in the evening and 200 mg in the morning Hypokalemia-persists today, potassium down to 3.2 -Replace with 40 mEq KCl IV -Recommend follow-up BMP in 1 day and then fairly frequently follow renal function and potassium levels at rehab -Would recommend replacing with potassium p.o. RLS - requip., Gabapentin Hypocalcemia-restarted vitamin D, calcitriol, and calcium GERD-continues on PPI, restart Carafate from home DVT proph - eliquis. Disposition-stable for discharge to acute rehab today DNR-palliative care consultation was obtained early in the hospital stay, and patient did not participate in the conversation; her daughter refused any palliative care services Current Hospital Diet Patient's current hospital diet: Diabetes Type 2 Diet Discharge Diet Recommended Diet: Diabetes Type 2 Diet (T2DM, [employer]ch[employer] diet w/[place] Thick Liquids) Diet Texture: Mechanical Soft (ground) Liquid Consistency: [place] Thick Procedures Procedures Performed: Bronchoscopy and Change of Tracheostomy Tube Pending Studies Studies pending at discharge: no Physician Orders On Transfer IV Therapy: Has right upper extremity PICC line in place-this should remain in case needed in the future, but could eventually be discontinued Vital Signs: Daily Weigh: Daily Additional Orders: Check BMP, CBC in 1 day POLST Discussion: without POLST completion Laboratory Results Last 24 Hours Test 04/16/18 17:03 04/16/18 20:41 04/17/18 05:30 04/17/18 07:40 Bedside Glucose 92 mg/dl 108 mg/dl 77 mg/dl Sodium Level 143 mmol/L Potassium Level 3.2 mmol/L Chloride Level 107 mmol/L Carbon Dioxide Level 28 mmol/L Anion Gap 8.0 mmol/L Blood Urea Nitrogen 20 mg/dl Creatinine 2.04 mg/dl Est Creatinine Clear Calc Drug Dose 22.1 ml/min Estimated GFR () 25.8 Estimated GFR (Non- 22.3 BUN/Creatinine Ratio 9.6 Random Glucose 69 mg/dl Calcium Level 7.4 mg/dl Magnesium Level 2.2 mg/dl Test 04/17/18 11:40 Bedside Glucose 79 mg/dl Hemoglobin A1c Test 03/24/18 05:47 Range/Units Estimated Average Glucose 157 mg/dl Hemoglobin A1c 7.1 H 4.5-5.6 % Medical Emergencies . Who to Call and When: Medical Emergencies: If at any time you feel your situation is an emergency, please call 911 immediately. . Non-Emergent Contact Non-Emergency issues call your: Primary Care Provider, Overnight Houseperson, Pharmacy Specialist Call Non-Emergent contact if: temperature is above 101, your pain is not controlled, your pain is worsening, your pain is unusual for you, your pain is concerning you, you have any medication questions . . "Provider Documentation" section prepared by Sydnee Lockwood. . Core Measure Problem Core Measures: None
--- NOTE | 2018-04-17 16:31 | Discharge Summary ---
Discharge Summary Date of Service Apr 17, 2018. Discharge Summary Admission Date: Mar 15, 2018 at 18:50 Discharge Date: Apr 17, 2018 Discharge Disposition: Rehab Principal Diagnosis: Stercoral colitis, rapid atrial fibrillation, MRSA pneumonia Problems/Secondary Diagnoses: COPD Acute on chronic respiratory failure Hypoventilation syndrome H/O DVTs Hypothyroidism T2DM, on long-term insulin, controlled MANJULA in the setting of CKD Stage II/III Chronic diastolic CHF Steroid-induced myopathy Anemia of chronic disease and of iron deficiency Elevated R Hemidiaphragm S/P Plication Major depressive disorder Restless leg syndrome Chronic lower back pain Right sided abd pain secondary to stercoral colitis New-onset atrial fibrillation with rapid ventricular rate Status post tracheostomy Constipation Multifocal MRSA pneumonia Vancomycin toxicity Dysphagia Moderate-severe protein calorie malnutrition COPD with mild exacerbation Rabia glabrata UTI History of orthostatic hypotension Hypokalemia Hypocalcemia GERD Immunizations: Have You Had Influenza Vaccine: N/A Influenza Vaccine Date: Jun 18, 2012 History of Tetanus Vaccine?: Yes Tetanus Immunization Date: Mar 18, 2004 History of Pneumococcal: Yes Pneumococcal Date: May 31, 2010 History of Hepatitis B Vaccine: No Procedures: Tracheostomy placement Numerous chest x-rays CT head CT abdomen/pelvis [address] chest Numerous KUB x-rays Retroperitoneal ultrasound Consultations: Otorhinolaryngology Pulmonology Nephrology Palliative care Gastroenterology General surgery Cardiology Infectious disease Medication Reconciliation New Medications: Amiodarone HCl (Amiodarone HCl) 200 Mg Tab 200 MG PO DAILY for 30 Days, TAB Apixaban (Eliquis) 2.5 Mg Tab 2.5 MG PO BID for 30 Days, TAB Bisacodyl (Bisac-Evac) 10 Mg Supp 10 MG NH DAILY PRN for Constipation for 30 Days, SUPP Gabapentin (Gabapentin) 100 Mg Cap 200 MG PO QAM for 30 Days, CAP Insulin Aspart (Novolog Flexpen) 100 Units/Ml Inj 0 UNITS SC ACHS for 30 Days Midodrine (Midodrine HCl) 2.5 Mg Tab 2.5 MG PO TID@08,12,17 PRN for sbp <120 for 30 Days, TAB Multiple Vitamins W/ Minerals (Multivitamin) 1 Liq Liq 15 ML PO QAM for 30 Days Polyethylene (Miralax) 17 Gm Pow 17 GM PO DAILY PRN for Constipation for 30 Days Potassium Chloride (Klor-Con M20) 20 Meq Tabcr 20 MEQ PO QAM for 30 Days Prednisone (Prednisone) 20 Mg Tab 20 MG PO QAM for 30 Days, TAB indefinitely until tapered down by Pulmonology Sennosides-Docusate Sodium (Senokot S) 1 Tab Tab 1 TAB PO BID for 30 Days, TAB [Boost Plus Vanilla] () 1 CAN LIQD 0.5 CAN PO QID for 30 Days Changed Medications: Calcium Carbonate (Calcium Carbonate) 1,250 Mg Tab 1 TAB PO QAM for 30 Days (Changed from: 2500 MG; HS) Gabapentin (Neurontin) 300 Mg Cap 300 MG PO HS for 30 Days, CAP (Changed from: BID) Continued Medications: Acetaminophen (Tylenol Arthritis Ext Rel) 650 Mg Cplt 650 MG PO Q4 PRN for Pain, CAP Calcitriol (Calcitriol) 0.25 Mcg Cap 0.25 MCG PO DAILY TAKE WITH CALCIUM Cholecalciferol (D3-1000) 1,000 Unit Tab 1000 UNITS PO DAILY Citalopram Hydrobromide (Citalopram Hydrobromide) 20 Mg Tab 30 MG PO DAILY, TAB Cyanocobalamin (B-12) 1,000 Mcg Cap 1000 MCG PO QAM Dexlansoprazole (Dexilant) 60 Mg Cap 60 MG PO QAM Ipratropium-Albuterol (Duoneb) 3 Ml Nebu 1 TREATMENT INH QID, INHA Levothyroxine Sodium (Levothyroxine Sodium) 100 Mcg Tab 100 MCG PO DAILY, TAB Linaclotide (Linzess) 290 Mcg Cap 290 MCG PO DAILY for 30 Days (This prescription has been renewed) Melatonin (Melatonin) 10 Mg Tab 10 MG PO HS Polyethylene Glycol-Propylene (Systane Ultra) 1 Renetta Renetta 1 DROPS OP QID, #30 ML 4 Refills Riboflavin (Riboflavin) 400 Mg Tab 400 MG PO QAM Ropinirole Hydrochloride (Requip) 0.5 Mg Tab 0.5 MG PO HS TAKE 2 HR BEFORE HS Simvastatin (Zocor) 20 Mg Tab 20 MG PO HS, TAB Sucralfate (Carafate) 1 Gm/10 Ml Nicole 10 ML PO QID Discontinued Medications: Apixaban (Eliquis) 5 Mg Tab 5 MG PO BID, TAB Gritesdldi-Pefioij-Ovnkrcvb (Butal/Asa/Caff) 1 Cap Cap 1 CAP PO Q4 PRN for Headache Diclofenac Sodium (Topical) (Voltaren 1% Top Gel) 1 % Gel 1 APPLN TOP QID PRN for Pain Ferrous Sulfate (Kp Ferrous Sulfate) 325 Mg Tab 325 MG PO DAILY, TAB Gentamicin In Saline (Gentamicin Sulfate/0.9% S) 1 Inj Inj 2 SPRAYS LATASHA TID GENTAMYCIN 60MG IN 45 ML NASAL SOLUTION. Guaifenesin Ext Rel (Mucinex Ext Rel) 600 Mg Tab 1200 MG PO Q12 PRN for congestion, TAB Insulin Aspart (Novolog Flexpen) 100 Units/Ml Inj SQ QPM SLIDING SCALE Insulin Glargine (Basaglar Kwikpen) 100 Unit/Ml Inj 22 UNITS SQ QAM Lorazepam (Ativan) 0.5 Mg Tab 0.25-0.5 MG PO Q6 PRN for Sleep, TAB Midodrine (Midodrine HCl) 2.5 Mg Tab 2.5 MG PO TID FOR B/P between 130-160 Nystatin (Topical) (Nystop) 100,000 Unit/Gm Pow 1 APPLN TOP TID Potassium Chloride (K-Tabs) 10 Meq Tab 20 MEQ PO DAILY Prednisone Tab (Prednisone) 10 Mg Tab 40 MG PO DAILY, TAB Probiotic Product (Probiotic) 1 Tab Tab 1 TAB PO DAILY Spironolactone (Aldactone) 25 Mg Tab 25 MG PO BID, TAB Tiotropium [place] (Spiriva Respimat) 1.25 Mcg/Act Aer 2 PUFF INH BID Tramadol (Ultram) 50 Mg Tab 50 MG PO Q6H PRN for Pain Discharge Exam Patient started to move her bowels more with her Linzess. She says the abdominal pain on the right side is not better than yesterday. She did well and her overnight pulse oximetry test and stated 96% pretty much the whole night. Continues to make urine which is clear and renal function continues to improve. Musculoskeletal: + problem reported (Chronic lower back pain) All Other Systems: Reviewed and Negative Physical Exam General Appearance: WD/WN, no apparent distress Eyes: normal inspection, sclerae normal ENT: hearing grossly normal Neck: trachea midline (Tracheostomy and trach collar in place) Respiratory/Chest: lungs clear, normal breath sounds, no respiratory distress, no accessory muscle use Cardiovascular: regular rate, rhythm, no edema, no murmur Abdomen: normal bowel sounds, soft, + tenderness (Mild in the right side without guarding or rebound tenderness) Extremities: non-tender, normal inspection, no pedal edema, no calf tenderness Neurologic/Psychiatric: alert, + depressed affect Skin: normal color, warm/dry, no rash Hospital Course This patient is an 83 y/o female with a complex medical history to include COPD , chronic respiratory failure, hypoventilation syndrome, H/O DVTs, Hypothyroidism, T2DM, CKD Stage II/III, chronic diastolic CHF, steroid-induced myopathy, chronic anemia, elevated R Hemidiaphragm S/P Plication, major depressive disorder, restless leg syndrome, chronic lower back pain, who presented with right sided abd pain secondary to stercoral colitis and acute on Chronic Respiratory Failure with hypoxia. She underwent tracheostomy, has feeding difficulties and resolving acute kidney injury from vancomycin after treatment for MRSA pneumonia. She also had new onset atrial fibrillation upon admission which resolved with amiodarone treatment. Right-sided abdominal pain-recurrent and now improving. Initially was stercoral colitis on admission with lactic acidosis that resolved with movement of her bowels. Not much improved today but perhaps the Linzess is causing her abdominal cramping and she is having multiple bowel movement so far today. Hopefully this will help. -Continue aggressive bowel regimen-bisacodyl suppository as needed, MiraLAX, and senna/docusate twice daily -Continue her home Linzess 290 mcg once daily Multifocal pneumonia - 2nd to MRSA - completed 14 days of vanco. No recurrence so far Patient has a trach due likely to her weight, large neck and cushingoid features causing airway obstruction. changed trach to uncuffed.Size 6. Vanco level was toxic at end of treatment. Vanco has been held since level became toxic. New-onset a. fib - converted to NSR earlier this stay with amiodarone. -Continue amiodarone 200 mg once daily along w/ eliquis renally dose to 2.5 mg p.o. twice daily. -Should have follow-up with cardiology after discharge acute/chronic hypoxic respiratory failure - s/p trach placement. Acute component 2nd to pneumonia has resolved -Remain on trach collar continuously, no need for BiPAP at this point and overnight oximetry test confirms this again on the night of 04/16 as her pulse ox remained in the mid to high 90s all night on 28% trach collar -Needs follow-up with pulmonology after discharge dysphagia - patient refused permanent feeding tube. Still with minimal intake p.o. but improving Speech re-evaluated her 03/30/18 w/ bedside swallow and patient placed back on thickened liquids and mechanical soft diet. Tolerating such thus far. Allow [facility] soft diabetic diet as desired/tolerated, has had challenges meeting caloric intake. protein calorie malnutrition, moderate-severe degree - again she is refusing permanent feeding tube, offering oral feeds and supplements. Continues with minimal p.o. intake but is eating somewhat. COPD with mild exacerbation - weaning prednisone is not recommended given the risk that she may become hypotensive from adrenal insufficiency. She has been on steroids for a long time-needs to be slowly weaned over the next year with pulmonary as an outpatient-was tapered down to 20 mg daily at this point we will leave there for a while Steroid-induced myopathy-contributing to hypoventilation with need for trach placement-hopefully will improve as tapers off steroids and with aggressive rehab H/O DVTs - noted; continues on Eliquis. Acute on CKD stage 3 Consulted nephrology, resolving ATN, creatinine continues to improve today to 2.04 and with good amount of urine output -Follow BMP -Follow I's and O's and volume status -Should have follow-up with nephrology after discharge Hypothyroidism - compensated; cont synthroid. T2DM - controlled with insulin ssi. Actually with hypoglycemia here due to poor p.o. intake -Consider making diet regular rather than diabetic if this continues -Continue Accu-Cheks q. before meals at bedtime chronic diastolic CHF - compensated. In fact she has lost weight in the hospital. right-sided elevated Hemidiaphragm - S/P Plication in the past. Contributes to her hypoventilation depression - resumed SSRI Celexa 30 MG daily iron deficiency, pt has issues taking oral iron will received a dose of iv iron and follow anemia especially since on anticoagulation. on prevacid soltab -Would not give p.o. iron due to problems with severe constipation Rabia glabrata UTI-initial UA and urine culture were negative, repeat on 03/20 was worse and patient had symptoms of dysuria at that time. Urine culture growing Rabia glabrata -Completed course of IV caspofungin -Appreciate infectious disease consultation History of orthostatic hypotension-takes midodrine as needed for systolic blood pressure less than 120 Chronic lower back pain-restarted gabapentin 300 mg in the evening and 200 mg in the morning Hypokalemia-persists today, potassium down to 3.2 -Replace with 40 mEq KCl IV -Recommend follow-up BMP in 1 day and then fairly frequently follow renal function and potassium levels at rehab -Would recommend replacing with potassium p.o. RLS - requip., Gabapentin Hypocalcemia-restarted vitamin D, calcitriol, and calcium GERD-continues on PPI, restart Carafate from home DVT proph - eliquis. Disposition-stable for discharge to acute rehab today Total Time Spent: Greater than 30 minutes This includes examination of the patient, discharge planning, medication reconciliation, and communication with other providers. Discharge Instructions Please refer to the electronic Patient Visit Report (Discharge Instructions) for additional information. Follow-Up With PCP, nephrology, pulmonology, cardiology Additional Copies To Michael De Souza M.D.; Rossy Johnson MD; Jaun See PA-C; Chad Khalil MD
[2018-04-17] MEDS ORDERED: SUCRALFATE 1 GM/10 ML UDC PO SCH (17:00)
[2018-04-18] MEDS ORDERED: CHOLECALCIFEROL 1000 INTER.UNIT TAB PO SCH (08:00)
[2018-04-18] MEDS ORDERED: POTASSIUM CHLORIDE 20 MEQ TABCR PO SCH (08:00)
[2018-04-18] MEDS ORDERED: CALCITRIOL 0.25 MCG CAP PO SCH (08:00)
== END 2018-04-17 19:35 | DRG 4 ==
LOC: EDBD 14:14 → C.EDC 14:16 → C.2T 18:50 → ENRESERV 18:54 → C.2T 03-29 21:42 → CANRESERV 04-04 18:38 → ENRESERV 04-04 18:38 → C.4E 04-04 19:34
PROVIDERS: ADMIT Internal Medicine; ATTEND Family Medicine
PROC: 0B110F4 Bypass Trachea to Cutaneous with Tracheostomy Device, Open Approach (ICD-10-PCS; principal; 2018-03-23 07:15)
PROC: 0B21XFZ Change Tracheostomy Device in Trachea, External Approach (ICD-10-PCS; 2018-04-06)
DX: J96.21 Acute and chronic respiratory failure with hypoxia (principal); J44.1 Chronic obstructive pulmonary disease with (acute) exacerbation; I50.32 Chronic diastolic (congestive) heart failure; K56.7 Ileus, unspecified; J15.212 Pneumonia due to Methicillin resistant Staphylococcus aureus; K52.1 Toxic gastroenteritis and colitis; E66.2 Morbid (severe) obesity with alveolar hypoventilation; G72.0 Drug-induced myopathy; N17.9 Acute kidney failure, unspecified; J45.909 Unspecified asthma, uncomplicated; Z83.3 Family history of diabetes mellitus; T38.0X5A Adverse effect of glucocorticoids and synthetic analogues, initial encounter; Z82.49 Family history of ischemic heart disease and other diseases of the circulatory system; Z79.4 Long term (current) use of insulin; Z88.7 Allergy status to serum and vaccine; Z88.8 Allergy status to other drugs, medicaments and biological substances; Z88.2 Allergy status to sulfonamides; Z88.1 Allergy status to other antibiotic agents; Z86.718 Personal history of other venous thrombosis and embolism; E43 Unspecified severe protein-calorie malnutrition; E03.9 Hypothyroidism, unspecified; E11.21 Type 2 diabetes mellitus with diabetic nephropathy; E86.0 Dehydration; I48.0 Paroxysmal atrial fibrillation; Y92.019 Unspecified place in single-family (private) house as the place of occurrence of the external cause; G92 Toxic encephalopathy; B37.49 Other urogenital candidiasis; J98.6 Disorders of diaphragm; E87.2 Acidosis; K59.00 Constipation, unspecified; R13.10 Dysphagia, unspecified; G93.41 Metabolic encephalopathy; T36.8X1A Poisoning by other systemic antibiotics, accidental (unintentional), initial encounter; E87.6 Hypokalemia; E83.51 Hypocalcemia; K21.9 Gastro-esophageal reflux disease without esophagitis; F32.9 Major depressive disorder, single episode, unspecified; G25.81 Restless legs syndrome; E11.43 Type 2 diabetes mellitus with diabetic autonomic (poly)neuropathy; K22.4 Dyskinesia of esophagus; E66.01 Morbid (severe) obesity due to excess calories; G47.33 Obstructive sleep apnea (adult) (pediatric); Z86.711 Personal history of pulmonary embolism; I95.1 Orthostatic hypotension; R07.9 Chest pain, unspecified; I27.81 Cor pulmonale (chronic); Z79.52 Long term (current) use of systemic steroids; Z68.34 Body mass index [BMI] 34.0-34.9, adult

== ENCOUNTER 2018-04-24 10:48 | Inpatient (IN) | payer OTHER ==
[2018-04-24] VITALS (8 sets, daily range): BP systolic 139–167; BP diastolic 74–107; PULSE 71–85; TEMP 36.8; O2SAT 92–98; BMI 37.0
[~2018-04-24] VITALS: Ht 157.5 cm; Wt 79.7 kg
[~2018-04-24 10:48] MED LIST changes: -APIX1TAB3 PO; +Boost Plus Vanilla PO; +CALC12504 PO; +CALC1CAP36 PO; +CITA20TA4 PO; +CRD200 PO; +CRFL PO; +DEXL60CA4 PO; -DEXT30TA7 PO; +DLCS PR; +ELQ25 PO; -FERR1TAB13 PO; -FRCT/ PO; +GABA-113 PO; -GENT60IN4 NAE; -INSU100I23 SQ; +IPRA-64 INH; +LINA1CAP2 PO; +MCRK20 PO; +MELA1TAB48 PO; -METHYLPREDNISOLONE IV 40 MG in SYRINGE 0 ML IV SCH; +MRLP17 PO; +MULT1LIQ6 PO; +NRN100 PO; +NVLGIPEN SC; +POLY1SOL6 OP; -POTA10TA PO; +PRD20 PO; -PRED10TA PO; -PROB1TAB16 PO; +ROPI0.5T PO; +SENN8.6T7 PO; -SPIR25TA PO; -SPRIN/30 INH; -SUCR5SUS PO; -TRAM-10 PO
[2018-04-24] MEDS ORDERED: ALBUT/IPRATROP 3MG/0.5MG NEB 3 ML VIAL INH STA (11:14)
--- NOTE | 2018-04-24 11:14 | EMERGENCY ROOM VISIT NOTE ---
History Report prepared by Suzanna: Ramo Schuler Under the Supervision of: Dr. Alexx Nicole M.D. First contact with patient: 11:02 Chief Complaint: RESPIRATORY PROBLEMS Stated Complaint: RESPIRATORY History of Present Illness This patient is an 83 y/o female with a complex medical history to include COPD , chronic respiratory failure, hypoventilation syndrome, H/O DVTs, Hypothyroidism, T2DM, CKD Stage II/III, chronic diastolic CHF, steroid-induced myopathy, chronic anemia, elevated R Hemidiaphragm S/P Plication, major depressive disorder, restless leg syndrome, chronic lower back pain,who presented with respiratory problems and a cough that has been constant. HPI is limited secondary to the patient's condition but some information was obtained from her daughter. He daughter states that she has been being treated at [facility] and has a trach placed. She also stated that the patient is having more trouble breathing on her right side and that she was dizzy today because of being hypotensive. The daughter also stated that the patient has low H&H, a cough, a PICC line in right arm, and a baseline oxygen of 3L after the trach was put in. Source of History: family History Limited By: AMS Onset: Today Position: chest Symptom Intensity: moderate Quality: other (SOB) Timing: constant Associated Symptoms: + cough Review of Systems ROS is limited secondary to AMS. 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 (14) UMANA (dyspnea on exertion) (15) Dyspnea, unspecified (16) Gastroesophageal reflux disease (17) Metabolic encephalopathy (18) MRSA pneumonia (19) Pneumonia (20) Sepsis (21) Syncope due to orthostatic hypotension Family History Diabetes mellitus FH: cancer FH: gallbladder disease FH: heart disease FH: lung disease Hypertension Kidney disease or stones Social History Smoking Status: Never Smoker Alcohol Use: none Drug Use: none Marital Status: Housing Status: lives with family Occupation Status: retired Current/Historical Medications Scheduled Albuterol Hfa (Ventolin Hfa), 2-4 PUFFS INH Q6H Amiodarone HCl (Amiodarone HCl), 200 MG PO DAILY Apixaban (Eliquis), 2.5 MG PO BID Atorvastatin (Lipitor), 1 TAB PO DAILY Calcitriol (Calcitriol), 0.25 MCG PO DAILY Calcium Carbonate (Calcium Carbonate), 1 TAB PO QAM Cholecalciferol (D3-1000), 1,000 UNITS PO DAILY Citalopram Hydrobromide (Citalopram Hydrobromide), 30 MG PO DAILY Cyanocobalamin (B-12), 1,000 MCG PO QAM Dexlansoprazole (Dexilant), 60 MG PO QAM Gabapentin (Neurontin), 300 MG PO HS Gabapentin (Gabapentin), 200 MG PO QAM Insulin Aspart (Novolog Flexpen), 0 UNITS SC ACHS Ipratropium-Albuterol (Duoneb), 1 TREATMENT INH QID Levothyroxine Sodium (Levothyroxine Sodium), 100 MCG PO DAILY Linaclotide (Linzess), 290 MCG PO DAILY Melatonin (Melatonin), 10 MG PO HS Multiple Vitamins W/ Minerals (Multivitamin), 15 ML PO QAM Pantoprazole (Protonix), 1 TAB PO DAILY Polyethylene Glycol-Propylene (Systane Ultra), 1 DROPS OP QID Potassium Chloride (Klor-Con M20), 20 MEQ PO QAM Prednisone (Prednisone), 20 MG PO QAM Riboflavin (Riboflavin), 400 MG PO QAM Ropinirole Hydrochloride (Requip), 0.5 MG PO HS Sennosides-Docusate Sodium (Senokot S), 1 TAB PO BID Simvastatin (Zocor), 20 MG PO HS Sucralfate (Carafate), 10 ML PO QID [Boost Plus Vanilla], 0.5 CAN PO QID Scheduled PRN Acetaminophen (Tylenol Arthritis Ext Rel), 650 MG PO Q4 PRN for Pain Bisacodyl (Bisac-Evac), 10 MG NC DAILY PRN for Constipation Midodrine (Midodrine HCl), 2.5 MG PO TID@08,12,17 PRN for sbp <120 Polyethylene (Miralax), 17 GM PO DAILY PRN for Constipation Tramadol (Ultram), 1 TAB PO TID PRN for Pain Miscellaneous Medications Magnesium Hydroxide (Milk Of Magnesia), 30 ML PO Allergies Coded Allergies: Adhesives (Verified Allergy, Severe, TAPE-REDNESS, BLISTERS, 03/19/18) Pneumococcal Vaccine (Verified Allergy, Severe, SHORTNESS OF BREATH, ) Metronidazole (Verified Allergy, Intermediate, skin rash, 03/19/18) allergic to generic form Phenazopyridine (Verified Allergy, Intermediate, abdominal pain/rash, ) Erythromycin (Verified Allergy, Mild, RASH, 03/19/18) Salicylates (Verified Allergy, Unknown, pt states rash with ASA 325 but not ASA 81mg, 03/19/18) Sulfa Antibiotics (Verified Allergy, Unknown, ON MED LIST, 03/19/18) Tetracycline (Verified Allergy, Unknown, RASH, 03/19/18) Morphine (Verified Adverse Reaction, Intermediate, urinary retention - oral morphine only, 03/19/18) Diltiazem (Verified Adverse Reaction, Mild, FLUID RETENTION, 03/19/18) Metoclopramide (Verified Adverse Reaction, Mild, TREMORS, 03/19/18) Bacitracin (Verified Adverse Reaction, Unknown, "MAKES IT WORSE"-OK IF NOT OTC MEDICATION, 03/19/18) OKAY IF NOT OVER THE COUNTER MEDICATION Physical Exam Vital Signs Date Time Temp Pulse Resp B/P (MAP) Pulse Ox O2 Delivery O2 Flow Rate FiO2 04/24/18 13:08 89 04/24/18 12:33 131/68 04/24/18 12:18 84 20 95 04/24/18 11:48 87 24 96 04/24/18 11:40 85 26 92 Trach Collar 28 04/24/18 11:20 92 Humidified Oxygen 6.0 25 Trach Collar 04/24/18 11:18 83 25 92 04/24/18 11:09 122/76 04/24/18 11:07 91 Humidified Oxygen 6.0 28 Trach Collar 04/24/18 11:07 37.6 87 20 122/76 92 Humidified Oxygen 6.0 28 04/24/18 11:01 91 04/24/18 10:54 122/76 Physical Exam GENERAL: Eyes closed, follows commands, NAD HENT: NCAT. Trach is in place EYES: Normal conjunctiva. Sclera non-icteric. PERRL. No anisocoria. NECK: Supple. No nuchal rigidity. FROM. RESPIRATORY: Bilateral bibasilar crackles CARDIAC: RRR, no MRG ABDOMEN: Soft, NTND, BS+ : Catheter in place MSK: No chest wall TTP, no LE edema NEURO: GCS 14, CN 2-12 intact, moves all 4s on command SKIN: No rash or jaundice noted. Medical Decision & Procedures ER Provider Diagnostic Interpretation: Radiology results as stated below per my review and radiologist interpretation: CHEST ONE VIEW PORTABLE CLINICAL HISTORY: Respiratory distress. Dyspnea. COMPARISON STUDY: Chest CT March 24, 2018 and chest radiograph April 05, 2018. FINDINGS: Note is made of a right PICC, bilateral shoulder arthroplasties, tracheostomy tube as well as multilevel fusions within the spine. Subcutaneous gas shown on exam of April 05, 2018 is no longer visualized. Linear left lung opacity favors atelectasis. Patient is rotated. Right basilar opacity is noted. A small right pleural effusion is noted. There is no pneumothorax. Cardiomediastinal silhouette is stable. Pulmonary vascularity is normal. Several subacute to chronic right rib fractures are noted IMPRESSION: 1. Right basilar opacity which may reflect atelectasis or pneumonia. Small right pleural effusion. 2. No pneumothorax. Electronically signed by: Jake Lo M.D. 04/24/2018 11:53 AM Dictated Date/Time: 04/24/2018 11:50 AM Laboratory Results Test 04/24/18 11:14 04/24/18 11:34 04/24/18 13:05 Creatine Kinase MB Ratio (0-3.0) Nucleated RBC Absolute Count (auto) 0.03 K/uL (0-0) Neutrophils % (Manual) 86.1 % Lymphocytes % (Manual) 10.4 % Monocytes % (Manual) 0.9 % Eosinophils % (Manual) 0.9 % Metamyelocytes % 1.7 % Nucleated Red Blood Cells % 0.3 % Neutrophils # (Manual) 7.96 K/uL (1.4-6.5) Total Absolute Neutrophils 7.96 K/uL (1.4-6.5) Lymphocytes # (Manual) 0.96 K/uL (1.2-3.4) Total Absolute Lymphocytes 0.96 K/uL (1.2-3.4) Monocytes # (Manual) 0.08 K/uL (0.11-0.59) Eosinophils # (Manual) 0.08 K/uL (0-0.5) Metamyelocytes # 0.16 K/uL (0-0) Red Blood Cell Morphology Unremarkable Prothrombin Time 10.3 SECONDS (9.0-12.0) Prothromb Time International Ratio 1.0 (0.9-1.1) Activated Partial Thromboplast Time 26.9 SECONDS (21.0-31.0) Partial Thromboplastin Ratio 1.0 Venous Blood pH 7.44 (7.36-7.41) Venous Blood Partial Pressure CO2 45 mmHg (38.0-50.0) Venous Blood Partial Pressure O2 34 mmHg Venous Blood HCO3 30 mmol/L Venous Blood Oxygen Saturation 63.6 % Venous Blood Base Excess 4.8 mEq/L Lactic Acid Level 1.3 mmol/L (0.4-2.0) Phosphorus Level 2.2 mg/dl (2.5-4.9) Magnesium Level 1.7 mg/dl (1.8-2.4) Total Bilirubin 0.6 mg/dl (0.2-1) Aspartate Amino Transf (AST/SGOT) 18 U/L (15-37) Alanine Aminotransferase (ALT/SGPT) 30 U/L (12-78) Alkaline Phosphatase 90 U/L (45-117) Creatine Kinase MB < 1.0 ng/ml (0.5-3.6) Troponin I < 0.015 ng/ml (0-0.045) Pro-B-Type Natriuretic Peptide 566 pg/ml (0-1800) Total Protein 5.5 gm/dl (6.4-8.2) Albumin 2.5 gm/dl (3.4-5.0) Globulin 3.0 gm/dl (2.5-4.0) Albumin/Globulin Ratio 0.8 (0.9-2) Urine Color YELLOW Urine Appearance CLOUDY (CLEAR) Urine pH 5.0 (4.5-7.5) Urine Specific [place] 1.020 (1.000-1.030) Urine Protein 2+ (NEG) Urine Glucose (UA) NEG (NEG) Urine Ketones TRACE (NEG) Urine Occult Blood 2+ (NEG) Urine Nitrite NEG (NEG) Urine Bilirubin NEG (NEG) Urine Urobilinogen NEG (NEG) Urine Leukocyte Esterase LARGE (NEG) Urine WBC (Auto) >30 /hpf (0-5) Urine RBC (Auto) 5-10 /hpf (0-4) Urine Hyaline Casts (Auto) 1-5 /lpf (0-5) Urine Epithelial Cells (Auto) >30 /lpf (0-5) Urine Bacteria (Auto) NEG (NEG) Urine Pathogenic Casts /lpf (0) Urine Yeast (Auto) (NONE PRSENT) Laboratory results reviewed by me Medications Administered Medications (Trade) Dose Ordered Sig/Natasha Route Start Time Stop Time Status Last Admin Dose Admin Albuterol/ Ipratropium (Duoneb) 9 ml ONE STAT INH 04/24/18 11:14 04/24/18 11:17 DC 04/24/18 11:40 9 ML Vancomycin HCl 1000 mg/Sodium Chloride 270 ml @ 125 mls/hr NOW STAT IV 04/24/18 12:37 04/24/18 14:46 DC 04/24/18 13:11 125 MLS/HR ECG Per My Interpretation Indication: SOB/dyspnea Rate (beats per minute): 90 Rhythm: normal sinus Findings: other (Normal intervals, normal axis, no sts changes, no TWI) ED Course 1106: The patient was evaluated in room A2. A complete history and physical exam was performed. 1234: [facility] the patient's [facility] The patient will be evaluated for further treatment and disposition by her. 1305:Discussed the patient's case with Dr. Georges - Palliative Care. Medical Decision Nursing notes reviewed. Ancillary studies and prior records reviewed. This patient is an 83 y/o female with a complex medical history to include COPD , chronic respiratory failure, hypoventilation syndrome, H/O DVTs, Hypothyroidism, T2DM, CKD Stage II/III, chronic diastolic CHF, steroid-induced myopathy, chronic anemia, elevated R Hemidiaphragm S/P Plication, major depressive disorder, restless leg syndrome, chronic lower back pain,who presented with respiratory problems and a cough that has been constant. Differential diagnosis: Etiologies such as infections, reactive airway disease, pneumonia, pneumothorax , COPD, CHF, cardiac ischemia, pulmonary embolism, musculoskeletal, gastrointestinal, as well as others were entertained. Patient was seen and evaluated the bedside. I did receive a medical command because the patient is currently at [facility] for some rehabilitation. The patient was recently trached. The patient has had some respiratory difficulty. The patient has complained of cough. The patient did have a recent multifocal pneumonia which was treated inpatient and no current antibiotics being given. Patient does have a right upper extremity PICC line. Patient is afebrile has stable vital signs. The patient is currently on 6 L via trach collar. Patient does have some bibasilar crackles and does have some anterior coarse breath sounds but no posterior coarse breath sounds. Patient does have a urine catheter in place. Patient did have blood work completed, VBG, lactic acid, EKG, troponin, chest x-ray, blood and urine cultures. Patient's vital signs were stable. Patient is afebrile. Low grade temp of 99. Patient's white blood cell count within normal limits. Patient does have some chronic anemia today is 8.8 hemoglobin. Patient has a normal lactate and gas. Patient's chest x-ray concerning for possible atelectasis versus pneumonia. Given the patient's dysphasia but recent MRSA trach sputum culture I did discuss the case with the on-call hospitalist who agreed to further evaluate and treat the patient. Vancomycin was ordered in the interim. Medication Reconcilliation Current Medication List: was personally reviewed by me Blood Pressure Screening Patient's blood pressure: Normal blood pressure Consults Time Called: 1230 Consulting Physician: Dr. Sean Clark Hospitalist Returned Call: 1234 Discussed the patient's case with Dr. Sean Clark Hospitalist . The patient will be evaluated for further treatment and disposition by her. Additional Consults: Time Called: 1305 Consulted Physician: Dr. Georges Returned Call: 1305 Additional Comments: Discussed the patient's case with Dr. Georges - Palliative Care. Impression Primary Impression: Aspiration pneumonia Scribe Attestation The scribe's documentation has been prepared under my direction and personally reviewed by me in its entirety. I confirm that the note above accurately reflects all work, treatment, procedures, and medical decision making performed by me. Departure Information Dispostion Being Evaluated By Hospitalist Michael Tabares M.D. (PCP) Forms HOME CARE DOCUMENTATION FORM, IMPORTANT VISIT INFORMATION, WORK / SCHOOL INSTRUCTIONS Patient Instructions My [facility] Problem Qualifiers Primary Impression: Aspiration pneumonia Aspiration pneumonia type: unspecified Laterality: right Lung location: lower lobe of lung Qualified Codes: J69.0 - Pneumonitis due to inhalation of food and vomit
[2018-04-24 11:45] LABS: HEMATOCRIT 28.2 % (37-47); HEMOGLOBIN 8.8 g/dL (12.0-16.0); MEAN CELL VOLUME 95.6 fL (80-100); MEAN CORPUSCULAR HEMOGLOBIN 29.8 pg (25-34); MEAN CORPUSCULAR HGB CONC 31.2 g/dl (32-36); MEAN PLATELET VOLUME 10.7 fL (7.4-10.4); NUCLEATED RED BLOOD CELL ABS 0.03 K/uL (0-0); PLATELET COUNT 185 K/uL (130-400); RED CELL DISTRIBUTION WIDTH CV 16.5 % (11.5-14.5); RED CELL DISTRIBUTION WIDTH SD 57.1 fL (36.4-46.3); WHITE BLOOD COUNT 9.25 K/uL (4.8-10.8)
[2018-04-24 11:53] LABS: PTT PATIENT 26.9 SECONDS (21.0-31.0)
--- NOTE | 2018-04-24 11:54 | DIAGNOSTIC IMAGING REPORT ---
CHEST ONE VIEW PORTABLE CLINICAL HISTORY: Respiratory distress. Dyspnea. COMPARISON STUDY: Chest CT March 24, 2018 and chest radiograph April 05, 2018. FINDINGS: Note is made of a right PICC, bilateral shoulder arthroplasties, tracheostomy tube as well as multilevel fusions within the spine. Subcutaneous gas shown on exam of April 05, 2018 is no longer visualized. Linear left lung opacity favors atelectasis. Patient is rotated. Right basilar opacity is noted. A small right pleural effusion is noted. There is no pneumothorax. Cardiomediastinal silhouette is stable. Pulmonary vascularity is normal. Several subacute to chronic right rib fractures are noted IMPRESSION: 1. Right basilar opacity which may reflect atelectasis or pneumonia. Small right pleural effusion. 2. No pneumothorax. Electronically signed by: Jake Lo M.D. 04/24/2018 11:53 AM Dictated Date/Time: 04/24/2018 11:50 AM
[2018-04-24 12:05] LABS: ALBUMIN 2.5 gm/dl (3.4-5.0); ALKALINE PHOSPHATASE 90 U/L (45-117); ALT/SGPT 30 U/L (12-78); AST/SGOT 18 U/L (15-37); BLOOD UREA NITROGEN 24 mg/dl (7-18); CALCIUM 7.7 mg/dl (8.5-10.1); CARBON DIOXIDE 28 mmol/L (21-32); CKMB < 1.0 ng/ml (0.5-3.6); CREATININE 1.45 mg/dl (0.60-1.20); GLUCOSE 144 mg/dl (70-99); POTASSIUM 3.7 mmol/L (3.5-5.1); SODIUM 141 mmol/L (136-145); TOTAL PROTEIN 5.5 gm/dl (6.4-8.2)
[2018-04-24] MEDS ORDERED: PANT1TAB3 PO (12:28)
[2018-04-24] MEDS ORDERED: ATOR10TA82 PO (12:28)
[2018-04-24] MEDS ORDERED: TRAM-10 PO (12:28)
[2018-04-24] MEDS ORDERED: VNTHFA/IN INH (12:28)
[2018-04-24] MEDS ORDERED: MOML PO (12:28)
[2018-04-24] MEDS ORDERED: VANCOMYCIN IV 1,000 MG in SODIUM CHLORIDE 0.9% 250ML 250 ML IV STA (12:37)
[2018-04-24] MEDS ORDERED: VANCOMYCIN CONSULT ACTIVE PRN ×2 (12:45→13:45)
[2018-04-24] MEDS ORDERED: BISACODYL 10 MG SUPP PR PRN (13:45)
[2018-04-24] MEDS ORDERED: MIDODRINE 2.5 MG TAB PO PRN (13:45)
[2018-04-24] MEDS ORDERED: POLYETHYLENE (MIRALAX) 17 GM PACK PO PRN (13:45)
[2018-04-24] MEDS ORDERED: PIPERACILL/TAZOBAC CONSULT ACTIVE PRN (13:45)
[2018-04-24] MEDS ORDERED: PIPERACILLIN/TAZOBACTAM 4.5 GM/100ML D5W IV ONE (14:30)
[2018-04-24 14:32] LABS: PHOSPHORUS 2.2 mg/dl (2.5-4.9)
[2018-04-24] MEDS: ALBUT/IPRATROP 3MG/0.5MG NEB 3 ML VIAL INH SCH ×2 (15:30→19:33)
[2018-04-24] MEDS ORDERED: SODIUM CHLORIDE 0.9% 1000ML 1,000 ML IV SCH (15:30)
--- NOTE | 2018-04-24 15:57 | Pharmacy Progress Note ---
Pharmacy Antibiotic Consult Date of Service: Apr 24, 2018. Pharmacy Dosing Scope Pharmacy is consulted to initiate vancomycin/zosyn IV dosing therapy for possible pneumonia, order appropriate labs and adjust drug dose/frequency. Patient with History of MRSA in sputum (03/24/18). Subjective The patient is a 83 year old female admitted on Apr 24, 2018 at 13:47. Objective Height (Feet): 5 Height (Inches): 2.00 Weight (Kilograms): 91.700 Lab Results (24hrs): Test 04/24/18 11:14 04/24/18 11:34 04/24/18 13:05 Creatine Kinase MB Ratio (0-3.0) White Blood Count 9.25 K/uL (4.8-10.8) Red Blood Count 2.95 M/uL (4.2-5.4) Hemoglobin 8.8 g/dL (12.0-16.0) Hematocrit 28.2 % (37-47) Mean Corpuscular Volume 95.6 fL (80-100) Mean Corpuscular Hemoglobin 29.8 pg (25-34) Mean Corpuscular Hemoglobin Concent 31.2 g/dl (32-36) Platelet Count 185 K/uL (130-400) Mean Platelet Volume 10.7 fL (7.4-10.4) RDW Standard Deviation 57.1 fL (36.4-46.3) RDW Coefficient of Variation 16.5 % (11.5-14.5) Nucleated RBC Absolute Count (auto) 0.03 K/uL (0-0) Neutrophils % (Manual) 86.1 % Lymphocytes % (Manual) 10.4 % Monocytes % (Manual) 0.9 % Eosinophils % (Manual) 0.9 % Metamyelocytes % 1.7 % Nucleated Red Blood Cells % 0.3 % Neutrophils # (Manual) 7.96 K/uL (1.4-6.5) Total Absolute Neutrophils 7.96 K/uL (1.4-6.5) Lymphocytes # (Manual) 0.96 K/uL (1.2-3.4) Total Absolute Lymphocytes 0.96 K/uL (1.2-3.4) Monocytes # (Manual) 0.08 K/uL (0.11-0.59) Eosinophils # (Manual) 0.08 K/uL (0-0.5) Metamyelocytes # 0.16 K/uL (0-0) Red Blood Cell Morphology Unremarkable Prothrombin Time 10.3 SECONDS (9.0-12.0) Prothromb Time International Ratio 1.0 (0.9-1.1) Activated Partial Thromboplast Time 26.9 SECONDS (21.0-31.0) Partial Thromboplastin Ratio 1.0 Venous Blood pH 7.44 (7.36-7.41) Venous Blood Partial Pressure CO2 45 mmHg (38.0-50.0) Venous Blood Partial Pressure O2 34 mmHg Venous Blood HCO3 30 mmol/L Venous Blood Oxygen Saturation 63.6 % Venous Blood Base Excess 4.8 mEq/L Sodium Level 141 mmol/L (136-145) Potassium Level 3.7 mmol/L (3.5-5.1) Chloride Level 104 mmol/L (98-107) Carbon Dioxide Level 28 mmol/L (21-32) Anion Gap 8.0 mmol/L (3-11) Blood Urea Nitrogen 24 mg/dl (7-18) Creatinine 1.45 mg/dl (0.60-1.20) Estimated GFR () 39.0 Estimated GFR (Non- 33.7 BUN/Creatinine Ratio 16.6 (10-20) Random Glucose 144 mg/dl (70-99) Lactic Acid Level 1.3 mmol/L (0.4-2.0) Calcium Level 7.7 mg/dl (8.5-10.1) Phosphorus Level 2.2 mg/dl (2.5-4.9) Magnesium Level 1.7 mg/dl (1.8-2.4) Total Bilirubin 0.6 mg/dl (0.2-1) Aspartate Amino Transf (AST/SGOT) 18 U/L (15-37) Alanine Aminotransferase (ALT/SGPT) 30 U/L (12-78) Alkaline Phosphatase 90 U/L (45-117) Creatine Kinase MB < 1.0 ng/ml (0.5-3.6) Troponin I < 0.015 ng/ml (0-0.045) Pro-B-Type Natriuretic Peptide 566 pg/ml (0-1800) Total Protein 5.5 gm/dl (6.4-8.2) Albumin 2.5 gm/dl (3.4-5.0) Globulin 3.0 gm/dl (2.5-4.0) Albumin/Globulin Ratio 0.8 (0.9-2) Urine Color YELLOW Urine Appearance CLOUDY (CLEAR) Urine pH 5.0 (4.5-7.5) Urine Specific [place] 1.020 (1.000-1.030) Urine Protein 2+ (NEG) Urine Glucose (UA) NEG (NEG) Urine Ketones TRACE (NEG) Urine Occult Blood 2+ (NEG) Urine Nitrite NEG (NEG) Urine Bilirubin NEG (NEG) Urine Urobilinogen NEG (NEG) Urine Leukocyte Esterase LARGE (NEG) Urine WBC (Auto) >30 /hpf (0-5) Urine RBC (Auto) 5-10 /hpf (0-4) Urine Hyaline Casts (Auto) 1-5 /lpf (0-5) Urine Epithelial Cells (Auto) >30 /lpf (0-5) Urine Bacteria (Auto) NEG (NEG) Urine Pathogenic Casts /lpf (0) Urine Yeast (Auto) (NONE PRSENT) Assessment & Plan Loading dose: 1000mg (given in ED @1311) + 750g mg IV (given @ 1615) to complete the load then will dose by random levels as renal function has greatly fluctuated in recent admissions. Goal trough level estimate: between 15 - 20 mcg/mL. Peak and trough or random level has been ordered for: @ 0444. Pharmacy will continue to follow and will adjust dose/frequency as necessary. Thank you
[2018-04-24] MEDS ORDERED: DEXTROSE 50% 50 ML SYR IV PRN (16:00)
[2018-04-24] MEDS ORDERED: GLUCAGON FOR INJ 1 MG VIAL IM PRN (16:00)
[2018-04-24] MEDS ORDERED: GLUCOSE 40% GEL 15 GM TUBE PO PRN (16:00)
[2018-04-24] MEDS ORDERED: PIPERACILL/TAZOBAC IV 3.375 GM in D5W 100 ML IV ONE (16:00)
[2018-04-24] MEDS ORDERED: GLUCOSE 10 TABS/TUBE PO PRN (16:00)
[2018-04-24] MEDS ORDERED: CARBOHYDRATES FOR HYPOGLYCEMIA PO PRN (16:00)
[2018-04-24] MEDS: INSULIN ASPART 100 UNITS/ML 3 ML PEN SC SCH ×2 (16:15→20:57)
[2018-04-24] MEDS ORDERED: VANCOMYCIN IV 750 MG in SODIUM CHLORIDE 0.9% 250ML 250 ML IV ONE (16:15)
[2018-04-24] MEDS ORDERED: INSULIN GLARGINE SOLOSTAR 100 UNITS/ML 3 ML PEN SQ SCH (16:30)
[2018-04-24] MEDS: SUCRALFATE 1 GM/10 ML UDC PO SCH ×2 (16:58→20:55)
[2018-04-24] MEDS ORDERED: PIPERACILL/TAZOBAC IV 3.375 GM in DEXTROSE 5% 100ML 100 ML IV SCH (18:00)
[2018-04-24] MEDS: PIPERACILL/TAZOBAC IV 3.375 GM in D5W 100ML IV SCH (20:54)
[2018-04-24] MEDS: APIXABAN 2.5 MG TAB PO SCH (20:55)
[2018-04-24] MEDS: ROPINIROLE HCL 0.25 MG TAB PO SCH (20:56)
[2018-04-24] MEDS: GABAPENTIN 300 MG CAP PO SCH (20:56)
[2018-04-24] MEDS: DOCUSATE SODIUM/SENNA 50/8.6MG TAB PO SCH (20:57)
[2018-04-24] MEDS: INSULIN GLARGINE SOLOSTAR 100 UNITS/ML 3 ML PEN SQ SCH (20:59)
[2018-04-24] MEDS ORDERED: VANCOMYCIN IV 1,000 MG in SODIUM CHLORIDE 0.9% 250ML 250 ML IV SCH (21:00)
--- NOTE | 2018-04-24 21:23 | History and Physical ---
History & Physical Date & Time of Service: Apr 24, 2018 at 20:45 Chief Complaint: Respiratory Primary Care Physician: Michael De Souza M.D. History of Present Illness Source: patient, family Patient is an 83yo female with complicated past medical history, recent prolonged hospital admission from 03/15 - 04/17 for MRSA pneumonia. Patient had tracheostomy placed during that admission. Discharged to [facility]. Daughter reports that she is concerned about the care she has been receiving at [facility]. States that she noticed many times that her mother's blood pressure was lower than goal and she was not administered her Midodrine. Daughter also noted blood in the urine. Per report, patient was eating peaches yesterday when one got stuck in her throat and she began coughing. No respiratory distress noted at the time. However, patient developed tachypnea and difficulty breathing this AM. Patient' s daughter was called and she was transported to [facility]. Patient presently complaining of chest pain and rib pain when she coughs. No additional complaints at present. No increase in secretions of suctioning needs, no increase in O2 requirement. Patient is on 6L via trach collar. Deep suctioned in the ER with small amount of thick secretions. Non-purulent, non-bloody ER Course: Lantus 6u, Vanc, Zosyn Past Medical/Surgical History COPD Acute on chronic respiratory failure Hypoventilation syndrome H/O DVTs Hypothyroidism T2DM, on long-term insulin, controlled MANJULA in the setting of CKD Stage II/III Chronic diastolic CHF Steroid-induced myopathy Anemia of chronic disease and of iron deficiency Elevated R Hemidiaphragm S/P Plication Major depressive disorder Restless leg syndrome Chronic lower back pain Right sided abd pain secondary to stercoral colitis New-onset atrial fibrillation with rapid ventricular rate Status post tracheostomy Constipation Multifocal MRSA pneumonia Vancomycin toxicity Dysphagia Moderate-severe protein calorie malnutrition COPD with mild exacerbation Rabia glabrata UTI History of orthostatic hypotension Hypokalemia Hypocalcemia GERD Family History Diabetes mellitus FH: cancer FH: gallbladder disease FH: heart disease FH: lung disease Hypertension Kidney disease or stones Social History Smoking Status: Never Smoker Alcohol Use: none Drug Use: none Marital Status: Housing status: lives with family Occupational Status: retired Immunizations History of Influenza Vaccine: N/A Influenza Vaccine Date: Jun 18, 2012 History of Tetanus Vaccine?: Yes Tetanus Immunization Date: Mar 18, 2004 History of Pneumococcal: Yes Pneumococcal Date: May 31, 2010 History of Hepatitis B Vaccine: No Allergies Coded Allergies: Adhesives (Verified Allergy, Severe, TAPE-REDNESS, BLISTERS, 03/19/18) Pneumococcal Vaccine (Verified Allergy, Severe, SHORTNESS OF BREATH, ) Metronidazole (Verified Allergy, Intermediate, skin rash, 03/19/18) allergic to generic form Phenazopyridine (Verified Allergy, Intermediate, abdominal pain/rash, ) Erythromycin (Verified Allergy, Mild, RASH, 03/19/18) Salicylates (Verified Allergy, Unknown, pt states rash with ASA 325 but not ASA 81mg, 03/19/18) Sulfa Antibiotics (Verified Allergy, Unknown, ON MED LIST, 03/19/18) Tetracycline (Verified Allergy, Unknown, RASH, 03/19/18) Morphine (Verified Adverse Reaction, Intermediate, urinary retention - oral morphine only, 03/19/18) Diltiazem (Verified Adverse Reaction, Mild, FLUID RETENTION, 03/19/18) Metoclopramide (Verified Adverse Reaction, Mild, TREMORS, 03/19/18) Bacitracin (Verified Adverse Reaction, Unknown, "MAKES IT WORSE"-OK IF NOT OTC MEDICATION, 03/19/18) OKAY IF NOT OVER THE COUNTER MEDICATION Home Medications Scheduled Albuterol Hfa (Ventolin Hfa), 2-4 PUFFS INH Q6H Amiodarone HCl (Amiodarone HCl), 200 MG PO DAILY Apixaban (Eliquis), 2.5 MG PO BID Atorvastatin (Lipitor), 1 TAB PO DAILY Calcitriol (Calcitriol), 0.25 MCG PO DAILY Calcium Carbonate (Calcium Carbonate), 1 TAB PO QAM Cholecalciferol (D3-1000), 1,000 UNITS PO DAILY Citalopram Hydrobromide (Citalopram Hydrobromide), 30 MG PO DAILY Cyanocobalamin (B-12), 1,000 MCG PO QAM Dexlansoprazole (Dexilant), 60 MG PO QAM Gabapentin (Neurontin), 300 MG PO HS Gabapentin (Gabapentin), 200 MG PO QAM Insulin Aspart (Novolog Flexpen), 0 UNITS SC ACHS Ipratropium-Albuterol (Duoneb), 1 TREATMENT INH QID Levothyroxine Sodium (Levothyroxine Sodium), 100 MCG PO DAILY Linaclotide (Linzess), 290 MCG PO DAILY Melatonin (Melatonin), 10 MG PO HS Multiple Vitamins W/ Minerals (Multivitamin), 15 ML PO QAM Pantoprazole (Protonix), 1 TAB PO DAILY Polyethylene Glycol-Propylene (Systane Ultra), 1 DROPS OP QID Potassium Chloride (Klor-Con M20), 20 MEQ PO QAM Prednisone (Prednisone), 20 MG PO QAM Riboflavin (Riboflavin), 400 MG PO QAM Ropinirole Hydrochloride (Requip), 0.5 MG PO HS Sennosides-Docusate Sodium (Senokot S), 1 TAB PO BID Simvastatin (Zocor), 20 MG PO HS Sucralfate (Carafate), 10 ML PO QID [Boost Plus Vanilla], 0.5 CAN PO QID Scheduled PRN Acetaminophen (Tylenol Arthritis Ext Rel), 650 MG PO Q4 PRN for Pain Bisacodyl (Bisac-Evac), 10 MG NV DAILY PRN for Constipation Midodrine (Midodrine HCl), 2.5 MG PO TID@08,12,17 PRN for sbp <120 Polyethylene (Miralax), 17 GM PO DAILY PRN for Constipation Tramadol (Ultram), 1 TAB PO TID PRN for Pain Miscellaneous Medications Magnesium Hydroxide (Milk Of Magnesia), 30 ML PO Review of Systems Constitutional: No fever, No chills ENT: No sore throat Respiratory: No cough, No sputum, No shortness of breath Cardiovascular: + chest pain, No palpitations Abdomen: No pain, No nausea, No vomiting Genitourinary - Female: No dysuria Neurologic: No weakness Endocrine: No fatigue Hematologic / Lymphatic: No abnormal bleeding/bruising Integumentary: No rash Physical Exam Vital Signs Date Time Temp Pulse Resp B/P (MAP) Pulse Ox O2 Delivery O2 Flow Rate FiO2 04/24/18 19:34 79 24 96 Trach Collar 28 04/24/18 18:52 36.8 77 23 158/91 (113) 97 Trach Collar 04/24/18 16:00 98 Trach Collar 5.0 28 04/24/18 15:32 74 24 96 Trach Collar 28 04/24/18 15:18 36.8 80 19 149/74 (99) 98 Trach Collar 4.5 04/24/18 14:48 97 Trach Collar 5.0 28 04/24/18 14:36 78 24 124/57 96 Humidified Oxygen 04/24/18 13:08 89 04/24/18 12:33 131/68 04/24/18 12:18 84 20 95 04/24/18 11:48 87 24 96 04/24/18 11:40 85 26 92 Trach Collar 28 04/24/18 11:20 92 Humidified Oxygen 6.0 25 Trach Collar 04/24/18 11:18 83 25 92 04/24/18 11:09 122/76 04/24/18 11:07 91 Humidified Oxygen 6.0 28 Trach Collar 04/24/18 11:07 37.6 87 20 122/76 92 Humidified Oxygen 6.0 28 04/24/18 11:01 91 04/24/18 10:54 122/76 General: patient resting comfortably in bed, NAD Skin: warm, dry, intact, scattered ecchymoses on UE/LE bilaterally HEENT: NC/AT, PERRL, EOMI, anicteric sclera, conjunctiva without injection, nares patent, moist mucus membranes, no oropharyngeal lesions, neck supple, trachea midline, no thyromegaly, no LAD, tracheostomy tube in place, no evidence of bleeding/infection Heart: +S1/S2, regula Lungs: diminished breath sounds throughout, equal air entry bilaterally, no rales/rhonchi/wheezes anteriorly Abdomen: soft, NT/ND, no masses/organomegaly/ascites Extremities: warm, well perfused, no clubbing/cyanosis or edema, 2+ palpable pulses in UE/LE bilaterally Neuro: grossly intact, patient follows commands, nonfocal Diagnostics Laboratory Results Results Past 24 Hours Test 04/24/18 11:14 04/24/18 11:34 04/24/18 13:05 04/24/18 16:16 Range/Units Creatine Kinase MB Ratio 0-3.0 White Blood Count 9.25 4.8-10.8 K/uL Red Blood Count 2.95 4.2-5.4 M/uL Hemoglobin 8.8 12.0-16.0 g/dL Hematocrit 28.2 37-47 % Mean Corpuscular Volume 95.6 80-100 fL Mean Corpuscular Hemoglobin 29.8 25-34 pg Mean Corpuscular Hemoglobin Concent 31.2 32-36 g/dl Platelet Count 185 130-400 K/uL Mean Platelet Volume 10.7 7.4-10.4 fL RDW Standard Deviation 57.1 36.4-46.3 fL RDW Coefficient of Variation 16.5 11.5-14.5 % Nucleated RBC Absolute Count (auto) 0.03 0-0 K/uL Neutrophils % (Manual) 86.1 % Lymphocytes % (Manual) 10.4 % Monocytes % (Manual) 0.9 % Eosinophils % (Manual) 0.9 % Metamyelocytes % 1.7 % Nucleated Red Blood Cells % 0.3 % Neutrophils # (Manual) 7.96 1.4-6.5 K/uL Total Absolute Neutrophils 7.96 1.4-6.5 K/uL Lymphocytes # (Manual) 0.96 1.2-3.4 K/uL Total Absolute Lymphocytes 0.96 1.2-3.4 K/uL Monocytes # (Manual) 0.08 0.11-0.59 K/uL Eosinophils # (Manual) 0.08 0-0.5 K/uL Metamyelocytes # 0.16 0-0 K/uL Red Blood Cell Morphology Unremarkable Prothrombin Time 10.3 9.0-12.0 SECONDS Prothromb Time International Ratio 1.0 0.9-1.1 Activated Partial Thromboplast Time 26.9 21.0-31.0 SECONDS Partial Thromboplastin Ratio 1.0 Venous Blood pH 7.44 7.36-7.41 Venous Blood Partial Pressure CO2 45 38.0-50.0 mmHg Venous Blood Partial Pressure O2 34 mmHg Venous Blood HCO3 30 mmol/L Venous Blood Oxygen Saturation 63.6 % Venous Blood Base Excess 4.8 mEq/L Sodium Level 141 136-145 mmol/L Potassium Level 3.7 3.5-5.1 mmol/L Chloride Level 104 98-107 mmol/L Carbon Dioxide Level 28 21-32 mmol/L Anion Gap 8.0 3-11 mmol/L Blood Urea Nitrogen 24 7-18 mg/dl Creatinine 1.45 0.60-1.20 mg/dl Estimated GFR () 39.0 Estimated GFR (Non- 33.7 BUN/Creatinine Ratio 16.6 10-20 Random Glucose 144 70-99 mg/dl Lactic Acid Level 1.3 0.4-2.0 mmol/L Calcium Level 7.7 8.5-10.1 mg/dl Phosphorus Level 2.2 2.5-4.9 mg/dl Magnesium Level 1.7 1.8-2.4 mg/dl Total Bilirubin 0.6 0.2-1 mg/dl Aspartate Amino Transf (AST/SGOT) 18 15-37 U/L Alanine Aminotransferase (ALT/SGPT) 30 12-78 U/L Alkaline Phosphatase 90 45-117 U/L Creatine Kinase MB < 1.0 0.5-3.6 ng/ml Troponin I < 0.015 0-0.045 ng/ml Pro-B-Type Natriuretic Peptide 566 0-1800 pg/ml Total Protein 5.5 6.4-8.2 gm/dl Albumin 2.5 3.4-5.0 gm/dl Globulin 3.0 2.5-4.0 gm/dl Albumin/Globulin Ratio 0.8 0.9-2 Urine Color YELLOW Urine Appearance CLOUDY CLEAR Urine pH 5.0 4.5-7.5 Urine Specific [place] 1.020 1.000-1.030 Urine Protein 2+ NEG Urine Glucose (UA) NEG NEG Urine Ketones TRACE NEG Urine Occult Blood 2+ NEG Urine Nitrite NEG NEG Urine Bilirubin NEG NEG Urine Urobilinogen NEG NEG Urine Leukocyte Esterase LARGE NEG Urine WBC (Auto) >30 0-5 /hpf Urine RBC (Auto) 5-10 0-4 /hpf Urine Hyaline Casts (Auto) 1-5 0-5 /lpf Urine Epithelial Cells (Auto) >30 0-5 /lpf Urine Bacteria (Auto) NEG NEG Urine Pathogenic Casts 0 /lpf Urine Yeast (Auto) NONE PRSENT Bedside Glucose 132 70-90 mg/dl Microbiology Results 04/24/18 Blood Culture, Received Pending 04/24/18 Gram Stain, Received Pending 04/24/18 Sputum Culture, Received Pending 04/24/18 Urine Culture, Received Pending Diagnostic Radiology CHEST ONE VIEW PORTABLE CLINICAL HISTORY: Respiratory distress. Dyspnea. COMPARISON STUDY: Chest CT March 24, 2018 and chest radiograph April 05, 2018. FINDINGS: Note is made of a right PICC, bilateral shoulder arthroplasties, tracheostomy tube as well as multilevel fusions within the spine. Subcutaneous gas shown on exam of April 05, 2018 is no longer visualized. Linear left lung opacity favors atelectasis. Patient is rotated. Right basilar opacity is noted. A small right pleural effusion is noted. There is no pneumothorax. Cardiomediastinal silhouette is stable. Pulmonary vascularity is normal. Several subacute to chronic right rib fractures are noted IMPRESSION: 1. Right basilar opacity which may reflect atelectasis or pneumonia. Small right pleural effusion. 2. No pneumothorax. EKG NSR, no evidence of ischemia Impression Assessment and Plan 83yo female with multiple medical problems, recently admitted 03/15 - 04/17 for MRSA PNA, MANJULA secondary to Vancomycin toxicity, s/p tracheostomy on 6L trach collar with possible aspiration event today, worsening respiratory status. 1. Aspiration event - patient presently doing well. No cough, no increase in secretions, no increase in O2 requirement. CXR with possible RLL infiltrate noted. Patient afebrile, hemodynamically stable, no leukocytosis. Respiratory distress noted at [facility], daughter states that her mother doesn't seem herself -Admit to medical floor, continuous pulse oximetry -Obtain sputum culture from tracheal suction -Suction q 6 hours and PRN -Supplemental O2 via trach collar - 6L -Vancomycin and Zosyn for empiric coverage given history of recent hospitalization and MRSA PNA, deescalate if patient status stable and cultures negative -DuoNeb PRN 2. Atrial fibrillation - converted to NSR during last hospital stay. Presently in NSR. -Continue amiodarone 200 mg once daily along w/ eliquis renally dose to 2.5 mg p.o. twice daily. -Follow-up with cardiology after discharge as planned 3. Chronic hypoxic respiratory failure - s/p trach placement. -Remain on trach collar 6L, humidified O2 -Suction q 6 hours and PRN -Needs follow-up with pulmonology as planned 4. Dysphagia - discussed placement of PEG tube at last admission which patient refused. Aspiration risk -Speech evaluation -Thickened liquids and mechanical soft diet 5. COPD - weaning prednisone is not recommended given the risk that she may become hypotensive from adrenal insufficiency. She has been on steroids for a long time-needs to be slowly weaned over the next year with pulmonary as an outpatient-was tapered down to 20 mg daily at this point we will leave there for a while -Continue Prednisone 20mg po daily -Continue Advair -Continue DuoNeb PRN 6. H/O DVTs - noted; continues on Eliquis. 7. Acute on CKD stage 3 Cr near baseline -Continue to monitor BUN/Cr/electrolytes and UOP -Renal dosing where appropriate -Avoid nephrotoxic agents 8. Hypothyroidism - stabel, chronic -COntinue synthroid. 9. Diabetes - well controlled -Lantus 6u BID with ISS -Continue to monitor 10. Chronic diastolic CHF - compensated. In fact she has lost weight in the hospital. 11. Depression - stable, chronic -Continue Celexa 30mg po daily 12. Anemia - continue to monitor, no active bleeding 13. History of orthostatic hypotension- -Continue Midodrine PRN 14. Chronic lower back pain -Continue gabapentin 300 mg in the evening and 200 mg in the morning 15. Restless leg syndrome -Stable, continue Requip RLS - requip., Gabapentin 16. Hypocalcemia -Continue Vitamin D, calcitriol 17. GERD- stable, chronic -continue Carafate, Protonix 18. F/E/N - NSS at 75mL/hr x 1 liter, monitor electrolytes and replete as needed, advance diet as tolerated, mechanical soft with thickened liquids as tolerated with aspiration precautions. 19. Ppx - Eliquis, Protonix, Carafate 20. Code - Full 21. Dispo - admit to medical floor Advanced Directives Existing Living Will: Yes Existing Power of Senior Communications Engineer: Yes Resuscitation Status full VTE Prophylaxis Will order VTE Prophylaxis: Yes
[2018-04-24] MEDS ORDERED: ALBUTEROL HFA 8 GM INHALER INH SCH (22:00)
[2018-04-25] VITALS (21 sets, daily range): BP systolic 75–187; BP diastolic 26–112; PULSE 65–81; TEMP 36.4–37.4; O2SAT 91–100
[2018-04-25] MEDS: PIPERACILL/TAZOBAC IV 3.375 GM in D5W 100ML IV SCH (05:03)
[2018-04-25] MEDS: LEVOTHYROXINE 100 MCG TAB PO SCH (05:09)
[2018-04-25 06:05] LABS: BASO % 0.7 %; BASO ABS # 0.03 K/uL (0-0.2); EOS % 1.2 %; EOS ABS # 0.05 K/uL (0-0.5); HEMATOCRIT 25.7 % (37-47); HEMOGLOBIN 7.9 g/dL (12.0-16.0); IG# 0.13 K/uL (0.00-0.02); LYMPH % 21.1 %; MEAN CELL VOLUME 96.3 fL (80-100); MEAN CORPUSCULAR HEMOGLOBIN 29.6 pg (25-34); MEAN CORPUSCULAR HGB CONC 30.7 g/dl (32-36); MEAN PLATELET VOLUME 10.1 fL (7.4-10.4); MONO % 9.2 %; MONO ABS # 0.39 K/uL (0.11-0.59); NEUT % 64.7 %; NEUT ABS # 2.76 K/uL (1.4-6.5); PLATELET COUNT 165 K/uL (130-400); RED CELL DISTRIBUTION WIDTH CV 16.7 % (11.5-14.5); RED CELL DISTRIBUTION WIDTH SD 58.8 fL (36.4-46.3); WHITE BLOOD COUNT 4.26 K/uL (4.8-10.8)
[2018-04-25 06:44] LABS: CREATININE 1.31 mg/dl (0.60-1.20); POTASSIUM 3.2 mmol/L (3.5-5.1)
[2018-04-25] MEDS: ALBUT/IPRATROP 3MG/0.5MG NEB 3 ML VIAL INH SCH ×4 (07:09→19:44)
[2018-04-25] MEDS ORDERED: VANCOMYCIN IV 1,250 MG in SODIUM CHLORIDE 0.9% 250ML 250 ML IV SCH (07:15)
[2018-04-25] MEDS ORDERED: POTASSIUM CHLORIDE 20 MEQ TABCR PO STA (08:09)
[2018-04-25] MEDS: APIXABAN 2.5 MG TAB PO SCH ×2 (08:35→20:30)
[2018-04-25] MEDS: GABAPENTIN 100 MG CAP PO SCH (08:36)
[2018-04-25] MEDS: ATORVASTATIN 10 MG TAB PO SCH (08:36)
[2018-04-25] MEDS: CHOLECALCIFEROL 1000 INTER.UNIT TAB PO SCH (08:36)
[2018-04-25] MEDS: AMIODARONE 200 MG TAB PO SCH (08:37)
[2018-04-25] MEDS: CITALOPRAM 20 MG TAB PO SCH (08:37)
[2018-04-25] MEDS: INSULIN ASPART 100 UNITS/ML 3 ML PEN SC SCH ×4 (08:40→20:31)
[2018-04-25] MEDS: INSULIN GLARGINE SOLOSTAR 100 UNITS/ML 3 ML PEN SQ SCH ×2 (08:53→20:38)
[2018-04-25] MEDS: CALCITRIOL 0.25 MCG CAP PO SCH (08:55)
[2018-04-25] MEDS: SUCRALFATE 1 GM/10 ML UDC PO SCH ×4 (08:55→20:29)
[2018-04-25] MEDS: MULTIVITAMINS W/MINERALS 15ML UDP PO SCH (08:55)
[2018-04-25] MEDS: PANTOprazole SOD 40 MG TAB PO SCH (08:55)
[2018-04-25] MEDS: DOCUSATE SODIUM/SENNA 50/8.6MG TAB PO SCH ×2 (08:56→20:31)
[2018-04-25] MEDS: MAGNESIUM OXIDE 400 MG TAB PO SCH ×2 (09:00→20:30)
[2018-04-25] MEDS ORDERED: NON-FORMULARY MEDICATION (Dexlansoprazole (Dexilant) 60 MG) PO SCH (09:00)
--- NOTE | 2018-04-25 09:33 | Clinical Documentation Query ---
CLINICAL DOCUMENTATION QUERY 83 y/o female with with cough and SOB after an aspiration even. In your clinical opinion is this patient being managed for: ( x ) Possible aspiration pneumonia treated with IV antibiotics, aspiration precautions, speech therapy consult, and trach care. ( ) Not Agree ( ) Other explanation of clinical findings (No explanation is considered a No Response) ( ) Unable to determine ( ) Need to Discuss (Phone CDS or qliq) (No discussion is considered a No Response) The medical record reflects the following clinical findings, treatment, and risk factors. Clinical Indicators: Aspiration event per H&P, CXR showing right basilar opacity , low grade fever 37.6, and hypoxia of 91% on O2. Treatment: IV Vancomycin, IV Zosyn, speech therapy consult, aspiration precautions, trach care, Risk Factors: Age, dysphagia, tracheostomy status, aspiration event, Please clarify and document your clinical opinion in the progress notes and discharge summary. Terms such as "probable", "suspected", "likely", "questionable", "possible", or "still to be ruled out" are acceptable. IF IN AGREEMENT, YOU MUST DOCUMENT ABOVE DIAGNOSTIC STATEMENT IN DAILY PROGRESS NOTES AND DISCHARGE SUMMARY. This document is not part of the patient's record. Thank You, Wojciech Cid, VIVEK [phone] & via qlicCHONORHEALTH DEER [facility] MED[facility] CENT[facility]CT
[2018-04-25] MEDS ORDERED: POTASSIUM CHLR 20 MEQ / WTR 100 MEQ IV ONE (09:45)
[2018-04-25] MEDS ORDERED: POTASSIUM CHLR 20MEQ / WTR IV ONE (10:00)
--- NOTE | 2018-04-25 12:05 | Pharmacy Progress Note ---
Pharmacy Abx Dose Short Note Date of Service Apr 25, 2018. Assessment & Plan Assessment * 83 year old female receiving VANCOMYCIN + ZOSYN for treatment of possible aspiration pneumonia with risk factors for resistant organisms * Patient does have a h/o MRSA growth in sputum as well as recurrent pna's * Patient was on trach collar overnight. * Trach collar sputum cx is growing GNR (preliminary) * Urine cx (cath specimen) is growing Proteus sp * Day # 2 of antimicrobial therapy * CXR: R basilar opacity, atelectasis vs pna * No procalcitonin level available * Renal fxn stable over last 24 hours, marginally improved. SCr still elevated above baseline (0.8-0.9, buth has not recovered fully since recent ATN) Plan Vancomycin * 1000mg + 750mg IV given yesterday for a total load of 1750mg (~20mg/kg) * Random level this AM = 15.2 - indicating need for redosing * Goal trough: 15 - 20mcg/mL for pulmonary infxn * Plan is to give 1250mg IV x 1 today (~13.6mg/kg) and repeat random level w/ AM labs tomorrow * Estimated half-life ~21 hours; of note, pt does have a prior h/o ATN possibly secondary to vancomycin induced nephrotoxicity Zosyn * change to 4.5gm ext-infusion IV Q 8 hours for eCrCl > 20cc/min and BMI > 35 Pharmacy will continue to follow and will adjust dose/frequency as necessary. Thank you.
[2018-04-25] MEDS: METHYLPREDNISOLONE IV 40 MG in SYRINGE 0 ML IV SCH (14:04)
[2018-04-25] MEDS: PIPERACILL/TAZOBAC IV 4.5 GM in DEXTROSE 5% 100ML 100 ML IV SCH ×2 (14:04→22:00)
--- NOTE | 2018-04-25 17:56 | Progress Note ---
Subjective Date of Service: Apr 25, 2018. Subjective Pt evaluation today including: conversation w/ family (daughter Delores at bedside), physical exam, chart review, lab review, review of studies (cxr, etc) , conversation w/ regulatory consultant (speech therapy), review of inpatient medication list Pain: left arm PO Intake: npo; aspirated pudding this am Voiding: christian catheter in place (this was exchanged yesterday in the ER) tele stable overnight patient was sleepy during the visit would open eyes briefly to her name being called, then quickly fall asleep when asked questions she was visibly confused Delores reports her mother was doing well last Monday but then declined since staff report that this am, during medication administration, there was pudding coming from her tracheostomy Delores reports her left arm has been swollen for weeks and that it is intermittently painful Problem List Medical Problems: (1) Aspiration pneumonia Status: Acute (2) Cervical strain Status: Acute (3) Contusion of multiple sites Status: Acute (4) COPD exacerbation Status: Acute (5) Fall Status: Acute (6) Fall from chair, initial encounter Status: Acute (7) Fatigue Status: Acute (8) Head injury Status: Acute (9) Head injury Status: Acute (10) Hip pain Status: Acute (11) Hypocalcemia Status: Acute (12) Hypoxia Status: Acute (13) Hypoxia Status: Acute (14) Lower extremity edema Status: Acute (15) PNA (pneumonia) Status: Acute (16) Pneumonia Status: Acute (17) Pneumonitis Status: Acute (18) Reactive airway disease Status: Acute (19) Right flank pain Status: Acute (20) Sepsis Status: Acute (21) Sepsis Status: Acute (22) Syncope Status: Acute (23) Traumatic compression fracture of third thoracic vertebra Status: Acute (24) Vaginal yeast infection Status: Acute (25) Weakness Status: Acute (26) Yeast vaginitis Status: Acute Review of Systems unable to obtain ROS due to altered MS Objective Vital Signs Date Time Temp Pulse Resp B/P (MAP) Pulse Ox O2 Delivery O2 Flow Rate FiO2 04/25/18 16:24 36.8 77 30 88/26 91 6.0 04/25/18 15:36 74 20 96 Trach Collar 28 04/25/18 15:24 71 29 109/78 96 04/25/18 15:24 32 109/78 (88) 95 Trach Collar 6.0 8/8/18 14:54 36.8 69 25 134/112 95 6.0 04/25/18 14:33 36.7 70 23 114/100 94 04/25/18 14:08 93/73 (80) 04/25/18 12:41 Trach Collar 6.0 04/25/18 11:36 36.8 70 19 75/31 (46) 96 Nasal Cannula 152/101 (118) 04/25/18 11:11 66 18 96 Trach Collar 28 04/25/18 08:00 Trach Collar 6.0 04/25/18 07:09 65 18 97 Trach Collar 28 04/25/18 06:54 36.7 72 16 128/62 (84) 96 Trach Collar 04/25/18 03:06 36.6 68 19 153/84 (107) 96 Trach Collar 04/24/18 23:34 Trach Collar 5.0 28 04/24/18 23:21 36.8 71 20 167/89 (115) 95 Trach Collar 04/24/18 19:34 79 24 96 Trach Collar 28 04/24/18 18:52 36.8 77 23 158/91 (113) 97 Trach Collar Physical Exam General Appearance: no apparent distress, + obese, + pertinent finding (altered , eyes closed, intermittently follows commands) ENT: + pertinent finding (MM dry; trach in place) Neck: no JVD, + pertinent finding (trach - secretions noted at the OS) Respiratory/Chest: no respiratory distress, no accessory muscle use, + crackles (right base), + rhonchi (occasional ), + wheezing (extensive b/l ) Cardiovascular: regular rate, rhythm, no gallop, no murmur Abdomen: normal bowel sounds, non tender, soft, no organomegaly Extremities: no pedal edema, + swelling (left arm - extensive, extending from shoulder down to the wrist; no obvious deformity ) Neurologic/Psychiatric: + pertinent finding (lethargic, altered) Skin: + pallor, + pertinent finding (PICC line, RUE - clean ) Laboratory Results Last 24 Hours Test 04/24/18 20:35 04/25/18 05:43 04/25/18 07:19 04/25/18 11:25 Bedside Glucose 90 mg/dl 77 mg/dl 66 mg/dl White Blood Count 4.26 K/uL Red Blood Count 2.67 M/uL Hemoglobin 7.9 g/dL Hematocrit 25.7 % Mean Corpuscular Volume 96.3 fL Mean Corpuscular Hemoglobin 29.6 pg Mean Corpuscular Hemoglobin Concent 30.7 g/dl Platelet Count 165 K/uL Mean Platelet Volume 10.1 fL Neutrophils (%) (Auto) 64.7 % Lymphocytes (%) (Auto) 21.1 % Monocytes (%) (Auto) 9.2 % Eosinophils (%) (Auto) 1.2 % Basophils (%) (Auto) 0.7 % Neutrophils # (Auto) 2.76 K/uL Lymphocytes # (Auto) 0.90 K/uL Monocytes # (Auto) 0.39 K/uL Eosinophils # (Auto) 0.05 K/uL Basophils # (Auto) 0.03 K/uL RDW Standard Deviation 58.8 fL RDW Coefficient of Variation 16.7 % Immature Granulocyte % (Auto) 3.1 % Immature Granulocyte # (Auto) 0.13 K/uL Hypochromasia PRESENT Sodium Level 144 mmol/L Potassium Level 3.2 mmol/L Chloride Level 110 mmol/L Carbon Dioxide Level 28 mmol/L Anion Gap 6.0 mmol/L Blood Urea Nitrogen 20 mg/dl Creatinine 1.31 mg/dl Est Creatinine Clear Calc Drug Dose 35.4 ml/min Estimated GFR () 44.1 Estimated GFR (Non- 38.1 BUN/Creatinine Ratio 15.0 Random Glucose 78 mg/dl Calcium Level 7.0 mg/dl Random Vancomycin Level 15.2 mcg/ml Test 04/25/18 11:27 Bedside Glucose 74 mg/dl Assessment and Plan 83yo female: 1. acute/chronic hypoxic respiratory failure - presumably due to new aspiration pneumonia. Culprit pathogen is a gram negative joe as culture is growing such. She also appears to have COPD exacerbation. Keep NPO due to recurrent aspiration. Continue zosyn. She had a significant acute kidney injury from vancomycin during the previous stay and will defer on MRSA coverage for now given the trach culture results. Cont pulmonary toilet and suctioning along with nebs. Start solumedrol 40mg q12h. Hold prednisone. 2. sepsis 2nd to RLL pneumonia (and UTI) - probably aspiration pneumonia given the events of last few days at [facility]. Trach culture growing gram negative joe - follow culture, continue zosyn. 3. paroxysmal a. fib - diagnosed during previous hospital stay - remains in NSR. Cont amiodarone. Cont eliquis. 4. dysphagia with aspiration - speech following. During previous hospitalization patient adamantly refused PEG placement. Video swallow scheduled for tomorrow. This is a very difficult situation for Ms. Philip as the aspiration will likely continue in the future. 5. acute/chronic anemia - Tx 2 units PRBCs. Fecal occult her stool. CBC am. Hold on lasix for now as she looks volume depleted. 6. UTI - zosyn should suffice; christian exchanged yesterday; follow culture. 7. LUE swelling - would be unusual for her to develop DVT while on eliquis but will check doppler to be complete. 8. protein calorie malnutrition, moderate - ongoing issue due to NPO status, etc. Address once video swallow is completed tomorrow. 9. COPD with exacerbation - hold prednisone, place on solumedrol 40mg q12h. nebs, o2, etc. 10. h/o DVTs in the past - eliquis. 11. CKD stage 3 - creatinine stable. BMP am. 12. Hypothyroidism - compensated with most recent TSH wnl; cont synthroid; change to IV tomorrow if she remains NPO. 13. T2DM - controlled and in fact sugars are borderline low due to stress from infection. Steroids should help prevent hypoglycemia. 14. chronic diastolic CHF - compensated; in fact looks volume depleted. 15. right-sided elevated Hemidiaphragm - S/P Plication in the past. 16. depression - celexa. 17. HTN - BPs are low or low-normal; hold home meds. 18. RLS - requip if able to take PO. 19. hypokalemia - replace with IV KCL, repeat BMP am. Delores extensively updated at bedside today will ultimately need PT, OT Continued [facility] stay due to: abnormal vital signs, inadequate po fluid intake, voiding difficulties, ambulation difficulties, multiple IV medications needed Discharge planning: uncertain
--- NOTE | 2018-04-25 18:13 | DIAGNOSTIC IMAGING REPORT ---
L VENOUS DOPPLER UPR EXT UNIL HISTORY: Pain. Edema. severe edema, LUE; eval for DVT COMPARISON STUDY: None. FINDINGS: The internal jugular vein is patent. There is normal flow within the subclavian vein. There is normal flow and compressibility within the left axillary, basilic, brachial, radial, ulnar, and visualized cephalic veins. IMPRESSION: No DVT within the upper extremity. The above report was generated using voice recognition software. It may contain grammatical, syntax or spelling errors. Electronically signed by: Vignesh Kim M.D. 04/25/2018 6:12 PM Dictated Date/Time: 04/25/2018 6:11 PM
[2018-04-25] MEDS: GABAPENTIN 300 MG CAP PO SCH (20:30)
[2018-04-25] MEDS: ROPINIROLE HCL 0.25 MG TAB PO SCH (20:31)
[2018-04-25] MEDS: TRAMADOL HCL 50 MG TAB PO PRN (23:54)
[2018-04-26] VITALS (12 sets, daily range): BP systolic 90–154; BP diastolic 44–103; PULSE 60–82; TEMP 36.5–37.3; O2SAT 96–100; BMI 34.9
[2018-04-26] MEDS: METHYLPREDNISOLONE IV 40 MG in SYRINGE 0 ML IV SCH ×2 (02:00→13:28)
[2018-04-26] MEDS: PIPERACILL/TAZOBAC IV 4.5 GM in DEXTROSE 5% 100ML 100 ML IV SCH ×3 (05:42→22:12)
[2018-04-26] MEDS: LEVOTHYROXINE 100 MCG TAB PO SCH (06:00)
[2018-04-26 06:42] LABS: CALCIUM 7.1 mg/dl (8.5-10.1); CREATININE 1.3 mg/dl (0.60-1.20); PHOSPHORUS 3.8 mg/dl (2.5-4.9); POTASSIUM 3.8 mmol/L (3.5-5.1)
[2018-04-26] MEDS: ALBUT/IPRATROP 3MG/0.5MG NEB 3 ML VIAL INH SCH ×4 (06:53→19:18)
[2018-04-26 06:55] LABS: HEMATOCRIT 34.6 % (37-47); HEMOGLOBIN 11.5 g/dL (12.0-16.0); MEAN CELL VOLUME 90.8 fL (80-100); MEAN CORPUSCULAR HEMOGLOBIN 30.2 pg (25-34); MEAN CORPUSCULAR HGB CONC 33.2 g/dl (32-36); MEAN PLATELET VOLUME 10.8 fL (7.4-10.4); PLATELET COUNT 193 K/uL (130-400); RED CELL DISTRIBUTION WIDTH SD 55.7 fL (36.4-46.3); WHITE BLOOD COUNT 5.46 K/uL (4.8-10.8)
[2018-04-26] MEDS: PANTOprazole SOD 40 MG TAB PO SCH (08:43)
[2018-04-26] MEDS: MULTIVITAMINS W/MINERALS 15ML UDP PO SCH (08:43)
[2018-04-26] MEDS: SUCRALFATE 1 GM/10 ML UDC PO SCH ×4 (08:43→20:22)
[2018-04-26] MEDS: DOCUSATE SODIUM/SENNA 50/8.6MG TAB PO SCH ×2 (08:43→20:25)
[2018-04-26] MEDS: CITALOPRAM 20 MG TAB PO SCH (08:44)
[2018-04-26] MEDS: ATORVASTATIN 10 MG TAB PO SCH (08:44)
[2018-04-26] MEDS: AMIODARONE 200 MG TAB PO SCH (08:44)
[2018-04-26] MEDS: CALCITRIOL 0.25 MCG CAP PO SCH (08:45)
[2018-04-26] MEDS: GABAPENTIN 100 MG CAP PO SCH (08:45)
[2018-04-26] MEDS: CHOLECALCIFEROL 1000 INTER.UNIT TAB PO SCH (08:45)
[2018-04-26] MEDS: MAGNESIUM OXIDE 400 MG TAB PO SCH ×2 (08:45→20:23)
[2018-04-26] MEDS: APIXABAN 2.5 MG TAB PO SCH ×2 (08:45→20:24)
[2018-04-26] MEDS: TRAMADOL HCL 50 MG TAB PO PRN (09:20)
[2018-04-26] MEDS: INSULIN ASPART 100 UNITS/ML 3 ML PEN SC SCH ×3 (09:38→16:58)
--- NOTE | 2018-04-26 12:24 | DIAGNOSTIC IMAGING REPORT ---
CHEST ONE VIEW PORTABLE HISTORY: Respiratory failure. Tracheostomy. COMPARISON: Chest 04/24/2018. FINDINGS: Rotated study. Tracheostomy tube appears in position. Cervical spinal fusion hardware and thoracolumbar spinal fusion hardware is again noted. Bilateral total shoulder arthroplasties. A right PICC terminates in the SVC. No pneumothorax. Small right pleural effusion persists. Bibasilar linear densities and low lung volumes are again noted. The heart remains mildly enlarged. No evidence for pulmonary edema. Epigastric surgical clips. IMPRESSION: 1. No significant change compared to the prior study. 2. Small right pleural effusion and bibasilar linear densities persist. This favors atelectasis given the low lung volumes. A pneumonia could also have a similar appearance. 3. Satisfactory support line placement. Electronically signed by: Jeff Maldonado M.D. 04/26/2018 12:23 PM Dictated Date/Time: 04/26/2018 12:21 PM
--- NOTE | 2018-04-26 12:27 | DIAGNOSTIC IMAGING REPORT ---
KUB CLINICAL HISTORY: 83 years-old Female presenting with right sided abd pain, constipation?. TECHNIQUE: Single supine view of the abdomen was obtained. COMPARISON: 04/15/2018. FINDINGS: Image quality is significantly limited due to blurring. This limits diagnostic sensitivity. Surgical clips project over the right upper quadrant. Radiolucency over the left abdomen is indeterminate and may be artifactual or represent gaseous distention of colon. Otherwise nonobstructive bowel gas pattern. Image quality.] Adequate evaluation for pneumoperitoneum. Extensive thoracolumbar fusion hardware. IMPRESSION: 1. Significantly limited image quality. Radiolucency in the left abdomen is indeterminate. Consider repeat nonportable radiograph depending on the level of clinical concern. Electronically signed by: Jorge Villafana M.D. 04/26/2018 12:26 PM Dictated Date/Time: 04/26/2018 12:23 PM
--- NOTE | 2018-04-26 15:47 | DIAGNOSTIC IMAGING REPORT ---
VIDEO SWALLOW HISTORY: Dysphagia determine if oral intake is safe; please schedule per order TECHNIQUE: Video fluoroscopic evaluation of swallowing was performed in the AP and lateral projections by the speech pathology staff. The patient is fed nectar-thick and thin liquid barium, a barium coated wafer, and barium pudding. FLUOROSCOPY TIME: 3.1 minutes. COMPARISON STUDY: None. FINDINGS: There is normal hyoid excursion and epiglottic deflection. Trace aspiration. No significant cough reflex. No significant aspiration with thicker liquids. Moderate esophageal dysmotility. IMPRESSION: 1. 1. Trace silent aspiration with thin liquids. 2. No significant cough reflex. 2. Please see the speech pathologist report for detailed findings and recommendations. The above report was generated using voice recognition software. It may contain grammatical, syntax or spelling errors. Electronically signed by: Vignesh Kim M.D. 04/26/2018 3:46 PM Dictated Date/Time: 04/26/2018 3:45 PM
[2018-04-26] MEDS: ROPINIROLE HCL 0.25 MG TAB PO SCH (20:23)
[2018-04-26] MEDS: GABAPENTIN 300 MG CAP PO SCH (20:24)
[2018-04-26] MEDS ORDERED: NURSING DECISION MEDICATION ORDER SCH (20:30)
[2018-04-27] VITALS (13 sets, daily range): BP systolic 104–146; BP diastolic 59–116; PULSE 66–86; TEMP 36.6–36.9; O2SAT 96–100; Ht 157.5 cm; Wt 79.7 kg
--- NOTE | 2018-04-27 01:46 | Progress Note ---
Subjective Date of Service: Apr 26, 2018. Subjective Pt evaluation today including: conversation w/ patient, conversation w/ family (Delores - daughter), physical exam, chart review, lab review, review of studies ( cxr, KUB xray), conversation w/ strategic solutions consultant (speech), review of inpatient medication list Pain: right side of abdomen PO Intake: npo Voiding: christian catheter in place tele stable overnight w/o dysrhythmia patient had passy elisa valve in place today she spoke to me w/o difficulty knew she was in hospital and that it was 2018 reported she "felt terrible" all over also c/o abdominal discomfort denied dyspnea staff report intermittent compliance with meds and suctioning when asked what she wants to do with her care she stated twice - "just let it go " when asked to clarify she stated she wanted "to stop" Problem List Medical Problems: (1) Aspiration pneumonia Status: Acute (2) Cervical strain Status: Acute (3) Contusion of multiple sites Status: Acute (4) COPD exacerbation Status: Acute (5) Fall Status: Acute (6) Fall from chair, initial encounter Status: Acute (7) Fatigue Status: Acute (8) Head injury Status: Acute (9) Head injury Status: Acute (10) Hip pain Status: Acute (11) Hypocalcemia Status: Acute (12) Hypoxia Status: Acute (13) Hypoxia Status: Acute (14) Lower extremity edema Status: Acute (15) PNA (pneumonia) Status: Acute (16) Pneumonia Status: Acute (17) Pneumonitis Status: Acute (18) Reactive airway disease Status: Acute (19) Right flank pain Status: Acute (20) Sepsis Status: Acute (21) Sepsis Status: Acute (22) Syncope Status: Acute (23) Traumatic compression fracture of third thoracic vertebra Status: Acute (24) Vaginal yeast infection Status: Acute (25) Weakness Status: Acute (26) Yeast vaginitis Status: Acute Review of Systems Respiratory: No dyspnea at rest, No hemoptysis Cardiac: No chest pain Abdomen: + pain Objective Vital Signs Date Time Temp Pulse Resp B/P (MAP) Pulse Ox O2 Delivery O2 Flow Rate FiO2 04/26/18 07:02 36.5 78 24 90/74 (79) 100 Trach Collar 6.0 04/26/18 06:53 73 18 99 Trach Collar 28 04/26/18 03:38 36.6 60 17 110/69 (83) 99 Trach Collar 04/26/18 01:00 133/79 (97) 04/26/18 00:00 100 Trach Collar 6.0 28 04/25/18 23:13 36.4 72 17 140/110 (120) 99 Trach Collar 04/25/18 22:00 36.8 80 27 187/83 99 6.0 04/25/18 21:13 36.9 81 33 167/88 100 6.0 04/25/18 20:13 36.8 75 24 176/79 98 6.0 04/25/18 20:00 100 Trach Collar 6.0 04/25/18 19:45 78 18 98 Trach Collar 6.0 28 04/25/18 19:16 36.6 80 22 184/89 (120) 100 Trach Collar 6.0 04/25/18 19:13 36.6 78 29 184/89 99 6.0 04/25/18 18:58 37.4 77 24 187/90 99 6.0 04/25/18 16:24 36.8 77 30 88/26 91 6.0 04/25/18 16:00 91 Trach Collar 6.0 04/25/18 15:36 74 20 96 Trach Collar 28 04/25/18 15:24 71 29 109/78 96 04/25/18 15:24 32 109/78 (88) 95 Trach Collar 6.0 04/25/18 14:54 36.8 69 25 134/112 95 6.0 04/25/18 14:33 36.7 70 23 114/100 94 04/25/18 14:08 93/73 (80) 04/25/18 12:41 Trach Collar 6.0 04/25/18 11:36 36.8 70 19 75/31 (46) 96 Nasal Cannula 152/101 (118) 04/25/18 11:11 66 18 96 Trach Collar 28 Physical Exam General Appearance: no apparent distress, + obese, + pertinent finding (eyes closed, but opens them to command) ENT: + pertinent finding (MM slightly dry; no thrush) Neck: + pertinent finding (no JVD; trach clean) Respiratory/Chest: no respiratory distress, no accessory muscle use, + decreased breath sounds (right base), + wheezing (minimal today) Cardiovascular: regular rate, rhythm, no gallop, no murmur Abdomen: normal bowel sounds, soft, no organomegaly, + tenderness (right flank and mildly right upper quadrant) Extremities: no pedal edema Neurologic/Psychiatric: alert, oriented x 3 Skin: no rash, + pertinent finding (PICC - RUE - clean; left arm with moderate edema - no change) Laboratory Results Last 24 Hours Test 04/25/18 11:25 04/25/18 11:27 04/25/18 16:16 04/25/18 16:20 Bedside Glucose 66 mg/dl 74 mg/dl 59 mg/dl 80 mg/dl Test 04/25/18 16:21 04/25/18 16:46 04/25/18 20:31 04/26/18 05:46 Bedside Glucose 69 mg/dl 91 mg/dl 117 mg/dl White Blood Count 5.46 K/uL Red Blood Count 3.81 M/uL Hemoglobin 11.5 g/dL Hematocrit 34.6 % Mean Corpuscular Volume 90.8 fL Mean Corpuscular Hemoglobin 30.2 pg Mean Corpuscular Hemoglobin Concent 33.2 g/dl RDW Standard Deviation 55.7 fL RDW Coefficient of Variation 17.0 % Platelet Count 193 K/uL Mean Platelet Volume 10.8 fL Sodium Level 141 mmol/L Potassium Level 3.8 mmol/L Chloride Level 108 mmol/L Carbon Dioxide Level 26 mmol/L Anion Gap 7.0 mmol/L Blood Urea Nitrogen 16 mg/dl Creatinine 1.30 mg/dl Est Creatinine Clear Calc Drug Dose 34.6 ml/min Estimated GFR () 44.6 Estimated GFR (Non- 38.4 BUN/Creatinine Ratio 12.2 Random Glucose 90 mg/dl Calcium Level 7.1 mg/dl Phosphorus Level 3.8 mg/dl Magnesium Level 1.8 mg/dl Test 04/26/18 07:24 Bedside Glucose 93 mg/dl Assessment and Plan 83yo female: 1. acute/chronic hypoxic respiratory failure - due to new aspiration pneumonia and COPD exacerbation. Culprit pathogen is pseudomonas. She also appears to have COPD exacerbation. Keep NPO due to recurrent aspiration and until goals of care can be clarified. Continue zosyn but suspect we can narrow this once final urine culture has resulted. Cont pulmonary toilet and suctioning along with nebs. Continue solumedrol 40mg q12h. No wean today. 2. sepsis 2nd to RLL pneumonia (and UTI) - improved. 3. paroxysmal a. fib - diagnosed during previous hospital stay - remains in NSR. Cont amiodarone. Cont eliquis. 4. dysphagia with aspiration - video swallow performed today; aspirates thins on the study. During previous hospitalization patient adamantly refused PEG placement. Although she has tolerated thickened liquids speech is concerned she is at high risk of aspirating such as well. Until we can clarify her goals of care will keep NPO for the rest of the day. 5. acute/chronic anemia - s/p 2 units PRBCs. Fecal occult her stool when able. H/H stable today. 6. UTI - 2nd to proteus and another GNR. Cont zosyn; narrow once final cx results are available. 7. LUE swelling - no DVT on doppler. Is this dependent edema from not being able to move that arm? Her daughter reports she had had an infiltrated IV in that arm but I would have expected much better resolution of the edema as the edema has been present for weeks. Would elevate as much as possible. Follow carefully. 8. protein calorie malnutrition, moderate - ongoing issue due to NPO status, etc. 9. COPD with exacerbation - hold prednisone, cont solumedrol 40mg q12h. nebs, o2, etc. 10. h/o DVTs in the past - eliquis. 11. CKD stage 3 - creatinine stable. BMP am for stability. 12. Hypothyroidism - compensated with most recent TSH wnl; cont synthroid. 13. T2DM - controlled but holding lantus due to NPO status and borderline low sugars at times. 14. chronic diastolic CHF - compensated. 15. right-sided elevated Hemidiaphragm - S/P Plication in the past. 16. depression - celexa. 17. HTN - BPs are low or low-normal; hold home meds. 18. RLS - requip. 19. hypokalemia - resolved. 20. metabolic encephalopathy - 2nd to UTI, pneumonia, etc - improving. Delores extensively updated once again today Delores states that she and her mom had a conversation several days ago and her mother told her she would want a PEG and would want full resuscitative efforts. this is the opposite of prior discussions during her previous hospital stay on Monday would suggest joint meeting between the hospitalist attending, Ms. Raegan Estrellar, pulmonary, and speech -- if possible -- to address goals of care Delores has previously refused to have palliative care involved Continued [facility] stay due to: abnormal vital signs, inadequate po fluid intake, voiding difficulties, ambulation difficulties, multiple IV medications needed Discharge planning: uncertain
[2018-04-27] MEDS: METHYLPREDNISOLONE IV 40 MG in SYRINGE 0 ML IV SCH (02:29)
[2018-04-27 04:54] LABS: HEMATOCRIT 34.3 % (37-47); HEMOGLOBIN 11.2 g/dL (12.0-16.0)
[2018-04-27 05:14] LABS: CREATININE 1.5 mg/dl (0.60-1.20); POTASSIUM 3.6 mmol/L (3.5-5.1)
[2018-04-27] MEDS: LEVOTHYROXINE 100 MCG TAB PO SCH (06:00)
[2018-04-27] MEDS: INSULIN ASPART 100 UNITS/ML 3 ML PEN SC SCH ×4 (06:12→18:13)
[2018-04-27] MEDS: PIPERACILL/TAZOBAC IV 4.5 GM in DEXTROSE 5% 100ML 100 ML IV SCH (06:13)
[2018-04-27] MEDS: ALBUT/IPRATROP 3MG/0.5MG NEB 3 ML VIAL INH SCH ×3 (07:51→16:21)
[2018-04-27] MEDS ORDERED: LEVOFLOXACIN CONSULT ACTIVE PRN (08:30)
[2018-04-27] MEDS: TRAMADOL HCL 50 MG TAB PO PRN (08:53)
[2018-04-27] MEDS: LEVOFLOXACIN / D5W 750 MG in PREMIXED IN D5W 150 ML IV SCH (08:53)
[2018-04-27] MEDS: MULTIVITAMINS W/MINERALS 15ML UDP PO SCH (08:55)
[2018-04-27] MEDS: SUCRALFATE 1 GM/10 ML UDC PO SCH (08:56)
[2018-04-27] MEDS: APIXABAN 2.5 MG TAB PO SCH (08:56)
[2018-04-27] MEDS: DOCUSATE SODIUM/SENNA 50/8.6MG TAB PO SCH (09:00)
[2018-04-27] MEDS: CHOLECALCIFEROL 1000 INTER.UNIT TAB PO SCH (09:00)
[2018-04-27] MEDS: CALCITRIOL 0.25 MCG CAP PO SCH (09:00)
[2018-04-27] MEDS: GABAPENTIN 100 MG CAP PO SCH (09:00)
[2018-04-27] MEDS: MAGNESIUM OXIDE 400 MG TAB PO SCH (09:00)
[2018-04-27] MEDS ORDERED: METHYLPREDNISOLONE IV 40 MG in SYRINGE 0 ML IV SCH (10:00)
--- NOTE | 2018-04-27 10:15 | Gastrointestinal Consultation ---
Gastrointestinal Consultation Date of Consultation: Apr 27, 2018 Attending Physician: Dr. Lockwood Consulting Physician: Kimberly Avalos PA-C Reason for Consultation: GI bleeding History of Present Illness Patient is a 83 year old female with a past medical history of chronic respiratory failure, paroxysmal atrial fibrillation, dysphagia, acute on chronic anemia, recurrent UTI, LUE swelling, CKD 3, hypothyroidism, DM2, chronic diastolic CHF, depression, HTN, gastroparesis, RLS, & COPD who is presently hospitalized with acute hypoxic respiratory failure. She has a tracheostomy in place. She has been diagnosed with a pseudomonas pneumonia. She also has an acute COPD exacerbation. GI has been consulted for further evaluation regarding GI bleeding. Reportedly the patient had a bowel movement with bright red blood streaked throughout. She does take Eliquis. She indicates that this happens from time to time. She has a history of internal hemorrhoids. She takes Eliquis. Her hemoglobin was lower than baseline on 04/26, but after transfusion, it improved to 11.2/34.3. She is unable to participate much in the conversation as she reports "I'm tired." Given her dysphagia, during her last evaluation by GI as an inpatient she was told that she is not a candidate for a PEG tube due to her gastroparesis. There seems to be some discrepancy between what the patient is reporting that she desires and what the daughter is reporting. Past Medical/Surgical History Medical Problems: (1) Aspiration pneumonia Status: Acute (2) Cervical strain Status: Acute (3) Contusion of multiple sites Status: Acute (4) COPD exacerbation Status: Acute (5) Fall Status: Acute (6) Fall from chair, initial encounter Status: Acute (7) Fatigue Status: Acute (8) Head injury Status: Acute (9) Head injury Status: Acute (10) Hip pain Status: Acute (11) Hypocalcemia Status: Acute (12) Hypoxia Status: Acute (13) Hypoxia Status: Acute (14) Lower extremity edema Status: Acute (15) PNA (pneumonia) Status: Acute (16) Pneumonia Status: Acute (17) Pneumonitis Status: Acute (18) Reactive airway disease Status: Acute (19) Right flank pain Status: Acute (20) Sepsis Status: Acute (21) Sepsis Status: Acute (22) Syncope Status: Acute (23) Traumatic compression fracture of third thoracic vertebra Status: Acute (24) Vaginal yeast infection Status: Acute (25) Weakness Status: Acute (26) Yeast vaginitis Status: Acute Past Medical History: chronic respiratory failure, paroxysmal atrial fibrillation, dysphagia, acute on chronic anemia, recurrent UTI, LUE swelling, CKD 3, hypothyroidism, DM2, chronic diastolic CHF, depression, HTN, RLS, & COPD Past Surgical History: Diaphragm surgery, Thyroid, knee, neck, CTS, adrenalectomy, arthrodesis of the lumbar and cervical spine, breast biopsy, bronchoscopy, hysterectomy, tonsillectomy, vaginal sling Family History Diabetes mellitus FH: cancer FH: gallbladder disease FH: heart disease FH: lung disease Hypertension Kidney disease or stones Social History Smoking Status: Never Smoker Alcohol Use: none Drug Use: none Marital Status: Housing Status: lives with family Occupation Status: retired Allergies Coded Allergies: Adhesives (Verified Allergy, Severe, TAPE-REDNESS, BLISTERS, 03/19/18) Pneumococcal Vaccine (Verified Allergy, Severe, SHORTNESS OF BREATH, ) Metronidazole (Verified Allergy, Intermediate, skin rash, 03/19/18) allergic to generic form Phenazopyridine (Verified Allergy, Intermediate, abdominal pain/rash, ) Erythromycin (Verified Allergy, Mild, RASH, 03/19/18) Salicylates (Verified Allergy, Unknown, pt states rash with ASA 325 but not ASA 81mg, 03/19/18) Sulfa Antibiotics (Verified Allergy, Unknown, ON MED LIST, 03/19/18) Tetracycline (Verified Allergy, Unknown, RASH, 03/19/18) Morphine (Verified Adverse Reaction, Intermediate, urinary retention - oral morphine only, 03/19/18) Diltiazem (Verified Adverse Reaction, Mild, FLUID RETENTION, 03/19/18) Metoclopramide (Verified Adverse Reaction, Mild, TREMORS, 03/19/18) Bacitracin (Verified Adverse Reaction, Unknown, "MAKES IT WORSE"-OK IF NOT OTC MEDICATION, 03/19/18) OKAY IF NOT OVER THE COUNTER MEDICATION Current Medications Home Meds and Scripts Medications Dose Route/Sig Max Daily Dose Days Date Category Dose Instructions Protonix (Pantoprazole) 40 Mg Tab 1 Tab PO DAILY 30 04/24/18 Reported Ultram (Tramadol HCl) 50 Mg Tab 1 Tab PO TID PRN 30 04/24/18 Reported Milk Of Magnesia (Magnesium Hydroxide) 30 Ml Susp 30 Ml PO 04/24/18 Reported Ventolin Hfa (Albuterol) 200 Puffs/88327 Mcg Aers 2-4 Puffs INH Q6H 04/24/18 Reported Lipitor (Atorvastatin Calcium) 10 Mg Tab 1 Tab PO DAILY 30 04/24/18 Reported Multivitamin (Multiple Vitamins W/ Minerals) 1 Liq Liq 15 Ml PO QAM 30 04/17/18 Rx Prednisone 20 Mg Tab 20 Mg PO QAM 30 04/17/18 Rx indefinitely until tapered down by Pulmonology Novolog Flexpen (Insulin Aspart) 100 Units/Ml Inj 0 Units SC ACHS 30 04/17/18 Rx Senokot S (Sennosides-Docusate Sodium) 1 Tab Tab 1 Tab PO BID 04/17/18 Rx Miralax (Polyethylene) 17 Gm Pow 17 Gm PO DAILY PRN 04/17/18 Rx Bisac-Evac (Bisacodyl) 10 Mg Supp 10 Mg NH DAILY PRN 04/17/18 Rx Klor-Con M20 (Potassium Chloride) 20 Meq Tabcr 20 Meq PO QAM 30 04/17/18 Rx [Boost Plus Vanilla] 1 CAN Liqd 0.5 Can PO QID 30 04/17/18 Rx Gabapentin 100 Mg Cap 200 Mg PO QAM 04/17/18 Rx Amiodarone HCl 200 Mg Tab 200 Mg PO DAILY 04/17/18 Rx Eliquis (Apixaban) 2.5 Mg Tab 2.5 Mg PO BID 04/17/18 Rx Midodrine HCl (Midodrine) 2.5 Mg Tab 2.5 Mg PO TID@08,12,17 PRN 04/17/18 Rx Linzess (Linaclotide) 290 Mcg Cap 290 Mcg PO DAILY 30 04/17/18 Rx Neurontin (Gabapentin) 300 Mg Cap 300 Mg PO HS 30 04/17/18 Rx Calcium Carbonate 1,250 Mg Tab 1 Tab PO QAM 04/17/18 Rx Systane Ultra (Polyethylene Glycol-Propylene) 1 Renetta Renetta 1 Drops OP QID 03/15/18 Reported Requip (Ropinirole Hydrochloride) 0.5 Mg Tab 0.5 Mg PO HS 03/15/18 Reported TAKE 2 HR BEFORE HS Carafate (Sucralfate) 1 Gm/10 Ml Nicole 10 Ml PO QID 03/15/18 Reported D3-1000 (Cholecalciferol) 1,000 Unit Tab 1,000 Units PO DAILY 02/19/18 Reported B-12 (Cyanocobalamin) 1,000 Mcg Cap 1,000 Mcg PO QAM 02/19/18 Reported Levothyroxine Sodium 100 Mcg Tab 100 Mcg PO DAILY 12/13/17 Reported Tylenol Arthritis Ext Rel (Acetaminophen) 650 Mg Cplt 650 Mg PO Q4 PRN 12/13/17 Reported Citalopram Hydrobromide 20 Mg Tab 30 Mg PO DAILY 09/19/17 Reported Dexilant (Dexlansoprazole) 60 Mg Cap 60 Mg PO QAM 07/07/17 Reported Calcitriol 0.25 Mcg Cap 0.25 Mcg PO DAILY 07/07/17 Reported TAKE WITH CALCIUM Melatonin 10 Mg Tab 10 Mg PO HS 04/13/17 Reported Duoneb (Ipratropium-Albuterol) 3 Ml Nebu 1 Treatment INH QID 10/20/16 Reported Zocor (Simvastatin) 20 Mg Tab 20 Mg PO HS 12/20/15 Reported Riboflavin 400 Mg Tab 400 Mg PO QAM 12/01/15 Reported Review of Systems Constitutional: + fatigue Eyes: No problem reported Respiratory: + sputum, + shortness of breath Cardiac: + edema, No chest pain Abdomen: + problem reported (blood in stool), No pain, No nausea, No vomiting, No diarrhea, No constipation Musculoskeletal: No joint pain Neuro: No problem reported Psych: No problem reported Skin: No problem reported Physical Exam Date Time Temp Pulse Resp B/P (MAP) Pulse Ox O2 Delivery O2 Flow Rate FiO2 04/27/18 07:00 86 18 99 Trach Collar 04/27/18 06:59 36.6 71 17 142/116 (125) 100 Trach Collar 04/27/18 03:26 36.8 68 20 132/106 (115) 98 Trach Collar 04/27/18 00:00 96 Trach Collar 25 04/26/18 23:07 37.3 82 19 126/103 (111) 96 Trach Collar 04/26/18 20:00 Trach Collar 6.0 25 04/26/18 19:18 70 18 96 Trach Collar 28 04/26/18 18:53 37.0 72 18 140/96 (111) 98 Trach Collar 04/26/18 15:38 36.9 73 19 101/44 (63) 98 Trach Collar 04/26/18 15:36 70 18 96 Trach Collar 28 04/26/18 12:00 Humidified Oxygen 6.0 28 Trach Collar 04/26/18 11:27 70 18 99 Trach Collar 28 04/26/18 11:02 36.9 71 18 154/100 (118) 98 Trach Collar 6.0 General Appearance: + mild distress Eyes: normal inspection ENT: + pertinent finding (trach in place) Respiratory/Chest: + decreased breath sounds, + wheezing Cardiovascular: regular rate, rhythm Abdomen: normal bowel sounds, non tender, soft Extremities: non-tender, + pertinent finding (LUE swelling) Neurologic/Psych: alert Laboratory Results Last 24 Hours Test 04/26/18 11:10 04/26/18 16:21 04/27/18 00:16 04/27/18 04:35 Bedside Glucose 113 mg/dl 146 mg/dl 151 mg/dl Stool Occult Blood POSITIVE Test 04/27/18 04:45 04/27/18 06:09 Hemoglobin 11.2 g/dL Hematocrit 34.3 % Sodium Level 140 mmol/L Potassium Level 3.6 mmol/L Chloride Level 106 mmol/L Carbon Dioxide Level 24 mmol/L Anion Gap 10.0 mmol/L Blood Urea Nitrogen 19 mg/dl Creatinine 1.50 mg/dl Est Creatinine Clear Calc Drug Dose 30.0 ml/min Estimated GFR () 37.5 Estimated GFR (Non- 32.3 BUN/Creatinine Ratio 12.4 Random Glucose 120 mg/dl Calcium Level 7.0 mg/dl Bedside Glucose 147 mg/dl Impression Patient is a 83 year old female hospitalized with acute on chronic respiratory failure 2/2 pseudomonas pneumonia & COPD exacerbation with a trach in place. GI was consulted for GI bleeding and acute on chronic anemia. The patient was transfused 2 units PRBCs and her hemoglobin is now 11.2/34.3. She is on Eliquis. She had blood streaked stool today. Plan 1) Patient is not a good candidate for endoscopic evaluation due to multiple factors including respiratory failure and Pseudomonas pneumonia as well as significant medical comorbidities. No plans for endoscopy. 2) As discussed during previous admission, patient is not a candidate for PEG placement due to gastroparesis. While placing a feeding tube over the age of 75 comes with significant risk including infection, continued aspiration, and has not been demonstrated to prolong life, if this is the decision made by the patient, she would need surgical evaluation for a J tube. 3) Protonix 40 mg BID. 4) Continue to monitor H/H. Continue to monitor for bleeding, though patient has a history of internal hemorrhoids and is on Eliquis. 5) Would recommend a brie discussion with family, patient, & palliative care. Patient and daughter are contradicting each other in terms of goals of care. Conversation may be more successful if the idea is delivered by a provider with whom the patient and family have a significant established relationship. Thank you for allowing us to participate in the care of this patient. If you should have any further questions or concerns, do not hesitate to contact us. Agree with LUPE Robins as above Abd: Soft, NT, ND Continue supportive care No plans for endoscopic workup secondary to multiple medical comorbidities. Agree with further discussion concerning palliative care.
[2018-04-27] MEDS: LEVOTHYROXINE SODIUM INJ 50 MCG in SYRINGE 0 ML IV SCH (10:24)
[2018-04-27] MEDS: D5W AND NSS 1,000 ML IV SCH ×2 (10:27→22:41)
--- NOTE | 2018-04-27 10:40 | Hospitalist Progress Note ---
Hospitalist Progress Note Date of Service Apr 27, 2018. Subjective Pt evaluation today including: conversation w/ patient, conversation w/ family (Daughter Grisel on the phone) Voiding: christian catheter in place Patient had a bowel movement this morning streaked with bright red blood. Blood pressure stable. The nurse also reports suctioning putting out of her trach today but was given with her pills. She was then made completely n.p.o. Patient continues to complain of mostly right-sided but some epigastric abdominal pain. When asked about her goals of care, she told me that she did not want a feeding tube, she would like to eat and accept the risk of aspiration. She told me that she did not want to keep coming back to the hospital for treatment for recurrent aspiration. She was okay with continuing antibiotics for now. However, she did report that she did want to be a full code with resuscitation and intubation if necessary. When discussing how this did not seem compatible with her wish to not to return to the hospital, she continued to insist that she remain a full code. She does not want a palliative care consultation and wishes to only discuss her goals of care with myself. She does want me to include her daughter. Her daughter and I also discussed the patient's wishes on the phone. She is coming in to talk to her mom today further about this. Telemetry with normal sinus rhythm in the 60s-80s, no arrhythmias. All Other Systems: Reviewed and Negative Objective Vital Signs Date Time Temp Pulse Resp B/P (MAP) Pulse Ox O2 Delivery O2 Flow Rate FiO2 04/27/18 07:00 86 18 99 Trach Collar 04/27/18 06:59 36.6 71 17 142/116 (125) 100 Trach Collar 04/27/18 03:26 36.8 68 20 132/106 (115) 98 Trach Collar 04/27/18 00:00 96 Trach Collar 25 04/26/18 23:07 37.3 82 19 126/103 (111) 96 Trach Collar 04/26/18 20:00 Trach Collar 6.0 25 04/26/18 19:18 70 18 96 Trach Collar 28 04/26/18 18:53 37.0 72 18 140/96 (111) 98 Trach Collar 04/26/18 15:38 36.9 73 19 101/44 (63) 98 Trach Collar 04/26/18 15:36 70 18 96 Trach Collar 28 04/26/18 12:00 Humidified Oxygen 6.0 28 Trach Collar 04/26/18 11:27 70 18 99 Trach Collar 28 04/26/18 11:02 36.9 71 18 154/100 (118) 98 Trach Collar 6.0 Physical Exam General Appearance: WD/WN, no apparent distress Eyes: normal inspection, EOMI, sclerae normal ENT: hearing grossly normal Neck: trachea midline (With trach collar in place) Respiratory/Chest: no respiratory distress, no accessory muscle use, + rhonchi (A few upper airway rhonchi bilaterally) Cardiovascular: regular rate, rhythm, no murmur, + pertinent finding (Left upper extremity with 2+ pitting edema) Abdomen: normal bowel sounds, soft, + tenderness (Diffusely without guarding or rebound tenderness, slightly more tender in epigastric and right upper quadrant regions) Extremities: no calf tenderness Neurologic/Psychiatric: alert, normal mood/affect, + pertinent finding ( Oriented to person in place) Skin: normal color, warm/dry, no rash Laboratory Results Last 24 Hours Test 04/26/18 11:10 04/26/18 16:21 04/27/18 00:16 04/27/18 04:35 Bedside Glucose 113 mg/dl 146 mg/dl 151 mg/dl Stool Occult Blood POSITIVE Test 04/27/18 04:45 04/27/18 06:09 Hemoglobin 11.2 g/dL Hematocrit 34.3 % Sodium Level 140 mmol/L Potassium Level 3.6 mmol/L Chloride Level 106 mmol/L Carbon Dioxide Level 24 mmol/L Anion Gap 10.0 mmol/L Blood Urea Nitrogen 19 mg/dl Creatinine 1.50 mg/dl Est Creatinine Clear Calc Drug Dose 30.0 ml/min Estimated GFR () 37.5 Estimated GFR (Non- 32.3 BUN/Creatinine Ratio 12.4 Random Glucose 120 mg/dl Calcium Level 7.0 mg/dl Bedside Glucose 147 mg/dl Assessment and Plan 83yo female: 1. acute/chronic hypoxic respiratory failure/aspiration pneumonia due to new recurrent aspiration pneumonia and COPD exacerbation. Culprit pathogen is pseudomonas. She also appears to have COPD exacerbation. Patient continues to aspirate pudding with her pills today-changed to n.p.o. and no medications to be given orally-patient declines feeding tube which would not significantly decrease her risk of aspiration anyway; she would like to eat for comfort and accept the risk of recurrent aspiration-she tells me she would not like to continue to return to the hospital for treatment for aspiration pneumonia-declines palliative care consultation-awaiting daughter to come in to further discuss and then will fill out POLST form stating as such. Received Zosyn 3 days-changed to IV Levaquin today to finish out a 7 day course -this will also cover for UTI as below Cont pulmonary toilet and suctioning along with nebs. Continue solumedrol 40mg q12h. No wean today. Eventually return to 20 mg daily prednisone if taking p.o. again -Consult pulmonology for further input 2. sepsis 2nd to RLL pneumonia (and UTI) - improved. 3. paroxysmal a. fib - diagnosed during previous hospital stay - remains in NSR. -Holding amiodarone now to prevent aspiration -Holding Eliquis for GI bleeding 4. dysphagia with aspiration - video swallow performed on 04/26; aspirates thins on the study. During previous hospitalization patient adamantly refused PEG placement with other discussion as above. Although she has tolerated thickened liquids speech is concerned she is at high risk of aspirating such as well. 5. acute/chronic anemia - s/p 2 units PRBCs and hemoglobin improved to 11.2. Hemoccult stool positive and with gross bleeding today -Now with small amount of GI bleeding rectally-not likely to be significant drop in hemoglobin -Check CBC at noon -Holding Eliquis 6. UTI - 2nd to Proteus and Citrobacter both sensitive to Levaquin. Received Zosyn and I will change to Levaquin to complete 7 day course 7. LUE swelling - no DVT on doppler. Is this dependent edema from not being able to move that arm? Her daughter reports she had had an infiltrated IV in that arm but I would have expected much better resolution of the edema as the edema has been present for weeks. Would elevate as much as possible. Follow carefully. 8. protein calorie malnutrition, moderate - ongoing issue due to NPO status, etc. 9. COPD with exacerbation - hold prednisone orally, cont solumedrol 40mg q12h. nebs, o2 via trach collar, etc. 10. h/o DVTs in the past - eliquis now on hold as above. 11. CKD stage 3 -with history of ATN with [facility] last admission with creatinine up to the 6 range. Continues to improve and is with creatinine stable today at 1.50 -Renally dose medications -Avoid nephrotoxins -Follow BMP 12. Hypothyroidism - compensated with most recent TSH wnl; cont synthroid but change to IV today. 13. T2DM - controlled but holding lantus due to NPO status and borderline low sugars at times. 14. chronic diastolic CHF - compensated. 15. right-sided elevated Hemidiaphragm - S/P Plication in the past. Contributes to her hypoventilation 16. depression - celexa now on hold due to n.p.o. status. 17. HTN - BPs are low or low-normal; holding home meds 18. RLS - requip now on hold due to n.p.o. status. 19. hypokalemia - resolved. -Follow BMP and replace IV as needed 20. Acute metabolic encephalopathy - 2nd to UTI, pneumonia, etc -resolved 21. Rectal bleeding-likely secondary to internal hemorrhoids in the setting of taking Eliquis -Hold Eliquis -Follow CBC at noon -Appreciate GI consultation-no plans for endoscopy at this time given ongoing infections and multiple comorbidities and risk of anesthesia 22. History of constipation-is moving bowels regularly at this time -Hold off on home Linzess, hold senna/docusate Delores extensively updated once again today on the phone Disposition-remain on telemetry, will eventually need SNF placement Remains full code at this time as per discussion with patient-her daughter plans on coming in to further discuss her mother's goals of care and I will come back to the bedside later and discuss with them as well. Patient continues to decline palliative care consultation
[2018-04-27] MEDS ORDERED: PANTOprazole SOD 40 MG TAB PO SCH (11:00)
[2018-04-27] MEDS: HYDROmorphone INJ 0.5 MG/0.5 ML SYR IV PRN ×2 (12:07→18:16)
[2018-04-27 12:25] LABS: HEMATOCRIT 33.1 % (37-47); HEMOGLOBIN 10.7 g/dL (12.0-16.0); MEAN CELL VOLUME 90.9 fL (80-100); MEAN CORPUSCULAR HEMOGLOBIN 29.4 pg (25-34); MEAN CORPUSCULAR HGB CONC 32.3 g/dl (32-36); PLATELET COUNT 179 K/uL (130-400); RED CELL DISTRIBUTION WIDTH CV 16.7 % (11.5-14.5); WHITE BLOOD COUNT 5.15 K/uL (4.8-10.8)
--- NOTE | 2018-04-27 15:21 | Pulmonary Consultation ---
History General Date of Service: Apr 27, 2018. Stated Complaint: Chronic respiratory failure with tracheostomy. HPI Dear Dr. Lockwood: Thank you for the kind referral to pulmonary service. 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 The patient had tracheostomy tube placed to bypass the pharyngeal critical pressure in a patient with severe obstructive sleep apnea, the patient improved to the point that her cuffed tracheostomy tube was changed to an uncuffed and while she was at the rehab, she was found to be hypotensive, with increased shortness of breath, the patient was brought to the hospital and was treated for pansensitive Pseudomonas in the sputum. When I interviewed with the patient, she was able to talk to me with Passy-Melba valve. She denies any shortness of breath or cough, no sputum production. She denies any chest pain but she does have diffuse abdominal pain that has been persistent. Previously she was treated for ileus but does not appear to be distended at this point. The patient decided to change her CODE STATUS also to a full code. During her hospital stay, the patient was treated for Pseudomonas, her chest x- ray did not reveal an infiltrate but rather atelectasis, tracheostomy tube was in good position, she is tolerating Passy-Lizeth valve, her blood pressure has been maintained as well. She is already on midodrine for adrenal supplement, she is chronic steroids use with prednisone lowest dose of 20 mg, currently she is on Solu-Medrol 40 mg IV every 12 hours. Historian: patient, other (Records and the patient is known to me from the past.) Review of Systems Constitutional: reports: no symptoms Eyes: reports: no symptoms ENT: reports: other (Tracheostomy tube in place.) Cardiovascular: reports: no symptoms Respiratory: reports: cough, shortness of breath Gastrointestinal: reports: other (Diffuse vague abdominal pain but the abdomen is soft and bowel sounds are positive.) Genitourinary - Female: denies: no symptoms, as stated in HPI, dysmenorrhea, dysuria, hematuria, hesitancy, menorrhagia, metrorrhagia, , rash, urinary frequency, urinary incontinence, urinary retention, urinary urgency, vaginal bleeding, vaginal discharge, vaginal itching, vulvadynia, other Musculoskeletal: reports: myalgias, other (Generalized weakness) Neurologic: reports: other (Myopathy secondary to steroids) Endocrine: polyuria, denies: no symptoms, as stated in HPI, cold intolerance, heat intolerance, hair changes, goiter, polydipsia, skin changes, other Hematologic / Lymphatic: denies: no symptoms, as stated in HPI, abnormal clotting, adenopathy, anemia, easy bleeding, easy bruising, gums bleeding, petechiae, other Past Medical History Past Medical History: As above with the first section. Past Medical History: anxiety, asthma, depression, hypothyroidism, osteoarthritis, urinary tract infection, other Past Surgical History: adenoidectomy, appendectomy, hysterectomy, orthopedic surgery, spinal surgery, thyroidectomy, TKR, tonsillectomy Family History Diabetes mellitus FH: cancer FH: gallbladder disease FH: heart disease FH: lung disease Hypertension Kidney disease or stones Social History Hx Tobacco Use In Past Year?: No Smoking Status: Never Smoker Alcohol: no current use Drug Use: none Marital status: Housing status: lives with family Occupational Status: retired Immunizations History of Influenza Vaccine: N/A Influenza Vaccine Date: Jun 18, 2012 History of Tetanus Vaccine?: Yes Tetanus Immunization Date: Mar 18, 2004 History of Pneumococcal: Yes Pneumococcal Date: May 31, 2010 History of Hepatitis B Vaccine: No History of MDRO History of MDRO: Yes Type of MDRO: MRSA Allergies Coded Allergies: Adhesives (Verified Allergy, Severe, TAPE-REDNESS, BLISTERS, 03/19/18) Pneumococcal Vaccine (Verified Allergy, Severe, SHORTNESS OF BREATH, ) Metronidazole (Verified Allergy, Intermediate, skin rash, 03/19/18) allergic to generic form Phenazopyridine (Verified Allergy, Intermediate, abdominal pain/rash, ) Erythromycin (Verified Allergy, Mild, RASH, 03/19/18) Salicylates (Verified Allergy, Unknown, pt states rash with ASA 325 but not ASA 81mg, 03/19/18) Sulfa Antibiotics (Verified Allergy, Unknown, ON MED LIST, 03/19/18) Tetracycline (Verified Allergy, Unknown, RASH, 03/19/18) Morphine (Verified Adverse Reaction, Intermediate, urinary retention - oral morphine only, 03/19/18) Diltiazem (Verified Adverse Reaction, Mild, FLUID RETENTION, 03/19/18) Metoclopramide (Verified Adverse Reaction, Mild, TREMORS, 03/19/18) Bacitracin (Verified Adverse Reaction, Unknown, "MAKES IT WORSE"-OK IF NOT OTC MEDICATION, 03/19/18) OKAY IF NOT OVER THE COUNTER MEDICATION Current Medications Reported Home Medications Medications Dose Route/Sig Max Daily Dose Days Date Category Dose Instructions Protonix (Pantoprazole) 40 Mg Tab 1 Tab PO DAILY 30 04/24/18 Reported Ultram (Tramadol HCl) 50 Mg Tab 1 Tab PO TID PRN 30 04/24/18 Reported Milk Of Magnesia (Magnesium Hydroxide) 30 Ml Susp 30 Ml PO 04/24/18 Reported Ventolin Hfa (Albuterol) 200 Puffs/66370 Mcg Aers 2-4 Puffs INH Q6H 04/24/18 Reported Lipitor (Atorvastatin Calcium) 10 Mg Tab 1 Tab PO DAILY 30 04/24/18 Reported Multivitamin (Multiple Vitamins W/ Minerals) 1 Liq Liq 15 Ml PO QAM 04/17/18 Rx Prednisone 20 Mg Tab 20 Mg PO QAM 04/17/18 Rx indefinitely until tapered down by Pulmonology Novolog Flexpen (Insulin Aspart) 100 Units/Ml Inj 0 Units SC ACHS 04/17/18 Rx Senokot S (Sennosides-Docusate Sodium) 1 Tab Tab 1 Tab PO BID 04/17/18 Rx Miralax (Polyethylene) 17 Gm Pow 17 Gm PO DAILY PRN 04/17/18 Rx Bisac-Evac (Bisacodyl) 10 Mg Supp 10 Mg DC DAILY PRN 04/17/18 Rx Klor-Con M20 (Potassium Chloride) 20 Meq Tabcr 20 Meq PO QAM 04/17/18 Rx [Boost Plus Vanilla] 1 CAN Liqd 0.5 Can PO QID 04/17/18 Rx Gabapentin 100 Mg Cap 200 Mg PO QAM 04/17/18 Rx Amiodarone HCl 200 Mg Tab 200 Mg PO DAILY 04/17/18 Rx Eliquis (Apixaban) 2.5 Mg Tab 2.5 Mg PO BID 04/17/18 Rx Midodrine HCl (Midodrine) 2.5 Mg Tab 2.5 Mg PO TID@ PRN 04/17/18 Rx Linzess (Linaclotide) 290 Mcg Cap 290 Mcg PO DAILY 30 04/17/18 Rx Neurontin (Gabapentin) 300 Mg Cap 300 Mg PO HS 30 04/17/18 Rx Calcium Carbonate 1,250 Mg Tab 1 Tab PO QAM 04/17/18 Rx Systane Ultra (Polyethylene Glycol-Propylene) 1 Renetta Renetta 1 Drops OP QID 03/15/18 Reported Requip (Ropinirole Hydrochloride) 0.5 Mg Tab 0.5 Mg PO HS 03/15/18 Reported TAKE 2 HR BEFORE HS Carafate (Sucralfate) 1 Gm/10 Ml Nicole 10 Ml PO QID 03/15/18 Reported D3-1000 (Cholecalciferol) 1,000 Unit Tab 1,000 Units PO DAILY 02/19/18 Reported B-12 (Cyanocobalamin) 1,000 Mcg Cap 1,000 Mcg PO QAM 02/19/18 Reported Levothyroxine Sodium 100 Mcg Tab 100 Mcg PO DAILY 12/13/17 Reported Tylenol Arthritis Ext Rel (Acetaminophen) 650 Mg Cplt 650 Mg PO Q4 PRN 12/13/17 Reported Citalopram Hydrobromide 20 Mg Tab 30 Mg PO DAILY 09/19/17 Reported Dexilant (Dexlansoprazole) 60 Mg Cap 60 Mg PO QAM 07/07/17 Reported Calcitriol 0.25 Mcg Cap 0.25 Mcg PO DAILY 07/07/17 Reported TAKE WITH CALCIUM Melatonin 10 Mg Tab 10 Mg PO HS 04/13/17 Reported Duoneb (Ipratropium-Albuterol) 3 Ml Nebu 1 Treatment INH QID 10/20/16 Reported Zocor (Simvastatin) 20 Mg Tab 20 Mg PO HS 12/20/15 Reported Riboflavin 400 Mg Tab 400 Mg PO QAM 12/01/15 Reported Physical Physical Exam Vital Signs: Date Time Temp Pulse Resp B/P (MAP) Pulse Ox O2 Delivery O2 Flow Rate FiO2 04/27/18 11:49 69 16 100 Trach Collar 28 04/27/18 11:15 36.9 80 22 99 Trach Collar 7.0 28 04/27/18 08:05 97 Trach Collar 25 04/27/18 07:00 86 18 99 Trach Collar 28 04/27/18 06:59 36.6 71 17 142/116 (125) 100 Trach Collar 04/27/18 03:26 36.8 68 20 132/106 (115) 98 Trach Collar 04/27/18 00:00 96 Trach Collar 25 04/26/18 23:07 37.3 82 19 126/103 (111) 96 Trach Collar 04/26/18 20:00 Trach Collar 6.0 25 04/26/18 19:18 70 18 96 Trach Collar 28 04/26/18 18:53 37.0 72 18 140/96 (111) 98 Trach Collar 04/26/18 15:38 36.9 73 19 101/44 (63) 98 Trach Collar 04/26/18 15:36 70 18 96 Trach Collar 28 General Appearance: WELL-APPEARING, obese, other (Chronically ill with tracheostomy tube in place.) Eyes: EOMI ENT: other (Tracheostomy tube in place, appeared well maintained, no secretions , tolerating Passy-Melba valve.) Neck: NO STRIDOR Respiratory: rhonchi Cardiovasular: NORMAL S1S2, NO M/G/R, NO MURMUR Abdomen: NO GUARDING, occult rectal blood, other (Diffuse tenderness.) Lower Extremities: edema Neuro: ALERT, ORIENTED x 3, global weakness Psychiatric: flat affect Diagnostics Labs Results Past 24 Hours Test 04/26/18 16:21 04/27/18 00:16 04/27/18 04:35 04/27/18 04:45 Range/Units Bedside Glucose 146 151 70-90 mg/dl Stool Occult Blood POSITIVE NEGATIVE Hemoglobin 11.2 12.0-16.0 g/dL Hematocrit 34.3 37-47 % Sodium Level 140 136-145 mmol/L Potassium Level 3.6 3.5-5.1 mmol/L Chloride Level 106 98-107 mmol/L Carbon Dioxide Level 24 21-32 mmol/L Anion Gap 10.0 3-11 mmol/L Blood Urea Nitrogen 19 7-18 mg/dl Creatinine 1.50 0.60-1.20 mg/dl Est Creatinine Clear Calc Drug Dose 30.0 ml/min Estimated GFR () 37.5 Estimated GFR (Non- 32.3 BUN/Creatinine Ratio 12.4 10-20 Random Glucose 120 70-99 mg/dl Calcium Level 7.0 8.5-10.1 mg/dl Test 04/27/18 06:09 04/27/18 12:01 04/27/18 12:27 Range/Units Bedside Glucose 147 182 70-90 mg/dl White Blood Count 5.15 4.8-10.8 K/uL Red Blood Count 3.64 4.2-5.4 M/uL Hemoglobin 10.7 12.0-16.0 g/dL Hematocrit 33.1 37-47 % Mean Corpuscular Volume 90.9 80-100 fL Mean Corpuscular Hemoglobin 29.4 25-34 pg Mean Corpuscular Hemoglobin Concent 32.3 32-36 g/dl RDW Standard Deviation 55.0 36.4-46.3 fL RDW Coefficient of Variation 16.7 11.5-14.5 % Platelet Count 179 130-400 K/uL Mean Platelet Volume 10.0 7.4-10.4 fL Diagnostic Radiology Chest x-ray was reviewed which showed tracheostomy tube in place, bibasilar atelectasis, no effusion. Her labs were reviewed which showed no leukocytosis today. Rest of her labs are within her baseline. Micro profile revealed Pseudomonas in the sputum. Impression Assessment and Plan 1. Chronic hypoxic respiratory failure, currently patient is on trach mask. Status post tracheostomy. 2. Sputum is colonized with Pseudomonas, likely the patient had difficulty breathing due to mucoid impaction which she did have in the past. 3. Morbid obesity with obstructive sleep apnea, status post tracheostomy tube. 4. Steroid-induced myopathy. 5. Diaphragm plication. 6. Diastolic heart failure. 7. Renal insufficiency on prednisone at minimum dose of 20 mg. 8. Recurrent aspiration, the patient does have poor cough reflex when she swallows. Plan: 1. Continue with Passy-Lizeth valve, watch for mucoid impaction. 2. Change steroids to prednisone 40 mg p.o. daily. 3. Continue with oral intake, this was the patient choice, she understands the risk of aspiration in her case. She declined PEG tube in the past. 4. The patient change in her current CODE STATUS to full code, which does not seem to be realistic. 5. Glucose control. 6. Continue bronchodilators. 7. Do not downsize the tracheostomy tube. 8. Agree with short course of antibiotics for 7 days only. Likely will not eradicate Pseudomonas in the sputum. 9. Patient can be returned to the rehab. Thank you for your kind referral.
[2018-04-27] MEDS: AMIODARONE 200 MG TAB PO SCH (18:46)
[2018-04-27] MEDS: ATORVASTATIN 10 MG TAB PO SCH (18:46)
[2018-04-27] MEDS: CITALOPRAM 20 MG TAB PO SCH (18:46)
[2018-04-27] MEDS: PANTOprazole INJ 40 MG in SYRINGE 0 ML IV SCH (20:55)
[2018-04-28] VITALS (11 sets, daily range): BP systolic 130–182; BP diastolic 68–84; PULSE 68–91; TEMP 37.1–37.8; O2SAT 92–100
[2018-04-28 04:44] LABS: HEMATOCRIT 32.4 % (37-47); HEMOGLOBIN 10.4 g/dL (12.0-16.0); IG# 0.16 K/uL (0.00-0.02); LYMPH % 13.9 %; LYMPH ABS # 0.63 K/uL (1.2-3.4); MEAN CELL VOLUME 91.5 fL (80-100); MEAN CORPUSCULAR HEMOGLOBIN 29.4 pg (25-34); MEAN CORPUSCULAR HGB CONC 32.1 g/dl (32-36); MEAN PLATELET VOLUME 10.2 fL (7.4-10.4); MONO % 12.4 %; MONO ABS # 0.56 K/uL (0.11-0.59); NEUT % 70.2 %; NEUT ABS # 3.18 K/uL (1.4-6.5); PLATELET COUNT 182 K/uL (130-400); RED CELL DISTRIBUTION WIDTH CV 16.5 % (11.5-14.5); RED CELL DISTRIBUTION WIDTH SD 55.2 fL (36.4-46.3); WHITE BLOOD COUNT 4.53 K/uL (4.8-10.8)
[2018-04-28 05:16] LABS: ALBUMIN 2.3 gm/dl (3.4-5.0); CALCIUM 6.7 mg/dl (8.5-10.1); CREATININE 1.21 mg/dl (0.60-1.20); POTASSIUM 3.2 mmol/L (3.5-5.1); TOTAL PROTEIN 5.3 gm/dl (6.4-8.2)
[2018-04-28] MEDS: INSULIN ASPART 100 UNITS/ML 3 ML PEN SC SCH ×5 (06:00→21:22)
[2018-04-28] MEDS: ALBUT/IPRATROP 3MG/0.5MG NEB 3 ML VIAL INH SCH ×4 (07:41→19:09)
[2018-04-28] MEDS ORDERED: CALCIUM GLUCONATE 10% 1,000 MG in SODIUM CHLORIDE 0.9% 50ML 50 ML IV STA (07:49)
[2018-04-28] MEDS ORDERED: POTASSIUM CHLR 20 MEQ / WTR 100 MEQ IV STA (07:51)
[2018-04-28] MEDS: LEVOTHYROXINE SODIUM INJ 50 MCG in SYRINGE 0 ML IV SCH (08:50)
[2018-04-28] MEDS: MAGNESIUM SULFATE 1GM / D5W 100 ML IV SCH ×2 (08:50→10:01)
[2018-04-28] MEDS: PANTOprazole INJ 40 MG in SYRINGE 0 ML IV SCH ×2 (08:51→20:13)
[2018-04-28] MEDS: MULTIVITAMINS W/MINERALS 15ML UDP PO SCH (08:51)
[2018-04-28] MEDS: HYDROmorphone INJ 0.5 MG/0.5 ML SYR IV PRN (09:04)
--- NOTE | 2018-04-28 09:25 | DIAGNOSTIC IMAGING REPORT ---
SINGLE VIEW CHEST CLINICAL HISTORY: Dyspnea. FINDINGS: An AP, portable, upright chest radiograph is compared to study dated 04/26/2018 and correlated with chest CT dated 03/24/2018. The examination is degraded by portable technique and patient rotation. A tracheostomy is unchanged in position. A right PICC line is again noted. The heart is top normal for projection and there is atherosclerotic calcification of the thoracic aorta. The pulmonary vasculature appears mildly congested. There are small pleural effusions with bibasilar consolidation. No pneumothorax is seen. The skeletal structures are osteopenic. Extensive fusion hardware is seen in the lower cervical spine and at the thoracolumbar junction. Bilateral shoulder arthroplasties are in place. Surgical clips are present in the upper abdomen. IMPRESSION: 1. Stable lines and tubes. 2. Question mild pulmonary vascular congestion. 3. There are small pleural effusions with bibasilar consolidation, unchanged from previous. This likely represents atelectasis. Clinical correlation will be required Electronically signed by: Justo Mejias M.D. 04/28/2018 9:24 AM Dictated Date/Time: 04/28/2018 9:21 AM
[2018-04-28] MEDS ORDERED: NURSING DECISION MEDICATION ORDER SCH ×2 (11:00→18:00)
--- NOTE | 2018-04-28 11:19 | Hospitalist Progress Note ---
Hospitalist Progress Note Date of Service Apr 28, 2018. Subjective Pt evaluation today including: conversation w/ patient, conversation w/ family (Daughter on the phone) Patient tried eating oatmeal this morning and had a prolonged coughing spell. After that, she felt very short of breath and anxious for a while but improved. Food was not suctioned out of the trach, but patient did not want to eat anymore after that. She tells me that she wants to be a DNR/DNI, and would like to fill out a POLST form stating that she does not want to continue to come back to the hospital for recurrent aspiration. However, she wants her daughter to confirm this before she will sign the form. When I discussed everything with the daughter later, she stated she was not ready to sign it but perhaps tomorrow. All Other Systems: Reviewed and Negative Objective Vital Signs Date Time Temp Pulse Resp B/P (MAP) Pulse Ox O2 Delivery O2 Flow Rate FiO2 04/28/18 08:00 37.4 76 20 130/78 (95) 98 Trach Collar 8.0 30 04/28/18 07:41 78 15 100 Trach Collar 30 04/28/18 03:16 37.8 68 17 100 Trach Collar 04/27/18 23:59 97 Trach Collar 8.0 30 04/27/18 23:24 36.8 74 19 97 Trach Collar 04/27/18 20:15 36.8 66 18 146/65 (92) 100 Trach Collar 04/27/18 20:00 98 Trach Collar 30 04/27/18 16:23 78 15 100 Trach Collar 28 04/27/18 15:41 67 20 104/59 (74) 100 Trach Collar 04/27/18 11:49 69 16 100 Trach Collar 28 Physical Exam General Appearance: WD/WN, no apparent distress Eyes: normal inspection, sclerae normal ENT: hearing grossly normal, pharynx normal Neck: trachea midline (With tracheostomy tube in place) Respiratory/Chest: lungs clear, normal breath sounds, no respiratory distress, no accessory muscle use Cardiovascular: regular rate, rhythm, no edema, no murmur Abdomen: normal bowel sounds, non tender, soft Extremities: normal inspection, no calf tenderness Neurologic/Psychiatric: alert, normal mood/affect, oriented x 3 Skin: normal color, warm/dry, no rash Laboratory Results Last 24 Hours Test 04/27/18 12:01 04/27/18 12:27 04/27/18 17:54 04/28/18 00:07 White Blood Count 5.15 K/uL Red Blood Count 3.64 M/uL Hemoglobin 10.7 g/dL Hematocrit 33.1 % Mean Corpuscular Volume 90.9 fL Mean Corpuscular Hemoglobin 29.4 pg Mean Corpuscular Hemoglobin Concent 32.3 g/dl RDW Standard Deviation 55.0 fL RDW Coefficient of Variation 16.7 % Platelet Count 179 K/uL Mean Platelet Volume 10.0 fL Bedside Glucose 182 mg/dl 202 mg/dl 162 mg/dl Test 04/28/18 04:20 04/28/18 05:24 04/28/18 06:08 White Blood Count 4.53 K/uL Red Blood Count 3.54 M/uL Hemoglobin 10.4 g/dL Hematocrit 32.4 % Mean Corpuscular Volume 91.5 fL Mean Corpuscular Hemoglobin 29.4 pg Mean Corpuscular Hemoglobin Concent 32.1 g/dl Platelet Count 182 K/uL Mean Platelet Volume 10.2 fL Neutrophils (%) (Auto) 70.2 % Lymphocytes (%) (Auto) 13.9 % Monocytes (%) (Auto) 12.4 % Eosinophils (%) (Auto) 0.0 % Basophils (%) (Auto) 0.0 % Neutrophils # (Auto) 3.18 K/uL Lymphocytes # (Auto) 0.63 K/uL Monocytes # (Auto) 0.56 K/uL Eosinophils # (Auto) 0.00 K/uL Basophils # (Auto) 0.00 K/uL RDW Standard Deviation 55.2 fL RDW Coefficient of Variation 16.5 % Immature Granulocyte % (Auto) 3.5 % Immature Granulocyte # (Auto) 0.16 K/uL Sodium Level 141 mmol/L Potassium Level 3.2 mmol/L Chloride Level 109 mmol/L Carbon Dioxide Level 26 mmol/L Anion Gap 6.0 mmol/L Blood Urea Nitrogen 16 mg/dl Creatinine 1.21 mg/dl Est Creatinine Clear Calc Drug Dose 37.2 ml/min Estimated GFR () 48.6 Estimated GFR (Non- 41.9 BUN/Creatinine Ratio 12.8 Random Glucose 117 mg/dl Calcium Level 6.7 mg/dl Magnesium Level 1.5 mg/dl Total Bilirubin 0.4 mg/dl Direct Bilirubin mg/dl 0.1 mg/dl Aspartate Amino Transf (AST/SGOT) 21 U/L Alanine Aminotransferase (ALT/SGPT) 33 U/L Alkaline Phosphatase 105 U/L Total Protein 5.3 gm/dl Albumin 2.3 gm/dl Chemistry Specimen Hemolysis Bedside Glucose 116 mg/dl Assessment and Plan This patient is an 83yo female here with: 1. Acute/chronic hypoxic respiratory failure/aspiration pneumonia due to new recurrent aspiration pneumonia and COPD exacerbation. Culprit pathogen is pseudomonas. She also appears to have COPD exacerbation. Patient continues to aspirate frequently--patient declines feeding tube which would not significantly decrease her risk of aspiration anyway; she would like to eat for comfort and accept the risk of recurrent aspiration-she tells me she would not like to continue to return to the hospital for treatment for aspiration pneumonia-declines palliative care consultation Still awaiting for her daughter to confirm this daughter wants to be present to fill out the form tomorrow. Received Zosyn 3 days-changed to IV Levaquin on 04/27 to finish out a 7 day course (today day #5)-this will also cover for UTI as below Cont pulmonary toilet and suctioning along with nebs. Continue solumedrol 40mg q12h but eventually will switch to either liquid prednisolone so she can swallow it better, versus crushing the prednisone pills. -Consult pulmonology for further [id number] further recommendations 2. sepsis 2nd to RLL pneumonia (and UTI) -resolved 3. paroxysmal a. fib - diagnosed during previous hospital stay - remains in NSR. -Will restart amiodarone daily if can tolerate -Okay to restart Eliquis is no further GI bleeding and was very minor bleeding 4. dysphagia with aspiration - video swallow performed on 04/26; aspirates thins on the study. During previous hospitalization patient adamantly refused PEG placement with other discussion as above. Although she has tolerated thickened liquids speech is concerned she is at high risk of aspirating such as well. Eating for comfort at this point 5. acute/chronic anemia - s/p 2 units PRBCs and hemoglobin improved to 11.2. Hemoccult stool positive and with gross bleeding rectally on 04/27 which is now resolved -Now with small amount of GI bleeding rectally-not likely to be significant drop in hemoglobin 6. UTI - 2nd to Proteus and Citrobacter both sensitive to Levaquin. Received Zosyn and I will change to Levaquin to complete 7 day course-today day #5 7. LUE swelling - no DVT on doppler. Is this dependent edema from not being able to move that arm? Her daughter reports she had had an infiltrated IV in that arm but I would have expected much better resolution of the edema as the edema has been present for weeks. Would elevate as much as possible. Follow carefully. 8. protein calorie malnutrition, moderate - ongoing issue due to poor p.o. intake 9. COPD with exacerbation - hold prednisone orally, cont solumedrol 40mg q12h. nebs, o2 via trach collar, etc. 10. h/o DVTs in the past - eliquis restarted as above 11. CKD stage 3 -with history of ATN with [facility] last admission with creatinine up to the 6 range. Continues to improve and is with creatinine stable today at 1.21 -Renally dose medications -Avoid nephrotoxins -Follow BMP 12. Hypothyroidism - compensated with most recent TSH wnl; cont synthroid IV and convert back to p.o. on discharge 13. T2DM - controlled but holding lantus due to NPO status and borderline low sugars at times. 14. chronic diastolic CHF - compensated. 15. right-sided elevated Hemidiaphragm - S/P Plication in the past. Contributes to her hypoventilation 16. depression -restart Celexa as tolerated 17. HTN - BPs are low or low-normal; holding home meds 18. RLS -restart Requip 19. hypokalemia/hypocalcemia/hypomagnesemia-due to poor p.o. intake -Follow BMP and replace with IV as needed 20. Acute metabolic encephalopathy - 2nd to UTI, pneumonia, etc -resolved 21. Rectal bleeding-likely secondary to internal hemorrhoids in the setting of taking Eliquis-resolved -Okay to restart Eliquis -Appreciate GI consultation-no plans for endoscopy at this time given ongoing infections and multiple comorbidities and risk of anesthesia 22. History of constipation-is moving bowels regularly at this time -Hold off on home Linzess, hold senna/docusate Delores extensively updated once again today on the phone twice Disposition-remain on telemetry, will eventually need SNF placement-PT/OT evaluations pending Remains full code however patient would like to change her status when her daughter can be here and agree with her decision-planning for doing this tomorrow along with completing a POLST form with her wishes as stated above Patient continues to decline palliative care consultation
[2018-04-28] MEDS: METHYLPREDNISOLONE 40 MG in SYRINGE 0 ML IV SCH ×2 (12:52→20:13)
[2018-04-28] MEDS: D5W AND NSS 1,000 ML IV SCH (12:53)
--- NOTE | 2018-04-28 18:18 | Pulmonology Progress Note ---
Pulmonary Progress Note Date of Service Apr 28, 2018. Attending Dr. Oleary Subjective The patient did not have any events overnight, she is tolerating [place] valve, she denies any pain, no shortness of breath, no abdominal pain, no change in her bowel movements, the tracheostomy tube has been well maintained. Minimal secretions noted. Objective Physical exam on 04/28/2018 showed stable vital signs, no fever, no stridor, will maintain the tracheostomy tube site, S1-S2 regular rate and rhythm, distant breath sounds bilaterally, abdomen is soft but slightly distended, bowel sounds are positive, minimal edema. Her labs also were reviewed which showed no leukocytosis, chest x-ray showed mild pulmonary vascular congestion. Assessment & Plan 1. Acute on chronic hypercapnic and hypoxic respiratory failure. 2. COPD, gold level 3. 3. Diaphragm dysfunction with diaphragm plication. 4. Morbid obesity with obstructive sleep apnea status post tracheostomy tube in place. 5. Steroid dependence. With steroid-induced myopathy. 6. Adrenal suppression on prednisone 20 mg at the halfway and now on Solu- Medrol 40 mg IV every 12. 7. Diastolic heart failure. 8. Chronic kidney disease. 9. 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 10. Recurrent aspiration. Plan: 1. The patient has been having recurrent aspiration, treated with multiple courses of antibiotics and currently on Levaquin. 2. Continue bronchodilators. 3. [place] valve as needed. Watch for mucoid impaction. 4. If the patient will tolerate swallowing her medications, she can be changed to 40 mg prednisone p.o. daily. 5. If she cannot tolerate taking Ensure for nutritional support. 6. Goals of care has been addressed with the family, appreciate Dr. Lockwood input. 7. The patient is deconditioned overall. Thank you Data Medications: Current Inpatient Medications Medications (Trade) Dose Ordered Sig/Natasha Route Start Time Stop Time Status Last Admin Dose Admin Albuterol (Ventolin Hfa Inhaler) 2 puffs Q6H INH 04/24/18 22:00 05/24/18 21:59 Future Hold Amiodarone HCl (Cordarone Tab) 200 mg DAILY PO 04/25/18 09:00 05/25/18 08:59 Future Hold 04/26/18 08:44 200 MG Apixaban (Eliquis Tab) 2.5 mg BID PO 04/24/18 21:00 05/24/18 20:59 Future Hold 04/26/18 20:24 2.5 MG Atorvastatin Calcium (Lipitor Tab) 10 mg DAILY PO 04/25/18 09:00 05/25/18 08:59 Future Hold 04/26/18 08:44 10 MG Bisacodyl (Dulcolax Supp) 10 mg DAILY PRN VA 04/24/18 13:45 05/24/18 13:44 Calcitriol (Rocaltrol Cap) 0.25 mcg DAILY PO 04/25/18 09:00 05/25/18 08:59 Future Hold 04/26/18 08:45 0.25 MCG Cholecalciferol (Vitamin D Tab) 1,000 inter.unit DAILY PO 04/25/18 09:00 05/25/18 08:59 Future Hold 04/26/18 08:45 1,000 INTER.UNIT Citalopram Hydrobromide (celeXA TAB) 30 mg DAILY PO 04/25/18 09:00 05/25/18 08:59 Future Hold 04/26/18 08:44 30 MG Gabapentin (Neurontin Cap) 200 mg QAM PO 04/25/18 09:00 05/25/18 08:59 Future Hold 04/26/18 08:45 200 MG Gabapentin (Neurontin Cap) 300 mg HS PO 04/24/18 21:00 05/24/18 20:59 Future Hold 04/26/18 20:24 300 MG Albuterol/ Ipratropium (Duoneb) 3 ml QIDR INH 04/24/18 16:00 05/24/18 15:59 04/28/18 15:25 3 ML Levothyroxine Sodium (Synthroid Tab) 100 mcg DAILYBB PO 04/25/18 06:00 05/25/18 05:59 Future Hold 04/25/18 05:09 100 MCG Midodrine (Proamatine Tab) 2.5 mg TID@,,17 PRN PO 04/24/18 13:45 05/24/18 13:44 Future Hold Multivitamins Therapeutic (Cerovite Liquid) 15 ml QAM PO 04/25/18 09:00 05/25/18 08:59 04/28/18 08:51 15 ML Polyethylene (Miralax Powder Packet) 17 gm DAILY PRN PO 04/24/18 13:45 05/24/18 13:44 Prednisone (PredniSONE TAB) 20 mg QAM PO 04/25/18 09:00 05/25/18 08:59 Future Hold 04/25/18 08:37 20 MG Ropinirole HCl (Requip Tab) 0.5 mg HS PO 04/24/18 21:00 05/24/18 20:59 Future Hold 04/26/18 20:23 0.5 MG Senna/Docusate Sodium (Senokot S Tab) 1 tab BID PO 04/24/18 21:00 05/24/18 20:59 Future Hold 04/26/18 20:25 1 TAB Sucralfate (Carafate Susp) 1 gm QID PO 04/24/18 17:00 05/24/18 16:59 Future Hold 04/27/18 08:56 1 GM Tramadol HCl (Ultram Tab) 50 mg TID PRN PO 04/24/18 13:45 05/24/18 13:44 Future Hold 04/27/18 08:53 50 MG Miscellaneous Information (Order Awaiting Action) 1 ea QS N/A 04/24/18 16:00 05/24/18 15:59 Acetaminophen (Tylenol Tab) 650 mg Q4H PRN PO 04/24/18 13:45 05/24/18 13:44 Ondansetron HCl (Zofran Inj) 4 mg Q6H PRN IV 04/24/18 13:45 05/24/18 13:44 Glucose (Glucose 40% Gel) 15-30 GRAMS 15 GRAMS... UD PRN PO 04/24/18 16:00 05/24/18 15:59 Glucose (Glucose Chew Tab) 4-8 Tablets 4 Tabl... UD PRN PO 04/24/18 16:00 05/24/18 15:59 Dextrose (Dextrose 50% 50ML Syringe) 25-50ML 25ML FOR ... UD PRN IV 04/24/18 16:00 05/24/18 15:59 04/25/18 16:25 25 ML Glucagon (Glucagon Inj) 1 mg UD PRN IM 04/24/18 16:00 05/24/18 15:59 Carbohydrates (Carbohydrates For Hypoglycemia) 15-30 GRAMS 15 grams if BSG 54-69... UD PRN PO 04/24/18 16:00 05/24/18 15:59 Insulin Glargine (Lantus Solostar Pen) 6 units BID SQ 04/24/18 21:00 05/24/18 20:59 Future Hold 04/25/18 20:38 6 UNITS Heparin Sodium (Porcine) (Heparin 10 Unit/ ml 5 ml Flush) 5 ml PRN PRN FLUSH 04/24/18 23:00 05/24/18 22:59 Magnesium Oxide (Mag-Ox Tab) 400 mg BID PO 04/25/18 09:00 05/25/18 08:59 Future Hold 04/26/18 20:23 400 MG Levofloxacin 750 mg/Prmx 150 ml @ 100 mls/hr Q48H IV 04/27/18 09:00 05/04/18 08:59 04/27/18 08:53 100 MLS/HR Levofloxacin (Consult) 1 ea UD PRN N/A 04/27/18 08:30 05/27/18 08:29 Levothyroxine Sodium 50 mcg/ Syringe 2.5 ml @ 1.25 mls/ min DAILY@09 IV 04/27/18 10:30 05/27/18 10:29 04/28/18 08:50 1.25 MLS/MIN Dextrose/Sodium Chloride 1,000 ml @ 50 mls/hr Q20H IV 04/27/18 09:15 05/27/18 09:14 04/28/18 12:53 50 MLS/HR Hydromorphone HCl (Dilaudid Inj) 0.25 mg Q1H PRN IV 04/27/18 09:15 05/11/18 09:14 04/28/18 09:04 0.25 MG Pantoprazole Sodium 40 mg/ Syringe 10 ml @ 5 mls/min DAILY@, IV 04/27/18 21:00 05/27/18 20:59 04/28/18 08:51 5 MLS/MIN Methylprednisolone Sodium Succinate 40 mg/Syringe 0.64 ml @ 1.5 mls/min Q12 IV 04/28/18 11:45 05/28/18 11:44 04/28/18 12:52 1.5 MLS/MIN Insulin Aspart (novoLOG ASPART) ACHS SC 04/28/18 21:00 05/27/18 00:00 I & O: 24-Hour Column 04/29/18 08:00 Intake Total 673 ml Output Total 475 ml Balance 198 ml Vital Signs: Date Time Temp Pulse Resp B/P (MAP) Pulse Ox O2 Delivery O2 Flow Rate FiO2 04/28/18 15:46 37.3 91 20 182/84 (116) 99 Trach Collar 04/28/18 15:25 68 16 100 Trach Collar 30 04/28/18 11:29 37.2 71 18 153/68 (96) 98 Trach Collar 6.0 30 04/28/18 11:24 68 16 100 Trach Collar 30 04/28/18 08:23 95 Trach Collar 30 04/28/18 08:00 37.4 76 20 130/78 (95) 98 Trach Collar 8.0 30 04/28/18 07:41 78 15 100 Trach Collar 30 04/28/18 03:16 37.8 68 17 100 Trach Collar 04/27/18 23:59 97 Trach Collar 8.0 30 04/27/18 23:24 36.8 74 19 97 Trach Collar 04/27/18 20:15 36.8 66 18 146/65 (92) 100 Trach Collar 04/27/18 20:00 98 Trach Collar 30 Laboratory Results: Last 24 Hours Test 04/28/18 00:07 04/28/18 04:20 04/28/18 05:24 04/28/18 06:08 Bedside Glucose 162 mg/dl 116 mg/dl White Blood Count 4.53 K/uL Red Blood Count 3.54 M/uL Hemoglobin 10.4 g/dL Hematocrit 32.4 % Mean Corpuscular Volume 91.5 fL Mean Corpuscular Hemoglobin 29.4 pg Mean Corpuscular Hemoglobin Concent 32.1 g/dl Platelet Count 182 K/uL Mean Platelet Volume 10.2 fL Neutrophils (%) (Auto) 70.2 % Lymphocytes (%) (Auto) 13.9 % Monocytes (%) (Auto) 12.4 % Eosinophils (%) (Auto) 0.0 % Basophils (%) (Auto) 0.0 % Neutrophils # (Auto) 3.18 K/uL Lymphocytes # (Auto) 0.63 K/uL Monocytes # (Auto) 0.56 K/uL Eosinophils # (Auto) 0.00 K/uL Basophils # (Auto) 0.00 K/uL RDW Standard Deviation 55.2 fL RDW Coefficient of Variation 16.5 % Immature Granulocyte % (Auto) 3.5 % Immature Granulocyte # (Auto) 0.16 K/uL Sodium Level 141 mmol/L Potassium Level 3.2 mmol/L Chloride Level 109 mmol/L Carbon Dioxide Level 26 mmol/L Anion Gap 6.0 mmol/L Blood Urea Nitrogen 16 mg/dl Creatinine 1.21 mg/dl Est Creatinine Clear Calc Drug Dose 37.2 ml/min Estimated GFR () 48.6 Estimated GFR (Non- 41.9 BUN/Creatinine Ratio 12.8 Random Glucose 117 mg/dl Calcium Level 6.7 mg/dl Magnesium Level 1.5 mg/dl Total Bilirubin 0.4 mg/dl Direct Bilirubin mg/dl 0.1 mg/dl Aspartate Amino Transf (AST/SGOT) 21 U/L Alanine Aminotransferase (ALT/SGPT) 33 U/L Alkaline Phosphatase 105 U/L Total Protein 5.3 gm/dl Albumin 2.3 gm/dl Chemistry Specimen Hemolysis Test 04/28/18 11:44 04/28/18 17:51 Bedside Glucose 94 mg/dl 172 mg/dl
[2018-04-28] MEDS: SODIUM CHLOR 0.45% + 20MEQ KCL 1,000 ML IV SCH (19:53)
[2018-04-28] MEDS: APIXABAN 2.5 MG TAB PO SCH (19:57)
[2018-04-28] MEDS: ROPINIROLE HCL 0.25 MG TAB PO SCH (19:57)
[2018-04-28] MEDS: GABAPENTIN 300 MG CAP PO SCH (19:57)
[2018-04-29] VITALS (12 sets, daily range): BP systolic 125–184; BP diastolic 42–94; PULSE 73–106; TEMP 36.8–37.1; O2SAT 92–97
[2018-04-29 04:20] LABS: BASO % 0.2 %; BASO ABS # 0.01 K/uL (0-0.2); HEMATOCRIT 33.6 % (37-47); HEMOGLOBIN 10.9 g/dL (12.0-16.0); IG# 0.18 K/uL (0.00-0.02); LYMPH % 13.7 %; LYMPH ABS # 0.62 K/uL (1.2-3.4); MEAN CELL VOLUME 92.1 fL (80-100); MEAN CORPUSCULAR HEMOGLOBIN 29.9 pg (25-34); MEAN CORPUSCULAR HGB CONC 32.4 g/dl (32-36); MEAN PLATELET VOLUME 9.8 fL (7.4-10.4); MONO % 4.8 %; MONO ABS # 0.22 K/uL (0.11-0.59); NEUT % 77.3 %; NEUT ABS # 3.51 K/uL (1.4-6.5); PLATELET COUNT 161 K/uL (130-400); RED CELL DISTRIBUTION WIDTH CV 16.1 % (11.5-14.5); WHITE BLOOD COUNT 4.54 K/uL (4.8-10.8)
[2018-04-29 04:37] LABS: CALCIUM 7.1 mg/dl (8.5-10.1); CREATININE 1.25 mg/dl (0.60-1.20); POTASSIUM 3.6 mmol/L (3.5-5.1)
[2018-04-29] MEDS: ALBUT/IPRATROP 3MG/0.5MG NEB 3 ML VIAL INH SCH ×4 (06:53→19:00)
[2018-04-29] MEDS: LEVOTHYROXINE SODIUM INJ 50 MCG in SYRINGE 0 ML IV SCH (08:08)
[2018-04-29] MEDS: METHYLPREDNISOLONE 40 MG in SYRINGE 0 ML IV SCH (08:08)
[2018-04-29] MEDS: LEVOFLOXACIN / D5W 750 MG in PREMIXED IN D5W 150 ML IV SCH (08:09)
[2018-04-29] MEDS: PANTOprazole INJ 40 MG in SYRINGE 0 ML IV SCH (08:09)
[2018-04-29] MEDS ORDERED: MAGNESIUM SULFATE 1GM / D5W 100 ML IV STA (08:09)
[2018-04-29] MEDS ORDERED: POTASSIUM CHLR 20 MEQ / WTR 20 MEQ IV STA (08:10)
[2018-04-29] MEDS: INSULIN ASPART 100 UNITS/ML 3 ML PEN SC SCH ×4 (08:16→20:53)
[2018-04-29] MEDS: MULTIVITAMINS W/MINERALS 15ML UDP PO SCH (09:40)
[2018-04-29] MEDS: AMIODARONE 200 MG TAB PO SCH (09:40)
[2018-04-29] MEDS: CITALOPRAM 20 MG TAB PO SCH (09:41)
[2018-04-29] MEDS: APIXABAN 2.5 MG TAB PO SCH ×2 (09:42→21:41)
[2018-04-29] MEDS: ATORVASTATIN 10 MG TAB PO SCH (09:43)
--- NOTE | 2018-04-29 10:06 | Hospitalist Progress Note ---
Hospitalist Progress Note Date of Service Apr 29, 2018. Subjective Pt evaluation today including: conversation w/ patient, conversation w/ family , physical exam, chart review, lab review Voiding: christian catheter in place Patient doing fairly well today, has some occasional shortness of breath. She is tolerating some food today and is able to take her pills orally. I had approximately a 45 minute discussion with the patient and her daughter at the bedside about her goals of care and we filled out a POLST form together. Patient denies abdominal pain. She is moving her bowels regularly. No other concerns at this time. She did get out of bed to the chair yesterday and today. Telemetry with normal sinus rhythm, PACs, rates in the 80s-90s All Other Systems: Reviewed and Negative Objective Vital Signs Date Time Temp Pulse Resp B/P (MAP) Pulse Ox O2 Delivery O2 Flow Rate FiO2 04/29/18 08:06 97 Trach Collar 30 04/29/18 06:57 37.1 91 25 125/92 (103) 97 Trach Collar 6.0 04/29/18 06:53 88 16 97 Trach Collar 28 04/29/18 03:46 150/94 (112) 04/29/18 03:43 36.8 88 25 149/42 (77) 97 Trach Collar 6.0 04/29/18 00:11 37.1 84 21 133/92 (106) 93 Trach Collar 6.0 04/28/18 20:00 98 Trach Collar 30 04/28/18 19:16 37.1 84 18 163/72 (102) 92 Trach Collar 6.0 04/28/18 19:09 79 20 95 Trach Collar 28 04/28/18 15:46 37.3 91 20 182/84 (116) 99 Trach Collar 04/28/18 15:25 68 16 100 Trach Collar 30 04/28/18 11:29 37.2 71 18 153/68 (96) 98 Trach Collar 6.0 30 04/28/18 11:24 68 16 100 Trach Collar 30 Physical Exam General Appearance: WD/WN, no apparent distress Eyes: normal inspection (With some watery discharge), sclerae normal ENT: hearing grossly normal, pharynx normal Neck: trachea midline (With tracheostomy in place) Respiratory/Chest: no respiratory distress, no accessory muscle use, + decreased breath sounds (At the bases bilaterally but otherwise fairly clear) Cardiovascular: regular rate, rhythm, no edema, no murmur Abdomen: normal bowel sounds, non tender, soft Extremities: no calf tenderness Neurologic/Psychiatric: alert, normal mood/affect, oriented x 3 Skin: normal color, warm/dry, no rash, + pertinent finding (PICC line in place and the RUE without surrounding erythema) Laboratory Results Last 24 Hours Test 04/28/18 11:44 04/28/18 17:51 04/28/18 20:21 04/29/18 04:14 Bedside Glucose 94 mg/dl 172 mg/dl 179 mg/dl White Blood Count 4.54 K/uL Red Blood Count 3.65 M/uL Hemoglobin 10.9 g/dL Hematocrit 33.6 % Mean Corpuscular Volume 92.1 fL Mean Corpuscular Hemoglobin 29.9 pg Mean Corpuscular Hemoglobin Concent 32.4 g/dl Platelet Count 161 K/uL Mean Platelet Volume 9.8 fL Neutrophils (%) (Auto) 77.3 % Lymphocytes (%) (Auto) 13.7 % Monocytes (%) (Auto) 4.8 % Eosinophils (%) (Auto) 0.0 % Basophils (%) (Auto) 0.2 % Neutrophils # (Auto) 3.51 K/uL Lymphocytes # (Auto) 0.62 K/uL Monocytes # (Auto) 0.22 K/uL Eosinophils # (Auto) 0.00 K/uL Basophils # (Auto) 0.01 K/uL RDW Standard Deviation 54.0 fL RDW Coefficient of Variation 16.1 % Immature Granulocyte % (Auto) 4.0 % Immature Granulocyte # (Auto) 0.18 K/uL Sodium Level 142 mmol/L Potassium Level 3.6 mmol/L Chloride Level 108 mmol/L Carbon Dioxide Level 27 mmol/L Anion Gap 7.0 mmol/L Blood Urea Nitrogen 11 mg/dl Creatinine 1.25 mg/dl Est Creatinine Clear Calc Drug Dose 35.7 ml/min Estimated GFR () 46.7 Estimated GFR (Non- 40.3 BUN/Creatinine Ratio 8.8 Random Glucose 165 mg/dl Calcium Level 7.1 mg/dl Magnesium Level 1.8 mg/dl Test 04/29/18 07:20 Bedside Glucose 130 mg/dl Assessment and Plan This patient is an 83yo female here with: 1. Acute/chronic hypoxic respiratory failure/aspiration pneumonia due to new recurrent aspiration pneumonia and COPD exacerbation. Culprit pathogen is pseudomonas. Also with COPD exacerbation which is now resolved. Patient continues to aspirate frequently--patient declines feeding tube which would not significantly decrease her risk of aspiration anyway; she would like to eat for comfort and accept the risk of recurrent aspiration-she tells me she would not like to continue to return to the hospital for treatment for aspiration pneumonia-declines palliative care consultation POLST form filled out today stating she does not want to return to the hospital and would like to go to comfort measures only if she gets ill again in the future after discharge, limited trial of IV fluids, no artificial nutrition, and limited trial of oral antibiotics if would provide comfort or prolong her life, and changed to DNR/DNI Received Zosyn 3 days-changed to IV Levaquin on 04/27 to finish out a 10 day course (today day #6)-this will also cover for UTI as below Cont pulmonary toilet and suctioning along with nebs. DC IV Solu-Medrol and change back to prednisone 20 mg daily -Consult pulmonology for further [id number] further recommendations 2. sepsis 2nd to RLL pneumonia (and UTI) -resolved 3. paroxysmal a. fib - diagnosed during previous hospital stay - remains in NSR. -Will restart amiodarone daily if can tolerate -Restarted Eliquis as no further GI bleeding and was very minor bleeding 4. dysphagia with aspiration - video swallow performed on 04/26; aspirates thins on the study. During previous hospitalization patient adamantly refused PEG placement with other discussion as above. Although she has tolerated thickened liquids speech is concerned she is at high risk of aspirating such as well. Eating for comfort at this point, accepting the risk of recurrent aspiration 5. acute/chronic anemia - s/p 2 units PRBCs and hemoglobin improved to 11.2, fairly stable today at 10.9. Hemoccult stool positive and with gross bleeding rectally on 04/27 which is now resolved -No further GI bleeding rectally-not likely to be significant drop in hemoglobin 6. UTI - 2nd to Proteus and Citrobacter both sensitive to Levaquin. Received Zosyn and then changed to Levaquin to complete 7 day course-today day # 6 7. LUE swelling - no DVT on doppler. Much improved today -Continue to elevate as much as possible. 8. protein calorie malnutrition, moderate - ongoing issue due to poor p.o. intake 9. COPD with exacerbation -change back to prednisone 20 mg daily as above, continue nebs, o2 via trach collar, etc. 10. h/o DVTs in the past - eliquis continues 11. CKD stage 3 -with history of ATN with [facility] last admission with creatinine up to the 6 range. Continues to improve and is with creatinine stable today at 1.25 -Renally dose medications -Avoid nephrotoxins -Follow BMP 12. Hypothyroidism - compensated with most recent TSH wnl; cont synthroid but change back to p.o. 13. T2DM - controlled but holding lantus due to NPO status and borderline low sugars at times. 14. chronic diastolic CHF - compensated. 15. right-sided elevated Hemidiaphragm - S/P Plication in the past. Contributes to her hypoventilation 16. depression -continue Celexa 17. HTN - BPs are low or low-normal; holding home meds Continue midodrine as needed for orthostasis or low blood pressures 18. RLS -continue Requip and gabapentin 19. hypokalemia/hypocalcemia/hypomagnesemia-due to poor p.o. intake, improved today -Follow BMP and replace with IV as needed 20. Acute metabolic encephalopathy - 2nd to UTI, pneumonia, etc -resolved 21. Rectal bleeding-likely secondary to internal hemorrhoids in the setting of taking Eliquis-resolved -Okay to restart Eliquis -Appreciate GI consultation-no plans for endoscopy at this time given ongoing infections and multiple comorbidities and risk of anesthesia 22. History of constipation-is moving bowels regularly at this time -Hold off on home Linzess, hold senna/docusate Disposition-remain on telemetry as per patient and daughter's wishes, stable for discharge to SNF-patient wishes to attempt rehab and transition to hospice care if has recurrent aspiration or deterioration of her condition Changed to DNR/DNI today POLST form completed and placed on the chart with wishes as above
[2018-04-29] MEDS: HYDROmorphone INJ 0.5 MG/0.5 ML SYR IV PRN ×2 (11:01→20:47)
--- NOTE | 2018-04-29 16:52 | Pulmonology Progress Note ---
Pulmonary Progress Note Date of Service Apr 29, 2018. Attending Dr. Oleary Subjective No events overnight, the patient remains comfortable on the [place] valve, no increased secretions. No fever reported. Objective Physical exam on 04/28/2018 showed stable vital signs, no fever, no stridor, will maintain the tracheostomy tube site, S1-S2 regular rate and rhythm, distant breath sounds bilaterally, abdomen is soft but slightly distended, bowel sounds are positive, minimal edema. Her labs also were reviewed which showed no leukocytosis, chest x-ray showed mild pulmonary vascular congestion. Physical exam on 04/29/2018 showed vital signs were stable, afebrile, tracheostomy site appears well-maintained, S1-S2 regular rate and rhythm, not in A. fib to my exam, lungs with rhonchi bilaterally, abdomen is obese but benign, trace edema, overall she is deconditioned. Labs were reviewed personally. Assessment & Plan 1. Acute on chronic hypercapnic and hypoxic respiratory failure. 2. COPD, gold level 3. 3. Diaphragm dysfunction with diaphragm plication. 4. Morbid obesity with obstructive sleep apnea status post tracheostomy tube in place. 5. Steroid dependence. With steroid-induced myopathy. 6. Adrenal suppression on prednisone 20 mg at the long term and now on Solu- Medrol 40 mg IV every 12. 7. Diastolic heart failure. 8. Chronic kidney disease. 9. 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 10. Recurrent aspiration. Plan: 1. The patient has been having recurrent aspiration, treated with multiple courses of antibiotics and currently on Levaquin. 2. Continue bronchodilators. 3. Passy-Liz[place] valve as needed. Watch for mucoid impaction. 4. start prednisone 40 mg p.o. daily. 5. Discontinue Solu-Medrol. 6. Goals of care has been addressed with the family, appreciate Dr. Lockwood input. 7. The patient is deconditioned overall. Disposition plan hopefully to rehab. Thank you Data Medications: Current Inpatient Medications Medications (Trade) Dose Ordered Sig/Natasha Route Start Time Stop Time Status Last Admin Dose Admin Albuterol (Ventolin Hfa Inhaler) 2 puffs Q6H INH 04/24/18 22:00 05/24/18 21:59 Future Hold Amiodarone HCl (Cordarone Tab) 200 mg DAILY PO 04/25/18 09:00 05/25/18 08:59 Future hold 04/29/18 09:40 200 MG Apixaban (Eliquis Tab) 2.5 mg BID PO 04/24/18 21:00 05/24/18 20:59 Future hold 04/29/18 09:42 2.5 MG Atorvastatin Calcium (Lipitor Tab) 10 mg DAILY PO 04/25/18 09:00 05/25/18 08:59 Future hold 04/29/18 09:43 10 MG Bisacodyl (Dulcolax Supp) 10 mg DAILY PRN MI 04/24/18 13:45 05/24/18 13:44 Calcitriol (Rocaltrol Cap) 0.25 mcg DAILY PO 04/25/18 09:00 05/25/18 08:59 Future hold 04/26/18 08:45 0.25 MCG Cholecalciferol (Vitamin D Tab) 1,000 inter.unit DAILY PO 04/25/18 09:00 05/25/18 08:59 Future hold 04/26/18 08:45 1,000 INTER.UNIT Citalopram Hydrobromide (celeXA TAB) 30 mg DAILY PO 04/25/18 09:00 05/25/18 08:59 Future hold 04/29/18 09:41 30 MG Gabapentin (Neurontin Cap) 200 mg QAM PO 04/25/18 09:00 05/25/18 08:59 Future Hold 04/26/18 08:45 200 MG Gabapentin (Neurontin Cap) 300 mg HS PO 04/24/18 21:00 05/24/18 20:59 Future hold 04/26/18 20:24 300 MG Albuterol/ Ipratropium (Duoneb) 3 ml QIDR INH 04/24/18 16:00 05/24/18 15:59 04/29/18 15:10 3 ML Levothyroxine Sodium (Synthroid Tab) 100 mcg DAILYBB PO 04/25/18 06:00 05/25/18 05:59 Future hold 04/25/18 05:09 100 MCG Midodrine (Proamatine Tab) 2.5 mg TID@08,12,17 PRN PO 04/24/18 13:45 05/24/18 13:44 Future hold Multivitamins Therapeutic (Cerovite Liquid) 15 ml QAM PO 04/25/18 09:00 05/25/18 08:59 04/29/18 09:40 15 ML Polyethylene (Miralax Powder Packet) 17 gm DAILY PRN PO 04/24/18 13:45 05/24/18 13:44 Prednisone (PredniSONE TAB) 20 mg QAM PO 04/25/18 09:00 05/25/18 08:59 Future hold 04/25/18 08:37 20 MG Ropinirole HCl (Requip Tab) 0.5 mg HS PO 04/24/18 21:00 05/24/18 20:59 Future hold 04/26/18 20:23 0.5 MG Senna/Docusate Sodium (Senokot S Tab) 1 tab BID PO 04/24/18 21:00 05/24/18 20:59 Future hold 04/26/18 20:25 1 TAB Sucralfate (Carafate Susp) 1 gm QID PO 04/24/18 17:00 05/24/18 16:59 Future Hold 04/27/18 08:56 1 GM Tramadol HCl (Ultram Tab) 50 mg TID PRN PO 04/24/18 13:45 05/24/18 13:44 Future Hold 04/27/18 08:53 50 MG Miscellaneous Information (Order Awaiting Action) 1 ea QS N/A 04/24/18 16:00 05/24/18 15:59 Acetaminophen (Tylenol Tab) 650 mg Q4H PRN PO 04/24/18 13:45 05/24/18 13:44 Ondansetron HCl (Zofran Inj) 4 mg Q6H PRN IV 04/24/18 13:45 05/24/18 13:44 Glucose (Glucose 40% Gel) 15-30 GRAMS 15 GRAMS... UD PRN PO 04/24/18 16:00 05/24/18 15:59 Glucose (Glucose Chew Tab) 4-8 Tablets 4 Tabl... UD PRN PO 04/24/18 16:00 05/24/18 15:59 Dextrose (Dextrose 50% 50ML Syringe) 25-50ML 25ML FOR ... UD PRN IV 04/24/18 16:00 05/24/18 15:59 04/25/18 16:25 25 ML Glucagon (Glucagon Inj) 1 mg UD PRN IM 04/24/18 16:00 05/24/18 15:59 Carbohydrates (Carbohydrates For Hypoglycemia) 15-30 GRAMS 15 grams if BSG 54-69... UD PRN PO 04/24/18 16:00 05/24/18 15:59 Insulin Glargine (Lantus Solostar Pen) 6 units BID SQ 04/24/18 21:00 05/24/18 20:59 Future Hold 04/25/18 20:38 6 UNITS Heparin Sodium (Porcine) (Heparin 10 Unit/ ml 5 ml Flush) 5 ml PRN PRN FLUSH 04/24/18 23:00 05/24/18 22:59 Magnesium Oxide (Mag-Ox Tab) 400 mg BID PO 04/25/18 09:00 05/25/18 08:59 Future hold 04/26/18 20:23 400 MG Levofloxacin 750 mg/Prmx 150 ml @ 100 mls/hr Q48H IV 04/27/18 09:00 05/04/18 08:59 04/29/18 08:09 100 MLS/HR Levofloxacin (Consult) 1 ea UD PRN N/A 04/27/18 08:30 05/27/18 08:29 Hydromorphone HCl (Dilaudid Inj) 0.25 mg Q1H PRN IV 04/27/18 09:15 05/11/18 09:14 04/29/18 11:01 0.25 MG Methylprednisolone Sodium Succinate 40 mg/Syringe 0.64 ml @ 1.5 mls/min Q12 IV 04/28/18 11:45 04/29/18 23:59 04/29/18 08:08 1.5 MLS/MIN Insulin Aspart (novoLOG ASPART) ACHS SC 04/28/18 21:00 05/27/18 00:00 04/29/18 12:28 2 UNITS Potassium Chloride/Sodium Chloride 1,000 ml @ 50 mls/hr Q20H IV 04/28/18 19:00 05/28/18 18:59 04/28/18 19:53 50 MLS/HR Pantoprazole Sodium (Protonix Tab) 40 mg QAM PO 04/30/18 09:00 05/30/18 08:59 I & O: 24-Hour Column 04/30/18 08:00 Intake Total 733 ml Output Total 1225 ml Balance -492 ml Vital Signs: Date Time Temp Pulse Resp B/P (MAP) Pulse Ox O2 Delivery O2 Flow Rate FiO2 04/29/18 15:10 82 16 96 Trach Collar 28 04/29/18 15:00 37.0 80 18 154/89 (110) 94 Trach Collar 04/29/18 11:15 106 16 93 Trach Collar 28 04/29/18 08:06 97 Trach Collar 30 04/29/18 06:57 37.1 91 25 125/92 (103) 97 Trach Collar 6.0 04/29/18 06:53 88 16 97 Trach Collar 28 04/29/18 03:46 150/94 (112) 04/29/18 03:43 36.8 88 25 149/42 (77) 97 Trach Collar 6.0 04/29/18 00:11 37.1 84 21 133/92 (106) 93 Trach Collar 6.0 04/28/18 20:00 98 Trach Collar 30 04/28/18 19:16 37.1 84 18 163/72 (102) 92 Trach Collar 6.0 04/28/18 19:09 79 20 95 Trach Collar 28 Laboratory Results: Last 24 Hours Test 04/28/18 17:51 04/28/18 20:21 04/29/18 04:14 04/29/18 07:20 Bedside Glucose 172 mg/dl 179 mg/dl 130 mg/dl White Blood Count 4.54 K/uL Red Blood Count 3.65 M/uL Hemoglobin 10.9 g/dL Hematocrit 33.6 % Mean Corpuscular Volume 92.1 fL Mean Corpuscular Hemoglobin 29.9 pg Mean Corpuscular Hemoglobin Concent 32.4 g/dl Platelet Count 161 K/uL Mean Platelet Volume 9.8 fL Neutrophils (%) (Auto) 77.3 % Lymphocytes (%) (Auto) 13.7 % Monocytes (%) (Auto) 4.8 % Eosinophils (%) (Auto) 0.0 % Basophils (%) (Auto) 0.2 % Neutrophils # (Auto) 3.51 K/uL Lymphocytes # (Auto) 0.62 K/uL Monocytes # (Auto) 0.22 K/uL Eosinophils # (Auto) 0.00 K/uL Basophils # (Auto) 0.01 K/uL RDW Standard Deviation 54.0 fL RDW Coefficient of Variation 16.1 % Immature Granulocyte % (Auto) 4.0 % Immature Granulocyte # (Auto) 0.18 K/uL Sodium Level 142 mmol/L Potassium Level 3.6 mmol/L Chloride Level 108 mmol/L Carbon Dioxide Level 27 mmol/L Anion Gap 7.0 mmol/L Blood Urea Nitrogen 11 mg/dl Creatinine 1.25 mg/dl Est Creatinine Clear Calc Drug Dose 35.7 ml/min Estimated GFR () 46.7 Estimated GFR (Non- 40.3 BUN/Creatinine Ratio 8.8 Random Glucose 165 mg/dl Calcium Level 7.1 mg/dl Magnesium Level 1.8 mg/dl Test 04/29/18 11:10 04/29/18 16:20 Bedside Glucose 149 mg/dl 118 mg/dl
[2018-04-29] MEDS: SODIUM CHLOR 0.45% + 20MEQ KCL 1,000 ML IV SCH (17:08)
[2018-04-29] MEDS: ONDANSETRON INJ 2 MG/ML 2 ML VIAL IV PRN (20:50)
[2018-04-29] MEDS: GABAPENTIN 300 MG CAP PO SCH (21:40)
[2018-04-29] MEDS: MAGNESIUM OXIDE 400 MG TAB PO SCH (21:41)
[2018-04-29] MEDS: DOCUSATE SODIUM/SENNA 50/8.6MG TAB PO SCH (21:41)
[2018-04-29] MEDS: ROPINIROLE HCL 0.25 MG TAB PO SCH (21:41)
[2018-04-30] VITALS (15 sets, daily range): BP systolic 73–171; BP diastolic 38–88; PULSE 60–86; TEMP 36.7–37.1; O2SAT 91–95
[2018-04-30] MEDS: HYDROmorphone INJ 0.5 MG/0.5 ML SYR IV PRN ×3 (04:43→19:31)
[2018-04-30 04:49] LABS: BASO % 0.2 %; BASO ABS # 0.01 K/uL (0-0.2); EOS % 0.2 %; EOS ABS # 0.01 K/uL (0-0.5); HEMOGLOBIN 10.7 g/dL (12.0-16.0); IG# 0.19 K/uL (0.00-0.02); LYMPH % 18.5 %; LYMPH ABS # 0.76 K/uL (1.2-3.4); MEAN CELL VOLUME 92.2 fL (80-100); MEAN CORPUSCULAR HEMOGLOBIN 29.9 pg (25-34); MEAN CORPUSCULAR HGB CONC 32.4 g/dl (32-36); MONO % 11.7 %; MONO ABS # 0.48 K/uL (0.11-0.59); NEUT % 64.8 %; NEUT ABS # 2.66 K/uL (1.4-6.5); PLATELET COUNT 141 K/uL (130-400); RED CELL DISTRIBUTION WIDTH CV 16.1 % (11.5-14.5); RED CELL DISTRIBUTION WIDTH SD 54.8 fL (36.4-46.3); WHITE BLOOD COUNT 4.11 K/uL (4.8-10.8)
[2018-04-30 05:05] LABS: CALCIUM 6.9 mg/dl (8.5-10.1); CREATININE 1.19 mg/dl (0.60-1.20); POTASSIUM 3.5 mmol/L (3.5-5.1)
[2018-04-30] MEDS: LEVOTHYROXINE 100 MCG TAB PO SCH (06:49)
[2018-04-30] MEDS: ALBUT/IPRATROP 3MG/0.5MG NEB 3 ML VIAL INH SCH ×4 (07:20→19:02)
[2018-04-30] MEDS: CALCITRIOL 0.25 MCG CAP PO SCH (07:38)
[2018-04-30] MEDS: ATORVASTATIN 10 MG TAB PO SCH (07:39)
[2018-04-30] MEDS: CITALOPRAM 20 MG TAB PO SCH (07:39)
[2018-04-30] MEDS: AMIODARONE 200 MG TAB PO SCH (07:39)
[2018-04-30] MEDS: PANTOprazole SOD 40 MG TAB PO SCH (07:40)
[2018-04-30] MEDS: CHOLECALCIFEROL 1000 INTER.UNIT TAB PO SCH (07:40)
[2018-04-30] MEDS: MULTIVITAMINS W/MINERALS 15ML UDP PO SCH (07:40)
[2018-04-30] MEDS: MAGNESIUM OXIDE 400 MG TAB PO SCH ×2 (07:41→20:46)
[2018-04-30] MEDS: APIXABAN 2.5 MG TAB PO SCH ×2 (07:41→20:46)
[2018-04-30] MEDS: DOCUSATE SODIUM/SENNA 50/8.6MG TAB PO SCH ×2 (07:42→20:47)
[2018-04-30] MEDS ORDERED: CALCIUM GLUCONATE 10% 1,000 MG in SODIUM CHLORIDE 0.9% 50ML 50 ML IV ONE (07:45)
[2018-04-30] MEDS ORDERED: POTASSIUM CHLR 20 MEQ / WTR 20 MEQ IV ONE (07:45)
[2018-04-30] MEDS ORDERED: MAGNESIUM SULFATE 1GM / D5W 100 ML IV ONE (07:45)
[2018-04-30] MEDS: INSULIN ASPART 100 UNITS/ML 3 ML PEN SC SCH ×4 (07:48→20:47)
[2018-04-30] MEDS: SODIUM CHLOR 0.45% + 20MEQ KCL 1,000 ML IV SCH (13:02)
[2018-04-30] MEDS ORDERED: MIDODRINE 2.5 MG TAB PO STA (13:10)
[2018-04-30] MEDS ORDERED: SODIUM CHLORIDE 0.9% 500ML 500 ML IV STA (13:11)
[2018-04-30] MEDS ORDERED: NURSING VERBAL MED ORDER ONE (13:15)
--- NOTE | 2018-04-30 14:27 | PULMONARY PROGRESS NOTE ---
DATE: 04/30/2018 TIME: 2:05 p.m. SUBJECTIVE: The patient is sleeping heavily. She did arouse somewhat as I attempted to awaken her. I discussed the case with her RN. She has not had any problems today. She has been maintaining good saturations off of oxygen. OBJECTIVE: GENERAL: The patient is very lethargic. She does verbalize somewhat. She has the Passy-Lizeth valve in place to assist with phonation. VITAL SIGNS: Temperature is 36.8. Cardiac rate was 82 per minute. Rhythm is regular. Blood pressure earlier was 78/62. Currently, it is 96/48. LUNGS: Lung madden revealed mild rhonchi on the left compared with the right. Respiratory rate was 24, but not labored. Saturation is 91% on room air. There is no trach collar in place at present. This is despite the fact that Passy-[place] valve is in place. EXTREMITIES: Examination of both lower extremities show ecchymosis in the calf area. She has a blood pressure cuff located on the lower extremity. LABORATORY DATA: White count today is 4.11. Hemoglobin 10.7. Platelets 141,000. Electrolytes show sodium 142, potassium 3.5, chloride 106, bicarbonate 28. BUN is 12 with a creatinine of 1.19. Calcium was low at 6.9. Most recent albumin was 2.3 on 04/28/2018. Her trach shows chronic colonization with pseudomonas. Her last chest x-ray was 04/28/2018. This showed a tracheostomy tube in place. There is a PICC line on the right. The right hemidiaphragm is elevated chronically. The aeration at both bases is somewhat decreased, but it certainly could be positional as well. Atelectasis is to be considered. IMPRESSION: 1. Acute on chronic respiratory failure with hypoxia and hypercarbia. 2. Chronic obstructive pulmonary disease. 3. Diaphragm dysfunction - status post plication. 4. Status post trach. 5. Dysphagia. COMMENTS AND RECOMMENDATIONS: The patient seems about stable for her. She is currently on oral prednisone and I agree with that. She is on pantoprazole. She is on levofloxacin. She remains on DuoNeb therapy q.i.d. I agree with all the above. I have no significant suggestions at present.
[2018-04-30] MEDS ORDERED: SODIUM CHLORIDE 0.9% 1000ML 500 ML IV STA (16:22)
[2018-04-30] MEDS ORDERED: MIDODRINE 2.5 MG TAB PO SCH (17:00)
[2018-04-30] MEDS: ONDANSETRON INJ 2 MG/ML 2 ML VIAL IV PRN (19:31)
--- NOTE | 2018-04-30 19:58 | Hospitalist Progress Note ---
Hospitalist Progress Note Date of Service Apr 30, 2018. Subjective Pt evaluation today including: conversation w/ patient Pt with low BPs today and was feeling lightheaded after getting to chair. Placed back in bed, bolused x 2 and gave midodrine, BPs came up. Denies other problems, not eating much this AM All Other Systems: Reviewed and Negative Objective Vital Signs Date Time Temp Pulse Resp B/P (MAP) Pulse Ox O2 Delivery O2 Flow Rate FiO2 04/30/18 19:29 72 22 171/88 (115) 95 Room Air 04/30/18 19:02 69 18 94 Room Air 04/30/18 17:43 149/87 (107) 04/30/18 15:27 80 20 93 Room Air 04/30/18 15:22 36.7 77 22 73/38 (50) 92 Room Air 04/30/18 13:51 96/48 (64) 04/30/18 12:00 36.8 82 24 78/62 (67) 91 Room Air Trach Collar 04/30/18 11:21 63 16 92 Room Air 04/30/18 08:00 94 T-piece 6.0 30 04/30/18 07:49 36.9 86 23 86/50 (62) 94 T-piece 6.0 04/30/18 07:20 60 16 95 Trach Collar 28 04/30/18 04:24 36.9 82 24 123/74 (90) 92 Trach Collar 6.0 04/29/18 22:59 36.9 105 22 136/68 (90) 92 Trach Collar 6.0 04/29/18 20:11 36.8 86 22 184/88 (120) 96 Trach Collar 04/29/18 20:00 Trach Collar 30 Physical Exam General Appearance: WD/WN, no apparent distress Eyes: normal inspection, sclerae normal ENT: hearing grossly normal Neck: trachea midline (with trach collar in place) Respiratory/Chest: lungs clear, normal breath sounds, no respiratory distress, no accessory muscle use Cardiovascular: regular rate, rhythm, no edema, no murmur Abdomen: normal bowel sounds, non tender, soft Extremities: no calf tenderness Neurologic/Psychiatric: alert, normal mood/affect Skin: normal color, warm/dry Laboratory Results Last 24 Hours Test 04/29/18 20:28 04/30/18 04:36 04/30/18 11:26 04/30/18 16:23 Bedside Glucose 123 mg/dl 102 mg/dl 143 mg/dl White Blood Count 4.11 K/uL Red Blood Count 3.58 M/uL Hemoglobin 10.7 g/dL Hematocrit 33.0 % Mean Corpuscular Volume 92.2 fL Mean Corpuscular Hemoglobin 29.9 pg Mean Corpuscular Hemoglobin Concent 32.4 g/dl Platelet Count 141 K/uL Mean Platelet Volume 10.0 fL Neutrophils (%) (Auto) 64.8 % Lymphocytes (%) (Auto) 18.5 % Monocytes (%) (Auto) 11.7 % Eosinophils (%) (Auto) 0.2 % Basophils (%) (Auto) 0.2 % Neutrophils # (Auto) 2.66 K/uL Lymphocytes # (Auto) 0.76 K/uL Monocytes # (Auto) 0.48 K/uL Eosinophils # (Auto) 0.01 K/uL Basophils # (Auto) 0.01 K/uL RDW Standard Deviation 54.8 fL RDW Coefficient of Variation 16.1 % Immature Granulocyte % (Auto) 4.6 % Immature Granulocyte # (Auto) 0.19 K/uL Sodium Level 142 mmol/L Potassium Level 3.5 mmol/L Chloride Level 106 mmol/L Carbon Dioxide Level 28 mmol/L Anion Gap 8.0 mmol/L Blood Urea Nitrogen 12 mg/dl Creatinine 1.19 mg/dl Est Creatinine Clear Calc Drug Dose 37.6 ml/min Estimated GFR () 49.6 Estimated GFR (Non- 42.8 BUN/Creatinine Ratio 9.8 Random Glucose 87 mg/dl Calcium Level 6.9 mg/dl Magnesium Level 1.9 mg/dl Assessment and Plan This patient is an 83yo female here with: 1. Acute/chronic hypoxic respiratory failure/aspiration pneumonia due to new recurrent aspiration pneumonia and COPD exacerbation. Culprit pathogen is pseudomonas. Also with COPD exacerbation which is now resolved. Patient continues to aspirate frequently--patient declines feeding tube which would not significantly decrease her risk of aspiration anyway; she would like to eat for comfort and accept the risk of recurrent aspiration-she tells me she would not like to continue to return to the hospital for treatment for aspiration pneumonia-declines palliative care consultation POLST form filled out today stating she does not want to return to the hospital and would like to go to comfort measures only if she gets ill again in the future after discharge, limited trial of IV fluids, no artificial nutrition, and limited trial of oral antibiotics if would provide comfort or prolong her life, and changed to DNR/DNI Received Zosyn 3 days-changed to IV Levaquin on 04/27 to finish out a 10 day course (today day #7)-this will also cover for UTI as below Cont pulmonary toilet and suctioning along with nebs. continue prednisone 40 mg daily and taper back to 20mg -Consult pulmonology for further [id number] further recommendations 2. sepsis 2nd to RLL pneumonia (and UTI) -resolved 3. paroxysmal a. fib - diagnosed during previous hospital stay - remains in NSR. -continue amiodarone daily if can tolerate -Restarted Eliquis as no further GI bleeding and was very minor bleeding 4. dysphagia with aspiration - video swallow performed on 04/26; aspirates thins on the study. During previous hospitalization patient adamantly refused PEG placement with other discussion as above. Although she has tolerated thickened liquids speech is concerned she is at high risk of aspirating such as well. Eating for comfort at this point, accepting the risk of recurrent aspiration 5. acute/chronic anemia - s/p 2 units PRBCs and hemoglobin improved to 11.2, fairly stable today at 10.7. Hemoccult stool positive and with gross bleeding rectally on 04/27 which is now resolved -No further GI bleeding rectally-not likely to be significant drop in hemoglobin 6. UTI - 2nd to Proteus and Citrobacter both sensitive to Levaquin. Received Zosyn and then changed to Levaquin to complete 7 day course-today day # 7 7. LUE swelling - no DVT on doppler. Much improved today -Continue to elevate as much as possible. 8. protein calorie malnutrition, moderate - ongoing issue due to poor p.o. intake 9. COPD with exacerbation -change back to prednisone 40 mg daily as above, continue nebs, o2 via trach collar, etc. 10. h/o DVTs in the past - eliquis continues 11. CKD stage 3 -with history of ATN with [facility] last admission with creatinine up to the 6 range. Continues to improve and is with creatinine stable today at 1.19 -Renally dose medications -Avoid nephrotoxins -Follow BMP 12. Hypothyroidism - compensated with most recent TSH wnl; cont synthroid but changed back to p.o. 13. T2DM - controlled but holding lantus due to NPO status and borderline low sugars at times. 14. chronic diastolic CHF - compensated. 15. right-sided elevated Hemidiaphragm - S/P Plication in the past. Contributes to her hypoventilation 16. depression -continue Celexa 17. HTN/Orthostasis - BPs are low today with getting to chair Continue midodrine but make scheduled for today due to orthostasis -bolus with NS as needed 18. RLS -continue Requip and gabapentin 19. hypokalemia/hypocalcemia/hypomagnesemia-due to poor p.o. intake -Follow BMP and replace with IV as needed 20. Acute metabolic encephalopathy - 2nd to UTI, pneumonia, etc -resolved 21. Rectal bleeding-likely secondary to internal hemorrhoids in the setting of taking Eliquis-resolved -Okay to restart Eliquis -Appreciate GI consultation-no plans for endoscopy at this time given ongoing infections and multiple comorbidities and risk of anesthesia 22. History of constipation-is moving bowels regularly at this time -Hold off on home Linzess, hold senna/docusate Disposition-remain on telemetry as per patient and daughter's wishes, stable for discharge to SNF-patient wishes to attempt rehab and transition to hospice care if has recurrent aspiration or deterioration of her condition Changed to DNR/DNI POLST form completed and placed on the chart with wishes as above
[2018-04-30] MEDS: GABAPENTIN 300 MG CAP PO SCH (20:47)
[2018-04-30] MEDS: ROPINIROLE HCL 0.25 MG TAB PO SCH (20:47)
[2018-05-01] VITALS (11 sets, daily range): BP systolic 89–180; BP diastolic 59–90; PULSE 71–81; TEMP 36.6–37.3; O2SAT 91–100
[2018-05-01] MEDS: LEVOTHYROXINE 100 MCG TAB PO SCH (05:46)
[2018-05-01] MEDS: SODIUM CHLOR 0.45% + 20MEQ KCL 1,000 ML IV SCH (05:46)
[2018-05-01] MEDS: INSULIN ASPART 100 UNITS/ML 3 ML PEN SC SCH ×4 (07:00→21:00)
[2018-05-01] MEDS: ALBUT/IPRATROP 3MG/0.5MG NEB 3 ML VIAL INH SCH ×3 (07:03→15:08)
[2018-05-01] MEDS: APIXABAN 2.5 MG TAB PO SCH ×2 (07:45→19:34)
[2018-05-01] MEDS: MAGNESIUM OXIDE 400 MG TAB PO SCH ×2 (07:45→19:34)
[2018-05-01] MEDS: MULTIVITAMINS W/MINERALS 15ML UDP PO SCH (07:46)
[2018-05-01] MEDS: CALCITRIOL 0.25 MCG CAP PO SCH (07:46)
[2018-05-01] MEDS: PANTOprazole SOD 40 MG TAB PO SCH (07:46)
[2018-05-01] MEDS: DOCUSATE SODIUM/SENNA 50/8.6MG TAB PO SCH ×2 (07:46→19:36)
[2018-05-01] MEDS: AMIODARONE 200 MG TAB PO SCH (07:47)
[2018-05-01] MEDS: CHOLECALCIFEROL 1000 INTER.UNIT TAB PO SCH (07:47)
[2018-05-01] MEDS: LEVOFLOXACIN / D5W 750 MG in PREMIXED IN D5W 150 ML IV SCH (07:47)
[2018-05-01] MEDS: CITALOPRAM 20 MG TAB PO SCH (07:47)
[2018-05-01] MEDS: ATORVASTATIN 10 MG TAB PO SCH (07:47)
[2018-05-01] MEDS: HYDROmorphone INJ 0.5 MG/0.5 ML SYR IV PRN (13:36)
[2018-05-01] MEDS: MIDODRINE 2.5 MG TAB PO PRN (15:31)
[2018-05-01] MEDS: DICLOFENAC SOD 1% GEL 100 GM TUBE EXT SCH ×2 (16:43→19:33)
--- NOTE | 2018-05-01 19:22 | Hospitalist Progress Note ---
Hospitalist Progress Note Date of Service May 01, 2018. Subjective Pt evaluation today including: conversation w/ patient, conversation w/ family (Daughter at the bedside), physical exam, chart review, lab review Patient having some abdominal pain on the right side today which seems to be her usual spot. She has not moved her bowels in 2 days. Blood pressures were then significantly elevated this morning after being on scheduled midodrine yesterday. She also has pain in her legs and her neck which is chronic for her. Daughter reports the Voltaren gel has helped in the past. Attempts to get her out of the bed to the chair today with 3 people assisting failed as patient had a lot of arthritis pain in her shoulders and just did not want to get up. She has been on room air and with acceptable pulse oximetry for 24 hours. Telemetry normal sinus rhythm All Other Systems: Reviewed and Negative Objective Vital Signs Date Time Temp Pulse Resp B/P (MAP) Pulse Ox O2 Delivery O2 Flow Rate FiO2 05/01/18 16:30 92/59 (70) 05/01/18 15:22 36.8 74 20 89/67 (74) 93 Room Air 05/01/18 15:09 73 15 93 Room Air 05/01/18 11:37 75 18 94 Room Air 05/01/18 10:20 37.0 74 16 152/71 (98) 94 Room Air 05/01/18 08:00 93 Room Air 05/01/18 07:04 37.3 80 16 180/82 (114) 91 Room Air 05/01/18 07:04 71 18 94 Room Air 05/01/18 02:50 36.6 75 18 147/90 (109) 92 Room Air 04/30/18 23:49 37.0 77 20 137/75 (95) 92 04/30/18 21:05 37.1 04/30/18 20:00 93 Room Air 04/30/18 19:29 72 22 171/88 (115) 95 Room Air Physical Exam General Appearance: WD/WN, no apparent distress Eyes: normal inspection, sclerae normal ENT: hearing grossly normal Neck: trachea midline (With tracheostomy in place) Respiratory/Chest: no respiratory distress, no accessory muscle use, + decreased breath sounds (Throughout with some crackles at the bases bilaterally) Cardiovascular: regular rate, rhythm, no murmur, + pertinent finding (Trace pitting edema in the legs bilaterally) Abdomen: normal bowel sounds, soft, + tenderness (Mild tenderness palpation in the right side of the abdomen without guarding or rebound) Extremities: no calf tenderness Neurologic/Psychiatric: alert, + depressed affect Skin: normal color, warm/dry Laboratory Results Last 24 Hours Test 04/30/18 20:22 05/01/18 07:34 05/01/18 11:11 05/01/18 16:19 Bedside Glucose 139 mg/dl 74 mg/dl 88 mg/dl 124 mg/dl Assessment and Plan This patient is an 83yo female here with: 1. Acute/chronic hypoxic respiratory failure/aspiration pneumonia due to new recurrent aspiration pneumonia and COPD exacerbation. Culprit pathogen is pseudomonas. Also with COPD exacerbation which is now resolved. Now weaned off oxygen completely Patient continues to aspirate intermittently--patient declines feeding tube which would not significantly decrease her risk of aspiration anyway; she would like to eat for comfort and accept the risk of recurrent aspiration-she tells me she would not like to continue to return to the hospital for treatment for aspiration pneumonia-declines palliative care consultation POLST form filled out stating she does not want to return to the hospital and would like to go to comfort measures only if she gets ill again in the future after discharge, limited trial of IV fluids, no artificial nutrition, and limited trial of oral antibiotics if would provide comfort or prolong her life, and changed to DNR/DNI Received Zosyn 3 days-changed to IV Levaquin on 04/27 to finish out a 10 day course (today day #8)-this will also cover for UTI as below-changed to p.o. Levaquin today Cont pulmonary toilet and suctioning along with nebs. continue prednisone but taper to 30 mg daily, taper down by 10 mg every 2 days back to 20 mg daily and then remain on that dose indefinitely with slow taper down after that -Consult pulmonology for further [id number] further recommendations 2. sepsis 2nd to RLL pneumonia (and UTI) -resolved 3. paroxysmal a. fib - diagnosed during previous hospital stay - remains in NSR. -continue amiodarone daily if can tolerate -Restarted Eliquis as no further GI bleeding and was very minor bleeding 4. dysphagia with aspiration - video swallow performed on 04/26; aspirates thins on the study. During previous hospitalization patient adamantly refused PEG placement with other discussion as above. Although she has tolerated thickened liquids speech is concerned she is at high risk of aspirating such as well. Eating for comfort at this point, accepting the risk of recurrent aspiration 5. acute/chronic anemia - s/p 2 units PRBCs and hemoglobin improved to 11.2, fairly stable at 10.7. Hemoccult stool positive and with gross bleeding rectally on 04/27 which is now resolved -No further GI bleeding rectally-not likely to be significant drop in hemoglobin 6. UTI - 2nd to Proteus and Citrobacter both sensitive to Levaquin. Received Zosyn and then changed to Levaquin to complete 7 day course 7. LUE swelling - no DVT on doppler. Left hand swelling slightly worse today but seems to be dependent -Continue to elevate as much as possible. 8. protein calorie malnutrition, moderate - ongoing issue due to poor p.o. intake 9. COPD with exacerbation -change back to [id number] mg daily as above, continue nebs, o2 via trach collar as needed to keep pulse ox greater than 92%, etc. 10. h/o DVTs in the past - eliquis continues 11. CKD stage 3 -with history of ATN with [facility] last admission with creatinine up to the 6 range. Continues to improve and is with creatinine stable today at 1.19 -Renally dose medications -Avoid nephrotoxins -Follow BMP 12. Hypothyroidism - compensated with most recent TSH wnl; cont synthroid but changed back to p.o. 13. T2DM - controlled but holding lantus due to NPO status and borderline low sugars at times. 14. chronic diastolic CHF - compensated. 15. right-sided elevated Hemidiaphragm - S/P Plication in the past. Contributes to her hypoventilation 16. depression -continue Celexa 17. HTN/Orthostasis - BPs were low on 04/30 with getting to chair, mid to drain was made scheduled but then blood pressures became hypertensive Continue midodrine and change back to as needed systolic blood pressure less than 120 -DC IV fluids 18. RLS -continue Requip and gabapentin 19. hypokalemia/hypocalcemia/hypomagnesemia-due to poor p.o. intake -Follow BMP and replace with IV as needed 20. Acute metabolic encephalopathy - 2nd to UTI, pneumonia, etc -resolved 21. Rectal bleeding-likely secondary to internal hemorrhoids in the setting of taking Eliquis-resolved -Okay to restart Eliquis -Appreciate GI consultation-no plans for endoscopy at this time given ongoing infections and multiple comorbidities and risk of anesthesia 22. History of constipation/right-sided chronic abdominal pain-abdominal pain seems to improve when she is moving her bowels regularly. No bowel movement now in 2 days -Continue senna/docusate twice daily, continue MiraLAX as needed 23. Chronic neck pain, chronic leg pain-slightly worsened today -Restart tramadol along with Tylenol which seems to help -IV Dilaudid as needed for severe pain -Start Voltaren gel 4 times daily to affected sites Disposition-remain on telemetry as per patient and daughter's wishes, stable for discharge to SNF-patient wishes to attempt rehab and transition to hospice care if has recurrent aspiration or deterioration of her condition-still awaiting placement Changed to DNR/DNI POLST form completed and placed on the chart with wishes as above
[2018-05-01] MEDS: TRAMADOL HCL 50 MG TAB PO PRN (19:32)
[2018-05-01] MEDS: GABAPENTIN 300 MG CAP PO SCH (19:35)
[2018-05-01] MEDS: ROPINIROLE HCL 0.25 MG TAB PO SCH (19:35)
[2018-05-02] VITALS (11 sets, daily range): BP systolic 139–155; BP diastolic 58–83; PULSE 71–81; TEMP 36.7–37.7; O2SAT 90–99
[2018-05-02] MEDS: DICLOFENAC SOD 1% GEL 100 GM TUBE EXT SCH ×4 (00:48→19:39)
[2018-05-02 05:08] LABS: BASO % 0.2 %; BASO ABS # 0.01 K/uL (0-0.2); EOS % 0.2 %; EOS ABS # 0.01 K/uL (0-0.5); HEMATOCRIT 32.3 % (37-47); HEMOGLOBIN 10.2 g/dL (12.0-16.0); IG# 0.21 K/uL (0.00-0.02); LYMPH % 22.9 %; LYMPH ABS # 0.99 K/uL (1.2-3.4); MEAN CELL VOLUME 92.8 fL (80-100); MEAN CORPUSCULAR HEMOGLOBIN 29.3 pg (25-34); MEAN CORPUSCULAR HGB CONC 31.6 g/dl (32-36); MEAN PLATELET VOLUME 10.6 fL (7.4-10.4); MONO % 6.7 %; MONO ABS # 0.29 K/uL (0.11-0.59); NEUT % 65.1 %; NEUT ABS # 2.81 K/uL (1.4-6.5); PLATELET COUNT 163 K/uL (130-400); RED CELL DISTRIBUTION WIDTH CV 16.3 % (11.5-14.5); RED CELL DISTRIBUTION WIDTH SD 55.3 fL (36.4-46.3); WHITE BLOOD COUNT 4.32 K/uL (4.8-10.8)
[2018-05-02 05:49] LABS: CALCIUM 7.1 mg/dl (8.5-10.1); CREATININE 1.21 mg/dl (0.60-1.20); POTASSIUM 3.6 mmol/L (3.5-5.1)
[2018-05-02] MEDS: LEVOTHYROXINE 100 MCG TAB PO SCH (06:37)
[2018-05-02] MEDS: ALBUT/IPRATROP 3MG/0.5MG NEB 3 ML VIAL INH SCH ×4 (06:57→19:11)
[2018-05-02] MEDS ORDERED: POTASSIUM CHLR 20 MEQ / WTR 20 MEQ IV STA (07:41)
[2018-05-02] MEDS: MAGNESIUM SULFATE 1GM / D5W 100 ML IV SCH ×2 (08:28→09:43)
[2018-05-02] MEDS: INSULIN ASPART 100 UNITS/ML 3 ML PEN SC SCH ×4 (08:29→21:11)
[2018-05-02] MEDS: CALCIUM CITRATE 950 MG TAB PO SCH (08:30)
[2018-05-02] MEDS: TRAMADOL HCL 50 MG TAB PO PRN ×2 (08:30→19:43)
[2018-05-02] MEDS: APIXABAN 2.5 MG TAB PO SCH ×2 (08:31→19:40)
[2018-05-02] MEDS: AMIODARONE 200 MG TAB PO SCH (08:31)
[2018-05-02] MEDS: PANTOprazole SOD 40 MG TAB PO SCH (08:31)
[2018-05-02] MEDS: MAGNESIUM OXIDE 400 MG TAB PO SCH ×2 (08:31→19:40)
[2018-05-02] MEDS: CITALOPRAM 20 MG TAB PO SCH (08:32)
[2018-05-02] MEDS: DOCUSATE SODIUM/SENNA 50/8.6MG TAB PO SCH ×2 (08:32→19:41)
[2018-05-02] MEDS: CHOLECALCIFEROL 1000 INTER.UNIT TAB PO SCH (08:32)
[2018-05-02] MEDS: CALCITRIOL 0.25 MCG CAP PO SCH (08:32)
[2018-05-02] MEDS: ATORVASTATIN 10 MG TAB PO SCH (08:32)
[2018-05-02] MEDS: MULTIVITAMINS W/MINERALS 15ML UDP PO SCH (08:32)
[2018-05-02] MEDS ORDERED: POTASSIUM CHLR 20MEQ / WTR IV ONE (10:00)
--- NOTE | 2018-05-02 15:00 | Hospitalist Progress Note ---
Hospitalist Progress Note Date of Service May 02, 2018. Subjective Pt evaluation today including: conversation w/ patient Doing very well today. Is eating quite a bit more. Her blood pressures have been fine. She is on bed to chair. She says her abdominal pain is improved. Does not feel short of breath. All Other Systems: Reviewed and Negative Objective Vital Signs Date Time Temp Pulse Resp B/P (MAP) Pulse Ox O2 Delivery O2 Flow Rate FiO2 05/02/18 12:05 37.4 81 20 139/75 (96) 90 05/02/18 11:16 75 18 92 Room Air 05/02/18 08:11 37.7 81 18 155/73 (100) 90 Trach Collar 05/02/18 08:00 Room Air 05/02/18 06:57 72 18 91 Room Air 05/02/18 06:52 36.8 72 18 145/58 (87) 96 Room Air 05/02/18 03:52 36.7 74 15 150/71 (97) 92 Room Air 05/02/18 00:03 36.9 79 18 146/73 (97) 93 Room Air 05/01/18 20:12 93 Room Air 05/01/18 19:50 81 18 94 Room Air 05/01/18 19:46 37.1 81 20 154/71 (98) 100 05/01/18 16:30 92/59 (70) 05/01/18 15:22 36.8 74 20 89/67 (74) 93 Room Air 05/01/18 15:09 73 15 93 Room Air Physical Exam General Appearance: WD/WN, no apparent distress Eyes: normal inspection, sclerae normal ENT: hearing grossly normal Neck: trachea midline (With tracheostomy in place, not on oxygen) Respiratory/Chest: no respiratory distress, no accessory muscle use, + decreased breath sounds (Slightly at the bases but overall fairly clear) Cardiovascular: regular rate, rhythm, no murmur, + pertinent finding (Trace pitting edema in the legs bilaterally) Abdomen: normal bowel sounds, non tender, soft Extremities: no calf tenderness Neurologic/Psychiatric: alert, normal mood/affect Skin: normal color, warm/dry, no rash Laboratory Results Last 24 Hours Test 05/01/18 16:19 05/01/18 20:20 05/02/18 04:14 05/02/18 07:12 Bedside Glucose 124 mg/dl 122 mg/dl 86 mg/dl White Blood Count 4.32 K/uL Red Blood Count 3.48 M/uL Hemoglobin 10.2 g/dL Hematocrit 32.3 % Mean Corpuscular Volume 92.8 fL Mean Corpuscular Hemoglobin 29.3 pg Mean Corpuscular Hemoglobin Concent 31.6 g/dl Platelet Count 163 K/uL Mean Platelet Volume 10.6 fL Neutrophils (%) (Auto) 65.1 % Lymphocytes (%) (Auto) 22.9 % Monocytes (%) (Auto) 6.7 % Eosinophils (%) (Auto) 0.2 % Basophils (%) (Auto) 0.2 % Neutrophils # (Auto) 2.81 K/uL Lymphocytes # (Auto) 0.99 K/uL Monocytes # (Auto) 0.29 K/uL Eosinophils # (Auto) 0.01 K/uL Basophils # (Auto) 0.01 K/uL RDW Standard Deviation 55.3 fL RDW Coefficient of Variation 16.3 % Immature Granulocyte % (Auto) 4.9 % Immature Granulocyte # (Auto) 0.21 K/uL Sodium Level 142 mmol/L Potassium Level 3.6 mmol/L Chloride Level 107 mmol/L Carbon Dioxide Level 30 mmol/L Anion Gap 5.0 mmol/L Blood Urea Nitrogen 12 mg/dl Creatinine 1.21 mg/dl Est Creatinine Clear Calc Drug Dose 36.7 ml/min Estimated GFR () 48.6 Estimated GFR (Non- 41.9 BUN/Creatinine Ratio 10.3 Random Glucose 75 mg/dl Calcium Level 7.1 mg/dl Magnesium Level 1.7 mg/dl Chemistry Specimen Hemolysis Test 05/02/18 11:17 Bedside Glucose 85 mg/dl Assessment and Plan This patient is an 83yo female here with: 1. Acute/chronic hypoxic respiratory failure/aspiration pneumonia due to new recurrent aspiration pneumonia and COPD exacerbation. Culprit pathogen is pseudomonas. Also with COPD exacerbation which is now resolved. Now weaned off oxygen completely Patient continues to aspirate intermittently--patient declines feeding tube which would not significantly decrease her risk of aspiration anyway; she would like to eat for comfort and accept the risk of recurrent aspiration-she tells me she would not like to continue to return to the hospital for treatment for aspiration pneumonia-declines palliative care consultation POLST form filled out stating she does not want to return to the hospital and would like to go to comfort measures only if she gets ill again in the future after discharge, limited trial of IV fluids, no artificial nutrition, and limited trial of oral antibiotics if would provide comfort or prolong her life, and changed to DNR/DNI Received Zosyn 3 days-changed to IV Levaquin on 04/27 to finish out a 10 day course (today day #9)-this will also cover for UTI as below-changed to p.o. Levaquin Cont pulmonary toilet and suctioning along with nebs. continue prednisone but taper to 30 mg daily, taper down by 10 mg every 2 days back to 20 mg daily and then remain on that dose indefinitely with slow taper down after that -Consult pulmonology for further [id number] further recommendations 2. sepsis 2nd to RLL pneumonia (and UTI) -resolved 3. paroxysmal a. fib - diagnosed during previous hospital stay - remains in NSR. -continue amiodarone daily if can tolerate -Restarted Eliquis as no further GI bleeding and was very minor bleeding 4. dysphagia with aspiration - video swallow performed on 04/26; aspirates thins on the study. During previous hospitalization patient adamantly refused PEG placement with other discussion as above. Although she has tolerated thickened liquids speech is concerned she is at high risk of aspirating such as well. Eating for comfort at this point, accepting the risk of recurrent aspiration 5. acute/chronic anemia - s/p 2 units PRBCs and hemoglobin improved to 11.2, fairly stable at 10.7. Hemoccult stool positive and with gross bleeding rectally on 04/27 which is now resolved -No further GI bleeding rectally-not likely to be significant drop in hemoglobin 6. UTI - 2nd to Proteus and Citrobacter both sensitive to Levaquin. Received Zosyn and then changed to Levaquin to complete 7 day course 7. LUE swelling - no DVT on doppler. Left hand swelling improved today but seems to be dependent in variable -Continue to elevate as much as possible. 8. protein calorie malnutrition, moderate - ongoing issue due to poor p.o. intake 9. COPD with exacerbation -change back to prednisone 30 mg daily as above, continue nebs, o2 via trach collar as needed to keep pulse ox greater than 92%, etc. 10. h/o DVTs in the past - eliquis continues 11. CKD stage 3 -with history of ATN with [facility] last admission with creatinine up to the 6 range. Continues to improve and is with creatinine stable today at 1.21 -Renally dose medications -Avoid nephrotoxins -Follow BMP 12. Hypothyroidism - compensated with most recent TSH wnl; cont synthroid but changed back to p.o. 13. T2DM - controlled but holding lantus due to NPO status and borderline low sugars at times. 14. chronic diastolic CHF - compensated. 15. right-sided elevated Hemidiaphragm - S/P Plication in the past. Contributes to her hypoventilation, however is doing much better with decreasing the space with her tracheostomy 16. depression -continue Celexa 17. HTN/Orthostasis - BPs were low on 04/30 with getting to chair, mid to drain was made scheduled but then blood pressures became hypertensive Continue midodrine and change back to as needed systolic blood pressure less than 120 -DCd IV fluids 18. RLS -continue Requip and gabapentin 19. hypokalemia/hypocalcemia/hypomagnesemia-due to poor p.o. intake, improved today -Follow BMP and replace with IV as needed -Added calcium citrate once daily today 20. Acute metabolic encephalopathy - 2nd to UTI, pneumonia, etc -resolved 21. Rectal bleeding-likely secondary to internal hemorrhoids in the setting of taking Eliquis-resolved -Okay to restart Eliquis -Appreciate GI consultation-no plans for endoscopy at this time given ongoing infections and multiple comorbidities and risk of anesthesia 22. History of constipation/right-sided chronic abdominal pain-abdominal pain seems to improve when she is moving her bowels regularly. No bowel movement now in 3 days, however pain is improved today-possibly seems to be related to when she has lower blood pressures?. Could be some sort of ischemic colitis? -Continue senna/docusate twice daily, continue MiraLAX as needed -Event blood pressures from going too low 23. Chronic neck pain, chronic leg pain-improved today with restarting tramadol and Voltaren gel -Continue tramadol along with Tylenol which seems to help -IV Dilaudid as needed for severe pain -Continue Voltaren gel 4 times daily to affected sites Disposition-remain on telemetry as per patient and daughter's wishes, stable for discharge to SNF-patient wishes to attempt rehab and transition to hospice care if has recurrent aspiration or deterioration of her condition-still awaiting placement Changed to DNR/DNI POLST form completed and placed on the chart with wishes as above
[2018-05-02] MEDS: ACETAMINOPHEN 325 MG TAB PO PRN (15:39)
[2018-05-02] MEDS: ROPINIROLE HCL 0.25 MG TAB PO SCH (19:40)
[2018-05-02] MEDS: BOOST GLUCOSE CONTROL VANILLA PO SCH (19:41)
[2018-05-02] MEDS: GABAPENTIN 300 MG CAP PO SCH (19:41)
[2018-05-02] MEDS ORDERED: BOOST GLUCOSE CONTROL VANILLA PO SCH (21:00)
[2018-05-03] VITALS (10 sets, daily range): BP systolic 125–159; BP diastolic 59–77; PULSE 69–82; TEMP 36.8–37.6; O2SAT 92–95
[2018-05-03] MEDS: HYDROmorphone INJ 0.5 MG/0.5 ML SYR IV PRN (01:03)
[2018-05-03 05:32] LABS: CALCIUM 7.3 mg/dl (8.5-10.1); POTASSIUM 3.9 mmol/L (3.5-5.1)
[2018-05-03] MEDS: LEVOTHYROXINE 100 MCG TAB PO SCH (05:44)
[2018-05-03 05:49] LABS: CREATININE 1.09 mg/dl (0.60-1.20)
[2018-05-03] MEDS: ALBUT/IPRATROP 3MG/0.5MG NEB 3 ML VIAL INH SCH ×4 (07:13→20:09)
[2018-05-03] MEDS: AMIODARONE 200 MG TAB PO SCH (07:55)
[2018-05-03] MEDS: CALCITRIOL 0.25 MCG CAP PO SCH (07:56)
[2018-05-03] MEDS: DOCUSATE SODIUM/SENNA 50/8.6MG TAB PO SCH ×2 (07:56→21:11)
[2018-05-03] MEDS: CITALOPRAM 20 MG TAB PO SCH (07:56)
[2018-05-03] MEDS: PANTOprazole SOD 40 MG TAB PO SCH (07:56)
[2018-05-03] MEDS: ATORVASTATIN 10 MG TAB PO SCH (07:56)
[2018-05-03] MEDS: CHOLECALCIFEROL 1000 INTER.UNIT TAB PO SCH (07:56)
[2018-05-03] MEDS: MAGNESIUM OXIDE 400 MG TAB PO SCH ×2 (07:57→21:10)
[2018-05-03] MEDS: MULTIVITAMINS W/MINERALS 15ML UDP PO SCH (07:57)
[2018-05-03] MEDS: CALCIUM CITRATE 950 MG TAB PO SCH (07:57)
[2018-05-03] MEDS: DICLOFENAC SOD 1% GEL 100 GM TUBE EXT SCH ×4 (07:57→21:10)
[2018-05-03] MEDS: APIXABAN 2.5 MG TAB PO SCH ×2 (07:57→21:10)
[2018-05-03] MEDS: BOOST GLUCOSE CONTROL VANILLA PO SCH ×2 (08:04→21:10)
[2018-05-03] MEDS: INSULIN ASPART 100 UNITS/ML 3 ML PEN SC SCH ×4 (08:04→21:00)
--- NOTE | 2018-05-03 09:52 | PULMONARY PROGRESS NOTE ---
DATE: 05/03/2018 TIME: 8:35 a.m. SUBJECTIVE: The patient overall is doing well. She has had no problems according to her RN taking care of her. She is generally more awake. She is not having significant shortness of breath. The patient tells me she is a little short of breath. She does seem to cough with swallowing. OBJECTIVE: GENERAL: The patient appeared comfortable. She had just finished breakfast. I did hear her coughing somewhat with eating. She is doing well with her tracheostomy. The [place] valve is in place. VITAL SIGNS: The patient remains afebrile at present with a temperature of 36.9. Yesterday, she did have temperatures as high as 37.7. They were the highest that she had had for several days. Cardiac rate is 82 per minute. Rhythm is regular. Blood pressure is 159/66. LUNGS: Lung madden revealed very mild rhonchi. Respiratory rate was 18 breaths per minute. Saturation was 93% on room air. SKIN: The patient's skin shows ecchymosis in numerous areas. These are most prominent on the legs and arms, but she even has some along the lateral and posterior chest cano. +1 edema was noted. LABORATORY DATA: Electrolytes today show sodium 139, potassium 3.9, chloride 105, bicarbonate 31. BUN was 16 with a creatinine of 1.09. ASSESSMENT: 1. Acute on chronic respiratory failure with hypoxia and hypercarbia. 2. Chronic obstructive pulmonary disease. 3. Diaphragm dysfunction - status post plication. 4. Status post tracheostomy. 5. Dysphagia. COMMENTS AND RECOMMENDATIONS: The patient seems to be overall stable. The patient apparently is waiting for placement. Pulmonary will sign off, but will be happy to see her again if requested.
[2018-05-03] MEDS ORDERED: LEVOFLOXACIN 750 MG TAB PO SCH (11:00)
[2018-05-03] MEDS ORDERED: NURSING VERBAL MED ORDER ONE (13:00)
[2018-05-03] MEDS: MIDODRINE 2.5 MG TAB PO PRN (13:04)
--- NOTE | 2018-05-03 19:32 | Hospitalist Progress Note ---
Hospitalist Progress Note Date of Service May 03, 2018. Subjective Pt evaluation today including: conversation w/ patient, physical exam The patient states that she feels fine today. She is not short of breath and coughing minimally. She actually looks the best I have ever seen her. She tried to get out of bed today and was standing, but then said she did not have enough strength to keep walking all the way to the chair so she got back into bed. Still awaiting placement. Telemetry with normal sinus rhythm, PACs, rates in the 60s-80s, first-degree block at times. All Other Systems: Reviewed and Negative Objective Vital Signs Date Time Temp Pulse Resp B/P (MAP) Pulse Ox O2 Delivery O2 Flow Rate FiO2 05/03/18 15:10 73 18 92 Room Air 05/03/18 15:00 37.6 79 18 134/63 (86) 93 Room Air 05/03/18 11:47 36.8 82 18 127/66 (86) 92 Room Air 05/03/18 11:23 79 18 92 Room Air 05/03/18 08:00 Room Air 05/03/18 07:13 70 18 93 Room Air 05/03/18 07:02 36.9 69 16 159/66 (97) 92 Room Air 05/03/18 03:45 36.9 71 14 125/66 (85) 95 Room Air 05/03/18 00:01 36.8 77 18 157/59 (91) 92 Room Air 05/02/18 20:00 Room Air 05/02/18 19:24 36.7 71 18 150/72 (98) 99 Physical Exam General Appearance: WD/WN, no apparent distress Eyes: normal inspection, sclerae normal ENT: hearing grossly normal Neck: trachea midline (With tracheostomy in place) Respiratory/Chest: lungs clear, normal breath sounds, no respiratory distress, no accessory muscle use Cardiovascular: regular rate, rhythm, no murmur, + pertinent finding (Trace pitting edema in the legs bilaterally, 1+ pitting edema in the left upper arm) Abdomen: normal bowel sounds, non tender, soft Extremities: non-tender Neurologic/Psychiatric: alert, normal mood/affect, oriented x 3 Skin: normal color, warm/dry, + pertinent finding (Multiple areas of ecchymosis scattered on arms and legs) Laboratory Results Last 24 Hours Test 8/15/18 20:37 05/03/18 04:26 05/03/18 07:30 05/03/18 10:59 Bedside Glucose 175 mg/dl 89 mg/dl 87 mg/dl Sodium Level 139 mmol/L Potassium Level 3.9 mmol/L Chloride Level 105 mmol/L Carbon Dioxide Level 31 mmol/L Anion Gap 3.0 mmol/L Blood Urea Nitrogen 16 mg/dl Creatinine 1.09 mg/dl Est Creatinine Clear Calc Drug Dose 40.7 ml/min Estimated GFR () 55.1 Estimated GFR (Non- 47.6 BUN/Creatinine Ratio 14.8 Random Glucose 92 mg/dl Calcium Level 7.3 mg/dl Magnesium Level 2.0 mg/dl Test 05/03/18 16:25 Bedside Glucose 146 mg/dl Assessment and Plan This patient is an 83yo female here with: 1. Acute/chronic hypoxic respiratory failure/aspiration pneumonia due to new recurrent aspiration pneumonia and COPD exacerbation. Culprit pathogen is pseudomonas. Also with COPD exacerbation which is now resolved. Now weaned off oxygen completely for many days. Patient continues to aspirate intermittently--patient declines feeding tube which would not significantly decrease her risk of aspiration anyway; she would like to eat for comfort and accept the risk of recurrent aspiration-she tells me she would not like to continue to return to the hospital for treatment for aspiration pneumonia-declines palliative care consultation POLST form filled out stating she does not want to return to the hospital and would like to go to comfort measures only if she gets ill again in the future after discharge, limited trial of IV fluids, no artificial nutrition, and limited trial of oral antibiotics if would provide comfort or prolong her life, and changed to DNR/DNI Received Zosyn 3 days-changed to IV Levaquin on 04/27 to finish out a 10 day course (today day #10)-this will also cover for UTI as below-changed to p.o. Levaquin Cont pulmonary toilet and suctioning along with nebs. continue prednisone and taper back to 20 mg daily and then remain on that dose indefinitely with slow taper down after that over the next several months -Consult pulmonology for further [id number] further recommendations 2. sepsis 2nd to RLL pneumonia (and UTI) -resolved 3. paroxysmal a. fib - diagnosed during previous hospital stay - remains in NSR for over a month. -continue amiodarone daily -Restarted Eliquis as no further GI bleeding and was very minor bleeding-of note , she is on the renal dose of Eliquis at 2.5 mg p.o. twice daily. This was started when her renal function was worse, however it has since recovered. -Consideration could be made to increase her Eliquis back to the 5 mg p.o. twice daily dose if creatinine remains stable 4. dysphagia with aspiration - video swallow performed on 04/26; aspirates thins on the study. During previous hospitalization patient adamantly refused PEG placement with other discussion as above. Although she has tolerated thickened liquids speech is concerned she is at high risk of aspirating such as well. Eating for comfort at this point, accepting the risk of recurrent aspiration 5. acute/chronic anemia - s/p 2 units PRBCs and hemoglobin improved to 11.2, fairly stable at 10.7. Hemoccult stool positive and with gross bleeding rectally on 04/27 which is now resolved -No further GI bleeding rectally-not likely to be significant drop in hemoglobin 6. UTI - 2nd to Proteus and Citrobacter both sensitive to Levaquin. Received Zosyn and then changed to Levaquin and has since completed a 7 day course 7. LUE swelling - no DVT on doppler. Left hand swelling improved but continues with swelling in the left upper arm -Continue to elevate as much as possible. 8. protein calorie malnutrition, moderate - ongoing issue due to poor p.o. intake 9. COPD with exacerbation -change back to prednisone 20 mg daily as above for tomorrow, continue nebs, o2 via trach collar as needed to keep pulse ox greater than 92%, etc. although she has not needed any oxygen 10. h/o DVTs in the past - eliquis continues 11. CKD stage 3 -with history of ATN with [facility] last admission with creatinine up to the 6 range. Continues to improve and is with creatinine stable today at 1.09 -Renally dose medications -Avoid nephrotoxins -Follow BMP periodically but not daily at this point 12. Hypothyroidism - compensated with most recent TSH wnl; cont synthroid but changed back to p.o. 13. T2DM - controlled but holding lantus due to NPO status and borderline low sugars at times. 14. chronic diastolic CHF - compensated. 15. right-sided elevated Hemidiaphragm - S/P Plication in the past. Contributes to her hypoventilation, however is doing much better with decreasing the space with her tracheostomy 16. depression -very stable -Continue Celexa 17. HTN/Orthostasis - BPs were low on 04/30 with getting to chair, midodrine was made scheduled but then blood pressures became hypertensive Continue midodrine and change back to as needed systolic blood pressure less than 130 -DCd IV fluids 18. RLS -continue Requip and gabapentin 19. hypokalemia/hypocalcemia/hypomagnesemia-due to poor p.o. intake, replaced and now resolved -Added calcium citrate once daily along with her p.o. magnesium 20. Acute metabolic encephalopathy - 2nd to UTI, pneumonia, etc -resolved 21. Rectal bleeding-likely secondary to internal hemorrhoids in the setting of taking Eliquis-resolved after one brief episode on 04/27 -Okay to restart Eliquis -Appreciate GI consultation-no plans for endoscopy at this time given ongoing infections and multiple comorbidities and risk of anesthesia 22. History of constipation/right-sided chronic abdominal pain-abdominal pain seems to improve when she is moving her bowels regularly. No bowel movement now in 2 days, however pain is improved today-possibly seems to be related to when she has lower blood pressures?. Could be some sort of ischemic colitis? -Continue senna/docusate twice daily, continue MiraLAX as needed -Prevent blood pressures from going too low 23. Chronic neck pain, chronic leg pain-improved with restarting tramadol and Voltaren gel -Continue tramadol along with Tylenol which seems to help -IV Dilaudid as needed for severe pain but try to avoid this at this point -Continue Voltaren gel 4 times daily to affected sites Disposition-remain on telemetry as per patient and daughter's wishes due to perception of better care in the telemetry unit, stable for discharge to SNF- patient wishes to attempt rehab and transition to hospice care if has recurrent aspiration or deterioration of her condition-still awaiting placement and now has to fill out a "target" form for [facility] given her history of major depressive disorder. [facility] could have taken her but patient and daughter demanding a private room which they do not have available at this time. No other facilities are willing to accept her given her tracheostomy Changed to DNR/DNI POLST form completed and placed on the chart with wishes as above
[2018-05-03] MEDS: GABAPENTIN 300 MG CAP PO SCH (21:10)
[2018-05-03] MEDS: ROPINIROLE HCL 0.25 MG TAB PO SCH (21:11)
[2018-05-04] VITALS (10 sets, daily range): BP systolic 118–202; BP diastolic 67–111; PULSE 69–92; TEMP 36.4–37.7; O2SAT 91–100
[2018-05-04] MEDS ORDERED: HydrALAZINE HCL 20 MG/ML VIAL IV. STA (05:34)
[2018-05-04] MEDS ORDERED: HydrALAZINE HCL 20 MG/ML VIAL ONE (05:39)
[2018-05-04] MEDS: LEVOTHYROXINE 100 MCG TAB PO SCH (05:46)
[2018-05-04] MEDS: ALBUT/IPRATROP 3MG/0.5MG NEB 3 ML VIAL INH SCH ×4 (07:18→19:04)
[2018-05-04] MEDS: INSULIN ASPART 100 UNITS/ML 3 ML PEN SC SCH ×4 (08:38→21:00)
[2018-05-04] MEDS: DICLOFENAC SOD 1% GEL 100 GM TUBE EXT SCH ×4 (08:41→21:11)
[2018-05-04] MEDS: BOOST GLUCOSE CONTROL VANILLA PO SCH ×2 (08:43→21:13)
[2018-05-04] MEDS: CITALOPRAM 20 MG TAB PO SCH (08:43)
[2018-05-04] MEDS: MULTIVITAMINS W/MINERALS 15ML UDP PO SCH (08:44)
[2018-05-04] MEDS: AMIODARONE 200 MG TAB PO SCH (08:46)
[2018-05-04] MEDS: METOPROLOL TARTRATE 25 MG TAB PEG SCH ×2 (08:46→21:12)
[2018-05-04] MEDS: CALCIUM CITRATE 950 MG TAB PO SCH (08:47)
[2018-05-04] MEDS: APIXABAN 2.5 MG TAB PO SCH ×2 (08:47→21:11)
[2018-05-04] MEDS: ATORVASTATIN 10 MG TAB PO SCH (08:48)
[2018-05-04] MEDS: MAGNESIUM OXIDE 400 MG TAB PO SCH ×2 (08:48→21:12)
[2018-05-04] MEDS: CALCITRIOL 0.25 MCG CAP PO SCH (08:49)
[2018-05-04] MEDS: DOCUSATE SODIUM/SENNA 50/8.6MG TAB PO SCH ×2 (08:49→21:11)
[2018-05-04] MEDS: PANTOprazole SOD 40 MG TAB PO SCH (08:49)
[2018-05-04] MEDS: CHOLECALCIFEROL 1000 INTER.UNIT TAB PO SCH (08:50)
--- NOTE | 2018-05-04 10:28 | Progress Note ---
Subjective Date of Service: May 04, 2018. Subjective Pt evaluation today including: conversation w/ patient, physical exam, chart review, lab review, review of inpatient medication list Pain: right shoulder - chronic PO Intake: 50% of breakfast this am Voiding: incontinence ([place] [place] system in place) tele - NSR overnight denies dyspnea mild cough, somewhat productive feeling good otherwise noted low-grade temps overnight Problem List Medical Problems: (1) Aspiration pneumonia Status: Acute (2) Cervical strain Status: Acute (3) Contusion of multiple sites Status: Acute (4) COPD exacerbation Status: Acute (5) Fall Status: Acute (6) Fall from chair, initial encounter Status: Acute (7) Fatigue Status: Acute (8) Head injury Status: Acute (9) Head injury Status: Acute (10) Hip pain Status: Acute (11) Hypocalcemia Status: Acute (12) Hypoxia Status: Acute (13) Hypoxia Status: Acute (14) Lower extremity edema Status: Acute (15) PNA (pneumonia) Status: Acute (16) Pneumonia Status: Acute (17) Pneumonitis Status: Acute (18) Reactive airway disease Status: Acute (19) Right flank pain Status: Acute (20) Sepsis Status: Acute (21) Sepsis Status: Acute (22) Syncope Status: Acute (23) Traumatic compression fracture of third thoracic vertebra Status: Acute (24) Vaginal yeast infection Status: Acute (25) Weakness Status: Acute (26) Yeast vaginitis Status: Acute Review of Systems Respiratory: No dyspnea at rest, No hemoptysis Cardiac: No chest pain Abdomen: + constipation, No pain Objective Vital Signs Date Time Temp Pulse Resp B/P (MAP) Pulse Ox O2 Delivery O2 Flow Rate FiO2 05/04/18 08:14 37.7 92 16 150/95 (113) 100 Trach Collar 05/04/18 07:18 79 18 99 Room Air 05/04/18 06:23 164/89 (114) 05/04/18 05:25 37.0 89 17 202/111 (141) 91 Room Air 05/04/18 00:35 37.1 83 18 176/76 (109) 91 Room Air 05/03/18 20:38 36.8 80 17 158/77 (104) 93 Room Air 05/03/18 20:00 Room Air 05/03/18 19:10 78 18 94 Room Air 05/03/18 15:10 73 18 92 Room Air 05/03/18 15:00 37.6 79 18 134/63 (86) 93 Room Air 05/03/18 11:47 36.8 82 18 127/66 (86) 92 Room Air 05/03/18 11:23 79 18 92 Room Air Physical Exam General Appearance: no apparent distress, + pertinent finding (looks good) ENT: + pertinent finding (mild thrush on buccal mucosa) Neck: no JVD, + pertinent finding (trach in place with [place] also in place ) Respiratory/Chest: no respiratory distress, no accessory muscle use, + wheezing (occasional) Cardiovascular: regular rate, rhythm, no gallop, no murmur Abdomen: normal bowel sounds, non tender, soft, no organomegaly, + distended ( mild) Extremities: no pedal edema, + swelling (LUE but markedly improved from previous visit 1 week ago) Neurologic/Psychiatric: alert, oriented x 3 Skin: + pertinent finding (ecchymoses on legs) Comments: PICC line, RUE - clean Laboratory Results Last 24 Hours Test 05/03/18 10:59 05/03/18 16:25 05/03/18 20:31 05/04/18 07:20 Bedside Glucose 87 mg/dl 146 mg/dl 140 mg/dl 118 mg/dl Assessment and Plan 83yo female: 1. acute/chronic hypoxic respiratory failure - due to new aspiration pneumonia/ pseudomonas and COPD exacerbation - resolved. Completed full course of levaquin and prednisone taper. Stable in room air. 2. sepsis 2nd to RLL pneumonia and UTI - resolved, although having low-grade temps. Recheck u/a and urine cx to ensure UTI has resolved. If temps continue then repeat cxr. Would also need blood cx's especially due to PICC line. 3. paroxysmal a. fib - diagnosed during previous hospital stay - remains in NSR. Cont amiodarone. Cont eliquis. 4. dysphagia with aspiration - video swallow performed earlier this stay; aspirated thins. During previous hospitalization patient adamantly refused PEG placement and continues to refuse PEG. Cont modified liquids and solids. 5. acute/chronic anemia - s/p 2 units PRBCs. H/H stable since then. Possible lower GI bleeding from hemorrhoids earlier this stay. 6. UTI - 2nd to proteus/citrobacter. Repeat u/a and urine cx for test of cure. [place] is OUT. 7. LUE swelling - no DVT on doppler. Improved. 8. protein calorie malnutrition, moderate - slowly improving. 9. COPD with exacerbation - back down to normal prednisone dose of 20mg/day. 10. h/o DVTs in the past - eliquis. 11. CKD stage 3 - creatinine stable. 12. Hypothyroidism - compensated with most recent TSH wnl; cont synthroid. 13. T2DM - controlled. 14. chronic diastolic CHF - compensated. 15. right-sided elevated Hemidiaphragm - S/P Plication in the past. 16. depression - celexa. 17. HTN - metoprolol 12.5mg BID. 18. RLS - requip. 19. thrush - nystatin solution QID x 7 days. 20. metabolic encephalopathy - resolved. 2nd to sepsis/infectious issues. 21. constipation - senna, miralax. dispo - SNF, Target process has been started for ultimate transfer to [facility] Continued [facility] stay due to: ambulation difficulties [facility] planning[facility] facility
[2018-05-04] MEDS ORDERED: POLYETHYLENE (MIRALAX) 17 GM PACK PO ONE (10:45)
[2018-05-04] MEDS: NYSTATIN SUSP 500,000 U/5 ML UDC PO SCH ×3 (12:30→21:11)
[2018-05-04] MEDS: ROPINIROLE HCL 0.25 MG TAB PO SCH (21:11)
[2018-05-04] MEDS: GABAPENTIN 300 MG CAP PO SCH (21:12)
[2018-05-05] VITALS (10 sets, daily range): BP systolic 131–157; BP diastolic 60–95; PULSE 65–75; TEMP 36.6–36.9; O2SAT 90–97
[2018-05-05] MEDS: LEVOTHYROXINE 100 MCG TAB PO SCH (05:43)
[2018-05-05] MEDS: INSULIN ASPART 100 UNITS/ML 3 ML PEN SC SCH ×4 (07:00→21:00)
[2018-05-05] MEDS: ALBUT/IPRATROP 3MG/0.5MG NEB 3 ML VIAL INH SCH ×4 (07:13→18:53)
[2018-05-05] MEDS: BOOST GLUCOSE CONTROL VANILLA PO SCH ×2 (08:28→21:44)
[2018-05-05] MEDS: MULTIVITAMINS W/MINERALS 15ML UDP PO SCH (08:28)
[2018-05-05] MEDS: DICLOFENAC SOD 1% GEL 100 GM TUBE EXT SCH ×4 (08:52→21:45)
[2018-05-05] MEDS: METOPROLOL TARTRATE 25 MG TAB PEG SCH ×2 (08:53→21:50)
[2018-05-05] MEDS: CALCITRIOL 0.25 MCG CAP PO SCH (08:54)
[2018-05-05] MEDS: CITALOPRAM 20 MG TAB PO SCH (08:54)
[2018-05-05] MEDS: PANTOprazole SOD 40 MG TAB PO SCH (08:55)
[2018-05-05] MEDS: NYSTATIN SUSP 500,000 U/5 ML UDC PO SCH ×4 (08:55→21:46)
[2018-05-05] MEDS: MAGNESIUM OXIDE 400 MG TAB PO SCH ×2 (08:56→21:49)
[2018-05-05] MEDS: ATORVASTATIN 10 MG TAB PO SCH (08:56)
[2018-05-05] MEDS: POLYETHYLENE (MIRALAX) 17 GM PACK PO SCH (08:56)
[2018-05-05] MEDS: CALCIUM CITRATE 950 MG TAB PO SCH (08:56)
[2018-05-05] MEDS: AMIODARONE 200 MG TAB PO SCH (08:57)
[2018-05-05] MEDS: APIXABAN 2.5 MG TAB PO SCH ×2 (08:57→21:49)
[2018-05-05] MEDS: CHOLECALCIFEROL 1000 INTER.UNIT TAB PO SCH (08:58)
[2018-05-05] MEDS: DOCUSATE SODIUM/SENNA 50/8.6MG TAB PO SCH ×2 (08:58→21:48)
[2018-05-05 16:32] LABS: BASO % 0.2 %; BASO ABS # 0.01 K/uL (0-0.2); HEMATOCRIT 36.6 % (37-47); HEMOGLOBIN 11.6 g/dL (12.0-16.0); IG# 0.16 K/uL (0.00-0.02); LYMPH % 23.1 %; MEAN CELL VOLUME 93.4 fL (80-100); MEAN CORPUSCULAR HEMOGLOBIN 29.6 pg (25-34); MEAN CORPUSCULAR HGB CONC 31.7 g/dl (32-36); MEAN PLATELET VOLUME 10.5 fL (7.4-10.4); MONO % 3.8 %; MONO ABS # 0.25 K/uL (0.11-0.59); NEUT % 70.4 %; NEUT ABS # 4.58 K/uL (1.4-6.5); PLATELET COUNT 136 K/uL (130-400); RED CELL DISTRIBUTION WIDTH CV 16.3 % (11.5-14.5); RED CELL DISTRIBUTION WIDTH SD 55.3 fL (36.4-46.3)
--- NOTE | 2018-05-05 17:12 | Progress Note ---
Subjective Date of Service: May 05, 2018. Subjective Pt evaluation today including: conversation w/ patient, physical exam, chart review, lab review, review of studies, review of inpatient medication list Pain: right shoulder Voiding: incontinence patient much more lethargic today than yesterday upon my arrival her eyes were closed and she was moving her mouth in a chewing fashion constantly she kept her eyes closed most of the visit but would briefly open them at times she did answer questions but gave mostly one-word answers and was hard to keep awake unable to complete a full ROS due to altered MS Problem List Medical Problems: (1) Aspiration pneumonia Status: Acute (2) Cervical strain Status: Acute (3) Contusion of multiple sites Status: Acute (4) COPD exacerbation Status: Acute (5) Fall Status: Acute (6) Fall from chair, initial encounter Status: Acute (7) Fatigue Status: Acute (8) Head injury Status: Acute (9) Head injury Status: Acute (10) Hip pain Status: Acute (11) Hypocalcemia Status: Acute (12) Hypoxia Status: Acute (13) Hypoxia Status: Acute (14) Lower extremity edema Status: Acute (15) PNA (pneumonia) Status: Acute (16) Pneumonia Status: Acute (17) Pneumonitis Status: Acute (18) Reactive airway disease Status: Acute (19) Right flank pain Status: Acute (20) Sepsis Status: Acute (21) Sepsis Status: Acute (22) Syncope Status: Acute (23) Traumatic compression fracture of third thoracic vertebra Status: Acute (24) Vaginal yeast infection Status: Acute (25) Weakness Status: Acute (26) Yeast vaginitis Status: Acute Objective Vital Signs Date Time Temp Pulse Resp B/P (MAP) Pulse Ox O2 Delivery O2 Flow Rate FiO2 05/05/18 15:38 65 18 93 Room Air 05/05/18 14:56 36.9 65 18 140/62 (88) 90 Room Air 05/05/18 11:57 36.9 66 18 139/60 (86) 90 Room Air 05/05/18 10:55 75 18 92 Room Air 05/05/18 08:00 Room Air 05/05/18 07:13 75 18 92 Room Air 05/05/18 06:52 36.7 65 18 139/95 (110) 92 Room Air 05/05/18 03:56 36.6 70 20 157/72 (100) 97 Room Air 05/04/18 23:09 37.0 69 20 151/76 (101) 91 Room Air 05/04/18 20:00 Room Air Trach Collar 05/04/18 19:05 74 18 94 Room Air 05/04/18 19:05 36.7 78 20 118/67 (84) 93 Room Air Physical Exam General Appearance: no apparent distress, + pertinent finding (jaw smacking/ chewing but able to open eyes and answer questions) Neck: no JVD, + pertinent finding (trach in place, clean) Respiratory/Chest: no respiratory distress, no accessory muscle use, + rales ( left base) Cardiovascular: regular rate, rhythm, no gallop, no murmur Abdomen: normal bowel sounds, non tender, soft, no organomegaly, + distended ( mildly) Extremities: no pedal edema Neurologic/Psychiatric: + pertinent finding (oriented to place, time but otherwise confused ) Skin: + pertinent finding (ecchymoses on legs b/l ) Comments: PICC line, RUE - clean Laboratory Results Last 24 Hours Test 05/04/18 20:31 05/04/18 20:45 05/05/18 07:09 05/05/18 16:21 Bedside Glucose 113 mg/dl 86 mg/dl 140 mg/dl Urine Color YELLOW Urine Appearance CLEAR Urine pH 8.5 Urine Specific [place] 1.015 Urine Protein NEG Urine Glucose (UA) NEG Urine Ketones NEG Urine Occult Blood NEG Urine Nitrite NEG Urine Bilirubin NEG Urine Urobilinogen NEG Urine Leukocyte Esterase NEG Test 05/05/18 16:24 White Blood Count 6.50 K/uL Red Blood Count 3.92 M/uL Hemoglobin 11.6 g/dL Hematocrit 36.6 % Mean Corpuscular Volume 93.4 fL Mean Corpuscular Hemoglobin 29.6 pg Mean Corpuscular Hemoglobin Concent 31.7 g/dl Platelet Count 136 K/uL Mean Platelet Volume 10.5 fL Neutrophils (%) (Auto) 70.4 % Lymphocytes (%) (Auto) 23.1 % Monocytes (%) (Auto) 3.8 % Eosinophils (%) (Auto) 0.0 % Basophils (%) (Auto) 0.2 % Neutrophils # (Auto) 4.58 K/uL Lymphocytes # (Auto) 1.50 K/uL Monocytes # (Auto) 0.25 K/uL Eosinophils # (Auto) 0.00 K/uL Basophils # (Auto) 0.01 K/uL RDW Standard Deviation 55.3 fL RDW Coefficient of Variation 16.3 % Immature Granulocyte % (Auto) 2.5 % Immature Granulocyte # (Auto) 0.16 K/uL Venous Blood pH 7.47 Venous Blood Partial Pressure CO2 46 mmHg Venous Blood Partial Pressure O2 33 mmHg Venous Blood HCO3 32 mmol/L Venous Blood Oxygen Saturation 62.8 % Venous Blood Base Excess 7.8 mEq/L Assessment and Plan 83yo female: 1. acute/chronic hypoxic respiratory failure - acute component resolved. COPD exacerbation and pseudomonas pneumonia/aspiration pneumonia resolved. Completed full course of levaquin and prednisone taper. Stable in room air. However, with new altered mental status, will repeat her cxr to ensure there is no new pneumonia process brewing. 2. sepsis 2nd to RLL pneumonia and UTI - resolved, although had been having low -grade temps. I repeat a u/a and urine culture yesterday - urine cx was indeed negative. In light of altered MS will obtain blood cx's with 1 set from her PICC line, repeat cbc, and cxr. Low threshold for IV antibiotics if any worsening today/tonight. 3. paroxysmal a. fib - remains in NSR. Cont amiodarone. Cont eliquis. 4. dysphagia with aspiration - video swallow this admission showed aspiration of thins. During previous hospitalization patient adamantly refused PEG placement and continues to refuse PEG. Cont modified liquids and solids. 5. acute/chronic anemia - s/p 2 units PRBCs. H/H stable since then. Possible lower GI bleeding from hemorrhoids earlier this stay resolved and has not recurred. 6. UTI - 2nd to proteus/citrobacter. Repeat urine culture negative. 7. encephalopathy - etiology uncertain but I am concerned about recurrent infection. Repeat blood cx's, cbc, VBG, and cxr. 8. protein calorie malnutrition, moderate - slowly improving. 9. COPD with exacerbation - back down to normal prednisone dose of 20mg/day. 10. h/o DVTs in the past - eliquis. 11. CKD stage 3 - creatinine stable. 12. Hypothyroidism - compensated with most recent TSH wnl; cont synthroid. 13. T2DM - controlled. 14. chronic diastolic CHF - compensated. 15. right-sided elevated Hemidiaphragm - S/P Plication in the past. 16. depression - celexa. consider increase to 40mg/day. 17. HTN - metoprolol 12.5mg BID. controlled. 18. RLS - requip. 19. thrush - nystatin solution QID x 7 days. 20. constipation - senna, miralax. dispo - SNF, awaiting bed see discussion above re: altered MS Continued [facility] stay due to: other (altered MS) Discharge planning: assisted facility
[2018-05-05 18:15] LABS: CALCIUM 8.3 mg/dl (8.5-10.1); CREATININE 1.22 mg/dl (0.60-1.20)
--- NOTE | 2018-05-05 20:21 | DIAGNOSTIC IMAGING REPORT ---
CHEST ONE VIEW PORTABLE CLINICAL HISTORY: 83 years-old Female presenting with trach, resp failure, altered MS; eval for new infiltrates. TECHNIQUE: Portable upright AP view of the chest was obtained. COMPARISON: 04/28/2018. FINDINGS: Tracheostomy tube and right upper extremity PICC remain in place. Atherosclerosis of aortic arch. Cardiac silhouette mildly enlarged, unchanged. Mild elevation of the right hemidiaphragm unchanged. Stable to slight interval improvement in bibasilar aeration. Bandlike opacities in the mid to lower lungs, likely atelectasis. No large pleural effusion or pneumothorax. Reverse right shoulder arthroplasty. Left shoulder arthroplasty. Anterior and posterior cervical hardware. Extensive thoracolumbar posterior fusion hardware. Additional surgical clips project over the right upper quadrant. Upper abdomen normal. IMPRESSION: 1. Stable to slight interval improvement in bibasilar aeration. Suspected bibasilar atelectasis. Electronically signed by: Jorge Villafana M.D. 05/05/2018 8:19 PM Dictated Date/Time: 05/05/2018 8:16 PM
[2018-05-05] MEDS: GABAPENTIN 300 MG CAP PO SCH (21:49)
[2018-05-05] MEDS: ROPINIROLE HCL 0.25 MG TAB PO SCH (21:50)
[2018-05-06] VITALS (12 sets, daily range): BP systolic 114–144; BP diastolic 37–76; PULSE 60–76; TEMP 36.6–37.3; O2SAT 90–97
[2018-05-06] MEDS: LEVOTHYROXINE 100 MCG TAB PO SCH (06:06)
[2018-05-06] MEDS: ALBUT/IPRATROP 3MG/0.5MG NEB 3 ML VIAL INH SCH ×4 (07:03→19:05)
[2018-05-06] MEDS: INSULIN ASPART 100 UNITS/ML 3 ML PEN SC SCH ×4 (08:25→20:32)
[2018-05-06] MEDS: DICLOFENAC SOD 1% GEL 100 GM TUBE EXT SCH ×4 (08:26→20:28)
[2018-05-06] MEDS: METOPROLOL TARTRATE 25 MG TAB PEG SCH ×2 (08:27→20:30)
[2018-05-06] MEDS: CITALOPRAM 20 MG TAB PO SCH (08:27)
[2018-05-06] MEDS: BOOST GLUCOSE CONTROL VANILLA PO SCH ×2 (08:27→20:27)
[2018-05-06] MEDS: MULTIVITAMINS W/MINERALS 15ML UDP PO SCH (08:28)
[2018-05-06] MEDS: CALCIUM CITRATE 950 MG TAB PO SCH (08:28)
[2018-05-06] MEDS: MAGNESIUM OXIDE 400 MG TAB PO SCH ×2 (08:29→20:31)
[2018-05-06] MEDS: ATORVASTATIN 10 MG TAB PO SCH (08:29)
[2018-05-06] MEDS: NYSTATIN SUSP 500,000 U/5 ML UDC PO SCH ×4 (08:29→20:30)
[2018-05-06] MEDS: APIXABAN 2.5 MG TAB PO SCH ×2 (08:29→20:31)
[2018-05-06] MEDS: POLYETHYLENE (MIRALAX) 17 GM PACK PO SCH (08:29)
[2018-05-06] MEDS: AMIODARONE 200 MG TAB PO SCH (08:29)
[2018-05-06] MEDS: PANTOprazole SOD 40 MG TAB PO SCH (08:30)
[2018-05-06] MEDS: CALCITRIOL 0.25 MCG CAP PO SCH (08:30)
[2018-05-06] MEDS: CHOLECALCIFEROL 1000 INTER.UNIT TAB PO SCH (08:30)
[2018-05-06] MEDS: DOCUSATE SODIUM/SENNA 50/8.6MG TAB PO SCH ×2 (08:30→20:32)
--- NOTE | 2018-05-06 08:53 | Progress Note ---
Subjective Date of Service: May 06, 2018. Subjective Pt evaluation today including: conversation w/ patient, physical exam, chart review, lab review, review of studies (cxr, cx's, etc), review of inpatient medication list Pain: right shoulder PO Intake: eating breakfast during the visit Voiding: incontinence tele with NSR overnight she is more awake/alert today; knows it is "18" and that it is April/summer but thinks she is at home moaning throughout the visit, stating her right shoulder hurts denies dyspnea, cough, cp, abd pain nursing staff reports she slept well all night Problem List Medical Problems: (1) Aspiration pneumonia Status: Acute (2) Cervical strain Status: Acute (3) Contusion of multiple sites Status: Acute (4) COPD exacerbation Status: Acute (5) Fall Status: Acute (6) Fall from chair, initial encounter Status: Acute (7) Fatigue Status: Acute (8) Head injury Status: Acute (9) Head injury Status: Acute (10) Hip pain Status: Acute (11) Hypocalcemia Status: Acute (12) Hypoxia Status: Acute (13) Hypoxia Status: Acute (14) Lower extremity edema Status: Acute (15) PNA (pneumonia) Status: Acute (16) Pneumonia Status: Acute (17) Pneumonitis Status: Acute (18) Reactive airway disease Status: Acute (19) Right flank pain Status: Acute (20) Sepsis Status: Acute (21) Sepsis Status: Acute (22) Syncope Status: Acute (23) Traumatic compression fracture of third thoracic vertebra Status: Acute (24) Vaginal yeast infection Status: Acute (25) Weakness Status: Acute (26) Yeast vaginitis Status: Acute Review of Systems Respiratory: No cough, No sputum, No wheezing, No shortness of breath Cardiac: No chest pain, No orthopnea Abdomen: No pain, No nausea Objective Vital Signs Date Time Temp Pulse Resp B/P (MAP) Pulse Ox O2 Delivery O2 Flow Rate FiO2 05/06/18 07:16 37.3 67 20 137/64 (88) 97 Room Air 05/06/18 07:03 65 18 93 Room Air 05/06/18 03:57 36.8 76 22 144/73 (96) 92 Room Air 05/06/18 00:00 37.3 69 18 126/76 (93) 94 Room Air 05/05/18 20:00 94 Room Air 05/05/18 19:25 36.9 71 18 131/75 (93) 94 05/05/18 18:53 70 18 95 Room Air 05/05/18 15:38 65 18 93 Room Air 05/05/18 14:56 36.9 65 18 140/62 (88) 90 Room Air 05/05/18 11:57 36.9 66 18 139/60 (86) 90 Room Air 05/05/18 10:55 75 18 92 Room Air Physical Exam General Appearance: no apparent distress, + pertinent finding (moaning, but a/ o x 2) ENT: pharynx normal (thrush resolved) Neck: + pertinent finding (trach clean; no JVD) Respiratory/Chest: lungs clear, no respiratory distress, no accessory muscle use, + decreased breath sounds (bases), + rales (minimal - left base) Cardiovascular: regular rate, rhythm, no gallop, no murmur Abdomen: normal bowel sounds, soft, no organomegaly, + distended (mild) Extremities: no pedal edema Neurologic/Psychiatric: no motor/sensory deficits (strength 5/5 x 4 exts), alert Skin: no rash Laboratory Results Last 24 Hours Test 05/05/18 11:13 05/05/18 16:21 05/05/18 16:24 05/05/18 20:25 Bedside Glucose 92 mg/dl 140 mg/dl 121 mg/dl White Blood Count 6.50 K/uL Red Blood Count 3.92 M/uL Hemoglobin 11.6 g/dL Hematocrit 36.6 % Mean Corpuscular Volume 93.4 fL Mean Corpuscular Hemoglobin 29.6 pg Mean Corpuscular Hemoglobin Concent 31.7 g/dl Platelet Count 136 K/uL Mean Platelet Volume 10.5 fL Neutrophils (%) (Auto) 70.4 % Lymphocytes (%) (Auto) 23.1 % Monocytes (%) (Auto) 3.8 % Eosinophils (%) (Auto) 0.0 % Basophils (%) (Auto) 0.2 % Neutrophils # (Auto) 4.58 K/uL Lymphocytes # (Auto) 1.50 K/uL Monocytes # (Auto) 0.25 K/uL Eosinophils # (Auto) 0.00 K/uL Basophils # (Auto) 0.01 K/uL RDW Standard Deviation 55.3 fL RDW Coefficient of Variation 16.3 % Immature Granulocyte % (Auto) 2.5 % Immature Granulocyte # (Auto) 0.16 K/uL Venous Blood pH 7.47 Venous Blood Partial Pressure CO2 46 mmHg Venous Blood Partial Pressure O2 33 mmHg Venous Blood HCO3 32 mmol/L Venous Blood Oxygen Saturation 62.8 % Venous Blood Base Excess 7.8 mEq/L Sodium Level 143 mmol/L Potassium Level 4.0 mmol/L Chloride Level 104 mmol/L Carbon Dioxide Level 31 mmol/L Anion Gap 8.0 mmol/L Blood Urea Nitrogen 20 mg/dl Creatinine 1.22 mg/dl Est Creatinine Clear Calc Drug Dose 36.0 ml/min Estimated GFR () 48.1 Estimated GFR (Non- 41.5 BUN/Creatinine Ratio 16.0 Random Glucose 136 mg/dl Calcium Level 8.3 mg/dl Test 05/06/18 07:22 Bedside Glucose 70 mg/dl Assessment and Plan 83yo female: 1. acute/chronic hypoxic respiratory failure - acute component resolved. COPD exacerbation and pseudomonas pneumonia/aspiration pneumonia resolved. Completed full course of levaquin and prednisone taper. Stable in room air. CXR 05/05 with improved airspace opacities and no new infiltrates. 2. sepsis 2nd to RLL pneumonia and UTI - resolved. I had concern of recurrent sepsis yesterday but thus far all cultures are negative and she is improved w/o antibiotics. CXR also improved. 3. paroxysmal a. fib - remains in NSR. Cont amiodarone. Cont eliquis. 4. dysphagia with aspiration - video swallow this admission showed aspiration of thins. No plans for PEG at patient request. Cont modified liquids and solids. 5. acute/chronic anemia - s/p 2 units PRBCs this stay. H/H stable since then. Possible lower GI bleeding from hemorrhoids earlier this stay resolved and has not recurred. 6. UTI - 2nd to proteus/citrobacter. Repeat urine culture negative. 7. encephalopathy - resolved/resolving. Etiology uncertain. Hospital psychosis? No recurrent infectious process found. Continue to monitor. Nothing on exam to suggest stroke. 8. protein calorie malnutrition, moderate - slowly improving. 9. COPD with exacerbation - flare resolved, remains on chronic prednisone dose of 20mg/day. 10. h/o DVTs in the past - eliquis. 11. CKD stage 3 - creatinine stable. 12. Hypothyroidism - compensated with most recent TSH wnl; cont synthroid. 13. T2DM - controlled. 14. chronic diastolic CHF - compensated. 15. right-sided elevated Hemidiaphragm - S/P Plication in the past. 16. depression - celexa. consider increase to 40mg/day. 17. HTN - metoprolol 12.5mg BID. controlled. 18. RLS - requip. 19. thrush - nystatin solution QID x 7 days. resolved. 20. constipation - senna, miralax. 21. right shoulder pain - this is a chronic complaint, but given she continues to complain of such, will obtain x-rays to rule out bony abnormalities. Cont voltaren gel QID. dispo - SNF, awaiting bed Delores, daughter, updated 05/05 overall doing better today but her long-term prognosis is very, very poor Continued [facility] stay due to: other (altered MS) Discharge planning: halfway facility
[2018-05-06] MEDS: ACETAMINOPHEN 325 MG TAB PO PRN (10:43)
--- NOTE | 2018-05-06 11:45 | DIAGNOSTIC IMAGING REPORT ---
R SHOULDER MIN 2 VIEWS ROUTINE CLINICAL HISTORY: right shoulder pain, h/o surgery COMPARISON: Right shoulder radiographs August 04, 2017. FINDINGS: Right PICC, tracheostomy tube and postoperative findings within the cervical spine are incidentally noted. Distal right clavicular resection is noted. 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 There is no periprosthetic fracture or lucency. There are no unexpected radiopaque foreign bodies. IMPRESSION: Stable postoperative findings following reverse total right shoulder arthroplasty. Electronically signed by: Jake Lo M.D. 05/06/2018 11:44 AM Dictated Date/Time: 05/06/2018 11:42 AM
[2018-05-06] MEDS: TRAMADOL HCL 50 MG TAB PO PRN (16:18)
[2018-05-06] MEDS: GABAPENTIN 300 MG CAP PO SCH (20:29)
[2018-05-06] MEDS: ROPINIROLE HCL 0.25 MG TAB PO SCH (20:32)
[2018-05-07] VITALS (11 sets, daily range): BP systolic 95–158; BP diastolic 62–89; PULSE 67–77; TEMP 36.5–37.2; O2SAT 91–98
[2018-05-07] MEDS: LEVOTHYROXINE 100 MCG TAB PO SCH (05:57)
[2018-05-07] MEDS: ALBUT/IPRATROP 3MG/0.5MG NEB 3 ML VIAL INH SCH ×4 (07:08→19:06)
[2018-05-07] MEDS: PANTOprazole SOD 40 MG TAB PO SCH (08:15)
[2018-05-07] MEDS: METOPROLOL TARTRATE 25 MG TAB PEG SCH ×2 (08:15→20:55)
[2018-05-07] MEDS: CALCIUM CITRATE 950 MG TAB PO SCH (08:17)
[2018-05-07] MEDS: MAGNESIUM OXIDE 400 MG TAB PO SCH ×2 (08:17→20:55)
[2018-05-07] MEDS: DICLOFENAC SOD 1% GEL 100 GM TUBE EXT SCH ×4 (08:17→20:54)
[2018-05-07] MEDS: ATORVASTATIN 10 MG TAB PO SCH (08:18)
[2018-05-07] MEDS: CALCITRIOL 0.25 MCG CAP PO SCH (08:18)
[2018-05-07] MEDS: AMIODARONE 200 MG TAB PO SCH (08:18)
[2018-05-07] MEDS: DOCUSATE SODIUM/SENNA 50/8.6MG TAB PO SCH ×2 (08:18→20:55)
[2018-05-07] MEDS: APIXABAN 2.5 MG TAB PO SCH ×2 (08:18→20:55)
[2018-05-07] MEDS: CHOLECALCIFEROL 1000 INTER.UNIT TAB PO SCH (08:18)
[2018-05-07] MEDS: CITALOPRAM 20 MG TAB PO SCH (08:19)
[2018-05-07] MEDS: NYSTATIN SUSP 500,000 U/5 ML UDC PO SCH ×4 (08:19→20:54)
[2018-05-07] MEDS: MIDODRINE 2.5 MG TAB PO PRN (08:19)
[2018-05-07] MEDS: POLYETHYLENE (MIRALAX) 17 GM PACK PO SCH (08:19)
[2018-05-07] MEDS: MULTIVITAMINS W/MINERALS 15ML UDP PO SCH (08:19)
[2018-05-07] MEDS: INSULIN ASPART 100 UNITS/ML 3 ML PEN SC SCH ×4 (08:25→21:05)
[2018-05-07] MEDS: BOOST GLUCOSE CONTROL VANILLA PO SCH ×2 (08:27→20:54)
[2018-05-07] MEDS: TRAMADOL HCL 50 MG TAB PO PRN (15:18)
--- NOTE | 2018-05-07 19:38 | Progress Note ---
Subjective Date of Service: May 07, 2018. Subjective Pt evaluation today including: conversation w/ patient, physical exam, chart review, lab review Pain: right shoulder - chronic, no change PO Intake: eating decently today Voiding: incontinence tele - NSR overnight no new complaints wide awake today - alert, oriented, sitting in chair denies depression; states she is happy when asked what she enjoys she says "TV" Problem List Medical Problems: (1) Aspiration pneumonia Status: Acute (2) Cervical strain Status: Acute (3) Contusion of multiple sites Status: Acute (4) COPD exacerbation Status: Acute (5) Fall Status: Acute (6) Fall from chair, initial encounter Status: Acute (7) Fatigue Status: Acute (8) Head injury Status: Acute (9) Head injury Status: Acute (10) Hip pain Status: Acute (11) Hypocalcemia Status: Acute (12) Hypoxia Status: Acute (13) Hypoxia Status: Acute (14) Lower extremity edema Status: Acute (15) PNA (pneumonia) Status: Acute (16) Pneumonia Status: Acute (17) Pneumonitis Status: Acute (18) Reactive airway disease Status: Acute (19) Right flank pain Status: Acute (20) Sepsis Status: Acute (21) Sepsis Status: Acute (22) Syncope Status: Acute (23) Traumatic compression fracture of third thoracic vertebra Status: Acute (24) Vaginal yeast infection Status: Acute (25) Weakness Status: Acute (26) Yeast vaginitis Status: Acute Review of Systems Constitutional: No fever Respiratory: No shortness of breath Cardiac: No chest pain Abdomen: No pain, No nausea, No vomiting Objective Vital Signs Date Time Temp Pulse Resp B/P (MAP) Pulse Ox O2 Delivery O2 Flow Rate FiO2 05/07/18 07:09 75 16 93 Room Air 05/07/18 06:36 36.9 67 20 118/62 (80) 92 Room Air 05/07/18 04:00 70 145/71 (95) 05/07/18 03:24 36.6 67 18 95/68 (77) 92 Room Air 05/06/18 23:08 37.1 75 20 122/69 (86) 94 Room Air 05/06/18 20:00 95 Room Air 05/06/18 19:05 67 16 95 Room Air 05/06/18 18:47 36.6 70 17 135/62 (86) 90 Room Air 05/06/18 14:57 36.6 67 18 143/65 (91) 92 05/06/18 14:45 60 18 92 Room Air 05/06/18 12:00 36.8 69 16 114/37 (62) 94 Room Air Physical Exam General Appearance: no apparent distress, + pertinent finding (looks good today ; cushingnoid facies) ENT: pharynx normal (thrush resolved) Neck: + pertinent finding (trach clean) Respiratory/Chest: lungs clear, no respiratory distress, no accessory muscle use, + decreased breath sounds (right base), + crackles (scant, bases) Cardiovascular: regular rate, rhythm, no gallop, no murmur Abdomen: normal bowel sounds, non tender, soft, no organomegaly, + distended ( mild - chronic, no change) Extremities: no pedal edema Neurologic/Psychiatric: alert, oriented x 3, + depressed affect Laboratory Results Last 24 Hours Test 05/06/18 11:42 05/06/18 16:20 05/06/18 20:19 05/07/18 07:20 Bedside Glucose 133 mg/dl 161 mg/dl 101 mg/dl 91 mg/dl Assessment and Plan 83yo female: 1. acute/chronic hypoxic respiratory failure - acute component resolved. COPD exacerbation and pseudomonas pneumonia/aspiration pneumonia resolved. Completed full course of levaquin and prednisone taper. Stable in room air. CXR 05/05 with improved airspace opacities and no new infiltrates. 2. sepsis 2nd to RLL pneumonia and UTI - resolved. 3. paroxysmal a. fib - remains in NSR. Cont amiodarone. Cont eliquis. 4. dysphagia with aspiration - video swallow this admission showed aspiration of thins. No plans for PEG at patient request. Cont modified liquids and solids. 5. acute/chronic anemia - s/p 2 units PRBCs this stay. H/H stable since then. 6. UTI - 2nd to proteus/citrobacter. Repeat urine culture recently negative. 7. encephalopathy - resolved. Etiology uncertain. Hospital psychosis? No recurrent infectious process found in the last 72 hours. About every 2-3 days she will be altered where she sleeps most of the day but will awaken to answer questions & knows she is in the hospital. Today she is completely back to baseline without doing anything to improve her mental status. Nothing by history/exam to suggest seizures. Continue to monitor. Of note - patient denies being depressed although she seems depressed to me. 8. protein calorie malnutrition, moderate - slowly improving. 9. COPD with exacerbation - flare resolved, remains on chronic prednisone dose of 20mg/day. 10. h/o DVTs in the past - eliquis. 11. CKD stage 3 - creatinine stable. 12. Hypothyroidism - compensated with most recent TSH wnl; cont synthroid. 13. T2DM - controlled. 14. chronic diastolic CHF - compensated. 15. right-sided elevated Hemidiaphragm - S/P Plication in the past. 16. depression - celexa. consider increase to 40mg/day. 17. HTN - metoprolol 12.5mg BID. controlled. 18. RLS - requip. 19. thrush - resolved. 20. constipation - senna, miralax. 21. right shoulder pain - this is a chronic complaint; x-rays yesterday of right shoulder stable with intact hardware. Cont voltaren gel QID. dispo - SNF, awaiting bed; appreciate outstanding social work efforts update daughter, Delores, today Discharge planning: [facility] facility
[2018-05-07] MEDS: GABAPENTIN 300 MG CAP PO SCH (20:54)
[2018-05-07] MEDS: ROPINIROLE HCL 0.25 MG TAB PO SCH (20:54)
[2018-05-08] VITALS (7 sets, daily range): BP systolic 133–144; BP diastolic 69–78; PULSE 67–82; TEMP 36.5–36.8; O2SAT 92–97
[2018-05-08 04:38] LABS: HEMATOCRIT 34.1 % (37-47); HEMOGLOBIN 10.8 g/dL (12.0-16.0); MEAN CELL VOLUME 93.9 fL (80-100); MEAN CORPUSCULAR HEMOGLOBIN 29.8 pg (25-34); MEAN CORPUSCULAR HGB CONC 31.7 g/dl (32-36); PLATELET COUNT 148 K/uL (130-400); RED CELL DISTRIBUTION WIDTH CV 16.6 % (11.5-14.5); RED CELL DISTRIBUTION WIDTH SD 56.7 fL (36.4-46.3); WHITE BLOOD COUNT 5.91 K/uL (4.8-10.8)
[2018-05-08 04:51] LABS: CREATININE 1.36 mg/dl (0.60-1.20)
[2018-05-08] MEDS: LEVOTHYROXINE 100 MCG TAB PO SCH (05:29)
[2018-05-08] MEDS: ALBUT/IPRATROP 3MG/0.5MG NEB 3 ML VIAL INH SCH ×3 (06:54→15:12)
[2018-05-08] MEDS: BOOST GLUCOSE CONTROL VANILLA PO SCH (07:54)
[2018-05-08] MEDS: CITALOPRAM 20 MG TAB PO SCH (07:59)
[2018-05-08] MEDS: CALCIUM CITRATE 950 MG TAB PO SCH (08:00)
[2018-05-08] MEDS: APIXABAN 2.5 MG TAB PO SCH (08:00)
[2018-05-08] MEDS: MAGNESIUM OXIDE 400 MG TAB PO SCH (08:02)
[2018-05-08] MEDS: CALCITRIOL 0.25 MCG CAP PO SCH (08:02)
[2018-05-08] MEDS: DOCUSATE SODIUM/SENNA 50/8.6MG TAB PO SCH (08:03)
[2018-05-08] MEDS: AMIODARONE 200 MG TAB PO SCH (08:03)
[2018-05-08] MEDS: METOPROLOL TARTRATE 25 MG TAB PEG SCH (08:05)
[2018-05-08] MEDS: ATORVASTATIN 10 MG TAB PO SCH (08:05)
[2018-05-08] MEDS: PANTOprazole SOD 40 MG TAB PO SCH (08:05)
[2018-05-08] MEDS: MULTIVITAMINS W/MINERALS 15ML UDP PO SCH (08:06)
[2018-05-08] MEDS: NYSTATIN SUSP 500,000 U/5 ML UDC PO SCH ×2 (08:07→11:33)
[2018-05-08] MEDS: POLYETHYLENE (MIRALAX) 17 GM PACK PO SCH (08:07)
[2018-05-08] MEDS: DICLOFENAC SOD 1% GEL 100 GM TUBE EXT SCH ×2 (08:07→13:25)
[2018-05-08] MEDS: INSULIN ASPART 100 UNITS/ML 3 ML PEN SC SCH ×2 (08:17→11:56)
[2018-05-08] MEDS: CHOLECALCIFEROL 1000 INTER.UNIT TAB PO SCH (09:20)
[2018-05-08] MEDS ORDERED: MILK AND MOLASSES ENEMA PR PRN (10:30)
[2018-05-08] MEDS ORDERED: BISACODYL 10 MG SUPP PR STA (10:43)
[2018-05-08] MEDS ORDERED: NYSS5 PO (14:11)
[2018-05-08] MEDS ORDERED: PRMT25 PO (14:11)
[2018-05-08] MEDS ORDERED: NUTR-7 PO (14:11)
[2018-05-08] MEDS ORDERED: TRAM-10 PO (14:11)
[2018-05-08] MEDS ORDERED: MGNO400 PO (14:11)
[2018-05-08] MEDS ORDERED: LPR25 PO (14:11)
[2018-05-08] MEDS ORDERED: VNTHFA/IN INH (14:11)
[2018-05-08] MEDS ORDERED: NVLGIPEN SC (14:11)
[2018-05-08] MEDS ORDERED: VLTG EXT (14:11)
[2018-05-08] MEDS ORDERED: MRLP17 PO (14:11)
--- NOTE | 2018-05-08 14:27 | Discharge Instructions ---
Discharge Instructions Date of Service May 08, 2018. Admission Reason for Admission: Altered Mental Status, UTI, Pneumonia Discharge Discharge Diagnosis / Problem: Pseudomonas Pneumonia - resolved. UTI - resolved. Discharge Goals Goal(s): Improve disease control, Learn about illness, Diagnostic testing, Therapeutic intervention Activity Recommendations Activity Level: Assistance Required Therapies: Physical Therapy, Occupational Therapy, Speech Therapy . Additional Information Patient informed of condition: Yes Advance Directives: Yes DNR: Yes Level of Care: Skilled Communicable Disease: No Prognosis: Other (stable at this time, but prognosis is poor and she is at high risk of hospital readmission ) Oxygen at (LPM): none [place]oney Catheter: No Instructions / Follow-Up Instructions / Follow-Up 1. instructional support services director of SNF within [address] Omid Sandoval or one of the pulmonary office physician assistants within 1 week if possible Current Hospital Diet Patient's current hospital diet: Diabetes Type 2 Diet Discharge Diet Recommended Diet: Diabetes Type 2 Diet Diet Texture: Pureed (blended smooth) Liquid Consistency: [place] Thick Procedures Procedures Performed: 1. LEFT ARM doppler negative for DVT. 2. Video swallow test showing aspiration of thin liquids. Pending Studies Studies pending at discharge: no Physician Orders On Transfer Special Precautions: aspiration precautions - see full speech recommendations below - The patient has moderate miriam-pharyngeal dysphagia. While this patient did not aspirate nectar thick liquids or pudding textures on her video swallow study (has SILENT aspiration of thins), she is a HIGH ASPIRATION RISK with ANY p.o. intake, as she has had multiple events where food has been suctioned from her trach, clearly indicating that she does in fact aspirate at times. Therefore, Recommendations are as follows: 1.Clinically, the safest recommendation would be strict NPO status with consideration of alternate means of nutrition and hydration. However, the patient has consistently declined a PEG feeding tube. 2.Should the patient and family wish to pursue permissive aspiration with p.o. intake for quality of life, a palliative care consult would be indicated with consideration of hospice as this patient will continue to aspirate food and liquid. 3.Should the patient opt for permissive aspiration, there is no truly "safe diet" for her to consume. The diet that would likely be the most comfortable to consume would be pureed and nectar thick liquids, however, it is highly probable she will aspirate this as well. The following would also be indicated for improved comfort while eating: a.Aspiration and GERD precautions, NO STRAWS. Fully upright for meals and for 30 minutes after meals. Head of the bed to be elevated at all times (to at least 30 degrees) to include while sleeping. b.Safe swallow strategies: Small bites/sips. Rest breaks as needed. Stop feeding if the patient has increased difficulty tolerating meals or should she become more fatigued, SOB, etc. c.Stringent oral care-brush all surfaces of the mouth and tongue prior to and after meals, and before bed to reduce the amount of oral bacteria that can be aspirated in her saliva. 4.Regarding use of the [place] speaking Valve, this should only be worn as the patient feels comfortable, when she is AWAKE and ALERT, for communication purposes. The valve cannot be worn while sleeping. IV Therapy: flush PICC line, Right Arm, per protocol Vital Signs: per routine O2 sat checks at least twice daily and PRN Weigh: every AM on standing scale notify medical claims representative of any weight gain of more than 2-3 pounds in 1-2 days Additional Orders: CBC, BMP, and magnesium level in 5 days for stability -- results to medical claims representative fingerstick blood sugar checks before meals and at bedtime POLST Discussion: with POLST completion Laboratory Results Hemoglobin A1c Test 03/24/18 05:47 Range/Units Estimated Average Glucose 157 mg/dl Hemoglobin A1c 7.1 H 4.5-5.6 % Medical Emergencies . Who to Call and When: Medical Emergencies: If at any time you feel your situation is an emergency, please call 911 immediately. . Non-Emergent Contact Non-Emergency issues call your: Primary Care Provider ([facility] medical claims representative), Eyeglass Frames Inspector Call Non-Emergent contact if: temperature is above 100.5, your pain is not controlled, your pain is worsening, your pain is unusual for you, your pain is concerning you, you have any medication questions . . "Provider Documentation" section prepared by Bradley Mann. . Core Measure Problem Core Measures: None
--- NOTE | 2018-05-11 08:26 | Discharge Summary ---
Discharge Summary Date of Service May 11, 2018. Discharge Summary Admission Date: Apr 24, 2018 at 13:47 Discharge Date: May 08, 2018 Discharge Disposition[facility] jail facility ([facility] ) Principal Diagnosis: RLL pseudomonas pneumonia Problems/Secondary Diagnoses: 1. COPD with exacerbation - resolved; patient is chronically steroid-dependent 2. acute on chronic hypoxic respiratory failure 3. obesity-hypoventilation syndrome 4. sepsis 2nd to RLL pneumonia and UTI 5. proteus and citrobacter UTI 6. H/O DVTs 7. hypothyroidism 8. tracheostomy status 9. metabolic encephalopathy - resolved 10. T2DM 11. moderate protein calorie malnutrition 12. CKD stage 3 13. chronic diastolic CHF 14. 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 history of elevated R Hemidiaphragm S/P Plication 17. major depressive disorder 18. restless leg syndrome 19. chronic lower back pain and right shoulder pain 20. h/o PAF on chronic eliquis 21. h/o Multifocal MRSA pneumonia - 03/2018 22. prior Vancomycin toxicity with resulting acute kidney injury - 03/2018 23. dysphagia 24. history of orthostatic hypotension 25. GERD 26. hyperlipidemia 27. thrush - resolved Immunizations: Have You Had Influenza Vaccine: N/A Influenza Vaccine Date: Jun 18, 2012 History of Tetanus Vaccine?: Yes Tetanus Immunization Date: Mar 18, 2004 History of Pneumococcal: Yes Pneumococcal Date: May 31, 2010 History of Hepatitis B Vaccine: No Procedures: 1. LUE doppler ultrasound - negative for DVT. 2. video swallow exam - 1. Trace silent aspiration with thin liquids. 2. No significant cough reflex. 3. multiple chest x-rays 4. PRBCs x 2 units Consultations: pulmonary gastroenterology PT, OT, speech therapy Medication Reconciliation New Medications: Diclofenac Sod (Voltaren) 100 Appln/100 Gm Gel 1 APPLN EXT QID, #1 TUBE 2 Refills apply 4 grams to right shoulder Magnesium Oxide (Magnesium-Oxide) 400 Mg Tab 400 MG PO DAILY, #30 TAB 0 Refills Metoprolol Tartrate (Lopressor) 25 Mg Tab 12.5 MG PO BID for 30 Days, #60 TABS 11 Refills Nutritional Supplements (Boost) 1 Liq Liq 1 CAN PO BID, #60 CAN 5 Refills Nystatin (Nystatin) 5 Ml Susp 5 ML PO QID for 5 Days, #100 ML 0 Refills swish and spit Changed Medications: Albuterol Hfa (Ventolin Hfa) 200 Puffs/16069 Mcg Aers 2 PUFFS INH Q4H PRN for cough/wheeze/dyspnea, #1 INHALER (Changed from: 2-4 PUFFS; Q6H) Insulin Aspart (Novolog Flexpen) 100 Units/Ml Inj 0 UNITS SC AC for 30 Days, #1 PEN 2 Refills (Changed from: ACHS; Refills: ) sliding scale: for fingerstick blood sugar of 150-200 give 2 units, 201-250 give 4 units, 251-300 give 6 units, 301-350 give 8 units. greater than 350 give 10 units and call MD. Continued Medications: Acetaminophen (Tylenol Arthritis Ext Rel) 650 Mg Cplt 650 MG PO Q4 PRN for Pain, CAP Amiodarone HCl (Amiodarone HCl) 200 Mg Tab 200 MG PO DAILY for 30 Days, TAB Apixaban (Eliquis) 2.5 Mg Tab 2.5 MG PO BID for 30 Days, TAB Atorvastatin (Lipitor) 10 Mg Tab 1 TAB PO DAILY for 30 Days, #30 TAB 5 Refills Bisacodyl (Bisac-Evac) 10 Mg Supp 10 MG TX DAILY PRN for Constipation for 30 Days, SUPP Calcitriol (Calcitriol) 0.25 Mcg Cap 0.25 MCG PO DAILY TAKE WITH CALCIUM Calcium Carbonate (Calcium Carbonate) 1,250 Mg Tab 1 TAB PO QAM for 30 Days Cholecalciferol (D3-1000) 1,000 Unit Tab 1000 UNITS PO DAILY Citalopram Hydrobromide (Citalopram Hydrobromide) 20 Mg Tab 30 MG PO DAILY, TAB Cyanocobalamin (B-12) 1,000 Mcg Cap 1000 MCG PO QAM Gabapentin (Neurontin) 300 Mg Cap 300 MG PO HS for 30 Days, CAP Ipratropium-Albuterol (Duoneb) 3 Ml Nebu 1 TREATMENT INH QID, INHA Levothyroxine Sodium (Levothyroxine Sodium) 100 Mcg Tab 100 MCG PO DAILY, TAB Linaclotide (Linzess) 290 Mcg Cap 290 MCG PO DAILY for 30 Days Melatonin (Melatonin) 10 Mg Tab 10 MG PO HS Midodrine (Midodrine HCl) 2.5 Mg Tab 2.5 MG PO TID@08,12,17 for 30 Days, #90 TAB 11 Refills (This prescription has been renewed) Multiple Vitamins W/ Minerals (Multivitamin) 1 Liq Liq 15 ML PO QAM for 30 Days Pantoprazole (Protonix) 40 Mg Tab 1 TAB PO DAILY for 30 Days, #30 TAB 3 Refills Polyethylene (Miralax) 17 Gm Pow 17 GM PO DAILY for 30 Days, #1 BTL 11 Refills (This prescription has been renewed) Polyethylene Glycol-Propylene (Systane Ultra) 1 Renetta Renetta 1 DROPS OP QID, #30 ML 4 Refills Prednisone (Prednisone) 20 Mg Tab 20 MG PO QAM for 30 Days, TAB indefinitely until tapered down by Pulmonology Riboflavin (Riboflavin) 400 Mg Tab 400 MG PO QAM Ropinirole Hydrochloride (Requip) 0.5 Mg Tab 0.5 MG PO HS TAKE 2 HR BEFORE HS Sennosides-Docusate Sodium (Senokot S) 1 Tab Tab 1 TAB PO BID for 30 Days, TAB Tramadol (Ultram) 50 Mg Tab 1 TAB PO TID PRN for Pain for 30 Days, #90 TAB 0 Refills (This prescription has been renewed) Discontinued Medications: Dexlansoprazole (Dexilant) 60 Mg Cap 60 MG PO QAM Gabapentin (Gabapentin) 100 Mg Cap 200 MG PO QAM for 30 Days, CAP Magnesium Hydroxide (Milk Of Magnesia) 30 Ml Susp 30 ML PO, ML Potassium Chloride (Klor-Con M20) 20 Meq Tabcr 20 MEQ PO QAM for 30 Days Simvastatin (Zocor) 20 Mg Tab 20 MG PO HS, TAB Sucralfate (Carafate) 1 Gm/10 Ml Nicole 10 ML PO QID [Boost Plus Vanilla] () 1 CAN LIQD 0.5 CAN PO QID for 30 Days Discharge Exam Physical Exam: General Appearance: no apparent distress, + pertinent finding (cushingnoid appearance) ENT: pharynx normal (thrush resolved) Neck: no JVD, + pertinent finding (trach clean, no drainage) Respiratory/Chest: no respiratory distress, no accessory muscle use, + decreased breath sounds (right base), + rales (fine, scant, bases) Cardiovascular: regular rate, rhythm, no gallop, no murmur, normal peripheral pulses Abdomen / GI: normal bowel sounds, non tender, no organomegaly, + distended (mild - chronic ) Extremities: no pedal edema Neurologic/Psychiatric: alert, oriented x 3 Skin: no rash, + pertinent finding (right arm PICC clean; mild ecchymoses on arms, legs; left arm swelling resolved ) Hospital Course HISTORY OF PRESENT ILLNESS: Patient is an 83yo female with complicated past medical history and a recent prolonged hospital admission from 03/15 - 04/17 for MRSA pneumonia. Patient had tracheostomy placed during that admission. Discharged to [facility] inpatient rehab. Per report, patient was eating peaches yesterday when one got stuck in her throat and she began coughing. No respiratory distress noted at the time. However, patient developed tachypnea and difficulty breathing this AM. Patient's daughter was called and she was transported to [facility]. Patient presently complaining of chest pain and rib pain when she coughs. No additional complaints at present. No increase in secretions of suctioning needs, no increase in O2 requirement. Patient is on 6L via trach collar. Deep suctioned in the ER with small amount of thick secretions. Non-purulent, non-bloody. HOSPITAL COURSE: 1. acute/chronic hypoxic respiratory failure - acute component was 2nd to COPD exacerbation and pseudomonas pneumonia/aspiration pneumonia. She completed a full course of IV/PO antibiotics and IV/PO steroids. CXR 05/05/18 showed improved airspace opacities and no new infiltrates in comparison to her admission CXR. She will continue on her chronic prednisone dose of 20mg once daily. At time of discharge the patient had stable o2 sats with NO supplemental o2. 2. sepsis 2nd to RLL pneumonia and UTI - resolved with treatment of both infectious sources. 3. paroxysmal a. fib - she remained in NSR during her entire stay. She will continue on low-dose metoprolol and amiodarone to maintain NSR. She remains on eliquis for anticoagulation. 4. dysphagia with aspiration - she was evaluated by speech therapy and video swallow was completed showing silent aspiration of thin liquids. No plans for PEG at patient request (has been consistent for several hospital admissions NOT wanting PEG). Remains on pureed diet and nectar thick liquids. 5. acute/chronic anemia - s/p 2 units PRBCs this stay. H/H stable since then. Discharge hemoglobin was 10.8 which is about baseline. 6. UTI - 2nd to proteus/citrobacter. Repeat urine culture later in her stay was negative. 7. encephalopathy - resolved. The patient would have 2-3 days at a time of normal mental status, then would have a day of being very sleepy with her eyes closed. During these episodes she appeared to be constantly chewing/moving her jaw but while doing so could talk, answer questions, and would be oriented x 3. The etiology of these days when she was sleepy/lethargic was uncertain. There was never any seizure activity. We repeated cultures, blood gases, and other causes of encephalopathy and full work-up was negative. Hospital psychosis? Psychiatric in nature? Other? Of note - patient denied being depressed throughout her stay but her affect was consistently flat and most caregivers feel she is depressed. Consider titration of her SSRI or adding an additional agent. 8. protein calorie malnutrition, moderate-severe - the patient lost weight in the hospital and despite supplements & encouraging PO intake her appetite on many days was poor. This has been an ongoing issue for some time and could easily be related to ongoing depression. Again she has refused PEG tube currently & in the past. 9. COPD with exacerbation - flare resolved, remains on chronic prednisone dose of 20mg/day. 10. hypothyroidism - compensated with most recent TSH wnl; continue synthroid. 11. T2DM - controlled throughout her stay. 12. chronic diastolic CHF - compensated her entire stay. 13. depression - remains on celexa. Could consider increase to 40mg/day. Consider counseling once at [facility] [place]. 14. chronic constipation - continue bowel regimen. On physical exam she always has a mild amount of distension related to chronic constipation/ "institutional bowel" but there is no ileus/obstruction. 15. right shoulder pain - this is a chronic complaint; x-rays of right shoulder were stable with intact hardware from prior surgery. She will continue voltaren gel QID. 16. social - the patient made herself a DNR. Dr. Sydnee Lockwood from the hospitalist team had a POLST discussion with Ms. Philip and at time of discharge she is a "comfort measures" in the event she was to have a significant worsening in her health in the future. See formal POLST form for additional information. Of note - throughout multiple hospital stays Ms. Philip and her daughter have had a difference in opinion in her care plan. Her daughter has voiced a desire for more aggressive care at times which differs from the wishes of Ms. Clouser. Ongoing palliative care discussions are encouraged. There is agreement, however, that a PEG tube is NOT wanted at any time if nutrition continues to fail. 17. severe deconditioning/steroid myopathy - transferring to [facility] for attempts at rehab. Total Time Spent: Greater than 30 minutes This includes examination of the patient, discharge planning, medication reconciliation, and communication with other providers. Discharge Instructions Please refer to the electronic Patient Visit Report (Discharge Instructions) for additional information. Follow-Up 1. lighting director of SNF within [address] Omid Sandoval or one of the [facility] pulmonary office physician assistants within 1 week if possible Additional Copies To Omid Sandoval DO; [facility]; Michael De Souza M.D.; Jatinder Guzman M.D.; Chad Khalil MD
== END 2018-05-08 15:30 | DRG 871 ==
LOC: EDBD 10:48 → C.EDA 10:49 → C.2E 13:47 → ENRESERV 14:09
PROVIDERS: ADMIT Internal Medicine; ATTEND Internal Medicine
DX: A41.52 Sepsis due to Pseudomonas (principal); J69.0 Pneumonitis due to inhalation of food and vomit; J44.1 Chronic obstructive pulmonary disease with (acute) exacerbation; J44.0 Chronic obstructive pulmonary disease with (acute) lower respiratory infection; K62.5 Hemorrhage of anus and rectum; J96.21 Acute and chronic respiratory failure with hypoxia; J15.1 Pneumonia due to Pseudomonas; N18.3 Chronic kidney disease, stage 3 (moderate); E11.9 Type 2 diabetes mellitus without complications; Z86.718 Personal history of other venous thrombosis and embolism; N39.0 Urinary tract infection, site not specified; I50.32 Chronic diastolic (congestive) heart failure; G72.0 Drug-induced myopathy; G93.41 Metabolic encephalopathy; T38.0X5A Adverse effect of glucocorticoids and synthetic analogues, initial encounter; E66.2 Morbid (severe) obesity with alveolar hypoventilation; Y92.009 Unspecified place in unspecified non-institutional (private) residence as the place of occurrence of the external cause; F32.9 Major depressive disorder, single episode, unspecified; G25.81 Restless legs syndrome; Z93.0 Tracheostomy status; E03.9 Hypothyroidism, unspecified; I48.91 Unspecified atrial fibrillation; Z88.6 Allergy status to analgesic agent; Z88.2 Allergy status to sulfonamides; Z88.5 Allergy status to narcotic agent; R13.10 Dysphagia, unspecified; E83.51 Hypocalcemia; K21.9 Gastro-esophageal reflux disease without esophagitis; Z79.52 Long term (current) use of systemic steroids; B96.4 Proteus (mirabilis) (morganii) as the cause of diseases classified elsewhere; D50.9 Iron deficiency anemia, unspecified; I48.0 Paroxysmal atrial fibrillation; E78.5 Hyperlipidemia, unspecified; K59.00 Constipation, unspecified; E87.6 Hypokalemia; K64.9 Unspecified hemorrhoids

== ENCOUNTER 2018-07-23 18:19 | Inpatient (IN) ==
[2018-07-23] MEDS ORDERED: SODIUM CHLORIDE 0.9% 1000ML 250 ML IV ONE (19:11)
--- NOTE | 2018-07-23 19:17 | Emergency Department Note ---
ED Visit Note I assisted Dr. Schwarz in the care of this patient. [employer] PGY-2 Resident Activity Tracking Resident Involvement: Resident Care Provided Care Provided: Adult ED
--- NOTE | 2018-07-23 19:42 | XRay Report ---
XR chest 1V portable HISTORY: 83 years-old Female Sepsis acute sepsis COMPARISON: Chest radiograph 07/04/2018 TECHNIQUE: Portable AP view of the chest FINDINGS: Patient is side bent towards the right. Cardiac silhouette is mildly enlarged, unchanged. Calcificati on of the thoracic aortic arch. Tracheostomy cannula overlies the midline at the level of the clavicu lar heads. Linear subsegmental right perihilar and bibasilar opacities are noted with blunting of the costophrenic angles. No pneumothorax. Degenerative changes of the spine with bilateral shoulder arth roplasties. Extensive joe and screw fusion hardware of the thoracolumbar spine and cervical spine. Amaya rgical clips project over the abdominal right upper quadrant. IMPRESSION: 1. Cardiomegaly without overt pulmonary edema. 2. Right perihilar and bibasilar linear subsegmental consolidative opacities redemonstrated suggestin g atelectasis and/or scarring. 3. Blunting of the costophrenic angles may be secondary to atelectasis versus trace effusions. The above report was generated using voice recognition software. It may contain grammatical, syntax o r spelling errors. Electronically signed by: Rey Campos M.D. 07/23/2018 7:40 PM
[2018-07-23 20:00] LABS: Basophils # (auto) 0.03 K/uL (0-0.2); Basophils % (auto) 0.3 %; Eosinophils # (auto) 0.05 K/uL (0-0.5); Eosinophils % (auto) 0.4 %; Hematocrit (blood only) 44.7 % (37-47); Hemoglobin 13.8 g/dL (12.0-16.0); Immature Granulocytes # (auto) 0.08 K/uL (0.00-0.02); Immature Granulocytes % (auto) 0.7 %; Lymphocytes % (auto) 13.9 %; Mean Corpuscular Hgb Conc 30.9 g/dL (32-36); Mean Platelet Volume 13.2 fL (7.4-10.4); Monocytes # (auto) 0.85 K/uL (0.11-0.59); Monocytes % (auto) 7.4 %; Neutrophils % (auto) 77.3 %; Nucleated RBC # (auto) 0.12 K/uL (0-0); Platelet Count 220 K/uL (130-400); RDW Standard Deviation 64.9 fL (36.4-46.3); Red Blood Count 4.56 M/uL (4.2-5.4); White Blood Count 11.51 K/uL (4.8-10.8)
[2018-07-23 20:22] LABS: INR 1.5 (0.9-1.1); Partial Thromboplastin Ratio 1.7; Partial Thromboplastin Time 42.9 Seconds (21.0-31.0); Prothrombin Time 15.5 Seconds (9.0-12.0)
[2018-07-23 20:31] LABS: Alanine Aminotransferase 22 U/L (12-78); Albumin Globulin Ratio 0.5 (0.9-2); Albumin Level 2.4 gm/dl (3.4-5.0); Alkaline Phosphatase 171 U/L (45-117); Aspartate Aminotransferase 35 U/L (15-37); BUN Creatinine Ratio 19.3 (10-20); Bilirubin,Total 0.9 mg/dl (0.1-1); Blood Urea Nitrogen 40 mg/dl (7-18); Calcium 8.9 mg/dl (8.5-10.1); Carbon Dioxide 26 mmol/L (21-32); Chloride 122 mmol/L (98-107); Creatinine Clr Calc Pharmacy 18.3 ml/min; Est GFR (African American) 25.4; Est GFR (Non-African American) 21.9; Globulin 4.4 gm/dl (2.5-4.0); Glucose 137 mg/dl (70-99); Potassium 3.5 mmol/L (3.5-5.1); Sodium 158 mmol/L (136-145); Total Protein 6.8 gm/dl (6.4-8.2); Troponin I < 0.015 ng/ml (0-0.045)
[2018-07-23] MEDS ORDERED: SODIUM CHLORIDE 0.9% 1000ML 500 ML IV ONE (20:49)
[2018-07-23 22:33] LABS: Appearance Urine Turbid (Clear); Bacteria Urine Automated Negative (Negative); Color Urine Dark Yellow; Epithelial Cell Urine Auto >30 /lpf (0-5); Glucose Urine UA Negative (Negative); Ketones Urine Trace (Negative); Leukocyte Esterase Urine 1+ (Negative); Nitrite Urine Positive (Negative); Protein Urine 1+ (Negative); Specific Gravity Urine 1.025 (1.000-1.030); Urobilinogen Urine Negative (Negative); WBC Urine Automated >30 /hpf (0-5)
[2018-07-23 22:52] LABS: Bilirubin Urine Negative (Negative); Ictotest Urine Negative (Negative)
[2018-07-23 23:00] LABS: Renal Epithelial Cells Urine 0-5 /lpf (0-5); Uric Acid Crystals Urine Present (None Prsent)
--- NOTE | 2018-07-23 23:40 | History & Physical Report ---
Date of Service July 23, 2018 Assessment & Plan (1) Hemoptysis: Bloody secretions noted on suction. Slightly increased O2 requirement per daughter. No PNA noted on CXR. Patient HD stable. Hg of 13.8. Possibly secondary to irritation from trach cuff vs mucosal dryness. * Admit with continuous pulse oximetry * Trach collar with humidified O2 * Pulmonary consult - appreciate assistance * (2) MANJULA (acute kidney injury): BUN=40, Cr=2.07. Patient with baseline CKD III. Most likely secondary to prerenal azotemia, poor po intake and dehydration * IVF with LR at 100mL/hr x 2 liters * Monitor BUN, Cr, electrolytes and acid/base status * Avoid nephrotoxic agents * Renal dosing where appropirate * Continue Calcitriol * (3) Hypernatremia: Uf=853. Most likely secondary to dehydration * LR as above * Continue to monitor electrolytes * (4) Atrial fibrillation: Rate controlled at present. No anticoagulation. * Continue Amiodarone * Hold Apixaban * Continue to monitor * (5) Hypothyroidism: Stable. Chronic * Continue Synthroid (6) Chronic diastolic CHF (congestive heart failure): No overt evidence of volume overload * Continue Metoprolol * Continue to monitor * (7) UTI (urinary tract infection): Afebrile. HD stable at present. * Urine culture * Ceftriaxone 1gm IV daily * Continue to monitor * (8) Chronic kidney disease, stage III (moderate): As above (9) Depression: Stable. Chronic * Conitnue Celexa daily (10) Orthostatic hypotension: Continue Midodrine (11) GERD (gastroesophageal reflux disease): Conitnue Sucralfate History of Present Illness Chief Complaint: fatigue Primary Care Provider: Emilio De Souza MD Patient is an 83yo female with multiple medical problems to include AF, GERD, s/ p tracheostomy on trach collar, CKD III, chronic diastolic CHF. She was recently admitted in early May with acute hypoxic respiratory failure secondary to RLL PNA. She was discharged to [facility] and then home. She presents today with her daughter with complaints of not feeling well, increase in fatigue and decreased responsiveness. She was coughing up thick, brown secretions over the weekend which changed to bright red blood today - noted on deep suction. Daughter also reports increase in patient's heart rate over the weekend to 110's. No additional complaints. Daughter reports that the patient has a cuffed tracheostomy tube in place but the cuff has been deflated. Er Course: NSS x 750mL Allergies Allergy/AdvReac Type Severity Reaction Status Date / Time adhesive Allergy Severe TAPE-REDNESS, Verified 03/19/18 10:33 BLISTERS pneumococcal vaccine Allergy Severe SHORTNESS Verified 03/19/18 10:33 OF BREATH phenazopyridine Allergy Intermediate abdominal Verified 03/19/18 10:33 pain/rash erythromycin base Allergy Mild RASH Verified 03/19/18 10:33 metronidazole Allergy Mild skin rash Verified 07/23/18 22:10 salicylates Allergy Unknown pt states Verified 03/19/18 10:33 rash with ASA 325 but not ASA 81mg Sulfa (Sulfonamide Allergy Unknown ON MED LIST Verified 03/19/18 10:33 Antibiotics) tetracycline Allergy Unknown RASH Verified 03/19/18 10:33 morphine AdvReac Intermediate urinary Verified 03/19/18 10:33 retention -oral morphine only diltiazem AdvReac Mild FLUID Verified 03/19/18 10:33 RETENTION metoclopramide AdvReac Mild TREMORS Verified 03/19/18 10:33 bacitracin AdvReac Unknown "MAKES IT Verified 03/19/18 10:33 WORSE"-OK IF NOT OTC MEDICATION Home Medications Home Medications Medication Instructions Recorded Confirmed Type acetaminophen 325 mg capsule 650 mg PO BID PRN cap 05/25/18 07/23/18 History amiodarone 200 mg tablet 200 mg PO DAILY 05/25/18 07/23/18 History bisacodyl 10 mg rectal suppository 10 mg HI .q24 PRN ea 05/25/18 07/23/18 History calcitriol 0.25 mcg capsule 0.25 mcg PO DAILY cap 05/25/18 07/23/18 History cholecalciferol (vitamin D3) 2,000 2,000 units PO DAILY 05/25/18 07/23/18 History unit capsule citalopram 20 mg tablet 30 mg PO DAILY tab 05/25/18 07/23/18 History dexlansoprazole 60 mg 60 mg PO DAILY 05/25/18 07/23/18 History capsule,biphase delayed release diclofenac 1 % topical gel 2 gm TOPICAL QID 05/25/18 07/23/18 History gabapentin 300 mg capsule 300 mg PO QPM 05/25/18 07/23/18 History ipratropium-albuterol 0.5 mg-3 3 ml INHALATION QID 05/25/18 07/23/18 History mg(2.5 mg base)/3 mL nebulization soln levothyroxine 100 mcg capsule 100 mcg PO DAILY 05/25/18 07/23/18 History linaclotide 290 mcg capsule 290 mcg PO DAILY 05/25/18 07/23/18 History mecobalamin (vitamin B12) 1,000 1,000 mcg SL DAILY 05/25/18 07/23/18 History mcg disintegrating tablet,sublingual melatonin 10 mg capsule 10 mg PO HS cap 05/25/18 07/23/18 History metoprolol succinate ER 25 mg 25 mg PO BID tab 05/25/18 07/23/18 History tablet,extended release 24 hr multivit and minerals-ferrous 15 ml PO DAILY 05/25/18 07/23/18 History gluconate 9 mg iron/15 mL oral liquid peg 400-propylene glycol (PF) 0.4 1 drops OP Q6H PRN 05/25/18 07/23/18 History %-0.3 % eye drops in a dropperette polyethylene glycol 3350 17 1 packet PO Q48H PRN gm 05/25/18 07/23/18 History gram/dose oral powder riboflavin (vitamin B2) 400 mg 400 mg PO DAILY 05/25/18 07/23/18 History tablet ropinirole 0.5 mg tablet 0.5 mg PO HS tab 05/25/18 07/23/18 History sennosides 8.6 mg tablet 8.6 mg PO BID PRN 05/25/18 07/23/18 History tramadol 50 mg tablet 50 mg PO Q6H tab 05/25/18 07/23/18 History guaifenesin [Mucinex] 1,200 mg PO Q12H PRN 07/04/18 07/23/18 History lorazepam 0.5 mg PO Q6H PRN 07/04/18 07/23/18 History midodrine 2.5 mg PO TID 07/04/18 07/23/18 History nystatin 5 ml PO QID 07/04/18 07/23/18 History potassium chloride 10 meq PO DAILY 07/04/18 07/23/18 History sucralfate [Carafate] 10 ml PO QID 07/04/18 07/23/18 History apixaban [Eliquis] 5 mg PO BID 07/23/18 07/23/18 History ferrous sulfate [iron] 325 mg PO DAILY PRN 07/23/18 07/23/18 History spironolactone 25 mg PO BID 07/23/18 07/23/18 History Past Med/Surg History Medical History Hemoptysis Severe protein-calorie malnutrition (Chronic) Hypothyroidism (Chronic) Chronic diastolic CHF (congestive heart failure) (Chronic) Chronic kidney disease, stage III (moderate) (Chronic) Steroid-dependent COPD (Chronic) Depression (Chronic) Orthostatic hypotension (Chronic) GERD (gastroesophageal reflux disease) (Chronic) Ambulatory dysfunction (Chronic) Atrial fibrillation Tracheostomy in place 03/15/[address] Family History Other Medical history non-contributory Social History marital status: / Current Living Situation: Family Other Information That Helps Us Care for You: No Feels Safe at Home: Yes Smoking Status: Never smoker Hx Alcohol Use: No Hx Substance Use: No Beliefs That Will Affect Care: None Communication Ability: Effective Review of Systems Unobtainable due to cognitive status Physical Exam 2 Vital Signs (Past 24 Hours): Last Vital Signs Temp 36.9 C 07/23/18 18:45 Pulse 76 07/23/18 22:30 Resp 16 07/23/18 22:30 BP 115/73 07/23/18 22:30 Pulse Ox 98 07/23/18 22:30 Physical Exam: General: patient resting comfortably, NAD, chronically ill in appearance, does not follow commands, does not answer questions Skin: warm, dry, intact, no rashes or lesions HEENT: NC/AT, PERRL, anicteric sclera, conjunctiva without injection, external ear normal to inspection and nontender, nares patent, dry mucus membranes with dried blood present on the oral mucosa, dentition intact, no oropharyngeal lesions, neck supple, trachea midline, tracheostomy in place, no bleeding at trach site, +small amount of skin breakdown at tracheostomy site, no LAD, no thyromegaly, no JVD Heart: +S1/S2, regular, no m/r/g Lungs: CTA anteriorly, no rales/rhonchi/wheezes Abd: +BS, soft, diffusely tender with deep palpation, no rebound/guarding/ peritoneal signs Ext: warm, 2+ pulses in UE/LE bilaterally, no clubbing/cyanosis or edema Neuro: patient does not follow commands or provide verbal response, withdraws four extremities from painful stimuli Results & Data Laboratory Results Lab Results 07/23/18 07/23/18 07/23/18 Range/Units 19:31 19:31 19:31 WBC 11.51 H (4.8-10.8) K/uL RBC 4.56 (4.2-5.4) M/uL Hgb 13.8 (12.0-16.0) g/dL Hct 44.7 (37-47) % MCV 98.0 (80-100) fL MCH 30.3 (25-34) pg MCHC 30.9 L (32-36) g/dL RDW Std Deviation 64.9 H (36.4-46.3) fL RDW Coeff of Cem 18.0 H (11.5-14.5) % Plt Count 220 (130-400) K/uL MPV 13.2 H (7.4-10.4) fL Immature Gran % (Auto) 0.7 % Neut % (Auto) 77.3 % Lymph % (Auto) 13.9 % [place] % (Auto) 7.4 % Eos % (Auto) 0.4 % Baso % (Auto) 0.3 % Immature Gran # (Auto) 0.08 H (0.00-0.02) K/uL Neut # (Auto) 8.90 H (1.4-6.5) K/uL Lymph # (Auto) 1.60 (1.2-3.4) K/uL [place] # (Auto) 0.85 H (0.11-0.59) K/uL Eos # (Auto) 0.05 (0-0.5) K/uL Baso # (Auto) 0.03 (0-0.2) K/uL Absolute Nucleated RBC 0.12 H (0-0) K/uL Nucleated RBC % (auto) 1.0 % PT 15.5 H (9.0-12.0) Seconds INR 1.5 H (0.9-1.1) APTT 42.9 H (21.0-31.0) Seconds PTT Ratio 1.7 Sodium 158 H* (136-145) mmol/L Potassium 3.5 (3.5-5.1) mmol/L Chloride 122 H (98-107) mmol/L Carbon Dioxide 26 (21-32) mmol/L Anion Gap 12.0 H (3-11) BUN 40 H (7-18) mg/dl Creatinine 2.07 H (0.6-1.2) mg/dl Est Cr Clr Drug Dosing 18.3 ml/min Est GFR ( Amer) 25.4 Est GFR (Non-Af Amer) 21.9 BUN/Creatinine Ratio 19.3 (10-20) Glucose 137 H (70-99) mg/dl Lactate (0.4-2.0) mmol/L Calcium 8.9 (8.5-10.1) mg/dl Phosphorus 3.2 (2.5-4.9) mg/dl Magnesium 2.9 H (1.8-2.4) mg/dl Total Bilirubin 0.9 (0.1-1) mg/dl AST 35 (15-37) U/L ALT 22 (12-78) U/L Alkaline Phosphatase 171 H (45-117) U/L Troponin I < 0.015 (0-0.045) ng/ml Total Protein 6.8 (6.4-8.2) gm/dl Albumin 2.4 L (3.4-5.0) gm/dl Globulin 4.4 H (2.5-4.0) gm/dl Albumin/Globulin Ratio 0.5 L (0.9-2) Procalcitonin (0-0.5) ng/ml Urine Color Urine Appearance (Clear) Urine pH (4.5-7.5) Ur Specific [place] (1.000-1.030) Urine Protein (Negative) Urine Glucose (UA) (Negative) Urine Ketones (Negative) Urine Blood (Negative) Urine Nitrite (Negative) Urine Bilirubin (Negative) Urine Urobilinogen (Negative) Ur Leukocyte Esterase (Negative) Urine WBC (Auto) (0-5) /hpf Urine RBC (Auto) (0-4) /hpf U Hyaline Cast (Auto) (0-5) /lpf U Epithel Cells (Auto) (0-5) /lpf Urine Bacteria (Auto) (Negative) Ur Renal Epithelial Cell (0-5) /lpf Uric Acid Crystals (None Prsent) Granular Casts (0) /lpf Urine Yeast (None Prsent) Blood Type Antibody Screen 07/23/18 07/23/18 07/23/18 Range/Units 19:31 19:31 19:41 WBC (4.8-10.8) K/uL RBC (4.2-5.4) M/uL Hgb (12.0-16.0) g/dL Hct (37-47) % MCV (80-100) fL MCH (25-34) pg MCHC (32-36) g/dL RDW Std Deviation (36.4-46.3) fL RDW Coeff of Cem (11.5-14.5) % Plt Count (130-400) K/uL MPV (7.4-10.4) fL Immature Gran % (Auto) % Neut % (Auto) % Lymph % (Auto) % [place] % (Auto) % Eos % (Auto) % Baso % (Auto) % Immature Gran # (Auto) (0.00-0.02) K/uL Neut # (Auto) (1.4-6.5) K/uL Lymph # (Auto) (1.2-3.4) K/uL [place] # (Auto) (0.11-0.59) K/uL Eos # (Auto) (0-0.5) K/uL Baso # (Auto) (0-0.2) K/uL Absolute Nucleated RBC (0-0) K/uL Nucleated RBC % (auto) % PT (9.0-12.0) Seconds INR (0.9-1.1) APTT (21.0-31.0) Seconds PTT Ratio Sodium (136-145) mmol/L Potassium (3.5-5.1) mmol/L Chloride (98-107) mmol/L Carbon Dioxide (21-32) mmol/L Anion Gap (3-11) BUN (7-18) mg/dl Creatinine (0.6-1.2) mg/dl Est Cr Clr Drug Dosing ml/min Est GFR ( Amer) Est GFR (Non-Af Amer) BUN/Creatinine Ratio (10-20) Glucose (70-99) mg/dl Lactate 2.3 H* (0.4-2.0) mmol/L Calcium (8.5-10.1) mg/dl Phosphorus (2.5-4.9) mg/dl Magnesium (1.8-2.4) mg/dl Total Bilirubin (0.1-1) mg/dl AST (15-37) U/L ALT (12-78) U/L Alkaline Phosphatase (45-117) U/L Troponin I (0-0.045) ng/ml Total Protein (6.4-8.2) gm/dl Albumin (3.4-5.0) gm/dl Globulin (2.5-4.0) gm/dl Albumin/Globulin Ratio (0.9-2) Procalcitonin 0.48 (0-0.5) ng/ml Urine Color Urine Appearance (Clear) Urine pH (4.5-7.5) Ur Specific [place] (1.000-1.030) Urine Protein (Negative) Urine Glucose (UA) (Negative) Urine Ketones (Negative) Urine Blood (Negative) Urine Nitrite (Negative) Urine Bilirubin (Negative) Urine Urobilinogen (Negative) Ur Leukocyte Esterase (Negative) Urine WBC (Auto) (0-5) /hpf Urine RBC (Auto) (0-4) /hpf U Hyaline Cast (Auto) (0-5) /lpf U Epithel Cells (Auto) (0-5) /lpf Urine Bacteria (Auto) (Negative) Ur Renal Epithelial Cell (0-5) /lpf Uric Acid Crystals (None Prsent) Granular Casts (0) /lpf Urine Yeast (None Prsent) Blood Type A Positive Antibody Screen NEGATIVE 07/23/18 Range/Units 21:14 WBC (4.8-10.8) K/uL RBC (4.2-5.4) M/uL Hgb (12.0-16.0) g/dL Hct (37-47) % MCV (80-100) fL MCH (25-34) pg MCHC (32-36) g/dL RDW Std Deviation (36.4-46.3) fL RDW Coeff of Cem (11.5-14.5) % Plt Count (130-400) K/uL MPV (7.4-10.4) fL Immature Gran % (Auto) % Neut % (Auto) % Lymph % (Auto) % [place] % (Auto) % Eos % (Auto) % Baso % (Auto) % Immature Gran # (Auto) (0.00-0.02) K/uL Neut # (Auto) (1.4-6.5) K/uL Lymph # (Auto) (1.2-3.4) K/uL [place] # (Auto) (0.11-0.59) K/uL Eos # (Auto) (0-0.5) K/uL Baso # (Auto) (0-0.2) K/uL Absolute Nucleated RBC (0-0) K/uL Nucleated RBC % (auto) % PT (9.0-12.0) Seconds INR (0.9-1.1) APTT (21.0-31.0) Seconds PTT Ratio Sodium (136-145) mmol/L Potassium (3.5-5.1) mmol/L Chloride (98-107) mmol/L Carbon Dioxide (21-32) mmol/L Anion Gap (3-11) BUN (7-18) mg/dl Creatinine (0.6-1.2) mg/dl Est Cr Clr Drug Dosing ml/min Est GFR ( Amer) Est GFR (Non-Af Amer) BUN/Creatinine Ratio (10-20) Glucose (70-99) mg/dl Lactate (0.4-2.0) mmol/L Calcium (8.5-10.1) mg/dl Phosphorus (2.5-4.9) mg/dl Magnesium (1.8-2.4) mg/dl Total Bilirubin (0.1-1) mg/dl AST (15-37) U/L ALT (12-78) U/L Alkaline Phosphatase (45-117) U/L Troponin I (0-0.045) ng/ml Total Protein (6.4-8.2) gm/dl Albumin (3.4-5.0) gm/dl Globulin (2.5-4.0) gm/dl Albumin/Globulin Ratio (0.9-2) Procalcitonin (0-0.5) ng/ml Urine Color Dark Yellow Urine Appearance Turbid H (Clear) Urine pH 5.0 (4.5-7.5) Ur Specific [place] 1.025 (1.000-1.030) Urine Protein 1+ H (Negative) Urine Glucose (UA) Negative (Negative) Urine Ketones Trace H (Negative) Urine Blood Trace H (Negative) Urine Nitrite Positive H (Negative) Urine Bilirubin Negative (Negative) Urine Urobilinogen Negative (Negative) Ur Leukocyte Esterase 1+ H (Negative) Urine WBC (Auto) >30 H (0-5) /hpf Urine RBC (Auto) 0-4 (0-4) /hpf U Hyaline Cast (Auto) 5-10 H (0-5) /lpf U Epithel Cells (Auto) >30 H (0-5) /lpf Urine Bacteria (Auto) Negative (Negative) Ur Renal Epithelial Cell 0-5 (0-5) /lpf Uric Acid Crystals Present H (None Prsent) Granular Casts 1-5 H (0) /lpf Urine Yeast Budding w/ Hyphae H (None Prsent) Blood Type Antibody Screen Diagnostic Findings XR chest 1V portable HISTORY: 83 years-old Female Sepsis acute sepsis COMPARISON: Chest radiograph 07/04/2018 TECHNIQUE: Portable AP view of the chest FINDINGS: Patient is side bent towards the right. Cardiac silhouette is mildly enlarged, unchanged. Calcification of the thoracic aortic arch. Tracheostomy cannula overlies the midline at the level of the clavicular heads. Linear subsegmental right perihilar and bibasilar opacities are noted with blunting of the costophrenic angles. No pneumothorax. Degenerative changes of the spine with bilateral shoulder arthroplasties. Extensive joe and screw fusion hardware of the thoracolumbar spine and cervical spine. Surgical clips project over the abdominal right upper quadrant. IMPRESSION: 1. Cardiomegaly without overt pulmonary edema. 2. Right perihilar and bibasilar linear subsegmental consolidative opacities redemonstrated suggesting atelectasis and/or scarring. 3. Blunting of the costophrenic angles may be secondary to atelectasis versus trace effusions. The above report was generated using voice recognition software. It may contain grammatical, syntax or spelling errors. Electronically signed by: Rey Campos M.D. 07/23/2018 7:40 PM ECG Additional Comments: NSR, 94bpm, normal axis, AZ=528, QRS=80, Vqv=325, TW inversions in anterior and lateral leads new from prior Code Status & VTE Plan Code Status Full code Per review of prior records patient was initially DNR/DNI after Palliative care assessment. Noted that patient stated that she did not wish to have multiple hospital admissions. Patient's daughter states that after the last hospitalization the patient changed her mind and now wishes to be full code. Daughter also states that she does not want any health care provider discussing her mother's code status with her unless she (daughter) is in the room due to the concern that her mother will become upset. Critical Care Time Critical Care Time: No _ (1) UTI (urinary tract infection) Hematuria presence: without hematuria Urinary tract infection type: acute cystitis Qualified Code(s): N30.00 - Acute cystitis without hematuria (2) Atrial fibrillation Atrial fibrillation type: chronic Qualified Code(s): I48.2 - Chronic atrial fibrillation (3) Depression Active/Remission status: currently active Depression Type: major depressive disorder Major depression episode severity: moderate Major depression recurrence: unspecified whether recurrent Psychotic features: Trimester: Qualified Code(s): F32.1 - Major depressive disorder, single episode, moderate (4) Hypothyroidism Hypothyroidism type: acquired Qualified Code(s): E03.9 - Hypothyroidism, unspecified (5) GERD (gastroesophageal reflux disease) Esophagitis presence: without esophagitis Qualified Code(s): K21.9 - Gastro- esophageal reflux disease without esophagitis
--- NOTE | 2018-07-24 00:51 | Emergency Department Note ---
Entered by Ashley Escamilla acting as a scribe for History of Present Illness General Chief complaint: Other Complaint Stated complaint: BLEEDING FROM TRACH Time Seen by Provider: 07/23/18 18:27 Source: family (Daughter) History of Present Illness Onset (ago): hour(s) ([place] to arrival.) Location: neck Severity: similar to prior episodes Pain Consistency: + other (episode) Quality: + other (loose tracheal tube) Associated symptoms: + cough; no fever/chills The patient is a 83 year old female who presents to the Emergency Room with complaints of episode of loose tracheal tube [employer]. The patients daughter reports that the patient was home and noticed blood around the patients tracheal tube. She states that the patient had the tube placed on March 24, 2018. She adds that the patients tracheal tube has come loose before while the patient was at [facility] and the patient did come into the hospital for it to be fixed. The patients mother reports that the patient has been coughing more than usual. She denies that the patient has had a fever. She reports that the patient does take Eliquis. The HPI and ROS are limited due to AMS. Home Medications Home Medications Medication Instructions Recorded Confirmed Type acetaminophen 325 mg capsule 650 mg PO BID PRN cap 05/25/18 07/23/18 History amiodarone 200 mg tablet 200 mg PO DAILY 05/25/18 07/23/18 History bisacodyl 10 mg rectal suppository 10 mg SC .q24 PRN ea 05/25/18 07/23/18 History calcitriol 0.25 mcg capsule 0.25 mcg PO DAILY cap 05/25/18 07/23/18 History cholecalciferol (vitamin D3) 2,000 2,000 units PO DAILY 05/25/18 07/23/18 History unit capsule citalopram 20 mg tablet 30 mg PO DAILY tab 05/25/18 07/23/18 History dexlansoprazole 60 mg 60 mg PO DAILY 05/25/18 07/23/18 History capsule,biphase delayed release diclofenac 1 % topical gel 2 gm TOPICAL QID 05/25/18 07/23/18 History gabapentin 300 mg capsule 300 mg PO QPM 05/25/18 07/23/18 History ipratropium-albuterol 0.5 mg-3 3 ml INHALATION QID 05/25/18 07/23/18 History mg(2.5 mg base)/3 mL nebulization soln levothyroxine 100 mcg capsule 100 mcg PO DAILY 05/25/18 07/23/18 History linaclotide 290 mcg capsule 290 mcg PO DAILY 05/25/18 07/23/18 History mecobalamin (vitamin B12) 1,000 1,000 mcg SL DAILY 05/25/18 07/23/18 History mcg disintegrating tablet,sublingual melatonin 10 mg capsule 10 mg PO HS cap 05/25/18 07/23/18 History metoprolol succinate ER 25 mg 25 mg PO BID tab 05/25/18 07/23/18 History tablet,extended release 24 hr multivit and minerals-ferrous 15 ml PO DAILY 05/25/18 07/23/18 History gluconate 9 mg iron/15 mL oral liquid peg 400-propylene glycol (PF) 0.4 1 drops OP Q6H PRN 05/25/18 07/23/18 History %-0.3 % eye drops in a dropperette polyethylene glycol 3350 17 1 packet PO Q48H PRN gm 05/25/18 07/23/18 History gram/dose oral powder riboflavin (vitamin B2) 400 mg 400 mg PO DAILY 05/25/18 07/23/18 History tablet ropinirole 0.5 mg tablet 0.5 mg PO HS tab 05/25/18 07/23/18 History sennosides 8.6 mg tablet 8.6 mg PO BID PRN 05/25/18 07/23/18 History tramadol 50 mg tablet 50 mg PO Q6H tab 05/25/18 07/23/18 History guaifenesin [Mucinex] 1,200 mg PO Q12H PRN 07/04/18 07/23/18 History lorazepam 0.5 mg PO Q6H PRN 07/04/18 07/23/18 History midodrine 2.5 mg PO TID 07/04/18 07/23/18 History nystatin 5 ml PO QID 07/04/18 07/23/18 History potassium chloride 10 meq PO DAILY 07/04/18 07/23/18 History sucralfate [Carafate] 10 ml PO QID 07/04/18 07/23/18 History apixaban [Eliquis] 5 mg PO BID 07/23/18 07/23/18 History ferrous sulfate [iron] 325 mg PO DAILY PRN 07/23/18 07/23/18 History spironolactone 25 mg PO BID 07/23/18 07/23/18 History Allergies Allergy/AdvReac Type Severity Reaction Status Date / Time adhesive Allergy Severe TAPE-REDNESS, Verified 03/19/18 10:33 BLISTERS pneumococcal vaccine Allergy Severe SHORTNESS Verified 03/19/18 10:33 OF BREATH phenazopyridine Allergy Intermediate abdominal Verified 03/19/18 10:33 pain/rash erythromycin base Allergy Mild RASH Verified 03/19/18 10:33 metronidazole Allergy Mild skin rash Verified 07/23/18 22:10 salicylates Allergy Unknown pt states Verified 03/19/18 10:33 rash with ASA 325 but not ASA 81mg Sulfa (Sulfonamide Allergy Unknown ON MED LIST Verified 03/19/18 10:33 Antibiotics) tetracycline Allergy Unknown RASH Verified 03/19/18 10:33 morphine AdvReac Intermediate urinary Verified 03/19/18 10:33 retention -oral morphine only diltiazem AdvReac Mild FLUID Verified 03/19/18 10:33 RETENTION metoclopramide AdvReac Mild TREMORS Verified 03/19/18 10:33 bacitracin AdvReac Unknown "MAKES IT Verified 03/19/18 10:33 WORSE"-OK IF NOT OTC MEDICATION Past Med/Surg History Medical History Severe protein-calorie malnutrition (Chronic) Hypothyroidism (Chronic) Chronic diastolic CHF (congestive heart failure) (Chronic) Chronic kidney disease, stage III (moderate) (Chronic) Steroid-dependent COPD (Chronic) Depression (Chronic) Orthostatic hypotension (Chronic) GERD (gastroesophageal reflux disease) (Chronic) Ambulatory dysfunction (Chronic) Social History marital status: / Current Living Situation: [place] Feels Safe at Home: Yes Smoking Status: Never smoker Hx Alcohol Use: No Hx Substance Use: No Beliefs That Will Affect Care: None Preferred Language: Tunisian Review of Systems The HPI and ROS are limited due to AMS. Physical Exam Vital Signs Vital Signs - 24 hr 07/23/18 18:45 07/23/18 20:21 07/23/18 22:30 Temperature 36.9 C Temperature Source Oral Sepsis Recent Fever Within 48 Hours No Sepsis Action Taken by Nursing No Action Required Pulse Rate 94 H 95 H Pulse Rate [Right Finger] 95 H 76 Pulse Rhythm Regular Regular Pulse Rhythm [Right Finger] Regular Pulse Strength Normal Pulse Strength [Right Finger] Normal Respiratory Rate 16 16 16 Respiratory Effort / Characteristics Non-Labored Spontaneous Non-Labored Non-Labored Respiratory Depth Normal Normal Normal Respiratory Pattern Regular Regular Regular Blood Pressure 109/70 Blood Pressure [Right Arm] 107/66 115/73 Blood Pressure Mean 83 Blood Pressure Mean [Right Arm] 79 87 Blood Pressure Position Lying Blood Pressure Position [Right Arm] Lying Lying Pulse Oximetry 98 95 98 Oxygen Delivery Method Free Flow/Blow- by Trach Collar Trach Collar Trach Collar Oxygen Flow Rate 15 15 07/23/18 23:50 Temperature Temperature Source Sepsis Recent Fever Within 48 Hours Sepsis Action Taken by Nursing Pulse Rate 95 H Pulse Rate [Right Finger] Pulse Rhythm Pulse Rhythm [Right Finger] Pulse Strength Pulse Strength [Right Finger] Respiratory Rate 18 Respiratory Effort / Characteristics Respiratory Depth Respiratory Pattern Blood Pressure 112/69 Blood Pressure [Right Arm] Blood Pressure Mean Blood Pressure Mean [Right Arm] Blood Pressure Position Blood Pressure Position [Right Arm] Pulse Oximetry 98 Oxygen Delivery Method Room Air Oxygen Flow Rate General: Non-ill appearing older female in no acute distress. Responds to some commands. HEENT: Normal cephalic atraumatic. Pupils are equal round and reactive to light. Extraocular movements are intact. Tracheal tube in place withot active bleeding, small dry blood seen on gauze. Neck: Supple with a midline trachea. No meningeal signs or stiffness, no JVD or bruits. No Stridor. Chest: Clear to auscultation bilaterally. No wheezes or rhonchi. No increased work of breathing. Heart: regular rate and rhythm. Abdomen: Soft nontender, nondistended without rebound guarding or rigidity. Extremities: No cyanosis clubbing or edema. No calf tenderness or assymetry Spine/Back. Non tender to palpation. No CVA tenderness Skin: Good turgor without rashes. Neurologic exam: Cranial nerves two through 12 are intact. Motor and sensation are intact and symmetrical throughout. Course 1854: Past medical records reviewed. The patient was evaluated in room B8, and a complete history and physical examination were performed. 1999: I reevaluated the patient at this time. 2129: I reviewed the patient's case with Dr. Sean ERNST hospitalist. She will evaluate the patient for further management. Consultations Consultation #1: I reviewed the patient's case with Dr. Sean ERNST hospitalist. She will evaluate the patient for further management. Time: 21:30 Administered Medications Administered Medications: Medications administered: Sodium Chloride 250 ml @ 999 mls/hr IV Medical Decision Making Differential Diagnosis The patient is a 83 year old female who presents to the ED with episode of increasing confusion and blood in the tracheal tube [employer]. Differential diagnosis includes infection, anemia, cardiac disease, problems with tracheal tube and electrolyte or metabolic abnormalities among others. Medical Records Attestation: I reviewed the patient's medical records. Home Medications Current Medication List: was personally reviewed by me Laboratory Data Attestation: I reviewed the patient's lab results. Result diagrams: 07/23/18 19:31 07/23/18 19:31 Lab Results 07/23/18 07/23/18 07/23/18 Range/Units 19:31 19:31 19:31 WBC 11.51 H (4.8-10.8) K/uL RBC 4.56 (4.2-5.4) M/uL Hgb 13.8 (12.0-16.0) g/dL Hct 44.7 (37-47) % MCV 98.0 (80-100) fL MCH 30.3 (25-34) pg MCHC 30.9 L (32-36) g/dL RDW Std Deviation 64.9 H (36.4-46.3) fL RDW Coeff of Cem 18.0 H (11.5-14.5) % Plt Count 220 (130-400) K/uL MPV 13.2 H (7.4-10.4) fL Immature Gran % (Auto) 0.7 % Neut % (Auto) 77.3 % Lymph % (Auto) 13.9 % Putnam % (Auto) 7.4 % Eos % (Auto) 0.4 % Baso % (Auto) 0.3 % Immature Gran # (Auto) 0.08 H (0.00-0.02) K/uL Neut # (Auto) 8.90 H (1.4-6.5) K/uL Lymph # (Auto) 1.60 (1.2-3.4) K/uL Putnam # (Auto) 0.85 H (0.11-0.59) K/uL Eos # (Auto) 0.05 (0-0.5) K/uL Baso # (Auto) 0.03 (0-0.2) K/uL Absolute Nucleated RBC 0.12 H (0-0) K/uL Nucleated RBC % (auto) 1.0 % PT 15.5 H (9.0-12.0) Seconds INR 1.5 H (0.9-1.1) APTT 42.9 H (21.0-31.0) Seconds PTT Ratio 1.7 Sodium 158 H* (136-145) mmol/L Potassium 3.5 (3.5-5.1) mmol/L Chloride 122 H (98-107) mmol/L Carbon Dioxide 26 (21-32) mmol/L Anion Gap 12.0 H (3-11) BUN 40 H (7-18) mg/dl Creatinine 2.07 H (0.6-1.2) mg/dl Est Cr Clr Drug Dosing 18.3 ml/min Est GFR ( Amer) 25.4 Est GFR (Non-Af Amer) 21.9 BUN/Creatinine Ratio 19.3 (10-20) Glucose 137 H (70-99) mg/dl Lactate (0.4-2.0) mmol/L Calcium 8.9 (8.5-10.1) mg/dl Total Bilirubin 0.9 (0.1-1) mg/dl AST 35 (15-37) U/L ALT 22 (12-78) U/L Alkaline Phosphatase 171 H (45-117) U/L Troponin I < 0.015 (0-0.045) ng/ml Total Protein 6.8 (6.4-8.2) gm/dl Albumin 2.4 L (3.4-5.0) gm/dl Globulin 4.4 H (2.5-4.0) gm/dl Albumin/Globulin Ratio 0.5 L (0.9-2) Procalcitonin (0-0.5) ng/ml Urine Color Urine Appearance (Clear) Urine pH (4.5-7.5) Ur Specific [place] (1.000-1.030) Urine Protein (Negative) Urine Glucose (UA) (Negative) Urine Ketones (Negative) Urine Blood (Negative) Urine Nitrite (Negative) Urine Bilirubin (Negative) Urine Urobilinogen (Negative) Ur Leukocyte Esterase (Negative) Urine WBC (Auto) (0-5) /hpf Urine RBC (Auto) (0-4) /hpf U Hyaline Cast (Auto) (0-5) /lpf U Epithel Cells (Auto) (0-5) /lpf Urine Bacteria (Auto) (Negative) Ur Renal Epithelial Cell (0-5) /lpf Uric Acid Crystals (None Prsent) Granular Casts (0) /lpf Urine Yeast (None Prsent) Blood Type Antibody Screen 07/23/18 07/23/18 07/23/18 Range/Units 19:31 19:31 19:41 WBC (4.8-10.8) K/uL RBC (4.2-5.4) M/uL Hgb (12.0-16.0) g/dL Hct (37-47) % MCV (80-100) fL MCH (25-34) pg MCHC (32-36) g/dL RDW Std Deviation (36.4-46.3) fL RDW Coeff of Cem (11.5-14.5) % Plt Count (130-400) K/uL MPV (7.4-10.4) fL Immature Gran % (Auto) % Neut % (Auto) % Lymph % (Auto) % Putnam % (Auto) % Eos % (Auto) % Baso % (Auto) % Immature Gran # (Auto) (0.00-0.02) K/uL Neut # (Auto) (1.4-6.5) K/uL Lymph # (Auto) (1.2-3.4) K/uL Putnam # (Auto) (0.11-0.59) K/uL Eos # (Auto) (0-0.5) K/uL Baso # (Auto) (0-0.2) K/uL Absolute Nucleated RBC (0-0) K/uL Nucleated RBC % (auto) % PT (9.0-12.0) Seconds INR (0.9-1.1) APTT (21.0-31.0) Seconds PTT Ratio Sodium (136-145) mmol/L Potassium (3.5-5.1) mmol/L Chloride (98-107) mmol/L Carbon Dioxide (21-32) mmol/L Anion Gap (3-11) BUN (7-18) mg/dl Creatinine (0.6-1.2) mg/dl Est Cr Clr Drug Dosing ml/min Est GFR ( Amer) Est GFR (Non-Af Amer) BUN/Creatinine Ratio (10-20) Glucose (70-99) mg/dl Lactate 2.3 H* (0.4-2.0) mmol/L Calcium (8.5-10.1) mg/dl Total Bilirubin (0.1-1) mg/dl AST (15-37) U/L ALT (12-78) U/L Alkaline Phosphatase (45-117) U/L Troponin I (0-0.045) ng/ml Total Protein (6.4-8.2) gm/dl Albumin (3.4-5.0) gm/dl Globulin (2.5-4.0) gm/dl Albumin/Globulin Ratio (0.9-2) Procalcitonin 0.48 (0-0.5) ng/ml Urine Color Urine Appearance (Clear) Urine pH (4.5-7.5) Ur Specific [place] (1.000-1.030) Urine Protein (Negative) Urine Glucose (UA) (Negative) Urine Ketones (Negative) Urine Blood (Negative) Urine Nitrite (Negative) Urine Bilirubin (Negative) Urine Urobilinogen (Negative) Ur Leukocyte Esterase (Negative) Urine WBC (Auto) (0-5) /hpf Urine RBC (Auto) (0-4) /hpf U Hyaline Cast (Auto) (0-5) /lpf U Epithel Cells (Auto) (0-5) /lpf Urine Bacteria (Auto) (Negative) Ur Renal Epithelial Cell (0-5) /lpf Uric Acid Crystals (None Prsent) Granular Casts (0) /lpf Urine Yeast (None Prsent) Blood Type A Positive Antibody Screen NEGATIVE 07/23/18 Range/Units 21:14 WBC (4.8-10.8) K/uL RBC (4.2-5.4) M/uL Hgb (12.0-16.0) g/dL Hct (37-47) % MCV (80-100) fL MCH (25-34) pg MCHC (32-36) g/dL RDW Std Deviation (36.4-46.3) fL RDW Coeff of Cem (11.5-14.5) % Plt Count (130-400) K/uL MPV (7.4-10.4) fL Immature Gran % (Auto) % Neut % (Auto) % Lymph % (Auto) % Putnam % (Auto) % Eos % (Auto) % Baso % (Auto) % Immature Gran # (Auto) (0.00-0.02) K/uL Neut # (Auto) (1.4-6.5) K/uL Lymph # (Auto) (1.2-3.4) K/uL [place]nam # (Auto) (0.11-0.59) K/uL Eos # (Auto) (0-0.5) K/uL Baso # (Auto) (0-0.2) K/uL Absolute Nucleated RBC (0-0) K/uL Nucleated RBC % (auto) % PT (9.0-12.0) Seconds INR (0.9-1.1) APTT (21.0-31.0) Seconds PTT Ratio Sodium (136-145) mmol/L Potassium (3.5-5.1) mmol/L Chloride (98-107) mmol/L Carbon Dioxide (21-32) mmol/L Anion Gap (3-11) BUN (7-18) mg/dl Creatinine (0.6-1.2) mg/dl Est Cr Clr Drug Dosing ml/min Est GFR ( Amer) Est GFR (Non-Af Amer) BUN/Creatinine Ratio (10-20) Glucose (70-99) mg/dl Lactate (0.4-2.0) mmol/L Calcium (8.5-10.1) mg/dl Total Bilirubin (0.1-1) mg/dl AST (15-37) U/L ALT (12-78) U/L Alkaline Phosphatase (45-117) U/L Troponin I (0-0.045) ng/ml Total Protein (6.4-8.2) gm/dl Albumin (3.4-5.0) gm/dl Globulin (2.5-4.0) gm/dl Albumin/Globulin Ratio (0.9-2) Procalcitonin (0-0.5) ng/ml Urine Color Dark Yellow Urine Appearance Turbid H (Clear) Urine pH 5.0 (4.5-7.5) Ur Specific [place] 1.025 (1.000-1.030) Urine Protein 1+ H (Negative) Urine Glucose (UA) Negative (Negative) Urine Ketones Trace H (Negative) Urine Blood Trace H (Negative) Urine Nitrite Positive H (Negative) Urine Bilirubin Negative (Negative) Urine Urobilinogen Negative (Negative) Ur Leukocyte Esterase 1+ H (Negative) Urine WBC (Auto) >30 H (0-5) /hpf Urine RBC (Auto) 0-4 (0-4) /hpf U Hyaline Cast (Auto) 5-10 H (0-5) /lpf U Epithel Cells (Auto) >30 H (0-5) /lpf Urine Bacteria (Auto) Negative (Negative) Ur Renal Epithelial Cell 0-5 (0-5) /lpf Uric Acid Crystals Present H (None Prsent) Granular Casts 1-5 H (0) /lpf Urine Yeast Budding w/ Hyphae H (None Prsent) Blood Type Antibody Screen Imaging Data Radiologist's Impression: Radiology results as stated below per my review and the radiologist's interpretation: XR chest 1V portable HISTORY: 83 years-old Female Sepsis acute sepsis COMPARISON: Chest radiograph 07/04/2018 TECHNIQUE: Portable AP view of the chest FINDINGS: Patient is side bent towards the right. Cardiac silhouette is mildly enlarged, unchanged. Calcification of the thoracic aortic arch. Tracheostomy cannula overlies the midline at the level of the clavicular heads. Linear subsegmental right perihilar and bibasilar opacities are noted with blunting of the costophrenic angles. No pneumothorax. Degenerative changes of the spine with bilateral shoulder arthroplasties. Extensive joe and screw fusion hardware of the thoracolumbar spine and cervical spine. Surgical clips project over the abdominal right upper quadrant. IMPRESSION: 1. Cardiomegaly without overt pulmonary edema. 2. Right perihilar and bibasilar linear subsegmental consolidative opacities redemonstrated suggesting atelectasis and/or scarring. 3. Blunting of the costophrenic angles may be secondary to atelectasis versus trace effusions. The above report was generated using voice recognition software. It may contain grammatical, syntax or spelling errors. Electronically signed by: Rey Campos M.D. 07/23/2018 7:40 PM ECG Data Attestation: I personally reviewed and interpreted this ECG as follows: Indication: weakness Rate (beats per minute): 94 Rhythm: normal sinus Findings: + other (Anterior T wave abnormalities ) Comparison ECG Date: from (07-04-18) Change: the following changes noted (Old inferior infarct changes noted) Blood Pressure Blood Pressure Findings: Normal blood pressure Blood Pressure Disposition: further management by hospitalist MDM Narrative This patient comes in as described above. She was placed in room BH she has a very complicated medical history she does have a trach. She has had some blood tinged from this at times is not bleeding at this point and I do not suspect there is a significant etiology for bleeding at this point. She is afebrile here. she does have some increasing confusion. she does look dry and was hydrated with normal saline in the ED. She was found to have an elevated BUN and creatinine consistent with dehydration also sodium and signal also be consistent with dehydration lactic acid is mildly elevated. Chest x-ray does not show any definite pneumonia. EKG does not show any acute ischemic changes or ectopy. I do think she needs to be admitted for treatment of dehydration and hypernatremia. We have consulted the [facility] hospitalist to see her in the ER for these measures. Impression & Plan Hypernatremia Discharge Plan Visit Data *Final* Discharge Date/Time: 07/24/18 00:40 Chief Complaint: Other Complaint Stated Complaint: BLEEDING FROM TRACH ED Provider: Huber Schwarz ED Midlevel Provider: Eliana Mullins Discharge Problem: Hypernatremia Patient Disposition: Being Evaluated by Hospitalist Discharge Instructions Interventions: ED Discharge Assessment Last Done: 07/23/18 23:50 The scribe's documentation has been prepared under my direction and personally reviewed by me in its entirety. I confirm that the note above accurately reflects all work, treatment, procedures, and medical decision making performed by me.
[2018-07-24] MEDS ORDERED: guaiFENesin 600 MG TABCR PO PRN (01:27)
[2018-07-24] MEDS ORDERED: SENNA 8.6 MG TAB PO PRN (01:27)
[2018-07-24] MEDS ORDERED: DOCUSATE SODIUM 100 MG CAP PO PRN (01:27)
[2018-07-24] MEDS ORDERED: BISACODYL 10 MG SUPP PR PRN (01:27)
[2018-07-24] MEDS ORDERED: ARTIFICIAL TEARS OP PRN (01:27)
[2018-07-24] MEDS ORDERED: POLYETHYLENE (MIRALAX) 17 GM PACK PO PRN (01:27)
[2018-07-24 01:46] LABS: Magnesium 2.9 mg/dl (1.8-2.4); Phosphorus 3.2 mg/dl (2.5-4.9)
[2018-07-24] MEDS: LACTATED RINGER'S 1,000 ML IV SCH ×3 (02:12→20:55)
[2018-07-24] MEDS ORDERED: cefTRIAXone SODIUM 1,000 MG in DEXTROSE 5% 50 ML IV SCH (03:00)
[2018-07-24 06:27] LABS: Basophils # (auto) 0.04 K/uL (0-0.2); Basophils % (auto) 0.3 %; Eosinophils # (auto) 0.02 K/uL (0-0.5); Eosinophils % (auto) 0.2 %; Hematocrit (blood only) 42.7 % (37-47); Hemoglobin 13.2 g/dL (12.0-16.0); Immature Granulocytes # (auto) 0.12 K/uL (0.00-0.02); Lymphocytes # (auto) 2.27 K/uL (1.2-3.4); Lymphocytes % (auto) 19.5 %; Mean Corpuscular Hgb Conc 30.9 g/dL (32-36); Mean Corpuscular Volume 97.9 fL (80-100); Mean Platelet Volume 12.9 fL (7.4-10.4); Monocytes # (auto) 0.88 K/uL (0.11-0.59); Monocytes % (auto) 7.6 %; Neutrophils % (auto) 71.4 %; Nucleated RBC # (auto) 0.11 K/uL (0-0); Nucleated RBC % (auto) 0.9 %; Platelet Count 172 K/uL (130-400); RDW Standard Deviation 65.3 fL (36.4-46.3); Red Blood Count 4.36 M/uL (4.2-5.4); White Blood Count 11.63 K/uL (4.8-10.8)
[2018-07-24] MEDS: LEVOTHYROXINE SODIUM 100 MCG TABLET PO SCH (07:29)
[2018-07-24] MEDS: ALBUT/IPRATROP 3MG/0.5MG NEB 3 ML VIAL INH SCH ×4 (07:32→23:09)
[2018-07-24] MEDS ORDERED: METOPROLOL SUCC 25MG EXT REL TAB PO SCH (09:00)
[2018-07-24] MEDS: MIDODRINE HCL 2.5 MG TAB PO SCH ×3 (09:51→16:48)
[2018-07-24] MEDS: NYSTATIN SUSP 500,000 U/5 ML UDC PO SCH ×4 (09:52→22:19)
[2018-07-24] MEDS: PANTOprazole 40 MG TAB PO SCH (09:52)
[2018-07-24] MEDS: CITALOPRAM 20 MG TAB PO SCH (09:52)
[2018-07-24] MEDS: AMIODARONE 200 MG TAB PO SCH (09:52)
[2018-07-24] MEDS: SUCRALFATE 1 GM/10 ML UDC PO SCH ×4 (09:52→22:29)
[2018-07-24] MEDS: CALCITRIOL 0.25 MCG CAPSULE PO SCH (09:53)
[2018-07-24 10:23] LABS: Calcium 8.7 mg/dl (8.5-10.1); Creatinine Clr Calc Pharmacy 13.1 ml/min; Est GFR (African American) 16.3; Est GFR (Non-African American) 14.1; Phosphorus 3.2 mg/dl (2.5-4.9)
[2018-07-24 10:31] LABS: BUN Creatinine Ratio 14.4 (10-20)
--- NOTE | 2018-07-24 11:24 | Hospitalist Progress Note ---
Date of Service July 24, 2018 Assessment & Plan (1) Hemoptysis: Bloody secretions noted on suction. Slightly increased O2 requirement per daughter. No PNA noted on CXR. Patient HD stable. Hg of 13.8. Possibly secondary to irritation from trach cuff vs mucosal dryness. * Admit with continuous pulse oximetry * Trach collar with humidified O2 * Pulmonary consult - appreciate assistance 07/25 Appreciate pulm input. cont. ceftriaxone. Prognosis appears poor. Especially given her weight loss. Daughter wants patient to remain full code. (2) MANJULA (acute kidney injury): BUN=40, Cr=2.07. Patient with baseline CKD III. Most likely secondary to prerenal azotemia, poor po intake and dehydration * IVF with LR at 100mL/hr x 2 liters * Monitor BUN, Cr, electrolytes and acid/base status * Avoid nephrotoxic agents * Renal dosing where appropirate * Continue Calcitriol * (3) Hypernatremia: Rj=[id number]. Most likely secondary to dehydration * LR as above * Continue to monitor electrolytes * (4) Atrial fibrillation: Rate controlled at present. No anticoagulation. * Continue Amiodarone * Hold Apixaban * Continue to monitor * (5) Hypothyroidism: Stable. Chronic * Continue Synthroid (6) Chronic diastolic CHF (congestive heart failure): No overt evidence of volume overload * Continue Metoprolol * Continue to monitor * (7) UTI (urinary tract infection): Afebrile. HD stable at present. * Urine culture * Ceftriaxone 1gm IV daily * Continue to monitor * (8) Chronic kidney disease, stage III (moderate): As above (9) Depression: Stable. Chronic * Conitnue Celexa daily (10) Orthostatic hypotension: Continue Midodrine (11) GERD (gastroesophageal reflux disease): Conitnue Sucralfate (12) Hypotension: Patient is hypotensive in the evening at 17:00. Patient has not been able to take PO medicine. As patient is a full code currently, will transfer patient to Intensive care unit. Patient has a poor prognosis. Appears patient was a DNR during last admission. Spent 65 minutes in management of patient. 45 minutes spent from 10 to 10:45 20 minutes from 17:00: 17:20 Subjective Patient appears to be lethargic. Greening sputum on gown. Physical Exam 2 Vital Signs (Past 24 Hours): Last Vital Signs Temp 37.1 C 11/06/18 07:59 Pulse 98 H 07/24/18 07:59 Resp 20 07/24/18 07:59 BP 121/73 07/24/18 07:59 Pulse Ox 90 07/24/18 07:59 Physical Exam: General: patient resting comfortably, NAD, chronically ill in appearance, does not follow commands, does not answer questions. No longer appears obese. Skin: warm, dry, intact, no rashes or lesions HEENT: NC/AT, PERRL, anicteric sclera, conjunctiva without injection, external ear normal to inspection and nontender, nares patent, dry mucus membranes with dried blood present on the oral mucosa, dentition intact, no oropharyngeal lesions, neck supple, trachea midline, tracheostomy in place, no bleeding at trach site, +small amount of skin breakdown at tracheostomy site, no LAD, no thyromegaly, no JVD Heart: +S1/S2, regular, no m/r/g Lungs: CTA anteriorly, no rales/rhonchi/wheezes Abd: +BS, soft, diffusely tender with deep palpation, no rebound/guarding/ peritoneal signs Ext: warm, 2+ pulses in UE/LE bilaterally, no clubbing/cyanosis or edema Neuro: patient does not follow commands or provide verbal response, withdraws four extremities from painful stimuli _ (1) UTI (urinary tract infection) Encounter type: Hematuria presence: without hematuria Indwelling urinary catheter type: Urinary tract infection type: acute cystitis Qualified Code(s) : N30.00 - Acute cystitis without hematuria (2) Atrial fibrillation Atrial fibrillation type: chronic Qualified Code(s): I48.2 - Chronic atrial fibrillation (3) Depression Active/Remission status: currently active Depression Type: major depressive disorder Major depression episode severity: moderate Major depression recurrence: unspecified whether recurrent Psychotic features: Trimester: Qualified Code(s): F32.1 - Major depressive disorder, single episode, moderate (4) Hypothyroidism Hypothyroidism type: acquired Qualified Code(s): E03.9 - Hypothyroidism, unspecified (5) GERD (gastroesophageal reflux disease) Esophagitis presence: without esophagitis Qualified Code(s): K21.9 - Gastro- esophageal reflux disease without esophagitis
[2018-07-24] MEDS: DICLOFENAC SOD 1% GEL 100 GM TUBE EXT SCH ×4 (11:58→22:21)
[2018-07-24 12:15] LABS: Mean Platelet Volume 13.9 fL (7.4-10.4); Nucleated RBC # (auto) 0.11 K/uL (0-0); Nucleated RBC % (auto) 0.7 %; Platelet Count 171 K/uL (130-400)
[2018-07-24 12:29] LABS: Magnesium 2.3 mg/dl (1.8-2.4)
[2018-07-24 13:18] LABS: Basophils # (auto) 0.16 K/uL (0-0.2); Basophils % (auto) 1.1 %; Eosinophils # (auto) 0.03 K/uL (0-0.5); Eosinophils % (auto) 0.2 %; Hematocrit (blood only) 39.4 % (37-47); Hemoglobin 12.1 g/dL (12.0-16.0); Immature Granulocytes # (auto) 0.38 K/uL (0.00-0.02); Immature Granulocytes % (auto) 2.5 %; Lymphocytes # (auto) 4.79 K/uL (1.2-3.4); Lymphocytes % (auto) 31.6 %; Mean Corpuscular Hgb Conc 30.7 g/dL (32-36); Mean Corpuscular Volume 98.7 fL (80-100); Monocytes % (auto) 7.3 %; Neutrophils # (auto) 8.71 K/uL (1.4-6.5); Neutrophils % (auto) 57.3 %; RDW Standard Deviation 65.2 fL (36.4-46.3); Red Blood Count 3.99 M/uL (4.2-5.4); White Blood Count 15.17 K/uL (4.8-10.8)
--- NOTE | 2018-07-24 14:41 | Palliative Care Consultation ---
Date of Consultation July 24, 2018 Assessment & Plan (1) Goals of care, counseling/discussion: -Complicated 83 year old with chronic respiratory failure with trach, chronic diastolic CHF, COPD, depression, severe protein-calorie malnutrition, and others presented with hemoptysis and altered mental status. Daughter, whom patient lives with, reports increased oxygen requirement. CXR shows no pneumonia. Elevated BUN/creatinine likely due to dehydration. Does have UTI. Patient has had frequent readmissions, is severe deconditioned and frail, has been losing weight. Very poor prognosis. -Patient is known to palliative care service. Patient's daughter, Grisel, has been resistant to allowing palliative care team to be involved in her mother's care. -Patient has periods of metabolic encephalopathy/confusion/somnolence frequently. When patient was awake during previous admissions she has made herself a DNR several times and states she just wants comfort measures. However , when her daughter is present she sometimes changes her mind. Grisel wants patient to be a full code and states, "You guys don't know my mom like I do. When she's not in the hospital, she tells me she isn't ready to give up and she wants to be a full code." -Today, Grisel stated, "I'm not changing her code status, I refuse to," as soon as I walked into room before I even spoke. -I talked with Grisel for a period of time, as patient is somnolent/obtunded and did not wake during my entire visit. I explained that palliative care is focused on comfort and quality of life but also being supportive to patient's and families to be sure we are giving the patient the best care according to goals. She agreed to allow palliative care to continue to follow during this hospitalization. -Patient looks alarmingly worse than when I last saw her a few months ago. She has lost a significant amount of weight. She is frail and ill appearing. Recovery potential is uncertain at this point. -Grisel did indicate that she wants to take patient back home after hospitalization. Case management will follow up today. (2) Metabolic encephalopathy: -Multifactorial. Possibly due to UTI and dehydration. (3) Hemoptysis: -Bloody secretions noted on suction via trach. -Hgb stable at 13.8. -Could be from dry mucosa per the daughter, humidified oxygen was not working at home. -Pulmonary consulted. (4) MANJULA (acute kidney injury): -CKD stage III at baseline. -Creatinine 2.07 on admission, 2.98 today. -Could be secondary to dehydration. BUN 43 today. -Has LR at 100ml/hr. (5) Atrial fibrillation: -Rate-controlled. -Chronic. Atrial fibrillation type: chronic Qualified Code(s): I48.2 - Chronic atrial fibrillation (6) Chronic diastolic CHF (congestive heart failure): -Stable and chronic. (7) UTI (urinary tract infection): -UA positive. -IV ceftriaxone. -Culture pending. Urinary tract infection type: acute cystitis Hematuria presence: without hematuria Indwelling urinary catheter type: Encounter type: Qualified Code(s): N30.00 - Acute cystitis without hematuria (8) Chronic kidney disease, stage III (moderate): (9) Depression: -Stable and chronic -On Celexa. Depression Type: major depressive disorder Major depression recurrence: unspecified whether recurrent Active/Remission status: currently active Major depression episode severity: moderate Psychotic features: Trimester: Qualified Code(s): F32.1 - Major depressive disorder, single episode, moderate History of Present Illness Reason for Consultation: Goals of care Requesting Physician: Dr. Nelson Attending Physician: Anderson Nelson History of Present Illness This 83 year old female patient with complicated and extensive PMH including chronic respiratory failure, COPD, trach, chronic diastolic CHF, chronic steroid dependence, and others listed below, presented to the hospital with hemoptysis. She is found to be obtunded, has a UTI and dehydration. She is receiving appropriate treatment for such by the hospitalist team. Patient was last here in hospital in April 2018 (has had many other admissions over the years) and was discharged to [facility] [place]. She then went back home where she lives with her daughter, Grisel. Patient has been declining steadily over the last few years but especially rapidly in the last couple months. She's lost a great deal of weight, she has frequent readmissions to the hospital, is completely dependent in her care, has severe protein-calorie malnutrition. She has been seen by palliative care service several times in the past and there have been conflicting goals of care. Sometimes patient states she wants to be DNR and comfort measures only. Sometimes she states she wants full treatment and to be full code. Patient has had long-standing issues with depression and does occasionally voice her frustration with being in such poor health. Her daughter, Grisel, is one of her three POAs, lives with patient and is her primary caregiver. 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 Palliative care is consulted again to discuss GOC and provide support. I met with patient and her daughter Grisel in room 409. Patient is obtunded and did not wake during my entire visit. I did speak with Grisel who was adamant that patient will remain a full code until she and her siblings (the other two POAs) decide otherwise. Her plan is to have her mother return home with her after hospitalization. See A&P for further discussion. Thank you kindly for this consult. I will follow. Allergies Allergy/AdvReac Type Severity Reaction Status Date / Time adhesive Allergy Severe TAPE-REDNESS, Verified 03/19/18 10:33 BLISTERS pneumococcal vaccine Allergy Severe SHORTNESS Verified 03/19/18 10:33 OF BREATH phenazopyridine Allergy Intermediate abdominal Verified 03/19/18 10:33 pain/rash erythromycin base Allergy Mild RASH Verified 03/19/18 10:33 metronidazole Allergy Mild skin rash Verified 07/23/18 22:10 salicylates Allergy Unknown pt states Verified 03/19/18 10:33 rash with ASA 325 but not ASA 81mg Sulfa (Sulfonamide Allergy Unknown ON MED LIST Verified 03/19/18 10:33 Antibiotics) tetracycline Allergy Unknown RASH Verified 03/19/18 10:33 morphine AdvReac Intermediate urinary Verified 03/19/18 10:33 retention -oral morphine only diltiazem AdvReac Mild FLUID Verified 03/19/18 10:33 RETENTION metoclopramide AdvReac Mild TREMORS Verified 03/19/18 10:33 bacitracin AdvReac Unknown "MAKES IT Verified 03/19/18 10:33 WORSE"-OK IF NOT OTC MEDICATION Home Medications Home Medications Medication Instructions Recorded Confirmed Type acetaminophen 325 mg capsule 650 mg PO BID PRN cap 05/25/18 07/23/18 History amiodarone 200 mg tablet 200 mg PO DAILY 05/25/18 07/23/18 History bisacodyl 10 mg rectal suppository 10 mg MA .q24 PRN ea 05/25/18 07/23/18 History calcitriol 0.25 mcg capsule 0.25 mcg PO DAILY cap 05/25/18 07/23/18 History cholecalciferol (vitamin D3) 2,000 2,000 units PO DAILY 05/25/18 07/23/18 History unit capsule citalopram 20 mg tablet 30 mg PO DAILY tab 05/25/18 07/23/18 History dexlansoprazole 60 mg 60 mg PO DAILY 05/25/18 07/23/18 History capsule,biphase delayed release diclofenac 1 % topical gel 2 gm TOPICAL QID 05/25/18 07/23/18 History gabapentin 300 mg capsule 300 mg PO QPM 05/25/18 07/23/18 History ipratropium-albuterol 0.5 mg-3 3 ml INHALATION QID 05/25/18 07/23/18 History mg(2.5 mg base)/3 mL nebulization soln levothyroxine 100 mcg capsule 100 mcg PO DAILY 05/25/18 07/23/18 History linaclotide 290 mcg capsule 290 mcg PO DAILY 05/25/18 07/23/18 History mecobalamin (vitamin B12) 1,000 1,000 mcg SL DAILY 05/25/18 07/23/18 History mcg disintegrating tablet,sublingual melatonin 10 mg capsule 10 mg PO HS cap 05/25/18 07/23/18 History metoprolol succinate ER 25 mg 25 mg PO BID tab 05/25/18 07/23/18 History tablet,extended release 24 hr multivit and minerals-ferrous 15 ml PO DAILY 05/25/18 07/23/18 History gluconate 9 mg iron/15 mL oral liquid peg 400-propylene glycol (PF) 0.4 1 drops OP Q6H PRN 05/25/18 07/23/18 History %-0.3 % eye drops in a dropperette polyethylene glycol 3350 17 1 packet PO Q48H PRN gm 05/25/18 07/23/18 History gram/dose oral powder riboflavin (vitamin B2) 400 mg 400 mg PO DAILY 05/25/18 07/23/18 History tablet ropinirole 0.5 mg tablet 0.5 mg PO HS tab 05/25/18 07/23/18 History sennosides 8.6 mg tablet 8.6 mg PO BID PRN 05/25/18 07/23/18 History tramadol 50 mg tablet 50 mg PO Q6H tab 05/25/18 07/23/18 History guaifenesin [Mucinex] 1,200 mg PO Q12H PRN 07/04/18 07/23/18 History lorazepam 0.5 mg PO Q6H PRN 07/04/18 07/23/18 History midodrine 2.5 mg PO TID 07/04/18 07/23/18 History nystatin 5 ml PO QID 07/04/18 07/23/18 History potassium chloride 10 meq PO DAILY 07/04/18 07/23/18 History sucralfate [Carafate] 10 ml PO QID 07/04/18 07/23/18 History apixaban [Eliquis] 5 mg PO BID 07/23/18 07/23/18 History ferrous sulfate [iron] 325 mg PO DAILY PRN 07/23/18 07/23/18 History spironolactone 25 mg PO BID 07/23/18 07/23/18 History Patient History Medical History Hemoptysis Severe protein-calorie malnutrition (Chronic) Hypothyroidism (Chronic) Chronic diastolic CHF (congestive heart failure) (Chronic) Chronic kidney disease, stage III (moderate) (Chronic) Steroid-dependent COPD (Chronic) Depression (Chronic) Orthostatic hypotension (Chronic) GERD (gastroesophageal reflux disease) (Chronic) Ambulatory dysfunction (Chronic) Atrial fibrillation Tracheostomy in place 03/15/[address] Social History marital status: / Current Living Situation: Family Other Information That Helps Us Care for You: No Feels Safe at Home: Yes Smoking Status: Never smoker Hx Alcohol Use: No Hx Substance Use: No Beliefs That Will Affect Care: None Preferred Language: Kinyarwanda Communication Ability: Impaired Communication Ability Comment: lethargic Plastic Molder Required: No Review of Systems unable to obtain due to AMS Physical Exam 2 Vital Signs (Past 24 Hours): Last Vital Signs Temp 37.1 C 07/24/18 07:59 Pulse 107 H 07/24/18 11:24 Resp 18 07/24/18 11:24 BP 121/73 07/24/18 07:59 Pulse Ox 93 11/06/18 11:24 Constitutional: + ill appearing and + frail appearing; + not well nourished and no acute distress ENMT: Mouth: + dry oral mucous membranes (has some dried dark crusting around mouth. uncertain if old blood or sputum or both.) Neck: trachea midline and + tracheostomy present Respiratory: normal respiratory effort; no respiratory distress Auscultation: + diminished lung sounds Cardiovascular: RRR, no murmur, no edema Gastrointestinal (Abdomen): Inspection/Auscultation: normal bowel sounds; abdomen not distended Percussion/Palpation: abdomen soft Skin: + ecchymosis (thin fragile skin) Neurologic: + obtunded Time Spent Midlevel 55 minutes with >50% of time spent at bedside with patient and daughter discussing condition and GOC.
[2018-07-24] MEDS ORDERED: MICONAZOLE NITRATE POWDER 43 GM EXT PRN (15:45)
[2018-07-24] MEDS ORDERED: PHYTONADIONE 2.5 MG in SODIUM CHLORIDE 0.9% 50 ML IV ONE (18:00)
--- NOTE | 2018-07-24 18:31 | Procedure Note ---
Procedure Note Date of Service July 24, 2018 Procedure date: Noted above Procedure: fiberoptic bronchoscopy Pre-procedure Diagnosis: Sepsis, chronic trach dependency Post-procedure Diagnosis: same as above Prior to Procedure: Informed Consent: The risks, benefits, indications, potential complications, and alternatives were explained to the patient/family and informed consent obtained. Consent provided by daughter secondary to patient's altered mental status Attending Staff: Maged Armas DO Resident/APC: Not applicable Skin Prep: Not applicable Anesthesia: Lidocaine 1% 5 mL's Indications: Patient is an 83-year-old female with chronic tracheostomy dependence with sepsis of unclear etiology. The identity of the patient was confirmed and a bedside time out was performed. Description of Procedure: Fiberoptic bronchoscopy was performed via tracheostomy tube tube. Bronchioalveolar lavage of the right lower lobe was performed. Findings included: Inflamed upper airways consistent with tracheitis , mild oozing with manipulation of white secretions in the upper airway most likely consistent with candidal colonization. Small amount of mucoid secretions in the distal right lower and right middle lobes. Complications: None Specimens: Bronchial washings sent for culture and Gram stain, cytology, fungal elements, and AFB stain and culture. Estimated blood loss: Zero
[2018-07-24] MEDS: THIAMINE HCL 100 MG in SYRINGE 9 ML IV SCH (18:52)
--- NOTE | 2018-07-24 18:58 | Consultation Report ---
DATE OF CONSULTATION: 07/24/2018 TIME: 2:05 p.m. REPORT OF CONSULTATION: The patient was seen in room 409. HISTORY OF PRESENT ILLNESS: She is an 83-year-old female who is being seen because of hemoptysis. She has a longstanding history of chronic respiratory failure. This was felt to be secondary to COPD. She also had diaphragm dysfunction. She had a tracheostomy done on 03/23/2018. In May, she was hospitalized with numerous medical problems. She went to [facility] following discharge. She has been home most recently. Her daughter states that there is always someone with her. This past weekend, she was reported to have some increased thick secretions with a little bit of dark red blood. She is on Eliquis. Subsequently, she started to have some brighter blood in and around the trach. This is what prompted coming to the ER. It should be noted that the patient came to the ER on 07/04/2018, because her tracheostomy tube had come out. She was still in the long-term at that time. According to her daughter, they did replace the trach tube, but they put in a cuffed tube rather than an uncuffed tube. She feels like her mother has had more problems in terms of lower oxygen levels since the recent tube was placed. She has not had a lot of blood since admission according to nursing staff. She does take Eliquis as an outpatient and that has been put on hold. The patient is unable to give me any substantial history. She is very lethargic. Ultimately after much stimulation, I was able to get her to respond to questioning by performing some simple commands such as opening and closing her eyes, moving left arm, moving right arm, etc. At best, she was minimally arousable. She does have end-stage lung disease. She had been steroid dependent for long periods of time. This ultimately led to having the tracheostomy done in the summertime. PAST MEDICAL HISTORY: 1. DVT. 2. PE. 3. Numerous pneumonias. 4. Atrial fibrillation. 5. Obesity hypoventilation. 6. Chronic kidney disease. 7. Cellulitis. 8. Steroid myopathy. 9. C. diff infection. 10. Depression. 11. Hyperlipidemia. 12. Diabetes. 13. Fibromyalgia. 14. GERD. 15. Gastroparesis. 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 PAST SURGICAL HISTORY: 1. Diaphragm plication. 2. Multiple bronchoscopies. 3. Adrenalectomy. 4. Hysterectomy. 5. Cervical spine surgery. 6. Knee arthroscopy. 7. T&A. 8. Thyroidectomy. 9. Vaginal sling surgery. 10. Appendectomy. 11. Low back surgery. 12. Shoulder replacements bilaterally. FAMILY HISTORY: Mother had breast cancer. Father had kidney stones and hypertension. Grandmother had breast cancer. SOCIAL HISTORY: Tobacco: Reportedly never smoked. ETOH: None. ALLERGIES: 1. PNEUMOCOCCAL VACCINE. 2. PHENAZOPYRIDINE 3. ERYTHROMYCIN BASE. 4. METRONIDAZOLE. 5. SALICYLATES. 6. SULFA. 7. TETRACYCLINE. 8. MORPHINE. 9. DILTIAZEM. 10. METOCLOPRAMIDE. 11. BACITRACIN. REVIEW OF SYSTEMS: Unobtainable. MEDICATIONS AT HOME: 1. Albuterol by neb q.i.d. 2. Amiodarone 200 mg daily. 3. Artificial tears. 4. Bisacodyl p.r.n. 5. Calcitriol 0.25 mcg daily. 6. Citalopram 30 mg daily. 7. Diclofenac. 8. Docusate. 9. Gabapentin 300 mg q.p.m. 10. Guaifenesin q. 12 hours p.r.n. 11. Levothyroxine 100 mcg daily. 12. Lorazepam 0.5 q. 6 p.r.n. 13. Metoprolol 25 mg b.i.d. 14. Midodrine 2.5 mg t.i.d. 15. Nystatin. 16. Pantoprazole 40 mg daily. 17. MiraLax. 18. Ropinirole 0.5 at bedtime. 19. Sucralfate 1 gram q.i.d. PHYSICAL EXAMINATION: GENERAL: The patient is a chronically ill-appearing 83-year-old female. She was lethargic, but slightly arousable. VITAL SIGNS: Current temperature 37.1. Maximum temperature, which occurred at 12:15 a.m. today 37.8. HEENT: Her pupils did react. Nares were clear. It was difficult to get the patient to open her mouth. She does have a denture plate on top. The membranes appear dry. There is a tracheostomy in place. I saw no evidence of any bleeding. NECK: Palpation of the neck reveals no lymph nodes. CARDIAC: Rate was 107. Rhythm was regular. Blood pressure 121/73. LUNGS: Respiratory rate was 18 breaths per minute and not labored. She actually was breathing somewhat shallowly. I tried very hard to get her to take deep breaths, but with minimal success. Auscultation does reveal bilateral diffuse rales. They sounded more dry than wet. She does have a 40% trach collar. Oxygen saturation 93%. ABDOMEN: Soft. Bowel sounds were decreased. EXTREMITIES: There was no apparent tenderness to palpation. The patient's legs showed no edema. She could move them very slightly upon request. There was no cyanosis or clubbing. Chest x-ray done yesterday shows cardiomegaly without pulmonary edema. There were some perihilar and bibasilar linear markings suggesting atelectasis or scarring. Tracheostomy tube is in place. One could see evidence of prior back surgery and shoulder surgeries. LABORATORY DATA: CBC shows a white count of 15.17. Hemoglobin is 12. Platelets 171,000. The patient's INR is 1.5 with PTT 42.9. This was done with the patient being on Eliquis. Sodium today is 160, potassium 4.0, chloride 123, bicarbonate 23. The BUN is 43 with a creatinine of 2.98. Yesterday's creatinine was 2.07. Lactate this morning was elevated at 2.6. Calcium, phosphorus, and magnesium were within the limits of normal. Albumin was low at 2.4. Urine culture is pending. Urinalysis showed +1 protein, positive urine nitrite, 1+ urine leukocyte esterase, greater than 30 wbc's. Urine bacteria negative. Blood cultures are pending. IMPRESSION: 1. Hemoptysis. 2. Chronic respiratory failure. 3. Chronic obstructive pulmonary disease. 4. Diaphragm dysfunction. RECOMMENDATIONS: 1. In light of the fact she has had very little hemoptysis, I have no objection to restarting Eliquis. 2. Would suggest consultation with Dr. Velazquez who put her trach tube in to let her assess any needs of this trach tube. The patient's daughter reports she has not been doing as well with this cuff tube. 3. Would ask respiratory to put some saline through her trach tube about 4 times per day. Any suctioning should be gentle. 4. I have no objection to the ceftriaxone for now. 5. If her renal function continues to worsen, she will need nephrology evaluation. I believe they have seen her previously. Overall, status is poor. Thank you for asking me to assist in her care. BREANA
[2018-07-24] MEDS ORDERED: CASPOFUNGIN 70 MG in SODIUM CHLORIDE 0.9% 250 ML IV ONE (19:00)
--- NOTE | 2018-07-24 20:19 | Critical Care Consultation ---
Addendum entered and electronically signed by Macario Reveles PA-C 07/25/18 06:19 : Addendum (Blank) Addendum July 25, 2018 06:18 Original Note: Date of Consultation July 24, 2018 Assessment & Plan (1) Admitted to intensive care unit: Reason Critically Ill: 83-year-old female with acute altered mental status in the setting of severe dehydration, hypernatremia, sepsis, UTI, and metabolic encephalopathy. Neuro - * [facility] ICU: POSITIVE * Altered Mental Status/Encephalopathy: * Multifactorial - MANJULA on CKD, UTI, Sepsis from unknown source, generalized declining state of health. Cardiac - * Hypotension: * At baseline. Worsening w/ presumed sepsis. * Continue home Midodrine * Vasopressors as needed. * A. Fib: * Continue home Amiodarone. * Monitor on tele. Respiratory - * Acute on Chronic Respiratory Failure - Tracheostomy Dependent: * Bronched on arrival to the ICU. * BALs pending. * Will add Caspofungin for ??Rabia infection. * Cover for Pseudomonas * Placed on CPAP fro trach with pressure support. GI - * Concerns for Cholecystitis on US: * Will cover with IV antibiotics at this time. * Will consult General Surgery. * Patient too frail to undergo emergent intervention at this point. * Consider HIDA in the event that she shows s/s of clinical improvement. * Tube Feeds - progress to goal. RENAL/LYTES - * MANJULA on CKD w/ c/o significant dehydration and Hypernatremia: * Plan to attempt aggressive IVF resuscitation w/ respect for patient's h/o CHF. * IVF: LR@100mL/hr - * UTI: * Awaiting culture. * Initially placed on Rocephin. * Will broaden - see ID * Mahoney Catheter in place. ENDO - * No h/o DM. * Monitor BSGs in the high stress state. * Hypothyroidism: * Continue home Levothyroxine dose. HEME - * Stable H&H * Will trend ID - * Sepsis from Unspecified source: * Likely UTI, howeever, also at risk for airway infection given chronic trach state w/ recent SNF stay. * ??Brittaney on US - will need to address as well. * Will stop Rocephin. * Will add Zosyn for additional anaerobic and pseudomonal coverage. * Will add ceftazidime for dual pseudomonal coverage in the trach dependent patient w/ recent SNF stay. * Will add Vanco given positive nasal swab and high risk. * Caspofungin added for lung coverage as well. * Add ProCal * Trend Lactate * BAL pending. LINES/IV ACCESS - * PIVs x2 * RIGHT IJ CVL * Mahoney * Trach DVT PROPHYLAXIS - * SCDs * Chemoprophylaxis held earlier in this admission w/ c/o bleeding in the airway. I have personally spent 45 minutes of critical care time in the direct management of this patient. This is a life/limb threatening event. This includes time spent evaluating patient, direct bedside care, chart review, placing orders, interpretation of diagnostic studies, discussion with consultants, patient, and family members, as well as other required patient management activities. This time is exclusive of all separately billable procedures, and teaching time and separate from and in addition to any other critical care service time. Thank you for allowing us to participate in the care of this patient. Please refer to my attending physician's documentation for any further recommendations. (2) Sepsis: (3) Metabolic encephalopathy: (4) Hemoptysis: (5) Goals of care, counseling/discussion: (6) MANJULA (acute kidney injury): (7) UTI (urinary tract infection): (8) Tracheostomy in place: (9) Atrial fibrillation: (10) Severe protein-calorie malnutrition: (11) Hypernatremia: Supervising Physician Co-Signing Physician Notes I initially saw this patient at [phone] at which point I transition care to Mr. Reveles. Patient most likely has sepsis secondary to urinary source, performed a bronchoscopy to evaluate for possible airway infections, she has had multidrug- resistant organisms previously and is at risk given her trach dependence. Additional history obtained from the patient's primary caregiver reported that the patient had been discharged from [facility] and had been residing back at home. There was a period of a couple of days that the patient was not receiving humidified oxygen secondary to a malfunction in their humidifier. I suspect this is contributed to drying of the upper airways and the evidence of tracheitis seen on bronchoscopy. The tissues were easily friable and given the significant hypernatremia and dehydration has only compounded the injury from desiccation of the tissues. Patient was placed on a ventilator for work of breathing and a lactic acidosis. I am concerned about protein calorie malnutrition and overall poor prognosis. Patient has bedsores and is severely dehydrated upon presentation, I am concerned about the amount and quality of care she is able to receive outside of a [place] [facility] facility. I am concerned given her recent acute renal failure episode that this may be an nonrecoverable hit to the kidneys and would certainly then represent a end-stage medical condition. Palliative care has been involved previously numerous times patient has had her CODE STATUS changed. At this point she is a full code and full aggressive treatment including heroic measures will be undertaken. I have personally spent 50 minutes of critical care time in the direct management of this patient. This is a life/limb threatening event. This includes time spent evaluating patient, direct bedside care, chart review, placing orders, interpretation of diagnostic studies, discussion with consultants, patient, and/or family members regarding treatment decisions, as well as other required patient management activities. This time is exclusive of all separately billable procedures, and teaching time and separate from and in addition to any other critical care service time. History of Present Illness Attending Physician: Patient is an 83-year-old female with a significant past medical history of A. fib, chronic kidney disease, COPD, chronic hypotension, and trach dependent who was initially admitted for dehydration and altered mental status. She was found to be persistently hypotensive on the floor and subsequently transferred to the ICU for further evaluation and management. Prior to this admission, the patient had a recent stent at [facility]. 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 On evaluation, the patient is unable to appreciate an assessment secondary to altered mental status. Family is not present for evaluation at this point. History of present illness is limited secondary to patient's altered mental status. Allergies Allergy/AdvReac Type Severity Reaction Status Date / Time adhesive Allergy Severe TAPE-REDNESS, Verified 03/19/18 10:33 BLISTERS pneumococcal vaccine Allergy Severe SHORTNESS Verified 03/19/18 10:33 OF BREATH phenazopyridine Allergy Intermediate abdominal Verified 03/19/18 10:33 pain/rash erythromycin base Allergy Mild RASH Verified 03/19/18 10:33 metronidazole Allergy Mild skin rash Verified 07/23/18 22:10 salicylates Allergy Unknown pt states Verified 03/19/18 10:33 rash with ASA 325 but not ASA 81mg Sulfa (Sulfonamide Allergy Unknown ON MED LIST Verified 03/19/18 10:33 Antibiotics) tetracycline Allergy Unknown RASH Verified 03/19/18 10:33 morphine AdvReac Intermediate urinary Verified 03/19/18 10:33 retention -oral morphine only diltiazem AdvReac Mild FLUID Verified 03/19/18 10:33 RETENTION metoclopramide AdvReac Mild TREMORS Verified 03/19/18 10:33 bacitracin AdvReac Unknown "MAKES IT Verified 03/19/18 10:33 WORSE"-OK IF NOT OTC MEDICATION Home Medications Home Medications Medication Instructions Recorded Confirmed Type acetaminophen 325 mg capsule 650 mg PO BID PRN cap 05/25/18 07/23/18 History amiodarone 200 mg tablet 200 mg PO DAILY 05/25/18 07/23/18 History bisacodyl 10 mg rectal suppository 10 mg UT .q24 PRN ea 05/25/18 07/23/18 History calcitriol 0.25 mcg capsule 0.25 mcg PO DAILY cap 05/25/18 07/23/18 History cholecalciferol (vitamin D3) 2,000 2,000 units PO DAILY 05/25/18 07/23/18 History unit capsule citalopram 20 mg tablet 30 mg PO DAILY tab 05/25/18 07/23/18 History dexlansoprazole 60 mg 60 mg PO DAILY 05/25/18 07/23/18 History capsule,biphase delayed release diclofenac 1 % topical gel 2 gm TOPICAL QID 05/25/18 07/23/18 History gabapentin 300 mg capsule 300 mg PO QPM 05/25/18 07/23/18 History ipratropium-albuterol 0.5 mg-3 3 ml INHALATION QID 05/25/18 07/23/18 History mg(2.5 mg base)/3 mL nebulization soln levothyroxine 100 mcg capsule 100 mcg PO DAILY 05/25/18 07/23/18 History linaclotide 290 mcg capsule 290 mcg PO DAILY 05/25/18 07/23/18 History mecobalamin (vitamin B12) 1,000 1,000 mcg SL DAILY 05/25/18 07/23/18 History mcg disintegrating tablet,sublingual melatonin 10 mg capsule 10 mg PO HS cap 05/25/18 07/23/18 History metoprolol succinate ER 25 mg 25 mg PO BID tab 05/25/18 07/23/18 History tablet,extended release 24 hr multivit and minerals-ferrous 15 ml PO DAILY 05/25/18 07/23/18 History gluconate 9 mg iron/15 mL oral liquid peg 400-propylene glycol (PF) 0.4 1 drops OP Q6H PRN 05/25/18 07/23/18 History %-0.3 % eye drops in a dropperette polyethylene glycol 3350 17 1 packet PO Q48H PRN gm 05/25/18 07/23/18 History gram/dose oral powder riboflavin (vitamin B2) 400 mg 400 mg PO DAILY 05/25/18 07/23/18 History tablet ropinirole 0.5 mg tablet 0.5 mg PO HS tab 05/25/18 07/23/18 History sennosides 8.6 mg tablet 8.6 mg PO BID PRN 05/25/18 07/23/18 History tramadol 50 mg tablet 50 mg PO Q6H tab 05/25/18 07/23/18 History guaifenesin [Mucinex] 1,200 mg PO Q12H PRN 07/04/18 07/23/18 History lorazepam 0.5 mg PO Q6H PRN 07/04/18 07/23/18 History midodrine 2.5 mg PO TID 07/04/18 07/23/18 History nystatin 5 ml PO QID 07/04/18 07/23/18 History potassium chloride 10 meq PO DAILY 07/04/18 07/23/18 History sucralfate [Carafate] 10 ml PO QID 07/04/18 07/23/18 History apixaban [Eliquis] 5 mg PO BID 07/23/18 07/23/18 History ferrous sulfate [iron] 325 mg PO DAILY PRN 07/23/18 07/23/18 History spironolactone 25 mg PO BID 07/23/18 07/23/18 History Patient History Social History marital status: / Current Living Situation: Family Other Information That Helps Us Care for You: No Feels Safe at Home: Yes Smoking Status: Never smoker Hx Alcohol Use: No Hx Substance Use: No Beliefs That Will Affect Care: None Communication Ability: Effective Review of Systems Unable to assess secondary to patient's mental status. Physical Exam 2 Vital Signs (Past 24 Hours): Last Vital Signs Temp 36.8 C 07/24/18 18:17 Pulse 119 H 07/24/18 18:51 Resp 32 H 07/24/18 18:51 BP 117/71 07/24/18 18:25 Pulse Ox 93 07/24/18 18:51 Physical Exam: VITAL SIGNS - Vital signs and nursing notes were reviewed. GENERAL - 83-year-old female appearing her stated age who is in no acute distress. Ill-appearing. Unable to communicate secondary to altered mental status. SKIN - Frail skin. Areas of ecchymosis appreciated. HEAD - NC/AT. EYES - PERRL with EOMI bilaterally. EARS - No deformities of external structures noted on gross examination bilaterally. NOSE - Midline and without cyanosis. MOUTH/OROPHARYNX - Without perioral cyanosis. Brownish sputum noted. Dry mucous membranes. NECK - Tracheostomy tube noted midline. Elliott-eloisa discharge noted around the trach. LUNGS - Chest wall symmetric without accessory muscle use, intercostals retractions, or central cyanosis. Normal vesicular breath sounds CTA B/L. Coarse breath sounds noted throughout. CARDIAC - RRR with S1/S2. No murmur, rubs, or gallops appreciated. ABDOMEN - Abdominal contour flat without pulsations or visible masses. BS normoactive all four quadrants. No tenderness, palpable masses, hepatosplenomegaly, or ascites noted. EXTREMITIES - Frail lower extremities noted to the lower extremities. NEUROLOGIC - Unable to assess secondary to altered mental state. _ (1) UTI (urinary tract infection) Encounter type: Hematuria presence: without hematuria Indwelling urinary catheter type: Urinary tract infection type: acute cystitis Qualified Code(s) : N30.00 - Acute cystitis without hematuria (2) Atrial fibrillation Atrial fibrillation type: chronic Qualified Code(s): I48.2 - Chronic atrial fibrillation
--- NOTE | 2018-07-24 20:22 | Procedure Note ---
Procedure Note Date of Service July 24, 2018 Procedure: Internal Jugular Central Line Placement Attending: Dr. Armas APC: Macario Reveles PA-C Indication: Central Drug Administration, Poor Venous Access, Multiple Lab Draws Necessary, etc. Anesthesia: Lidocaine 1% Consent was signed and placed on the chart prior to procedure. Indication, risks , and benefits were explained at length. A time-out was completed verifying correct patient, procedure, site, positioning , and implants(s) or special equipment if applicable. Patients LEFT Neck was cleansed and draped in the typical sterile fashion using Chloraprep. The Internal Jugular Vein and Carotid Artery were identified using ultrasound. The superficial tissue was anesthetized using 4.0 mL of 1% lidocaine without epinephrine under direct visualization with the ultrasound. After adequate anesthetization was achieved, the Internal Jugular vein was cannulated under direct ultrasound guidance using an introducer needle on a syringe. Good venous blood return was maintained prior to removal of syringe from introducer needle. Using Seldinger Technique, a guide wire was advanced through the introducer needle without resistance. The introducer needle was removed and ultrasound images were obtained of the guide wire within the Internal Jugular Vein and saved to the patients medical record. A small incision was made in penetrating fashion at the guide wire insertion site utilizing an 11 blade scalpel. The dilator was advanced to the vessel without resistance. The dilator was exchanged for the triple lumen catheter which was advanced into the vessel without resistance. The guide wire was removed intact from the catheter without issue. Claves were placed on each catheter tip with confirmation of good blood flow from each lumen. Each port was easily flushed with sterile saline. The catheter was placed at 18 cm and sutured in place. BioPatch was applied to the catheter and a sterile Tegaderm dressing was applied over the catheter with careful attention to sterility. Patient tolerated procedure well. No immediate complications were met. Post procedure x-ray was completed, placement was appropriate and no pneumothorax was noted. Images obtained are saved for permanent record Procedural Ultrasound Guidance: Procedure Date: 07/24/2018 Indication: Multiple Lab Draws, Sepsis, Need for vasoactives Attending: Dr. Armas APC: Macario Reveles PA-C Artery AND Vein visualized: YES Compressible Vein: YES Guidewire or Short Catheter seen in vein prior to dilation: YES Line confirmed in Vein with ultrasound: YES Images obtained are saved for permanent record
[2018-07-24] MEDS ORDERED: ROPINIROLE HCL 0.25 MG TABLET PO SCH (21:00)
[2018-07-24 21:07] LABS: INR 1.5 (0.9-1.1); Partial Thromboplastin Ratio 1.4; Partial Thromboplastin Time 37.1 Seconds (21.0-31.0); Prothrombin Time 15.6 Seconds (9.0-12.0)
--- NOTE | 2018-07-24 21:09 | XRay Report ---
SINGLE VIEW CHEST CLINICAL HISTORY: Central venous catheter and enteric tube placement. FINDINGS: An AP, portable, upright chest radiograph is compared to study dated 07/23/2018. Correlation is made with chest CT dated 03/24/2018. The examination is severely degraded by portable technique and patient rotation. A tracheostomy is unchanged in position. An enteric tube has been placed. This ex tends below the diaphragm. A left internal jugular central venous catheter has been placed. The tip p rojects over the SVC. The heart is top normal for projection and there is atherosclerotic calcificati on of the thoracic aorta. There is elevation of the right hemidiaphragm with right basilar consolidat ion and a small right pleural effusion. The left lung appears clear. No pneumothorax is seen. The ske letal structures are osteopenic. Bilateral shoulder arthroplasties are in place. Extensive cervical a nd thoracolumbar spinal fusion hardware is noted. There are healed left-sided rib fractures. Surgical clips are noted in the upper abdomen. IMPRESSION: 1. An enteric tube and a left internal jugular central venous catheter have been placed as detailed a fabrice. 2. No pneumothorax is identified post procedure. 3. Elevation of the right hemidiaphragm with right basilar consolidation and pleural effusion is alondra lar to previous. Electronically signed by: Justo Mejias M.D. 07/24/2018 9:08 PM
[2018-07-24] MEDS: PEPTAMEN INTENSE VHP 1.0 CAL 1,000 ML BAG NJ SCH (21:10)
[2018-07-24 21:17] LABS: iSTAT Arterial Blood Gas HCO3 25 meg/L (19-24); iSTAT Carbon Dioxide 26 mEq/l (24-31); iSTAT FiO2 40 %
--- NOTE | 2018-07-24 21:43 | Ultrasound Report ---
ULTRASOUND RIGHT UPPER QUADRANT ABDOMEN CLINICAL HISTORY: Elevated hepatic transaminases. COMPARISON STUDY: Abdominal CT dated 03/21/2018. TECHNIQUE: Real-time, grayscale, and color flow sonography of the right upper quadrant of the abdomen was performed. Images are reviewed in the transverse and longitudinal planes. FINDINGS: Liver: The liver is normal in size and demonstrates heterogeneously increased echotexture consistent with hepatic steatosis. There is no intrahepatic biliary ductal dilatation. The main portal vein is p atent. Gallbladder: The gallbladder is distended. The gallbladder is filled with sludge and small gallstones . The gallbladder wall is top normal in thickness measuring up to 3 mm. No pericholecystic fluid is s een. A sonographic Newberry's sign could not be assessed. The common bile duct measures up to 0.5 cm in diameter. Pancreas: Visualized portions of the pancreatic head and body are normal in appearance. The splenic v ein is patent. Right kidney: Survey images of the right kidney demonstrate cortical atrophy and increased echotextur e consistent with medical renal disease. There is no hydronephrosis. Ascites: None. IMPRESSION: 1. Findings are consistent with hepatic steatosis. 2. The gallbladder is distended and filled with sludge and small stones. The gallbladder wall is top normal in thickness. Findings are equivocal for acute cholecystitis which is not excluded. If there i s clinical concern for acute cholecystitis then a nuclear hepatobiliary scan should be considered. Electronically signed by: Justo Mejias M.D. 07/24/2018 9:42 PM
[2018-07-24] MEDS: GABAPENTIN 300 MG CAP PO SCH (22:29)
[2018-07-24 23:26] LABS: Influenza A virus by PCR Neg for Influ A (Neg); Influenza B virus by PCR Neg for Influ B (Neg)
[2018-07-25] MEDS ORDERED: PIPERACILL/TAZOBAC CONSULT ACTIVE PRN (02:57)
[2018-07-25] MEDS ORDERED: VANCOMYCIN CONSULT ACTIVE PRN (03:05)
[2018-07-25] MEDS ORDERED: VANCOMYCIN HCL 1,250 MG in SODIUM CHLORIDE 0.9% 250 ML IV ONE (03:30)
[2018-07-25] MEDS: PIPERACILLIN/TAZOBACTAM 3.375 GM in DEXTROSE 5% 100 ML IV SCH ×2 (04:27→16:14)
[2018-07-25] MEDS: LACTATED RINGER'S 1,000 ML IV SCH (04:29)
[2018-07-25 04:55] LABS: BUN Creatinine Ratio 12.9 (10-20); Calcium 7.9 mg/dl (8.5-10.1); Creatinine Clr Calc Pharmacy 9.7 ml/min; Est GFR (African American) 11.4; Est GFR (Non-African American) 9.8; Potassium 3.5 mmol/L (3.5-5.1)
[2018-07-25 05:15] LABS: Basophils # (auto) 0.02 K/uL (0-0.2); Basophils % (auto) 0.2 %; Hematocrit (blood only) 36.4 % (37-47); Hemoglobin 11.3 g/dL (12.0-16.0); Immature Granulocytes # (auto) 0.08 K/uL (0.00-0.02); Immature Granulocytes % (auto) 0.7 %; Lymphocytes # (auto) 1.89 K/uL (1.2-3.4); Lymphocytes % (auto) 15.4 %; Mean Corpuscular Volume 100.6 fL (80-100); Monocytes # (auto) 0.67 K/uL (0.11-0.59); Monocytes % (auto) 5.4 %; Neutrophils # (auto) 9.64 K/uL (1.4-6.5); Neutrophils % (auto) 78.3 %; Nucleated RBC # (auto) 0.11 K/uL (0-0); Nucleated RBC % (auto) 0.9 %; Platelet Count 167 K/uL (130-400); RDW Standard Deviation 66.7 fL (36.4-46.3); Red Blood Count 3.62 M/uL (4.2-5.4)
[2018-07-25] MEDS ORDERED: LACTATED RINGER'S 500 ML IV ONE (05:24)
[2018-07-25] MEDS: LEVOTHYROXINE SODIUM 100 MCG TABLET PO SCH (06:13)
[2018-07-25] MEDS: SUCRALFATE 1 GM/10 ML UDC PO SCH ×4 (07:34→20:38)
[2018-07-25] MEDS: MIDODRINE HCL 2.5 MG TAB PO SCH ×3 (07:34→16:15)
[2018-07-25] MEDS: CITALOPRAM 20 MG TAB PO SCH (07:34)
[2018-07-25] MEDS: CALCITRIOL 0.25 MCG CAPSULE PO SCH (07:35)
[2018-07-25] MEDS: NYSTATIN SUSP 500,000 U/5 ML UDC PO SCH ×4 (07:35→20:39)
[2018-07-25] MEDS: AMIODARONE 200 MG TAB PO SCH (07:35)
[2018-07-25] MEDS: PANTOprazole 40 MG TAB PO SCH (07:35)
[2018-07-25] MEDS: DICLOFENAC SOD 1% GEL 100 GM TUBE EXT SCH ×4 (07:36→20:37)
[2018-07-25] MEDS: IPRATROPIUM BROMIDE HFA INHALER INH SCH ×4 (08:45→16:23)
[2018-07-25] MEDS ORDERED: CEFEPIME 500 MG in SYRINGE 0 ML IV SCH (09:00)
[2018-07-25] MEDS ORDERED: ALBUTEROL HFA 8 GM INHALER INH SCH (09:00)
[2018-07-25 09:20] LABS: Albumin Level 1.7 gm/dl (3.4-5.0); Bilirubin Direct 0.2 mg/dl (0-0.2); Bilirubin,Total 0.8 mg/dl (0.1-1); Total Protein 5.2 gm/dl (6.4-8.2); Troponin I 0.031 ng/ml (0-0.045)
[2018-07-25] MEDS: THIAMINE HCL 100 MG in SYRINGE 9 ML IV SCH (09:22)
[2018-07-25] MEDS: SODIUM CHLORIDE 0.45 % 1,000 ML IV SCH ×3 (09:46→22:40)
[2018-07-25] MEDS ORDERED: NOREPINEPHRINE BIT INJ 8 MG in DEXTROSE 5% 500 ML IV SCH (11:06)
[2018-07-25] MEDS ORDERED: NORMOSOL-R 1,000 ML IV ONE ×2 (11:15→12:25)
[2018-07-25] MEDS: ALBUTEROL HFA 8 GM INHALER INH SCH ×2 (12:13→16:23)
--- NOTE | 2018-07-25 12:50 | Palliative Care Progress Note ---
Date of Service July 25, 2018 Assessment & Plan (1) Goals of care, counseling/discussion: -Complicated 83 year old with chronic respiratory failure with trach, chronic diastolic CHF, COPD, depression, severe protein-calorie malnutrition, and others presented with hemoptysis and altered mental status. Daughter, whom patient lives with, reports increased oxygen requirement. CXR shows no pneumonia. Elevated BUN/creatinine likely due to dehydration. Does have UTI. Patient has had frequent readmissions, is severe deconditioned and frail, has been losing weight. Very poor prognosis. -Last evening patient continued to decompensate and was transferred to ICU, now on ventilator via trach. -Today 07/25, patient with worsening kidney function, creatinine increased from 2.98 to 4.02 with associated oliguria. Nephrology consulted. -Surgery consulted for possible gall bladder issues, HIDA scan ordered and to be done tomorrow. Grisel would want surgery done if that is in fact indicated. -Lengthy discussion led by Dr. Armas with bj's daughter/POA, Grisel Philip, along with myself, Tomás Slater marketing sales manager, and Dr. Jeronimo. -Grisel verbalized understanding of patient's critical illness and poor long- term prognosis. She is unsure if patient would ever want to undergo dialysis but stated, "probably not. I just need to check with the other two (referring to her brother and sister)." -Grisel did produce a POLST form that was signed by the patient which stated DNR , comfort measures only but continue regular medications if able to take PO, abx with comfort as the goal and abx if life can be prolonged, and trial period of artificial fluids/nutrition. -We discussed CODE STATUS, and Grisel stated that at this point if patient undergoes cardiac arrest she would NOT want CPR to be done and would want us to allow natural . We will change patient to DNR. -Patient remains obtunded, is moving her extremities but not to command. -Continue current treatment for now. (2) Sepsis: -UTI or pulmonary source. -Requiring norepinephrine to maintain BP. -On IV abx and antifungal. (3) Metabolic encephalopathy: -Multifactorial. Possibly due to UTI and dehydration. (4) Hemoptysis: -Bloody secretions noted on suction via trach. -Hgb stable at 13.8. -Could be from dry mucosa per the daughter, humidified oxygen was not working at home. -Bronchoscopy was completed yesterday which did show dry tracheal mucosa. Airway was friable, that is likely due to the lack of humidification. -Pulmonary consulted. (5) MANJULA (acute kidney injury): -CKD stage III at baseline. -Creatinine 2.07 on admission, 4.02 today. -Could be secondary to dehydration. BUN 52 today. -NS at 150ml/hr. (6) Atrial fibrillation: -Rate-controlled. -Chronic. (7) Chronic diastolic CHF (congestive heart failure): -Stable and chronic. (8) UTI (urinary tract infection): -UA positive. -Rabia albicans. -IV abx and antifungal. (9) Chronic kidney disease, stage III (moderate): As above (10) Depression: -Stable and chronic -On Celexa. Subjective Condition has worsened. Patient now septic, decompensated and transferred to ICU last evening. Still obtunded. Daughter/POAGrisel, at bedside. Family meeting held with ICU team. See A&P. Review of Systems Unobtainable due to cognitive status Physical Exam 2 Vital Signs (Past 24 Hours): Last Vital Signs Temp 37.8 C H 07/25/18 07:00 Pulse 95 H 07/25/18 09:00 Resp 16 07/25/18 11:54 BP 86/52 L 07/25/18 09:00 Pulse Ox 97 07/25/18 09:00 Constitutional: + ill appearing and + frail appearing; + not well nourished and no acute distress ENMT: Mouth: + dry oral mucous membranes (has some dried dark crusting around mouth. uncertain if old blood or sputum or both.) Neck: trachea midline and + tracheostomy present Respiratory: normal respiratory effort; no respiratory distress Auscultation: + diminished lung sounds Cardiovascular: RRR, no murmur, no edema Gastrointestinal (Abdomen): Inspection/Auscultation: normal bowel sounds; abdomen not distended Percussion/Palpation: abdomen soft Skin: + ecchymosis (thin fragile skin) Neurologic: + obtunded Time Spent Midlevel 65 minutes with >50% of time spent at bedside with patient and family discussing condition and GOC as well as family meeting with ICU team. _ (1) Atrial fibrillation Atrial fibrillation type: chronic Qualified Code(s): I48.2 - Chronic atrial fibrillation (2) UTI (urinary tract infection) Urinary tract infection type: acute cystitis Hematuria presence: without hematuria Indwelling urinary catheter type: Encounter type: Qualified Code( s): N30.00 - Acute cystitis without hematuria (3) Depression Depression Type: major depressive disorder Major depression recurrence: unspecified whether recurrent Active/Remission status: currently active Major depression episode severity: moderate Psychotic features: Trimester: Qualified Code(s): F32.1 - Major depressive disorder, single episode, moderate
[2018-07-25] MEDS ORDERED: ICU PROTOCOL FOR HYPERGLYCEMIA PRN (14:10)
--- NOTE | 2018-07-25 14:28 | Pharmacy Report ---
Pharmacy Abx Dose Short Note - Date of Service July 25, 2018 - Assessment & Plan Assessment * 83 year old F admitted for hemoptysis, sepsis from possible urinary vs pulmonary vs GI source, severe dehydration, hypernatremia, MANJULA, and metabolic encephalopathy * Empiric abx therapy initiated: VANCOMYCIN + ZOSYN + CASPOFUNGIN - dosing per pharmacy * UA suggestive of UTI however no bacteria, but budding yeast present * CXR read at R basilar consolidation + pleural effusion * GB ultrasound equivocal for cholecystitis (distended and sludge/stones present ) * BAL cx's and BLCX's drawn * MANJULA worsening despite fluid resuscitation, UO only 75cc in 12 hrs this AM and SCr increasing 2.98-->4.02; eCrCl < 15cc/min Plan Vancomycin * + MRSA nasal swab * 1250mg (19.2mg/kg) IV x 1 given this AM * Estimated half-life > 24 hrs * Will follow random AM levels to guide redosing * Goal trough 15-20mcg/mL for pulm infxn / sepsis Zosyn * Receiving 3.375gm ext-infusion IV Q 12 hrs; BMI < 35, eCrCl < 20 - continue the same Caspofungin * 70mg IV load x 1 given this AM, then 50mg IV Q 24 hrs ordered. No adjustment required for current renal/hepatic fxn Pharmacy will continue to follow and will adjust dose/frequency as necessary. Thank you.
--- NOTE | 2018-07-25 15:27 | Critical Care Progress Note ---
Date of Service July 25, 2018 Assessment & Plan (1) Metabolic encephalopathy: 83-year-old female admitted on 23 July 2018 and transferred to the ICU on due to altered mental status in the setting of metabolic encephalopathy, severe dehydration, and sepsis. 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 Metabolic encephalopathy with no noted improvement over the past 24 hours. History of depression. Is on Celexa, Neurontin, and Requip. Gabapentin is being held. Was given thiamine. Pulm: Acute on chronic respiratory failure, tracheostomy dependent. fiberoptic bronchoscopy noted tracheitis and suggested candidiasis (see full report). CXR is consistent with right basilar consolidation and effusion. She remains on scheduled albuterol and Atrovent. CVS: PMH hypertension, continue home midodrine. Vasopressors as needed related to sepsis. PMH afib, continue home amiodarone, in NSR on EKG here today. Not on heparin due to previous bleeding. PMH chronic diastolic congestive heart failure. Initial profound dehydration, receiving IVF rehydration with a goal CVP of 10-15. - QTc 482. Will recheck EKG. ID: Sepsis of unclear source. Stable lactate. Mildly elevated pro-calcitonin. On BCx NGTD. UCx grew Rabia. blood fungal culture pending. bronchial washings grew staph aureus with pending AFB smears and fungal cultures. Presently on caspofungin and Zosyn. [No Diflucan due to QTc prolongation concerns.] Flu negative but nasal MRSA positive. Endo: PMH hypothyroidism and thyroid cancer, on home Synthroid. Monitoring blood sugars, no known diabetes. Renal/Lytes: - Acute kidney injury in the setting of CKD stage III. FeNa suggests prerenal. Ongoing rehydration. Recent poor UOP. Nephrology consulted. - Hypernatremia, as high as Na 160. On half-normal saline at 150 mL an hour. Close monitoring. GI: Elevated AP with a thickened gallbladder wall on u/s makes acute cholecystitis possible. However, patient also may just be third spacing. Consulting general surgery. Likely go for HIDA scan tomorrow morning. NPO at midnight, peptamin before that. On protonix. Heme: Was noted to have some hemoptysis/bloody secretions on early admission due to tracheitis (reports of running out of home humidification previously). Hemoglobin stable at present. INR of 1.5. DVT prophy: SCDs. Chemoprophylaxis held due to bleeding during early admit days. Skin: Please see wound pictures. Her decubitus ulcers are likely chronic and partially reflective of her poor nutrition status. Significant concerns that they would not heal if even surgically debrided / treated. Lines: 24 July right IJ CVL. Mahoney catheter, indwelling trach. PIV x2. Code status: Please see palliative care's note regarding the family meeting that occurred today around noon. Patient is presently DNR in the event of cardiac arrest. PT/OT: Held for now. Disposition: Critically ill. Prior resident of [facility], but had been at home for about 3 weeks prior to admission. (2) Depression: (3) Hypotension: (4) History of hypertension: (5) Atrial fibrillation: (6) Chronic diastolic CHF (congestive heart failure): (7) Candidal urinary tract infection: (8) Pneumonia due to Staphylococcus species involving left lung: (9) MRSA nasal colonization: (10) Hypothyroidism: (11) MANJULA (acute kidney injury): (12) Chronic kidney disease, stage III (moderate): (13) Dehydration: (14) Hypernatremia: (15) Tracheostomy in place: (16) Tracheitis: (17) Elevated alkaline phosphatase level: (18) Decubitus ulcer: (19) Sepsis: (20) Severe protein-calorie malnutrition: (21) GERD (gastroesophageal reflux disease): Supervising Physician Co-Signing Physician Notes Dr. Jeronimo was resident physician during care of patient. I separately evaluated patient for alexander portions of the history and the exam. I was present during the critical portion of medical decision making, and I discussed the case with the resident. I generally agree with the findings and plan. Patient was discussed in multidisciplinary rounds Patient's creatinine continues to climb, I have discussed the case with Dr. Chow of nephrology. Procalcitonin is elevated, if this represents infection is most likely from the urine however cultures remain negative to date, there is consideration of cholecystitis given findings of a thickened wall but that may be secondary to anasarca. Will follow up a HIDA scan tomorrow. Staff is very familiar with the patient and she has apparently had a rapid decline in her functional status. There is evidence of severe protein calorie malnutrition with profound hypoalbuminemia and impaired wound healing especially is noticed with if she will decubiti as well as presacral decubiti. I discussed at length with the patient's daughter Delores regarding long-term prognosis. It was felt that if the patient were to undergo cardiac arrest and survive the subsequent iatrogenic injuries associated from the resuscitative process would likely be nonsurvivable or at least not in accordance with the patient's wishes and accordingly she has been made a DO NOT RESUSCITATE. She still appears to be responding to crystalloid infusions. If the patient does recover from this, I would again strongly suggest a senior care facility that might be able to best manage the patient's multiple comorbidities. I have personally spent 40 minutes of critical care time in the direct management of this patient. This is a life/limb threatening event. This includes time spent evaluating patient, direct bedside care, chart review, placing orders, interpretation of diagnostic studies, discussion with consultants, patient, and/or family members regarding treatment decisions, as well as other required patient management activities. This time is exclusive of all separately billable procedures, and teaching time and separate from and in addition to any other critical care service time. Subjective Found patient appearing comfortable in bed but remains obtunded. Physical Exam 2 Vital Signs (Past 24 Hours): Last Vital Signs Temp 36.9 C 07/25/18 12:00 Pulse 95 H 07/25/18 14:01 Resp 16 07/25/18 14:33 BP 116/59 L 07/25/18 14:01 Pulse Ox 98 07/25/18 14:01 Physical Exam: General Appearance: Obtunded, ill and frail appearing, but does not appear in acute distress Mouth: Dry oral mucous membranes. CV: +S1S2 RRR, no murmur. Pulm: Clear to auscultation throughout. Tracheostomy at midline. Abdomen: +BS, soft, non-distended. Thin habitus. Extremities: Some areas of ecchymosis. Neuro: Unable to assess due to not following commands. Results & Data Laboratory Results 07/25/18 07/25/18 07/25/18 Range/Units 14:52 11:44 08:37 WBC (4.8-10.8) K/uL RBC (4.2-5.4) M/uL Hgb (12.0-16.0) g/dL Hct (37-47) % MCV (80-100) fL MCH (25-34) pg MCHC (32-36) g/dL RDW Std Deviation (36.4-46.3) fL RDW Coeff of Cem (11.5-14.5) % Plt Count (130-400) K/uL MPV (7.4-10.4) fL Immature Gran % (Auto) % Neut % (Auto) % Lymph % (Auto) % [place] % (Auto) % Eos % (Auto) % Baso % (Auto) % Immature Gran # (Auto) (0.00-0.02) K/uL Neut # (Auto) (1.4-6.5) K/uL Lymph # (Auto) (1.2-3.4) K/uL [place] # (Auto) (0.11-0.59) K/uL Eos # (Auto) (0-0.5) K/uL Baso # (Auto) (0-0.2) K/uL Absolute Nucleated RBC (0-0) K/uL Nucleated RBC % (auto) % PT (9.0-12.0) Seconds INR (0.9-1.1) APTT (21.0-31.0) Seconds PTT Ratio Sample Site POC pH (7.35-7.45) POC pCO2 (35-46) mmHg POC pO2 (80-95) mmHg POC HCO3 (19-24) galina/L POC Total CO2 (24-31) mEq/l POC Base Excess (-9-1.8) galina/L POC ABG O2 Sat (90-95) % John Test O2 Delivery Device POC FiO2 % PEEP Sodium Pending (136-145) mmol/L Potassium Pending (3.5-5.1) mmol/L Chloride Pending (98-107) mmol/L Carbon Dioxide Pending (21-32) mmol/L Anion Gap Pending (3-11) BUN Pending (7-18) mg/dl Creatinine Pending (0.6-1.2) mg/dl Est Cr Clr Drug Dosing Pending ml/min Est GFR ( Amer) Pending Est GFR (Non-Af Amer) Pending BUN/Creatinine Ratio Pending (10-20) Glucose Pending (70-99) mg/dl POC Glucose 139 H (70-99) Osmolality (280-300) mOsm/kg Lactate (0.4-2.0) mmol/L Calcium Pending (8.5-10.1) mg/dl Total Bilirubin 0.8 (0.1-1) mg/dl Direct Bilirubin 0.2 (0-0.2) mg/dl AST 30 (15-37) U/L ALT 16 (12-78) U/L Alkaline Phosphatase 153 H (45-117) U/L Troponin I 0.031 (0-0.045) ng/ml Total Protein 5.2 L D (6.4-8.2) gm/dl Albumin 1.7 L (3.4-5.0) gm/dl Procalcitonin (0-0.5) ng/ml Random Cortisol mcg/dl Nasal Screen MRSA (PCR) (Negative) Influenza Type A (PCR) (Neg) Influenza Type B (PCR) (Neg) 07/25/18 07/25/18 07/25/18 Range/Units 04:18 04:17 04:17 WBC 12.30 H (4.8-10.8) K/uL RBC 3.62 L (4.2-5.4) M/uL Hgb 11.3 L (12.0-16.0) g/dL Hct 36.4 L (37-47) % MCV 100.6 H (80-100) fL MCH 31.2 (25-34) pg MCHC 31.0 L (32-36) g/dL RDW Std Deviation 66.7 H (36.4-46.3) fL RDW Coeff of Cem 18.0 H (11.5-14.5) % Plt Count 167 (130-400) K/uL MPV 13.0 H (7.4-10.4) fL Immature Gran % (Auto) 0.7 % Neut % (Auto) 78.3 % Lymph % (Auto) 15.4 % [place] % (Auto) 5.4 % Eos % (Auto) 0.0 % Baso % (Auto) 0.2 % Immature Gran # (Auto) 0.08 H (0.00-0.02) K/uL Neut # (Auto) 9.64 H (1.4-6.5) K/uL Lymph # (Auto) 1.89 (1.2-3.4) K/uL [place] # (Auto) 0.67 H (0.11-0.59) K/uL Eos # (Auto) 0.00 (0-0.5) K/uL Baso # (Auto) 0.02 (0-0.2) K/uL Absolute Nucleated RBC 0.11 H (0-0) K/uL Nucleated RBC % (auto) 0.9 % PT (9.0-12.0) Seconds INR (0.9-1.1) APTT (21.0-31.0) Seconds PTT Ratio Sample Site POC pH (7.35-7.45) POC pCO2 (35-46) mmHg POC pO2 (80-95) mmHg POC HCO3 (19-24) galina/L POC Total CO2 (24-31) mEq/l POC Base Excess (-9-1.8) galina/L POC ABG O2 Sat (90-95) % John Test O2 Delivery Device POC FiO2 % PEEP Sodium (136-145) mmol/L Potassium (3.5-5.1) mmol/L Chloride (98-107) mmol/L Carbon Dioxide (21-32) mmol/L Anion Gap (3-11) BUN (7-18) mg/dl Creatinine (0.6-1.2) mg/dl Est Cr Clr Drug Dosing ml/min Est GFR ( Amer) Est GFR (Non-Af Amer) BUN/Creatinine Ratio (10-20) Glucose (70-99) mg/dl POC Glucose (70-99) Osmolality (280-300) mOsm/kg Lactate 2.4 H* (0.4-2.0) mmol/L Calcium (8.5-10.1) mg/dl Total Bilirubin (0.1-1) mg/dl Direct Bilirubin (0-0.2) mg/dl AST (15-37) U/L ALT (12-78) U/L Alkaline Phosphatase (45-117) U/L Troponin I (0-0.045) ng/ml Total Protein (6.4-8.2) gm/dl Albumin (3.4-5.0) gm/dl Procalcitonin 0.95 H (0-0.5) ng/ml Random Cortisol mcg/dl Nasal Screen MRSA (PCR) (Negative) Influenza Type A (PCR) (Neg) Influenza Type B (PCR) (Neg) 07/25/18 07/25/18 07/25/18 Range/Units 04:17 01:14 00:57 WBC (4.8-10.8) K/uL RBC (4.2-5.4) M/uL Hgb (12.0-16.0) g/dL Hct (37-47) % MCV (80-100) fL MCH (25-34) pg MCHC (32-36) g/dL RDW Std Deviation (36.4-46.3) fL RDW Coeff of Cem (11.5-14.5) % Plt Count (130-400) K/uL MPV (7.4-10.4) fL Immature Gran % (Auto) % Neut % (Auto) % Lymph % (Auto) % [place] % (Auto) % Eos % (Auto) % Baso % (Auto) % Immature Gran # (Auto) (0.00-0.02) K/uL Neut # (Auto) (1.4-6.5) K/uL Lymph # (Auto) (1.2-3.4) K/uL [place] # (Auto) (0.11-0.59) K/uL Eos # (Auto) (0-0.5) K/uL Baso # (Auto) (0-0.2) K/uL Absolute Nucleated RBC (0-0) K/uL Nucleated RBC % (auto) % PT (9.0-12.0) Seconds INR (0.9-1.1) APTT (21.0-31.0) Seconds PTT Ratio Sample Site POC pH (7.35-7.45) POC pCO2 (35-46) mmHg POC pO2 (80-95) mmHg POC HCO3 (19-24) galina/L POC Total CO2 (24-31) mEq/l POC Base Excess (-9-1.8) galina/L POC ABG O2 Sat (90-95) % John Test O2 Delivery Device POC FiO2 % PEEP Sodium 159 H* (136-145) mmol/L Potassium 3.5 (3.5-5.1) mmol/L Chloride 123 H (98-107) mmol/L Carbon Dioxide 27 (21-32) mmol/L Anion Gap 9.0 (3-11) BUN 52 H (7-18) mg/dl Creatinine 4.02 H D (0.6-1.2) mg/dl Est Cr Clr Drug Dosing 9.7 ml/min Est GFR ( Amer) 11.4 Est GFR (Non-Af Amer) 9.8 BUN/Creatinine Ratio 12.9 (10-20) Glucose 156 H (70-99) mg/dl POC Glucose 144 H (70-99) Osmolality (280-300) mOsm/kg Lactate (0.4-2.0) mmol/L Calcium 7.9 L (8.5-10.1) mg/dl Total Bilirubin (0.1-1) mg/dl Direct Bilirubin (0-0.2) mg/dl AST (15-37) U/L ALT (12-78) U/L Alkaline Phosphatase (45-117) U/L Troponin I 0.035 (0-0.045) ng/ml Total Protein (6.4-8.2) gm/dl Albumin (3.4-5.0) gm/dl Procalcitonin (0-0.5) ng/ml Random Cortisol mcg/dl Nasal Screen MRSA (PCR) (Negative) Influenza Type A (PCR) (Neg) Influenza Type B (PCR) (Neg) 07/24/18 07/24/18 07/24/18 Range/Units 21:45 21:45 21:04 WBC (4.8-10.8) K/uL RBC (4.2-5.4) M/uL Hgb (12.0-16.0) g/dL Hct (37-47) % MCV (80-100) fL MCH (25-34) pg MCHC (32-36) g/dL RDW Std Deviation (36.4-46.3) fL RDW Coeff of Cem (11.5-14.5) % Plt Count (130-400) K/uL MPV (7.4-10.4) fL Immature Gran % (Auto) % Neut % (Auto) % Lymph % (Auto) % [place] % (Auto) % Eos % (Auto) % Baso % (Auto) % Immature Gran # (Auto) (0.00-0.02) K/uL Neut # (Auto) (1.4-6.5) K/uL Lymph # (Auto) (1.2-3.4) K/uL [place] # (Auto) (0.11-0.59) K/uL Eos # (Auto) (0-0.5) K/uL Baso # (Auto) (0-0.2) K/uL Absolute Nucleated RBC (0-0) K/uL Nucleated RBC % (auto) % PT (9.0-12.0) Seconds INR (0.9-1.1) APTT (21.0-31.0) Seconds PTT Ratio Sample Site R Brachial POC pH 7.44 (7.35-7.45) POC pCO2 37 (35-46) mmHg POC pO2 96 H (80-95) mmHg POC HCO3 25 H (19-24) galina/L POC Total CO2 26 (24-31) mEq/l POC Base Excess 1.0 (-9-1.8) galina/L POC ABG O2 Sat 98.0 H (90-95) % John Test NA O2 Delivery Device Ventilator POC FiO2 40 % PEEP 10 Sodium (136-145) mmol/L Potassium (3.5-5.1) mmol/L Chloride (98-107) mmol/L Carbon Dioxide (21-32) mmol/L Anion Gap (3-11) BUN (7-18) mg/dl Creatinine (0.6-1.2) mg/dl Est Cr Clr Drug Dosing ml/min Est GFR ( Amer) Est GFR (Non-Af Amer) BUN/Creatinine Ratio (10-20) Glucose (70-99) mg/dl POC Glucose (70-99) Osmolality (280-300) mOsm/kg Lactate (0.4-2.0) mmol/L Calcium (8.5-10.1) mg/dl Total Bilirubin (0.1-1) mg/dl Direct Bilirubin (0-0.2) mg/dl AST (15-37) U/L ALT (12-78) U/L Alkaline Phosphatase (45-117) U/L Troponin I (0-0.045) ng/ml Total Protein (6.4-8.2) gm/dl Albumin (3.4-5.0) gm/dl Procalcitonin (0-0.5) ng/ml Random Cortisol mcg/dl Nasal Screen MRSA (PCR) Positive A (Negative) Influenza Type A (PCR) Neg for Influ A (Neg) Influenza Type B (PCR) Neg for Influ B (Neg) 07/24/18 07/24/18 07/24/18 Range/Units 20:40 20:40 20:40 WBC (4.8-10.8) K/uL RBC (4.2-5.4) M/uL Hgb (12.0-16.0) g/dL Hct (37-47) % MCV (80-100) fL MCH (25-34) pg MCHC (32-36) g/dL RDW Std Deviation (36.4-46.3) fL RDW Coeff of Cem (11.5-14.5) % Plt Count (130-400) K/uL MPV (7.4-10.4) fL Immature Gran % (Auto) % Neut % (Auto) % Lymph % (Auto) % [place] % (Auto) % Eos % (Auto) % Baso % (Auto) % Immature Gran # (Auto) (0.00-0.02) K/uL Neut # (Auto) (1.4-6.5) K/uL Lymph # (Auto) (1.2-3.4) K/uL [place] # (Auto) (0.11-0.59) K/uL Eos # (Auto) (0-0.5) K/uL Baso # (Auto) (0-0.2) K/uL Absolute Nucleated RBC (0-0) K/uL Nucleated RBC % (auto) % PT 15.6 H (9.0-12.0) Seconds INR 1.5 H (0.9-1.1) APTT 37.1 H (21.0-31.0) Seconds PTT Ratio 1.4 Sample Site POC pH (7.35-7.45) POC pCO2 (35-46) mmHg POC pO2 (80-95) mmHg POC HCO3 (19-24) galina/L POC Total CO2 (24-31) mEq/l POC Base Excess (-9-1.8) galina/L POC ABG O2 Sat (90-95) % John Test O2 Delivery Device POC FiO2 % PEEP Sodium (136-145) mmol/L Potassium (3.5-5.1) mmol/L Chloride (98-107) mmol/L Carbon Dioxide (21-32) mmol/L Anion Gap (3-11) BUN (7-18) mg/dl Creatinine (0.6-1.2) mg/dl Est Cr Clr Drug Dosing ml/min Est GFR ( Amer) Est GFR (Non-Af Amer) BUN/Creatinine Ratio (10-20) Glucose (70-99) mg/dl POC Glucose (70-99) Osmolality 344 H (280-300) mOsm/kg Lactate (0.4-2.0) mmol/L Calcium (8.5-10.1) mg/dl Total Bilirubin (0.1-1) mg/dl Direct Bilirubin (0-0.2) mg/dl AST (15-37) U/L ALT (12-78) U/L Alkaline Phosphatase (45-117) U/L Troponin I 0.030 (0-0.045) ng/ml Total Protein (6.4-8.2) gm/dl Albumin (3.4-5.0) gm/dl Procalcitonin (0-0.5) ng/ml Random Cortisol mcg/dl Nasal Screen MRSA (PCR) (Negative) Influenza Type A (PCR) (Neg) Influenza Type B (PCR) (Neg) 07/24/18 07/24/18 Range/Units 20:40 20:40 WBC (4.8-10.8) K/uL RBC (4.2-5.4) M/uL Hgb (12.0-16.0) g/dL Hct (37-47) % MCV (80-100) fL MCH (25-34) pg MCHC (32-36) g/dL RDW Std Deviation (36.4-46.3) fL RDW Coeff of Cem (11.5-14.5) % Plt Count (130-400) K/uL MPV (7.4-10.4) fL Immature Gran % (Auto) % Neut % (Auto) % Lymph % (Auto) % [place] % (Auto) % Eos % (Auto) % Baso % (Auto) % Immature Gran # (Auto) (0.00-0.02) K/uL Neut # (Auto) (1.4-6.5) K/uL Lymph # (Auto) (1.2-3.4) K/uL [place] # (Auto) (0.11-0.59) K/uL Eos # (Auto) (0-0.5) K/uL Baso # (Auto) (0-0.2) K/uL Absolute Nucleated RBC (0-0) K/uL Nucleated RBC % (auto) % PT (9.0-12.0) Seconds INR (0.9-1.1) APTT (21.0-31.0) Seconds PTT Ratio Sample Site POC pH (7.35-7.45) POC pCO2 (35-46) mmHg POC pO2 (80-95) mmHg POC HCO3 (19-24) galina/L POC Total CO2 (24-31) mEq/l POC Base Excess (-9-1.8) galina/L POC ABG O2 Sat (90-95) % John Test O2 Delivery Device POC FiO2 % PEEP Sodium (136-145) mmol/L Potassium (3.5-5.1) mmol/L Chloride (98-107) mmol/L Carbon Dioxide (21-32) mmol/L Anion Gap (3-11) BUN (7-18) mg/dl Creatinine (0.6-1.2) mg/dl Est Cr Clr Drug Dosing ml/min Est GFR ( Amer) Est GFR (Non-Af Amer) BUN/Creatinine Ratio (10-20) Glucose (70-99) mg/dl POC Glucose (70-99) Osmolality (280-300) mOsm/kg Lactate 2.3 H* (0.4-2.0) mmol/L Calcium (8.5-10.1) mg/dl Total Bilirubin (0.1-1) mg/dl Direct Bilirubin (0-0.2) mg/dl AST (15-37) U/L ALT (12-78) U/L Alkaline Phosphatase (45-117) U/L Troponin I (0-0.045) ng/ml Total Protein (6.4-8.2) gm/dl Albumin (3.4-5.0) gm/dl Procalcitonin (0-0.5) ng/ml Random Cortisol 36.28 mcg/dl Nasal Screen MRSA (PCR) (Negative) Influenza Type A (PCR) (Neg) Influenza Type B (PCR) (Neg) Medications Administered Current Inpatient Medications Acetaminophen (Tylenol) 650 mg PO BID PRN PRN Reason: Pain Stop: 08/23/18 01:26 Albuterol (Ventolin Hfa) 4 puffs INH QIDR [facility] Stop: 08/24/18 11:59 Last Admin: 07/25/18 12:13 Dose: 4 puffs Amiodarone HCl (Cordarone) 200 mg PO DAILY [facility] Stop: 08/23/18 08:59 Last Admin: 07/25/18 07:35 Dose: 200 mg Artificial Tears (Artificial Tears) 1 drops OP Q6H PRN PRN Reason: DRY EYES Stop: 08/23/18 01:26 Bisacodyl (Dulcolax) 10 mg [place] DAILY PRN PRN Reason: Constipation Stop: 08/23/18 01:26 Calcitriol (Racaltrol) 0.25 mcg PO DAILY [facility] Stop: 08/23/18 08:59 Last Admin: 07/25/18 07:35 Dose: Not Given Citalopram Hydrobromide (Celexa) 30 mg PO DAILY [facility] Stop: 08/23/18 08:59 Last Admin: 07/25/18 07:34 Dose: 30 mg Diclofenac Sodium (Voltaren 1% Top) 1 appln EXT QID [facility] Stop: 08/23/18 08:59 Last Admin: 07/25/18 12:00 Dose: 1 appln Docusate Sodium (Colace) 100 mg PO BID PRN PRN Reason: Constipation Stop: 08/23/18 01:26 Gabapentin (Neurontin) 300 mg PO QPM [facility] Stop: 08/23/18 20:59 Last Admin: 07/24/18 22:29 Dose: 300 mg Guaifenesin (Mucinex) 1,200 mg PO Q12H PRN PRN Reason: Congestion Stop: 08/23/18 01:26 Caspofungin 50 mg/ Sodium (Chloride) 260 mls @ 250 mls/hr IV DAILY@1800 [facility] Stop: 08/03/18 17:59 Thiamine HCl 100 mg/ Syringe 10 mls @ 2 mls/min IV QAM [facility] Stop: 08/23/18 17:44 Last Admin: 07/25/18 09:22 Dose: 2 mls/min Piperacillin Sod/Tazobactam (Sod 3.375 gm/ Dextrose) 115 mls @ 28.75 mls/hr IV Q12H [facility]; Protocol Stop: 08/04/18 04:59 Last Infusion: 07/25/18 08:48 Dose: Infused Sodium Chloride (1/2 Nss) 1,000 mls @ 150 mls/hr IV .Q6H40M [facility] Stop: 08/24/18 09:29 Last Admin: 07/25/18 09:46 Dose: 150 mls/hr Norepinephrine Bitartrate 8 mg (/ Dextrose) 508 mls @ 12.53 mls/hr IV .Q24H [facility] ; Protocol Stop: 08/24/18 11:05 Ipratropium [place] (Atrovent Hfa) 4 puffs INH QIDR [facility] Stop: 08/24/18 11:59 Last Admin: 07/25/18 12:13 Dose: 4 puffs Levothyroxine Sodium (Synthroid) 100 mcg PO DAILYBB [facility] Stop: 08/23/18 06:29 Last Admin: 07/25/18 06:13 Dose: 100 mcg Lorazepam (Ativan) 0.5 mg PO Q6H PRN PRN Reason: anxiety/sob Stop: 08/23/18 01:26 Miconazole Nitrate (Desenex) 1 appln EXT DAILY PRN; Protocol PRN Reason: TO SKIN FOLDS Stop: 08/23/18 15:44 Midodrine (Proamatine) 2.5 mg PO TIDM FERDINAND Stop: 08/23/18 07:59 Last Admin: 07/25/18 11:59 Dose: 2.5 mg Miscellaneous (Order Awaiting Action) 1 ea N/A QS FERDINAND Stop: 08/23/18 07:59 Last Admin: 07/25/18 07:27 Dose: Not Given Miscellaneous (Icu Protocol For Hyperglycemia) 1 ea N/A PRN PRN; Protocol PRN Reason: Hyperglycemia Protocol Stop: 07/27/18 14:09 Miscellaneous Information (Consult) 1 ea N/A UD PRN PRN Reason: Consult Stop: 08/24/18 02:56 Miscellaneous Information (Consult) 1 ea N/A UD PRN PRN Reason: Consult Stop: 08/24/18 03:04 Nutritional Formula (Peptamen Intense Vhp) 1,000 ml [place] .run at 10ml/hr FERDINAND; Protocol Stop: 08/23/18 18:59 Last Admin: 07/24/18 21:10 Dose: 1,000 ml Nystatin (Mycostatin) 5 ml PO QID FERDINAND Stop: 08/23/18 08:59 Last Admin: 07/25/18 11:59 Dose: 5 ml Pantoprazole Sodium (Protonix) 40 mg PO DAILY FERDINAND Stop: 08/23/18 08:59 Last Admin: 07/25/18 07:35 Dose: 40 mg Polyethylene Glycol (Miralax Powder Packet) 1 gm PO DAILY PRN PRN Reason: constipation Stop: 08/23/18 01:26 Ropinirole HCl (Requip) 0.5 mg PO HS FERDINAND Stop: 08/23/18 20:59 Last Admin: 07/24/18 22:31 Dose: 0.5 mg Sennosides (Senokot) 8.6 mg PO BID PRN PRN Reason: Constipation Stop: 08/23/18 01:26 Sucralfate (Carafate) 1 gm PO QID [facility] Stop: 08/23/18 08:59 Last Admin: 07/25/18 11:59 Dose: 1 gm _ (1) Atrial fibrillation Atrial fibrillation type: chronic Qualified Code(s): I48.2 - Chronic atrial fibrillation (2) Depression Active/Remission status: currently active Depression Type: major depressive disorder Major depression episode severity: moderate Major depression recurrence: unspecified whether recurrent Psychotic features: Trimester: Qualified Code(s): F32.1 - Major depressive disorder, single episode, moderate (3) Hypothyroidism Hypothyroidism type: acquired Qualified Code(s): E03.9 - Hypothyroidism, unspecified (4) GERD (gastroesophageal reflux disease) Esophagitis presence: without esophagitis Qualified Code(s): K21.9 - Gastro- esophageal reflux disease without esophagitis
[2018-07-25 15:42] LABS: BUN Creatinine Ratio 13.8 (10-20); Calcium 6.6 mg/dl (8.5-10.1); Creatinine Clr Calc Pharmacy 11.3 ml/min; Est GFR (African American) 13.6; Est GFR (Non-African American) 11.8; Potassium 3.2 mmol/L (3.5-5.1)
--- NOTE | 2018-07-25 15:52 | Surgery Consultation ---
Date of Consultation July 25, 2018 Assessment & Plan (1) Severe protein-calorie malnutrition: Seen with Dr. Canales. [place] unlikely to be acute cholecystitis but also is poor surgical candidate. If HIDA tomorrow suggests cholecystitis, would consider evaluation for percutaneous cholecystotomy tube. Palliative care is also involved. (2) Chronic diastolic CHF (congestive heart failure): (3) Chronic kidney disease, stage III (moderate): (4) Steroid-dependent COPD: (5) Tracheostomy in place: Supervising Physician Co-Signing Physician Notes Patient seen and examined, labs and imaging reviewed, agree with above. Ms. Carter is an unfortunate and chronically ill 83-year-old female who has been admitted to the hospital several times over the past year. Most recently she was here for an aspiration pneumonia. She was admitted a few days ago for hemoptysis and acute kidney injury. Yesterday she was transferred to the intensive care unit due to worsening of condition with rising creatinine, and elevated lactate, and increasing respiratory distress. She has steroid dependent COPD and currently has a trach. During her evaluation she had a right upper quadrant ultrasound that showed some small gallstones and sludge within the gallbladder along with upper limits of normal gallbladder wall approximate 3 mm. There is no pericholecystic fluid and no ductal dilatation. Sonographic [place] sign was not able to be elicited. She has an elevated white count, elevated creatinine, but no LFT abnormalities. Her albumin is 1.3. On exam she appears very frail and does not respond to verbal stimulation. Her abdomen is soft, nontender, and mildly distended. Assessment: 83-year-old female but is chronically ill with acute kidney injury and respiratory distress. At this time I do not suspect that her gallbladder is the source of her problem. However a HIDA scan is pending and we will continue to follow until these results are returned. She is a very poor surgical candidate and I am not sure of her long-term outcome. Her family is been in discussion with palliative care and she is currently DNR. If she is shown to have cholecystitis on HIDA scan, her best option may be a percutaneous cholecystostomy tube performed by radiology. Plan: Agree with HIDA scan Surgery will continue to follow If acute cholecystitis is identified, patient would likely benefit from percutaneous cholecystostomy tube Call with questions or concerns I was not able to discuss these findings with the family as they were not available at the bedside. We will try to talk with him after the HIDA scan tomorrow. History of Present Illness Attending Physician: Anderson Nelson History of Present Illness 83 y/o female chronically ill had some bleeding around her trach yesterday and admitted to ICU for hemoptysis, UTI, MANJULA. INR, LFTs were elevated and liver ultrasound shows sludge and gallbladder wall upper limit of normal. Surgery asked to evaluate for cholecystitis. History is not obtainable from the patient. Allergies Allergy/AdvReac Type Severity Reaction Status Date / Time adhesive Allergy Severe TAPE-REDNESS, Verified 03/19/18 10:33 BLISTERS pneumococcal vaccine Allergy Severe SHORTNESS Verified 03/19/18 10:33 OF BREATH phenazopyridine Allergy Intermediate abdominal Verified 03/19/18 10:33 pain/rash erythromycin base Allergy Mild RASH Verified 03/19/18 10:33 metronidazole Allergy Mild skin rash Verified 07/23/18 22:10 salicylates Allergy Unknown pt states Verified 03/19/18 10:33 rash with ASA 325 but not ASA 81mg Sulfa (Sulfonamide Allergy Unknown ON MED LIST Verified 03/19/18 10:33 Antibiotics) tetracycline Allergy Unknown RASH Verified 03/19/18 10:33 morphine AdvReac Intermediate urinary Verified 03/19/18 10:33 retention -oral morphine only diltiazem AdvReac Mild FLUID Verified 03/19/18 10:33 RETENTION metoclopramide AdvReac Mild TREMORS Verified 03/19/18 10:33 bacitracin AdvReac Unknown "MAKES IT Verified 03/19/18 10:33 WORSE"-OK IF NOT OTC MEDICATION Home Medications Home Medications Medication Instructions Recorded Confirmed Type acetaminophen 325 mg capsule 650 mg PO BID PRN cap 05/25/18 07/23/18 History amiodarone 200 mg tablet 200 mg PO DAILY 05/25/18 07/23/18 History bisacodyl 10 mg rectal suppository 10 mg [place] .q24 PRN ea 05/25/18 07/23/18 History calcitriol 0.25 mcg capsule 0.25 mcg PO DAILY cap 05/25/18 07/23/18 History cholecalciferol (vitamin D3) 2,000 2,000 units PO DAILY 05/25/18 07/23/18 History unit capsule citalopram 20 mg tablet 30 mg PO DAILY tab 05/25/18 07/23/18 History dexlansoprazole 60 mg 60 mg PO DAILY 05/25/18 07/23/18 History capsule,biphase delayed release diclofenac 1 % topical gel 2 gm TOPICAL QID 05/25/18 07/23/18 History gabapentin 300 mg capsule 300 mg PO QPM 05/25/18 07/23/18 History ipratropium-albuterol 0.5 mg-3 3 ml INHALATION QID 05/25/18 07/23/18 History mg(2.5 mg base)/3 mL nebulization soln levothyroxine 100 mcg capsule 100 mcg PO DAILY 05/25/18 07/23/18 History linaclotide 290 mcg capsule 290 mcg PO DAILY 05/25/18 07/23/18 History mecobalamin (vitamin B12) 1,000 1,000 mcg SL DAILY 05/25/18 07/23/18 History mcg disintegrating tablet,sublingual melatonin 10 mg capsule 10 mg PO HS cap 05/25/18 07/23/18 History metoprolol succinate ER 25 mg 25 mg PO BID tab 05/25/18 07/23/18 History tablet,extended release 24 hr multivit and minerals-ferrous 15 ml PO DAILY 05/25/18 07/23/18 History gluconate 9 mg iron/15 mL oral liquid peg 400-propylene glycol (PF) 0.4 1 drops OP Q6H PRN 05/25/18 07/23/18 History %-0.3 % eye drops in a dropperette polyethylene glycol 3350 17 1 packet PO Q48H PRN gm 05/25/18 07/23/18 History gram/dose oral powder riboflavin (vitamin B2) 400 mg 400 mg PO DAILY 05/25/18 07/23/18 History tablet ropinirole 0.5 mg tablet 0.5 mg PO HS tab 05/25/18 07/23/18 History sennosides 8.6 mg tablet 8.6 mg PO BID PRN 05/25/18 07/23/18 History tramadol 50 mg tablet 50 mg PO Q6H tab 05/25/18 07/23/18 History guaifenesin [Mucinex] 1,200 mg PO Q12H PRN 07/04/18 07/23/18 History lorazepam 0.5 mg PO Q6H PRN 07/04/18 07/23/18 History midodrine 2.5 mg PO TID 07/04/18 07/23/18 History nystatin 5 ml PO QID 07/04/18 07/23/18 History potassium chloride 10 meq PO DAILY 07/04/18 07/23/18 History sucralfate [Carafate] 10 ml PO QID 07/04/18 07/23/18 History apixaban [Eliquis] 5 mg PO BID 07/23/18 07/23/18 History ferrous sulfate [iron] 325 mg PO DAILY PRN 07/23/18 07/23/18 History spironolactone 25 mg PO BID 07/23/18 07/23/18 History Patient History Medical History Hemoptysis Severe protein-calorie malnutrition (Chronic) Hypothyroidism (Chronic) Chronic diastolic CHF (congestive heart failure) (Chronic) Chronic kidney disease, stage III (moderate) (Chronic) Steroid-dependent COPD (Chronic) Depression (Chronic) Orthostatic hypotension (Chronic) GERD (gastroesophageal reflux disease) (Chronic) Ambulatory dysfunction (Chronic) Atrial fibrillation Tracheostomy in place 03/15/[address] Family History Other Medical history non-contributory Social History marital status: / Current Living Situation: Family Other Information That Helps Us Care for You: No Feels Safe at Home: Yes Smoking Status: Never smoker Hx Alcohol Use: No Hx Substance Use: No Beliefs That Will Affect Care: None Communication Ability: Effective Physical Exam 2 Vital Signs (Past 24 Hours): Last Vital Signs Temp 36.9 C 07/25/18 12:00 Pulse 95 H 07/25/18 14:01 Resp 16 07/25/18 14:33 BP 116/59 L 07/25/18 14:01 Pulse Ox 98 07/25/18 14:01 Constitutional: + frail appearing, + lethargic and + mechanically ventilated Gastrointestinal (Abdomen): Percussion/Palpation: + abdomen tender ( generalized, not localized to RUQ) and abdomen soft
--- NOTE | 2018-07-25 16:21 | Nephrology Consultation ---
Date of Consultation July 25, 2018 Assessment & Plan (1) MANJULA (acute kidney injury): -- Urine sediment reveals granular casts. Clinically suspect MANJULA on the basis of dehydration and sepsis syndrome -- Electrolyte balance is acceptable. No acute indication for DIRECTOR IMAGING at this time -- Poor feltmaker dialysis candidate due to advanced age, deconditioned status and multiple comorbid medical conditions (2) Chronic kidney disease, stage III (moderate): -- Baseline creatinine has been ~ 1.0 (3) Hypernatremia: -- Patient is clinically volume contracted. Calculated free water deficit is 4.5 L. Unable to provide free water via OG tube since patient is NPO due to possible cholecystitis. Patient is diabetic and has had hyperglycemia while in the ICU. Will change IV LR to 0.45NS at 150 cc/hr and monitor serum sodium (4) Sepsis: -- Antibiotic therapy as per ICU team History of Present Illness Reason for Consultation: Evaluation of MANJULA / CKD and hypernatremia Requesting Physician: Dr. Armas Attending Physician: Anderson Nelson History of Present Illness Ms. Chilel is an 83 year old white female who is seen at the request of Dr. Armas for evaluation of MANJULA / CKD and hypernatremia. Patient was seen & examined in the ICU this morning. Medical management was discussed w/ the ICU team and medical staff credentialing coordinator. Medical records were reviewed today and are summarized as follows: Ms. Philip has stage III CKD w/ baseline creatinine 1.0, AODM, autonomic insufficiency on chronic Midodrine therapy, hyperlipidemia, atrial fibrillation, DVT w/ PE, obesity, elevated R hemidiaphragm following Harpreet fundoplication, recurrent aspiration pneumonia, tracheostomy, medullary thyroid carcinoma and general deconditioning. She was admitted to [facility] 07/23/18 due to hemoptysis and bleeding from around her tracheostomy. She was transferred to the ICU 07/24/18 due to lethargy and hypotension. Evaluation has revealed MANJULA w / creatinine 4.0 and hypernatremia w/ serum sodium 160 mmol/L. Urine is positive for yeast and bronchoscopy results are positive for Staph Aureus. Patient is now on Levophed, Caspofungin and Zosyn therapy. Nephrology consultation has been requested to assist in the management of MANJULA / CKD and hypernatremia Allergies Allergy/AdvReac Type Severity Reaction Status Date / Time adhesive Allergy Severe TAPE-REDNESS, Verified 03/19/18 10:33 BLISTERS pneumococcal vaccine Allergy Severe SHORTNESS Verified 03/19/18 10:33 OF BREATH phenazopyridine Allergy Intermediate abdominal Verified 03/19/18 10:33 pain/rash erythromycin base Allergy Mild RASH Verified 03/19/18 10:33 metronidazole Allergy Mild skin rash Verified 07/23/18 22:10 salicylates Allergy Unknown pt states Verified 03/19/18 10:33 rash with ASA 325 but not ASA 81mg Sulfa (Sulfonamide Allergy Unknown ON MED LIST Verified 03/19/18 10:33 Antibiotics) tetracycline Allergy Unknown RASH Verified 03/19/18 10:33 morphine AdvReac Intermediate urinary Verified 03/19/18 10:33 retention -oral morphine only diltiazem AdvReac Mild FLUID Verified 03/19/18 10:33 RETENTION metoclopramide AdvReac Mild TREMORS Verified 03/19/18 10:33 bacitracin AdvReac Unknown "MAKES IT Verified 03/19/18 10:33 WORSE"-OK IF NOT OTC MEDICATION Home Medications Home Medications Medication Instructions Recorded Confirmed Type acetaminophen 325 mg capsule 650 mg PO BID PRN cap 05/25/18 07/23/18 History amiodarone 200 mg tablet 200 mg PO DAILY 05/25/18 07/23/18 History bisacodyl 10 mg rectal suppository 10 mg [place] .q24 PRN ea 05/25/18 07/23/18 History calcitriol 0.25 mcg capsule 0.25 mcg PO DAILY cap 05/25/18 07/23/18 History cholecalciferol (vitamin D3) 2,000 2,000 units PO DAILY 05/25/18 07/23/18 History unit capsule citalopram 20 mg tablet 30 mg PO DAILY tab 05/25/18 07/23/18 History dexlansoprazole 60 mg 60 mg PO DAILY 05/25/18 07/23/18 History capsule,biphase delayed release diclofenac 1 % topical gel 2 gm TOPICAL QID 05/25/18 07/23/18 History gabapentin 300 mg capsule 300 mg PO QPM 05/25/18 07/23/18 History ipratropium-albuterol 0.5 mg-3 3 ml INHALATION QID 05/25/18 07/23/18 History mg(2.5 mg base)/3 mL nebulization soln levothyroxine 100 mcg capsule 100 mcg PO DAILY 05/25/18 07/23/18 History linaclotide 290 mcg capsule 290 mcg PO DAILY 05/25/18 07/23/18 History mecobalamin (vitamin B12) 1,000 1,000 mcg SL DAILY 05/25/18 07/23/18 History mcg disintegrating tablet,sublingual melatonin 10 mg capsule 10 mg PO HS cap 05/25/18 07/23/18 History metoprolol succinate ER 25 mg 25 mg PO BID tab 05/25/18 07/23/18 History tablet,extended release 24 hr multivit and minerals-ferrous 15 ml PO DAILY 05/25/18 07/23/18 History gluconate 9 mg iron/15 mL oral liquid peg 400-propylene glycol (PF) 0.4 1 drops OP Q6H PRN 05/25/18 07/23/18 History %-0.3 % eye drops in a dropperette polyethylene glycol 3350 17 1 packet PO Q48H PRN gm 05/25/18 07/23/18 History gram/dose oral powder riboflavin (vitamin B2) 400 mg 400 mg PO DAILY 05/25/18 07/23/18 History tablet ropinirole 0.5 mg tablet 0.5 mg PO HS tab 05/25/18 07/23/18 History sennosides 8.6 mg tablet 8.6 mg PO BID PRN 05/25/18 07/23/18 History tramadol 50 mg tablet 50 mg PO Q6H tab 05/25/18 07/23/18 History guaifenesin [Mucinex] 1,200 mg PO Q12H PRN 07/04/18 07/23/18 History lorazepam 0.5 mg PO Q6H PRN 07/04/18 07/23/18 History midodrine 2.5 mg PO TID 07/04/18 07/23/18 History nystatin 5 ml PO QID 07/04/18 07/23/18 History potassium chloride 10 meq PO DAILY 07/04/18 07/23/18 History sucralfate [Carafate] 10 ml PO QID 07/04/18 07/23/18 History apixaban [Eliquis] 5 mg PO BID 07/23/18 07/23/18 History ferrous sulfate [iron] 325 mg PO DAILY PRN 07/23/18 07/23/18 History spironolactone 25 mg PO BID 07/23/18 07/23/18 History Patient History Medical History Hemoptysis Severe protein-calorie malnutrition (Chronic) Hypothyroidism (Chronic) Chronic diastolic CHF (congestive heart failure) (Chronic) Chronic kidney disease, stage III (moderate) (Chronic) Steroid-dependent COPD (Chronic) Depression (Chronic) Orthostatic hypotension (Chronic) GERD (gastroesophageal reflux disease) (Chronic) Ambulatory dysfunction (Chronic) Atrial fibrillation Tracheostomy in place 03/15/[address] Family History Other Medical history non-contributory Social History marital status: / Current Living Situation: Family Other Information That Helps Us Care for You: No Feels Safe at Home: Yes Smoking Status: Never smoker Hx Alcohol Use: No Hx Substance Use: No Beliefs That Will Affect Care: None Communication Ability: Effective Review of Systems Patient is lethargic w/ tracheostomy in place. She is unable to provide a ROS Physical Exam 2 Vital Signs (Past 24 Hours): Last Vital Signs Temp 36.8 C 07/25/18 16:00 Pulse 89 07/25/18 16:00 Resp 16 07/25/18 14:33 BP 101/62 07/25/18 16:00 Pulse Ox 96 07/25/18 16:00 Constitutional: + ill appearing and + obese Eyes: PERRL, conjunctivae normal, anicteric sclerae Respiratory: coarse breath sounds due to mechanical ventilator Cardiovascular: Rate/Rhythm: + abnormal rate and + abnormal rhythm Extremities: no edema Gastrointestinal (Abdomen): Inspection/Auscultation: + abdomen distended and + hypoactive bowel sounds Results & Data Laboratory Results Microbiology 07/24/18 Unknown Bronch Wash,Right Lower Lobe Gram Stain - Final 07/24/18 Unknown Bronch Wash,Right Lower Lobe Bronchoalveolar Lavage Culture - Preliminary Staphylococcus aureus 07/23/18 21:14 Urine,Straight Cath Urine Culture - Preliminary Rabia albicans Laboratory Tests 07/23/18 07/25/18 07/25/18 21:14 04:17 04:17 WBC 12.30 H Hgb 11.3 L Hct 36.4 L Plt Count 167 MPV 13.0 H Sodium 159 H* Potassium 3.5 Chloride 123 H Carbon Dioxide 27 BUN 52 H Creatinine 4.02 H D Calcium 7.9 L Urine Color Dark Yellow Urine Appearance Turbid H Urine pH 5.0 Ur Specific [place] 1.025 Urine Protein 1+ H Urine Blood Trace H Urine Nitrite Positive H Urine WBC (Auto) >30 H Urine RBC (Auto) 0-4 Granular Casts 1-5 H Urine Yeast Budding w/ Hyphae H Diagnostic Findings CXR 07/24/18: An AP, portable, upright chest radiograph is compared to study dated 07/23/2018. Correlation is made with chest CT dated 03/24/2018. The examination is severely degraded by portable technique and patient rotation. A tracheostomy is unchanged in position. An enteric tube has been placed. This extends below the diaphragm. A left internal jugular central venous catheter has been placed. The tip projects over the SVC. The heart is top normal for projection and there is atherosclerotic calcification of the thoracic aorta. There is elevation of the right hemidiaphragm with right basilar consolidation and a small right pleural effusion. The left lung appears clear. No pneumothorax is seen. The skeletal structures are osteopenic. Bilateral shoulder arthroplasties are in place. Extensive cervical and thoracolumbar spinal fusion hardware is noted. There are healed left-sided rib fractures. Surgical clips are noted in the upper abdomen.
[2018-07-25] MEDS: HEPARIN STANDARD DEXTROSE 25,000 UNITS/500 ML IV SCH (17:52)
[2018-07-25] MEDS: CASPOFUNGIN 50 MG in SODIUM CHLORIDE 0.9% 250 ML IV SCH (17:52)
[2018-07-25] MEDS: GABAPENTIN 300 MG CAP PO SCH (20:38)
[2018-07-26 02:55] LABS: BUN Creatinine Ratio 14.4 (10-20); Calcium 6.4 mg/dl (8.5-10.1); Creatinine Clr Calc Pharmacy 12.5 ml/min; Est GFR (African American) 15.3; Est GFR (Non-African American) 13.2; Potassium 2.8 mmol/L (3.5-5.1)
[2018-07-26 02:57] LABS: Partial Thromboplastin Ratio 2.6
[2018-07-26 02:58] LABS: Partial Thromboplastin Time 67.6 Seconds (21.0-31.0)
[2018-07-26 03:06] LABS: Hematocrit (blood only) 28.7 % (37-47); Hemoglobin 8.8 g/dL (12.0-16.0); Mean Corpuscular Hgb Conc 30.7 g/dL (32-36); Mean Corpuscular Volume 98.6 fL (80-100); Mean Platelet Volume 13.1 fL (7.4-10.4); Nucleated RBC # (auto) 0.08 K/uL (0-0); Platelet Count 129 K/uL (130-400); RDW Coefficient of Variation 17.7 % (11.5-14.5); RDW Standard Deviation 64.5 fL (36.4-46.3); Red Blood Count 2.91 M/uL (4.2-5.4); White Blood Count 8.15 K/uL (4.8-10.8)
[2018-07-26] MEDS ORDERED: cefTAZidime 500 MG in DEXTROSE 5% 50 ML IV SCH (04:00)
[2018-07-26] MEDS: POTASSIUM CHLORIDE / WTR 20 MEQ/100 ML PLCT IV SCH ×3 (04:03→06:09)
[2018-07-26] MEDS: SODIUM CHLORIDE 0.45 % 1,000 ML IV SCH ×3 (04:57→18:17)
[2018-07-26] MEDS: PIPERACILLIN/TAZOBACTAM 3.375 GM in DEXTROSE 5% 100 ML IV SCH ×2 (04:57→16:51)
[2018-07-26] MEDS: LEVOTHYROXINE SODIUM 100 MCG TABLET PO SCH (06:25)
[2018-07-26] MEDS ORDERED: VANCOMYCIN HCL 1,000 MG in SODIUM CHLORIDE 0.9% 250 ML IV ONE (07:00)
[2018-07-26 08:06] LABS: Hematocrit (blood only) 29.6 % (37-47)
[2018-07-26 08:29] LABS: BUN Creatinine Ratio 14.8 (10-20); Calcium 6.5 mg/dl (8.5-10.1); Creatinine Clr Calc Pharmacy 14.4 ml/min; Est GFR (African American) 17.3; Est GFR (Non-African American) 14.9
[2018-07-26] MEDS: Heparin IV Standard *NO* Bolus SCH ×4 (09:16→11:48)
--- NOTE | 2018-07-26 10:01 | Nephrology Progress Note ---
Date of Service July 26, 2018 Assessment & Plan (1) MANJULA (acute kidney injury): -- Urine sediment revealed granular casts. Clinically suspect MANJULA on the basis of dehydration and sepsis syndrome -- Electrolyte balance is acceptable. No acute indication for LOCKSTITCH POCKET SETTER at this time -- Poor lab manager dialysis candidate due to advanced age, deconditioned status and multiple comorbid medical conditions (2) Chronic kidney disease, stage III (moderate): -- Baseline creatinine has been ~ 1.0 (3) Hypernatremia: -- Patient remains clinically volume contracted. Calculated free water deficit is 4.5 L. Unable to provide free water via OG tube since patient is NPO due to possible cholecystitis. Patient is diabetic and has had hyperglycemia while in the ICU. Will continue 0.45NS at 150 cc/hr and monitor serum sodium. Rate of correction appears to be acceptable (4) Sepsis: -- Antibiotic therapy as per ICU team Subjective Ms. Philip was seen and examined in the ICU this morning. Her medical management was discussed w/ the ICU team. Patient has just returned from HIDA scan. Results are pending. Her daughter Grisel was present at bedside. Ms. Philip remains on 0.45 NS infusion. Physical Exam 2 Vital Signs (Past 24 Hours): Last Vital Signs Temp 36.8 C 07/26/18 04:00 Pulse 79 07/26/18 06:00 Resp 23 07/26/18 06:00 BP 95/60 L 07/26/18 06:00 Pulse Ox 98 07/26/18 06:00 Constitutional: + ill appearing and + obese Eyes: PERRL, conjunctivae normal, anicteric sclerae Cardiovascular: Rate/Rhythm: + abnormal rate and + abnormal rhythm Extremities: no edema Gastrointestinal (Abdomen): Inspection/Auscultation: + abdomen distended and + hypoactive bowel sounds Results & Data Laboratory Results Laboratory Tests 07/25/18 07/26/18 07/26/18 08:37 02:34 07:49 WBC 8.15 Hgb 8.8 L Hct 28.7 L Plt Count 129 L Sodium 147 H Potassium 4.0 D Chloride 114 H Carbon Dioxide 21 BUN 42 H Creatinine 2.84 H D Glucose 79 Calcium 6.5 L Albumin 1.7 L
[2018-07-26 10:35] LABS: Partial Thromboplastin Ratio 3.5
[2018-07-26 10:40] LABS: Partial Thromboplastin Time 91.3 Seconds (21.0-31.0)
--- NOTE | 2018-07-26 10:52 | Critical Care Progress Note ---
Date of Service July 26, 2018 Assessment & Plan (1) Depression: 83-year-old female admitted on 23 July 2018 and transferred to the ICU on due to altered mental status in the setting of metabolic encephalopathy, severe dehydration, and sepsis. 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 Metabolic encephalopathy is improving over the past 24 hours. History of depression. At home is on Celexa, gabapentin, and Requip. Here is on Requip but gabapentin is being held. Decreased Celexa to 20 mg due to prolonged QTc. Pulm: Acute on chronic respiratory failure, tracheostomy dependent. 06Jul fiberoptic bronchoscopy noted tracheitis and suggested candidiasis (see full report). Currently tolerating trach collar. She remains on scheduled albuterol and Atrovent. CVS: PMH hypertension, continue home midodrine. Some borderline hypotension recently (sepsis-related), not requiring vasopressors. PMH afib, continue home amiodarone, in NSR on monitor presently. PMH chronic diastolic congestive heart failure. Initial profound dehydration, receiving IVF rehydration. Prolonged QTc 503. ID: [id number] bronchial washings grew MDR Staph aureus with pending AFB smears and fungal cultures. 05Nov UCx grew Rabia. Presently on caspofungin (started 07Jul, planned 7 day course), Vancomycin (per pharmacy dosing), and Zosyn. [No Diflucan due to QTc prolongation concerns.] Flu negative but nasal MRSA positive. 05Nov BCx NGTD. 06Jul blood fungal culture pending. - If HIDA scan is normal, will stop Zosyn. Endo: PMH hypothyroidism and thyroid cancer, on home Synthroid. Monitoring blood sugars, no known diabetes. Renal/Lytes: - Acute kidney injury in the setting of CKD stage III. See renal notes mentioning likely due to dehydration and sepsis. 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 - Hypernatremia, as high as Na 160, trending downwards. On half-normal saline at 150 mL an hour. NPO due to GI eval, so no free water given yet. GI: Elevated AP with a thickened gallbladder wall on u/s makes acute cholecystitis possible. However, patient also may just be third spacing. See general surgery notes, went for HIDA this morning. On protonix. Also has severe protein calorie malnutrition (very low albumin). Heme: During early admit tracheitis caused some hemoptysis. Hemoglobin trending downwards to 9.0. - Serial checks of H&H. Also checking reticulocyte count. DVT prophy: SCDs. Back on heparin due to history of DVT. Skin: Please see wound pictures. Her decubitus ulcers are likely chronic and partially reflective of her poor nutrition status. Significant concerns that they would not heal if even surgically debrided / treated. Lines: 24 July right IJ CVL. Mahoney catheter, indwelling trach. PIV x2. Code status: Please see palliative care's note regarding the family meeting that occurred today around noon. Patient is presently DNR in the event of cardiac arrest. PT/OT: Held for now. Disposition: Critically ill. Prior resident of [facility], but had been at home for about 3 weeks prior to admission. Case management on board, helping with overall eventual discharge options. (2) Hypotension: (3) History of hypertension: (4) Atrial fibrillation: (5) Chronic diastolic CHF (congestive heart failure): (6) Candidal urinary tract infection: (7) Pneumonia due to Staphylococcus species involving left lung: (8) MRSA nasal colonization: (9) Hypothyroidism: (10) MANJULA (acute kidney injury): (11) Chronic kidney disease, stage III (moderate): (12) Dehydration: (13) Hypernatremia: (14) Tracheostomy in place: (15) Tracheitis: (16) Elevated alkaline phosphatase level: (17) Decubitus ulcer: (18) Sepsis: (19) Severe protein-calorie malnutrition: (20) GERD (gastroesophageal reflux disease): (21) Prolonged QT interval: (22) Anemia: Supervising Physician Co-Signing Physician Notes Dr. Jeronimo was resident physician during care of patient. I separately evaluated patient for alexander portions of the history and the exam. I was present during the critical portion of medical decision making, and I discussed the case with the resident. I generally agree with the findings and plan. Patient was discussed on multidisciplinary rounds. Patient mildly improving. Remains off ventilator underwent a HIDA scan which the results were noted. I discussed these results with Dr. Canales, no indication for urgent/emergent surgery at this time. Patient still remains poor surgical candidate. Discussed treatment options with the patient's daughter Delores who is also in agreement, patient unable to participate in conversations regarding goals of care nor treatment modalities. At this time I will discontinue Zosyn continue vancomycin for MRSA growth in the sputum and continue a 7-day course of caspofungin for candidiasis in the urine as well as presumptive candidiasis in the upper trachea. Patient has improved and is stable for downgrade out of the ICU. CODE STATUS updated to be DNR in event of cardiac arrest. Subjective Found patient initially resting comfortably earlier this morning. She is a bit more responsive, saying her name and will squeeze her hand on command. Physical Exam 2 Vital Signs (Past 24 Hours): Last Vital Signs Temp 36.5 C 07/26/18 08:00 Pulse 78 07/26/18 08:00 Resp 22 07/26/18 08:00 BP 93/61 L 07/26/18 08:00 Pulse Ox 94 07/26/18 08:00 Physical Exam: General Appearance: Overall ill appearing, deconditioned, does not appear in acute distress. CV: +S1S2 RRR, no murmur. Pulm: Clear to auscultation throughout. Tracheostomy at midline with trach collar in place. Abdomen: +BS, soft, non-distended. Thin habitus. Extremities: Some areas of ecchymosis. Neuro: Following commands. Results & Data Laboratory Results 07/26/18 07/26/18 07/26/18 Range/Units 09:58 09:58 07:49 WBC (4.8-10.8) K/uL RBC (4.2-5.4) M/uL Hgb (12.0-16.0) g/dL Hct (37-47) % MCV (80-100) fL MCH (25-34) pg MCHC (32-36) g/dL RDW Std Deviation (36.4-46.3) fL RDW Coeff of Cem (11.5-14.5) % Plt Count (130-400) K/uL MPV (7.4-10.4) fL Absolute Nucleated RBC (0-0) K/uL Nucleated RBC % (auto) % Platelet Estimate (Normal) APTT 91.3 H* (21.0-31.0) Seconds PTT Ratio 3.5 Sodium 147 H (136-145) mmol/L Potassium 4.0 D (3.5-5.1) mmol/L Chloride 114 H (98-107) mmol/L Carbon Dioxide 21 (21-32) mmol/L Anion Gap 12.0 H (3-11) BUN 42 H (7-18) mg/dl Creatinine 2.84 H D (0.6-1.2) mg/dl Est Cr Clr Drug Dosing 14.4 ml/min Est GFR ( Amer) 17.3 Est GFR (Non-Af Amer) 14.9 BUN/Creatinine Ratio 14.8 (10-20) Glucose 79 (70-99) mg/dl POC Glucose (70-99) Calcium 6.5 L (8.5-10.1) mg/dl Ionized Calcium 0.85 L (1.12-1.32) mmol/L Random Vancomycin mcg/ml 07/26/18 07/26/18 07/26/18 Range/Units 07:49 05:48 02:34 WBC (4.8-10.8) K/uL RBC (4.2-5.4) M/uL Hgb 9.0 L (12.0-16.0) g/dL Hct 29.6 L (37-47) % MCV (80-100) fL MCH (25-34) pg MCHC (32-36) g/dL RDW Std Deviation (36.4-46.3) fL RDW Coeff of Cem (11.5-14.5) % Plt Count (130-400) K/uL MPV (7.4-10.4) fL Absolute Nucleated RBC (0-0) K/uL Nucleated RBC % (auto) % Platelet Estimate (Normal) APTT 67.6 H* (21.0-31.0) Seconds PTT Ratio 2.6 Sodium (136-145) mmol/L Potassium (3.5-5.1) mmol/L Chloride (98-107) mmol/L Carbon Dioxide (21-32) mmol/L Anion Gap (3-11) BUN (7-18) mg/dl Creatinine (0.6-1.2) mg/dl Est Cr Clr Drug Dosing ml/min Est GFR ( Amer) Est GFR (Non-Af Amer) BUN/Creatinine Ratio (10-20) Glucose (70-99) mg/dl POC Glucose 84 (70-99) Calcium (8.5-10.1) mg/dl Ionized Calcium (1.12-1.32) mmol/L Random Vancomycin mcg/ml 07/26/18 07/26/18 07/26/18 Range/Units 02:34 02:34 02:34 WBC 8.15 (4.8-10.8) K/uL RBC 2.91 L (4.2-5.4) M/uL Hgb 8.8 L (12.0-16.0) g/dL Hct 28.7 L (37-47) % MCV 98.6 (80-100) fL MCH 30.2 (25-34) pg MCHC 30.7 L (32-36) g/dL RDW Std Deviation 64.5 H (36.4-46.3) fL RDW Coeff of Cem 17.7 H (11.5-14.5) % Plt Count 129 L (130-400) K/uL MPV 13.1 H (7.4-10.4) fL Absolute Nucleated RBC 0.08 H (0-0) K/uL Nucleated RBC % (auto) 1.0 % Platelet Estimate Decreased (Normal) APTT (21.0-31.0) Seconds PTT Ratio Sodium 149 H (136-145) mmol/L Potassium 2.8 L (3.5-5.1) mmol/L Chloride 114 H (98-107) mmol/L Carbon Dioxide 24 (21-32) mmol/L Anion Gap 11.0 (3-11) BUN 45 H (7-18) mg/dl Creatinine 3.15 H D (0.6-1.2) mg/dl Est Cr Clr Drug Dosing 12.5 ml/min Est GFR ( Amer) 15.3 Est GFR (Non-Af Amer) 13.2 BUN/Creatinine Ratio 14.4 (10-20) Glucose 74 (70-99) mg/dl POC Glucose (70-99) Calcium 6.4 L (8.5-10.1) mg/dl Ionized Calcium (1.12-1.32) mmol/L Random Vancomycin 14.0 mcg/ml 07/26/18 07/25/18 07/25/18 Range/Units 00:03 17:00 14:52 WBC (4.8-10.8) K/uL RBC (4.2-5.4) M/uL Hgb (12.0-16.0) g/dL Hct (37-47) % MCV (80-100) fL MCH (25-34) pg MCHC (32-36) g/dL RDW Std Deviation (36.4-46.3) fL RDW Coeff of Cem (11.5-14.5) % Plt Count (130-400) K/uL MPV (7.4-10.4) fL Absolute Nucleated RBC (0-0) K/uL Nucleated RBC % (auto) % Platelet Estimate (Normal) APTT 155.0 H* (21.0-31.0) Seconds PTT Ratio 6.0 Sodium 151 H D (136-145) mmol/L Potassium 3.2 L (3.5-5.1) mmol/L Chloride 116 H (98-107) mmol/L Carbon Dioxide 24 (21-32) mmol/L Anion Gap 11.0 (3-11) BUN 48 H (7-18) mg/dl Creatinine 3.46 H D (0.6-1.2) mg/dl Est Cr Clr Drug Dosing 11.3 ml/min Est GFR ( Amer) 13.6 Est GFR (Non-Af Amer) 11.8 BUN/Creatinine Ratio 13.8 (10-20) Glucose 93 (70-99) mg/dl POC Glucose 103 H (70-99) Calcium 6.6 L D (8.5-10.1) mg/dl Ionized Calcium (1.12-1.32) mmol/L Random Vancomycin mcg/ml 07/25/18 Range/Units 11:44 WBC (4.8-10.8) K/uL RBC (4.2-5.4) M/uL Hgb (12.0-16.0) g/dL Hct (37-47) % MCV (80-100) fL MCH (25-34) pg MCHC (32-36) g/dL RDW Std Deviation (36.4-46.3) fL RDW Coeff of Cem (11.5-14.5) % Plt Count (130-400) K/uL MPV (7.4-10.4) fL Absolute Nucleated RBC (0-0) K/uL Nucleated RBC % (auto) % Platelet Estimate (Normal) APTT (21.0-31.0) Seconds PTT Ratio Sodium (136-145) mmol/L Potassium (3.5-5.1) mmol/L Chloride (98-107) mmol/L Carbon Dioxide (21-32) mmol/L Anion Gap (3-11) BUN (7-18) mg/dl Creatinine (0.6-1.2) mg/dl Est Cr Clr Drug Dosing ml/min Est GFR ( Amer) Est GFR (Non-Af Amer) BUN/Creatinine Ratio (10-20) Glucose (70-99) mg/dl POC Glucose 139 H (70-99) Calcium (8.5-10.1) mg/dl Ionized Calcium (1.12-1.32) mmol/L Random Vancomycin mcg/ml Medications Administered Current Inpatient Medications Acetaminophen (Tylenol) 650 mg PO BID PRN PRN Reason: Pain Stop: 08/23/18 01:26 Albuterol (Duoneb) 3 ml NEB Q4R PRN PRN Reason: Wheezing Stop: 08/24/18 19:49 Amiodarone HCl (Cordarone) 200 mg PO DAILY FERDINAND Stop: 08/23/18 08:59 Last Admin: 07/25/18 07:35 Dose: 200 mg Artificial Tears (Artificial Tears) 1 drops OP Q6H PRN PRN Reason: DRY EYES Stop: 08/23/18 01:26 Calcitriol (Racaltrol) 0.25 mcg PO DAILY FERDINAND Stop: 08/23/18 08:59 Last Admin: 07/25/18 07:35 Dose: Not Given Citalopram Hydrobromide (Celexa) 20 mg PO DAILY FERDINAND Stop: 08/26/18 08:59 Diclofenac Sodium (Voltaren 1% Top) 1 appln EXT QID FERDINAND Stop: 08/23/18 08:59 Last Admin: 07/25/18 20:37 Dose: 1 appln Docusate Sodium (Colace) 100 mg PO BID PRN PRN Reason: Constipation Stop: 08/23/18 01:26 Gabapentin (Neurontin) 100 mg PO QPM FERDINAND Stop: 08/25/18 20:59 Guaifenesin (Mucinex) 1,200 mg PO Q12H PRN PRN Reason: Congestion Stop: 08/23/18 01:26 Caspofungin 50 mg/ Sodium (Chloride) 260 mls @ 250 mls/hr IV DAILY@1800 FERDINAND Stop: 08/03/18 17:59 Last Infusion: 11/07/18 19:27 Dose: Infused Thiamine HCl 100 mg/ Syringe 10 mls @ 2 mls/min IV QAM FERDINAND Stop: 08/23/18 17:44 Last Admin: 07/25/18 09:22 Dose: 2 mls/min Piperacillin Sod/Tazobactam (Sod 3.375 gm/ Dextrose) 115 mls @ 28.75 mls/hr IV Q12H FERDINAND; Protocol Stop: 08/04/18 04:59 Last Infusion: 07/26/18 09:15 Dose: Infused Sodium Chloride (1/2 Nss) 1,000 mls @ 150 mls/hr IV .Q6H40M FERDINAND Stop: 08/24/18 09:29 Last Admin: 07/26/18 04:57 Dose: 150 mls/hr Heparin Sodium/Dextrose (Heparin Sodium/Dextrose) 25,000 units in 500 mls @ 17 mls/hr IV .Q24H FERDINAND; Protocol Stop: 08/24/18 17:25 Last Titration: 07/26/18 03:11 Dose: 850 units/hr, 17 mls/hr Levothyroxine Sodium (Synthroid) 100 mcg PO DAILYBB FERDINAND Stop: 08/23/18 06:29 Last Admin: 07/26/18 06:25 Dose: Not Given Lorazepam (Ativan) 0.5 mg PO Q6H PRN PRN Reason: anxiety/sob Stop: 08/23/18 01:26 Miconazole Nitrate (Desenex) 1 appln EXT DAILY PRN; Protocol PRN Reason: TO SKIN FOLDS Stop: 08/23/18 15:44 Midodrine (Proamatine) 2.5 mg PO TIDM FERDINAND Stop: 08/23/18 07:59 Last Admin: 07/25/18 16:15 Dose: 2.5 mg Miscellaneous (Icu Protocol For Hyperglycemia) 1 ea N/A PRN PRN; Protocol PRN Reason: Hyperglycemia Protocol Stop: 07/27/18 14:09 Miscellaneous Information (Consult) 1 ea N/A UD PRN PRN Reason: Consult Stop: 08/24/18 02:56 Miscellaneous Information (Consult) 1 ea N/A UD PRN PRN Reason: Consult Stop: 08/24/18 03:04 Nutritional Formula (Peptamen Intense Vhp) 1,000 ml NJ .run at 10ml/hr FERDINAND; Protocol Stop: 08/23/18 18:59 Last Admin: 07/24/18 21:10 Dose: 1,000 ml Nystatin (Mycostatin) 5 ml PO QID [facility] Stop: 08/23/18 08:59 Last Admin: 07/25/18 20:39 Dose: 5 ml Polyethylene Glycol (Miralax Powder Packet) 1 gm PO DAILY PRN PRN Reason: constipation Stop: 08/23/18 01:26 Ropinirole HCl (Requip) 0.5 mg PO HS [facility] Stop: 08/23/18 20:59 Last Admin: 07/24/18 22:31 Dose: 0.5 mg Sennosides (Senokot) 8.6 mg PO BID PRN PRN Reason: Constipation Stop: 08/23/18 01:26 Sucralfate (Carafate) 1 gm PO QID [facility] Stop: 08/23/18 08:59 Last Admin: 07/25/18 20:38 Dose: 1 gm _ (1) Atrial fibrillation Atrial fibrillation type: chronic Qualified Code(s): I48.2 - Chronic atrial fibrillation (2) Depression Active/Remission status: currently active Depression Type: major depressive disorder Major depression episode severity: moderate Major depression recurrence: unspecified whether recurrent Psychotic features: Trimester: Qualified Code(s): F32.1 - Major depressive disorder, single episode, moderate (3) Hypothyroidism Hypothyroidism type: acquired Qualified Code(s): E03.9 - Hypothyroidism, unspecified (4) GERD (gastroesophageal reflux disease) Esophagitis presence: without esophagitis Qualified Code(s): K21.9 - Gastro- esophageal reflux disease without esophagitis
[2018-07-26] MEDS: CALCITRIOL 0.25 MCG CAPSULE PO SCH (11:18)
[2018-07-26] MEDS: THIAMINE HCL 100 MG in SYRINGE 9 ML IV SCH (11:18)
[2018-07-26] MEDS: MIDODRINE HCL 2.5 MG TAB PO SCH ×3 (11:18→16:50)
[2018-07-26] MEDS: AMIODARONE 200 MG TAB PO SCH (11:18)
[2018-07-26] MEDS: NYSTATIN SUSP 500,000 U/5 ML UDC PO SCH ×4 (11:19→20:51)
[2018-07-26] MEDS: DICLOFENAC SOD 1% GEL 100 GM TUBE EXT SCH ×4 (11:19→20:51)
[2018-07-26] MEDS: SUCRALFATE 1 GM/10 ML UDC PO SCH ×4 (11:19→20:51)
[2018-07-26] MEDS: PANTOprazole 40 MG TAB PO SCH (11:21)
[2018-07-26] MEDS: CITALOPRAM 20 MG TAB PO SCH (11:21)
--- NOTE | 2018-07-26 11:48 | Pharmacy Report ---
Pharmacy Abx Dose Short Note - Date of Service July 26, 2018 - Assessment & Plan Assessment * 83 year old F admitted for hemoptysis, sepsis from possible urinary vs pulmonary vs GI source, severe dehydration, hypernatremia, MANJULA, and metabolic encephalopathy * Empiric abx therapy initiated: VANCOMYCIN + ZOSYN + CASPOFUNGIN - dosing per pharmacy * Urine Cx: devan albicans * CXR read at R basilar consolidation + pleural effusion * GB ultrasound equivocal for cholecystitis (distended and sludge/stones present ); HIDA scan to be done * BAL cx's growing MRSA, fungal smear also showed yeast * MANJULA improving, SCr decreasing (4.02 -->3.15) and U.O. increasing. IV fluid provision continues to correct free water deficit Plan Vancomycin * Random vancomycin level this AM = 14 * Will repeat vancomycin today, 1000mg (~14mg/kg) IV x 1 * I doubt renal fxn has improved enough to necessitate a dosing interval of less than 24 hrs, will check random level w/ AM labs tomorrow * Plan to redose when level 15-20mcg/mL, ideally would like to keep trough closer to 20 given PADMINI of 2 Zosyn * eCrCl < 20, BMI < 35, continue 3.375gm ext-infusion Q 12 hrs * there was discussion on rounds that Zosyn may not be needed if HIDA scan negative Caspofungin * continue 50mg IV Q 24 hrs for current renal/hepatic fxn * c albicans in urine may not be adequately covered w/ caspofungin given less than ideal urinary penetration. Studies of echinocandin use for fungal cystitis have produced mixed results. QTc is > 500 making tx with Fluconazole less than ideal Pharmacy will continue to follow and will adjust dose/frequency as necessary. Thank you.
--- NOTE | 2018-07-26 12:00 | Nuclear Medicine Report ---
NUCLEAR MEDICINE HEPATOBILIARY SCAN WITH EJECTION FRACTION HISTORY: Abnormal gallbladder. ? Cholecystitis on u/s COMPARISON: Abdominal ultrasound 07/24/2018. TECHNIQUE: Immediately following the intravenous administration of 5.5 mCi Tc-99m Choletec, dynamic a nterior abdominal imaging pre/post oral administration of Boost was performed. FINDINGS: Uniform hepatic tracer accumulation is shown. Prompt intrahepatic biliary excretion is seen. The gall bladder, common bile duct, and small bowel are all visualized by 55 minutes. This appearance represen ts the normal sequence of biliary excretion. The gall bladder ejection fraction following administration of Kinevac was 5% (normal >35%). IMPRESSION: 1. No evidence for cystic duct obstruction. 2. Abnormal gallbladder ejection fraction calculated to be 5 %. This could represent chronic cholecys titis or delayed gallbladder filling. Electronically signed by: Jeff Maldonado M.D. 07/26/2018 11:18 AM
[2018-07-26] MEDS: PEPTAMEN INTENSE VHP 1.0 CAL 1,000 ML BAG NJ SCH (14:43)
--- NOTE | 2018-07-26 15:04 | Surgery Progress Note ---
Date of Service July 26, 2018 Assessment & Plan (1) Sepsis: 83-year-old female with sepsis likely secondary to aspiration pneumonia, bronchial lavage growing out multidrug resistant staph. HIDA scan with no evidence of acute cholecystitis or biliary obstruction. Findings may represent biliary dyskinesia or chronic cholecystitis, however due to her significant illness, test results are likely unreliable. No indication for surgical intervention at this time. Findings were discussed with Dr. Armas. Surgery will sign off, call with questions or concerns. Present on Admission?: Yes Subjective 83-year-old female admitted with failure to thrive, respiratory distress, acute kidney injury, and sepsis. Surgery consulted for possible cholecystitis. Overall improved this morning, HIDA scan with no evidence of acute cholecystitis or biliary obstruction. Physical Exam 2 Vital Signs (Past 24 Hours): Last Vital Signs Temp 36.5 C 07/26/18 12:00 Pulse 87 07/26/18 14:00 Resp 26 H 07/26/18 14:00 BP 103/44 L 07/26/18 14:00 Pulse Ox 100 07/26/18 14:00 Gastrointestinal (Abdomen): normal bowel sounds, soft, nontender, no hepatosplenomegaly Results & Data Laboratory Results Laboratory Results - last 24 hr 07/25/18 07/25/18 07/26/18 14:52 17:00 00:03 WBC RBC Hgb Hct MCV MCH MCHC RDW Std Deviation RDW Coeff of Cem Plt Count MPV Absolute Nucleated RBC Nucleated RBC % (auto) Platelet Estimate APTT 155.0 H* PTT Ratio 6.0 Sodium 151 H D Potassium 3.2 L Chloride 116 H Carbon Dioxide 24 Anion Gap 11.0 BUN 48 H Creatinine 3.46 H D Est Cr Clr Drug Dosing 11.3 Est GFR ( Amer) 13.6 Est GFR (Non-Af Amer) 11.8 BUN/Creatinine Ratio 13.8 Glucose 93 POC Glucose 103 H Calcium 6.6 L D Ionized Calcium Random Vancomycin 07/26/18 07/26/18 07/26/18 02:34 02:34 02:34 WBC 8.15 RBC 2.91 L Hgb 8.8 L Hct 28.7 L MCV 98.6 MCH 30.2 MCHC 30.7 L RDW Std Deviation 64.5 H RDW Coeff of Cem 17.7 H Plt Count 129 L MPV 13.1 H Absolute Nucleated RBC 0.08 H Nucleated RBC % (auto) 1.0 Platelet Estimate Decreased APTT PTT Ratio Sodium 149 H Potassium 2.8 L Chloride 114 H Carbon Dioxide 24 Anion Gap 11.0 BUN 45 H Creatinine 3.15 H D Est Cr Clr Drug Dosing 12.5 Est GFR ( Amer) 15.3 Est GFR (Non-Af Amer) 13.2 BUN/Creatinine Ratio 14.4 Glucose 74 POC Glucose Calcium 6.4 L Ionized Calcium Random Vancomycin 14.0 07/26/18 07/26/18 07/26/18 02:34 05:48 07:49 WBC RBC Hgb 9.0 L Hct 29.6 L MCV MCH MCHC RDW Std Deviation RDW Coeff of Cem Plt Count MPV Absolute Nucleated RBC Nucleated RBC % (auto) Platelet Estimate APTT 67.6 H* PTT Ratio 2.6 Sodium Potassium Chloride Carbon Dioxide Anion Gap BUN Creatinine Est Cr Clr Drug Dosing Est GFR ( Amer) Est GFR (Non-Af Amer) BUN/Creatinine Ratio Glucose POC Glucose 84 Calcium Ionized Calcium Random Vancomycin 07/26/18 07/26/18 07/26/18 07:49 09:58 09:58 WBC RBC Hgb Hct MCV MCH MCHC RDW Std Deviation RDW Coeff of Cem Plt Count MPV Absolute Nucleated RBC Nucleated RBC % (auto) Platelet Estimate APTT 91.3 H* PTT Ratio 3.5 Sodium 147 H Potassium 4.0 D Chloride 114 H Carbon Dioxide 21 Anion Gap 12.0 H BUN 42 H Creatinine 2.84 H D Est Cr Clr Drug Dosing 14.4 Est GFR ( Amer) 17.3 Est GFR (Non-Af Amer) 14.9 BUN/Creatinine Ratio 14.8 Glucose 79 POC Glucose Calcium 6.5 L Ionized Calcium 0.85 L Random Vancomycin 07/26/18 11:31 WBC RBC Hgb Hct MCV MCH MCHC RDW Std Deviation RDW Coeff of Cem Plt Count MPV Absolute Nucleated RBC Nucleated RBC % (auto) Platelet Estimate APTT PTT Ratio Sodium Potassium Chloride Carbon Dioxide Anion Gap BUN Creatinine Est Cr Clr Drug Dosing Est GFR ( Amer) Est GFR (Non-Af Amer) BUN/Creatinine Ratio Glucose POC Glucose 77 Calcium Ionized Calcium Random Vancomycin Diagnostic Findings NUCLEAR MEDICINE HEPATOBILIARY SCAN WITH EJECTION FRACTION HISTORY: Abnormal gallbladder. ? Cholecystitis on u/s COMPARISON: Abdominal ultrasound 07/24/2018. TECHNIQUE: Immediately following the intravenous administration of 5.5 mCi Tc- 99m Choletec, dynamic anterior abdominal imaging pre/post oral administration of Boost was performed. FINDINGS: Uniform hepatic tracer accumulation is shown. Prompt intrahepatic biliary excretion is seen. The gallbladder, common bile duct, and small bowel are all visualized by 55 minutes. This appearance represents the normal sequence of biliary excretion. The gall bladder ejection fraction following administration of Kinevac was 5% ( normal >35%). IMPRESSION: 1. No evidence for cystic duct obstruction. 2. Abnormal gallbladder ejection fraction calculated to be 5 %. This could represent chronic cholecystitis or delayed gallbladder filling.
[2018-07-26 15:37] LABS: Hemoglobin 8.7 g/dL (12.0-16.0); Reticulocyte % 1.2 % (0.5-2.0); Reticulocytes # 0.03 10^6/uL (0.02-0.10)
[2018-07-26 16:19] LABS: Calcium 6.3 mg/dl (8.5-10.1); Creatinine Clr Calc Pharmacy 16.5 ml/min; Est GFR (African American) 20.4; Est GFR (Non-African American) 17.6; Phosphorus 1.6 mg/dl (2.5-4.9); Potassium 3.1 mmol/L (3.5-5.1)
[2018-07-26 17:39] LABS: Partial Thromboplastin Ratio 2.6
[2018-07-26 17:50] LABS: Partial Thromboplastin Time 67.3 Seconds (21.0-31.0)
[2018-07-26] MEDS: CASPOFUNGIN 50 MG in SODIUM CHLORIDE 0.9% 250 ML IV SCH (18:23)
[2018-07-26] MEDS: GABAPENTIN 100 MG CAP PO SCH (20:51)
--- NOTE | 2018-07-26 22:09 | Hospitalist Progress Note ---
Date of Service July 25, 2018 Assessment & Plan (1) Hemoptysis: Bloody secretions noted on suction. Slightly increased O2 requirement per daughter. No PNA noted on CXR. Patient HD stable. Hg of 13.8. Possibly secondary to irritation from trach cuff vs mucosal dryness. * Admit with continuous pulse oximetry * Trach collar with humidified O2 * Pulmonary consult - appreciate assistance 07/24 Appreciate pulm input. cont. ceftriaxone. Prognosis appears poor. Especially given her weight loss. Daughter wants patient to remain full code. 07/25 Patient sent to ICU yesterday. Patient is now on ventilator and on pressors. consulted surgery for replacement of trach. awaiting outcome of family meeting. continue antibiotics. (2) Acute and chronic respiratory failure with hypoxia: On mechanical vent. On zosyn as well. Patient also is on vasopressors. will continue to monitor. (3) Candidal urinary tract infection: On caspofungin. (4) MANJULA (acute kidney injury): BUN=40, Cr=2.07. Patient with baseline CKD III. Most likely secondary to prerenal azotemia, poor po intake and dehydration * IVF with LR at 100mL/hr x 2 liters * Monitor BUN, Cr, electrolytes and acid/base status * Avoid nephrotoxic agents * Renal dosing where appropirate * Continue Calcitriol * (5) Hypernatremia: Bq=379. Most likely secondary to dehydration * LR as above * Continue to monitor electrolytes * (6) Atrial fibrillation: Rate controlled at present. No anticoagulation. * Continue Amiodarone * Hold Apixaban * Continue to monitor * (7) Hypothyroidism: Stable. Chronic * Continue Synthroid (8) Chronic diastolic CHF (congestive heart failure): No overt evidence of volume overload * Continue Metoprolol * Continue to monitor * (9) UTI (urinary tract infection): Afebrile. HD stable at present. * Urine culture * Ceftriaxone 1gm IV daily * Continue to monitor * (10) Chronic kidney disease, stage III (moderate): As above (11) Depression: Stable. Chronic * Conitnue Celexa daily (12) Orthostatic hypotension: Continue Midodrine (13) GERD (gastroesophageal reflux disease): Conitnue Sucralfate (14) Hypotension: currently on vasopressors. will monitor. spent 35 minutes in management of patient. Subjective Patient decompensated and was transferred to medical unit for lethargy and hypotension. She is currently on levophed, zosyn and caspofungin. Patient at this time does not provide significant history. Family meeting is scheduled for today. Physical Exam 2 Vital Signs (Past 24 Hours): Last Vital Signs Temp 36.8 C 07/25/18 20:00 Pulse 93 07/25/18 20:00 Resp 20 07/25/18 20:00 BP 108/42 07/25/18 20:00 Pulse Ox 100 07/25/18 20:00 Physical Exam: General: chronically ill in appearance, does not follow commands, does not answer questions. No longer appears obese, on ventilator. Skin: warm, dry, intact, no rashes or lesions HEENT: NC/AT, PERRL, anicteric sclera, conjunctiva without injection, external ear normal to inspection and nontender, nares patent, dentition intact, no oropharyngeal lesions, neck supple, trachea midline, tracheostomy in place, some bleeding at trach site, +small amount of skin breakdown at tracheostomy site, no LAD, no thyromegaly, no JVD Heart: +S1/S2, regular, no m/r/g Lungs: CTA anteriorly, no rales/rhonchi/wheezes Abd: +BS, soft, diffusely tender with deep palpation, no rebound/guarding/ peritoneal signs Ext: warm, 2+ pulses in UE/LE bilaterally, no clubbing/cyanosis or edema Neuro: patient does not follow commands or provide verbal response, withdraws four extremities from painful stimuli _ (1) Atrial fibrillation Atrial fibrillation type: chronic Qualified Code(s): I48.2 - Chronic atrial fibrillation (2) Hypothyroidism Hypothyroidism type: acquired Qualified Code(s): E03.9 - Hypothyroidism, unspecified (3) UTI (urinary tract infection) Urinary tract infection type: acute cystitis Hematuria presence: without hematuria Indwelling urinary catheter type: Encounter type: Qualified Code( s): N30.00 - Acute cystitis without hematuria (4) Depression Depression Type: major depressive disorder Major depression recurrence: unspecified whether recurrent Active/Remission status: currently active Major depression episode severity: moderate Psychotic features: Trimester: Qualified Code(s): F32.1 - Major depressive disorder, single episode, moderate (5) GERD (gastroesophageal reflux disease) Esophagitis presence: without esophagitis Qualified Code(s): K21.9 - Gastro- esophageal reflux disease without esophagitis
--- NOTE | 2018-07-26 22:10 | Hospitalist Progress Note ---
Date of Service July 26, 2018 Assessment & Plan (1) Hemoptysis: GI: Elevated AP with a thickened gallbladder wall on u/s makes acute cholecystitis possible. However, patient also may just be third spacing. See general surgery notes, went for HIDA this morning. On protonix. Also has severe protein calorie malnutrition (very low albumin). No indication for surgical intervention at this time. Findings were discussed with Dr. Armas. Surgery will sign off, call with questions or concerns. Bloody secretions noted on suction. Slightly increased O2 requirement per daughter. No PNA noted on CXR. Patient HD stable. Hg of 13.8. Possibly secondary to irritation from trach cuff vs mucosal dryness. * Admit with continuous pulse oximetry * Trach collar with humidified O2 * Pulmonary consult - appreciate assistance 07/24 Appreciate pulm input. cont. ceftriaxone. Prognosis appears poor. Especially given her weight loss. Daughter wants patient to remain full code. 07/25 Patient sent to ICU yesterday. Patient is now on ventilator and on pressors. consulted surgery for replacement of trach. awaiting outcome of family meeting. continue antibiotics. 07/26 Off pressors. On caspofungin for Urinary infection On vancomycin for MRSA multidrug from bronchial washings. (2) Acute and chronic respiratory failure with hypoxia: On mechanical vent. On zosyn as well. Patient off vasopressors. Taking midodrine. will continue to monitor. (3) Candidal urinary tract infection: On caspofungin. (4) MANJULA (acute kidney injury): On admission: BUN=40, Cr=2.07. Patient with baseline CKD III. Most likely secondary to prerenal azotemia, poor po intake and dehydration * IVF with LR at 100mL/hr x 2 liters * Monitor BUN, Cr, electrolytes and acid/base status * Avoid nephrotoxic agents * Renal dosing where appropirate * Continue Calcitriol 07/26 Appreciate input Clinically suspect MANJULA on the basis of dehydration and sepsis syndrome -- Electrolyte balance is acceptable. No acute indication for SURGERY TEACHER at this time -- Poor intermediate dialysis candidate due to advanced age, deconditioned status and multiple comorbid medical conditions Continue IVF. (5) Hypernatremia: Ym=685. Most likely secondary to dehydration * LR as above * Continue to monitor electrolytes Increased to 160 on the 6th. Now on 145. On normal saline (6) Atrial fibrillation: Rate controlled at present. No anticoagulation. * Continue Amiodarone * Hold Apixaban * Continue to monitor * (7) Hypothyroidism: Stable. Chronic * Continue Synthroid (8) Chronic diastolic CHF (congestive heart failure): No overt evidence of volume overload * Continue Metoprolol * Continue to monitor * (9) UTI (urinary tract infection): Afebrile. HD stable at present. * Initially on ceftriaxone. * Now on caspofungin. (10) Chronic kidney disease, stage III (moderate): As above (11) Depression: Stable. Chronic * Conitnue Celexa daily (12) Orthostatic hypotension: Continue Midodrine (13) GERD (gastroesophageal reflux disease): Conitnue Sucralfate (14) Hypotension: improved. Back on midodrine (15) Sepsis: Likely from aspiration pneumonia. Concern over GI infection intially. HIDA scan negative. Stopped zosyn. Continue vanco mycin as bronch washing show multi drug resistant Staph (16) Severe protein-calorie malnutrition: noted due to weight low and low albumin. will promote oral intake. Spent 35 minutes in management of patient Subjective Patient appears very weak today. But she is more awake and weakly nods when I ask her if she hears me. She also nods that she is feeling better, but does not provide more history. Physical Exam 2 Vital Signs (Past 24 Hours): Last Vital Signs Temp 36.8 C 07/26/18 20:00 Pulse 74 07/26/18 21:00 Resp 20 07/26/18 21:00 BP 124/52 L 07/26/18 21:00 Pulse Ox 100 07/26/18 21:00 Physical Exam: General: chronically ill in appearance, nods to questions. No longer appears obese, on ventilator. Skin: warm, dry, intact, no rashes or lesions HEENT: NC/AT, PERRL, anicteric sclera, conjunctiva without injection, external ear normal to inspection and nontender, nares patent, dentition intact, no oropharyngeal lesions, neck supple, trachea midline, tracheostomy in place, some bleeding at trach site, +small amount of skin breakdown at tracheostomy site, no LAD, no thyromegaly, no JVD Heart: +S1/S2, regular, no m/r/g Lungs: CTA anteriorly, no rales/rhonchi/wheezes Abd: +BS, soft, diffusely tender with deep palpation, no rebound/guarding/ peritoneal signs Ext: warm, 2+ pulses in UE/LE bilaterally, no clubbing/cyanosis or edema Neuro: patient does not follow commands or provide verbal response, withdraws four extremities from painful stimuli _ (1) Atrial fibrillation Atrial fibrillation type: chronic Qualified Code(s): I48.2 - Chronic atrial fibrillation (2) Hypothyroidism Hypothyroidism type: acquired Qualified Code(s): E03.9 - Hypothyroidism, unspecified (3) UTI (urinary tract infection) Urinary tract infection type: acute cystitis Hematuria presence: without hematuria Indwelling urinary catheter type: Encounter type: Qualified Code( s): N30.00 - Acute cystitis without hematuria (4) Depression Depression Type: major depressive disorder Major depression recurrence: unspecified whether recurrent Active/Remission status: currently active Major depression episode severity: moderate Psychotic features: Trimester: Qualified Code(s): F32.1 - Major depressive disorder, single episode, moderate (5) GERD (gastroesophageal reflux disease) Esophagitis presence: without esophagitis Qualified Code(s): K21.9 - Gastro- esophageal reflux disease without esophagitis
[2018-07-27] MEDS: SODIUM CHLORIDE 0.45 % 1,000 ML IV SCH ×2 (02:06→08:20)
[2018-07-27] MEDS: HEPARIN STANDARD DEXTROSE 25,000 UNITS/500 ML IV SCH (02:06)
[2018-07-27 05:17] LABS: Hematocrit (blood only) 29.7 % (37-47); Hemoglobin 9.5 g/dL (12.0-16.0); Mean Corpuscular Volume 94.6 fL (80-100); RDW Coefficient of Variation 17.1 % (11.5-14.5); RDW Standard Deviation 58.3 fL (36.4-46.3); Red Blood Count 3.14 M/uL (4.2-5.4); White Blood Count 6.66 K/uL (4.8-10.8)
[2018-07-27 05:20] LABS: BUN Creatinine Ratio 17.3 (10-20); Creatinine Clr Calc Pharmacy 19.1 ml/min; Est GFR (African American) 24.4; Potassium 2.9 mmol/L (3.5-5.1)
[2018-07-27 05:21] LABS: Mean Platelet Volume 13.2 fL (7.4-10.4); Platelet Count 123 K/uL (130-400)
[2018-07-27 05:27] LABS: Partial Thromboplastin Ratio 2.6
[2018-07-27 05:33] LABS: Partial Thromboplastin Time 67.2 Seconds (21.0-31.0)
[2018-07-27] MEDS: LEVOTHYROXINE SODIUM 100 MCG TABLET PO SCH (06:28)
[2018-07-27] MEDS ORDERED: VANCOMYCIN HCL 1,000 MG in SODIUM CHLORIDE 0.9% 250 ML IV ONE (07:15)
--- NOTE | 2018-07-27 07:47 | Critical Care Progress Note ---
Date of Service July 27, 2018 Assessment & Plan (1) Depression: 83-year-old female admitted on 23 July 2018 and transferred to the ICU on due to altered mental status in the setting of metabolic encephalopathy, severe dehydration, and sepsis. 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 Metabolic encephalopathy continues to improve. History of depression. At home is on Celexa, gabapentin, and Requip. Here is on Requip. Restarted gabapentin. Decreased Celexa to 20 mg due to prolonged QTc. Pulm: Acute on chronic respiratory failure, tracheostomy dependent. fiberoptic bronchoscopy noted tracheitis and suggested candidiasis (see full report). Currently tolerating trach collar. Changed albuterol and Atrovent to prn. CVS: PMH hypertension, continue home midodrine. Improved blood pressures. PMH afib, continue home amiodarone, in afib on monitor presently. PMH chronic diastolic congestive heart failure. Initial profound dehydration, s/p extensive IVF rehydration. Prolonged QTc 503. ID: [id number] bronchial washings grew MDR Staph aureus with pending AFB smears and fungal cultures. 05Jul UCx grew Rabia. Presently on caspofungin (started , planned 7 day course), Vancomycin (per pharmacy dosing, planend 7 day course). [No Diflucan due to QTc prolongation concerns.] Flu negative but nasal MRSA positive. 05Jul BCx NGTD. blood fungal culture pending. - Stopped zosyn due to negative HIDA scan. Endo: PMH hypothyroidism and thyroid cancer, on home Synthroid. Monitoring blood sugars, no known diabetes. Renal/Lytes: - Acute kidney injury in the setting of CKD stage III. See renal notes mentioning likely due to dehydration and sepsis. Poor lobsterman dialysis candidate. - Hypernatremia, as high as Na 160, now normalized. Stopping IVF. Begin free water via NGT. - Hypokalemia: Replacing. - Hypophosphatemia: Replacing. - Hypocalcemia: Begin calcitriol. GI: Elevated LFTs. HIDA scan reassuring (see report). See general surgery notes, no present surgical necessity. On protonix. Also has severe protein calorie malnutrition (very low albumin). Restarted peptamin TF (switch to NGT from OGT), plan to advance to goal. Heme: During early admit tracheitis caused some hemoptysis. Hemoglobin stable around 9. DVT prophy: SCDs. Back on heparin due to history of DVT. Skin: Please see wound pictures. Her decubitus ulcers are likely chronic and partially reflective of her poor nutrition status. Significant concerns that they would not heal if even surgically debrided / treated. Lines: 24 July right IJ CVL. Mahoney catheter, indwelling trach. PIV x2. - Switch from OGT to NGT. - Would benefit from additional endurance catheter. Code status: Please see palliative care's notes, including family meeting. Patient is presently DNR in the event of cardiac arrest. PT/OT: Re-consulted in case of disbo to SNF. Disposition:Stable for transfer out of ICU. Prior resident of [facility], but had been at home for about three weeks prior to admission. Case management on board, helping with overall eventual discharge options. (2) Hypotension: (3) History of hypertension: (4) Atrial fibrillation: (5) Chronic diastolic CHF (congestive heart failure): (6) Candidal urinary tract infection: (7) Pneumonia due to Staphylococcus species involving left lung: (8) MRSA nasal colonization: (9) Hypothyroidism: (10) MANJULA (acute kidney injury): (11) Chronic kidney disease, stage III (moderate): (12) Dehydration: (13) Hypernatremia: (14) Tracheostomy in place: (15) Tracheitis: (16) Elevated alkaline phosphatase level: (17) Decubitus ulcer: (18) Sepsis: (19) Severe protein-calorie malnutrition: (20) GERD (gastroesophageal reflux disease): (21) Prolonged QT interval: (22) Anemia: Supervising Physician Co-Signing Physician Notes Dr. Jeronimo was resident physician during care of patient. I separately evaluated patient for alexander portions of the history and the exam. I was present during the critical portion of medical decision making, and I discussed the case with the resident. I generally agree with the findings and plan. Patient's renal function continues to improve, discontinuing supplemental IV fluids and transitioning to free water via NG tube and increasing tube feed for nutritional support. Replaced electrolytes, added Calcitrol however this is on hold for transfer to floor. 7-day course of caspofungin and vancomycin stop dates will be entered by pharmacy. Subjective Found patient resting in bed, eyes closed. Almost opened on verbal address this morning. Shook head "yes" asking if she was okay and "no" asking if she was in any pain. Squeezed hand on command. Physical Exam 2 Vital Signs (Past 24 Hours): Last Vital Signs Temp 36.9 C 07/27/18 04:00 Pulse 79 07/27/18 06:00 Resp 26 H 07/27/18 06:00 BP 109/64 07/27/18 06:00 Pulse Ox 99 07/27/18 06:00 Physical Exam: General Appearance: Overall ill appearing, deconditioned, a bit more interactive today, does not appear in acute distress. CV: +S1S2 RRR, no murmur. Pulm: Clear to auscultation throughout. Tracheostomy at midline with trach collar in place. Abdomen: +BS, soft, non-distended. Extremities: Some areas of ecchymosis. Neuro: Following commands to squeeze hand. Keeps eyes closed most of the time. Results & Data Laboratory Results 07/27/18 07/27/18 07/27/18 Range/Units 06:10 04:53 04:51 WBC (4.8-10.8) K/uL RBC (4.2-5.4) M/uL Hgb (12.0-16.0) g/dL Hct (37-47) % MCV (80-100) fL MCH (25-34) pg MCHC (32-36) g/dL RDW Std Deviation (36.4-46.3) fL RDW Coeff of Cem (11.5-14.5) % Plt Count (130-400) K/uL MPV (7.4-10.4) fL Reticulocyte % (Auto) (0.5-2.0) % Reticulocyte # (0.02-0.10) 10^6/uL Platelet Estimate (Normal) APTT 67.2 H* (21.0-31.0) Seconds PTT Ratio 2.6 Sodium (136-145) mmol/L Potassium (3.5-5.1) mmol/L Chloride (98-107) mmol/L Carbon Dioxide (21-32) mmol/L Anion Gap (3-11) BUN (7-18) mg/dl Creatinine (0.6-1.2) mg/dl Est Cr Clr Drug Dosing ml/min Est GFR ( Amer) Est GFR (Non-Af Amer) BUN/Creatinine Ratio (10-20) Glucose (70-99) mg/dl POC Glucose 97 (70-99) Calcium (8.5-10.1) mg/dl Ionized Calcium (1.12-1.32) mmol/L Phosphorus (2.5-4.9) mg/dl Magnesium (1.8-2.4) mg/dl Random Vancomycin 17.9 mcg/ml 07/27/18 07/27/18 07/27/18 Range/Units 04:51 04:51 00:38 WBC 6.66 (4.8-10.8) K/uL RBC 3.14 L (4.2-5.4) M/uL Hgb 9.5 L (12.0-16.0) g/dL Hct 29.7 L (37-47) % MCV 94.6 (80-100) fL MCH 30.3 (25-34) pg MCHC 32.0 (32-36) g/dL RDW Std Deviation 58.3 H (36.4-46.3) fL RDW Coeff of Cem 17.1 H (11.5-14.5) % Plt Count 123 L (130-400) K/uL MPV 13.2 H (7.4-10.4) fL Reticulocyte % (Auto) (0.5-2.0) % Reticulocyte # (0.02-0.10) 10^6/uL Platelet Estimate Decreased (Normal) APTT (21.0-31.0) Seconds PTT Ratio Sodium 143 (136-145) mmol/L Potassium 2.9 L (3.5-5.1) mmol/L Chloride 112 H (98-107) mmol/L Carbon Dioxide 21 (21-32) mmol/L Anion Gap 10.0 (3-11) BUN 37 H (7-18) mg/dl Creatinine 2.14 H D (0.6-1.2) mg/dl Est Cr Clr Drug Dosing 19.1 ml/min Est GFR ( Amer) 24.4 Est GFR (Non-Af Amer) 21.0 BUN/Creatinine Ratio 17.3 (10-20) Glucose 87 (70-99) mg/dl POC Glucose 96 (70-99) Calcium 6.0 L (8.5-10.1) mg/dl Ionized Calcium (1.12-1.32) mmol/L Phosphorus (2.5-4.9) mg/dl Magnesium (1.8-2.4) mg/dl Random Vancomycin mcg/ml 07/26/18 07/26/18 07/26/18 Range/Units 17:06 17:03 15:18 WBC (4.8-10.8) K/uL RBC (4.2-5.4) M/uL Hgb 8.7 L (12.0-16.0) g/dL Hct 28.0 L (37-47) % MCV (80-100) fL MCH (25-34) pg MCHC (32-36) g/dL RDW Std Deviation (36.4-46.3) fL RDW Coeff of Cem (11.5-14.5) % Plt Count (130-400) K/uL MPV (7.4-10.4) fL Reticulocyte % (Auto) 1.2 (0.5-2.0) % Reticulocyte # 0.03 (0.02-0.10) 10^6/uL Platelet Estimate (Normal) APTT 67.3 H* (21.0-31.0) Seconds PTT Ratio 2.6 Sodium (136-145) mmol/L Potassium (3.5-5.1) mmol/L Chloride (98-107) mmol/L Carbon Dioxide (21-32) mmol/L Anion Gap (3-11) BUN (7-18) mg/dl Creatinine (0.6-1.2) mg/dl Est Cr Clr Drug Dosing ml/min Est GFR ( Amer) Est GFR (Non-Af Amer) BUN/Creatinine Ratio (10-20) Glucose (70-99) mg/dl POC Glucose 95 (70-99) Calcium (8.5-10.1) mg/dl Ionized Calcium (1.12-1.32) mmol/L Phosphorus (2.5-4.9) mg/dl Magnesium (1.8-2.4) mg/dl Random Vancomycin mcg/ml 07/26/18 07/26/18 07/26/18 Range/Units 15:18 11:31 09:58 WBC (4.8-10.8) K/uL RBC (4.2-5.4) M/uL Hgb (12.0-16.0) g/dL Hct (37-47) % MCV (80-100) fL MCH (25-34) pg MCHC (32-36) g/dL RDW Std Deviation (36.4-46.3) fL RDW Coeff of Cem (11.5-14.5) % Plt Count (130-400) K/uL MPV (7.4-10.4) fL Reticulocyte % (Auto) (0.5-2.0) % Reticulocyte # (0.02-0.10) 10^6/uL Platelet Estimate (Normal) APTT (21.0-31.0) Seconds PTT Ratio Sodium 145 (136-145) mmol/L Potassium 3.1 L D (3.5-5.1) mmol/L Chloride 112 H (98-107) mmol/L Carbon Dioxide 21 (21-32) mmol/L Anion Gap 11.0 (3-11) BUN 40 H (7-18) mg/dl Creatinine 2.48 H D (0.6-1.2) mg/dl Est Cr Clr Drug Dosing 16.5 ml/min Est GFR ( Amer) 20.4 Est GFR (Non-Af Amer) 17.6 BUN/Creatinine Ratio 16.0 (10-20) Glucose 95 (70-99) mg/dl POC Glucose 77 (70-99) Calcium 6.3 L (8.5-10.1) mg/dl Ionized Calcium 0.85 L (1.12-1.32) mmol/L Phosphorus 1.6 L (2.5-4.9) mg/dl Magnesium 2.0 (1.8-2.4) mg/dl Random Vancomycin mcg/ml 07/26/18 Range/Units 09:58 WBC (4.8-10.8) K/uL RBC (4.2-5.4) M/uL Hgb (12.0-16.0) g/dL Hct (37-47) % MCV (80-100) fL MCH (25-34) pg MCHC (32-36) g/dL RDW Std Deviation (36.4-46.3) fL RDW Coeff of Cem (11.5-14.5) % Plt Count (130-400) K/uL MPV (7.4-10.4) fL Reticulocyte % (Auto) (0.5-2.0) % Reticulocyte # (0.02-0.10) 10^6/uL Platelet Estimate (Normal) APTT 91.3 H* (21.0-31.0) Seconds PTT Ratio 3.5 Sodium (136-145) mmol/L Potassium (3.5-5.1) mmol/L Chloride (98-107) mmol/L Carbon Dioxide (21-32) mmol/L Anion Gap (3-11) BUN (7-18) mg/dl Creatinine (0.6-1.2) mg/dl Est Cr Clr Drug Dosing ml/min Est GFR ( Amer) Est GFR (Non-Af Amer) BUN/Creatinine Ratio (10-20) Glucose (70-99) mg/dl POC Glucose (70-99) Calcium (8.5-10.1) mg/dl Ionized Calcium (1.12-1.32) mmol/L Phosphorus (2.5-4.9) mg/dl Magnesium (1.8-2.4) mg/dl Random Vancomycin mcg/ml Medications Administered Current Inpatient Medications Acetaminophen (Tylenol) 650 mg PO BID PRN PRN Reason: Pain Stop: 08/23/18 01:26 Albuterol (Duoneb) 3 ml NEB Q4R PRN PRN Reason: Wheezing Stop: 08/24/18 19:49 Amiodarone HCl (Cordarone) 200 mg PO DAILY [facility] Stop: 08/23/18 08:59 Last Admin: 07/27/18 08:16 Dose: 200 mg Artificial Tears (Artificial Tears) 1 drops OP Q6H PRN PRN Reason: DRY EYES Stop: 08/23/18 01:26 Calcitriol (Racaltrol) 0.25 mcg PO DAILY [facility] Stop: 08/23/18 08:59 Last Admin: 07/27/18 08:17 Dose: 0.25 mcg Citalopram Hydrobromide (Celexa) 20 mg PO DAILY [facility] Stop: 08/26/18 08:59 Last Admin: 07/27/18 08:17 Dose: 20 mg Diclofenac Sodium (Voltaren 1% Top) 1 appln EXT QID [facility] Stop: 08/23/18 08:59 Last Admin: 07/27/18 08:18 Dose: 1 appln Docusate Sodium (Colace) 100 mg PO BID PRN PRN Reason: Constipation Stop: 08/23/18 01:26 Gabapentin (Neurontin) 100 mg PO QPM [facility] Stop: 08/25/18 20:59 Last Admin: 07/26/18 20:51 Dose: 100 mg Guaifenesin (Mucinex) 1,200 mg PO Q12H PRN PRN Reason: Congestion Stop: 08/23/18 01:26 Caspofungin 50 mg/ Sodium (Chloride) 260 mls @ 250 mls/hr IV DAILY@1800 [facility] Stop: 07/30/18 19:03 Last Infusion: 07/26/18 19:30 Dose: Infused Thiamine HCl 100 mg/ Syringe 10 mls @ 2 mls/min IV QAM [facility] Stop: 08/23/18 17:44 Last Admin: 07/27/18 08:20 Dose: 2 mls/min Sodium Chloride (1/2 Nss) 1,000 mls @ 150 mls/hr IV .Q6H40M [facility] Stop: 08/24/18 09:29 Last Admin: 07/27/18 08:20 Dose: 150 mls/hr Heparin Sodium/Dextrose (Heparin Sodium/Dextrose) 25,000 units in 500 mls @ 15 mls/hr IV .Q0M [facility]; Protocol Stop: 08/24/18 17:25 Last Titration: 07/27/18 05:51 Dose: 750 units/hr, 15 mls/hr Potassium Chloride (K Travis / Wtr) 20 meq in 100 mls @ 50 mls/hr IV Q2H [facility] Stop: 07/27/18 14:59 Last Admin: 07/27/18 09:11 Dose: 50 mls/hr Potassium Phosphate 18 mmol/ (Sodium Chloride) 506 mls @ 88 mls/hr IV ONE ONE Stop: 07/27/18 17:44 Pantoprazole Sodium 40 mg/ (Syringe) 10 mls @ 5 mls/min IV BID [facility] Stop: 08/26/18 10:59 Levothyroxine Sodium (Synthroid) 100 mcg PO DAILYBB [facility] Stop: 08/23/18 06:29 Last Admin: 07/27/18 06:28 Dose: 100 mcg Lorazepam (Ativan) 0.5 mg PO Q6H PRN PRN Reason: anxiety/sob Stop: 08/23/18 01:26 Miconazole Nitrate (Desenex) 1 appln EXT DAILY PRN; Protocol PRN Reason: TO SKIN FOLDS Stop: 08/23/18 15:44 Midodrine (Proamatine) 2.5 mg PO TIDM [facility] Stop: 08/23/18 07:59 Last Admin: 07/27/18 08:17 Dose: 2.5 mg Miscellaneous (Icu Protocol For Hyperglycemia) 1 ea N/A PRN PRN; Protocol PRN Reason: Hyperglycemia Protocol Stop: 07/27/18 14:09 Miscellaneous Information (Consult) 1 ea N/A UD PRN; Protocol PRN Reason: Consult Stop: 07/31/18 23:59 Nutritional Formula (Peptamen Intense Vhp) 1,000 ml [place] .run at 10ml/hr [facility]; Protocol Stop: 08/23/18 18:59 Last Admin: 07/26/18 14:43 Dose: 1,000 ml Nystatin (Mycostatin) 5 ml PO QID [facility] Stop: 08/23/18 08:59 Last Admin: 07/27/18 08:17 Dose: 5 ml Polyethylene Glycol (Miralax Powder Packet) 1 gm PO DAILY PRN PRN Reason: constipation Stop: 08/23/18 01:26 Potassium Phosphate (Phospha 250 Neutral 155-852-130 Mg) 2 tab PO TODAY@0900 [facility] Stop: 07/27/18 18:00 Last Admin: 07/27/18 09:13 Dose: 2 tab Ropinirole HCl (Requip) 0.5 mg PO HS [facility] Stop: 08/23/18 20:59 Last Admin: 07/24/18 22:31 Dose: 0.5 mg Sennosides (Senokot) 8.6 mg PO BID PRN PRN Reason: Constipation Stop: 08/23/18 01:26 Sucralfate (Carafate) 1 gm PO QID [facility] Stop: 08/23/18 08:59 Last Admin: 07/27/18 08:17 Dose: 1 gm Vitamin D (Vitamin D3) 2,000 units PO DAILY [facility] Stop: 08/26/18 08:59 Last Admin: 07/27/18 09:11 Dose: 2,000 units _ (1) Depression Active/Remission status: currently active Depression Type: major depressive disorder Major depression episode severity: moderate Major depression recurrence: unspecified whether recurrent Psychotic features: Trimester: Qualified Code(s): F32.1 - Major depressive disorder, single episode, moderate (2) Atrial fibrillation Atrial fibrillation type: chronic Qualified Code(s): I48.2 - Chronic atrial fibrillation (3) Hypothyroidism Hypothyroidism type: acquired Qualified Code(s): E03.9 - Hypothyroidism, unspecified (4) GERD (gastroesophageal reflux disease) Esophagitis presence: without esophagitis Qualified Code(s): K21.9 - Gastro- esophageal reflux disease without esophagitis
[2018-07-27] MEDS: AMIODARONE 200 MG TAB PO SCH (08:16)
[2018-07-27] MEDS: CALCITRIOL 0.25 MCG CAPSULE PO SCH (08:17)
[2018-07-27] MEDS: CITALOPRAM 20 MG TAB PO SCH (08:17)
[2018-07-27] MEDS: NYSTATIN SUSP 500,000 U/5 ML UDC PO SCH ×4 (08:17→19:42)
[2018-07-27] MEDS: MIDODRINE HCL 2.5 MG TAB PO SCH ×3 (08:17→17:36)
[2018-07-27] MEDS: SUCRALFATE 1 GM/10 ML UDC PO SCH ×4 (08:17→19:40)
[2018-07-27] MEDS: DICLOFENAC SOD 1% GEL 100 GM TUBE EXT SCH ×4 (08:18→21:00)
[2018-07-27] MEDS: THIAMINE HCL 100 MG in SYRINGE 9 ML IV SCH (08:20)
[2018-07-27] MEDS ORDERED: CALCITRIOL 0.25 MCG CAPSULE PO SCH (09:00)
[2018-07-27] MEDS ORDERED: POT PHOSPHATE MONOBASIC W/ SOD TAB PO SCH (09:00)
[2018-07-27] MEDS: CHOLECALCIFEROL 1,000 UNITS TAB PO SCH (09:11)
[2018-07-27] MEDS: POTASSIUM CHLORIDE / WTR 20 MEQ/100 ML PLCT IV SCH ×3 (09:11→15:13)
--- NOTE | 2018-07-27 09:42 | Nephrology Progress Note ---
Date of Service July 27, 2018 Assessment & Plan (1) MANJULA (acute kidney injury): -- Urine sediment revealed granular casts. Clinically suspect MANJULA on the basis of dehydration and sepsis syndrome -- Electrolyte balance is acceptable. 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 Kidney function is gradually improving -- Poor intermediate dialysis candidate due to advanced age, deconditioned status and multiple comorbid medical conditions (2) Chronic kidney disease, stage III (moderate): -- Baseline creatinine has been ~ 1.0 (3) Hypokalemia: -- Serum potassium supplementation has been ordered by primary service. Will monitor (4) Hypernatremia: -- Serum sodium has corrected. Patient is now on enteral tube feeding. Recommend providing 250 cc free water q 6 hours. Will monitor serum sodium (5) Sepsis: -- Antibiotic therapy as per ICU team Subjective Ms. Philip was seen and examined in the ICU this morning. Her medical management was discussed w/ the ICU team. Ms. Philip awakens to voice but is nonverbal. She appears to be breathing comfortably via tracheostomy. She is now receiving enteral feedings via coresafe tube. Physical Exam 2 Vital Signs (Past 24 Hours): Last Vital Signs Temp 36.9 C 07/27/18 04:00 Pulse 79 07/27/18 06:00 Resp 26 H 07/27/18 06:00 BP 109/64 07/27/18 06:00 Pulse Ox 99 07/27/18 06:00 Constitutional: + ill appearing and + obese Eyes: PERRL, conjunctivae normal, anicteric sclerae Cardiovascular: Rate/Rhythm: + abnormal rate and + abnormal rhythm Extremities: no edema Gastrointestinal (Abdomen): Inspection/Auscultation: + abdomen distended and + hypoactive bowel sounds Results & Data Laboratory Results Laboratory Tests 07/23/18 07/26/18 07/27/18 21:14 15:18 04:51 WBC 6.66 Hgb 9.5 L Hct 29.7 L Plt Count 123 L Sodium Potassium Chloride Carbon Dioxide BUN Creatinine Est GFR (Non-Af Amer) Calcium Magnesium 2.0 Urine Bilirubin Negative Urine Urobilinogen Negative Ur Leukocyte Esterase 1+ H Urine WBC (Auto) >30 H Urine RBC (Auto) 0-4 U Epithel Cells (Auto) >30 H Urine Bacteria (Auto) Negative Ur Renal Epithelial Cell 0-5 Uric Acid Crystals Present H Granular Casts 1-5 H Urine Yeast Budding w/ Hyphae H 07/27/18 04:51 WBC Hgb Hct Plt Count Sodium 143 Potassium 2.9 L Chloride 112 H Carbon Dioxide 21 BUN 37 H Creatinine 2.14 H D Est GFR (Non-Af Amer) 21.0 Calcium 6.0 L Magnesium Urine Bilirubin Urine Urobilinogen Ur Leukocyte Esterase Urine WBC (Auto) Urine RBC (Auto) U Epithel Cells (Auto) Urine Bacteria (Auto) Ur Renal Epithelial Cell Uric Acid Crystals Granular Casts Urine Yeast
[2018-07-27] MEDS: PANTOprazole 40 MG in SYRINGE 0 ML IV SCH (11:24)
[2018-07-27] MEDS ORDERED: POTASSIUM PHOSPHATE 18 MMOL in SODIUM CHLORIDE 0.9% 500 ML IV ONE (12:00)
--- NOTE | 2018-07-27 13:33 | Pharmacy Report ---
Pharmacy Abx Dose Short Note - Date of Service July 27, 2018 - Assessment & Plan Assessment Assessment * 83 year old F admitted for hemoptysis, sepsis from possible urinary vs pulmonary vs GI source, severe dehydration, hypernatremia, MANJULA, and metabolic encephalopathy. Currently receiving VANCOMYCIN IV and CAPSOFUNGIN IV for MRSA pneumonia and devan albicans UTI. ZOSYN was d/c'd yesterday based upon HIDA scan results. * Urine Cx: devan albicans * CXR read at R basilar consolidation + pleural effusion * BAL cx's growing MRSA, fungal smear also showed yeast * MANJULA improving, SCr decreasing (4.02 -->3.15-->2.14) and U.O. increasing. Baseline SCr appears to be ~1.0 Plan Vancomycin * Random vancomycin level this AM = 17.9 (therapeutic) * Will repeat vancomycin today, 1000mg (~14mg/kg) IV x 1 * Will check random level w/ AM labs tomorrow as her dosing interval is still likely at least 24hrs or greater, albiet this may change in the next 24-48hrs * Plan to redose when level 15-20mcg/mL, ideally would like to keep trough closer to 20 given organism's PADMINI of 2 Caspofungin * continue 50mg IV Q 24 hrs for current renal/hepatic fxn * c albicans in urine may not be adequately covered w/ caspofungin given less than ideal urinary penetration. Studies of echinocandin use for fungal cystitis have produced mixed results. QTc is > 500 making tx with Fluconazole less than ideal. Please correlate treatment success clinically.
--- NOTE | 2018-07-27 13:56 | XRay Report ---
XR chest 1V portable HISTORY: 83 years-old Female PICC PLACEMENT RIGHT UPPER ARM H/O A-FIB status post placement of a ri ght-sided PICC COMPARISON: Chest radiograph 07/24/2018 TECHNIQUE: Portable AP view of the chest FINDINGS: Cardiac silhouette is mildly enlarged, unchanged. Pulmonary vascular congestion. Asymmetric interstit ial opacities about the right lung have slightly worsened. Small bilateral pleural effusions with rig ht hemidiaphragm elevation and right greater than left subsegmental bibasilar opacities, slightly pro gressed from comparison. There is no pneumothorax. Enteric tube distal tip is within the region of th e mid gastric lumen. A left-sided internal jugular central venous catheter appears unchanged. Tracheo stomy cannula overlies the midline just below the level of the clavicular heads. A right-sided PICC h as been placed which courses superiorly about the right neck in the distribution of the right interna l jugular vein, distal tip not imaged. Bilateral shoulder arthroplasties. Posterior joe and screw fusion hardware of the thoracolumbar spine and cervical spine. IMPRESSION: 1. Right-sided PICC has been placed which is malpositioned coursing superiorly about the right neck i n the distribution of the right internal jugular vein, distal tip not imaged. Repositioning with foll ow-up imaging is needed. 2. No postprocedural pneumothorax. 3. Remaining lines and tubes appear unchanged. 4. Progressively worsened right basilar consolidative opacities. The above report was generated using voice recognition software. It may contain grammatical, syntax o r spelling errors. Electronically signed by: Rey Campos M.D. 07/27/2018 1:55 PM
[2018-07-27] MEDS: POTASSIUM CHLORIDE / WTR 10 MEQ/100 ML PLCT IV SCH ×4 (14:27→18:46)
[2018-07-27] MEDS: THIAMINE HCL 100 MG TAB PO SCH (14:29)
[2018-07-27] MEDS: PEPTAMEN 1.5 CAL 1,000 ML BAG PO PRN ×2 (14:45→18:34)
[2018-07-27] MEDS: ALBUT/IPRATROP 3MG/0.5MG NEB 3 ML VIAL NEB PRN (15:07)
--- NOTE | 2018-07-27 15:09 | XRay Report ---
XR chest 1V portable HISTORY: 83 years-old Female PICC ADJUSTMENT +bullseye pt has h/o AFIB status post right-sided P ICC COMPARISON: Chest radiograph of same day at 1:29 PM TECHNIQUE: Portable AP view of the chest FINDINGS: Repositioned right-sided PICC with distal tip in the region of the inferior right atrium. No postproc edural pneumothorax identified. Unchanged positioning of the enteric tube, tracheostomy cannula and l eft internal jugular central venous catheter. Cardiac silhouette is enlarged. Persistent bilateral pl eural effusions with right greater left bibasilar opacities. Surgical clips project over the abdominal right upper quadrant. Hardware of the spine and shoulders a gain noted. IMPRESSION: 1. Repositioned PICC with distal tip in the region of the inferior right atrium. No postprocedural pn eumothorax. 2. The remainder of the study is stable from comparison. The above report was generated using voice recognition software. It may contain grammatical, syntax o r spelling errors. Electronically signed by: Rey Campos M.D. 07/27/2018 3:07 PM
--- NOTE | 2018-07-27 16:44 | XRay Report ---
XR chest 1V portable HISTORY: right PICC tip confirmation after withdrawl adjust COMPARISON: No priors for comparison due to PACS downtime. FINDINGS: The right PICC terminates at the superior cavoatrial junction. Tracheostomy tube is single position. Bilateral total shoulder arthroplasties. Bibasilar opacities and small bilateral pleural ef fusions. Thoracolumbar spine fusion hardware. IMPRESSION: The right PICC terminates at the expected location of the superior cavoatrial junction. Electronically signed by: Jeff Maldonado M.D. 07/27/2018 4:42 PM
[2018-07-27] MEDS: CASPOFUNGIN 50 MG in SODIUM CHLORIDE 0.9% 250 ML IV SCH (17:44)
[2018-07-27] MEDS: GABAPENTIN 100 MG CAP PO SCH (19:41)
[2018-07-27] MEDS ORDERED: PANTOprazole 40 MG in SYRINGE 0 ML IV SCH (21:00)
[2018-07-28] MEDS: ALBUT/IPRATROP 3MG/0.5MG NEB 3 ML VIAL NEB PRN ×2 (07:14→19:34)
[2018-07-28 07:16] LABS: Hematocrit (blood only) 29.1 % (37-47); Hemoglobin 9.5 g/dL (12.0-16.0); Mean Corpuscular Hgb Conc 32.6 g/dL (32-36); Mean Corpuscular Volume 92.1 fL (80-100); Mean Platelet Volume 13.8 fL (7.4-10.4); Nucleated RBC # (auto) 0.06 K/uL (0-0); Nucleated RBC % (auto) 0.8 %; Platelet Count 124 K/uL (130-400); RDW Coefficient of Variation 16.8 % (11.5-14.5); RDW Standard Deviation 56.4 fL (36.4-46.3); Red Blood Count 3.16 M/uL (4.2-5.4); White Blood Count 7.24 K/uL (4.8-10.8)
[2018-07-28 07:18] LABS: Basophils # (auto) 0.02 K/uL (0-0.2); Basophils % (auto) 0.3 %; Eosinophils # (auto) 0.08 K/uL (0-0.5); Eosinophils % (auto) 1.1 %; Immature Granulocytes % (auto) 4.1 %; Lymphocytes # (auto) 1.13 K/uL (1.2-3.4); Lymphocytes % (auto) 15.6 %; Monocytes # (auto) 0.58 K/uL (0.11-0.59); Neutrophils # (auto) 5.13 K/uL (1.4-6.5); Neutrophils % (auto) 70.9 %; Polychromasia 1+
[2018-07-28 07:28] LABS: BUN Creatinine Ratio 16.3 (10-20); Creatinine Clr Calc Pharmacy 27.2 ml/min; Est GFR (Non-African American) 31.1; Magnesium 1.6 mg/dl (1.8-2.4); Phosphorus 2.6 mg/dl (2.5-4.9)
[2018-07-28] MEDS: CITALOPRAM 20 MG TAB PO SCH (07:46)
[2018-07-28] MEDS: LEVOTHYROXINE SODIUM 100 MCG TABLET PO SCH (07:46)
[2018-07-28] MEDS: CHOLECALCIFEROL 1,000 UNITS TAB PO SCH (07:47)
[2018-07-28] MEDS: AMIODARONE 200 MG TAB PO SCH (07:47)
[2018-07-28] MEDS: MIDODRINE HCL 2.5 MG TAB PO SCH ×3 (07:47→16:13)
[2018-07-28] MEDS: NYSTATIN SUSP 500,000 U/5 ML UDC PO SCH ×4 (07:48→21:32)
[2018-07-28] MEDS: SUCRALFATE 1 GM/10 ML UDC PO SCH ×4 (07:48→21:32)
[2018-07-28] MEDS: THIAMINE HCL 100 MG TAB PO SCH (07:48)
[2018-07-28] MEDS: DICLOFENAC SOD 1% GEL 100 GM TUBE EXT SCH ×4 (07:49→21:34)
[2018-07-28 07:50] LABS: Partial Thromboplastin Ratio 2.7
--- NOTE | 2018-07-28 09:35 | Pharmacy Report ---
Pharmacy Abx Dose Short Note - Date of Service July 28, 2018 - Assessment & Plan Assessment 83 year old F admitted for hemoptysis, sepsis from possible urinary vs pulmonary vs GI source, severe dehydration, hypernatremia, MANJULA, and metabolic encephalopathy. Currently receiving VANCOMYCIN IV and CAPSOFUNGIN IV for MRSA pneumonia and devan albicans UTI. * MANJULA improving, SCr decreasing (4.02 -->3.15-->2.14-->1.55) Baseline SCr appears to be ~1.0 Plan Vancomycin * Random level of 19.5 mcg/mL is therapeutic * Ordered vancomycin 1 gm x 1. Would anticipate Scr improving tomorrow and would consider starting a q 24 regimen at that time. * Goal trough level ~20 mcg/mL * Random level ordered for: 07/29 Caspofungin * continue 50mg IV Q 24 hrs for current renal/hepatic fxn Pharmacy will continue to follow and will adjust dose/frequency as necessary. Thank you.
[2018-07-28] MEDS ORDERED: VANCOMYCIN HCL 1,000 MG in SODIUM CHLORIDE 0.9% 250 ML IV ONE (09:45)
[2018-07-28] MEDS ORDERED: POTASSIUM CHLORIDE 20 MEQ TABCR PO STA (09:47)
--- NOTE | 2018-07-28 09:58 | Neurology Progress Note ---
Date of Service July 28, 2018 Assessment & Plan (1) MANJULA (acute kidney injury): -- Kidney function is gradually improving, cr down to 1.6 -- continues to have multiple electrolyte abnormality --start on Calcium gluconate 1 gm IV, KCL 40 meq and sodium bicarbonate via feeding tube. (2) Chronic kidney disease, stage III (moderate): -- Baseline creatinine has been ~ 1.0 (3) Hypokalemia: (4) Hypernatremia: -- Serum sodium has corrected. Patient is now on enteral tube feeding, continue 250 cc free water q 6 hours. (5) Sepsis: -- Antibiotic therapy as per ICU team Subjective Karen was seen and examined this morning. She awakens to voice but is nonverbal. She appears to be breathing comfortably via tracheostomy. She is now receiving enteral feedings via coresafe tube. Renal function continues to improve, remain non-oliguric however she continues to have multiple electrolyte abnormality. Physical Exam 2 Vital Signs (Past 24 Hours): Last Vital Signs Temp 37.1 C 07/28/18 07:14 Pulse 79 07/28/18 07:14 Resp 18 07/28/18 07:14 BP 118/72 07/28/18 07:14 Pulse Ox 97 07/28/18 07:14 Constitutional: Awake, alert, chronically ill-appearing Neck: + tracheostomy present Respiratory: normal respiratory effort, lungs clear to auscultation Cardiovascular: Rate/Rhythm: regular rate and regular rhythm Bilateral upper extremity edema, left more than right Gastrointestinal (Abdomen): Soft, nontender Neurologic: Could not be assessed
[2018-07-28] MEDS ORDERED: CALCIUM GLUCONATE 10% 1,000 MG in SODIUM CHLORIDE 0.9% 50 ML IV ONE (10:15)
[2018-07-28] MEDS: SODIUM BICARBONATE 650 MG TAB PO SCH ×2 (10:30→21:34)
[2018-07-28] MEDS: PANTOprazole 40 MG in SYRINGE 0 ML IV SCH (10:30)
[2018-07-28] MEDS: HEPARIN STANDARD DEXTROSE 25,000 UNITS/500 ML IV SCH (11:02)
[2018-07-28] MEDS ORDERED: MoRPHine SULFATE 5 MG/0.25 ML UDP PO ONE (12:27)
[2018-07-28] MEDS: POTASSIUM CHLORIDE / WTR 10 MEQ/100 ML PLCT IV SCH ×4 (12:48→16:12)
--- NOTE | 2018-07-28 13:57 | Ultrasound Report ---
LEFT UPPER EXTREMITY VENOUS DOPPLER HISTORY: ecchymosis COMPARISON STUDY: None. FINDINGS: The left internal jugular vein is patent. There is normal flow within the left subclavian v ein. There is normal flow and compressibility within the left axillary, basilic, brachial, radial, ul lit, and visualized cephalic veins. Subcutaneous edema within the left forearm. There is also heterog eneous appearance to the subcutaneous soft tissues of the left neck. This may represent edema or hemo rrhage. IMPRESSION: No DVT within the left upper extremity. Heterogeneous appearance to the soft tissues of the left nec k which may represent edema or hemorrhage. Electronically signed by: Jeff Maldonado M.D. 07/28/2018 1:55 PM
--- NOTE | 2018-07-28 15:13 | Ultrasound Report ---
US arterial duplex left upper extremity CLINICAL HISTORY: cold hand, sweeling, ecchymosis COMPARISON STUDY: None. FINDINGS: Normal velocities and waveforms seen within the left common carotid artery, vertebral arter y, subclavian artery, axillary, brachial artery, radial artery, ulnar artery. Subcutaneous edema seen within the forearm. No arterial occlusion. IMPRESSION: No significant stenosis or occlusion seen within the left neck or left upper extremity a [place] system. Electronically signed by: Jeff Maldonado M.D. 07/28/2018 3:12 PM
[2018-07-28] MEDS: CASPOFUNGIN 50 MG in SODIUM CHLORIDE 0.9% 250 ML IV SCH (17:47)
[2018-07-28] MEDS: PEPTAMEN 1.5 CAL 1,000 ML BAG PO PRN (18:03)
[2018-07-28] MEDS: ACETAMINOPHEN 325 MG TAB PO PRN (21:31)
[2018-07-28] MEDS: LORazepam 0.5 MG TAB PO PRN (21:31)
[2018-07-28] MEDS: GABAPENTIN 100 MG CAP PO SCH (21:34)
--- NOTE | 2018-07-28 22:47 | Hospitalist Progress Note ---
Date of Service July 28, 2018 Assessment & Plan (1) Hemoptysis: GI: Elevated AP with a thickened gallbladder wall on u/s makes acute cholecystitis possible. However, patient also may just be third spacing. See general surgery notes, went for HIDA this morning. On protonix. Also has severe protein calorie malnutrition (very low albumin). No indication for surgical intervention at this time. Findings were discussed with Dr. Armas. Surgery will sign off, call with questions or concerns. Bloody secretions noted on suction. Slightly increased O2 requirement per daughter. No PNA noted on CXR. Patient HD stable. Hg of 13.8. Possibly secondary to irritation from trach cuff vs mucosal dryness. * Admit with continuous pulse oximetry * Trach collar with humidified O2 * Pulmonary consult - appreciate assistance 07/24 Appreciate pulm input. cont. ceftriaxone. Prognosis appears poor. Especially given her weight loss. Daughter wants patient to remain full code. 07/25 Patient sent to ICU yesterday. Patient is now on ventilator and on pressors. consulted surgery for replacement of trach. awaiting outcome of family meeting. continue antibiotics. 07/26 Off pressors. On caspofungin for Urinary infection On vancomycin for MRSA multidrug from bronchial washings. 07/28 On med surg. No significant clinical improvement. Patient is code status level 5. cont. antibiotics (2) Acute and chronic respiratory failure with hypoxia: On mechanical vent. On zosyn as well. Patient off vasopressors. Taking midodrine. will continue to monitor. (3) Candidal urinary tract infection: On caspofungin. (4) MANJULA (acute kidney injury): On admission: BUN=40, Cr=2.07. Patient with baseline CKD III. Most likely secondary to prerenal azotemia, poor po intake and dehydration * IVF with LR at 100mL/hr x 2 liters * Monitor BUN, Cr, electrolytes and acid/base status * Avoid nephrotoxic agents * Renal dosing where appropirate * Continue Calcitriol 07/26 Appreciate input Clinically suspect MANJULA on the basis of dehydration and sepsis syndrome -- Electrolyte balance is acceptable. No acute indication for BUSINESS SYSTEMS ARCHITECT at this time -- Poor detention dialysis candidate due to advanced age, deconditioned status and multiple comorbid medical conditions Continue IVF. (5) Hypernatremia: En=120. Most likely secondary to dehydration * LR as above * Continue to monitor electrolytes Increased to 160 on the 6th. Now on 145. On normal saline (6) Atrial fibrillation: Rate controlled at present. No anticoagulation. * Continue Amiodarone * Hold Apixaban * Continue to monitor * on heparin. (7) Hypothyroidism: Stable. Chronic * Continue Synthroid (8) Chronic diastolic CHF (congestive heart failure): No overt evidence of volume overload * Continue Metoprolol * Continue to monitor * (9) UTI (urinary tract infection): Afebrile. HD stable at present. * Initially on ceftriaxone. * Now on caspofungin. (10) Chronic kidney disease, stage III (moderate): As above (11) Depression: Stable. Chronic * Conitnue Celexa daily (12) Orthostatic hypotension: Continue Midodrine (13) GERD (gastroesophageal reflux disease): Conitnue Sucralfate (14) Hypotension: improved. Back on midodrine (15) Sepsis: Likely from aspiration pneumonia. Concern over GI infection intially. HIDA scan negative. Stopped zosyn. Continue vanco mycin as bronch washing show multi drug resistant Staph (16) Severe protein-calorie malnutrition: noted due to weight low and low albumin. will promote oral intake. Spent 25 minutes in management of patient Subjective Patient does not provide significant history. Sh does nod to questions and follows simple commands. Physical Exam 2 Vital Signs (Past 24 Hours): Last Vital Signs Temp 37.0 C 07/28/18 15:09 Pulse 95 H 07/28/18 19:34 Resp 18 07/28/18 19:34 BP 120/76 07/28/18 15:09 Pulse Ox 98 07/28/18 19:34 Physical Exam: General: chronically ill in appearance, nods to questions. No longer appears obese. Skin: warm, dry, intact, no rashes or lesions HEENT: NC/AT, PERRL, anicteric sclera, conjunctiva without injection, external ear normal to inspection and nontender, nares patent, dentition intact, no oropharyngeal lesions, neck supple, trachea midline, tracheostomy in place, no LAD, no thyromegaly, no JVD Heart: +S1/S2, regular, no m/r/g Lungs: CTA anteriorly, no rales/rhonchi/wheezes Abd: +BS, soft, diffusely tender with deep palpation, no rebound/guarding/ peritoneal signs Ext: warm, 2+ pulses in UE/LE bilaterally, no clubbing/cyanosis or edema Neuro: patient does not follow commands or provide verbal response, withdraws four extremities from painful stimuli _ (1) UTI (urinary tract infection) Encounter type: Hematuria presence: without hematuria Indwelling urinary catheter type: Urinary tract infection type: acute cystitis Qualified Code(s) : N30.00 - Acute cystitis without hematuria (2) Atrial fibrillation Atrial fibrillation type: chronic Qualified Code(s): I48.2 - Chronic atrial fibrillation (3) Depression Active/Remission status: currently active Depression Type: major depressive disorder Major depression episode severity: moderate Major depression recurrence: unspecified whether recurrent Psychotic features: Trimester: Qualified Code(s): F32.1 - Major depressive disorder, single episode, moderate (4) Hypothyroidism Hypothyroidism type: acquired Qualified Code(s): E03.9 - Hypothyroidism, unspecified (5) GERD (gastroesophageal reflux disease) Esophagitis presence: without esophagitis Qualified Code(s): K21.9 - Gastro- esophageal reflux disease without esophagitis
[2018-07-29] MEDS: ALBUT/IPRATROP 3MG/0.5MG NEB 3 ML VIAL NEB PRN ×3 (04:22→18:58)
[2018-07-29] MEDS: ACETAMINOPHEN 325 MG TAB PO PRN (05:32)
[2018-07-29] MEDS: LORazepam 0.5 MG TAB PO PRN (05:32)
[2018-07-29] MEDS: LEVOTHYROXINE SODIUM 100 MCG TABLET PO SCH (05:49)
[2018-07-29 06:13] LABS: Hematocrit (blood only) 27.3 % (37-47); Hemoglobin 8.7 g/dL (12.0-16.0); Mean Corpuscular Hgb Conc 31.9 g/dL (32-36); Mean Corpuscular Volume 92.9 fL (80-100); Mean Platelet Volume 12.9 fL (7.4-10.4); Nucleated RBC # (auto) 0.02 K/uL (0-0); Nucleated RBC % (auto) 0.3 %; Platelet Count 115 K/uL (130-400); RDW Coefficient of Variation 17.1 % (11.5-14.5); RDW Standard Deviation 57.3 fL (36.4-46.3); Red Blood Count 2.94 M/uL (4.2-5.4); White Blood Count 7.41 K/uL (4.8-10.8)
[2018-07-29 06:26] LABS: Basophils # (auto) 0.01 K/uL (0-0.2); Basophils % (auto) 0.1 %; Eosinophils % (auto) 1.3 %; Immature Granulocytes # (auto) 0.35 K/uL (0.00-0.02); Immature Granulocytes % (auto) 4.7 %; Lymphocytes # (auto) 1.41 K/uL (1.2-3.4); Monocytes # (auto) 0.61 K/uL (0.11-0.59); Monocytes % (auto) 8.2 %; Neutrophils # (auto) 4.93 K/uL (1.4-6.5); Neutrophils % (auto) 66.7 %; Ovalocytes 1+; Tear Drop Cells 1+
[2018-07-29 06:35] LABS: BUN Creatinine Ratio 14.8 (10-20); Calcium 6.2 mg/dl (8.5-10.1); Creatinine Clr Calc Pharmacy 32.2 ml/min; Est GFR (African American) 44.1; Est GFR (Non-African American) 38.1; Magnesium 1.7 mg/dl (1.8-2.4); Phosphorus 2.1 mg/dl (2.5-4.9); Potassium 3.3 mmol/L (3.5-5.1)
[2018-07-29 06:45] LABS: Partial Thromboplastin Ratio 2.3
[2018-07-29 06:50] LABS: Partial Thromboplastin Time 60.8 Seconds (21.0-31.0)
[2018-07-29] MEDS ORDERED: MoRPHine SULFATE 5 MG/0.25 ML UDP PO ONE (08:01)
[2018-07-29] MEDS: MIDODRINE HCL 2.5 MG TAB PO SCH ×3 (08:22→17:22)
[2018-07-29] MEDS: SUCRALFATE 1 GM/10 ML UDC PO SCH ×4 (08:22→19:49)
[2018-07-29] MEDS: CITALOPRAM 20 MG TAB PO SCH (08:22)
[2018-07-29] MEDS: AMIODARONE 200 MG TAB PO SCH (08:22)
[2018-07-29] MEDS: THIAMINE HCL 100 MG TAB PO SCH (08:22)
[2018-07-29] MEDS: CHOLECALCIFEROL 1,000 UNITS TAB PO SCH (08:22)
[2018-07-29] MEDS: DICLOFENAC SOD 1% GEL 100 GM TUBE EXT SCH ×3 (08:23→19:50)
[2018-07-29] MEDS: SODIUM BICARBONATE 650 MG TAB PO SCH ×2 (08:23→21:09)
[2018-07-29] MEDS: NYSTATIN SUSP 500,000 U/5 ML UDC PO SCH ×4 (08:23→19:49)
[2018-07-29] MEDS ORDERED: POTASSIUM PHOS 3 MMOL/1 ML INFUSION IV STA (09:43)
[2018-07-29] MEDS ORDERED: POTASSIUM PHOSPHATE 30 MMOL in SODIUM CHLORIDE 0.9% 500 ML IV ONE (10:15)
--- NOTE | 2018-07-29 10:21 | Pharmacy Report ---
Pharmacy Abx Dose Short Note - Date of Service July 29, 2018 - Assessment & Plan Assessment 83 year old F receiving Vancomycin and Caspofungin for treatment of MRSA pneumonia and devan albicans UTI. Day # 5/7 of vancomycin therapy. * Renal function continues to improve. Plan Vancomycin * Random level of 21.1 mcg/mL is supratherapeutic * Ordered dose of 1000 mg IV every 24 hours * Goal trough level ~20 mcg/mL * No further levels ordered at this time. last dose 07/31 Pharmacy will continue to follow and will adjust dose/frequency as necessary. Thank you.
[2018-07-29] MEDS: VANCOMYCIN HCL 1,000 MG in SODIUM CHLORIDE 0.9% 250 ML IV SCH (10:56)
[2018-07-29] MEDS: MoRPHine SULFATE 5 MG/0.25 ML UDP PO PRN ×2 (11:12→17:48)
--- NOTE | 2018-07-29 11:39 | Nephrology Progress Note ---
Date of Service July 29, 2018 Assessment & Plan (1) MANJULA (acute kidney injury): -- Kidney function is gradually improving, cr down to 1.3 -- continues to have multiple electrolyte abnormality --start on the Tums 1500 milligram 3 times a day --potassium phosphate IV --overall prognosis guarded (2) Chronic kidney disease, stage III (moderate): -- Baseline creatinine has been ~ 1.0 (3) Hypokalemia: -- Serum potassium supplementation has been ordered by primary service. Will monitor (4) Hypernatremia: -- Serum sodium has corrected. Patient is now on enteral tube feeding, continue 250 cc free water q 6 hours. (5) Sepsis: -- Antibiotic therapy as per ICU team Bautista Jones was seen and examined this morning. She awakens to voice but is nonverbal. She appears to be breathing comfortably via tracheostomy. She is now receiving enteral feedings via coresafe tube. Renal function continues to improve, remain non-oliguric however she continues to have multiple electrolyte abnormality. Physical Exam 2 Vital Signs (Past 24 Hours): Last Vital Signs Temp 36.6 C 07/29/18 07:00 Pulse 66 07/29/18 07:12 Resp 20 07/29/18 07:00 BP 110/66 07/29/18 07:00 Pulse Ox 100 07/29/18 07:12 Neck: + tracheostomy present Respiratory: normal respiratory effort, lungs clear to auscultation Cardiovascular: Rate/Rhythm: regular rate and regular rhythm
[2018-07-29] MEDS: CALCIUM CARBONATE 500 MG CHEWABLE TAB PO SCH ×2 (13:00→17:22)
[2018-07-29] MEDS: PANTOprazole 40 MG in SYRINGE 0 ML IV SCH (13:01)
[2018-07-29] MEDS: HEPARIN STANDARD DEXTROSE 25,000 UNITS/500 ML IV SCH (17:06)
[2018-07-29] MEDS: CASPOFUNGIN 50 MG in SODIUM CHLORIDE 0.9% 250 ML IV SCH (17:12)
[2018-07-29] MEDS: GABAPENTIN 100 MG CAP PO SCH (19:49)
--- NOTE | 2018-07-29 22:39 | Hospitalist Progress Note ---
Date of Service July 29, 2018 Assessment & Plan (1) Hemoptysis: GI: Elevated AP with a thickened gallbladder wall on u/s makes acute cholecystitis possible. However, patient also may just be third spacing. See general surgery notes, went for HIDA this morning. On protonix. Also has severe protein calorie malnutrition (very low albumin). No indication for surgical intervention at this time. Findings were discussed with Dr. Armas. Surgery will sign off, call with questions or concerns. Bloody secretions noted on suction. Slightly increased O2 requirement per daughter. No PNA noted on CXR. Patient HD stable. Hg of 13.8. Possibly secondary to irritation from trach cuff vs mucosal dryness. * Admit with continuous pulse oximetry * Trach collar with humidified O2 * Pulmonary consult - appreciate assistance 07/24 Appreciate pulm input. cont. ceftriaxone. Prognosis appears poor. Especially given her weight loss. Daughter wants patient to remain full code. 07/25 Patient sent to ICU yesterday. Patient is now on ventilator and on pressors. consulted surgery for replacement of trach. awaiting outcome of family meeting. continue antibiotics. 07/26 Off pressors. On caspofungin for Urinary infection On vancomycin for MRSA multidrug from bronchial washings. 07/27 On med surg. No significant clinical improvement. Patient is code status level 5/ cont. antibiotics (2) Acute and chronic respiratory failure with hypoxia: On mechanical vent. On zosyn as well. Patient off vasopressors. Taking midodrine. will continue to monitor. (3) Candidal urinary tract infection: On caspofungin. (4) MANJULA (acute kidney injury): On admission: BUN=40, Cr=2.07. Patient with baseline CKD III. Most likely secondary to prerenal azotemia, poor po intake and dehydration * IVF with LR at 100mL/hr x 2 liters * Monitor BUN, Cr, electrolytes and acid/base status * Avoid nephrotoxic agents * Renal dosing where appropirate * Continue Calcitriol 07/27 Appreciate input Clinically suspect MANJULA on the basis of dehydration and sepsis syndrome -- Electrolyte balance is acceptable. 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 (5) Hypernatremia: Pt=338. Most likely secondary to dehydration * LR as above * Continue to monitor electrolytes Increased to 160 on the 6th. Now on 145. On normal saline (6) Atrial fibrillation: Rate controlled at present. No anticoagulation. * Continue Amiodarone * Hold Apixaban * Continue to monitor * (7) Hypothyroidism: Stable. Chronic * Continue Synthroid (8) Chronic diastolic CHF (congestive heart failure): No overt evidence of volume overload * Continue Metoprolol * Continue to monitor * (9) UTI (urinary tract infection): Afebrile. HD stable at present. * Initially on ceftriaxone. * Now on caspofungin. (10) Chronic kidney disease, stage III (moderate): As above (11) Depression: Stable. Chronic * Conitnue Celexa daily (12) Orthostatic hypotension: Continue Midodrine (13) GERD (gastroesophageal reflux disease): Conitnue Sucralfate (14) Hypotension: improved. Back on midodrine (15) Sepsis: Likely from aspiration pneumonia. Concern over GI infection intially. HIDA scan negative. Stopped zosyn. Continue vanco mycin as bronch washing show multi drug resistant Staph (16) Severe protein-calorie malnutrition: noted due to weight low and low albumin. will promote oral intake. Spent 35 minutes in management of patient. Updated caughter. D/W consultants Subjective Patient appears very weak today. No change today. Physical Exam 2 Vital Signs (Past 24 Hours): Last Vital Signs Temp 36.6 C 07/27/18 08:00 Pulse 78 07/27/18 08:00 Resp 22 07/27/18 08:00 BP 98/62 07/27/18 08:00 Pulse Ox 100 07/27/18 08:00 Physical Exam: General: chronically ill in appearance, nods to questions. No longer appears obese Skin: warm, dry, intact, no rashes or lesions HEENT: NC/AT, PERRL, anicteric sclera, conjunctiva without injection, external ear normal to inspection and nontender, nares patent, dentition intact, no oropharyngeal lesions, neck supple, trachea midline, tracheostomy in place, some bleeding at trach site, +small amount of skin breakdown at tracheostomy site, no LAD, no thyromegaly, no JVD Heart: +S1/S2, regular, no m/r/g Lungs: CTA anteriorly, no rales/rhonchi/wheezes Abd: +BS, soft, diffusely tender with deep palpation, no rebound/guarding/ peritoneal signs Ext: warm, 2+ pulses in UE/LE bilaterally, edema and eccymosis noted on left extremity Neuro: patient does not follow commands or provide verbal response, withdraws four extremities from painful stimuli _ (1) UTI (urinary tract infection) Encounter type: Hematuria presence: without hematuria Indwelling urinary catheter type: Urinary tract infection type: acute cystitis Qualified Code(s) : N30.00 - Acute cystitis without hematuria (2) Atrial fibrillation Atrial fibrillation type: chronic Qualified Code(s): I48.2 - Chronic atrial fibrillation (3) Depression Active/Remission status: currently active Depression Type: major depressive disorder Major depression episode severity: moderate Major depression recurrence: unspecified whether recurrent Psychotic features: Trimester: Qualified Code(s): F32.1 - Major depressive disorder, single episode, moderate (4) Hypothyroidism Hypothyroidism type: acquired Qualified Code(s): E03.9 - Hypothyroidism, unspecified (5) GERD (gastroesophageal reflux disease) Esophagitis presence: without esophagitis Qualified Code(s): K21.9 - Gastro- esophageal reflux disease without esophagitis
[2018-07-30] MEDS: PEPTAMEN 1.5 CAL 1,000 ML BAG PO PRN ×4 (00:01→08:56)
[2018-07-30] MEDS: LORazepam 0.5 MG TAB PO PRN (05:04)
[2018-07-30] MEDS: MoRPHine SULFATE 5 MG/0.25 ML UDP PO PRN ×3 (05:04→19:12)
[2018-07-30] MEDS: LEVOTHYROXINE SODIUM 100 MCG TABLET PO SCH (06:00)
[2018-07-30 06:51] LABS: Hematocrit (blood only) 28.8 % (37-47); Hemoglobin 9.5 g/dL (12.0-16.0); Mean Platelet Volume 12.6 fL (7.4-10.4); Nucleated RBC # (auto) 0.02 K/uL (0-0); Nucleated RBC % (auto) 0.2 %; Platelet Count 125 K/uL (130-400); RDW Coefficient of Variation 17.5 % (11.5-14.5); RDW Standard Deviation 58.2 fL (36.4-46.3); Red Blood Count 3.13 M/uL (4.2-5.4); White Blood Count 9.96 K/uL (4.8-10.8)
[2018-07-30 07:05] LABS: BUN Creatinine Ratio 12.6 (10-20); Calcium 6.3 mg/dl (8.5-10.1); Creatinine Clr Calc Pharmacy 35.5 ml/min; Est GFR (African American) 49.6; Est GFR (Non-African American) 42.8; Magnesium 1.5 mg/dl (1.8-2.4); Potassium 3.4 mmol/L (3.5-5.1)
[2018-07-30 07:09] LABS: Phosphorus 3.6 mg/dl (2.5-4.9)
--- NOTE | 2018-07-30 07:12 | Hospitalist Progress Note ---
Date of Service July 29, 2018 Assessment & Plan (1) Hemoptysis: GI: Elevated AP with a thickened gallbladder wall on u/s makes acute cholecystitis possible. However, patient also may just be third spacing. See general surgery notes, went for HIDA this morning. On protonix. Also has severe protein calorie malnutrition (very low albumin). No indication for surgical intervention at this time. Findings were discussed with Dr. Armas. Surgery will sign off, call with questions or concerns. Bloody secretions noted on suction. Slightly increased O2 requirement per daughter. No PNA noted on CXR. Patient HD stable. Hg of 13.8. Possibly secondary to irritation from trach cuff vs mucosal dryness. * Admit with continuous pulse oximetry * Trach collar with humidified O2 * Pulmonary consult - appreciate assistance 07/24 Appreciate pulm input. cont. ceftriaxone. Prognosis appears poor. Especially given her weight loss. Daughter wants patient to remain full code. 07/25 Patient sent to ICU yesterday. Patient is now on ventilator and on pressors. consulted surgery for replacement of trach. awaiting outcome of family meeting. continue antibiotics. 07/26 Off pressors. On caspofungin for Urinary infection On vancomycin for MRSA multidrug from bronchial washings. 07/29 On med surg. No significant clinical improvement. Patient is code status level 5/ cont. antibiotics (2) Acute and chronic respiratory failure with hypoxia: On mechanical vent. On zosyn as well. Patient off vasopressors. Taking midodrine. will continue to monitor. (3) Candidal urinary tract infection: On caspofungin. (4) MANJULA (acute kidney injury): On admission: BUN=40, Cr=2.07. Patient with baseline CKD III. Most likely secondary to prerenal azotemia, poor po intake and dehydration * IVF with LR at 100mL/hr x 2 liters * Monitor BUN, Cr, electrolytes and acid/base status * Avoid nephrotoxic agents * Renal dosing where appropirate * Continue Calcitriol 07/29 Appreciate input Clinically suspect MANJULA on the basis of dehydration and sepsis syndrome -- Electrolyte balance is acceptable. 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 (5) Hypernatremia: Fx=[id number]. Most likely secondary to dehydration * LR as above * Continue to monitor electrolytes Increased to 160 on the 6th. Now on 145. On normal saline (6) Atrial fibrillation: Rate controlled at present. No anticoagulation. * Continue Amiodarone * Hold Apixaban * Continue to monitor * On heparin. * will consider restarted amiodarone (7) Hypothyroidism: Stable. Chronic * Continue Synthroid (8) Chronic diastolic CHF (congestive heart failure): No overt evidence of volume overload * Continue Metoprolol * Continue to monitor * (9) UTI (urinary tract infection): Afebrile. HD stable at present. * Initially on ceftriaxone. * Now on caspofungin. (10) Chronic kidney disease, stage III (moderate): As above (11) Depression: Stable. Chronic * Conitnue Celexa daily (12) Orthostatic hypotension: Continue Midodrine (13) GERD (gastroesophageal reflux disease): Conitnue Sucralfate (14) Hypotension: improved. Back on midodrine (15) Sepsis: Likely from aspiration pneumonia. Concern over GI infection intially. HIDA scan negative. Stopped zosyn. Continue vanco mycin as bronch washing show multi drug resistant Staph (16) Peripheral edema: Ecchymosis noted on left arm. No clots or arterial deficiencies noted on u/s (17) Hypokalemia: replacing daily (18) Severe protein-calorie malnutrition: noted due to weight low and low albumin. will promote oral intake. Spent 25 minutes in management of patient Subjective Patient appears very weak today. No change today. Physical Exam 2 Vital Signs (Past 24 Hours): Last Vital Signs Temp 36.6 C 07/29/18 22:51 Pulse 88 07/29/18 22:51 Resp 24 07/29/18 22:51 BP 124/68 07/29/18 22:51 Pulse Ox 100 07/29/18 22:51 Physical Exam: General: chronically ill in appearance, nods to questions. No longer appears obese. Skin: warm, dry, intact, no rashes or lesions HEENT: NC/AT, PERRL, anicteric sclera, conjunctiva without injection, external ear normal to inspection and nontender, nares patent, dentition intact, no oropharyngeal lesions, neck supple, trachea midline, tracheostomy in place, no LAD, no thyromegaly, no JVD Heart: +S1/S2, regular, no m/r/g Lungs: CTA anteriorly, no rales/rhonchi/wheezes Abd: +BS, soft, diffusely tender with deep palpation, no rebound/guarding/ peritoneal signs Ext: warm, 2+ pulses in UE/LE bilaterally, no clubbing/cyanosis or edema Neuro: patient does not follow commands or provide verbal response, withdraws four extremities from painful stimuli _ (1) UTI (urinary tract infection) Encounter type: Hematuria presence: without hematuria Indwelling urinary catheter type: Urinary tract infection type: acute cystitis Qualified Code(s) : N30.00 - Acute cystitis without hematuria (2) Atrial fibrillation Atrial fibrillation type: chronic Qualified Code(s): I48.2 - Chronic atrial fibrillation (3) Depression Active/Remission status: currently active Depression Type: major depressive disorder Major depression episode severity: moderate Major depression recurrence: unspecified whether recurrent Psychotic features: Trimester: Qualified Code(s): F32.1 - Major depressive disorder, single episode, moderate (4) Hypothyroidism Hypothyroidism type: acquired Qualified Code(s): E03.9 - Hypothyroidism, unspecified (5) GERD (gastroesophageal reflux disease) Esophagitis presence: without esophagitis Qualified Code(s): K21.9 - Gastro- esophageal reflux disease without esophagitis
[2018-07-30 07:21] LABS: Basophils # (auto) 0.01 K/uL (0-0.2); Basophils % (auto) 0.1 %; Echinocytes 1+; Eosinophils # (auto) 0.09 K/uL (0-0.5); Eosinophils % (auto) 0.9 %; Immature Granulocytes # (auto) 0.39 K/uL (0.00-0.02); Immature Granulocytes % (auto) 3.9 %; Lymphocytes # (auto) 1.73 K/uL (1.2-3.4); Lymphocytes % (auto) 17.4 %; Monocytes # (auto) 0.69 K/uL (0.11-0.59); Monocytes % (auto) 6.9 %; Neutrophils # (auto) 7.05 K/uL (1.4-6.5); Neutrophils % (auto) 70.8 %; Tear Drop Cells 1+
[2018-07-30 07:23] LABS: Partial Thromboplastin Ratio 2.2
[2018-07-30 07:26] LABS: Partial Thromboplastin Time 56.9 Seconds (21.0-31.0)
[2018-07-30] MEDS: MAGNESIUM SULFATE / D5W 1 GM/100 ML BAG IV SCH ×2 (08:15→09:50)
[2018-07-30] MEDS: CALCIUM CARBONATE 500 MG CHEWABLE TAB PO SCH ×3 (08:19→18:23)
[2018-07-30] MEDS: MIDODRINE HCL 2.5 MG TAB PO SCH ×3 (08:21→17:15)
[2018-07-30] MEDS: AMIODARONE 200 MG TAB PO SCH (08:22)
[2018-07-30] MEDS: THIAMINE HCL 100 MG TAB PO SCH (08:22)
[2018-07-30] MEDS: CITALOPRAM 20 MG TAB PO SCH (08:22)
[2018-07-30] MEDS: CHOLECALCIFEROL 1,000 UNITS TAB PO SCH (08:22)
[2018-07-30] MEDS: SUCRALFATE 1 GM/10 ML UDC PO SCH ×4 (08:22→21:23)
[2018-07-30] MEDS: SODIUM BICARBONATE 650 MG TAB PO SCH ×2 (08:22→21:24)
[2018-07-30] MEDS: PANTOprazole 40 MG in SYRINGE 0 ML IV SCH (08:23)
[2018-07-30] MEDS: NYSTATIN SUSP 500,000 U/5 ML UDC PO SCH ×4 (08:23→21:24)
[2018-07-30] MEDS ORDERED: POTASSIUM CHLORIDE PWD 20 MEQ PACK PO ONE (08:29)
[2018-07-30] MEDS ORDERED: CALCIUM GLUCONATE 10% 1,000 MG in SODIUM CHLORIDE 0.9% 50 ML IV STA (08:33)
[2018-07-30] MEDS: MAGNESIUM OXIDE 400 MG TAB PO SCH ×2 (08:50→21:24)
[2018-07-30] MEDS: DICLOFENAC SOD 1% GEL 100 GM TUBE EXT SCH ×4 (08:57→21:39)
--- NOTE | 2018-07-30 09:47 | Nephrology Progress Note ---
Date of Service July 30, 2018 Assessment & Plan (1) MANJULA (acute kidney injury): -- acute kidney injury resolved, creatinine close to baseline, staying around 1.1-1.2 -- continues to have multiple electrolyte abnormality with ongoing diarrhea and poor GI absorption --continue on the Tums 1500 milligram 3 times a day however patient most likely is not absorbing much, give 1 g calcium gluconate IV now --magnesium being replaced via IV --overall prognosis guarded (2) Chronic kidney disease, stage III (moderate): -- Baseline creatinine has been ~ 1.0 (3) Hypokalemia: (4) Hypernatremia: (5) Sepsis: Bautista Jones was seen and examined this morning. She awakens to voice but is nonverbal. She appears to be breathing comfortably via tracheostomy. She is now receiving enteral feedings. Renal function stable, remain non-oliguric however she continues to have significant diarrhea and multiple electrolyte abnormality. Physical Exam 2 Vital Signs (Past 24 Hours): Last Vital Signs Temp 37.1 C 07/30/18 07:28 Pulse 87 07/30/18 07:28 Resp 16 07/30/18 07:28 BP 133/75 07/30/18 07:28 Pulse Ox 100 07/30/18 07:28 Constitutional: Elderly female, obese, chronically ill-appearing, lethargic, responds to verbal stimuli, nonverbal Neck: + tracheostomy present Respiratory: normal respiratory effort, lungs clear to auscultation Cardiovascular: Rate/Rhythm: regular rate and regular rhythm
[2018-07-30] MEDS: VANCOMYCIN HCL 1,000 MG in SODIUM CHLORIDE 0.9% 250 ML IV SCH (09:53)
--- NOTE | 2018-07-30 12:26 | Pharmacy Report ---
Pharmacy Abx Dose Short Note - Date of Service July 30, 2018 - Assessment & Plan Assessment 83 year old F receiving vancomycin and caspofungin for treatment of pneumonia Day # 7/7 of caspofungin therapy, day #6/7 of vancomycin therapy. Plan Vancomycin * Continue dose of 1 gm q24h but give last dose tomorrow just slightly early ( 0800) since renal function has improved and want to keep level ~20 mcg/mL with PADMINI = 2 * No further levels since last day of therapy will be tomorrow Pharmacy will continue to follow and will adjust dose/frequency as necessary. Thank you.
--- NOTE | 2018-07-30 16:41 | Pulmonology Progress Note ---
Date of Service July 30, 2018 Assessment & Plan (1) Acute and chronic respiratory failure with hypoxia: Continue trach collar; discuss goals with family. Grim overall prognosis. Monitor respiratory status closely; low threshold for transfer back to ICU. Pulmonary toilet. Present on Admission?: Yes Supervising Physician Co-Signing Physician Notes Impression: 83 y.o. 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 Complex history reviewed with difficult clinical condition, worsening overall prognosis with unintentional weight loss over months and family situation with continually changing goals of care and code status noted. Greatly appreciate palliative care involvement given her worsening condition. Recommendations: - agree with palliative care evaluation - on heparin drip; transitioning back to Eliquis now - gentle suctioning only via trach - complete antibiotics: day #7/7 caspofungin; day #6/7 vancomycin today - GI prophylaxis - continue midodrine - grim overall prognosis Will follow with you. Subjective Sitting in bed, minimally responsive to me today, denied pain, gurgling with noises from her tracheostomy. Review of Systems Unobtainable due to endotracheal tube Physical Exam 2 Vital Signs (Past 24 Hours): Last Vital Signs Temp 36.9 C 07/30/18 15:00 Pulse 80 07/30/18 15:00 Resp 20 07/30/18 15:00 BP 136/75 07/30/18 15:00 Pulse Ox 100 07/30/18 15:00 Gen: lying in bed, morbidly obese, chronically ill-appearing, gurgling HEENT: PERRLAB, moist mucus membranes, tracheostomy in place C/D/I; trach collar in place; NG tube in place Neck: trach collar in place; left IJ central line Pulm: gurgling, rales bilaterally; coarse BS bilaterally CV: RRR Abd: obese Ext: 2+ pitting edema noted Psych: unable to assess Neuro: minimal movement; bed-bound Results & Data Laboratory Results Laboratory Results - last 72 hr 07/27/18 07/28/18 07/28/18 19:08 02:51 06:00 WBC RBC Hgb Hct MCV MCH MCHC RDW Std Deviation RDW Coeff of Cem Plt Count MPV Immature Gran % (Auto) Neut % (Auto) Lymph % (Auto) [place] % (Auto) Eos % (Auto) Baso % (Auto) Immature Gran # (Auto) Neut # (Auto) Lymph # (Auto) [place] # (Auto) Eos # (Auto) Baso # (Auto) Absolute Nucleated RBC Nucleated RBC % (auto) Platelet Estimate Polychromasia Tear Drop Cells Ovalocytes Echinocytes APTT PTT Ratio Sodium Potassium Chloride Carbon Dioxide Anion Gap BUN Creatinine Est Cr Clr Drug Dosing Est GFR ( Amer) Est GFR (Non-Af Amer) BUN/Creatinine Ratio Glucose POC Glucose 96 134 H Calcium Phosphorus Magnesium Stl C. diff Tox B Gene Neg C.diff Toxin B Random Vancomycin 07/28/18 07/28/18 07/28/18 06:05 06:15 06:15 WBC 7.24 RBC 3.16 L Hgb 9.5 L Hct 29.1 L MCV 92.1 MCH 30.1 MCHC 32.6 RDW Std Deviation 56.4 H RDW Coeff of Cem 16.8 H Plt Count 124 L MPV 13.8 H Immature Gran % (Auto) 4.1 Neut % (Auto) 70.9 Lymph % (Auto) 15.6 [place] % (Auto) 8.0 Eos % (Auto) 1.1 Baso % (Auto) 0.3 Immature Gran # (Auto) 0.30 H Neut # (Auto) 5.13 Lymph # (Auto) 1.13 L [place] # (Auto) 0.58 Eos # (Auto) 0.08 Baso # (Auto) 0.02 Absolute Nucleated RBC 0.06 H Nucleated RBC % (auto) 0.8 Platelet Estimate Decreased Polychromasia 1+ Tear Drop Cells Ovalocytes Echinocytes APTT PTT Ratio Sodium Potassium Chloride Carbon Dioxide Anion Gap BUN Creatinine Est Cr Clr Drug Dosing Est GFR ( Amer) Est GFR (Non-Af Amer) BUN/Creatinine Ratio Glucose POC Glucose 170 H Calcium Phosphorus Magnesium Stl C. diff Tox B Gene Random Vancomycin 19.5 07/28/18 07/28/18 07/28/18 06:15 06:15 14:17 WBC RBC Hgb Hct MCV MCH MCHC RDW Std Deviation RDW Coeff of Cem Plt Count MPV Immature Gran % (Auto) Neut % (Auto) Lymph % (Auto) [place] % (Auto) Eos % (Auto) Baso % (Auto) Immature Gran # (Auto) Neut # (Auto) Lymph # (Auto) [place] # (Auto) Eos # (Auto) Baso # (Auto) Absolute Nucleated RBC Nucleated RBC % (auto) Platelet Estimate Polychromasia Tear Drop Cells Ovalocytes Echinocytes APTT 69.0 H* PTT Ratio 2.7 Sodium 144 Potassium 3.0 L Chloride 114 H Carbon Dioxide 18 L Anion Gap 12.0 H BUN 25 H Creatinine 1.55 H D Est Cr Clr Drug Dosing 27.2 Est GFR ( Amer) 36.0 Est GFR (Non-Af Amer) 31.1 BUN/Creatinine Ratio 16.3 Glucose 147 H POC Glucose 229 H Calcium 6.0 L Phosphorus 2.6 D Magnesium 1.6 L Stl C. diff Tox B Gene Random Vancomycin 07/28/18 07/29/18 07/29/18 17:54 00:16 05:19 WBC RBC Hgb Hct MCV MCH MCHC RDW Std Deviation RDW Coeff of Cem Plt Count MPV Immature Gran % (Auto) Neut % (Auto) Lymph % (Auto) [place] % (Auto) Eos % (Auto) Baso % (Auto) Immature Gran # (Auto) Neut # (Auto) Lymph # (Auto) [place] # (Auto) Eos # (Auto) Baso # (Auto) Absolute Nucleated RBC Nucleated RBC % (auto) Platelet Estimate Polychromasia Tear Drop Cells Ovalocytes Echinocytes APTT PTT Ratio Sodium Potassium Chloride Carbon Dioxide Anion Gap BUN Creatinine Est Cr Clr Drug Dosing Est GFR ( Amer) Est GFR (Non-Af Amer) BUN/Creatinine Ratio Glucose POC Glucose 196 H 191 H Calcium Phosphorus Magnesium Stl C. diff Tox B Gene Random Vancomycin 21.1 07/29/18 07/29/18 07/29/18 05:19 05:19 05:19 WBC 7.41 RBC 2.94 L Hgb 8.7 L Hct 27.3 L MCV 92.9 MCH 29.6 MCHC 31.9 L RDW Std Deviation 57.3 H RDW Coeff of Cem 17.1 H Plt Count 115 L MPV 12.9 H Immature Gran % (Auto) 4.7 Neut % (Auto) 66.7 Lymph % (Auto) 19.0 [place] % (Auto) 8.2 Eos % (Auto) 1.3 Baso % (Auto) 0.1 Immature Gran # (Auto) 0.35 H Neut # (Auto) 4.93 Lymph # (Auto) 1.41 [place] # (Auto) 0.61 H Eos # (Auto) 0.10 Baso # (Auto) 0.01 Absolute Nucleated RBC 0.02 H Nucleated RBC % (auto) 0.3 Platelet Estimate Polychromasia Tear Drop Cells 1+ Ovalocytes 1+ Echinocytes APTT 60.8 H* PTT Ratio 2.3 Sodium 144 Potassium 3.3 L Chloride 116 H Carbon Dioxide 20 L Anion Gap 8.0 BUN 19 H Creatinine 1.31 H Est Cr Clr Drug Dosing 32.2 Est GFR ( Amer) 44.1 Est GFR (Non-Af Amer) 38.1 BUN/Creatinine Ratio 14.8 Glucose 185 H POC Glucose Calcium 6.2 L Phosphorus 2.1 L Magnesium 1.7 L Stl C. diff Tox B Gene Random Vancomycin 07/29/18 07/29/18 07/30/18 05:44 11:40 02:07 WBC RBC Hgb Hct MCV MCH MCHC RDW Std Deviation RDW Coeff of Cem Plt Count MPV Immature Gran % (Auto) Neut % (Auto) Lymph % (Auto) [place] % (Auto) Eos % (Auto) Baso % (Auto) Immature Gran # (Auto) Neut # (Auto) Lymph # (Auto) [place] # (Auto) Eos # (Auto) Baso # (Auto) Absolute Nucleated RBC Nucleated RBC % (auto) Platelet Estimate Polychromasia Tear Drop Cells Ovalocytes Echinocytes APTT PTT Ratio Sodium Potassium Chloride Carbon Dioxide Anion Gap BUN Creatinine Est Cr Clr Drug Dosing Est GFR ( Amer) Est GFR (Non-Af Amer) BUN/Creatinine Ratio Glucose POC Glucose 200 H 216 H 112 H Calcium Phosphorus Magnesium Stl C. diff Tox B Gene Random Vancomycin 07/30/18 07/30/18 07/30/18 05:56 05:56 05:56 WBC 9.96 RBC 3.13 L Hgb 9.5 L Hct 28.8 L MCV 92.0 MCH 30.4 MCHC 33.0 RDW Std Deviation 58.2 H RDW Coeff of Cem 17.5 H Plt Count 125 L MPV 12.6 H Immature Gran % (Auto) 3.9 Neut % (Auto) 70.8 Lymph % (Auto) 17.4 [place] % (Auto) 6.9 Eos % (Auto) 0.9 Baso % (Auto) 0.1 Immature Gran # (Auto) 0.39 H Neut # (Auto) 7.05 H Lymph # (Auto) 1.73 [place] # (Auto) 0.69 H Eos # (Auto) 0.09 Baso # (Auto) 0.01 Absolute Nucleated RBC 0.02 H Nucleated RBC % (auto) 0.2 Platelet Estimate Polychromasia Tear Drop Cells 1+ Ovalocytes Echinocytes 1+ APTT 56.9 H* PTT Ratio 2.2 Sodium 145 Potassium 3.4 L Chloride 115 H Carbon Dioxide 18 L Anion Gap 12.0 H BUN 15 Creatinine 1.19 Est Cr Clr Drug Dosing 35.5 Est GFR ( Amer) 49.6 Est GFR (Non-Af Amer) 42.8 BUN/Creatinine Ratio 12.6 Glucose 112 H POC Glucose Calcium 6.3 L Phosphorus 3.6 D Magnesium 1.5 L Stl C. diff Tox B Gene Random Vancomycin 07/30/18 07/30/18 07:51 11:38 WBC RBC Hgb Hct MCV MCH MCHC RDW Std Deviation RDW Coeff of Cem Plt Count MPV Immature Gran % (Auto) Neut % (Auto) Lymph % (Auto) [place] % (Auto) Eos % (Auto) Baso % (Auto) Immature Gran # (Auto) Neut # (Auto) Lymph # (Auto) [place] # (Auto) Eos # (Auto) Baso # (Auto) Absolute Nucleated RBC Nucleated RBC % (auto) Platelet Estimate Polychromasia Tear Drop Cells Ovalocytes Echinocytes APTT PTT Ratio Sodium Potassium Chloride Carbon Dioxide Anion Gap BUN Creatinine Est Cr Clr Drug Dosing Est GFR ( Amer) Est GFR (Non-Af Amer) BUN/Creatinine Ratio Glucose POC Glucose 125 H 169 H Calcium Phosphorus Magnesium Stl C. diff Tox B Gene Random Vancomycin Medications Administered Current Inpatient Medications Acetaminophen (Tylenol) 650 mg PO BID PRN PRN Reason: Pain Stop: 08/23/18 01:26 Last Admin: 07/29/18 05:32 Dose: 650 mg Albuterol (Duoneb) 3 ml NEB Q4R PRN PRN Reason: Wheezing Stop: 08/24/18 19:49 Last Admin: 07/29/18 18:58 Dose: 3 ml Amiodarone HCl (Cordarone) 200 mg PO DAILY [facility]ER[facility] Stop: 08/23/18 08:59 Last Admin: 07/30/18 08:22 Dose: 200 mg Apixaban (Eliquis) 5 mg PO BID [facility] Stop: 08/29/18 20:59 Artificial Tears (Artificial Tears) 1 drops OP Q6H PRN PRN Reason: DRY EYES Stop: 08/23/18 01:26 Calcitriol (Racaltrol) 0.25 mcg PO DAILY [facility] Stop: 08/23/18 08:59 Last Admin: 07/27/18 08:17 Dose: 0.25 mcg Calcium Carbonate (Tums) 1,500 mg PO TIDM [facility]IN[facility] Stop: 08/28/18 11:59 Last Admin: 07/30/18 11:37 Dose: 1,500 mg Citalopram Hydrobromide (Celexa) 20 mg PO DAILY [facility] Stop: 08/26/18 08:59 Last Admin: 07/30/18 08:22 Dose: 20 mg Diclofenac Sodium (Voltaren 1% Top) 1 appln EXT QID [facility] Stop: 08/23/18 08:59 Last Admin: 07/30/18 12:46 Dose: Not Given Docusate Sodium (Colace) 100 mg PO BID PRN PRN Reason: Constipation Stop: 08/23/18 01:26 Enteral Nutritional Formula (Peptamen 1.5) 1 ml PO DAILY PRN; Protocol PRN Reason: Undecided Stop: 08/26/18 09:48 Last Admin: 07/30/18 08:56 Dose: 50 ml Gabapentin (Neurontin) 100 mg PO QPM [facility]IN[facility] Stop: 08/25/18 20:59 Last Admin: 07/29/18 19:49 Dose: 100 mg Guaifenesin (Mucinex) 1,200 mg PO Q12H PRN PRN Reason: Congestion Stop: 08/23/18 01:26 Heparin Sodium (Beef Lung) (Heparin Sod 10 Unit/Ml Flush) 5 ml FLUSH PRN PRN PRN Reason: Flush Stop: 08/26/18 23:32 Last Admin: 07/30/18 14:32 Dose: 5 ml Caspofungin 50 mg/ Sodium (Chloride) 260 mls @ 250 mls/hr IV DAILY@1800 [facility] Stop: 07/30/18 19:03 Last Infusion: 07/29/18 18:15 Dose: Infused Heparin Sodium/Dextrose (Heparin Sodium/Dextrose) 25,000 units in 500 mls @ 15 mls/hr IV .Q0M [facility]; Protocol Stop: 07/30/18 21:00 Last Titration: 07/30/18 07:31 Dose: 750 units/hr, 15 mls/hr Pantoprazole Sodium 40 mg/ (Syringe) 10 mls @ 5 mls/min IV DAILY@1100 [facility] Stop: 08/26/18 10:59 Last Admin: 07/30/18 08:23 Dose: 5 mls/min Vancomycin HCl 1,000 mg/ (Sodium Chloride) 270 mls @ 125 mls/hr IV Q24H [facility] Stop: 07/31/18 10:10 Last Infusion: 07/30/18 12:03 Dose: Infused Levothyroxine Sodium (Synthroid) 100 mcg PO DAILYBB [facility] Stop: 08/23/18 06:29 Last Admin: 07/30/18 06:00 Dose: 100 mcg Lorazepam (Ativan) 0.5 mg PO Q6H PRN PRN Reason: anxiety/sob Stop: 08/23/18 01:26 Last Admin: 07/30/18 05:04 Dose: 0.5 mg Magnesium Oxide (Mag-Ox) 400 mg PO BID [facility] Stop: 08/29/18 08:59 Last Admin: 07/30/18 08:50 Dose: Not Given Miconazole Nitrate (Desenex) 1 appln EXT DAILY PRN; Protocol PRN Reason: TO SKIN FOLDS Stop: 08/23/18 15:44 Midodrine (Proamatine) 2.5 mg PO TIDM [facility] Stop: 08/23/18 07:59 Last Admin: 07/30/18 11:38 Dose: 2.5 mg Miscellaneous Information (Consult) 1 ea N/A UD PRN; Protocol PRN Reason: Consult Stop: 07/31/18 23:59 Morphine Sulfate (Roxanol) 5 mg PO Q4H PRN PRN Reason: Pain Stop: 08/12/18 07:59 Last Admin: 07/30/18 08:49 Dose: 5 mg Nystatin (Mycostatin) 5 ml PO QID [facility] Stop: 08/23/18 08:59 Last Admin: 07/30/18 11:38 Dose: 5 ml Polyethylene Glycol (Miralax Powder Packet) 1 gm PO DAILY PRN PRN Reason: constipation Stop: 08/23/18 01:26 Ropinirole HCl (Requip) 0.5 mg PO HS [facility] Stop: 08/23/18 20:59 Last Admin: 07/24/18 22:31 Dose: 0.5 mg Sennosides (Senokot) 8.6 mg PO BID PRN PRN Reason: Constipation Stop: 08/23/18 01:26 Sodium Bicarbonate (Sodium Bicarbonate) 650 mg PO BID [facility] Stop: 08/27/18 09:59 Last Admin: 07/30/18 08:22 Dose: 650 mg Sucralfate (Carafate) 1 gm PO QID [facility] Stop: 08/23/18 08:59 Last Admin: 07/30/18 11:38 Dose: 1 gm Thiamine HCl (Vitamin B-1) 100 mg PO QAM [facility] Stop: 08/26/18 08:59 Last Admin: 07/30/18 08:22 Dose: 100 mg Vitamin D (Vitamin D3) 2,000 units PO DAILY [facility] Stop: 08/26/18 08:59 Last Admin: 07/30/18 08:22 Dose: 2,000 units
[2018-07-30] MEDS: CASPOFUNGIN 50 MG in SODIUM CHLORIDE 0.9% 250 ML IV SCH (17:30)
[2018-07-30] MEDS: GABAPENTIN 100 MG CAP PO SCH (21:24)
[2018-07-30] MEDS: APIXABAN 5 MG TABLET PO SCH (21:39)
[2018-07-31] MEDS: PEPTAMEN 1.5 CAL 1,000 ML BAG PO PRN (01:29)
[2018-07-31] MEDS: LEVOTHYROXINE SODIUM 100 MCG TABLET PO SCH (06:19)
--- NOTE | 2018-07-31 07:00 | Hospitalist Progress Note ---
Date of Service July 30, 2018 Assessment & Plan (1) Hemoptysis: GI: Elevated AP with a thickened gallbladder wall on u/s makes acute cholecystitis possible. However, patient also may just be third spacing. See general surgery notes, went for HIDA this morning. On protonix. Also has severe protein calorie malnutrition (very low albumin). No indication for surgical intervention at this time. Findings were discussed with Dr. Armas. Surgery will sign off, call with questions or concerns. Bloody secretions noted on suction. Slightly increased O2 requirement per daughter. No PNA noted on CXR. Patient HD stable. Hg of 13.8. Possibly secondary to irritation from trach cuff vs mucosal dryness. * Admit with continuous pulse oximetry * Trach collar with humidified O2 * Pulmonary consult - appreciate assistance 07/24 Appreciate pulm input. cont. ceftriaxone. Prognosis appears poor. Especially given her weight loss. Daughter wants patient to remain full code. 07/25 Patient sent to ICU yesterday. Patient is now on ventilator and on pressors. consulted surgery for replacement of trach. awaiting outcome of family meeting. continue antibiotics. 07/26 Off pressors. On caspofungin for Urinary infection On vancomycin for MRSA multidrug from bronchial washings. 07/30 On med surg. No significant clinical improvement. Patient is code status level 5/ cont. antibiotics poor prognosis (2) Acute and chronic respiratory failure with hypoxia: Off zosyn as well. Now on vancomycin Patient off vasopressors. Taking midodrine. will continue to monitor. (3) Candidal urinary tract infection: was on caspofungin. now discontinued (4) MANJULA (acute kidney injury): On admission: BUN=40, Cr=2.07. Patient with baseline CKD III. Most likely secondary to prerenal azotemia, poor po intake and dehydration * IVF with LR at 100mL/hr x 2 liters * Monitor BUN, Cr, electrolytes and acid/base status * Avoid nephrotoxic agents * Renal dosing where appropirate * Continue Calcitriol 07/30 Appreciate input Clinically suspect MANJULA on the basis of dehydration and sepsis syndrome -- Electrolyte balance is acceptable. 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 Nephro has signed off. will need to replace electrolytes (5) Hypernatremia: Xf=[id number]. Most likely secondary to dehydration * LR as above * Continue to monitor electrolytes Increased to 160 on the 6th. Now on 145. On normal saline (6) Atrial fibrillation: Rate controlled at present. No anticoagulation. * Continue Amiodarone * Hold Apixaban * Continue to monitor * On heparin. * will consider restarted amiodarone (7) Hypothyroidism: Stable. Chronic * Continue Synthroid (8) Chronic diastolic CHF (congestive heart failure): No overt evidence of volume overload * Continue Metoprolol * Continue to monitor * (9) UTI (urinary tract infection): Afebrile. HD stable at present. * Initially on ceftriaxone. * Now on caspofungin. (10) Chronic kidney disease, stage III (moderate): As above (11) Depression: Stable. Chronic * Conitnue Celexa daily (12) Orthostatic hypotension: Continue Midodrine (13) GERD (gastroesophageal reflux disease): Conitnue Sucralfate (14) Hypotension: improved. Back on midodrine (15) Sepsis: Likely from aspiration pneumonia. Concern over GI infection intially. HIDA scan negative. Stopped zosyn. Continue vanco mycin as bronch washing show multi drug resistant Staph (16) Peripheral edema: Ecchymosis noted on left arm. No clots or arterial deficiencies noted on u/s (17) Hypokalemia: replacing daily (18) Severe protein-calorie malnutrition: noted due to weight low and low albumin. will promote oral intake. Spent 25 minutes in management of patient Poor prognosis. Subjective Patient appears very weak today. No change today. Physical Exam 2 Vital Signs (Past 24 Hours): Last Vital Signs Temp 37.0 C 07/30/18 23:00 Pulse 80 07/30/18 23:00 Resp 20 07/30/18 23:00 BP 127/77 07/30/18 23:00 Pulse Ox 100 07/30/18 23:00 Physical Exam: General: chronically ill in appearance, nods to questions. No longer appears obese. Skin: warm, dry, intact, no rashes or lesions HEENT: NC/AT, PERRL, anicteric sclera, conjunctiva without injection, external ear normal to inspection and nontender, nares patent, dentition intact, no oropharyngeal lesions, neck supple, trachea midline, tracheostomy in place, no LAD, no thyromegaly, no JVD Heart: +S1/S2, regular, no m/r/g Lungs: CTA anteriorly, no rales/rhonchi/wheezes Abd: +BS, soft, diffusely tender with deep palpation, no rebound/guarding/ peritoneal signs Ext: warm, 2+ pulses in UE/LE bilaterally, no clubbing/cyanosis or edema Neuro: Patient follows commands and squeezes hand. she also nods to questions _ (1) UTI (urinary tract infection) Encounter type: Hematuria presence: without hematuria Indwelling urinary catheter type: Urinary tract infection type: acute cystitis Qualified Code(s) : N30.00 - Acute cystitis without hematuria (2) Atrial fibrillation Atrial fibrillation type: chronic Qualified Code(s): I48.2 - Chronic atrial fibrillation (3) Depression Active/Remission status: currently active Depression Type: major depressive disorder Major depression episode severity: moderate Major depression recurrence: unspecified whether recurrent Psychotic features: Trimester: Qualified Code(s): F32.1 - Major depressive disorder, single episode, moderate (4) Hypothyroidism Hypothyroidism type: acquired Qualified Code(s): E03.9 - Hypothyroidism, unspecified (5) GERD (gastroesophageal reflux disease) Esophagitis presence: without esophagitis Qualified Code(s): K21.9 - Gastro- esophageal reflux disease without esophagitis
[2018-07-31 07:15] LABS: Albumin Level 1.6 gm/dl (3.4-5.0); BUN Creatinine Ratio 10.9 (10-20); Calcium 7.1 mg/dl (8.5-10.1); Creatinine Clr Calc Pharmacy 36.1 ml/min; Est GFR (African American) 50.6; Est GFR (Non-African American) 43.7; Phosphorus 3.3 mg/dl (2.5-4.9); Potassium 4.1 mmol/L (3.5-5.1)
[2018-07-31] MEDS: HEPARIN STANDARD DEXTROSE 25,000 UNITS/500 ML IV SCH ×2 (07:35→07:36)
[2018-07-31] MEDS: VANCOMYCIN HCL 1,000 MG in SODIUM CHLORIDE 0.9% 250 ML IV SCH (07:42)
[2018-07-31] MEDS: NYSTATIN SUSP 500,000 U/5 ML UDC PO SCH ×4 (07:43→21:45)
[2018-07-31] MEDS: MIDODRINE HCL 2.5 MG TAB PO SCH ×3 (07:43→16:16)
[2018-07-31] MEDS: CALCIUM CARBONATE 500 MG CHEWABLE TAB PO SCH ×3 (07:43→16:17)
[2018-07-31] MEDS: AMIODARONE 200 MG TAB PO SCH (07:43)
[2018-07-31] MEDS: APIXABAN 5 MG TABLET PO SCH ×2 (07:43→21:45)
[2018-07-31] MEDS: THIAMINE HCL 100 MG TAB PO SCH (07:44)
[2018-07-31] MEDS: CITALOPRAM 20 MG TAB PO SCH (07:44)
[2018-07-31] MEDS: MAGNESIUM OXIDE 400 MG TAB PO SCH ×2 (07:44→21:45)
[2018-07-31] MEDS: SODIUM BICARBONATE 650 MG TAB PO SCH ×2 (07:44→21:46)
[2018-07-31] MEDS: SUCRALFATE 1 GM/10 ML UDC PO SCH ×4 (07:44→21:45)
[2018-07-31] MEDS: CHOLECALCIFEROL 1,000 UNITS TAB PO SCH (07:44)
[2018-07-31] MEDS: DICLOFENAC SOD 1% GEL 100 GM TUBE EXT SCH ×4 (07:45→21:54)
[2018-07-31] MEDS: PANTOprazole 40 MG in SYRINGE 0 ML IV SCH (10:03)
--- NOTE | 2018-07-31 16:54 | Pulmonology Progress Note ---
Date of Service July 31, 2018 Assessment & Plan (1) Acute and chronic respiratory failure with hypoxia: Continue trach collar; discuss goals with family. Grim overall prognosis. Monitor respiratory status closely; low threshold for transfer back to ICU. Pulmonary toilet. Supervising Physician Co-Signing Physician Notes Impression: 83 y.o. 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 Complex history reviewed with difficult clinical condition, worsening overall prognosis with unintentional weight loss over months and family situation with continually changing goals of care and code status noted. Greatly appreciate palliative care involvement given her worsening condition. Patient looks much better today but attempts to have a goals discussion with daughter today was met with severe hostility. Daughter believes that patient is improving and warned me against prognosticating stating that last week she was told that her mother might not make it and that she defied the odds. Recommendations: - agree with palliative care evaluation but situation is difficult - continue Eliquis - gentle suctioning only via trach - complete antibiotic course - GI prophylaxis - continue midodrine - grim overall prognosis - start placement Will follow with you. Subjective Sitting in bed, much more interactive today answering simple yes/no questions with nods. Daughter at bedside. Physical Exam 2 Vital Signs (Past 24 Hours): Last Vital Signs Temp 37 C 07/31/18 15:58 Pulse 89 07/31/18 15:58 Resp 16 07/31/18 15:58 BP 127/78 07/31/18 15:58 Pulse Ox 98 07/31/18 15:58 Gen: lying in bed, morbidly obese, chronically ill-appearing HEENT: PERRLAB, moist mucus membranes, tracheostomy in place C/D/I; trach collar in place; NG tube in place Neck: trach collar in place; left IJ central line Pulm: coarse BS bilaterally CV: RRR Abd: obese Ext: 2+ pitting edema noted Psych: responsive to simple questions Neuro: moving more purposefully today
[2018-07-31] MEDS: GABAPENTIN 100 MG CAP PO SCH (21:46)
--- NOTE | 2018-07-31 23:11 | Hospitalist Progress Note ---
Date of Service July 31, 2018 Assessment & Plan (1) Chronic cholecystitis: US with evidence of small stones and sludge but equivocal for infection HIDA showed no evidence of cystic duct obstruction thus ruling out acute cholecystitis however, there was delayed filling of gall bladder and EF was noted to be 5% diagnosis would be chronic cholecystitis vs dykinesis d/w daughter, cannot perform surgery will try a course of Cipro/Flagyl to see if appetite improves not really a candidate for percutaneous drain either (2) Hemoptysis: resolved, was likely due to irritation from tracheostomy (3) Acute and chronic respiratory failure with hypoxia: no evidence of pneumonia at this time hypoxia due to chronic lung disease, tracheostomy (4) Candidal urinary tract infection: was on caspofungin. now discontinued (5) MANJULA (acute kidney injury): patient was dehydrated on admission Cr tamera to 3-4 but now back to baseline at 1 with IV fluids continue to monitor (6) Hypernatremia: resolved (7) Atrial fibrillation: rate controlled continue Amiodarone (8) Hypothyroidism: Stable. Chronic * Continue Synthroid (9) Chronic diastolic CHF (congestive heart failure): euvolemic, continue to monitor volume status (10) Chronic kidney disease, stage III (moderate): As above (11) Depression: continue Celexa (12) Orthostatic hypotension: Continue Midodrine (13) GERD (gastroesophageal reflux disease): Conitnue Sucralfate (14) Hypotension: improved. Back on midodrine (15) Sepsis: treated for pneumonia and now will treat cholecystitis no current evidence of sepsis (16) Peripheral edema: Ecchymosis noted on left arm. No clots or arterial deficiencies noted on u/s (17) Hypokalemia: replacing daily (18) Severe protein-calorie malnutrition: had to stop tube feeds due to elevated residuals cannot tolerate Reglan due to allergy Subjective patient laying in bed, not very responsive difficult night residuals from the feeding tube, tube feeds on hold urinary catheter, rectal tube, tracheostomy in place course breath sounds with coughing and secretions no reported hemoptysis from barrel rifler button of Systems Unobtainable due to reduced consciousness Physical Exam 2 Vital Signs (Past 24 Hours): Last Vital Signs Temp 37 C 07/31/18 15:58 Pulse 89 07/31/18 15:58 Resp 16 07/31/18 15:58 BP 127/78 07/31/18 15:58 Pulse Ox 98 07/31/18 15:58 Constitutional: + ill appearing; no acute distress and + not appropriately hydrated Eyes: PERRL, conjunctivae normal, anicteric sclerae Neck: + abnormal visual inspection (tracheostomy in place with secretions) Respiratory: normal respiratory effort and + cough Auscultation: + diminished lung sounds (bases bilaterally) and + rhonchi (very coarse bilaterally) Cardiovascular: Rate/Rhythm: regular rate and regular rhythm Heart Sounds: normal S1 and normal S2; no murmur Extremities: + edema Gastrointestinal (Abdomen): normal bowel sounds, soft, nontender, no hepatosplenomegaly Musculoskeletal: Head/Neck/Chest: normocephalic and head atraumatic Extremities: + abnormal strength (generalized weakness) Neurologic: patellar DTR's 2+ bilat, sensation intact Psychiatric: Orientation: oriented x 3 Mood: + depressed mood Lymphatic: no cervical or axillary lymphadenopathy Results & Data Laboratory Results Laboratory Results - last 24 hr 07/31/18 07/31/18 07/31/18 00:52 06:05 12:10 Sodium 144 Potassium 4.1 D Chloride 115 H Carbon Dioxide 19 L Anion Gap 10.0 BUN 13 Creatinine 1.17 Est Cr Clr Drug Dosing 36.1 Est GFR ( Amer) 50.6 Est GFR (Non-Af Amer) 43.7 BUN/Creatinine Ratio 10.9 Glucose 117 H POC Glucose 149 H 110 H Calcium 7.1 L Phosphorus 3.3 Albumin 1.6 L Medications Administered Current Inpatient Medications Acetaminophen (Tylenol) 650 mg PO BID PRN PRN Reason: Pain Stop: 08/23/18 01:26 Last Admin: 07/29/18 05:32 Dose: 650 mg Albuterol (Duoneb) 3 ml NEB Q4R PRN PRN Reason: Wheezing Stop: 08/24/18 19:49 Last Admin: 07/29/18 18:58 Dose: 3 ml Amiodarone HCl (Cordarone) 200 mg PO DAILY [facility] Stop: 08/23/18 08:59 Last Admin: 07/31/18 07:43 Dose: 200 mg Apixaban (Eliquis) 5 mg PO BID [facility] Stop: 08/29/18 20:59 Last Admin: 07/31/18 21:45 Dose: 5 mg Artificial Tears (Artificial Tears) 1 drops OP Q6H PRN PRN Reason: DRY EYES Stop: 08/23/18 01:26 Calcitriol (Racaltrol) 0.25 mcg PO DAILY [facility] Stop: 08/23/18 08:59 Last Admin: 07/27/18 08:17 Dose: 0.25 mcg Calcium Carbonate (Tums) 1,500 mg PO TIDM [facility] Stop: 08/28/18 11:59 Last Admin: 07/31/18 16:17 Dose: 1,500 mg Citalopram Hydrobromide (Celexa) 20 mg PO DAILY [facility] Stop: 08/26/18 08:59 Last Admin: 07/31/18 07:44 Dose: 20 mg Diclofenac Sodium (Voltaren 1% Top) 1 appln EXT QID [facility] Stop: 08/23/18 08:59 Last Admin: 07/31/18 21:54 Dose: Not Given Docusate Sodium (Colace) 100 mg PO BID PRN PRN Reason: Constipation Stop: 08/23/18 01:26 Enteral Nutritional Formula (Peptamen 1.5) 1 ml PO DAILY PRN; Protocol PRN Reason: Undecided Stop: 08/26/18 09:48 Last Admin: 07/31/18 01:29 Dose: 1,000 ml Gabapentin (Neurontin) 100 mg PO QPM [facility] Stop: 08/25/18 20:59 Last Admin: 07/31/18 21:46 Dose: 100 mg Guaifenesin (Mucinex) 1,200 mg PO Q12H PRN PRN Reason: Congestion Stop: 08/23/18 01:26 Heparin Sodium (Beef Lung) (Heparin Sod 10 Unit/Ml Flush) 5 ml FLUSH PRN PRN PRN Reason: Flush Stop: 08/26/18 23:32 Last Admin: 07/31/18 06:02 Dose: 15 ml Pantoprazole Sodium 40 mg/ (Syringe) 10 mls @ 5 mls/min IV DAILY@1100 [facility] Stop: 08/26/18 10:59 Last Admin: 07/31/18 10:03 Dose: 5 mls/min Levothyroxine Sodium (Synthroid) 100 mcg PO DAILYBB [facility] Stop: 08/23/18 06:29 Last Admin: 07/31/18 06:19 Dose: 100 mcg Lorazepam (Ativan) 0.5 mg PO Q6H PRN PRN Reason: anxiety/sob Stop: 08/23/18 01:26 Last Admin: 07/30/18 05:04 Dose: 0.5 mg Magnesium Oxide (Mag-Ox) 400 mg PO BID [facility] Stop: 08/29/18 08:59 Last Admin: 07/31/18 21:45 Dose: 400 mg Miconazole Nitrate (Desenex) 1 appln EXT DAILY PRN; Protocol PRN Reason: TO SKIN FOLDS Stop: 08/23/18 15:44 Midodrine (Proamatine) 2.5 mg PO TIDM [facility] Stop: 08/23/18 07:59 Last Admin: 07/31/18 16:16 Dose: 2.5 mg Miscellaneous Information (Consult) 1 ea N/A UD PRN; Protocol PRN Reason: Consult Stop: 07/31/18 23:59 Morphine Sulfate (Roxanol) 5 mg PO Q4H PRN PRN Reason: Pain Stop: 08/12/18 07:59 Last Admin: 07/30/18 19:12 Dose: 5 mg Nystatin (Mycostatin) 5 ml PO QID [facility] Stop: 08/23/18 08:59 Last Admin: 07/31/18 21:45 Dose: 5 ml Polyethylene Glycol (Miralax Powder Packet) 1 gm PO DAILY PRN PRN Reason: constipation Stop: 08/23/18 01:26 Ropinirole HCl (Requip) 0.5 mg PO HS [facility] Stop: 08/23/18 20:59 Last Admin: 07/24/18 22:31 Dose: 0.5 mg Sennosides (Senokot) 8.6 mg PO BID PRN PRN Reason: Constipation Stop: 08/23/18 01:26 Sodium Bicarbonate (Sodium Bicarbonate) 650 mg PO BID [facility] Stop: 08/27/18 09:59 Last Admin: 07/31/18 21:46 Dose: 650 mg Sucralfate (Carafate) 1 gm PO QID [facility] Stop: 08/23/18 08:59 Last Admin: 07/31/18 21:45 Dose: 1 gm Thiamine HCl (Vitamin B-1) 100 mg PO QAM [facility] Stop: 08/26/18 08:59 Last Admin: 07/31/18 07:44 Dose: 100 mg Vitamin D (Vitamin D3) 2,000 units PO DAILY [facility] Stop: 08/26/18 08:59 Last Admin: 07/31/18 07:44 Dose: 2,000 units _ (1) Atrial fibrillation Atrial fibrillation type: chronic Qualified Code(s): I48.2 - Chronic atrial fibrillation (2) Depression Active/Remission status: currently active Depression Type: major depressive disorder Major depression episode severity: moderate Major depression recurrence: unspecified whether recurrent Psychotic features: Trimester: Qualified Code(s): F32.1 - Major depressive disorder, single episode, moderate (3) Hypothyroidism Hypothyroidism type: acquired Qualified Code(s): E03.9 - Hypothyroidism, unspecified (4) GERD (gastroesophageal reflux disease) Esophagitis presence: without esophagitis Qualified Code(s): K21.9 - Gastro- esophageal reflux disease without esophagitis
[2018-08-01] MEDS: LEVOTHYROXINE SODIUM 100 MCG TABLET PO SCH (05:40)
[2018-08-01 06:34] LABS: Albumin Level 1.5 gm/dl (3.4-5.0); BUN Creatinine Ratio 11.4 (10-20); Calcium 7.2 mg/dl (8.5-10.1); Creatinine Clr Calc Pharmacy 39.8 ml/min; Est GFR (Non-African American) 49.2; Phosphorus 3.2 mg/dl (2.5-4.9); Potassium 4.1 mmol/L (3.5-5.1)
[2018-08-01] MEDS: SUCRALFATE 1 GM/10 ML UDC PO SCH ×4 (08:28→21:18)
[2018-08-01] MEDS: AMIODARONE 200 MG TAB PO SCH (08:29)
[2018-08-01] MEDS: SODIUM BICARBONATE 650 MG TAB PO SCH ×2 (08:29→21:19)
[2018-08-01] MEDS: MAGNESIUM OXIDE 400 MG TAB PO SCH ×2 (08:29→21:19)
[2018-08-01] MEDS: CITALOPRAM 20 MG TAB PO SCH (08:30)
[2018-08-01] MEDS: THIAMINE HCL 100 MG TAB PO SCH (08:30)
[2018-08-01] MEDS: MIDODRINE HCL 2.5 MG TAB PO SCH ×3 (08:30→16:42)
[2018-08-01] MEDS: CHOLECALCIFEROL 1,000 UNITS TAB PO SCH (08:30)
[2018-08-01] MEDS: CALCIUM CARBONATE 500 MG CHEWABLE TAB PO SCH ×3 (08:31→16:43)
[2018-08-01] MEDS: APIXABAN 5 MG TABLET PO SCH ×2 (08:32→21:19)
[2018-08-01] MEDS: NYSTATIN SUSP 500,000 U/5 ML UDC PO SCH ×4 (08:51→21:18)
[2018-08-01] MEDS: DICLOFENAC SOD 1% GEL 100 GM TUBE EXT SCH ×4 (08:51→21:32)
[2018-08-01] MEDS: PANTOprazole 40 MG in SYRINGE 0 ML IV SCH (12:13)
--- NOTE | 2018-08-01 12:55 | Pulmonology Progress Note ---
Date of Service August 01, 2018 Assessment & Plan (1) Acute and chronic respiratory failure with hypoxia: Continue trach collar; discuss goals with family. Grim overall prognosis. Monitor respiratory status closely; low threshold for transfer back to ICU. Pulmonary toilet. Supervising Physician Co-Signing Physician Notes Impression: 83 y.o. 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 Complex history reviewed with difficult clinical condition, worsening overall prognosis with unintentional weight loss over months and family situation with continually changing goals of care and code status noted. Greatly appreciate palliative care involvement given her worsening condition. Per nursing tube feeds had high residuals but now resolved. Would re-address PEG with daughter given long-term nutrition needs, unintentional weight loss for months and critical illness. Recommendations: - agree with palliative care evaluation but situation is difficult - continue Eliquis - gentle suctioning only via trach - GI prophylaxis - continue midodrine - grim overall prognosis - need to discuss PEG with daughter - start placement Will follow with you. Subjective Sleeping. No distress. Physical Exam 2 Vital Signs (Past 24 Hours): Last Vital Signs Temp 36.7 C 08/01/18 06:52 Pulse 83 08/01/18 06:52 Resp 22 08/01/18 06:52 BP 154/80 H 08/01/18 06:52 Pulse Ox 100 08/01/18 06:52 Gen: lying in bed, morbidly obese, chronically ill-appearing HEENT: PERRLAB, moist mucus membranes, tracheostomy in place C/D/I; trach collar in place; NG tube in place but tube feeds on hold Neck: trach collar in place; left IJ central line Pulm: coarse BS bilaterally CV: RRR Abd: obese Ext: 2+ pitting edema noted Psych: responsive to simple questions Neuro: sleeping Results & Data Laboratory Results Laboratory Results - last 72 hr 07/30/18 07/30/18 07/30/18 02:07 05:56 05:56 WBC 9.96 RBC 3.13 L Hgb 9.5 L Hct 28.8 L MCV 92.0 MCH 30.4 MCHC 33.0 RDW Std Deviation 58.2 H RDW Coeff of Cem 17.5 H Plt Count 125 L MPV 12.6 H Immature Gran % (Auto) 3.9 Neut % (Auto) 70.8 Lymph % (Auto) 17.4 [place]cock % (Auto) 6.9 Eos % (Auto) 0.9 Baso % (Auto) 0.1 Immature Gran # (Auto) 0.39 H Neut # (Auto) 7.05 H Lymph # (Auto) 1.73 [place]cock # (Auto) 0.69 H Eos # (Auto) 0.09 Baso # (Auto) 0.01 Absolute Nucleated RBC 0.02 H Nucleated RBC % (auto) 0.2 Tear Drop Cells 1+ Echinocytes 1+ APTT PTT Ratio Sodium 145 Potassium 3.4 L Chloride 115 H Carbon Dioxide 18 L Anion Gap 12.0 H BUN 15 Creatinine 1.19 Est Cr Clr Drug Dosing 35.5 Est GFR ( Amer) 49.6 Est GFR (Non-Af Amer) 42.8 BUN/Creatinine Ratio 12.6 Glucose 112 H POC Glucose 112 H Calcium 6.3 L Phosphorus 3.6 D Magnesium 1.5 L Albumin 07/30/18 07/30/18 07/30/18 05:56 07:51 11:38 WBC RBC Hgb Hct MCV MCH MCHC RDW Std Deviation RDW Coeff of Cem Plt Count MPV Immature Gran % (Auto) Neut % (Auto) Lymph % (Auto) [place]cock % (Auto) Eos % (Auto) Baso % (Auto) Immature Gran # (Auto) Neut # (Auto) Lymph # (Auto) [place]cock # (Auto) Eos # (Auto) Baso # (Auto) Absolute Nucleated RBC Nucleated RBC % (auto) Tear Drop Cells Echinocytes APTT 56.9 H* PTT Ratio 2.2 Sodium Potassium Chloride Carbon Dioxide Anion Gap BUN Creatinine Est Cr Clr Drug Dosing Est GFR ( Amer) Est GFR (Non-Af Amer) BUN/Creatinine Ratio Glucose POC Glucose 125 H 169 H Calcium Phosphorus Magnesium Albumin 07/31/18 07/31/18 07/31/18 00:52 06:05 12:10 WBC RBC Hgb Hct MCV MCH MCHC RDW Std Deviation RDW Coeff of Cem Plt Count MPV Immature Gran % (Auto) Neut % (Auto) Lymph % (Auto) [place]cock % (Auto) Eos % (Auto) Baso % (Auto) Immature Gran # (Auto) Neut # (Auto) Lymph # (Auto) Glasscock # (Auto) Eos # (Auto) Baso # (Auto) Absolute Nucleated RBC Nucleated RBC % (auto) Tear Drop Cells Echinocytes APTT PTT Ratio Sodium 144 Potassium 4.1 D Chloride 115 H Carbon Dioxide 19 L Anion Gap 10.0 BUN 13 Creatinine 1.17 Est Cr Clr Drug Dosing 36.1 Est GFR ( Amer) 50.6 Est GFR (Non-Af Amer) 43.7 BUN/Creatinine Ratio 10.9 Glucose 117 H POC Glucose 149 H 110 H Calcium 7.1 L Phosphorus 3.3 Magnesium Albumin 1.6 L 08/01/18 08/01/18 05:37 06:58 WBC RBC Hgb Hct MCV MCH MCHC RDW Std Deviation RDW Coeff of Cem Plt Count MPV Immature Gran % (Auto) Neut % (Auto) Lymph % (Auto) [place]cock % (Auto) Eos % (Auto) Baso % (Auto) Immature Gran # (Auto) Neut # (Auto) Lymph # (Auto) [place]cock # (Auto) Eos # (Auto) Baso # (Auto) Absolute Nucleated RBC Nucleated RBC % (auto) Tear Drop Cells Echinocytes APTT PTT Ratio Sodium 144 Potassium 4.1 Chloride 115 H Carbon Dioxide 21 Anion Gap 8.0 BUN 12 Creatinine 1.06 Est Cr Clr Drug Dosing 39.8 Est GFR ( Amer) 57.0 Est GFR (Non-Af Amer) 49.2 BUN/Creatinine Ratio 11.4 Glucose 73 POC Glucose 83 Calcium 7.2 L Phosphorus 3.2 Magnesium Albumin 1.5 L Medications Administered Current Inpatient Medications Acetaminophen (Tylenol) 650 mg PO BID PRN PRN Reason: Pain Stop: 08/23/18 01:26 Last Admin: 07/29/18 05:32 Dose: 650 mg Albuterol (Duoneb) 3 ml NEB Q4R PRN PRN Reason: Wheezing Stop: 08/24/18 19:49 Last Admin: 07/29/18 18:58 Dose: 3 ml Amiodarone HCl (Cordarone) 200 mg PO DAILY [facility] Stop: 08/23/18 08:59 Last Admin: 08/01/18 08:29 Dose: 200 mg Apixaban (Eliquis) 5 mg PO BID [facility] Stop: 08/29/18 20:59 Last Admin: 08/01/18 08:32 Dose: 5 mg Artificial Tears (Artificial Tears) 1 drops OP Q6H PRN PRN Reason: DRY EYES Stop: 08/23/18 01:26 Calcitriol (Racaltrol) 0.25 mcg PO DAILY [facility] Stop: 08/23/18 08:59 Last Admin: 07/27/18 08:17 Dose: 0.25 mcg Calcium Carbonate (Tums) 1,500 mg PO TIDM [facility] Stop: 08/28/18 11:59 Last Admin: 08/01/18 12:13 Dose: 1,500 mg Citalopram Hydrobromide (Celexa) 20 mg PO DAILY [facility] Stop: 08/26/18 08:59 Last Admin: 08/01/18 08:30 Dose: 20 mg Diclofenac Sodium (Voltaren 1% Top) 1 appln EXT QID [facility] Stop: 08/23/18 08:59 Last Admin: 08/01/18 12:31 Dose: 1 appln Docusate Sodium (Colace) 100 mg PO BID PRN PRN Reason: Constipation Stop: 08/23/18 01:26 Enteral Nutritional Formula (Peptamen 1.5) 1 ml PO DAILY PRN; Protocol PRN Reason: Undecided Stop: 08/26/18 09:48 Last Admin: 07/31/18 01:29 Dose: 1,000 ml Gabapentin (Neurontin) 100 mg PO QPM [facility] Stop: 08/25/18 20:59 Last Admin: 07/31/18 21:46 Dose: 100 mg Guaifenesin (Mucinex) 1,200 mg PO Q12H PRN PRN Reason: Congestion Stop: 08/23/18 01:26 Heparin Sodium (Beef Lung) (Heparin Sod 10 Unit/Ml Flush) 5 ml FLUSH PRN PRN PRN Reason: Flush Stop: 08/26/18 23:32 Last Admin: 08/01/18 12:16 Dose: 5 ml Pantoprazole Sodium 40 mg/ (Syringe) 10 mls @ 5 mls/min IV DAILY@1100 [facility] Stop: 08/26/18 10:59 Last Admin: 08/01/18 12:13 Dose: 5 mls/min Levothyroxine Sodium (Synthroid) 100 mcg PO DAILYBB [facility] Stop: 08/23/18 06:29 Last Admin: 08/01/18 05:40 Dose: 100 mcg Lorazepam (Ativan) 0.5 mg PO Q6H PRN PRN Reason: anxiety/sob Stop: 08/23/18 01:26 Last Admin: 07/30/18 05:04 Dose: 0.5 mg Magnesium Oxide (Mag-Ox) 400 mg PO BID [facility] Stop: 08/29/18 08:59 Last Admin: 08/01/18 08:29 Dose: 400 mg Miconazole Nitrate (Desenex) 1 appln EXT DAILY PRN; Protocol PRN Reason: TO SKIN FOLDS Stop: 08/23/18 15:44 Midodrine (Proamatine) 2.5 mg PO TIDM [facility] Stop: 08/23/18 07:59 Last Admin: 08/01/18 12:14 Dose: 2.5 mg Morphine Sulfate (Roxanol) 5 mg PO Q4H PRN PRN Reason: Pain Stop: 08/12/18 07:59 Last Admin: 07/30/18 19:12 Dose: 5 mg Nystatin (Mycostatin) 5 ml PO QID [facility] Stop: 08/23/18 08:59 Last Admin: 08/01/18 12:15 Dose: Not Given Polyethylene Glycol (Miralax Powder Packet) 1 gm PO DAILY PRN PRN Reason: constipation Stop: 08/23/18 01:26 Ropinirole HCl (Requip) 0.5 mg PO HS [facility] Stop: 08/23/18 20:59 Last Admin: 07/24/18 22:31 Dose: 0.5 mg Sennosides (Senokot) 8.6 mg PO BID PRN PRN Reason: Constipation Stop: 08/23/18 01:26 Sodium Bicarbonate (Sodium Bicarbonate) 650 mg PO BID [facility] Stop: 08/27/18 09:59 Last Admin: 08/01/18 08:29 Dose: 650 mg Sucralfate (Carafate) 1 gm PO QID [facility] Stop: 08/23/18 08:59 Last Admin: 08/01/18 12:14 Dose: 1 gm Thiamine HCl (Vitamin B-1) 100 mg PO QAM [facility] Stop: 08/26/18 08:59 Last Admin: 08/01/18 08:30 Dose: 100 mg Vitamin D (Vitamin D3) 2,000 units PO DAILY [facility] Stop: 08/26/18 08:59 Last Admin: 08/01/18 08:30 Dose: 2,000 units
[2018-08-01] MEDS: MoRPHine SULFATE 5 MG/0.25 ML UDP PO PRN (17:02)
[2018-08-01] MEDS: CIPROFLOXACIN 400 MG/200 ML BAG IV SCH (18:01)
[2018-08-01] MEDS: metroNIDAZOLE 500 MG/100 ML BAG IV SCH (18:01)
[2018-08-01] MEDS: PEPTAMEN 1.5 CAL 1,000 ML BAG PO PRN (18:08)
[2018-08-01] MEDS: GABAPENTIN 100 MG CAP PO SCH (21:19)
--- NOTE | 2018-08-01 22:38 | Hospitalist Progress Note ---
Date of Service August 01, 2018 Assessment & Plan (1) Chronic cholecystitis: US with evidence of small stones and sludge but equivocal for infection HIDA showed no evidence of cystic duct obstruction thus ruling out acute cholecystitis however, there was delayed filling of gall bladder and EF was noted to be 5% diagnosis would be chronic cholecystitis vs dykinesis d/w daughter, cannot perform surgery will try a course of Cipro/Flagyl to see if appetite improves not really a candidate for percutaneous drain either (2) Hemoptysis: resolved, was likely due to irritation from tracheostomy (3) Acute and chronic respiratory failure with hypoxia: no evidence of pneumonia at this time hypoxia due to chronic lung disease, tracheostomy (4) Candidal urinary tract infection: was on caspofungin. now discontinued (5) MANJULA (acute kidney injury): patient was dehydrated on admission Cr tamera to 3-4 but now back to baseline at 1 with IV fluids continue to monitor (6) Hypernatremia: resolved (7) Atrial fibrillation: rate controlled continue Amiodarone (8) Hypothyroidism: Stable. Chronic * Continue Synthroid (9) Chronic diastolic CHF (congestive heart failure): euvolemic, continue to monitor volume status (10) Chronic kidney disease, stage III (moderate): As above (11) Depression: continue Celexa (12) Orthostatic hypotension: Continue Midodrine (13) GERD (gastroesophageal reflux disease): Conitnue Sucralfate (14) Hypotension: improved. Back on midodrine (15) Sepsis: treated for pneumonia and now will treat cholecystitis no current evidence of sepsis (16) Peripheral edema: Ecchymosis noted on left arm. No clots or arterial deficiencies noted on u/s (17) Hypokalemia: replacing daily (18) Severe protein-calorie malnutrition: had to stop tube feeds due to elevated residuals cannot tolerate Reglan due to allergy Subjective laying in bed, refusing therapy discussed resuming tube feeds, she refused however, she shakes her head to everything I say long talk with daughter Grisel she still wants her to have all care but be a level 5 she asked about transfusion for Hb of 9.5 and rising asked about iron infusion wanted to know the plan for the gall bladder Review of Systems All systems reviewed & are unremarkable except as noted in HPI & below Physical Exam 2 Vital Signs (Past 24 Hours): Last Vital Signs Temp 37.1 C 08/01/18 15:38 Pulse 89 08/01/18 15:38 Resp 24 08/01/18 15:38 BP 165/80 H 08/01/18 15:38 Pulse Ox 97 08/01/18 15:38 Constitutional: + ill appearing; no acute distress and + not appropriately hydrated Eyes: PERRL, conjunctivae normal, anicteric sclerae Neck: + abnormal visual inspection (tracheostomy in place with secretions) Respiratory: normal respiratory effort and + cough Auscultation: + diminished lung sounds (bases bilaterally) and + rhonchi (very coarse bilaterally) Cardiovascular: Rate/Rhythm: regular rate and regular rhythm Heart Sounds: normal S1 and normal S2; no murmur Extremities: + edema Gastrointestinal (Abdomen): normal bowel sounds, soft, nontender, no hepatosplenomegaly Musculoskeletal: Head/Neck/Chest: normocephalic and head atraumatic Extremities: + abnormal strength (generalized weakness) Neurologic: patellar DTR's 2+ bilat, sensation intact Psychiatric: Orientation: oriented x 3 Mood: + depressed mood Lymphatic: no cervical or axillary lymphadenopathy Results & Data Laboratory Results Laboratory Results - last 24 hr 08/01/18 08/01/18 08/01/18 05:37 06:58 20:24 Sodium 144 Potassium 4.1 Chloride 115 H Carbon Dioxide 21 Anion Gap 8.0 BUN 12 Creatinine 1.06 Est Cr Clr Drug Dosing 39.8 Est GFR ( Amer) 57.0 Est GFR (Non-Af Amer) 49.2 BUN/Creatinine Ratio 11.4 Glucose 73 POC Glucose 83 100 H Calcium 7.2 L Phosphorus 3.2 Albumin 1.5 L Medications Administered Current Inpatient Medications Acetaminophen (Tylenol) 650 mg PO BID PRN PRN Reason: Pain Stop: 08/23/18 01:26 Last Admin: 07/29/18 05:32 Dose: 650 mg Albuterol (Duoneb) 3 ml NEB Q4R PRN PRN Reason: Wheezing Stop: 08/24/18 19:49 Last Admin: 07/29/18 18:58 Dose: 3 ml Amiodarone HCl (Cordarone) 200 mg PO DAILY [facility] Stop: 08/23/18 08:59 Last Admin: 08/01/18 08:29 Dose: 200 mg Apixaban (Eliquis) 5 mg PO BID [facility] Stop: 08/29/18 20:59 Last Admin: 08/01/18 21:19 Dose: 5 mg Artificial Tears (Artificial Tears) 1 drops OP Q6H PRN PRN Reason: DRY EYES Stop: 08/23/18 01:26 Calcitriol (Racaltrol) 0.25 mcg PO DAILY [facility] Stop: 08/23/18 08:59 Last Admin: 07/27/18 08:17 Dose: 0.25 mcg Calcium Carbonate (Tums) 1,500 mg PO TIDM [facility] Stop: 08/28/18 11:59 Last Admin: 08/01/18 16:43 Dose: 1,500 mg Citalopram Hydrobromide (Celexa) 20 mg PO DAILY [facility] Stop: 08/26/18 08:59 Last Admin: 08/01/18 08:30 Dose: 20 mg Diclofenac Sodium (Voltaren 1% Top) 1 appln EXT QID [facility] Stop: 08/23/18 08:59 Last Admin: 08/01/18 21:32 Dose: 1 appln Docusate Sodium (Colace) 100 mg PO BID PRN PRN Reason: Constipation Stop: 08/23/18 01:26 Enteral Nutritional Formula (Peptamen 1.5) 1 ml PO DAILY PRN; Protocol PRN Reason: Undecided Stop: 08/26/18 09:48 Last Admin: 08/01/18 18:08 Dose: 1,000 ml Gabapentin (Neurontin) 100 mg PO QPM [facility] Stop: 08/25/18 20:59 Last Admin: 08/01/18 21:19 Dose: 100 mg Guaifenesin (Mucinex) 1,200 mg PO Q12H PRN PRN Reason: Congestion Stop: 08/23/18 01:26 Heparin Sodium (Beef Lung) (Heparin Sod 10 Unit/Ml Flush) 5 ml FLUSH PRN PRN PRN Reason: Flush Stop: 08/26/18 23:32 Last Admin: 08/01/18 20:24 Dose: 5 ml Pantoprazole Sodium 40 mg/ (Syringe) 10 mls @ 5 mls/min IV DAILY@1100 [facility] Stop: 08/26/18 10:59 Last Admin: 08/01/18 12:13 Dose: 5 mls/min Metronidazole (Flagyl) 500 mg in 100 mls @ 100 mls/hr IV Q8H [facility]; Protocol Stop: 08/11/18 17:29 Last Infusion: 08/01/18 19:13 Dose: Infused Ciprofloxacin (Cipro) 400 mg in 200 mls @ 100 mls/hr IV Q12H [facility] Stop: 08/11/18 17:29 Last Infusion: 08/01/18 20:24 Dose: Infused Levothyroxine Sodium (Synthroid) 100 mcg PO DAILYBB [facility] Stop: 08/23/18 06:29 Last Admin: 08/01/18 05:40 Dose: 100 mcg Lorazepam (Ativan) 0.5 mg PO Q6H PRN PRN Reason: anxiety/sob Stop: 08/23/18 01:26 Last Admin: 07/30/18 05:04 Dose: 0.5 mg Magnesium Oxide (Mag-Ox) 400 mg PO BID [facility] Stop: 08/29/18 08:59 Last Admin: 08/01/18 21:19 Dose: 400 mg Miconazole Nitrate (Desenex) 1 appln EXT DAILY PRN; Protocol PRN Reason: TO SKIN FOLDS Stop: 08/23/18 15:44 Midodrine (Proamatine) 2.5 mg PO TIDM [facility] Stop: 08/23/18 07:59 Last Admin: 08/01/18 16:42 Dose: 2.5 mg Morphine Sulfate (Roxanol) 5 mg PO Q4H PRN PRN Reason: Pain Stop: 08/12/18 07:59 Last Admin: 08/01/18 17:02 Dose: 5 mg Nystatin (Mycostatin) 5 ml PO QID [facility] Stop: 08/23/18 08:59 Last Admin: 08/01/18 21:18 Dose: 5 ml Polyethylene Glycol (Miralax Powder Packet) 1 gm PO DAILY PRN PRN Reason: constipation Stop: 08/23/18 01:26 Ropinirole HCl (Requip) 0.5 mg PO HS [facility] Stop: 08/23/18 20:59 Last Admin: 07/24/18 22:31 Dose: 0.5 mg Sennosides (Senokot) 8.6 mg PO BID PRN PRN Reason: Constipation Stop: 08/23/18 01:26 Sodium Bicarbonate (Sodium Bicarbonate) 650 mg PO BID [facility] Stop: 08/27/18 09:59 Last Admin: 08/01/18 21:19 Dose: 650 mg Sucralfate (Carafate) 1 gm PO QID [facility] Stop: 08/23/18 08:59 Last Admin: 08/01/18 21:18 Dose: 1 gm Thiamine HCl (Vitamin B-1) 100 mg PO QAM [facility] Stop: 08/26/18 08:59 Last Admin: 08/01/18 08:30 Dose: 100 mg Vitamin D (Vitamin D3) 2,000 units PO DAILY [facility] Stop: 08/26/18 08:59 Last Admin: 08/01/18 08:30 Dose: 2,000 units _ (1) Atrial fibrillation Atrial fibrillation type: chronic Qualified Code(s): I48.2 - Chronic atrial fibrillation (2) Depression Active/Remission status: currently active Depression Type: major depressive disorder Major depression episode severity: moderate Major depression recurrence: unspecified whether recurrent Psychotic features: Trimester: Qualified Code(s): F32.1 - Major depressive disorder, single episode, moderate (3) Hypothyroidism Hypothyroidism type: acquired Qualified Code(s): E03.9 - Hypothyroidism, unspecified (4) GERD (gastroesophageal reflux disease) Esophagitis presence: without esophagitis Qualified Code(s): K21.9 - Gastro- esophageal reflux disease without esophagitis
[2018-08-02] MEDS: metroNIDAZOLE 500 MG/100 ML BAG IV SCH ×3 (02:07→17:21)
[2018-08-02 05:45] LABS: Hematocrit (blood only) 26.4 % (37-47); Hemoglobin 8.5 g/dL (12.0-16.0)
[2018-08-02 06:11] LABS: Albumin Level 1.5 gm/dl (3.4-5.0); BUN Creatinine Ratio 9.3 (10-20); Calcium 7.4 mg/dl (8.5-10.1); Est GFR (African American) 52.2; Est GFR (Non-African American) 45.1
[2018-08-02 06:16] LABS: Ferritin 271.9 ng/ml (8-388); Phosphorus 2.9 mg/dl (2.5-4.9)
[2018-08-02] MEDS: CIPROFLOXACIN 400 MG/200 ML BAG IV SCH ×2 (06:34→18:31)
[2018-08-02] MEDS: LEVOTHYROXINE SODIUM 100 MCG TABLET PO SCH (06:37)
[2018-08-02] MEDS: CALCIUM CARBONATE 500 MG CHEWABLE TAB PO SCH ×3 (07:52→17:08)
[2018-08-02] MEDS: MIDODRINE HCL 2.5 MG TAB PO SCH ×4 (07:52→17:12)
[2018-08-02] MEDS: CITALOPRAM 20 MG TAB PO SCH (07:53)
[2018-08-02] MEDS: SUCRALFATE 1 GM/10 ML UDC PO SCH ×4 (07:53→20:28)
[2018-08-02] MEDS: APIXABAN 5 MG TABLET PO SCH ×2 (07:54→21:23)
[2018-08-02] MEDS: MAGNESIUM OXIDE 400 MG TAB PO SCH ×2 (07:54→20:28)
[2018-08-02] MEDS: AMIODARONE 200 MG TAB PO SCH (07:54)
[2018-08-02] MEDS: THIAMINE HCL 100 MG TAB PO SCH (07:55)
[2018-08-02] MEDS: CHOLECALCIFEROL 1,000 UNITS TAB PO SCH (07:55)
[2018-08-02] MEDS: NYSTATIN SUSP 500,000 U/5 ML UDC PO SCH ×4 (07:56→20:28)
[2018-08-02] MEDS: SODIUM BICARBONATE 650 MG TAB PO SCH ×2 (07:56→20:28)
[2018-08-02] MEDS: DICLOFENAC SOD 1% GEL 100 GM TUBE EXT SCH ×4 (07:57→20:28)
[2018-08-02] MEDS: MoRPHine SULFATE 5 MG/0.25 ML UDP PO PRN (08:22)
[2018-08-02] MEDS: PANTOprazole 40 MG in SYRINGE 0 ML IV SCH (10:35)
--- NOTE | 2018-08-02 11:04 | Pulmonology Progress Note ---
Date of Service August 02, 2018 Assessment & Plan (1) Acute and chronic respiratory failure with hypoxia: Continue trach collar; discuss goals with family. Grim overall prognosis. Monitor respiratory status closely; low threshold for transfer back to ICU. Pulmonary toilet. Supervising Physician Co-Signing Physician Notes Impression: 83 y.o. 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 Complex history reviewed with difficult clinical condition, worsening overall prognosis with unintentional weight loss over months and family situation with continually changing goals of care and code status noted. Greatly appreciate palliative care involvement given her condition. Looks much better this week actually. Tolerating tube feeding again but started on Cipro/Flagy yesterday due to cholecystitis. Daughter asking about transfusions for iron-deficiency anemia. Recommendations: - agree with palliative care evaluation but situation is difficult - unclear etiology for antibiotics; would try to keep off antibiotics unless septic - continue Eliquis bid - can talk to nutrition about supplements including iron, vitamin C, zinc and probiotics - grim overall prognosis - need to discuss PEG with daughter - start placement Will sign off. Please feel free to call with any questions or concerns. If patient worsens would have low threshold for pulmonary intervention and transfer back to the ICU. Subjective The patient was being cleaned by nursing staff. She was in no distress and denied pain other than the discomfort of being rolled. Tube feedings resumed last night and now at goal. Physical Exam 2 Vital Signs (Past 24 Hours): Last Vital Signs Temp 36.7 C 08/01/18 23:00 Pulse 73 08/02/18 07:37 Resp 16 08/02/18 07:37 BP 149/83 H 08/02/18 07:37 Pulse Ox 100 08/02/18 07:37 Gen: lying in bed, morbidly obese, chronically ill-appearing HEENT: PERRLAB, moist mucus membranes, tracheostomy in place C/D/I; trach collar in place; NG tube in place Neck: trach collar in place; left IJ central line Pulm: coarse BS bilaterally CV: RRR Abd: obese Ext: 2+ pitting edema noted; ecchymoses around body Skin: poor turgor; rectal tube in place; ecchymoses and bruising around body Psych: responsive to simple questions Neuro: bed-bound; minimal movement Results & Data Laboratory Results Laboratory Results - last 72 hr 07/30/18 07/31/18 07/31/18 11:38 00:52 06:05 Hgb Hct Sodium 144 Potassium 4.1 D Chloride 115 H Carbon Dioxide 19 L Anion Gap 10.0 BUN 13 Creatinine 1.17 Est Cr Clr Drug Dosing 36.1 Est GFR ( Amer) 50.6 Est GFR (Non-Af Amer) 43.7 BUN/Creatinine Ratio 10.9 Glucose 117 H POC Glucose 169 H 149 H Calcium 7.1 L Phosphorus 3.3 Ferritin Albumin 1.6 L 07/31/18 08/01/18 08/01/18 12:10 05:37 06:58 Hgb Hct Sodium 144 Potassium 4.1 Chloride 115 H Carbon Dioxide 21 Anion Gap 8.0 BUN 12 Creatinine 1.06 Est Cr Clr Drug Dosing 39.8 Est GFR ( Amer) 57.0 Est GFR (Non-Af Amer) 49.2 BUN/Creatinine Ratio 11.4 Glucose 73 POC Glucose 110 H 83 Calcium 7.2 L Phosphorus 3.2 Ferritin Albumin 1.5 L 08/01/18 08/02/18 08/02/18 20:24 00:33 05:18 Hgb 8.5 L Hct 26.4 L Sodium Potassium Chloride Carbon Dioxide Anion Gap BUN Creatinine Est Cr Clr Drug Dosing Est GFR ( Amer) Est GFR (Non-Af Amer) BUN/Creatinine Ratio Glucose POC Glucose 100 H 106 H Calcium Phosphorus Ferritin Albumin 08/02/18 08/02/18 08/02/18 05:18 06:29 06:30 Hgb Hct Sodium 143 Potassium 4.0 Chloride 115 H Carbon Dioxide 22 Anion Gap 6.0 BUN 11 Creatinine 1.14 Est Cr Clr Drug Dosing 37.0 Est GFR ( Amer) 52.2 Est GFR (Non-Af Amer) 45.1 BUN/Creatinine Ratio 9.3 L Glucose 131 H POC Glucose 170 H 178 H Calcium 7.4 L Phosphorus 2.9 Ferritin 271.9 Albumin 1.5 L Medications Administered Current Inpatient Medications Acetaminophen (Tylenol) 650 mg PO BID PRN PRN Reason: Pain Stop: 08/23/18 01:26 Last Admin: 07/29/18 05:32 Dose: 650 mg Albuterol (Duoneb) 3 ml NEB Q4R PRN PRN Reason: Wheezing Stop: 08/24/18 19:49 Last Admin: 07/29/18 18:58 Dose: 3 ml Amiodarone HCl (Cordarone) 200 mg PO DAILY [facility] Stop: 08/23/18 08:59 Last Admin: 08/02/18 07:54 Dose: 200 mg Apixaban (Eliquis) 5 mg PO BID [facility] Stop: 08/29/18 20:59 Last Admin: 08/02/18 07:54 Dose: 5 mg Artificial Tears (Artificial Tears) 1 drops OP Q6H PRN PRN Reason: DRY EYES Stop: 08/23/18 01:26 Calcitriol (Racaltrol) 0.25 mcg PO DAILY [facility] Stop: 08/23/18 08:59 Last Admin: 07/27/18 08:17 Dose: 0.25 mcg Calcium Carbonate (Tums) 1,500 mg PO TIDM [facility] Stop: 08/28/18 11:59 Last Admin: 08/02/18 07:52 Dose: 1,500 mg Citalopram Hydrobromide (Celexa) 20 mg PO DAILY [facility] Stop: 08/26/18 08:59 Last Admin: 08/02/18 07:53 Dose: 20 mg Diclofenac Sodium (Voltaren 1% Top) 1 appln EXT QID [facility] Stop: 08/23/18 08:59 Last Admin: 08/02/18 07:57 Dose: Not Given Docusate Sodium (Colace) 100 mg PO BID PRN PRN Reason: Constipation Stop: 08/23/18 01:26 Enteral Nutritional Formula (Peptamen 1.5) 1 ml PO DAILY PRN; Protocol PRN Reason: Undecided Stop: 08/26/18 09:48 Last Admin: 08/01/18 18:08 Dose: 1,000 ml Gabapentin (Neurontin) 100 mg PO QPM [facility] Stop: 08/25/18 20:59 Last Admin: 08/01/18 21:19 Dose: 100 mg Guaifenesin (Mucinex) 1,200 mg PO Q12H PRN PRN Reason: Congestion Stop: 08/23/18 01:26 Heparin Sodium (Beef Lung) (Heparin Sod 10 Unit/Ml Flush) 5 ml FLUSH PRN PRN PRN Reason: Flush Stop: 08/26/18 23:32 Last Admin: 08/02/18 10:40 Dose: 5 ml Pantoprazole Sodium 40 mg/ (Syringe) 10 mls @ 5 mls/min IV DAILY@1100 [facility] Stop: 08/26/18 10:59 Last Admin: 08/02/18 10:35 Dose: 5 mls/min Metronidazole (Flagyl) 500 mg in 100 mls @ 100 mls/hr IV Q8H [facility]; Protocol Stop: 08/11/18 17:29 Last Admin: 08/02/18 10:41 Dose: 100 mls/hr Ciprofloxacin (Cipro) 400 mg in 200 mls @ 100 mls/hr IV Q12H [facility] Stop: 08/11/18 17:29 Last Infusion: 08/02/18 08:42 Dose: Infused Levothyroxine Sodium (Synthroid) 100 mcg PO DAILYBB [facility] Stop: 08/23/18 06:29 Last Admin: 08/02/18 06:37 Dose: 100 mcg Lorazepam (Ativan) 0.5 mg PO Q6H PRN PRN Reason: anxiety/sob Stop: 08/23/18 01:26 Last Admin: 07/30/18 05:04 Dose: 0.5 mg Magnesium Oxide (Mag-Ox) 400 mg PO BID [facility] Stop: 08/29/18 08:59 Last Admin: 08/02/18 07:54 Dose: 400 mg Miconazole Nitrate (Desenex) 1 appln EXT DAILY [facility]; Protocol PRN Reason: TO SKIN FOLDS Stop: 08/23/18 15:44 Midodrine (Proamatine) 2.5 mg PO TIDM [facility] Stop: 08/23/18 07:59 Last Admin: 08/02/18 07:52 Dose: Not Given Morphine Sulfate (Roxanol) 5 mg PO Q4H PRN PRN Reason: Pain Stop: 08/12/18 07:59 Last Admin: 08/02/18 08:22 Dose: 5 mg Nystatin (Mycostatin) 5 ml PO QID [facility] Stop: 08/23/18 08:59 Last Admin: 08/02/18 07:56 Dose: 5 ml Polyethylene Glycol (Miralax Powder Packet) 1 gm PO DAILY PRN PRN Reason: constipation Stop: 08/23/18 01:26 Ropinirole HCl (Requip) 0.5 mg PO HS [facility] Stop: 08/23/18 20:59 Last Admin: 07/24/18 22:31 Dose: 0.5 mg Sennosides (Senokot) 8.6 mg PO BID PRN PRN Reason: Constipation Stop: 08/23/18 01:26 Sodium Bicarbonate (Sodium Bicarbonate) 650 mg PO BID [facility] Stop: 08/27/18 09:59 Last Admin: 08/02/18 07:56 Dose: 650 mg Sucralfate (Carafate) 1 gm PO QID [facility] Stop: 08/23/18 08:59 Last Admin: 08/02/18 07:53 Dose: 1 gm Thiamine HCl (Vitamin B-1) 100 mg PO QAM [facility] Stop: 08/26/18 08:59 Last Admin: 08/02/18 07:55 Dose: 100 mg Vitamin D (Vitamin D3) 2,000 units PO DAILY [facility] Stop: 08/26/18 08:59 Last Admin: 08/02/18 07:55 Dose: 2,000 units
--- NOTE | 2018-08-02 19:24 | Hospitalist Progress Note ---
Date of Service August 02, 2018 Assessment & Plan (1) Chronic cholecystitis: US with evidence of small stones and sludge but equivocal for infection HIDA showed no evidence of cystic duct obstruction thus ruling out acute cholecystitis however, there was delayed filling of gall bladder and EF was noted to be 5% diagnosis would be chronic cholecystitis vs dykinesis d/w daughter, cannot perform surgery will try a course of Cipro/Flagyl to see if appetite improves not really a candidate for percutaneous drain either tolerating tube feeds for now but will monitor for residuals (2) Hemoptysis: further hemoptysis today from tracheostomy likely from irritation, only one episode (3) Acute and chronic respiratory failure with hypoxia: no evidence of pneumonia at this time hypoxia due to chronic lung disease, tracheostomy on 6-8L flow by (4) Candidal urinary tract infection: was on caspofungin. now discontinued (5) MANJULA (acute kidney injury): patient was dehydrated on admission Cr tamera to 3-4 but now back to baseline at 1 with IV fluids continue to monitor (6) Hypernatremia: resolved (7) Atrial fibrillation: rate controlled continue Amiodarone (8) Hypothyroidism: Stable. Chronic * Continue Synthroid (9) Chronic diastolic CHF (congestive heart failure): euvolemic, continue to monitor volume status (10) Chronic kidney disease, stage III (moderate): As above (11) Depression: continue Celexa (12) Orthostatic hypotension: Continue Midodrine (13) GERD (gastroesophageal reflux disease): Conitnue Sucralfate (14) Hypotension: improved. Back on midodrine (15) Sepsis: treated for pneumonia and now will treat cholecystitis no current evidence of sepsis (16) Peripheral edema: Ecchymosis noted on left arm. No clots or arterial deficiencies noted on u/s (17) Hypokalemia: replacing daily (18) Severe protein-calorie malnutrition: had to stop tube feeds due to elevated residuals cannot tolerate Reglan due to allergy (19) Anemia: 8.5 today, was 9.5 yesterday no signs of significant bleeding, just mild hemoptysis will repeat H/H tomorrow will discuss hospice/comfort care again tomorrow with daughter and patient prognosis is poor, patient is slowly dying, cannot swallow, cannot maintain hydration or nutrition and she never wanted feeding tube Subjective patient more alert today, answering questions by shaking head or nodding head asked patient if she would want to remain on tube feeds, she shook head no explained that if she wanted to stop treatment and be comfortable we could do that, nodded that she understood asked patient if we could discuss with her daughter in the room, she said no tolerating tube feeds today per RN, patient had some thick secretions and some hemoptysis, requiring suctioning, weak cough no respiratory distress coughing and heavy breathing even with moistening mouth discussion with daughter Grisel outside the room discussed that patient not doing well, cannot swallow safely, more hemoptysis does not want tube feeds oil heaterman so should attempt to wean off and remove NGT soon, try to swallow explained that patient's condition will likely deteriorate and we should move towards comfort asked if we should involve other children in discussion and Grisel said not at this time asked Grisel if we could both talk to patient but she said she would talk with her mom and discuss comfort care Review of Systems All systems reviewed & are unremarkable except as noted in HPI & below Respiratory: + cough, + dyspnea, + hemoptysis and + sputum production Gastrointestinal: + diarrhea/loose stools Physical Exam 2 Vital Signs (Past 24 Hours): Last Vital Signs Temp 36.5 C 08/02/18 14:51 Pulse 93 H 08/02/18 14:51 Resp 20 08/02/18 14:51 BP 189/74 H 08/02/18 14:51 Pulse Ox 100 08/02/18 14:51 Constitutional: + ill appearing; no acute distress and + not appropriately hydrated Eyes: PERRL, conjunctivae normal, anicteric sclerae Neck: + abnormal visual inspection (tracheostomy in place with secretions) Respiratory: normal respiratory effort and + cough Auscultation: + diminished lung sounds (bases bilaterally) and + rhonchi (very coarse bilaterally) Cardiovascular: Rate/Rhythm: regular rate and regular rhythm Heart Sounds: normal S1 and normal S2; no murmur Extremities: + edema Gastrointestinal (Abdomen): normal bowel sounds, soft, nontender, no hepatosplenomegaly Musculoskeletal: Head/Neck/Chest: normocephalic and head atraumatic Extremities: + abnormal strength (generalized weakness) Neurologic: patellar DTR's 2+ bilat, sensation intact Psychiatric: Orientation: oriented x 3 Mood: + depressed mood Lymphatic: no cervical or axillary lymphadenopathy Results & Data Laboratory Results Laboratory Results - last 24 hr 11/14/18 11/15/18 11/15/18 20:24 00:33 05:18 Hgb 8.5 L Hct 26.4 L Sodium Potassium Chloride Carbon Dioxide Anion Gap BUN Creatinine Est Cr Clr Drug Dosing Est GFR ( Amer) Est GFR (Non-Af Amer) BUN/Creatinine Ratio Glucose POC Glucose 100 H 106 H Calcium Phosphorus Ferritin Albumin 08/02/18 08/02/18 08/02/18 05:18 06:29 06:30 Hgb Hct Sodium 143 Potassium 4.0 Chloride 115 H Carbon Dioxide 22 Anion Gap 6.0 BUN 11 Creatinine 1.14 Est Cr Clr Drug Dosing 37.0 Est GFR ( Amer) 52.2 Est GFR (Non-Af Amer) 45.1 BUN/Creatinine Ratio 9.3 L Glucose 131 H POC Glucose 170 H 178 H Calcium 7.4 L Phosphorus 2.9 Ferritin 271.9 Albumin 1.5 L 08/02/18 11:45 Hgb Hct Sodium Potassium Chloride Carbon Dioxide Anion Gap BUN Creatinine Est Cr Clr Drug Dosing Est GFR ( Amer) Est GFR (Non-Af Amer) BUN/Creatinine Ratio Glucose POC Glucose 180 H Calcium Phosphorus Ferritin Albumin Medications Administered Current Inpatient Medications Acetaminophen (Tylenol) 650 mg PO BID PRN PRN Reason: Pain Stop: 08/23/18 01:26 Last Admin: 07/29/18 05:32 Dose: 650 mg Albuterol (Duoneb) 3 ml NEB Q4R PRN PRN Reason: Wheezing Stop: 08/24/18 19:49 Last Admin: 07/29/18 18:58 Dose: 3 ml Amiodarone HCl (Cordarone) 200 mg PO DAILY [facility] Stop: 08/23/18 08:59 Last Admin: 08/02/18 07:54 Dose: 200 mg Apixaban (Eliquis) 5 mg PO BID [facility] Stop: 08/29/18 20:59 Last Admin: 08/02/18 07:54 Dose: 5 mg Artificial Tears (Artificial Tears) 1 drops OP Q6H PRN PRN Reason: DRY EYES Stop: 08/23/18 01:26 Calcitriol (Racaltrol) 0.25 mcg PO DAILY [facility] Stop: 08/23/18 08:59 Last Admin: 07/27/18 08:17 Dose: 0.25 mcg Calcium Carbonate (Tums) 1,500 mg PO TIDM [facility] Stop: 08/28/18 11:59 Last Admin: 08/02/18 17:08 Dose: 1,500 mg Citalopram Hydrobromide (Celexa) 20 mg PO DAILY [facility] Stop: 08/26/18 08:59 Last Admin: 08/02/18 07:53 Dose: 20 mg Diclofenac Sodium (Voltaren 1% Top) 1 appln EXT QID [facility] Stop: 08/23/18 08:59 Last Admin: 08/02/18 17:09 Dose: 1 appln Docusate Sodium (Colace) 100 mg PO BID PRN PRN Reason: Constipation Stop: 08/23/18 01:26 Enteral Nutritional Formula (Peptamen 1.5) 1 ml PO DAILY PRN; Protocol PRN Reason: Undecided Stop: 08/26/18 09:48 Last Admin: 08/01/18 18:08 Dose: 1,000 ml Gabapentin (Neurontin) 100 mg PO QPM [facility] Stop: 08/25/18 20:59 Last Admin: 08/01/18 21:19 Dose: 100 mg Guaifenesin (Mucinex) 1,200 mg PO Q12H PRN PRN Reason: Congestion Stop: 08/23/18 01:26 Heparin Sodium (Beef Lung) (Heparin Sod 10 Unit/Ml Flush) 5 ml FLUSH PRN PRN PRN Reason: Flush Stop: 08/26/18 23:32 Last Admin: 08/02/18 10:40 Dose: 5 ml Pantoprazole Sodium 40 mg/ (Syringe) 10 mls @ 5 mls/min IV DAILY@1100 [facility] Stop: 08/26/18 10:59 Last Admin: 08/02/18 10:35 Dose: 5 mls/min Metronidazole (Flagyl) 500 mg in 100 mls @ 100 mls/hr IV Q8H [facility]; Protocol Stop: 08/11/18 17:29 Last Infusion: 08/02/18 18:31 Dose: Infused Ciprofloxacin (Cipro) 400 mg in 200 mls @ 100 mls/hr IV Q12H [facility] Stop: 08/11/18 17:29 Last Admin: 08/02/18 18:31 Dose: 100 mls/hr Levothyroxine Sodium (Synthroid) 100 mcg PO DAILYBB [facility] Stop: 08/23/18 06:29 Last Admin: 08/02/18 06:37 Dose: 100 mcg Lorazepam (Ativan) 0.5 mg PO Q6H PRN PRN Reason: anxiety/sob Stop: 08/23/18 01:26 Last Admin: 07/30/18 05:04 Dose: 0.5 mg Magnesium Oxide (Mag-Ox) 400 mg PO BID [facility] Stop: 08/29/18 08:59 Last Admin: 08/02/18 07:54 Dose: 400 mg Miconazole Nitrate (Desenex) 1 appln EXT DAILY PRN; Protocol PRN Reason: TO SKIN FOLDS Stop: 08/23/18 15:44 Midodrine (Proamatine) 2.5 mg PO TIDM [facility] Stop: 08/23/18 07:59 Last Admin: 08/02/18 17:12 Dose: Not Given Morphine Sulfate (Roxanol) 5 mg PO Q4H PRN PRN Reason: Pain Stop: 08/12/18 07:59 Last Admin: 08/02/18 08:22 Dose: 5 mg Nystatin (Mycostatin) 5 ml PO QID [facility] Stop: 08/23/18 08:59 Last Admin: 08/02/18 17:08 Dose: 5 ml Polyethylene Glycol (Miralax Powder Packet) 1 gm PO DAILY PRN PRN Reason: constipation Stop: 08/23/18 01:26 Ropinirole HCl (Requip) 0.5 mg PO HS [facility] Stop: 08/23/18 20:59 Last Admin: 07/24/18 22:31 Dose: 0.5 mg Sennosides (Senokot) 8.6 mg PO BID PRN PRN Reason: Constipation Stop: 08/23/18 01:26 Sodium Bicarbonate (Sodium Bicarbonate) 650 mg PO BID [facility] Stop: 08/27/18 09:59 Last Admin: 08/02/18 07:56 Dose: 650 mg Sucralfate (Carafate) 1 gm PO QID [facility] Stop: 08/23/18 08:59 Last Admin: 08/02/18 17:07 Dose: 1 gm Thiamine HCl (Vitamin B-1) 100 mg PO QAM [facility] Stop: 08/26/18 08:59 Last Admin: 08/02/18 07:55 Dose: 100 mg Vitamin D (Vitamin D3) 2,000 units PO DAILY [facility] Stop: 08/26/18 08:59 Last Admin: 08/02/18 07:55 Dose: 2,000 units _ (1) Atrial fibrillation Atrial fibrillation type: chronic Qualified Code(s): I48.2 - Chronic atrial fibrillation (2) Hypothyroidism Hypothyroidism type: acquired Qualified Code(s): E03.9 - Hypothyroidism, unspecified (3) Depression Depression Type: major depressive disorder Major depression recurrence: unspecified whether recurrent Active/Remission status: currently active Major depression episode severity: moderate Psychotic features: Trimester: Qualified Code(s): F32.1 - Major depressive disorder, single episode, moderate (4) GERD (gastroesophageal reflux disease) Esophagitis presence: without esophagitis Qualified Code(s): K21.9 - Gastro- esophageal reflux disease without esophagitis
[2018-08-02] MEDS: GABAPENTIN 100 MG CAP PO SCH (20:28)
[2018-08-02] MEDS: PEPTAMEN 1.5 CAL 1,000 ML BAG PO PRN (21:49)
[2018-08-03] MEDS: metroNIDAZOLE 500 MG/100 ML BAG IV SCH ×3 (01:32→19:03)
[2018-08-03] MEDS: LEVOTHYROXINE SODIUM 100 MCG TABLET PO SCH (05:05)
[2018-08-03] MEDS: CIPROFLOXACIN 400 MG/200 ML BAG IV SCH ×2 (05:05→19:06)
[2018-08-03] MEDS: MoRPHine SULFATE 5 MG/0.25 ML UDP PO PRN ×3 (06:25→21:54)
[2018-08-03 06:33] LABS: Albumin Level 1.1 gm/dl (3.4-5.0); BUN Creatinine Ratio 8.5 (10-20); Calcium 6.6 mg/dl (8.5-10.1); Creatinine Clr Calc Pharmacy 37.4 ml/min; Est GFR (African American) 52.8; Est GFR (Non-African American) 45.5; Potassium 4.5 mmol/L (3.5-5.1)
[2018-08-03 06:42] LABS: Phosphorus 1.8 mg/dl (2.5-4.9)
[2018-08-03] MEDS: MAGNESIUM OXIDE 400 MG TAB PO SCH ×2 (08:42→21:46)
[2018-08-03] MEDS: CALCIUM CARBONATE 500 MG CHEWABLE TAB PO SCH ×3 (08:42→19:01)
[2018-08-03] MEDS: SUCRALFATE 1 GM/10 ML UDC PO SCH ×4 (08:43→21:46)
[2018-08-03] MEDS: THIAMINE HCL 100 MG TAB PO SCH (08:43)
[2018-08-03] MEDS: MIDODRINE HCL 2.5 MG TAB PO SCH ×3 (08:43→19:01)
[2018-08-03] MEDS: CITALOPRAM 20 MG TAB PO SCH (08:43)
[2018-08-03] MEDS: SODIUM BICARBONATE 650 MG TAB PO SCH ×2 (08:43→21:48)
[2018-08-03] MEDS: AMIODARONE 200 MG TAB PO SCH (09:44)
[2018-08-03] MEDS: CHOLECALCIFEROL 1,000 UNITS TAB PO SCH (09:44)
[2018-08-03] MEDS: DICLOFENAC SOD 1% GEL 100 GM TUBE EXT SCH ×4 (09:59→21:47)
[2018-08-03] MEDS: NYSTATIN SUSP 500,000 U/5 ML UDC PO SCH ×4 (09:59→21:47)
[2018-08-03] MEDS: APIXABAN 5 MG TABLET PO SCH ×2 (09:59→21:27)
[2018-08-03] MEDS: PANTOprazole 40 MG in SYRINGE 0 ML IV SCH (11:40)
[2018-08-03] MEDS ORDERED: SODIUM PHOSPHATE 3 MMOL/1 ML INFUSION IV STA (11:57)
[2018-08-03] MEDS ORDERED: SODIUM PHOSPHATE 24 MMOL in SODIUM CHLORIDE 0.9% 500 ML IV ONE (12:00)
[2018-08-03 13:07] LABS: Hematocrit (blood only) 25.4 % (37-47); Hemoglobin 8.1 g/dL (12.0-16.0)
[2018-08-03 13:28] LABS: Est GFR (African American) 53.9; Est GFR (Non-African American) 46.5
--- NOTE | 2018-08-03 16:08 | Hospitalist Progress Note ---
Date of Service August 03, 2018 Assessment & Plan (1) Chronic cholecystitis: US with evidence of small stones and sludge but equivocal for infection HIDA showed no evidence of cystic duct obstruction thus ruling out acute cholecystitis however, there was delayed filling of gall bladder and EF was noted to be 5% diagnosis would be chronic cholecystitis vs dykinesis d/w daughter, cannot perform surgery will try a course of Cipro/Flagyl to see if appetite improves, today is Day 3 not really a candidate for percutaneous drain either tolerating tube feeds for now but will monitor for residuals (2) Hemoptysis: further hemoptysis yesterday from tracheostomy likely from irritation, only one episode hold Eliquis (3) Acute and chronic respiratory failure with hypoxia: no evidence of pneumonia at this time hypoxia due to chronic lung disease, tracheostomy on 6-8L flow by patient is aspirating frequently, cannot eat or drink (4) Candidal urinary tract infection: was on caspofungin. now discontinued (5) MANJULA (acute kidney injury): patient was dehydrated on admission Cr tamera to 3-4 but now back to baseline at 1 with IV fluids continue to monitor requiring tube feeds to stay hydrated (6) Hypernatremia: resolved (7) Atrial fibrillation: rate controlled continue Amiodarone hold Eliquis due to hemoptysis (8) Hypothyroidism: Stable. Chronic * Continue Synthroid (9) Chronic diastolic CHF (congestive heart failure): euvolemic, continue to monitor volume status (10) Chronic kidney disease, stage III (moderate): As above (11) Depression: continue Celexa (12) Orthostatic hypotension: holding Midodrine since BP normal and even elevated at times (13) GERD (gastroesophageal reflux disease): Conitnue Sucralfate (14) Sepsis: treated for pneumonia and now will treat cholecystitis no current evidence of sepsis (15) Peripheral edema: diffuse ecchymosis and edema due to protein level of 1.1, no oncotic pressure cannot improve albumin level even on tube feeds discussed with patient and her daughter that this will not improve (16) Hypokalemia: replacing daily (17) Severe protein-calorie malnutrition: had to stop tube feeds due to elevated residuals cannot tolerate Reglan due to allergy (18) Anemia: 8.1 today, down from 8.5 no signs of significant bleeding, just mild hemoptysis will repeat H/H tomorrow (19) Hypophosphatemia: replaced with sodium phosphate IV today both patient and her daughter aware of very, very poor prognosis, patient is slowly dying discussed at length today that we can stop tube feeds and make patient comfortable patient is in discomfort when it comes to tracheostomy with suctioning, cannot generate a cough patient has edema, skin breaking down cannot reverse her severe protein malnutrition constant diarrhea with tube feeds, not really absorbing nutrients Hb getting worse but should not transfuse as it would not change overall picture asked patient to think about her wishes tonight and we will address tomorrow with daughter Subjective patient uncomfortable today tolerating tube feeds but constant liquid stools in rectal tube labs show that albumin down to 1.1 Hb down to 8.1 phosphorus low at 2.8 discussed with patient that tube feeds not working, not absorbing nutrients, low albumin at the point where things cannot be reversed asked patient if she felt she had any quality of life, shook her head no asked her if she wanted to stop tube feeds, she said no talked with patient's daughter Grisel, she says that her mom wants to continue the tube feeds for now explained that clinically patient getting worse skin breaking down, edematous, constant suctioning, not tolerating tube feeds Grisel understands that patient getting worse and need to consider palliative care she wants patient to make the decision I told patient to think about what she wants and we will discuss again tomorrow Respiratory: + cough, + dyspnea, + hemoptysis and + sputum production Gastrointestinal: + diarrhea/loose stools Physical Exam 2 Vital Signs (Past 24 Hours): Last Vital Signs Temp 37.1 C 08/03/18 13:42 Pulse 85 08/03/18 13:42 Resp 22 08/03/18 13:42 BP 113/70 08/03/18 13:42 Pulse Ox 100 08/03/18 13:42 Constitutional: + ill appearing; no acute distress and + not appropriately hydrated Eyes: PERRL, conjunctivae normal, anicteric sclerae Neck: + abnormal visual inspection (tracheostomy in place with secretions) Respiratory: normal respiratory effort and + cough Auscultation: + diminished lung sounds (bases bilaterally) and + rhonchi (very coarse bilaterally) Cardiovascular: Rate/Rhythm: regular rate and regular rhythm Heart Sounds: normal S1 and normal S2; no murmur Extremities: + edema Gastrointestinal (Abdomen): normal bowel sounds, soft, nontender, no hepatosplenomegaly Musculoskeletal: Head/Neck/Chest: normocephalic and head atraumatic Extremities: + abnormal strength (generalized weakness) Skin: + erythema (bilateral arms and legs) edema diffusely, thinning skin, hematomas in skin behind knees Neurologic: patellar DTR's 2+ bilat, sensation intact Psychiatric: Orientation: oriented x 3 Mood: + depressed mood Lymphatic: no cervical or axillary lymphadenopathy Results & Data Laboratory Results Laboratory Results - last 24 hr 08/03/18 08/03/18 08/03/18 06:04 06:07 11:27 Hgb Hct Sodium 140 Potassium 4.5 Chloride 113 H Carbon Dioxide 19 L Anion Gap 8.0 BUN 10 Creatinine 1.13 Est Cr Clr Drug Dosing 37.4 Est GFR ( Amer) 52.8 Est GFR (Non-Af Amer) 45.5 BUN/Creatinine Ratio 8.5 L Glucose 171 H POC Glucose 206 H 170 H Calcium 6.6 L Phosphorus 1.8 L D Albumin 1.1 L 08/03/18 08/03/18 12:53 12:53 Hgb 8.1 L Hct 25.4 L Sodium 137 Potassium 4.0 Chloride 109 H Carbon Dioxide 22 Anion Gap 6.0 BUN 10 Creatinine 1.11 Est Cr Clr Drug Dosing 38.0 Est GFR ( Amer) 53.9 Est GFR (Non-Af Amer) 46.5 BUN/Creatinine Ratio 9.0 L Glucose 142 H POC Glucose Calcium 7.0 L Phosphorus Albumin Medications Administered Current Inpatient Medications Acetaminophen (Tylenol) 650 mg PO BID PRN PRN Reason: Pain Stop: 08/23/18 01:26 Last Admin: 07/29/18 05:32 Dose: 650 mg Albuterol (Duoneb) 3 ml NEB Q4R PRN PRN Reason: Wheezing Stop: 08/24/18 19:49 Last Admin: 07/29/18 18:58 Dose: 3 ml Amiodarone HCl (Cordarone) 200 mg PO DAILY [facility] Stop: 08/23/18 08:59 Last Admin: 08/03/18 09:44 Dose: 200 mg Apixaban (Eliquis) 5 mg PO BID [facility] Stop: 08/29/18 20:59 Last Admin: 08/03/18 09:59 Dose: Not Given Artificial Tears (Artificial Tears) 1 drops OP Q6H PRN PRN Reason: DRY EYES Stop: 08/23/18 01:26 Calcitriol (Racaltrol) 0.25 mcg PO DAILY [facility] Stop: 08/23/18 08:59 Last Admin: 07/27/18 08:17 Dose: 0.25 mcg Calcium Carbonate (Tums) 1,500 mg PO TIDM [facility] Stop: 08/28/18 11:59 Last Admin: 08/03/18 11:40 Dose: 1,500 mg Citalopram Hydrobromide (Celexa) 20 mg PO DAILY [facility] Stop: 08/26/18 08:59 Last Admin: 08/03/18 08:43 Dose: 20 mg Diclofenac Sodium (Voltaren 1% Top) 1 appln EXT QID [facility] Stop: 08/23/18 08:59 Last Admin: 08/03/18 11:55 Dose: Not Given Docusate Sodium (Colace) 100 mg PO BID PRN PRN Reason: Constipation Stop: 08/23/18 01:26 Enteral Nutritional Formula (Peptamen 1.5) 1 ml PO DAILY PRN; Protocol PRN Reason: Undecided Stop: 08/26/18 09:48 Last Admin: 08/02/18 21:49 Dose: 1 ml Gabapentin (Neurontin) 100 mg PO QPM [facility] Stop: 08/25/18 20:59 Last Admin: 08/02/18 20:28 Dose: 100 mg Guaifenesin (Mucinex) 1,200 mg PO Q12H PRN PRN Reason: Congestion Stop: 08/23/18 01:26 Heparin Sodium (Beef Lung) (Heparin Sod 10 Unit/Ml Flush) 5 ml FLUSH PRN PRN PRN Reason: Flush Stop: 08/26/18 23:32 Last Admin: 08/02/18 20:44 Dose: 5 ml Pantoprazole Sodium 40 mg/ (Syringe) 10 mls @ 5 mls/min IV DAILY@1100 [facility] Stop: 08/26/18 10:59 Last Admin: 08/03/18 11:40 Dose: 5 mls/min Metronidazole (Flagyl) 500 mg in 100 mls @ 100 mls/hr IV Q8H [facility]; Protocol Stop: 08/11/18 17:29 Last Infusion: 08/03/18 09:42 Dose: Infused Ciprofloxacin (Cipro) 400 mg in 200 mls @ 100 mls/hr IV Q12H [facility] Stop: 08/11/18 17:29 Last Infusion: 08/03/18 07:05 Dose: Infused Sodium Phosphate 24 mmol/ (Sodium Chloride) 508 mls @ 88 mls/hr IV ONE ONE Stop: 08/03/18 17:46 Last Admin: 08/03/18 12:41 Dose: 88 mls/hr Levothyroxine Sodium (Synthroid) 100 mcg PO DAILYBB [facility] Stop: 08/23/18 06:29 Last Admin: 08/03/18 05:05 Dose: Not Given Lorazepam (Ativan) 0.5 mg PO Q6H PRN PRN Reason: anxiety/sob Stop: 08/23/18 01:26 Last Admin: 07/30/18 05:04 Dose: 0.5 mg Magnesium Oxide (Mag-Ox) 400 mg PO BID [facility] Stop: 08/29/18 08:59 Last Admin: 08/03/18 08:42 Dose: 400 mg Miconazole Nitrate (Desenex) 1 appln EXT DAILY PRN; Protocol PRN Reason: TO SKIN FOLDS Stop: 08/23/18 15:44 Midodrine (Proamatine) 2.5 mg PO TIDM [facility] Stop: 08/23/18 07:59 Last Admin: 08/03/18 11:40 Dose: Not Given Morphine Sulfate (Roxanol) 5 mg PO Q4H PRN PRN Reason: Pain Stop: 08/12/18 07:59 Last Admin: 08/03/18 11:54 Dose: 5 mg Nystatin (Mycostatin) 5 ml PO QID [facility] Stop: 08/23/18 08:59 Last Admin: 08/03/18 11:55 Dose: Not Given Polyethylene Glycol (Miralax Powder Packet) 1 gm PO DAILY PRN PRN Reason: constipation Stop: 08/23/18 01:26 Ropinirole HCl (Requip) 0.5 mg PO HS [facility] Stop: 08/23/18 20:59 Last Admin: 07/24/18 22:31 Dose: 0.5 mg Sennosides (Senokot) 8.6 mg PO BID PRN PRN Reason: Constipation Stop: 08/23/18 01:26 Sodium Bicarbonate (Sodium Bicarbonate) 650 mg PO BID [facility] Stop: 08/27/18 09:59 Last Admin: 08/03/18 08:43 Dose: 650 mg Sucralfate (Carafate) 1 gm PO QID [facility] Stop: 08/23/18 08:59 Last Admin: 08/03/18 11:40 Dose: 1 gm Thiamine HCl (Vitamin B-1) 100 mg PO QAM [facility] Stop: 08/26/18 08:59 Last Admin: 08/03/18 08:43 Dose: 100 mg Vitamin D (Vitamin D3) 2,000 units PO DAILY [facility] Stop: 08/26/18 08:59 Last Admin: 08/03/18 09:44 Dose: 2,000 units _ (1) Atrial fibrillation Atrial fibrillation type: chronic Qualified Code(s): I48.2 - Chronic atrial fibrillation (2) Depression Active/Remission status: currently active Depression Type: major depressive disorder Major depression episode severity: moderate Major depression recurrence: unspecified whether recurrent Psychotic features: Trimester: Qualified Code(s): F32.1 - Major depressive disorder, single episode, moderate (3) Hypothyroidism Hypothyroidism type: acquired Qualified Code(s): E03.9 - Hypothyroidism, unspecified (4) GERD (gastroesophageal reflux disease) Esophagitis presence: without esophagitis Qualified Code(s): K21.9 - Gastro- esophageal reflux disease without esophagitis
[2018-08-03] MEDS: PEPTAMEN 1.5 CAL 1,000 ML BAG PO PRN (21:24)
[2018-08-03] MEDS: GABAPENTIN 100 MG CAP PO SCH (21:46)
[2018-08-04] MEDS ORDERED: MoRPHine SULFATE 5 MG/0.25 ML UDP NG STA (00:37)
[2018-08-04] MEDS: metroNIDAZOLE 500 MG/100 ML BAG IV SCH ×4 (01:47→17:26)
[2018-08-04] MEDS: CIPROFLOXACIN 400 MG/200 ML BAG IV SCH ×2 (05:06→17:26)
[2018-08-04] MEDS: LEVOTHYROXINE SODIUM 100 MCG TABLET PO SCH (05:10)
[2018-08-04 06:04] LABS: Albumin Level 1.5 gm/dl (3.4-5.0); BUN Creatinine Ratio 9.3 (10-20); Creatinine Clr Calc Pharmacy 37.7 ml/min; Est GFR (African American) 53.4; Potassium 3.7 mmol/L (3.5-5.1)
[2018-08-04 06:10] LABS: Phosphorus 2.8 mg/dl (2.5-4.9)
--- NOTE | 2018-08-04 07:57 | XRay Report ---
XR chest 1V portable CLINICAL HISTORY: Shortness of breath. COMPARISON STUDY: Chest radiograph July 27, 2018. FINDINGS: Tracheostomy tube, right PICC, nasogastric tube, bilateral shoulder arthroplasties and thor acolumbar spine fusion hardware is again noted. Cardiomegaly is unchanged. There is no pneumothorax. Small to moderate right and small left pleural effusions persist. There are associated bibasilar opac ities, greater on the right. There is no evidence for overt pulmonary edema. The appearance of the ch est is unchanged. IMPRESSION: 1. No significant change in bilateral pleural effusions with bibasilar opacities which may reflect at electasis or consolidation. 2. Cardiomegaly without overt edema. 3. No pneumothorax. Electronically signed by: Jake Lo M.D. 08/04/2018 7:56 AM
[2018-08-04] MEDS: MIDODRINE HCL 2.5 MG TAB PO SCH ×2 (09:04→11:22)
[2018-08-04] MEDS: MAGNESIUM OXIDE 400 MG TAB PO SCH (09:05)
[2018-08-04] MEDS: NYSTATIN SUSP 500,000 U/5 ML UDC PO SCH ×4 (09:05→21:55)
[2018-08-04] MEDS: AMIODARONE 200 MG TAB PO SCH (09:05)
[2018-08-04] MEDS: SUCRALFATE 1 GM/10 ML UDC PO SCH ×2 (09:05→12:53)
[2018-08-04] MEDS: CALCIUM CARBONATE 500 MG CHEWABLE TAB PO SCH ×2 (09:05→11:22)
[2018-08-04] MEDS: APIXABAN 5 MG TABLET PO SCH (09:05)
[2018-08-04] MEDS: CITALOPRAM 20 MG TAB PO SCH (09:05)
[2018-08-04] MEDS: SODIUM BICARBONATE 650 MG TAB PO SCH (09:06)
[2018-08-04] MEDS: DICLOFENAC SOD 1% GEL 100 GM TUBE EXT SCH ×4 (09:06→21:55)
[2018-08-04] MEDS: CHOLECALCIFEROL 1,000 UNITS TAB PO SCH (09:06)
[2018-08-04] MEDS: THIAMINE HCL 100 MG TAB PO SCH (09:06)
[2018-08-04 09:41] LABS: Hematocrit (blood only) 27.6 % (37-47); Hemoglobin 8.9 g/dL (12.0-16.0)
[2018-08-04] MEDS: PANTOprazole 40 MG in SYRINGE 0 ML IV SCH ×2 (11:21→11:24)
--- NOTE | 2018-08-04 12:50 | Hospitalist Progress Note ---
Date of Service August 04, 2018 Assessment & Plan (1) Acute and chronic respiratory failure with hypoxia: patient with thick secretions from trachea, respiratory status deteriorating patient no longer wants treatment would not want ventilation if breathing gets worse refusing all medications, even IV medications, does not want feedings via NGT will make patient comfort care Atropine, Scopolamine, Ativan and Morphine PRN stop blood draws stop other medications patient is DNR, provide comfort if she deteriorates (2) Chronic cholecystitis: US with evidence of small stones and sludge but equivocal for infection HIDA showed no evidence of cystic duct obstruction thus ruling out acute cholecystitis however, there was delayed filling of gall bladder and EF was noted to be 5% diagnosis would be chronic cholecystitis vs dykinesis d/w daughter, cannot perform surgery not really a candidate for percutaneous drain either no longer tolerating tube feeds stop Cipro/Flagyl IV (3) Hemoptysis: stop Eliquis no further bleeding (4) Candidal urinary tract infection: was on caspofungin. now discontinued (5) MANJULA (acute kidney injury): patient was dehydrated on admission Cr tamera to 3-4 but now back to baseline at 1 with IV fluids continue to monitor requiring tube feeds to stay hydrated, will stop tube feeds no further blood draws (6) Hypernatremia: resolved (7) Atrial fibrillation: rate controlled hold Amiodarone since she cannot take PO (8) Hypothyroidism: Stable. Chronic * Continue Synthroid (9) Chronic diastolic CHF (congestive heart failure): euvolemic, continue to monitor volume status (10) Chronic kidney disease, stage III (moderate): As above (11) Depression: continue Celexa (12) Orthostatic hypotension: holding Midodrine since BP normal and even elevated at times (13) GERD (gastroesophageal reflux disease): Conitnue Sucralfate (14) Sepsis: treated for pneumonia and now will treat cholecystitis no current evidence of sepsis (15) Peripheral edema: diffuse ecchymosis and edema due to protein level of 1.1, no oncotic pressure cannot improve albumin level even on tube feeds discussed with patient and her daughter that this will not improve (16) Hypokalemia: no further blood draws (17) Severe protein-calorie malnutrition: had to stop tube feeds due to elevated residuals cannot tolerate Reglan due to allergy severe diarrhea, not absorbing anything no further nutrition (18) Anemia: 8.9 today no further blood draws (19) Hypophosphatemia: no further draws Subjective patient not doing well this morning having regurgitation from tube feeds this morning, aspirating on feedings, had to stop suctioned aggressively and breathing is now stable Hb is 8.9, Phosphorus 2.8, Albumin 1.5 patient refused to allow RN to administer medications down tube, refused IV medications visited with patient, asked if she wanted us to stop treatments such as tube feeds and medications discussed that we could make her comfortable if those were her wishes she nodded yes that she wanted to stop I discussed that we would need to talk with her daughter in the room, placed phone call for daughter to come in talked with daughter Grisel and patient in the room prior to my arrival Grisel asked the patient if she wanted to continue treatment and she said no discussed plan, will pull NGT, start Scopolamine patch, Atropine PRN, Ativan PRN and Morphine PRN no plans for morphine drip yet Review of Systems All systems reviewed & are unremarkable except as noted in HPI & below Constitutional: + fatigue and + weakness Respiratory: + cough, + dyspnea, + hemoptysis and + sputum production aspirating on tube feeds Cardiovascular: + dyspnea Gastrointestinal: + dysphagia (aspirating) and + diarrhea/loose stools Integumentary: + rash, + lesions and + skin swelling (diffuse edema) Neurologic: + generalized weakness Physical Exam 2 Vital Signs (Past 24 Hours): Last Vital Signs Temp 36.9 C 08/04/18 09:07 Pulse 95 H 08/04/18 09:07 Resp 24 08/04/18 09:07 BP 91/54 L 08/04/18 09:07 Pulse Ox 94 08/04/18 09:07 Constitutional: + ill appearing; no acute distress and + not appropriately hydrated Eyes: PERRL, conjunctivae normal, anicteric sclerae Neck: + abnormal visual inspection (tracheostomy in place with secretions) Respiratory: normal respiratory effort and + cough Auscultation: + diminished lung sounds (bases bilaterally) and + rhonchi (very coarse bilaterally) Cardiovascular: Rate/Rhythm: regular rate and regular rhythm Heart Sounds: normal S1 and normal S2; no murmur Extremities: + edema Gastrointestinal (Abdomen): normal bowel sounds, soft, nontender, no hepatosplenomegaly Musculoskeletal: Head/Neck/Chest: normocephalic and head atraumatic Extremities: + abnormal strength (generalized weakness) Skin: + erythema (bilateral arms and legs) Neurologic: patellar DTR's 2+ bilat, sensation intact Psychiatric: Orientation: oriented x 3 Mood: + depressed mood Lymphatic: no cervical or axillary lymphadenopathy Results & Data Laboratory Results Laboratory Results - last 24 hr 08/03/18 08/03/18 08/03/18 12:53 12:53 18:59 Hgb 8.1 L Hct 25.4 L Sodium 137 Potassium 4.0 Chloride 109 H Carbon Dioxide 22 Anion Gap 6.0 BUN 10 Creatinine 1.11 Est Cr Clr Drug Dosing 38.0 Est GFR ( Amer) 53.9 Est GFR (Non-Af Amer) 46.5 BUN/Creatinine Ratio 9.0 L Glucose 142 H POC Glucose 156 H Calcium 7.0 L Phosphorus Albumin 08/04/18 08/04/18 08/04/18 00:08 05:15 05:21 Hgb 8.9 L Hct 27.6 L Sodium 139 Potassium 3.7 Chloride 109 H Carbon Dioxide 23 Anion Gap 7.0 BUN 10 Creatinine 1.12 Est Cr Clr Drug Dosing 37.7 Est GFR ( Amer) 53.4 Est GFR (Non-Af Amer) 46.0 BUN/Creatinine Ratio 9.3 L Glucose 110 H POC Glucose 121 H Calcium 7.0 L Phosphorus 2.8 D Albumin 1.5 L 08/04/18 06:50 Hgb Hct Sodium Potassium Chloride Carbon Dioxide Anion Gap BUN Creatinine Est Cr Clr Drug Dosing Est GFR ( Amer) Est GFR (Non-Af Amer) BUN/Creatinine Ratio Glucose POC Glucose 115 H Calcium Phosphorus Albumin Medications Administered Current Inpatient Medications Acetaminophen (Tylenol) 650 mg PO BID PRN PRN Reason: Pain Stop: 08/23/18 01:26 Last Admin: 07/29/18 05:32 Dose: 650 mg Albuterol (Duoneb) 3 ml NEB Q4R PRN PRN Reason: Wheezing Stop: 08/24/18 19:49 Last Admin: 07/29/18 18:58 Dose: 3 ml Amiodarone HCl (Cordarone) 200 mg PO DAILY [facility] Stop: 08/23/18 08:59 Last Admin: 08/04/18 09:05 Dose: Not Given Apixaban (Eliquis) 5 mg PO BID [facility] Stop: 08/29/18 20:59 Last Admin: 08/04/18 09:05 Dose: Not Given Artificial Tears (Artificial Tears) 1 drops OP Q6H PRN PRN Reason: DRY EYES Stop: 08/23/18 01:26 Calcitriol (Racaltrol) 0.25 mcg PO DAILY [facility] Stop: 08/23/18 08:59 Last Admin: 07/27/18 08:17 Dose: 0.25 mcg Calcium Carbonate (Tums) 1,500 mg PO TIDM [facility] Stop: 08/28/18 11:59 Last Admin: 08/04/18 11:22 Dose: Not Given Citalopram Hydrobromide (Celexa) 20 mg PO DAILY [facility] Stop: 08/26/18 08:59 Last Admin: 08/04/18 09:05 Dose: Not Given Diclofenac Sodium (Voltaren 1% Top) 1 appln EXT QID [facility] Stop: 08/23/18 08:59 Last Admin: 08/04/18 09:06 Dose: Not Given Docusate Sodium (Colace) 100 mg PO BID PRN PRN Reason: Constipation Stop: 08/23/18 01:26 Enteral Nutritional Formula (Peptamen 1.5) 1 ml PO DAILY PRN; Protocol PRN Reason: Undecided Stop: 08/26/18 09:48 Last Admin: 08/03/18 21:24 Dose: 1,000 ml Gabapentin (Neurontin) 100 mg PO QPM [facility] Stop: 08/25/18 20:59 Last Admin: 08/03/18 21:46 Dose: 100 mg Guaifenesin (Mucinex) 1,200 mg PO Q12H PRN PRN Reason: Congestion Stop: 08/23/18 01:26 Heparin Sodium (Beef Lung) (Heparin Sod 10 Unit/Ml Flush) 5 ml FLUSH PRN PRN PRN Reason: Flush Stop: 08/26/18 23:32 Last Admin: 08/03/18 21:30 Dose: 5 ml Pantoprazole Sodium 40 mg/ (Syringe) 10 mls @ 5 mls/min IV DAILY@1100 [facility] Stop: 08/26/18 10:59 Last Admin: 08/04/18 11:24 Dose: Not Given Metronidazole (Flagyl) 500 mg in 100 mls @ 100 mls/hr IV Q8H [facility]; Protocol Stop: 08/11/18 17:29 Last Admin: 08/04/18 11:23 Dose: Not Given Ciprofloxacin (Cipro) 400 mg in 200 mls @ 100 mls/hr IV Q12H [facility] Stop: 08/11/18 17:29 Last Infusion: 08/04/18 09:07 Dose: Infused Lorazepam (Ativan) 0.5 mg in 1 mls @ 1 mls/min IV Q6H PRN PRN Reason: Anxiety Stop: 09/03/18 00:37 Levothyroxine Sodium (Synthroid) 100 mcg PO DAILYBB [facility] Stop: 08/23/18 06:29 Last Admin: 08/04/18 05:10 Dose: 100 mcg Magnesium Oxide (Mag-Ox) 400 mg PO BID [facility] Stop: 08/29/18 08:59 Last Admin: 08/04/18 09:05 Dose: Not Given Miconazole Nitrate (Desenex) 1 appln EXT DAILY PRN; Protocol PRN Reason: TO SKIN FOLDS Stop: 08/23/18 15:44 Midodrine (Proamatine) 2.5 mg PO TIDM [facility] Stop: 08/23/18 07:59 Last Admin: 08/04/18 11:22 Dose: Not Given Morphine Sulfate (Roxanol) 5 mg PO Q4H PRN PRN Reason: Pain Stop: 08/12/18 07:59 Last Admin: 08/03/18 21:54 Dose: 5 mg Nystatin (Mycostatin) 5 ml PO QID [facility] Stop: 08/23/18 08:59 Last Admin: 08/04/18 09:05 Dose: Not Given Polyethylene Glycol (Miralax Powder Packet) 1 gm PO DAILY PRN PRN Reason: constipation Stop: 08/23/18 01:26 Ropinirole HCl (Requip) 0.5 mg PO HS [facility] Stop: 08/23/18 20:59 Last Admin: 07/24/18 22:31 Dose: 0.5 mg Sennosides (Senokot) 8.6 mg PO BID PRN PRN Reason: Constipation Stop: 08/23/18 01:26 Sodium Bicarbonate (Sodium Bicarbonate) 650 mg PO BID [facility] Stop: 08/27/18 09:59 Last Admin: 08/04/18 09:06 Dose: Not Given Sucralfate (Carafate) 1 gm PO QID [facility] Stop: 08/23/18 08:59 Last Admin: 08/04/18 09:05 Dose: Not Given Thiamine HCl (Vitamin B-1) 100 mg PO QAM [facility] Stop: 08/26/18 08:59 Last Admin: 08/04/18 09:06 Dose: Not Given Vitamin D (Vitamin D3) 2,000 units PO DAILY [facility] Stop: 08/26/18 08:59 Last Admin: 08/04/18 09:06 Dose: Not Given _ (1) Atrial fibrillation Atrial fibrillation type: chronic Qualified Code(s): I48.2 - Chronic atrial fibrillation (2) Depression Active/Remission status: currently active Depression Type: major depressive disorder Major depression episode severity: moderate Major depression recurrence: unspecified whether recurrent Psychotic features: Trimester: Qualified Code(s): F32.1 - Major depressive disorder, single episode, moderate (3) Hypothyroidism Hypothyroidism type: acquired Qualified Code(s): E03.9 - Hypothyroidism, unspecified (4) GERD (gastroesophageal reflux disease) Esophagitis presence: without esophagitis Qualified Code(s): K21.9 - Gastro- esophageal reflux disease without esophagitis
[2018-08-04] MEDS: CHECK SCOPOLAMINE PATCH PLACEMENT SCH ×2 (17:11→23:39)
[2018-08-04] MEDS: SCOPOLAMINE 1.5 MG TDSY TD SCH (17:33)
[2018-08-04] MEDS: MoRPHine SULFATE 2 MG/ML CARP IV PRN (19:32)
[2018-08-05] MEDS: metroNIDAZOLE 500 MG/100 ML BAG IV SCH ×2 (01:31→09:13)
[2018-08-05] MEDS: CIPROFLOXACIN 400 MG/200 ML BAG IV SCH (04:52)
[2018-08-05] MEDS: MoRPHine SULFATE 2 MG/ML CARP IV PRN (05:20)
[2018-08-05] MEDS: DICLOFENAC SOD 1% GEL 100 GM TUBE EXT SCH ×4 (08:23→21:16)
[2018-08-05] MEDS: CHECK SCOPOLAMINE PATCH PLACEMENT SCH ×3 (08:23→23:08)
[2018-08-05] MEDS: NYSTATIN SUSP 500,000 U/5 ML UDC PO SCH ×4 (08:23→21:16)
[2018-08-05] MEDS: PANTOprazole 40 MG in SYRINGE 0 ML IV SCH (09:13)
--- NOTE | 2018-08-05 13:44 | Hospitalist Progress Note ---
Date of Service August 05, 2018 Assessment & Plan (1) Acute and chronic respiratory failure with hypoxia: patient with thick secretions from trachea, respiratory status deteriorating patient no longer wants treatment would not want ventilation if breathing gets worse refusing all medications, even IV medications, does not want feedings via NGT will make patient comfort care Atropine, Scopolamine, Ativan and Morphine PRN stop blood draws stop other medications patient is DNR, provide comfort CM can talk with daughter about hospice services feel that patient is candidate for inpatient hospice she is not eating, requires IV medications for comfort, cannot take PO safely (2) Chronic cholecystitis: US with evidence of small stones and sludge but equivocal for infection HIDA showed no evidence of cystic duct obstruction thus ruling out acute cholecystitis however, there was delayed filling of gall bladder and EF was noted to be 5% diagnosis would be chronic cholecystitis vs dykinesis d/w daughter, cannot perform surgery not really a candidate for percutaneous drain either no longer tolerating tube feeds stop Cipro/Flagyl IV (3) Hemoptysis: stop Eliquis no further bleeding (4) Candidal urinary tract infection: was on caspofungin. now discontinued (5) MANJULA (acute kidney injury): patient was dehydrated on admission Cr tamera to 3-4 but now back to baseline at 1 with IV fluids continue to monitor requiring tube feeds to stay hydrated, will stop tube feeds no further blood draws (6) Hypernatremia: resolved (7) Atrial fibrillation: rate controlled hold Amiodarone since she cannot take PO (8) Hypothyroidism: Stable. Chronic * Continue Synthroid (9) Chronic diastolic CHF (congestive heart failure): euvolemic, continue to monitor volume status (10) Chronic kidney disease, stage III (moderate): As above (11) Depression: continue Celexa (12) Orthostatic hypotension: holding Midodrine since BP normal and even elevated at times (13) GERD (gastroesophageal reflux disease): Conitnue Sucralfate (14) Sepsis: treated for pneumonia and now will treat cholecystitis no current evidence of sepsis (15) Peripheral edema: diffuse ecchymosis and edema due to protein level of 1.1, no oncotic pressure cannot improve albumin level even on tube feeds discussed with patient and her daughter that this will not improve (16) Hypokalemia: no further blood draws (17) Severe protein-calorie malnutrition: had to stop tube feeds due to elevated residuals cannot tolerate Reglan due to allergy severe diarrhea, not absorbing anything no further nutrition (18) Anemia: 8.9 today no further blood draws (19) Hypophosphatemia: no further draws Subjective patient resting comfortably required two doses of Morphine over night scopolamine patch helping with secretions updated daughter at the bedside Review of Systems Unobtainable due to cognitive status (not responding) Physical Exam 2 Vital Signs (Past 24 Hours): Last Vital Signs Temp 37.1 C 08/04/18 15:16 Pulse 87 08/04/18 15:16 Resp 18 08/04/18 15:16 BP 101/61 08/04/18 15:16 Pulse Ox 95 08/04/18 15:16 Constitutional: + ill appearing; no acute distress Eyes: PERRL, conjunctivae normal, anicteric sclerae Neck: + abnormal visual inspection (tracheostomy in place with secretions) Respiratory: normal respiratory effort Auscultation: + diminished lung sounds (bases bilaterally) and + rhonchi (very coarse bilaterally) Cardiovascular: Rate/Rhythm: regular rate and regular rhythm Heart Sounds: normal S1 and normal S2; no murmur Extremities: + edema Gastrointestinal (Abdomen): normal bowel sounds, soft, nontender, no hepatosplenomegaly Musculoskeletal: Head/Neck/Chest: normocephalic and head atraumatic Extremities: + abnormal strength (generalized weakness) Skin: + erythema (bilateral arms and legs) Neurologic: patellar DTR's 2+ bilat, sensation intact Psychiatric: Orientation: + not alert (lethargic) Lymphatic: no cervical or axillary lymphadenopathy Results & Data Medications Administered Current Inpatient Medications Artificial Tears (Artificial Tears) 1 drops OP Q6H PRN PRN Reason: DRY EYES Stop: 08/23/18 01:26 Atropine Sulfate (Atropine Sulfate 1% Oph) 1 drops PO Q4H PRN PRN Reason: secretions Stop: 09/03/18 15:29 Diclofenac Sodium (Voltaren 1% Top) 1 appln EXT QID [facility] Stop: 08/23/18 08:59 Last Admin: 08/05/18 13:39 Dose: Not Given Heparin Sodium (Beef Lung) (Heparin Sod 10 Unit/Ml Flush) 5 ml FLUSH PRN PRN PRN Reason: Flush Stop: 08/26/18 23:32 Last Admin: 08/05/18 08:06 Dose: 5 ml Pantoprazole Sodium 40 mg/ (Syringe) 10 mls @ 5 mls/min IV DAILY@1100 [facility] Stop: 08/26/18 10:59 Last Admin: 08/05/18 09:13 Dose: Not Given Metronidazole (Flagyl) 500 mg in 100 mls @ 100 mls/hr IV Q8H [facility]; Protocol Stop: 08/11/18 17:29 Last Admin: 08/05/18 09:13 Dose: Not Given Ciprofloxacin (Cipro) 400 mg in 200 mls @ 100 mls/hr IV Q12H [facility] Stop: 08/11/18 17:29 Last Admin: 08/05/18 04:52 Dose: Not Given Lorazepam (Ativan) 0.5 mg in 1 mls @ 1 mls/min IV Q6H PRN PRN Reason: Anxiety Stop: 09/03/18 00:37 Miconazole Nitrate (Desenex) 1 appln EXT DAILY PRN; Protocol PRN Reason: TO SKIN FOLDS Stop: 08/23/18 15:44 Miscellaneous (Check Scopolamine Patch Placement) 1 ea N/A QS [facility] Stop: 09/03/18 15:59 Last Admin: 08/05/18 08:23 Dose: 1 ea Miscellaneous (Remove Transderm-Scop Patch) 1 ea N/A Q72H [facility] Stop: 09/06/18 17:58 Morphine Sulfate (Morphine Sulfate) 2 mg IV Q1H PRN PRN Reason: Dyspnea Stop: 08/18/18 15:24 Last Admin: 08/05/18 05:20 Dose: 2 mg Nystatin (Mycostatin) 5 ml PO QID [facility] Stop: 08/23/18 08:59 Last Admin: 08/05/18 13:39 Dose: Not Given Scopolamine (Transderm-Scop) 1.5 mg TD Q72H [facility] Stop: 09/03/18 17:59 Last Admin: 08/04/18 17:33 Dose: 1.5 mg _ (1) Atrial fibrillation Atrial fibrillation type: chronic Qualified Code(s): I48.2 - Chronic atrial fibrillation (2) Hypothyroidism Hypothyroidism type: acquired Qualified Code(s): E03.9 - Hypothyroidism, unspecified (3) Depression Depression Type: major depressive disorder Major depression recurrence: unspecified whether recurrent Active/Remission status: currently active Major depression episode severity: moderate Psychotic features: Trimester: Qualified Code(s): F32.1 - Major depressive disorder, single episode, moderate (4) GERD (gastroesophageal reflux disease) Esophagitis presence: without esophagitis Qualified Code(s): K21.9 - Gastro- esophageal reflux disease without esophagitis
[2018-08-06] MEDS: CHECK SCOPOLAMINE PATCH PLACEMENT SCH ×3 (08:44→23:02)
[2018-08-06] MEDS: MoRPHine SULFATE 2 MG/ML CARP IV PRN ×3 (08:44→23:02)
[2018-08-06] MEDS: NYSTATIN SUSP 500,000 U/5 ML UDC PO SCH ×4 (08:47→20:28)
[2018-08-06] MEDS: DICLOFENAC SOD 1% GEL 100 GM TUBE EXT SCH ×4 (08:48→20:28)
[2018-08-06] MEDS: LORazepam 0.5 MG/1 ML VIAL IV PRN ×2 (10:23→18:09)
--- NOTE | 2018-08-06 12:51 | Palliative Care Progress Note ---
Date of Service August 06, 2018 Assessment & Plan (1) Goals of care, counseling/discussion: -Over the last week patient has significantly declined. -She continues to have liquid stool requiring Dign[place] rectal tube. Wounds/ skin worsening. Limbs are weeping fluid. Electrolyte imbalances persist. Tracheal secretions are thick and tenacious. -Patient is now refusing any and all medications and some of her care from the nursing staff. -During the weekend, Dr. Bonilla spent a significant amount of time with the patient's daughter Grisel and the patient discussing goals of care. -Patient is now comfort measures only. -During my visit she appears to be in no distress or discomfort. No family at bedside. She does have PRN IV morphine and Ativan if needed. -If more frequent medications are needed, might be GIP candidate but currently she only received one dose of pain medication since yesterday. (2) Sepsis: [employer] (3) Metabolic encephalopathy: [employer] (4) Hemoptysis: (5) MANJULA (acute kidney injury): (6) Atrial fibrillation: (7) Chronic diastolic CHF (congestive heart failure): (8) UTI (urinary tract infection): (9) Chronic kidney disease, stage III (moderate): (10) Depression: Subjective Patient was transitioned to [employer] I [employer] over weekend. Patient did not respond to me during my visit. I did see that she was moving her hands and feet at random but not to command. No family at bedside. Discussed patient with primary RN and physician. Review of Systems Unobtainable due to cognitive status Physical Exam 2 Vital Signs (Past 24 Hours): Last Vital Signs Temp 37.1 C 08/04/18 15:16 Pulse 87 08/04/18 15:16 Resp 18 08/04/18 15:16 BP 101/61 08/04/18 15:16 Pulse Ox 95 08/04/18 15:16 Constitutional: + ill appearing and + frail appearing; + not well nourished and no acute distress Neck: trachea midline and + tracheostomy present Respiratory: normal respiratory effort; no respiratory distress Auscultation: + diminished lung sounds Cardiovascular: RRR, no murmur, no edema Gastrointestinal (Abdomen): Inspection/Auscultation: normal bowel sounds; abdomen not distended Percussion/Palpation: abdomen soft Skin: + ecchymosis (thin fragile skin) Neurologic: + obtunded (but moving extremities independently, not on command) Time Spent Midlevel 25 minutes with >50% of time spent at bedside with patient, primary RN and collaborating with physician to discuss EOL care and plan. _ (1) Atrial fibrillation Atrial fibrillation type: chronic Qualified Code(s): I48.2 - Chronic atrial fibrillation (2) UTI (urinary tract infection) Urinary tract infection type: acute cystitis Hematuria presence: without hematuria Indwelling urinary catheter type: Encounter type: Qualified Code( s): N30.00 - Acute cystitis without hematuria (3) Depression Depression Type: major depressive disorder Major depression recurrence: unspecified whether recurrent Active/Remission status: currently active Major depression episode severity: moderate Psychotic features: Trimester: Qualified Code(s): F32.1 - Major depressive disorder, single episode, moderate
--- NOTE | 2018-08-06 21:41 | Hospitalist Progress Note ---
Date of Service August 06, 2018 Assessment & Plan (1) Acute and chronic respiratory failure with hypoxia: patient with thick secretions from trachea, respiratory status deteriorating patient no longer wants treatment would not want ventilation if breathing gets worse refusing all medications, even IV medications, does not want feedings via NGT will make patient comfort care Atropine, Scopolamine, Ativan and Morphine PRN stop blood draws stop other medications patient is DNR, yesterday, daughter accepted comfort care. Case management is working on inpatient hospice. feel that patient is candidate for inpatient hospice she is not eating, requires IV medications for comfort, cannot take PO safely Update: 16:00 Patient did not get approval for inpatient hospice. Will need to discuss other options with daughter. (2) Chronic cholecystitis: US with evidence of small stones and sludge but equivocal for infection HIDA showed no evidence of cystic duct obstruction thus ruling out acute cholecystitis however, there was delayed filling of gall bladder and EF was noted to be 5% diagnosis would be chronic cholecystitis vs dykinesis d/w daughter, cannot perform surgery not really a candidate for percutaneous drain either no longer tolerating tube feeds stop Cipro/Flagyl IV (3) Hemoptysis: stop Eliquis no further bleeding (4) Candidal urinary tract infection: was on caspofungin. now discontinued (5) MANJULA (acute kidney injury): patient was dehydrated on admission Cr tamera to 3-4 but now back to baseline at 1 with IV fluids continue to monitor requiring tube feeds to stay hydrated, will stop tube feeds no further blood draws (6) Hypernatremia: resolved (7) Atrial fibrillation: rate controlled hold Amiodarone since she cannot take PO (8) Hypothyroidism: Stable. Chronic * Continue Synthroid (9) Chronic diastolic CHF (congestive heart failure): euvolemic, continue to monitor volume status (10) Chronic kidney disease, stage III (moderate): As above (11) Depression: continue Celexa (12) Orthostatic hypotension: holding Midodrine since BP normal and even elevated at times (13) GERD (gastroesophageal reflux disease): Conitnue Sucralfate (14) Sepsis: treated for pneumonia and now will treat cholecystitis no current evidence of sepsis (15) Peripheral edema: diffuse ecchymosis and edema due to protein level of 1.1, no oncotic pressure cannot improve albumin level even on tube feeds discussed with patient and her daughter that this will not improve (16) Hypokalemia: no further blood draws (17) Severe protein-calorie malnutrition: had to stop tube feeds due to elevated residuals cannot tolerate Reglan due to allergy severe diarrhea, not absorbing anything no further nutrition (18) Anemia: 8.9 no further blood draws (19) Hypophosphatemia: no further draws Spent 25 minutes in managment of patient. No further lab draws due to patient being comfort measures Subjective Patient is resting comfortably. Patient though is lethargic and does not provide significant history. No complaints. Constitutional: + fatigue and + weakness Respiratory: + cough, + dyspnea, + hemoptysis and + sputum production Cardiovascular: + dyspnea Gastrointestinal: + dysphagia (aspirating) and + diarrhea/loose stools Integumentary: + rash, + lesions and + skin swelling (diffuse edema) Neurologic: + generalized weakness Physical Exam 2 Vital Signs (Past 24 Hours): Last Vital Signs Temp 37.1 C 08/04/18 15:16 Pulse 87 08/04/18 15:16 Resp 18 08/04/18 15:16 BP 101/61 08/04/18 15:16 Pulse Ox 95 08/04/18 15:16 Physical Exam: Constitutional: + ill appearing; no acute distress Eyes: PERRL, conjunctivae normal Neck: + abnormal visual inspection (tracheostomy in place) Respiratory: normal respiratory effort Auscultation: + diminished lung sounds (bases bilaterally) and + rhonchi (very coarse bilaterally) Cardiovascular: Regular rate and regular rhythm Heart Sounds: normal S1 and normal S2; no murmur Extremities: + edema Gastrointestinal (Abdomen): normal bowel sounds, soft, nontender, no hepatosplenomegaly Musculoskeletal: Head/Neck/Chest: normocephalic and head atraumatic Extremities: + abnormal strength (generalized weakness) Skin: + erythema (bilateral arms and legs) Neurologic: patellar DTR's 2+ bilat, sensation intact Psychiatric: Orientation: + not alert (lethargic) Lymphatic: no cervical or axillary lymphadenopathy _ (1) Atrial fibrillation Atrial fibrillation type: chronic Qualified Code(s): I48.2 - Chronic atrial fibrillation (2) Depression Active/Remission status: currently active Depression Type: major depressive disorder Major depression episode severity: moderate Major depression recurrence: unspecified whether recurrent Psychotic features: Trimester: Qualified Code(s): F32.1 - Major depressive disorder, single episode, moderate (3) Hypothyroidism Hypothyroidism type: acquired Qualified Code(s): E03.9 - Hypothyroidism, unspecified (4) GERD (gastroesophageal reflux disease) Esophagitis presence: without esophagitis Qualified Code(s): K21.9 - Gastro- esophageal reflux disease without esophagitis
[2018-08-07] MEDS: MoRPHine SULFATE 2 MG/ML CARP IV PRN ×5 (04:56→20:02)
[2018-08-07] MEDS: NYSTATIN SUSP 500,000 U/5 ML UDC PO SCH ×4 (09:09→20:02)
[2018-08-07] MEDS: CHECK SCOPOLAMINE PATCH PLACEMENT SCH ×3 (09:09→23:35)
[2018-08-07] MEDS: DICLOFENAC SOD 1% GEL 100 GM TUBE EXT SCH ×4 (09:10→20:02)
[2018-08-07] MEDS: SCOPOLAMINE 1.5 MG TDSY TD SCH (17:27)
--- NOTE | 2018-08-07 23:26 | Hospitalist Progress Note ---
Date of Service August 07, 2018 Assessment & Plan (1) Acute and chronic respiratory failure with hypoxia: patient with thick secretions from trachea, respiratory status deteriorating patient no longer wants treatment would not want ventilation if breathing gets worse refusing all medications, even IV medications, does not want feedings via NGT will make patient comfort care Atropine, Scopolamine, Ativan and Morphine PRN stop blood draws stop other medications patient is DNR, 08/05, daughter accepted comfort care. Patient does not qualify for inpatient hospice.Awaiting input from daughter to decide on outpatient agencies. D/W palliative care. (2) Chronic cholecystitis: US with evidence of small stones and sludge but equivocal for infection HIDA showed no evidence of cystic duct obstruction thus ruling out acute cholecystitis however, there was delayed filling of gall bladder and EF was noted to be 5% diagnosis would be chronic cholecystitis vs dykinesis d/w daughter, cannot perform surgery not really a candidate for percutaneous drain either no longer tolerating tube feeds stop Cipro/Flagyl IV (3) Hemoptysis: stop Eliquis no further bleeding (4) Candidal urinary tract infection: was on caspofungin. now discontinued (5) MANJULA (acute kidney injury): patient was dehydrated on admission Cr tamera to 3-4 but now back to baseline at 1 with IV fluids continue to monitor requiring tube feeds to stay hydrated, will stop tube feeds no further blood draws (6) Hypernatremia: resolved (7) Atrial fibrillation: rate controlled hold Amiodarone since she cannot take PO (8) Hypothyroidism: Stable. Chronic * Continue Synthroid (9) Chronic diastolic CHF (congestive heart failure): euvolemic, continue to monitor volume status (10) Chronic kidney disease, stage III (moderate): As above (11) Depression: continue Celexa (12) Orthostatic hypotension: holding Midodrine since BP normal and even elevated at times (13) GERD (gastroesophageal reflux disease): Conitnue Sucralfate (14) Sepsis: treated for pneumonia and now will treat cholecystitis no current evidence of sepsis (15) Peripheral edema: diffuse ecchymosis and edema due to protein level of 1.1, no oncotic pressure cannot improve albumin level even on tube feeds discussed with patient and her daughter that this will not improve (16) Hypokalemia: no further blood draws (17) Severe protein-calorie malnutrition: had to stop tube feeds due to elevated residuals cannot tolerate Reglan due to allergy severe diarrhea, not absorbing anything no further nutrition (18) Anemia: 8.9 no further blood draws (19) Hypophosphatemia: no further draws Spent 25 minutes in managment of patient, discussing case with case management and palliative care. No further lab draws due to patient being comfort measures Subjective Patient continues to resting comfortably. Patient though is lethargic and does not provide significant history. No complaints. Daughter is not at bedside at time of exam. Constitutional: + fatigue and + weakness Respiratory: + cough and + sputum production Cardiovascular: + dyspnea Gastrointestinal: + dysphagia (aspirating) and + diarrhea/loose stools Integumentary: + rash, + lesions and + skin swelling (diffuse edema) Neurologic: + generalized weakness Physical Exam 2 Vital Signs (Past 24 Hours): Last Vital Signs Temp 37.1 C 08/04/18 15:16 Pulse 87 08/04/18 15:16 Resp 18 08/04/18 15:16 BP 101/61 08/04/18 15:16 Pulse Ox 95 08/04/18 15:16 Physical Exam: Constitutional: + ill appearing; no acute distress Eyes: PERRL, conjunctivae normal Neck: + abnormal visual inspection (tracheostomy in place) Respiratory: normal respiratory effort Auscultation: + diminished lung sounds (bases bilaterally) and + rhonchi (very coarse bilaterally) Cardiovascular: Regular rate and regular rhythm Heart Sounds: normal S1 and normal S2; no murmur Extremities: + edema Gastrointestinal (Abdomen): normal bowel sounds, soft, nontender, no hepatosplenomegaly Musculoskeletal: Head/Neck/Chest: normocephalic and head atraumatic Extremities:unable to assess strength as patient is unresponsive. Skin: + erythema (bilateral arms and legs) Neurologic: patellar DTR's 2+ bilat, sensation intact Psychiatric: Orientation: + not alert (lethargic) Lymphatic: no cervical or axillary lymphadenopathy _ (1) Atrial fibrillation Atrial fibrillation type: chronic Qualified Code(s): I48.2 - Chronic atrial fibrillation (2) Hypothyroidism Hypothyroidism type: acquired Qualified Code(s): E03.9 - Hypothyroidism, unspecified (3) Depression Depression Type: major depressive disorder Major depression recurrence: unspecified whether recurrent Active/Remission status: currently active Major depression episode severity: moderate Psychotic features: Trimester: Qualified Code(s): F32.1 - Major depressive disorder, single episode, moderate (4) GERD (gastroesophageal reflux disease) Esophagitis presence: without esophagitis Qualified Code(s): K21.9 - Gastro- esophageal reflux disease without esophagitis
[2018-08-08] MEDS: MoRPHine SULFATE 2 MG/ML CARP IV PRN ×3 (03:36→08:51)
[2018-08-08] MEDS: CHECK SCOPOLAMINE PATCH PLACEMENT SCH ×2 (08:48→16:46)
[2018-08-08] MEDS: DICLOFENAC SOD 1% GEL 100 GM TUBE EXT SCH ×4 (08:48→20:58)
[2018-08-08] MEDS: NYSTATIN SUSP 500,000 U/5 ML UDC PO SCH ×4 (08:49→20:58)
--- NOTE | 2018-08-08 10:26 | Palliative Care Progress Note ---
Date of Service August 08, 2018 Assessment & Plan (1) Goals of care, counseling/discussion: -Over the last week patient has significantly declined. -She continues to have liquid stool requiring Dignishield rectal tube. Wounds/ skin does not appear to be worsening at this time as her edema has improved. Her wounds are not improving and with no nutrition it is anticipated that they will not improve. Limbs are weeping fluid; however, this is stablizing. -Electrolyte imbalances persist and are anticipated with an actively slowly dying patient. -Tracheal secretions are thick and tenacious through her trach collar. -Patient has been fully transitioned to COMFORT MEASURES ONLY over the weekend. -Patients daughter, Grisel was resistant to having Hospice talk with her today. Cathy from [facility] came to evaluate the patient for GIP HOSPICE. At this time, I do not think that the patient is GIP appropriate; however, suggested Grisel allow her to talk and she was then willing to allow her to come in the room. She also requested speaking with someone from Case Management at a director level to discuss her options. I was very clear with Grisel that a plan needed to be in place regarding her transitioning to a SNF. I do not think she will be appropriate for skilled service as I do not see she has ability to participate in PT/OT and is very Hospice appropriate. - I suggested that we can surely have her re-evaluated if she does not qualify for GIP if we notice a decline and additional symptom management needs over the next few days. -During my visit she appears to be in no distress or discomfort. (2) Sepsis: OIM CONSULTANT (3) Metabolic encephalopathy: OIM CONSULTANT (4) Hemoptysis: -OIM CONSULTANT. No hemoptysis noted today. (5) MANJULA (acute kidney injury): -CKD stage III at baseline. -Creatinine 2.07 on admission, 4.02 today. -Could be secondary to dehydration. BUN 52 today. -IVF stopped (6) Atrial fibrillation: -Rate-controlled. -Chronic. (7) Chronic diastolic CHF (congestive heart failure): -Stable and chronic. (8) UTI (urinary tract infection): -OIM CONSULTANT (9) Chronic kidney disease, stage III (moderate): As above (10) Depression: -Stable and chronic -On Celexa. Subjective Patient was lying in bed when I entered the room. The patient was transitioned to COMFORT MEASURES ONLY over the weekend. The patient has been receiving Morphine 1mg Q2 IV for comfort. I would like to transition her back to Roxanol with the patient's daughter's approval for additional systemic pain control as I believe it would benefit her breathing as well. The patient appears comfortable. The patients daughter has been intermittently resistant with the logistics regarding her transitioning to a SNF. Please see my assessment and plan for further details. Review of Systems Patient unable to speak and participate in ROS. She is unable to squeeze her hands in response to ROS. Patient unreliable with ROS. She was able to nod her head which appears appropriate response. Physical Exam 2 Vital Signs (Past 24 Hours): Last Vital Signs Temp 37.1 C 08/04/18 15:16 Pulse 87 08/04/18 15:16 Resp 18 08/04/18 15:16 BP 101/61 08/04/18 15:16 Pulse Ox 95 08/04/18 15:16 Physical Exam: Patient lying in bed. Pt. opened her eyes when I said her name and followed simple commands by nodding appropriately when I asked if she was having any pain she nodded. Respiratory: Auscultation: + rales (Pt has trach collar in place with humidified air at 9L) Cardiovascular: Rate/Rhythm: regular rate and regular rhythm Heart Sounds: normal S1 and normal S2 Extremities: + edema (trace edema ) Skin: Patient with multiple wounds, B/L behind her knees and a sacral decubitus ulcer that is not improving Psychiatric: A+Ox3, euthymic affect (Pt opened eyes to her name and nodded yes to pain question and if she wanted to listed to music) Eye Contact: + fair eye contact (This fluctuates daily) Time Spent Midlevel Total time spent 65 minutes with > 50% of that time spent reviewing the chart, assessing the patient, and discussing discharge plans and symptom management with patient and daughter at the bedside. _ (1) Atrial fibrillation Atrial fibrillation type: chronic Qualified Code(s): I48.2 - Chronic atrial fibrillation (2) UTI (urinary tract infection) Urinary tract infection type: acute cystitis Hematuria presence: without hematuria Indwelling urinary catheter type: Encounter type: Qualified Code( s): N30.00 - Acute cystitis without hematuria (3) Depression Depression Type: major depressive disorder Major depression recurrence: unspecified whether recurrent Active/Remission status: currently active Major depression episode severity: moderate Psychotic features: Trimester: Qualified Code(s): F32.1 - Major depressive disorder, single episode, moderate
[2018-08-08] MEDS: MoRPHine SULFATE 10 MG/0.5 ML UDP PO PRN (14:28)
--- NOTE | 2018-08-08 22:47 | Hospitalist Progress Note ---
Date of Service August 08, 2018 Assessment & Plan (1) Acute and chronic respiratory failure with hypoxia: patient with thick secretions from trachea, respiratory status deteriorating patient no longer wants treatment would not want ventilation if breathing gets worse refusing all medications, even IV medications, does not want feedings via NGT will make patient comfort care Atropine, Scopolamine, Ativan and Morphine PRN stop blood draws stop other medications patient is DNR, 08/05, daughter accepted comfort care. Patient does not qualify for inpatient hospice. Appears daughter is having difficulty deciding on outpatient agency as she is hoping for inpatient hospice. It was explained to daughter that her mother does not meet criteria for inpatient hospice. However, this may change throughout the hospital stay, if patient decompensates. D/W palliative care. (2) Chronic cholecystitis: US with evidence of small stones and sludge but equivocal for infection HIDA showed no evidence of cystic duct obstruction thus ruling out acute cholecystitis however, there was delayed filling of gall bladder and EF was noted to be 5% diagnosis would be chronic cholecystitis vs dykinesis d/w daughter, cannot perform surgery not really a candidate for percutaneous drain either no longer tolerating tube feeds stop Cipro/Flagyl IV (3) Hemoptysis: stop Eliquis no further bleeding (4) Candidal urinary tract infection: was on caspofungin. now discontinued (5) MANJULA (acute kidney injury): patient was dehydrated on admission Cr tamera to 3-4 but now back to baseline at 1 with IV fluids continue to monitor requiring tube feeds to stay hydrated, will stop tube feeds no further blood draws (6) Hypernatremia: resolved (7) Atrial fibrillation: rate controlled hold Amiodarone since she cannot take PO (8) Hypothyroidism: Stable. Chronic * Continue Synthroid (9) Chronic diastolic CHF (congestive heart failure): euvolemic, continue to monitor volume status (10) Chronic kidney disease, stage III (moderate): As above (11) Depression: continue Celexa (12) Orthostatic hypotension: holding Midodrine since BP normal and even elevated at times (13) GERD (gastroesophageal reflux disease): Conitnue Sucralfate (14) Sepsis: (15) Peripheral edema: diffuse ecchymosis and edema due to protein level of 1.1, no oncotic pressure cannot improve albumin level even on tube feeds discussed with patient and her daughter that this will not improve (16) Hypokalemia: no further blood draws (17) Severe protein-calorie malnutrition: had to stop tube feeds due to elevated residuals cannot tolerate Reglan due to allergy severe diarrhea, not absorbing anything no further nutrition (18) Anemia: 8.9 no further blood draws (19) Hypophosphatemia: no further draws Spent 25 minutes in managment of patient, discussing case with case management and palliative care. No further lab draws due to patient being comfort measures Subjective No signifcant change today as patient continues to be resting comfortably. Patient though is lethargic and does not provide significant history. No complaints. Daughter is not at bedside at time of exam. Constitutional: + fatigue and + weakness Respiratory: + cough and + sputum production Cardiovascular: + dyspnea Gastrointestinal: + dysphagia (aspirating) and + diarrhea/loose stools Integumentary: + rash, + lesions and + skin swelling (diffuse edema) Neurologic: + generalized weakness Physical Exam 2 Vital Signs (Past 24 Hours): Last Vital Signs Temp 37.1 C 08/04/18 15:16 Pulse 87 08/04/18 15:16 Resp 18 08/04/18 15:16 BP 101/61 08/04/18 15:16 Pulse Ox 95 08/04/18 15:16 Physical Exam: Constitutional: + ill appearing; no acute distress Eyes: PERRL, conjunctivae normal Neck: + abnormal visual inspection (tracheostomy in place) Respiratory: normal respiratory effort Auscultation: + diminished lung sounds (bases bilaterally) and + rhonchi (very coarse bilaterally) Cardiovascular: Regular rate and regular rhythm Heart Sounds: normal S1 and normal S2; no murmur Extremities: + edema Gastrointestinal (Abdomen): normal bowel sounds, soft, nontender, no hepatosplenomegaly Musculoskeletal: Head/Neck/Chest: normocephalic and head atraumatic Skin: + erythema (bilateral arms and legs) Psychiatric: : + not alert (lethargic) Lymphatic: no cervical or axillary lymphadenopathy _ (1) Atrial fibrillation Atrial fibrillation type: chronic Qualified Code(s): I48.2 - Chronic atrial fibrillation (2) Hypothyroidism Hypothyroidism type: acquired Qualified Code(s): E03.9 - Hypothyroidism, unspecified (3) Depression Depression Type: major depressive disorder Major depression recurrence: unspecified whether recurrent Active/Remission status: currently active Major depression episode severity: moderate Psychotic features: Trimester: Qualified Code(s): F32.1 - Major depressive disorder, single episode, moderate (4) GERD (gastroesophageal reflux disease) Esophagitis presence: without esophagitis Qualified Code(s): K21.9 - Gastro- esophageal reflux disease without esophagitis
[2018-08-09] MEDS: CHECK SCOPOLAMINE PATCH PLACEMENT SCH ×4 (01:18→23:35)
[2018-08-09] MEDS: MoRPHine SULFATE 10 MG/0.5 ML UDP PO PRN ×7 (06:34→21:34)
[2018-08-09] MEDS: SCOPOLAMINE 1.5 MG TDSY TD SCH (09:03)
[2018-08-09] MEDS: LORazepam 0.5 MG/1 ML VIAL IV PRN (09:07)
[2018-08-09] MEDS: NYSTATIN SUSP 500,000 U/5 ML UDC PO SCH ×4 (11:33→21:31)
[2018-08-09] MEDS: DICLOFENAC SOD 1% GEL 100 GM TUBE EXT SCH ×4 (11:33→21:32)
[2018-08-09] MEDS ORDERED: MoRPHine SULFATE 2 MG/ML CARP IV STA (12:59)
--- NOTE | 2018-08-09 22:42 | Hospitalist Progress Note ---
Date of Service August 09, 2018 Assessment & Plan (1) Acute and chronic respiratory failure with hypoxia: patient with thick secretions from trachea, respiratory status deteriorating patient no longer wants treatment would not want ventilation if breathing gets worse refusing all medications, even IV medications, does not want feedings via NGT made patient comfort care on 08/05 Atropine, Scopolamine, Ativan and Morphine PRN stop blood draws stop other medications patient is DNR, 08/05, daughter accepted comfort care. Patient does not qualify for inpatient hospice. Patient appears to be declining today. Will re-eval over weekend if patient can be inpatient hospice. As of right now, she does not meet criteria. (2) Chronic cholecystitis: US with evidence of small stones and sludge but equivocal for infection HIDA showed no evidence of cystic duct obstruction thus ruling out acute cholecystitis however, there was delayed filling of gall bladder and EF was noted to be 5% diagnosis would be chronic cholecystitis vs dykinesis d/w daughter, cannot perform surgery not really a candidate for percutaneous drain either no longer tolerating tube feeds stop Cipro/Flagyl IV (3) Hemoptysis: stop Eliquis no further bleeding (4) Candidal urinary tract infection: was on caspofungin. now discontinued (5) MANJULA (acute kidney injury): patient was dehydrated on admission Cr tamera to 3-4 but now back to baseline at 1 with IV fluids continue to monitor requiring tube feeds to stay hydrated, will stop tube feeds no further blood draws (6) Hypernatremia: resolved (7) Atrial fibrillation: rate controlled hold Amiodarone since she cannot take PO (8) Hypothyroidism: Stable. Chronic * Continue Synthroid (9) Chronic diastolic CHF (congestive heart failure): euvolemic, continue to monitor volume status (10) Chronic kidney disease, stage III (moderate): As above (11) Depression: continue Celexa (12) Orthostatic hypotension: holding Midodrine since BP normal and even elevated at times (13) GERD (gastroesophageal reflux disease): Conitnue Sucralfate (14) Sepsis: treated for pneumonia and now will treat cholecystitis no current evidence of sepsis (15) Peripheral edema: diffuse ecchymosis and edema due to protein level of 1.1, no oncotic pressure cannot improve albumin level even on tube feeds discussed with patient and her daughter that this will not improve (16) Hypokalemia: no further blood draws (17) Severe protein-calorie malnutrition: had to stop tube feeds due to elevated residuals cannot tolerate Reglan due to allergy severe diarrhea, not absorbing anything no further nutrition (18) Anemia: 8.9 no further blood draws (19) Hypophosphatemia: no further draws Spent 35 minutes in management of patient, discussing case with family, nurse ( Delores's sister was here today) No further lab draws due to patient being comfort measures Subjective Was called by nurse as patient awoke and stated that she needed to walk. She was very anxious. Patient required IV morphine. Once i arrived in the room, patient had calmed down. Physical Exam 2 Vital Signs (Past 24 Hours): Last Vital Signs Temp 37.1 C 08/04/18 15:16 Pulse 87 08/04/18 15:16 Resp 18 08/04/18 15:16 BP 101/61 08/04/18 15:16 Pulse Ox 95 08/04/18 15:16 Physical Exam: Constitutional: + ill appearing; no acute distress Eyes: PERRL, conjunctivae normal Neck: + abnormal visual inspection (tracheostomy in place) Respiratory: normal respiratory effort Auscultation: + diminished lung sounds (bases bilaterally) and + rhonchi (very coarse bilaterally) Cardiovascular: Regular rate and regular rhythm Heart Sounds: normal S1 and normal S2; no murmur Extremities: + edema Gastrointestinal (Abdomen): normal bowel sounds, soft, nontender, no hepatosplenomegaly Musculoskeletal: Head/Neck/Chest: normocephalic and head atraumatic Skin: + erythema (bilateral arms and legs) Psychiatric: : + not alert (lethargic) Lymphatic: no cervical or axillary lymphadenopathy _ (1) Atrial fibrillation Atrial fibrillation type: chronic Qualified Code(s): I48.2 - Chronic atrial fibrillation (2) Hypothyroidism Hypothyroidism type: acquired Qualified Code(s): E03.9 - Hypothyroidism, unspecified (3) Depression Depression Type: major depressive disorder Major depression recurrence: unspecified whether recurrent Active/Remission status: currently active Major depression episode severity: moderate Psychotic features: Trimester: Qualified Code(s): F32.1 - Major depressive disorder, single episode, moderate (4) GERD (gastroesophageal reflux disease) Esophagitis presence: without esophagitis Qualified Code(s): K21.9 - Gastro- esophageal reflux disease without esophagitis
[2018-08-10] MEDS: MoRPHine SULFATE 10 MG/0.5 ML UDP PO PRN ×3 (00:16→14:00)
[2018-08-10] MEDS: NYSTATIN SUSP 500,000 U/5 ML UDC PO SCH ×4 (07:45→20:21)
[2018-08-10] MEDS: DICLOFENAC SOD 1% GEL 100 GM TUBE EXT SCH ×4 (07:45→21:18)
[2018-08-10] MEDS: CHECK SCOPOLAMINE PATCH PLACEMENT SCH ×3 (07:49→23:41)
[2018-08-10] MEDS: SCOPOLAMINE 1.5 MG TDSY TD SCH (18:31)
[2018-08-11] MEDS: CHECK SCOPOLAMINE PATCH PLACEMENT SCH ×2 (09:02→15:47)
[2018-08-11] MEDS: DICLOFENAC SOD 1% GEL 100 GM TUBE EXT SCH ×4 (09:03→21:13)
[2018-08-11] MEDS: NYSTATIN SUSP 500,000 U/5 ML UDC PO SCH ×4 (09:03→21:12)
[2018-08-11] MEDS: MoRPHine SULFATE 10 MG/0.5 ML UDP PO PRN ×2 (09:10→18:33)
[2018-08-11] MEDS: LORazepam 0.5 MG/1 ML VIAL IV PRN (12:50)
[2018-08-12] MEDS: CHECK SCOPOLAMINE PATCH PLACEMENT SCH ×3 (00:37→15:24)
[2018-08-12] MEDS: NYSTATIN SUSP 500,000 U/5 ML UDC PO SCH ×4 (10:46→21:30)
[2018-08-12] MEDS: DICLOFENAC SOD 1% GEL 100 GM TUBE EXT SCH ×4 (10:46→21:31)
[2018-08-12] MEDS: MoRPHine SULFATE 10 MG/0.5 ML UDP PO PRN ×2 (10:57→21:43)
--- NOTE | 2018-08-13 00:35 | Hospitalist Progress Note ---
Date of Service August 12, 2018 Assessment & Plan (1) Acute and chronic respiratory failure with hypoxia: patient with thick secretions from trachea, respiratory status deteriorating patient no longer wants treatment would not want ventilation if breathing gets worse refusing all medications, even IV medications, does not want feedings via NGT made patient comfort care on 08/05 Atropine, Scopolamine, Ativan and Morphine PRN stop blood draws stop other medications patient is DNR, 08/05, daughter accepted comfort care. on 08/12 Patient does not qualify for inpatient hospice. Patient appears to be declining today. Will re-eval over weekend if patient can be inpatient hospice. As of right now, she does not meet criteria. On scopolamine, lorazepam and morphine for comfort (2) Chronic cholecystitis: US with evidence of small stones and sludge but equivocal for infection HIDA showed no evidence of cystic duct obstruction thus ruling out acute cholecystitis however, there was delayed filling of gall bladder and EF was noted to be 5% diagnosis would be chronic cholecystitis vs dykinesis d/w daughter, cannot perform surgery not really a candidate for percutaneous drain either no longer tolerating tube feeds stop Cipro/Flagyl IV (3) Hemoptysis: stop Eliquis no further bleeding (4) Candidal urinary tract infection: was on caspofungin. now discontinued (5) MANJULA (acute kidney injury): patient was dehydrated on admission Cr tamera to 3-4 but now back to baseline at 1 with IV fluids continue to monitor requiring tube feeds to stay hydrated, will stop tube feeds no further blood draws (6) Hypernatremia: resolved (7) Atrial fibrillation: rate controlled hold Amiodarone since she cannot take PO (8) Hypothyroidism: Stable. Chronic * stopped synthroid (9) Chronic diastolic CHF (congestive heart failure): euvolemic, continue to monitor volume status (10) Chronic kidney disease, stage III (moderate): As above (11) Depression: stopped celexa (12) Orthostatic hypotension: holding Midodrine since BP normal and even elevated at times (13) GERD (gastroesophageal reflux disease): stopped meds (14) Sepsis: treated for pneumonia and now will treat cholecystitis no current evidence of sepsis (15) Peripheral edema: diffuse ecchymosis and edema due to protein level of 1.1, no oncotic pressure cannot improve albumin level even on tube feeds discussed with patient and her daughter that this will not improve (16) Hypokalemia: no further blood draws (17) Severe protein-calorie malnutrition: had to stop tube feeds due to elevated residuals cannot tolerate Reglan due to allergy severe diarrhea, not absorbing anything no further nutrition (18) Anemia: 8.9 no further blood draws (19) Hypophosphatemia: no further draws Spent 25 minutes in management of patient, updated daughter No further lab draws due to patient being comfort measures Subjective Patient is not responding to verbal stimuli. Patient does not provide medical history at this time. Review of Systems Unobtainable due to mental health condition Physical Exam 2 Vital Signs (Past 24 Hours): Last Vital Signs Temp 37.1 C 08/04/18 15:16 Pulse 87 08/04/18 15:16 Resp 18 08/04/18 15:16 BP 101/61 08/04/18 15:16 Pulse Ox 95 08/04/18 15:16 Physical Exam: Constitutional: + ill appearing; no acute distress Eyes: PERRL, conjunctivae normal Neck: + abnormal visual inspection (tracheostomy in place, with thick secretions) Respiratory: normal respiratory effort Auscultation: + diminished lung sounds (bases bilaterally) and + rhonchi (very coarse bilaterally) Cardiovascular: Regular rate and regular rhythm Heart Sounds: normal S1 and normal S2; no murmur Extremities: + edema Gastrointestinal (Abdomen): normal bowel sounds, soft, nontender, no hepatosplenomegaly Musculoskeletal: Head/Neck/Chest: normocephalic and head atraumatic Skin: + erythema (bilateral arms and legs) Psychiatric: : + not alert (lethargic) Lymphatic: no cervical or axillary lymphadenopathy _ (1) Atrial fibrillation Atrial fibrillation type: chronic Qualified Code(s): I48.2 - Chronic atrial fibrillation (2) Hypothyroidism Hypothyroidism type: acquired Qualified Code(s): E03.9 - Hypothyroidism, unspecified (3) Depression Depression Type: major depressive disorder Major depression recurrence: unspecified whether recurrent Active/Remission status: currently active Major depression episode severity: moderate Psychotic features: Trimester: Qualified Code(s): F32.1 - Major depressive disorder, single episode, moderate (4) GERD (gastroesophageal reflux disease) Esophagitis presence: without esophagitis Qualified Code(s): K21.9 - Gastro- esophageal reflux disease without esophagitis
--- NOTE | 2018-08-13 00:36 | Hospitalist Progress Note ---
Date of Service August 10, 2018 Assessment & Plan (1) Acute and chronic respiratory failure with hypoxia: patient with thick secretions from trachea, respiratory status deteriorating patient no longer wants treatment would not want ventilation if breathing gets worse refusing all medications, even IV medications, does not want feedings via NGT made patient comfort care on 08/05 Atropine, Scopolamine, Ativan and Morphine PRN stop blood draws stop other medications patient is DNR, 08/05, daughter accepted comfort care. on 08/10 Patient does not qualify for inpatient hospice. Patient appears to be declining today. Will re-eval over weekend if patient can be inpatient hospice. As of right now, she does not meet criteria. (2) Chronic cholecystitis: US with evidence of small stones and sludge but equivocal for infection HIDA showed no evidence of cystic duct obstruction thus ruling out acute cholecystitis however, there was delayed filling of gall bladder and EF was noted to be 5% diagnosis would be chronic cholecystitis vs dykinesis d/w daughter, cannot perform surgery not really a candidate for percutaneous drain either no longer tolerating tube feeds stop Cipro/Flagyl IV (3) Hemoptysis: stop Eliquis no further bleeding (4) Candidal urinary tract infection: was on caspofungin. now discontinued (5) MANJULA (acute kidney injury): patient was dehydrated on admission Cr tamera to 3-4 but now back to baseline at 1 with IV fluids continue to monitor requiring tube feeds to stay hydrated, will stop tube feeds no further blood draws (6) Hypernatremia: resolved (7) Atrial fibrillation: rate controlled hold Amiodarone since she cannot take PO (8) Hypothyroidism: Stable. Chronic * stopped synthroid (9) Chronic diastolic CHF (congestive heart failure): euvolemic, continue to monitor volume status (10) Chronic kidney disease, stage III (moderate): As above (11) Depression: stopped celexa (12) Orthostatic hypotension: holding Midodrine since BP normal and even elevated at times (13) GERD (gastroesophageal reflux disease): stopped meds (14) Sepsis: treated for pneumonia and now will treat cholecystitis no current evidence of sepsis (15) Peripheral edema: diffuse ecchymosis and edema due to protein level of 1.1, no oncotic pressure cannot improve albumin level even on tube feeds discussed with patient and her daughter that this will not improve (16) Hypokalemia: no further blood draws (17) Severe protein-calorie malnutrition: had to stop tube feeds due to elevated residuals cannot tolerate Reglan due to allergy severe diarrhea, not absorbing anything no further nutrition (18) Anemia: 8.9 no further blood draws (19) Hypophosphatemia: no further draws Spent 25 minutes in management of patient, No further lab draws due to patient being comfort measures Subjective Patient is lethargic. Patient does not provide significant history today. ROS: is below. Constitutional: + fatigue and + weakness Respiratory: + cough and + sputum production Cardiovascular: + dyspnea Gastrointestinal: + dysphagia (aspirating) and + diarrhea/loose stools Integumentary: + rash, + lesions and + skin swelling (diffuse edema) Neurologic: + generalized weakness Physical Exam 2 Vital Signs (Past 24 Hours): Last Vital Signs Temp 37.1 C 08/04/18 15:16 Pulse 87 08/04/18 15:16 Resp 18 08/04/18 15:16 BP 101/61 08/04/18 15:16 Pulse Ox 95 08/04/18 15:16 Physical Exam: Constitutional: + ill appearing; no acute distress Eyes: PERRL, conjunctivae normal Neck: + abnormal visual inspection (tracheostomy in place) Respiratory: normal respiratory effort Auscultation: + diminished lung sounds (bases bilaterally) and + rhonchi (very coarse bilaterally) Cardiovascular: Regular rate and regular rhythm Heart Sounds: normal S1 and normal S2; no murmur Extremities: + edema Gastrointestinal (Abdomen): normal bowel sounds, soft, nontender, no hepatosplenomegaly Musculoskeletal: Head/Neck/Chest: normocephalic and head atraumatic Skin: + erythema (bilateral arms and legs) Psychiatric: : + not alert (lethargic) Lymphatic: no cervical or axillary lymphadenopathy _ (1) Atrial fibrillation Atrial fibrillation type: chronic Qualified Code(s): I48.2 - Chronic atrial fibrillation (2) Hypothyroidism Hypothyroidism type: acquired Qualified Code(s): E03.9 - Hypothyroidism, unspecified (3) Depression Depression Type: major depressive disorder Major depression recurrence: unspecified whether recurrent Active/Remission status: currently active Major depression episode severity: moderate Psychotic features: Trimester: Qualified Code(s): F32.1 - Major depressive disorder, single episode, moderate (4) GERD (gastroesophageal reflux disease) Esophagitis presence: without esophagitis Qualified Code(s): K21.9 - Gastro- esophageal reflux disease without esophagitis
--- NOTE | 2018-08-13 00:40 | Hospitalist Progress Note ---
Date of Service August 11, 2018 Assessment & Plan (1) Acute and chronic respiratory failure with hypoxia: patient with thick secretions from trachea, respiratory status deteriorating patient no longer wants treatment would not want ventilation if breathing gets worse refusing all medications, even IV medications, does not want feedings via NGT made patient comfort care on 08/05 Atropine, Scopolamine, Ativan and Morphine PRN stop blood draws stop other medications patient is DNR, 08/05, daughter accepted comfort care. on 08/11 Patient does not qualify for inpatient hospice. Patient appears to be declining today. Will re-eval over weekend if patient can be inpatient hospice. As of right now, she does not meet criteria. On scopolamine, lorazepam and morphine for comfort (2) Chronic cholecystitis: US with evidence of small stones and sludge but equivocal for infection HIDA showed no evidence of cystic duct obstruction thus ruling out acute cholecystitis however, there was delayed filling of gall bladder and EF was noted to be 5% diagnosis would be chronic cholecystitis vs dykinesis d/w daughter, cannot perform surgery not really a candidate for percutaneous drain either no longer tolerating tube feeds stop Cipro/Flagyl IV (3) Hemoptysis: stop Eliquis no further bleeding (4) Candidal urinary tract infection: was on caspofungin. now discontinued (5) MANJULA (acute kidney injury): patient was dehydrated on admission Cr tamera to 3-4 but now back to baseline at 1 with IV fluids continue to monitor requiring tube feeds to stay hydrated, will stop tube feeds no further blood draws (6) Hypernatremia: resolved (7) Atrial fibrillation: rate controlled hold Amiodarone since she cannot take PO (8) Hypothyroidism: Stable. Chronic * stopped synthroid (9) Chronic diastolic CHF (congestive heart failure): euvolemic, continue to monitor volume status (10) Chronic kidney disease, stage III (moderate): As above (11) Depression: stopped celexa (12) Orthostatic hypotension: holding Midodrine since BP normal and even elevated at times (13) GERD (gastroesophageal reflux disease): stopped meds (14) Sepsis: treated for pneumonia and now will treat cholecystitis no current evidence of sepsis (15) Peripheral edema: diffuse ecchymosis and edema due to protein level of 1.1, no oncotic pressure cannot improve albumin level even on tube feeds discussed with patient and her daughter that this will not improve (16) Hypokalemia: no further blood draws (17) Severe protein-calorie malnutrition: had to stop tube feeds due to elevated residuals cannot tolerate Reglan due to allergy severe diarrhea, not absorbing anything no further nutrition (18) Anemia: 8.9 no further blood draws (19) Hypophosphatemia: no further draws Spent 25 minutes in management of patient, No further lab draws due to patient being comfort measures Subjective Patient remains lethargic Patient does not provide significant history today. D/W nurse, patient continues to have loose stools ROS: is below. Constitutional: + fatigue and + weakness Respiratory: + cough and + sputum production Cardiovascular: + dyspnea Gastrointestinal: + dysphagia (aspirating) and + diarrhea/loose stools Integumentary: + rash, + lesions and + skin swelling (diffuse edema) Neurologic: + generalized weakness Physical Exam 2 Vital Signs (Past 24 Hours): Last Vital Signs Temp 37.1 C 08/04/18 15:16 Pulse 87 08/04/18 15:16 Resp 18 08/04/18 15:16 BP 101/61 08/04/18 15:16 Pulse Ox 95 08/04/18 15:16 Physical Exam: Constitutional: + ill appearing; no acute distress Eyes: PERRL, conjunctivae normal Neck: + abnormal visual inspection (tracheostomy in place) Respiratory: normal respiratory effort Auscultation: + diminished lung sounds (bases bilaterally) and + rhonchi (very coarse bilaterally) Cardiovascular: Regular rate and regular rhythm Heart Sounds: normal S1 and normal S2; no murmur Extremities: + edema Gastrointestinal (Abdomen): normal bowel sounds, soft, nontender, no hepatosplenomegaly Musculoskeletal: Head/Neck/Chest: normocephalic and head atraumatic Skin: + erythema (bilateral arms and legs) Psychiatric: : + not alert (lethargic) Lymphatic: no cervical or axillary lymphadenopathy _ (1) Atrial fibrillation Atrial fibrillation type: chronic Qualified Code(s): I48.2 - Chronic atrial fibrillation (2) Hypothyroidism Hypothyroidism type: acquired Qualified Code(s): E03.9 - Hypothyroidism, unspecified (3) Depression Depression Type: major depressive disorder Major depression recurrence: unspecified whether recurrent Active/Remission status: currently active Major depression episode severity: moderate Psychotic features: Trimester: Qualified Code(s): F32.1 - Major depressive disorder, single episode, moderate (4) GERD (gastroesophageal reflux disease) Esophagitis presence: without esophagitis Qualified Code(s): K21.9 - Gastro- esophageal reflux disease without esophagitis
[2018-08-13] MEDS: MoRPHine SULFATE 10 MG/0.5 ML UDP PO PRN ×3 (01:56→18:33)
[2018-08-13] MEDS: ATROPINE SULFATE 1% OP SOLN 5 ML BTL PO PRN (02:01)
[2018-08-13] MEDS: CHECK SCOPOLAMINE PATCH PLACEMENT SCH ×3 (02:04→16:11)
[2018-08-13] MEDS: DICLOFENAC SOD 1% GEL 100 GM TUBE EXT SCH ×4 (07:57→20:15)
[2018-08-13] MEDS: NYSTATIN SUSP 500,000 U/5 ML UDC PO SCH ×4 (07:57→20:15)
--- NOTE | 2018-08-13 13:56 | Palliative Care Progress Note ---
Date of Service August 13, 2018 Assessment & Plan (1) Palliative care encounter: -Over the last week patient has significantly declined. Appears thinner -She continues to have liquid stool requiring Dignishield rectal tube. -Patient is now on comfort meds only, scopolamine for excess secretions -Patient is now comfort measures only. -During my visit she appears to be in no distress or discomfort. No family at bedside. She does have PRN PO morphine and IV Ativan if needed.-She required 2 as needed morphine in the past 24 hours for comfort (2) Sepsis: Comfort care (3) Metabolic encephalopathy: On comfort care (4) MANJULA (acute kidney injury): No further lab work (5) Atrial fibrillation: Rate controlled (6) Chronic diastolic CHF (congestive heart failure): No further lower extremity weeping (7) Chronic kidney disease, stage III (moderate): No further lab work (8) Depression: Stable Subjective Patient seen and examined, no family at bedside, patient denies discomfort, pain , shortness of breath. No new issues per nursing. Patient is currently on comfort care Physical Exam 2 Vital Signs (Past 24 Hours): Last Vital Signs Temp 37.0 C 08/13/18 07:57 Pulse 84 08/13/18 07:57 Resp 22 08/13/18 07:57 BP 132/65 08/13/18 07:57 Pulse Ox 100 08/13/18 07:57 Physical Exam: PE: NAD HEENT: EOMI, normal hearing Neck: Trach with trach collar in place Respiratory: Good air movement, equal breath sounds, no respiratory distress CV: Regular rate, no edema Abdomen: Soft, nontender Skin: Warm and dry, good perfusion Neuro: Awake, alert Time Spent Attending Total time spent 25 minutes with greater than 50% of the time spent at bedside assessing patient's comfort level.
--- NOTE | 2018-08-13 15:06 | Hospitalist Progress Note ---
Date of Service August 13, 2018 Assessment & Plan (1) Acute and chronic respiratory failure with hypoxia: patient with thick secretions from trachea, respiratory status deteriorating patient no longer wants treatment would not want ventilation if breathing gets worse refusing all medications, even IV medications, does not want feedings via NGT made patient comfort care on 08/05 Atropine, Scopolamine, Ativan and Morphine PRN stop blood draws stop other medications will need to look into SNF for hospice patient does not meet inpatient criteria she certainly appears comfortable today (2) Chronic cholecystitis: US with evidence of small stones and sludge but equivocal for infection HIDA showed no evidence of cystic duct obstruction thus ruling out acute cholecystitis however, there was delayed filling of gall bladder and EF was noted to be 5% diagnosis would be chronic cholecystitis vs dykinesis d/w daughter, cannot perform surgery not really a candidate for percutaneous drain either no longer tolerating tube feeds stop Cipro/Flagyl IV (3) Hemoptysis: stop Eliquis no further bleeding (4) Candidal urinary tract infection: was on caspofungin. now discontinued (5) MANJULA (acute kidney injury): patient was dehydrated on admission Cr tamera to 3-4 but now back to baseline at 1 with IV fluids continue to monitor requiring tube feeds to stay hydrated, will stop tube feeds no further blood draws (6) Hypernatremia: resolved (7) Atrial fibrillation: rate controlled hold Amiodarone since she cannot take PO (8) Hypothyroidism: Stable. Chronic * stopped synthroid (9) Chronic diastolic CHF (congestive heart failure): euvolemic, continue to monitor volume status (10) Chronic kidney disease, stage III (moderate): As above (11) Depression: stopped celexa (12) Orthostatic hypotension: holding Midodrine since BP normal and even elevated at times (13) GERD (gastroesophageal reflux disease): stopped meds (14) Sepsis: treated for pneumonia and now will treat cholecystitis no current evidence of sepsis (15) Peripheral edema: diffuse ecchymosis and edema due to protein level of 1.1, no oncotic pressure cannot improve albumin level even on tube feeds discussed with patient and her daughter that this will not improve (16) Hypokalemia: no further blood draws (17) Severe protein-calorie malnutrition: had to stop tube feeds due to elevated residuals cannot tolerate Reglan due to allergy severe diarrhea, not absorbing anything no further nutrition (18) Anemia: 8.9 no further blood draws (19) Hypophosphatemia: no further draws Spent 25 minutes in management of patient, updated daughter No further lab draws due to patient being comfort measures Subjective patient resting comfortably, comfort measures only required two doses of morphine in past 24 hours case management working on transfer to SNF patient is certainly declining over the past week vitals stable today Review of Systems Unobtainable due to reduced consciousness Physical Exam 2 Vital Signs (Past 24 Hours): Last Vital Signs Temp 37.0 C 08/13/18 07:57 Pulse 84 08/13/18 07:57 Resp 22 08/13/18 07:57 BP 132/65 08/13/18 07:57 Pulse Ox 100 08/13/18 07:57 Constitutional: + ill appearing; no acute distress and + not appropriately hydrated Eyes: PERRL, conjunctivae normal, anicteric sclerae Neck: + abnormal visual inspection (tracheostomy in place with secretions) Respiratory: normal respiratory effort and + cough Auscultation: + diminished lung sounds (bases bilaterally) and + rhonchi (very coarse bilaterally) Cardiovascular: Rate/Rhythm: regular rate and regular rhythm Heart Sounds: normal S1 and normal S2; no murmur Extremities: + edema Gastrointestinal (Abdomen): normal bowel sounds, soft, nontender, no hepatosplenomegaly Musculoskeletal: Head/Neck/Chest: normocephalic and head atraumatic Extremities: + abnormal strength (generalized weakness) Skin: + erythema (bilateral arms and legs) Neurologic: patellar DTR's 2+ bilat, sensation intact Psychiatric: Orientation: + not alert (lethargic) Mood: + depressed mood Lymphatic: no cervical or axillary lymphadenopathy _ (1) Atrial fibrillation Atrial fibrillation type: chronic Qualified Code(s): I48.2 - Chronic atrial fibrillation (2) Hypothyroidism Hypothyroidism type: acquired Qualified Code(s): E03.9 - Hypothyroidism, unspecified (3) Depression Depression Type: major depressive disorder Major depression recurrence: unspecified whether recurrent Active/Remission status: currently active Major depression episode severity: moderate Psychotic features: Trimester: Qualified Code(s): F32.1 - Major depressive disorder, single episode, moderate (4) GERD (gastroesophageal reflux disease) Esophagitis presence: without esophagitis Qualified Code(s): K21.9 - Gastro- esophageal reflux disease without esophagitis
[2018-08-13] MEDS: SCOPOLAMINE 1.5 MG TDSY TD SCH (17:51)
[2018-08-14] MEDS: CHECK SCOPOLAMINE PATCH PLACEMENT SCH ×4 (00:30→23:16)
[2018-08-14] MEDS: DICLOFENAC SOD 1% GEL 100 GM TUBE EXT SCH ×4 (07:58→20:11)
[2018-08-14] MEDS: NYSTATIN SUSP 500,000 U/5 ML UDC PO SCH ×4 (07:58→20:11)
[2018-08-14] MEDS: MoRPHine SULFATE 10 MG/0.5 ML UDP PO PRN (13:34)
--- NOTE | 2018-08-14 17:57 | Hospitalist Progress Note ---
Date of Service August 14, 2018 Assessment & Plan (1) Acute and chronic respiratory failure with hypoxia: patient with thick secretions from trachea, respiratory status deteriorating patient no longer wants treatment would not want ventilation if breathing gets worse refusing all medications, even IV medications, does not want feedings via NGT made patient comfort care on 08/05 Atropine, Scopolamine, Ativan and Morphine PRN stop blood draws stop other medications will need to look into SNF for hospice patient does not meet inpatient criteria she certainly appears comfortable today plan for [facility], maybe tomorrow if they have a bed (2) Chronic cholecystitis: US with evidence of small stones and sludge but equivocal for infection HIDA showed no evidence of cystic duct obstruction thus ruling out acute cholecystitis however, there was delayed filling of gall bladder and EF was noted to be 5% diagnosis would be chronic cholecystitis vs dykinesis d/w daughter, cannot perform surgery not really a candidate for percutaneous drain either no longer tolerating tube feeds stop Cipro/Flagyl IV (3) Hemoptysis: stop Eliquis no further bleeding (4) Candidal urinary tract infection: was on caspofungin. now discontinued (5) MANJULA (acute kidney injury): patient was dehydrated on admission Cr tamera to 3-4 but now back to baseline at 1 with IV fluids continue to monitor requiring tube feeds to stay hydrated, will stop tube feeds no further blood draws (6) Hypernatremia: resolved (7) Atrial fibrillation: rate controlled hold Amiodarone since she cannot take PO (8) Hypothyroidism: Stable. Chronic * stopped synthroid (9) Chronic diastolic CHF (congestive heart failure): euvolemic, continue to monitor volume status (10) Chronic kidney disease, stage III (moderate): As above (11) Depression: stopped celexa (12) Orthostatic hypotension: holding Midodrine since BP normal and even elevated at times (13) GERD (gastroesophageal reflux disease): stopped meds (14) Sepsis: treated for pneumonia and now will treat cholecystitis no current evidence of sepsis (15) Peripheral edema: diffuse ecchymosis and edema due to protein level of 1.1, no oncotic pressure cannot improve albumin level even on tube feeds discussed with patient and her daughter that this will not improve (16) Hypokalemia: no further blood draws (17) Severe protein-calorie malnutrition: had to stop tube feeds due to elevated residuals cannot tolerate Reglan due to allergy severe diarrhea, not absorbing anything no further nutrition (18) Anemia: 8.9 no further blood draws (19) Hypophosphatemia: no further draws Spent 25 minutes in management of patient, updated daughter No further lab draws due to patient being comfort measures Subjective resting comfortably d/w CM and daughter Grisel, plan for [facility] for hospice will try to make arrangements for tomorrow Review of Systems Unobtainable due to cognitive status Physical Exam 2 Vital Signs (Past 24 Hours): Last Vital Signs Temp 36.8 C 08/14/18 07:56 Pulse 56 L 08/14/18 07:56 Resp 22 08/14/18 07:56 BP 142/69 H 08/14/18 07:56 Pulse Ox 95 08/14/18 07:56 Constitutional: + ill appearing; no acute distress and + not appropriately hydrated Eyes: PERRL, conjunctivae normal, anicteric sclerae Neck: + abnormal visual inspection (tracheostomy in place with secretions) Respiratory: normal respiratory effort and + cough Auscultation: + diminished lung sounds (bases bilaterally) and + rhonchi (very coarse bilaterally) Cardiovascular: Rate/Rhythm: regular rate and regular rhythm Heart Sounds: normal S1 and normal S2; no murmur Extremities: + edema Gastrointestinal (Abdomen): normal bowel sounds, soft, nontender, no hepatosplenomegaly Musculoskeletal: Head/Neck/Chest: normocephalic and head atraumatic Extremities: + abnormal strength (generalized weakness) Skin: + erythema (bilateral arms and legs) Neurologic: patellar DTR's 2+ bilat, sensation intact Psychiatric: Orientation: + not alert (lethargic) Mood: + depressed mood Lymphatic: no cervical or axillary lymphadenopathy _ (1) Atrial fibrillation Atrial fibrillation type: chronic Qualified Code(s): I48.2 - Chronic atrial fibrillation (2) Hypothyroidism Hypothyroidism type: acquired Qualified Code(s): E03.9 - Hypothyroidism, unspecified (3) Depression Depression Type: major depressive disorder Major depression recurrence: unspecified whether recurrent Active/Remission status: currently active Major depression episode severity: moderate Psychotic features: Trimester: Qualified Code(s): F32.1 - Major depressive disorder, single episode, moderate (4) GERD (gastroesophageal reflux disease) Esophagitis presence: without esophagitis Qualified Code(s): K21.9 - Gastro- esophageal reflux disease without esophagitis
[2018-08-15] MEDS: DICLOFENAC SOD 1% GEL 100 GM TUBE EXT SCH ×4 (08:47→21:09)
[2018-08-15] MEDS: NYSTATIN SUSP 500,000 U/5 ML UDC PO SCH ×4 (08:47→21:09)
[2018-08-15] MEDS: CHECK SCOPOLAMINE PATCH PLACEMENT SCH ×3 (08:50→23:53)
[2018-08-15] MEDS: LORazepam 0.5 MG/1 ML VIAL IV PRN (09:01)
[2018-08-15] MEDS ORDERED: ONDANSETRON INJ 2 MG/ML 2 ML VIAL IV PRN (11:46)
[2018-08-15] MEDS: MoRPHine SULFATE 10 MG/0.5 ML UDP PO PRN (16:37)
[2018-08-15] MEDS: SCOPOLAMINE 1.5 MG TDSY TD SCH (18:43)
[2018-08-16] MEDS: MoRPHine SULFATE 10 MG/0.5 ML UDP PO PRN (01:10)
[2018-08-16] MEDS: NYSTATIN SUSP 500,000 U/5 ML UDC PO SCH ×2 (08:29→12:19)
[2018-08-16] MEDS: DICLOFENAC SOD 1% GEL 100 GM TUBE EXT SCH ×2 (08:29→12:19)
[2018-08-16] MEDS: CHECK SCOPOLAMINE PATCH PLACEMENT SCH ×3 (08:29→23:55)
--- NOTE | 2018-08-16 17:08 | Hospitalist Progress Note ---
Date of Service August 16, 2018 Assessment & Plan (1) Acute and chronic respiratory failure with hypoxia: patient with thick secretions from trachea, respiratory status deteriorating patient no longer wants treatment would not want ventilation if breathing gets worse refusing all medications, even IV medications, does not want feedings via NGT made patient comfort care on 08/05 Atropine, Scopolamine, Ativan and Morphine PRN stop blood draws stop other medications plan for Hospice care at [facility] once bed available plan for [facility], maybe tomorrow if they have a bed (2) Chronic cholecystitis: US with evidence of small stones and sludge but equivocal for infection HIDA showed no evidence of cystic duct obstruction thus ruling out acute cholecystitis however, there was delayed filling of gall bladder and EF was noted to be 5% diagnosis would be chronic cholecystitis vs dykinesis d/w daughter, cannot perform surgery not really a candidate for percutaneous drain either no longer tolerating tube feeds stop Cipro/Flagyl IV (3) Hemoptysis: stop Eliquis no further bleeding (4) Candidal urinary tract infection: was on caspofungin. now discontinued (5) MANJULA (acute kidney injury): patient was dehydrated on admission Cr tamera to 3-4 but now back to baseline at 1 with IV fluids continue to monitor requiring tube feeds to stay hydrated, will stop tube feeds no further blood draws (6) Hypernatremia: resolved (7) Atrial fibrillation: rate controlled hold Amiodarone since she cannot take PO (8) Hypothyroidism: Stable. Chronic * stopped synthroid (9) Chronic diastolic CHF (congestive heart failure): euvolemic, continue to monitor volume status (10) Chronic kidney disease, stage III (moderate): As above (11) Depression: stopped celexa (12) Orthostatic hypotension: holding Midodrine since BP normal and even elevated at times (13) GERD (gastroesophageal reflux disease): stopped meds (14) Sepsis: treated for pneumonia and now will treat cholecystitis no current evidence of sepsis (15) Peripheral edema: diffuse ecchymosis and edema due to protein level of 1.1, no oncotic pressure cannot improve albumin level even on tube feeds discussed with patient and her daughter that this will not improve (16) Hypokalemia: no further blood draws (17) Severe protein-calorie malnutrition: had to stop tube feeds due to elevated residuals cannot tolerate Reglan due to allergy severe diarrhea, not absorbing anything no further nutrition (18) Anemia: 8.9 no further blood draws (19) Hypophosphatemia: no further draws Subjective plan for [facility] whenever bed available spoke with daughter Grisel at the bedside patient is resting comfortably Review of Systems Unobtainable due to cognitive status (denies pain and dyspnea, won't respond to in depth questions) Physical Exam 2 Vital Signs (Past 24 Hours): Last Vital Signs Temp 36.8 C 08/14/18 07:56 Pulse 56 L 08/14/18 07:56 Resp 22 08/14/18 07:56 BP 142/69 H 08/14/18 07:56 Pulse Ox 95 08/14/18 07:56 Constitutional: + ill appearing and + thin; no acute distress Eyes: PERRL, conjunctivae normal, anicteric sclerae Neck: + abnormal visual inspection (tracheostomy in place with secretions) Respiratory: normal respiratory effort and + cough Auscultation: + diminished lung sounds (bases bilaterally) and + rhonchi (very coarse bilaterally) Cardiovascular: Rate/Rhythm: regular rate and regular rhythm Heart Sounds: normal S1 and normal S2; no murmur Extremities: + edema Gastrointestinal (Abdomen): normal bowel sounds, soft, nontender, no hepatosplenomegaly Musculoskeletal: Head/Neck/Chest: normocephalic and head atraumatic Extremities: + abnormal strength (generalized weakness) Skin: + erythema (bilateral arms and legs) Neurologic: patellar DTR's 2+ bilat, sensation intact Psychiatric: Orientation: + not alert (lethargic) Mood: + depressed mood Lymphatic: no cervical or axillary lymphadenopathy _ (1) Atrial fibrillation Atrial fibrillation type: chronic Qualified Code(s): I48.2 - Chronic atrial fibrillation (2) Depression Active/Remission status: currently active Depression Type: major depressive disorder Major depression episode severity: moderate Major depression recurrence: unspecified whether recurrent Psychotic features: Trimester: Qualified Code(s): F32.1 - Major depressive disorder, single episode, moderate (3) Hypothyroidism Hypothyroidism type: acquired Qualified Code(s): E03.9 - Hypothyroidism, unspecified (4) GERD (gastroesophageal reflux disease) Esophagitis presence: without esophagitis Qualified Code(s): K21.9 - Gastro- esophageal reflux disease without esophagitis
[2018-08-17] MEDS: MoRPHine SULFATE 10 MG/0.5 ML UDP PO PRN ×3 (06:03→18:04)
[2018-08-17] MEDS: CHECK SCOPOLAMINE PATCH PLACEMENT SCH ×3 (07:44→23:55)
--- NOTE | 2018-08-17 10:55 | Palliative Care Progress Note ---
Date of Service August 17, 2018 Assessment & Plan (1) Palliative care encounter: -The patient was placed on COMFORT MEASURES ONLY on 08/05 after lengthy discussions including the patient and her daughter, Grisel. - She continues to have PRN SL Morphine and Ativan and has been requiring 1-2 doses of Morphine daily for the past few days. Her symptoms are well controlled. -She continues to have liquid stool requiring Dignishield rectal tube. -Her breathing appears comfortable and she continues to receive humidified O2 via trach collar. -Patient is now on comfort meds only, scopolamine for excess secretions and Roxanol for air hunger, pain -Logistically, case management continues to work on a transfer to [facility]. The patient currently would not meet GIP criteria and has been evaluated by Hospice. -Palliative Performance Scale: 10% Subjective The patient was seen at her bedside and opened her eyes when I said her name. I asked if she was in pain and she nodded yes. I pointed to various parts of her body asking what hurt and it was localized to her left shoulder. No family was present during my examination. The patients breathing appears unlabored and comfortable. Patient remains on comfort measures with plans being arranged for transport back to [facility] on comfort measures. Physical Exam 2 Vital Signs (Past 24 Hours): Last Vital Signs Temp 36.8 C 08/14/18 07:56 Pulse 56 L 08/14/18 07:56 Resp 22 08/14/18 07:56 BP 142/69 H 08/14/18 07:56 Pulse Ox 95 08/14/18 07:56 Neck: trachea midline, no thyromegaly + thick neck Respiratory: Auscultation: + diminished lung sounds trach/trach collar in place Cardiovascular: Rate/Rhythm: regular rate and regular rhythm Heart Sounds: normal S1 and normal S2 pedal pulses present Gastrointestinal (Abdomen): Inspection/Auscultation: normal bowel sounds rectal tube in place with light brown liquid output Skin: skin shiny and taut, seeping has lessened Genitourinary: christian in place Time Spent Midlevel Total time spent 25 minutes with > 50% of that time assessing the patient, and discussing symptom management with the IDT
[2018-08-17] MEDS: NYSTATIN SUSP 500,000 U/5 ML UDC PO SCH (15:50)
[2018-08-17] MEDS: DICLOFENAC SOD 1% GEL 100 GM TUBE EXT SCH (15:51)
--- NOTE | 2018-08-17 23:09 | Hospitalist Progress Note ---
Date of Service August 17, 2018 Assessment & Plan (1) Acute and chronic respiratory failure with hypoxia: patient with thick secretions from trachea, respiratory status deteriorating patient no longer wants treatment would not want ventilation if breathing gets worse refusing all medications, even IV medications, does not want feedings via NGT made patient comfort care on 08/05 Atropine, Scopolamine, Ativan and Morphine PRN stop blood draws stop other medications plan for Hospice care at [facility] once bed available plan for [facility], waiting on hospice bed to be available (2) Chronic cholecystitis: US with evidence of small stones and sludge but equivocal for infection HIDA showed no evidence of cystic duct obstruction thus ruling out acute cholecystitis however, there was delayed filling of gall bladder and EF was noted to be 5% diagnosis would be chronic cholecystitis vs dykinesis d/w daughter, cannot perform surgery not really a candidate for percutaneous drain either no longer tolerating tube feeds stop Cipro/Flagyl IV (3) Hemoptysis: stop Eliquis no further bleeding (4) Candidal urinary tract infection: was on caspofungin. now discontinued (5) MANJULA (acute kidney injury): patient was dehydrated on admission Cr tamera to 3-4 but now back to baseline at 1 with IV fluids continue to monitor requiring tube feeds to stay hydrated, will stop tube feeds no further blood draws (6) Hypernatremia: resolved (7) Atrial fibrillation: rate controlled hold Amiodarone since she cannot take PO (8) Hypothyroidism: Stable. Chronic * stopped synthroid (9) Chronic diastolic CHF (congestive heart failure): euvolemic, continue to monitor volume status (10) Chronic kidney disease, stage III (moderate): As above (11) Depression: stopped celexa (12) Orthostatic hypotension: holding Midodrine since BP normal and even elevated at times (13) GERD (gastroesophageal reflux disease): stopped meds (14) Sepsis: treated for pneumonia and now will treat cholecystitis no current evidence of sepsis (15) Peripheral edema: diffuse ecchymosis and edema due to protein level of 1.1, no oncotic pressure cannot improve albumin level even on tube feeds discussed with patient and her daughter that this will not improve (16) Hypokalemia: no further blood draws (17) Severe protein-calorie malnutrition: had to stop tube feeds due to elevated residuals cannot tolerate Reglan due to allergy severe diarrhea, not absorbing anything no further nutrition (18) Anemia: 8.9 no further blood draws (19) Hypophosphatemia: no further draws Subjective plan for [facility] whenever bed available spoke with daughter Grisel at the bedside patient is resting comfortably Review of Systems Unobtainable due to cognitive status Physical Exam 2 Vital Signs (Past 24 Hours): Last Vital Signs Temp 36.8 C 08/14/18 07:56 Pulse 56 L 08/14/18 07:56 Resp 22 08/14/18 07:56 BP 142/69 H 08/14/18 07:56 Pulse Ox 95 08/14/18 07:56 Constitutional: + ill appearing and + thin; no acute distress Eyes: PERRL, conjunctivae normal, anicteric sclerae Neck: + abnormal visual inspection (tracheostomy in place with secretions) Respiratory: normal respiratory effort and + cough Auscultation: + diminished lung sounds (bases bilaterally) and + rhonchi (very coarse bilaterally) Cardiovascular: Rate/Rhythm: regular rate and regular rhythm Heart Sounds: normal S1 and normal S2; no murmur Extremities: + edema Gastrointestinal (Abdomen): normal bowel sounds, soft, nontender, no hepatosplenomegaly Musculoskeletal: Head/Neck/Chest: normocephalic and head atraumatic Extremities: + abnormal strength (generalized weakness) Skin: + erythema (bilateral arms and legs) Neurologic: patellar DTR's 2+ bilat, sensation intact Psychiatric: Orientation: + not alert (lethargic) Mood: + depressed mood Lymphatic: no cervical or axillary lymphadenopathy _ (1) Atrial fibrillation Atrial fibrillation type: chronic Qualified Code(s): I48.2 - Chronic atrial fibrillation (2) Depression Active/Remission status: currently active Depression Type: major depressive disorder Major depression episode severity: moderate Major depression recurrence: unspecified whether recurrent Psychotic features: Trimester: Qualified Code(s): F32.1 - Major depressive disorder, single episode, moderate (3) Hypothyroidism Hypothyroidism type: acquired Qualified Code(s): E03.9 - Hypothyroidism, unspecified (4) GERD (gastroesophageal reflux disease) Esophagitis presence: without esophagitis Qualified Code(s): K21.9 - Gastro- esophageal reflux disease without esophagitis
[2018-08-18] MEDS: MoRPHine SULFATE 10 MG/0.5 ML UDP PO PRN ×3 (03:01→15:44)
[2018-08-18] MEDS: CHECK SCOPOLAMINE PATCH PLACEMENT SCH ×2 (08:01→15:39)
--- NOTE | 2018-08-18 15:56 | Hospitalist Progress Note ---
Date of Service August 18, 2018 Assessment & Plan (1) Acute and chronic respiratory failure with hypoxia: patient with thick secretions from trachea, respiratory status deteriorating patient no longer wants treatment would not want ventilation if breathing gets worse refusing all medications, even IV medications, does not want feedings via NGT made patient comfort care on 08/05 Atropine, Scopolamine, Ativan and Morphine PRN stop blood draws stop other medications plan for Hospice care at [facility] once bed available plan for [facility], waiting on hospice bed to be available likely not this weekend (2) Chronic cholecystitis: US with evidence of small stones and sludge but equivocal for infection HIDA showed no evidence of cystic duct obstruction thus ruling out acute cholecystitis however, there was delayed filling of gall bladder and EF was noted to be 5% diagnosis would be chronic cholecystitis vs dykinesis d/w daughter, cannot perform surgery not really a candidate for percutaneous drain either no longer tolerating tube feeds stop Cipro/Flagyl IV (3) Hemoptysis: stop Eliquis no further bleeding (4) Candidal urinary tract infection: was on caspofungin. now discontinued (5) MANJULA (acute kidney injury): patient was dehydrated on admission Cr tamera to 3-4 but now back to baseline at 1 with IV fluids continue to monitor requiring tube feeds to stay hydrated, will stop tube feeds no further blood draws (6) Hypernatremia: resolved (7) Atrial fibrillation: rate controlled hold Amiodarone since she cannot take PO (8) Hypothyroidism: Stable. Chronic * stopped synthroid (9) Chronic diastolic CHF (congestive heart failure): euvolemic, continue to monitor volume status (10) Chronic kidney disease, stage III (moderate): As above (11) Depression: stopped celexa (12) Orthostatic hypotension: holding Midodrine since BP normal and even elevated at times (13) GERD (gastroesophageal reflux disease): stopped meds (14) Sepsis: treated for pneumonia and now will treat cholecystitis no current evidence of sepsis (15) Peripheral edema: diffuse ecchymosis and edema due to protein level of 1.1, no oncotic pressure cannot improve albumin level even on tube feeds discussed with patient and her daughter that this will not improve (16) Hypokalemia: no further blood draws (17) Severe protein-calorie malnutrition: had to stop tube feeds due to elevated residuals cannot tolerate Reglan due to allergy severe diarrhea, not absorbing anything no further nutrition (18) Anemia: 8.9 no further blood draws (19) Hypophosphatemia: no further draws Subjective patient resting comfortably Review of Systems Unobtainable due to reduced consciousness Physical Exam 2 Vital Signs (Past 24 Hours): Last Vital Signs Temp 36.8 C 08/14/18 07:56 Pulse 56 L 08/14/18 07:56 Resp 22 08/14/18 07:56 BP 142/69 H 08/14/18 07:56 Pulse Ox 95 08/14/18 07:56 Constitutional: + ill appearing and + thin; no acute distress Eyes: PERRL, conjunctivae normal, anicteric sclerae Neck: + abnormal visual inspection (tracheostomy in place with secretions) Respiratory: normal respiratory effort and + cough Auscultation: + diminished lung sounds (bases bilaterally) and + rhonchi (very coarse bilaterally) Cardiovascular: Rate/Rhythm: regular rate and regular rhythm Heart Sounds: normal S1 and normal S2; no murmur Extremities: + edema Gastrointestinal (Abdomen): normal bowel sounds, soft, nontender, no hepatosplenomegaly Musculoskeletal: Head/Neck/Chest: normocephalic and head atraumatic Extremities: + abnormal strength (generalized weakness) Skin: + erythema (bilateral arms and legs) Neurologic: patellar DTR's 2+ bilat, sensation intact Psychiatric: Orientation: + not alert (lethargic) Mood: + depressed mood Lymphatic: no cervical or axillary lymphadenopathy _ (1) Atrial fibrillation Atrial fibrillation type: chronic Qualified Code(s): I48.2 - Chronic atrial fibrillation (2) Depression Active/Remission status: currently active Depression Type: major depressive disorder Major depression episode severity: moderate Major depression recurrence: unspecified whether recurrent Psychotic features: Trimester: Qualified Code(s): F32.1 - Major depressive disorder, single episode, moderate (3) Hypothyroidism Hypothyroidism type: acquired Qualified Code(s): E03.9 - Hypothyroidism, unspecified (4) GERD (gastroesophageal reflux disease) Esophagitis presence: without esophagitis Qualified Code(s): K21.9 - Gastro- esophageal reflux disease without esophagitis
[2018-08-19] MEDS: CHECK SCOPOLAMINE PATCH PLACEMENT SCH ×3 (00:45→16:00)
[2018-08-19] MEDS: MoRPHine SULFATE 10 MG/0.5 ML UDP PO PRN ×2 (09:00→21:16)
--- NOTE | 2018-08-19 15:16 | Hospitalist Progress Note ---
Date of Service August 19, 2018 Assessment & Plan (1) Acute and chronic respiratory failure with hypoxia: patient with thick secretions from trachea, respiratory status deteriorating patient no longer wants treatment would not want ventilation if breathing gets worse refusing all medications, even IV medications, does not want feedings via NGT made patient comfort care on 08/05 Atropine, Scopolamine, Ativan and Morphine PRN stop blood draws stop other medications plan for Hospice care at [facility] once bed available plan for [facility], waiting on hospice bed to be available hopeful that bed will be available tomorrow patient will likely pass within the week (2) Chronic cholecystitis: US with evidence of small stones and sludge but equivocal for infection HIDA showed no evidence of cystic duct obstruction thus ruling out acute cholecystitis however, there was delayed filling of gall bladder and EF was noted to be 5% diagnosis would be chronic cholecystitis vs dykinesis d/w daughter, cannot perform surgery not really a candidate for percutaneous drain either no longer tolerating tube feeds stop Cipro/Flagyl IV (3) Hemoptysis: stop Eliquis no further bleeding (4) Candidal urinary tract infection: was on caspofungin. now discontinued (5) MANJULA (acute kidney injury): patient was dehydrated on admission Cr tamera to 3-4 but now back to baseline at 1 with IV fluids continue to monitor requiring tube feeds to stay hydrated, will stop tube feeds no further blood draws (6) Hypernatremia: resolved (7) Atrial fibrillation: rate controlled hold Amiodarone since she cannot take PO (8) Hypothyroidism: Stable. Chronic * stopped synthroid (9) Chronic diastolic CHF (congestive heart failure): euvolemic, continue to monitor volume status (10) Chronic kidney disease, stage III (moderate): As above (11) Depression: stopped celexa (12) Orthostatic hypotension: holding Midodrine since BP normal and even elevated at times (13) GERD (gastroesophageal reflux disease): stopped meds (14) Sepsis: treated for pneumonia and now will treat cholecystitis no current evidence of sepsis (15) Peripheral edema: diffuse ecchymosis and edema due to protein level of 1.1, no oncotic pressure cannot improve albumin level even on tube feeds discussed with patient and her daughter that this will not improve (16) Hypokalemia: no further blood draws (17) Severe protein-calorie malnutrition: had to stop tube feeds due to elevated residuals cannot tolerate Reglan due to allergy severe diarrhea, not absorbing anything no further nutrition (18) Anemia: 8.9 no further blood draws (19) Hypophosphatemia: no further draws Subjective resting comfortably no new issues according to RN Physical Exam 2 Vital Signs (Past 24 Hours): Last Vital Signs Temp 36.8 C 08/14/18 07:56 Pulse 56 L 08/14/18 07:56 Resp 22 08/14/18 07:56 BP 142/69 H 08/14/18 07:56 Pulse Ox 95 08/14/18 07:56 Constitutional: + ill appearing and + thin; no acute distress Eyes: PERRL, conjunctivae normal, anicteric sclerae Neck: + abnormal visual inspection (tracheostomy in place with secretions) Respiratory: normal respiratory effort and + cough Auscultation: + diminished lung sounds (bases bilaterally) and + rhonchi (very coarse bilaterally) Cardiovascular: Rate/Rhythm: regular rate and regular rhythm Heart Sounds: normal S1 and normal S2; no murmur Extremities: + edema Gastrointestinal (Abdomen): normal bowel sounds, soft, nontender, no hepatosplenomegaly Musculoskeletal: Head/Neck/Chest: normocephalic and head atraumatic Extremities: + abnormal strength (generalized weakness) Skin: + erythema (bilateral arms and legs) Neurologic: patellar DTR's 2+ bilat, sensation intact Psychiatric: Orientation: + not alert (lethargic) Mood: + depressed mood Lymphatic: no cervical or axillary lymphadenopathy _ (1) Atrial fibrillation Atrial fibrillation type: chronic Qualified Code(s): I48.2 - Chronic atrial fibrillation (2) Hypothyroidism Hypothyroidism type: acquired Qualified Code(s): E03.9 - Hypothyroidism, unspecified (3) Depression Depression Type: major depressive disorder Major depression recurrence: unspecified whether recurrent Active/Remission status: currently active Major depression episode severity: moderate Psychotic features: Trimester: Qualified Code(s): F32.1 - Major depressive disorder, single episode, moderate (4) GERD (gastroesophageal reflux disease) Esophagitis presence: without esophagitis Qualified Code(s): K21.9 - Gastro- esophageal reflux disease without esophagitis
[2018-08-19] MEDS: SCOPOLAMINE 1.5 MG TDSY TD SCH (17:59)
[2018-08-20] MEDS: CHECK SCOPOLAMINE PATCH PLACEMENT SCH ×3 (00:30→15:45)
[2018-08-20] MEDS: LORazepam 0.5 MG/1 ML VIAL IV PRN (00:48)
[2018-08-20] MEDS: MoRPHine SULFATE 10 MG/0.5 ML UDP PO PRN ×3 (07:53→13:50)
[2018-08-20] MEDS ORDERED: MoRPHine SULFATE 2 MG/ML CARP IV STA (08:35)
[2018-08-21] MEDS: CHECK SCOPOLAMINE PATCH PLACEMENT SCH ×3 (00:09→17:29)
--- NOTE | 2018-08-21 09:05 | Hospitalist Progress Note ---
Date of Service August 20, 2018 Assessment & Plan (1) Acute and chronic respiratory failure with hypoxia: patient with thick secretions from trachea, respiratory status deteriorating patient no longer wants treatment would not want ventilation if breathing gets worse refusing all medications, even IV medications, does not want feedings via NGT made patient comfort care on 08/05 Atropine, Scopolamine, Ativan and Morphine PRN stop blood draws stop other medications 08/20 plan for Hospice care at [facility] once bed available plan for [facility], waiting on hospice bed to be available hopeful that bed sometime this week patient will likely pass within the week (2) Chronic cholecystitis: US with evidence of small stones and sludge but equivocal for infection HIDA showed no evidence of cystic duct obstruction thus ruling out acute cholecystitis however, there was delayed filling of gall bladder and EF was noted to be 5% diagnosis would be chronic cholecystitis vs dykinesis d/w daughter, cannot perform surgery not really a candidate for percutaneous drain either no longer tolerating tube feeds stop Cipro/Flagyl IV (3) Hemoptysis: stop Eliquis no further bleeding (4) Candidal urinary tract infection: was on caspofungin. now discontinued (5) MANJULA (acute kidney injury): patient was dehydrated on admission Cr tamera to 3-4 but now back to baseline at 1 with IV fluids continue to monitor requiring tube feeds to stay hydrated, will stop tube feeds no further blood draws (6) Hypernatremia: resolved (7) Atrial fibrillation: rate controlled hold Amiodarone since she cannot take PO (8) Hypothyroidism: Stable. Chronic * stopped synthroid (9) Chronic diastolic CHF (congestive heart failure): euvolemic, continue to monitor volume status (10) Chronic kidney disease, stage III (moderate): As above (11) Depression: stopped celexa (12) Orthostatic hypotension: holding Midodrine since BP normal and even elevated at times (13) GERD (gastroesophageal reflux disease): stopped meds (14) Sepsis: treated for pneumonia and now will treat cholecystitis no current evidence of sepsis (15) Peripheral edema: diffuse ecchymosis and edema due to protein level of 1.1, no oncotic pressure cannot improve albumin level even on tube feeds discussed with patient and her daughter that this will not improve (16) Hypokalemia: no further blood draws (17) Severe protein-calorie malnutrition: had to stop tube feeds due to elevated residuals cannot tolerate Reglan due to allergy severe diarrhea, not absorbing anything no further nutrition (18) Anemia: 8.9 no further blood draws (19) Hypophosphatemia: no further draws Spent 25 minutes in management of case, this included reviewing past 7 days of hospital stay. Subjective Patient appears to be resting comfortably. Earlier today, patient was agitated. Morphine was given. Constitutional: + fatigue and + weakness Respiratory: + cough and + sputum production Cardiovascular: + dyspnea Gastrointestinal: + dysphagia (aspirating) and + diarrhea/loose stools Integumentary: + rash, + lesions and + skin swelling (diffuse edema) Neurologic: + generalized weakness Physical Exam 2 Vital Signs (Past 24 Hours): Last Vital Signs Temp 36.8 C 08/14/18 07:56 Pulse 56 L 08/14/18 07:56 Resp 22 08/14/18 07:56 BP 142/69 H 08/14/18 07:56 Pulse Ox 95 08/14/18 07:56 Physical Exam: Constitutional: + ill appearing and + thin; no acute distress Eyes: PERRL, conjunctivae normal, anicteric sclerae Neck: + abnormal visual inspection (tracheostomy in place with secretions) Respiratory: normal respiratory effort and + cough Auscultation: + diminished lung sounds (bases bilaterally) and + rhonchi (very coarse bilaterally) Cardiovascular: Rate/Rhythm: regular rate and regular rhythm Heart Sounds: normal S1 and normal S2; no murmur Extremities: + edema Gastrointestinal (Abdomen): normal bowel sounds, soft, nontender, no hepatosplenomegaly Musculoskeletal: Head/Neck/Chest: normocephalic and head atraumatic Extremities: + abnormal strength (generalized weakness) Skin: + erythema (bilateral arms and legs) Neurologic: patellar DTR's 2+ bilat, sensation intact Psychiatric: Orientation: + not alert (lethargic) Mood: + depressed mood Lymphatic: no cervical or axillary lymphadenopathy _ (1) Atrial fibrillation Atrial fibrillation type: chronic Qualified Code(s): I48.2 - Chronic atrial fibrillation (2) Hypothyroidism Hypothyroidism type: acquired Qualified Code(s): E03.9 - Hypothyroidism, unspecified (3) Depression Depression Type: major depressive disorder Major depression recurrence: unspecified whether recurrent Active/Remission status: currently active Major depression episode severity: moderate Psychotic features: Trimester: Qualified Code(s): F32.1 - Major depressive disorder, single episode, moderate (4) GERD (gastroesophageal reflux disease) Esophagitis presence: without esophagitis Qualified Code(s): K21.9 - Gastro- esophageal reflux disease without esophagitis
[2018-08-21] MEDS: MoRPHine SULFATE 10 MG/0.5 ML UDP PO PRN ×3 (09:19→22:29)
--- NOTE | 2018-08-21 22:27 | Hospitalist Progress Note ---
Date of Service August 21, 2018 Assessment & Plan (1) Acute and chronic respiratory failure with hypoxia: patient with thick secretions from trachea, respiratory status deteriorating patient no longer wants treatment would not want ventilation if breathing gets worse refusing all medications, even IV medications, does not want feedings via NGT made patient comfort care on 08/05 Atropine, Scopolamine, Ativan and Morphine PRN stop blood draws stop other medications 08/21 plan for Hospice care at [facility] once bed available plan for [facility], waiting on hospice bed to be available hopeful that bed sometime this week patient will likely pass within the week (2) Chronic cholecystitis: US with evidence of small stones and sludge but equivocal for infection HIDA showed no evidence of cystic duct obstruction thus ruling out acute cholecystitis however, there was delayed filling of gall bladder and EF was noted to be 5% diagnosis would be chronic cholecystitis vs dykinesis d/w daughter, cannot perform surgery not really a candidate for percutaneous drain either no longer tolerating tube feeds stop Cipro/Flagyl IV (3) Hemoptysis: stop Eliquis no further bleeding (4) Candidal urinary tract infection: was on caspofungin. now discontinued (5) MANJULA (acute kidney injury): patient was dehydrated on admission Cr tamera to 3-4 but now back to baseline at 1 with IV fluids continue to monitor requiring tube feeds to stay hydrated, will stop tube feeds no further blood draws (6) Hypernatremia: resolved (7) Atrial fibrillation: rate controlled hold Amiodarone since she cannot take PO (8) Hypothyroidism: Stable. Chronic * stopped synthroid (9) Chronic diastolic CHF (congestive heart failure): euvolemic, continue to monitor volume status (10) Chronic kidney disease, stage III (moderate): As above (11) Depression: stopped celexa (12) Orthostatic hypotension: holding Midodrine since BP normal and even elevated at times (13) GERD (gastroesophageal reflux disease): stopped meds (14) Sepsis: treated for pneumonia and now will treat cholecystitis no current evidence of sepsis (15) Peripheral edema: diffuse ecchymosis and edema due to protein level of 1.1, no oncotic pressure cannot improve albumin level even on tube feeds discussed with patient and her daughter that this will not improve (16) Hypokalemia: no further blood draws (17) Severe protein-calorie malnutrition: had to stop tube feeds due to elevated residuals cannot tolerate Reglan due to allergy severe diarrhea, not absorbing anything no further nutrition (18) Anemia: 8.9 no further blood draws (19) Hypophosphatemia: no further draws Subjective Patient appears to be resting well today. Patient does not provide signifcant history today. Unable to obtain ROS. Physical Exam 2 Vital Signs (Past 24 Hours): Last Vital Signs Temp 36.8 C 08/14/18 07:56 Pulse 56 L 08/14/18 07:56 Resp 22 08/14/18 07:56 BP 142/69 H 08/14/18 07:56 Pulse Ox 95 08/14/18 07:56 Physical Exam: Constitutional: + ill appearing and + thin; no acute distress Eyes: PERRL, conjunctivae normal, anicteric sclerae Neck: + abnormal visual inspection (tracheostomy in place with secretions) Respiratory: normal respiratory effort and + cough Auscultation: + diminished lung sounds (bases bilaterally) Cardiovascular: Rate/Rhythm: regular rate and regular rhythm Heart Sounds: normal S1 and normal S2; no murmur Extremities: + edema Gastrointestinal (Abdomen): normal bowel sounds, soft, nontender, no hepatosplenomegaly Musculoskeletal: Head/Neck/Chest: normocephalic and head atraumatic Extremities: + abnormal strength (generalized weakness) Skin: + erythema (bilateral arms and legs) Neurologic: patellar DTR's 2+ bilat, sensation intact Psychiatric: Orientation: + not alert (lethargic) Lymphatic: no cervical or axillary lymphadenopathy _ (1) Atrial fibrillation Atrial fibrillation type: chronic Qualified Code(s): I48.2 - Chronic atrial fibrillation (2) Depression Active/Remission status: currently active Depression Type: major depressive disorder Major depression episode severity: moderate Major depression recurrence: unspecified whether recurrent Psychotic features: Trimester: Qualified Code(s): F32.1 - Major depressive disorder, single episode, moderate (3) Hypothyroidism Hypothyroidism type: acquired Qualified Code(s): E03.9 - Hypothyroidism, unspecified (4) GERD (gastroesophageal reflux disease) Esophagitis presence: without esophagitis Qualified Code(s): K21.9 - Gastro- esophageal reflux disease without esophagitis
[2018-08-22] MEDS: CHECK SCOPOLAMINE PATCH PLACEMENT SCH ×3 (01:37→16:37)
[2018-08-22] MEDS ORDERED: Nursing to Pharmacy Communication ONE (16:23)
[2018-08-22] MEDS: MoRPHine SULFATE 10 MG/0.5 ML UDP PO PRN (16:36)
[2018-08-22] MEDS: SCOPOLAMINE 1.5 MG TDSY TD SCH (17:45)
--- NOTE | 2018-08-22 18:38 | Hospitalist Progress Note ---
Date of Service August 22, 2018 Assessment & Plan (1) Acute and chronic respiratory failure with hypoxia: patient with thick secretions from trachea, respiratory status deteriorating patient no longer wants treatment would not want ventilation if breathing gets worse refusing all medications, even IV medications, does not want feedings via NGT made patient comfort care on 08/05 Atropine, Scopolamine, Ativan and Morphine PRN stop blood draws stop other medications 08/22 plan for Hospice care at [facility] once bed available plan for [facility], waiting on hospice bed to be available hopeful that bed sometime this week patient will likely pass within the week (2) Chronic cholecystitis: US with evidence of small stones and sludge but equivocal for infection HIDA showed no evidence of cystic duct obstruction thus ruling out acute cholecystitis however, there was delayed filling of gall bladder and EF was noted to be 5% diagnosis would be chronic cholecystitis vs dykinesis d/w daughter, cannot perform surgery not really a candidate for percutaneous drain either no longer tolerating tube feeds stop Cipro/Flagyl IV (3) Hemoptysis: stop Eliquis no further bleeding (4) Candidal urinary tract infection: was on caspofungin. now discontinued (5) MANJULA (acute kidney injury): patient was dehydrated on admission Cr tamera to 3-4 but now back to baseline at 1 with IV fluids continue to monitor requiring tube feeds to stay hydrated, will stop tube feeds no further blood draws (6) Hypernatremia: resolved (7) Atrial fibrillation: rate controlled hold Amiodarone since she cannot take PO (8) Hypothyroidism: Stable. Chronic * stopped synthroid (9) Chronic diastolic CHF (congestive heart failure): euvolemic, continue to monitor volume status (10) Chronic kidney disease, stage III (moderate): As above (11) Depression: stopped celexa (12) Orthostatic hypotension: holding Midodrine since BP normal and even elevated at times (13) GERD (gastroesophageal reflux disease): stopped meds (14) Sepsis: treated for pneumonia and now will treat cholecystitis no current evidence of sepsis (15) Peripheral edema: diffuse ecchymosis and edema due to protein level of 1.1, no oncotic pressure cannot improve albumin level even on tube feeds discussed with patient and her daughter that this will not improve (16) Hypokalemia: no further blood draws (17) Severe protein-calorie malnutrition: had to stop tube feeds due to elevated residuals cannot tolerate Reglan due to allergy severe diarrhea, not absorbing anything no further nutrition (18) Anemia: 8.9 no further blood draws (19) Hypophosphatemia: no further draws Subjective Patient appears to be resting well today. Patient does not provide signifcant history today as she remains lethargic. She continues to await placement. Unable to obtain ROS. Constitutional: + fatigue and + weakness Respiratory: + cough and + sputum production Cardiovascular: + dyspnea Gastrointestinal: + dysphagia (aspirating) and + diarrhea/loose stools Integumentary: + rash, + lesions and + skin swelling (diffuse edema) Neurologic: + generalized weakness Physical Exam 2 Vital Signs (Past 24 Hours): Last Vital Signs Temp 36.8 C 08/14/18 07:56 Pulse 56 L 08/14/18 07:56 Resp 22 08/14/18 07:56 BP 142/69 H 08/14/18 07:56 Pulse Ox 95 08/14/18 07:56 Physical Exam: Constitutional: + ill appearing and + thin; no acute distress Eyes: PERRL, conjunctivae normal, anicteric sclerae Neck: + abnormal visual inspection (tracheostomy in place with secretions) Respiratory: normal respiratory effort and + cough Auscultation: + diminished lung sounds (bases bilaterally) Cardiovascular: Rate/Rhythm: regular rate and regular rhythm Heart Sounds: normal S1 and normal S2; no murmur Extremities: + edema Gastrointestinal (Abdomen): normal bowel sounds, soft, nontender, no hepatosplenomegaly Musculoskeletal: Head/Neck/Chest: normocephalic and head atraumatic Extremities: + abnormal strength (generalized weakness) Skin: + erythema (bilateral arms and legs) Neurologic: patellar DTR's 2+ bilat, sensation intact Psychiatric: Orientation: + not alert (lethargic) Lymphatic: no cervical or axillary lymphadenopathy _ (1) Atrial fibrillation Atrial fibrillation type: chronic Qualified Code(s): I48.2 - Chronic atrial fibrillation (2) Hypothyroidism Hypothyroidism type: acquired Qualified Code(s): E03.9 - Hypothyroidism, unspecified (3) Depression Depression Type: major depressive disorder Major depression recurrence: unspecified whether recurrent Active/Remission status: currently active Major depression episode severity: moderate Psychotic features: Trimester: Qualified Code(s): F32.1 - Major depressive disorder, single episode, moderate (4) GERD (gastroesophageal reflux disease) Esophagitis presence: without esophagitis Qualified Code(s): K21.9 - Gastro- esophageal reflux disease without esophagitis
[2018-08-23] MEDS: CHECK SCOPOLAMINE PATCH PLACEMENT SCH ×3 (01:04→16:56)
--- NOTE | 2018-08-23 22:17 | Hospitalist Progress Note ---
Date of Service August 23, 2018 Assessment & Plan (1) Acute and chronic respiratory failure with hypoxia: patient with thick secretions from trachea, respiratory status deteriorating patient no longer wants treatment would not want ventilation if breathing gets worse refusing all medications, even IV medications, does not want feedings via NGT made patient comfort care on 08/05 Atropine, Scopolamine, Ativan and Morphine PRN stop blood draws stop other medications 08/23 plan [facility] patient will likely pass within the week (2) Chronic cholecystitis: US with evidence of small stones and sludge but equivocal for infection HIDA showed no evidence of cystic duct obstruction thus ruling out acute cholecystitis however, there was delayed filling of gall bladder and EF was noted to be 5% diagnosis would be chronic cholecystitis vs dykinesis d/w daughter, cannot perform surgery not really a candidate for percutaneous drain either no longer tolerating tube feeds stop Cipro/Flagyl IV (3) Hemoptysis: stop Eliquis no further bleeding (4) Candidal urinary tract infection: was on caspofungin. now discontinued (5) MANJULA (acute kidney injury): patient was dehydrated on admission Cr tamera to 3-4 but now back to baseline at 1 with IV fluids continue to monitor requiring tube feeds to stay hydrated, will stop tube feeds no further blood draws (6) Hypernatremia: resolved (7) Atrial fibrillation: rate controlled hold Amiodarone since she cannot take PO (8) Hypothyroidism: Stable. Chronic * stopped synthroid (9) Chronic diastolic CHF (congestive heart failure): euvolemic, continue to monitor volume status (10) Chronic kidney disease, stage III (moderate): As above (11) Depression: stopped celexa (12) Orthostatic hypotension: holding Midodrine since BP normal and even elevated at times (13) GERD (gastroesophageal reflux disease): stopped meds (14) Sepsis: treated for pneumonia and now will treat cholecystitis no current evidence of sepsis (15) Peripheral edema: diffuse ecchymosis and edema due to protein level of 1.1, no oncotic pressure cannot improve albumin level even on tube feeds discussed with patient and her daughter that this will not improve (16) Hypokalemia: no further blood draws (17) Severe protein-calorie malnutrition: had to stop tube feeds due to elevated residuals cannot tolerate Reglan due to allergy severe diarrhea, not absorbing anything no further nutrition (18) Anemia: 8.9 no further blood draws (19) Hypophosphatemia: no further draws Subjective Patient is more awake today. When I walked in the room, patient was resting, however she awakoe with verbal stimuli and denied any new complaints. She continues to await placement. Unable to obtain ROS. Daughter was not in the room wehn I examined patient. Constitutional: + fatigue and + weakness Respiratory: + cough and + sputum production Cardiovascular: + dyspnea Gastrointestinal: + dysphagia (aspirating) and + diarrhea/loose stools Integumentary: + rash, + lesions and + skin swelling (diffuse edema) Neurologic: + generalized weakness Physical Exam 2 Vital Signs (Past 24 Hours): Last Vital Signs Temp 36.8 C 08/14/18 07:56 Pulse 56 L 08/14/18 07:56 Resp 22 08/14/18 07:56 BP 142/69 H 08/14/18 07:56 Pulse Ox 95 08/14/18 07:56 Physical Exam: Constitutional: + ill appearing and + thin; no acute distress Eyes: PERRL, conjunctivae normal, anicteric sclerae Neck: + abnormal visual inspection (tracheostomy in place with secretions) Respiratory: normal respiratory effort and + cough Auscultation: + diminished lung sounds (bases bilaterally) Cardiovascular: Rate/Rhythm: regular rate and regular rhythm Heart Sounds: normal S1 and normal S2; no murmur Extremities: + edema Gastrointestinal (Abdomen): normal bowel sounds, soft, nontender, no hepatosplenomegaly Musculoskeletal: Head/Neck/Chest: normocephalic and head atraumatic Extremities: + abnormal strength (generalized weakness) Neurologic: patellar DTR's 2+ bilat, sensation intact Psychiatric: Orientation: awake, alert Lymphatic: no cervical or axillary lymphadenopathy _ (1) Atrial fibrillation Atrial fibrillation type: chronic Qualified Code(s): I48.2 - Chronic atrial fibrillation (2) Depression Active/Remission status: currently active Depression Type: major depressive disorder Major depression episode severity: moderate Major depression recurrence: unspecified whether recurrent Psychotic features: Trimester: Qualified Code(s): F32.1 - Major depressive disorder, single episode, moderate (3) Hypothyroidism Hypothyroidism type: acquired Qualified Code(s): E03.9 - Hypothyroidism, unspecified (4) GERD (gastroesophageal reflux disease) Esophagitis presence: without esophagitis Qualified Code(s): K21.9 - Gastro- esophageal reflux disease without esophagitis
[2018-08-24] MEDS: CHECK SCOPOLAMINE PATCH PLACEMENT SCH ×4 (00:37→23:29)
[2018-08-24] MEDS: MoRPHine SULFATE 10 MG/0.5 ML UDP PO PRN ×3 (08:46→17:03)
--- NOTE | 2018-08-24 13:08 | Palliative Care Progress Note ---
Date of Service August 24, 2018 Assessment & Plan (1) Palliative care encounter: -The patient was placed on COMFORT MEASURES ONLY on 08/05 after lengthy discussions including the patient and her daughter, Grisel. - She continues to have PRN SL Morphine and Ativan and has been requiring 1-2 doses of Morphine daily for the past few days. -Based on her continuous worsening of her sacral wound, I will schedule her Roxanol to 10 mg po BID and continue to have PRN availability as well. -Her breathing appears comfortable and she continues to receive humidified O2 via trach collar. -Patient is now on comfort meds only, scopolamine for excess secretions and Roxanol for air hunger, pain -Logistically, case management continues to work on a transfer to [facility]. Currently, I do not feel the patient would meet GIP requirement; however, I would -Palliative Performance Scale: 10% Subjective The patient was seen at her bedside and opened her eyes when I said her name. I asked if she was in pain and she shook her head no. She had just received a dose of Roxanol. The patients daughter, Grisel, was present at her bedside. 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 The patient is receiving Roxanol infrequently. I do not feel the patient has the ability to fully understand the complexity of her illness and may not be able to ask for pain medications. The patient appears to have a furrowed brow consistently; therefore, I discussed with Grisel about having the Roxanol scheduled throughout the day and she is in support of this. The patient has been refusing turns. The patients breathing appears unlabored and comfortable. Patient remains on comfort measures with plans to be transferred to a SN[facility] on [facility] pending bed availability. Case management working on placement. Physical Exam 2 Vital Signs (Past 24 Hours): Last Vital Signs Temp 36.8 C 08/14/18 07:56 Pulse 56 L 08/14/18 07:56 Resp 22 08/14/18 07:56 BP 142/69 H 08/14/18 07:56 Pulse Ox 95 08/14/18 07:56 Neck: trachea midline, no thyromegaly + thick neck Respiratory: Auscultation: + diminished lung sounds Cardiovascular: Rate/Rhythm: regular rate and regular rhythm Heart Sounds: normal S1 and normal S2 Extremities: + edema (trace edema ) Gastrointestinal (Abdomen): Inspection/Auscultation: normal bowel sounds Skin: + mottling (some noted around b/l knees and heels) Psychiatric: A+Ox3, euthymic affect (Pt opened eyes to her name and nodded yes to pain question and if she wanted to listed to music) Eye Contact: + fair eye contact (This fluctuates daily) Time Spent Midlevel Total time spent 25 minutes with > 50% of that time spent reviewing the chart, assessing the patient and discussing symptom management with the patients daughter and IDT.
[2018-08-24] MEDS: MoRPHine SULFATE 10 MG/0.5 ML UDP PO SCH (20:36)
[2018-08-24] MEDS ORDERED: MoRPHine SULFATE 10 MG/0.5 ML UDP PO PRN (21:00)
--- NOTE | 2018-08-24 23:02 | Hospitalist Progress Note ---
Date of Service August 24, 2018 Assessment & Plan (1) Acute and chronic respiratory failure with hypoxia: patient with thick secretions from trachea, respiratory status deteriorating patient no longer wants treatment would not want ventilation if breathing gets worse refusing all medications, even IV medications, does not want feedings via NGT made patient comfort care on 08/05 Atropine, Scopolamine, Ativan and Morphine PRN stop blood draws stop other medications 08/24 It appears we are getting headway with discharge. Patient will likely be going to [facility] over weekend or sometime during the week. D/W halle Estrella who is concerned that staff on weekends is less. Palliative care ordered: Roxanol to 10 mg po BID and PRN (2) Chronic cholecystitis: US with evidence of small stones and sludge but equivocal for infection HIDA showed no evidence of cystic duct obstruction thus ruling out acute cholecystitis however, there was delayed filling of gall bladder and EF was noted to be 5% diagnosis would be chronic cholecystitis vs dykinesis d/w daughter, cannot perform surgery not really a candidate for percutaneous drain either no longer tolerating tube feeds stop Cipro/Flagyl IV (3) Hemoptysis: stop Eliquis no further bleeding (4) Candidal urinary tract infection: was on caspofungin. now discontinued (5) MANJULA (acute kidney injury): patient was dehydrated on admission Cr tamera to 3-4 but now back to baseline at 1 with IV fluids continue to monitor requiring tube feeds to stay hydrated, will stop tube feeds no further blood draws (6) Hypernatremia: resolved (7) Atrial fibrillation: rate controlled hold Amiodarone since she cannot take PO (8) Hypothyroidism: Stable. Chronic * stopped synthroid (9) Chronic diastolic CHF (congestive heart failure): euvolemic, continue to monitor volume status (10) Chronic kidney disease, stage III (moderate): As above (11) Depression: stopped celexa (12) Orthostatic hypotension: holding Midodrine since BP normal and even elevated at times (13) GERD (gastroesophageal reflux disease): stopped meds (14) Sepsis: treated for pneumonia and now will treat cholecystitis no current evidence of sepsis (15) Peripheral edema: diffuse ecchymosis and edema due to protein level of 1.1, no oncotic pressure cannot improve albumin level even on tube feeds discussed with patient and her daughter that this will not improve (16) Hypokalemia: no further blood draws (17) Severe protein-calorie malnutrition: had to stop tube feeds due to elevated residuals cannot tolerate Reglan due to allergy severe diarrhea, not absorbing anything no further nutrition (18) Anemia: 8.9 no further blood draws (19) Hypophosphatemia: no further draws Spent 25 minutes in management of patient. Subjective Patient reports no new complaints. She states that she is not in pain. D/W nurse and palliative care team, patient has been refusing oral care and turns. Cardiovascular: + dyspnea Physical Exam 2 Vital Signs (Past 24 Hours): Last Vital Signs Temp 36.8 C 08/14/18 07:56 Pulse 56 L 08/14/18 07:56 Resp 22 08/14/18 07:56 BP 142/69 H 08/14/18 07:56 Pulse Ox 95 08/14/18 07:56 Physical Exam: Constitutional: + ill appearing and + thin; no acute distress Eyes: PERRL, conjunctivae normal, anicteric sclerae Neck: + abnormal visual inspection (tracheostomy in place with secretions) Respiratory: normal respiratory effort and + cough Auscultation: + diminished lung sounds (bases bilaterally) Cardiovascular: Rate/Rhythm: regular rate and regular rhythm Heart Sounds: normal S1 and normal S2; no murmur Extremities: + edema Gastrointestinal (Abdomen): normal bowel sounds, soft, nontender, no hepatosplenomegaly Musculoskeletal: Head/Neck/Chest: normocephalic and head atraumatic Extremities: + abnormal strength (generalized weakness) Neurologic: patellar DTR's 2+ bilat, sensation intact Psychiatric: Orientation: awake, alert Lymphatic: no cervical or axillary lymphadenopathy skin: there appears to be mottling on her knees. _ (1) Atrial fibrillation Atrial fibrillation type: chronic Qualified Code(s): I48.2 - Chronic atrial fibrillation (2) Hypothyroidism Hypothyroidism type: acquired Qualified Code(s): E03.9 - Hypothyroidism, unspecified (3) Depression Depression Type: major depressive disorder Major depression recurrence: unspecified whether recurrent Active/Remission status: currently active Major depression episode severity: moderate Psychotic features: Trimester: Qualified Code(s): F32.1 - Major depressive disorder, single episode, moderate (4) GERD (gastroesophageal reflux disease) Esophagitis presence: without esophagitis Qualified Code(s): K21.9 - Gastro- esophageal reflux disease without esophagitis
[2018-08-25] MEDS: CHECK SCOPOLAMINE PATCH PLACEMENT SCH ×2 (07:58→18:00)
[2018-08-25] MEDS: MoRPHine SULFATE 10 MG/0.5 ML UDP PO SCH ×2 (09:19→21:08)
[2018-08-25] MEDS: MoRPHine SULFATE 10 MG/0.5 ML UDP PO PRN (11:31)
[2018-08-25] MEDS: LORazepam 0.5 MG/1 ML VIAL IV PRN (12:01)
[2018-08-25] MEDS ORDERED: MoRPHine SULFATE 2 MG/ML CARP IV STA (12:19)
[2018-08-25] MEDS ORDERED: MoRPHine SULFATE 2 MG/ML CARP ONE (12:25)
[2018-08-25] MEDS ORDERED: MoRPHine SULFATE 2 MG/ML CARP IV PRN (13:28)
[2018-08-25] MEDS: SCOPOLAMINE 1.5 MG TDSY TD SCH (18:01)
--- NOTE | 2018-08-25 23:11 | Hospitalist Progress Note ---
Date of Service August 25, 2018 Assessment & Plan (1) Acute and chronic respiratory failure with hypoxia: patient with thick secretions from trachea, respiratory status deteriorating patient no longer wants treatment would not want ventilation if breathing gets worse refusing all medications, even IV medications, does not want feedings via NGT made patient comfort care on 08/05 Atropine, Scopolamine, Ativan and Morphine PRN stop blood draws stop other medications 08/24 It appears we are getting headway with discharge. Patient will likely be going to [facility] [place] over weekend or sometime during the week. D/W halle Estrella who is concerned that staff on weekends is less. Palliative care ordered: Roxanol to 10 mg po BID and PRN 08/25 No changes awaiting for monday for possible discharge to [facility] [place]. (2) Chronic cholecystitis: US with evidence of small stones and sludge but equivocal for infection HIDA showed no evidence of cystic duct obstruction thus ruling out acute cholecystitis however, there was delayed filling of gall bladder and EF was noted to be 5% diagnosis would be chronic cholecystitis vs dykinesis d/w daughter, cannot perform surgery not really a candidate for percutaneous drain either no longer tolerating tube feeds stop Cipro/Flagyl IV (3) Hemoptysis: stop Eliquis no further bleeding (4) Candidal urinary tract infection: was on caspofungin. now discontinued (5) MANJULA (acute kidney injury): patient was dehydrated on admission Cr tamera to 3-4 but now back to baseline at 1 with IV fluids continue to monitor requiring tube feeds to stay hydrated, will stop tube feeds no further blood draws (6) Hypernatremia: resolved (7) Atrial fibrillation: rate controlled hold Amiodarone since she cannot take PO (8) Hypothyroidism: Stable. Chronic * stopped synthroid (9) Chronic diastolic CHF (congestive heart failure): euvolemic, continue to monitor volume status (10) Chronic kidney disease, stage III (moderate): As above (11) Depression: stopped celexa (12) Orthostatic hypotension: holding Midodrine since BP normal and even elevated at times (13) GERD (gastroesophageal reflux disease): stopped meds (14) Sepsis: treated for pneumonia and now will treat cholecystitis no current evidence of sepsis (15) Peripheral edema: diffuse ecchymosis and edema due to protein level of 1.1, no oncotic pressure cannot improve albumin level even on tube feeds discussed with patient and her daughter that this will not improve (16) Hypokalemia: no further blood draws (17) Severe protein-calorie malnutrition: had to stop tube feeds due to elevated residuals cannot tolerate Reglan due to allergy severe diarrhea, not absorbing anything no further nutrition (18) Anemia: 8.9 no further blood draws (19) Hypophosphatemia: no further draws Subjective Patient reports no new complaints. She states that she is not in pain. Constitutional: + fatigue and + weakness Respiratory: + cough and + sputum production Cardiovascular: + dyspnea Gastrointestinal: + dysphagia (aspirating) and + diarrhea/loose stools Integumentary: + rash, + lesions and + skin swelling (diffuse edema) Neurologic: + generalized weakness Physical Exam 2 Vital Signs (Past 24 Hours): Last Vital Signs Temp 36.8 C 08/14/18 07:56 Pulse 56 L 08/14/18 07:56 Resp 22 08/14/18 07:56 BP 142/69 H 08/14/18 07:56 Pulse Ox 95 08/14/18 07:56 Physical Exam: Constitutional: + ill appearing and + thin; no acute distress Eyes: PERRL, conjunctivae normal, anicteric sclerae Neck: + abnormal visual inspection (tracheostomy in place with secretions) Respiratory: normal respiratory effort and + cough Auscultation: + diminished lung sounds (bases bilaterally) Cardiovascular: Rate/Rhythm: regular rate and regular rhythm Heart Sounds: normal S1 and normal S2; no murmur Extremities: + edema Gastrointestinal (Abdomen): normal bowel sounds, soft, nontender, no hepatosplenomegaly Musculoskeletal: Head/Neck/Chest: normocephalic and head atraumatic Extremities: + abnormal strength (generalized weakness) Neurologic: patellar DTR's 2+ bilat, sensation intact Psychiatric: Orientation: awake, alert Lymphatic: no cervical or axillary lymphadenopathy skin: there appears to be mottling on her knees. _ (1) Atrial fibrillation Atrial fibrillation type: chronic Qualified Code(s): I48.2 - Chronic atrial fibrillation (2) Hypothyroidism Hypothyroidism type: acquired Qualified Code(s): E03.9 - Hypothyroidism, unspecified (3) Depression Depression Type: major depressive disorder Major depression recurrence: unspecified whether recurrent Active/Remission status: currently active Major depression episode severity: moderate Psychotic features: Trimester: Qualified Code(s): F32.1 - Major depressive disorder, single episode, moderate (4) GERD (gastroesophageal reflux disease) Esophagitis presence: without esophagitis Qualified Code(s): K21.9 - Gastro- esophageal reflux disease without esophagitis
[2018-08-26] MEDS: CHECK SCOPOLAMINE PATCH PLACEMENT SCH ×3 (00:05→16:52)
[2018-08-26] MEDS: ATROPINE SULFATE 1% OP SOLN 5 ML BTL PO PRN (07:36)
[2018-08-26] MEDS: MoRPHine SULFATE 10 MG/0.5 ML UDP PO PRN (07:42)
[2018-08-26] MEDS: MoRPHine SULFATE 10 MG/0.5 ML UDP PO SCH ×2 (09:01→20:31)
--- NOTE | 2018-08-26 22:57 | Hospitalist Progress Note ---
Date of Service August 26, 2018 Assessment & Plan (1) Acute and chronic respiratory failure with hypoxia: patient with thick secretions from trachea, respiratory status deteriorating patient no longer wants treatment would not want ventilation if breathing gets worse refusing all medications, even IV medications, does not want feedings via NGT made patient comfort care on 08/05 Atropine, Scopolamine, Ativan and Morphine PRN stop blood draws stop other medications 08/24 It appears we are getting headway with discharge. Patient will likely be going to [facility] over weekend or sometime during the week. D/W halle Estrella who is concerned that staff on weekends is less. Palliative care ordered: Roxanol to 10 mg po BID and PRN 08/26 Appears more lethargic today awaiting for monday for possible discharge to [facility]. (2) Chronic cholecystitis: US with evidence of small stones and sludge but equivocal for infection HIDA showed no evidence of cystic duct obstruction thus ruling out acute cholecystitis however, there was delayed filling of gall bladder and EF was noted to be 5% diagnosis would be chronic cholecystitis vs dykinesis d/w daughter, cannot perform surgery not really a candidate for percutaneous drain either no longer tolerating tube feeds stop Cipro/Flagyl IV (3) Hemoptysis: stop Eliquis no further bleeding (4) Candidal urinary tract infection: was on caspofungin. now discontinued (5) MANJULA (acute kidney injury): patient was dehydrated on admission Cr tamera to 3-4 but now back to baseline at 1 with IV fluids continue to monitor requiring tube feeds to stay hydrated, will stop tube feeds no further blood draws (6) Hypernatremia: resolved (7) Atrial fibrillation: rate controlled hold Amiodarone since she cannot take PO (8) Hypothyroidism: Stable. Chronic * stopped synthroid (9) Chronic diastolic CHF (congestive heart failure): euvolemic, continue to monitor volume status (10) Chronic kidney disease, stage III (moderate): As above (11) Depression: stopped celexa (12) Orthostatic hypotension: holding Midodrine since BP normal and even elevated at times (13) GERD (gastroesophageal reflux disease): stopped meds (14) Sepsis: treated for pneumonia and now will treat cholecystitis no current evidence of sepsis (15) Peripheral edema: diffuse ecchymosis and edema due to protein level of 1.1, no oncotic pressure cannot improve albumin level even on tube feeds discussed with patient and her daughter that this will not improve (16) Hypokalemia: no further blood draws (17) Severe protein-calorie malnutrition: had to stop tube feeds due to elevated residuals cannot tolerate Reglan due to allergy severe diarrhea, not absorbing anything no further nutrition (18) Anemia: 8.9 no further blood draws (19) Hypophosphatemia: no further draws Subjective Patient is lethargic, does not provide new history. Constitutional: + fatigue and + weakness Respiratory: + cough and + sputum production Cardiovascular: + dyspnea Gastrointestinal: + dysphagia (aspirating) and + diarrhea/loose stools Integumentary: + rash, + lesions and + skin swelling (diffuse edema) Neurologic: + generalized weakness Physical Exam 2 Vital Signs (Past 24 Hours): Last Vital Signs Temp 36.8 C 08/14/18 07:56 Pulse 56 L 08/14/18 07:56 Resp 22 08/14/18 07:56 BP 142/69 H 08/14/18 07:56 Pulse Ox 95 08/14/18 07:56 Physical Exam: Constitutional: + ill appearing and + thin; no acute distress , more lethargic, does not respond to verbal stimuli Eyes: PERRL, conjunctivae normal, anicteric sclerae Neck: + abnormal visual inspection (tracheostomy in place with secretions) Respiratory: coarse breath sounds Cardiovascular: Rate/Rhythm: regular rate and regular rhythm Heart Sounds: normal S1 and normal S2; no murmur Extremities: + edema Gastrointestinal (Abdomen): normal bowel sounds, soft, nontender, no hepatosplenomegaly Musculoskeletal: Head/Neck/Chest: normocephalic and head atraumatic Extremities: + abnormal strength (generalized weakness) Neurologic: patellar DTR's 2+ bilat, sensation intact Psychiatric: Orientation: lethargic, does open eyes to palpation, Lymphatic: no cervical or axillary lymphadenopathy skin: there appears to be mottling on her knees. _ (1) Atrial fibrillation Atrial fibrillation type: chronic Qualified Code(s): I48.2 - Chronic atrial fibrillation (2) Hypothyroidism Hypothyroidism type: acquired Qualified Code(s): E03.9 - Hypothyroidism, unspecified (3) Depression Depression Type: major depressive disorder Major depression recurrence: unspecified whether recurrent Active/Remission status: currently active Major depression episode severity: moderate Psychotic features: Trimester: Qualified Code(s): F32.1 - Major depressive disorder, single episode, moderate (4) GERD (gastroesophageal reflux disease) Esophagitis presence: without esophagitis Qualified Code(s): K21.9 - Gastro- esophageal reflux disease without esophagitis
[2018-08-27] MEDS: CHECK SCOPOLAMINE PATCH PLACEMENT SCH ×3 (00:17→16:07)
[2018-08-27] MEDS: MoRPHine SULFATE 10 MG/0.5 ML UDP PO PRN (05:06)
[2018-08-27] MEDS: ATROPINE SULFATE 1% OP SOLN 5 ML BTL PO PRN (07:58)
[2018-08-27] MEDS: MoRPHine SULFATE 10 MG/0.5 ML UDP PO SCH ×3 (08:55→21:36)
--- NOTE | 2018-08-27 10:02 | Palliative Care Progress Note ---
Date of Service August 27, 2018 Assessment & Plan (1) Palliative care encounter: -The patient was placed on COMFORT MEASURES ONLY on 08/05 after lengthy discussions including the patient and her daughter, Grisel. - She has Roxanol 10 mg po BID scheduled with PRN availability. She has received 3 doses of additional Roxanol over the weekend. -Her breathing appears to be far more shallow with some irregularity since Monday. She continues to receive humidified O2 via trach collar which appears to be contributing to skin breakdown on her neck. -Patient HR is becoming more irregular with some tachycardia as well. -Patient is now on comfort meds only, scopolamine for excess secretions and Roxanol for air hunger, pain -The patient has been without nutrition since 08/05 but continues to produce urine. Based on her current condition, I have reservation about her being transferred as I believe there is a high risk of the patient passing away in route to [facility] (a bed is available today). We have reached out to [facility] for evaluation for [facility]. -Palliative Performance Scale: 10% Subjective The patient was seen at her bedside per nursing request. The patient has been on comfort measures since August 05, 2018. The patient is no longer opening her eyes to stimulation. I scheduled her Roxanol to BID on Monday which she has been receiving with an additional three doses of Roxanol 10 mg SL given PRN. I do not feel the patient has the ability to fully understand the complexity of her illness and may not be able to ask for pain medications. The patient's breathing has become more shallow over the weekend and her heart rate is now irregular and tachycardic. She does have some mottling around her knees, but this is unchanged from over the weekend. The patient has been without nutrition since 08/05 and continues to produce urine. Based on her current condition, I have reservation about her being transferred as I believe there is a high risk of the patient passing away in route to [facility] (a bed is available today). [facility] to [facility] for evaluation for [facility]. Physical Exam 2 Vital Signs (Past 24 Hours): Last Vital Signs Temp 36.8 C 08/14/18 07:56 Pulse 56 L 08/14/18 07:56 Resp 22 08/14/18 07:56 BP 142/69 H 08/14/18 07:56 Pulse Ox 95 11/27/18 07:56 Neck: trachea midline, no thyromegaly + thick neck Respiratory: Auscultation: + diminished lung sounds Cardiovascular: Rate/Rhythm: + tachycardic (pulse becoming more irregular) Heart Sounds: normal S1 and normal S2 Extremities: + edema (trace edema ) Gastrointestinal (Abdomen): Inspection/Auscultation: normal bowel sounds Skin: + mottling (some noted around b/l knees and heels) Psychiatric: Eye Contact: + fair eye contact (This fluctuates daily) Patient not opening her eyes today, she has a furrowed brow when I speak to her. Genitourinary: Mahoney catheter in situ - jr urine output Supervising Physician Co-Signing Physician Notes Chart reviewed, pt discussed with ROSALINA Washington - saw pt briefly - pt' s daughter in room. Daughter reports pt still responds to her. PE: pt did not respond to voice Resp: unlabored, shallow Skin: increased pallor Neuro: did not respond to voice Agree with above note, assessment and plan as per ROSALINA Washington. Agree that pt is approaching EOL and moving her could hasten her demise. Time Spent Midlevel Total time spent 35 minutes with > 50% of that time spent reviewing the chart, assessing the patient, discussing symptom management and POC with IDT.
--- NOTE | 2018-08-27 16:23 | Hospitalist Progress Note ---
Date of Service August 27, 2018 Assessment & Plan (1) Acute and chronic respiratory failure with hypoxia: patient with thick secretions from trachea, respiratory status deteriorating patient no longer wants treatment would not want ventilation if breathing gets worse refusing all medications, even IV medications, does not want feedings via NGT made patient comfort care on 08/05 Atropine, Scopolamine, Ativan and Morphine PRN stop blood draws stop other medications 08/27: patient resting comfortably working on placement still unsure of time frame certainly patient in renal failure at this point, minimal UO, no intake daughter updated at the bedside (2) Chronic cholecystitis: US with evidence of small stones and sludge but equivocal for infection HIDA showed no evidence of cystic duct obstruction thus ruling out acute cholecystitis however, there was delayed filling of gall bladder and EF was noted to be 5% diagnosis would be chronic cholecystitis vs dykinesis d/w daughter, cannot perform surgery not really a candidate for percutaneous drain either no longer tolerating tube feeds stop Cipro/Flagyl IV (3) Hemoptysis: stop Eliquis no further bleeding (4) Candidal urinary tract infection: was on caspofungin. now discontinued (5) MANJULA (acute kidney injury): patient was dehydrated on admission Cr tamera to 3-4 but now back to baseline at 1 with IV fluids continue to monitor requiring tube feeds to stay hydrated, will stop tube feeds no further blood draws (6) Hypernatremia: resolved (7) Atrial fibrillation: rate controlled hold Amiodarone since she cannot take PO (8) Hypothyroidism: Stable. Chronic * stopped synthroid (9) Chronic diastolic CHF (congestive heart failure): euvolemic, continue to monitor volume status (10) Chronic kidney disease, stage III (moderate): As above (11) Depression: stopped celexa (12) Orthostatic hypotension: holding Midodrine since BP normal and even elevated at times (13) GERD (gastroesophageal reflux disease): stopped meds (14) Sepsis: treated for pneumonia and now will treat cholecystitis no current evidence of sepsis (15) Peripheral edema: diffuse ecchymosis and edema due to protein level of 1.1, no oncotic pressure cannot improve albumin level even on tube feeds discussed with patient and her daughter that this will not improve (16) Hypokalemia: no further blood draws (17) Severe protein-calorie malnutrition: had to stop tube feeds due to elevated residuals cannot tolerate Reglan due to allergy severe diarrhea, not absorbing anything no further nutrition (18) Anemia: 8.9 no further blood draws (19) Hypophosphatemia: no further draws Subjective patient sleeping mostly for past 48 hours will wake when turned not in distress awaiting placement for hospice Review of Systems Unobtainable due to reduced consciousness Physical Exam 2 Vital Signs (Past 24 Hours): Last Vital Signs Temp 36.8 C 08/14/18 07:56 Pulse 56 L 08/14/18 07:56 Resp 22 08/14/18 07:56 BP 142/69 H 08/14/18 07:56 Pulse Ox 95 08/14/18 07:56 Constitutional: + ill appearing and + thin; no acute distress Eyes: PERRL, conjunctivae normal, anicteric sclerae Neck: + abnormal visual inspection (tracheostomy in place with secretions) Respiratory: normal respiratory effort and + cough Auscultation: + diminished lung sounds (bases bilaterally) and + rhonchi (very coarse bilaterally) Cardiovascular: Rate/Rhythm: regular rate and regular rhythm Heart Sounds: normal S1 and normal S2; no murmur Extremities: + edema Gastrointestinal (Abdomen): normal bowel sounds, soft, nontender, no hepatosplenomegaly Musculoskeletal: Head/Neck/Chest: normocephalic and head atraumatic Extremities: + abnormal strength (generalized weakness) Skin: + erythema (bilateral arms and legs) Neurologic: patellar DTR's 2+ bilat, sensation intact Psychiatric: Orientation: + not alert (lethargic) Mood: + depressed mood Lymphatic: no cervical or axillary lymphadenopathy _ (1) Atrial fibrillation Atrial fibrillation type: chronic Qualified Code(s): I48.2 - Chronic atrial fibrillation (2) Hypothyroidism Hypothyroidism type: acquired Qualified Code(s): E03.9 - Hypothyroidism, unspecified (3) Depression Depression Type: major depressive disorder Major depression recurrence: unspecified whether recurrent Active/Remission status: currently active Major depression episode severity: moderate Psychotic features: Trimester: Qualified Code(s): F32.1 - Major depressive disorder, single episode, moderate (4) GERD (gastroesophageal reflux disease) Esophagitis presence: without esophagitis Qualified Code(s): K21.9 - Gastro- esophageal reflux disease without esophagitis
[2018-08-28] MEDS: CHECK SCOPOLAMINE PATCH PLACEMENT SCH ×3 (01:00→16:22)
[2018-08-28] MEDS: MoRPHine SULFATE 10 MG/0.5 ML UDP PO SCH ×3 (08:33→20:50)
[2018-08-28] MEDS: SCOPOLAMINE 1.5 MG TDSY TD SCH (18:01)
[2018-08-28] MEDS: DAKIN'S SOLN 0.125% QUARTER STRENGTH 473 ML BTL EXT SCH (20:50)
[2018-08-29] MEDS: CHECK SCOPOLAMINE PATCH PLACEMENT SCH ×3 (00:51→16:17)
[2018-08-29] MEDS: DAKIN'S SOLN 0.125% QUARTER STRENGTH 473 ML BTL EXT SCH ×2 (06:00→20:56)
[2018-08-29] MEDS: MoRPHine SULFATE 10 MG/0.5 ML UDP PO SCH ×4 (07:55→20:55)
--- NOTE | 2018-08-29 22:55 | Hospitalist Progress Note ---
Date of Service August 29, 2018 Assessment & Plan (1) Acute and chronic respiratory failure with hypoxia: patient with thick secretions from trachea, respiratory status deteriorating patient no longer wants treatment would not want ventilation if breathing gets worse refusing all medications, even IV medications, does not want feedings via NGT made patient comfort care on 08/05 Atropine, Scopolamine, Ativan and Morphine PRN stop blood draws stop other medications 08/29: patient resting comfortably looking into patient going home on hospice daughter will need to discuss with her other family members (2) Chronic cholecystitis: US with evidence of small stones and sludge but equivocal for infection HIDA showed no evidence of cystic duct obstruction thus ruling out acute cholecystitis however, there was delayed filling of gall bladder and EF was noted to be 5% diagnosis would be chronic cholecystitis vs dykinesis d/w daughter, cannot perform surgery not really a candidate for percutaneous drain either no longer tolerating tube feeds stop Cipro/Flagyl IV (3) Hemoptysis: stop Eliquis no further bleeding (4) Candidal urinary tract infection: was on caspofungin. now discontinued (5) MANJULA (acute kidney injury): patient was dehydrated on admission Cr tamera to 3-4 but now back to baseline at 1 with IV fluids continue to monitor requiring tube feeds to stay hydrated, will stop tube feeds no further blood draws (6) Hypernatremia: resolved (7) Atrial fibrillation: rate controlled hold Amiodarone since she cannot take PO (8) Hypothyroidism: Stable. Chronic * stopped synthroid (9) Chronic diastolic CHF (congestive heart failure): euvolemic, continue to monitor volume status (10) Chronic kidney disease, stage III (moderate): As above (11) Depression: stopped celexa (12) Orthostatic hypotension: holding Midodrine since BP normal and even elevated at times (13) GERD (gastroesophageal reflux disease): stopped meds (14) Sepsis: treated for pneumonia and now will treat cholecystitis no current evidence of sepsis (15) Peripheral edema: diffuse ecchymosis and edema due to protein level of 1.1, no oncotic pressure cannot improve albumin level even on tube feeds discussed with patient and her daughter that this will not improve (16) Hypokalemia: no further blood draws (17) Severe protein-calorie malnutrition: had to stop tube feeds due to elevated residuals cannot tolerate Reglan due to allergy severe diarrhea, not absorbing anything no further nutrition (18) Anemia: 8.9 no further blood draws (19) Hypophosphatemia: no further draws Subjective patient stable Review of Systems Unobtainable due to reduced consciousness Physical Exam 2 Vital Signs (Past 24 Hours): Last Vital Signs Temp 36.8 C 08/14/18 07:56 Pulse 56 L 08/14/18 07:56 Resp 22 08/14/18 07:56 BP 142/69 H 08/14/18 07:56 Pulse Ox 95 08/14/18 07:56 Constitutional: + ill appearing and + thin; no acute distress Eyes: PERRL, conjunctivae normal, anicteric sclerae Neck: + abnormal visual inspection (tracheostomy in place with secretions) Respiratory: normal respiratory effort and + cough Auscultation: + diminished lung sounds (bases bilaterally) and + rhonchi (very coarse bilaterally) Cardiovascular: Rate/Rhythm: regular rate and regular rhythm Heart Sounds: normal S1 and normal S2; no murmur Extremities: + edema Gastrointestinal (Abdomen): normal bowel sounds, soft, nontender, no hepatosplenomegaly Musculoskeletal: Head/Neck/Chest: normocephalic and head atraumatic Extremities: + abnormal strength (generalized weakness) Skin: + erythema (bilateral arms and legs) Neurologic: patellar DTR's 2+ bilat, sensation intact Psychiatric: Orientation: + not alert (lethargic) Mood: + depressed mood Lymphatic: no cervical or axillary lymphadenopathy Results & Data Medications Administered Current Inpatient Medications Atropine Sulfate (Atropine Sulfate 1% Oph) 1 drops PO Q4H PRN PRN Reason: secretions Stop: 09/03/18 15:29 Last Admin: 08/27/18 07:58 Dose: 1 drops Heparin Sodium (Beef Lung) (Heparin Sod 10 Unit/Ml Flush) 5 ml FLUSH PRN PRN PRN Reason: Flush Stop: 09/26/18 00:18 Last Admin: 08/28/18 08:12 Dose: 5 ml Lorazepam (Ativan) 0.5 mg in 1 mls @ 1 mls/min IV Q6H PRN PRN Reason: Anxiety Stop: 09/03/18 00:37 Last Admin: 08/25/18 12:01 Dose: 1 mls/min Miscellaneous (Check Scopolamine Patch Placement) 1 ea N/A QS FERDINAND Stop: 09/03/18 15:59 Last Admin: 08/29/18 16:17 Dose: 1 ea Miscellaneous (Remove Transderm-Scop Patch) 1 ea N/A Q72H FERDINAND Stop: 09/06/18 17:58 Last Admin: 08/28/18 18:02 Dose: 1 ea Morphine Sulfate (Roxanol) 10 mg PO Q1HWA PRN PRN Reason: Pain Stop: 09/05/18 12:56 Last Admin: 08/27/18 05:06 Dose: 10 mg Morphine Sulfate (Morphine Sulfate) 2 mg IV Q2H PRN PRN Reason: Pain Stop: 09/08/18 13:27 Morphine Sulfate (Roxanol) 10 mg PO QID FERDINAND Stop: 09/12/18 12:59 Last Admin: 08/29/18 20:55 Dose: 10 mg Ondansetron HCl (Zofran) 4 mg IV Q6H PRN PRN Reason: Nausea Stop: 09/14/18 11:45 Last Admin: 08/15/18 16:37 Dose: 4 mg Scopolamine (Transderm-Scop) 1.5 mg TD Q72H [facility] Stop: 09/03/18 17:59 Last Admin: 08/28/18 18:01 Dose: 1.5 mg Sodium Hypochlorite (Dakin's Quarter Strength) 1 appln EXT BID [facility] Stop: 09/27/18 20:59 Last Admin: 08/29/18 20:56 Dose: 1 appln _ (1) Atrial fibrillation Atrial fibrillation type: chronic Qualified Code(s): I48.2 - Chronic atrial fibrillation (2) Depression Active/Remission status: currently active Depression Type: major depressive disorder Major depression episode severity: moderate Major depression recurrence: unspecified whether recurrent Psychotic features: Trimester: Qualified Code(s): F32.1 - Major depressive disorder, single episode, moderate (3) Hypothyroidism Hypothyroidism type: acquired Qualified Code(s): E03.9 - Hypothyroidism, unspecified (4) GERD (gastroesophageal reflux disease) Esophagitis presence: without esophagitis Qualified Code(s): K21.9 - Gastro- esophageal reflux disease without esophagitis
[2018-08-30] MEDS: CHECK SCOPOLAMINE PATCH PLACEMENT SCH ×3 (00:45→17:21)
[2018-08-30] MEDS: DAKIN'S SOLN 0.125% QUARTER STRENGTH 473 ML BTL EXT SCH ×2 (08:37→20:43)
[2018-08-30] MEDS: MoRPHine SULFATE 10 MG/0.5 ML UDP PO SCH ×4 (08:37→20:43)
--- NOTE | 2018-08-30 13:21 | Hospitalist Progress Note ---
Date of Service August 30, 2018 Assessment & Plan (1) Acute and chronic respiratory failure with hypoxia: patient with thick secretions from trachea, respiratory status deteriorating patient no longer wants treatment would not want ventilation if breathing gets worse refusing all medications, even IV medications, does not want feedings via NGT made patient comfort care on 08/05 Atropine, Scopolamine, Ativan and Morphine PRN stop blood draws stop other medications 08/30: patient resting comfortably hoping to go to SNF tomorrow (2) Chronic cholecystitis: US with evidence of small stones and sludge but equivocal for infection HIDA showed no evidence of cystic duct obstruction thus ruling out acute cholecystitis however, there was delayed filling of gall bladder and EF was noted to be 5% diagnosis would be chronic cholecystitis vs dykinesis d/w daughter, cannot perform surgery not really a candidate for percutaneous drain either no longer tolerating tube feeds stop Cipro/Flagyl IV (3) Hemoptysis: stop Eliquis no further bleeding (4) Candidal urinary tract infection: was on caspofungin. now discontinued (5) MANJULA (acute kidney injury): patient was dehydrated on admission Cr tamera to 3-4 but now back to baseline at 1 with IV fluids continue to monitor requiring tube feeds to stay hydrated, will stop tube feeds no further blood draws (6) Hypernatremia: resolved (7) Atrial fibrillation: rate controlled hold Amiodarone since she cannot take PO (8) Hypothyroidism: Stable. Chronic * stopped synthroid (9) Chronic diastolic CHF (congestive heart failure): euvolemic, continue to monitor volume status (10) Chronic kidney disease, stage III (moderate): As above (11) Depression: stopped celexa (12) Orthostatic hypotension: holding Midodrine since BP normal and even elevated at times (13) GERD (gastroesophageal reflux disease): stopped meds (14) Sepsis: treated for pneumonia and now will treat cholecystitis no current evidence of sepsis (15) Peripheral edema: diffuse ecchymosis and edema due to protein level of 1.1, no oncotic pressure cannot improve albumin level even on tube feeds discussed with patient and her daughter that this will not improve (16) Hypokalemia: no further blood draws (17) Severe protein-calorie malnutrition: had to stop tube feeds due to elevated residuals cannot tolerate Reglan due to allergy severe diarrhea, not absorbing anything no further nutrition (18) Anemia: 8.9 no further blood draws (19) Hypophosphatemia: no further draws Subjective patient resting on oxygen titrating oxygen down gino has no urine talked with daughter and CM about going to [facility] semi-private room daughter is agreeable hope it can happen tomorrow Review of Systems Unobtainable due to reduced consciousness Physical Exam 2 Vital Signs (Past 24 Hours): Last Vital Signs Temp 36.8 C 08/14/18 07:56 Pulse 56 L 08/14/18 07:56 Resp 22 08/14/18 07:56 BP 142/69 H 08/14/18 07:56 Pulse Ox 95 08/14/18 07:56 Constitutional: + ill appearing and + thin; no acute distress Eyes: PERRL, conjunctivae normal, anicteric sclerae Neck: + abnormal visual inspection (tracheostomy in place with secretions) Respiratory: normal respiratory effort and + cough Auscultation: + diminished lung sounds (bases bilaterally) and + rhonchi (very coarse bilaterally) Cardiovascular: Rate/Rhythm: regular rate and regular rhythm Heart Sounds: normal S1 and normal S2; no murmur Extremities: + edema Gastrointestinal (Abdomen): normal bowel sounds, soft, nontender, no hepatosplenomegaly Musculoskeletal: Head/Neck/Chest: normocephalic and head atraumatic Extremities: + abnormal strength (generalized weakness) Skin: + erythema (bilateral arms and legs) Neurologic: patellar DTR's 2+ bilat, sensation intact Psychiatric: Orientation: + not alert (lethargic) Mood: + depressed mood Lymphatic: no cervical or axillary lymphadenopathy _ (1) Atrial fibrillation Atrial fibrillation type: chronic Qualified Code(s): I48.2 - Chronic atrial fibrillation (2) Hypothyroidism Hypothyroidism type: acquired Qualified Code(s): E03.9 - Hypothyroidism, unspecified (3) Depression Depression Type: major depressive disorder Major depression recurrence: unspecified whether recurrent Active/Remission status: currently active Major depression episode severity: moderate Psychotic features: Trimester: Qualified Code(s): F32.1 - Major depressive disorder, single episode, moderate (4) GERD (gastroesophageal reflux disease) Esophagitis presence: without esophagitis Qualified Code(s): K21.9 - Gastro- esophageal reflux disease without esophagitis
[2018-08-31] MEDS: CHECK SCOPOLAMINE PATCH PLACEMENT SCH ×3 (01:45→15:36)
[2018-08-31] MEDS: MoRPHine SULFATE 10 MG/0.5 ML UDP PO SCH ×4 (08:45→21:12)
[2018-08-31] MEDS: DAKIN'S SOLN 0.125% QUARTER STRENGTH 473 ML BTL EXT SCH ×2 (08:45→21:12)
--- NOTE | 2018-08-31 09:24 | Hospitalist Progress Note ---
Date of Service August 31, 2018 Assessment & Plan (1) Acute and chronic respiratory failure with hypoxia: patient with thick secretions from trachea, respiratory status deteriorating patient no longer wants treatment would not want ventilation if breathing gets worse refusing all medications, even IV medications, does not want feedings via NGT made patient comfort care on 08/05 Atropine, Scopolamine, Ativan and Morphine PRN stop blood draws stop other medications 08/31: patient resting comfortably hoping to go to SNF if a bed becomes available (2) Chronic cholecystitis: US with evidence of small stones and sludge but equivocal for infection HIDA showed no evidence of cystic duct obstruction thus ruling out acute cholecystitis however, there was delayed filling of gall bladder and EF was noted to be 5% diagnosis would be chronic cholecystitis vs dykinesis d/w daughter, cannot perform surgery not really a candidate for percutaneous drain either no longer tolerating tube feeds stop Cipro/Flagyl IV (3) Hemoptysis: stop Eliquis no further bleeding (4) Candidal urinary tract infection: was on caspofungin. now discontinued (5) MANJULA (acute kidney injury): patient was dehydrated on admission Cr tamera to 3-4 but now back to baseline at 1 with IV fluids continue to monitor requiring tube feeds to stay hydrated, will stop tube feeds no further blood draws (6) Hypernatremia: resolved (7) Atrial fibrillation: rate controlled hold Amiodarone since she cannot take PO (8) Hypothyroidism: Stable. Chronic * stopped synthroid (9) Chronic diastolic CHF (congestive heart failure): euvolemic, continue to monitor volume status (10) Chronic kidney disease, stage III (moderate): As above (11) Depression: stopped celexa (12) Orthostatic hypotension: holding Midodrine since BP normal and even elevated at times (13) GERD (gastroesophageal reflux disease): stopped meds (14) Sepsis: treated for pneumonia and now will treat cholecystitis no current evidence of sepsis (15) Peripheral edema: diffuse ecchymosis and edema due to protein level of 1.1, no oncotic pressure cannot improve albumin level even on tube feeds discussed with patient and her daughter that this will not improve (16) Hypokalemia: no further blood draws (17) Severe protein-calorie malnutrition: had to stop tube feeds due to elevated residuals cannot tolerate Reglan due to allergy severe diarrhea, not absorbing anything no further nutrition (18) Anemia: 8.9 no further blood draws (19) Hypophosphatemia: no further draws Subjective no response from patient, sleeping all day per RN awaiting answer from SNF about bed today Review of Systems Unobtainable due to reduced consciousness Physical Exam 2 Vital Signs (Past 24 Hours): Last Vital Signs Temp 36.8 C 08/14/18 07:56 Pulse 56 L 08/14/18 07:56 Resp 22 08/14/18 07:56 BP 142/69 H 08/14/18 07:56 Pulse Ox 95 08/14/18 07:56 Constitutional: + ill appearing and + thin; no acute distress Eyes: PERRL, conjunctivae normal, anicteric sclerae Neck: + abnormal visual inspection (tracheostomy in place with secretions) Respiratory: normal respiratory effort and + cough Auscultation: + diminished lung sounds (bases bilaterally) and + rhonchi (very coarse bilaterally) Cardiovascular: Rate/Rhythm: regular rate and regular rhythm Heart Sounds: normal S1 and normal S2; no murmur Extremities: + edema Gastrointestinal (Abdomen): normal bowel sounds, soft, nontender, no hepatosplenomegaly Musculoskeletal: Head/Neck/Chest: normocephalic and head atraumatic Extremities: + abnormal strength (generalized weakness) Skin: + erythema (bilateral arms and legs) Neurologic: patellar DTR's 2+ bilat, sensation intact Psychiatric: Orientation: + not alert (lethargic) Mood: + depressed mood Lymphatic: no cervical or axillary lymphadenopathy Results & Data Medications Administered Current Inpatient Medications Atropine Sulfate (Atropine Sulfate 1% Oph) 1 drops PO Q4H PRN PRN Reason: secretions Stop: 09/03/18 15:29 Last Admin: 08/27/18 07:58 Dose: 1 drops Heparin Sodium (Beef Lung) (Heparin Sod 10 Unit/Ml Flush) 5 ml FLUSH PRN PRN PRN Reason: Flush Stop: 09/26/18 00:18 Last Admin: 08/28/18 08:12 Dose: 5 ml Lorazepam (Ativan) 0.5 mg in 1 mls @ 1 mls/min IV Q6H PRN PRN Reason: Anxiety Stop: 09/03/18 00:37 Last Admin: 08/25/18 12:01 Dose: 1 mls/min Miscellaneous (Check Scopolamine Patch Placement) 1 ea N/A QS [facility] Stop: 09/03/18 15:59 Last Admin: 08/31/18 08:46 Dose: 1 ea Miscellaneous (Remove Transderm-Scop Patch) 1 ea N/A Q72H [facility] Stop: 09/06/18 17:58 Last Admin: 08/28/18 18:02 Dose: 1 ea Morphine Sulfate (Roxanol) 10 mg PO Q1HWA PRN PRN Reason: Pain Stop: 09/05/18 12:56 Last Admin: 08/27/18 05:06 Dose: 10 mg Morphine Sulfate (Morphine Sulfate) 2 mg IV Q2H PRN PRN Reason: Pain Stop: 09/08/18 13:27 Morphine Sulfate (Roxanol) 10 mg PO QID [facility] Stop: 09/12/18 12:59 Last Admin: 08/31/18 08:45 Dose: 10 mg Ondansetron HCl (Zofran) 4 mg IV Q6H PRN PRN Reason: Nausea Stop: 09/14/18 11:45 Last Admin: 08/15/18 16:37 Dose: 4 mg Scopolamine (Transderm-Scop) 1.5 mg TD Q72H [facility] Stop: 09/03/18 17:59 Last Admin: 08/28/18 18:01 Dose: 1.5 mg Sodium Hypochlorite (Dakin's Quarter Strength) 1 appln EXT BID [facility] Stop: 09/27/18 20:59 Last Admin: 08/31/18 08:45 Dose: 1 appln _ (1) Atrial fibrillation Atrial fibrillation type: chronic Qualified Code(s): I48.2 - Chronic atrial fibrillation (2) Depression Active/Remission status: currently active Depression Type: major depressive disorder Major depression episode severity: moderate Major depression recurrence: unspecified whether recurrent Psychotic features: Trimester: Qualified Code(s): F32.1 - Major depressive disorder, single episode, moderate (3) Hypothyroidism Hypothyroidism type: acquired Qualified Code(s): E03.9 - Hypothyroidism, unspecified (4) GERD (gastroesophageal reflux disease) Esophagitis presence: without esophagitis Qualified Code(s): K21.9 - Gastro- esophageal reflux disease without esophagitis
[2018-08-31] MEDS: SCOPOLAMINE 1.5 MG TDSY TD SCH (17:14)
[2018-09-01] MEDS: CHECK SCOPOLAMINE PATCH PLACEMENT SCH ×3 (00:54→17:20)
[2018-09-01] MEDS: LORazepam 0.5 MG/1 ML VIAL IV PRN (08:42)
[2018-09-01] MEDS: MoRPHine SULFATE 10 MG/0.5 ML UDP PO SCH (08:53)
[2018-09-01] MEDS: DAKIN'S SOLN 0.125% QUARTER STRENGTH 473 ML BTL EXT SCH ×2 (08:54→21:20)
[2018-09-01] MEDS: MoRPHine SULFATE 2 MG/ML CARP IV SCH ×6 (13:02→23:09)
[2018-09-01] MEDS: LORazepam 1 MG/2 ML VIAL IV SCH ×3 (13:02→21:19)
--- NOTE | 2018-09-01 15:57 | Hospitalist Progress Note ---
Date of Service September 01, 2018 Assessment & Plan (1) Acute and chronic respiratory failure with hypoxia: patient with thick secretions from trachea, respiratory status deteriorating patient no longer wants treatment would not want ventilation if breathing gets worse refusing all medications, even IV medications, does not want feedings via NGT made patient comfort care on 08/05 Atropine, Scopolamine, Ativan and Morphine PRN stop blood draws stop other medications 09/01: brief seizure this morning place on Ativan 1mg q2 scheduled Morphine 2mg IV q2 discussed with daughter, feel that patient does not have much longer she will come into hospital, make other family members aware (2) Chronic cholecystitis: US with evidence of small stones and sludge but equivocal for infection HIDA showed no evidence of cystic duct obstruction thus ruling out acute cholecystitis however, there was delayed filling of gall bladder and EF was noted to be 5% diagnosis would be chronic cholecystitis vs dykinesis d/w daughter, cannot perform surgery not really a candidate for percutaneous drain either no longer tolerating tube feeds stop Cipro/Flagyl IV (3) Hemoptysis: stop Eliquis no further bleeding (4) Candidal urinary tract infection: was on caspofungin. now discontinued (5) MANJULA (acute kidney injury): patient was dehydrated on admission Cr tamera to 3-4 but now back to baseline at 1 with IV fluids continue to monitor requiring tube feeds to stay hydrated, will stop tube feeds no further blood draws (6) Hypernatremia: resolved (7) Atrial fibrillation: rate controlled hold Amiodarone since she cannot take PO (8) Hypothyroidism: Stable. Chronic * stopped synthroid (9) Chronic diastolic CHF (congestive heart failure): euvolemic, continue to monitor volume status (10) Chronic kidney disease, stage III (moderate): As above (11) Depression: stopped celexa (12) Orthostatic hypotension: holding Midodrine since BP normal and even elevated at times (13) GERD (gastroesophageal reflux disease): stopped meds (14) Sepsis: treated for pneumonia and now will treat cholecystitis no current evidence of sepsis (15) Peripheral edema: diffuse ecchymosis and edema due to protein level of 1.1, no oncotic pressure cannot improve albumin level even on tube feeds discussed with patient and her daughter that this will not improve (16) Hypokalemia: no further blood draws (17) Severe protein-calorie malnutrition: had to stop tube feeds due to elevated residuals cannot tolerate Reglan due to allergy severe diarrhea, not absorbing anything no further nutrition (18) Anemia: 8.9 no further blood draws (19) Hypophosphatemia: no further draws Subjective patient had two brief seizures this morning when aides were cleaning her relieved with Ativan called daughter Grisel to discuss, explained that I would place her on Ativan and Morphine scheduled daughter agreed with plan followed up with patient in the afternoon, resting comfortably, no further seizures Review of Systems Unobtainable due to reduced consciousness Physical Exam 2 Vital Signs (Past 24 Hours): Last Vital Signs Temp 36.8 C 08/14/18 07:56 Pulse 56 L 08/14/18 07:56 Resp 22 08/14/18 07:56 BP 142/69 H 08/14/18 07:56 Pulse Ox 95 08/14/18 07:56 Constitutional: + ill appearing and + thin; no acute distress Neck: + abnormal visual inspection (tracheostomy in place with secretions) Respiratory: Auscultation: + diminished lung sounds (bases bilaterally) and + rhonchi (very coarse bilaterally) shallow respirations Cardiovascular: Rate/Rhythm: regular rate and regular rhythm Heart Sounds: normal S1 and normal S2; no murmur Extremities: + edema Gastrointestinal (Abdomen): normal bowel sounds, soft, nontender, no hepatosplenomegaly Musculoskeletal: Head/Neck/Chest: normocephalic and head atraumatic Neurologic: unresponsive, sedated on Ativan and Morphine Psychiatric: Orientation: + not alert (lethargic) Lymphatic: no cervical or axillary lymphadenopathy Results & Data Medications Administered Current Inpatient Medications Atropine Sulfate (Atropine Sulfate 1% Oph) 1 drops PO Q4H PRN PRN Reason: secretions Stop: 09/03/18 15:29 Last Admin: 08/27/18 07:58 Dose: 1 drops Heparin Sodium (Beef Lung) (Heparin Sod 10 Unit/Ml Flush) 5 ml FLUSH PRN PRN PRN Reason: Flush Stop: 09/26/18 00:18 Last Admin: 09/01/18 08:54 Dose: 5 ml Lorazepam (Ativan) 0.5 mg in 1 mls @ 1 mls/min IV Q6H PRN PRN Reason: Anxiety Stop: 09/03/18 00:37 Last Admin: 09/01/18 08:42 Dose: 1 mls/min Lorazepam (Ativan) 1 mg in 2 mls @ 2 mls/min IV Q4H [facility] Stop: 10/01/18 12:59 Last Admin: 09/01/18 13:02 Dose: 2 mls/min Miscellaneous (Check Scopolamine Patch Placement) 1 ea N/A QS [facility] Stop: 09/03/18 15:59 Last Admin: 09/01/18 08:54 Dose: 1 ea Miscellaneous (Remove Transderm-Scop Patch) 1 ea N/A Q72H [facility] Stop: 09/06/18 17:58 Last Admin: 08/31/18 17:15 Dose: 1 ea Morphine Sulfate (Roxanol) 10 mg PO Q1HWA PRN PRN Reason: Pain Stop: 09/05/18 12:56 Last Admin: 08/27/18 05:06 Dose: 10 mg Morphine Sulfate (Morphine Sulfate) 2 mg IV Q2H [facility] Stop: 09/15/18 12:59 Last Admin: 09/01/18 14:53 Dose: 2 mg Ondansetron HCl (Zofran) 4 mg IV Q6H PRN PRN Reason: Nausea Stop: 09/14/18 11:45 Last Admin: 08/15/18 16:37 Dose: 4 mg Scopolamine (Transderm-Scop) 1.5 mg TD Q72H [facility] Stop: 09/03/18 17:59 Last Admin: 08/31/18 17:14 Dose: 1.5 mg Sodium Hypochlorite (Dakin's Quarter Strength) 1 appln EXT BID [facility] Stop: 09/27/18 20:59 Last Admin: 09/01/18 08:54 Dose: 1 appln _ (1) Atrial fibrillation Atrial fibrillation type: chronic Qualified Code(s): I48.2 - Chronic atrial fibrillation (2) Hypothyroidism Hypothyroidism type: acquired Qualified Code(s): E03.9 - Hypothyroidism, unspecified (3) Depression Depression Type: major depressive disorder Major depression recurrence: unspecified whether recurrent Active/Remission status: currently active Major depression episode severity: moderate Psychotic features: Trimester: Qualified Code(s): F32.1 - Major depressive disorder, single episode, moderate (4) GERD (gastroesophageal reflux disease) Esophagitis presence: without esophagitis Qualified Code(s): K21.9 - Gastro- esophageal reflux disease without esophagitis
[2018-09-02] MEDS: LORazepam 1 MG/2 ML VIAL IV SCH ×6 (01:07→21:04)
[2018-09-02] MEDS: MoRPHine SULFATE 10 MG/0.5 ML UDP PO PRN (01:07)
[2018-09-02] MEDS: CHECK SCOPOLAMINE PATCH PLACEMENT SCH ×4 (01:08→23:57)
[2018-09-02] MEDS: MoRPHine SULFATE 2 MG/ML CARP IV SCH ×12 (01:24→23:32)
[2018-09-02] MEDS: DAKIN'S SOLN 0.125% QUARTER STRENGTH 473 ML BTL EXT SCH ×2 (08:25→21:04)
--- NOTE | 2018-09-02 23:06 | Hospitalist Progress Note ---
Date of Service September 02, 2018 Assessment & Plan (1) Acute and chronic respiratory failure with hypoxia: patient with thick secretions from trachea, respiratory status deteriorating patient no longer wants treatment would not want ventilation if breathing gets worse refusing all medications, even IV medications, does not want feedings via NGT made patient comfort care on 08/05 Atropine, Scopolamine, Ativan and Morphine PRN stop blood draws stop other medications 09/02: continue Ativan and Morphine scheduled patient slowly declining anticipate patient passing away soon (2) Chronic cholecystitis: US with evidence of small stones and sludge but equivocal for infection HIDA showed no evidence of cystic duct obstruction thus ruling out acute cholecystitis however, there was delayed filling of gall bladder and EF was noted to be 5% diagnosis would be chronic cholecystitis vs dykinesis d/w daughter, cannot perform surgery not really a candidate for percutaneous drain either no longer tolerating tube feeds stop Cipro/Flagyl IV (3) Hemoptysis: stop Eliquis no further bleeding (4) Candidal urinary tract infection: was on caspofungin. now discontinued (5) MANJULA (acute kidney injury): patient was dehydrated on admission Cr tamera to 3-4 but now back to baseline at 1 with IV fluids continue to monitor requiring tube feeds to stay hydrated, will stop tube feeds no further blood draws (6) Hypernatremia: resolved (7) Atrial fibrillation: rate controlled hold Amiodarone since she cannot take PO (8) Hypothyroidism: Stable. Chronic * stopped synthroid (9) Chronic diastolic CHF (congestive heart failure): euvolemic, continue to monitor volume status (10) Chronic kidney disease, stage III (moderate): As above (11) Depression: stopped celexa (12) Orthostatic hypotension: holding Midodrine since BP normal and even elevated at times (13) GERD (gastroesophageal reflux disease): stopped meds (14) Sepsis: treated for pneumonia and now will treat cholecystitis no current evidence of sepsis (15) Peripheral edema: diffuse ecchymosis and edema due to protein level of 1.1, no oncotic pressure cannot improve albumin level even on tube feeds discussed with patient and her daughter that this will not improve (16) Hypokalemia: no further blood draws (17) Severe protein-calorie malnutrition: had to stop tube feeds due to elevated residuals cannot tolerate Reglan due to allergy severe diarrhea, not absorbing anything no further nutrition (18) Anemia: 8.9 no further blood draws (19) Hypophosphatemia: no further draws Subjective no change today, patient comfortable on scheduled Ativan and Morphine respirations still > 12, no signs of discomfort or distress daughter at the bedside Review of Systems Unobtainable due to reduced consciousness Physical Exam 2 Vital Signs (Past 24 Hours): Last Vital Signs Temp 36.8 C 08/14/18 07:56 Pulse 56 L 08/14/18 07:56 Resp 22 08/14/18 07:56 BP 142/69 H 08/14/18 07:56 Pulse Ox 95 08/14/18 07:56 Constitutional: + ill appearing and + thin; no acute distress Eyes: PERRL, conjunctivae normal, anicteric sclerae Neck: + abnormal visual inspection (tracheostomy in place with secretions) Respiratory: normal respiratory effort and + cough Auscultation: + diminished lung sounds (bases bilaterally) and + rhonchi (very coarse bilaterally) Cardiovascular: Rate/Rhythm: regular rate and regular rhythm Heart Sounds: normal S1 and normal S2; no murmur Extremities: + edema Gastrointestinal (Abdomen): normal bowel sounds, soft, nontender, no hepatosplenomegaly Musculoskeletal: Head/Neck/Chest: normocephalic and head atraumatic Extremities: + abnormal strength (generalized weakness) Skin: + erythema (bilateral arms and legs) Neurologic: patellar DTR's 2+ bilat, sensation intact Psychiatric: Orientation: + not alert (lethargic) Mood: + depressed mood Lymphatic: no cervical or axillary lymphadenopathy _ (1) Atrial fibrillation Atrial fibrillation type: chronic Qualified Code(s): I48.2 - Chronic atrial fibrillation (2) Hypothyroidism Hypothyroidism type: acquired Qualified Code(s): E03.9 - Hypothyroidism, unspecified (3) Depression Depression Type: major depressive disorder Major depression recurrence: unspecified whether recurrent Active/Remission status: currently active Major depression episode severity: moderate Psychotic features: Trimester: Qualified Code(s): F32.1 - Major depressive disorder, single episode, moderate (4) GERD (gastroesophageal reflux disease) Esophagitis presence: without esophagitis Qualified Code(s): K21.9 - Gastro- esophageal reflux disease without esophagitis
[2018-09-03] MEDS: LORazepam 1 MG/2 ML VIAL IV SCH ×6 (01:29→21:13)
[2018-09-03] MEDS: MoRPHine SULFATE 2 MG/ML CARP IV SCH ×5 (01:30→09:00)
[2018-09-03] MEDS: DAKIN'S SOLN 0.125% QUARTER STRENGTH 473 ML BTL EXT SCH ×2 (08:39→21:13)
[2018-09-03] MEDS: CHECK SCOPOLAMINE PATCH PLACEMENT SCH (08:40)
[2018-09-03] MEDS ORDERED: MoRPHine SULFATE 2 MG/ML CARP IV PRN (10:48)
[2018-09-03] MEDS: MoRPHine SULF/NSS 250 MG/250 ML BTL IV SCH (11:28)
--- NOTE | 2018-09-03 13:04 | Hospitalist Progress Note ---
Date of Service September 03, 2018 Assessment & Plan (1) Acute and chronic respiratory failure with hypoxia: patient with thick secretions from trachea, respiratory status deteriorating patient no longer wants treatment would not want ventilation if breathing gets worse refusing all medications, even IV medications, does not want feedings via NGT made patient comfort care on 08/05 Atropine, Scopolamine, Ativan and Morphine PRN stop blood draws stop other medications 09/03: continue Ativan scheduled place on Morphine drip keep inpatient comfort measures daughter updated bedside (2) Chronic cholecystitis: US with evidence of small stones and sludge but equivocal for infection HIDA showed no evidence of cystic duct obstruction thus ruling out acute cholecystitis however, there was delayed filling of gall bladder and EF was noted to be 5% diagnosis would be chronic cholecystitis vs dykinesis d/w daughter, cannot perform surgery not really a candidate for percutaneous drain either no longer tolerating tube feeds stop Cipro/Flagyl IV (3) Hemoptysis: stop Eliquis no further bleeding (4) Candidal urinary tract infection: was on caspofungin. now discontinued (5) MANJULA (acute kidney injury): patient was dehydrated on admission Cr tamera to 3-4 but now back to baseline at 1 with IV fluids continue to monitor requiring tube feeds to stay hydrated, will stop tube feeds no further blood draws (6) Hypernatremia: resolved (7) Atrial fibrillation: rate controlled hold Amiodarone since she cannot take PO (8) Hypothyroidism: Stable. Chronic * stopped synthroid (9) Chronic diastolic CHF (congestive heart failure): euvolemic, continue to monitor volume status (10) Chronic kidney disease, stage III (moderate): As above (11) Depression: stopped celexa (12) Orthostatic hypotension: holding Midodrine since BP normal and even elevated at times (13) GERD (gastroesophageal reflux disease): stopped meds (14) Sepsis: treated for pneumonia and now will treat cholecystitis no current evidence of sepsis (15) Peripheral edema: diffuse ecchymosis and edema due to protein level of 1.1, no oncotic pressure cannot improve albumin level even on tube feeds discussed with patient and her daughter that this will not improve (16) Hypokalemia: no further blood draws (17) Severe protein-calorie malnutrition: had to stop tube feeds due to elevated residuals cannot tolerate Reglan due to allergy severe diarrhea, not absorbing anything no further nutrition (18) Anemia: 8.9 no further blood draws (19) Hypophosphatemia: no further draws Subjective no distress did not get several scheduled doses of Morphine last night will place on morphine drip, discussed with daughter Grisel at the bedside, she agrees will keep in hospital on comfort measures Review of Systems Unobtainable due to reduced consciousness Physical Exam 2 Vital Signs (Past 24 Hours): Last Vital Signs Temp 36.8 C 08/14/18 07:56 Pulse 56 L 08/14/18 07:56 Resp 22 08/14/18 07:56 BP 142/69 H 08/14/18 07:56 Pulse Ox 95 08/14/18 07:56 Constitutional: + ill appearing and + thin; no acute distress Eyes: PERRL, conjunctivae normal, anicteric sclerae Neck: + abnormal visual inspection (tracheostomy in place with secretions) Respiratory: normal respiratory effort and + cough Auscultation: + diminished lung sounds (bases bilaterally) and + rhonchi (very coarse bilaterally) Cardiovascular: Rate/Rhythm: regular rate and regular rhythm Heart Sounds: normal S1 and normal S2; no murmur Extremities: + edema Gastrointestinal (Abdomen): normal bowel sounds, soft, nontender, no hepatosplenomegaly Musculoskeletal: Head/Neck/Chest: normocephalic and head atraumatic Extremities: + abnormal strength (generalized weakness) Skin: + erythema (bilateral arms and legs) Neurologic: patellar DTR's 2+ bilat, sensation intact Psychiatric: Orientation: + not alert (lethargic) Mood: + depressed mood Lymphatic: no cervical or axillary lymphadenopathy _ (1) Atrial fibrillation Atrial fibrillation type: chronic Qualified Code(s): I48.2 - Chronic atrial fibrillation (2) Hypothyroidism Hypothyroidism type: acquired Qualified Code(s): E03.9 - Hypothyroidism, unspecified (3) Depression Depression Type: major depressive disorder Major depression recurrence: unspecified whether recurrent Active/Remission status: currently active Major depression episode severity: moderate Psychotic features: Trimester: Qualified Code(s): F32.1 - Major depressive disorder, single episode, moderate (4) GERD (gastroesophageal reflux disease) Esophagitis presence: without esophagitis Qualified Code(s): K21.9 - Gastro- esophageal reflux disease without esophagitis
[2018-09-03] MEDS: SCOPOLAMINE 1.5 MG TDSY TD SCH (15:59)
--- NOTE | 2018-09-03 16:13 | Palliative Care Progress Note ---
Date of Service September 03, 2018 Assessment & Plan (1) Comfort measures only status: -Patient has been comfort measures only for some time. -Has not received any PO fluids of nutrition for a month. -Continues to have periods of wakefulness, but now is completely obtunded during both my visits today. -Patient had seizure activity over the weekend. -This morning when patient was seen, she did have some facial grimacing during exam, she missed a few doses of IV morphine over night. Continuous morphine infusion was started this AM. During afternoon visit, patient's face relaxed and appeared comfortable. -Daughter, Grisel, was at bedside during my second visit. NO questions/concerns. Subjective Patient seen for follow up, patient on comfort measures only status. Seen in AM and PM today. Daughter was present during afternoon visit. Patient continues to decline and requires more IV morphine for comfort. See A&P. Review of Systems Unobtainable due to cognitive status and Unobtainable due to reduced consciousness Physical Exam 2 Vital Signs (Past 24 Hours): Last Vital Signs Temp 36.8 C 08/14/18 07:56 Pulse 56 L 08/14/18 07:56 Resp 22 08/14/18 07:56 BP 142/69 H 08/14/18 07:56 Pulse Ox 95 08/14/18 07:56 Constitutional: + ill appearing and + frail appearing; + not well nourished and no acute distress Neck: trachea midline and + tracheostomy present Respiratory: normal respiratory effort (shallow respirations); no respiratory distress Auscultation: + diminished lung sounds Gastrointestinal (Abdomen): Inspection/Auscultation: normal bowel sounds; abdomen not distended Percussion/Palpation: abdomen soft Skin: + ecchymosis (thin fragile skin) and + pallor Neurologic: + obtunded Time Spent Midlevel 35 minutes with >50% of time spent at bedside with patient and daughter discussing symptom management and EOL issues.
[2018-09-04] MEDS: LORazepam 1 MG/2 ML VIAL IV SCH ×6 (01:07→21:48)
[2018-09-04] MEDS: DAKIN'S SOLN 0.125% QUARTER STRENGTH 473 ML BTL EXT SCH (10:56)
[2018-09-04] MEDS: MoRPHine SULF/NSS 250 MG/250 ML BTL IV SCH (11:08)
[2018-09-04] MEDS: CHECK SCOPOLAMINE PATCH PLACEMENT SCH (17:02)
--- NOTE | 2018-09-04 17:55 | Hospitalist Progress Note ---
Date of Service September 04, 2018 Assessment & Plan (1) Acute and chronic respiratory failure with hypoxia: patient with thick secretions from trachea, respiratory status deteriorating patient no longer wants treatment would not want ventilation if breathing gets worse refusing all medications, even IV medications, does not want feedings via NGT made patient comfort care on 08/05 Atropine, Scopolamine, Ativan and Morphine PRN stop blood draws stop other medications 09/04: continue Ativan scheduled Continue on morphine drip keep inpatient comfort measures (2) Chronic cholecystitis: US with evidence of small stones and sludge but equivocal for infection HIDA showed no evidence of cystic duct obstruction thus ruling out acute cholecystitis however, there was delayed filling of gall bladder and EF was noted to be 5% diagnosis would be chronic cholecystitis vs dykinesis d/w daughter, cannot perform surgery not really a candidate for percutaneous drain either no longer tolerating tube feeds Have long since stopped the Cipro/Flagyl IV (3) Hemoptysis: Discontinued her Eliquis no further bleeding (4) Candidal urinary tract infection: was on caspofungin. now discontinued (5) MANJULA (acute kidney injury): patient was dehydrated on admission Cr tamera to 3-4 but then was back to baseline at 1 with IV fluids no further blood draws (6) Hypernatremia: No longer checking labs (7) Atrial fibrillation: No further treatment or anticoagulation (8) Hypothyroidism: Not giving Synthroid (9) Chronic diastolic CHF (congestive heart failure): Chronic, is hypovolemic due to no p.o. intake in a month (10) Chronic kidney disease, stage III (moderate): (11) Depression: stopped celexa (12) Orthostatic hypotension: Not receiving treatment (13) GERD (gastroesophageal reflux disease): stopped meds (14) Sepsis: treated for pneumonia and and then treated for cholecystitis Now on comfort measures (15) Peripheral edema: diffuse ecchymosis and edema due to protein level of 1.1, no oncotic pressure Could not improve albumin level even on tube feeds Now on comfort measures (16) Hypokalemia: no further blood draws (17) Severe protein-calorie malnutrition: had to stop tube feeds due to elevated residuals cannot tolerate Reglan due to allergy severe diarrhea, not absorbing anything no further nutrition (18) Anemia: No longer checking (19) Hypophosphatemia: no further draws Disposition-patient remains on a morphine drip and is completely obtunded, has not eaten or drank anything in almost a month. She is comfortable and I expect her to pass away in the next 2-3 days. Subjective Patient completely obtunded. RN reports she appears comfortable in no grimace today although she did open her eyes briefly and bit down on the mouth swab today. No seizure activity Review of Systems Unobtainable due to reduced consciousness Physical Exam 2 Vital Signs (Past 24 Hours): Last Vital Signs Temp 36.8 C 08/14/18 07:56 Pulse 56 L 08/14/18 07:56 Resp 22 08/14/18 07:56 BP 142/69 H 08/14/18 07:56 Pulse Ox 95 08/14/18 07:56 Constitutional: + ill appearing; no acute distress Neck: + abnormal visual inspection (Tracheostomy tube in place) Respiratory: + abnormal respiratory effort (Shallow respirations) Cardiovascular: Rate/Rhythm: regular rate and regular rhythm Extremities: + edema (Trace pitting edema in the lower extremities) Musculoskeletal: Extremities: extremities normal to inspection; no cyanosis and no clubbing Skin: no rashes, warm and dry Neurologic: + obtunded _ (1) Atrial fibrillation Atrial fibrillation type: chronic Qualified Code(s): I48.2 - Chronic atrial fibrillation (2) Hypothyroidism Hypothyroidism type: acquired Qualified Code(s): E03.9 - Hypothyroidism, unspecified (3) Depression Depression Type: major depressive disorder Major depression recurrence: unspecified whether recurrent Active/Remission status: currently active Major depression episode severity: moderate Psychotic features: Trimester: Qualified Code(s): F32.1 - Major depressive disorder, single episode, moderate (4) GERD (gastroesophageal reflux disease) Esophagitis presence: without esophagitis Qualified Code(s): K21.9 - Gastro- esophageal reflux disease without esophagitis
[2018-09-05] MEDS: CHECK SCOPOLAMINE PATCH PLACEMENT SCH ×3 (01:06→17:15)
[2018-09-05] MEDS: LORazepam 1 MG/2 ML VIAL IV SCH ×6 (01:07→21:35)
[2018-09-05] MEDS: MoRPHine SULF/NSS 250 MG/250 ML BTL IV SCH (10:30)
[2018-09-06] MEDS: LORazepam 1 MG/2 ML VIAL IV SCH ×6 (01:55→22:51)
[2018-09-06] MEDS: MoRPHine SULF/NSS 250 MG/250 ML BTL IV SCH (04:25)
--- NOTE | 2018-09-06 07:09 | Hospitalist Progress Note ---
Date of Service September 05, 2018 Assessment & Plan (1) Acute and chronic respiratory failure with hypoxia: patient with thick secretions from trachea, respiratory status deteriorating patient no longer wants treatment would not want ventilation if breathing gets worse refusing all medications, even IV medications, does not want feedings via NGT made patient comfort care on 08/05 Atropine, Scopolamine, Ativan and Morphine PRN stop blood draws stop other medications -Continue Ativan scheduled Continue on morphine drip keep inpatient comfort measures (2) Chronic cholecystitis: US with evidence of small stones and sludge but equivocal for infection HIDA showed no evidence of cystic duct obstruction thus ruling out acute cholecystitis however, there was delayed filling of gall bladder and EF was noted to be 5% diagnosis would be chronic cholecystitis vs dykinesis d/w daughter, cannot perform surgery not really a candidate for percutaneous drain either no longer tolerating tube feeds Have long since stopped the Cipro/Flagyl IV (3) Hemoptysis: Discontinued her Eliquis no further bleeding (4) Candidal urinary tract infection: was on caspofungin. now discontinued (5) MANJULA (acute kidney injury): patient was dehydrated on admission Cr tamera to 3-4 but then was back to baseline at 1 with IV fluids no further blood draws (6) Hypernatremia: No longer checking labs (7) Atrial fibrillation: No further treatment or anticoagulation (8) Hypothyroidism: Not giving Synthroid (9) Chronic diastolic CHF (congestive heart failure): Chronic, is hypovolemic due to no p.o. intake in a month (10) Chronic kidney disease, stage III (moderate): As above (11) Depression: stopped celexa (12) Orthostatic hypotension: Not receiving treatment (13) GERD (gastroesophageal reflux disease): stopped meds (14) Sepsis: treated for pneumonia and and then treated for cholecystitis Now on comfort measures (15) Peripheral edema: diffuse ecchymosis and edema due to protein level of 1.1, no oncotic pressure Could not improve albumin level even on tube feeds Now on comfort measures (16) Hypokalemia: no further blood draws (17) Severe protein-calorie malnutrition: had to stop tube feeds due to elevated residuals cannot tolerate Reglan due to allergy severe diarrhea, not absorbing anything no further nutrition (18) Anemia: No longer checking (19) Hypophosphatemia: no further draws Disposition-patient remains on a morphine drip and is completely obtunded, has not eaten or drank anything in almost a month. She is comfortable and I expect her to pass away in the next 2-3 days. Subjective Patient obtunded, not responsive Discussed case with RN-patient has been comfortable on morphine drip, no overnight events Physical Exam 2 Vital Signs (Past 24 Hours): Last Vital Signs Temp 36.8 C 08/14/18 07:56 Pulse 56 L 08/14/18 07:56 Resp 22 08/14/18 07:56 BP 142/69 H 08/14/18 07:56 Pulse Ox 95 08/14/18 07:56 Constitutional: + ill appearing; no acute distress Neck: + abnormal visual inspection (Tracheostomy tube in place) Respiratory: + abnormal respiratory effort (Shallow respirations) Cardiovascular: Rate/Rhythm: regular rate and regular rhythm Extremities: + edema (Trace pitting edema in the lower extremities) Musculoskeletal: Extremities: extremities normal to inspection; no cyanosis and no clubbing Skin: no rashes, warm and dry Neurologic: + obtunded _ (1) Atrial fibrillation Atrial fibrillation type: chronic Qualified Code(s): I48.2 - Chronic atrial fibrillation (2) Hypothyroidism Hypothyroidism type: acquired Qualified Code(s): E03.9 - Hypothyroidism, unspecified (3) Depression Depression Type: major depressive disorder Major depression recurrence: unspecified whether recurrent Active/Remission status: currently active Major depression episode severity: moderate Psychotic features: Trimester: Qualified Code(s): F32.1 - Major depressive disorder, single episode, moderate (4) GERD (gastroesophageal reflux disease) Esophagitis presence: without esophagitis Qualified Code(s): K21.9 - Gastro- esophageal reflux disease without esophagitis
[2018-09-06] MEDS: CHECK SCOPOLAMINE PATCH PLACEMENT SCH ×3 (07:35→15:38)
[2018-09-06] MEDS: SCOPOLAMINE 1.5 MG TDSY TD SCH (15:38)
[2018-09-07] MEDS: CHECK SCOPOLAMINE PATCH PLACEMENT SCH ×2 (01:24→09:01)
[2018-09-07] MEDS: LORazepam 1 MG/2 ML VIAL IV SCH ×4 (01:42→13:11)
--- NOTE | 2018-09-07 08:18 | Hospitalist Progress Note ---
Date of Service September 07, 2018 Assessment & Plan (1) Acute and chronic respiratory failure with hypoxia: patient with thick secretions from trachea, respiratory status deteriorating patient no longer wants treatment would not want ventilation if breathing gets worse refusing all medications, even IV medications, does not want feedings via NGT made patient comfort care on 08/05 Atropine, Scopolamine, Ativan and Morphine PRN stop blood draws stop other medications -Continue Ativan scheduled Continue on morphine drip keep inpatient comfort measures (2) Chronic cholecystitis: US with evidence of small stones and sludge but equivocal for infection HIDA showed no evidence of cystic duct obstruction thus ruling out acute cholecystitis however, there was delayed filling of gall bladder and EF was noted to be 5% diagnosis would be chronic cholecystitis vs dykinesis d/w daughter, cannot perform surgery not really a candidate for percutaneous drain either no longer tolerating tube feeds Have long since stopped the Cipro/Flagyl IV (3) Hemoptysis: Discontinued her Eliquis no further bleeding (4) Candidal urinary tract infection: was on caspofungin. now discontinued (5) MANJULA (acute kidney injury): patient was dehydrated on admission Cr tamera to 3-4 but then was back to baseline at 1 with IV fluids no further blood draws (6) Hypernatremia: No longer checking labs (7) Atrial fibrillation: No further treatment or anticoagulation (8) Hypothyroidism: Not giving Synthroid (9) Chronic diastolic CHF (congestive heart failure): Chronic, is hypovolemic due to no p.o. intake in a month (10) Chronic kidney disease, stage III (moderate): As above (11) Depression: stopped celexa (12) Orthostatic hypotension: Not receiving treatment (13) GERD (gastroesophageal reflux disease): stopped meds (14) Sepsis: treated for pneumonia and and then treated for cholecystitis Now on comfort measures (15) Peripheral edema: diffuse ecchymosis and edema due to protein level of 1.1, no oncotic pressure Could not improve albumin level even on tube feeds Now on comfort measures (16) Hypokalemia: no further blood draws (17) Severe protein-calorie malnutrition: had to stop tube feeds due to elevated residuals cannot tolerate Reglan due to allergy severe diarrhea, not absorbing anything no further nutrition (18) Anemia: No longer checking (19) Hypophosphatemia: no further draws Disposition-patient remains on a morphine drip and is completely obtunded, has not eaten or drank anything in almost a month. She is comfortable and I expect her to pass away in the next 2-3 days. Subjective Pt remains obtunded, remains on morphine gtt, no issues as per nursing Review of Systems Unobtainable due to reduced consciousness Physical Exam 2 Vital Signs (Past 24 Hours): Last Vital Signs Temp 36.8 C 08/14/18 07:56 Pulse 56 L 08/14/18 07:56 Resp 22 08/14/18 07:56 BP 142/69 H 08/14/18 07:56 Pulse Ox 95 08/14/18 07:56 Constitutional: + ill appearing; no acute distress Neck: + abnormal visual inspection (Tracheostomy tube in place) Respiratory: + abnormal respiratory effort (Shallow respirations) Cardiovascular: Rate/Rhythm: regular rate and regular rhythm Extremities: + edema (Trace pitting edema in the lower extremities) Musculoskeletal: Extremities: extremities normal to inspection; no cyanosis and no clubbing Skin: no rashes, warm and dry Neurologic: + obtunded _ (1) Atrial fibrillation Atrial fibrillation type: chronic Qualified Code(s): I48.2 - Chronic atrial fibrillation (2) Hypothyroidism Hypothyroidism type: acquired Qualified Code(s): E03.9 - Hypothyroidism, unspecified (3) Depression Depression Type: major depressive disorder Major depression recurrence: unspecified whether recurrent Active/Remission status: currently active Major depression episode severity: moderate Psychotic features: Trimester: Qualified Code(s): F32.1 - Major depressive disorder, single episode, moderate (4) GERD (gastroesophageal reflux disease) Esophagitis presence: without esophagitis Qualified Code(s): K21.9 - Gastro- esophageal reflux disease without esophagitis
--- NOTE | 2018-09-07 08:41 | Hospitalist Progress Note ---
Date of Service September 07, 2018 Assessment & Plan (1) Acute and chronic respiratory failure with hypoxia: patient with thick secretions from trachea, respiratory status deteriorating patient no longer wants treatment would not want ventilation if breathing gets worse refusing all medications, even IV medications, does not want feedings via NGT made patient comfort care on 08/05 Atropine, Scopolamine, Ativan and Morphine PRN stop blood draws stop other medications -Continue Ativan scheduled Continue on morphine drip keep inpatient comfort measures (2) Chronic cholecystitis: US with evidence of small stones and sludge but equivocal for infection HIDA showed no evidence of cystic duct obstruction thus ruling out acute cholecystitis however, there was delayed filling of gall bladder and EF was noted to be 5% diagnosis would be chronic cholecystitis vs dykinesis d/w daughter, cannot perform surgery not really a candidate for percutaneous drain either no longer tolerating tube feeds Have long since stopped the Cipro/Flagyl IV (3) Hemoptysis: Discontinued her Eliquis no further bleeding (4) Candidal urinary tract infection: was on caspofungin. now discontinued (5) MANJULA (acute kidney injury): patient was dehydrated on admission Cr tamera to 3-4 but then was back to baseline at 1 with IV fluids no further blood draws (6) Hypernatremia: No longer checking labs (7) Atrial fibrillation: No further treatment or anticoagulation (8) Hypothyroidism: Not giving Synthroid (9) Chronic diastolic CHF (congestive heart failure): Chronic, is hypovolemic due to no p.o. intake in a month (10) Chronic kidney disease, stage III (moderate): As above (11) Depression: stopped celexa (12) Orthostatic hypotension: Not receiving treatment (13) GERD (gastroesophageal reflux disease): stopped meds (14) Sepsis: treated for pneumonia and and then treated for cholecystitis Now on comfort measures (15) Peripheral edema: diffuse ecchymosis and edema due to protein level of 1.1, no oncotic pressure Could not improve albumin level even on tube feeds Now on comfort measures (16) Hypokalemia: no further blood draws (17) Severe protein-calorie malnutrition: had to stop tube feeds due to elevated residuals cannot tolerate Reglan due to allergy severe diarrhea, not absorbing anything no further nutrition (18) Anemia: No longer checking (19) Hypophosphatemia: no further draws Disposition-patient remains on a morphine drip and is completely obtunded, has not eaten or drank anything in almost a month. She is comfortable and I expect her to pass away in the next 2-3 days. Physical Exam 2 Vital Signs (Past 24 Hours): Last Vital Signs Temp 36.8 C 08/14/18 07:56 Pulse 56 L 08/14/18 07:56 Resp 22 08/14/18 07:56 BP 142/69 H 08/14/18 07:56 Pulse Ox 95 08/14/18 07:56 _ (1) Atrial fibrillation Atrial fibrillation type: chronic Qualified Code(s): I48.2 - Chronic atrial fibrillation (2) Hypothyroidism Hypothyroidism type: acquired Qualified Code(s): E03.9 - Hypothyroidism, unspecified (3) Depression Depression Type: major depressive disorder Major depression recurrence: unspecified whether recurrent Active/Remission status: currently active Major depression episode severity: moderate Psychotic features: Trimester: Qualified Code(s): F32.1 - Major depressive disorder, single episode, moderate (4) GERD (gastroesophageal reflux disease) Esophagitis presence: without esophagitis Qualified Code(s): K21.9 - Gastro- esophageal reflux disease without esophagitis
[2018-09-07] MEDS: MoRPHine SULF/NSS 250 MG/250 ML BTL IV SCH (10:39)
[2018-09-07] MEDS ORDERED: MoRPHine SULF/NSS 250 MG/250 ML BTL IV SCH (11:45)
[2018-09-07] MEDS ORDERED: ATROPINE SULFATE 1% OP SOLN 5 ML BTL OP SCH (12:00)
--- NOTE | 2018-09-07 13:51 | Discharge Summary ---
Date of Service September 07, 2018 Time of is 1152 daughter was at bedside Admission HPI Per Admitting Provider Patient is an 83yo female with multiple medical problems to include AF, GERD, s/ p tracheostomy on trach collar, CKD III, chronic diastolic CHF. She was recently admitted in early May with acute hypoxic respiratory failure secondary to RLL PNA. She was discharged to [facility] and then home. She presents today with her daughter with complaints of not feeling well, increase in fatigue and decreased responsiveness. She was coughing up thick, brown secretions over the weekend which changed to bright red blood today - noted on deep suction. Daughter also reports increase in patient's heart rate over the weekend to 110's. No additional complaints. Daughter reports that the patient has a cuffed tracheostomy tube in place but the cuff has been deflated. Er Course: NSS x 750mL Principal Diagnosis pneumonitis secondary to dysphagia Discharge Exam Is called to the patient's room his nurses know she is ceased to breathe. She was examined for 60 seconds without any spontaneous heart tones or respiratory rate or attempt. Patient was pronounced at 1152 hrs. Discharge Data Allergies Allergy/AdvReac Type Severity Reaction Status Date / Time adhesive Allergy Severe TAPE-REDNESS, Verified 03/19/18 10:33 BLISTERS pneumococcal vaccine Allergy Severe SHORTNESS Verified 03/19/18 10:33 OF BREATH phenazopyridine Allergy Intermediate abdominal Verified 03/19/18 10:33 pain/rash erythromycin base Allergy Mild RASH Verified 03/19/18 10:33 metronidazole Allergy Mild skin rash Verified 07/23/18 22:10 salicylates Allergy Unknown pt states Verified 03/19/18 10:33 rash with ASA 325 but not ASA 81mg Sulfa (Sulfonamide Allergy Unknown ON MED LIST Verified 03/19/18 10:33 Antibiotics) tetracycline Allergy Unknown RASH Verified 03/19/18 10:33 morphine AdvReac Intermediate urinary Verified 03/19/18 10:33 retention -oral morphine only diltiazem AdvReac Mild FLUID Verified 03/19/18 10:33 RETENTION metoclopramide AdvReac Mild TREMORS Verified 03/19/18 10:33 bacitracin AdvReac Unknown "MAKES IT Verified 03/19/18 10:33 WORSE"-OK IF NOT OTC MEDICATION Consultations 07/23/18 20:48 ED Decision to Admit Stat 07/24/18 01:27 Consult Pulmonology Routine 07/24/18 11:00 Consult Palliative Care Routine 07/24/18 17:03 Consult Hack Driver Stat 07/25/18 07:58 Consult Nephrology Routine 07/25/18 15:09 Consult General Surgery Routine Ordered Studies 07/24/18 01:27 US liver Routine 07/24/18 18:28 US point of care ultrasound Routine 07/24/18 19:04 US point of care ultrasound Stat 07/28/18 10:57 US venous doppler UE LT Routine 07/28/18 10:58 US arterial duplex UE LT Routine Hospital Course (1) : Patient was pronounced at 1152 hrs. a.m. cause of was initially pneumonitis from dysphasia and then she was placed on comfort measures and had declined. Her previous health problems listed below and the summaries within the sections are from her previous hospital stay (2) Acute and chronic respiratory failure with hypoxia: patient with respiratory status deteriorating on 09/07 daughter was notified PT did not want ventilation if breathing worsened refusing all medications, even IV medications, does not want feedings via NGT made patient comfort care on 08/05 Atropine, Scopolamine, Ativan and Morphine PRN -Continue Ativan scheduled Continue on morphine drip keep inpatient comfort measures (3) Chronic cholecystitis: US with evidence of small stones and sludge but equivocal for infection HIDA showed no evidence of cystic duct obstruction thus ruling out acute cholecystitis however, there was delayed filling of gall bladder and EF was noted to be 5% diagnosis would be chronic cholecystitis vs dykinesis previously d/w daughter, cannot perform surgery not a candidate for percutaneous drain either (4) Hemoptysis: Discontinued her Eliquis no further bleeding (5) Candidal urinary tract infection: was on caspofungin. now discontinued (6) MANJULA (acute kidney injury): patient was dehydrated on admission Cr tamera to 3-4 but then was back to baseline at 1 with IV fluids no further blood draws (7) Hypernatremia: No longer checking labs (8) Atrial fibrillation: No further treatment or anticoagulation (9) Hypothyroidism: Not giving Synthroid (10) Chronic diastolic CHF (congestive heart failure): Chronic, is hypovolemic due to no p.o. intake in a month (11) Chronic kidney disease, stage III (moderate): As above (12) Depression: stopped celexa (13) Orthostatic hypotension: Not receiving treatment (14) GERD (gastroesophageal reflux disease): stopped meds (15) Sepsis: treated for pneumonia and and then treated for cholecystitis Now on comfort measures (16) Peripheral edema: diffuse ecchymosis and edema due to protein level of 1.1, no oncotic pressure Could not improve albumin level even on tube feeds On comfort measures (17) Hypokalemia: no further blood draws (18) Severe protein-calorie malnutrition: had to stop tube feeds due to elevated residuals cannot tolerate Reglan due to allergy severe diarrhea, not absorbing anything no further nutrition (19) Anemia: No longer checking (20) Hypophosphatemia: no further draws Total Time Total Time Spent Total Time Spent (In Minutes): greater than 30 minutes were required to prepare discharge Discharge Plan Discharge Items Disposition: Reason For Visit: BLEEDING AT TRACH SITE Admission Data Admit Date/Time: 07/23/18 22:37 Attending Provider: Chad Jett Admit Provider: Paige Estrada Primary Care Provider: Emilio De Souza Other Providers: Paige Estrada ; Bradford Matthew ; Jalen See ; Madonna Prasad ; Justo Brewer ; Xenia Maldonado ; Omid Sandoval ; Chad Khalil ; Ana Euceda ; Henna Swanson ; Brannon Zaidi ; Kj Oleary ; Dewayne Son ; Delmi Georges ; Huber Armas ; David Garcia ; Keshav Canales ; Sydnee Lockwood Service: Medical Other ID Date/Time DO NOT enter until pt leaves facility: 09/07/18 11:52
--- NOTE | 2018-09-13 07:54 | Coding Query ---
PRESENT ON ADMISSION QUERY To promote full compliance with coding requirements relating to pateint care, physician participation is requested in all cases of riveter uncertainty. Please assist us with the question(s) below: Please place an X within the parenthesis (x). The following diagnosis(es) listed in this patient's medical record require physician assistance to determine if they were present on admission (POA) or not. Please advise for each diagnosis whether it was present on admission, not present on admission, or if it was clinically undetermined. 1. SEPSIS (not documented until 07/24 with patient admitted 07/23) ( xx) Present On Admission ( ) Not Present On Admission ( ) Clinically Undetermined 2. Possible Pneumonia (not documented until 07/24 with patient admitted 07/23) ( xx) Present On Admission ( ) Not Present On Admission ( ) Clinically Undetermined Thank you Radha Meyer *Definition of the present on admission (POA)-Present on admission is defined as present at the time the order for inpatient admission occurs. Conditions that develop during an outpatient encounter prior to a written order for inpatient admission (including emergency department, observation, or outpatient surgery) are considered present on admission. BREANA
== END 2018-09-07 11:52 | disposition expired | DRG 871 ==
LOC: ED 18:19 → SUATTDRO 22:37 → 4E 22:37 → 1E 07-24 17:01 → 4E 07-27 11:56